=== PATIENT | male | born 1970 | race Caucasian/White ===

== ENCOUNTER 2024-09-23 12:54 | Outpatient (OUT) | payer MEDICARE, SELFPAY ==
--- NOTE | 2024-09-23 14:14 | P.CN_ITS ---
Consult Note: HPI Data of Consult Patient: new to practice Consult date: 09/23/24 Requesting Physician: Winston Owens MD Primary Care Provider: Non-Staff Physician, Consult Narrative Reason for consult: low back pain Narrative: 54yom who presents for evaluation. longstanding history of low back pain. imagi ng reviewed, shows moderate to severe facet arthropathy in lower lumbar spine. has completed >6 weeks of provider directed home exercises, without benefit. uses percocet, gabapentin, thc gummies. denies adverse med side effects. cc:: CC: Winston Owens MD Review of Systems ROS Status of ROS 10 or more systems reviewed and unremark able except as noted in history and below Exam Narrative Exam Narrative: Psych-alert and oriented x 3. Attentive and appropriate, constitutionally normal, displays normal mood and affect per situation.? There are no obvious deficits in memory, reasoning, or intellect.? Skin-no obvious rashes, bruising, erythema noted to the patient's area of pain. Extremities- extremities are warm with minimal edema and palpable pulses. Lumbar-no significant tenderness to palpation noted in the lumbar spine and paraspinal musculature.? Pain is elicited with extension, and lateral rotation of the lumbar spine. Range of motion is slightly diminished with these motions due to pain. Facet loading maneuvers are positive bilaterally and do appear to be concordant with the patient's normal complaints of pain.? Coordination remains intact.? Gait remains non-antalgic. Assessment and Plan Assessment and Plan (1) Lumbar spondylosis: (2) Lumbar stenosis with neurogenic claudication: Plan 54yom who presents for evaluation. failed conservative measures, as noted. imaging reviewed, as noted. given symptoms and imaging, prudent to attempt diagnostic bilateral l4-5, l5-s1 medial branch block under fluoroscopic guidance with intention of proceeding to radiofrequency ablation. he is in agreement. meds reviewed. uds obtained. agreed to prescribe percocet 5mg tid prn, as well as gabapentin 300mg tid. discussed that he needed to stop thc gummies. he expressed understanding. will recheck uds in 6 weeks. follow up after procedure.
== END 2024-09-23 12:55 | disposition home or self-care (01) ==
PROVIDERS: Visit Provider Anesthesiology
DX: M47.816 Spondylosis without myelopathy or radiculopathy, lumbar region (principal); M48.062 Spinal stenosis, lumbar region with neurogenic claudication
CPT/HCPCS: G0463

== ENCOUNTER 2024-11-04 09:17 | Day surgery (SDC) | payer MEDICARE, SELFPAY ==
[2024-11-04 09:50] LABS: Glucometer 165 mg/dL (74-106)
[2024-11-04 09:56] VITALS: BP 145/93; PULSE 108; TEMP 36.5; O2SAT 98
[2024-11-04 10:21] VITALS: BP 151/91; PULSE 90; O2SAT 95
[2024-11-04 10:22] VITALS: BP 148/89; PULSE 92; O2SAT 93
--- NOTE | 2024-11-04 10:24 | W.PM.PROCNOT ---
Date of procedure: 11/04/24 Pre-op diagnosis: Pain due to lumbar spondylosis without myelopathy Post-op diagnosis: same as pre-op Procedure: Procedure: Bilateral L4-5, L5-S1 medial branch block Medications: Bupivacaine 0.25% 6cc The patient was seen and examined in the preoperative holding area.? An informed consent was obtained and placed on the chart.? The patient was brought to the medical procedure unit and placed in the prone position.? A timeout was completed verifying correct patient, procedure site, positioning, plan, and special equipment.? Using aseptic technique, the needle was placed at left L4. Under direct fluoroscopic visualization a Quincke-tipped spinal needle was advanced to the junction of the superior articulating process with the transverse process at the designated medial branch segment.? Preceded by negative aspiration, the above-mentioned injectate was placed in 1 mL aliquots.? The procedure was repeated at left L5, S1.? The needle was removed and insertion site was covered. The same procedure, at the same levels, was completed on the right side. The patient was taken to the postprocedural recovery area and monitored for an appropriate length of time before found suitable for discharge in the company of a responsible adult. Anesthesia: Local Surgeon: Winsotn Owens Pathology: none sent Condition: stable Disposition: no change
[2024-11-04] MEDS: BUPIVACAINE HCL 0.25% PF 25 MG/10 ML VIAL 8 ML INJ (10:25)
[2024-11-04] MEDS: LIDOCAINE HCL 2% 400 MG/20 ML MDV 4 ML INJ (10:25)
== END 2024-11-04 10:30 | disposition home or self-care (01) ==
LOC: SURGOUT 09:18
PROVIDERS: Visit Provider Anesthesiology
DX: M47.816 Spondylosis without myelopathy or radiculopathy, lumbar region (principal); M54.50 Low back pain, unspecified; E11.8 Type 2 diabetes mellitus with unspecified complications; Z79.85 Long-term (current) use of injectable non-insulin antidiabetic drugs; Z79.84 Long term (current) use of oral hypoglycemic drugs; Z79.4 Long term (current) use of insulin
CPT/HCPCS: 36415; 64493; 64494; 82948; J0665

== ENCOUNTER 2024-11-06 13:57 | Outpatient (OUT) | payer MEDICARE, SELFPAY ==
--- NOTE | 2024-11-06 14:27 | P.CN_ITS ---
Consult Note: HPI Data of Consult Patient: known to practice within the last 3 years Requesting Physician: June Silveira NP Primary Care Provider: Non-Staff Physician, MD Consult Narrative Reason for consult: f/u Narrative: Marcelino Tracey a 54 year old male presents for evaluation of chronic low back pain secondary to lumbar facet arthropathy, lumbar DDD, spinal stenosis secondary to disc bulge. pt has failed to benefit from >6 weeks of PT and provider guided HEP, heat, ice, tylenol and NSAIDs. unfortunately pt failed his UDS as he was taking a family members methadone and we do not recommend controlled substances as part of his treatment plan. he recently underwent bilateral L4-5 L5-S1 mbb #1 with mild relief. cc:: CC: June Silveira NP Review of Systems ROS Status of ROS 10 or more systems reviewed and unremark able except as noted in history and below Musculoskeletal Reports: back pain, extremity pain and joint pain PFSH PFSH Medical History (Updated 11/06/24 @ 14:30 by June Silveira NP) Diabetes ?E11.9 - Type 2 diabetes mellitus without complications (ICD-10) Meds Home Medications and Allergies Home Medications ?Medication ?Instructions ?Recorded ?Confirmed ?Type gabapentin 300 mg capsule 300 mg PO TID #90 caps 09/23/24 11/04/24 Rx oxycodone-acetaminophen 5 mg-325 1 tab PO TID PRN pain #90 tabs 09/23/24 Rx mg tablet (Percocet) albuterol sulfate 90 mcg/actuation 2 inh inhalation Q6H PRN shortness 10/08/24 11/04/24 History aerosol inhaler (Ventolin HFA) of breath or wheezing carvedilol 3.125 mg tablet 3.125 mg PO Q12H 10/08/24 11/04/24 History citalopram 20 mg tablet 20 mg PO DAILY 10/08/24 11/04/24 History colestipol 1 gram tablet 1 g PO DAILY 10/08/24 11/04/24 History cyclobenzaprine 10 mg tablet 10 mg PO Q12H PRN spasms 10/08/24 11/04/24 History eluxadoline 100 mg tablet (Viberzi) 100 mg PO BID 10/08/24 11/04/24 History fenofibrate 160 mg tablet 160 mg PO DAILY 10/08/24 11/04/24 History hydrochlorothiazide 25 mg tablet 25 mg PO DAILY 10/08/24 11/04/24 History hyoscyamine sulfate 0.125 mg tablet 0.125 mg PO Q6H 10/08/24 11/04/24 History insulin aspart 1 sliding scale dose subcut 10/08/24 11/04/24 History (niacinamide)(U-100) 100 unit/mL(3 USEASDIRECTD mL) subcutaneous pen (Fiasp FlexTouch U-100 Insulin) insulin degludec 100 unit/mL (3 20 unit subcut DAILY 10/08/24 11/04/24 History mL) subcutaneous pen (Tresiba FlexTouch U-100 insulin) linagliptin 2.5 mg-metformin 1,000 1 tab PO BID 10/08/24 11/04/24 History mg tablet (Jentadueto) losartan 50 mg tablet 50 mg PO DAILY 10/08/24 11/04/24 History magnesium oxide 400 mg (241.3 mg 400 mg PO DAILY 10/08/24 11/04/24 History magnesium) tablet omeprazole 40 mg capsule,delayed 40 mg PO DAILY 10/08/24 11/04/24 History release ondansetron 4 mg disintegrating 4 mg translingual Q8H PRN nausea 10/08/24 11/04/24 History tablet and vomiting rifaximin 550 mg tablet (Xifaxan) 550 mg PO BID 10/08/24 11/04/24 History semaglutide 0.25 mg or 0.5 mg (2 0.5 mg subcut QWEEK 10/08/24 11/04/24 History mg/3 mL) subcutaneous pen injector (Ozempic) sucralfate 1 gram tablet 1 g PO Q6H 10/08/24 11/04/24 History tamsulosin 0.4 mg capsule 0.4 mg PO Q24H 10/08/24 11/04/24 History trazodone 50 mg tablet 50 mg PO DAILY 10/08/24 11/04/24 History Allergies Allergy/AdvReac Type Severity Reaction Status Date / Time insulin glargine (From Allergy Nausea Verified 11/04/24 09:55 Basaglar KwikPen U-100 Insulin) Exam Constitutional Documenting provider has reviewed patient's vital signs: yes Common normals: no apparent distress, oriented x3, healthy appearing, alert and well nourished General appearance: cooperative HENMT Common normals: normocephalic, hearing grossly normal bilaterally and moist oral mucous membranes Head and scalp: normocephalic Eye Common normals: PERRL Pupil: PERRL Neck & C-Spine Common normals: full ROM General: normal visual inspection Chest Common normals: inspection of chest normal Respiratory Common normals: normal respiratory effort, no retractions and no use of accessory muscles Back & Pelvis Lumbar spine/lower back: ROM limited, pain with ROM, lumbar spinal tenderness, paraspinal muscle tenderness and straight leg raise positive right Sacroiliac joints: SI joint(s) abnormal Other: decreased sensation right L4,5,S1 strength 4/5 in RLE 5/5 in LLE right SIJ positive nidia(patricks), gaenslens, thigh thrust, compression test Neuro Common normals: oriented x3, CN's II-XII intact bilaterally, moves all extremities, no focal motor deficits, no sensory deficits noted and deep tendon reflexes 2+ bilaterally Sensorium/orientation: alert Motor exam: strength 5/5 throughout and no movement abnormalities noted Psych Common normals: mental status grossly normal, thought process normal, cooperative, affect normal, speech normal and activity/motor behavior normal Speech: normal speech Thought process: normal thought process Results Additional Findings Additional findings: If on a controlled substance or opioids, I have checked an [place] report on this patient and there are no aberrancies noted in the prescribing history.??If on a controlled substance or opioid a drug screen was completed and reviewed within the last year, and if there has not been a drug screen completed we ordered one today to monitor higher risk, state monitored pain medication use. As part of providing excellent, safe, comprehensive care, the following was completed at our patient's visit: 1. A medication reconciliation and review to ensure accurate knowledge of current/active medications, including asking our patients to inform us about any [id number] medications or herbal remedies/nutritional supplements/alternative remedies. 2. A review to specifically ensure our patients have had annual screening for screening for depression, screening for tobacco use, and screening for unhealthy alcohol use. For concerning screenings had a discussion with the patient, provided patient education, and recommended follow-up with primary care provider when appropriate. If patient noted with a risk of falling, they received education on strength, gait, and balance training to prevent future risk of falling. Portions of this note may have been carried over from the previous visit and updated as appropriate. Please note this office utilizes paper charting in addition to the electronic medical record. A list of current medications, vitals, and PMH is available there as the clinical staff outside of myself do not have access to [employer] charting during the clinic day operations. As part of providing quality comprehensive care the current medications, vitals, and PMH were reviewed in the paper chart. Assessment and Plan Assessment and Plan (1) Lumbar stenosis with neurogenic claudication: Assessment and Plan: The patient has had over 3 months of moderate to severe low back and leg pain with functional impairment and inadequate response to conservative care including NSAIDS (unless there are contraindication such as concurrent blood thinners), multiple oral or topical pain medications, and home exercise pr ogram/physical therapy.? Patient has completed >6 weeks of guided home exercise program and/or formal physical therapy program without relief of their symptoms.? I have reviewed the imaging of the lumbar spine and no red flags were identified.? The imaging reveals radiographic findings consistent with lumbar stenosis with NC The Oswestry Disability Index was completed, and the patient scored a 70%.? The patient noted the following:?? moderate to severe pain with ADLs, standing, sitting, walking, sleeping, social life and travel We discussed the risks and benefits of the procedure with the patient, and we are NOT planning on using sedation as outlined in the guidelines from Medicare unless there is a documented reason that sedation would be strongly recommended.?? ?The procedure will be completed with fluoroscopic guidance.? (2) Sacroiliitis: Assessment and Plan: as noted above right positive nidia(patricks), gaenslens, thigh thrust, compression test (3) Lumbar spondylosis: Plan right L4-5 L5-S1 TFESI under fluoroscopy defer medication management continue HEP as tolerated consider right SIJ injection f/u after TFESI
== END 2024-11-06 13:58 | disposition home or self-care (01) ==
LOC: PM 13:57
PROVIDERS: Visit Provider Nurse Practitioner
DX: M48.062 Spinal stenosis, lumbar region with neurogenic claudication (principal); M46.1 Sacroiliitis, not elsewhere classified; M47.816 Spondylosis without myelopathy or radiculopathy, lumbar region
CPT/HCPCS: G0463

== ENCOUNTER 2024-12-27 20:51 | Emergency (ER) | payer MEDICARE, SELFPAY ==
[2024-12-27 21:04] VITALS: BP 150/99; PULSE 82; TEMP 36.7; O2SAT 95; BMI 30.3
--- OUTSIDE RECORDS SUMMARY | 2024-12-27 21:07 | XMS_ITS | CCD ---
Author Organization [facility] InformFormerly [facility] Care Team Providers Care Medical Accounting Clerk Name Role Phone DES FLORES Unavailable Unavailab le DES FLORES Unavailable Unavailab [facility] Admitting Unavailable [facility] Attending Unavailable ANSELMO GARCÍA Consulting Unavailable [facility] Consulting Unavailable Jd Du Primary Care Provider Jeff Mandel Attending Provider Jeff Mandel Unavailable Bird Slade Unavailable Asa Moeller Unavailable LUIS Du Primary Care Provider MD Asa Moeller Attending Provider [phone] Yung Figueroa Unavailable [phone] Sugar Knight Unavailable Guillermo Thornton Unavailable LUIS Du Primary Care Provider MD Asa Moeller Attending Provider [phone] [place] Unavailable LUIS Du Primary Care Provider MD Guillermo Thornton Attending Provider MD Jayleen Guaman Attending Provider [phone] LUIS Du Primary Care Provider MD Guillermo Thornton Attending Provider [phone] LUIS Du Primary Care Provider MD Guillermo Thornton Attending Provider [phone] JOHN Morel Jun Emergency Provider LUIS Du Attending Provider LUIS Du Primary Care Provider JD DU Primary Care Unavailable GEOFFREY MCKEE Attending Unavailable JEFF MARTIN Admitting Unavailable KATHERYN, ANNE F Consulting Unavailable MÓNICA PORTILLO Referring Unavailable DU, JD A Primary Care Unavailable LURINGERICK Admitting Unavailabl e LUERICK MARTÍNEZ Attending Unavailabl e AYANNA, JD A Primary Care Unavailable POTTSERINGY, CORTES P Consulting Unavailable EDIE ARREOLA Referring Unavailable DU, JD A Primary Care Unavailable DU, JD A Referring Unavailable DU, JD A Primary Care Unavailable CHEY LANZA Referring Unavailable AYANNA, JD A Primary Care Unavailable AYANNA, JD A Referring Unavailable AYANNA, JD A Primary Care Unavailable JALEN GAN Attending Unavailable AYANNA, JD A Primary Care Unavailable MARC KYES Attending Unavailable HEMATOLOGY, [facility] Consulting Laura vailable SHAYLA, LEATHA P Admitting Unavailable KATHERYN, ANNE F Consulting Unavailable CAYGITONG ESPINOZA Referring Unavailable DU, JD A Primary Care Unavailable POTHIREVERONICAY, CORTES P Attending Unavailable POTTSERINGY, CORTES P Referring Unavailable AYANNA, JD A Primary Care Unavailable ERICK SHARP Referring Unavailabl e AYANNA, JD A Primary Care Unavailable ERICK SHARP Attending Unavailabl e AYANNA JD A Primary Care Unavailable DEL VALLE, RUQIYYA T Admitting Unavailable DEL VALLE, RUQIYYA T Consulting Unavailable SHAYLA, LEATHA P Referring Unavailable DU, JD A Primary Care Unavailable MARQUEZTOM N Referring Unavailable DU, JD A Primary Care Unavailable CHEY LANZA Referring Unavailable AYANNA, JD A Primary Care Unavailable ANG FIGUEROA Attending Unavailable AYANNA, JD A Referring Unavailable DU, JD A Primary Care Unavailable MARQUEZ, TOM N Referring Unavailable DU, JD A Primary Care Unavailable ANG FIGUEROA Referring Unavailable ALCIDES, CLEMSON Primary Care Unavailable ANG FIGUEROA Attending Unavailable AYANNA, JD A Referring Unavailable ALCIDES, CLEMSON Primary Care Unavailable REHANA RETANA Referring Unavailable ALCIDES, CLEMSON Primary Care Unavailable ANG FIGUEROA Attending Unavailable ALCIDES, DIANE Referring Unavailable ALCIDES, DIANE Primary Care Unavailable TOM MARQUEZ Referring Unavailable ALCIDES, CLEMSON Primary Care Unavailable TANK, ANG Referring Unavailable LACIDES, DIANE Primary Care Unavailable TANK, ANG Attending Unavailable ALCIDES, DIANE Referring Unavailable ALCIDES, DIANE Primary Care Unavailable TANK, ANG Referring Unavailable MAURO, FRANCISCA Primary Care Unavailable TANK, ANG Attending Unavailable ALCIDES, DIANE Referring Unavailable MAURO, FRANCISCA Primary Care Unavailable Alcides DEPUTY JAILER, [place] Unavailable Novalocatpedro WILSON, [place] Provider [facility] WILSON, Marcell Unavailable DIONTE FREEMAN Attending Unavailable DIONTE FREEMAN Referring Unavailable CHEY ROMANO Attending Unavailable DIONTE FREEMAN Referring Unavailable DIONTE FREEMAN Attending Unavailable ERICK NAYLOR Attending Unavailable MARCELL BADILLO Referring Unavailable Mauro WILSON, [facility] Primary Care Provider [phone] Aby CADENA-CMarcell Attending Provider [facility] [phone] Jd Du PA-C Primary Care Provider [phone] Alcides HOSPITAL CHIEF FINANCIAL OFFICER-BLENDER HELPER, [place] Primary Care Provider Alcides HOSPITAL CHIEF FINANCIAL OFFICER-BLENDER HELPER, [place] Primary Care Provider Jun Arriola DO Unavailable [phone] Sulma AGUERO, Lorie Unavailable Gianna Hodge APRN.CNP Unavailable [phone] Jd Du PA-C Primary Care Provider Roman WILSON, Winston Glass Attending Unavailable Roman WILSON, Winston Glass Attending Unavailable JD UD Primary Care Unavailable MÓNICA PORTILLO Attending Unavailable MÓNICA PORTILLO Attending Unavailable MÓNICA PORTILLO Referring Unavailable JD DU Primary Care Unavailable MÓNICA PORTILLO Attending Unavailable MÓNICA PORTILLO Referring Unavailable JD DU Primary Care Unavailable ALCIDES, DIANE Referring Unavailable JD DU Primary Care Unavailable EDDIE TORRE Attending Unavailable ALCIDES, DIANE Referring Unavailable ALCIDES, DIANE Primary Care Unavailable ALCIDES, DIANE Primary Care Unavailable BRENNEN MICHELLE Attending Unavailable BRENNEN MICHELLE Referring Unavailable ALCIDES, DIANE Primary Care Unavailable BRENNEN MICHELLE Attending Unavailable BRENNEN MICHELLE Referring Unavailable ALCIDES, DIANE Primary Care Unavailable MAURO, FRANCISCA Referring Unavailable ALCIDES, DIANE Primary Care Unavailable ALCIDES, DIANE Primary Care Unavailable RACHEL CASTRO Attending Unavailable MARCELL BADILLO Referring Unavailable ALCIDES, DIANE Primary Care Unavailable MAURO, FRANCISCA Primary Care Unavailable SUNIL HART Attending Unavailabl e MAURO, FRANCISCA Primary Care Unavailable LAKSHMI DOSS Attending Unavailable Mauro MD [facility] Primary Care Provider VIVEK GILLIS I Attending Unavailable MAURO, FRANCISCA Referring Unavailable MAURO, FRANCISCA Primary Care Unavailable MAURO, FRANCISCA Referring Unavailable MAURO, FRANCISCA Primary Care Unavailable MARCELL BADILLO Attending Unavailable ALCIDES, DIANE Referring Unavailable MAURO, FRANCISCA Primary Care Unavailable JD DU Referring Unavailable JD DU Primary Care Unavailable Mauro MD, [facility] Primary Care Provider Guillermo Thornton MD Attending Provider [phone] Marcell Badillo Admitting Unavailable Marcell Badillo Attending Unavailable Mauro, Francisca Primary Care Unavailable Guillermo Thornton Admitting Unavailable Guillermo Thornton Attending Unavailable Mauro, Francisca Primary Care Unavailable Mauro MD, [facility] Primary Care Provider ABRAHAN RINALDI Admitting Unavailable MAURO, FRANCISCA Primary Care Unavailable IESHA ABRAHAN G Referring Unavailable ABRAHAN RINALDI Attending Unavailable JD DU Primary Care Unavailable ABRAHAN RINALDI Referring Unavailable VENNZAC CAMEJO Attending Unavailable JD DU Primary Care Unavailable ABRAHAN RINALDI Referring Unavailable MARTHA FAULKNER Referring Unavailable JD DU Primary Care Unavailable ABRAHAN RINALDI Attending Unavailable JD DU Primary Care Unavailable Unavailable Unavailable Unavailable Allergies Allergy Classification Reported Allergen(s) Allergy Type Date of Onset Reaction(s) Facility (20 sources) Insulin Glargine; Translations: [INSULIN GLARGINE] Drug Allergy 03-21-2023 GI intolerance, Nausea And Vomiting, GI Disturbance, GI Upset [facility] (5 sources) Clindamycin; Translations: [CLINDAMYCIN] Drug Allergy 11-28-2024 Other: See Comments [facility] Medications Current Medications Medication Drug Class(es) Dates Sig (Normalized) Sig (Original) acetaminophen 500 mg oral tablet (16 sources) Start: 02-12-2024 End: 02-22-2024 take 1 tablet by mouth every four hours as needed for pain acetaminophen (TYLENOL EXTRA STRENGTH) 500 mg tablet Indications: Closed fracture of right hip, initial encounter ([facility]) Take 1 tablet (500 mg total) by mouth every 4 (four) hours as needed for pain for up to 10 days. 60 tablet 02/12/2024 02/22/2024 Active Start: 02-03-2024 End: 02-13-2024 take 2 tablets by mouth three times daily acetaminophen (TYLENOL EXTRA STRENGTH) 500 mg tablet Take 2 tablets (1,000 mg total) by mouth 3 (three) times a day for 10 days. 02/03/2024 02/12/2024 Discontinued (Reorder) Start: 01-29-2024 take 1 tablet by afua th every eight hours 1,000 mg, oral, Every 8 hours, First dose on Mon01/29/24 at 1200, Recommend minimized narcotics, while still providing adequate analgesia, to minimize risk of sedation and delirium. The oral route is preferred for patients tolerating oral intake without nausea and vomiting. Use IV pain medications if the oral route is ineffective for symptom control, or if patient unable to take medications orally. Start: 01-17-2024 End: 01-22-2024 take 1000 mg by mouth every six hours 1,000 mg, oral, Every 6 hours scheduled, First dose on Mon01/17/24 at 1800 Start: 11-03-2021 End: 02-03-2024 take 2 tablets by mouth every six hours acetaminophen (TYLENOL EXTRA STRENGTH) 500 mg tablet Take 2 tablets (1,000 mg total) by mouth every 6 (six) hours. 30 tablet 11/03/2021 02/03/2024 Discontinued acetaminophen 325 mg / oxyCODONE hydrochloride 5 mg oral tablet (20 sources) Opioid Agonist Start: 08-08-2024 End: 09-04-2024 oxyCODONE-acetaminophen (PERCOCET) 5-325 mg per tablet Indications: Lumbar radiculopathy, chronic Take 1 tablet by mouth every 8 (eight) hours as needed for pain. Max Daily Amount: 3 tablets 21 tablet 09/04/2024 Active Start: 07-31-2024 End: 08-05-2024 oxyCODONE-acetaminophen (PER COCET) 5-325 mg per tablet Indications: Lumbar radiculopathy, chronic Take 1 tablet by mouth every 8 (eight) hours as needed for pain. Max Daily Amount: 3 tablets 21 tablet 07/31/2024 08/05/2024 Discontinued (Reorder) Start: 07-18-2024 End: 07-25-2024 oxyCODONE-acetaminophen (PER COCET) 5-325 mg per tablet Indications: Lumbar radiculopathy, chronic Take 1 tablet by mouth every 8 (eight) hours as needed for pain. Max Daily Amount: 3 tablets 21 tablet 07/24/2024 Active Start: 08-27-2022 take 1 tablet by afua th twice daily as needed oxyCODONE-Acetaminophen 5-325 MG 1 table t as needed Oral twice daily (*do not refill until 08/27/22) for 30 days G89.29 Chronic pain Aug, Active Start: 06-28-2022 take 1 tablet by afua th twice daily as needed oxyCODONE-Acetaminophen 5-325 MG 1 table t as needed Oral twice daily for 30 days G89.29 Chronic pain Jun, Active Start: 05-24-2022 oxyCODONE-Acet aminophen 5-325 MG 1 tablet as needed Oral twice daily(do not fill until 05/29/22) for 30 days G89.29 Chronic pain May, Active Start: 04-27-2022 take 1 tablet by afua th twice daily as needed oxyCODONE-Acetaminophen 5-325 MG 1 table t as needed Oral twice daily for 30 days G89.29 Chronic pain Apr, Active Start: 05-13-2019 End: 02-28-2024 take 1-2 tablets by mouth every six hours as needed for pain Oxycodone-Acetaminophen (Percocet) 5-325 mg tablet Discontinued 2 TAB PO Q6H as needed for pain 45 7 June 14, 2019 August 03, 2022 11:50am 1-2 tabs po q 6 hours prn pain oxyCODONE-Acetam inophen 5-325 MG Oral for 7 Active albuterol 0.833 mg/ml / ipratropium bromide 0.167 mg/ml inhalation solution (1 source) Anticholinergic, beta2-Adrenergic Agonist Start: 01-29-2024 take 3 mL by inhalation every six hours as needed for wheezing Albuterol Sulfate 90 mcg/actuation HFA aerosol inhaler (3 sources) Start: 11-20-2018 Albuterol Sulfate 90 mcg/actuation HFA aerosol inhaler Active 1 PUFF INHALATION As Directed as needed for Shortness Of Breath November 20, 2018 12:00am Start: 11-20-2018 Albuterol Sulf ate 90 mcg/actuation HFA aerosol inhaler Active 1 PUFF INHALATION As Directed as needed for Shortness Of Breath November 19, 2018 11:00pm atorvastatin 40 mg oral tablet (6 sources) HMG-CoA Reductase Inhibitor take 1 tablet by mouth once daily atorvastatin (LIPITOR) 40 mg tablet Take 40 mg by mouth once daily. Active calcium citrate 950 mg oral tablet (16 sources) Start: End: take 2 tablets by mouth three times daily calcium citrate (CALCITRATE) 200 mg (950 mg) tablet Take 2 tablets (400 mg total) by mouth 3 (three) times a day for 30 days. 180 tablet 03/14/2024 04/13/2024 Active Start: 01-29-2024 take 400 mg by mouth three times daily at mealtime 400 mg, oral, 3 times daily with meals, First dose on Mon01/29/24 at 1200 Start: 01-22-2024 End: 02-21-2024 calcium citrate (CALCITRATE) 200 mg (950 mg) tablet Take 2 tablets (400 mg total) by mouth in the morning and 2 tablets (400 mg total) at noon and 2 tablets (400 mg total) in the evening. Take with meals. Do all this for 30 days. 180 tablet 01/22/2024 02/21/2024 Active Start: 01-18-2024 End: 01-22-2024 take 400 mg by mouth three times daily at mealtime 400 mg, oral, 3 times daily with meals, First dose on Whitney 01/18/24 at 1345 carvedilol 3.125 mg oral tablet (20 sources) alpha-Adrenergic Trung, beta-Adrenergic Trung Start: 02-28-2024 End: 12-05-2024 take 1 tablet by mouth twice daily at mealtime Carvedilol 3.125 mg tablet Active 3.125 MG PO Twice daily 180 90 December 05, 2024 1:48pm must administer with a meal/food Start: 03-21-2023 End: 06-05-2024 take 1 tablet by mouth twice daily at mealtime Carvedilol 6.25 mg tablet Discontinued 6.25 MG PO Twice daily 60 March 21, 2023 12:00am June 05, 2024 1:35pm must administer with a meal/food End: 07-18-2024 take 0.5 tablet by mouth in the morning, then take 0.5 tablet by mouth at mealtime carvediloL (COREG) 6.25 mg tablet Take 0.5 tablets (3.125 mg total) by mouth in the morning and 0.5 tablets (3.125 mg total) in the evening. Take with meals. 07/18/2024 Discontinued citalopram 20 mg oral tablet (20 sources) Serotonin Reuptake Inhibitor Start: 02-22-2018 End: 01-22-2024 take 1 tablet by mouth once daily Citalopram 20 mg Tablet Active 20 MG PO Daily February 22, 2018 12:00am take 1 tablet by mouth once miah y citalopram (CELEXA) 40 mg tablet Indications: Malignant neoplasm of descending colon (HCC) Take 40 mg by mouth once daily. Active take 2 tablets by mouth once alejandra ly citalopram (CELEXA) 20 mg tablet Indications: Malignant neoplasm of descending colon (HCC) Take 40 mg by mouth once daily. Active cyclobenzaprine hydrochloride 10 mg oral tablet (20 sources) Muscle Relaxant Start: 01-29-2024 take 10 mg by mouth twice daily as needed for muscle spasms 10 mg, oral, 2 times daily PRN, muscle spasms, Starting on 01/29/24 at 1151 Start: 03-21-2023 take 1 tablet by afua once daily as needed for muscle spasms Cyclobenzaprine 10 mg tablet Active 10 MG PO Daily as needed for Muscle Spasm March 21, 2023 12:00am Start: 06-09-2020 End: 01-22-2024 take 10 mg by mouth twice daily as needed for muscle spasms 10 mg, oral, 2 times daily PRN, muscle spasms, Starting on Mon01/17/24 at 1714 take 1 tablet by afua three times daily cyclobenzaprine (FLEXERIL) 10 mg tablet Take 10 mg by mouth three times a day. Active DEXCOM G7 SENSOR device (20 sources) Start: 02-11-2024 DEXCOM G7 SENS OR device 02/11/2024 Active Start: 02-11-2024 DEXCOM G7 SENS OR device USE DIRECTED AND CHANGE EVERY 10 DAYS 02/11/2024 Active docusate sodium 50 mg / sennosides, halfway 8.6 mg oral tablet (10 sources) Start: 01-29-2024 take 2 tablets by mouth once daily 2 tablet, oral, Nightly, First dose on Mon01/29/24 at 2200 Start: 01-22-2024 take 2 tablets by mo [facility] in the morning sennosides-docusate sodium (SENOKOT-S) 8.6-50 mg Take 2 tablets by mouth in the morning and 2 tablets before bedtime. 60 tablet 1 01/22/2024 Suspended Start: 01-17-2024 End: 01-22-2024 take 2 tablets by mouth twice daily 2 tablet, oral, 2 times daily, First dose on Mon01/17/24 at 2100 Start: 11-03-2021 End: 01-17-2024 take 2 tablets by mouth in the morning sennosides-docusate sodium (SENOKOT-S) 8.6-50 mg Take 2 tablets by mouth in the morning and 2 tablets before bedtime. 60 tablet 1 11/03/2021 01/17/2024 Discontinued (Therapy completed) enteric contrast (will be provided with radiology test) (3 sources) Start: 05-28-2018 End: 11-25-2024 enteric contrast (will be provided with radiology test) For CT ABD/PEL W IVCON Routine order Administer, As Directed One Time Only, via Oral, Rectal, both Oral and Rectal, Enteric Tube, Stoma or Indwelling Catheter, Enteric Contrast as designated per enteric contrast guidelines 1 Each 05/28/2018 11/25/2024 Discontinued Start: 05-28-[address] (will be provided with radiology test) For CT ABD/PEL W IVCON Routine order Administer, As Directed One Time Only, via Oral, Rectal, both Oral and Rectal, Enteric Tube, Stoma or Indwelling Catheter, Enteric Contrast as designated per enteric contrast guidelines 1 Each 05/28/2018 Active ergocalciferol 1.25 mg oral capsule (7 sources) Provitamin D2 Compound Start: 01-25-2024 End: 02-09-2024 take 64771 [IU] by mouth every week 50,000 Units, oral, Weekly, First dose on Mon01/29/24 at 1200 Start: 01-18-2024 End: 01-22-2024 take 31257 [IU] by mouth every week 50,000 Units, oral, Weekly, First dose on Mon01/18/24 at 1345, For 8 doses folic acid 1 mg oral tablet (20 sources) Start: 02-04-2024 End: 02-03-2024 take 1 tablet by mouth in the morning folic acid (FOLVITE) 1 mg tablet Take 1 tablet (1 mg total) by mouth in the morning. 02/04/2024 02/03/2024 Discontinued (Stop Taking at Discharge) Start: 01-29-2024 End: 07-18-2024 take 1 mg by mouth once daily 1 mg, oral, Daily, First dose on Mon01/29/24 at 1345, Look-alike/sound-alike medication - verify indication for use. gabapentin 300 mg oral capsule (20 sources) Anti-epileptic Agent Start: 06-21-2024 take 1 capsule by mouth in the morning, then take 1 capsule by mouth at bedtime gabapentin (NEURONTIN) 300 mg capsule Take 1 capsule (300 mg total) by mouth in the morning and 1 capsule (300 mg total) before bedtime. 06/21/2024 Active Start: 01-17-2024 End: 01-22-2024 take 800 mg by mouth four times daily for pain 800 mg, oral, 4 times daily, First dose (after last modification) on Mon01/17/24 at 2200, Look-alike/sound-alike medication - verify indication for use., Indications: neuropathic pain Start: 12-10-2023 End: 07-18-2024 take 800 mg by mouth three times daily for pain 800 mg, oral, 3 times daily, First dose on 01/29/24 at 1400, Look-alike/sound-alike medication - verify indication for use., Indications: neuropathic pain Start: 08-03-2022 End: 06-05-2024 take 1 capsule by mouth three times daily Gabapentin 400 mg capsule Discontinued 400 MG PO Three times daily August 03, 2022 1:00am June 05, 2024 1:36pm Start: 02-22-2018 End: 08-03-2022 take 1 capsule by mouth three times daily Gabapentin 300 mg Capsule Discontinued 300 MG PO Three times daily February 22, 2018 12:00am August 03, 2022 11:49am End: 11-28-2024 gabapentin (NEURONTIN) 300 m g capsule Indications: Malignant neoplasm of descending colon (HCC) Take 400 mg by mouth three times a day. 11/28/2024 Discontinued glucagon (rdna) 1 mg injection (2 sources) Antihypoglycemic Agent Start: 02-03-2024 1 mg, i ntramuscular, As needed, low blood sugar, blood glucose less than 70 mg/dL and unconscious or NPO without IV access., Starting on 02/03/24 at 1101, If conscious and not NPO, immediately follow with meal tray or high protein (7Grams) snack if tray not available. If NPO, initiate IV 5% Dextrose/Water at 100 mL/hr and contact prescriber for additional orders. If blood glucose is not greater than 70 mg/dL after initial treatment, repeat treatment. Start: 01-17-2024 End: 01-22-2024 150 ml glucose 50 mg/ml injection (6 sources) Start: 02-03-2024 25 mL, intrave nous, As needed, low blood sugar, blood glucose less than 70 mg/dL and unconscious or NPO with IV access, Starting on 02/03/24 at 1101, Push over 1-3 minutes STAT. If conscious and not NPO, immediately follow with meal tray or high protein (7 grams) snack if tray not available. If NPO, initiate 5% dextrose in water at 100 mL/hr and contact prescriber for additional orders. If blood glucose is not greater than 70 mg/dL after initial treatment, repeat treatment. VESICANT (RED) Warning: HYPERTONIC solution. Start: 02-03-2024 take 70 mg intraveno usly every hour 100 mL/hr, intravenous, Continuous PRN, blood glucose less than 70 mg/dL, Starting on 02/03/24 at 1101, Use immediately following dextrose 50% or glucagon treatment for patients who are unconscious or NPO. Contact prescriber for additional orders. If blood glucose is not greater than 70 mg/dL after initial treatment, repeat treatment. Start: 01-29-2024 Start: 01-17-2024 End: 01-22-2024 Start: 01-17-2024 End: 01-22-2024 Start: 01-17-2024 End: 01-22-2024 1 ml hydrALAZINE hydrochloride 20 mg/ml injection (1 source) Arteriolar Vasodilator Start: 01-29-2024 take 10 mg intravenously every six hours as needed hydroCHLOROthiazide 25 mg oral tablet (20 sources) Thiazide Diuretic Start: 03-21-2023 End: 05-02-2024 take 1 tablet by mouth once daily Hydrochlorothiazide 25 mg tablet Active 25 MG PO Daily May 02, 2024 8:46am Start: 08-03-2022 End: 03-21-2023 take 1 tablet by mouth once daily Hydrochlorothiazide 12.5 mg tablet Discontinued 12.5 MG PO Daily August 03, 2022 1:00am March 21, 2023 12:15pm Start: 11-20-2018 End: 05-02-2019 take 1 tablet by mouth once daily Hydrochlorothiazide 25 mg tablet Discontinued 25 MG PO Daily November 20, 2018 12:00am May 02, 2019 3:16pm Ibuprofen (20 sources) Nonsteroidal Anti-inflammatory Drug Start: 06-05-2024 ibuprofen Active PO June 04, 2024 11:00pm Start: 06-05-2024 ibuprofen Acti ve PO June 05, 2024 12:00am Start: 02-12-2024 End: 07-18-2024 take 1 tablet by mouth three times daily ibuprofen (MOTRIN) 800 mg tablet Indications: Closed fracture of right hip, initial encounter ([facility]) Take 1 tablet (800 mg total) by mouth 3 (three) times a day. 90 tablet 3 02/12/2024 07/18/2024 Discontinued Start: 11-03-2021 End: 11-25-2024 take 1 tablet by mouth every six hours as needed for pain 800 mg, oral, Every 6 hours PRN, mild pain - pain scale 1-3, Starting on Mon01/17/24 at 1714, Look-alike/sound-alike medication - verify indication for use. Take/Give with food or milk. 3 ml insulin aspart, human 100 unt/ml pen injector (20 sources) Insulin Analog Start: 01-23-2024 FIASP FLEXTOUC H U-100 INSULIN 100 unit/mL (3 mL) insulin pen 01/23/2024 Active Start: 01-23-2024 inject 18 [IU] by [place] bcutaneous injection at mealtime FIASP FLEXTOUCH U-100 INSULIN 100 unit/mL (3 mL) insulin pen INJECT 18 UNITS UNDER THE SKIN WITH MEALS 01/23/2024 Active Start: 12-11-2023 Fiasp FlexTouc h 100 UNIT/ML injection 12/11/2023 Active NovoLOG FlexPen 100 UNIT/ML as directed Subcutaneous Active 3 ml insulin degludec 100 unt/ml pen injector (20 sources) Insulin Analog Start: 11-14-2023 inject 40 [IU] by subcutaneous injection once daily Tresiba FlexTouch 100 UNIT/ML injection ADMINISTER 40 UNITS UNDER THE SKIN EVERY DAY 11/14/2023 Active inject 20 [IU] by [place] bcutaneous injection in the morning TRESIBA FLEXTOUCH U-100 100 unit/mL (3 mL) insulin pen Inject 20 Units under the skin in the morning. Active Tresiba FlexTouc h 100 UNIT/ML as directed Subcutaneous Active 3 ml insulin glargine 100 unt/ml pen injector (20 sources) Insulin Analog Start: 01-29-2024 20 Units, subc utaneous, Daily, First dose on Mon01/29/24 at 1200, Look-alike/sound-alike medication - verify indication for use. Prime with 2 units of insulin prior to administration. Basal (long acting) insulin for subcutaneous administration only. Do not mix with any other insulin. Pre-filled pens stable 28 days at room temperature. Start: 02-22-2018 inject 45 [IU] by [place] bcutaneous injection once daily at bedtime Insulin Glargine (Lantus U-100 Insulin) 100 unit/mL Solution Active 45 UNIT SUBCUT Daily at bedtime February 22, 2018 8:55am End: 01-17-2024 inject 45 [IU] by subcutaneous injection once daily insulin glargine (LANTUS) 100 unit/mL (3 mL) insulin pen Inject 45 Units under the skin nightly. 01/17/2024 Discontinued (Discontinued by another clinician) Lantus SoloStar 100 UNIT/ML Subcutaneous for 26 Active insulin glargine,hum.rec.anl og (LANTUS SUBCUTANEOUS) (3 sources) End: 11-25-2024 insulin glargine,hum.rec.anl og (LANTUS SUBCUTANEOUS) Indications: Malignant neoplasm of descending colon (HCC) Inject 40 Units subcutaneously. 11/25/2024 Discontinued insulin glargine ,hum.rec.anlog (LANTUS SUBCUTANEOUS) Indications: Malignant neoplasm of descending colon (HCC) Inject 40 Units subcutaneously. Active iv contrast (will be provide d with radiology test) (3 sources) Start: 05-28-2018 End: 11-25-2024 iv contrast (will be provide d with radiology test) CT ABD/PEL -Inject, intravenously, once for 1 dose.No IV access, insert saline lock prior to the beginning of sedation, infusion, injection of imaging exam. Discontinue saline lock post exam. If Pt. has a central line or IVAD, may access for administration according to line specific nursing protocol. Once exam is complete flush line and de-access according to line specific nursing protocol in the CT contrast administration guidelines link. 1 Each 05/28/2018 11/25/2024 Discontinued Start: 05-28-2018 iv contrast (w ill be provided with radiology test) CT ABD/PEL -Inject, intravenously, once for 1 dose.No IV access, insert saline lock prior to the beginning of sedation, infusion, injection of imaging exam. Discontinue saline lock post exam. If Pt. has a central line or IVAD, may access for administration according to line specific nursing protocol. Once exam is complete flush line and de-access according to line specific nursing protocol in the CT contrast administration guidelines link. 1 Each 05/28/2018 Active linagliptin 2.5 mg / metFORMIN hydrochloride 1000 mg oral tablet (20 sources) Biguanide, Dipeptidyl Peptidase 4 Inhibitor Start: 12-01-2023 linaGLIPtin-metFORMI N (Gildueto) 2.5-1000 MG tablet 1 tablet 12/01/2023 Active Start: 02-22-2018 End: 02-28-2024 take 1 tablet by mouth twice daily Linagliptin-Metformin 2.5-1,000 mg table t Active 1 TAB PO Twice daily December 01, 2023 12:00am FreeTextSig: TAKE 1 TABLET BY MOUTH TWICE DAILY Oral; Note: Source Status: Taking; Refills: 0; Provider: Yany Pang LORazepam 0.5 mg oral tablet (11 sources) Benzodiazepine Start: 07-18-2024 LORazepam (ATIVAN) 0.5 mg tablet Indications: Lumbar radiculopathy, chronic , Anxiety Take 1 tablet by mouth 90 min prior to MRI and may take 1 tablet 30 min prior if needed for anxiety 2 tablet 07/18/2024 Active losartan potassium 50 mg oral tablet (20 sources) Angiotensin 2 Receptor Trung Start: 01-30-2024 take 1 tablet by mouth once daily losartan (COZAAR) 50 mg tablet Take 1 tablet (50 mg total) by mouth nightly. 30 tablet 02/09/2024 Active Start: 01-19-2024 End: 01-22-2024 take 100 mg by mouth once daily 100 mg, oral, Daily, First dose on Mon01/19/24 at 0900, Look-alike/sound-alike medication - verify indication for use. Start: 08-03-2022 take 1 tablet by afua th once daily Losartan 100 mg tablet Active 100 MG PO Daily August 03, 2022 1:00am magnesium oxide 400 mg oral tablet (20 sources) Start: 03-21-2023 take 1 tablet by mouth once daily Magnesium Oxide 400 mg (241.3 mg magnesium) tablet Active 400 MG PO Daily March 21, 2023 12:00am take 1 capsule by mouth once alejandra ly magnesium oxide 400 mg magnesium cap Take 400 mg by mouth once daily. Active methylPREDNISolone (1 source) Corticosteroid Start: 11-12-2024 methylPREDNISolone (MEDROL, NAJMA,) 4 mg tablet follow package directions 21 tablet 11/12/2024 Active multivitamin tablet (3 sources) End: 11-25-2024 take 1 tablet by mouth once daily multivitamin tablet Indications: Malignant neoplasm of descending colon (HCC) Take 1 tablet by mouth once daily. 11/25/2024 Discontinued take 1 tablet by mouth once miah y multivitamin tablet Indications: Malignant neoplasm of descending colon (HCC) Take 1 tablet by mouth once daily. Active omeprazole 40 mg delayed release oral capsule (20 sources) Proton Pump Inhibitor Start: 08-10-2023 End: 12-05-2024 omeprazole (PRILOSEC) 40 mg capsule Take 40 mg by mouth. 12/01/2023 Active 12 hr orphenadrine citrate 100 mg extended release oral tablet (1 source) Muscle Relaxant Start: 11-12-2024 take 1 tablet by mouth twice daily as needed for pain orphenadrine (NORFLEX) 100 mg 12 hr tablet Take 1 tablet (100 mg total) by mouth 2 (two) times a day as needed for muscle spasms or pain. 14 tablet 11/12/2024 Active OZEMPIC 0.25 mg or 0.5 mg (2 mg/3 mL) pen injector (20 sources) Start: 03-21-2023 inject 0.5 mg by subcutaneous injection every week OZEMPIC 0.25 mg or 0.5 mg (2 mg/3 mL) pen injector Inject 0.5 mg under the skin once a week. Monday03/21/2023 Active Start: 03-21-2023 inject 0.5 mg by sub cutaneous injection every week OZEMPIC 0.25 mg or 0.5 mg (2 mg/3 mL) pen injector Inject 0.5 mg under the skin once a week. Monday03/21/2023 Suspended Start: 03-21-2023 inject 0.5 mg by sub cutaneous injection every week OZEMPIC 0.25 mg or 0.5 mg (2 mg/3 mL) pen injector Inject 0.5 mg under the skin once a week. Monday03/21/2023 Ozempic, 0.25 or 0.5 MG/DOSE, 2 MG/3ML solution pen-injector (2 sources) inject 0.5 mg by subcutaneous injection every week Ozempic, 0.25 or 0.5 MG/DOSE, 2 MG/3ML solution pen-injector Inject 0.5 mg under the skin 1 (one) time per week Active predniSONE 20 mg oral tablet (20 sources) Start: 07-18-2024 End: 09-04-2024 take 1 tablet by mouth in the morning predniSONE (DELTASONE) 20 mg tablet Indications: Lumbar radiculopathy, chronic Take 1 tablet (20 mg total) by mouth in the morning. 7 tablet 07/24/2024 Active Start: 06-03-2024 End: 07-18-2024 take 1 tablet by mouth once daily predniSONE (DELTASONE) 50 mg tablet 1 tablet Orally Once a day for 5 days 06/03/2024 07/18/2024 Discontinued Start: 11-01-2023 End: 02-28-2024 Prednisone 10 mg tablet Disc ontinued 10 MG PO Daily November 01, 2023 12:00am February 28, 2024 1:08pm 60mg daily for three days, 40mg daily for three days, 20mg daily for three days, 10mg daily for three days. predniSONE 10 MG Oral for 12 Not-Taking Semaglutide (20 sources) Start: 12-05-2024 Semaglutide (O zempic) 0.25 mg or 0.5 mg (2 mg/3 mL) pen injector Active 0.25 MG SUBCUT every week December 05, 2024 12:00am for 4 weeks Start: 12-01-2023 End: 02-28-2024 Semaglutide (Ozempic) 0.25 m g or 0.5 mg (2 mg/3 mL) pen injector Discontinued 0.25 MG SUBCUT every week November 30, 2023 11:00pm February 28, 2024 12:09pm for 4 weeks Start: 12-01-2023 End: 02-28-2024 Semaglutide (Ozempic) 0.25 m g or 0.5 mg (2 mg/3 mL) pen injector Discontinued 0.25 MG SUBCUT every week December 01, 2023 12:00am February 28, 2024 1:09pm for 4 weeks Start: 12-01-2023 Semaglutide (O zempic) 0.25 mg or 0.5 mg (2 mg/3 mL) pen injector Active 0.25 MG SUBCUT every week December 01, 2023 12:00am for 4 weeks Start: 03-21-2023 End: 02-28-2024 Semaglutide (Ozempic) 0.25 m g or 0.5 mg (2 mg/3 mL) pen injector Discontinued 0.5 MG SUBCUT every week March 20, 2023 11:00pm February 28, 2024 12:09pm Start: 03-21-2023 End: 02-28-2024 Semaglutide (Ozempic) 0.25 m g or 0.5 mg (2 mg/3 mL) pen injector Discontinued 0.5 MG SUBCUT every week March 21, 2023 12:00am February 28, 2024 1:09pm Start: 03-21-2023 Semaglutide (O zempic) 0.25 mg or 0.5 mg (2 mg/3 mL) pen injector Active 0.5 MG SUBCUT every week March 20, 2023 11:00pm Start: 03-21-2023 Semaglutide (O zempic) 0.25 mg or 0.5 mg (2 mg/3 mL) pen injector Active 0.5 MG SUBCUT every week March 21, 2023 12:00am semaglutide 0.25 mg/0.5 mL (0.5 mg/mL) subcutaneous compounded injection (6 sources) semaglutide 0.25 mg/0.5 mL (0.5 mg/mL) subcutaneous compounded injection Inject subcutaneously one time a week. Active sucralfate 1000 mg oral tablet (20 sources) Aluminum Complex Start: 01-29-2024 1 g, oral, 4 times daily, First dose on Mon01/29/24 at 1300, Administer with water on an empty stomach. To reduce the potential of adversely affecting the absorption of other drugs, administer other drugs 2 hours prior to sucralfate DO NOT give with enteral feedings- consider alternative agents: PPI or H2 receptor antagonist Start: 08-25-2021 End: 06-05-2024 take 1 tablet by mouth three times daily Sucralfate 1 gram tablet Discontinued 1 GM PO Three times daily August 03, 2022 1:00am June 05, 2024 1:38pm Start: 08-25-2021 take 1 tablet by afua th every eight hours Sucralfate 1 GM 1 tablet on an empty stomach Orally tid for 30 days Aug, Active Start: 08-25-2021 take 1 tablet by afua th three times daily Sucralfate 1 GM 1 tablet on an empty stomach Orally tid for 30 days Aug, Active SZSTANDARD1-Topical Cream Baclofen 2%, Cyclobenzaprine HCL 2%, Diclofenac Na 3%, Gabapentin 6%, Lidocaine HCL 2% Cream (14 sources) Start: 06-28-2022 SZSTANDARD1-Topical Cream Baclofen 2%, Cyclobenzaprine HCL 2%, Diclofenac Na 3%, Gabapentin 6%, Lidocaine HCL 2% Cream NEEDED TOPICALLY APPLY 1-2 GRAMS FOR 2-3 MINUTES EVERY 6-8 HOURS for 30 days g89.29 chronic pain Jun, Active tamsulosin hydrochloride 0.4 mg oral capsule (20 sources) alpha-Adrener gic Trung Start: 04-28-2018 End: 01-22-2024 take 1 capsule by mouth once daily tamsulosin ER (FLOMAX) 0.4 mg cap Take 1 capsule by mouth once daily. 30 capsule 04/28/2018 Active traZODone hydrochloride 50 mg oral tablet (20 sources) Serotonin Reuptake Inhibitor Start: 02-22-2018 take 1 tablet by mouth once daily at bedtime Trazodone 50 mg Tablet Active 50 MG PO Daily at bedtime February 22, 2018 12:00am vitamin b12 1 mg oral tablet (20 sources) Vitamin B12 Start: 02-04-2024 End: 02-03-2024 take 1 tablet by mouth in the morning cyanocobalamin 1000 MCG tablet Take 1 tablet (1,000 mcg total) by mouth in the morning. 02/04/2024 02/03/2024 Discontinued (Stop Taking at Discharge) Start: 01-29-2024 End: 07-18-2024 take 1000 ug by mouth once daily 1,000 mcg, oral, Miah y, First dose on Mon01/29/24 at 1345 Completed/Discontinued Medications Medication Drug Class(es) Dates Sig (Normalized) Sig (Original) albuterol 0.83 mg/ml inhalation solution (20 sources) beta2-Adrenergic Agonist Start: 01-17-2024 End: 01-22-2024 take 2.5 mg by inhalation every six hours as needed for wheezing and dyspnea Start: 11-20-2018 Albuterol Sulf ate Active 1 PUFF INHALATION As Directed November 20, 2018 1:20pm Start: 11-20-2018 Albuterol Sulf ate Active 1 PUFF INHALATION As Directed November 19, 2018 11:00pm Start: 11-20-2018 Albuterol Sulf ate Active 1 PUFF INHALATION As Directed November 20, 2018 12:00am albuterol HFA (P ROVENTIL HFA, VENTOLIN HFA) 90 mcg/actuation inhaler Inhale 2 puffs as instructed. Active take 2 puff(s) by in halation every six hours as needed for wheezing albuterol (PROVENTIL HFA;VENTOLIN HFA) 90 mcg/actuation inhaler Inhale 2 puffs every 6 (six) hours as needed for wheezing. Active take 2 puff(s) by in halation every four hours albuterol HFA 90 mcg/act inhaler Inhale 2 puffs every 4 (four) hours if needed Active take 1 puff(s) by in halation every four hours as needed Ventolin HFA 108 (90 Base) MCG/ACT 1 puff as needed Inhalation every 4 hrs Active apixaban 5 mg oral tablet (5 sources) Factor Xa Inhibitor Start: 06-07-2024 End: 07-18-2024 take 2 tablets by mouth in the morning, then take 2 tablets by mouth at bedtime apixaban (ELIQUIS) 5 mg tablet Take 2 tablets (10 mg total) by mouth in the morning and 2 tablets (10 mg total) before bedtime. 14 tablet 06/07/2024 07/18/2024 Discontinued Bupivacaine (2 sources) Amide Local Anesthetic Start: 07-25-2024 End: 07-25-2024 5 mL, intra-articular, One-Time Injection, Starting on [facility] 07/25/24 at 1412, For 1 dose Start: 06-20-2024 End: 06-20-2024 5 mL, intra-articular, One-T ariela Injection, Starting on [facility] 06/20/24 at 1443, For 1 dose calcium chloride 0.0014 meq/ml / potassium chloride 0.004 meq/ml / sodium chloride 0.103 meq/ml / sodium lactate 0.028 meq/ml injectable solution (1 source) Start: 01-18-2024 End: 01-18-2024 take 2 mL intravenously every hour 50 mL/hr, intravenous, Continuous, Starting on [facility] 01/18/24 at 1015, Pre-op, If fluid restriction is not indicated, infuse at a rate up to 5 mL/kg/hr not to exceed the total replacement volume (2 ml/kg/hr) from the time NPO status was initiated. ceFAZolin (ANCEF) 2,000 mg in sodium chloride 0.9 % 50 mL IVPB-MBP (1 source) Start: 01-18-2024 End: 01-19-2024 take 2000 mg intravenously every eight hours 2,000 mg, intravenous, at 100 mL/hr, Administer over 30 Minutes, Every 8 hours, First dose (after last modification) on [facility] 01/18/24 at 2000, For 2 doses, Pharmacy to adjust per renal function; Start 8 hours after pre-op dose for total of 3 doses including pre-op dose. Infuse all doses within 24 hours of initial dose. For patient 120 kg or greater.. ADD-VANTAGE/MBP- Discard 24 hours after activating; dissolve drug prior to administration, Indication: Surgical prophylaxis cetirizine hydrochloride 10 mg oral tablet (8 sources) Histamine-1 Receptor Antagonist Start: 12-01-2023 End: 06-05-2024 Cetirizine 10 mg tablet Discontinued 10 MG PO December 01, 2023 12:00am June 05, 2024 1:35pm cholecalciferol 0.05 mg oral tablet (20 sources) Vitamin D Start: 03-12-2024 End: 07-18-2024 VITAMIN D3 50 mcg (2,000 unit) tablet Take 1 tablet (2,000 Units total) by mouth. 03/12/2024 07/18/2024 Discontinued Start: 01-29-2024 take 2000 [IU] by [facility] once daily 2,000 Units, oral, Daily, First dose on Mon01/29/24 at 1200 Start: 01-23-2024 End: 02-22-2024 take 1 tablet by mouth in the morning cholecalciferol, vitamin D3, 2,000 units tablet Take 1 tablet (2,000 Units total) by mouth in the morning for 30 days. 30 tablet 01/23/2024 02/22/2024 Active Start: 01-18-2024 End: 01-22-2024 take 2000 [IU] by mouth once daily 2,000 Units, oral, Daily, First dose on [facility] 01/18/24 at 1600 Start: 02-22-2018 End: 11-25-2024 take 1 capsule by mouth once daily Cholecalciferol (Vitamin D3) 1,000 unit Capsule Discontinued 1000 UNIT PO Daily February 22, 2018 12:00am May 02, 2019 3:15pm Cholecalciferol 1000 UNIT (20 sources) take 1 capsule by mo [facility] once daily Cholecalciferol 1000 UNIT 1 capsule Orally Once a day *please review for potential _update for e-prescription and drug interaction check* Not-Taking take 1 capsule by mouth once alejandra ly Cholecalciferol 1000 UNIT 1 capsule Orally Once a day *please review for potential _update for e-prescription and drug interaction check* Active colestipol hydrochloride 1000 mg oral tablet (20 sources) Bile Acid Sequestrant Start: 02-28-2024 End: 06-05-2024 take 2 tablets by mouth twice daily Colestipol 1 gram tablet Discontinued 2 GM PO Daily 180 90 February 28, 2024 12:00am June 05, 2024 1:35pm Take 2 tablets orally twice a day Start: 02-28-2024 End: 06-05-2024 take 2 tablets by mouth twice daily Colestipol Discontinued 2 GM PO Daily 180 90 February 28, 2024 12:00am June 05, 2024 1:35pm Take 2 tablets orally twice a day Start: 11-02-2023 End: 12-05-2024 take 2 tablets by mouth once daily Colestipol 1 gram tablet Active 2 GM PO Daily 180 90 December 05, 2024 1:46pm take 2 tablets orally once a day Start: 11-02-2023 take 2 tablets by [facility] once daily Colestipol Active 2 GM PO Daily 60 November 02, 2023 2:12pm take 2 tablets orally once a day Start: 11-02-2023 [facility] colestipoL (COLESTID) 1 g tablet Take 1 tablet (1 g total) by mouth in the morning. 11/02/2023 Active Start: 10-05-2023 End: 11-02-2023 take 2 tablets by mouth once daily Colestipol 1 gram tablet Discontinued 0 .ROUTE .COMPLEX 60 October 05, 2023 12:41pm November 02, 2023 2:14pm TAKE 2 TABLETS BY MOUTH EVERY DAY Start: 10-05-2023 End: 11-02-2023 take 2 tablets by mouth once daily Colestipol 1 gram tablet Discontinued 0 .ROUTE .COMPLEX 60 October 05, 2023 11:41am November 02, 2023 1:14pm TAKE 2 TABLETS BY MOUTH EVERY DAY Start: 10-05-2023 End: 11-02-2023 take 2 tablets by mouth once daily Colestipol Discontinued 0 .ROUTE .COMPLEX 60 October 05, 2023 12:41pm November 02, 2023 2:14pm TAKE 2 TABLETS BY MOUTH EVERY DAY Start: 10-05-2023 take 2 tablets by mo uth once daily Colestipol Active 0 .ROUTE .COMPLEX 60 October 05, 2023 12:41pm TAKE 2 TABLETS BY MOUTH EVERY DAY Start: 05-02-2019 End: 10-05-2023 Colestipol 1 gram tablet Discontinued 2 TAB PO Every morning May 02, 2019 12:00am October 05, 2023 12:41pm Start: 05-02-2019 End: 10-05-2023 take 2 tablets by mouth once daily in the morning Colestipol Discontinued 2 TAB PO Every morning May 02, 2019 12:00am October 05, 2023 12:41pm Start: 05-02-2019 take 2 tablets by mo uth every twenty-four hours Colestipol HCl 1 GM 2 tablets Orally Once a day for 30 days Sep, Active take 1 tablet by afua twice daily colestipol (COLESTID) 1 gram tablet Take 1 g by mouth two times a day. Active diazePAM 5 mg/ml injectable solution (1 source) Benzodiazepine Start: 01-17-2024 End: 01-17-2024 5 mg, intravenous, Once, On Mon01/17/24 at 1135, For 1 dose, Look-alike/sound-alike medication - verify indication for use., Indication: Other, Indication: muscle spasm from hip fracture dicyclomine hydrochloride 10 mg oral capsule (20 sources) Anticholinergic Start: 02-09-2024 End: 07-18-2024 take 1 capsule by mouth four times daily as needed for muscle spasms dicyclomine (BENTYL) 10 mg capsule Take 1 capsule (10 mg total) by mouth 4 (four) times a day as needed (Muscle spasm). 30 capsule 02/09/2024 07/18/2024 Discontinued Start: 03-21-2023 End: 02-28-2024 take 1 tablet by mouth three times daily Dicyclomine 20 mg tablet Discontinued 20 MG PO Three times daily March 21, 2023 12:00am February 28, 2024 1:25pm Start: 02-22-2018 End: 11-20-2018 take 1 capsule by mouth twice daily Dicyclomine 10 mg Capsule Discontinued 10 MG PO Twice daily February 22, 2018 12:00am November 20, 2018 1:25pm eluxadoline 100 mg oral tablet (20 sources) mu-Opioid Receptor Agonist Start: 11-20-2018 End: 12-05-2024 take 1 tablet by mouth twice daily at mealtime Eluxadoline (Viberzi) 100 mg tablet Discontinued MG PO December 01, 2023 12:00am February 28, 2024 1:06pm FreeTextSi tablet with food Oral Twice a day; Note: Source Status: Refill; Refills: 6; Qty: 60 Tablet; Provider: Norberto Mcgill Enoxaparin (20 sources) Low Molecular Weight Heparin Start: 02-28-2024 End: 06-05-2024 lovenox Discontinued SUBCUT February 27, 2024 11:00pm June 05, 2024 12:37pm Start: 02-28-2024 End: 06-05-2024 lovenox Discontinued SUBCUT February 28, 2024 12:00am June 05, 2024 1:37pm Start: 02-28-2024 lovenox Active SUBCUT February 28, 2024 12:00am Start: 01-30-2024 40 mg, subcuta neous, Daily, First dose on Mon01/30/24 at 0600, When Creatinine Clearance 30 mL/min or greater Look-alike/sound-alike medication - verify indication for use. Start: 01-23-2024 End: 03-07-2024 inject 0.4 mL by subcutaneous injection in the morning enoxaparin (LOVENOX) 40 mg/0.4 mL syringe Inject 0.4 mL (40 mg total) under the skin in the morning for 26 days. 10.4 mL 02/10/2024 03/07/2024 Active Start: 01-19-2024 End: 01-22-2024 40 mg, subcutaneous, Daily, First dose on Mon01/19/24 at 0600, When Creatinine Clearance 30 mL/min or greater Look-alike/sound-alike medication - verify indication for use. fenofibrate 134 mg oral capsule (20 sources) Peroxisome Proliferator Receptor alpha Agonist Start: 01-18-2024 End: 01-22-2024 take 134 mg by mouth once daily at breakfast 134 mg, oral, Daily with breakfast, First dose on Mon01/18/24 at 0800 Start: 02-22-2018 take 1 tablet by afua th once daily Fenofibrate 160 mg Tablet Active 160 MG PO Daily February 22, 2018 12:00am 1 ml fentaNYL 0.05 mg/ml injection (4 sources) Opioid Agonist Start: 01-30-2024 End: 01-30-2024 50 mcg, intravenous, Every 5 min PRN, Pain Scale 6-10, Starting on Mon01/30/24 at 1035, PACU (only), Up to a maximum dose of 150 mcg. Look-alike/sound-alike medication - verify indication for use. Start: 01-18-2024 End: 01-18-2024 50 mcg, intravenous, Every 5 min PRN, Pain Scale 6-10, Starting on Mon01/18/24 at 1330, PACU (only), Up to a maximum dose of 150 mcg. Look-alike/sound-alike medication - verify indication for use. Start: 01-18-2024 End: 01-18-2024 100 mcg, intravenous, Once, On Mon01/18/24 at 1145, For 1 dose, Pre-op, Look-alike/sound-alike medication - verify indication for use. Start: 01-18-2024 End: 01-18-2024 50 mcg, intravenous, Every 1 5 min PRN, pain scale 1-7, Starting on Mon01/18/24 at 1013, For 2 doses, Pre-op, Look-alike/sound-alike medication - verify indication for use. ferrous sulfate 325 mg oral tablet (20 sources) Start: 02-03-2024 End: 07-18-2024 take 1 tablet by mouth once daily at breakfast ferrous sulfate 325 (65 FE) mg tablet Take 1 tablet (325 mg total) by mouth daily with breakfast. 02/03/2024 07/18/2024 Discontinued ferumoxytoL (FERAHEME) 510 mg in sodium chloride 0.9 % 100 mL IVPB (1 source) Start: 01-29-2024 End: 01-29-2024 510 mg, intravenous, at 234 mL/hr, Administer over 30 Minutes, Once, On Mon01/29/24 at 1345, For 1 dose, Patient in reclined or semi-reclined position. Monitor for at least 30 min after infusion. AVOID the use of H1 antihistamines, such as diphenhydramine, as this may worsen hypersensitivity reactions., Indications: iron deficiency anemia 4 ml furosemide 10 mg/ml injection (1 source) Loop Diuretic Start: 02-01-2024 End: 02-01-2024 40 mg, intravenous, Once, On Mon02/01/24 at 1030, For 1 dose, Look-alike/sound-rajwinder e medication - verify indication for use. IVP rate = 20 mg/min 1 ml HYDROmorphone hydrochloride 1 mg/ml injection (12 sources) Opioid Agonist Start: 02-02-2024 End: 02-02-2024 1 mg, intravenous, Once, On Mon02/02/24 at 0945, For 1 dose, If IV push, administer over over 2 to 3 minutes. Look-alike/sound-rajwinder e medication - verify indication for use. Start: 01-30-2024 End: 01-30-2024 1 mg, intravenous, Once, On Mon01/30/24 at 2230, For 1 dose, If IV push, administer over over 2 to 3 minutes. Look-alike/sound-alike medication - verify indication for use. Start: 01-30-2024 take 1 mg intravenou sly every three hours as needed 1 mg, intravenous, Every 3 hours PRN, pain unresponsive to oral analgesic medication, breakthrough pain, or patients who are unable to take PO, Starting on Mon01/30/24 at 1237, If IV push, administer over over 2 to 3 minutes. Look-alike/sound-alike medication - verify indication for use. Start: 01-30-2024 End: 01-30-2024 1 mg, intravenous, Once, On Mon01/30/24 at 1200, For 1 dose, PACU (only), If IV push, administer over over 2 to 3 minutes. Look-alike/sound-alike medication - verify indication for use. Start: 01-30-2024 End: 01-30-2024 1 mg, intravenous, Once, On Mon01/30/24 at 1145, For 1 dose, PACU (only), If IV push, administer over over 2 to 3 minutes. Look-alike/sound-alike medication - verify indication for use. Start: 01-30-2024 End: 01-30-2024 0.4 mg, intravenous, Every 5 min PRN, for Pain Scale 6-10 if pain not controlled by fentanyl, Starting on Mon01/30/24 at 1035, PACU (only), Up to a maximum of 1.2 mg Look-alike/sound-alike medication - verify indication for use. Start: 01-30-2024 End: 01-30-2024 1 mg, intravenous, Once, On Mon01/30/24 at 0900, For 1 dose, Pre-op, If IV push, administer over over 2 to 3 minutes. Look-alike/sound-alike medication - verify indication for use. Start: 01-29-2024 End: 01-30-2024 take 1 mg intravenously every four hours as needed 1 mg, intravenous, Every 4 hours PRN, pain unresponsive to oral analgesic medication, breakthrough pain, or patients who are unable to take PO, Starting on Mon01/29/24 at 1151, If IV push, administer over over 2 to 3 minutes. Look-alike/sound-alike medication - verify indication for use. Start: 01-29-2024 End: 01-29-2024 Starting on Mon01/29/24 at 1 025, For 1 dose, Iván Reid: johnnie override Look-alike/sound-alike medication - verify indication for use. Start: 01-29-2024 End: 01-29-2024 1 mg, intravenous, Once, On Mon01/29/24 at 1015, For 1 dose, If IV push, administer over over 2 to 3 minutes. Look-alike/sound-alike medication - verify indication for use. Start: 01-18-2024 End: 01-18-2024 0.4 mg, intravenous, Every 5 min PRN, for Pain Scale 6-10 if pain not controlled by fentanyl, Starting on [place] 01/18/24 at 1330, PACU (only), Up to a maximum of 1.2 mg Look-alike/sound-alike medication - verify indication for use. Start: 01-17-2024 End: 01-22-2024 take 1 mg intravenously every two hours as needed for pain and pain 1 mg, intravenous, Every 2 hour PRN, severe pain - pain scale 7-10, moderate pain - pain scale 4-6, Starting on Mon01/17/24 at 1008, If IV push, administer over over 2 to 3 minutes. Look-alike/sound-alike medication - verify indication for use. hyoscyamine sulfate 0.125 mg oral tablet (20 sources) Start: 01-29-2024 take 125 ug by mouth four times daily 125 mcg, oral, 4 times daily, First dose on Mon01/29/24 at 1300 Start: 08-24-2023 End: 06-05-2024 hyoscyamine (LEVSIN) 0.125 m g tablet Take 0.125 mg by mouth. 12/01/2023 Active Start: 11-20-2018 End: 05-02-2019 take 1 tablet by mouth every twelve hours Hyoscyamine Sulfate 0.375 mg Tablet Extended Release 12 Hr Discontinued 0.375 MG PO Q12H November 20, 2018 12:00am May 02, 2019 3:18pm Insulin Degludec (Tresiba Flextouch U-100) 100 unit/mL (3 mL) insulin pen (12 sources) Start: 03-21-2023 End: 12-05-2024 Insulin Degludec (Tresiba Flextouch U-100) 100 unit/mL (3 mL) insulin pen Discontinued 28 UNIT SUBCUT Daily March 21, 2023 12:00am December 05, 2024 1:39pm Start: 03-21-2023 Insulin Deglud ec (Tresiba Flextouch U-100) 100 unit/mL (3 mL) insulin pen Active 28 UNIT SUBCUT Daily March 20, 2023 11:00pm Start: 03-21-2023 Insulin Deglud ec (Tresiba Flextouch U-100) 100 unit/mL (3 mL) insulin pen Active 28 UNIT SUBCUT Daily March 21, 2023 12:00am Insulin Glargine (Lantus U-100 Insulin) 100 unit/mL Solution (14 sources) Start: 02-22-2018 End: 03-21-2023 inject 45 [IU] by subcutaneous injection once daily at bedtime Insulin Glargine (Lantus U-100 Insulin) 100 unit/mL Solution Discontinued 45 UNIT SUBCUT Daily at bedtime February 21, 2018 11:00pm March 21, 2023 11:16am Start: 02-22-2018 End: 03-21-2023 inject 45 [IU] by subcutaneous injection once daily at bedtime Insulin Glargine (Lantus U-100 Insulin) 100 unit/mL Solution Discontinued 45 UNIT SUBCUT Daily at bedtime February 22, 2018 12:00am March 21, 2023 12:16pm Start: 02-22-2018 inject 45 [IU] by [place] bcutaneous injection once daily at bedtime Insulin Glargine (Lantus U-100 Insulin) 100 unit/mL Solution Active 45 UNIT SUBCUT Daily at bedtime February 21, 2018 11:00pm Start: 02-22-2018 inject 45 [IU] by [place] bcutaneous injection once daily at bedtime Insulin Glargine (Lantus U-100 Insulin) 100 unit/mL Solution Active 45 UNIT SUBCUT Daily at bedtime February 22, 2018 12:00am 3 ml insulin lispro 100 unt/ml pen injector (20 sources) Insulin Analog Start: 01-29-2024 End: 07-18-2024 insulin lispro (HumaLOG) 100 unit/mL insulin pen Inject 1-5 Units under the skin in the morning and 1-5 Units at noon and 1-5 Units in the evening. Inject with meals. 02/03/2024 07/18/2024 Discontinued Start: 01-29-2024 End: 02-03-2024 insulin lispro (HumaLOG) 100 unit/mL insulin pen Inject 1-5 Units under the skin in the morning and 1-5 Units at noon and 1-5 Units in the evening. Inject with meals. 02/03/2024 Active Start: 01-17-2024 End: 01-22-2024 inject 400 mg by subcutaneous injection once daily, then inject 2 [IU] by subcutaneous injection 15 minutes after mealtime 1-4 Units, subcutaneous, Nightly, First dose on Mon01/17/24 at 2200, Bedtime hyperglycemia dosing. For blood glucose 201-250 mg/dL, give 1 unit. For blood glucose 251-300 mg/dL, give 2 units. For blood glucose 301-350 mg/dL, give 3 units. For blood glucose 351-400 mg/dL, give 4 units. Give even if NPO or meals skipped. Do NOT give more often than every 4 hours when NPO. Notify prescriber if blood glucose greater than 400 mg/dL. Look-alike/sound-alike medication - verify indication for use. Prime with 2 units of insulin prior to administration. Prandial/supplemental Insulin. Pre-filled pens stable 28 days at room temperature. Insulin lispro should be administered within 15 minutes before or immediately after a meal. Start: 01-17-2024 End: 01-22-2024 inject 400 mg by subcutaneous injection three times daily at mealtime, then inject 2 [IU] by subcutaneous injection 15 minutes after mealtime 1-5 Units, subcutaneous, 3 times daily with meals, First dose on Mon01/17/24 at 1400, Daytime hyperglycemia dosing. For blood glucose 151-200 mg/dL, give 1 unit. For blood glucose 201-250 mg/dL, give 2 units. For blood glucose 251-300 mg/dL, give 3 units. For blood glucose 301-350 mg/dL, give 4 units. For blood glucose 351-400 mg/dL, give 5 units. Give even if NPO or meals skipped. Do NOT give more often than every 4 hours when NPO. Notify prescriber if blood glucose greater than 400 mg/dL. Look-alike/sound-alike medication - verify indication for use. Prime with 2 units of insulin prior to administration. Prandial/supplemental Insulin. Pre-filled pens stable 28 days at room temperature. Insulin lispro should be administered within 15 minutes before or immediately after a meal. Start: 10-08-2018 HUMALOG KWIKPE N INSULIN 100 unit/mL insulin pen Inject 18 Units under the skin 3 (three) times a day with meals. 0 10/08/2018 Active Start: 02-22-2018 HUMALOG KWIKPE N INSULIN 100 unit/mL insulin pen Inject 18 Units under the skin in the morning and 18 Units at noon and 18 Units in the evening. Inject with meals. 0 10/08/2018 Insulin Lispro (Humalog Kwikpen Insulin) 100 unit/mL Insulin Pen (12 sources) Start: 02-22-2018 End: 02-28-2024 Insulin Lispro (Humalog Kwik pen Insulin) 100 unit/mL Insulin Pen Discontinued 18 UNIT SUBCUT As Directed February 21, 2018 11:00pm February 28, 2024 12:07pm Start: 02-22-2018 End: 02-28-2024 Insulin Lispro (Humalog Kwik pen Insulin) 100 unit/mL Insulin Pen Discontinued 18 UNIT SUBCUT As Directed February 22, 2018 12:00am February 28, 2024 1:07pm Start: 02-22-2018 Insulin Lispro (Humalog Kwikpen Insulin) 100 unit/mL Insulin Pen Active 18 UNIT SUBCUT As Directed February 21, 2018 11:00pm Start: 02-22-2018 Insulin Lispro (Humalog Kwikpen Insulin) 100 unit/mL Insulin Pen Active 18 UNIT SUBCUT As Directed February 22, 2018 12:00am levoFLOXacin 500 mg oral tablet (16 sources) Quinolone Antimicrobial Start: 11-12-2018 End: 05-02-2019 take 1 tablet by mouth once daily Levofloxacin (Levaquin) 500 mg Tablet Discontinued 500 MG PO Daily November 12, 2018 12:00am May 02, 2019 3:18pm lidocaine 0.05 mg/mg medicated patch (20 sources) Antiarrhythmic, Amide Local Anesthetic Start: 02-09-2024 End: 07-18-2024 apply 1 dose transdermal route every twelve hours in the morning lidocaine (LIDODERM) 5 % Indications: Closed fracture of right hip, initial encounter ([facility]) Place 1 patch on the skin in the morning. Remove & Discard patch within 12 hours or as directed by 30 patch 02/09/2024 07/18/2024 Discontinued Start: 01-17-2024 End: 01-22-2024 apply 1 dose transdermal route once daily, then apply 1 dose transdermal route every twelve hours 1 patch, transdermal, Administer over 12 Hours, Daily, First dose on Mon01/17/24 at 2000, Apply to intact skin at site of low back pain. Patch(es) may remain in place for up to 12 hours in any 24-hour period. Remove previous patch, if present, before applying new. Lidocaine 5 % AP PLY 1 PATCH TOPICALLY TO THE SKIN EVERY DAY. LEAVE ON FOR 12 HOURS THEN OFF FOR 12 HOURS for 90 Active lisinopril 20 mg oral tablet (18 sources) Angiotensin Converting Enzyme Inhibitor Start: 05-02-2019 End: 08-03-2022 take 1 tablet by mouth once daily at bedtime Lisinopril 20 mg tablet Discontinued 20 MG PO Daily at bedtime May 02, 2019 12:00am August 03, 2022 11:50am End: 01-17-2024 take 1 tablet by mouth in the morning lisinopriL (PRINIVIL,ZESTRIL) 40 mg tablet Indications: hypertension Take 1 tablet (40 mg total) by mouth in the morning. Indications: high blood pressure. 01/17/2024 Discontinued (Discontinued by another clinician) loperamide hydrochloride 2 mg oral tablet (20 sources) Opioid Agonist Start: 09-26-2023 End: 02-28-2024 take 1 tablet by mouth three times daily as needed for diarrhea Loperamide (Imodium A-D) 2 mg tablet Discontinued 2 MG PO Three times daily as needed for as needed for diarrhea 90 September 26, 2023 1:00am February 28, 2024 1:08pm Start: 11-20-2018 End: 11-25-2024 Loperamide 2 mg capsule Disc ontinued 2 MG PO As Directed as needed for Diarrhea November 20, 2018 12:00am May 02, 2019 3:19pm 50 ml magnesium sulfate 40 mg/ml injection (2 sources) Start: 01-17-2024 End: 01-22-2024 2,000 mg, intravenous, at 25 mL/hr, Administer over 120 Minutes, As needed, Magnesium level 1.7 to 1.9 mg/dL, or Ionized Magnesium level 0.45 to 0.5 mmol/L., Starting on Mon01/17/24 at 1111, Recheck magnesium level 4 hours after infusion complete. With each magnesium result continue the replacement orders as needed. Start: 01-17-2024 End: 01-22-2024 4,000 mg, intravenous, at 25 mL/hr, Administer over 240 Minutes, As needed, Magnesium level 1.6 mg/dL or less, or Ionized Magnesium level 0.44 mmol/L or less, Starting on Mon01/17/24 at 1111, Recheck magnesium level 4 hours after infusion complete. With each magnesium result continue the replacement orders as needed. melatonin 3 mg oral tablet (1 source) Start: 01-17-2024 End: 01-22-2024 meloxicam 15 mg oral tablet (20 sources) Nonsteroidal Anti-inflammatory Drug Start: 05-02-2019 End: 11-25-2024 take 1 tablet by mouth once daily as needed for pain Meloxicam 15 mg tablet Discontinued 15 MG PO Daily as needed for Pain March 21, 2023 12:00am February 28, 2024 1:08pm methocarbamol 500 mg oral tablet (20 sources) Muscle Relaxant Start: 02-09-2024 End: 07-18-2024 take 1 tablet by mouth once daily methocarbamoL (ROBAXIN) 500 mg tablet Take 1 tablet (500 mg total) by mouth nightly. 30 tablet 02/09/2024 07/18/2024 Discontinued metoprolol tartrate 50 mg oral tablet (20 sources) beta-Adrenergic Trung Start: 11-20-2018 End: 03-21-2023 take 1 tablet by mouth twice daily Metoprolol Tartrate 50 mg tablet Discontinued 50 MG PO Twice daily November 20, 2018 12:00am March 21, 2023 1:02pm Start: 02-22-2018 End: 11-20-2018 take 1 tablet by mouth twice daily Metoprolol Tartrate 25 mg Tablet Discontinued 25 MG PO Twice daily February 22, 2018 12:00am November 20, 2018 1:16pm End: 11-25-2024 take 1 tablet by mouth twice daily metoprolol succinate ER (TOPROL XL) 50 mg 24 hr tablet Indications: Malignant neoplasm of descending colon (HCC) Take 50 mg by mouth twice daily. 11/25/2024 Discontinued End: 01-17-2024 take 1 tablet by mouth every twenty-four hours in the morning, then take 1 tablet by mouth at bedtime metoprolol succinate XL (TOPROL-XL) 50 mg 24 hr tablet Take 1 tablet (50 mg total) by mouth in the morning and 1 tablet (50 mg total) before bedtime. 01/17/2024 Discontinued (Discontinued by another clinician) 2 ml midazolam 1 mg/ml cartridge (1 source) Benzodiazepine Start: 01-18-2024 End: 06-06-2024 2 mg, intravenous, As needed, anxiety, Starting on Mon01/18/24 at 1002, Pre-op, Indication: Other, Indication: anxiety Multivitamin preparation (13 sources) Start: 02-22-2018 End: 11-20-2018 take 1 tablet by mouth once daily Multivitamin Discontinued 1 TAB PO Daily February 22, 2018 8:55am November 20, 2018 1:25pm Start: 02-22-2018 End: 11-20-2018 take 1 tablet by mouth once daily Multivitamin Discontinued 1 TAB PO Daily February 21, 2018 11:00pm November 20, 2018 12:25pm Start: 02-22-2018 End: 11-20-2018 take 1 tablet by mouth once daily Multivitamin Discontinued 1 TAB PO Daily February 22, 2018 12:00am November 20, 2018 1:25pm Multivitamin Tablet (3 sources) Start: 02-22-2018 End: 11-20-2018 take 1 tablet by mouth once daily Multivitamin Tablet Discontinued 1 TAB PO Daily February 22, 2018 12:00am November 20, 2018 1:25pm Start: 02-22-2018 End: 11-20-2018 take 1 tablet by mouth once daily Multivitamin Tablet Discontinued 1 TAB PO Daily February 21, 2018 11:00pm November 20, 2018 12:25pm 1 ml naloxone hydrochloride 0.4 mg/ml injection (20 sources) Opioid Antagonist Start: 02-03-2024 End: 07-18-2024 naloxone (NARCAN) 0.4 mg/mL injection Infuse 0.5 mL (0.2 mg total) into a venous catheter as needed for respiratory depression or opioid reversal. 02/03/2024 07/18/2024 Discontinued Start: 01-30-2024 0.2 mg, intrav enous, As needed, respiratory depression, opioid reversal, Starting on Mon01/30/24 at 2216, Look-alike/sound-alike medication - verify indication for use. 24 hr nicotine 0.292 mg/hr transdermal system (20 sources) Cholinergic Nicotinic Agonist Start: 02-10-2024 End: 07-18-2024 nicotine (NICODERM CQ) 7 mg/[address] 1 patch on the skin in the morning. 30 patch 02/10/2024 07/18/2024 Discontinued Start: 02-10-2024 nicotine (BROOKLYNN DERM CQ) 7 mg/[address] 1 patch on the skin in the morning. 30 patch 02/10/2024 Active Start: 01-17-2024 End: 01-22-2024 apply 1 dose transdermal route once daily 1 patch, transdermal, Administer over 24 Hours, Daily, First dose on Mon01/17/24 at 1225, Remove patch prior to MRI procedure as serious coleman may occur- patch may be reapplied. Remove previous patch, if present, before applying new. ondansetron 4 mg disintegrating oral tablet (20 sources) Serotonin-3 Receptor Antagonist Start: 01-29-2024 take 4 mg intravenously every four hours as needed for nausea Start: 01-17-2024 End: 01-22-2024 take 4 mg intravenously every four hours as needed for nausea Start: 06-13-2023 Ondansetron HC l 4 MG 1 Orally twice a day as needed for 30 days May, Active Start: 12-24-2021 take 1 tablet by afua th every eight hours as needed Ondansetron HCl 8 MG 1 TABLET Orally EVERY 8 HRS NEEDED for 30 days December, Active Start: 05-02-2019 End: 11-26-2024 take 1 tablet by mouth twice daily as needed for nausea Ondansetron 4 mg tablet,disintegrating Discontinued 4 MG PO Twice daily as needed for Nausea 60 June 05, 2024 1:51pm November 26, 2024 8:57am take 1 tablet orally twice a day as needed. Start: 11-12-2018 End: 05-02-2019 Ondansetron 4 mg Tablet,Disintegrating Discontinued 4 MG PO every 6 to 8 hours as needed for Nausea November 12, 2018 12:00am May 02, 2019 3:22pm oxyCODONE hydrochloride 5 mg oral tablet (20 sources) Opioid Agonist Start: 03-18-2024 End: 07-18-2024 take 1 tablet by mouth once oxyCODONE (ROXICODONE) 5 mg immediate release tablet Indications: Closed fracture of right hip, initial encounter ([facility]) Take 1 tablet (5 mg total) by mouth every 12 (twelve) hours as needed for pain. Take 1 tablet (5mg) oxycodone every 5-6 hours PRN pain Max Daily Amount: 10 mg 14 tablet 03/18/2024 07/18/2024 Discontinued Start: 03-11-2024 End: 03-18-2024 take 1 tablet by mouth every eight hours as needed for pain oxyCODONE (ROXICODONE) 5 mg immediate release tablet Indications: Closed fracture of right hip, initial encounter ([facility]) Take 1 tablet (5 mg total) by mouth every 8 (eight) hours as needed for pain. Take 1 tablet (5mg) oxycodone every 5-6 hours PRN pain Max Daily Amount: 15 mg 21 tablet 03/11/2024 03/18/2024 Discontinued (Reorder) Start: 02-25-2024 End: 02-26-2024 oxyCODONE (ROXICODONE) 5 mg immediate release tablet Indications: Closed fracture of right hip, initial encounter ([facility]) Take 1 tablet (5mg) oxycodone every 5-6 hours PRN pain 7 tablet 02/26/2024 Active Start: 02-25-2024 oxyCODONE (ROSALINDA ICODONE) 5 mg immediate release tablet Indications: Closed fracture of right hip, initial encounter ([facility]) Take 1 tablet (5mg) oxycodone every 5-6 hours PRN pain 32 tablet 02/25/2024 Active Start: 02-09-2024 End: 02-26-2024 take 1 tablet by mouth every six hours as needed for pain oxyCODONE (ROXICODONE) 5 mg immediate release tablet Indications: Closed fracture of right hip, initial encounter ([facility]) Take 1 tablet (5 mg total) by mouth every 6 (six) hours as needed for pain for up to 7 days. Max Daily Amount: 20 mg 28 tablet 02/19/2024 02/23/2024 Discontinued (Reorder) Start: 02-03-2024 End: 02-08-2024 take 1 tablet by mouth every three hours as needed for pain oxyCODONE (ROXICODONE) 10 MG tablet immediate release tablet Indications: Periprosthetic fracture of hip, subsequent encounter Take 1 tablet (10 mg total) by mouth every 3 (three) hours as needed for pain (Severe pain Pain scale 7-10. For sedation or respiratory rate less than 12 per minute) for up to 5 days. Max Daily Amount: 80 mg 02/03/2024 02/08/2024 Active Start: 02-02-2024 take 1 tablet by afua th every three hours as needed for pain 10 mg, oral, Every 3 hours PRN, severe pain - pain scale 7-10, Starting on Mon02/02/24 at 1151, For patients less than 75 years of age Recommend minimized narcotics, while still providing adequate analgesia, to minimize risk of sedation and delirium. The oral route is preferred for patients tolerating oral intake without nausea and vomiting. Use IV pain medications if the oral route is ineffective for symptom control, or if patient unable to take medications orally. Look-alike/sound-alike medication - verify indication for use. Immediate release. Start: 02-02-2024 End: 02-08-2024 take 1 tablet by mouth every three hours as needed for pain oxyCODONE (ROXICODONE) 5 mg immediate release tablet Indications: Periprosthetic fracture of hip, subsequent encounter Take 1 tablet (5 mg total) by mouth every 3 (three) hours as needed (mild to moderate pain - pain scale 1-6) for up to 5 days. Max Daily Amount: 40 mg 02/03/2024 02/08/2024 Active Start: 01-29-2024 End: 02-02-2024 take 1 tablet by mouth every four hours as needed for pain 10 mg, oral, Every 4 hours PRN, severe pain - pain scale 7-10, Starting on Mon01/29/24 at 1151, For patients less than 75 years of age Recommend minimized narcotics, while still providing adequate analgesia, to minimize risk of sedation and delirium. The oral route is preferred for patients tolerating oral intake without nausea and vomiting. Use IV pain medications if the oral route is ineffective for symptom control, or if patient unable to take medications orally. Look-alike/sound-alike medication - verify indication for use. Immediate release. Start: 01-19-2024 End: 01-22-2024 take 1 tablet by mouth every three hours as needed for pain 5 mg, oral, Every 3 hours PRN, moderate pain - pain scale 4-6, Starting on Mon01/19/24 at 1010, For patients less than 75 years of age Recommend minimized narcotics, while still providing adequate analgesia, to minimize risk of sedation and delirium. The oral route is preferred for patients tolerating oral intake without nausea and vomiting. Use IV pain medications if the oral route is ineffective for symptom control, or if patient unable to take medications orally. Look-alike/sound-alike medication - verify indication for use. Immediate release. Start: 01-19-2024 End: 01-22-2024 take 1 tablet by mouth every three hours as needed for pain 10 mg, oral, Every 3 hours PRN, severe pain - pain scale 7-10, Starting on Mon01/19/24 at 1010, For patients less than 75 years of age Recommend minimized narcotics, while still providing adequate analgesia, to minimize risk of sedation and delirium. The oral route is preferred for patients tolerating oral intake without nausea and vomiting. Use IV pain medications if the oral route is ineffective for symptom control, or if patient unable to take medications orally. Look-alike/sound-alike medication - verify indication for use. Immediate release. Start: 01-17-2024 End: 01-19-2024 take 1 tablet by mouth every four hours as needed for pain 10 mg, oral, Every 4 hours PRN, severe pain - pain scale 7-10, Starting on Mon01/17/24 at 1714, For patients less than 75 years of age Recommend minimized narcotics, while still providing adequate analgesia, to minimize risk of sedation and delirium. The oral route is preferred for patients tolerating oral intake without nausea and vomiting. Use IV pain medications if the oral route is ineffective for symptom control, or if patient unable to take medications orally. Look-alike/sound-alike medication - verify indication for use. Immediate release. Start: 02-22-2018 End: 11-25-2024 take 1 tablet by mouth three times daily Oxycodone 10 mg Tablet Discontinued 10 MG PO Three times daily February 22, 2018 12:00am June 14, 2019 3:12pm pantoprazole 40 mg delayed release oral tablet (20 sources) Proton Pump Inhibitor Start: 11-20-2018 End: 02-28-2024 take 1 tablet by mouth twice daily Pantoprazole 40 mg tablet,delayed release (DR/EC) Discontinued 40 MG PO Twice daily November 20, 2018 12:00am February 28, 2024 1:21pm Start: 11-20-2018 End: 11-25-2024 40 mg, oral, Daily, First do se on Mon01/30/24 at 0600, Look-alike/sound-alike medication - verify indication for use. If patient is receiving enteral feeding, consider alternative PPI or continue IV pantoprazole until the delayed-release tablet can be taken orally, Indication: Peptic Ulcer Disease (PUD) polyethylene glycol 3350 44206 mg powder for oral solution (3 sources) Osmotic Laxative Start: 11-03-2021 End: 01-22-2024 17 g, oral, 2 times daily, First dose on Mon01/17/24 at 2100, Look-alike/sound-alike medication - verify indication for use. Dissolve 1 packet (17 gm) in 8 ounces of water, juice, soda, coffee or tea. Potassium Chloride (20 sources) Start: 01-17-2024 End: 01-22-2024 potassium chloride (K-TAB,KLOR-CON) CR tablet 30-50 mEq Start: 02-22-2018 End: 11-20-2018 take 1 tablet by mouth twice daily Potassium Chloride 20 mEq Tablet Extended Release Discontinued 20 MEQ PO Twice daily February 22, 2018 12:00am November 20, 2018 1:25pm prasterone 50 mg oral tablet (19 sources) Start: 02-22-2018 End: 11-25-2024 take 1 tablet by mouth once daily Prasterone (Dhea) 50 mg Tablet Discontinued 50 MG PO Daily February 22, 2018 12:00am August 03, 2022 11:50am rifAXIMin 550 mg oral tablet (20 sources) Rifamycin Antibacterial Start: 12-01-2023 End: 06-05-2024 take 550 mg by mouth every twelve hours 550 mg, oral, Every 12 hours scheduled, First dose on Mon01/29/24 at 1200, Look-alike/sound-a like medication - verify indication for use. Start: 08-10-2023 End: 12-05-2024 take 1 tablet by mouth twice daily Rifaximin (Xifaxan) 550 mg tablet Discontinued 550 MG PO Twice daily June 05, 2024 1:37pm December 05, 2024 1:49pm 72 hr scopolamine 0.0139 mg/hr transdermal system (1 source) Anticholinergic Start: 01-18-2024 End: 01-18-2024 1 patch, transdermal, Administer over 48 Hours, Once, On [place] 01/18/24 at 1015, For 1 dose, Pre-op, Patches are applied behind ear. Remove previous patch, before applying new. Remove patch prior to MRI procedure as serious coleman may occur. A new patch must be reapplied to an alternate site. 1000 ml sodium chloride 9 mg/ml injection (3 sources) Start: 01-29-2024 End: 01-30-2024 take 50 mL intravenously every hour 50 mL/hr, intravenous, Continuous, Starting on Mon01/29/24 at 2045, For 15 hours Start: 01-29-2024 3 mL, intraven ous, As needed, line care, before and after each intermittent use, Starting on Mon01/29/24 at 1013 Start: 01-17-2024 End: 01-17-2024 take 250 mL intravenously every hour 250 mL/hr, intravenous, Continuous, Starting on Mon01/17/24 at 1010, For 4 hours sofosbuvir 400 mg / velpatasvir 100 mg oral tablet (16 sources) Hepatitis C Virus NS5A Inhibitor, Hepatitis C Virus Nucleotide Analog NS5B Polymerase Inhibitor Start: 11-20-2018 End: 05-02-2019 take 1 tablet by mouth once daily Sofosbuvir-Velpatasvir 400-100 mg tablet Discontinued 1 TAB PO Daily November 20, 2018 12:00am May 02, 2019 3:23pm thiamine 100 mg oral tablet (20 sources) Start: 02-10-2024 End: 07-18-2024 take 1 tablet by mouth in the morning thiamine mononitrate, vit B1, (VITAMIN B-1) 100 mg tablet Take 1 tablet (100 mg total) by mouth in the morning. 30 tablet 02/10/2024 07/18/2024 Discontinued Start: 02-10-2024 take 1 tablet by afua th in the morning thiamine mononitrate, vit B1, (VITAMIN B-1) 100 mg tablet Take 1 tablet (100 mg total) by mouth in the morning. 30 tablet 02/10/2024 Active Start: 02-09-2024 End: 07-18-2024 take 1 tablet by mouth in the morning thiamine HCl (VITAMIN B-1) 100 mg tablet Take 1 tablet (100 mg total) by mouth in the morning. 02/09/2024 07/18/2024 Discontinued 1 ml triamcinolone acetonide 40 mg/ml injection (2 sources) Corticosteroid Start: 07-25-2024 End: 07-25-2024 40 mg, intra-articular, One-Time Injection, Starting on Mon07/25/24 at 1412, For 1 dose Start: 06-20-2024 End: 06-20-2024 40 mg, intra-articular, One- Time Injection, Starting on Mon06/20/24 at 1443, For 1 dose vancomycin (VANCOCIN) 1,500 mg in sodium chloride 0.9 % 500 mL IVPB-MBP (1 source) Start: 01-30-2024 End: 01-30-2024 1,500 mg, intravenous, at 33 3 mL/hr, Administer over 90 Minutes, Once, On Mon01/30/24 at 0900, For 1 dose, Pre-op, Initiate within 90 minutes prior to incision; for weight 100 kg or greater. VESICANT (YELLOW) ADD-VANTAGE/MBP- Discard 24 hours after activating; dissolve drug prior to administration, Indication: Surgical prophylaxis vancomycin (VANCOCIN) IVPB 1750 mg in 500 mL sodium chloride 0.9% (CMPD premix) (1 source) Start: 01-30-2024 End: 01-31-2024 1,750 mg (rounded from 1,714 .5 mg = 15 mg/kg 114.3 kg), intravenous, at 268 mL/hr, Administer over 120 Minutes, Every 12 hours, First dose on Mon01/30/24 at 2245, For 1 dose, Pharmacy to adjust per renal function; Administer 12 hours after pre-op dose for total of 2 doses including pre-op dose. VESICANT (YELLOW), Indication: Surgical prophylaxis Problems Active Problems Problem Classification Problem Date Documented Da te Episodic/Chronic Abdominal hernia (20 sources) Right inguinal hernia ; Translations: [Unilateral inguinal hernia, without obstruction or gangrene, not specified as recurrent] Onset: 2 Resolved: 2 Episodic Abdominal pain (20 sources) Abdominal pain; Translations: [Unspecified abdominal pain] Onset: 2 Resolved: 2 Episodic Comment on above: Problem List clean-u p per request of Phys. EHR Cmte Anxiety disorders (2 sources) Anxiety; Translations: [Anxiety disorder, unspecified] Onset: 4 07-18-2024 Chronic Cancer of colon (20 sources) Malignant neoplasm of colon, unspecified; Translations: [Malignant tumor of descending colon] Onset: 8 04-26-2018 Chronic Cancer of colon (20 sources) History of malignant neoplasm of colon; Translations: [Personal history of other malignant neoplasm of large intestine] Onset: 2 Resolved: 2 Episodic Comment on above: Problem List clean-u p per request of Phys. EHR Cmte Chronic obstructive pulmonary disease and bronchiectasis (4 sources) Bronchitis, not specified as acute or chronic; Translations: [BRONCHITIS NOT SPEC ACUTE/CHRON] Onset: 0 Episodic Coagulation and hemorrhagic disorders (10 sources) Thrombocytopenic disorder; Translations: [Thrombocytopenia, unspecified] Onset: 5 11-25-2024 Chronic Diabetes mellitus with complications (20 sources) Polyneuropathy due to diabetes mellitus; Translations: [Type 2 diabetes mellitus with diabetic polyneuropathy] Onset: 4 02-03-2024 Chronic Diabetes mellitus without complication (8 sources) Diabetes mellitus; Translations: [Type 2 diabetes mellitus without complications] 04-06-2018 Chronic Disorders of lipid metabolism (20 sources) Mixed hyperlipidemia; Translations: [Mixed hyperlipidemia] Onset: 4 02-03-2024 Chronic E Codes: Fall (2 sources) Fall Onset: 4 Esophageal disorders (20 sources) Gastroesophageal reflux disease; Translations: [Gastro-esophageal reflux disease without esophagitis] Onset: 4 Chronic Essential hypertension (20 sources) Essential (primary) hypertension; Translations: [Essential hypertension] Onset: 4 02-03-2024 Chronic Genitourinary symptoms and ill-defined conditions (4 sources) Difficulty passing urine; Translations: [Other difficulties with micturition] Onset: 5 12-04-2024 Episodic Hepatitis (20 sources) Chronic hepatitis C; Translations: [Chronic viral hepatitis C] Chronic Hepatitis (20 sources) Viral hepatitis C; Translations: [Unspecified viral hepatitis C without hepatic coma] Episodic Hyperplasia of prostate (20 sources) Benign prostatic hyperplasia with lower urinary tract symptoms; Translations: [Benign prostatic hyperplasia] Onset: 4 02-03-2024 Chronic Immunizations and screening for infectious disease (1 source) Contact with and (suspected) exposure to other viral communicable diseases; Translations: [CONTCT EXPS OTH VIRL COMMUNICABL DZ] Onset: 0 Episodic Mood disorders (20 sources) Depressive disorder; Translations: [Depression] Onset: 4 02-03-2024 Chronic Nausea and vomiting (20 sources) Nausea and vomiting; Translations: [Nausea with vomiting, unspecified] Episodic Noninfectious gastroenteritis (20 sources) Colitis; Translations: [Noninfective gastroenteritis and colitis, unspecified] Episodic Osteoarthritis (6 sources) Bilateral arthropathy of joint of shoulder regions; Translations: [Primary osteoarthritis, right shoulder] 12-01-2023 Chronic Other connective tissue disease (1 source) Presence of unspecified artificial hip joint; Translations: [Presence of unspecified artificial hip joint] Onset: 4 Chronic Other connective tissue disease (7 sources) History of total replacement of right hip joint; Translations: [Presence of right artificial hip joint] Onset: 5 11-25-2024 Chronic Other connective tissue disease (4 sources) Pain of bilateral hands; Translations: [Pain in right hand] 09-04-2024 Episodic Other disorders of stomach and duodenum (1 source) Disorder of function of stomach; Translations: [Dyspepsia and disorder of function of stomach] Chronic Other disorders of stomach and duodenum (15 sources) Disorder of function of stomach; Translations: [Disease of stomach and duodenum, unspecified] 02-22-2018 Episodic Comment on above: Problem List clean-u p per request of Phys. EHR Cmte Other fractures (20 sources) Collapse of lumbar vertebra; Translations: [Collapsed vertebra, not elsewhere classified, lumbar region, subsequent encounter for fracture with routine healing] Episodic Other gastrointestinal disorders (20 sources) Irritable bowel syndrome with diarrhea; Translations: [Irritable bowel syndrome with diarrhea] Onset: 4 06-05-2024 Chronic Other gastrointestinal disorders (9 sources) Irritable bowel syndrome with diarrhea; Translations: [Irritable bowel syndrome] Onset: 2 Resolved: 2 Chronic Other gastrointestinal disorders (5 sources) Irritable bowel syndrome; Translations: [Irritable bowel syndrome without diarrhea] 02-28-2024 Chronic Other gastrointestinal disorders (1 source) Irritable bowel syndrome without diarrhea; Translations: [Irritable bowel syndrome] 02-28-2024 Chronic Other gastrointestinal disorders (3 sources) Loose stool; Translations: [Other fecal abnormalities] Episodic Other gastrointestinal disorders (3 sources) Flatulence; Translations: [Gas] Episodic Other gastrointestinal disorders (8 sources) Diarrhea; Translations: [Diarrhea, unspecified] 09-26-2023 Episodic Other gastrointestinal disorders (1 source) Diarrhea, unspecified; Translations: [Diarrhea] 02-28-2024 Episodic Other liver diseases (20 sources) Cirrhosis of liver; Translations: [Unspecified cirrhosis of liver] 02-28-2024 Chronic Other liver diseases (1 source) Other cirrhosis of liver Onset: 2 Resolved: 2 Chronic Other liver diseases (8 sources) Unspecified cirrhosis of liver; Translations: [Cirrhosis of liver without mention of alcohol] Onset: 4 Chronic Other liver diseases (4 sources) Hepatic encephalopathy; Translations: [Hepatic encephalopathy] 12-05-2024 Episodic Other nervous system disorders (20 sources) Chronic pain; Translations: [Other chronic pain] Chronic Other nervous system disorders (20 sources) Idiopathic peripheral neuropathy; Translations: [Hereditary and idiopathic neuropathy, unspecified] Chronic Other nervous system disorders (2 sources) Hereditary and idiopathic neuropathy, unspecified Onset: 2 Resolved: 2 Chronic Other nervous system disorders (5 sources) Peripheral nerve disease ; Translations: [Polyneuropathy, unspecified] Chronic Other nervous system disorders (3 sources) Polyneuropathy, unspecified Onset: 2 Resolved: 2 Chronic Other nervous system disorders (9 sources) Other chronic pain; Translations: [Other chronic pain] Onset: 2 Resolved: 2 Chronic Other nervous system disorders (20 sources) Neuropathy; Translations: [Polyneuropathy, unspecified] Chronic Other nervous system disorders (1 source) Difficulty in walking, not elsewhere classified; Translations: [Difficulty in walking, not elsewhere classified] Onset: 4 Chronic Other nervous system disorders (20 sources) Walking disability; Translations: [Difficulty in walking, not elsewhere classified] Onset: 4 02-03-2024 Chronic Other nervous system disorders (1 source) Left cervical root neuropathy 07-18-2024 Chronic Other nervous system disorders (20 sources) Numbness of lower limb ; Translations: [Anesthesia of skin] Episodic Other nervous system disorders (1 source) Paresthesia; Translations: [Paresthesia of skin] 08-05-2024 Episodic Other nervous system disorders (2 sources) Numbness of hand; Translations: [Anesthesia of skin] 07-18-2024 Episodic Other nutritional; endocrine; and metabolic disorders (20 sources) Body mass index 30+ - obesity; Translations: [Body mass index (BMI) 34.0-34.9, adult] Chronic Other nutritional; endocrine; and metabolic disorders (20 sources) Obese class I; Translations: [Body mass index (BMI) 33.0-33.9, adult] Chronic Other nutritional; endocrine; and metabolic disorders (20 sources) Obesity caused by energy imbalance; Translations: [Class 1 obesity due to excess calories with serious comorbidity and body mass index (BMI) of 31.0 to 31.9 in adult] Onset: 4 02-03-2024 Chronic Other nutritional; endocrine; and metabolic disorders (20 sources) Hypomagnesemia; Translations: [Hypomagnesemia] Onset: 4 02-03-2024 Chronic Other nutritional; endocrine; and metabolic disorders (1 source) Hypomagnesemia; Translations: [Hypomagnesemia] Onset: 4 Chronic Residual codes; unclassified (16 sources) Family history of polyp of colon; Translations: [Family history of colonic polyps] 02-22-2018 Episodic Comment on above: Problem List clean-u p per request of Phys. EHR Cmte Residual codes; unclassified (4 sources) History of operative procedure on lumbar spinal structure; Translations: [Other specified postprocedural states] 09-04-2024 Episodic Residual codes; unclassified (2 sources) Other specified postprocedural states; Translations: [Other specified postprocedural states] Onset: 4 Episodic Spondylosis; intervertebral disc disorders; other back problems (20 sources) Degeneration of lumbosacral intervertebral disc; Translations: [Other intervertebral disc degeneration, lumbosacral region] Onset: 2 Resolved: 2 Chronic Spondylosis; intervertebral disc disorders; other back problems (20 sources) Low back pain; Translations: [Low back pain] Onset: 2 Resolved: 2 Episodic Substance-related disorders (20 sources) Tobacco dependence caused by cigarettes; Translations: [Nicotine dependence, cigarettes, uncomplicated] Onset: 4 02-03-2024 Chronic Unclassified (1 source) Establish Care Onset: 4 Unclassified (1 source) Evaluation of Abnormal Diagnostic Test Onset: 4 Unclassified (1 source) Post-op Onset: 4 Unclassified (1 source) Hip Injury Onset: 4 Unclassified (1 source) 53 yrs M (1970) Onset: 4 Unclassified (1 source) Ill Onset: 4 Unclassified (1 source) Difficulty Urinating Onset: 5 Unclassified (1 source) Low back pain, unspecified; Translations: [Low back pain, unspecified] Onset: 4 Unclassified (1 source) Consult Onset: 4 Past or Other Problems Problem Classification Problem Date Documented Date Episodic/Chronic Complications of surgical procedures or medical care (20 sources) Periprosthetic fracture around other internal prosthetic joint, initial encounter; Translations: [Periprosthetic fracture around other internal prosthetic joint, sequela] Onset: 01-29-2024 01-30-2024 Episodic Deficiency and other anemia (20 sources) Iron deficiency anemia; Translations: [Iron deficiency anemia, unspecified] Onset: 02-03-2024 02-03-2024 Episodic Fracture of neck of femur (hip) (20 sources) Fracture of unspecified part of neck of right femur, initial encounter for closed fracture; Translations: [Displaced intertrochanteric fracture of right femur, sequela] Onset: 01-17-2024 01-23-2024 Episodic Mood disorders (20 sources) Mood disorders; Translations: [Depression, unspecified] Onset: 01-22-2024 Resolved: 02-03-2024 02-03-2024 Other aftercare (1 source) 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; Translations: [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 (current) use of insulin] Onset: 02-03-2024 Episodic Other connective tissue disease (20 sources) Trochanteric bursitis of right hip; Translations: [Trochanteric bursitis, right hip] Onset: 03-14-2024 03-14-2024 Episodic Other connective tissue disease (1 source) Pain in lower limb Onset: 05-07-2024 Episodic Other connective tissue disease (1 source) Pain in right hand; Translations: [Pain in right hand] Onset: 07-18-2024 Episodic Other connective tissue disease (1 source) Pain in left hand; Translations: [Pain in left hand] Onset: 07-18-2024 Episodic Other injuries and conditions due to external causes (1 source) Personal history of (healed) traumatic fracture; Translations: [Personal history of (healed) traumatic fracture] Onset: 02-03-2024 Episodic Other injuries and conditions due to external causes (20 sources) H/O: hip fracture; Translations: [Personal history of (healed) traumatic fracture] Onset: 02-03-2024 02-03-2024 Episodic Other injuries and conditions due to external causes (1 source) Unspecified injury of right lower leg, initial encounter; Translations: [Unspecified injury of right lower leg, initial encounter] Onset: 01-17-2024 Episodic Other nervous system disorders (1 source) Anesthesia of skin; Translations: [Anesthesia of skin] Onset: 07-18-2024 Episodic Other non-traumatic joint disorders (4 sources) Pain in right knee; Translations: [Pain in joint, lower leg] Onset: 06-03-2024 06-17-2024 Episodic Other non-traumatic joint disorders (2 sources) Pain in left shoulder; Translations: [Pain in joint, shoulder region] Onset: 01-03-2024 01-03-2024 Episodic Other non-traumatic joint disorders (1 source) Knee pain Onset: 06-07-2024 Episodic Other non-traumatic joint disorders (1 source) Pain in right hip; Translations: [Pain in right hip] Onset: 05-07-2024 Episodic Other skin disorders (1 source) Localized swelling, mass and lump, right lower limb; Translations: [Localized swelling, mass and lump, right lower limb] Onset: 02-22-2024 Episodic Other skin disorders (1 source) Localized swelling of right lower limb; Translations: [Localized swelling, mass and lump, right lower limb] 02-22-2024 Episodic Residual codes; unclassified (2 sources) Postoperative state; Translations: [Other specified postprocedural states] Onset: 04-23-2018 04-26-2018 Episodic Residual codes; unclassified (1 source) Localized edema; Translations: [Localized edema] Onset: 06-07-2024 Episodic Residual codes; unclassified (8 sources) History of lumbar laminectomy; Translations: [Other specified postprocedural states] Onset: 04-23-2018 11-25-2024 Episodic Residual codes; unclassified (1 source) Pain, unspecified; Translations: [Pain, unspecified] Onset: 09-04-2024 Episodic Skin and subcutaneous tissue infections (20 sources) Infected face; Translations: [Local infection of the skin and subcutaneous tissue, unspecified] Onset: 04-04-2021 04-04-2021 Episodic Unclassified (11 sources) Onset: 07-18-2024 07-18-2024 Results Test Name Value Interpretation Reference Range Facility [facility]18-2024 [facility] Telephone ([facility]IN[facility]) -------- RUTH SMITH ([id number]) 1970 M Date Time Provider Department 12/18/24 ABRAHAN RINALDI During your visit today, we recorded the following information about you: Citlalli Layton LPN 12/18/2024 2:22 PM Signed Message left for patient to call in with an update. Please document the % (40%, 50%,etc) of improvement and any functional improvement since his procedure with Dr. Rinaldi on 12/16/24. Right L5-S1 Transforaminal Epidural Steroid injection # 1 Pre pain: 8 Post pain: 7 Plan: Return to clinic in 4-6 weeks for follow up. No Echols, RN 12/19/2024 1:56 PM Signed Patient calling back reporting 50% pain relief- mostly in the lower back. Unable to give a percentage of functional improvement. States he has been sick for the last coupe days and has not been out of bed much. He has VV with Komal Hernadez on 01/03. Will schedule 4-6 week follow up at that visit per patient. Ellen Palm RN 12/23/2024 11:30 AM Signed Pt is identified by name and birthdate: Yes Patient calls C/O right hip AND leg pain. Has a lot pressure whenever he applies pressure when walking Still has numbness going down both legs whenever he is sitting on toilet Also C/O neck pain Requesting something for the pain until his 01/03 appt Please advise Komal Hernadez, JOHN.ELIANE 12/24/2024 9:25 AM Signed Can we call patient and screen him for red flag symptoms and get description of pain pain Did his injection help? What is he taking for pain KEENA with Dr. Rinaldi: Discussed the above findings and potential options with the patient. Chief complaint is axial LBP and Rt LE pain - worse with sitting. Has had facet injections - no benefit. Suggest: - hematology eval regarding thrombocytopenia - option for Right L 5-S1 TFESI - after verifying - other options include Neuro CPRP / Neuromodulation. - potential trial of duloxetine after hematology evaluation - trial of increase of gabapentin to 400/400/800 hs Komal Hernadez APRN.Karen Mcneill LPN 12/24/2024 2:00 PM Signed Spoke with pt, reviewed below message from [facility]. Patient denies the following red flag symptoms: fever or chills, weight loss, changes in bowel or bladder control (difficulty holding your urine or stool), saddle anesthesia (numbness or tingling in your groin), progressive numbness or weakness, or redness or drainage at the injection site. If any of these symptoms should arise you should seek emergency treatment. Pt stated his lbp is intermittent and improved since his TFESI. Right inner thigh pain is also better. Pt said he has right sciatica pain radiating around to his right lateral leg down to almost his ankle. Pt reports it is painful to walk on rt leg. Pt stated he has a hx of a fx pelvis and femur 1 yr ago and not sure if this is causing his leg pain. Pt also c/o neck pain radiating to bilateral shoulders, L>R(this is not new) Pt is taking OTC Acetaminophen, Using heat AND ice. Pt is taking Gabapentin 400/400/800. Pt did follow up with Hematology. Has an US ordered. Pt having an UGI and lower GI scopes on Monday. FryArvindAzul 12/26/2024 11:17 AM Signed Pt calling to ask if something could be called in for pain? He states this is neck and leg pain. He is not sleeping well or eating much because of this. Please advise Pharm: Komal Dalton APRN.ELIANE 12/26/2024 1:56 PM Signed Office visit reviewed with Dr. Rinaldi who recommended consult to [facility] Continue Gabapentin 400/400/800 Komal Hernadez APRN.Karen Mcneill LPN 12/27/2024 2:06 PM Signed Spoke with pt, reviewed below message, pt verbalized understanding. CPRP pamphlet mailed to pt verified home address. Allergies As of Date: 12/18/2024 Noted Allergy Reaction CLINDAMYCIN 11/28/2024 14 - Other: See Comments INSULIN GLARGINE 12/01/2023 8 - GI Upset Comments: basaglar Date Reviewed: 12/16/2024 Reviewed by: Gianna Terry, ELIAS - Fully Assessed Reason for Visit: Pain Procedure Response AND follow up [Other] Cmt: Right L5-S1 Transforaminal Epidural Steroid injection # 1 Prescriptions as of 12/27/2024 - hyoscyamine (LEVSIN) 0.125 mg tablet Take 0.125 mg by mouth. - omeprazole (PRILOSEC) 40 mg capsule Take 40 mg by mouth. - XIFAXAN 550 mg tablet Take 550 mg by mouth. - gabapentin (NEURONTIN) 400 mg capsule Take 400 mg by mouth three times a day. - carvedilol (COREG) 3.125 mg tablet Take 3.125 mg by mouth two times a day with meals. - colestipol (COLESTID) 1 gram tablet Take 1 g by mouth two times a day. - sucralfate (CARAFATE) 1 gram tablet Take 1 g by mouth three times a day. - eluxadoline (VIBERZI) 100 mg tab Take 100 mg by mouth two times a day. - albuterol HFA (PROVENTIL HFA, VENTOLIN HFA) 90 mcg/actuation inhaler Inhale 2 puffs as instructed. - semaglutide 0.25 mg/0.5 mL (more content not included)... Normal [facility] HISTORY PHYSICALon HISTORY PHYSICAL HNO ID: [id number] Author: ABRAHAN RINALDI MD Service: Pain Management Author Type: Physician Type: H&P Filed: 12/16/2024 08:13 Note Text: UPDATED HISTORY AND PHYSICAL EXAMINATION SERVICE DATE: 12/16/2024 SERVICE TIME: 8 am PHYSICAL EXAM MUST BE COMPLETED ON ADMISSION The History and Physical (completed in the past 30 days) has been reviewed and the patient has been examined. The contents accurately reflect the patient's condition with the following additions or revisions since the HANDP was completed. Examination indicates no changes. This HANDP can be found in the attached. SIGNATURE: Abrahan Rinaldi MD PATIENT NAME: Ruth Smith DATE: December 16, 2024 TIME: 8:12 AM Normal [facility] HISTORY PHYSICAL HNO ID: [id number] Author: MARC NULL APRN.LICENSING REPRESENTATIVE Service: ? Author Type: Nurse Practitioner Type: H&P Filed: 12/16/2024 07:50 Note Text: PROCEDURAL SEDATION HISTORY AND PHYSICAL EXAM SERVICE DATE: 12/16/2024 SERVICE TIME: 7:50 AM Subjective HPI: This is a 54 year old male who presents with Radicular syndrome of right leg [M54.10] History of lumbar laminectomy [Z98.890] Diabetic peripheral neuropathy (HCC) [E11.42] schedule for INJECTION(S) STEROID TRANSFORAMINAL EPIDURAL LUMBAR W/IMAGE GUIDANCE FLUORO OR CT today. Patient denies recent illnesses, fevers, chills, cough, SOB, CP, palpitations, or fluttering. PAST ANESTHESIA HISTORY: No history of adverse event Procedure: INJECTION(S) STEROID TRANSFORAMINAL EPIDURAL LUMBAR W/IMAGE GUIDANCE FLUORO OR CT - Right Procedure Procedure: INJECTION(S) STEROID TRANSFORAMINAL EPIDURAL LUMBAR W/IMAGE GUIDANCE FLUORO OR CT - Right Procedure Indication: chronic pain PAST MEDICAL HISTORY Diagnosis Date Bipolar 1 disorder (HCC) Cirrhosis (HCC) Colon cancer (HCC) Diabetes (HCC) Hypertension Splenomegaly PAST SURGICAL HISTORY Procedure Laterality Date BACK SURGERY HX Lumbar L5 COLONOSCOPY 02/22/2018 EGD 02/22/2018 PAST SURGICAL HISTORY OF left foot surgery PAST SURGICAL HISTORY OF back injections Prior to Admission medications as of 11/28/24 1551 Medication Sig Last Dose Taking hyoscyamine (LEVSIN) 0.125 mg tablet Take 0.125 mg by mouth. omeprazole (PRILOSEC) 40 mg capsule Take 40 mg by mouth. XIFAXAN 550 mg tablet Take 550 mg by mouth. gabapentin (NEURONTIN) 400 mg capsule Take 400 mg by mouth three times a day. carvedilol (COREG) 3.125 mg tablet Take 3.125 mg by mouth two times a day with meals. colestipol (COLESTID) 1 gram tablet Take 1 g by mouth two times a day. sucralfate (CARAFATE) 1 gram tablet Take 1 g by mouth three times a day. eluxadoline (VIBERZI) 100 mg tab Take 100 mg by mouth two times a day. albuterol HFA (PROVENTIL HFA, VENTOLIN HFA) 90 mcg/actuation inhaler Inhale 2 puffs as instructed. semaglutide 0.25 mg/0.5 mL (0.5 mg/mL) subcutaneous compounded injection Inject subcutaneously one time a week. atorvastatin (LIPITOR) 40 mg tablet Take 40 mg by mouth once daily. magnesium oxide 400 mg magnesium cap Take 400 mg by mouth once daily. cyclobenzaprine (FLEXERIL) 10 mg tablet Take 10 mg by mouth three times a day. losartan (COZAAR) 50 mg tablet Take 50 mg by mouth once daily. insulin degludec (TRESIBA FLEXTOUCH U-100) 100 unit/mL (3 mL) injection pen Inject subcutaneously daily at bedtime. Patient not taking: Reported on 11/28/2024 tamsulosin ER (FLOMAX) 0.4 mg cap Take 1 capsule by mouth once daily. traZODone (DESYREL) 50 mg tablet Take 50 mg by mouth daily at bedtime. linagliptin-metFORMIN (JENTADUETO) 2.5-1,000 mg tab Take by mouth. hydroCHLOROthiazide (HYDRODIURIL, ESIDRIX) 25 mg tablet Take 25 mg by mouth once daily. Fenofibrate (LOFIBRA) 160 mg tablet Take 160 mg by mouth once daily. citalopram (CELEXA) 40 mg tablet Take 40 mg by mouth once daily. ALLERGIES Allergen Reactions Clindamycin Other: See Comments Insulin Glargine GI Upset basaglar Objective PHYSICAL EXAM: The remainder of the physical exam is noncontributory. AIRWAY: Mouth opening greater than 3 fingerbreadths: Yes Neck Full Range of Motion: Yes LUNGS: Lungs clear to auscultation CARDIAC: Regular rhythm,Regular rate Pending vitals, surgeon will determine whether or not to proceed Assessment/Plan Radicular syndrome of right leg [M54.10] History of lumbar laminectomy [Z98.890] Diabetic peripheral neuropathy (HCC) [E11.42] Provisional Diagnosis/Treatment Plan: INJECTION(S) STEROID TRANSFORAMINAL EPIDURAL LUMBAR W/IMAGE GUIDANCE FLUORO OR CT SIGNATURE: Marc Null APRN.CNP PATIENT NAME: Ruth Smith DATE: December 16, 2024 TIME: 7:50 AM Normal [facility] OPERATIVE NOon 12-16-2024 OPERATIVE NO HNO ID: [id number] Author: ABRAHAN RINALDI MD Service: Pain Management Author Type: Physician Type: Operative Report Filed: 12/16/2024 08:27 Note Text: Patient Name Medical Record # Ruth Smith [id number] Date of : 1970 Admit Date: December 16, 2024 Sex / Age: male/54 year old Discharge Date: December 16, 2024 Attending Physician: Abrahan Rinaldi MD Date: December 16, 2024 Service: OPERATIVE REPORT LOG ID: [id number] Surgery/Procedure Date: 12/16/2024 Incision/Procedure Start Time: 8:16 AM Incision Close/Procedure End Time: 8:20 AM Surgeon(s)/Proceduralist (s) and Pearl Cutter(s): Surgeons and Role: * Abrahan Rinaldi MD - Primary No Additional Staff PREOPERATIVE DIAGNOSIS: Right Lumbosacral Radiculopathy and Lumbar Postlaminectomy Syndrome POSTOPERATIVE DIAGNOSIS: Same NAME OF OPERATION: Right L5-S1 Transforaminal Epidural Steroid injection # 1 under fluoroscopic guidance. SURGEON: Abrahan Rinaldi MD WHITE SOURER: None ANESTHESIA: Moderate sedation and local anesthesia using: Versed 2 mg IV normal airway, chest excursion and heart rate. Airway reassessed immediately prior to medication administration, and IV sedation was administered incrementally to allow the patient to remain comfortable and conversant throughout the procedure. SEDATION START TIME: 8:15 AM SEDATION END TIME: 8:22 AM INFORMED CONSENT: Risks, benefits and alternatives were discussed with the patient in detail. He verbalized understanding and agreed to proceed. PROCEDURE: The patient was brought to fluoroscopy OR suite. Intravenous access was obtained prior to the procedure. The patient positioned prone on the fluoroscopy table. Continuous hemodynamic monitoring was initiated including blood pressure, EKG and pulse oximetry. Intravenous sedation was administered incrementally to allow the patient to remain comfortable and conversant throughout the procedure. The area of the lumbar spine was prepped well with povidone-iodine x 3 and draped into a sterile field. Skin anesthesia was achieved using total of 3 cc of lidocaine 1 % over receptive injection site. An oblique fluoroscopic view was obtained, with the superior articular process of the inferior vertebral body aligned with the pedicle on the right side. The tip of a 22 gauge 5 inches Quinke needle was or needles were advanced toward the 6 o?clock position of theright L5-S1 pedicle under intermittent fluoroscopic guidance. Confirmation of proper needle position was made with AP and Oblique fluoroscopic views. Negative aspiration for blood or CSF was confirmed on the right side. 1mL of Omnipaque contrast was injected to confirm spread on the right side. Fluoroscopic imaging revealed a clear outline of the spinal nerve with proximal spread of agent through the neural foramen into the anterior epidural space and there was absence of vascular uptake on the right side. A total of 3 cc of lidocaine 1% mixed with 40 mg of Triamcinolone was injected at this level, for a total of 40 mg of Triamcinolone. needle was then removed and bleeding was nil. Sterile dressing was applied and the patient was brought to the Recovery Room in stable condition. Complications: None. Estimated Blood Loss: None. Drains: None. Implantable Device: None. Specimen: None. IAbrahan MD performed the entire procedure. ASSESSMENT AND PLAN: Ruth Smith is status post right L5-S1 Transforaminal epidural steroid injection. He did very well without any apparent complications. He is to return to clinic in 4-6 weeks for follow up. Postoperative instructions were given. He voiced understanding. He was taken to the recovery room in stable condition. Abrahan Rinaldi MD Pain Management December 16, 2024 Normal [facility] US abdomen limitedon 025 US abdomen limited [facility] [place] [address] [place] [address] Ultrasound Report Signed Patient: Ruth Smith MR#: [id number] : 1970 Acct:[id number] Age/Sex: 54 / M ADM Date: 12/12/24 Loc: Room: Type: [facility] Attending Dr: Guillermo Thornton MD Ordering Provider: Guillermo Thornton MD Date of Service: 12/12/24 US/US abdomen limited: K74.60 - Unspecified cirrhosis of liver Copies to: Guillermo Thornton MD LIMITED ABDOMINAL ULTRASOUND: CLINICAL HISTORY: Cirrhosis/fatty liver COMPARISON: CT 08/21/2023 TECHNIQUE: Grayscale and color Doppler images of the right upper quadrant organs were obtained. FINDINGS: Pancreas: Not visualized Liver: Course and heterogeneous echotexture. Multiple hypoechoic structures identified within notably the left lower lobe noted. Liver enlarged 20.1 cm. Hepatopedal flow at level of main portal vein. Gallbladder: Echogenic debris, mildly distended measuring greater than 5 cm. [#Is negative. Borderline wall thickening 2.9 mm. CBD: 4.9 mm US/US abdomen limited IMPRESSION: DISTENDED GALLBLADDER WITH BORDERLINE WALL THICKENING AND QUESTIONABLE LAYERING SLUDGE OR GALLSTONES.. HETEROGENEOUS LIVER NONVISUALIZATION OF PANCREAS Impression dictated by: Thierry Kuo M.D. 12/12/2024 7:59 PM Dictation Location: [facility] Tech: Keren Hope Transcribed By: YAZ 12/12/241958 Dictated By: Thierry Kuo MD 12/12/241954 Signed By: 12/12/241958 Normal [facility] Measure post void residualon 12-04-2024 Volume 83 mL RT [facility] 12-02-2024 CNPN Telephone (ORLOR[place]) -------- LUISRUTH BRAVO ([id number]) 1970 M Date Time Provider Department 12/02/24 ABRAHAN RINALDI During your visit today, we recorded the following information about you: Brennen Agrawal 12/02/2024 9:22 AM Signed Right L5-S1 TFESI RUTH SMITH [id number] IESHA 12/16 -THINNERS +DM Patient was made aware that the [facility] will call the day prior to scheduled procedure between the hours of 12 and 4 pm to advise patient of arrival time the day of procedure. Patient was advised that they will require a transport truck driver on the day of their procedure, and procedure will be cancelled if they arrive without a responsible adult to transport them home from the procedure. Patient advised that all medication management instructions prior to procedure will need addressed by clinical staff. Patient expresses understanding with no further questions or concerns at this time. Allergies As of Date: 12/02/2024 Noted Allergy Reaction CLINDAMYCIN 11/28/2024 14 - Other: See Comments INSULIN GLARGINE 12/01/2023 8 - GI Upset Comments: basaglar Date Reviewed: 11/28/2024 Reviewed by: Janeth Roper MA - Fully Assessed Reason for Visit: Schedule Injection [3498] Primary Visit Diagnosis:Radicular syndrome of right leg [M54.10] Other Visit Diagnoses:History of lumbar laminectomy [Z98.890] Diabetic peripheral neuropathy (HCC) [E11.42] Order(s):SURGICAL REQUEST - ELECTIVE (03/2020) [8524031] Order #: [id number]: 1 Prescriptions as of 12/02/2024 - hyoscyamine (LEVSIN) 0.125 mg tablet Take 0.125 mg by mouth. - omeprazole (PRILOSEC) 40 mg capsule Take 40 mg by mouth. - XIFAXAN 550 mg tablet Take 550 mg by mouth. - gabapentin (NEURONTIN) 400 mg capsule Take 400 mg by mouth three times a day. - carvedilol (COREG) 3.125 mg tablet Take 3.125 mg by mouth two times a day with meals. - colestipol (COLESTID) 1 gram tablet Take 1 g by mouth two times a day. - sucralfate (CARAFATE) 1 gram tablet Take 1 g by mouth three times a day. - eluxadoline (VIBERZI) 100 mg tab Take 100 mg by mouth two times a day. - albuterol HFA (PROVENTIL HFA, VENTOLIN HFA) 90 mcg/actuation inhaler Inhale 2 puffs as instructed. - semaglutide 0.25 mg/0.5 mL (0.5 mg/mL) subcutaneous compounded injection Inject subcutaneously one time a week. - atorvastatin (LIPITOR) 40 mg tablet Take 40 mg by mouth once daily. - magnesium oxide 400 mg magnesium cap Take 400 mg by mouth once daily. - cyclobenzaprine (FLEXERIL) 10 mg tablet Take 10 mg by mouth three times a day. - losartan (COZAAR) 50 mg tablet Take 50 mg by mouth once daily. - insulin degludec (TRESIBA FLEXTOUCH U-100) 100 unit/mL (3 mL) injection pen Inject subcutaneously daily at bedtime. - tamsulosin ER (FLOMAX) 0.4 mg cap Take 1 capsule by mouth once daily. - traZODone (DESYREL) 50 mg tablet Take 50 mg by mouth daily at bedtime. - linagliptin-metFORMIN (JENTADUETO) 2.5-1,000 mg tab Take by mouth. - hydroCHLOROthiazide (HYDRODIURIL, ESIDRIX) 25 mg tablet Take 25 mg by mouth once daily. - Fenofibrate (LOFIBRA) 160 mg tablet Take 160 mg by mouth once daily. - citalopram (CELEXA) 40 mg tablet Take 40 mg by mouth once daily. Problem List As Of Date 12/02/2024 Noted Resolved Colon cancer (HCC) [C18.9] 03/21/2018 Diabetes (HCC) [E11.9] Hypertension [I10] History of lumbar laminectomy [Z98.890] 04/23/2018 Acute right-sided low back pain with right-side*11/25/2024 Thrombocytopenia [D69.6] 11/25/2024 History of total right hip replacement [Z96.641]11/25/2024 Diabetic peripheral neuropathy (HCC) [E11.42] 11/25/2024 Radicular syndrome of right leg [M54.10] 11/25/2024 Encounter Status:Closed by BRENNEN AGRAWAL on 12/02/24 Normal [facility] CARCINOEMBRYONIC ANTIGENon 0 11-29-2024 Carcinoembryonic Ag [Mass/Vol] 4.1 ng/mL High NINF - 2.9 ng/mL [facility] Comment on above: Carcinoembryonic ant igen test is used as an aid in monitoring response to treatment or recurrence in patients with established colorectal, breast, lung, prostatic, pancreatic, and ovarian carcinomas. Clinical correlation is required. The Carcinoembryonic antigen test was performed using the Luxoftel DXI paramagnetic particle chemiluminescent immunoassay method. Results obtained with different assay methods or kits cannot be used interchangeably. CBC W Auto Differential pane l (Bld)on 11-29-2024 Basophils (Bld) [#/Vol] 0.05 10*3/uL [facility] Basophils/100 WBC (Bld) 0.6 % [facility] Differential cell count method Nom (Bld) Auto [facility] Eosinophils (Bld) [#/Vol] 0.03 10*3/uL [facility] Eosinophils/100 WBC (Bld) 0.3 % [facility] Erythrocyte distribution width (RBC) [Ratio] 15.2 % High 11.5 - 15.0 % [facility] Hematocrit (Bld) [Volume fraction] 46.3 % 39.0 - 51.0 % [facility] Hemoglobin (Bld) [Mass/Vol] 15.3 g/dL 13.0 - 17.0 g/dL [facility] Immature granulocytes (Bld) [#/Vol] 0.04 10*3/uL [facility] Immature granulocytes/100 WBC (Bld) 0.5 % [facility] Interpretation and review of laboratory results Abnormal [facility] Lymphocytes (Bld) [#/Vol] 2.06 10*3/uL [facility] Lymphocytes/100 WBC (Bld) 23.7 % [facility] MCH (RBC) [Entitic mass] 27.5 pg 26.0 - 34.0 pg [facility] MCHC (RBC) [Mass/Vol] 33 g/dL 30.5 - 36.0 g/dL [facility] MCV (RBC) [Entitic vol] 83.1 fL 80.0 - 100.0 fL [facility] Monocytes (Bld) [#/Vol] 0.52 10*3/uL NINF [facility] Monocytes/100 WBC (Bld) 6 % [facility] Neutrophils (Bld) [#/Vol] 5.99 10*3/uL [facility] Neutrophils/100 WBC (Bld) 68.9 % [facility] Nucleated RBC (Bld) [#/Vol] NINF [facility] Nucleated RBC/100 WBC (Bld) [Ratio] 0 % /100 WBC [facility] Platelet mean volume (Bld) [Entitic vol] 12.9 fL High 9.0 - 12.7 fL [facility] Platelets (Bld) [#/Vol] 135 10*3/uL Low [facility] RBC (Bld) [#/Vol] 5.57 10*6/uL 4.20 - 6.00 m/uL [facility] WBC (Bld) [#/Vol] 8.69 10*3/uL [facility] Carcinoembryonic Ag [Mass/Vo l]on 11-29-2024 Interpretation and review of laboratory results Abnormal [facility] Comprehensive metabolic 2000 panelOrdered By: Malou Mckee on 11-29-2024 Albumin [Mass/Vol] 4.8 g/dL 3.9 - 4.9 g/dL [facility] ALP [Catalytic activity/Vol] 80 U/L 38 - 113 U/L [facility] ALT [Catalytic activity/Vol] 7 U/L Low 10 - 54 U/L [facility] Anion gap [Moles/Vol] 14 mmol/L 8 - 15 mmol/L [facility] AST [Catalytic activity/Vol] 14 U/L 14 - 40 U/L [facility] Bilirubin [Mass/Vol] 0.6 mg/dL 0.2 - 1 .3 mg/dL [facility] Calcium [Mass/Vol] 10.3 mg/dL High 8.5 - 10. 2 mg/dL [facility] Chloride [Moles/Vol] 101 mmol/L 98 - 10 7 mmol/L [facility] CO2 [Moles/Vol] 23 mmol/L 22 - 30 mmol/L [facility] Creatinine [Mass/Vol] 0.77 mg/dL 0.73 - 1.22 mg/dL [facility] GFR/1.73 sq M.predicted among non-blacks MDRD (S/P/Bld) [Vol rate/Area] 105 mL/min/{1.73_m2} - PINF [facility] Comment on above: Estimated Glomerular Filtration Rate (eGFR) is calculated using the 2020 CKD-EPI creatinine equation. This equation utilizes serum creatinine, sex, and age as parameters. The creatinine assay has traceable calibration to isotope dilution-mass spectrometry. Refer to KDIGO guidelines for clinical interpretation. In patients with unstable renal function, e.g. those with acute kidney injury, the eGFR may not accurately reflect actual GFR. Glucose [Mass/Vol] 150 mg/dL High 74 - 99 mg/dL [facility] Comment on above: The [place] Diab[employer] Association (ADA) provides guidance for cutoff values for fasting glucose and random glucose. The ADA defines fasting as no caloric intake for at least 8 hours. Fasting plasma glucose results between 100 to 125 mg/dL indicate increased risk for diabetes (prediabetes). Fasting plasma glucose results greater than or equal to 126 mg/dL meet the criteria for diagnosis of diabetes. In the absence of unequivocal hyperglycemia, results should be confirmed by repeat testing. In a patient with classic symptoms of hyperglycemia or hyperglycemic crisis, random plasma glucose results greater than or equal to 200 mg/dL meet the criteria for diagnosis of diabetes. Reference: Standards of Medical Care in Diabetes 2016, [place] [employer]. Diabetes Care. 2016.39(Suppl 1). Potassium [Moles/Vol] 4.2 mmol/L 3.7 - 5.1 mmol/L [facility] Protein [Mass/Vol] 7.6 g/dL 6.3 - 8.0 g/dL [facility] Sodium [Moles/Vol] 138 mmol/L 136 - 144 mmol/L [facility] Urea nitrogen [Mass/Vol] 10 mg/dL 9 - 24 mg/dL [facility] FOLATE, SERUMon 11-29-2024 Folate [Mass/Vol] 11.6 ng/mL 4.7 - PINF ng/mL [facility] LACTATE DEHYDROGENASEon 11-12 LDH [Catalytic activity/Vol] 130 U/L Low 135 - 225 U/L [facility] Comment on above: Hemolysis present. T he origin of the hemolysis, in vitro versus an in vivo hemolytic process, cannot be distinguished via this assay alone. In vitro hemolysis may lead to non-physiological (spurious) elevation in lactate dehydrogenase (LDH) results. The result should be interpreted in context of the clinical setting and other test results. Suggest reorder as clinically indicated. No Panel InformationOrdered By: Malou Mckee on 11-29-2024 Interpretation and review of laboratory results Abnormal [facility] No Panel Informationon 11-29 Interpretation and review of laboratory results Normal [facility] Nuclear Ab IA Ql (S)on 11-29 LEATHA Scr Qual Negative Negative [facility] Comment on above: The qualitative anti nuclear antibody screen test performed using the following antigens: dsDNA, Chromatin, Ribosomal P, SS-A 60, SS-A 52, SS-B, Sm, SmRNP, HERPETOLOGY TEACHER A, HERPETOLOGY TEACHER 68, Scl-70, Deidra-1, and Centromere B. Methodology: Multiplex flow immunoassay. Interpretation and review of laboratory results Normal [facility] VITAMIN B12on 11-29-2024 Cobalamin (Vitamin B12) [Mass/Vol] 306 pg/mL 232 - 1245 pg/mL [facility] CBC W Auto Differential pane l (Bld)on 11-28-2024 Basophils (Bld) [#/Vol] 0.05 10*3/uL Normal <0.11 [facility] Comment on above: Order Comment: Speci men Type: BLOOD SPECIMEN Ordering Facility: [facility] Address: [address] [place] [address] Performed By: #### 5 7021-8 #### [facility] CLIA [id number] [address] [place] [address] Basophils/100 WBC (Bld) 0.6 % Normal [facility] Comment on above: Order Comment: Speci men Type: BLOOD SPECIMEN Ordering Facility: [facility] Address: [address] [place] [address] Performed By: #### 5 7021-8 #### [facility] CLIA [id number] [address] [place] [address] Differential cell count method Nom (Bld) Auto Normal [facility] Comment on above: Order Comment: Speci men Type: BLOOD SPECIMEN Ordering Facility: [facility] Address: [address] [place] [address] Performed By: #### 5 7021-8 #### [facility] CLIA [id number] [address] [place] [address] Eosinophils (Bld) [#/Vol] 0.03 10*3/uL Normal <0.46 [facility] Comment on above: Order Comment: Speci men Type: BLOOD SPECIMEN Ordering Facility: [facility] Address: [address] [place] [address] Performed By: #### 5 7021-8 #### [facility] CLIA [id number] [address] [place] [address] 90993 Eosinophils/100 WBC (Bld) 0.3 % Normal [facility] Comment on above: Order Comment: Speci men Type: BLOOD SPECIMEN Ordering Facility: [facility] Address: [address] [place] [address] Performed By: #### 5 7021-8 #### [facility] CLIA [id number] [address] [place] [address] Erythrocyte distribution width (RBC) [Ratio] 15.2 % High 11.5-15.0 [facility] Comment on above: Order Comment: Speci men Type: BLOOD SPECIMEN Ordering Facility: [facility] Address: [address] [place] [address] Performed By: #### 5 7021-8 #### [facility] CLIA [id number] [address] [place] [address] Hematocrit (Bld) [Volume fraction] 46.3 % Normal 39.0-51.0 [facility] Comment on above: Order Comment: Speci men Type: BLOOD SPECIMEN Ordering Facility: [facility] Address: [address] [place] [address] Performed By: #### 5 7021-8 #### [facility] CLIA [id number] [address] [place] [address]994 Hemoglobin (Bld) [Mass/Vol] 15.3 g/dL Normal 13.0-17.0 [facility] Comment on above: Order Comment: Speci men Type: BLOOD SPECIMEN Ordering Facility: [facility] Address: [address] [place] [address] Performed By: #### 5 7021-8 #### [facility] CLIA [id number] [address] [place] [address] 92766 Immature granulocytes (Bld) [#/Vol] 0.04 10*3/uL Normal <0.10 [facility] Comment on above: Order Comment: Speci men Type: BLOOD SPECIMEN Ordering Facility: [facility] Address: [address] [place] [address] Performed By: #### 5 7021-8 #### [facility] CLIA [id number] [address] [place] [address] 69350 Immature granulocytes/100 WBC (Bld) 0.5 % Normal [facility] Comment on above: Order Comment: Speci men Type: BLOOD SPECIMEN Ordering Facility: [facility] Address: [address] [place] [address] Performed By: #### 5 7021-8 #### [facility] CLIA [id number] [address] [place] [address] 76052 Lymphocytes (Bld) [#/Vol] 2.06 10*3/uL Normal 1.00-4.00 [facility] Comment on above: Order Comment: Speci men Type: BLOOD SPECIMEN Ordering Facility: [facility] Address: [address] [place] [address] Performed By: #### 5 7021-8 #### [facility] CLIA [id number] [address] [place] [address] 19112 Lymphocytes/100 WBC (Bld) 23.7 % Normal [facility] Comment on above: Order Comment: Speci men Type: BLOOD SPECIMEN Ordering Facility: [facility] Address: [address] [place] [address] Performed By: #### 5 7021-8 #### [facility] CLIA [id number] [address] [place] [address] 74533 MCH (RBC) [Entitic mass] 27.5 pg Normal 26.0-34.0 [facility] Comment on above: Order Comment: Speci men Type: BLOOD SPECIMEN Ordering Facility: [facility] Address: [address] [place] [address] Performed By: #### 5 7021-8 #### [facility] CLIA [id number] [address] [place] [address] 58385 MCHC (RBC) [Mass/Vol] 33.0 g/dL Normal 30.5-36.0 [facility] Comment on above: Order Comment: Speci men Type: BLOOD SPECIMEN Ordering Facility: [facility] Address: [address] [place] [address] Performed By: #### 5 7021-8 #### [facility] CLIA [id number] [address] [place] [address] 78605 MCV (RBC) [Entitic vol] 83.1 fL Normal 80.0-100.0 [facility] Comment on above: Order Comment: Speci men Type: BLOOD SPECIMEN Ordering Facility: [facility] Address: [address] [place] [address] Performed By: #### 5 7021-8 #### [facility] CLIA [id number] [address] [place] [address]237 Monocytes (Bld) [#/Vol] 0.52 10*3/uL Normal <0.87 [facility] Comment on above: Order Comment: Speci men Type: BLOOD SPECIMEN Ordering Facility: [facility] Address: [address] [place] [address] Performed By: #### 5 7021-8 #### [facility] CLIA [id number] [address] [place] [address] 73046 Monocytes/100 WBC (Bld) 6.0 % Normal [facility] Comment on above: Order Comment: Speci men Type: BLOOD SPECIMEN Ordering Facility: [facility] Address: [address] [place] [address] Performed By: #### 5 7021-8 #### [facility] CLIA [id number] [address] [place] [address] Neutrophils (Bld) [#/Vol] 5.99 10*3/uL Normal 1.45-7.50 [facility] Comment on above: Order Comment: Speci men Type: BLOOD SPECIMEN Ordering Facility: [facility] Address: [address] [place] [address] Performed By: #### 5 7021-8 #### [facility] CLIA [id number] [address] [place] [address] 88700 Neutrophils/100 WBC (Bld) 68.9 % Normal [facility] Comment on above: Order Comment: Speci men Type: BLOOD SPECIMEN Ordering Facility: [facility] Address: [address] [place] [address] Performed By: #### 5 7021-8 #### [facility] CLIA [id number] [address] [place] [address] 38993 Nucleated RBC (Bld) [#/Vol] 10*3/uL Normal <0.01 [facility] Comment on above: Order Comment: Speci men Type: BLOOD SPECIMEN Ordering Facility: [facility] Address: [address] [place] [address] Performed By: #### 5 7021-8 #### [facility] CLIA [id number] [address] [place] [address] 30059 Nucleated RBC/100 WBC (Bld) [Ratio] 0.0 /100 WBC Normal [facility] Center Comment on above: Order Comment: Speci men Type: BLOOD SPECIMEN Ordering Facility: [facility] Address: [address] [place] [address] Performed By: #### 5 7021-8 #### [facility] CLIA [id number] [address] [place] [address] 60378 Platelet mean volume (Bld) [Entitic vol] 12.9 fL High 9.0-12.7 [facility] Comment on above: Order Comment: Speci men Type: BLOOD SPECIMEN Ordering Facility: [facility] Address: [address] [place] [address] Performed By: #### 5 7021-8 #### [facility] CLIA [id number] [address] [place] [address] 24901 Platelets (Bld) [#/Vol] 135 10*3/uL Low 150-400 [facility] Comment on above: Order Comment: Speci men Type: BLOOD SPECIMEN Ordering Facility: [facility] Address: [address] [place] [address] Performed By: #### 5 7021-8 #### [facility] CLIA [id number] [address] [place] [address] 41552 RBC (Bld) [#/Vol] 5.57 10*6/uL Normal 4.20-6.00 [facility] Comment on above: Order Comment: Speci men Type: BLOOD SPECIMEN Ordering Facility: [facility] Address: [address] [place] [address] Performed By: #### 5 7021-8 #### [facility] CLIA [id number] [address] [place] [address] 38980 WBC (Bld) [#/Vol] 8.69 10*3/uL Normal 3.70-11.00 [facility] Comment on above: Order Comment: Speci men Type: BLOOD SPECIMEN Ordering Facility: [facility] Address: [address] [place] [address] Performed By: #### 5 7021-8 #### [facility] CLIA [id number] [address] [place] [address]646 [facility] Carcinoembryonic Ag [Mass/Vol] 4.1 ng/mL High <=2.9 [facility] Comment on above: Order Comment: Speci men Type: BLOOD SPECIMENOrdering Facility: [facility] Address: [address] [place] [address] Result Comment: Carc inoembryonic antigen test is used as an aid in monitoring response to treatment or recurrence in patients with established colorectal, breast, lung, prostatic, pancreatic, and ovarian carcinomas. Clinical correlation is required. The Carcinoembryonic antigen test was performed using the [employer] [place] Unicel DXI paramagnetic particle chemiluminescent immunoassay method. Results obtained with different assay methods or kits cannot be used interchangeably. Performed By: #### 2 039-6 ####[facility] LABIA [id number] [address] CNOVSPon 11-28-2024 CNOVSP Visit (SP) Office ([place]) -------- RUTH SMITH ([id number]) 1970 M Date Time Provider Department 11/28/24 4:00 PM ZAC CROUCH During your visit today, we recorded the following information about you: Temperature Pulse Respiration Blood pressure 97.9 degrees 91/minute 18/minute 143/83 Weight 105 kg Zac Crouch MD 11/29/2024 8:20 AM Signed PATIENT NAME: Ruth Smith CLINIC NO.: [id number] ATTENDING PHYSICIAN: Zac Crouch MD DATE OF SERVICE: November 28, [address] Abrahan Rinaldi [address] [facility] [address] thank you for referring Ruth Smith for an opinion regarding Thrombocytoopenia. CHIEF COMPLAINT: Thrombocytopenia HPI: Ruth Smith is a 54 year old year old male with PMH of liver cirrhosis from Hep C (treated), colon cancer s/p surgery in 2018, chronic back pain, HTN, IBS, DM referred to us for thrombocytopenia. Smokes half pack daily Quit alcohol many yrs ago. On disability. C/o back pain. No other complaints. Current Outpatient Medications Medication Sig hyoscyamine (LEVSIN) 0.125 mg tablet Take 0.125 mg by mouth. omeprazole (PRILOSEC) 40 mg capsule Take 40 mg by mouth. XIFAXAN 550 mg tablet Take 550 mg by mouth. gabapentin (NEURONTIN) 400 mg capsule Take 400 mg by mouth three times a day. carvedilol (COREG) 3.125 mg tablet Take 3.125 mg by mouth two times a day with meals. colestipol (COLESTID) 1 gram tablet Take 1 g by mouth two times a day. sucralfate (CARAFATE) 1 gram tablet Take 1 g by mouth three times a day. eluxadoline (VIBERZI) 100 mg tab Take 100 mg by mouth two times a day. albuterol HFA (PROVENTIL HFA, VENTOLIN HFA) 90 mcg/actuation inhaler Inhale 2 puffs as instructed. semaglutide 0.25 mg/0.5 mL (0.5 mg/mL) subcutaneous compounded injection Inject subcutaneously one time a week. atorvastatin (LIPITOR) 40 mg tablet Take 40 mg by mouth once daily. magnesium oxide 400 mg magnesium cap Take 400 mg by mouth once daily. cyclobenzaprine (FLEXERIL) 10 mg tablet Take 10 mg by mouth three times a day. losartan (COZAAR) 50 mg tablet Take 50 mg by mouth once daily. tamsulosin ER (FLOMAX) 0.4 mg cap Take 1 capsule by mouth once daily. traZODone (DESYREL) 50 mg tablet Take 50 mg by mouth daily at bedtime. linagliptin-metFORMIN (JENTADUETO) 2.5-1,000 mg tab Take by mouth. hydroCHLOROthiazide (HYDRODIURIL, ESIDRIX) 25 mg tablet Take 25 mg by mouth once daily. Fenofibrate (LOFIBRA) 160 mg tablet Take 160 mg by mouth once daily. citalopram (CELEXA) 40 mg tablet Take 40 mg by mouth once daily. insulin degludec (TRESIBA FLEXTOUCH U-100) 100 unit/mL (3 mL) injection pen Inject subcutaneously daily at bedtime. (Patient not taking: Reported on 11/28/2024) No current facility-administered medications for this visit. ALLERGIES Allergen Reactions Clindamycin Other: See Comments Insulin Glargine GI Upset basaglar PAST MEDICAL HISTORY Diagnosis Date Bipolar 1 disorder (HCC) Cirrhosis (HCC) Colon cancer (HCC) Diabetes (HCC) Hypertension Splenomegaly PAST SURGICAL HISTORY Procedure Laterality Date BACK SURGERY HX Lumbar L5 COLONOSCOPY 02/22/2018 EGD 02/22/2018 PAST SURGICAL HISTORY OF left foot surgery PAST SURGICAL HISTORY OF back injections FAMILY HISTORY Problem Relation Age of Onset Heart Attack Father at 59. Multiple CABG, defib Social History Tobacco Use Smoking status: Former Current packs/day: 0.00 Types: Cigarettes Quit date: 2010 Years since quittin.3 Smokeless tobacco: Never Substance Use Topics Alcohol use: No Drug use: No REVIEW OF SYSTEMS GENERAL: No weight loss, malaise or fevers. No night sweats. HEENT: Negative for headaches, No changes in hearing or vision, no nose bleeds or other nasal problems. RESPIRATORY: Negative for cough, wheezing and shortness of breath CARDIOVASCULAR: Negative for chest pain, leg swelling and palpitations GI: Negative for abdominal discomfort, blood in stools or black stools and change in bowel habits : Negative for dysuria, frequency and incontinence MUSCULOSKELETAL: Negative for joint pain or swelling, back pain, and muscle pain. SKIN: Negative for lesions, rash, and itching. HEMATOLOGY/LYMPHOLOGY Negative for prolonged bleeding, bruising easily, and swollen nodes. NEURO: Negative for numbness or tingling of hands/feet. No weakness. PHYSICAL EXAMINATION: BP 143/83 Pulse 91 Temp 36.6 ?C (97.9 ?F) (Temporal) Resp 18 Wt 105 kg (231 lb 7.7 oz) SpO2 99% BMI 30.54 kg/m? There were no vitals taken for this visit. Last 3 Encounter Wt Readings: Date: Wt: 11/22/2024 102.1 kg (225 lb) 06/10/2019 114.3 kg (252 lb) 05/28/2018 120.7 kg (266 lb) General appearance:ECOG PERFORMANCE STATUS: 1- Restricted in physically strenuous activity. Carries out light duty. Patient in NA (more content not included)... Normal [facility] COPPER BLOODon 11-28-2024 Copper [Mass/Vol] 83 ug/dL Normal 70-140 [facility] Comment on above: Order Comment: Speci men Type: BLOOD SPECIMENOrdering Facility: [facility] Address: [address] [place] [address] Result Comment: This test was developed, and its performance characteristics determined by the [facility] Department of Pathology and Laboratory Medicine. It has not been cleared or approved by the FDA. The [facility] Department of Pathology and Laboratory Medicine is regulated under CLIA as qualified to perform high-complexity testing. This test is used for clinical purposes. It should not be regarded as investigational or for research. Performed By: #### C ABUNDIO, 5763-8 ####[facility] LABCLIA [id number] [place] [address] [facility] Comprehensive metabolic 2000 panelon 11-28-2024 Albumin [Mass/Vol] 4.8 g/dL Normal 3.9-4.9 [facility] Comment on above: Order Comment: Speci men Type: BLOOD SPECIMENOrdering Facility: [facility] Address: [address] [place] [address] Performed By: #### 2 4323-8, 2531-0 ####[facility]CLIA [id number] [place] [address] ALP [Catalytic activity/Vol] 80 U/L Normal 38-113 [facility] Comment on above: Order Comment: Speci men Type: BLOOD SPECIMENOrdering Facility: [facility] Address: [address] [place] [address] Performed By: #### 2 4323-8, 253-0 ####[facility]CLIA [id number] [place] [address] ALT [Catalytic activity/Vol] 7 U/L Low 10-54 [facility] Comment on above: Order Comment: Speci men Type: BLOOD SPECIMENOrdering Facility: [facility] Address: [address] [place] [address] Performed By: #### 2 4323-8, 253-0 ####[facility]CLIA [id number] [place] [address] Anion gap [Moles/Vol] 14 mmol/L Normal 8-15 [facility] Comment on above: Order Comment: Speci men Type: BLOOD SPECIMENOrdering Facility: [facility] Address: [address] [place] [address] [place] [address] Performed By: #### 2 4323-8, 2531-0 ####[facility]CLIA [id number] [place] [address] AST [Catalytic activity/Vol] 14 U/L Normal 14-40 [facility] Comment on above: Order Comment: Speci men Type: BLOOD SPECIMENOrdering Facility: [facility] Address: [address] [place] [address] Performed By: #### 2 432-8, 2531-0 ####[facility]CLIA [id number] [place] [address] Bilirubin [Mass/Vol] 0.6 mg/dL Normal 0.2-1.3 [facility] Comment on above: Order Comment: Speci men Type: BLOOD SPECIMENOrdering Facility: [facility] Address: [address] [place] [address] Performed By: #### 2 4328, 2531-0 ####[facility]CLIA [id number] [place] [address] Calcium [Mass/Vol] 10.3 mg/dL High 8.5-10.2 [facility] Comment on above: Order Comment: Speci men Type: BLOOD SPECIMENOrdering Facility: [facility] Address: [address] [place] [address] Performed By: #### 2 43238, 0 ####[facility]CLIA [id number] [place] [address] Chloride [Moles/Vol] 101 mmol/L Normal 98-107 [facility] Comment on above: Order Comment: Speci men Type: BLOOD SPECIMENOrdering Facility: [facility] Address: [address] [place] [address] Performed By: #### 2 4323-8, 2531-0 ####[facility]CLIA [id number] [place] [address] CO2 [Moles/Vol] 23 mmol/L Normal 22-30 [facility] Comment on above: Order Comment: Speci men Type: BLOOD SPECIMENOrdering Facility: [facility] Address: [address] [place] [address] Performed By: #### 2 4323-8, 2532-0 ####[facility]CLIA [id number] [place] [address] Creatinine [Mass/Vol] 0.77 mg/dL Normal 0.73-1.22 [facility] Comment on above: Order Comment: Speci men Type: BLOOD SPECIMENOrdering Facility: [facility] Address: [address] [place] [address] Performed By: #### 2 4323-8, 253-0 ####[facility]CLIA [id number] [place] [address] Creatinine and Glomerular filtration rate.predicted panel (S/P/Bld) 105 mL/min/1.73m??? Normal >=60 [facility] Comment on above: Order Comment: Speci men Type: BLOOD SPECIMENOrdering Facility: [facility] Address: [address] [place] [address] Result Comment: Lou mated Glomerular Filtration Rate (eGFR) is calculated using the 2020 CKD-EPI creatinine equation. This equation utilizes serum creatinine, sex, and age as parameters. The creatinine assay has traceable calibration to isotope dilution-mass spectrometry. Refer to KDIGO guidelines for clinical interpretation. In patients with unstable renal function, e.g. those with acute kidney injury, the eGFR may not accurately reflect actual GFR. Performed By: #### 2 4323-8, 2532-0 ####[facility]CLIA [id number] [place] [address] Glucose [Mass/Vol] 150 mg/dL High 74-99 [facility] Comment on above: Order Comment: Speci men Type: BLOOD SPECIMENOrdering Facility: [facility] Address: [address], [place] [address] Result Comment: The [place] Diabetes Association (ADA) provides guidance for cutoff values for fasting glucose and random glucose. The ADA defines fasting as no caloric intake for at least 8 hours. Fasting plasma glucose results between 100 to 125 mg/dL indicate increased risk for diabetes (prediabetes). Fasting plasma glucose results greater than or equal to 126 mg/dL meet the criteria for diagnosis of diabetes. In the absence of unequivocal hyperglycemia, results should be confirmed by repeat testing. In a patient with classic symptoms of hyperglycemia or hyperglycemic crisis, random plasma glucose results greater than or equal to 200 mg/dL meet the criteria for diagnosis of diabetes. Reference: Standards of Medical Care in Diabetes 2016, [place] Diabetes Association. Diabetes Care. 2016.39(Suppl 1). Performed By: #### 2 4323-8, 0 ####[facility]CLIA [id number] [place] [address] Potassium [Moles/Vol] 4.2 mmol/L Normal 3.7-5.1 [facility] Comment on above: Order Comment: Speci men Type: BLOOD SPECIMENOrdering Facility: [facility] Address: [address] [place] [address] Performed By: #### 2 43238, 0 ####[facility]IA [id number] [place] [address] Protein [Mass/Vol] 7.6 g/dL Normal 6.3-8.0 [facility] Comment on above: Order Comment: Speci men Type: BLOOD SPECIMENOrdering Facility: [facility] Address: [address] [place] [address] Performed By: #### 2 43238, 0 ####[facility]IA [id number] [place] [address] Sodium [Moles/Vol] 138 mmol/L Normal 136-144 [facility] Comment on above: Order Comment: Speci men Type: BLOOD SPECIMENOrdering Facility: [facility] Address: [address] [place] [address] Performed By: #### 2 4323-8, 2531-0 ####[facility] LABCLIA [id number] [place] [address] Urea nitrogen [Mass/Vol] 10 mg/dL Normal 9-24 [facility] Comment on above: Order Comment: Speci men Type: BLOOD SPECIMENOrdering Facility: [facility] Address: [address] [place] [address] Performed By: #### 2 4323-8, 2531-0 ####[facility] LABCLIA [id number] [place] [address] Folate SerPl-mCncon 11-29-19 25 Folate [Mass/Vol] 11.6 ng/mL Normal >4.7 [facility] Comment on above: Order Comment: Speci men Type: BLOOD SPECIMENOrdering Facility: [facility] Address: [address] [place] [address] Performed By: #### 2 132-9, 2284-8 ####[facility] LABCLIA [id number] [place] [address] [place] LDH SerPl-cCncon 11-28-2024 LDH [Catalytic activity/Vol] 130 U/L Low 135-225 [facility] Comment on above: Order Comment: Speci men Type: BLOOD SPECIMENOrdering Facility: [facility] Address: [address] [place] [address] Result Comment: Hemo lysis present. The origin of the hemolysis, in vitro versus an in vivo hemolytic process, cannot be distinguished via this assay alone. In vitro hemolysis may lead to non-physiological (spurious) elevation in lactate dehydrogenase (LDH) results. The result should be interpreted in context of the clinical setting and other test results. Suggest reorder as clinically indicated. Performed By: #### 2 4323-8, 2531-0 ####[facility] LABCLIA [id number] [place] [address] Nuclear Ab IA Ql (S)on 11-28 LEATHA SCR QUAL Negative Normal Negative [facility] Comment on above: Order Comment: Speci men Type: BLOOD SPECIMENOrdering Facility: [facility] Address: [address] [place] [address] Result Comment: The qualitative antinuclear antibody screen test performed using the following antigens: dsDNA, Chromatin, Ribosomal P, SS-A 60, SS-A 52, SS-B, Sm, SmRNP, HERPETOLOGY TEACHER A, HERPETOLOGY TEACHER 68, Scl-70, Deidra-1, and Centromere B. Methodology: Multiplex flow immunoassay. Performed By: #### 4 7383-5 ####[facility] [id number] [place] [address] [place] Vit B12 SerPl-ncon 025 Cobalamin (Vitamin B12) [Mass/Vol] 306 pg/mL Normal 232-1245 [facility] Comment on above: Order Comment: Speci men Type: BLOOD SPECIMENOrdering Facility: [facility] Address: [address] [place] [address] Performed By: #### 2 132-9, 2284-8 ####[facility] [id number] [place] [address] [place] [facility]2024 Zinc [Mass/Vol] 76 ug/dL Normal 60-120 [facility] Comment on above: Order Comment: Speci men Type: BLOOD SPECIMENOrdering Facility: [facility] Address: [address] [place] [address] Result Comment: This test was developed, and its performance characteristics determined by the [facility] Department of Pathology and Laboratory Medicine. It has not been cleared or approved by the FDA. The [facility] Department of Pathology and Laboratory Medicine is regulated under CLIA as qualified to perform high-complexity testing. This test is used for clinical purposes. It should not be regarded as investigational or for research. Performed By: #### C OPPIYUSH, 5763-8 ####[facility] [id number] [place] [address] [place] CNPNon 11-25-2024 CNPN Telephone ([facility]) -------- RUTH SMITH ([id number]) 1970 M Date Time Provider Department 11/25/24 ZAC CROUCH During your visit today, we recorded the following information about you: Zac Crouch MD 11/25/2024 10:27 AM Signed Can you please reschedule him to some other time on Monday, or Monday? Thank you. Donavon De La Garza 11/25/2024 1:05 PM Signed Spoke to patient AND rescheduled him on 11/28/2024 at 1 pm. BEN Holly Adarsh, MD 11/25/2024 1:30 PM Signed Thank you. Allergies As of Date: 11/25/2024 (No Known Allergies) Date Reviewed: 11/22/2024 Reviewed by: Abrahan Rinaldi MD - Fully Assessed Prescriptions as of 11/25/2024 - colestipol (COLESTID) 1 gram tablet Take 1 g by mouth two times a day. - sucralfate (CARAFATE) 1 gram tablet Take 1 g by mouth three times a day. - eluxadoline (VIBERZI) 100 mg tab Take 100 mg by mouth two times a day. - albuterol HFA (PROVENTIL HFA, VENTOLIN HFA) 90 mcg/actuation inhaler Inhale 2 puffs as instructed. - carvedilol (COREG) 3.125 mg tablet Take 3.125 mg by mouth two times a day with meals. - semaglutide 0.25 mg/0.5 mL (0.5 mg/mL) subcutaneous compounded injection Inject subcutaneously one time a week. - atorvastatin (LIPITOR) 40 mg tablet Take 40 mg by mouth once daily. - magnesium oxide 400 mg magnesium cap Take 400 mg by mouth once daily. - cyclobenzaprine (FLEXERIL) 10 mg tablet Take 10 mg by mouth three times a day. - losartan (COZAAR) 50 mg tablet Take 50 mg by mouth once daily. - insulin degludec (TRESIBA FLEXTOUCH U-100) 100 unit/mL (3 mL) injection pen Inject subcutaneously daily at bedtime. - tamsulosin ER (FLOMAX) 0.4 mg cap Take 1 capsule by mouth once daily. - traZODone (DESYREL) 50 mg tablet Take 50 mg by mouth daily at bedtime. - linagliptin-metFORMIN (JENTADUETO) 2.5-1,000 mg tab Take by mouth. - hydroCHLOROthiazide (HYDRODIURIL, ESIDRIX) 25 mg tablet Take 25 mg by mouth once daily. - Fenofibrate (LOFIBRA) 160 mg tablet Take 160 mg by mouth once daily. - citalopram (CELEXA) 20 mg tablet Take 40 mg by mouth once daily. - gabapentin (NEURONTIN) 300 mg capsule Take 400 mg by mouth three times a day. 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 CNOVon 11-22-2024 CNOV Office Visit (PAINLN ) -------- RUTH SMITH ([id number]) 1970 M Date Time Provider Department 11/22/24 2:00 PM ABRAHAN RINALDI PAINLN During your visit today, we recorded the following information about you: Pulse Weight Height 110/minute 102.1 kg 1.854 m Abrahan Rinaldi MD 11/25/2024 8:23 AM Signed SUBJECTIVE: Mr. Smith a 54 year old male referred by Martha Faulkner APRN.LICENSING REPRESENTATIVE presents with the complaint of low back pain that radiates into his right buttock down the leg into his ankle Patient reports the date of onset of symptoms as several years and describes the location of the pain as lower lumbar. The pain is chronic, dull, aching, cramping, sharp, shooting, throbbing, and tender, and rated as 8 on a scale of 1-10, with radiation. PAIN RATIO: (back:leg): Back > Leg Patient reports that LBP is increased by sitting and relieved by unknown . Ambulation distance (before needing to sit): not far Standing time (before needing to sit): as long as he has to OTHER BACK PAIN SYMPTOMS: NIGHT PAIN: Yes PARESTHESIA: Yes POOR SLEEP: Yes BOWEL/BLADDER INCONTINENCE OR RETENTION: Yes Urine retention ACTIVITY LIMITATIONS: ADLs PREVIOUS TREATMENTS LASTING SIX WEEKS IN THE LAST SIX MONTHS Active conservative therapy lasting 6 weeks in the last six months (see below) 1. Physical therapy: 2023 Neck 2. Home exercise program after PT: Yes 3. Occupational therapy: No 4. A physician supervised home exercise program (HEP): No 5. News Producer: No Passive conservative therapy lasting 6 weeks in the last six months (see below) 1. Medical devises: No 2. Acupuncture: No 3. Tens unit: No 4. Prescription pain medication: Yes 5. NSAIDS: Yes OCCUPATIONAL HISTORY: [employer] HISTORY OF TRAUMA/OVERUSE OF AREA: No REVIEW OF SYSTEMS: GENERAL: Negative for malaise, significant weight loss and fever HEENT: Negative for frequent or significant headaches NECK: Negative for lumps, goiter, pain and significant neck swelling RESPIRATORY: Negative for cough, hemoptysis, wheezing, COPD, dyspnea or shortness of breath CARDIOVASCULAR: Negative for chest pain, leg swelling, hypertension, CHF or palpitations GI: No nausea, vomiting, or diarrhea : No history of dysuria, frequency or incontinence MUSCULOSKELETAL: See HPI SKIN: Negative for lesions, rash, and itching PSYCH: Negative for sleep disturbance, mood disorder and recent psychosocial stressors. HEMATOLOGY/LYMPHOLOGY Negative for prolonged bleeding, bruising easily or swollen nodes ENDOCRINE: Negative for cold or heat intolerance, polyuria, polydipsia and goiter PAST MEDICAL HISTORY Diagnosis Date Bipolar 1 disorder (HCC) Cirrhosis (HCC) Colon cancer (HCC) Diabetes (HCC) Hypertension Splenomegaly PAST MEDICAL HISTORY Diagnosis Date Bipolar 1 disorder (HCC) Cirrhosis (HCC) Colon cancer (HCC) Diabetes (HCC) Hypertension Splenomegaly PAST SURGICAL HISTORY Procedure Laterality Date BACK SURGERY HX Lumbar L5 COLONOSCOPY 02/22/2018 EGD 02/22/2018 PAST SURGICAL HISTORY OF left foot surgery PAST SURGICAL HISTORY OF back injections EXAMINATION: [id number] OR: Scoliosis: No Pelvic Tilt: No Leg Length discrepancy: NA LATERAL: Cervical Lordosis: No Thoracic Kyphosis: No Lumbar Lordosis: No RANGE OF MOTION CERVICAL: Flexion: Not Limited Extension: Not Limited Rotation L: Not Limited Rotation R: Not Limited LUMBAR: Flexion: Not Limited Extension: Not Limited Rotation L: Not Limited Rotation R: Not Limited FINGER TO FLOOR DISTANCE: Knee Gait: Normal REFLEXES R L Biceps (C6): 1-2+ 1-2+ Triceps (C7): 1-2+ 1-2+ Brachioradiolis (C6): 1-2+ 1-2+ Ankle (S1): 2+ 2+ Knee (L4): 2+ 2+ STRENGTH (0-5): R L Deltoid (AB:C5,6): 5 5 Biceps (Flex:C5,6): 5 5 Wrist Ext.(C6,7): 5 5 Interrosei (C8,T1): 5 5 PSOAS (L2,3): 5 5 Gluteus (L5,S1,2): 5 5 Quadriceps (L3,4): 5 5 EHL (L5): 5 5 Soleus (S1): 5 5 SLR: Seated - Right Negative, Left Negative Piriformis Stretch: Negative Babinski Negative Negative Vibration sensation: WNL Proprioception: WNL PRONE Fem Stretch: Negative HIP: ROM is WNL without pain in flexion, extension and internal rotation. FABERES: Negative ROSCOE TEST 1) Tenderness: Appropriate 2) Simulation/Axial Loading/ROT: Appropriate 3) Distraction: Seated SLR: Appropriate 4) Reqional Disturbances: Appropriate 5) Overreaction: Appropriate PHYSICAL EXAMINATION: GENERAL APPEARANCE: Well appearing, in no acute distress SKIN: Skin color, texture, turgor normal. No rashes or lesions. HEAD: Normocephalic. No masses, lesions, tenderness or abnormalities EYES: Conjunctivae/corneas clear. Pupils are equally round and reactive to light. Extraocular movements are intact. NECK: Neck supple, no adenopathy; thyroid symmetric, nor (more content not included)... Normal [facility] CBC AND AUTO DIFFon 11-13-19 25 ABSOLUTE BASOPHIL 0.0 X10E9/L Normal 0.0-0.2 [facility] Comment on above: Performed By: #### C LAUREN, CMP ####[facility] ([id number])[address] [place] [address] 80906 ABSOLUTE NEUTROPHIL 5.8 X10E9/L Normal 1.5-6.6 [facility] Comment on above: Performed By: #### Venu AGUILAR, CMP ####[facility] ([id number])[address] [place] [address] 80817 Basophils/100 WBC (Bld) 0.5 % Normal [facility] Comment on above: Performed By: #### Venu AGUILAR, CMP ####[facility] ([id number])[address] [place] [address] 96607 Eosinophils (Bld) [#/Vol] 0.0 10*3/uL Normal 0.0-0.[address] [facility] Comment on above: Performed By: #### Venu AGUILAR, CMP ####[facility] ([id number])[address] [place] [address] 47494 Eosinophils/100 WBC (Bld) 0.3 % Normal [facility] Comment on above: Performed By: #### Venu AGUILAR, CMP ####[facility] ([id number])[address] [place] [address] 59362 Erythrocyte distribution width (RBC) [Ratio] 15.9 % High 11.5-15.[address] [facility] Comment on above: Performed By: #### C BCA, CMP ####[facility] ([id number])[address] [place] [address] 55483 Hematocrit (Bld) [Volume fraction] 45.0 % Normal 39-[address] [facility] Comment on above: Performed By: #### C BCA, CMP ####[facility] ([id number])[address] [place] [address] 17893 Hemoglobin (Bld) [Mass/Vol] 15.2 g/dL Normal 13.0-17.[address] [facility] Comment on above: Performed By: #### C ALUREN, CMP ####[facility] ([id number])[address] [place] [address] 78738 Lymphocytes (Bld) [#/Vol] 1.7 10*3/uL Normal 1.0-3.[address] [facility] Comment on above: Performed By: #### C LAUREN, CMP ####[facility] ([id number])[address] [place] [address] 11598 Lymphocytes/100 WBC (Bld) 20.7 % Normal [facility] Comment on above: Performed By: #### C LAUREN, CMP ####[facility] ([id number])[address] [place] [address] 28966 MCH (RBC) [Entitic mass] 27.7 pg Normal 27-[address] [facility] Comment on above: Performed By: #### C BCA, CMP ####[facility] ([id number])[address] [place] [address] 64441 MCHC (RBC) [Mass/Vol] 33.8 g/dL Normal 32-36 [facility] Comment on above: Performed By: #### C BCA, CMP ####[facility] ([id number])[address] [place] [address] 32992 MCV (RBC) [Entitic vol] 82 fL Normal 80-[address] [facility] Comment on above: Performed By: #### C BCA, CMP ####[facility] ([id number])[address] [place] [address] 74202 Monocytes (Bld) [#/Vol] 0.6 10*3/uL Normal 0-0.[address] [facility] Comment on above: Performed By: #### C LAUREN, CMP ####[facility] ([id number])[address] [place] [address] 68495 Monocytes/100 WBC (Bld) 7.6 % Normal [facility] Comment on above: Performed By: #### C LAUREN, CMP ####[facility] ([id number])[address] [place] [address] 88343 Neutrophils/100 WBC (Bld) 70.9 % Normal [facility] Comment on above: Performed By: #### C LAUREN, CMP ####[facility] ([id number])[address] [place] [address] [place] [address] Platelet mean volume (Bld) [Entitic vol] 11.0 fL Normal 7-[address] [facility] Comment on above: Performed By: #### C LAUREN, CMP ####[facility] ([id number])[address] [place] [address] 90017 Platelets (Bld) [#/Vol] 101 10*3/uL Low 150-[address] [facility] Comment on above: Performed By: #### C BCA, CMP ####[facility] ([id number])[address] [place] [address] 27264 RBC COUNT 5.48 X10E12/L Normal 4.10-5.[address] [facility] Comment on above: Performed By: #### C BCA, CMP ####[facility] ([id number])[address] [place] [address] 78390 WBC (Bld) [#/Vol] 8.2 10*3/uL Normal 4.0-11.0 [facility] Comment on above: Performed By: #### C BCA, CMP ####[facility] ([id number])[address] [place] [address] 75232 COMPREHENSIVE METABOLIC PANE Benito 11-12-2024 Albumin [Mass/Vol] 4.2 g/dL Normal 3.2-5.3 [facility] Comment on above: Performed By: #### C BCA, CMP ####[facility] ([id number])[address] [place] [address] 17054 ALP [Catalytic activity/Vol] 63 U/L Normal 39-[address] [facility] Comment on above: Performed By: #### C BCA, CMP ####[facility] ([id number])[address] [place] [address] 47755 ALT [Catalytic activity/Vol] 11 U/L Normal 0-[address] [facility] Comment on above: Performed By: #### C BCA, CMP ####[facility] ([id number])[address] [place] [address] 21586 Anion gap [Moles/Vol] 11 mmol/L Normal 5-15 [facility] Comment on above: Performed By: #### C BCA, CMP ####[facility] ([id number])[address] [place] [address] 24824 AST [Catalytic activity/Vol] 19 U/L Normal 0-[address] [facility] Comment on above: Performed By: #### C BCA, CMP ####[facility] ([id number])[address] [place] [address] 15557 Bilirubin [Mass/Vol] 0.8 mg/dL Normal 0.3-1.2 [facility] Comment on above: Performed By: #### C BCA, CMP ####[facility] ([id number])[address] [place] [address] [place] [address] Calcium [Mass/Vol] 9.3 mg/dL Normal 8.5-10.5 [facility] Comment on above: Performed By: #### C BCA, CMP ####[facility] ([id number])[address] [place] [address] [place] [address] Chloride [Moles/Vol] 101 mmol/L Normal 98-109 [facility] Comment on above: Performed By: #### C BCA, CMP ####[facility] ([id number])[address] [place] [address] 09277 CO2 [Moles/Vol] 26 mmol/L Normal 22-[address] [facility] Comment on above: Performed By: #### C BCA, CMP ####[facility] ([id number])[address] [place] [address] 44957 Creatinine [Mass/Vol] 0.86 mg/dL Normal 0.70-1.20 [facility] Comment on above: Result Comment: METH OD TRACEABLE TO IDMS STANDARD Performed By: #### C LAUREN, CMP ####[facility] ([id number])[address] [place] [address] [place] [address] eGFR (CKD-EPI) NON-RACE DEPENDENT >90 Normal >[address] [facility] Comment on above: Result Comment: Reported eGFR is based on the CKD-EPI 2021 equation that does not use a race coefficient. Performed By: #### C BCA, CMP ####[facility] ([id number])[address] [place] [address] [place] [address] Glucose [Mass/Vol] 147 mg/dL High 65-99 [facility] Comment on above: Performed By: #### C BCA, CMP ####[facility] ([id number])[address] [place] [address] [place] [address] Potassium [Moles/Vol] 4.0 mmol/L Normal 3.5-5.0 [facility] Comment on above: Performed By: #### C BCA, CMP ####[facility] ([id number])[address] [place] [address] 57808 Protein [Mass/Vol] 7.5 g/dL Normal 6.0-8.0 [facility] Comment on above: Performed By: #### C BCA, CMP ####[facility] ([id number])[address] [place] [address] 67845 Sodium [Moles/Vol] 138 mmol/L Normal 134-146 [facility] Comment on above: Performed By: #### C BCA, CMP ####[facility] ([id number])[address] [place] [address] 24114 Urea nitrogen [Mass/Vol] 15 mg/dL Normal 5-[address] [facility] Comment on above: Performed By: #### C BCA, CMP ####[facility] ([id number])[address] [place] [address] ABDOMEN AND PELVIS WO CON Ton 11-12-2024 CT ABDOMEN AND PELVIS WO CONT CT ABDOMEN AND PELVIS WO CONT EXAM: ABDOMEN AND PELVIS CT WITHOUT CONTRAST CLINICAL INFORMATION: pain, urinary retention. TECHNIQUE: Routine unenhanced CT of the abdomen and pelvis was performed utilizing 5 mm axial reconstructions. Coronal and sagittal reformatted images as were obtained and reviewed. Automated exposure control was utilized. COMPARISON: 10/31/2021 FINDINGS: The limited visualized lung bases are unremarkable. There are no renal or ureteral stones. There is no collecting system dilatation in either kidney. The gallbladder is present with tiny stones. There are morphologic changes of the liver compatible with underlying cirrhosis. A couple of punctate chronic hepatic calcifications are again noted. There is splenomegaly measuring 17.3 cm transverse, compatible with a component of underlying portal hypertension. The pancreas and adrenals are unremarkable within the limitations of an unenhanced CT. Again seen are postsurgical changes status post left partial colectomy with primary anastomosis. Fecal loading is noted within the colon; clinical correlation for symptoms attributable to constipation is recommended. There is no evidence of bowel obstruction. There are no dilated loops of bowel or evidence for pneumatosis or free air. A normal appendix is identified. There is no free fluid. The abdominal aorta and common iliac arteries are normal in diameter. There is partial visualization of proximal right femoral ORIF. IMPRESSION: 1. No acute abnormalities in the abdomen and pelvis, within the limitations of an unenhanced CT. 2. No evidence for renal or ureteral stones. There is no collecting system dilatation in either kidney. 3. Morphologic changes of the liver compatible with underlying cirrhosis. There is splenomegaly measuring 17.3 cm transverse, compatible with underlying portal hypertension. There is no ascites. 4. Suspected cholelithiasis. 5. Postsurgical changes status post partial left colectomy with primary anastomosis. There is no evidence of bowel obstruction. 6. Fecal loading is noted within the colon; clinical correlation for symptoms attributable to constipation is recommended. 7. Normal appendix. All CT scans at this facility use dose modulation, iterative reconstruction, and/or weight based dosing when appropriate to reduce radiation dose to as low as reasonably achievable. Finalized by Alex Tellez MD on 11/12/2024 4:[address] PM [address] [facility] CT LUMBAR RECONSTRUCTIONon 0 11-12-[address] LUMBAR RECONSTRUCTION STUDY: CT LUMBAR RECONSTRUCTION INDICATION: pain. Right radiculopathy. TECHNIQUE: * CT of the lumbar spine, was performed without intravenous contrast. Coronal & sagittal MPR images were generated and reviewed. * All CT scans at this facility use dose modulation, iterative reconstruction, and/or weight based dosing when appropriate to reduce radiation dose to as low as reasonably achievable. FINDINGS: Comparison is made to MR lumbar spine dated 08/27/2024. Chronic wedging/superior left L3, unchanged. Schmorl's node at the endplates. Multilevel degenerative changes with intervertebral disc space narrowing most significant at L4-L5 and L5-S1. Moderate bony neural foraminal narrowing at L3-L4, and to a lesser extent L4-L5 and L5-S1 demonstrate bony spinal canal stenosis. Cirrhotic liver morphology. Intra-abdominal, pelvic findings are dictated separately. IMPRESSION: * No evidence of acute fracture or traumatic malalignment. * Degenerative changes with prominent height loss at L3 and degenerative endplate changes most significant at L2-L3, L4-L5 and L5-S1. * Moderate bony neuroforaminal stenosis at L3-L4 and to a lesser extent L4-L5, L5-S1, better assessed on the prior MR dated 08/26/2024. Finalized by Octavio Bagley on 11/12/2024 4:48 PM Normal [facility] URN MACROSCOPIC NURon 2024 BILIRUBIN MANNIE Negative Normal NEG [facility] Comment on above: Performed By: #### N UM ####[facility] ([id number])[address] [place] [address] [place] [address] BLOOD/HGB MANNIE Negative Normal NEG [facility] Comment on above: Performed By: #### N UM ####[facility] ([id number])[address] [place] [address], [place] [address] GLUCOSE MANNIE Negative Normal NEG [facility] Comment on above: Performed By: #### N UM ####[facility] ([id number])[address] [place] [address], [place] [address] KETONES MANNIE Negative Normal NEG [facility] Comment on above: Performed By: #### N UM ####[facility] ([id number])[address] [place] [address], [place] [address] LEUKOCYTE ESTERASE MANNIE Negative Normal NEG [facility] Comment on above: Performed By: #### N UM ####[facility] ([id number])[address] [place] [address], [place] [address] NITRITE MANNIE Negative Normal NEG [facility] Comment on above: Performed By: #### N UM ####[facility] ([id number])[address] [place] [address] [place] [address] PH MANNIE 7.5 Normal 5.0-8.[address] [facility] Comment on above: Performed By: #### N UM ####[facility] ([id number])[address] [place] [address], [place] [address] PROTEIN MANNIE Negative Normal NEG [facility] Comment on above: Performed By: #### N UM ####[facility] ([id number])[address] [place] [address] 28925 SPECIFIC GRAVITY MANNIE 1.015 Normal 1.003-1 .[address] [facility] Comment on above: Performed By: #### N UM ####[facility] ([id number])[address] [place] [address] UROBILINOGEN MANNIE 1.0 eu/dL Normal <1.1 [facility] Comment on above: Performed By: #### N UM ####[facility] ([id number])[address] [place] [address] 95046 XR SPINE LUMBAR 2 OR 3 VWSon 11-03-2024 XR SPINE LUMBAR 2 OR 3 VWS XR SPINE LUMBAR 2 OR 3 VWS CLINICAL INFORMATION: lumbar back pain, radiation down right leg, fall TECHNIQUE: XR SPINE LUMBAR 2 OR 3 VWS 2 views of the lumbar spine were obtained. There is no lumbar malalignment. Mild superior endplate L3 compression is most likely nonacute. Mild to moderate degenerative changes. There is 4 millimeters retrolisthesis L3 on L4, likely degenerative. Sacral alar appear intact. Colonic stool burden is moderate. IMPRESSION: Lgqi-ud-xiwelwzo degenerative changes and slight retrolisthesis L3 on L4. Finalized by Aaron Wright MD on 11/03/2024 1:06 PM Normal [facility] Magnetic resonance imaging r eportOrdered By: Thierry Kuo on 08-27-2024 Study report [facility] [place] [address] MRI Report Signed Patient: Ruth Smith MR #: [id number] : 1970 Acct:[id number] Age/Sex: 54 / M ADM Date: 5 Loc: MR Room: Type: [facility] Attending Dr: Marcell DORMAN Copies to: DANDY Coon~ Ordering Provider: DANDY Coon Date of Service: 08/27/24 MR/MR lumbar spine wo/w con: M54.16,M47.816,M54.50,G8 9.29,Z98.898 ([id number]) XR/XR pre/post mri xray: M54.16,M47.816,M54.50,G8 9.29,Z98.890 MR lumbar spine wo/w con, XR pre/post mri xray 08/27/2024 1:49 PM SIGNS AND SYMPTOMS: ^M54.16,M47.816,M54.50,G 89.29,Z98.898 low back pain COMPARISON: MRI 04/15/2022 Contrast: 20 cc of ProHance was administered for the postcontrast imaging. FINDINGS: X-rays lumbar spine, 2 views: Multilevel degenerative changes throughout the lumbar spine with moderate severe disc space narrowing L4-S1 and L2-3. Yxre-lh-xynnzzie disc space narrowing elsewhere. Facet of the lower lumbar spine. Mild dextrocurvature lower lumbar spine. MRI lumbar spine: There is mild loss of height at L3, unchanged. Otherwise the remaining lumbar vertebral heights and alignment are maintained.. There is mild to moderate disc height loss at L2-L3. There is moderate severe disc height loss at L4-L5 and L5-S1. There is Schmorl's node formation at the inferior endplate of L2 and superior endplate of L3, unchanged. The conus terminates at the superior endplate of the L1 vertebral body level. No epidural or paraspinous fluid collection is appreciated. At T12-L1: There is no significant disc disease, focal protrusion, central central canal, or neural foraminal narrowing. At L1-L2: Minimal broad-based bulge. No significant canal or neural from narrowing. At L2-L3: There is a broad-based disc bulge with facet hypertrophy. There is mild to moderate right and mild left neural foraminal narrowing with mild spinalcanal stenosis, unchanged. At L3-L4: Mild broad-based disc bulge. Bilateral facet arthropathy. There is mild to moderate right and moderate left neural foraminal narrowing. Mild central canal narrowing. At L4-L5: Mild broad-based disc bulge and facet arthropathy. Mild spurring seenboth foramina regions causing mild rights moderate left neuroforaminal measuring. There is mild spinal canal narrowing. There is moderate bilateral neural foraminal narrowing. At L5-S1: There is a circumferential disc bulge with endplate osteophyte formation asymmetric towards the right. Bilateral moderate to severe facet hypertrophy. There is mild to moderate bilateral neural foraminal narrowing withmild spinal canal narrowing. No evidence of abnormal post contrast-enhancement. MR/MR lumbar spine wo/w con IMPRESSION: Overall mild progression of multilevel degenerative changes. No high-grade central canal or neural foraminal narrowing Impression dictated by: Thierry Kuo M.D.08/27/2024 3:33 PM Dictation Location: [place] [address] Transcribed By: [facility] 08/27/24 1533 Dictated By: Thierry Kuo MD 08/27/24 1519 Signed By: 08/27/24 [facility] Work Phone: XR pre/post mri xrayon 08-27 XR pre/post mri xray [facility] [place] [address] MRI Report Signed Patient: Ruth Smith MR#: [id number] : 1970 Acct:[id number] Age/Sex: 54 / M ADM Date: 08/27/24 Loc: Room: Type: [facility] Attending Dr: Marcell DORMAN Copies to: DANDY Coon Ordering Provider: DANDY Coon Date of Service: 08/27/24 MR/MR lumbar spine wo/w con: M54.16,M47.816,M54.50,G8 9.29,Z98.898 ([id number]) XR/XR pre/post mri xray: M54.16,M47.816,M54.50,G8 9.29,Z98.890 MR lumbar spine wo/w con, XR pre/post mri xray 08/27/2024 1:49 PM SIGNS AND SYMPTOMS: M54.16,M47.816,M54.50,G8 9.29,Z98.898 low back pain COMPARISON: MRI 04/15/2022 Contrast: 20 cc of ProHance was administered for the postcontrast imaging. FINDINGS: X-rays lumbar spine, 2 views: Multilevel degenerative changes throughout the lumbar spine with moderate severe disc space narrowing L4-S1 and L2-3. Qfjc-dr-cbxijzrx disc space narrowing elsewhere. Facet of the lower lumbar spine. Mild dextrocurvature lower lumbar spine. MRI lumbar spine: There is mild loss of height at L3, unchanged. Otherwise the remaining lumbar vertebral heights and alignment are maintained.. There is mild to moderate disc height loss at L2-L3. There is moderate severe disc height loss at L4-L5 and L5-S1. There is Schmorl's node formation at the inferior endplate of L2 and superior endplate of L3, unchanged. The conus terminates at the superior endplate of the L1 vertebral body level. No epidural or paraspinous fluid collection is appreciated. At T12-L1: There is no significant disc disease, focal protrusion, central central canal, or neural foraminal narrowing. At L1-L2: Minimal broad-based bulge. No significant canal or neural from narrowing. At L2-L3: There is a broad-based disc bulge with facet hypertrophy. There is mild to moderate right and mild left neural foraminal narrowing with mild spinal canal stenosis, unchanged. At L3-L4: Mild broad-based disc bulge. Bilateral facet arthropathy. There is mild to moderate right and moderate left neural foraminal narrowing. Mild central canal narrowing. At L4-L5: Mild broad-based disc bulge and facet arthropathy. Mild spurring seen both foramina regions causing mild rights moderate left neuroforaminal measuring. There is mild spinal canal narrowing. There is moderate bilateral neural foraminal narrowing. At L5-S1: There is a circumferential disc bulge with endplate osteophyte formation asymmetric towards the right. Bilateral moderate to severe facet hypertrophy. There is mild to moderate bilateral neural foraminal narrowing with mild spinal canal narrowing. No evidence of abnormal post contrast-enhancement. MR/MR lumbar spine wo/w con IMPRESSION: Overall mild progression of multilevel degenerative changes. No high-grade central canal or neural foraminal narrowing Impression dictated by: Thierry Kuo M.D.08/27/2024 3:33 PM Dictation Location: [facility] Transcribed By: [facility] 08/27/24 1533 Dictated By: Thierry Kuo MD 08/27/24 1519 Signed By: 08/27/24 1533 Normal [facility] EMG 2 Extremitieson 08-05-20 24 Normal [facility] of the bilateral upper [facility] N[facility] 11-12 Nerveson Normal EMG of the bilateral upper extremities [facility] $ Large Joint Injection: R g reater trochanteric bursaon 07-25-2024 Ang Figueroa MD 07/25/2024 2:13 PM $ Large Joint Injection: R greater trochanteric bursa on 07/25/2024 2:12 PM Indications: pain Details: 21 G needle, lateral approach Medications: 40 mg triamcinolone acetonide 40 mg/mL; 5 mL BUPivacaine HCl 0.25 % (2.5 mg/mL) MANUALLY TRANSCRIBED RESULTS [facility] XR HIP RT 2-3 VIEWS W OR WO PELVISon 07-25-2024 XR HIP RT 2-3 VIEWS W OR WO PELVIS XR HIP RT 2-3 VIEWS W OR WO PELVIS EXAM: XR HIP RT 2-3 VIEWS W OR WO PELVIS CLINICAL INFORMATION: Closed displaced intertrochanteric fracture of right femur with routine healing, subsequent encounter. COMPARISON: 05/07/2024 FINDINGS: There is redemonstration of postsurgical changes status post right femoral ORIF with a proximal cerclage wire and distal screws. There is no convincing radiographic evidence for hardware complications or failure. There is no evidence for an acute displaced fracture or dislocation of the pelvis and hips. IMPRESSION: 1. Negative for fracture or dislocation. 2. Status post right femoral ORIF, as before. There is no convincing radiographic evidence for hardware complications or failure. Finalized by Alex Tellez MD on 07/25/2024 2:52 PM Normal [facility] XR SPINE LUMB BENDING ONLY 2 -3 VWSon 07-16-2024 XR SPINE LUMB BENDING ONLY 2-3 VWS XR SPINE LUMB BENDING ONLY 2-3 VWS EXAM: XR SPINE LUMB BENDING ONLY 2-3 VWS CLINICAL INFORMATION: Back pain, unspecified back location, unspecified back pain laterality, unspecified chronicity. COMPARISON: 01/18/2024 FINDINGS: There is localized chronic minimal degenerative retrolisthesis of L3 on L4, stable in flexion and extension. There is no malalignment within the remainder of the lumbar spine. Stable chronic L2-3, L4-5, and L5-S1 degenerative disc disease. IMPRESSION: 1. Localized chronic minimal degenerative retrolisthesis of L3 on L4, stable in flexion and extension. Finalized by Alex Tellez MD on 07/16/2024 4:38 PM Normal [facility] XR KNEE RT 1 OR 2 [facility] 11- XR KNEE RT 1 OR 2 VWS XR KNEE RT 1 OR 2 VWS History: Fracture Exam/Technique: Frontal and lateral views of the right knee were obtained. Comparison: 06/03/2024 Findings: An intramedullary kateryna in the femur is again demonstrated. No hardware abnormalities are seen. Chondrocalcinosis of the menisci is again demonstrated. There is no evidence for an acute osseous abnormalities. A radiopaque foreign body overlying the distal femur on the frontal view showing to be external to the patient on the lateral view. IMPRESSION: Stable right knee. Finalized by Jeff Womack MD on 06/21/2024 10:10 AM Normal [facility] $ Large Joint Injection: Jacob chirinos 06-20-2024 Ang Figueroa MD 2023 2:44 PM $ Large Joint Injection: R knee on 06/20/2024 2:43 PM Indications: pain Details: 21 G needle, anterolateral approach Medications: 40 mg triamcinolone acetonide 40 mg/mL; 5 mL BUPivacaine HCl 0.25 % (2.5 mg/mL) MANUALLY TRANSCRIBED RESULTS [facility] Fibrin D-dimer DDU (PPP) [Ma ss/Vol]on 06-07-2024 D DIMER 309 ng/mL DDU High <[address] [facility] Comment on above: Result Comment: Results >=255ng/mL DDU: Results may be indicative of the presence of VTE. The use of the Wells score and further diagnostic tests should be considered. Elevated D-Dimer levels can also be associated with DIC, neoplasm, , trauma and liver disease. Elevated levels of rheumatoid factor may lead to an overestimation of the D-Dimer level. Performed By: #### 4 8066-5 ####[facility] ([id number])[address] [place] [address] XR KNEE RT 1 OR 2 VWSon 05-15 XR KNEE RT 1 OR 2 VWS XR KNEE RT 1 OR 2 VWS History: Pain Exam/Technique: Frontal and lateral views of the right knee were obtained. Comparison: 01/17/2024 Findings: There has been interval placement of an intramedullary kateryna in the femur since the prior study. There is chondrocalcinosis of the menisci. There is no evidence for an acute osseous abnormalities. No joint effusions are seen. IMPRESSION: Intramedullary kateryna in the femur, new since previous examination dated 01/17/2024. Otherwise normal right knee Finalized by Jeff Womack MD on 06/03/2024 3:54 PM Normal [facility] Fibrin D-dimer DDU (PPP) [Ma ss/Vol]on 05-07-2024 D DIMER 260 ng/mL DDU High <[address] [facility] Comment on above: Result Comment: Results >=255ng/mL DDU: Results may be indicative of the presence of VTE. The use of the Wells score and further diagnostic tests should be considered. Elevated D-Dimer levels can also be associated with DIC, neoplasm, , trauma and liver disease. Elevated levels of rheumatoid factor may lead to an overestimation of the D-Dimer level. Performed By: #### 4 8066-5 ####[facility] ([id number])[address] [place] [address] XR HIP RT 2-3 VIEWS W OR WO PELVISon 05-07-2024 XR HIP RT 2-3 VIEWS W OR WO PELVIS XR HIP RT 2-3 VIEWS W OR WO PELVIS History: Right hip pain. . Exam/Technique: AP view the pelvis, AP and lateral views of the right hip Comparison: 04/18/2024 Findings: Long intramedullary kateryna with proximal and distal fixation including cerclage wire. No evidence of change in alignment, hardware failure or acute abnormality. IMPRESSION: * Uncomplicated appearance of right femur hardware. Finalized by Janak Trivedi DO on 05/07/2024 12:38 PM Normal [facility] XR FEMUR RT 2+ VIEWSon 04-18 XR FEMUR RT 2+ VIEWS XR FEMUR RT 2+ VIEW S Comparison March 14 XR FEMUR RT 2+ VIEWS Periprosthetic fracture of hip, subsequent encounter Impression: 1. Stable appearance of fracture morphology and transfixing hardware. Stable positioning and alignment. Finalized by Leonel Ferguson MD on 04/18/2024 5:45 PM Normal [facility] XR PELVIS 1 OR 2 VWSon 04-18 XR PELVIS 1 OR 2 VWS XR PELVIS 1 OR 2 VW S Comparison January 26 XR PELVIS 1 OR 2 VWS Closed displaced intertrochanteric fracture of right femur with routine healing, subsequent encounter Impression: 1. Stable appearance of fracture morphology and transfixing hardware. Stable positioning and alignment. Finalized by Leonel Ferguson MD on 04/18/2024 5:53 PM Normal [facility] XR FEMUR RT 2+ VIEWSon 03-15 XR FEMUR RT 2+ VIEWS XR FEMUR RT 2+ VIEW S Clinical history: Prosthetic fracture. Right femur: 03/14/2024 COMPARISON: 02/22/2024 FINDINGS: 2 views of the femur were obtained. 4 images are submitted. A long stem intramedullary nail extends to the distal femur. Interlocking screws are present with no gross hardware complication. The proximal femoral fracture is not well visualized but lucency remains visible with no gross malalignment. IMPRESSION: Status post internal fixation of the proximal femoral fracture with incomplete healing. No gross complication. Finalized by Jun Ortega MD on 03/15/2024 6:12 PM Normal [facility] CBC AND AUTO DIFFon 03-06-20 ABSOLUTE BASOPHIL 0.1 X10E9/L Normal 0.0-0.2 [facility] Comment on above: Performed By: #### C BCA, PINR, CMP #### [facility] ([id number]) [address] [place] [address], [place] [address] ABSOLUTE NEUTROPHIL 4.8 X10E9/L Normal 1.5-6.6 [facility] Comment on above: Performed By: #### C OSMEL AGUILAR, CMP #### [facility] ([id number]) [address] [place] [address] 68179 Basophils/100 WBC (Bld) 1.0 % Normal [facility] Comment on above: Performed By: #### C LAUREN PINR, CMP #### [facility] ([id number]) [address] [place] [address] 75748 Eosinophils (Bld) [#/Vol] 0.0 10*3/uL Normal 0.0-0.[address] [facility] Comment on above: Performed By: #### C LAUREN PINR, CMP #### [facility] ([id number]) [address] [place] [address] 93140 Eosinophils/100 WBC (Bld) 0.4 % Normal [facility] Comment on above: Performed By: #### C LAUREN PINR, CMP #### [facility] ([id number]) [address] [place] [address] 87885 Erythrocyte distribution width (RBC) [Ratio] 16.4 % High 11.5-15.[address] [facility] Comment on above: Performed By: #### C LAUREN PINR, CMP #### [facility] ([id number]) [address] [place] [address] 89228 Hematocrit (Bld) [Volume fraction] 40.7 % Normal 39-[address] [facility] Comment on above: Performed By: #### C LAUREN PINR, CMP #### [facility] ([id number]) [address] [place] [address] 98538 Hemoglobin (Bld) [Mass/Vol] 13.3 g/dL Normal 13.0-17.[address] [facility] Comment on above: Performed By: #### C LAUREN PINR, CMP #### [facility] ([id number]) [address] [place] [address] 89455 Lymphocytes (Bld) [#/Vol] 1.4 10*3/uL Normal 1.0-3.[address] [facility] Comment on above: Performed By: #### C LAUREN PINR, CMP #### [facility] ([id number]) [address] [place] [address] 48056 Lymphocytes/100 WBC (Bld) 20.6 % Normal [facility] Comment on above: Performed By: #### C LAUREN PINR, CMP #### [facility] ([id number]) [address] [place] [address] 41535 MCH (RBC) [Entitic mass] 28.2 pg Normal 27-[address] [facility] Comment on above: Performed By: #### C LAUREN PINR, CMP #### [facility] ([id number]) [address] [place] [address] 05112 MCHC (RBC) [Mass/Vol] 32.6 g/dL Normal 32-36 [facility] Comment on above: Performed By: #### C LAUREN PINR, CMP #### [facility] ([id number]) [address] [place] [address] 15501 MCV (RBC) [Entitic vol] 87 fL Normal 80-[address] [facility] Comment on above: Performed By: #### C LAUREN PINR, CMP #### [facility] ([id number]) [address] [place] [address] 83696 Monocytes (Bld) [#/Vol] 0.5 10*3/uL Normal 0-0.[address] [facility] Comment on above: Performed By: #### C LAUREN PINR, CMP #### [facility] ([id number]) [address] [place] [address] 63070 Monocytes/100 WBC (Bld) 7.2 % Normal [facility] Comment on above: Performed By: #### C LAUREN PINR, CMP #### [facility] ([id number]) [address] [place] [address] 74551 Neutrophils/100 WBC (Bld) 70.8 % Normal [facility] Comment on above: Performed By: #### C LAUREN PINR, CMP #### [facility] ([id number]) [address] [place] [address] 36426 Platelet mean volume (Bld) [Entitic vol] 11.4 fL Normal 7-[address] [facility] Comment on above: Performed By: #### C LAUREN PINR, CMP #### [facility] ([id number]) [address] [place] [address] 60895 Platelets (Bld) [#/Vol] 122 10*3/uL Low 150-[address] [facility] Comment on above: Performed By: #### C LAUREN PINR, CMP #### [facility] ([id number]) [address] [place] [address] 25486 RBC COUNT 4.71 X10E12/L Normal 4.10-5.[address] [facility] Comment on above: Performed By: #### C BCA, PINR, CMP #### [facility] ([id number]) [address] [place] [address] 89932 WBC (Bld) [#/Vol] 6.8 10*3/uL Normal 4.0-11.0 [facility] Comment on above: Performed By: #### C LAUREN, PINR, CMP #### [facility] ([id number]) [address] [place] [address] 36877 COMPREHENSIVE METABOLIC PANE Benito 03-06-2024 Albumin [Mass/Vol] 4.1 g/dL Normal 3.2-5.3 [facility] Comment on above: Performed By: #### C LAUREN PINR, CMP ####[facility] ([id number])[address] [place] [address], [place] [address] ALP [Catalytic activity/Vol] 75 U/L Normal 39-[address] [facility] Comment on above: Performed By: #### C BCA, PINR, CMP ####[facility] ([id number])[address] [place] [address], [place] [address] ALT [Catalytic activity/Vol] 6 U/L Normal 0-[address] [facility] Comment on above: Performed By: #### C BCA, PINR, CMP ####[facility] ([id number])[address] [place] [address] [place] [address] Anion gap [Moles/Vol] 9 mmol/L Normal 5-15 [facility] Comment on above: Performed By: #### C BCA, PINR, CMP ####[facility] ([id number])[address] [place] [address] [place] [address] AST [Catalytic activity/Vol] 17 U/L Normal 0-[address] [facility] Comment on above: Performed By: #### C BCA, PINR, CMP ####[facility] ([id number])[address] [place] [address], [place] [address] Bilirubin [Mass/Vol] 0.4 mg/dL Normal 0.3-1.2 [facility] Comment on above: Performed By: #### C BCA, PINR, CMP ####[facility] ([id number])[address] [place] [address] [place] [address] Calcium [Mass/Vol] 9.1 mg/dL Normal 8.5-10.5 [facility] Comment on above: Performed By: #### C BCA, PINR, CMP ####[facility] ([id number])[address] [place] [address], [place] [address] Chloride [Moles/Vol] 103 mmol/L Normal 98-109 [facility] Comment on above: Performed By: #### C OSMEL AGUILAR CMP ####[facility] ([id number])[address] [place] [address] 76088 CO2 [Moles/Vol] 25 mmol/L Normal 22-[address] [facility] Comment on above: Performed By: #### C OSMEL AGUILAR, CMP ####[facility] ([id number])[address] [place] [address]267 Creatinine [Mass/Vol] 0.71 mg/dL Normal 0.70-1.20 [facility] Comment on above: Result Comment: METH OD TRACEABLE TO IDMS STANDARD Performed By: #### C OSMEL AGUILAR CMP ####[facility] ([id number])[address] [place] [address] 32492 eGFR (CKD-EPI) NON-RACE DEPENDENT >90 Normal >[address] [facility] Comment on above: Result Comment: Reported eGFR is based on the CKD-EPI 2020 equation that does not use a race coefficient. Performed By: #### C OSMEL AGUILAR CMP ####[facility] ([id number])[address] [place] [address] 58615 Glucose [Mass/Vol] 170 mg/dL High 65-99 [facility] Comment on above: Performed By: #### C OSMEL AGUILAR CMP ####[facility] ([id number])[address] [place] [address] 20487 Potassium [Moles/Vol] 3.8 mmol/L Normal 3.5-5.0 [facility] Comment on above: Performed By: #### C OSMEL AGUILAR, CMP ####[facility] ([id number])[address] [place] [address] [place] [address] Protein [Mass/Vol] 7.3 g/dL Normal 6.0-8.0 [facility] Comment on above: Performed By: #### C LAUREN PINR, CMP ####[facility] ([id number])[address] [place] [address] 03925 Sodium [Moles/Vol] 137 mmol/L Normal 134-146 [facility] Comment on above: Performed By: #### C LAUREN PINR, CMP ####[facility] ([id number])[address] [place] [address] 28748 Urea nitrogen [Mass/Vol] 13 mg/dL Normal 5-[address] [facility] Comment on above: Performed By: #### C LAUREN PINR, CMP ####[facility] ([id number])[address] [place] [address] 64432 PROTIME AND INRon 03-06-2024 INR Coag (PPP) [Relative time] 1.0 {INR} Normal 0.8-1.[address] [facility] Comment on above: Performed By: #### C LAUREN PINR, CMP #### [facility] ([id number]) [address] [place] [address] 60995 PT Coag (PPP) [Time] 12.2 s Normal 9.8-13.2 [facility] Comment on above: Result Comment: NEW REFERENCE RANGE Performed By: #### C LAUREN PINR, CMP #### [facility] ([id number]) [address] [place] [address] 04005 XR FEMUR RT 2+ VIEWSon 02-22 XR FEMUR RT 2+ VIEWS XR FEMUR RT 2+ VIEW S Comparison February 08 XR FEMUR RT 2+ VIEWS Closed displaced intertrochanteric fracture of right femur with routine healing, subsequent encounter Impression: 1. Stable appearance of fracture morphology and transfixing hardware. Stable positioning and alignment. Finalized by Leonel Ferguson MD on 02/23/2024 12:36 PM Normal [facility] Glucose Glucometer (BldC) [M ass/Vol]on 02-09-2024 Glucose [Mass/Vol] 139 mg/dL High 65-99 [facility] Glucose [Mass/Vol] 112 mg/dL High 65-99 [facility] XR FEMUR RT 2+ VIEWSon 02-08 XR FEMUR RT 2+ VIEWS XR FEMUR RT 2+ VIEW S XR FEMUR RT 2+ VIEWS CLINICAL INFORMATION: Recent surgery for fracture. Pain. COMPARISON: 01/30/24. IMPRESSION: * Intramedullary nail stabilizing proximal femur fracture, anatomic alignment. Postoperative changes in the soft tissues. Finalized by Dionte Ocampo MD on 02/09/2024 10:30 AM Normal [facility] BASIC METABOLIC PANLon 02-07 Anion gap [Moles/Vol] 10 mmol/L Normal 5-15 [facility] Comment on above: Performed By: #### P INR, 69019-5, 4679-7, FEPR, 6793-4, 2132- 9, 2276-4, 2284-8, 2731-8, 76521-5 #### [facility] ([id number]) [address], [address] [place] [address] Calcium [Mass/Vol] 8.7 mg/dL Normal 8.5-10.5 [facility] Comment on above: Performed By: #### P INR, 63624-9, 4679-7, FEPR, 6793-4, 2132- 9, 2276-4, 2284-8, 2731-8, 29396-9 #### [facility] ([id number]) [address], [address] [place] [address] Chloride [Moles/Vol] 103 mmol/L Normal 98-109 [facility] Comment on above: Performed By: #### P INR, 03396-4, 4679-7, FEPR, 6793-4, 2132- 9, 2276-4, 2284-8, 2731-8, 78222-5 #### [facility] ([id number]) [address], [address] [place] [address] CO2 [Moles/Vol] 25 mmol/L Normal 22-32 [facility] Comment on above: Performed By: #### P INR, 29540-6, 4679-7, FEPR, 6793-4, 2132- 9, 2276-4, 2284-8, 2731-8, 78088-5 #### [facility] ([id number]) [address], [address] [place] [address] Creatinine [Mass/Vol] 0.63 mg/dL Normal 0.60-1.30 [facility] Comment on above: Result Comment: METH OD TRACEABLE TO IDMS STANDARD Performed By: #### P INR, 31271-0, 4679-7, FEPR, 6793-4, 2132-9, 2276-4, 2284-8, 2731-8, 61527-6 #### [facility] ([id number]) [address], [address] [place] [address] eGFR (CKD-EPI) NON-RACE DEPENDENT >90 Normal >59 [facility] Comment on above: Result Comment: Reported eGFR is based on the CKD-EPI 2020 equation that does not use a race coefficient. Performed By: #### P INR, 16152-8, 4679-7, FEPR, 6793-4, 2132-9, 2276-4, 2284-8, 2731-8, 72277-9 #### [facility] ([id number]) [address], [address] [place] [address] Glucose [Mass/Vol] 122 mg/dL High 65-99 [facility] Comment on above: Performed By: #### P INR, 91224-8, 4679-7, FEPR, 6793-4, 2132- 9, 2276-4, 2284-8, 2731-8, 08223-0 #### [facility] ([id number]) [address], [address] [place] [address] Potassium [Moles/Vol] 3.8 mmol/L Normal 3.5-5.0 [facility] Comment on above: Performed By: #### P INR, 14261-5, 4679-7, FEPR, 6793-4, 2132- 9, 2276-4, 2284-8, 2731-8, 05547-1 #### [facility] ([id number]) [address], [address] [place] [address] Sodium [Moles/Vol] 138 mmol/L Normal 134-146 [facility] Comment on above: Performed By: #### P INR, 68126-5, 4679-7, FEPR, 6793-4, 2132- 9, 2276-4, 2284-8, 2731-8, 23968-5 #### [facility] ([id number]) [address], [address] [place] [address] Urea nitrogen [Mass/Vol] 5 mg/dL Normal 5-23 [facility] Comment on above: Performed By: #### P INR, 86373-8, 4679-7, FEPR, 6793-4, 2132- 9, 2276-4, 2284-8, 2731-8, 77024-2 #### [facility] ([id number]) [address], [address] [place] [address] COMPLETE BLOOD COUNTon 02-07 Erythrocyte distribution width (RBC) [Ratio] 16.1 % High 11.5-15.0 [facility] Comment on above: Performed By: #### P INR, 06141-9, 4679-7, FEPR, 6793-4, 2132- 9, 2276-4, 2284-8, 2731-8, 25793-0 #### [facility] ([id number]) [address], [address] [place] [address] Hematocrit (Bld) [Volume fraction] 26.6 % Low 39-49 [facility] Comment on above: Performed By: #### P INR, 65394-6, 4679-7, FEPR, 6793-4, 2132- 9, 2276-4, 2284-8, 2731-8, 24764-7 #### [facility] ([id number]) [address], [address] [place] [address] Hemoglobin (Bld) [Mass/Vol] 8.9 g/dL Low 13.0-17.0 [facility] Comment on above: Performed By: #### P INR, 35909-8, 4679-7, FEPR, 6793-4, 2132- 9, 2276-4, 2284-8, 2731-8, 68704-5 #### [facility] ([id number]) [address] [facility], [address] [place] [address] MCH (RBC) [Entitic mass] 28.6 pg Normal 27-34 [facility] Comment on above: Performed By: #### P INR, 28356-7, 4679-7, FEPR, 6793-4, 2132- 9, 2276-4, 2284-8, 2731-8, 23223-5 #### [facility] ([id number]) [address] [facility], [address] [place] [address] MCHC (RBC) [Mass/Vol] 33.3 g/dL Normal 32-36 [facility] Comment on above: Performed By: #### P INR, 94484-2, 4679-7, FEPR, 6793-4, 2132- 9, 2276-4, 2284-8, 2731-8, 40830-3 #### [facility] ([id number]) [address], [address] [place] [address] MCV (RBC) [Entitic vol] 86 fL Normal 80-100 [facility] Comment on above: Performed By: #### P INR, 66592-2, 4679-7, FEPR, 6793-4, 2132- 9, 2276-4, 2284-8, 2731-8, 28968-1 #### [facility] ([id number]) [address], [address] [place] [address] Platelet mean volume (Bld) [Entitic vol] 9.4 fL Normal 7-12 [facility] Comment on above: Performed By: #### P INR, 55560-6, 4679-7, FEPR, 6793-4, 2132- 9, 2276-4, 2284-8, 2731-8, 76549-6 #### [facility] ([id number]) [address], [address] [place] [address] Platelets (Bld) [#/Vol] 202 10*3/uL Normal 150-450 [facility] Comment on above: Performed By: #### P INR, 47001-6, 4679-7, FEPR, 6793-4, 2132- 9, 2276-4, 2284-8, 2731-8, 66397-9 #### [facility] ([id number]) [address], [address] [place] [address] RBC COUNT 3.10 X10E12/L Low 4.10-5.70 [facility] Comment on above: Performed By: #### P INR, 15174-1, 4679-7, FEPR, 6793-4, 2132- 9, 2276-4, 2284-8, 2731-8, 02212-9 #### [facility] ([id number]) [address], [address] [place] [address] WBC (Bld) [#/Vol] 3.8 10*3/uL Low 4.0-11.0 [facility] Comment on above: Performed By: #### P INR, 11554-4, 4679-7, FEPR, 6793-4, 2132- 9, 2276-4, 2284-8, 2731-8, 88459-7 #### [facility] ([id number]) [address], [address] [place] [address] Glucose Glucometer (BldC) [M ass/Vol]on 02-08-2024 Glucose [Mass/Vol] 117 mg/dL High 65-99 [facility] Glucose [Mass/Vol] 121 mg/dL High 65-99 [facility] Glucose [Mass/Vol] 137 mg/dL High 65-99 [facility] Glucose [Mass/Vol] 134 mg/dL High 65-99 [facility] Glucose Glucometer (BldC) [M ass/Vol]on 02-07-2024 Glucose [Mass/Vol] 144 mg/dL High 65-99 [facility] Glucose [Mass/Vol] 154 mg/dL High 65-99 [facility] Glucose [Mass/Vol] 121 mg/dL High 65-99 [facility] Glucose [Mass/Vol] 176 mg/dL High 65-99 [facility] Glucose Glucometer (BldC) [M ass/Vol]on 02-06-2024 Glucose [Mass/Vol] 116 mg/dL High 65-99 [facility] Glucose [Mass/Vol] 100 mg/dL High 65-99 [facility] Glucose [Mass/Vol] 112 mg/dL High 65-99 [facility] Glucose [Mass/Vol] 118 mg/dL High 65-99 [facility] BASIC METABOLIC PANLon 02-04 Anion gap [Moles/Vol] 8 mmol/L Normal 5-15 [facility] Comment on above: Performed By: #### P INR, 00097-5, 4679-7, FEPR, 6793-4, 2132- 9, 2276-4, 2284-8, 2731-8, 10875-7 #### [facility] ([id number]) [address], [address] [place] [address] Calcium [Mass/Vol] 8.5 mg/dL Normal 8.5-10.5 [facility] Comment on above: Performed By: #### P INR, 26010-9, 4679-7, FEPR, 6793-4, 2132- 9, 2276-4, 2284-8, 2731-8, 77672-9 #### [facility] ([id number]) [address], [address] [place] [address] Chloride [Moles/Vol] 101 mmol/L Normal 98-109 [facility] Comment on above: Performed By: #### P INR, 42614-0, 4679-7, FEPR, 6793-4, 2132- 9, 2276-4, 2284-8, 2731-8, 79076-5 #### [facility] ([id number]) [address], [address] [place] [address] CO2 [Moles/Vol] 28 mmol/L Normal 22-32 [facility] Comment on above: Performed By: #### P INR, 24383-5, 4679-7, FEPR, 6793-4, 2132- 9, 2276-4, 2284-8, 2731-8, 79632-2 #### [facility] ([id number]) [address], [address] [place] [address] Creatinine [Mass/Vol] 0.60 mg/dL Normal 0.60-1.30 [facility] Comment on above: Result Comment: METH OD TRACEABLE TO IDMS STANDARD Performed By: #### P INR, 55879-8, 4679-7, FEPR, 6793-4, 2132-9, 2276-4, 2284-8, 2731-8, 76381-8 #### [facility] ([id number]) [address], [address] [place] [address] eGFR (CKD-EPI) NON-RACE DEPENDENT >90 Normal >59 [facility] Comment on above: Result Comment: Reported eGFR is based on the CKD-EPI 2020 equation that does not use a race coefficient. Performed By: #### P INR, 39252-9, 4679-7, FEPR, 6793-4, 2132-9, 2276-4, 2284-8, 2731-8, 43988-7 #### [facility] ([id number]) [address], [address] [place] [address] Glucose [Mass/Vol] 130 mg/dL High 65-99 [facility] Comment on above: Performed By: #### P INR, 20958-2, 4679-7, FEPR, 6793-4, 2132- 9, 2276-4, 2284-8, 2731-8, 32742-8 #### [facility] ([id number]) [address], [address] [place] [address] Potassium [Moles/Vol] 3.5 mmol/L Normal 3.5-5.0 [facility] Comment on above: Performed By: #### P INR, 49814-3, 4679-7, FEPR, 6793-4, 2132- 9, 2276-4, 2284-8, 2731-8, 92615-3 #### [facility] ([id number]) [address], [address] [place] [address] Sodium [Moles/Vol] 137 mmol/L Normal 134-146 [facility] Comment on above: Performed By: #### P INR, 91699-9, 4679-7, FEPR, 6793-4, 2132- 9, 2276-4, 2284-8, 2731-8, 50777-3 #### [facility] ([id number]) [address], [address] [place] [address] Urea nitrogen [Mass/Vol] 6 mg/dL Normal 5-23 [facility] Comment on above: Performed By: #### P INR, 33397-4, 4679-7, FEPR, 6793-4, 2132- 9, 2276-4, 2284-8, 2731-8, 58173-2 #### [facility] ([id number]) [address], [address] [place] [address] COMPLETE BLOOD COUNTon 02-04 Erythrocyte distribution width (RBC) [Ratio] 15.9 % High 11.5-15.0 [facility] Comment on above: Performed By: #### P INR, 46970-5, 4679-7, FEPR, 6793-4, 2132- 9, 2276-4, 2284-8, 2731-8, 50485-2 #### [facility] ([id number]) [address], [address] [place] [address] Hematocrit (Bld) [Volume fraction] 27.6 % Low 39-49 [facility] Comment on above: Performed By: #### P INR, 52315-2, 4679-7, FEPR, 6793-4, 2132- 9, 2276-4, 2284-8, 2731-8, 00768-6 #### [facility] ([id number]) [address], [address] [place] [address] Hemoglobin (Bld) [Mass/Vol] 9.2 g/dL Low 13.0-17.0 [facility] Comment on above: Performed By: #### P INR, 24083-5, 4679-7, FEPR, 6793-4, 2132- 9, 2276-4, 2284-8, 2731-8, 34998-6 #### [facility] ([id number]) [address], [address] [place] [address] MCH (RBC) [Entitic mass] 28.5 pg Normal 27-34 [facility] Comment on above: Performed By: #### P INR, 38854-6, 4679-7, FEPR, 6793-4, 2132- 9, 2276-4, 2284-8, 2731-8, 37968-8 #### [facility] ([id number]) [address], [address] [place] [address] MCHC (RBC) [Mass/Vol] 33.5 g/dL Normal 32-36 [facility] Comment on above: Performed By: #### P INR, 80553-7, 4679-7, FEPR, 6793-4, 2132- 9, 2276-4, 2284-8, 2731-8, 75181-6 #### [facility] ([id number]) [address], [address] [place] [address] MCV (RBC) [Entitic vol] 85 fL Normal 80-100 [facility] Comment on above: Performed By: #### P INR, 81166-4, 4679-7, FEPR, 6793-4, 2132- 9, 2276-4, 2284-8, 2731-8, 21887-2 #### [facility] ([id number]) [address], [address] [place] [address] Platelet mean volume (Bld) [Entitic vol] 9.5 fL Normal 7-12 [facility] Comment on above: Performed By: #### P INR, 61112-1, 4679-7, FEPR, 6793-4, 2132- 9, 2276-4, 2284-8, 2731-8, 03473-5 #### [facility] ([id number]) [address], [address] [place] [address] Platelets (Bld) [#/Vol] 215 10*3/uL Normal 150-450 [facility] Comment on above: Performed By: #### P INR, 50708-0, 4679-7, FEPR, 6793-4, 2132- 9, 2276-4, 2284-8, 2731-8, 90975-0 #### [facility] ([id number]) [address], [address] [place] [address] RBC COUNT 3.25 X10E12/L Low 4.10-5.70 [facility] Comment on above: Performed By: #### P INR, 56762-4, 4679-7, FEPR, 6793-4, 2132- 9, 2276-4, 2284-8, 2731-8, 97103-1 #### [facility] ([id number]) [address], [address] [place] [address] WBC (Bld) [#/Vol] 4.9 10*3/uL Normal 4.0-11.0 [facility] Comment on above: Performed By: #### P INR, 59150-6, 4679-7, FEPR, 6793-4, 2- 9, 2276-4, 2284-8, 2731-8, 60784-4 #### [facility] ([id number]) [address], [address] [place] [address] Glucose Glucometer (BldC) [M ass/Vol]on 02-05-2024 Glucose [Mass/Vol] 95 mg/dL Normal 65-99 [facility] Glucose [Mass/Vol] 102 mg/dL High 65-99 [facility] Glucose [Mass/Vol] 143 mg/dL High 65-99 [facility] Glucose [Mass/Vol] 156 mg/dL High 65-99 [facility] COMPLETE BLOOD COUNTon 02-03 Erythrocyte distribution width (RBC) [Ratio] 15.8 % High 11.5-15.0 [facility] Comment on above: Performed By: #### P INR, 11483-7, 4679-7, FEPR, 6793-4, 2131- 9, 2276-4, 2284-8, 2731-8, 35528-1 #### [facility] ([id number]) [address], [address] [place] [address] Hematocrit (Bld) [Volume fraction] 31.7 % Low 39-49 [facility] Comment on above: Performed By: #### P INR, 64573-7, 4679-7, FEPR, 6793-4, 2132- 9, 2276-4, 2284-8, 2731-8, 23067-9 #### [facility] ([id number]) [address], [address] [place] [address] Hemoglobin (Bld) [Mass/Vol] 10.6 g/dL Low 13.0-17.0 [facility] Comment on above: Performed By: #### P INR, 83944-6, 4679-7, FEPR, 6793-4, 2132- 9, 2276-4, 2284-8, 2731-8, 25445-5 #### [facility] ([id number]) [address], [address] [place] [address] MCH (RBC) [Entitic mass] 28.2 pg Normal 27-34 [facility] Comment on above: Performed By: #### P INR, 74583-2, 4679-7, FEPR, 6793-4, 2132- 9, 2276-4, 2284-8, 2731-8, 18038-2 #### [facility] ([id number]) [address], [address] [place] [address] MCHC (RBC) [Mass/Vol] 33.4 g/dL Normal 32-36 [facility] Comment on above: Performed By: #### P INR, 00177-2, 4679-7, FEPR, 6793-4, 2132- 9, 2276-4, 2284-8, 2731-8, 92808-0 #### [facility] ([id number]) [address], [address] [place] [address] MCV (RBC) [Entitic vol] 85 fL Normal 80-100 [facility] Comment on above: Performed By: #### P INR, 52194-6, 4679-7, FEPR, 6793-4, 2132- 9, 2276-4, 2284-8, 2731-8, 46083-4 #### [facility] ([id number]) [address], [address] [place] [address] Platelet mean volume (Bld) [Entitic vol] 9.6 fL Normal 7-12 [facility] Comment on above: Performed By: #### P INR, 25298-2, 4679-7, FEPR, 6793-4, 2132- 9, 2276-4, 2284-8, 2731-8, 48015-7 #### [facility] ([id number]) [address], [address] [place] [address] Platelets (Bld) [#/Vol] 314 10*3/uL Normal 150-450 [facility] Comment on above: Performed By: #### P INR, 61457-6, 4679-7, FEPR, 6793-4, 2132- 9, 2276-4, 2284-8, 2731-8, 77665-5 #### [facility] ([id number]) [address], [address] [place] [address] RBC COUNT 3.74 X10E12/L Low 4.10-5.70 [facility] Comment on above: Performed By: #### P INR, 46446-5, 4679-7, FEPR, 6793-4, 2132- 9, 2276-4, 2284-8, 2731-8, 43050-1 #### [facility] ([id number]) [address], [address] [place] [address] WBC (Bld) [#/Vol] 6.6 10*3/uL Normal 4.0-11.0 [facility] Comment on above: Performed By: #### P INR, 22339-6, 4679-7, FEPR, 6793-4, 2132- 9, 2276-4, 2284-8, 2731-8, 44996-8 #### [facility] ([id number]) [address], [address] [place] [address] COMPREHENSIVE METABOLIC PANE Benito 02-04-2024 Albumin [Mass/Vol] 3.4 g/dL Normal 3.2-5.3 [facility] Comment on above: Performed By: #### P INR, 69519-2, 4679-7, FEPR, 6793-4, 2132- 9, 2276-4, 2284-8, 2731-8, 80868-8 #### [facility] ([id number]) [address], [address] [place] [address] ALP [Catalytic activity/Vol] 88 U/L Normal 39-130 [facility] Comment on above: Performed By: #### P INR, 44795-4, 4679-7, FEPR, 6793-4, 2132- 9, 2276-4, 2284-8, 2731-8, 46203-5 #### [facility] ([id number]) [address], [address] [place] [address] ALT [Catalytic activity/Vol] 11 U/L Normal 0-40 [facility] Comment on above: Performed By: #### P INR, 96767-6, 4679-7, FEPR, 6793-4, 2132- 9, 2276-4, 2284-8, 2731-8, 70196-0 #### [facility] ([id number]) [address], [address] [place] [address] Anion gap [Moles/Vol] 12 mmol/L Normal 5-15 [facility] Comment on above: Performed By: #### P INR, 58806-3, 4679-7, FEPR, 6793-4, 2132- 9, 2276-4, 2284-8, 2731-8, 26197-2 #### [facility] ([id number]) [address], [address] [place] [address] AST [Catalytic activity/Vol] 17 U/L Normal 0-41 [facility] Comment on above: Performed By: #### P INR, 87716-0, 4679-7, FEPR, 6793-4, 2132- 9, 2276-4, 2284-8, 2731-8, 02114-8 #### [facility] ([id number]) [address], [address] [place] [address] Bilirubin [Mass/Vol] 1.5 mg/dL High 0.3-1.2 [facility] Comment on above: Performed By: #### P INR, 96551-4, 4679-7, FEPR, 6793-4, 2132- 9, 2276-4, 2284-8, 2731-8, 94688-5 #### [facility] ([id number]) [address], [address] [place] [address] Calcium [Mass/Vol] 9.1 mg/dL Normal 8.5-10.5 [facility] Comment on above: Performed By: #### P INR, 88946-6, 4679-7, FEPR, 6793-4, 2132- 9, 2276-4, 2284-8, 2731-8, 27480-1 #### [facility] ([id number]) [address], [address] [place] [address] Chloride [Moles/Vol] 98 mmol/L Normal 98-109 [facility] Comment on above: Performed By: #### P INR, 61547-0, 4679-7, FEPR, 6793-4, 2132- 9, 2276-4, 2284-8, 2731-8, 91041-6 #### [facility] ([id number]) [address] [place] [address] CO2 [Moles/Vol] 27 mmol/L Normal 22-32 [facility] Comment on above: Performed By: #### P INR, 54228-3, 4679-7, FEPR, 6793-4, 2132- 9, 2276-4, 2284-8, 2731-8, 75221-2 #### [facility] ([id number]) [address], [address] [place] [address] Creatinine [Mass/Vol] 0.65 mg/dL Normal 0.60-1.30 [facility] Comment on above: Result Comment: METH OD TRACEABLE TO IDMS STANDARD Performed By: #### P INR, 43836-4, 4679-7, FEPR, 6793-4, 2132-9, 2276-4, 2284-8, 2731-8, 91618-3 #### [facility] ([id number]) [address], [address] [place] [address] eGFR (CKD-EPI) NON-RACE DEPENDENT >90 Normal >59 [facility] Comment on above: Result Comment: Reported eGFR is based on the CKD-EPI 2020 equation that does not use a race coefficient. Performed By: #### P INR, 92575-9, 4679-7, FEPR, 6793-4, 2132-9, 2276-4, 2284-8, 2731-8, 68265-2 #### [facility] ([id number]) [address], [address] [place] [address] Glucose [Mass/Vol] 151 mg/dL High 65-99 [facility] Comment on above: Performed By: #### P INR, 61128-2, 4679-7, FEPR, 6793-4, 2132- 9, 2276-4, 2284-8, 2731-8, 82736-5 #### [facility] ([id number]) [address], [address] [place] [address] Potassium [Moles/Vol] 3.6 mmol/L Normal 3.5-5.0 [facility] Comment on above: Performed By: #### P INR, 34915-5, 4679-7, FEPR, 6793-4, 2132- 9, 2276-4, 2284-8, 2731-8, 43971-0 #### [facility] ([id number]) [address], [address] [place] [address] Protein [Mass/Vol] 6.5 g/dL Normal 6.0-8.0 [facility] Comment on above: Performed By: #### P INR, 92349-1, 4679-7, FEPR, 6793-4, 2132- 9, 2276-4, 2284-8, 2731-8, 18710-3 #### [facility] ([id number]) [address], [address] [place] [address] Sodium [Moles/Vol] 137 mmol/L Normal 134-146 [facility] Comment on above: Performed By: #### P INR, 46695-8, 4679-7, FEPR, 6793-4, 2132- 9, 2276-4, 2284-8, 2731-8, 29090-6 #### [facility] ([id number]) [address], [address] [place] [address] Urea nitrogen [Mass/Vol] 10 mg/dL Normal - [facility] Comment on above: Performed By: #### P INR, 73848-0, 4679-7, FEPR, 6793-4, 2132- 9, 2276-4, 2284-8, 2731-8, 75706-0 #### [facility] ([id number]) [address], [address] [place] [address] Glucose Glucometer (BldC) [M ass/Vol]on 02-04-2024 Glucose [Mass/Vol] 104 mg/dL High 65-99 [facility] Glucose [Mass/Vol] 240 mg/dL High 65-99 [facility] Glucose [Mass/Vol] 157 mg/dL High 65-99 [facility] Glucose [Mass/Vol] 163 mg/dL High 65-99 [facility] Lipid 1996 panelon Cholesterol [Mass/Vol] 148 mg/dL Low 150-200 [facility] Comment on above: Performed By: #### P INR, 10700-4, 4679-7, FEPR, 6793-4, 2132- 9, 2276-4, 2284-8, 2731-8, 80227-7 #### [facility] ([id number]) [address], [address] [place] [address] Cholesterol in HDL [Mass/Vol] 19 mg/dL Low >39 [facility] Comment on above: Result Comment: HDL <40 mg/dL - High Risk HDL > or = 40mg/dL- Desirable HDL >60 mg/dL - Negative Risk Performed By: #### P INR, 73030-5, 4679-7, FEPR, 6793-4, 213-9, 2276-4, 2284-8, 2731-8, 62888-4 #### [facility] ([id number]) [address], [address] [place] [address] Cholesterol in LDL [Mass/Vol] 80 mg/dL Normal <130 [facility] Comment on above: Result Comment: LDL <100 mg/dL - Desirable LDL >160 mg/dL - High Risk Performed By: #### P INR, 24899-7, 4679-7, FEPR, 6793-4, 2-9, 2276-4, 2284-8, 2731-8, 12994-3 #### [facility] ([id number]) [address], [address] [place] [address] Cholesterol in VLDL [Mass/Vol] 49 mg/dL High 0-30 [facility] Comment on above: Performed By: #### P INR, 18738-6, 4679-7, FEPR, 6793-4, 2132- 9, 2276-4, 2284-8, 2731-8, 32465-1 #### [facility] ([id number]) [address], [address] [place] [address] CHOLESTEROL:HDL 7.8 High 1.0-5.0 [facility] Comment on above: Performed By: #### P INR, 52168-5, 4679-7, FEPR, 6793-4, 2132- 9, 2276-4, 2284-8, 2731-8, 40759-4 #### [facility] ([id number]) [address], [address] [place] [address] Triglyceride [Mass/Vol] 244 mg/dL High 27-150 [facility] Comment on above: Performed By: #### P INR, 08277-9, 4679-7, FEPR, 6793-4, 2132- 9, 2276-4, 2284-8, 2731-8, 28574-7 #### [facility] ([id number]) [address], [address] [place] [address] MAGNESIUMon 02-04-2024 Magnesium [Mass/Vol] 1.5 mg/dL Low 1.8-2.6 [facility] Comment on above: Performed By: #### P INR, 82858-2, 4679-7, FEPR, 6793-4, 2132- 9, 2276-4, 2284-8, 2731-8, 32273-5 #### [facility] ([id number]) [address], [address] [place] [address] BASIC METABOLIC PANLon 02-02 Anion gap [Moles/Vol] 10 mmol/L Normal 5-15 [facility] Comment on above: Performed By: #### P INR, 28189-2, 4679-7, FEPR, 6793-4, 2132- 9, 2276-4, 2284-8, 2731-8, 70584-1 #### [facility] ([id number]) [address], [address] [place] [address] Calcium [Mass/Vol] 8.8 mg/dL Normal 8.5-10.5 [facility] Comment on above: Performed By: #### P INR, 52545-6, 4679-7, FEPR, 6793-4, 2132- 9, 2276-4, 2284-8, 2731-8, 25313-6 #### [facility] ([id number]) [address], [address] [place] [address] Chloride [Moles/Vol] 98 mmol/L Normal 98-109 [facility] Comment on above: Performed By: #### P INR, 68416-8, 4679-7, FEPR, 6793-4, 2132- 9, 2276-4, 2284-8, 2731-8, 23791-0 #### [facility] ([id number]) [address], [address] [place] [address] CO2 [Moles/Vol] 26 mmol/L Normal 22-32 [facility] Comment on above: Performed By: #### P INR, 91175-4, 4679-7, FEPR, 6793-4, 2132- 9, 2276-4, 2284-8, 2731-8, 64652-1 #### [facility] ([id number]) [address], [address] [place] [address] Creatinine [Mass/Vol] 0.59 mg/dL Low 0.60-1.30 [facility] Comment on above: Result Comment: METH OD TRACEABLE TO IDMS STANDARD Performed By: #### P INR, 94787-5, 4679-7, FEPR, 6793-4, 2132-9, 2276-4, 2284-8, 2731-8, 28588-1 #### [facility] ([id number]) [address], [address] [place] [address] eGFR (CKD-EPI) NON-RACE DEPENDENT >90 Normal >59 [facility] Comment on above: Result Comment: Reported eGFR is based on the CKD-EPI 2020 equation that does not use a race coefficient. Performed By: #### P INR, 65168-2, 4679-7, FEPR, 6793-4, 2132-9, 2276-4, 2284-8, 2731-8, 39165-7 #### [facility] ([id number]) [address], [address] [place] [address] Glucose [Mass/Vol] 156 mg/dL High 65-99 [facility] Comment on above: Performed By: #### P INR, 27353-9, 4679-7, FEPR, 6793-4, 2132- 9, 2276-4, 2284-8, 2731-8, 35678-4 #### [facility] ([id number]) [address], [address] [place] [address] Potassium [Moles/Vol] 3.7 mmol/L Normal 3.5-5.0 [facility] Comment on above: Performed By: #### P INR, 40926-1, 4679-7, FEPR, 6793-4, 2132- 9, 2276-4, 2284-8, 2731-8, 47860-7 #### [facility] ([id number]) [address], [address] [place] [address] Sodium [Moles/Vol] 134 mmol/L Normal 134-146 [facility] Comment on above: Performed By: #### P INR, 38700-9, 4679-7, FEPR, 6793-4, 2132- 9, 2276-4, 2284-8, 2731-8, 27469-4 #### [facility] ([id number]) [address], [address] [place] [address] Urea nitrogen [Mass/Vol] 11 mg/dL Normal 5-23 [facility] Comment on above: Performed By: #### P INR, 44477-2, 4679-7, FEPR, 6793-4, 2- 9, 2276-4, 2284-8, 2731-8, 42493-1 #### [facility] ([id number]) [address], [address] [place] [address] Basic Metabolic Panelon 01-13 Anion gap [Moles/Vol] 10 mmol/L 5 - 15 mmol/L [facility] Calcium [Mass/Vol] 8.8 mg/dL 8.5 - 10. 5 mg/dL [facility] Chloride [Moles/Vol] 98 mmol/L 98 - 10 9 mmol/L [facility] CO2 [Moles/Vol] 26 mmol/L 22 - 32 mmol/L [facility] Creatinine [Mass/Vol] 0.59 mg/dL Low 0.60 - 1.30 mg/dL [facility] Comment on above: METHOD TRACEABLE TO [facility] STANDARD eGFR (CKD-EPI)non-race dependent - PINF [facility] Comment on above: Reported eGFR is based on the CKD-EPI 2020 equation that does not use a race coefficient. Glucose [Mass/Vol] 156 mg/dL High 65 - 99 mg/dL [facility] Interpretation and review of laboratory results Abnormal [facility] Potassium [Moles/Vol] 3.7 mmol/L 3.5 - 5.0 mmol/L [facility] Sodium [Moles/Vol] 134 mmol/L 134 - 146 mmol/L [facility] Urea nitrogen [Mass/Vol] 11 mg/dL 5 - 23 mg/dL [facility] CBC AND AUTO DIFFon 02-03-20 ABSOLUTE BASOPHIL 0.1 X10E9/L Normal 0.0-0.2 [facility] Comment on above: Performed By: #### P INR, 06632-1, 4679-7, FEPR, 6793-4, 2132- 9, 2276-4, 2284-8, 2731-8, 48278-0 #### [facility] ([id number]) [address], [address] [place] [address] ABSOLUTE NEUTROPHIL 4.5 X10E9/L Normal 1.5-6.6 [facility] Comment on above: Performed By: #### P INR, 63750-1, 4679-7, FEPR, 6793-4, 2132- 9, 2276-4, 2284-8, 2731-8, 91436-8 #### [facility] ([id number]) [address], [address] [place] [address] Basophils/100 WBC (Bld) 0.9 % Normal [facility] Comment on above: Performed By: #### P INR, 87026-0, 4679-7, FEPR, 6793-4, 2132- 9, 2276-4, 2284-8, 2731-8, 98984-1 #### [facility] ([id number]) [address], [address] [place] [address] Eosinophils (Bld) [#/Vol] 0.1 10*3/uL Normal 0.0-0.4 [facility] Comment on above: Performed By: #### P INR, 65300-2, 4679-7, FEPR, 6793-4, 2132- 9, 2276-4, 2284-8, 2731-8, 14675-6 #### [facility] ([id number]) [address], [address] [place] [address] Eosinophils/100 WBC (Bld) 0.8 % Normal [facility] Comment on above: Performed By: #### P INR, 22070-6, 4679-7, FEPR, 6793-4, 2132- 9, 2276-4, 2284-8, 2731-8, 64225-9 #### [facility] ([id number]) [address], [address] [place] [address] Erythrocyte distribution width (RBC) [Ratio] 15.8 % High 11.5-15.0 [facility] Comment on above: Performed By: #### P INR, 91428-3, 4679-7, FEPR, 6793-4, 2132- 9, 2276-4, 2284-8, 2731-8, 38160-4 #### [facility] ([id number]) [address], [address] [place] [address] Hematocrit (Bld) [Volume fraction] 29.1 % Low 39-49 [facility] Comment on above: Performed By: #### P INR, 48540-5, 4679-7, FEPR, 6793-4, 2132- 9, 2276-4, 2284-8, 2731-8, 50211-4 #### [facility] ([id number]) [address], [address] [place] [address] Hemoglobin (Bld) [Mass/Vol] 9.9 g/dL Low 13.0-17.0 [facility] Comment on above: Performed By: #### P INR, 40718-5, 4679-7, FEPR, 6793-4, 2132- 9, 2276-4, 2284-8, 2731-8, 11117-8 #### [facility] ([id number]) [address], [address] [place] [address] Lymphocytes (Bld) [#/Vol] 1.2 10*3/uL Normal 1.0-3.5 [facility] Comment on above: Performed By: #### P INR, 25089-2, 4679-7, FEPR, 6793-4, 2132- 9, 2276-4, 2284-8, 2731-8, 96972-1 #### [facility] ([id number]) [address], [address] [place] [address] Lymphocytes/100 WBC (Bld) 18.3 % Normal [facility] Comment on above: Performed By: #### P INR, 80964-4, 4679-7, FEPR, 6793-4, 2132- 9, 2276-4, 2284-8, 2731-8, 30935-7 #### [facility] ([id number]) [address], [address] [place] [address] MCH (RBC) [Entitic mass] 28.5 pg Normal 27-34 [facility] Comment on above: Performed By: #### P INR, 14144-5, 4679-7, FEPR, 6793-4, 2132- 9, 2276-4, 2284-8, 2731-8, 15398-8 #### [facility] ([id number]) [address], [address] [place] [address] MCHC (RBC) [Mass/Vol] 33.9 g/dL Normal 32-36 [facility] Comment on above: Performed By: #### P INR, 49539-9, 4679-7, FEPR, 6793-4, 2132- 9, 2276-4, 2284-8, 2731-8, 62383-0 #### [facility] ([id number]) [address], [address] [place] [address] MCV (RBC) [Entitic vol] 84 fL Normal 80-100 [facility] Comment on above: Performed By: #### P INR, 93935-7, 4679-7, FEPR, 6793-4, 2132- 9, 2276-4, 2284-8, 2731-8, 96743-1 #### [facility] [facility] ([id number]) [address], [address] [place] [address] Monocytes (Bld) [#/Vol] 0.7 10*3/uL Normal 0-0.9 [facility] Comment on above: Performed By: #### P INR, 12379-4, 4679-7, FEPR, 6793-4, 2132- 9, 2276-4, 2284-8, 2731-8, 66644-9 #### [facility] ([id number]) [address], [address] [place] [address] Monocytes/100 WBC (Bld) 10.2 % Normal [facility] Comment on above: Performed By: #### P INR, 71746-9, 4679-7, FEPR, 6793-4, 2132- 9, 2276-4, 2284-8, 2731-8, 56811-9 #### [facility] ([id number]) [address], [address] [place] [address] Neutrophils/100 WBC (Bld) 69.8 % Normal [facility] Comment on above: Performed By: #### P INR, 09045-9, 4679-7, FEPR, 6793-4, 2132- 9, 2276-4, 2284-8, 2731-8, 61037-0 #### [facility] ([id number]) [address], [address] [place] [address] Platelet mean volume (Bld) [Entitic vol] 9.8 fL Normal 7-12 [facility] Comment on above: Performed By: #### P INR, 79746-2, 4679-7, FEPR, 6793-4, 2132- 9, 2276-4, 2284-8, 2731-8, 84336-4 #### [facility] ([id number]) [address], [address] [place] [address] Platelets (Bld) [#/Vol] 238 10*3/uL Normal 150-450 [facility] Comment on above: Performed By: #### P INR, 95159-4, 4679-7, FEPR, 6793-4, 2132- 9, 2276-4, 2284-8, 2731-8, 19709-2 #### [facility] ([id number]) [address], [address] [place] [address] RBC COUNT 3.46 X10E12/L Low 4.10-5.70 [facility] Comment on above: Performed By: #### P INR, 90107-2, 4679-7, FEPR, 6793-4, 2132- 9, 2276-4, 2284-8, 2731-8, 12915-6 #### [facility] ([id number]) [address], [address] [place] [address] WBC (Bld) [#/Vol] 6.4 10*3/uL Normal 4.0-11.0 [facility] Comment on above: Performed By: #### P INR, 63904-7, 4679-7, FEPR, 6793-4, 2132- 9, 2276-4, 2284-8, 2731-8, 65974-0 #### [facility] ([id number]) [address] [address], [address] [place] [address] CBC auto differentialon 01-13 Basophils (Bld) [#/Vol] 0.1 10*3/uL [facility] Basophils/100 WBC (Bld) 0.9 % [facility] Eosinophils (Bld) [#/Vol] 0.1 10*3/uL [facility] Eosinophils/100 WBC (Bld) 0.8 % [facility] Erythrocyte distribution width (RBC) [Ratio] 15.8 % High 11.5 - 15.0 % [facility] Hematocrit (Bld) [Volume fraction] 29.1 % Low 39 - 49 % [facility] Hemoglobin (Bld) [Mass/Vol] 9.9 g/dL Low 13.0 - 17.0 g/dL [facility] Interpretation and review of laboratory results Abnormal [facility] Lymphocytes (Bld) [#/Vol] 1.2 10*3/uL [facility] Lymphocytes/100 WBC (Bld) 18.3 % [facility] MCH (RBC) [Entitic mass] 28.5 pg 27 - 34 pg [facility] MCHC (RBC) [Mass/Vol] 33.9 g/dL 32 - 3 6 g/dL [facility] MCV (RBC) [Entitic vol] 84 fL 80 - 100 fL [facility] Monocytes (Bld) [#/Vol] 0.7 10*3/uL [facility] Monocytes/100 WBC (Bld) 10.2 % [facility] Neutrophils (Bld) [#/Vol] 4.5 10*3/uL [facility] Neutrophils/100 WBC (Bld) 69.8 % [facility] Platelet mean volume (Bld) [Entitic vol] 9.8 fL 7 - 12 fL [facility] Platelets (Bld) [#/Vol] 238 10*3/uL [facility] RBC (Bld) [#/Vol] 3.46 10*6/uL Low [facility] WBC corrected for nucl RBC Auto (Bld) [#/Vol] 6.4 [facility] Glucose Glucometer (BldC) [M ass/Vol]on 02-03-2024 Glucose [Mass/Vol] 137 mg/dL High 65-99 [facility] Glucose [Mass/Vol] 133 mg/dL High 65-99 [facility] Glucose [Mass/Vol] 168 mg/dL High 65 - 99 mg/dL [facility] Interpretation and review of laboratory results Abnormal [facility] Glucose [Mass/Vol] 168 mg/dL High 65-99 [facility] BASIC METABOLIC PANLon 02-01 Anion gap [Moles/Vol] 11 mmol/L Normal 5-15 [facility] Comment on above: Performed By: #### P INR, 69301-1, 4679-7, FEPR, 6793-4, 2132- 9, 2276-4, 2284-8, 2731-8, 55628-8 #### [facility] ([id number]) [address], [address] [place] [address] Calcium [Mass/Vol] 9.3 mg/dL Normal 8.5-10.5 [facility] Comment on above: Performed By: #### P INR, 80583-3, 4679-7, FEPR, 6793-4, 2132- 9, 2276-4, 2284-8, 2731-8, 40402-9 #### [facility] ([id number]) [address], [address] [place] [address] Chloride [Moles/Vol] 98 mmol/L Normal 98-109 [facility] Comment on above: Performed By: #### P INR, 44593-2, 4679-7, FEPR, 6793-4, 2132- 9, 2276-4, 2284-8, 2731-8, 19689-5 #### [facility] ([id number]) [address], [address] [place] [address] CO2 [Moles/Vol] 27 mmol/L Normal 22-32 [facility] Comment on above: Performed By: #### P INR, 72881-6, 4679-7, FEPR, 6793-4, 2132- 9, 2276-4, 2284-8, 2731-8, 27774-7 #### [facility] ([id number]) [address], [address] [place] [address] Creatinine [Mass/Vol] 0.63 mg/dL Normal 0.60-1.30 [facility] Comment on above: Result Comment: METH OD TRACEABLE TO IDMS STANDARD Performed By: #### P INR, 54225-2, 4679-7, FEPR, 6793-4, 2132-9, 2276-4, 2284-8, 2731-8, 11406-4 #### [facility] ([id number]) [address], [address] [place] [address] METHOD TRACEABLE TO IDMS STANDARD Glucose [Mass/Vol] 143 mg/dL High 65-99 [facility] Comment on above: Performed By: #### P INR, 27422-0, 4679-7, FEPR, 6793-4, 2132- 9, 2276-4, 2284-8, 2731-8, 48164-6 #### [facility] ([id number]) [address], [address] [place] [address] Potassium [Moles/Vol] 3.9 mmol/L Normal 3.5-5.0 [facility] Comment on above: Performed By: #### P INR, 38360-1, 4679-7, FEPR, 6793-4, 2132- 9, 2276-4, 2284-8, 2731-8, 95779-4 #### [facility] ([id number]) [address], [address] [place] [address] Sodium [Moles/Vol] 136 mmol/L Normal 134-146 [facility] Comment on above: Performed By: #### P INR, 85509-5, 4679-7, FEPR, 6793-4, 2132- 9, 2276-4, 2284-8, 2731-8, 63429-6 #### [facility] ([id number]) [address], [address] [place] [address] Urea nitrogen [Mass/Vol] 14 mg/dL Normal 5-23 [facility] Comment on above: Performed By: #### P INR, 67391-8, 4679-7, FEPR, 6793-4, 2132- 9, 2276-4, 2284-8, 2731-8, 57708-6 #### [facility] ([id number]) [address], [address] [place] [address] eGFR (CKD-EPI) NON-RACE DEPENDENT >90 Normal >59 [facility] Comment on above: Result Comment: Reported eGFR is based on the CKD-EPI 2020 equation that does not use a race coefficient. Performed By: #### P INR, 48767-3, 4679-7, FEPR, 6793-4, 2132-9, 2276-4, 2284-8, 2731-8, 01906-2 #### [facility] ([id number]) [address], [address] [place] [address] Basic Metabolic Panelon 06-2 eGFR (CKD-EPI)non-race dependent - PINF [facility] Comment on above: Reported eGFR is based on the CKD-EPI 2020 equation that does not use a race coefficient. Interpretation and review of laboratory results Abnormal [facility] CBC AND AUTO DIFFon 02-01- 24 Basophils/100 WBC (Bld) 1.0 % Normal [facility] Comment on above: Performed By: #### P INR, 30260-7, 4679-7, FEPR, 6793-4, 2132- 9, 2276-4, 2284-8, 2731-8, 92963-0 #### [facility] ([id number]) [address], [address] [place] [address] Eosinophils (Bld) [#/Vol] 0.1 10*3/uL Normal 0.0-0.4 [facility] Comment on above: Performed By: #### P INR, 12244-4, 4679-7, FEPR, 6793-4, 2132- 9, 2276-4, 2284-8, 2731-8, 74774-6 #### [facility] ([id number]) [address], [address] [place] [address] Eosinophils/100 WBC (Bld) 1.2 % Normal [facility] Comment on above: Performed By: #### P INR, 04599-3, 4679-7, FEPR, 6793-4, 2132- 9, 2276-4, 2284-8, 2731-8, 17852-7 #### [facility] ([id number]) [address], [address] [place] [address] Erythrocyte distribution width (RBC) [Ratio] 15.9 % High 11.5-15.0 [facility] Comment on above: Performed By: #### P INR, 12535-9, 4679-7, FEPR, 6793-4, 2132- 9, 2276-4, 2284-8, 2731-8, 87648-4 #### [facility] ([id number]) [address], [address] [place] [address] Hematocrit (Bld) [Volume fraction] 30.3 % Low 39-49 [facility] Comment on above: Performed By: #### P INR, 18295-1, 4679-7, FEPR, 6793-4, 2132- 9, 2276-4, 2284-8, 2731-8, 62767-5 #### [facility] ([id number]) [address], [address] [place] [address] Hemoglobin (Bld) [Mass/Vol] 10.3 g/dL Low 13.0-17.0 [facility] Comment on above: Performed By: #### P INR, 87377-7, 4679-7, FEPR, 6793-4, 2132- 9, 2276-4, 2284-8, 2731-8, 98869-4 #### [facility] ([id number]) [address], [address] [place] [address] Lymphocytes (Bld) [#/Vol] 1.4 10*3/uL Normal 1.0-3.5 [facility] Comment on above: Performed By: #### P INR, 72903-8, 4679-7, FEPR, 6793-4, 2132- 9, 2276-4, 2284-8, 2731-8, 38429-6 #### [facility] ([id number]) [address], [address] [place] [address] Lymphocytes/100 WBC (Bld) 21.4 % Normal [facility] Comment on above: Performed By: #### P INR, 70947-9, 4679-7, FEPR, 6793-4, 2132- 9, 2276-4, 2284-8, 2731-8, 12969-7 #### [facility] ([id number]) [address], [address] [place] [address] MCH (RBC) [Entitic mass] 28.9 pg Normal 27-34 [facility] Comment on above: Performed By: #### P INR, 58743-1, 4679-7, FEPR, 6793-4, 2132- 9, 2276-4, 2284-8, 2731-8, 93106-1 #### [facility] ([id number]) [address], [address] [place] [address] MCHC (RBC) [Mass/Vol] 34.1 g/dL Normal 32-36 [facility] Comment on above: Performed By: #### P INR, 58731-2, 4679-7, FEPR, 6793-4, 2132- 9, 2276-4, 2284-8, 2731-8, 35071-1 #### [facility] ([id number]) [address], [address] [place] [address] MCV (RBC) [Entitic vol] 85 fL Normal 80-100 [facility] Comment on above: Performed By: #### P INR, 45665-2, 4679-7, FEPR, 6793-4, 2132- 9, 2276-4, 2284-8, 2731-8, 57701-5 #### [facility] ([id number]) [address], [address] [place] [address] Monocytes (Bld) [#/Vol] 0.6 10*3/uL Normal 0-0.9 [facility] Comment on above: Performed By: #### P INR, 00231-2, 4679-7, FEPR, 6793-4, 2132- 9, 2276-4, 2284-8, 2731-8, 64207-1 #### [facility] ([id number]) [address], [address] [place] [address] Monocytes/100 WBC (Bld) 9.4 % Normal [facility] Comment on above: Performed By: #### P INR, 53099-0, 4679-7, FEPR, 6793-4, 2132- 9, 2276-4, 2284-8, 2731-8, 42839-1 #### [facility] ([id number]) [address], [address] [place] [address] Neutrophils/100 WBC (Bld) 67.0 % Normal [facility] Comment on above: Performed By: #### P INR, 46098-9, 4679-7, FEPR, 6793-4, 2132- 9, 2276-4, 2284-8, 2731-8, 17508-9 #### [facility] ([id number]) [address], [address] [place] [address] Platelet mean volume (Bld) [Entitic vol] 10.0 fL Normal 7-12 [facility] Comment on above: Performed By: #### P INR, 99715-3, 4679-7, FEPR, 6793-4, 2132- 9, 2276-4, 2284-8, 2731-8, 39420-6 #### [facility] ([id number]) [address], [address] [place] [address] Platelets (Bld) [#/Vol] 235 10*3/uL Normal 150-450 [facility] Comment on above: Performed By: #### P INR, 67835-2, 4679-7, FEPR, 6793-4, 2132- 9, 2276-4, 2284-8, 2731-8, 03026-4 #### [facility] ([id number]) [address], [address] [place] [address] ABSOLUTE BASOPHIL 0.1 X10E9/L Normal 0.0-0.2 [facility] Comment on above: Performed By: #### P INR, 71906-9, 4679-7, FEPR, 6793-4, 2132- 9, 2276-4, 2284-8, 2731-8, 76247-1 #### [facility] ([id number]) [address], [address] [place] [address] ABSOLUTE NEUTROPHIL 4.3 X10E9/L Normal 1.5-6.6 [facility] Comment on above: Performed By: #### P INR, 44809-8, 4679-7, FEPR, 6793-4, 2132- 9, 2276-4, 2284-8, 2731-8, 28759-1 #### [facility] ([id number]) [address], [address] [place] [address] RBC COUNT 3.58 X10E12/L Low 4.10-5.70 [facility] Comment on above: Performed By: #### P INR, 60610-1, 4679-7, FEPR, 6793-4, 2132- 9, 2276-4, 2284-8, 2731-8, 90172-2 #### [facility] ([id number]) [address], [address] [place] [address] WBC (Bld) [#/Vol] 6.4 10*3/uL Normal 4.0-11.0 [facility] Comment on above: Performed By: #### P INR, 80059-7, 4679-7, FEPR, 6793-4, 2132- 9, 2276-4, 2284-8, 2731-8, 84692-3 #### [facility] ([id number]) [address], [address] [place] [address] CBC auto differentialon 01-13 Basophils (Bld) [#/Vol] 0.1 10*3/uL [facility] Interpretation and review of laboratory results Abnormal [facility] Neutrophils (Bld) [#/Vol] 4.3 10*3/uL [facility] RBC (Bld) [#/Vol] 3.58 10*6/uL Low [facility] WBC corrected for nucl RBC Auto (Bld) [#/Vol] 6.4 [facility] Glucose Glucometer (BldC) [M ass/Vol]on 02-02-2024 Glucose [Mass/Vol] 182 mg/dL High 65 - 99 mg/dL [facility] Interpretation and review of laboratory results Abnormal [facility] Glucose [Mass/Vol] 182 mg/dL High 65-99 [facility] Glucose [Mass/Vol] 131 mg/dL High 65 - 99 mg/dL [facility] Interpretation and review of laboratory results Abnormal [facility] Glucose [Mass/Vol] 131 mg/dL High 65-99 [facility] Glucose [Mass/Vol] 167 mg/dL High 65 - 99 mg/dL [facility] Interpretation and review of laboratory results Abnormal [facility] Glucose [Mass/Vol] 167 mg/dL High 65-99 [facility] Glucose [Mass/Vol] 146 mg/dL High 65 - 99 mg/dL [facility] Interpretation and review of laboratory results Abnormal [facility] Glucose [Mass/Vol] 146 mg/dL High 65-99 [facility] US.doppler Lower extremity v ein - righton 02-02-2024 Right: Lower extremi ty deep veins are compressible with spontaneous phasic spectral Doppler waveforms; superficial veins are compressible without intraluminal content. Left: Common femoral vein is compressible with spontaneous phasic spectral Doppler waveforms. Conclusions: NO EVIDENCE of deep or superficial vein thrombosis of the right lower extremity. No evidence of deep vein thrombosis (DVT) of the left common femoral vein. Recommendations: Any questions prior to finalization, please call the reading physician during normal business hours at the phone number beside their name. [facility] Rox Miller, DO - 02/02/2024 Right: Lower extremity deep veins are compressible with spontaneous phasic spectral Doppler waveforms; superficial veins are compressible without intraluminal content. Left: Common femoral vein is compressible with spontaneous phasic spectral Doppler waveforms. Conclusions: NO EVIDENCE of deep or superficial vein thrombosis of the right lower extremity. No evidence of deep vein thrombosis (DVT) of the left common femoral vein. Recommendations: Any questions prior to finalization, please call the reading physician during normal business hours at the phone number beside their name. [facility] Radiology Study observation (narrative) [facility] US.doppler Lower extremity v ein - rightOrdered By: Rox Miller on 02-02-2024 [facility] Work Phone: BASIC METABOLIC PANLon 01-31 Anion gap [Moles/Vol] 13 mmol/L Normal 5-15 [facility] Comment on above: Performed By: #### P INR, 32240-4, 4679-7, FEPR, 6793-4, 2132- 9, 2276-4, 2284-8, 2731-8, 14613-6 #### [facility] ([id number]) [address] [place] [address] Calcium [Mass/Vol] 9.0 mg/dL Normal 8.5-10.5 [facility] Comment on above: Performed By: #### P INR, 39551-2, 4679-7, FEPR, 6793-4, 2132- 9, 2276-4, 2284-8, 2731-8, 62691-6 #### [facility] ([id number]) [address] [place] [address] Chloride [Moles/Vol] 98 mmol/L Normal 98-109 [facility] Comment on above: Performed By: #### P INR, 64698-5, 4679-7, FEPR, 6793-4, 2132- 9, 2276-4, 2284-8, 2731-8, 14991-2 #### [facility] ([id number]) [address] [place] [address] CO2 [Moles/Vol] 23 mmol/L Normal 22-32 [facility] Comment on above: Performed By: #### P INR, 88563-0, 4679-7, FEPR, 6793-4, 2132- 9, 2276-4, 2284-8, 2731-8, 77094-1 #### [facility] ([id number]) [address] [place] [address] Creatinine [Mass/Vol] 0.66 mg/dL Normal 0.60-1.30 [facility] Comment on above: Result Comment: METH OD TRACEABLE TO IDMS STANDARD Performed By: #### P INR, 64419-1, 4679-7, FEPR, 6793-4, 2132-9, 2276-4, 2284-8, 2731-8, 16395-6 #### [facility] ([id number]) [address], [address] [place] [address] eGFR (CKD-EPI) NON-RACE DEPENDENT >90 Normal >59 [facility] Comment on above: Result Comment: Reported eGFR is based on the CKD-EPI 2020 equation that does not use a race coefficient. Performed By: #### P INR, 17458-9, 4679-7, FEPR, 6793-4, 2132-9, 2276-4, 2284-8, 2731-8, 75074-8 #### [facility] ([id number]) [address], [address] [place] [address] Glucose [Mass/Vol] 130 mg/dL High 65-99 [facility] Comment on above: Performed By: #### P INR, 67721-9, 4679-7, FEPR, 6793-4, 2132- 9, 2276-4, 2284-8, 2731-8, 31888-3 #### [facility] ([id number]) [address], [address] [place] [address] Potassium [Moles/Vol] 3.8 mmol/L Normal 3.5-5.0 [facility] Comment on above: Performed By: #### P INR, 48204-7, 4679-7, FEPR, 6793-4, 2132- 9, 2276-4, 2284-8, 2731-8, 32641-5 #### [facility] ([id number]) [address], [address] [place] [address] Sodium [Moles/Vol] 134 mmol/L Normal 134-146 [facility] Comment on above: Performed By: #### P INR, 65833-5, 4679-7, FEPR, 6793-4, 2132- 9, 2276-4, 2284-8, 2731-8, 74447-9 #### [facility] ([id number]) [address], [address] [place] [address] Urea nitrogen [Mass/Vol] 15 mg/dL Normal 5-23 [facility] Comment on above: Performed By: #### P INR, 69003-3, 4679-7, FEPR, 6793-4, 2132- 9, 2276-4, 2284-8, 2731-8, 19573-8 #### [facility] ([id number]) [address], [address] [place] [address] Basic Metabolic Panelon - Anion gap [Moles/Vol] 13 mmol/L 5 - 15 mmol/L [facility] Calcium [Mass/Vol] 9.0 mg/dL 8.5 - 10. 5 mg/dL [facility] Chloride [Moles/Vol] 98 mmol/L 98 - 10 9 mmol/L [facility] CO2 [Moles/Vol] 23 mmol/L 22 - 32 mmol/L [facility] Creatinine [Mass/Vol] 0.66 mg/dL 0.60 - 1.30 mg/dL [facility] Comment on above: METHOD TRACEABLE TO IDKS STANDARD eGFR (CKD-EPI)non-race dependent - PINF [facility] Comment on above: Reported eGFR is based on the CKD-EPI 2020 equation that does not use a race coefficient. Glucose [Mass/Vol] 130 mg/dL High 65 - 99 mg/dL [facility] Interpretation and review of laboratory results Abnormal [facility] Potassium [Moles/Vol] 3.8 mmol/L 3.5 - 5.0 mmol/L [facility] Sodium [Moles/Vol] 134 mmol/L 134 - 146 mmol/L [facility] Urea nitrogen [Mass/Vol] 15 mg/dL 5 - 23 mg/dL [facility] CBC AND AUTO DIFFon 02-01-20 ABSOLUTE BASOPHIL 0.1 X10E9/L Normal 0.0-0.2 [facility] Comment on above: Performed By: #### P INR, 94875-5, 4679-7, FEPR, 6793-4, 2132- 9, 2276-4, 2284-8, 2731-8, 64707-1 #### [facility] ([id number]) [address], [address] [place] [address] ABSOLUTE NEUTROPHIL 4.5 X10E9/L Normal 1.5-6.6 [facility] Comment on above: Performed By: #### P INR, 53211-4, 4679-7, FEPR, 6793-4, 2132- 9, 2276-4, 2284-8, 2731-8, 13489-6 #### [facility] ([id number]) [address], [address] [place] [address] Basophils/100 WBC (Bld) 0.9 % Normal [facility] Comment on above: Performed By: #### P INR, 46447-9, 4679-7, FEPR, 6793-4, 2132- 9, 2276-4, 2284-8, 2731-8, 26072-2 #### [facility] ([id number]) [address], [address] [place] [address] Eosinophils (Bld) [#/Vol] 0.1 10*3/uL Normal 0.0-0.4 [facility] Comment on above: Performed By: #### P INR, 77494-3, 4679-7, FEPR, 6793-4, 2132- 9, 2276-4, 2284-8, 2731-8, 99485-9 #### [facility] ([id number]) [address], [address] [place] [address] Eosinophils/100 WBC (Bld) 1.0 % Normal [facility] Comment on above: Performed By: #### P INR, 24989-3, 4679-7, FEPR, 6793-4, 2132- 9, 2276-4, 2284-8, 2731-8, 02296-1 #### [facility] ([id number]) [address], [address] [place] [address] Erythrocyte distribution width (RBC) [Ratio] 15.5 % High 11.5-15.0 [facility] Comment on above: Performed By: #### P INR, 32143-6, 4679-7, FEPR, 6793-4, 2132- 9, 2276-4, 2284-8, 2731-8, 07224-8 #### [facility] ([id number]) [address], [address] [place] [address] Hematocrit (Bld) [Volume fraction] 31.0 % Low 39-49 [facility] Comment on above: Performed By: #### P INR, 29051-0, 4679-7, FEPR, 6793-4, 2- 9, 2276-4, 2284-8, 2731-8, 77359-0 #### [facility] ([id number]) [address], [address] [place] [address] Hemoglobin (Bld) [Mass/Vol] 10.8 g/dL Low 13.0-17.0 [facility] Comment on above: Performed By: #### P INR, 03846-8, 4679-7, FEPR, 6793-4, 2- 9, 2276-4, 2284-8, 2731-8, 85034-5 #### [facility] ([id number]) [address], [address] [place] [address] Lymphocytes (Bld) [#/Vol] 1.3 10*3/uL Normal 1.0-3.5 [facility] Comment on above: Performed By: #### P INR, 89300-1, 4679-7, FEPR, 6793-4, 2132- 9, 2276-4, 2284-8, 2731-8, 76202-3 #### [facility] ([id number]) [address], [address] [place] [address] Lymphocytes/100 WBC (Bld) 20.0 % Normal [facility] Comment on above: Performed By: #### P INR, 41103-1, 4679-7, FEPR, 6793-4, 2132- 9, 2276-4, 2284-8, 2731-8, 72277-0 #### [facility] ([id number]) [address], [address] [place] [address] MCH (RBC) [Entitic mass] 29.2 pg Normal 27-34 [facility] Comment on above: Performed By: #### P INR, 87359-6, 4679-7, FEPR, 6793-4, 2132- 9, 2276-4, 2284-8, 2731-8, 09395-5 #### [facility] ([id number]) [address], [address] [place] [address] MCHC (RBC) [Mass/Vol] 34.7 g/dL Normal 32-36 [facility] Comment on above: Performed By: #### P INR, 33901-1, 4679-7, FEPR, 6793-4, 2132- 9, 2276-4, 2284-8, 2731-8, 29868-5 #### [facility] ([id number]) [address], [address] [place] [address] MCV (RBC) [Entitic vol] 84 fL Normal 80-100 [facility] Comment on above: Performed By: #### P INR, 27869-9, 4679-7, FEPR, 6793-4, 2132- 9, 2276-4, 2284-8, 2731-8, 04728-7 #### [facility] ([id number]) [address], [address] [place] [address] Monocytes (Bld) [#/Vol] 0.6 10*3/uL Normal 0-0.9 [facility] Comment on above: Performed By: #### P INR, 56198-7, 4679-7, FEPR, 6793-4, 2132- 9, 2276-4, 2284-8, 2731-8, 87141-9 #### [facility] ([id number]) [address], [address] [place] [address] Monocytes/100 WBC (Bld) 8.5 % Normal [facility] Comment on above: Performed By: #### P INR, 54803-1, 4679-7, FEPR, 6793-4, 2132- 9, 2276-4, 2284-8, 2731-8, 24333-3 #### [facility] ([id number]) [address], [address] [place] [address] Neutrophils/100 WBC (Bld) 69.6 % Normal [facility] Comment on above: Performed By: #### P INR, 60326-3, 4679-7, FEPR, 6793-4, 2132- 9, 2276-4, 2284-8, 2731-8, 66135-5 #### [facility] ([id number]) [address], [address] [place] [address] Platelet mean volume (Bld) [Entitic vol] 10.4 fL Normal 7-12 [facility] Comment on above: Performed By: #### P INR, 76185-9, 4679-7, FEPR, 6793-4, 2132- 9, 2276-4, 2284-8, 2731-8, 41231-6 #### [facility] ([id number]) [address], [address] [place] [address] Platelets (Bld) [#/Vol] 273 10*3/uL Normal 150-450 [facility] Comment on above: Performed By: #### P INR, 21602-1, 4679-7, FEPR, 6793-4, 2132- 9, 2276-4, 2284-8, 2731-8, 63564-3 #### [facility] ([id number]) [address], [address] [place] [address] RBC COUNT 3.69 X10E12/L Low 4.10-5.70 [facility] Comment on above: Performed By: #### P INR, 65739-6, 4679-7, FEPR, 6793-4, 2132- 9, 2276-4, 2284-8, 2731-8, 33122-1 #### [facility] ([id number]) [address] [place] [address], [address] [place] [address] WBC (Bld) [#/Vol] 6.5 10*3/uL Normal 4.0-11.0 [facility] Comment on above: Performed By: #### P INR, 89759-2, 4679-7, FEPR, 6793-4, 2132- 9, 2276-4, 2284-8, 2731-8, 73760-3 #### [facility] ([id number]) [address] [place] [address], [address] [place] [address] CBC auto differentialon 01-13 0-2023 Basophils (Bld) [#/Vol] 0.1 10*3/uL [facility] Basophils/100 WBC (Bld) 0.9 % [facility] Eosinophils (Bld) [#/Vol] 0.1 10*3/uL [facility] Eosinophils/100 WBC (Bld) 1.0 % [facility] Erythrocyte distribution width (RBC) [Ratio] 15.5 % High 11.5 - 15.0 % [facility] Hematocrit (Bld) [Volume fraction] 31.0 % Low 39 - 49 % [facility] Hemoglobin (Bld) [Mass/Vol] 10.8 g/dL Low 13.0 - 17.0 g/dL [facility] Interpretation and review of laboratory results Abnormal [facility] Lymphocytes (Bld) [#/Vol] 1.3 10*3/uL [facility] Lymphocytes/100 WBC (Bld) 20.0 % [facility] MCH (RBC) [Entitic mass] 29.2 pg 27 - 34 pg [facility] MCHC (RBC) [Mass/Vol] 34.7 g/dL 32 - 3 6 g/dL [facility] MCV (RBC) [Entitic vol] 84 fL 80 - 100 fL [facility] Monocytes (Bld) [#/Vol] 0.6 10*3/uL [facility] Monocytes/100 WBC (Bld) 8.5 % [facility] Neutrophils (Bld) [#/Vol] 4.5 10*3/uL [facility] Neutrophils/100 WBC (Bld) 69.6 % [facility] Platelet mean volume (Bld) [Entitic vol] 10.4 fL 7 - 12 fL [facility] Platelets (Bld) [#/Vol] 273 10*3/uL [facility] RBC (Bld) [#/Vol] 3.69 10*6/uL Low [facility] WBC corrected for nucl RBC Auto (Bld) [#/Vol] 6.5 [facility] Glucose Glucometer (dC) [M ass/Vol]on 02-01-2024 Glucose [Mass/Vol] 135 mg/dL High 65 - 99 mg/dL [facility] Interpretation and review of laboratory results Abnormal [facility] Glucose [Mass/Vol] 135 mg/dL High 65-99 [facility] Glucose [Mass/Vol] 232 mg/dL High 65 - 99 mg/dL [facility] Interpretation and review of laboratory results Abnormal [facility] Glucose [Mass/Vol] 232 mg/dL High 65-99 [facility] Glucose [Mass/Vol] 132 mg/dL High 65 - 99 mg/dL [facility] Interpretation and review of laboratory results Abnormal [facility] Glucose [Mass/Vol] 132 mg/dL High 65-99 [facility] Glucose [Mass/Vol] 125 mg/dL High 65 - 99 mg/dL [facility] Interpretation and review of laboratory results Abnormal [facility] Glucose [Mass/Vol] 125 mg/dL High 65-99 [facility] BASIC METABOLIC PANLon 01-30 Anion gap [Moles/Vol] 12 mmol/L Normal 5-15 [facility] Comment on above: Performed By: #### P INR, 42322-0, 4679-7, FEPR, 6793-4, 2132- 9, 2276-4, 2284-8, 2731-8, 89834-3 #### [facility] ([id number]) [address], [address] [place] [address] Calcium [Mass/Vol] 9.0 mg/dL Normal 8.5-10.5 [facility] Comment on above: Performed By: #### P INR, 33645-3, 4679-7, FEPR, 6793-4, 2132- 9, 2276-4, 2284-8, 2731-8, 89542-0 #### [facility] ([id number]) [address], [address] [place] [address] Chloride [Moles/Vol] 95 mmol/L Low 98-109 [facility] Comment on above: Performed By: #### P INR, 69679-1, 4679-7, FEPR, 6793-4, 2132- 9, 2276-4, 2284-8, 2731-8, 14498-3 #### [facility] ([id number]) [address], [address] [place] [address] CO2 [Moles/Vol] 24 mmol/L Normal 22-32 [facility] Comment on above: Performed By: #### P INR, 33474-2, 4679-7, FEPR, 6793-4, 2132- 9, 2276-4, 2284-8, 2731-8, 28167-0 #### [facility] ([id number]) [address], [address] [place] [address] Creatinine [Mass/Vol] 0.64 mg/dL Normal 0.60-1.30 [facility] Comment on above: Result Comment: METH OD TRACEABLE TO IDMS STANDARD Performed By: #### P INR, 34193-7, 4679-7, FEPR, 6793-4, 2132-9, 2276-4, 2284-8, 2731-8, 22726-8 #### [facility] ([id number]) [address], [facility] [address] [place] [address] eGFR (CKD-EPI) NON-RACE DEPENDENT >90 Normal >59 [facility] Comment on above: Result Comment: Reported eGFR is based on the CKD-EPI 2020 equation that does not use a race coefficient. Performed By: #### P INR, 99430-7, 4679-7, FEPR, 6793-4, 2132-9, 2276-4, 2284-8, 2731-8, 09978-6 #### [facility] ([id number]) [address], [facility] [address] [place] [address] Glucose [Mass/Vol] 205 mg/dL High 65-99 [facility] Comment on above: Performed By: #### P INR, 97445-9, 4679-7, FEPR, 6793-4, 2132- 9, 2276-4, 2284-8, 2731-8, 15331-2 #### [facility] ([id number]) [address], [address] [place] [address] Potassium [Moles/Vol] 4.1 mmol/L Normal 3.5-5.0 [facility] Comment on above: Performed By: #### P INR, 50147-2, 4679-7, FEPR, 6793-4, 2132- 9, 2276-4, 2284-8, 2731-8, 51411-7 #### [facility] ([id number]) [address], [address] [place] [address] Sodium [Moles/Vol] 131 mmol/L Low 134-146 [facility] Comment on above: Performed By: #### P INR, 75140-5, 4679-7, FEPR, 6793-4, 2132- 9, 2276-4, 2284-8, 2731-8, 09965-8 #### [facility] ([id number]) [address], [address] [place] [address] Urea nitrogen [Mass/Vol] 13 mg/dL Normal 5-23 [facility] Comment on above: Performed By: #### P INR, 74516-6, 4679-7, FEPR, 6793-4, 2132- 9, 2276-4, 2284-8, 2731-8, 21831-2 #### [facility] ([id number]) [address] [facility], [address] [place] [address] Basic Metabolic Panelon 01-12 Anion gap [Moles/Vol] 12 mmol/L 5 - 15 mmol/L [facility] Calcium [Mass/Vol] 9.0 mg/dL 8.5 - 10. 5 mg/dL [facility] Chloride [Moles/Vol] 95 mmol/L Low 98 - 10 9 mmol/L [facility] CO2 [Moles/Vol] 24 mmol/L 22 - 32 mmol/L [facility] Creatinine [Mass/Vol] 0.64 mg/dL 0.60 - 1.30 mg/dL [facility] Comment on above: METHOD TRACEABLE TO IDMS STANDARD eGFR (CKD-EPI)non-race dependent - PINF [facility] Comment on above: Reported eGFR is based on the CKD-EPI 2020 equation that does not use a race coefficient. Glucose [Mass/Vol] 205 mg/dL High 65 - 99 mg/dL [facility] Interpretation and review of laboratory results Abnormal [facility] Potassium [Moles/Vol] 4.1 mmol/L 3.5 - 5.0 mmol/L [facility] Sodium [Moles/Vol] 131 mmol/L Low 134 - 146 mmol/L [facility] Urea nitrogen [Mass/Vol] 13 mg/dL 5 - 23 mg/dL [facility] CBC without diffon Erythrocyte distribution width (RBC) [Ratio] 15.7 % High 11.5 - 15.0 % [facility] Hematocrit (Bld) [Volume fraction] 27.1 % Low 39 - 49 % [facility] Hemoglobin (Bld) [Mass/Vol] 9.4 g/dL Low 13.0 - 17.0 g/dL [facility] Interpretation and review of laboratory results Abnormal [facility] MCH (RBC) [Entitic mass] 28.8 pg 27 - 34 pg [facility] MCHC (RBC) [Mass/Vol] 34.7 g/dL 32 - 3 6 g/dL [facility] MCV (RBC) [Entitic vol] 83 fL 80 - 100 fL [facility] Platelet mean volume (Bld) [Entitic vol] 10.4 fL 7 - 12 fL [facility] Platelets (Bld) [#/Vol] 230 10*3/uL [facility] RBC (Bld) [#/Vol] 3.26 10*6/uL Low [facility] WBC corrected for nucl RBC Auto (Bld) [#/Vol] 11.2 High [facility] COMPLETE BLOOD COUNTon 01-30 Erythrocyte distribution width (RBC) [Ratio] 15.7 % High 11.5-15.0 [facility] Comment on above: Performed By: #### P INR, 50761-5, 4679-7, FEPR, 6793-4, 2- 9, 2276-4, 2284-8, 2731-8, 35187-0 #### [facility] ([id number]) [address] [facility] [address], [address] [place] [address] Hematocrit (Bld) [Volume fraction] 27.1 % Low 39-49 [facility] Comment on above: Performed By: #### P INR, 24974-8, 4679-7, FEPR, 6793-4, 2132- 9, 2276-4, 2284-8, 2731-8, 58468-9 #### [facility] ([id number]) [address], [address] [place] [address] Hemoglobin (Bld) [Mass/Vol] 9.4 g/dL Low 13.0-17.0 [facility] Comment on above: Performed By: #### P INR, 18180-2, 4679-7, FEPR, 6793-4, 2132- 9, 2276-4, 2284-8, 2731-8, 18467-2 #### [facility] ([id number]) [address], [address] [place] [address] MCH (RBC) [Entitic mass] 28.8 pg Normal 27-34 [facility] Comment on above: Performed By: #### P INR, 25704-3, 4679-7, FEPR, 6793-4, 2132- 9, 2276-4, 2284-8, 2731-8, 46028-0 #### [facility] ([id number]) [address], [address] [place] [address] MCHC (RBC) [Mass/Vol] 34.7 g/dL Normal 32-36 [facility] Comment on above: Performed By: #### P INR, 64665-2, 4679-7, FEPR, 6793-4, 2132- 9, 2276-4, 2284-8, 2731-8, 49993-1 #### [facility] ([id number]) [address], [address] [place] [address] MCV (RBC) [Entitic vol] 83 fL Normal 80-100 [facility] Comment on above: Performed By: #### P INR, 25641-8, 4679-7, FEPR, 6793-4, 2132- 9, 2276-4, 2284-8, 2731-8, 84960-3 #### [facility] ([id number]) [address], [address] [place] [address] Platelet mean volume (Bld) [Entitic vol] 10.4 fL Normal 7-12 [facility] Comment on above: Performed By: #### P INR, 54565-9, 4679-7, FEPR, 6793-4, 2132- 9, 2276-4, 2284-8, 2731-8, 54603-7 #### [facility] ([id number]) [address], [address] [place] [address] Platelets (Bld) [#/Vol] 230 10*3/uL Normal 150-450 [facility] Comment on above: Performed By: #### P INR, 15187-1, 4679-7, FEPR, 6793-4, 2132- 9, 2276-4, 2284-8, 2731-8, 42541-1 #### [facility] ([id number]) [address], [address] [place] [address] RBC COUNT 3.26 X10E12/L Low 4.10-5.70 [facility] Comment on above: Performed By: #### P INR, 08056-7, 4679-7, FEPR, 6793-4, 2132- 9, 2276-4, 2284-8, 2731-8, 82944-0 #### [facility] ([id number]) [address], [address] [place] [address] WBC (Bld) [#/Vol] 11.2 10*3/uL High 4.0-11.0 [facility] Comment on above: Performed By: #### P INR, 91259-7, 4679-7, FEPR, 6793-4, 2132- 9, 2276-4, 2284-8, 2731-8, 02803-3 #### [facility] ([id number]) [address], [address] [place] [address] Glucose Glucometer (BldC) [M ass/Vol]on 01-31-2024 Glucose [Mass/Vol] 260 mg/dL High 65 - 99 mg/dL [facility] Interpretation and review of laboratory results Abnormal [facility] Glucose [Mass/Vol] 260 mg/dL High 65-99 [facility] Glucose [Mass/Vol] 145 mg/dL High 65 - 99 mg/dL [facility] Interpretation and review of laboratory results Abnormal [facility] Glucose [Mass/Vol] 145 mg/dL High 65-99 [facility] Glucose [Mass/Vol] 185 mg/dL High 65 - 99 mg/dL [facility] Interpretation and review of laboratory results Abnormal [facility] Glucose [Mass/Vol] 185 mg/dL High 65-99 [facility] Glucose [Mass/Vol] 198 mg/dL High 65 - 99 mg/dL [facility] Interpretation and review of laboratory results Abnormal [facility] Glucose [Mass/Vol] 198 mg/dL High 65-99 [facility] Osmolalityon 01-31-2024 Osmolality [Osmolality] 279 mosm/kg Low [facility] Osmolality (U) [Osmolality]o n 01-31-2024 [facility] URINE OSMOLALITY 521 mOsm/kg H2 Normal 300-1300 [facility] Comment on above: Performed By: #### P INR, 20262-3, 4679-7, FEPR, 6793-4, 2132- 9, 2276-4, 2284-8, 2731-8, 60960-6 #### [facility] ([id number]) [address] [facility], [address] [place] [address] Osmolality [Osmolality]on Interpretation and review of laboratory results Abnormal [facility] OSMOLALITY 279 mOsm/kg H2 Low 280-300 [facility] Comment on above: Performed By: #### P INR, 06968-6, 4679-7, FEPR, 6793-4, 2132- 9, 2276-4, 2284-8, 2731-8, 14741-6 #### [facility] ([id number]) [address], [address] [place] [address] Osmolality, urineon 01-31-20 Osmolality (U) [Osmolality] 521 mosm/kg [facility] Sodium (U) [Moles/Vol]on [facility] Sodium, urine, randomon 01-12 Sodium (U) [Moles/Vol] 10 mmol/L [facility] URINE SODIUM,RANDOMon 2023 Sodium (U) [Moles/Vol] 10 mmol/L Normal [facility] Comment on above: Performed By: #### P INR, 29981-5, 4679-7, FEPR, 6793-4, 2132- 9, 2276-4, 2284-8, 2731-8, 16906-1 #### [facility] ([id number]) [address], [address] [place] [address] BASIC METABOLIC PANLon 01-29 Anion gap [Moles/Vol] 9 mmol/L Normal 5-15 [facility] Comment on above: Performed By: #### P INR, 68628-1, 4679-7, FEPR, 6793-4, 2132- 9, 2276-4, 2284-8, 2731-8, 97502-8 #### [facility] ([id number]) [address], [address] [place] [address] Calcium [Mass/Vol] 9.6 mg/dL Normal 8.5-10.5 [facility] Comment on above: Performed By: #### P INR, 61160-3, 4679-7, FEPR, 6793-4, 2132- 9, 2276-4, 2284-8, 2731-8, 01718-0 #### [facility] ([id number]) [address], [address] [place] [address] Chloride [Moles/Vol] 97 mmol/L Low 98-109 [facility] Comment on above: Performed By: #### P INR, 17473-0, 4679-7, FEPR, 6793-4, 2132- 9, 2276-4, 2284-8, 2731-8, 00005-2 #### [facility] ([id number]) [address] [facility], [address] [place] [address] CO2 [Moles/Vol] 29 mmol/L Normal 22-32 [facility] Comment on above: Performed By: #### P INR, 57418-8, 4679-7, FEPR, 6793-4, 2132- 9, 2276-4, 2284-8, 2731-8, 97616-3 #### [facility] ([id number]) [address] [facility], [address] [place] [address] Creatinine [Mass/Vol] 0.65 mg/dL Normal 0.60-1.30 [facility] Comment on above: Result Comment: METH OD TRACEABLE TO IDMS STANDARD Performed By: #### P INR, 65024-4, 4679-7, FEPR, 6793-4, 2132-9, 2276-4, 2284-8, 2731-8, 78838-0 #### [facility] ([id number]) [address] [facility], [address] [place] [address] eGFR (CKD-EPI) NON-RACE DEPENDENT >90 Normal >59 [facility] Comment on above: Result Comment: Reported eGFR is based on the CKD-EPI 2020 equation that does not use a race coefficient. Performed By: #### P INR, 91258-2, 4679-7, FEPR, 6793-4, 2132-9, 2276-4, 2284-8, 2731-8, 47939-6 #### [facility] ([id number]) [address] [facility], [address] [place] [address] Glucose [Mass/Vol] 159 mg/dL High 65-99 [facility] Comment on above: Performed By: #### P INR, 50939-8, 4679-7, FEPR, 6793-4, 2132- 9, 2276-4, 2284-8, 2731-8, 83593-5 #### [facility] ([id number]) [address], [address] [place] [address] Potassium [Moles/Vol] 4.6 mmol/L Normal 3.5-5.0 [facility] Comment on above: Performed By: #### P INR, 39982-3, 4679-7, FEPR, 6793-4, 2132- 9, 2276-4, 2284-8, 2731-8, 59954-1 #### [facility] ([id number]) [address], [address] [place] [address] Sodium [Moles/Vol] 135 mmol/L Normal 134-146 [facility] Comment on above: Performed By: #### P INR, 14357-9, 4679-7, FEPR, 6793-4, 2132- 9, 2276-4, 2284-8, 2731-8, 00238-8 #### [facility] ([id number]) [address], [address] [place] [address] Urea nitrogen [Mass/Vol] 13 mg/dL Normal 5-23 [facility] Comment on above: Performed By: #### P INR, 61608-3, 4679-7, FEPR, 6793-4, 2132- 9, 2276-4, 2284-8, 2731-8, 90158-3 #### [facility] ([id number]) [address], [address] [place] [address] Basic Metabolic Panelon - Anion gap [Moles/Vol] 9 mmol/L 5 - 15 mmol/L [facility] Calcium [Mass/Vol] 9.6 mg/dL 8.5 - 10. 5 mg/dL [facility] Chloride [Moles/Vol] 97 mmol/L Low 98 - 10 9 mmol/L [facility] CO2 [Moles/Vol] 29 mmol/L 22 - 32 mmol/L [facility] Creatinine [Mass/Vol] 0.65 mg/dL 0.60 - 1.30 mg/dL [facility] Comment on above: METHOD TRACEABLE TO [facility] STANDARD eGFR (CKD-EPI)non-race dependent - PINF [facility] Comment on above: Reported eGFR is based on the CKD-EPI 2020 equation that does not use a race coefficient. Glucose [Mass/Vol] 159 mg/dL High 65 - 99 mg/dL [facility] Interpretation and review of laboratory results Abnormal [facility] Potassium [Moles/Vol] 4.6 mmol/L 3.5 - 5.0 mmol/L [facility] Sodium [Moles/Vol] 135 mmol/L 134 - 146 mmol/L [facility] Urea nitrogen [Mass/Vol] 13 mg/dL 5 - 23 mg/dL [facility] CBC without diffon Erythrocyte distribution width (RBC) [Ratio] 15.9 % High 11.5 - 15.0 % [facility] Hematocrit (Bld) [Volume fraction] 34.6 % Low 39 - 49 % [facility] Hemoglobin (Bld) [Mass/Vol] 11.4 g/dL Low 13.0 - 17.0 g/dL [facility] Interpretation and review of laboratory results Abnormal [facility] MCH (RBC) [Entitic mass] 27.6 pg 27 - 34 pg [facility] MCHC (RBC) [Mass/Vol] 33.0 g/dL 32 - 3 6 g/dL [facility] MCV (RBC) [Entitic vol] 84 fL 80 - 100 fL [facility] Platelet mean volume (Bld) [Entitic vol] 10.2 fL 7 - 12 fL [facility] Platelets (Bld) [#/Vol] 180 10*3/uL [facility] RBC (Bld) [#/Vol] 4.13 10*6/uL [facility] WBC corrected for nucl RBC Auto (Bld) [#/Vol] 7.8 [facility] COMPLETE BLOOD COUNTon 01-29 Erythrocyte distribution width (RBC) [Ratio] 15.9 % High 11.5-15.0 [facility] Comment on above: Performed By: #### P INR, 07695-7, 4679-7, FEPR, 6793-4, 2132- 9, 2276-4, 2284-8, 2731-8, 84673-5 #### [facility] ([id number]) [address], [address] [place] [address] Hematocrit (Bld) [Volume fraction] 34.6 % Low 39-49 [facility] Comment on above: Performed By: #### P INR, 12372-2, 4679-7, FEPR, 6793-4, 2132- 9, 2276-4, 2284-8, 2731-8, 30656-1 #### [facility] ([id number]) [address], [address] [place] [address] Hemoglobin (Bld) [Mass/Vol] 11.4 g/dL Low 13.0-17.0 [facility] Comment on above: Performed By: #### P INR, 11580-7, 4679-7, FEPR, 6793-4, 2132- 9, 2276-4, 2284-8, 2731-8, 98401-8 #### [facility] ([id number]) [address], [address] [place] [address] MCH (RBC) [Entitic mass] 27.6 pg Normal 27-34 [facility] Comment on above: Performed By: #### P INR, 42639-5, 4679-7, FEPR, 6793-4, 2132- 9, 2276-4, 2284-8, 2731-8, 07523-0 #### [facility] ([id number]) [address], [address] [place] [address] MCHC (RBC) [Mass/Vol] 33.0 g/dL Normal 32-36 [facility] Comment on above: Performed By: #### P INR, 16061-1, 4679-7, FEPR, 6793-4, 2132- 9, 2276-4, 2284-8, 2731-8, 34167-7 #### [facility] ([id number]) [address], [address] [place] [address] MCV (RBC) [Entitic vol] 84 fL Normal 80-100 [facility] Comment on above: Performed By: #### P INR, 39692-4, 4679-7, FEPR, 6793-4, 2132- 9, 2276-4, 2284-8, 2731-8, 62556-7 #### [facility] ([id number]) [address], [address] [place] [address] Platelet mean volume (Bld) [Entitic vol] 10.2 fL Normal 7-12 [facility] Comment on above: Performed By: #### P INR, 44175-5, 4679-7, FEPR, 6793-4, 2132- 9, 2276-4, 2284-8, 2731-8, 85926-1 #### [facility] ([id number]) [address], [address] [place] [address] Platelets (Bld) [#/Vol] 180 10*3/uL Normal 150-450 [facility] Comment on above: Performed By: #### P INR, 96390-6, 4679-7, FEPR, 6793-4, 2132- 9, 2276-4, 2284-8, 2731-8, 63490-4 #### [facility] ([id number]) [address], [address] [place] [address] RBC COUNT 4.13 X10E12/L Normal 4.10-5.70 [facility] Comment on above: Performed By: #### P INR, 38436-0, 4679-7, FEPR, 6793-4, 2132- 9, 2276-4, 2284-8, 2731-8, 11159-3 #### [facility] ([id number]) [address], [address] [place] [address] WBC (Bld) [#/Vol] 7.8 10*3/uL Normal 4.0-11.0 [facility] Comment on above: Performed By: #### P INR, 60292-3, 4679-7, FEPR, 6793-4, 2132- 9, 2276-4, 2284-8, 2731-8, 72934-7 #### [facility] [facility] ([id number]) [address], [address] [place] [address] Glucose Glucometer (BldC) [M ass/Vol]on 01-30-2024 Glucose [Mass/Vol] 279 mg/dL High 65 - 99 mg/dL [facility] Interpretation and review of laboratory results Abnormal [facility] Glucose [Mass/Vol] 279 mg/dL High 65-99 [facility] Glucose [Mass/Vol] 276 mg/dL High 65 - 99 mg/dL [facility] Interpretation and review of laboratory results Abnormal [facility] Glucose [Mass/Vol] 276 mg/dL High 65-99 [facility] Glucose [Mass/Vol] 161 mg/dL High 65 - 99 mg/dL [facility] Interpretation and review of laboratory results Abnormal [facility] Glucose [Mass/Vol] 161 mg/dL High 65-99 [facility] XR FEMUR RT 2+ VIEWSon 01-29 XR FEMUR RT 2+ VIEWS XR FEMUR RT 2+ VIEW S XR FEMUR RT 2+ VIEWS Clinical history:REMOVAL HARDWARE INTRAMEDULLARY NAIL/KATERYNA FEMUR right hip pain Comparison: 01/29/2024 Impression: Postoperative changes with new intramedullary kateryna placement. Near anatomic alignment. No evidence of immediate hardware complication. Finalized by Marc Paredes MD on 01/30/2024 1:43 PM Normal [facility] XR FEMUR RT 2+ VIEWS XR FEMUR RT 2+ VIEW S Clinical history: Fracture. Right femur: 01/29/2024 COMPARISON: 01/17/2024 FINDINGS: Patient status post internal fixation of a proximal femoral fracture. No hardware complication is evident. Fracture alignment appears near-anatomic, characterization is difficult. There is no focal osseous abnormality in the distal femur. IMPRESSION: Status post internal fixation of the proximal femoral fracture. Finalized by Jun Ortega MD on 01/30/2024 6:37 AM Normal [facility] XR Femur - right 2 Viewson 0 01-30-2024 XR FEMUR RT 2+ VIEWS Clinical history:REMOVAL HARDWARE INTRAMEDULLARY NAIL/KATERYNA FEMUR right hip pain Comparison: 01/29/2024 Impression: Postoperative changes with new intramedullary kateryna placement. Near anatomic alignment. No evidence of immediate hardware complication. Finalized by Marc Paredes MD on 01/30/2024 1:43 PM [facility] Marc Paredes MD - 01/30/2024 XR FEMUR RT 2+ VIEWS Clinical history:REMOVAL HARDWARE INTRAMEDULLARY NAIL/KATERYNA FEMUR right hip pain Comparison: 01/29/2024 Impression: Postoperative changes with new intramedullary kateryna placement. Near anatomic alignment. No evidence of immediate hardware complication. Finalized by Marc Paredes MD on 01/30/2024 1:43 PM [facility] Jun Ortega MD - 01/30/2024 Clinical history: Postop hardware evaluation Right femur: 01/30/2024 COMPARISON: 01/29/2024 FINDINGS: 2 views of the femur were obtained. 4 images are submitted. An intramedullary nail traverses the proximal femoral fracture. Cerclage wires present in the proximal shaft region. No hardware complication is evident. Fracture alignment is near anatomic. Hip and knee alignment are anatomic with degenerative changes. IMPRESSION: Status post internal fixation of the proximal femoral fracture. Finalized by Jun Ortega MD on 01/30/2024 1:28 PM [facility] Radiology Study observation (narrative) [facility] Radiology Study observation (narrative) [facility] XR Femur - right 2 ViewsOrde red By: Marc Paredes on 01-30-2024 [facility] Work Phone: XR Femur - right 2 ViewsOrde red By: Jun Ortega on 01-30-2024 [facility] Work Phone: APTTon 01-29-2024 aPTT Coag (PPP) [Time] 29 s [facility] BASIC METABOLIC PANLon 01-28 Anion gap [Moles/Vol] 14 mmol/L Normal 5-15 [facility] Comment on above: Performed By: #### P INR, 38146-4, 4679-7, FEPR, 6793-4, 2132- 9, 2276-4, 2284-8, 2731-8, 69051-4 #### [facility] ([id number]) [address], [address] [place] [address] Calcium [Mass/Vol] 9.5 mg/dL Normal 8.5-10.5 [facility] Comment on above: Performed By: #### P INR, 82933-0, 4679-7, FEPR, 6793-4, 2132- 9, 2276-4, 2284-8, 2731-8, 73961-6 #### [facility] ([id number]) [address], [address] [place] [address] Chloride [Moles/Vol] 95 mmol/L Low 98-109 [facility] Comment on above: Performed By: #### P INR, 20681-5, 4679-7, FEPR, 6793-4, 2132- 9, 2276-4, 2284-8, 2731-8, 34522-5 #### [facility] ([id number]) [address], [address] [place] [address] CO2 [Moles/Vol] 22 mmol/L Normal 22-32 [facility] Comment on above: Performed By: #### P INR, 16154-5, 4679-7, FEPR, 6793-4, 2132- 9, 2276-4, 2284-8, 2731-8, 27678-0 #### [facility] ([id number]) [address], [address] [place] [address] Creatinine [Mass/Vol] 0.54 mg/dL Low 0.60-1.30 [facility] Comment on above: Result Comment: METH OD TRACEABLE TO IDMS STANDARD Performed By: #### P INR, 55871-7, 4679-7, FEPR, 6793-4, 2132-9, 2276-4, 2284-8, 2731-8, 42126-5 #### [facility] ([id number]) [address], [address] [place] [address] eGFR (CKD-EPI) NON-RACE DEPENDENT >90 Normal >59 [facility] Comment on above: Result Comment: Reported eGFR is based on the CKD-EPI 2020 equation that does not use a race coefficient. Performed By: #### P INR, 32886-9, 4679-7, FEPR, 6793-4, 2132-9, 2276-4, 2284-8, 2731-8, 66542-7 #### [facility] ([id number]) [address], [address] [place] [address] Glucose [Mass/Vol] 193 mg/dL High 65-99 [facility] Comment on above: Performed By: #### P INR, 60663-3, 4679-7, FEPR, 6793-4, 2132- 9, 2276-4, 2284-8, 2731-8, 63402-3 #### [facility] ([id number]) [address], [address] [place] [address] Potassium [Moles/Vol] 3.7 mmol/L Normal 3.5-5.0 [facility] Comment on above: Performed By: #### P INR, 76594-6, 4679-7, FEPR, 6793-4, 2132- 9, 2276-4, 2284-8, 2731-8, 29693-4 #### [facility] ([id number]) [address], [address] [place] [address] Sodium [Moles/Vol] 131 mmol/L Low 134-146 [facility] Comment on above: Performed By: #### P INR, 36917-6, 4679-7, FEPR, 6793-4, 2132- 9, 2276-4, 2284-8, 2731-8, 31684-4 #### [facility] ([id number]) [address], [address] [place] [address] Urea nitrogen [Mass/Vol] 9 mg/dL Normal 5-23 [facility] Comment on above: Performed By: #### P INR, 13988-2, 4679-7, FEPR, 6793-4, 2132- 9, 2276-4, 2284-8, 2731-8, 06926-4 #### [facility] ([id number]) [address], [address] [place] [address] Anion gap [Moles/Vol] 12 mmol/L Normal 5-15 [facility] Comment on above: Performed By: #### P INR, 64837-3, 4679-7, FEPR, 6793-4, 2132- 9, 2276-4, 2284-8, 2731-8, 00263-7 #### [facility] ([id number]) [address], [address] [place] [address] Calcium [Mass/Vol] 9.4 mg/dL Normal 8.5-10.5 [facility] Comment on above: Performed By: #### P INR, 35175-0, 4679-7, FEPR, 6793-4, 2132- 9, 2276-4, 2284-8, 2731-8, 17447-4 #### [facility] ([id number]) [address], [address] [place] [address] Chloride [Moles/Vol] 95 mmol/L Low 98-109 [facility] Comment on above: Performed By: #### P INR, 95384-1, 4679-7, FEPR, 6793-4, 2132- 9, 2276-4, 2284-8, 2731-8, 89031-2 #### [facility] ([id number]) [address], [address] [place] [address] CO2 [Moles/Vol] 24 mmol/L Normal 22-32 [facility] Comment on above: Performed By: #### P INR, 88592-5, 4679-7, FEPR, 6793-4, 2132- 9, 2276-4, 2284-8, 2731-8, 53804-6 #### [facility] ([id number]) [address], [address] [place] [address] Creatinine [Mass/Vol] 0.51 mg/dL Low 0.60-1.30 [facility] Comment on above: Result Comment: METH OD TRACEABLE TO IDMS STANDARD Performed By: #### P INR, 36870-7, 4679-7, FEPR, 6793-4, 2132-9, 2276-4, 2284-8, 2731-8, 77735-2 #### [facility] ([id number]) [address], [address] [place] [address] eGFR (CKD-EPI) NON-RACE DEPENDENT >90 Normal >59 [facility] Comment on above: Result Comment: Reported eGFR is based on the CKD-EPI 2020 equation that does not use a race coefficient. Performed By: #### P INR, 90730-0, 4679-7, FEPR, 6793-4, 2132-9, 2276-4, 2284-8, 2731-8, 64962-9 #### [facility] ([id number]) [address], [address] [place] [address] Glucose [Mass/Vol] 212 mg/dL High 65-99 [facility] Comment on above: Performed By: #### P INR, 87510-0, 4679-7, FEPR, 6793-4, 2132- 9, 2276-4, 2284-8, 2731-8, 66875-8 #### [facility] ([id number]) [address], [address] [place] [address] Potassium [Moles/Vol] 3.7 mmol/L Normal 3.5-5.0 [facility] Comment on above: Performed By: #### P INR, 48900-7, 4679-7, FEPR, 6793-4, 2132- 9, 2276-4, 2284-8, 2731-8, 00218-9 #### [facility] ([id number]) [address], [address] [place] [address] Sodium [Moles/Vol] 131 mmol/L Low 134-146 [facility] Comment on above: Performed By: #### P INR, 54906-8, 4679-7, FEPR, 6793-4, 2132- 9, 2276-4, 2284-8, 2731-8, 74099-7 #### [facility] ([id number]) [address], [address] [place] [address] Urea nitrogen [Mass/Vol] 9 mg/dL Normal 5-23 [facility] Comment on above: Performed By: #### P INR, 36357-5, 4679-7, FEPR, 6793-4, 2132- 9, 2276-4, 2284-8, 2731-8, 27996-3 #### [facility] ([id number]) [address], [address] [place] [address] Basic Metabolic Panelon 01-12 Anion gap [Moles/Vol] 14 mmol/L 5 - 15 mmol/L [facility] Calcium [Mass/Vol] 9.5 mg/dL 8.5 - 10. 5 mg/dL [facility] Chloride [Moles/Vol] 95 mmol/L Low 98 - 10 9 mmol/L [facility] CO2 [Moles/Vol] 22 mmol/L 22 - 32 mmol/L [facility] Creatinine [Mass/Vol] 0.54 mg/dL Low 0.60 - 1.30 mg/dL [facility] Comment on above: METHOD TRACEABLE TO IDKS STANDARD eGFR (CKD-EPI)non-race dependent - PINF [facility] Comment on above: Reported eGFR is based on the CKD-EPI 2020 equation that does not use a race coefficient. Glucose [Mass/Vol] 193 mg/dL High 65 - 99 mg/dL [facility] Interpretation and review of laboratory results Abnormal [facility] Potassium [Moles/Vol] 3.7 mmol/L 3.5 - 5.0 mmol/L [facility] Sodium [Moles/Vol] 131 mmol/L Low 134 - 146 mmol/L [facility] Urea nitrogen [Mass/Vol] 9 mg/dL 5 - 23 mg/dL [facility] CBC AND AUTO DIFFon 01-29-20 24 ABSOLUTE BASOPHIL 0.1 X10E9/L Normal 0.0-0.2 [facility] Comment on above: Performed By: #### P INR, 12267-5, 4679-7, FEPR, 6793-4, 2132- 9, 2276-4, 2284-8, 2731-8, 18968-9 #### [facility] ([id number]) [address], [address] [place] [address] ABSOLUTE NEUTROPHIL 7.4 X10E9/L High 1.5-6.6 [facility] Comment on above: Performed By: #### P INR, 97984-2, 4679-7, FEPR, 6793-4, 2132- 9, 2276-4, 2284-8, 2731-8, 07537-3 #### [facility] ([id number]) [address], [address] [place] [address] Basophils/100 WBC (Bld) 0.6 % Normal [facility] Comment on above: Performed By: #### P INR, 13518-8, 4679-7, FEPR, 6793-4, 2132- 9, 2276-4, 2284-8, 2731-8, 84851-2 #### [facility] ([id number]) [address], [address] [place] [address] Eosinophils (Bld) [#/Vol] 0.0 10*3/uL Normal 0.0-0.4 [facility] Comment on above: Performed By: #### P INR, 28708-8, 4679-7, FEPR, 6793-4, 2132- 9, 2276-4, 2284-8, 2731-8, 87838-4 #### [facility] ([id number]) [address], [address] [place] [address] Eosinophils/100 WBC (Bld) 0.2 % Normal [facility] Comment on above: Performed By: #### P INR, 11512-9, 4679-7, FEPR, 6793-4, 2132- 9, 2276-4, 2284-8, 2731-8, 78427-0 #### [facility] ([id number]) [address], [address] [place] [address] Erythrocyte distribution width (RBC) [Ratio] 15.6 % High 11.5-15.0 [facility] Comment on above: Performed By: #### P INR, 33706-4, 4679-7, FEPR, 6793-4, 2132- 9, 2276-4, 2284-8, 2731-8, 15298-4 #### [facility] ([id number]) [address], [address] [place] [address] Hematocrit (Bld) [Volume fraction] 33.6 % Low 39-49 [facility] Comment on above: Performed By: #### P INR, 98412-5, 4679-7, FEPR, 6793-4, 2132- 9, 2276-4, 2284-8, 2731-8, 00145-1 #### [facility] ([id number]) [address], [address] [place] [address] Hemoglobin (Bld) [Mass/Vol] 11.9 g/dL Low 13.0-17.0 [facility] Comment on above: Performed By: #### P INR, 70086-3, 4679-7, FEPR, 6793-4, 2132- 9, 2276-4, 2284-8, 2731-8, 13575-4 #### [facility] ([id number]) [address], [address] [place] [address] Lymphocytes (Bld) [#/Vol] 1.4 10*3/uL Normal 1.0-3.5 [facility] Comment on above: Performed By: #### P INR, 92532-7, 4679-7, FEPR, 6793-4, 2132- 9, 2276-4, 2284-8, 2731-8, 05474-9 #### [facility] ([id number]) [address], [address] [place] [address] Lymphocytes/100 WBC (Bld) 14.6 % Normal [facility] Comment on above: Performed By: #### P INR, 20179-0, 4679-7, FEPR, 6793-4, 2132- 9, 2276-4, 2284-8, 2731-8, 49071-9 #### [facility] ([id number]) [address], [address] [place] [address] MCH (RBC) [Entitic mass] 29.0 pg Normal 27-34 [facility] Comment on above: Performed By: #### P INR, 29798-4, 4679-7, FEPR, 6793-4, 2132- 9, 2276-4, 2284-8, 2731-8, 86544-7 #### [facility] ([id number]) [address], [address] [place] [address] MCHC (RBC) [Mass/Vol] 35.5 g/dL Normal 32-36 [facility] Comment on above: Performed By: #### P INR, 92430-5, 4679-7, FEPR, 6793-4, 2132- 9, 2276-4, 2284-8, 2731-8, 37502-2 #### [facility] ([id number]) [address], [address] [place] [address] MCV (RBC) [Entitic vol] 82 fL Normal 80-100 [facility] Comment on above: Performed By: #### P INR, 90416-7, 4679-7, FEPR, 6793-4, 2132- 9, 2276-4, 2284-8, 2731-8, 66226-4 #### [facility] ([id number]) [address], [address] [place] [address] Monocytes (Bld) [#/Vol] 0.6 10*3/uL Normal 0-0.9 [facility] Comment on above: Performed By: #### P INR, 68048-3, 4679-7, FEPR, 6793-4, 2132- 9, 2276-4, 2284-8, 2731-8, 92930-4 #### [facility] ([id number]) [address], [address] [place] [address] Monocytes/100 WBC (Bld) 6.6 % Normal [facility] Comment on above: Performed By: #### P INR, 87794-6, 4679-7, FEPR, 6793-4, 2132- 9, 2276-4, 2284-8, 2731-8, 76288-2 #### [facility] ([id number]) [address], [address] [place] [address] Neutrophils/100 WBC (Bld) 78.0 % Normal [facility] Comment on above: Performed By: #### P INR, 32736-8, 4679-7, FEPR, 6793-4, 2132- 9, 2276-4, 2284-8, 2731-8, 32121-9 #### [facility] ([id number]) [address], [address] [place] [address] Platelet mean volume (Bld) [Entitic vol] 10.1 fL Normal 7-12 [facility] Comment on above: Performed By: #### P INR, 61569-6, 4679-7, FEPR, 6793-4, 2132- 9, 2276-4, 2284-8, 2731-8, 96154-8 #### [facility] ([id number]) [address], [address] [place] [address] Platelets (Bld) [#/Vol] 192 10*3/uL Normal 150-450 [facility] Comment on above: Performed By: #### P INR, 46566-6, 4679-7, FEPR, 6793-4, 2132- 9, 2276-4, 2284-8, 2731-8, 12318-2 #### [facility] ([id number]) [address], [address] [place] [address] RBC COUNT 4.11 X10E12/L Normal 4.10-5.70 [facility] Comment on above: Performed By: #### P INR, 25473-1, 4679-7, FEPR, 6793-4, 2132- 9, 2276-4, 2284-8, 2731-8, 54936-2 #### [facility] ([id number]) [address], [address] [place] [address] WBC (Bld) [#/Vol] 9.5 10*3/uL Normal 4.0-11.0 [facility] Comment on above: Performed By: #### P INR, 67445-7, 4679-7, FEPR, 6793-4, 2132- 9, 2276-4, 2284-8, 2731-8, 97668-0 #### [facility] ([id number]) [address], [address] [place] [address] CBC auto differentialon 01-12 Basophils (Bld) [#/Vol] 0.1 10*3/uL [facility] Basophils/100 WBC (Bld) 0.6 % [facility] Eosinophils (Bld) [#/Vol] 0.0 10*3/uL [facility] Eosinophils/100 WBC (Bld) 0.2 % [facility] Erythrocyte distribution width (RBC) [Ratio] 15.6 % High 11.5 - 15.0 % [facility] Hematocrit (Bld) [Volume fraction] 33.6 % Low 39 - 49 % [facility] Hemoglobin (Bld) [Mass/Vol] 11.9 g/dL Low 13.0 - 17.0 g/dL [facility] Interpretation and review of laboratory results Abnormal [facility] Lymphocytes (Bld) [#/Vol] 1.4 10*3/uL [facility] Lymphocytes/100 WBC (Bld) 14.6 % [facility] MCH (RBC) [Entitic mass] 29.0 pg 27 - 34 pg [facility] MCHC (RBC) [Mass/Vol] 35.5 g/dL 32 - 3 6 g/dL [facility] MCV (RBC) [Entitic vol] 82 fL 80 - 100 fL [facility] Monocytes (Bld) [#/Vol] 0.6 10*3/uL [facility] Monocytes/100 WBC (Bld) 6.6 % [facility] Neutrophils (Bld) [#/Vol] 7.4 10*3/uL High [facility] Neutrophils/100 WBC (Bld) 78.0 % [facility] Platelet mean volume (Bld) [Entitic vol] 10.1 fL 7 - 12 fL [facility] Platelets (Bld) [#/Vol] 192 10*3/uL [facility] RBC (Bld) [#/Vol] 4.11 10*6/uL [facility] WBC corrected for nucl RBC Auto (Bld) [#/Vol] 9.5 [facility] COMPLETE BLOOD COUNTon 01-28 Erythrocyte distribution width (RBC) [Ratio] 15.9 % High 11.5-15.0 [facility] Comment on above: Performed By: #### P INR, 54528-6, 4679-7, FEPR, 6793-4, 2132- 9, 2276-4, 2284-8, 2731-8, 88689-8 #### [facility] ([id number]) [address], [address] [place] [address] Hematocrit (Bld) [Volume fraction] 33.1 % Low 39-49 [facility] Comment on above: Performed By: #### P INR, 60206-4, 4679-7, FEPR, 6793-4, 2132- 9, 2276-4, 2284-8, 2731-8, 00301-6 #### [facility] ([id number]) [address], [address] [place] [address] Hemoglobin (Bld) [Mass/Vol] 11.4 g/dL Low 13.0-17.0 [facility] Comment on above: Performed By: #### P INR, 48478-2, 4679-7, FEPR, 6793-4, 2132- 9, 2276-4, 2284-8, 2731-8, 69385-0 #### [facility] ([id number]) [address], [address] [place] [address] MCH (RBC) [Entitic mass] 28.7 pg Normal 27-34 [facility] Comment on above: Performed By: #### P INR, 15529-1, 4679-7, FEPR, 6793-4, 2132- 9, 2276-4, 2284-8, 2731-8, 46524-7 #### [facility] ([id number]) [address], [address] [place] [address] MCHC (RBC) [Mass/Vol] 34.4 g/dL Normal 32-36 [facility] Comment on above: Performed By: #### P INR, 66717-8, 4679-7, FEPR, 6793-4, 2132- 9, 2276-4, 2284-8, 2731-8, 94665-9 #### [facility] ([id number]) [address], [address] [place] [address] MCV (RBC) [Entitic vol] 83 fL Normal 80-100 [facility] Comment on above: Performed By: #### P INR, 29935-3, 4679-7, FEPR, 6793-4, 2132- 9, 2276-4, 2284-8, 2731-8, 25421-4 #### [facility] ([id number]) [address], [address] [place] [address] Platelet mean volume (Bld) [Entitic vol] 10.8 fL Normal 7-12 [facility] Comment on above: Performed By: #### P INR, 52379-6, 4679-7, FEPR, 6793-4, 2132- 9, 2276-4, 2284-8, 2731-8, 23985-6 #### [facility] ([id number]) [address], [address] [place] [address] Platelets (Bld) [#/Vol] 185 10*3/uL Normal 150-450 [facility] Comment on above: Performed By: #### P INR, 44010-4, 4679-7, FEPR, 6793-4, 2132- 9, 2276-4, 2284-8, 2731-8, 84887-1 #### [facility] ([id number]) [address], [address] [place] [address] RBC COUNT 3.97 X10E12/L Low 4.10-5.70 [facility] Comment on above: Performed By: #### P INR, 94824-3, 4679-7, FEPR, 6793-4, 2132- 9, 2276-4, 2284-8, 2731-8, 20246-2 #### [facility] ([id number]) [address], [address] [place] [address] WBC (Bld) [#/Vol] 10.2 10*3/uL Normal 4.0-11.0 [facility] Comment on above: Performed By: #### P INR, 93300-7, 4679-7, FEPR, 6793-4, 2132- 9, 2276-4, 2284-8, 2731-8, 85857-5 #### [facility] ([id number]) [address], [address] [place] [address] Cobalamin (Vitamin B12) [Mas s/Vol]on 01-29-2024 [facility] FERRITINon 01-29-2024 Ferritin [Mass/Vol] 220 ng/mL Normal 24-336 [facility] Comment on above: Performed By: #### P INR, 59213-7, 4679-7, FEPR, 6793-4, 2132- 9, 2276-4, 2284-8, 2731-8, 65390-7 #### [facility] ([id number]) [address], [address] [place] [address] Ferritinon 01-29-2024 Ferritin [Mass/Vol] 220 ng/mL 24 - 336 ng/mL [facility] Ferritin [Mass/Vol]on 2023 [facility] Folateon 01-29-2024 Folate [Mass/Vol] 8.4 ng/mL 5.8 - PINF ng/mL [facility] Comment on above: NEW REFERENCE RANGE Folate [Mass/Vol]on 01-29-20 24 [facility] FOLIC ACID 8.4 ng/mL Normal >5.8 [facility] Comment on above: Result Comment: NEW REFERENCE RANGE Performed By: #### P INR, 79338-1, 4679-7, FEPR, 6793-4, 2132-9, 2276-4, 2284-8, 2731-8, 05002-9 #### [facility] ([id number]) [address], [address] [place] [address] Glucose Glucometer (BldC) [M ass/Vol]on 01-29-2024 Glucose [Mass/Vol] 170 mg/dL High 65 - 99 mg/dL [facility] Interpretation and review of laboratory results Abnormal [facility] Glucose [Mass/Vol] 170 mg/dL High 65-99 [facility] Glucose [Mass/Vol] 185 mg/dL High 65 - 99 mg/dL [facility] Interpretation and review of laboratory results Abnormal [facility] Glucose [Mass/Vol] 185 mg/dL High 65-99 [facility] Glucose [Mass/Vol] 204 mg/dL High 65 - 99 mg/dL [facility] Interpretation and review of laboratory results Abnormal [facility] Glucose [Mass/Vol] 204 mg/dL High 65-99 [facility] Glucose [Mass/Vol] 199 mg/dL High 65-99 [facility] IRON PROFILEon 01-29-2024 Iron [Mass/Vol] 17 ug/dL Low 50-212 [facility] Comment on above: Performed By: #### P INR, 69445-2, 4679-7, FEPR, 6793-4, 2- 9, 2276-4, 2284-8, 2731-8, 84387-6 #### [facility] ([id number]) [address], [address] [place] [address] IRON BINDING 357 ug/dL Normal 250-425 [facility] Comment on above: Performed By: #### P INR, 10020-1, 4679-7, FEPR, 6793-4, 2132- 9, 2276-4, 2284-8, 2731-8, 13122-9 #### [facility] ([id number]) [address], [address] [place] [address] IRON SATURATION 5 % SATURATION Low 20-50 [facility] Comment on above: Performed By: #### P INR, 98279-5, 4679-7, FEPR, 6793-4, 2132- 9, 2276-4, 2284-8, 2731-8, 92505-3 #### [facility] ([id number]) [address] [address] [place] [address] Iron and TIBCon 01-29-2024 Iron [Mass/Vol] 17 ug/dL Low 50 - 212 ug/dL [facility] Iron binding capacity [Mass/Vol] 357 ug/dL 250 - 425 ug/dL [facility] Iron saturation [Mass fraction] 5 Low [facility] No Panel Informationon 01-28 Interpretation and review of laboratory results Abnormal [facility] PROTIME AND INRon 01-29-2024 INR Coag (PPP) [Relative time] 1.4 {INR} High 0.8-1.1 [facility] Comment on above: Performed By: #### P INR, 76145-2, 4679-7, FEPR, 6793-4, 2132- 9, 2276-4, 2284-8, 2731-8, 02343-5 #### [facility] ([id number]) [address], [address] [place] [address] PT Coag (PPP) [Time] 15.6 s High 9.8-13.2 [facility] Comment on above: Performed By: #### P INR, 56626-7, 4679-7, FEPR, 6793-4, 2132- 9, 2276-4, 2284-8, 2731-8, 64593-3 #### [facility] ([id number]) [address], [address] [place] [address] Prealbuminon 01-29-2024 Prealbumin IA [Mass/Vol] 9 mg/dL Low 18 - 45 mg/dL [facility] Prealbumin IA [Mass/Vol]on 0 01-29-2024 Prealbumin [Mass/Vol] 9 mg/dL Low 18-45 [facility] Comment on above: Performed By: #### P INR, 29846-8, 4679-7, FEPR, 6793-4, 2132- 9, 2276-4, 2284-8, 2731-8, 03737-4 #### [facility] ([id number]) [address], [address] [place] [address] Protime & INRon 01-29-2024 INR Coag (PPP) [Relative time] 1.4 {INR} High [facility] Interpretation and review of laboratory results Abnormal [facility] PT Coag (PPP) [Time] 15.6 s High [facility] Reticulocyteson 01-29-2024 Reticulocytes/100 RBC (Bld) 3.9 % High 0.4 - 2.2 % [facility] Reticulocytes/100 RBC (Bld)o n 01-29-2024 Interpretation and review of laboratory results Abnormal [facility] RETICULOCYTE COUNT 3.9 % High 0.4-2.2 [facility] Comment on above: Performed By: #### P INR, 79864-8, 4679-7, FEPR, 6793-4, 2132- 9, 2276-4, 4-8, 2731-8, 15466-9 #### [facility] ([id number]) [address], [address] [place] [address] Type and screen(includes ind irect yolanda)on 01-29-2024 ABO O [facility] Rh Nom (Bld) Positive [facility] URINALYSISon 01-29-2024 Bilirubin Ql (U) Negative Normal NEG [facility] Comment on above: Performed By: #### P INR, 25455-7, 4679-7, FEPR, 6793-4, 2132- 9, 2276-4, 2284-8, 2731-8, 38582-4 #### [facility] ([id number]) [address], [address] [place] [address] BLOOD/HGB Negative Normal NEG [facility] Comment on above: Performed By: #### P INR, 30430-7, 4679-7, FEPR, 6793-4, 2132- 9, 2276-4, 2284-8, 2731-8, 81779-2 #### [facility] ([id number]) [address], [address] [place] [address] Color (U) YELLOW Normal YELLOW [facility] Comment on above: Performed By: #### P INR, 67806-6, 4679-7, FEPR, 6793-4, 2132- 9, 2276-4, 2284-8, 2731-8, 74836-6 #### [facility] ([id number]) [address], [address] [place] [address] Glucose Ql (U) Negative Normal NEG [facility] Comment on above: Performed By: #### P INR, 71838-1, 4679-7, FEPR, 6793-4, 2132- 9, 2276-4, 2284-8, 2731-8, 62901-3 #### [facility] ([id number]) [address], [address] [place] [address] Ketones Ql (U) Negative Normal NEG [facility] Comment on above: Performed By: #### P INR, 63209-9, 4679-7, FEPR, 6793-4, 2132- 9, 2276-4, 2284-8, 2731-8, 42991-7 #### [facility] ([id number]) [address], [address] [place] [address] Leukocyte esterase Test strip Ql (U) Negative Normal NEG [facility] Comment on above: Performed By: #### P INR, 84640-0, 4679-7, FEPR, 6793-4, 2132- 9, 2276-4, 2284-8, 2731-8, 01241-2 #### [facility] ([id number]) [address], [address] [place] [address] Nitrite Ql (U) Negative Normal NEG [facility] Comment on above: Performed By: #### P INR, 03503-7, 4679-7, FEPR, 6793-4, 2132- 9, 2276-4, 2284-8, 2731-8, 94793-6 #### [facility] ([id number]) [address], [address] [place] [address] pH (U) 6.5 [pH] Normal 5.0-8.5 [facility] Comment on above: Performed By: #### P INR, 31085-3, 4679-7, FEPR, 6793-4, 2132- 9, 2276-4, 2284-8, 2731-8, 46954-5 #### [facility] ([id number]) [address], [address] [place] [address] Protein Ql (U) Negative Normal NEG [facility] Comment on above: Performed By: #### P INR, 24366-6, 4679-7, FEPR, 6793-4, 2132- 9, 2276-4, 2284-8, 2731-8, 83271-8 #### [facility] ([id number]) [address], [address] [place] [address] Specific gravity (U) [Rel density] 1.018 Normal 1.003-1.03 5 [facility] Comment on above: Performed By: #### P INR, 59011-2, 4679-7, FEPR, 6793-4, 2132- 9, 2276-4, 2284-8, 2731-8, 01414-7 #### [facility] ([id number]) [address], [address] [place] [address] TURBIDITY CLEAR Normal CLEAR [facility] Comment on above: Performed By: #### P INR, 81194-2, 4679-7, FEPR, 6793-4, 2132- 9, 2276-4, 2284-8, 2731-8, 66408-0 #### [facility] ([id number]) [address], [address] [place] [address] Urobilinogen Qn (U) 4 {Caroline'U}/dL High <1.1 [facility] Comment on above: Performed By: #### P INR, 48103-5, 4679-7, FEPR, 6793-4, 2132- 9, 2276-4, 2284-8, 2731-8, 39594-8 #### [facility] ([id number]) [address], [address] [place] [address] Urinalysison 01-29-2024 Bilirubin Ql (U) Negative Negative^N egative [facility] Color (U) YELLOW YELLOW^YEL LOW [facility] Glucose (U) [Mass/Vol] Negative Negative^N egative mg/dL [facility] Hemoglobin Auto test strip Ql (U) Negative Negative^N egative [facility] Interpretation and review of laboratory results Abnormal [facility] Ketones (U) [Mass/Vol] Negative Negative^N egative mg/dL [facility] Leukocyte esterase Auto test strip Ql (U) Negative Negative^N egative [facility] Nitrite Auto test strip Ql (U) Negative Negative^N egative [facility] pH (U) 6.5 [pH] 5.0 - 8.5 [facility] Protein (U) [Mass/Vol] Negative Negative^N egative mg/dL [facility] Specific gravity Refractometry automated (U) [Rel density] 1.018 1.003 - 1.035 [facility] Turbidity Ql (U) CLEAR CLEAR^LEANDRA R [facility] Urobilinogen Qn (U) 4 High NINF [facility] VITAMIN B12on 01-29-2024 Cobalamin (Vitamin B12) [Mass/Vol] 307 pg/mL Normal 180-914 [facility] Comment on above: Performed By: #### P INR, 09926-3, 4679-7, FEPR, 6793-4, 2132- 9, 2276-4, 2284-8, 2731-8, 08547-6 #### [facility] ([id number]) [address] [place] [address], [address] [place] [address] Vitamin B12on 01-29-2024 Cobalamin (Vitamin B12) [Mass/Vol] 307 pg/mL 180 - 914 pg/mL [facility] Vitamin D 25 hydroxyon 01-28 Vitamin D+Metabolites [Mass/Vol] 31.7 ng/mL 30 - 100 ng/mL [facility] Comment on above: Vitamin D status 25 [place] Vitamin D Deficiency <20 ng/mL Insufficiency 20-29 ng/mL Sufficiency 30-100 ng/mL Toxicity >100 ng/mL NOTE: A pediatric reference range has not been established by the electron beam operator of this kit. The [place] [employer] recommends a Vitamin D level of = or >20ng/mL in infants and children. Vitamin D+Metabolites [Mass/ Vol]on 01-29-2024 [facility] VITAMIN D 25 HYD TOT 31.7 ng/mL Normal 30-100 [facility] Comment on above: Result Comment: Vitamin D status 25 [place] Vitamin D Deficiency <20 ng/mL Insufficiency 20-29 ng/mL Sufficiency 30-100 ng/mL Toxicity >100 ng/mL NOTE: A pediatric reference range has not been established by the electron beam operator of this kit. The [place] [employer] recommends a Vitamin D level of = or >20ng/mL in infants and children. Performed By: #### P INR, 40265-3, 4679-7, FEPR, 6793-4, 2132-9, 2276-4, 2284-8, 2731-8, 91018-5 #### [facility] ([id number]) [address], [address] [place] [address] aPTT Coag (PPP) [Time]on aPTT Coag (Bld) [Time] 29 s Normal 26-37 [facility] Comment on above: Performed By: #### P INR, 44750-4, 4679-7, FEPR, 6793-4, 2132- 9, 2276-4, 2284-8, 2731-8, 52856-5 #### [facility] ([id number]) [address], [address] [place] [address] Glucose Glucometer (dC) [M ass/Vol]on 01-28-2024 Glucose [Mass/Vol] 194 mg/dL High 65-99 [facility] Glucose [Mass/Vol] 244 mg/dL High 65-99 [facility] Glucose [Mass/Vol] 203 mg/dL High 65-99 [facility] CBC AND AUTO DIFFon 01-27-20 24 ABSOLUTE BASOPHIL 0.0 X10E9/L Normal 0.0-0.2 [facility] Comment on above: Performed By: #### P INR, 25843-1, 4679-7, FEPR, 6793-4, 2132- 9, 2276-4, 2284-8, 2731-8, 12406-6 #### [facility] ([id number]) [address], [address] [place] [address] ABSOLUTE NEUTROPHIL 6.2 X10E9/L Normal 1.5-6.6 [facility] Comment on above: Performed By: #### P INR, 43550-6, 4679-7, FEPR, 6793-4, 2132- 9, 2276-4, 2284-8, 2731-8, 94914-0 #### [facility] ([id number]) [address], [address] [place] [address] Basophils/100 WBC (Bld) 0.5 % Normal [facility] Comment on above: Performed By: #### P INR, 66361-2, 4679-7, FEPR, 6793-4, 2132- 9, 2276-4, 2284-8, 2731-8, 07555-3 #### [facility] ([id number]) [address], [address] [place] [address] Eosinophils (Bld) [#/Vol] 0.0 10*3/uL Normal 0.0-0.4 [facility] Comment on above: Performed By: #### P INR, 78750-1, 4679-7, FEPR, 6793-4, 2132- 9, 2276-4, 2284-8, 2731-8, 91165-7 #### [facility] ([id number]) [address], [address] [place] [address] Eosinophils/100 WBC (Bld) 0.2 % Normal [facility] Comment on above: Performed By: #### P INR, 67617-9, 4679-7, FEPR, 6793-4, 2132- 9, 2276-4, 2284-8, 2731-8, 19336-8 #### [facility] ([id number]) [address], [address] [place] [address] Erythrocyte distribution width (RBC) [Ratio] 16.0 % High 11.5-15.0 [facility] Comment on above: Performed By: #### P INR, 60443-0, 4679-7, FEPR, 6793-4, 2132- 9, 2276-4, 2284-8, 2731-8, 93845-7 #### [facility] ([id number]) [address], [address] [place] [address] Hematocrit (Bld) [Volume fraction] 30.5 % Low 39-49 [facility] Comment on above: Performed By: #### P INR, 46626-7, 4679-7, FEPR, 6793-4, 2132- 9, 2276-4, 2284-8, 2731-8, 86689-9 #### [facility] ([id number]) [address], [facility] [address] [place] [address] Hemoglobin (Bld) [Mass/Vol] 10.5 g/dL Low 13.0-17.0 [facility] Comment on above: Performed By: #### P INR, 80542-5, 4679-7, FEPR, 6793-4, 2132- 9, 2276-4, 2284-8, 2731-8, 26779-9 #### [facility] ([id number]) [address] [address] Lymphocytes (Bld) [#/Vol] 1.7 10*3/uL Normal 1.0-3.5 [facility] Comment on above: Performed By: #### P INR, 25593-2, 4679-7, FEPR, 6793-4, 2132- 9, 2276-4, 2284-8, 2731-8, 35331-4 #### [facility] ([id number]) [address] [address] Lymphocytes/100 WBC (Bld) 19.8 % Normal [facility] Comment on above: Performed By: #### P INR, 52014-7, 4679-7, FEPR, 6793-4, 2132- 9, 2276-4, 2284-8, 2731-8, 11832-9 #### [facility] ([id number]) [address] [place] [address] MCH (RBC) [Entitic mass] 28.6 pg Normal 27-34 [facility] Comment on above: Performed By: #### P INR, 86058-6, 4679-7, FEPR, 6793-4, 2132- 9, 2276-4, 2284-8, 2731-8, 24827-4 #### [facility] ([id number]) [address], [address] [place] [address] MCHC (RBC) [Mass/Vol] 34.3 g/dL Normal 32-36 [facility] Comment on above: Performed By: #### P INR, 09671-9, 4679-7, FEPR, 6793-4, 2132- 9, 2276-4, 2284-8, 2731-8, 70443-9 #### [facility] ([id number]) [address], [address] [place] [address] MCV (RBC) [Entitic vol] 83 fL Normal 80-100 [facility] Comment on above: Performed By: #### P INR, 37607-2, 4679-7, FEPR, 6793-4, 2132- 9, 2276-4, 2284-8, 2731-8, 15789-8 #### [facility] ([id number]) [address], [address] [place] [address] Monocytes (Bld) [#/Vol] 0.6 10*3/uL Normal 0-0.9 [facility] Comment on above: Performed By: #### P INR, 21693-4, 4679-7, FEPR, 6793-4, 2132- 9, 2276-4, 2284-8, 2731-8, 97666-0 #### [facility] ([id number]) [address], [address] [place] [address] Monocytes/100 WBC (Bld) 7.2 % Normal [facility] Comment on above: Performed By: #### P INR, 90949-0, 4679-7, FEPR, 6793-4, 2132- 9, 2276-4, 2284-8, 2731-8, 05330-5 #### [facility] ([id number]) [address], [address] [place] [address] Neutrophils/100 WBC (Bld) 72.3 % Normal [facility] Comment on above: Performed By: #### P INR, 18241-4, 4679-7, FEPR, 6793-4, 2132- 9, 2276-4, 2284-8, 2731-8, 43155-4 #### [facility] ([id number]) [address], [address] [place] [address] Platelet mean volume (Bld) [Entitic vol] 10.8 fL Normal 7-12 [facility] Comment on above: Performed By: #### P INR, 69668-0, 4679-7, FEPR, 6793-4, 2132- 9, 2276-4, 2284-8, 2731-8, 62319-3 #### [facility] ([id number]) [address], [address] [place] [address] Platelets (Bld) [#/Vol] 172 10*3/uL Normal 150-450 [facility] Comment on above: Performed By: #### P INR, 02182-9, 4679-7, FEPR, 6793-4, 2132- 9, 2276-4, 2284-8, 2731-8, 16953-5 #### [facility] ([id number]) [address], [address] [place] [address] RBC COUNT 3.66 X10E12/L Low 4.10-5.70 [facility] Comment on above: Performed By: #### P INR, 54455-6, 4679-7, FEPR, 6793-4, 2132- 9, 2276-4, 2284-8, 2731-8, 14872-6 #### [facility] ([id number]) [address], [address] [place] [address] WBC (Bld) [#/Vol] 8.6 10*3/uL Normal 4.0-11.0 [facility] Comment on above: Performed By: #### P INR, 87552-4, 4679-7, FEPR, 6793-4, 2132- 9, 2276-4, 2284-8, 2731-8, 98904-0 #### [facility] ([id number]) [address], [address] [place] [address] CT HIP RT WO CONTon 01-27-20 CT HIP RT WO CONT CT HIP RT WO CONT CT HIP RT WO CONT Clinical history:Hip replacement, periprosthetic fracture suspected; Fall with increased pain. Recent femur fracture s/p IM nail. Comparison: 01/04. TECHNIQUE: CT right hip performed without contrast with axial coronal and sagittal imaging. 3-D volume rendered surface shaded images were generated and reviewed under concurrent physician supervision for better delineation of the femoral fracture anatomy. Findings: There is a new right proximal femoral intramedullary kateryna transfixing a proximal right femoral intertrochanteric fracture. There is a comminuted fracture of the right greater trochanter as well. There is a linear lucency of the medial distal femoral cortex on axial image #482 likely related to nutrient foramen. There is fracture of the posterior femoral cortex just proximal to the nutrient foramen which appears to be new. Impression: Intramedullary kateryna fixation of the proximal right femur transfixing the proximal right femoral intertrochanteric fracture with fracture of the right greater tuberosity. There is extension of the fracture to involve the posterior femoral cortex along the intramedullary kateryna as above which appears to be new from prior. All CT scans at this facility use dose modulation, iterative reconstruction, and/or weight based dosing when appropriate to reduce radiation dose to as low as reasonably achievable. Finalized by Marc Paredes MD on 01/27/2024 10:58 AM Normal [facility] Glucose Glucometer (BldC) [M ass/Vol]on 01-27-2024 Glucose [Mass/Vol] 170 mg/dL High 65-99 [facility] Glucose [Mass/Vol] 195 mg/dL High 65-99 [facility] Glucose [Mass/Vol] 225 mg/dL High 65-99 [facility] Glucose [Mass/Vol] 217 mg/dL High 65-99 [facility] XR HIP RT 2-3 VIEWS W OR WO PELVISon 01-27-2024 XR HIP RT 2-3 VIEWS W OR WO PELVIS XR HIP RT 2-3 VIEWS W OR WO PELVIS History: Fall with right hip pain. Fall just over one week ago with internal fixation of right intertrochanteric hip fracture 9 days ago. Exam/Technique: AP pelvis with coned-down AP and lateral right hip. Comparison: 01/21/2024 Findings: Internally fixing right hip hardware with no evidence of acute complications. Fracture fragment at the greater tuberosity remains essentially undisplaced. There is no evidence of new recent fractures or other focal bony abnormalities in the pelvic bones or proximal femurs. IMPRESSION: No new acute abnormalities demonstrated Finalized by Caio Porras MD on 01/27/2024 6:44 AM Normal [facility] Glucose Glucometer (BldC) [M ass/Vol]on 01-26-2024 Glucose [Mass/Vol] 310 mg/dL High 65-99 [facility] Glucose [Mass/Vol] 267 mg/dL High 65-99 [facility] Glucose [Mass/Vol] 190 mg/dL High 65-99 [facility] Glucose [Mass/Vol] 221 mg/dL High 65-99 [facility] Glucose [Mass/Vol] 206 mg/dL High 65-99 [facility] BASIC METABOLIC PANLon 01-24 Anion gap [Moles/Vol] 9 mmol/L Normal 5-15 [facility] Comment on above: Performed By: #### P INR, 08895-1, 4679-7, FEPR, 6793-4, 2132- 9, 2276-4, 2284-8, 2731-8, 14013-5 #### [facility] ([id number]) [address], [address] [place] [address] Calcium [Mass/Vol] 9.7 mg/dL Normal 8.5-10.5 [facility] Comment on above: Performed By: #### P INR, 58328-6, 4679-7, FEPR, 6793-4, 2132- 9, 2276-4, 2284-8, 2731-8, 61036-0 #### [facility] ([id number]) [address], [address] [place] [address] Chloride [Moles/Vol] 96 mmol/L Low 98-109 [facility] Comment on above: Performed By: #### P INR, 28570-6, 4679-7, FEPR, 6793-4, 2132- 9, 2276-4, 2284-8, 2731-8, 58552-2 #### [facility] ([id number]) [address], [address] [place] [address] CO2 [Moles/Vol] 29 mmol/L Normal 22-32 [facility] Comment on above: Performed By: #### P INR, 59961-7, 4679-7, FEPR, 6793-4, 2132- 9, 2276-4, 2284-8, 2731-8, 81459-1 #### [facility] ([id number]) [address], [address] [place] [address] Creatinine [Mass/Vol] 0.95 mg/dL Normal 0.60-1.30 [facility] Comment on above: Result Comment: METH OD TRACEABLE TO IDMS STANDARD Performed By: #### P INR, 68823-8, 4679-7, FEPR, 6793-4, 2132-9, 2276-4, 2284-8, 2731-8, 14926-0 #### [facility] ([id number]) [address], [address] [place] [address] eGFR (CKD-EPI) NON-RACE DEPENDENT >90 Normal >59 [facility] Comment on above: Result Comment: Reported eGFR is based on the CKD-EPI 2020 equation that does not use a race coefficient. Performed By: #### P INR, 63879-5, 4679-7, FEPR, 6793-4, 2132-9, 2276-4, 2284-8, 2731-8, 96888-6 #### [facility] ([id number]) [address], [address] [place] [address] Glucose [Mass/Vol] 149 mg/dL High 65-99 [facility] Comment on above: Performed By: #### P INR, 58590-9, 4679-7, FEPR, 6793-4, 2132- 9, 2276-4, 2284-8, 2731-8, 35716-3 #### [facility] ([id number]) [address], [address] [place] [address] Potassium [Moles/Vol] 3.8 mmol/L Normal 3.5-5.0 [facility] Comment on above: Performed By: #### P INR, 79090-4, 4679-7, FEPR, 6793-4, 2132- 9, 2276-4, 2284-8, 2731-8, 48871-0 #### [facility] ([id number]) [address], [address] [place] [address] Sodium [Moles/Vol] 134 mmol/L Normal 134-146 [facility] Comment on above: Performed By: #### P INR, 49554-6, 4679-7, FEPR, 6793-4, 2132- 9, 2276-4, 2284-8, 2731-8, 28017-0 #### [facility] ([id number]) [address], [address] [place] [address] Urea nitrogen [Mass/Vol] 20 mg/dL Normal 5-23 [facility] Comment on above: Performed By: #### P INR, 99329-9, 4679-7, FEPR, 6793-4, 2132- 9, 2276-4, 2284-8, 2731-8, 93060-6 #### [facility] ([id number]) [address], [address] [place] [address] COMPLETE BLOOD COUNTon 01-24 Erythrocyte distribution width (RBC) [Ratio] 16.5 % High 11.5-15.0 [facility] Comment on above: Performed By: #### P INR, 47250-7, 4679-7, FEPR, 6793-4, 2132- 9, 2276-4, 2284-8, 2731-8, 90031-7 #### [facility] ([id number]) [address], [address] [place] [address] Hematocrit (Bld) [Volume fraction] 37.9 % Low 39-49 [facility] Comment on above: Performed By: #### P INR, 51215-7, 4679-7, FEPR, 6793-4, 2132- 9, 2276-4, 2284-8, 2731-8, 54775-7 #### [facility] ([id number]) [address], [address] [place] [address] Hemoglobin (Bld) [Mass/Vol] 13.0 g/dL Normal 13.0-17.0 [facility] Comment on above: Performed By: #### P INR, 92831-9, 4679-7, FEPR, 6793-4, 2132- 9, 2276-4, 2284-8, 2731-8, 43171-4 #### [facility] ([id number]) [address], [address] [place] [address] MCH (RBC) [Entitic mass] 29.0 pg Normal 27-34 [facility] Comment on above: Performed By: #### P INR, 86912-0, 4679-7, FEPR, 6793-4, 2132- 9, 2276-4, 2284-8, 2731-8, 24940-2 #### [facility] ([id number]) [address], [address] [place] [address] MCHC (RBC) [Mass/Vol] 34.2 g/dL Normal 32-36 [facility] Comment on above: Performed By: #### P INR, 49324-2, 4679-7, FEPR, 6793-4, 2132- 9, 2276-4, 2284-8, 2731-8, 31204-6 #### [facility] ([id number]) [address], [address] [place] [address] MCV (RBC) [Entitic vol] 85 fL Normal 80-100 [facility] Comment on above: Performed By: #### P INR, 26241-4, 4679-7, FEPR, 6793-4, 2132- 9, 2276-4, 2284-8, 2731-8, 39357-2 #### [facility] ([id number]) [address], [address] [place] [address] Platelet mean volume (Bld) [Entitic vol] 10.4 fL Normal 7-12 [facility] Comment on above: Performed By: #### P INR, 29529-2, 4679-7, FEPR, 6793-4, 2132- 9, 2276-4, 2284-8, 2731-8, 47061-3 #### [facility] ([id number]) [address], [address] [place] [address] Platelets (Bld) [#/Vol] 135 10*3/uL Low 150-450 [facility] Comment on above: Performed By: #### P INR, 34143-4, 4679-7, FEPR, 6793-4, 2132- 9, 2276-4, 2284-8, 2731-8, 35343-9 #### [facility] ([id number]) [address], [address] [place] [address] RBC COUNT 4.47 X10E12/L Normal 4.10-5.70 [facility] Comment on above: Performed By: #### P INR, 73035-4, 4679-7, FEPR, 6793-4, 2132- 9, 2276-4, 2284-8, 2731-8, 28242-8 #### [facility] ([id number]) [address], [address] [place] [address] WBC (Bld) [#/Vol] 9.4 10*3/uL Normal 4.0-11.0 [facility] Comment on above: Performed By: #### P INR, 51121-8, 4679-7, FEPR, 6793-4, 2131- 9, 2276-4, 2284-8, 2731-8, 25421-7 #### [facility] ([id number]) [address], [address] [place] [address] Glucose Glucometer (BldC) [M ass/Vol]on 01-25-2024 Glucose [Mass/Vol] 155 mg/dL High 65-99 [facility] Glucose [Mass/Vol] 246 mg/dL High 65-99 [facility] Glucose [Mass/Vol] 162 mg/dL High 65-99 [facility] Glucose [Mass/Vol] 163 mg/dL High 65-99 [facility] Glucose Glucometer (BldC) [M ass/Vol]on 01-24-2024 Glucose [Mass/Vol] 113 mg/dL High 65-99 [facility] Glucose [Mass/Vol] 187 mg/dL High 65-99 [facility] Glucose [Mass/Vol] 161 mg/dL High 65-99 [facility] Glucose [Mass/Vol] 152 mg/dL High 65-99 [facility] COMPLETE BLOOD COUNTon 01-22 Erythrocyte distribution width (RBC) [Ratio] 15.9 % High 11.5-15.0 [facility] Comment on above: Performed By: #### P INR, 43772-5, 4679-7, FEPR, 6793-4, 2131- 9, 2276-4, 2284-8, 2731-8, 93223-2 #### [facility] ([id number]) [address], [address] [place] [address] Hematocrit (Bld) [Volume fraction] 36.3 % Low 39-49 [facility] Comment on above: Performed By: #### P INR, 97178-2, 4679-7, FEPR, 6793-4, 2132- 9, 2276-4, 2284-8, 2731-8, 85324-0 #### [facility] ([id number]) [address], [address] [place] [address] Hemoglobin (Bld) [Mass/Vol] 12.5 g/dL Low 13.0-17.0 [facility] Comment on above: Performed By: #### P INR, 65776-9, 4679-7, FEPR, 6793-4, 2132- 9, 2276-4, 2284-8, 2731-8, 80037-6 #### [facility] ([id number]) [address], [address] [place] [address] MCH (RBC) [Entitic mass] 28.9 pg Normal 27-34 [facility] Comment on above: Performed By: #### P INR, 00790-3, 4679-7, FEPR, 6793-4, 2132- 9, 2276-4, 2284-8, 2731-8, 26642-1 #### [facility] ([id number]) [address], [address] [place] [address] MCHC (RBC) [Mass/Vol] 34.4 g/dL Normal 32-36 [facility] Comment on above: Performed By: #### P INR, 71088-7, 4679-7, FEPR, 6793-4, 2132- 9, 2276-4, 2284-8, 2731-8, 85436-2 #### [facility] ([id number]) [address], [address] [place] [address] MCV (RBC) [Entitic vol] 84 fL Normal 80-100 [facility] Comment on above: Performed By: #### P INR, 46062-0, 4679-7, FEPR, 6793-4, 2132- 9, 2276-4, 2284-8, 2731-8, 20094-0 #### [facility] ([id number]) [address], [address] [place] [address] Platelet mean volume (Bld) [Entitic vol] 11.5 fL Normal 7-12 [facility] Comment on above: Performed By: #### P INR, 38504-2, 4679-7, FEPR, 6793-4, 2132- 9, 2276-4, 2284-8, 2731-8, 20737-6 #### [facility] ([id number]) [address], [address] [place] [address] Platelets (Bld) [#/Vol] 135 10*3/uL Low 150-450 [facility] Comment on above: Performed By: #### P INR, 95718-9, 4679-7, FEPR, 6793-4, 2132- 9, 2276-4, 2284-8, 2731-8, 16409-4 #### [facility] ([id number]) [address], [address] [place] [address] RBC COUNT 4.34 X10E12/L Normal 4.10-5.70 [facility] Comment on above: Performed By: #### P INR, 10969-0, 4679-7, FEPR, 6793-4, 2132- 9, 2276-4, 2284-8, 2731-8, 31856-5 #### [facility] ([id number]) [address], [address] [place] [address] WBC (Bld) [#/Vol] 7.8 10*3/uL Normal 4.0-11.0 [facility] Comment on above: Performed By: #### P INR, 21343-2, 4679-7, FEPR, 6793-4, 2132- 9, 2276-4, 2284-8, 2731-8, 13961-2 #### [facility] ([id number]) [address], [address] [place] [address] COMPREHENSIVE METABOLIC PANE Benito 01-23-2024 Albumin [Mass/Vol] 4.0 g/dL Normal 3.2-5.3 [facility] Comment on above: Performed By: #### P INR, 53429-4, 4679-7, FEPR, 6793-4, 2132- 9, 2276-4, 2284-8, 2731-8, 42679-8 #### [facility] ([id number]) [address], [address] [place] [address] ALP [Catalytic activity/Vol] 47 U/L Normal 39-130 [facility] Comment on above: Performed By: #### P INR, 26898-1, 4679-7, FEPR, 6793-4, 2132- 9, 2276-4, 2284-8, 2731-8, 26915-1 #### [facility] ([id number]) [address], [address] [place] [address] ALT [Catalytic activity/Vol] 9 U/L Normal 0-40 [facility] Comment on above: Performed By: #### P INR, 75408-3, 4679-7, FEPR, 6793-4, 2132- 9, 2276-4, 2284-8, 2731-8, 77217-9 #### [facility] ([id number]) [address], [address] [place] [address] Anion gap [Moles/Vol] 12 mmol/L Normal 5-15 [facility] Comment on above: Performed By: #### P INR, 72731-8, 4679-7, FEPR, 6793-4, 2132- 9, 2276-4, 2284-8, 2731-8, 26764-3 #### [facility] ([id number]) [address], [address] [place] [address] AST [Catalytic activity/Vol] 21 U/L Normal 0-41 [facility] Comment on above: Performed By: #### P INR, 94701-8, 4679-7, FEPR, 6793-4, 2132- 9, 2276-4, 2284-8, 2731-8, 61942-4 #### [facility] ([id number]) [address], [address] [place] [address] Bilirubin [Mass/Vol] 0.9 mg/dL Normal 0.3-1.2 [facility] Comment on above: Performed By: #### P INR, 07683-8, 4679-7, FEPR, 6793-4, 2132- 9, 2276-4, 2284-8, 2731-8, 05094-9 #### [facility] ([id number]) [address], [address] [place] [address] Calcium [Mass/Vol] 9.3 mg/dL Normal 8.5-10.5 [facility] Comment on above: Performed By: #### P INR, 31589-3, 4679-7, FEPR, 6793-4, 2132- 9, 2276-4, 2284-8, 2731-8, 87366-7 #### [facility] ([id number]) [address], [address] [place] [address] Chloride [Moles/Vol] 99 mmol/L Normal 98-109 [facility] Comment on above: Performed By: #### P INR, 65655-3, 4679-7, FEPR, 6793-4, 2132- 9, 2276-4, 2284-8, 2731-8, 08304-5 #### [facility] ([id number]) [address], [address] [place] [address] CO2 [Moles/Vol] 22 mmol/L Normal 22-32 [facility] Comment on above: Performed By: #### P INR, 04642-9, 4679-7, FEPR, 6793-4, 2132- 9, 2276-4, 2284-8, 2731-8, 69814-3 #### [facility] ([id number]) [address], [address] [place] [address] Creatinine [Mass/Vol] 0.66 mg/dL Normal 0.60-1.30 [facility] Comment on above: Result Comment: METH OD TRACEABLE TO IDMS STANDARD Performed By: #### P INR, 69040-7, 4679-7, FEPR, 6793-4, 2132-9, 2276-4, 2284-8, 2731-8, 28806-9 #### [facility] ([id number]) [address], [address] [place] [address] eGFR (CKD-EPI) NON-RACE DEPENDENT >90 Normal >59 [facility] Comment on above: Result Comment: Reported eGFR is based on the CKD-EPI 2020 equation that does not use a race coefficient. Performed By: #### P INR, 90140-4, 4679-7, FEPR, 6793-4, 2132-9, 2276-4, 2284-8, 2731-8, 57705-4 #### [facility] ([id number]) [address], [address] [place] [address] Glucose [Mass/Vol] 164 mg/dL High 65-99 [facility] Comment on above: Performed By: #### P INR, 07485-8, 4679-7, FEPR, 6793-4, 2132- 9, 2276-4, 2284-8, 2731-8, 97586-7 #### [facility] ([id number]) [address], [address] [place] [address] Potassium [Moles/Vol] 4.0 mmol/L Normal 3.5-5.0 [facility] Comment on above: Performed By: #### P INR, 77611-5, 4679-7, FEPR, 6793-4, 2132- 9, 2276-4, 2284-8, 2731-8, 12487-0 #### [facility] ([id number]) [address], [address] [place] [address] Protein [Mass/Vol] 7.1 g/dL Normal 6.0-8.0 [facility] Comment on above: Performed By: #### P INR, 52384-8, 4679-7, FEPR, 6793-4, 2132- 9, 2276-4, 2284-8, 2731-8, 67583-9 #### [facility] ([id number]) [address], [address] [place] [address] Sodium [Moles/Vol] 133 mmol/L Low 134-146 [facility] Comment on above: Performed By: #### P INR, 35051-6, 4679-7, FEPR, 6793-4, 2132- 9, 2276-4, 2284-8, 2731-8, 39634-0 #### [facility] ([id number]) [address], [address] [place] [address] Urea nitrogen [Mass/Vol] 11 mg/dL Normal 5-23 [facility] Comment on above: Performed By: #### P INR, 15084-6, 4679-7, FEPR, 6793-4, 2132- 9, 2276-4, 2284-8, 2731-8, 87002-7 #### [facility] ([id number]) [address], [address] [place] [address] Glucose Glucometer (BldC) [M ass/Vol]on 06-11-2024 Glucose [Mass/Vol] 171 mg/dL High 65-99 [facility] Glucose [Mass/Vol] 143 mg/dL High 65-99 [facility] Glucose [Mass/Vol] 175 mg/dL High 65-99 [facility] Glucose [Mass/Vol] 169 mg/dL High 65-99 [facility] Glucose [Mass/Vol] 157 mg/dL High 65-99 [facility] BASIC METABOLIC PANLon 01-21 Anion gap [Moles/Vol] 11 mmol/L Normal 5-15 [facility] Comment on above: Performed By: #### P INR, 26263-2, 4679-7, FEPR, 6793-4, 2132- 9, 2276-4, 2284-8, 2731-8, 66073-6 #### [facility] ([id number]) [address], [address] [place] [address] Calcium [Mass/Vol] 9.3 mg/dL Normal 8.5-10.5 [facility] Comment on above: Performed By: #### P INR, 71203-5, 4679-7, FEPR, 6793-4, 2132- 9, 2276-4, 2284-8, 2731-8, 76580-1 #### [facility] ([id number]) [address], [address] [place] [address] Chloride [Moles/Vol] 101 mmol/L Normal 98-109 [facility] Comment on above: Performed By: #### P INR, 67072-9, 4679-7, FEPR, 6793-4, 2132- 9, 2276-4, 2284-8, 2731-8, 95160-0 #### [facility] ([id number]) [address], [address] [place] [address] CO2 [Moles/Vol] 26 mmol/L Normal 22-32 [facility] Comment on above: Performed By: #### P INR, 04800-7, 4679-7, FEPR, 6793-4, 2132- 9, 2276-4, 2284-8, 2731-8, 12649-8 #### [facility] ([id number]) [address], [address] [place] [address] Creatinine [Mass/Vol] 0.62 mg/dL Normal 0.60-1.30 [facility] Comment on above: Result Comment: METH OD TRACEABLE TO IDMS STANDARD Performed By: #### P INR, 73741-2, 4679-7, FEPR, 6793-4, 2132-9, 2276-4, 2284-8, 2731-8, 55282-2 #### [facility] ([id number]) [address], [address] [place] [address] eGFR (CKD-EPI) NON-RACE DEPENDENT >90 Normal >59 [facility] Comment on above: Result Comment: Reported eGFR is based on the CKD-EPI 2020 equation that does not use a race coefficient. Performed By: #### P INR, 20557-7, 4679-7, FEPR, 6793-4, 2132-9, 2276-4, 2284-8, 2731-8, 67489-7 #### [facility] ([id number]) [address], [address] [place] [address] Glucose [Mass/Vol] 150 mg/dL High 65-99 [facility] Comment on above: Performed By: #### P INR, 38165-3, 4679-7, FEPR, 6793-4, 2132- 9, 2276-4, 2284-8, 2731-8, 46746-7 #### [facility] ([id number]) [address], [address] [place] [address] Potassium [Moles/Vol] 4.0 mmol/L Normal 3.5-5.0 [facility] Comment on above: Performed By: #### P INR, 87191-4, 4679-7, FEPR, 6793-4, 2132- 9, 2276-4, 2284-8, 2731-8, 85763-4 #### [facility] ([id number]) [address], [address] [place] [address] Sodium [Moles/Vol] 138 mmol/L Normal 134-146 [facility] Comment on above: Performed By: #### P INR, 29865-8, 4679-7, FEPR, 6793-4, 2132- 9, 2276-4, 2284-8, 2731-8, 10008-9 #### [facility] ([id number]) [address], [address] [place] [address] Urea nitrogen [Mass/Vol] 12 mg/dL Normal 5-23 [facility] Comment on above: Performed By: #### P INR, 02704-4, 4679-7, FEPR, 6793-4, 2132- 9, 2276-4, 2284-8, 2731-8, 51814-7 #### [facility] ([id number]) [address], [address] [place] [address] Basic Metabolic Panelon 06--2023 Anion gap [Moles/Vol] 11 mmol/L 5 - 15 mmol/L [facility] Calcium [Mass/Vol] 9.3 mg/dL 8.5 - 10. 5 mg/dL [facility] Chloride [Moles/Vol] 101 mmol/L 98 - 10 9 mmol/L [facility] CO2 [Moles/Vol] 26 mmol/L 22 - 32 mmol/L [facility] Creatinine [Mass/Vol] 0.62 mg/dL 0.60 - 1.30 mg/dL [facility] Comment on above: METHOD TRACEABLE TO IDMS STANDARD eGFR (CKD-EPI)non-race dependent - PINF [facility] Comment on above: Reported eGFR is based on the CKD-EPI 2020 equation that does not use a race coefficient. Glucose [Mass/Vol] 150 mg/dL High 65 - 99 mg/dL [facility] Interpretation and review of laboratory results Abnormal [facility] Potassium [Moles/Vol] 4.0 mmol/L 3.5 - 5.0 mmol/L [facility] Sodium [Moles/Vol] 138 mmol/L 134 - 146 mmol/L [facility] Urea nitrogen [Mass/Vol] 12 mg/dL 5 - 23 mg/dL [facility] CBC AND AUTO DIFFon 01-22-20 24 ABSOLUTE BASOPHIL 0.0 X10E9/L Normal 0.0-0.2 [facility] Comment on above: Performed By: #### P INR, 28689-5, 4679-7, FEPR, 6793-4, 2132- 9, 2276-4, 2284-8, 2731-8, 86337-8 #### [facility] ([id number]) [address], [address] [place] [address] ABSOLUTE NEUTROPHIL 4.1 X10E9/L Normal 1.5-6.6 [facility] Comment on above: Performed By: #### P INR, 06355-2, 4679-7, FEPR, 6793-4, 2132- 9, 2276-4, 2284-8, 2731-8, 79437-7 #### [facility] ([id number]) [address], [address] [place] [address] Basophils/100 WBC (Bld) 0.7 % Normal [facility] Comment on above: Performed By: #### P INR, 58574-4, 4679-7, FEPR, 6793-4, 2132- 9, 2276-4, 2284-8, 2731-8, 68126-8 #### [facility] ([id number]) [address], [address] [place] [address] Eosinophils (Bld) [#/Vol] 0.0 10*3/uL Normal 0.0-0.4 [facility] Comment on above: Performed By: #### P INR, 73686-5, 4679-7, FEPR, 6793-4, 2132- 9, 2276-4, 2284-8, 2731-8, 38029-6 #### [facility] ([id number]) [address], [address] [place] [address] Eosinophils/100 WBC (Bld) 0.7 % Normal [facility] Comment on above: Performed By: #### P INR, 13613-1, 4679-7, FEPR, 6793-4, 2132- 9, 2276-4, 2284-8, 2731-8, 64805-8 #### [facility] ([id number]) [address], [address] [place] [address] Erythrocyte distribution width (RBC) [Ratio] 16.3 % High 11.5-15.0 [facility] Comment on above: Performed By: #### P INR, 40748-2, 4679-7, FEPR, 6793-4, 2132- 9, 2276-4, 2284-8, 2731-8, 35992-9 #### [facility] ([id number]) [address], [address] [place] [address] Hematocrit (Bld) [Volume fraction] 33.7 % Low 39-49 [facility] Comment on above: Performed By: #### P INR, 12420-4, 4679-7, FEPR, 6793-4, 2132- 9, 2276-4, 2284-8, 2731-8, 92241-8 #### [facility] ([id number]) [address], [address] [place] [address] Hemoglobin (Bld) [Mass/Vol] 11.8 g/dL Low 13.0-17.0 [facility] Comment on above: Performed By: #### P INR, 68318-6, 4679-7, FEPR, 6793-4, 2132- 9, 2276-4, 2284-8, 2731-8, 34723-9 #### [facility] ([id number]) [address], [address] [place] [address] Lymphocytes (Bld) [#/Vol] 1.4 10*3/uL Normal 1.0-3.5 [facility] Comment on above: Performed By: #### P INR, 91398-6, 4679-7, FEPR, 6793-4, 2132- 9, 2276-4, 2284-8, 2731-8, 18971-9 #### [facility] ([id number]) [address], [address] [place] [address] Lymphocytes/100 WBC (Bld) 23.1 % Normal [facility] Comment on above: Performed By: #### P INR, 06998-7, 4679-7, FEPR, 6793-4, 2132- 9, 2276-4, 2284-8, 2731-8, 35351-2 #### [facility] ([id number]) [address], [address] [place] [address] MCH (RBC) [Entitic mass] 29.5 pg Normal 27-34 [facility] Comment on above: Performed By: #### P INR, 84285-3, 4679-7, FEPR, 6793-4, 2132- 9, 2276-4, 2284-8, 2731-8, 66122-3 #### [facility] ([id number]) [address], [address] [place] [address] MCHC (RBC) [Mass/Vol] 34.9 g/dL Normal 32-36 [facility] Comment on above: Performed By: #### P INR, 21467-0, 4679-7, FEPR, 6793-4, 2132- 9, 2276-4, 2284-8, 2731-8, 63860-6 #### [facility] ([id number]) [address], [address] [place] [address] MCV (RBC) [Entitic vol] 85 fL Normal 80-100 [facility] Comment on above: Performed By: #### P INR, 13146-1, 4679-7, FEPR, 6793-4, 2132- 9, 2276-4, 2284-8, 2731-8, 06024-7 #### [facility] ([id number]) [address], [address] [place] [address] Monocytes (Bld) [#/Vol] 0.6 10*3/uL Normal 0-0.9 [facility] Comment on above: Performed By: #### P INR, 48933-0, 4679-7, FEPR, 6793-4, 2132- 9, 2276-4, 2284-8, 2731-8, 65760-3 #### [facility] ([id number]) [address], [address] [place] [address] Monocytes/100 WBC (Bld) 10.1 % Normal [facility] Comment on above: Performed By: #### P INR, 01238-2, 4679-7, FEPR, 6793-4, 2132- 9, 2276-4, 2284-8, 2731-8, 92572-9 #### [facility] ([id number]) [address], [address] [place] [address] Neutrophils/100 WBC (Bld) 65.4 % Normal [facility] Comment on above: Performed By: #### P INR, 02741-1, 4679-7, FEPR, 6793-4, 2132- 9, 2276-4, 2284-8, 2731-8, 53899-3 #### [facility] ([id number]) [address], [address] [place] [address] Platelet mean volume (Bld) [Entitic vol] 10.7 fL Normal 7-12 [facility] Comment on above: Performed By: #### P INR, 95958-5, 4679-7, FEPR, 6793-4, 2132- 9, 2276-4, 2284-8, 2731-8, 36194-3 #### [facility] ([id number]) [address], [address] [place] [address] Platelets (Bld) [#/Vol] 113 10*3/uL Low 150-450 [facility] Comment on above: Performed By: #### P INR, 21855-2, 4679-7, FEPR, 6793-4, 2132- 9, 2276-4, 2284-8, 2731-8, 52196-4 #### [facility] ([id number]) [address], [address] [place] [address] RBC COUNT 3.99 X10E12/L Low 4.10-5.70 [facility] Comment on above: Performed By: #### P INR, 66476-1, 4679-7, FEPR, 6793-4, 2- 9, 2276-4, 2284-8, 2731-8, 12654-8 #### [facility] ([id number]) [address], [address] [place] [address] WBC (Bld) [#/Vol] 6.2 10*3/uL Normal 4.0-11.0 [facility] Comment on above: Performed By: #### P INR, 27224-7, 4679-7, FEPR, 6793-4, 2- 9, 2276-4, 2284-8, 2731-8, 68979-7 #### [facility] ([id number]) [address], [address] [place] [address] CBC auto differentialon 01-12-2023 Basophils (Bld) [#/Vol] 0.0 10*3/uL [facility] Basophils/100 WBC (Bld) 0.7 % [facility] Eosinophils (Bld) [#/Vol] 0.0 10*3/uL [facility] Eosinophils/100 WBC (Bld) 0.7 % [facility] Erythrocyte distribution width (RBC) [Ratio] 16.3 % High 11.5 - 15.0 % [facility] Hematocrit (Bld) [Volume fraction] 33.7 % Low 39 - 49 % [facility] Hemoglobin (Bld) [Mass/Vol] 11.8 g/dL Low 13.0 - 17.0 g/dL [facility] Interpretation and review of laboratory results Abnormal [facility] Lymphocytes (Bld) [#/Vol] 1.4 10*3/uL [facility] Lymphocytes/100 WBC (Bld) 23.1 % [facility] MCH (RBC) [Entitic mass] 29.5 pg 27 - 34 pg [facility] MCHC (RBC) [Mass/Vol] 34.9 g/dL 32 - 3 6 g/dL [facility] MCV (RBC) [Entitic vol] 85 fL 80 - 100 fL [facility] Monocytes (Bld) [#/Vol] 0.6 10*3/uL [facility] Monocytes/100 WBC (Bld) 10.1 % [facility] Neutrophils (Bld) [#/Vol] 4.1 10*3/uL [facility] Neutrophils/100 WBC (Bld) 65.4 % [facility] Platelet mean volume (Bld) [Entitic vol] 10.7 fL 7 - 12 fL [facility] Platelets (Bld) [#/Vol] 113 10*3/uL Low [facility] RBC (Bld) [#/Vol] 3.99 10*6/uL Low [facility] WBC corrected for nucl RBC Auto (Bld) [#/Vol] 6.2 [facility] Glucose Glucometer (BldC) [M ass/Vol]on 01-22-2024 Glucose [Mass/Vol] 139 mg/dL High 65-99 [facility] Glucose [Mass/Vol] 139 mg/dL High 65 - 99 mg/dL [facility] Interpretation and review of laboratory results Abnormal [facility] Glucose [Mass/Vol] 139 mg/dL High 65-99 [facility] Glucose [Mass/Vol] 138 mg/dL High 65 - 99 mg/dL [facility] Interpretation and review of laboratory results Abnormal [facility] Glucose [Mass/Vol] 138 mg/dL High 65-99 [facility] Glucose [Mass/Vol] 135 mg/dL High 65 - 99 mg/dL [facility] Interpretation and review of laboratory results Abnormal [facility] Glucose [Mass/Vol] 135 mg/dL High 65-99 [facility] MAGNESIUMon 01-22-2024 Magnesium [Mass/Vol] 1.4 mg/dL Low 1.8-2.6 [facility] Comment on above: Performed By: #### P INR, 30518-2, 4679-7, FEPR, 6793-4, 2132- 9, 2276-4, 2284-8, 2731-8, 98855-4 #### [facility] ([id number]) [address], [address] [place] [address] Magnesiumon 01-22-2024 Magnesium [Mass/Vol] 1.4 mg/dL Low 1.8 - 2 .6 mg/dL [facility] Magnesium [Mass/Vol]on 01-21 Interpretation and review of laboratory results Abnormal [facility] BASIC METABOLIC PANLon 01-20 Anion gap [Moles/Vol] 12 mmol/L Normal 5-15 [facility] Comment on above: Performed By: #### P INR, 89062-4, 4679-7, FEPR, 6793-4, 2132- 9, 2276-4, 2284-8, 2731-8, 50260-7 #### [facility] ([id number]) [address], [address] [place] [address] Calcium [Mass/Vol] 9.4 mg/dL Normal 8.5-10.5 [facility] Comment on above: Performed By: #### P INR, 27339-0, 4679-7, FEPR, 6793-4, 2132- 9, 2276-4, 2284-8, 2731-8, 65652-7 #### [facility] ([id number]) [address], [address] [place] [address] Chloride [Moles/Vol] 99 mmol/L Normal 98-109 [facility] Comment on above: Performed By: #### P INR, 94659-0, 4679-7, FEPR, 6793-4, 2132- 9, 2276-4, 2284-8, 2731-8, 54445-3 #### [facility] ([id number]) [address], [address] [place] [address] CO2 [Moles/Vol] 26 mmol/L Normal 22-32 [facility] Comment on above: Performed By: #### P INR, 14647-9, 4679-7, FEPR, 6793-4, 2132- 9, 2276-4, 2284-8, 2731-8, 62142-4 #### [facility] ([id number]) [address], [address] [place] [address] Creatinine [Mass/Vol] 0.71 mg/dL Normal 0.60-1.30 [facility] Comment on above: Result Comment: METH OD TRACEABLE TO IDMS STANDARD Performed By: #### P INR, 65470-2, 4679-7, FEPR, 6793-4, 2132-9, 2276-4, 2284-8, 2731-8, 82789-5 #### [facility] ([id number]) [address], [address] [place] [address] eGFR (CKD-EPI) NON-RACE DEPENDENT >90 Normal >59 [facility] Comment on above: Result Comment: Reported eGFR is based on the CKD-EPI 2020 equation that does not use a race coefficient. Performed By: #### P INR, 57551-4, 4679-7, FEPR, 6793-4, 2132-9, 2276-4, 2284-8, 2731-8, 11688-7 #### [facility] ([id number]) [address] [place] [address] Glucose [Mass/Vol] 153 mg/dL High 65-99 [facility] Comment on above: Performed By: #### P INR, 94308-1, 4679-7, FEPR, 6793-4, 2132- 9, 2276-4, 2284-8, 2731-8, 97714-6 #### [facility] ([id number]) [address] [place] [address] Potassium [Moles/Vol] 4.7 mmol/L Normal 3.5-5.0 [facility] Comment on above: Result Comment: SPEC IMEN HEMOLYZED, RESULTS INCREASED MARKEDLY HEMOLYZED Performed By: #### P INR, 15570-7, 4679-7, FEPR, 6793-4, 2132-9, 2276-4, 2284-8, 2731-8, 31400-6 #### [facility] ([id number]) [address], [address] [place] [address] Sodium [Moles/Vol] 137 mmol/L Normal 134-146 [facility] Comment on above: Result Comment: RESU LTS QUESTIONABLE DUE TO HEMOLYSIS MARKEDLY HEMOLYZED Performed By: #### P INR, 81749-6, 4679-7, FEPR, 6793-4, 2132-9, 2276-4, 2284-8, 2731-8, 35958-1 #### [facility] ([id number]) [address], [address] [place] [address] Urea nitrogen [Mass/Vol] 13 mg/dL Normal 5-23 [facility] Comment on above: Performed By: #### P INR, 16013-3, 4679-7, FEPR, 6793-4, 2132- 9, 2276-4, 2284-8, 2731-8, 17926-7 #### [facility] ([id number]) [address] [place] [address] Basic Metabolic Panelon 06-0 Anion gap [Moles/Vol] 12 mmol/L 5 - 15 mmol/L [facility] Calcium [Mass/Vol] 9.4 mg/dL 8.5 - 10. 5 mg/dL [facility] Chloride [Moles/Vol] 99 mmol/L 98 - 10 9 mmol/L [facility] CO2 [Moles/Vol] 26 mmol/L 22 - 32 mmol/L [facility] Creatinine [Mass/Vol] 0.71 mg/dL 0.60 - 1.30 mg/dL [facility] Comment on above: METHOD TRACEABLE TO IDKS STANDARD eGFR (CKD-EPI)non-race dependent - PINF [facility] Comment on above: Reported eGFR is based on the CKD-EPI 2020 equation that does not use a race coefficient. Glucose [Mass/Vol] 153 mg/dL High 65 - 99 mg/dL [facility] Interpretation and review of laboratory results Abnormal [facility] Potassium [Moles/Vol] 4.7 mmol/L 3.5 - 5.0 mmol/L [facility] Comment on above: SPECIMEN HEMOLYZED, RESULTS INCREASED MARKEDLY HEMOLYZED Sodium [Moles/Vol] 137 mmol/L 134 - 146 mmol/L [facility] Comment on above: RESULTS QUESTIONABLE DUE TO HEMOLYSIS MARKEDLY HEMOLYZED Urea nitrogen [Mass/Vol] 13 mg/dL 5 - 23 mg/dL [facility] CBC AND AUTO DIFFon 01-21-20 24 ABSOLUTE BASOPHIL 0.0 X10E9/L Normal 0.0-0.2 [facility] Comment on above: Performed By: #### P INR, 95979-7, 4679-7, FEPR, 6793-4, 2132- 9, 2276-4, 2284-8, 2731-8, 69755-9 #### [facility] ([id number]) [address], [address] [place] [address] ABSOLUTE NEUTROPHIL 4.9 X10E9/L Normal 1.5-6.6 [facility] Comment on above: Performed By: #### P INR, 34774-2, 4679-7, FEPR, 6793-4, 2132- 9, 2276-4, 2284-8, 2731-8, 41957-9 #### [facility] ([id number]) [address], [address] [place] [address] Basophils/100 WBC (Bld) 0.7 % Normal [facility] Comment on above: Performed By: #### P INR, 36373-0, 4679-7, FEPR, 6793-4, 2132- 9, 2276-4, 2284-8, 2731-8, 03543-5 #### [facility] ([id number]) [address], [address] [place] [address] Eosinophils (Bld) [#/Vol] 0.1 10*3/uL Normal 0.0-0.4 [facility] Comment on above: Performed By: #### P INR, 33333-3, 4679-7, FEPR, 6793-4, 2132- 9, 2276-4, 2284-8, 2731-8, 17695-1 #### [facility] ([id number]) [address] [address], [address] [place] [address] Eosinophils/100 WBC (Bld) 1.1 % Normal [facility] Comment on above: Performed By: #### P INR, 96382-2, 4679-7, FEPR, 6793-4, 2132- 9, 2276-4, 2284-8, 2731-8, 94009-1 #### [facility] ([id number]) [address], [address] [place] [address] Erythrocyte distribution width (RBC) [Ratio] 16.6 % High 11.5-15.0 [facility] Comment on above: Performed By: #### P INR, 47403-7, 4679-7, FEPR, 6793-4, 2132- 9, 2276-4, 2284-8, 2731-8, 73054-5 #### [facility] ([id number]) [address], [address] [place] [address] Hematocrit (Bld) [Volume fraction] 34.9 % Low 39-49 [facility] Comment on above: Performed By: #### P INR, 32370-1, 4679-7, FEPR, 6793-4, 2132- 9, 2276-4, 2284-8, 2731-8, 25711-1 #### [facility] ([id number]) [address], [address] [place] [address] Hemoglobin (Bld) [Mass/Vol] 11.8 g/dL Low 13.0-17.0 [facility] Comment on above: Performed By: #### P INR, 04406-5, 4679-7, FEPR, 6793-4, 2132- 9, 2276-4, 2284-8, 2731-8, 84227-2 #### [facility] ([id number]) [address], [address] [place] [address] Lymphocytes (Bld) [#/Vol] 1.3 10*3/uL Normal 1.0-3.5 [facility] Comment on above: Performed By: #### P INR, 15325-7, 4679-7, FEPR, 6793-4, 2132- 9, 2276-4, 2284-8, 2731-8, 84590-8 #### [facility] ([id number]) [address], [address] [place] [address] Lymphocytes/100 WBC (Bld) 18.8 % Normal [facility] Comment on above: Performed By: #### P INR, 26532-0, 4679-7, FEPR, 6793-4, 2132- 9, 2276-4, 2284-8, 2731-8, 97443-2 #### [facility] ([id number]) [address] [place] [address] MCH (RBC) [Entitic mass] 29.0 pg Normal 27-34 [facility] Comment on above: Performed By: #### P INR, 01655-0, 4679-7, FEPR, 6793-4, 2132- 9, 2276-4, 2284-8, 2731-8, 93065-7 #### [facility] ([id number]) [address], [address] [place] [address] MCHC (RBC) [Mass/Vol] 33.8 g/dL Normal 32-36 [facility] Comment on above: Performed By: #### P INR, 62375-0, 4679-7, FEPR, 6793-4, 2132- 9, 2276-4, 2284-8, 2731-8, 53415-2 #### [facility] ([id number]) [address], [address] [place] [address] MCV (RBC) [Entitic vol] 86 fL Normal 80-100 [facility] Comment on above: Performed By: #### P INR, 37460-7, 4679-7, FEPR, 6793-4, 2132- 9, 2276-4, 2284-8, 2731-8, 34924-2 #### [facility] ([id number]) [address], [facility] [address] [place] [address] Monocytes (Bld) [#/Vol] 0.6 10*3/uL Normal 0-0.9 [facility] Comment on above: Performed By: #### P INR, 87070-7, 4679-7, FEPR, 6793-4, 2132- 9, 2276-4, 2284-8, 2731-8, 54395-2 #### [facility] ([id number]) [address], [address] [place] [address] Monocytes/100 WBC (Bld) 8.4 % Normal [facility] Comment on above: Performed By: #### P INR, 32312-9, 4679-7, FEPR, 6793-4, 2132- 9, 2276-4, 2284-8, 2731-8, 96214-5 #### [facility] ([id number]) [address], [address] [place] [address] Neutrophils/100 WBC (Bld) 71.0 % Normal [facility] Comment on above: Performed By: #### P INR, 23283-7, 4679-7, FEPR, 6793-4, 2132- 9, 2276-4, 2284-8, 2731-8, 38712-2 #### [facility] ([id number]) [address], [address] [place] [address] Platelet mean volume (Bld) [Entitic vol] 11.4 fL Normal 7-12 [facility] Comment on above: Performed By: #### P INR, 19221-3, 4679-7, FEPR, 6793-4, 2132- 9, 2276-4, 2284-8, 2731-8, 33201-0 #### [facility] ([id number]) [address], [address] [place] [address] Platelets (Bld) [#/Vol] 129 10*3/uL Low 150-450 [facility] Comment on above: Performed By: #### P INR, 52733-2, 4679-7, FEPR, 6793-4, 2132- 9, 2276-4, 2284-8, 2731-8, 18442-1 #### [facility] ([id number]) [address], [address] [place] [address] RBC COUNT 4.07 X10E12/L Low 4.10-5.70 [facility] Comment on above: Performed By: #### P INR, 13637-9, 4679-7, FEPR, 6793-4, 2132- 9, 2276-4, 2284-8, 2731-8, 58273-9 #### [facility] ([id number]) [address], [address] [place] [address] WBC (Bld) [#/Vol] 6.9 10*3/uL Normal 4.0-11.0 [facility] Comment on above: Performed By: #### P INR, 50871-7, 4679-7, FEPR, 6793-4, 2132- 9, 2276-4, 2284-8, 2731-8, 06654-9 #### [facility] ([id number]) [address] [address], [address] [place] [address] CBC auto differentialon 0 Basophils (Bld) [#/Vol] 0.0 10*3/uL [facility] Basophils/100 WBC (Bld) 0.7 % [facility] Eosinophils (Bld) [#/Vol] 0.1 10*3/uL [facility] Eosinophils/100 WBC (Bld) 1.1 % [facility] Erythrocyte distribution width (RBC) [Ratio] 16.6 % High 11.5 - 15.0 % [facility] Hematocrit (Bld) [Volume fraction] 34.9 % Low 39 - 49 % [facility] Hemoglobin (Bld) [Mass/Vol] 11.8 g/dL Low 13.0 - 17.0 g/dL [facility] Interpretation and review of laboratory results Abnormal [facility] Lymphocytes (Bld) [#/Vol] 1.3 10*3/uL [facility] Lymphocytes/100 WBC (Bld) 18.8 % [facility] MCH (RBC) [Entitic mass] 29.0 pg 27 - 34 pg [facility] MCHC (RBC) [Mass/Vol] 33.8 g/dL 32 - 3 6 g/dL [facility] MCV (RBC) [Entitic vol] 86 fL 80 - 100 fL [facility] Monocytes (Bld) [#/Vol] 0.6 10*3/uL [facility] Monocytes/100 WBC (Bld) 8.4 % [facility] Neutrophils (Bld) [#/Vol] 4.9 10*3/uL [facility] Neutrophils/100 WBC (Bld) 71.0 % [facility] Platelet mean volume (Bld) [Entitic vol] 11.4 fL 7 - 12 fL [facility] Platelets (Bld) [#/Vol] 129 10*3/uL Low [facility] RBC (Bld) [#/Vol] 4.07 10*6/uL Low [facility] WBC corrected for nucl RBC Auto (Bld) [#/Vol] 6.9 [facility] Glucose Glucometer (dC) [M ass/Vol]on 01-21-2024 Glucose [Mass/Vol] 223 mg/dL High 65 - 99 mg/dL [facility] Interpretation and review of laboratory results Abnormal [facility] Glucose [Mass/Vol] 223 mg/dL High 65-99 [facility] Glucose [Mass/Vol] 169 mg/dL High 65 - 99 mg/dL [facility] Interpretation and review of laboratory results Abnormal [facility] Glucose [Mass/Vol] 169 mg/dL High 65-99 [facility] Glucose [Mass/Vol] 151 mg/dL High 65 - 99 mg/dL [facility] Interpretation and review of laboratory results Abnormal [facility] Glucose [Mass/Vol] 151 mg/dL High 65-99 [facility] Glucose [Mass/Vol] 147 mg/dL High 65 - 99 mg/dL [facility] Interpretation and review of laboratory results Abnormal [facility] Glucose [Mass/Vol] 147 mg/dL High 65-99 [facility] MAGNESIUMon 01-21-2024 Magnesium [Mass/Vol] 1.7 mg/dL Low 1.8-2.6 [facility] Comment on above: Result Comment: SPEC IMEN HEMOLYZED, RESULTS INCREASED MARKEDLY HEMOLYZED Performed By: #### P INR, 14515-0, 4679-7, FEPR, 6793-4, 2132-9, 2276-4, 2284-8, 2731-8, 78156-6 #### [facility] ([id number]) [address], [address] [place] [address] Magnesiumon 01-21-2024 Magnesium [Mass/Vol] 1.7 mg/dL Low 1.8 - 2 .6 mg/dL [facility] Comment on above: SPECIMEN HEMOLYZED, RESULTS INCREASED MARKEDLY HEMOLYZED Magnesium [Mass/Vol]on 01-20 Interpretation and review of laboratory results Abnormal [facility] XR HIP RT 2-3 VIEWS W OR WO PELVISon 01-21-2024 XR HIP RT 2-3 VIEWS W OR WO PELVIS XR HIP RT 2-3 VIEWS W OR WO PELVIS XR HIP RT 2-3 VIEWS W OR WO PELVIS Clinical history:increasing pain - recent IMN right hip right hip pain Comparison: 01/18/2024 Impression: Stable postoperative changes and alignment with right proximal femoral intramedullary kateryna. No new or acute process. Finalized by Marc Paredes MD on 01/21/2024 3:06 PM Normal [facility] XR Pelvis and Hip - right 2 Viewson 01-21-2024 XR HIP RT 2-3 VIEWS W OR WO PELVIS Clinical history:increasing pain - recent IMN right hip right hip pain Comparison: 01/18/2024 Impression: Stable postoperative changes and alignment with right proximal femoral intramedullary kateryna. No new or acute process. Finalized by Marc Paredes MD on 01/21/2024 3:06 PM [facility] Wh[facility] MD - 01/21/2024 XR HIP RT 2-3 VIEWS W OR WO PELVIS Clinical history:increasing pain - recent IMN right hip right hip pain Comparison: 01/18/2024 Impression: Stable postoperative changes and alignment with right proximal femoral intramedullary kateryna. No new or acute process. Finalized by Marc Paredes MD on 01/21/2024 3:06 PM [facility] Radiology Study observation (narrative) [facility] Pelvis and Hip - right 2 ViewsOrdered By: Marc Paredes on 01-21-2024 [facility] Work Phone: BASIC METABOLIC PANLon 01-19 Anion gap [Moles/Vol] 10 mmol/L Normal 5-15 [facility] Comment on above: Performed By: #### P INR, 84785-1, 4679-7, FEPR, 6793-4, 2132- 9, 2276-4, 2284-8, 2731-8, 68283-3 #### [facility] ([id number]) [address] [place] [address] Calcium [Mass/Vol] 8.8 mg/dL Normal 8.5-10.5 [facility] Comment on above: Performed By: #### P INR, 15958-4, 4679-7, FEPR, 6793-4, 2132- 9, 2276-4, 2284-8, 2731-8, 89433-7 #### [facility] ([id number]) [address] [place] [address] Chloride [Moles/Vol] 102 mmol/L Normal 98-109 [facility] Comment on above: Performed By: #### P INR, 46309-1, 4679-7, FEPR, 6793-4, 2132- 9, 2276-4, 2284-8, 2731-8, 00726-4 #### [facility] ([id number]) [address] [place] [address] CO2 [Moles/Vol] 24 mmol/L Normal 22-32 [facility] Comment on above: Performed By: #### P INR, 69860-1, 4679-7, FEPR, 6793-4, 2132- 9, 2276-4, 2284-8, 2731-8, 00490-3 #### [facility] ([id number]) [address] [place] [address] Creatinine [Mass/Vol] 0.64 mg/dL Normal 0.60-1.30 [facility] Comment on above: Result Comment: METH OD TRACEABLE TO IDMS STANDARD Performed By: #### P INR, 36167-7, 4679-7, FEPR, 6793-4, 2132-9, 2276-4, 2284-8, 2731-8, 98991-3 #### [facility] ([id number]) [address], [address] [place] [address] eGFR (CKD-EPI) NON-RACE DEPENDENT >90 Normal >59 [facility] Comment on above: Result Comment: Reported eGFR is based on the CKD-EPI 2020 equation that does not use a race coefficient. Performed By: #### P INR, 17495-6, 4679-7, FEPR, 6793-4, 2132-9, 2276-4, 2284-8, 2731-8, 17869-6 #### [facility] ([id number]) [address], [address] [place] [address] Glucose [Mass/Vol] 119 mg/dL High 65-99 [facility] Comment on above: Performed By: #### P INR, 22106-7, 4679-7, FEPR, 6793-4, 2132- 9, 2276-4, 2284-8, 2731-8, 47219-7 #### [facility] ([id number]) [address], [address] [place] [address] Potassium [Moles/Vol] 4.3 mmol/L Normal 3.5-5.0 [facility] Comment on above: Performed By: #### P INR, 51403-4, 4679-7, FEPR, 6793-4, 2132- 9, 2276-4, 2284-8, 2731-8, 95450-5 #### [facility] ([id number]) [address], [address] [place] [address] Sodium [Moles/Vol] 136 mmol/L Normal 134-146 [facility] Comment on above: Performed By: #### P INR, 01803-3, 4679-7, FEPR, 6793-4, 2132- 9, 2276-4, 2284-8, 2731-8, 21082-4 #### [facility] ([id number]) [address], [address] [place] [address] Urea nitrogen [Mass/Vol] 14 mg/dL Normal 5-23 [facility] Comment on above: Performed By: #### P INR, 43145-5, 4679-7, FEPR, 6793-4, 2132- 9, 2276-4, 2284-8, 2731-8, 93997-5 #### [facility] ([id number]) [address], [address] [place] [address] Basic Metabolic Panelon - Anion gap [Moles/Vol] 10 mmol/L 5 - 15 mmol/L [facility] Calcium [Mass/Vol] 8.8 mg/dL 8.5 - 10. 5 mg/dL [facility] Chloride [Moles/Vol] 102 mmol/L 98 - 10 9 mmol/L [facility] CO2 [Moles/Vol] 24 mmol/L 22 - 32 mmol/L [facility] Creatinine [Mass/Vol] 0.64 mg/dL 0.60 - 1.30 mg/dL [facility] Comment on above: METHOD TRACEABLE TO IDKS STANDARD eGFR (CKD-EPI)non-race dependent - PINF [facility] Comment on above: Reported eGFR is based on the CKD-EPI 2020 equation that does not use a race coefficient. Glucose [Mass/Vol] 119 mg/dL High 65 - 99 mg/dL [facility] Potassium [Moles/Vol] 4.3 mmol/L 3.5 - 5.0 mmol/L [facility] Sodium [Moles/Vol] 136 mmol/L 134 - 146 mmol/L [facility] Urea nitrogen [Mass/Vol] 14 mg/dL 5 - 23 mg/dL [facility] CBC without diffon Erythrocyte distribution width (RBC) [Ratio] 16.4 % High 11.5 - 15.0 % [facility] Hematocrit (Bld) [Volume fraction] 34.9 % Low 39 - 49 % [facility] Hemoglobin (Bld) [Mass/Vol] 11.8 g/dL Low 13.0 - 17.0 g/dL [facility] Interpretation and review of laboratory results Abnormal [facility] MCH (RBC) [Entitic mass] 28.7 pg 27 - 34 pg [facility] MCHC (RBC) [Mass/Vol] 33.7 g/dL 32 - 3 6 g/dL [facility] MCV (RBC) [Entitic vol] 85 fL 80 - 100 fL [facility] Platelet mean volume (Bld) [Entitic vol] 11.0 fL 7 - 12 fL [facility] Platelets (Bld) [#/Vol] 71 10*3/uL Low [facility] RBC (Bld) [#/Vol] 4.09 10*6/uL Low [facility] WBC corrected for nucl RBC Auto (Bld) [#/Vol] 6.7 [facility] COMPLETE BLOOD COUNTon 01-19 Erythrocyte distribution width (RBC) [Ratio] 16.4 % High 11.5-15.0 [facility] Comment on above: Performed By: #### P INR, 37400-0, 4679-7, FEPR, 6793-4, 2132- 9, 2276-4, 2284-8, 2731-8, 92081-4 #### [facility] ([id number]) [address], [address] [place] [address] Hematocrit (Bld) [Volume fraction] 34.9 % Low 39-49 [facility] Comment on above: Performed By: #### P INR, 40894-8, 4679-7, FEPR, 6793-4, 2132- 9, 2276-4, 2284-8, 2731-8, 55633-1 #### [facility] ([id number]) [address], [address] [place] [address] Hemoglobin (Bld) [Mass/Vol] 11.8 g/dL Low 13.0-17.0 [facility] Comment on above: Performed By: #### P INR, 56142-1, 4679-7, FEPR, 6793-4, 2132- 9, 2276-4, 2284-8, 2731-8, 72319-3 #### [facility] ([id number]) [address], [address] [place] [address] MCH (RBC) [Entitic mass] 28.7 pg Normal 27-34 [facility] Comment on above: Performed By: #### P INR, 80433-9, 4679-7, FEPR, 6793-4, 2132- 9, 2276-4, 2284-8, 2731-8, 95639-1 #### [facility] ([id number]) [address], [address] [place] [address] MCHC (RBC) [Mass/Vol] 33.7 g/dL Normal 32-36 [facility] Comment on above: Performed By: #### P INR, 34182-3, 4679-7, FEPR, 6793-4, 2132- 9, 2276-4, 2284-8, 2731-8, 40767-2 #### [facility] ([id number]) [address], [address] [place] [address] MCV (RBC) [Entitic vol] 85 fL Normal 80-100 [facility] Comment on above: Performed By: #### P INR, 54293-3, 4679-7, FEPR, 6793-4, 2132- 9, 2276-4, 2284-8, 2731-8, 99705-9 #### [facility] ([id number]) [address], [address] [place] [address] Platelet mean volume (Bld) [Entitic vol] 11.0 fL Normal 7-12 [facility] Comment on above: Performed By: #### P INR, 51407-2, 4679-7, FEPR, 6793-4, 2132- 9, 2276-4, 2284-8, 2731-8, 17503-4 #### [facility] ([id number]) [address], [address] [place] [address] Platelets (Bld) [#/Vol] 71 10*3/uL Low 150-450 [facility] Comment on above: Performed By: #### P INR, 00602-9, 4679-7, FEPR, 6793-4, 2132- 9, 2276-4, 2284-8, 2731-8, 69623-7 #### [facility] ([id number]) [address] [address], [address] [place] [address] RBC COUNT 4.09 X10E12/L Low 4.10-5.70 [facility] Comment on above: Performed By: #### P INR, 56145-4, 4679-7, FEPR, 6793-4, 2132- 9, 2276-4, 2284-8, 2731-8, 48457-6 #### [facility] ([id number]) [address], [address] [place] [address] WBC (Bld) [#/Vol] 6.7 10*3/uL Normal 4.0-11.0 [facility] Comment on above: Performed By: #### P INR, 88498-5, 4679-7, FEPR, 6793-4, 2132- 9, 2276-4, 2284-8, 2731-8, 39036-1 #### [facility] ([id number]) [address], [address] [place] [address] Glucose Glucometer (BldC) [M ass/Vol]on 01-20-2024 Glucose [Mass/Vol] 205 mg/dL High 65 - 99 mg/dL [facility] Interpretation and review of laboratory results Abnormal [facility] Glucose [Mass/Vol] 205 mg/dL High 65-99 [facility] Glucose [Mass/Vol] 131 mg/dL High 65 - 99 mg/dL [facility] Interpretation and review of laboratory results Abnormal [facility] Glucose [Mass/Vol] 131 mg/dL High 65-99 [facility] Glucose [Mass/Vol] 173 mg/dL High 65 - 99 mg/dL [facility] Interpretation and review of laboratory results Abnormal [facility] Glucose [Mass/Vol] 173 mg/dL High 65-99 [facility] Glucose [Mass/Vol] 120 mg/dL High 65 - 99 mg/dL [facility] Interpretation and review of laboratory results Abnormal [facility] Glucose [Mass/Vol] 120 mg/dL High 65-99 [facility] MAGNESIUMon 01-20-2024 Magnesium [Mass/Vol] 1.6 mg/dL Low 1.8-2.6 [facility] Comment on above: Performed By: #### P INR, 23165-8, 4679-7, FEPR, 6793-4, 2132- 9, 2276-4, 2284-8, 2731-8, 64547-3 #### [facility] ([id number]) [address], [address] [place] [address] Magnesiumon 01-20-2024 Magnesium [Mass/Vol] 1.6 mg/dL Low 1.8 - 2 .6 mg/dL [facility] No Panel Informationon 01-19 Interpretation and review of laboratory results Abnormal [facility] BASIC METABOLIC PANLon 01-18 Anion gap [Moles/Vol] 11 mmol/L Normal 5-15 [facility] Comment on above: Performed By: #### P INR, 01041-0, 4679-7, FEPR, 6793-4, 2132- 9, 2276-4, 2284-8, 2731-8, 21486-0 #### [facility] ([id number]) [address], [address] [place] [address] Calcium [Mass/Vol] 9.0 mg/dL Normal 8.5-10.5 [facility] Comment on above: Performed By: #### P INR, 68596-2, 4679-7, FEPR, 6793-4, 2132- 9, 2276-4, 2284-8, 2731-8, 69738-6 #### [facility] [facility] ([id number]) [address] [place] [address] Chloride [Moles/Vol] 102 mmol/L Normal 98-109 [facility] Comment on above: Performed By: #### P INR, 72699-4, 4679-7, FEPR, 6793-4, 2132- 9, 2276-4, 2284-8, 2731-8, 47304-9 #### [facility] ([id number]) [address], [address] [place] [address] CO2 [Moles/Vol] 23 mmol/L Normal 22-32 [facility] Comment on above: Performed By: #### P INR, 59096-9, 4679-7, FEPR, 6793-4, 2132- 9, 2276-4, 2284-8, 2731-8, 36403-9 #### [facility] ([id number]) [address], [address] [place] [address] Creatinine [Mass/Vol] 0.57 mg/dL Low 0.60-1.30 [facility] Comment on above: Result Comment: METH OD TRACEABLE TO IDMS STANDARD Performed By: #### P INR, 43562-5, 4679-7, FEPR, 6793-4, 2132-9, 2276-4, 2284-8, 2731-8, 63096-3 #### [facility] ([id number]) [address], [address] [place] [address] eGFR (CKD-EPI) NON-RACE DEPENDENT >90 Normal >59 [facility] Comment on above: Result Comment: Reported eGFR is based on the CKD-EPI 2021 equation that does not use a race coefficient. Performed By: #### P INR, 94315-1, 4679-7, FEPR, 6793-4, 2132-9, 2276-4, 2284-8, 2731-8, 78409-2 #### [facility] ([id number]) [address] [place] [address] Glucose [Mass/Vol] 150 mg/dL High 65-99 [facility] Comment on above: Performed By: #### P INR, 16189-2, 4679-7, FEPR, 6793-4, 2132- 9, 2276-4, 2284-8, 2731-8, 90405-3 #### [facility] ([id number]) [address], [address] [place] [address] Potassium [Moles/Vol] 4.5 mmol/L Normal 3.5-5.0 [facility] Comment on above: Performed By: #### P INR, 49957-4, 4679-7, FEPR, 6793-4, 2132- 9, 2276-4, 2284-8, 2731-8, 04525-7 #### [facility] ([id number]) [address] [place] [address] Sodium [Moles/Vol] 136 mmol/L Normal 134-146 [facility] Comment on above: Performed By: #### P INR, 71032-3, 4679-7, FEPR, 6793-4, 2132- 9, 2276-4, 2284-8, 2731-8, 21468-3 #### [facility] ([id number]) [address], [address] [place] [address] Urea nitrogen [Mass/Vol] 13 mg/dL Normal 5-23 [facility] Comment on above: Performed By: #### P INR, 45497-5, 4679-7, FEPR, 6793-4, 2132- 9, 2276-4, 2284-8, 2731-8, 49516-9 #### [facility] ([id number]) [address], [address] [place] [address] Basic Metabolic Panelon 06- Anion gap [Moles/Vol] 11 mmol/L 5 - 15 mmol/L [facility] Calcium [Mass/Vol] 9.0 mg/dL 8.5 - 10. 5 mg/dL [facility] Chloride [Moles/Vol] 102 mmol/L 98 - 10 9 mmol/L [facility] CO2 [Moles/Vol] 23 mmol/L 22 - 32 mmol/L [facility] Creatinine [Mass/Vol] 0.57 mg/dL Low 0.60 - 1.30 mg/dL [facility] Comment on above: METHOD TRACEABLE TO IDKS STANDARD eGFR (CKD-EPI)non-race dependent - PINF [facility] Comment on above: Reported eGFR is based on the CKD-EPI 2020 equation that does not use a race coefficient. Glucose [Mass/Vol] 150 mg/dL High 65 - 99 mg/dL [facility] Interpretation and review of laboratory results Abnormal [facility] Potassium [Moles/Vol] 4.5 mmol/L 3.5 - 5.0 mmol/L [facility] Sodium [Moles/Vol] 136 mmol/L 134 - 146 mmol/L [facility] Urea nitrogen [Mass/Vol] 13 mg/dL 5 - 23 mg/dL [facility] CBC without diffon Erythrocyte distribution width (RBC) [Ratio] 16.5 % High 11.5 - 15.0 % [facility] Hematocrit (Bld) [Volume fraction] 38.9 % Low 39 - 49 % [facility] Hemoglobin (Bld) [Mass/Vol] 13.4 g/dL 13.0 - 17.0 g/dL [facility] Interpretation and review of laboratory results Abnormal [facility] MCH (RBC) [Entitic mass] 29.1 pg 27 - 34 pg [facility] MCHC (RBC) [Mass/Vol] 34.4 g/dL 32 - 3 6 g/dL [facility] MCV (RBC) [Entitic vol] 85 fL 80 - 100 fL [facility] Platelet mean volume (Bld) [Entitic vol] 11.0 fL 7 - 12 fL [facility] Platelets (Bld) [#/Vol] 96 10*3/uL Low [facility] RBC (Bld) [#/Vol] 4.60 10*6/uL [facility] WBC corrected for nucl RBC Auto (Bld) [#/Vol] 9.8 [facility] COMPLETE BLOOD COUNTon 01-18 Erythrocyte distribution width (RBC) [Ratio] 16.5 % High 11.5-15.0 [facility] Comment on above: Performed By: #### P INR, 01356-2, 4679-7, FEPR, 6793-4, 2132- 9, 2276-4, 2284-8, 2731-8, 11001-5 #### [facility] ([id number]) [address], [address] [place] [address] Hematocrit (Bld) [Volume fraction] 38.9 % Low 39-49 [facility] Comment on above: Performed By: #### P INR, 96040-5, 4679-7, FEPR, 6793-4, 2132- 9, 2276-4, 2284-8, 2731-8, 45719-3 #### [facility] ([id number]) [address], [address] [place] [address] Hemoglobin (Bld) [Mass/Vol] 13.4 g/dL Normal 13.0-17.0 [facility] Comment on above: Performed By: #### P INR, 90218-3, 4679-7, FEPR, 6793-4, 2132- 9, 2276-4, 2284-8, 2731-8, 38335-1 #### [facility] ([id number]) [address], [address] [place] [address] MCH (RBC) [Entitic mass] 29.1 pg Normal 27-34 [facility] Comment on above: Performed By: #### P INR, 87574-9, 4679-7, FEPR, 6793-4, 2132- 9, 2276-4, 2284-8, 2731-8, 20396-2 #### [facility] ([id number]) [address], [address] [place] [address] MCHC (RBC) [Mass/Vol] 34.4 g/dL Normal 32-36 [facility] Comment on above: Performed By: #### P INR, 98535-4, 4679-7, FEPR, 6793-4, 2132- 9, 2276-4, 2284-8, 2731-8, 31307-8 #### [facility] ([id number]) [address], [address] [place] [address] MCV (RBC) [Entitic vol] 85 fL Normal 80-100 [facility] Comment on above: Performed By: #### P INR, 29908-6, 4679-7, FEPR, 6793-4, 2132- 9, 2276-4, 2284-8, 2731-8, 60955-6 #### [facility] ([id number]) [address], [address] [place] [address] Platelet mean volume (Bld) [Entitic vol] 11.0 fL Normal 7-12 [facility] Comment on above: Performed By: #### P INR, 02988-8, 4679-7, FEPR, 6793-4, 2132- 9, 2276-4, 2284-8, 2731-8, 02016-0 #### [facility] ([id number]) [address], [address] [place] [address] Platelets (Bld) [#/Vol] 96 10*3/uL Low 150-450 [facility] Comment on above: Performed By: #### P INR, 52251-4, 4679-7, FEPR, 6793-4, 2132- 9, 2276-4, 2284-8, 2731-8, 69445-1 #### [facility] ([id number]) [address], [address] [place] [address] RBC COUNT 4.60 X10E12/L Normal 4.10-5.70 [facility] Comment on above: Performed By: #### P INR, 70863-6, 4679-7, FEPR, 6793-4, 2132- 9, 2276-4, 2284-8, 2731-8, 13461-6 #### [facility] ([id number]) [address], [address] [place] [address] WBC (Bld) [#/Vol] 9.8 10*3/uL Normal 4.0-11.0 [facility] Comment on above: Performed By: #### P INR, 61276-7, 4679-7, FEPR, 6793-4, 2132- 9, 2276-4, 2284-8, 2731-8, 20446-2 #### [facility] ([id number]) [address], [address] [place] [address] Glucose Glucometer (BldC) [M ass/Vol]on 01-19-2024 Glucose [Mass/Vol] 201 mg/dL High 65 - 99 mg/dL [facility] Interpretation and review of laboratory results Abnormal [facility] Glucose [Mass/Vol] 201 mg/dL High 65-99 [facility] Glucose [Mass/Vol] 223 mg/dL High 65 - 99 mg/dL [facility] Interpretation and review of laboratory results Abnormal [facility] Glucose [Mass/Vol] 223 mg/dL High 65-99 [facility] Glucose [Mass/Vol] 139 mg/dL High 65 - 99 mg/dL [facility] Interpretation and review of laboratory results Abnormal [facility] Glucose [Mass/Vol] 139 mg/dL High 65-99 [facility] Glucose [Mass/Vol] 243 mg/dL High 65 - 99 mg/dL [facility] Interpretation and review of laboratory results Abnormal [facility] Glucose [Mass/Vol] 243 mg/dL High 65-99 [facility] Glucose [Mass/Vol] 141 mg/dL High 65 - 99 mg/dL [facility] Interpretation and review of laboratory results Abnormal [facility] Glucose [Mass/Vol] 141 mg/dL High 65-99 [facility] MAGNESIUMon 01-19-2024 Magnesium [Mass/Vol] 1.4 mg/dL Low 1.8-2.6 [facility] Comment on above: Performed By: #### P INR, 94338-5, 4679-7, FEPR, 6793-4, 2132- 9, 2276-4, 2284-8, 2731-8, 67220-7 #### [facility] ([id number]) [address], [address] [place] [address] Magnesiumon 01-19-2024 Magnesium [Mass/Vol] 1.4 mg/dL Low 1.8 - 2 .6 mg/dL [facility] Magnesium [Mass/Vol]on 01-18 Interpretation and review of laboratory results Abnormal [facility] BASIC METABOLIC PANLon 01-17 Anion gap [Moles/Vol] 9 mmol/L Normal 5-15 [facility] Comment on above: Performed By: #### P INR, 24736-0, 4679-7, FEPR, 6793-4, 2132- 9, 2276-4, 2284-8, 2731-8, 58127-8 #### [facility] ([id number]) [address], [address] [place] [address] Calcium [Mass/Vol] 9.4 mg/dL Normal 8.5-10.5 [facility] Comment on above: Performed By: #### P INR, 36035-9, 4679-7, FEPR, 6793-4, 2132- 9, 2276-4, 2284-8, 2731-8, 07617-2 #### [facility] ([id number]) [address], [address] [place] [address] Chloride [Moles/Vol] 101 mmol/L Normal 98-109 [facility] Comment on above: Performed By: #### P INR, 89905-1, 4679-7, FEPR, 6793-4, 2131- 9, 2276-4, 2284-8, 2731-8, 58133-9 #### [facility] ([id number]) [address], [address] [place] [address] CO2 [Moles/Vol] 28 mmol/L Normal 22-32 [facility] Comment on above: Performed By: #### P INR, 13513-5, 4679-7, FEPR, 6793-4, 2131- 9, 2276-4, 2284-8, 2731-8, 61167-8 #### [facility] ([id number]) [address], [address] [place] [address] Creatinine [Mass/Vol] 0.70 mg/dL Normal 0.60-1.30 [facility] Comment on above: Result Comment: METH OD TRACEABLE TO IDMS STANDARD Performed By: #### P INR, 93681-1, 4679-7, FEPR, 6793-4, 2131-9, 2276-4, 2284-8, 2731-8, 69946-6 #### [facility] ([id number]) [address], [address] [place] [address] eGFR (CKD-EPI) NON-RACE DEPENDENT >90 Normal >59 [facility] Comment on above: Result Comment: Reported eGFR is based on the CKD-EPI 2020 equation that does not use a race coefficient. Performed By: #### P INR, 59262-4, 4679-7, FEPR, 6793-4, 2132-9, 2276-4, 2284-8, 2731-8, 14367-4 #### [facility] ([id number]) [address], [address] [place] [address] Glucose [Mass/Vol] 123 mg/dL High 65-99 [facility] Comment on above: Performed By: #### P INR, 99772-7, 4679-7, FEPR, 6793-4, 2132- 9, 2276-4, 2284-8, 2731-8, 13931-4 #### [facility] ([id number]) [address], [address] [place] [address] Potassium [Moles/Vol] 3.9 mmol/L Normal 3.5-5.0 [facility] Comment on above: Performed By: #### P INR, 46884-2, 4679-7, FEPR, 6793-4, 2132- 9, 2276-4, 2284-8, 2731-8, 29339-4 #### [facility] ([id number]) [address], [address] [place] [address] Sodium [Moles/Vol] 138 mmol/L Normal 134-146 [facility] Comment on above: Performed By: #### P INR, 46241-8, 4679-7, FEPR, 6793-4, 2132- 9, 2276-4, 2284-8, 2731-8, 50409-9 #### [facility] ([id number]) [address], [address] [place] [address] Urea nitrogen [Mass/Vol] 8 mg/dL Normal 5-23 [facility] Comment on above: Performed By: #### P INR, 43930-3, 4679-7, FEPR, 6793-4, 2132- 9, 2276-4, 2284-8, 2731-8, 27707-2 #### [facility] ([id number]) [address], [address] [place] [address] Basic Metabolic Panelon 06-0 6-2024 Anion gap [Moles/Vol] 9 mmol/L 5 - 15 mmol/L [facility] Calcium [Mass/Vol] 9.4 mg/dL 8.5 - 10. 5 mg/dL [facility] Chloride [Moles/Vol] 101 mmol/L 98 - 10 9 mmol/L [facility] CO2 [Moles/Vol] 28 mmol/L 22 - 32 mmol/L [facility] Creatinine [Mass/Vol] 0.70 mg/dL 0.60 - 1.30 mg/dL [facility] Comment on above: METHOD TRACEABLE TO [facility] STANDARD eGFR (CKD-EPI)non-race dependent - PINF [facility] Comment on above: Reported eGFR is based on the CKD-EPI 2020 equation that does not use a race coefficient. Glucose [Mass/Vol] 123 mg/dL High 65 - 99 mg/dL [facility] Interpretation and review of laboratory results Abnormal [facility] Potassium [Moles/Vol] 3.9 mmol/L 3.5 - 5.0 mmol/L [facility] Sodium [Moles/Vol] 138 mmol/L 134 - 146 mmol/L [facility] Urea nitrogen [Mass/Vol] 8 mg/dL 5 - 23 mg/dL [facility] CBC without diffon Erythrocyte distribution width (RBC) [Ratio] 17.0 % High 11.5 - 15.0 % [facility] Hematocrit (Bld) [Volume fraction] 44.5 % 39 - 49 % [facility] Hemoglobin (Bld) [Mass/Vol] 15.2 g/dL 13.0 - 17.0 g/dL [facility] Interpretation and review of laboratory results Abnormal [facility] MCH (RBC) [Entitic mass] 29.2 pg 27 - 34 pg [facility] MCHC (RBC) [Mass/Vol] 34.2 g/dL 32 - 3 6 g/dL [facility] MCV (RBC) [Entitic vol] 86 fL 80 - 100 fL [facility] Platelet mean volume (Bld) [Entitic vol] 10.8 fL 7 - 12 fL [facility] Platelets (Bld) [#/Vol] 80 10*3/uL Low [facility] RBC (Bld) [#/Vol] 5.21 10*6/uL [facility] WBC corrected for nucl RBC Auto (Bld) [#/Vol] 6.2 [facility] COMPLETE BLOOD COUNTon 01-17 Erythrocyte distribution width (RBC) [Ratio] 17.0 % High 11.5-15.0 [facility] Comment on above: Performed By: #### P INR, 60397-9, 4679-7, FEPR, 6793-4, 2132- 9, 2276-4, 2284-8, 2731-8, 29855-8 #### [facility] ([id number]) [address], [address] [place] [address] Hematocrit (Bld) [Volume fraction] 44.5 % Normal 39-49 [facility] Comment on above: Performed By: #### P INR, 35985-7, 4679-7, FEPR, 6793-4, 2132- 9, 2276-4, 2284-8, 2731-8, 92983-1 #### [facility] ([id number]) [address], [address] [place] [address] Hemoglobin (Bld) [Mass/Vol] 15.2 g/dL Normal 13.0-17.0 [facility] Comment on above: Performed By: #### P INR, 33767-3, 4679-7, FEPR, 6793-4, 2132- 9, 2276-4, 2284-8, 2731-8, 94251-1 #### [facility] ([id number]) [address], [address] [place] [address] MCH (RBC) [Entitic mass] 29.2 pg Normal 27-34 [facility] Comment on above: Performed By: #### P INR, 24843-3, 4679-7, FEPR, 6793-4, 2132- 9, 2276-4, 2284-8, 2731-8, 54649-2 #### [facility] ([id number]) [address], [address] [place] [address] MCHC (RBC) [Mass/Vol] 34.2 g/dL Normal 32-36 [facility] Comment on above: Performed By: #### P INR, 02002-3, 4679-7, FEPR, 6793-4, 2132- 9, 2276-4, 2284-8, 2731-8, 99628-8 #### [facility] ([id number]) [address], [address] [place] [address] MCV (RBC) [Entitic vol] 86 fL Normal 80-100 [facility] Comment on above: Performed By: #### P INR, 36403-7, 4679-7, FEPR, 6793-4, 2132- 9, 2276-4, 2284-8, 2731-8, 45880-7 #### [facility] ([id number]) [address], [address] [place] [address] Platelet mean volume (Bld) [Entitic vol] 10.8 fL Normal 7-12 [facility] Comment on above: Performed By: #### P INR, 58437-1, 4679-7, FEPR, 6793-4, 2132- 9, 2276-4, 2284-8, 2731-8, 94431-2 #### [facility] ([id number]) [address], [address] [place] [address] Platelets (Bld) [#/Vol] 80 10*3/uL Low 150-450 [facility] Comment on above: Performed By: #### P INR, 90217-6, 4679-7, FEPR, 6793-4, 2132- 9, 2276-4, 2284-8, 2731-8, 75249-3 #### [facility] ([id number]) [address], [address] [place] [address] RBC COUNT 5.21 X10E12/L Normal 4.10-5.70 [facility] Comment on above: Performed By: #### P INR, 65172-2, 4679-7, FEPR, 6793-4, 2132- 9, 2276-4, 2284-8, 2731-8, 64181-3 #### [facility] ([id number]) [address], [address] [place] [address] WBC (Bld) [#/Vol] 6.2 10*3/uL Normal 4.0-11.0 [facility] Comment on above: Performed By: #### P INR, 91365-8, 4679-7, FEPR, 6793-4, 2132- 9, 2276-4, 2284-8, 2731-8, 03637-3 #### [facility] ([id number]) [address], [address] [place] [address] Glucose Glucometer (BldC) [M ass/Vol]on 01-18-2024 Glucose [Mass/Vol] 238 mg/dL High 65 - 99 mg/dL [facility] Interpretation and review of laboratory results Abnormal [facility] Glucose [Mass/Vol] 238 mg/dL High 65-99 [facility] Glucose [Mass/Vol] 197 mg/dL High 65 - 99 mg/dL [facility] Interpretation and review of laboratory results Abnormal [facility] Glucose [Mass/Vol] 197 mg/dL High 65-99 [facility] Glucose [Mass/Vol] 188 mg/dL High 65 - 99 mg/dL [facility] Interpretation and review of laboratory results Abnormal [facility] Glucose [Mass/Vol] 188 mg/dL High 65-99 [facility] Glucose [Mass/Vol] 143 mg/dL High 65 - 99 mg/dL [facility] Interpretation and review of laboratory results Abnormal [facility] Glucose [Mass/Vol] 143 mg/dL High 65-99 [facility] Glucose [Mass/Vol] 119 mg/dL High 65 - 99 mg/dL [facility] Interpretation and review of laboratory results Abnormal [facility] Glucose [Mass/Vol] 119 mg/dL High 65-99 [facility] HGB A1C (GLYCO-HGB)on 2023 Glucose [Mass/Vol] 143 mg/dL Normal [facility] Comment on above: Performed By: #### P INR, 50128-5, 4679-7, FEPR, 6793-4, 2132- 9, 2276-4, 2284-8, 2731-8, 88522-4 #### [facility] ([id number]) [address] [place] [address], [address] [place] [address] HbA1c (Bld) [Mass fraction] 6.6 % High 4.4-5.6 [facility] Comment on above: Result Comment: NOTE ADA Guidelines Result HgbA1c Normal : less than 5.7 % Prediabetes : 5.7 % to 6.4 % Diabetes : > 6.4 % Use with caution in patients with abnormal hemoglobin variants as the half-life of red blood cells and in vivo glycation rates are affected. Performed By: #### P INR, 11640-7, 4679-7, FEPR, 6793-4, 2132-9, 2276-4, 2284-8, 2731-8, 11424-9 #### [facility] ([id number]) [address] [place] [address], [address] [place] [address] Hemoglobin A1con 01-18-2024 Average glucose Estimated from glycated hemoglobin (Bld) [Mass/Vol] 143 mg/dL [facility] HbA1c (Bld) [Mass fraction] 6.6 % High 4.4 - 5.6 % [facility] Comment on above: NOTE ADA Guidelines Result HgbA1c Normal : less than 5.7 % Prediabetes : 5.7 % to 6.4 % Diabetes : > 6.4 % Use with caution in patients with abnormal hemoglobin variants as the half-life of red blood cells and in vivo glycation rates are affected. Interpretation and review of laboratory results Abnormal [facility] MAGNESIUMon 01-18-2024 Magnesium [Mass/Vol] 1.7 mg/dL Low 1.8-2.6 [facility] Comment on above: Performed By: #### P INR, 59826-0, 4679-7, FEPR, 6793-4, 2132- 9, 2276-4, 2284-8, 2731-8, 09842-9 #### [facility] ([id number]) [address], [address] [place] [address] Magnesium [Mass/Vol]on 01-17 Interpretation and review of laboratory results Abnormal [facility] XR HIP RT 2-3 VIEWS W OR WO PELVISon 01-18-2024 XR HIP RT 2-3 VIEWS W OR WO PELVIS XR HIP RT 2-3 VIEWS W OR WO PELVIS XR HIP RT 2-3 VIEWS W OR WO PELVIS INDICATION: Pain FINDINGS: Intraoperative fluoroscopy. No radiologist present during the examination. Reference Air Kerma = 8.63 mGy Fluoroscopy time: 40 seconds Saved images: 13 IMPRESSION: Intraoperative fluoroscopy provided as above. See operative report for additional details. Finalized by Nathan Skinner on 01/18/2024 3:43 PM Normal [facility] XR HIP RT 2-3 VIEWS W OR WO PELVIS XR HIP RT 2-3 VIEWS W OR WO PELVIS XR HIP RT 2-3 VIEWS W PELVIS HISTORY: post op right hip short IMN. COMPARISON: none IMPRESSION: PELVIS: No displaced or pelvic fracture. Degenerative changes sacroiliac joints, symphysis pubis. RIGHT HIP: Right femoral intramedullary nail transfixes nondisplaced intertrochanteric fracture. No hardware complication. Cutaneous esmer. Finalized by Valdo Gonzalez MD on 01/18/2024 3:40 PM Normal [facility] XR Lumbar spine 2 or 3 Views on 01-18-2024 HISTORY: A 53-year-o ld male with the history of the right hip fracture. Complaining of the low back pain. TECHNIQUE: Lumbar spine: AP and lateral views, 2 views COMPARISON: No relevant prior studies are available for comparison. FINDINGS: Vertebral heights are normal. There is no evidence of compression fracture, spondylolysis or spondylolisthesis. There are degenerative changes in the lumbar spine. L2-L3, L4-L5 and L5-S1 disc spaces are reduced. Facet arthropathy seen at L4-L5 and L5-S1. Pedicles are intact. Both sacroiliac joints are unremarkable. There are degenerative changes in the hip joints. Bowel gas pattern is nonobstructive with significant amount of feces. IMPRESSION: * No evidence of compression fracture, spondylolisthesis or acute bony pathology. * Diffuse disc degenerative disease in the lumbar spine with reduction of disc spaces at multiple levels. Facet arthropathy seen at L4-L5 and L5-S1. Finalized by Clifford Jauregui MD on 01/18/2024 8:31 AM [facility] Clifford Jauregui MD - 01/18/2024 HISTORY: A 53-year-old male with the history of the right hip fracture. Complaining of the low back pain. TECHNIQUE: Lumbar spine: AP and lateral views, 2 views COMPARISON: No relevant prior studies are available for comparison. FINDINGS: Vertebral heights are normal. There is no evidence of compression fracture, spondylolysis or spondylolisthesis. There are degenerative changes in the lumbar spine. L2-L3, L4-L5 and L5-S1 disc spaces are reduced. Facet arthropathy seen at L4-L5 and L5-S1. Pedicles are intact. Both sacroiliac joints are unremarkable. There are degenerative changes in the hip joints. Bowel gas pattern is nonobstructive with significant amount of feces. IMPRESSION: * No evidence of compression fracture, spondylolisthesis or acute bony pathology. * Diffuse disc degenerative disease in the lumbar spine with reduction of disc spaces at multiple levels. Facet arthropathy seen at L4-L5 and L5-S1. Finalized by Clifford Jauregui MD on 01/18/2024 8:31 AM [facility] Radiology Study observation (narrative) [facility] XR Lumbar spine 2 or 3 Views Ordered By: Clifford Jauregui on 01-18-2024 [facility] [employer] [facility] [employer] Work Phone: XR Pelvis and Hip - right 2 Viewson 01-18-2024 XR HIP RT 2-3 VIEWS W OR WO PELVIS INDICATION: Pain FINDINGS: Intraoperative fluoroscopy. No radiologist present during the examination. Reference Air Kerma = 8.63 mGy Fluoroscopy time: 40 seconds Saved images: 13 IMPRESSION: Intraoperative fluoroscopy provided as above. See operative report for additional details. Finalized by Nathan Skinner on 01/18/2024 3:[address] [facility] Nathan Skinner MD - 01/18/2024 XR HIP RT 2-3 VIEWS W OR WO PELVIS INDICATION: Pain FINDINGS: Intraoperative fluoroscopy. No radiologist present during the examination. Reference Air Kerma = 8.63 mGy Fluoroscopy time: 40 seconds Saved images: 13 IMPRESSION: Intraoperative fluoroscopy provided as above. See operative report for additional details. Finalized by Nathan Skinner on 01/18/2024 3:43 PM [facility] Radiology Study observation (narrative) [facility] XR HIP RT 2-3 VIEWS W PELVIS HISTORY: post op right hip short IMN. COMPARISON: none IMPRESSION: PELVIS: No displaced or pelvic fracture. Degenerative changes sacroiliac joints, symphysis pubis. RIGHT HIP: Right femoral intramedullary nail transfixes nondisplaced intertrochanteric fracture. No hardware complication. Cutaneous esmer. Finalized by Valdo Gonzalez MD on 01/18/2024 3:40 PM Valdo Parham MD - 01/18/2024 XR HIP RT 2-3 VIEWS W PELVIS HISTORY: post op right hip short IMN. COMPARISON: none IMPRESSION: PELVIS: No displaced or pelvic fracture. Degenerative changes sacroiliac joints, symphysis pubis. RIGHT HIP: Right femoral intramedullary nail transfixes nondisplaced intertrochanteric fracture. No hardware complication. Cutaneous esmer. Finalized by Valdo Gonzalez MD on 01/18/2024 3:40 PM [facility] Radiology Study observation (narrative) [facility] XR Pelvis and Hip - right 2 ViewsOrdered By: Nathan Skinner on 01-18-2024 [facility] Work Phone: XR Pelvis and Hip - right 2 ViewsOrdered By: Valdo Gonzalez on 01-18-2024 [facility] Work Phone: XR SPINE LUMBAR 2 OR 3 VWSon 01-18-2024 XR SPINE LUMBAR 2 OR 3 VWS XR SPINE LUMBAR 2 OR 3 VWS HISTORY: A 53-year-old male with the history of the right hip fracture. Complaining of the low back pain. TECHNIQUE: Lumbar spine: AP and lateral views, 2 views COMPARISON: No relevant prior studies are available for comparison. FINDINGS: Vertebral heights are normal. There is no evidence of compression fracture, spondylolysis or spondylolisthesis. There are degenerative changes in the lumbar spine. L2-L3, L4-L5 and L5-S1 disc spaces are reduced. Facet arthropathy seen at L4-L5 and L5-S1. Pedicles are intact. Both sacroiliac joints are unremarkable. There are degenerative changes in the hip joints. Bowel gas pattern is nonobstructive with significant amount of feces. IMPRESSION: * No evidence of compression fracture, spondylolisthesis or acute bony pathology. * Diffuse disc degenerative disease in the lumbar spine with reduction of disc spaces at multiple levels. Facet arthropathy seen at L4-L5 and L5-S1. Finalized by Clifford Jauregui MD on 01/18/2024 8:31 AM Normal [facility] APTTon 01-17-2024 aPTT Coag (PPP) [Time] 30 s [facility] CBC AND AUTO DIFFon 01-17-20 24 ABSOLUTE BASOPHIL 0.0 X10E9/L Normal 0.0-0.2 [facility] Comment on above: Performed By: #### C MP, 09074-5, PINR, 51440-6, CBCA #### [facility] ([id number]) [address] [place] [address], [place] [address] ABSOLUTE NEUTROPHIL 6.0 X10E9/L Normal 1.5-6.6 [facility] Comment on above: Performed By: #### C MP, 96703-6, PINR, 28845-8, CBCA #### [facility] ([id number]) [address] [place] [address] 76648 Basophils/100 WBC (Bld) 0.4 % Normal [facility] Comment on above: Performed By: #### C MP, 27999-7, PINR, 14956-7, CBCA #### [facility] ([id number]) [address] [place] [address] 94339 Eosinophils (Bld) [#/Vol] 0.0 10*3/uL Normal 0.0-0.[address] [facility] Comment on above: Performed By: #### C MP, 95697-5, PINR, 97026-1, CBCA #### [facility] ([id number]) [address] [place] [address] 45745 Eosinophils/100 WBC (Bld) 0.2 % Normal [facility] Comment on above: Performed By: #### C MP, 05211-7, PINR, 00296-8, CBCA #### [facility] ([id number]) [address] [place] [address] 14855 Erythrocyte distribution width (RBC) [Ratio] 16.8 % High 11.5-15.[address] [facility] Comment on above: Performed By: #### C MP, 94046-7, PINR, 09443-2, CBCA #### [facility] ([id number]) [address] [place] [address] 14330 Hematocrit (Bld) [Volume fraction] 40.6 % Normal 39-[address] [facility] Comment on above: Performed By: #### C MP, 43301-8, PINR, 70602-6, CBCA #### [facility] ([id number]) [address] [place] [address] [place] [address] Hemoglobin (Bld) [Mass/Vol] 13.7 g/dL Normal 13.0-17.[address] [facility] Comment on above: Performed By: #### C MP, 00616-2, PINR, 19352-0, CBCA #### [facility] ([id number]) [address] [place] [address] 25101 Lymphocytes (Bld) [#/Vol] 1.4 10*3/uL Normal 1.0-3.[address] [facility] Comment on above: Performed By: #### C ANA MARIA, 26557-4, PINR, 26271-1, CBCA #### [facility] ([id number]) [address] [place] [address] 61547 Lymphocytes/100 WBC (Bld) 17.4 % Normal [facility] Comment on above: Performed By: #### C ANA MARIA, 73933-2, PINR, 31178-6, CBCA #### [facility] ([id number]) [address] [place] [address] 60306 MCH (RBC) [Entitic mass] 28.6 pg Normal 27-[address] [facility] Comment on above: Performed By: #### C ANA MARIA, 07484-2, PINR, 23408-8, CBCA #### [facility] ([id number]) [address] [place] [address] 33000 MCHC (RBC) [Mass/Vol] 33.8 g/dL Normal 32-36 [facility] Comment on above: Performed By: #### C ANA MARIA, 77216-5, PINR, 16060-5, CBCA #### [facility] ([id number]) [address] [place] [address] 59039 MCV (RBC) [Entitic vol] 85 fL Normal 80-[address] [facility] Comment on above: Performed By: #### C ANA MARIA, 48304-5, PINR, 04045-3, CBCA #### [facility] ([id number]) [address] [place] [address] 69435 Monocytes (Bld) [#/Vol] 0.6 10*3/uL Normal 0-0.[address] [facility] Comment on above: Performed By: #### C MP, 88450-8, PINR, 65086-6, CBCA #### [facility] ([id number]) [address] [place] [address] 26895 Monocytes/100 WBC (Bld) 7.8 % Normal [facility] Comment on above: Performed By: #### C MP, 62707-9, PINR, 16190-2, CBCA #### [facility] ([id number]) [address] [place] [address] 82776 Neutrophils/100 WBC (Bld) 74.2 % Normal [facility] Comment on above: Performed By: #### C MP, 43390-0, PINR, 21945-6, CBCA #### [facility] ([id number]) [address] [place] [address] 21247 Platelet mean volume (Bld) [Entitic vol] 11.1 fL Normal 7-[address] [facility] Comment on above: Performed By: #### C MP, 14157-6, PINR, 96633-7, CBCA #### [facility] ([id number]) [address] [place] [address] 89644 Platelets (Bld) [#/Vol] 99 10*3/uL Low 150-[address] [facility] Comment on above: Performed By: #### C MP, 06452-7, PINR, 65726-2, CBCA #### [facility] ([id number]) [address] [place] [address] 85058 RBC COUNT 4.80 X10E12/L Normal 4.10-5.[address] [facility] Comment on above: Performed By: #### C MP, 35809-1, PINR, 67399-9, CBCA #### [facility] ([id number]) [address] [place] [address] 77058 WBC (Bld) [#/Vol] 8.1 10*3/uL Normal 4.0-11.0 [facility] Comment on above: Performed By: #### C MP, 55866-0, PINR, 23898-6, CBCA #### [facility] ([id number]) [address] [place] [address] 97358 COMPREHENSIVE METABOLIC PANE Benito 01-17-2024 Albumin [Mass/Vol] 3.9 g/dL Normal 3.2-5.3 [facility] Comment on above: Performed By: #### C MP, 04243-7, PINR, 53512-8, CBCA #### [facility] ([id number]) [address] [place] [address] 65799 ALP [Catalytic activity/Vol] 42 U/L Normal 39-[address] [facility] Comment on above: Performed By: #### C MP, 81385-1, PINR, 52737-8, CBCA #### [facility] ([id number]) [address] [place] [address] 40420 ALT [Catalytic activity/Vol] 13 U/L Normal 0-[address] [facility] Comment on above: Performed By: #### C MP, 70448-8, PINR, 88379-8, CBCA #### [facility] ([id number]) [address] [place] [address] 19209 Anion gap [Moles/Vol] 10 mmol/L Normal 5-15 [facility] Comment on above: Performed By: #### C MP, 47772-5, PINR, 63708-7, CBCA #### [facility] ([id number]) [address] [place] [address] [place] [address] AST [Catalytic activity/Vol] 24 U/L Normal 0-[address] [facility] Comment on above: Performed By: #### C MP, 35456-9, PINR, 25968-7, CBCA #### [facility] ([id number]) [address] [place] [address] 54565 Bilirubin [Mass/Vol] 0.6 mg/dL Normal 0.3-1.2 [facility] Comment on above: Performed By: #### C MP, 42366-4, PINR, 67028-7, CBCA #### [facility] ([id number]) [address] [place] [address] 65687 Calcium [Mass/Vol] 8.8 mg/dL Normal 8.5-10.5 [facility] Comment on above: Performed By: #### C MP, 60121-9, PINR, 70762-9, CBCA #### [facility] ([id number]) [address] [place] [address] 09530 Chloride [Moles/Vol] 101 mmol/L Normal 98-109 [facility] Comment on above: Performed By: #### C MP, 91231-7, PINR, 00377-5, CBCA #### [facility] ([id number]) [address] [place] [address] 06891 CO2 [Moles/Vol] 25 mmol/L Normal 22-[address] [facility] Comment on above: Performed By: #### C MP, 50798-6, PINR, 16426-6, CBCA #### [facility] ([id number]) [address] [place] [address] 89833 Creatinine [Mass/Vol] 0.95 mg/dL Normal 0.70-1.20 [facility] Comment on above: Result Comment: METH OD TRACEABLE TO IDMS STANDARD Performed By: #### C MP, 86027-8, PINR, 45030-5, CBCA #### [facility] ([id number]) [address] [place] [address] 97755 eGFR (CKD-EPI) NON-RACE DEPENDENT >90 Normal >[address] [facility] Comment on above: Result Comment: Reported eGFR is based on the CKD-EPI 1 equation that does not use a race coefficient. Performed By: #### C ANA MARIA, 04879-9, PINR, 86046-5, CBCA #### [facility] ([id number]) [address] [place] [address] 64599 Glucose [Mass/Vol] 102 mg/dL High 65-99 [facility] Comment on above: Performed By: #### C ANA MARIA, 57360-3, PINR, 48030-7, CBCA #### [facility] ([id number]) [address] [place] [address] 46244 Potassium [Moles/Vol] 3.3 mmol/L Low 3.5-5.0 [facility] Comment on above: Performed By: #### C ANA MARIA, 91065-5, PINR, 34447-6, CBCA #### [facility] ([id number]) [address] [place] [address] 16769 Protein [Mass/Vol] 6.6 g/dL Normal 6.0-8.0 [facility] Comment on above: Performed By: #### C ANA MARIA, 29416-5, PINR, 37005-9, CBCA #### [facility] ([id number]) [address] [place] [address] 95922 Sodium [Moles/Vol] 136 mmol/L Normal 134-146 [facility] Comment on above: Performed By: #### C ANA MARIA, 01864-6, PINR, 74544-0, CBCA #### [facility] ([id number]) [address] [place] [address] 49142 Urea nitrogen [Mass/Vol] 17 mg/dL Normal 5-[address] [facility] Comment on above: Performed By: #### C MP, 51106-4, PINR, 30470-2, CBCA #### [facility] ([id number]) [address] [place] [address], [place] [address] CT HIP RT WO CONTon 01-17-[address] HIP RT WO CONT CT HIP RT WO CONT CT right hip without contrast HISTORY: Fracture COMPARISON: Radiograph earlier same day TECHNIQUE: CT right hip without contrast performed according to standard protocol. FINDINGS: Acute fracture extending from the right greater trochanter through the intertrochanteric region. No displacement. Hip joint intact. No additional fractures. Soft tissue structures are unremarkable. IMPRESSION: * Acute nondisplaced intertrochanteric right hip fracture. All CT scans at this facility use dose modulation, iterative reconstruction, and/or weight based dosing when appropriate to reduce radiation dose to as low as reasonably achievable. Finalized by Sylvester Collins MD on 01/17/2024 4:37 AM Normal [facility] ECG 12 leadon 01-17-2024 TRACEMASTERVUE [facility] FERRITINon 01-17-2024 Ferritin [Mass/Vol] 42 ng/mL Normal 24-336 [facility] Comment on above: Performed By: #### P INR, 51966-2, 4679-7, FEPR, 6793-4, 2132- 9, 2276-4, 2284-8, 2731-8, 01263-3 #### [facility] ([id number]) [address] [place] [address], [address] [place] [address] Ferritinon 01-17-2024 Ferritin [Mass/Vol] 42 ng/mL 24 - 336 ng/mL [facility] Folateon 01-17-2024 Folate [Mass/Vol] 9.3 ng/mL 5.8 - PINF ng/mL [facility] Comment on above: NEW REFERENCE RANGE Folate [Mass/Vol]on 01-17-20 24 FOLIC ACID 9.3 ng/mL Normal >5.8 [facility] Comment on above: Result Comment: NEW REFERENCE RANGE Performed By: #### P INR, 39574-5, 4679-7, FEPR, 6793-4, 2132-9, 2276-4, 2284-8, 2731-8, 23447-9 #### [facility] ([id number]) [address], [address] [place] [address] Glucose Glucometer (BldC) [M ass/Vol]on 01-17-2024 Glucose [Mass/Vol] 94 mg/dL 65 - 99 mg/dL [facility] Glucose [Mass/Vol] 94 mg/dL Normal 65-99 [facility] IRON PROFILEon 01-17-2024 Iron [Mass/Vol] 74 ug/dL Normal 50-212 [facility] Comment on above: Result Comment: SPEC IMEN HEMOLYZED, RESULTS INCREASED SLIGHTLY HEMOLYZED Performed By: #### P INR, 78155-9, 4679-7, FEPR, 6793-4, 2132-9, 2276-4, 2284-8, 2731-8, 87579-4 #### [facility] ([id number]) [address], [address] [place] [address] IRON BINDING 449 ug/dL High 250-425 [facility] Comment on above: Performed By: #### P INR, 58343-3, 4679-7, FEPR, 6793-4, 2132- 9, 2276-4, 2284-8, 2731-8, 84150-3 #### [facility] ([id number]) [address], [address] [place] [address] IRON SATURATION 16 % SATURATION Low 20-50 [facility] Comment on above: Performed By: #### P INR, 81651-8, 4679-7, FEPR, 6793-4, 2132- 9, 2276-4, 2284-8, 2731-8, 51778-3 #### [facility] ([id number]) [address], [address] [place] [address] Iron and TIBCon 01-17-2024 Interpretation and review of laboratory results Abnormal [facility] Iron [Mass/Vol] 74 ug/dL 50 - 212 ug/dL [facility] Comment on above: SPECIMEN HEMOLYZED, RESULTS INCREASED SLIGHTLY HEMOLYZED Iron binding capacity [Mass/Vol] 449 ug/dL High 250 - 425 ug/dL [facility] Iron saturation [Mass fraction] 16 Low [facility] MAGNESIUMon 01-17-2024 Magnesium [Mass/Vol] 1.3 mg/dL Low 1.8-2.6 [facility] Comment on above: Performed By: #### C MP, 45009-9, PINR, 98197-1, CBCA #### [facility] ([id number]) [address] [place] [address], [place] [address] No Panel Informationon 01-16 [facility] PROTIME AND INRon 01-17-2024 INR Coag (PPP) [Relative time] 1.0 {INR} Normal 0.8-1.1 [facility] Comment on above: Performed By: #### P INR, 01537-6, 4679-7, FEPR, 6793-4, 2132- 9, 2276-4, 2284-8, 2731-8, 04175-9 #### [facility] ([id number]) [address], [address] [place] [address] PT Coag (PPP) [Time] 12.2 s Normal 9.8-13.2 [facility] Comment on above: Performed By: #### P INR, 19432-4, 4679-7, FEPR, 6793-4, 2132- 9, 2276-4, 2284-8, 2731-8, 23834-8 #### [facility] ([id number]) [address], [address] [place] [address] INR Coag (PPP) [Relative time] 1.1 {INR} Normal 0.8-1.[address] [facility] Comment on above: Performed By: #### C MP, 51469-1, PINR, 48106-8, CBCA #### [facility] ([id number]) [address] [place] [address] 33217 PT Coag (PPP) [Time] 12.5 s Normal 9.8-13.2 [facility] Comment on above: Result Comment: NEW REFERENCE RANGE Performed By: #### C MP, 43743-9, PINR, 86428-2, CBCA #### [facility] ([id number]) [address] [place] [address] Parathyrin.intact [Mass/Vol] on 01-17-2024 PTH INTACT 27 pg/mL Normal 12-88 [facility] Comment on above: Performed By: #### P INR, 47404-1, 4679-7, FEPR, 6793-4, 2132- 9, 2276-4, 2284-8, 2731-8, 13923-7 #### [facility] ([id number]) [address], [address] [place] [address] Parathyroid Hormone, intacto n 01-17-2024 Parathyrin.intact [Mass/Vol] 27 pg/mL 12 - 88 pg/mL [facility] Prealbuminon 01-17-2024 Prealbumin IA [Mass/Vol] 21 mg/dL 18 - 45 mg/dL [facility] Prealbumin IA [Mass/Vol]on 0 01-17-2024 Prealbumin [Mass/Vol] 21 mg/dL Normal 18-45 [facility] Comment on above: Performed By: #### P INR, 65224-2, 4679-7, FEPR, 6793-4, 2132- 9, 2276-4, 2284-8, 2731-8, 07316-1 #### [facility] ([id number]) [address], [address] [place] [address] Protime & INRon 01-17-2024 INR Coag (PPP) [Relative time] 1.0 {INR} [facility] PT Coag (PPP) [Time] 12.2 s [facility] Reticulocyteson 01-17-2024 Reticulocytes/100 RBC (Bld) 1.1 % 0.4 - 2.2 % [facility] Reticulocytes/100 RBC (Bld)o n 01-17-2024 [facility] RETICULOCYTE COUNT 1.1 % Normal 0.4-2.2 [facility] Comment on above: Performed By: #### P INR, 17546-6, 4679-7, FEPR, 6793-4, 2132- 9, 2276-4, 2284-8, 2731-8, 51742-2 #### [facility] ([id number]) [address], [address] [place] [address] Troponin I, High Sensitivity on 01-17-2024 Troponin I.cardiac High sensitivity method [Mass/Vol] 5 ng/L NINF - 21 ng/L [facility] Troponin I, High Sensitivity 1 Houron 01-17-2024 Troponin I.cardiac High sensitivity method [Mass/Vol] 5 ng/L NINF - 21 ng/L [facility] Troponin I.cardiac High sens itivity method [Mass/Vol]on 01-17-2024 [facility] 1 HOUR TROP I, HIGH SENSITIVITY 5 ng/L Normal <21 [facility] Comment on above: Performed By: #### P INR, 16635-7, 4679-7, FEPR, 6793-4, 2132- 9, 2276-4, 2284-8, 2731-8, 43973-1 #### [facility] ([id number]) [address], [address] [place] [address] [facility] TROPONIN I, HIGH SENSITIVITY 5 ng/L Normal <21 [facility] Comment on above: Performed By: #### P INR, 95195-4, 4679-7, FEPR, 6793-4, 2132- 9, 2276-4, 2284-8, 2731-8, 24051-2 #### [facility] ([id number]) [address], [address] [place] [address] Type and screen(includes ind irect yolanda)on 01-17-2024 ABO O [facility] Rh Nom (Bld) Positive [facility] URINALYSISon 01-17-2024 Bilirubin Ql (U) Negative Normal NEG [facility] Comment on above: Performed By: #### P INR, 72768-8, 4679-7, FEPR, 6793-4, 2132- 9, 2276-4, 2284-8, 2731-8, 02234-3 #### [facility] ([id number]) [address], [address] [place] [address] BLOOD/HGB Trace Abnormal NEG [facility] Comment on above: Performed By: #### P INR, 87273-5, 4679-7, FEPR, 6793-4, 2132- 9, 2276-4, 2284-8, 2731-8, 76926-0 #### [facility] ([id number]) [address], [address] [place] [address] Color (U) YELLOW Normal YELLOW [facility] Comment on above: Performed By: #### P INR, 20971-4, 4679-7, FEPR, 6793-4, 2132- 9, 2276-4, 2284-8, 2731-8, 65885-6 #### [facility] ([id number]) [address], [address] [place] [address] Glucose Ql (U) Negative Normal NEG [facility] Comment on above: Performed By: #### P INR, 39173-0, 4679-7, FEPR, 6793-4, 2132- 9, 2276-4, 2284-8, 2731-8, 84163-1 #### [facility] ([id number]) [address], [address] [place] [address] Ketones Ql (U) Negative Normal NEG [facility] Comment on above: Performed By: #### P INR, 58658-2, 4679-7, FEPR, 6793-4, 2132- 9, 2276-4, 2284-8, 2731-8, 21855-0 #### [facility] ([id number]) [address], [address] [place] [address] Leukocyte esterase Test strip Ql (U) Negative Normal NEG [facility] Comment on above: Performed By: #### P INR, 40940-2, 4679-7, FEPR, 6793-4, 2132- 9, 2276-4, 2284-8, 2731-8, 53951-3 #### [facility] ([id number]) [address], [address] [place] [address] MUCOUS PRESENT Abnormal NONE [facility] Comment on above: Performed By: #### P INR, 95684-9, 4679-7, FEPR, 6793-4, 2132- 9, 2276-4, 2284-8, 2731-8, 95648-5 #### [facility] ([id number]) [address], [address] [place] [address] Nitrite Ql (U) Negative Normal NEG [facility] Comment on above: Performed By: #### P INR, 56779-5, 4679-7, FEPR, 6793-4, 2132- 9, 2276-4, 2284-8, 2731-8, 88957-2 #### [facility] ([id number]) [address], [address] [place] [address] pH (U) 8.5 [pH] Normal 5.0-8.5 [facility] Comment on above: Performed By: #### P INR, 73269-9, 4679-7, FEPR, 6793-4, 2132- 9, 2276-4, 2284-8, 2731-8, 94379-7 #### [facility] ([id number]) [address], [address] [place] [address] Protein Ql (U) Trace Abnormal NEG [facility] Comment on above: Result Comment: Not confirmed. Interpret positive result with caution due to alkaline pH. Suggest quantitative Urine Protein be tested. Performed By: #### P INR, 62014-0, 4679-7, FEPR, 6793-4, 2132-9, 2276-4, 2284-8, 2731-8, 72148-1 #### [facility] ([id number]) [address], [address] [place] [address] R.B.CELLS 7 /hpf High 0-5 [facility] Comment on above: Performed By: #### P INR, 24653-0, 4679-7, FEPR, 6793-4, 2132- 9, 2276-4, 2284-8, 2731-8, 97410-4 #### [facility] ([id number]) [address], [address] [place] [address] Specific gravity (U) [Rel density] 1.018 Normal 1.003-1.03 5 [facility] Comment on above: Performed By: #### P INR, 11730-3, 4679-7, FEPR, 6793-4, 2132- 9, 2276-4, 2284-8, 2731-8, 18128-4 #### [facility] ([id number]) [address], [address] [place] [address] TURBIDITY CLEAR Normal CLEAR [facility] Comment on above: Performed By: #### P INR, 00617-3, 4679-7, FEPR, 6793-4, 2132- 9, 2276-4, 2284-8, 2731-8, 48491-6 #### [facility] ([id number]) [address], [address] [place] [address] Urobilinogen (U) [Mass/Vol] mg/dL Normal <1.1 [facility] Comment on above: Performed By: #### P INR, 02552-9, 4679-7, FEPR, 6793-4, 2132- 9, 2276-4, 2284-8, 2731-8, 70198-7 #### [facility] ([id number]) [address], [address] [place] [address] W.B.CELLS 2 /hpf Normal 0-5 [facility] Comment on above: Performed By: #### P INR, 41991-7, 4679-7, FEPR, 6793-4, 2132- 9, 2276-4, 2284-8, 2731-8, 57347-5 #### [facility] ([id number]) [address], [address] [place] [address] Urinalysison 01-17-2024 Bilirubin Ql (U) Negative Negative^N egative [facility] Color (U) YELLOW YELLOW^YEL LOW [facility] Glucose (U) [Mass/Vol] Negative Negative^N egative mg/dL [facility] Hemoglobin Auto test strip Ql (U) Trace Abnormal Negative^N egative [facility] Interpretation and review of laboratory results Abnormal [facility] Ketones (U) [Mass/Vol] Negative Negative^N egative mg/dL [facility] Leukocyte esterase Auto test strip Ql (U) Negative Negative^N egative [facility] Mucus Ql (Urine sed) PRESENT Abnormal NONE^NONE [facility] Nitrite Auto test strip Ql (U) Negative Negative^N egative [facility] pH (U) 8.5 [pH] 5.0 - 8.5 [facility] Protein (U) [Mass/Vol] Trace Abnormal Negative^N egative mg/dL [facility] Comment on above: Not confirmed. Inter pret positive result with caution due to alkaline pH. Suggest quantitative Urine Protein be tested. RBC Auto (Urine sed) [#/Area] 7 High [facility] Specific gravity Refractometry automated (U) [Rel density] 1.018 1.003 - 1.035 [facility] Turbidity Ql (U) CLEAR CLEAR^LEANDRA R [facility] Urobilinogen Qn (U) NINF [facility] WBC Auto (Urine sed) [#/Area] 2 [facility] VITAMIN B12on 01-17-2024 Cobalamin (Vitamin B12) [Mass/Vol] 242 pg/mL Normal 180-914 [facility] Comment on above: Performed By: #### P INR, 75774-1, 4679-7, FEPR, 6793-4, 2132- 9, 2276-4, 2284-8, 2731-8, 40510-6 #### [facility] ([id number]) [address] [place] [address] Vitamin B12on 01-17-2024 Cobalamin (Vitamin B12) [Mass/Vol] 242 pg/mL 180 - 914 pg/mL [facility] Vitamin D 25 hydroxyon 01-16 Vitamin D+Metabolites [Mass/Vol] 20.4 ng/mL Low 30 - 100 ng/mL [facility] Comment on above: Vitamin D status 25 [place] Vitamin D Deficiency <20 ng/mL Insufficiency 20-29 ng/mL Sufficiency 30-100 ng/mL Toxicity >100 ng/mL NOTE: A pediatric reference range has not been established by the electron beam operator of this kit. The [place] [employer] recommends a Vitamin D level of = or >20ng/mL in infants and children. Vitamin D+Metabolites [Mass/ Vol]on 01-17-2024 Interpretation and review of laboratory results Abnormal [facility] VITAMIN D 25 HYD TOT 20.4 ng/mL Low 30-100 [facility] Comment on above: Result Comment: Vitamin D status 25 [place] Vitamin D Deficiency <20 ng/mL Insufficiency 20-29 ng/mL Sufficiency 30-100 ng/mL Toxicity >100 ng/mL NOTE: A pediatric reference range has not been established by the electron beam operator of this kit. The [place] [employer] recommends a Vitamin D level of = or >20ng/mL in infants and children. Performed By: #### P INR, 39297-1, 4679-7, FEPR, 6793-4, 2132-9, 2276-4, 2284-8, 2731-8, 51129-0 #### [facility] ([id number]) [address], [address] [place] [address] XR CHEST 1 VWon 01-17-2024 XR CHEST 1 VW XR CHEST 1 VW CHEST 1 VIEW HISTORY: Preop COMPARISON: 10/31/2021 FINDINGS: No focal airspace disease, pulmonary edema, pleural effusions, or pneumothorax. Normal cardiomediastinal silhouette. IMPRESSION: No acute cardiopulmonary disease. Finalized by Sylvester Collins MD on 01/17/2024 10:48 PM Normal [facility] XR Chest Single viewon 01-16 CHEST 1 VIEW HISTORY: Preop COMPARISON: 10/31/2021 FINDINGS: No focal airspace disease, pulmonary edema, pleural effusions, or pneumothorax. Normal cardiomediastinal silhouette. IMPRESSION: No acute cardiopulmonary disease. Finalized by Sylvester Collins MD on 01/17/2024 10:48 PM SECTRAPASylvester Cline MD - 01/17/2024 CHEST 1 VIEW HISTORY: Preop COMPARISON: 10/31/2021 FINDINGS: No focal airspace disease, pulmonary edema, pleural effusions, or pneumothorax. Normal cardiomediastinal silhouette. IMPRESSION: No acute cardiopulmonary disease. Finalized by Sylvester Collins MD on 01/17/2024 10:48 PM [facility] Study observation (narrative) [employer] XR Chest Single viewOrdered By: Sylvester Collins on 01-17-2024 [employer] Work Phone: XR FEMUR RT 2+ VIEWSon 01-16 XR FEMUR RT 2+ VIEWS XR FEMUR RT 2+ VIEW S History: Pain. Fracture. Surgical planning study Study: Right Femur Two view study. Comparison: None Impression: Nondisplaced fracture involving the greater trochanter is appreciated. No distal femoral fracture is seen. Study is hampered by patient positioning. Mineralization appears less than expected and at least osteopenic. Continued follow-up with orthopedics is suggested. Finalized by Donavon Chen MD on 01/17/2024 11:42 AM [facility] XR Femur - right 2 Viewson 0 01-17-2024 History: Pain. Fract ure. Surgical planning study Study: Right Femur Two view study. Comparison: None Impression: Nondisplaced fracture involving the greater trochanter is appreciated. No distal femoral fracture is seen. Study is hampered by patient positioning. Mineralization appears less than expected and at least osteopenic. Continued follow-up with orthopedics is suggested. Finalized by Donavon Chen MD on 01/17/2024 11:42 AM [facility] Donavon Chen MD - 01/17/2024 History: Pain. Fracture. Surgical planning study Study: Right Femur Two view study. Comparison: None Impression: Nondisplaced fracture involving the greater trochanter is appreciated. No distal femoral fracture is seen. Study is hampered by patient positioning. Mineralization appears less than expected and at least osteopenic. Continued follow-up with orthopedics is suggested. Finalized by Donavon Chen MD on 01/17/2024 11:42 AM [facility] Radiology Study observation (narrative) [facility] XR Femur - right 2 ViewsOrde red By: Donavon Chen on 01-17-2024 [facility] Work Phone: XR HIP RT 2-3 VIEWS W OR WO PELVISon 01-17-2024 XR HIP RT 2-3 VIEWS W OR WO PELVIS XR HIP RT 2-3 VIEWS W OR WO PELVIS XR HIP RT 2-3 VIEWS W OR WO PELVIS HISTORY: Hip pain, fall, injury COMPARISON: None FINDINGS: AP and lateral views of the right hip with an AP pelvis view obtained. Acute, nondisplaced fracture involving the right greater trochanter. There is no destructive osseous lesion. The joint space is well maintained without degenerative changes. The osseous structures are well mineralized. IMPRESSION: * Acute, nondisplaced fracture involving the right greater trochanter. Extension through the intertrochanteric region not fully excluded on these images. Approved by Resident: Singh Melgar DO on 01/17/2024 3:49 AM I, Sylvester Collins MD have personally reviewed the image(s) and agree with and/or edited the report Finalized by Sylvester Collins MD on 01/17/2024 3:54 AM Normal [facility] XR KNEE RT 1 OR 2 VWSon XR KNEE RT 1 OR 2 VWS XR KNEE RT 1 OR 2 VWS 2 VIEWS RIGHT KNEE HISTORY: Fall, pain COMPARISON: None FINDINGS: Chondrocalcinosis. No acute fracture. No dislocation. IMPRESSION: No acute osseous abnormalities in the right knee. Finalized by Sylvester Collins MD on 01/17/2024 3:49 AM Normal [facility] aPTT Coag (PPP) [Time]on aPTT Coag (Bld) [Time] 30 s Normal [address] [place] [address] Comment on above: Performed By: #### P INR, 87610-2, 4679-7, FEPR, 6793-4, 2132- 9, 2276-4, 2284-8, 2731-8, 55670-7 #### [facility] ([id number]) [address] [place] [address], [address] [place] [address] aPTT Coag (Bld) [Time] 32 s Normal [address] [place] [address] Comment on above: Result Comment: NEW REFERENCE RANGE Performed By: #### [place], [address]-0, PINR, 91632-4, CBCA #### [facility] ([id number]) [address] [facility], [place] [address] Creatinine (Bld) [Mass/Vol]O rdered By: Guillermo Thornton on 08-21-2023 Creatinine [Mass/Vol] 0.8 mg/dL 0.6-1.3 [facility] Comment on above: ER/ESD physician is notified/shown all ISTAT results.Critical values may be confirmed by laboratory testing ifdeemed necessary by ER attending doctor. No Panel InformationOrdered By: Guillermo Thornton on 08-21-2023 Bedside Estimated GFR (eGFR) > 60.0 [facility] Alanine aminotransferase [En zymatic activity/volume] in Serum or PlasmaOrdered By: Guillermo Thornton on 04-24-2023 ALT [Catalytic activity/Vol] 9 U/L 7-52 [facility] Albumin [Mass/volume] in Ser um or Plasma by Bromocresol green (BCG) dye binding methoOrdered By: Guillermo Thornton on 04-24-2023 Albumin BCG dye [Mass/Vol] 4.5 g/dL 3.5-5.7 [facility] Alkaline phosphatase [Enzyma tic activity/volume] in Serum or PlasmaOrdered By: Guillermo Thornton on 04-24-2023 ALP [Catalytic activity/Vol] 46 U/L 34-104 [facility] Aspartate aminotransferase [ Enzymatic activity/volume] in Serum or PlasmaOrdered By: Guillermo Thornton on 04-24-2023 AST [Catalytic activity/Vol] 18 U/L 13-39 [facility] Bilirubin.direct [Mass/volum e] in Serum or PlasmaOrdered By: Guillermo Thornton on 04-24-2023 Bilirubin.direct [Mass/Vol] 0.10 mg/dL 0.03-0.18 [facility] Bilirubin.total [Mass/volume ] in Serum or PlasmaOrdered By: Guillermo Thornton on 04-24-2023 Bilirubin [Mass/Vol] 0.5 mg/dL 0.3-1.0 [facility] Diagnostic impression [Inter pretation] in Specimen NarrativeOrdered By: Guillermo Thornton on 04-24-2023 Diagnostic impression Molgen Jf (Unsp spec) [Interp] See comment . [facility] Comment on above: Positive HCV antibod y screen without the presence of HCVRNA is consistent with a resolved past infection or a falsepositive HCV antibody. Consider repeat testing after onemonth.Performed at: [facility] [place], [place] [id number] Director: Aaron Amin PhD, Phone: [phone] at: [facility] Lab[address] [id number] Director: Hazel Rivera MD, Phone: [phone] Globulin Calc (S) [Mass/Vol] Ordered By: Guillermo Thornton on 04-24-2023 Globulin (S) [Mass/Vol] 2.5 g/dL [facility] Hepatitis C virus IgG Ab [Pr esence] in Serum or Plasma by ImmunoassayOrdered By: Guillermo Thornton on 04-24-2023 HCV IgG IA Ql Reactive Non Reactive [facility] No Panel InformationOrdered By: Guillermo Thornton on 04-24-2023 Hepatitis C RNA Qnt (PCR) Test Info See comment . [facility] Comment on above: The quantitative ran ge of this assay is 15 IU/mL to 100million IU/mL. Hepatitis C RNA Quantitative See comment [facility] Comment on above: HCV Not Detected Protein [Mass/volume] in Ser um or PlasmaOrdered By: Guillermo Thornton on 04-24-2023 Protein [Mass/Vol] 7.0 g/dL 6.4-8.9 [facility] Serum or plasma albumin/glob ulin mass ratioOrdered By: Guillermo Thornton on 04-24-2023 Albumin/Globulin [Mass ratio] 1.8 {ratio} [facility] Serum or plasma non-glucuron idated bilirubin measurement (mass/volume)Ordered By: Guillermo Thornton on 04-24-2023 Bilirubin.indirect [Mass/Vol] 0.4 mg/dL [facility] Alanine aminotransferase [En zymatic activity/volume] in Serum or PlasmaOrdered By: Guillermo Thornton on 03-21-2023 ALT [Catalytic activity/Vol] 10 U/L 7-52 [facility] Albumin [Mass/volume] in Ser um or Plasma by Bromocresol green (BCG) dye binding methoOrdered By: Guillermo Thornton on 03-21-2023 Albumin BCG dye [Mass/Vol] See comment 3.5-5.7 [facility] Comment on above: Specimen hemolyzed, redraw requested Alkaline phosphatase [Enzyma tic activity/volume] in Serum or PlasmaOrdered By: Guillermo Thornton on 03-21-2023 ALP [Catalytic activity/Vol] 44 U/L 34-104 [facility] Anisocytosis LM Ql (Bld)Orde red By: Guillermo Thornton on 03-21-2023 Anisocytosis Ql (Bld) Moderate [facility] Aspartate aminotransferase [ Enzymatic activity/volume] in Serum or PlasmaOrdered By: Guillermo Thornton on 03-21-2023 AST [Catalytic activity/Vol] See comment 13-39 [facility] Comment on above: Specimen hemolyzed, redraw requested Basophils Auto (Bld) [#/Vol] Ordered By: Guillermo Thornton on 03-21-2023 Basophils (Bld) [#/Vol] 0.0 10*3/uL 0.0-0.2 [facility] Basophils/100 WBC Auto (Bld) Ordered By: Guillermo Thornton on 03-21-2023 Basophils/100 WBC (Bld) 0.8 % . [facility] Bilirubin.total [Mass/volume ] in Serum or PlasmaOrdered By: Guillermo Thornton on 03-21-2023 Bilirubin [Mass/Vol] 0.5 mg/dL 0.3-1.0 [facility] Calcium [Mass/volume] in Ser um or PlasmaOrdered By: Guillermo Thornton on 03-21-2023 Calcium [Mass/Vol] 9.5 mg/dL 8.6-10.3 [facility] [place] [facility] Carbon dioxide, total [Moles /volume] in Serum or PlasmaOrdered By: Guillermo Thornton on 03-21-2023 CO2 [Moles/Vol] 25.0 mmol/L 21.0-31.[address] [facility] Chloride [Moles/volume] in S lillian or PlasmaOrdered By: Guillermo Thornton on 03-21-2023 Chloride [Moles/Vol] 103 mmol/L 98-107 [facility] Creatinine [Mass/volume] in Serum or PlasmaOrdered By: Guillermo Thornton on 03-21-2023 Creatinine [Mass/Vol] 0.84 mg/dL 0.70-1.30 [facility] Eosinophils Auto (Bld) [#/Vo l]Ordered By: Guillermo Thornton on 03-21-2023 Eosinophils (Bld) [#/Vol] 0.0 10*3/uL 0.0-0.45 [facility] Eosinophils/100 WBC Auto (Bl d)Ordered By: Guillermo Thornton on 03-21-2023 Eosinophils/100 WBC (Bld) 0.1 % . [facility] Erythrocyte distribution wid th Auto (RBC) [Ratio]Ordered By: Guillermo Thornton on 03-21-2023 Erythrocyte distribution width (RBC) [Ratio] 16.2 % 12.0-14.8 [facility] Globulin Calc (S) [Mass/Vol] Ordered By: Guillermo Thornton on 03-21-2023 Globulin (S) [Mass/Vol] TNP [facility] Comment on above: Test not performed Glucose Glucometer (BldC) [M ass/Vol]Ordered By: Guillermo Thornton on 03-21-2023 Glucose [Mass/Vol] 142 mg/dL [facility] Comment on above: Random Glucose Refer ence Range is dependent on time and content of last meal. Glucose of more than 200 mg/dL in a nonstressed, ambulatory subject supports the diagnosis of Diabetes Mellitus. Glucose [Mass/volume] in Ser um or PlasmaOrdered By: Guillermo Thornton on 03-21-2023 Glucose [Mass/Vol] 127 mg/dL 70-100 [facility] Comment on above: ADA recommended refe rence rangeRandom Glucose Reference Range is dependent on time and content of last meal. Glucose of more than 200 mg/dL in a nonstressed, ambulatory subject supports the diagnosis of Diabetes Mellitus. Hematocrit Auto (Bld) [Volum e fraction]Ordered By: Guillermo Thornton on 03-21-2023 Hematocrit (Bld) [Volume fraction] 43.2 % 38.8-50.0 [facility] Hemoglobin [Mass/volume] in BloodOrdered By: Guillermo Thornton on 03-21-2023 Hemoglobin (Bld) [Mass/Vol] 14.4 g/dL 13.0-17.0 [facility] Hepatitis C virus RNA [log u nits/volume] (viral load) in Serum or Plasma by HAI withOrdered By: Guillermo Thornton on 03-21-2023 HCV RNA HAI+probe [Log units/Vol] Not detected . [facility] INR in Platelet poor plasma by Coagulation assayOrdered By: Guillermo Thornton on 03-21-2023 INR Coag (PPP) [Relative time] 1.0 {INR} [facility] Comment on above: INR Therapeutic Rang e A) Pre- and Peroperative OAT started two weeks before surgery. NOT HIP SURGERY: 1.5 - 2.5 HIP SURGERY: 2 - 3B) Primary and secondary prevention of venous THROMBOSIS: 2 - 3C) Active venous thrombosis, pulmonary embolismand prevention of recurrent venous thrombosis: 2 - 3D) Prevention of arterial thromboembolismincluding patients with mechanical heart valves: 3 - 4.5 Laboratory - CoagulationOrde red By: Guillermo Thornton on 03-21-2023 PT Coag (PPP) [Time] 11.8 s 9.0-12.9 [facility] Leukocytes [#/volume] correc joseluis for nucleated erythrocytes in Blood by Automated counOrdered By: Guillermo Thornton on 03-21-2023 WBC corrected for nucl RBC Auto (Bld) [#/Vol] 5.9 10*3/uL 4.1-10.5 [facility] Lymphocytes Auto (Bld) [#/Vo l]Ordered By: Guillermo Thornton on 03-21-2023 Lymphocytes (Bld) [#/Vol] 1.6 10*3/uL 1.00-4.8 [facility] Lymphocytes/100 WBC Auto (Bl d)Ordered By: Guillermo Thornton on 03-21-2023 Lymphocytes/100 WBC (Bld) 27.3 % . [facility] MCH Auto (RBC) [Entitic mass ]Ordered By: Guillermo Thornton on 03-21-2023 MCH (RBC) [Entitic mass] 27.8 pg 27.5-35.2 [facility] MCHC Auto (RBC) [Mass/Vol]Or dered By: Guillermo Thornton on 03-21-2023 MCHC (RBC) [Mass/Vol] 33.2 g/dL 32.5-35.6 [facility] MCV Auto (RBC) [Entitic vol] Ordered By: Guillermo Thornton on 03-21-2023 MCV (RBC) [Entitic vol] 83.8 fL 83.5-101 [facility] Microcytes LM Ql (Bld)Ordere d By: Guillermo Thornton on 03-21-2023 Microcytes Ql (Bld) Moderate [facility] Monocytes Auto (Bld) [#/Vol] Ordered By: Guillermo Thornton on 03-21-2023 Monocytes (Bld) [#/Vol] 0.5 10*3/uL 0.0-0.8 [facility] Monocytes/100 WBC Auto (Bld) Ordered By: Guillermo Thornton on 03-21-2023 Monocytes/100 WBC (Bld) 7.9 % . [facility] Neutrophils Auto (Bld) [#/Vo l]Ordered By: Guillermo Thornton on 03-21-2023 Neutrophils (Bld) [#/Vol] 3.8 10*3/uL 1.8-7.7 [facility] Neutrophils/100 WBC Auto (Bl d)Ordered By: Guillermo Thornton on 03-21-2023 Neutrophils/100 WBC (Bld) 63.9 % . [facility] No Panel InformationOrdered By: Guillermo Thornton on 03-21-2023 Estimated GFR (CKD-EPI) > 60.0 mL/Min [facility] Hepatitis C RNA (PCR) Interpret See comment . [facility] Comment on above: The quantitative ran ge of this assay is 15 IU/mL to 100million IU/mL.Performed at: [facility] [id number] Director: Hazel Rivera MD, Phone: [phone] Pharmacy Creatinine Clearance (Chem 133.96 [facility] Bedside Glucose Comment Glu2: cleaned meter [facility] Nucleated erythrocytes [Pres ence] in Blood by Automated countOrdered By: Guillermo Thornton on 03-21-2023 Nucleated RBC Auto Ql (Bld) 0.2 /100{WBC} 0-0.5 [facility] Platelet adequacy [Presence] in Blood by Light microscopyOrdered By: Guillermo Thornton on 03-21-2023 Platelets LM Ql (Bld) Decreased Normal [facility] Platelet mean volume Auto (B ld) [Entitic vol]Ordered By: Guillermo Thornton on 03-21-2023 Platelet mean volume (Bld) [Entitic vol] 11.0 fL 6.6-10.1 [facility] Platelet morphology finding [Identifier] in BloodOrdered By: Guillermo Thornton on 03-21-2023 Platelet morphology finding Nom (Bld) N/A [facility] Platelets Auto (Bld) [#/Vol] Ordered By: Guillermo Thornton on 03-21-2023 Platelets (Bld) [#/Vol] 94 10*3/uL 150-450 [facility] Platelets Large [Presence] i n Blood by Light microscopyOrdered By: Guillermo Thornton on 03-21-2023 Platelets Large LM Ql (Bld) Slight [facility] Potassium [Moles/volume] in Serum or PlasmaOrdered By: Guillermo Thornton on 03-21-2023 Potassium [Moles/Vol] See comment 3.5-5.1 [facility] Comment on above: Specimen hemolyzed, redraw requested Protein [Mass/volume] in Ser um or PlasmaOrdered By: Guillermo Thornton on 03-21-2023 Protein [Mass/Vol] See comment 6.4-8.9 [facility] Comment on above: Specimen hemolyzed, redraw requested RBC Auto (Bld) [#/Vol]Ordere d By: Guillermo Thornton on 03-21-2023 RBC (Bld) [#/Vol] 5.16 10*6/uL 3.90-5.60 [facility] RBC morphologyOrdered By: Diana Thornton on 03-21-2023 RBC morphology finding Nom (Bld) N/A [facility] Serum or plasma albumin/glob ulin mass ratioOrdered By: Guillermo Thornton on 03-21-2023 Albumin/Globulin [Mass ratio] TNP [facility] Comment on above: Test not performed Serum or plasma [id number] protein tumor marker measurement (mass/volume)Ordered By: Guillermo Thornton on 03-21-2023 AFP.tumor marker [Mass/Vol] 5.2 ng/mL 0.0-8.4 [facility] Comment on above: [facility] [employer] El ectrochemiluminescence Immunoassay(ECLIA)Values obtained with different assay methods or kits cannotbe used interchangeably. Results cannot be interpreted asabsolute evidence of the presence or absence of malignantdisease.This test is not interpretable in females.Performed at: [facility] [employer] [facility] [id number] [place], [place] [id number] Director: Aaron Amin PhD, Phone: [phone] Serum or plasma anion gap de terminationOrdered By: Guillermo Thornton on 03-21-2023 Anion gap [Moles/Vol] TNP [facility] Comment on above: Test not performed Sodium [Moles/volume] in Ser um or PlasmaOrdered By: Guillermo Thornton on 03-21-2023 Sodium [Moles/Vol] See comment 136-145 [facility] Comment on above: Specimen hemolyzed, redraw requested Urea nitrogen [Mass/volume] in Serum or PlasmaOrdered By: Guillermo Thornton on 03-21-2023 Urea nitrogen [Mass/Vol] 14 mg/dL 03-07 [facility] WBC Auto (Bld) [#/Vol]Ordere d By: Guillermo Thornton on 03-21-2023 WBC (Bld) [#/Vol] 5.9 10*3/uL 4.1-10.5 [facility] Lab - Reference Lab Resultso n 02-05-2021 Lab - Reference Lab Results [id number] TIFF Normal [facility] Patient Handouton 02-04-2021 Patient Handout Custom [facility] [address], [address], [place], [place] CERTIFIED February 04, 2021 Ruth Smith [facility] [place]. [address] Dear Ruth, A physician-patient relationship is established when the physician provides service to a person to address medical needs. Once a physician-patient relationship is established, a person remains a patient until the relationship is terminated. Individuals receiving Pain Management Service may be involuntarily terminated for an inability or unwillingness to comply with their plan of treatment or other policies of the [facility] Pain Management Department. This Letter is to inform you that I am terminating our medical provider-patient relationship due to: Urinalysis Results and Pain Management Agreement void. However, you must find alternative healthcare. Once you have found another provider, please complete an authorization to release medical records that provides us with your new providers information and we will send all medical records to them. Sincerely, Stefan Nash MD [facility] Progress Note - Nurseon 01-13 Progress Note - Nurse patient is dischar ged from Pain Mgmt per Dr. Nash on 02/04/2021 d/t UDS results. Please see chart [Electronically Signed on: 02/04/2021 09:38 EDT] Mabel Treviño [Verified on: 02/04/2021 09:38 EDT] Mabel Treviño [facility] Coding Summaryon 01-29-2021 Coding Summary HTMLBase 64 [id number] BF6FZWPFHRYZIA7WLF8xdHS0 XJbnP3GgjeXy DwwswZHoGY07HIs2SQQ4eHev CCezaV3laXLnR7a7SuObLL77 eC00DZlkKDSiHaX2JxWpktig bWFy O1chThUrlEOoPwt+PHRhYmxl IHdpZHRoPScxMDAlJyBzdHls KN7nPe6lESJxPTGffOkubEYv OiBj v0orNLGoKVxzMT1bjRpbG9Vn nMH3DCKoi1l7Ir40uQW+PHRk VFS2rXnrSBfbf469LqLht9bu IDM3 tQYqYLlqVLO2T87ux0P2IKZp RDGpAER5dLY3aL5gnKfvudbl D2NvfDAcFwT2FAU7gDChbQ1m bGln egcfrJ4sYwm+J17HSZ9YMKQY RD5LEop1W2XtXbbeqTP+PC90 YQLrDR11iWBquNLrn0yccGl5 JzEw UXSrGIG8tPsvMEefz5IfALSq R66thQMvx0S9OGTiqChnmHHf AgEoePO4kG5qIEglikkaw7wq dzsn Cveej2vgxm89cH10J72gTGkw TOQeHNL6WTInRJRhkCstmy1c jW8cDb5+GKcam5whc7znoBa7 IjIw MEEonuWfdKkiWUI3i4VkHy81 V7PceTrgl0QaObv9ry05rASf j0O5cRA4ZVkzKCGxtN6eLAbz ZnQ6 WPDzYfDjsQ98pMJyDZdaXf3k xEnkyZfjNE5fQZZagqrvAWVy yF4uQYOfyBPqqGfgMA4bXCGp bjtm w404XwYyZGQ6XOIriOSoC8Cd aU4pBmXvFQXwXFFkV1WdmVZc GAzdT068QUakEoX4LXLnisXi Y2Fs JPCgeYmnQvG4l6Y5Fu6Nc2Nd wcykNOV3KMusMLS2EqG4CwKf HyR1Q5WlLby8ERAsmSkePH2k J3Bh BQEfsumrvbspeMD1JZIzMGCk nI42iQPuOMyiSp1ur9E6h737 UDViUPRorO06Bf4rbQxmCHOw dCBU eQ1khspmc4blujxsWuRcQPVj CMe0ZXd4AIDkyYzdJvAaJGK1 SqQ5KWF6hIJgqN6anHrivijl dG9w Oyc+U05zxJ0qFSI0MBF7hlvj JVFpsfJqDD95MX41S6UzIdrq dGFibGU+WIWpzkZlbCppKY5w YmFj r1zwu1XyRUnrP9EpAKRfMObr Aue8WNOfYCJ6vMR6fJ2sIYHu NBdgt7A9kUG6E9FqahBiug9m b2xs DAKiDOkmR52nmNInj0D2GJAh aWF8LNVosXpsHcKpqS75Buu+ GNUjzHtwr3NzYdimp5jji1yb dGg9 CpKzQNEazyTxcTorRRO9y9Lr Wz04M94eWSycPZGdWGBuCSBi VDUvxSlqpt1laG3jWu1+PGNv bCB3 pRB1xB7sMNDsRyH3NCvdX208 QmZyrYNvQrvfk9rck9wwwVk5 FzKxZXEmsoTlfAryGTL0l4Mj Lz48 J08nPDbfLAYwZZJnYLKqIWId rWodqw5cbT0xEv5+VG5as1lx yw89lB16eXP+FIYoOCT0dVtv PSdw JVFeeW5eUYseHnW2NKMzLjBb mI71bDIbHMqrBx7qnXsgwJph PR0lEQZzzdabj816QkJcm5bl IDEw cHYwZYjuEGW3C21er8N2TXSf LSDwLQU3zAH9fP8ssNpxbbfj bGVmdDsgdmVydGljYWwtYWxp Z246 IHRvcDsnPlBhdGllbnQgTmFt TIx6H0QqZth2CYUptYkmDV0f cTUpLCdtPo5fnIfziZotMW5k NTBp pclfy169FtUbh2cdFPLrjNCz QNuuUOU6D20ma7J8ZMNpEFIh AEG6lHZ7bS5vkHyeocnvnBFg dDsg reQqeKnvZMoiWUgmF522XYDy tSrvFnBcbcBqDXYyjCW1YO15 IM99yUScz1K2eOP7U2JqLYZz bmct ibbjcWS4KNJkDLElmK84Vv7z bBaqJx7mHTRnZSH6XOUxoEZk H3TmvU5oZrPgTSWwCPLpT2Gl eHQt LRfwV878GWflAgY7TMAvudOu W5JrDROoyXbwTeI4o6M0Tu3K X8K9ML65DD01nJLsr8K2bMJ7 J3Bh UXRgehvupwnhpST0NEYqAUJq qC07Am2njLquEh2aBKMqGAO2 RCSusMTaH5AlwE3lUoIoNLIw MDAw H0CemOQeQDxbZ610MKswKnB2 ALSoddKmG9ZjCSGiiYgaTyG9 b4R8Ky0GPSf4WW74EB57eYTl c3R5 pOJ4Y0OtEBCxgpgneerhuVW6 AVOxZFHfgL59Hg2exBcrRk7n EYLzVOE1BNFxyKApO6NriV9g OiAj BGIbCMPtQ9RloDClBJcqS666 OLljGiD1APPkieVfW0UdLBBw aFshVoP0y3S6Wr8FTBWnKM32 IFR5 tXY3ZO18QU52K5XlBlpipPJp bGU+PHRhYmxlIHdpZHRoPScx SGCjHvLekIypIF6uQc1kURPc LWNv hKtxwRCzMjFik7jaHUNzSQwm KO2hzWanJ3QflLJ1UBArr3l7 Zu41L79aN6VouPP+PGNvbCB3 aWR0 oP8aLlStQgC3OHotB952ToRn mOXvByiop5eva5iutTe9WaD9 TPBaynUheJsuVYT0u5SoMm95 Y29s IHdpZHRoPSIxNSUiIHZhbGln ao7cxM2pOh4+SJZlrYW7qXN4 tS0xDsOrWgQ8NXlnS924HeLi cCIv Bfxqn5vmz2okpJt8XzLdPQLw hrQdaPxkDVH8c1QjBu59Q6Tr oOyik4AwBii8tz34pHEns0B8 bGU9 P0SwYSTjesdkbASymXlzII8j ZSZtssfaBNXslS3rIBUhQ5p5 UhLmMuV5GJpsW9TyodE5TVSa cHQg YMfsCIP7K19qp7R9IMUmOPCg TWG9pIW6jX9spUyczsjlsDNo eBqlssLbeYfuQQhhEDnqF374 IHRv kJjwALDdsZ2fMMFdaARbbIqg KP6rZRRfpxemXkeUNyBIMDBS A07BWGVICVBSWPCEXNj2Y4Vy Pjx0 BUWdmZavML9ghZZpZFlmQf2r sThluWdgZV3jKVKooecuYRSt pT5zGVRjoHPvcQkgKI9uDSPp bjtm x772UzLsJKF9CZBhiVYkD8Vf oP0bFaLoXIBcTFRoU8IsjYFa BHtyJ415SAjmZkI0ROMzszDq Y2Fs QCAypDngGkP0s1J0Yq8eUI7t Vw1yUBD1RM10YW24hNAox3V7 rAG7U9SlVLQcgfetmayirQA7 IDAu ANAyuY06gQLkKZzsKh5ay8K0 f199KDHwIAOnpF02Mm3slBlz DODavCSFwQ5qcrort2fhmdjk IzAw BZLjBYw4UXv6GPDebUayKdYg BKM2SbT1XMQ9iQOfyF5tqDuf mzdbxC8pRil+NTIgWWVhcnM8 L3Rk Bzb0BKBrbPtbRF7usYMtEOpz Rr2ckKjlaAxmZG0xRQDibgdz NBFtjX1wWEBplLZfdPgjPO1q NTBp elial455CeNjSZA1HFVpbRJa P0CpyD9lJkFfOTFvQYXwX2An kFOhVJecB479YTovGxJ4KGBj cnRp X2FqYFIzuFjtBoZ5m3K5Bl3R JUcFHI71NA76cEUtp5T9kNU6 O9KoENOedincdapldPO5LODm MDUw wL91aLNaXNopQj6ma3N6w318 WUPfSMAvdY85Je5xiMvsTYGl pUFJkF2bjacgr1hbbokpKoIz MDAw TOf1BLb6RSSjgFuhYdZkDBH7 LiP8YRV7tYTumO6atMyoxmyq qT6rXni+F5I3F9YgFcwbrRH+ PC90 YAYtWX34cSJbqOBcs0oetNc5 LzThCSPvWCN0bJqhNShzw0Cr FYTrJ53rrXEwb5P8RCJpbKfq cHNl EoUdjRU9hT8pQFawbvwhk3dl twjsFwbur2gvxl67fO10M23z IHdpZHRoPSIzMCUiIHZhbGln bj0i wI7nTk7+UIQsrRL9xIO3oE3e CaXxRnT8ERocU662BeEctCLq Guuuu0lkc9znfKr2DqFpDVCe dmFs wYcoHFU1p4QhVe90T87qGFpw INVeNCErKNShOJTwrXxcsr1u fO5cAd6+XV7vm5wjlu13nU74 dHI+ XLAuTHV1fLswWVhfSORldM0d TKdcHhE1DRLsGmWitK64fACv RNicOh9llWzmxBvuNU2aFWLn bjtm e601UqMbw8ltSUYrwKVmISll YWU8C52vv4Q6XGEmDQXlRUI8 eLX5vU4aqPylmmredDTpkAiy dmVy wTnoYRlkWBfaT226FEKyjByi FvNwqRZtR1hwdkEDHU5sRcxe dGQ+IHAtMBJ4hQepLDeiYZAy aW5n WNTwX8x3LrGhWkP1TYwnP8Xs zuQ7LSAxzCSvIVGjjQTTsZ8a pjzpm9xwwwfhBlSlUUUnUCg7 ZXh0 XNPauDhoIhViOXE7TdM7CGU8 tSVbvX1wkMlrfbhobK3vGun+ RklOOjwvdGQ+POBnWOV5sMeo PSdw GIHfbA8nIFBxM7i8NkMaDtL3 GDxmC5WjuuQ7PYTiaTWeJLJb iXKTcU8abnpqr3xakcxgKlOu MDAw UKt9XYz5COEgaXsoEzYcBNZ8 GrN9OJY8jNGnmB0rgTuznyeg mP2hUnk+TVJOOjwvdGQ+PHRk IHN0 mVfkODnkHCIxgX5rSBTcQ7m0 EwKyFrZ0YXclI3LcakR2NMJq jEOtYYEmkWGZxC6wbhbus6aj cjog JqFpDEHqWDz8LXm8WBAfdOrw UoZxTGJ3KqR6WWQ0pKHwgC2h oHzobftzmR1cBly+FMA2OCK8 PC90 EK88Z4DfIgtyyDEfoAJ+PHRh YmxlIHdpZHRoPScxMDAlJyBz kNufCV8lEt3cHHSxHLDygLao cHNl OiB (more content not included)... [facility] Progress Note - Provideron 0 01-29-2021 Progress Note - Provider [id number]#[email or web address] TIFF [facility] Progress Note - Nurseon 05-1 Progress Note - Nurse Patient called in today for refill of oxycodone. Refill sent to Nancy Johnson. Oarrs reviewed [Electronically Signed on: 12/22/2020 10:17 EDT] Azul Espitia [Verified on: 12/22/2020 10:17 EDT] Azul Espitia [facility] Progress Note - Nurseon 11-12 Progress Note - Nurse PATIENT CALLED IN REFILL REQUEST. OARRS WAS REVIEWED. PATIENT IS COMPLIANT. REFILL REQUEST WAS SENT TO NANCY JOHNSON FOR HER APPROVAL. FOLLOW UP IS IN PROGRESS. [Electronically Signed on: 11/24/2020 08:47 EDT] Karolina Walker [Verified on: 11/24/2020 08:47 EDT] Karolina Walker [facility] Lab - Reference Lab Resultso n 11-19-2020 Lab - Reference Lab Results [id number] TIFF [facility] COVID-19 SOFIAon 10-28-2020 COVID-19 ROMA Negative Negative [facility] Comment on above: This is a duplicate [place] SARS Antigen (SHANELL) result to be used for statistical tracking purpose only. Otheron 10-28-2020 SARS Antigen (LFIA) [facility] Progress Note - Nurseon 10-12 Progress Note - Nurse PATIENT CALLED IN REFILL REQUEST. OARRS WAS REVIEWED. PATIENT IS COMPLIANT. REFILL REQUEST WAS SENT TO NANCY JOHNSON FOR HER APPROVAL. FOLLOW UP IS IN PROGRESS. [Electronically Signed on: 10/27/2020 11:51 EDT] Karolina Walker [Verified on: 10/27/2020 11:51 EDT] Aaron Karolnia [facility] Coding Summaryon 10-22-2020 Coding Summary HTMLBase 64 EarmahglYYc6yMo+PGhlYWQ+ BG8IAVGsW12ieRHwdM4OS2gW PG1BICYFMEXBXH7CVT0efIG2 JJhdW1AdxlEo VvoqxQFaXL67IRn3XVT9nMal PJhlxK4cfQAdG1d5GcMaFJ45 uV95DZngSJDcOjQ2BxBspoce bWFy R2thWyLsmMZuLjq+PHRhYmxl IHdpZHRoPScxMDAlJyBzdHls TF6gXf2tQUWkHJLxxLfkaFQs OiBj w0xrSQFhZMrxQP3tvJboJ5Yf vBY1VTHre3t0Mj73eGV+PHRk ZOV9qQxbZWtae870BzZue6jj IDM3 cIMyFNucYHN4H77fr6W6QWZq CZNePHW0nXS6mF8eyJwikrpa G1GkmVRcOsM4ESS4vANqwV9t bGln rubtqS0uTqg+T53GQA6ZFNQK SF0MZnt7T3SgWroolAH+PC90 CFGkNX55hAFfrLAfs1iduIc6 JzEw VMYpGDK2oRiuHJycj1UbQOPb B63keZNcg6X9TXLikZqfgYYd YzWyhPQ7bW1pMRjrwbncm6ui dzsn Rikui7xeoy19oC63R58bKKks UIQpIGD4CHHiKXKyiFwrcw4y iV9nOn5+TLytj6mkt6aceYo5 IjIw XWHpywPlgShqNNA4k1ZiWp92 M7UklHimm1BuAkl1is18oJNv x9M1dJK9ANpqYYDutO9xENvv ZnQ6 SYGcPqWnnA57yQBuMHsgXb0m cKzteIrsKY6zOKQvwzzoOFYp qM5jGQEpnOPgqRdhYP5oAGEw bjtm l217DnPmFDA5BXAdkAYgS1Cv jX9hBpGnUOSwDPWvB2JxkCTq YKqcF728HNvqYoQ6HCQvrhJh Y2Fs LHPaqDcqMyH9h0H4Fx9Kj0Xj yataPFM1XFbsPRJgRiFpYxJc XvK5A4YsCsx2LZXoaMotQG6i J3Bh IFVhfcailxkwnYI8TSDlDDTx eA63wMXwGToqWw2fo2Z0j761 VDYtJUEufB81Xc6ocSzlPUNa dCBU gN9ybregd5lnuqpvKjQzXCZb DFw7ERt6VZHhmWggKoKsKGI2 FhZ5OAH4aQFsiC6kpMsaglua dG9w Oyc+L67qlW2qDUT7OUS3feyj NFMhvrRcWZ78IF68P0XfDywa dGFibGU+KYYcumXhvSsbAQ7w YmFj e6gop4InBDadL1LiNFMtQLxn Ram0LBNkTGX5tJM4rU8tCIFm ESkkr2R3sFK6X5JbjsFoek2w b2xs WKQuUJmvA64mpKEza1P3XTJl gXB8SWSsiXknAmAczS79Dcf+ KRLomWgjb1YoRbgzz3mun8bc dGg9 FcHoCEEdmjCbaGajOCU0w7Le Fw72Q01tTXslTEJiPTCvAMRa YBYmpEhvup7kpT5vIt9+PGNv bCB3 xED6vX6zQOGqQgG9JJyzW287 XnGdwTCrCmcmt4hxo7hamVo2 EtBnBFYaszYcqMbfMCY8l5Ol Lz48 X24tBTzrBZPlQLKeKNUiNYNq vFwgjz2evG4tCe4+TB6fj4nh io06iE78yIG+YWJvRWI3kXsx PSdw GXTbvE5dZIuoZyS0JDXfAfGa nA03eIWoTCtwYt9bwLdneEgf XX2oJOAnzqhxi989DkSrj4no IDEw nZEeGRxuZGB2D51ov2F6ZKCg GGRfTPL3iKT1pB7huWcnibki bGVmdDsgdmVydGljYWwtYWxp Z246 IHRvcDsnPlBhdGllbnQgTmFt KKm7B9GeZli7PYUgoMfzYT2a eTWyLQtyHm9vfXzqmCqaHO4v NTBp dcsvl256QjRfy7ckYDYhaAFb GUzePMA1M86tg1M4YKRlAORv VKH7sYM2iA9gaSujsriesKGu dDsg ecCnkNoaZNdoCJebL149NQUh fHzzPdMuimRpVDAesGR1LJ88 YW85fZZgd0G1xGD4A8AaHAQl bmct lixprUS3XXKrLLZhzA79Ua8v xWziFs2qHSNmKTO5NYWpmRBx R5RdvD0yLrCwJLMhWGOfI0Cd eHQt VVqpJ032IGpvVsC6PBIufpGp R2EsTFFooUgeTkY5f7U6Iy7N V4K6WE76LM10bOCok4M3qUD9 J3Bh DTQoncxolsiqsNE0WRRgVPLl jK15Ia9ejCdqHf5uBQKuJRL8 AOIidKNiQ8SkpE5dCqFoYJJb MDAw L8KuqVUtMGeqY777TJygPsY9 CSXwwcEyU2GzLBGtiAjqCmQ1 d7S3Eg8XWCh4BX55NH11sIQq c3R5 iXS9O6YwEIBgxhalnvoqnRI7 YEMlNHWehW36Qf9xcKsaKi3z LPDxLZE4ZIZhbVEiK2LfkU0o OiAj IVOeNIPyL2StsSPtBXbhA885 IYjyUbX5DZFqmiFvJ9BcUTUj cZriOyB0z4R5Pe5UVWSnKS10 IFR5 eXU9YZ87JB06N7EsUemkvUHu bGU+PHRhYmxlIHdpZHRoPScx VXEmLtZxaYbaGB6dQn5rEWGm LWNv hVqlfNKlEvFql8dcUHFvJTyl RR6reYsbU1UwqXG8QQPat8j2 Zu23N10pD3PnnAK+PGNvbCB3 aWR0 gO2dVkAfLhR6CJtiU086AuQm fJIhIijgn3hpn8ycbWr5JfI9 BAKxxhRebVhyWEV2m4DaGx52 Y29s IHdpZHRoPSIxNSUiIHZhbGln wt0rdV0qXs4+ERAgdTO0lAY0 vK0xOeJfChR2NKifN071JcEq cCIv Pbgkc6aax8rjoRd9XdZlNTNx eyFsgQulPLE6x3FnIr98A8Tw uNqsg0RpNlu3wd49fYFsd3Q4 bGU9 P8XcXRZrffeqaOHjoHcdIQ3n JQKbcaaxOKAjnN4fARGbD7k7 PvMmGyV3WCkkD3FqboX3TXZf cHQg DKomSKU1E81zj1X9JPPwBKCr FCM4oYW7sC6tqMphwrrehHUs rExcslHcpMzlXEzcXPndE621 IHRv sQdrDYYqbN7gGVRorHElzFfo SN1wKQGagdntMejMIhNQJKQY A45OWPRXJWJKZRUDRKl5M5Kb Pjx0 OSIvhIkbEK9ysWCrPHbdCw8t mOwqtIfgWY1xPAYtnhhdBHTl jJ3eJBLuyKEaiSofAC8vUCPt bjtm u145BmXvPHS1HMRtxLGyU5Dv vT8rFwZrMXQaBCTqG9YwjWPj GIpkW549WHeiLaH3JANqueZt Y2Fs IQTylWtnPrB2g9A7Bn6jTF5r Qt0hQAO9HA84XI91gLMwg9D8 yNC2Q0UqXVTpzlbfgioljNH4 IDAu BAHyxB26rWJvKDauOd0hl2D3 c316RUYgZIAgsT51Ct8ijTtt WJGzrJNChB8deytuv6lxdwyq IzAw VTIbTKl5GKr6DUHadRnaLoWm KVZ2HgX5SVU1vRFisP9fqEph uekwqU9hWjy+NTIgWWVhcnM8 L3Rk Vaz4CDImfYwtCN6ygTAzXMfj Is7kqTrimUflPC4nUSRhfufu XGQoeK8jPDOhkVRiwYxlNV7v NTBp qrtzq447ElTkIAX8UKKssJMu C5LvpR1nTuAhNHTlYBAjT2Vk sTCcTRqeS997KJypHuI4STVp cnRp W3YzIMZsiNgcSyZ2d2A0Gw8K HHqLUT62SM89aUDyo0B5oQN4 P9UkHQBagbhneizmgCJ0OLDr MDUw tL00zYYiNBepZb7kz3N1i563 CCAtLLWiaM96Pv4xuIrhUKWw wNNSyU4kvbgnb3lmsudgWhQi MDAw UNf4MIx6WYVoaPbkNoRlXTW7 WzD2VMD3hDHwmY8peTjvygsv fU9dJho+C7T0R7LpQexgeUC+ PC90 VIAwFS30dRWqbZJrw6ardCx0 InAfVUFxFDQ4aPocCHrvk4Lj XXSnA13kaHZbf6I9FCFlcQux cHNl UwCzzYI9kM5sYXsuaarmw4ha jhbpBuxyd5iltl35cU84B14f IHdpZHRoPSIzMCUiIHZhbGln bj0i iX4jLi7+FLXdkMY6zYL9qB6c KtWwFeZ4XWmaC118LxPstANq Byepe6fom5sfnUz9PxOvBFTz dmFs aHaoBUE1b9WiGb59B87nPNhj SXFxUCIqLAScROPprNeebd8h rU3zXl6+KT1dq9mgdl98sK42 dHI+ ALBoSKF5cDtjCGxiGFXivD0o YPtmGrD6QRPuDnBnvM22hKLd CUdcDz5ioVuvoAjdFO1cTQPq bjtm q842AgSxm7rqSZZxjYZvHFoj GHR8E09tp2T5XEMlKIIvREB1 lQG5vZ3jhHjhseeflZPggJne dmVy pPdbWDyiHOyxI877DJTyrZrr BoCeuIYeA2jwgjGSBJ5sRweg dGQ+VXXaEKS8yZeqXKtaDTHq aW5n IJAbN4r6RyLdQcE0XJtlT2Kh oeF4HUSjgJBuHEVrcHEEzL5r epvxf4mznjwfFdFuSTGyEGw5 ZXh0 PGZvwNveFpUlYMD9IwF7RME1 lZLslS0foQjnnnfswA2bRdx+ RklOOjwvdGQ+DKDxMYL7gDpq PSdw YWTsvJ8eHHPsR9e2BkXfDhU1 WRcxK2HrugN7UCJztSXwGQQv gNNXgY5mhtwug9hbgblfAmTm MDAw EVr7VHb5PDRwvNhrNvSaIVP9 IxQ3RTM1mCMbzO3lrNvmxwsn bJ8mSxw+TVJOOjwvdGQ+PHRk IHN0 xHveOAdqQZNonV3eMCTlT3g6 XvNlJbM3ATatA8YzbvJ0PMBu jHFxUWAckITBzM6toybia5im cjog LhLoCLLrSWk8HGf3ZFWyyJdm KePsRVY5BqK9CKS8gITbaH1e oOzemxhtdA4mXwd+DME5WYD3 PC90 PN48U0XgJiedmZAghIM+PHRh YmxlIHdpZHRoPScxMDAlJyBz cVctIH5eFi7hULKvXHTuoXbr cHNl OiB (more content not included)... [facility] Controlled Substances Agreem entson 10-22-2020 Controlled Substances Agreements [id number]#[email or web address] [facility] [id number]#1.00OTG [facility] Progress Note - Provideron 0 10-22-2020 Progress Note - Provider [id number]#[email or web address] [facility] Progress Note - Nurseon 09-14 Progress Note - Nurse Patient called requesting a refill on Percocet. OARRS is reviewed. Patient is compliant. Next appointment is scheduled. Order is sent to Nancy Johnson NP for approval and signature. [Electronically Signed on: 09/29/2020 14:18 EST] Mabel Treviño [Verified on: 09/29/2020 14:18 EST] Treviño Mabel [facility] Progress Note - Nurseon 12-0 Progress Note - Nurse patient called in refill request for oxycodone and trazodone. OARRS was reviewed. Patient is compliant. Refill request has been sent to Nancy Johnson for her approval. Follow up is in progress. [Electronically Signed on: 07/21/2020 13:41 EST] Karolina Walker [Verified on: 07/21/2020 13:41 EST] Karolina Walker [facility] Coding Summaryon 06-30-2020 Coding Summary CODING DATE: 020 [facility] STATUS: Home PAYOR: Medicare ADMIT DX: REASON FOR VISIT DX: M54.5 Low back pain M79.606 Pain in leg, unspecified FINAL DX: PRINCIPAL: M54.5 Low back pain SECONDARY: M47.816 Spondylosis without myelopathy or radiculopathy, lumbar region G89.4 Chronic pain syndrome M62.830 Muscle spasm of back PYMT PROC APC STAT DESCRIPTION DOCTOR NAME DATE NOTE: The code number assigned matches the documented diagnosis and / or procedure in the patient's chart. However, the narrative phrase printed from the coding software may appear abbreviated, or result in slightly different terminology. Coded By: Chanelle Gillis Date Saved: 06/30/2020 12:44 pm [facility] Progress Note - Provideron 1 08-26-2019 Progress Note - Provider [id number] TIFF [facility] Progress Note - Nurseon - Progress Note - Nurse pt calls for a ref ill on oxycodone. oarrs is reviewed and patient is complaint. order is sent to nancy johnson NP for approval. [Electronically Signed on: 06/02/2020 10:26 EDT] Mabel Treviño [Verified on: 06/02/2020 10:26 EDT] Mabel Treviño Normal [facility] COVID-19 PCRon 05-15-2020 SARS-CoV-2, HAI Not Detected Normal Not Detected [facility] Comment on above: Result Comment: This nucleic acid amplification test was developed and its performance characteristics determined by [employer]. Nucleic acid amplification tests include PCR and TMA. This test has not been FDA cleared or approved. This test has been authorized by FDA under an Emergency Use Authorization (EUA). This test is only authorized for the duration of time the declaration that circumstances exist justifying the authorization of the emergency use of in vitro diagnostic tests for detection of SARS-CoV-2 virus and/or diagnosis of COVID-19 infection under section 564(b)(1) of the Act, 21 U.S.C. 360bbb-3(b) (1), unless the authorization is terminated or revoked sooner. When diagnostic testing is negative, the possibility of a false negative result should be considered in the context of a patient's recent exposures and the presence of clinical signs and symptoms consistent with COVID-19. An individual without symptoms of COVID-19 and who is not shedding SARS-CoV-2 virus would expect to have a negative (not detected) result in this assay. Performed By: #### C VDPCR #### [facility] [address] [place], [place] [id number] Paige Rider XR CHEST 2 Von 05-14-2020 XR CHEST 2 V XR CHEST 2 V 05/13/2020 4:59 PM EDT Indication: Bronchitis Technique: Routine radiographs of the chest were obtained. Comparison: None. Findings: The lungs are adequately inflated. No acute rib fractures, pneumothorax or mediastinal shift. No consolidation, edema, or effusion. Heart is normal in size and contour. Impression: No acute findings. Electronically authenticated by: ANSELMO GARCÍA Date: 2020-05-14 03:55 Normal [facility] Progress Note - Nurseon 04-14 Progress Note - Nurse Called for refill of oxycodone. Oarrs reviewed and patient is compliant. Follow up in place. Order proposed to Millie Johnson CNP for review. [Electronically Signed on: 04/28/2020 09:41 EDT] Uzma Arriola RN [Verified on: 04/28/2020 09:41 EDT] Uzma Arriola RN [facility] Progress Note - Nurseon 03-16 Progress Note - Nurse Called for refill of gabapentin. Oarrs reviewed and patient is compliant. Follow up in place. Order proposed to Millie Johnson CNP for review. [Electronically Signed on: 04/13/2020 10:11 EDT] Uzma Arriola RN [Verified on: 04/13/2020 10:11 EDT] Uzma Arriola RN [facility] Progress Note - Nurseon - Progress Note - Nurse Called for refill of oxycodone. Oarrs reviewed and patient is compliant. Follow up in place. Order proposed to Millie Johnson CNP for review. [Electronically Signed on: 03/31/2020 11:24 EDT] Uzma Arriola RN [Verified on: 03/31/2020 11:24 EDT] Uzma Arriola RN [facility] Progress Note - Provideron 0 03-16-2020 Progress Note - Provider [id number] TIFF [facility] Coding Summaryon 03-12-2020 Coding Summary CODING DATE: 020 [facility] STATUS: Home PAYOR: Medicare ADMIT DX: REASON FOR VISIT DX: M54.5 Low back pain FINAL DX: PRINCIPAL: M54.5 Low back pain SECONDARY: M47.816 Spondylosis without myelopathy or radiculopathy, lumbar region G89.4 Chronic pain syndrome Z79.891 detention (current) use of opiate analgesic PYMT PROC APC STAT DESCRIPTION DOCTOR NAME DATE NOTE: The code number assigned matches the documented diagnosis and / or procedure in the patient's chart. However, the narrative phrase printed from the coding software may appear abbreviated, or result in slightly different terminology. Coded By: Chanelle Gillis Date Saved: 03/12/2020 01:20 pm [facility] Progress Note - Nurseon 02-12 Progress Note - Nurse pt calls states he needs a refill on oxycodone. oarrs is reviewed and pt is complaint. order is sent to nancy johnson Np for approval and signature, [Electronically Signed on: 03/03/2020 13:17 EDT] Mabel Treviño [Verified on: 03/03/2020 13:17 EDT] Mabel Treviño [facility] Basic Metabolic Panlon 04-27 Anion gap 3 molar conc 10 mmol/L Normal 9-18 [facility] Comment on above: Performed By: #### C BCDIF, BMP, MG1, PHOS ####[place] [phone] Calcium mass conc 8.1 mg/dL Low 8.5-10.5 [facility] Comment on above: Performed By: #### C BCDIF, BMP, MG1, PHOS ####[place] [phone] Chloride molar conc 102 mmol/L Normal 98-110 [facility] Comment on above: Performed By: #### C BCDIF, BMP, MG1, PHOS ####[place] [phone] CO2 molar conc 25 mmol/L Normal 23-32 [facility] Comment on above: Performed By: #### C BCDIF, BMP, MG1, PHOS ####[place] [phone] Creatinine mass conc 0.69 mg/dL Low 0.70-1.40 [facility] Comment on above: Performed By: #### C BCDIF, BMP, MG1, PHOS ####[place] [phone] eGFR- Amer. >60 Normal >60 [facility] Comment on above: Performed By: #### C BCDIF, BMP, MG1, PHOS ####[place] [phone] GFR/1.73 sq M predicted among non-blacks MDRD vol rate/area (S/P/Bld) mL/min/{1.73_m2} Normal >60 [facility] Comment on above: Performed By: #### C BCDIF, BMP, MG1, PHOS ####[place] [phone] Glucose mass conc 161 mg/dL High 65-100 [facility] Comment on above: Performed By: #### C BCDIF, BMP, MG1, PHOS ####[place] [id number] [place] [phone] Potassium molar conc 3.9 mmol/L Normal 3.5-5.0 [facility] Comment on above: Performed By: #### C BCDIF, BMP, MG1, PHOS ####[place] [phone] Sodium molar conc 137 mmol/L Normal 135-146 [facility] Comment on above: Performed By: #### C BCDIF, BMP, MG1, PHOS ####[place] [id number] [place] [phone] Urea nitrogen mass conc 6 mg/dL Low 10-25 [facility] Comment on above: Performed By: #### C BCDIF, BMP, MG1, PHOS ####[place] [phone] CASE MANAGEMon 04-27-2018 CASE MANAGEM HNO ID: [id number]: Tamra (Elias) Fei, RNService: Care ManagementAuthor Type: Registered NurseType: Care Mgt Progress NoteFiled: 04/27/2018 2:58 PMNote Text:CARE MANAGEMENT PROGRESS NOTESERVICE DATE: 04/27/2018SERVICE TIME: 2:53 PM LOS: 4 daysPt is post op Colectomy.Pt resides with his grandparents.Pt noted ambulating in the bonner with no difficulty.No skilled dc needs are identified.SIGNATURE: Tamra Enamorado RN,BSN PATIENT NAME: Ruth SmithDATE: April 27, 2018 : 2:53 PM PAGER/CONTACT #: [phone] Normal [facility] CBC and Differentialon 04-27 Abs Baso <0.03 Normal <0.11 [facility] Comment on above: Performed By: #### C BCDIF, BMP, MG1, PHOS ####[place] [phone] Abs [place] 0.52 k/uL Normal <0.87 [facility] Comment on above: Performed By: #### C BCDIF, BMP, MG1, PHOS ####[place] [address] Abs Neut 3.90 k/uL Normal 1.45-7.50 [facility] Comment on above: Performed By: #### C BCDIF, BMP, MG1, PHOS ####[place] [address] Basophils/100 WBC Auto (Bld) 0.2 % Normal [facility] Comment on above: Performed By: #### C BCDIF, BMP, MG1, PHOS ####[place] [address] DTYPE Auto Diff Normal [facility] Comment on above: Performed By: #### C BCDIF, BMP, MG1, PHOS ####[place] [address] Eosinophils Auto #/vol (Bld) 10*3/uL Normal <0.46 [facility] Comment on above: Performed By: #### C BCDIF, BMP, MG1, PHOS ####[place] [address] Eosinophils/100 WBC Auto (Bld) 0.0 % Normal [facility] Comment on above: Performed By: #### C BCDIF, BMP, MG1, PHOS ####[place] [address] Erythrocyte distribution width Auto Ratio (RBC) 14.7 % Normal 11.5-15.0 [facility] Comment on above: Performed By: #### C BCDIF, BMP, MG1, PHOS ####[place] [address] Hematocrit Auto Volume Fraction (Bld) 34.6 % Low 39.0-51.0 [facility] Comment on above: Performed By: #### C BCDIF, BMP, MG1, PHOS ####[place] [address] Hemoglobin mass conc (Bld) 11.4 g/dL Low 13.0-17.0 [facility] Comment on above: Performed By: #### C BCDIF, BMP, MG1, PHOS ####[place] [address] Lymphocytes Auto #/vol (Bld) 1.57 10*3/uL Normal 1.00-4.00 [facility] Comment on above: Performed By: #### C BCDIF, BMP, MG1, PHOS ####[place] [address] Lymphocytes/100 WBC Auto (Bld) 26.2 % Normal [facility] Comment on above: Performed By: #### C BCDIF, BMP, MG1, PHOS ####[place] [address] MCH Auto Entitic mass (RBC) 28.9 pG Normal 26.0-34.0 [facility] Comment on above: Performed By: #### C BCDIF, BMP, MG1, PHOS ####[place] [address] MCHC Auto mass conc (RBC) 32.9 g/dL Normal 30.5-36.0 [facility] Comment on above: Performed By: #### C BCDIF, BMP, MG1, PHOS ####[place] [id number] MCV Auto Entitic volume (RBC) 87.8 fL Normal 80.0-100.0 [facility] Comment on above: Performed By: #### C BCDIF, BMP, MG1, PHOS ####[place] [phone] Monocytes/100 WBC Auto (Bld) 8.7 % Normal [facility] Comment on above: Performed By: #### C BCDIF, BMP, MG1, PHOS ####[place] [phone] Neutrophils/100 WBC Auto (Bld) 64.9 % Normal [facility] Comment on above: Performed By: #### C BCDIF, BMP, MG1, PHOS ####[place] [phone] Platelet mean volume Auto Entitic volume (Bld) 12.5 fL Normal 9.0-12.7 [facility] Comment on above: Performed By: #### C BCDIF, BMP, MG1, PHOS ####[place] [phone] Platelets Auto #/vol (Bld) 77 10*3/uL Low 150-400 [facility] Comment on above: Result Comment: No c lot detected.Sample checked for a clot. Performed By: #### C BCDIF, BMP, MG1, PHOS ####[place] [phone] RBC Auto #/vol (Bld) 3.94 10*6/uL Low 4.20-6.00 [facility] Comment on above: Performed By: #### C BCDIF, BMP, MG1, PHOS ####[place] [phone] WBC Auto #/vol (Bld) 6.00 10*3/uL Normal 3.70-11.00 [facility] Comment on above: Performed By: #### C BCDIF, BMP, MG1, PHOS ####[place] [phone] CNDSon 04-27-2018 CNDS HNO ID: [id number]: Stoney (Alexis) Shruthiervice: ColorectalAuthor Type: ResidentType: Discharge SummariesFiled: 04/27/2018 5:08 PMNote Text:DISCHARGE SUMMARYPATIENT NAME: Ruth Smith ADMISSION DATE: 04/23/2018MRN: [id number] DISCHARGE DATE: 04/27/2018Attending: Des AragonagneReason for Hospitalization: elective sigmoid colectomyPrincipal Problem: Colon cancer (HCC)Active Problems: Postoperative stateResolved Problems: * No resolved hospital problems. *Operations During Hospitalization: laparoscopic hand assisted sigmoidcolectomy, with side to side stapled colorectal anastomosisBrief history:Miguel Angel is a 47-year-old gentleman who had a colonoscopy showing adescending colon flat and sessile polyp that was removed. Pathologyshowed cancer within the polyp.The final pathology did say the cauterizedmargin was negative but there was no stalk and no clear distance of somenormal margin. The standard of care for cancer and a flat polyp and [id number] is segmental resection. Patient has a history of diabetes andsignificant history of myocardial infarction in his family. Cardiologyclearance was obtained.Hospital Course:The patient was admitted to the hospital with the above history. Thepatient was transferred to the OR and a laparoscopic hand assisted sigmoidcolectomy, with side to side stapled colorectal anastomosis was performed.Patient tolerated the procedure well and was transferred to [facility] floor. During the post op course patient developed nocomplications. Daily labs were ordered and reviewed to follow up progressof patients medical condition, these were unremarkable. Heparin wasordered for prophylaxis of deep vein thrombosis. Diet was graduallyadvanced, with limited sips on POD 1, clear liquids on POD 2, GIS on POD3. After toleration of a full diet and adequate pain control, patient wasdischarged in a stable condition on POD 4.Surgical pathology:1. Omentum, omentectomy (A) - Benign fibroadipose tissue.2. Left colon, resection (B) - Tattoo ink and focal foreign body giantcell reaction consistent with previous biopsy site, negative for residualinvasive adenocarcinoma (see synoptic report).- One tubular adenoma (see comment).- Thirteen lymph nodes, negative for malignancy (0/13).3. The margins are negative for dysplasia.Labs and Procedures Pending at Discharge: No pending results.Patient Condition at Discharge: GoodDischarge Disposition: Home/Self CareInformation Provided to Patient:Patient given copy of Discharge InstructionsDischarge Medications:Current Discharge Medication ListSTART taking these medicationstamsulosin ER (FLOMAX) 0.4 mgTake 0.4 mg by mouth once daily.Qty: 30 capsule Refills: 0CONTINUE these medications which have NOT CHANGEDVITAMIN D 1,000 unit capRefills: 0oxyCODONE IR (ROXICODONE) 1 tabletTake 1 tablet by mouth three times daily as needed.Earliest Fill Date: 03/21/18Refills: 0DHEA 50 mg tabRefills: 0multivitamin 1 tabletTake 1 tablet by mouth once daily.Associated Diagnoses:Malignant neoplasm of descending colon (HCC)metoprolol succinate ER (TOPROL XL) 50 mgTake 50 mg by mouth twice daily.Associated Diagnoses:Malignant neoplasm of descending colon (HCC)meloxicam (MOBIC) 15 mgTake 15 mg by mouth as needed.Associated Diagnoses:Malignant neoplasm of descending colon (HCC)insulin glargine,hum.rec.anlog (LANTUS SUBCUTANEOUS) 40 UnitsInject 40 Units subcutaneously.Associate d Diagnoses:Malignant neoplasm of descending colon (HCC)linagliptin-metFORM IN (JENTADUETO) 2.5-1,000 mg tabTake by mouth.Associated Diagnoses:Malignant neoplasm of descending colon (HCC)hydroCHLOROthiazide (HYDRODIURIL, ESIDRIX) 25 mgTake 25 mg by mouth once daily.Associated Diagnoses:Malignant neoplasm of descending colon (HCC)Fenofibrate (LOFIBRA) 160 mgTake 160 mg by mouth once daily.Associated Diagnoses:Malignant neoplasm of descending colon (HCC)citalopram (CeleXA) 20 mgTake 20 mg by mouth once daily.Associated Diagnoses:Malignant neoplasm of descending colon (HCC)pantoprazole DR (PROTONIX) 40 mgTake 40 mg by mouth once daily.Associated Diagnoses:Malignant neoplasm of descending colon (HCC)gabapentin (NEURONTIN) 300 mgTake 300 mg by mouth three times daily.Associated Diagnoses:Malignant neoplasm of descending colon (HCC)traZODone (DESYREL) 50 mgTake 50 mg by mouth daily at bedtime.Associated Diagnoses:Malignant neoplasm of descending colon (HCC)loperamide (IMODIUM) 2 mgTake 2 mg by mouth four times daily as needed.Associated Diagnoses:Malignant neoplasm of descending colon (HCC)insulin lispro (HUMALOG KWIKPEN INSULIN SUBCUTANEOUS) 18 UnitsInject 18 Units subcutaneously.Associate d Diagnoses:Malignant neoplasm of descending colon (HCC)dicyclomine (BENTYL) 20 mgTake 20 mg by mouth four times daily.Associated Diagnoses:Malignant neoplasm of descending colon (HCC)STOP taking these medicationsazithromycin (ZITHROMAX) 250 mg tabletComments:Reason for Stopping:potassium chloride ER (K-DUR, KLOR-CON) 20 mEqComments:Reason for Stopping:TIME OF CARE: Discharge Management: I personally spent less than 30minutes involved in the discharge management of this patient.SIGNATURE: Stoney Crawford MD PATIENT NAME: Ruth SmithDATE: April 27, 2018 : 5:01 PM PAGER/CONTACT #: [phone] Normal [facility] Magnesiumon 04-27-2018 Magnesium mass conc 1.6 mg/dL Low 1.7-2.6 [facility] Comment on above: Performed By: #### C SHIRAZ, JADE, MG1, PHOS ####[facility] [place], [place] [phone] PROGRESSon 04-27-2018 Protein mass conc HNO ID: [id number]: Stoney (Cesar Hawkinservice: ColorectalAuthor Type: ResidentType: Progress NotesFiled: 04/27/2018 9:12 AMNote Text:Colorectal Surgery Progress NoteName: Ruth SmithMRN: [id number] al update:Overall, patient is doing well. Overnight, reports being uncomfortable,and sore. Reports feeling bloated-Pain controlled with EMERGENCY MEDICINE MEDICAL DIRECTOR-Denies fevers, chills, chest pain, shortness of breath-No nausea/vomiting-Has passed flatus, has had loose bowel movementsObjectivePhysic al exam: BP 118/72 Pulse 62 Temp 36.5 ?C (97.7 ?F) (Oral) Resp 18 Ht 185.4 cm (6' 1 ) Wt 120 kg (264 lb 8.8 oz) SpO2 93% BMI 34.90 kg/m?- General: Patient is resting comfortably on exam, and is pleasant andcooperative. Is alert and oriented x3.- Abdomen: soft, appropriately tender, moderately distended. DressingClean, dry, intact. No erythema noted.- Chest: Non-labored, symmetrical respirations.Date 04/26/18 0700 - 04/27/18 0659 04/27/18 0700 - 04/28/18 0659Shift 4595-7330 2861-5337 6008-3007 24 Hour Total 0489-9522 [id number] 24 Hour TotalINTAKE PO 0925 600 9968 PO 8654 315 7509 IV 204 030 762 5891 NS 0.9% 204 901 194 7891 Shift Total 1404 814 518 2736OUTPUT Urine 2800 547 905 4148 750 750 Tube Output ([REMOVED] Indwelling Urinary Catheter 04/25/18 1019Assessment Coude 04/27/18 0735) 2800 743 775 0701 750 750 Shift Total 2800 790 785 2200 750 750Weight (kg) 120 120 120 120 120 120 120 120Medications:Current hospital medications:insulin lispro injection (rapid acting) (HumaLOG) SUBCUTANEOUS w MEALSAND HSlactobacillus rhamnosus 10 billion cell (CULTURELLE) capsule 1 capsuleORAL BIDNaCl 0.9% iv infusion 50 mL/hr INTRAVENOUS CONTINUOUStamsulosin ER 0.4 mg cap(s) (FLOMAX) 0.4 mg ORAL DAILYinfluenza vaccine 60 mcg (Patients 3 to 64 years) (PF) (FLUZONE )0.5 mL INTRAMUSCULAR ONCE (IMMUNIZATION)0.9% NaCl 2-10 mL 2-10 mL INTRAVENOUS q 12 Hmetoprolol succinate ER 50 mg tab(s) (TOPROL XL) 50 mg ORAL BIDtraZODone 50 mg tab(s) (DESYREL) 50 mg ORAL AT BEDTIMEcitalopram 20 mg tab(s) (CeleXA) 20 mg ORAL DAILYondansetron (PF) 4 mg injection (ZOFRAN) 4 mg INTRAVENOUS q 6 H PRNacetaminophen 1,000 mg tab(s) (TYLENOL) 1,000 mg ORAL q 6 Hgabapentin 300 mg cap(s) (NEURONTIN) 300 mg ORAL q 8 HoxyCODONE IR 5-10 mg tab(s) (ROXICODONE) 5-10 mg ORAL q 4 H PRNalvimopan 12 mg cap(s) (ENTEREG) 12 mg ORAL BIDheparin 5,000 Units injection 5,000 Units SUBCUTANEOUS q 12 Hdextrose 40 % 15 g 15 g ORAL PRNglucagon 1 mg injection (GLUCAGEN) 1 mg INTRAMUSCULAR PRNdextrose 50% in water 25 mL syringe 12.5 g INTRAVENOUS PRNLabsCBCCBCRecent Labs 04/26/1804WBC 6.00 6.93 6.36 5.82HB 11.4* 12.0* 11.2* 11.9*HCT 34.6* 37.1* 34.7* 36.4*PLT 77* 83* 67* 68*BMPRecent Labs 04/26/1804NA 137 136 136 135K 3.9 4.3 3.3* 3.8CHLOR 102 102 99 96*CO2 25 24 27 25BUN 6* 5* 12 15CREAT 0.69* 0.62* 0.70 0.69*GLUC 161* 113* 98 161*CA 8.1* 8.4* 7.8* 8.2*LFT'sRecent Labs TPROT 7.9ALB 4.5ALT 29AST 58*ALKPHOS 60TBILI 1.2Assessment/Plan49 M, POD 4 s/p laparoscopic hand assisted sigmoid colectomy, with side toside stapled colorectal anastomosis. Clinically doing well.PLAN:-diet: continue GIS-palacios to be discontinued-takedown EMERGENCY MEDICINE MEDICAL DIRECTOR today-PT/OT- Encourage incentive spirometry and ambulation- SCD's and SQH for DVT prophylaxis- Dispo: continue care on RNFSIGNATURE: Stoney Crawford MD PATIENT NAME: Ruth SmithDATE: April 27, 2018 : 9:08 AM PAGER/CONTACT #: [phone] Normal [facility] Phosphoruson 04-27-2018 Phosphate mass conc 2.9 mg/dL Normal 2.5-4.5 [facility] Comment on above: Performed By: #### C SHIRAZ, BMP, MG1, PHOS ####[facility] [place], [place] [phone] THERAPY NTon 04-27-2018 THERAPY NT HNO ID: [id number]: Yady (Pt) KilbaneService: Physical TherapyAuthor Type: Physical TherapistType: Therapy (PT/OT/Speech/Resp)Filed : 04/27/2018 11:02 AMNote Text:PHYSICAL THERAPY MISSED VISITSERVICE DATE: 04/27/2018SERVICE TIME: 1030 to 1030ROOM: [id number] Treatment. Patient not seen due to Other: See Comment. Patientobserved walking independently in the halls.SIGNATURE: Yady Cloud PT PATIENT NAME: Ruth SmithDATE: April 27, 2018 : 11:00 AM Normal [facility] Basic Metabolic Panlon 04-26 Anion gap 3 molar conc 10 mmol/L Normal 9-18 [facility] Comment on above: Performed By: #### B MP, MG1, PHOS, CBCDIF ####[place] [phone] Calcium mass conc 8.4 mg/dL Low 8.5-10.5 [facility] Comment on above: Performed By: #### B MP, MG1, PHOS, CBCDIF ####[phone] Chloride molar conc 102 mmol/L Normal 98-110 [facility] Comment on above: Performed By: #### B MP, MG1, PHOS, CBCDIF ####[place] [phone] CO2 molar conc 24 mmol/L Normal 23-32 [facility] Comment on above: Performed By: #### B MP, MG1, PHOS, CBCDIF ####[place] [phone] Creatinine mass conc 0.62 mg/dL Low 0.70-1.40 [facility] Comment on above: Performed By: #### B MP, MG1, PHOS, CBCDIF ####[place] [phone] eGFR- Amer. >60 Normal >60 [facility] Comment on above: Performed By: #### B MP, MG1, PHOS, CBCDIF ####[place] [phone] GFR/1.73 sq M predicted among non-blacks MDRD vol rate/area (S/P/Bld) mL/min/{1.73_m2} Normal >60 [facility] Comment on above: Performed By: #### B MP, MG1, PHOS, CBCDIF ####[place] [phone] Glucose mass conc 113 mg/dL High 65-100 [facility] Comment on above: Performed By: #### B MP, MG1, PHOS, CBCDIF ####[place] [phone] Potassium molar conc 4.3 mmol/L Normal 3.5-5.0 [facility] Comment on above: Result Comment: Revi ewed Performed By: #### B MP, MG1, PHOS, CBCDIF ####[place] [phone] Sodium molar conc 136 mmol/L Normal 135-146 [facility] Comment on above: Performed By: #### B MP, MG1, PHOS, CBCDIF ####[place] [phone] Urea nitrogen mass conc 5 mg/dL Low 10-25 [facility] Comment on above: Performed By: #### B MP, MG1, PHOS, CBCDIF ####[place] [phone] CBC and Differentialon 04-26 Abs Baso <0.03 Normal <0.11 [facility] Comment on above: Performed By: #### B MP, MG1, PHOS, CBCDIF ####[place] [phone] Abs [place] 0.66 k/uL Normal <0.87 [facility] Comment on above: Performed By: #### B MP, MG1, PHOS, CBCDIF ####[place] [phone] Abs Neut 4.86 k/uL Normal 1.45-7.50 [facility] Comment on above: Performed By: #### B MP, MG1, PHOS, CBCDIF ####[address] Basophils/100 WBC Auto (Bld) 0.1 % Normal [facility] Comment on above: Performed By: #### B MP, MG1, PHOS, CBCDIF ####[place] [phone] DTYPE Auto Diff Normal [facility] Comment on above: Performed By: #### B MP, MG1, PHOS, CBCDIF ####[place] [phone] Eosinophils Auto #/vol (Bld) 10*3/uL Normal <0.46 [facility] Comment on above: Performed By: #### B MP, MG1, PHOS, CBCDIF ####[address] Eosinophils/100 WBC Auto (Bld) 0.0 % Normal [facility] Comment on above: Performed By: #### B MP, MG1, PHOS, CBCDIF ####[place] [phone] Erythrocyte distribution width Auto Ratio (RBC) 14.9 % Normal 11.5-15.0 [facility] Comment on above: Performed By: #### B MP, MG1, PHOS, CBCDIF ####[place] [phone] Hematocrit Auto Volume Fraction (Bld) 37.1 % Low 39.0-51.0 [facility] Comment on above: Performed By: #### B MP, MG1, PHOS, CBCDIF ####[place] [phone] Hemoglobin mass conc (Bld) 12.0 g/dL Low 13.0-17.0 [facility] Comment on above: Performed By: #### B MP, MG1, PHOS, CBCDIF ####[place] [phone] Lymphocytes Auto #/vol (Bld) 1.40 10*3/uL Normal 1.00-4.00 [facility] Comment on above: Performed By: #### B MP, MG1, PHOS, CBCDIF ####[place] [phone] Lymphocytes/100 WBC Auto (Bld) 20.2 % Normal [facility] Comment on above: Performed By: #### B MP, MG1, PHOS, CBCDIF ####[place] [phone] MCH Auto Entitic mass (RBC) 28.9 pG Normal 26.0-34.0 [facility] Comment on above: Performed By: #### B MP, MG1, PHOS, CBCDIF ####[place] [phone] MCHC Auto mass conc (RBC) 32.3 g/dL Normal 30.5-36.0 [facility] Comment on above: Performed By: #### B MP, MG1, PHOS, CBCDIF ####[place] [phone] MCV Auto Entitic volume (RBC) 89.4 fL Normal 80.0-100.0 [facility] Comment on above: Performed By: #### B MP, MG1, PHOS, CBCDIF ####[place] [phone] Monocytes/100 WBC Auto (Bld) 9.5 % Normal [facility] Comment on above: Performed By: #### B MP, MG1, PHOS, CBCDIF ####[place] [phone] Neutrophils/100 WBC Auto (Bld) 70.2 % Normal [facility] Comment on above: Performed By: #### B MP, MG1, PHOS, CBCDIF ####[place] [phone] Platelet mean volume Auto Entitic volume (Bld) 13.7 fL High 9.0-12.7 [facility] Comment on above: Performed By: #### B MP, MG1, PHOS, CBCDIF ####[place] [phone] Platelets Auto #/vol (Bld) 83 10*3/uL Low 150-400 [facility] Comment on above: Result Comment: Revi ewedSample checked for a clot. Performed By: #### B MP, MG1, PHOS, CBCDIF ####[place] [phone] RBC Auto #/vol (Bld) 4.15 10*6/uL Low 4.20-6.00 [facility] Comment on above: Performed By: #### B MP, MG1, PHOS, CBCDIF ####[place] [phone] WBC Auto #/vol (Bld) 6.93 10*3/uL Normal 3.70-11.00 [facility] Comment on above: Performed By: #### B MP, MG1, PHOS, CBCDIF ####[place] [phone] Magnesiumon 04-26-2018 Magnesium mass conc 1.7 mg/dL Normal 1.7-2.6 [facility] Comment on above: Performed By: #### B MP, MG1, PHOS, CBCDIF ####[place] [phone] NURSING PROGon 04-26-2018 Protein mass conc HNO ID: [id number]: Pilar HallRn) DANIA Daveyervice: (none)Author Type: Registered NurseType: Nursing Progress NoteFiled: 04/27/2018 1:14 AMNote Text: Nursing Progress NotePatient Name: Ruth SmithMRN: [id number] Location: [id number]/XI-QC9N-91____ Daily Note:tolerating gi soft diet without n/v. ambulated pod with 1assist and walker. several times. abdomemn is distended and tender,sites look [id number] up in room, pas on when not ambulatingThis note was completed by: Pilar Davey RN [facility] Protein mass conc HNO ID: [id number]: Liz (Elias) Kimberley, RNService: (none)Author Type: Registered NurseType: Nursing Progress NoteFiled: 04/26/2018 2:44 AMNote Text: Nursing Progress NotePatient Name: Ruth SmithMRN: [id number] Location: [id number]/QU-GA9I-21____ Daily note: Pt ambulated the POD several times tonight, has had multipleBM's, still taking oxy for pain as well as using the EMERGENCY MEDICINE MEDICAL DIRECTOR pump but says heis trying to hit the pump less. Will continue to monitor and check withpatient.This note was completed by: Liz Chu RN [facility] PROGRESSon 04-26-2018 Protein mass conc HNO ID: [id number]: Stoney (Alexis) HarlanirService: ColorectalAuthor Type: ResidentType: Progress NotesFiled: 04/26/2018 7:43 AMNote Text:Colorectal Surgery Progress NoteName: Ruth SmithMRN: [id number] al update:Overall, patient is doing well. Overnight, reports being uncomfortable,and sore. Reports feeling bloated-Pain controlled with EMERGENCY MEDICINE MEDICAL DIRECTOR-Denies fevers, chills, chest pain, shortness of breath-No nausea/vomiting-Has passed flatus, has had a bowel movementObjectivePhysica l exam: BP 137/69 Pulse 69 Temp 36.6 ?C (97.8 ?F) (Oral) Resp 16 Ht 185.4 cm (6' 1 ) Wt 120 kg (264 lb 8.8 oz) SpO2 92% BMI 34.90 kg/m?- General: Patient is resting comfortably on exam, and is pleasant andcooperative. Is alert and oriented x3.- Abdomen: soft, appropriately tender, moderately distended. DressingClean, dry, intact. No erythema noted.- Chest: Non-labored, symmetrical respirations.Date 04/25/18 07 - 04/26/18 0659 04/26/18 0700 - 04/27/18 0659Shift 6917-6921 5613-1775 4263-3591 24 Hour Total 7079-7618 [id number] 24 Hour TotalINTAKE PO 463 476 8421 2405 PO 242 132 6692 2405 IV 890 5949 044 5530 NS 0.9% 640 0953 333 8917 Potassium Phosphate 250 250 Shift Total 1130 2025 1675 4830OUTPUT Urine 845 1625 3875 6345 Void (ml) 0 0 Tube Output ( Indwelling Urinary Catheter 04/25/18 1019 AssessmentCoude) 845 1625 3875 6345 # of BMs Number of BMs 1 x 1 x Shift Total 845 1625 3875 6345Weight (kg) 120 120 120 120 120 120 120 120Medications:Current hospital medications:insulin lispro injection (rapid acting) (HumaLOG) SUBCUTANEOUS q 6 Hlactobacillus rhamnosus 10 billion cell (CULTURELLE) capsule 1 capsuleORAL BIDNaCl 0.9% iv infusion 50 mL/hr INTRAVENOUS CONTINUOUStamsulosin ER 0.4 mg cap(s) (FLOMAX) 0.4 mg ORAL DAILYinfluenza vaccine 60 mcg (Patients 3 to 64 years) (PF) (FLUZONE 2017-)0.5 mL INTRAMUSCULAR ONCE (IMMUNIZATION)0.9% NaCl 2-10 mL 2-10 mL INTRAVENOUS q 12 Hmetoprolol succinate ER 50 mg tab(s) (TOPROL XL) 50 mg ORAL BIDtraZODone 50 mg tab(s) (DESYREL) 50 mg ORAL AT BEDTIMEcitalopram 20 mg tab(s) (CeleXA) 20 mg ORAL DAILYondansetron (PF) 4 mg injection (ZOFRAN) 4 mg INTRAVENOUS q 6 H PRNacetaminophen 1,000 mg tab(s) (TYLENOL) 1,000 mg ORAL q 6 Hgabapentin 300 mg cap(s) (NEURONTIN) 300 mg ORAL q 8 Hibuprofen 800 mg tab(s) (MOTRIN) 800 mg ORAL q 8 HoxyCODONE IR 5-10 mg tab(s) (ROXICODONE) 5-10 mg ORAL q 4 H PRNHYDROmorphone EMERGENCY MEDICINE MEDICAL DIRECTOR 0.5 mg/mL in NaCl 0.9% 100 mL INTRAVENOUS CONTINUOUSalvimopan 12 mg cap(s) (ENTEREG) 12 mg ORAL BIDheparin 5,000 Units injection 5,000 Units SUBCUTANEOUS q 12 Hdextrose 40 % 15 g 15 g ORAL PRNglucagon 1 mg injection (GLUCAGEN) 1 mg INTRAMUSCULAR PRNdextrose 50% in water 25 mL syringe 12.5 g INTRAVENOUS PRNLabsCBCCBCRecent Labs 04/25/1805WBC 6.93 6.36 5.82 9.55HB 12.0* 11.2* 11.9* 12.7*HCT 37.1* 34.7* 36.4* 38.1*PLT 83* 67* 68* 77*BMPRecent Labs 04/25/1805NA 136 136 135 136K 4.3 3.3* 3.8 3.1*CHLOR 102 99 96* 96*CO2 24 27 25 28BUN 5* 12 15 14CREAT 0.62* 0.70 0.69* 0.77GLUC 113* 98 161* 140*CA 8.4* 7.8* 8.2* 8.1*LFT'sRecent Labs TPROT 7.9ALB 4.5ALT 29AST 58*ALKPHOS 60TBILI 1.2Assessment/Plan49 M, POD 3 s/p laparoscopic hand assisted sigmoid colectomy, with side toside stapled colorectal anastomosis. Clinically doing well.PLAN:-diet: continue clear liquids-PT/OT-keep palacios in-decrease EMERGENCY MEDICINE MEDICAL DIRECTOR settings- Encourage incentive spirometry and ambulation- SCD's and SQH for DVT prophylaxis- Dispo: continue care on RNF?SIGNATURE: Stoney Crawford MD PATIENT NAME: Ruth SmithDATE: April 26, 2018 : 7:42 AM PAGER/CONTACT #: [phone] Normal [facility] Phosphoruson 04-26-2018 Phosphate mass conc 2.1 mg/dL Low 2.5-4.5 [facility] Comment on above: Performed By: #### B MP, MG1, PHOS, CBCDIF ####[place] [phone] Basic Metabolic Panlon 04-25 Anion gap 3 molar conc 10 mmol/L Normal 9-18 [facility] Comment on above: Performed By: #### C BCDIF, BMP, MG1, PHOS ####[place] [phone] Calcium mass conc 7.8 mg/dL Low 8.5-10.5 [facility] Comment on above: Performed By: #### C BCDIF, BMP, MG1, PHOS ####[place] [phone] Chloride molar conc 99 mmol/L Normal 98-110 [facility] Comment on above: Performed By: #### C BCDIF, BMP, MG1, PHOS ####[place] [phone] CO2 molar conc 27 mmol/L Normal 23-32 [facility] Comment on above: Performed By: #### C BCDIF, BMP, MG1, PHOS ####[place] [phone] Creatinine mass conc 0.70 mg/dL Normal 0.70-1.40 [facility] Comment on above: Performed By: #### C BCDIF, BMP, MG1, PHOS ####[place] [phone] eGFR- Amer. >60 Normal >60 [facility] Comment on above: Performed By: #### C BCDIF, BMP, MG1, PHOS ####[place] [phone] GFR/1.73 sq M predicted among non-blacks MDRD vol rate/area (S/P/Bld) mL/min/{1.73_m2} Normal >60 [facility] Comment on above: Performed By: #### C BCDIF, BMP, MG1, PHOS ####[place] [phone] Glucose mass conc 98 mg/dL Normal 65-100 [facility] Comment on above: Performed By: #### C BCDIF, BMP, MG1, PHOS ####[place] [phone] Potassium molar conc 3.3 mmol/L Low 3.5-5.0 [facility] Comment on above: Performed By: #### C BCDIF, BMP, MG1, PHOS ####[place] [phone] Sodium molar conc 136 mmol/L Normal 135-146 [facility] Comment on above: Performed By: #### C BCDIF, BMP, MG1, PHOS ####[place] [phone] Urea nitrogen mass conc 12 mg/dL Normal 10-25 [facility] Comment on above: Performed By: #### C BCDIF, BMP, MG1, PHOS ####[place] [phone] CBC and Differentialon 04-25 Abs Baso <0.03 Normal <0.11 [facility] Comment on above: Performed By: #### C BCDIF, BMP, MG1, PHOS ####[place] [address] Abs [place] 0.59 k/uL Normal <0.87 [facility] Comment on above: Performed By: #### C BCDIF, BMP, MG1, PHOS ####[place] [address] Abs Neut 4.45 k/uL Normal 1.45-7.50 [facility] Comment on above: Performed By: #### C BCDIF, BMP, MG1, PHOS ####[place] [address] Basophils/100 WBC Auto (Bld) 0.2 % Normal [facility] Comment on above: Performed By: #### C BCDIF, BMP, MG1, PHOS ####[place] [address] DTYPE Auto Diff Normal [facility] Comment on above: Performed By: #### C BCDIF, BMP, MG1, PHOS ####[place] [address] Eosinophils Auto #/vol (Bld) 10*3/uL Normal <0.46 [facility] Comment on above: Performed By: #### C BCDIF, BMP, MG1, PHOS ####[place] [address] Eosinophils/100 WBC Auto (Bld) 0.0 % Normal [facility] Comment on above: Performed By: #### C BCDIF, BMP, MG1, PHOS ####[place] [address] Erythrocyte distribution width Auto Ratio (RBC) 15.2 % High 11.5-15.0 [facility] Comment on above: Performed By: #### C BCDIF, BMP, MG1, PHOS ####[place] [address] Hematocrit Auto Volume Fraction (Bld) 34.7 % Low 39.0-51.0 [facility] Comment on above: Performed By: #### C BCDIF, BMP, MG1, PHOS ####[place] [phone] Hemoglobin mass conc (Bld) 11.2 g/dL Low 13.0-17.0 [facility] Comment on above: Performed By: #### C BCDIF, BMP, MG1, PHOS ####[place] [phone] Lymphocytes Auto #/vol (Bld) 1.31 10*3/uL Normal 1.00-4.00 [facility] Comment on above: Performed By: #### C BCDIF, BMP, MG1, PHOS ####[place] [phone] Lymphocytes/100 WBC Auto (Bld) 20.6 % Normal [facility] Comment on above: Performed By: #### C BCDIF, BMP, MG1, PHOS ####[place] [phone] MCH Auto Entitic mass (RBC) 28.6 pG Normal 26.0-34.0 [facility] Comment on above: Performed By: #### C BCDIF, BMP, MG1, PHOS ####[place] [phone] MCHC Auto mass conc (RBC) 32.3 g/dL Normal 30.5-36.0 [facility] Comment on above: Performed By: #### C BCDIF, BMP, MG1, PHOS ####[place] [phone] MCV Auto Entitic volume (RBC) 88.5 fL Normal 80.0-100.0 [facility] Comment on above: Performed By: #### C BCDIF, BMP, MG1, PHOS ####[place] [phone] Monocytes/100 WBC Auto (Bld) 9.3 % Normal [facility] Comment on above: Performed By: #### C BCDIF, BMP, MG1, PHOS ####[place] [phone] Neutrophils/100 WBC Auto (Bld) 69.9 % Normal [facility] Comment on above: Performed By: #### C BCDIF, BMP, MG1, PHOS ####[place] [phone] Platelet mean volume Auto Entitic volume (Bld) 12.7 fL Normal 9.0-12.7 [facility] Comment on above: Performed By: #### C BCDIF, BMP, MG1, PHOS ####[place] [phone] Platelets Auto #/vol (Bld) 67 10*3/uL Low 150-400 [facility] Comment on above: Result Comment: Resu lt checked and verifiedSample checked for a clot. Performed By: #### C BCDIF, BMP, MG1, PHOS ####[place] [phone] RBC Auto #/vol (Bld) 3.92 10*6/uL Low 4.20-6.00 [facility] Comment on above: Performed By: #### C BCDIF, BMP, MG1, PHOS ####[place] [phone] WBC Auto #/vol (Bld) 6.36 10*3/uL Normal 3.70-11.00 [facility] Comment on above: Performed By: #### C BCDIF, BMP, MG1, PHOS ####[place] [phone] Magnesiumon 04-25-2018 Magnesium mass conc 1.8 mg/dL Normal 1.7-2.6 [facility] Comment on above: Performed By: #### C BCDIF, BMP, MG1, PHOS ####[address] [place] [phone] NURSING PROGon 04-25-2018 Protein mass conc HNO ID: [id number]: Samaria Lea (Rn) Eusebio Hernandez: (none)Author Type: Registered NurseType: Nursing Progress NoteFiled: 04/25/2018 11:37 AMNote Text: Nursing Progress NotePatient Name: Ruth SmithMRN: [id number] Location: ____ Daily Note: Patient was unable to void and kept trying but Dr ordered toreplace palacios catheter and initially 500ml out; he has been walking theentire pod already a few times today tolerates well, had a liquid bm, +flatus, started a clear liquid diet, tolerating, still has some abdominaldistention, uses school nurse for pain control and prn oxy pain score 7 to 8,receiving KPhos bolus and po K+, stable, continue to monitor.This note was completed by: Samaria Hernandez RN [facility] Protein mass conc HNO ID: [id number]: Azul (Rn) Eusebio Tobar: (none)Author Type: Registered NurseType: Nursing Progress NoteFiled: 04/25/2018 6:48 AMNote Text: Nursing Progress NotePatient Name: Ruth SmithMRN: [id number] Location: /[id number]____ Daily Note: 1944 (late entry): Pt unable to void since palacios removal thisafternoon. Pt bladder scanned for 168 mL. Safety maintained and call [facility] reach. Will continue to monitor.0019 (late entry): Pt attempted to void several times without success. Ptbladder scanned for 423 mL. SROC made aware of bladder scan.0050 (late entry): Order received for straight cath x1. Pt states he wouldlike to try to void one last time.0144 (late entry): Pt straight cathed for 650 mL of dark lita urine,tolerated well.0159: Pt ambulated pod with assist and walker.0645: Pt bladder scanned for 305 mL. Text page sent to surgical residentDr. Crawford to make aware. Will await further orders.This note was completed by: Azul Tobar RN [facility] PROGRESSon 04-25-2018 Protein mass conc HNO ID: [id number]: Stoney (Alexis) Shruthiervice: ColorectalAuthor Type: ResidentType: Progress NotesFiled: 04/25/2018 1:35 PMNote Text:Colorectal Surgery Progress NoteName: Ruth SmithMRN: [id number] al update:Overall, patient is doing well. Overnight, pt unable to void since foleyremoval yesterday afternoon. Pt bladder scanned for 168 mL. Pt straightcathed for 650 mL of dark lita urine, tolerated well. Unable to voidagain several hours later, palacios replaced.-Pain controlled with EMERGENCY MEDICINE MEDICAL DIRECTOR, feels uncomfortable-Denies fevers, chills, chest pain, shortness of breath-No nausea/vomiting-Has passed flatus, has not had a bowel movementObjectivePhysica l exam: BP 121/72 Pulse 71 Temp 36.7 ?C (98.1 ?F) (Oral) Resp 18 Ht 185.4 cm (6' 1 ) Wt 120 kg (264 lb 8.8 oz) SpO2 94% BMI 34.90 kg/m?- General: Patient is resting comfortably on exam, and is pleasant andcooperative. Is alert and oriented x3.- Abdomen: soft, appropriately tender, non distended. Dressing Clean, dry,intact. No erythema noted.- Chest: Non-labored, symmetrical respirations.Date 04/24/18 07 - 04/25/18 0659 04/25/18 07 - 04/26/18 0659Shift 1448-4143 2577-0157 8583-2896 24 Hour Total 9156-1608 8295-38120738-9600 24 Hour TotalINTAKE PO 200 280 120 600 120 120 PO 200 280 120 600 120 120 IV 591 061 064 5341 NS 0.9% 046 500 3796 LR 591 591 Shift Total 791 7393 466 6800 120 120OUTPUT Urine 225 650 875 845 845 Void (ml) 0 0 0 0 Straight cath (ml) 650 650 Tube Output ( Indwelling Urinary Catheter 04/25/18 1019 AssessmentCoude) 845 845 Tube Output ([REMOVED] Indwelling Urinary Catheter 04/23/18 1118Foley 16 Fr 04/24/18 1303) 225 225 # of BMs Number of BMs 0 x 0 x 1 x 1 x Shift Total 225 650 875 845 845Weight (kg) 120 120 120 120 120 120 120 120Medications:Current hospital medications:potassium phosphate 30 mmol in NaCl 0.9% 250 mL 30 mmol INTRAVENOUS ONCEinsulin lispro injection (rapid acting) (HumaLOG) SUBCUTANEOUS q 6 Hlactobacillus rhamnosus 10 billion cell (CULTURELLE) capsule 1 capsuleORAL BIDNaCl 0.9% iv infusion 80 mL/hr INTRAVENOUS CONTINUOUStamsulosin ER 0.4 mg cap(s) (FLOMAX) 0.4 mg ORAL DAILYinfluenza vaccine 60 mcg (Patients 3 to 64 years) (PF) (FLUZONE )0.5 mL INTRAMUSCULAR ONCE (IMMUNIZATION)0.9% NaCl 2-10 mL 2-10 mL INTRAVENOUS q 12 Hmetoprolol succinate ER 50 mg tab(s) (TOPROL XL) 50 mg ORAL BIDtraZODone 50 mg tab(s) (DESYREL) 50 mg ORAL AT BEDTIMEcitalopram 20 mg tab(s) (CeleXA) 20 mg ORAL DAILYondansetron (PF) 4 mg injection (ZOFRAN) 4 mg INTRAVENOUS q 6 H PRNacetaminophen 1,000 mg tab(s) (TYLENOL) 1,000 mg ORAL q 6 Hgabapentin 300 mg cap(s) (NEURONTIN) 300 mg ORAL q 8 Hibuprofen 800 mg tab(s) (MOTRIN) 800 mg ORAL q 8 HoxyCODONE IR 5-10 mg tab(s) (ROXICODONE) 5-10 mg ORAL q 4 H PRNHYDROmorphone EMERGENCY MEDICINE MEDICAL DIRECTOR 0.5 mg/mL in NaCl 0.9% 100 mL INTRAVENOUS CONTINUOUSalvimopan 12 mg cap(s) (ENTEREG) 12 mg ORAL BIDheparin 5,000 Units injection 5,000 Units SUBCUTANEOUS q 12 Hdextrose 40 % 15 g 15 g ORAL PRNglucagon 1 mg injection (GLUCAGEN) 1 mg INTRAMUSCULAR PRNdextrose 50% in water 25 mL syringe 12.5 g INTRAVENOUS PRNLabsCBCCBCRecent Labs 04/24/1804WBC 6.36 5.82 9.55 10.90HB 11.2* 11.9* 12.7* 16.7HCT 34.7* 36.4* 38.1* 51.6*PLT 67* 68* 77* 123*BMPRecent Labs 04/24/1812NA 136 135 136 135K 3.3* 3.8 3.1* 3.5CHLOR 99 96* 96* 93*CO2 27 25 28 23BUN 12 15 14 12CREAT 0.70 0.69* 0.77 0.75GLUC 98 161* 140* 242*CA 7.8* 8.2* 8.1* 8.6LFT'sRecent Labs TPROT 7.9ALB 4.5ALT 29AST 58*ALKPHOS 60TBILI 1.2Assessment/Plan49 M, POD 2 s/p laparoscopic hand assisted sigmoid colectomy, with side toside stapled colorectal anastomosis. Clinically doing well.PLAN:-diet: clear liquids-PT/OT- Encourage incentive spirometry and ambulation- SCD's and SQH for DVT prophylaxis- Dispo: continue care on RNF?SIGNATURE: Stoney Crawford MD PATIENT NAME: Ruth SmithDATE: April 25, 2018 : 1:35 PM PAGER/CONTACT #: [id number] [facility] PT EDon 04-25-2018 PT ED HNO ID: [id number]: [place] (Diet-T) AdrianService: Nutrition TherapyAuthor Type: Dietetic TechnicianType: Patient EducationFiled: 04/25/2018 1:58 PMNote Text:NUTRITION PATIENT EDUCATIONTOPIC: Survival Skills: DietPATIENT NAME: Ruth SmithMRN: [id number] DATE: April 25, 2018Diagnosis: ADULT: Colon CancerREADINESS TO LEARNMotivation to Learn: InterestedFamily Support: Unable to assess - Family not presentInstruction Provided to: PatientFactors Affecting Learning: NonePhysical Limitations Affecting Learning: NoneLEARNING RESPONSEPatient / Family Response: Verbalizes understanding of CORS/GI Soft Diet:Rationale behind diet restriction, foods allowed/to avoid, small frequentmeals, chewing thoroughly, fluid recommendations, how long to continue ondiet as well as how to transition off diet and(if applicable) dealing withpotential problems (ostomy patients only).Method of Instruction: Written instruction - handoutsVerbal instructionInstructional Aids Used: NASupplemental Material Provided to Patient: G/L for GI Soft DietCurrently tolerating clear liquid diet, continue to monitor.Referral (Recommendation): Nutrition - OutpatientMNT Billing Type: Routine Care/15 min 3 Mg GUAJARDO, diet-tPager: [id number] 20171:57 PM Normal [facility] Phosphoruson 04-25-2018 Phosphate mass conc 2.4 mg/dL Low 2.5-4.5 [facility] Comment on above: Performed By: #### C BCDIF, BMP, MG1, PHOS ####[place] [id number] [place], [place] [phone] Basic Metabolic Panlon 04-24 Anion gap 3 molar conc 14 mmol/L Normal 9-18 [facility] Comment on above: Performed By: #### B MP ####[facility] [place], [place] [phone] Calcium mass conc 8.2 mg/dL Low 8.5-10.5 [facility] Comment on above: Performed By: #### B MP ####[address] [phone] Chloride molar conc 96 mmol/L Low 98-110 [facility] Comment on above: Performed By: #### B MP ####[place] [phone] CO2 molar conc 25 mmol/L Normal 23-32 [facility] Comment on above: Performed By: #### B MP ####[place] [phone] Creatinine mass conc 0.69 mg/dL Low 0.70-1.40 [facility] Comment on above: Performed By: #### B MP ####[place] [phone] eGFR- Amer. >60 Normal >60 [facility] Comment on above: Performed By: #### B MP ####[place] [phone] GFR/1.73 sq M predicted among non-blacks MDRD vol rate/area (S/P/Bld) mL/min/{1.73_m2} Normal >60 [facility] Comment on above: Performed By: #### B MP ####[place] [phone] Glucose mass conc 161 mg/dL High 65-100 [facility] Comment on above: Performed By: #### B MP ####[place] [phone] Potassium molar conc 3.8 mmol/L Normal 3.5-5.0 [facility] Comment on above: Result Comment: Revi ewed Performed By: #### B MP ####[place] [phone] Sodium molar conc 135 mmol/L Normal 135-146 [facility] Comment on above: Performed By: #### B MP ####[place] [phone] Urea nitrogen mass conc 15 mg/dL Normal 10-25 [facility] Comment on above: Performed By: #### B MP ####[place] [phone] Anion gap 3 molar conc 12 mmol/L Normal 9-18 [facility] Comment on above: Performed By: #### T SCR30 ####[place] [phone] Calcium mass conc 8.1 mg/dL Low 8.5-10.5 [facility] Comment on above: Performed By: #### T SCR30 ####[place] [phone] Chloride molar conc 96 mmol/L Low 98-110 [facility] Comment on above: Performed By: #### T SCR30 ####[place] [phone] CO2 molar conc 28 mmol/L Normal 23-32 [facility] Comment on above: Performed By: #### T SCR30 ####[place] [phone] Creatinine mass conc 0.77 mg/dL Normal 0.70-1.40 [facility] Comment on above: Performed By: #### T SCR30 ####[place] [phone] eGFR- Amer. >60 Normal >60 [facility] Comment on above: Performed By: #### T SCR30 ####[place] [phone] GFR/1.73 sq M predicted among non-blacks MDRD vol rate/area (S/P/Bld) mL/min/{1.73_m2} Normal >60 [facility] Comment on above: Performed By: #### T SCR30 ####[place] [phone] Glucose mass conc 140 mg/dL High 65-100 [facility] Comment on above: Performed By: #### T SCR30 ####[place] [phone] Potassium molar conc 3.1 mmol/L Low 3.5-5.0 [facility] Comment on above: Performed By: #### T SCR30 ####[facility] [place], [place] [phone] Sodium molar conc 136 mmol/L Normal 135-146 [facility] Comment on above: Performed By: #### T SCR30 ####[facility] [place], [place] [phone] Urea nitrogen mass conc 14 mg/dL Normal 10-25 [facility] Comment on above: Performed By: #### T SCR30 ####[facility] [place], [place] [phone] CASE MGT INIT ASSESon 2017 CASE MGT INIT ASSDECLAN HNO ID: [id number]: Myah (Rn) Omkar, RNService: Care ManagementAuthor Type: Registered NurseType: Care Mgt Initial AssessmentFiled: 04/24/2018 3:07 PMNote Text:CARE MANAGEMENT: ASSESSMENT AND DISCHARGE PLANSERVICE DATE: 04/24/2018SERVICE TIME: 3:01 PMPRIMARY CARE PHYSICIAN:León Tubbs: [phone] STATUS: InpatientMEDICAL:Patient /Skimmer Stated Goals:To have reduction in symptomsTo return home to life as it wasHealth Insurance: MEDICARE A AND ealth Issues Impacting Discharge Plan: Newly diagnosed Cancer and ChronicDiabetesLast Admission Date: noneIs this Within the Past 30 days? NoAdvance Directive:Current Advance Directive: Health Care Power of AttorneyIn Chart: [employer] Senior Sql Database Developer Attempted to Assist with AD Completion: YesAction: Education Provided (Patient and gma state that the patient doeshave a POA. I informed family it is not on file and they should bring itin to be scanned to chart.)Health Literacy:1. How often do you need to have someone help you when you readinstructions, pamphlets, or other written material from your doctor orpharmacy? Never - 12. How confident are you filling out medical forms by yourself? Extremely- 1If Patient scores > 3 on either question, the following interventions wereput into place:Patient did not score > 3FUNCTIONAL AND COGNITIVE/BEHAVIORALPRIO R TO ADMISSION:Baseline Mental Status: Alert AND Oriented, Person, Place , Time andSituationFunctional Status: Needs AssistanceDoes Patient Currently Receive Any Community Services or Home Care? NoneEquipment Prior to Admission: Cane - StraightHas the Patient Been in a Long-Term Facility in the Past 30 days? NoSOCIAL:Living Arrangement: HomeLives With: grandma and grandpaFinancial Resources: DisabledPrimary Contact: Extended Emergency Contact InformationPrimary Emergency Contact: Matt Mahan Zesirk Nqlvyrwq: GrandparentSupportive: YesOther Important Patient Contacts: NoneCaregiver Assessment:Caregiver is ready, willing and able to meet the patient's needs asrecommended by the inter-professional team? YesPatient's transition needs and plan for meeting these needs: grandparentswill transport patient home at discharge.Does the patient have an acute stroke diagnosis, or has the patient had astroke during this admission? NoMedication Adherence:I am convinced of the importance of my prescription medication: Agreecompletely - 0I worry that my prescription medication will do more harm than good to meDisagree mostly - 0I feel financially burdened by my xyd-oo-cosdna expenses for myprescription medication: Disagree mostly -0Patient is categorized as low risk < 2Are you interested in bedside delivery of your medications? YesFood Concerns:In the Last Month, Have You had Trouble Getting Food? No trouble gettingfoodDuring the Last Month, Have You Worried Whether Your Food Would Run OutBefore You Had Enough Money to Buy More? NoIs the Patient Psychosocially Complex? NoASSESSMENT AND PLAN:Medical Needs: 2 or more chronic diseasesPsychosocial Needs: NoneFREEDOM OF CHOICE EXPLAINED:N/APOTENTIAL TRANSITION PLANSHomeThis test case developer met with the patient at bedside. Patient lives with hisgrandmother and grandfather. They were both in the room at this time.Patient gave me permission to talk in front of grandparents. Patient vannessa disability and does not drive. He plans to return home withgrandparents at discharge. No home going needs assessed at this time.Case management will continue to assist with transition of care as needed.SIGNATURE: Myah Espitia RN,DNP PATIENT NAME: Ruth SmithDATE: April 24, 2018 : 3:01 PM PAGER/CONTACT #: Normal [facility] CBC and Differentialon 04-24 Abs Baso <0.03 Normal <0.11 [facility] Comment on above: Performed By: #### B MP, PHOS, CBCDIF, MG1 ####[place] [address] Abs [place] 0.65 k/uL Normal <0.87 [facility] Comment on above: Performed By: #### B MP, PHOS, CBCDIF, MG1 ####[place] [address] Abs Neut 3.98 k/uL Normal 1.45-7.50 [facility] Comment on above: Performed By: #### B MP, PHOS, CBCDIF, MG1 ####[place] [address] Basophils/100 WBC Auto (Bld) 0.2 % [facility] Comment on above: Performed By: #### B MP, PHOS, CBCDIF, MG1 ####[place] [address] DTYPE Auto Diff Normal [facility] Comment on above: Performed By: #### B MP, PHOS, CBCDIF, MG1 ####[place] [address] Eosinophils Auto #/vol (Bld) 10*3/uL Normal <0.46 [facility] Comment on above: Performed By: #### B MP, PHOS, CBCDIF, MG1 ####[address] Eosinophils/100 WBC Auto (Bld) 0.3 % [facility] Comment on above: Performed By: #### B MP, PHOS, CBCDIF, MG1 ####[place] [address] Erythrocyte distribution width Auto Ratio (RBC) 15.2 % High 11.5-15.0 [facility] Comment on above: Performed By: #### B MP, PHOS, CBCDIF, MG1 ####[place] [address] Hematocrit Auto Volume Fraction (Bld) 36.4 % Low 39.0-51.0 [facility] Comment on above: Performed By: #### B MP, PHOS, CBCDIF, MG1 ####[place] [address] Hemoglobin mass conc (Bld) 11.9 g/dL Low 13.0-17.0 [facility] Comment on above: Performed By: #### B MP, PHOS, CBCDIF, MG1 ####[place] [address] Lymphocytes Auto #/vol (Bld) 1.16 10*3/uL Normal 1.00-4.00 [facility] Comment on above: Performed By: #### B MP, PHOS, CBCDIF, MG1 ####[place] [address] Lymphocytes/100 WBC Auto (Bld) 19.9 % Normal [facility] Comment on above: Performed By: #### B MP, PHOS, CBCDIF, MG1 ####[place] [address] MCH Auto Entitic mass (RBC) 28.3 pG Normal 26.0-34.0 [facility] Comment on above: Performed By: #### B MP, PHOS, CBCDIF, MG1 ####[place] [phone] MCHC Auto mass conc (RBC) 32.7 g/dL Normal 30.5-36.0 [facility] Comment on above: Performed By: #### B MP, PHOS, CBCDIF, MG1 ####[place] [phone] MCV Auto Entitic volume (RBC) 86.7 fL Normal 80.0-100.0 [facility] Comment on above: Performed By: #### B MP, PHOS, CBCDIF, MG1 ####[place] [phone] Monocytes/100 WBC Auto (Bld) 11.2 % Normal [facility] Comment on above: Performed By: #### B MP, PHOS, CBCDIF, MG1 ####[place] [phone] Neutrophils/100 WBC Auto (Bld) 68.4 % Normal [facility] Comment on above: Performed By: #### B MP, PHOS, CBCDIF, MG1 ####[place] [phone] Platelet mean volume Auto Entitic volume (Bld) 13.3 fL High 9.0-12.7 [facility] Comment on above: Performed By: #### B MP, PHOS, CBCDIF, MG1 ####[place] [phone] Platelets Auto #/vol (Bld) 68 10*3/uL Low 150-400 [facility] Comment on above: Result Comment: Revi ewedSample checked for a clot. Performed By: #### B MP, PHOS, CBCDIF, MG1 ####[place] [phone] RBC Auto #/vol (Bld) 4.20 10*6/uL Normal 4.20-6.00 [facility] Comment on above: Performed By: #### B MP, PHOS, CBCDIF, MG1 ####[place] [phone] WBC Auto #/vol (Bld) 5.82 10*3/uL Normal 3.70-11.00 [facility] Comment on above: Performed By: #### B MP, PHOS, CBCDIF, MG1 ####[address] [phone] Magnesiumon 04-24-2018 Magnesium mass conc 1.9 mg/dL Normal 1.7-2.6 [facility] Comment on above: Performed By: #### B MP, PHOS, CBCDIF, MG1 ####[place] [phone] [place], [place] [phone] NURSING PROGon 04-24-2018 Protein mass conc HNO ID: [id number]: Bentley (Rn) DANIA Thompsonervice: (none)Author Type: Registered NurseType: Nursing Progress NoteFiled: 04/24/2018 5:47 PMNote Text: Nursing Progress NotePatient Name: Ruth SmithMRN: [id number] Location: [place] [address]/[id number]____ Daily Note:04/24/18 0744- Sent page to Dr. Webb to clarify K+ order.0845- Spoke with Dr. Webb, she clarified the patient should [id number] of IV K+.0930- Patient was assisted to the chair with two person assist and awalker. Patient tolerated the movement well. Patient is alert andoriented times three, calm and cooperative. Vitals are stable, oxygensaturation is adequate on room air. Changed fluids to normal saline perorders; EMERGENCY MEDICINE MEDICAL DIRECTOR settings verified against orders. Pain controlled with EMERGENCY MEDICINE MEDICAL DIRECTOR,scheduled tylenol and toradol. Hand grasps and push/pulls are equalbilaterally, pulses are palpable with good movement, patient complains ofchronic numbness to feet, bilaterally. Lungs are clear with diminishedbases; encouraged use of incentive spirometer. Abdomen is softlydistended, bowel sounds are hypoactive in all quadrants. Dressing tomidline incision and bandaids remain intact with old shadowing noted.Patient is now able to have small sips of clear liquids, He is aware andagreeable. Glucose being monitored every six hours. PAS being wornbilaterally. Potassium replacement has been started. No needs at thistime. Call light and belongings are within reach.1500- Patient walked with PT/OT and assisted back to the chair. Once backin the chair he became diaphoretic and stated he was having a difficulttime breathing due to increased pain. Vitals were stable, oxygensaturation adequate on 2L, glucose was checked. Patient was medicatedwith one tablet of PRN oxy. As patient sat he felt more comfortable andwanted to ambulate again. Patient was assisted with ambulating the podand then back to bed. Positioned for skin and comfort. Pain is betterunder control. Call light and belongings are within reach. Family is atbedside.1745- Patient is sitting up in the chair, he was able to ambulate the podagain with one person assist and a walker. Tolerating sips of clearliquids. Pain is managed and patient is feeling better since earlier.Call light and belongings are within reach.This note was completed by: Bentley Thompson RN [facility] PROGRESSon 04-24-2018 Protein mass conc HNO ID: [id number]: Stoney (Res) MubashirService: ColorectalAuthor Type: ResidentType: Progress NotesFiled: 04/24/2018 8:46 AMNote Text:Colorectal Surgery Progress NoteName: Ruth SmithMRN: [id number] al update:Overall, patient is doing well. No significant overnight issues noted.-Pain present, controlled with EMERGENCY MEDICINE MEDICAL DIRECTOR-Denies fevers, chills, chest pain, shortness of breath-No nausea/vomitingObjective Physical exam: BP 105/65 Pulse 76 Temp 36.6 ?C (97.8 ?F) (Oral) Resp 18 Ht 185.4 cm (6' 1 ) Wt 120 kg (264 lb 8.8 oz) SpO2 94% BMI 34.90 kg/m?- General: Patient is resting comfortably on exam, and is pleasant andcooperative. Is alert and oriented x3.- Abdomen: soft, appropriately tender, non distended. Dressing Clean, dry,intact. No erythema noted.- Chest: Non-labored, symmetrical respirations.Date 04/23/18699 - 04/24/1859 04/24/18699 - 04/25/18 0659Shift 8098-6835 5252-0372 4948-1807 24 Hour Total 1106-5035 3196-93165695-6215 24 Hour TotalINTAKE PO 40 60 100 PO 40 60 100 IV 1800 50 1031 2881 Magnesium IVPB 50 50 LR 1031 1031 OR Crystalloid intake (mL) 1800 1800 Other 400 400 PACU ([facility] Only) 400 400 Shift Total 6821 329 5799 3381OUTPUT Urine 350 151 366 3101 75 75 OR Urine Output 350 350 Tube Output ( Indwelling Urinary Catheter 04/23/18 1118 [place] 16Fr) 700 100 800 75 75 # of BMs Number of BMs 0 x 0 x Blood 50 50 Estimated Blood loss 50 50 Shift Total 400 559 491 4639 75 75Weight (kg) 120 120 120 120 120 120 120Medications:Current hospital medications:potassium chloride iv piggyback 20 mEq/100 mL 20 mEq INTRAVENOUS q 1 Hinsulin lispro injection (rapid acting) (HumaLOG) SUBCUTANEOUS q 6 H0.9% NaCl 2-10 mL 2-10 mL INTRAVENOUS q 12 Hmetoprolol succinate ER 50 mg tab(s) (TOPROL XL) 50 mg ORAL BIDtraZODone 50 mg tab(s) (DESYREL) 50 mg ORAL AT BEDTIMEcitalopram 20 mg tab(s) (CeleXA) 20 mg ORAL DAILYlactated ringers infusion 125 mL/hr INTRAVENOUS CONTINUOUSpotassium chloride ER 20-40 mEq tab(s) (K-DUR, KLOR-CON) 20-40 mEq ORALPRNpotassium chloride iv piggyback 20 mEq/100 mL 20 mEq INTRAVENOUS PRNmagnesium sulfate in water 2 g in sterile water 50 ml 2 g INTRAVENOUSPRN(NO DISPENSE)sodium phosphate 45 mmol in NaCl 0.9% 250 mL 45 mmol INTRAVENOUS PRN(NODISPENSE)ondansetr on (PF) 4 mg injection (ZOFRAN) 4 mg INTRAVENOUS q 6 H PRNacetaminophen 1,000 mg tab(s) (TYLENOL) 1,000 mg ORAL q 6 Hgabapentin 300 mg cap(s) (NEURONTIN) 300 mg ORAL q 8 Hketorolac 15 mg injection (TORADOL) 15 mg INTRAVENOUS q 6 H[START ON 04/25/2018] ibuprofen 800 mg tab(s) (MOTRIN) 800 mg ORAL q 8 HoxyCODONE IR 5-10 mg tab(s) (ROXICODONE) 5-10 mg ORAL q 4 H PRNHYDROmorphone EMERGENCY MEDICINE MEDICAL DIRECTOR 0.5 mg/mL in NaCl 0.9% 100 mL INTRAVENOUS CONTINUOUSalvimopan 12 mg cap(s) (ENTEREG) 12 mg ORAL BIDheparin 5,000 Units injection 5,000 Units SUBCUTANEOUS q 12 Hdextrose 40 % 15 g 15 g ORAL PRNglucagon 1 mg injection (GLUCAGEN) 1 mg INTRAMUSCULAR PRNdextrose 50% in water 25 mL syringe 12.5 g INTRAVENOUS PRNinsulin glargine 20 Units injection (long acting) (LANTUS) 20 UnitsSUBCUTANEOUS AT BEDTIMELabsCBCCBCRecent Labs 04/23/1818WBC 5.82 9.55 10.90HB 11.9* 12.7* 16.7HCT 36.4* 38.1* 51.6*PLT 68* 77* 123*BMPRecent Labs 04/23/1818NA 136 135 141K 3.1* 3.5 4.5CHLOR 96* 93* 102CO2 28 23 24BUN 14 12 16CREAT 0.77 0.75 0.90GLUC 140* 242* 81CA 8.1* 8.6 10.2LFT'sRecent Labs TPROT 7.9ALB 4.5ALT 29AST 58*ALKPHOS 60TBILI 1.2Assessment/Plan49 M, POD 1 s/p laparoscopic hand assisted sigmoid colectomy, with side toside stapled colorectal anastomosis. Clinically doing well.PLAN:-diet: NPO with limited sips-restart home psych meds-adjust insulin sliding scale-PT/OT today- Encourage incentive spirometry and ambulation- SCD's and H for DVT prophylaxis- Dispo: continue care on RNF?SIGNATURE: Stoney Crawford MD PATIENT NAME: Ruth SmithDATE: April 24, 2018 : 8:42 AM PAGER/CONTACT #: [phone] [facility] Phosphorus 04-24-2018 Phosphate mass conc 3.3 mg/dL Normal 2.5-4.5 [facility] Comment on above: Performed By: #### T SCR30 ####[facility] [place], [place] [id number] THERAPY NTon 04-24-2018 THERAPY NT HNO ID: [id number]: Ruby (Ot) GarnekService: Occupational TherapyAuthor Type: Occupational TherapistType: Therapy (PT/OT/Speech/Resp)Filed : 04/24/2018 2:20 PMNote Text:Occupational Therapy EvaluationSERVICE DATE: 04/24/2018SERVICE TIME: 1300 to 1325ROOM: [id number] CA, S/P Laparoscopic Left Duncan-Colectomy 04/23/18Recommended Discharge Disposition: HomeAnticipated Discharge Needs: Physical Assist at HomePhysical Assist at Home for: Laundry;Cleaning;Shoppin g;TransportationRecommen ded Discharge Equipment: Elastic Shoe Laces;Grab Bars-Shower;HandHeld Shower;Long Handled Shoe Horn;Long Handled Sponge;WheeledWalker;Marcellus fly;Sock Aide;Shower ChairOT Recommendations to Nursing: Transfer to Chair;To Bathroom for ADL?s/and or Toileting;OOB for meals;With assist of 1 personEquipment: Wheeled WalkerOT 6 Clicks Score: 19Precautions/Activity Restrictions: Abdominal;FallRisk;Lines /Tubes/Drains;Bed/Chair AlarmASSESSMENT: Pt is a 47 year old male admit with Colon CA, S/PLaparoscopic Left Duncan-Colectomy 04/23/18. Past Medical History Relevant toTherapy Includes: Bipolar Disorder, Colon CA, DM, HTN. For Complete PastMedical History Please Refer to Epic. Pt presents with decreased abilityto complete ADL's, and IADL's requiring assist at this time. Pt alsopresents with decreased activity tolerance, functional mobility, strength,and safety. Pt requires skilled OT services to address progression ofADL's, IADL's, functional mobility, strength, increase activitytolerance, and safety. Pt has adequate support and social structure forreasonably safe discharge home at current level. Pt is on disability, andenjoys watching sports. Pt has grandparents for support. Pt resides [place], [place], and plans to return home.Patient Disposition at Start of Session: OOB in Chair;Call Lopez inReach;Chair AlarmPatient Disposition at End of Session: OOB in Chair;Call Lopez inReach;Chair AlarmTolerated Full SessionOccupational Therapy Problem List: Pain;Safety Deficits;Impaired SelfCare;Decreased Activity Tolerance;Decreased Strength;Functional MobilityImpairmentPatien t /Caregiver Goals: Go HomeGoals for Plan of Care:Able to perform HEP with: IndependentUpper Body Dressing with: Modified IndependentLower Body Bathing with: Modified IndependentLower Body Dressing with: Stand By AssistanceToilet Hygiene with: Modified IndependentChair Transfer with: Stand By AssistanceToilet Transfer with: Stand By AssistanceTolerate (minutes of functional activity): 30Functional Activity with: Modified IndependentDemonstrate Competence With Education with: IndependentProgress Toward Goals: Progressing as expectedRehab Potential: GoodPLAN:Treatment Frequency (times per week): 2Treatment Duration (number): 1 WeeksTreatment Interventions: Education;Self Care / Home Management;EnergyConserv ation Training;Strengthening;F unctional Mobility TrainingPlan of Care developed with: PatientTREATMENT INTERVENTIONS:Therapy Diagnosis: Reduced mobility-other;Decreased activities of dailyliving (ADL);Muscle Weakness (generalized)Interventio ns Provided: Evaluation;Therapeutic Activity (54057)$ Evaluation-Low (21263) Billed Units: 1 unitTherapeutic Activity (63892) Treatment Minutes: 101 unitSkilled Intervention(s): Instruction in sit to stand technique with properhand placement and body positioning at edge of bed/chairInstruction in stand to sit technique with lower extremities touchingchair/bed and reaching back for surfaceEducation with Pt educated with role/benefit of OT services, dischargeoptions, fall precautions, walker safety, recommended DME/AE, and providedprinted material. Pt completed safe functional ambulation with DAVI mai. Pt required several rest breaks during ambulation. Pt noted tohold his breath during ambulation, and at rest, and was monitored withpulse-ox at above 90% for most of the ambulation, decreasing to 88%several times. Pt provided verbal cues for breathing, and was educatedwith deep breathing techniques. Pt educated with abdominal precautions,and provided multiple printed material.Total Timed Code Treatment Minutes: 10Total Treatment Time (minutes): 25FUNCTIONAL G CODE:OT 6 Clicks Score: 19 (04/24/18 1300)Self Care Current Status (G8987): CK (04/24/18 1300)Self Care Goal Status (G8988): CJ (04/24/18 1300)Based on clinical assessment and the score on the 6 Clicks FunctionalAssessment Tool, the G code and corresponding severity modifiers aredocumented above.SUBJECTIVE:Current Hospital Course: Chart reviewed; Colon CA, S/P Laparoscopic LeftHemi-Colectomy 04/23/18Reason for Occupational Therapy Consult: S/P Lap Duncan-ColectomyRelevant Past Medical History: Refer to the notePatient Report: I am OK Home EnvironmentPatient Lives With: Family (grandparents)Assistance Available: PRNEntry To Home: No StairsNumber Of Stairs To Bed/Bath: 0- one level aptTub/Shower Type: tub showerLaundry: grandmother completesEquipment Owned: Cane;Wheeled WalkerPrior Functional Level: Within Functional Limits;RequiredAssistanc e;History of FallsAssistance Required With: Laundry;Shopping;Transpo rtationPrior Functional Level Comments: amb without device, has a cane prn; IndepADL, indep cleaning,cooking, does not drive, his grandparents dolaundry/driving/shoppi ngOBJECTIVE:Responsivene ss: Alert;AwakeFollows Commands: 3-step CommandsVision Deficits: Wears glasses;Other: See Comment (for reading)CURRENT FUNCTIONAL STATUS:Current Activities of Daily Living Assist LevelFeeding Modified IndependentGrooming Modified IndependentBathing Upper Body Modified IndependentBathing Lower Body Moderate AssistanceDressing Upper Body Stand By AssistanceDressing Lower Body Moderate AssistanceToileting Minimal AssistanceInstrumental Activities of Daily Living Assist LevelMeal/Beverage PrepLight CleaningLaundryMedicatio n Management with StrategiesFunctional Mobility Assist LevelRollingSupine to SitSit to SupineScootingSit to Stand Minimal AssistanceStand to Sit Minimal AssistanceBed to Chair Minimal Assistance (Pt ambulated unit with min assist formultiple lines/safety)Wheeled WalkerToilet/CommodeFunc tional Mobility Minimal Assistance Wheeled WalkerBalance: Static Sitting;Dynamic Sitting;Static Standing;Dynamic StandingStatic Sitting Balance: SupervisionDynamic Sitting Balance: SupervisionStatic Standing Balance: Minimal AssistanceDynamic Standing Balance: Minimal AssistanceActivity Tolerance: (Pt required rest breaks during ambulation)Please see discipline specific clinical documentation flowsheet forcomplete details for this therapy evaluation/treatment.SIG NATURE: Ruby Perez OTR/L PATIENT NAME: Ruth SmithDATE: April 24, 2018 : 2:15 PM Normal [facility] THERAPY NT HNO ID: [id number]: Yady (Pt) KilbaneService: Physical TherapyAuthor Type: Physical TherapistType: Therapy (PT/OT/Speech/Resp)Filed : 04/24/2018 2:15 PMNote Text:Physical Therapy EvaluationSERVICE DATE: 04/24/2018SERVICE TIME: 1320 to 1345ROOM: [id number] Discharge Disposition: HomeAnticipated Discharge Needs: Physical Assist at HomePhysical Assist at Home for: Laundry;Cleaning;Shoppin g;TransportationPT Recommendations to Nursing: Ambulate with device;To bathroom;Inhalls;With assist of 1 personDevice: Wheeled WalkerPT 6 Clicks Score: 21Precautions/Activity Restrictions: Abdominal;FallRisk;Lines /Tubes/Drains;Bed/Chair AlarmASSESSMENT : Patient's impairments as related to Physical Therapy include decreasedstrength/endura nce, impaired balance, functional mobility and self careperformance. Patient may benefit from Physical Therapy in the hospital inorder to continue to progress functional mobility and ADL skills. Patienthas adequate support and social structure for reasonably safe dischargehome at current level.Patient Disposition at Start of Session: OOB in Chair;Chair AlarmPatient Disposition at End of Session: OOB in Chair;Chair AlarmTolerated Full SessionPhysical Therapy Problem List: Functional Mobility Impairment;DecreasedStre ngth;Education Deficit;Safety Deficits;Decreased ActivityTolerance;Impair ed Self CarePatient /Caregiver Goals: Go HomeGoals for Plan of Care:Able to perform HEP with: IndependentRolling with: SupervisionTransfer supine to/from sit with: SupervisionTransfer sit to/from stand with: SupervisionAmbulate with: SupervisionDistance: 300Device: Wheeled WalkerRehab Potential: GoodPLAN:Treatment Frequency (times per week): 2 Current admissionTreatment Interventions: Education;Self Care / HomeManagement;Strengthe yanelis;Functional Mobility TrainingPlan of Care developed with: PatientTREATMENT INTERVENTIONS:Therapy Diagnosis: Reduced mobility-other;Muscle Weakness(generalized);Ge neral symptoms and signs-otherInterventions Provided: Evaluation;Gait Training (31076)$ Evaluation-Low (09202) Billed Units: 1 unitGait Training (95029) Treatment Minutes: 101 unitSkilled Intervention(s): Instruction in sit to stand technique with properhand placement and body positioning at edge of bed/chair, Instruction instand to sit technique with LE's touching chair/bed and reaching back forsurface, Instruction in sequencing, gait pattern and Instruction incorrection of gait deviations, sequencing and posture, cues for breathingtechnique with activity and importance of upright posture during gait;pulse ox monitored during session; educated in abdominal precautions asrelated to functional mobility; abd pillow made for patientTotal Timed Code Treatment Minutes: 10Total Treatment Time (minutes): 25FUNCTIONAL G CODE:PT 6 Clicks Score: 21 (04/24/18 1320)Mobility: Walking and Moving Around Current Status (G8978): CJ ()Mobility: Walking and Moving Around Goal Status (G8979): CJ ()Based on clinical assessment and the score on the 6 Clicks FunctionalAssessment Tool, the G code and corresponding severity modifiers aredocumented above.SUBJECTIVE:Current Hospital Course: Chart reviewed; s/p laparoscopic hand assistedsigmoid colectomy, with side to side stapled colorectal anastomosisReason for Physical Therapy Consult : eval and treat s/p lap hemicolectomyRelevant Past Medical History: colon cnacer,bipolar,HTN,DM,ci rrhosis,lumbar painPatient Report: pt pleasant and cooperative- My back hurts. Home EnvironmentPatient Lives With: Family (grandparents)Assistance Available: PRNEntry To Home: No StairsNumber Of Stairs To Bed/Bath: 0- one level aptTub/Shower Type: tub showerLaundry: grandmother completesEquipment Owned: Cane;Wheeled WalkerPrior Functional Level: Within Functional Limits;RequiredAssistanc e;History of FallsAssistance Required With: Laundry;Shopping;Transpo rtationPrior Functional Level Comments: amb without device, has a cane prn; IndepADL, indep cleaning,cooking, does not drive, his grandparents dolaundry/driving/shoppi ngOBJECTIVE:CURRENT FUNCTIONAL STATUS:Current Functional Mobility Assist Level Additional InformationRollingSupine to SitSit to SupineScooting Stand By AssistanceSit to Stand Stand By AssistanceStand to Sit Stand By AssistanceBed to ChairToilet/CommodeGait Contact Guard Assistance Gait Device: Wheeled Walker Gait Distance (feet): 200StairsCurb StepCar TransferGeneral Gait Deviations: Jesusita decreased;Flexed trunk posture;Steplength decreased (3 standing rest breaks)Balance: Static Standing;Dynamic StandingStatic Standing Balance: Stand By AssistanceDynamic Standing Balance: Contact Guard AssistancePlease see discipline specific clinical documentation flowsheet forcomplete details for this therapy evaluation/treatment.SIG NATURE: Yady Cloud PT PATIENT NAME: Ruth SmithDATE: April 24, 2018 : 2:13 PM [facility] ANES Callum 04-23-2018 ANES POST HNO ID: [id number]: Jason Finkervice: AnesthesiologyAuthor Type: AnesthesiologistType: Anesthesia PostOpFiled: 04/23/2018 4:47 PMNote Text:POST ANESTHESIA EVALUATION NOTESERVICE DATE: 04/23/2018SERVICE TIME:: 1968Vitals: 04/23/1814Temp: 37.1 ?C (98.8 ?F) 36 ?C (96.8 ?F) 04/23/1815BP: 146/85 161/87 160/94 161/82 04/23/1815Pulse: 93 95 99 97 04/23/1815Resp: 15 23 18 17 04/23/1815SpO2: 97% 97% 95% 94%Validated Vital Signs: YesPOST ANES STATUS: No apparent anesthetic complications. The patient isappropriately hydrated with stable respiratory and cardiovascular status.Patient has safe and adequate airway control. The patient has appropriatepain relief and no significant post operative nausea or vomiting. Thepatient has achieved baseline mental status.Intra-Operative Events: No Significant Anesthesia EventsFurther assessment by Anesthesia Service: NoneOther Remarks:SIGNATURE: Jason Kimble MD PATIENT NAME: Ruth SmithDATE: April 23, 2018 : 4:47 PM PAGER/CONTACT #: [facility] ANES PREOPon 04-23-2018 ANES PREOP HNO ID: [id number]: Jason Finkervice: AnesthesiologyAuthor Type: AnesthesiologistType: Anesthesia PreOpFiled: 04/23/2018 11:36 AMNote Text:REGIONAL ANESTHESIOLOGY DAY OF SURGERY NOTEPATIENT NAME: Ruth SmithMRN: [id number]: 1970Procedure(s) (LRB):LAPAROSCOPIC HAND ASSISTED COLECTOMY SIGMOID (Left)Surgeon(s):Des Jain body mass index is 35.13 kg/m? as calculated from the following: Height as of 04/06/18: 182.9 cm (6'). Weight as of 04/06/18: 117.5 kg (259 lb).ASA Class: 4Adequate NPO status: YesAllergies:ALLERGIESNo Known AllergiesAirway Assessment: MP 3; Neck ROM: Limited Flexion and Extension; AirwayEvaluation: Short Neck, Thick neck, Short Thyromental Distance and SmallMouth OpeningDentition: Poor dentitionMissing tooth upper left and upper rightBroken tooth upper left and upper rightSymptoms of Sleep Apnea: Probable but not formally diagnosedMost recent lab results:Hemoglobin 16.7 04/06/2018Hematocrit 51.6 04/06/2018Potassium 4.5 04/06/2018Platelet Count 123 04/06/2018Creatinine 0.90 04/06/2018EKG:unchanged from previous tracingsVitals: BP: 118/74Pulse: 87Resp: 16Temp: 37.1 ?C (98.8 ?F)TempSrc: Temporal ArterySpO2: 95%Previous Anesthesia: No history of adverse event Family history ofanesthetic problems: NoneAdditional Physical Exam:Lungs: Lungs clear to auscultation. Good diaphragmatic excursion.Cardiac: Normal S1 and S2; no rubs, no murmurs and no gallopsAdditional pertinent findings: N/AOther Medical Problems/ Important Considerations:Denies chest pain and SOB with exertion.Chronic Beta Trung medication administered within 24 hours: N/AAnesthetic risks, benefits, alternatives, personnel and consent discussed:YesPatient agrees to proceed: YesBlood Products: Not anticipated for this procedureAnesthetic Plan: General ETT; Standard ASA MonitorsPain Management Plan: ROOT ProtocolEPIC Chart ReviewACTIVE PROBLEM LISTColon Cancer (Hcc)Diabetes (Hcc)HypertensionPAST MEDICAL HISTORYDiagnosis Date- Bipolar 1 disorder (HCC)- Cirrhosis (HCC)- Colon cancer (HCC)- Diabetes (HCC)- Hypertension- SplenomegalyPAST SURGICAL HISTORYProcedure Laterality Date- BACK SURGERY HX Lumbar L5- COLONOSCOPY 02/22/2018- EGD 02/22/2018- PAST SURGICAL HISTORY OF left foot surgery- PAST SURGICAL HISTORY OF back injectionsFAMILY HISTORYProblem Relation Age of Onset- Heart Attack Father at 59. Multiple CABG, defibSocial History:Social HistorySubstance Use Topics- Smoking status: Former Smoker Types: Cigarettes Quit date: 2010- Smokeless tobacco: Never Used- Alcohol use NoNo current facility-administered medications on file prior to encounter.Current Outpatient Prescriptions on File Prior to Encounter:potassium chloride ER (K-DUR, KLOR-CON) 20 mEq tablet Take 20 mEq by mouthtwice daily.multivitamin tablet Take 1 tablet by mouth once daily.metoprolol succinate ER (TOPROL XL) 50 mg 24 hr tablet Take 50 mg by mouthtwice daily.meloxicam (MOBIC) 15 mg tablet Take 15 mg by mouth as needed.insulin glargine,hum.rec.anlog (LANTUS SUBCUTANEOUS) Inject 40 Unitssubcutaneously.isabella gliptin-metFORMIN (JENTADUETO) 2.5-1,000 mg tab Take by mouth.hydroCHLOROthiazid e (HYDRODIURIL, ESIDRIX) 25 mg tablet Take 25 mg bymouth once daily.Fenofibrate (LOFIBRA) 160 mg tablet Take 160 mg by mouth once daily.citalopram (CELEXA) 20 mg tablet Take 20 mg by mouth once daily.pantoprazole DR (PROTONIX) 40 mg tablet Take 40 mg by mouth once daily.gabapentin (NEURONTIN) 300 mg capsule Take 300 mg by mouth three timesdaily.traZODone (DESYREL) 50 mg tablet Take 50 mg by mouth daily at bedtime.loperamide (IMODIUM) 2 mg cap(s) Take 2 mg by mouth four times daily asneeded.insulin lispro (HUMALOG KWIKPEN INSULIN SUBCUTANEOUS) Inject 18 Unitssubcutaneously.dicy clomine (BENTYL) 10 mg capsule Take 20 mg by mouth four times daily.Inpatient medications reviewed in [facility].I have interviewed and examined the patient. I have reviewed the medicalrecord and/or the pre-anesthesia evaluation, pertinent labs, and testresults.Significant changes in the patient's condition since the History andPhysical, not otherwise documented in primary service progress notes: NoThis contains updated information obtained within 48 hours ofSurgery/Procedure.SIGN ATURE: Jason Kimble MD PATIENT NAME: Ruth SmithDATE: April 23, 2018 : 11:35 AM PAGER/CONTACT #: [facility] BRIEF OP NOTon 04-23-2018 BRIEF OP NOT HNO ID: [id number]: Jason GarciaService: ColorectalAuthor Type: ResidentType: Brief Op NoteFiled: 04/23/2018 2:23 PMNote Text:BRIEF OPERATIVE NOTE - COLORECTAL SURGERYLog ID: [id number]/Procedure Date: 04/23/2018Incision/Proced ure Start Time: 11:21 AMIncision Close/Procedure End Time: 2:15 PMSurgeon(s) and Pearl Cutter(s):Surgeon(s) and Role: * Des Flores - Primary * Jason Garcia - FellowNo Additional StaffProcedures and Anesthesia:Procedure(s) and Anesthesia Type: * LAPAROSCOPIC HAND ASSISTED COLECTOMY SIGMOID - General * SIGMOIDOSCOPY FLEXIBLE - GeneralStoma Type: N/AFindings: laparoscopic hand assisted splenic flexure Resection leftbranch of the middle colic with the left branch of the MARGO, side to sidecolonic stapled anastomosisEstimated Blood Loss: 50 mlSpecimens: colonDiagnosis Code(s): Pre-Op Diagnosis Codes: * Colon cancer (HCC) [C18.9]Postop Diagnosis: colon polypDrains: NoneWound Classification: Class 2, operative wound clean-contaminated,gastr ointestinal tract entered without significant spillageComplications: NoneSIGNATURE: Jason Garcia MD PATIENT NAME: Ruth SmithDATE: April 23, 2018 : 2:22 PM PAGER/CONTACT #: [phone] Normal [facility] Basic Metabolic Panlon 04-23 Anion gap 3 molar conc 19 mmol/L High 9-18 [facility] Comment on above: Performed By: #### T SCR30 ####[place] [phone] Calcium mass conc 8.6 mg/dL Normal 8.5-10.5 [facility] Comment on above: Performed By: #### T SCR30 ####[place] [phone] Chloride molar conc 93 mmol/L Low 98-110 [facility] Comment on above: Performed By: #### T SCR30 ####[phone] CO2 molar conc 23 mmol/L Normal 23-32 [facility] Comment on above: Performed By: #### T SCR30 ####[phone] Creatinine mass conc 0.75 mg/dL Normal 0.70-1.40 [facility] Comment on above: Performed By: #### T SCR30 ####[place] [phone] eGFR- Amer. >60 Normal >60 [facility] Comment on above: Performed By: #### T SCR30 ####[phone] GFR/1.73 sq M predicted among non-blacks MDRD vol rate/area (S/P/Bld) mL/min/{1.73_m2} Normal >60 [facility] Comment on above: Performed By: #### T SCR30 ####[place] [phone] Glucose mass conc 242 mg/dL High 65-100 [facility] Comment on above: Performed By: #### T SCR30 ####[place] [phone] Potassium molar conc 3.5 mmol/L Normal 3.5-5.0 [facility] Comment on above: Performed By: #### T SCR30 ####[place] [phone] Sodium molar conc 135 mmol/L Normal 135-146 [facility] Comment on above: Performed By: #### T SCR30 ####[place] [phone] Urea nitrogen mass conc 12 mg/dL Normal 10-25 [facility] Comment on above: Performed By: #### T SCR30 ####[place] [phone] CBC and Differentialon 04-23 Abs Baso <0.03 Normal <0.11 [facility] Comment on above: Performed By: #### T SCR30 ####[place] [phone] Abs [place] 0.69 k/uL Normal <0.87 [facility] Comment on above: Performed By: #### T SCR30 ####[place] [phone] Abs Neut 8.24 k/uL High 1.45-7.50 [facility] Comment on above: Performed By: #### T SCR30 ####[place] [phone] Basophils/100 WBC Auto (Bld) 0.1 % Normal [facility] Comment on above: Performed By: #### T SCR30 ####[place] [phone] DTYPE Auto Diff Normal [facility] Comment on above: Performed By: #### T SCR30 ####[phone] Eosinophils Auto #/vol (Bld) 10*3/uL Normal <0.46 [facility] Comment on above: Performed By: #### T SCR30 ####[phone] Eosinophils/100 WBC Auto (Bld) 0.0 % [facility] Comment on above: Performed By: #### T SCR30 ####[place] [phone] Erythrocyte distribution width Auto Ratio (RBC) 15.0 % Normal 11.5-15.0 [facility] Comment on above: Performed By: #### T SCR30 ####[place] [phone] Hematocrit Auto Volume Fraction (Bld) 38.1 % Low 39.0-51.0 [facility] Comment on above: Performed By: #### T SCR30 ####[place] [phone] Hemoglobin mass conc (Bld) 12.7 g/dL Low 13.0-17.0 [facility] Comment on above: Performed By: #### T SCR30 ####[phone] Lymphocytes Auto #/vol (Bld) 0.61 10*3/uL Low 1.00-4.00 [facility] Comment on above: Performed By: #### T SCR30 ####[phone] Lymphocytes/100 WBC Auto (Bld) 6.4 % [facility] Comment on above: Performed By: #### T SCR30 ####[place] [phone] MCH Auto Entitic mass (RBC) 28.8 pG Normal 26.0-34.0 [facility] Comment on above: Performed By: #### T SCR30 ####[place] [phone] MCHC Auto mass conc (RBC) 33.3 g/dL Normal 30.5-36.0 [facility] Comment on above: Performed By: #### T SCR30 ####[place] [phone] MCV Auto Entitic volume (RBC) 86.4 fL Normal 80.0-100.0 [facility] Comment on above: Performed By: #### T SCR30 ####[place] [phone] Monocytes/100 WBC Auto (Bld) 7.2 % Normal [facility] Comment on above: Performed By: #### T SCR30 ####[place] [phone] Neutrophils/100 WBC Auto (Bld) 86.3 % Normal [facility] Comment on above: Performed By: #### T SCR30 ####[place] [phone] Platelet mean volume Auto Entitic volume (Bld) <> Normal 9.0-12.7 [facility] Comment on above: Performed By: #### T SCR30 ####[place] [phone] Platelets Auto #/vol (Bld) 77 10*3/uL Low 150-400 [facility] Comment on above: Result Comment: Revi ewedSample checked for a clot. Performed By: #### T SCR30 ####[place] [phone] RBC Auto #/vol (Bld) 4.41 10*6/uL Normal 4.20-6.00 [facility] Comment on above: Performed By: #### T SCR30 ####[facility] [place] [address] [phone] WBC Auto #/vol (Bld) 9.55 10*3/uL Normal 3.70-11.00 [facility] Comment on above: Performed By: #### T SCR30 ####[facility] [place], [place] [phone] HISTORY PHYSICALon 8 HISTORY PHYSICAL HNO ID: [id number]: Jason Galvez (Res) JoseService: ColorectalAuthor Type: ResidentType: HANDPFiled: 04/23/2018 10:10 AMNote Text:UPDATED HISTORY AND PHYSICAL EXAMINATIONSERVICE DATE: 04/23/2018SERVICE TIME: 10:09 AMPHYSICAL EXAM MUST BE COMPLETED ON ADMISSIONThe History and Physical (completed in the past 30 days) has been reviewedand the patient has been examined. The contents accurately reflect thepatient's condition with the following additions or revisions since theHANDP was completed.Examination indicates no changes.This HANDP can be [facility].SIGNATURE: Jason Garcia MD PATIENT NAME: Ruth SmithDATE: April 23, 2018 : 10:09 AM PAGER: Normal [facility] Magnesiumon 04-23-2018 Magnesium mass conc 1.4 mg/dL Low 1.7-2.6 [facility] Comment on above: Performed By: #### T SCR30 ####[facility] [place], [place] [phone] NURSING PROGon 04-23-2018 Protein mass conc HNO ID: [id number]: Azul (Rn) DANIA Tobarervice: (none)Author Type: Registered NurseType: Nursing Progress NoteFiled: 04/23/2018 9:43 PMNote Text: Nursing Progress NotePatient Name: Ruth SmithMRN: [id number] Location: [facility]3A03/[id number]____ Daily Note: Text page sent to [facility] regarding pt Mg level of 1.4 thisevening. Will await further orders. Safety maintained and call lightwithin reach. Will continue to monitor.This note was completed by: Azul Tobar RN [facility] Protein mass conc HNO ID: [id number]: Bentley Salgado) Brisa Thompsonice: (none)Author Type: Registered NurseType: Nursing Progress NoteFiled: 04/23/2018 7:17 PMNote Text: Nursing Progress NotePatient Name: Ruth SmithMRN: [id number] Location: [place] [address]/[id number]____ Daily Note:04/23/181814- Patient arrived to room 303 from PACU ataroximately 1814, his grandparents are at bedside. Patient is alert andoriented times three, complaining of 10/10 pain and grunting. EMERGENCY MEDICINE MEDICAL DIRECTOR hasbeen ordered but not started. Called for a EMERGENCY MEDICINE MEDICAL DIRECTOR pump. Started fluids perorders. Hand grasps and push/pulls are equal bilaterally, pulses arepalpable with good movement. Patient complains of chronic numbness andtingling to bilateral lower extremities. Generalized, non pitting edemanoted to bilateral lower extremities. Lungs are diminished throughout;patient is 92-94% on 3L. Abdomen is softly distended, bowel sounds arefaint. Midline incision has small amount of shadowing, five lap sites arenoted covered with band aids. Palacios in place draining clear, lita urine. Oriented to room, call light and belongings are within reach.This note was completed by: Bentley Thompson RN [facility] Protein mass conc HNO ID: [id number]: Brennen Salgado) DANIA Beyervice: NursingAuthor Type: Registered NurseType: Nursing Progress NoteFiled: 04/23/2018 12:13 PMNote Text: Nursing Progress NotePatient Name: Rtuh SmithMRN: [id number] Location: [facility] OR POOL/[facility] OR POOL Daily Note:Patient's family updated at 11:42 am about status of procedureper Dr. Higgins note was completed by: Brennen Bey RN [facility] OPERATIVE NOon 04-23-2018 OPERATIVE NO HNO ID: [id number]: Des Canalesrvice: ColorectalAuthor Type: PhysicianType: Operative ReportFiled: 04/24/2018 9:26 PMNote Text:[facility] - Operative ReportHENRUTH HERNANDEZDOB: 1970 AGE: 47 SEX: MMRN: [id number] CSN: [id number] SVC: GENS LOCATION: [id number] PHYSICIAN: Des Flores M.D.DATE OF PROCEDURE: 04/23/2018PREOPERATIVE DIAGNOSIS: T1 colon cancer.POSTOPERATIVE DIAGNOSIS: Same.NAME OF OPERATION: Laparoscopic left hemicolectomy.SURGEON: Des Flores M.D.WHITE SOURER: Vonda Fleming.ANESTHESIA:EBL: 10.IV FLUIDS: Per Anesthesia.INDICATIONS: The patient is a morbidly obese gentleman with aquestionable close margin on T1 cancer and a polyp, and we offeredendoscopic surveillance versus surgical resection, and he wasinterested in surgical resection because of the risk of lymph nodeinvolvement and his young age. The procedure was somewhat complicatedbecause of morbid obesity but overall went very well.PROCEDURE: The patient was brought to the operating room and placed inlithotomy position. Pneumoperitoneum was established with aninfraumbilical 10 mm balloon port. Three 5 mm ports were placed in theleft mid, right upper, and right lower quadrants. Dissection firstcommenced after identifying the tattoo at the splenic flexure. Wemobilized the entire left colon with monopolar cautery, entered thelesser sac, and mobilized the entire distal transverse colon, and thenat this point, we transected the left branch of the middle colic arteryand then the left colic artery and took the mesentery between the 5 mmLigaSure. Because of his size, we stented the extraction site up toabout 7 centimeters and brought the specimen out. We passed it offthe field. We then brought the two colonic ends in close proximityand did a tisk-jg-tmau anastomosis with the aid of a blue stapler andclosed the common enterotomy with a TA 90 stapler. 0 Vicryl was used atthe crotch of the anastomosis to oversew the TA line.He was then transferred to Recovery in good condition.Des Flores M.D.SurgeryBC:[id number]: 04/23/2018 18:49:02T: 04/24/2018 04:56:25Job #: [id number] [facility] PROGRESSon 04-23-2018 Protein mass conc HNO ID: [id number]: Stoney (Res) MubashirService: ColorectalAuthor Type: ResidentType: Progress NotesFiled: 04/23/2018 8:12 PMNote Text: Surgery Post-Op CheckName: Ruth SmithMRN: [id number] 0 s/p laparoscopic hand assisted sigmoid colectomy, with side to sidestapled colorectal anastomosisSUBJECTIVE:-P atient doing well-Pain present, advised on EMERGENCY MEDICINE MEDICAL DIRECTOR use-Denies fevers, chills, chest pain, shortness of breath-No nausea/vomitingOBJECTIVE :BP 133/71 Pulse 102 Temp 36.9 ?C (98.4 ?F) (Oral) Resp 20 Ht185.4 cm (6' 1 ) Wt 120 kg (264 lb 8.8 oz) SpO2 93% BMI 34.90kg/m?Intake/Output Summary (Last 24 hours) at 04/23/18 1936Last data filed at 04/23/18 1800 Gross per 24 hourIntake 2200 mlOutput 700 mlNet 1500 ml- General: Patient not in acute distress, is resting comfortably on exam,and is pleasant and cooperative. Is alert and oriented x3.- Abdomen: soft, appropriately tender, non distended. Dressing clean,dry, intact.- Chest: Non-labored, symmetrical respirations.- CVS: Pulse RRRASSESSMENT/PLAN:Pain appropriately managed on current regimen.-Continue routine post-op care Stoney Crawford, MDPGY-1 General SurgeryPager [phone], Fdwegtvzx 2017, 7:36 PM 6pm to 6 am, and on weekends, please page general surgery on-call [phone] [facility] PT EDon 04-23-2018 PT ED HNO ID: [id number]: Padmini (Rn) Fortino RNService: NursingAuthor Type: Registered NurseType: Patient EducationFiled: 04/23/2018 8:42 AMNote Text:PATIENT EDUCATION TOPIC: PROCEDURE / SURGERY: Pre-op Teaching:ProtocolsPATIEN T NAME: Ruth SmithMRN: [id number] LOCATION: OR POOL/FV OR POOLREADINESS TO LEARNCOGNITIVE ABILITY: Alert and orientedMOTIVATION TO LEARN: InterestedFAMILY SUPPORT: Unable to assess - Family not presentINSTRUCTION PROVIDED TO: PatientPATIENT LEARNS BEST BY: Individual InstructionFACTORS AFFECTING LEARNING: NonePHYSICAL LIMITATIONS AFFECTING LEARNING: NoneLEARNING RESPONSEDIAGNOSIS: ADULT: surgeryPATIENT/FAMILY RESPONSE: Verbalizes understanding of: PRE-OPERATIVEINSTRUCTION S-Correct action to take to follow pre-operative instructionsMETHOD OF INSTRUCTION: Individual instructionFOLLOW-UP PLAN: Complete - No need for follow-upINSTRUCTIONAL AIDS USED: NASUPPLEMENTAL MATERIAL PROVIDED TO PATIENT: NoneREFERRAL (RECOMMENDATION): NoneElectronically Signed By: Padmini Freitas, [id number]} [facility] Phosphoruson 04-23-2018 Phosphate mass conc 2.5 mg/dL Normal 2.5-4.5 [facility] Comment on above: Performed By: #### T SCR30 ####[facility] [place], [place] [phone] SURGICAL PATHOLOGYon 018 SURGICAL PATHOLOGY [facility]: [id number] Physician: DES FLORES MD ____FINAL DIAGNOSIS1. Omentum, omentectomy (A) - Benign fibroadipose tissue.2. Left colon, resection (B) - Tattoo ink and focal foreign body giant cellreaction consistent with previous biopsy site, negative for residualinvasive adenocarcinoma (see synoptic report).- One tubular adenoma (see comment).- Thirteen lymph nodes, negative for malignancy (0/).TRINIDAD/lelo 04/26/20184248ANNYQBK2. The margins are negative for dysplasia.SYNOPTIC REPORT OF SHARMA PATHOLOGIC FINDINGSLEFT COLON: COLON AND RECTUM:RESECTION, INCLUDINGTRANSANAL DISK EXCISION OF RECTAL NEOPLASMSWORKSHEET: Procedure: Left hemicolectomyTumor Site: Cannot be determined: No evidence of residual invasive adenocarcinomaTumor Size: Cannot be determined: No evidence of residual invasive adenocarcinomaMacroscopi c Tumor Perforation: Not identifiedHistologic Type: AdenocarcinomaHistologic Grade: GX: Cannot be assessedTumor Extension: No evidence of primary tumorMargins: All margins are uninvolved by invasive carcinoma, high-gradedysplasia, intramucosal adenocarcinoma, and adenoma Margins examined: proximal, distal, mesenteric, and circumferential(radial) marginsProximal Margin: Uninvolved by invasive carcinomaDistal Margin: Uninvolved by invasive carcinomaCircumferential Radial Margin: Uninvolved by invasive carcinomaMesenteric Margin: Uninvolved by invasive carcinomaTreatment Effect: No known presurgical therapyLymphovascular Invasion: Not identifiedPerineural Invasion: Not identifiedTumor Deposits: Not identifiedRegional Lymph Nodes: Number of nodes involved: 0 Number of nodes examined: 13 Pathologic Stage Classification (pTNM,AJCC 8th ed)TNM Descriptors: Not applicablePathologic Staging (pTNM): pTX: Primary tumor cannot be assessedRegional Lymph Nodes (pN): pN0: No regional lymph node metastasisDistant Metastasis (pM): Not applicable/Not confirmed pathologically in this caseAncillary Studies: Not Performed Iván Doyle M.D.(Electronic Signature) SPECIMEN SUBMITTEDA: OMENTUM B: LEFT COLON CLINICAL DATACOLON CANCER GROSS DESCRIPTIONA. Received in formalin designated omentum is an irregularly-shapedsegmen t of fibrofatty tissue measuring 29 x 15 x 1.6 cm. The specimen isserially sectioned and palpated. No masses or nodules are grosslyidentified. Skimmer sections are submitted in two cassettes.B. Received in formalin designated left colon are two unoriented segmentsof bowel. The first segment of bowel measures 18.7 cm in length andaverages 6.2 cm in circumference. Staple margins are present at both endswhich are removed and one margin is inked blue and the opposing margin isinked orange. Examination of the mucosal surface reveals a puckered areameasuring 0.5 x 0.5 cm located 10 cm from the orange margin and 9.3 cm fromthe blue margin. The puckered area is located on the posterior aspect ofthe lumen. Sectioning of the puckered area does not reveal a mass grossly.There is tattoo ink within the wall of the bowel within the puckered area.The closest circumferential soft tissue margin is located 3.3 cm from thepuckered area, and the closest mesenteric soft tissue margin is located 6.8cm from the puckered area. Additional examination of the mucosal surfacereveals a pedunculated polyp measuring 0.5 x 0.3 cm located 3.6 cm from theorange margin, 5.9 cm from the puckered area. The polyp grossly onlyinvolves the mucosal surface. The remainder of the mucosal surface is tanwith normal mucosal ridges. The wall of the bowel averages 0.6 cm inthickness. The serosal aspect is alcantara and smooth. The second segment ofbowel measures 8.1 cm in length by 7.8 cm in circumference. Both marginshave staple lines present, which are removed. One margin is inked green.The opposing margin is inked red. There is a white suture present on theexternal surface located 1 cm from the red margin. There are no grossabnormalities identified at the area of suture. The mucosal surface istan-pink with normal to irregular mucosal ridges. No polyps or masses areidentified. The wall of the bowel averages 0.4 cm in thickness. The serosalaspect is alcantara with rare adhesions. Sectioning of the attached soft tissuereveals multiple alcantara-pink lymph nodes measuring up to 0.6 cm in greatestdimension. Skimmer sections are submitted as follows: [id number] blue margin first segment of bowel, B2 perpendicular orangemargin first segment of bowel, B3 perpendicular circumferential soft tissuemargin first segment of bowel, B4 perpendicular mesenteric soft tissuemargin first segment of bowel, B5-B6 puckered area first segment of boweltotally submitted, B7 area between puckered area and polyp first segment ofbowel, B8 polyp first segment of bowel totally submitted, B9 3 cm from theorange margin first segment of bowel, B10 5 cm from the blue margin firstsegment of bowel, B11-B16 one lymph node bisected from first segment ofbowel totally submitted per cassette, B17 three lymph nodes from firstsegment of bowel totally submitted, B18 four possible lymph nodes firstsegment of bowel totally submitted, B19 second segment of bowel area ofsuture totally submitted in relation to perpendicular red margin, [id number] green margin second segment of bowel, B21 4 cm from bothmargins second segment of bowel, B22 rare adhesions serosal aspect secondsegment of bowel.Sabra 04/24/2018 Gross examination performed at [facility], [address] [place] [address] of Report: 04/26/2018Date of Procedure: 04/23/2018Date of Receipt: 04/24/2018Submitted by: DES FLORES MDLocation: [id number] interpretation performed at [facility], [address] [place] [address]. Normal [facility] Comment on above: Performed By: #### P ATHS ####[place] [address] Troponin Ton 04-23-2018 Troponin T.cardiac mass conc ug/L Normal 0.000-0.02 9 [facility] Comment on above: Performed By: #### T SCR30 ####[place] [phone] NURSING PROGon 04-12-2018 Protein mass conc HNO ID: [id number]: Adry (Rn) DANIA Orrervice: NeurosurgeryAuthor Type: Registered NurseType: Nursing Progress NoteFiled: 04/12/2018 2:07 PMNote Text:PACC Nurse Progress NoteHistory AND Physical:PACC Visit Date: 3-05-23Bhkjyfho HANDP Date: N/AED visit Date: N/AOutside HANDP Scanned Date: N/ALabs Within Last 6 Months:BMP/CMP: Date 04-05 scannedImaging Within Last 12 Months:N/ACardiac Testing:EKG in last 12 Months: Yes: Date: 04-06-18, Comment: epicBMI Percentile (PEDS):N/ARisk Assessment:N/AAnesthesia Review:N/ANarrative:N/AP re-op Considerations:diabeticC knight Check:JOHN PAUL [facility] 2017 2:06 PM [facility] Confirm Blood Typeon 018 ABO/RH(D) Positive [facility] Comment on above: Performed By: #### C ONABO ####[place] [phone] Performed By: #### T SCR30 ####[place] [phone] Type and SCR (30D)on 018 Antibody Screen Negative [facility] Comment on above: Performed By: #### T SCR30 ####[place] [phone] HOSPon 03-21-2018 HOSP Patient:Carlo Smith: Height:6' 0 (1.829 m)Weight:259 lb (117.482 kg)Outpatient Medications as of 04/23/18:azithromycin (ZITHROMAX) 250 mg tabletVITAMIN D 1,000 unit capoxyCODONE IR (ROXICODONE) 10 mg tabDHEA 50 mg tabtraZODone (DESYREL) 50 mg tabletpotassium chloride ER (K-DUR, KLOR-CON) 20 mEq tabletmultivitamin tabletmetoprolol succinate ER (TOPROL XL) 50 mg 24 hr tabletmeloxicam (MOBIC) 15 mg tabletloperamide (IMODIUM) 2 mg cap(s)insulin glargine,hum.rec.anlog (LANTUS SUBCUTANEOUS)linagliptin -metFORMIN (JENTADUETO) 2.5-1,000 mg tabhydroCHLOROthiazide (HYDRODIURIL, ESIDRIX) 25 mg tabletinsulin lispro (HUMALOG KWIKPEN INSULIN SUBCUTANEOUS)Fenofibrate (LOFIBRA) 160 mg tabletdicyclomine (BENTYL) 10 mg capsulecitalopram (CELEXA) [address] (PROTONIX) 40 mg tabletgabapentin (NEURONTIN) 300 mg capsuleAdmission/Clinic Administered Medications as of 04/23/18:0.9% NaCl 2-10 mLheparin 5,000 Units injectioncefTRIAXone iv piggyback 2 g in dextrose (iso-osmotic) 50 mL (ROCEPHIN)metroNIDAZOLE 500 mg PREMIX piggyback (FLAGYL)Problem List:Colon cancer (HCC) [C18.9]Diabetes (HCC) [E11.9]Hypertension [I10]Allergies:No Known AllergiesDate Verified:04/23/18Lab ValuesLab Value Units Date High LowPOTA* 4.5 mmol/L 04/06/2018 5.1 3.7HEMA* 51.6 % 04/06/2018 51.0 39.0Progress Notes ([facility]):Hannah Zaragoza Psr 04/19/2018 9:08 AM SignedPatient called with pre-operative questions [phone] Garcia, RN, RN 04/19/2018 2:23 PM SignedCall returned. Reviewed prep questions and recovery question with patient.Patient verbalized understanding and will call office with any additionalquestions or concerns.Progress Notes ([facility] ):Jun Arriola DO 03/31/2018 5:29 PM SignedPATIENT NAME: Ruth SmithMRN: [id number] PHYSICIAN: Jeff Mandel , DO[address] [address]JRPEOLI CARE PHYSICIAN: No primary care provider on file.OTHER PHYSICIANS:CHIEF COMPLAINT: Malignant neoplasm of colon, unspecified part of colon (hcc)(primary encounter diagnosis)ASSESSMENT/BASILIO N:(C18.9) Malignant neoplasm of colon, unspecified part of colon (HCC) (primaryencounter diagnosis)Colon cancerSurgical staging will be completed 04/23/[address] Flores.Following surgical staging if he is determined to be high risk disease he willbe offered adjuvant chemotherapy. He will follow-up with me after surgery todiscuss further.We'll check a CBC to make sure he is not iron deficient and this is fairlycommon in newly diagnosed colon cancer.Visit (SP) Office on 03/26/18-BASIC METABOLIC PNL-ABS GRAN CT + CBC ([facility])-HEPATIC FUNCTION PNL-CEA BLD Return in about 2 months (around 05/26/2018), or f/u 2 months. has colectomyscheduled in apr already.. -------HISTORY OF PRESENT ILLNESS:47-year-old male referred for colon cancer.Past medical history includes type 2 diabetes, obesity, renal stones, chroniclumbar back pain, chronic arthritis, hypertension, bipolar, depression.Outpatient medications include Humalog insulins, Jentadueto, Lantus insulins,Imodium, meloxicam, metoprolol, potassium, multivitamin, trazodone, dicyclomine,citalopram, fenofibrate.He is a nonsmoker and does not drink alcohol regularly. He was a heavy drinkeruntil 1999. Initially presented to his primary care provider with loosestools, abdominal upset, irregular bowel movement, he was referred to Dr. Mandel.He performed a colonoscopy and an EGD.Colonoscopy showed a large sessile cecal polyp and large sessile descendingcolon polyp. He had grade 2 internal hemorrhoids. He also had mildesophagitis.Biopsy from 02/22/18 shows invasive well to moderately differentiatedadenocarci noma invading into the submucosa with high-grade focal dysplasia andan underlying tubular adenoma.CT of the chest abdomen and pelvis were performed on 01/20/18 without IV contrastwhich showed cirrhosis with splenomegaly, no acute abnormalities in the abdomenand pelvis.CT of the chest abdomen and pelvis with IV contrast was performed on 03/08/18which again showed a cirrhotic liver, splenomegaly, and a thickening of theshort segment of descending colon. No adenopathy was noted.March 26, 2018Colectomy with Dr. Flores scheduled for 04/23.He still has a lot of complaints of intermittent abdominal discomfort anddiarrhea alternating with constipation, gas and cramping. This is at leastmarginally improved though from a few months ago.Vitals: BP 146/84 Pulse 84 Temp (Src) 97.7 (Oral) Resp 18 Ht 6'.047 [verified by 2 care givers[ (1.83m) Wt 271 lb 3.2 oz (123.0kg) SpO2 94% BMI 36.73 kg/(m2). Body surface area is 2.5 meters squared. REVIEW OF SYSTEMS PHYSICAL EXAM ECOG PS: 0 NEGATIVES POSITIVES NEGATIVES POSITIVESGEN: fevers, sweats, chills. Overall feels well. GEN: Well appearing, alert,in no acute distress, appears stated age Elevated BMI. Otherwise very healthyappearing male.SKIN: lesions, rash, itching. SKIN: Normal color, texture, turgor, no rashesor lesionsHEENT: significant headaches, changes in hearing, changes in vision, nosebleeds. ENT: No scleral icterus. NECK: Supple, no thyromegaly, no JVD.: dysuria, frequency or incontinence. LYMPH: No cervical, supraclavicular,axillary , inguinal adenopathy.RESP: dyspnea, cough, wheezing. LUNG: Clear to auscultation, no wheezing ralesor rhonchiCARD: chest pain, leg swelling, palpitations. HEART: Regular. No murmurs,gallop, or rubs. No ectopy.GI: See history of present illness. ABDM: Soft. Non-tender.Non-distended . Bowel sounds normal. No masses. No hepatosplenomegaly.HEME: prolonged bleeding, bruising, adenopathy. EXT: No clubbing, cyanosis oredema.MUSC: joint pain or swelling. MUSC: No joint swelling, deformity, ortenderness.NEURO: syncope, seizures, peripheral numbness or tingling. BACK: No tendernessto palpation. No flank tenderness.MEDICATIONS:t raZODone (DESYREL) 50 mg tablet Take 50 mg by mouth daily at bedtime.potassium chloride ER (K-DUR, KLOR-CON) 20 mEq tablet Take 20 mEq by mouth twicedaily.multivitamin tablet Take 1 tablet by mouth once daily.metoprolol succinate ER (TOPROL XL) 50 mg 24 hr tablet Take 50 mg by mouth twicedaily.meloxicam (MOBIC) 15 mg tablet Take 15 mg by mouth as needed.loperamide (IMODIUM) 2 mg cap(s) Take 2 mg by mouth four times daily as needed.insulin glargine,hum.rec.anlog (LANTUS SUBCUTANEOUS) Inject 40 Unitssubcutaneously.isabella gliptin-metFORMIN (JENTADUETO) 2.5-1,000 mg tab Take by mouth.hydroCHLOROthiazid e (HYDRODIURIL, ESIDRIX) 25 mg tablet Take 25 mg by mouth oncedaily.insulin lispro (HUMALOG KWIKPEN INSULIN SUBCUTANEOUS) Inject 18 Unitssubcutaneously.Feno fibrate (LOFIBRA) 160 mg tablet Take 160 mg by mouth once daily.dicyclomine (BENTYL) 10 mg capsule Take 20 mg by mouth four times daily.citalopram (CELEXA) 20 mg tablet Take 20 mg by mouth once daily.pantoprazole DR (PROTONIX) 40 mg tablet Take 40 mg by mouth once daily.gabapentin (NEURONTIN) 300 mg capsule Take 300 mg by mouth three times daily.ALLERGIES: ALLERGIESNo Known AllergiesPAST MEDICAL HISTORYDiagnosis Date- Bipolar 1 disorder (HCC)- Colon cancer (HCC)- Diabetes (HCC)- HypertensionPAST SURGICAL HISTORYProcedure Laterality Date- BACK SURGERY HX- COLONOSCOPY 02/22/2018- EGD 02/22/2018No family history on file.SOCIAL HISTORY:Social HistorySubstance Use Topics- Smoking status: Former Smoker- Smokeless tobacco: Never Used- Alcohol use NoCOUNSELING:I discussed with Ruth the natural history, treated course, and prognosis ofMalignant neoplasm of colon, unspecified part of colon (hcc) (primary encounterdiagnosis); my impression as well as the rationale, logistics, risks, benefits,and alternatives to the management options noted above; and my recommendationslisted below. The patient Ruth Smith verbalized understanding andagreed with these recommendations and plan. I answered all questionssatisfactorily. .Ander Arriola D.O.Medical OncologistAultman Or[facility] SURGICAL PATHOLOGYon 018 SURGICAL PATHOLOGY Specimen #: [id number] Physician: MOIRA ELIZONDO M.D. [place]; [id number] (02/22/2018)1. Cecum, polyp, polypectomy (A) - Tubular adenoma.2. Descending colon, polyp, polypectomy (B) - Well differentiated adenocarcinoma arising in a background oftubulovillous adenoma with high-grade dysplasia. - pT1: invasion into the submucosa. - Positive for focal tumor budding. - Negative for lymphovascular invasion. - Negative for perineural invasion. - Resection margins negative for carcinoma.COMMENTThank you for allowing us the opportunity to review this case inconsultation representing the colon polyp biopsies from Renetta, a 47-year-old man with a history of abdominal pain anddyspepsia. At endoscopy, the patient was noted to have two large sessilepolyps that were removed with hot snare. The descending colon polypectomy specimen (B) shows superficial fragmentsof tubulovillous adenoma lined by cells with nuclear enlargement,hyperchromas ia, and stratification involving the surface epithelium. Thereare focal areas of increased architectural complexity and loss of nuclearpolarity, consistent with high-grade dysplasia. In one area of the polyp,there are haphazardly arranged, angulated glands which are seen invadinginto the submucosa. One large gland has complex cribriformingarchitectur e. These invasive glands are surrounded by a stromaldesmoplastic response. Foci of tumor budding are identified. Invasiveglands are not seen at the resection margin. Overall, the features in the descending colon polypectomy specimen areconsistent with a well-differentiated adenocarcinoma arising in atubulovillous adenoma. Please note that aside from focal tumor budding, noadditional adverse features such as poor tumor differentiation,lymphova scular invasion or positive resection margins are identified. Thank you for sending this case in consultation. Please do not hesitate tocontact the GI Consultation Service at [phone] with questions or ifadditional follow up information becomes available. This case was reviewedin conjunction with the GI pathology fellow, Yvonne Santiago M.D. MSc.G/EKTA/lh/03-14-2018Jo anyi Sterling M.D.(Electronic Signature) SPECIMEN SUBMITTEDA: 6 SLIDES [id number] (A, B) CLINICAL DATAAbdominal pain.Patient ID #: Date of Report: 03/14/2018Date of Procedure: 03/13/2018Date of Receipt: 03/13/2018Submitted by: MOIRA ELIZONDO M.D.Location: Diagnostic interpretation performed at [facility], [address] [place] [address]. Normal [facility] Comment on above: Performed By: #### S ####See report for performing lab information. Vital Signs Date Time Vital Sign Value Performing Clinician Shruthi james 12-05-2024 13:33-0400 Body height 185.42 cm [facility] 12-05-2024 13:33-0400 Body mass index (BMI) [Ratio] 32.3 kg/m2 [facility] 12-05-2024 13:33-0400 Body weight 111 kg [facility] 12-05-2024 13:33-0400 Diastolic blood pressure 113 mm[Hg] [facility] 12-05-2024 13:33-0400 Heart rate 95 /min [facility] 12-05-2024 13:33-0400 Systolic blood pressure 183 mm[Hg] [facility] 12-04-2024 15:30-0400 Body height 185.4 cm Vivek GASPAR Work Phone: [facility] 12-04-2024 15:30-0400 Body mass index (BMI) [Ratio] 29.42 kg/m2 Vivek GASPAR Work Phone: [facility] 12-04-2024 15:30-0400 Body weight 101.15 kg Vivek GASPAR Work Phone: [facility] 12-04-2024 15:30-0400 Diastolic blood pressure 81 mm[Hg] Vivek GASPAR Work Phone: [facility] 12-04-2024 15:30-0400 Heart rate 108 /min Vivek GASPAR Work Phone: [facility] 12-04-2024 15:30-0400 Systolic blood pressure 131 mm[Hg] Vivek GASPAR Work Phone: [facility] 11-28-2024 15:42-0400 Body mass index (BMI) [Ratio] 30.54 kg/m2 Zac Crouch MD Work Phone: [facility] 11-28-2024 15:42-0400 Body temperature 97.9 [degF] Zac Crouch MD Work Phone: [facility] 11-28-2024 15:42-0400 Body weight 105 kg Zac Crouch MD Work Phone: [facility] 11-28-2024 15:42-0400 Diastolic blood pressure 83 mm[Hg] Zac Crouch MD Work Phone: [facility] 11-28-2024 15:42-0400 Heart rate 91 /min Zac Crouch MD Work Phone: [facility] 11-28-2024 15:42-0400 Respiratory rate 18 /min Zac Crouch MD Work Phone: [facility] 11-28-2024 15:42-0400 SaO2% (BldA) [Mass fraction] 99 % Zac Crouch MD Work Phone: [facility] 11-28-2024 15:42-0400 Systolic blood pressure 143 mm[Hg] Zac Crouch MD Work Phone: [facility] 11-22-2024 13:45-0400 Body height 185.4 cm Abrahan Rinaldi MD Work Phone: [facility] 11-22-2024 13:45-0400 Body mass index (BMI) [Ratio] 29.69 kg/m2 Abrahan Rinaldi MD Work Phone: [facility] 11-22-2024 13:45-0400 Body weight 102.06 kg Abrahan Rinaldi MD Work Phone: [facility] 11-22-2024 13:45-0400 Heart rate 110 /min Abrahan Rinaldi MD Work Phone: [facility] 11-22-2024 13:45-0400 SaO2% (BldA) [Mass fraction] 98 % Abrahan Rinaldi MD Work Phone: [facility] 08-27-2024 06:41-0500 Body height 185.42 cm Francisca Wade MD Work Phone: [facility] 08-27-2024 06:41-0500 Body weight 111.13 kg Francisca Wade MD Work Phone: [facility] 07-25-2024 13:42-0500 Body height 185.4 cm Marcell Kraft MD Work Phone: [facility] 07-25-2024 13:42-0500 Body mass index (BMI) [Ratio] 33.65 kg/m2 Marcell Kraft MD Work Phone: [facility] 07-25-2024 13:42-0500 Body temperature 98.01 [degF] Marcell Kraft MD Work Phone: [facility] 07-25-2024 13:42-0500 Body weight 115.7 kg Marcell Kraft MD Work Phone: [facility] 07-18-2024 10:53-0500 Body height 185.4 cm Marcell Yergler HOSPITAL CHIEF FINANCIAL OFFICER-LICENSING REPRESENTATIVE Work Phone: [facility] 07-18-2024 10:53-0500 Body mass index (BMI) [Ratio] 33.64 kg/m2 Marcell Yergler HOSPITAL CHIEF FINANCIAL OFFICER-LICENSING REPRESENTATIVE Work Phone: [facility] 07-18-2024 10:53-0500 Body weight 115.67 kg Marcell Yergler HOSPITAL CHIEF FINANCIAL OFFICER-LICENSING REPRESENTATIVE Work Phone: [facility] 07-18-2024 10:53-0500 Diastolic blood pressure 98 mm[Hg] Marcell Yergler HOSPITAL CHIEF FINANCIAL OFFICER-LICENSING REPRESENTATIVE Work Phone: [facility] 07-18-2024 10:53-0500 Heart rate 99 /min Marcell Yergler HOSPITAL CHIEF FINANCIAL OFFICER-LICENSING REPRESENTATIVE Work Phone: [facility] 07-18-2024 10:53-0500 Systolic blood pressure 172 mm[Hg] Marcell Yergler HOSPITAL CHIEF FINANCIAL OFFICER-LICENSING REPRESENTATIVE Work Phone: [facility] 06-20-2024 14:22-0500 Body height 185.4 cm Ang Figueroa MD Work Phone: [facility] 06-20-2024 14:22-0500 Body mass index (BMI) [Ratio] 32.98 kg/m2 Ang Figueroa MD Work Phone: [facility] 06-20-2024 14:22-0500 Body temperature 96.8 [degF] Ang Figueroa MD Work Phone: [facility] 06-20-2024 14:22-0500 Body weight 113.4 kg Ang Figueroa MD Work Phone: [facility] 06-05-2024 13:28-0400 Body height 185.42 cm [facility] 06-05-2024 13:28-0400 Body mass index (BMI) [Ratio] 33 kg/m2 [facility] 06-05-2024 13:28-0400 Body weight 113.39 kg [facility] 06-05-2024 13:28-0400 Diastolic blood pressure 94 mm[Hg] [facility] 06-05-2024 13:28-0400 Heart rate 90 /min [facility] 06-05-2024 13:28-0400 Systolic blood pressure 140 mm[Hg] [facility] 04-18-2024 13:24-0400 Body height 185.4 cm Ang Figueroa MD Work Phone: [facility] 04-18-2024 13:24-0400 Body mass index (BMI) [Ratio] 33.39 kg/m2 Ang Figueroa MD Work Phone: [facility] 04-18-2024 13:24-0400 Body temperature 96.91 [degF] Ang Figueroa MD Work Phone: [facility] 04-18-2024 13:24-0400 Body weight 114.8 kg Ang Figueroa MD Work Phone: [facility] 04-02-2024 12:58-0400 Body height 185.4 cm Eddie LOZA Work Phone: [facility] 04-02-2024 12:58-0400 Body mass index (BMI) [Ratio] 33.38 kg/m2 Eddie Torre HOSPITAL CHIEF FINANCIAL OFFICER-LICENSING REPRESENTATIVE Work Phone: [facility] 04-02-2024 12:58-0400 Body weight 114.76 kg Eddie Torre HOSPITAL CHIEF FINANCIAL OFFICER-LICENSING REPRESENTATIVE Work Phone: [facility] 04-02-2024 12:58-0400 Diastolic blood pressure 83 mm[Hg] Eddie Torre HOSPITAL CHIEF FINANCIAL OFFICER-LICENSING REPRESENTATIVE Work Phone: [facility] 04-02-2024 12:58-0400 Heart rate 100 /min Eddie Torre HOSPITAL CHIEF FINANCIAL OFFICER-LICENSING REPRESENTATIVE Work Phone: [facility] 04-02-2024 12:58-0400 Respiratory rate 18 /min Eddie Torre HOSPITAL CHIEF FINANCIAL OFFICER-LICENSING REPRESENTATIVE Work Phone: [facility] 04-02-2024 12:58-0400 SaO2% (BldA) [Mass fraction] 98 % Eddie Torre HOSPITAL CHIEF FINANCIAL OFFICER-LICENSING REPRESENTATIVE Work Phone: [facility] 04-02-2024 12:58-0400 Systolic blood pressure 157 mm[Hg] Eddie Torre HOSPITAL CHIEF FINANCIAL OFFICER-LICENSING REPRESENTATIVE Work Phone: [facility] 03-14-2024 13:08-0400 Body height 185.4 cm Rehana Dennisoniko PA-C Work Phone: [facility] 03-14-2024 13:08-0400 Body mass index (BMI) [Ratio] 33.25 kg/m2 Rehana Poslaiko PA-C [facility] 03-14-2024 13:08-0400 Body temperature 97.7 [degF] Rehana Poslaiko PA-C [facility] 03-14-2024 13:08-0400 Body weight 114.31 kg Rehana Poslaiko PA-C Work Phone: [facility] 02-28-2024 13:01-0400 Body height 185.42 cm [facility] 02-28-2024 13:01-0400 Body mass index (BMI) [Ratio] 32.5 kg/m2 [facility] 02-28-2024 13:01-0400 Body weight 112.03 kg [facility] 02-22-2024 13:03-0400 Body height 185.4 cm Ang Figueroa MD Work Phone: [facility] 02-22-2024 13:03-0400 Body mass index (BMI) [Ratio] 33.31 kg/m2 Ang Figueroa MD Work Phone: [facility] 02-22-2024 13:03-0400 Body temperature 98.4 [degF] Ang Figueroa MD Work Phone: [facility] 02-22-2024 13:03-0400 Body weight 114.5 kg Ang Figueroa MD Work Phone: [facility] 02-03-2024 08:17-0400 Body temperature 98.29 [degF] Leatha Mcguire MD Work Phone: [facility] 02-03-2024 08:17-0400 Diastolic blood pressure 69 mm[Hg] Leatha Mcguire MD Work Phone: [facility] 02-03-2024 08:17-0400 Heart rate 79 /min Leatha Mcguire MD Work Phone: [facility] 02-03-2024 08:17-0400 Respiratory rate 14 /min Leatha Mcguire MD Work Phone: [facility] 02-03-2024 08:17-0400 SaO2% (BldA) [Mass fraction] 98 % Leatha Mcguire MD Work Phone: [facility] 02-03-2024 08:17-0400 Systolic blood pressure 127 mm[Hg] Leatha Mcguire MD Work Phone: [facility] 02-01-2024 00:31-0400 Body mass index (BMI) [Ratio] 32.61 kg/m2 Leatha Mcguire MD Work Phone: [facility] 02-01-2024 00:31-0400 Body weight 112.1 kg Leatha Mcguire MD Work Phone: [facility] 01-29-2024 11:12-0400 Body height 185.4 cm Leatha Mcguire MD Work Phone: [facility] 01-22-2024 15:16-0400 Body temperature 97.7 [degF] Mahammad Imani DO Work Phone: [facility] 01-22-2024 15:16-0400 Diastolic blood pressure 88 mm[Hg] Mahammad Imani DO Work Phone: [facility] 01-22-2024 15:16-0400 Heart rate 87 /min Mahammad Imani DO Work Phone: [facility] 01-22-2024 15:16-0400 Respiratory rate 18 /min Mahammad Imani DO Work Phone: [facility] 01-22-2024 15:16-0400 SaO2% (BldA) [Mass fraction] 94 % Mahammad Imani DO Work Phone: [facility] 01-22-2024 15:16-0400 Systolic blood pressure 126 mm[Hg] Mahammad Imani DO Work Phone: [facility] 01-21-2024 23:28-0400 Body mass index (BMI) [Ratio] 34.47 kg/m2 Mahammad Imani DO Work Phone: [facility] 01-21-2024 23:28-0400 Body weight 118.5 kg Mahammad Imani DO Work Phone: [facility] 01-18-2024 10:49-0400 Body height 185.4 cm Mahammad Imani DO Work Phone: [facility] 12-01-2023 10:41-0400 Body height 185.42 cm PAKatherin Du Work Phone: [facility] 12-01-2023 10:41-0400 Body mass index (BMI) [Ratio] 33.7 kg/m2 PAKatherin Du Work Phone: [facility] 12-01-2023 10:41-0400 Body weight 116.11 kg PA-Venu Du Work Phone: [facility] 11-13-2023 09:22-0400 Diastolic blood pressure 101 mm[Hg] HUBERT-Venu Du Work Phone: [facility] 11-13-2023 09:22-0400 Heart rate 88 /min LUIS Du Work Phone: [facility] 11-13-2023 09:22-0400 Respiratory rate 16 /min LUIS Du Work Phone: [facility] 11-13-2023 09:22-0400 SaO2% (BldA) [Mass fraction] 97 % LUIS Du Work Phone: [facility] 11-13-2023 09:22-0400 Systolic blood pressure 178 mm[Hg] LUIS Du Work Phone: [facility] 11-13-2023 09:16-0400 Body height 185.42 cm LUIS Du Work Phone: [facility] 11-13-2023 09:16-0400 Body weight 117.93 kg LUIS Du Work Phone: [facility] 11-01-2023 14:35-0400 Body temperature 97.8 [degF] LUIS Du Work Phone: [facility] 11-01-2023 14:35-0400 Diastolic blood pressure 88 mm[Hg] LUIS Du Work Phone: [facility] 11-01-2023 14:35-0400 Heart rate 100 /min PA-C Jd Du Work Phone: [facility] 11-01-2023 14:35-0400 Respiratory rate 16 /min PA-C Jd Du Work Phone: [facility] 11-01-2023 14:35-0400 SaO2% (BldA) [Mass fraction] 96 % PA-C Jd Du Work Phone: [facility] 11-01-2023 14:35-0400 Systolic blood pressure 170 mm[Hg] PA-C Jd Du Work Phone: [facility] 11-01-2023 11:29-0400 Body height 185.42 cm PA-C Jd Du Work Phone: [facility] 11-01-2023 11:29-0400 Body weight 118 kg PA-C Jd Du Work Phone: [facility] 08-10-2023 14:45-0500 Body height 185.42 cm PA-C Jd Du Work Phone: [facility] 08-10-2023 14:45-0500 Body weight 117.93 kg PA-C Jd Du Work Phone: [facility] 08-10-2023 14:45-0500 Diastolic blood pressure 96 mm[Hg] PA-C Jd Du Work Phone: [facility] 08-10-2023 14:45-0500 Systolic blood pressure 149 mm[Hg] PA-C Jd Du Work Phone: [facility] 04-24-2023 11:02-0400 Diastolic blood pressure 98 mm[Hg] PA-C Jd Du Work Phone: [facility] 04-24-2023 11:02-0400 Heart rate 78 /min PA-Venu Du Work Phone: [facility] 04-24-2023 11:02-0400 Respiratory rate 18 /min PA-Venu Du Work Phone: [facility] 04-24-2023 11:02-0400 SaO2% (BldA) [Mass fraction] 98 % PA-Venu Du Work Phone: [facility] 04-24-2023 11:02-0400 Systolic blood pressure 141 mm[Hg] PA-Venu Du Work Phone: [facility] 04-24-2023 10:55-0400 Body height 185.42 cm PA-Venu Du Work Phone: [facility] 04-24-2023 10:55-0400 Body weight 114.3 kg HUBERT-Venu Du Work Phone: [facility] 03-21-2023 13:56-0400 Diastolic blood pressure 89 mm[Hg] HUBERT-Venu Du Work Phone: [facility] 03-21-2023 13:56-0400 Heart rate 82 /min LUIS Du Work Phone: [facility] 03-21-2023 13:56-0400 Respiratory rate 14 /min LUIS Du Work Phone: [facility] 03-21-2023 13:56-0400 SaO2% (BldA) [Mass fraction] 95 % LUIS Du Work Phone: [facility] 03-21-2023 13:56-0400 Systolic blood pressure 129 mm[Hg] PA-Venu Du Work Phone: [facility] 03-21-2023 12:23-0400 Body height 185.42 cm LUIS Du Work Phone: [facility] 03-21-2023 12:23-0400 Body temperature 98.2 [degF] LUIS Du Work Phone: [facility] 03-21-2023 12:23-0400 Body weight 115.66 kg LUIS Du Work Phone: [facility] 03-01-2023 15:15-0400 Body height Guillermo Thornton Other [employer] Other 03-01-2023 15:15-0400 Body mass index (BMI) [Ratio] 32.98 kg/m2 Guillermo Thornton Other [employer] Other 03-01-2023 15:15-0400 Body weight 113.4 kg Guillermo Thornton Other [employer] Other 03-01-2023 15:15-0400 Diastolic blood pressure 107 mm[Hg] Guillermo Thornton Other [employer] Other 03-01-2023 15:15-0400 Systolic blood pressure 145 mm[Hg] Guillermo Thornton Other [employer] Other 08-24-2022 12:00-0500 Body height Sugar Knight Other [employer] Other 08-24-2022 12:00-0500 Body mass index (BMI) [Ratio] 33.69 kg/m2 Sugar Knight Other [employer] Other 08-24-2022 12:00-0500 Body weight 115.85 kg Sugar Knight Other [employer] Other 08-24-2022 12:00-0500 Diastolic blood pressure 108 mm[Hg] Sugar Knight Other [employer] Other 08-24-2022 12:00-0500 Respiratory rate 20 /min Sugar Knight Other [employer] Other 08-24-2022 12:00-0500 SaO2% (BldA) [Mass fraction] 98 % Sugar Knight Other [employer] Other 08-24-2022 12:00-0500 Systolic blood pressure 176 mm[Hg] Sugar Knight Other [employer] Other 08-03-2022 12:34-0500 Diastolic blood pressure 86 mm[Hg] LUIS Du Work Phone: [facility] 08-03-2022 12:34-0500 Heart rate 81 /min LUIS Du Work Phone: [facility] 08-03-2022 12:34-0500 Respiratory rate 20 /min LUIS Du Work Phone: [facility] 08-03-2022 12:34-0500 SaO2% (BldA) [Mass fraction] 95 % LUIS Du Work Phone: [facility] 08-03-2022 12:34-0500 Systolic blood pressure 134 mm[Hg] LUIS Du Work Phone: [facility] 08-03-2022 11:51-0500 Inhaled oxygen flow rate 3 L/min LUIS Du Work Phone: [facility] 08-03-2022 10:54-0500 Body height 185.42 cm LUIS Du Work Phone: [facility] 08-03-2022 10:54-0500 Body weight 117.93 kg LUIS Du Work Phone: [facility] 07-28-2022 10:30-0500 Body height Sugar Knight Other [employer] Other 07-28-2022 10:30-0500 Body mass index (BMI) [Ratio] 34.96 kg/m2 Sugar Knight Other [employer] Other 07-28-2022 10:30-0500 Body weight 120.2 kg Sugar Knight Other [employer] Other 07-28-2022 10:30-0500 Diastolic blood pressure 100 mm[Hg] Sugar Knight Other [employer] Other 07-28-2022 10:30-0500 Systolic blood pressure 150 mm[Hg] Sugar Knight Other [employer] Other 06-01-2022 12:42-0400 Diastolic blood pressure 93 mm[Hg] LUIS Du Work Phone: [facility] 06-01-2022 12:42-0400 Heart rate 93 /min LUIS Du Work Phone: [facility] 06-01-2022 12:42-0400 Respiratory rate 20 /min LUIS Du Work Phone: [facility] 06-01-2022 12:42-0400 SaO2% (BldA) [Mass fraction] 94 % LUIS Du Work Phone: [facility] 06-01-2022 12:42-0400 Systolic blood pressure 156 mm[Hg] LUIS Du Work Phone: [facility] 06-01-2022 12:07-0400 Inhaled oxygen flow rate 3 L/min LUIS Du Work Phone: [facility] 06-01-2022 11:17-0400 Body height 185.42 cm LUIS Du Work Phone: [facility] 06-01-2022 11:17-0400 Body weight 117.93 kg LUIS Du Work Phone: [facility] 04-27-2022 17:45-0400 Body height Asa Moeller Other [employer] Other 04-27-2022 17:45-0400 Body mass index (BMI) [Ratio] 34.72 kg/m2 Asa Moeller Other [employer] [facility] [employer] Other 04-27-2022 17:45-0400 Body weight 119.39 kg Asa Moeller Other [employer] Other 04-27-2022 17:45-0400 SaO2% (BldA) [Mass fraction] 96 % Asa Moeller Other [facility] [employer] Other 04-15-2022 14:08-0400 Diastolic blood pressure 99 mm[Hg] PA-C Jd Du Work Phone: [facility] 04-15-2022 14:08-0400 Heart rate 82 /min PA-C Jd Du Work Phone: [facility] 04-15-2022 14:08-0400 Respiratory rate 20 /min PA-C Jd Du Work Phone: [facility] 04-15-2022 14:08-0400 SaO2% (BldA) [Mass fraction] 96 % PA-C Jd Du Work Phone: [facility] 04-15-2022 14:08-0400 Systolic blood pressure 170 mm[Hg] PA-C Jd Du Work Phone: [facility] 04-15-2022 14:06-0400 Body height 185.42 cm PA-C Jd Du Work Phone: [facility] 04-15-2022 14:06-0400 Body weight 117.02 kg PA-C Jd Du Work Phone: [facility] 03-31-2022 16:00-0400 Body height Asa Moeller Other [employer] Other 03-31-2022 16:00-0400 Body mass index (BMI) [Ratio] 34.43 kg/m2 Asa Moeller Other [employer] Other 03-31-2022 16:00-0400 Body weight 118.39 kg Asa Moeller Other [employer] Other 03-31-2022 16:00-0400 SaO2% (BldA) [Mass fraction] 98 % Asa Moeller Other [employer] Other 12-20-2021 16:15-0400 Body height Bird Slade Other [employer] Other 12-20-2021 16:15-0400 Body mass index (BMI) [Ratio] 34.56 kg/m2 Bird Sldae Other [employer] Other 12-20-2021 16:15-0400 Body weight 118.84 kg Bird Slade Other [employer] Other 08-25-2021 16:15-0500 Body height Jeff Mandel Other [employer] Other 08-25-2021 16:15-0500 Body mass index (BMI) [Ratio] 34.56 kg/m2 Jeff Mandel Other [employer] Other 08-25-2021 16:15-0500 Body weight 118.84 kg Jeff Mandel Other [employer] Other 01-10-2022 16:30-0500 Body height Bird Slade Other [employer] Other 08-23-2021 16:30-0500 Body mass index (BMI) [Ratio] 34.56 kg/m2 Bird Slade Other [employer] Other 08-23-2021 16:30-0500 Body weight 118.84 kg Bird Slade Other [employer] Other Encounters Encounter Date Encounter Type Care Provider Facility Start: 12-26-2024 End: 12-26-2024 ambulatory Komal Hernadez APRN.CNP Work Phone: Pain Management Comment on above: Questionnaire Submis deejay Start: 12-26-2024 End: 12-26-2024 E-mail encounter from caregiver Komalmisael [place] Hernadez APRN.LICENSING REPRESENTATIVE Work Phone: Pain Management Start: 12-18-2024 End: 12-20-2024 Telephone encounter Abrahan Rinaldi MD Work Phone: Pain Management Comment on above: Pain Procedure Respo nse & follow up (Right L5-S1 Transforaminal Epidural Steroid injection # 1) Start: 12-16-2024 End: 12-16-2024 ambulatory ABRAHAN RINALDI Facility:[facility] Start: 12-12-2024 End: 12-12-2024 Patient encounter procedure Francisca Wade MD Work Phone: [facility] [place] Work Phone: Start: 12-12-2024 End: 12-12-2024 ambulatory Francisca Wade MD Work Phone: [facility] Work Phone: Start: 12-05-2024 End: 12-05-2024 ambulatory [facility] Work Phone: Start: 12-05-2024 End: 12-05-2024 [facility] Work [facility]: Start: 12-04-2024 End: 12-04-2024 Office outpatient new 45 minutes Vivek GASPAR Work Phone: [facility] Comment on above: Benign prostatic hyp erplasia, unspecified whether lower urinary tract symptoms present (Primary Dx); Difficulty urinating Start: 12-04-2024 End: 12-04-2024 ambulatory VIVEK GILLIS [facility] [facility] Start: 12-02-2024 End: 12-02-2024 Telephone encounter Abrahan Rinaldi MD Work Phone: Ambulatory Surgery Comment on above: Schedule Injection Start: 11-28-2024 End: 11-28-2024 Office outpatient new 45 minutes Zac Crouch MD Work Phone: Hematology/Oncology Comment on above: Malignant neoplasm o f colon, unspecified part of colon (HCC) (Primary Dx); Thrombocytopenia Start: 11-28-2024 End: 11-28-2024 ambulatory JD DU Facility:[facility] Start: 11-25-2024 End: 11-25-2024 Telephone encounter Zac Crouch MD Work Phone: Hematology/Oncology Start: 11-22-2024 End: 11-22-2024 ambulatory MARTHA FAULKNER Facility:[facility] Start: 11-22-2024 End: 11-22-2024 Patient encounter procedure Abrahan Rinaldi MD Work Phone: Pain Management Comment on above: Radicular syndrome o f right leg (Primary Dx); History of lumbar laminectomy; Diabetic peripheral neuropathy (HCC); History of total right hip replacement; Thrombocytopenia Start: 11-13-2024 End: 11-13-2024 ambulatory Abrahan Rinaldi MD Work Phone: Pain Management Comment on above: Questionnaire Submis deejay Start: 11-13-2024 End: 11-13-2024 E-mail encounter from caregiver Abrahan Rinaldi MD Work Phone: Pain Management Start: 11-12-2024 End: 11-12-2024 Emergency department patient visit [facility] Start: 11-08-2024 End: 11-08-2024 ambulatory JD DU Facility:[facility] Start: 11-08-2024 End: 11-08-2024 Telemedicine consultation with patient Martha Montoyadarrenshayan LUCY Work Phone: Telemedicine Comment on above: Acute right-sided lo w back pain with right-sided sciatica (Primary Dx) Start: 11-04-2024 End: 11-04-2024 ambulatory Winston Owens MD Facility:[facility] Start: 11-03-2024 End: 11-03-2024 Emergency department patient visit [facility] Start: 09-23-2024 End: 09-23-2024 ambulatory Winston Owens MD Facility:[facility] Start: 09-17-2024 End: 09-17-2024 Telephone encounter Hannah Gantai [facility] Start: 09-04-2024 End: 09-04-2024 Refill Marcell Badillo APRN-LICENSING REPRESENTATIVE Work Phone: [facility] Comment on above: Lumbar radiculopathy , chronic Lumbar radiculopathy , chronic (Primary Dx); History of lumbar surgery; Lumbar spondylosis; Bilateral hand pain Start: 08-28-2024 End: 08-28-2024 Refill Marcell Badillo APRN-LICENSING REPRESENTATIVE Work Phone: [facility] Comment on above: Lumbar radiculopathy , chronic Start: 08-27-2024 End: 08-27-2024 Patient encounter procedure Francisca Wade MD Work Phone: [facility] [place] Work Phone: Start: 08-27-2024 End: 08-27-2024 ambulatory Francisca Wade MD Work Phone: [facility] Work Phone: Start: 08-21-2024 End: 08-21-2024 Refill Marcell Badillo HOSPITAL CHIEF FINANCIAL OFFICER-LICENSING REPRESENTATIVE Work Phone: [facility] Comment on above: Lumbar radiculopathy , chronic Start: 08-13-2024 End: 08-15-2024 Refill Marcell Badillo HOSPITAL CHIEF FINANCIAL OFFICER-LICENSING REPRESENTATIVE Work Phone: [facility] Comment on above: Lumbar radiculopathy , chronic Start: 08-05-2024 End: 08-05-2024 Bamboo flowsheet Erick Naylor DO Work Phone: [facility] Start: 08-05-2024 End: 08-05-2024 Bamboo flowsheet Erick Naylor DO Work Phone: [facility] Start: 08-05-2024 End: 08-08-2024 Patient encounter procedure Erick Naylor DO Work Phone: [facility] Comment on above: Paresthesia (Primary Dx) Lumbar radiculopathy , chronic Start: 08-05-2024 End: 08-05-2024 ambulatory ERICK NAYLOR Not Available Start: 07-25-2024 End: 07-25-2024 Office outpatient visit 25 minutes Marcell Kraft MD Work Phone: [facility] Comment on above: Trochanteric bursiti s of right hip (Primary Dx) Start: 07-25-2024 End: 07-25-2024 ambulatory [facility] Start: 07-24-2024 End: 07-24-2024 Refill Laura HAWK [facility] Comment on above: Lumbar radiculopathy , chronic Start: 07-18-2024 End: 07-18-2024 Office outpatient new 60 minutes Marcell Badillo HOSPITAL CHIEF FINANCIAL OFFICER-LICENSING REPRESENTATIVE Work Phone: [facility] Comment on above: Lumbar radiculopathy , chronic (Primary Dx); Left cervical radiculopathy; Bilateral hand pain; Bilateral hand numbness; Lumbar spondylosis; Cervical spondylosis; Chronic midline low back pain without sciatica; History of lumbar surgery; Anxiety Start: 07-18-2024 End: 07-18-2024 ambulatory [facility] Start: 07-16-2024 End: 07-16-2024 ambulatory [facility] Start: 07-09-2024 End: 07-09-2024 Orders Only [facility] Comment on above: Closed displaced int ertrochanteric fracture of right femur with routine healing, subsequent encounter (Primary Dx) Start: 07-02-2024 End: 07-02-2024 Orders Only [facility] Comment on above: Back pain, unspecifi ed back location, unspecified back pain laterality, unspecified chronicity (Primary Dx) Start: 06-20-2024 End: 06-20-2024 Office outpatient visit 25 minutes Ang Figueroa MD Work Phone: [facility] Comment on above: Right knee pain, uns pecified chronicity (Primary Dx) Start: 06-20-2024 End: 06-20-2024 ambulatory ANG [facility] Start: 06-17-2024 End: 06-17-2024 Orders Only Connie Cardoza [facility] Comment on above: Right knee pain, uns pecified chronicity (Primary Dx) Start: 06-07-2024 End: 06-07-2024 Emergency department patient visit [facility] Start: 06-05-2024 End: 06-05-2024 ambulatory [facility] Work Phone: Start: 06-05-2024 End: 06-05-2024 Patient encounter procedure [facility] Work Phone: Start: 06-03-2024 End: 06-03-2024 ambulatory [facility] Start: 05-07-2024 End: 05-08-2024 Emergency department patient visit BRENNEN MICHELLE [facility] Start: 05-07-2024 End: 05-07-2024 Emergency department patient visit DIANE MCGRATH [facility] Start: 04-18-2024 End: 04-18-2024 Postop follow up visit related to original px nAg Figueroa MD Work Phone: [facility] Comment on above: Closed displaced int ertrochanteric fracture of right femur with routine healing, subsequent encounter (Primary Dx) Start: 04-18-2024 End: 04-18-2024 ambulatory TOM Raymond [facility] Start: 04-04-2024 End: 04-09-2024 Telephone encounter Lorena Red RN [facility] Start: 04-02-2024 End: 04-02-2024 Office outpatient visit 25 minutes Eddie Komal HOSPITAL CHIEF FINANCIAL OFFICER-LICENSING REPRESENTATIVE Work Phone: [facility] Comment on above: Disorder of sacrum ( Primary Dx) Start: 04-02-2024 End: 04-02-2024 ambulatory [facility] Raymond [facility] Start: 03-18-2024 End: 03-18-2024 Orders Only Tom Marquez PA-C Work Phone: [facility] Comment on above: Closed fracture of r ight hip, initial encounter ([facility]) Start: 03-14-2024 End: 03-14-2024 Postop follow up visit related to original px Rehana GASPAR-C Work Phone: [facility] Comment on above: Closed displaced int ertrochanteric fracture of right femur with routine healing, subsequent encounter (Primary Dx); Trochanteric bursitis of right hip Start: 03-14-2024 End: 03-14-2024 ambulatory ANG FIGUEROA [facility] Start: 03-07-2024 End: 03-07-2024 Megha Davis MD Work Phone: [facility] Start: 03-06-2024 End: 03-06-2024 ambulatory [facility] Start: 02-28-2024 End: 02-28-2024 ambulatory [facility] Work Phone: Start: 02-28-2024 End: 02-28-2024 Patient encounter procedure [facility] Work Phone: Start: 02-26-2024 End: 02-26-2024 Orders Only Tom Marquez PA-C Work Phone: [facility] Comment on above: Closed fracture of r ight hip, initial encounter ([facility]) Start: 02-23-2024 End: 02-23-2024 Orders Only Tom Marquez PA-C Work Phone: [facility] Comment on above: Closed fracture of r ight hip, initial encounter ([facility]) Start: 02-22-2024 End: 02-22-2024 ambulatory [facility] Start: 02-22-2024 End: 02-22-2024 ambulatory CHEY Vanessa [facility] Comment on above: Periprosthetic fract ure of hip, subsequent encounter (Primary Dx) Start: 02-22-2024 End: 02-22-2024 Postop follow up visit related to original px Ang Figueroa MD Work Phone: [facility] Comment on above: Localized swelling o f right lower extremity (Primary Dx); Periprosthetic fracture of hip, subsequent encounter Start: 02-19-2024 End: 02-19-2024 Orders Only Tom Marquez PA-C Work Phone: [facility] Comment on above: Closed fracture of r ight hip, initial encounter ([facility]) Start: 02-12-2024 End: 02-12-2024 Orders Only Any GASPAR Work Phone: [facility] Start: 02-09-2024 End: 02-09-2024 Megha Davis MD Work Phone: [facility] Start: 02-09-2024 End: 02-10-2024 Evaluation and management of inpatient TOM MARQUEZ [facility] Start: 02-06-2024 End: 02-06-2024 ambulatory LEATHA MCGUIRE [facility] Start: 02-03-2024 End: 02-09-2024 Evaluation and management of inpatient [facility] Start: 01-30-2024 End: 01-30-2024 ambulatory [facility] Start: 01-29-2024 End: 02-03-2024 Evaluation and management of inpatient [facility] Comment on above: Closed fracture of r ight hip, initial encounter ([facility]) (Primary Dx); Periprosthetic fracture of hip, sequela; Periprosthetic fracture of hip, subsequent encounter Start: 01-29-2024 End: 01-29-2024 Office outpatient visit 40 minutes Jalen Gan MD Work Phone: [facility] Comment on above: Closed displaced int ertrochanteric fracture of right femur, sequela (Primary Dx); Closed displaced subtrochanteric fracture of right femur, initial encounter ([facility]) Start: 01-29-2024 End: 02-09-2024 ambulatory [facility] Start: 01-27-2024 End: 01-30-2024 Evaluation and management of inpatient CORTES SANDOVAL [facility] Start: 01-27-2024 End: 01-30-2024 Evaluation and management of inpatient TONG MORGANALEXIS [facility] Start: 01-23-2024 End: 01-23-2024 ambulatory [facility] Start: 01-22-2024 End: 01-29-2024 Evaluation and management of inpatient [facility] Start: 01-18-2024 End: 01-18-2024 ambulatory MÓNICA PORTILLO [facility] Start: 01-17-2024 End: 01-17-2024 Orders Only Connie Corbin RN [facility] Comment on above: Closed displaced int ertrochanteric fracture of right femur with routine healing, subsequent encounter (Primary Dx) Start: 01-17-2024 End: 01-23-2024 Emergency department patient visit EDIE ARREOLA [facility] Start: 01-17-2024 Encounter for other preprocedural examination GEOFFREY MCKEE [facility] Start: 01-17-2024 End: 01-22-2024 Evaluation and management of inpatient JD Vanessa [facility] Comment on above: Closed fracture of r ight hip, initial encounter ([facility]) (Primary Dx) Start: 01-17-2024 End: 01-18-2024 Emergency department patient visit MÓNICA PORTILLO [facility] Start: 01-17-2024 End: 01-18-2024 Emergency department patient visit MÓNICA PORTILLO [facility] Start: 01-17-2024 Encounter for other preprocedural examination MÓNICA PORTILLO [facility] Start: 01-09-2024 End: 01-09-2024 ambulatory DIONTE FREEMAN Not Available Start: 01-02-2024 End: 01-02-2024 ambulatory CHEY ROMANO Not Available Start: 12-12-2023 End: 12-12-2023 ambulatory DIONTE FREEMAN Not Available Start: 12-01-2023 End: 12-01-2023 ambulatory LUIS Du Work Phone: [facility] Work Phone: Start: 12-01-2023 End: 12-01-2023 Patient encounter procedure LUIS Du Work Phone: [facility] Neuro[facility] Work Phone: Start: 11-13-2023 End: 11-13-2023 ambulatory LUIS Du Work Phone: [facility] Work Phone: Start: 11-13-2023 End: 11-13-2023 Patient encounter procedure LUIS Du Work Phone: [facility] [place] Work Phone: Start: 11-01-2023 End: 11-01-2023 Emergency department patient visit LUIS Du Work Phone: [facility]Emergency Room Work Phone: Start: 09-13-2023 End: 09-13-2023 ambulatory Guillermo Thornton Other [employer] Other Start: 09-13-2023 Telephone encounter Guillermo Sampson Gastroenter[facility] Start: 08-29-2023 End: 08-29-2023 ambulatory Guillermo Thornton Other [employer] Other Start: 08-29-2023 Telephone encounter Guillermo Sampson Gastroenter[facility] Start: 08-21-2023 End: 08-21-2023 ambulatory LUIS Du Work Phone: [facility] Work Phone: Start: 08-21-2023 End: 08-21-2023 Patient encounter procedure LUIS Du Work Phone: [facility]CT Scan [facility] [place] Work Phone: Start: 08-10-2023 End: 08-10-2023 ambulatory Guillermo Thornton Other [employer] Other Start: 08-10-2023 Telephone encounter Guillermo Sampson Gastroenterology Start: 08-10-2023 End: 08-10-2023 Patient encounter procedure LUIS Du Work Phone: [facility] Work Phone: Start: 06-23-2023 End: 06-23-2023 Patient encounter procedure LUIS Du Work Phone: [facility]Ul[facility]ound [facility] [place] Work Phone: Start: 06-12-2023 End: 06-12-2023 ambulatory Guillermo Thornton Other [employer] Other Start: 06-12-2023 Telephone encounter Guillermo Sampson Gastroenter[facility] Start: 05-16-2023 End: 05-16-2023 ambulatory LUIS Du Work Phone: [facility] Work Phone: Start: 05-16-2023 End: 05-16-2023 Patient encounter procedure LUIS Du Work Phone: [facility] Work Phone: Start: 05-02-2023 End: 05-02-2023 ambulatory Guillermo Thornton Other [employer] Other Start: 05-02-2023 Telephone encounter Guillermo Sampson Palliative Care Start: 04-24-2023 End: 04-24-2023 ambulatory LUIS Du Work Phone: [facility] Work Phone: Start: 04-24-2023 End: 04-24-2023 Patient encounter procedure LUIS Du Work Phone: [facility] [place] Work Phone: Start: 03-28-2023 End: 03-28-2023 ambulatory Guillermo Thornton Other [employer] Other Start: 03-28-2023 Telephone encounter Guillermo ASENCIO [facility] G[facility]enter[facility] Start: 03-21-2023 End: 03-21-2023 Admission to same day surgery center LUIS Du Work Phone: [facility] Work Phone: Start: 03-21-2023 End: 03-21-2023 ambulatory LUIS Du Work Phone: [facility] Work Phone: Start: 03-01-2023 End: 03-01-2023 ambulatory Guillermo Thornton Other [employer] Other Start: 03-01-2023 Patient encounter procedure Guillermo Thornton [facility] Start: 02-08-2023 End: 02-08-2023 ambulatory Guillermo Thornton Other [employer] Other Start: 02-08-2023 Telephone encounter Guillermo Thornton [facility] Start: 11-30-2022 End: 11-30-2022 ambulatory Angelo Grande Other [employer] Other Start: 11-30-2022 Telephone encounter Angelo Dubon [facility] Start: 10-20-2022 End: 10-20-2022 ambulatory Guillermo Thornton Other [employer] Other Start: 10-20-2022 Telephone encounter Guillermo Thornton [facility] Start: 09-01-2022 End: 09-01-2022 ambulatory Guillermo Thornton Other [employer] Other Start: 09-01-2022 Telephone encounter Guillermo Thornton [facility] Start: 08-31-2022 End: 08-31-2022 ambulatory Asa Moeller Other [employer] Other Start: 08-31-2022 Telephone encounter Asa Moeller [facility] Start: 08-24-2022 End: 08-24-2022 ambulatory Sugar Knight Other [employer] Other Start: 08-24-2022 Office outpatient vi sit 25 minutes Sugar Knight [facility] Start: 08-19-2022 End: 08-19-2022 ambulatory Asa Moeller Other [employer] Other Start: 08-19-2022 Office outpatient vi sit 15 minutes Asa Moeller [facility] Start: 08-16-2022 End: 08-16-2022 ambulatory Asa Moeller Other [employer] Other Start: 08-16-2022 Telephone encounter Asa Moeller [facility] Start: 08-11-2022 End: 08-11-2022 ambulatory Guillermo Thornton Other [employer] Other Start: 08-11-2022 Telephone encounter Guillermo Sampson Gastroenter[facility] Start: 08-03-2022 (Procedure) Short Asa Moeller [facility] Start: 08-03-2022 End: 08-03-2022 Admission to same day surgery center LUIS Du Work Phone: [facility] Start: 08-03-2022 End: 08-03-2022 ambulatory LUIS Du Work Phone: [facility] Work Phone: Start: 07-28-2022 End: 07-28-2022 ambulatory Sugar Knight Other [employer] Other Start: 07-28-2022 Office outpatient vi sit 25 minutes Sugar Knight [facility] Start: 07-19-2022 End: 07-19-2022 ambulatory Guillermo Thornton Other [employer] Other Start: 07-19-2022 Telephone encounter Guillermo Sampson Gastroenter[facility] Start: 06-28-2022 End: 06-28-2022 ambulatory Sugar Knight Other [employer] Other Start: 06-28-2022 Office outpatient vi sit 25 minutes Sugar Knight [facility] Start: 06-01-2022 (Procedure) Short Asa Moeller [facility] Start: 06-01-2022 End: 06-01-2022 Admission to same day surgery center LUIS Du Work Phone: [facility] Start: 06-01-2022 End: 06-01-2022 ambulatory LUIS Du Work Phone: [facility] Work Phone: Start: 05-24-2022 End: 05-24-2022 ambulatory Asasachin Moeller Other [employer] Other Start: 05-24-2022 Office outpatient vi sit 15 minutes Asasachin Moeller [facility] Start: 05-17-2022 End: 05-17-2022 ambulatory Yung Figueroa Other [employer] Other Start: 05-17-2022 Telephone encounter Yung Butts ck [facility] Start: 04-27-2022 End: 04-27-2022 ambulatory Asa Juarezky Other [employer] Other Start: 04-27-2022 Office outpatient vi sit 25 minutes Asa Sajan [facility] Start: 04-15-2022 End: 04-15-2022 Patient encounter procedure LUIS Du Work Phone: [facility] [place] Start: 03-31-2022 End: 03-31-2022 ambulatory Asasachin Moeller Other [employer] Other Start: 03-31-2022 Office outpatient ne w 45 minutes Asasachin Moeller [facility] Start: 03-01-2022 End: 03-01-2022 ambulatory Jeff Mandel Other [facility] Other Start: 03-01-2022 Telephone encounter Jeff Mandel [facility] Start: 02-17-2022 End: 02-17-2022 ambulatory Jeff Mandel Other [facility] Other Start: 02-17-2022 Telephone encounter Jeff Mandel [facility] Start: 12-23-2021 End: 12-23-2021 ambulatory Jeff Mandel Other [facility] Other Start: 12-23-2021 Telephone encounter Jeff Mandel [facility] Start: 12-20-2021 End: 12-20-2021 ambulatory Bird Slade Other [facility] Other Start: 12-20-2021 Office outpatient vi sit 15 minutes Bird Slade [facility] Start: 12-15-2021 End: 12-15-2021 ambulatory Jeff Mandel Other [facility] Other Start: 12-15-2021 Telephone encounter Jeff Mandel [facility] Start: 09-30-2021 End: 09-30-2021 ambulatory Jeff Mandel Other [facility] Other Start: 09-30-2021 Telephone encounter Jeff Mandel [facility] Start: 09-20-2021 End: 09-20-2021 ambulatory Jeff Mandel Other [facility] Other Start: 09-20-2021 Telephone encounter Jeff Mandel [facility] Start: 09-17-2021 End: 09-17-2021 ambulatory Jeff Mandel Other [facility] Other Start: 09-17-2021 Telephone encounter Jeff Mandel [facility] Start: 09-01-2021 End: 09-01-2021 ambulatory Bird Slade Other [facility] Other Start: 09-01-2021 Telephone encounter Bird Dubon [facility] [place] Start: 08-25-2021 End: 08-25-2021 ambulatory Jeff Mandel Other [facility] [employer] Other Start: 08-25-2021 Office outpatient vi sit 25 minutes Jeff Mandel [facility] Gastroenterology Start: 08-23-2021 End: 08-23-2021 ambulatory Jeff Mandel Other [facility] Other Start: 08-23-2021 Office outpatient ne w 30 minutes Bird Slade [facility] Neurosurgery Start: 08-23-2021 Telephone encounter Jeff Mandel [facility] Gastroenterology Start: 10-28-2020 End: 10-28-2020 Patient encounter procedure Jd Du -Pre-Surgical Testing Start: 05-13-2020 End: 05-14-2020 Patient encounter procedure [facility] Facility: Start: 04-23-2018 End: 04-27-2018 Evaluation and management of inpatient [facility] Procedures Date Procedure Procedure Detail Performing Clinician Start: 12-12-2024 Ultrasonography of abdomen Francisca Wade MD Work Phone: Start: 12-04-2024 MEASURE POST VOID RESIDUAL Vivek eller PA Work Phone: Start: 08-27-2024 MRI of lumbar spine with contrast Francisca Wade MD Work Phone: Start: 08-27-2024 XR pre/post mri xray Francisca Wade MD Work Phone: Start: 08-05-2024 End: 08-05-2024 Needle emg ea extremty w/paraspinl area complete Erick Naylor DO Work Phone: Start: 07-25-2024 Arthrocentesis aspir&/inj major jt/bursa w/o us Ang Figueroa MD Work Phone: Start: 06-20-2024 Arthrocentesis aspir&/inj major jt/bursa w/o us Ang Figueroa MD Work Phone: Start: 03-14-2024 Follow-up visit Follow-up ANG FIGUEROA Start: 02-03-2024 Gluc bld gluc mntr dev cleared fda spec home use Leatha Mcguire MD Work Phone: Start: 02-03-2024 Basic metabolic panel calcium total Kandy Mcguire MD Work Phone: Start: 02-03-2024 Adult depression screening assessment Genevieve Davis MD Work Phone: Start: 02-02-2024 Dup-scan xtr veins unilateral/limited study Leatha Mcguire MD Work Phone: Start: 02-02-2024 End: 02-02-2024 Basic metabolic panel calcium total Kandy Mcguire MD Work Phone: Start: 02-01-2024 Gluc bld gluc mntr dev cleared fda spec home use Leatha Mcguire MD Work Phone: Start: 02-01-2024 Gluc bld gluc mntr dev cleared fda spec home use Leatha Mcguire MD Work Phone: Start: 02-01-2024 Blood count complete auto&auto difrntl wbc Marc Keys MD Work Phone: Start: 02-01-2024 End: 02-01-2024 Basic metabolic panel calcium total Kandy Mcguire MD Work Phone: Start: 02-01-2024 Gluc bld gluc mntr dev cleared fda spec home use Leatha Mcguire MD Work Phone: Start: 01-31-2024 Gluc bld gluc mntr dev cleared fda spec home use Leatha Mcguire MD Work Phone: Start: 01-31-2024 End: 01-31-2024 Gluc bld gluc mntr dev cleared fda spec home use Leatha Mcguire MD Work Phone: Start: 01-31-2024 Gluc bld gluc mntr dev cleared fda spec home use Leatha Mcguire MD Work Phone: Start: 01-31-2024 Gluc bld gluc mntr dev cleared fda spec home use Leatha Mcguire MD Work Phone: Start: 01-31-2024 Basic metabolic panel calcium total Albe rt Fritz Frazier MD Work Phone: Start: 01-30-2024 Gluc bld gluc mntr dev cleared fda spec home use Leatha Mcguire MD Work Phone: Start: 01-30-2024 Gluc bld gluc mntr dev cleared fda spec home use Leatha Mcguire MD Work Phone: Start: 01-30-2024 Radiologic examination femur minimum 2 views Jalen Gan MD Work Phone: Start: 01-30-2024 Fluoroscopy up to 1 hour physician/qhp time Ang Figueroa MD Work Phone: Start: 01-30-2024 End: 01-30-2024 Removal implant deep Ang Figueroa MD Work Phone: Start: 01-30-2024 End: 01-30-2024 Basic metabolic panel calcium total Albe rt Fritz Frazier MD Work Phone: Start: 01-29-2024 Gluc bld gluc mntr dev cleared fda spec home use Demond Frazier MD Work Phone: Start: 01-29-2024 Urnls dip stick/tablet rgnt auto w/o microscopy Demond Frazier MD Work Phone: Start: 01-29-2024 Gluc bld gluc mntr dev cleared fda spec home use Demond Frazier MD Work Phone: Start: 01-29-2024 Gluc bld gluc mntr dev cleared fda spec home use Demodn Frazier MD Work Phone: Start: 01-29-2024 PULSE OXIMETRY, SPOT Demond Frazier MD Work Phone: Start: 01-29-2024 Antibody screen Leatha Mcguire MD Work Phone: Start: 01-29-2024 Basic metabolic panel calcium total Jasen vasu Keys MD Work Phone: Start: 01-29-2024 Blood typing serologic abo Marc alonso MD Work Phone: Start: 01-22-2024 Gluc bld gluc mntr dev cleared fda spec home use Jeff Martin MD Work Phone: Start: 01-22-2024 Gluc bld gluc mntr dev cleared fda spec home use Jeff Martin MD Work Phone: Start: 01-22-2024 Gluc bld gluc mntr dev cleared fda spec home use Jeff Martin MD Work Phone: Start: 01-22-2024 Basic metabolic panel calcium total Maha mmad Imani DO Work Phone: Start: 01-22-2024 Adult depression screening assessment Jalen Gan MD Work Phone: Start: 01-21-2024 Gluc bld gluc mntr dev cleared fda spec home use Jeff Martin MD Work Phone: Start: 01-21-2024 Gluc bld gluc mntr dev cleared fda spec home use Jeff Martin MD Work Phone: Start: 01-21-2024 Radex hip unilateral with pelvis 2-3 views Vilma Beckwith PA-C Work Phone: Start: 01-21-2024 Gluc bld gluc mntr dev cleared fda spec home use Jeff Martin MD Work Phone: Start: 01-21-2024 Gluc bld gluc mntr dev cleared fda spec home use Jeff Martin MD Work Phone: Start: 01-21-2024 Basic metabolic panel calcium total Maha mmad Imani DO Work Phone: Start: 01-20-2024 Gluc bld gluc mntr dev cleared fda spec home use Jeff Martin MD Work Phone: Start: 01-20-2024 Gluc bld gluc mntr dev cleared fda spec home use Jeff Martin MD Work Phone: Start: 01-20-2024 Gluc bld gluc mntr dev cleared fda spec home use Jeff Martin MD Work Phone: Start: 01-20-2024 Gluc bld gluc mntr dev cleared fda spec home use Jeff Martin MD Work Phone: Start: 01-20-2024 Basic metabolic panel calcium total Sand eep S Brielle WILSON Work Phone: Start: 01-19-2024 Gluc bld gluc mntr dev cleared fda spec home use Jeff Martin MD Work Phone: Start: 01-19-2024 Gluc bld gluc mntr dev cleared fda spec home use Jeff Martin MD Work Phone: Start: 01-19-2024 Gluc bld gluc mntr dev cleared fda spec home use Jeff Martin MD Work Phone: Start: 01-19-2024 Gluc bld gluc mntr dev cleared fda spec home use Jeff Martin MD Work Phone: Start: 01-19-2024 Gluc bld gluc mntr dev cleared fda spec home use Jeff Martin MD Work Phone: Start: 01-19-2024 Basic metabolic panel calcium total Sand eep Ozzy Brielle WILSON Work Phone: Start: 01-18-2024 Gluc bld gluc mntr dev cleared fda spec home use Jeff Martin MD Work Phone: Start: 01-18-2024 Gluc bld gluc mntr dev cleared fda spec home use Jeff Martin MD Work Phone: Start: 01-18-2024 Gluc bld gluc mntr dev cleared fda spec home use Jeff Martin MD Work Phone: Start: 01-18-2024 End: 01-18-2024 Radex hip unilateral with pelvis 2-3 views Vilma Beckwith PA-C Work Phone: Start: 01-18-2024 Gluc bld gluc mntr dev cleared fda spec home use Jeff Martin MD Work Phone: Start: 01-18-2024 End: 01-18-2024 INSERTION INTRAMEDULLARY NAIL FEMUR Breezy Figueroa MD Work Phone: Start: 01-18-2024 Radex spine lumbosacral 2/3 views Mary Hannah MD Work Phone: Start: 01-18-2024 Gluc bld gluc mntr dev cleared fda spec home use Jeff Martin MD Work Phone: Start: 01-18-2024 End: 01-18-2024 Basic metabolic panel calcium total Diane Hannah MD Work Phone: Start: 01-17-2024 Urnls dip stick/tablet rgnt auto w/o microscopy Stephen Hannah MD Work Phone: Start: 01-17-2024 Radiologic exam chest single view Edie Arreola PA-C Work Phone: Start: 01-17-2024 Gluc bld gluc mntr dev cleared fda spec home use Jeff Martin MD Work Phone: Start: 01-17-2024 PULSE OXIMETRY, SPOT Stephen Castellanos Work Phone: Start: 01-17-2024 Antibody screen Abad Diallo DO Work Phone: Start: 01-17-2024 Assay of troponin quantitative Geoffrey Mckee DO Work Phone: Start: 01-17-2024 Blood typing serologic abo Edie GASPAR-C Work Phone: Start: 01-17-2024 Radiologic examination femur minimum 2 views Edie GASPAR-C Work Phone: Start: 01-17-2024 Ecg routine ecg w/least 12 lds trcg only w/o i&r Geoffrey Mckee DO Work Phone: Start: 01-17-2024 Cyanocobalamin vitamin b-12 Geoffrey ga DO Work Phone: Start: 11-13-2023 MRI of cervical spine without contrast LUIS Du Work Phone: Start: 11-01-2023 Computed tomography of thoracic spine without contrast LUIS Du Work Phone: Start: 11-01-2023 CT cervical spine without contrast LUIS Du Work Phone: Start: 08-21-2023 Computed tomography of abdomen and pelvis with contrast LUIS Du Work Phone: Start: 06-23-2023 Ultrasonography of liver LUIS Wilkins in Work Phone: Start: 05-16-2023 Ultrasound elastography of liver LUIS Du Work Phone: Start: 04-24-2023 XR pre/post mri xray LUIS Du Work Phone: Start: 04-24-2023 MR thoracic spine wo con LUIS Wilkins in Work Phone: Start: 03-21-2023 Esophagogastroduodenoscopy LUIS cowart Work Phone: Start: 08-03-2022 Injection of local anesthetic into sacroiliac joint LUIS Du Work Phone: Start: 06-01-2022 Local anesthetic sacral epidural block LUIS Du Work Phone: Start: 04-15-2022 MR lumbar spine wo con LUIS Du Work Phone: Start: 04-15-2022 X-ray of lumbar spine, four views LUIS Du Work Phone: Start: 10-28-2020 SARS Antigen (LFIA) Jd Du Plan of Treatment Date Care Activity Detail Author Start: 12-04-2025 Adult BMI Screening Adult BMI Screening [facility] Start: 12-04-2025 Tobacco Screening Tobacco Screening [facility] Start: 08-02-2025 Tobacco Counseling Tobacco Counseling [facility] Start: 07-25-2025 Adult BMI Screening Adult BMI Screening [facility] Start: 07-25-2025 Tobacco Screening Tobacco Screening [facility] Start: 07-18-2025 Adult BMI Follow Up Plan Adult BMI Follow Up Plan [facility] Start: 07-18-2025 Adult BMI Screening Adult BMI Screening [facility] Start: 07-18-2025 Tobacco Screening Tobacco Screening [facility] Start: 06-20-2025 Adult BMI Screening Adult BMI Screening [facility] Start: 06-20-2025 Tobacco Screening Tobacco Screening [facility] Start: 06-07-2025 Adult BMI Screening Adult BMI Screening [facility] Start: 06-07-2025 Tobacco Screening Tobacco Screening [facility] Start: 04-18-2025 Adult BMI Screening Adult BMI Screening [facility] Start: 04-18-2025 Tobacco Screening Tobacco Screening [facility] Start: 04-14-2025 Influenza vaccination [facility] Start: 04-02-2025 Adult BMI Screening Adult BMI Screening [facility] Start: 04-02-2025 Tobacco Screening Tobacco Screening [facility] Start: 03-14-2025 Adult BMI Screening Adult BMI Screening [facility] Start: 03-14-2025 Tobacco Screening Tobacco Screening [facility] Start: 02-21-2025 Adult BMI Screening Adult BMI Screening [facility] Start: 02-20-2025 End: 02-20-2025 Follow-up encounter 02/20/2025 2:30 PM EDT Visit (SP) Office Hematology/Oncology [address] [facility] [address] Zac Crouch MD [address] [facility] [place] [address] 3 month follow up Hematology/Oncology Comment on above: 3 month follow up Start: 02-20-2025 End: 02-20-2025 Patient encounter procedure 02/20/2025 2:15 PM EDT Office Visit [facility] [address] [place] [address] 3 month follow up [facility] Comment on above: 3 month follow up Start: 02-08-2025 Adult BMI Screening Adult BMI Screening [facility] Start: 02-02-2025 Depression Screening Depression Screening [facility] Start: 02-02-2025 Tobacco Screening Tobacco Screening [facility] Start: 01-28-2025 Adult BMI Screening Adult BMI Screening [facility] Start: 01-21-2025 Depression Screening Depression Screening [facility] Start: 01-21-2025 Tobacco Screening Tobacco Screening [facility] Start: 01-16-2025 Adult BMI Screening Adult BMI Screening [facility] Start: 01-16-2025 Tobacco Screening Tobacco Screening [facility] Start: 01-03-2025 End: 01-03-2025 ambulatory 01/03/2025 2:[address] [facility] [address] [place] [address] Komal Hernadez, JOHN.LICENSING REPRESENTATIVE [address] [facility] [place] [address] RTC aftre CELINA/ONC appt Pain Management Comment on above: RTC aftre CELINA/ONC appt Start: 01-03-2025 End: 01-03-2025 Patient encounter procedure 01/03/2025 2:00 PM EDT Office Visit Pain Management [address] [place] [address] Komal Hernadez, HOSPITAL CHIEF FINANCIAL OFFICER.LICENSING REPRESENTATIVE [address] [facility] [address] RTC aftre CELINA/ONC appt Pain Management Comment on above: RTC aftre CELINA/ONC appt Start: 12-16-2024 End: 12-16-2024 Admission to same day surgery center 12/16/2024 9:43 AM EDT - 12/16/2024 10:11 AM EDT Surgery Ambulatory Surgery [address] [place] [address] Abrahan Rinaldi MD [address] [facility] [place] [address] INJECTION(S) STEROID TRANSFORAMINAL EPIDURAL LUMBAR W/IMAGE GUIDANCE FLUORO OR CT Ambulatory Surgery Comment on above: INJECTION(S) STEROID TRANSFORAMINAL EPID URAL LUMBAR W/IMAGE GUIDANCE FLUORO OR CT Start: 12-16-2024 End: 12-16-2024 Njx anes&/strd w/img tfrml edrl lmbr/sac 1 lvl INJECTION(S) STEROID TRANSFORAMINAL EPIDURAL LUMBAR W/IMAGE GUIDANCE FLUORO OR CT Radicular syndrome of right leg History of lumbar laminectomy Diabetic peripheral neuropathy (HCC) 12/16/2024 9:43 AM EDT [facility] [place] Start: 12-16-2024 Subsequent hospital visit by physician 12/16/2024 9:43 AM EDT Hospital Encounter Ambulatory Surgery [address] [place] [address] Abrahan Rinaldi MD [address] [facility] [place], [place] [address] Radicular syndrome of right leg [M54.10], History of lumbar laminectomy [Z98.890], Diabetic peripheral neuropathy (HCC) [E11.42] Ambulatory Surgery Comment on above: Radicular syndrome of right leg [M54.10] , History of lumbar laminectomy [Z98.890], Diabetic peripheral neuropathy (HCC) [E11.42] Start: 11-28-2024 End: 11-28-2024 ambulatory 11/28/2024 4:00 PM EDT Visit (SP) Office Hematology/Oncology [address] [place] [address] [place] [address] Zac Crouch MD [address] [place] [address] [place] [address] Abrahan Rinaldi DX: Thrombocytopenia [D69.6] Hematology/Oncology Comment on above: Ref by Dr Abrahan Rinaldi DX: Thromboc ytopenia [D69.6] Start: 11-28-2024 End: 02-27-2025 COPPER BLOOD [facility] Work Phone: Comment on above: Expected: 11/28/2024, Expires: Start: 11-28-2024 End: 02-27-2025 Zinc [Mass/volume] in Serum or Plasma [facility] Comment on above: Expected: 11/28/2024, Expires: Start: 11-26-2024 End: 11-26-2024 ambulatory 11/26/2024 4:00 PM EDT Visit (SP) Office Hematology/Oncology [address] [facility] [place] [address] Zac Crouch MD [address] [facility] [place] [address] Abrahan Rinadli DX: Thrombocytopenia [D69.6] Hematology/Oncology Comment on above: Ref by Dr Abrahan Rinaldi DX: Thromboc ytopenia [D69.6] Start: 11-22-2024 End: 11-22-2024 Patient encounter procedure 11/22/2024 2:00 PM EDT Office Visit Pain Management [address] [facility] [place] [address] Abrahan Rinaldi MD [address] [facility] [place] [address] Acute right-sided low back pain with right-sided sciatica [M54.41] Pain Management Comment on above: Acute right-sided low back pain with rig ht-sided sciatica [M54.41] Start: 09-19-2024 End: 09-19-2024 Patient encounter procedure 09/19/2024 12:00 PM EST Office Visit [facility] [address] [place] [phone] Dionte Torre PA [address] [place] [address] [facility] Start: 08-05-2024 End: 08-05-2024 Patient encounter procedure 08/05/2024 2:00 PM EST Procedure Visit [facility] [address] [place] [phone] Erick Naylor, DO [address] [place] [id number] Arrived [facility] Comment on above: Arrived Start: 07-25-2024 End: 07-25-2024 Patient encounter procedure [facility] Start: 07-19-2024 Hemoglobin A1c measurement HbA1C [facility] Start: 07-18-2024 End: 07-18-2025 MR Lumbar spine WO and W contrast IV MR lumbar spine with and without contrast Imaging Routine Lumbar radiculopathy, chronic Lumbar spondylosis Chronic midline low back pain without sciatica History of lumbar surgery Expected: 07/18/2024, Expires: 07/18/2025 [facility] Work Phone: Comment on above: Expected: 07/18/2024, Expires: Start: 07-18-2024 End: 07-18-2024 Patient encounter procedure [facility] Start: 07-09-2024 End: 07-09-2025 XR Pelvis and Hip - right 2 Views X-ray hip right 2-3 views with or without pelvis Imaging Routine Closed displaced intertrochanteric fracture of right femur with routine healing, subsequent encounter Expected: 07/09/2024, Expires: 07/09/2025 [facility] Work Phone: Comment on above: Expected: 07/09/2024, Expires: Start: 07-02-2024 End: 07-02-2025 XR Lumbar spine Views AP W right bending and W left bending X-ray spine lumbar flexion and extension only 2 to 3 views Imaging Routine Back pain, unspecified back location, unspecified back pain laterality, unspecified chronicity Expected: 07/02/2024, Expires: 07/02/2025 [facility] Work Phone: Comment on above: Expected: 07/02/2024, Expires: Start: 06-20-2024 End: 06-20-2024 Patient encounter procedure 06/20/2024 2:15 PM EST Office Visit [facility] [address] [place] [address] Ang Figueroa MD [address] [place] [address], [address] [place] [address] [facility] Start: 06-17-2024 End: 06-17-2025 XR Knee - right 1 or 2 Views X-ray knee right 1 or 2 views Imaging Routine Right knee pain, unspecified chronicity Expected: 06/17/2024, Expires: 06/17/2025 [facility] Work Phone: Comment on above: Expected: 06/17/2024, Expires: Start: 04-25-2024 End: 04-25-2024 Patient encounter procedure 04/25/2024 1:15 PM EDT Office Visit [facility] [address] [place] [address] [address] [place] [address] Ang Figueroa MD [facility], [address] [place] [address] [facility] Start: 04-14-2024 COVID-19 Vaccine ( season) COVID-19 Vaccine ( season) [facility] Start: 04-14-2024 COVID-19 Vaccine ( season) COVID-19 Vaccine ( season) [facility] Start: 04-14-2024 Influenza vaccination [facility] Start: 03-14-2024 End: 03-14-2025 XR Pelvis and Hip - right 2 Views X-ray hip right 2-3 views with or without pelvis Imaging Routine Closed displaced intertrochanteric fracture of right femur with routine healing, subsequent encounter Expected: 03/14/2024, Expires: 03/14/2025 [facility] Work Phone: Comment on above: Expected: 03/14/2024, Expires: Start: 03-14-2024 End: 03-14-2024 Patient encounter procedure 03/14/2024 1:00 PM EDT Office Visit [facility] [address] [place] [address] Ang Figueroa MD [facility] [address], [address] [place] [address] [facility] Start: 02-22-2024 End: 02-21-2025 XR Femur - right 2 Views [facility] Work Phone: Comment on above: Ordered: 02/22/2024 Expected: 02/22/2024 , Expires: 02/21/2025 Start: 02-22-2024 End: 02-22-2024 Patient encounter procedure [facility] Start: 02-12-2024 End: 02-12-2024 Patient encounter procedure 02/12/2024 8:15 AM EDT Office Visit [facility] [address] [place] [phone] Ang Figueroa MD [address], [address] [place] [address] [facility] Start: 02-01-2024 End: 02-01-2024 Patient encounter procedure 02/01/2024 9:30 AM EDT Office Visit [facility] [address] [place] [phone] Ang Figueroa MD [address], [address] [place] [address] [facility] Start: 01-31-2024 End: 01-31-2024 Patient encounter procedure 01/31/2024 9:45 AM EDT Office Visit [facility] [address] [place] [address] Chey Lanza MD [address] [place] [address] [facility] Start: 01-29-2024 End: 01-29-2024 Evaluation and management of inpatient [facility] Occupational Therapy Comment on above: Arrived Start: 01-29-2024 End: 01-29-2024 Evaluation and management of inpatient [facility] Inpatient [facility] Physical Therapy Comment on above: Arrived Start: 01-18-2024 End: 01-18-2024 Admission to same day surgery center 01/18/2024 12:45 PM EDT - 01/18/2024 2:45 PM EDT Surgery [address] [phone] Chey Lanza MD [address] [place] [address] INSERTION INTRAMEDULLARY NAIL FEMUR-TFNA HIP FX [facility] Comment on above: INSERTION INTRAMEDULLARY NAIL FEMUR-TFNA HIP FX Start: 01-18-2024 End: 01-18-2024 INSERTION INTRAMEDULLARY NAIL FEMUR INSERTION INTRAMEDULLARY NAIL FEMUR Closed displaced intertrochanteric fracture of right femur, initial encounter ([facility]) 01/18/2024 12:45 PM EDT [facility] Start: 01-18-2024 Subsequent hospital visit by physician 01/18/2024 12:45 PM EDT Hospital Encounter [address] [phone] Chey Lanza MD [address] [place] [address] [facility] Start: 01-17-2024 End: 01-16-2025 XR Pelvis and Hip - right 2 Views X-ray hip right 2-3 views with or without pelvis Imaging Routine Closed displaced intertrochanteric fracture of right femur with routine healing, subsequent encounter Expected: 01/17/2024, Expires: 01/16/2025 [facility] Work Phone: Comment on above: Expected: 01/17/2024, Expires: Start: 12-01-2023 Patient referral [facility] Work Phone: Start: 2023 Prostate specific antigen measurement Prostate Cancer Screening Discussion [facility] Start: 05-16-2023 [facility] Start: 04-14-2023 COVID-19 Vaccine ( season) COVID-19 Vaccine () [facility] Start: 03-21-2023 End: 03-21-2023 [facility] Start: 08-03-2022 [facility] Start: 06-01-2022 [facility] Start: 2018 Administration of varicella zoster vaccine Zoster (Shingles) Vaccine (1 of 2) [facility] Start: 2018 Shingrix Vaccine (1 of 2) Shingrix Vaccine (1 of 2) [facility] Start: 2013 Prostate specific antigen measurement Prostate Cancer Screening Discussion [facility] Start: 2013 Screening for malignant neoplasm of colon [facility] Start: 1987 DTaP,Tdap and Td Vaccines (1 - Tdap) DTaP,Tdap and Td Vaccines (1 - Tdap) [facility] Start: 1987 Hepatitis B Vaccine (1 of 3 - 19+ 3-dose series) Hepatitis B Vaccine (1 of 3 - 19+ 3-dose series) [facility] Start: 1987 Pneumococcal Vaccine: 50+ (1 of 2 - PCV) Pneumococcal Vaccine: 50+ (1 of 2 - PCV) [facility] Start: 1987 Urine microalbumin profile DTaP,Tdap,Td Vaccine (1 - Tdap) [facility] Start: 1986 Adult BMI Follow Up Plan Adult BMI Follow Up Plan [facility] Start: 1986 Annual PCP Team Chronic Disease Visit Annual PCP Team Chronic Disease Visit [facility] Start: 1986 Anxiety Screening Anxiety Screening [facility] Start: 1986 BP Controlled (<130/80) BP Controlled (<130/80) [facility] Start: 1986 Depression Screening Depression Screening [facility] Start: 1986 Diabetic foot examination Diabetic Foot Exam [facility] Start: 1986 Hepatitis B surface antibody level LDL Cholesterol [facility] Start: 1986 HIV screening HIV Screening [facility] Start: 1980 Depression Screening Depression Screening [facility] Start: 1978 Diabetic foot examination Diabetic Foot Exam [facility] Start: 1978 Glaucoma screening Dilated Retinal Exam [facility] Start: 1978 Hepatitis B screening Urine Albumin:Creatinine Ratio [facility] Start: 1968 Glaucoma screening Diabetic Ophthalmology Exam [facility] Start: 1968 Medicare Annual Wellness (AWV) Medicare Annual Wellness (AWV) [facility] Start: 1968 Screening for malignant neoplasm of colon [facility] Start: 1968 Tobacco Counseling Tobacco Counseling [facility] Start: 1968 Urine screening for protein Urine Microalbumin [facility] End: 02-04-2024 Basic metabolic 2000 panel - Serum or Plasma Basic Metabolic Panel Lab Routine Lab max of 3 days, Daily, for lab use only for 3 Days starting 02/02/2024 until 02/04/2024, 2 completed [facility] Comment on above: Lab max of 3 days, Daily, for lab use on ly for 3 Days starting 02/02/2024 until 02/04/2024, 2 completed Bedside Glucose *Place/Obtain serum glucose if >500(>600 [facility]) per glucometer. Bedside Glucose *Place/Obtain serum glucose if >500(>600 MRH) per glucometer. Point of Care Testing Routine 4X Daily (AC and at bedtime) until discontinued starting 01/29/2024, 15 completed [facility] Comment on above: 4X Daily (AC and at bedtime) until disco ntinued starting 01/29/2024, 15 completed Bedside Glucose *Place/Obtain serum glucose if >500(>600 MRH) per glucometer. Bedside Glucose *Place/Obtain serum glucose if >500(>600 [facility]H) per glucometer. Point of Care Testing Routine 4X Daily (AC and at bedtime) until discontinued starting 02/03/2024 [employer] Comment on above: 4X Daily (AC and at bedtime) until disco ntinued starting 02/03/2024 End: 02-04-2024 CBC W Auto Differential panel - Blood CBC auto differential Lab Routine Lab max of 3 days, Daily, for lab use only for 3 Days starting 02/02/2024 until 02/04/2024, 2 completed [employer] Work Phone: Comment on above: Lab max of 3 days, Daily, for lab use on ly for 3 Days starting 02/02/2024 until 02/04/2024, 2 completed Comprehensive metabo lic 2000 panel - Serum or Plasma [facility] End: 07-18-2025 EMG With NCV EMG With NCV Neurology Routine Left cervical radiculopathy Bilateral hand pain Bilateral hand numbness Cervical spondylosis 1 Occurrences starting 07/18/2024 until 07/18/2025 [employer] Comment on above: 1 Occurrences starting 07/18/2024 until 07/18/2025 Hepatitis C virus Ig G Ab [Presence] in Serum or Plasma by Immunoassay [facility] Inject si joint arthrgrphy&/anes/steroid w/margo INJECTION BLOCK SACROILIAC JOINT Disorder of sacrum [place] [facility] Oxygen Therapy - Maintain SpO2: 90%; *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 for O2: Yes; Document: \[employer]Yoyo\epi c\EPIC_Reference\Orders\ Respiratory Care Guidelines\CPG Oxygen 2022.pdf Oxygen Therapy - Maintain SpO2: 90%; *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 for O2: Yes; Document: \[employer]oyo\epic \EPIC_Reference\Orders\Re spiratory Care Guidelines\CPG Oxygen 2022.pdf Respiratory Care Routine As Needed until discontinued starting 01/29/2024 [employer] Work Phone: Comment on above: As Needed until discontinued starting Oxygen Therapy - Maintain SpO2: 90%; *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 for O2: Yes; Document: \[employer]oyo\epi c\EPIC_Reference\Orders\ Respiratory Care Guidelines\CPG Oxygen 2022.pdf Oxygen Therapy - Maintain SpO2: 90%; *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 for O2: Yes; Document: \[employer].org\epic \EPIC_Reference\Orders\Re spiratory Care Guidelines\CPG Oxygen 2022.pdf Respiratory Care Routine As Needed until discontinued starting 01/30/2024 [employer] Work Phone: Comment on above: As Needed until discontinued starting Patient Education [facility] Work Phone: Patient referral [facility] Work Phone: End: 12-04-2025 Prostatic specific antigen, diagnostic Prostatic specific antigen, diagnostic Lab Routine Benign prostatic hyperplasia, unspecified whether lower urinary tract symptoms present 1 Occurrences starting 12/04/2024 until 12/04/2025 [employer] Work Phone: Comment on above: 1 Occurrences starting 12/04/2024 until 12/04/2025 End: 01-29-2024 Type and screen(includes indirect yolanda) Type and screen(includes indirect yolanda) Blood Bank Routine Once for 1 Occurrences starting 01/29/2024 until 01/29/20[facility] Comment on above: Once for 1 Occurrences starting 01/29/20 until 01/29/2024 US Abdomen limited [facility] US.doppler Lower extremity vein - right Vas venous duplex lwr single right Vascular Ultrasound STAT Localized swelling of right lower extremity 02/22/2024 2:44 PM EDT [facility] Immunizations Immunization Date Immunization Notes Care Provider Fa cility NEGATED: Highlighted row has not occurred!04-25-2018 influenza, injectable, quadrivalent, preservative free Mratha Faulkner APRN.LICENSING REPRESENTATIVE Work Phone: [facility] Comment on above: Deferred: Patient Re fused - wants to wait Payers Date Payer Category Payer Self-pay [id number] 2017 Medicaid [id number] 2017 Unknown [id number] 2012 Medicare [id number] 2012 Medicare [id number] 1968 Unknown [id number] 2.16.84 0.1.368297.3.579.2.593 1968 Unknown [id number] 2.16.8 40.1.814079.3.579.2.1285 1968 Unknown [id number] 2.16.8 40.1.101232.3.579.2.1285 1968 Unknown [id number] 2.16.8 40.1.287203.3.579.2.1285 1968 Unknown [id number] 2.16.8 40.1.504199.3.579.2.1285 1968 Unknown [id number] 2.16.8 40.1.867593.3.579.2.1285 1968 Unknown [id number] 2.16.8 40.1.653649.3.579.2.1285 1968 Unknown [id number] 2.16.8 40.1.754670.3.579.2.1285 1968 Unknown [id number] 2.16.8 40.1.801384.3.579.2.1285 1968 Unknown [id number] 2.16.8 40.1.921069.3.579.2.1285 1968 Unknown [id number] 2.16.8 40.1.029038.3.579.2.1285 1968 Unknown [id number] 2.16.8 40.1.462309.3.579.2.1285 1968 Unknown [id number] 2.16.8 40.1.674279.3.579.2.1285 1968 Unknown [id number] 2.16.8 40.1.035772.3.579.2.1285 1968 Unknown [id number] 2.16.8 40.1.832742.3.579.2.1285 1968 Unknown [id number] 2.16.8 40.1.840415.3.579.2.1285 1968 Unknown [id number] 2.16.8 40.1.125677.3.579.2.1285 1968 Unknown [id number] 2.16.8 40.1.850161.3.579.2.1285 1968 Unknown [id number] 2.16.8 40.1.863843.3.579.2.1285 1968 Unknown [id number] 2.16.8 40.1.897201.3.579.2.1285 1968 Unknown [id number] 2.16.8 40.1.829345.3.579.2.1285 1968 Unknown [id number] 2.16.8 40.1.860410.3.579.2.1285 1968 Unknown [id number] 2.16.8 40.1.504096.3.579.2.1285 1968 Unknown [id number] 2.16.8 40.1.713122.3.579.2.1285 1968 Unknown [id number] 2.16.8 40.1.022904.3.579.2.1285 1968 Unknown [id number] 2.16.8 40.1.740041.3.579.2.1285 1968 Unknown [id number] 2.16.8 40.1.049954.3.579.2.1285 1968 Unknown [id number] 2.16.84 0.1.262323.3.579.2.1258 1968 Unknown [id number] 2.16.84 0.1.885059.3.579.2.1258 1968 Unknown [id number] 2.16.84 0.1.454184.3.579.2.1258 1968 Unknown [id number] 2.16.84 0.1.257204.3.579.2.1259 1968 Unknown [id number] 2.16.84 0.1.084996.3.579.2.9 1968 Unknown [id number] 2.16. 840.1.635365.3.579.2.196 1968 Unknown [id number] 2.16. 840.1.927312.3.579.2.196 1968 Unknown [id number] 2.16. 840.1.180177.3.579.2.1285 1968 Unknown [id number] 2.16. 840.1.617053.3.579.2.1285 1968 Unknown [id number] 2.16.8 40.1.257209.3.579.2.1285 1968 Unknown [id number] 2.16.8 40.1.625577.3.579.2.1285 1968 Unknown [id number] 2.16.8 40.1.716675.3.579.2.1285 1968 Unknown [id number] 2.16.8 40.1.437983.3.579.2.1285 1968 Unknown [id number] 2.16.8 40.1.702487.3.579.2.1285 1968 Unknown [id number] 2.16.8 40.1.865159.3.579.2.1285 1968 Unknown [id number] 2.16.8 40.1.619467.3.579.2.1285 1968 Unknown [id number] 2.16.8 40.1.230345.3.579.2.1285 1968 Unknown [id number] 2.16.8 40.1.745640.3.579.2.1285 1968 Unknown [id number] 2.16.8 40.1.856865.3.579.2.1286 1968 Unknown [id number] 2.16.8 40.1.270231.3.579.2.1286 1968 Unknown [id number] 2.16.8 40.1.313706.3.579.2.1286 1968 Unknown [id number] 2.16. 840.1.367539.3.579.2.128 1968 Unknown [id number] 2.16. 840.1.052474.3.579.2.1286 1968 Unknown [id number] 2.16.8 40.1.184305.3.579.2.1286 1968 Unknown [id number] 2.16.8 40.1.079661.3.579.2.1286 1961 Medicare [id number] Unknown [id number] Unknown [id number] 2.16.8 40.1.591668.3.579.2.531 Unknown [id number] 2.16.8 40.1.500704.3.579.2.531 Social History Date Type Detail Facility Start: 04-06-2018 End: 10-14-2020 Tobacco smoking status ORIS Ex-smoker (finding) [facility] Start: 1970 Sex Assigned At Male [facility] Start: 01-09-2024 End: 11-22-2024 Sex Assigned At [facility] Start: 10-30-2020 End: 03-21-2023 Tobacco smoking status ORIS Current some day smoker [facility] Start: 11-01-2023 End: 02-28-2024 Tobacco smoking status NHIS Smoker (finding) [facility] Start: 12-06-1989 End: 12-04-2024 Tobacco smoking status ORIS Smokes tobacco daily [facility] Start: 12-06-1989 End: 08-21-2014 History of tobacco use Cigarette Smoker [facility] Start: 04-06-2018 End: 12-12-2023 Tobacco use and exposure Smokeless tobacco non-user [facility] Start: 01-09-2024 End: 12-04-2024 Alcoholic beverage intake Ex-drinker (finding) [facility] Start: 01-09-2024 End: 11-22-2024 History of Social function [facility] Start: 08-11-2021 Gender identity Identifies as male gender (finding) [facility] Start: 08-11-2021 Sexual orientation Heterosexual (cecille lewis) [facility] Has the [employer] threatened to shut off services in your home in past 12Mo No [facility] Are you now , , , , never or living with a partner? Never [facility] How often to you hav e a drink containing alcohol? Never [facility] How many standard drinks containing alcohol do you have on a typical day? Patient does not drink [facility] Do you feel stress - tense, restless, nervous, or anxious, or unable to sleep at night because your mind is troubled all the time - these days [OSQ] To some extent [facility] Start: 08-09-2016 End: 12-13-2024 Sex Male (finding) [facility] Start: 01-17-2024 End: 11-28-2024 Alcoholic beverage intake Current non-drinker of alcohol (finding) [facility] Are you now , , , , never or living with a partner? [facility] Do you feel stress - tense, restless, nervous, or anxious, or unable to sleep at night because your mind is troubled all the time - these days [OSQ] Not at all [facility] Medical Equipment Procedure Code Equipment Code Equipment Origin al Text Equipment Identifier Dates Repair, hernia, inguinal, with mesh FDA Start: 06-14-2019 Repair, hernia, inguinal, with mesh [id number] FDA Start: 06-14-2019 Repair, hernia, inguinal, with mesh [id number] FDA Start: 06-14-2019 Repair, hernia, inguinal, with mesh [id number] FDA Start: 06-14-2019 Repair, hernia, inguinal, with mesh [id number] FDA Start: 06-14-2019 Repair, hernia, inguinal, with mesh [id number] FDA Start: 06-14-2019 Repair, hernia, inguinal, with mesh [id number] FDA Start: 06-14-2019 Repair, hernia, inguinal, with mesh [id number] FDA Start: 06-14-2019 Repair, hernia, inguinal, with mesh [id number] FDA Start: 06-14-2019 Repair, hernia, inguinal, with mesh [id number] FDA Start: 06-14-2019 Repair, hernia, inguinal, with mesh [id number] FDA Start: 06-14-2019 Repair, hernia, inguinal, with mesh [id number] FDA Start: 06-14-2019 Repair, hernia, inguinal, with mesh [id number] FDA Start: 06-14-2019 Repair, hernia, inguinal, with mesh [id number] FDA Start: 06-14-2019 Repair, hernia, inguinal, with mesh [id number] FDA Start: 06-14-2019 Repair, hernia, inguinal, with mesh [id number] FDA Start: 06-14-2019 Abdominal hernia surgical mesh, composite-polymer [id number] FDA Start: 05-13-2019 [id number] Start: 09-14-2018 Cable Orth Lcp 7 50mm Ss 1.7mm Crmp Ns - [id number] Start: 01-30-2024 Mesh [id number] Pp Pcl Macroporous Parietene Ds 2.4mm Comp Abs Rpl [id number] - [id number] - [id number] Start: 10-27-2021 Nail Im 170mm 12 mm 125d Cnn Tfn-Adv Lat Rlf Cut Ti Niobium - [id number] Start: 01-18-2024 Nail Im 440mm 12 mm 125d Cnn Tfn-Adv Lat Rlf Cut Ti Niobium - [id number] Start: 01-30-2024 Screw Bn 95mm 10 .35mm Cnn Ti Al Niobium Tfn-Adv 3.5mm Strl - [id number] Start: 01-18-2024 Screw Bn 38mm 5m m Lck X25 Im Nl - [id number] Start: 01-18-2024 Screw Bn 95mm 10 .35mm Cnn Ti Al Niobium Tfn-Adv 3.5mm Strl - [id number] Start: 01-30-2024 Screw Bn 58mm 5m m Lck X25 Im Nl - [id number] Start: 01-30-2024 Screw Bn 44mm 5m m Lck X25 Im Nl - [id number] Start: 01-30-2024 Goals Date Patient Goal Desired Activity /State Personal health goal Comment on above: Formatting of this n ote might be different from the original. Evaluation of progress towards goal: Participating in therapy Personal health goal Comment on above: Formatting of this n ote might be different from the original. Evaluation of progress towards goal: pt plans to return [facility] [place] [place] Personal health goal Comment on above: Formatting of this n ote might be different from the original. Evaluation of progress towards goal: participating in therapy Personal health goal Comment on above: Formatting of this n ote might be different from the original. Evaluation of progress towards goal: Safe dc transition from hospital to home with family support. Personal health goal Comment on above: Formatting of this n ote might be different from the original. Evaluation of progress towards goal: Discharge home with family support/ self care Personal health goal Comment on above: Formatting of this n ote might be different from the original. Evaluation of progress towards goal: possible rehab placement vs home pending progress, recommendations and pt decision Functional Status Date Assessment Result Facility 04-27-2018 Are you deaf, or do you have serious difficulty hearing No 04/27/2018 4:56 PM Brennen Tucker RN No [facility] 04-27-2018 Are you blind, or do you have serious difficulty seeing, even when wearing glasses No 04/27/2018 4:56 PM Brennen Tucker RN No [facility] 04-27-2018 Do you have serious difficulty walking or climbing stairs No 04/27/2018 4:56 PM Brennen Tucker RN No [facility] 04-27-2018 Do you have difficul ty dressing or bathing No 04/27/2018 4:56 PM Brennen Tucker RN No [facility] 04-27-2018 Because of a physica l, mental, or emotional condition, do you have difficulty doing errands alone such as visiting a physician's office or shopping No 04/27/2018 4:56 PM EDT Brennen Ramsey RN No [facility] Mental Status Date Assessment Result Facility 04-27-2018 Because of a physica l, mental, or emotional condition, do you have serious difficulty concentrating, remembering, or making decisions No 04/27/2018 4:56 PM EDT Brennen Ramsey RN No [facility] Clinical Notes 08-23-2021 to 12-19-2024 Telephone Encounter - No Echols RN - 12/19/2024 1:50 PM EDTTelephone Encounter - No Echols RN - 12/19/2024 1:50 PM EDTTelephone Encounter - Citlalli Layton LPN - 12/18/2024 2:18 PM EDT Note Date & Type Note Facility 12-19-2024 Telephone encount er Note Patient calling back reporting 50% pain relief- mostly in the lower back. Unable to give a percentage of functional improvement. States he has been sick for the last coupe days and has not been out of bed much. He has VV with Komal Hernadez on 01/03. Will schedule 4-6 week follow up at that visit per patient. [facility] 12-19-2024 Miscellaneous Notes Formattin g of this note might be different from the original. Patient calling back reporting 50% pain relief- mostly in the lower back. Unable to give a percentage of functional improvement. States he has been sick for the last coupe days and has not been out of bed much. He has VV with Komal Hernadez on 01/03. Will schedule 4-6 week follow up at that visit per patient. Message left for patient to call in with an update. Please document the % (40%, 50%,etc) of improvement and any functional improvement since his procedure with Dr. Rinaldi on 12/16/24. Right L5-S1 Transforaminal Epidural Steroid injection # 1 Pre pain: 8 Post pain: 7 Plan: Return to clinic in 4-6 weeks for follow up. documented in this encounter [facility] 12-18-2024 Telephone encount er Note Message left for patient to call in with an update. Please document the % (40%, 50%,etc) of improvement and any functional improvement since his procedure with Dr. Rinaldi on 12/16/24. Right L5-S1 Transforaminal Epidural Steroid injection # 1 Pre pain: 8 Post pain: 7 Plan: Return to clinic in 4-6 weeks for follow up. [facility] 12-12-2024 Radiology Diagnostic study note [facility] Main [place] [address] [place] [address] Ultrasound Report Signed Patient: Ruth Smith MR #: [id number] : 1970 Acct:[id number] Age/Sex: 54 / M ADM Date: 5 Loc: Room: Type: [facility] Attending Dr: Guillermo Thornton MD Ordering Provider: Guillermo Thornton MD Date of Service: 12/12/24 US/US abdomen limited: K74.60 - Unspecified cirrhosisof liver Copies to: Guillermo Thornton MD~ LIMITED ABDOMINAL ULTRASOUND: CLINICAL HISTORY: Cirrhosis/fatty liver COMPARISON: CT 08/21/2023 TECHNIQUE: Grayscale and color Doppler images of the right upper quadrant organswere obtained. FINDINGS: Pancreas: Not visualized Liver: Course and heterogeneous echotexture. Multiple hypoechoic structures identified within notably the left lower lobe noted. Liver enlarged 20.1 cm. Hepatopedal flow at level of main portal vein. Gallbladder: Echogenic debris, mildly distended measuring greater than 5 cm. [#Is negative. Borderline wall thickening 2.9 mm. CBD: 4.9 mm US/US abdomen limited IMPRESSION: DISTENDED GALLBLADDER WITH BORDERLINE WALL THICKENING AND QUESTIONABLE LAYERING SLUDGE OR GALLSTONES.. HETEROGENEOUS LIVER NONVISUALIZATION OF PANCREAS Impression dictated by: Thierry Kuo M.D. 12/12/2024 7:59 PM Dictation Location: [place] [address] Tech: Keren Hope Transcribed By: YAZ 12/12/241958 Dictated By: Thierry Kuo MD 12/12/241954 Signed By: 12/12/241958 [facility] Work Phone: 12-05-2024 Evaluation note Diagnosis Onset Date Resolution Cirrhosis acute December 05 1:16pm Esophageal varices acute December 05, 2024 1:16pm GERD (gastroesophageal reflux disease) acute December 05, 2024 1:16pm Hepatic encephalopathy acute Ap 2024 1:16pm Irritable bowel syndrome with diarrhea acute December 05, 2024 1:16pm Personal history of colon cancer acute December 05, 2024 1:16pm [facility] Work Phone: 1(397) 832-568004-23-2025 Evaluation + Plan note* Assessment & Plan Note - HUBERT Wright - 12/04/2024 4:15 PM EDTAssociated Problem(s): Difficulty urinating We discussed that he may need urodynamics as well. [facility] Onyu [id number] Miscellaneous Notes* Assessment & Plan Note - HUBERT Wright - 12/04/2024 4:15 PM EDTAssociated Problem(s): Difficulty urinating We discussed that he may need urodynamics as well. [facility] [id number] History of Present illness Narrative* HUBERT Wright - 12/04/2024 3:30 PM EDT Images from the original note were not included. [address] [facility] [address] [facility] [id number] Patient: Ruth Smith Date of : 1970 Encounter Date: 12/04/2024 History of Present Illness: The patient is a 54 y.o. male, a new patient, and is here for difficulty urinating. He saw his PCP 10/10/2024. At that appointment he mentioned that he was having difficulty urinatingand straining to void. He was also having some right-sided back pain. He was already taking Flomax since 2017 and was referred to Urology for further management. Since then he went to the ER 11/12/2024 with back pain /left leg pain and difficulty voiding. Report from CT without contrast states that there were no stones, no collecting system dilatation. UA wasnegative. He reports that they straight cathed him to get a urine specimen He started to have back pain in May and that is when he really started to notice difficulty voiding. He doesn't have any frequency. It takes a while for his stream to start and when it does it is slow. He has postvoid dribbling and intermittent stream. No prior urologic history. He is seeing [facility] for the back pain and is scheduled for a procedure 12/16/24. No dysuria or hematuria. He has a history of cirrhosis and colon cancer. He just found out today that his CEA is up. He meets with GI tomorrow. Postvoid residual as measured by bladder scan is 83 cc Urinalysis today: No results for input(s): EXTPOCURCO , EXTPOCURCH , EXTPOCAPP , EXTPOCURBS , EXTPOCURBIL , EXTPOCUKET , EXTPOCUSPG , EXTPOCUHGB , EXTPOCUPRO , EXTPOCUURO , EXTPOCULEU , EXTPOCUNIT , EXTPOCUWBC , EXTPOCUBLD , EXTPOCURBC , EXTPOCUCRY , EXTPOCUBAC , EXTPOCUTREP , EXTPOCUPH , EXTPOCUL EE in the last 72 hours. Last BUN and creatinine: Lab Results Component Value Date BUN 15 11/12/2024 Lab Results Component Value Date CREATININE 0.86 11/12/2024 Past Medical, Family, and Social History Update: The following portions of the patient's history were reviewed and updated as appropriate: allergies, current medications, past family history, past medical history, past social history, past surgicalhistory and problem list. Past Medical History: Diagnosis Date Allergic 2010 Anxiety 2016 Asthma Back pain Chronic cough from lisinopril Chronic pain disorder Colon cancer ([facility]) 2018 COPD (chronic obstructive pulmonary disease) ([facility]) Depression Diabetes mellitus type 2, controlled ([facility]) Fibromyalgia, primary Fracture of right hip, closed, initial encounter ([facility]) 01/17/2024 GERD (gastroesophageal reflux disease) Hyperlipidemia Hypertension Infectious viral hepatitis 2018 Inflammatory bowel disease 2018 Insulin-treated type 2 diabetes mellitus ([facility]) Joint pain Kidney stones Liver disease Low back pain Neck pain Obesity Osteoarthritis Peptic ulceration 1994 Peripheral neuropathy 2017 Visual impairment Past Surgical History: Procedure Laterality Date BACK SURGERY 1999 Dr. eVto Priest-[facility] L5 ruptured disc per patient COLON SURGERY resection, 2017, [facility] COLONOSCOPY 2021 DAVINCI REPAIR HERNIA VENTRAL N/A 10/27/2021 Performed by Ridge Cedillo MD at [facility] DENTAL SURGERY pt had all teeth removed FRACTURE SURGERY 2023 Hip,and femur HERNIA REPAIR x's 2 INGUINAL HERNIA REPAIR 2019 INSERTION INTRAMEDULLARY NAIL FEMUR Right 01/30/2024 Performed by Ang Figueroa MD at [facility] INSERTION INTRAMEDULLARY NAIL FEMUR-TFNA HIP FX Right 01/18/2024 Performed by Ang Figueroa MD at [facility] ORTHOPEDIC SURGERY 2008 foot, infected foot REMOVAL HARDWARE INTRAMEDULLARY NAIL/KATERYNA FEMUR Right 01/30/2024 Performed by Ang Figueroa MD at [facility] SMALL INTESTINE SURGERY 2018 SPINE SURGERY 2000 UMBILICAL HERNIA REPAIR Family History Problem Relation Age of Onset Heart disease Father Early Father Hypertension Father Colon cancer Paternal Aunt Depression Paternal Aunt Audra Heart disease Maternal Grandmother Arthritis Maternal Grandmother Hypertension Maternal Grandmother Stroke Maternal Grandmother Heart disease Paternal Grandmother Arthritis Paternal Grandmother Stroke Paternal Grandmother Heart disease Paternal Grandfather Arthritis Paternal Grandfather COPD Paternal Grandfather Lung cancer Paternal Grandfather Stroke Paternal Grandfather Depression Mother Arthritis Maternal Grandfather Arthritis Paternal Aunt Colon cancer Paternal Aunt COPD Paternal Uncle Diabetes Maternal Aunt Current Outpatient Medications Medication Sig Dispense Refill albuterol (PROVENTIL HFA;VENTOLIN HFA) 90 mcg/actuation inhaler Inhale 2 puffs every 6 (six) hours as needed for wheezing. carvediloL (COREG) 3.125 mg tablet Take 1 tablet (3.125 mg total) by mouth in the morning and 1 tablet (3.125 mg total) in the evening. Take with meals. citalopram (CeleXA) 20 mg tablet Take 1 tablet (20 mg total) by mouth in the morning. Indications: major depressive disorder. colestipoL (COLESTID) 1 g tablet Take 1 tablet (1 g total) by mouth in the morning. cyclobenzaprine (FLEXERIL) 10 mg tablet Take 1 tablet (10 mg total) by mouth once daily at bedtime. [employer] G7 SENSOR device fenofibrate (LOFIBRA) 160 mg tablet Take 1 tablet (160 mg total) by mouth in the morning. [employer]ASP FLEXTOUCH U-100 INSULIN 100 unit/mL (3 mL) insulin pen gabapentin (NEURONTIN) 300 mg capsule Take 1 capsule (300 mg total) by mouth in the morning and 1 capsule (300 mg total) before bedtime. hydroCHLOROthiazide (HYDRODIURIL) 25 mg tablet hyoscyamine (ANASPAZ,LEVSIN) 0.125 mg tablet Take 1 tablet (0.125 mg total) by mouth in the morningand 1 tablet (0.125 mg total) at noon and 1 tablet (0.125 mg total) in the evening and 1 tablet (0.125 mg total) before bedtime. linagliptin-metFORMIN 2.5-1,000 mg tablet Take 1 tablet by mouth 2 (two) times daily at 0800 and 1500. losartan (COZAAR) 50 mg tablet Take 1 tablet (50 mg total) by mouth nightly. 30 tablet 0 magnesium oxide (MAGOX) 400 mg tablet Take 1 tablet (400 mg total) by mouth in the morning. omeprazole (PriLOSEC) 40 mg capsule Take 1 capsule (40 mg total) by mouth in the morning and at bedtime. ondansetron ODT (ZOFRAN ODT) 4 mg disintegrating tablet Dissolve 1 tablet (4 mg total) on tongue asneeded. OZEMPIC 0.25 mg or 0.5 mg (2 mg/3 mL) pen injector Inject 0.5 mg under the skin once a week. Monday sucralfate (CARAFATE) 1 gram tablet Take 1 tablet (1 g total) by mouth in the morning and 1 tablet (1 g total) at noon and 1 tablet (1 g total) in the evening and 1 tablet (1 g total) before bedtime. tamsulosin (FLOMAX) 0.4 mg capsule Take 1 capsule (0.4 mg total) by mouth nightly. 0 traZODone (DESYREL) 50 mg tablet Take 1 tablet (50 mg total) by mouth nightly. UNIFINE PENTIPS PLUS 31 gauge x 1/4 needle 0 VIBERZI 100 mg tablet Take 1 tablet (100 mg total) by mouth in the morning and 1 tablet (100 mg total) in the evening. Take with meals. XIFAXAN 550 mg tablet Take 1 tablet (550 mg total) by mouth in the morning and at bedtime. LORazepam (ATIVAN) 0.5 mg tablet Take 1 tablet by mouth 90 min prior to MRI and may take 1 tablet 30 min prior if needed for anxiety 2 tablet 0 methylPREDNISolone (MEDROL, NAJMA,) 4 mg tablet follow package directions 21 tablet 0 orphenadrine (NORFLEX) 100 mg 12 hr tablet Take 1 tablet (100 mg total) by mouth 2 (two) times a day as needed for muscle spasms or pain. 14 tablet 0 TRESIBA FLEXTOUCH U-100 100 unit/mL (3 mL) insulin pen Inject 20 Units under the skin in the morning. No current facility-administered medications for this visit. (All medications reviewed and updated by provider since last office visit or hospitalization) Allergies: Insulin glargine Tobacco History: Social History Tobacco Use Smoking Status Every Day Current packs/day: 0.00 Average packs/day: 0.5 packs/day for 44.7 years (22.4 ttl pk-yrs) Types: Cigarettes Start date: 12/06/1989 Last attempt to quit: 08/21/2014 Years since quittin.2 Smokeless Tobacco Never (If patient a smoker, smoking cessation counseling offered) Social History: Social History Substance and Sexual Activity Alcohol Use Not Currently Review of Systems: Constitutional: Change in appetite, Weight loss or gain, Malaise (depression), and Diaphoresis (sweating) Eyes: Patient denies vision changes or diplopia (double vision). Ears, Nose, Nose and Throat: Dysphagia (hard to swallow) Respiratory: Dyspnea (shortness of breath), Cough, and Wheezing Cardiovascular: Patient denies chest pain, palpitations, and shortness of breath. Gastrointestinal: Abdominal pain, Nausea, and Bloating Musculoskeletal: Joint pain/stiffness, Weakness, Swelling, and Backache Neurologic: Weakness and Dizziness Integument: Patient denies rashes and non-healing lesions. Psychiatric: Depression Endocrine: Diabetes and Excessive thirst Blood Disorders: Easy Bruising and Easy bleeding Physical Exam: BP 131/81 Pulse 108 Ht 185.4 cm (6' 1 ) Wt 101.2 kg (223 lb) BMI 29.42 kg/m Constitutional: He appears well-developed. No distress. HENT: Head: Atraumatic. Nose: Nose normal. Eyes: Conjunctivae are normal. Pulmonary/Chest: Effort normal. No respiratory distress. Neurological: He is alert and oriented for age. Gait normal. Skin: Skin is warm and dry. Psychiatric: He has a normal mood and affect. His speech is normal. Rectal: smooth, soft, symmetric Nursing note and vitals reviewed. Assessment and Plan: Carlo was seen today for difficulty urinating. Diagnoses and all orders for this visit: Benign prostatic hyperplasia, unspecified whether lower urinary tract symptoms present - Measure post void residual - Prostatic specific antigen, diagnostic; Future Difficulty urinating - [facility] [place] Measure post void residual Problem List Genitourinary BPH (benign prostatic hyperplasia) - Primary Relevant Orders Measure post void residual (Completed) Prostatic specific antigen, diagnostic Other Difficulty urinating Overview ====12/04/24==== hesitancy and weak stream. Symptoms began when he had worsening back pain. PVR 83. Recent UA negative. Recent CT negative. He agrees to cystoscopy under MAC anesthesia. If symptoms improve after what sounds to be an ablation with [facility], he will call and cancel. At his convenience, he will stop at the lab for a PSA. Current Assessment & Plan We discussed that he may need urodynamics as well. Relevant Orders Measure post void residual (Completed) Follow-up: Juliana will call. PSA at some point HUBERT WRIGHT This note was created with the assistance of a speech recognition program. While intending to generate a timely document that accurately reflects the content of the visit, no guarantee can be provided that every grammatical or spelling mistake has been or will be identified or corrected. Thank you for your understanding. HUBERT Wright 12/04/24 [id number] [facility] [place] Telephone encounter Note* Telephone Encounter - Brennen Agrawal - 12/02/2024 9:15 AM EDT Right L5-S1 PARKER RUTH SMITH [id number] BERENGER 5/5 -THINNERS +DM Patient was made aware that the ASC will call the day prior to scheduled procedure between the hours of 12 and 4 pm to advise patient of arrival time the day of procedure. Patient was advised that they will require a transport truck driver on the day of their procedure, and procedure will be cancelled if they arrive without a responsible adult to transport them home from the procedure. Patient advised that all medication management instructions prior to procedure will need addressed by clinical staff. Patient expresses understanding with no further questions or concerns at this time. [facility]04-21-2025 Miscellaneous Notes* Telephone Encounter - Brennen Agrawal - 12/02/2024 9:15 AM EDT Right L5-S1 PARKER RUTH SMITH [id number] BERENGER 5/5 -THINNERS +DM Patient was made aware that the ASC will call the day prior to scheduled procedure between the hours of 12 and 4 pm to advise patient of arrival time the day of procedure. Patient was advised that they will require a transport truck driver on the day of their procedure, and procedure will be cancelled if they arrive without a responsible adult to transport them home from the procedure. Patient advised that all medication management instructions prior to procedure will need addressed by clinical staff. Patient expresses understanding with no further questions or concerns at this time. [facility]04-17-[facility]25 Instructions* Patient Instructions* Zac Crouch MD - 11/28/2024 4:02 PM EDT Labs today Start OTC MVT supplements 1 tab daily F/u in 3 months documented in this encounterK[facility]04-17-2025 History of Present illness Narrative* Zac Crouch MD - 11/28/2024 4:00 PM EDT PATIENT NAME: Ruth Smith [facility] NO.: [id number] ATTENDING PHYSICIAN: Zac Crouch MD DATE OF SERVICE: November 28, [address] Abrahan Rinaldi [phone] [facility] [phone] thank you for referring Ruth Smith for an opinion regarding Thrombocytoopenia. CHIEF COMPLAINT: Thrombocytopenia HPI: Ruth Smith is a 54 year old year old male with PMH of liver cirrhosis from Hep C (treated), colon cancer s/p surgery in 2018, chronic back pain, HTN, IBS, DM referred to us for thrombocytopenia. Smokes half pack daily Quit alcohol many yrs ago. On disability. C/o back pain. No other complaints. Current Outpatient Medications Medication Sig hyoscyamine (LEVSIN) 0.125 mg tablet Take 0.125 mg by mouth. omeprazole (PRILOSEC) 40 mg capsule Take 40 mg by mouth. XIFAXAN 550 mg tablet Take 550 mg by mouth. gabapentin (NEURONTIN) 400 mg capsule Take 400 mg by mouth three times a day. carvedilol (COREG) 3.125 mg tablet Take 3.125 mg by mouth two times a day with meals. colestipol (COLESTID) 1 gram tablet Take 1 g by mouth two times a day. sucralfate (CARAFATE) 1 gram tablet Take 1 g by mouth three times a day. eluxadoline (VIBERZI) 100 mg tab Take 100 mg by mouth two times a day. albuterol HFA (PROVENTIL HFA, VENTOLIN HFA) 90 mcg/actuation inhaler Inhale 2 puffs as instructed. semaglutide 0.25 mg/0.5 mL (0.5 mg/mL) subcutaneous compounded injection Inject subcutaneously one time a week. atorvastatin (LIPITOR) 40 mg tablet Take 40 mg by mouth once daily. magnesium oxide 400 mg magnesium cap Take 400 mg by mouth once daily. cyclobenzaprine (FLEXERIL) 10 mg tablet Take 10 mg by mouth three times a day. losartan (COZAAR) 50 mg tablet Take 50 mg by mouth once daily. tamsulosin ER (FLOMAX) 0.4 mg cap Take 1 capsule by mouth once daily. traZODone (DESYREL) 50 mg tablet Take 50 mg by mouth daily at bedtime. linagliptin-metFORMIN (JENTADUETO) 2.5-1,000 mg tab Take by mouth. hydroCHLOROthiazide (HYDRODIURIL, ESIDRIX) 25 mg tablet Take 25 mg by mouth once daily. Fenofibrate (LOFIBRA) 160 mg tablet Take 160 mg by mouth once daily. citalopram (CELEXA) 40 mg tablet Take 40 mg by mouth once daily. insulin degludec (TRESIBA FLEXTOUCH U-100) 100 unit/mL (3 mL) injection pen Inject subcutaneously daily at bedtime. (Patient not taking: Reported on 11/28/2024) No current facility-administered medications for this visit. ALLERGIES Allergen Reactions Clindamycin Other: See Comments Insulin Glargine GI Upset basaglar PAST MEDICAL HISTORY Diagnosis Date Bipolar 1 disorder (HCC) Cirrhosis (HCC) Colon cancer (HCC) Diabetes (HCC) Hypertension Splenomegaly PAST SURGICAL HISTORY Procedure Laterality Date BACK SURGERY HX Lumbar L5 COLONOSCOPY 02/22/2018 EGD 02/22/2018 PAST SURGICAL HISTORY OF left foot surgery PAST SURGICAL HISTORY OF back injections FAMILY HISTORY Problem Relation Age of Onset Heart Attack Father at 59. Multiple CABG, defib Social History Tobacco Use Smoking status: Former Current packs/day: 0.00 Types: Cigarettes Quit date: 2010 Years since quittin.3 Smokeless tobacco: Never Substance Use Topics Alcohol use: No Drug use: No REVIEW OF SYSTEMS GENERAL: No weight loss, malaise or fevers. No night sweats. HEENT: Negative for headaches, No changes in hearing or vision, no nose bleeds or other nasal problems. RESPIRATORY: Negative for cough, wheezing and shortness of breath CARDIOVASCULAR: Negative for chest pain, leg swelling and palpitations GI: Negative for abdominal discomfort, blood in stools or black stools and change in bowel habits : Negative for dysuria, frequency and incontinence MUSCULOSKELETAL: Negative for joint pain or swelling, back pain, and muscle pain. SKIN: Negative for lesions, rash, and itching. HEMATOLOGY/LYMPHOLOGY Negative for prolonged bleeding, bruising easily, and swollen nodes. NEURO: Negative for numbness or tingling of hands/feet. No weakness. PHYSICAL EXAMINATION: BP 143/83 Pulse 91 Temp 36.6 C (97.9 F) (Temporal) Resp 18 Wt 105 kg (231 lb 7.7 oz) [id number]% BMI 30.54 kg/m There were no vitals taken for this visit. Last 3 Encounter Wt Readings: Date: Wt: 11/22/2024 102.1 kg (225 lb) 06/10/2019 114.3 kg (252 lb) 05/28/2018 120.7 kg (266 lb) General appearance:ECOG PERFORMANCE STATUS: 1- Restricted in physically strenuous activity. Carries out light duty. Patient in NAD. Skin: Skin color, texture, turgor normal. No rashes or lesions. Eyes: Anicteric sclera. Pupils are equally round and reactive to light. Extraocular movements are intact. Breast: No palpable breast masses. No nipple change or discharge. Lymph Nodes: No cervical, supraclavicular, axillary or inguinal adenopathy. Oropharynx: Lips, mucosa, and tongue normal. Back: No pain to percussion. Negative SLR test Lungs clear to auscultation, No wheezing or rhonchi Heart: RRR without murmur, gallop, or rubs. Abdomen soft, non-tender. No masses, organomegaly Extremities: No deformities. No edema Neuro: Gait and speech normal. Reflexes normal and symmetric. Muscular strength intact. Sensation grossly intact. Rectal: Deferred : Deferred LABS: Glucose (mg/dL) Date Value 08/27/2018 249 Potassium (mmol/L) Date Value 08/27/2018 3.4 Sodium (mmol/L) Date Value 08/27/2018 134 Chloride (mmol/L) Date Value 08/27/2018 95 CO2 (mmol/L) Date Value 08/27/2018 30 Creatinine (mg/dL) Date Value 08/27/2018 0.74 BUN (mg/dL) Date Value 08/27/2018 11 Anion Gap (mmol/L) Date Value 08/27/2018 9 Calcium (mg/dL) Date Value 08/27/2018 9.5 Protein, Total (g/dL) Date Value 06/05/2019 7.5 Albumin (g/dL) Date Value 06/05/2019 4.4 Bilirubin, Total (mg/dL) Date Value 06/05/2019 0.5 Alkaline Phosphatase (U/L) Date Value 06/05/2019 62 AST (U/L) Date Value 06/05/2019 17 ALT (U/L) Date Value 06/05/2019 6 WBC Date Value Ref Range Status 11/28/2024 8.69 3.70 - 11.00 k/uL Final RBC Date Value Ref Range Status 11/28/2024 5.57 4.20 - 6.00 m/uL Final Hemoglobin Date Value Ref Range Status 11/28/2024 15.3 13.0 - 17.0 g/dL Final Hematocrit Date Value Ref Range Status 11/28/2024 46.3 39.0 - 51.0 % Final MCV Date Value Ref Range Status 11/28/2024 83.1 80.0 - 100.0 fL Final MCH Date Value Ref Range Status 11/28/2024 27.5 26.0 - 34.0 pg Final MCHC Date Value Ref Range Status 11/28/2024 33.0 30.5 - 36.0 g/dL Final RDW-CV Date Value Ref Range Status 11/28/2024 15.2 (H) 11.5 - 15.0 % Final Platelet Count Date Value Ref Range Status 11/28/2024 135 (L) 150 - 400 k/uL Final MPV Date Value Ref Range Status 11/28/2024 12.9 (H) 9.0 - 12.7 fL Final Abs Neut Date Value Ref Range Status 11/28/2024 5.99 1.45 - 7.50 k/uL Final Lymphocytes % Date Value Ref Range Status 11/28/2024 23.7 % Final Abs Lymph Date Value Ref Range Status 11/28/2024 2.06 1.00 - 4.00 k/uL Final Monocytes % Date Value Ref Range Status 11/28/2024 6.0 % Final Abs [place] Date Value Ref Range Status 11/28/2024 0.52 <0.87 k/uL Final Abs Eosin Date Value Ref Range Status 11/28/2024 0.03 <0.46 k/uL Final Basophils % Date Value Ref Range Status 11/28/2024 0.6 % Final Abs Baso Date Value Ref Range Status 11/28/2024 0.05 <0.11 k/uL Final PATH: IMAGING: ASSESSMENT AND PLAN: Ruth Smith is a 54 year old year old male referred to us for thrombocytopenia. H/o liver cirrhosis from Hep C (treated), colon cancer s/p surgery in 2018, chronic back pain, HTN,IBS, DM PLAN: - Explained to him in detail the various etiologies for thrombocytopenia including vitamin deficiencies, autoimmune disorders bone marrow disorders and liver cirrhosis. - He has chronic mild thrombocytopenia since 2018. - Thrombocytopenia likely secondary to liver cirrhosis. - Monitor the thrombocytopenia for now. CBC today showed platelets of 135k. - CT abdomen pelvis on 11/12/2024 showed morphological changes of the liver compatible with liver cirrhosis and splenomegaly with underlying portal hypertension. - Check CBC CMP B12 folate copper zinc LEATHA CEA levels - Advised him to take a multivitamin supplement daily - Cleared for surgical interventions as long as platelets are above 75k. - F/u with PCP, GI and other consultants. - All his questions answered in detail - Follow-up in [address] Abrahan Rinaldi [phone] [facility] [phone] thank you for allowing me to participate in Ruth Smith care, if there are any questions or concerns please do not hesitate to contact me at the number below. I spent a total of 45 minutes on the date of the service which included preparing to see the patient, [id number] patient care, completing clinical documentation, obtaining and/or reviewing separately obtained history, performing a medically appropriate examination, counseling and educating the pat ient/family/caregiver, ordering medications, tests, or procedures, communicating with other HCPs (not separately reported), independently interpreting results (not separately reported), communicatingresults to the patient/family/caregiver, and care coordination (not separately reported). Zac Crouch MD. Hematology/Medical Oncology [facility] [phone] CC: documented in this encounterK[facility]04-17-2025 NoteHNO ID: [id number] Author: ZAC CROUCH MD Service: ? Author Type: Physician Type: Progress Notes Filed: 11/29/2024 08:20 Note Text: PATIENT NAME: Ruth Smith CLINIC NO.: [id number] ATTENDING PHYSICIAN: Zac Crouch MD DATE OF SERVICE: November 28, [address] Abrahan Rinaldi [phone] [facility] [phone] thank you for referring Ruth Smith for an opinion regarding Thrombocytoopenia. CHIEF COMPLAINT: Thrombocytopenia HPI: Ruth Smith is a 54 year old year old male with PMH of liver cirrhosis from Hep C (treated), colon cancer s/p surgery in 2018, chronic back pain, HTN, IBS, DM referred to us for thrombocytopenia. Smokes half pack daily Quit alcohol many yrs ago. On disability. C/o back pain. No other complaints. Current Outpatient Medications Medication Sig hyoscyamine (LEVSIN) 0.125 mg tablet Take 0.125 mg by mouth. omeprazole (PRILOSEC) 40 mg capsule Take 40 mg by mouth. XIFAXAN 550 mg tablet Take 550 mg by mouth. gabapentin (NEURONTIN) 400 mg capsule Take 400 mg by mouth three times a day. carvedilol (COREG) 3.125 mg tablet Take 3.125 mg by mouth two times a day with meals. colestipol (COLESTID) 1 gram tablet Take 1 g by mouth two times a day. sucralfate (CARAFATE) 1 gram tablet Take 1 g by mouth three times a day. eluxadoline (VIBERZI) 100 mg tab Take 100 mg by mouth two times a day. albuterol HFA (PROVENTIL HFA, VENTOLIN HFA) 90 mcg/actuation inhaler Inhale 2 puffs as instructed. semaglutide 0.25 mg/0.5 mL (0.5 mg/mL) subcutaneous compounded injection Inject subcutaneously one time a week. atorvastatin (LIPITOR) 40 mg tablet Take 40 mg by mouth once daily. magnesium oxide 400 mg magnesium cap Take 400 mg by mouth once daily. cyclobenzaprine (FLEXERIL) 10 mg tablet Take 10 mg by mouth three times a day. losartan (COZAAR) 50 mg tablet Take 50 mg by mouth once daily. tamsulosin ER (FLOMAX) 0.4 mg cap Take 1 capsule by mouth once daily. traZODone (DESYREL) 50 mg tablet Take 50 mg by mouth daily at bedtime. linagliptin-metFORMIN (JENTADUETO) 2.5-1,000 mg tab Take by mouth. hydroCHLOROthiazide (HYDRODIURIL, ESIDRIX) 25 mg tablet Take 25 mg by mouth once daily. Fenofibrate (LOFIBRA) 160 mg tablet Take 160 mg by mouth once daily. citalopram (CELEXA) 40 mg tablet Take 40 mg by mouth once daily. insulin degludec (TRESIBA FLEXTOUCH U-100) 100 unit/mL (3 mL) injection pen Inject subcutaneously daily at bedtime. (Patient not taking: Reported on 11/28/2024) No current facility-administered medications for this visit. ALLERGIES Allergen Reactions Clindamycin Other: See Comments Insulin Glargine GI Upset basaglar PAST MEDICAL HISTORY Diagnosis Date Bipolar 1 disorder (HCC) Cirrhosis (HCC) Colon cancer (HCC) Diabetes (HCC) Hypertension Splenomegaly PAST SURGICAL HISTORY Procedure Laterality Date BACK SURGERY HX Lumbar L5 COLONOSCOPY 02/22/2018 EGD 02/22/2018 PAST SURGICAL HISTORY OF left foot surgery PAST SURGICAL HISTORY OF back injections FAMILY HISTORY Problem Relation Age of Onset Heart Attack Father at 59. Multiple CABG, defib Social History Tobacco Use Smoking status: Former Current packs/day: 0.00 Types: Cigarettes Quit date: 2010 Years since quittin.3 Smokeless tobacco: Never Substance Use Topics Alcohol use: No Drug use: No REVIEW OF SYSTEMS GENERAL: No weight loss, malaise or fevers. No night sweats. HEENT: Negative for headaches, No changes in hearing or vision, no nose bleeds or other nasal problems. RESPIRATORY: Negative for cough, wheezing and shortness of breath CARDIOVASCULAR: Negative for chest pain, leg swelling and palpitations GI: Negative for abdominal discomfort, blood in stools or black stools and change in bowel habits : Negative for dysuria, frequency and incontinence MUSCULOSKELETAL: Negative for joint pain or swelling, back pain, and muscle pain. SKIN: Negative for lesions, rash, and itching. HEMATOLOGY/LYMPHOLOGY Negative for prolonged bleeding, bruising easily, and swollen nodes. NEURO: Negative for numbness or tingling of hands/feet. No weakness. PHYSICAL EXAMINATION: BP 143/83 Pulse 91 Temp 36.6 ?C (97.9 ?F) (Temporal) Resp 18 Wt 105 kg (231 lb 7.7 oz) SpO2 99% BMI 30.54 kg/m? There were no vitals taken for this visit. Last 3 Encounter Wt Readings: Date: Wt: 11/22/2024 102.1 kg (225 lb) 06/10/2019 114.3 kg (252 lb) 05/28/2018 120.7 kg (266 lb) General appearance:ECOG PERFORMANCE STATUS: 1- Restricted in physically strenuous activity. Carries out light duty. Patient in NAD. Skin: Skin color, texture, turgor normal. No rashes or lesions. Eyes: Anicteric sclera. Pupils are equally round and reactive to light. Extraocular movements are intact. Breast: No palpable breast masses. No nipple change or discharge. Lymph Nodes: No cervical, supraclavicular, axillary or inguinal a (more content not included)...[facility]04-14-2025 Telephone encounter Note* Telephone Encounter - Zac Crouch MD - 11/25/2024 1:30 PM EDT Thank you. [facility] Work Phone: [phone] Miscellaneous Notes* Telephone Encounter - Zac Crouch MD - 11/25/2024 1:30 PM EDT Thank you. * Telephone Encounter - Donavon De La Garza - 11/25/2024 1:04 PM EDT Spoke to patient & rescheduled him on 11/28/2024 at 1 pm. BEN Holly * Telephone Encounter - Zac Crouch MD - 11/25/2024 10:26 AM EDT Can you please reschedule him to some other time on Monday, or Monday? Thank you. documented in this encounterK[facility]04-14-2025 Telephone encounter Note * Telephone Encounter - Donavon De La Garza - 11/25/2024 1:04 PM EDT Spoke to patient & rescheduled him on 11/28/2024 at 1 pm. BEN Holly [facility]04-14-2025 Telephone encounter Note* Telephone Encounter - Zac Crouch MD - 11/25/2024 10:26 AM EDT Can you please reschedule him to some other time on Monday, or Monday? Thank you. [facility]04-11-2025 History of Present illness Narrative* Abrahan Rinaldi MD - 11/22/2024 2:00 PM EDT SUBJECTIVE: Mr. Smith a 54 year old male referred by Martha Faulkner APRN.LICENSING REPRESENTATIVE presents with the complaint of low back pain that radiates into his right buttock down the leg into his ankle Patient reports the date of onset of symptoms as several years and describes the location of the pain as lower lumbar. The pain is chronic, dull, aching, cramping, sharp, shooting, throbbing, and tender, and rated as 8on a scale of 1-10, with radiation. PAIN RATIO: (back:leg): Back > Leg Patient reports that LBP is increased by sitting and relieved by unknown . Ambulation distance (before needing to sit): not far Standing time (before needing to sit): as long as he has to OTHER BACK PAIN SYMPTOMS: NIGHT PAIN: Yes PARESTHESIA: Yes POOR SLEEP: Yes BOWEL/BLADDER INCONTINENCE OR RETENTION: Yes Urine retention ACTIVITY LIMITATIONS: ADLs PREVIOUS TREATMENTS LASTING SIX WEEKS IN THE LAST SIX MONTHS Active conservative therapy lasting 6 weeks in the last six months (see below) 1. Physical therapy: 2023 Neck 2. Home exercise program after PT: Yes 3. Occupational therapy: No 4. A physician supervised home exercise program (HEP): No 5. News Producer: No Passive conservative therapy lasting 6 weeks in the last six months (see below) 1. Medical devises: No 2. Acupuncture: No 3. Tens unit: No 4. Prescription pain medication: Yes 5. NSAIDS: Yes OCCUPATIONAL HISTORY: [employer] HISTORY OF TRAUMA/OVERUSE OF AREA: No REVIEW OF SYSTEMS: GENERAL: Negative for malaise, significant weight loss and fever HEENT: Negative for frequent or significant headaches NECK: Negative for lumps, goiter, pain and significant neck swelling RESPIRATORY: Negative for cough, hemoptysis, wheezing, COPD, dyspnea or shortness of breath CARDIOVASCULAR: Negative for chest pain, leg swelling, hypertension, CHF or palpitations GI: No nausea, vomiting, or diarrhea : No history of dysuria, frequency or incontinence MUSCULOSKELETAL: See HPI SKIN: Negative for lesions, rash, and itching PSYCH: Negative for sleep disturbance, mood disorder and recent psychosocial stressors. HEMATOLOGY/LYMPHOLOGY Negative for prolonged bleeding, bruising easily or swollen nodes ENDOCRINE: Negative for cold or heat intolerance, polyuria, polydipsia and goiter PAST MEDICAL HISTORY Diagnosis Date Bipolar 1 disorder (HCC) Cirrhosis (HCC) Colon cancer (HCC) Diabetes (HCC) Hypertension Splenomegaly PAST MEDICAL HISTORY Diagnosis Date Bipolar 1 disorder (HCC) Cirrhosis (HCC) Colon cancer (HCC) Diabetes (HCC) Hypertension Splenomegaly PAST SURGICAL HISTORY Procedure Laterality Date BACK SURGERY HX Lumbar L5 COLONOSCOPY 02/22/2018 EGD 02/22/2018 PAST SURGICAL HISTORY OF left foot surgery PAST SURGICAL HISTORY OF back injections EXAMINATION: [id number]: Scoliosis: No Pelvic Tilt: No Leg Length discrepancy: NA LATERAL: Cervical Lordosis: No Thoracic Kyphosis: No Lumbar Lordosis: No RANGE OF MOTION CERVICAL: Flexion: Not Limited Extension: Not Limited Rotation L: Not Limited Rotation R: Not Limited LUMBAR: Flexion: Not Limited Extension: Not Limited Rotation L: Not Limited Rotation R: Not Limited FINGER TO FLOOR DISTANCE: Knee Gait: Normal REFLEXES R L Biceps (C6): 1-2+ 1-2+ Triceps (C7): 1-2+ 1-2+ Brachioradiolis (C6): 1-2+ 1-2+ Ankle (S1): 2+ 2+ Knee (L4): 2+ 2+ STRENGTH (0-5): R L Deltoid (AB:C5,6): 5 5 Biceps (Flex:C5,6): 5 5 Wrist Ext.(C6,7): 5 5 Interrosei (C8,T1): 5 5 PSOAS (L2,3): 5 5 Gluteus (L5,S1,2): 5 5 Quadriceps (L3,4): 5 5 EHL (L5): 5 5 Soleus (S1): 5 5 SLR: Seated - Right Negative, Left Negative Piriformis Stretch: Negative Babinski Negative Negative Vibration sensation: WNL Proprioception: WNL PRONE Fem Stretch: Negative HIP: ROM is WNL without pain in flexion, extension and internal rotation. FABERES: Negative ROSCOE TEST 1) Tenderness: Appropriate 2) Simulation/Axial Loading/ROT: Appropriate 3) Distraction: Seated SLR: Appropriate 4) Reqional Disturbances: Appropriate 5) Overreaction: Appropriate PHYSICAL EXAMINATION: GENERAL APPEARANCE: Well appearing, in no acute distress SKIN: Skin color, texture, turgor normal. No rashes or lesions. HEAD: Normocephalic. No masses, lesions, tenderness or abnormalities EYES: Conjunctivae/corneas clear. Pupils are equally round and reactive to light. Extraocular movements are intact. NECK: Neck supple, no adenopathy; thyroid symmetric, normal size, no bruits. LUNGS: Lungs clear to auscultation, No wheezing or rhonchi HEART: negative. RRR without murmur, gallop, or rubs. No ectopy. ABDOMEN: Abdomen soft, non-tender. Bowel sounds normal. No masses, organomegaly EXTREMITIES: Extremities normal. No deformities, edema, or skin discoloration. Good capillary refill. PULSES: Normal lower extremity pulses. NEURO: Gait normal. Reflexes normal and symmetric. Sensation grossly intact. XRAY LUMBAR on XR SPINE LUMBAR 2 OR 3 VWS 2 views of the lumbar spine were obtained. There is no lumbar malalignment. Mild superior endplate L3 compression is most likely nonacute. Mild to moderate degenerative changes. There is 4 millimeters retrolisthesis L3 on L4, likely degenerative. Sacral alar appear intact. Colonic stool burden is moderate. IMPRESSION: [id number]-[id number] degenerative changes and slight retrolisthesis L3 on L4. EMG of UE 08/05/24: was reported as WNL 11/12/24: CT LUMBAR (ER visit) Comparison is made to MR lumbar spine dated 08/27/2024. Chronic wedging/superior left L3, unchanged.Schmorl's node at the endplates. Multilevel degenerative changes with intervertebral disc space narrowing most significant at L4-L5 and L5-S1. Moderate bony neural foraminal narrowing at L3-L4, and to a lesser extent L4-L5 and L5-S1 demonstrate bony spinal canal stenosis. Cirrhotic liver morphology. Intra-abdominal, pelvic findings are dictated separately. IMPRESSION: * No evidence of acute fracture or traumatic malalignment. * Degenerative changes with prominent height loss at L3 and degenerative endplate changes most significant at L2-L3, L4-L5 and L5-S1. * Moderate bony neuroforaminal stenosis at L3-L4 and to a lesser extent L4-L5, L5-S1, better assessed on the prior MR dated 08/26/2024. 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 Has liver cirrhosis (hep C). Had L 5-S1 discectomy for RIGHT sciatica (1999). Moderate NFS at L 5-S1 (08/27/24 MRI) He feels LBP is worse than LE sx's Hx of LE PN - related to DM. - sx's from knees down. LE PN started 8 years ago - sx's are numbness tingling , pains. Has been IDDM x 12 years. What is new x 4 months is pain radiating to ankle. He had RIGHT hip / femoral fracture 1 year ago (01/2024) - fell from his height = had ORIF . He then fell at the snf and fracture below his arthroplasty ([facility]). Current Right buttock to knee to ankle pain started in 05/2024. Pain is worse if he sits. Pain can wake him up at night. Waking does not aggravate. He had facet joint blocks - no effect more leg pain . LESI in past - not effective Note that he has more recent complaints of neck pain. + SMOKER - 1/2 ppd Hx of colon Ca - 2017 (resection only) no known CAD Plts - 101.000 Hgba1c = 6.5 (10/28/24) Creat = 0.86 He is on gabapentin 400 mg po tid , celexa , was on oxycdone x 1 week. He was on lyrica after back surgery 1999. He has never been on cymbalta, PLAN: Discussed the above findings and potential options with the patient. Chief complaint is axial LBP and Rt LE pain - worse with sitting. Has had facet injections - no benefit. Suggest: - hematology eval regarding thrombocytopenia - option for Right L 5-S1 TFESI - after verifying - other options include Neuro CPRP / Neuromodulation. - potential trial of duloxetine after hematology evaluation - trial of increase of gabapentin to 400/400/800 hs The above exam has been completed by me and the pertinent and negative systems have been updated. I spent a total of 45 minutes on the date of the service which included preparing to see the patient, [id number] patient care, completing clinical documentation, obtaining and/or reviewing separately obtained history, performing a medically appropriate examination, counseling and educating the pat ient/family/caregiver, ordering medications, tests, or procedures, communicating with other HCPs (not separately reported), independently interpreting results (not separately reported), and communicating results to the patient/family/caregiver. Abrahan Rinaldi MD documented in [facility] NoteHNO ID: [id number] Author: ABRAHAN RINALDI MD Service: ? Author Type: Physician Type: Progress Notes Filed: 11/25/2024 08:23 Note Text: SUBJECTIVE: Mr. Smith a 54 year old male referred by Martha Faulkner APRN.LICENSING REPRESENTATIVE presents with the complaint of low back pain that radiates into his right buttock down the leg into his ankle Patient reports the date of onset of symptoms as several years and describes the location of the pain as lower lumbar. The pain is chronic, dull, aching, cramping, sharp, shooting, throbbing, and tender, and rated as 8 on a scale of 1-10, with radiation. PAIN RATIO: (back:leg): Back > Leg Patient reports that LBP is increased by sitting and relieved by unknown . Ambulation distance (before needing to sit): not far Standing time (before needing to sit): as long as he has to OTHER BACK PAIN SYMPTOMS: NIGHT PAIN: Yes PARESTHESIA: Yes POOR SLEEP: Yes BOWEL/BLADDER INCONTINENCE OR RETENTION: Yes Urine retention ACTIVITY LIMITATIONS: ADLs PREVIOUS TREATMENTS LASTING SIX WEEKS IN THE LAST SIX MONTHS Active conservative therapy lasting 6 weeks in the last six months (see below) 1. Physical therapy: 2023 Neck 2. Home exercise program after PT: Yes 3. Occupational therapy: No 4. A physician supervised home exercise program (HEP): No 5. News Producer: No Passive conservative therapy lasting 6 weeks in the last six months (see below) 1. Medical devises: No 2. Acupuncture: No 3. Tens unit: No 4. Prescription pain medication: Yes 5. NSAIDS: Yes OCCUPATIONAL HISTORY: [employer] HISTORY OF TRAUMA/OVERUSE OF AREA: No REVIEW OF SYSTEMS: GENERAL: Negative for malaise, significant weight loss and fever HEENT: Negative for frequent or significant headaches NECK: Negative for lumps, goiter, pain and significant neck swelling RESPIRATORY: Negative for cough, hemoptysis, wheezing, COPD, dyspnea or shortness of breath CARDIOVASCULAR: Negative for chest pain, leg swelling, hypertension, CHF or palpitations GI: No nausea, vomiting, or diarrhea : No history of dysuria, frequency or incontinence MUSCULOSKELETAL: See HPI SKIN: Negative for lesions, rash, and itching PSYCH: Negative for sleep disturbance, mood disorder and recent psychosocial stressors. HEMATOLOGY/LYMPHOLOGY Negative for prolonged bleeding, bruising easily or swollen nodes ENDOCRINE: Negative for cold or heat intolerance, polyuria, polydipsia and goiter PAST MEDICAL HISTORY Diagnosis Date Bipolar 1 disorder (HCC) Cirrhosis (HCC) Colon cancer (HCC) Diabetes (HCC) Hypertension Splenomegaly PAST MEDICAL HISTORY Diagnosis Date Bipolar 1 disorder (HCC) Cirrhosis (HCC) Colon cancer (HCC) Diabetes (HCC) Hypertension Splenomegaly PAST SURGICAL HISTORY Procedure Laterality Date BACK SURGERY HX Lumbar L5 COLONOSCOPY 02/22/2018 EGD 02/22/2018 PAST SURGICAL HISTORY OF left foot surgery PAST SURGICAL HISTORY OF back injections EXAMINATION: [id number]: Scoliosis: No Pelvic Tilt: No Leg Length discrepancy: NA LATERAL: Cervical Lordosis: No Thoracic Kyphosis: No Lumbar Lordosis: No RANGE OF MOTION CERVICAL: Flexion: Not Limited Extension: Not Limited Rotation L: Not Limited Rotation R: Not Limited LUMBAR: Flexion: Not Limited Extension: Not Limited Rotation L: Not Limited Rotation R: Not Limited FINGER TO FLOOR DISTANCE: Knee Gait: Normal REFLEXES R L Biceps (C6): 1-2+ 1-2+ Triceps (C7): 1-2+ 1-2+ Brachioradiolis (C6): 1-2+ 1-2+ Ankle (S1): 2+ 2+ Knee (L4): 2+ 2+ STRENGTH (0-5): R L Deltoid (AB:C5,6): 5 5 Biceps (Flex:C5,6): 5 5 Wrist Ext.(C6,7): 5 5 Interrosei (C8,T1): 5 5 PSOAS (L2,3): 5 5 Gluteus (L5,S1,2): 5 5 Quadriceps (L3,4): 5 5 EHL (L5): 5 5 Soleus (S1): 5 5 SLR: Seated - Right Negative, Left Negative Piriformis Stretch: Negative Babinski Negative Negative Vibration sensation: WNL Proprioception: WNL PRONE Fem Stretch: Negative HIP: ROM is WNL without pain in flexion, extension and internal rotation. FABERES: Negative ROSCOE TEST 1) Tenderness: Appropriate 2) Simulation/Axial Loading/ROT: Appropriate 3) Distraction: Seated SLR: Appropriate 4) Reqional Disturbances: Appropriate 5) Overreaction: Appropriate PHYSICAL EXAMINATION: GENERAL APPEARANCE: Well appearing, in no acute distress SKIN: Skin color, texture, turgor normal. No rashes or lesions. HEAD: Normocephalic. No masses, lesions, tenderness or abnormalities EYES: Conjunctivae/corneas clear. Pupils are equally round and reactive to light. Extraocular movements are intact. NECK: Neck supple, no adenopathy; thyroid symmetric, normal size, no bruits. LUNGS: Lungs clear to auscultation, No wheezing or rhonchi HEART: negative. RRR without murmur, gallop, or rubs. No ectopy. ABDOMEN: Abdomen soft, non-tender. Bowel sounds normal. No masses, organomegaly EXTREMITIES: Extremitie (more content not included)...[facility] 11-08-2024 Instructions* Patient Instructions* Martha Faulknre APRN.ELIANE - 11/08/2024 4:32 PM EDT Images from the original note were not included. - Contact the [facility] at [phone] to schedule an appointment. [place] for the location [place]to [place]. - Obtain copies of your recent ER x-ray images and the MRI from August on a disc to bring to your Spine Center appointment. - [facility] to get a copy of your MRI images on a disc. - Follow up with your urology appointment on the for urinary issues. - A referral to pain management has been placed; consider scheduling an appointment with them as well. Acute Low Back Pain Patient Education Description Acute low back pain is when symptoms have been present for less than 4 weeks, typically 2 to 4 weeks. Eighty percent of adults will have low back pain at some point in their lives. Usually associated with muscle spasms of the support muscles along the spine. There are multiple causes for acute low back pain. Serious causes are uncommon and a medical provider can help rule these out. Prevention is sharma in limiting repeat episodes, including early activity as tolerated. Most times x-rays or other images are not needed Common Causes Muscle strain-may occur if the muscles have been over worked or are weak. Ligament sprain- provide support and may have problems with prolonged, forceful or sudden movement Age- Normal aging and wear and tear can create problems. It is best to prevent problems as best youcan with regular exercise, proper posture, proper lifting, normal weight and healthy nutrition. Disc problems-Range in severity. Your provider can assist you with these problems. Often strengthening exercises can help. Other- low back pain may result from other conditions Treatment Rest from any activity that makes pain worse. Avoid, heavy lifting, sitting/standing/ driving too long or twisting Ice to low back for 15-20 minutes every few hours. Avoid heat for the first 24 hours Ibuprofen, naproxen or acetaminophen for relief unless discussed that they should be avoided acetaminophen per medical provider Ibuprofen or naproxen per medical provider; avoid unless directed if over 65 years of age, congestive heart failure, gastric ulcers, kidney disease, anticoagulation medications, 3rd trimester , kidney disease Early exercise- Remain active as tolerated. Suggested exercises below Physical Therapy if unable to perform suggested exercises Positioning- Proper posture during the day and when sleeping are important. Try to sleep on a mattress that is supportive on your back with a small or medium sized pillow and a pillow under your knees. If you are a side sleeper, sleep with pillow between your thighs and hug a pillow in the front Follow-up in 4 weeks if symptoms continue or before if symptoms worsen Return to Work as discussed with your medical provider Prevention General health measures- Proper POSTURE! Do not slump over. Keep a neutral back Aerobic exercise daily No smoking or begin smoking cessation Weight management, including healthy diet and work toward to maintain normal weight. Back Exercises Pelvic Tilt Lie on your back with knees bent. In this relaxed position, the small of your back will not be touching the floor. Tighten your abdominal muscles so your back touches the floor. Hold for 5 seconds and then repeat 3 times. Gradually build up to 10 repetitions. Knee to Chest Lie on your back with both legs straight. Bring one knee up to your chest, pressing the small of your back into the floor (pelvic tilt).Hold for 5 seconds and repeat 5 times. Repeat exercise with other leg. Back Stretch Lie on your stomach. Use your upper arms to push your upper body off the floor. Hold for 5 seconds.Let you back relax and sag. Repeat 10 times. Discontinue any exercise that produces or increases pain in the leg. References [employer]. NHS Choices: Lower back pain exercises. Accessed 12/26/2012. Rasheed N, Tanvi A, Joe S, Marvin P, Lidia P. Effect of flexibility exercise on lumbar angle: a study among non-specific low back pain patients. J Bodyw Mov Ther. 2012;16(2):236-43. Accessed 12/26/2012 . [employer]. Low Back Pain Exercise Guide. Accessed 12/26/2012. ?Copyright 9971-1827 [facility]. All rights reserved documented in this encounter[facility]03-28-2025 NoteHNO ID: [id number] Author: MARTHA FAULKNER APRN.ELIANE Service: ? Author Type: Nurse Practitioner Type: Progress Notes Filed: 11/08/2024 16:33 Note Text: Telemedicine Visit - Distance Health Virtual Visit Note Patient seen on dax [employer] Video Visit platform. Location of patient: [place] I have communicated my name and active licensure. The patient's identity and physical location were verified at the time of this visit. Either the patient or their legal charter representative has been informed of the risks and benefits of -- and alternatives to -- treatment through a remote evaluation and consents to proceed with the evaluation remotely. Subjective The patient is a 54-year-old male presenting for evaluation of chronic low back pain with radiculopathy. Chronic Low Back Pain with Radiculopathy: - Chronic low back pain with radiation into the right leg. - Recent exacerbation of pain; no prior issues until recently. - Recent fall on Monday, resulting in a visit to the ER on the ; leg gave out, causing a fall and minor head injury. - ER visit included an X-ray and a 4-day course of Prednisone and 2 days of pain medication. - Pain radiates down the right leg; left leg previously treated with ablation, resulting in minimal issues. - Recent MRI in August showed bulging discs at L4-L5 and L5-S1, with moderate to major bulging at L5-S1. - History of compression fracture at L2-L3 a few years ago, which healed on its own. - Recent X-ray showed no lumbar malalignments, mild to moderate degenerative changes, and no dislocations, herniations, or bulging discs. - Reports numbness and tingling in both feet, attributed to neuropathy. - No loss of bowel or bladder control, but experiencing difficulty urinating; scheduled to see a urologist on the . - Fractured pelvis and femur in three places last January; no recent issues until now. Musculoskeletal: (+) low back pain radiating to right leg, (+) buttock pain (right side) Genitourinary: (+) difficulty urinating, (-) incontinence Neurological: (+) bilateral foot numbness/tingling, (-) loss of bowel/bladder control Objective There were no vitals taken for this visit. General: No acute distress. Back: Tenderness over L4-L5 and L5-S1 regions. 1. Acute right-sided low back pain with right-sided sciatica (M54.41) - Recent fall on Monday resulted in acute exacerbation of chronic low back pain with radiation to the right leg; no precipitating trauma or injury reported. - Recent ER visit included lumbar X-ray showing no malalignments, mild to moderate degenerative changes, and non-acute compression; no dislocations, herniations, or bulging discs noted. - MRI from August revealed bulging discs at L4-L5 and L5-S1, with moderate to severe changes; previous compression fracture at L2-L3 noted to have healed. - Completed a short course of prednisone and pain medication post-ER visit. - Referred to [facility] Center for further evaluation and management; provided contact number [phone] for scheduling. - Advised patient to obtain copies of recent MRI and X-ray images to bring to the [facility]ine [facility] appointment. - Also referred to Pain Management for comprehensive pain control. - Discussed potential treatment options including surgical and non-surgical interventions. Orders Placed This Encounter CONSULT TO [facility] Standing Status: Future Expiration Date: 11/08/2025 Scheduling Instructions: please call [phone] for scheduling Does consulting provider have [facility] access?: Yes CONSULT PAIN MGMT Order Comments: PLEASE CALL:[phone] FOR AN APPOINTMENT Standing Status: Future Scheduling Instructions: Please select the clinical reason(s) for this consult to Pain Management: Evaluate and treat. Transfer pain medication prescribing to referring provider when patient on stable medication plan. Location: [facility]: [address] [place] [address] Rd., [place], Does consulting provider have [facility] access?: Yes Attestation The patient consented to the use of ambient true[x] Media software for draft documentation of the visit consistent with [facility]?s Notice of Privacy Practices. - Red flags discussed for need for in person care - All questions answered Martha Faulkner, MSN, HOSPITAL CHIEF FINANCIAL OFFICER-LICENSING REPRESENTATIVE, [facility] [facility] Online [facility] [place] [facility] [place] MDM CODING:[facility]03-28-2025 History of Present illness Narrative * Martha Faulkner APRN.LICENSING REPRESENTATIVE - 11/08/2024 4:21 PM EDT Telemedicine Visit - Distance Health Virtual Visit Note Patient seen on dax [employer] Video Visit platform. Location of patient: [place]-C I have communicated my name and active licensure. The patient's identity and physical location wereverified at the time of this visit. Either the patient or their legal charter representative has been informed of the risks and benefits of -- and alternatives to -- treatment through a remote evaluation andconsents to proceed with the evaluation remotely. Subjective The patient is a 54-year-old male presenting for evaluation of chronic low back pain with radiculopathy. Chronic Low Back Pain with Radiculopathy: - Chronic low back pain with radiation into the right leg. - Recent exacerbation of pain; no prior issues until recently. - Recent fall on Monday, resulting in a visit to the ER on the ; leg gave out, causing a falland minor head injury. - ER visit included an X-ray and a 4-day course of Prednisone and 2 days of pain medication. - Pain radiates down the right leg; left leg previously treated with ablation, resulting in minimalissues. - Recent MRI in August showed bulging discs at L4-L5 and L5-S1, with moderate to major bulging at L5-S1. - History of compression fracture at L2-L3 a few years ago, which healed on its own. - Recent X-ray showed no lumbar malalignments, mild to moderate degenerative changes, and no dislocations, herniations, or bulging discs. - Reports numbness and tingling in both feet, attributed to neuropathy. - No loss of bowel or bladder control, but experiencing difficulty urinating; scheduled to see a urologist on the . - Fractured pelvis and femur in three places last January; no recent issues until now. Musculoskeletal: (+) low back pain radiating to right leg, (+) buttock pain (right side) Genitourinary: (+) difficulty urinating, (-) incontinence Neurological: (+) bilateral foot numbness/tingling, (-) loss of bowel/bladder control Objective There were no vitals taken for this visit. General: No acute distress. Back: Tenderness over L4-L5 and L5-S1 regions. 1. Acute right-sided low back pain with right-sided sciatica (M54.41) - Recent fall on Monday resulted in acute exacerbation of chronic low back pain with radiation to the right leg; no precipitating trauma or injury reported. - Recent ER visit included lumbar X-ray showing no malalignments, mild to moderate degenerative changes, and non-acute compression; no dislocations, herniations, or bulging discs noted. - MRI from August revealed bulging discs at L4-L5 and L5-S1, with moderate to severe changes; previous compression fracture at L2-L3 noted to have healed. - Completed a short course of prednisone and pain medication post-ER visit. - Referred to Spine Center for further evaluation and management; provided contact number [phone] for scheduling. - Advised patient to obtain copies of recent MRI and X-ray images to bring to the [facility] appointment. - Also referred to Pain Management for comprehensive pain control. - Discussed potential treatment options including surgical and non-surgical interventions. Orders Placed This Encounter CONSULT TO [facility] Standing Status: Future Expiration Date: 11/08/2025 Scheduling Instructions: please call [phone] for scheduling Does consulting provider have [facility] access?: Yes CONSULT PAIN MGMT Order Comments: PLEASE CALL:[phone] FOR AN APPOINTMENT Standing Status: Future Scheduling Instructions: Please select the clinical reason(s) for this consult to Pain Management: Evaluate and treat. Transfer pain medication prescribing to referring provider when patient on stable medication plan. Location: [facility]: [address] [place] [address]., [place], Does consulting provider have [facility] access?: Yes Attestation The patient consented to the use of [employer] software for draft documentation of the visit consistent with [facility] s Notice of Privacy Practices. - Red flags discussed for need for in person care - All questions answered Martha Faulkner, MSN, HOSPITAL CHIEF FINANCIAL OFFICER-LICENSING REPRESENTATIVE, [facility] [place] MDM CODING: documented in this [facility] Miscellaneous Notes* Telephone Encounter - Hannah Moreno - 09/17/2024 3:58 PM EST Patient called asking if he could have the Pain management referral placed to [facility] instead of [facility]. Advised patient that I would message Marcell to let her know and once the referral is placed we will send the information over to them. Patient verbalized understanding. [facility] in [facility] [place] Telephone encounter Note* Telephone Encounter - Hannah Moreno - 09/17/2024 3:58 PM EST Patient called asking if he could have the Pain management referral placed to [facility] instead of [facility]. Advised patient that I would message Marcell to let her know and once the referral is placed we will send the information over to them. Patient verbalized understanding. [facility] [place]01-15-2025 Miscellaneous Notes* Telephone Encounter - DAGO High - 08/28/2024 7:36 AM EST Refill sent. Patient's MRI was scheduled 08/27/2024 through [facility], awaiting result. documented in this encounterKing[facility] [place]-15-2025 Telephone encounter Note* Telephone Encounter - DAGO High - 08/28/2024 7:36 AM EST Refill sent. Patient's MRI was scheduled 08/27/2024 through [facility], awaiting result. [facility] [place]12-23-2024 History of Present illness Narrative* Komal Slade MA - 08/05/2024 2:00 PM EST Images from the original note were not included. Reason for Appointment: EMG Patient: Ruth Smith : 1970 EMG Computer: [employer] Referring Physician: Marcell Badillo CNP EMG: PRETTY button grader: Komal Slade CMA Office Location: [place] Reason for EMG: c/o neck pain that radiates down the left arm. Weakness in the hands L>R. Paresthesia. Hx of DM, not taking blood thinners. Comments: Procedure explained to the patient who expressed understanding. documented in this encounterLake Regional Health [id number] Miscellaneous Notes* Telephone Encounter - DAGO Clay - 08/05/2024 10:34 AM EST For you * Telephone Encounter - DAGO High - 08/05/2024 10:34 AM EST See telephone note. documented in this encounterKing[facility] [place]12-[facility]-2024 Telephone encounter Note* Telephone Encounter - DAGO Clay - 08/05/2024 10:34 AM EST For you [employer] Work Phone: [phone] 132-823712-23-2024 Telephone encounter Note* Telephone Encounter - DAGO High - 08/05/2024 10:34 AM EST See telephone note. [employer]12-12-2024 History of Present illness Narrative* Marcell Kraft MD - 07/25/2024 1:30 PM EST Chief complaint: right knee pain History of IMN right periprosthetic hip fracture 01/2024 ([place]) HPI: Ruth Smith is a 54 y.o. male with the aforementioned history of hip fracture and surgical intervention. The patient was last seen in clinic 06/20/2024 where he was having right knee pain. He was given a corticosteroid injection in clinic with improvement in resolution in his pain since then. The patient reports he has been having pain about his posterior lateral hip and thigh which has made it uncomfortable to lie onto his right side. He reports he has a history of ruptured lumbar disc as well as right-sided sciatica which extends to his anterior thigh for which he is seeing the spine clinic. He reports he has been taking Percocet as needed for his pain. He denies any issues with ambulating. Past Medical History: Diagnosis Date Asthma Back pain Chronic cough from lisinopril Chronic pain disorder Colon cancer ([facility]) 2018 COPD (chronic obstructive pulmonary disease) ([facility]) Depression Diabetes mellitus type 2, controlled ([facility]) Fibromyalgia, primary Fracture of right hip, closed, initial encounter ([facility]) 01/17/2024 GERD (gastroesophageal reflux disease) Hyperlipidemia Hypertension Insulin-treated type 2 diabetes mellitus ([facility]) Joint pain Kidney stones Liver disease Low back pain Neck pain Obesity Osteoarthritis Visual impairment Past Surgical History: Procedure Laterality Date BACK SURGERY 1999 Dr. Veto Priest-[facility] L5 ruptured disc per patient COLON SURGERY resection, 2018, [facility] DAVINCI REPAIR HERNIA VENTRAL N/A 10/27/2021 Performed by Ridge Cedillo MD at [facility] pt had all teeth removed HERNIA REPAIR x's 2 INSERTION INTRAMEDULLARY NAIL FEMUR Right 01/30/2024 Performed by Ang Figueroa MD at [facility] INSERTION INTRAMEDULLARY NAIL FEMUR-TFNA HIP FX Right 01/18/2024 Performed by Ang Figueroa MD at [facility] ORTHOPEDIC SURGERY 2008 foot, infected foot REMOVAL HARDWARE INTRAMEDULLARY NAIL/KATERYNA FEMUR Right 01/30/2024 Performed by Ang Figueroa MD at [facility] Social History Tobacco Use Smoking status: Every Day Current packs/day: 0.50 Average packs/day: 0.5 packs/day for 20.0 years (10.0 ttl pk-yrs) Types: Cigarettes Smokeless tobacco: Never Substance Use Topics Alcohol use: Not Currently Physical exam General: Well-developed well-nourished right hip: Inspection: Well-healed scar over the posterior hip Palpation: Tender to palpation about the inferior aspect of the incision about the greater trochanter. SILT s/s/sp/dp/pt, + motor fxn EHL, FHL, DF, PF. Comparments & calves soft and compressible Palpable pulses with BCR x 5 Radiographic imaging personally viewed and identify:: x-rays of the patient's right hip notable forhealed fracture with hardware in unchanged alignment. ASSESSMENT: Ruth Smith is a 54 y.o. male with right hip greater trochanteric bursitis/incisionalpain. PLAN: Discussed with the patient pain about his incision could be treated with observation or we can try a corticosteroid injection about his greater trochanter. Injection performed in clinic today with the patient consent tolerated without complication. We discussed with the patient it takes some time for steroid to take effect and he is to watch for fever, chills, or erythema. Return to clinic on an as-needed basis All questions were encouraged and addressed at today's visit. Marcell Kraft MD Orthopaedic Surgery, PGY-3 07/25/24 1:46 PM * Ang Figueroa MD - 07/25/2024 1:30 PM ESTAssociated Order(s): $ Large Joint Injection: R greater trochanteric bursa Post-Procedure Diagnose(s): Trochanteric bursitis of right hip Attending Attestation: I saw the patient. I performed the critical/sharma portions of the service. I was directly involved inthe management and treatment plan of the patient. I reviewed the resident's note. Additional Notes/Findings: Presents back after open reduction IM nail was femur fracture. His knee is feeling great. He has trochanteric/buttock type pain which is consistent with trochanteric bursitis. We did go through with the jig injection on that today. Please see procedure note for that. Otherwise plan as above. LEVEL OF SERVICE: Ortho MDM Diagnosis Complexity -: [4] MODERATE: 1 acute, complicated injury Ortho Data Level: [3] Ortho Data Limited Category 1 (need 2): Review of results and Order unique tests Ortho Tx/Test Risk Level (highest): [4] Ortho Moderate Risk Options: Prescription Drugs LEVEL OF MDM -: [4] MODERATE level based on above criteria. $ Large Joint Injection: R greater trochanteric bursa on 07/25/2024 2:12 PM Indications: pain Details: 21 G needle, lateral approach Medications: 40 mg triamcinolone acetonide 40 mg/mL; 5 mL BUPivacaine HCl 0.25 % (2.5 mg/mL) ANG FIGUEROA MD documented in this encounterCommunity Memorial HospitalComplix Up Health [id number] Miscellaneous Notes* Telephone Encounter - CARINE Apodaca - 07/24/2024 11:47 AM EST [facility] Patient called today stating that his EMG is scheduled on 08/05/24 and he hasn't heard from anyone about scheduling the MRI. I advised patient he should call central scheduling to schedule the MRI. Patient stated he will do that when we hang up. Patient also stated that his steroid and pain medicine will run out tomorrow and has to come to [place] tomorrow to see ortho. Patient stated his doctor is worried about him traveling all the way up here and recommended that he call for a refill of the percocet and prednisone. Patient stated that his PCP will not refill these medications since he was referred to our office. * Telephone Encounter - DAGO High - 07/24/2024 11:47 AM EST Refills sent. He denies constipation. The highest his glucose has been is 220. Will decrease prednisone to once daily. He reports he has some swelling at his hip surgical site that he is seeing orthofor tomorrow. [facility] documented in this encounterCommunity Memorial HospitalComplix Up Health [id number] Telephone encounter Note* Telephone Encounter - CARINE Apodaca - 07/24/2024 11:47 AM EST [facility] Patient called today stating that his EMG is scheduled on 08/05/24 and he hasn't heard from anyone about scheduling the MRI. I advised patient he should call central scheduling to schedule the MRI. Patient stated he will do that when we hang up. Patient also stated that his steroid and pain medicine will run out tomorrow and has to come to [place] tomorrow to see ortho. Patient stated his doctor is worried about him traveling all the way up here and recommended that he call for a refill of the percocet and prednisone. Patient stated that his PCP will not refill these medications since he was referred to our office. [facility] Onyu [id number] Telephone encounter Note* Telephone Encounter - DAGO High - 07/24/2024 11:47 AM EST Refills sent. He denies constipation. The highest his glucose has been is 220. Will decrease prednisone to once daily. He reports he has some swelling at his hip surgical site that he is seeing orthofor tomorrow. [facility]12-05-[facility]24 History of Present illness Narrative* DAGO High - 07/18/2024 11:00 AM EST Images from the original note were not included. [facility] Spine [facility] [address] [facility] [id number] Subjective Patient ID: Ruth Smith is a 54 y.o. male. Encounter Date: 07/18/2024 CHIEF COMPLAINT Chief Complaint Patient presents with Consult New patient, lumbar/cervical, xrays in chart HISTORY OF PRESENT ILLNESS HPI Ruth Smith is a new patient [facility]. He reports prior surgery in 1999 for an L5 disc herniation. He fractured his right hip in January which required surgery. He then fell and fractured his right hip again which required another surgery a couple weeks later. He also reports he fell onto his left side last week. He reports chronic low back pain for several years that was more manageable but became more severe in the last 2-3 months. He also has pain to his right buttock, posterior proximal thigh and around to his groin and down his medial thigh. He has occasional left buttock and posterior thigh pain. His legs go numb if he is sitting for 10 minutes. 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 He feels weak in his right more than left leg. He feels better standing or laying down. He was previously given Prednisone and Percocet which is the only thing that has seemed to help. He reports his neck pain that comes and goes for a few days at a time every couple weeks since July,. He was having pain down his left arm that resolved with a shoulder injection in November. He does continue to have chronic mostly constant left and newer right medial hand and 1-2nd finger pain and left finger numbness. He was supposed to have an EMG on his arms but then fractured his hip and did not get it re-scheduled. Location: -Cervical: C4-6 -Lumbar: midline, greatest lumbosacral Radiation: -Cervical: left upper trapezius, left>right radial hand into 1-2nd fingers, left fingers with numbness, (left arm pain resolved after shoulder injection 12/12/2023 [facility]) -Lumbar: constant right buttock and proximal posterior thigh around to groin and medial thigh to knee, occasional left buttock/posterior thigh. Diffuse numbness bilaterally through legs if sitting ontoilet more than chairs for 10 min. Chronic neuropathy below knee's bilaterally and cannot really feel anything Description: -Cervical: sharp, comes and goes every couple weeks -hand pain-grasping/un screwing things -Lumbar: sharp, shooting, stabbing, burning, dull Exacerbating factors: -Cervical: unsure -Lumbar: bending, sitting, waking him at night, walking short distance, lifting Alleviating Factors: -Cervical: laying flat without pillows, left shoulder injection helped arm but not hand pain -Lumbar: standing hurts but not as bad as sitting, laying down, prednisone/percocet Functional impairment: severe Severity: -Cervical: rates the pain 0/10 at its best and 7-8/10 at its worst. -Lumbar: rates the pain 4-5/10 at its best and 9/10 at its worst. Duration/Initial inciting event: -Cervical: neck fall, 2022, left arm July,-no known injury at onset -Lumbar: recurrent manageable low back pain for a couple years, more severe x 2- 3 months -he did fall on his left side last week and fell in January, and refractured his right hip Weakness: bilateral hand grasp/dropping and R>LLE, denies upper arms Patient is right hand dominant. Cauda equina/Myelopathy symptoms: patient denies new bowel/bladder dysfunction, saddle anesthesia or loss of coordination. He does have some fine motor difficulty. He does have balance impairment. The patient symptoms are not associated with a new illness or viral syndrome. The symptoms are not associated with any concerning constitutional symptoms such as fever, rash, unexplained change in weight or appetite. There are no new night sweats. Patient denies history of illicit drug abuse/IV drug use. Current and prior evaluation and treatments: -Medication trials for this problem: flexeril, gabapentin 300 mg BID was on 800 mg 4 x day prior (prior ibuprofen, lidoderm, roxicodone, prednisone 06/03/24, robaxin) Supposed to limit NSAIDs due to GI issues) - Alternative methods to treatment: heat -Physical therapy/Home exercise program: PT right hip inpatient rehab x 1 week 01/2024 then home PT cadence Mar -tree care foreman: none -Pain management: [facility] 04/02/2024 consult-SIJ injection discussed but patient did not return due to being there for 3.5 hours Prior lumbar injections at [facility] a couple years ago-remembers one helping his left side Had injections after surgery in 1999 -Pertinent spine surgeries/previous consults: 1999 L5 rupt[address] surgery Dr. Veto Priest-Psychiatric 01/18/2024 right intramedullary nail femur placed by Dr Figueroa 01/30/2024 right hip hardware removal and ORIF by Dr Figueroa -Pertinent comorbid conditions: fibromyalgia, T2DM, obesity, iron deficiency anemia, tobacco use, history of colon CA 2017, moderate to severe BLE neuropathy emg 2021-radiculopathy cannot be excluded -Summary of spine imaging findings: -Cervical: C5-6 moderate spondylosis with mild to moderate bilateral foraminal stenosis, mild C4-5 spondylosis -Lumbar: spondylosis, foraminal stenosis, L2/L3 Schmorl's nodes PERTINENT IMAGING/DIAGNOSTIC TESTING X-ray spine lumbar flexion and extension only 2 to 3 views Result Date: 07/16/2024 FINDINGS: There is localized chronic minimal degenerative retrolisthesis of L3 on L4, stable in flexion and extension. There is no malalignment within the remainder of the lumbar spine. Stable chronic L2-3, L4-5, and L5-S1 degenerative disc disease. IMPRESSION: 1. Localized chronic minimal degenerative retrolisthesis of L3 on L4, stable in flexion and extension. X-ray spine lumbar ap, lat 01/18/2024 FINDINGS: Vertebral heights are normal. There is no evidence of compression fracture, spondylolysisor spondylolisthesis. There are degenerative changes in the lumbar spine. L2-L3, L4-L5 and L5-S1 disc spaces are reduced.Facet arthropathy seen at L4-L5 and L5-S1. Pedicles are intact. Both sacroiliac joints are unremarkable. There are degenerative changes in the hip joints. Bowel gas pattern is nonobstructive with significant amount of feces. IMPRESSION: * No evidence of compression fracture, spondylolisthesis or acute bony pathology. * Diffuse disc degenerative disease in the lumbar spine with reduction of disc spaces at multiple levels. Facet arthropathy seen at L4-L5 and L5-S1. X-ray spine cervical odontoid, ap, lat, flex, ext 10/24/2023 FINDINGS: Full evaluation below C6 is compromised by overlying soft tissue. The visualized vertebral body heights and disc spaces are well-maintained. Stable endplate osteophyte formation is seen. The odontoid is intact. No instability seen on either flexion or extension views. IMPRESSION: Stable endplate osteophyte formation. Otherwise normal cervical spine. Full evaluation below C6 however is compromised by overlying soft tissue.. MRI cervical 11/13/2023 [facility] Comparison: CT cervical spine 11/01/2023 Motion artifact degrades imaging. Bony alignment: Straightening Bony lesion: None Cervical cord: No significant demyelination Skull base: Unremarkable Prevertebral soft tissues: Unremarkable Vertebral arteries: Unremarkable Cervical soft tissues: Unremarkable C1-C4: Unremarkable C4-5: Mild spondylosis with patent central canal and neural foramen. C5-6: Moderate spondylosis. Moderate diffuse disc bulge. Patent central canal. Jikp-vs-mnrufbxi bilateral neural foraminal narrowing. C6-T1: Unremarkable Impression: Moderate C5-6 spondylosis with diffuse disc bulge and zfjh-qc-rymfpzyy bilateral neuralforaminal narrowing. MRI lumbar 04/15/2022 [facility] Findings: The bones of the lumbar spine are in anatomic alignment. There is preservation of vertebral body. There is Schmorl's node formation at the inferior endplate of L2 and superior endplate of L3. Disc height loss is noted above. The conus terminates at the superior endplate of the L1 vertebral body level. No epidural or paraspinous fluid collection is appreciated. T12-L1: There is normal disc, central canal, neural foramen. L1-2: There is normal disc, central canal, and neural foramen. L2-3: There is a broad-based disc bulge with facet hypertrophy. There is gety-yp-ethcouak right andmild left neural foraminal narrowing with mild spinal canal. L3-4: There is facet hypertrophy bilaterally. There is broad-based disc bulge. There is kbnt-go-zzqxgvjc bilateral neural foraminal narrowing with mild spinal canal narrowing. L4-5: There is a central disc bulge with facet. There is mild spinal canal narrowing. There is mildbilateral neural foraminal narrowing. L5-S1: There is a circumferential disc bulge with endplate osteophyte formation and facet hypertrophy. There is habr-ky-tzbjnwtp bilateral neural foraminal narrowing with mild spinal canal narrowing. Impression: At L2-3 there is a broad-based disc bulge with facet hypertrophy. There is ndwf-lp-usizkkqe right and mild left neural foraminal narrowing with mild spinal canal. This is unchanged. At L3-4 There is broad-based disc bulge. There is uqvd-sp-eoemjjli bilateral neural foraminal narrowing with mild spinal canal narrowing. This is unchanged. At L4-5 there is a central disc bulge with facet. There is mild spinal canal narrowing. There is mild bilateral neural foraminal narrowing. This is unchanged. At L5-S1 there is a circumferential disc bulge with endplate osteophyte formation and facet hypertrophy. There is dbst-xc-pxlksyzz bilateral neural foraminal narrowing with mild spinal canal narrowing. This is unchanged. MRI lumbar 03/24/2021 Schmorl's nodes are noted at L2-3. There is no abnormality conus or cauda equina. Cord signal characteristic are unremarkable. At the L5-S1 level there is no significant central canal or neural foraminal compromise. However, the disc space is narrowed and desiccated. At the L4-5 level disc desiccation is again seen with degenerative changes and slight leftward disc protrusion. However, the central canal and neural foramina remain patent. At the L3-4 level there are minor degenerative changes without significant canal or neural foraminal compromise. At the L2-3 level disc protrusion is slightly asymmetric to the right with mild right neural foraminal narrowing. The central canal is patent. At the 1-2 level there is no significant central canal or neural foraminal narrowing. No paravertebral soft tissue signal characteristic abnormality is seen. IMPRESSION: Multilevel degenerative changes without significant central canal stenosis. X-ray pelvis 04/18/2024 Closed displaced intertrochanteric fracture of right femur with routine healing, subsequent encounter Impression: 1. Stable appearance of fracture morphology and transfixing hardware. Stable positioning and alignment. X-ray knee right 1 or 2 views Result Date: 06/21/2024 Findings: An intramedullary kateryna in the femur is again demonstrated. No hardware abnormalities are seen. Chondrocalcinosis of the menisci is again demonstrated. There is no evidence for an acute osseous abnormalities. A radiopaque foreign body overlying the distal femur on the frontal view showing to be external to the patient on the lateral view. IMPRESSION: Stable right knee. EMG 2021 [facility] Conclusion: Extensively EMG of the lower extremities reveals absent sensory nerve conduction studies measuring the sural nerve and superficial peroneal nerve responses bilaterally. Motor nerve conduction studies measuring the common peroneal nerve responses of the extensor digitorum brevis and the motor nerve conduction studies measuring the tibial nerve response of the abductor hallucis muscle are normal bilaterally. The tibial F wave is prolonged on the left and normal on the right. The needle electrode exam reveals moderate chronic neural genic motor unit potential changes and a distal to proximal gradient. There is no evidence of active motor axonal loss These findings are consistent with the following: A. A generalized process such as polyneuropathy, which is axonal loss in type and moderate to severe in degree electrically. B. Due to the aforementioned generalized process, a superimposed radiculopathy cannot be excluded based on this EDX evaluation. Careful clinical and imaging correlation advised. The following portions of the patient's history were reviewed and updated as appropriate: allergies, current medications, past family history, past medical history, past social history, past surgicalhistory and problem list. ALLERGIES Allergies Allergen Reactions Insulin Glargine Nausea And Vomiting and GI Disturbance basaglar MEDICATIONS Current Outpatient Medications: albuterol (PROVENTIL HFA;VENTOLIN HFA) 90 mcg/actuation inhaler, Inhale 2 puffs every 6 (six) hoursas needed for wheezing., Disp: , Rfl: carvediloL (COREG) 3.125 mg tablet, Take 1 tablet (3.125 mg total) by mouth in the morning and 1 tablet (3.125 mg total) in the evening. Take with meals., Disp: , Rfl: citalopram (CeleXA) 20 mg tablet, Take 1 tablet (20 mg total) by mouth in the morning. Indications:major depressive disorder., Disp: , Rfl: colestipoL (COLESTID) 1 g tablet, Take 1 tablet (1 g total) by mouth in the morning., Disp: , Rfl: cyclobenzaprine (FLEXERIL) 10 mg tablet, Take 1 tablet (10 mg total) by mouth once daily at bedtime., Disp: , Rfl: [employer] G7 SENSOR device, USE DIRECTED AND CHANGE EVERY 10 DAYS, Disp: , Rfl: fenofibrate (LOFIBRA) 160 mg tablet, Take 1 tablet (160 mg total) by mouth in the morning., Disp: ,Rfl: FIASP FLEXTOUCH U-100 INSULIN 100 unit/mL (3 mL) insulin pen, , Disp: , Rfl: gabapentin (NEURONTIN) 300 mg capsule, Take 1 capsule (300 mg total) by mouth in the morning and 1 capsule (300 mg total) before bedtime., Disp: , Rfl: hydroCHLOROthiazide (HYDRODIURIL) 25 mg tablet, TAKE 1 TABLET BY MOUTH DAILY IN THE MORNING, Disp: , Rfl: hyoscyamine (ANASPAZ,LEVSIN) 0.125 mg tablet, Take 1 tablet (0.125 mg total) by mouth in the morning and 1 tablet (0.125 mg total) at noon and 1 tablet (0.125 mg total) in the evening and 1 tablet (0.125 mg total) before bedtime., Disp: , Rfl: linagliptin-metFORMIN 2.5-1,000 mg tablet, Take 1 tablet by mouth 2 (two) times daily at 0800 and 1500., Disp: , Rfl: losartan (COZAAR) 50 mg tablet, Take 1 tablet (50 mg total) by mouth nightly., Disp: 30 tablet, Rfl: 0 magnesium oxide (MAGOX) 400 mg tablet, Take 1 tablet (400 mg total) by mouth in the morning., Disp:, Rfl: omeprazole (PriLOSEC) 40 mg capsule, Take 1 capsule (40 mg total) by mouth in the morning and at bedtime., Disp: , Rfl: ondansetron ODT (ZOFRAN ODT) 4 mg disintegrating tablet, Dissolve 1 tablet (4 mg total) on tongue as needed., Disp: , Rfl: OZEMPIC 0.25 mg or 0.5 mg (2 mg/3 mL) pen injector, Inject 0.5 mg under the skin once a week. Monday, Disp: , Rfl: sucralfate (CARAFATE) 1 gram tablet, Take 1 tablet (1 g total) by mouth in the morning and 1 tablet(1 g total) at noon and 1 tablet (1 g total) in the evening and 1 tablet (1 g total) before bedtime., Disp: , Rfl: tamsulosin (FLOMAX) 0.4 mg capsule, Take 1 capsule (0.4 mg total) by mouth nightly., Disp: , Rfl: 0 traZODone (DESYREL) 50 mg tablet, Take 1 tablet (50 mg total) by mouth nightly., Disp: , Rfl: TRESIBA FLEXTOUCH U-100 100 unit/mL (3 mL) insulin pen, Inject 20 Units under the skin in the morning., Disp: , Rfl: UNIFINE PENTIPS PLUS 31 gauge x 1/4 needle, use four times a day as directed, Disp: , Rfl: 0 VIBERZI 100 mg tablet, Take 1 tablet (100 mg total) by mouth in the morning and 1 tablet (100 mg total) in the evening. Take with meals., Disp: , Rfl: XIFAXAN 550 mg tablet, Take 1 tablet (550 mg total) by mouth in the morning and at bedtime., Disp: , Rfl: LORazepam (ATIVAN) 0.5 mg tablet, Take 1 tablet by mouth 90 min prior to MRI and may take 1 tablet 30 min prior if needed for anxiety, Disp: 2 tablet, Rfl: 0 oxyCODONE-acetaminophen (PERCOCET) 5-325 mg per tablet, Take 1 tablet by mouth every 8 (eight) hours as needed for pain for up to 7 days. Max Daily Amount: 3 tablets, Disp: 21 tablet, Rfl: 0 predniSONE (DELTASONE) 20 mg tablet, Take 1 tablet (20 mg total) by mouth in the morning and 1 tablet (20 mg total) before bedtime., Disp: 14 tablet, Rfl: 0(All medications reviewed and updated) PAST MEDICAL HISTORY Past Medical History: Diagnosis Date Asthma Back pain Chronic cough from lisinopril Chronic pain disorder Colon cancer ([facility]) 2018 COPD (chronic obstructive pulmonary disease) ([facility]) Depression Diabetes mellitus type 2, controlled ([facility]) Fibromyalgia, primary Fracture of right hip, closed, initial encounter ([facility]) 01/17/2024 GERD (gastroesophageal reflux disease) Hyperlipidemia Hypertension Insulin-treated type 2 diabetes mellitus ([facility]) Joint pain Kidney stones Liver disease Low back pain Neck pain Obesity Osteoarthritis Visual impairment SOCIAL HISTORY Social History Occupational History Not on file Tobacco Use Smoking status: Every Day Current packs/day: 0.50 Average packs/day: 0.5 packs/day for 20.0 years (10.0 ttl pk-yrs) Types: Cigarettes Smokeless tobacco: Never Vaping Use Vaping status: Never Used Substance and Sexual Activity Alcohol use: Not Currently Drug use: Never Sexual activity: Defer REVIEW OF SYSTEMS Review of Systems Constitutional: Negative for chills, diaphoresis, fever and unexpected weight change. Gastrointestinal: Fecal incontinence denied Genitourinary: Negative for difficulty urinating. Denies saddle anesthesia or bladder control issues Musculoskeletal: Positive for arthralgias, back pain and gait problem. Negative for neck pain (denies today). Neurological: Positive for weakness, numbness and headaches. Psychiatric/Behavioral: Positive for sleep disturbance. Negative for dysphoric mood and suicidal ideas. PHYSICAL EXAMINATION Objective Vitals: BP (!) 172/98 Pulse 99 Ht 185.4 cm (6' 1 ) Wt 115.7 kg (255 lb) BMI 33.64 kg/m Physical Exam Constitutional: General: He is not in acute distress. Appearance: He is not ill-appearing, toxic-appearing or diaphoretic. Pulmonary: Effort: Pulmonary effort is normal. Musculoskeletal: Lumbar back: No tenderness or bony tenderness. Normal range of motion. Comments: Patient appears in pain throughout visit. He had difficulty tolerating lower extremity testing and more severe pain with lumbar exam tests. Mild C2-T12, + L1-S1 spinous process tenderness. Mild bilateral paraspinal cervical and left upper trapezius tenderness. Bilateral SIJ, right glute and right lateral hip tenderness. left thumb MCP tenderness. Lhermitte's test: painful in neck Spurling's test: painful in neck and rotation restricted bilaterally with wincing Constantino + left base of thumb, negative right Frankel left negative Tinel's at wrists + left hand and right thumb tingling Phalen's + left fingertips Stork test+ right SIJ and glute Sacral thigh thrust caused significant low back pain to flex at hip with minimal compression SLR is negative but on right with severe low back pain BELEN testing on right caused pain to shoot down anteromedial thigh to knee Log Roll + right lateral hip pain Muscle Strength 5/5 bilaterally unless noted otherwise: -Resisted scapular elevation(elevator nerves:CN XI, C3-C5) -Deltoids(C5): -Shoulder abduction(C5, C6)): left 4+ -Shoulder adduction(C5-8, T1): left 4+ -Biceps/elbow flexion(C5-C6): left 4+ -Triceps/elbow extension(C7): -Wrist extension(C6): left 4+ -Wrist flexion(C7): left 4+ -First Dorsal Interosseous(C8,T1): 4 -Abductor Digiti Minimi (C8,T1): unable to resist left reports prior fracture -Hand grasps: 4 left 4 left -Iliopsoas(T12, L1, L2, L3): 4+ right -Quadriceps(L2, L3, L4): 4+ right -Hip adductors(L2, L3, L4): 4 + -Hip abductors(L5): 4 right -Tibialis anterior (L4, L5): 4 -Tibialis posterior(S1): 4 right Standing on heels (L4) normal Standing on tip toes (S1) normal but difficult Neurological: Mental Status: He is alert. Motor: No pronator drift. Coordination: Romberg sign negative. Deep Tendon Reflexes: Reflex Scores: Tricep reflexes are 1+ on the right side and 1+ on the left side. Bicep reflexes are 1+ on the right side and 1+ on the left side. Brachioradialis reflexes are 2+ on the right side and 2+ on the left side. Patellar reflexes are 0 on the right side and 0 on the left side. Achilles reflexes are 0 on the right side and 0 on the left side. Comments: Sims's negative Ankle Clonus negative Sensation equal and intact BUE, decreased below knee's and right lateral thigh Tandem gait difficult due to back pain so he stopped BEHAVIORAL SCREENING, RED/YELLOW FLAGS Elective Fusion Surgery: (prior lumbar disc surgery) Medical Marijuana/CBD use: No Daily MME: 6 [place] Disability Score- Cervical: 29 severe [place] Disability Score- Back: 66% crippled Multiple Surgeries?: No CCSM Screening: I, V, VIII, XIII RED FLAGS Red Flags Fever: No Night Sweats: No Unintended Weight Loss: No History of Cancer: Yes Type of Cancer: colon 2018 Immunocompromised?: Diabetes Substance Abuse- Active: No Substance Abuse- Prior History: No Cauda Equina Symptoms: None YELLOW FLAGS Yellow Flag Symptomatic Depression: No Active major thought disorder: No Excessive Narcotic Use/ MEW >30 per day: No Current average daily MEQ: 6.4 OARRS/MAPS Report Red Flags: Nothing Listed Work Dissatisfaction: Yes ASSESSMENT/ PLAN Assessment 1. Lumbar radiculopathy, chronic 2. Left cervical radiculopathy 3. Bilateral hand pain 4. Bilateral hand numbness 5. Lumbar spondylosis 6. Cervical spondylosis 7. Chronic midline low back pain without sciatica 8. History of lumbar surgery 9. Anxiety Plan 1. Lumbar radiculopathy, chronic - MR lumbar spine with and without contrast; Future - LORazepam (ATIVAN) 0.5 mg tablet; Take 1 tablet by mouth 90 min prior to MRI and may take 1 tablet 30 min prior if needed for anxiety Dispense: 2 tablet; Refill: 0 - oxyCODONE-acetaminophen (PERCOCET) 5-325 mg per tablet; Take 1 tablet by mouth every 8 (eight) hours as needed for pain for up to 7 days. Max Daily Amount: 3 tablets Dispense: 21 tablet; Refill: 0 - predniSONE (DELTASONE) 20 mg tablet; Take 1 tablet (20 mg total) by mouth in the morning and 1 tablet (20 mg total) before bedtime. Dispense: 14 tablet; Refill: 0 2. Left cervical radiculopathy - EMG With NCV; Future 3. Bilateral hand pain - EMG With NCV; Future 4. Bilateral hand numbness - EMG With NCV; Future 5. Lumbar spondylosis - MR lumbar spine with and without contrast; Future 6. Cervical spondylosis - EMG With NCV; Future 7. Chronic midline low back pain without sciatica - MR lumbar spine with and without contrast; Future 8. History of lumbar surgery - MR lumbar spine with and without contrast; Future 9. Anxiety - LORazepam (ATIVAN) 0.5 mg tablet; Take 1 tablet by mouth 90 min prior to MRI and may take 1 tablet 30 min prior if needed for anxiety Dispense: 2 tablet; Refill: 0 Spine imaging reviewed with patient. There is multilevel disc space narrowing in the lumbar spine, greastest L4-S1 where facet degeneration is also noted. There is endplate spurring at L2-3 and L5-S1. There is no apparent instability in the lumbar spine. His last MRI was in 2021 showing disc bulging and facet degeneration and mild to moderate foraminal narrowing and no significant spinal canal narrowing. Patients C1-2 has normal alignment and there is no instability in the cervical spine. There is discspace narrowing at C5-6 with moderate spondylosis and disc bulging and mild to moderate bilateral foraminal stenosis. there are mild degenerative changes at C4-5. There is no sinificant spinal stenosis noted. MRI images are compromised by motion. Patient has chronic low back pain that is now severe and radiating into his right buttock/groin andmedial thigh and occasionally to his left buttock and posterior thigh. He gets diffuse numbness down his legs if he is sitting for 10 minutes. His pain is causing severe functional impairment. He could barely tolerate his lumbar exam today. BELEN did cause pain to shoot down his anteromedial thigh to his knee. He has mild lower extremity weakness on exam. He reports decreased sensation to his right lateral thigh and below his knee's. His lower extremity reflexes are absent. I have ordered a lumbar MRI to further evaluate for compressive pathology. I sent refill of Prednisone and Percocet which he previously tolerated and understands potential side effects. He does not drive so we will hold off on formal PT at this time and he can let pain be his guide with home stretches. He does not wantto return to [facility]. Can see if he would like to return to [facility] once we confirm no surgical findings. His neck is less bothersome to him and occurs on and off. He does have mostly constant medial hand and 1-2nd finger pain and intermittent left finger numbness. He has not had pain down his left arm since his shoulder was injected in November. He has neck pain with cervical compression tests but no radicular symptoms. He has + left Constantino, bilateral Tinel's at his wrists and left Phalen's tests.He has mild weakness on exam but no sensory deficit in his arms and his reflexes are symmetric. We discussed possible carpal tunnel and or hand pathology vs C6 radiculopathy contributing to his hand symptoms. I have ordered and EMG/NCV to further evaluate and provided him home stretches for his neck. 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 I discussed potential benefits and side effects of medication and the serious risk of overdose or even . Patient understands to not drive or operate/engage in heavy or endangering machinery/activities while taking the medication. 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 Concomitant use of Marijuana discouragedwhile taking prescribed controlled substances. Patient is aware of the abuse/addiction potential associated with controlled substance use especially if there is co-existing mental or substance abuse d isorder. Patient is aware of legal ramifications of diversion of controlled substances. Discussed patients' responsibility to store and dispose of controlled substance medications. I have reviewed the patient's medical record and OARRS and found no red flags that there may be abuse or diversion of c ontrolled substances. Home exercise program (HEP) provided and reviewed with the patient: Recommend: Stretches: 1-2 timesdaily, Strengthening Exercises: 3 times per week Lumbar: Double knee to chest, prayer stretch, IT band stretch, prone hip extension with bent knee, piriformis, quadriped arm/leg raises, hamstring, hip flexor, single knee to chest, prop up on elbows, cat camel stretch, pelvic tilt, tail wag, lumbar rotation, trunk stability/core: hook lying combination and bent leg lift, SLR, bridge, partial curl Cervical: trapezius, levator scapulae, posterior neck stretch, neck rotation, chin tuck/deep neck muscle strengthening, sternocleidomastoid, corner stretch, pectoralis stretch against wall, shoulder shrug, isometric strengthening, reverse wall pushups, external shoulder rotation with band, prone shoulder extension, upper body extension, scapular retraction, flexion and stabilization Follow up: pending results The patient was instructed to call if worsening or not improving. I educated the patient on s/s and provided information in the AVS regarding cauda equina and myelopathy if pertinent. I advised the patient to go to the ER if these symptoms occur. The OARRS/MAPPS database was reviewed today and found to be appropriate. No indication of medication diversion, or noncompliance. Smoking cessation provided in patient's AVS if pertinent. Patient noted to have elevated BMI which can contribute to disc degeneration. A healthy weight is recommended for spine health. The following intervention(s) were applied: encouragement to exercise.The BMI is above average; BMI management plan is completed. Thank you for the referral. Marcell Davis (Cryan)er, HOSPITAL CHIEF FINANCIAL OFFICER-BLENDER HELPER-[facility] All questions were answered during the encounter and the patient was in agreement with plan of care. Total time spent was 70 minutes: Preparing to see the patient (e.g., review of tests) Obtaining and/or reviewing separately obtained history Performing a medically appropriate examination and/or evaluation Counseling and educating the patient/family/caregiver Ordering medications, tests, or procedures Documenting clinical information in the electronic or other health record Independently interpreting results (not separately reported) and communicating results to the patient/family/caregiver DAGO High 07/18/24 1342 documented in this encounterNorth Country HospitalMelanie Clark Communications12-05-2024 Instructions* Patient Instructions* DAGO High - 07/18/2024 11:00 AM EST When your neck or back is hurting, it can affect everything you do. Whether you've had a recent minor injury or your pain has slowly developed over time, there are some things you can do at home to help ease the pain. In addition to home remedies, there are many conservative treatments to try before surgery is considered. In fact, some people aren't good candidates for surgery. Non- surgical treatments may help to improve your pain and include: physical therapy, home exercise program, prescription medications and or pain management. Here are some tips for managing spine pain at home: Keep moving. When you're in pain, the last thing you want to do is move, but this will make the pain worse over time. Make time each day for some physical activity to keep joints lubricated, muscles engaged and blood flowing. Improve your posture. Whether you're seated or standing, be mindful of having good posture throughout the day. Focus on keeping your spine in a neutral position and keeping it supported. Utilize heat and ice. Alternate heat and ice on the affected area. Heat will help loosen tight muscles and increase blood flow, while ice will help reduce inflammation. Apply each for 15 to 20 minutes before switching to the other temperature. Take gbbp-ygc-obululx medicines. The use of xzil-eao-etmaihr anti-inflammatory medications, creams,ointments and patches can help relieve pain. TENS unit. Transcutaneous electrical nerve stimulation (TENS) uses electrodes to distribute a mild electrical current. This helps block pain signals. Complementary therapies. Therapies such as massage and acupuncture can help stimulate blood flow, which is essential for a healthy spine. They can also release endorphins and relax tense muscles. If you smoke, quit smoking. Nicotine has many negative effects on the body, including inflammation and constricting blood vessels. This reduces the amount of blood and nutrients that are distributed throughout the body, including the spine. Maintaining a healthy weight. Excess weight can impact the natural curve of the spine, press on theshock-absorbing discs between the vertebrae and cause them to become herniated, pinched, or cause pressure on the nerves that travel through the central canal, and or strain the muscles and ligamentsthat support your back. It can also lead to the development of arthritis in your low back. Common conditions that can contribute to neck, back or spine pain include: Degenerative disc disease: As we age, our discs begin to lose fluid content, wear away and shrink. Facet joint arthritis: Arthritis that affects the joints that are located on the back of the spine and assist with bending, twisting and alignment. As the disc shrinks and our joints lose the fluid that lubricates them, the bones can start to rub together causing pain and bulging discs. Spinal stenosis: Herniated or bulging discs and degeneration can cause a narrowing of the spinal canal, which can puts pressure on the spinal cord and other nerves. Compression fractures: Typically, this is a result of age-related degeneration or osteoporosis. Thespinal vertebrae get small cracks, causing them to collapse. Radiculopathy: Commonly known as a pinched nerve, this condition may cause numbness, tingling, painor weakness in your arms of legs. Sciatica is one example of this where the sciatic nerve in the low back causes symptoms down the back of the legs. Pinched nerves can be caused by any of the conditions listed above. When to notify your senior publications specialist: If your neck pain or back pain does not improve or worsens. If you develop new or worsening arm or leg pain or numbness. If you develop new or worsening weakness. (If it is severe where you cannot lift your extremity youmay also need to go to the emergency room) If you have develop Cauda equina symptoms: difficulty controlling your bowel or bladder (leaking without having urge or difficulty emptying). It may also cause numbness or tingling in your genital orrectal region. This may also require a trip to the emergency room. If you develop balance issues, feel unsteady on your feet or clumsiness of the arms, hands or legs. * Attachments The following attachments cannot be sent through Care Everywhere. * Quitting Smoking ED ([place]) documented in this encounterCommunity Memorial HospitalComplix Up Health [id number] History of Present illness Narrative* Ang Figueroa MD - 06/20/2024 2:15 PM ESTAssociated Order(s): $ Large Joint Injection: R knee Post-Procedure Diagnose(s): Right knee pain, unspecified chronicity Chief complaint: right knee pain History of IMN right periprosthetic hip fracture 01/2024 ([place]) HPI: Ruth Smith is a 53 y.o. male with the aforementioned history of hip fracture and surgical intervention. The patient comes in today with complaint of right knee pain. The patient states he had an episode in April where he felt that his knee gave out on him. The patient statesthat this recurred a couple weeks ago he went to the emergency department was put on a course of steroids and provided with pain medication. The patient states he is continuing to have pain in his right knee. The patient denies any clicking or catching with ambulation. The patient denies any specific injury to his knee. He denies fevers, chills nausea or vomiting Past Medical History: Diagnosis Date Asthma Back pain Chronic cough from lisinopril Chronic pain disorder Colon cancer ([facility]) COPD (chronic obstructive pulmonary disease) ([facility]) Depression Diabetes mellitus type 2, controlled ([facility]) Fibromyalgia, primary Fracture of right hip, closed, initial encounter ([facility]) 01/17/2024 GERD (gastroesophageal reflux disease) Hyperlipidemia Hypertension Insulin-treated type 2 diabetes mellitus ([facility]) Joint pain Kidney stones Liver disease Low back pain Neck pain Obesity Osteoarthritis Visual impairment Past Surgical History: Procedure Laterality Date BACK SURGERY COLON SURGERY resection, 2018, [facility] DAVINCI REPAIR HERNIA VENTRAL N/A 10/27/2021 Performed by Ridge Cedillo MD at [facility] DENTAL SURGERY pt had all teeth removed HERNIA REPAIR x's 2 INSERTION INTRAMEDULLARY NAIL FEMUR Right 01/30/2024 Performed by Ang Figueroa MD at [facility] INSERTION INTRAMEDULLARY NAIL FEMUR-TFNA HIP FX Right 01/18/2024 Performed by Ang Figueroa MD at [facility] ORTHOPEDIC SURGERY 2008 foot, infected foot REMOVAL HARDWARE INTRAMEDULLARY NAIL/KATERYNA FEMUR Right 01/30/2024 Performed by Ang Figueroa MD at [facility] Social History Tobacco Use Smoking status: Every Day Current packs/day: 0.50 Average packs/day: 0.5 packs/day for 20.0 years (10.0 ttl pk-yrs) Types: Cigarettes Smokeless tobacco: Never Substance Use Topics Alcohol use: Not Currently Physical exam General: Well-developed well-nourished right Knee: Inspection: No obvious deformity; skin clean, dry and intact No palpable effusion AROM: Knee extension 0 degrees Knee flexion 90 degrees Palpation: Non-tender to 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 Comparments & calves soft and compressible Palpable pulses with BCR x 5 Radiographic imaging personally viewed and identify:: x-rays of the patient's right knee are personally viewed and reveal arthritic changes tricompartmentally with chondrocalcinosis in both the medial and lateral joint lines ASSESSMENT: uRth Smith is a 53 y.o. male osteoarthritis right knee PLAN: Discussed with patient that his pain may be relieved today for the next 6-8hrs and may return untilthe steroid effects in 3-5 days. Watch for fever, or increased swelling or persistent pain in the joint. Call or return to clinic prn if such symptoms occur or there is failure to improve as anticipated. The patient has follow-up scheduled in July for his hip fracture he should keep that appointment. Discussed with the patient that if he does get good relief from the cortisone injection he can repeat in 3 months if he is continuing to have knee discomfort. All questions were encouraged and addressed at today's visit. ANY GONZALES PA-C I, ANG FIGUEROA MD, personally performed the face to face evaluation on this patient. I discussed with the patient and confirmed the accuracy and completeness of the aforementioned history prepared bythe cutler practice provider, and I personally performed the clinical examination of the patient. I discussed the treatment plan with the patient. Returns in follow up today with knee pain. He has had flares up of knee pain over the past month orso. Really has no effusion and no signs of infection his range of motion is limited but much more than if he had a septic knee. X-rays show some arthritis. We did do an injection today. Please see the procedure note for that. From my standpoint we will see how that does for him and go from there. LEVEL OF SERVICE: Ortho MDM Diagnosis Complexity -: [4] MODERATE: 1 acute, complicated injury Ortho Data Level: [3] Ortho Data Limited Category 1 (need 2): Review of results and Order unique tests Ortho Tx/Test Risk Level (highest): [4] Ortho Moderate Risk Options: Prescription Drugs LEVEL OF MDM -: [4] MODERATE level based on above criteria. $ Large Joint Injection: R knee on 06/20/2024 2:43 PM Indications: pain Details: 21 G needle, anterolateral approach Medications: 40 mg triamcinolone acetonide 40 mg/mL; 5 mL BUPivacaine HCl 0.25 % (2.5 mg/mL) Ang Figueroa MD documented in this encounterKing[facility] [place] Evaluation note* Diagnosis Onset Date Resolution Status Admit Date Cirrhosis acute June 05, 2024 1:27pm GERD (gastroesophageal reflu x disease) acute June 05 1:27pm Irritable bowel syndrome wit h diarrhea acute June 05 1:27pm [facility] Work Phone: [phone]) 494-497209-05-2024 History of Present illness Narrative* Ang Figueroa MD - 04/18/2024 1:00 PM EDT CC: S/P Revision IM Nail, right hip. Subjective: HPI DOS: 01/30/2024 Ruth Smith is a 53 y.o. male who is here today for a follow-up visit. patient is now3 months out from his most recent revision IM nail. Patient has been weight-bearing with the use ofa cane. Patient states that he finished outpatient physical therapy last week. Patient states that he does continue to have some pain. Patient states that approximately 2 weeks ago he did have a slight fall while in the bathroom. Patient reports some pain with sitting for a period of time. Past Medical, Surgical, and Family Histories: Were reviewed during this visit. Social History Occupational History Not on file Tobacco Use Smoking status: Every Day Current packs/day: 0.50 Average packs/day: 0.5 packs/day for 20.0 years (10.0 ttl pk-yrs) Types: Cigarettes Smokeless tobacco: Never Vaping Use Vaping status: Never Used Substance and Sexual Activity Alcohol use: Not Currently Drug use: No Sexual activity: Defer Medications & allergies: Were reviewed at during this visit. Objective: Physical Exam General: Well-developed well-nourished Mentation: Alert and oriented. Extremity Exam: Right Hip Incisions well healed Mild pain with logroll right hip Neurovascular Motor: intact EHL, FHL, DF, PF Sensation: intact to light touch sural, saphenous, deep peroneal, superficial peroneal 2+ DP IMAGING: I personally viewed X-ray images of right femur personally reviewed and identify interval callus formation femur fracture with stable orthopedic implants Will review and confirm findings with the radiologist report when available. Diagnosis: Closed displaced intertrochanteric fracture of right femur with routine healing, subsequent encounter. Plan: Weight-bearing as tolerated right lower extremity Discussed that if he would like to continue to wean off of his cane and increase strength would recommend continue with outpatient therapy Calcium and vitamin-D supplementation Pain control - would defer pain management at this point to his pain management provider Follow-up 3 months with x-rays right femur Tom Marquez PA-C I, JASON TANK, MD, personally performed the face to face evaluation on this patient. I discussed with the patient and confirmed the accuracy and completeness of the aforementioned history prepared bythe cutler practice provider, and I personally performed the clinical examination of the patient. I discussed the treatment plan with the patient. Returned to follow up after IM nail of his femur. He is walking with a walker. He is in chronic pain management. He says his a lag is aching but he is improving clinically. He is seeing pain management chronically for long-term pain issues. From my standpoint he is doing pretty well from the femur. His fracture does appear to be willing radiographically. I see no major issues from the orthopedic standpoint. Will recommend continued physical therapy to work on mobilizing and getting stronger. We will see him back in 3 months Ang Figueroa MD documented in this encounterKing[facility] [place] Miscellaneous Notes* Telephone Encounter - Lorena Red RN - 04/04/2024 7:34 AM EDT Received orthopedic clearance for pt to proceed with Right SI joint inj with MAC sedation. Needs scheduled Needs insurance auth * Telephone Encounter - Nikia Gannon CNA - 04/04/2024 7:34 AM EDT Attempted to schedule. Carlo will call when he is able to schedule documented in this encounterKing[facility] [place]08-22-2024 Telephone encounter Note* Telephone Encounter - Lorena Red RN - 04/04/2024 7:34 AM EDT Received orthopedic clearance for pt to proceed with Right SI joint inj with MAC sedation. Needs scheduled Needs insurance auth [facility] [place]08-22-[facility]24 Telephone encounter Note* Telephone Encounter - Nikia Gannon CNA - 04/04/2024 7:34 AM EDT Attempted to schedule. Carlo will call when he is able to schedule [facility] [place]08-20-[facility] History of Present illness Narrative* Eddie Torre APRN-LICENSING REPRESENTATIVE - 04/02/2024 12:15 PM EDT [facility] [address] [place] [address] Patient: Ruth Smith Sex: male : 1970 Age: 53 y.o. PCP: DIANE MCGRATH APRN-BLENDER HELPER 04/02/2024 Ruth Smith is here for a follow up visit. Last evaluated 2020. Since that timeframe fractured his pelvis and his right femur 01/2024 with surgical intervention required per Dr Ang Figueroa. Patient was in rehab for a wk after surgery on right leg/hip and has continued with home PT to current. Patient has pain in low back that goes down right hip and wraps around to groin and into the knee. Chief Complaint Patient presents with Back Pain Neck Pain HPI: 01/2024 Patient was in rehab for a wk after surgery on right leg/hip and has continued with home PT to current. Back Pain This is a chronic problem. The current episode started more than 1 year ago (1999, 01/2024 fell andbroke pelvis and right leg). The problem occurs constantly. The problem has been gradually worsening since onset. The pain is present in the lumbar spine (right hip down to knee). The quality of the pain is described as aching, shooting and stabbing. Radiates to: low back pain to right hip down to the interior leg into groin down to knee. Pain scale: currently 8/10 can increase to 10/10 with increased activity. The pain is moderate. The pain is Worse during the day. The symptoms are aggravated by twisting, sitting, standing, position and bending (standing, walking, pushing, pulling, transition ing). Stiffness is present In the morning. Associated symptoms include headaches, leg pain (right),numbness (Below bilateral knees down to toes, Left hand numbness and tingling), tingling (Below bilateral knees down to toes, Left hand numbness and tingling) and weakness (BLE). Pertinent negatives include no chest pain or fever. Risk factors include sedentary lifestyle, lack of exercise and obesity. Treatments tried: ibuprofen, aleve, naproxen, tylenol, flexiril no relief, biofreeze, lidocaine patches, ice, heat with mild relief, Gabapentin, oxycodone with moderate relief, PT helps with movement but not so much pain chandler. Neck Pain This is a chronic problem. The current episode started more than 1 year ago (2022). The problem occurs intermittently. The problem has been unchanged. The pain is associated with nothing. The pain ispresent in the midline, left side, right side and occipital region. The quality of the pain is described as aching (dull). The pain is at a severity of 4/10. The pain is moderate. Exacerbated by: does not have all the time, no specific aggravating. Worse during: comes and goes. Associated symptoms include headaches, leg pain (right), numbness (Below bilateral knees down to toes, Left hand numbness and tingling), tingling (Below bilateral knees down to toes, Left hand numbness and tingling) and weakness (BLE). Pertinent negatives include no chest pain or fever. Treatments tried: ibuprofen, aleve, naproxen, tylenol, flexiril no relief, biofreeze, lidocaine patches, ice, heat with mild relief,Gabapentin, oxycodone with moderate relief, PT for back helps with movement but not so much pain chandler. The effect of pain on patient's ADLS: Moderate Impairment. Past Medical History: Diagnosis Date Asthma Back pain Chronic cough from lisinopril Chronic pain disorder Colon cancer ([facility]) COPD (chronic obstructive pulmonary disease) ([facility]) Depression Diabetes mellitus type 2, controlled ([facility]) Fibromyalgia, primary Fracture of right hip, closed, initial encounter ([facility]) 01/17/2024 GERD (gastroesophageal reflux disease) Hyperlipidemia Hypertension Insulin-treated type 2 diabetes mellitus ([facility]) Joint pain Kidney stones Liver disease Low back pain Neck pain Obesity Osteoarthritis Visual impairment Past Surgical History: Procedure Laterality Date BACK SURGERY COLON SURGERY resection, 2018, [facility] DAVINCI REPAIR HERNIA VENTRAL N/A 10/27/2021 Performed by Ridge Cedillo MD at [facility] DENTAL SURGERY pt had all teeth removed HERNIA REPAIR x's 2 INSERTION INTRAMEDULLARY NAIL FEMUR Right 01/30/2024 Performed by Ang Figueroa MD at [facility] INSERTION INTRAMEDULLARY NAIL FEMUR-TFNA HIP FX Right 01/18/2024 Performed by Ang Figueroa MD at [facility] ORTHOPEDIC SURGERY 2008 foot, infected foot REMOVAL HARDWARE INTRAMEDULLARY NAIL/KATERYNA FEMUR Right 01/30/2024 Performed by Ang Figueroa MD at [facility] Allergies Allergen Reactions Insulin Glargine Nausea And Vomiting and GI Disturbance basaglar Family History Problem Relation Age of Onset Heart disease Father Colon cancer Paternal Aunt Heart disease Maternal Grandmother Heart disease Paternal Grandmother Heart disease Paternal Grandfather Social History Socioeconomic History Marital status: Single Spouse name: Not on file Number of children: Not on file Years of education: Not on file Highest education level: Not on file Occupational History Not on file Tobacco Use Smoking status: Every Day Current packs/day: 0.50 Average packs/day: 0.5 packs/day for 20.0 years (10.0 ttl pk-yrs) Types: Cigarettes Smokeless tobacco: Never Vaping Use Vaping status: Never Used Substance and Sexual Activity Alcohol use: Not Currently Drug use: No Sexual activity: Defer Other Topics Concern Not on file Social History Narrative Not on file Social Determinants of Health Financial Resource Strain: Low Risk (02/03/2024) Overall Financial Resource Strain (CARDIA) Difficulty of Paying Living Expenses: Not hard at all Food Insecurity: Food Insecurity Present (04/02/2024) Hunger Screening Food Insecurity - Worry: Sometimes True Food Insecurity - Inability: Sometimes True Transportation Needs: No Transportation Needs (02/07/2024) PRAPARE - Transportation Lack of Transportation (Medical): No Lack of Transportation (Non-Medical): No Physical Activity: Insufficiently Active (02/03/2024) Exercise Vital Sign Days of Exercise per Week: 2 days Minutes of Exercise per Session: 20 min Stress: Stress Concern Present (02/03/2024) [place] [employer] - Occupational Stress Questionnaire Feeling of Stress : To some extent Social Connections: Socially Isolated (02/03/2024) Social Connection and Isolation Panel [NHANES] Frequency of Communication with Friends and Family: Twice a week Frequency of Social Gatherings with Friends and Family: Twice a week Attends [employer] Services: Never Active Member of Clubs or Organizations: No Attends Club or Organization Meetings: Never Marital Status: Never Interpersonal Safety: Not At Risk (02/03/2024) Humiliation, Afraid, Rape, and Kick questionnaire Fear of Current or Ex-Partner: No Emotionally Abused: No Physically Abused: No Sexually Abused: No Housing Instability: Low Risk (02/03/2024) Housing Instability Housing Instability: No Review of Systems Constitutional: Positive for chills. Negative for fever. HENT: Negative for congestion and sore throat. Eyes: Negative. Respiratory: Negative for cough, choking, chest tightness and shortness of breath. Cardiovascular: Negative for chest pain. Gastrointestinal: Negative. Endocrine: Negative. Genitourinary: Negative. Musculoskeletal: Positive for back pain and neck pain. Skin: Negative. Allergic/Immunologic: Negative. Neurological: Positive for tingling (Below bilateral knees down to toes, Left hand numbness and tingling), weakness (BLE), numbness (Below bilateral knees down to toes, Left hand numbness and tingling) and headaches. Psychiatric/Behavioral: Negative. Vital Signs: BP 157/83 (BP Site: Right Arm, BP Postition: Standing) Pulse 100 Resp 18 Ht 185.4 cm (6' 1 ) Wt 114.8 kg (253 lb) SpO2 98% BMI 33.38 kg/m Physical Exam: GENERAL - Healthy patient that appears stated age. HEENT - Normocephalic / Atraumatic, Extraoccular movements intact, trachea midline, thyroid within normal limits. CV - pulse regular, Warm extremities with appropriate color of nailbeds. RESP - No obvious wheezing, No Shortness of Breath, No overexertion response to exam maneuvers. COORDINATION - remains intact. PSYCH - Alert and Oriented x4, Attentive and appropriate, constitutionally normal, displays normal mood and affect per situation, answered questions appropriately during examination, demonstrated appropriate attention during discussion, demonstrated appropriate cognitive reasoning and understandingof the medical condition by asking appropriate questions regarding the diagnosis and risks/benefits/alternatives of treatment modalities. No obvious deficits in memory, reasoning, or intellect. Tenderness to palpation is noted over the Right SacroIliac Joint: Fabere sign (Keny's Test) is significantly positive, as is compression and distraction of the sacroiliac joints, which is consistent with some of the patient's normal pain. Assessment/Treatment Plan: Carlo was seen today for back pain and neck pain. Diagnoses and all orders for this visit: Disorder of sacrum - Case request operating room: INJECTION BLOCK SACROILIAC JOINT RIGHT We will obtain clearance from orthopedic surgery prior to Right Sacroiliac Joint Injection - under fluoroscopy with the use of contrast dye (unless contraindicated) It is hopeful that the described procedure will provide symptomatic pain relief. It is felt to be medically necessary noting that the patient has tried and failed more conservative modalities of therapy and this is the next most appropriate step. The procedure was described in detail to the patientas well as the potential benefits of pain reduction alongside risks of the procedure and alternatives. Risks were described as including, but not limited to bleeding, infection, nerve damage, spinal cord injury, paralysis, stroke, dural puncture headache, and medication reaction. The patient expressed understanding regarding the risks and benefits and wishes to proceed. Diagnostic SI injections should provide information to confirm that the noted SI Joint arthropathy is the patient s most significant pain generator. If this provides significant but only temporary pain relief, the patient may in the future be a candidate for radiofrequency denervation of the SI joint to provide pain relief for approximately 1 year. Follow up 2 weeks after procedure. DISCUSSION: Treatment options discussed with patient and all questions answered to patient's satisfaction. Discussed the rules and regulations surrounding prescription of opioids and compliance at length. Failure to follow the rules and regulation will result in tapering and discontinuation of medications if applicable. Prescribed medication that requires intensive monitoring for toxicity: We do not currently prescribe any controlled substance from this practice. The spine model was demonstrated and lumbar spine MRI was reviewed and used to explain the condition. OARRS: Reviewed. Follow up 2 weeks after procedure. Scribe Statement: Scribed for and in the presence of DAGO CÁRDENAS by Lorena Red RN. Provider Statement: I, DAGO CÁRDENAS, personally performed the services described in the documentation,as scribed by Lorena Red RN in my presence, and it is both accurate and complete. Lorena Red RN 04/02/24 1604 DAGO Cárdenas 04/02/24 1627 documented in this encounterKing[facility] [place]-20-[facility] Instructions* Patient Instructions* Lorena Red RN - 04/02/2024 12:15 PM EDT Facet Injection / Medial Branch Block (MBB) / Sacroiliac (SI) Joint Injection A facet injection and sacroiliac joint injection are injections of local anesthetic and steroid into a joint in the spine. A medial branch block is similar, but the medication is placed outside the joint space near the nerve that supplies the joint called the medial branch (steroid may or may not be used). You may require multiple injections depending upon how many joints are involved. How Long Will This Procedure Last? The extent and duration of pain relief may depend on the amount of inflammation and how many areas are involved. Other coexisting factors may be responsible for your pain. If your pain goes away for a short time, but then returns, you may be a candidate for radiofrequency ablation (RFA). Activity Be active. Attempt activities and movements that typically cause pain to see if it feels better while doing them. We will give you a pain diary. Please fill this out as directed by your nurse in pre-op. This will help your doctor determine the effectiveness of the injection, and how to proceed. Bring the pain diary with you to your follow-up appointment. Medications You should not take your pain medications for 4-6 hours before or after the injection in order to properly diagnose if the injection provides adequate relief. Resume your routine medications after your procedure. You may resume blood thinners per your regular schedule after the procedure. If you received sedation: If you received sedation for your procedure, you may feel sleepy or not yourself for several hours today. For the next 24 hours avoid activities that requires alertness or coordination. This includes: Driving or operating heavy machinery Using power tools Consuming alcohol Do not make important or complex decisions or sign legal documents in the next 24 hours. Other Instructions: If you feel severe pain at the injection site with swelling and redness, increased leg weakness, a fever of 101 or higher, headache (or worsening headache), changes in vision or urinary retention: Please call the office at , or have someone take you to the nearest emergency room. Tellthe emergency room staff that you recently had a spine injection. A doctor must evaluate you for bleeding and injection complications. If you lose control over bowel, bladder, or legs: Go to the nearest emergency room. documented in this encounterKing[facility] [place] History of Present illness Narrative* Tom Marquez PA-C - 03/18/2024 2:29 PM EDT He was provided a narcotic prescription and provided an education sheet regarding narcotic risks, benefits and addictive potential. An OARRS report was reviewed and was acceptable. Wean down oxycodone 5 mg q.12 hours at this time. Prescription sent to pharmacy In my clinical judgement, his requires >7 days of narcotic duration based on the injury and paintreatment needs. Tom Marquez PA-C 03/18/24 1432 documented in this encounterKing[facility] [place]08-01-20[facility] History of Present illness Narrative* Rehana Retana PA-C - 03/14/2024 1:00 PM EDT CC: S/P Revision IM Nail, right hip. Subjective: HPI DOS: 01/30/2024, 6 weeks out. Ruth Smith is a 53 y.o. male who is here today for a follow-up visit. Patient is weight-bearing as tolerated on the RLE. Pt has completed a post- operative course of Lovenox for DVT prophylaxis. Patient is ambulating with a walker with moderate difficulty- pt reports that he tried and failed to transition to a cane. Pt reports that he is working with his in-home physical therapist three times per week, and endorses that he was told he likely needs more in-home attention before transitioning to outpatient therapy. Pt reports that he is having significant pain in the right hip/groin and the knee. Pt describes thepain as throbbing in nature, and reports that he is unable to sleep more than 3-4 hours each night.Pt reports that he is taking oxycodone for pain relief TID in combination with Tylenol, further reporting little to no relief. Denies fever/chills/numbness/tingling. Past Medical, Surgical, and Family Histories: Were reviewed during this visit. Social History Occupational History Not on file Tobacco Use Smoking status: Every Day Current packs/day: 0.50 Average packs/day: 0.5 packs/day for 20.0 years (10.0 ttl pk-yrs) Types: Cigarettes Smokeless tobacco: Never Vaping Use Vaping status: Never Used Substance and Sexual Activity Alcohol use: Not Currently Drug use: No Sexual activity: Defer Medications & allergies: Were reviewed at during this visit. Objective: Physical Exam General: Well-developed well-nourished Mentation: Alert and oriented. Extremity Exam: Right Hip Inspection: Well-healed incision without evidence of erythema, edema, ecchymosis. Palpation: Pt is non-tender to palpation over the anterior and lateral hip; exquisite tenderness topalpation over the greater trochanter and right lateral thigh. ROM: Internal rotation 20 degrees External rotation 20 degrees- extremely painful for the patient. Neurovascular Motor: intact EHL, FHL, DF, PF Sensation: intact to light touch sural, saphenous, deep peroneal, superficial peroneal 2+ DP IMAGING: I personally viewed X-ray images of right hip, which demonstrate no change in position of IM nail from previous films. Will review and confirm findings with the radiologist report when available. Diagnosis: Closed displaced intertrochanteric fracture of right femur with routine healing, subsequent encounter Trochanteric bursitis of right hip. Plan: New onset trochanteric bursitis of the right hip- noted that pt is currently receiving the maximum amount of oral pain medication that can be offered, and needs to progressively continue weaning withhis next script (due 03/18/2024). Pt was informed that he is not far enough out from his surgical intervention for a steroid injection to be considered appropriate. Pt was provided an ambulatory referral to physical therapy with instructions for ultrasound with iontophoresis in an effort to provide better pain control without further pharmacologic intervention. Pt was informed that if this is not associated with improvement, he will need to be referred to pain management for further intervention.Pt verbalized understanding. Continue working with physical therapy, in-home or outpatient as documented above. WBAT on the RLE. Continue calcium and vitamin D supplementation- refill of calcium provided at patient request. Pt was informed that his next narcotic pain medication script, due 03/18/2024 as documented above, will be dosed Q12 to continue the weaning process. Pt verbalized understanding. Follow-up 6 weeks with repeat imaging of the right hip. Rehana Retana PA-C Post-Op [employer] Rehana Retana PA-C 03/14/24 1410 documented in this encounterCommunity [facility] HospitalCreactives [id number] Instructions* Patient Instructions* Rehana Retana PA-C - 03/14/2024 1:00 PM EDT Patient Education Calcium and Vitamin D (JAGDISH see shyla & CHIVO wadsworth) Brand Names: US Evert-Citrate Plus Vitamin D [OTC]; Calcet Petites [OTC]; Calcitrate [OTC] [DSC]; Calcium 500/D [OTC] [DSC]; Calcium 600+D [OTC]; Calcium 600-D [OTC] [DSC]; Calcium Citrate + D3 Maximum[OTC]; Calcium High Potency/Vitamin D [OTC]; Calcium Plus Vitamin D [OTC]; Calcium+D3 [OTC]; Caltrat e 600+D3 Soft [OTC]; Caltrate 600+D3 [OTC]; Caltrate Gummy Bites [OTC]; Laporte Calcium +D [OTC] [DSC]; Liquid Calcium with D3 [OTC]; Liquid Calcium/Vitamin D [OTC]; Os-Evert Calcium + D3 [OTC]; Os-Evert Extra D3 [OTC]; Os-Evert [OTC]; Oysco 500+D [OTC]; Oyster Calcium + D [OTC] [DSC]; Oyster Shell Calcium + D [OTC]; Oyster Shell Calcium + D3 [OTC]; Oyster Shell Calcium 250+D [OTC]; Oyster Shell [id number] + D [OTC]; Oyster Shell Calcium 500+D [OTC]; Oyster Shell Calcium Plus D [OTC]; Oyster Shell Calcium/Vit D [OTC]; Pronutrients Calcium+D3 [OTC]; Leelee-Calcium [OTC] [DSC] What is this drug used for? It is used to help growth and good health. It is used to prevent or treat soft, brittle bones (osteoporosis). It is used to treat or prevent low calcium levels. It may be given to you for other reasons. Talk with the doctor. What do I need to tell my doctor BEFORE I take this drug? If you are allergic to this drug; any part of this drug; or any other drugs, foods, or substances. Tell your doctor about the allergy and what signs you had. If you have any of these health problems: High calcium levels, high vitamin D levels, kidney stones, or low phosphate levels. This is not a list of all drugs or health problems that interact with this drug. Tell your doctor and pharmacist about all of your drugs (prescription or OTC, natural products, vitamins) and health problems. You must check to make sure that it is safe for you to take this drug with all of your drugs and health problems. Do not start, stop, or change the dose of any drug withoutchecking with your doctor. What are some things I need to know or do while I take this drug? Tell all of your health care providers that you take this drug. This includes your doctors, nurses,pharmacists, and dentists. If you are allergic to tartrazine (FD&C Yellow No. 5), talk with your doctor. Some products have tartrazine. This drug may prevent other drugs taken by mouth from getting into the body. If you take other drugs by mouth, you may need to take them at some other time than this drug. Talk with your doctor. Follow the diet plan that your doctor told you about. If you have phenylketonuria (PKU), talk with your doctor. Some products have phenylalanine. Tell your doctor if you are , plan on getting , or are breast- feeding. You will need to talk about the benefits and risks to you and the baby. What are some side effects that I need to call my doctor about right away? WARNING/CAUTION: Even though it may be rare, some people may have very bad and sometimes deadly side effects when taking a drug. Tell your doctor or get medical help right away if you have any of thefollowing signs or symptoms that may be related to a very bad side effect: Signs of an allergic reaction, like rash; hives; itching; red, swollen, blistered, or peeling skin with or without fever; wheezing; tightness in the chest or throat; trouble breathing, swallowing, ortalking; unusual hoarseness; or swelling of the mouth, face, lips, tongue, or throat. Signs of high calcium levels like weakness, confusion, feeling tired, headache, upset stomach and throwing up, constipation, or bone pain. What are some other side effects of this drug? All drugs may cause side effects. However, many people have no side effects or only have minor sideeffects. Call your doctor or get medical help if any of these side effects or any other side effects bother you or do not go away: Upset stomach or throwing up. Constipation. These are not all of the side effects that may occur. If you have questions about side effects, call your doctor. Call your doctor for medical advice about side effects. You may report side effects to your national health agency. You may report side effects to the FDA at . You may also report side effects at https://www.fda.gov/medwatch. How is this drug best taken? Use this drug as ordered by your doctor. Read all information given to you. Follow all instructionsclosely. All products: Take this drug with food. Chewable tablets: Chew well before swallowing. Some brands may be swallowed whole or dissolved in your mouth. Talk toyour pharmacist if you have questions. Powder: Mix with food or liquids before taking. Liquid: Measure liquid doses carefully. Use the measuring device that comes with this drug. If there is none, ask the pharmacist for a device to measure this drug. Some of these drugs need to be shaken before use. Be sure you know if this product needs to be shaken before using it. What do I do if I miss a dose? Take a missed dose as soon as you think about it. If it is close to the time for your next dose, skip the missed dose and go back to your normal time. Do not take 2 doses at the same time or extra doses. How do I store and/or throw out this drug? All products: Store at room temperature in a dry place. Do not store in a bathroom. Keep all drugs in a safe place. Keep all drugs out of the reach of children and pets. Throw away unused or drugs. Do not flush down a toilet or pour down a drain unless you are told to do so. Check with your pharmacist if you have questions about the best way to throw out drugs. There may be drug take-back programs in your area. Liquid: After opening, be sure you know how long the product is good for and how to store it. Ask the doctor or pharmacist if you are not sure. General drug facts If your symptoms or health problems do not get better or if they become worse, call your doctor. Do not share your drugs with others and do not take anyone else's drugs. Some drugs may have another patient information leaflet. If you have any questions about this drug,please talk with your doctor, nurse, pharmacist, or other health care provider. Some drugs may have another patient information leaflet. Check with your pharmacist. If you have any questions about this drug, please talk with your doctor, nurse, pharmacist, or other health care provider. If you think there has been an overdose, call your poison control center or get medical care right away. Be ready to tell or show what was taken, how much, and when it happened. Consumer Information Use and Disclaimer This generalized information is a limited summary of diagnosis, treatment, and/or medication information. It is not meant to be comprehensive and should be used as a tool to help the user understand and/or assess potential diagnostic and treatment options. It does NOT include all information about conditions, treatments, medications, side effects, or risks that may apply to a specific patient. Itis not intended to be medical advice or a substitute for the medical advice, diagnosis, or treatment of a health care provider based on the health care provider's examination and assessment of a patient's specific and unique circumstances. Patients must speak with a health care provider for complete information about their health, medical questions, and treatment options, including any risks or benefits regarding use of medications. This information does not endorse any treatments or medications as safe, effective, or approved for treating a specific patient. [employer] and its affiliatesdisclaim any warranty or liability relating to this information or the use thereof. The use of thisinformation is governed by the Terms of Use, available at https://www.woltersZummZummuwer.com/en/know/evtzbawl-ywxkzsgwdgtlq-zxvmy. Last Reviewed Date 2021-01-06 Copyright 2021 [employer] and its affiliates and/or licensors. All rights reserved. documented in [facility] [place] History of Present illness Narrative* Tom Marquez PA-C - 02/26/2024 11:25 AM EDT Pharmacy called stating they only had 25 tablets available. Patient had a partial fill performed. OARRS report reviewed and acceptable. Prescription for remaining 7 tablets sent to pharmacy. Tom Marquez PA-C 02/26/24 1128 documented in this encounterKing[facility] [place] History of Present illness Narrative* Tom Marquez PA-C - 02/23/2024 12:55 PM EDT He was provided a narcotic prescription and provided an education sheet regarding narcotic risks, benefits and addictive potential. An OARRS report was reviewed and was acceptable. Will continue with oxycodone Q5-6 hours at this time PRN pain. Patient will due for refill on Saturday 02/24. Refill sent to pharmacy to be picked up then. Continue with Tylenol 1000 mg every 8 hours. Patient is chronically on gabapentin. Patient is unable to take NSAIDs. In my clinical judgement, his requires >7 days of narcotic duration based on the injury and paintreatment needs. Tom Marquez PA-C 02/23/24 1259 documented in this encounterKing's [facility] [place] History of Present illness Narrative* Ang Figueroa MD - 02/22/2024 12:00 PM EDT Chief complaint: right hip fracture DOS: 01/30/24 - revision IM nail right hip HPI: Ruth Smith is a 53 y.o. male status post operative management of the aforementioned hip fracture. Patient is 3 weeks from surgery. Patient has been weight-bearing as tolerated to right lower extremity. Patient states that he continues to have pain to the right lower extremity. Patient is using a walker for ambulation. Patient states that he does have right calf pain. Patient is currently at home. Patient states he continues to have pain. Patient is currently oxycodone, Tylenol, ibuprofen, and gabapentin. Denies fever chills nausea and vomiting. Denies chest pain shortness of breath. Denies numbness tingling paresthesias. The patient is currently on DVT prophylaxis with Lovenox Past Medical History: Diagnosis Date Asthma Back pain Chronic cough from lisinopril Chronic pain disorder Colon cancer ([facility]) COPD (chronic obstructive pulmonary disease) ([facility]) Depression Diabetes mellitus type 2, controlled ([facility]) Fibromyalgia, primary Fracture of right hip, closed, initial encounter ([facility]) 01/17/2024 GERD (gastroesophageal reflux disease) Hyperlipidemia Hypertension Insulin-treated type 2 diabetes mellitus ([facility]) Joint pain Kidney stones Liver disease Low back pain Neck pain Obesity Osteoarthritis Visual impairment Past Surgical History: Procedure Laterality Date BACK SURGERY COLON SURGERY resection, 2018, [facility] DAVINCI REPAIR HERNIA VENTRAL N/A 10/27/2021 Performed by Ridge Cedillo MD at [facility] DENTAL SURGERY pt had all teeth removed HERNIA REPAIR x's 2 INSERTION INTRAMEDULLARY NAIL FEMUR Right 01/30/2024 Performed by Ang Figueroa MD at [facility] INSERTION INTRAMEDULLARY NAIL FEMUR-TFNA HIP FX Right 01/18/2024 Performed by Ang Figueroa MD at [facility] ORTHOPEDIC SURGERY 2008 foot, infected foot REMOVAL HARDWARE INTRAMEDULLARY NAIL/KATERYNA FEMUR Right 01/30/2024 Performed by Ang Figueroa MD at [facility] Social History Tobacco Use Smoking status: Every Day Current packs/day: 0.50 Average packs/day: 0.5 packs/day for 20.0 years (10.0 ttl pk-yrs) Types: Cigarettes Smokeless tobacco: Never Substance Use Topics Alcohol use: Not Currently Family History Problem Relation Age of Onset Heart disease Father Colon cancer Paternal Aunt Heart disease Maternal Grandmother Heart disease Paternal Grandmother Heart disease Paternal Grandfather Review of systems negative on a 10 point scale except for what is documented in the HPI section. Physical exam Vitals: 02/22/24 1303 Temp: 36.9 C (98.4 F) Body mass index is 33.31 kg/m . General: Well-developed well-nourished Mentation: Alert and oriented. right LE: Incision approximated with esmer, staple erythema present, esmer removed and Steri-Strips applied Pain with calf compression SILT s/s/sp/dp/pt, + motor fxn EHL, FHL, DF, PF. Comparments & calves soft and compressible Palpable pulses with BCR x 5 Radiographic imagin views right femur identify stable IM nail right hip fracture ASSESSMENT: Ruth Smith is a 53 y.o. male status post revision IM nail right hip fracture PLAN: Weight-bearing as tolerated right lower extremity Stat Doppler ultrasound of the right lower extremity to rule out DVT Continue with Lovenox injections daily x1 week then discontinue Pain control- discussed with patient that we continue to wean narcotic pain medication at this point. We typically recommend oxycodone 5 mg q.6 hours at this time. Patient is also taking Tylenol, Ibuprofen, and gabapentin for pain control. Patient is not due for a refill of pain medication at this time Calcium and vitamin-D. Follow-up 3 weeks with x-ray right femur Tom Marquez PA-C IANG MD, personally performed the face to face evaluation on this patient. I discussed with the patient and confirmed the accuracy and completeness of the aforementioned history prepared bythe cutler practice provider, and I personally performed the clinical examination of the patient. I discussed the treatment plan with the patient. Returned to follow up today after after revision hip fracture surgical intervention. He has but 3 weeks out from this. [place] removed Steri-Strips were placed. He is on Lovenox but he is having significant calf swelling thus we will get a stat Doppler. His x-rays are stable for the hip. From my standpoint recommend continued weightbearing as tolerated with physical therapy and mobilizing we will see him back in 3 weeks with x-rays of his femur. Ang Figueroa MD. Ang Figueroa MD documented in this encounterKing[facility] [place]-08-[facility] History of Present illness Narrative* Tom Marquez PA-C - 02/19/2024 1:54 PM EDT He was provided a narcotic prescription and provided an education sheet regarding narcotic risks, benefits and addictive potential. An OARRS report was reviewed and was acceptable. In my clinical judgement, his requires >7 days of narcotic duration based on the injury and paintreatment needs. Tom Marquez PA-C 02/19/24 1355 documented in this encounterKing[facility] [place]-01-2024 Miscellaneous Notes* Telephone Encounter - HUBERT Sylvester - 02/12/2024 1:40 PM EDT Patient's home health nurse called with concerns of the patient's pain level. He was provided a narcotic prescription and provided an education sheet regarding narcotic risks, benefits and addictive potential. An OARRS report was reviewed and was acceptable. In my clinical judgement, his requires >7 days of narcotic duration based on the injury and paintreatment needs. NSAIDs are being used to assist with managment of @his@ acute pain. The patient just had oxycodone filled on 02/09/2024. This medication can be refilled on 02/16/2024. documented in this encounterKing[facility] [place]-01-2024 Telephone encounter Note* Telephone Encounter - HUBERT Sylvester - 02/12/2024 1:40 PM EDT Patient's home health nurse called with concerns of the patient's pain level. He was provided a narcotic prescription and provided an education sheet regarding narcotic risks, benefits and addictive potential. An OARRS report was reviewed and was acceptable. In my clinical judgement, his requires >7 days of narcotic duration based on the injury and paintreatment needs. NSAIDs are being used to assist with managment of @his@ acute pain. The patient just had oxycodone filled on 02/09/2024. This medication can be refilled on 02/16/2024. [facility]yu [id number] History of Present illness Narrative* Edie Arreola PA-C - 02/03/2024 1:57 PM EDT Orthopedic Progress Note Subjective Ruth Smith is a 53 yrs male s/p IMN. Patient seen at bedside, states he is still in pain but his pain is tolerable. Plan to go to inpatient rehab today. Objective BP 127/69 Pulse 79 Temp 36.8 C (98.3 F) Resp 14 Ht 185.4 cm (6' 1 ) Wt 112.1 kg (247 lb 2.2 oz) SpO2 98% BMI 32.61 kg/m O2 Device: None (Room air) Lab Results Component Value Date WBC 6.4 02/03/2024 HGB 9.9 (L) 02/03/2024 HCT 29.1 (L) 02/03/2024 MCV 84 02/03/2024 PLT 238 02/03/2024 Lab Results Component Value Date GLU 168 (H) 02/03/2024 CALCIUM 8.8 02/03/2024 K 3.7 02/03/2024 CO2 26 02/03/2024 BUN 11 02/03/2024 CREATININE 0.59 (L) 02/03/2024 Microbiology Results No results found for the last 168 hours. Lab Results Component Value Date INR 1.4 (H) 01/29/2024 INR 1.0 01/17/2024 INR 1.1 01/17/2024 PROTIME 15.6 (H) 01/29/2024 PROTIME 12.2 01/17/2024 PROTIME 12.5 01/17/2024 PE: right Lower Extremity: Observation/Dressings: CDI SILT s/s/sp/dp/pt, + motor fxn EHL, FHL, DF, PF. Comparments & calves soft and compressible Palpable pulses with BCR x 5 Assessment/Plan : 1) Ruth Smith is a 53 yrs male approximately 4 Days Post-Op Post-Operative Day: 4 Days Post-Op Status post- Procedure(s): REMOVAL HARDWARE INTRAMEDULLARY NAIL/KATERYNA FEMUR (Right) - Wound Class: Clean Contaminated - IncisionClosure: Deep and Superficial Layers INSERTION INTRAMEDULLARY NAIL FEMUR (Right) - Wound Class: Clean Contaminated - Incision Closure: Deep and Superficial Layers Progress: as expected PLAN 1) Continue current plan of care: yes 2) WBAT right lower extremity 3) PT/OT- WBAT 4) Ice/elevation right LE above level of heart as tolerated. 5) DVT Proph: Lovenox x 30 days. 6) Patient stable orthopedically for discharge. Discussed this with patient at bedside. Discharge Plan:inpatient rehab today LUIS MCCARTHY PA-C 02/03/24 1400 * Lian Lambert RN - 02/02/2024 2:46 PM EDT Initial Rehab Facility Preadmission Screening Sending facility: [facility] Room number: [id number] Date of admission to hospital: 01/29/2024 PCP: Jd Du PA-C Primary insurance: Payor: MEDICARE / Plan: MEDICARE PART A & B / Product Type: *No Product type* / Policy #: [id number] - (Medicare) Secondary insurance: N/A Address: [address] [place] [phone] (home) : 1970 Age: 53 y.o. 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 male whose primary indication for inpatient rehabilitation is: Orthopedic Disorders: 08 Status Post Unilateral Hip Fracture Etiologic Diagnosis: Right periprosthetic subtrochanteric fx Patient presented to [facility] on 01/17/2024 with Right hip pain, reports he tripped over a dog & landed on his R knee. Imaging revealed a right IT nondisplaced fx. 01/18/2024 s/p IM nailing with dr Figueroa 01/22/2024 transferred to [facility] 01/29/2024 Patient was doing well postoperatively but over the weekend he was going to the bathroom when he had a fall onto his right hip. Since that time he had significantly increased pain swelling and inability to ambulate. Imaging at the time demonstrated a new fracture of his right proximal humerus around his short intramedullary nail implant. He was made nonweightbearing & f/u with ortho recommending transfer to [facility] 01/30/2024 s/p IM nailing & removal of right femur hardware with Dr Figueroa 02/01/2024 concern of right thigh swelling- ortho evaluated & noted Right leg edematous, but allcompartments soft and compressible 02/02/2024 continues to have increased pain to the RLE- dopplers pending Comorbidities/Medical issues requiring further interdisciplinary management at [facility]: Right IT nondisplaced fx WBAT Right periprosthetic subtrochanteric fx WBAT Pain management Wound care DVT ppx w/ lovenox x30 days Bowel regimen Blood loss anemia- monitory H&H Risk for compartment syndrome- monitor & f/u with ortho Mild hyponatremia resolved hydrochlorothiazide on hold . Will place on some fluid restriction Right lower extremity - right thigh swelling and ecchymosis - SILT in superficial peroneal, deep peroneal, sural, saph nerve dist - Motor function intact in tibial, deep peroneal, superficial peroneal dist - 5/5 strength, full AROM/PROM - 2+ DP/PT pulses Dressings: Intact with mild serosanguineous drainage. History of Present Illness: Patient Active Problem List Diagnosis Facial infection Abdominal pain Closed displaced intertrochanteric fracture of right femur ([facility]) Closed fracture of right hip, initial encounter ([facility]) Hip fx ([facility]) Difficulty in walking Type 2 diabetes mellitus with circulatory disorder, with long-term current use of insulin ([facility]) Primary hypertension Class 1 obesity due to excess calories with serious comorbidity and body mass index (BMI) of 31.0 to 31.9 in adult BPH (benign prostatic hyperplasia) Myah-prosthetic fracture around prosthetic hip Past Medical History: Diagnosis Date Asthma Back pain Chronic cough from lisinopril Chronic pain disorder Colon cancer ([facility]) COPD (chronic obstructive pulmonary disease) ([facility]) Depression Diabetes mellitus type 2, controlled ([facility]) Fibromyalgia, primary Fracture of right hip, closed, initial encounter ([facility]) 01/17/2024 GERD (gastroesophageal reflux disease) Hyperlipidemia Hypertension Insulin-treated type 2 diabetes mellitus ([facility]) Joint pain Kidney stones Liver disease Low back pain Neck pain Obesity Osteoarthritis Visual impairment Past Surgical History: Procedure Laterality Date BACK SURGERY COLON SURGERY resection, 2018, [facility] DAVINCI REPAIR HERNIA VENTRAL N/A 10/27/2021 Performed by Ridge Cedillo MD at [facility] DENTAL SURGERY pt had all teeth removed HERNIA REPAIR x's 2 INSERTION INTRAMEDULLARY NAIL FEMUR Right 01/30/2024 Performed by Ang Figueroa MD at [facility] INSERTION INTRAMEDULLARY NAIL FEMUR-TFNA HIP FX Right 01/18/2024 Performed by Ang Figueroa MD at [facility] ORTHOPEDIC SURGERY 2008 foot, infected foot REMOVAL HARDWARE INTRAMEDULLARY NAIL/KATERYNA FEMUR Right 01/30/2024 Performed by Ang Figueroa MD at [facility] Ongoing Medical Management Needs: Patient risk factors for clinical complication: Pain Management, Wound Care, Fall Risk, Lab Monitor, BP, and Monitor Lung Sounds Additional Clinical and Specialty needs: Safety Alarms No active infections No active isolations Medication adjust/review: Current Facility-Administered Medications Medication Dose Route Frequency Provider Last Rate Last Admin acetaminophen (TYLENOL EXTRA STRENGTH) tablet 1,000 mg 1,000 mg oral Q8H Demond Frazier MD 1,000 mgat 02/02/24 1219 calcium citrate (CALCITRATE) tablet 400 mg 400 mg oral TID with meals Demond Frazier MD 400 mg at 02/02/24 1222 carvediloL (COREG) tablet 6.25 mg 6.25 mg oral BID with meals Demond Frazier MD 6.25 mg at 142 cholecalciferol (vitamin D3) tablet 2,000 Units 2,000 Units oral Daily Demond Frazier MD 2,000 Units at 02/02/24 0839 citalopram (CeleXA) tablet 20 mg 20 mg oral Daily Deomnd Frazier MD 20 mg at 02/02/24 0839 cyanocobalamin tablet 1,000 mcg 1,000 mcg oral Daily Marsha Flores APRN-LICENSING REPRESENTATIVE 1,000 mcg at 02/02/24 0839 cyclobenzaprine (FLEXERIL) tablet 10 mg 10 mg oral BID PRN Demond Frazier MD 10 mg at 02/02/24 0836 dextrose (GLUTOSE) 40 % gel 15 g 15 g oral PRN Demond Frazier MD dextrose 5 % (D5W) infusion 100 mL/hr intravenous Continuous PRN Demond Frazier MD dextrose 50 % in water (D50W) 50% solution 25 mL 25 mL intravenous PRN Demond Frazier MD enoxaparin (LOVENOX) syringe 40 mg 40 mg subcutaneous Daily Demond Frazier MD 40 mg at 02/02/24 0521 ergocalciferol (DRISDOL) capsule 50,000 Units 50,000 Units oral Weekly Demond Frazier MD 50,000 Units at 01/29/24 1315 folic acid (FOLVITE) tablet 1 mg 1 mg oral Daily Marsha Flores APRN-LICENSING REPRESENTATIVE 1 mg at 02/02/24 0841 gabapentin (NEURONTIN) tablet 800 mg 800 mg oral TID Demond Frazier MD 800 mg at 02/02/24 1444 glucagon HCL injection 1 mg 1 mg intramuscular PRN Demond Frazier MD hydrALAZINE (APRESOLINE) injection 10 mg 10 mg intravenous Q6H PRN Demond Frazier MD HYDROmorphone (PF) (DILAUDID) injection 1 mg 1 mg intravenous Q3H PRN Jalen Gan MD 1 mg at 02/01/24 2117 hyoscyamine sulfate (LEVSIN) tablet 125 mcg 125 mcg oral 4x Daily Demond Frazier MD 125 mcg at 02/02/24 1224 insulin glargine (LANTUS, SEMGLEE) injection pen 20 Units 20 Units subcutaneous Daily Demond Frazier MD 20 Units at 02/02/24 0847 insulin lispro (HumaLOG) injection 1-5 Units 1-5 Units subcutaneous TID with meals Demond Frazier MD 1 Units at 02/02/24 1228 insulin lispro (HumaLOG) injection 2-10 Units 2-10 Units subcutaneous TID with meals Demond Frazier MD 2 Units at 02/02/24 1226 insulin lispro (HumaLOG) injection 2-8 Units 2-8 Units subcutaneous Nightly Demond Frazier MD 4 Units at 01/31/24 2138 ipratropium-albuteroL (DUONEB) 0.5 mg-3 mg(2.5 mg base)/3 mL nebulizer solution 3 mL 3 mL nebulization Q6H PRN Demond Frazier MD losartan (COZAAR) tablet 50 mg 50 mg oral Daily Malou Bergeron MD 50 mg at 02/01/242015 magnesium oxide (MAGOX) tablet 400 mg 400 mg oral Daily Demond Frazier MD 400 mg at 02/02/24 0841 naloxone (NARCAN) injection 0.2 mg 0.2 mg intravenous PRN Ross Costello PA-C ondansetron (PF) (ZOFRAN) injection 4 mg 4 mg intravenous Q4H PRN Demond Frazier MD oxyCODONE (ROXICODONE) immediate release tablet 10 mg 10 mg oral Q3H PRN Vilma Beckwith PA-C 10 mgat 02/02/24 1444 oxyCODONE (ROXICODONE) immediate release tablet 5 mg 5 mg oral Q3H PRN Vilma Beckwith PA-C pantoprazole (PROTONIX) EC tablet 40 mg 40 mg oral Daily Demond Frazier MD 40 mg at 02/02/24 0520 rifAXIMin (XIFAXAN) tablet 550 mg 550 mg oral Q12H SADA Demond Frazier MD 550 mg at 02/02/24 1219 sennosides-docusate sodium (SENOKOT-S) 8.6-50 mg 2 tablet 2 tablet oral Nightly Demond Frazier MD 2tablet at 02/01/242014 sodium chloride 0.9 % flush 3 mL 3 mL intravenous PRN Jalen Gan MD 3 mL at 02/01/24 1209 sucralfate (CARAFATE) tablet 1 g 1 g oral 4x Daily Demond Frazier MD 1 g at 02/02/24 1223 tamsulosin (FLOMAX) 24 hr capsule 0.4 mg 0.4 mg oral Nightly Demond Frazier MD 0.4 mg at 02/01/242015 traZODone (DESYREL) tablet 50 mg 50 mg oral Nightly Demond Frazier MD 50 mg at 02/01/242015 O2 Level SpO2: 96 % (02/02/24 1152) O2 Device: None (Room air) (02/02/24 1152) O2 Flow Rate (L/min): 0 L/min (02/02/24 1152) Pain Assessment: 0-10 (02/02/24 0837) Pain Score: 7 (02/02/24 1300) Pain Type: Acute pain, Surgical pain (02/02/24 0837) Pain Location: Hip, Leg (02/02/24 0837) Pain Orientation: Right (02/02/24 0837) Pain Radiating Towards: to knee (02/02/24 0437) Pain Descriptors: Sharp, Shooting (02/02/24 0437) Pain Frequency: Constant/continuous (02/02/24436) Pain Onset: Ongoing (02/02/24436) Clinical Progression: Not changed (02/02/24436) Effect of Pain on Daily Activities: comfort, mobility (02/02/24836) Patient's Stated Pain Goal: No pain (02/02/24836) Pain Intervention(s): Repositioned, Ambulation/increased activity, Elevated, Cold applied () Response to Interventions: Quiet, No grimacing (02/02/24836) Multiple Pain Sites: No (02/02/24436) Wound Assessment: Skin: Skin Color: Pale, Red (02/02/24799) Skin Temp: Warm, Dry (02/02/24799) Skin Integrity: Bruising, Swelling (02/02/24799) risk: turn and position every 2 hours and pressure relief every 20 minutes while up in chair, active wound: yes Dialysis? No Language/Cognition: Andorran [22] Hearing / Speech / Vision Hearing: Within Functional Limits Speech: Within Functional Limits Current Vision: Wears glasses only for reading Cognition Orientation Level: Oriented X4 Other: pt. very anxious - requires increased time/effort to complete all tasks. 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 [2] BP 123/73 Pulse 88 Temp 36.8 C (98.3 F) (Oral) Resp 15 Ht 185.4 cm (6' 1 ) Wt 112.1 kg (247 lb 2.2 oz) SpO2 96% BMI 32.61 kg/m Lab Results Component Value Date SODIUM 136 02/02/2024 Lab Results Component Value Date K 3.9 02/02/2024 Lab Results Component Value Date CL 98 02/02/2024 Lab Results Component Value Date CO2 27 02/02/2024 Lab Results Component Value Date BUN 14 02/02/2024 Lab Results Component Value Date CREATININE 0.63 02/02/2024 Lab Results Component Value Date GLU 167 (H) 02/02/2024 Lab Results Component Value Date CALCIUM 9.3 02/02/2024 Lab Results Component Value Date ALBUMIN 4.0 01/23/2024 Lab Results Component Value Date ALKPHOS 47 01/23/2024 Lab Results Component Value Date ALT 9 01/23/2024 Lab Results Component Value Date AST 21 01/23/2024 Lab Results Component Value Date WBC 6.4 02/02/2024 Lab Results Component Value Date RBCCOUNT 3.58 (L) 02/02/2024 Lab Results Component Value Date HGB 10.3 (L) 02/02/2024 Lab Results Component Value Date HCT 30.3 (L) 02/02/2024 Lab Results Component Value Date PLT 235 02/02/2024 Lab Results Component Value Date MCV 85 02/02/2024 No results found for: PT Lab Results Component Value Date INR 1.4 (H) 01/29/2024 Nutritional Status: Height: Height: 185.4 cm (6' 1 ) (01/29/24 1112) Weight: Weight: 112.1 kg (247 lb 2.2 oz) () Diet: Dietary Orders (From admission, onward) Start Ordered 01/31/24 0741 Adult diet Regular Texture; Consistent Carb 210 grams (1800 kcal); Fluid Restriction 1500 mL Diet effective now Question Answer Comment Diet Type: Regular Texture Carbohydrate Modifiers: Consistent Carb 210 grams (1800 kcal) Fluid Restrictions: Fluid Restriction 1500 mL 01/31/24 0740 (Show up to 1 orders; newest on the left.) None Allergies: Insulin glargine Tube Feed: Elimination: Urine Amount: Large (02/01/24 0031) Bowel Incontinence: No (02/02/24 040) Unmeasured Stool Occurrence: 0 (01/31/24 1600) Last BM Date: 01/31/24 (02/02/24 08) Level of function prior to event/condition leading to need for intensive rehabilitation therapy: Prior Function Lives With: Alone (01/31/24904) Receives Help From: Neighbor (01/31/24904) Level of Mobility: Independent with ADLs and functional transfers or gait (01/31/24904) Homemaking Assistance: Independent (Except for driving) (01/31/24904) Driving: Total assist (01/31/24903) Other: Prior to injury pt completely independent without devices. He had been at [facility] just prior to this adm and amb short distances on his own with rw per his report. (01/31/24904) Speech Therapy: No Speech/Language Impressions: Swallowing Impressions: Current Level of Function - Physical Therapy: Mobility/transfers: Supine to Sit: Mod assist (of 2) (02/01/24 1003) Sit to Supine: Unable to assess (02/01/24 100) Transfers Sit to Stand: Min assist, Verbal cues, Tactile cues (x2) (02/02/24836) Stand to Sit: Min assist, Verbal cues, Tactile cues (x2) (02/02/24836) Bed to Chair: Min assist (of 2) (02/01/24 1003) Other: Patient cued for hand placement/technique for safe sit<>stand transfers- Min Ax2 neededto complete full stand from level bed height. Cues to reach back prior to sitting-Min Ax2 offered to prevent uncontrolled descend when sitting. (02/02/24836) Ambulation: Gait Base of Support: Within Functional Limits (02/01/24 1438) Pattern: Decreased jesusita, Antalgic gait, R Decreased heel strike, L Decreased heel strike, R Decreased foot clearance, L Decreased foot clearance, L Decreased stance time, R Decreased stance time, R Flexed knee (02/02/24836) Gait Assistance: Mod assist, Standby assist (Mod A +SBA for close recliner follow\) (02/02/24836) Assistive Device: Rolling walker (02/02/24836) Gait Distance: 10ftx1 (02/02/24836) Limiting Factors to Gait: Fatigue, Weakness, Pain (02/02/24836) 2 Turns: Not attempted d/t safety concerns (02/02/24836) Other: Patient demenoch major difficulties lifting and advancing BLEs this session- Observable B knee flexion/buckling throughout-Worse as patient fatigued. Cues for AD proximity to increase safety and stability within walker frame-Mod Ax1 offered for safety and standing support throughout +SBA for close recliner follow. no major LOB noted. (02/02/24836) Activity limitations: Activity Tolerance Endurance: Tolerates 30 minutes activity with rest breaks (02/02/24836) Other: Extra time/effort needed to complete all functional mobility due to weakness/lethargy/pain. Limited/poor ambulation tolerance-Increased need compared to previous session-Deferred additional ambulation due to safety concerns. AAROM needed to complete RLE exercises through end range-Limited by pain (02/02/24836) Weight-bearing: Current Level of Function - Occupational Therapy: Hand Dominance: Hand Dominance: Right (01/31/24903) Where Assessed: Where Assessed: Edge of bed, Chair (01/31/24903) Equipment Used: Feeding: Eating Assistance: Setup (01/31/24903) Grooming: Grooming Assistance: Setup (01/31/24903) Oral Hygiene: Bathing:Bathing/Showering Assistance: Max assist (01/31/24903) Shower: Toilet/Commode Toilet/Commode Assistance: Max assist (01/31/24903) Dressing: UE Dressing Assistance: Min assist (01/31/24903) LE Dressing Assistance: Max assist (01/31/24903) Other:Other: ADLs were not the focus of this session. (02/02/24812) Home Environment: Home: Home Living Type of Home: Apartment (1st floor) (01/31/24904) Home Layout: One level (01/31/24904) Stairs to Enter: 1 (01/31/24904) Hand Rails: None (01/31/24904) Stairs in Home: 0 (01/31/24904) Bathroom Shower/Tub: Tub/shower unit (01/31/24904) Bathroom Toilet: Standard (01/31/24904) Bathroom Equipment: Hand-held shower, Non skid shower floor, Shower chair (01/31/24904) Home Equipment: Rolling walker, Cane, Agriculture Professor (01/31/24904) Other : No AE/DME needs prior to initial injury (01/31/24903) Lives with: Lives With: Alone (01/31/24904) Additional support system: Receives Help From: Neighbor (01/31/24904) Therapy Plan: The patient requires the active and ongoing therapeutic interventions of multiple therapy disciplines. The patient has a need for intensive rehabilitation with the following disciplines: Physical Therapy and Occupational Therapy Expected PT frequency and duration: 5 days per week for 10 days Expected OT frequency and duration: 5 days per week for [address] frequency and duration: N/A Is the patient sufficiently stable, willing, and able to participate to tolerate an Intensive Rehabilitation Program that consists of at least 3 hours of therapy per day, 5 days per week? Yes Does the patient require supervision by a rehabilitation physician to assess and modify the course of treatment for medical and functional needs? yes Is the patient's condition and functional status expected to make measurable improvements and will the patient significantly benefit from the intensive rehabilitation program? yes Does the patient require an intensive and coordinated interdisciplinary approach to providing rehabilitation? yes Prognosis/expected level of improvement: Independent Expected discharge disposition: Home Expected length of stay: 2 weeks Anticipated post-discharge treatments: Outpatient Therapy Services, Follow-up with PCP, and Orthopedic Surgeon Associated attestation - Erick Sharp DO - 02/02/2024 3:48 PM EDT By signing this document, I have reviewed and concur with the findings and results of the preadmission screening. Erick Sharp DO * Leatha Mcguire MD - 02/02/2024 10:18 AM EDT 02/02/2024 Patient Name: Ruth Smith : 1970 Code status: Problem List: Principal Problem: Closed fracture of right hip, initial encounter ([facility]) Active Problems: Myah-prosthetic fracture around prosthetic hip SUBJECTIVE: Chief complaints: Left hip pain after fall follow-up HPI:53-year-old male with history of hypertension diabetes mellitus type 2 COPD and hep C cirrhosispresenting after fall and landing on right hip causing worsening pain. Initial x-rays did not show any fracture. CT of the hip showed periprosthetic right hip fracture and patient is status post surgery. Postop day 3 No chest pain no shortness a breath. Still complains of pain in the operated site not controlled. No fever no chills. Review of Systems - General ROS: negative for - chills or fever Respiratory ROS: no cough, shortness of breath, or wheezing Cardiovascular ROS: no chest pain or dyspnea on exertion OBJECTIVE: Exam: BP 126/80 Pulse 92 Temp 36.5 C (97.7 F) (Oral) Resp 15 Ht 185.4 cm (6' 1 ) Wt 112.1 kg (247 lb 2.2 oz) SpO2 95% BMI 32.61 kg/m Intake/Output Summary (Last 24 hours) at 02/02/2024 1018 Last data filed at 02/02/2024 0441 Gross per 24 hour Intake 950 ml Output 2850 ml Net -1900 ml PHYSICAL EXAM: GENERAL: Patient awake oriented x3 does not appear in any distress. CVS: S1-S2 heard no murmurs, rubs or gallops. RESPIRATORY: Bilateral air entry with no crackles or wheezing. ABDOMEN: Soft nontender nondistended bowel sounds present no CVA tenderness no guarding rigidity orrebound tenderness. Medications: Scheduled Medications: acetaminophen, 1,000 mg, oral, Q8H calcium citrate, 400 mg, oral, TID with meals carvediloL, 6.25 mg, oral, BID with meals cholecalciferol (vitamin D3), 2,000 Units, oral, Daily citalopram, 20 mg, oral, Daily cyanocobalamin, 1,000 mcg, oral, Daily enoxaparin (LOVENOX) injection, 40 mg, subcutaneous, Daily ergocalciferol, 50,000 Units, oral, Weekly folic acid, 1 mg, oral, Daily gabapentin, 800 mg, oral, TID hyoscyamine sulfate, 125 mcg, oral, 4x Daily insulin glargine, 20 Units, subcutaneous, Daily insulin lispro, 1-5 Units, subcutaneous, TID with meals insulin lispro, 2-10 Units, subcutaneous, TID with meals insulin lispro, 2-8 Units, subcutaneous, Nightly losartan, 50 mg, oral, Daily magnesium oxide, 400 mg, oral, Daily pantoprazole, 40 mg, oral, Daily rifAXIMin, 550 mg, oral, Q12H SADA sennosides-docusate sodium, 2 tablet, oral, Nightly sucralfate, 1 g, oral, 4x Daily tamsulosin, 0.4 mg, oral, Nightly traZODone, 50 mg, oral, Nightly Infusions: dextrose 5 % in water, 100 mL/hr PRN medications cyclobenzaprine, 10 mg, BID PRN dextrose, 15 g, PRN dextrose 5 % in water, 100 mL/hr, Continuous PRN dextrose 50 % in water (D50W), 25 mL, PRN glucagon (human recombinant), 1 mg, PRN hydrALAZINE, 10 mg, Q6H PRN HYDROmorphone, 1 mg, Q3H PRN ipratropium-albuteroL, 3 mL, Q6H PRN naloxone, 0.2 mg, PRN ondansetron, 4 mg, Q4H PRN oxyCODONE, 10 mg, Q4H PRN oxyCODONE, 5 mg, Q4H PRN sodium chloride, 3 mL, PRN Labs: Recent Results (from the past 48 hour(s)) Bedside Glucose *Place/Obtain serum glucose if >500(>600 MRH) per glucometer. Collection Time: 01/31/24 11:35 AM Result Value Ref Range Bedside glucose 185 (H) 65 - 99 mg/dL Sodium, urine, random Collection Time: 01/31/24 3:58 PM Result Value Ref Range Sodium Urine Random 10 mmol/L Osmolality, urine Collection Time: 01/31/24 3:58 PM Result Value Ref Range Osmolality, Ur 521 300 - 1,300 mOsm/kg H2 Bedside Glucose *Place/Obtain serum glucose if >500(>600 MRH) per glucometer. Collection Time: 01/31/24 3:59 PM Result Value Ref Range Bedside glucose 145 (H) 65 - 99 mg/dL Bedside Glucose *Place/Obtain serum glucose if >500(>600 MRH) per glucometer. Collection Time: 01/31/24 9:32 PM Result Value Ref Range Bedside glucose 260 (H) 65 - 99 mg/dL Bedside Glucose *Place/Obtain serum glucose if >500(>600 MRH) per glucometer. Collection Time: 02/01/24 8:15 AM Result Value Ref Range Bedside glucose 125 (H) 65 - 99 mg/dL Basic Metabolic Panel Collection Time: 02/01/24 10:35 AM Result Value Ref Range Sodium 134 134 - 146 mmol/L Potassium, Bld 3.8 3.5 - 5.0 mmol/L Chloride 98 98 - 109 mmol/L CO2 23 22 - 32 mmol/L Anion gap 13 5 - 15 mmol/L BUN 15 5 - 23 mg/dL Creatinine 0.66 0.60 - 1.30 mg/dL Glucose 130 (H) 65 - 99 mg/dL Calcium 9.0 8.5 - 10.5 mg/dL eGFR (CKD-EPI)non-race dependent >90 >59 ml/min/1.73sq.m Bedside Glucose *Place/Obtain serum glucose if >500(>600 MRH) per glucometer. Collection Time: 02/01/24 11:03 AM Result Value Ref Range Bedside glucose 132 (H) 65 - 99 mg/dL CBC auto differential Collection Time: 02/01/24 12:20 PM Result Value Ref Range White Blood Cells 6.5 4.0 - 11.0 X10E9/L RBC count 3.69 (L) 4.10 - 5.70 X10E12/L Hemoglobin 10.8 (L) 13.0 - 17.0 g/dL Hematocrit 31.0 (L) 39 - 49 % MCV 84 80 - 100 fL MCH 29.2 27 - 34 pg MCHC 34.7 32 - 36 g/dL RDW 15.5 (H) 11.5 - 15.0 % Platelets 273 150 - 450 X10E9/L MPV 10.4 7 - 12 fL % neutrophils 69.6 % % lymphocytes 20.0 % % monocytes 8.5 % % eosinophils 1.0 % % Basophils 0.9 % Neutrophils Absolute (A) 4.5 1.5 - 6.6 X10E9/L Lymphocytes Absolute 1.3 1.0 - 3.5 X10E9/L Monocytes Absolute 0.6 0 - 0.9 X10E9/L Eosinophils Absolute 0.1 0.0 - 0.4 X10E9/L Basophils Absolute 0.1 0.0 - 0.2 X10E9/L Bedside Glucose *Place/Obtain serum glucose if >500(>600 MRH) per glucometer. Collection Time: 02/01/24 3:39 PM Result Value Ref Range Bedside glucose 232 (H) 65 - 99 mg/dL Bedside Glucose *Place/Obtain serum glucose if >500(>600 MRH) per glucometer. Collection Time: 02/01/24 9:17 PM Result Value Ref Range Bedside glucose 135 (H) 65 - 99 mg/dL CBC auto differential Collection Time: 02/02/24 7:00 AM Result Value Ref Range White Blood Cells 6.4 4.0 - 11.0 X10E9/L RBC count 3.58 (L) 4.10 - 5.70 X10E12/L Hemoglobin 10.3 (L) 13.0 - 17.0 g/dL Hematocrit 30.3 (L) 39 - 49 % MCV 85 80 - 100 fL MCH 28.9 27 - 34 pg MCHC 34.1 32 - 36 g/dL RDW 15.9 (H) 11.5 - 15.0 % Platelets 235 150 - 450 X10E9/L MPV 10.0 7 - 12 fL % neutrophils 67.0 % % lymphocytes 21.4 % % monocytes 9.4 % % eosinophils 1.2 % % Basophils 1.0 % Neutrophils Absolute (A) 4.3 1.5 - 6.6 X10E9/L Lymphocytes Absolute 1.4 1.0 - 3.5 X10E9/L Monocytes Absolute 0.6 0 - 0.9 X10E9/L Eosinophils Absolute 0.1 0.0 - 0.4 X10E9/L Basophils Absolute 0.1 0.0 - 0.2 X10E9/L Basic Metabolic Panel Collection Time: 02/02/24 7:00 AM Result Value Ref Range Sodium 136 134 - 146 mmol/L Potassium, Bld 3.9 3.5 - 5.0 mmol/L Chloride 98 98 - 109 mmol/L CO2 27 22 - 32 mmol/L Anion gap 11 5 - 15 mmol/L BUN 14 5 - 23 mg/dL Creatinine 0.63 0.60 - 1.30 mg/dL Glucose 143 (H) 65 - 99 mg/dL Calcium 9.3 8.5 - 10.5 mg/dL eGFR (CKD-EPI)non-race dependent >90 >59 ml/min/1.73sq.m Bedside Glucose *Place/Obtain serum glucose if >500(>600 MRH) per glucometer. Collection Time: 02/02/24 8:04 AM Result Value Ref Range Bedside glucose 146 (H) 65 - 99 mg/dL Assessment and Plan: 53-year-old male 1. Right intertrochanteric hip fracture with new periprosthetic subtrochanteric fracture after a 2nd fall patient status post intramedullary nail right intertrochanteric/subtrochanteric hip fracture and removal of hardware right femur postop day 3. Pain better controlled continue to monitor Management will be as per Orthopedics as thigh was still soft and feel right thigh swelling extensive bruising from previous fracture and surgery and current surgery Orthopedics did not feel consistent with compartment syndrome Patient lost his IV access overnight and nurses trying to place a line and give him 1 time dose of IV Dilaudid. 2. Mild hyponatremia resolved hydrochlorothiazide on hold . Will place on some fluid restriction and check urine electrolytes. Monitor closely. 3. Acute blood loss anemia from periprosthetic fracture and expected from blood loss from surgery. Monitor hemoglobin closely. 4. History of COPD without exacerbation 5. Diabetes mellitus type 2 on Lantus and insulin sliding scale monitor glucose 6. Severe obesity BMI of 33 counseled patient 7. History hypertension Continue Coreg and losartan monitor blood pressure closely 8. History of chronic pain 9. History of BPH 10. Enoxaparin for DVT prophylaxis Monitor patient closely. Patient does not Feel ready for discharge today and want the pain better controlled before discharge. Discharge planning to rehab facility I have discussed with orthopedic team regarding patient's uncontrolled pain they will adjust the pain medications will monitor closely. Addendum Venous thromboembolism appears less likely more likely secondary to bleeding and hematoma from postop. Discussed with orthopedics. Will check a venous duplex of right lower extremity * Leatha Mcguire MD - 02/01/2024 10:18 AM EDT 02/01/2024 Patient Name: Ruth Smith : 1970 Code status: Problem List: Principal Problem: Closed fracture of right hip, initial encounter ([facility]) Active Problems: Myah-prosthetic fracture around prosthetic hip SUBJECTIVE: Chief complaints: Left hip pain after fall follow-up HPI:53-year-old male with history of hypertension diabetes mellitus type 2 COPD and hep C cirrhosispresenting after fall and landing on right hip causing worsening pain. Initial x-rays did not show any fracture. CT of the hip showed periprosthetic right hip fracture and patient is status post surgery. Postop day 2 Still continued to have some pain in the operated site. No fever no chills Review of Systems - General ROS: negative for - chills or fever Respiratory ROS: no cough, shortness of breath, or wheezing Cardiovascular ROS: no chest pain or dyspnea on exertion OBJECTIVE: Exam: BP 121/73 Pulse 75 Temp 36.5 C (97.7 F) (Oral) Resp 12 Ht 185.4 cm (6' 1 ) Wt 112.1 kg (247 lb 2.2 oz) SpO2 90% BMI 32.61 kg/m Intake/Output Summary (Last 24 hours) at 02/01/2024 1020 Last data filed at 02/01/2024 0823 Gross per 24 hour Intake 1660 ml Output 2550 ml Net -890 ml PHYSICAL EXAM: GENERAL: Patient awake oriented x3 does not appear in any distress. CVS: S1-S2 heard no murmurs, rubs or gallops. RESPIRATORY: Bilateral air entry with no crackles or wheezing. ABDOMEN: Soft nontender nondistended bowel sounds present no CVA tenderness no guarding rigidity orrebound tenderness. EXTREMITIES: Pedal edema right lower extremity and no pedal edema left lower extremity also hematoma and swelling of the right thigh Medications: Scheduled Medications: acetaminophen, 1,000 mg, oral, Q8H calcium citrate, 400 mg, oral, TID with meals carvediloL, 6.25 mg, oral, BID with meals cholecalciferol (vitamin D3), 2,000 Units, oral, Daily citalopram, 20 mg, oral, Daily cyanocobalamin, 1,000 mcg, oral, Daily enoxaparin (LOVENOX) injection, 40 mg, subcutaneous, Daily ergocalciferol, 50,000 Units, oral, Weekly folic acid, 1 mg, oral, Daily gabapentin, 800 mg, oral, TID hyoscyamine sulfate, 125 mcg, oral, 4x Daily insulin glargine, 20 Units, subcutaneous, Daily insulin lispro, 1-5 Units, subcutaneous, TID with meals insulin lispro, 2-10 Units, subcutaneous, TID with meals insulin lispro, 2-8 Units, subcutaneous, Nightly losartan, 50 mg, oral, Daily magnesium oxide, 400 mg, oral, Daily pantoprazole, 40 mg, oral, Daily rifAXIMin, 550 mg, oral, Q12H SADA sennosides-docusate sodium, 2 tablet, oral, Nightly sucralfate, 1 g, oral, 4x Daily tamsulosin, 0.4 mg, oral, Nightly traZODone, 50 mg, oral, Nightly Infusions: dextrose 5 % in water, 100 mL/hr PRN medications cyclobenzaprine, 10 mg, BID PRN dextrose, 15 g, PRN dextrose 5 % in water, 100 mL/hr, Continuous PRN dextrose 50 % in water (D50W), 25 mL, PRN glucagon (human recombinant), 1 mg, PRN hydrALAZINE, 10 mg, Q6H PRN HYDROmorphone, 1 mg, Q3H PRN ipratropium-albuteroL, 3 mL, Q6H PRN naloxone, 0.2 mg, PRN ondansetron, 4 mg, Q4H PRN oxyCODONE, 10 mg, Q4H PRN oxyCODONE, 5 mg, Q4H PRN sodium chloride, 3 mL, PRN Labs: Recent Results (from the past 48 hour(s)) Bedside Glucose *Place/Obtain serum glucose if >500(>600 MRH) per glucometer. Collection Time: 01/30/24 6:16 PM Result Value Ref Range Bedside glucose 276 (H) 65 - 99 mg/dL Bedside Glucose *Place/Obtain serum glucose if >500(>600 MRH) per glucometer. Collection Time: 01/30/24 9:15 PM Result Value Ref Range Bedside glucose 279 (H) 65 - 99 mg/dL Basic Metabolic Panel Collection Time: 01/31/24 5:18 AM Result Value Ref Range Sodium 131 (L) 134 - 146 mmol/L Potassium, Bld 4.1 3.5 - 5.0 mmol/L Chloride 95 (L) 98 - 109 mmol/L CO2 24 22 - 32 mmol/L Anion gap 12 5 - 15 mmol/L BUN 13 5 - 23 mg/dL Creatinine 0.64 0.60 - 1.30 mg/dL Glucose 205 (H) 65 - 99 mg/dL Calcium 9.0 8.5 - 10.5 mg/dL eGFR (CKD-EPI)non-race dependent >90 >59 ml/min/1.73sq.m CBC without diff Collection Time: 01/31/24 5:18 AM Result Value Ref Range White Blood Cells 11.2 (H) 4.0 - 11.0 X10E9/L RBC count 3.26 (L) 4.10 - 5.70 X10E12/L Hemoglobin 9.4 (L) 13.0 - 17.0 g/dL Hematocrit 27.1 (L) 39 - 49 % MCV 83 80 - 100 fL MCH 28.8 27 - 34 pg MCHC 34.7 32 - 36 g/dL RDW 15.7 (H) 11.5 - 15.0 % Platelets 230 150 - 450 X10E9/L MPV 10.4 7 - 12 fL Osmolality Collection Time: 01/31/24 5:18 AM Result Value Ref Range Osmolality 279 (L) 280 - 300 mOsm/kg H2 Bedside Glucose *Place/Obtain serum glucose if >500(>600 MRH) per glucometer. Collection Time: 01/31/24 7:45 AM Result Value Ref Range Bedside glucose 198 (H) 65 - 99 mg/dL Bedside Glucose *Place/Obtain serum glucose if >500(>600 MRH) per glucometer. Collection Time: 01/31/24 11:35 AM Result Value Ref Range Bedside glucose 185 (H) 65 - 99 mg/dL Sodium, urine, random Collection Time: 01/31/24 3:58 PM Result Value Ref Range Sodium Urine Random 10 mmol/L Osmolality, urine Collection Time: 01/31/24 3:58 PM Result Value Ref Range Osmolality, Ur 521 300 - 1,300 mOsm/kg H2 Bedside Glucose *Place/Obtain serum glucose if >500(>600 MRH) per glucometer. Collection Time: 01/31/24 3:59 PM Result Value Ref Range Bedside glucose 145 (H) 65 - 99 mg/dL Bedside Glucose *Place/Obtain serum glucose if >500(>600 MRH) per glucometer. Collection Time: 01/31/24 9:32 PM Result Value Ref Range Bedside glucose 260 (H) 65 - 99 mg/dL Bedside Glucose *Place/Obtain serum glucose if >500(>600 MRH) per glucometer. Collection Time: 02/01/24 8:15 AM Result Value Ref Range Bedside glucose 125 (H) 65 - 99 mg/dL Assessment and Plan: 53-year-old male 1. Right intertrochanteric hip fracture with new periprosthetic subtrochanteric fracture after a 2nd fall patient status post intramedullary nail right intertrochanteric/subtrochanteric hip fracture and removal of hardware right femur postop day 2. Pain better controlled continue to monitor Management will be as per Orthopedics Discussed with Dr. Figueroa regarding reviewing patient's thigh hematoma. Orthopedic say that patient had some extensive superficial hematoma and thigh swelling even after for surgery and Orthopedics will review. Patient appears mildly volume overloaded will do 1 dose of Lasix Monitor closely Discharge planning 2. Mild hyponatremia hydrochlorothiazide on hold . Will place on some fluid restriction and check urine electrolytes. Monitor closely. 3. Acute blood loss anemia from periprosthetic fracture and expected from blood loss from surgery. Monitor hemoglobin closely. 4. History of COPD without exacerbation 5. Diabetes mellitus type 2 on Lantus and insulin sliding scale monitor glucose 6. Severe obesity BMI of 33 counseled patient 7. History hypertension Continue Coreg and losartan monitor blood pressure closely 8. History of chronic pain 9. History of BPH 10. Enoxaparin for DVT prophylaxis * Lian Lambert RN - 02/01/2024 9:57 AM EDT Initial Rehab Facility Preadmission Screening Sending facility: [facility] Room number: [id number] Date of admission to hospital: 01/29/2024 PCP: Jd Du PA-C Primary insurance: Payor: MEDICARE / Plan: MEDICARE PART A & B / Product Type: *No Product type* / Policy #: [id number] - (Medicare) Secondary insurance: N/A Address: [address] [place] [id number] (home) : 1970 Age: 53 y.o. 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 male whose primary indication for inpatient rehabilitation is: Orthopedic Disorders: 03.24 Status Post Unilateral Hip Fracture Etiologic Diagnosis: Right periprosthetic subtrochanteric fx Patient presented to [facility] on 01/17/2024 with Right hip pain, reports he tripped over a dog & landed on his R knee. Imaging revealed a right IT nondisplaced fx. 01/18/2024 s/p IM nailing with dr Figueroa 01/22/2024 transferred to [facility] 01/29/2024 Patient was doing well postoperatively but over the weekend he was going to the bathroom when he had a fall onto his right hip. Since that time he had significantly increased pain swelling and inability to ambulate. Imaging at the time demonstrated a new fracture of his right proximal humerus around his short intramedullary nail implant. He was made nonweightbearing & f/u with ortho recommending transfer to [facility] 01/30/2024 s/p IM nailing & removal of right femur hardware with Dr Figueroa Comorbidities/Medical issues requiring further interdisciplinary management at [facility]: Right IT nondisplaced fx WBAT Right periprosthetic subtrochanteric fx WBAT Pain management Wound care DVT ppx w/ lovenox x30 days Bowel regimen Right lower extremity - right thigh swelling and ecchymosis - SILT in superficial peroneal, deep peroneal, sural, saph nerve dist - Motor function intact in tibial, deep peroneal, superficial peroneal dist - 5/5 strength, full AROM/PROM - 2+ DP/PT pulses Dressings: Intact with mild serosanguineous drainage. History of Present Illness: Patient Active Problem List Diagnosis Facial infection Abdominal pain Closed displaced intertrochanteric fracture of right femur ([facility]) Closed fracture of right hip, initial encounter ([facility]) Hip fx ([facility]) Difficulty in walking Type 2 diabetes mellitus with circulatory disorder, with long-term current use of insulin ([facility]) Primary hypertension Class 1 obesity due to excess calories with serious comorbidity and body mass index (BMI) of 31.0 to 31.9 in adult BPH (benign prostatic hyperplasia) Myah-prosthetic fracture around prosthetic hip Past Medical History: Diagnosis Date Asthma Back pain Chronic cough from lisinopril Chronic pain disorder Colon cancer ([facility]) COPD (chronic obstructive pulmonary disease) ([facility]) Depression Diabetes mellitus type 2, controlled ([facility]) Fibromyalgia, primary Fracture of right hip, closed, initial encounter ([facility]) 01/17/2024 GERD (gastroesophageal reflux disease) Hyperlipidemia Hypertension Insulin-treated type 2 diabetes mellitus ([facility]) Joint pain Kidney stones Liver disease Low back pain Neck pain Obesity Osteoarthritis Visual impairment Past Surgical History: Procedure Laterality Date BACK SURGERY COLON SURGERY resection, 2018, [facility] DAVINCI REPAIR HERNIA VENTRAL N/A 10/27/2021 Performed by Ridge Cedillo MD at [facility] DENTAL SURGERY pt had all teeth removed HERNIA REPAIR x's 2 INSERTION INTRAMEDULLARY NAIL FEMUR Right 01/30/2024 Performed by Ang Figueroa MD at [facility] INSERTION INTRAMEDULLARY NAIL FEMUR-TFNA HIP FX Right 01/18/2024 Performed by Ang Figueroa MD at [facility] ORTHOPEDIC SURGERY 2008 foot, infected foot REMOVAL HARDWARE INTRAMEDULLARY NAIL/KATERYNA FEMUR Right 01/30/2024 Performed by Ang Figueroa MD at [facility] Ongoing Medical Management Needs: Patient risk factors for clinical complication: Pain Management, Wound Care, Fall Risk, Lab Monitor, BP, and Monitor Lung Sounds Additional Clinical and Specialty needs: Safety Alarms No active infections No active isolations Medication adjust/review: Current Facility-Administered Medications Medication Dose Route Frequency Provider Last Rate Last Admin acetaminophen (TYLENOL EXTRA STRENGTH) tablet 1,000 mg 1,000 mg oral Q8H Demond Frazier MD 1,000 mgat 02/01/24 0417 calcium citrate (CALCITRATE) tablet 400 mg 400 mg oral TID with meals Demond Frazier MD 400 mg at 02/01/24 0803 carvediloL (COREG) tablet 6.25 mg 6.25 mg oral BID with meals Demond Frazier MD 6.25 mg at 547 cholecalciferol (vitamin D3) tablet 2,000 Units 2,000 Units oral Daily Demond Frazier MD 2,000 Units at 02/01/24 0804 citalopram (CeleXA) tablet 20 mg 20 mg oral Daily Demond Frazier MD 20 mg at 02/01/24 0804 cyanocobalamin tablet 1,000 mcg 1,000 mcg oral Daily DAGO Medrano 1,000 mcg at 02/01/24 0804 cyclobenzaprine (FLEXERIL) tablet 10 mg 10 mg oral BID PRN Demond Frazier MD 10 mg at 02/01/24 0037 dextrose (GLUTOSE) 40 % gel 15 g 15 g oral PRN Demond Frazier MD dextrose 5 % (D5W) infusion 100 mL/hr intravenous Continuous PRN Demond Frazier MD dextrose 50 % in water (D50W) 50% solution 25 mL 25 mL intravenous PRN Demond Frazier MD enoxaparin (LOVENOX) syringe 40 mg 40 mg subcutaneous Daily Demond Frazier MD 40 mg at 02/01/24 0617 ergocalciferol (DRISDOL) capsule 50,000 Units 50,000 Units oral Weekly Demond Frazier MD 50,000 Units at 01/29/24 1315 folic acid (FOLVITE) tablet 1 mg 1 mg oral Daily DAGO Medrano 1 mg at 02/01/24 0804 gabapentin (NEURONTIN) tablet 800 mg 800 mg oral TID Demond Frazier MD 800 mg at 02/01/24 0617 glucagon HCL injection 1 mg 1 mg intramuscular PRN Demond Frazier MD hydrALAZINE (APRESOLINE) injection 10 mg 10 mg intravenous Q6H PRN Demond Frazier MD HYDROmorphone (PF) (DILAUDID) injection 1 mg 1 mg intravenous Q3H PRN Jalen Gan MD 1 mg at 02/01/24 0949 hyoscyamine sulfate (LEVSIN) tablet 125 mcg 125 mcg oral 4x Daily Demond Frazier MD 125 mcg at 02/01/24 0805 insulin glargine (LANTUS, SEMGLEE) injection pen 20 Units 20 Units subcutaneous Daily Demond Frazier MD 20 Units at 02/01/24 0815 insulin lispro (HumaLOG) injection 1-5 Units 1-5 Units subcutaneous TID with meals Demond Frazier MD 5 Units at 01/31/24 1823 insulin lispro (HumaLOG) injection 2-10 Units 2-10 Units subcutaneous TID with meals Demond Frazier MD 2 Units at 01/31/24 1139 insulin lispro (HumaLOG) injection 2-8 Units 2-8 Units subcutaneous Nightly Demond Frazier MD 4 Units at 01/31/24 2138 ipratropium-albuteroL (DUONEB) 0.5 mg-3 mg(2.5 mg base)/3 mL nebulizer solution 3 mL 3 mL nebulization Q6H PRN Demond Frazier MD losartan (COZAAR) tablet 50 mg 50 mg oral Daily Malou Bergeron MD 50 mg at 02/01/24 0037 magnesium oxide (MAGOX) tablet 400 mg 400 mg oral Daily Demond Frazier MD 400 mg at 02/01/24 0805 naloxone (NARCAN) injection 0.2 mg 0.2 mg intravenous PRN Ross Costello PA-C ondansetron (PF) (ZOFRAN) injection 4 mg 4 mg intravenous Q4H PRN Demond Frazier MD oxyCODONE (ROXICODONE) immediate release tablet 10 mg 10 mg oral Q4H PRN Demond Frazier MD 10 mg at02/01/24 0811 oxyCODONE (ROXICODONE) immediate release tablet 5 mg 5 mg oral Q4H PRN Demond Frazier MD pantoprazole (PROTONIX) EC tablet 40 mg 40 mg oral Daily Demond Frazier MD 40 mg at 02/01/24 0617 rifAXIMin (XIFAXAN) tablet 550 mg 550 mg oral Q12H SADA Demond Frazier MD 550 mg at 02/01/24 0805 sennosides-docusate sodium (SENOKOT-S) 8.6-50 mg 2 tablet 2 tablet oral Nightly Demond Frazier MD 2tablet at 01/30/24 2120 sodium chloride 0.9 % flush 3 mL 3 mL intravenous PRN Jalen Gan MD 3 mL at 01/31/24 1503 sucralfate (CARAFATE) tablet 1 g 1 g oral 4x Daily Demond Frazier MD 1 g at 02/01/24 0802 tamsulosin (FLOMAX) 24 hr capsule 0.4 mg 0.4 mg oral Nightly Demond Frazier MD 0.4 mg at 01/31/242125 traZODone (DESYREL) tablet 50 mg 50 mg oral Nightly Demond Frazier MD 50 mg at 02/01/24 0037 O2 Level SpO2: 90 % (02/01/24809) O2 Device: None (Room air) (02/01/24 08) O2 Flow Rate (L/min): 0 L/min (02/01/24 0810) Pain Assessment: 0-10 (02/01/24910) Pain Score: 10 (02/01/24 0949) Pain Type: Acute pain, Surgical pain (02/01/24810) Pain Location: Hip, Leg (02/01/24810) Pain Orientation: Right (02/01/24810) Pain Radiating Towards: to knee (02/01/24810) Pain Descriptors: Sharp, Shooting (02/01/24810) Pain Frequency: Constant/continuous (02/01/24810) Pain Onset: Ongoing (02/01/24810) Clinical Progression: Not changed (02/01/24810) Effect of Pain on Daily Activities: comfort (02/01/24810) Patient's Stated Pain Goal: No pain (02/01/24810) Pain Intervention(s): Medication (See MAR) (02/01/24810) Response to Interventions: Pain improved (02/01/24910) Wound Assessment: Skin: Skin Color: Josep, Pale (01/31/241936) Skin Temp: Warm, Dry (01/31/241936) Skin Integrity: Bruising, Swelling (Brusing at surgical site down to knee) (01/31/241936) risk: turn and position every 2 hours and pressure relief every 20 minutes while up in chair, active wound: yes Dialysis? 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 [2] BP 121/73 Pulse 75 Temp 36.5 C (97.7 F) (Oral) Resp 12 Ht 185.4 cm (6' 1 ) Wt 112.1 kg (247 lb 2.2 oz) SpO2 90% BMI 32.61 kg/m Lab Results Component Value Date SODIUM 131 (L) 01/31/2024 Lab Results Component Value Date K 4.1 01/31/2024 Lab Results Component Value Date CL 95 (L) 01/31/2024 Lab Results Component Value Date CO2 24 01/31/2024 Lab Results Component Value Date BUN 13 01/31/2024 Lab Results Component Value Date CREATININE 0.64 01/31/2024 Lab Results Component Value Date GLU 125 (H) 02/01/2024 Lab Results Component Value Date CALCIUM 9.0 01/31/2024 Lab Results Component Value Date ALBUMIN 4.0 01/23/2024 Lab Results Component Value Date ALKPHOS 47 01/23/2024 Lab Results Component Value Date ALT 9 01/23/2024 Lab Results Component Value Date AST 21 01/23/2024 Lab Results Component Value Date WBC 11.2 (H) 01/31/2024 Lab Results Component Value Date RBCCOUNT 3.26 (L) 01/31/2024 Lab Results Component Value Date HGB 9.4 (L) 01/31/2024 Lab Results Component Value Date HCT 27.1 (L) 01/31/2024 Lab Results Component Value Date PLT 230 01/31/2024 Lab Results Component Value Date MCV 83 01/31/2024 No results found for: PT Lab Results Component Value Date INR 1.4 (H) 01/29/2024 Nutritional Status: Height: Height: 185.4 cm (6' 1 ) (01/29/24 1112) Weight: Weight: 112.1 kg (247 lb 2.2 oz) () Diet: Dietary Orders (From admission, onward) Start Ordered 01/31/24 0741 Adult diet Regular Texture; Consistent Carb 210 grams (1800 kcal); Fluid Restriction 1500 mL Diet effective now Question Answer Comment Diet Type: Regular Texture Carbohydrate Modifiers: Consistent Carb 210 grams (1800 kcal) Fluid Restrictions: Fluid Restriction 1500 mL 01/31/24 0740 (Show up to 1 orders; newest on the left.) None Allergies: Insulin glargine Tube Feed: Elimination: Urine Amount: Large (02/01/24 0031) Bowel Incontinence: No (01/29/241999) Unmeasured Stool Occurrence: 0 (01/31/24 1600) Last BM Date: 01/26/24 (per pt) (01/31/241936) Level of function prior to event/condition leading to need for intensive rehabilitation therapy: Prior Function Lives With: Alone (01/31/24904) Receives Help From: Neighbor (01/31/24904) Level of Mobility: Independent with ADLs and functional transfers or gait (01/31/24904) Homemaking Assistance: Independent (Except for driving) (01/31/24904) Driving: Total assist (01/31/24903) Other: Prior to injury pt completely independent without devices. He had been at [facility] just prior to this adm and amb short distances on his own with rw per his report. (01/31/24904) Speech Therapy: No Speech/Language Impressions: Swallowing Impressions: Current Level of Function - Physical Therapy: Mobility/transfers: Supine to Sit: Max assist (x 2 with assist at the trunk and with LE's. Used rail and HOB up slightly.) (01/31/24904) Sit to Supine: (NT this session as pt up in chair with call light at end of session- RN aware) (01/31/24904) Transfers Sit to Stand: Min assist (of 2) (01/31/241405) Stand to Sit: Min assist (of 2) (01/31/241405) Bed to Chair: Min assist (x 2) (01/31/24904) Other: pt. required cues for technique and proper hand placement prior to sit/stand - fair carryover noted. Slow and guarded d/t pain level - no c/o dizziness noted. Pt. demo good eccentric control when completing stand -> sit. (01/31/241405) Ambulation: Gait Base of Support: Within Functional Limits (01/31/241404) Pattern: Decreased jesusita, Antalgic gait, R Decreased heel strike, L Decreased heel strike, R Decreased foot clearance, L Decreased foot clearance, Forward trunk, R Decreased stance time, R Flexed knee (01/31/241404) Gait Assistance: Min assist (of 2) (01/31/241405) Assistive Device: Rolling walker (01/31/241405) Gait Distance: Short distance of 4 feet. (01/31/241405) Limiting Factors to Gait: Fatigue, Weakness, Pain (01/31/241404) Other: Pt. slow and slightly unsteady - close chair follow for safety. Required cues for sequencingand safety with manuevering RW. Difficulty noted advancing BLE foward d/t increased pain level. (01/31/241405) Activity limitations: Activity Tolerance Endurance: Tolerates >30 minutes activity with rest breaks (01/31/241405) Other: rest breaks as needed (01/31/241405) Weight-bearing: Current Level of Function - Occupational Therapy: Hand Dominance: Hand Dominance: Right (01/31/24903) Where Assessed: Where Assessed: Edge of bed, Chair (01/31/24903) Equipment Used: Feeding: Eating Assistance: Setup (01/31/24903) Grooming: Grooming Assistance: Setup (01/31/24903) Oral Hygiene: Bathing:Bathing/Showering Assistance: Max assist (01/31/24903) Shower: Toilet/Commode Toilet/Commode Assistance: Max assist (01/31/24903) Dressing: UE Dressing Assistance: Min assist (01/31/24903) LE Dressing Assistance: Max assist (01/31/24903) Other:Other: Pt limited by weakness, fatigue, decreased balance and pain. Pt pushing posteriorly while sitting EOB and does not tolerate much activity due to pain. (01/31/24903) Home Environment: Home: Home Living Type of Home: Apartment (1st floor) (01/31/24904) Home Layout: One level (01/31/24904) Stairs to Enter: 1 (01/31/24904) Hand Rails: None (01/31/24904) Stairs in Home: 0 (01/31/24904) Bathroom Shower/Tub: Tub/shower unit (01/31/24904) Bathroom Toilet: Standard (01/31/24904) Bathroom Equipment: Hand-held shower, Non skid shower floor, Shower chair (01/31/24904) Home Equipment: Rolling walker, Cane, Agriculture Professor (01/31/24904) Other : No AE/DME needs prior to initial injury (01/31/24903) Lives with: Lives With: Alone (01/31/24904) Additional support system: Receives Help From: Andrew (01/31/24904) Therapy Plan: The patient requires the active and ongoing therapeutic interventions of multiple therapy disciplines. The patient has a need for intensive rehabilitation with the following disciplines: Physical Therapy and Occupational Therapy Expected PT frequency and duration: 5 days per week for 10 days Expected OT frequency and duration: 5 days per week for [address] frequency and duration: N/A Is the patient sufficiently stable, willing, and able to participate to tolerate an Intensive Rehabilitation Program that consists of at least 3 hours of therapy per day, 5 days per week? Yes Does the patient require supervision by a rehabilitation physician to assess and modify the course of treatment for medical and functional needs? yes Is the patient's condition and functional status expected to make measurable improvements and will the patient significantly benefit from the intensive rehabilitation program? yes Does the patient require an intensive and coordinated interdisciplinary approach to providing rehabilitation? yes Prognosis/expected level of improvement: Independent Expected discharge disposition: Home Expected length of stay: 2 weeks Anticipated post-discharge treatments: Outpatient Therapy Services, Follow-up with PCP, and Orthopedic Surgeon Associated attestation - Erick Sharp DO - 02/01/2024 10:20 AM EDT By signing this document, I have reviewed and concur with the findings and results of the preadmission screening. Erick Sharp DO * Jalen Gan MD - 02/01/2024 6:16 AM EDT Orthopedic Progress Note Attending: Dr. Figueroa Status post- Procedure(s): REMOVAL HARDWARE INTRAMEDULLARY NAIL/KATERYNA FEMUR (Right) - Wound Class: Clean Contaminated - IncisionClosure: Deep and Superficial Layers INSERTION INTRAMEDULLARY NAIL FEMUR (Right) - Wound Class: Clean Contaminated - Incision Closure: Deep and Superficial Layers SUBJECTIVE: Pain controlled resting comfortably in bed. Denies new numbness or tingling. Denies chest pain or shortness of breath. He was up with physical therapy yesterday to the chair. OBJECTIVE BP 110/78 Pulse 75 Temp 36.6 C (97.9 F) (Oral) Resp 17 Ht 185.4 cm (6' 1 ) Wt 112.1 kg (247 lb 2.2 oz) SpO2 98% BMI 32.61 kg/m O2 Device: None (Room air) General: A/O x3, resting comfortably in bed, cooperative MSK: Right lower extremity - right thigh swelling and ecchymosis - SILT in superficial peroneal, deep peroneal, sural, saph nerve dist - Motor function intact in tibial, deep peroneal, superficial peroneal dist - 5/5 strength, full AROM/PROM - 2+ DP/PT pulses Dressings: Intact with mild serosanguineous drainage. Data Review: Labs: Recent Results (from the past 48 hour(s)) Basic Metabolic Panel Collection Time: 01/30/24 7:02 AM Result Value Ref Range Sodium 135 134 - 146 mmol/L Potassium, Bld 4.6 3.5 - 5.0 mmol/L Chloride 97 (L) 98 - 109 mmol/L CO2 29 22 - 32 mmol/L Anion gap 9 5 - 15 mmol/L BUN 13 5 - 23 mg/dL Creatinine 0.65 0.60 - 1.30 mg/dL Glucose 159 (H) 65 - 99 mg/dL Calcium 9.6 8.5 - 10.5 mg/dL eGFR (CKD-EPI)non-race dependent >90 >59 ml/min/1.73sq.m CBC without diff Collection Time: 01/30/24 7:02 AM Result Value Ref Range White Blood Cells 7.8 4.0 - 11.0 X10E9/L RBC count 4.13 4.10 - 5.70 X10E12/L Hemoglobin 11.4 (L) 13.0 - 17.0 g/dL Hematocrit 34.6 (L) 39 - 49 % MCV 84 80 - 100 fL MCH 27.6 27 - 34 pg MCHC 33.0 32 - 36 g/dL RDW 15.9 (H) 11.5 - 15.0 % Platelets 180 150 - 450 X10E9/L MPV 10.2 7 - 12 fL Bedside Glucose *Place/Obtain serum glucose if >500(>600 MRH) per glucometer. Collection Time: 01/30/24 7:45 AM Result Value Ref Range Bedside glucose 161 (H) 65 - 99 mg/dL Bedside Glucose *Place/Obtain serum glucose if >500(>600 MRH) per glucometer. Collection Time: 01/30/24 6:16 PM Result Value Ref Range Bedside glucose 276 (H) 65 - 99 mg/dL Bedside Glucose *Place/Obtain serum glucose if >500(>600 MRH) per glucometer. Collection Time: 01/30/24 9:15 PM Result Value Ref Range Bedside glucose 279 (H) 65 - 99 mg/dL Basic Metabolic Panel Collection Time: 01/31/24 5:18 AM Result Value Ref Range Sodium 131 (L) 134 - 146 mmol/L Potassium, Bld 4.1 3.5 - 5.0 mmol/L Chloride 95 (L) 98 - 109 mmol/L CO2 24 22 - 32 mmol/L Anion gap 12 5 - 15 mmol/L BUN 13 5 - 23 mg/dL Creatinine 0.64 0.60 - 1.30 mg/dL Glucose 205 (H) 65 - 99 mg/dL Calcium 9.0 8.5 - 10.5 mg/dL eGFR (CKD-EPI)non-race dependent >90 >59 ml/min/1.73sq.m CBC without diff Collection Time: 01/31/24 5:18 AM Result Value Ref Range White Blood Cells 11.2 (H) 4.0 - 11.0 X10E9/L RBC count 3.26 (L) 4.10 - 5.70 X10E12/L Hemoglobin 9.4 (L) 13.0 - 17.0 g/dL Hematocrit 27.1 (L) 39 - 49 % MCV 83 80 - 100 fL MCH 28.8 27 - 34 pg MCHC 34.7 32 - 36 g/dL RDW 15.7 (H) 11.5 - 15.0 % Platelets 230 150 - 450 X10E9/L MPV 10.4 7 - 12 fL Osmolality Collection Time: 01/31/24 5:18 AM Result Value Ref Range Osmolality 279 (L) 280 - 300 mOsm/kg H2 Bedside Glucose *Place/Obtain serum glucose if >500(>600 MRH) per glucometer. Collection Time: 01/31/24 7:45 AM Result Value Ref Range Bedside glucose 198 (H) 65 - 99 mg/dL Bedside Glucose *Place/Obtain serum glucose if >500(>600 MRH) per glucometer. Collection Time: 01/31/24 11:35 AM Result Value Ref Range Bedside glucose 185 (H) 65 - 99 mg/dL Sodium, urine, random Collection Time: 01/31/24 3:58 PM Result Value Ref Range Sodium Urine Random 10 mmol/L Osmolality, urine Collection Time: 01/31/24 3:58 PM Result Value Ref Range Osmolality, Ur 521 300 - 1,300 mOsm/kg H2 Bedside Glucose *Place/Obtain serum glucose if >500(>600 MRH) per glucometer. Collection Time: 01/31/24 3:59 PM Result Value Ref Range Bedside glucose 145 (H) 65 - 99 mg/dL Bedside Glucose *Place/Obtain serum glucose if >500(>600 MRH) per glucometer. Collection Time: 01/31/24 9:32 PM Result Value Ref Range Bedside glucose 260 (H) 65 - 99 mg/dL Imaging: Postoperative right femur x-rays: My interpretation is intertrochanteric and sub trochanteric femurfractures in improved alignment with long cephalomedullary nail in place without evidence of acute complication. ASSESSMENT: This is a 53 y.o. male status post open reduction internal fixation of right intertrochanteric and subtrochanteric femur fractures with long cephalomedullary nail 01/30/2024 PLAN - pain control, ice, elevate - Lovenox for DVT prophylaxis we will require at least 30 days - antibiotics 24 hours of postoperative Ancef- complete - PT/OT - discharge planning likely inpatient rehab. Follow up with Dr. Figueroa in the office in 2 weeks Weight bearing: As tolerated right lower extremity Jalen Gan MD Orthopaedic Surgery Resident, PGY-4 Associated attestation - Ang Figueroa MD - 02/01/2024 8:09 AM EDT I, ANG FIGUEROA MD, agree with above and have reviewed/discussed the aforementioned clinical evaluation. I have discussed with the above care provider the above findings and agree with the plan and the above documentation is appropriate. Okay to discharge when appropriate arrangements made ANG FIGUEROA MD * Leahta Mcguire MD - 01/31/2024 7:40 AM EDT 01/31/2024 Patient Name: Ruth Smith : 1970 Code status: Problem List: Principal Problem: Closed fracture of right hip, initial encounter ([facility] [place]) Active Problems: Myah-prosthetic fracture around prosthetic hip SUBJECTIVE: Chief complaints: Left hip pain after fall follow-up HPI:53-year-old male with history of hypertension diabetes mellitus type 2 COPD and hep C cirrhosispresenting after fall and landing on right hip causing worsening pain. Initial x-rays did not show any fracture. CT of the hip showed periprosthetic right hip fracture and patient is status post surgery. Postop day 1 No chest pain or shortness a breath. No fever no chills. Pain controlled improved today Review of Systems - General ROS: negative for - chills or fever Respiratory ROS: no cough, shortness of breath, or wheezing Cardiovascular ROS: no chest pain or dyspnea on exertion OBJECTIVE: Exam: BP 123/80 Pulse 89 Temp 36.8 C (98.2 F) (Oral) Resp 25 Ht 185.4 cm (6' 1 ) Wt 114.3 kg (251 lb 15.8 oz) SpO2 98% BMI 33.25 kg/m Intake/Output Summary (Last 24 hours) at 01/31/2024 1229 Last data filed at 01/31/2024 1138 Gross per 24 hour Intake 685 ml Output 1850 ml Net -1165 ml PHYSICAL EXAM: GENERAL: Patient awake oriented x3 does not appear in any distress. CVS: S1-S2 heard no murmurs, rubs or gallops. RESPIRATORY: Bilateral air entry with no crackles or wheezing. ABDOMEN: Soft nontender nondistended bowel sounds present no CVA tenderness no guarding rigidity orrebound tenderness. EXTREMITIES: No pedal edema peripheral pulses palpable. Medications: Scheduled Medications: acetaminophen, 1,000 mg, oral, Q8H calcium citrate, 400 mg, oral, TID with meals carvediloL, 6.25 mg, oral, BID with meals cholecalciferol (vitamin D3), 2,000 Units, oral, Daily citalopram, 20 mg, oral, Daily cyanocobalamin, 1,000 mcg, oral, Daily enoxaparin (LOVENOX) injection, 40 mg, subcutaneous, Daily ergocalciferol, 50,000 Units, oral, Weekly folic acid, 1 mg, oral, Daily gabapentin, 800 mg, oral, TID hyoscyamine sulfate, 125 mcg, oral, 4x Daily insulin glargine, 20 Units, subcutaneous, Daily insulin lispro, 1-5 Units, subcutaneous, TID with meals insulin lispro, 2-10 Units, subcutaneous, TID with meals insulin lispro, 2-8 Units, subcutaneous, Nightly losartan, 50 mg, oral, Daily magnesium oxide, 400 mg, oral, Daily pantoprazole, 40 mg, oral, Daily rifAXIMin, 550 mg, oral, Q12H SADA sennosides-docusate sodium, 2 tablet, oral, Nightly sucralfate, 1 g, oral, 4x Daily tamsulosin, 0.4 mg, oral, Nightly traZODone, 50 mg, oral, Nightly Infusions: dextrose 5 % in water, 100 mL/hr PRN medications cyclobenzaprine, 10 mg, BID PRN dextrose, 15 g, PRN dextrose 5 % in water, 100 mL/hr, Continuous PRN dextrose 50 % in water (D50W), 25 mL, PRN glucagon (human recombinant), 1 mg, PRN hydrALAZINE, 10 mg, Q6H PRN HYDROmorphone, 1 mg, Q3H PRN ipratropium-albuteroL, 3 mL, Q6H PRN naloxone, 0.2 mg, PRN ondansetron, 4 mg, Q4H PRN oxyCODONE, 10 mg, Q4H PRN oxyCODONE, 5 mg, Q4H PRN sodium chloride, 3 mL, PRN Labs: Recent Results (from the past 48 hour(s)) Bedside Glucose *Place/Obtain serum glucose if >500(>600 MRH) per glucometer. Collection Time: 01/29/24 4:31 PM Result Value Ref Range Bedside glucose 185 (H) 65 - 99 mg/dL Urinalysis Collection Time: 01/29/24 9:24 PM Result Value Ref Range Color YELLOW YELLOW^YELLOW Turbidity CLEAR CLEAR^CLEAR Specific gravity 1.018 1.003 - 1.035 Nitrite Negative Negative^Negative Ph urine 6.5 5.0 - 8.5 Leukocyte esterase Negative Negative^Negative Protein Negative Negative^Negative mg/dL Glucose, Ur Negative Negative^Negative mg/dL Ketones urine Negative Negative^Negative mg/dL Urobilinogen 4 (H) <1.1 eu/dL Bilirubin, urine Negative Negative^Negative Hemoglobin Negative Negative^Negative Bedside Glucose *Place/Obtain serum glucose if >500(>600 MRH) per glucometer. Collection Time: 01/29/24 9:24 PM Result Value Ref Range Bedside glucose 170 (H) 65 - 99 mg/dL Basic Metabolic Panel Collection Time: 01/30/24 7:02 AM Result Value Ref Range Sodium 135 134 - 146 mmol/L Potassium, Bld 4.6 3.5 - 5.0 mmol/L Chloride 97 (L) 98 - 109 mmol/L CO2 29 22 - 32 mmol/L Anion gap 9 5 - 15 mmol/L BUN 13 5 - 23 mg/dL Creatinine 0.65 0.60 - 1.30 mg/dL Glucose 159 (H) 65 - 99 mg/dL Calcium 9.6 8.5 - 10.5 mg/dL eGFR (CKD-EPI)non-race dependent >90 >59 ml/min/1.73sq.m CBC without diff Collection Time: 01/30/24 7:02 AM Result Value Ref Range White Blood Cells 7.8 4.0 - 11.0 X10E9/L RBC count 4.13 4.10 - 5.70 X10E12/L Hemoglobin 11.4 (L) 13.0 - 17.0 g/dL Hematocrit 34.6 (L) 39 - 49 % MCV 84 80 - 100 fL MCH 27.6 27 - 34 pg MCHC 33.0 32 - 36 g/dL RDW 15.9 (H) 11.5 - 15.0 % Platelets 180 150 - 450 X10E9/L MPV 10.2 7 - 12 fL Bedside Glucose *Place/Obtain serum glucose if >500(>600 MRH) per glucometer. Collection Time: 01/30/24 7:45 AM Result Value Ref Range Bedside glucose 161 (H) 65 - 99 mg/dL Bedside Glucose *Place/Obtain serum glucose if >500(>600 MRH) per glucometer. Collection Time: 01/30/24 6:16 PM Result Value Ref Range Bedside glucose 276 (H) 65 - 99 mg/dL Bedside Glucose *Place/Obtain serum glucose if >500(>600 MRH) per glucometer. Collection Time: 01/30/24 9:15 PM Result Value Ref Range Bedside glucose 279 (H) 65 - 99 mg/dL Basic Metabolic Panel Collection Time: 01/31/24 5:18 AM Result Value Ref Range Sodium 131 (L) 134 - 146 mmol/L Potassium, Bld 4.1 3.5 - 5.0 mmol/L Chloride 95 (L) 98 - 109 mmol/L CO2 24 22 - 32 mmol/L Anion gap 12 5 - 15 mmol/L BUN 13 5 - 23 mg/dL Creatinine 0.64 0.60 - 1.30 mg/dL Glucose 205 (H) 65 - 99 mg/dL Calcium 9.0 8.5 - 10.5 mg/dL eGFR (CKD-EPI)non-race dependent >90 >59 ml/min/1.73sq.m CBC without diff Collection Time: 01/31/24 5:18 AM Result Value Ref Range White Blood Cells 11.2 (H) 4.0 - 11.0 X10E9/L RBC count 3.26 (L) 4.10 - 5.70 X10E12/L Hemoglobin 9.4 (L) 13.0 - 17.0 g/dL Hematocrit 27.1 (L) 39 - 49 % MCV 83 80 - 100 fL MCH 28.8 27 - 34 pg MCHC 34.7 32 - 36 g/dL RDW 15.7 (H) 11.5 - 15.0 % Platelets 230 150 - 450 X10E9/L MPV 10.4 7 - 12 fL Osmolality Collection Time: 01/31/24 5:18 AM Result Value Ref Range Osmolality 279 (L) 280 - 300 mOsm/kg H2 Bedside Glucose *Place/Obtain serum glucose if >500(>600 MRH) per glucometer. Collection Time: 01/31/24 7:45 AM Result Value Ref Range Bedside glucose 198 (H) 65 - 99 mg/dL Bedside Glucose *Place/Obtain serum glucose if >500(>600 MRH) per glucometer. Collection Time: 01/31/24 11:35 AM Result Value Ref Range Bedside glucose 185 (H) 65 - 99 mg/dL Assessment and Plan: 53-year-old male 1. Right intertrochanteric hip fracture with new periprosthetic subtrochanteric fracture after a 2nd fall patient status post intramedullary nail right intertrochanteric/subtrochanteric hip fracture and removal of hardware right femur postop day 1. Pain better controlled continue to monitor Management will be as per Orthopedics 2. Mild hyponatremia hydrochlorothiazide on hold . Will place on some fluid restriction and check urine electrolytes. Monitor closely. 3. Acute blood loss anemia from periprosthetic fracture and expected from blood loss from surgery. Monitor hemoglobin closely. 4. History of COPD without exacerbation 5. Diabetes mellitus type 2 on Lantus and insulin sliding scale monitor glucose 6. Severe obesity BMI of 33 counseled patient 7. History hypertension Continue Coreg and losartan monitor blood pressure closely 8. History of chronic pain 9. History of BPH 10. Enoxaparin for DVT prophylaxis * Jalen Gan MD - 01/31/2024 6:21 AM EDT Orthopedic Progress Note Attending: Dr. Figueroa Status post- Procedure(s): REMOVAL HARDWARE INTRAMEDULLARY NAIL/KATERYNA FEMUR (Right) - Wound Class: Clean Contaminated - IncisionClosure: Deep and Superficial Layers INSERTION INTRAMEDULLARY NAIL FEMUR (Right) - Wound Class: Clean Contaminated - Incision Closure: Deep and Superficial Layers SUBJECTIVE: Pain controlled resting comfortably in bed. Denies new numbness or tingling. Denies chest pain or shortness of breath. He has not been out of bed with physical therapy. OBJECTIVE BP 123/74 Pulse 80 Temp 36.8 C (98.2 F) (Oral) Resp 17 Ht 185.4 cm (6' 1 ) SpO2 97% BMI33.25 kg/m O2 Device: None (Room air) General: A/O x3, resting comfortably in bed, cooperative MSK: Right lower extremity - right thigh swelling and ecchymosis - SILT in superficial peroneal, deep peroneal, sural, saph nerve dist - Motor function intact in tibial, deep peroneal, superficial peroneal dist - 5/5 strength, full AROM/PROM - 2+ DP/PT pulses Dressings: Intact with mild serosanguineous drainage. Data Review: Labs: Recent Results (from the past 48 hour(s)) Type and screen(includes indirect yolanda) Collection Time: 01/29/24 10:30 AM Result Value Ref Range ABO O RH Positive Antibody Screen Negative CBC auto differential Collection Time: 01/29/24 10:45 AM Result Value Ref Range White Blood Cells 9.5 4.0 - 11.0 X10E9/L RBC count 4.11 4.10 - 5.70 X10E12/L Hemoglobin 11.9 (L) 13.0 - 17.0 g/dL Hematocrit 33.6 (L) 39 - 49 % MCV 82 80 - 100 fL MCH 29.0 27 - 34 pg MCHC 35.5 32 - 36 g/dL RDW 15.6 (H) 11.5 - 15.0 % Platelets 192 150 - 450 X10E9/L MPV 10.1 7 - 12 fL % neutrophils 78.0 % % lymphocytes 14.6 % % monocytes 6.6 % % eosinophils 0.2 % % Basophils 0.6 % Neutrophils Absolute (A) 7.4 (H) 1.5 - 6.6 X10E9/L Lymphocytes Absolute 1.4 1.0 - 3.5 X10E9/L Monocytes Absolute 0.6 0 - 0.9 X10E9/L Eosinophils Absolute 0.0 0.0 - 0.4 X10E9/L Basophils Absolute 0.1 0.0 - 0.2 X10E9/L Basic Metabolic Panel Collection Time: 01/29/24 10:45 AM Result Value Ref Range Sodium 131 (L) 134 - 146 mmol/L Potassium, Bld 3.7 3.5 - 5.0 mmol/L Chloride 95 (L) 98 - 109 mmol/L CO2 22 22 - 32 mmol/L Anion gap 14 5 - 15 mmol/L BUN 9 5 - 23 mg/dL Creatinine 0.54 (L) 0.60 - 1.30 mg/dL Glucose 193 (H) 65 - 99 mg/dL Calcium 9.5 8.5 - 10.5 mg/dL eGFR (CKD-EPI)non-race dependent >90 >59 ml/min/1.73sq.m Protime & INR Collection Time: 01/29/24 10:45 AM Result Value Ref Range Protime 15.6 (H) 9.8 - 13.2 sec Inr 1.4 (H) 0.8 - 1.1 APTT Collection Time: 01/29/24 10:45 AM Result Value Ref Range aPTT 29 26 - 37 sec Vitamin B12 Collection Time: 01/29/24 10:45 AM Result Value Ref Range Vitamin B-12 307 180 - 914 pg/mL Iron and TIBC Collection Time: 01/29/24 10:45 AM Result Value Ref Range Iron 17 (L) 50 - 212 ug/dL Tibc-calc only do not order 357 250 - 425 ug/dL Iron Saturation 5 (L) 20 - 50 % SATURATION Ferritin Collection Time: 01/29/24 10:45 AM Result Value Ref Range Ferritin 220 24 - 336 ng/mL Folate Collection Time: 01/29/24 10:45 AM Result Value Ref Range Folate 8.4 >5.8 ng/mL Prealbumin Collection Time: 01/29/24 10:45 AM Result Value Ref Range Prealbumin 9 (L) 18 - 45 mg/dL Reticulocytes Collection Time: 01/29/24 10:45 AM Result Value Ref Range Reticulocyte 3.9 (H) 0.4 - 2.2 % Vitamin D 25 hydroxy Collection Time: 01/29/24 10:45 AM Result Value Ref Range Vit D, 25-Hydroxy 31.7 30 - 100 ng/mL Bedside Glucose *Place/Obtain serum glucose if >500(>600 MRH) per glucometer. Collection Time: 01/29/24 12:13 PM Result Value Ref Range Bedside glucose 204 (H) 65 - 99 mg/dL Bedside Glucose *Place/Obtain serum glucose if >500(>600 MRH) per glucometer. Collection Time: 01/29/24 4:31 PM Result Value Ref Range Bedside glucose 185 (H) 65 - 99 mg/dL Urinalysis Collection Time: 01/29/24 9:24 PM Result Value Ref Range Color YELLOW YELLOW^YELLOW Turbidity CLEAR CLEAR^CLEAR Specific gravity 1.018 1.003 - 1.035 Nitrite Negative Negative^Negative Ph urine 6.5 5.0 - 8.5 Leukocyte esterase Negative Negative^Negative Protein Negative Negative^Negative mg/dL Glucose, Ur Negative Negative^Negative mg/dL Ketones urine Negative Negative^Negative mg/dL Urobilinogen 4 (H) <1.1 eu/dL Bilirubin, urine Negative Negative^Negative Hemoglobin Negative Negative^Negative Bedside Glucose *Place/Obtain serum glucose if >500(>600 MRH) per glucometer. Collection Time: 01/29/24 9:24 PM Result Value Ref Range Bedside glucose 170 (H) 65 - 99 mg/dL Basic Metabolic Panel Collection Time: 01/30/24 7:02 AM Result Value Ref Range Sodium 135 134 - 146 mmol/L Potassium, Bld 4.6 3.5 - 5.0 mmol/L Chloride 97 (L) 98 - 109 mmol/L CO2 29 22 - 32 mmol/L Anion gap 9 5 - 15 mmol/L BUN 13 5 - 23 mg/dL Creatinine 0.65 0.60 - 1.30 mg/dL Glucose 159 (H) 65 - 99 mg/dL Calcium 9.6 8.5 - 10.5 mg/dL eGFR (CKD-EPI)non-race dependent >90 >59 ml/min/1.73sq.m CBC without diff Collection Time: 01/30/24 7:02 AM Result Value Ref Range White Blood Cells 7.8 4.0 - 11.0 X10E9/L RBC count 4.13 4.10 - 5.70 X10E12/L Hemoglobin 11.4 (L) 13.0 - 17.0 g/dL Hematocrit 34.6 (L) 39 - 49 % MCV 84 80 - 100 fL MCH 27.6 27 - 34 pg MCHC 33.0 32 - 36 g/dL RDW 15.9 (H) 11.5 - 15.0 % Platelets 180 150 - 450 X10E9/L MPV 10.2 7 - 12 fL Bedside Glucose *Place/Obtain serum glucose if >500(>600 MRH) per glucometer. Collection Time: 01/30/24 7:45 AM Result Value Ref Range Bedside glucose 161 (H) 65 - 99 mg/dL Bedside Glucose *Place/Obtain serum glucose if >500(>600 MRH) per glucometer. Collection Time: 01/30/24 6:16 PM Result Value Ref Range Bedside glucose 276 (H) 65 - 99 mg/dL Bedside Glucose *Place/Obtain serum glucose if >500(>600 MRH) per glucometer. Collection Time: 01/30/24 9:15 PM Result Value Ref Range Bedside glucose 279 (H) 65 - 99 mg/dL Imaging: Postoperative right femur x-rays: My interpretation is intertrochanteric sub trochanteric femur fractures in improved alignment with long cephalomedullary nail in place without evidence of acute complication. ASSESSMENT: This is a 53 y.o. male status post open reduction internal fixation of right intertrochanteric and subtrochanteric femur fractures with long cephalomedullary nail 01/30/2024 PLAN - oral pain control, ice, elevate - Lovenox for DVT prophylaxis we will require at least 30 days - antibiotics 24 hours of postoperative Ancef - PT/OT - discharge planning patient will likely require placement Weight bearing: As tolerated right lower extremity Jalen Gan MD Orthopaedic Surgery Resident, PGY-4 Associated attestation - Ang Figueroa MD - 01/31/2024 12:36 PM EDT ATTESTATION: I, ANG FIGUEROA MD, had a [id number] encounter with this patient and completed sharma portions of theexam and history performed by above provider. We discussed the assessment and plan of care. We havediscussed the above findings and I agree with the plan and the above documentation is appropriate. Case reviewed with the patient. Doing well clinically. We will continue to monitor and see how he does with therapy. Rehab when arranged. ANG FIGUEROA MD * Leatha Mcguire MD - 01/30/2024 10:23 AM EDT 01/30/2024 Patient Name: Ruth Smith : 1970 Code status: Problem List: Principal Problem: Closed fracture of right hip, initial encounter ([facility]) Active Problems: Myah-prosthetic fracture around prosthetic hip SUBJECTIVE: Chief complaints: Left hip pain after fall follow-up HPI: 53-year-old male with history of hypertension diabetes mellitus type 2 COPD and hep C cirrhosis presenting after fall and landing on right hip causing worsening pain. Initial x-rays did not showany fracture. CT of the hip showed periprosthetic right hip fracture and patient is status post surgery. Postop day 0 seen in PACU. Patient was complaining of some ongoing pain in the right hip and nurses state anesthesia and ortho aware and patient got some Dilaudid. Patient denies any other complaints Review of Systems - General ROS: negative for - chills or fever Respiratory ROS: no cough, shortness of breath, or wheezing Cardiovascular ROS: no chest pain or dyspnea on exertion OBJECTIVE: Exam: BP 143/74 Pulse 87 Temp 36 C (96.8 F) (Temporal) Resp 24 Ht 185.4 cm (6' 1 ) SpO2 98% BMI 33.25 kg/m No intake or output data in the 24 hours ending 01/30/24 1023 PHYSICAL EXAM: GENERAL: Patient awake oriented x3 does not appear in any distress. CVS: S1-S2 heard no murmurs, rubs or gallops. RESPIRATORY: Bilateral air entry with no crackles or wheezing. ABDOMEN: Soft nontender nondistended bowel sounds present no CVA tenderness no guarding rigidity orrebound tenderness. EXTREMITIES: No pedal edema peripheral pulses palpable. Medications: Scheduled Medications: [Transfer Hold] acetaminophen, 1,000 mg, oral, Q8H [Transfer Hold] calcium citrate, 400 mg, oral, TID with meals [Transfer Hold] carvediloL, 6.25 mg, oral, BID with meals ceFAZolin (ANCEF) IV, 2,000 mg, intravenous, Once [Transfer Hold] cholecalciferol (vitamin D3), 2,000 Units, oral, Daily [Transfer Hold] citalopram, 20 mg, oral, Daily [Transfer Hold] cyanocobalamin, 1,000 mcg, oral, Daily [Transfer Hold] enoxaparin (LOVENOX) injection, 40 mg, subcutaneous, Daily [Transfer Hold] ergocalciferol, 50,000 Units, oral, Weekly [Transfer Hold] folic acid, 1 mg, oral, Daily [Transfer Hold] gabapentin, 800 mg, oral, TID [Transfer Hold] hyoscyamine sulfate, 125 mcg, oral, 4x Daily [Transfer Hold] insulin glargine, 20 Units, subcutaneous, Daily [Transfer Hold] insulin lispro, 1-5 Units, subcutaneous, TID with meals [Transfer Hold] insulin lispro, 2-10 Units, subcutaneous, TID with meals [Transfer Hold] insulin lispro, 2-8 Units, subcutaneous, Nightly [Transfer Hold] losartan, 50 mg, oral, Daily [Transfer Hold] magnesium oxide, 400 mg, oral, Daily [Transfer Hold] pantoprazole, 40 mg, oral, Daily [Transfer Hold] rifAXIMin, 550 mg, oral, Q12H SADA [Transfer Hold] sennosides-docusate sodium, 2 tablet, oral, Nightly sodium chloride, 3 mL, intravenous, Q12H SADA [Transfer Hold] sucralfate, 1 g, oral, 4x Daily [Transfer Hold] tamsulosin, 0.4 mg, oral, Nightly [Transfer Hold] traZODone, 50 mg, oral, Nightly vancomycin, 1,500 mg, intravenous, Once Infusions: [Transfer Hold] dextrose 5 % in water, 100 mL/hr lactated ringer's, 125 mL/hr [Transfer Hold] sodium chloride 0.9 %, 50 mL/hr, Last Rate: 50 mL/hr (01/29/242141) PRN medications [Transfer Hold] cyclobenzaprine, 10 mg, BID PRN [Transfer Hold] dextrose, 15 g, PRN [Transfer Hold] dextrose 5 % in water, 100 mL/hr, Continuous PRN [Transfer Hold] dextrose 50 % in water (D50W), 25 mL, PRN [Transfer Hold] glucagon (human recombinant), 1 mg, PRN [Transfer Hold] hydrALAZINE, 10 mg, Q6H PRN [Transfer Hold] HYDROmorphone, 1 mg, Q4H PRN [Transfer Hold] ipratropium-albuteroL, 3 mL, Q6H PRN lidocaine PF, 0.1 mL, PRN [Transfer Hold] ondansetron, 4 mg, Q4H PRN [Transfer Hold] oxyCODONE, 10 mg, Q4H PRN [Transfer Hold] oxyCODONE, 5 mg, Q4H PRN [Transfer Hold] sodium chloride, 3 mL, PRN sodium chloride, 3 mL, PRN sodium chloride (bottle), , PRN Labs: Recent Results (from the past 48 hour(s)) Bedside Glucose *Place/Obtain serum glucose if >500(>600 MRH) per glucometer. Collection Time: 01/28/24 11:50 AM Result Value Ref Range Bedside glucose 244 (H) 65 - 99 mg/dL Bedside Glucose *Place/Obtain serum glucose if >500(>600 MRH) per glucometer. Collection Time: 01/28/24 8:25 PM Result Value Ref Range Bedside glucose 194 (H) 65 - 99 mg/dL Bedside Glucose *Place/Obtain serum glucose if >500(>600 MRH) per glucometer. Collection Time: 01/29/24 5:39 AM Result Value Ref Range Bedside glucose 199 (H) 65 - 99 mg/dL Basic Metabolic Panel Collection Time: 01/29/24 5:40 AM Result Value Ref Range Sodium 131 (L) 134 - 146 mmol/L Potassium, Bld 3.7 3.5 - 5.0 mmol/L Chloride 95 (L) 98 - 109 mmol/L CO2 24 22 - 32 mmol/L Anion gap 12 5 - 15 mmol/L BUN 9 5 - 23 mg/dL Creatinine 0.51 (L) 0.60 - 1.30 mg/dL Glucose 212 (H) 65 - 99 mg/dL Calcium 9.4 8.5 - 10.5 mg/dL eGFR (CKD-EPI)non-race dependent >90 >59 ml/min/1.73sq.m CBC without diff Collection Time: 01/29/24 5:40 AM Result Value Ref Range White Blood Cells 10.2 4.0 - 11.0 X10E9/L RBC count 3.97 (L) 4.10 - 5.70 X10E12/L Hemoglobin 11.4 (L) 13.0 - 17.0 g/dL Hematocrit 33.1 (L) 39 - 49 % MCV 83 80 - 100 fL MCH 28.7 27 - 34 pg MCHC 34.4 32 - 36 g/dL RDW 15.9 (H) 11.5 - 15.0 % Platelets 185 150 - 450 X10E9/L MPV 10.8 7 - 12 fL Type and screen(includes indirect yolanda) Collection Time: 01/29/24 10:30 AM Result Value Ref Range ABO O RH Positive Antibody Screen Negative CBC auto differential Collection Time: 01/29/24 10:45 AM Result Value Ref Range White Blood Cells 9.5 4.0 - 11.0 X10E9/L RBC count 4.11 4.10 - 5.70 X10E12/L Hemoglobin 11.9 (L) 13.0 - 17.0 g/dL Hematocrit 33.6 (L) 39 - 49 % MCV 82 80 - 100 fL MCH 29.0 27 - 34 pg MCHC 35.5 32 - 36 g/dL RDW 15.6 (H) 11.5 - 15.0 % Platelets 192 150 - 450 X10E9/L MPV 10.1 7 - 12 fL % neutrophils 78.0 % % lymphocytes 14.6 % % monocytes 6.6 % % eosinophils 0.2 % % Basophils 0.6 % Neutrophils Absolute (A) 7.4 (H) 1.5 - 6.6 X10E9/L Lymphocytes Absolute 1.4 1.0 - 3.5 X10E9/L Monocytes Absolute 0.6 0 - 0.9 X10E9/L Eosinophils Absolute 0.0 0.0 - 0.4 X10E9/L Basophils Absolute 0.1 0.0 - 0.2 X10E9/L Basic Metabolic Panel Collection Time: 01/29/24 10:45 AM Result Value Ref Range Sodium 131 (L) 134 - 146 mmol/L Potassium, Bld 3.7 3.5 - 5.0 mmol/L Chloride 95 (L) 98 - 109 mmol/L CO2 22 22 - 32 mmol/L Anion gap 14 5 - 15 mmol/L BUN 9 5 - 23 mg/dL Creatinine 0.54 (L) 0.60 - 1.30 mg/dL Glucose 193 (H) 65 - 99 mg/dL Calcium 9.5 8.5 - 10.5 mg/dL eGFR (CKD-EPI)non-race dependent >90 >59 ml/min/1.73sq.m Protime & INR Collection Time: 01/29/24 10:45 AM Result Value Ref Range Protime 15.6 (H) 9.8 - 13.2 sec Inr 1.4 (H) 0.8 - 1.1 APTT Collection Time: 01/29/24 10:45 AM Result Value Ref Range aPTT 29 26 - 37 sec Vitamin B12 Collection Time: 01/29/24 10:45 AM Result Value Ref Range Vitamin B-12 307 180 - 914 pg/mL Iron and TIBC Collection Time: 01/29/24 10:45 AM Result Value Ref Range Iron 17 (L) 50 - 212 ug/dL Tibc-calc only do not order 357 250 - 425 ug/dL Iron Saturation 5 (L) 20 - 50 % SATURATION Ferritin Collection Time: 01/29/24 10:45 AM Result Value Ref Range Ferritin 220 24 - 336 ng/mL Folate Collection Time: 01/29/24 10:45 AM Result Value Ref Range Folate 8.4 >5.8 ng/mL Prealbumin Collection Time: 01/29/24 10:45 AM Result Value Ref Range Prealbumin 9 (L) 18 - 45 mg/dL Reticulocytes Collection Time: 01/29/24 10:45 AM Result Value Ref Range Reticulocyte 3.9 (H) 0.4 - 2.2 % Vitamin D 25 hydroxy Collection Time: 01/29/24 10:45 AM Result Value Ref Range Vit D, 25-Hydroxy 31.7 30 - 100 ng/mL Bedside Glucose *Place/Obtain serum glucose if >500(>600 MRH) per glucometer. Collection Time: 01/29/24 12:13 PM Result Value Ref Range Bedside glucose 204 (H) 65 - 99 mg/dL Bedside Glucose *Place/Obtain serum glucose if >500(>600 MRH) per glucometer. Collection Time: 01/29/24 4:31 PM Result Value Ref Range Bedside glucose 185 (H) 65 - 99 mg/dL Urinalysis Collection Time: 01/29/24 9:24 PM Result Value Ref Range Color YELLOW YELLOW^YELLOW Turbidity CLEAR CLEAR^CLEAR Specific gravity 1.018 1.003 - 1.035 Nitrite Negative Negative^Negative Ph urine 6.5 5.0 - 8.5 Leukocyte esterase Negative Negative^Negative Protein Negative Negative^Negative mg/dL Glucose, Ur Negative Negative^Negative mg/dL Ketones urine Negative Negative^Negative mg/dL Urobilinogen 4 (H) <1.1 eu/dL Bilirubin, urine Negative Negative^Negative Hemoglobin Negative Negative^Negative Bedside Glucose *Place/Obtain serum glucose if >500(>600 MRH) per glucometer. Collection Time: 01/29/24 9:24 PM Result Value Ref Range Bedside glucose 170 (H) 65 - 99 mg/dL Basic Metabolic Panel Collection Time: 01/30/24 7:02 AM Result Value Ref Range Sodium 135 134 - 146 mmol/L Potassium, Bld 4.6 3.5 - 5.0 mmol/L Chloride 97 (L) 98 - 109 mmol/L CO2 29 22 - 32 mmol/L Anion gap 9 5 - 15 mmol/L BUN 13 5 - 23 mg/dL Creatinine 0.65 0.60 - 1.30 mg/dL Glucose 159 (H) 65 - 99 mg/dL Calcium 9.6 8.5 - 10.5 mg/dL eGFR (CKD-EPI)non-race dependent >90 >59 ml/min/1.73sq.m CBC without diff Collection Time: 01/30/24 7:02 AM Result Value Ref Range White Blood Cells 7.8 4.0 - 11.0 X10E9/L RBC count 4.13 4.10 - 5.70 X10E12/L Hemoglobin 11.4 (L) 13.0 - 17.0 g/dL Hematocrit 34.6 (L) 39 - 49 % MCV 84 80 - 100 fL MCH 27.6 27 - 34 pg MCHC 33.0 32 - 36 g/dL RDW 15.9 (H) 11.5 - 15.0 % Platelets 180 150 - 450 X10E9/L MPV 10.2 7 - 12 fL Bedside Glucose *Place/Obtain serum glucose if >500(>600 MRH) per glucometer. Collection Time: 01/30/24 7:45 AM Result Value Ref Range Bedside glucose 161 (H) 65 - 99 mg/dL Assessment and Plan: 53-year-old male 1. Right intertrochanteric hip fracture with new periprosthetic subtrochanteric fracture after a 2nd fall patient status post intramedullary nail right intertrochanteric/subtrochanteric hip fracture and removal of hardware right femur postop day 0 Management will be as per Orthopedics 2. Mild hyponatremia hydrochlorothiazide and hydrochlorothiazide on hold currently resolved 3. History of COPD without exacerbation 4. Diabetes mellitus type 2 on Lantus and insulin sliding scale monitor glucose 5. Severe obesity BMI of 33 counseled patient 6. Continue Coreg and losartan monitor blood pressure closely 7. History of chronic pain 8. History of BPH 9. Enoxaparin for DVT prophylaxis Monitor patient closely. [facility] [place]* Discharge Planning Note - Sisi Morse RN - 02/03/2024 11:03 AM EDT DISCHARGE PLANNING NOTE Case discussed in daily transition rounds and chart reviewed by CN. Barriers to discharge include none. Discharge Plan remains: Patient to transport to [facility] at 2pm today. CRF sent. CN will continue to follow and is available should any further needs arise. - Sisi Morse RN 02/03/24 11:03 AM [facility] [place]06[facility] Miscellaneous Notes* Discharge Planning Note - Sisi Morse RN - 02/03/2024 11:03 AM EDT DISCHARGE PLANNING NOTE Case discussed in daily transition rounds and chart reviewed by CN. Barriers to discharge include none. Discharge Plan remains: Patient to transport to [facility] at 2pm today. CRF sent. CN will continue to follow and is available should any further needs arise. - Sisi Morse RN 02/03/24 11:03 AM * PT/OT/THERMAL SURFACING MACHINE OPERATOR - NALLELY Meneses - 02/03/2024 9:51 AM EDT Occupational Therapy Treatment Discharge Recommendations OT Recommendations : Inpatient Rehab Inpatient Rehab Criteria: All inpatient rehab criteria expected to be met 6 Clicks: Daily Activity Putting on and taking off regular lower body clothing?: A lot Bathing (including washing, rinsing, drying)?: A lot Toileting, which includes using toilet, bedpan or urinal?: A little Putting on and taking off regular upper body clothing?: A little Taking care of personal grooming such as brushing teeth?: None Eating meals?: None Scoring Daily Activity Raw Score: 18 CMS G Code Modifier: CK OT Treatment/Interventions: ADL retraining, Functional transfer training, LE strengthening/ROM, UE strengthening/ROM, Endurance training, Patient/family training, Equipment eval/education, Balance, Bed mobility, Compensatory technique education, Functional activities OT Frequency: Twice a Day OT Duration: Until discharge Assessment Patient Assessment Therapy Problem List: Decreased balance, Decreased endurance, Decreased mobility, Decreased safe judgement during ADL, Decreased LE ROM, Decreased LE strength Patient Response to Treatment: Slow progress, decreased activity tolerance Mood/Affect: Appropriate for circumstances Rehab Prognosis: Good, With continued OT status post acute discharge Visit RN Communication: Yes Medical Record Reviewed: Yes OT Type of Visit: Treatment Precautions Activity: Early mobility pass; okay to see per RN Equipment: Gait belt, RW Weight Bearing Status: WBAT RLE Telemetry/Paper Machine Back Tender: Yes Other: fall risk Pain Assessment Pain Assessment: 0-10 Pain Score: 8 Pain Type: Surgical pain Pain Location: Hip, Leg Pain Orientation: Right Pain Intervention(s): Repositioned, Ambulation/increased activity Response to Interventions: Quiet, No grimacing ADL / IADL Other: Pt declined ADLs this date. Home Management - IADL Other: Pt declined ADLs this date. Hearing / Speech / Vision Hearing: Within Functional Limits Speech: Within Functional Limits Current Vision: Wears glasses only for reading Cognition Orientation Level: Oriented X4 Bed Mobility Other: Pt in chair upon arrival and at end of session with call light within reach, RN aware. Transfers Sit to Stand: Contact guard assist Stand to Sit: Contact guard assist Other: Cues for hand placement. CGA for safety. Cues for slow-controlled descent. Gait Gait Assistance: Min assist Assistive Device: Rolling walker Gait Distance: 65' Limiting Factors to Gait: Fatigue, Weakness Other: Pt completed functional mobility with min A. Increased time/effort required. No LOB noted. Balance Sitting Balance: Static: Good Sitting Balance: Dynamic: Fair (+) Standing Balance: Static: Fair Standing Balance: Dynamic: Fair (-) Other: BUE support on RW with transfers/functional mobility. Slow/steady steps. No LOB noted. Activity Tolerance Endurance: Tolerates 30 minutes activity WITHOUT rest breaks Other: Pt with good tolerance to tx interventions with steady improvement noted as compared to previous tx sessions. 02/03/24 0859 UE ROM Scapular retraction x Shoulder flexion/extension x Shoulder horizontal abduction/adduction x Other BUE AROM Repetitions x15 Plan Occupational Therapy Care Plan Occupational Therapy Care Plan (Active) Template: OT - Occupational Therapy Problem: Activity Tolerance Dates: Start: 01/31/24 Disciplines: OT Goal: Tolerate > 30 minutes of activity WITHOUT rest breaks Dates: Start: 01/31/24 Expected End: 02/28/24 Description: Goal Description: Disciplines: OT Outcomes Date/Time User Outcome 02/03/24 0944 Katlin Goins, SERVIN/L Progressing 02/02/24 0953 Ludy Ireland OTR/L Not Progressing 02/01/24 1548 Azul Mitchell, SERVIN/L Progressing 02/01/24 1328 Azul Mitchell, SERVIN/L Not Progressing 01/31/24 1609 Zaul Mitchell, SERVIN/L Progressing Goal Note filed on 02/02/24 0953 by Ludy Ireland OTR/L Evaluation of progress towards goal: Problem: Bed Mobility Dates: Start: 01/31/24 Disciplines: OT Goal: Patient will perform bed mobility with Modified [place] Dates: Start: 01/31/24 Expected End: 02/28/24 Description: Goal Description: Disciplines: OT Outcomes Date/Time User Outcome 02/01/24 1328 Azul Mitchell, SERVIN/L Progressing Goal Note filed on 02/01/24 1328 by Azul Medrano SERVIN/L Evaluation of progress towards goal: Problem: Functional Mobility Dates: Start: 01/31/24 Disciplines: OT Goal: Patient will perform functional mobility with Modified [place] Dates: Start: 01/31/24 Expected End: 02/28/24 Description: Goal Description: Disciplines: OT Outcomes Date/Time User Outcome 02/03/24 0944 Katlin Goins, SERVIN/L Progressing 02/01/24 1548 Azul Mitchell, SERVIN/L Progressing 02/01/24 1328 Azul Mitchell, SERVIN/L Not Progressing 01/31/24 1609 Azul Mitchell, SERVIN/L Progressing Goal Note filed on 02/02/24 0953 by Ludy Ireland OTR/Lanie Evaluation of progress towards goal: Problem: Other (Customize) Dates: Start: 01/31/24 Disciplines: OT Goal: Improve Dates: Start: 01/31/24 Expected End: 02/28/24 Description: Goal Description: Complete ADLs [place] with AE/DME Disciplines: OT Problem: Sitting Balance Dates: Start: 01/31/24 Disciplines: OT Goal: Improve balance to good Dates: Start: 01/31/24 Expected End: 02/28/24 Description: Static Dynamic Disciplines: OT Outcomes Date/Time User Outcome 02/03/24 0944 Katlin Goins, SERVIN/L Progressing 02/02/24 0953 Ludy Ireland OTR/L Progressing 02/01/24 1548 Azul Mitchell, SERVIN/L Progressing 02/01/24 1328 Azul Mitchell, SERVIN/L Not Progressing 01/31/24 1609 Azul Mitchell, SERVIN/L Progressing Goal Note filed on 02/02/24 0953 by Ludy Ireland OTR/Lanie Evaluation of progress towards goal: Problem: Standing Balance Dates: Start: 01/31/24 Disciplines: OT Goal: Improve balance to good Dates: Start: 01/31/24 Expected End: 02/28/24 Description: Static Dynamic Disciplines: OT Outcomes Date/Time User Outcome 02/03/24 0944 Katlin Goins, SERVIN/L Progressing 02/02/24 0953 Ludy Ireland OTR/L Not Progressing 02/01/24 1548 Azul Mitchell, SERVIN/L Progressing 02/01/24 1328 Azul Mitchell, SERVIN/L Not Progressing 01/31/24 1609 Azul Mitchell, SERVIN/L Progressing Goal Note filed on 02/02/24 0953 by Ludy Ireland OTR/Lanie Evaluation of progress towards goal: Problem: Strength Dates: Start: 01/31/24 Disciplines: OT Goal: Improve strength Dates: Start: 01/31/24 Expected End: 02/28/24 Description: Of extremity/ location: Tolerate bilat UE exercises to increase strength and endurancefor self care tasks To facilitate: Disciplines: OT Outcomes Date/Time User Outcome 02/03/24 0944 CHARU MenesesA/L Progressing 02/01/24 1548 Azul Medrano, SERVIN/L Progressing 01/31/24 1609 Azul Mitchell, SERVIN/L Not Progressing Goal Note filed on 02/01/24 1548 by CHARU NielsenA/Lanie Evaluation of progress towards goal: Problem: Transfers Dates: Start: 01/31/24 Disciplines: OT Goal: Patient will perform transfers with Modified [place] Dates: Start: 01/31/24 Expected End: 02/28/24 Description: Goal Description: Disciplines: OT Outcomes Date/Time User Outcome 02/03/24 0944 Katlin Goins SERVIN/Lanie Progressing 02/02/24 0953 WILLARD Banda/Lanie Progressing 02/01/24 1548 Azul Medrano, SERVIN/L Progressing 02/01/24 1328 Azul Medrano, SERVIN/L Not Progressing 01/31/24 1609 Azul Medrano, SERVIN/L Progressing Goal Note filed on 02/02/24 0953 by Ludy Ireland OTR/Lanie Evaluation of progress towards goal: Occupational Therapy Care Plan (Resolved) There are no resolved problems. Principal Problem: Closed fracture of right hip, initial encounter ([facility] Active Problems: [place]-prosthetic fracture around prosthetic hip Associated attestation - Ludy Dey OTR/L - 02/03/2024 11:43 AM EDT I have reviewed and agree with this note and education documentation for this visit. * Plan of Care - Lian Silva RN - 02/03/2024 8:45 AM EDT Problem: Pain Goal: Patient goal is pain score less than 4, able to rest, and participant in treatment plan as appropriate Description: INTERVENTIONS: 1. Encourage patient or legal charter representative to report early pain and ask for pain medicine when needed 2. Assess pain using appropriate pain scale and include the scale used when documenting 3. Administer analgesics based on type and severity of pain and evaluate response within appropriate time frame 4. Implement non-pharmacological measures as appropriate and evaluate response 5. Consider cultural and social influences on pain and pain management 6. Notify LIP if interventions ineffective or patient reports new pain 7. Monitor vital signs including pulse ox 8. Reassess pain per policy 9. Teach patient or legal charter representative interventions for comforting Outcome: Progressing Note: Evaluation of progress towards goal: Verbalizes adequate comfort level. Please see MAR for pain management orders. Problem: Glucose Imbalance Goal: Clinical indication of glucose balance is achieved Description: Patient's goal is: INTERVENTIONS 1. Monitor blood glucose levels as ordered 2. Administer medications as ordered 3. Notify physician of ineffective treatment plan Outcome: Progressing Note: Evaluation of progress towards goal: Lab values monitored per shift; replacements provided asneeded or required. Will continue to monitor electrolyte values. Problem: Moderate - High Risk Fall Score Description: [place] Fall Score of =/> 25 or indicated by [facility] Assessment Goal: Patient should be free from fall Description: Interventions: 1. [place] to environment 2. Hourly rounds addressing the 4 P's (Pain, Positioning, Possessions, Potty) 3. Clear area of hazards (spills, clutter, electrical cords, unnecessary equipment) 4. Place equipment (bed & TV controls, call light, phone, urinal) within reach 5. Encourage patient to wear glasses and hearing aides as appropriate 6. Maintain bed in lowest position 7. Lock wheels on bed/wheelchair 8. Provide adequate lighting, including night light 9. Assess need for additional bedding, food/fluids, pain med's prior to sleep/routinely 10. Provide gripper slippers or personal non-skid footwear 11. Teach patient and patient charter representative to maintain environment for safety and engage in all aspects of fall prevention program 12. Remind patient to call for help before getting out of bed 13. Initiate bed/chair/exit alarms supportive devices as appropriate, (chair wedge, no-skid floor mat, raised edge mattress, hip protectors) 14. Locate patient bed assignment for optimal visualization 15. Evaluate and identify Safe Patient Handling Equipment needs 16. Provide supervision when out of bed or chair 17. Utilize gait belt as needed to assist with ambulation 18. Place adaptive equipment (cane, walker) within reach 19. Request patient charter representative bring adaptive equipment/mobility aids from home or obtain and provide as needed 20. Consult pharmacy regarding effects of med's affecting mobility, cognition, and alternatives 21. Obtain physician order for PT if risk factors associated with mobility are present 22. Obtain physician order for OT as appropriate 23. Utilize diversional activities 24. Educate patient and patient charter representative how to maintain a safe environment during visitationtimes (notify nurse prior to leaving bedside) 25. Consider appropriateness of medical or non-medical librarian 26. Set up voiding schedule as appropriate (every 2 hours) Outcome: Progressing Note: Evaluation of progress towards goal: Call light within reach. Remains free of fall or injury.Environment free of clutter. * Plan of Care - Carin Contreras RN - 02/03/2024 6:10 AM EDT Problem: Infection Goal: Absence of infection during hospitalization Description: Interventions: 1. Assess and monitor for signs and symptoms of infection 2. Monitor lab/diagnostic results 3. Monitor all insertion sites i.e., indwelling lines, tubes and drains 4. Monitor endotracheal (as able) and nasal secretions for changes in amount and color 5. Administer medications as ordered 6. Instruct and encourage patient and family to use good hand hygiene technique 7. Identify and instruct patient/patient charter representative in use of appropriate isolation precautionsfor identified infection/symptoms 8. Provide and discuss with patient/patient charter representative on educational MDRO sheet 9. Encourage and monitor nutritional status daily and consult maxillofacial pathology if indicated 10. Implement neutropenic guidelines as needed 11. Review exposure to history of communicable disease and recent travel history on admission 12. Encourage annual influenza vaccine 13. Encourage pneumonia vaccine Outcome: Progressing Note: Evaluation of progress towards goal: Patient verbalized understanding proper handwashing is first line of infection prevention. Patient shows no S/S of infection at this time. Problem: Knowledge Deficit Goal: Patient/patient charter representative demonstrates understanding of disease process, treatment plan,medications, and discharge instructions Description: INTERVENTIONS 1. Complete learning assessment and assess knowledge base 2. Provide teaching at level of understanding 3. Provide teaching via preferred learning method(s) Outcome: Progressing Note: Evaluation of progress towards goal: Patient agrees with treatment plan at this time. * Discharge Planning Note - Araceli Motta - 02/02/2024 3:32 PM EDT DISCHARGE PLANNING NOTE [facility] transport via PTN confirmed in [facility] to [facility] 6.22.24 at 2:00pm. * PT/OT/THERMAL SURFACING MACHINE OPERATOR - Ludy Ireland OTR/Lanie - 02/02/2024 2:02 PM EDT Occupational Therapy CANCEL - Deferred Pt currently off floor for RLE dopplers. Will continue POC as able. * PT/OT/THERMAL SURFACING MACHINE OPERATOR - Nas Lima PTA - 02/02/2024 2:00 PM EDT Physical Therapy (P) CANCEL - Deferred (pt. off floor for dopplers-Cont per POC when available) Associated attestation - Carlos Brar, PT - 02/02/2024 3:00 PM EDT I have reviewed and agree with this note and education documentation for this visit. * Plan of Care - Lian Silva RN - 02/02/2024 1:10 PM EDT Problem: Pain Goal: Patient goal is pain score less than 4, able to rest, and participant in treatment plan as appropriate Description: INTERVENTIONS: 1. Encourage patient or legal charter representative to report early pain and ask for pain medicine when needed 2. Assess pain using appropriate pain scale and include the scale used when documenting 3. Administer analgesics based on type and severity of pain and evaluate response within appropriate time frame 4. Implement non-pharmacological measures as appropriate and evaluate response 5. Consider cultural and social influences on pain and pain management 6. Notify LIP if interventions ineffective or patient reports new pain 7. Monitor vital signs including pulse ox 8. Reassess pain per policy 9. Teach patient or legal charter representative interventions for comforting Outcome: Progressing Note: Evaluation of progress towards goal: Verbalizes adequate comfort level. Currently denies pain. Please see MAR for pain management orders. Problem: Safety Goal: Patient will be injury free during hospitalization Description: INTERVENTIONS: 1. Assess patient's risk for falls and implement fall prevention plan of care per policy 2. Provide and maintain a safe environment 3. Proper use of double Identifiers 4. Medication administration using the 5 rights 5. Hand hygiene 6. Specimens are labeled at the bedside 7. Instruct patient/ patient charter representative about use of safety devices 8. Include patient/ patient charter representative in decisions related to safety Outcome: Progressing Note: Evaluation of progress towards goal: Proper identifiers used with patient care and medicationadministration. Remains free of injury during shift. Problem: Infection Goal: Absence of infection during hospitalization Description: Interventions: 1. Assess and monitor for signs and symptoms of infection 2. Monitor lab/diagnostic results 3. Monitor all insertion sites i.e., indwelling lines, tubes and drains 4. Monitor endotracheal (as able) and nasal secretions for changes in amount and color 5. Administer medications as ordered 6. Instruct and encourage patient and family to use good hand hygiene technique 7. Identify and instruct patient/patient charter representative in use of appropriate isolation precautionsfor identified infection/symptoms 8. Provide and discuss with patient/patient charter representative on educational MDRO sheet 9. Encourage and monitor nutritional status daily and consult maxillofacial pathology if indicated 10. Implement neutropenic guidelines as needed 11. Review exposure to history of communicable disease and recent travel history on admission 12. Encourage annual influenza vaccine 13. Encourage pneumonia vaccine Outcome: Progressing Note: Evaluation of progress towards goal: Skin integrity remains in stable condition; remains w/o ss of infection, fever, pain, or increased discomfort. Problem: Knowledge Deficit Goal: Patient/patient charter representative demonstrates understanding of disease process, treatment plan,medications, and discharge instructions Description: INTERVENTIONS 1. Complete learning assessment and assess knowledge base 2. Provide teaching at level of understanding 3. Provide teaching via preferred learning method(s) Outcome: Progressing Note: Evaluation of progress towards goal: Verbalizes understanding of current treatment plan as educated. Will continue to educate for understanding. Problem: Discharge Planning Goal: Discharge to post-acute care, other facility, or home with appropriate resources Description: Patient's goal is: INTERVENTIONS 1. Conduct assessment to determine patient/family and health care team treatment goals, and need for post-acute services based on payer coverage, community resources, and patient preferences, and barriers to discharge 2. Coordinate with Social work, Care Navigation, and Utilization Review to arrange appropriate level of services according to patient's needs based on patient preference and payer coverage in collaboration with the physician and health care team 3. Address psychosocial, clinical, and financial barriers to discharge as identified in assessment in conjunction with the patient/family and health care team 4. Consult appropriate ancillary services (i.e.. PT/OT/ST, etc) as needed 5. Communicate with and update the patient/family, physician, and health care team regarding progress on the discharge plan 6. Identify discharge learning needs (meds, wound care, etc). 7. Arrange for needed discharge transportation as appropriate Outcome: Progressing Note: Evaluation of progress towards goal: Discharge planning in process; will continue to monitor for discharge needs. Problem: Potential for Compromised Skin Integrity Goal: Skin integrity is maintained or improved Description: Patient's goal is: INTERVENTIONS 1. Perform initial skin assessment on admission and as needed 2. Turn patient every 2 hours and PRN 3. Relieve pressure to bony prominences 4. Avoid shearing 5. Keep skin clean and dry 6. Alternate a full bath with partial baths for elderly 7. Apply lotion/moisturizer on skin 8. Monitor patient's hygiene practices 9. Float heels 10. Collaborate with interdisciplinary team and initiate plans and interventions as needed Outcome: Progressing Note: Evaluation of progress towards goal: No new skin breakdown at this time continue to monitor for signs of new breakdown Goal: Patient's nutritional intake is adequate Description: Patient's goal is: INTERVENTIONS 1. Assess and monitor food intake and supplements, patient food preferences, nausea, vomiting, labs, oral cavity (gums, teeth, tongue, mucosa), proper denture fit, and cultural beliefs 2. Monitor for signs of hypoglycemia and hyperglycemia 3. Collaborate with interdisciplinary team and initiate plan and interventions as ordered 4. Monitor patient's weight 5. Assist patient with meals/food selection 6. Assist patient with eating 7. Allow adequate time for meals 8. Provide pleasant environment during mealtime 9. Increase social contact during mealtimes 10. Plan activities to conserve energy 11. Encourage/perform oral hygiene as appropriate 12. Encourage patient to take dietary supplement as ordered 13. Collaborate with clinical maxillofacial pathology 14. Include patient/ patient's charter representative in decisions related to nutrition Outcome: Progressing Note: Evaluation of progress towards goal: Adequate nutritional intake per shift. Problem: Urinary Incontinence Goal: Perineal skin integrity is maintained or improved Description: INTERVENTIONS 1. Assess genitourinary system, perineal skin, labs (urinalysis), and history of incontinence to include past management, aggravating, and alleviating factors 2. Keep skin clean and dry 3. Apply skin protectant 4. Develop skin care regimen 5. Provide privacy when changing patients incontinence device to maintain their dignity 6. Consider placing an indwelling catheter 7. Collaborate with interdisciplinary team and initiate plans and interventions as needed Outcome: Progressing Note: Evaluation of progress towards goal: No new skin breakdown at this time continue to monitor for signs of new breakdown Problem: Glucose Imbalance Goal: Clinical indication of glucose balance is achieved Description: Patient's goal is: INTERVENTIONS 1. Monitor blood glucose levels as ordered 2. Administer medications as ordered 3. Notify physician of ineffective treatment plan Outcome: Progressing Note: Evaluation of progress towards goal: Lab values monitored per shift; replacements provided asneeded or required. Will continue to monitor electrolyte values. Goal: Patient's discharge needs are met Description: Patient's goal is: INTERVENTIONS 1. Assess patient for self-management skills 2. Encourage participation in diabetes management 3. Identify potential discharge barriers on admission and throughout hospital stay 4. Involve patient/S.O. in discharge planning process 5. Communicate referral to special educator as appropriate 6. Communicate referral to maxillofacial pathology as appropriate 7. Collaborate with case management/social worker health services for discharge needs Outcome: Progressing Note: Evaluation of progress towards goal: Discharge planning in process; will continue to monitor for discharge needs. Problem: Moderate - High Risk Fall Score Description: Arredondo Fall Score of =/> 25 or indicated by [facility] Assessment Goal: Patient should be free from fall Description: Interventions: 1. [place] to environment 2. Hourly rounds addressing the 4 P's (Pain, Positioning, Possessions, Potty) 3. Clear area of hazards (spills, clutter, electrical cords, unnecessary equipment) 4. Place equipment (bed & TV controls, call light, phone, urinal) within reach 5. Encourage patient to wear glasses and hearing aides as appropriate 6. Maintain bed in lowest position 7. Lock wheels on bed/wheelchair 8. Provide adequate lighting, including night light 9. Assess need for additional bedding, food/fluids, pain med's prior to sleep/routinely 10. Provide gripper slippers or personal non-skid footwear 11. Teach patient and patient charter representative to maintain environment for safety and engage in all aspects of fall prevention program 12. Remind patient to call for help before getting out of bed 13. Initiate bed/chair/exit alarms supportive devices as appropriate, (chair wedge, no-skid floor mat, raised edge mattress, hip protectors) 14. Locate patient bed assignment for optimal visualization 15. Evaluate and identify Safe Patient Handling Equipment needs 16. Provide supervision when out of bed or chair 17. Utilize gait belt as needed to assist with ambulation 18. Place adaptive equipment (cane, walker) within reach 19. Request patient charter representative bring adaptive equipment/mobility aids from home or obtain and provide as needed 20. Consult pharmacy regarding effects of med's affecting mobility, cognition, and alternatives 21. Obtain physician order for PT if risk factors associated with mobility are present 22. Obtain physician order for OT as appropriate 23. Utilize diversional activities 24. Educate patient and patient charter representative how to maintain a safe environment during visitationtimes (notify nurse prior to leaving bedside) 25. Consider appropriateness of medical or non-medical librarian 26. Set up voiding schedule as appropriate (every 2 hours) Outcome: Progressing Note: Evaluation of progress towards goal: Call light within reach. Remains free of fall or injury.Environment free of clutter. * Discharge Planning Note - JEWEL Harrington - 02/02/2024 12:06 PM EDT DISCHARGE PLANNING NOTE Patient discussed today in daily transition rounds. Current Discharge Plan; [facility]. Current Barriers: pain control. SW requested transport for 2pm tomorrow for DC. - JEWEL HARRINGTON 02/02/24 12:06 PM * PT/OT/THERMAL SURFACING MACHINE OPERATOR - Nas Lima PTA - 02/02/2024 8:13 AM EDT Physical Therapy Treatment Discharge Recommendations PT Recommendations: Inpatient Rehab 6 Clicks: Basic Mobility Turning from your back to your side while in a flat bed without using bed rails?: A lot Moving from lying on your back to sitting on side of flat bed without using bed rails?: A lot Moving to and from bed to a chair (including w/c)?: A lot Standing up from a chair using your arms (e.g. w/c or bedside chair)?: A lot To walk in hospital room?: A lot Climbing 3-5 steps with a railing?: Total Scoring 6 Clicks: Basic Mobility Raw Score: 11 CMS G Code Modifier: CL PT Treatment/Interventions: Functional transfer training, LE strengthening/ROM, Endurance training,Patient/family training, Equipment eval/education, Balance, Stair training, Bed mobility, Gait training, Functional activities PT Frequency: Twice a Day PT Duration: LOS Patient Response to Treatment: Slow progress, decreased activity tolerance Assessment Patient Assessment Therapy Problem List: Decreased balance, Decreased endurance, Decreased mobility, Decreased safe judgement during ADL, Decreased LE ROM, Decreased LE strength Patient Response to Treatment: Slow progress, decreased activity tolerance Mood/Affect: Appropriate for circumstances Rehab Prognosis: Good, With continued PT status post acute discharge Visit RN Communication: Yes Medical Record Reviewed: Yes PT Type of Visit: Treatment Precautions Activity: Early mobility pass; okay to see per RN Equipment: Gait belt, RW Weight Bearing Status: WBAT RLE Telemetry/Paper Machine Back Tender: Yes Other: fall risk Pain Assessment Pain Assessment: 0-10 Pain Score: 9 Pain Type: Acute pain, Surgical pain Pain Location: Hip, Leg Pain Orientation: Right Effect of Pain on Daily Activities: comfort, mobility Patient's Stated Pain Goal: No pain Pain Intervention(s): Repositioned, Ambulation/increased activity, Elevated, Cold applied Response to Interventions: Quiet, No grimacing Cognition Orientation Level: Oriented X4 Bed Mobility Other: Patient in recliner at beginning and end of session, call light left near. BLEs elevated with ice to R hip. RN notified of patient location and response to treatment. Transfers Sit to Stand: Min assist, Verbal cues, Tactile cues (x2) Stand to Sit: Min assist, Verbal cues, Tactile cues (x2) Other: Patient cued for hand placement/technique for safe sit<>stand transfers- Min Ax2 neededto complete full stand from level bed height. Cues to reach back prior to sitting-Min Ax2 offered to prevent uncontrolled descend when sitting. Gait Pattern: Decreased jesusita, Antalgic gait, R Decreased heel strike, L Decreased heel strike, R Decreased foot clearance, L Decreased foot clearance, L Decreased stance time, R Decreased stance time, R Flexed knee Gait Assistance: Mod assist, Standby assist (Mod A +SBA for close recliner follow\) Assistive Device: Rolling walker Gait Distance: 10ftx1 Limiting Factors to Gait: Fatigue, Weakness, Pain 2 Turns: Not attempted d/t safety concerns Other: Patient demos major difficulties lifting and advancing BLEs this session- Observable B knee flexion/buckling throughout-Worse as patient fatigued. Cues for AD proximity to increase safety and stability within walker frame-Mod Ax1 offered for safety and standing support throughout +SBA for close recliner follow. no major LOB noted. Balance Sitting Balance: Static: Fair Sitting Balance: Dynamic: Fair (-) Standing Balance: Static: Poor Standing Balance: Dynamic: Poor Other: BUE support on RW with Mod Ax1 for safety and standing support during ambulation-Pt. demos major difficulties completing short range distance due to pain/weakness. B knee buckling noted without major LOB. Deferred additional ambulation due to safety concerns. 02/02/24 0837 LE Supine LE supine exercises performed? Yes Ankle pumps X Quad sets X Supine heel slides AAROM RLE Hip abduction AAROM RLE Other ROM limited by pain Repetitions 10 LE Seated LE seated exercises performed? Yes Ankle pumps X Long arc quads AAROM LLE Seated marching unable to tolerate RLE Other AAROM to complete through limited ROM Repetitions 10 Activity Tolerance Endurance: Tolerates 30 minutes activity with rest breaks Other: Extra time/effort needed to complete all functional mobility due to weakness/lethargy/pain. Limited/poor ambulation tolerance-Increased need compared to previous session-Deferred additional ambulation due to safety concerns. AAROM needed to complete RLE exercises through end range-Limited by pain Plan Physical Therapy Care Plan Physical Therapy Care Plan (Active) Template: PT - Physical Therapy Problem: Activity Tolerance Dates: Start: 01/31/24 Disciplines: PT Goal: Tolerate > 30 minutes of activity WITH rest breaks Dates: Start: 01/31/24 Expected End: 02/14/24 Description: Goal Description: Disciplines: PT Outcomes Date/Time User Outcome 02/02/24 0937 Nas Lima, LIVE IN HOUSEKEEPER Progressing 02/01/24 1525 Nick Fernandez, LIVE IN HOUSEKEEPER Progressing 02/01/24 1140 Nick Fernandez PTA Progressing 01/31/24 1545 Nick Fernandez PTA Progressing Goal Note filed on 02/01/24 1525 by Nick Fernandez PTA Evaluation of progress towards goal: Problem: Bed Mobility Dates: Start: 01/31/24 Disciplines: PT Goal: Patient will perform bed mobility with Minimum Assist Dates: Start: 01/31/24 Expected End: 02/14/24 Description: Goal Description: Disciplines: PT Outcomes Date/Time User Outcome 02/01/24 1525 Nick Fernandez, LIVE IN HOUSEKEEPER Progressing 02/01/24 1140 Nick Fernandez PTA Progressing Goal Note filed on 02/01/24 1525 by Nick Fernandez PTA Evaluation of progress towards goal: Problem: Gait Dates: Start: 01/31/24 Disciplines: PT Goal: Patient will perform gait with Contact Guard Dates: Start: 01/31/24 Expected End: 02/14/24 Description: With__rw__,__150__feet Goal Description: Disciplines: PT Outcomes Date/Time User Outcome 02/02/24 0937 Nas Lima, LIVE IN HOUSEKEEPER Not Progressing 02/01/24 1525 iNck Fernandez PTA Progressing 02/01/24 1140 Nick Fernandez PTA Not Progressing 01/31/24 1545 Nick Fernandez PTA Progressing Goal Note filed on 02/01/24 1525 by Nick Fernandez PTA Evaluation of progress towards goal: Problem: Stairs/Curb Dates: Start: 01/31/24 Disciplines: PT Goal: Patient will perform stairs/curb with Minimum Assist Dates: Start: 01/31/24 Expected End: 02/14/24 Description: ___1__steps,_rw no____hand rails Goal Description: Disciplines: PT Problem: Standing Balance Dates: Start: 01/31/24 Disciplines: PT Goal: Improve balance to good Dates: Start: 01/31/24 Expected End: 02/14/24 Description: Static Dynamic- with support of rw Disciplines: PT Outcomes Date/Time User Outcome 02/02/24 0937 Nas Lima, LIVE IN HOUSEKEEPER Not Progressing 02/01/24 1525 Nick Fernandez, LIVE IN HOUSEKEEPER Progressing 02/01/24 1140 Nick Fernandez PTA Not Progressing 01/31/24 1545 Nick Fernandez, LIVE IN HOUSEKEEPER Progressing Goal Note filed on 02/01/24 1525 by Nick Fernandez PTA Evaluation of progress towards goal: Problem: Strength Dates: Start: 01/31/24 Disciplines: PT Goal: Improve strength Dates: Start: 01/31/24 Expected End: 02/14/24 Description: Of extremity/ location:Complete 20 reps bilat LE ex's To facilitate: Disciplines: PT Outcomes Date/Time User Outcome 02/02/24 0937 Nas Lima PTA Progressing 02/01/24 1525 Nick Fernandez PTA Progressing 02/01/24 1140 Nick Fernandez PTA Not Progressing 01/31/24 1545 Nick Fernandez PTA Progressing Goal Note filed on 02/01/24 1525 by Nick Fernandez PTA Evaluation of progress towards goal: Problem: Transfers Dates: Start: 01/31/24 Disciplines: PT Goal: Patient will perform transfers with Contact Guard Dates: Start: 01/31/24 Expected End: 02/14/24 Description: Goal Description: Disciplines: PT Outcomes Date/Time User Outcome 02/02/24 0937 Nas Lima, SHERYL Progressing 02/01/24 1525 Nick Fernandez PTA Progressing 02/01/24 1140 Nick Fernandez PTA Not Progressing 01/31/24 1545 Nick Fernandez PTA Progressing Goal Note filed on 02/01/24 1525 by Nick Fernandez PTA Evaluation of progress towards goal: Physical Therapy Care Plan (Resolved) There are no resolved problems. Principal Problem: Closed fracture of right hip, initial encounter ([facility]) Active Problems: Myah-prosthetic fracture around prosthetic hip Associated attestation - Carlos Brar PT - 02/02/2024 3:00 PM EDT I have reviewed and agree with this note and education documentation for this visit. * PT/OT/THERMAL SURFACING MACHINE OPERATOR - WILLARD Banda/Lanie - 02/02/2024 8:13 AM EDT Occupational Therapy Treatment Discharge Recommendations OT Recommendations : Inpatient Rehab 6 Clicks: Daily Activity Putting on and taking off regular lower body clothing?: A lot Bathing (including washing, rinsing, drying)?: A lot Toileting, which includes using toilet, bedpan or urinal?: A little Putting on and taking off regular upper body clothing?: A little Taking care of personal grooming such as brushing teeth?: None Eating meals?: None Scoring Daily Activity Raw Score: 18 CMS G Code Modifier: CK OT Treatment/Interventions: ADL retraining, Functional transfer training, LE strengthening/ROM, UE strengthening/ROM, Endurance training, Patient/family training, Equipment eval/education, Balance, Bed mobility, Compensatory technique education, Functional activities OT Frequency: Twice a Day OT Duration: Until discharge Assessment Patient Assessment Therapy Problem List: Decreased ADL status, Decreased balance, Decreased gross motor, Decreased mobility, Decreased self-care trans, Decreased UE strength, Decreased LE strength, Decreased endurance Patient Response to Treatment: Slow progress, decreased activity tolerance Mood/Affect: Appropriate for circumstances Rehab Prognosis: Good, With continued OT status post acute discharge Visit RN Communication: Yes Medical Record Reviewed: Yes OT Type of Visit: Treatment Precautions Activity: early mobility: pass; ok to see per RN Equipment: RW, gait belt Weight Bearing Status: WBAT Rt LE Telemetry/Paper Machine Back Tender: Yes Oxygen Used: room air Other: fall risk Pain Assessment Pain Assessment: 0-10 Pain Score: 9 Pain Type: Acute pain, Surgical pain Pain Location: Hip, Leg Pain Orientation: Right Pain Intervention(s): Cold applied, Repositioned, Ambulation/increased activity, Emotional support Response to Interventions: Pain unchanged, Quiet ADL / IADL Other: ADLs were not the focus of this session. Home Management - IADL Other: ADLs were not the focus of this session. Hearing / Speech / Vision Hearing: Within Functional Limits Speech: Within Functional Limits Current Vision: Wears glasses only for reading Cognition Orientation Level: Oriented X4 Bed Mobility Other: NT; pt up in chair at begining and end of session with call light in reach , all needs met. RN aware/present at end to pass meds. Transfers Sit to Stand: Min assist (x2) Stand to Sit: Min assist (x2) Other: Pt completed STS from recliner with min x2 assist for safety and due to pain/weakness. Cues for hand placement. Pt demod poor ability to bring hands from chair up to RW. Gait Gait Assistance: Mod assist (with close chair follow) Assistive Device: Rolling walker Gait Distance: 10 ft Limiting Factors to Gait: Fatigue, Weakness, Pain Other: pt completed very unsafe functional mobility this date. pt demod buckling in BLEs with poor ability to advance BLEs during gait. close chair follow was required and pt required sitting in chair due to safety concerns. Balance Sitting Balance: Static: Fair Sitting Balance: Dynamic: Fair (-) Standing Balance: Static: Poor Standing Balance: Dynamic: Poor Other: BUE support on RW during standing balance. Activity Tolerance Endurance: Tolerates <30 minutes activity WITHOUT vital sign changes Other: Poor overall tolerance. Upon entering room, pt complaining of pain and stating he has been left alone for the last 10 hours. pt is very agitated throughout. encouragement and emotional supportattempted with little relief to pt. increased time and effort for all tasks this date. poor safety awareness. Plan Occupational Therapy Care Plan Occupational Therapy Care Plan (Active) Template: OT - Occupational Therapy Problem: Activity Tolerance Dates: Start: 01/31/24 Disciplines: OT Goal: Tolerate > 30 minutes of activity WITHOUT rest breaks Dates: Start: 01/31/24 Expected End: 02/28/24 Description: Goal Description: Disciplines: OT Outcomes Date/Time User Outcome 02/02/24 0953 Lduy Ireland OTR/L Not Progressing 02/01/24 1548 Azul Mitchell, SERVIN/L Progressing 02/01/24 1328 Azulvanessa Medrano, SERVIN/L Not Progressing 01/31/24 1609 Azul Mitchell, SERVIN/L Progressing Goal Note filed on 02/02/24 0953 by Ludy Ireland OTR/Lanie Evaluation of progress towards goal: Problem: Bed Mobility Dates: Start: 01/31/24 Disciplines: OT Goal: Patient will perform bed mobility with Modified [place] Dates: Start: 01/31/24 Expected End: 02/28/24 Description: Goal Description: Disciplines: OT Outcomes Date/Time User Outcome 02/01/24 1328 Azul Mitchell, SERVIN/L Progressing Goal Note filed on 02/01/24 1328 by CHARU NielsenA/L Evaluation of progress towards goal: Problem: Functional Mobility Dates: Start: 01/31/24 Disciplines: OT Goal: Patient will perform functional mobility with Modified [place] Dates: Start: 01/31/24 Expected End: 02/28/24 Description: Goal Description: Disciplines: OT Outcomes Date/Time User Outcome 02/01/24 1548 Azul Mitchell, SERVIN/L Progressing 02/01/24 1328 Azul Mitchell, SERVIN/L Not Progressing 01/31/24 1609 Azul Mitchell, SERVIN/L Progressing Goal Note filed on 02/02/24 0953 by Ludy Ireland OTR/Lanie Evaluation of progress towards goal: Problem: Other (Customize) Dates: Start: 01/31/24 Disciplines: OT Goal: Improve Dates: Start: 01/31/24 Expected End: 02/28/24 Description: Goal Description: Complete ADLs [place] with AE/DME Disciplines: OT Problem: Sitting Balance Dates: Start: 01/31/24 Disciplines: OT Goal: Improve balance to good Dates: Start: 01/31/24 Expected End: 02/28/24 Description: Static Dynamic Disciplines: OT Outcomes Date/Time User Outcome 02/02/24 0953 Ludy Ireland OTR/Lanie Progressing 02/01/24 1548 Azul Mitchell, SERVIN/L Progressing 02/01/24 1328 Azul Mitchell, SERVIN/L Not Progressing 01/31/24 1609 Azul Mitchell, SERVIN/L Progressing Goal Note filed on 02/02/24 0953 by WILLARD Banda/Lanie Evaluation of progress towards goal: Problem: Standing Balance Dates: Start: 01/31/24 Disciplines: OT Goal: Improve balance to good Dates: Start: 01/31/24 Expected End: 02/28/24 Description: Static Dynamic Disciplines: OT Outcomes Date/Time User Outcome 02/02/24 0953 Ludy Ireland OTR/Lanie Not Progressing 02/01/24 1548 Azul Mitchell, SERVIN/L Progressing 02/01/24 1328 Azul Mitchell, SERVIN/L Not Progressing 01/31/24 1609 Azul Mitchell, SERVIN/L Progressing Goal Note filed on 02/02/24 0953 by Ludy Ireland OTR/Lanie Evaluation of progress towards goal: Problem: Strength Dates: Start: 01/31/24 Disciplines: OT Goal: Improve strength Dates: Start: 01/31/24 Expected End: 02/28/24 Description: Of extremity/ location: Tolerate bilat UE exercises to increase strength and endurancefor self care tasks To facilitate: Disciplines: OT Outcomes Date/Time User Outcome 02/01/24 1548 CHARU NielsenA/L Progressing 01/31/24 1609 Azul Mitchell, SERVIN/L Not Progressing Goal Note filed on 02/01/24 1548 by MALATHI Nielsen/Lanie Evaluation of progress towards goal: Problem: Transfers Dates: Start: 01/31/24 Disciplines: OT Goal: Patient will perform transfers with Modified [place] Dates: Start: 01/31/24 Expected End: 02/28/24 Description: Goal Description: Disciplines: OT Outcomes Date/Time User Outcome 02/02/24 0953 WILLARD Banda/Lanie Progressing 02/01/24 1548 MALATHI Nielsen/Lanie Progressing 02/01/24 1328 Azulvanessa Medrano, SERVIN/L Not Progressing 01/31/24 1609 Azul Medrano, SERVIN/L Progressing Goal Note filed on 02/02/24 0953 by WILLARD Banda/Lanie Evaluation of progress towards goal: Occupational Therapy Care Plan (Resolved) There are no resolved problems. Principal Problem: Closed fracture of right hip, initial encounter ([facility]) Active Problems: Myah-prosthetic fracture around prosthetic hip * Plan of Care - Lacey Singer RN - 02/01/2024 10:15 PM EDT Problem: Pain Goal: Patient goal is pain score less than 4, able to rest, and participant in treatment plan as appropriate Description: INTERVENTIONS: 1. Encourage patient or legal charter representative to report early pain and ask for pain medicine when needed 2. Assess pain using appropriate pain scale and include the scale used when documenting 3. Administer analgesics based on type and severity of pain and evaluate response within appropriate time frame 4. Implement non-pharmacological measures as appropriate and evaluate response 5. Consider cultural and social influences on pain and pain management 6. Notify LIP if interventions ineffective or patient reports new pain 7. Monitor vital signs including pulse ox, end-tidal CO2 based on pain intervention 8. Reassess pain per policy 9. Teach patient or legal charter representative interventions for comforting Outcome: Progressing Note: Evaluation of progress towards goal: Patient's pain is adequately managed by pharmacological/non-pharmacological interventions. Patient reports that these interventions are helpful and pain is being managed appropriately. Problem: Safety Goal: Patient will be injury free during hospitalization Description: INTERVENTIONS: 1. Assess patient's risk for falls and implement fall prevention plan of care per policy 2. Provide and maintain a safe environment 3. Proper use of double Identifiers 4. Medication administration using the 5 rights 5. Hand hygiene 6. Specimens are labeled at the bedside 7. Instruct patient/ patient charter representative about use of safety devices 8. Include patient/ patient charter representative in decisions related to safety Outcome: Progressing Note: Evaluation of progress towards goal: Assessed patient's risk for falls and implemented fall prevention plan of care per policy. Provided and maintained a safe environment. Pt remains free from falls and injury during this stay. * PT/OT/THERMAL SURFACING MACHINE OPERATOR - NALLELY Nielsen 02/01/2024 3:49 PM EDT Occupational Therapy Treatment Discharge Recommendations OT Recommendations : Inpatient Rehab Inpatient Rehab Criteria: All inpatient rehab criteria expected to be met (pt. would benefit from further IPR improve strength, endurance and balance for ADL/mobility tasks.) 6 Clicks: Daily Activity Putting on and taking off regular lower body clothing?: A lot Bathing (including washing, rinsing, drying)?: A lot Toileting, which includes using toilet, bedpan or urinal?: A little Putting on and taking off regular upper body clothing?: A little Taking care of personal grooming such as brushing teeth?: None Eating meals?: None Scoring Daily Activity Raw Score: 18 CMS G Code Modifier: CK 02/01/24 1440 UE ROM UE ROM exercises performed? Yes Scapular retraction x Shoulder shrugs x Shoulder horizontal abduction/adduction x Elbow flexion/extension x Forearm supination/pronation x Other BUE AROM as nabil - pain with movement. Repetitions 10-15 OT Treatment/Interventions: ADL retraining, Functional transfer training, LE strengthening/ROM, UE strengthening/ROM, Endurance training, Patient/family training, Equipment eval/education, Balance, Bed mobility, Compensatory technique education, Functional activities OT Frequency: Twice a Day Assessment Patient Assessment Patient Response to Treatment: Slow progress, decreased activity tolerance Visit RN Communication: Yes Medical Record Reviewed: Yes OT Type of Visit: Treatment Precautions Activity: Up to chair TID and ambulate BID Equipment: gait belt, RW Weight Bearing Status: WBAT Rt LE Telemetry/Paper Machine Back Tender: Yes Oxygen Used: room air Other: fall risk Pain Assessment Pain Assessment: 0-10 Pain Score: 8 Pain Type: Acute pain, Surgical pain Pain Location: Hip, Leg Pain Orientation: Right Pain Descriptors: Sharp, Shooting Pain Frequency: Constant/continuous Pain Intervention(s): Repositioned, Ambulation/increased activity Response to Interventions: Quiet, No grimacing ADL / IADL Footwear Assistance: Total assist Footwear Deficit: R sock, L sock, Don/doff compression hose Other: pt. required total A to don/doff hospital socks and joseluis hose. Home Management - IADL Other: pt. required total A to don/doff hospital socks and joseluis hose. Hearing / Speech / Vision Hearing: Within Functional Limits Speech: Within Functional Limits Current Vision: Wears glasses only for reading Cognition Orientation Level: Oriented X4 Other: pt. very anxious - requires increased time/effort to complete all tasks. Bed Mobility Supine to Sit: Mod assist (of 2) Sit to Supine: Unable to assess Other: did not test - pt. sitting in chair upon arrival and left in chair at end of tx. session. Call light in reach, tray table near and RN aware. Transfers Sit to Stand: Min assist (of 2) Stand to Sit: Min assist (of 2) Bed to Chair: Min assist (of 2) Other: pt. demo proper hand placement and good eccentric control when sitting. No c/o dizziness noted. Gait Gait Assistance: Contact guard assist Assistive Device: Rolling walker Gait Distance: Short distance of 12 feet. Other: pt. required close chair follow for safety - increased effort to complete short distance. Cues for posture awareness and safety with manuevering RW. Balance Sitting Balance: Static: Good Sitting Balance: Dynamic: Fair Standing Balance: Static: Fair Standing Balance: Dynamic: Fair (-) Other: with UE support on RW in standing Activity Tolerance Endurance: Tolerates 30 minutes activity with rest breaks Other: rest breaks required between all activity this date - tx. session limited d/t fatigue, pain and decreased endurance. Plan Occupational Therapy Care Plan Occupational Therapy Care Plan (Active) Template: OT - Occupational Therapy Problem: Activity Tolerance Dates: Start: 01/31/24 Disciplines: OT Goal: Tolerate > 30 minutes of activity WITHOUT rest breaks Dates: Start: 01/31/24 Expected End: 02/28/24 Description: Goal Description: Disciplines: OT Outcomes Date/Time User Outcome 02/01/24 1548 Azul Mitchell, SERVIN/L Progressing 02/01/24 1328 Azul Mitchell, SERVIN/L Not Progressing 01/31/24 1609 Azul Mitchell, SERVIN/L Progressing Goal Note filed on 02/01/24 1548 by Azul Medrano SERVIN/Lanie Evaluation of progress towards goal: Problem: Bed Mobility Dates: Start: 01/31/24 Disciplines: OT Goal: Patient will perform bed mobility with Modified [place] Dates: Start: 01/31/24 Expected End: 02/28/24 Description: Goal Description: Disciplines: OT Outcomes Date/Time User Outcome 02/01/24 1328 Azulvanessa Medrano, SERVIN/L Progressing Goal Note filed on 02/01/24 1328 by Azul Medrano SERVIN/Lanie Evaluation of progress towards goal: Problem: Functional Mobility Dates: Start: 01/31/24 Disciplines: OT Goal: Patient will perform functional mobility with Modified [place] Dates: Start: 01/31/24 Expected End: 02/28/24 Description: Goal Description: Disciplines: OT Outcomes Date/Time User Outcome 02/01/24 1548 Azulgin Medrano, SERVIN/L Progressing 02/01/24 1328 Azul Mitchell, SERVIN/L Not Progressing 01/31/24 1609 Azul Mitchell, SERVIN/L Progressing Goal Note filed on 02/01/24 1548 by Azul Medrano SERVIN/Lanie Evaluation of progress towards goal: Problem: Other (Customize) Dates: Start: 01/31/24 Disciplines: OT Goal: Improve Dates: Start: 01/31/24 Expected End: 02/28/24 Description: Goal Description: Complete ADLs [place] with AE/DME Disciplines: OT Problem: Sitting Balance Dates: Start: 01/31/24 Disciplines: OT Goal: Improve balance to good Dates: Start: 01/31/24 Expected End: 02/28/24 Description: Static Dynamic Disciplines: OT Outcomes Date/Time User Outcome 02/01/24 1548 Azul Mitchell, SERVIN/L Progressing 02/01/24 1328 Azul Mitchell, SERVIN/L Not Progressing 01/31/24 1609 Azul Mitchell, SERVIN/L Progressing Goal Note filed on 02/01/24 1548 by MALATHI Nielsen/Lanie Evaluation of progress towards goal: Problem: Standing Balance Dates: Start: 01/31/24 Disciplines: OT Goal: Improve balance to good Dates: Start: 01/31/24 Expected End: 02/28/24 Description: Static Dynamic Disciplines: OT Outcomes Date/Time User Outcome 02/01/24 1548 Azul Mitchell, SERVIN/L Progressing 02/01/24 1328 Azul Mitchell, SERVIN/L Not Progressing 01/31/24 1609 Azul Medrano, SERVIN/L Progressing Goal Note filed on 02/01/24 1548 by CHARU NielsenA/Lanie Evaluation of progress towards goal: Problem: Strength Dates: Start: 01/31/24 Disciplines: OT Goal: Improve strength Dates: Start: 01/31/24 Expected End: 02/28/24 Description: Of extremity/ location: Tolerate bilat UE exercises to increase strength and endurancefor self care tasks To facilitate: Disciplines: OT Outcomes Date/Time User Outcome 02/01/24 1548 Azul Medrano, SERVIN/L Progressing 01/31/24 1609 Azul Mitchell, SERVIN/L Not Progressing Goal Note filed on 02/01/24 1548 by MALATHI Nielsen/Lanie Evaluation of progress towards goal: Problem: Transfers Dates: Start: 01/31/24 Disciplines: OT Goal: Patient will perform transfers with Modified [place] Dates: Start: 01/31/24 Expected End: 02/28/24 Description: Goal Description: Disciplines: OT Outcomes Date/Time User Outcome 02/01/24 1548 Azul Mitchell, SERVIN/L Progressing 02/01/24 1328 Azul Mitchell, SERVIN/L Not Progressing 01/31/24 1609 Azul Mitchell, SERVIN/L Progressing Goal Note filed on 02/01/24 1548 by NALLELY Nielsen Evaluation of progress towards goal: Occupational Therapy Care Plan (Resolved) There are no resolved problems. Principal Problem: Closed fracture of right hip, initial encounter ([facility]) Active Problems: Myah-prosthetic fracture around prosthetic hip Associated attestation - Ludy Ireland OTR/L - 02/02/2024 7:41 AM EDT I have reviewed and agree with this note and education documentation for this visit. * PT/OT/THERMAL SURFACING MACHINE OPERATOR - Nick Fernandez PTA - 02/01/2024 3:39 PM EDT Physical Therapy Treatment (BID) Discharge Recommendations PT Recommendations: Inpatient Rehab Inpatient Rehab Criteria: All inpatient rehab criteria expected to be met 6 Clicks: Basic Mobility Turning from your back to your side while in a flat bed without using bed rails?: A lot Moving from lying on your back to sitting on side of flat bed without using bed rails?: A lot Moving to and from bed to a chair (including w/c)?: A lot Standing up from a chair using your arms (e.g. w/c or bedside chair)?: A lot To walk in hospital room?: A lot Climbing 3-5 steps with a railing?: Total Scoring 6 Clicks: Basic Mobility Raw Score: 11 [facility] G Code Modifier: CL Patient Response to Treatment: Slow progress, decreased activity tolerance 02/01/24 1438 LE Seated LE seated exercises performed? Yes Ankle pumps x Long arc quads x Seated marching LLE only Other verbal and visual cues for proper technique Repetitions 10x Assessment Patient Assessment Patient Response to Treatment: Slow progress, decreased activity tolerance Visit RN Communication: Yes Medical Record Reviewed: Yes PT Type of Visit: Treatment (BID) Precautions Activity: Up to chair TID and ambulate BID Equipment: gait belt, RW Weight Bearing Status: WBAT Rt LE Telemetry/Paper Machine Back Tender: Yes Oxygen Used: room air Other: fall risk Pain Assessment Pain Assessment: 0-10 Pain Score: 8 Pain Type: Acute pain, Surgical pain Pain Location: Hip, Leg Pain Orientation: Right Pain Radiating Towards: to knee Pain Intervention(s): Repositioned, Ambulation/increased activity Response to Interventions: Pain unchanged, Quiet Bed Mobility Supine to Sit: Mod assist (x2) Sit to Supine: Unable to assess (pt left sititng up in bedside chair with light and tray near.) Other: NT, pt found and left sitting up in bedside chair with light and tray near. Transfers Sit to Stand: Min assist (x2) Stand to Sit: Min assist (x2) Bed to Chair: Min assist (x2, assist for RLE advancement) Other: cues for proper RLE foot placement Gait Base of Support: Within Functional Limits Pattern: Decreased jesusita, Antalgic gait, R Decreased heel strike, L Decreased heel strike, R Decreased foot clearance, L Decreased foot clearance, Forward trunk, R Decreased stance time, R Flexed knee Gait Assistance: Contact guard assist Assistive Device: Rolling walker Gait Distance: 12' Limiting Factors to Gait: Fatigue, Weakness, Pain Other: close chair follow, cues for RW use Balance Sitting Balance: Static: Fair (+) Sitting Balance: Dynamic: Fair Standing Balance: Static: Fair Standing Balance: Dynamic: Fair (-) Other: BUE support using RW Activity Tolerance Endurance: Tolerates >30 minutes activity with rest breaks Other: rest breaks as needed Plan Physical Therapy Care Plan Physical Therapy Care Plan (Active) Template: PT - Physical Therapy Problem: Activity Tolerance Dates: Start: 01/31/24 Disciplines: PT Goal: Tolerate > 30 minutes of activity WITH rest breaks Dates: Start: 01/31/24 Expected End: 02/14/24 Description: Goal Description: Disciplines: PT Outcomes Date/Time User Outcome 02/01/24 1525 Nick Fernandez PTA Progressing 02/01/24 1140 Nick Fernandez PTA Progressing 01/31/24 1545 Nick Fernandez PTA Progressing Goal Note filed on 02/01/24 1525 by Nick Fernandez PTA Evaluation of progress towards goal: Problem: Bed Mobility Dates: Start: 01/31/24 Disciplines: PT Goal: Patient will perform bed mobility with Minimum Assist Dates: Start: 01/31/24 Expected End: 02/14/24 Description: Goal Description: Disciplines: PT Outcomes Date/Time User Outcome 02/01/24 1525 Nick Fernandez PTA Progressing 02/01/24 1140 Nick Fernandez PTA Progressing Goal Note filed on 02/01/24 1525 by Nick Fernandez PTA Evaluation of progress towards goal: Problem: Gait Dates: Start: 01/31/24 Disciplines: PT Goal: Patient will perform gait with Contact Guard Dates: Start: 01/31/24 Expected End: 02/14/24 Description: With__rw__,__150__feet Goal Description: Disciplines: PT Outcomes Date/Time User Outcome 02/01/24 1525 Nick Fernandez PTA Progressing 02/01/24 1140 Nick Fernandez PTA Not Progressing 01/31/24 1545 Nick Fernandez PTA Progressing Goal Note filed on 02/01/24 1525 by Nick Fernandez PTA Evaluation of progress towards goal: Problem: Stairs/Curb Dates: Start: 01/31/24 Disciplines: PT Goal: Patient will perform stairs/curb with Minimum Assist Dates: Start: 01/31/24 Expected End: 02/14/24 Description: ___1__steps,_rw no____hand rails Goal Description: Disciplines: PT Problem: Standing Balance Dates: Start: 01/31/24 Disciplines: PT Goal: Improve balance to good Dates: Start: 01/31/24 Expected End: 02/14/24 Description: Static Dynamic- with support of rw Disciplines: PT Outcomes Date/Time User Outcome 02/01/24 1525 Nick Fernandez PTA Progressing 02/01/24 1140 Nick Fernandez PTA Not Progressing 01/31/24 1545 Nick Fernandez PTA Progressing Goal Note filed on 02/01/24 1525 by Nick Fernandez PTA Evaluation of progress towards goal: Problem: Strength Dates: Start: 01/31/24 Disciplines: PT Goal: Improve strength Dates: Start: 01/31/24 Expected End: 02/14/24 Description: Of extremity/ location:Complete 20 reps bilat LE ex's To facilitate: Disciplines: PT Outcomes Date/Time User Outcome 02/01/24 1525 Nick Fernandez PTA Progressing 02/01/24 1140 Nick Fernandez PTA Not Progressing 01/31/24 1545 Nick Fernandez PTA Progressing Goal Note filed on 02/01/24 1525 by Nick Fernandez PTA Evaluation of progress towards goal: Problem: Transfers Dates: Start: 01/31/24 Disciplines: PT Goal: Patient will perform transfers with Contact Guard Dates: Start: 01/31/24 Expected End: 02/14/24 Description: Goal Description: Disciplines: PT Outcomes Date/Time User Outcome 02/01/24 1525 Nick Fernandez PTA Progressing 02/01/24 1140 Nick Fernandez PTA Not Progressing 01/31/24 1545 Nick Fernandez PTA Progressing Goal Note filed on 02/01/24 1525 by Nick Fernandez PTA Evaluation of progress towards goal: Physical Therapy Care Plan (Resolved) There are no resolved problems. Principal Problem: Closed fracture of right hip, initial encounter ([facility]) Active Problems: Myah-prosthetic fracture around prosthetic hip Associated attestation - Lindsay Infante PT - 02/01/2024 3:54 PM EDT I have reviewed and agree with this note and education documentation for this visit. * PT/OT/THERMAL SURFACING MACHINE OPERATOR - MALATHI Nielsen/Lanie - 02/01/2024 1:29 PM EDT Occupational Therapy Treatment Discharge Recommendations OT Recommendations : Inpatient Rehab Inpatient Rehab Criteria: All inpatient rehab criteria expected to be met (pt. would benefit from further IPR to improve strenght, endurance and balance for ADL/mobilty tasks.) 6 Clicks: Daily Activity Putting on and taking off regular lower body clothing?: A lot Bathing (including washing, rinsing, drying)?: A lot Toileting, which includes using toilet, bedpan or urinal?: A lot Putting on and taking off regular upper body clothing?: A little Taking care of personal grooming such as brushing teeth?: None Eating meals?: None Scoring Daily Activity Raw Score: 17 [facility] G Code Modifier: CK OT Treatment/Interventions: ADL retraining, Functional transfer training, LE strengthening/ROM, UE strengthening/ROM, Endurance training, Patient/family training, Equipment eval/education, Balance, Bed mobility, Compensatory technique education, Functional activities OT Frequency: Twice a Day Assessment Patient Assessment Patient Response to Treatment: Slow progress, decreased activity tolerance Visit RN Communication: Yes Medical Record Reviewed: Yes OT Type of Visit: Treatment Precautions Activity: Up to chair TID and ambulate BID Equipment: gait belt, RW Weight Bearing Status: WBAT Rt LE Telemetry/Paper Machine Back Tender: Yes Oxygen Used: room air Other: fall risk Pain Assessment Pain Assessment: 0-10 Pain Score: 8 Pain Type: Acute pain, Surgical pain Pain Location: Hip, Leg Pain Orientation: Right Pain Descriptors: Sharp, Shooting Pain Frequency: Constant/continuous Pain Intervention(s): Repositioned, Ambulation/increased activity Response to Interventions: Quiet, No grimacing ADL / IADL Footwear Assistance: Total assist Footwear Deficit: R sock, L sock, Don/doff compression hose Other: pt. required total A to don/doff hospital socks and joseluis hose. Home Management - IADL Other: pt. required total A to don/doff hospital socks and joseluis hose. Hearing / Speech / Vision Hearing: Within Functional Limits Speech: Within Functional Limits Current Vision: Wears glasses only for reading Cognition Orientation Level: Oriented X4 Other: pt. very anxious - requires increased time/effort to complete all tasks. Bed Mobility Supine to Sit: Mod assist (of 2) Sit to Supine: Unable to assess Other: with HOB elevated - required mod A for trunk support/RLE to get OOB with increased time/effort to complete Pt. very slow and guarded d/t high pain level. Pt. left sitting in chair at end of tx. session with call light in reach, tray table near and RN aware. Transfers Sit to Stand: Min assist (of 2) Stand to Sit: Min assist (of 2) Bed to Chair: Min assist (of 2) Other: cues for proper hand and RLE placement. - no c/o dizziness noted. Gait Gait Assistance: Min assist (of 2) Assistive Device: Rolling walker Gait Distance: Short distance of 4 feet. Other: pt. very slow/guarded to increased pain. D/t increased difficulty - chair brought directly behind pt. for safety. Balance Sitting Balance: Static: Fair (+) Sitting Balance: Dynamic: Fair Standing Balance: Static: Fair (-) Standing Balance: Dynamic: Poor Other: pt sat unsupported for approx. 10 minutes prior to intiial stand working on sitting balance/endurance and trunk control. Activity Tolerance Endurance: Tolerates >30 minutes activity with rest breaks Other: rest breaks as needed Plan Occupational Therapy Care Plan Occupational Therapy Care Plan (Active) Template: OT - Occupational Therapy Problem: Activity Tolerance Dates: Start: 01/31/24 Disciplines: OT Goal: Tolerate > 30 minutes of activity WITHOUT rest breaks Dates: Start: 01/31/24 Expected End: 02/28/24 Description: Goal Description: Disciplines: OT Outcomes Date/Time User Outcome 02/01/24 1328 Azul Medrano SERVIN/L Not Progressing 01/31/24 1609 Azul Medrano SERVIN/L Progressing Goal Note filed on 02/01/24 1328 by MALATHI Nielsen/Lanie Evaluation of progress towards goal: Problem: Bed Mobility Dates: Start: 01/31/24 Disciplines: OT Goal: Patient will perform bed mobility with Modified [place] Dates: Start: 01/31/24 Expected End: 02/28/24 Description: Goal Description: Disciplines: OT Outcomes Date/Time User Outcome 02/01/24 1328 CHARU NielsenA/Lanie Progressing Goal Note filed on 02/01/24 1328 by NALLELY Nielsen Evaluation of progress towards goal: Problem: Functional Mobility Dates: Start: 01/31/24 Disciplines: OT Goal: Patient will perform functional mobility with Modified [place] Dates: Start: 01/31/24 Expected End: 02/28/24 Description: Goal Description: Disciplines: OT Outcomes Date/Time User Outcome 02/01/24 1328 CHARU NielsenA/Lanie Not Progressing 01/31/24 1609 CHARU NielsenA/Lanie Progressing Goal Note filed on 02/01/24 1328 by NALLELY Nielsen Evaluation of progress towards goal: Problem: Other (Customize) Dates: Start: 01/31/24 Disciplines: OT Goal: Improve Dates: Start: 01/31/24 Expected End: 02/28/24 Description: Goal Description: Complete ADLs [place] with AE/DME Disciplines: OT Problem: Sitting Balance Dates: Start: 01/31/24 Disciplines: OT Goal: Improve balance to good Dates: Start: 01/31/24 Expected End: 02/28/24 Description: Static Dynamic Disciplines: OT Outcomes Date/Time User Outcome 02/01/24 1328 Azul Medrano SERVIN/L Not Progressing 01/31/24 1609 CHARU NielsenA/Lanie Progressing Goal Note filed on 02/01/24 1328 by NALLELY Nielsen Evaluation of progress towards goal: Problem: Standing Balance Dates: Start: 01/31/24 Disciplines: OT Goal: Improve balance to good Dates: Start: 01/31/24 Expected End: 02/28/24 Description: Static Dynamic Disciplines: OT Outcomes Date/Time User Outcome 02/01/24 1328 MALATHI Nielsen/Lanie Not Progressing 01/31/24 1609 NALLELY Nielsen Progressing Goal Note filed on 02/01/24 1328 by NALLELY Nielsen Evaluation of progress towards goal: Problem: Strength Dates: Start: 01/31/24 Disciplines: OT Goal: Improve strength Dates: Start: 01/31/24 Expected End: 02/28/24 Description: Of extremity/ location: Tolerate bilat UE exercises to increase strength and endurancefor self care tasks To facilitate: Disciplines: OT Outcomes Date/Time User Outcome 01/31/24 1609 NALLELY Nielsen Not Progressing Goal Note filed on 01/31/24 1609 by NALLELY Nielsen Evaluation of progress towards goal: Problem: Transfers Dates: Start: 01/31/24 Disciplines: OT Goal: Patient will perform transfers with Modified [place] Dates: Start: 01/31/24 Expected End: 02/28/24 Description: Goal Description: Disciplines: OT Outcomes Date/Time User Outcome 02/01/24 1328 MALATHI Nielsen/Lanie Not Progressing 01/31/24 1609 NALLELY Nielsen Progressing Goal Note filed on 02/01/24 1328 by NALLELY Nielsen Evaluation of progress towards goal: Occupational Therapy Care Plan (Resolved) There are no resolved problems. Principal Problem: Closed fracture of right hip, initial encounter ([facility]) Active Problems: Myah-prosthetic fracture around prosthetic hip Associated attestation - Ludy Ireland OTR/L - 02/01/2024 2:58 PM EDT I have reviewed and agree with this note and education documentation for this visit. * PT/OT/THERMAL SURFACING MACHINE OPERATOR - Nick Fernandez PTA - 02/01/2024 11:57 AM EDT Physical Therapy (P) Treatment Discharge Recommendations PT Recommendations: (P) Inpatient Rehab Inpatient Rehab Criteria: (P) All inpatient rehab criteria expected to be met 6 Clicks: Basic Mobility Turning from your back to your side while in a flat bed without using bed rails?: A lot Moving from lying on your back to sitting on side of flat bed without using bed rails?: A lot Moving to and from bed to a chair (including w/c)?: A lot Standing up from a chair using your arms (e.g. w/c or bedside chair)?: A lot To walk in hospital room?: A lot Climbing 3-5 steps with a railing?: Total Scoring 6 Clicks: Basic Mobility Raw Score: 11 [facility] G Code Modifier: CL Patient Response to Treatment: (P) Slow progress, decreased activity tolerance Assessment Patient Assessment Patient Response to Treatment: (P) Slow progress, decreased activity tolerance Visit RN Communication: (P) Yes Medical Record Reviewed: (P) Yes PT Type of Visit: (P) Treatment Precautions Activity: (P) Up to chair TID and ambulate BID Equipment: (P) gait belt, RW Weight Bearing Status: (P) WBAT Rt LE Telemetry/Paper Machine Back Tender: (P) Yes Oxygen Used: (P) room air Other: (P) fall risk Pain Assessment Pain Assessment: (P) 0-10 Pain Score: (P) 8 Pain Type: (P) Acute pain, Surgical pain Pain Location: (P) Hip, Leg Pain Orientation: (P) Right Pain Radiating Towards: (P) to knee Pain Intervention(s): (P) Cold applied, Repositioned, Ambulation/increased activity Bed Mobility Supine to Sit: (P) Mod assist (x2) Sit to Supine: (P) Unable to assess (pt left sititng up in bedside chair with light and tray near.) Other: (P) HOB elevated approx. 35 , assist for trunk and RLE movement, increased pain with movement. Transfers Sit to Stand: (P) Min assist (x2) Stand to Sit: (P) Min assist (x2) Bed to Chair: (P) Min assist (x2, assist for RLE advancement) Other: (P) cues for proper hand and RLE placement. Gait Base of Support: (P) Within Functional Limits Pattern: (P) Decreased jesusita, Antalgic gait, R Decreased heel strike, L Decreased heel strike, R Decreased foot clearance, L Decreased foot clearance, Forward trunk, R Decreased stance time, R Flexed knee Gait Assistance: (P) Min assist (x2) Assistive Device: (P) Rolling walker Gait Distance: (P) 4', chair brought to pt d/t immense pain Limiting Factors to Gait: (P) Pain Other: (P) assist for RLE advancement Balance Sitting Balance: Static: (P) Fair (+) Sitting Balance: Dynamic: (P) Fair Standing Balance: Static: (P) Fair (-) Standing Balance: Dynamic: (P) Poor Other: (P) pt sat unsupported for approx. 10 minutes prior to intiial stand. Activity Tolerance Endurance: (P) Tolerates >30 minutes activity with rest breaks Other: (P) rest breaks as needed Plan Physical Therapy Care Plan Physical Therapy Care Plan (Active) Template: PT - Physical Therapy Problem: Activity Tolerance Dates: Start: 01/31/24 Disciplines: PT Goal: Tolerate > 30 minutes of activity WITH rest breaks Dates: Start: 01/31/24 Expected End: 02/14/24 Description: Goal Description: Disciplines: PT Outcomes Date/Time User Outcome 02/01/24 1140 Nick Fernandez PTA Progressing 01/31/24 1545 Nick Fernandez PTA Progressing Goal Note filed on 02/01/24 1140 by Nick Fernandez PTA Evaluation of progress towards goal: Problem: Bed Mobility Dates: Start: 01/31/24 Disciplines: PT Goal: Patient will perform bed mobility with Minimum Assist Dates: Start: 01/31/24 Expected End: 02/14/24 Description: Goal Description: Disciplines: PT Outcomes Date/Time User Outcome 02/01/24 1140 Nick Fernandez PTA Progressing Goal Note filed on 02/01/24 1140 by Nick Fernandez PTA Evaluation of progress towards goal Problem: Gait Dates: Start: 01/31/24 Disciplines: PT Goal: Patient will perform gait with Contact Guard Dates: Start: 01/31/24 Expected End: 02/14/24 Description: With__rw__,__150__feet Goal Description: Disciplines: PT Outcomes Date/Time User Outcome 02/01/24 1140 Nick Fernandez PTA Not Progressing 01/31/24 1545 Nick Fernandez PTA Progressing Goal Note filed on 02/01/24 1140 by Nick Fernandez PTA Evaluation of progress towards goal: Problem: Stairs/Curb Dates: Start: 01/31/24 Disciplines: PT Goal: Patient will perform stairs/curb with Minimum Assist Dates: Start: 01/31/24 Expected End: 02/14/24 Description: ___1__steps,_rw no____hand rails Goal Description: Disciplines: PT Problem: Standing Balance Dates: Start: 01/31/24 Disciplines: PT Goal: Improve balance to good Dates: Start: 01/31/24 Expected End: 02/14/24 Description: Static Dynamic- with support of rw Disciplines: PT Outcomes Date/Time User Outcome 02/01/24 1140 Nick Fernandez PTA Not Progressing 01/31/24 1545 Nick Fernandez PTA Progressing Goal Note filed on 02/01/24 1140 by Nick Fernandez PTA Evaluation of progress towards goal: Problem: Strength Dates: Start: 01/31/24 Disciplines: PT Goal: Improve strength Dates: Start: 01/31/24 Expected End: 02/14/24 Description: Of extremity/ location:Complete 20 reps bilat LE ex's To facilitate: Disciplines: PT Outcomes Date/Time User Outcome 02/01/24 1140 Nick Fernandez PTA Not Progressing 01/31/24 1545 Nick Fernandez PTA Progressing Goal Note filed on 02/01/24 1140 by Nick Fernandez PTA Evaluation of progress towards goal: Problem: Transfers Dates: Start: 01/31/24 Disciplines: PT Goal: Patient will perform transfers with Contact Guard Dates: Start: 01/31/24 Expected End: 02/14/24 Description: Goal Description: Disciplines: PT Outcomes Date/Time User Outcome 02/01/24 1140 Nick Fernandez PTA Not Progressing 01/31/24 1545 Nick Fernandez PTA Progressing Goal Note filed on 02/01/24 1140 by Nick Fernandez PTA Evaluation of progress towards goal: Physical Therapy Care Plan (Resolved) There are no resolved problems. Principal Problem: Closed fracture of right hip, initial encounter ([facility]) Active Problems: Myah-prosthetic fracture around prosthetic hip Associated attestation - Lindsay Infante, PT - 02/01/2024 3:54 PM EDT I have reviewed and agree with this note and education documentation for this visit. * Discharge Planning Note - EJWEL Crenshaw - 02/01/2024 11:36 AM EDT DISCHARGE PLANNING NOTE DC plan IPR: [facility] can accept pt back. No auth needed. W/C tx cert in dc packet. Barriers: pain control on IV pain meds, Rt leg swollen - JEWEL Crenshaw 02/01/24 11:37 AM * Significant Event - HUBERT Paul - 02/01/2024 10:44 AM EDT I was asked by the medicine service to evaluate the patient. Patient has increased swelling on his right thigh, and they were concerns of possible compartment syndrome. Patient is sitting in chair at bedside with the hip flexed at 90 . 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 He also states that he was up with physical therapy today. On exam patient was able to flex extend the digits of his right foot. He was able to plantar flex and dorsiflex. His calf is soft. Patient resists range of motion of his knee secondary to pain. His right thigh as significantly swollen as compared to his left. His compartments are soft. He has bruising on the posterior lateral aspect of his distal thigh. His dressing is clean dry and intact. Assessment: Patient is postop day 2 status post IM nail for intertrochanteric/subtrochanteric hip fracture. No signs of compartment syndrome at this time. Plan: Discussed with Dr. Figueroa. No orthopedic intervention planned at this time. HUBERT Patel PA-C 02/01/24 1055 * Plan of Care - Antionette Smith RN - 02/01/2024 10:19 AM EDT Problem: Pain Goal: Patient goal is pain score less than 4, able to rest, and participant in treatment plan as appropriate Description: INTERVENTIONS: 1. Encourage patient or legal charter representative to report early pain and ask for pain medicine when needed 2. Assess pain using appropriate pain scale and include the scale used when documenting 3. Administer analgesics based on type and severity of pain and evaluate response within appropriate time frame 4. Implement non-pharmacological measures as appropriate and evaluate response 5. Consider cultural and social influences on pain and pain management 6. Notify LIP if interventions ineffective or patient reports new pain 7. Monitor vital signs including pulse ox, end-tidal CO2 based on pain intervention 8. Reassess pain per policy 9. Teach patient or legal charter representative interventions for comforting Outcome: Progressing Note: Evaluation of progress towards goal: improved pain control with PRN medications Problem: Safety Goal: Patient will be injury free during hospitalization Description: INTERVENTIONS: 1. Assess patient's risk for falls and implement fall prevention plan of care per policy 2. Provide and maintain a safe environment 3. Proper use of double Identifiers 4. Medication administration using the 5 rights 5. Hand hygiene 6. Specimens are labeled at the bedside 7. Instruct patient/ patient charter representative about use of safety devices 8. Include patient/ patient charter representative in decisions related to safety Outcome: Progressing Note: Evaluation of progress towards goal: free from falls Problem: Glucose Imbalance Goal: Clinical indication of glucose balance is achieved Description: Patient's goal is: INTERVENTIONS 1. Monitor blood glucose levels as ordered 2. Administer medications as ordered 3. Notify physician of ineffective treatment plan Outcome: Progressing Note: Evaluation of progress towards goal: blood glucose stable * Plan of Care - Santi Parks RN - 01/31/2024 7:30 PM EDT Problem: Pain Goal: Patient goal is pain score less than 4, able to rest, and participant in treatment plan as appropriate Description: INTERVENTIONS: 1. Encourage patient or legal charter representative to report early pain and ask for pain medicine when needed 2. Assess pain using appropriate pain scale and include the scale used when documenting 3. Administer analgesics based on type and severity of pain and evaluate response within appropriate time frame 4. Implement non-pharmacological measures as appropriate and evaluate response 5. Consider cultural and social influences on pain and pain management 6. Notify LIP if interventions ineffective or patient reports new pain 7. Monitor vital signs including pulse ox, end-tidal CO2 based on pain intervention 8. Reassess pain per policy 9. Teach patient or legal charter representative interventions for comforting Outcome: Progressing Note: Evaluation of progress towards goal: pain assessed and analgesics administered as needed, nonpharmacological measures implemented as needed. Problem: Safety Goal: Patient will be injury free during hospitalization Description: INTERVENTIONS: 1. Assess patient's risk for falls and implement fall prevention plan of care per policy 2. Provide and maintain a safe environment 3. Proper use of double Identifiers 4. Medication administration using the 5 rights 5. Hand hygiene 6. Specimens are labeled at the bedside 7. Instruct patient/ patient charter representative about use of safety devices 8. Include patient/ patient charter representative in decisions related to safety Outcome: Progressing Note: Evaluation of progress towards goal: Safety measures initiated/maintained. Pt remains safe from harm/injury/falls Problem: Infection Goal: Absence of infection during hospitalization Description: Interventions: 1. Assess and monitor for signs and symptoms of infection 2. Monitor lab/diagnostic results 3. Monitor all insertion sites i.e., indwelling lines, tubes and drains 4. Monitor endotracheal (as able) and nasal secretions for changes in amount and color 5. Administer medications as ordered 6. Instruct and encourage patient and family to use good hand hygiene technique 7. Identify and instruct patient/patient charter representative in use of appropriate isolation precautionsfor identified infection/symptoms 8. Provide and discuss with patient/patient charter representative on educational MDRO sheet 9. Encourage and monitor nutritional status daily and consult maxillofacial pathology if indicated 10. Implement neutropenic guidelines as needed 11. Review exposure to history of communicable disease and recent travel history on admission 12. Encourage annual influenza vaccine 13. Encourage pneumonia vaccine Outcome: Progressing Note: Evaluation of progress towards goal: Pt afebrile at this time, continue to monitor for signs infection Problem: Knowledge Deficit Goal: Patient/patient charter representative demonstrates understanding of disease process, treatment plan,medications, and discharge instructions Description: INTERVENTIONS 1. Complete learning assessment and assess knowledge base 2. Provide teaching at level of understanding 3. Provide teaching via preferred learning method(s) Outcome: Progressing Note: Evaluation of progress towards goal: POC discussed with patient. Questions answered PRN. * PT/OT/THERMAL SURFACING MACHINE OPERATOR - NALLELY Nielsen - 01/31/2024 4:10 PM EDT Occupational Therapy Treatment Discharge Recommendations OT Recommendations : Inpatient Rehab Inpatient Rehab Criteria: All inpatient rehab criteria expected to be met (pt. would benefit from further IPR to improve strength, endurance and balance for ADL/mobility tasks and return to PLOF.) 6 Clicks: Daily Activity Putting on and taking off regular lower body clothing?: A lot Bathing (including washing, rinsing, drying)?: A lot Toileting, which includes using toilet, bedpan or urinal?: A lot Putting on and taking off regular upper body clothing?: A little Taking care of personal grooming such as brushing teeth?: A little Eating meals?: None Scoring Daily Activity Raw Score: 16 CMS G Code Modifier: CK 01/31/24 1406 UE ROM UE ROM exercises performed? Yes Shoulder shrugs x Shoulder flexion/extension x (limited ROM) Shoulder horizontal abduction/adduction x (limited ROM) Elbow flexion/extension x Forearm supination/pronation x Other BUE AROM as nabil. Repetitions 10-15 OT Treatment/Interventions: ADL retraining, Functional transfer training, LE strengthening/ROM, UE strengthening/ROM, Endurance training, Patient/family training, Equipment eval/education, Balance, Bed mobility, Compensatory technique education, Functional activities OT Frequency: Twice a Day Assessment Patient Assessment Patient Response to Treatment: Progressing toward goals Visit RN Communication: Yes Medical Record Reviewed: Yes OT Type of Visit: Treatment Precautions Activity: Up to chair TID and ambulate BID Equipment: gait belt, RW Weight Bearing Status: WBAT Rt LE Telemetry/Paper Machine Back Tender: Yes Oxygen Used: room air Other: fall risk Pain Assessment Pain Assessment: 0-10 Pain Score: 9 Pain Type: Acute pain, Surgical pain Pain Location: Hip, Knee Pain Orientation: Right Pain Descriptors: Sharp, Shooting, Discomfort Pain Frequency: Constant/continuous Pain Intervention(s): Repositioned, Ambulation/increased activity, Cold applied Response to Interventions: Quiet Hearing / Speech / Vision Hearing: Within Functional Limits Speech: Within Functional Limits Current Vision: Wears glasses only for reading Cognition Orientation Level: Oriented X4 Bed Mobility Other: did not test - pt. sitting in chair upon arrival and left in chair at end of tx. session. Call light in reach, tray table near and RN aware. Transfers Sit to Stand: Min assist (of 2) Stand to Sit: Min assist (of 2) Other: pt. required cues for technique and proper hand placement prior to sit/stand - fair carryover noted. Slow and guarded d/t pain level - no c/o dizziness noted. Pt. demo good eccentric control when completing stand -> sit. Gait Gait Assistance: Min assist (of 2) Assistive Device: Rolling walker Gait Distance: Short distance of 4 feet. Other: Pt. slow and slightly unsteady - close chair follow for safety. Required cues for sequencingand safety with manuevering RW. Difficulty noted advancing BLE foward d/t increased pain level. Balance Sitting Balance: Static: Fair (+) Sitting Balance: Dynamic: Fair Standing Balance: Static: Fair (-) Standing Balance: Dynamic: Poor Other: with UE support on RW in standing - mild unsteadiness, no LOB noted. Sat unsupported for ther ex approx. 20 minutes working on sitting balance/endurance and core strength. Activity Tolerance Endurance: Tolerates >30 minutes activity with rest breaks Other: rest breaks as needed Plan Occupational Therapy Care Plan Occupational Therapy Care Plan (Active) Template: OT - Occupational Therapy Problem: Activity Tolerance Dates: Start: 01/31/24 Disciplines: OT Goal: Tolerate > 30 minutes of activity WITHOUT rest breaks Dates: Start: 01/31/24 Expected End: 02/28/24 Description: Goal Description: Disciplines: OT Outcomes Date/Time User Outcome 01/31/24 1609 NALLELY Nielsen Progressing Goal Note filed on 01/31/24 1609 by NALLELY Nielsen Evaluation of progress towards goal: Problem: Bed Mobility Dates: Start: 01/31/24 Disciplines: OT Goal: Patient will perform bed mobility with Modified [place] Dates: Start: 01/31/24 Expected End: 02/28/24 Description: Goal Description: Disciplines: OT Problem: Functional Mobility Dates: Start: 01/31/24 Disciplines: OT Goal: Patient will perform functional mobility with Modified [place] Dates: Start: 01/31/24 Expected End: 02/28/24 Description: Goal Description: Disciplines: OT Outcomes Date/Time User Outcome 01/31/24 1609 NALLELY Nielsen Progressing Goal Note filed on 01/31/24 1609 by NALLLEY Nielsen Evaluation of progress towards goal: Problem: Other (Customize) Dates: Start: 01/31/24 Disciplines: OT Goal: Improve Dates: Start: 01/31/24 Expected End: 02/28/24 Description: Goal Description: Complete ADLs [place] with AE/DME Disciplines: OT Problem: Sitting Balance Dates: Start: 01/31/24 Disciplines: OT Goal: Improve balance to good Dates: Start: 01/31/24 Expected End: 02/28/24 Description: Static Dynamic Disciplines: OT Outcomes Date/Time User Outcome 01/31/24 1609 NALLELY Nielsen Progressing Goal Note filed on 01/31/24 1609 by NALLELY Nielsen Evaluation of progress towards goal: Problem: Standing Balance Dates: Start: 01/31/24 Disciplines: OT Goal: Improve balance to good Dates: Start: 01/31/24 Expected End: 02/28/24 Description: Static Dynamic Disciplines: OT Outcomes Date/Time User Outcome 01/31/24 1609 NALLELY Nielsen Progressing Goal Note filed on 01/31/24 160 by NALLELY Nielsen Evaluation of progress towards goal: Problem: Strength Dates: Start: 01/31/24 Disciplines: OT Goal: Improve strength Dates: Start: 01/31/24 Expected End: 02/28/24 Description: Of extremity/ location: Tolerate bilat UE exercises to increase strength and endurancefor self care tasks To facilitate: Disciplines: OT Outcomes Date/Time User Outcome 01/31/24 1609 NALLELY Nielsen Not Progressing Goal Note filed on 01/31/24 1609 by NALLELY Nielsen Evaluation of progress towards goal: Problem: Transfers Dates: Start: 01/31/24 Disciplines: OT Goal: Patient will perform transfers with Modified [place] Dates: Start: 01/31/24 Expected End: 02/28/24 Description: Goal Description: Disciplines: OT Outcomes Date/Time User Outcome 01/31/24 1609 NALLELY Nielsen Progressing Goal Note filed on 01/31/24 1609 by NALLELY Nielsen Evaluation of progress towards goal: Occupational Therapy Care Plan (Resolved) There are no resolved problems. Principal Problem: Closed fracture of right hip, initial encounter ([facility]) Active Problems: Myah-prosthetic fracture around prosthetic hip Associated attestation - Ludy Ireland OTR/L - 02/01/2024 7:28 AM EDT I have reviewed and agree with this note and education documentation for this visit. * PT/OT/THERMAL SURFACING MACHINE OPERATOR - Nick Fernandez PTA - 01/31/2024 3:56 PM EDT Physical Therapy Treatment Discharge Recommendations PT Recommendations: Inpatient Rehab Inpatient Rehab Criteria: All inpatient rehab criteria expected to be met 6 Clicks: Basic Mobility Turning from your back to your side while in a flat bed without using bed rails?: A lot Moving from lying on your back to sitting on side of flat bed without using bed rails?: A lot Moving to and from bed to a chair (including w/c)?: A little Standing up from a chair using your arms (e.g. w/c or bedside chair)?: A little To walk in hospital room?: A lot Climbing 3-5 steps with a railing?: Total Scoring 6 Clicks: Basic Mobility Raw Score: 13 [facility] G Code Modifier: CK Patient Response to Treatment: Slow progress, decreased activity tolerance Assessment Patient Assessment Patient Response to Treatment: Slow progress, decreased activity tolerance Visit RN Communication: Yes Medical Record Reviewed: Yes PT Type of Visit: Treatment Precautions Activity: Up to chair TID and ambulate BID Equipment: gait belt, RW Weight Bearing Status: WBAT Rt LE Telemetry/Paper Machine Back Tender: Yes Oxygen Used: room air Other: fall risk 01/31/24 1405 LE Seated LE seated exercises performed? Yes Ankle pumps x Long arc quads x Hip abduction/adduction x Other verbal and visual cues for proper technique Repetitions 7-10x BLE within tolerance/available ROM Pain Assessment Pain Assessment: 0-10 Pain Score: 9 Pain Type: Acute pain, Surgical pain Pain Location: Hip, Knee Pain Orientation: Right Pain Intervention(s): Repositioned, Ambulation/increased activity, Cold applied Response to Interventions: Pain unchanged, Quiet, No grimacing Bed Mobility Other: NT, pt found and left sitting up in bedside chair with light and tray near. Transfers Sit to Stand: (x2) Stand to Sit: Min assist (x2) Other: verbal cues for proper hand placement and RLE placement. Gait Base of Support: Within Functional Limits Pattern: Decreased jesusita, Antalgic gait, R Decreased heel strike, L Decreased heel strike, R Decreased foot clearance, L Decreased foot clearance, Forward trunk, R Decreased stance time, R Flexed knee Gait Assistance: Min assist (x2) Assistive Device: Rolling walker Gait Distance: 4' Limiting Factors to Gait: Fatigue, Weakness, Pain Other: cues for posture and safety. Balance Sitting Balance: Static: Fair Sitting Balance: Dynamic: Fair Standing Balance: Static: Fair (-) Standing Balance: Dynamic: Poor (+) Other: BUE support using RW. Activity Tolerance Endurance: Tolerates >30 minutes activity with rest breaks Other: rest breaks as needed Plan Physical Therapy Care Plan Physical Therapy Care Plan (Active) Template: PT - Physical Therapy Problem: Activity Tolerance Dates: Start: 01/31/24 Disciplines: PT Goal: Tolerate > 30 minutes of activity WITH rest breaks Dates: Start: 01/31/24 Expected End: 02/14/24 Description: Goal Description: Disciplines: PT Outcomes Date/Time User Outcome 01/31/241544 Nick Fernandez PTA Progressing Goal Note filed on 01/31/24 154 by Nick Fernandez PTA Evaluation of progress towards goal: Problem: Bed Mobility Dates: Start: 01/31/24 Disciplines: PT Goal: Patient will perform bed mobility with Minimum Assist Dates: Start: 01/31/24 Expected End: 02/14/24 Description: Goal Description: Disciplines: PT Problem: Gait Dates: Start: 01/31/24 Disciplines: PT Goal: Patient will perform gait with Contact Guard Dates: Start: 01/31/24 Expected End: 02/14/24 Description: With__rw__,__150__feet Goal Description: Disciplines: PT Outcomes Date/Time User Outcome 01/31/24 154 Nick Fernandez PTA Progressing Goal Note filed on 01/31/24 154 by Nick Fernandez PTA Evaluation of progress towards goal: Problem: Stairs/Curb Dates: Start: 01/31/24 Disciplines: PT Goal: Patient will perform stairs/curb with Minimum Assist Dates: Start: 01/31/24 Expected End: 02/14/24 Description: ___1__steps,_rw no____hand rails Goal Description: Disciplines: PT Problem: Standing Balance Dates: Start: 01/31/24 Disciplines: PT Goal: Improve balance to good Dates: Start: 01/31/24 Expected End: 02/14/24 Description: Static Dynamic- with support of rw Disciplines: PT Outcomes Date/Time User Outcome 01/31/24 1545 Nick Fernandez PTA Progressing Goal Note filed on 01/31/24 1545 by Nick Fernandez PTA Evaluation of progress towards goal: Problem: Strength Dates: Start: 01/31/24 Disciplines: PT Goal: Improve strength Dates: Start: 01/31/24 Expected End: 02/14/24 Description: Of extremity/ location:Complete 20 reps bilat LE ex's To facilitate: Disciplines: PT Outcomes Date/Time User Outcome 01/31/24 1545 Nick Fernandez PTA Progressing Goal Note filed on 01/31/24 1545 by Nick Fernandez PTA Evaluation of progress towards goal: Problem: Transfers Dates: Start: 01/31/24 Disciplines: PT Goal: Patient will perform transfers with Contact Guard Dates: Start: 01/31/24 Expected End: 02/14/24 Description: Goal Description: Disciplines: PT Outcomes Date/Time User Outcome 01/31/24 1545 Nick Fernandez PTA Progressing Goal Note filed on 01/31/24 1545 by Nick Fernandez PTA Evaluation of progress towards goal: Physical Therapy Care Plan (Resolved) There are no resolved problems. Principal Problem: Closed fracture of right hip, initial encounter ([facility]) Active Problems: Myah-prosthetic fracture around prosthetic hip Associated attestation - Lindsay Infante, PT - 01/31/2024 4:14 PM EDT I have reviewed and agree with this note and education documentation for this visit. * Discharge Planning Note - Alexandra Eric - 01/31/2024 3:48 PM EDT DISCHARGE PLANNING NOTE Referral sent to [facility] P# [phone] [calling report];/[facility] (P# [calling report]; F# ) * Discharge Planning Note - JEWEL Crenshaw - 01/31/2024 3:13 PM EDT Images from the original note were not included. DISCHARGE PLANNING NOTE SW met with patient introduce self & role. [facility]. Pt underwent IM nail on 01/18/24 and pt discharged to IP rehab on 01/22/24. Pt was transferred back to [facility] on 01/28 after fall at rehab facility. Pt was found to have periprosthetic hip fracture. Pt underwent another IM nail & hardware removal on 01/30/24. Patient was living alone in one story home with 1 step prior to initial admit with fall. Pt reportshe was up with walker at rehab facility and was doing well prior to the fall. Pt denied concern getting medications. No alcohol, tobacco or illicit drug use. DC plan will be IP rehab. PT/OT and PM&R all rec IP rehab. SW discussed with pt and pt would like to return to [facility] rehab. Referral was sent, await confirmation they can accept pt back. Services Requested: Services Requested Acute Rehab Name: [facility]. Acute Rehab . Patient choice offered: Other (comment) (pt current with provider) List Provided: Other (comment) Initial DC Assessment Completed: Yes Patient Goals: Goals: Goals <enter goal here> (pt-stated) Evaluation of progress towards goal: pt plans to return to [facility] rehab at mt to improve mobility and get home (pt-stated) Evaluation of progress towards goal: Participating in therapy - JEWEL Crenshaw 01/31/24 3:18 PM * PT/OT/THERMAL SURFACING MACHINE OPERATOR - Lindsay Naresh, PT - 01/31/2024 1:02 PM EDT Physical Therapy Evaluation Discharge Recommendations PT Recommendations: Inpatient Rehab Inpatient Rehab Criteria: All inpatient rehab criteria expected to be met Therapy Plan Need for skilled Physical Therapy to address deficits in functional mobility due to a status decline resulting from re-hospitalization. On 01/17 pt underwent an IM nailing or a Rt IT fractures s/p fall. Pt was discharged to inpatient rehab on 01/21. Pt sustained a fall at rehab on 01/26 and was found to have a periprosthetic subtrochanteric fracture. Pt was seen in ortho office on 01/28 and was sent to the ED. On 01/29 pt underwent removal hardware Rt femur/ IM nailing Rt IT subtrochanteric hip fx. Pt is WBAT Rt LE. Pt needs increased time to complete tasks and is very vocal about his pain while completing functional mobility. Chief Complaint Patient presents with Fall Evaluation of Abnormal Diagnostic Test Past Medical History: Diagnosis Date Asthma Back pain Chronic cough from lisinopril Chronic pain disorder Colon cancer ([facility]) COPD (chronic obstructive pulmonary disease) ([facility]) Depression Diabetes mellitus type 2, controlled ([facility]) Fibromyalgia, primary Fracture of right hip, closed, initial encounter ([facility]) 01/17/2024 GERD (gastroesophageal reflux disease) Hyperlipidemia Hypertension Insulin-treated type 2 diabetes mellitus ([facility]) Joint pain Kidney stones Liver disease Low back pain Neck pain Obesity Osteoarthritis Visual impairment Past Surgical History: Procedure Laterality Date BACK SURGERY COLON SURGERY resection, 2018, [facility] DAVINCI REPAIR HERNIA VENTRAL N/A 10/27/2021 Performed by Ridge Cedillo MD at [facility] DENTAL SURGERY pt had all teeth removed HERNIA REPAIR x's 2 INSERTION INTRAMEDULLARY NAIL FEMUR Right 01/30/2024 Performed by Ang Figueroa MD at [facility] INSERTION INTRAMEDULLARY NAIL FEMUR-TFNA HIP FX Right 01/18/2024 Performed by Ang Figueroa MD at [facility] ORTHOPEDIC SURGERY 2008 foot, infected foot REMOVAL HARDWARE INTRAMEDULLARY NAIL/KATERYNA FEMUR Right 01/30/2024 Performed by Ang Figueroa MD at [facility] 6 Clicks: Basic Mobility Turning from your back to your side while in a flat bed without using bed rails?: A lot Moving from lying on your back to sitting on side of flat bed without using bed rails?: A lot Moving to and from bed to a chair (including w/c)?: A little Standing up from a chair using your arms (e.g. w/c or bedside chair)?: A little To walk in hospital room?: A lot Climbing 3-5 steps with a railing?: Total Scoring 6 Clicks: Basic Mobility Raw Score: 13 CMS G Code Modifier: CK Recommended Consults: PM&R consult PT Treatment/Interventions: Functional transfer training, LE strengthening/ROM, Endurance training,Patient/family training, Equipment eval/education, Balance, Stair training, Bed mobility, Gait training, Functional activities PT Frequency: Twice a Day PT Duration: LOS Patient Response to Treatment: Tolerated evaluation without adverse reaction Assessment Patient Assessment Therapy Problem List: Decreased balance, Decreased endurance, Decreased mobility, Decreased safe judgement during ADL, Decreased LE ROM, Decreased LE strength Patient Response to Treatment: Tolerated evaluation without adverse reaction Mood/Affect: Appropriate for circumstances Rehab Prognosis: With continued PT status post acute discharge, Good Visit RN Communication: Yes Medical Record Reviewed: Yes PT Type of Visit: Evaluation Precautions Activity: Up to chair TID and ambulate BID Equipment: gait belt, RW Weight Bearing Status: WBAT Rt LE Telemetry/Paper Machine Back Tender: Yes Other: fall risk Pain Assessment Pain Assessment: 0-10 Pain Score: 8 Pain Type: Acute pain, Surgical pain Pain Location: Hip, Knee Pain Orientation: Right Pain Radiating Towards: knee Pain Intervention(s): Cold applied, Repositioned, Ambulation/increased activity Home Living Type of Home: Apartment (1st floor) Home Layout: One level Stairs to Enter: 1 Hand Rails: None Stairs in Home: 0 Bathroom Shower/Tub: Tub/shower unit Bathroom Toilet: Standard Bathroom Equipment: Hand-held shower, Non skid shower floor, Shower chair Home Equipment: Rolling walker, 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 He had been at [facility] just prior to this adm and amb short distances on his own with rw per his report. Hearing / Speech / Vision Hearing: Within Functional Limits Speech: Within Functional Limits Current Vision: Wears glasses only for reading Cognition Orientation Level: Oriented X4 Sensation Overall Sensation Status: Consistent with premorbid status (Pt reports neuropathy in both feet and recently started in his hands as well. Per pt he was in process of getting EMG done.) Bed Mobility Supine to Sit: Max assist (x 2 with assist at the trunk and with LE's. Used rail and HOB up slightly.) Sit to Supine: (NT this session as pt up in chair with call light at end of session- RN aware) Other: Increased time and effort Transfers Sit to Stand: Min assist (x 2) Stand to Sit: Min assist (x 2, physical assist to advance LLE out as he sat down.) Bed to Chair: Min assist (x 2) Other: Cues for hand placement and safe technique. Pt currently having difficulty flexing Rt knee Gait Gait Assistance: Min assist (x 2. Assist for safety and safe walker use) Assistive Device: Rolling walker Gait Distance: 3' bed to chair -pt had difficulty accepting weight on RLE. Pt stated that his neck was hurting and neuropathy in his hands made it difficult to grasp rw. Limiting Factors to Gait: Fatigue, Pain Balance Sitting Balance: Static: Fair (Pt had difficulty initially flexing at his hips to sit and was very guarded with strong posterior lean. Pt needed both tactile and verbal cues to place his feet on the floor.) Sitting Balance: Dynamic: Poor Standing Balance: Static: Fair (-) Standing Balance: Dynamic: Poor Other: Standing balance with RW for support RLE Strength RLE Overall Strength: (Pt not able to move against gravity at the hip or knee, DF/PF at least 3/5.) LLE Strength LLE Overall Strength: Within Functional Limits - able to perform ADL tasks with strength Activity Tolerance Endurance: Tolerates >30 minutes activity with rest breaks Plan Physical Therapy Care Plan Physical Therapy Care Plan (Active) Template: PT - Physical Therapy Problem: Activity Tolerance Dates: Start: 01/31/24 Disciplines: PT Goal: Tolerate > 30 minutes of activity WITH rest breaks Dates: Start: 01/31/24 Expected End: 02/14/24 Description: Goal Description: Disciplines: PT Problem: Bed Mobility Dates: Start: 01/31/24 Disciplines: PT Goal: Patient will perform bed mobility with Minimum Assist Dates: Start: 01/31/24 Expected End: 02/14/24 Description: Goal Description: Disciplines: PT Problem: Gait Dates: Start: 01/31/24 Disciplines: PT Goal: Patient will perform gait with Contact Guard Dates: Start: 01/31/24 Expected End: 02/14/24 Description: With__rw__,__150__feet Goal Description: Disciplines: PT Problem: Stairs/Curb Dates: Start: 01/31/24 Disciplines: PT Goal: Patient will perform stairs/curb with Minimum Assist Dates: Start: 01/31/24 Expected End: 02/14/24 Description: ___1__steps,_rw no____hand rails Goal Description: Disciplines: PT Problem: Standing Balance Dates: Start: 01/31/24 Disciplines: PT Goal: Improve balance to good Dates: Start: 01/31/24 Expected End: 02/14/24 Description: Static Dynamic- with support of rw Disciplines: PT Problem: Strength Dates: Start: 01/31/24 Disciplines: PT Goal: Improve strength Dates: Start: 01/31/24 Expected End: 02/14/24 Description: Of extremity/ location:Complete 20 reps bilat LE ex's To facilitate: Disciplines: PT Problem: Transfers Dates: Start: 01/31/24 Disciplines: PT Goal: Patient will perform transfers with Contact Guard Dates: Start: 01/31/24 Expected End: 02/14/24 Description: Goal Description: Disciplines: PT Physical Therapy Care Plan (Resolved) There are no resolved problems. 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 - Thalia Han OTR/Lanie - 01/31/2024 11:28 AM EDT Occupational Therapy Evaluation Discharge Recommendations OT Recommendations : Inpatient Rehab Inpatient Rehab Criteria: All inpatient rehab criteria expected to be met 6 Clicks: Daily Activity Putting on and taking off regular lower body clothing?: A lot Bathing (including washing, rinsing, drying)?: A lot Toileting, which includes using toilet, bedpan or urinal?: A lot Putting on and taking off regular upper body clothing?: A little Taking care of personal grooming such as brushing teeth?: A little Eating meals?: A little Scoring Daily Activity Raw Score: 15 CMS G Code Modifier: CK Therapy Plan Need for skilled Occupational Therapy to address deficits in ADL independence and functional mobility due to a status decline resulting from hospitalization. 01/17 pt underwent an IM nailing or a Rt IT fractures s/p fall. Pt was discharged to inpatient rehab on 01/21. Pt sustained a fall at rehab on 01/26 and was found to have a periprosthetic subtrochantericfracture. Pt was seen in ortho office on 01/28 and was sent to the ED. 01/29 pt underwent removal hardware Rt femur/ IM nailing Rt IT subtrochanteric hip fx. Pt is WBAT Rt LE Scoring Daily Activity Raw Score: 15 CMS G Code Modifier: CK Past Medical History: Diagnosis Date Asthma Back pain Chronic cough from lisinopril Chronic pain disorder Colon cancer ([facility]) COPD (chronic obstructive pulmonary disease) ([facility]) Depression Diabetes mellitus type 2, controlled ([facility]) Fibromyalgia, primary Fracture of right hip, closed, initial encounter ([facility]) 01/17/2024 GERD (gastroesophageal reflux disease) Hyperlipidemia Hypertension Insulin-treated type 2 diabetes mellitus ([facility]) Joint pain Kidney stones Liver disease Low back pain Neck pain Obesity Osteoarthritis Visual impairment Past Surgical History: Procedure Laterality Date BACK SURGERY COLON SURGERY resection, 2018, [facility] DAVINCI REPAIR HERNIA VENTRAL N/A 10/27/2021 Performed by Ridge Cedillo MD at [facility] DENTAL SURGERY pt had all teeth removed HERNIA REPAIR x's 2 INSERTION INTRAMEDULLARY NAIL FEMUR Right 01/30/2024 Performed by Ang Figueroa MD at [facility] INSERTION INTRAMEDULLARY NAIL FEMUR-TFNA HIP FX Right 01/18/2024 Performed by Ang Figueroa MD at [facility] ORTHOPEDIC SURGERY 2008 foot, infected foot REMOVAL HARDWARE INTRAMEDULLARY NAIL/KATERYNA FEMUR Right 01/30/2024 Performed by Ang Figueroa MD at [facility] Chief Complaint Patient presents with Fall Evaluation of Abnormal Diagnostic Test OT Treatment/Interventions: ADL retraining, Functional transfer training, LE strengthening/ROM, UE strengthening/ROM, Endurance training, Patient/family training, Equipment eval/education, Balance, Bed mobility, Compensatory technique education, Functional activities OT Frequency: Twice a Day OT Duration: Until discharge Assessment Patient Assessment Therapy Problem List: Decreased ADL status, Decreased balance, Decreased endurance, Decreased high-level ADLs, Decreased mobility, Decreased safe judgement during ADL, Decreased self-care trans, Decreased LE strength, Decreased UE strength Patient Response to Treatment: Tolerated evaluation without adverse reaction Mood/Affect: Anxious Rehab Prognosis: Good, With continued OT status post acute discharge Visit RN Communication: Yes Medical Record Reviewed: Yes OT Type of Visit: Evaluation Precautions Activity: Up to chair TID and ambulate BID Equipment: gait belt, RW Weight Bearing Status: WBAT Rt LE Telemetry/Paper Machine Back Tender: Yes Oxygen Used: room air Other: fall risk Pain Assessment Pain Assessment: 0-10 Pain Score: 8 Pain Type: Acute pain, Surgical pain Pain Location: Hip, Knee Pain Orientation: Right Pain Radiating Towards: knee Pain Intervention(s): Cold applied, Repositioned, Ambulation/increased activity Response to Interventions: Pain unchanged, Quiet Home Living Type of Home: Apartment (1st floor) Home Layout: One level Stairs to Enter: 1 Hand Rails: None Stairs in Home: 0 Bathroom Shower/Tub: Tub/shower unit Bathroom Toilet: Standard Bathroom Equipment: Hand-held shower, Non skid shower floor, Shower chair Home Equipment: Rolling walker, Cane, Agriculture Professor Other : No AE/DME needs prior to initial injury Prior Function Lives With: Alone Receives Help From: Neighbor Level of Mobility: Independent with ADLs and functional transfers or gait Homemaking Assistance: Needs assistance Driving: Total assist Other: Pt independent at baseline except for driving. Pt has required assist for all since. ADL / IADL Hand Dominance: Right Where Assessed: Edge of bed, Chair Eating Assistance: Setup Grooming Assistance: Setup Bathing/Showering Assistance: Max assist Toilet/Commode Assistance: Max assist UE Dressing Assistance: Min assist LE Dressing Assistance: Max assist Footwear Assistance: Total assist Other: Pt limited by weakness, fatigue, decreased balance and pain. Pt pushing posteriorly while sitting EOB and does not tolerate much activity due to pain. Home Management - IADL Other: Pt limited by weakness, fatigue, decreased balance and pain. Pt pushing posteriorly while sitting EOB and does not tolerate much activity due to pain. Hearing / Speech / Vision Hearing: Within Functional Limits Speech: Within Functional Limits Current Vision: Wears glasses only for reading Cognition Orientation Level: Oriented X4 Sensation Overall Sensation Status: Consistent with premorbid status Other: Neuropathy bilat feet. Pt also has Cspine issues which results in intermittent numbness in UEs Bed Mobility Supine to Sit: Max assist (x 2) Sit to Supine: (Pt in chair with call light, RN aware) Other: Max cuing for hand placement and technique. Pt very painful. Limited flexion at hips and pushing posteriorly. Bilat UEs flailing. Cues for proper breathing techniques Transfers Sit to Stand: Min assist (x 2) Stand to Sit: Min assist (x 2) Bed to Chair: Min assist (x 2) Other: Cues for hand placement and technique and bed slightly elevated. Pt required an extended amount of time to determine where he prefered placing his hand. Pt anxious and slightly agitated. Gait Gait Assistance: Min assist (x 2. Assist for safety and safe walker use) Assistive Device: Rolling walker Gait Distance: 3' bed to chair Limiting Factors to Gait: Fatigue, Pain Balance Sitting Balance: Static: Fair (-. Pt initially poor, pushing posteriorly. Max cuing for LE and UE placement to assist with sitting. Pt required an extended amount of time sitting EOB in preparation to stand. Cuing for proper breathing techniques.) Sitting Balance: Dynamic: Poor Standing Balance: Static: Fair (-) Standing Balance: Dynamic: Poor Other: Standing balance with RW for support RUE Strength RUE Overall Strength: (grossly 4/5) LUE Assessment: (NT formally due to shoulder pain from Cspine issues) Activity Tolerance Endurance: Tolerates >30 minutes activity with rest breaks Other: increased time and rest breaks required Plan Occupational Therapy Care Plan Occupational Therapy Care Plan (Active) Template: OT - Occupational Therapy Problem: Activity Tolerance Dates: Start: 01/31/24 Disciplines: OT Goal: Tolerate > 30 minutes of activity WITHOUT rest breaks Dates: Start: 01/31/24 Expected End: 02/28/24 Description: Goal Description: Disciplines: OT Problem: Bed Mobility Dates: Start: 01/31/24 Disciplines: OT Goal: Patient will perform bed mobility with Modified [place] Dates: Start: 01/31/24 Expected End: 02/28/24 Description: Goal Description: Disciplines: OT Problem: Functional Mobility Dates: Start: 01/31/24 Disciplines: OT Goal: Patient will perform functional mobility with Modified [place] Dates: Start: 01/31/24 Expected End: 02/28/24 Description: Goal Description: Disciplines: OT Problem: Other (Customize) Dates: Start: 01/31/24 Disciplines: OT Goal: Improve Dates: Start: 01/31/24 Expected End: 02/28/24 Description: Goal Description: Complete ADLs [place] with AE/DME Disciplines: OT Problem: Sitting Balance Dates: Start: 01/31/24 Disciplines: OT Goal: Improve balance to good Dates: Start: 01/31/24 Expected End: 02/28/24 Description: Static Dynamic Disciplines: OT Problem: Standing Balance Dates: Start: 01/31/24 Disciplines: OT Goal: Improve balance to good Dates: Start: 01/31/24 Expected End: 02/28/24 Description: Static Dynamic Disciplines: OT Problem: Strength Dates: Start: 01/31/24 Disciplines: OT Goal: Improve strength Dates: Start: 01/31/24 Expected End: 02/28/24 Description: Of extremity/ location: Tolerate bilat UE exercises to increase strength and endurancefor self care tasks To facilitate: Disciplines: OT Problem: Transfers Dates: Start: 01/31/24 Disciplines: OT Goal: Patient will perform transfers with Modified [place] Dates: Start: 01/31/24 Expected End: 02/28/24 Description: Goal Description: Disciplines: OT Occupational Therapy Care Plan (Resolved) There are no resolved problems. Principal Problem: Closed fracture of right hip, initial encounter ([facility]) Active Problems: Myah-prosthetic fracture around prosthetic hip * Plan of Care - Mia Goddard RN - 01/31/2024 9:06 AM EDT Problem: Pain Goal: Patient goal is pain score less than 4, able to rest, and participant in treatment plan as appropriate Description: INTERVENTIONS: 1. Encourage patient or legal charter representative to report early pain and ask for pain medicine when needed 2. Assess pain using appropriate pain scale and include the scale used when documenting 3. Administer analgesics based on type and severity of pain and evaluate response within appropriate time frame 4. Implement non-pharmacological measures as appropriate and evaluate response 5. Consider cultural and social influences on pain and pain management 6. Notify LIP if interventions ineffective or patient reports new pain 7. Monitor vital signs including pulse ox, end-tidal CO2 based on pain intervention 8. Reassess pain per policy 9. Teach patient or legal charter representative interventions for comforting Outcome: Progressing Note: Evaluation of progress towards goal: Patinet rates pain level between 6 to 10 is medicated asordered, states has acceptable pain relief. Will continue to moniter * Plan of Care - Santi Parks RN - 01/30/2024 7:35 PM EDT Problem: Pain Goal: Patient goal is pain score less than 4, able to rest, and participant in treatment plan as appropriate Description: INTERVENTIONS: 1. Encourage patient or legal charter representative to report early pain and ask for pain medicine when needed 2. Assess pain using appropriate pain scale and include the scale used when documenting 3. Administer analgesics based on type and severity of pain and evaluate response within appropriate time frame 4. Implement non-pharmacological measures as appropriate and evaluate response 5. Consider cultural and social influences on pain and pain management 6. Notify LIP if interventions ineffective or patient reports new pain 7. Monitor vital signs including pulse ox, end-tidal CO2 based on pain intervention 8. Reassess pain per policy 9. Teach patient or legal charter representative interventions for comforting Outcome: Progressing Note: Evaluation of progress towards goal: pain assessed and analgesics administered as needed, nonpharmacological measures implemented as needed. Problem: Safety Goal: Patient will be injury free during hospitalization Description: INTERVENTIONS: 1. Assess patient's risk for falls and implement fall prevention plan of care per policy 2. Provide and maintain a safe environment 3. Proper use of double Identifiers 4. Medication administration using the 5 rights 5. Hand hygiene 6. Specimens are labeled at the bedside 7. Instruct patient/ patient charter representative about use of safety devices 8. Include patient/ patient charter representative in decisions related to safety Outcome: Progressing Note: Evaluation of progress towards goal: Safety measures initiated/maintained. Pt remains safe from harm/injury/falls Problem: Infection Goal: Absence of infection during hospitalization Description: Interventions: 1. Assess and monitor for signs and symptoms of infection 2. Monitor lab/diagnostic results 3. Monitor all insertion sites i.e., indwelling lines, tubes and drains 4. Monitor endotracheal (as able) and nasal secretions for changes in amount and color 5. Administer medications as ordered 6. Instruct and encourage patient and family to use good hand hygiene technique 7. Identify and instruct patient/patient charter representative in use of appropriate isolation precautionsfor identified infection/symptoms 8. Provide and discuss with patient/patient charter representative on educational MDRO sheet 9. Encourage and monitor nutritional status daily and consult maxillofacial pathology if indicated 10. Implement neutropenic guidelines as needed 11. Review exposure to history of communicable disease and recent travel history on admission 12. Encourage annual influenza vaccine 13. Encourage pneumonia vaccine Outcome: Progressing Note: Evaluation of progress towards goal: Pt afebrile at this time, continue to monitor for signs infection Problem: Knowledge Deficit Goal: Patient/patient charter representative demonstrates understanding of disease process, treatment plan,medications, and discharge instructions Description: INTERVENTIONS 1. Complete learning assessment and assess knowledge base 2. Provide teaching at level of understanding 3. Provide teaching via preferred learning method(s) Outcome: Progressing Note: Evaluation of progress towards goal: POC discussed with patient. Questions answered PRN. * Plan of Care - Rachel Almanzar RN - 01/30/2024 6:16 PM EDT Problem: Pain Goal: Patient goal is pain score less than 4, able to rest, and participant in treatment plan as appropriate Description: INTERVENTIONS: 1. Encourage patient or legal charter representative to report early pain and ask for pain medicine when needed 2. Assess pain using appropriate pain scale and include the scale used when documenting 3. Administer analgesics based on type and severity of pain and evaluate response within appropriate time frame 4. Implement non-pharmacological measures as appropriate and evaluate response 5. Consider cultural and social influences on pain and pain management 6. Notify LIP if interventions ineffective or patient reports new pain 7. Monitor vital signs including pulse ox, end-tidal CO2 based on pain intervention 8. Reassess pain per policy 9. Teach patient or legal charter representative interventions for comforting Outcome: Progressing Note: Evaluation of progress towards goal: Encourage patient or legal charter representative to report early pain and ask for pain medicine when needed. Assessing pain using appropriate pain scale and include the scale used when documenting. Monitor vital signs including pulse ox. Reassessing pain per polic y. Teach patient interventions for non-pharmacological pain management. Problem: Safety Goal: Patient will be injury free during hospitalization Description: INTERVENTIONS: 1. Assess patient's risk for falls and implement fall prevention plan of care per policy 2. Provide and maintain a safe environment 3. Proper use of double Identifiers 4. Medication administration using the 5 rights 5. Hand hygiene 6. Specimens are labeled at the bedside 7. Instruct patient/ patient charter representative about use of safety devices 8. Include patient/ patient charter representative in decisions related to safety Outcome: Progressing Note: Evaluation of progress towards goal: Pt's bed is low and locked. Environment is clutter free. 2/4 side rails up. Call light and personal items within reach. Non-skid socks worn during ambulation. Problem: Infection Goal: Absence of infection during hospitalization Description: Interventions: 1. Assess and monitor for signs and symptoms of infection 2. Monitor lab/diagnostic results 3. Monitor all insertion sites i.e., indwelling lines, tubes and drains 4. Monitor endotracheal (as able) and nasal secretions for changes in amount and color 5. Administer medications as ordered 6. Instruct and encourage patient and family to use good hand hygiene technique 7. Identify and instruct patient/patient charter representative in use of appropriate isolation precautionsfor identified infection/symptoms 8. Provide and discuss with patient/patient charter representative on educational MDRO sheet 9. Encourage and monitor nutritional status daily and consult maxillofacial pathology if indicated 10. Implement neutropenic guidelines as needed 11. Review exposure to history of communicable disease and recent travel history on admission 12. Encourage annual influenza vaccine 13. Encourage pneumonia vaccine Outcome: Progressing Note: Evaluation of progress towards goal: Nurse will assess and monitor for signs and symptoms of infection with lab/diagnostic results, monitor all insertion sites. Administer medications as ordered. Instruct and encourage patient and family to use good hand hygiene technique. Encourage and monitor nutritional status daily and consult maxillofacial pathology if indicated. Encourage annual influenza vaccine and pneumonia vaccine. * Op Note - Ang Figueroa MD - 01/30/2024 9:23 AM EDT DATE OF OPERATION: January 30, 2024 PREOPERATIVE DIAGNOSIS: 1. right intertrochanteric hip fracture with new periprosthetic subtrochanteric fracture after a second fall at rehab POSTOPERATIVE DIAGNOSIS: 1. Same OPERATION: 1. IM nail right intertrochanteric/subtrochanteric hip fracture.- 23332 2. Removal hardware Right femur - [id number] SURGEON: Ang Figueroa MD WHITE SOURER: Jalen Gan MD ANESTHESIA: General. MEDICATIONS: vanc IV preop. Vancomycin placed in the surgical field as well ESTIMATED BLOOD LOSS: 300 mL. FLUIDS: 700 mL of crystalloid. URINE OUTPUT: 0 mL. DRAINS: None. COMPLICATIONS: None. SPECIMEN: None. DISPOSITION: PACU. FINDINGS: Soft compartments and probable pulse at the completion of the case. Brisk capillary refill. Stable in alignment rotation of the fracture. Safe extra-articular placement of all implants. Short nail removed. Periprosthetic subtrochanteric femur fracture reduced with clamps and a cable and held with a long nail. Hematoma extracted from the prior surgical field with no signs of infection PLAN: Weight bearing as tolerated on limb right lower extremity, 24 hours of antibiotics, DVT prophylaxis with Lovenox, PT/OT, monitor x-rays and labs, will need rehab placement most likely. Stable for disposition rehab when stable from a medical standpoint. Geriatric fracture program. IMPLANTS USED: Synthes 44 cm, 12 mm, 125 degrees, 95 mm lag screw with 58 & 44 mm distal locking bolt. HPI/INDICATION FOR SURGERY: Ruth Smith is a 53 y.o. male status post 2nd fall at a rehab center after IM nail ofhis hip about 10 days ago with complaints of right hip pain and inability to ambulate. Radiographicimaging identified a right intertrochanteric hip fracture that was prior fixed with a short nail that has a new fracture in the subtrochanteric region extending down to the distal interlocking screw indicating the patient for the aforementioned surgical stabilization procedure. Saw and evaluated the patient in the office in discussed continuing to try to manage this with a short nail verses revising it to a long nail. The patient was quite uncomfortable thus he wanted to change into a long nailfor more stability which I think is a very reasonable treatment options for this myah implant fracture. The patient was seen and evaluated and optimized by medical service for surgical intervention. I discussed the patient and family preoperatively risks, benefits, alternatives, surgical and nonsurg ical management including bleeding, infection, , damage to normal structure, PE, DVT, VT, stroke, nonunion, malunion, chronic pain, arthrosis, arthritis, limited function, avascular necrosis of femoral head and need for further surgery. They understand the high mortality rate associated with hip fractures, limited function, walking, mortality and morbidity associated with hip fractures as well as the risks of recumbency (PE/DVT, UTI, decubitus ulcer, pneumonia). DESCRIPTION OF PROCEDURE: The patient was identified in the preoperative holding area. My initials were placed on operative extremity. Consent was deemed appropriate. he was taken to the operating room by the anesthesia staffwith controlled airway in the C-spine all times during the case. he was placed supine on the bed and underwent general anesthesia. He was placed in the lateral decubitus position on the [place] table with a peralta bag extra in the standard fashion after care was taken to identify and paddle bony prominences. The arm was secured in the standard fashion. he was provisonally draped in plastic draping and then scrubbed with chlorhexidine scrub. he was prepped and draped in standard sterile orthopedicfashion. A time-out was performed. Everybody in the room stopped. Consent was read aloud and surgical procedure commenced. After antibiotics were confirmed and given, my extremity jeffrey was identified. Longitude incision was made over the lateral side of the hip. Sharp and blunt dissection taken downto level the fascia. Electrocautery was used to obtain hemostasis. The fascia was opened in a subfascial hematoma was extracted. Dissection down to the top of the nail, the proximal locking screw in the distal interlocking screw was completed. The periprosthetic fracture was identified. Two wires were placed up in the cephalomedullary reason to hold the intertrochanteric area appropriately reduced. The distal interlocking screw, proximal screw and nail were all removed in the standard fashion removing it. Two clamps were then placed on the myah implant fracture that extended down the shaft and it was reduced anatomically. One cable was placed directly on bone to secure this and clamped appropriately. A guidewire was then placed down to the level of the knee and confirmed fluoroscopic imaging and reamed to 14 mm. The nail was then placed to the appropriate depth. AP and lateral fluoroscopic imaging confirmed appropriate placement of the nail at the level of the hip. It was confirmed daniel in appropriate position on on AP and lateral distally. Through a second incision, the jig was placed for the proximal insertion of the wire. This was placed in center-center deep position in the proximal head/neck fragment. Length assessment was performed. Proximal preparation for the lag screw was performed and the aforementioned lag screw was placed in the deep center-center position, and verified to be in an extra-articular safe position. Compression across the fracture was obtained in the standard fashion and identified under fluoroscopic localization. The distal interlocking screw was then placed by using a perfect afognak technique with fluoroscopy. The drill bit was inserted, length assessment was performed and the screw was placed of appropriate length. A 2nd screw was placed inthe standard fashion. Final AP and lateral fluoroscopic imaging in the hip fracture identified appropriate length, alignment, and rotation of her femur with fixation of her fracture. There was safe, extra-articular placement of the implants. All provisional wires reduction tools and jigs were removed. All wounds were copiously irrigated with normal saline. Deep layers were closed with #1 Vicryl, 2-0 Vicryl and esmer for the skin. Sterile dressings were applied. Prior to closure vancomycin was placed in the depth of the surgical field. The patient was removed from the fracture table in the standard fashion. Awaken from anesthesia in stable condition, transferred to PACU. All counts were correct at the end of the case. his has soft compartments and palpable pulses. Evidence of infection was not visualized at time of surgery. ANG FIGUEROA MD * PT/OT/THERMAL SURFACING MACHINE OPERATOR - Thalia Han OTR/L - 01/30/2024 8:43 AM EDT Occupational Therapy CANCEL - Deferred OT attempted. Pt off floor at surgery. Will check back as able. * PT/OT/THERMAL SURFACING MACHINE OPERATOR - Lindsay Infante PT - 01/30/2024 8:41 AM EDT Physical Therapy CANCEL - Deferred (Pt currently off the unit in surgery. Will complete PT eval post-op as able.) * Plan of Care - Santi Parks RN - 01/29/2024 8:51 PM EDT Problem: Pain Goal: Patient goal is pain score less than 4, able to rest, and participant in treatment plan as appropriate Description: INTERVENTIONS: 1. Encourage patient or legal charter representative to report early pain and ask for pain medicine when needed 2. Assess pain using appropriate pain scale and include the scale used when documenting 3. Administer analgesics based on type and severity of pain and evaluate response within appropriate time frame 4. Implement non-pharmacological measures as appropriate and evaluate response 5. Consider cultural and social influences on pain and pain management 6. Notify LIP if interventions ineffective or patient reports new pain 7. Monitor vital signs including pulse ox, end-tidal CO2 based on pain intervention 8. Reassess pain per policy 9. Teach patient or legal charter representative interventions for comforting Outcome: Progressing Note: Evaluation of progress towards goal: pain assessed and analgesics administered as needed, nonpharmacological measures implemented as needed. Problem: Safety Goal: Patient will be injury free during hospitalization Description: INTERVENTIONS: 1. Assess patient's risk for falls and implement fall prevention plan of care per policy 2. Provide and maintain a safe environment 3. Proper use of double Identifiers 4. Medication administration using the 5 rights 5. Hand hygiene 6. Specimens are labeled at the bedside 7. Instruct patient/ patient charter representative about use of safety devices 8. Include patient/ patient charter representative in decisions related to safety Outcome: Progressing Note: Evaluation of progress towards goal: Safety measures initiated/maintained. Pt remains safe from harm/injury/falls Problem: Infection Goal: Absence of infection during hospitalization Description: Interventions: 1. Assess and monitor for signs and symptoms of infection 2. Monitor lab/diagnostic results 3. Monitor all insertion sites i.e., indwelling lines, tubes and drains 4. Monitor endotracheal (as able) and nasal secretions for changes in amount and color 5. Administer medications as ordered 6. Instruct and encourage patient and family to use good hand hygiene technique 7. Identify and instruct patient/patient charter representative in use of appropriate isolation precautionsfor identified infection/symptoms 8. Provide and discuss with patient/patient charter representative on educational MDRO sheet 9. Encourage and monitor nutritional status daily and consult maxillofacial pathology if indicated 10. Implement neutropenic guidelines as needed 11. Review exposure to history of communicable disease and recent travel history on admission 12. Encourage annual influenza vaccine 13. Encourage pneumonia vaccine Outcome: Progressing Note: Evaluation of progress towards goal: Pt afebrile at this time, continue to monitor for signs infection Problem: Knowledge Deficit Goal: Patient/patient charter representative demonstrates understanding of disease process, treatment plan,medications, and discharge instructions Description: INTERVENTIONS 1. Complete learning assessment and assess knowledge base 2. Provide teaching at level of understanding 3. Provide teaching via preferred learning method(s) Outcome: Progressing Note: Evaluation of progress towards goal: POC discussed with patient. Questions answered PRN. [facility] [place]* PT/OT/THERMAL SURFACING MACHINE OPERATOR - MALATHI Meneses/Lanie - 02/03/2024 9:51 AM EDT Occupational Therapy Treatment Discharge Recommendations OT Recommendations : Inpatient Rehab Inpatient Rehab Criteria: All inpatient rehab criteria expected to be met 6 Clicks: Daily Activity Putting on and taking off regular lower body clothing?: A lot Bathing (including washing, rinsing, drying)?: A lot Toileting, which includes using toilet, bedpan or urinal?: A little Putting on and taking off regular upper body clothing?: A little Taking care of personal grooming such as brushing teeth?: None Eating meals?: None Scoring Daily Activity Raw Score: 18 CMS G Code Modifier: CK OT Treatment/Interventions: ADL retraining, Functional transfer training, LE strengthening/ROM, UE strengthening/ROM, Endurance training, Patient/family training, Equipment eval/education, Balance, Bed mobility, Compensatory technique education, Functional activities OT Frequency: Twice a Day OT Duration: Until discharge Assessment Patient Assessment Therapy Problem List: Decreased balance, Decreased endurance, Decreased mobility, Decreased safe judgement during ADL, Decreased LE ROM, Decreased LE strength Patient Response to Treatment: Slow progress, decreased activity tolerance Mood/Affect: Appropriate for circumstances Rehab Prognosis: Good, With continued OT status post acute discharge Visit RN Communication: Yes Medical Record Reviewed: Yes OT Type of Visit: Treatment Precautions Activity: Early mobility pass; okay to see per RN Equipment: Gait belt, RW Weight Bearing Status: WBAT RLE Telemetry/Paper Machine Back Tender: Yes Other: fall risk Pain Assessment Pain Assessment: 0-10 Pain Score: 8 Pain Type: Surgical pain Pain Location: Hip, Leg Pain Orientation: Right Pain Intervention(s): Repositioned, Ambulation/increased activity Response to Interventions: Quiet, No grimacing ADL / IADL Other: Pt declined ADLs this date. Home Management - IADL Other: Pt declined ADLs this date. Hearing / Speech / Vision Hearing: Within Functional Limits Speech: Within Functional Limits Current Vision: Wears glasses only for reading Cognition Orientation Level: Oriented X4 Bed Mobility Other: Pt in chair upon arrival and at end of session with call light within reach, RN aware. Transfers Sit to Stand: Contact guard assist Stand to Sit: Contact guard assist Other: Cues for hand placement. CGA for safety. Cues for slow-controlled descent. Gait Gait Assistance: Min assist Assistive Device: Rolling walker Gait Distance: 65' Limiting Factors to Gait: Fatigue, Weakness Other: Pt completed functional mobility with min A. Increased time/effort required. No LOB noted. Balance Sitting Balance: Static: Good Sitting Balance: Dynamic: Fair (+) Standing Balance: Static: Fair Standing Balance: Dynamic: Fair (-) Other: BUE support on RW with transfers/functional mobility. Slow/steady steps. No LOB noted. Activity Tolerance Endurance: Tolerates 30 minutes activity WITHOUT rest breaks Other: Pt with good tolerance to tx interventions with steady improvement noted as compared to previous tx sessions. 02/03/24 0859 UE ROM Scapular retraction x Shoulder flexion/extension x Shoulder horizontal abduction/adduction x Other BUE AROM Repetitions x15 Plan Occupational Therapy Care Plan Occupational Therapy Care Plan (Active) Template: OT - Occupational Therapy Problem: Activity Tolerance Dates: Start: 01/31/24 Disciplines: OT Goal: Tolerate > 30 minutes of activity WITHOUT rest breaks Dates: Start: 01/31/24 Expected End: 02/28/24 Description: Goal Description: Disciplines: OT Outcomes Date/Time User Outcome 02/03/24 0944 Katlin Goins SERVIN/L Progressing 02/02/24 0953 WILLARD Banda/Lanie Not Progressing 02/01/24 1548 Azul Medrano, SERVIN/L Progressing 02/01/24 1328 Azul Medrano, SERVIN/L Not Progressing 01/31/24 1609 Azulvanessa Medrano, SERVIN/L Progressing Goal Note filed on 02/02/24952 by Ludy Seward, OTR/L Evaluation of progress towards goal: Problem: Bed Mobility Dates: Start: 01/31/24 Disciplines: OT Goal: Patient will perform bed mobility with Modified [place] Dates: Start: 01/31/24 Expected End: 02/28/24 Description: Goal Description: Disciplines: OT Outcomes Date/Time User Outcome 02/01/24 1328 Azul Mitchell, SERVIN/L Progressing Goal Note filed on 02/01/24 1328 by Azul Medrano SERVIN/L Evaluation of progress towards goal: Problem: Functional Mobility Dates: Start: 01/31/24 Disciplines: OT Goal: Patient will perform functional mobility with Modified [place] Dates: Start: 01/31/24 Expected End: 02/28/24 Description: Goal Description: Disciplines: OT Outcomes Date/Time User Outcome 02/03/24 0944 Katlin Gions, SERVIN/L Progressing 02/01/24 1548 Azul Mitchell, SERVIN/L Progressing 02/01/24 1328 Azul Mitchell, SERVIN/L Not Progressing 01/31/24 1609 Azul Mitchell, SERVIN/L Progressing Goal Note filed on 02/02/24 0953 by Ludy Ireland OTR/Lanie Evaluation of progress towards goal: Problem: Other (Customize) Dates: Start: 01/31/24 Disciplines: OT Goal: Improve Dates: Start: 01/31/24 Expected End: 02/28/24 Description: Goal Description: Complete ADLs [place] with AE/DME Disciplines: OT Problem: Sitting Balance Dates: Start: 01/31/24 Disciplines: OT Goal: Improve balance to good Dates: Start: 01/31/24 Expected End: 02/28/24 Description: Static Dynamic Disciplines: OT Outcomes Date/Time User Outcome 02/03/24 0944 Katlin Goins, SERVIN/L Progressing 02/02/24 0953 WILLARD Banda/Lanie Progressing 02/01/24 1548 Azul Mitchell, SERVIN/L Progressing 02/01/24 1328 Azul Mitchell, SERVIN/L Not Progressing 01/31/24 1609 Azul Mitchell, SERVIN/L Progressing Goal Note filed on 02/02/24 0953 by Ludy Ireland OTR/Lanie Evaluation of progress towards goal: Problem: Standing Balance Dates: Start: 01/31/24 Disciplines: OT Goal: Improve balance to good Dates: Start: 01/31/24 Expected End: 02/28/24 Description: Static Dynamic Disciplines: OT Outcomes Date/Time User Outcome 02/03/24 0944 Katlin Goins, SERVIN/L Progressing 02/02/24 0953 Ludy Ireland OTR/L Not Progressing 02/01/24 1548 Azul Mitchell, SERVIN/L Progressing 02/01/24 1328 Azul Mitchell, SERVIN/L Not Progressing 01/31/24 1609 Azul Mitchell, SERVIN/L Progressing Goal Note filed on 02/02/24 0953 by WILLARD Banda/Lanie Evaluation of progress towards goal: Problem: Strength Dates: Start: 01/31/24 Disciplines: OT Goal: Improve strength Dates: Start: 01/31/24 Expected End: 02/28/24 Description: Of extremity/ location: Tolerate bilat UE exercises to increase strength and endurancefor self care tasks To facilitate: Disciplines: OT Outcomes Date/Time User Outcome 02/03/24 0944 Katlin Goins, SERVIN/L Progressing 02/01/24 1548 Azul Mitchell, SERVIN/L Progressing 01/31/24 1609 Azul Mitchell, SERVIN/L Not Progressing Goal Note filed on 02/01/24 1548 by Azul Medrano SERVIN/L Evaluation of progress towards goal: Problem: Transfers Dates: Start: 01/31/24 Disciplines: OT Goal: Patient will perform transfers with Modified [place] Dates: Start: 01/31/24 Expected End: 02/28/24 Description: Goal Description: Disciplines: OT Outcomes Date/Time User Outcome 02/03/24 0944 Katlin Goins, SERVIN/L Progressing 02/02/24 0953 Ludy Ireland OTR/L Progressing 02/01/24 1548 Azul Mitchell, SERVIN/L Progressing 02/01/24 1328 Azul Mitchell, SERVIN/L Not Progressing 01/31/24 1609 Azul Mitchell, SERVIN/L Progressing Goal Note filed on 02/02/24 0953 by Ludy Ireland OTR/Lanie Evaluation of progress towards goal: Occupational Therapy Care Plan (Resolved) There are no resolved problems. Principal Problem: Closed fracture of right hip, initial encounter ([facility]) Active Problems: Myah-prosthetic fracture around prosthetic hip Associated attestation - Ludy Dey OTR/L - 02/03/2024 11:43 AM EDT I have reviewed and agree with this note and education documentation for this visit. [facility] [place]06[facility] Plan of care note* Plan of Care - Lian Silva RN - 02/03/2024 8:45 AM EDT Problem: Pain Goal: Patient goal is pain score less than 4, able to rest, and participant in treatment plan as appropriate Description: INTERVENTIONS: 1. Encourage patient or legal charter representative to report early pain and ask for pain medicine when needed 2. Assess pain using appropriate pain scale and include the scale used when documenting 3. Administer analgesics based on type and severity of pain and evaluate response within appropriate time frame 4. Implement non-pharmacological measures as appropriate and evaluate response 5. Consider cultural and social influences on pain and pain management 6. Notify LIP if interventions ineffective or patient reports new pain 7. Monitor vital signs including pulse ox 8. Reassess pain per policy 9. Teach patient or legal charter representative interventions for comforting Outcome: Progressing Note: Evaluation of progress towards goal: Verbalizes adequate comfort level. Please see MAR for pain management orders. Problem: Glucose Imbalance Goal: Clinical indication of glucose balance is achieved Description: Patient's goal is: INTERVENTIONS 1. Monitor blood glucose levels as ordered 2. Administer medications as ordered 3. Notify physician of ineffective treatment plan Outcome: Progressing Note: Evaluation of progress towards goal: Lab values monitored per shift; replacements provided asneeded or required. Will continue to monitor electrolyte values. Problem: Moderate - High Risk Fall Score Description: Arredondo Fall Score of =/> 25 or indicated by [facility] Assessment Goal: Patient should be free from fall Description: Interventions: 1. [place] to environment 2. Hourly rounds addressing the 4 P's (Pain, Positioning, Possessions, Potty) 3. Clear area of hazards (spills, clutter, electrical cords, unnecessary equipment) 4. Place equipment (bed & TV controls, call light, phone, urinal) within reach 5. Encourage patient to wear glasses and hearing aides as appropriate 6. Maintain bed in lowest position 7. Lock wheels on bed/wheelchair 8. Provide adequate lighting, including night light 9. Assess need for additional bedding, food/fluids, pain med's prior to sleep/routinely 10. Provide gripper slippers or personal non-skid footwear 11. Teach patient and patient charter representative to maintain environment for safety and engage in all aspects of fall prevention program 12. Remind patient to call for help before getting out of bed 13. Initiate bed/chair/exit alarms supportive devices as appropriate, (chair wedge, no-skid floor mat, raised edge mattress, hip protectors) 14. Locate patient bed assignment for optimal visualization 15. Evaluate and identify Safe Patient Handling Equipment needs 16. Provide supervision when out of bed or chair 17. Utilize gait belt as needed to assist with ambulation 18. Place adaptive equipment (cane, walker) within reach 19. Request patient charter representative bring adaptive equipment/mobility aids from home or obtain and provide as needed 20. Consult pharmacy regarding effects of med's affecting mobility, cognition, and alternatives 21. Obtain physician order for PT if risk factors associated with mobility are present 22. Obtain physician order for OT as appropriate 23. Utilize diversional activities 24. Educate patient and patient charter representative how to maintain a safe environment during visitationtimes (notify nurse prior to leaving bedside) 25. Consider appropriateness of medical or non-medical librarian 26. Set up voiding schedule as appropriate (every 2 hours) Outcome: Progressing Note: Evaluation of progress towards goal: Call light within reach. Remains free of fall or injury.Environment free of clutter. [facility] [place]06-[facility] Hospital course Narrative* Leatha Mcguire MD - 02/03/2024 8:30 AM EDT Images from the original note were not included. DISCHARGE NOTE Demographics: Patient Name: Ruth Smith : 1970 DATE OF ADMISSION: 01/29/2024 DATE OF DISCHARGE: 02/03/2024 DISCHARGE DIAGNOSES: 1. Right intertrochanteric hip fracture with new periprosthetic subtrochanteric fracture after a 2nd fall patient status post intramedullary nail right intertrochanteric/subtrochanteric hip fracture and removal of hardware right femur postop day 4. Pain better controlled continue to monitor Management will be as per Orthopedics as thigh was still soft and feel right thigh swelling extensive bruising from previous fracture and surgery and current surgery Orthopedics did not feel consistent with compartment syndrome and cleared for discharge. Discussed with orthopedic PA this morning Venous duplex of the right lower extremity showed no evidence of DVT or superficial vein thrombosisof right lower extremities. 2. Mild hyponatremia resolved hydrochlorothiazide on hold . Will place on some fluid restriction and check urine electrolytes. Monitor closely. 3. Acute blood loss anemia with iron-deficiency from periprosthetic fracture and expected from blood loss from surgery. Monitor hemoglobin closely. Outpatient follow-up with primary care discussed with patient to follow-up with primary care regarding a full GI workup including upper GI endoscopy and colonoscopy if not done recently for concerns for iron-deficiency anemia. Patient verbalized understanding no active bleeding currently. 4. History of COPD without exacerbation 5. Diabetes mellitus type 2 at home he has been on Tresiba,Ozempic and linagliptin metformin and Humalog with meals Here he has been switched to Lantus 20 units daily and insulin sliding scale. Please have facility physician and internal medicine physician review regarding availability and adjust diabetic medications accordingly. 6. Severe obesity BMI of 33 counseled patient 7. History hypertension Continue Coreg and losartan monitor blood pressure closely Hydrochlorothiazide was stopped due to low sodium levels facility physician to monitor closely and adjust blood pressure med accordingly 8. History of chronic pain 9. History of BPH Principal Problem: Closed fracture of right hip, initial encounter ([facility]) Active Problems: Myah-prosthetic fracture around prosthetic hip CONSULTANTS: Consulting Providers Provider Service Specialty [facility] -- Hematology MD Rubén Puri Physical Medicine and Rehabilitation Physical Medicine and Rehabilitation PCP: Patient Care Team: Jd Du PA-C as PCP - General (Physician Pearl Cutter) PROCEDURES PERFORMED: right intertrochanteric/subtrochanteric hip fracture and removal of hardware right femur postop day 4. HOSPITAL COURSE SUMMARY: Per HPI: 53-year-old male with history of hypertension diabetes mellitus type 2 COPD and hep C cirrhosis presenting after fall and landing on right hip causing worsening pain. CT of the hip showed periprosthetic right hip fracture . Patient had recent hip fracture surgery and was in inpatient rehab when he fell. Patient status post right intertrochanteric/subtrochanteric hip fracture and removal of hardware right femur postop day 4. Patient pain better controlled and keen on discharge on inpatient rehab. Bruising and hematoma alsoimproved. Cleared by Orthopedics for discharge. Counseled patient no driving and no operating heavymachinery . Counseled to follow-up with primary care regarding all issues after discharge from inpatient rehab patient verbalized understanding also counseled to closely follow-up with orthopedics as scheduled. Patient states pain still uncontrolled . Orthopedic adjusted his oxycodone. Patient counseled to useminimum amount of narcotics counseled on side effects including risk of respiratory depression stopping breathing risk of risk of falls patient verbalized understanding. Facility physician to closely monitor and adjust doses accordingly. Exam: BP 127/69 Pulse 79 Temp 36.8 C (98.3 F) Resp 14 Ht 185.4 cm (6' 1 ) Wt 112.1 kg (247 lb 2.2 oz) SpO2 98% BMI 32.61 kg/m Intake/Output Summary (Last 24 hours) at 02/03/2024 1027 Last data filed at 02/03/2024 0600 Gross per 24 hour Intake 1940 ml Output 2500 ml Net -560 ml General appearance: alert, appears stated age, and cooperative Lungs: clear to auscultation bilaterally Heart: regular rate and rhythm, S1, S2 normal, no murmur, click, rub or gallop Abdomen: soft, non-tender; bowel sounds normal; no masses, no organomegaly Extremities: extremities normal, atraumatic, no cyanosis or edema Labs: Recent Results (from the past 48 hour(s)) Basic Metabolic Panel Collection Time: 02/01/24 10:35 AM Result Value Ref Range Sodium 134 134 - 146 mmol/L Potassium, Bld 3.8 3.5 - 5.0 mmol/L Chloride 98 98 - 109 mmol/L CO2 23 22 - 32 mmol/L Anion gap 13 5 - 15 mmol/L BUN 15 5 - 23 mg/dL Creatinine 0.66 0.60 - 1.30 mg/dL Glucose 130 (H) 65 - 99 mg/dL Calcium 9.0 8.5 - 10.5 mg/dL eGFR (CKD-EPI)non-race dependent >90 >59 ml/min/1.73sq.m Bedside Glucose *Place/Obtain serum glucose if >500(>600 MRH) per glucometer. Collection Time: 02/01/24 11:03 AM Result Value Ref Range Bedside glucose 132 (H) 65 - 99 mg/dL CBC auto differential Collection Time: 02/01/24 12:20 PM Result Value Ref Range White Blood Cells 6.5 4.0 - 11.0 X10E9/L RBC count 3.69 (L) 4.10 - 5.70 X10E12/L Hemoglobin 10.8 (L) 13.0 - 17.0 g/dL Hematocrit 31.0 (L) 39 - 49 % MCV 84 80 - 100 fL MCH 29.2 27 - 34 pg MCHC 34.7 32 - 36 g/dL RDW 15.5 (H) 11.5 - 15.0 % Platelets 273 150 - 450 X10E9/L MPV 10.4 7 - 12 fL % neutrophils 69.6 % % lymphocytes 20.0 % % monocytes 8.5 % % eosinophils 1.0 % % Basophils 0.9 % Neutrophils Absolute (A) 4.5 1.5 - 6.6 X10E9/L Lymphocytes Absolute 1.3 1.0 - 3.5 X10E9/L Monocytes Absolute 0.6 0 - 0.9 X10E9/L Eosinophils Absolute 0.1 0.0 - 0.4 X10E9/L Basophils Absolute 0.1 0.0 - 0.2 X10E9/L Bedside Glucose *Place/Obtain serum glucose if >500(>600 MRH) per glucometer. Collection Time: 02/01/24 3:39 PM Result Value Ref Range Bedside glucose 232 (H) 65 - 99 mg/dL Bedside Glucose *Place/Obtain serum glucose if >500(>600 MRH) per glucometer. Collection Time: 02/01/24 9:17 PM Result Value Ref Range Bedside glucose 135 (H) 65 - 99 mg/dL CBC auto differential Collection Time: 02/02/24 7:00 AM Result Value Ref Range White Blood Cells 6.4 4.0 - 11.0 X10E9/L RBC count 3.58 (L) 4.10 - 5.70 X10E12/L Hemoglobin 10.3 (L) 13.0 - 17.0 g/dL Hematocrit 30.3 (L) 39 - 49 % MCV 85 80 - 100 fL MCH 28.9 27 - 34 pg MCHC 34.1 32 - 36 g/dL RDW 15.9 (H) 11.5 - 15.0 % Platelets 235 150 - 450 X10E9/L MPV 10.0 7 - 12 fL % neutrophils 67.0 % % lymphocytes 21.4 % % monocytes 9.4 % % eosinophils 1.2 % % Basophils 1.0 % Neutrophils Absolute (A) 4.3 1.5 - 6.6 X10E9/L Lymphocytes Absolute 1.4 1.0 - 3.5 X10E9/L Monocytes Absolute 0.6 0 - 0.9 X10E9/L Eosinophils Absolute 0.1 0.0 - 0.4 X10E9/L Basophils Absolute 0.1 0.0 - 0.2 X10E9/L Basic Metabolic Panel Collection Time: 02/02/24 7:00 AM Result Value Ref Range Sodium 136 134 - 146 mmol/L Potassium, Bld 3.9 3.5 - 5.0 mmol/L Chloride 98 98 - 109 mmol/L CO2 27 22 - 32 mmol/L Anion gap 11 5 - 15 mmol/L BUN 14 5 - 23 mg/dL Creatinine 0.63 0.60 - 1.30 mg/dL Glucose 143 (H) 65 - 99 mg/dL Calcium 9.3 8.5 - 10.5 mg/dL eGFR (CKD-EPI)non-race dependent >90 >59 ml/min/1.73sq.m Bedside Glucose *Place/Obtain serum glucose if >500(>600 MRH) per glucometer. Collection Time: 02/02/24 8:04 AM Result Value Ref Range Bedside glucose 146 (H) 65 - 99 mg/dL Bedside Glucose *Place/Obtain serum glucose if >500(>600 MRH) per glucometer. Collection Time: 02/02/24 12:04 PM Result Value Ref Range Bedside glucose 167 (H) 65 - 99 mg/dL Bedside Glucose *Place/Obtain serum glucose if >500(>600 MRH) per glucometer. Collection Time: 02/02/24 4:48 PM Result Value Ref Range Bedside glucose 131 (H) 65 - 99 mg/dL Bedside Glucose *Place/Obtain serum glucose if >500(>600 MRH) per glucometer. Collection Time: 02/02/24 9:02 PM Result Value Ref Range Bedside glucose 182 (H) 65 - 99 mg/dL CBC auto differential Collection Time: 02/03/24 6:07 AM Result Value Ref Range White Blood Cells 6.4 4.0 - 11.0 X10E9/L RBC count 3.46 (L) 4.10 - 5.70 X10E12/L Hemoglobin 9.9 (L) 13.0 - 17.0 g/dL Hematocrit 29.1 (L) 39 - 49 % MCV 84 80 - 100 fL MCH 28.5 27 - 34 pg MCHC 33.9 32 - 36 g/dL RDW 15.8 (H) 11.5 - 15.0 % Platelets 238 150 - 450 X10E9/L MPV 9.8 7 - 12 fL % neutrophils 69.8 % % lymphocytes 18.3 % % monocytes 10.2 % % eosinophils 0.8 % % Basophils 0.9 % Neutrophils Absolute (A) 4.5 1.5 - 6.6 X10E9/L Lymphocytes Absolute 1.2 1.0 - 3.5 X10E9/L Monocytes Absolute 0.7 0 - 0.9 X10E9/L Eosinophils Absolute 0.1 0.0 - 0.4 X10E9/L Basophils Absolute 0.1 0.0 - 0.2 X10E9/L Basic Metabolic Panel Collection Time: 02/03/24 6:07 AM Result Value Ref Range Sodium 134 134 - 146 mmol/L Potassium, Bld 3.7 3.5 - 5.0 mmol/L Chloride 98 98 - 109 mmol/L CO2 26 22 - 32 mmol/L Anion gap 10 5 - 15 mmol/L BUN 11 5 - 23 mg/dL Creatinine 0.59 (L) 0.60 - 1.30 mg/dL Glucose 156 (H) 65 - 99 mg/dL Calcium 8.8 8.5 - 10.5 mg/dL eGFR (CKD-EPI)non-race dependent >90 >59 ml/min/1.73sq.m Bedside Glucose *Place/Obtain serum glucose if >500(>600 MRH) per glucometer. Collection Time: 02/03/24 8:25 AM Result Value Ref Range Bedside glucose 168 (H) 65 - 99 mg/dL Imaging:. Vas venous duplex lwr single right Result Date: 02/02/2024 Narrative: Right: Lower extremity deep veins are compressible with spontaneous phasic spectral Doppler waveforms; superficial veins are compressible without intraluminal content. Left: Common femoralvein is compressible with spontaneous phasic spectral Doppler waveforms. Conclusions: NO EVIDENCE of deep or superficial vein thrombosis of the right lower extremity. No evidence of deep vein thrombosis (DVT) of the left common femoral vein. Recommendations: Any questions prior to finalization, please call the reading physician during normal business hours at the phone number beside their name. X-ray femur right 2+ views Result Date: 01/30/2024 Narrative: XR FEMUR RT 2+ VIEWS Clinical history:REMOVAL HARDWARE INTRAMEDULLARY NAIL/KATERYNA FEMUR right hip pain Comparison: 01/29/2024 Impression: Postoperative changes with new intramedullary kateryna placement. Near anatomic alignment. No evidence of immediate hardware complication. Workstation:[id number] by Marc Paredes MD on 01/30/2024 1:43 PM X-ray femur right 2+ views Result Date: 01/30/2024 Narrative: Clinical history: Postop hardware evaluation Right femur: 01/30/2024 COMPARISON: 01/29/2024 FINDINGS: 2 views of the femur were obtained. 4 images are submitted. An intramedullary nail traverses the proximal femoral fracture. Cerclage wires present in the proximal shaft region. No hardwarecomplication is evident. Fracture alignment is near anatomic. Hip and knee alignment are anatomic with degenerative changes. IMPRESSION: Status post internal fixation of the proximal femoral fracture. Finalized by Jun Ortega MD on 01/30/2024 1:28 PM X-ray femur right 2+ views Result Date: 01/30/2024 Narrative: Clinical history: Fracture. Right femur: 01/29/2024 COMPARISON: 01/17/2024 FINDINGS: Patient status post internal fixation of a proximal femoral fracture. No hardware complication is evident.Fracture alignment appears near- anatomic, characterization is difficult. There is no focal osseous abnormality in the distal femur. IMPRESSION: Status post internal fixation of the proximal femoral fracture. Finalized by Jun Ortega MD on 01/30/2024 6:37 AM DISCHARGE INSTRUCTION: Disposition: Discharge to inpatient rehab Condition:Fair Diet: Adult diet Regular Texture; Consistent Carb 210 grams (1800 kcal); Fluid Restriction 1500 mL Follow up: Jd Du PA-C [facility] [id number] Please arrange follow-up with primary care 1 week of discharge for post hospital visit and follow-up regarding iron-deficiency anemia for discussion regarding full workup and outpatient referral to GI for discussion regarding colonoscopy and upper GI endoscopy if not recently done 2. Please have facility physician arrange for internal medicine consultation while in inpatient rehab 3. Please have facility physician arrange for monitoring of CBC and BMP regularly to monitor hemoglobin and electrolytes while in the rehab facility. 4. Please have facility physician arrange for monitoring of blood pressure twice daily and as needed and call for dose adjustment of blood pressure medications if systolic blood pressure greater [id number] or less than 110 or heart rate less than 60 per minute or diastolic blood pressure greater than95 mmHg Currently hydrochlorothiazide has been stopped secondary to low sodium levels please have the facility physician and internal medicine physician monitor blood pressure and adjust blood pressure medications accordingly 5. Please have facility physician place on fall precautions and aspiration precautions 6. Please have facility physician arrange for physical therapy and occupational therapy evaluation 7. Please have facility physician arrange for monitoring of blood glucose before meals and at nightand call facility physician for dose adjustments of insulin if blood glucose greater than 300 or less than 110 or not eating 8. Please follow-up with orthopedics Dr. Figueroa as scheduled on 02/12/2024 at 8:15 a.m. regarding recent surgery. Telephone number:[phone] 9. No driving and no operating heavy machinery For most accurate medication list, please review the discharge medication summary. 34 minutes were spent on discharging this patient. documented in this encounterCommunity [facility] HospitalComplix [facility] [id number] Plan of care note * Plan of Care - Carin Contreras RN - 02/03/2024 6:10 AM EDT Problem: Infection Goal: Absence of infection during hospitalization Description: Interventions: 1. Assess and monitor for signs and symptoms of infection 2. Monitor lab/diagnostic results 3. Monitor all insertion sites i.e., indwelling lines, tubes and drains 4. Monitor endotracheal (as able) and nasal secretions for changes in amount and color 5. Administer medications as ordered 6. Instruct and encourage patient and family to use good hand hygiene technique 7. Identify and instruct patient/patient charter representative in use of appropriate isolation precautionsfor identified infection/symptoms 8. Provide and discuss with patient/patient charter representative on educational MDRO sheet 9. Encourage and monitor nutritional status daily and consult maxillofacial pathology if indicated 10. Implement neutropenic guidelines as needed 11. Review exposure to history of communicable disease and recent travel history on admission 12. Encourage annual influenza vaccine 13. Encourage pneumonia vaccine Outcome: Progressing Note: Evaluation of progress towards goal: Patient verbalized understanding proper handwashing is first line of infection prevention. Patient shows no S/S of infection at this time. Problem: Knowledge Deficit Goal: Patient/patient charter representative demonstrates understanding of disease process, treatment plan,medications, and discharge instructions Description: INTERVENTIONS 1. Complete learning assessment and assess knowledge base 2. Provide teaching at level of understanding 3. Provide teaching via preferred learning method(s) Outcome: Progressing Note: Evaluation of progress towards goal: Patient agrees with treatment plan at this time. [facility] [place]06-21-2024 Progress note* Discharge Planning Note - Araceli Motta - 02/02/2024 3:32 PM EDT DISCHARGE PLANNING NOTE [facility] transport via PTN confirmed in [facility] to [facility] IPR 6.22.24 at 2:00pm. [facility]06-21-2024 Progress note* PT/OT/THERMAL SURFACING MACHINE OPERATOR - Ludy Ireland OTR/L - 02/02/2024 2:02 PM EDT Occupational Therapy CANCEL - Deferred Pt currently off floor for RLE dopplers. Will continue POC as able. [facility]06-21-2024 Progress note* PT/OT/THERMAL SURFACING MACHINE OPERATOR - Nas Lima PTA - 02/02/2024 2:00 PM EDT Physical Therapy (P) CANCEL - Deferred (pt. off floor for dopplers-Cont per POC when available) Associated attestation - Carlos Brar, PT - 02/02/2024 3:00 PM EDT I have reviewed and agree with this note and education documentation for this visit. [facility]06-21-2024 Nurse Note* Gurjit Drummond RN - 02/02/2024 1:50 PM EDT Pt here for Vascular. No needs voiced at present time. [facility]06-21-2024 Nurse Note* Gurjit Drummond RN - 02/02/2024 1:50 PM EDT Pt here for Vascular. No needs voiced at present time. * Alistair Richards RN - 02/01/2024 8:08 PM EDT Images from the original note were not included. Event Note Patient: Ruth Smith : 1970 Age: 53 y.o. Length of Stay: 3 days Peripheral IV placed via US guidance in anterior right forearm. Successful in one attempt; flushes without resistance; + blood return; patient tolerated well; dressing CDI. 18 gauge, 1.75 inch catheter. Thank you, Alistair Richards RN Rapid Response: [facility] [place] Plan of care note * Plan of Care - Lian Silva RN - 02/02/2024 1:10 PM EDT Problem: Pain Goal: Patient goal is pain score less than 4, able to rest, and participant in treatment plan as appropriate Description: INTERVENTIONS: 1. Encourage patient or legal charter representative to report early pain and ask for pain medicine when needed 2. Assess pain using appropriate pain scale and include the scale used when documenting 3. Administer analgesics based on type and severity of pain and evaluate response within appropriate time frame 4. Implement non-pharmacological measures as appropriate and evaluate response 5. Consider cultural and social influences on pain and pain management 6. Notify LIP if interventions ineffective or patient reports new pain 7. Monitor vital signs including pulse ox 8. Reassess pain per policy 9. Teach patient or legal charter representative interventions for comforting Outcome: Progressing Note: Evaluation of progress towards goal: Verbalizes adequate comfort level. Currently denies pain. Please see MAR for pain management orders. Problem: Safety Goal: Patient will be injury free during hospitalization Description: INTERVENTIONS: 1. Assess patient's risk for falls and implement fall prevention plan of care per policy 2. Provide and maintain a safe environment 3. Proper use of double Identifiers 4. Medication administration using the 5 rights 5. Hand hygiene 6. Specimens are labeled at the bedside 7. Instruct patient/ patient charter representative about use of safety devices 8. Include patient/ patient charter representative in decisions related to safety Outcome: Progressing Note: Evaluation of progress towards goal: Proper identifiers used with patient care and medicationadministration. Remains free of injury during shift. Problem: Infection Goal: Absence of infection during hospitalization Description: Interventions: 1. Assess and monitor for signs and symptoms of infection 2. Monitor lab/diagnostic results 3. Monitor all insertion sites i.e., indwelling lines, tubes and drains 4. Monitor endotracheal (as able) and nasal secretions for changes in amount and color 5. Administer medications as ordered 6. Instruct and encourage patient and family to use good hand hygiene technique 7. Identify and instruct patient/patient charter representative in use of appropriate isolation precautionsfor identified infection/symptoms 8. Provide and discuss with patient/patient charter representative on educational MDRO sheet 9. Encourage and monitor nutritional status daily and consult maxillofacial pathology if indicated 10. Implement neutropenic guidelines as needed 11. Review exposure to history of communicable disease and recent travel history on admission 12. Encourage annual influenza vaccine 13. Encourage pneumonia vaccine Outcome: Progressing Note: Evaluation of progress towards goal: Skin integrity remains in stable condition; remains w/o ss of infection, fever, pain, or increased discomfort. Problem: Knowledge Deficit Goal: Patient/patient charter representative demonstrates understanding of disease process, treatment plan,medications, and discharge instructions Description: INTERVENTIONS 1. Complete learning assessment and assess knowledge base 2. Provide teaching at level of understanding 3. Provide teaching via preferred learning method(s) Outcome: Progressing Note: Evaluation of progress towards goal: Verbalizes understanding of current treatment plan as educated. Will continue to educate for understanding. Problem: Discharge Planning Goal: Discharge to post-acute care, other facility, or home with appropriate resources Description: Patient's goal is: INTERVENTIONS 1. Conduct assessment to determine patient/family and health care team treatment goals, and need for post-acute services based on payer coverage, community resources, and patient preferences, and barriers to discharge 2. Coordinate with Social work, Care Navigation, and Utilization Review to arrange appropriate level of services according to patient's needs based on patient preference and payer coverage in collaboration with the physician and health care team 3. Address psychosocial, clinical, and financial barriers to discharge as identified in assessment in conjunction with the patient/family and health care team 4. Consult appropriate ancillary services (i.e.. PT/OT/ST, etc) as needed 5. Communicate with and update the patient/family, physician, and health care team regarding progress on the discharge plan 6. Identify discharge learning needs (meds, wound care, etc). 7. Arrange for needed discharge transportation as appropriate Outcome: Progressing Note: Evaluation of progress towards goal: Discharge planning in process; will continue to monitor for discharge needs. Problem: Potential for Compromised Skin Integrity Goal: Skin integrity is maintained or improved Description: Patient's goal is: INTERVENTIONS 1. Perform initial skin assessment on admission and as needed 2. Turn patient every 2 hours and PRN 3. Relieve pressure to bony prominences 4. Avoid shearing 5. Keep skin clean and dry 6. Alternate a full bath with partial baths for elderly 7. Apply lotion/moisturizer on skin 8. Monitor patient's hygiene practices 9. Float heels 10. Collaborate with interdisciplinary team and initiate plans and interventions as needed Outcome: Progressing Note: Evaluation of progress towards goal: No new skin breakdown at this time continue to monitor for signs of new breakdown Goal: Patient's nutritional intake is adequate Description: Patient's goal is: INTERVENTIONS 1. Assess and monitor food intake and supplements, patient food preferences, nausea, vomiting, labs, oral cavity (gums, teeth, tongue, mucosa), proper denture fit, and cultural beliefs 2. Monitor for signs of hypoglycemia and hyperglycemia 3. Collaborate with interdisciplinary team and initiate plan and interventions as ordered 4. Monitor patient's weight 5. Assist patient with meals/food selection 6. Assist patient with eating 7. Allow adequate time for meals 8. Provide pleasant environment during mealtime 9. Increase social contact during mealtimes 10. Plan activities to conserve energy 11. Encourage/perform oral hygiene as appropriate 12. Encourage patient to take dietary supplement as ordered 13. Collaborate with clinical maxillofacial pathology 14. Include patient/ patient's charter representative in decisions related to nutrition Outcome: Progressing Note: Evaluation of progress towards goal: Adequate nutritional intake per shift. Problem: Urinary Incontinence Goal: Perineal skin integrity is maintained or improved Description: INTERVENTIONS 1. Assess genitourinary system, perineal skin, labs (urinalysis), and history of incontinence to include past management, aggravating, and alleviating factors 2. Keep skin clean and dry 3. Apply skin protectant 4. Develop skin care regimen 5. Provide privacy when changing patients incontinence device to maintain their dignity 6. Consider placing an indwelling catheter 7. Collaborate with interdisciplinary team and initiate plans and interventions as needed Outcome: Progressing Note: Evaluation of progress towards goal: No new skin breakdown at this time continue to monitor for signs of new breakdown Problem: Glucose Imbalance Goal: Clinical indication of glucose balance is achieved Description: Patient's goal is: INTERVENTIONS 1. Monitor blood glucose levels as ordered 2. Administer medications as ordered 3. Notify physician of ineffective treatment plan Outcome: Progressing Note: Evaluation of progress towards goal: Lab values monitored per shift; replacements provided asneeded or required. Will continue to monitor electrolyte values. Goal: Patient's discharge needs are met Description: Patient's goal is: INTERVENTIONS 1. Assess patient for self-management skills 2. Encourage participation in diabetes management 3. Identify potential discharge barriers on admission and throughout hospital stay 4. Involve patient/S.O. in discharge planning process 5. Communicate referral to special educator as appropriate 6. Communicate referral to maxillofacial pathology as appropriate 7. Collaborate with case management/social worker health services for discharge needs Outcome: Progressing Note: Evaluation of progress towards goal: Discharge planning in process; will continue to monitor for discharge needs. Problem: Moderate - High Risk Fall Score Description: Arredondo Fall Score of =/> 25 or indicated by [facility] Assessment Goal: Patient should be free from fall Description: Interventions: 1. [place] to environment 2. Hourly rounds addressing the 4 P's (Pain, Positioning, Possessions, Potty) 3. Clear area of hazards (spills, clutter, electrical cords, unnecessary equipment) 4. Place equipment (bed & TV controls, call light, phone, urinal) within reach 5. Encourage patient to wear glasses and hearing aides as appropriate 6. Maintain bed in lowest position 7. Lock wheels on bed/wheelchair 8. Provide adequate lighting, including night light 9. Assess need for additional bedding, food/fluids, pain med's prior to sleep/routinely 10. Provide gripper slippers or personal non-skid footwear 11. Teach patient and patient charter representative to maintain environment for safety and engage in all aspects of fall prevention program 12. Remind patient to call for help before getting out of bed 13. Initiate bed/chair/exit alarms supportive devices as appropriate, (chair wedge, no-skid floor mat, raised edge mattress, hip protectors) 14. Locate patient bed assignment for optimal visualization 15. Evaluate and identify Safe Patient Handling Equipment needs 16. Provide supervision when out of bed or chair 17. Utilize gait belt as needed to assist with ambulation 18. Place adaptive equipment (cane, walker) within reach 19. Request patient charter representative bring adaptive equipment/mobility aids from home or obtain and provide as needed 20. Consult pharmacy regarding effects of med's affecting mobility, cognition, and alternatives 21. Obtain physician order for PT if risk factors associated with mobility are present 22. Obtain physician order for OT as appropriate 23. Utilize diversional activities 24. Educate patient and patient charter representative how to maintain a safe environment during visitationtimes (notify nurse prior to leaving bedside) 25. Consider appropriateness of medical or non-medical librarian 26. Set up voiding schedule as appropriate (every 2 hours) Outcome: Progressing Note: Evaluation of progress towards goal: Call light within reach. Remains free of fall or injury.Environment free of clutter. [facility] [id number] Progress note* Discharge Planning Note - JEWEL Harrington - 02/02/2024 12:06 PM EDT DISCHARGE PLANNING NOTE Patient discussed today in daily transition rounds. Current Discharge Plan; [facility]. Current Barriers: pain control. SW requested transport for 2pm tomorrow for DC. - JEWEL HARRINGTON 02/02/24 12:06 PM [facility] [id number] Progress note* PT/OT/THERMAL SURFACING MACHINE OPERATOR - Nas Lima PTA - 02/02/2024 8:13 AM EDT Physical Therapy Treatment Discharge Recommendations PT Recommendations: Inpatient Rehab 6 Clicks: Basic Mobility Turning from your back to your side while in a flat bed without using bed rails?: A lot Moving from lying on your back to sitting on side of flat bed without using bed rails?: A lot Moving to and from bed to a chair (including w/c)?: A lot Standing up from a chair using your arms (e.g. w/c or bedside chair)?: A lot To walk in hospital room?: A lot Climbing 3-5 steps with a railing?: Total Scoring 6 Clicks: Basic Mobility Raw Score: 11 CMS G Code Modifier: CL PT Treatment/Interventions: Functional transfer training, LE strengthening/ROM, Endurance training,Patient/family training, Equipment eval/education, Balance, Stair training, Bed mobility, Gait training, Functional activities PT Frequency: Twice a Day PT Duration: LOS Patient Response to Treatment: Slow progress, decreased activity tolerance Assessment Patient Assessment Therapy Problem List: Decreased balance, Decreased endurance, Decreased mobility, Decreased safe judgement during ADL, Decreased LE ROM, Decreased LE strength Patient Response to Treatment: Slow progress, decreased activity tolerance Mood/Affect: Appropriate for circumstances Rehab Prognosis: Good, With continued PT status post acute discharge Visit RN Communication: Yes Medical Record Reviewed: Yes PT Type of Visit: Treatment Precautions Activity: Early mobility pass; okay to see per RN Equipment: Gait belt, RW Weight Bearing Status: WBAT RLE Telemetry/Paper Machine Back Tender: Yes Other: fall risk Pain Assessment Pain Assessment: 0-10 Pain Score: 9 Pain Type: Acute pain, Surgical pain Pain Location: Hip, Leg Pain Orientation: Right Effect of Pain on Daily Activities: comfort, mobility Patient's Stated Pain Goal: No pain Pain Intervention(s): Repositioned, Ambulation/increased activity, Elevated, Cold applied Response to Interventions: Quiet, No grimacing Cognition Orientation Level: Oriented X4 Bed Mobility Other: Patient in recliner at beginning and end of session, call light left near. BLEs elevated with ice to R hip. RN notified of patient location and response to treatment. Transfers Sit to Stand: Min assist, Verbal cues, Tactile cues (x2) Stand to Sit: Min assist, Verbal cues, Tactile cues (x2) Other: Patient cued for hand placement/technique for safe sit<>stand transfers- Min Ax2 neededto complete full stand from level bed height. Cues to reach back prior to sitting-Min Ax2 offered to prevent uncontrolled descend when sitting. Gait Pattern: Decreased jesusita, Antalgic gait, R Decreased heel strike, L Decreased heel strike, R Decreased foot clearance, L Decreased foot clearance, L Decreased stance time, R Decreased stance time, R Flexed knee Gait Assistance: Mod assist, Standby assist (Mod A +SBA for close recliner follow\) Assistive Device: Rolling walker Gait Distance: 10ftx1 Limiting Factors to Gait: Fatigue, Weakness, Pain 2 Turns: Not attempted d/t safety concerns Other: Patient demos major difficulties lifting and advancing BLEs this session- Observable B knee flexion/buckling throughout-Worse as patient fatigued. Cues for AD proximity to increase safety and stability within walker frame-Mod Ax1 offered for safety and standing support throughout +SBA for close recliner follow. no major LOB noted. Balance Sitting Balance: Static: Fair Sitting Balance: Dynamic: Fair (-) Standing Balance: Static: Poor Standing Balance: Dynamic: Poor Other: BUE support on RW with Mod Ax1 for safety and standing support during ambulation-Pt. demos major difficulties completing short range distance due to pain/weakness. B knee buckling noted without major LOB. Deferred additional ambulation due to safety concerns. 02/02/24 0837 LE Supine LE supine exercises performed? Yes Ankle pumps X Quad sets X Supine heel slides AAROM RLE Hip abduction AAROM RLE Other ROM limited by pain Repetitions 10 LE Seated LE seated exercises performed? Yes Ankle pumps X Long arc quads AAROM LLE Seated marching unable to tolerate RLE Other AAROM to complete through limited ROM Repetitions 10 Activity Tolerance Endurance: Tolerates 30 minutes activity with rest breaks Other: Extra time/effort needed to complete all functional mobility due to weakness/lethargy/pain. Limited/poor ambulation tolerance-Increased need compared to previous session-Deferred additional ambulation due to safety concerns. AAROM needed to complete RLE exercises through end range-Limited by pain Plan Physical Therapy Care Plan Physical Therapy Care Plan (Active) Template: PT - Physical Therapy Problem: Activity Tolerance Dates: Start: 01/31/24 Disciplines: PT Goal: Tolerate > 30 minutes of activity WITH rest breaks Dates: Start: 01/31/24 Expected End: 02/14/24 Description: Goal Description: Disciplines: PT Outcomes Date/Time User Outcome 02/02/24 0937 Nas Lima, SHERYL Progressing 02/01/24 1525 Nick Fernandez PTA Progressing 02/01/24 1140 Nick Fernandez PTA Progressing 01/31/24 1545 Nick Fernandze PTA Progressing Goal Note filed on 02/01/24 1525 by Nick Fernandez PTA Evaluation of progress towards goal: Problem: Bed Mobility Dates: Start: 01/31/24 Disciplines: PT Goal: Patient will perform bed mobility with Minimum Assist Dates: Start: 01/31/24 Expected End: 02/14/24 Description: Goal Description: Disciplines: PT Outcomes Date/Time User Outcome 02/01/24 1525 Nick Fernandez PTA Progressing 02/01/24 1140 Nick Fernandez PTA Progressing Goal Note filed on 02/01/24 1525 by Nick Fernandez PTA Evaluation of progress towards goal: Problem: Gait Dates: Start: 01/31/24 Disciplines: PT Goal: Patient will perform gait with Contact Guard Dates: Start: 01/31/24 Expected End: 02/14/24 Description: With__rw__,__150__feet Goal Description: Disciplines: PT Outcomes Date/Time User Outcome 02/02/24 0937 Nas Lima PTA Not Progressing 02/01/24 1525 Nick Fernandez PTA Progressing 02/01/24 1140 Nick Fernandez PTA Not Progressing 01/31/24 1545 Nick Fernandez PTA Progressing Goal Note filed on 02/01/24 1525 by Nick Fernandez PTA Evaluation of progress towards goal: Problem: Stairs/Curb Dates: Start: 01/31/24 Disciplines: PT Goal: Patient will perform stairs/curb with Minimum Assist Dates: Start: 01/31/24 Expected End: 02/14/24 Description: ___1__steps,_rw no____hand rails Goal Description: Disciplines: PT Problem: Standing Balance Dates: Start: 01/31/24 Disciplines: PT Goal: Improve balance to good Dates: Start: 01/31/24 Expected End: 02/14/24 Description: Static Dynamic- with support of rw Disciplines: PT Outcomes Date/Time User Outcome 02/02/24 0937 Nas Lima, LIVE IN HOUSEKEEPER Not Progressing 02/01/24 1525 Nick Fernandez PTA Progressing 02/01/24 1140 Nick Fernandez PTA Not Progressing 01/31/24 1545 Nick Fernandez PTA Progressing Goal Note filed on 02/01/24 1525 by Nick Fernandez PTA Evaluation of progress towards goal: Problem: Strength Dates: Start: 01/31/24 Disciplines: PT Goal: Improve strength Dates: Start: 01/31/24 Expected End: 02/14/24 Description: Of extremity/ location:Complete 20 reps bilat LE ex's To facilitate: Disciplines: PT Outcomes Date/Time User Outcome 02/02/24 0937 Nas Lima, LIVE IN HOUSEKEEPER Progressing 02/01/24 1525 Nick Fernandez PTA Progressing 02/01/24 1140 Nick Fernandez PTA Not Progressing 01/31/24 1545 Nick Fernandez PTA Progressing Goal Note filed on 02/01/24 1525 by Nick Fernandez PTA Evaluation of progress towards goal: Problem: Transfers Dates: Start: 01/31/24 Disciplines: PT Goal: Patient will perform transfers with Contact Guard Dates: Start: 01/31/24 Expected End: 02/14/24 Description: Goal Description: Disciplines: PT Outcomes Date/Time User Outcome 02/02/24 0937 Nas Lima, LIVE IN HOUSEKEEPER Progressing 02/01/24 1525 Nick Fernandez PTA Progressing 02/01/24 1140 Nick Fernandez PTA Not Progressing 01/31/24 1545 Nick Fernandez PTA Progressing Goal Note filed on 02/01/24 1525 by Nick Fernandez PTA Evaluation of progress towards goal: Physical Therapy Care Plan (Resolved) There are no resolved problems. Principal Problem: Closed fracture of right hip, initial encounter ([facility]) Active Problems: Myah-prosthetic fracture around prosthetic hip Associated attestation - Carlos Brar PT - 02/02/2024 3:00 PM EDT I have reviewed and agree with this note and education documentation for this visit. [facility] [id number] Progress note* PT/OT/THERMAL SURFACING MACHINE OPERATOR - Ludy Ireland OTR/Lanie - 02/02/2024 8:13 AM EDT Occupational Therapy Treatment Discharge Recommendations OT Recommendations : Inpatient Rehab 6 Clicks: Daily Activity Putting on and taking off regular lower body clothing?: A lot Bathing (including washing, rinsing, drying)?: A lot Toileting, which includes using toilet, bedpan or urinal?: A little Putting on and taking off regular upper body clothing?: A little Taking care of personal grooming such as brushing teeth?: None Eating meals?: None Scoring Daily Activity Raw Score: 18 CMS G Code Modifier: CK OT Treatment/Interventions: ADL retraining, Functional transfer training, LE strengthening/ROM, UE strengthening/ROM, Endurance training, Patient/family training, Equipment eval/education, Balance, Bed mobility, Compensatory technique education, Functional activities OT Frequency: Twice a Day OT Duration: Until discharge Assessment Patient Assessment Therapy Problem List: Decreased ADL status, Decreased balance, Decreased gross motor, Decreased mobility, Decreased self-care trans, Decreased UE strength, Decreased LE strength, Decreased endurance Patient Response to Treatment: Slow progress, decreased activity tolerance Mood/Affect: Appropriate for circumstances Rehab Prognosis: Good, With continued OT status post acute discharge Visit RN Communication: Yes Medical Record Reviewed: Yes OT Type of Visit: Treatment Precautions Activity: early mobility: pass; ok to see per RN Equipment: RW, gait belt Weight Bearing Status: WBAT Rt LE Telemetry/Paper Machine Back Tender: Yes Oxygen Used: room air Other: fall risk Pain Assessment Pain Assessment: 0-10 Pain Score: 9 Pain Type: Acute pain, Surgical pain Pain Location: Hip, Leg Pain Orientation: Right Pain Intervention(s): Cold applied, Repositioned, Ambulation/increased activity, Emotional support Response to Interventions: Pain unchanged, Quiet ADL / IADL Other: ADLs were not the focus of this session. Home Management - IADL Other: ADLs were not the focus of this session. Hearing / Speech / Vision Hearing: Within Functional Limits Speech: Within Functional Limits Current Vision: Wears glasses only for reading Cognition Orientation Level: Oriented X4 Bed Mobility Other: NT; pt up in chair at begining and end of session with call light in reach , all needs met. RN aware/present at end to pass meds. Transfers Sit to Stand: Min assist (x2) Stand to Sit: Min assist (x2) Other: Pt completed STS from recliner with min x2 assist for safety and due to pain/weakness. Cues for hand placement. Pt demod poor ability to bring hands from chair up to RW. Gait Gait Assistance: Mod assist (with close chair follow) Assistive Device: Rolling walker Gait Distance: 10 ft Limiting Factors to Gait: Fatigue, Weakness, Pain Other: pt completed very unsafe functional mobility this date. pt demod buckling in BLEs with poor ability to advance BLEs during gait. close chair follow was required and pt required sitting in chair due to safety concerns. Balance Sitting Balance: Static: Fair Sitting Balance: Dynamic: Fair (-) Standing Balance: Static: Poor Standing Balance: Dynamic: Poor Other: BUE support on RW during standing balance. Activity Tolerance Endurance: Tolerates <30 minutes activity WITHOUT vital sign changes Other: Poor overall tolerance. Upon entering room, pt complaining of pain and stating he has been left alone for the last 10 hours. pt is very agitated throughout. encouragement and emotional supportattempted with little relief to pt. increased time and effort for all tasks this date. poor safety awareness. Plan Occupational Therapy Care Plan Occupational Therapy Care Plan (Active) Template: OT - Occupational Therapy Problem: Activity Tolerance Dates: Start: 01/31/24 Disciplines: OT Goal: Tolerate > 30 minutes of activity WITHOUT rest breaks Dates: Start: 01/31/24 Expected End: 02/28/24 Description: Goal Description: Disciplines: OT Outcomes Date/Time User Outcome 02/02/24 0953 Ludy Ireland, OTR/L Not Progressing 02/01/24 1548 Azul Medrano, SERVIN/L Progressing 02/01/24 1328 Azulvanessa Medrano, SERVIN/L Not Progressing 01/31/24 1609 Azul Mitchell, SERVIN/L Progressing Goal Note filed on 02/02/24 0953 by Ludy Ireland OTR/L Evaluation of progress towards goal: Problem: Bed Mobility Dates: Start: 01/31/24 Disciplines: OT Goal: Patient will perform bed mobility with Modified [place] Dates: Start: 01/31/24 Expected End: 02/28/24 Description: Goal Description: Disciplines: OT Outcomes Date/Time User Outcome 02/01/24 1328 Azul Mitchell, SERVIN/L Progressing Goal Note filed on 02/01/24 1328 by Azul Medrano SERVIN/Lanie Evaluation of progress towards goal: Problem: Functional Mobility Dates: Start: 01/31/24 Disciplines: OT Goal: Patient will perform functional mobility with Modified [place] Dates: Start: 01/31/24 Expected End: 02/28/24 Description: Goal Description: Disciplines: OT Outcomes Date/Time User Outcome 02/01/24 1548 Azul Mitchell, SERVIN/L Progressing 02/01/24 1328 Azul Mitchell, SERVIN/L Not Progressing 01/31/24 1609 Azul Mitchell, SERVIN/L Progressing Goal Note filed on 02/02/24 0953 by Ludy Ireland OTR/L Evaluation of progress towards goal: Problem: Other (Customize) Dates: Start: 01/31/24 Disciplines: OT Goal: Improve Dates: Start: 01/31/24 Expected End: 02/28/24 Description: Goal Description: Complete ADLs [place] with AE/DME Disciplines: OT Problem: Sitting Balance Dates: Start: 01/31/24 Disciplines: OT Goal: Improve balance to good Dates: Start: 01/31/24 Expected End: 02/28/24 Description: Static Dynamic Disciplines: OT Outcomes Date/Time User Outcome 02/02/24 0953 Ludy Ireland OTR/Lanie Progressing 02/01/24 1548 Azul Mitchell, SERVIN/L Progressing 02/01/24 1328 Azul Mitchell, SERVIN/L Not Progressing 01/31/24 1609 Azul Mitchell, SERVIN/L Progressing Goal Note filed on 02/02/24 0953 by Ludy Ireland OTR/L Evaluation of progress towards goal: Problem: Standing Balance Dates: Start: 01/31/24 Disciplines: OT Goal: Improve balance to good Dates: Start: 01/31/24 Expected End: 02/28/24 Description: Static Dynamic Disciplines: OT Outcomes Date/Time User Outcome 02/02/24 0953 WILLARD Banda/Lanie Not Progressing 02/01/24 1548 Azul Mitchell, SERVIN/L Progressing 02/01/24 1328 Azul Mitchell, SERVIN/L Not Progressing 01/31/24 1609 Azul Mitchell, SERVIN/L Progressing Goal Note filed on 02/02/24 0953 by WILLARD Banda/Lanie Evaluation of progress towards goal: Problem: Strength Dates: Start: 01/31/24 Disciplines: OT Goal: Improve strength Dates: Start: 01/31/24 Expected End: 02/28/24 Description: Of extremity/ location: Tolerate bilat UE exercises to increase strength and endurancefor self care tasks To facilitate: Disciplines: OT Outcomes Date/Time User Outcome 02/01/24 1548 Azul Mitchell, SERVIN/L Progressing 01/31/24 1609 Azul Mitchell, SERVIN/L Not Progressing Goal Note filed on 02/01/24 1548 by Azul Medrano SERVIN/L Evaluation of progress towards goal: Problem: Transfers Dates: Start: 01/31/24 Disciplines: OT Goal: Patient will perform transfers with Modified [place] Dates: Start: 01/31/24 Expected End: 02/28/24 Description: Goal Description: Disciplines: OT Outcomes Date/Time User Outcome 02/02/24 0953 WILLARD Banda/Lanie Progressing 02/01/24 1548 Azul Mitchell, SERVIN/L Progressing 02/01/24 1328 Azul Mitchell, SERVIN/L Not Progressing 01/31/24 1609 Azul Mitchell, SERVIN/L Progressing Goal Note filed on 02/02/24 0953 by WILLARD Banad/Lanie Evaluation of progress towards goal: Occupational Therapy Care Plan (Resolved) There are no resolved problems. Principal Problem: Closed fracture of right hip, initial encounter ([facility]) Active Problems: Myah-prosthetic fracture around prosthetic hip [facility]06-20-2024 Plan of care note* Plan of Care - Lacey Singer RN - 02/01/2024 10:15 PM EDT Problem: Pain Goal: Patient goal is pain score less than 4, able to rest, and participant in treatment plan as appropriate Description: INTERVENTIONS: 1. Encourage patient or legal charter representative to report early pain and ask for pain medicine when needed 2. Assess pain using appropriate pain scale and include the scale used when documenting 3. Administer analgesics based on type and severity of pain and evaluate response within appropriate time frame 4. Implement non-pharmacological measures as appropriate and evaluate response 5. Consider cultural and social influences on pain and pain management 6. Notify LIP if interventions ineffective or patient reports new pain 7. Monitor vital signs including pulse ox, end-tidal CO2 based on pain intervention 8. Reassess pain per policy 9. Teach patient or legal charter representative interventions for comforting Outcome: Progressing Note: Evaluation of progress towards goal: Patient's pain is adequately managed by pharmacological/non-pharmacological interventions. Patient reports that these interventions are helpful and pain is being managed appropriately. Problem: Safety Goal: Patient will be injury free during hospitalization Description: INTERVENTIONS: 1. Assess patient's risk for falls and implement fall prevention plan of care per policy 2. Provide and maintain a safe environment 3. Proper use of double Identifiers 4. Medication administration using the 5 rights 5. Hand hygiene 6. Specimens are labeled at the bedside 7. Instruct patient/ patient charter representative about use of safety devices 8. Include patient/ patient charter representative in decisions related to safety Outcome: Progressing Note: Evaluation of progress towards goal: Assessed patient's risk for falls and implemented fall prevention plan of care per policy. Provided and maintained a safe environment. Pt remains free from falls and injury during this stay. [facility]* Alistair Richards RN - 02/01/2024 8:08 PM EDT Images from the original note were not included. Event Note Patient: Ruth Smith : 1970 Age: 53 y.o. Length of Stay: 3 days Peripheral IV placed via US guidance in anterior right forearm. Successful in one attempt; flushes without resistance; + blood return; patient tolerated well; dressing CDI. 18 gauge, 1.75 inch catheter. Thank you, Alistair Richards RN Rapid Response: [facility]06-20-2024 Progress note* PT/OT/THERMAL SURFACING MACHINE OPERATOR - NALLELY Nielsen - 02/01/2024 3:49 PM EDT Occupational Therapy Treatment Discharge Recommendations OT Recommendations : Inpatient Rehab Inpatient Rehab Criteria: All inpatient rehab criteria expected to be met (pt. would benefit from further IPR improve strength, endurance and balance for ADL/mobility tasks.) 6 Clicks: Daily Activity Putting on and taking off regular lower body clothing?: A lot Bathing (including washing, rinsing, drying)?: A lot Toileting, which includes using toilet, bedpan or urinal?: A little Putting on and taking off regular upper body clothing?: A little Taking care of personal grooming such as brushing teeth?: None Eating meals?: None Scoring Daily Activity Raw Score: 18 CMS G Code Modifier: CK 02/01/24 1440 UE ROM UE ROM exercises performed? Yes Scapular retraction x Shoulder shrugs x Shoulder horizontal abduction/adduction x Elbow flexion/extension x Forearm supination/pronation x Other BUE AROM as nabil - pain with movement. Repetitions 10-15 OT Treatment/Interventions: ADL retraining, Functional transfer training, LE strengthening/ROM, UE strengthening/ROM, Endurance training, Patient/family training, Equipment eval/education, Balance, Bed mobility, Compensatory technique education, Functional activities OT Frequency: Twice a Day Assessment Patient Assessment Patient Response to Treatment: Slow progress, decreased activity tolerance Visit RN Communication: Yes Medical Record Reviewed: Yes OT Type of Visit: Treatment Precautions Activity: Up to chair TID and ambulate BID Equipment: gait belt, RW Weight Bearing Status: WBAT Rt LE Telemetry/Paper Machine Back Tender: Yes Oxygen Used: room air Other: fall risk Pain Assessment Pain Assessment: 0-10 Pain Score: 8 Pain Type: Acute pain, Surgical pain Pain Location: Hip, Leg Pain Orientation: Right Pain Descriptors: Sharp, Shooting Pain Frequency: Constant/continuous Pain Intervention(s): Repositioned, Ambulation/increased activity Response to Interventions: Quiet, No grimacing ADL / IADL Footwear Assistance: Total assist Footwear Deficit: R sock, L sock, Don/doff compression hose Other: pt. required total A to don/doff hospital socks and joseluis hose. Home Management - IADL Other: pt. required total A to don/doff hospital socks and joseluis hose. Hearing / Speech / Vision Hearing: Within Functional Limits Speech: Within Functional Limits Current Vision: Wears glasses only for reading Cognition Orientation Level: Oriented X4 Other: pt. very anxious - requires increased time/effort to complete all tasks. Bed Mobility Supine to Sit: Mod assist (of 2) Sit to Supine: Unable to assess Other: did not test - pt. sitting in chair upon arrival and left in chair at end of tx. session. Call light in reach, tray table near and RN aware. Transfers Sit to Stand: Min assist (of 2) Stand to Sit: Min assist (of 2) Bed to Chair: Min assist (of 2) Other: pt. demo proper hand placement and good eccentric control when sitting. No c/o dizziness noted. Gait Gait Assistance: Contact guard assist Assistive Device: Rolling walker Gait Distance: Short distance of 12 feet. Other: pt. required close chair follow for safety - increased effort to complete short distance. Cues for posture awareness and safety with manuevering RW. Balance Sitting Balance: Static: Good Sitting Balance: Dynamic: Fair Standing Balance: Static: Fair Standing Balance: Dynamic: Fair (-) Other: with UE support on RW in standing Activity Tolerance Endurance: Tolerates 30 minutes activity with rest breaks Other: rest breaks required between all activity this date - tx. session limited d/t fatigue, pain and decreased endurance. Plan Occupational Therapy Care Plan Occupational Therapy Care Plan (Active) Template: OT - Occupational Therapy Problem: Activity Tolerance Dates: Start: 01/31/24 Disciplines: OT Goal: Tolerate > 30 minutes of activity WITHOUT rest breaks Dates: Start: 01/31/24 Expected End: 02/28/24 Description: Goal Description: Disciplines: OT Outcomes Date/Time User Outcome 02/01/24 1548 Azul Medrano, SERVIN/L Progressing 02/01/24 1328 Azul Medrano, SERVIN/L Not Progressing 01/31/24 1609 Azul Medrano SERVIN/L Progressing Goal Note filed on 02/01/24 1548 by MALATHI Nielsen/Lanie Evaluation of progress towards goal: Problem: Bed Mobility Dates: Start: 01/31/24 Disciplines: OT Goal: Patient will perform bed mobility with Modified [place] Dates: Start: 01/31/24 Expected End: 02/28/24 Description: Goal Description: Disciplines: OT Outcomes Date/Time User Outcome 02/01/24 1328 Azul Medrano SERVIN/L Progressing Goal Note filed on 02/01/24 1328 by MALATHI Nielsen/Lanie Evaluation of progress towards goal: Problem: Functional Mobility Dates: Start: 01/31/24 Disciplines: OT Goal: Patient will perform functional mobility with Modified [place] Dates: Start: 01/31/24 Expected End: 02/28/24 Description: Goal Description: Disciplines: OT Outcomes Date/Time User Outcome 02/01/24 1548 Azul Medrano, SERVIN/L Progressing 02/01/24 1328 Azul Medrnao SERVIN/L Not Progressing 01/31/24 1609 Azul Medrano SREVIN/L Progressing Goal Note filed on 02/01/24 1548 by MALATHI Nielsen/Lanie Evaluation of progress towards goal: Problem: Other (Customize) Dates: Start: 01/31/24 Disciplines: OT Goal: Improve Dates: Start: 01/31/24 Expected End: 02/28/24 Description: Goal Description: Complete ADLs [place] with AE/DME Disciplines: OT Problem: Sitting Balance Dates: Start: 01/31/24 Disciplines: OT Goal: Improve balance to good Dates: Start: 01/31/24 Expected End: 02/28/24 Description: Static Dynamic Disciplines: OT Outcomes Date/Time User Outcome 02/01/24 1548 Azul Medrano, SERVIN/L Progressing 02/01/24 1328 Azul Medrano SERVIN/L Not Progressing 01/31/24 1609 Azul Medrano SERVIN/L Progressing Goal Note filed on 02/01/24 1548 by NALLELY Nielsen Evaluation of progress towards goal: Problem: Standing Balance Dates: Start: 01/31/24 Disciplines: OT Goal: Improve balance to good Dates: Start: 01/31/24 Expected End: 02/28/24 Description: Static Dynamic Disciplines: OT Outcomes Date/Time User Outcome 02/01/24 1548 Azul Mitchell, SERVIN/L Progressing 02/01/24 1328 Azul Mitchell, SERVIN/L Not Progressing 01/31/24 1609 Azul Mitchell, SERVIN/L Progressing Goal Note filed on 02/01/24 1548 by MALATHI Nielsen/Lanie Evaluation of progress towards goal: Problem: Strength Dates: Start: 01/31/24 Disciplines: OT Goal: Improve strength Dates: Start: 01/31/24 Expected End: 02/28/24 Description: Of extremity/ location: Tolerate bilat UE exercises to increase strength and endurancefor self care tasks To facilitate: Disciplines: OT Outcomes Date/Time User Outcome 02/01/24 1548 Azul Mitchell, SERVIN/L Progressing 01/31/24 1609 Azul Mitchell, SERVIN/L Not Progressing Goal Note filed on 02/01/24 1548 by MALATHI Nielsen/Lanie Evaluation of progress towards goal: Problem: Transfers Dates: Start: 01/31/24 Disciplines: OT Goal: Patient will perform transfers with Modified [place] Dates: Start: 01/31/24 Expected End: 02/28/24 Description: Goal Description: Disciplines: OT Outcomes Date/Time User Outcome 02/01/24 1548 Azul Medrano, SERVIN/L Progressing 02/01/24 1328 Azul Mitchell, SERVIN/L Not Progressing 01/31/24 1609 Azul Mitchell, SERVIN/L Progressing Goal Note filed on 02/01/24 1548 by MALATHI Nielsen/Lanie Evaluation of progress towards goal: Occupational Therapy Care Plan (Resolved) There are no resolved problems. Principal Problem: Closed fracture of right hip, initial encounter ([facility]) Active Problems: Myah-prosthetic fracture around prosthetic hip Associated attestation - Ludy Ireland OTR/L - 02/02/2024 7:41 AM EDT I have reviewed and agree with this note and education documentation for this visit. [employer] [id number] Progress note* PT/OT/THERMAL SURFACING MACHINE OPERATOR - Nick Fernandez, LIVE IN HOUSEKEEPER - 02/01/2024 3:39 PM EDT Physical Therapy Treatment (BID) Discharge Recommendations PT Recommendations: Inpatient Rehab Inpatient Rehab Criteria: All inpatient rehab criteria expected to be met 6 Clicks: Basic Mobility Turning from your back to your side while in a flat bed without using bed rails?: A lot Moving from lying on your back to sitting on side of flat bed without using bed rails?: A lot Moving to and from bed to a chair (including w/c)?: A lot Standing up from a chair using your arms (e.g. w/c or bedside chair)?: A lot To walk in hospital room?: A lot Climbing 3-5 steps with a railing?: Total Scoring 6 Clicks: Basic Mobility Raw Score: 11 CMS G Code Modifier: CL Patient Response to Treatment: Slow progress, decreased activity tolerance 02/01/24 1438 LE Seated LE seated exercises performed? Yes Ankle pumps x Long arc quads x Seated marching LLE only Other verbal and visual cues for proper technique Repetitions 10x Assessment Patient Assessment Patient Response to Treatment: Slow progress, decreased activity tolerance Visit RN Communication: Yes Medical Record Reviewed: Yes PT Type of Visit: Treatment (BID) Precautions Activity: Up to chair TID and ambulate BID Equipment: gait belt, RW Weight Bearing Status: WBAT Rt LE Telemetry/Paper Machine Back Tender: Yes Oxygen Used: room air Other: fall risk Pain Assessment Pain Assessment: 0-10 Pain Score: 8 Pain Type: Acute pain, Surgical pain Pain Location: Hip, Leg Pain Orientation: Right Pain Radiating Towards: to knee Pain Intervention(s): Repositioned, Ambulation/increased activity Response to Interventions: Pain unchanged, Quiet Bed Mobility Supine to Sit: Mod assist (x2) Sit to Supine: Unable to assess (pt left sititng up in bedside chair with light and tray near.) Other: NT, pt found and left sitting up in bedside chair with light and tray near. Transfers Sit to Stand: Min assist (x2) Stand to Sit: Min assist (x2) Bed to Chair: Min assist (x2, assist for RLE advancement) Other: cues for proper RLE foot placement Gait Base of Support: Within Functional Limits Pattern: Decreased jesusita, Antalgic gait, R Decreased heel strike, L Decreased heel strike, R Decreased foot clearance, L Decreased foot clearance, Forward trunk, R Decreased stance time, R Flexed knee Gait Assistance: Contact guard assist Assistive Device: Rolling walker Gait Distance: 12' Limiting Factors to Gait: Fatigue, Weakness, Pain Other: close chair follow, cues for RW use Balance Sitting Balance: Static: Fair (+) Sitting Balance: Dynamic: Fair Standing Balance: Static: Fair Standing Balance: Dynamic: Fair (-) Other: BUE support using RW Activity Tolerance Endurance: Tolerates >30 minutes activity with rest breaks Other: rest breaks as needed Plan Physical Therapy Care Plan Physical Therapy Care Plan (Active) Template: PT - Physical Therapy Problem: Activity Tolerance Dates: Start: 01/31/24 Disciplines: PT Goal: Tolerate > 30 minutes of activity WITH rest breaks Dates: Start: 01/31/24 Expected End: 02/14/24 Description: Goal Description: Disciplines: PT Outcomes Date/Time User Outcome 02/01/24 1525 Nick Fernandez PTA Progressing 02/01/24 1140 Nick Fernandez PTA Progressing 01/31/24 1545 Nick Fernandez PTA Progressing Goal Note filed on 02/01/24 1525 by Nick Fernandez PTA Evaluation of progress towards goal: Problem: Bed Mobility Dates: Start: 01/31/24 Disciplines: PT Goal: Patient will perform bed mobility with Minimum Assist Dates: Start: 01/31/24 Expected End: 02/14/24 Description: Goal Description: Disciplines: PT Outcomes Date/Time User Outcome 02/01/24 1525 Nick Fernandez PTA Progressing 02/01/24 1140 Nick Fernandez PTA Progressing Goal Note filed on 02/01/24 1525 by Nick Fernandez PTA Evaluation of progress towards goal: Problem: Gait Dates: Start: 01/31/24 Disciplines: PT Goal: Patient will perform gait with Contact Guard Dates: Start: 01/31/24 Expected End: 02/14/24 Description: With__rw__,__150__feet Goal Description: Disciplines: PT Outcomes Date/Time User Outcome 02/01/24 1525 Nick Fernandez PTA Progressing 02/01/24 1140 Nick Fernandez PTA Not Progressing 01/31/24 1545 Nick Fernandez PTA Progressing Goal Note filed on 02/01/24 1525 by Nick Fernandez PTA Evaluation of progress towards goal: Problem: Stairs/Curb Dates: Start: 01/31/24 Disciplines: PT Goal: Patient will perform stairs/curb with Minimum Assist Dates: Start: 01/31/24 Expected End: 02/14/24 Description: ___1__steps,_rw no____hand rails Goal Description: Disciplines: PT Problem: Standing Balance Dates: Start: 01/31/24 Disciplines: PT Goal: Improve balance to good Dates: Start: 01/31/24 Expected End: 02/14/24 Description: Static Dynamic- with support of rw Disciplines: PT Outcomes Date/Time User Outcome 02/01/24 1525 Nick Fernandez PTA Progressing 02/01/24 1140 Nick Fernandez PTA Not Progressing 01/31/24 1545 Nick Fernandez PTA Progressing Goal Note filed on 02/01/24 1525 by Nick Fernandez PTA Evaluation of progress towards goal: Problem: Strength Dates: Start: 01/31/24 Disciplines: PT Goal: Improve strength Dates: Start: 01/31/24 Expected End: 02/14/24 Description: Of extremity/ location:Complete 20 reps bilat LE ex's To facilitate: Disciplines: PT Outcomes Date/Time User Outcome 02/01/24 1525 Nick Fernandez PTA Progressing 02/01/24 1140 Nick Fernandez PTA Not Progressing 01/31/24 1545 Nick Fernandez PTA Progressing Goal Note filed on 02/01/24 1525 by Nick Fernandez PTA Evaluation of progress towards goal: Problem: Transfers Dates: Start: 01/31/24 Disciplines: PT Goal: Patient will perform transfers with Contact Guard Dates: Start: 01/31/24 Expected End: 02/14/24 Description: Goal Description: Disciplines: PT Outcomes Date/Time User Outcome 02/01/24 1525 Nick Fernandez PTA Progressing 02/01/24 1140 Nick Fernandez PTA Not Progressing 01/31/24 1545 Nick Fernandez PTA Progressing Goal Note filed on 02/01/24 1525 by Nick Fernandez PTA Evaluation of progress towards goal: Physical Therapy Care Plan (Resolved) There are no resolved problems. Principal Problem: Closed fracture of right hip, initial encounter ([facility]) Active Problems: Myah-prosthetic fracture around prosthetic hip Associated attestation - Lindsay Infante, PT - 02/01/2024 3:54 PM EDT I have reviewed and agree with this note and education documentation for this visit. [facility] [id number] Progress note* PT/OT/THERMAL SURFACING MACHINE OPERATOR - MALATHI Nielsen/Lanie - 02/01/2024 1:29 PM EDT Occupational Therapy Treatment Discharge Recommendations OT Recommendations : Inpatient Rehab Inpatient Rehab Criteria: All inpatient rehab criteria expected to be met (pt. would benefit from further IPR to improve strenght, endurance and balance for ADL/mobilty tasks.) 6 Clicks: Daily Activity Putting on and taking off regular lower body clothing?: A lot Bathing (including washing, rinsing, drying)?: A lot Toileting, which includes using toilet, bedpan or urinal?: A lot Putting on and taking off regular upper body clothing?: A little Taking care of personal grooming such as brushing teeth?: None Eating meals?: None Scoring Daily Activity Raw Score: 17 [facility] G Code Modifier: CK OT Treatment/Interventions: ADL retraining, Functional transfer training, LE strengthening/ROM, UE strengthening/ROM, Endurance training, Patient/family training, Equipment eval/education, Balance, Bed mobility, Compensatory technique education, Functional activities OT Frequency: Twice a Day Assessment Patient Assessment Patient Response to Treatment: Slow progress, decreased activity tolerance Visit RN Communication: Yes Medical Record Reviewed: Yes OT Type of Visit: Treatment Precautions Activity: Up to chair TID and ambulate BID Equipment: gait belt, RW Weight Bearing Status: WBAT Rt LE Telemetry/Paper Machine Back Tender: Yes Oxygen Used: room air Other: fall risk Pain Assessment Pain Assessment: 0-10 Pain Score: 8 Pain Type: Acute pain, Surgical pain Pain Location: Hip, Leg Pain Orientation: Right Pain Descriptors: Sharp, Shooting Pain Frequency: Constant/continuous Pain Intervention(s): Repositioned, Ambulation/increased activity Response to Interventions: Quiet, No grimacing ADL / IADL Footwear Assistance: Total assist Footwear Deficit: R sock, L sock, Don/doff compression hose Other: pt. required total A to don/doff hospital socks and joseluis hose. Home Management - IADL Other: pt. required total A to don/doff hospital socks and joseluis hose. Hearing / Speech / Vision Hearing: Within Functional Limits Speech: Within Functional Limits Current Vision: Wears glasses only for reading Cognition Orientation Level: Oriented X4 Other: pt. very anxious - requires increased time/effort to complete all tasks. Bed Mobility Supine to Sit: Mod assist (of 2) Sit to Supine: Unable to assess Other: with HOB elevated - required mod A for trunk support/RLE to get OOB with increased time/effort to complete Pt. very slow and guarded d/t high pain level. Pt. left sitting in chair at end of tx. session with call light in reach, tray table near and RN aware. Transfers Sit to Stand: Min assist (of 2) Stand to Sit: Min assist (of 2) Bed to Chair: Min assist (of 2) Other: cues for proper hand and RLE placement. - no c/o dizziness noted. Gait Gait Assistance: Min assist (of 2) Assistive Device: Rolling walker Gait Distance: Short distance of 4 feet. Other: pt. very slow/guarded to increased pain. D/t increased difficulty - chair brought directly behind pt. for safety. Balance Sitting Balance: Static: Fair (+) Sitting Balance: Dynamic: Fair Standing Balance: Static: Fair (-) Standing Balance: Dynamic: Poor Other: pt sat unsupported for approx. 10 minutes prior to intiial stand working on sitting balance/endurance and trunk control. Activity Tolerance Endurance: Tolerates >30 minutes activity with rest breaks Other: rest breaks as needed Plan Occupational Therapy Care Plan Occupational Therapy Care Plan (Active) Template: OT - Occupational Therapy Problem: Activity Tolerance Dates: Start: 01/31/24 Disciplines: OT Goal: Tolerate > 30 minutes of activity WITHOUT rest breaks Dates: Start: 01/31/24 Expected End: 02/28/24 Description: Goal Description: Disciplines: OT Outcomes Date/Time User Outcome 02/01/24 1328 NALLELY Nielsen Not Progressing 01/31/24 1609 NALLELY Nielsen Progressing Goal Note filed on 02/01/24 1328 by MALATHI Nielsen/Lanie Evaluation of progress towards goal: Problem: Bed Mobility Dates: Start: 01/31/24 Disciplines: OT Goal: Patient will perform bed mobility with Modified [place] Dates: Start: 01/31/24 Expected End: 02/28/24 Description: Goal Description: Disciplines: OT Outcomes Date/Time User Outcome 02/01/24 1328 CHARU NielsenA/Lanie Progressing Goal Note filed on 02/01/24 1328 by MALATHI Nielsen/Lanie Evaluation of progress towards goal: Problem: Functional Mobility Dates: Start: 01/31/24 Disciplines: OT Goal: Patient will perform functional mobility with Modified [place] Dates: Start: 01/31/24 Expected End: 02/28/24 Description: Goal Description: Disciplines: OT Outcomes Date/Time User Outcome 02/01/24 1328 Azul Medrano SERVIN/L Not Progressing 01/31/24 1609 CHARU NielsenA/Lanie Progressing Goal Note filed on 02/01/24 1328 by MALATHI Nielsen/Lanie Evaluation of progress towards goal: Problem: Other (Customize) Dates: Start: 01/31/24 Disciplines: OT Goal: Improve Dates: Start: 01/31/24 Expected End: 02/28/24 Description: Goal Description: Complete ADLs [place] with AE/DME Disciplines: OT Problem: Sitting Balance Dates: Start: 01/31/24 Disciplines: OT Goal: Improve balance to good Dates: Start: 01/31/24 Expected End: 02/28/24 Description: Static Dynamic Disciplines: OT Outcomes Date/Time User Outcome 02/01/24 1328 Azul Medrano SERVIN/L Not Progressing 01/31/24 1609 Azul Medrano SERVIN/Lanie Progressing Goal Note filed on 02/01/24 1328 by MALATHI Nielsen/Lanie Evaluation of progress towards goal: Problem: Standing Balance Dates: Start: 01/31/24 Disciplines: OT Goal: Improve balance to good Dates: Start: 01/31/24 Expected End: 02/28/24 Description: Static Dynamic Disciplines: OT Outcomes Date/Time User Outcome 02/01/24 1328 Azul Medrano SERVIN/L Not Progressing 01/31/24 1609 NALLELY Nielsen Progressing Goal Note filed on 02/01/24 1328 by NALLELY Nielsen Evaluation of progress towards goal: Problem: Strength Dates: Start: 01/31/24 Disciplines: OT Goal: Improve strength Dates: Start: 01/31/24 Expected End: 02/28/24 Description: Of extremity/ location: Tolerate bilat UE exercises to increase strength and endurancefor self care tasks To facilitate: Disciplines: OT Outcomes Date/Time User Outcome 01/31/24 1609 NALLELY Nielsen Not Progressing Goal Note filed on 01/31/24 1609 by NALLELY Nielsen Evaluation of progress towards goal: Problem: Transfers Dates: Start: 01/31/24 Disciplines: OT Goal: Patient will perform transfers with Modified [place] Dates: Start: 01/31/24 Expected End: 02/28/24 Description: Goal Description: Disciplines: OT Outcomes Date/Time User Outcome 02/01/24 1328 NALLELY Nielsen Not Progressing 01/31/24 1609 NALLELY Nielsen Progressing Goal Note filed on 02/01/24 1328 by NALLELY Nielsen Evaluation of progress towards goal: Occupational Therapy Care Plan (Resolved) There are no resolved problems. Principal Problem: Closed fracture of right hip, initial encounter ([facility]) Active Problems: Myah-prosthetic fracture around prosthetic hip Associated attestation - Ludy Ireland OTR/L - 02/01/2024 2:58 PM EDT I have reviewed and agree with this note and education documentation for this visit. [employer] [id number] Progress note* PT/OT/THERMAL SURFACING MACHINE OPERATOR - Nick Fernandez PTA - 02/01/2024 11:57 AM EDT Physical Therapy (P) Treatment Discharge Recommendations PT Recommendations: (P) Inpatient Rehab Inpatient Rehab Criteria: (P) All inpatient rehab criteria expected to be met 6 Clicks: Basic Mobility Turning from your back to your side while in a flat bed without using bed rails?: A lot Moving from lying on your back to sitting on side of flat bed without using bed rails?: A lot Moving to and from bed to a chair (including w/c)?: A lot Standing up from a chair using your arms (e.g. w/c or bedside chair)?: A lot To walk in hospital room?: A lot Climbing 3-5 steps with a railing?: Total Scoring 6 Clicks: Basic Mobility Raw Score: 11 CMS G Code Modifier: CL Patient Response to Treatment: (P) Slow progress, decreased activity tolerance Assessment Patient Assessment Patient Response to Treatment: (P) Slow progress, decreased activity tolerance Visit RN Communication: (P) Yes Medical Record Reviewed: (P) Yes PT Type of Visit: (P) Treatment Precautions Activity: (P) Up to chair TID and ambulate BID Equipment: (P) gait belt, RW Weight Bearing Status: (P) WBAT Rt LE Telemetry/Paper Machine Back Tender: (P) Yes Oxygen Used: (P) room air Other: (P) fall risk Pain Assessment Pain Assessment: (P) 0-10 Pain Score: (P) 8 Pain Type: (P) Acute pain, Surgical pain Pain Location: (P) Hip, Leg Pain Orientation: (P) Right Pain Radiating Towards: (P) to knee Pain Intervention(s): (P) Cold applied, Repositioned, Ambulation/increased activity Bed Mobility Supine to Sit: (P) Mod assist (x2) Sit to Supine: (P) Unable to assess (pt left sititng up in bedside chair with light and tray near.) Other: (P) HOB elevated approx. 35 , assist for trunk and RLE movement, increased pain with movement. Transfers Sit to Stand: (P) Min assist (x2) Stand to Sit: (P) Min assist (x2) Bed to Chair: (P) Min assist (x2, assist for RLE advancement) Other: (P) cues for proper hand and RLE placement. Gait Base of Support: (P) Within Functional Limits Pattern: (P) Decreased jesusita, Antalgic gait, R Decreased heel strike, L Decreased heel strike, R Decreased foot clearance, L Decreased foot clearance, Forward trunk, R Decreased stance time, R Flexed knee Gait Assistance: (P) Min assist (x2) Assistive Device: (P) Rolling walker Gait Distance: (P) 4', chair brought to pt d/t immense pain Limiting Factors to Gait: (P) Pain Other: (P) assist for RLE advancement Balance Sitting Balance: Static: (P) Fair (+) Sitting Balance: Dynamic: (P) Fair Standing Balance: Static: (P) Fair (-) Standing Balance: Dynamic: (P) Poor Other: (P) pt sat unsupported for approx. 10 minutes prior to intiial stand. Activity Tolerance Endurance: (P) Tolerates >30 minutes activity with rest breaks Other: (P) rest breaks as needed Plan Physical Therapy Care Plan Physical Therapy Care Plan (Active) Template: PT - Physical Therapy Problem: Activity Tolerance Dates: Start: 01/31/24 Disciplines: PT Goal: Tolerate > 30 minutes of activity WITH rest breaks Dates: Start: 01/31/24 Expected End: 02/14/24 Description: Goal Description: Disciplines: PT Outcomes Date/Time User Outcome 02/01/24 1140 Nick Fernandez PTA Progressing 01/31/24 1545 Nick Fernandez PTA Progressing Goal Note filed on 02/01/24 1140 by Nick Fernandez PTA Evaluation of progress towards goal: Problem: Bed Mobility Dates: Start: 01/31/24 Disciplines: PT Goal: Patient will perform bed mobility with Minimum Assist Dates: Start: 01/31/24 Expected End: 02/14/24 Description: Goal Description: Disciplines: PT Outcomes Date/Time User Outcome 02/01/24 1140 Nick Fernandez PTA Progressing Goal Note filed on 02/01/24 1140 by Nick Fernandez PTA Evaluation of progress towards goal Problem: Gait Dates: Start: 01/31/24 Disciplines: PT Goal: Patient will perform gait with Contact Guard Dates: Start: 01/31/24 Expected End: 02/14/24 Description: With__rw__,__150__feet Goal Description: Disciplines: PT Outcomes Date/Time User Outcome 02/01/24 1140 Nick Fernandez PTA Not Progressing 01/31/24 1545 Nick Fernandez PTA Progressing Goal Note filed on 02/01/24 1140 by Nick Fernandez PTA Evaluation of progress towards goal: Problem: Stairs/Curb Dates: Start: 01/31/24 Disciplines: PT Goal: Patient will perform stairs/curb with Minimum Assist Dates: Start: 01/31/24 Expected End: 02/14/24 Description: ___1__steps,_rw no____hand rails Goal Description: Disciplines: PT Problem: Standing Balance Dates: Start: 01/31/24 Disciplines: PT Goal: Improve balance to good Dates: Start: 01/31/24 Expected End: 02/14/24 Description: Static Dynamic- with support of rw Disciplines: PT Outcomes Date/Time User Outcome 02/01/24 1140 Nick Fernandez PTA Not Progressing 01/31/24 1545 Nick Fernandez PTA Progressing Goal Note filed on 02/01/24 1140 by Nick Fernandez PTA Evaluation of progress towards goal: Problem: Strength Dates: Start: 01/31/24 Disciplines: PT Goal: Improve strength Dates: Start: 01/31/24 Expected End: 02/14/24 Description: Of extremity/ location:Complete 20 reps bilat LE ex's To facilitate: Disciplines: PT Outcomes Date/Time User Outcome 02/01/24 1140 Nick Fernandez PTA Not Progressing 01/31/24 1545 Nick Fernandez PTA Progressing Goal Note filed on 02/01/24 1140 by Nick Fernandez PTA Evaluation of progress towards goal: Problem: Transfers Dates: Start: 01/31/24 Disciplines: PT Goal: Patient will perform transfers with Contact Guard Dates: Start: 01/31/24 Expected End: 02/14/24 Description: Goal Description: Disciplines: PT Outcomes Date/Time User Outcome 02/01/24 1140 Nick Fernandez PTA Not Progressing 01/31/24 1545 Nick Fernandez PTA Progressing Goal Note filed on 02/01/24 1140 by Nick Fernandez PTA Evaluation of progress towards goal: Physical Therapy Care Plan (Resolved) There are no resolved problems. Principal Problem: Closed fracture of right hip, initial encounter ([facility]) Active Problems: Myah-prosthetic fracture around prosthetic hip Associated attestation - Lindsay Infante, PT - 02/01/2024 3:54 PM EDT I have reviewed and agree with this note and education documentation for this visit. [employer] [id number] Progress note* Discharge Planning Note - JEWEL Crenshaw - 02/01/2024 11:36 AM EDT DISCHARGE PLANNING NOTE DC plan IPR: [facility] can accept pt back. No auth needed. W/C tx cert in dc packet. Barriers: pain control on IV pain meds, Rt leg swollen - JEWEL Crenshaw 02/01/24 11:37 AM [employer] [id number] Progress note* Significant Event - HUBERT Paul - 02/01/2024 10:44 AM EDT I was asked by the medicine service to evaluate the patient. Patient has increased swelling on his right thigh, and they were concerns of possible compartment syndrome. Patient is sitting in chair at bedside with the hip flexed at 90 . 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 He also states that he was up with physical therapy today. On exam patient was able to flex extend the digits of his right foot. He was able to plantar flex and dorsiflex. His calf is soft. Patient resists range of motion of his knee secondary to pain. His right thigh as significantly swollen as compared to his left. His compartments are soft. He has bruising on the posterior lateral aspect of his distal thigh. His dressing is clean dry and intact. Assessment: Patient is postop day 2 status post IM nail for intertrochanteric/subtrochanteric hip fracture. No signs of compartment syndrome at this time. Plan: Discussed with Dr. Figueroa. No orthopedic intervention planned at this time. HUBERT Patel PA-C 02/01/24 3914 [employer] [facility] Work Phone: [phone]) 143-254006-20-2024 Plan of care note* Plan of Care - Antionette Smith RN - 02/01/2024 10:19 AM EDT Problem: Pain Goal: Patient goal is pain score less than 4, able to rest, and participant in treatment plan as appropriate Description: INTERVENTIONS: 1. Encourage patient or legal charter representative to report early pain and ask for pain medicine when needed 2. Assess pain using appropriate pain scale and include the scale used when documenting 3. Administer analgesics based on type and severity of pain and evaluate response within appropriate time frame 4. Implement non-pharmacological measures as appropriate and evaluate response 5. Consider cultural and social influences on pain and pain management 6. Notify LIP if interventions ineffective or patient reports new pain 7. Monitor vital signs including pulse ox, end-tidal CO2 based on pain intervention 8. Reassess pain per policy 9. Teach patient or legal charter representative interventions for comforting Outcome: Progressing Note: Evaluation of progress towards goal: improved pain control with PRN medications Problem: Safety Goal: Patient will be injury free during hospitalization Description: INTERVENTIONS: 1. Assess patient's risk for falls and implement fall prevention plan of care per policy 2. Provide and maintain a safe environment 3. Proper use of double Identifiers 4. Medication administration using the 5 rights 5. Hand hygiene 6. Specimens are labeled at the bedside 7. Instruct patient/ patient charter representative about use of safety devices 8. Include patient/ patient charter representative in decisions related to safety Outcome: Progressing Note: Evaluation of progress towards goal: free from falls Problem: Glucose Imbalance Goal: Clinical indication of glucose balance is achieved Description: Patient's goal is: INTERVENTIONS 1. Monitor blood glucose levels as ordered 2. Administer medications as ordered 3. Notify physician of ineffective treatment plan Outcome: Progressing Note: Evaluation of progress towards goal: blood glucose stable [employer] [id number] Hospital Discharge instructions* Discharge Instructions* Leatha Mcguire MD - 02/01/2024 7:26 AM EDT 1. Please arrange follow-up with primary care 1 week of discharge for post hospital visit and follow-up regarding iron-deficiency anemia for discussion regarding full workup and outpatient referral to GI for discussion regarding colonoscopy and upper GI endoscopy if not recently done 2. Please have facility physician arrange for internal medicine consultation while in inpatient rehab 3. Please have facility physician arrange for monitoring of CBC and BMP regularly to monitor hemoglobin and electrolytes while in the rehab facility. Please call results to facility physician Please have facility physician monitor CBC and BMP at least twice weekly while on Lovenox Currently been discharged on Lovenox for DVT prophylaxis for 28 more days 4. Please have facility physician arrange for monitoring of blood pressure twice daily and as needed and call for dose adjustment of blood pressure medications if systolic blood pressure greater [id number] or less than 110 or heart rate less than 60 per minute or diastolic blood pressure greater than95 mmHg Currently hydrochlorothiazide has been stopped secondary to low sodium levels please have the facility physician and internal medicine physician monitor blood pressure and adjust blood pressure medications accordingly 5. Please have facility physician place on fall precautions and aspiration precautions 6. Please have facility physician arrange for physical therapy and occupational therapy evaluation 7. Please have facility physician arrange for monitoring of blood glucose before meals and at nightand call facility physician for dose adjustments of insulin if blood glucose greater than 300 or less than 110 or not eating 8. Please follow-up with orthopedics Dr. Figueroa as scheduled on 02/12/2024 at 8:15 a.m. regarding recent surgery. Telephone number:[phone] 9. No driving and no operating heavy machinery 9. Please follow-up with your GI doctor regarding iron-deficiency anemia for outpatient full evaluation 10. Facility physician to please monitor patient medications and adjust 11. Facility physician to place patient on fall precautions and aspiration precautions ORTHOPAEDIC DISCHARGE INSTRUCTIONS Diagnosis: Right hip fracture Procedure: Revision IMN right hip fracture Follow-Up Appointment: Dr. Figueroa on Future Appointments Date Time Provider Department Center 02/12/2024 8:15 AM Ang Figueroa MD [facility] Office Location: [facility] [address] [place] [address] Call 911 immediately if you experience: Chest pain, difficulty breathing, or shortness of breath. Call the office for concerns related to: calf pain, leg swelling, fever/chills, redness or drainagearound the incision sites, prolong numbness/tingling, or increased pain-that is not relieved with medications, ice and elevation. Weight-bearing instructions: Right lower extremity:Weight bearing as tolerated on limb Incision care: Keep clean and dry. Replace with clean and dry dressing if applicable. Do not soak submerge or get wounds wet. Do not apply creams or ointments to incision unless instructed to do so. Perform dressing changes after washing her hands and practicing good personal hygiene. Staple care: Do not remove. They will be removed at your postop appointment. Exercises and range of motion: Wiggle (flex and extend) fingers/toes of affected extremity frequently with gentle range of motion. Placed ice bag on affected extremity: 20 minutes on every 2-4 hours. Elevate the affected extremity above the heart to reduce swelling. Medications: Refer to discharge medication reconciliation form for complete discharge medication list. Vitamins/supplements It is recommended to take Calcium and Vitamin D for bone health. Please refer to the medication reconciliation form for exact doses Pain medications Pain medicine has been prescribed for management of your pain symptoms. Please refer to the medication reconciliation form for exact doses. Prevention of blood clots Many orthopedic conditions can predispose you to blood clots. Medications for prophylaxis against blood clots are appropriate they have been prescribed to you and are present on her medication reconciliation form. Please refer to that form for exact doses. * Attachments The following attachments cannot be sent through Care Everywhere. * Femur Fracture Discharge Instructions ([place] of care note * Plan of Care - Santi Parks RN - 01/31/2024 7:30 PM EDT Problem: Pain Goal: Patient goal is pain score less than 4, able to rest, and participant in treatment plan as appropriate Description: INTERVENTIONS: 1. Encourage patient or legal charter representative to report early pain and ask for pain medicine when needed 2. Assess pain using appropriate pain scale and include the scale used when documenting 3. Administer analgesics based on type and severity of pain and evaluate response within appropriate time frame 4. Implement non-pharmacological measures as appropriate and evaluate response 5. Consider cultural and social influences on pain and pain management 6. Notify LIP if interventions ineffective or patient reports new pain 7. Monitor vital signs including pulse ox, end-tidal CO2 based on pain intervention 8. Reassess pain per policy 9. Teach patient or legal charter representative interventions for comforting Outcome: Progressing Note: Evaluation of progress towards goal: pain assessed and analgesics administered as needed, nonpharmacological measures implemented as needed. Problem: Safety Goal: Patient will be injury free during hospitalization Description: INTERVENTIONS: 1. Assess patient's risk for falls and implement fall prevention plan of care per policy 2. Provide and maintain a safe environment 3. Proper use of double Identifiers 4. Medication administration using the 5 rights 5. Hand hygiene 6. Specimens are labeled at the bedside 7. Instruct patient/ patient charter representative about use of safety devices 8. Include patient/ patient charter representative in decisions related to safety Outcome: Progressing Note: Evaluation of progress towards goal: Safety measures initiated/maintained. Pt remains safe from harm/injury/falls Problem: Infection Goal: Absence of infection during hospitalization Description: Interventions: 1. Assess and monitor for signs and symptoms of infection 2. Monitor lab/diagnostic results 3. Monitor all insertion sites i.e., indwelling lines, tubes and drains 4. Monitor endotracheal (as able) and nasal secretions for changes in amount and color 5. Administer medications as ordered 6. Instruct and encourage patient and family to use good hand hygiene technique 7. Identify and instruct patient/patient charter representative in use of appropriate isolation precautionsfor identified infection/symptoms 8. Provide and discuss with patient/patient charter representative on educational MDRO sheet 9. Encourage and monitor nutritional status daily and consult maxillofacial pathology if indicated 10. Implement neutropenic guidelines as needed 11. Review exposure to history of communicable disease and recent travel history on admission 12. Encourage annual influenza vaccine 13. Encourage pneumonia vaccine Outcome: Progressing Note: Evaluation of progress towards goal: Pt afebrile at this time, continue to monitor for signs infection Problem: Knowledge Deficit Goal: Patient/patient charter representative demonstrates understanding of disease process, treatment plan,medications, and discharge instructions Description: INTERVENTIONS 1. Complete learning assessment and assess knowledge base 2. Provide teaching at level of understanding 3. Provide teaching via preferred learning method(s) Outcome: Progressing Note: Evaluation of progress towards goal: POC discussed with patient. Questions answered PRN. [facility] [id number] Progress note* PT/OT/THERMAL SURFACING MACHINE OPERATOR - NALLELY Nielsen - 01/31/2024 4:10 PM EDT Occupational Therapy Treatment Discharge Recommendations OT Recommendations : Inpatient Rehab Inpatient Rehab Criteria: All inpatient rehab criteria expected to be met (pt. would benefit from further IPR to improve strength, endurance and balance for ADL/mobility tasks and return to PLOF.) 6 Clicks: Daily Activity Putting on and taking off regular lower body clothing?: A lot Bathing (including washing, rinsing, drying)?: A lot Toileting, which includes using toilet, bedpan or urinal?: A lot Putting on and taking off regular upper body clothing?: A little Taking care of personal grooming such as brushing teeth?: A little Eating meals?: None Scoring Daily Activity Raw Score: 16 CMS G Code Modifier: CK 01/31/24 1406 UE ROM UE ROM exercises performed? Yes Shoulder shrugs x Shoulder flexion/extension x (limited ROM) Shoulder horizontal abduction/adduction x (limited ROM) Elbow flexion/extension x Forearm supination/pronation x Other BUE AROM as nabil. Repetitions 10-15 OT Treatment/Interventions: ADL retraining, Functional transfer training, LE strengthening/ROM, UE strengthening/ROM, Endurance training, Patient/family training, Equipment eval/education, Balance, Bed mobility, Compensatory technique education, Functional activities OT Frequency: Twice a Day Assessment Patient Assessment Patient Response to Treatment: Progressing toward goals Visit RN Communication: Yes Medical Record Reviewed: Yes OT Type of Visit: Treatment Precautions Activity: Up to chair TID and ambulate BID Equipment: gait belt, RW Weight Bearing Status: WBAT Rt LE Telemetry/Paper Machine Back Tender: Yes Oxygen Used: room air Other: fall risk Pain Assessment Pain Assessment: 0-10 Pain Score: 9 Pain Type: Acute pain, Surgical pain Pain Location: Hip, Knee Pain Orientation: Right Pain Descriptors: Sharp, Shooting, Discomfort Pain Frequency: Constant/continuous Pain Intervention(s): Repositioned, Ambulation/increased activity, Cold applied Response to Interventions: Quiet Hearing / Speech / Vision Hearing: Within Functional Limits Speech: Within Functional Limits Current Vision: Wears glasses only for reading Cognition Orientation Level: Oriented X4 Bed Mobility Other: did not test - pt. sitting in chair upon arrival and left in chair at end of tx. session. Call light in reach, tray table near and RN aware. Transfers Sit to Stand: Min assist (of 2) Stand to Sit: Min assist (of 2) Other: pt. required cues for technique and proper hand placement prior to sit/stand - fair carryover noted. Slow and guarded d/t pain level - no c/o dizziness noted. Pt. demo good eccentric control when completing stand -> sit. Gait Gait Assistance: Min assist (of 2) Assistive Device: Rolling walker Gait Distance: Short distance of 4 feet. Other: Pt. slow and slightly unsteady - close chair follow for safety. Required cues for sequencingand safety with manuevering RW. Difficulty noted advancing BLE foward d/t increased pain level. Balance Sitting Balance: Static: Fair (+) Sitting Balance: Dynamic: Fair Standing Balance: Static: Fair (-) Standing Balance: Dynamic: Poor Other: with UE support on RW in standing - mild unsteadiness, no LOB noted. Sat unsupported for ther ex approx. 20 minutes working on sitting balance/endurance and core strength. Activity Tolerance Endurance: Tolerates >30 minutes activity with rest breaks Other: rest breaks as needed Plan Occupational Therapy Care Plan Occupational Therapy Care Plan (Active) Template: OT - Occupational Therapy Problem: Activity Tolerance Dates: Start: 01/31/24 Disciplines: OT Goal: Tolerate > 30 minutes of activity WITHOUT rest breaks Dates: Start: 01/31/24 Expected End: 02/28/24 Description: Goal Description: Disciplines: OT Outcomes Date/Time User Outcome 01/31/241608 NALLELY Nielsen Progressing Goal Note filed on 01/31/24 160 by NALLELY Nielsen Evaluation of progress towards goal: Problem: Bed Mobility Dates: Start: 01/31/24 Disciplines: OT Goal: Patient will perform bed mobility with Modified [place] Dates: Start: 01/31/24 Expected End: 02/28/24 Description: Goal Description: Disciplines: OT Problem: Functional Mobility Dates: Start: 01/31/24 Disciplines: OT Goal: Patient will perform functional mobility with Modified [place] Dates: Start: 01/31/24 Expected End: 02/28/24 Description: Goal Description: Disciplines: OT Outcomes Date/Time User Outcome 01/31/24 160 NALLELY Nielsen Progressing Goal Note filed on 01/31/24 160 by NALLELY Nielsen Evaluation of progress towards goal: Problem: Other (Customize) Dates: Start: 01/31/24 Disciplines: OT Goal: Improve Dates: Start: 01/31/24 Expected End: 02/28/24 Description: Goal Description: Complete ADLs [place] with AE/DME Disciplines: OT Problem: Sitting Balance Dates: Start: 01/31/24 Disciplines: OT Goal: Improve balance to good Dates: Start: 01/31/24 Expected End: 02/28/24 Description: Static Dynamic Disciplines: OT Outcomes Date/Time User Outcome 01/31/24 1609 NALLELY Nielsen Progressing Goal Note filed on 01/31/24 160 by NALLELY Nielsen Evaluation of progress towards goal: Problem: Standing Balance Dates: Start: 01/31/24 Disciplines: OT Goal: Improve balance to good Dates: Start: 01/31/24 Expected End: 02/28/24 Description: Static Dynamic Disciplines: OT Outcomes Date/Time User Outcome 01/31/24 1609 NALLELY Nielsen Progressing Goal Note filed on 01/31/24 160 by NALLELY Nielsen Evaluation of progress towards goal: Problem: Strength Dates: Start: 01/31/24 Disciplines: OT Goal: Improve strength Dates: Start: 01/31/24 Expected End: 02/28/24 Description: Of extremity/ location: Tolerate bilat UE exercises to increase strength and endurancefor self care tasks To facilitate: Disciplines: OT Outcomes Date/Time User Outcome 01/31/24 1609 NALLELY Nielsen Not Progressing Goal Note filed on 01/31/24 1609 by NALLELY Nielsen Evaluation of progress towards goal: Problem: Transfers Dates: Start: 01/31/24 Disciplines: OT Goal: Patient will perform transfers with Modified [place] Dates: Start: 01/31/24 Expected End: 02/28/24 Description: Goal Description: Disciplines: OT Outcomes Date/Time User Outcome 01/31/24 1609 NALLELY Nielsen Progressing Goal Note filed on 01/31/24 1609 by NALLELY Nielsen Evaluation of progress towards goal: Occupational Therapy Care Plan (Resolved) There are no resolved problems. Principal Problem: Closed fracture of right hip, initial encounter ([facility]) Active Problems: Myah-prosthetic fracture around prosthetic hip Associated attestation - Ludy Ireland OTR/L - 02/01/2024 7:28 AM EDT I have reviewed and agree with this note and education documentation for this visit. [employer] [id number] Progress note* PT/OT/THERMAL SURFACING MACHINE OPERATOR - Nick Fernandez PTA - 01/31/2024 3:56 PM EDT Physical Therapy Treatment Discharge Recommendations PT Recommendations: Inpatient Rehab Inpatient Rehab Criteria: All inpatient rehab criteria expected to be met 6 Clicks: Basic Mobility Turning from your back to your side while in a flat bed without using bed rails?: A lot Moving from lying on your back to sitting on side of flat bed without using bed rails?: A lot Moving to and from bed to a chair (including w/c)?: A little Standing up from a chair using your arms (e.g. w/c or bedside chair)?: A little To walk in hospital room?: A lot Climbing 3-5 steps with a railing?: Total Scoring 6 Clicks: Basic Mobility Raw Score: 13 CMS G Code Modifier: CK Patient Response to Treatment: Slow progress, decreased activity tolerance Assessment Patient Assessment Patient Response to Treatment: Slow progress, decreased activity tolerance Visit RN Communication: Yes Medical Record Reviewed: Yes PT Type of Visit: Treatment Precautions Activity: Up to chair TID and ambulate BID Equipment: gait belt, RW Weight Bearing Status: WBAT Rt LE Telemetry/Paper Machine Back Tender: Yes Oxygen Used: room air Other: fall risk 01/31/24 1405 LE Seated LE seated exercises performed? Yes Ankle pumps x Long arc quads x Hip abduction/adduction x Other verbal and visual cues for proper technique Repetitions 7-10x BLE within tolerance/available ROM Pain Assessment Pain Assessment: 0-10 Pain Score: 9 Pain Type: Acute pain, Surgical pain Pain Location: Hip, Knee Pain Orientation: Right Pain Intervention(s): Repositioned, Ambulation/increased activity, Cold applied Response to Interventions: Pain unchanged, Quiet, No grimacing Bed Mobility Other: NT, pt found and left sitting up in bedside chair with light and tray near. Transfers Sit to Stand: (x2) Stand to Sit: Min assist (x2) Other: verbal cues for proper hand placement and RLE placement. Gait Base of Support: Within Functional Limits Pattern: Decreased jesusita, Antalgic gait, R Decreased heel strike, L Decreased heel strike, R Decreased foot clearance, L Decreased foot clearance, Forward trunk, R Decreased stance time, R Flexed knee Gait Assistance: Min assist (x2) Assistive Device: Rolling walker Gait Distance: 4' Limiting Factors to Gait: Fatigue, Weakness, Pain Other: cues for posture and safety. Balance Sitting Balance: Static: Fair Sitting Balance: Dynamic: Fair Standing Balance: Static: Fair (-) Standing Balance: Dynamic: Poor (+) Other: BUE support using RW. Activity Tolerance Endurance: Tolerates >30 minutes activity with rest breaks Other: rest breaks as needed Plan Physical Therapy Care Plan Physical Therapy Care Plan (Active) Template: PT - Physical Therapy Problem: Activity Tolerance Dates: Start: 01/31/24 Disciplines: PT Goal: Tolerate > 30 minutes of activity WITH rest breaks Dates: Start: 01/31/24 Expected End: 02/14/24 Description: Goal Description: Disciplines: PT Outcomes Date/Time User Outcome 01/31/24 1545 Nick Fernandez PTA Progressing Goal Note filed on 01/31/24 1545 by Nick Fernandez PTA Evaluation of progress towards goal: Problem: Bed Mobility Dates: Start: 01/31/24 Disciplines: PT Goal: Patient will perform bed mobility with Minimum Assist Dates: Start: 01/31/24 Expected End: 02/14/24 Description: Goal Description: Disciplines: PT Problem: Gait Dates: Start: 01/31/24 Disciplines: PT Goal: Patient will perform gait with Contact Guard Dates: Start: 01/31/24 Expected End: 02/14/24 Description: With__rw__,__150__feet Goal Description: Disciplines: PT Outcomes Date/Time User Outcome 01/31/24 1545 Nick Fernandez PTA Progressing Goal Note filed on 01/31/24 1545 by Nick Fernandez PTA Evaluation of progress towards goal: Problem: Stairs/Curb Dates: Start: 01/31/24 Disciplines: PT Goal: Patient will perform stairs/curb with Minimum Assist Dates: Start: 01/31/24 Expected End: 02/14/24 Description: ___1__steps,_rw no____hand rails Goal Description: Disciplines: PT Problem: Standing Balance Dates: Start: 01/31/24 Disciplines: PT Goal: Improve balance to good Dates: Start: 01/31/24 Expected End: 02/14/24 Description: Static Dynamic- with support of rw Disciplines: PT Outcomes Date/Time User Outcome 01/31/24 1545 Nick Fernandez PTA Progressing Goal Note filed on 01/31/24 154 by Nick Fernandez PTA Evaluation of progress towards goal: Problem: Strength Dates: Start: 01/31/24 Disciplines: PT Goal: Improve strength Dates: Start: 01/31/24 Expected End: 02/14/24 Description: Of extremity/ location:Complete 20 reps bilat LE ex's To facilitate: Disciplines: PT Outcomes Date/Time User Outcome 01/31/24 1545 Nick Fernandez PTA Progressing Goal Note filed on 01/31/24 154 by Nick Fernandez PTA Evaluation of progress towards goal: Problem: Transfers Dates: Start: 01/31/24 Disciplines: PT Goal: Patient will perform transfers with Contact Guard Dates: Start: 01/31/24 Expected End: 02/14/24 Description: Goal Description: Disciplines: PT Outcomes Date/Time User Outcome 01/31/24 1545 Nick Fernandez PTA Progressing Goal Note filed on 01/31/24 154 by Nick Fernandez PTA Evaluation of progress towards goal: Physical Therapy Care Plan (Resolved) There are no resolved problems. Principal Problem: Closed fracture of right hip, initial encounter ([facility]) Active Problems: Myah-prosthetic fracture around prosthetic hip Associated attestation - Lindsay Infante, PT - 01/31/2024 4:14 PM EDT I have reviewed and agree with this note and education documentation for this visit. [facility] [place]06-19-2024 Progress note* Discharge Planning Note - Alexandra Eric - 01/31/2024 3:48 PM EDT DISCHARGE PLANNING NOTE Referral sent to [facility], a division of [facility] P# [phone] [calling report];/[facility] (P# [calling report]; F# ) [facility] [place]06-19-2024 Progress note* Discharge Planning Note - JEWEL Crenshaw - 01/31/2024 3:13 PM EDT Images from the original note were not included. DISCHARGE PLANNING NOTE SW met with patient introduce self & role. [facility]. Pt underwent IM nail on 01/18/24 and pt discharged to IP rehab on 01/22/24. Pt was transferred back to [facility] on 01/28 after fall at rehab facility. Pt was found to have periprosthetic hip fracture. Pt underwent another IM nail & hardware removal on 01/30/24. Patient was living alone in one story home with 1 step prior to initial admit with fall. Pt reportshe was up with walker at rehab facility and was doing well prior to the fall. Pt denied concern getting medications. No alcohol, tobacco or illicit drug use. DC plan will be IP rehab. PT/OT and PM&R all rec IP rehab. GABRIEL discussed with pt and pt would like to return to [facility] rehab. Referral was sent, await confirmation they can accept pt back. Services Requested: Services Requested Acute Rehab Name: [facility] . Patient choice offered: Other (comment) (pt current with provider) List Provided: Other (comment) Initial DC Assessment Completed: Yes Patient Goals: Goals: Goals (pt-stated) Evaluation of progress towards goal: pt plans to return to [facility] rehab at mt to improve mobility and get home (pt-stated) Evaluation of progress towards goal: Participating in therapy - JEWEL Crenshaw 01/31/24 3:18 PM [facility] [place]06-19-2024 Progress note* PT/OT/THERMAL SURFACING MACHINE OPERATOR - Lindsay Infante, PT - 01/31/2024 1:02 PM EDT Physical Therapy Evaluation Discharge Recommendations PT Recommendations: Inpatient Rehab Inpatient Rehab Criteria: All inpatient rehab criteria expected to be met Therapy Plan Need for skilled Physical Therapy to address deficits in functional mobility due to a status decline resulting from re-hospitalization. On 01/17 pt underwent an IM nailing or a Rt IT fractures s/p fall. Pt was discharged to inpatient rehab on 01/21. Pt sustained a fall at rehab on 01/26 and was found to have a periprosthetic subtrochanteric fracture. Pt was seen in ortho office on 01/28 and was sent to the ED. On 01/29 pt underwent removal hardware Rt femur/ IM nailing Rt IT subtrochanteric hip fx. Pt is WBAT Rt LE. Pt needs increased time to complete tasks and is very vocal about his pain while completing functional mobility. Chief Complaint Patient presents with Fall Evaluation of Abnormal Diagnostic Test Past Medical History: Diagnosis Date Asthma Back pain Chronic cough from lisinopril Chronic pain disorder Colon cancer ([facility]) COPD (chronic obstructive pulmonary disease) ([facility]) Depression Diabetes mellitus type 2, controlled ([facility]) Fibromyalgia, primary Fracture of right hip, closed, initial encounter ([facility]) 01/17/2024 GERD (gastroesophageal reflux disease) Hyperlipidemia Hypertension Insulin-treated type 2 diabetes mellitus ([facility]) Joint pain Kidney stones Liver disease Low back pain Neck pain Obesity Osteoarthritis Visual impairment Past Surgical History: Procedure Laterality Date BACK SURGERY COLON SURGERY resection, 2018, [facility] DAVINCI REPAIR HERNIA VENTRAL N/A 10/27/2021 Performed by Ridge Cedillo MD at [facility] DENTAL SURGERY pt had all teeth removed HERNIA REPAIR x's 2 INSERTION INTRAMEDULLARY NAIL FEMUR Right 01/30/2024 Performed by Ang Figueroa MD at [facility] INSERTION INTRAMEDULLARY NAIL FEMUR-TFNA HIP FX Right 01/18/2024 Performed by Ang Figueroa MD at [facility] ORTHOPEDIC SURGERY 2008 foot, infected foot REMOVAL HARDWARE INTRAMEDULLARY NAIL/KATERYNA FEMUR Right 01/30/2024 Performed by Ang Figueroa MD at [facility] 6 Clicks: Basic Mobility Turning from your back to your side while in a flat bed without using bed rails?: A lot Moving from lying on your back to sitting on side of flat bed without using bed rails?: A lot Moving to and from bed to a chair (including w/c)?: A little Standing up from a chair using your arms (e.g. w/c or bedside chair)?: A little To walk in hospital room?: A lot Climbing 3-5 steps with a railing?: Total Scoring 6 Clicks: Basic Mobility Raw Score: 13 CMS G Code Modifier: CK Recommended Consults: PM&R consult PT Treatment/Interventions: Functional transfer training, LE strengthening/ROM, Endurance training,Patient/family training, Equipment eval/education, Balance, Stair training, Bed mobility, Gait training, Functional activities PT Frequency: Twice a Day PT Duration: LOS Patient Response to Treatment: Tolerated evaluation without adverse reaction Assessment Patient Assessment Therapy Problem List: Decreased balance, Decreased endurance, Decreased mobility, Decreased safe judgement during ADL, Decreased LE ROM, Decreased LE strength Patient Response to Treatment: Tolerated evaluation without adverse reaction Mood/Affect: Appropriate for circumstances Rehab Prognosis: With continued PT status post acute discharge, Good Visit RN Communication: Yes Medical Record Reviewed: Yes PT Type of Visit: Evaluation Precautions Activity: Up to chair TID and ambulate BID Equipment: gait belt, RW Weight Bearing Status: WBAT Rt LE Telemetry/Paper Machine Back Tender: Yes Other: fall risk Pain Assessment Pain Assessment: 0-10 Pain Score: 8 Pain Type: Acute pain, Surgical pain Pain Location: Hip, Knee Pain Orientation: Right Pain Radiating Towards: knee Pain Intervention(s): Cold applied, Repositioned, Ambulation/increased activity Home Living Type of Home: Apartment (1st floor) Home Layout: One level Stairs to Enter: 1 Hand Rails: None Stairs in Home: 0 Bathroom Shower/Tub: Tub/shower unit Bathroom Toilet: Standard Bathroom Equipment: Hand-held shower, Non skid shower floor, Shower chair Home Equipment: Rolling walker, 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 He had been at [facility] just prior to this adm and amb short distances on his own with rw per his report. Hearing / Speech / Vision Hearing: Within Functional Limits Speech: Within Functional Limits Current Vision: Wears glasses only for reading Cognition Orientation Level: Oriented X4 Sensation Overall Sensation Status: Consistent with premorbid status (Pt reports neuropathy in both feet and recently started in his hands as well. Per pt he was in process of getting EMG done.) Bed Mobility Supine to Sit: Max assist (x 2 with assist at the trunk and with LE's. Used rail and HOB up slightly.) Sit to Supine: (NT this session as pt up in chair with call light at end of session- RN aware) Other: Increased time and effort Transfers Sit to Stand: Min assist (x 2) Stand to Sit: Min assist (x 2, physical assist to advance LLE out as he sat down.) Bed to Chair: Min assist (x 2) Other: Cues for hand placement and safe technique. Pt currently having difficulty flexing Rt knee Gait Gait Assistance: Min assist (x 2. Assist for safety and safe walker use) Assistive Device: Rolling walker Gait Distance: 3' bed to chair -pt had difficulty accepting weight on RLE. Pt stated that his neck was hurting and neuropathy in his hands made it difficult to grasp rw. Limiting Factors to Gait: Fatigue, Pain Balance Sitting Balance: Static: Fair (Pt had difficulty initially flexing at his hips to sit and was very guarded with strong posterior lean. Pt needed both tactile and verbal cues to place his feet on the floor.) Sitting Balance: Dynamic: Poor Standing Balance: Static: Fair (-) Standing Balance: Dynamic: Poor Other: Standing balance with RW for support RLE Strength RLE Overall Strength: (Pt not able to move against gravity at the hip or knee, DF/PF at least 3/5.) LLE Strength LLE Overall Strength: Within Functional Limits - able to perform ADL tasks with strength Activity Tolerance Endurance: Tolerates >30 minutes activity with rest breaks Plan Physical Therapy Care Plan Physical Therapy Care Plan (Active) Template: PT - Physical Therapy Problem: Activity Tolerance Dates: Start: 01/31/24 Disciplines: PT Goal: Tolerate > 30 minutes of activity WITH rest breaks Dates: Start: 01/31/24 Expected End: 02/14/24 Description: Goal Description: Disciplines: PT Problem: Bed Mobility Dates: Start: 01/31/24 Disciplines: PT Goal: Patient will perform bed mobility with Minimum Assist Dates: Start: 01/31/24 Expected End: 02/14/24 Description: Goal Description: Disciplines: PT Problem: Gait Dates: Start: 01/31/24 Disciplines: PT Goal: Patient will perform gait with Contact Guard Dates: Start: 01/31/24 Expected End: 02/14/24 Description: With__rw__,__150__feet Goal Description: Disciplines: PT Problem: Stairs/Curb Dates: Start: 01/31/24 Disciplines: PT Goal: Patient will perform stairs/curb with Minimum Assist Dates: Start: 01/31/24 Expected End: 02/14/24 Description: ___1__steps,_rw no____hand rails Goal Description: Disciplines: PT Problem: Standing Balance Dates: Start: 01/31/24 Disciplines: PT Goal: Improve balance to good Dates: Start: 01/31/24 Expected End: 02/14/24 Description: Static Dynamic- with support of rw Disciplines: PT Problem: Strength Dates: Start: 01/31/24 Disciplines: PT Goal: Improve strength Dates: Start: 01/31/24 Expected End: 02/14/24 Description: Of extremity/ location:Complete 20 reps bilat LE ex's To facilitate: Disciplines: PT Problem: Transfers Dates: Start: 01/31/24 Disciplines: PT Goal: Patient will perform transfers with Contact Guard Dates: Start: 01/31/24 Expected End: 02/14/24 Description: Goal Description: Disciplines: PT Physical Therapy Care Plan (Resolved) There are no resolved problems. 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 - WILLARD Chavira/Lanie - 01/31/2024 11:28 AM EDT Occupational Therapy Evaluation Discharge Recommendations OT Recommendations : Inpatient Rehab Inpatient Rehab Criteria: All inpatient rehab criteria expected to be met 6 Clicks: Daily Activity Putting on and taking off regular lower body clothing?: A lot Bathing (including washing, rinsing, drying)?: A lot Toileting, which includes using toilet, bedpan or urinal?: A lot Putting on and taking off regular upper body clothing?: A little Taking care of personal grooming such as brushing teeth?: A little Eating meals?: A little Scoring Daily Activity Raw Score: 15 CMS G Code Modifier: CK Therapy Plan Need for skilled Occupational Therapy to address deficits in ADL independence and functional mobility due to a status decline resulting from hospitalization. 01/17 pt underwent an IM nailing or a Rt IT fractures s/p fall. Pt was discharged to inpatient rehab on 01/21. Pt sustained a fall at rehab on 01/26 and was found to have a periprosthetic subtrochantericfracture. Pt was seen in ortho office on 01/28 and was sent to the ED. 01/29 pt underwent removal hardware Rt femur/ IM nailing Rt IT subtrochanteric hip fx. Pt is WBAT Rt LE Scoring Daily Activity Raw Score: 15 CMS G Code Modifier: CK Past Medical History: Diagnosis Date Asthma Back pain Chronic cough from lisinopril Chronic pain disorder Colon cancer ([facility]) COPD (chronic obstructive pulmonary disease) ([facility]) Depression Diabetes mellitus type 2, controlled ([facility]) Fibromyalgia, primary Fracture of right hip, closed, initial encounter ([facility]) 01/17/2024 GERD (gastroesophageal reflux disease) Hyperlipidemia Hypertension Insulin-treated type 2 diabetes mellitus ([facility]) Joint pain Kidney stones Liver disease Low back pain Neck pain Obesity Osteoarthritis Visual impairment Past Surgical History: Procedure Laterality Date BACK SURGERY COLON SURGERY resection, 2018, [facility] DAVINCI REPAIR HERNIA VENTRAL N/A 10/27/2021 Performed by Ridge Cedillo MD at [facility] DENTAL SURGERY pt had all teeth removed HERNIA REPAIR x's 2 INSERTION INTRAMEDULLARY NAIL FEMUR Right 01/30/2024 Performed by Ang Figueroa MD at [facility] INSERTION INTRAMEDULLARY NAIL FEMUR-TFNA HIP FX Right 01/18/2024 Performed by Ang Figueroa MD at [facility] ORTHOPEDIC SURGERY 2008 foot, infected foot REMOVAL HARDWARE INTRAMEDULLARY NAIL/KATERYNA FEMUR Right 01/30/2024 Performed by Ang Figueroa MD at [facility] Chief Complaint Patient presents with Fall Evaluation of Abnormal Diagnostic Test OT Treatment/Interventions: ADL retraining, Functional transfer training, LE strengthening/ROM, UE strengthening/ROM, Endurance training, Patient/family training, Equipment eval/education, Balance, Bed mobility, Compensatory technique education, Functional activities OT Frequency: Twice a Day OT Duration: Until discharge Assessment Patient Assessment Therapy Problem List: Decreased ADL status, Decreased balance, Decreased endurance, Decreased high-level ADLs, Decreased mobility, Decreased safe judgement during ADL, Decreased self-care trans, Decreased LE strength, Decreased UE strength Patient Response to Treatment: Tolerated evaluation without adverse reaction Mood/Affect: Anxious Rehab Prognosis: Good, With continued OT status post acute discharge Visit RN Communication: Yes Medical Record Reviewed: Yes OT Type of Visit: Evaluation Precautions Activity: Up to chair TID and ambulate BID Equipment: gait belt, RW Weight Bearing Status: WBAT Rt LE Telemetry/Paper Machine Back Tender: Yes Oxygen Used: room air Other: fall risk Pain Assessment Pain Assessment: 0-10 Pain Score: 8 Pain Type: Acute pain, Surgical pain Pain Location: Hip, Knee Pain Orientation: Right Pain Radiating Towards: knee Pain Intervention(s): Cold applied, Repositioned, Ambulation/increased activity Response to Interventions: Pain unchanged, Quiet Home Living Type of Home: Apartment (1st floor) Home Layout: One level Stairs to Enter: 1 Hand Rails: None Stairs in Home: 0 Bathroom Shower/Tub: Tub/shower unit Bathroom Toilet: Standard Bathroom Equipment: Hand-held shower, Non skid shower floor, Shower chair Home Equipment: Rolling walker, Cane, Agriculture Professor Other : No AE/DME needs prior to initial injury Prior Function Lives With: Alone Receives Help From: Neighbor Level of Mobility: Independent with ADLs and functional transfers or gait Homemaking Assistance: Needs assistance Driving: Total assist Other: Pt independent at baseline except for driving. Pt has required assist for all since. ADL / IADL Hand Dominance: Right Where Assessed: Edge of bed, Chair Eating Assistance: Setup Grooming Assistance: Setup Bathing/Showering Assistance: Max assist Toilet/Commode Assistance: Max assist UE Dressing Assistance: Min assist LE Dressing Assistance: Max assist Footwear Assistance: Total assist Other: Pt limited by weakness, fatigue, decreased balance and pain. Pt pushing posteriorly while sitting EOB and does not tolerate much activity due to pain. Home Management - IADL Other: Pt limited by weakness, fatigue, decreased balance and pain. Pt pushing posteriorly while sitting EOB and does not tolerate much activity due to pain. Hearing / Speech / Vision Hearing: Within Functional Limits Speech: Within Functional Limits Current Vision: Wears glasses only for reading Cognition Orientation Level: Oriented X4 Sensation Overall Sensation Status: Consistent with premorbid status Other: Neuropathy bilat feet. Pt also has Cspine issues which results in intermittent numbness in UEs Bed Mobility Supine to Sit: Max assist (x 2) Sit to Supine: (Pt in chair with call light, RN aware) Other: Max cuing for hand placement and technique. Pt very painful. Limited flexion at hips and pushing posteriorly. Bilat UEs flailing. Cues for proper breathing techniques Transfers Sit to Stand: Min assist (x 2) Stand to Sit: Min assist (x 2) Bed to Chair: Min assist (x 2) Other: Cues for hand placement and technique and bed slightly elevated. Pt required an extended amount of time to determine where he prefered placing his hand. Pt anxious and slightly agitated. Gait Gait Assistance: Min assist (x 2. Assist for safety and safe walker use) Assistive Device: Rolling walker Gait Distance: 3' bed to chair Limiting Factors to Gait: Fatigue, Pain Balance Sitting Balance: Static: Fair (-. Pt initially poor, pushing posteriorly. Max cuing for LE and UE placement to assist with sitting. Pt required an extended amount of time sitting EOB in preparation to stand. Cuing for proper breathing techniques.) Sitting Balance: Dynamic: Poor Standing Balance: Static: Fair (-) Standing Balance: Dynamic: Poor Other: Standing balance with RW for support RUE Strength RUE Overall Strength: (grossly 4/5) LUE Assessment: (NT formally due to shoulder pain from Cspine issues) Activity Tolerance Endurance: Tolerates >30 minutes activity with rest breaks Other: increased time and rest breaks required Plan Occupational Therapy Care Plan Occupational Therapy Care Plan (Active) Template: OT - Occupational Therapy Problem: Activity Tolerance Dates: Start: 01/31/24 Disciplines: OT Goal: Tolerate > 30 minutes of activity WITHOUT rest breaks Dates: Start: 01/31/24 Expected End: 02/28/24 Description: Goal Description: Disciplines: OT Problem: Bed Mobility Dates: Start: 01/31/24 Disciplines: OT Goal: Patient will perform bed mobility with Modified [place] Dates: Start: 01/31/24 Expected End: 02/28/24 Description: Goal Description: Disciplines: OT Problem: Functional Mobility Dates: Start: 01/31/24 Disciplines: OT Goal: Patient will perform functional mobility with Modified [place] Dates: Start: 01/31/24 Expected End: 02/28/24 Description: Goal Description: Disciplines: OT Problem: Other (Customize) Dates: Start: 01/31/24 Disciplines: OT Goal: Improve Dates: Start: 01/31/24 Expected End: 02/28/24 Description: Goal Description: Complete ADLs [place] with AE/DME Disciplines: OT Problem: Sitting Balance Dates: Start: 01/31/24 Disciplines: OT Goal: Improve balance to good Dates: Start: 01/31/24 Expected End: 02/28/24 Description: Static Dynamic Disciplines: OT Problem: Standing Balance Dates: Start: 01/31/24 Disciplines: OT Goal: Improve balance to good Dates: Start: 01/31/24 Expected End: 02/28/24 Description: Static Dynamic Disciplines: OT Problem: Strength Dates: Start: 01/31/24 Disciplines: OT Goal: Improve strength Dates: Start: 01/31/24 Expected End: 02/28/24 Description: Of extremity/ location: Tolerate bilat UE exercises to increase strength and endurancefor self care tasks To facilitate: Disciplines: OT Problem: Transfers Dates: Start: 01/31/24 Disciplines: OT Goal: Patient will perform transfers with Modified [place] Dates: Start: 01/31/24 Expected End: 02/28/24 Description: Goal Description: Disciplines: OT Occupational Therapy Care Plan (Resolved) There are no resolved problems. Principal Problem: Closed fracture of right hip, initial encounter ([facility]) Active Problems: Myah-prosthetic fracture [facility] [employer] [id number] Consult note* Anne Ventura MD - 01/31/2024 9:48 AM EDT PM&R Consult Note HPI: 53-year-old male with history of hypertension admitted to the hospital secondary to a fall. Hestarted complaining of right hip pain. He denies any loss of consciousness, syncope or lightheadedness. He describes the pain as sharp character. He denies any numbness or tingling. He has been having difficulty with ambulation. Imaging showed right intertrochanteric fracture. He status post IM nailing. Postoperative weight-bearing as tolerated. He was admitted to rehab facility when he developedsignificant amount of pain secondary to a fall. CT showed extension of fracture. He was readmitted to the hospital underwent removal hardware right femur and IM nail right intertrochanteric hip fracture. PMH: Past Medical History: Diagnosis Date Asthma Back pain Chronic cough from lisinopril Chronic pain disorder Colon cancer ([facility]) COPD (chronic obstructive pulmonary disease) ([facility]) Depression Diabetes mellitus type 2, controlled ([facility]) Fibromyalgia, primary Fracture of right hip, closed, initial encounter ([facility]) 01/17/2024 GERD (gastroesophageal reflux disease) Hyperlipidemia Hypertension Insulin-treated type 2 diabetes mellitus ([facility]) Joint pain Kidney stones Liver disease Low back pain Neck pain Obesity Osteoarthritis Visual impairment PSH: Past Surgical History: Procedure Laterality Date BACK SURGERY COLON SURGERY resection, 2018, [facility] DAVINCI REPAIR HERNIA VENTRAL N/A 10/27/2021 Performed by Ridge Cedillo MD at [facility] DENTAL SURGERY pt had all teeth removed HERNIA REPAIR x's 2 INSERTION INTRAMEDULLARY NAIL FEMUR Right 01/30/2024 Performed by Ang Figueroa MD at [facility] INSERTION INTRAMEDULLARY NAIL FEMUR-TFNA HIP FX Right 01/18/2024 Performed by Ang Figueroa MD at [facility] ORTHOPEDIC SURGERY 2008 foot, infected foot REMOVAL HARDWARE INTRAMEDULLARY NAIL/KATERYNA FEMUR Right 01/30/2024 Performed by Ang Figueroa MD at [facility] Allergies Allergen Reactions Insulin Glargine Nausea And Vomiting and GI Disturbance basaglar Current Facility-Administered Medications: acetaminophen (TYLENOL EXTRA STRENGTH) tablet 1,000 mg, 1,000 mg, oral, Q8H, Demond Frazier MD, 1,000 mg at 01/31/24 0416 calcium citrate (CALCITRATE) tablet 400 mg, 400 mg, oral, TID with meals, Demond Frazier MD, 400 mgat 01/31/24 0749 carvediloL (COREG) tablet 6.25 mg, 6.25 mg, oral, BID with meals, Demond Frazier MD, 6.25 mg at 01/31/24 0750 cholecalciferol (vitamin D3) tablet 2,000 Units, 2,000 Units, oral, Daily, Demond Frazier MD, 2,000Units at 01/31/24 0748 citalopram (CeleXA) tablet 20 mg, 20 mg, oral, Daily, Demnod Frazier MD, 20 mg at 01/31/24 0748 cyanocobalamin tablet 1,000 mcg, 1,000 mcg, oral, Daily, Marsha Flores APRN-LICENSING REPRESENTATIVE, 1,000 mcg at 01/31/24 0748 cyclobenzaprine (FLEXERIL) tablet 10 mg, 10 mg, oral, BID PRN, Demond Frazier MD, 10 mg at 943 dextrose (GLUTOSE) 40 % gel 15 g, 15 g, oral, PRN, Demond Frazier MD dextrose 5 % (D5W) infusion, 100 mL/hr, intravenous, Continuous PRN, Demond Frazier MD dextrose 50 % in water (D50W) 50% solution 25 mL, 25 mL, intravenous, PRN, Demond Frazier MD enoxaparin (LOVENOX) syringe 40 mg, 40 mg, subcutaneous, Daily, Demond Frazier MD, 40 mg at 01/31/24 0523 ergocalciferol (DRISDOL) capsule 50,000 Units, 50,000 Units, oral, Weekly, Demond Frazier MD, 50,000 Units at 01/29/24 1315 folic acid (FOLVITE) tablet 1 mg, 1 mg, oral, Daily, DOV MedranoLICENSING REPRESENTATIVE, 1 mg at 01/31/24 0748 gabapentin (NEURONTIN) tablet 800 mg, 800 mg, oral, TID, Demond Frazier MD, 800 mg at 01/31/24 0522 glucagon HCL injection 1 mg, 1 mg, intramuscular, PRN, Demond Frazier MD hydrALAZINE (APRESOLINE) injection 10 mg, 10 mg, intravenous, Q6H PRN, Demond Frazier MD HYDROmorphone (PF) (DILAUDID) injection 1 mg, 1 mg, intravenous, Q3H PRN, Jalen Gan MD, 1 mg at01/31/24 0755 hyoscyamine sulfate (LEVSIN) tablet 125 mcg, 125 mcg, oral, 4x Daily, Demond Frazier MD, 125 mcg at01/31/24 0748 insulin glargine (LANTUS, SEMGLEE) injection pen 20 Units, 20 Units, subcutaneous, Daily, Demond Frazier MD, 20 Units at 01/31/24 0756 insulin lispro (HumaLOG) injection 1-5 Units, 1-5 Units, subcutaneous, TID with meals, Demond Frazier MD insulin lispro (HumaLOG) injection 2-10 Units, 2-10 Units, subcutaneous, TID with meals, Demond Frazier MD, 2 Units at 01/31/24 0756 insulin lispro (HumaLOG) injection 2-8 Units, 2-8 Units, subcutaneous, Nightly, Demond Frazier MD, 4 Units at 01/30/24 2116 ipratropium-albuteroL (DUONEB) 0.5 mg-3 mg(2.5 mg base)/3 mL nebulizer solution 3 mL, 3 mL, nebulization, Q6H PRN, Demond Frazier MD losartan (COZAAR) tablet 50 mg, 50 mg, oral, Daily, Malou Bergeron MD magnesium oxide (MAGOX) tablet 400 mg, 400 mg, oral, Daily, Demond Frazier MD, 400 mg at 01/31/24 0749 naloxone (NARCAN) injection 0.2 mg, 0.2 mg, intravenous, PRN, Ross Costello PA-C ondansetron (PF) (ZOFRAN) injection 4 mg, 4 mg, intravenous, Q4H PRN, Demond Frazier MD oxyCODONE (ROXICODONE) immediate release tablet 10 mg, 10 mg, oral, Q4H PRN, Demond Frazier MD, 10 mg at 01/31/24 0942 oxyCODONE (ROXICODONE) immediate release tablet 5 mg, 5 mg, oral, Q4H PRN, Demond Frazier MD pantoprazole (PROTONIX) EC tablet 40 mg, 40 mg, oral, Daily, Demond Frazier MD, 40 mg at 01/31/24 0522 rifAXIMin (XIFAXAN) tablet 550 mg, 550 mg, oral, Q12H SADA, Demond Frazier MD, 550 mg at 01/31/24 0747 sennosides-docusate sodium (SENOKOT-S) 8.6-50 mg 2 tablet, 2 tablet, oral, Nightly, Demond Frazier MD, 2 tablet at 01/30/240 sodium chloride 0.9 % flush 3 mL, 3 mL, intravenous, PRN, Jalen Gan MD, 3 mL at 01/31/24 0746 sucralfate (CARAFATE) tablet 1 g, 1 g, oral, 4x Daily, Demond Frazier MD, 1 g at 01/31/24 0750 tamsulosin (FLOMAX) 24 hr capsule 0.4 mg, 0.4 mg, oral, Nightly, Demond Frazier MD, 0.4 mg at 01/30/24 2121 traZODone (DESYREL) tablet 50 mg, 50 mg, oral, Nightly, Demond Frazier MD, 50 mg at 01/30/24 2241 Social History Socioeconomic History Marital status: Single Spouse name: Not on file Number of children: Not on file Years of education: Not on file Highest education level: Not on file Occupational History Not on file Tobacco Use Smoking status: Every Day Current packs/day: 0.50 Average packs/day: 0.5 packs/day for 20.0 years (10.0 ttl pk-yrs) Types: Cigarettes Smokeless tobacco: Never Vaping Use Vaping status: Never Used Substance and Sexual Activity Alcohol use: Not Currently Drug use: No Sexual activity: Defer Other Topics Concern Not on file Social History Narrative Not on file Social Determinants of Health Financial Resource Strain: Low Risk (01/22/2024) Overall Financial Resource Strain (CARDIA) Difficulty of Paying Living Expenses: Not hard at all Food Insecurity: No Food Insecurity (01/29/2024) Hunger Screening Food Insecurity - Worry: Never True Food Insecurity - Inability: Never True Transportation Needs: No Transportation Needs (01/29/2024) PRAPARE - Transportation Lack of Transportation (Medical): No Lack of Transportation (Non-Medical): No Physical Activity: Inactive (01/22/2024) Exercise Vital Sign Days of Exercise per Week: 0 days Minutes of Exercise per Session: 0 min Stress: No Stress Concern Present (01/22/2024) [place] [employer] - Occupational Stress Questionnaire Feeling of Stress : Not at all Social Connections: Socially Isolated (01/22/2024) Social Connection and Isolation Panel [NHANES] Frequency of Communication with Friends and Family: More than three times a week Frequency of Social Gatherings with Friends and Family: More than three times a week Attends [employer] Services: Never Active Member of Clubs or Organizations: No Attends Club or Organization Meetings: Never Marital Status: Interpersonal Safety: Not At Risk (01/29/2024) Humiliation, Afraid, Rape, and Kick questionnaire Fear of Current or Ex-Partner: No Emotionally Abused: No Physically Abused: No Sexually Abused: No Housing Instability: Low Risk (01/29/2024) Housing Instability Housing Instability: No Family History Problem Relation Age of Onset Heart disease Father Colon cancer Paternal Aunt Heart disease Maternal Grandmother Heart disease Paternal Grandmother Heart disease Paternal Grandfather ROS: A comprehensive 10+ review of systems was negative except for: What mentioned HPI Physical Exam: General Appearance: Healthy, alert, active, cooperative, and in no distress Head: Normocephalic, without obvious abnormality, atraumatic Eyes: conjunctivae/corneas clear. PERRL, EOM's intact. Fundi benign. ENT: ENT exam normal, no neck nodes or sinus tenderness and neck without nodes Neck: no adenopathy, no carotid bruit, no JVD, supple, symmetrical, trachea midline, and thyroid not enlarged, symmetric, no tenderness/mass/nodules Lungs: clear to auscultation bilaterally and normal percussion bilaterally Heart: regular rate and rhythm, S1, S2 normal, no murmur, click, rub or gallop, normal apical impulse, prominent apical impulse, and regular rate and rhythm Abdomen: soft, non-tender; bowel sounds normal; no masses, no organomegaly Extremities: extremities normal, atraumatic, no cyanosis or edema, Homans sign is negative, no signof DVT, and no edema, redness or tenderness in the calves or thighs Skin: Skin color, texture, turgor normal. No rashes or lesions Neurologic: Gait difficulty Impression: Status post fall Right hip intertrochanteric fracture Status post IM nailing Gait difficulty Hypertension Plan: Continue PT, OT DVT prophylaxis Pain Management Family education Cozaar for hypertension Will benefit from inpatient rehab Will follow up with you for rehab needs Thank you for the consultation Anne Ventura MD [facility] [employer] [facility] Work Phone: [phone] Consult note* Anne Ventura MD - 01/31/2024 9:48 AM EDT PM&R Consult Note HPI: 53-year-old male with history of hypertension admitted to the hospital secondary to a fall. Hestarted complaining of right hip pain. He denies any loss of consciousness, syncope or lightheadedness. He describes the pain as sharp character. He denies any numbness or tingling. He has been having difficulty with ambulation. Imaging showed right intertrochanteric fracture. He status post IM nailing. Postoperative weight-bearing as tolerated. He was admitted to rehab facility when he developedsignificant amount of pain secondary to a fall. CT showed extension of fracture. He was readmitted to the hospital underwent removal hardware right femur and IM nail right intertrochanteric hip fracture. PMH: Past Medical History: Diagnosis Date Asthma Back pain Chronic cough from lisinopril Chronic pain disorder Colon cancer ([facility]) COPD (chronic obstructive pulmonary disease) ([facility]) Depression Diabetes mellitus type 2, controlled ([facility]) Fibromyalgia, primary Fracture of right hip, closed, initial encounter ([facility]) 01/17/2024 GERD (gastroesophageal reflux disease) Hyperlipidemia Hypertension Insulin-treated type 2 diabetes mellitus ([facility]) Joint pain Kidney stones Liver disease Low back pain Neck pain Obesity Osteoarthritis Visual impairment PSH: Past Surgical History: Procedure Laterality Date BACK SURGERY COLON SURGERY resection, 2018, [facility] DAVINCI REPAIR HERNIA VENTRAL N/A 10/27/2021 Performed by Ridge Cedillo MD at [facility] DENTAL SURGERY pt had all teeth removed HERNIA REPAIR x's 2 INSERTION INTRAMEDULLARY NAIL FEMUR Right 01/30/2024 Performed by Ang Figueroa MD at [facility] INSERTION INTRAMEDULLARY NAIL FEMUR-TFNA HIP FX Right 01/18/2024 Performed by Ang Figueroa MD at [facility] ORTHOPEDIC SURGERY 2008 foot, infected foot REMOVAL HARDWARE INTRAMEDULLARY NAIL/KATERYNA FEMUR Right 01/30/2024 Performed by Ang Figueroa MD at [facility] Allergies Allergen Reactions Insulin Glargine Nausea And Vomiting and GI Disturbance madeline Current Facility-Administered Medications: acetaminophen (TYLENOL EXTRA STRENGTH) tablet 1,000 mg, 1,000 mg, oral, Q8H, Demond Frazier MD, 1,000 mg at 01/31/24 0416 calcium citrate (CALCITRATE) tablet 400 mg, 400 mg, oral, TID with meals, Demond Frazier MD, 400 mgat 01/31/24 0749 carvediloL (COREG) tablet 6.25 mg, 6.25 mg, oral, BID with meals, Demond Frazier MD, 6.25 mg at 01/31/24 0750 cholecalciferol (vitamin D3) tablet 2,000 Units, 2,000 Units, oral, Daily, Demond Frazier MD, 2,000Units at 01/31/24 0748 citalopram (CeleXA) tablet 20 mg, 20 mg, oral, Daily, Demond Frazier MD, 20 mg at 01/31/24 0748 cyanocobalamin tablet 1,000 mcg, 1,000 mcg, oral, Daily, Marsha Flores APRN-LICENSING REPRESENTATIVE, 1,000 mcg at 01/31/24 0748 cyclobenzaprine (FLEXERIL) tablet 10 mg, 10 mg, oral, BID PRN, Demond Frazier MD, 10 mg at 943 dextrose (GLUTOSE) 40 % gel 15 g, 15 g, oral, PRN, Demond Frazier MD dextrose 5 % (D5W) infusion, 100 mL/hr, intravenous, Continuous PRN, Demond Frazier MD dextrose 50 % in water (D50W) 50% solution 25 mL, 25 mL, intravenous, PRN, Demond Frazier MD enoxaparin (LOVENOX) syringe 40 mg, 40 mg, subcutaneous, Daily, Demond Frazier MD, 40 mg at 01/31/24 0523 ergocalciferol (DRISDOL) capsule 50,000 Units, 50,000 Units, oral, Weekly, Demond Frazier MD, 50,000 Units at 01/29/24 1315 folic acid (FOLVITE) tablet 1 mg, 1 mg, oral, Daily, Marsha Flores, HOSPITAL CHIEF FINANCIAL OFFICER-LICENSING REPRESENTATIVE, 1 mg at 01/31/24 0748 gabapentin (NEURONTIN) tablet 800 mg, 800 mg, oral, TID, Demond Frazier MD, 800 mg at 01/31/24 0522 glucagon HCL injection 1 mg, 1 mg, intramuscular, PRN, Demond Frazier MD hydrALAZINE (APRESOLINE) injection 10 mg, 10 mg, intravenous, Q6H PRN, Demond Frazier MD HYDROmorphone (PF) (DILAUDID) injection 1 mg, 1 mg, intravenous, Q3H PRN, Jalen Gan MD, 1 mg at01/31/24 0755 hyoscyamine sulfate (LEVSIN) tablet 125 mcg, 125 mcg, oral, 4x Daily, Demond Frazier MD, 125 mcg at01/31/24 0748 insulin glargine (LANTUS, SEMGLEE) injection pen 20 Units, 20 Units, subcutaneous, Daily, Demond Frazier MD, 20 Units at 01/31/24 0756 insulin lispro (HumaLOG) injection 1-5 Units, 1-5 Units, subcutaneous, TID with meals, Demond Frazier MD insulin lispro (HumaLOG) injection 2-10 Units, 2-10 Units, subcutaneous, TID with meals, Demond Frazier MD, 2 Units at 01/31/24 0756 insulin lispro (HumaLOG) injection 2-8 Units, 2-8 Units, subcutaneous, Nightly, Demond Frazier MD, 4 Units at 01/30/24 2116 ipratropium-albuteroL (DUONEB) 0.5 mg-3 mg(2.5 mg base)/3 mL nebulizer solution 3 mL, 3 mL, nebulization, Q6H PRN, Demond Frazier MD losartan (COZAAR) tablet 50 mg, 50 mg, oral, Daily, Malou Bergeron MD magnesium oxide (MAGOX) tablet 400 mg, 400 mg, oral, Daily, Demond Frazier MD, 400 mg at 01/31/24 0749 naloxone (NARCAN) injection 0.2 mg, 0.2 mg, intravenous, PRN, Ross Costello PA-C ondansetron (PF) (ZOFRAN) injection 4 mg, 4 mg, intravenous, Q4H PRN, Demond Frazier MD oxyCODONE (ROXICODONE) immediate release tablet 10 mg, 10 mg, oral, Q4H PRN, Demond Frazier MD, 10 mg at 01/31/24 0942 oxyCODONE (ROXICODONE) immediate release tablet 5 mg, 5 mg, oral, Q4H PRN, Demond Frazier MD pantoprazole (PROTONIX) EC tablet 40 mg, 40 mg, oral, Daily, Demond Frazier MD, 40 mg at 01/31/24 0522 rifAXIMin (XIFAXAN) tablet 550 mg, 550 mg, oral, Q12H SADA, Demond Frazier MD, 550 mg at 01/31/24 0747 sennosides-docusate sodium (SENOKOT-S) 8.6-50 mg 2 tablet, 2 tablet, oral, Nightly, Demond Frazier MD, 2 tablet at 01/30/24 2120 sodium chloride 0.9 % flush 3 mL, 3 mL, intravenous, PRN, Jalen Gan MD, 3 mL at 01/31/24 0746 sucralfate (CARAFATE) tablet 1 g, 1 g, oral, 4x Daily, Demond Frazier MD, 1 g at 01/31/24 0750 tamsulosin (FLOMAX) 24 hr capsule 0.4 mg, 0.4 mg, oral, Nightly, Demond Frazier MD, 0.4 mg at 01/30/24 2121 traZODone (DESYREL) tablet 50 mg, 50 mg, oral, Nightly, Demond Frazier MD, 50 mg at 01/30/24 2241 Social History Socioeconomic History Marital status: Single Spouse name: Not on file Number of children: Not on file Years of education: Not on file Highest education level: Not on file Occupational History Not on file Tobacco Use Smoking status: Every Day Current packs/day: 0.50 Average packs/day: 0.5 packs/day for 20.0 years (10.0 ttl pk-yrs) Types: Cigarettes Smokeless tobacco: Never Vaping Use Vaping status: Never Used Substance and Sexual Activity Alcohol use: Not Currently Drug use: No Sexual activity: Defer Other Topics Concern Not on file Social History Narrative Not on file Social Determinants of Health Financial Resource Strain: Low Risk (01/22/2024) Overall Financial Resource Strain (CARDIA) Difficulty of Paying Living Expenses: Not hard at all Food Insecurity: No Food Insecurity (01/29/2024) Hunger Screening Food Insecurity - Worry: Never True Food Insecurity - Inability: Never True Transportation Needs: No Transportation Needs (01/29/2024) PRAPARE - Transportation Lack of Transportation (Medical): No Lack of Transportation (Non-Medical): No Physical Activity: Inactive (01/22/2024) Exercise Vital Sign Days of Exercise per Week: 0 days Minutes of Exercise per Session: 0 min Stress: No Stress Concern Present (01/22/2024) [place] [employer] - Occupational Stress Questionnaire Feeling of Stress : Not at all Social Connections: Socially Isolated (01/22/2024) Social Connection and Isolation Panel [NHANES] Frequency of Communication with Friends and Family: More than three times a week Frequency of Social Gatherings with Friends and Family: More than three times a week Attends [employer] Services: Never Active Member of Clubs or Organizations: No Attends Club or Organization Meetings: Never Marital Status: Interpersonal Safety: Not At Risk (01/29/2024) Humiliation, Afraid, Rape, and Kick questionnaire Fear of Current or Ex-Partner: No Emotionally Abused: No Physically Abused: No Sexually Abused: No Housing Instability: Low Risk (01/29/2024) Housing Instability Housing Instability: No Family History Problem Relation Age of Onset Heart disease Father Colon cancer Paternal Aunt Heart disease Maternal Grandmother Heart disease Paternal Grandmother Heart disease Paternal Grandfather ROS: A comprehensive 10+ review of systems was negative except for: What mentioned HPI Physical Exam: General Appearance: Healthy, alert, active, cooperative, and in no distress Head: Normocephalic, without obvious abnormality, atraumatic Eyes: conjunctivae/corneas clear. PERRL, EOM's intact. Fundi benign. ENT: ENT exam normal, no neck nodes or sinus tenderness and neck without nodes Neck: no adenopathy, no carotid bruit, no JVD, supple, symmetrical, trachea midline, and thyroid not enlarged, symmetric, no tenderness/mass/nodules Lungs: clear to auscultation bilaterally and normal percussion bilaterally Heart: regular rate and rhythm, S1, S2 normal, no murmur, click, rub or gallop, normal apical impulse, prominent apical impulse, and regular rate and rhythm Abdomen: soft, non-tender; bowel sounds normal; no masses, no organomegaly Extremities: extremities normal, atraumatic, no cyanosis or edema, Homans sign is negative, no signof DVT, and no edema, redness or tenderness in the calves or thighs Skin: Skin color, texture, turgor normal. No rashes or lesions Neurologic: Gait difficulty Impression: Status post fall Right hip intertrochanteric fracture Status post IM nailing Gait difficulty Hypertension Plan: Continue PT, OT DVT prophylaxis Pain Management Family education Cozaar for hypertension Will benefit from inpatient rehab Will follow up with you for rehab needs Thank you for the consultation Anne Ventura MD * Marsha Flores APRN-LICENSING REPRESENTATIVE - 01/29/2024 12:43 PM EDTAssociated Order(s): CONSULT BENIGN HEMATOLOGY AND BLOOD MANAGEMENT Benign Hematology/ Patient Blood Management Consultation: Dr. Paul Flores DEPUTY JAILER Laura GASPAR Patient ID: Ruth Smith, 53 y.o. male Requested by: No ref. provider found PCP: Jd Du PA-C : 1970 REASON FOR CONSULTATION: Anemia/ hip fracture CHIEF COMPLAINT: Chief Complaint Patient presents with Fall Evaluation of Abnormal Diagnostic Test HISTORY OF PRESENT ILLNESS: Ruth Smith is a 53 y.o. male with history of hypertension, hyperlipidemia, diabetes type 2, COPD, hep C cirrhosis, colon cancer status post sigmoid colectomy, fibromyalgia, chronic pain syndrome recent right hip fracture who presented to the hospital with left hip pain. Blood Management is now consulted due to anemia. Patient is very upset. Very hard to understand what he is talking about, he is rambling somewhat. He answers questions appropriately. He is alert and oriented. States he is in severe pain. Patient denies any chest pain. Denies any lightheadedness or dizziness. PAST HEMATOLOGY / VASCULAR HISTORY: REVIEW OF SYSTEMS: Complete 10-point ROS is negative except as mentioned in HPI. PAST MEDICAL HISTORY: Past Medical History: Diagnosis Date Asthma Back pain Chronic cough from lisinopril Chronic pain disorder Colon cancer ([facility]) COPD (chronic obstructive pulmonary disease) ([facility]) Depression Diabetes mellitus type 2, controlled ([facility]) Fibromyalgia, primary Fracture of right hip, closed, initial encounter ([facility]) 01/17/2024 GERD (gastroesophageal reflux disease) Hyperlipidemia Hypertension Insulin-treated type 2 diabetes mellitus ([facility]) Joint pain Kidney stones Liver disease Low back pain Neck pain Obesity Osteoarthritis Visual impairment PAST SURGICAL HISTORY: Past Surgical History: Procedure Laterality Date BACK SURGERY COLON SURGERY resection, 2018, [facility] DAVINCI REPAIR HERNIA VENTRAL N/A 10/27/2021 Performed by Ridge Cedillo MD at [facility] DENTAL SURGERY pt had all teeth removed HERNIA REPAIR x's 2 INSERTION INTRAMEDULLARY NAIL FEMUR-TFNA HIP FX Right 01/18/2024 Performed by Ang Figueroa MD at [facility] ORTHOPEDIC SURGERY 2008 foot, infected foot PAST FAMILY HISTORY: Family History Problem Relation Age of Onset Heart disease Father Colon cancer Paternal Aunt Heart disease Maternal Grandmother Heart disease Paternal Grandmother Heart disease Paternal Grandfather SOCIAL HISTORY: Lives in home. Social History Socioeconomic History Marital status: Single Spouse name: Not on file Number of children: Not on file Years of education: Not on file Highest education level: Not on file Occupational History Not on file Tobacco Use Smoking status: Every Day Current packs/day: 0.50 Average packs/day: 0.5 packs/day for 20.0 years (10.0 ttl pk-yrs) Types: Cigarettes Smokeless tobacco: Never Vaping Use Vaping status: Never Used Substance and Sexual Activity Alcohol use: Not Currently Drug use: No Sexual activity: Defer Other Topics Concern Not on file Social History Narrative Not on file Social Determinants of Health Financial Resource Strain: Low Risk (01/22/2024) Overall Financial Resource Strain (CARDIA) Difficulty of Paying Living Expenses: Not hard at all Food Insecurity: No Food Insecurity (01/29/2024) Hunger Screening Food Insecurity - Worry: Never True Food Insecurity - Inability: Never True Transportation Needs: No Transportation Needs (01/29/2024) PRAPARE - Transportation Lack of Transportation (Medical): No Lack of Transportation (Non-Medical): No Physical Activity: Inactive (01/22/2024) Exercise Vital Sign Days of Exercise per Week: 0 days Minutes of Exercise per Session: 0 min Stress: No Stress Concern Present (01/22/2024) [place] [employer] - Occupational Stress Questionnaire Feeling of Stress : Not at all Social Connections: Socially Isolated (01/22/2024) Social Connection and Isolation Panel [NHANES] Frequency of Communication with Friends and Family: More than three times a week Frequency of Social Gatherings with Friends and Family: More than three times a week Attends [employer] Services: Never Active Member of Clubs or Organizations: No Attends Club or Organization Meetings: Never Marital Status: Interpersonal Safety: Not At Risk (01/29/2024) Humiliation, Afraid, Rape, and Kick questionnaire Fear of Current or Ex-Partner: No Emotionally Abused: No Physically Abused: No Sexually Abused: No Housing Instability: Low Risk (01/29/2024) Housing Instability Housing Instability: No MEDICATIONS: Current Facility-Administered Medications on File Prior to Encounter Medication Dose Route Frequency Provider Last Rate Last Admin [COMPLETED] acetaminophen (OFIRMEV) IVPB Premix 1,000 mg 1,000 mg intravenous Q6H DAGO Quezada Stopped at 01/28/24 8938 Current Outpatient Medications on File Prior to Encounter Medication Sig Dispense Refill acetaminophen (TYLENOL EXTRA STRENGTH) 500 mg tablet Take 2 tablets (1,000 mg total) by mouth every6 (six) hours. 30 tablet 0 albuterol (PROVENTIL HFA;VENTOLIN HFA) 90 mcg/actuation inhaler Inhale 2 puffs every 6 (six) hours as needed for wheezing. calcium citrate (CALCITRATE) 200 mg (950 mg) tablet Take 2 tablets (400 mg total) by mouth in the morning and 2 tablets (400 mg total) at noon and 2 tablets (400 mg total) in the evening. Take with meals. Do all this for 30 days. 180 tablet 0 carvediloL (COREG) 6.25 mg tablet Take 1 tablet (6.25 mg total) by mouth in the morning and 1 tablet (6.25 mg total) in the evening. Take with meals. cholecalciferol, vitamin D3, 2,000 units tablet Take 1 tablet (2,000 Units total) by mouth in the morning for 30 days. 30 tablet 0 citalopram (CeleXA) 20 mg tablet Take 1 tablet (20 mg total) by mouth in the morning. Indications: major depressive disorder. colestipoL (COLESTID) 1 g tablet Take 1 tablet (1 g total) by mouth in the morning. cyclobenzaprine (FLEXERIL) 10 mg tablet Take 1 tablet (10 mg total) by mouth 2 (two) times a day asneeded for muscle spasms. 10 tablet 0 enoxaparin (LOVENOX) 40 mg/0.4 mL syringe Inject 0.4 mL (40 mg total) under the skin in the morningfor 30 days. ergocalciferol (DRISDOL) 1,250 mcg (50,000 unit) capsule Take 1 capsule (50,000 Units total) by mouth once a week for 3 doses. 3 capsule 0 fenofibrate (LOFIBRA) 160 mg tablet Take 1 tablet (160 mg total) by mouth in the morning. gabapentin (NEURONTIN) 800 mg tablet Take 1 tablet (800 mg total) by mouth in the morning and 1 tablet (800 mg total) at noon and 1 tablet (800 mg total) in the evening and 1 tablet (800 mg total) before bedtime. Indications: neuropathic pain. 9am, 2pm, 8pm, midnight. HUMALOG KWIKPEN INSULIN 100 unit/mL insulin pen Inject 18 Units under the skin in the morning and 18 Units at noon and 18 Units in the evening. Inject with meals. 0 hydroCHLOROthiazide (HYDRODIURIL) 25 mg tablet Take 1 tablet (25 mg total) by mouth daily. hyoscyamine (ANASPAZ,LEVSIN) 0.125 mg tablet Take 1 tablet (0.125 mg total) by mouth in the morningand 1 tablet (0.125 mg total) at noon and 1 tablet (0.125 mg total) in the evening and 1 tablet (0.125 mg total) before bedtime. linagliptin-metFORMIN 2.5-1,000 mg tablet Take 1 tablet by mouth 2 (two) times daily at 0800 and 1500. losartan (COZAAR) 100 mg tablet Take 1 tablet (100 mg total) by mouth in the morning. magnesium oxide (MAGOX) 400 mg tablet Take 1 tablet (400 mg total) by mouth in the morning. meloxicam (MOBIC) 15 mg tablet Take 1 tablet (15 mg total) by mouth daily as needed for pain. omeprazole (PriLOSEC) 40 mg capsule Take 1 capsule (40 mg total) by mouth in the morning and at bedtime. ondansetron (ZOFRAN) 8 mg tablet Take 1 tablet (8 mg total) by mouth every 8 (eight) hours as needed for nausea or vomiting. OZEMPIC 0.25 mg or 0.5 mg (2 mg/3 mL) pen injector Inject 0.5 mg under the skin once a week. Monday sennosides-docusate sodium (SENOKOT-S) 8.6-50 mg Take 2 tablets by mouth in the morning and 2 tablets before bedtime. 60 tablet 1 sucralfate (CARAFATE) 1 gram tablet Take 1 tablet (1 g total) by mouth in the morning and 1 tablet (1 g total) at noon and 1 tablet (1 g total) in the evening and 1 tablet (1 g total) before bedtime. tamsulosin (FLOMAX) 0.4 mg capsule Take 1 capsule (0.4 mg total) by mouth nightly. 0 traZODone (DESYREL) 50 mg tablet Take 1 tablet (50 mg total) by mouth nightly. TRESIBA FLEXTOUCH U-100 100 unit/mL (3 mL) insulin pen Inject 20 Units under the skin in the morning. VIBERZI 100 mg tablet Take 1 tablet (100 mg total) by mouth in the morning and 1 tablet (100 mg total) in the evening. Take with meals. XIFAXAN 550 mg tablet Take 1 tablet (550 mg total) by mouth in the morning and at bedtime. UNIFINE PENTIPS PLUS 31 gauge x 1/4 needle use four times a day as directed 0 ALLERGIES: Allergies Allergen Reactions Insulin Glargine Nausea And Vomiting and GI Disturbance basaglar PHYSICAL EXAMINATION: Vital signs: BP 128/83 Pulse 103 Temp 36.6 C (97.9 F) (Oral) Resp 20 Ht 185.4 cm (6' 1 ) SpO2 98% BMI 33.25 kg/m General appearance: awake, alert, oriented, no acute distress HEENT: supple CV: RRR, no murmurs PULM: CTAB, no wheezing ABD: soft, NT/ND NEURO: Negative for focal deficit, weakness or loss of sensation. EXT: No deformities. No clubbing, cyanosis left hip drsg- discoloration to lateral hip- bruising LABORATORY DATA: Lab Results Component Value Date WBC 9.5 01/29/2024 WBC 10.2 01/29/2024 WBC 8.6 01/27/2024 HGB 11.9 (L) 01/29/2024 HGB 11.4 (L) 01/29/2024 HGB 10.5 (L) 01/27/2024 HCT 33.6 (L) 01/29/2024 HCT 33.1 (L) 01/29/2024 HCT 30.5 (L) 01/27/2024 MCV 82 01/29/2024 MCV 83 01/29/2024 MCV 83 01/27/2024 PLT 192 01/29/2024 PLT 185 01/29/2024 PLT 172 01/27/2024 Lab Results Component Value Date GLU 204 (H) 01/29/2024 CALCIUM 9.5 01/29/2024 SODIUM 131 (L) 01/29/2024 K 3.7 01/29/2024 CO2 22 01/29/2024 BUN 9 01/29/2024 CREATININE 0.54 (L) 01/29/2024 GFR >60 11/03/2021 GFR >60 11/03/2021 Lab Results Component Value Date ALT 9 01/23/2024 AST 21 01/23/2024 ALKPHOS 47 01/23/2024 Lab Results Component Value Date INR 1.4 (H) 01/29/2024 INR 1.0 01/17/2024 INR 1.1 01/17/2024 PROTIME 15.6 (H) 01/29/2024 PROTIME 12.2 01/17/2024 PROTIME 12.5 01/17/2024 Lab Results Component Value Date FERRITIN 220 01/29/2024 FERRITIN 42 01/17/2024 IRON 17 (L) 01/29/2024 IRON 74 01/17/2024 TIBC 357 01/29/2024 TIBC 449 (H) 01/17/2024 IRONSAT 5 (L) 01/29/2024 IRONSAT 16 (L) 01/17/2024 [id number] 307 01/29/2024 [id number] 242 01/17/2024 FOLATE 8.4 01/29/2024 FOLATE 9.3 01/17/2024 RETICULOCYTE 1.1 01/17/2024 ASSESSMENT/RECOMMENDATIONS: Right hip fracture/Anemia/Blood management- patient consult to blood management due to anemia and need for hemoglobin optimization if possible for surgery. Looking at previous hemoglobin levels he tends to run around 15.5 hemoglobin level. Of note, he has chronic thrombocytopenia since at least 2017 around 100 2018 Hep c antibody positive 05/29/2020- ct ABD-Cirrhosis with portal hypertensive splenomegaly 10/31/2021- CT ABD- Liver gallbladder spleen pancreas adrenal glands and kidneys show no acute findings -Cirrhotic morphology of the liver. Parenchymal calcifications in the right hepatic lobe. 08/19/2022-hemoglobin 15.3 01/17/2024-hemoglobin 13.7 01/18/2024 -Status post IM nail right intertrochanteric hip fracture 01/25/2024-hemoglobin 13.0 01/27/2024-hemoglobin 10.5 Patient has been on Lovenox and mobic Plans are for surgery tomorrow Patient had ferritin level of 42 on 01/16 when he had his 1st surgery. Now currently elevated at 220- likely inaccurate in his case given his acute fracture- iron sat is even lower than what it was acouple weeks ago, indicating he has underlying iron deficiency. His folate is low normal at this time. Discussed ways to optimize hemoglobin level. He does have a history of colon cancer. We discussed IV iron and NIK to help avoid any need for blood products if possible. Chronic Thrombocytopenia/hep C cirrhosis- Platelets seems stable at this time. Will add B12 supplementation and folate supplementation- Plan- Feraheme 510 mg x1 B12 supplementation and folate supplementation started Will monitor need for nik - reticulocyte pending Can follow-up with benign Hematology regarding chronic thrombocytopenia-if needed Encourage anemia tolerance when patient is hemodynamically stable and moderate symptoms of anemia -transfusion decision should be based on patient's assessment and not be based on laboratory parameters alone Blood products increase risk of infection, sepsis, hospital length of stay, impaired wound healing,TRIM, TRLI, Ischemic events, bleeding, thrombosis- and more Treatment aimed at control of underlying chronic condition Energy conservation with frequent rest periods Blood conservation is an essential part of blood management so we recommend limiting phlebotomy (especially the use of daily labs) to a as needed for medical decision making only. Can use Secure chat messaging anytime during business hours Monday-Monday 8 am to 5 pm. Marsha Flores DEPUTY JAILER Patient Blood Management/Bloodless Medicine Office [phone] DAGO Medrano 01/29/24 1342 [facility] [place] Plan of care note * Plan of Care - Mia Goddard RN - 01/31/2024 9:06 AM EDT Problem: Pain Goal: Patient goal is pain score less than 4, able to rest, and participant in treatment plan as appropriate Description: INTERVENTIONS: 1. Encourage patient or legal charter representative to report early pain and ask for pain medicine when needed 2. Assess pain using appropriate pain scale and include the scale used when documenting 3. Administer analgesics based on type and severity of pain and evaluate response within appropriate time frame 4. Implement non-pharmacological measures as appropriate and evaluate response 5. Consider cultural and social influences on pain and pain management 6. Notify LIP if interventions ineffective or patient reports new pain 7. Monitor vital signs including pulse ox, end-tidal CO2 based on pain intervention 8. Reassess pain per policy 9. Teach patient or legal charter representative interventions for comforting Outcome: Progressing Note: Evaluation of progress towards goal: Patinet rates pain level between 6 to 10 is medicated asordered, states has acceptable pain relief. Will continue to moniter [facility] [place]06-18[facility] Plan of care note* Plan of Care - Santi Parks RN - 01/30/2024 7:35 PM EDT Problem: Pain Goal: Patient goal is pain score less than 4, able to rest, and participant in treatment plan as appropriate Description: INTERVENTIONS: 1. Encourage patient or legal charter representative to report early pain and ask for pain medicine when needed 2. Assess pain using appropriate pain scale and include the scale used when documenting 3. Administer analgesics based on type and severity of pain and evaluate response within appropriate time frame 4. Implement non-pharmacological measures as appropriate and evaluate response 5. Consider cultural and social influences on pain and pain management 6. Notify LIP if interventions ineffective or patient reports new pain 7. Monitor vital signs including pulse ox, end-tidal CO2 based on pain intervention 8. Reassess pain per policy 9. Teach patient or legal charter representative interventions for comforting Outcome: Progressing Note: Evaluation of progress towards goal: pain assessed and analgesics administered as needed, nonpharmacological measures implemented as needed. Problem: Safety Goal: Patient will be injury free during hospitalization Description: INTERVENTIONS: 1. Assess patient's risk for falls and implement fall prevention plan of care per policy 2. Provide and maintain a safe environment 3. Proper use of double Identifiers 4. Medication administration using the 5 rights 5. Hand hygiene 6. Specimens are labeled at the bedside 7. Instruct patient/ patient charter representative about use of safety devices 8. Include patient/ patient charter representative in decisions related to safety Outcome: Progressing Note: Evaluation of progress towards goal: Safety measures initiated/maintained. Pt remains safe from harm/injury/falls Problem: Infection Goal: Absence of infection during hospitalization Description: Interventions: 1. Assess and monitor for signs and symptoms of infection 2. Monitor lab/diagnostic results 3. Monitor all insertion sites i.e., indwelling lines, tubes and drains 4. Monitor endotracheal (as able) and nasal secretions for changes in amount and color 5. Administer medications as ordered 6. Instruct and encourage patient and family to use good hand hygiene technique 7. Identify and instruct patient/patient charter representative in use of appropriate isolation precautionsfor identified infection/symptoms 8. Provide and discuss with patient/patient charter representative on educational MDRO sheet 9. Encourage and monitor nutritional status daily and consult maxillofacial pathology if indicated 10. Implement neutropenic guidelines as needed 11. Review exposure to history of communicable disease and recent travel history on admission 12. Encourage annual influenza vaccine 13. Encourage pneumonia vaccine Outcome: Progressing Note: Evaluation of progress towards goal: Pt afebrile at this time, continue to monitor for signs infection Problem: Knowledge Deficit Goal: Patient/patient charter representative demonstrates understanding of disease process, treatment plan,medications, and discharge instructions Description: INTERVENTIONS 1. Complete learning assessment and assess knowledge base 2. Provide teaching at level of understanding 3. Provide teaching via preferred learning method(s) Outcome: Progressing Note: Evaluation of progress towards goal: POC discussed with patient. Questions answered PRN. [facility] [place]06-18-2024 Plan of care note* Plan of Care - Rachel Almanzar RN - 01/30/2024 6:16 PM EDT Problem: Pain Goal: Patient goal is pain score less than 4, able to rest, and participant in treatment plan as appropriate Description: INTERVENTIONS: 1. Encourage patient or legal charter representative to report early pain and ask for pain medicine when needed 2. Assess pain using appropriate pain scale and include the scale used when documenting 3. Administer analgesics based on type and severity of pain and evaluate response within appropriate time frame 4. Implement non-pharmacological measures as appropriate and evaluate response 5. Consider cultural and social influences on pain and pain management 6. Notify LIP if interventions ineffective or patient reports new pain 7. Monitor vital signs including pulse ox, end-tidal CO2 based on pain intervention 8. Reassess pain per policy 9. Teach patient or legal charter representative interventions for comforting Outcome: Progressing Note: Evaluation of progress towards goal: Encourage patient or legal charter representative to report early pain and ask for pain medicine when needed. Assessing pain using appropriate pain scale and include the scale used when documenting. Monitor vital signs including pulse ox. Reassessing pain per polic y. Teach patient interventions for non-pharmacological pain management. Problem: Safety Goal: Patient will be injury free during hospitalization Description: INTERVENTIONS: 1. Assess patient's risk for falls and implement fall prevention plan of care per policy 2. Provide and maintain a safe environment 3. Proper use of double Identifiers 4. Medication administration using the 5 rights 5. Hand hygiene 6. Specimens are labeled at the bedside 7. Instruct patient/ patient charter representative about use of safety devices 8. Include patient/ patient charter representative in decisions related to safety Outcome: Progressing Note: Evaluation of progress towards goal: Pt's bed is low and locked. Environment is clutter free. 2/4 side rails up. Call light and personal items within reach. Non-skid socks worn during ambulation. Problem: Infection Goal: Absence of infection during hospitalization Description: Interventions: 1. Assess and monitor for signs and symptoms of infection 2. Monitor lab/diagnostic results 3. Monitor all insertion sites i.e., indwelling lines, tubes and drains 4. Monitor endotracheal (as able) and nasal secretions for changes in amount and color 5. Administer medications as ordered 6. Instruct and encourage patient and family to use good hand hygiene technique 7. Identify and instruct patient/patient charter representative in use of appropriate isolation precautionsfor identified infection/symptoms 8. Provide and discuss with patient/patient charter representative on educational MDRO sheet 9. Encourage and monitor nutritional status daily and consult maxillofacial pathology if indicated 10. Implement neutropenic guidelines as needed 11. Review exposure to history of communicable disease and recent travel history on admission 12. Encourage annual influenza vaccine 13. Encourage pneumonia vaccine Outcome: Progressing Note: Evaluation of progress towards goal: Nurse will assess and monitor for signs and symptoms of infection with lab/diagnostic results, monitor all insertion sites. Administer medications as ordered. Instruct and encourage patient and family to use good hand hygiene technique. Encourage and monitor nutritional status daily and consult maxillofacial pathology if indicated. Encourage annual influenza vaccine and pneumonia vaccine. T [facility] [place]06-18-2024 NoteXR FEMUR RT 2+ VIEWS Clinical history: Postop hardware evaluation Right femur: 01/30/2024 COMPARISON: 01/29/2024 FINDINGS: 2 views of the femur were obtained. 4 images are submitted. An intramedullary nail traverses the proximal femoral fracture. Cerclage wires present in the proximal shaft region. No hardware complication is evident. Fracture alignment is near anatomic. Hip and knee alignment are anatomic with degenerative changes. IMPRESSION: Status post internal fixation of the proximal femoral fracture. Finalized by Jun Ortega MD on 01/30/2024 1:28 [facility] 01-30-2024 NoteClinical history: Postop hardware evaluation Right femur: 01/30/2024 COMPARISON: 01/29/2024 FINDINGS: 2 views of the femur were obtained. 4 images are submitted. An intramedullary nail traverses the proximal femoral fracture. Cerclage wires present in the proximal shaft region. No hardware complication is evident. Fracture alignment is near anatomic. Hip and knee alignment are anatomic with degenerative changes. IMPRESSION: Status post internal fixation of the proximal femoral fracture. Finalized by Jun Ortega MD on 01/30/2024 1:28 [id number] Procedure note* Op Note - Ang Figueroa MD - 01/30/2024 9:23 AM EDT DATE OF OPERATION: January 30, 2024 PREOPERATIVE DIAGNOSIS: 1. right intertrochanteric hip fracture with new periprosthetic subtrochanteric fracture after a second fall at rehab POSTOPERATIVE DIAGNOSIS: 1. Same OPERATION: 1. IM nail right intertrochanteric/subtrochanteric hip fracture.- 35594 2. Removal hardware Right femur - SURGEON: Ang Figueroa MD WHITE SOURER: Jalen Gan MD ANESTHESIA: General. MEDICATIONS: vanc IV preop. Vancomycin placed in the surgical field as well ESTIMATED BLOOD LOSS: 300 mL. FLUIDS: 700 mL of crystalloid. URINE OUTPUT: 0 mL. DRAINS: None. COMPLICATIONS: None. SPECIMEN: None. DISPOSITION: PACU. FINDINGS: Soft compartments and probable pulse at the completion of the case. Brisk capillary refill. Stable in alignment rotation of the fracture. Safe extra-articular placement of all implants. Short nail removed. Periprosthetic subtrochanteric femur fracture reduced with clamps and a cable and held with a long nail. Hematoma extracted from the prior surgical field with no signs of infection PLAN: Weight bearing as tolerated on limb right lower extremity, 24 hours of antibiotics, DVT prophylaxis with Lovenox, PT/OT, monitor x-rays and labs, will need rehab placement most likely. Stable for disposition rehab when stable from a medical standpoint. Geriatric fracture program. IMPLANTS USED: Synthes 44 cm, 12 mm, 125 degrees, 95 mm lag screw with 58 & 44 mm distal locking bolt. HPI/INDICATION FOR SURGERY: Ruth Smith is a 53 y.o. male status post 2nd fall at a rehab center after IM nail ofhis hip about 10 days ago with complaints of right hip pain and inability to ambulate. Radiographicimaging identified a right intertrochanteric hip fracture that was prior fixed with a short nail that has a new fracture in the subtrochanteric region extending down to the distal interlocking screw indicating the patient for the aforementioned surgical stabilization procedure. Saw and evaluated the patient in the office in discussed continuing to try to manage this with a short nail verses revising it to a long nail. The patient was quite uncomfortable thus he wanted to change into a long nailfor more stability which I think is a very reasonable treatment options for this myah implant fracture. The patient was seen and evaluated and optimized by medical service for surgical intervention. I discussed the patient and family preoperatively risks, benefits, alternatives, surgical and nonsurg ical management including bleeding, infection, , damage to normal structure, PE, DVT, VT, stroke, nonunion, malunion, chronic pain, arthrosis, arthritis, limited function, avascular necrosis of femoral head and need for further surgery. They understand the high mortality rate associated with hip fractures, limited function, walking, mortality and morbidity associated with hip fractures as well as the risks of recumbency (PE/DVT, UTI, decubitus ulcer, pneumonia). DESCRIPTION OF PROCEDURE: The patient was identified in the preoperative holding area. My initials were placed on operative extremity. Consent was deemed appropriate. he was taken to the operating room by the anesthesia staffwith controlled airway in the C-spine all times during the case. he was placed supine on the bed and underwent general anesthesia. He was placed in the lateral decubitus position on the [place] tablewith a peralta bag extra in the standard fashion after care was taken to identify and paddle bony prominences. The arm was secured in the standard fashion. he was provisonally draped in plastic draping and then scrubbed with chlorhexidine scrub. he was prepped and draped in standard sterile orthopedic fashion. A time-out was performed. Everybody in the room stopped. Consent was read aloud and surgical procedure commenced. After antibiotics were confirmed and given, my extremity jeffrey was identified. Longitude incision was made over the lateral side of the hip. Sharp and blunt dissection taken downto level the fascia. Electrocautery was used to obtain hemostasis. The fascia was opened in a subfascial hematoma was extracted. Dissection down to the top of the nail, the proximal locking screw in the distal interlocking screw was completed. The periprosthetic fracture was identified. Two wires were placed up in the cephalomedullary reason to hold the intertrochanteric area appropriately reduced. The distal interlocking screw, proximal screw and nail were all removed in the standard fashion removing it. Two clamps were then placed on the myah implant fracture that extended down the shaft and it was reduced anatomically. One cable was placed directly on bone to secure this and clamped appropriately. A guidewire was then placed down to the level of the knee and confirmed fluoroscopic imaging and reamed to 14 mm. The nail was then placed to the appropriate depth. AP and lateral fluoroscopic imaging confirmed appropriate placement of the nail at the level of the hip. It was confirmed daniel in appropriate position on on AP and lateral distally. Through a second incision, the jig was placed for the proximal insertion of the wire. This was placed in center-center deep position in the proximal head/neck fragment. Length assessment was performed. Proximal preparation for the lag screw was performed and the aforementioned lag screw was placed in the deep center-center position, and verified to be in an extra-articular safe position. Compression across the fracture was obtained in the standard fashion and identified under fluoroscopic localization. The distal interlocking screw was then placed by using a perfect afognak technique with fluoroscopy. The drill bit was inserted, length assessment was performed and the screw was placed of appropriate length. A 2nd screw was placed inthe standard fashion. Final AP and lateral fluoroscopic imaging in the hip fracture identified appropriate length, alignment, and rotation of her femur with fixation of her fracture. There was safe, extra-articular placement of the implants. All provisional wires reduction tools and jigs were removed. All wounds were copiously irrigated with normal saline. Deep layers were closed with #1 Vicryl, 2-0 Vicryl and esmer for the skin. Sterile dressings were applied. Prior to closure vancomycin was placed in the depth of the surgical field. The patient was removed from the fracture table in the standard fashion. Awaken from anesthesia in stable condition, transferred to PACU. All counts were correct at the end of the case. his has soft compartments and palpable pulses. Evidence of infection was not visualized at time of surgery. ANG FIGUEROA MD [facility] [phone] Attending History and physical note* Ang Figueroa MD - 01/30/2024 9:19 AM EDT Images from the original note were not included. I have seen and evaluated the patient. The above documentation in accurate and he is optimized for the planned intervention. ANG FIGUEROA MD Source Note - Ang Figueroa MD - 01/29/2024 9:00 AM EDT Attending Attestation: I saw the patient. I performed the critical/sharma portions of the service. I was directly involved inthe management and treatment plan of the patient. I reviewed the resident's note. Additional Notes/Findings: Returns in follow up today. He had a short nail done about 2 weeks ago and returns in follow-up after a fall at the facility. X-rays and CT scan of his right hip identify a periprosthetic proximal femur fracture involving the greater trochanter and posterior femoral cortex down to the distal interlocking screw in the subtrochanteric area. The patient attempted to maintain at the facility over the weekend but it has just been in a significant amount of pain. We discussed operative and nonoperative management of this injury. He has beenessentially trialing nonsurgical management of this periprosthetic fracture over the weekend and that is failing. He is having trouble maintaining his weight-bearing status, he has not mobilizing very well. He was doing much better prior to this new fall. His x-rays are stable today from the clinicbut the CT scan shows extension down to the distal interlocking screw thus I am concerned that there has not the amount of stability needed for this fracture to heal well and increases his risk of fra nk failure of the fixation. I discussed today with the patient and his . The mutual decision was made to proceed with revision ORIF to remove this short nail, plus or minus cable the fracture and then insert a longer nail. His hemoglobin is 11. At this point I think he is uncomfortable enough which is send him down to the emergency departmentto get him admitted, optimized from the medical team and plan nonsurgical revision tomorrow. Discussed this all with the family and him. All questions were addressed. We reviewed the standard risks benefits alternatives surgical nonsurgical management. All questions were addressed. LEVEL OF SERVICE: Ortho MDM Diagnosis Complexity -: [4] MODERATE: 1 acute, complicated injury Ortho Data Level: [5] Ortho Data Moderate/Extensive Level category 1 (need 3): review of external notes, review of results, and order unique tests Ortho Data Extensive Level Category 2: Independent Test Interpretation Ortho Tx/Test Risk Level (highest): [5] Ortho High Risk Options: Major Surgery (elective) (90d Global): WITH RISKS LEVEL OF MDM -: [5] HIGH level based on above criteria. Ang Figueroa MD. [employer] Work Phone: [phone] History and physical note* Ang Figueroa MD - 01/30/2024 9:19 AM EDT Images from the original note were not included. I have seen and evaluated the patient. The above documentation in accurate and he is optimized for the planned intervention. ANG FIGUEROA MD Source Note - Ang Figueroa MD - 01/29/2024 9:00 AM EDT Attending Attestation: I saw the patient. I performed the critical/sharma portions of the service. I was directly involved inthe management and treatment plan of the patient. I reviewed the resident's note. Additional Notes/Findings: Returns in follow up today. He had a short nail done about 2 weeks ago and returns in follow-up after a fall at the facility. X-rays and CT scan of his right hip identify a periprosthetic proximal femur fracture involving the greater trochanter and posterior femoral cortex down to the distal interlocking screw in the subtrochanteric area. The patient attempted to maintain at the facility over the weekend but it has just been in a significant amount of pain. We discussed operative and nonoperative management of this injury. He has beenessentially trialing nonsurgical management of this periprosthetic fracture over the weekend and that is failing. He is having trouble maintaining his weight-bearing status, he has not mobilizing very well. He was doing much better prior to this new fall. His x-rays are stable today from the clinicbut the CT scan shows extension down to the distal interlocking screw thus I am concerned that there has not the amount of stability needed for this fracture to heal well and increases his risk of fra nk failure of the fixation. I discussed today with the patient and his . The mutual decision was made to proceed with revision ORIF to remove this short nail, plus or minus cable the fracture and then insert a longer nail. His hemoglobin is 11. At this point I think he is uncomfortable enough which is send him down to the emergency departmentto get him admitted, optimized from the medical team and plan nonsurgical revision tomorrow. Discussed this all with the family and him. All questions were addressed. We reviewed the standard risks benefits alternatives surgical nonsurgical management. All questions were addressed. LEVEL OF SERVICE: Ortho MDM Diagnosis Complexity -: [4] MODERATE: 1 acute, complicated injury Ortho Data Level: [5] Ortho Data Moderate/Extensive Level category 1 (need 3): review of external notes, review of results, and order unique tests Ortho Data Extensive Level Category 2: Independent Test Interpretation Ortho Tx/Test Risk Level (highest): [5] Ortho High Risk Options: Major Surgery (elective) (90d Global): WITH RISKS LEVEL OF MDM -: [5] HIGH level based on above criteria. Ang Figueroa MD. * Demond Frazier MD - 01/29/2024 10:52 AM EDT [facility] HOSPITALIST HISTORY AND PHYSICAL EXAM Patient's Name: Ruth Smith Age: 53 y.o. Sex: male D.O.B: 1970 Admission Date: 01/29/2024 Admitting Physician: No admitting provider for patient encounter. Primary Care Physician: Jd Du PA-C CHIEF COMPLAINT: Left hip pain. HISTORY OF PRESENT ILLNESS: 53 year old male with history of hypertension, hyperlipidemia, diabetes 2, COPD, hepatitis C cirrhosis, colon cancer status post sigmoid colectomy, fibromyalgia, chronic pain syndrome, recent right intertrochanteric hip fracture, was transfer from [facility] for evaluation of severe pain. Patient was recently discharged to [facility] after right intertrochanteric hip fracture surgery. Two days ago, on Monday, patient failed and landed on his right hip causing worsening pain.Initial hip x-ray at that time was unremarkable without evidence of fracture. However, pain did notimprove and progressively worsen. CT brain hip demonstrated periprosthetic right hip fracture. Therefore, he was transferred to [facility] for surgical intervention. Patient was seen and evaluated by Dr. Potts and plan for surgical repair tomorrow. On physical exam, patient was alert and oriented x3. He was in severe pain. He denies chest pain orshortness a breath. There was no evidence of lower extremity edema. ASSESSMENTS: Acute periprosthetic right hip fracture secondary to mechanical fall. Plan for surgical intervention tomorrow. Recent right intertrochanteric hip fracture. Status post IM nail right intertrochanteric hip fracture on 01/18/[address] Figueroa. Mild hyponatremia. Likely from HCTZ. Primary hypertension. Hyperlipidemia. Diabetes 2. COPD without exacerbation. Hepatitis C cirrhosis. History of colon cancer. Status post sigmoid colectomy. Fibromyalgia. Chronic pain syndrome. Irritable bowel syndrome. Benign prostatic hypertrophy Code status: FULL CODE. PLANS: Patient will be admitted to Internal service. Will start patient on pain management. Orthopedic surgery plan for surgical intervention tomorrow. Patient did not have any angina or heart failure. RCRI score 1 carries 6% risk of cardiac butnon-prohibition. Patient can proceed to surgery without further cardiac workup. Continue Coreg and losartan. Hold HCTZ due to hyponatremia. Add hydralazine p.r.n. for systolic blood pressure greater than 170 mmHg. Resume Lantus and add intermediate intensity sliding scale. Will add Lovenox for DVT prophylaxis. Fall risk precaution. PAST MEDICAL HISTORY: Past Medical History: Diagnosis Date Asthma Back pain Chronic cough from lisinopril Chronic pain disorder Colon cancer ([facility]) COPD (chronic obstructive pulmonary disease) ([facility]) Depression Diabetes mellitus type 2, controlled ([facility]) Fibromyalgia, primary Fracture of right hip, closed, initial encounter ([facility]) 01/17/2024 GERD (gastroesophageal reflux disease) Hyperlipidemia Hypertension Insulin-treated type 2 diabetes mellitus ([facility]) Joint pain Kidney stones Liver disease Low back pain Neck pain Obesity Osteoarthritis Visual impairment PAST SURGICAL HISTORY: Past Surgical History: Procedure Laterality Date BACK SURGERY COLON SURGERY resection, 2018, [facility] DAVINCI REPAIR HERNIA VENTRAL N/A 10/27/2021 Performed by Ridge Cedillo MD at [facility] DENTAL SURGERY pt had all teeth removed HERNIA REPAIR x's 2 INSERTION INTRAMEDULLARY NAIL FEMUR-TFNA HIP FX Right 01/18/2024 Performed by Ang Figueroa MD at [facility] ORTHOPEDIC SURGERY 2007 foot, infected foot PAST TRAVEL HISTORY: Travel Screening Question Response Have you been in contact with someone who was sick? No / Unsure Do you have any of the following new or worsening symptoms? None of these Have you traveled internationally or domestically in the last month? No Travel History Travel since 12/29/23 No documented travel since 12/29/23 HOME MEDICATIONS: (Not in a hospital admission) ALLERGY: Allergies Allergen Reactions Insulin Glargine Nausea And Vomiting and GI Disturbance SOCIAL HISTORY: Social History Socioeconomic History Marital status: Single Tobacco Use Smoking status: Every Day Current packs/day: 0.50 Average packs/day: 0.5 packs/day for 20.0 years (10.0 ttl pk-yrs) Types: Cigarettes Smokeless tobacco: Never Vaping Use Vaping status: Never Used Substance and Sexual Activity Alcohol use: Not Currently Drug use: No Sexual activity: Defer Social Determinants of Health Financial Resource Strain: Low Risk (01/22/2024) Overall Financial Resource Strain (CARDIA) Difficulty of Paying Living Expenses: Not hard at all Food Insecurity: No Food Insecurity (01/29/2024) Hunger Screening Food Insecurity - Worry: Never True Food Insecurity - Inability: Never True Transportation Needs: No Transportation Needs (01/23/2024) PRAPARE - Transportation Lack of Transportation (Medical): No Lack of Transportation (Non-Medical): No Physical Activity: Inactive (01/22/2024) Exercise Vital Sign Days of Exercise per Week: 0 days Minutes of Exercise per Session: 0 min Stress: No Stress Concern Present (01/22/2024) [place] [employer] - Occupational Stress Questionnaire Feeling of Stress : Not at all Social Connections: Socially Isolated (01/22/2024) Social Connection and Isolation Panel [NHANES] Frequency of Communication with Friends and Family: More than three times a week Frequency of Social Gatherings with Friends and Family: More than three times a week Attends [employer] Services: Never Active Member of Clubs or Organizations: No Attends Club or Organization Meetings: Never Marital Status: Interpersonal Safety: Not At Risk (01/22/2024) Humiliation, Afraid, Rape, and Kick questionnaire Fear of Current or Ex-Partner: No Emotionally Abused: No Physically Abused: No Sexually Abused: No Housing Instability: Low Risk (01/22/2024) Housing Instability Housing Instability: No FAMILY HISTORY: Family History Problem Relation Age of Onset Heart disease Father Colon cancer Paternal Aunt Heart disease Maternal Grandmother Heart disease Paternal Grandmother Heart disease Paternal Grandfather REVIEW OF SYSTEMS: 10 system review is negative except for HPI. PHYSICAL EXAM: BP (!) 139/91 Pulse 99 Resp 24 SpO2 97% Physical Exam Cardiovascular: Rate and Rhythm: Normal rate and regular rhythm. Heart sounds: No murmur heard. No friction rub. No gallop. Pulmonary: Effort: Pulmonary effort is normal. Breath sounds: Normal breath sounds. No wheezing. Abdominal: General: Bowel sounds are normal. Palpations: Abdomen is soft. Musculoskeletal: General: No swelling. Comments: Right hip with ecchymosis. No bleeding or erythema noted. Decreased range of motion due to pain. Neurological: Mental Status: He is oriented to person, place, and time. Psychiatric: Mood and Affect: Mood normal. LABS: Recent Results (from the past 72 hour(s)) Bedside Glucose *Place/Obtain serum glucose if >500(>600 MRH) per glucometer. Collection Time: 01/26/24 11:51 AM Result Value Ref Range Bedside glucose 221 (H) 65 - 99 mg/dL Bedside Glucose *Place/Obtain serum glucose if >500(>600 MRH) per glucometer. Collection Time: 01/26/24 2:59 PM Result Value Ref Range Bedside glucose 190 (H) 65 - 99 mg/dL Bedside Glucose *Place/Obtain serum glucose if >500(>600 MRH) per glucometer. Collection Time: 01/26/24 7:39 PM Result Value Ref Range Bedside glucose 267 (H) 65 - 99 mg/dL Bedside Glucose *Place/Obtain serum glucose if >500(>600 MRH) per glucometer. Collection Time: 01/26/24 8:55 PM Result Value Ref Range Bedside glucose 310 (H) 65 - 99 mg/dL Bedside Glucose *Place/Obtain serum glucose if >500(>600 MRH) per glucometer. Collection Time: 01/27/24 6:31 AM Result Value Ref Range Bedside glucose 217 (H) 65 - 99 mg/dL Bedside Glucose *Place/Obtain serum glucose if >500(>600 MRH) per glucometer. Collection Time: 01/27/24 11:42 AM Result Value Ref Range Bedside glucose 225 (H) 65 - 99 mg/dL Bedside Glucose *Place/Obtain serum glucose if >500(>600 MRH) per glucometer. Collection Time: 01/27/24 5:15 PM Result Value Ref Range Bedside glucose 195 (H) 65 - 99 mg/dL CBC auto differential Collection Time: 01/27/24 5:20 PM Result Value Ref Range White Blood Cells 8.6 4.0 - 11.0 X10E9/L RBC count 3.66 (L) 4.10 - 5.70 X10E12/L Hemoglobin 10.5 (L) 13.0 - 17.0 g/dL Hematocrit 30.5 (L) 39 - 49 % MCV 83 80 - 100 fL MCH 28.6 27 - 34 pg MCHC 34.3 32 - 36 g/dL RDW 16.0 (H) 11.5 - 15.0 % Platelets 172 150 - 450 X10E9/L MPV 10.8 7 - 12 fL % neutrophils 72.3 % % lymphocytes 19.8 % % monocytes 7.2 % % eosinophils 0.2 % % Basophils 0.5 % Neutrophils Absolute (A) 6.2 1.5 - 6.6 X10E9/L Lymphocytes Absolute 1.7 1.0 - 3.5 X10E9/L Monocytes Absolute 0.6 0 - 0.9 X10E9/L Eosinophils Absolute 0.0 0.0 - 0.4 X10E9/L Basophils Absolute 0.0 0.0 - 0.2 X10E9/L Bedside Glucose *Place/Obtain serum glucose if >500(>600 MRH) per glucometer. Collection Time: 01/27/24 8:14 PM Result Value Ref Range Bedside glucose 170 (H) 65 - 99 mg/dL Bedside Glucose *Place/Obtain serum glucose if >500(>600 MRH) per glucometer. Collection Time: 01/28/24 6:09 AM Result Value Ref Range Bedside glucose 203 (H) 65 - 99 mg/dL Bedside Glucose *Place/Obtain serum glucose if >500(>600 MRH) per glucometer. Collection Time: 01/28/24 11:50 AM Result Value Ref Range Bedside glucose 244 (H) 65 - 99 mg/dL Bedside Glucose *Place/Obtain serum glucose if >500(>600 MRH) per glucometer. Collection Time: 01/28/24 8:25 PM Result Value Ref Range Bedside glucose 194 (H) 65 - 99 mg/dL Bedside Glucose *Place/Obtain serum glucose if >500(>600 MRH) per glucometer. Collection Time: 01/29/24 5:39 AM Result Value Ref Range Bedside glucose 199 (H) 65 - 99 mg/dL Basic Metabolic Panel Collection Time: 01/29/24 5:40 AM Result Value Ref Range Sodium 131 (L) 134 - 146 mmol/L Potassium, Bld 3.7 3.5 - 5.0 mmol/L Chloride 95 (L) 98 - 109 mmol/L CO2 24 22 - 32 mmol/L Anion gap 12 5 - 15 mmol/L BUN 9 5 - 23 mg/dL Creatinine 0.51 (L) 0.60 - 1.30 mg/dL Glucose 212 (H) 65 - 99 mg/dL Calcium 9.4 8.5 - 10.5 mg/dL eGFR (CKD-EPI)non-race dependent >90 >59 ml/min/1.73sq.m CBC without diff Collection Time: 01/29/24 5:40 AM Result Value Ref Range White Blood Cells 10.2 4.0 - 11.0 X10E9/L RBC count 3.97 (L) 4.10 - 5.70 X10E12/L Hemoglobin 11.4 (L) 13.0 - 17.0 g/dL Hematocrit 33.1 (L) 39 - 49 % MCV 83 80 - 100 fL MCH 28.7 27 - 34 pg MCHC 34.4 32 - 36 g/dL RDW 15.9 (H) 11.5 - 15.0 % Platelets 185 150 - 450 X10E9/L MPV 10.8 7 - 12 fL DIAGNOSTIC STUDIES: CT hip right without contrast Result Date: 01/27/2024 Narrative: CT HIP RT WO CONT Clinical history:Hip replacement, periprosthetic fracture suspected; Fall with increased pain. Recent femur fracture s/p IM nail. Comparison: 01/04. TECHNIQUE: CT right hip performed without contrast with axial coronal and sagittal imaging. 3-D volume rendered surface shaded images were generated and reviewed under concurrent physician supervision for better delineation of the femoral fracture anatomy. Findings: There is a new right proximal femoral intramedullary kateryna transfixing a proximal right femoral intertrochanteric fracture. There is a comminuted fracture of the right greater trochanter as well. There is a linear lucency of the medial distal femoral lyndsey x on axial image #482 likely related to nutrient foramen. There is fracture of the posterior femoral cortex just proximal to the nutrient foramen which appears to be new. Impression: Intramedullary kateryna fixation of the proximal right femur transfixing the proximal right femoral intertrochanteric fracture with fracture of the right greater tuberosity. There is extension of the fracture to involve the posterior femoral cortex along the intramedullary kateryna as above which appears to be new from prior. All CT scans at this facility use dose modulation, iterative reconstruction, and/or weight based dosing when appropriate to reduce radiation dose to as low as reasonably achievable. Finalized by Marc Paredes MD on 01/27/2024 10:58 AM X-ray hip right 2-3 views with or without pelvis Result Date: 01/27/2024 Narrative: History: Fall with right hip pain. Fall just over one week ago with internal fixation ofright intertrochanteric hip fracture 9 days ago. Exam/Technique: AP pelvis with coned-down AP and lateral right hip. Comparison: 01/21/2024 Findings: Internally fixing right hip hardware with no evidence of acute complications. Fracture fragment at the greater tuberosity remains essentially undisplaced. There is no evidence of new recent fractures or other focal bony abnormalities in the pelvic bones or proximal femurs. IMPRESSION: No new acute abnormalities demonstrated Finalized by Caio Porras MD on 01/27/2024 6:44 AM X-ray hip right 2-3 views with or without pelvis Result Date: 01/21/2024 Narrative: XR HIP RT 2-3 VIEWS W OR WO PELVIS Clinical history:increasing pain - recent IMN right hip right hip pain Comparison: 01/18/2024 Impression: Stable postoperative changes and alignment with right proximal femoral intramedullary kateryna. No new or acute process. Finalized byMarc Paredes MD on 01/21/2024 3:06 PM X-ray hip right 2-3 views with or without pelvis Result Date: 01/18/2024 Narrative: XR HIP RT 2-3 VIEWS W OR WO PELVIS INDICATION: Pain FINDINGS: Intraoperative fluoroscopy. No radiologist present during the examination. Reference Air Kerma = 8.63 mGy Fluoroscopy time: 40seconds Saved images: 13 IMPRESSION: Intraoperative fluoroscopy provided as above. See operative report for additional details. Finalized by Nathan Skinner on 01/18/2024 3:43 PM X-ray hip right 2-3 views with or without pelvis Result Date: 01/18/2024 Narrative: XR HIP RT 2-3 VIEWS W PELVIS HISTORY: post op right hip short IMN. COMPARISON: none IMPRESSION: PELVIS: No displaced or pelvic fracture. Degenerative changes sacroiliac joints, symphysis pubis. RIGHT HIP: Right femoral intramedullary nail transfixes nondisplaced intertrochanteric fracture. No hardware complication. Cutaneous esmer. Finalized by Valdo Gonzalez MD on 01/18/2024 3:40 PM X-ray spine lumbar 2 or 3 views Result Date: 01/18/2024 Narrative: HISTORY: A 53-year-old male with the history of the right hip fracture. Complaining of the low back pain. TECHNIQUE: Lumbar spine: AP and lateral views, 2 views COMPARISON: No relevant prior studies are available for comparison. FINDINGS: Vertebral heights are normal. There is no evidence of compression fracture, spondylolysis or spondylolisthesis. There are degenerative changes in thelumbar spine. L2-L3, L4-L5 and L5-S1 disc spaces are reduced. Facet arthropathy seen at L4-L5 and L5-S1. Pedicles are intact. Both sacroiliac joints are unremarkable. There are degenerative changes in the hip joints. Bowel gas pattern is nonobstructive with significant amount of feces. IMPRESSION: * No evidence of compression fracture, spondylolisthesis or acute bony pathology. * Diffuse disc degenerative disease in the lumbar spine with reduction of disc spaces at multiple levels. Facet arthropathy seen at L4-L5 and L5-S1. Finalized by Clifford Jauregui MD on 01/18/2024 8:31 AM X-ray chest 1 view Result Date: 01/17/2024 Narrative: CHEST 1 VIEW HISTORY: Preop COMPARISON: 10/31/2021 FINDINGS: No focal airspace disease, pulmonary edema, pleural effusions, or pneumothorax. Normal cardiomediastinal silhouette. IMPRESSION:No acute cardiopulmonary disease. Finalized by Sylvester Collins MD on 01/17/2024 10:48 PM X-ray femur right 2+ views Result Date: 01/17/2024 Narrative: History: Pain. Fracture. Surgical planning study Study: Right Femur Two view study. Comparison: None Impression: Nondisplaced fracture involving the greater trochanter is appreciated. No distal femoral fracture is seen. Study is hampered by patient positioning. Mineralization appears less than expected and at least osteopenic. Continued follow-up with orthopedics is suggested. Finalized by Donavon Chen MD on 01/17/2024 11:[address] hip right without contrast Result Date: 01/17/2024 Narrative: CT right hip without contrast HISTORY: Fracture COMPARISON: Radiograph earlier same day TECHNIQUE: CT right hip without contrast performed according to standard protocol. FINDINGS: Acute fracture extending from the right greater trochanter through the intertrochanteric region. No displacement. Hip joint intact. No additional fractures. Soft tissue structures are unremarkable. IMPRESSION: * Acute nondisplaced intertrochanteric right hip fracture. All CT scans at this facility use dosemodulation, iterative reconstruction, and/or weight based dosing when appropriate to reduce radiation dose to as low as reasonably achievable. Finalized by Sylvester Collins MD on 01/17/2024 4:37 AM X-ray hip right 2-3 views with or without pelvis Result Date: 01/17/2024 Narrative: XR HIP RT 2-3 VIEWS W OR WO PELVIS HISTORY: Hip pain, fall, injury COMPARISON: None FINDINGS: AP and lateral views of the right hip with an AP pelvis view obtained. Acute, nondisplaced fracture involving the right greater trochanter. There is no destructive osseous lesion. The joint space is well maintained without degenerative changes. The osseous structures are well mineralized. IMPRESSION: * Acute, nondisplaced fracture involving the right greater trochanter. Extension through theintertrochanteric region not fully excluded on these images. Approved by Resident: Singh Cervantes DO on 01/17/2024 3:49 AM Sylvester Alvarado MD have personally reviewed the image(s) and agree with and/or edited the report Finalized by Sylvester Collins MD on 01/17/2024 3:54 AM X-ray knee right 1 or 2 views Result Date: 01/17/2024 Narrative: 2 VIEWS RIGHT KNEE HISTORY: Fall, pain COMPARISON: None FINDINGS: Chondrocalcinosis. No acute fracture. No dislocation. IMPRESSION: No acute osseous abnormalities in the right knee. Finalized by Sylvester Collins MD on 01/17/2024 3:49 AM Electronically signed by: Demond Frazier MD This note was created with the assistance of a speech-recognition program. Although the intention is to generate a document that actually reflects the content of the visit, no guarantees can be provided that every mistake has been identified and corrected by editing. [facility] [place]* PT/OT/THERMAL SURFACING MACHINE OPERATOR - WILLARD Chavira/L - 01/30/2024 8:43 AM EDT Occupational Therapy CANCEL - Deferred OT attempted. Pt off floor at surgery. Will check back as able. [facility] [place] Progress note* PT/OT/THERMAL SURFACING MACHINE OPERATOR - Lindsay Infatne PT - 01/30/2024 8:41 AM EDT Physical Therapy CANCEL - Deferred (Pt currently off the unit in surgery. Will complete PT eval post-op as able.) [facility] [place]24 Plan of care note* Plan of Care - Santi Parks RN - 01/29/2024 8:51 PM EDT Problem: Pain Goal: Patient goal is pain score less than 4, able to rest, and participant in treatment plan as appropriate Description: INTERVENTIONS: 1. Encourage patient or legal charter representative to report early pain and ask for pain medicine when needed 2. Assess pain using appropriate pain scale and include the scale used when documenting 3. Administer analgesics based on type and severity of pain and evaluate response within appropriate time frame 4. Implement non-pharmacological measures as appropriate and evaluate response 5. Consider cultural and social influences on pain and pain management 6. Notify LIP if interventions ineffective or patient reports new pain 7. Monitor vital signs including pulse ox, end-tidal CO2 based on pain intervention 8. Reassess pain per policy 9. Teach patient or legal charter representative interventions for comforting Outcome: Progressing Note: Evaluation of progress towards goal: pain assessed and analgesics administered as needed, nonpharmacological measures implemented as needed. Problem: Safety Goal: Patient will be injury free during hospitalization Description: INTERVENTIONS: 1. Assess patient's risk for falls and implement fall prevention plan of care per policy 2. Provide and maintain a safe environment 3. Proper use of double Identifiers 4. Medication administration using the 5 rights 5. Hand hygiene 6. Specimens are labeled at the bedside 7. Instruct patient/ patient charter representative about use of safety devices 8. Include patient/ patient charter representative in decisions related to safety Outcome: Progressing Note: Evaluation of progress towards goal: Safety measures initiated/maintained. Pt remains safe from harm/injury/falls Problem: Infection Goal: Absence of infection during hospitalization Description: Interventions: 1. Assess and monitor for signs and symptoms of infection 2. Monitor lab/diagnostic results 3. Monitor all insertion sites i.e., indwelling lines, tubes and drains 4. Monitor endotracheal (as able) and nasal secretions for changes in amount and color 5. Administer medications as ordered 6. Instruct and encourage patient and family to use good hand hygiene technique 7. Identify and instruct patient/patient charter representative in use of appropriate isolation precautionsfor identified infection/symptoms 8. Provide and discuss with patient/patient charter representative on educational MDRO sheet 9. Encourage and monitor nutritional status daily and consult maxillofacial pathology if indicated 10. Implement neutropenic guidelines as needed 11. Review exposure to history of communicable disease and recent travel history on admission 12. Encourage annual influenza vaccine 13. Encourage pneumonia vaccine Outcome: Progressing Note: Evaluation of progress towards goal: Pt afebrile at this time, continue to monitor for signs infection Problem: Knowledge Deficit Goal: Patient/patient charter representative demonstrates understanding of disease process, treatment plan,medications, and discharge instructions Description: INTERVENTIONS 1. Complete learning assessment and assess knowledge base 2. Provide teaching at level of understanding 3. Provide teaching via preferred learning method(s) Outcome: Progressing Note: Evaluation of progress towards goal: POC discussed with patient. Questions answered PRN. [facility] [place]06-17-2024 Consult note* Marsha Flores APRN-LICENSING REPRESENTATIVE - 01/29/2024 12:43 PM EDTAssociated Order(s): CONSULT BENIGN HEMATOLOGY AND BLOOD MANAGEMENT Benign Hematology/ Patient Blood Management Consultation: Dr. Paul Flores DEPUTY JAILER Laura GASPAR Patient ID: Ruth Smith, 53 y.o. male Requested by: No ref. provider found PCP: Jd Du PA-C : 1970 REASON FOR CONSULTATION: Anemia/ hip fracture CHIEF COMPLAINT: Chief Complaint Patient presents with Fall Evaluation of Abnormal Diagnostic Test HISTORY OF PRESENT ILLNESS: Ruth Smith is a 53 y.o. male with history of hypertension, hyperlipidemia, diabetes type 2, COPD, hep C cirrhosis, colon cancer status post sigmoid colectomy, fibromyalgia, chronic pain syndrome recent right hip fracture who presented to the hospital with left hip pain. Blood Management is now consulted due to anemia. Patient is very upset. Very hard to understand what he is talking about, he is rambling somewhat. He answers questions appropriately. He is alert and oriented. States he is in severe pain. Patient denies any chest pain. Denies any lightheadedness or dizziness. PAST HEMATOLOGY / VASCULAR HISTORY: REVIEW OF SYSTEMS: Complete 10-point ROS is negative except as mentioned in HPI. PAST MEDICAL HISTORY: Past Medical History: Diagnosis Date Asthma Back pain Chronic cough from lisinopril Chronic pain disorder Colon cancer ([facility]) COPD (chronic obstructive pulmonary disease) ([facility]) Depression Diabetes mellitus type 2, controlled ([facility]) Fibromyalgia, primary Fracture of right hip, closed, initial encounter ([facility]) 01/17/2024 GERD (gastroesophageal reflux disease) Hyperlipidemia Hypertension Insulin-treated type 2 diabetes mellitus ([facility]) Joint pain Kidney stones Liver disease Low back pain Neck pain Obesity Osteoarthritis Visual impairment PAST SURGICAL HISTORY: Past Surgical History: Procedure Laterality Date BACK SURGERY COLON SURGERY resection, 2018, [facility] DAVINCI REPAIR HERNIA VENTRAL N/A 10/27/2021 Performed by Ridge Cedillo MD at [facility] DENTAL SURGERY pt had all teeth removed HERNIA REPAIR x's 2 INSERTION INTRAMEDULLARY NAIL FEMUR-TFNA HIP FX Right 01/18/2024 Performed by Ang Figueroa MD at [facility] 2008 foot, infected foot PAST FAMILY HISTORY: Family History Problem Relation Age of Onset Heart disease Father Colon cancer Paternal Aunt Heart disease Maternal Grandmother Heart disease Paternal Grandmother Heart disease Paternal Grandfather SOCIAL HISTORY: Lives in home. Social History Socioeconomic History Marital status: Single Spouse name: Not on file Number of children: Not on file Years of education: Not on file Highest education level: Not on file Occupational History Not on file Tobacco Use Smoking status: Every Day Current packs/day: 0.50 Average packs/day: 0.5 packs/day for 20.0 years (10.0 ttl pk-yrs) Types: Cigarettes Smokeless tobacco: Never Vaping Use Vaping status: Never Used Substance and Sexual Activity Alcohol use: Not Currently Drug use: No Sexual activity: Defer Other Topics Concern Not on file Social History Narrative Not on file Social Determinants of Health Financial Resource Strain: Low Risk (01/22/2024) Overall Financial Resource Strain (CARDIA) Difficulty of Paying Living Expenses: Not hard at all Food Insecurity: No Food Insecurity (01/29/2024) Hunger Screening Food Insecurity - Worry: Never True Food Insecurity - Inability: Never True Transportation Needs: No Transportation Needs (01/29/2024) PRAPARE - Transportation Lack of Transportation (Medical): No Lack of Transportation (Non-Medical): No Physical Activity: Inactive (01/22/2024) Exercise Vital Sign Days of Exercise per Week: 0 days Minutes of Exercise per Session: 0 min Stress: No Stress Concern Present (01/22/2024) [place] [employer] - Occupational Stress Questionnaire Feeling of Stress : Not at all Social Connections: Socially Isolated (01/22/2024) Social Connection and Isolation Panel [NHANES] Frequency of Communication with Friends and Family: More than three times a week Frequency of Social Gatherings with Friends and Family: More than three times a week Attends [employer] Services: Never Active Member of Clubs or Organizations: No Attends Club or Organization Meetings: Never Marital Status: Interpersonal Safety: Not At Risk (01/29/2024) Humiliation, Afraid, Rape, and Kick questionnaire Fear of Current or Ex-Partner: No Emotionally Abused: No Physically Abused: No Sexually Abused: No Housing Instability: Low Risk (01/29/2024) Housing Instability Housing Instability: No MEDICATIONS: Current Facility-Administered Medications on File Prior to Encounter Medication Dose Route Frequency Provider Last Rate Last Admin [COMPLETED] acetaminophen (OFIRMEV) IVPB Premix 1,000 mg 1,000 mg intravenous Q6H Zabrina WangDAGO ríos Stopped at 01/28/24 4784 Current Outpatient Medications on File Prior to Encounter Medication Sig Dispense Refill acetaminophen (TYLENOL EXTRA STRENGTH) 500 mg tablet Take 2 tablets (1,000 mg total) by mouth every6 (six) hours. 30 tablet 0 albuterol (PROVENTIL HFA;VENTOLIN HFA) 90 mcg/actuation inhaler Inhale 2 puffs every 6 (six) hours as needed for wheezing. calcium citrate (CALCITRATE) 200 mg (950 mg) tablet Take 2 tablets (400 mg total) by mouth in the morning and 2 tablets (400 mg total) at noon and 2 tablets (400 mg total) in the evening. Take with meals. Do all this for 30 days. 180 tablet 0 carvediloL (COREG) 6.25 mg tablet Take 1 tablet (6.25 mg total) by mouth in the morning and 1 tablet (6.25 mg total) in the evening. Take with meals. cholecalciferol, vitamin D3, 2,000 units tablet Take 1 tablet (2,000 Units total) by mouth in the morning for 30 days. 30 tablet 0 citalopram (CeleXA) 20 mg tablet Take 1 tablet (20 mg total) by mouth in the morning. Indications: major depressive disorder. colestipoL (COLESTID) 1 g tablet Take 1 tablet (1 g total) by mouth in the morning. cyclobenzaprine (FLEXERIL) 10 mg tablet Take 1 tablet (10 mg total) by mouth 2 (two) times a day asneeded for muscle spasms. 10 tablet 0 enoxaparin (LOVENOX) 40 mg/0.4 mL syringe Inject 0.4 mL (40 mg total) under the skin in the morningfor 30 days. ergocalciferol (DRISDOL) 1,250 mcg (50,000 unit) capsule Take 1 capsule (50,000 Units total) by mouth once a week for 3 doses. 3 capsule 0 fenofibrate (LOFIBRA) 160 mg tablet Take 1 tablet (160 mg total) by mouth in the morning. gabapentin (NEURONTIN) 800 mg tablet Take 1 tablet (800 mg total) by mouth in the morning and 1 tablet (800 mg total) at noon and 1 tablet (800 mg total) in the evening and 1 tablet (800 mg total) before bedtime. Indications: neuropathic pain. 9am, 2pm, 8pm, midnight. HUMALOG KWIKPEN INSULIN 100 unit/mL insulin pen Inject 18 Units under the skin in the morning and 18 Units at noon and 18 Units in the evening. Inject with meals. 0 hydroCHLOROthiazide (HYDRODIURIL) 25 mg tablet Take 1 tablet (25 mg total) by mouth daily. hyoscyamine (ANASPAZ,LEVSIN) 0.125 mg tablet Take 1 tablet (0.125 mg total) by mouth in the morningand 1 tablet (0.125 mg total) at noon and 1 tablet (0.125 mg total) in the evening and 1 tablet (0.125 mg total) before bedtime. linagliptin-metFORMIN 2.5-1,000 mg tablet Take 1 tablet by mouth 2 (two) times daily at 0800 and 1500. losartan (COZAAR) 100 mg tablet Take 1 tablet (100 mg total) by mouth in the morning. magnesium oxide (MAGOX) 400 mg tablet Take 1 tablet (400 mg total) by mouth in the morning. meloxicam (MOBIC) 15 mg tablet Take 1 tablet (15 mg total) by mouth daily as needed for pain. omeprazole (PriLOSEC) 40 mg capsule Take 1 capsule (40 mg total) by mouth in the morning and at bedtime. ondansetron (ZOFRAN) 8 mg tablet Take 1 tablet (8 mg total) by mouth every 8 (eight) hours as needed for nausea or vomiting. OZEMPIC 0.25 mg or 0.5 mg (2 mg/3 mL) pen injector Inject 0.5 mg under the skin once a week. Monday sennosides-docusate sodium (SENOKOT-S) 8.6-50 mg Take 2 tablets by mouth in the morning and 2 tablets before bedtime. 60 tablet 1 sucralfate (CARAFATE) 1 gram tablet Take 1 tablet (1 g total) by mouth in the morning and 1 tablet (1 g total) at noon and 1 tablet (1 g total) in the evening and 1 tablet (1 g total) before bedtime. tamsulosin (FLOMAX) 0.4 mg capsule Take 1 capsule (0.4 mg total) by mouth nightly. 0 traZODone (DESYREL) 50 mg tablet Take 1 tablet (50 mg total) by mouth nightly. TRESIBA FLEXTOUCH U-100 100 unit/mL (3 mL) insulin pen Inject 20 Units under the skin in the morning. VIBERZI 100 mg tablet Take 1 tablet (100 mg total) by mouth in the morning and 1 tablet (100 mg total) in the evening. Take with meals. XIFAXAN 550 mg tablet Take 1 tablet (550 mg total) by mouth in the morning and at bedtime. UNIFINE PENTIPS PLUS 31 gauge x 1/4 needle use four times a day as directed 0 ALLERGIES: Allergies Allergen Reactions Insulin Glargine Nausea And Vomiting and GI Disturbance basaglar PHYSICAL EXAMINATION: Vital signs: BP 128/83 Pulse 103 Temp 36.6 C (97.9 F) (Oral) Resp 20 Ht 185.4 cm (6' 1 ) SpO2 98% BMI 33.25 kg/m General appearance: awake, alert, oriented, no acute distress HEENT: supple CV: RRR, no murmurs PULM: CTAB, no wheezing ABD: soft, NT/ND NEURO: Negative for focal deficit, weakness or loss of sensation. EXT: No deformities. No clubbing, cyanosis left hip drsg- discoloration to lateral hip- bruising LABORATORY DATA: Lab Results Component Value Date WBC 9.5 01/29/2024 WBC 10.2 01/29/2024 WBC 8.6 01/27/2024 HGB 11.9 (L) 01/29/2024 HGB 11.4 (L) 01/29/2024 HGB 10.5 (L) 01/27/2024 HCT 33.6 (L) 01/29/2024 HCT 33.1 (L) 01/29/2024 HCT 30.5 (L) 01/27/2024 MCV 82 01/29/2024 MCV 83 01/29/2024 MCV 83 01/27/2024 PLT 192 01/29/2024 PLT 185 01/29/2024 PLT 172 01/27/2024 Lab Results Component Value Date GLU 204 (H) 01/29/2024 CALCIUM 9.5 01/29/2024 SODIUM 131 (L) 01/29/2024 K 3.7 01/29/2024 CO2 22 01/29/2024 BUN 9 01/29/2024 CREATININE 0.54 (L) 01/29/2024 GFR >60 11/03/2021 GFR >60 11/03/2021 Lab Results Component Value Date ALT 9 01/23/2024 AST 21 01/23/2024 ALKPHOS 47 01/23/2024 Lab Results Component Value Date INR 1.4 (H) 01/29/2024 INR 1.0 01/17/2024 INR 1.1 01/17/2024 PROTIME 15.6 (H) 01/29/2024 PROTIME 12.2 01/17/2024 PROTIME 12.5 01/17/2024 Lab Results Component Value Date FERRITIN 220 01/29/2024 FERRITIN 42 01/17/2024 IRON 17 (L) 01/29/2024 IRON 74 01/17/2024 TIBC 357 01/29/2024 TIBC 449 (H) 01/17/2024 IRONSAT 5 (L) 01/29/2024 IRONSAT 16 (L) 01/17/2024 [id number] 307 01/29/2024 [id number] 242 01/17/2024 FOLATE 8.4 01/29/2024 FOLATE 9.3 01/17/2024 RETICULOCYTE 1.1 01/17/2024 ASSESSMENT/RECOMMENDATIONS: Right hip fracture/Anemia/Blood management- patient consult to blood management due to anemia and need for hemoglobin optimization if possible for surgery. Looking at previous hemoglobin levels he tends to run around 15.5 hemoglobin level. Of note, he has chronic thrombocytopenia since at least 2017 around 100 2018 Hep c antibody positive 05/29/2020- ct ABD-Cirrhosis with portal hypertensive splenomegaly 10/31/2021- CT ABD- Liver gallbladder spleen pancreas adrenal glands and kidneys show no acute findings -Cirrhotic morphology of the liver. Parenchymal calcifications in the right hepatic lobe. 08/19/2022-hemoglobin 15.3 01/17/2024-hemoglobin 13.7 01/18/2024 -Status post IM nail right intertrochanteric hip fracture 01/25/2024-hemoglobin 13.0 01/27/2024-hemoglobin 10.5 Patient has been on Lovenox and mobic Plans are for surgery tomorrow Patient had ferritin level of 42 on 01/16 when he had his 1st surgery. Now currently elevated at 220- likely inaccurate in his case given his acute fracture- iron sat is even lower than what it was acouple weeks ago, indicating he has underlying iron deficiency. His folate is low normal at this time. Discussed ways to optimize hemoglobin level. He does have a history of colon cancer. We discussed IV iron and NIK to help avoid any need for blood products if possible. Chronic Thrombocytopenia/hep C cirrhosis- Platelets seems stable at this time. Will add B12 supplementation and folate supplementation- Plan- Feraheme 510 mg x1 B12 supplementation and folate supplementation started Will monitor need for nik - reticulocyte pending Can follow-up with benign Hematology regarding chronic thrombocytopenia-if needed Encourage anemia tolerance when patient is hemodynamically stable and moderate symptoms of anemia -transfusion decision should be based on patient's assessment and not be based on laboratory parameters alone Blood products increase risk of infection, sepsis, hospital length of stay, impaired wound healing,TRIM, TRLI, Ischemic events, bleeding, thrombosis- and more Treatment aimed at control of underlying chronic condition Energy conservation with frequent rest periods Blood conservation is an essential part of blood management so we recommend limiting phlebotomy (especially the use of daily labs) to a as needed for medical decision making only. Can use [employer] messaging anytime during business hours Monday-Monday 8 am to 5 pm. Marsha Flores NP Patient Blood Management/Bloodless Medicine Office [phone] DAGO Medrano 01/29/24 [address] [facility] Work Phone: 1(908) 148-850406-17-2024 History and physical note* Demond Frazier MD - 01/29/2024 10:52 AM EDT [facility] HOSPITALIST HISTORY AND PHYSICAL EXAM Patient's Name: Ruth Smith Age: 53 y.o. Sex: male D.O.B: 1970 Admission Date: 01/29/2024 Admitting Physician: No admitting provider for patient encounter. Primary Care Physician: Jd Du PA-C CHIEF COMPLAINT: Left hip pain. HISTORY OF PRESENT ILLNESS: 53 year old male with history of hypertension, hyperlipidemia, diabetes 2, COPD, hepatitis C cirrhosis, colon cancer status post sigmoid colectomy, fibromyalgia, chronic pain syndrome, recent right intertrochanteric hip fracture, was transfer from [facility] for evaluation of severe pain. Patient was recently discharged to [facility] after right intertrochanteric hip fracture surgery. Two days ago, on Monday, patient failed and landed on his right hip causing worsening pain.Initial hip x-ray at that time was unremarkable without evidence of fracture. However, pain did notimprove and progressively worsen. CT brain hip demonstrated periprosthetic right hip fracture. Therefore, he was transferred to [facility] for surgical intervention. Patient was seen and evaluated by Dr. Potts and plan for surgical repair tomorrow. On physical exam, patient was alert and oriented x3. He was in severe pain. He denies chest pain orshortness a breath. There was no evidence of lower extremity edema. ASSESSMENTS: Acute periprosthetic right hip fracture secondary to mechanical fall. Plan for surgical intervention tomorrow. Recent right intertrochanteric hip fracture. Status post IM nail right intertrochanteric hip fracture on 01/18/[address] Figueroa. Mild hyponatremia. Likely from HCTZ. Primary hypertension. Hyperlipidemia. Diabetes 2. COPD without exacerbation. Hepatitis C cirrhosis. History of colon cancer. Status post sigmoid colectomy. Fibromyalgia. Chronic pain syndrome. Irritable bowel syndrome. Benign prostatic hypertrophy Code status: FULL CODE. PLANS: Patient will be admitted to Internal service. Will start patient on pain management. Orthopedic surgery plan for surgical intervention tomorrow. Patient did not have any angina or heart failure. RCRI score 1 carries 6% risk of cardiac butnon-prohibition. Patient can proceed to surgery without further cardiac workup. Continue Coreg and losartan. Hold HCTZ due to hyponatremia. Add hydralazine p.r.n. for systolic blood pressure greater than 170 mmHg. Resume Lantus and add intermediate intensity sliding scale. Will add Lovenox for DVT prophylaxis. Fall risk precaution. PAST MEDICAL HISTORY: Past Medical History: Diagnosis Date Asthma Back pain Chronic cough from lisinopril Chronic pain disorder Colon cancer ([facility]) COPD (chronic obstructive pulmonary disease) ([facility]) Depression Diabetes mellitus type 2, controlled ([facility]) Fibromyalgia, primary Fracture of right hip, closed, initial encounter ([facility]) 01/17/2024 GERD (gastroesophageal reflux disease) Hyperlipidemia Hypertension Insulin-treated type 2 diabetes mellitus ([facility]) Joint pain Kidney stones Liver disease Low back pain Neck pain Obesity Osteoarthritis Visual impairment PAST SURGICAL HISTORY: Past Surgical History: Procedure Laterality Date BACK SURGERY COLON SURGERY resection, 2018, [facility] DAVINCI REPAIR HERNIA VENTRAL N/A 10/27/2021 Performed by Ridge Cedillo MD at [facility] DENTAL SURGERY pt had all teeth removed HERNIA REPAIR x's 2 INSERTION INTRAMEDULLARY NAIL FEMUR-TFNA HIP FX Right 01/18/2024 Performed by Ang Figueroa MD at [facility] 2007 foot, infected foot PAST TRAVEL HISTORY: Travel Screening Question Response Have you been in contact with someone who was sick? No / Unsure Do you have any of the following new or worsening symptoms? None of these Have you traveled internationally or domestically in the last month? No Travel History Travel since 12/29/23 No documented travel since 12/29/23 HOME MEDICATIONS: (Not in a hospital admission) ALLERGY: Allergies Allergen Reactions Insulin Glargine Nausea And Vomiting and GI Disturbance SOCIAL HISTORY: Social History Socioeconomic History Marital status: Single Tobacco Use Smoking status: Every Day Current packs/day: 0.50 Average packs/day: 0.5 packs/day for 20.0 years (10.0 ttl pk-yrs) Types: Cigarettes Smokeless tobacco: Never Vaping Use Vaping status: Never Used Substance and Sexual Activity Alcohol use: Not Currently Drug use: No Sexual activity: Defer Social Determinants of Health Financial Resource Strain: Low Risk (01/22/2024) Overall Financial Resource Strain (CARDIA) Difficulty of Paying Living Expenses: Not hard at all Food Insecurity: No Food Insecurity (01/29/2024) Hunger Screening Food Insecurity - Worry: Never True Food Insecurity - Inability: Never True Transportation Needs: No Transportation Needs (01/23/2024) PRAPARE - Transportation Lack of Transportation (Medical): No Lack of Transportation (Non-Medical): No Physical Activity: Inactive (01/22/2024) Exercise Vital Sign Days of Exercise per Week: 0 days Minutes of Exercise per Session: 0 min Stress: No Stress Concern Present (01/22/2024) [place] [employer] - Occupational Stress Questionnaire Feeling of Stress : Not at all Social Connections: Socially Isolated (01/22/2024) Social Connection and Isolation Panel [NHANES] Frequency of Communication with Friends and Family: More than three times a week Frequency of Social Gatherings with Friends and Family: More than three times a week Attends [employer] Services: Never Active Member of Clubs or Organizations: No Attends Club or Organization Meetings: Never Marital Status: Interpersonal Safety: Not At Risk (01/22/2024) Humiliation, Afraid, Rape, and Kick questionnaire Fear of Current or Ex-Partner: No Emotionally Abused: No Physically Abused: No Sexually Abused: No Housing Instability: Low Risk (01/22/2024) Housing Instability Housing Instability: No FAMILY HISTORY: Family History Problem Relation Age of Onset Heart disease Father Colon cancer Paternal Aunt Heart disease Maternal Grandmother Heart disease Paternal Grandmother Heart disease Paternal Grandfather REVIEW OF SYSTEMS: 10 system review is negative except for HPI. PHYSICAL EXAM: BP (!) 139/91 Pulse 99 Resp 24 SpO2 97% Physical Exam Cardiovascular: Rate and Rhythm: Normal rate and regular rhythm. Heart sounds: No murmur heard. No friction rub. No gallop. Pulmonary: Effort: Pulmonary effort is normal. Breath sounds: Normal breath sounds. No wheezing. Abdominal: General: Bowel sounds are normal. Palpations: Abdomen is soft. Musculoskeletal: General: No swelling. Comments: Right hip with ecchymosis. No bleeding or erythema noted. Decreased range of motion due to pain. Neurological: Mental Status: He is oriented to person, place, and time. Psychiatric: Mood and Affect: Mood normal. LABS: Recent Results (from the past 72 hour(s)) Bedside Glucose *Place/Obtain serum glucose if >500(>600 MRH) per glucometer. Collection Time: 01/26/24 11:51 AM Result Value Ref Range Bedside glucose 221 (H) 65 - 99 mg/dL Bedside Glucose *Place/Obtain serum glucose if >500(>600 MRH) per glucometer. Collection Time: 01/26/24 2:59 PM Result Value Ref Range Bedside glucose 190 (H) 65 - 99 mg/dL Bedside Glucose *Place/Obtain serum glucose if >500(>600 MRH) per glucometer. Collection Time: 01/26/24 7:39 PM Result Value Ref Range Bedside glucose 267 (H) 65 - 99 mg/dL Bedside Glucose *Place/Obtain serum glucose if >500(>600 MRH) per glucometer. Collection Time: 01/26/24 8:55 PM Result Value Ref Range Bedside glucose 310 (H) 65 - 99 mg/dL Bedside Glucose *Place/Obtain serum glucose if >500(>600 MRH) per glucometer. Collection Time: 01/27/24 6:31 AM Result Value Ref Range Bedside glucose 217 (H) 65 - 99 mg/dL Bedside Glucose *Place/Obtain serum glucose if >500(>600 MRH) per glucometer. Collection Time: 01/27/24 11:42 AM Result Value Ref Range Bedside glucose 225 (H) 65 - 99 mg/dL Bedside Glucose *Place/Obtain serum glucose if >500(>600 MRH) per glucometer. Collection Time: 01/27/24 5:15 PM Result Value Ref Range Bedside glucose 195 (H) 65 - 99 mg/dL CBC auto differential Collection Time: 01/27/24 5:20 PM Result Value Ref Range White Blood Cells 8.6 4.0 - 11.0 X10E9/L RBC count 3.66 (L) 4.10 - 5.70 X10E12/L Hemoglobin 10.5 (L) 13.0 - 17.0 g/dL Hematocrit 30.5 (L) 39 - 49 % MCV 83 80 - 100 fL MCH 28.6 27 - 34 pg MCHC 34.3 32 - 36 g/dL RDW 16.0 (H) 11.5 - 15.0 % Platelets 172 150 - 450 X10E9/L MPV 10.8 7 - 12 fL % neutrophils 72.3 % % lymphocytes 19.8 % % monocytes 7.2 % % eosinophils 0.2 % % Basophils 0.5 % Neutrophils Absolute (A) 6.2 1.5 - 6.6 X10E9/L Lymphocytes Absolute 1.7 1.0 - 3.5 X10E9/L Monocytes Absolute 0.6 0 - 0.9 X10E9/L Eosinophils Absolute 0.0 0.0 - 0.4 X10E9/L Basophils Absolute 0.0 0.0 - 0.2 X10E9/L Bedside Glucose *Place/Obtain serum glucose if >500(>600 MRH) per glucometer. Collection Time: 01/27/24 8:14 PM Result Value Ref Range Bedside glucose 170 (H) 65 - 99 mg/dL Bedside Glucose *Place/Obtain serum glucose if >500(>600 MRH) per glucometer. Collection Time: 01/28/24 6:09 AM Result Value Ref Range Bedside glucose 203 (H) 65 - 99 mg/dL Bedside Glucose *Place/Obtain serum glucose if >500(>600 MRH) per glucometer. Collection Time: 01/28/24 11:50 AM Result Value Ref Range Bedside glucose 244 (H) 65 - 99 mg/dL Bedside Glucose *Place/Obtain serum glucose if >500(>600 MR[facility]) per glucometer. Collection Time: 01/28/24 8:25 PM Result Value Ref Range Bedside glucose 194 (H) 65 - 99 mg/dL Bedside Glucose *Place/Obtain serum glucose if >500(>600 MR[facility]) per glucometer. Collection Time: 01/29/24 5:39 AM Result Value Ref Range Bedside glucose 199 (H) 65 - 99 mg/dL Basic Metabolic Panel Collection Time: 01/29/24 5:40 AM Result Value Ref Range Sodium 131 (L) 134 - 146 mmol/L Potassium, Bld 3.7 3.5 - 5.0 mmol/L Chloride 95 (L) 98 - 109 mmol/L CO2 24 22 - 32 mmol/L Anion gap 12 5 - 15 mmol/L BUN 9 5 - 23 mg/dL Creatinine 0.51 (L) 0.60 - 1.30 mg/dL Glucose 212 (H) 65 - 99 mg/dL Calcium 9.4 8.5 - 10.5 mg/dL eGFR (CKD-EPI)non-race dependent >90 >59 ml/min/1.73sq.m CBC without diff Collection Time: 01/29/24 5:40 AM Result Value Ref Range White Blood Cells 10.2 4.0 - 11.0 X10E9/L RBC count 3.97 (L) 4.10 - 5.70 X10E12/L Hemoglobin 11.4 (L) 13.0 - 17.0 g/dL Hematocrit 33.1 (L) 39 - 49 % MCV 83 80 - 100 fL MCH 28.7 27 - 34 pg MCHC 34.4 32 - 36 g/dL RDW 15.9 (H) 11.5 - 15.0 % Platelets 185 150 - 450 X10E9/L MPV 10.8 7 - 12 fL DIAGNOSTIC STUDIES: CT hip right without contrast Result Date: 01/27/2024 Narrative: CT HIP RT WO CONT Clinical history:Hip replacement, periprosthetic fracture suspected; Fall with increased pain. Recent femur fracture s/p IM nail. Comparison: 01/04. TECHNIQUE: CT right hip performed without contrast with axial coronal and sagittal imaging. 3-D volume rendered surface shaded images were generated and reviewed under concurrent physician supervision for better delineation of the femoral fracture anatomy. Findings: There is a new right proximal femoral intramedullary kateryna transfixing a proximal right femoral intertrochanteric fracture. There is a comminuted fracture of the right greater trochanter as well. There is a linear lucency of the medial distal femoral lyndsey x on axial image #482 likely related to nutrient foramen. There is fracture of the posterior femoral cortex just proximal to the nutrient foramen which appears to be new. Impression: Intramedullary kateryna fixation of the proximal right femur transfixing the proximal right femoral intertrochanteric fracture with fracture of the right greater tuberosity. There is extension of the fracture to involve the posterior femoral cortex along the intramedullary kateryna as above which appears to be new from prior. All CT scans at this facility use dose modulation, iterative reconstruction, and/or weight based dosing when appropriate to reduce radiation dose to as low as reasonably achievable. Finalized by Marc Paredes MD on 01/27/2024 10:58 AM X-ray hip right 2-3 views with or without pelvis Result Date: 01/27/2024 Narrative: History: Fall with right hip pain. Fall just over one week ago with internal fixation ofright intertrochanteric hip fracture 9 days ago. Exam/Technique: AP pelvis with coned-down AP and lateral right hip. Comparison: 01/21/2024 Findings: Internally fixing right hip hardware with no evidence of acute complications. Fracture fragment at the greater tuberosity remains essentially undisplaced. There is no evidence of new recent fractures or other focal bony abnormalities in the pelvic bones or proximal femurs. IMPRESSION: No new acute abnormalities demonstrated Finalized by Caio Porras MD on 01/27/2024 6:44 AM X-ray hip right 2-3 views with or without pelvis Result Date: 01/21/2024 Narrative: XR HIP RT 2-3 VIEWS W OR WO PELVIS Clinical history:increasing pain - recent IMN right hip right hip pain Comparison: 01/18/2024 Impression: Stable postoperative changes and alignment with right proximal femoral intramedullary kateryna. No new or acute process. Finalized byMarc Paredes MD on 01/21/2024 3:06 PM X-ray hip right 2-3 views with or without pelvis Result Date: 01/18/2024 Narrative: XR HIP RT 2-3 VIEWS W OR WO PELVIS INDICATION: Pain FINDINGS: Intraoperative fluoroscopy. No radiologist present during the examination. Reference Air Kerma = 8.63 mGy Fluoroscopy time: 40seconds Saved images: 13 IMPRESSION: Intraoperative fluoroscopy provided as above. See operative report for additional details. Finalized by Nathan Skinner on 01/18/2024 3:43 PM X-ray hip right 2-3 views with or without pelvis Result Date: 01/18/2024 Narrative: XR HIP RT 2-3 VIEWS W PELVIS HISTORY: post op right hip short IMN. COMPARISON: none IMPRESSION: PELVIS: No displaced or pelvic fracture. Degenerative changes sacroiliac joints, symphysis pubis. RIGHT HIP: Right femoral intramedullary nail transfixes nondisplaced intertrochanteric fracture. No hardware complication. Cutaneous esmer. Finalized by Valdo Gonzalez MD on 01/18/2024 3:40 PM X-ray spine lumbar 2 or 3 views Result Date: 01/18/2024 Narrative: HISTORY: A 53-year-old male with the history of the right hip fracture. Complaining of the low back pain. TECHNIQUE: Lumbar spine: AP and lateral views, 2 views COMPARISON: No relevant prior studies are available for comparison. FINDINGS: Vertebral heights are normal. There is no evidence of compression fracture, spondylolysis or spondylolisthesis. There are degenerative changes in thelumbar spine. L2-L3, L4-L5 and L5-S1 disc spaces are reduced. Facet arthropathy seen at L4-L5 and L5-S1. Pedicles are intact. Both sacroiliac joints are unremarkable. There are degenerative changes in the hip joints. Bowel gas pattern is nonobstructive with significant amount of feces. IMPRESSION: * No evidence of compression fracture, spondylolisthesis or acute bony pathology. * Diffuse disc degenerative disease in the lumbar spine with reduction of disc spaces at multiple levels. Facet arthropathy seen at L4-L5 and L5-S1. Finalized by Clifford Jauregui MD on 01/18/2024 8:31 AM X-ray chest 1 view Result Date: 01/17/2024 Narrative: CHEST 1 VIEW HISTORY: Preop COMPARISON: 10/31/2021 FINDINGS: No focal airspace disease, pulmonary edema, pleural effusions, or pneumothorax. Normal cardiomediastinal silhouette. IMPRESSION:No acute cardiopulmonary disease. Finalized by Sylvester Collins MD on 01/17/2024 10:48 PM X-ray femur right 2+ views Result Date: 01/17/2024 Narrative: History: Pain. Fracture. Surgical planning study Study: Right Femur Two view study. Comparison: None Impression: Nondisplaced fracture involving the greater trochanter is appreciated. No distal femoral fracture is seen. Study is hampered by patient positioning. Mineralization appears less than expected and at least osteopenic. Continued follow-up with orthopedics is suggested. Finalized by Donavon Chen MD on 01/17/2024 11:[address] hip right without contrast Result Date: 01/17/2024 Narrative: CT right hip without contrast HISTORY: Fracture COMPARISON: Radiograph earlier same day TECHNIQUE: CT right hip without contrast performed according to standard protocol. FINDINGS: Acute fracture extending from the right greater trochanter through the intertrochanteric region. No displacement. Hip joint intact. No additional fractures. Soft tissue structures are unremarkable. IMPRESSION: * Acute nondisplaced intertrochanteric right hip fracture. All CT scans at this facility use dosemodulation, iterative reconstruction, and/or weight based dosing when appropriate to reduce radiation dose to as low as reasonably achievable. Finalized by Sylvester Collins MD on 01/17/2024 4:37 AM X-ray hip right 2-3 views with or without pelvis Result Date: 01/17/2024 Narrative: XR HIP RT 2-3 VIEWS W OR WO PELVIS HISTORY: Hip pain, fall, injury COMPARISON: None FINDINGS: AP and lateral views of the right hip with an AP pelvis view obtained. Acute, nondisplaced fracture involving the right greater trochanter. There is no destructive osseous lesion. The joint space is well maintained without degenerative changes. The osseous structures are well mineralized. IMPRESSION: * Acute, nondisplaced fracture involving the right greater trochanter. Extension through theintertrochanteric region not fully excluded on these images. Approved by Resident: Singh Cervantes DO on 01/17/2024 3:49 AM ISylvester MD have personally reviewed the image(s) and agree with and/or edited the report Finalized by Sylvester Collins MD on 01/17/2024 3:54 AM X-ray knee right 1 or 2 views Result Date: 01/17/2024 Narrative: 2 VIEWS RIGHT KNEE HISTORY: Fall, pain COMPARISON: None FINDINGS: Chondrocalcinosis. No acute fracture. No dislocation. IMPRESSION: No acute osseous abnormalities in the right knee. Finalized by Sylvester Collins MD on 01/17/2024 3:49 AM Electronically signed by: Demond Frazier MD This note was created with the assistance of a speech-recognition program. Although the intention is to generate a document that actually reflects the content of the visit, no guarantees can be provided that every mistake has been identified and corrected by editing. [facility] Work Phone: [phone]) 291-244506-17-2024 Emergency department Triage note* Scarlett Yang RN - 01/29/2024 10:35 AM EDT Pt arrives to ED from Dr. Figueroa's office. Pt had a right hip replacement per Dr. Figueroa on 01/17 and hasbeen recovering at inpatient rehab at [facility] since then. Pt had a fall on 01/26 and imaging confirmed that he had a new right femur fx around the recently placed kateryna. Pt was seen for the first time this morning by Dr. Figueroa who wanted pt sent to [facility] ER for admission to go to OR and have surgery. Ptis alert and oriented during triage appearing to be in severe pain after movement to stretcher. [facility] [place]06-17-2024 Emergency department Note* Scarlett Yang RN - 01/29/2024 10:35 AM EDT Pt arrives to ED from Dr. Figueroa's office. Pt had a right hip replacement per Dr. Figueroa on 01/17 and hasbeen recovering at inpatient rehab at [facility] since then. Pt had a fall on 01/26 and imaging confirmed that he had a new right femur fx around the recently placed kateryna. Pt was seen for the first time this morning by Dr. Figueroa who wanted pt sent to [facility] ER for admission to go to OR and have surgery. Ptis alert and oriented during triage appearing to be in severe pain after movement to stretcher. * Zuly Liu RN - 01/29/2024 10:26 AM EDT Bed: 16 Expected date: Expected time: Means of arrival: Comments: Dr. Figueroa office call ahead Ruth Gray Fell post of hip fracture - broke around nail from recent hip fracture -needs admitted to hospitalist - OR tomorrow [facility] [place] Emergency [facility] Note* Zuly Liu RN - 01/29/2024 10:26 AM EDT Bed: 16 Expected date: Expected time: Means of arrival: Comments: Dr. Figueroa office call ahead Ruth Gray Fell post of hip fracture - broke around nail from recent hip fracture -needs admitted to hospitalist - OR tomorrow [facility] [place]06-17-2024 History of Present illness Narrative* Jalen Gan MD - 01/29/2024 9:00 AM EDT INTERVAL Hx: Ruth Smith is a 53 y.o. male presents 01/29/2024 for follow-up of his right hip intertrochanteric femur fracture treated with short cephalomedullary nail 01/18/2024 Patient was doing well postoperatively but over the weekend he was going to the bathroom when he had a fall onto his right hip. Since that time he had significantly increased pain swelling and inability to ambulate. Imaging at the time demonstrated a new fracture of his right proximal humerus around his short intramedullary nail implant. He was made nonweightbearing in his now following up in clinic. He is on Lovenox for DVT prophylaxis. PMHx, PSHx, FamHx: were reviewed during this visit. Social History Occupational History Not on file Tobacco Use Smoking status: Every Day Current packs/day: 0.50 Average packs/day: 0.5 packs/day for 20.0 years (10.0 ttl pk-yrs) Types: Cigarettes Smokeless tobacco: Never Vaping Use Vaping status: Never Used Substance and Sexual Activity Alcohol use: Not Currently Drug use: No Sexual activity: Defer MEDS & ALLERGIES: were reviewed at during this visit. ROS: Negative for Fever/Chills, Numbness/Tingling, Skin changes. PHYSICAL EXAM: Vitals: There were no vitals taken for this visit. General: Well-nourished, Well-developed and Age appropriate LOC: awake and alert Orientation: oriented to person, place, time, and recent events Psych: Pleasant and Cooperative Station: Lying supine on stretcher Musculoskeletal: Right lower extremity: Incisions are clean dry intact He has significant swelling in ecchymosis about his right hip Range of motion deferred EHL, FHL, plantar flexion, dorsiflexion ankle is intact He is decreased sensation circumferentially to the level of the knee He is pain with logroll. IMAGING: I personally viewed X-ray images of right hip, which demonstrate: right intertrochanteric femur fracture with short cephalomedullary nail with new fracture above the greater and lesser trochdown to the level of the transverse interlocking screw. Will review and confirm findings with the radiologist report when available. DIAGNOSIS: Closed displaced intertrochanteric fracture of right femur, sequela Closed displaced subtrochanteric fracture of right femur, initial encounter ([facility] PLAN: Nonweightbearing to the right lower extremity We will send the patient to the emergency department to be admitted by the medicine team. He will need medical clearance. Pain control, ice Plan for removal of right hip shortness inflammation nail and revision open reduction internal fixation of right proximal femur with long cephalomedullary nail Hold Lovenox for surgery NPO midnight Jalen Gan MD Resident Attestation: The patient was seen and discussed with preceptor Dr. Figueroa * Ang Figueroa MD - 01/29/2024 9:00 AM EDT Attending Attestation: I saw the patient. I performed the critical/sharma portions of the service. I was directly involved inthe management and treatment plan of the patient. I reviewed the resident's note. Additional Notes/Findings: Returns in follow up today. He had a short nail done about 2 weeks ago and returns in follow-up after a fall at the facility. X-rays and CT scan of his right hip identify a periprosthetic proximal femur fracture involving the greater trochanter and posterior femoral cortex down to the distal interlocking screw in the subtrochanteric area. The patient attempted to maintain at the facility over the weekend but it has just been in a significant amount of pain. We discussed operative and nonoperative management of this injury. He has beenessentially trialing nonsurgical management of this periprosthetic fracture over the weekend and that is failing. He is having trouble maintaining his weight-bearing status, he has not mobilizing very well. He was doing much better prior to this new fall. His x-rays are stable today from the clinicbut the CT scan shows extension down to the distal interlocking screw thus I am concerned that there has not the amount of stability needed for this fracture to heal well and increases his risk of fra nk failure of the fixation. I discussed today with the patient and his . The mutual decision was made to proceed with revision ORIF to remove this short nail, plus or minus cable the fracture and then insert a longer nail. His hemoglobin is 11. At this point I think he is uncomfortable enough which is send him down to the emergency departmentto get him admitted, optimized from the medical team and plan nonsurgical revision tomorrow. Discussed this all with the family and him. All questions were addressed. We reviewed the standard risks benefits alternatives surgical nonsurgical management. All questions were addressed. LEVEL OF SERVICE: Ortho MDM Diagnosis Complexity -: [4] MODERATE: 1 acute, complicated injury Ortho Data Level: [5] Ortho Data Moderate/Extensive Level category 1 (need 3): review of external notes, review of results, and order unique tests Ortho Data Extensive Level Category 2: Independent Test Interpretation Ortho Tx/Test Risk Level (highest): [5] Ortho High Risk Options: Major Surgery (elective) (90d Global): WITH RISKS LEVEL OF MDM -: [5] HIGH level based on above criteria. Ang Figueroa MD. documented [facility] [place] Miscellaneous Notes* Discharge Planning Note - Mendoza Pritchett - 01/22/2024 4:03 PM EDT DISCHARGE PLANNING NOTE CRF sent to [facility] * Discharge Planning Note - JEWEL Crenshaw - 01/22/2024 3:40 PM EDT Images from the original note were not included. DISCHARGE PLANNING NOTE DC plan will be IPR: [facility] rehab has accepted pt. Pt is agreeable to [facility]. No auth needed. Pt will discharge today. Transport arranged for 5pm. Patient, RN, facility all aware. CRF sent. W/C tx cert in dc packet Services Requested: Services Requested Discharge Disposition: Acute rehab [facility] Does the patient need discharge transportation arranged?: Yes Patient choice offered: Yes List Provided: Yes [facility] List Provided: Long-Term Facility Initial DC Assessment Completed: Yes Patient Goals: Goals: Goals <enter goal here> (pt-stated) Evaluation of progress towards goal: possible rehab placement vs home pending progress, recommendations and pt decision - JEWEL Crenshaw 01/22/24 3:44 PM * Discharge Planning Note - Cata Maravilla - 01/22/2024 3:00 PM EDT DISCHARGE PLANNING NOTE Confirmed WC from PTN via [employer] for 5:00pm 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 rehab does not currently have a bed available. GABRIEL discussed with pt and reviewed other IPR options. Pt is agreeable to [facility] rehab. Referral sent, await acceptance. - JEWEL Crenshaw 01/22/24 2:01 PM * Plan of Care - Miranda Dudley RN - 01/22/2024 12:56 PM EDT Problem: Pain Goal: Patient goal is pain score less than 4, able to rest, and participant in treatment plan as appropriate Description: INTERVENTIONS: 1. Encourage patient or legal charter representative to report early pain and ask for pain medicine when needed 2. Assess pain using appropriate pain scale and include the scale used when documenting 3. Administer analgesics based on type and severity of pain and evaluate response within appropriate time frame 4. Implement non-pharmacological measures as appropriate and evaluate response 5. Consider cultural and social influences on pain and pain management 6. Notify LIP if interventions ineffective or patient reports new pain 7. Monitor vital signs including pulse ox 8. Reassess pain per policy 9. Teach patient or legal charter representative interventions for comforting Outcome: Adequate for Discharge Note: Evaluation of progress towards goal: patient FLACC rate is 0/10, 1 hour after oral pain medication given during shift, patient vital signs and pain are assessed and charted frequently, will continue to monitor during shift Problem: Safety Goal: Patient will be injury free during hospitalization Description: INTERVENTIONS: 1. Assess patient's risk for falls and implement fall prevention plan of care per policy 2. Provide and maintain a safe environment 3. Proper use of double Identifiers 4. Medication administration using the 5 rights 5. Hand hygiene 6. Specimens are labeled at the bedside 7. Instruct patient/ patient charter representative about use of safety devices 8. Include patient/ patient charter representative in decisions related to safety Outcome: Adequate for Discharge Note: Evaluation of progress towards goal: Patient safety maintained during shift with use of 5 rights, patient and staff using hygiene, patient environment free of harm and debrie. Will continue to monitor during shift. Problem: Infection Goal: Absence of infection during hospitalization Description: Interventions: 1. Assess and monitor for signs and symptoms of infection 2. Monitor lab/diagnostic results 3. Monitor all insertion sites i.e., indwelling lines, tubes and drains 4. Monitor endotracheal (as able) and nasal secretions for changes in amount and color 5. Administer medications as ordered 6. Instruct and encourage patient and family to use good hand hygiene technique 7. Identify and instruct patient/patient charter representative in use of appropriate isolation precautionsfor identified infection/symptoms 8. Provide and discuss with patient/patient charter representative on educational MDRO sheet 9. Encourage and monitor nutritional status daily and consult maxillofacial pathology if indicated 10. Implement neutropenic guidelines as needed 11. Review exposure to history of communicable disease and recent travel history on admission 12. Encourage annual influenza vaccine 13. Encourage pneumonia vaccine Outcome: Adequate for Discharge Note: Evaluation of progress towards goal: patient assessed for signs and symptoms of infection, Patients labs monitored during shift, Patient encouraged and demonstrates hand hygiene, all lines are assessed and charted, Will continue to monitor during shift for any changes. Problem: Knowledge Deficit Goal: Patient/patient charter representative demonstrates understanding of disease process, treatment plan,medications, and discharge instructions Description: INTERVENTIONS 1. Complete learning assessment and assess knowledge base 2. Provide teaching at level of understanding 3. Provide teaching via preferred learning method(s) Outcome: Progressing Note: Evaluation of progress towards goal: Patient updated on POC he verbalizes understanding and voices no concerns at this time. Will continue to update and assess patient throughout shift for needs. Problem: Moderate - High Risk Fall Score Description: Arredondo Fall Score of =/> 25 or indicated by [facility] Assessment Goal: Patient should be free from fall Description: Interventions: 1. [place] to environment 2. Hourly rounds addressing the 4 P's (Pain, Positioning, Possessions, Potty) 3. Clear area of hazards (spills, clutter, electrical cords, unnecessary equipment) 4. Place equipment (bed & TV controls, call light, phone, urinal) within reach 5. Encourage patient to wear glasses and hearing aides as appropriate 6. Maintain bed in lowest position 7. Lock wheels on bed/wheelchair 8. Provide adequate lighting, including night light 9. Assess need for additional bedding, food/fluids, pain med's prior to sleep/routinely 10. Provide gripper slippers or personal non-skid footwear 11. Teach patient and patient charter representative to maintain environment for safety and engage in all aspects of fall prevention program 12. Remind patient to call for help before getting out of bed 13. Initiate bed/chair/exit alarms supportive devices as appropriate, (chair wedge, no-skid floor mat, raised edge mattress, hip protectors) 14. Locate patient bed assignment for optimal visualization 15. Evaluate and identify Safe Patient Handling Equipment needs 16. Provide supervision when out of bed or chair 17. Utilize gait belt as needed to assist with ambulation 18. Place adaptive equipment (cane, walker) within reach 19. Request patient charter representative bring adaptive equipment/mobility aids from home or obtain and provide as needed 20. Consult pharmacy regarding effects of med's affecting mobility, cognition, and alternatives 21. Obtain physician order for PT if risk factors associated with mobility are present 22. Obtain physician order for OT as appropriate 23. Utilize diversional activities 24. Educate patient and patient charter representative how to maintain a safe environment during visitationtimes (notify nurse prior to leaving bedside) 25. Consider appropriateness of medical or non-medical librarian 26. Set up voiding schedule as appropriate (every 2 hours) Outcome: Progressing Note: Evaluation of progress towards goal: Patient remains free from falls during shift, patient transfers with walker steady gait, 20 feet, patient continues to collaborate with PT/OT for therapy needs. patients room is free of clutter and debrie, patients bed remains locked and in lowest position, hourly rounding continues, patient uses call light to notify staff of needs, appropriate safe patient handling used during shift. Will continue to monitor during shift. ;; * Discharge Planning Note - JEWEL Crenshaw - 01/22/2024 11:17 AM EDT DISCHARGE PLANNING NOTE DC plan now will be IP rehab, SW notified that pt is now requesting to go to IP rehab, pt does not feel like he is ready to go home yet. SW discussed IP rehab with pt and pt is now agreeable. SW reviewed IPR options with pt and pt would like to try [facility] IP rehab. Referral sent. Awaiting acceptance. W/C tx cert in dc packet. - JEWEL Crenshaw 01/22/24 11:19 AM * Discharge Planning Note - Jackie Caal - 01/22/2024 11:13 AM EDT DISCHARGE PLANNING NOTE Referral to [facility] in [place] (P# ; F# ) * PT/OT/THERMAL SURFACING MACHINE OPERATOR - ALICIA Banda - 01/22/2024 8:31 AM EDT Occupational Therapy Treatment Discharge Recommendations OT Recommendations : Inpatient Rehab 6 Clicks: Daily Activity Putting on and taking off regular lower body clothing?: A lot Bathing (including washing, rinsing, drying)?: A lot Toileting, which includes using toilet, bedpan or urinal?: A lot Putting on and taking off regular upper body clothing?: A little Taking care of personal grooming such as brushing teeth?: A little Eating meals?: None Scoring Daily Activity Raw Score: 16 CMS G Code Modifier: CK OT Treatment/Interventions: Functional transfer training, UE strengthening/ROM, Endurance training,Patient/family training, Equipment eval/education, Balance, Compensatory technique education, Functional activities, Bed mobility OT Frequency: 6-7days/week OT Duration: Until discharge Assessment Patient Assessment Therapy Problem List: Decreased ADL status, Decreased balance, Decreased endurance, Decreased high-level ADLs, Decreased mobility, Decreased safe judgement during ADL, Decreased self-care trans, Decreased LE strength, Decreased UE strength Patient Response to Treatment: Slow progress, decreased activity tolerance Mood/Affect: Appropriate for circumstances Rehab Prognosis: Good, With continued OT status post acute discharge Visit RN Communication: Yes Medical Record Reviewed: Yes OT Type of Visit: Treatment Precautions Activity: early mobility: pass; ok to see per RN Equipment: gait belt, RW Weight Bearing Status: WBAT RLE Telemetry/Paper Machine Back Tender: No Oxygen Used: room air Other: fall risk Pain Assessment Pain Assessment: 0-10 Pain Score: 7 Pain Type: Surgical pain Pain Location: Hip, Knee Pain Orientation: Right Pain Intervention(s): Repositioned, Ambulation/increased activity Response to Interventions: Pain unchanged, Quiet ADL / IADL Hand Dominance: Right Where Assessed: Edge of bed, At toilet, Standing at sink Grooming Assistance: Standby assist Toilet/Commode Assistance: Mod assist LE Dressing Assistance: Mod assist Footwear Assistance: Mod assist Other: Pt sat at EOB and was able to exchange L sock. Single Stayer Operator assisted with R foot. Pt then donned shorts with assist to thread the RLE and pt able to thread LLE. When standing, pt able to pull them up with some assist. Pt then amb to toilet and completed toileting with mod assist for toilet transfer and pericare and managing shorts. Pt then stood at sink to wash hands with SBA for safety. Increased time and effort for all ADLs this date. Home Management - IADL Other: Pt sat at EOB and was able to exchange L sock. Single Stayer Operator assisted with R foot. Pt then donned shorts with assist to thread the RLE and pt able to thread LLE. When standing, pt able to pull them up with some assist. Pt then amb to toilet and completed toileting with mod assist for toilet transfer and pericare and managing shorts. Pt then stood at sink to wash hands with SBA for safety. Increased time and effort for all ADLs this date. Hearing / Speech / Vision Hearing: Within Functional Limits Speech: Within Functional Limits Current Vision: No visual deficits Cognition Overall Cognitive Status: Exceptions to Within Functional Limits Attention Span: Attends with cues to redirect Orientation Level: Oriented X4 Following Commands: Follows one step commands with increased time, Follows one step commands with repetition Safety Judgment: Decreased awareness of need for safety Awareness of Errors: Assistance required to identify errors made Bed Mobility Supine to Sit: Mod assist (x2) Sit to Supine: Unable to assess (pt up in chair at end of session with call light in reach and all needs met. RN aware. Chair alarm on.) Other: pt completed sup to sit from flat bed with mod x2 assist for RLE and trunk elevation. Pt demod increased difficulty with bed mobility and required increased time and effort to achieve upright sitting position at EOB. Cues for breathing as pt has strong tendency to hold his breath throughout any exertion/ movement. Transfers Sit to Stand: Min assist (x2) Stand to Sit: Min assist (x2) Toilet Transfers: Mod assist (x2) Other: Pt completed STS from EOB with bed height slightly elevated and min x2 assist for safety. Use of momemtum to achieve standing. Cues for hand placement and RLE placement during transfers. Pt required increased assist of mod x2 from toilet due to low height. All completed with RW. INcreased time/ effort. Gait Gait Assistance: Min assist Assistive Device: Rolling walker Gait Distance: 15 ft x 2 functional distance Limiting Factors to Gait: Fatigue, Weakness, Pain Other: pt completedf functional mobility to and from bathroom with min assist for safety. pt moves very slowly and cautiously. Pt c/o increasing R knee pain throughout mobility. slightly unsteady without overt LOB. Balance Sitting Balance: Static: Good Sitting Balance: Dynamic: Fair (+) Standing Balance: Static: Fair Standing Balance: Dynamic: Fair Other: BUE support on RW during standing balance. Activity Tolerance Endurance: Tolerates >30 minutes activity with rest breaks Other: rest breaks throughout. pt c/o increasing R knee pain during all activity today. Limited by fatigue, weakness, and pain. Plan Occupational Therapy Care Plan Occupational Therapy Care Plan (Active) Template: OT - Occupational Therapy Problem: Activity Tolerance Dates: Start: 01/19/24 Disciplines: OT Goal: Tolerate > 30 minutes of activity WITHOUT rest breaks Dates: Start: 01/19/24 Expected End: 02/09/24 Description: Goal Description: Disciplines: OT Outcomes Date/Time User Outcome 01/22/24 1054 Ludy Ireland, OTR/L Progressing 01/21/24 1650 Ludy Vogt, SERVIN/L Progressing 01/21/24 1053 Ludy Vogt, SERVIN/L Progressing 01/20/24 1610 Katlin Goins, SERVIN/L Progressing 01/20/24 0945 Katlin Goins, SERVIN/L Progressing 01/19/24 1531 Nano Maher SERVIN/L Progressing Goal Note filed on 01/22/24 1054 by Ludy Ireland OTR/Lanie Evaluation of progress towards goal: Problem: Bed Mobility Dates: Start: 01/19/24 Disciplines: OT Goal: Patient will perform bed mobility with Modified [place] Dates: Start: 01/19/24 Expected End: 02/09/24 Description: Goal Description: Disciplines: OT Outcomes Date/Time User Outcome 01/22/24 1054 Ludy Ireland OTR/L Progressing 01/21/24 1053 Ludy Vogt, SERVIN/L Progressing 01/20/24 1610 Katlin Goins, SERVIN/L Progressing 01/20/24 0945 Katlin Goins, SERVIN/L Progressing 01/19/24 1531 Nano Maher SERVIN/L Progressing Goal Note filed on 01/22/24 1054 by Ludy Ireland OTR/Lanie Evaluation of progress towards goal: Problem: Functional Mobility Dates: Start: 01/19/24 Disciplines: OT Goal: Patient will perform functional mobility with Modified [place] Dates: Start: 01/19/24 Expected End: 02/09/24 Description: Goal Description: Disciplines: OT Outcomes Date/Time User Outcome 01/22/24 1054 Ludy Ireland OTR/L Progressing 01/21/24 1650 Ludy Vogt, SERVIN/L Progressing 01/21/24 1053 Ludy Vogt, SERVIN/L Progressing 01/20/24 1610 Katlin Goins, SERVIN/L Progressing 01/20/24 0945 Katlin Goins, SERVIN/L Progressing 01/19/24 1531 CHARU HernandezA/L Progressing Goal Note filed on 01/22/24 1054 by WILLARD Banda/Lanie Evaluation of progress towards goal: Problem: Other (Customize) Dates: Start: 01/19/24 Disciplines: OT Goal: Improve Dates: Start: 01/19/24 Expected End: 02/09/24 Description: Goal Description: Complete ADLs [place] with AE/DME Disciplines: OT Outcomes Date/Time User Outcome 01/22/24 1054 Ludy Ireland OTR/L Progressing 01/21/24 1053 Ludy Vogt SERVIN/L Not Progressing 01/20/24 0945 Katlin Goins SERVIN/L Progressing Goal Note filed on 01/22/24 1054 by WILLARD Banda/Lanie Evaluation of progress towards goal: Problem: Sitting Balance Dates: Start: 01/19/24 Disciplines: OT Goal: Improve balance to good Dates: Start: 01/19/24 Expected End: 02/09/24 Description: Static Dynamic Disciplines: OT Outcomes Date/Time User Outcome 01/22/24 1054 Ludy Ireland OTR/L Progressing 01/21/24 1650 Ludy Vogt, SERVIN/L Progressing 01/21/24 1053 Ludy Vogt, SERVIN/L Progressing 01/20/24 1610 Katlin Goins, SERVIN/L Progressing 01/20/24 0945 Katlin Goins, SERVIN/L Progressing 01/19/24 1531 Nano Maher SERVIN/L Progressing Goal Note filed on 01/22/24 1054 by WILLARD Banda/Lanie Evaluation of progress towards goal: Problem: Standing Balance Dates: Start: 01/19/24 Disciplines: OT Goal: Improve balance to good Dates: Start: 01/19/24 Expected End: 02/09/24 Description: Static Dynamic Disciplines: OT Outcomes Date/Time User Outcome 01/22/24 1054 Ludy Ireland OTR/L Progressing 01/21/24 1650 Ludy Vogt, SERVIN/L Progressing 01/21/24 1053 Ludy Vogt, SERVIN/L Progressing 01/20/24 1610 Katlin Goins, SERVIN/L Progressing 01/20/24 0945 Katlin Goins, SERVIN/L Progressing 01/19/24 1531 Nano Maher, SERVIN/L Progressing Goal Note filed on 01/22/24 1054 by WILLARD Banda/Lanie Evaluation of progress towards goal: Problem: Strength Dates: Start: 01/19/24 Disciplines: OT Goal: Improve strength Dates: Start: 01/19/24 Expected End: 02/09/24 Description: Of extremity/ location: Tolerate bilat UE exercises to increase strength and endurancefor self care tasks. To facilitate: Disciplines: OT Outcomes Date/Time User Outcome 01/22/24 1054 Ludy Ireland OTR/Lanie Progressing 01/21/24 1650 Ludy Vogt SERVIN/L Progressing 01/21/24 1053 Ludy Vogt, SERVIN/L Progressing 01/19/24 1531 Nano Maher, SERVIN/L Progressing Goal Note filed on 01/22/24 1054 by WILLARD Banda/Lanie Evaluation of progress towards goal: Problem: Transfers Dates: Start: 01/19/24 Disciplines: OT Goal: Patient will perform transfers with Modified [place] Dates: Start: 01/19/24 Expected End: 02/09/24 Description: Goal Description: Disciplines: OT Outcomes Date/Time User Outcome 01/22/24 1054 Ludy Ireland OTR/Lanie Progressing 01/21/24 1650 Ludy Vogt, SERVIN/L Progressing 01/21/24 1053 Ludy Vogt, SERVIN/L Not Progressing 01/20/24 1610 Katlin Goins, SERVIN/L Progressing 01/20/24 0945 Katlin Goins, SERVIN/L Progressing 01/19/24 1531 Nano Maher, SERVIN/L Progressing Goal Note filed on 01/22/24 1054 by WILLARD Banda/Lanie Evaluation of progress towards goal: Occupational Therapy Care Plan (Resolved) There are no resolved problems. 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 w/c or bedside chair)?: A lot To walk in hospital room?: A little Climbing 3-5 steps with a railing?: Total Scoring 6 Clicks: Basic Mobility Raw Score: 14 CMS G Code Modifier: CK Therapy Plan PT Treatment/Interventions: Functional transfer training, LE strengthening/ROM, Endurance training,Patient/family training, Equipment eval/education, Balance, Bed mobility, Gait training, Functionalactivities PT Frequency: Other (comment) (daily) PT Duration: LOS Patient Response to Treatment: Progressing toward goals Assessment Patient Assessment Therapy Problem List: Decreased ADL status, Decreased balance, Decreased endurance, Decreased mobility, Decreased safe judgement during ADL, Decreased self-care trans, Decreased UE ROM, Decreased UE strength Patient Response to Treatment: Progressing toward goals Mood/Affect: Appropriate for circumstances Rehab Prognosis: Good, With continued PT status post acute discharge Visit RN Communication: Yes Medical Record Reviewed: Yes PT Type of Visit: Treatment Precautions Activity: ok to tx per RN Equipment: gait belt, RW Weight Bearing Status: WBAT R LE Telemetry/Paper Machine Back Tender: No Oxygen Used: room air Other: fall risk Pain Assessment Pain Assessment: 0-10 Pain Score: 7 Pain Type: Surgical pain Pain Location: Hip, Knee Pain Orientation: Right Pain Intervention(s): Repositioned, Ambulation/increased activity Response to Interventions: Pain unchanged, Quiet, No grimacing Hearing / Speech / Vision Hearing: Within Functional Limits Speech: Within Functional Limits Current Vision: No visual deficits Cognition Attention Span: Attends with cues to redirect Orientation Level: Oriented X4 Following Commands: Follows one step commands with increased time, Follows one step commands with repetition Bed Mobility Supine to Sit: Mod assist (x2) Other: Pt completed bed mobility with MOD a x2 for trunk and BLE support. Pt attempted from flat HOB and no use of railing Increased time and effort to complete. Pt used gait belt as leg repairer controller tester to assist RLE OOB. Pt tends to hold his breath with transitions and displays difficulty foloring direction for breathing technique from com writer. Pt reporting dizziness intially upon sitting EOB. Verbal and tactile cueing provided to improve technique and sequencing with fair return. Pt sitting in reclinerat end of tx session with call light in reach, all needs met, BLEs elevated, ice applied to R hip and knee, chair alarm on, RN aware. Transfers Sit to Stand: Min assist (x2) Stand to Sit: Min assist (x2) Toilet Transfers: Mod assist (x2) Other: Pt completed several transfers this AM with MIN A for safety and slgihtly elevated bed height. Education provided on breathing technique to reduce valsalva, kicking RLE out to reduce pain/pressure through R hip and knee, and use of momentum to aid in transfer. Pt required increased assit fortoielt transfer this AM d/t reports of R knee pain. Heavy L lateral trunk lean noted during sit>stand transition from toilet. Gait Base of Support: Within Functional Limits Pattern: Decreased jesusita, Antalgic gait, R Decreased heel strike, L Decreased heel strike, R Decreased foot clearance, L Decreased foot clearance, Forward trunk, R Decreased stance time, R Flexed knee (dec step length/height) Gait Assistance: Min assist Assistive Device: Rolling walker Gait Distance: 15', 3', 12' Limiting Factors to Gait: Fatigue, Weakness, Pain (pt c/o R knee pain) Other: Pt completed ambulation within room and bathroom this AM with MIN A for safety and use of RWfor BUE support. Increased time to complete d/t slow, cautious, and guarded pattern. Pt reports incR knee pain following toilet transfer limiting ability to ambulate further distance. Antalgic gait pattern noted. Education provided on R TKE during SLS to reduce buckling andheel>toe gait pattern. Balance Sitting Balance: Static: Good Sitting Balance: Dynamic: Fair (+) Standing Balance: Static: Fair Standing Balance: Dynamic: Fair Other: Pt required BUE support in standing for stability, however was able to assist with LB dressing with single UE support. Unsteadiness present with ambulation, however no overt LOB this AM. Pt sat unsupported at EOB for several ADL tasks without LOB, difficulty noted with stooping to reach RLE. Activity Tolerance Endurance: Tolerates >30 minutes activity with rest breaks Other: Intermittent rest breaks required. Pt is primarily limtied by pain this AM Plan Physical Therapy Care Plan Physical Therapy Care Plan (Active) Template: PT - Physical Therapy Problem: Activity Tolerance Dates: Start: 01/19/24 Disciplines: PT Goal: Tolerate > 30 minutes of activity WITH rest breaks Dates: Start: 01/19/24 Expected End: 02/02/24 Description: Goal Description: Disciplines: PT Outcomes Date/Time User Outcome 01/22/24 1051 Shahrzad Garcias, LIVE IN HOUSEKEEPER Progressing 01/21/24 1741 Shahrzad Garcias, LIVE IN HOUSEKEEPER Progressing 01/21/24 1309 Shahrzad Garcias, LIVE IN HOUSEKEEPER Progressing 01/20/24 1607 Shahrzad Garcias, LIVE IN HOUSEKEEPER Progressing 01/20/24 1036 Shahrzad Garcias, LIVE IN HOUSEKEEPER Progressing 01/19/24 1721 Shahrzad Garcias PTA Progressing Goal Note filed on 01/22/24 1051 by Shahrzad Garcias PTA Evaluation of progress towards goal: Problem: Bed Mobility Dates: Start: 01/19/24 Disciplines: PT Goal: Patient will perform bed mobility with Minimum Assist Dates: Start: 01/19/24 Expected End: 02/02/24 Description: Goal Description: Disciplines: PT Outcomes Date/Time User Outcome 01/22/24 1051 Shahrzad Garcias, LIVE IN HOUSEKEEPER Progressing 01/21/24 1741 Shahrzad Garcias, LIVE IN HOUSEKEEPER Progressing 01/21/24 1309 Shahrzad Garcias, LIVE IN HOUSEKEEPER Progressing 01/20/24 1607 Shahrzad Garcias, LIVE IN HOUSEKEEPER Progressing 01/20/24 1036 Shahrzad Garcias, LIVE IN HOUSEKEEPER Progressing 01/19/24 1721 Shahrzad Garcias PTA Progressing Goal Note filed on 01/22/24 1051 by Shahrzad Garcias PTA Evaluation of progress towards goal: Problem: Gait Dates: Start: 01/19/24 Disciplines: PT Goal: Patient will perform gait with Contact Guard Dates: Start: 01/19/24 Expected End: 02/02/24 Description: With_rw___,__150__feet Goal Description: Disciplines: PT Outcomes Date/Time User Outcome 01/22/24 1051 Shahrzad Garcias, LIVE IN HOUSEKEEPER Progressing 01/21/24 1741 Shahrzad Garcias, LIVE IN HOUSEKEEPER Progressing 01/21/24 1309 Shahrzad Garcias, LIVE IN HOUSEKEEPER Progressing 01/20/24 1607 Shahrzad Garcias, LIVE IN HOUSEKEEPER Progressing 01/20/24 1036 Shahrzad Garcias, LIVE IN HOUSEKEEPER Progressing 01/19/24 1721 Shahrzad Garcias, LIVE IN HOUSEKEEPER Progressing Goal Note filed on 01/22/24 1051 by Shahrzad Garcias PTA Evaluation of progress towards goal: Problem: Standing Balance Dates: Start: 01/19/24 Disciplines: PT Goal: Improve balance to good Dates: Start: 01/19/24 Expected End: 02/02/24 Description: Static Dynamic- good (-) with support of rw Disciplines: PT Outcomes Date/Time User Outcome 01/22/24 1051 Shahrzad Garcias, LIVE IN HOUSEKEEPER Progressing 01/21/24 1741 Shahrzad Garcias, SHERYL Progressing 01/21/24 1309 Shahrzad Garcias, LIVE IN HOUSEKEEPER Not Progressing 01/20/24 1036 Shahrzad Garcias, LIVE IN HOUSEKEEPER Progressing 01/19/24 1721 Shahrzad Garcias PTA Progressing Goal Note filed on 01/22/24 1051 by Shahrzad Garcias PTA Evaluation of progress towards goal: Problem: Strength Dates: Start: 01/19/24 Disciplines: PT Goal: Improve strength Dates: Start: 01/19/24 Expected End: 02/02/24 Description: Of extremity/ location:Complete 20 reps bilat UE/LE ex's To facilitate: Disciplines: PT Outcomes Date/Time User Outcome 01/22/24 1051 Shahrzad Garcias, LIVE IN HOUSEKEEPER Progressing 01/21/24 1741 Shahrzad Garcias, LIVE IN HOUSEKEEPER Progressing 01/21/24 1309 Shahrzad Garcias, LIVE IN HOUSEKEEPER Progressing 01/20/24 1607 Shahrzad Garcias, LIVE IN HOUSEKEEPER Progressing 01/20/24 1036 Shahrzad Garcias, LIVE IN HOUSEKEEPER Progressing 01/19/24 1721 Shahrzad Garcias LIVE IN HOUSEKEEPER Progressing Goal Note filed on 01/22/24 1051 by Shahrzad Garcias PTA Evaluation of progress towards goal: Problem: Transfers Dates: Start: 01/19/24 Disciplines: PT Goal: Patient will perform transfers with Contact Guard Dates: Start: 01/19/24 Expected End: 02/02/24 Description: Goal Description: Disciplines: PT Outcomes Date/Time User Outcome 01/22/24 1051 Shahrzad Garcias PTA Progressing 01/21/24 1741 Shahrzad Garcias PTA Progressing 01/21/24 1309 Shahrzad Garcias PTA Not Progressing 01/20/24 1607 Shahrzad Garcias PTA Progressing 01/20/24 1036 Shahrzad Garcias PTA Progressing 01/19/24 1721 Shahrzad Garcias PTA Progressing Goal Note filed on 01/22/24 1051 by Shahrzad Garcias PTA Evaluation of progress towards goal: Physical Therapy Care Plan (Resolved) There are no resolved problems. Principal Problem: Closed fracture of right hip, initial encounter ([facility]) Active Problems: Closed displaced intertrochanteric fracture of right femur ([facility]) Associated attestation - Brady Jauregui PT - 01/22/2024 4:19 PM EDT I have reviewed and agree with this note and education documentation for this visit. * Plan of Care - Santi Parks RN - 01/21/2024 9:31 PM EDT Problem: Pain Goal: Patient goal is pain score less than 4, able to rest, and participant in treatment plan as appropriate Description: INTERVENTIONS: 1. Encourage patient or legal charter representative to report early pain and ask for pain medicine when needed 2. Assess pain using appropriate pain scale and include the scale used when documenting 3. Administer analgesics based on type and severity of pain and evaluate response within appropriate time frame 4. Implement non-pharmacological measures as appropriate and evaluate response 5. Consider cultural and social influences on pain and pain management 6. Notify LIP if interventions ineffective or patient reports new pain 7. Monitor vital signs including pulse ox 8. Reassess pain per policy 9. Teach patient or legal charter representative interventions for comforting Outcome: Progressing Note: Evaluation of progress towards goal: pain assessed and analgesics administered as needed, nonpharmacological measures implemented as needed. Problem: Safety Goal: Patient will be injury free during hospitalization Description: INTERVENTIONS: 1. Assess patient's risk for falls and implement fall prevention plan of care per policy 2. Provide and maintain a safe environment 3. Proper use of double Identifiers 4. Medication administration using the 5 rights 5. Hand hygiene 6. Specimens are labeled at the bedside 7. Instruct patient/ patient charter representative about use of safety devices 8. Include patient/ patient charter representative in decisions related to safety Outcome: Progressing Note: Evaluation of progress towards goal: Safety measures initiated/maintained. Pt remains safe from harm/injury/falls Problem: Infection Goal: Absence of infection during hospitalization Description: Interventions: 1. Assess and monitor for signs and symptoms of infection 2. Monitor lab/diagnostic results 3. Monitor all insertion sites i.e., indwelling lines, tubes and drains 4. Monitor endotracheal (as able) and nasal secretions for changes in amount and color 5. Administer medications as ordered 6. Instruct and encourage patient and family to use good hand hygiene technique 7. Identify and instruct patient/patient charter representative in use of appropriate isolation precautionsfor identified infection/symptoms 8. Provide and discuss with patient/patient charter representative on educational MDRO sheet 9. Encourage and monitor nutritional status daily and consult maxillofacial pathology if indicated 10. Implement neutropenic guidelines as needed 11. Review exposure to history of communicable disease and recent travel history on admission 12. Encourage annual influenza vaccine 13. Encourage pneumonia vaccine Outcome: Progressing Note: Evaluation of progress towards goal: Pt afebrile at this time, continue to monitor for signs infection Problem: Knowledge Deficit Goal: Patient/patient charter representative demonstrates understanding of disease process, treatment plan,medications, and discharge instructions Description: INTERVENTIONS 1. Complete learning assessment and assess knowledge base 2. Provide teaching at level of understanding 3. Provide teaching via preferred learning method(s) Outcome: Progressing Note: Evaluation of progress towards goal: POC discussed with patient. Questions answered PRN. * PT/OT/THERMAL SURFACING MACHINE OPERATOR - NALLELY Grey - 01/21/2024 5:01 PM EDT Occupational Therapy Treatment (BID) Discharge Recommendations OT Recommendations : Inpatient Rehab Inpatient Rehab Criteria: All inpatient rehab criteria expected to be met 6 Clicks: Daily Activity Putting on and taking off regular lower body clothing?: A lot Bathing (including washing, rinsing, drying)?: A lot Toileting, which includes using toilet, bedpan or urinal?: A lot Putting on and taking off regular upper body clothing?: A little Taking care of personal grooming such as brushing teeth?: A little Eating meals?: None Scoring Daily Activity Raw Score: 16 CMS G Code Modifier: CK 01/21/24 0363 UE ROM UE ROM exercises performed? Yes Scapular retraction x Shoulder flexion/extension x Elbow flexion/extension x Other BUE AROM - seated with cues for tech Repetitions 15-20 OT Treatment/Interventions: Functional transfer training, UE strengthening/ROM, Endurance training,Patient/family training, Equipment eval/education, Balance, Compensatory technique education, Functional activities OT Frequency: Twice a Day OT Duration: Until discharge Assessment Patient Assessment Therapy Problem List: Decreased ADL status, Decreased balance, Decreased endurance, Decreased mobility, Decreased safe judgement during ADL, Decreased self-care trans, Decreased UE ROM, Decreased UE strength Patient Response to Treatment: Slow progress, decreased activity tolerance Mood/Affect: Appropriate for circumstances Rehab Prognosis: Good, With continued OT status post acute discharge Visit RN Communication: Yes Medical Record Reviewed: Yes OT Type of Visit: Treatment (BID) Precautions Activity: ok to tx per RN Equipment: gait belt, RW Weight Bearing Status: WBAT Rt LE Telemetry/Paper Machine Back Tender: No Oxygen Used: room air Other: fall risk Pain Assessment Pain Assessment: 0-10 Pain Score: 5 Pain Type: Surgical pain Pain Location: Hip, Back, Leg Pain Orientation: Right, Lower Pain Intervention(s): Repositioned, Cold applied, Ambulation/increased activity Response to Interventions: Pain improved ADL / IADL Hand Dominance: Right Where Assessed: At toilet, Supine, bed Toilet/Commode Assistance: Max assist Toilet/Commode Deficit: Supervison/safety, Increased time to complete, Grab bar use, Perineal hygiene Footwear Assistance: Max assist Footwear Deficit: R sock, L sock Other: Pt declined ADLs at this time. Home Management - IADL Other: Pt declined ADLs at this time. Hearing / Speech / Vision Hearing: Within Functional Limits Speech: Within Functional Limits Cognition Overall Cognitive Status: Exceptions to Within Functional Limits Arousal/Alertness: Appropriate responses to stimuli Attention Span: Attends with cues to redirect Orientation Level: Oriented X4 Following Commands: Follows one step commands with increased time, Follows one step commands with repetition Safety Judgment: Decreased awareness of need for safety Awareness of Errors: Assistance required to identify errors made Other: Pt pain improved this PM. pt pleasant and cooperative Bed Mobility Supine to Sit: Unable to assess Sit to Supine: Unable to assess Other: Pt up in recliner upon arrival and at end of session with call light in reach and nurse notified Transfers Sit to Stand: Min assist (x2) Stand to Sit: Min assist (x2) Toilet Transfers: Max assist (x2) Other: Pt completed sit<>stand with use of RW for BUE support and min A x2 to initiate and reach full stand. Pt with improved pain levels this PM. Cues given for proper hand placement and to kick out RLE for reduced pain. Increased time and effort to complete Gait Gait Assistance: Min assist Assistive Device: Rolling walker Gait Distance: 40ft x2 Other: Pt ambulated within bonner this date with use of RW for BUE support and min A for safety and stability. Cues given for RW safety/navigation and technique throughout. Increased time and effort tocompelte distances. Pt with slight unsteadiness noted with no LOB Balance Sitting Balance: Static: Good Sitting Balance: Dynamic: Fair (+) Standing Balance: Static: Fair Standing Balance: Dynamic: Fair (-) Other: Pt sat unsupported intermittently in recliner for ther ex and transfer prep with occasional back supported rest breaks needed. Use of RW for BUE support during amb and transfers with slight unsteadiness noted with no LOB Activity Tolerance Endurance: Tolerates >30 minutes activity with rest breaks Other: Pt limited d/t weakness, fatigue and pain. Increased time and effort to complete activity with rest breaks as needed Plan Occupational Therapy Care Plan Occupational Therapy Care Plan (Active) Template: OT - Occupational Therapy Problem: Activity Tolerance Dates: Start: 01/19/24 Disciplines: OT Goal: Tolerate > 30 minutes of activity WITHOUT rest breaks Dates: Start: 01/19/24 Expected End: 02/09/24 Description: Goal Description: Disciplines: OT Outcomes Date/Time User Outcome 01/21/24 1650 MALATHI Grey/Lanie Progressing 01/21/24 1053 NALLELY Grey Progressing 01/20/24 1610 NALLELY Meneses Progressing 01/20/24 0945 Katlin Goins, SERVIN/L Progressing 01/19/24 1531 Nano Maher SERVIN/L Progressing Problem: Bed Mobility Dates: Start: 01/19/24 Disciplines: OT Goal: Patient will perform bed mobility with Modified [place] Dates: Start: 01/19/24 Expected End: 02/09/24 Description: Goal Description: Disciplines: OT Outcomes Date/Time User Outcome 01/21/24 1053 Ludy Vogt, SERVIN/L Progressing 01/20/24 1610 Katlin Goins, SERVIN/L Progressing 01/20/24 0945 Katlin Goins, SERVIN/L Progressing 01/19/24 1531 Nano Maher SERVIN/L Progressing Problem: Functional Mobility Dates: Start: 01/19/24 Disciplines: OT Goal: Patient will perform functional mobility with Modified [place] Dates: Start: 01/19/24 Expected End: 02/09/24 Description: Goal Description: Disciplines: OT Outcomes Date/Time User Outcome 01/21/24 1650 Ludy Vogt, SERVIN/L Progressing 01/21/24 1053 Ludy Vogt, SERVIN/L Progressing 01/20/24 1610 Katlin Goins, SERVIN/L Progressing 01/20/24 0945 Katlin Buster, SERVIN/L Progressing 01/19/24 1531 Nano Maher SERVIN/L Progressing Problem: Other (Customize) Dates: Start: 01/19/24 Disciplines: OT Goal: Improve Dates: Start: 01/19/24 Expected End: 02/09/24 Description: Goal Description: Complete ADLs [place] with AE/DME Disciplines: OT Outcomes Date/Time User Outcome 01/21/24 1053 Ludy Vogt, SERVIN/L Not Progressing 01/20/24 0945 Katlin Goins, SERVIN/L Progressing Problem: Sitting Balance Dates: Start: 01/19/24 Disciplines: OT Goal: Improve balance to good Dates: Start: 01/19/24 Expected End: 02/09/24 Description: Static Dynamic Disciplines: OT Outcomes Date/Time User Outcome 01/21/24 1650 Ludy Vogt, SERVIN/L Progressing 01/21/24 1053 Ludy Vogt, SERVIN/L Progressing 01/20/24 1610 Katlin Goins, SERVIN/L Progressing 01/20/24 0945 Katlin Goins, SERVIN/L Progressing 01/19/24 1531 Nano Maher SERVIN/L Progressing Problem: Standing Balance Dates: Start: 01/19/24 Disciplines: OT Goal: Improve balance to good Dates: Start: 01/19/24 Expected End: 02/09/24 Description: Static Dynamic Disciplines: OT Outcomes Date/Time User Outcome 01/21/24 1650 Ludy Vogt, SERVIN/L Progressing 01/21/24 1053 Ludy Vogt, SERVIN/L Progressing 01/20/24 1610 Katlin Goins, SERVIN/L Progressing 01/20/24 0945 Katlin Goins, SERVIN/L Progressing 01/19/24 1531 Nano Maher SERVIN/L Progressing Problem: Strength Dates: Start: 01/19/24 Disciplines: OT Goal: Improve strength Dates: Start: 01/19/24 Expected End: 02/09/24 Description: Of extremity/ location: Tolerate bilat UE exercises to increase strength and endurancefor self care tasks. To facilitate: Disciplines: OT Outcomes Date/Time User Outcome 01/21/24 1650 Ludy Vogt, SERVIN/L Progressing 01/21/24 1053 Ludy Vogt, SERVIN/L Progressing 01/19/24 1531 Nano Maher SERVIN/L Progressing Problem: Transfers Dates: Start: 01/19/24 Disciplines: OT Goal: Patient will perform transfers with Modified [place] Dates: Start: 01/19/24 Expected End: 02/09/24 Description: Goal Description: Disciplines: OT Outcomes Date/Time User Outcome 01/21/24 1650 Ludy Vogt, SERVIN/L Progressing 01/21/24 1053 Ludy Vogt SERVIN/L Not Progressing 01/20/24 1610 Katlin Goins, SEVRIN/L Progressing 01/20/24 0945 Katlin Goins, SERVIN/L Progressing 01/19/24 1531 Nano Maher SERVIN/L Progressing Occupational Therapy Care Plan (Resolved) There are no resolved problems. Principal Problem: Closed fracture of right hip, initial encounter ([facility]) Active Problems: Closed displaced intertrochanteric fracture of right femur ([facility]) Associated attestation - Ludy Ireland OTR/L - 01/22/2024 7:38 AM EDT I have reviewed and agree with this note and education documentation for this visit. * Plan of Care - Chloe Vela RN - 01/21/2024 4:13 PM EDT Problem: Pain Goal: Patient goal is pain score less than 4, able to rest, and participant in treatment plan as appropriate Description: INTERVENTIONS: 1. Encourage patient or legal charter representative to report early pain and ask for pain medicine when needed 2. Assess pain using appropriate pain scale and include the scale used when documenting 3. Administer analgesics based on type and severity of pain and evaluate response within appropriate time frame 4. Implement non-pharmacological measures as appropriate and evaluate response 5. Consider cultural and social influences on pain and pain management 6. Notify LIP if interventions ineffective or patient reports new pain 7. Monitor vital signs including pulse ox 8. Reassess pain per policy 9. Teach patient or legal charter representative interventions for comforting Outcome: Progressing Note: Evaluation of progress towards goal: Pain assessed. Pain goal discussed. Patient educated on nonpharmacologcial and pharmocological interventions. Problem: Safety Goal: Patient will be injury free during hospitalization Description: INTERVENTIONS: 1. Assess patient's risk for falls and implement fall prevention plan of care per policy 2. Provide and maintain a safe environment 3. Proper use of double Identifiers 4. Medication administration using the 5 rights 5. Hand hygiene 6. Specimens are labeled at the bedside 7. Instruct patient/ patient charter representative about use of safety devices 8. Include patient/ patient charter representative in decisions related to safety Outcome: Progressing Note: Evaluation of progress towards goal: Pt remains free from injury this hospitalization. Problem: Infection Goal: Absence of infection during hospitalization Description: Interventions: 1. Assess and monitor for signs and symptoms of infection 2. Monitor lab/diagnostic results 3. Monitor all insertion sites i.e., indwelling lines, tubes and drains 4. Monitor endotracheal (as able) and nasal secretions for changes in amount and color 5. Administer medications as ordered 6. Instruct and encourage patient and family to use good hand hygiene technique 7. Identify and instruct patient/patient charter representative in use of appropriate isolation precautionsfor identified infection/symptoms 8. Provide and discuss with patient/patient charter representative on educational MDRO sheet 9. Encourage and monitor nutritional status daily and consult maxillofacial pathology if indicated 10. Implement neutropenic guidelines as needed 11. Review exposure to history of communicable disease and recent travel history on admission 12. Encourage annual influenza vaccine 13. Encourage pneumonia vaccine Outcome: Progressing Problem: Knowledge Deficit Goal: Patient/patient charter representative demonstrates understanding of disease process, treatment plan,medications, and discharge instructions Description: INTERVENTIONS 1. Complete learning assessment and assess knowledge base 2. Provide teaching at level of understanding 3. Provide teaching via preferred learning method(s) Outcome: Progressing Problem: Discharge Planning Goal: Discharge to post-acute care, other facility, or home with appropriate resources Description: Patient's goal is: INTERVENTIONS 1. Conduct assessment to determine patient/family and health care team treatment goals, and need for post-acute services based on payer coverage, community resources, and patient preferences, and barriers to discharge 2. Coordinate with Social work, Care Navigation, and Utilization Review to arrange appropriate level of services according to patient's needs based on patient preference and payer coverage in collaboration with the physician and health care team 3. Address psychosocial, clinical, and financial barriers to discharge as identified in assessment in conjunction with the patient/family and health care team 4. Consult appropriate ancillary services (i.e.. PT/OT/ST, etc) as needed 5. Communicate with and update the patient/family, physician, and health care team regarding progress on the discharge plan 6. Identify discharge learning needs (meds, wound care, etc). 7. Arrange for needed discharge transportation as appropriate Outcome: Progressing Problem: Glucose Imbalance Goal: Clinical indication of glucose balance is achieved Description: Patient's goal is: INTERVENTIONS 1. Monitor blood glucose levels as ordered 2. Administer medications as ordered 3. Notify physician of ineffective treatment plan Outcome: Progressing Goal: Patient's discharge needs are met Description: Patient's goal is: INTERVENTIONS 1. Assess patient for self-management skills 2. Encourage participation in diabetes management 3. Identify potential discharge barriers on admission and throughout hospital stay 4. Involve patient/S.O. in discharge planning process 5. Communicate referral to special educator as appropriate 6. Communicate referral to maxillofacial pathology as appropriate 7. Collaborate with case management/social worker health services for discharge needs Outcome: Progressing Problem: Moderate - High Risk Fall Score Description: Arredondo Fall Score of =/> 25 or indicated by [facility] Assessment Goal: Patient should be free from fall Description: Interventions: 1. [place] to environment 2. Hourly rounds addressing the 4 P's (Pain, Positioning, Possessions, Potty) 3. Clear area of hazards (spills, clutter, electrical cords, unnecessary equipment) 4. Place equipment (bed & TV controls, call light, phone, urinal) within reach 5. Encourage patient to wear glasses and hearing aides as appropriate 6. Maintain bed in lowest position 7. Lock wheels on bed/wheelchair 8. Provide adequate lighting, including night light 9. Assess need for additional bedding, food/fluids, pain med's prior to sleep/routinely 10. Provide gripper slippers or personal non-skid footwear 11. Teach patient and patient charter representative to maintain environment for safety and engage in all aspects of fall prevention program 12. Remind patient to call for help before getting out of bed 13. Initiate bed/chair/exit alarms supportive devices as appropriate, (chair wedge, no-skid floor mat, raised edge mattress, hip protectors) 14. Locate patient bed assignment for optimal visualization 15. Evaluate and identify Safe Patient Handling Equipment needs 16. Provide supervision when out of bed or chair 17. Utilize gait belt as needed to assist with ambulation 18. Place adaptive equipment (cane, walker) within reach 19. Request patient charter representative bring adaptive equipment/mobility aids from home or obtain and provide as needed 20. Consult pharmacy regarding effects of med's affecting mobility, cognition, and alternatives 21. Obtain physician order for PT if risk factors associated with mobility are present 22. Obtain physician order for OT as appropriate 23. Utilize diversional activities 24. Educate patient and patient charter representative how to maintain a safe environment during visitationtimes (notify nurse prior to leaving bedside) 25. Consider appropriateness of medical or non-medical librarian 26. Set up voiding schedule as appropriate (every 2 hours) Outcome: Progressing Note: Evaluation of progress towards goal: Fall precautions in place including bed locked and in lowest position, call light within reach and non skid socks on. Patient calls out appropriately for help. Hourly rounding in place. * PT/OT/THERMAL SURFACING MACHINE OPERATOR - Shahrzad Garcias, LIVE IN HOUSEKEEPER - 01/21/2024 3:32 PM EDT Physical Therapy Treatment (BID) Discharge Recommendations PT Recommendations: Inpatient Rehab Inpatient Rehab Criteria: All inpatient rehab criteria expected to be met 6 Clicks: Basic Mobility Turning from your back to your side while in a flat bed without using bed rails?: A little Moving from lying on your back to sitting on side of flat bed without using bed rails?: A lot Moving to and from bed to a chair (including w/c)?: A little Standing up from a chair using your arms (e.g. w/c or bedside chair)?: A lot To walk in hospital room?: A little Climbing 3-5 steps with a railing?: Total Scoring 6 Clicks: Basic Mobility Raw Score: 14 CMS G Code Modifier: CK Therapy Plan PT Treatment/Interventions: Functional transfer training, LE strengthening/ROM, Endurance training,Patient/family training, Equipment eval/education, Balance, Bed mobility, Gait training, Functionalactivities PT Frequency: Twice a Day PT Duration: LOS Patient Response to Treatment: Progressing toward goals Assessment Patient Assessment Therapy Problem List: Decreased ADL status, Decreased balance, Decreased endurance, Decreased mobility, Decreased safe judgement during ADL, Decreased self-care trans, Decreased UE ROM, Decreased UE strength Patient Response to Treatment: Progressing toward goals Mood/Affect: Appropriate for circumstances Rehab Prognosis: Good, With continued PT status post acute discharge Visit RN Communication: Yes Medical Record Reviewed: Yes PT Type of Visit: Treatment (BID) Precautions Activity: ok to tx per RN Equipment: gait belt, RW Weight Bearing Status: WBAT Rt LE Telemetry/Paper Machine Back Tender: No Oxygen Used: room air Other: fall risk Pain Assessment Pain Assessment: 0-10 Pain Score: 5 Pain Type: Surgical pain Pain Location: Hip, Back, Leg Pain Orientation: Right, Lower Pain Intervention(s): Repositioned, Ambulation/increased activity Response to Interventions: Pain unchanged, No grimacing Hearing / Speech / Vision Hearing: Within Functional Limits Speech: Within Functional Limits Current Vision: No visual deficits Cognition Overall Cognitive Status: Exceptions to Within Functional Limits Arousal/Alertness: Appropriate responses to stimuli Attention Span: Attends with cues to redirect Orientation Level: Oriented X4 Following Commands: Follows one step commands with increased time, Follows one step commands with repetition Safety Judgment: Decreased awareness of need for safety Awareness of Errors: Assistance required to identify errors made Other: Pt's pain improved in PM session. Redirection provided intermittently Bed Mobility Supine to Sit: Mod assist Other: Pt in recliner upon arrival to session. Ended tx with pt in recliner. All needs met, calll light in reach, RN aware. Discussed with pt about importance of use of call light to ask for assistance if needing to get up during the day. Transfers Sit to Stand: Min assist (x2) Stand to Sit: Min assist (x2) Toilet Transfers: Max assist (x2) Other: Transfers completed with use of RW for BUE support and education on safe hand placement and sequencing to reduce fall risk. Education also provided for eccentric control with sitting for safety. Improved tolerance this PM. Gait Base of Support: Wide Pattern: Decreased jesusita, Antalgic gait, R Decreased heel strike, L Decreased heel strike, R Decreased foot clearance, L Decreased foot clearance, Forward trunk, R Decreased stance time, R Flexed knee (dec step height/length) Gait Assistance: Min assist Assistive Device: Rolling walker Gait Distance: 40'x2 Limiting Factors to Gait: Fatigue, Weakness, Pain 2 Turns: Yes Other: Pt completed ambulation within room and hallway with MIN A for safety. Education provided onsequencing of gait pattern and intermittent assist provided for advancing RW to improve technique. Slow, guarded pattern noted. Pt educated on energy conservation and taking rest breaks as needed. Unsteadiness present with mobility, however no overt LOB. Improved tolerance this PM 01/21/24 1532 LE Seated LE seated exercises performed? Yes Ankle pumps x Long arc quads x Seated marching x Hip abduction/adduction x Other Glute sets, VVT cues for technique and sequencing. AAROM as needed for RLE Repetitions 15x Balance Sitting Balance: Static: Good Sitting Balance: Dynamic: Fair (+) Standing Balance: Static: Fair Standing Balance: Dynamic: Fair Other: Pt sat unsupported in recliner while participating in seated exercises. BUE support requiredfor ambulation within room and hallway for stability with MIN A for safety. mild posterior trunk lean upoon standing with cueing to shift weight forward onto toes to correct. No overt LOB this PM. Activity Tolerance Endurance: Tolerates >30 minutes activity with rest breaks Other: Intermittent rest breaks required. Pt is primarily limtied by pain when completing therapy tasks. Inc fatigue with ambulation, and standing rest break required between ambulation bouts. Plan Physical Therapy Care Plan Physical Therapy Care Plan (Active) Template: PT - Physical Therapy Problem: Activity Tolerance Dates: Start: 01/19/24 Disciplines: PT Goal: Tolerate > 30 minutes of activity WITH rest breaks Dates: Start: 01/19/24 Expected End: 02/02/24 Description: Goal Description: Disciplines: PT Outcomes Date/Time User Outcome 01/21/24 1741 Shahrzad Garcias, LIVE IN HOUSEKEEPER Progressing 01/21/24 1309 Shahrzad Garcias, LIVE IN HOUSEKEEPER Progressing 01/20/24 1607 Shahrzad Garcias, LIVE IN HOUSEKEEPER Progressing 01/20/24 1036 Shahrzad Garcias, LIVE IN HOUSEKEEPER Progressing 01/19/24 1721 Shahrzad Garcias PTA Progressing Goal Note filed on 01/21/24 174 by Shahrzad Garcias PTA Evaluation of progress towards goal: Problem: Bed Mobility Dates: Start: 01/19/24 Disciplines: PT Goal: Patient will perform bed mobility with Minimum Assist Dates: Start: 01/19/24 Expected End: 02/02/24 Description: Goal Description: Disciplines: PT Outcomes Date/Time User Outcome 01/21/24 1741 Shahrzad Garcias, LIVE IN HOUSEKEEPER Progressing 01/21/24 1309 Shahrzad Garcias, LIVE IN HOUSEKEEPER Progressing 01/20/24 1607 Shahrzad Garcias, SHERYL Progressing 01/20/24 1036 Shahrzad Garcias, LIVE IN HOUSEKEEPER Progressing 01/19/24 1721 Shahrzad Garcias PTA Progressing Goal Note filed on 01/21/24 1741 by Shahrzad Garcias PTA Evaluation of progress towards goal: Problem: Gait Dates: Start: 01/19/24 Disciplines: PT Goal: Patient will perform gait with Contact Guard Dates: Start: 01/19/24 Expected End: 02/02/24 Description: With_rw___,__150__feet Goal Description: Disciplines: PT Outcomes Date/Time User Outcome 01/21/24 1741 Shahrzad Garcias LIVE IN HOUSEKEEPER Progressing 01/21/24 1309 Shahrzad Garcias, SHERYL Progressing 01/20/24 1607 Shahrzad Garcias, LIVE IN HOUSEKEEPER Progressing 01/20/24 1036 Shahrzad Garcias PTA Progressing 01/19/24 1721 Shahrzad Garcias PTA Progressing Goal Note filed on 01/21/24 174 by Shahrzad Garcias PTA Evaluation of progress towards goal: Problem: Standing Balance Dates: Start: 01/19/24 Disciplines: PT Goal: Improve balance to good Dates: Start: 01/19/24 Expected End: 02/02/24 Description: Static Dynamic- good (-) with support of rw Disciplines: PT Outcomes Date/Time User Outcome 01/21/24 1741 Shahrzad Garcias, LIVE IN HOUSEKEEPER Progressing 01/21/24 1309 Shahrzad Garcias, LIVE IN HOUSEKEEPER Not Progressing 01/20/24 1036 Shahrzad Garcias, SHERYL Progressing 01/19/24 1721 Shahrzad Garcias PTA Progressing Goal Note filed on 01/21/24 174 by Shahrzad Garcias PTA Evaluation of progress towards goal: Problem: Strength Dates: Start: 01/19/24 Disciplines: PT Goal: Improve strength Dates: Start: 01/19/24 Expected End: 02/02/24 Description: Of extremity/ location:Complete 20 reps bilat UE/LE ex's To facilitate: Disciplines: PT Outcomes Date/Time User Outcome 01/21/24 174 Shahrzad Garcias PTA Progressing 01/21/24 1309 Shahrzad Garcias, LIVE IN HOUSEKEEPER Progressing 01/20/24 1607 Shahrzad Garcias PTA Progressing 01/20/24 1036 Shahrzad Garcias PTA Progressing 01/19/24 1721 Shahrzad Garcias PTA Progressing Goal Note filed on 01/21/24 174 by Shahrzad Garcias PTA Evaluation of progress towards goal: Problem: Transfers Dates: Start: 01/19/24 Disciplines: PT Goal: Patient will perform transfers with Contact Guard Dates: Start: 01/19/24 Expected End: 02/02/24 Description: Goal Description: Disciplines: PT Outcomes Date/Time User Outcome 01/21/24 174 Shahrzad Garcias LIVE IN HOUSEKEEPER Progressing 01/21/24 1309 Shahrzad Garcias PTA Not Progressing 01/20/24 1607 Shahrzad Garcias, SHERYL Progressing 01/20/24 1036 Shahrzad Garcias PTA Progressing 01/19/24 1721 Shahrzad Garcias PTA Progressing Goal Note filed on 01/21/24 1741 by Shahrzad Garcias PTA Evaluation of progress towards goal: Physical Therapy Care Plan (Resolved) There are no resolved problems. Principal Problem: Closed fracture of right hip, initial encounter ([facility]) Active Problems: Closed displaced intertrochanteric fracture of right femur ([facility] [place]) Associated attestation - Brady Jauregui PT - 01/22/2024 4:19 PM EDT I have reviewed and agree with this note and education documentation for this visit. * PT/OT/THERMAL SURFACING MACHINE OPERATOR - NALLELY Grye - 01/21/2024 11:13 AM EDT Occupational Therapy Treatment Discharge Recommendations OT Recommendations : Inpatient Rehab Inpatient Rehab Criteria: All inpatient rehab criteria expected to be met 6 Clicks: Daily Activity Putting on and taking off regular lower body clothing?: A lot Bathing (including washing, rinsing, drying)?: A lot Toileting, which includes using toilet, bedpan or urinal?: A lot Putting on and taking off regular upper body clothing?: A little Taking care of personal grooming such as brushing teeth?: A little Eating meals?: None Scoring Daily Activity Raw Score: 16 [facility] G Code Modifier: CK 01/21/24 1043 UE ROM UE ROM exercises performed? No (focused on functional mobility) OT Treatment/Interventions: ADL retraining, Functional transfer training, UE strengthening/ROM, Endurance training, Patient/family training, Equipment eval/education, Balance, Bed mobility, Compensatory technique education, Functional activities OT Frequency: Twice a Day OT Duration: Until discharge Assessment Patient Assessment Therapy Problem List: Decreased ADL status, Decreased balance, Decreased endurance, Decreased mobility, Decreased safe judgement during ADL, Decreased self-care trans, Decreased UE ROM, Decreased UE strength Patient Response to Treatment: Slow progress, decreased activity tolerance Mood/Affect: Appropriate for circumstances Rehab Prognosis: Good, With continued OT status post acute discharge Visit RN Communication: Yes Medical Record Reviewed: Yes OT Type of Visit: Treatment Precautions Activity: ok to tx per RN Equipment: gait belt, RW, IV pole Weight Bearing Status: WBAT Rt LE Telemetry/Paper Machine Back Tender: No Oxygen Used: room air Other: fall risk Pain Assessment Pain Assessment: 0-10 Pain Score: 10 Pain Type: Surgical pain Pain Location: Hip, Back, Leg Pain Orientation: Right, Lower Pain Intervention(s): Repositioned, Cold applied, Ambulation/increased activity (RN provided pain meds during session) Response to Interventions: Pain unchanged, Quiet ADL / IADL Hand Dominance: Right Where Assessed: At toilet, Supine, bed Toilet/Commode Assistance: Max assist Toilet/Commode Deficit: Supervison/safety, Increased time to complete, Grab bar use, Perineal hygiene Footwear Assistance: Max assist Footwear Deficit: R sock, L sock Other: Pt with increased pain upon arrival laying supine in bed. Max A to oleksandr B socks. Pt ambulated to toilet to complete BM needing increased time and effort. Pt needing max a to complete myah carewhile standing with BUE support. Use of grab bar for stability throughout. Home Management - IADL Other: Pt with increased pain upon arrival laying supine in bed. Max A to oleksandr B socks. Pt ambulated to toilet to complete BM needing increased time and effort. Pt needing max a to complete myah carewhile standing with BUE support. Use of grab bar for stability throughout. Hearing / Speech / Vision Hearing: Within Functional Limits Speech: Within Functional Limits Cognition Overall Cognitive Status: Exceptions to Within Functional Limits Arousal/Alertness: Appropriate responses to stimuli Attention Span: Attends with cues to redirect Following Commands: Follows one step commands with increased time, Follows one step commands with repetition Safety Judgment: Decreased awareness of need for safety Awareness of Errors: Assistance required to identify errors made Other: Pt very anxious throughout session and with increased pain needing extended time to process commands and cues Bed Mobility Supine to Sit: Mod assist Sit to Supine: Unable to assess Other: Pt completed supine to sit EOB with slightly elevated HOB and use of bed rail to assist in trunk elevation. Mod A providd for trunk and BLe support off of bed with pt utilizing looped gait belt as leg repairer controller tester for RLE to advance toward EOB. Pt with increased pain with movement needing increased time and effort to complete task. rest breaks as needed throughout. Cues given for sequencing, proper use of leg liffter and to scoot hips toward EOB. Pt denies dizziness. Pt up in recliner at end of session with call light in reach and nurse notified Transfers Sit to Stand: Max assist (x2) Stand to Sit: Max assist (x2) Toilet Transfers: Max assist (x2) Other: Pt completed sit<>stand x2 this date with use of RW for BUE support and max A x2 to initiate and reach full stand. Verbal cues provided for proper hand placement, technique and to kick out RLE for reduced pain with poor carryover d/t increased pain and pt very anxious throughout. cueing also provided for proper brething techniques throughout. Increased time and effort to complete all transfers with pt with unsteadiness but no LOB noted. Gait Gait Assistance: Min assist (x2) Assistive Device: Rolling walker Gait Distance: 10ft + 15ft Other: Pt ambulated within room this date with use of RW for BUE support and min A x2 for safety and stability. Pt with unsteadiness noted with no major LOB. Verbal cues provided for proper techniqueto push through BUE for increased support when stepping with RLE and sequencing with jesusita and RWnavigation with fair carryover throughout. pt reporting 10/10 pain throughout needign increased time to complete distances. Balance Sitting Balance: Static: Good Sitting Balance: Dynamic: Fair (+) Standing Balance: Static: Fair Standing Balance: Dynamic: Fair (-) Other: Pt sat unsupported at EOB with slight forward flexed posture and BUE support needed d/t pt trying to offload from RLE d/t pain. Use of RW for BUE support during amb and transfers with unsteadiness noted with no major LOB and min A x2 needed for gait for safety and stability. Activity Tolerance Endurance: Tolerates >30 minutes activity with rest breaks Other: Pt limited d/t weakness, fatigue and pain. Increased time and effort to complete activity with rest breaks as needed Plan Occupational Therapy Care Plan Occupational Therapy Care Plan (Active) Template: OT - Occupational Therapy Problem: Activity Tolerance Dates: Start: 01/19/24 Disciplines: OT Goal: Tolerate > 30 minutes of activity WITHOUT rest breaks Dates: Start: 01/19/24 Expected End: 02/09/24 Description: Goal Description: Disciplines: OT Outcomes Date/Time User Outcome 01/21/24 1053 Ludy Vogt, SERVIN/L Progressing 01/20/24 1610 Katlin Goins, SERVIN/L Progressing 01/20/24 0945 Katlin Goins, SERVIN/L Progressing 01/19/24 1531 Nano Maher, SERVIN/L Progressing Problem: Bed Mobility Dates: Start: 01/19/24 Disciplines: OT Goal: Patient will perform bed mobility with Modified [place] Dates: Start: 01/19/24 Expected End: 02/09/24 Description: Goal Description: Disciplines: OT Outcomes Date/Time User Outcome 01/21/24 1053 Ludy Vogt, SERVIN/L Progressing 01/20/24 1610 Katlin Goins SERVIN/L Progressing 01/20/24 0945 Katlin Goins, SERVIN/L Progressing 01/19/24 1531 Nano Maher, SERVIN/L Progressing Problem: Functional Mobility Dates: Start: 01/19/24 Disciplines: OT Goal: Patient will perform functional mobility with Modified [place] Dates: Start: 01/19/24 Expected End: 02/09/24 Description: Goal Description: Disciplines: OT Outcomes Date/Time User Outcome 01/21/24 1053 Ludy Vogt, SERVIN/L Progressing 01/20/24 1610 Katlin Goins SERVIN/L Progressing 01/20/24 0945 Katlin Goins, SERVIN/L Progressing 01/19/24 1531 Nano Maher, SERVIN/L Progressing Problem: Other (Customize) Dates: Start: 01/19/24 Disciplines: OT Goal: Improve Dates: Start: 01/19/24 Expected End: 02/09/24 Description: Goal Description: Complete ADLs [place] with AE/DME Disciplines: OT Outcomes Date/Time User Outcome 01/21/24 1053 Ludy Vogt SERVIN/L Not Progressing 01/20/24 0945 Katlin Goins, SERVIN/L Progressing Problem: Sitting Balance Dates: Start: 01/19/24 Disciplines: OT Goal: Improve balance to good Dates: Start: 01/19/24 Expected End: 02/09/24 Description: Static Dynamic Disciplines: OT Outcomes Date/Time User Outcome 01/21/24 1053 Ludy Vogt, SERVIN/L Progressing 01/20/24 1610 Katlin Goins, SERVIN/L Progressing 01/20/24 0945 Katlin Goins, SERVIN/L Progressing 01/19/24 1531 Nano Maher, SERVIN/L Progressing Problem: Standing Balance Dates: Start: 01/19/24 Disciplines: OT Goal: Improve balance to good Dates: Start: 01/19/24 Expected End: 02/09/24 Description: Static Dynamic Disciplines: OT Outcomes Date/Time User Outcome 01/21/24 1053 Ludy Vogt SERVIN/L Progressing 01/20/24 1610 Katlin Goins, SERVIN/L Progressing 01/20/24 0945 Katlin Goins, SERVIN/L Progressing 01/19/24 1531 Nano Maher SERVIN/L Progressing Problem: Strength Dates: Start: 01/19/24 Disciplines: OT Goal: Improve strength Dates: Start: 01/19/24 Expected End: 02/09/24 Description: Of extremity/ location: Tolerate bilat UE exercises to increase strength and endurancefor self care tasks. To facilitate: Disciplines: OT Outcomes Date/Time User Outcome 01/21/24 1053 Ludy Vogt SERVIN/L Progressing 01/19/24 1531 Nano Maher SERVIN/L Progressing Problem: Transfers Dates: Start: 01/19/24 Disciplines: OT Goal: Patient will perform transfers with Modified [place] Dates: Start: 01/19/24 Expected End: 02/09/24 Description: Goal Description: Disciplines: OT Outcomes Date/Time User Outcome 01/21/24 1053 Ludy Vogt SERVIN/L Not Progressing 01/20/24 1610 Katlin Goins, SERVIN/L Progressing 01/20/24 0945 Katlin Buster, SERVIN/L Progressing 01/19/24 1531 Nano Maher, SERVIN/L Progressing Occupational Therapy Care Plan (Resolved) There are no resolved problems. Principal Problem: Closed fracture of right hip, initial encounter ([facility]) Active Problems: Closed displaced intertrochanteric fracture of right femur ([facility]) Associated attestation - Virgil Nunes OTR/L - 01/21/2024 12:48 PM EDT I have reviewed and agree with this note and education documentation for this visit. * PT/OT/THERMAL SURFACING MACHINE OPERATOR - Shahrzad Garcias PTA - 01/21/2024 9:49 AM EDT Physical Therapy Treatment Discharge Recommendations PT Recommendations: Inpatient Rehab Inpatient Rehab Criteria: All inpatient rehab criteria expected to be met (Pt would benefit from IPR stay to increased strength, safety, balance, and endurance, and overall functional mobility prior to safe D/C home. Pt currently requires 2 person assistance for bed mobility and transfers.) 6 Clicks: Basic Mobility Turning from your back to your side while in a flat bed without using bed rails?: A lot Moving from lying on your back to sitting on side of flat bed without using bed rails?: A lot Moving to and from bed to a chair (including w/c)?: A lot Standing up from a chair using your arms (e.g. w/c or bedside chair)?: A lot To walk in hospital room?: A lot Climbing 3-5 steps with a railing?: Total Scoring 6 Clicks: Basic Mobility Raw Score: 11 CMS G Code Modifier: CL Therapy Plan PT Treatment/Interventions: Functional transfer training, LE strengthening/ROM, Endurance training,Patient/family training, Equipment eval/education, Balance, Bed mobility, Gait training, Functionalactivities PT Frequency: Twice a Day PT Duration: LOS Patient Response to Treatment: Slow progress, decreased activity tolerance Assessment Patient Assessment Therapy Problem List: Decreased ADL status, Decreased balance, Decreased endurance, Decreased mobility, Decreased safe judgement during ADL, Decreased self-care trans, Decreased UE ROM, Decreased UE strength Patient Response to Treatment: Slow progress, decreased activity tolerance Mood/Affect: Appropriate for circumstances Rehab Prognosis: Good, With continued PT status post acute discharge Visit RN Communication: Yes Medical Record Reviewed: Yes PT Type of Visit: Treatment Precautions Activity: ok to tx per RN Equipment: gait belt, RW, IV pole Weight Bearing Status: WBAT Rt LE Telemetry/Paper Machine Back Tender: No Oxygen Used: room air Other: fall risk Pain Assessment Pain Assessment: 0-10 Pain Score: 10 Pain Type: Surgical pain Pain Location: Hip, Back, Leg Pain Orientation: Right, Lower Pain Intervention(s): Repositioned, Cold applied, Ambulation/increased activity (RN provided pain meds during session) Response to Interventions: Pain unchanged, Quiet Hearing / Speech / Vision Hearing: Within Functional Limits Speech: Within Functional Limits Cognition Overall Cognitive Status: Exceptions to Within Functional Limits Arousal/Alertness: Appropriate responses to stimuli Attention Span: Attends with cues to redirect Following Commands: Follows one step commands with increased time, Follows one step commands with repetition Safety Judgment: Decreased awareness of need for safety Awareness of Errors: Assistance required to identify errors made Other: Pt is greatly limited by pain this session. Pt very anxious with participation in all mobility tasks and required increased timefor all activities. Education provided on safety, fall risk and prevention, and energy conservation Bed Mobility Supine to Sit: Mod assist Other: MOD A provided for trunk and BLE support. HOB elevated slightly and use of bed railing required to complete. Use of limb repairer controller tester for RLE support OOB. Increased time and effort to complete. Pt sitting in the recliner at the end of tx session with BLEs elevated, ice applied to R hip, all needs met, RN aware. Transfers Sit to Stand: Max assist (x2) Stand to Sit: Max assist (x2) Toilet Transfers: Max assist (x2) Other: Pt completed multiple transfers this date with MAX Ax2 for trunk support. Education providedon sequencing of transfer and use of RW for BUE support. Increased time/effort and bed height elevated to complete. Pt reporting elevated pain in RLE during transitions- cued pt on kicking out RLE and inc WB through LLE during transitions to reduce pain/pressure through RLE. Pt reported mild dizziness with positional change that resolved with inc time. Gait Base of Support: Wide Pattern: Decreased jesusita, Antalgic gait, R Decreased heel strike, L Decreased heel strike, R Decreased foot clearance, L Decreased foot clearance, Forward trunk, R Decreased stance time, R Flexed knee (dec step height/length) Gait Assistance: Min assist (x2) Assistive Device: Rolling walker Gait Distance: 10', 15' Limiting Factors to Gait: Fatigue, Weakness, Pain 2 Turns: Yes Other: Pt ambulated within room with MIN A x2 for safety and use of RW for BUE support. Education provided on gait sequencing and TKE during R SLS, inc WB through UEs to offload weight on RLE. Fair carryover noted. Limited tolerance to amb d/t inc pain. RN aware 01/21/24 0949 Neuro Re-ed LE exercises performed? Yes Seated supported x Weightbearing x Seated unsupported x Standing alignment x Balance Sitting Balance: Static: Good Sitting Balance: Dynamic: Fair (+) Standing Balance: Static: Fair Standing Balance: Dynamic: Fair (-) Other: Pt completed standing mobility tasks with BUE support on RW handles. Pt attempted standing myah care, however was unable to stand with single UE support to complete. Assistance required to complete myah care. No overt LOB noted when sitting unsupported Activity Tolerance Endurance: Tolerates >30 minutes activity with rest breaks Other: Pt very limited by pain this PM. Increased time and effort to complete therapy tasks. Much encouragement, education, and reassurance provided surendra madrigal. Frequent rest breaks required. Pt tends to hold his breath when completing tasks- education on PLB technique. Plan Physical Therapy Care Plan Physical Therapy Care Plan (Active) Template: PT - Physical Therapy Problem: Activity Tolerance Dates: Start: 01/19/24 Disciplines: PT Goal: Tolerate > 30 minutes of activity WITH rest breaks Dates: Start: 01/19/24 Expected End: 02/02/24 Description: Goal Description: Disciplines: PT Outcomes Date/Time User Outcome 01/21/24 1309 Shahrzad Garcias PTA Progressing 01/20/24 1607 Shahrzad Garcias PTA Progressing 01/20/24 1036 Shahrzad Garcias PTA Progressing 01/19/24 1721 Shahrzad Garcias PTA Progressing Goal Note filed on 01/21/24 1309 by Shahrzad Garcias PTA Evaluation of progress towards goal: Problem: Bed Mobility Dates: Start: 01/19/24 Disciplines: PT Goal: Patient will perform bed mobility with Minimum Assist Dates: Start: 01/19/24 Expected End: 02/02/24 Description: Goal Description: Disciplines: PT Outcomes Date/Time User Outcome 01/21/24 1309 Shahrzad Garcias PTA Progressing 01/20/24 1607 Shahrzad Garcias PTA Progressing 01/20/24 1036 Shahrzad Garcias PTA Progressing 01/19/24 1721 Shahrzad Garcias PTA Progressing Goal Note filed on 01/21/24 1309 by Shahrzad Garcias PTA Evaluation of progress towards goal: Problem: Gait Dates: Start: 01/19/24 Disciplines: PT Goal: Patient will perform gait with Contact Guard Dates: Start: 01/19/24 Expected End: 02/02/24 Description: With_rw___,__150__feet Goal Description: Disciplines: PT Outcomes Date/Time User Outcome 01/21/24 1309 Shahrzad Garcias PTA Progressing 01/20/24 1607 Shahrzad Garcias PTA Progressing 01/20/24 1036 Shahrzad Garcias PTA Progressing 01/19/24 1721 Shahrzad Garcias PTA Progressing Goal Note filed on 01/21/24 1309 by Sharhzad Garcias PTA Evaluation of progress towards goal: Problem: Standing Balance Dates: Start: 01/19/24 Disciplines: PT Goal: Improve balance to good Dates: Start: 01/19/24 Expected End: 02/02/24 Description: Static Dynamic- good (-) with support of rw Disciplines: PT Outcomes Date/Time User Outcome 01/21/24 1309 Shahrzad Garcias PTA Not Progressing 01/20/24 1036 Shahrzad Garcias PTA Progressing 01/19/24 1721 Shahrzad Garcias PTA Progressing Goal Note filed on 01/21/24 1309 by Shahrzad Garcias PTA Evaluation of progress towards goal: Problem: Strength Dates: Start: 01/19/24 Disciplines: PT Goal: Improve strength Dates: Start: 01/19/24 Expected End: 02/02/24 Description: Of extremity/ location:Complete 20 reps bilat UE/LE ex's To facilitate: Disciplines: PT Outcomes Date/Time User Outcome 01/21/24 1309 Shahrzad Garcias PTA Progressing 01/20/24 1607 Shahrzad Garcias PTA Progressing 01/20/24 1036 Shahrzad Garcias PTA Progressing 01/19/24 1721 Shahrzad Garcias PTA Progressing Goal Note filed on 01/21/24 1309 by Shahrzad Garcias PTA Evaluation of progress towards goal: Problem: Transfers Dates: Start: 01/19/24 Disciplines: PT Goal: Patient will perform transfers with Contact Guard Dates: Start: 01/19/24 Expected End: 02/02/24 Description: Goal Description: Disciplines: PT Outcomes Date/Time User Outcome 01/21/24 1309 Shahrzad Garcias PTA Not Progressing 01/20/24 1607 Shahrzad Garcias PTA Progressing 01/20/24 1036 Shahrzad Garcias PTA Progressing 01/19/24 1721 Shahrzad Garcias PTA Progressing Goal Note filed on 01/21/24 1309 by Shahrzad Garcias PTA Evaluation of progress towards goal: Physical Therapy Care Plan (Resolved) There are no resolved problems. Principal Problem: Closed fracture of right hip, initial encounter ([facility]) Active Problems: Closed displaced intertrochanteric fracture of right femur ([facility]) Associated attestation - Carlos Brar PT - 01/21/2024 3:57 PM EDT I have reviewed and agree with this note and education documentation for this visit. * Plan of Care - Virgil Gonzalez RN - 01/21/2024 2:05 AM EDT Problem: Pain Goal: Patient goal is pain score less than 4, able to rest, and participant in treatment plan as appropriate Description: INTERVENTIONS: 1. Encourage patient or legal charter representative to report early pain and ask for pain medicine when needed 2. Assess pain using appropriate pain scale and include the scale used when documenting 3. Administer analgesics based on type and severity of pain and evaluate response within appropriate time frame 4. Implement non-pharmacological measures as appropriate and evaluate response 5. Consider cultural and social influences on pain and pain management 6. Notify LIP if interventions ineffective or patient reports new pain 7. Monitor vital signs including pulse ox 8. Reassess pain per policy 9. Teach patient or legal charter representative interventions for comforting Outcome: Not Progressing Note: Evaluation of progress towards goal: Patient has consistently reported severe pain, 9-10, andhas requested meds at every interval allowed based on his orders. His vitals have been stable and he is not showing any signs of physical distress. Pt was educated on the toll that continuously taking narcotics will contribute to his constipation as well as the physical impact it will have on his body. * PT/OT/THERMAL SURFACING MACHINE OPERATOR - NALLELY Meneses - 01/20/2024 4:21 PM EDT Occupational Therapy Treatment (BID) Discharge Recommendations OT Recommendations : Inpatient Rehab Inpatient Rehab Criteria: All inpatient rehab criteria expected to be met 6 Clicks: Daily Activity Putting on and taking off regular lower body clothing?: A lot Bathing (including washing, rinsing, drying)?: A lot Toileting, which includes using toilet, bedpan or urinal?: Total (palacios) Putting on and taking off regular upper body clothing?: A little Taking care of personal grooming such as brushing teeth?: A little Eating meals?: None Scoring Daily Activity Raw Score: 15 CMS G Code Modifier: CK OT Treatment/Interventions: ADL retraining, Functional transfer training, UE strengthening/ROM, LE strengthening/ROM, Endurance training, Patient/family training, Equipment eval/education, Balance, Bed mobility, Compensatory technique education, Functional activities OT Frequency: Twice a Day OT Duration: Until discharge Assessment Patient Assessment Therapy Problem List: Decreased ADL status, Decreased balance, Decreased endurance, Decreased high-level ADLs, Decreased mobility, Decreased safe judgement during ADL, Decreased self-care trans, Decreased UE strength, Decreased LE strength Patient Response to Treatment: Slow progress, decreased activity tolerance Mood/Affect: Appropriate for circumstances Rehab Prognosis: Good, With continued OT status post acute discharge Visit RN Communication: Yes Medical Record Reviewed: Yes OT Type of Visit: Treatment (BID) Precautions Activity: mobilize with assistance, okay for RT LE ROM as tolerated; ok to see per RN Equipment: gait belt, RW, palacios Weight Bearing Status: WBAT Rt LE Oxygen Used: room air Other: fall risk Pain Assessment Pain Assessment: 0-10 Pain Score: 7 Pain Type: Surgical pain Pain Location: Hip, Back, Leg Pain Orientation: Right, Lower Pain Intervention(s): Cold applied, Repositioned, Ambulation/increased activity Response to Interventions: Quiet, No grimacing ADL / IADL Hand Dominance: Right Where Assessed: Standing at sink Grooming Assistance: Contact guard assist Grooming Deficit: Steadying, Supervision/safety, Wash/dry hands, Wash/dry face, Oral hygiene Footwear Assistance: Mod assist Footwear Deficit: R sock Other: Pt utilized figure 4 tech to don L sock seated on EOB; pt attempted to don R sock however required A d/t pain/weakness in RLE. Home Management - IADL Other: Pt utilized figure 4 tech to don L sock seated on EOB; pt attempted to don R sock however required A d/t pain/weakness in RLE. Hearing / Speech / Vision Hearing: Within Functional Limits Speech: Within Functional Limits Cognition Attention Span: Attends with cues to redirect Orientation Level: Oriented X4 Following Commands: Follows one step commands with repetition Safety Judgment: Decreased awareness of need for safety Awareness of Errors: Assistance required to identify errors made Bed Mobility Supine to Sit: Mod assist (x2) Other: HOB flat with bed rails down to simulate home environment. Pt utilized gait belt as leg repairer controller tester with cues for tech to A RLE OOB. Pt required mod A x2 to progress trunk. Pt in chair at end of session with call light within reach, RN aware. Transfers Sit to Stand: Max assist (x2) Stand to Sit: Max assist (x2) Other: Pt completed STS with max A x2 with cues for rocking for momentum and breathing tech as pt tends to hold breath during mobility tasks. Increased time/effort to complete, no LOB noted. Gait Gait Assistance: Min assist (x2) Assistive Device: Rolling walker Gait Distance: 20' Limiting Factors to Gait: Fatigue, Weakness, Pain Other: Pt performed functional mobility within room with BUE support on RW. Pt required increased time/effort to complete with cues for breathing tech/pacing. Balance Sitting Balance: Static: Good Sitting Balance: Dynamic: Fair (+) Standing Balance: Static: Fair Standing Balance: Dynamic: Fair (-) Other: Pt completed standing marches with LIVE IN HOUSEKEEPER with heavy BUE support on RW. Pt shakey with exercisehowever no LOB noted. Activity Tolerance Endurance: Tolerates 30 minutes activity with rest breaks Other: Rest breaks as needed. Increased time/effort for all tasks. Additional education on discharge recommendation provided with pt verbalizing understanding. Plan Occupational Therapy Care Plan Occupational Therapy Care Plan (Active) Template: OT - Occupational Therapy Problem: Activity Tolerance Dates: Start: 01/19/24 Disciplines: OT Goal: Tolerate > 30 minutes of activity WITHOUT rest breaks Dates: Start: 01/19/24 Expected End: 02/09/24 Description: Goal Description: Disciplines: OT Outcomes Date/Time User Outcome 01/20/24 1610 Katlin Goins, SERVIN/L Progressing 01/20/24 0945 Katlin Goins, SERVIN/L Progressing 01/19/24 1531 Nano Maher SERVIN/L Progressing Problem: Bed Mobility Dates: Start: 01/19/24 Disciplines: OT Goal: Patient will perform bed mobility with Modified [place] Dates: Start: 01/19/24 Expected End: 02/09/24 Description: Goal Description: Disciplines: OT Outcomes Date/Time User Outcome 01/20/24 1610 Katlin Goins, SERVIN/L Progressing 01/20/24 0945 Katlin Goins, SERVIN/L Progressing 01/19/24 1531 Nano Maher SERVIN/L Progressing Problem: Functional Mobility Dates: Start: 01/19/24 Disciplines: OT Goal: Patient will perform functional mobility with Modified [place] Dates: Start: 01/19/24 Expected End: 02/09/24 Description: Goal Description: Disciplines: OT Outcomes Date/Time User Outcome 01/20/24 1610 Katlin Goins, SERVIN/L Progressing 01/20/24 0945 Katlin Goins, SERVIN/L Progressing 01/19/24 1531 Nano Maher SERVIN/L Progressing Problem: Other (Customize) Dates: Start: 01/19/24 Disciplines: OT Goal: Improve Dates: Start: 01/19/24 Expected End: 02/09/24 Description: Goal Description: Complete ADLs [place] with AE/DME Disciplines: OT Outcomes Date/Time User Outcome 01/20/24 0945 Katlin Goins SERVIN/L Progressing Problem: Sitting Balance Dates: Start: 01/19/24 Disciplines: OT Goal: Improve balance to good Dates: Start: 01/19/24 Expected End: 02/09/24 Description: Static Dynamic Disciplines: OT Outcomes Date/Time User Outcome 01/20/24 1610 Katlin Goins, SERVIN/L Progressing 01/20/24 0945 Katlin Buster, SERVIN/L Progressing 01/19/24 1531 Nano Maher SREVIN/L Progressing Problem: Standing Balance Dates: Start: 01/19/24 Disciplines: OT Goal: Improve balance to good Dates: Start: 01/19/24 Expected End: 02/09/24 Description: Static Dynamic Disciplines: OT Outcomes Date/Time User Outcome 01/20/24 1610 CHARU MenesesA/Lanie Progressing 01/20/24 0945 Katlin Goins SERVIN/L Progressing 01/19/24 1531 CHARU HernandezA/L Progressing Problem: Strength Dates: Start: 01/19/24 Disciplines: OT Goal: Improve strength Dates: Start: 01/19/24 Expected End: 02/09/24 Description: Of extremity/ location: Tolerate bilat UE exercises to increase strength and endurancefor self care tasks. To facilitate: Disciplines: OT Outcomes Date/Time User Outcome 01/19/24 1531 MALATHI Hernandez/Lanie Progressing Problem: Transfers Dates: Start: 01/19/24 Disciplines: OT Goal: Patient will perform transfers with Modified [place] Dates: Start: 01/19/24 Expected End: 02/09/24 Description: Goal Description: Disciplines: OT Outcomes Date/Time User Outcome 01/20/24 1610 CHARU MenesesA/L Progressing 01/20/24 0945 Katlin Goins SERVIN/L Progressing 01/19/24 1531 CHARU HernandezA/Lanie Progressing Occupational Therapy Care Plan (Resolved) There are no resolved problems. Principal Problem: Closed fracture of right hip, initial encounter ([facility]) Active Problems: Closed displaced intertrochanteric fracture of right femur ([facility]) Associated attestation - Virgil Nunes OTR/L - 01/21/2024 12:48 PM EDT I have reviewed and agree with this note and education documentation for this visit. * PT/OT/THERMAL SURFACING MACHINE OPERATOR - Shahrzad Garcias PTA - 01/20/2024 3:15 PM EDT Physical Therapy Treatment (BID) Discharge Recommendations PT Recommendations: Inpatient Rehab Inpatient Rehab Criteria: All inpatient rehab criteria expected to be met (Pt would benefit from IPR stay to increased strength, safety, balance, and endurance, and overall functional mobility prior to safe D/C home. Pt currently requires 2 person assistance for bed mobility and transfers.) 6 Clicks: Basic Mobility Turning from your back to your side while in a flat bed without using bed rails?: A lot Moving from lying on your back to sitting on side of flat bed without using bed rails?: A lot Moving to and from bed to a chair (including w/c)?: A lot Standing up from a chair using your arms (e.g. w/c or bedside chair)?: A lot To walk in hospital room?: A lot Climbing 3-5 steps with a railing?: Total Scoring 6 Clicks: Basic Mobility Raw Score: 11 CMS G Code Modifier: CL Therapy Plan PT Treatment/Interventions: Functional transfer training, LE strengthening/ROM, Endurance training,Patient/family training, Equipment eval/education, Balance, Bed mobility, Gait training, Functionalactivities PT Frequency: Twice a Day PT Duration: LOS. Patient Response to Treatment: Slow progress, decreased activity tolerance Assessment Patient Assessment Therapy Problem List: Decreased ADL status, Decreased balance, Decreased endurance, Decreased high-level ADLs, Decreased mobility, Decreased safe judgement during ADL, Decreased self-care trans, Decreased UE strength, Decreased LE strength Patient Response to Treatment: Slow progress, decreased activity tolerance Mood/Affect: Appropriate for circumstances Rehab Prognosis: Good, With continued PT status post acute discharge Visit RN Communication: Yes Medical Record Reviewed: Yes PT Type of Visit: Treatment (BID) Precautions Activity: mobilize with assistance, okay for RT LE ROM as tolerated; ok to see per RN Equipment: gait belt, RW, palacios Weight Bearing Status: WBAT Rt LE Oxygen Used: room air Other: fall risk Pain Assessment Pain Assessment: 0-10 Pain Score: 7 Pain Type: Surgical pain Pain Location: Hip, Back, Leg Pain Orientation: Right, Lower Pain Intervention(s): Cold applied, Repositioned, Ambulation/increased activity Response to Interventions: Quiet, No grimacing Hearing / Speech / Vision Hearing: Within Functional Limits Speech: Within Functional Limits Cognition Attention Span: Attends with cues to redirect Orientation Level: Oriented X4 Following Commands: Follows one step commands with repetition Safety Judgment: Decreased awareness of need for safety Awareness of Errors: Assistance required to identify errors made Other: Pt required increased time to complete functional mobility tasks for education on safety, fall risk and prevention, safety following D/C, recommendations, and current mobility level Bed Mobility Supine to Sit: Mod assist (x2) Other: Pt completed bed mobility with flat HOB and no use of bed railing. Education provided on useof limb repairer controller tester to assist RLE OOB. Pt able to advance LEs OOB with CGA for safety. Difficulty noted with trunk progression, therefore MOD A x2 required to complete. Pt denied dizziness with positionalchange. Pt sitting in recliner at end of tx session with call light in reach, all needs met, ice applied to RLE, RN aware. Transfers Sit to Stand: Max assist (x2) Stand to Sit: Max assist (x2) Other: MAX A x2 required for transfers this date with cueing for use of momentum, placement of BLEs, and breathing technique to reduce valsalva. Heavy posterior trunk lean upon standing. Cueing to shift weight forward to correct- fair return noted. Pt reporting dizziness upon standing with inc timeto recover. Educated on ensuring dizizness resolved prior to ambulating to redce fall risk. Gait Base of Support: Wide Pattern: Decreased jesusita, Antalgic gait, R Decreased heel strike, L Decreased heel strike, R Decreased foot clearance, L Decreased foot clearance, Forward trunk, R Decreased stance time, R Flexed knee (dec step height/length) Gait Assistance: Min assist (x2) Assistive Device: Rolling walker Gait Distance: 20' Limiting Factors to Gait: Fatigue, Weakness, Pain Other: Pt ambulated within room this date with MIN A x2 for safety and use of RW for BUE support. Increased time to complete d/t inc pain and fatigue, Educated pt on heel>toe gait pattern, TKE during SLS on RLE, and maintaining erect posture to inc stability. 01/20/24 1515 Neuro Re-ed LE exercises performed? Yes Seated unsupported x Standing alignment x Marching x (x3) Balance Sitting Balance: Static: Good Sitting Balance: Dynamic: Fair (+) Standing Balance: Static: Fair Standing Balance: Dynamic: Fair (-) Other: Pt completed standing marches within RW with heavy BUE supoport on RW handles. Unsteadiness present and MIN A x2 required for safety. Unsupported sitting at EOB with intermittent UE support onbed for stabilization noted- pt unable to perform trunk flexion to reach RLE to oleksandr sock at this time Activity Tolerance Endurance: Tolerates 30 minutes activity with rest breaks Other: Pt required frequent rest breaks secondary to pain and decreased endurance. Increased time required to complete tasks. Education provided on therapy D/C recommendation s and safety/fall prevention Plan Physical Therapy Care Plan Physical Therapy Care Plan (Active) Template: PT - Physical Therapy Problem: Activity Tolerance Dates: Start: 01/19/24 Disciplines: PT Goal: Tolerate > 30 minutes of activity WITH rest breaks Dates: Start: 01/19/24 Expected End: 02/02/24 Description: Goal Description: Disciplines: PT Outcomes Date/Time User Outcome 01/20/24 1607 Shahrzad Garcias PTA Progressing 01/20/24 1036 Shahrzad Garcias PTA Progressing 01/19/24 1721 Shahrzad Garcias PTA Progressing Goal Note filed on 01/20/24 1607 by Shahrzad Garcias PTA Evaluation of progress towards goal: Problem: Bed Mobility Dates: Start: 01/19/24 Disciplines: PT Goal: Patient will perform bed mobility with Minimum Assist Dates: Start: 01/19/24 Expected End: 02/02/24 Description: Goal Description: Disciplines: PT Outcomes Date/Time User Outcome 01/20/24 1607 Shahrzad Garcias PTA Progressing 01/20/24 1036 Shahrzad Garcias PTA Progressing 01/19/24 1721 Shahrzad Garcias PTA Progressing Goal Note filed on 01/20/24 1607 by Shahrzad Garcias PTA Evaluation of progress towards goal: Problem: Gait Dates: Start: 01/19/24 Disciplines: PT Goal: Patient will perform gait with Contact Guard Dates: Start: 01/19/24 Expected End: 02/02/24 Description: With_rw___,__150__feet Goal Description: Disciplines: PT Outcomes Date/Time User Outcome 01/20/24 1607 Shahrzad Garcias PTA Progressing 01/20/24 1036 Shahrzad Garcias PTA Progressing 01/19/24 1721 Shahrzad Garcias PTA Progressing Goal Note filed on 01/20/24 1607 by Shahrzad Garcias PTA Evaluation of progress towards goal: Problem: Standing Balance Dates: Start: 01/19/24 Disciplines: PT Goal: Improve balance to good Dates: Start: 01/19/24 Expected End: 02/02/24 Description: Static Dynamic- good (-) with support of rw Disciplines: PT Outcomes Date/Time User Outcome 01/20/24 1036 Shahrzad Garcias, SHERYL Progressing 01/19/24 1721 Shahrzad Garcias PTA Progressing Goal Note filed on 01/20/24 1607 by Shahrzad Garcias PTA Evaluation of progress towards goal: Problem: Strength Dates: Start: 01/19/24 Disciplines: PT Goal: Improve strength Dates: Start: 01/19/24 Expected End: 02/02/24 Description: Of extremity/ location:Complete 20 reps bilat UE/LE ex's To facilitate: Disciplines: PT Outcomes Date/Time User Outcome 01/20/24 1607 Shahrzad Garcias PTA Progressing 01/20/24 1036 Shahrzad Garcias PTA Progressing 01/19/24 1721 Shahrzad Garcias PTA Progressing Goal Note filed on 01/20/24 1607 by Shahrzad Garcais PTA Evaluation of progress towards goal: Problem: Transfers Dates: Start: 01/19/24 Disciplines: PT Goal: Patient will perform transfers with Contact Guard Dates: Start: 01/19/24 Expected End: 02/02/24 Description: Goal Description: Disciplines: PT Outcomes Date/Time User Outcome 01/20/24 1607 Shahrzad Garcias PTA Progressing 01/20/24 1036 Shahrzad Garcias PTA Progressing 01/19/24 1721 Shahrzad Garcias PTA Progressing Goal Note filed on 01/20/24 1607 by Shahrzad Garcias PTA Evaluation of progress towards goal: Physical Therapy Care Plan (Resolved) There are no resolved problems. Principal Problem: Closed fracture of right hip, initial encounter ([facility]) Active Problems: Closed displaced intertrochanteric fracture of right femur ([facility]) Associated attestation - Carlos Brar PT - 01/21/2024 3:57 PM EDT I have reviewed and agree with this note and education documentation for this visit. * PT/OT/THERMAL SURFACING MACHINE OPERATOR - NALLELY Meneses - 01/20/2024 10:11 AM EDT Occupational Therapy Treatment (BID) Discharge Recommendations OT Recommendations : Inpatient Rehab Inpatient Rehab Criteria: All inpatient rehab criteria expected to be met (Pt would benefit from IPR stay to increase strength, endurance, and independence with self-care. Pt currently requires 2 person assistance to get out of bed and for all mobility.) 6 Clicks: Daily Activity Putting on and taking off regular lower body clothing?: A lot Bathing (including washing, rinsing, drying)?: A lot Toileting, which includes using toilet, bedpan or urinal?: Total (palacios) Putting on and taking off regular upper body clothing?: A little Taking care of personal grooming such as brushing teeth?: A little Eating meals?: None Scoring Daily Activity Raw Score: 15 CMS G Code Modifier: CK OT Treatment/Interventions: ADL retraining, Functional transfer training, UE strengthening/ROM, LE strengthening/ROM, Endurance training, Patient/family training, Equipment eval/education, Balance, Bed mobility, Compensatory technique education, Functional activities OT Frequency: Twice a Day OT Duration: Until discharge Assessment Patient Assessment Therapy Problem List: Decreased ADL status, Decreased balance, Decreased endurance, Decreased high-level ADLs, Decreased mobility, Decreased safe judgement during ADL, Decreased self-care trans, Decreased UE strength, Decreased LE strength Patient Response to Treatment: Slow progress, decreased activity tolerance Mood/Affect: Appropriate for circumstances Rehab Prognosis: Good, With continued OT status post acute discharge Visit RN Communication: Yes Medical Record Reviewed: Yes OT Type of Visit: Treatment (BID) Precautions Activity: mobilize with assistance, okay for RT LE ROM as tolerated; ok to see per RN Equipment: gait belt, RW, palacios Weight Bearing Status: WBAT Rt LE Oxygen Used: room air Other: fall risk Pain Assessment Pain Assessment: 0-10 Pain Score: 8 Pain Type: Surgical pain Pain Location: Hip, Back, Leg Pain Orientation: Right, Lower Pain Intervention(s): Cold applied, Repositioned, Ambulation/increased activity Response to Interventions: Quiet, No grimacing ADL / IADL Hand Dominance: Right Where Assessed: Standing at sink Grooming Assistance: Contact guard assist Grooming Deficit: Steadying, Supervision/safety, Wash/dry hands, Wash/dry face, Oral hygiene Footwear Assistance: Standby assist Footwear Deficit: L sock Other: Pt utilized figure 4 tech to don L sock seated on EOB. Pt stood at sink to complete groomingtasks with CGA. Home Management - IADL Other: Pt utilized figure 4 tech to don L sock seated on EOB. Pt stood at sink to complete groomingtasks with CGA. Hearing / Speech / Vision Hearing: Within Functional Limits Speech: Within Functional Limits Cognition Attention Span: Attends with cues to redirect Orientation Level: Oriented X4 Following Commands: Follows one step commands with repetition Safety Judgment: Decreased awareness of need for safety Awareness of Errors: Assistance required to identify errors made Bed Mobility Supine to Sit: Mod assist (x2) Other: HOB elevated, cues for sequencing and tech. Utilized gait belt to act as leg repairer controller tester; instructed pt to lift R leg to EOB with cues for tech. Pt required A to progress trunk/hips. Pt instructed with cues for sequencing and emonstration to scoot hips out to EOB with R leg kicked out with pt unable to progress. Pt in chair at end of session with call light within reach, ice aplied to R hip, RN aware. Transfers Sit to Stand: Max assist (x2) Stand to Sit: Max assist (x2) Other: Pt attempted STS x2. Pt required increased cues for proper hand placement and body mechanics. Pt instructed in rocking forward technique for momentum with poor carryover. Pt unsucessful on first attempt, able to come to full stand on 2nd attempt with increased time/effort and increased time to bring B hands to walker. Gait Gait Assistance: Min assist (x2) Assistive Device: Rolling walker Gait Distance: 15' x2 Limiting Factors to Gait: Fatigue, Weakness, Pain Other: Pt performed functional mobility with min A x2 for safety. Increased cues for proper body mechanics. BUE support on RW. Balance Sitting Balance: Static: Good Sitting Balance: Dynamic: Fair (+) Standing Balance: Static: Fair Standing Balance: Dynamic: Fair (-) Other: Pt sat unsupported on EOB for improved sitting balance/trunk control ~ 7 mins. BUE support on RW for transfers/functional mobility. Pt unsteady, however no LOB noted. Activity Tolerance Endurance: Tolerates 30 minutes activity with rest breaks Other: Pt required increased time/effort for all tasks. Pt plans to go home vs. IPR; education on role of therapy, benefits of IPR, discussion of home setup with education on strong recommendation for pt to go to [facility] as he currently is unsafe to go home. Plan Occupational Therapy Care Plan Occupational Therapy Care Plan (Active) Template: OT - Occupational Therapy Problem: Activity Tolerance Dates: Start: 01/19/24 Disciplines: OT Goal: Tolerate > 30 minutes of activity WITHOUT rest breaks Dates: Start: 01/19/24 Expected End: 02/09/24 Description: Goal Description: Disciplines: OT Outcomes Date/Time User Outcome 01/20/24 09Elpidio Goins SERVIN/L Progressing 01/19/24 1531 Nano Maher SERVIN/L Progressing Problem: Bed Mobility Dates: Start: 01/19/24 Disciplines: OT Goal: Patient will perform bed mobility with Modified [place] Dates: Start: 01/19/24 Expected End: 02/09/24 Description: Goal Description: Disciplines: OT Outcomes Date/Time User Outcome 01/20/24 09Elpidio Goins SERVIN/L Progressing 01/19/24 1531 CHARU HernandezA/Lanie Progressing Problem: Functional Mobility Dates: Start: 01/19/24 Disciplines: OT Goal: Patient will perform functional mobility with Modified [place] Dates: Start: 01/19/24 Expected End: 02/09/24 Description: Goal Description: Disciplines: OT Outcomes Date/Time User Outcome 01/20/24 09Elpidio Goins SERVIN/L Progressing 01/19/24 1531 CHARU HernandezA/Lanie Progressing Problem: Other (Customize) Dates: Start: 01/19/24 Disciplines: OT Goal: Improve Dates: Start: 01/19/24 Expected End: 02/09/24 Description: Goal Description: Complete ADLs [place] with AE/DME Disciplines: OT Outcomes Date/Time User Outcome 01/20/24 09Elpidio Goins SERVIN/L Progressing Problem: Sitting Balance Dates: Start: 01/19/24 Disciplines: OT Goal: Improve balance to good Dates: Start: 01/19/24 Expected End: 02/09/24 Description: Static Dynamic Disciplines: OT Outcomes Date/Time User Outcome 01/20/24 09Elpidio Goins SERVIN/L Progressing 01/19/24 1531 Nano Maher SERVIN/Lanie Progressing Problem: Standing Balance Dates: Start: 01/19/24 Disciplines: OT Goal: Improve balance to good Dates: Start: 01/19/24 Expected End: 02/09/24 Description: Static Dynamic Disciplines: OT Outcomes Date/Time User Outcome 01/20/24 0945 NALLELY Meneses Progressing 01/19/24 153 NALLELY Hernandez Progressing Problem: Strength Dates: Start: 01/19/24 Disciplines: OT Goal: Improve strength Dates: Start: 01/19/24 Expected End: 02/09/24 Description: Of extremity/ location: Tolerate bilat UE exercises to increase strength and endurancefor self care tasks. To facilitate: Disciplines: OT Outcomes Date/Time User Outcome 01/19/24 1531 NALLELY Hernandez Progressing Problem: Transfers Dates: Start: 01/19/24 Disciplines: OT Goal: Patient will perform transfers with Modified [place] Dates: Start: 01/19/24 Expected End: 02/09/24 Description: Goal Description: Disciplines: OT Outcomes Date/Time User Outcome 01/20/24 0945 NALLELY Meneses Progressing 01/19/24 153 NALLELY Hernandez Progressing Occupational Therapy Care Plan (Resolved) There are no resolved problems. Principal Problem: Closed fracture of right hip, initial encounter ([facility] [facility]) Active Problems: Closed displaced intertrochanteric fracture of right femur ([facility]) Associated attestation - Virgil Nunes OTR/L - 01/20/2024 1:17 PM EDT I have reviewed and agree with this note and education documentation for this visit. * PT/OT/THERMAL SURFACING MACHINE OPERATOR - Shahzrad Garcias PTA - 01/20/2024 8:17 AM EDT Physical Therapy Treatment Discharge Recommendations PT Recommendations: Inpatient Rehab Inpatient Rehab Criteria: All inpatient rehab criteria expected to be met (Pt would benefit from IPR stay to increased strength, safety, balance, and endurance, and overall functional mobility prior to safe D/C home. Pt currently requires 2 person assistance for bed mobility and transfers.) 6 Clicks: Basic Mobility Turning from your back to your side while in a flat bed without using bed rails?: A lot Moving from lying on your back to sitting on side of flat bed without using bed rails?: A lot Moving to and from bed to a chair (including w/c)?: A lot Standing up from a chair using your arms (e.g. w/c or bedside chair)?: A lot To walk in hospital room?: A lot Climbing 3-5 steps with a railing?: Total Scoring 6 Clicks: Basic Mobility Raw Score: 11 CMS G Code Modifier: CL Therapy Plan PT Treatment/Interventions: Functional transfer training, LE strengthening/ROM, Endurance training,Patient/family training, Equipment eval/education, Balance, Bed mobility, Gait training, Functionalactivities PT Frequency: Twice a Day PT Duration: LOS. Patient Response to Treatment: Slow progress, decreased activity tolerance Assessment Patient Assessment Therapy Problem List: Decreased ADL status, Decreased balance, Decreased endurance, Decreased high-level ADLs, Decreased mobility, Decreased safe judgement during ADL, Decreased self-care trans, Decreased UE strength, Decreased LE strength Patient Response to Treatment: Slow progress, decreased activity tolerance Mood/Affect: Appropriate for circumstances Rehab Prognosis: Good, With continued PT status post acute discharge Visit RN Communication: Yes Medical Record Reviewed: Yes PT Type of Visit: Treatment Precautions Activity: mobilize with assistance, okay for RT LE ROM as tolerated; ok to see per RN Equipment: gait belt, RW, palacios Weight Bearing Status: WBAT Rt LE Oxygen Used: room air Other: fall risk Pain Assessment Pain Assessment: 0-10 Pain Score: 8 Pain Type: Surgical pain Pain Location: Hip, Back, Leg Pain Orientation: Right, Lower Pain Intervention(s): Cold applied, Repositioned, Ambulation/increased activity Response to Interventions: Quiet, No grimacing Hearing / Speech / Vision Hearing: Within Functional Limits Speech: Within Functional Limits Cognition Attention Span: Attends with cues to redirect Orientation Level: Oriented X4 Following Commands: Follows one step commands with repetition Safety Judgment: Decreased awareness of need for safety Awareness of Errors: Assistance required to identify errors made Other: Pt required increased time to complete functional mobility tasks for education on safety, fall risk and prevention, safety following D/C, recommendations, and current mobility level Bed Mobility Supine to Sit: Mod assist (x2) Other: Pt completed bed mobility with MOD A x2 for trunk and BLE support. Education provided on sequeincing of bed mobility and use of bed railing for UE support. Pt required HOB to be elevated slightly to complete. Much increased time and effort to sit EOB. Use of gait belt as limb repairer controller tester for RLE with fair- poor carryover. Pt displayed decreased ability to scoot hips to EOB d/t pain in R hip and required assistance from com writer to complete. Pt denied dizziness with positonal change. Pt sitting in recliner at end of tx session with call light in reach, ice applie to R hip, and RN present withinthe room. Transfers Sit to Stand: Max assist (x2) Stand to Sit: Max assist (x2) Other: Pt attempted initial stand with use of RW for BUE support and attempted tp pull from RW handles to complete. First attempt was unsuccessful. Single Stayer Operator educated pt on use of momentum and safe handplacement/transition to RW, as well as BLE placement to imrpove technique. Pt then was able to achieve with MAX A x2. Increased time and effort noted to complete. Assist required to control descent when sitting. Gait Base of Support: Wide Pattern: Decreased jesusita, Antalgic gait, R Decreased heel strike, L Decreased heel strike, R Decreased foot clearance, L Decreased foot clearance, Forward trunk, R Decreased stance time, R Flexed knee (dec step height/length) Gait Assistance: Min assist (x2) Assistive Device: Rolling walker Gait Distance: 15' x2 Limiting Factors to Gait: Fatigue, Weakness, Pain Other: Pt completed ambulation within the room with MIN A x2 for safety and use of RW for BUE support. Education provided on sequencing of gait pattern with RW to improve technique. Unsteadiness present, however no overt LOB. Education provided on R TKE to reduce buckling during SLS. Balance Sitting Balance: Static: Good Sitting Balance: Dynamic: Fair (+) Standing Balance: Static: Fair Standing Balance: Dynamic: Fair (-) Other: Pt required BUE support in standing for stability. No overt LOB noted this session, however mild unsteadiness present d/t R knee buckling. Pt stood at the sink with intermittent single UE support without LOB. Pt sat unsupported in the recliner at at EOB with intermittent UE supprt for stability. Slight L lateral trunk lean present. Activity Tolerance Endurance: Tolerates 30 minutes activity with rest breaks Other: Pt required intermittent rest breaks secondary to fatigue, weakness, and decreased endurance. Inc time for education on fall risk and prevention following D/C. Pt is greatly limited by pain and decreased endurance at this time. Plan Physical Therapy Care Plan Physical Therapy Care Plan (Active) Template: PT - Physical Therapy Problem: Activity Tolerance Dates: Start: 01/19/24 Disciplines: PT Goal: Tolerate > 30 minutes of activity WITH rest breaks Dates: Start: 01/19/24 Expected End: 02/02/24 Description: Goal Description: Disciplines: PT Outcomes Date/Time User Outcome 01/20/24 1036 Shahrzad Garcias PTA Progressing 01/19/24 1721 Shahrzad Garcias PTA Progressing Goal Note filed on 01/20/24 1036 by Shahrzad Garcias PTA Evaluation of progress towards goal: Problem: Bed Mobility Dates: Start: 01/19/24 Disciplines: PT Goal: Patient will perform bed mobility with Minimum Assist Dates: Start: 01/19/24 Expected End: 02/02/24 Description: Goal Description: Disciplines: PT Outcomes Date/Time User Outcome 01/20/24 1036 Shahrzad Garcias PTA Progressing 01/19/24 172 Shahrzad Garcias PTA Progressing Goal Note filed on 01/20/24 1036 by Shahrzad Garcias PTA Evaluation of progress towards goal: Problem: Gait Dates: Start: 01/19/24 Disciplines: PT Goal: Patient will perform gait with Contact Guard Dates: Start: 01/19/24 Expected End: 02/02/24 Description: With_rw___,__150__feet Goal Description: Disciplines: PT Outcomes Date/Time User Outcome 01/20/24 1036 Shahrzad Garcias PTA Progressing 01/19/24 1721 Shahrzad Garcias PTA Progressing Goal Note filed on 01/20/24 1036 by Shahrzad Garcias PTA Evaluation of progress towards goal: Problem: Standing Balance Dates: Start: 01/19/24 Disciplines: PT Goal: Improve balance to good Dates: Start: 01/19/24 Expected End: 02/02/24 Description: Static Dynamic- good (-) with support of rw Disciplines: PT Outcomes Date/Time User Outcome 01/20/24 1036 Shahrzad Garcias PTA Progressing 01/19/24 1721 Shahrzad Garcias PTA Progressing Goal Note filed on 01/20/24 1036 by Shahrzad Garcias PTA Evaluation of progress towards goal: Problem: Strength Dates: Start: 01/19/24 Disciplines: PT Goal: Improve strength Dates: Start: 01/19/24 Expected End: 02/02/24 Description: Of extremity/ location:Complete 20 reps bilat UE/LE ex's To facilitate: Disciplines: PT Outcomes Date/Time User Outcome 01/20/24 1036 Shahrzad Garcias PTA Progressing 01/19/24 1721 Shahrzad Garcias PTA Progressing Goal Note filed on 01/20/24 1036 by Shahrzad Garcias PTA Evaluation of progress towards goal: Problem: Transfers Dates: Start: 01/19/24 Disciplines: PT Goal: Patient will perform transfers with Contact Guard Dates: Start: 01/19/24 Expected End: 02/02/24 Description: Goal Description: Disciplines: PT Outcomes Date/Time User Outcome 01/20/24 1036 Shahrzad Garcias PTA Progressing 01/19/24 1721 Shahrzad Garcias PTA Progressing Goal Note filed on 01/20/24 1036 by Shahrzad Garcias PTA Evaluation of progress towards goal: Physical Therapy Care Plan (Resolved) There are no resolved problems. Principal Problem: Closed fracture of right hip, initial encounter ([facility] Active Problems: Closed displaced intertrochanteric fracture of right femur ([facility]) Associated attestation - Brady Jauregui PT - 01/20/2024 3:30 PM EDT I have reviewed and agree with this note and education documentation for this visit. * Discharge Planning Note - Jackie Caal - 01/19/2024 3:48 PM EDT DISCHARGE PLANNING NOTE Referral to [address] [place] (P# ; F# ); [place] (P#[phone] ; F# [phone]) and [facility] ([place] P# ; F# ) ([place], [place] P# ; F#) * PT/OT/THERMAL SURFACING MACHINE OPERATOR - MALATHI Hernandez/Lanie - 01/19/2024 3:32 PM EDT Occupational Therapy Treatment (BID) Discharge Recommendations OT Recommendations : Inpatient Rehab 6 Clicks: Daily Activity Putting on and taking off regular lower body clothing?: A lot Bathing (including washing, rinsing, drying)?: A lot Toileting, which includes using toilet, bedpan or urinal?: Total (palacios) Putting on and taking off regular upper body clothing?: A little Taking care of personal grooming such as brushing teeth?: A little Eating meals?: None Scoring Daily Activity Raw Score: 15 CMS G Code Modifier: CK OT Treatment/Interventions: ADL retraining, Functional transfer training, UE strengthening/ROM, LE strengthening/ROM, Endurance training, Patient/family training, Equipment eval/education, Balance, Bed mobility, Compensatory technique education, Functional activities OT Frequency: Twice a Day OT Duration: Until discharge Assessment Patient Assessment Therapy Problem List: Decreased ADL status, Decreased balance, Decreased endurance, Decreased high-level ADLs, Decreased mobility, Decreased safe judgement during ADL, Decreased self-care trans, Decreased UE strength, Decreased LE strength Patient Response to Treatment: Slow progress, decreased activity tolerance Mood/Affect: Appropriate for circumstances Rehab Prognosis: Good, With continued OT status post acute discharge Visit RN Communication: Yes Medical Record Reviewed: Yes OT Type of Visit: Treatment (BID) Precautions Activity: mobilize with assistance, okay for RT LE ROM as tolerated Equipment: gait belt, RW, palacios Weight Bearing Status: WBAT Rt LE Other: fall risk Pain Assessment Pain Assessment: 0-10 Pain Score: 9 Pain Type: Surgical pain Pain Location: Hip Pain Orientation: Right Pain Intervention(s): Cold applied, Repositioned, Ambulation/increased activity Response to Interventions: Pain unchanged ADL / IADL Other: NT with PM session. pt stated he completed tasks earlier in the day with nursing staff. Home Management - IADL Other: NT with PM session. pt stated he completed tasks earlier in the day with nursing staff. Cognition Orientation Level: Oriented X4 Bed Mobility Supine to Sit: Mod assist (x2) Other: HOB slightly elevated and use of rail required. pt educated on task sequencing and proper body mechanics to help ease I. instructed pt to utilize L LE to assist with R LE advancement during task. poor return noted. pt left in the chair at end of session with call light within reach and with RN aware. Transfers Sit to Stand: Min assist (x2) Stand to Sit: Min assist (x2) Other: min A x2 required for all transfers. cues provided for proper tech and safe hand placement. increased time and effort required to complete transition. no LOB noted upon standing. Gait Gait Assistance: Min assist (x2) Assistive Device: Rolling walker Gait Distance: 3ft + 5ft Limiting Factors to Gait: Fatigue, Weakness, Pain Other: min A x2 required for safety and stability. cues provided for sequencing and proper body mechanics to assist with decreasing R knee buckling. increased time and effort required to complete. ptunsteady, however no major LOB noted. Balance Sitting Balance: Static: Good Sitting Balance: Dynamic: Fair (+) Standing Balance: Static: Fair Standing Balance: Dynamic: Fair (-) Other: pt requires B UE support from RW with functional mobility and with min A x2 required. no major LOB demo during session. Activity Tolerance Endurance: Tolerates 30 minutes activity with rest breaks Other: fair overall tolerance. pt is limited by weakness, fatigue, pain, and decreased activity tolerance. 01/19/24 1437 UE ROM UE ROM exercises performed? Yes Scapular retraction x Shoulder flexion/extension x Shoulder horizontal abduction/adduction x Other B UE AROM Repetitions x10 Plan Occupational Therapy Care Plan Occupational Therapy Care Plan (Active) Template: OT - Occupational Therapy Problem: Activity Tolerance Dates: Start: 01/19/24 Disciplines: OT Goal: Tolerate > 30 minutes of activity WITHOUT rest breaks Dates: Start: 01/19/24 Expected End: 02/09/24 Description: Goal Description: Disciplines: OT Outcomes Date/Time User Outcome 01/19/24 1531 MALATHI Hernandez/Lanie Progressing Problem: Bed Mobility Dates: Start: 01/19/24 Disciplines: OT Goal: Patient will perform bed mobility with Modified [place] Dates: Start: 01/19/24 Expected End: 02/09/24 Description: Goal Description: Disciplines: OT Outcomes Date/Time User Outcome 01/19/24 153Yohana MaherCHARUA/Lanie Progressing Problem: Functional Mobility Dates: Start: 01/19/24 Disciplines: OT Goal: Patient will perform functional mobility with Modified [place] Dates: Start: 01/19/24 Expected End: 02/09/24 Description: Goal Description: Disciplines: OT Outcomes Date/Time User Outcome 01/19/24 153Yohana AntonioCHARU fieldA/Lanie Progressing Problem: Other (Customize) Dates: Start: 01/19/24 Disciplines: OT Goal: Improve Dates: Start: 01/19/24 Expected End: 02/09/24 Description: Goal Description: Complete ADLs [place] with AE/DME Disciplines: OT Problem: Sitting Balance Dates: Start: 01/19/24 Disciplines: OT Goal: Improve balance to good Dates: Start: 01/19/24 Expected End: 02/09/24 Description: Static Dynamic Disciplines: OT Outcomes Date/Time User Outcome 01/19/24 Shahnaz Mcgill CHARU MaherA/Lanie Progressing Problem: Standing Balance Dates: Start: 01/19/24 Disciplines: OT Goal: Improve balance to good Dates: Start: 01/19/24 Expected End: 02/09/24 Description: Static Dynamic Disciplines: OT Outcomes Date/Time User Outcome 01/19/24 153Yohana Mcgill CHARU MaherA/Lanie Progressing Problem: Strength Dates: Start: 01/19/24 Disciplines: OT Goal: Improve strength Dates: Start: 01/19/24 Expected End: 02/09/24 Description: Of extremity/ location: Tolerate bilat UE exercises to increase strength and endurancefor self care tasks. To facilitate: Disciplines: OT Outcomes Date/Time User Outcome 01/19/24 Shahnaz Mcgill MALATHI Maher/Lanie Progressing Problem: Transfers Dates: Start: 01/19/24 Disciplines: OT Goal: Patient will perform transfers with Modified [place] Dates: Start: 01/19/24 Expected End: 02/09/24 Description: Goal Description: Disciplines: OT Outcomes Date/Time User Outcome 01/19/24 Shahnaz Mcgill MALATHI Maher/Lanie Progressing Occupational Therapy Care Plan (Resolved) There are no resolved problems. Principal Problem: Closed fracture of right hip, initial encounter ([facility]) Active Problems: Closed displaced intertrochanteric fracture of right femur (CMS-HCC) Associated attestation - Virgil Nunes OTR/Lanie - 01/20/2024 1:17 PM EDT I have reviewed and agree with this note and education documentation for this visit. * Discharge Planning Note - JEWEL Crenshaw - 01/19/2024 3:04 PM EDT DISCHARGE PLANNING NOTE DC plan will be home with home care, PT/OT rec IPR. SW discussed with pt and reviewed options for IP rehab. Pt refusing rehab, pt wants to go home, pt feels he does not need to be in a facility, he has family and friends that can assist him as needed. Pt would like home care arranged. Referral's were placed to [address] (1st choice) & [facility], await acceptance. - JEWEL Crenshaw 01/19/24 3:08 PM * PT/OT/THERMAL SURFACING MACHINE OPERATOR - Shahrzad Garcias PTA - 01/19/2024 1:55 PM EDT Physical Therapy Treatment (BID) Discharge Recommendations PT Recommendations: Inpatient Rehab 6 Clicks: Basic Mobility Turning from your back to your side while in a flat bed without using bed rails?: A lot Moving from lying on your back to sitting on side of flat bed without using bed rails?: A lot Moving to and from bed to a chair (including w/c)?: A lot Standing up from a chair using your arms (e.g. w/c or bedside chair)?: A lot To walk in hospital room?: A lot Climbing 3-5 steps with a railing?: Total Scoring 6 Clicks: Basic Mobility Raw Score: 11 [facility] G Code Modifier: CL Therapy Plan PT Treatment/Interventions: Functional transfer training, LE strengthening/ROM, Endurance training,Patient/family training, Equipment eval/education, Balance, Bed mobility, Gait training, Functionalactivities PT Frequency: Twice a Day PT Duration: LOS. Patient Response to Treatment: Slow progress, decreased activity tolerance Assessment Patient Assessment Therapy Problem List: Decreased ADL status, Decreased balance, Decreased endurance, Decreased high-level ADLs, Decreased mobility, Decreased safe judgement during ADL, Decreased self-care trans, Decreased UE strength, Decreased LE strength Patient Response to Treatment: Slow progress, decreased activity tolerance Mood/Affect: Appropriate for circumstances Rehab Prognosis: Good, With continued PT status post acute discharge Visit RN Communication: Yes Medical Record Reviewed: Yes PT Type of Visit: Treatment (BID) Precautions Activity: ok to tx per RN- mobilize with assistance, okay for RT LE ROM as tolerated Equipment: gait belt, RW, palacios Weight Bearing Status: WBAT Rt LE Oxygen Used: room air Other: fall risk Pain Assessment Pain Assessment: 0-10 Pain Score: 9 Pain Type: Surgical pain Pain Location: Hip Pain Orientation: Right Pain Intervention(s): Cold applied, Repositioned, Ambulation/increased activity Response to Interventions: Quiet, No grimacing Cognition Overall Cognitive Status: Exceptions to Within Functional Limits Attention Span: Attends with cues to redirect Orientation Level: Oriented X4 Following Commands: Follows one step commands with repetition Safety Judgment: Decreased awareness of need for safety Awareness of Errors: Assistance required to identify errors made Bed Mobility Supine to Sit: Mod assist (x2) Other: Pt completed bed mobility with HOB elevated and use of bed railing for UE support. MAX cueing provided for sequenicng and technique to transition. Pt had difficutly following direction/cueing from com writer. Visual demo and tactile cueing provided to improve carryover. Cued pt in use of LLE to support RLE for advacing limb OOB- difficulty noted> MOD A x2 required for trunk and BLE support OOB. Pt denied dizziness with positional change. Pt sitting in recliner at end of tx session with call light in reach, all needs met, RN aware. Educated pt on use of call light for assistance instead of attempting to get up on his own at this time. Transfers Sit to Stand: Min assist (x2) Stand to Sit: Min assist (x2) Other: Pt required MIN A x2 for trunk support and safety during transfers. Pt displayed mild posterior trunk lean with cueing to shift weight forward to correct. Increased time and effort to complete. Pt attempted to pull from RW handles initially- required cueing for safe hand placement and transition to reduce fall risk. Gait Base of Support: Wide Pattern: Decreased jesusita, Antalgic gait, R Decreased heel strike, L Decreased heel strike, R Decreased foot clearance, L Decreased foot clearance, Forward trunk, R Decreased stance time, R Flexed knee Gait Assistance: Min assist (x2) Assistive Device: Rolling walker Gait Distance: 3', 5' (chair follow for safety) Limiting Factors to Gait: Fatigue, Weakness, Pain Other: Pt completed 2x short bouts of ambulation within room with MIN A x2 for safety and use of RWfor BUE support. Education provided on gait sequenicng with visual demo for improving carryover. Ptdisplayed R knee buckling during stance phase- educated pt on R TKE during SLS to reduce buckling with fair return. Pt displayed unsteadiness during ambulation attempts requiring chair follow for safety, however no overt LOB this PM. 01/19/24 1355 LE Seated LE seated exercises performed? Yes Ankle pumps x Long arc quads x Seated marching x Other Glute sets, VVT cues for technique and sequencing. AAROM as needed for RLE Repetitions 15x Balance Sitting Balance: Static: Good Sitting Balance: Dynamic: Fair (+) Standing Balance: Static: Fair Standing Balance: Dynamic: Fair (-) Other: Pt required BUE support on RW handles in standing. Minor Posterior LOB upon sitting EOB withMIN A to correct. Education provided on scooting forward to allow BLEs to rest on the floor for incstability. Activity Tolerance Endurance: Tolerates 30 minutes activity with rest breaks Other: Rest breaks provided intermittently during tx session secondary to fatigue, weakness, and decreased endurance. Pt required inc time to complete all therapy tasks. Plan Physical Therapy Care Plan Physical Therapy Care Plan (Active) Template: PT - Physical Therapy Problem: Activity Tolerance Dates: Start: 01/19/24 Disciplines: PT Goal: Tolerate > 30 minutes of activity WITH rest breaks Dates: Start: 01/19/24 Expected End: 02/02/24 Description: Goal Description: Disciplines: PT Outcomes Date/Time User Outcome 01/19/241720 Shahrzad Garcias PTA Progressing Goal Note filed on 01/19/241720 by Shahrzad Garcias PTA Evaluation of progress towards goal: Problem: Bed Mobility Dates: Start: 01/19/24 Disciplines: PT Goal: Patient will perform bed mobility with Minimum Assist Dates: Start: 01/19/24 Expected End: 02/02/24 Description: Goal Description: Disciplines: PT Outcomes Date/Time User Outcome 01/19/241720 Shahrzad Garcias PTA Progressing Goal Note filed on 01/19/241720 by Shahrzad Garcias PTA Evaluation of progress towards goal: Problem: Gait Dates: Start: 01/19/24 Disciplines: PT Goal: Patient will perform gait with Contact Guard Dates: Start: 01/19/24 Expected End: 02/02/24 Description: With_rw___,__150__feet Goal Description: Disciplines: PT Outcomes Date/Time User Outcome 01/19/241720 Shahrzad Garcias PTA Progressing Goal Note filed on 01/19/241720 by Shahrzad Garcias PTA Evaluation of progress towards goal: Problem: Standing Balance Dates: Start: 01/19/24 Disciplines: PT Goal: Improve balance to good Dates: Start: 01/19/24 Expected End: 02/02/24 Description: Static Dynamic- good (-) with support of rw Disciplines: PT Outcomes Date/Time User Outcome 01/19/241720 Shahrzad Garcias PTA Progressing Goal Note filed on 01/19/241720 by Shahrzad Garcias PTA Evaluation of progress towards goal: Problem: Strength Dates: Start: 01/19/24 Disciplines: PT Goal: Improve strength Dates: Start: 01/19/24 Expected End: 02/02/24 Description: Of extremity/ location:Complete 20 reps bilat UE/LE ex's To facilitate: Disciplines: PT Outcomes Date/Time User Outcome 01/19/241720 Shahrzad Garcias PTA Progressing Goal Note filed on 01/19/241720 by Shahrzad Garcias PTA Evaluation of progress towards goal: Problem: Transfers Dates: Start: 01/19/24 Disciplines: PT Goal: Patient will perform transfers with Contact Guard Dates: Start: 01/19/24 Expected End: 02/02/24 Description: Goal Description: Disciplines: PT Outcomes Date/Time User Outcome 01/19/241720 Shahrzad Garcias PTA Progressing Goal Note filed on 01/19/241720 by Shahrzad Garcias PTA Evaluation of progress towards goal: Physical Therapy Care Plan (Resolved) There are no resolved problems. Principal Problem: Closed fracture of right hip, initial encounter ([facility]) Active Problems: Closed displaced intertrochanteric fracture of right femur ([facility]) Associated attestation - Brady Jauregui, PT - 01/20/2024 3:30 PM EDT I have reviewed and agree with this note and education documentation for this visit. * PT/OT/THERMAL SURFACING MACHINE OPERATOR - Lindsay Infante, PT - 01/19/2024 1:52 PM EDT Physical Therapy Evaluation Discharge Recommendations PT Recommendations: Inpatient Rehab Inpatient Rehab Criteria: All inpatient rehab criteria expected to be met Therapy Plan Need for skilled Physical Therapy to address deficits in functional mobility due to a status decline resulting from hospitalization. Pt to [facility] via EMS with Rt LE pain. Pt reported that he had tripped over a dog and landed on Rt knee. Pt found to have a Rt IT nondisplaced fx 01/17 pt underwent IM nailing Rt IT hip fx Pt is WBAT Rt LE. ROM as nabil. Chief Complaint Patient presents with Hip Injury Past Medical History: Diagnosis Date Asthma Back pain Chronic cough from lisinopril Chronic pain disorder Colon cancer ([facility]) COPD (chronic obstructive pulmonary disease) ([facility]) Depression Diabetes mellitus type 2, controlled ([facility]) Fibromyalgia, primary Fracture of right hip, closed, initial encounter ([facility]) 01/17/2024 GERD (gastroesophageal reflux disease) Hyperlipidemia Hypertension Insulin-treated type 2 diabetes mellitus ([facility]) Joint pain Kidney stones Liver disease Low back pain Neck pain Obesity Osteoarthritis Visual impairment Past Surgical History: Procedure Laterality Date BACK SURGERY COLON SURGERY resection, 2018, [facility] DAVINCI REPAIR HERNIA VENTRAL N/A 10/27/2021 Performed by Ridge Cedillo MD at [facility] DENTAL SURGERY pt had all teeth removed HERNIA REPAIR x's 2 INSERTION INTRAMEDULLARY NAIL FEMUR-TFNA HIP FX Right 01/18/2024 Performed by Ang Figueroa MD at [facility] SURGERY 2007 foot, infected foot 6 Clicks: Basic Mobility Turning from your back to your side while in a flat bed without using bed rails?: A lot Moving from lying on your back to sitting on side of flat bed without using bed rails?: A lot Moving to and from bed to a chair (including w/c)?: A lot Standing up from a chair using your arms (e.g. w/c or bedside chair)?: A lot To walk in hospital room?: A lot Climbing 3-5 steps with a railing?: Total Scoring 6 Clicks: Basic Mobility Raw Score: 11 CMS G Code Modifier: CL Recommended Consults: PM&R consult PT Treatment/Interventions: Functional transfer training, LE strengthening/ROM, Endurance training,Patient/family training, Equipment eval/education, Balance, Bed mobility, Gait training, Functionalactivities PT Frequency: Twice a Day PT Duration: LOS. Patient Response to Treatment: Tolerated evaluation without adverse reaction Assessment Patient Assessment Therapy Problem List: Decreased ADL status, Decreased balance, Decreased endurance, Decreased high-level ADLs, Decreased mobility, Decreased safe judgement during ADL, Decreased self-care trans, Decreased UE strength, Decreased LE strength Patient Response to Treatment: Tolerated evaluation without adverse reaction Mood/Affect: Appropriate for circumstances Rehab Prognosis: With continued PT status post acute discharge, Good Visit RN Communication: Yes Medical Record Reviewed: Yes PT Type of Visit: Evaluation Precautions Activity: mobilize with assistance, okay for RT LE ROM as tolerated Equipment: gait belt, RW Weight Bearing Status: WBAT Rt LE Other: fall risk Pain Assessment Pain Assessment: 0-10 Pain Score: 9 Pain Type: Surgical pain Pain Location: Hip Pain Orientation: Right Pain Intervention(s): Cold applied, Repositioned, Ambulation/increased activity Response to Interventions: Pain unchanged Home Living Type of Home: Apartment (1st floor) Stairs to Enter: 1 Hand Rails: None Bathroom Shower/Tub: Tub/shower unit Bathroom Toilet: Standard (with support) Bathroom Equipment: Hand-held shower (may have a shower chair) Prior Function Lives With: Alone Receives Help From: (pt states his neighbor could assist some) Level of Mobility: Independent with ADLs and functional transfers or gait Homemaking Assistance: Independent Other: Pt independent without devices prior. Pt trejo snot drive so friends assist with transportation Hearing / Speech / Vision Hearing: Within Functional Limits Speech: Within Functional Limits Cognition Overall Cognitive Status: Within Functional Limits Sensation Overall Sensation Status: Consistent with premorbid status (Pt has neuropathy in bilat feet. He also has C-spine issues that sometimes results in tingling in his hands.) Bed Mobility Supine to Sit: Max assist (x2, HOB up and asist with LE's and at the trunk) Sit to Supine: (NT this session as pt remaine dup in recliner with call light at hand) Transfers Sit to Stand: Mod assist (x 2 with bed extremely elevated, attempted wihtou bed raised and was unsuccessful.) Stand to Sit: Mod assist Other: Provided pt with cues for safe technique and grant dplacement Gait Gait Assistance: Min assist (x2) Assistive Device: Rolling walker Gait Distance: Pt went 3' bed to chair with increased effort. Pt needed cues for gait pattern and sequence. Physical assist provided to manage rw and sometimes to assist advancing RLE initially. Limiting Factors to Gait: Fatigue, Pain Balance Sitting Balance: Static: Good (-) Sitting Balance: Dynamic: Fair (+) Standing Balance: Static: Fair Standing Balance: Dynamic: Fair (-) Other: Standing balance with RW for support RLE Assessment: (Pt not able to overcome gravity at the hip or knee, DF 4-/5) LLE Assessment: (Grossly 4/5) Activity Tolerance Endurance: Tolerates >30 minutes activity with rest breaks Other: Increased time and effort by pt to complete tasks. Plan Physical Therapy Care Plan Physical Therapy Care Plan (Active) Template: PT - Physical Therapy Problem: Activity Tolerance Dates: Start: 01/19/24 Disciplines: PT Goal: Tolerate > 30 minutes of activity WITH rest breaks Dates: Start: 01/19/24 Expected End: 02/02/24 Description: Goal Description: Disciplines: PT Problem: Bed Mobility Dates: Start: 01/19/24 Disciplines: PT Goal: Patient will perform bed mobility with Minimum Assist Dates: Start: 01/19/24 Expected End: 02/02/24 Description: Goal Description: Disciplines: PT Problem: Gait Dates: Start: 01/19/24 Disciplines: PT Goal: Patient will perform gait with Contact Guard Dates: Start: 01/19/24 Expected End: 02/02/24 Description: With_rw___,__150__feet Goal Description: Disciplines: PT Problem: Standing Balance Dates: Start: 01/19/24 Disciplines: PT Goal: Improve balance to good Dates: Start: 01/19/24 Expected End: 02/02/24 Description: Static Dynamic- good (-) with support of rw Disciplines: PT Problem: Strength Dates: Start: 01/19/24 Disciplines: PT Goal: Improve strength Dates: Start: 01/19/24 Expected End: 02/02/24 Description: Of extremity/ location:Complete 20 reps bilat UE/LE ex's To facilitate: Disciplines: PT Problem: Transfers Dates: Start: 01/19/24 Disciplines: PT Goal: Patient will perform transfers with Contact Guard Dates: Start: 01/19/24 Expected End: 02/02/24 Description: Goal Description: Disciplines: PT Physical Therapy Care Plan (Resolved) There are no resolved problems. Principal Problem: Closed fracture of right hip, initial encounter ([facility]) Active Problems: Closed displaced intertrochanteric fracture of right femur ([facility]) * PT/OT/THERMAL SURFACING MACHINE OPERATOR - Thalia Han OTR/Lanie - 01/19/2024 1:03 PM EDT Occupational Therapy Evaluation Discharge Recommendations OT Recommendations : Inpatient Rehab Inpatient Rehab Criteria: All inpatient rehab criteria expected to be met 6 Clicks: Daily Activity Putting on and taking off regular lower body clothing?: A lot Bathing (including washing, rinsing, drying)?: A lot Toileting, which includes using toilet, bedpan or urinal?: A lot Putting on and taking off regular upper body clothing?: A little Taking care of personal grooming such as brushing teeth?: A little Eating meals?: None Scoring Daily Activity Raw Score: 16 CMS G Code Modifier: CK Therapy Plan Need for skilled Occupational Therapy to address deficits in ADL independence and functional mobility due to a status decline resulting from hospitalization. Pt to [facility] via EMS with Rt LE pain. Pt reported that he had tripped over a dog and landed on Rt knee. Pt found to have a Rt IT nondisplaced fx 01/17 pt underwent IM nailing Rt IT hip fx Pt is WBAT Rt LE Scoring Daily Activity Raw Score: 16 CMS G Code Modifier: CK Past Medical History: Diagnosis Date Asthma Back pain Chronic cough from lisinopril Chronic pain disorder Colon cancer ([facility]) COPD (chronic obstructive pulmonary disease) ([facility]) Depression Diabetes mellitus type 2, controlled ([facility]) Fibromyalgia, primary Fracture of right hip, closed, initial encounter ([facility]) 01/17/2024 GERD (gastroesophageal reflux disease) Hyperlipidemia Hypertension Insulin-treated type 2 diabetes mellitus ([facility]) Joint pain Kidney stones Liver disease Low back pain Neck pain Obesity Osteoarthritis Visual impairment Past Surgical History: Procedure Laterality Date BACK SURGERY COLON SURGERY resection, 2018, [facility] DAVINCI REPAIR HERNIA VENTRAL N/A 10/27/2021 Performed by Ridge Cedillo MD at [facility] DENTAL SURGERY pt had all teeth removed HERNIA REPAIR x's 2 INSERTION INTRAMEDULLARY NAIL FEMUR-TFNA HIP FX Right 01/18/2024 Performed by Ang Figueroa MD at [facility] 2007 foot, infected foot Chief Complaint Patient presents with Hip Injury OT Treatment/Interventions: ADL retraining, Functional transfer training, UE strengthening/ROM, LE strengthening/ROM, Endurance training, Patient/family training, Equipment eval/education, Balance, Bed mobility, Compensatory technique education, Functional activities OT Frequency: Twice a Day OT Duration: Until discharge Assessment Patient Assessment Therapy Problem List: Decreased ADL status, Decreased balance, Decreased endurance, Decreased high-level ADLs, Decreased mobility, Decreased safe judgement during ADL, Decreased self-care trans, Decreased UE strength, Decreased LE strength Patient Response to Treatment: Tolerated evaluation without adverse reaction Mood/Affect: Appropriate for circumstances Rehab Prognosis: Good, With continued OT status post acute discharge Visit RN Communication: Yes Medical Record Reviewed: Yes OT Type of Visit: Evaluation Precautions Activity: mobilize with assistance, okay for RT LE ROM as tolerated Equipment: gait belt, RW Weight Bearing Status: WBAT Rt LE Oxygen Used: room air Other: fall risk Pain Assessment Pain Assessment: 0-10 Pain Score: 9 Pain Type: Surgical pain Pain Location: Hip Pain Orientation: Right Pain Intervention(s): Cold applied, Repositioned, Ambulation/increased activity Response to Interventions: Pain unchanged Home Living Type of Home: Apartment (1st floor) Stairs to Enter: 1 Hand Rails: None Stairs in Home: 0 Bathroom Shower/Tub: Tub/shower unit Bathroom Toilet: Standard (with support) Bathroom Equipment: Hand-held shower (may have a shower chair) Other : No AE/DME needs 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 Friends assist as needed ADL / IADL Hand Dominance: Right Where Assessed: Edge of bed, Chair Eating Assistance: Independent Grooming Assistance: Independent Bathing/Showering Assistance: Mod assist Toilet/Commode Assistance: Max assist UE Dressing Assistance: Min assist LE Dressing Assistance: Max assist Footwear Assistance: Total assist Other: Pt limited by weakness, fatigue, pain and decreased balance. Pt requires increased time and effort. Educated on self care/dressing techniques, AE/DME and safety during ADLs. Home Management - IADL Other: Pt limited by weakness, fatigue, pain and decreased balance. Pt requires increased time and effort. Educated on self care/dressing techniques, AE/DME and safety during ADLs. Hearing / Speech / Vision Hearing: Within Functional Limits Speech: Within Functional Limits Cognition Overall Cognitive Status: Within Functional Limits Sensation Overall Sensation Status: Consistent with premorbid status (pt has neuropathy in bilat feet. Pt also has a buldging disc in cspine that leads to numbness and tingling in Lt hand/UE) Bed Mobility Supine to Sit: Max assist (x 2. Assist with trunk and lower body. Increased time, effort and cuing required. HOB elevated and use of bedrail) Sit to Supine: (Pt in chair witgh call light in reach.) Transfers Sit to Stand: Mod assist (x 2 with bed extremely elevated) Stand to Sit: Mod assist Other: Cues for hand placement and technique. Increased time, effort and encouragement required. Gait Gait Assistance: Min assist (x 2) Assistive Device: Rolling walker Gait Distance: 3' bed to chair. Assist for balance and to manuver walker. Cues for sequencing. Limiting Factors to Gait: Fatigue, Pain Balance Sitting Balance: Static: Good (-) Sitting Balance: Dynamic: Fair (+) Standing Balance: Static: Fair Standing Balance: Dynamic: Fair (-) Other: Standing balance with RW for support RUE Assessment: Within Functional Limits LUE Assessment: (shoulder chronic pain. shoulder and elbow 4-/5. Cycle Consultant 3+/5) Activity Tolerance Endurance: Tolerates >30 minutes activity with rest breaks Other: Pt required increased time and effort due to pain Plan Occupational Therapy Care Plan Occupational Therapy Care Plan (Active) Template: OT - Occupational Therapy Problem: Activity Tolerance Dates: Start: 01/19/24 Disciplines: OT Goal: Tolerate > 30 minutes of activity WITHOUT rest breaks Dates: Start: 01/19/24 Expected End: 02/09/24 Description: Goal Description: Disciplines: OT Problem: Bed Mobility Dates: Start: 01/19/24 Disciplines: OT Goal: Patient will perform bed mobility with Modified [place] Dates: Start: 01/19/24 Expected End: 02/09/24 Description: Goal Description: Disciplines: OT Problem: Functional Mobility Dates: Start: 01/19/24 Disciplines: OT Goal: Patient will perform functional mobility with Modified [place] Dates: Start: 01/19/24 Expected End: 02/09/24 Description: Goal Description: Disciplines: OT Problem: Other (Customize) Dates: Start: 01/19/24 Disciplines: OT Goal: Improve Dates: Start: 01/19/24 Expected End: 02/09/24 Description: Goal Description: Complete ADLs [place] with AE/DME Disciplines: OT Problem: Sitting Balance Dates: Start: 01/19/24 Disciplines: OT Goal: Improve balance to good Dates: Start: 01/19/24 Expected End: 02/09/24 Description: Static Dynamic Disciplines: OT Problem: Standing Balance Dates: Start: 01/19/24 Disciplines: OT Goal: Improve balance to good Dates: Start: 01/19/24 Expected End: 02/09/24 Description: Static Dynamic Disciplines: OT Problem: Strength Dates: Start: 01/19/24 Disciplines: OT Goal: Improve strength Dates: Start: 01/19/24 Expected End: 02/09/24 Description: Of extremity/ location: Tolerate bilat UE exercises to increase strength and endurancefor self care tasks. To facilitate: Disciplines: OT Problem: Transfers Dates: Start: 01/19/24 Disciplines: OT Goal: Patient will perform transfers with Modified [place] Dates: Start: 01/19/24 Expected End: 02/09/24 Description: Goal Description: Disciplines: OT Occupational Therapy Care Plan (Resolved) There are no resolved problems. Principal Problem: Closed fracture of right hip, initial encounter ([facility]) Active Problems: Closed displaced intertrochanteric fracture of right femur ([facility]) * Plan of Care - Lian Silva, ELIAS - 01/19/2024 12:34 PM EDT Problem: Pain Goal: Patient goal is pain score less than 4, able to rest, and participant in treatment plan as appropriate Description: INTERVENTIONS: 1. Encourage patient or legal charter representative to report early pain and ask for pain medicine when needed 2. Assess pain using appropriate pain scale and include the scale used when documenting 3. Administer analgesics based on type and severity of pain and evaluate response within appropriate time frame 4. Implement non-pharmacological measures as appropriate and evaluate response 5. Consider cultural and social influences on pain and pain management 6. Notify LIP if interventions ineffective or patient reports new pain 7. Monitor vital signs including pulse ox 8. Reassess pain per policy 9. Teach patient or legal charter representative interventions for comforting Outcome: Progressing Note: Evaluation of progress towards goal: Verbalizes adequate comfort level. Please see MAR for pain management orders. Problem: Safety Goal: Patient will be injury free during hospitalization Description: INTERVENTIONS: 1. Assess patient's risk for falls and implement fall prevention plan of care per policy 2. Provide and maintain a safe environment 3. Proper use of double Identifiers 4. Medication administration using the 5 rights 5. Hand hygiene 6. Specimens are labeled at the bedside 7. Instruct patient/ patient charter representative about use of safety devices 8. Include patient/ patient charter representative in decisions related to safety Outcome: Progressing Note: Evaluation of progress towards goal: Proper identifiers used with patient care and medicationadministration. Remains free of injury during shift. Problem: Glucose Imbalance Goal: Clinical indication of glucose balance is achieved Description: Patient's goal is: INTERVENTIONS 1. Monitor blood glucose levels as ordered 2. Administer medications as ordered 3. Notify physician of ineffective treatment plan Outcome: Progressing Note: Evaluation of progress towards goal: Lab values monitored per shift; replacements provided asneeded or required. Will continue to monitor electrolyte values. Problem: Moderate - High Risk Fall Score Description: [place] Fall Score of =/> 25 or indicated by [facility] Assessment Goal: Patient should be free from fall Description: Interventions: 1. [place] to environment 2. Hourly rounds addressing the 4 P's (Pain, Positioning, Possessions, Potty) 3. Clear area of hazards (spills, clutter, electrical cords, unnecessary equipment) 4. Place equipment (bed & TV controls, call light, phone, urinal) within reach 5. Encourage patient to wear glasses and hearing aides as appropriate 6. Maintain bed in lowest position 7. Lock wheels on bed/wheelchair 8. Provide adequate lighting, including night light 9. Assess need for additional bedding, food/fluids, pain med's prior to sleep/routinely 10. Provide gripper slippers or personal non-skid footwear 11. Teach patient and patient charter representative to maintain environment for safety and engage in all aspects of fall prevention program 12. Remind patient to call for help before getting out of bed 13. Initiate bed/chair/exit alarms supportive devices as appropriate, (chair wedge, no-skid floor mat, raised edge mattress, hip protectors) 14. Locate patient bed assignment for optimal visualization 15. Evaluate and identify Safe Patient Handling Equipment needs 16. Provide supervision when out of bed or chair 17. Utilize gait belt as needed to assist with ambulation 18. Place adaptive equipment (cane, walker) within reach 19. Request patient charter representative bring adaptive equipment/mobility aids from home or obtain and provide as needed 20. Consult pharmacy regarding effects of med's affecting mobility, cognition, and alternatives 21. Obtain physician order for PT if risk factors associated with mobility are present 22. Obtain physician order for OT as appropriate 23. Utilize diversional activities 24. Educate patient and patient charter representative how to maintain a safe environment during visitationtimes (notify nurse prior to leaving bedside) 25. Consider appropriateness of medical or non-medical librarian 26. Set up voiding schedule as appropriate (every 2 hours) Outcome: Progressing Note: Evaluation of progress towards goal: Call light within reach. Remains free of fall or injury.Environment free of clutter. * Plan of Care - Carin Contreras RN - 01/18/2024 8:12 PM EDT Problem: Infection Goal: Absence of infection during hospitalization Description: Interventions: 1. Assess and monitor for signs and symptoms of infection 2. Monitor lab/diagnostic results 3. Monitor all insertion sites i.e., indwelling lines, tubes and drains 4. Monitor endotracheal (as able) and nasal secretions for changes in amount and color 5. Administer medications as ordered 6. Instruct and encourage patient and family to use good hand hygiene technique 7. Identify and instruct patient/patient charter representative in use of appropriate isolation precautionsfor identified infection/symptoms 8. Provide and discuss with patient/patient charter representative on educational MDRO sheet 9. Encourage and monitor nutritional status daily and consult maxillofacial pathology if indicated 10. Implement neutropenic guidelines as needed 11. Review exposure to history of communicable disease and recent travel history on admission 12. Encourage annual influenza vaccine 13. Encourage pneumonia vaccine Outcome: Progressing Note: Evaluation of progress towards goal: Patient verbalized understanding that proper handwashingis first line in infection prevention. No S/S of infection at this time. Problem: Moderate - High Risk Fall Score Description: [place] Fall Score of =/> 25 or indicated by [facility] Assessment Goal: Patient should be free from fall Description: Interventions: 1. [place] to environment 2. Hourly rounds addressing the 4 P's (Pain, Positioning, Possessions, Potty) 3. Clear area of hazards (spills, clutter, electrical cords, unnecessary equipment) 4. Place equipment (bed & TV controls, call light, phone, urinal) within reach 5. Encourage patient to wear glasses and hearing aides as appropriate 6. Maintain bed in lowest position 7. Lock wheels on bed/wheelchair 8. Provide adequate lighting, including night light 9. Assess need for additional bedding, food/fluids, pain med's prior to sleep/routinely 10. Provide gripper slippers or personal non-skid footwear 11. Teach patient and patient charter representative to maintain environment for safety and engage in all aspects of fall prevention program 12. Remind patient to call for help before getting out of bed 13. Initiate bed/chair/exit alarms supportive devices as appropriate, (chair wedge, no-skid floor mat, raised edge mattress, hip protectors) 14. Locate patient bed assignment for optimal visualization 15. Evaluate and identify Safe Patient Handling Equipment needs 16. Provide supervision when out of bed or chair 17. Utilize gait belt as needed to assist with ambulation 18. Place adaptive equipment (cane, walker) within reach 19. Request patient charter representative bring adaptive equipment/mobility aids from home or obtain and provide as needed 20. Consult pharmacy regarding effects of med's affecting mobility, cognition, and alternatives 21. Obtain physician order for PT if risk factors associated with mobility are present 22. Obtain physician order for OT as appropriate 23. Utilize diversional activities 24. Educate patient and patient charter representative how to maintain a safe environment during visitationtimes (notify nurse prior to leaving bedside) 25. Consider appropriateness of medical or non-medical librarian 26. Set up voiding schedule as appropriate (every 2 hours) Outcome: Progressing Note: Evaluation of progress towards goal: Patient remains fall free at this time, fall precautionsin place. * Op Note - Ang Figueroa MD - 01/18/2024 12:24 PM EDT DATE OF OPERATION: January 18, 2024 PREOPERATIVE DIAGNOSIS: 1. right intertrochanteric hip fracture. POSTOPERATIVE DIAGNOSIS: 1. Same OPERATION: 1. IM nail right intertrochanteric hip fracture.- 32510 SURGEON: Ang Figueroa MD WHITE SOURER: none ANESTHESIA: General. MEDICATIONS: ancef IV preop. ESTIMATED BLOOD LOSS: 150 mL. FLUIDS: 800 mL of crystalloid. URINE OUTPUT: NR DRAINS: None. COMPLICATIONS: None. SPECIMEN: None. DISPOSITION: PACU. FINDINGS: Soft compartments and probable pulse at the completion of the case. Brisk capillary refill. Stable in alignment rotation of the fracture. Safe extra-articular placement of all implants. PLAN: Weight bearing as tolerated on limb right lower extremity, 24 hours of antibiotics, DVT prophylaxis with Lovenox, PT/OT, monitor x-rays and labs, will need rehab placement most likely. Stable for disposition rehab when stable from a medical standpoint. Geriatric fracture program. IMPLANTS USED: Synthes 17 cm, 12 mm, 125 degrees, 95 mm lag screw with 36 mm distal locking bolt. HPI/INDICATION FOR SURGERY: Ruth Smith is a 53 y.o. male status post fall with complaints of right hip pain and inability to ambulate. Radiographic imaging identified a right intertrochanteric hip fracture indicating the patient for the aforementioned surgical stabilization procedure. The patient was seen and ev aluated and optimized by medical service for surgical intervention. I discussed the patient and family preoperatively risks, benefits, alternatives, surgical and nonsurgical management including bleeding, infection, , damage to normal structure, PE, DVT, VT, stroke, nonunion, malunion, chronicpain, arthrosis, arthritis, limited function, avascular necrosis of femoral head and need for further surgery. They understand the high mortality rate associated with hip fractures, limited function,walking, mortality and morbidity associated with hip fractures as well as the risks of recumbency (PE/DVT, UTI, decubitus ulcer, pneumonia). DESCRIPTION OF PROCEDURE: The patient was identified in the preoperative holding area. My initials were placed on operative extremity. Consent was deemed appropriate. he was taken to the operating room by the anesthesia staffwith controlled airway in the C-spine all times during the case. he was placed supine on the bed and underwent general anesthesia. Well-padded boots were placed on his limbs and he was placed on the fracture table in the standard fashion. he was secured to the table in standard fashion after care was taken to identify and paddle bony prominences. The arm was secured in the standard fashion. he was provisonally draped in plastic draping and then scrubbed with chlorhexidine scrub. he was prepped and draped in standard sterile orthopedic fashion. A time-out was performed. Everybody in the room stopped. Consent was read aloud and surgical procedure commenced. After antibiotics were confirmed and given, my extremity jeffrey was identified. Traction and internal rotation of his limb was performed. AP and lateral fluoroscopic imaging confirmed appropriate length, alignment, and rotation of the hip fracture. Through a percutaneous incision on the hip, a guidewire wire was placed in the appropriate position on the proximal femur for the t rochanteric nail insertion and inserted into bone. This was confirmed to he in an appropriate position on AP and lateral fluoroscopic imaging. Prior to entry reaming a stab incision was made over thelateral side of the femur and a drill bit was placed through the intertrochanteric area to vent thefemur as this was a nondisplaced fracture to try to lower the risk of Fat embolism syndrome. A 2 cm incision was made over top of this wire. The entry reamer was placed down to the greater trochanterand reaming to the level of lesser trochanter was performed. The ball-tipped guide kateryna was placed down to the femur and confirmed fluoroscopic imaging and reamed to 14mm. The short nail was then placed to the appropriate depth. AP and lateral fluoroscopic imaging confirmed appropriate placement of the nail at the level of the hip and through a second incision, the jig was placed for the proximal insertion of the wire. This was placed in center-center deep position in the proximal head/neck fragment. Length assessment was performed. Proximal preparation for the lag screw was performed and the aforementioned lag screw was placed in the deep center-center position, and verified to be in an extra-articular safe position. Compression across the fracture was obtained in the standard fashion andidentified under fluoroscopic localization. The distal interlocking screw was then placed through the jig in the standard fashion. Final AP and lateral fluoroscopic imaging in the hip fracture identified appropriate length, alignment, and rotation of her femur with fixation of her fracture. There was safe, extra-articular placement of the implants. All provisional wires reduction tools and jigs were removed. All wounds were copiously irrigated with normal saline. Deep layers were closed with #1Vicryl, 2-0 Vicryl and esmer for the skin. Sterile dressings were applied. The patient was removed from the fracture table in the standard fashion. Awaken from anesthesia in stable condition, transferred to PACU. All counts were correct at the end of the case. his has soft compartments and palpable pulses. Evidence of infection was not visualized at time of surgery. ANG FIGUEROA MD * Discharge Planning Note - JEWEL Crenshaw - 01/18/2024 10:29 AM EDT Images from the original note were not included. DISCHARGE PLANNING NOTE SW met with patient introduced self & role. Pt was alert, oriented during assessment. Pt was transferred to [facility] from [facility] where pt presented with leg and hip pain s/p fall. Pt states he fell over dog hitting his knee and hip on floor. Pt was found to have closed R hip fracture. Pt will be going to OR today for repair. Pt reports he lives alone in one story apartment with 1 step to enter home. Pt reports he was independent with ADl's and was not using any assistive devices for ambulation prior to admit. No current home care. Pt denied any concern getting or affording medications or food. Pt PCP and pharmacy verified. Pt denied any tobacco, illicit drug use and pt states he rarely drinks alcohol. DC plan TBD: pt would like to go home if possible. Will need therapy to evaluate post op. Pt does live alone, may need SNF vs IPR. SW did discuss possible SNF placement with pt and provided SNF list to pt. Will need transport at dc even if goes home. SW will continue to follow for dc needs. Services Requested: Services Requested Discharge Disposition: (TBD) Does the patient need discharge transportation arranged?: Yes Patient choice offered: Yes List Provided: Yes [facility]Port List Provided: Long-Term Facility Initial DC Assessment Completed: Yes Patient Goals: Goals: Goals <enter goal here> (pt-stated) Evaluation of progress towards goal: possible rehab placement vs home pending progress, recommendations and pt decision - JEWEL Crenshaw 01/18/24 10:33 AM * Plan of Care - Lian Silva RN - 01/18/2024 9:02 AM EDT Problem: Pain Goal: Patient goal is pain score less than 4, able to rest, and participant in treatment plan as appropriate Description: INTERVENTIONS: 1. Encourage patient or legal charter representative to report early pain and ask for pain medicine when needed 2. Assess pain using appropriate pain scale and include the scale used when documenting 3. Administer analgesics based on type and severity of pain and evaluate response within appropriate time frame 4. Implement non-pharmacological measures as appropriate and evaluate response 5. Consider cultural and social influences on pain and pain management 6. Notify LIP if interventions ineffective or patient reports new pain 7. Monitor vital signs including pulse ox 8. Reassess pain per policy 9. Teach patient or legal charter representative interventions for comforting Outcome: Progressing Note: Evaluation of progress towards goal: Verbalizes adequate comfort level. Please see MAR for pain management orders. Problem: Safety Goal: Patient will be injury free during hospitalization Description: INTERVENTIONS: 1. Assess patient's risk for falls and implement fall prevention plan of care per policy 2. Provide and maintain a safe environment 3. Proper use of double Identifiers 4. Medication administration using the 5 rights 5. Hand hygiene 6. Specimens are labeled at the bedside 7. Instruct patient/ patient charter representative about use of safety devices 8. Include patient/ patient charter representative in decisions related to safety Outcome: Progressing Note: Evaluation of progress towards goal: Proper identifiers used with patient care and medicationadministration. Remains free of injury during shift. Problem: Infection Goal: Absence of infection during hospitalization Description: Interventions: 1. Assess and monitor for signs and symptoms of infection 2. Monitor lab/diagnostic results 3. Monitor all insertion sites i.e., indwelling lines, tubes and drains 4. Monitor endotracheal (as able) and nasal secretions for changes in amount and color 5. Administer medications as ordered 6. Instruct and encourage patient and family to use good hand hygiene technique 7. Identify and instruct patient/patient charter representative in use of appropriate isolation precautionsfor identified infection/symptoms 8. Provide and discuss with patient/patient charter representative on educational MDRO sheet 9. Encourage and monitor nutritional status daily and consult maxillofacial pathology if indicated 10. Implement neutropenic guidelines as needed 11. Review exposure to history of communicable disease and recent travel history on admission 12. Encourage annual influenza vaccine 13. Encourage pneumonia vaccine Outcome: Progressing Note: Evaluation of progress towards goal: Skin integrity remains in stable condition; remains w/o ss of infection, fever, pain, or increased discomfort. Problem: Knowledge Deficit Goal: Patient/patient charter representative demonstrates understanding of disease process, treatment plan,medications, and discharge instructions Description: INTERVENTIONS 1. Complete learning assessment and assess knowledge base 2. Provide teaching at level of understanding 3. Provide teaching via preferred learning method(s) Outcome: Progressing Note: Evaluation of progress towards goal: Verbalizes understanding of current treatment plan as educated. Will continue to educate for understanding. Problem: Discharge Planning Goal: Discharge to post-acute care, other facility, or home with appropriate resources Description: Patient's goal is: INTERVENTIONS 1. Conduct assessment to determine patient/family and health care team treatment goals, and need for post-acute services based on payer coverage, community resources, and patient preferences, and barriers to discharge 2. Coordinate with Social work, Care Navigation, and Utilization Review to arrange appropriate level of services according to patient's needs based on patient preference and payer coverage in collaboration with the physician and health care team 3. Address psychosocial, clinical, and financial barriers to discharge as identified in assessment in conjunction with the patient/family and health care team 4. Consult appropriate ancillary services (i.e.. PT/OT/ST, etc) as needed 5. Communicate with and update the patient/family, physician, and health care team regarding progress on the discharge plan 6. Identify discharge learning needs (meds, wound care, etc). 7. Arrange for needed discharge transportation as appropriate Outcome: Progressing Note: Evaluation of progress towards goal: Discharge planning in process; will continue to monitor for discharge needs. Problem: Glucose Imbalance Goal: Clinical indication of glucose balance is achieved Description: Patient's goal is: INTERVENTIONS 1. Monitor blood glucose levels as ordered 2. Administer medications as ordered 3. Notify physician of ineffective treatment plan Outcome: Progressing Note: Evaluation of progress towards goal: Lab values monitored per shift; replacements provided asneeded or required. Will continue to monitor electrolyte values. Goal: Patient's discharge needs are met Description: Patient's goal is: INTERVENTIONS 1. Assess patient for self-management skills 2. Encourage participation in diabetes management 3. Identify potential discharge barriers on admission and throughout hospital stay 4. Involve patient/S.O. in discharge planning process 5. Communicate referral to special educator as appropriate 6. Communicate referral to maxillofacial pathology as appropriate 7. Collaborate with case management/social worker health services for discharge needs Outcome: Progressing Note: Evaluation of progress towards goal: Discharge planning in process; will continue to monitor for discharge needs. Problem: Moderate - High Risk Fall Score Description: Arredondo Fall Score of =/> 25 or indicated by [facility] Assessment Goal: Patient should be free from fall Description: Interventions: 1. [place] to environment 2. Hourly rounds addressing the 4 P's (Pain, Positioning, Possessions, Potty) 3. Clear area of hazards (spills, clutter, electrical cords, unnecessary equipment) 4. Place equipment (bed & TV controls, call light, phone, urinal) within reach 5. Encourage patient to wear glasses and hearing aides as appropriate 6. Maintain bed in lowest position 7. Lock wheels on bed/wheelchair 8. Provide adequate lighting, including night light 9. Assess need for additional bedding, food/fluids, pain med's prior to sleep/routinely 10. Provide gripper slippers or personal non-skid footwear 11. Teach patient and patient charter representative to maintain environment for safety and engage in all aspects of fall prevention program 12. Remind patient to call for help before getting out of bed 13. Initiate bed/chair/exit alarms supportive devices as appropriate, (chair wedge, no-skid floor mat, raised edge mattress, hip protectors) 14. Locate patient bed assignment for optimal visualization 15. Evaluate and identify Safe Patient Handling Equipment needs 16. Provide supervision when out of bed or chair 17. Utilize gait belt as needed to assist with ambulation 18. Place adaptive equipment (cane, walker) within reach 19. Request patient charter representative bring adaptive equipment/mobility aids from home or obtain and provide as needed 20. Consult pharmacy regarding effects of med's affecting mobility, cognition, and alternatives 21. Obtain physician order for PT if risk factors associated with mobility are present 22. Obtain physician order for OT as appropriate 23. Utilize diversional activities 24. Educate patient and patient charter representative how to maintain a safe environment during visitationtimes (notify nurse prior to leaving bedside) 25. Consider appropriateness of medical or non-medical librarian 26. Set up voiding schedule as appropriate (every 2 hours) Outcome: Progressing Note: Evaluation of progress towards goal: Call light within reach. Remains free of fall or injury.Environment free of clutter. * PT/OT/THERMAL SURFACING MACHINE OPERATOR - WILLARD Chavira/L - 01/18/2024 7:39 AM EDT Occupational Therapy CANCEL - Deferred Orders received for OT evaluation. Pt scheduled for hip fracture repair this date. Will check back post op * Plan of Care - Carin Contreras RN - 01/18/2024 5:30 AM EDT Problem: Moderate - High Risk Fall Score Description: Arredondo Fall Score of =/> 25 or indicated by [facility] Assessment Goal: Patient should be free from fall Description: Interventions: 1. [place] to environment 2. Hourly rounds addressing the 4 P's (Pain, Positioning, Possessions, Potty) 3. Clear area of hazards (spills, clutter, electrical cords, unnecessary equipment) 4. Place equipment (bed & TV controls, call light, phone, urinal) within reach 5. Encourage patient to wear glasses and hearing aides as appropriate 6. Maintain bed in lowest position 7. Lock wheels on bed/wheelchair 8. Provide adequate lighting, including night light 9. Assess need for additional bedding, food/fluids, pain med's prior to sleep/routinely 10. Provide gripper slippers or personal non-skid footwear 11. Teach patient and patient charter representative to maintain environment for safety and engage in all aspects of fall prevention program 12. Remind patient to call for help before getting out of bed 13. Initiate bed/chair/exit alarms supportive devices as appropriate, (chair wedge, no-skid floor mat, raised edge mattress, hip protectors) 14. Locate patient bed assignment for optimal visualization 15. Evaluate and identify Safe Patient Handling Equipment needs 16. Provide supervision when out of bed or chair 17. Utilize gait belt as needed to assist with ambulation 18. Place adaptive equipment (cane, walker) within reach 19. Request patient charter representative bring adaptive equipment/mobility aids from home or obtain and provide as needed 20. Consult pharmacy regarding effects of med's affecting mobility, cognition, and alternatives 21. Obtain physician order for PT if risk factors associated with mobility are present 22. Obtain physician order for OT as appropriate 23. Utilize diversional activities 24. Educate patient and patient charter representative how to maintain a safe environment during visitationtimes (notify nurse prior to leaving bedside) 25. Consider appropriateness of medical or non-medical librarian 26. Set up voiding schedule as appropriate (every 2 hours) Outcome: Progressing Note: Evaluation of progress towards goal: Patient remains fall free at this time. Fall precautionsin place. * Situational Awareness - Jeff Martin MD - 01/17/2024 10:57 AM EDT ED called Report to [facility] for Admission Pt transferred to for Ortho, morbid obesity, fall with hip fracture requiring OR, plan for tomorrow. Background HLD, IDDM2. No h/o CAD. Reported no other hemodynamic or acute medical concerns at this time. JEFF MARTIN MD documented in this encounterCommunity [facility] HospitalCreactives [id number] Progress note* Discharge Planning Note - Mendoza Pritchett - 01/22/2024 4:03 PM EDT DISCHARGE PLANNING NOTE CRF sent to [facility]06-10-2024 Progress note* Discharge Planning Note - JEWEL Crenshaw - 01/22/2024 3:40 PM EDT Images from the original note were not included. DISCHARGE PLANNING NOTE DC plan will be IPR: [facility] rehab has accepted pt. Pt is agreeable to [place]. No auth needed. Pt will discharge today. Transport arranged for 5pm. Patient, RN, facility all aware. CRF sent. W/C tx cert in dc packet Services Requested: Services Requested Discharge Disposition: Acute rehab Acute Rehab Name: [facility] rehab Acute Rehab Does the patient need discharge transportation arranged?: Yes Patient choice offered: Yes List Provided: Yes [facility]Port List Provided: Long-Term Facility Initial DC Assessment Completed: Yes Patient Goals: Goals: Goals (pt-stated) Evaluation of progress towards goal: possible rehab placement vs home pending progress, recommendations and pt decision - JEWEL Crenshaw 01/22/24 3:44 PM [facility]06-10-2024 Hospital course Narrative* Abad Diallo DO - 01/22/2024 3:21 PM EDT Images from the original note were not included. DISCHARGE NOTE Demographics: Patient Name: Ruth Smith : 1970 DATE OF ADMISSION: 01/17/2024 DATE OF DISCHARGE: 01/22/2024 DISCHARGE DIAGNOSES: Principal Problem: Closed fracture of right hip, initial encounter ([facility]) Active Problems: Closed displaced intertrochanteric fracture of right femur ([facility]) CONSULTANTS: Consulting Providers Provider Service Specialty Anne Ventura MD Z Physical Medicine and Rehabilitation Physical Medicine and Rehabilitation PCP: Jd Du PA-C PROCEDURES PERFORMED: No admission procedures for hospital encounter. HOSPITAL COURSE SUMMARY: HPI from admission: Patient is a 53-year-old male with known Hx/o DM2, HTN, HLD, COPD, Chronic pain disorder, Fibromyalgia, GERD/Esophagitis, Colon cancer s/p sigmoid colectomy, Liver cirrhosis secondary to hepatitis C,Chronic thrombocytopenia, cervical radiculopathy related to C5-C7 herniated disc presents with mechanical fall and right hip pain initially to [facility] and transferred to [facility]. Patient awake oriented x3 does not be in distress, tripped over a dog and landed on his right knee on a hard tile floor thereafter started having right knee and right hip pain presently controlled with medications. Patient mentions initially it knocked him off and he was short of breath when he could not catch his breath for few minutes. Presently denies any shortness of breath. Patient complains of chronic numbness and tingling in arms and legs and recently being evaluated for cervical radiculopathy symptoms because of herniated disc was supposed to see neurosurgeon next week. Patient has chronic rhinorrhea related to seasonal allergies. Patient denies chest pain, palpitations, syncope, near-syncope, URTI symptoms, headache, visual complaints, earache or ear discharge, dysarthria, dysphagia, focal weakness, fever or chills, abdominalpain, diarrhea, nausea, vomiting, weight loss, hemoptysis, hematemesis, hematochezia, melena, dysuria, urgency, frequency, hematuria, Problem list Course: Acute nondisplaced intertrochanteric right hip fracture secondary to mechanical fall-status post IMnailing on 01/18/2024 Multiple electrolyte disturbances including hypokalemia and hypomagnesemia- improved with replacement Vitamin-D deficiency-initiated on supplementation Chronic thrombocytopenia, in the setting of liver disease-appears near baseline Hypomagnesemia-with ongoing replacement Diabetes mellitus type 2 Hx/o Liver cirrhosis to Hepatitis C appears compensated. Hx/o COPD not in exacerbation Benign essential hypertension. Controlled. Dyslipidemia Hx/o Depression. On Celexa. Hx/o Cervical radiculopathy related to C5-C7 herniated disc. Outpatient follow- up with Neurosurgeryas scheduled next week Degenerative joint disease of the lumbar spine BPH on Flomax Chronic constipation GERD/Esophagitis. Continue Protonix. Patient was admitted with Orthopedic surgery on consultation. He underwent IM nailing right intertrochanteric hip fracture on 01/18/2024. He tolerated procedure well without complication. Was seen postoperatively by PT/ OT, recommended inpatient rehab. He was discharged to inpatient rehab on 01/22/2024. Advised to follow up with PCP & Orthopedic surgery after hospitalization Exam: Temp: [36.5 C (97.7 F)-36.8 C (98.2 F)] 36.5 C (97.7 F) Pulse: [76-98] 87 Resp: [15-18] 18 BP: (101-141)/(69-92) 126/88 SpO2: [93 %-98 %] 94 % O2 Device: None (Room air) O2 Flow Rate (L/min): [0 L/min] 0 L/min Intake/Output Summary (Last 24 hours) at 01/22/2024 1521 Last data filed at 01/22/2024 0545 Gross per 24 hour Intake 295.93 ml Output 2575 ml Net -2279.07 ml Physical Exam Constitutional: General: He is not in acute distress. Appearance: He is obese. He is not ill-appearing. HENT: Head: Normocephalic and atraumatic. Eyes: General: No scleral icterus. Extraocular Movements: Extraocular movements intact. Cardiovascular: Rate and Rhythm: Normal rate and regular rhythm. Pulses: Normal pulses. Heart sounds: Normal heart sounds. No murmur heard. No gallop. Pulmonary: Effort: Pulmonary effort is normal. Breath sounds: No wheezing, rhonchi or rales. Abdominal: General: There is no distension. Palpations: Abdomen is soft. Tenderness: There is no abdominal tenderness. Musculoskeletal: Right lower leg: No edema. Left lower leg: No edema. Skin: General: Skin is warm and dry. Comments: Right hip surgical incision site with dressing in place, appears clean/dry Neurological: General: No focal deficit present. Mental Status: He is alert and oriented to person, place, and time. Mental status is at baseline. Motor: No weakness. Comments: Limited range of motion of right hip secondary to pain. Moves extremities spontaneously Psychiatric: Mood and Affect: Mood normal. Behavior: Behavior normal. Labs: Recent Results (from the past 48 hour(s)) Bedside Glucose *Place/Obtain serum glucose if >500(>600 [facility]) per glucometer. Collection Time: 01/20/24 3:51 PM Result Value Ref Range Bedside glucose 131 (H) 65 - 99 mg/dL Bedside Glucose *Place/Obtain serum glucose if >500(>600 [facility]) per glucometer. Collection Time: 06/08/24 8:52 PM Result Value Ref Range Bedside glucose 205 (H) 65 - 99 mg/dL Magnesium Collection Time: 01/21/24 6:19 AM Result Value Ref Range Magnesium 1.7 (L) 1.8 - 2.6 mg/dL Basic Metabolic Panel Collection Time: 01/21/24 6:19 AM Result Value Ref Range Sodium 137 134 - 146 mmol/L Potassium, Bld 4.7 3.5 - 5.0 mmol/L Chloride 99 98 - 109 mmol/L CO2 26 22 - 32 mmol/L Anion gap 12 5 - 15 mmol/L BUN 13 5 - 23 mg/dL Creatinine 0.71 0.60 - 1.30 mg/dL Glucose 153 (H) 65 - 99 mg/dL Calcium 9.4 8.5 - 10.5 mg/dL eGFR (CKD-EPI)non-race dependent >90 >59 ml/min/1.73sq.m CBC auto differential Collection Time: 01/21/24 6:19 AM Result Value Ref Range White Blood Cells 6.9 4.0 - 11.0 X10E9/L RBC count 4.07 (L) 4.10 - 5.70 X10E12/L Hemoglobin 11.8 (L) 13.0 - 17.0 g/dL Hematocrit 34.9 (L) 39 - 49 % MCV 86 80 - 100 fL MCH 29.0 27 - 34 pg MCHC 33.8 32 - 36 g/dL RDW 16.6 (H) 11.5 - 15.0 % Platelets 129 (L) 150 - 450 X10E9/L MPV 11.4 7 - 12 fL % neutrophils 71.0 % % lymphocytes 18.8 % % monocytes 8.4 % % eosinophils 1.1 % % Basophils 0.7 % Neutrophils Absolute (A) 4.9 1.5 - 6.6 X10E9/L Lymphocytes Absolute 1.3 1.0 - 3.5 X10E9/L Monocytes Absolute 0.6 0 - 0.9 X10E9/L Eosinophils Absolute 0.1 0.0 - 0.4 X10E9/L Basophils Absolute 0.0 0.0 - 0.2 X10E9/L Bedside Glucose *Place/Obtain serum glucose if >500(>600 [facility]) per glucometer. Collection Time: 01/21/24 9:06 AM Result Value Ref Range Bedside glucose 147 (H) 65 - 99 mg/dL Bedside Glucose *Place/Obtain serum glucose if >500(>600 [facility]) per glucometer. Collection Time: 01/21/24 12:01 PM Result Value Ref Range Bedside glucose 151 (H) 65 - 99 mg/dL Bedside Glucose *Place/Obtain serum glucose if >500(>600 [facility]) per glucometer. Collection Time: 01/21/24 4:54 PM Result Value Ref Range Bedside glucose 169 (H) 65 - 99 mg/dL Bedside Glucose *Place/Obtain serum glucose if >500(>600 [facility]) per glucometer. Collection Time: 01/21/24 8:29 PM Result Value Ref Range Bedside glucose 223 (H) 65 - 99 mg/dL Basic Metabolic Panel Collection Time: 01/22/24 6:33 AM Result Value Ref Range Sodium 138 134 - 146 mmol/L Potassium, Bld 4.0 3.5 - 5.0 mmol/L Chloride 101 98 - 109 mmol/L CO2 26 22 - 32 mmol/L Anion gap 11 5 - 15 mmol/L BUN 12 5 - 23 mg/dL Creatinine 0.62 0.60 - 1.30 mg/dL Glucose 150 (H) 65 - 99 mg/dL Calcium 9.3 8.5 - 10.5 mg/dL eGFR (CKD-EPI)non-race dependent >90 >59 ml/min/1.73sq.m CBC auto differential Collection Time: 01/22/24 6:33 AM Result Value Ref Range White Blood Cells 6.2 4.0 - 11.0 X10E9/L RBC count 3.99 (L) 4.10 - 5.70 X10E12/L Hemoglobin 11.8 (L) 13.0 - 17.0 g/dL Hematocrit 33.7 (L) 39 - 49 % MCV 85 80 - 100 fL MCH 29.5 27 - 34 pg MCHC 34.9 32 - 36 g/dL RDW 16.3 (H) 11.5 - 15.0 % Platelets 113 (L) 150 - 450 X10E9/L MPV 10.7 7 - 12 fL % neutrophils 65.4 % % lymphocytes 23.1 % % monocytes 10.1 % % eosinophils 0.7 % % Basophils 0.7 % Neutrophils Absolute (A) 4.1 1.5 - 6.6 X10E9/L Lymphocytes Absolute 1.4 1.0 - 3.5 X10E9/L Monocytes Absolute 0.6 0 - 0.9 X10E9/L Eosinophils Absolute 0.0 0.0 - 0.4 X10E9/L Basophils Absolute 0.0 0.0 - 0.2 X10E9/L Magnesium Collection Time: 01/22/24 6:33 AM Result Value Ref Range Magnesium 1.4 (L) 1.8 - 2.6 mg/dL Bedside Glucose *Place/Obtain serum glucose if >500(>600 [facility]) per glucometer. Collection Time: 01/22/24 7:34 AM Result Value Ref Range Bedside glucose 135 (H) 65 - 99 mg/dL Bedside Glucose *Place/Obtain serum glucose if >500(>600 [facility]) per glucometer. Collection Time: 01/22/24 1:12 PM Result Value Ref Range Bedside glucose 138 (H) 65 - 99 mg/dL Pending Labs: DISCHARGE INSTRUCTIONS: Disposition: Discharge to [facility] Condition:Stable Activity: activity as tolerated Diet: Adult nutrition supplements Adult diet Regular Texture; Consistent Carb 210 grams (1800 kcal) Follow up: Jd Du PA-C [address] [place] [address] For most accurate medication list, please review the discharge medication summary. Medication List START taking these medications Instructions Last Dose Given Next Dose Due calcium citrate 200 mg (950 mg) tablet Commonly known as: CALCITRATE Take 2 tablets (400 mg total) by mouth in the morning and 2 tablets (400 mg total) at noon and 2 tablets (400 mg total) in the evening. Take with meals. Do all this for 30 days. cholecalciferol (vitamin D3) 2,000 units tablet Start taking on: January 23, 2024 Take 1 tablet (2,000 Units total) by mouth in the morning for 30 days. enoxaparin 40 mg/0.4 mL syringe Commonly known as: LOVENOX Start taking on: January 23, 2024 Inject 0.4 mL (40 mg total) under the skin in the morning for 30 days. ergocalciferol 1,250 mcg (50,000 unit) capsule Commonly known as: DRISDOL Start taking on: January 25, 2024 Take 1 capsule (50,000 Units total) by mouth once a week for 3 doses. CONTINUE taking these medications Instructions Last Dose Given Next Dose Due acetaminophen 500 mg tablet Commonly known as: TYLENOL EXTRA STRENGTH Take 2 tablets (1,000 mg total) by mouth every 6 (six) hours. albuterol 90 mcg/actuation inhaler Commonly known as: PROVENTIL HFA;VENTOLIN HFA Inhale 2 puffs every 6 (six) hours as needed for wheezing. carvediloL 6.25 mg tablet Commonly known as: COREG Take 1 tablet (6.25 mg total) by mouth in the morning and 1 tablet (6.25 mg total) in the evening. Take with meals. citalopram 20 mg tablet Commonly known as: CeleXA Take 1 tablet (20 mg total) by mouth in the morning. Indications: major depressive disorder. colestipoL 1 g tablet Commonly known as: COLESTID Take 1 tablet (1 g total) by mouth in the morning. cyclobenzaprine 10 mg tablet Commonly known as: FLEXERIL Take 1 tablet (10 mg total) by mouth 2 (two) times a day as needed for muscle spasms. fenofibrate 160 mg tablet Commonly known as: LOFIBRA Take 1 tablet (160 mg total) by mouth in the morning. gabapentin 800 mg tablet Commonly known as: NEURONTIN Take 1 tablet (800 mg total) by mouth in the morning and 1 tablet (800 mg total) at noon and 1 tablet (800 mg total) in the evening and 1 tablet (800 mg total) before bedtime. Indications: neuropathic pain. 9am, 2pm, 8pm, midnight. HumaLOG KwikPen Insulin 100 unit/mL insulin pen Generic drug: insulin lispro Inject 18 Units under the skin in the morning and 18 Units at noon and 18 Units in the evening. Inject with meals. hydroCHLOROthiazide 25 mg tablet Commonly known as: HYDRODIURIL Take 1 tablet (25 mg total) by mouth daily. hyoscyamine 0.125 mg tablet Commonly known as: ANASPAZ,LEVSIN Take 1 tablet (0.125 mg total) by mouth in the morning and 1 tablet (0.125 mg total) at noon and 1 tablet (0.125 mg total) in the evening and 1 tablet (0.125 mg total) before bedtime. linagliptin-metFORMIN 2.5-1,000 mg tablet Take 1 tablet by mouth 2 (two) times daily at 0800 and 1500. losartan 100 mg tablet Commonly known as: COZAAR Take 1 tablet (100 mg total) by mouth in the morning. magnesium oxide 400 mg tablet Commonly known as: MAGOX Take 1 tablet (400 mg total) by mouth in the morning. meloxicam 15 mg tablet Commonly known as: MOBIC Take 1 tablet (15 mg total) by mouth daily as needed for pain. omeprazole 40 mg capsule Commonly known as: PriLOSEC Take 1 capsule (40 mg total) by mouth in the morning and at bedtime. ondansetron 8 mg tablet Commonly known as: ZOFRAN Take 1 tablet (8 mg total) by mouth every 8 (eight) hours as needed for nausea or vomiting. OZEMPIC 0.25 mg or 0.5 mg (2 mg/3 mL) pen injector Generic drug: semaglutide Inject 0.5 mg under the skin once a week. Monday sennosides-docusate sodium 8.6-50 mg Commonly known as: SENOKOT-S Take 2 tablets by mouth in the morning and 2 tablets before bedtime. sucralfate 1 gram tablet Commonly known as: CARAFATE Take 1 tablet (1 g total) by mouth in the morning and 1 tablet (1 g total) at noon and 1 tablet (1 g total) in the evening and 1 tablet (1 g total) before bedtime. tamsulosin 0.4 mg capsule Commonly known as: FLOMAX Take 1 capsule (0.4 mg total) by mouth nightly. traZODone 50 mg tablet Commonly known as: DESYREL Take 1 tablet (50 mg total) by mouth nightly. TRESIBA FLEXTOUCH U-100 100 unit/mL (3 mL) insulin pen Generic drug: insulin degludec Inject 20 Units under the skin in the morning. UNIFINE PENTIPS PLUS 31 gauge x 1/4 needle Generic drug: pen needle, diabetic use four times a day as directed VIBERZI 100 mg tablet Generic drug: eluxadoline Take 1 tablet (100 mg total) by mouth in the morning and 1 tablet (100 mg total) in the evening. Take with meals. XIFAXAN 550 mg tablet Generic drug: rifAXIMin Take 1 tablet (550 mg total) by mouth in the morning and at bedtime. Where to Get Your Medications These medications were sent to [facility] [id number] - [place], [place] - [address] [place] [address] AT NEC OF [facility] [address] [facility] [id number] calcium citrate 200 mg (950 mg) tablet cholecalciferol (vitamin D3) 2,000 units tablet ergocalciferol 1,250 mcg (50,000 unit) capsule sennosides-docusate sodium 8.6-50 mg Information about where to get these medications is not yet available Ask your nurse or doctor about these medications enoxaparin 40 mg/0.4 mL syringe 45 minutes were spent on discharging this patient. 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 male whose primary indication for inpatient rehabilitation is: Orthopedic Disorders: 03.24 Status Post Unilateral Hip Fracture Etiologic Diagnosis: Right Hip Fracture Patient presents to ED after a fall w/ right hip pain. Imaging showed right intertrochanteric fracture. He status post IM nailing on 01/17. Comorbidities/Medical issues requiring further interdisciplinary management at [facility]: Right Hip Fracture s/p IMN 01/17 -WBAT RLE, Pain control, ice/elevation, bowel regimen -Fall risk Vitamin-D deficiency-initiated on supplementation Chronic thrombocytopenia, in the setting of liver disease-appears near baseline Multiple electrolyte disturbances including hypokalemia and hypomagnesemia- improved with replacement DM2 Hx Liver cirrhosis to Hepatitis C appears compensated. Hx COPD not in exacerbation Benign essential hypertension. Coreg, Losartan Dyslipidemia Hx Depression. On Celexa. Hx Cervical radiculopathy related to C5-C7 herniated disc. Outpatient follow-up with Neurosurgery as scheduled next week Degenerative joint disease of the lumbar spine BPH on Flomax Chronic constipation GERD/Esophagitis. Continue Protonix. DVT Ppx, Lovenox History of Present Illness: Patient Active Problem List Diagnosis Facial infection Abdominal pain Closed displaced intertrochanteric fracture of right femur ([facility]) Closed fracture of right hip, initial encounter ([facility]) Past Medical History: Diagnosis Date Asthma Back pain Chronic cough from lisinopril Chronic pain disorder Colon cancer ([facility]) COPD (chronic obstructive pulmonary disease) ([facility]) Depression Diabetes mellitus type 2, controlled ([facility]) Fibromyalgia, primary Fracture of right hip, closed, initial encounter ([facility]) 01/17/2024 GERD (gastroesophageal reflux disease) Hyperlipidemia Hypertension Insulin-treated type 2 diabetes mellitus ([facility]) Joint pain Kidney stones Liver disease Low back pain Neck pain Obesity Osteoarthritis Visual impairment Past Surgical History: Procedure Laterality Date BACK SURGERY COLON SURGERY resection, 2018, [facility] DAVINCI REPAIR HERNIA VENTRAL N/A 10/27/2021 Performed by Ridge Cedillo MD at [facility] DENTAL SURGERY pt had all teeth removed HERNIA REPAIR x's 2 INSERTION INTRAMEDULLARY NAIL FEMUR-TFNA HIP FX Right 01/18/2024 Performed by Ang Figueroa MD at [facility] ORTHOPEDIC SURGERY 2008 foot, infected foot Ongoing Medical Management Needs: Patient risk factors for clinical complication: Pain Management, Aspiration Risk, Fall Risk, Lab Monitor, BP, and Monitor Lung Sounds Additional Clinical and Specialty needs: Safety Alarms No active infections No active isolations Medication adjust/review: Current Facility-Administered Medications Medication Dose Route Frequency Provider Last Rate Last Admin acetaminophen (TYLENOL EXTRA STRENGTH) tablet 1,000 mg 1,000 mg oral Q6H COUNTS INCLUDE 234 BEDS AT THE [facility] Stephen Hannah MD 1,000 mg at 01/22/24 1135 albuterol (PROVENTIL,VENTOLIN) nebulizer solution 2.5 mg 2.5 mg nebulization Q6H PRN Stephen Hannah MD calcium citrate (CALCITRATE) tablet 400 mg 400 mg oral TID with meals Vilma Beckwith PA-C 400 mg at 01/22/24 1134 carvediloL (COREG) tablet 6.25 mg 6.25 mg oral BID with meals Yvroseveronica Imani DO 6.25 mg at 01/22/24 0835 cholecalciferol (vitamin D3) tablet 2,000 Units 2,000 Units oral Daily Vilma Beckwith PA-C 2,000 Units at 01/22/24 0836 citalopram (CeleXA) tablet 20 mg 20 mg oral Daily Stephen Hannah MD 20 mg at 01/22/24 0836 cyclobenzaprine (FLEXERIL) tablet 10 mg 10 mg oral BID PRN Stephen Hannah MD 10 mg at 01/22/24 0717 dextrose (GLUTOSE) 40 % gel 15 g 15 g oral PRN Stephen Hannah MD dextrose 5 % (D5W) infusion 100 mL/hr intravenous Continuous PRN Stephen Hannah MD dextrose 50 % in water (D50W) 50% solution 25 mL 25 mL intravenous PRN Stephen Hannah MD enoxaparin (LOVENOX) syringe 40 mg 40 mg subcutaneous Daily Vilma Beckwith PA-C 40 mg at 01/22/24 0539 ergocalciferol (DRISDOL) capsule 50,000 Units 50,000 Units oral Weekly Vilma Beckwith PA-C 50,000 Units at 01/18/24 1630 fenofibrate micronized (LOFIBRA) capsule 134 mg 134 mg oral Daily with breakfast Stephen Hannah MD 134 mg at 01/22/24 0836 gabapentin (NEURONTIN) capsule 800 mg 800 mg oral 4x Daily Stephen Hannah MD 800 mg at 355 glucagon HCL injection 1 mg 1 mg intramuscular PRN Stephen Hannah MD HYDROmorphone (PF) (DILAUDID) injection 1 mg 1 mg intravenous Q2H PRN Vilma Beckwith PA-C 1 mg at 01/22/24 0539 ibuprofen (MOTRIN) tablet 800 mg 800 mg oral Q6H PRN Stephen Hannah MD 800 mg at 01/21/24 1030 insulin lispro (HumaLOG) injection 1-4 Units 1-4 Units subcutaneous Nightly Vilma Beckwith PA-C 1 Units at 01/20/24 2155 insulin lispro (HumaLOG) injection 1-5 Units 1-5 Units subcutaneous TID with meals Vilma Beckwith PA-C 1 Units at 01/21/24 1757 lidocaine (LIDODERM) 5 % 1 patch 1 patch transdermal Daily Stephen Hannah MD 1 patch at 01/21/24 2105 losartan (COZAAR) tablet 100 mg 100 mg oral Daily Abad Diallo, DO 100 mg at 01/22/24 0836 magnesium sulfate IVPB 2000 mg/50 mL in iso-osmotic water (40 mg/mL premix) 2,000 mg intravenous PRN Vilma Beckwith PA-C Stopped at 01/21/24 1133 magnesium sulfate IVPB 4000 mg/100 mL in iso-osmotic water (40 mg/mL premix) 4,000 mg intravenous PRN Vilma Beckwith PA-C 25 mL/hr at 01/22/24 1020 4,000 mg at 01/22/24 1020 melatonin (CIRCADIN) tablet 3 mg 3 mg oral Nightly PRN Stephen Hannah MD nicotine (NICODERM CQ) 14 mg/24 hr 1 patch 1 patch transdermal Daily Vilma Beckwith PA-C 1 patch at 01/22/24 0837 ondansetron (PF) (ZOFRAN) injection 4 mg 4 mg intravenous Q4H PRN Stephen Hannah MD oxyCODONE (ROXICODONE) immediate release tablet 10 mg 10 mg oral Q3H PRN Angelica Odom PA-C 10 mg at 01/22/24 1135 oxyCODONE (ROXICODONE) immediate release tablet 5 mg 5 mg oral Q3H PRN Angelica Odom PA-C pantoprazole (PROTONIX) EC tablet 40 mg 40 mg oral Daily Abad Reedvi, DO 40 mg at 01/22/24 0539 polyethylene glycol (GLYCOLAX) packet 17 g 17 g oral BID Stephen Hannah MD 17 g at 01/20/24 0905 potassium chloride (K-TAB,KLOR-CON) CR tablet 30-50 mEq 30-50 mEq oral PRN Vilma Beckwith PA-C 40 mEq at 01/17/242013 Or potassium chloride (KAYCIEL) 20 mEq/15 mL solution 30-50 mEq 30-50 mEq oral PRN Vilma Beckwith PA-C rifAXIMin (XIFAXAN) tablet 550 mg 550 mg oral Q12H COUNTS INCLUDE 234 BEDS AT THE [facility] Yvroseveronica Imani, DO 550 mg at 01/22/24 0836 sennosides-docusate sodium (SENOKOT-S) 8.6-50 mg 2 tablet 2 tablet oral BID Stephen Hannah MD 2tablet at 01/20/24 0905 tamsulosin (FLOMAX) 24 hr capsule 0.4 mg 0.4 mg oral Nightly Stephen Hannah MD 0.4 mg at 01/21/24 2108 O2 Level SpO2: 94 % (01/22/24 0714) O2 Device: None (Room air) (01/22/24 1313) O2 Flow Rate (L/min): 0 L/min (01/22/24 1313) Pain Assessment: 0-10 (01/22/24 1134) Pain Score: 10 (01/22/24 1134) Pain Type: Surgical pain (01/22/24 1134) Pain Location: Hip, Back, Leg (01/22/24 1134) Pain Orientation: Right, Lower (01/22/24 1134) Pain Radiating Towards: Leg and lower back (01/22/24 1134) Pain Descriptors: Sharp (01/22/24 1134) Pain Frequency: Constant/continuous (01/22/24 1134) Pain Onset: Ongoing (01/22/24 1134) Clinical Progression: Gradually worsening (01/22/24 1134) Effect of Pain on Daily Activities: comfort (01/21/24 0514) Patient's Stated Pain Goal: No pain (01/21/24 2220) Pain Intervention(s): Medication (See MAR) (01/22/24 1134) Response to Interventions: Pain unchanged, Quiet (01/22/24 0922) Wound Assessment: Skin: Skin Color: [place], Pale (01/22/24 1132) Skin Temp: Cool, Dry (01/22/24 0400) Skin Integrity: Bruising (01/22/24 1132) risk: turn and position every 2 hours, lotion to bk prominences, moisture barrier, and pressure relief every 20 minutes while up in chair Dialysis? No Language/Cognition: Andorran [22] Hearing / Speech / Vision Hearing: Within Functional Limits Speech: Within Functional Limits Current Vision: No visual deficits Cognition Overall Cognitive Status: Exceptions to Within Functional Limits Arousal/Alertness: Appropriate responses to stimuli Attention Span: Attends with cues to redirect Orientation Level: Oriented X4 Following Commands: Follows one step commands with increased time, Follows one step commands with repetition Safety Judgment: Decreased awareness of need for safety Awareness of Errors: Assistance required to identify errors made Other: Pt pain improved this PM. pt pleasant and cooperative Fall risk: Arredondo Fall Risk History of Falling: Yes Secondary Diagnosis: Yes Ambulatory Aids: Crutches/walker/cane Intravenous Therapy/Heparin/Saline Lock: Yes Gait/Transferring: Weak Mental Status: Oriented to own ability Score: 85 Additional precautions: Precautions: Fall (01/22/24 1023) Cultural considerations: N/A Reinforced Ironworker needed? No [2] BP 134/90 Pulse 90 Temp 36.6 C (97.9 F) (Oral) Resp 18 Ht 185.4 cm (6' 0.99 ) Wt 118.5 kg(261 lb 3.9 oz) SpO2 94% BMI 34.47 kg/m Lab Results Component Value Date SODIUM 138 01/22/2024 Lab Results Component Value Date K 4.0 01/22/2024 Lab Results Component Value Date CL 101 01/22/2024 Lab Results Component Value Date CO2 26 01/22/2024 Lab Results Component Value Date BUN 12 01/22/2024 Lab Results Component Value Date CREATININE 0.62 01/22/2024 Lab Results Component Value Date GLU 138 (H) 01/22/2024 Lab Results Component Value Date CALCIUM 9.3 01/22/2024 Lab Results Component Value Date ALBUMIN 3.9 01/17/2024 Lab Results Component Value Date ALKPHOS 42 01/17/2024 Lab Results Component Value Date ALT 13 01/17/2024 Lab Results Component Value Date AST 24 01/17/2024 Lab Results Component Value Date WBC 6.2 01/22/2024 Lab Results Component Value Date RBCCOUNT 3.99 (L) 01/22/2024 Lab Results Component Value Date HGB 11.8 (L) 01/22/2024 Lab Results Component Value Date HCT 33.7 (L) 01/22/2024 Lab Results Component Value Date PLT 113 (L) 01/22/2024 Lab Results Component Value Date MCV 85 01/22/2024 No results found for: PT Lab Results Component Value Date INR 1.0 01/17/2024 Nutritional Status: Height: Height: 185.4 cm (6' 0.99 ) (01/18/24 1049) Weight: Weight: 118.5 kg (261 lb 3.9 oz) (01/21/24 5728) Diet: Dietary Orders (From admission, onward) Start Ordered 01/18/24 1554 Adult diet Regular Texture; Consistent Carb 210 grams (1800 kcal) Diet effective now Question Answer Comment Diet Type: Regular Texture Carbohydrate Modifiers: Consistent Carb 210 grams (1800 kcal) 01/18/24 1553 01/18/24 1519 Adult nutrition supplements Continuous Question Answer Comment Diet Type or Consistency: Regular Texture Select Supplement: Diabetic Supplement Frequency: BID 01/18/24 1519 (Show up to 1 orders; newest on the left.) None Allergies: Insulin glargine Tube Feed: Elimination: Bowel Incontinence: No (01/21/241599) Unmeasured Stool Occurrence: 2 (01/21/241599) Stool Amount: Large (01/21/24 1615) Last BM Date: 01/22/24 (01/22/241131) Level of function prior to event/condition leading to need for intensive rehabilitation therapy: Prior Function Lives With: Alone (01/19/24923) Receives Help From: (pt states his neighbor could assist some) (01/19/24923) Level of Mobility: Independent with ADLs and functional transfers or gait (01/19/24923) Homemaking Assistance: Independent (01/19/24923) Other: Pt independent without devices prior. Pt trejo snot drive so friends assist with transportation (01/19/24923) Speech Therapy: No Speech/Language Impressions: Swallowing Impressions: Current Level of Function - Physical Therapy: Mobility/transfers: Supine to Sit: Mod assist (x2) (01/22/24830) Sit to Supine: Unable to assess (pt up in chair at end of session with call light in reach and all needs met. RN aware. Chair alarm on.) (01/22/24830) Transfers Sit to Stand: Min assist (x2) (01/22/24830) Stand to Sit: Min assist (x2) (01/22/24830) Toilet Transfers: Mod assist (x2) (01/22/24830) Other: Pt completed STS from EOB with bed height slightly elevated and min x2 assist for safety. Use of momemtum to achieve standing. Cues for hand placement and RLE placement during transfers. Pt required increased assist of mod x2 from toilet due to low height. All completed with RW. INcreased time/ effort. (01/22/24830) Ambulation: Gait Base of Support: Within Functional Limits (01/22/24829) Pattern: Decreased jesusita, Antalgic gait, R Decreased heel strike, L Decreased heel strike, R Decreased foot clearance, L Decreased foot clearance, Forward trunk, R Decreased stance time, R Flexed knee (dec step length/height) (01/22/24829) Gait Assistance: Min assist (01/22/24830) Assistive Device: Rolling walker (01/22/24830) Gait Distance: 15 ft x 2 functional distance (01/22/24830) Limiting Factors to Gait: Fatigue, Weakness, Pain (01/22/24830) 2 Turns: Yes (01/21/24 1532) Other: pt completedf functional mobility to and from bathroom with min assist for safety. pt moves very slowly and cautiously. Pt c/o increasing R knee pain throughout mobility. slightly unsteady without overt LOB. (01/22/24830) Activity limitations: Activity Tolerance Endurance: Tolerates >30 minutes activity with rest breaks (01/22/24830) Other: rest breaks throughout. pt c/o increasing R knee pain during all activity today. Limited by fatigue, weakness, and pain. (01/22/24830) Weight-bearing: Current Level of Function - Occupational Therapy: Hand Dominance: Hand Dominance: Right (01/22/24830) Where Assessed: Where Assessed: Edge of bed, At toilet, Standing at sink (01/22/24830) Equipment Used: Feeding: Eating Assistance: Independent (01/19/24922) Grooming: Grooming Assistance: Standby assist (01/22/24830) Grooming Deficit: Steadying, Supervision/safety, Wash/dry hands, Wash/dry face, Oral hygiene (01/20/24817) Oral Hygiene: Bathing:Bathing/Showering Assistance: Mod assist (01/19/24922) Shower: Toilet/Commode Toilet/Commode Assistance: Mod assist (01/22/24830) Toilet/Commode Deficit: Supervison/safety, Increased time to complete, Grab bar use, Perineal hygiene (01/21/24 1043) Dressing: UE Dressing Assistance: Min assist (01/19/24922) LE Dressing Assistance: Mod assist (01/22/24830) Other:Other: Pt sat at EOB and was able to exchange L sock. Single Stayer Operator assisted with R foot. Pt then donned shorts with assist to thread the RLE and pt able to thread LLE. When standing, pt able to pull them up with some assist. Pt then amb to toilet and completed toileting with mod assist for toilet transfer and pericare and managing shorts. Pt then stood at sink to wash hands with SBA for safety. Increased time and effort for all ADLs this date. 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 The patient has a need for intensive rehabilitation with the following disciplines: Physical Therapy and Occupational Therapy Expected PT frequency and duration: 5 days per week for 10 days Expected OT frequency and duration: 5 days per week for [address] frequency and duration: N/A Is the patient sufficiently stable, willing, and able to participate to tolerate an Intensive Rehabilitation Program that consists of at least 3 hours of therapy per day, 5 days per week? Yes Does the patient require supervision by a rehabilitation physician to assess and modify the course of treatment for medical and functional needs? yes Is the patient's condition and functional status expected to make measurable improvements and will the patient significantly benefit from the intensive rehabilitation program? yes Does the patient require an intensive and coordinated interdisciplinary approach to providing rehabilitation? yes Prognosis/expected level of improvement: Independent Expected discharge disposition: Home Expected length of stay: 2 weeks Anticipated post-discharge treatments: Outpatient Therapy Services, Follow-up with PCP, and Orthopedic Surgeon Associated attestation - Anne Ventura MD - 01/22/2024 3:27 PM EDT By signing this document, I have reviewed and concur with the findings and results of the preadmission screening. Anne Ventura MD * Tom Marquez PA-C - 01/22/2024 1:22 PM EDT Orthopedic Progress Note Subjective Patient sitting up in bedside chair. Patient states that most of pain is in his knee. Patient has ambulated with physical therapy. No chest pain shortness of breath. No constitutional signs or symptoms. Objective BP 134/90 Pulse 84 Temp 36.7 C (98.1 F) (Oral) Resp 18 Ht 185.4 cm (6' 0.99 ) Wt 118.5 kg(261 lb 3.9 oz) SpO2 94% BMI 34.47 kg/m O2 Device: None (Room air) Lab Results Component Value Date WBC 6.2 01/22/2024 HGB 11.8 (L) 01/22/2024 HCT 33.7 (L) 01/22/2024 MCV 85 01/22/2024 PLT 113 (L) 01/22/2024 Lab Results Component Value Date GLU 138 (H) 01/22/2024 CALCIUM 9.3 01/22/2024 K 4.0 01/22/2024 CO2 26 01/22/2024 BUN 12 01/22/2024 CREATININE 0.62 01/22/2024 Lab Results Component Value Date INR 1.0 01/17/2024 INR 1.1 01/17/2024 INR 1.0 10/13/2021 PROTIME 12.2 01/17/2024 PROTIME 12.5 01/17/2024 PROTIME 12.0 10/13/2021 right LE: Incision clean dry and intact, SILT s/s/sp/dp/pt, + motor fxn EHL, FHL, DF, PF. Comparments & calves soft and compressible Palpable pulses with BCR x 5 X-ray right hip performed yesterday 01/21/2024 reveals stable intramedullary nail right hip fracture X-rays right knee performed 01/17/2024 with no acute fracture Assessment/Plan : Ruth Smith is a 53 yrs male s/p IM nail right hip fracture PLAN WBAT right lower extremity X-rays of right hip stable PT/OT- gait training, mobilize Calcium and vitamin-D supplementation Ice/elevation Pain control DVT Proph: Lovenox Tom Marquez PA-C Tom N Marquez, PA-C 01/22/24 1323 * Abad Diallo DO - 01/21/2024 10:01 AM EDT Images from the original note were not included. [facility] Hospitalists Progress Note 01/21/2024 Patient Name: Ruth Smith : 1970 Hospital Day: 5 SUBJECTIVE Patient states he had a good day yesterday, but states he had a rough night with pain. He has feeling a bit better this morning, Palacios catheter was removed and portable urinal was placed at bedside. He was to work with therapy this morning. He was agreeable for rehab at SNF or inpatient rehab OBJECTIVE Vital Signs: Temp: [36.4 C (97.6 F)-36.8 C (98.3 F)] 36.8 C (98.3 F) Pulse: [79-90] 90 Resp: [16-18] 16 BP: (105-128)/(57-93) 128/93 SpO2: [90 %-96 %] 95 % O2 Device: None (Room air) Weight: Body mass index is 33.65 kg/m . Admission weight: 113.4 kg (250 lb) Wt Readings from Last 3 Encounters: 01/18/24 115.7 kg (255 lb) 08/19/22 113.4 kg (250 lb) 03/16/22 115.2 kg (254 lb) Input/Output: Intake/Output Summary (Last 24 hours) at 01/21/2024 1001 Last data filed at 01/21/2024 0757 Gross per 24 hour Intake -- Output 4300 ml Net -4300 ml Physical Exam: Physical Exam Constitutional: General: He is not in acute distress. Appearance: He is obese. He is not ill-appearing. HENT: Head: Normocephalic and atraumatic. Eyes: General: No scleral icterus. Extraocular Movements: Extraocular movements intact. Cardiovascular: Rate and Rhythm: Normal rate and regular rhythm. Pulses: Normal pulses. Heart sounds: Normal heart sounds. No murmur heard. No gallop. Pulmonary: Effort: Pulmonary effort is normal. Breath sounds: No wheezing, rhonchi or rales. Abdominal: General: There is no distension. Palpations: Abdomen is soft. Tenderness: There is no abdominal tenderness. Musculoskeletal: Right lower leg: No edema. Left lower leg: No edema. Skin: General: Skin is warm and dry. Comments: Right hip surgical incision site with dressing in place, appears clean/dry Neurological: General: No focal deficit present. Mental Status: He is alert and oriented to person, place, and time. Mental status is at baseline. Motor: No weakness. Comments: Limited range of motion of right hip secondary to pain. Moves extremities spontaneously Psychiatric: Mood and Affect: Mood normal. Behavior: Behavior normal. Labs/Imaging: Recent Results (from the past 24 hour(s)) Bedside Glucose *Place/Obtain serum glucose if >500(>600 MRH) per glucometer. Collection Time: 01/20/24 11:42 AM Result Value Ref Range Bedside glucose 173 (H) 65 - 99 mg/dL Bedside Glucose *Place/Obtain serum glucose if >500(>600 MRH) per glucometer. Collection Time: 01/20/24 3:51 PM Result Value Ref Range Bedside glucose 131 (H) 65 - 99 mg/dL Bedside Glucose *Place/Obtain serum glucose if >500(>600 MRH) per glucometer. Collection Time: 01/20/24 8:52 PM Result Value Ref Range Bedside glucose 205 (H) 65 - 99 mg/dL Magnesium Collection Time: 01/21/24 6:19 AM Result Value Ref Range Magnesium 1.7 (L) 1.8 - 2.6 mg/dL Basic Metabolic Panel Collection Time: 01/21/24 6:19 AM Result Value Ref Range Sodium 137 134 - 146 mmol/L Potassium, Bld 4.7 3.5 - 5.0 mmol/L Chloride 99 98 - 109 mmol/L CO2 26 22 - 32 mmol/L Anion gap 12 5 - 15 mmol/L BUN 13 5 - 23 mg/dL Creatinine 0.71 0.60 - 1.30 mg/dL Glucose 153 (H) 65 - 99 mg/dL Calcium 9.4 8.5 - 10.5 mg/dL eGFR (CKD-EPI)non-race dependent >90 >59 ml/min/1.73sq.m CBC auto differential Collection Time: 01/21/24 6:19 AM Result Value Ref Range White Blood Cells 6.9 4.0 - 11.0 X10E9/L RBC count 4.07 (L) 4.10 - 5.70 X10E12/L Hemoglobin 11.8 (L) 13.0 - 17.0 g/dL Hematocrit 34.9 (L) 39 - 49 % MCV 86 80 - 100 fL MCH 29.0 27 - 34 pg MCHC 33.8 32 - 36 g/dL RDW 16.6 (H) 11.5 - 15.0 % Platelets 129 (L) 150 - 450 X10E9/L MPV 11.4 7 - 12 fL % neutrophils 71.0 % % lymphocytes 18.8 % % monocytes 8.4 % % eosinophils 1.1 % % Basophils 0.7 % Neutrophils Absolute (A) 4.9 1.5 - 6.6 X10E9/L Lymphocytes Absolute 1.3 1.0 - 3.5 X10E9/L Monocytes Absolute 0.6 0 - 0.9 X10E9/L Eosinophils Absolute 0.1 0.0 - 0.4 X10E9/L Basophils Absolute 0.0 0.0 - 0.2 X10E9/L Bedside Glucose *Place/Obtain serum glucose if >500(>600 MRH) per glucometer. Collection Time: 01/21/24 9:06 AM Result Value Ref Range Bedside glucose 147 (H) 65 - 99 mg/dL All available laboratory, imaging, and microbiology data has been personally reviewed in detail, and accessible in full per EMR. Medications: acetaminophen, 1,000 mg, oral, Q6H SADA calcium citrate, 400 mg, oral, TID with meals carvediloL, 6.25 mg, oral, BID with meals cholecalciferol (vitamin D3), 2,000 Units, oral, Daily citalopram, 20 mg, oral, Daily enoxaparin (LOVENOX) injection, 40 mg, subcutaneous, Daily ergocalciferol, 50,000 Units, oral, Weekly fenofibrate micronized, 134 mg, oral, Daily with breakfast gabapentin, 800 mg, oral, 4x Daily insulin lispro, 1-4 Units, subcutaneous, Nightly insulin lispro, 1-5 Units, subcutaneous, TID with meals lidocaine, 1 patch, transdermal, Daily losartan, 100 mg, oral, Daily nicotine, 1 patch, transdermal, Daily pantoprazole, 40 mg, oral, Daily polyethylene glycol, 17 g, oral, BID rifAXIMin, 550 mg, oral, Q12H SADA sennosides-docusate sodium, 2 tablet, oral, BID tamsulosin, 0.4 mg, oral, Nightly ASSESSMENT Acute nondisplaced intertrochanteric right hip fracture secondary to mechanical fall-status post IMnailing on 01/18/2024 Multiple electrolyte disturbances including hypokalemia and hypomagnesemia- improved with replacement Vitamin-D deficiency-initiated on supplementation Chronic thrombocytopenia, in the setting of liver disease-appears near baseline Hypomagnesemia-with ongoing replacement Diabetes mellitus type 2 Hx/o Liver cirrhosis to Hepatitis C appears compensated. Hx/o COPD not in exacerbation Benign essential hypertension. Controlled. Dyslipidemia Hx/o Depression. On Celexa. Hx/o Cervical radiculopathy related to C5-C7 herniated disc. Outpatient follow- up with Neurosurgeryas scheduled next week Degenerative joint disease of the lumbar spine BPH on Flomax Chronic constipation GERD/Esophagitis. Continue Protonix. 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 PT/OT recommend inpatient rehab. Patient initially requesting discharge home with home health, but now more interested in more aggressive rehab Electronically signed by: ABAD DIALLO DO 01/21/24 10:01 AM [facility] Please note that portions of this note were generated using voice recognition M*Modal dictation software. Although every effort was made to ensure the accuracy of this automated bioinformatics team member, some errors in bioinformatics team member may have occurred. This should not affect the overall integrity of the document. * Anne Ventura MD - 01/21/2024 9:34 AM EDT Physical Medicine and Rehabilitation Daily Progress Note Today's Date and Time: 01/21/2024, 9:34 AM Subjective/Chief complaint: Closed fracture of right hip, initial encounter ([facility]) Principal Problem: Closed fracture of right hip, initial encounter ([facility] [place]) Active Problems: Closed displaced intertrochanteric fracture of right femur ([facility]) SUBJECTIVE Resting in bed, denies chest pains chest pains or shortness of breath HPI: 53-year-old male with history of hypertension admitted to the hospital secondary to a fall. Hestarted complaining of right hip pain. He denies any loss of consciousness, syncope or lightheadedness. He describes the pain as sharp character. He denies any numbness or tingling. He has been having difficulty with ambulation. Imaging showed right intertrochanteric fracture. He status post IM nailing. Postoperative weight-bearing as tolerated. He denies any fever or chills. He denies any chest pains or shortness of breath Review of Systems : Respiratory: denies wheezes or SOB Cardiovascular: denies Chest pain, pressure, palpitations Gastrointestinal: denies abdominal pain, diarrhea, constipation of changes in BM Genitourinary, denies burning during urination, urgency, or increased frequency Neurological: denies dizziness and light-headedness. Physical Examination: Vital signs in last 24 hours: Temp: [36.4 C (97.6 F)-36.8 C (98.3 F)] 36.8 C (98.3 F) Pulse: [79-90] 90 Resp: [16-18] 16 BP: (105-128)/(57-93) 128/93 SpO2: [90 %-96 %] 95 % O2 Device: None (Room air) Intake/Output last 3 shifts: I/O last 3 completed shifts: In: - Out: 4500 [Urine:4500] Intake/Output this shift: I/O this shift: In: - Out: 650 [Urine:650] General Appearance: Healthy, alert, active, cooperative, and in no distress Head: Normocephalic, without obvious abnormality, atraumatic Eyes: conjunctivae/corneas clear. PERRL, EOM's intact. Fundi benign. ENT: ENT exam normal, no neck nodes or sinus tenderness Neck: no adenopathy, no carotid bruit, no JVD, supple, symmetrical, trachea midline, and thyroid not enlarged, symmetric, no tenderness/mass/nodules Lungs: clear to auscultation bilaterally Heart: regular rate and rhythm, S1, S2 normal, no murmur, click, rub or gallop Abdomen: soft, non-tender; bowel sounds normal; no masses, no organomegaly Extremities: extremities normal, atraumatic, no cyanosis or edema Skin: Skin color, texture, turgor normal. No rashes or lesions Neurologic: Gait difficulty Laboratory data: I have reviewed the following labs: CBC with Differential:@CBC with Differential: Lab Results Component Value Date WBC 6.9 01/21/2024 HGB 11.8 (L) 01/21/2024 HCT 34.9 (L) 01/21/2024 PLT 129 (L) 01/21/2024 MCV 86 01/21/2024 MCH 29.0 01/21/2024 MCHC 33.8 01/21/2024 RDW 16.6 (H) 01/21/2024 [ BMP: Lab Results Component Value Date GLU 147 (H) 01/21/2024 CALCIUM 9.4 01/21/2024 K 4.7 01/21/2024 CO2 26 01/21/2024 CL 99 01/21/2024 BUN 13 01/21/2024 CREATININE 0.71 01/21/2024 Hepatic Function Panel: No results found for: ALB , PROT @LABRCNT(VANCOTROUGH:3)@ Lab Results Component Value Date CRP 1.1 (H) 04/04/2021 No results found for: SEDRATE All Labs reviewed Imaging Studies: All radiological studies reviewed Medications: acetaminophen, 1,000 mg, oral, Q6H SADA calcium citrate, 400 mg, oral, TID with meals carvediloL, 6.25 mg, oral, BID with meals cholecalciferol (vitamin D3), 2,000 Units, oral, Daily citalopram, 20 mg, oral, Daily enoxaparin (LOVENOX) injection, 40 mg, subcutaneous, Daily ergocalciferol, 50,000 Units, oral, Weekly fenofibrate micronized, 134 mg, oral, Daily with breakfast gabapentin, 800 mg, oral, 4x Daily insulin lispro, 1-4 Units, subcutaneous, Nightly insulin lispro, 1-5 Units, subcutaneous, TID with meals lidocaine, 1 patch, transdermal, Daily losartan, 100 mg, oral, Daily nicotine, 1 patch, transdermal, Daily pantoprazole, 40 mg, oral, Daily polyethylene glycol, 17 g, oral, BID rifAXIMin, 550 mg, oral, Q12H SADA sennosides-docusate sodium, 2 tablet, oral, BID tamsulosin, 0.4 mg, oral, Nightly All Medications reviewed Impression : Patient Active Problem List Diagnosis Facial infection Abdominal pain Closed displaced intertrochanteric fracture of right femur ([facility]) Closed fracture of right hip, initial encounter ([facility]) Recommendations/Plan: Continue PT, OT Min assist x2 with gait Max assist x2 with transfers Lovenox subQ for DVT prophylaxis Continue Neurontin for neuropathic pains Cozaar for hypertension Pain Management Family education Will benefit from inpatient rehab Will follow up with you for rehab needs Anne Ventura MD * Abad Diallo, DO - 01/20/2024 11:05 AM EDT Images from the original note were not included. [facility] Hospitalists Progress Note 01/20/2024 Patient Name: Ruth Smith : 1970 Hospital Day: 4 SUBJECTIVE Patient seated up in chair beside bed this morning, reports pain is controlled with current regimen. Palacios catheter is in place. He initially wanted to go home, but after working with therapy this morning, he is interested in more aggressive therapy including rehab versus inpatient rehab OBJECTIVE Vital Signs: Temp: [36.6 C (97.8 F)-36.8 C (98.2 F)] 36.8 C (98.2 F) Pulse: [80-101] 80 Resp: [16-18] 17 BP: (105-123)/(66-77) 123/77 SpO2: [91 %-96 %] 93 % O2 Device: None (Room air) Weight: Body mass index is 33.65 kg/m . Admission weight: 113.4 kg (250 lb) Wt Readings from Last 3 Encounters: 01/18/24 115.7 kg (255 lb) 08/19/22 113.4 kg (250 lb) 03/16/22 115.2 kg (254 lb) Input/Output: Intake/Output Summary (Last 24 hours) at 01/20/2024 1105 Last data filed at 01/19/2024 2103 Gross per 24 hour Intake -- Output 1200 ml Net -1200 ml Physical Exam: Physical Exam Constitutional: General: He is not in acute distress. Appearance: He is obese. He is not ill-appearing. HENT: Head: Normocephalic and atraumatic. Eyes: General: No scleral icterus. Extraocular Movements: Extraocular movements intact. Cardiovascular: Rate and Rhythm: Normal rate and regular rhythm. Pulses: Normal pulses. Heart sounds: Normal heart sounds. No murmur heard. No gallop. Pulmonary: Effort: Pulmonary effort is normal. Breath sounds: No wheezing, rhonchi or rales. Abdominal: General: There is no distension. Palpations: Abdomen is soft. Tenderness: There is no abdominal tenderness. Musculoskeletal: Right lower leg: No edema. Left lower leg: No edema. Skin: General: Skin is warm and dry. Comments: Right hip surgical incision site with dressing in place, appears clean/dry Neurological: General: No focal deficit present. Mental Status: He is alert and oriented to person, place, and time. Mental status is at baseline. Motor: No weakness. Comments: Limited range of motion of right hip secondary to pain. Moves extremities spontaneously Psychiatric: Mood and Affect: Mood normal. Behavior: Behavior normal. Labs/Imaging: Recent Results (from the past 24 hour(s)) Bedside Glucose *Place/Obtain serum glucose if >500(>600 MRH) per glucometer. Collection Time: 01/19/24 11:53 AM Result Value Ref Range Bedside glucose 243 (H) 65 - 99 mg/dL Bedside Glucose *Place/Obtain serum glucose if >500(>600 MRH) per glucometer. Collection Time: 01/19/24 2:39 PM Result Value Ref Range Bedside glucose 139 (H) 65 - 99 mg/dL Bedside Glucose *Place/Obtain serum glucose if >500(>600 MRH) per glucometer. Collection Time: 01/19/24 5:52 PM Result Value Ref Range Bedside glucose 223 (H) 65 - 99 mg/dL Bedside Glucose *Place/Obtain serum glucose if >500(>600 MRH) per glucometer. Collection Time: 01/19/24 9:09 PM Result Value Ref Range Bedside glucose 201 (H) 65 - 99 mg/dL Basic Metabolic Panel Collection Time: 01/20/24 7:07 AM Result Value Ref Range Sodium 136 134 - 146 mmol/L Potassium, Bld 4.3 3.5 - 5.0 mmol/L Chloride 102 98 - 109 mmol/L CO2 24 22 - 32 mmol/L Anion gap 10 5 - 15 mmol/L BUN 14 5 - 23 mg/dL Creatinine 0.64 0.60 - 1.30 mg/dL Glucose 119 (H) 65 - 99 mg/dL Calcium 8.8 8.5 - 10.5 mg/dL eGFR (CKD-EPI)non-race dependent >90 >59 ml/min/1.73sq.m CBC without diff Collection Time: 01/20/24 7:07 AM Result Value Ref Range White Blood Cells 6.7 4.0 - 11.0 X10E9/L RBC count 4.09 (L) 4.10 - 5.70 X10E12/L Hemoglobin 11.8 (L) 13.0 - 17.0 g/dL Hematocrit 34.9 (L) 39 - 49 % MCV 85 80 - 100 fL MCH 28.7 27 - 34 pg MCHC 33.7 32 - 36 g/dL RDW 16.4 (H) 11.5 - 15.0 % Platelets 71 (L) 150 - 450 X10E9/L MPV 11.0 7 - 12 fL Magnesium Collection Time: 01/20/24 7:07 AM Result Value Ref Range Magnesium 1.6 (L) 1.8 - 2.6 mg/dL All available laboratory, imaging, and microbiology data has been personally reviewed in detail, and accessible in full per EMR. Medications: acetaminophen, 1,000 mg, oral, Q6H SADA calcium citrate, 400 mg, oral, TID with meals carvediloL, 6.25 mg, oral, BID with meals cholecalciferol (vitamin D3), 2,000 Units, oral, Daily citalopram, 20 mg, oral, Daily enoxaparin (LOVENOX) injection, 40 mg, subcutaneous, Daily ergocalciferol, 50,000 Units, oral, Weekly fenofibrate micronized, 134 mg, oral, Daily with breakfast gabapentin, 800 mg, oral, 4x Daily insulin lispro, 1-4 Units, subcutaneous, Nightly insulin lispro, 1-5 Units, subcutaneous, TID with meals lidocaine, 1 patch, transdermal, Daily losartan, 100 mg, oral, Daily nicotine, 1 patch, transdermal, Daily pantoprazole, 40 mg, oral, Daily polyethylene glycol, 17 g, oral, BID rifAXIMin, 550 mg, oral, Q12H SADA sennosides-docusate sodium, 2 tablet, oral, BID tamsulosin, 0.4 mg, oral, Nightly ASSESSMENT Acute nondisplaced intertrochanteric right hip fracture secondary to mechanical fall-status post IMnailing on 01/18/2024 Multiple electrolyte disturbances including hypokalemia and hypomagnesemia- improved with replacement Vitamin-D deficiency-initiated on supplementation Chronic thrombocytopenia, in the setting of liver disease-appears near baseline Hypomagnesemia Diabetes mellitus type 2 Hx/o Liver cirrhosis to Hepatitis C appears compensated. Hx/o COPD not in exacerbation Benign essential hypertension. Controlled. Dyslipidemia Hx/o Depression. On Celexa. Hx/o Cervical radiculopathy related to C5-C7 herniated disc. Outpatient follow- up with Neurosurgeryas scheduled next week Degenerative joint disease of the lumbar spine BPH on Flomax Chronic constipation GERD/Esophagitis. Continue Protonix. PLAN Monitor on ortho floor Status post IM nailing on 01/18/2024 Continue supportive measures including pain control as needed Physical therapy and occupational therapy evaluation noted Physical medicine rehab consultation for possible inpatient rehab Perioperative antibiotics per ortho On chemical DVT prophylaxis with SQ Lovenox-discussed with ortho Continue with vitamin-D supplementation, 32812 units weekly x4 weeks Continue sliding scale insulin/Accuchecks Continue other home medications the diet following reconciliation Social work for discharge planning Monitor and replace electrolytes as needed DVT prophylaxis: SQ Lovenox Code status: Full code Discharge planning: Status post surgery on 01/18/2024. PT/OT recommend inpatient rehab. Patient initially requesting discharge home with home health, but now more interested in more aggressive rehab Electronically signed by: ABAD DIALLO DO 01/20/24 11:05 AM [facility], [facility] Please note that portions of this note were generated using voice recognition [employer] dictation software. Although every effort was made to ensure the accuracy of this automated bioinformatics team member, some errors in bioinformatics team member may have occurred. This should not affect the overall integrity of the document. * Vilma Beckwith PA-C - 01/20/2024 9:34 AM EDT Orthopedic Progress Note Subjective Patient resting in bed. He notes soreness to right hip. No new numbness or tingling to lower extremities in comparison with his baseline. Objective BP 123/77 Pulse 80 Temp 36.8 C (98.2 F) (Oral) Resp 17 Ht 185.4 cm (6' 0.99 ) Wt 115.7 kg(255 lb) SpO2 93% BMI 33.65 kg/m O2 Device: None (Room air) General: alert, appears stated age, and cooperative Neurovascular: neurovascularly intact RLE: dressings intact, SILT s/s/sp/dp/slight decrease to LT in tibial nerve, + motor fxn EHL, FHL, DF, PF. Comparments & calves soft and compressible Palpable pulses with BCR x 5 Wound: Dressings removed, there is appreciable myah-incisional ecchymosis however no significant active drainage or erythema, new dressings placed LABS Lab Results Component Value Date WBC 6.7 01/20/2024 HGB 11.8 (L) 01/20/2024 HCT 34.9 (L) 01/20/2024 MCV 85 01/20/2024 PLT 71 (L) 01/20/2024 Lab Results Component Value Date GLU 119 (H) 01/20/2024 CALCIUM 8.8 01/20/2024 K 4.3 01/20/2024 CO2 24 01/20/2024 BUN 14 01/20/2024 CREATININE 0.64 01/20/2024 Assessment/Plan Right intertrochanteric hip fracture status post short IMN PLAN Weight-bearing as tolerated right lower extremity. Okay for range of motion to right lower extremity as tolerated. Mobilize with assistive devices as able. Dry simple dressings to right hip incisions daily as needed. Ice to right hip and thigh as needed. SCDs/Lovenox for DVT prophylaxis. Will continue to monitor platelets so that they do not drop below50,000. Vitamin-D calcium supplementation. Continue medical/specialty management. Disposition planning: Therapy recommending inpatient rehab however patient wants to go home with home care, awaiting acceptance from home care providers Vilma Beckwith PA-C 01/20/24 0936 * Abad Diallo DO - 01/19/2024 10:33 AM EDT Images from the original note were not included. [facility] Progress Note 01/19/2024 Patient Name: Ruth Smith : 1970 Hospital Day: 3 SUBJECTIVE Patient is status post I MN on 01/18/2024. Reports pain is somewhat better controlled than yesterday. Noted increase in pain regimen from Orthopedic surgery this morning. He denies any fevers, chills, nausea, vomiting. He is to work with therapy later today OBJECTIVE Vital Signs: Temp: [36 C (96.8 F)-36.8 C (98.3 F)] 36.7 C (98.1 F) Pulse: [84-100] 97 Resp: [11-18] 16 BP: (122-148)/(81-109) 138/88 SpO2: [90 %-100 %] 95 % O2 Device: None (Room air) O2 Flow Rate (L/min): [3 L/min-10 L/min] 3 L/min Weight: Body mass index is 33.65 kg/m . Admission weight: 113.4 kg (250 lb) Wt Readings from Last 3 Encounters: 01/18/24 115.7 kg (255 lb) 08/19/22 113.4 kg (250 lb) 03/16/22 115.2 kg (254 lb) Input/Output: Intake/Output Summary (Last 24 hours) at 01/19/2024 1033 Last data filed at 01/19/2024 0404 Gross per 24 hour Intake 1100 ml Output 775 ml Net 325 ml Physical Exam: Physical Exam Constitutional: General: He is not in acute distress. Appearance: He is obese. He is not ill-appearing. HENT: Head: Normocephalic and atraumatic. Eyes: General: No scleral icterus. Extraocular Movements: Extraocular movements intact. Cardiovascular: Rate and Rhythm: Normal rate and regular rhythm. Pulses: Normal pulses. Heart sounds: Normal heart sounds. No murmur heard. No gallop. Pulmonary: Effort: Pulmonary effort is normal. Breath sounds: No wheezing, rhonchi or rales. Abdominal: General: There is no distension. Palpations: Abdomen is soft. Tenderness: There is no abdominal tenderness. Musculoskeletal: Right lower leg: No edema. Left lower leg: No edema. Skin: General: Skin is warm and dry. Comments: Right hip surgical incision site with dressing in place, appears clean/dry Neurological: General: No focal deficit present. Mental Status: He is alert and oriented to person, place, and time. Mental status is at baseline. Motor: No weakness. Comments: Limited range of motion of right hip secondary to pain. Moves extremities spontaneously Psychiatric: Mood and Affect: Mood normal. Behavior: Behavior normal. Labs/Imaging: Recent Results (from the past 24 hour(s)) Bedside Glucose *Place/Obtain serum glucose if >500(>600 MRH) per glucometer. Collection Time: 01/18/24 1:41 PM Result Value Ref Range Bedside glucose 143 (H) 65 - 99 mg/dL Bedside Glucose *Place/Obtain serum glucose if >500(>600 MRH) per glucometer. Collection Time: 01/18/24 4:48 PM Result Value Ref Range Bedside glucose 188 (H) 65 - 99 mg/dL Bedside Glucose *Place/Obtain serum glucose if >500(>600 MRH) per glucometer. Collection Time: 01/18/24 6:02 PM Result Value Ref Range Bedside glucose 197 (H) 65 - 99 mg/dL Bedside Glucose *Place/Obtain serum glucose if >500(>600 MRH) per glucometer. Collection Time: 01/18/24 9:47 PM Result Value Ref Range Bedside glucose 238 (H) 65 - 99 mg/dL Basic Metabolic Panel Collection Time: 01/19/24 6:06 AM Result Value Ref Range Sodium 136 134 - 146 mmol/L Potassium, Bld 4.5 3.5 - 5.0 mmol/L Chloride 102 98 - 109 mmol/L CO2 23 22 - 32 mmol/L Anion gap 11 5 - 15 mmol/L BUN 13 5 - 23 mg/dL Creatinine 0.57 (L) 0.60 - 1.30 mg/dL Glucose 150 (H) 65 - 99 mg/dL Calcium 9.0 8.5 - 10.5 mg/dL eGFR (CKD-EPI)non-race dependent >90 >59 ml/min/1.73sq.m CBC without diff Collection Time: 01/19/24 6:06 AM Result Value Ref Range White Blood Cells 9.8 4.0 - 11.0 X10E9/L RBC count 4.60 4.10 - 5.70 X10E12/L Hemoglobin 13.4 13.0 - 17.0 g/dL Hematocrit 38.9 (L) 39 - 49 % MCV 85 80 - 100 fL MCH 29.1 27 - 34 pg MCHC 34.4 32 - 36 g/dL RDW 16.5 (H) 11.5 - 15.0 % Platelets 96 (L) 150 - 450 X10E9/L MPV 11.0 7 - 12 fL Bedside Glucose *Place/Obtain serum glucose if >500(>600 MRH) per glucometer. Collection Time: 01/19/24 8:36 AM Result Value Ref Range Bedside glucose 141 (H) 65 - 99 mg/dL All available laboratory, imaging, and microbiology data has been personally reviewed in detail, and accessible in full per EMR. Medications: acetaminophen, 1,000 mg, oral, Q6H SADA calcium citrate, 400 mg, oral, TID with meals carvediloL, 6.25 mg, oral, BID with meals cholecalciferol (vitamin D3), 2,000 Units, oral, Daily citalopram, 20 mg, oral, Daily enoxaparin (LOVENOX) injection, 40 mg, subcutaneous, Daily ergocalciferol, 50,000 Units, oral, Weekly fenofibrate micronized, 134 mg, oral, Daily with breakfast gabapentin, 800 mg, oral, 4x Daily insulin lispro, 1-4 Units, subcutaneous, Nightly insulin lispro, 1-5 Units, subcutaneous, TID with meals lidocaine, 1 patch, transdermal, Daily losartan, 100 mg, oral, Daily nicotine, 1 patch, transdermal, Daily pantoprazole, 40 mg, oral, Daily polyethylene glycol, 17 g, oral, BID rifAXIMin, 550 mg, oral, Q12H SADA sennosides-docusate sodium, 2 tablet, oral, BID tamsulosin, 0.4 mg, oral, Nightly ASSESSMENT Acute nondisplaced intertrochanteric right hip fracture secondary to mechanical fall-status post IMnailing on 01/18/2024 Multiple electrolyte disturbances including hypokalemia and hypomagnesemia- improved with replacement Vitamin-D deficiency-initiated on supplementation Chronic thrombocytopenia, in the setting of liver disease-appears near baseline Diabetes mellitus type 2 Hx/o Liver cirrhosis to Hepatitis C appears compensated. Hx/o COPD not in exacerbation Benign essential hypertension. Controlled. Dyslipidemia Hx/o Depression. On Celexa. Hx/o Cervical radiculopathy related to C5-C7 herniated disc. Outpatient follow- up with Neurosurgeryas scheduled next week Degenerative joint disease of the lumbar spine BPH on Flomax Chronic constipation GERD/Esophagitis. Continue Protonix. PLAN Monitor on ortho floor Status post IM nailing on 01/18/2024 Continue supportive measures including pain control as needed Physical therapy and occupational therapy evaluation is pending Perioperative antibiotics per ortho Initiated on chemical DVT prophylaxis with SQ Lovenox-discussed with ortho Continue with vitamin-D supplementation, 23781 units weekly x4 weeks Continue sliding scale insulin/Accuchecks Continue other home medications the diet following reconciliation Social work for discharge planning DVT prophylaxis: SQ Lovenox Code status: Full code Discharge planning: Status post surgery on 01/18/2024. Await PT/OT Electronically signed by: ABAD DIALLO DO 01/19/24 10:33 AM [facility], [facility] Please note that portions of this note were generated using voice recognition M*[employer] dictation software. Although every effort was made to ensure the accuracy of this automated bioinformatics team member, some errors in bioinformatics team member may have occurred. This should not affect the overall integrity of the document. * Angelica Odom PA-C - 01/19/2024 10:10 AM EDT Images from the original note were not included. DAILY PROGRESS NOTE: Subjective Patient c/o pain to right hip. Pain medications providing some relief. Patient has not yet worked with PT or been out of bed. Objective Physical Exam: Vitals: BP 138/88 Pulse 97 Temp 36.7 C (98.1 F) (Oral) Resp 16 Ht 185.4 cm (6' 0.99 ) Wt 115.7 kg (255 lb) SpO2 95% BMI 33.65 kg/m General: Well-nourished, Well-developed and Age appropriate LOC: awake and alert Orientation: oriented to person, place, time, and recent events Psych: Pleasant and Cooperative Station: Lying supine on hospital bed Musculoskeletal: Right lower extremity: Surgical sites clean dry and intact with dressings in place. Thigh and calf compartments soft and compressible. Neuropathy present at baseline. Intact ankle plantar flexion anddorsiflexion present. Palpable 2+ DP pulse Labs: Lab Results Component Value Date WBC 9.8 01/19/2024 HGB 13.4 01/19/2024 HCT 38.9 (L) 01/19/2024 MCV 85 01/19/2024 PLT 96 (L) 01/19/2024 Lab Results Component Value Date GLU 141 (H) 01/19/2024 CALCIUM 9.0 01/19/2024 K 4.5 01/19/2024 CO2 23 01/19/2024 BUN 13 01/19/2024 CREATININE 0.57 (L) 01/19/2024 Lab Results Component Value Date VITD25 20.4 (L) 01/17/2024 Assessment/Plan Ruth Smith is a 53 y.o. male with status post IM nail right intertrochanteric hip fracture Plan: Continue current plan of care: yes. Weightbear as tolerated right lower extremity 24 hours IV antibiotics DVT prophylaxis: Lovenox, EPC cuffs, early immobilization PT/OT Will increase pain medications to roxicodone 5-10 mg every 3 hours p.r.n. pain Calcium and vitamin-D for bone health and healing Discharge planning: Pending physical therapy evaluation LOS: 2 days LUIS BANUELOS PA-C 01/19/24 1028 * Mara Padilla, [facility] - 01/18/2024 4:43 PM EDT [facility] [place] Department of Pharmacy Pharmacist to Physician Communication The dose of cefazolin for surgical prophylaxis has been changed to 2 grams every 8 hours for 2 doses per the [facility] approved renal dosing guidelines, based on an estimated creatinine clearance is 134.8 mL/min (by C-G formula based on SCr of 0.7 mg/dL). Actual body weight <120kg. Thank you, Mara Padilla [facility], PharmD Ext [phone] * Abad Diallo DO - 01/18/2024 10:50 AM EDT Images from the original note were not included. [facility] Hospitalists Progress Note 01/18/2024 Patient Name: Ruth Smith : 1970 Hospital Day: 2 SUBJECTIVE Patient resting in bed, awakens easily to verbal stimuli. Continues to have pain, predominantly including his hip and low back this morning he states. He underwent x-ray of his low back this morning which revealed degenerative joint disease of the lumbar spine. OBJECTIVE Vital Signs: Temp: [36.4 C (97.6 F)-36.9 C (98.4 F)] 36.7 C (98 F) Pulse: [78-87] 87 Resp: [16-22] 20 BP: (127-152)/(86-122) 133/89 SpO2: [85 %-98 %] 95 % O2 Device: Nasal cannula O2 Flow Rate (L/min): [0 L/min-3 L/min] 2 L/min Weight: Body mass index is 33.64 kg/m . Admission weight: 113.4 kg (250 lb) Wt Readings from Last 3 Encounters: 01/17/24 115.7 kg (255 lb) 08/19/22 113.4 kg (250 lb) 03/16/22 115.2 kg (254 lb) Input/Output: Intake/Output Summary (Last 24 hours) at 01/18/2024 1050 Last data filed at 01/18/2024 0551 Gross per 24 hour Intake -- Output 2200 ml Net -2200 ml Physical Exam: Physical Exam Constitutional: General: He is not in acute distress. Appearance: He is obese. He is not ill-appearing. HENT: Head: Normocephalic and atraumatic. Eyes: General: No scleral icterus. Extraocular Movements: Extraocular movements intact. Cardiovascular: Rate and Rhythm: Normal rate and regular rhythm. Pulses: Normal pulses. Heart sounds: Normal heart sounds. No murmur heard. No gallop. Pulmonary: Effort: Pulmonary effort is normal. Breath sounds: No wheezing, rhonchi or rales. Abdominal: General: There is no distension. Palpations: Abdomen is soft. Tenderness: There is no abdominal tenderness. Musculoskeletal: Right lower leg: No edema. Left lower leg: No edema. Skin: General: Skin is warm and dry. Neurological: General: No focal deficit present. Mental Status: He is alert and oriented to person, place, and time. Mental status is at baseline. Motor: No weakness. Comments: Limited range of motion of right hip secondary to pain. Moves extremities spontaneously Psychiatric: Mood and Affect: Mood normal. Behavior: Behavior normal. Labs/Imaging: Recent Results (from the past 24 hour(s)) Type and screen(includes indirect yolanda) Collection Time: 01/17/24 11:30 AM Result Value Ref Range ABO O RH Positive Antibody Screen Negative Troponin I, High Sensitivity 1 Hour Collection Time: 01/17/24 11:45 AM Result Value Ref Range 1 Hour Trop I, High Sensitivity 5 <21 ng/L Bedside Glucose *Place/Obtain serum glucose if >500(>600 MRH) per glucometer. Collection Time: 01/17/24 5:54 PM Result Value Ref Range Bedside glucose 94 65 - 99 mg/dL Urinalysis Collection Time: 01/17/24 8:45 PM Result Value Ref Range Color YELLOW YELLOW^YELLOW Turbidity CLEAR CLEAR^CLEAR Specific gravity 1.018 1.003 - 1.035 Nitrite Negative Negative^Negative Ph urine 8.5 5.0 - 8.5 Leukocyte esterase Negative Negative^Negative Protein Trace (A) Negative^Negative mg/dL Glucose, Ur Negative Negative^Negative mg/dL Ketones urine Negative Negative^Negative mg/dL Urobilinogen <1.1 <1.1 eu/dL Bilirubin, urine Negative Negative^Negative Hemoglobin Trace (A) Negative^Negative Mucus, UA PRESENT (A) NONE^NONE RBC 7 (H) 0 - 5 /hpf WBC 2 0 - 5 /hpf Hemoglobin A1c Collection Time: 01/18/24 2:57 AM Result Value Ref Range Hemoglobin A1C 6.6 (H) 4.4 - 5.6 % Average glucose 143 mg/dL Basic Metabolic Panel Collection Time: 01/18/24 2:57 AM Result Value Ref Range Sodium 138 134 - 146 mmol/L Potassium, Bld 3.9 3.5 - 5.0 mmol/L Chloride 101 98 - 109 mmol/L CO2 28 22 - 32 mmol/L Anion gap 9 5 - 15 mmol/L BUN 8 5 - 23 mg/dL Creatinine 0.70 0.60 - 1.30 mg/dL Glucose 123 (H) 65 - 99 mg/dL Calcium 9.4 8.5 - 10.5 mg/dL eGFR (CKD-EPI)non-race dependent >90 >59 ml/min/1.73sq.m CBC without diff Collection Time: 01/18/24 2:57 AM Result Value Ref Range White Blood Cells 6.2 4.0 - 11.0 X10E9/L RBC count 5.21 4.10 - 5.70 X10E12/L Hemoglobin 15.2 13.0 - 17.0 g/dL Hematocrit 44.5 39 - 49 % MCV 86 80 - 100 fL MCH 29.2 27 - 34 pg MCHC 34.2 32 - 36 g/dL RDW 17.0 (H) 11.5 - 15.0 % Platelets 80 (L) 150 - 450 X10E9/L MPV 10.8 7 - 12 fL Magnesium Collection Time: 01/18/24 3:00 AM Result Value Ref Range Magnesium 1.7 (L) 1.8 - 2.6 mg/dL Bedside Glucose *Place/Obtain serum glucose if >500(>600 MRH) per glucometer. Collection Time: 01/18/24 7:24 AM Result Value Ref Range Bedside glucose 119 (H) 65 - 99 mg/dL All available laboratory, imaging, and microbiology data has been personally reviewed in detail, and accessible in full per EMR. Medications: [Transfer Hold] acetaminophen, 1,000 mg, oral, Q6H SADA ceFAZolin (ANCEF) IV, 3,000 mg, intravenous, Once [Transfer Hold] cholecalciferol, 50,000 Units, oral, Weekly [Transfer Hold] citalopram, 20 mg, oral, Daily [Transfer Hold] fenofibrate micronized, 134 mg, oral, Daily with breakfast fentaNYL, , , [Transfer Hold] gabapentin, 800 mg, oral, 4x Daily [Transfer Hold] insulin lispro, 1-4 Units, subcutaneous, Nightly [Transfer Hold] insulin lispro, 1-5 Units, subcutaneous, TID with meals [Transfer Hold] lidocaine, 1 patch, transdermal, Daily [Transfer Hold] nicotine, 1 patch, transdermal, Daily [Transfer Hold] pantoprazole, 40 mg, oral, Daily [Transfer Hold] polyethylene glycol, 17 g, oral, BID scopolamine, 1 patch, transdermal, Once [Transfer Hold] sennosides-docusate sodium, 2 tablet, oral, BID sodium chloride, 3 mL, intravenous, Q12H SADA sodium chloride, 3 mL, intravenous, Q12H SADA [Transfer Hold] tamsulosin, 0.4 mg, oral, Nightly ASSESSMENT Acute nondisplaced intertrochanteric right hip fracture secondary to mechanical fall-with Orthopedic surgery intervention planned for 01/18/2024 Multiple electrolyte disturbances including hypokalemia and hypomagnesemia-with ongoing replacement Vitamin-D deficiency Chronic thrombocytopenia, in the setting of liver disease Diabetes mellitus type 2 Hx/o Liver cirrhosis to Hepatitis C appears compensated. Hx/o COPD not in exacerbation Benign essential hypertension. Controlled. Dyslipidemia Hx/o Depression. On Celexa. Hx/o Cervical radiculopathy related to C5-C7 herniated disc. Outpatient follow- up with Neurosurgeryas scheduled next week Degenerative joint disease of the lumbar spine BPH on Flomax Chronic constipation GERD/Esophagitis. Continue Protonix. PLAN Monitor on ortho floor NPO in preparation for surgery later today 01/18/2024 PT/OT consultation postoperatively Supportive care including pain control Perioperative antibiotics per ortho Start chemical DVT PPX once okay with ortho Start vitamin-D supplementation, 23907 units weekly x4 weeks Continue sliding scale insulin/Accuchecks Continue other home medications the diet following reconciliation DVT prophylaxis: SCDs. Start chemical DVT PPX once okay with ortho Code status: Full code Discharge planning: Pending clinical course. Surgery planned for today. Will need PT/OT evaluation thereafter Electronically signed by: ABAD DIALLO DO 01/18/24 10:50 AM [facility], [facility] Please note that portions of this note were generated using voice recognition [employer] dictation software. Although every effort was made to ensure the accuracy of this automated bioinformatics team member, some errors in bioinformatics team member may have occurred. This should not affect the overall integrity of the document. [facility] [place]* Discharge Planning Note - Mendoza Pritchett - 01/22/2024 2:06 PM EDT DISCHARGE PLANNING NOTE Referral sent to [facility], a division of [facility] P# [phone] [calling report];/[facility] (P# [calling report]; F# ) [facility]06-10-2024 Progress note* Discharge Planning Note - JEWEL Crenshaw - 01/22/2024 2:01 PM EDT DISCHARGE PLANNING NOTE SW informed that [facility] rehab does not currently have a bed available. GABRIEL discussed with pt and reviewed other IPR options. Pt is agreeable to [facility] rehab. Referral sent, await acceptance. - JEWEL Crenshaw 01/22/24 2:01 PM [facility] [place]06-10-2024 Plan of care note* Plan of Care - Miranda Dudley RN - 01/22/2024 12:56 PM EDT Problem: Pain Goal: Patient goal is pain score less than 4, able to rest, and participant in treatment plan as appropriate Description: INTERVENTIONS: 1. Encourage patient or legal charter representative to report early pain and ask for pain medicine when needed 2. Assess pain using appropriate pain scale and include the scale used when documenting 3. Administer analgesics based on type and severity of pain and evaluate response within appropriate time frame 4. Implement non-pharmacological measures as appropriate and evaluate response 5. Consider cultural and social influences on pain and pain management 6. Notify LIP if interventions ineffective or patient reports new pain 7. Monitor vital signs including pulse ox 8. Reassess pain per policy 9. Teach patient or legal charter representative interventions for comforting Outcome: Adequate for Discharge Note: Evaluation of progress towards goal: patient FLACC rate is 0/10, 1 hour after oral pain medication given during shift, patient vital signs and pain are assessed and charted frequently, will continue to monitor during shift Problem: Safety Goal: Patient will be injury free during hospitalization Description: INTERVENTIONS: 1. Assess patient's risk for falls and implement fall prevention plan of care per policy 2. Provide and maintain a safe environment 3. Proper use of double Identifiers 4. Medication administration using the 5 rights 5. Hand hygiene 6. Specimens are labeled at the bedside 7. Instruct patient/ patient charter representative about use of safety devices 8. Include patient/ patient charter representative in decisions related to safety Outcome: Adequate for Discharge Note: Evaluation of progress towards goal: Patient safety maintained during shift with use of 5 rights, patient and staff using hygiene, patient environment free of harm and debrie. Will continue to monitor during shift. Problem: Infection Goal: Absence of infection during hospitalization Description: Interventions: 1. Assess and monitor for signs and symptoms of infection 2. Monitor lab/diagnostic results 3. Monitor all insertion sites i.e., indwelling lines, tubes and drains 4. Monitor endotracheal (as able) and nasal secretions for changes in amount and color 5. Administer medications as ordered 6. Instruct and encourage patient and family to use good hand hygiene technique 7. Identify and instruct patient/patient charter representative in use of appropriate isolation precautionsfor identified infection/symptoms 8. Provide and discuss with patient/patient charter representative on educational MDRO sheet 9. Encourage and monitor nutritional status daily and consult maxillofacial pathology if indicated 10. Implement neutropenic guidelines as needed 11. Review exposure to history of communicable disease and recent travel history on admission 12. Encourage annual influenza vaccine 13. Encourage pneumonia vaccine Outcome: Adequate for Discharge Note: Evaluation of progress towards goal: patient assessed for signs and symptoms of infection, Patients labs monitored during shift, Patient encouraged and demonstrates hand hygiene, all lines are assessed and charted, Will continue to monitor during shift for any changes. Problem: Knowledge Deficit Goal: Patient/patient charter representative demonstrates understanding of disease process, treatment plan,medications, and discharge instructions Description: INTERVENTIONS 1. Complete learning assessment and assess knowledge base 2. Provide teaching at level of understanding 3. Provide teaching via preferred learning method(s) Outcome: Progressing Note: Evaluation of progress towards goal: Patient updated on POC he verbalizes understanding and voices no concerns at this time. Will continue to update and assess patient throughout shift for needs. Problem: Moderate - High Risk Fall Score Description: Arredondo Fall Score of =/> 25 or indicated by [facility] Assessment Goal: Patient should be free from fall Description: Interventions: 1. [place] to environment 2. Hourly rounds addressing the 4 P's (Pain, Positioning, Possessions, Potty) 3. Clear area of hazards (spills, clutter, electrical cords, unnecessary equipment) 4. Place equipment (bed & TV controls, call light, phone, urinal) within reach 5. Encourage patient to wear glasses and hearing aides as appropriate 6. Maintain bed in lowest position 7. Lock wheels on bed/wheelchair 8. Provide adequate lighting, including night light 9. Assess need for additional bedding, food/fluids, pain med's prior to sleep/routinely 10. Provide gripper slippers or personal non-skid footwear 11. Teach patient and patient charter representative to maintain environment for safety and engage in all aspects of fall prevention program 12. Remind patient to call for help before getting out of bed 13. Initiate bed/chair/exit alarms supportive devices as appropriate, (chair wedge, no-skid floor mat, raised edge mattress, hip protectors) 14. Locate patient bed assignment for optimal visualization 15. Evaluate and identify Safe Patient Handling Equipment needs 16. Provide supervision when out of bed or chair 17. Utilize gait belt as needed to assist with ambulation 18. Place adaptive equipment (cane, walker) within reach 19. Request patient charter representative bring adaptive equipment/mobility aids from home or obtain and provide as needed 20. Consult pharmacy regarding effects of med's affecting mobility, cognition, and alternatives 21. Obtain physician order for PT if risk factors associated with mobility are present 22. Obtain physician order for OT as appropriate 23. Utilize diversional activities 24. Educate patient and patient charter representative how to maintain a safe environment during visitationtimes (notify nurse prior to leaving bedside) 25. Consider appropriateness of medical or non-medical librarian 26. Set up voiding schedule as appropriate (every 2 hours) Outcome: Progressing Note: Evaluation of progress towards goal: Patient remains free from falls during shift, patient transfers with walker steady gait, 20 feet, patient continues to collaborate with PT/OT for therapy needs. patients room is free of clutter and debrie, patients bed remains locked and in lowest position, hourly rounding continues, patient uses call light to notify staff of needs, appropriate safe patient handling used during shift. Will continue to monitor during shift. ;; [facility]06-10-2024 Progress note* Discharge Planning Note - JEWEL Crenshaw - 01/22/2024 11:17 AM EDT DISCHARGE PLANNING NOTE DC plan now will be IP rehab, SW notified that pt is now requesting to go to IP rehab, pt does not feel like he is ready to go home yet. SW discussed IP rehab with pt and pt is now agreeable. GABRIEL reviewed IPR options with pt and pt would like to try [facility] IP rehab. Referral sent. Awaiting acceptance. W/C tx cert in dc packet. - JEWEL Crenshaw 01/22/24 11:19 AM [facility]06-10-2024 Progress note* Discharge Planning Note - Jackie Caal - 01/22/2024 11:13 AM EDT DISCHARGE PLANNING NOTE Referral to 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 - ALICIA Banda - 01/22/2024 8:31 AM EDT Occupational Therapy Treatment Discharge Recommendations OT Recommendations : Inpatient Rehab 6 Clicks: Daily Activity Putting on and taking off regular lower body clothing?: A lot Bathing (including washing, rinsing, drying)?: A lot Toileting, which includes using toilet, bedpan or urinal?: A lot Putting on and taking off regular upper body clothing?: A little Taking care of personal grooming such as brushing teeth?: A little Eating meals?: None Scoring Daily Activity Raw Score: 16 CMS G Code Modifier: CK OT Treatment/Interventions: Functional transfer training, UE strengthening/ROM, Endurance training,Patient/family training, Equipment eval/education, Balance, Compensatory technique education, Functional activities, Bed mobility OT Frequency: 6-7days/week OT Duration: Until discharge Assessment Patient Assessment Therapy Problem List: Decreased ADL status, Decreased balance, Decreased endurance, Decreased high-level ADLs, Decreased mobility, Decreased safe judgement during ADL, Decreased self-care trans, Decreased LE strength, Decreased UE strength Patient Response to Treatment: Slow progress, decreased activity tolerance Mood/Affect: Appropriate for circumstances Rehab Prognosis: Good, With continued OT status post acute discharge Visit RN Communication: Yes Medical Record Reviewed: Yes OT Type of Visit: Treatment Precautions Activity: early mobility: pass; ok to see per RN Equipment: gait belt, RW Weight Bearing Status: WBAT RLE Telemetry/Paper Machine Back Tender: No Oxygen Used: room air Other: fall risk Pain Assessment Pain Assessment: 0-10 Pain Score: 7 Pain Type: Surgical pain Pain Location: Hip, Knee Pain Orientation: Right Pain Intervention(s): Repositioned, Ambulation/increased activity Response to Interventions: Pain unchanged, Quiet ADL / IADL Hand Dominance: Right Where Assessed: Edge of bed, At toilet, Standing at sink Grooming Assistance: Standby assist Toilet/Commode Assistance: Mod assist LE Dressing Assistance: Mod assist Footwear Assistance: Mod assist Other: Pt sat at EOB and was able to exchange L sock. Single Stayer Operator assisted with R foot. Pt then donned shorts with assist to thread the RLE and pt able to thread LLE. When standing, pt able to pull them up with some assist. Pt then amb to toilet and completed toileting with mod assist for toilet transfer and pericare and managing shorts. Pt then stood at sink to wash hands with SBA for safety. Increased time and effort for all ADLs this date. Home Management - IADL Other: Pt sat at EOB and was able to exchange L sock. Single Stayer Operator assisted with R foot. Pt then donned shorts with assist to thread the RLE and pt able to thread LLE. When standing, pt able to pull them up with some assist. Pt then amb to toilet and completed toileting with mod assist for toilet transfer and pericare and managing shorts. Pt then stood at sink to wash hands with SBA for safety. Increased time and effort for all ADLs this date. Hearing / Speech / Vision Hearing: Within Functional Limits Speech: Within Functional Limits Current Vision: No visual deficits Cognition Overall Cognitive Status: Exceptions to Within Functional Limits Attention Span: Attends with cues to redirect Orientation Level: Oriented X4 Following Commands: Follows one step commands with increased time, Follows one step commands with repetition Safety Judgment: Decreased awareness of need for safety Awareness of Errors: Assistance required to identify errors made Bed Mobility Supine to Sit: Mod assist (x2) Sit to Supine: Unable to assess (pt up in chair at end of session with call light in reach and all needs met. RN aware. Chair alarm on.) Other: pt completed sup to sit from flat bed with mod x2 assist for RLE and trunk elevation. Pt demod increased difficulty with bed mobility and required increased time and effort to achieve upright sitting position at EOB. Cues for breathing as pt has strong tendency to hold his breath throughout any exertion/ movement. Transfers Sit to Stand: Min assist (x2) Stand to Sit: Min assist (x2) Toilet Transfers: Mod assist (x2) Other: Pt completed STS from EOB with bed height slightly elevated and min x2 assist for safety. Use of momemtum to achieve standing. Cues for hand placement and RLE placement during transfers. Pt required increased assist of mod x2 from toilet due to low height. All completed with RW. INcreased time/ effort. Gait Gait Assistance: Min assist Assistive Device: Rolling walker Gait Distance: 15 ft x 2 functional distance Limiting Factors to Gait: Fatigue, Weakness, Pain Other: pt completedf functional mobility to and from bathroom with min assist for safety. pt moves very slowly and cautiously. Pt c/o increasing R knee pain throughout mobility. slightly unsteady without overt LOB. Balance Sitting Balance: Static: Good Sitting Balance: Dynamic: Fair (+) Standing Balance: Static: Fair Standing Balance: Dynamic: Fair Other: BUE support on RW during standing balance. Activity Tolerance Endurance: Tolerates >30 minutes activity with rest breaks Other: rest breaks throughout. pt c/o increasing R knee pain during all activity today. Limited by fatigue, weakness, and pain. Plan Occupational Therapy Care Plan Occupational Therapy Care Plan (Active) Template: OT - Occupational Therapy Problem: Activity Tolerance Dates: Start: 01/19/24 Disciplines: OT Goal: Tolerate > 30 minutes of activity WITHOUT rest breaks Dates: Start: 01/19/24 Expected End: 02/09/24 Description: Goal Description: Disciplines: OT Outcomes Date/Time User Outcome 01/22/24 1054 Ludy Ireland OTR/L Progressing 01/21/24 1650 Ludy Vogt, SERVIN/L Progressing 01/21/24 1053 Ludy Vogt, SERVIN/L Progressing 01/20/24 1610 Katlin Goins, SERVIN/L Progressing 01/20/24 0945 Katlin Goins, SERVIN/L Progressing 01/19/24 1531 Nano Maher, SERVIN/L Progressing Goal Note filed on 01/22/24 1054 by Ludy Ireland OTR/Lanie Evaluation of progress towards goal: Problem: Bed Mobility Dates: Start: 01/19/24 Disciplines: OT Goal: Patient will perform bed mobility with Modified [place] Dates: Start: 01/19/24 Expected End: 02/09/24 Description: Goal Description: Disciplines: OT Outcomes Date/Time User Outcome 01/22/24 1054 Ludy Ireland OTR/L Progressing 01/21/24 1053 Ludy Vogt SERVIN/L Progressing 01/20/24 1610 Katlin oGins SERVIN/L Progressing 01/20/24 0945 Katlin Goins, SERVIN/L Progressing 01/19/24 1531 Nano Gunnar, SREVIN/L Progressing Goal Note filed on 01/22/24 1054 by Ludy Ireland OTR/L Evaluation of progress towards goal: Problem: Functional Mobility Dates: Start: 01/19/24 Disciplines: OT Goal: Patient will perform functional mobility with Modified [place] Dates: Start: 01/19/24 Expected End: 02/09/24 Description: Goal Description: Disciplines: OT Outcomes Date/Time User Outcome 01/22/24 1054 Ludy Ireland OTR/L Progressing 01/21/24 1650 Ludy Hullinger, SERVIN/L Progressing 01/21/24 1053 Ludy Vogt, SERVIN/L Progressing 01/20/24 1610 Katlin Goins, SERVIN/L Progressing 01/20/24 0945 Katlin Goins, SERVIN/L Progressing 01/19/24 1531 Nano Maher, SERVIN/L Progressing Goal Note filed on 01/22/24 1054 by Ludy Ireland OTR/Lanie Evaluation of progress towards goal: Problem: Other (Customize) Dates: Start: 01/19/24 Disciplines: OT Goal: Improve Dates: Start: 01/19/24 Expected End: 02/09/24 Description: Goal Description: Complete ADLs [place] with AE/DME Disciplines: OT Outcomes Date/Time User Outcome 01/22/24 1054 Ludy Ireland OTR/L Progressing 01/21/24 1053 Ludy Vogt SERVIN/L Not Progressing 01/20/24 0945 Katlin Goins, SERVIN/L Progressing Goal Note filed on 01/22/24 1054 by Ludy Ireland OTR/Lanie Evaluation of progress towards goal: Problem: Sitting Balance Dates: Start: 01/19/24 Disciplines: OT Goal: Improve balance to good Dates: Start: 01/19/24 Expected End: 02/09/24 Description: Static Dynamic Disciplines: OT Outcomes Date/Time User Outcome 01/22/24 1054 Ludy Ireland OTR/L Progressing 01/21/24 1650 Ludy Vogt, SERVIN/L Progressing 01/21/24 1053 Ludy Vogt, SERVIN/L Progressing 01/20/24 1610 Katlin Goins, SERVIN/L Progressing 01/20/24 0945 Katlin Goins, SERVIN/L Progressing 01/19/24 1531 Nano Maher, SERVIN/L Progressing Goal Note filed on 01/22/24 1054 by Ludy Ireland OTR/Lanie Evaluation of progress towards goal: Problem: Standing Balance Dates: Start: 01/19/24 Disciplines: OT Goal: Improve balance to good Dates: Start: 01/19/24 Expected End: 02/09/24 Description: Static Dynamic Disciplines: OT Outcomes Date/Time User Outcome 01/22/24 1054 Ludy Seward, OTR/L Progressing 01/21/24 1650 Ludy Vogt, SERVIN/L Progressing 01/21/24 1053 Ludy Vogt, SERVIN/L Progressing 01/20/24 1610 Katlin Goins, SERVIN/L Progressing 01/20/24 0945 Katlin Goins, SERVIN/L Progressing 01/19/24 1531 Nano Maher, SERVIN/L Progressing Goal Note filed on 01/22/24 1054 by Ludy Ireland OTR/L Evaluation of progress towards goal: Problem: Strength Dates: Start: 01/19/24 Disciplines: OT Goal: Improve strength Dates: Start: 01/19/24 Expected End: 02/09/24 Description: Of extremity/ location: Tolerate bilat UE exercises to increase strength and endurancefor self care tasks. To facilitate: Disciplines: OT Outcomes Date/Time User Outcome 01/22/24 1054 Ludy Ireland OTR/L Progressing 01/21/24 1650 Ludy Vogt, SERVIN/L Progressing 01/21/24 1053 Ludy Vogt, SERVIN/L Progressing 01/19/24 1531 Nano Maher, SERVIN/L Progressing Goal Note filed on 01/22/24 1054 by Ludy Ireland OTR/L Evaluation of progress towards goal: Problem: Transfers Dates: Start: 01/19/24 Disciplines: OT Goal: Patient will perform transfers with Modified [place] Dates: Start: 01/19/24 Expected End: 02/09/24 Description: Goal Description: Disciplines: OT Outcomes Date/Time User Outcome 01/22/24 1054 Ludy Ireland OTR/L Progressing 01/21/24 1650 Ludy Vogt, SERVIN/L Progressing 01/21/24 1053 Ludy Vogt, SERVIN/L Not Progressing 01/20/24 1610 Katlin Goins, SERVIN/L Progressing 01/20/24 0945 Katlin Goins, SERVIN/L Progressing 01/19/24 1531 Nano Maher, SERVIN/L Progressing Goal Note filed on 01/22/24 1054 by Ludy Ireland OTR/L Evaluation of progress towards goal: Occupational Therapy Care Plan (Resolved) There are no resolved problems. Principal Problem: Closed fracture of right hip, initial encounter ([facility]) Active Problems: Closed displaced intertrochanteric fracture of right femur ([facility]) [facility] [employer] [id number] Progress note* PT/OT/THERMAL SURFACING MACHINE OPERATOR - Shahrzad Garcias, LIVE IN HOUSEKEEPER - 01/22/2024 8:30 AM EDT Physical Therapy Treatment Discharge Recommendations PT Recommendations: Inpatient Rehab Inpatient Rehab Criteria: All inpatient rehab criteria expected to be met 6 Clicks: Basic Mobility Turning from your back to your side while in a flat bed without using bed rails?: A little Moving from lying on your back to sitting on side of flat bed without using bed rails?: A lot Moving to and from bed to a chair (including w/c)?: A little Standing up from a chair using your arms (e.g. w/c or bedside chair)?: A lot To walk in hospital room?: A little Climbing 3-5 steps with a railing?: Total Scoring 6 Clicks: Basic Mobility Raw Score: 14 [facility] G Code Modifier: CK Therapy Plan PT Treatment/Interventions: Functional transfer training, LE strengthening/ROM, Endurance training,Patient/family training, Equipment eval/education, Balance, Bed mobility, Gait training, Functionalactivities PT Frequency: Other (comment) (daily) PT Duration: LOS Patient Response to Treatment: Progressing toward goals Assessment Patient Assessment Therapy Problem List: Decreased ADL status, Decreased balance, Decreased endurance, Decreased mobility, Decreased safe judgement during ADL, Decreased self-care trans, Decreased UE ROM, Decreased UE strength Patient Response to Treatment: Progressing toward goals Mood/Affect: Appropriate for circumstances Rehab Prognosis: Good, With continued PT status post acute discharge Visit RN Communication: Yes Medical Record Reviewed: Yes PT Type of Visit: Treatment Precautions Activity: ok to tx per RN Equipment: gait belt, RW Weight Bearing Status: WBAT R LE Telemetry/Paper Machine Back Tender: No Oxygen Used: room air Other: fall risk Pain Assessment Pain Assessment: 0-10 Pain Score: 7 Pain Type: Surgical pain Pain Location: Hip, Knee Pain Orientation: Right Pain Intervention(s): Repositioned, Ambulation/increased activity Response to Interventions: Pain unchanged, Quiet, No grimacing Hearing / Speech / Vision Hearing: Within Functional Limits Speech: Within Functional Limits Current Vision: No visual deficits Cognition Attention Span: Attends with cues to redirect Orientation Level: Oriented X4 Following Commands: Follows one step commands with increased time, Follows one step commands with repetition Bed Mobility Supine to Sit: Mod assist (x2) Other: Pt completed bed mobility with MOD a x2 for trunk and BLE support. Pt attempted from flat HOB and no use of railing Increased time and effort to complete. Pt used gait belt as leg repairer controller tester to assist RLE OOB. Pt tends to hold his breath with transitions and displays difficulty foloring direction for breathing technique from com writer. Pt reporting dizziness intially upon sitting EOB. Verbal and tactile cueing provided to improve technique and sequencing with fair return. Pt sitting in reclinerat end of tx session with call light in reach, all needs met, BLEs elevated, ice applied to R hip and knee, chair alarm on, RN aware. Transfers Sit to Stand: Min assist (x2) Stand to Sit: Min assist (x2) Toilet Transfers: Mod assist (x2) Other: Pt completed several transfers this AM with MIN A for safety and slgihtly elevated bed height. Education provided on breathing technique to reduce valsalva, kicking RLE out to reduce pain/pressure through R hip and knee, and use of momentum to aid in transfer. Pt required increased assit fortoielt transfer this AM d/t reports of R knee pain. Heavy L lateral trunk lean noted during sit>stand transition from toilet. Gait Base of Support: Within Functional Limits Pattern: Decreased jesusita, Antalgic gait, R Decreased heel strike, L Decreased heel strike, R Decreased foot clearance, L Decreased foot clearance, Forward trunk, R Decreased stance time, R Flexed knee (dec step length/height) Gait Assistance: Min assist Assistive Device: Rolling walker Gait Distance: 15', 3', 12' Limiting Factors to Gait: Fatigue, Weakness, Pain (pt c/o R knee pain) Other: Pt completed ambulation within room and bathroom this AM with MIN A for safety and use of RWfor BUE support. Increased time to complete d/t slow, cautious, and guarded pattern. Pt reports incR knee pain following toilet transfer limiting ability to ambulate further distance. Antalgic gait pattern noted. Education provided on R TKE during SLS to reduce buckling andheel>toe gait pattern. Balance Sitting Balance: Static: Good Sitting Balance: Dynamic: Fair (+) Standing Balance: Static: Fair Standing Balance: Dynamic: Fair Other: Pt required BUE support in standing for stability, however was able to assist with LB dressing with single UE support. Unsteadiness present with ambulation, however no overt LOB this AM. Pt sat unsupported at EOB for several ADL tasks without LOB, difficulty noted with stooping to reach RLE. Activity Tolerance Endurance: Tolerates >30 minutes activity with rest breaks Other: Intermittent rest breaks required. Pt is primarily limtied by pain this AM Plan Physical Therapy Care Plan Physical Therapy Care Plan (Active) Template: PT - Physical Therapy Problem: Activity Tolerance Dates: Start: 01/19/24 Disciplines: PT Goal: Tolerate > 30 minutes of activity WITH rest breaks Dates: Start: 01/19/24 Expected End: 02/02/24 Description: Goal Description: Disciplines: PT Outcomes Date/Time User Outcome 01/22/24 1051 Shahrzad Garcias PTA Progressing 01/21/24 1741 Shahrzad Garcias, SHERYL Progressing 01/21/24 1309 Shahrzad Garcias, SHERYL Progressing 01/20/24 1607 Shahrzad Garcias, SHERYL Progressing 01/20/24 1036 Shahrzad Garcias, SHERYL Progressing 01/19/24 1721 Shahrzad Garcias PTA Progressing Goal Note filed on 01/22/24 1051 by Shahrzad Garcias PTA Evaluation of progress towards goal: Problem: Bed Mobility Dates: Start: 01/19/24 Disciplines: PT Goal: Patient will perform bed mobility with Minimum Assist Dates: Start: 01/19/24 Expected End: 02/02/24 Description: Goal Description: Disciplines: PT Outcomes Date/Time User Outcome 01/22/24 1051 Shahrzad Garcias PTA Progressing 01/21/24 1741 Shahrzad Garcias, SHERYL Progressing 01/21/24 1309 Shahrzad Garcias, LIVE IN HOUSEKEEPER Progressing 01/20/24 1607 Shahrzad Garcias, SHERYL Progressing 01/20/24 1036 Shahrzad Garcias, LIVE IN HOUSEKEEPER Progressing 01/19/24 1721 Shahrzad Garcias PTA Progressing Goal Note filed on 01/22/24 1051 by Shahrzad Garcias PTA Evaluation of progress towards goal: Problem: Gait Dates: Start: 01/19/24 Disciplines: PT Goal: Patient will perform gait with Contact Guard Dates: Start: 01/19/24 Expected End: 02/02/24 Description: With_rw___,__150__feet Goal Description: Disciplines: PT Outcomes Date/Time User Outcome 01/22/24 1051 Shahrzad Garcias LIVE IN HOUSEKEEPER Progressing 01/21/24 1741 Shahrzad Garcias, LIVE IN HOUSEKEEPER Progressing 01/21/24 1309 Shahrzad Garcias, LIVE IN HOUSEKEEPER Progressing 01/20/24 1607 Shahrzad Garcias, LIVE IN HOUSEKEEPER Progressing 01/20/24 1036 Shahrzad Garcias, LIVE IN HOUSEKEEPER Progressing 01/19/24 1721 Shahrzad Garcias PTA Progressing Goal Note filed on 01/22/24 1051 by Shahrzad Garcias PTA Evaluation of progress towards goal: Problem: Standing Balance Dates: Start: 01/19/24 Disciplines: PT Goal: Improve balance to good Dates: Start: 01/19/24 Expected End: 02/02/24 Description: Static Dynamic- good (-) with support of rw Disciplines: PT Outcomes Date/Time User Outcome 01/22/24 1051 Shahrzad Garcias PTA Progressing 01/21/24 1741 Shahrzad Garcias, SHERYL Progressing 01/21/24 1309 Shahrzad Garcias, LIVE IN HOUSEKEEPER Not Progressing 01/20/24 1036 Shahrzad Garcias, LIVE IN HOUSEKEEPER Progressing 01/19/24 1721 Shahrzad Garcias PTA Progressing Goal Note filed on 01/22/24 1051 by Shahrzad Garcias PTA Evaluation of progress towards goal: Problem: Strength Dates: Start: 01/19/24 Disciplines: PT Goal: Improve strength Dates: Start: 01/19/24 Expected End: 02/02/24 Description: Of extremity/ location:Complete 20 reps bilat UE/LE ex's To facilitate: Disciplines: PT Outcomes Date/Time User Outcome 01/22/24 1051 Shahrzad Garcias LIVE IN HOUSEKEEPER Progressing 01/21/24 1741 Shahrzad Garcias, LIVE IN HOUSEKEEPER Progressing 01/21/24 1309 Shahrzad Garcias, LIVE IN HOUSEKEEPER Progressing 01/20/24 1607 Shahrzad Garcias, SHERYL Progressing 01/20/24 1036 Shahrzad Garcias, LIVE IN HOUSEKEEPER Progressing 01/19/24 1721 Shahrzad Garcias PTA Progressing Goal Note filed on 01/22/24 1051 by Shahrzad Garcias PTA Evaluation of progress towards goal: Problem: Transfers Dates: Start: 01/19/24 Disciplines: PT Goal: Patient will perform transfers with Contact Guard Dates: Start: 01/19/24 Expected End: 02/02/24 Description: Goal Description: Disciplines: PT Outcomes Date/Time User Outcome 01/22/24 1051 Shahrzad Garcias, LIVE IN HOUSEKEEPER Progressing 01/21/24 1741 Shahrzad Garcias, SHERYL Progressing 01/21/24 1309 Shahrzad Garcias, SHERYL Not Progressing 01/20/24 1607 Shahrzad Garcias, LIVE IN HOUSEKEEPER Progressing 01/20/24 1036 Shahrzad Garcias, SHERYL Progressing 01/19/24 1721 Shahrzad Garcias PTA Progressing Goal Note filed on 01/22/24 1051 by Shahrzad Garcias PTA Evaluation of progress towards goal: Physical Therapy Care Plan (Resolved) There are no resolved problems. Principal Problem: Closed fracture of right hip, initial encounter ([facility]) Active Problems: Closed displaced intertrochanteric fracture of right femur ([facility]) Associated attestation - Brady Jauregui PT - 01/22/2024 4:19 PM EDT I have reviewed and agree with this note and education documentation for this visit. [facility]06-09-2024 Plan of care note* Plan of Care - Santi Parks RN - 01/21/2024 9:31 PM EDT Problem: Pain Goal: Patient goal is pain score less than 4, able to rest, and participant in treatment plan as appropriate Description: INTERVENTIONS: 1. Encourage patient or legal charter representative to report early pain and ask for pain medicine when needed 2. Assess pain using appropriate pain scale and include the scale used when documenting 3. Administer analgesics based on type and severity of pain and evaluate response within appropriate time frame 4. Implement non-pharmacological measures as appropriate and evaluate response 5. Consider cultural and social influences on pain and pain management 6. Notify LIP if interventions ineffective or patient reports new pain 7. Monitor vital signs including pulse ox 8. Reassess pain per policy 9. Teach patient or legal charter representative interventions for comforting Outcome: Progressing Note: Evaluation of progress towards goal: pain assessed and analgesics administered as needed, nonpharmacological measures implemented as needed. Problem: Safety Goal: Patient will be injury free during hospitalization Description: INTERVENTIONS: 1. Assess patient's risk for falls and implement fall prevention plan of care per policy 2. Provide and maintain a safe environment 3. Proper use of double Identifiers 4. Medication administration using the 5 rights 5. Hand hygiene 6. Specimens are labeled at the bedside 7. Instruct patient/ patient charter representative about use of safety devices 8. Include patient/ patient charter representative in decisions related to safety Outcome: Progressing Note: Evaluation of progress towards goal: Safety measures initiated/maintained. Pt remains safe from harm/injury/falls Problem: Infection Goal: Absence of infection during hospitalization Description: Interventions: 1. Assess and monitor for signs and symptoms of infection 2. Monitor lab/diagnostic results 3. Monitor all insertion sites i.e., indwelling lines, tubes and drains 4. Monitor endotracheal (as able) and nasal secretions for changes in amount and color 5. Administer medications as ordered 6. Instruct and encourage patient and family to use good hand hygiene technique 7. Identify and instruct patient/patient charter representative in use of appropriate isolation precautionsfor identified infection/symptoms 8. Provide and discuss with patient/patient charter representative on educational MDRO sheet 9. Encourage and monitor nutritional status daily and consult maxillofacial pathology if indicated 10. Implement neutropenic guidelines as needed 11. Review exposure to history of communicable disease and recent travel history on admission 12. Encourage annual influenza vaccine 13. Encourage pneumonia vaccine Outcome: Progressing Note: Evaluation of progress towards goal: Pt afebrile at this time, continue to monitor for signs infection Problem: Knowledge Deficit Goal: Patient/patient charter representative demonstrates understanding of disease process, treatment plan,medications, and discharge instructions Description: INTERVENTIONS 1. Complete learning assessment and assess knowledge base 2. Provide teaching at level of understanding 3. Provide teaching via preferred learning method(s) Outcome: Progressing Note: Evaluation of progress towards goal: POC discussed with patient. Questions answered PRN. 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 - MALATHI Grey/Lanie - 01/21/2024 5:01 PM EDT Occupational Therapy Treatment (BID) Discharge Recommendations OT Recommendations : Inpatient Rehab Inpatient Rehab Criteria: All inpatient rehab criteria expected to be met 6 Clicks: Daily Activity Putting on and taking off regular lower body clothing?: A lot Bathing (including washing, rinsing, drying)?: A lot Toileting, which includes using toilet, bedpan or urinal?: A lot Putting on and taking off regular upper body clothing?: A little Taking care of personal grooming such as brushing teeth?: A little Eating meals?: None Scoring Daily Activity Raw Score: 16 CMS G Code Modifier: CK 01/21/24 1613 UE ROM UE ROM exercises performed? Yes Scapular retraction x Shoulder flexion/extension x Elbow flexion/extension x Other BUE AROM - seated with cues for tech Repetitions 15-20 OT Treatment/Interventions: Functional transfer training, UE strengthening/ROM, Endurance training,Patient/family training, Equipment eval/education, Balance, Compensatory technique education, Functional activities OT Frequency: Twice a Day OT Duration: Until discharge Assessment Patient Assessment Therapy Problem List: Decreased ADL status, Decreased balance, Decreased endurance, Decreased mobility, Decreased safe judgement during ADL, Decreased self-care trans, Decreased UE ROM, Decreased UE strength Patient Response to Treatment: Slow progress, decreased activity tolerance Mood/Affect: Appropriate for circumstances Rehab Prognosis: Good, With continued OT status post acute discharge Visit RN Communication: Yes Medical Record Reviewed: Yes OT Type of Visit: Treatment (BID) Precautions Activity: ok to tx per RN Equipment: gait belt, RW Weight Bearing Status: WBAT Rt LE Telemetry/Paper Machine Back Tender: No Oxygen Used: room air Other: fall risk Pain Assessment Pain Assessment: 0-10 Pain Score: 5 Pain Type: Surgical pain Pain Location: Hip, Back, Leg Pain Orientation: Right, Lower Pain Intervention(s): Repositioned, Cold applied, Ambulation/increased activity Response to Interventions: Pain improved ADL / IADL Hand Dominance: Right Where Assessed: At toilet, Supine, bed Toilet/Commode Assistance: Max assist Toilet/Commode Deficit: Supervison/safety, Increased time to complete, Grab bar use, Perineal hygiene Footwear Assistance: Max assist Footwear Deficit: R sock, L sock Other: Pt declined ADLs at this time. Home Management - IADL Other: Pt declined ADLs at this time. Hearing / Speech / Vision Hearing: Within Functional Limits Speech: Within Functional Limits Cognition Overall Cognitive Status: Exceptions to Within Functional Limits Arousal/Alertness: Appropriate responses to stimuli Attention Span: Attends with cues to redirect Orientation Level: Oriented X4 Following Commands: Follows one step commands with increased time, Follows one step commands with repetition Safety Judgment: Decreased awareness of need for safety Awareness of Errors: Assistance required to identify errors made Other: Pt pain improved this PM. pt pleasant and cooperative Bed Mobility Supine to Sit: Unable to assess Sit to Supine: Unable to assess Other: Pt up in recliner upon arrival and at end of session with call light in reach and nurse notified Transfers Sit to Stand: Min assist (x2) Stand to Sit: Min assist (x2) Toilet Transfers: Max assist (x2) Other: Pt completed sit<>stand with use of RW for BUE support and min A x2 to initiate and reach full stand. Pt with improved pain levels this PM. Cues given for proper hand placement and to kick out RLE for reduced pain. Increased time and effort to complete Gait Gait Assistance: Min assist Assistive Device: Rolling walker Gait Distance: 40ft x2 Other: Pt ambulated within bonner this date with use of RW for BUE support and min A for safety and stability. Cues given for RW safety/navigation and technique throughout. Increased time and effort tocompelte distances. Pt with slight unsteadiness noted with no LOB Balance Sitting Balance: Static: Good Sitting Balance: Dynamic: Fair (+) Standing Balance: Static: Fair Standing Balance: Dynamic: Fair (-) Other: Pt sat unsupported intermittently in recliner for ther ex and transfer prep with occasional back supported rest breaks needed. Use of RW for BUE support during amb and transfers with slight unsteadiness noted with no LOB Activity Tolerance Endurance: Tolerates >30 minutes activity with rest breaks Other: Pt limited d/t weakness, fatigue and pain. Increased time and effort to complete activity with rest breaks as needed Plan Occupational Therapy Care Plan Occupational Therapy Care Plan (Active) Template: OT - Occupational Therapy Problem: Activity Tolerance Dates: Start: 01/19/24 Disciplines: OT Goal: Tolerate > 30 minutes of activity WITHOUT rest breaks Dates: Start: 01/19/24 Expected End: 02/09/24 Description: Goal Description: Disciplines: OT Outcomes Date/Time User Outcome 01/21/24 1650 Ludy Vogt, SERVIN/L Progressing 01/21/24 1053 Ludy Vogt, SERVIN/L Progressing 01/20/24 1610 Katlin Goins, SERVIN/L Progressing 01/20/24 0945 Katlin Buster, SERVIN/L Progressing 01/19/24 1531 Nano Maher, SERVIN/L Progressing Problem: Bed Mobility Dates: Start: 01/19/24 Disciplines: OT Goal: Patient will perform bed mobility with Modified [place] Dates: Start: 01/19/24 Expected End: 02/09/24 Description: Goal Description: Disciplines: OT Outcomes Date/Time User Outcome 01/21/24 1053 Ludy Vogt, SERVIN/L Progressing 01/20/24 1610 Katlin Goins, SERVIN/L Progressing 01/20/24 0945 Katlin Buster, SERVIN/L Progressing 01/19/24 1531 Nano Maher, SERVIN/L Progressing Problem: Functional Mobility Dates: Start: 01/19/24 Disciplines: OT Goal: Patient will perform functional mobility with Modified [place] Dates: Start: 01/19/24 Expected End: 02/09/24 Description: Goal Description: Disciplines: OT Outcomes Date/Time User Outcome 01/21/24 1650 Ludy Vogt, SERVIN/L Progressing 01/21/24 1053 Ludy Vogt, SERVIN/L Progressing 01/20/24 1610 Katlin Goins, SERVIN/L Progressing 01/20/24 0945 Katlin Buster, SERVIN/L Progressing 01/19/24 1531 Nano Maher, SERVIN/L Progressing Problem: Other (Customize) Dates: Start: 01/19/24 Disciplines: OT Goal: Improve Dates: Start: 01/19/24 Expected End: 02/09/24 Description: Goal Description: Complete ADLs [place] with AE/DME Disciplines: OT Outcomes Date/Time User Outcome 01/21/24 1053 Ludy Vogt, SERVIN/L Not Progressing 01/20/24 0945 Katlin Goins, SERVIN/L Progressing Problem: Sitting Balance Dates: Start: 01/19/24 Disciplines: OT Goal: Improve balance to good Dates: Start: 01/19/24 Expected End: 02/09/24 Description: Static Dynamic Disciplines: OT Outcomes Date/Time User Outcome 01/21/24 1650 Ludy Vogt, SERVIN/L Progressing 01/21/24 1053 Ludy Vogt, SERVIN/L Progressing 01/20/24 1610 Katlni Goins, SERVIN/L Progressing 01/20/24 0945 Katlin Buster, SERVIN/L Progressing 01/19/24 1531 Nano Maher SERVIN/L Progressing Problem: Standing Balance Dates: Start: 01/19/24 Disciplines: OT Goal: Improve balance to good Dates: Start: 01/19/24 Expected End: 02/09/24 Description: Static Dynamic Disciplines: OT Outcomes Date/Time User Outcome 01/21/24 1650 Ludy Vogt, SERVIN/L Progressing 01/21/24 1053 Ludy Vogt, SERVIN/L Progressing 01/20/24 1610 Katlin Goins, SERVIN/L Progressing 01/20/24 0945 Katlin Goins, SERVIN/L Progressing 01/19/24 1531 Nano Maher SERVIN/L Progressing Problem: Strength Dates: Start: 01/19/24 Disciplines: OT Goal: Improve strength Dates: Start: 01/19/24 Expected End: 02/09/24 Description: Of extremity/ location: Tolerate bilat UE exercises to increase strength and endurancefor self care tasks. To facilitate: Disciplines: OT Outcomes Date/Time User Outcome 01/21/24 1650 Ludy Vogt, SERVIN/L Progressing 01/21/24 1053 Ludy Vogt, SERVIN/L Progressing 01/19/24 1531 Nano Maher SERVIN/L Progressing Problem: Transfers Dates: Start: 01/19/24 Disciplines: OT Goal: Patient will perform transfers with Modified [place] Dates: Start: 01/19/24 Expected End: 02/09/24 Description: Goal Description: Disciplines: OT Outcomes Date/Time User Outcome 01/21/24 1650 Ludy Vogt SERVIN/L Progressing 01/21/24 1053 Ludy Vogt, SERVIN/L Not Progressing 01/20/24 1610 Katlin Goins, SERVIN/L Progressing 01/20/24 0945 Katlin Goins, SERVIN/L Progressing 01/19/24 1531 Nano Gunnar, SERVIN/L Progressing Occupational Therapy Care Plan (Resolved) There are no resolved problems. Principal Problem: Closed fracture of right hip, initial encounter ([facility]) Active Problems: Closed displaced intertrochanteric fracture of right femur ([facility]) Associated attestation - Ludy Ireland OTR/L - 01/22/2024 7:38 AM EDT I have reviewed and agree with this note and education documentation for this visit. [facility] [place]06-09-2024 Plan of care note* Plan of Care - Chloe Vela RN - 01/21/2024 4:13 PM EDT Problem: Pain Goal: Patient goal is pain score less than 4, able to rest, and participant in treatment plan as appropriate Description: INTERVENTIONS: 1. Encourage patient or legal charter representative to report early pain and ask for pain medicine when needed 2. Assess pain using appropriate pain scale and include the scale used when documenting 3. Administer analgesics based on type and severity of pain and evaluate response within appropriate time frame 4. Implement non-pharmacological measures as appropriate and evaluate response 5. Consider cultural and social influences on pain and pain management 6. Notify LIP if interventions ineffective or patient reports new pain 7. Monitor vital signs including pulse ox 8. Reassess pain per policy 9. Teach patient or legal charter representative interventions for comforting Outcome: Progressing Note: Evaluation of progress towards goal: Pain assessed. Pain goal discussed. Patient educated on nonpharmacologcial and pharmocological interventions. Problem: Safety Goal: Patient will be injury free during hospitalization Description: INTERVENTIONS: 1. Assess patient's risk for falls and implement fall prevention plan of care per policy 2. Provide and maintain a safe environment 3. Proper use of double Identifiers 4. Medication administration using the 5 rights 5. Hand hygiene 6. Specimens are labeled at the bedside 7. Instruct patient/ patient charter representative about use of safety devices 8. Include patient/ patient charter representative in decisions related to safety Outcome: Progressing Note: Evaluation of progress towards goal: Pt remains free from injury this hospitalization. Problem: Infection Goal: Absence of infection during hospitalization Description: Interventions: 1. Assess and monitor for signs and symptoms of infection 2. Monitor lab/diagnostic results 3. Monitor all insertion sites i.e., indwelling lines, tubes and drains 4. Monitor endotracheal (as able) and nasal secretions for changes in amount and color 5. Administer medications as ordered 6. Instruct and encourage patient and family to use good hand hygiene technique 7. Identify and instruct patient/patient charter representative in use of appropriate isolation precautionsfor identified infection/symptoms 8. Provide and discuss with patient/patient charter representative on educational MDRO sheet 9. Encourage and monitor nutritional status daily and consult maxillofacial pathology if indicated 10. Implement neutropenic guidelines as needed 11. Review exposure to history of communicable disease and recent travel history on admission 12. Encourage annual influenza vaccine 13. Encourage pneumonia vaccine Outcome: Progressing Problem: Knowledge Deficit Goal: Patient/patient charter representative demonstrates understanding of disease process, treatment plan,medications, and discharge instructions Description: INTERVENTIONS 1. Complete learning assessment and assess knowledge base 2. Provide teaching at level of understanding 3. Provide teaching via preferred learning method(s) Outcome: Progressing Problem: Discharge Planning Goal: Discharge to post-acute care, other facility, or home with appropriate resources Description: Patient's goal is: INTERVENTIONS 1. Conduct assessment to determine patient/family and health care team treatment goals, and need for post-acute services based on payer coverage, community resources, and patient preferences, and barriers to discharge 2. Coordinate with Social work, Care Navigation, and Utilization Review to arrange appropriate level of services according to patient's needs based on patient preference and payer coverage in collaboration with the physician and health care team 3. Address psychosocial, clinical, and financial barriers to discharge as identified in assessment in conjunction with the patient/family and health care team 4. Consult appropriate ancillary services (i.e.. PT/OT/ST, etc) as needed 5. Communicate with and update the patient/family, physician, and health care team regarding progress on the discharge plan 6. Identify discharge learning needs (meds, wound care, etc). 7. Arrange for needed discharge transportation as appropriate Outcome: Progressing Problem: Glucose Imbalance Goal: Clinical indication of glucose balance is achieved Description: Patient's goal is: INTERVENTIONS 1. Monitor blood glucose levels as ordered 2. Administer medications as ordered 3. Notify physician of ineffective treatment plan Outcome: Progressing Goal: Patient's discharge needs are met Description: Patient's goal is: INTERVENTIONS 1. Assess patient for self-management skills 2. Encourage participation in diabetes management 3. Identify potential discharge barriers on admission and throughout hospital stay 4. Involve patient/S.O. in discharge planning process 5. Communicate referral to special educator as appropriate 6. Communicate referral to maxillofacial pathology as appropriate 7. Collaborate with case management/social worker health services for discharge needs Outcome: Progressing Problem: Moderate - High Risk Fall Score Description: Arredondo Fall Score of =/> 25 or indicated by [facility] Assessment Goal: Patient should be free from fall Description: Interventions: 1. [place] to environment 2. Hourly rounds addressing the 4 P's (Pain, Positioning, Possessions, Potty) 3. Clear area of hazards (spills, clutter, electrical cords, unnecessary equipment) 4. Place equipment (bed & TV controls, call light, phone, urinal) within reach 5. Encourage patient to wear glasses and hearing aides as appropriate 6. Maintain bed in lowest position 7. Lock wheels on bed/wheelchair 8. Provide adequate lighting, including night light 9. Assess need for additional bedding, food/fluids, pain med's prior to sleep/routinely 10. Provide gripper slippers or personal non-skid footwear 11. Teach patient and patient charter representative to maintain environment for safety and engage in all aspects of fall prevention program 12. Remind patient to call for help before getting out of bed 13. Initiate bed/chair/exit alarms supportive devices as appropriate, (chair wedge, no-skid floor mat, raised edge mattress, hip protectors) 14. Locate patient bed assignment for optimal visualization 15. Evaluate and identify Safe Patient Handling Equipment needs 16. Provide supervision when out of bed or chair 17. Utilize gait belt as needed to assist with ambulation 18. Place adaptive equipment (cane, walker) within reach 19. Request patient charter representative bring adaptive equipment/mobility aids from home or obtain and provide as needed 20. Consult pharmacy regarding effects of med's affecting mobility, cognition, and alternatives 21. Obtain physician order for PT if risk factors associated with mobility are present 22. Obtain physician order for OT as appropriate 23. Utilize diversional activities 24. Educate patient and patient charter representative how to maintain a safe environment during visitationtimes (notify nurse prior to leaving bedside) 25. Consider appropriateness of medical or non-medical librarian 26. Set up voiding schedule as appropriate (every 2 hours) Outcome: Progressing Note: Evaluation of progress towards goal: Fall precautions in place including bed locked and in lowest position, call light within reach and non skid socks on. Patient calls out appropriately for help. Hourly rounding in place. [employer] [id number] Progress note* PT/OT/THERMAL SURFACING MACHINE OPERATOR - Shahrzad Garcias, LIVE IN HOUSEKEEPER - 01/21/2024 3:32 PM EDT Physical Therapy Treatment (BID) Discharge Recommendations PT Recommendations: Inpatient Rehab Inpatient Rehab Criteria: All inpatient rehab criteria expected to be met 6 Clicks: Basic Mobility Turning from your back to your side while in a flat bed without using bed rails?: A little Moving from lying on your back to sitting on side of flat bed without using bed rails?: A lot Moving to and from bed to a chair (including w/c)?: A little Standing up from a chair using your arms (e.g. w/c or bedside chair)?: A lot To walk in hospital room?: A little Climbing 3-5 steps with a railing?: Total Scoring 6 Clicks: Basic Mobility Raw Score: 14 CMS G Code Modifier: CK Therapy Plan PT Treatment/Interventions: Functional transfer training, LE strengthening/ROM, Endurance training,Patient/family training, Equipment eval/education, Balance, Bed mobility, Gait training, Functionalactivities PT Frequency: Twice a Day PT Duration: LOS Patient Response to Treatment: Progressing toward goals Assessment Patient Assessment Therapy Problem List: Decreased ADL status, Decreased balance, Decreased endurance, Decreased mobility, Decreased safe judgement during ADL, Decreased self-care trans, Decreased UE ROM, Decreased UE strength Patient Response to Treatment: Progressing toward goals Mood/Affect: Appropriate for circumstances Rehab Prognosis: Good, With continued PT status post acute discharge Visit RN Communication: Yes Medical Record Reviewed: Yes PT Type of Visit: Treatment (BID) Precautions Activity: ok to tx per RN Equipment: gait belt, RW Weight Bearing Status: WBAT Rt LE Telemetry/Paper Machine Back Tender: No Oxygen Used: room air Other: fall risk Pain Assessment Pain Assessment: 0-10 Pain Score: 5 Pain Type: Surgical pain Pain Location: Hip, Back, Leg Pain Orientation: Right, Lower Pain Intervention(s): Repositioned, Ambulation/increased activity Response to Interventions: Pain unchanged, No grimacing Hearing / Speech / Vision Hearing: Within Functional Limits Speech: Within Functional Limits Current Vision: No visual deficits Cognition Overall Cognitive Status: Exceptions to Within Functional Limits Arousal/Alertness: Appropriate responses to stimuli Attention Span: Attends with cues to redirect Orientation Level: Oriented X4 Following Commands: Follows one step commands with increased time, Follows one step commands with repetition Safety Judgment: Decreased awareness of need for safety Awareness of Errors: Assistance required to identify errors made Other: Pt's pain improved in PM session. Redirection provided intermittently Bed Mobility Supine to Sit: Mod assist Other: Pt in recliner upon arrival to session. Ended tx with pt in recliner. All needs met, calll light in reach, RN aware. Discussed with pt about importance of use of call light to ask for assistance if needing to get up during the day. Transfers Sit to Stand: Min assist (x2) Stand to Sit: Min assist (x2) Toilet Transfers: Max assist (x2) Other: Transfers completed with use of RW for BUE support and education on safe hand placement and sequencing to reduce fall risk. Education also provided for eccentric control with sitting for safety. Improved tolerance this PM. Gait Base of Support: Wide Pattern: Decreased jesusita, Antalgic gait, R Decreased heel strike, L Decreased heel strike, R Decreased foot clearance, L Decreased foot clearance, Forward trunk, R Decreased stance time, R Flexed knee (dec step height/length) Gait Assistance: Min assist Assistive Device: Rolling walker Gait Distance: 40'x2 Limiting Factors to Gait: Fatigue, Weakness, Pain 2 Turns: Yes Other: Pt completed ambulation within room and hallway with MIN A for safety. Education provided onsequencing of gait pattern and intermittent assist provided for advancing RW to improve technique. Slow, guarded pattern noted. Pt educated on energy conservation and taking rest breaks as needed. Unsteadiness present with mobility, however no overt LOB. Improved tolerance this PM 01/21/24 1532 LE Seated LE seated exercises performed? Yes Ankle pumps x Long arc quads x Seated marching x Hip abduction/adduction x Other Glute sets, VVT cues for technique and sequencing. AAROM as needed for RLE Repetitions 15x Balance Sitting Balance: Static: Good Sitting Balance: Dynamic: Fair (+) Standing Balance: Static: Fair Standing Balance: Dynamic: Fair Other: Pt sat unsupported in recliner while participating in seated exercises. BUE support requiredfor ambulation within room and hallway for stability with MIN A for safety. mild posterior trunk lean upoon standing with cueing to shift weight forward onto toes to correct. No overt LOB this PM. Activity Tolerance Endurance: Tolerates >30 minutes activity with rest breaks Other: Intermittent rest breaks required. Pt is primarily limtied by pain when completing therapy tasks. Inc fatigue with ambulation, and standing rest break required between ambulation bouts. Plan Physical Therapy Care Plan Physical Therapy Care Plan (Active) Template: PT - Physical Therapy Problem: Activity Tolerance Dates: Start: 01/19/24 Disciplines: PT Goal: Tolerate > 30 minutes of activity WITH rest breaks Dates: Start: 01/19/24 Expected End: 02/02/24 Description: Goal Description: Disciplines: PT Outcomes Date/Time User Outcome 01/21/24 1741 Shahrzad Garcias PTA Progressing 01/21/24 1309 Shahrzad Garcias PTA Progressing 01/20/24 1607 Shahrzad Garcias PTA Progressing 01/20/24 1036 Shahrzad Garcias PTA Progressing 01/19/24 1721 Shahrzad Garcias PTA Progressing Goal Note filed on 01/21/24 1741 by Shahrzad Garcias PTA Evaluation of progress towards goal: Problem: Bed Mobility Dates: Start: 01/19/24 Disciplines: PT Goal: Patient will perform bed mobility with Minimum Assist Dates: Start: 01/19/24 Expected End: 02/02/24 Description: Goal Description: Disciplines: PT Outcomes Date/Time User Outcome 01/21/24 1741 Shahrzad Garcias PTA Progressing 01/21/24 1309 Shahrzad Garcias PTA Progressing 01/20/24 1607 Shahrzad Garcias PTA Progressing 01/20/24 1036 Shahrzad Garcias PTA Progressing 01/19/24 1721 Shahrzad Garcias PTA Progressing Goal Note filed on 01/21/241740 by Shahrzad Garcias PTA Evaluation of progress towards goal: Problem: Gait Dates: Start: 01/19/24 Disciplines: PT Goal: Patient will perform gait with Contact Guard Dates: Start: 01/19/24 Expected End: 02/02/24 Description: With_rw___,__150__feet Goal Description: Disciplines: PT Outcomes Date/Time User Outcome 01/21/24 174 Shahrzad Garcias LIVE IN HOUSEKEEPER Progressing 01/21/24 1309 Shahrzad Garcias, SHERYL Progressing 01/20/24 1607 Shahrzad Garcias, LIVE IN HOUSEKEEPER Progressing 01/20/24 1036 Shahrzad Garcias, LIVE IN HOUSEKEEPER Progressing 01/19/24 1721 Shahrzad Garcias PTA Progressing Goal Note filed on 01/21/24 174 by Shahrzad Garcias PTA Evaluation of progress towards goal: Problem: Standing Balance Dates: Start: 01/19/24 Disciplines: PT Goal: Improve balance to good Dates: Start: 01/19/24 Expected End: 02/02/24 Description: Static Dynamic- good (-) with support of rw Disciplines: PT Outcomes Date/Time User Outcome 01/21/24 174 Shahrzad Garcias PTA Progressing 01/21/24 1309 Shahrzad Garcias PTA Not Progressing 01/20/24 1036 Shahrzad Garcias, SHERYL Progressing 01/19/24 1721 Shahrzad Garcias PTA Progressing Goal Note filed on 01/21/24 174 by Shahrzad Garcias PTA Evaluation of progress towards goal: Problem: Strength Dates: Start: 01/19/24 Disciplines: PT Goal: Improve strength Dates: Start: 01/19/24 Expected End: 02/02/24 Description: Of extremity/ location:Complete 20 reps bilat UE/LE ex's To facilitate: Disciplines: PT Outcomes Date/Time User Outcome 01/21/24 174 Shahrzad Gracias PTA Progressing 01/21/24 1309 Shahrzad Garcias, LIVE IN HOUSEKEEPER Progressing 01/20/24 1607 Shahrzad Garcias, LIVE IN HOUSEKEEPER Progressing 01/20/24 1036 Shahrzad Garcias, LIVE IN HOUSEKEEPER Progressing 01/19/24 1721 Shahrzad Garcias PTA Progressing Goal Note filed on 01/21/241740 by Shahrzad Garcias PTA Evaluation of progress towards goal: Problem: Transfers Dates: Start: 01/19/24 Disciplines: PT Goal: Patient will perform transfers with Contact Guard Dates: Start: 01/19/24 Expected End: 02/02/24 Description: Goal Description: Disciplines: PT Outcomes Date/Time User Outcome 01/21/24 1741 Shahrzad Garcias PTA Progressing 01/21/24 1309 Shahrzad Garcias PTA Not Progressing 01/20/24 1607 Shahrzad Garcias PTA Progressing 01/20/24 1036 Shahrzad Garcias PTA Progressing 01/19/24 1721 Shahrzad Garcias PTA Progressing Goal Note filed on 01/21/241740 by Shahrzad Garcias PTA Evaluation of progress towards goal: Physical Therapy Care Plan (Resolved) There are no resolved problems. Principal Problem: Closed fracture of right hip, initial encounter ([facility]) Active Problems: Closed displaced intertrochanteric fracture of right femur ([facility]) Associated attestation - Brady Jauregui PT - 01/22/2024 4:19 PM EDT I have reviewed and agree with this note and education documentation for this visit. [facility] [place]06-09-2024 Progress note* PT/OT/THERMAL SURFACING MACHINE OPERATOR - NALLELY Grey - 01/21/2024 11:13 AM EDT Occupational Therapy Treatment Discharge Recommendations OT Recommendations : Inpatient Rehab Inpatient Rehab Criteria: All inpatient rehab criteria expected to be met 6 Clicks: Daily Activity Putting on and taking off regular lower body clothing?: A lot Bathing (including washing, rinsing, drying)?: A lot Toileting, which includes using toilet, bedpan or urinal?: A lot Putting on and taking off regular upper body clothing?: A little Taking care of personal grooming such as brushing teeth?: A little Eating meals?: None Scoring Daily Activity Raw Score: 16 [facility] G Code Modifier: CK 01/21/24 1043 UE ROM UE ROM exercises performed? No (focused on functional mobility) OT Treatment/Interventions: ADL retraining, Functional transfer training, UE strengthening/ROM, Endurance training, Patient/family training, Equipment eval/education, Balance, Bed mobility, Compensatory technique education, Functional activities OT Frequency: Twice a Day OT Duration: Until discharge Assessment Patient Assessment Therapy Problem List: Decreased ADL status, Decreased balance, Decreased endurance, Decreased mobility, Decreased safe judgement during ADL, Decreased self-care trans, Decreased UE ROM, Decreased UE strength Patient Response to Treatment: Slow progress, decreased activity tolerance Mood/Affect: Appropriate for circumstances Rehab Prognosis: Good, With continued OT status post acute discharge Visit RN Communication: Yes Medical Record Reviewed: Yes OT Type of Visit: Treatment Precautions Activity: ok to tx per RN Equipment: gait belt, RW, IV pole Weight Bearing Status: WBAT Rt LE Telemetry/Paper Machine Back Tender: No Oxygen Used: room air Other: fall risk Pain Assessment Pain Assessment: 0-10 Pain Score: 10 Pain Type: Surgical pain Pain Location: Hip, Back, Leg Pain Orientation: Right, Lower Pain Intervention(s): Repositioned, Cold applied, Ambulation/increased activity (RN provided pain meds during session) Response to Interventions: Pain unchanged, Quiet ADL / IADL Hand Dominance: Right Where Assessed: At toilet, Supine, bed Toilet/Commode Assistance: Max assist Toilet/Commode Deficit: Supervison/safety, Increased time to complete, Grab bar use, Perineal hygiene Footwear Assistance: Max assist Footwear Deficit: R sock, L sock Other: Pt with increased pain upon arrival laying supine in bed. Max A to oleksandr B socks. Pt ambulated to toilet to complete BM needing increased time and effort. Pt needing max a to complete myah carewhile standing with BUE support. Use of grab bar for stability throughout. Home Management - IADL Other: Pt with increased pain upon arrival laying supine in bed. Max A to oleksandr B socks. Pt ambulated to toilet to complete BM needing increased time and effort. Pt needing max a to complete myah carewhile standing with BUE support. Use of grab bar for stability throughout. Hearing / Speech / Vision Hearing: Within Functional Limits Speech: Within Functional Limits Cognition Overall Cognitive Status: Exceptions to Within Functional Limits Arousal/Alertness: Appropriate responses to stimuli Attention Span: Attends with cues to redirect Following Commands: Follows one step commands with increased time, Follows one step commands with repetition Safety Judgment: Decreased awareness of need for safety Awareness of Errors: Assistance required to identify errors made Other: Pt very anxious throughout session and with increased pain needing extended time to process commands and cues Bed Mobility Supine to Sit: Mod assist Sit to Supine: Unable to assess Other: Pt completed supine to sit EOB with slightly elevated HOB and use of bed rail to assist in trunk elevation. Mod A providd for trunk and BLe support off of bed with pt utilizing looped gait belt as leg repairer controller tester for RLE to advance toward EOB. Pt with increased pain with movement needing increased time and effort to complete task. rest breaks as needed throughout. Cues given for sequencing, proper use of leg liffter and to scoot hips toward EOB. Pt denies dizziness. Pt up in recliner at end of session with call light in reach and nurse notified Transfers Sit to Stand: Max assist (x2) Stand to Sit: Max assist (x2) Toilet Transfers: Max assist (x2) Other: Pt completed sit<>stand x2 this date with use of RW for BUE support and max A x2 to initiate and reach full stand. Verbal cues provided for proper hand placement, technique and to kick out RLE for reduced pain with poor carryover d/t increased pain and pt very anxious throughout. cueing also provided for proper brething techniques throughout. Increased time and effort to complete all transfers with pt with unsteadiness but no LOB noted. Gait Gait Assistance: Min assist (x2) Assistive Device: Rolling walker Gait Distance: 10ft + 15ft Other: Pt ambulated within room this date with use of RW for BUE support and min A x2 for safety and stability. Pt with unsteadiness noted with no major LOB. Verbal cues provided for proper techniqueto push through BUE for increased support when stepping with RLE and sequencing with jesusita and RWnavigation with fair carryover throughout. pt reporting 10/10 pain throughout needign increased time to complete distances. Balance Sitting Balance: Static: Good Sitting Balance: Dynamic: Fair (+) Standing Balance: Static: Fair Standing Balance: Dynamic: Fair (-) Other: Pt sat unsupported at EOB with slight forward flexed posture and BUE support needed d/t pt trying to offload from RLE d/t pain. Use of RW for BUE support during amb and transfers with unsteadiness noted with no major LOB and min A x2 needed for gait for safety and stability. Activity Tolerance Endurance: Tolerates >30 minutes activity with rest breaks Other: Pt limited d/t weakness, fatigue and pain. Increased time and effort to complete activity with rest breaks as needed Plan Occupational Therapy Care Plan Occupational Therapy Care Plan (Active) Template: OT - Occupational Therapy Problem: Activity Tolerance Dates: Start: 01/19/24 Disciplines: OT Goal: Tolerate > 30 minutes of activity WITHOUT rest breaks Dates: Start: 01/19/24 Expected End: 02/09/24 Description: Goal Description: Disciplines: OT Outcomes Date/Time User Outcome 01/21/24 1053 Ludy Vogt, SERVIN/L Progressing 01/20/24 1610 Katlin Goins, SERVIN/L Progressing 01/20/24 0945 Katlin Goins, SERVIN/L Progressing 01/19/24 1531 Nano Maher SERVIN/L Progressing Problem: Bed Mobility Dates: Start: 01/19/24 Disciplines: OT Goal: Patient will perform bed mobility with Modified [place] Dates: Start: 01/19/24 Expected End: 02/09/24 Description: Goal Description: Disciplines: OT Outcomes Date/Time User Outcome 01/21/24 1053 Ludy Vogt, SERVIN/L Progressing 01/20/24 1610 Katlin Goins SERVIN/L Progressing 01/20/24 0945 Katlin Goins, SERVIN/L Progressing 01/19/24 1531 Nano Maher SERVIN/L Progressing Problem: Functional Mobility Dates: Start: 01/19/24 Disciplines: OT Goal: Patient will perform functional mobility with Modified [place] Dates: Start: 01/19/24 Expected End: 02/09/24 Description: Goal Description: Disciplines: OT Outcomes Date/Time User Outcome 01/21/24 1053 Ludy Vogt SERVIN/L Progressing 01/20/24 1610 Katlin Goins, SERVIN/L Progressing 01/20/24 0945 Katlin Goins, SERVIN/L Progressing 01/19/24 1531 Nano Maher, SERVIN/L Progressing Problem: Other (Customize) Dates: Start: 01/19/24 Disciplines: OT Goal: Improve Dates: Start: 01/19/24 Expected End: 02/09/24 Description: Goal Description: Complete ADLs [place] with AE/DME Disciplines: OT Outcomes Date/Time User Outcome 01/21/24 1053 Ludy Vogt SERVIN/L Not Progressing 01/20/24 0945 Katlin Goins SERVIN/L Progressing Problem: Sitting Balance Dates: Start: 01/19/24 Disciplines: OT Goal: Improve balance to good Dates: Start: 01/19/24 Expected End: 02/09/24 Description: Static Dynamic Disciplines: OT Outcomes Date/Time User Outcome 01/21/24 1053 Ludy Vogt SERVIN/L Progressing 01/20/24 1610 Katlin Goins SERVIN/L Progressing 01/20/24 0945 Katlin Goins SERVIN/L Progressing 01/19/24 1531 CHARU HernandezA/L Progressing Problem: Standing Balance Dates: Start: 01/19/24 Disciplines: OT Goal: Improve balance to good Dates: Start: 01/19/24 Expected End: 02/09/24 Description: Static Dynamic Disciplines: OT Outcomes Date/Time User Outcome 01/21/24 1053 Ludy Vogt SERVIN/L Progressing 01/20/24 1610 Katlin Goins SERVIN/L Progressing 01/20/24 0945 Katlin Goins SERVIN/L Progressing 01/19/24 1531 CHARU HernandezA/Lanie Progressing Problem: Strength Dates: Start: 01/19/24 Disciplines: OT Goal: Improve strength Dates: Start: 01/19/24 Expected End: 02/09/24 Description: Of extremity/ location: Tolerate bilat UE exercises to increase strength and endurancefor self care tasks. To facilitate: Disciplines: OT Outcomes Date/Time User Outcome 01/21/24 1053 Ludy Vogt SERVIN/L Progressing 01/19/24 1531 CHARU HernandezA/Lanie Progressing Problem: Transfers Dates: Start: 01/19/24 Disciplines: OT Goal: Patient will perform transfers with Modified [place] Dates: Start: 01/19/24 Expected End: 02/09/24 Description: Goal Description: Disciplines: OT Outcomes Date/Time User Outcome 01/21/24 1053 Ludy Vogt SERVIN/L Not Progressing 01/20/24 1610 CHARU MenesesA/L Progressing 01/20/24 0945 Katlin Goins SERVIN/L Progressing 01/19/24 1531 CHARU HernandezA/L Progressing Occupational Therapy Care Plan (Resolved) There are no resolved problems. Principal Problem: Closed fracture of right hip, initial encounter ([facility]) Active Problems: Closed displaced intertrochanteric fracture of right femur ([facility]) Associated attestation - Virgil Nunes OTR/L - 01/21/2024 12:48 PM EDT I have reviewed and agree with this note and education documentation for this visit. [employer] [id number] Progress note* PT/OT/THERMAL SURFACING MACHINE OPERATOR - Shahrzad Garcias PTA - 01/21/2024 9:49 AM EDT Physical Therapy Treatment Discharge Recommendations PT Recommendations: Inpatient Rehab Inpatient Rehab Criteria: All inpatient rehab criteria expected to be met (Pt would benefit from IPR stay to increased strength, safety, balance, and endurance, and overall functional mobility prior to safe D/C home. Pt currently requires 2 person assistance for bed mobility and transfers.) 6 Clicks: Basic Mobility Turning from your back to your side while in a flat bed without using bed rails?: A lot Moving from lying on your back to sitting on side of flat bed without using bed rails?: A lot Moving to and from bed to a chair (including w/c)?: A lot Standing up from a chair using your arms (e.g. w/c or bedside chair)?: A lot To walk in hospital room?: A lot Climbing 3-5 steps with a railing?: Total Scoring 6 Clicks: Basic Mobility Raw Score: 11 [facility] G Code Modifier: CL Therapy Plan PT Treatment/Interventions: Functional transfer training, LE strengthening/ROM, Endurance training,Patient/family training, Equipment eval/education, Balance, Bed mobility, Gait training, Functionalactivities PT Frequency: Twice a Day PT Duration: LOS Patient Response to Treatment: Slow progress, decreased activity tolerance Assessment Patient Assessment Therapy Problem List: Decreased ADL status, Decreased balance, Decreased endurance, Decreased mobility, Decreased safe judgement during ADL, Decreased self-care trans, Decreased UE ROM, Decreased UE strength Patient Response to Treatment: Slow progress, decreased activity tolerance Mood/Affect: Appropriate for circumstances Rehab Prognosis: Good, With continued PT status post acute discharge Visit RN Communication: Yes Medical Record Reviewed: Yes PT Type of Visit: Treatment Precautions Activity: ok to tx per RN Equipment: gait belt, RW, IV pole Weight Bearing Status: WBAT Rt LE Telemetry/Paper Machine Back Tender: No Oxygen Used: room air Other: fall risk Pain Assessment Pain Assessment: 0-10 Pain Score: 10 Pain Type: Surgical pain Pain Location: Hip, Back, Leg Pain Orientation: Right, Lower Pain Intervention(s): Repositioned, Cold applied, Ambulation/increased activity (RN provided pain meds during session) Response to Interventions: Pain unchanged, Quiet Hearing / Speech / Vision Hearing: Within Functional Limits Speech: Within Functional Limits Cognition Overall Cognitive Status: Exceptions to Within Functional Limits Arousal/Alertness: Appropriate responses to stimuli Attention Span: Attends with cues to redirect Following Commands: Follows one step commands with increased time, Follows one step commands with repetition Safety Judgment: Decreased awareness of need for safety Awareness of Errors: Assistance required to identify errors made Other: Pt is greatly limited by pain this session. Pt very anxious with participation in all mobility tasks and required increased timefor all activities. Education provided on safety, fall risk and prevention, and energy conservation Bed Mobility Supine to Sit: Mod assist Other: MOD A provided for trunk and BLE support. HOB elevated slightly and use of bed railing required to complete. Use of limb repairer controller tester for RLE support OOB. Increased time and effort to complete. Pt sitting in the recliner at the end of tx session with BLEs elevated, ice applied to R hip, all needs met, RN aware. Transfers Sit to Stand: Max assist (x2) Stand to Sit: Max assist (x2) Toilet Transfers: Max assist (x2) Other: Pt completed multiple transfers this date with MAX Ax2 for trunk support. Education providedon sequencing of transfer and use of RW for BUE support. Increased time/effort and bed height elevated to complete. Pt reporting elevated pain in RLE during transitions- cued pt on kicking out RLE and inc WB through LLE during transitions to reduce pain/pressure through RLE. Pt reported mild dizziness with positional change that resolved with inc time. Gait Base of Support: Wide Pattern: Decreased jesusita, Antalgic gait, R Decreased heel strike, L Decreased heel strike, R Decreased foot clearance, L Decreased foot clearance, Forward trunk, R Decreased stance time, R Flexed knee (dec step height/length) Gait Assistance: Min assist (x2) Assistive Device: Rolling walker Gait Distance: 10', 15' Limiting Factors to Gait: Fatigue, Weakness, Pain 2 Turns: Yes Other: Pt ambulated within room with MIN A x2 for safety and use of RW for BUE support. Education provided on gait sequencing and TKE during R SLS, inc WB through UEs to offload weight on RLE. Fair carryover noted. Limited tolerance to amb d/t inc pain. RN aware 01/21/24 0949 Neuro Re-ed LE exercises performed? Yes Seated supported x Weightbearing x Seated unsupported x Standing alignment x Balance Sitting Balance: Static: Good Sitting Balance: Dynamic: Fair (+) Standing Balance: Static: Fair Standing Balance: Dynamic: Fair (-) Other: Pt completed standing mobility tasks with BUE support on RW handles. Pt attempted standing myah care, however was unable to stand with single UE support to complete. Assistance required to complete myah care. No overt LOB noted when sitting unsupported Activity Tolerance Endurance: Tolerates >30 minutes activity with rest breaks Other: Pt very limited by pain this PM. Increased time and effort to complete therapy tasks. Much encouragement, education, and reassurance provided surendra madrigal. Frequent rest breaks required. Pt tends to hold his breath when completing tasks- education on PLB technique. Plan Physical Therapy Care Plan Physical Therapy Care Plan (Active) Template: PT - Physical Therapy Problem: Activity Tolerance Dates: Start: 01/19/24 Disciplines: PT Goal: Tolerate > 30 minutes of activity WITH rest breaks Dates: Start: 01/19/24 Expected End: 02/02/24 Description: Goal Description: Disciplines: PT Outcomes Date/Time User Outcome 01/21/24 1309 Shahrzad Garcias PTA Progressing 01/20/24 1607 Shahrzad Garcias PTA Progressing 01/20/24 1036 Shahrzad Garcias PTA Progressing 01/19/24 1721 Shahrzad Garcias PTA Progressing Goal Note filed on 01/21/24 1309 by Shahrzad Garcias PTA Evaluation of progress towards goal: Problem: Bed Mobility Dates: Start: 01/19/24 Disciplines: PT Goal: Patient will perform bed mobility with Minimum Assist Dates: Start: 01/19/24 Expected End: 02/02/24 Description: Goal Description: Disciplines: PT Outcomes Date/Time User Outcome 01/21/24 1309 Shahrzad Garcias PTA Progressing 01/20/24 1607 Shahrzad Garcias PTA Progressing 01/20/24 1036 Shahrzad Garcias, SHERYL Progressing 01/19/24 1721 Shahrzad Garcias PTA Progressing Goal Note filed on 01/21/24 1309 by Shahrzad Garcias PTA Evaluation of progress towards goal: Problem: Gait Dates: Start: 01/19/24 Disciplines: PT Goal: Patient will perform gait with Contact Guard Dates: Start: 01/19/24 Expected End: 02/02/24 Description: With_rw___,__150__feet Goal Description: Disciplines: PT Outcomes Date/Time User Outcome 01/21/24 1309 Shahrzad Garcias PTA Progressing 01/20/24 1607 Shahrzad Garcias PTA Progressing 01/20/24 1036 Shahrzad Garcias PTA Progressing 01/19/24 1721 Shahrzad Garcias PTA Progressing Goal Note filed on 01/21/24 1309 by Shahrzad Garcias PTA Evaluation of progress towards goal: Problem: Standing Balance Dates: Start: 01/19/24 Disciplines: PT Goal: Improve balance to good Dates: Start: 01/19/24 Expected End: 02/02/24 Description: Static Dynamic- good (-) with support of rw Disciplines: PT Outcomes Date/Time User Outcome 01/21/24 1309 Shahrzad Garcias PTA Not Progressing 01/20/24 1036 Shahrzad Garcias PTA Progressing 01/19/24 1721 Shahrzad Garcias PTA Progressing Goal Note filed on 01/21/24 1309 by Shahrzad Garcias PTA Evaluation of progress towards goal: Problem: Strength Dates: Start: 01/19/24 Disciplines: PT Goal: Improve strength Dates: Start: 01/19/24 Expected End: 02/02/24 Description: Of extremity/ location:Complete 20 reps bilat UE/LE ex's To facilitate: Disciplines: PT Outcomes Date/Time User Outcome 01/21/24 1309 Shahrzad Garcias, LIVE IN HOUSEKEEPER Progressing 01/20/24 1607 Shahrzad Garcias, LIVE IN HOUSEKEEPER Progressing 01/20/24 1036 Shahrzad Garcias, LIVE IN HOUSEKEEPER Progressing 01/19/24 1721 Shahrzad Garcias PTA Progressing Goal Note filed on 01/21/24 1309 by Shahrzad Garcias PTA Evaluation of progress towards goal: Problem: Transfers Dates: Start: 01/19/24 Disciplines: PT Goal: Patient will perform transfers with Contact Guard Dates: Start: 01/19/24 Expected End: 02/02/24 Description: Goal Description: Disciplines: PT Outcomes Date/Time User Outcome 01/21/24 1309 Shahrzad Garcias, LIVE IN HOUSEKEEPER Not Progressing 01/20/24 1607 Shahrzad Garcias, LIVE IN HOUSEKEEPER Progressing 01/20/24 1036 Shahrzad Garcias, LIVE IN HOUSEKEEPER Progressing 01/19/24 1721 Shahrzad Garcias PTA Progressing Goal Note filed on 01/21/24 1309 by Shahrzad Garcias PTA Evaluation of progress towards goal: Physical Therapy Care Plan (Resolved) There are no resolved problems. Principal Problem: Closed fracture of right hip, initial encounter ([facility]) Active Problems: Closed displaced intertrochanteric fracture of right femur ([facility]) Associated attestation - Carlos Brar PT - 01/21/2024 3:57 PM EDT I have reviewed and agree with this note and education documentation for this visit. [facility] [place]06-09-2024 Plan of care note* Plan of Care - Virgil Gonzalez RN - 01/21/2024 2:05 AM EDT Problem: Pain Goal: Patient goal is pain score less than 4, able to rest, and participant in treatment plan as appropriate Description: INTERVENTIONS: 1. Encourage patient or legal charter representative to report early pain and ask for pain medicine when needed 2. Assess pain using appropriate pain scale and include the scale used when documenting 3. Administer analgesics based on type and severity of pain and evaluate response within appropriate time frame 4. Implement non-pharmacological measures as appropriate and evaluate response 5. Consider cultural and social influences on pain and pain management 6. Notify LIP if interventions ineffective or patient reports new pain 7. Monitor vital signs including pulse ox 8. Reassess pain per policy 9. Teach patient or legal charter representative interventions for comforting Outcome: Not Progressing Note: Evaluation of progress towards goal: Patient has consistently reported severe pain, 9-10, andhas requested meds at every interval allowed based on his orders. His vitals have been stable and he is not showing any signs of physical distress. Pt was educated on the toll that continuously taking narcotics will contribute to his constipation as well as the physical impact it will have on his body. [employer] [id number] Progress note* PT/OT/THERMAL SURFACING MACHINE OPERATOR - NALLELY Meneses - 01/20/2024 4:21 PM EDT Occupational Therapy Treatment (BID) Discharge Recommendations OT Recommendations : Inpatient Rehab Inpatient Rehab Criteria: All inpatient rehab criteria expected to be met 6 Clicks: Daily Activity Putting on and taking off regular lower body clothing?: A lot Bathing (including washing, rinsing, drying)?: A lot Toileting, which includes using toilet, bedpan or urinal?: Total (palacios) Putting on and taking off regular upper body clothing?: A little Taking care of personal grooming such as brushing teeth?: A little Eating meals?: None Scoring Daily Activity Raw Score: 15 CMS G Code Modifier: CK OT Treatment/Interventions: ADL retraining, Functional transfer training, UE strengthening/ROM, LE strengthening/ROM, Endurance training, Patient/family training, Equipment eval/education, Balance, Bed mobility, Compensatory technique education, Functional activities OT Frequency: Twice a Day OT Duration: Until discharge Assessment Patient Assessment Therapy Problem List: Decreased ADL status, Decreased balance, Decreased endurance, Decreased high-level ADLs, Decreased mobility, Decreased safe judgement during ADL, Decreased self-care trans, Decreased UE strength, Decreased LE strength Patient Response to Treatment: Slow progress, decreased activity tolerance Mood/Affect: Appropriate for circumstances Rehab Prognosis: Good, With continued OT status post acute discharge Visit RN Communication: Yes Medical Record Reviewed: Yes OT Type of Visit: Treatment (BID) Precautions Activity: mobilize with assistance, okay for RT LE ROM as tolerated; ok to see per RN Equipment: gait belt, RW, palacios Weight Bearing Status: WBAT Rt LE Oxygen Used: room air Other: fall risk Pain Assessment Pain Assessment: 0-10 Pain Score: 7 Pain Type: Surgical pain Pain Location: Hip, Back, Leg Pain Orientation: Right, Lower Pain Intervention(s): Cold applied, Repositioned, Ambulation/increased activity Response to Interventions: Quiet, No grimacing ADL / IADL Hand Dominance: Right Where Assessed: Standing at sink Grooming Assistance: Contact guard assist Grooming Deficit: Steadying, Supervision/safety, Wash/dry hands, Wash/dry face, Oral hygiene Footwear Assistance: Mod assist Footwear Deficit: R sock Other: Pt utilized figure 4 tech to don L sock seated on EOB; pt attempted to don R sock however required A d/t pain/weakness in RLE. Home Management - IADL Other: Pt utilized figure 4 tech to don L sock seated on EOB; pt attempted to don R sock however required A d/t pain/weakness in RLE. Hearing / Speech / Vision Hearing: Within Functional Limits Speech: Within Functional Limits Cognition Attention Span: Attends with cues to redirect Orientation Level: Oriented X4 Following Commands: Follows one step commands with repetition Safety Judgment: Decreased awareness of need for safety Awareness of Errors: Assistance required to identify errors made Bed Mobility Supine to Sit: Mod assist (x2) Other: HOB flat with bed rails down to simulate home environment. Pt utilized gait belt as leg repairer controller tester with cues for tech to A RLE OOB. Pt required mod A x2 to progress trunk. Pt in chair at end of session with call light within reach, RN aware. Transfers Sit to Stand: Max assist (x2) Stand to Sit: Max assist (x2) Other: Pt completed STS with max A x2 with cues for rocking for momentum and breathing tech as pt tends to hold breath during mobility tasks. Increased time/effort to complete, no LOB noted. Gait Gait Assistance: Min assist (x2) Assistive Device: Rolling walker Gait Distance: 20' Limiting Factors to Gait: Fatigue, Weakness, Pain Other: Pt performed functional mobility within room with BUE support on RW. Pt required increased time/effort to complete with cues for breathing tech/pacing. Balance Sitting Balance: Static: Good Sitting Balance: Dynamic: Fair (+) Standing Balance: Static: Fair Standing Balance: Dynamic: Fair (-) Other: Pt completed standing marches with LIVE IN HOUSEKEEPER with heavy BUE support on RW. Pt shakey with exercisehowever no LOB noted. Activity Tolerance Endurance: Tolerates 30 minutes activity with rest breaks Other: Rest breaks as needed. Increased time/effort for all tasks. Additional education on discharge recommendation provided with pt verbalizing understanding. Plan Occupational Therapy Care Plan Occupational Therapy Care Plan (Active) Template: OT - Occupational Therapy Problem: Activity Tolerance Dates: Start: 01/19/24 Disciplines: OT Goal: Tolerate > 30 minutes of activity WITHOUT rest breaks Dates: Start: 01/19/24 Expected End: 02/09/24 Description: Goal Description: Disciplines: OT Outcomes Date/Time User Outcome 01/20/24 1610 Katlin Goins, SERVIN/L Progressing 01/20/24 0945 Katlin Goins, SERVIN/L Progressing 01/19/24 1531 Nano Maher SERVIN/L Progressing Problem: Bed Mobility Dates: Start: 01/19/24 Disciplines: OT Goal: Patient will perform bed mobility with Modified [place] Dates: Start: 01/19/24 Expected End: 02/09/24 Description: Goal Description: Disciplines: OT Outcomes Date/Time User Outcome 01/20/24 1610 Katlin Goins, SERVIN/L Progressing 01/20/24 0945 Katlin Buster, SERVIN/L Progressing 01/19/24 1531 Nano Maher SERVIN/L Progressing Problem: Functional Mobility Dates: Start: 01/19/24 Disciplines: OT Goal: Patient will perform functional mobility with Modified [place] Dates: Start: 01/19/24 Expected End: 02/09/24 Description: Goal Description: Disciplines: OT Outcomes Date/Time User Outcome 01/20/24 1610 Katlin Buster, SERVIN/L Progressing 01/20/24 0945 Katlin Buster, SERVIN/L Progressing 01/19/24 1531 Nano Maher SERVIN/L Progressing Problem: Other (Customize) Dates: Start: 01/19/24 Disciplines: OT Goal: Improve Dates: Start: 01/19/24 Expected End: 02/09/24 Description: Goal Description: Complete ADLs [place] with AE/DME Disciplines: OT Outcomes Date/Time User Outcome 01/20/24 0945 CHARU MenesesA/Lanie Progressing Problem: Sitting Balance Dates: Start: 01/19/24 Disciplines: OT Goal: Improve balance to good Dates: Start: 01/19/24 Expected End: 02/09/24 Description: Static Dynamic Disciplines: OT Outcomes Date/Time User Outcome 01/20/24 1610 Katlin Goins, SERVIN/L Progressing 01/20/24 0945 Katlin Goins SERVIN/L Progressing 01/19/24 1531 CHARU HernandezA/Lanie Progressing Problem: Standing Balance Dates: Start: 01/19/24 Disciplines: OT Goal: Improve balance to good Dates: Start: 01/19/24 Expected End: 02/09/24 Description: Static Dynamic Disciplines: OT Outcomes Date/Time User Outcome 01/20/24 1610 Katlin Goins SERVIN/L Progressing 01/20/24 0945 Katlin Goins SERVIN/L Progressing 01/19/24 1531 CHARU HernandezA/Lanie Progressing Problem: Strength Dates: Start: 01/19/24 Disciplines: OT Goal: Improve strength Dates: Start: 01/19/24 Expected End: 02/09/24 Description: Of extremity/ location: Tolerate bilat UE exercises to increase strength and endurancefor self care tasks. To facilitate: Disciplines: OT Outcomes Date/Time User Outcome 01/19/24 1531 MALATHI Hernandez/Lanie Progressing Problem: Transfers Dates: Start: 01/19/24 Disciplines: OT Goal: Patient will perform transfers with Modified [place] Dates: Start: 01/19/24 Expected End: 02/09/24 Description: Goal Description: Disciplines: OT Outcomes Date/Time User Outcome 01/20/24 1610 Katlin Goins, SERVIN/L Progressing 01/20/24 0945 Katlin Goins SERVIN/L Progressing 01/19/24 1531 CHARU HernandezA/Lanie Progressing Occupational Therapy Care Plan (Resolved) There are no resolved problems. Principal Problem: Closed fracture of right hip, initial encounter ([facility]) Active Problems: Closed displaced intertrochanteric fracture of right femur ([facility]) Associated attestation - Virgil Nunes OTR/L - 01/21/2024 12:48 PM EDT I have reviewed and agree with this note and education documentation for this visit. [employer] [id number] Progress note* PT/OT/THERMAL SURFACING MACHINE OPERATOR - Shahrzad Garcias PTA - 01/20/2024 3:15 PM EDT Physical Therapy Treatment (BID) Discharge Recommendations PT Recommendations: Inpatient Rehab Inpatient Rehab Criteria: All inpatient rehab criteria expected to be met (Pt would benefit from IPR stay to increased strength, safety, balance, and endurance, and overall functional mobility prior to safe D/C home. Pt currently requires 2 person assistance for bed mobility and transfers.) 6 Clicks: Basic Mobility Turning from your back to your side while in a flat bed without using bed rails?: A lot Moving from lying on your back to sitting on side of flat bed without using bed rails?: A lot Moving to and from bed to a chair (including w/c)?: A lot Standing up from a chair using your arms (e.g. w/c or bedside chair)?: A lot To walk in hospital room?: A lot Climbing 3-5 steps with a railing?: Total Scoring 6 Clicks: Basic Mobility Raw Score: 11 CMS G Code Modifier: CL Therapy Plan PT Treatment/Interventions: Functional transfer training, LE strengthening/ROM, Endurance training,Patient/family training, Equipment eval/education, Balance, Bed mobility, Gait training, Functionalactivities PT Frequency: Twice a Day PT Duration: LOS. Patient Response to Treatment: Slow progress, decreased activity tolerance Assessment Patient Assessment Therapy Problem List: Decreased ADL status, Decreased balance, Decreased endurance, Decreased high-level ADLs, Decreased mobility, Decreased safe judgement during ADL, Decreased self-care trans, Decreased UE strength, Decreased LE strength Patient Response to Treatment: Slow progress, decreased activity tolerance Mood/Affect: Appropriate for circumstances Rehab Prognosis: Good, With continued PT status post acute discharge Visit RN Communication: Yes Medical Record Reviewed: Yes PT Type of Visit: Treatment (BID) Precautions Activity: mobilize with assistance, okay for RT LE ROM as tolerated; ok to see per RN Equipment: gait belt, RW, palacios Weight Bearing Status: WBAT Rt LE Oxygen Used: room air Other: fall risk Pain Assessment Pain Assessment: 0-10 Pain Score: 7 Pain Type: Surgical pain Pain Location: Hip, Back, Leg Pain Orientation: Right, Lower Pain Intervention(s): Cold applied, Repositioned, Ambulation/increased activity Response to Interventions: Quiet, No grimacing Hearing / Speech / Vision Hearing: Within Functional Limits Speech: Within Functional Limits Cognition Attention Span: Attends with cues to redirect Orientation Level: Oriented X4 Following Commands: Follows one step commands with repetition Safety Judgment: Decreased awareness of need for safety Awareness of Errors: Assistance required to identify errors made Other: Pt required increased time to complete functional mobility tasks for education on safety, fall risk and prevention, safety following D/C, recommendations, and current mobility level Bed Mobility Supine to Sit: Mod assist (x2) Other: Pt completed bed mobility with flat HOB and no use of bed railing. Education provided on useof limb repairer controller tester to assist RLE OOB. Pt able to advance LEs OOB with CGA for safety. Difficulty noted with trunk progression, therefore MOD A x2 required to complete. Pt denied dizziness with positionalchange. Pt sitting in recliner at end of tx session with call light in reach, all needs met, ice applied to RLE, RN aware. Transfers Sit to Stand: Max assist (x2) Stand to Sit: Max assist (x2) Other: MAX A x2 required for transfers this date with cueing for use of momentum, placement of BLEs, and breathing technique to reduce valsalva. Heavy posterior trunk lean upon standing. Cueing to shift weight forward to correct- fair return noted. Pt reporting dizziness upon standing with inc timeto recover. Educated on ensuring dizizness resolved prior to ambulating to redce fall risk. Gait Base of Support: Wide Pattern: Decreased jesusita, Antalgic gait, R Decreased heel strike, L Decreased heel strike, R Decreased foot clearance, L Decreased foot clearance, Forward trunk, R Decreased stance time, R Flexed knee (dec step height/length) Gait Assistance: Min assist (x2) Assistive Device: Rolling walker Gait Distance: 20' Limiting Factors to Gait: Fatigue, Weakness, Pain Other: Pt ambulated within room this date with MIN A x2 for safety and use of RW for BUE support. Increased time to complete d/t inc pain and fatigue, Educated pt on heel>toe gait pattern, TKE during SLS on RLE, and maintaining erect posture to inc stability. 01/20/24 1515 Neuro Re-ed LE exercises performed? Yes Seated unsupported x Standing alignment x Marching x (x3) Balance Sitting Balance: Static: Good Sitting Balance: Dynamic: Fair (+) Standing Balance: Static: Fair Standing Balance: Dynamic: Fair (-) Other: Pt completed standing marches within RW with heavy BUE supoport on RW handles. Unsteadiness present and MIN A x2 required for safety. Unsupported sitting at EOB with intermittent UE support onbed for stabilization noted- pt unable to perform trunk flexion to reach RLE to oleksandr sock at this time Activity Tolerance Endurance: Tolerates 30 minutes activity with rest breaks Other: Pt required frequent rest breaks secondary to pain and decreased endurance. Increased time required to complete tasks. Education provided on therapy D/C recommendation s and safety/fall prevention Plan Physical Therapy Care Plan Physical Therapy Care Plan (Active) Template: PT - Physical Therapy Problem: Activity Tolerance Dates: Start: 01/19/24 Disciplines: PT Goal: Tolerate > 30 minutes of activity WITH rest breaks Dates: Start: 01/19/24 Expected End: 02/02/24 Description: Goal Description: Disciplines: PT Outcomes Date/Time User Outcome 01/20/24 1607 Shahrzad Garcias PTA Progressing 01/20/24 1036 Shahrzad Garcias PTA Progressing 01/19/24 1721 Shahrzad Garcias PTA Progressing Goal Note filed on 01/20/24 1607 by Shahrzad Garcias PTA Evaluation of progress towards goal: Problem: Bed Mobility Dates: Start: 01/19/24 Disciplines: PT Goal: Patient will perform bed mobility with Minimum Assist Dates: Start: 01/19/24 Expected End: 02/02/24 Description: Goal Description: Disciplines: PT Outcomes Date/Time User Outcome 01/20/24 1607 Shahrzad Garcias PTA Progressing 01/20/24 1036 Shahrzad Garcias PTA Progressing 01/19/24 1721 Shahrzad Garcias PTA Progressing Goal Note filed on 01/20/24 1607 by Shahrzad Garcias PTA Evaluation of progress towards goal: Problem: Gait Dates: Start: 01/19/24 Disciplines: PT Goal: Patient will perform gait with Contact Guard Dates: Start: 01/19/24 Expected End: 02/02/24 Description: With_rw___,__150__feet Goal Description: Disciplines: PT Outcomes Date/Time User Outcome 01/20/24 1607 Shahrzad Garcias PTA Progressing 01/20/24 1036 Shahrzad Garcias PTA Progressing 01/19/24 1721 Shahrzad Garcias PTA Progressing Goal Note filed on 01/20/24 1607 by Shahrzad Gacrias PTA Evaluation of progress towards goal: Problem: Standing Balance Dates: Start: 01/19/24 Disciplines: PT Goal: Improve balance to good Dates: Start: 01/19/24 Expected End: 02/02/24 Description: Static Dynamic- good (-) with support of rw Disciplines: PT Outcomes Date/Time User Outcome 01/20/24 1036 Shahrzad Garcias PTA Progressing 01/19/24 1721 Shahrzad Garcias PTA Progressing Goal Note filed on 01/20/24 1607 by Shahrzad Garcias PTA Evaluation of progress towards goal: Problem: Strength Dates: Start: 01/19/24 Disciplines: PT Goal: Improve strength Dates: Start: 01/19/24 Expected End: 02/02/24 Description: Of extremity/ location:Complete 20 reps bilat UE/LE ex's To facilitate: Disciplines: PT Outcomes Date/Time User Outcome 01/20/24 1607 Shahrzad Garcias PTA Progressing 01/20/24 1036 Shahrzad Garcias PTA Progressing 01/19/24 1721 Shahrzad Garcias PTA Progressing Goal Note filed on 01/20/24 1607 by Shahrzad Garcias PTA Evaluation of progress towards goal: Problem: Transfers Dates: Start: 01/19/24 Disciplines: PT Goal: Patient will perform transfers with Contact Guard Dates: Start: 01/19/24 Expected End: 02/02/24 Description: Goal Description: Disciplines: PT Outcomes Date/Time User Outcome 01/20/24 1607 Shahrzad Garcias PTA Progressing 01/20/24 1036 Shahrzad Garcias PTA Progressing 01/19/24 1721 Shahrzad Garcias PTA Progressing Goal Note filed on 01/20/24 1607 by Shahrzad Garcias PTA Evaluation of progress towards goal: Physical Therapy Care Plan (Resolved) There are no resolved problems. Principal Problem: Closed fracture of right hip, initial encounter ([facility]) Active Problems: Closed displaced intertrochanteric fracture of right femur ([facility]) Associated attestation - Carlos Brar PT - 01/21/2024 3:57 PM EDT I have reviewed and agree with this note and education documentation for this visit. [facility] [id number] Consult note* Anne Ventura MD - 01/20/2024 11:14 AM EDT PM&R Consult Note HPI: 53-year-old male with history of hypertension admitted to the hospital secondary to a fall. Hestarted complaining of right hip pain. He denies any loss of consciousness, syncope or lightheadedness. He describes the pain as sharp character. He denies any numbness or tingling. He has been having difficulty with ambulation. Imaging showed right intertrochanteric fracture. He status post IM nailing. Postoperative weight-bearing as tolerated. He denies any fever or chills. He denies any chest pains or shortness of breath PMH: Past Medical History: Diagnosis Date Asthma Back pain Chronic cough from lisinopril Chronic pain disorder Colon cancer ([facility]) COPD (chronic obstructive pulmonary disease) ([facility]) Depression Diabetes mellitus type 2, controlled ([facility]) Fibromyalgia, primary Fracture of right hip, closed, initial encounter ([facility]) 01/17/2024 GERD (gastroesophageal reflux disease) Hyperlipidemia Hypertension Insulin-treated type 2 diabetes mellitus ([facility]) Joint pain Kidney stones Liver disease Low back pain Neck pain Obesity Osteoarthritis Visual impairment PSH: Past Surgical History: Procedure Laterality Date BACK SURGERY COLON SURGERY resection, 2018, [facility] DAVINCI REPAIR HERNIA VENTRAL N/A 10/27/2021 Performed by Ridge Cedillo MD at [facility] DENTAL SURGERY pt had all teeth removed HERNIA REPAIR x's 2 INSERTION INTRAMEDULLARY NAIL FEMUR-TFNA HIP FX Right 01/18/2024 Performed by Ang Figueroa MD at [facility] ORTHOPEDIC SURGERY 2007 foot, infected foot Allergies Allergen Reactions Insulin Glargine Nausea And Vomiting and GI Disturbance Current Facility-Administered Medications: acetaminophen (TYLENOL EXTRA STRENGTH) tablet 1,000 mg, 1,000 mg, oral, Q6H SADA, Stephen Hannah MD, 1,000 mg at 01/20/24 06 albuterol (PROVENTIL,VENTOLIN) nebulizer solution 2.5 mg, 2.5 mg, nebulization, Q6H PRN, Stephen Hannah MD calcium citrate (CALCITRATE) tablet 400 mg, 400 mg, oral, TID with meals, Vilma Beckwith PA-C, 400mg at 01/20/24 09 carvediloL (COREG) tablet 6.25 mg, 6.25 mg, oral, BID with meals, Abad Diallo DO, 6.25 mg at 01/20/2404 cholecalciferol (vitamin D3) tablet 2,000 Units, 2,000 Units, oral, Daily, Vilma Beckwith PA-C, 2,000 Units at 01/20/24 0904 citalopram (CeleXA) tablet 20 mg, 20 mg, oral, Daily, Stephen Hannah MD, 20 mg at 01/20/24 09 cyclobenzaprine (FLEXERIL) tablet 10 mg, 10 mg, oral, BID PRN, Stephen Hannah MD, 10 mg at 01/18/24 3585 dextrose (GLUTOSE) 40 % gel 15 g, 15 g, oral, PRN, Stephen Hannah MD dextrose 5 % (D5W) infusion, 100 mL/hr, intravenous, Continuous PRN, Stephen Hannah MD dextrose 50 % in water (D50W) 50% solution 25 mL, 25 mL, intravenous, PRN, Stephen Hannah MD enoxaparin (LOVENOX) syringe 40 mg, 40 mg, subcutaneous, Daily, Vilma Beckwith PA-C, 40 mg at 01/20/24 0615 ergocalciferol (DRISDOL) capsule 50,000 Units, 50,000 Units, oral, Weekly, Vilma Beckwith PA-C, 50,000 Units at 01/18/24 1630 fenofibrate micronized (LOFIBRA) capsule 134 mg, 134 mg, oral, Daily with breakfast, Stephen Hannah MD, 134 mg at 01/20/24 0904 gabapentin (NEURONTIN) capsule 800 mg, 800 mg, oral, 4x Daily, Stephen Hannah MD, 800 mg at 01/20/24 0905 glucagon HCL injection 1 mg, 1 mg, intramuscular, PRN, Stephen Hannah MD HYDROmorphone (PF) (DILAUDID) injection 1 mg, 1 mg, intravenous, Q2H PRN, Vilma Beckwith PA-C, 1 mg at 01/20/24 08 ibuprofen (MOTRIN) tablet 800 mg, 800 mg, oral, Q6H PRN, Stephen Hannah MD, 800 mg at 01/17/242013 insulin lispro (HumaLOG) injection 1-4 Units, 1-4 Units, subcutaneous, Nightly, Vilma Beckwith PA-C, 1 Units at 01/19/242135 insulin lispro (HumaLOG) injection 1-5 Units, 1-5 Units, subcutaneous, TID with meals, Vilma Beckwith PA-C, 2 Units at 01/19/241811 lidocaine (LIDODERM) 5 % 1 patch, 1 patch, transdermal, Daily, Stephen Hannah MD, 1 patch at 01/19/242131 losartan (COZAAR) tablet 100 mg, 100 mg, oral, Daily, Abad Diallo DO, 100 mg at 01/20/24 0905 magnesium sulfate IVPB 2000 mg/50 mL in iso-osmotic water (40 mg/mL premix), 2,000 mg, intravenous,PRN, Vilma Beckwith PA-C, Stopped at 01/18/24 0751 magnesium sulfate IVPB 4000 mg/100 mL in iso-osmotic water (40 mg/mL premix), 4,000 mg, intravenous, PRN, Vilma Beckwith PA-C, Stopped at 01/19/242217 melatonin (CIRCADIN) tablet 3 mg, 3 mg, oral, Nightly PRN, Stephen Hannah MD nicotine (NICODERM CQ) 14 mg/24 hr 1 patch, 1 patch, transdermal, Daily, Vilma Beckwith PA-C, 1 patch at 01/20/24 09 ondansetron (PF) (ZOFRAN) injection 4 mg, 4 mg, intravenous, Q4H PRN, Stephen Hannah MD oxyCODONE (ROXICODONE) immediate release tablet 10 mg, 10 mg, oral, Q3H PRN, Angelica Odom PA-C, 10 mg at 01/20/24 0649 oxyCODONE (ROXICODONE) immediate release tablet 5 mg, 5 mg, oral, Q3H PRN, Angelica Odom PA-C pantoprazole (PROTONIX) EC tablet 40 mg, 40 mg, oral, Daily, Abad Diallo, DO, 40 mg at 01/20/24 06 polyethylene glycol (GLYCOLAX) packet 17 g, 17 g, oral, BID, Stephen Hannah MD, 17 g at 01/20/24 09 potassium chloride (K-TAB,KLOR-CON) CR tablet 30-50 mEq, 30-50 mEq, oral, PRN, 40 mEq at 01/17/242013 OR potassium chloride (KAYCIEL) 20 mEq/15 mL solution 30-50 mEq, 30-50 mEq, oral, PRN, Vilma Beckwith PA-C rifAXIMin (XIFAXAN) tablet 550 mg, 550 mg, oral, Q12H SADA, Abad Diallo, DO, 550 mg at 01/20/24 0907 sennosides-docusate sodium (SENOKOT-S) 8.6-50 mg 2 tablet, 2 tablet, oral, BID, Stephen Hannah MD, 2 tablet at 01/20/24 0905 tamsulosin (FLOMAX) 24 hr capsule 0.4 mg, 0.4 mg, oral, Nightly, Stephen Hannah MD, 0.4 mg at 01/19/246 Social History Socioeconomic History Marital status: Single Spouse name: Not on file Number of children: Not on file Years of education: Not on file Highest education level: Not on file Occupational History Not on file Tobacco Use Smoking status: Every Day Current packs/day: 0.50 Average packs/day: 0.5 packs/day for 20.0 years (10.0 ttl pk-yrs) Types: Cigarettes Smokeless tobacco: Never Vaping Use Vaping status: Never Used Substance and Sexual Activity Alcohol use: Not Currently Drug use: No Sexual activity: Defer Other Topics Concern Not on file Social History Narrative Not on file Social Determinants of Health Financial Resource Strain: Not on file Food Insecurity: No Food Insecurity (01/17/2024) Hunger Screening Food Insecurity - Worry: Never True Food Insecurity - Inability: Never True Transportation Needs: No Transportation Needs (01/17/2024) PRAPARE - Transportation Lack of Transportation (Medical): No Lack of Transportation (Non-Medical): No Physical Activity: Not on file Stress: Not on file Social Connections: Not on file Interpersonal Safety: Not At Risk (01/17/2024) Humiliation, Afraid, Rape, and Kick questionnaire Fear of Current or Ex-Partner: No Emotionally Abused: No Physically Abused: No Sexually Abused: No Housing Instability: Low Risk (01/17/2024) Housing Instability Housing Instability: No Family History Problem Relation Age of Onset Heart disease Father Colon cancer Paternal Aunt Heart disease Maternal Grandmother Heart disease Paternal Grandmother Heart disease Paternal Grandfather ROS: A comprehensive 10+ review of systems was negative except for: What mentioned in HPI Physical Exam: General Appearance: Healthy, alert, active, cooperative, and in no distress Head: Normocephalic, without obvious abnormality, atraumatic Eyes: conjunctivae/corneas clear. PERRL, EOM's intact. Fundi benign. ENT: ENT exam normal, no neck nodes or sinus tenderness and neck without nodes Neck: no adenopathy, no carotid bruit, no JVD, supple, symmetrical, trachea midline, and thyroid not enlarged, symmetric, no tenderness/mass/nodules Lungs: clear to auscultation bilaterally and normal percussion bilaterally Heart: regular rate and rhythm, S1, S2 normal, no murmur, click, rub or gallop, normal apical impulse, prominent apical impulse, and regular rate and rhythm Abdomen: soft, non-tender; bowel sounds normal; no masses, no organomegaly Extremities: extremities normal, atraumatic, no cyanosis or edema, Homans sign is negative, no signof DVT, no edema, redness or tenderness in the calves or thighs, and no ulcers, gangrene or trophicchanges Skin: Skin color, texture, turgor normal. No rashes or lesions Neurologic: Gait difficulty Impression: Status post fall Right intertrochanteric fracture Status post IM nailing Gait difficulty Hypertension Plan: Continue PT, OT Min assist x2 with gait Max assist x2 with transfers Lovenox subQ for DVT prophylaxis Continue Neurontin for neuropathic pains Cozaar for hypertension Pain Management Family education Will benefit from inpatient rehab Will follow up with you for rehab needs Thank you for the consultation Anne Ventura MD [facility] [place]06-08-2024 Consult note* Anne Ventura MD - 01/20/2024 11:14 AM EDT PM&R Consult Note HPI: 53-year-old male with history of hypertension admitted to the hospital secondary to a fall. Hestarted complaining of right hip pain. He denies any loss of consciousness, syncope or lightheadedness. He describes the pain as sharp character. He denies any numbness or tingling. He has been having difficulty with ambulation. Imaging showed right intertrochanteric fracture. He status post IM nailing. Postoperative weight-bearing as tolerated. He denies any fever or chills. He denies any chest pains or shortness of breath PMH: Past Medical History: Diagnosis Date Asthma Back pain Chronic cough from lisinopril Chronic pain disorder Colon cancer ([facility]) COPD (chronic obstructive pulmonary disease) ([facility]) Depression Diabetes mellitus type 2, controlled ([facility]) Fibromyalgia, primary Fracture of right hip, closed, initial encounter ([facility]) 01/17/2024 GERD (gastroesophageal reflux disease) Hyperlipidemia Hypertension Insulin-treated type 2 diabetes mellitus ([facility]) Joint pain Kidney stones Liver disease Low back pain Neck pain Obesity Osteoarthritis Visual impairment PSH: Past Surgical History: Procedure Laterality Date BACK SURGERY COLON SURGERY resection, 2018, [facility] DAVINCI REPAIR HERNIA VENTRAL N/A 10/27/2021 Performed by Ridge Cedillo MD at [facility] D[facility]AL SURGERY pt had all teeth removed HERNIA REPAIR x's 2 INSERTION INTRAMEDULLARY NAIL FEMUR-TFNA HIP FX Right 01/18/2024 Performed by Ang Figueroa MD at [facility] ORTHOPEDIC SURGERY 2007 foot, infected foot Allergies Allergen Reactions Insulin Glargine Nausea And Vomiting and GI Disturbance Current Facility-Administered Medications: acetaminophen (TYLENOL EXTRA STRENGTH) tablet 1,000 mg, 1,000 mg, oral, Q6H SADA, Stephen Hannah MD, 1,000 mg at 01/20/24614 albuterol (PROVENTIL,VENTOLIN) nebulizer solution 2.5 mg, 2.5 mg, nebulization, Q6H PRN, Stephen Hannah MD calcium citrate (CALCITRATE) tablet 400 mg, 400 mg, oral, TID with meals, Vilma Beckwith PA-C, 400mg at 01/20/24 0904 carvediloL (COREG) tablet 6.25 mg, 6.25 mg, oral, BID with meals, Abad Diallo DO, 6.25 mg at 01/20/24903 cholecalciferol (vitamin D3) tablet 2,000 Units, 2,000 Units, oral, Daily, Vilma Beckwith PA-C, 2,000 Units at 01/20/24 09 citalopram (CeleXA) tablet 20 mg, 20 mg, oral, Daily, Stephen Hannah MD, 20 mg at 01/20/24903 cyclobenzaprine (FLEXERIL) tablet 10 mg, 10 mg, oral, BID PRN, Stephen Hannah MD, 10 mg at 01/18/242355 dextrose (GLUTOSE) 40 % gel 15 g, 15 g, oral, PRN, Stephen Hannah MD dextrose 5 % (D5W) infusion, 100 mL/hr, intravenous, Continuous PRN, Stephen Hannah MD dextrose 50 % in water (D50W) 50% solution 25 mL, 25 mL, intravenous, PRN, Stephen Hannah MD enoxaparin (LOVENOX) syringe 40 mg, 40 mg, subcutaneous, Daily, Vilma Beckwith PA-C, 40 mg at 01/20/24 0615 ergocalciferol (DRISDOL) capsule 50,000 Units, 50,000 Units, oral, Weekly, Vilma Beckwith PA-C, 50,000 Units at 01/18/24 1630 fenofibrate micronized (LOFIBRA) capsule 134 mg, 134 mg, oral, Daily with breakfast, Stephen Hannah MD, 134 mg at 01/20/24 0904 gabapentin (NEURONTIN) capsule 800 mg, 800 mg, oral, 4x Daily, Stephen Hannah MD, 800 mg at 01/20/24 0905 glucagon HCL injection 1 mg, 1 mg, intramuscular, PRN, Stephen Hannah MD HYDROmorphone (PF) (DILAUDID) injection 1 mg, 1 mg, intravenous, Q2H PRN, Vilma Beckwith PA-C, 1 mg at 01/20/24 08 ibuprofen (MOTRIN) tablet 800 mg, 800 mg, oral, Q6H PRN, Stephen Hannah MD, 800 mg at 01/17/242013 insulin lispro (HumaLOG) injection 1-4 Units, 1-4 Units, subcutaneous, Nightly, Vilma Beckwith PA-C, 1 Units at 01/19/242135 insulin lispro (HumaLOG) injection 1-5 Units, 1-5 Units, subcutaneous, TID with meals, Vilma Beckwith PA-C, 2 Units at 01/19/241811 lidocaine (LIDODERM) 5 % 1 patch, 1 patch, transdermal, Daily, Stephen Hannah MD, 1 patch at 01/19/242131 losartan (COZAAR) tablet 100 mg, 100 mg, oral, Daily, Abad Diallo DO, 100 mg at 01/20/24 09 magnesium sulfate IVPB 2000 mg/50 mL in iso-osmotic water (40 mg/mL premix), 2,000 mg, intravenous,PRN, Vilma Beckwith PA-C, Stopped at 01/18/24 0751 magnesium sulfate IVPB 4000 mg/100 mL in iso-osmotic water (40 mg/mL premix), 4,000 mg, intravenous, PRN, Vilma Beckwith PA-C, Stopped at 01/19/24 2218 melatonin (CIRCADIN) tablet 3 mg, 3 mg, oral, Nightly PRN, Stephen Hannah MD nicotine (NICODERM CQ) 14 mg/24 hr 1 patch, 1 patch, transdermal, Daily, Vilma Beckwith PA-C, 1 patch at 01/20/24 0906 ondansetron (PF) (ZOFRAN) injection 4 mg, 4 mg, intravenous, Q4H PRN, Stephen Hannah MD oxyCODONE (ROXICODONE) immediate release tablet 10 mg, 10 mg, oral, Q3H PRN, Angelica Odom PA-C, 10 mg at 01/20/24 0649 oxyCODONE (ROXICODONE) immediate release tablet 5 mg, 5 mg, oral, Q3H PRN, Angelica Odom PA-C pantoprazole (PROTONIX) EC tablet 40 mg, 40 mg, oral, Daily, Abad Diallo DO, 40 mg at 01/20/24 0617 polyethylene glycol (GLYCOLAX) packet 17 g, 17 g, oral, BID, Stephen Hannah MD, 17 g at 01/20/24 0905 potassium chloride (K-TAB,KLOR-CON) CR tablet 30-50 mEq, 30-50 mEq, oral, PRN, 40 mEq at 01/17/242013 OR potassium chloride (KAYCIEL) 20 mEq/15 mL solution 30-50 mEq, 30-50 mEq, oral, PRN, Vilma Beckwith PA-C rifAXIMin (XIFAXAN) tablet 550 mg, 550 mg, oral, Q12H SADA, Abad Diallo DO, 550 mg at 01/20/24 0907 sennosides-docusate sodium (SENOKOT-S) 8.6-50 mg 2 tablet, 2 tablet, oral, BID, Stephen Hannah MD, 2 tablet at 01/20/24 0905 tamsulosin (FLOMAX) 24 hr capsule 0.4 mg, 0.4 mg, oral, Nightly, Stephen Hannah MD, 0.4 mg at 01/19/242128 Social History Socioeconomic History Marital status: Single Spouse name: Not on file Number of children: Not on file Years of education: Not on file Highest education level: Not on file Occupational History Not on file Tobacco Use Smoking status: Every Day Current packs/day: 0.50 Average packs/day: 0.5 packs/day for 20.0 years (10.0 ttl pk-yrs) Types: Cigarettes Smokeless tobacco: Never Vaping Use Vaping status: Never Used Substance and Sexual Activity Alcohol use: Not Currently Drug use: No Sexual activity: Defer Other Topics Concern Not on file Social History Narrative Not on file Social Determinants of Health Financial Resource Strain: Not on file Food Insecurity: No Food Insecurity (01/17/2024) Hunger Screening Food Insecurity - Worry: Never True Food Insecurity - Inability: Never True Transportation Needs: No Transportation Needs (01/17/2024) PRAPARE - Transportation Lack of Transportation (Medical): No Lack of Transportation (Non-Medical): No Physical Activity: Not on file Stress: Not on file Social Connections: Not on file Interpersonal Safety: Not At Risk (01/17/2024) Humiliation, Afraid, Rape, and Kick questionnaire Fear of Current or Ex-Partner: No Emotionally Abused: No Physically Abused: No Sexually Abused: No Housing Instability: Low Risk (01/17/2024) Housing Instability Housing Instability: No Family History Problem Relation Age of Onset Heart disease Father Colon cancer Paternal Aunt Heart disease Maternal Grandmother Heart disease Paternal Grandmother Heart disease Paternal Grandfather ROS: A comprehensive 10+ review of systems was negative except for: What mentioned in HPI Physical Exam: General Appearance: Healthy, alert, active, cooperative, and in no distress Head: Normocephalic, without obvious abnormality, atraumatic Eyes: conjunctivae/corneas clear. PERRL, EOM's intact. Fundi benign. ENT: ENT exam normal, no neck nodes or sinus tenderness and neck without nodes Neck: no adenopathy, no carotid bruit, no JVD, supple, symmetrical, trachea midline, and thyroid not enlarged, symmetric, no tenderness/mass/nodules Lungs: clear to auscultation bilaterally and normal percussion bilaterally Heart: regular rate and rhythm, S1, S2 normal, no murmur, click, rub or gallop, normal apical impulse, prominent apical impulse, and regular rate and rhythm Abdomen: soft, non-tender; bowel sounds normal; no masses, no organomegaly Extremities: extremities normal, atraumatic, no cyanosis or edema, Homans sign is negative, no signof DVT, no edema, redness or tenderness in the calves or thighs, and no ulcers, gangrene or trophicchanges Skin: Skin color, texture, turgor normal. No rashes or lesions Neurologic: Gait difficulty Impression: Status post fall Right intertrochanteric fracture Status post IM nailing Gait difficulty Hypertension Plan: Continue PT, OT Min assist x2 with gait Max assist x2 with transfers Lovenox subQ for DVT prophylaxis Continue Neurontin for neuropathic pains Cozaar for hypertension Pain Management Family education Will benefit from inpatient rehab Will follow up with you for rehab needs Thank you for the consultation Anne Ventura MD * Hannah Nails, AARTI - 01/18/2024 2:17 PM EDTAssociated Order(s): IP CONSULT TO NUTRITION SERVICES NUTRITION ADULT INITIAL EVALUATION NUTRITION ASSESSMENT: Reason to be seen: Consult for assessment Patient History: Admit Diagnosis: Patient Active Problem List Diagnosis Facial infection Abdominal pain Closed displaced intertrochanteric fracture of right femur ([facility]) Closed fracture of right hip, initial encounter ([facility]) Past Medical History: Past Medical History: Diagnosis Date Asthma Back pain Chronic cough from lisinopril Chronic pain disorder Colon cancer ([facility]) COPD (chronic obstructive pulmonary disease) ([facility]) Depression Diabetes mellitus type 2, controlled ([facility]) Fibromyalgia, primary Fracture of right hip, closed, initial encounter ([facility]) 01/17/2024 GERD (gastroesophageal reflux disease) Hyperlipidemia Hypertension Insulin-treated type 2 diabetes mellitus ([facility]) Joint pain Kidney stones Liver disease Low back pain Neck pain Obesity Osteoarthritis Visual impairment Past Surgical History: Past Surgical History: Procedure Laterality Date BACK SURGERY COLON SURGERY resection, 2018, [facility] DAVINCI REPAIR HERNIA VENTRAL N/A 10/27/2021 Performed by Ridge Cedillo MD at [facility] DENTAL SURGERY pt had all teeth removed HERNIA REPAIR x's 2 ORTHOPEDIC SURGERY 2007 foot, infected foot Brief Clinical Summary: Patient initially presented to OSH d/t right hip pain s/p fall. [facility]. PMHx includes IDDM2, HLD, fibromyalgia, GERD, colon cancer s/p sigmoid colectomy, liver cirrhosis, COPD. Biochemical Data, Medical Tests, and Procedures: 01/17 OR; IM nail right intertrochanteric hip fx Labs: Results from last 3 days Lab Units 01/18/24 0257 01/17/24 0535 SODIUM mmol/L 138 136 POTASSIUM mmol/L 3.9 3.3* CHLORIDE mmol/L 101 101 CO2 mmol/L 28 25 BUN mg/dL 8 17 CREATININE mg/dL 0.70 0.95 CALCIUM mg/dL 9.4 8.8 ALBUMIN g/dL -- 3.9 ALK PHOS U/L -- 42 ALT U/L -- 13 AST U/L -- 24 Results from last 7 days Lab Units 01/18/24 0724 01/18/24 0257 01/17/24 1754 01/17/24 0535 BEDSIDE GLUCOSE mg/dL 119* -- 94 -- GLUCOSE mg/dL -- 123* -- 102* Results from last 3 days Lab Units 01/18/24 0257 01/17/24 0535 WBC X10E9/L 6.2 8.1 HEMOGLOBIN g/dL 15.2 13.7 HEMATOCRIT % 44.5 40.6 PLATELETS X10E9/L 80* 99* MCV fL 86 85 Results from last 3 days Lab Units 01/18/24 0300 01/17/24 0535 MAGNESIUM mg/dL 1.7* 1.3* No data from last 3 days. Results from last 3 days Lab Units 01/17/24204401/17/24 0535 TOTAL BILIRUBIN mg/dL -- 0.6 BILIRUBIN, URINE Negative -- Lab Results Component Value Date HGBA1C 6.6 (H) 01/18/2024 Lab Results Component Value Date IRON 74 01/17/2024 TIBC 449 (H) 01/17/2024 FERRITIN 42 01/17/2024 Lab Results Component Value Date IRONSAT 16 (L) 01/17/2024 Lab Results Component Value Date [id number] 242 01/17/2024 Lab Results Component Value Date FOLATE 9.3 01/17/2024 Lab Results Component Value Date VITD25 20.4 (L) 01/17/2024 Comments (labs): Hypomagnesemia (1.7) Medications/ Parenteral: Reviewed Medications Prior to Admission Medication Sig Dispense Refill Last Dose albuterol (PROVENTIL HFA;VENTOLIN HFA) 90 mcg/actuation inhaler Inhale 2 puffs every 6 (six) hours as needed for wheezing. Other - as prescribed carvediloL (COREG) 6.25 mg tablet Take 1 tablet (6.25 mg total) by mouth in the morning and 1 tablet (6.25 mg total) in the evening. Take with meals. citalopram (CeleXA) 20 mg tablet Take 1 tablet (20 mg total) by mouth in the morning. Indications: major depressive disorder. colestipoL (COLESTID) 1 g tablet Take 1 tablet (1 g total) by mouth in the morning. cyclobenzaprine (FLEXERIL) 10 mg tablet Take 1 tablet (10 mg total) by mouth 2 (two) times a day asneeded for muscle spasms. 10 tablet 0 Other - as prescribed fenofibrate (LOFIBRA) 160 mg tablet Take 1 tablet (160 mg total) by mouth in the morning. gabapentin (NEURONTIN) 800 mg tablet Take 1 tablet (800 mg total) by mouth in the morning and 1 tablet (800 mg total) at noon and 1 tablet (800 mg total) in the evening and 1 tablet (800 mg total) before bedtime. Indications: neuropathic pain. 9am, 2pm, 8pm, midnight. HUMALOG KWIKPEN INSULIN 100 unit/mL insulin pen Inject 18 Units under the skin in the morning and 18 Units at noon and 18 Units in the evening. Inject with meals. 0 hydroCHLOROthiazide (HYDRODIURIL) 25 mg tablet Take 1 tablet (25 mg total) by mouth daily. hyoscyamine (ANASPAZ,LEVSIN) 0.125 mg tablet Take 1 tablet (0.125 mg total) by mouth in the morningand 1 tablet (0.125 mg total) at noon and 1 tablet (0.125 mg total) in the evening and 1 tablet (0.125 mg total) before bedtime. linagliptin-metFORMIN 2.5-1,000 mg tablet Take 1 tablet by mouth 2 (two) times daily at 0800 and 1500. losartan (COZAAR) 100 mg tablet Take 1 tablet (100 mg total) by mouth in the morning. magnesium oxide (MAGOX) 400 mg tablet Take 1 tablet (400 mg total) by mouth in the morning. meloxicam (MOBIC) 15 mg tablet Take 1 tablet (15 mg total) by mouth daily as needed for pain. omeprazole (PriLOSEC) 40 mg capsule Take 1 capsule (40 mg total) by mouth in the morning and at bedtime. ondansetron (ZOFRAN) 8 mg tablet Take 1 tablet (8 mg total) by mouth every 8 (eight) hours as needed for nausea or vomiting. Other - as prescribed OZEMPIC 0.25 mg or 0.5 mg (2 mg/3 mL) pen injector Inject 0.5 mg under the skin once a week. Monday sucralfate (CARAFATE) 1 gram tablet Take 1 tablet (1 g total) by mouth in the morning and 1 tablet (1 g total) at noon and 1 tablet (1 g total) in the evening and 1 tablet (1 g total) before bedtime. tamsulosin (FLOMAX) 0.4 mg capsule Take 1 capsule (0.4 mg total) by mouth nightly. 0 traZODone (DESYREL) 50 mg tablet Take 1 tablet (50 mg total) by mouth nightly. TRESIBA FLEXTOUCH U-100 100 unit/mL (3 mL) insulin pen Inject 20 Units under the skin in the morning. VIBERZI 100 mg tablet Take 1 tablet (100 mg total) by mouth in the morning and 1 tablet (100 mg total) in the evening. Take with meals. XIFAXAN 550 mg tablet Take 1 tablet (550 mg total) by mouth in the morning and at bedtime. acetaminophen (TYLENOL EXTRA STRENGTH) 500 mg tablet Take 2 tablets (1,000 mg total) by mouth every6 (six) hours. 30 tablet 0 UNIFINE PENTIPS PLUS 31 gauge x 1/4 needle use four times a day as directed 0 Current Facility-Administered Medications Medication Dose Route Frequency Provider Last Rate Last Admin [Transfer Hold] acetaminophen (TYLENOL EXTRA STRENGTH) tablet 1,000 mg 1,000 mg oral Q6H COUNTS INCLUDE 234 BEDS AT THE [facility] Stephen Hannah MD 1,000 mg at 01/18/24 0524 [Transfer Hold] albuterol (PROVENTIL,VENTOLIN) nebulizer solution 2.5 mg 2.5 mg nebulization Q6H PRN Stephen Hannah MD calcium citrate (CALCITRATE) tablet 400 mg 400 mg oral TID with meals Vilma Beckwith PA-C ceFAZolin (ANCEF) 3,000 mg in sodium chloride 0.9 % 100 mL IVPB-MBP 3,000 mg intravenous Q8H Darrell Beckwith PA-C [Transfer Hold] cholecalciferol (VITAMIN D3) capsule 50,000 Units 50,000 Units oral Weekly DO Stella cholecalciferol (vitamin D3) tablet 2,000 Units 2,000 Units oral Daily Vilma Beckwith PA-C [Transfer Hold] citalopram (CeleXA) tablet 20 mg 20 mg oral Daily Stephen Hannah MD 20 mg at 01/18/24 0845 [Transfer Hold] cyclobenzaprine (FLEXERIL) tablet 10 mg 10 mg oral BID PRN Stephen Hannah MD 10mg at 01/17/242023 [Transfer Hold] dextrose (GLUTOSE) 40 % gel 15 g 15 g oral PRN Stephen Hannah MD [Transfer Hold] dextrose 5 % (D5W) infusion 100 mL/hr intravenous Continuous PRN Stephen Hannah MD [Transfer Hold] dextrose 50 % in water (D50W) 50% solution 25 mL 25 mL intravenous PRN Stephen Hannah MD [START ON 01/19/2024] enoxaparin (LOVENOX) syringe 40 mg 40 mg subcutaneous Daily Vilma Beckwith PA-C ergocalciferol (DRISDOL) capsule 50,000 Units 50,000 Units oral Weekly Vilma Beckwith PA-C [Transfer Hold] fenofibrate micronized (LOFIBRA) capsule 134 mg 134 mg oral Daily with breakfast Stephen Hannah MD fentaNYL (SUBLIMAZE) 50 mcg/mL injection - Pyxis Override Pull fentaNYL (SUBLIMAZE) injection 25 mcg 25 mcg intravenous Q5 Min PRN Jonathan Reyes MD fentaNYL (SUBLIMAZE) injection 50 mcg 50 mcg intravenous Q5 Min PRN Jonathan Reyes MD 50 mcg at 01/18/24 1414 [Transfer Hold] gabapentin (NEURONTIN) capsule 800 mg 800 mg oral 4x Daily Stephen Hannah MD 800 mg at 01/17/24 2148 [Transfer Hold] glucagon HCL injection 1 mg 1 mg intramuscular PRN Stephen Hannah MD HYDROmorphone (DILAUDID) injection 0.2 mg 0.2 mg intravenous Q5 Min PRN Jonathan Reyes MD HYDROmorphone (DILAUDID) injection 0.4 mg 0.4 mg intravenous Q5 Min PRN Jonathan Reyes MD [Transfer Hold] HYDROmorphone (PF) (DILAUDID) injection 1 mg 1 mg intravenous Q2H PRN Geoffrey Mckee DO 1 mg at 01/18/24 0827 [Transfer Hold] ibuprofen (MOTRIN) tablet 800 mg 800 mg oral Q6H PRN Stephen Hannah MD 800 mg at 01/17/242013 [Transfer Hold] insulin lispro (HumaLOG) injection 1-4 Units 1-4 Units subcutaneous Nightly Dianelys Hannah MD [Transfer Hold] insulin lispro (HumaLOG) injection 1-5 Units 1-5 Units subcutaneous TID with meals Stephen Hannah MD lactated ringers infusion 50 mL/hr intravenous Continuous Jonathan Reyes MD [Transfer Hold] lidocaine (LIDODERM) 5 % 1 patch 1 patch transdermal Daily Stephen Hannah MD 1 patch at 01/17/242013 [Transfer Hold] magnesium sulfate IVPB 2000 mg/50 mL in iso-osmotic water (40 mg/mL premix) 2,000 mg intravenous PRN Stephen Hannah MD Stopped at 01/18/24 0751 [Transfer Hold] magnesium sulfate IVPB 4000 mg/100 mL in iso-osmotic water (40 mg/mL premix) 4,000 mg intravenous PRN Stephen Hannah MD [Transfer Hold] melatonin (CIRCADIN) tablet 3 mg 3 mg oral Nightly PRN Stephen Hannah MD naloxone (NARCAN) injection 0.1 mg 0.1 mg intravenous PRN Jonathan Reyes MD [Transfer Hold] nicotine (NICODERM CQ) 14 mg/24 hr 1 patch 1 patch transdermal Daily Stephen Hannah MD 1 patch at 01/17/24 2314 [Transfer Hold] ondansetron (PF) (ZOFRAN) injection 4 mg 4 mg intravenous Q4H PRN Stephen Hannah MD ondansetron (PF) (ZOFRAN) injection 4 mg 4 mg intravenous Once PRN Jonathan Reyes MD [Transfer Hold] oxyCODONE (ROXICODONE) immediate release tablet 10 mg 10 mg oral Q4H PRN Stephen Hannah MD 10 mg at 01/18/24 0304 [Transfer Hold] oxyCODONE (ROXICODONE) immediate release tablet 5 mg 5 mg oral Q4H PRN Stephen Hannah MD [Transfer Hold] pantoprazole (PROTONIX) EC tablet 40 mg 40 mg oral Daily Stephen Hannah MD [Transfer Hold] polyethylene glycol (GLYCOLAX) packet 17 g 17 g oral BID Stephen Hannah MD 17 gat 01/17/242014 [Transfer Hold] potassium chloride (K-TAB,KLOR-CON) CR tablet 30-50 mEq 30-50 mEq oral PRN Stephen Hannah MD 40 mEq at 01/17/242013 Or [Transfer Hold] potassium chloride (KAYCIEL) 20 mEq/15 mL solution 30-50 mEq 30- 50 mEq oral PRN Stephen Hannah MD scopolamine (TRANSDERM-SCOP) 1 mg/3 days 1 patch 1 patch transdermal Once Manuel Strauss MD 1 patch at 01/18/24 1105 [Transfer Hold] sennosides-docusate sodium (SENOKOT-S) 8.6-50 mg 2 tablet 2 tablet oral BID Dianelys Hannah MD 2 tablet at 01/17/242014 [Transfer Hold] tamsulosin (FLOMAX) 24 hr capsule 0.4 mg 0.4 mg oral Nightly Stephen Hannah MD 0.4 mg at 01/17/24 4386 Nutrition Focused Physical Findings Last BM 01/14 Extremities, Muscles, and Bones A. Muscle Loss-EMILY not on floor B. Loss of Subcutaneous Fat-EMILY not on floor Skin (per nursing flow sheets): Skin Color: [place] (01/18/24 1335) Skin Temp: Dry; Warm (01/18/241334) Wound (per nursing flow sheets): Wound 01/18/24 Incision Leg Right-Site Assessment: Unable to assess (01/18/24 133) Gastrointestinal (per nursing flow sheets): Abdomen Assessment: Rounded; Obese (01/18/24 1335) Last BM Date: 01/15/24 (01/18/24 0800) Passing Flatus: No (01/18/241334) RUQ Bowel Sounds: Hypoactive (01/18/24 133) LUQ Bowel Sounds: Hypoactive (01/18/241334) RLQ Bowel Sounds: Hypoactive (01/18/241334) LLQ Bowel Sounds: Hypoactive (01/18/241334) GI Symptoms: None (01/18/241334) Edema (per nursing flow sheets): --- Intake/ Output Last 24 hrs: Intake/Output Summary (Last 24 hours) at 01/18/2024 1417 Last data filed at 01/18/2024 1315 Gross per 24 hour Intake 800 ml Output 2200 ml Net -1400 ml Food/Nutrition Related History: Diet History: Unable to obtain diet/weight history at this time as patient currently off the floor.Patient did not trigger for 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 Allergies: Allergies Allergen Reactions Insulin Glargine Nausea And Vomiting and GI Disturbance Diet/ Nutrition Order Review: Diet Intakes: NPO (01/17) Anthropometrics: Ht Readings from Last 1 Encounters: 01/18/24 185.4 cm (6' 0.99 ) Wt Readings from Last 20 Encounters: 01/18/24 115.7 kg (255 lb) 08/19/22 113.4 kg (250 lb) 03/16/22 115.2 kg (254 lb) 11/16/21 115.5 kg (254 lb 9.6 oz) 11/02/21 114.4 kg (252 lb 3.3 oz) 10/31/21 116.6 kg (257 lb) 10/27/21 115.7 kg (255 lb) 10/05/21 118 kg (260 lb 3.2 oz) 09/09/21 118.4 kg (261 lb) 07/02/21 102.1 kg (225 lb) 06/11/21 117 kg (258 lb) 04/15/21 117.5 kg (259 lb) 04/05/21 116.8 kg (257 lb 8 oz) 03/24/21 115.2 kg (254 lb) 05/29/20 114.2 kg (251 lb 12.8 oz) 09/25/19 108.9 kg (240 lb) 11/04/18 118.8 kg (262 lb) 04/12/18 118.8 kg (262 lb) 01/20/18 112.5 kg (248 lb) 07/21/17 111.1 kg (245 lb) Last 3 Weight Readings 01/17/24 1009 01/17/24 1609 01/18/24 1049 Weight: 113.4 kg (250 lb) 115.7 kg (255 lb) 115.7 kg (255 lb) Current Body Weight: 115.7kg (01/17; unknown method/stated) Admit Weight: 113.4kg (01/16; unknown method)-question if this was UBW from 08/19/22) Usual Body Weight: 113.4kg (08/19/22) [place] Body Weight: 83.6kg Percent [place] Body Weight: 139 Weight Changes: Need new weight, bed scale vs standing scale. Body Mass Index: Body mass index is 33.65 kg/m . BMI Category: Obese class 1 (30.00- 34.99) Comparative Standards: Estimated Energy Needs: 1225-3640 kcals daily. Method and weight used: 25-32 kcal/kg IBW (83.6kg) Estimated Protein Needs: 100-165 grams daily. Method and weight used: 1.2-2g protein/kg IBW Estimated Fluid Needs: 3313-7792 ml daily. Method weight used: 1ml/kcal Comments: General Needs; higher end d/t hip surgery Malnutrition Status: Malnutrition Present: Need more info. NUTRITION DIAGNOSIS: Intake Diagnosis: Predicted suboptimal energy intake (NI 1.4) related to increased nutrient needs as evidenced by hip fracture surgery and oral intakes not meeting needs. NUTRITION INTERVENTIONS: Continue NPO status for procedure. Advance following/as medically appropriate. Will add on oral nutritional supplements for when diet advanced. Will add Glucerna BID to provide 220 kcal and 10 g protein per serving. GOAL(S): Meet estimated calorie and protein needs. NUTRITION MONITORING AND EVALUATION: PO intakes, weight trend, labs, POC and overall status. Hannah Nails RD, LD Clinical Dietitian Direct Line: * Ang Figueroa MD - 01/17/2024 10:58 AM EDT Images from the original note were not included. Chief complaint: right hip pain HPI: Ruth Smith is a 53 y.o. [facility]o right hip pain after a fall. Patient states that he was helping his neighbor take his blood pressure and tripped and fell over his dog. Patient admits to pain to right hip. Patient denies pain to right knee, ankle, foot. Patient denies pain to upper extremities. 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 Patient was seen at outside hospital and was [facility]. Patient has no other complaints at this time. Date of injury was 01/16/24. Pain is described as Sharp, localized to his right hip. He does not have associated injuries. He is having any numbness or tingling. Pain is improved with rest; and worsened by movement, activity, and dependent positioning Past Medical History: Diagnosis Date Asthma Back pain Chronic cough Chronic pain disorder Colon cancer (CMS-HCC) Colon cancer ([facility]) Depression Diabetes mellitus type 2, controlled ([facility]) Fibromyalgia, primary GERD (gastroesophageal reflux disease) Hyperlipidemia Hypertension Insulin-treated type 2 diabetes mellitus (CMS-HCC) Joint pain Kidney stones Liver disease Low back pain Neck pain Obesity Osteoarthritis Visual impairment Past Surgical History: Procedure Laterality Date BACK SURGERY COLON SURGERY resection, 2018, [facility] DAVINCI REPAIR HERNIA VENTRAL N/A 10/27/2021 Performed by Ridge Cedillo MD at [facility] DENTAL SURGERY pt had all teeth removed HERNIA REPAIR x's 2 ORTHOPEDIC SURGERY 2007 foot, infected foot Social History Tobacco Use Smoking status: Every Day Current packs/day: 0.50 Average packs/day: 0.5 packs/day for 20.0 years (10.0 ttl pk-yrs) Types: Cigarettes Smokeless tobacco: Never Substance Use Topics Alcohol use: No Drug use: No Family History Problem Relation Age of Onset Heart disease Father Colon cancer Paternal Aunt Heart disease Maternal Grandmother Heart disease Paternal Grandmother Heart disease Paternal Grandfather Allergies as of 01/17/2024 (No Known Allergies) Current Facility-Administered Medications: HYDROmorphone (PF) (DILAUDID) injection 1 mg, 1 mg, intravenous, Q2H PRN, Geoffrey Mckee DO, 1 mg at 01/17/24 1023 sodium chloride 0.9 % infusion, 250 mL/hr, intravenous, Continuous, Geoffrey Mckee DO, Last Rate: 250 mL/hr at 01/17/24 1034, 250 mL/hr at 01/17/24 1034 Current Outpatient Medications: acetaminophen (TYLENOL EXTRA STRENGTH) 500 mg tablet, Take 2 tablets (1,000 mg total) by mouth every 6 (six) hours., Disp: 30 tablet, Rfl: 0 albuterol (PROVENTIL HFA;VENTOLIN HFA) 90 mcg/actuation inhaler, Inhale 2 puffs every 6 (six) hoursas needed for wheezing., Disp: , Rfl: citalopram (CeleXA) 20 mg tablet, Take 20 mg by mouth daily Indications: major depressive disorder., Disp: , Rfl: cyclobenzaprine (FLEXERIL) 10 mg tablet, Take 1 tablet (10 mg total) by mouth 2 (two) times a day as needed for muscle spasms., Disp: 10 tablet, Rfl: 0 fenofibrate (LOFIBRA) 160 mg tablet, Take 160 mg by mouth daily., Disp: , Rfl: gabapentin (NEURONTIN) 300 mg capsule, Take 300 mg by mouth 3 (three) times a day Indications: neuropathic pain. , Disp: , Rfl: HUMALOG KWIKPEN INSULIN 100 unit/mL insulin pen, Inject 18 Units under the skin 3 (three) times a day with meals. , Disp: , Rfl: 0 ibuprofen (ADVIL,MOTRIN) 800 mg tablet, Take 1 tablet (800 mg total) by mouth every 6 (six) hours as needed for pain., Disp: 30 tablet, Rfl: 0 insulin glargine (LANTUS) 100 unit/mL (3 mL) insulin pen, Inject 45 Units under the skin nightly. ,Disp: , Rfl: linagliptin-metFORMIN 2.5-1,000 mg tablet, Take by mouth 2 (two) times daily at 0800 and 1500. , Disp: , Rfl: lisinopriL (PRINIVIL,ZESTRIL) 40 mg tablet, Take 40 mg by mouth daily Indications: high blood pressure., Disp: , Rfl: metoprolol succinate XL (TOPROL-XL) 50 mg 24 hr tablet, Take 50 mg by mouth 2 (two) times a day., Disp: , Rfl: ondansetron (ZOFRAN) 8 mg tablet, Take 8 mg by mouth every 8 (eight) hours as needed for nausea or vomiting. , Disp: , Rfl: pantoprazole (PROTONIX) 40 mg EC tablet, Take 40 mg by mouth daily., Disp: , Rfl: polyethylene glycol (GLYCOLAX) 17 gram packet, Take 17 g by mouth in the morning and 17 g before bedtime., Disp: 30 packet, Rfl: 1 sennosides-docusate sodium (SENOKOT-S) 8.6-50 mg, Take 2 tablets by mouth in the morning and 2 tablets before bedtime., Disp: 60 tablet, Rfl: 1 sucralfate (CARAFATE) 1 gram tablet, Take 1 g by mouth 4 (four) times a day., Disp: , Rfl: tamsulosin (FLOMAX) 0.4 mg capsule, Take 0.4 mg by mouth nightly. , Disp: , Rfl: 0 traZODone (DESYREL) 50 mg tablet, Take 50 mg by mouth nightly., Disp: , Rfl: UNIFINE PENTIPS PLUS 31 gauge x 1/4 needle, use four times a day as directed, Disp: , Rfl: 0 VIBERZI 100 mg tablet, Take 100 mg by mouth 2 (two) times a day with meals., Disp: , Rfl: REVIEW OF SYSTEMS: MSK: Positive for right hip pain, Neuro: Negative for numbness or tingling, All other ROS negative (10 systems reviewed) PHYSICAL EXAM: Vitals: BP 102/86 Pulse 77 Temp 36.7 C (98.1 F) (Oral) Resp 18 Ht 180.3 cm (5' 11 ) Wt 113.4 kg (250 lb) SpO2 96% BMI 34.87 kg/m General: Well-nourished, Well-developed and Age appropriate LOC: awake and alert Orientation: oriented to person, place, time, and recent events Psych: [place] and [place]: Lying supine on hospital bed HEENT: normocephalic, atraumatic head, neck, & facies, no ecchymosis or abrasions, midline trachea Resp: no respiratory distress, acyanotic, normal RR, breathing easily, nonlabored, no use of accessory muscles Musculoskeletal: right Lower Extremity: Observation: No obvious gross deformity noted to right LE. Skin: intact without warmth, erythema, lesions, cuts, or abrasions. Palpation: +TTP to right hip. Non-tender to knee, ankle, foot. No palpable gross step offs or crepitus. Positive log roll. ROM: Hip/knee: Unable to assess due to known hip fracture Ankle: AROM neutral to full DF, AROM neutral to full PF Foot: Full AROM flexion 1-5 digits, full AROM extension 1-5 digits Neurovascular: 2+ palpable DP and PT pulses. Toes pink and warm with cap refill <2 seconds. Fullsensation to light touch pressure and pain DP/SP/Tibial/Sural/Saphenous nerve innervations right foot. Compartments: Thigh/anterior tibial/calf compartments soft and compressible. IMAGING: I personally viewed X-ray of right hip - Cursory exam reveals right nondisplaced intertrochanteric fracture. No other acute osseous abnormalities noted. I personally viewed CT of right hip - Cursory exam reveals right nondisplaced intertrochanteric fracture. No other acute osseous abnormalities noted. Imaging: CT hip right without contrast Result Date: 01/17/2024 CT right hip without contrast HISTORY: Fracture COMPARISON: Radiograph earlier same day TECHNIQUE: CT right hip without contrast performed according to standard protocol. FINDINGS: Acute fracture extending from the right greater trochanter through the intertrochanteric region. No displacement. Hip joint intact. No additional fractures. Soft tissue structures are unremarkable. IMPRESSION: * Acute nondisplaced intertrochanteric right hip fracture. All CT scans at this facility use dose modulation, iterative reconstruction, and/or weight based dosing when appropriate to reduce radiation dose to as low as reasonably achievable. Finalized by Sylvester Collins MD on 01/17/2024 4:37 AM X-ray hip right 2-3 views with or without pelvis Result Date: 01/17/2024 XR HIP RT 2-3 VIEWS W OR WO PELVIS HISTORY: Hip pain, fall, injury COMPARISON: None FINDINGS: AP and lateral views of the right hip with an AP pelvis view obtained. Acute, nondisplaced fracture involving the right greater trochanter. There is no destructive osseous lesion. The joint space is well maintained without degenerative changes. The osseous structures are well mineralized. IMPRESSION: * Acute, nondisplaced fracture involving the right greater trochanter. Extension through the intertrochanteric region not fully excluded on these images. Approved by Resident: Singh Melgar DO on 01/17/2024 3:49 AM ISylvester MD have personally reviewed the image(s) and agree with and/or edited the report Finalized by Sylvester Collins MD on 01/17/2024 3:54 AM X-ray knee right 1 or 2 views Result Date: 01/17/2024 2 VIEWS RIGHT KNEE HISTORY: Fall, pain COMPARISON: None FINDINGS: Chondrocalcinosis. No acute fracture. No dislocation. IMPRESSION: No acute osseous abnormalities in the right knee. Finalized by Sylvester Collins MD on 01/17/2024 3:49 AM LABS: Lab Results Component Value Date WBC 8.1 01/17/2024 HGB 13.7 01/17/2024 HCT 40.6 01/17/2024 MCV 85 01/17/2024 PLT 99 (L) 01/17/2024 Lab Results Component Value Date GLU 102 (H) 01/17/2024 CALCIUM 8.8 01/17/2024 K 3.3 (L) 01/17/2024 CO2 25 01/17/2024 BUN 17 01/17/2024 CREATININE 0.95 01/17/2024 No results found for: VITD25 Lab Results Component Value Date INR 1.0 01/17/2024 INR 1.1 01/17/2024 INR 1.0 10/13/2021 PROTIME 12.2 01/17/2024 PROTIME 12.5 01/17/2024 PROTIME 12.0 10/13/2021 DIAGNOSIS: 1) Ruth Smith is a 53 y.o. male with right intertrochanteric hip fracture ASSESSMENT/PLAN: - Patient d/w Dr. Figueroa. - Patient to remain NWB right lower extremity at all times. - Ice and elevation of affected extremity at all times. - N/V checks - per protocol - Pain control - per primary - DVT Prophylaxis - per primary - NPO midnight. Plan for operative stabilization 01/18/2024 pending medical clearance - Attending to see Please contact ortho hot pager for any questions/concerns [phone] LUIS MCCARTHY PA-C 01/17/24 7222 I, ANG FIGUEROA MD, personally performed the face to face diagnostic evaluation on this patient. My findings are as follows: Patient seen evaluated in the emergency department. He was transferred from [place] for orthopedic care to [place]. He had a mechanical fall resulting in a right hip injury. He has multitude of comorbidities including diabetes hypertension history of cancer. I discussed with him his injury and the plan for surgical intervention. We are tentatively planning for this tomorrow with Dr. Lanza for operative stabilization of his hip. Discussed with the standard risks benefits alternatives. We will plan for surgery tomorrow. Complete medical workup and optimization for the medical standpoint. Ang Figueroa MD. [facility] [place] Progress note* PT/OT/THERMAL SURFACING MACHINE OPERATOR - MALATHI Meneses/Lanie - 01/20/2024 10:11 AM EDT Occupational Therapy Treatment (BID) Discharge Recommendations OT Recommendations : Inpatient Rehab Inpatient Rehab Criteria: All inpatient rehab criteria expected to be met (Pt would benefit from IPR stay to increase strength, endurance, and independence with self-care. Pt currently requires 2 person assistance to get out of bed and for all mobility.) 6 Clicks: Daily Activity Putting on and taking off regular lower body clothing?: A lot Bathing (including washing, rinsing, drying)?: A lot Toileting, which includes using toilet, bedpan or urinal?: Total (palacios) Putting on and taking off regular upper body clothing?: A little Taking care of personal grooming such as brushing teeth?: A little Eating meals?: None Scoring Daily Activity Raw Score: 15 CMS G Code Modifier: CK OT Treatment/Interventions: ADL retraining, Functional transfer training, UE strengthening/ROM, LE strengthening/ROM, Endurance training, Patient/family training, Equipment eval/education, Balance, Bed mobility, Compensatory technique education, Functional activities OT Frequency: Twice a Day OT Duration: Until discharge Assessment Patient Assessment Therapy Problem List: Decreased ADL status, Decreased balance, Decreased endurance, Decreased high-level ADLs, Decreased mobility, Decreased safe judgement during ADL, Decreased self-care trans, Decreased UE strength, Decreased LE strength Patient Response to Treatment: Slow progress, decreased activity tolerance Mood/Affect: Appropriate for circumstances Rehab Prognosis: Good, With continued OT status post acute discharge Visit RN Communication: Yes Medical Record Reviewed: Yes OT Type of Visit: Treatment (BID) Precautions Activity: mobilize with assistance, okay for RT LE ROM as tolerated; ok to see per RN Equipment: gait belt, RW, palacios Weight Bearing Status: WBAT Rt LE Oxygen Used: room air Other: fall risk Pain Assessment Pain Assessment: 0-10 Pain Score: 8 Pain Type: Surgical pain Pain Location: Hip, Back, Leg Pain Orientation: Right, Lower Pain Intervention(s): Cold applied, Repositioned, Ambulation/increased activity Response to Interventions: Quiet, No grimacing ADL / IADL Hand Dominance: Right Where Assessed: Standing at sink Grooming Assistance: Contact guard assist Grooming Deficit: Steadying, Supervision/safety, Wash/dry hands, Wash/dry face, Oral hygiene Footwear Assistance: Standby assist Footwear Deficit: L sock Other: Pt utilized figure 4 tech to don L sock seated on EOB. Pt stood at sink to complete groomingtasks with CGA. Home Management - IADL Other: Pt utilized figure 4 tech to don L sock seated on EOB. Pt stood at sink to complete groomingtasks with CGA. Hearing / Speech / Vision Hearing: Within Functional Limits Speech: Within Functional Limits Cognition Attention Span: Attends with cues to redirect Orientation Level: Oriented X4 Following Commands: Follows one step commands with repetition Safety Judgment: Decreased awareness of need for safety Awareness of Errors: Assistance required to identify errors made Bed Mobility Supine to Sit: Mod assist (x2) Other: HOB elevated, cues for sequencing and tech. Utilized gait belt to act as leg repairer controller tester; instructed pt to lift R leg to EOB with cues for tech. Pt required A to progress trunk/hips. Pt instructed with cues for sequencing and emonstration to scoot hips out to EOB with R leg kicked out with pt unable to progress. Pt in chair at end of session with call light within reach, ice aplied to R hip, RN aware. Transfers Sit to Stand: Max assist (x2) Stand to Sit: Max assist (x2) Other: Pt attempted STS x2. Pt required increased cues for proper hand placement and body mechanics. Pt instructed in rocking forward technique for momentum with poor carryover. Pt unsucessful on first attempt, able to come to full stand on 2nd attempt with increased time/effort and increased time to bring B hands to walker. Gait Gait Assistance: Min assist (x2) Assistive Device: Rolling walker Gait Distance: 15' x2 Limiting Factors to Gait: Fatigue, Weakness, Pain Other: Pt performed functional mobility with min A x2 for safety. Increased cues for proper body mechanics. BUE support on RW. Balance Sitting Balance: Static: Good Sitting Balance: Dynamic: Fair (+) Standing Balance: Static: Fair Standing Balance: Dynamic: Fair (-) Other: Pt sat unsupported on EOB for improved sitting balance/trunk control ~ 7 mins. BUE support on RW for transfers/functional mobility. Pt unsteady, however no LOB noted. Activity Tolerance Endurance: Tolerates 30 minutes activity with rest breaks Other: Pt required increased time/effort for all tasks. Pt plans to go home vs. IPR; education on role of therapy, benefits of IPR, discussion of home setup with education on strong recommendation for pt to go to IPR as he currently is unsafe to go home. Plan Occupational Therapy Care Plan Occupational Therapy Care Plan (Active) Template: OT - Occupational Therapy Problem: Activity Tolerance Dates: Start: 01/19/24 Disciplines: OT Goal: Tolerate > 30 minutes of activity WITHOUT rest breaks Dates: Start: 01/19/24 Expected End: 02/09/24 Description: Goal Description: Disciplines: OT Outcomes Date/Time User Outcome 01/20/24 0945 NALLELY Meneses Progressing 01/19/24 1531 NALLELY Hernandez Progressing Problem: Bed Mobility Dates: Start: 01/19/24 Disciplines: OT Goal: Patient will perform bed mobility with Modified [place] Dates: Start: 01/19/24 Expected End: 02/09/24 Description: Goal Description: Disciplines: OT Outcomes Date/Time User Outcome 01/20/24 0945 Katlin Goins SERVIN/L Progressing 01/19/24 1531 CHARU HernandezA/Lanie Progressing Problem: Functional Mobility Dates: Start: 01/19/24 Disciplines: OT Goal: Patient will perform functional mobility with Modified [place] Dates: Start: 01/19/24 Expected End: 02/09/24 Description: Goal Description: Disciplines: OT Outcomes Date/Time User Outcome 01/20/24 0945 Katlin Goins SERVIN/L Progressing 01/19/24 1531 CHARU HernandezA/Lanie Progressing Problem: Other (Customize) Dates: Start: 01/19/24 Disciplines: OT Goal: Improve Dates: Start: 01/19/24 Expected End: 02/09/24 Description: Goal Description: Complete ADLs [place] with AE/DME Disciplines: OT Outcomes Date/Time User Outcome 01/20/24 09Elpidio Goins SERVIN/L Progressing Problem: Sitting Balance Dates: Start: 01/19/24 Disciplines: OT Goal: Improve balance to good Dates: Start: 01/19/24 Expected End: 02/09/24 Description: Static Dynamic Disciplines: OT Outcomes Date/Time User Outcome 01/20/24 09Elpidio Goins SERVIN/L Progressing 01/19/24 1531 CHARU HernandezA/Lanie Progressing Problem: Standing Balance Dates: Start: 01/19/24 Disciplines: OT Goal: Improve balance to good Dates: Start: 01/19/24 Expected End: 02/09/24 Description: Static Dynamic Disciplines: OT Outcomes Date/Time User Outcome 01/20/24 0945 Katlin Goins SERVIN/L Progressing 01/19/24 1531 CHARU HernandezA/Lanie Progressing Problem: Strength Dates: Start: 01/19/24 Disciplines: OT Goal: Improve strength Dates: Start: 01/19/24 Expected End: 02/09/24 Description: Of extremity/ location: Tolerate bilat UE exercises to increase strength and endurancefor self care tasks. To facilitate: Disciplines: OT Outcomes Date/Time User Outcome 01/19/24 1531 NALLELY Hernandez Progressing Problem: Transfers Dates: Start: 01/19/24 Disciplines: OT Goal: Patient will perform transfers with Modified [place] Dates: Start: 01/19/24 Expected End: 02/09/24 Description: Goal Description: Disciplines: OT Outcomes Date/Time User Outcome 01/20/24 0945 MALATHI Meneses/Lanie Progressing 01/19/24 1531 NALLELY Hernandez Progressing Occupational Therapy Care Plan (Resolved) There are no resolved problems. Principal Problem: Closed fracture of right hip, initial encounter ([facility]) Active Problems: Closed displaced intertrochanteric fracture of right femur ([facility]) Associated attestation - Virgil Nunes OTR/L - 01/20/2024 1:17 PM EDT I have reviewed and agree with this note and education documentation for this visit. [facility] [place]06[facility] Progress note* PT/OT/THERMAL SURFACING MACHINE OPERATOR - Shahrzad Garcias PTA - 01/20/2024 8:17 AM EDT Physical Therapy Treatment Discharge Recommendations PT Recommendations: Inpatient Rehab Inpatient Rehab Criteria: All inpatient rehab criteria expected to be met (Pt would benefit from IPR stay to increased strength, safety, balance, and endurance, and overall functional mobility prior to safe D/C home. Pt currently requires 2 person assistance for bed mobility and transfers.) 6 Clicks: Basic Mobility Turning from your back to your side while in a flat bed without using bed rails?: A lot Moving from lying on your back to sitting on side of flat bed without using bed rails?: A lot Moving to and from bed to a chair (including w/c)?: A lot Standing up from a chair using your arms (e.g. w/c or bedside chair)?: A lot To walk in hospital room?: A lot Climbing 3-5 steps with a railing?: Total Scoring 6 Clicks: Basic Mobility Raw Score: 11 [facility] G Code Modifier: CL Therapy Plan PT Treatment/Interventions: Functional transfer training, LE strengthening/ROM, Endurance training,Patient/family training, Equipment eval/education, Balance, Bed mobility, Gait training, Functionalactivities PT Frequency: Twice a Day PT Duration: LOS. Patient Response to Treatment: Slow progress, decreased activity tolerance Assessment Patient Assessment Therapy Problem List: Decreased ADL status, Decreased balance, Decreased endurance, Decreased high-level ADLs, Decreased mobility, Decreased safe judgement during ADL, Decreased self-care trans, Decreased UE strength, Decreased LE strength Patient Response to Treatment: Slow progress, decreased activity tolerance Mood/Affect: Appropriate for circumstances Rehab Prognosis: Good, With continued PT status post acute discharge Visit RN Communication: Yes Medical Record Reviewed: Yes PT Type of Visit: Treatment Precautions Activity: mobilize with assistance, okay for RT LE ROM as tolerated; ok to see per RN Equipment: gait belt, RW, palacios Weight Bearing Status: WBAT Rt LE Oxygen Used: room air Other: fall risk Pain Assessment Pain Assessment: 0-10 Pain Score: 8 Pain Type: Surgical pain Pain Location: Hip, Back, Leg Pain Orientation: Right, Lower Pain Intervention(s): Cold applied, Repositioned, Ambulation/increased activity Response to Interventions: Quiet, No grimacing Hearing / Speech / Vision Hearing: Within Functional Limits Speech: Within Functional Limits Cognition Attention Span: Attends with cues to redirect Orientation Level: Oriented X4 Following Commands: Follows one step commands with repetition Safety Judgment: Decreased awareness of need for safety Awareness of Errors: Assistance required to identify errors made Other: Pt required increased time to complete functional mobility tasks for education on safety, fall risk and prevention, safety following D/C, recommendations, and current mobility level Bed Mobility Supine to Sit: Mod assist (x2) Other: Pt completed bed mobility with MOD A x2 for trunk and BLE support. Education provided on sequeincing of bed mobility and use of bed railing for UE support. Pt required HOB to be elevated slightly to complete. Much increased time and effort to sit EOB. Use of gait belt as limb repairer controller tester for RLE with fair- poor carryover. Pt displayed decreased ability to scoot hips to EOB d/t pain in R hip and required assistance from com writer to complete. Pt denied dizziness with positonal change. Pt sitting in recliner at end of tx session with call light in reach, ice applie to R hip, and RN present withinthe room. Transfers Sit to Stand: Max assist (x2) Stand to Sit: Max assist (x2) Other: Pt attempted initial stand with use of RW for BUE support and attempted tp pull from RW handles to complete. First attempt was unsuccessful. Single Stayer Operator educated pt on use of momentum and safe handplacement/transition to RW, as well as BLE placement to imrpove technique. Pt then was able to achieve with MAX A x2. Increased time and effort noted to complete. Assist required to control descent when sitting. Gait Base of Support: Wide Pattern: Decreased jesusita, Antalgic gait, R Decreased heel strike, L Decreased heel strike, R Decreased foot clearance, L Decreased foot clearance, Forward trunk, R Decreased stance time, R Flexed knee (dec step height/length) Gait Assistance: Min assist (x2) Assistive Device: Rolling walker Gait Distance: 15' x2 Limiting Factors to Gait: Fatigue, Weakness, Pain Other: Pt completed ambulation within the room with MIN A x2 for safety and use of RW for BUE support. Education provided on sequencing of gait pattern with RW to improve technique. Unsteadiness present, however no overt LOB. Education provided on R TKE to reduce buckling during SLS. Balance Sitting Balance: Static: Good Sitting Balance: Dynamic: Fair (+) Standing Balance: Static: Fair Standing Balance: Dynamic: Fair (-) Other: Pt required BUE support in standing for stability. No overt LOB noted this session, however mild unsteadiness present d/t R knee buckling. Pt stood at the sink with intermittent single UE support without LOB. Pt sat unsupported in the recliner at at EOB with intermittent UE supprt for stability. Slight L lateral trunk lean present. Activity Tolerance Endurance: Tolerates 30 minutes activity with rest breaks Other: Pt required intermittent rest breaks secondary to fatigue, weakness, and decreased endurance. Inc time for education on fall risk and prevention following D/C. Pt is greatly limited by pain and decreased endurance at this time. Plan Physical Therapy Care Plan Physical Therapy Care Plan (Active) Template: PT - Physical Therapy Problem: Activity Tolerance Dates: Start: 01/19/24 Disciplines: PT Goal: Tolerate > 30 minutes of activity WITH rest breaks Dates: Start: 01/19/24 Expected End: 02/02/24 Description: Goal Description: Disciplines: PT Outcomes Date/Time User Outcome 01/20/24 1036 Shahrzad Garcias PTA Progressing 01/19/24 1721 Shahrzad Garcias PTA Progressing Goal Note filed on 01/20/24 1036 by Shahrzad Garcias PTA Evaluation of progress towards goal: Problem: Bed Mobility Dates: Start: 01/19/24 Disciplines: PT Goal: Patient will perform bed mobility with Minimum Assist Dates: Start: 01/19/24 Expected End: 02/02/24 Description: Goal Description: Disciplines: PT Outcomes Date/Time User Outcome 01/20/24 1036 Shahrzad Garcias PTA Progressing 01/19/24 1721 Shahrzad Garcias PTA Progressing Goal Note filed on 01/20/24 1036 by Shahrzad Garcias PTA Evaluation of progress towards goal: Problem: Gait Dates: Start: 01/19/24 Disciplines: PT Goal: Patient will perform gait with Contact Guard Dates: Start: 01/19/24 Expected End: 02/02/24 Description: With_rw___,__150__feet Goal Description: Disciplines: PT Outcomes Date/Time User Outcome 01/20/24 1036 Shahrzad Garcias PTA Progressing 01/19/24 1721 Shahrzad Garcias PTA Progressing Goal Note filed on 01/20/24 1036 by Shahrzad Garcias PTA Evaluation of progress towards goal: Problem: Standing Balance Dates: Start: 01/19/24 Disciplines: PT Goal: Improve balance to good Dates: Start: 01/19/24 Expected End: 02/02/24 Description: Static Dynamic- good (-) with support of rw Disciplines: PT Outcomes Date/Time User Outcome 01/20/24 1036 Shahrzad Garcias PTA Progressing 01/19/24 1721 Shahrzad Garcias PTA Progressing Goal Note filed on 01/20/24 1036 by Shahrzad Garcias PTA Evaluation of progress towards goal: Problem: Strength Dates: Start: 01/19/24 Disciplines: PT Goal: Improve strength Dates: Start: 01/19/24 Expected End: 02/02/24 Description: Of extremity/ location:Complete 20 reps bilat UE/LE ex's To facilitate: Disciplines: PT Outcomes Date/Time User Outcome 01/20/24 103 Shahrzad Garcias PTA Progressing 01/19/24 1721 Shahrzad Garcias PTA Progressing Goal Note filed on 01/20/24 1036 by Shahzrad Garcias PTA Evaluation of progress towards goal: Problem: Transfers Dates: Start: 01/19/24 Disciplines: PT Goal: Patient will perform transfers with Contact Guard Dates: Start: 01/19/24 Expected End: 02/02/24 Description: Goal Description: Disciplines: PT Outcomes Date/Time User Outcome 01/20/24 1036 Shahrzad Garcias PTA Progressing 01/19/24 1721 Shahrzad Garcias PTA Progressing Goal Note filed on 01/20/24 1036 by Shahrzad Garcias PTA Evaluation of progress towards goal: Physical Therapy Care Plan (Resolved) There are no resolved problems. Principal Problem: Closed fracture of right hip, initial encounter ([facility]) Active Problems: Closed displaced intertrochanteric fracture of right femur ([facility]) Associated attestation - Brady Jauregui PT - 01/20/2024 3:30 PM EDT I have reviewed and agree with this note and education documentation for this visit. [facility]06-07-2024 Progress note* Discharge Planning Note - Jackie Caal - 01/19/2024 3:48 PM EDT DISCHARGE PLANNING NOTE Referral to [address] (P# ; F# ); [place] (P#[phone] ; F# [phone]) and [facility] ([place]- P# ; F# ) ([place], [place] P# ; F#) [facility]06-07-2024 Progress note* PT/OT/THERMAL SURFACING MACHINE OPERATOR - NALLELY Hernandez - 01/19/2024 3:32 PM EDT Occupational Therapy Treatment (BID) Discharge Recommendations OT Recommendations : Inpatient Rehab 6 Clicks: Daily Activity Putting on and taking off regular lower body clothing?: A lot Bathing (including washing, rinsing, drying)?: A lot Toileting, which includes using toilet, bedpan or urinal?: Total (palacios) Putting on and taking off regular upper body clothing?: A little Taking care of personal grooming such as brushing teeth?: A little Eating meals?: None Scoring Daily Activity Raw Score: 15 CMS G Code Modifier: CK OT Treatment/Interventions: ADL retraining, Functional transfer training, UE strengthening/ROM, LE strengthening/ROM, Endurance training, Patient/family training, Equipment eval/education, Balance, Bed mobility, Compensatory technique education, Functional activities OT Frequency: Twice a Day OT Duration: Until discharge Assessment Patient Assessment Therapy Problem List: Decreased ADL status, Decreased balance, Decreased endurance, Decreased high-level ADLs, Decreased mobility, Decreased safe judgement during ADL, Decreased self-care trans, Decreased UE strength, Decreased LE strength Patient Response to Treatment: Slow progress, decreased activity tolerance Mood/Affect: Appropriate for circumstances Rehab Prognosis: Good, With continued OT status post acute discharge Visit RN Communication: Yes Medical Record Reviewed: Yes OT Type of Visit: Treatment (BID) Precautions Activity: mobilize with assistance, okay for RT LE ROM as tolerated Equipment: gait belt, RW, palacios Weight Bearing Status: WBAT Rt LE Other: fall risk Pain Assessment Pain Assessment: 0-10 Pain Score: 9 Pain Type: Surgical pain Pain Location: Hip Pain Orientation: Right Pain Intervention(s): Cold applied, Repositioned, Ambulation/increased activity Response to Interventions: Pain unchanged ADL / IADL Other: NT with PM session. pt stated he completed tasks earlier in the day with nursing staff. Home Management - IADL Other: NT with PM session. pt stated he completed tasks earlier in the day with nursing staff. Cognition Orientation Level: Oriented X4 Bed Mobility Supine to Sit: Mod assist (x2) Other: HOB slightly elevated and use of rail required. pt educated on task sequencing and proper body mechanics to help ease I. instructed pt to utilize L LE to assist with R LE advancement during task. poor return noted. pt left in the chair at end of session with call light within reach and with RN aware. Transfers Sit to Stand: Min assist (x2) Stand to Sit: Min assist (x2) Other: min A x2 required for all transfers. cues provided for proper tech and safe hand placement. increased time and effort required to complete transition. no LOB noted upon standing. Gait Gait Assistance: Min assist (x2) Assistive Device: Rolling walker Gait Distance: 3ft + 5ft Limiting Factors to Gait: Fatigue, Weakness, Pain Other: min A x2 required for safety and stability. cues provided for sequencing and proper body mechanics to assist with decreasing R knee buckling. increased time and effort required to complete. ptunsteady, however no major LOB noted. Balance Sitting Balance: Static: Good Sitting Balance: Dynamic: Fair (+) Standing Balance: Static: Fair Standing Balance: Dynamic: Fair (-) Other: pt requires B UE support from RW with functional mobility and with min A x2 required. no major LOB demo during session. Activity Tolerance Endurance: Tolerates 30 minutes activity with rest breaks Other: fair overall tolerance. pt is limited by weakness, fatigue, pain, and decreased activity tolerance. 01/19/24 1437 UE ROM UE ROM exercises performed? Yes Scapular retraction x Shoulder flexion/extension x Shoulder horizontal abduction/adduction x Other B UE AROM Repetitions x10 Plan Occupational Therapy Care Plan Occupational Therapy Care Plan (Active) Template: OT - Occupational Therapy Problem: Activity Tolerance Dates: Start: 01/19/24 Disciplines: OT Goal: Tolerate > 30 minutes of activity WITHOUT rest breaks Dates: Start: 01/19/24 Expected End: 02/09/24 Description: Goal Description: Disciplines: OT Outcomes Date/Time User Outcome 01/19/24 1531 NALLELY Hernandez Progressing Problem: Bed Mobility Dates: Start: 01/19/24 Disciplines: OT Goal: Patient will perform bed mobility with Modified [place] Dates: Start: 01/19/24 Expected End: 02/09/24 Description: Goal Description: Disciplines: OT Outcomes Date/Time User Outcome 01/19/24 1531 NALLELY Hernandez Progressing Problem: Functional Mobility Dates: Start: 01/19/24 Disciplines: OT Goal: Patient will perform functional mobility with Modified [place] Dates: Start: 01/19/24 Expected End: 02/09/24 Description: Goal Description: Disciplines: OT Outcomes Date/Time User Outcome 01/19/24 1531 NanoMALATHI Banks/Lanie Progressing Problem: Other (Customize) Dates: Start: 01/19/24 Disciplines: OT Goal: Improve Dates: Start: 01/19/24 Expected End: 02/09/24 Description: Goal Description: Complete ADLs [place] with AE/DME Disciplines: OT Problem: Sitting Balance Dates: Start: 01/19/24 Disciplines: OT Goal: Improve balance to good Dates: Start: 01/19/24 Expected End: 02/09/24 Description: Static Dynamic Disciplines: OT Outcomes Date/Time User Outcome 01/19/24 153Yohana Mcgill MALATHI Maher/Lanie Progressing Problem: Standing Balance Dates: Start: 01/19/24 Disciplines: OT Goal: Improve balance to good Dates: Start: 01/19/24 Expected End: 02/09/24 Description: Static Dynamic Disciplines: OT Outcomes Date/Time User Outcome 01/19/24 153Yohana VillanuevaMALATHI Banks/Lanie Progressing Problem: Strength Dates: Start: 01/19/24 Disciplines: OT Goal: Improve strength Dates: Start: 01/19/24 Expected End: 02/09/24 Description: Of extremity/ location: Tolerate bilat UE exercises to increase strength and endurancefor self care tasks. To facilitate: Disciplines: OT Outcomes Date/Time User Outcome 01/19/24 153Yohana NALLELY Hernandez Progressing Problem: Transfers Dates: Start: 01/19/24 Disciplines: OT Goal: Patient will perform transfers with Modified [place] Dates: Start: 01/19/24 Expected End: 02/09/24 Description: Goal Description: Disciplines: OT Outcomes Date/Time User Outcome 01/19/24 Shahnaz NALLELY Hernandez Progressing Occupational Therapy Care Plan (Resolved) There are no resolved problems. Principal Problem: Closed fracture of right hip, initial encounter ([facility]) Active Problems: Closed displaced intertrochanteric fracture of right femur ([facility]) Associated attestation - Virgil Nunes OTR/L - 01/20/2024 1:17 PM EDT I have reviewed and agree with this note and education documentation for this visit. [facility]06-07-2024 Progress note* Discharge Planning Note - JEWEL Crenshaw - 01/19/2024 3:04 PM EDT DISCHARGE PLANNING NOTE DC plan will be home with home care, PT/OT rec IPR. SW discussed with pt and reviewed options for IP rehab. Pt refusing rehab, pt wants to go home, pt feels he does not need to be in a facility, he has family and friends that can assist him as needed. Pt would like home care arranged. Referral's were placed to [address] (1st choice) & [facility], await acceptance. - JEWEL Crenshaw 01/19/24 3:08 PM [facility]06-07-2024 Progress note* PT/OT/THERMAL SURFACING MACHINE OPERATOR - Shahrzad Garcias PTA - 01/19/2024 1:55 PM EDT Physical Therapy Treatment (BID) Discharge Recommendations PT Recommendations: Inpatient Rehab 6 Clicks: Basic Mobility Turning from your back to your side while in a flat bed without using bed rails?: A lot Moving from lying on your back to sitting on side of flat bed without using bed rails?: A lot Moving to and from bed to a chair (including w/c)?: A lot Standing up from a chair using your arms (e.g. w/c or bedside chair)?: A lot To walk in hospital room?: A lot Climbing 3-5 steps with a railing?: Total Scoring 6 Clicks: Basic Mobility Raw Score: 11 [facility] G Code Modifier: CL Therapy Plan PT Treatment/Interventions: Functional transfer training, LE strengthening/ROM, Endurance training,Patient/family training, Equipment eval/education, Balance, Bed mobility, Gait training, Functionalactivities PT Frequency: Twice a Day PT Duration: LOS. Patient Response to Treatment: Slow progress, decreased activity tolerance Assessment Patient Assessment Therapy Problem List: Decreased ADL status, Decreased balance, Decreased endurance, Decreased high-level ADLs, Decreased mobility, Decreased safe judgement during ADL, Decreased self-care trans, Decreased UE strength, Decreased LE strength Patient Response to Treatment: Slow progress, decreased activity tolerance Mood/Affect: Appropriate for circumstances Rehab Prognosis: Good, With continued PT status post acute discharge Visit RN Communication: Yes Medical Record Reviewed: Yes PT Type of Visit: Treatment (BID) Precautions Activity: ok to tx per RN- mobilize with assistance, okay for RT LE ROM as tolerated Equipment: gait belt, RW, palacios Weight Bearing Status: WBAT Rt LE Oxygen Used: room air Other: fall risk Pain Assessment Pain Assessment: 0-10 Pain Score: 9 Pain Type: Surgical pain Pain Location: Hip Pain Orientation: Right Pain Intervention(s): Cold applied, Repositioned, Ambulation/increased activity Response to Interventions: Quiet, No grimacing Cognition Overall Cognitive Status: Exceptions to Within Functional Limits Attention Span: Attends with cues to redirect Orientation Level: Oriented X4 Following Commands: Follows one step commands with repetition Safety Judgment: Decreased awareness of need for safety Awareness of Errors: Assistance required to identify errors made Bed Mobility Supine to Sit: Mod assist (x2) Other: Pt completed bed mobility with HOB elevated and use of bed railing for UE support. MAX cueing provided for sequenicng and technique to transition. Pt had difficutly following direction/cueing from com writer. Visual demo and tactile cueing provided to improve carryover. Cued pt in use of LLE to support RLE for advacing limb OOB- difficulty noted> MOD A x2 required for trunk and BLE support OOB. Pt denied dizziness with positional change. Pt sitting in recliner at end of tx session with call light in reach, all needs met, RN aware. Educated pt on use of call light for assistance instead of attempting to get up on his own at this time. Transfers Sit to Stand: Min assist (x2) Stand to Sit: Min assist (x2) Other: Pt required MIN A x2 for trunk support and safety during transfers. Pt displayed mild posterior trunk lean with cueing to shift weight forward to correct. Increased time and effort to complete. Pt attempted to pull from RW handles initially- required cueing for safe hand placement and transition to reduce fall risk. Gait Base of Support: Wide Pattern: Decreased jesusita, Antalgic gait, R Decreased heel strike, L Decreased heel strike, R Decreased foot clearance, L Decreased foot clearance, Forward trunk, R Decreased stance time, R Flexed knee Gait Assistance: Min assist (x2) Assistive Device: Rolling walker Gait Distance: 3', 5' (chair follow for safety) Limiting Factors to Gait: Fatigue, Weakness, Pain Other: Pt completed 2x short bouts of ambulation within room with MIN A x2 for safety and use of RWfor BUE support. Education provided on gait sequenicng with visual demo for improving carryover. Ptdisplayed R knee buckling during stance phase- educated pt on R TKE during SLS to reduce buckling with fair return. Pt displayed unsteadiness during ambulation attempts requiring chair follow for safety, however no overt LOB this PM. 01/19/24 1355 LE Seated LE seated exercises performed? Yes Ankle pumps x Long arc quads x Seated marching x Other Glute sets, VVT cues for technique and sequencing. AAROM as needed for RLE Repetitions 15x Balance Sitting Balance: Static: Good Sitting Balance: Dynamic: Fair (+) Standing Balance: Static: Fair Standing Balance: Dynamic: Fair (-) Other: Pt required BUE support on RW handles in standing. Minor Posterior LOB upon sitting EOB withMIN A to correct. Education provided on scooting forward to allow BLEs to rest on the floor for incstability. Activity Tolerance Endurance: Tolerates 30 minutes activity with rest breaks Other: Rest breaks provided intermittently during tx session secondary to fatigue, weakness, and decreased endurance. Pt required inc time to complete all therapy tasks. Plan Physical Therapy Care Plan Physical Therapy Care Plan (Active) Template: PT - Physical Therapy Problem: Activity Tolerance Dates: Start: 01/19/24 Disciplines: PT Goal: Tolerate > 30 minutes of activity WITH rest breaks Dates: Start: 01/19/24 Expected End: 02/02/24 Description: Goal Description: Disciplines: PT Outcomes Date/Time User Outcome 01/19/241720 Shahrzad Garcias PTA Progressing Goal Note filed on 01/19/241720 by Shahrzad Garcias PTA Evaluation of progress towards goal: Problem: Bed Mobility Dates: Start: 01/19/24 Disciplines: PT Goal: Patient will perform bed mobility with Minimum Assist Dates: Start: 01/19/24 Expected End: 02/02/24 Description: Goal Description: Disciplines: PT Outcomes Date/Time User Outcome 01/19/241720 Shahrzad Garcias PTA Progressing Goal Note filed on 01/19/241720 by Shahrzad Garcias PTA Evaluation of progress towards goal: Problem: Gait Dates: Start: 01/19/24 Disciplines: PT Goal: Patient will perform gait with Contact Guard Dates: Start: 01/19/24 Expected End: 02/02/24 Description: With_rw___,__150__feet Goal Description: Disciplines: PT Outcomes Date/Time User Outcome 01/19/241720 Shahrzad Garcias PTA Progressing Goal Note filed on 01/19/241720 by Shahrzad Garcias PTA Evaluation of progress towards goal: Problem: Standing Balance Dates: Start: 01/19/24 Disciplines: PT Goal: Improve balance to good Dates: Start: 01/19/24 Expected End: 02/02/24 Description: Static Dynamic- good (-) with support of rw Disciplines: PT Outcomes Date/Time User Outcome 01/19/241720 Shahrzad Garcias PTA Progressing Goal Note filed on 01/19/241720 by Shahrzad Garcias PTA Evaluation of progress towards goal: Problem: Strength Dates: Start: 01/19/24 Disciplines: PT Goal: Improve strength Dates: Start: 01/19/24 Expected End: 02/02/24 Description: Of extremity/ location:Complete 20 reps bilat UE/LE ex's To facilitate: Disciplines: PT Outcomes Date/Time User Outcome 01/19/241720 Shahrzad Garcias PTA Progressing Goal Note filed on 01/19/241720 by Shahrzad Garcias PTA Evaluation of progress towards goal: Problem: Transfers Dates: Start: 01/19/24 Disciplines: PT Goal: Patient will perform transfers with Contact Guard Dates: Start: 01/19/24 Expected End: 02/02/24 Description: Goal Description: Disciplines: PT Outcomes Date/Time User Outcome 01/19/241720 Shahrzad Garcias PTA Progressing Goal Note filed on 01/19/241720 by Shahrzad Garcias PTA Evaluation of progress towards goal: Physical Therapy Care Plan (Resolved) There are no resolved problems. Principal Problem: Closed fracture of right hip, initial encounter ([facility]) Active Problems: Closed displaced intertrochanteric fracture of right femur ([facility]) Associated attestation - Brady Jauregui, PT - 01/20/2024 3:30 PM EDT I have reviewed and agree with this note and education documentation for this visit. [employer] [phone] Progress note* PT/OT/THERMAL SURFACING MACHINE OPERATOR - Lindsay Infante, PT - 01/19/2024 1:52 PM EDT Physical Therapy Evaluation Discharge Recommendations PT Recommendations: Inpatient Rehab Inpatient Rehab Criteria: All inpatient rehab criteria expected to be met Therapy Plan Need for skilled Physical Therapy to address deficits in functional mobility due to a status decline resulting from hospitalization. Pt to [facility] via EMS with Rt LE pain. Pt reported that he had tripped over a dog and landed on Rt knee. Pt found to have a Rt IT nondisplaced fx 01/17 pt underwent IM nailing Rt IT hip fx Pt is WBAT Rt LE. ROM as nabil. Chief Complaint Patient presents with Hip Injury Past Medical History: Diagnosis Date Asthma Back pain Chronic cough from lisinopril Chronic pain disorder Colon cancer ([facility]) COPD (chronic obstructive pulmonary disease) ([facility]) Depression Diabetes mellitus type 2, controlled ([facility]) Fibromyalgia, primary Fracture of right hip, closed, initial encounter ([facility]) 01/17/2024 GERD (gastroesophageal reflux disease) Hyperlipidemia Hypertension Insulin-treated type 2 diabetes mellitus ([facility]) Joint pain Kidney stones Liver disease Low back pain Neck pain Obesity Osteoarthritis Visual impairment Past Surgical History: Procedure Laterality Date BACK SURGERY COLON SURGERY resection, 2018, [facility] DAVINCI REPAIR HERNIA VENTRAL N/A 10/27/2021 Performed by Ridge Cedillo MD at [facility] DENTAL SURGERY pt had all teeth removed HERNIA REPAIR x's 2 INSERTION INTRAMEDULLARY NAIL FEMUR-TFNA HIP FX Right 01/18/2024 Performed by Ang Figueroa MD at [facility] ORTHOPEDIC SURGERY 2007 foot, infected foot 6 Clicks: Basic Mobility Turning from your back to your side while in a flat bed without using bed rails?: A lot Moving from lying on your back to sitting on side of flat bed without using bed rails?: A lot Moving to and from bed to a chair (including w/c)?: A lot Standing up from a chair using your arms (e.g. w/c or bedside chair)?: A lot To walk in hospital room?: A lot Climbing 3-5 steps with a railing?: Total Scoring 6 Clicks: Basic Mobility Raw Score: 11 CMS G Code Modifier: CL Recommended Consults: PM&R consult PT Treatment/Interventions: Functional transfer training, LE strengthening/ROM, Endurance training,Patient/family training, Equipment eval/education, Balance, Bed mobility, Gait training, Functionalactivities PT Frequency: Twice a Day PT Duration: LOS. Patient Response to Treatment: Tolerated evaluation without adverse reaction Assessment Patient Assessment Therapy Problem List: Decreased ADL status, Decreased balance, Decreased endurance, Decreased high-level ADLs, Decreased mobility, Decreased safe judgement during ADL, Decreased self-care trans, Decreased UE strength, Decreased LE strength Patient Response to Treatment: Tolerated evaluation without adverse reaction Mood/Affect: Appropriate for circumstances Rehab Prognosis: With continued PT status post acute discharge, Good Visit RN Communication: Yes Medical Record Reviewed: Yes PT Type of Visit: Evaluation Precautions Activity: mobilize with assistance, okay for RT LE ROM as tolerated Equipment: gait belt, RW Weight Bearing Status: WBAT Rt LE Other: fall risk Pain Assessment Pain Assessment: 0-10 Pain Score: 9 Pain Type: Surgical pain Pain Location: Hip Pain Orientation: Right Pain Intervention(s): Cold applied, Repositioned, Ambulation/increased activity Response to Interventions: Pain unchanged Home Living Type of Home: Apartment (1st floor) Stairs to Enter: 1 Hand Rails: None Bathroom Shower/Tub: Tub/shower unit Bathroom Toilet: Standard (with support) Bathroom Equipment: Hand-held shower (may have a shower chair) Prior Function Lives With: Alone Receives Help From: (pt states his neighbor could assist some) Level of Mobility: Independent with ADLs and functional transfers or gait Homemaking Assistance: Independent Other: Pt independent without devices prior. Pt trejo snot drive so friends assist with transportation Hearing / Speech / Vision Hearing: Within Functional Limits Speech: Within Functional Limits Cognition Overall Cognitive Status: Within Functional Limits Sensation Overall Sensation Status: Consistent with premorbid status (Pt has neuropathy in bilat feet. He also has C-spine issues that sometimes results in tingling in his hands.) Bed Mobility Supine to Sit: Max assist (x2, HOB up and asist with LE's and at the trunk) Sit to Supine: (NT this session as pt remaine dup in recliner with call light at hand) Transfers Sit to Stand: Mod assist (x 2 with bed extremely elevated, attempted wihtou bed raised and was unsuccessful.) Stand to Sit: Mod assist Other: Provided pt with cues for safe technique and grant dplacement Gait Gait Assistance: Min assist (x2) Assistive Device: Rolling walker Gait Distance: Pt went 3' bed to chair with increased effort. Pt needed cues for gait pattern and sequence. Physical assist provided to manage rw and sometimes to assist advancing RLE initially. Limiting Factors to Gait: Fatigue, Pain Balance Sitting Balance: Static: Good (-) Sitting Balance: Dynamic: Fair (+) Standing Balance: Static: Fair Standing Balance: Dynamic: Fair (-) Other: Standing balance with RW for support RLE Assessment: (Pt not able to overcome gravity at the hip or knee, DF 4-/5) LLE Assessment: (Grossly 4/5) Activity Tolerance Endurance: Tolerates >30 minutes activity with rest breaks Other: Increased time and effort by pt to complete tasks. Plan Physical Therapy Care Plan Physical Therapy Care Plan (Active) Template: PT - Physical Therapy Problem: Activity Tolerance Dates: Start: 01/19/24 Disciplines: PT Goal: Tolerate > 30 minutes of activity WITH rest breaks Dates: Start: 01/19/24 Expected End: 02/02/24 Description: Goal Description: Disciplines: PT Problem: Bed Mobility Dates: Start: 01/19/24 Disciplines: PT Goal: Patient will perform bed mobility with Minimum Assist Dates: Start: 01/19/24 Expected End: 02/02/24 Description: Goal Description: Disciplines: PT Problem: Gait Dates: Start: 01/19/24 Disciplines: PT Goal: Patient will perform gait with Contact Guard Dates: Start: 01/19/24 Expected End: 02/02/24 Description: With_rw___,__150__feet Goal Description: Disciplines: PT Problem: Standing Balance Dates: Start: 01/19/24 Disciplines: PT Goal: Improve balance to good Dates: Start: 01/19/24 Expected End: 02/02/24 Description: Static Dynamic- good (-) with support of rw Disciplines: PT Problem: Strength Dates: Start: 01/19/24 Disciplines: PT Goal: Improve strength Dates: Start: 01/19/24 Expected End: 02/02/24 Description: Of extremity/ location:Complete 20 reps bilat UE/LE ex's To facilitate: Disciplines: PT Problem: Transfers Dates: Start: 01/19/24 Disciplines: PT Goal: Patient will perform transfers with Contact Guard Dates: Start: 01/19/24 Expected End: 02/02/24 Description: Goal Description: Disciplines: PT Physical Therapy Care Plan (Resolved) There are no resolved problems. Principal Problem: Closed fracture of right hip, initial encounter ([facility]) Active Problems: Closed displaced intertrochanteric fracture of right femur ([facility]) [employer] [id number] Progress note* PT/OT/THERMAL SURFACING MACHINE OPERATOR - Thalia Han OTR/Lanie - 01/19/2024 1:03 PM EDT Occupational Therapy Evaluation Discharge Recommendations OT Recommendations : Inpatient Rehab Inpatient Rehab Criteria: All inpatient rehab criteria expected to be met 6 Clicks: Daily Activity Putting on and taking off regular lower body clothing?: A lot Bathing (including washing, rinsing, drying)?: A lot Toileting, which includes using toilet, bedpan or urinal?: A lot Putting on and taking off regular upper body clothing?: A little Taking care of personal grooming such as brushing teeth?: A little Eating meals?: None Scoring Daily Activity Raw Score: 16 CMS G Code Modifier: CK Therapy Plan Need for skilled Occupational Therapy to address deficits in ADL independence and functional mobility due to a status decline resulting from hospitalization. Pt to [facility] via EMS with Rt LE pain. Pt reported that he had tripped over a dog and landed on Rt knee. Pt found to have a Rt IT nondisplaced fx 01/17 pt underwent IM nailing Rt IT hip fx Pt is WBAT Rt LE Scoring Daily Activity Raw Score: 16 CMS G Code Modifier: CK Past Medical History: Diagnosis Date Asthma Back pain Chronic cough from lisinopril Chronic pain disorder Colon cancer ([facility]) COPD (chronic obstructive pulmonary disease) ([facility]) Depression Diabetes mellitus type 2, controlled ([facility]) Fibromyalgia, primary Fracture of right hip, closed, initial encounter ([facility]) 01/17/2024 GERD (gastroesophageal reflux disease) Hyperlipidemia Hypertension Insulin-treated type 2 diabetes mellitus ([facility]) Joint pain Kidney stones Liver disease Low back pain Neck pain Obesity Osteoarthritis Visual impairment Past Surgical History: Procedure Laterality Date BACK SURGERY COLON SURGERY resection, 2018, [facility] REPAIR HERNIA VENTRAL N/A 10/27/2021 Performed by Ridge Cedillo MD at [facility] DENTAL SURGERY pt had all teeth removed HERNIA REPAIR x's 2 INSERTION INTRAMEDULLARY NAIL FEMUR-TFNA HIP FX Right 01/18/2024 Performed by Ang Figueroa MD at [facility] ORTHOPEDIC SURGERY 2007 foot, infected foot Chief Complaint Patient presents with Hip Injury OT Treatment/Interventions: ADL retraining, Functional transfer training, UE strengthening/ROM, LE strengthening/ROM, Endurance training, Patient/family training, Equipment eval/education, Balance, Bed mobility, Compensatory technique education, Functional activities OT Frequency: Twice a Day OT Duration: Until discharge Assessment Patient Assessment Therapy Problem List: Decreased ADL status, Decreased balance, Decreased endurance, Decreased high-level ADLs, Decreased mobility, Decreased safe judgement during ADL, Decreased self-care trans, Decreased UE strength, Decreased LE strength Patient Response to Treatment: Tolerated evaluation without adverse reaction Mood/Affect: Appropriate for circumstances Rehab Prognosis: Good, With continued OT status post acute discharge Visit RN Communication: Yes Medical Record Reviewed: Yes OT Type of Visit: Evaluation Precautions Activity: mobilize with assistance, okay for RT LE ROM as tolerated Equipment: gait belt, RW Weight Bearing Status: WBAT Rt LE Oxygen Used: room air Other: fall risk Pain Assessment Pain Assessment: 0-10 Pain Score: 9 Pain Type: Surgical pain Pain Location: Hip Pain Orientation: Right Pain Intervention(s): Cold applied, Repositioned, Ambulation/increased activity Response to Interventions: Pain unchanged Home Living Type of Home: Apartment (1st floor) Stairs to Enter: 1 Hand Rails: None Stairs in Home: 0 Bathroom Shower/Tub: Tub/shower unit Bathroom Toilet: Standard (with support) Bathroom Equipment: Hand-held shower (may have a shower chair) Other : No AE/DME needs 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 Friends assist as needed ADL / IADL Hand Dominance: Right Where Assessed: Edge of bed, Chair Eating Assistance: Independent Grooming Assistance: Independent Bathing/Showering Assistance: Mod assist Toilet/Commode Assistance: Max assist UE Dressing Assistance: Min assist LE Dressing Assistance: Max assist Footwear Assistance: Total assist Other: Pt limited by weakness, fatigue, pain and decreased balance. Pt requires increased time and effort. Educated on self care/dressing techniques, AE/DME and safety during ADLs. Home Management - IADL Other: Pt limited by weakness, fatigue, pain and decreased balance. Pt requires increased time and effort. Educated on self care/dressing techniques, AE/DME and safety during ADLs. Hearing / Speech / Vision Hearing: Within Functional Limits Speech: Within Functional Limits Cognition Overall Cognitive Status: Within Functional Limits Sensation Overall Sensation Status: Consistent with premorbid status (pt has neuropathy in bilat feet. Pt also has a buldging disc in cspine that leads to numbness and tingling in Lt hand/UE) Bed Mobility Supine to Sit: Max assist (x 2. Assist with trunk and lower body. Increased time, effort and cuing required. HOB elevated and use of bedrail) Sit to Supine: (Pt in chair witgh call light in reach.) Transfers Sit to Stand: Mod assist (x 2 with bed extremely elevated) Stand to Sit: Mod assist Other: Cues for hand placement and technique. Increased time, effort and encouragement required. Gait Gait Assistance: Min assist (x 2) Assistive Device: Rolling walker Gait Distance: 3' bed to chair. Assist for balance and to manuver walker. Cues for sequencing. Limiting Factors to Gait: Fatigue, Pain Balance Sitting Balance: Static: Good (-) Sitting Balance: Dynamic: Fair (+) Standing Balance: Static: Fair Standing Balance: Dynamic: Fair (-) Other: Standing balance with RW for support RUE Assessment: Within Functional Limits LUE Assessment: (shoulder chronic pain. shoulder and elbow 4-/5. Cycle Consultant 3+/5) Activity Tolerance Endurance: Tolerates >30 minutes activity with rest breaks Other: Pt required increased time and effort due to pain Plan Occupational Therapy Care Plan Occupational Therapy Care Plan (Active) Template: OT - Occupational Therapy Problem: Activity Tolerance Dates: Start: 01/19/24 Disciplines: OT Goal: Tolerate > 30 minutes of activity WITHOUT rest breaks Dates: Start: 01/19/24 Expected End: 02/09/24 Description: Goal Description: Disciplines: OT Problem: Bed Mobility Dates: Start: 01/19/24 Disciplines: OT Goal: Patient will perform bed mobility with Modified [place] Dates: Start: 01/19/24 Expected End: 02/09/24 Description: Goal Description: Disciplines: OT Problem: Functional Mobility Dates: Start: 01/19/24 Disciplines: OT Goal: Patient will perform functional mobility with Modified [place] Dates: Start: 01/19/24 Expected End: 02/09/24 Description: Goal Description: Disciplines: OT Problem: Other (Customize) Dates: Start: 01/19/24 Disciplines: OT Goal: Improve Dates: Start: 01/19/24 Expected End: 02/09/24 Description: Goal Description: Complete ADLs [place] with AE/DME Disciplines: OT Problem: Sitting Balance Dates: Start: 01/19/24 Disciplines: OT Goal: Improve balance to good Dates: Start: 01/19/24 Expected End: 02/09/24 Description: Static Dynamic Disciplines: OT Problem: Standing Balance Dates: Start: 01/19/24 Disciplines: OT Goal: Improve balance to good Dates: Start: 01/19/24 Expected End: 02/09/24 Description: Static Dynamic Disciplines: OT Problem: Strength Dates: Start: 01/19/24 Disciplines: OT Goal: Improve strength Dates: Start: 01/19/24 Expected End: 02/09/24 Description: Of extremity/ location: Tolerate bilat UE exercises to increase strength and endurancefor self care tasks. To facilitate: Disciplines: OT Problem: Transfers Dates: Start: 01/19/24 Disciplines: OT Goal: Patient will perform transfers with Modified [place] Dates: Start: 01/19/24 Expected End: 02/09/24 Description: Goal Description: Disciplines: OT Occupational Therapy Care Plan (Resolved) There are no resolved problems. Principal Problem: Closed fracture of right hip, initial encounter ([facility]) Active Problems: Closed displaced intertrochanteric fracture of right femur ([facility]) [facility] [place]06-07-2024 Plan of care note* Plan of Care - Lian Silva RN - 01/19/2024 12:34 PM EDT Problem: Pain Goal: Patient goal is pain score less than 4, able to rest, and participant in treatment plan as appropriate Description: INTERVENTIONS: 1. Encourage patient or legal charter representative to report early pain and ask for pain medicine when needed 2. Assess pain using appropriate pain scale and include the scale used when documenting 3. Administer analgesics based on type and severity of pain and evaluate response within appropriate time frame 4. Implement non-pharmacological measures as appropriate and evaluate response 5. Consider cultural and social influences on pain and pain management 6. Notify LIP if interventions ineffective or patient reports new pain 7. Monitor vital signs including pulse ox 8. Reassess pain per policy 9. Teach patient or legal charter representative interventions for comforting Outcome: Progressing Note: Evaluation of progress towards goal: Verbalizes adequate comfort level. Please see MAR for pain management orders. Problem: Safety Goal: Patient will be injury free during hospitalization Description: INTERVENTIONS: 1. Assess patient's risk for falls and implement fall prevention plan of care per policy 2. Provide and maintain a safe environment 3. Proper use of double Identifiers 4. Medication administration using the 5 rights 5. Hand hygiene 6. Specimens are labeled at the bedside 7. Instruct patient/ patient charter representative about use of safety devices 8. Include patient/ patient charter representative in decisions related to safety Outcome: Progressing Note: Evaluation of progress towards goal: Proper identifiers used with patient care and medicationadministration. Remains free of injury during shift. Problem: Glucose Imbalance Goal: Clinical indication of glucose balance is achieved Description: Patient's goal is: INTERVENTIONS 1. Monitor blood glucose levels as ordered 2. Administer medications as ordered 3. Notify physician of ineffective treatment plan Outcome: Progressing Note: Evaluation of progress towards goal: Lab values monitored per shift; replacements provided asneeded or required. Will continue to monitor electrolyte values. Problem: Moderate - High Risk Fall Score Description: Arredondo Fall Score of =/> 25 or indicated by [facility] Assessment Goal: Patient should be free from fall Description: Interventions: 1. [place] to environment 2. Hourly rounds addressing the 4 P's (Pain, Positioning, Possessions, Potty) 3. Clear area of hazards (spills, clutter, electrical cords, unnecessary equipment) 4. Place equipment (bed & TV controls, call light, phone, urinal) within reach 5. Encourage patient to wear glasses and hearing aides as appropriate 6. Maintain bed in lowest position 7. Lock wheels on bed/wheelchair 8. Provide adequate lighting, including night light 9. Assess need for additional bedding, food/fluids, pain med's prior to sleep/routinely 10. Provide gripper slippers or personal non-skid footwear 11. Teach patient and patient charter representative to maintain environment for safety and engage in all aspects of fall prevention program 12. Remind patient to call for help before getting out of bed 13. Initiate bed/chair/exit alarms supportive devices as appropriate, (chair wedge, no-skid floor mat, raised edge mattress, hip protectors) 14. Locate patient bed assignment for optimal visualization 15. Evaluate and identify Safe Patient Handling Equipment needs 16. Provide supervision when out of bed or chair 17. Utilize gait belt as needed to assist with ambulation 18. Place adaptive equipment (cane, walker) within reach 19. Request patient charter representative bring adaptive equipment/mobility aids from home or obtain and provide as needed 20. Consult pharmacy regarding effects of med's affecting mobility, cognition, and alternatives 21. Obtain physician order for PT if risk factors associated with mobility are present 22. Obtain physician order for OT as appropriate 23. Utilize diversional activities 24. Educate patient and patient charter representative how to maintain a safe environment during visitationtimes (notify nurse prior to leaving bedside) 25. Consider appropriateness of medical or non-medical librarian 26. Set up voiding schedule as appropriate (every 2 hours) Outcome: Progressing Note: Evaluation of progress towards goal: Call light within reach. Remains free of fall or injury.Environment free of clutter. [facility] [id number] Plan of care note* Plan of Care - Carin Contreras RN - 01/18/2024 8:12 PM EDT Problem: Infection Goal: Absence of infection during hospitalization Description: Interventions: 1. Assess and monitor for signs and symptoms of infection 2. Monitor lab/diagnostic results 3. Monitor all insertion sites i.e., indwelling lines, tubes and drains 4. Monitor endotracheal (as able) and nasal secretions for changes in amount and color 5. Administer medications as ordered 6. Instruct and encourage patient and family to use good hand hygiene technique 7. Identify and instruct patient/patient charter representative in use of appropriate isolation precautionsfor identified infection/symptoms 8. Provide and discuss with patient/patient charter representative on educational MDRO sheet 9. Encourage and monitor nutritional status daily and consult maxillofacial pathology if indicated 10. Implement neutropenic guidelines as needed 11. Review exposure to history of communicable disease and recent travel history on admission 12. Encourage annual influenza vaccine 13. Encourage pneumonia vaccine Outcome: Progressing Note: Evaluation of progress towards goal: Patient verbalized understanding that proper handwashingis first line in infection prevention. No S/S of infection at this time. Problem: Moderate - High Risk Fall Score Description: Arredondo Fall Score of =/> 25 or indicated by [facility] Assessment Goal: Patient should be free from fall Description: Interventions: 1. [place] to environment 2. Hourly rounds addressing the 4 P's (Pain, Positioning, Possessions, Potty) 3. Clear area of hazards (spills, clutter, electrical cords, unnecessary equipment) 4. Place equipment (bed & TV controls, call light, phone, urinal) within reach 5. Encourage patient to wear glasses and hearing aides as appropriate 6. Maintain bed in lowest position 7. Lock wheels on bed/wheelchair 8. Provide adequate lighting, including night light 9. Assess need for additional bedding, food/fluids, pain med's prior to sleep/routinely 10. Provide gripper slippers or personal non-skid footwear 11. Teach patient and patient charter representative to maintain environment for safety and engage in all aspects of fall prevention program 12. Remind patient to call for help before getting out of bed 13. Initiate bed/chair/exit alarms supportive devices as appropriate, (chair wedge, no-skid floor mat, raised edge mattress, hip protectors) 14. Locate patient bed assignment for optimal visualization 15. Evaluate and identify Safe Patient Handling Equipment needs 16. Provide supervision when out of bed or chair 17. Utilize gait belt as needed to assist with ambulation 18. Place adaptive equipment (cane, walker) within reach 19. Request patient charter representative bring adaptive equipment/mobility aids from home or obtain and provide as needed 20. Consult pharmacy regarding effects of med's affecting mobility, cognition, and alternatives 21. Obtain physician order for PT if risk factors associated with mobility are present 22. Obtain physician order for OT as appropriate 23. Utilize diversional activities 24. Educate patient and patient charter representative how to maintain a safe environment during visitationtimes (notify nurse prior to leaving bedside) 25. Consider appropriateness of medical or non-medical librarian 26. Set up voiding schedule as appropriate (every 2 hours) Outcome: Progressing Note: Evaluation of progress towards goal: Patient remains fall free at this time, fall precautionsin place. [facility]06-06-2024 Nurse Note* Gurjit Drummond RN - 01/18/2024 3:27 PM EDT Pt here in Rad Holding from Xray. Pt. C/o right hip surgery site pain. 04/23. MALCOLM RN put 2 bags of ice to the surgery site . [facility]06-06-2024 Nurse Note* Gurjit Drummond RN - 01/18/2024 3:27 PM EDT Pt here in Rad Holding from Xray. Pt. C/o right hip surgery site pain. 04/23. MALCOLM RN put 2 bags of ice to the surgery site . * Gin Palm RN - 01/18/2024 7:49 AM EDT Patient arrived in rad holding from XRAY, awaiting transport. Patient denies any needs at this time. [facility] [place] Consult note* AARTI Raoch - 01/18/2024 2:17 PM EDTAssociated Order(s): IP CONSULT TO NUTRITION SERVICES NUTRITION ADULT INITIAL EVALUATION NUTRITION ASSESSMENT: Reason to be seen: Consult for assessment Patient History: Admit Diagnosis: Patient Active Problem List Diagnosis Facial infection Abdominal pain Closed displaced intertrochanteric fracture of right femur ([facility]) Closed fracture of right hip, initial encounter ([facility]) Past Medical History: Past Medical History: Diagnosis Date Asthma Back pain Chronic cough from lisinopril Chronic pain disorder Colon cancer ([facility]) COPD (chronic obstructive pulmonary disease) ([facility]) Depression Diabetes mellitus type 2, controlled ([facility]) Fibromyalgia, primary Fracture of right hip, closed, initial encounter ([facility]) 01/17/2024 GERD (gastroesophageal reflux disease) Hyperlipidemia Hypertension Insulin-treated type 2 diabetes mellitus ([facility]) Joint pain Kidney stones Liver disease Low back pain Neck pain Obesity Osteoarthritis Visual impairment Past Surgical History: Past Surgical History: Procedure Laterality Date BACK SURGERY [facility]2021 Performed by Ridge Cedillo MD at [facility] DENT[facility] SURGERY pt had all teeth removed HERNIA REPAIR x's 2 ORTHOPEDIC SURGERY 2007 foot, infected foot Brief Clinical Summary: Patient initially presented to [facility] d/t right hip pain s/p fall. Transferredto [facility] with right hip fracture. PMHx includes IDDM2, HLD, fibromyalgia, GERD, colon cancer s/p sigmoid colectomy, liver cirrhosis, COPD. Biochemical Data, Medical Tests, and Procedures: 01/17 OR; IM nail right intertrochanteric hip fx Labs: Results from last 3 days Lab Units 01/18/24 0257 01/17/24 0535 SODIUM mmol/L 138 136 POTASSIUM mmol/L 3.9 3.3* CHLORIDE mmol/L 101 101 CO2 mmol/L 28 25 BUN mg/dL 8 17 CREATININE mg/dL 0.70 0.95 CALCIUM mg/dL 9.4 8.8 ALBUMIN g/dL -- 3.9 ALK PHOS U/L -- 42 ALT U/L -- 13 AST U/L -- 24 Results from last 7 days Lab Units 01/18/24 0724 01/18/24 0257 01/17/24 1754 01/17/24 0535 BEDSIDE GLUCOSE mg/dL 119* -- 94 -- GLUCOSE mg/dL -- 123* -- 102* Results from last 3 days Lab Units 01/18/24 0257 01/17/24 0535 WBC X10E9/L 6.2 8.1 HEMOGLOBIN g/dL 15.2 13.7 HEMATOCRIT % 44.5 40.6 PLATELETS X10E9/L 80* 99* MCV fL 86 85 Results from last 3 days Lab Units 01/18/24 0300 01/17/24 0535 MAGNESIUM mg/dL 1.7* 1.3* No data from last 3 days. Results from last 3 days Lab Units 01/17/24204401/17/24 0535 TOTAL BILIRUBIN mg/dL -- 0.6 BILIRUBIN, URINE Negative -- Lab Results Component Value Date HGBA1C 6.6 (H) 01/18/2024 Lab Results Component Value Date IRON 74 01/17/2024 TIBC 449 (H) 01/17/2024 FERRITIN 42 01/17/2024 Lab Results Component Value Date IRONSAT 16 (L) 01/17/2024 Lab Results Component Value Date [id number] 242 01/17/2024 Lab Results Component Value Date FOLATE 9.3 01/17/2024 Lab Results Component Value Date VITD25 20.4 (L) 01/17/2024 Comments (labs): Hypomagnesemia (1.7) Medications/ Parenteral: Reviewed Medications Prior to Admission Medication Sig Dispense Refill Last Dose albuterol (PROVENTIL HFA;VENTOLIN HFA) 90 mcg/actuation inhaler Inhale 2 puffs every 6 (six) hours as needed for wheezing. Other - as prescribed carvediloL (COREG) 6.25 mg tablet Take 1 tablet (6.25 mg total) by mouth in the morning and 1 tablet (6.25 mg total) in the evening. Take with meals. citalopram (CeleXA) 20 mg tablet Take 1 tablet (20 mg total) by mouth in the morning. Indications: major depressive disorder. colestipoL (COLESTID) 1 g tablet Take 1 tablet (1 g total) by mouth in the morning. cyclobenzaprine (FLEXERIL) 10 mg tablet Take 1 tablet (10 mg total) by mouth 2 (two) times a day asneeded for muscle spasms. 10 tablet 0 Other - as prescribed fenofibrate (LOFIBRA) 160 mg tablet Take 1 tablet (160 mg total) by mouth in the morning. gabapentin (NEURONTIN) 800 mg tablet Take 1 tablet (800 mg total) by mouth in the morning and 1 tablet (800 mg total) at noon and 1 tablet (800 mg total) in the evening and 1 tablet (800 mg total) before bedtime. Indications: neuropathic pain. 9am, 2pm, 8pm, midnight. HUMALOG KWIKPEN INSULIN 100 unit/mL insulin pen Inject 18 Units under the skin in the morning and 18 Units at noon and 18 Units in the evening. Inject with meals. 0 hydroCHLOROthiazide (HYDRODIURIL) 25 mg tablet Take 1 tablet (25 mg total) by mouth daily. hyoscyamine (ANASPAZ,LEVSIN) 0.125 mg tablet Take 1 tablet (0.125 mg total) by mouth in the morningand 1 tablet (0.125 mg total) at noon and 1 tablet (0.125 mg total) in the evening and 1 tablet (0.125 mg total) before bedtime. linagliptin-metFORMIN 2.5-1,000 mg tablet Take 1 tablet by mouth 2 (two) times daily at 0800 and 1500. losartan (COZAAR) 100 mg tablet Take 1 tablet (100 mg total) by mouth in the morning. magnesium oxide (MAGOX) 400 mg tablet Take 1 tablet (400 mg total) by mouth in the morning. meloxicam (MOBIC) 15 mg tablet Take 1 tablet (15 mg total) by mouth daily as needed for pain. omeprazole (PriLOSEC) 40 mg capsule Take 1 capsule (40 mg total) by mouth in the morning and at bedtime. ondansetron (ZOFRAN) 8 mg tablet Take 1 tablet (8 mg total) by mouth every 8 (eight) hours as needed for nausea or vomiting. Other - as prescribed OZEMPIC 0.25 mg or 0.5 mg (2 mg/3 mL) pen injector Inject 0.5 mg under the skin once a week. Monday sucralfate (CARAFATE) 1 gram tablet Take 1 tablet (1 g total) by mouth in the morning and 1 tablet (1 g total) at noon and 1 tablet (1 g total) in the evening and 1 tablet (1 g total) before bedtime. tamsulosin (FLOMAX) 0.4 mg capsule Take 1 capsule (0.4 mg total) by mouth nightly. 0 traZODone (DESYREL) 50 mg tablet Take 1 tablet (50 mg total) by mouth nightly. TRESIBA FLEXTOUCH U-100 100 unit/mL (3 mL) insulin pen Inject 20 Units under the skin in the morning. VIBERZI 100 mg tablet Take 1 tablet (100 mg total) by mouth in the morning and 1 tablet (100 mg total) in the evening. Take with meals. XIFAXAN 550 mg tablet Take 1 tablet (550 mg total) by mouth in the morning and at bedtime. acetaminophen (TYLENOL EXTRA STRENGTH) 500 mg tablet Take 2 tablets (1,000 mg total) by mouth every6 (six) hours. 30 tablet 0 UNIFINE PENTIPS PLUS 31 gauge x 1/4 needle use four times a day as directed 0 Current Facility-Administered Medications Medication Dose Route Frequency Provider Last Rate Last Admin [Transfer Hold] acetaminophen (TYLENOL EXTRA STRENGTH) tablet 1,000 mg 1,000 mg oral Q6H SADA Stephen Hannah MD 1,000 mg at 01/18/24 0524 [Transfer Hold] albuterol (PROVENTIL,VENTOLIN) nebulizer solution 2.5 mg 2.5 mg nebulization Q6H PRN Stephen Hannah MD calcium citrate (CALCITRATE) tablet 400 mg 400 mg oral TID with meals Vilma Beckwith PA-C ceFAZolin (ANCEF) 3,000 mg in sodium chloride 0.9 % 100 mL IVPB-MBP 3,000 mg intravenous Q8H Darrell Beckwith PA-C [Transfer Hold] cholecalciferol (VITAMIN D3) capsule 50,000 Units 50,000 Units oral Weekly DO Stella cholecalciferol (vitamin D3) tablet 2,000 Units 2,000 Units oral Daily Vilma Beckwith PA-C [Transfer Hold] citalopram (CeleXA) tablet 20 mg 20 mg oral Daily Stephen Hannah MD 20 mg at 01/18/24 0845 [Transfer Hold] cyclobenzaprine (FLEXERIL) tablet 10 mg 10 mg oral BID PRN Stephen Hannah MD 10mg at 01/17/242023 [Transfer Hold] dextrose (GLUTOSE) 40 % gel 15 g 15 g oral PRN Stephen Hannah MD [Transfer Hold] dextrose 5 % (D5W) infusion 100 mL/hr intravenous Continuous PRN Stephen Hannah MD [Transfer Hold] dextrose 50 % in water (D50W) 50% solution 25 mL 25 mL intravenous PRN Stephen Hannah MD [START ON 01/19/2024] enoxaparin (LOVENOX) syringe 40 mg 40 mg subcutaneous Daily Vilma Beckwith PA-C ergocalciferol (DRISDOL) capsule 50,000 Units 50,000 Units oral Weekly Vilma Beckwith PA-C [Transfer Hold] fenofibrate micronized (LOFIBRA) capsule 134 mg 134 mg oral Daily with breakfast Stephen Hannah MD fentaNYL (SUBLIMAZE) 50 mcg/mL injection - Pyxis Override Pull fentaNYL (SUBLIMAZE) injection 25 mcg 25 mcg intravenous Q5 Min PRN Jonathan Reyes MD fentaNYL (SUBLIMAZE) injection 50 mcg 50 mcg intravenous Q5 Min PRN Jonathan Reyes MD 50 mcg at 01/18/24 1414 [Transfer Hold] gabapentin (NEURONTIN) capsule 800 mg 800 mg oral 4x Daily Stephen Hannah MD 800 mg at 01/17/24 214 [Transfer Hold] glucagon HCL injection 1 mg 1 mg intramuscular PRN Stephen Hannah MD HYDROmorphone (DILAUDID) injection 0.2 mg 0.2 mg intravenous Q5 Min PRN Jonathan Reyes MD HYDROmorphone (DILAUDID) injection 0.4 mg 0.4 mg intravenous Q5 Min PRN Jonathan Reyes MD [Transfer Hold] HYDROmorphone (PF) (DILAUDID) injection 1 mg 1 mg intravenous Q2H PRN Geoffrey Mckee DO 1 mg at 01/18/24 0827 [Transfer Hold] ibuprofen (MOTRIN) tablet 800 mg 800 mg oral Q6H PRN Stephen Hannah MD 800 mg at 01/17/24 2014 [Transfer Hold] insulin lispro (HumaLOG) injection 1-4 Units 1-4 Units subcutaneous Nightly Dianelys Hannah MD [Transfer Hold] insulin lispro (HumaLOG) injection 1-5 Units 1-5 Units subcutaneous TID with meals Stephen Hannah MD lactated ringers infusion 50 mL/hr intravenous Continuous Jonathan Reyes MD [Transfer Hold] lidocaine (LIDODERM) 5 % 1 patch 1 patch transdermal Daily Stephen Hannah MD 1 patch at 01/17/24 2014 [Transfer Hold] magnesium sulfate IVPB 2000 mg/50 mL in iso-osmotic water (40 mg/mL premix) 2,000 mg intravenous PRN Stephen Hannah MD Stopped at 01/18/24 0751 [Transfer Hold] magnesium sulfate IVPB 4000 mg/100 mL in iso-osmotic water (40 mg/mL premix) 4,000 mg intravenous PRN Stephen Hannah MD [Transfer Hold] melatonin (CIRCADIN) tablet 3 mg 3 mg oral Nightly PRN Stephen Hannah MD naloxone (NARCAN) injection 0.1 mg 0.1 mg intravenous PRN Jonathan Reyes MD [Transfer Hold] nicotine (NICODERM CQ) 14 mg/24 hr 1 patch 1 patch transdermal Daily Stephen Hannah MD 1 patch at 01/17/24 2314 [Transfer Hold] ondansetron (PF) (ZOFRAN) injection 4 mg 4 mg intravenous Q4H PRN Stephen Hannah MD ondansetron (PF) (ZOFRAN) injection 4 mg 4 mg intravenous Once PRN Jonathan Reyes MD [Transfer Hold] oxyCODONE (ROXICODONE) immediate release tablet 10 mg 10 mg oral Q4H PRN Stephen Hannah MD 10 mg at 01/18/24 0304 [Transfer Hold] oxyCODONE (ROXICODONE) immediate release tablet 5 mg 5 mg oral Q4H PRN Stephen Hannah MD [Transfer Hold] pantoprazole (PROTONIX) EC tablet 40 mg 40 mg oral Daily Stephen Hannah MD [Transfer Hold] polyethylene glycol (GLYCOLAX) packet 17 g 17 g oral BID Stephen Hannah MD 17 gat 01/17/242014 [Transfer Hold] potassium chloride (K-TAB,KLOR-CON) CR tablet 30-50 mEq 30-50 mEq oral PRN Stephen Hannah MD 40 mEq at 01/17/242013 Or [Transfer Hold] potassium chloride (KAYCIEL) 20 mEq/15 mL solution 30-50 mEq 30- 50 mEq oral PRN Stephen Hannah MD scopolamine (TRANSDERM-SCOP) 1 mg/3 days 1 patch 1 patch transdermal Once Manuel Strauss MD 1 patch at 01/18/24 1105 [Transfer Hold] sennosides-docusate sodium (SENOKOT-S) 8.6-50 mg 2 tablet 2 tablet oral BID Dianelys Hannah MD 2 tablet at 01/17/242014 [Transfer Hold] tamsulosin (FLOMAX) 24 hr capsule 0.4 mg 0.4 mg oral Nightly Stephen Hnanah MD 0.4 mg at 01/17/24 2148 Nutrition Focused Physical Findings Last BM 01/14 Extremities, Muscles, and Bones A. Muscle Loss-EMILY not on floor B. Loss of Subcutaneous Fat-EMILY not on floor Skin (per nursing flow sheets): Skin Color: [place] (01/18/24 133) Skin Temp: Dry; Warm (01/18/241334) Wound (per nursing flow sheets): Wound 01/18/24 Incision Leg Right-Site Assessment: Unable to assess (01/18/24 133) Gastrointestinal (per nursing flow sheets): Abdomen Assessment: Rounded; Obese (01/18/24 1335) Last BM Date: 01/15/24 (01/18/24 0800) Passing Flatus: No (01/18/241334) RUQ Bowel Sounds: Hypoactive (01/18/24 1335) LUQ Bowel Sounds: Hypoactive (01/18/24 1335) RLQ Bowel Sounds: Hypoactive (01/18/241334) LLQ Bowel Sounds: Hypoactive (01/18/24 1335) GI Symptoms: None (01/18/24 133) Edema (per nursing flow sheets): --- Intake/ Output Last 24 hrs: Intake/Output Summary (Last 24 hours) at 01/18/2024 1417 Last data filed at 01/18/2024 1315 Gross per 24 hour Intake 800 ml Output 2200 ml Net -1400 ml Food/Nutrition Related History: Diet History: Unable to obtain diet/weight history at this time as patient currently off the floor.Patient did not trigger for 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 Allergies: Allergies Allergen Reactions Insulin Glargine Nausea And Vomiting and GI Disturbance Diet/ Nutrition Order Review: Diet Intakes: NPO (01/17) Anthropometrics: Ht Readings from Last 1 Encounters: 01/18/24 185.4 cm (6' 0.99 ) Wt Readings from Last 20 Encounters: 01/18/24 115.7 kg (255 lb) 08/19/22 113.4 kg (250 lb) 03/16/22 115.2 kg (254 lb) 11/16/21 115.5 kg (254 lb 9.6 oz) 11/02/21 114.4 kg (252 lb 3.3 oz) 10/31/21 116.6 kg (257 lb) 10/27/21 115.7 kg (255 lb) 10/05/21 118 kg (260 lb 3.2 oz) 09/09/21 118.4 kg (261 lb) 07/02/21 102.1 kg (225 lb) 06/11/21 117 kg (258 lb) 04/15/21 117.5 kg (259 lb) 04/05/21 116.8 kg (257 lb 8 oz) 03/24/21 115.2 kg (254 lb) 05/29/20 114.2 kg (251 lb 12.8 oz) 09/25/19 108.9 kg (240 lb) 11/04/18 118.8 kg (262 lb) 04/12/18 118.8 kg (262 lb) 01/20/18 112.5 kg (248 lb) 07/21/17 111.1 kg (245 lb) Last 3 Weight Readings 01/17/24 1009 01/17/24 1609 01/18/24 1049 Weight: 113.4 kg (250 lb) 115.7 kg (255 lb) 115.7 kg (255 lb) Current Body Weight: 115.7kg (01/17; unknown method/stated) Admit Weight: 113.4kg (01/16; unknown method)-question if this was UBW from 08/19/22) Usual Body Weight: 113.4kg (08/19/22) [place] Body Weight: 83.6kg Percent [place] Body Weight: 139 Weight Changes: Need new weight, bed scale vs standing scale. Body Mass Index: Body mass index is 33.65 kg/m . BMI Category: Obese class 1 (30.00- 34.99) Comparative Standards: Estimated Energy Needs: 6442-7336 kcals daily. Method and weight used: 25-32 kcal/kg IBW (83.6kg) Estimated Protein Needs: 100-165 grams daily. Method and weight used: 1.2-2g protein/kg IBW Estimated Fluid Needs: 2347-6910 ml daily. Method weight used: 1ml/kcal Comments: General Needs; higher end d/t hip surgery Malnutrition Status: Malnutrition Present: Need more info. NUTRITION DIAGNOSIS: Intake Diagnosis: Predicted suboptimal energy intake (NI 1.4) related to increased nutrient needs as evidenced by hip fracture surgery and oral intakes not meeting needs. NUTRITION INTERVENTIONS: Continue NPO status for procedure. Advance following/as medically appropriate. Will add on oral nutritional supplements for when diet advanced. Will add Glucerna BID to provide 220 kcal and 10 g protein per serving. GOAL(S): Meet estimated calorie and protein needs. NUTRITION MONITORING AND EVALUATION: PO intakes, weight trend, labs, POC and overall status. Hannah Nails RD, AARTI Clinical Dietitian Direct Line: [facility] [employer] [id number] Procedure note* Op Note - Ang Figueroa MD - 01/18/2024 12:24 PM EDT DATE OF OPERATION: January 18, 2024 PREOPERATIVE DIAGNOSIS: 1. right intertrochanteric hip fracture. POSTOPERATIVE DIAGNOSIS: 1. Same OPERATION: 1. IM nail right intertrochanteric hip fracture.- [id number] SURGEON: Ang Figueroa MD WHITE SOURER: none ANESTHESIA: General. MEDICATIONS: ancef IV preop. ESTIMATED BLOOD LOSS: 150 mL. FLUIDS: 800 mL of crystalloid. URINE OUTPUT: NR DRAINS: None. COMPLICATIONS: None. SPECIMEN: None. DISPOSITION: PACU. FINDINGS: Soft compartments and probable pulse at the completion of the case. Brisk capillary refill. Stable in alignment rotation of the fracture. Safe extra-articular placement of all implants. PLAN: Weight bearing as tolerated on limb right lower extremity, 24 hours of antibiotics, DVT prophylaxis with Lovenox, PT/OT, monitor x-rays and labs, will need rehab placement most likely. Stable for disposition rehab when stable from a medical standpoint. Geriatric fracture program. IMPLANTS USED: Synthes 17 cm, 12 mm, 125 degrees, 95 mm lag screw with 36 mm distal locking bolt. HPI/INDICATION FOR SURGERY: Ruth Smith is a 53 y.o. male status post fall with complaints of right hip pain and inability to ambulate. Radiographic imaging identified a right intertrochanteric hip fracture indicating the patient for the aforementioned surgical stabilization procedure. The patient was seen and ev aluated and optimized by medical service for surgical intervention. I discussed the patient and family preoperatively risks, benefits, alternatives, surgical and nonsurgical management including bleeding, infection, , damage to normal structure, PE, DVT, VT, stroke, nonunion, malunion, chronicpain, arthrosis, arthritis, limited function, avascular necrosis of femoral head and need for further surgery. They understand the high mortality rate associated with hip fractures, limited function,walking, mortality and morbidity associated with hip fractures as well as the risks of recumbency (PE/DVT, UTI, decubitus ulcer, pneumonia). DESCRIPTION OF PROCEDURE: The patient was identified in the preoperative holding area. My initials were placed on operative extremity. Consent was deemed appropriate. he was taken to the operating room by the anesthesia staffwith controlled airway in the C-spine all times during the case. he was placed supine on the bed and underwent general anesthesia. Well-padded boots were placed on his limbs and he was placed on the fracture table in the standard fashion. he was secured to the table in standard fashion after care was taken to identify and paddle bony prominences. The arm was secured in the standard fashion. he was provisonally draped in plastic draping and then scrubbed with chlorhexidine scrub. he was prepped and draped in standard sterile orthopedic fashion. A time-out was performed. Everybody in the room stopped. Consent was read aloud and surgical procedure commenced. After antibiotics were confirmed and given, my extremity jeffrey was identified. Traction and internal rotation of his limb was performed. AP and lateral fluoroscopic imaging confirmed appropriate length, alignment, and rotation of the hip fracture. Through a percutaneous incision on the hip, a guidewire wire was placed in the appropriate position on the proximal femur for the t rochanteric nail insertion and inserted into bone. This was confirmed to he in an appropriate position on AP and lateral fluoroscopic imaging. Prior to entry reaming a stab incision was made over thelateral side of the femur and a drill bit was placed through the intertrochanteric area to vent thefemur as this was a nondisplaced fracture to try to lower the risk of Fat embolism syndrome. A 2 cm incision was made over top of this wire. The entry reamer was placed down to the greater trochanterand reaming to the level of lesser trochanter was performed. The ball-tipped guide kateryna was placed down to the femur and confirmed fluoroscopic imaging and reamed to 14mm. The short nail was then placed to the appropriate depth. AP and lateral fluoroscopic imaging confirmed appropriate placement of the nail at the level of the hip and through a second incision, the jig was placed for the proximal insertion of the wire. This was placed in center-center deep position in the proximal head/neck fragment. Length assessment was performed. Proximal preparation for the lag screw was performed and the aforementioned lag screw was placed in the deep center-center position, and verified to be in an extra-articular safe position. Compression across the fracture was obtained in the standard fashion andidentified under fluoroscopic localization. The distal interlocking screw was then placed through the jig in the standard fashion. Final AP and lateral fluoroscopic imaging in the hip fracture identified appropriate length, alignment, and rotation of her femur with fixation of her fracture. There was safe, extra-articular placement of the implants. All provisional wires reduction tools and jigs were removed. All wounds were copiously irrigated with normal saline. Deep layers were closed with #1Vicryl, 2-0 Vicryl and esmer for the skin. Sterile dressings were applied. The patient was removed from the fracture table in the standard fashion. Awaken from anesthesia in stable condition, transferred to PACU. All counts were correct at the end of the case. his has soft compartments and palpable pulses. Evidence of infection was not visualized at time of surgery. ANG FIGUEROA MD [facility] [employer] [facility] [id number] Attending History and physical note* Ang Figueroa MD - 01/18/2024 10:32 AM EDT Images from the original note were not included. Cleared by the medical team for IMN, plt 88 with I am ok with for IMN Femur I have seen and evaluated the patient. The above documentation in accurate and he is optimized for the planned intervention. ANG FIGUEROA MD Source Note - Ang Figueroa MD - 01/17/2024 10:58 AM EDT Images from the original note were not included. Chief complaint: right hip pain HPI: Ruth Smith is a 53 y.o. male [facility] c/o right hip pain after a fall. Patient states that he was helping his neighbor take his blood pressure and tripped and fell over his dog. Patient admits to pain to right hip. Patient denies pain to right knee, ankle, foot. Patient denies pain to upper extremities. 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 Patient was seen at outside hospital and was [facility]. Patient has no other complaints at this time. Date of injury was 01/16/24. Pain is described as Sharp, localized to his right hip. He does not have associated injuries. He is having any numbness or tingling. Pain is improved with rest; and worsened by movement, activity, and dependent positioning Past Medical History: Diagnosis Date Asthma Back pain Chronic cough Chronic pain disorder Colon cancer (CMS-HCC) Colon cancer ([facility]) Depression Diabetes mellitus type 2, controlled ([facility]) Fibromyalgia, primary GERD (gastroesophageal reflux disease) Hyperlipidemia Hypertension Insulin-treated type 2 diabetes mellitus ([facility]) Joint pain Kidney stones Liver disease Low back pain Neck pain Obesity Osteoarthritis Visual impairment Past Surgical History: Procedure Laterality Date BACK SURGERY COLON SURGERY resection, 2018, [facility] DAVINCI REPAIR HERNIA VENTRAL N/A 10/27/2021 Performed by Ridge Cedillo MD at [facility] pt had all teeth removed HERNIA REPAIR x's 2 ORTHOPEDIC SURGERY 2007 foot, infected foot Social History Tobacco Use Smoking status: Every Day Current packs/day: 0.50 Average packs/day: 0.5 packs/day for 20.0 years (10.0 ttl pk-yrs) Types: Cigarettes Smokeless tobacco: Never Substance Use Topics Alcohol use: No Drug use: No Family History Problem Relation Age of Onset Heart disease Father Colon cancer Paternal Aunt Heart disease Maternal Grandmother Heart disease Paternal Grandmother Heart disease Paternal Grandfather Allergies as of 01/17/2024 (No Known Allergies) Current Facility-Administered Medications: HYDROmorphone (PF) (DILAUDID) injection 1 mg, 1 mg, intravenous, Q2H PRN, Geoffrey Mckee DO, 1 mg at 01/17/24 1023 sodium chloride 0.9 % infusion, 250 mL/hr, intravenous, Continuous, Geoffrey Mckee DO, Last Rate: 250 mL/hr at 01/17/24 1034, 250 mL/hr at 01/17/24 1034 Current Outpatient Medications: acetaminophen (TYLENOL EXTRA STRENGTH) 500 mg tablet, Take 2 tablets (1,000 mg total) by mouth every 6 (six) hours., Disp: 30 tablet, Rfl: 0 albuterol (PROVENTIL HFA;VENTOLIN HFA) 90 mcg/actuation inhaler, Inhale 2 puffs every 6 (six) hoursas needed for wheezing., Disp: , Rfl: citalopram (CeleXA) 20 mg tablet, Take 20 mg by mouth daily Indications: major depressive disorder., Disp: , Rfl: cyclobenzaprine (FLEXERIL) 10 mg tablet, Take 1 tablet (10 mg total) by mouth 2 (two) times a day as needed for muscle spasms., Disp: 10 tablet, Rfl: 0 fenofibrate (LOFIBRA) 160 mg tablet, Take 160 mg by mouth daily., Disp: , Rfl: gabapentin (NEURONTIN) 300 mg capsule, Take 300 mg by mouth 3 (three) times a day Indications: neuropathic pain. , Disp: , Rfl: HUMALOG KWIKPEN INSULIN 100 unit/mL insulin pen, Inject 18 Units under the skin 3 (three) times a day with meals. , Disp: , Rfl: 0 ibuprofen (ADVIL,MOTRIN) 800 mg tablet, Take 1 tablet (800 mg total) by mouth every 6 (six) hours as needed for pain., Disp: 30 tablet, Rfl: 0 insulin glargine (LANTUS) 100 unit/mL (3 mL) insulin pen, Inject 45 Units under the skin nightly. ,Disp: , Rfl: linagliptin-metFORMIN 2.5-1,000 mg tablet, Take by mouth 2 (two) times daily at 0800 and 1500. , Disp: , Rfl: lisinopriL (PRINIVIL,ZESTRIL) 40 mg tablet, Take 40 mg by mouth daily Indications: high blood pressure., Disp: , Rfl: metoprolol succinate XL (TOPROL-XL) 50 mg 24 hr tablet, Take 50 mg by mouth 2 (two) times a day., Disp: , Rfl: ondansetron (ZOFRAN) 8 mg tablet, Take 8 mg by mouth every 8 (eight) hours as needed for nausea or vomiting. , Disp: , Rfl: pantoprazole (PROTONIX) 40 mg EC tablet, Take 40 mg by mouth daily., Disp: , Rfl: polyethylene glycol (GLYCOLAX) 17 gram packet, Take 17 g by mouth in the morning and 17 g before bedtime., Disp: 30 packet, Rfl: 1 sennosides-docusate sodium (SENOKOT-S) 8.6-50 mg, Take 2 tablets by mouth in the morning and 2 tablets before bedtime., Disp: 60 tablet, Rfl: 1 sucralfate (CARAFATE) 1 gram tablet, Take 1 g by mouth 4 (four) times a day., Disp: , Rfl: tamsulosin (FLOMAX) 0.4 mg capsule, Take 0.4 mg by mouth nightly. , Disp: , Rfl: 0 traZODone (DESYREL) 50 mg tablet, Take 50 mg by mouth nightly., Disp: , Rfl: UNIFINE PENTIPS PLUS 31 gauge x 1/4 needle, use four times a day as directed, Disp: , Rfl: 0 VIBERZI 100 mg tablet, Take 100 mg by mouth 2 (two) times a day with meals., Disp: , Rfl: REVIEW OF SYSTEMS: MSK: Positive for right hip pain, Neuro: Negative for numbness or tingling, All other ROS negative (10 systems reviewed) PHYSICAL EXAM: Vitals: BP 102/86 Pulse 77 Temp 36.7 C (98.1 F) (Oral) Resp 18 Ht 180.3 cm (5' 11 ) Wt 113.4 kg (250 lb) SpO2 96% BMI 34.87 kg/m General: Well-nourished, Well-developed and Age appropriate LOC: awake and alert Orientation: oriented to person, place, time, and recent events Psych: Ple[place] and [place]: Lying supine on hospital bed HEENT: normocephalic, atraumatic head, neck, & facies, no ecchymosis or abrasions, midline trachea Resp: no respiratory distress, acyanotic, normal RR, breathing easily, nonlabored, no use of accessory muscles Musculoskeletal: right Lower Extremity: Observation: No obvious gross deformity noted to right LE. Skin: intact without warmth, erythema, lesions, cuts, or abrasions. Palpation: +TTP to right hip. Non-tender to knee, ankle, foot. No palpable gross step offs or crepitus. Positive log roll. ROM: Hip/knee: Unable to assess due to known hip fracture Ankle: AROM neutral to full DF, AROM neutral to full PF Foot: Full AROM flexion 1-5 digits, full AROM extension 1-5 digits Neurovascular: 2+ palpable DP and PT pulses. Toes pink and warm with cap refill <2 seconds. Fullsensation to light touch pressure and pain DP/SP/Tibial/Sural/Saphenous nerve innervations right foot. Compartments: Thigh/anterior tibial/calf compartments soft and compressible. IMAGING: I personally viewed X-ray of right hip - Cursory exam reveals right nondisplaced intertrochanteric fracture. No other acute osseous abnormalities noted. I personally viewed CT of right hip - Cursory exam reveals right nondisplaced intertrochanteric fracture. No other acute osseous abnormalities noted. Imaging: CT hip right without contrast Result Date: 01/17/2024 CT right hip without contrast HISTORY: Fracture COMPARISON: Radiograph earlier same day TECHNIQUE: CT right hip without contrast performed according to standard protocol. FINDINGS: Acute fracture extending from the right greater trochanter through the intertrochanteric region. No displacement. Hip joint intact. No additional fractures. Soft tissue structures are unremarkable. IMPRESSION: * Acute nondisplaced intertrochanteric right hip fracture. All CT scans at this facility use dose modulation, iterative reconstruction, and/or weight based dosing when appropriate to reduce radiation dose to as low as reasonably achievable. Finalized by Sylvester Collins MD on 01/17/2024 4:37 AM X-ray hip right 2-3 views with or without pelvis Result Date: 01/17/2024 XR HIP RT 2-3 VIEWS W OR WO PELVIS HISTORY: Hip pain, fall, injury COMPARISON: None FINDINGS: AP and lateral views of the right hip with an AP pelvis view obtained. Acute, nondisplaced fracture involving the right greater trochanter. There is no destructive osseous lesion. The joint space is well maintained without degenerative changes. The osseous structures are well mineralized. IMPRESSION: * Acute, nondisplaced fracture involving the right greater trochanter. Extension through the intertrochanteric region not fully excluded on these images. Approved by Resident: Singh Melgar DO on 01/17/2024 3:49 AM ISylvester MD have personally reviewed the image(s) and agree with and/or edited the report Finalized by Sylvester Collins MD on 01/17/2024 3:54 AM X-ray knee right 1 or 2 views Result Date: 01/17/2024 2 VIEWS RIGHT KNEE HISTORY: Fall, pain COMPARISON: None FINDINGS: Chondrocalcinosis. No acute fracture. No dislocation. IMPRESSION: No acute osseous abnormalities in the right knee. Finalized by Sylvester Clolins MD on 01/17/2024 3:49 AM LABS: Lab Results Component Value Date WBC 8.1 01/17/2024 HGB 13.7 01/17/2024 HCT 40.6 01/17/2024 MCV 85 01/17/2024 PLT 99 (L) 01/17/2024 Lab Results Component Value Date GLU 102 (H) 01/17/2024 CALCIUM 8.8 01/17/2024 K 3.3 (L) 01/17/2024 CO2 25 01/17/2024 BUN 17 01/17/2024 CREATININE 0.95 01/17/2024 No results found for: VITD25 Lab Results Component Value Date INR 1.0 01/17/2024 INR 1.1 01/17/2024 INR 1.0 10/13/2021 PROTIME 12.2 01/17/2024 PROTIME 12.5 01/17/2024 PROTIME 12.0 10/13/2021 DIAGNOSIS: 1) Ruth Smith is a 53 y.o. male with right intertrochanteric hip fracture ASSESSMENT/PLAN: - Patient d/w Dr. Figueroa. - Patient to remain NWB right lower extremity at all times. - Ice and elevation of affected extremity at all times. - N/V checks - per protocol - Pain control - per primary - DVT Prophylaxis - per primary - NPO midnight. Plan for operative stabilization 01/18/2024 pending medical clearance - Attending to see Please contact ortho hot pager for any questions/concerns [phone] LUIS MCCARTHY PA-C 01/17/24 1112 I, ANG FIGUEROA MD, personally performed the face to face diagnostic evaluation on this patient. My findings are as follows: Patient seen evaluated in the emergency department. He was transferred from [place] for orthopedic care to [place]. He had a mechanical fall resulting in a right hip injury. He has multitude of comorbidities including diabetes hypertension history of cancer. I discussed with him his injury and the plan for surgical intervention. We are tentatively planning for this tomorrow with Dr. Lanza for operative stabilization of his hip. Discussed with the standard risks benefits alternatives. We will plan for surgery tomorrow. Complete medical workup and optimization for the medical standpoint. Ang Figueroa MD. [employer] Work Phone: [phone] 410-741606-06-2024 History and physical note* Ang Figueroa MD - 01/18/2024 10:32 AM EDT Images from the original note were not included. Cleared by the medical team for IMN, plt 88 with I am ok with for IMN Femur I have seen and evaluated the patient. The above documentation in accurate and he is optimized for the planned intervention. ANG FIGUEROA MD Source Note - Ang Figueroa MD - 01/17/2024 10:58 AM EDT Images from the original note were not included. Chief complaint: right hip pain HPI: Ruth Smith is a 53 y.o. male presents to [facility] c/o right hip pain after a fall. Patient states that he was helping his neighbor take his blood pressure and tripped and fell over his dog. Patient admits to pain to right hip. Patient denies pain to right knee, ankle, foot. Patient denies pain to upper extremities. 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 Patient was seen at outside hospital and was [facility]. Patient has no other complaints at this time. Date of injury was 01/16/24. Pain is described as Sharp, localized to his right hip. He does not have associated injuries. He is having any numbness or tingling. Pain is improved with rest; and worsened by movement, activity, and dependent positioning Past Medical History: Diagnosis Date Asthma Back pain Chronic cough Chronic pain disorder Colon cancer ([facility]) Colon cancer ([facility]) Depression Diabetes mellitus type 2, controlled ([facility]) Fibromyalgia, primary GERD (gastroesophageal reflux disease) Hyperlipidemia Hypertension Insulin-treated type 2 diabetes mellitus ([facility]) Joint pain Kidney stones Liver disease Low back pain Neck pain Obesity Osteoarthritis Visual impairment Past Surgical History: Procedure Laterality Date BACK SURGERY COLON SURGERY resection, 2018, [facility] DAVINCI REPAIR HERNIA VENTRAL N/A 10/27/2021 Performed by Ridge Cedillo MD at [facility] DENTAL SURGERY pt had all teeth removed HERNIA REPAIR x's 2 ORTHOPEDIC SURGERY 2008 foot, infected foot Social History Tobacco Use Smoking status: Every Day Current packs/day: 0.50 Average packs/day: 0.5 packs/day for 20.0 years (10.0 ttl pk-yrs) Types: Cigarettes Smokeless tobacco: Never Substance Use Topics Alcohol use: No Drug use: No Family History Problem Relation Age of Onset Heart disease Father Colon cancer Paternal Aunt Heart disease Maternal Grandmother Heart disease Paternal Grandmother Heart disease Paternal Grandfather Allergies as of 01/17/2024 (No Known Allergies) Current Facility-Administered Medications: HYDROmorphone (PF) (DILAUDID) injection 1 mg, 1 mg, intravenous, Q2H PRN, Geoffrey Mckee DO, 1 mg at 01/17/24 1023 sodium chloride 0.9 % infusion, 250 mL/hr, intravenous, Continuous, Geoffrey Mckee DO, Last Rate: 250 mL/hr at 01/17/24 1034, 250 mL/hr at 01/17/24 1034 Current Outpatient Medications: acetaminophen (TYLENOL EXTRA STRENGTH) 500 mg tablet, Take 2 tablets (1,000 mg total) by mouth every 6 (six) hours., Disp: 30 tablet, Rfl: 0 albuterol (PROVENTIL HFA;VENTOLIN HFA) 90 mcg/actuation inhaler, Inhale 2 puffs every 6 (six) hoursas needed for wheezing., Disp: , Rfl: citalopram (CeleXA) 20 mg tablet, Take 20 mg by mouth daily Indications: major depressive disorder., Disp: , Rfl: cyclobenzaprine (FLEXERIL) 10 mg tablet, Take 1 tablet (10 mg total) by mouth 2 (two) times a day as needed for muscle spasms., Disp: 10 tablet, Rfl: 0 fenofibrate (LOFIBRA) 160 mg tablet, Take 160 mg by mouth daily., Disp: , Rfl: gabapentin (NEURONTIN) 300 mg capsule, Take 300 mg by mouth 3 (three) times a day Indications: neuropathic pain. , Disp: , Rfl: HUMALOG KWIKPEN INSULIN 100 unit/mL insulin pen, Inject 18 Units under the skin 3 (three) times a day with meals. , Disp: , Rfl: 0 ibuprofen (ADVIL,MOTRIN) 800 mg tablet, Take 1 tablet (800 mg total) by mouth every 6 (six) hours as needed for pain., Disp: 30 tablet, Rfl: 0 insulin glargine (LANTUS) 100 unit/mL (3 mL) insulin pen, Inject 45 Units under the skin nightly. ,Disp: , Rfl: linagliptin-metFORMIN 2.5-1,000 mg tablet, Take by mouth 2 (two) times daily at 0800 and 1500. , Disp: , Rfl: lisinopriL (PRINIVIL,ZESTRIL) 40 mg tablet, Take 40 mg by mouth daily Indications: high blood pressure., Disp: , Rfl: metoprolol succinate XL (TOPROL-XL) 50 mg 24 hr tablet, Take 50 mg by mouth 2 (two) times a day., Disp: , Rfl: ondansetron (ZOFRAN) 8 mg tablet, Take 8 mg by mouth every 8 (eight) hours as needed for nausea or vomiting. , Disp: , Rfl: pantoprazole (PROTONIX) 40 mg EC tablet, Take 40 mg by mouth daily., Disp: , Rfl: polyethylene glycol (GLYCOLAX) 17 gram packet, Take 17 g by mouth in the morning and 17 g before bedtime., Disp: 30 packet, Rfl: 1 sennosides-docusate sodium (SENOKOT-S) 8.6-50 mg, Take 2 tablets by mouth in the morning and 2 tablets before bedtime., Disp: 60 tablet, Rfl: 1 sucralfate (CARAFATE) 1 gram tablet, Take 1 g by mouth 4 (four) times a day., Disp: , Rfl: tamsulosin (FLOMAX) 0.4 mg capsule, Take 0.4 mg by mouth nightly. , Disp: , Rfl: 0 traZODone (DESYREL) 50 mg tablet, Take 50 mg by mouth nightly., Disp: , Rfl: UNIFINE PENTIPS PLUS 31 gauge x 1/4 needle, use four times a day as directed, Disp: , Rfl: 0 VIBERZI 100 mg tablet, Take 100 mg by mouth 2 (two) times a day with meals., Disp: , Rfl: REVIEW OF SYSTEMS: MSK: Positive for right hip pain, Neuro: Negative for numbness or tingling, All other ROS negative (10 systems reviewed) PHYSICAL EXAM: Vitals: BP 102/86 Pulse 77 Temp 36.7 C (98.1 F) (Oral) Resp 18 Ht 180.3 cm (5' 11 ) Wt 113.4 kg (250 lb) SpO2 96% BMI 34.87 kg/m General: Well-nourished, Well-developed and Age appropriate LOC: awake and alert Orientation: oriented to person, place, time, and recent events Psych: [place] and [place]: Lying supine on hospital bed HEENT: normocephalic, atraumatic head, neck, & facies, no ecchymosis or abrasions, midline trachea Resp: no respiratory distress, acyanotic, normal RR, breathing easily, nonlabored, no use of accessory muscles Musculoskeletal: right Lower Extremity: Observation: No obvious gross deformity noted to right LE. Skin: intact without warmth, erythema, lesions, cuts, or abrasions. Palpation: +TTP to right hip. Non-tender to knee, ankle, foot. No palpable gross step offs or crepitus. Positive log roll. ROM: Hip/knee: Unable to assess due to known hip fracture Ankle: AROM neutral to full DF, AROM neutral to full PF Foot: Full AROM flexion 1-5 digits, full AROM extension 1-5 digits Neurovascular: 2+ palpable DP and PT pulses. Toes pink and warm with cap refill <2 seconds. Fullsensation to light touch pressure and pain DP/SP/Tibial/Sural/Saphenous nerve innervations right foot. Compartments: Thigh/anterior tibial/calf compartments soft and compressible. IMAGING: I personally viewed X-ray of right hip - Cursory exam reveals right nondisplaced intertrochanteric fracture. No other acute osseous abnormalities noted. I personally viewed CT of right hip - Cursory exam reveals right nondisplaced intertrochanteric fracture. No other acute osseous abnormalities noted. Imaging: CT hip right without contrast Result Date: 01/17/2024 CT right hip without contrast HISTORY: Fracture COMPARISON: Radiograph earlier same day TECHNIQUE: CT right hip without contrast performed according to standard protocol. FINDINGS: Acute fracture extending from the right greater trochanter through the intertrochanteric region. No displacement. Hip joint intact. No additional fractures. Soft tissue structures are unremarkable. IMPRESSION: * Acute nondisplaced intertrochanteric right hip fracture. All CT scans at this facility use dose modulation, iterative reconstruction, and/or weight based dosing when appropriate to reduce radiation dose to as low as reasonably achievable. Finalized by Sylvester Collins MD on 01/17/2024 4:37 AM X-ray hip right 2-3 views with or without pelvis Result Date: 01/17/2024 XR HIP RT 2-3 VIEWS W OR WO PELVIS HISTORY: Hip pain, fall, injury COMPARISON: None FINDINGS: AP and lateral views of the right hip with an AP pelvis view obtained. Acute, nondisplaced fracture involving the right greater trochanter. There is no destructive osseous lesion. The joint space is well maintained without degenerative changes. The osseous structures are well mineralized. IMPRESSION: * Acute, nondisplaced fracture involving the right greater trochanter. Extension through the intertrochanteric region not fully excluded on these images. Approved by Resident: Singh Melgar DO on 01/17/2024 3:49 AM ISylvester MD have personally reviewed the image(s) and agree with and/or edited the report Finalized by Sylvester Collins MD on 01/17/2024 3:54 AM X-ray knee right 1 or 2 views Result Date: 01/17/2024 2 VIEWS RIGHT KNEE HISTORY: Fall, pain COMPARISON: None FINDINGS: Chondrocalcinosis. No acute fracture. No dislocation. IMPRESSION: No acute osseous abnormalities in the right knee. Finalized by Sylvester Collins MD on 01/17/2024 3:49 AM LABS: Lab Results Component Value Date WBC 8.1 01/17/2024 HGB 13.7 01/17/2024 HCT 40.6 01/17/2024 MCV 85 01/17/2024 PLT 99 (L) 01/17/2024 Lab Results Component Value Date GLU 102 (H) 01/17/2024 CALCIUM 8.8 01/17/2024 K 3.3 (L) 01/17/2024 CO2 25 01/17/2024 BUN 17 01/17/2024 CREATININE 0.95 01/17/2024 No results found for: VITD25 Lab Results Component Value Date INR 1.0 01/17/2024 INR 1.1 01/17/2024 INR 1.0 10/13/2021 PROTIME 12.2 01/17/2024 PROTIME 12.5 01/17/2024 PROTIME 12.0 10/13/2021 DIAGNOSIS: 1) Ruth Smith is a 53 y.o. male with right intertrochanteric hip fracture ASSESSMENT/PLAN: - Patient d/w Dr. Figueroa. - Patient to remain NWB right lower extremity at all times. - Ice and elevation of affected extremity at all times. - N/V checks - per protocol - Pain control - per primary - DVT Prophylaxis - per primary - NPO midnight. Plan for operative stabilization 01/18/2024 pending medical clearance - Attending to see Please contact ortho hot pager for any questions/concerns [phone] LUIS MCCARTHY PA-C 01/17/24 8218 I, ANG FIGUEROA MD, personally performed the face to face diagnostic evaluation on this patient. My findings are as follows: Patient seen evaluated in the emergency department. He was transferred from [place] for orthopedic care to [place]. He had a mechanical fall resulting in a right hip injury. He has multitude of comorbidities including diabetes hypertension history of cancer. I discussed with him his injury and the plan for surgical intervention. We are tentatively planning for this tomorrow with Dr. Lanza for operative stabilization of his hip. Discussed with the standard risks benefits alternatives. We will plan for surgery tomorrow. Complete medical workup and optimization for the medical standpoint. Ang Figueroa MD. * Stephen Hannah MD - 01/17/2024 11:03 AM EDT Principal Problem: Closed fracture of right hip, initial encounter ([facility]) CHIEF COMPLAINT: Right hip pain SUBJECTIVE: Patient is a 53-year-old male with known Hx/o DM2, HTN, HLD, COPD, Chronic pain disorder, Fibromyalgia, GERD/Esophagitis, Colon cancer s/p sigmoid colectomy, Liver cirrhosis secondary to hepatitis C,Chronic thrombocytopenia, cervical radiculopathy related to C5-C7 herniated disc presents with mechanical fall and right hip pain initially to [facility] and transferred to [facility]. Patient awake oriented x3 does not be in distress, tripped over a dog and landed on his right knee on a hard tile floor thereafter started having right knee and right hip pain presently controlled with medications. Patient mentions initially it knocked him off and he was short of breath when he could not catch his breath for few minutes. Presently denies any shortness of breath. Patient complains of chronic numbness and tingling in arms and legs and recently being evaluated for cervical radiculopathy symptoms because of herniated disc was supposed to see neurosurgeon next week. Patient has chronic rhinorrhea related to seasonal allergies. Patient denies chest pain, palpitations, syncope, near-syncope, URTI symptoms, headache, visual complaints, earache or ear discharge, dysarthria, dysphagia, focal weakness, fever or chills, abdominalpain, diarrhea, nausea, vomiting, weight loss, hemoptysis, hematemesis, hematochezia, melena, dysuria, urgency, frequency, hematuria, PAST MEDICAL HISTORY: Past Medical History: Diagnosis Date Asthma Back pain Chronic cough Chronic pain disorder Colon cancer ([facility]) Colon cancer ([facility]) Depression Diabetes mellitus type 2, controlled ([facility]) Fibromyalgia, primary GERD (gastroesophageal reflux disease) Hyperlipidemia Hypertension Insulin-treated type 2 diabetes mellitus ([facility]) Joint pain Kidney stones Liver disease Low back pain Neck pain Obesity Osteoarthritis Visual impairment Hx/o Hepatitis-C previously treated in 2017. Cervical radiculopathy related to herniated disc C5-7. PAST SURGICAL HISTORY: Past Surgical History: Procedure Laterality Date BACK SURGERY COLON SURGERY resection, 2018, [facility] DAVINCI REPAIR HERNIA VENTRAL N/A 10/27/2021 Performed by Ridge Cedillo MD at [facility] DENTAL SURGERY pt had all teeth removed HERNIA REPAIR x's 2 ORTHOPEDIC SURGERY 2007 foot, infected foot HOME MEDICATIONS: Home medications were reviewed. ALLERGIES: No Known Allergies SOCIAL HISTORY: Social History Socioeconomic History Marital status: Single Tobacco Use Smoking status: Every Day Current packs/day: 0.50 Average packs/day: 0.5 packs/day for 20.0 years (10.0 ttl pk-yrs) Types: Cigarettes Smokeless tobacco: Never Substance and Sexual Activity Alcohol use: No Drug use: No Sexual activity: Defer Social Determinants of Health Food Insecurity: No Food Insecurity (01/17/2024) Hunger Screening Food Insecurity - Worry: Never True Food Insecurity - Inability: Never True Patient smokes quarter pack per day has close to 40 year history of smoking, only occasional once in a blue kuo alcohol in take, denies illicit drug abuse. Recently tried marijuana gummies few days ago for neck discomfort. FAMILY HISTORY: Family History Problem Relation Age of Onset Heart disease Father Colon cancer Paternal Aunt Heart disease Maternal Grandmother Heart disease Paternal Grandmother Heart disease Paternal Grandfather REVIEW OF SYSTEMS: Fourteen system review of system was negative other than as mentioned in history of presenting illness. OBJECTIVE: Temp: [36.7 C (98.1 F)] 36.7 C (98.1 F) Heart Rate: [75-100] 77 Resp: [11-28] 18 BP: (102-157)/(75-125) 102/86 SpO2: [90 %-100 %] 96 % O2 Device: None (Room air) No intake/output data recorded. No intake/output data recorded. PHYSICAL EXAM: GENERAL: patient awake oriented x 3, does not appear in distress. HEENT: No pallor, no icterus, NECK: supple, CVS: s1,s2 heard no murmurs, rubs or gallops RESPIRATORY: B/l airway entry decreased at the bases with no crackles or wheezing ABDOMINAL: soft non tender, non distended with bowel sounds heard, EXTREMITIES: no pedal edema with peripheral pulses palpable NEURO: Left lower extremity and upper extremity strength 5/5, limited examination of right lower extremity because of pain, able to wiggle his toes, SKIN: no rashes appreciated. LABS: Recent Results (from the past 24 hour(s)) Type and screen(includes indirect yolanda) Collection Time: 01/17/24 5:30 AM Result Value Ref Range ABO O RH Positive Antibody Screen Negative CBC auto differential Collection Time: 01/17/24 5:35 AM Result Value Ref Range White Blood Cells 8.1 4.0 - 11.0 X10E9/L RBC count 4.80 4.10 - 5.70 X10E12/L Hemoglobin 13.7 13.0 - 17.0 g/dL Hematocrit 40.6 39 - 49 % MCV 85 80 - 100 fL MCH 28.6 27 - 34 pg MCHC 33.8 32 - 36 g/dL RDW 16.8 (H) 11.5 - 15.0 % Platelets 99 (L) 150 - 450 X10E9/L MPV 11.1 7 - 12 fL % neutrophils 74.2 % % lymphocytes 17.4 % % monocytes 7.8 % % eosinophils 0.2 % % Basophils 0.4 % Neutrophils Absolute (A) 6.0 1.5 - 6.6 X10E9/L Lymphocytes Absolute 1.4 1.0 - 3.5 X10E9/L Monocytes Absolute 0.6 0 - 0.9 X10E9/L Eosinophils Absolute 0.0 0.0 - 0.4 X10E9/L Basophils Absolute 0.0 0.0 - 0.2 X10E9/L Protime & INR Collection Time: 01/17/24 5:35 AM Result Value Ref Range Protime 12.5 9.8 - 13.2 sec Inr 1.1 0.8 - 1.1 APTT Collection Time: 01/17/24 5:35 AM Result Value Ref Range aPTT 32 26 - 37 sec Comprehensive metabolic panel Collection Time: 01/17/24 5:35 AM Result Value Ref Range Sodium 136 134 - 146 mmol/L Potassium, Bld 3.3 (L) 3.5 - 5.0 mmol/L Chloride 101 98 - 109 mmol/L CO2 25 22 - 32 mmol/L Anion gap 10 5 - 15 mmol/L BUN 17 5 - 23 mg/dL Creatinine 0.95 0.70 - 1.20 mg/dL Glucose 102 (H) 65 - 99 mg/dL Calcium 8.8 8.5 - 10.5 mg/dL Total Protein 6.6 6.0 - 8.0 g/dL Albumin 3.9 3.2 - 5.3 g/dL Alkaline Phosphatase 42 39 - 130 U/L AST 24 0 - 41 U/L ALT 13 0 - 40 U/L Total bilirubin 0.6 0.3 - 1.2 mg/dL eGFR (CKD-EPI)non-race dependent >90 >59 ml/min/1.73sq.m Magnesium Collection Time: 01/17/24 5:35 AM Result Value Ref Range Magnesium 1.3 (L) 1.8 - 2.6 mg/dL Protime & INR Collection Time: 01/17/24 10:18 AM Result Value Ref Range Protime 12.2 9.8 - 13.2 sec Inr 1.0 0.8 - 1.1 APTT Collection Time: 01/17/24 10:18 AM Result Value Ref Range aPTT 30 26 - 37 sec X-RAY RIGHT HIP: Acute, nondisplaced fracture involving the right greater trochanter. Extension through the intertrochanteric region not fully excluded on these images. X-RAY RIGHT KNEE: No acute osseous abnormalities in the right knee. CT RIGHT HIP WITHOUT CONTRAST Acute nondisplaced intertrochanteric right hip fracture. EKG: Sinus rhythm 82 beats per minute with no significant ST elevations or depressions. CXR: Pending. ASSESSMENT AND PLAN: Patient is a 53-year-old male with known Hx/o DM2, HTN, HLD, COPD, Chronic pain disorder, Fibromyalgia, GERD/Esophagitis, Colon cancer s/p sigmoid colectomy, Liver cirrhosis secondary to hepatitis C,Chronic thrombocytopenia, cervical radiculopathy related to C5-C7 herniated disc, chronic constipation, BPH presents with mechanical fall and right hip pain initially to [facility] and transferred to [facility]. 1. Acute nondisplaced intertrochanteric right hip fracture due to mechanical fall. Orthopedic surgery consulted with likely plans for surgery tomorrow. Per RCRI cardiac risk index scores 1 point for insulin dependent diabetes, is class 2 risk with 6% 30 day risk of , VT or cardiac arrest, non prohibitive can proceed with surgery. In settings of liver cirrhosis is CTP class A, MELD score 7, per Vocal-Comstock score has only 0.6%30 day mortality risk, can proceed with surgery. Orders placed per Geriatric hip admissions protocol, with pain management, check ferritin, vitamin B12, folate, pre-albumin, vitamin-D, PTH. PT/OT consult to be followed postop, discharge planning consult. Perioperative antibiotics per ortho team. 2. Hypokalemia, Hypomagnesemia, replace and recheck. 3. Chronic thrombocytopenia in settings of hx/o liver disease. Monitor, Check vitamin B12, Folate levels. 4. Diabetes mellitus type 2 controlled with complications. Check hemoglobin A1c. Lantus 10 units today with convention NovoLog sliding scale coverage, noted patient will be NPO after midnight. Holding Linagliptin/Metformin. 5. Hx/o Liver cirrhosis to Hepatitis C appears compensated. 6. Hx/o COPD not in exacerbation. Albuterol p.r.n.. 7. Hx/o HTN. Controlled. Continue home dose of Coreg/losartan with holding parameters. 8. Hx/o HLD. Continue Lofibra. 9. Hx/o Depression. Stable. Continue Celexa. 10. Hx/o Cervical radiculopathy related to C5-C7 herniated disc. Outpatient follow-up with Neurosurgery as scheduled next week. Continue Gabapentin/Flexeril. 11. Hx/o BPH. Continue Flomax. 12. Chronic constipation. Senna/MiraLax. 13. GERD/Esophagitis. Continue Protonix. 14. DVT prophylaxis. EPC's. Chemical prophylaxis once cleared by Orthopedic surgery team. Rest of medical issues are stable CODE STATUS: FULL CODE. ADDENDUM: Nursing notified me that when patient reached the floor was complaining of low back pain more than usual. X-ray lumbar spine ordered. This note was completed using a voice bioinformatics team member system. Every effort was made to ensure accuracy. However, inadvertent computerized bioinformatics team member errors may be present. [facility] Progress note* Discharge Planning Note - JEWEL Crenshaw - 01/18/2024 10:29 AM EDT Images from the original note were not included. DISCHARGE PLANNING NOTE SW met with patient introduced self & role. Pt was alert, oriented during assessment. Pt was transferred to [facility] from [facility] where pt presented with leg and hip pain s/p fall. Pt states he fell over dog hitting his knee and hip on floor. Pt was found to have closed R hip fracture. Pt will be going to OR today for repair. Pt reports he lives alone in one story apartment with 1 step to enter home. Pt reports he was independent with ADl's and was not using any assistive devices for ambulation prior to admit. No current home care. Pt denied any concern getting or affording medications or food. Pt PCP and pharmacy verified. Pt denied any tobacco, illicit drug use and pt states he rarely drinks alcohol. DC plan TBD: pt would like to go home if possible. Will need therapy to evaluate post op. Pt does live alone, may need SNF vs IPR. SW did discuss possible SNF placement with pt and provided SNF list to pt. Will need transport at dc even if goes home. SW will continue to follow for dc needs. Services Requested: Services Requested Discharge Disposition: (TBD) Does the patient need discharge transportation arranged?: Yes Patient choice offered: Yes List Provided: Yes [facility] List Provided: Long-Term Facility Initial DC Assessment Completed: Yes Patient Goals: Goals: Goals (pt-stated) Evaluation of progress towards goal: possible rehab placement vs home pending progress, recommendations and pt decision - JEWEL Crenshaw 01/18/24 10:33 AM [facility]06-06-2024 Hospital Discharge instructions* Discharge Instructions* Tom Marquez PA-C - 01/18/2024 10:29 AM EDT ORTHOPAEDIC DISCHARGE INSTRUCTIONS Diagnosis: right IT hip fracture Procedure: short IMN right hip Follow-Up Appointment: Dr. Figueroa on 02/01/24 @ 9:30AM Office Location: [facility] [address] [place] [id number] Call 911 immediately if you experience: Chest pain, difficulty breathing, or shortness of breath. Call the office for concerns related to: calf pain, leg swelling, fever/chills, redness or drainagearound the incision sites, prolong numbness/tingling, or increased pain-that is not relieved with medications, ice and elevation. Weight-bearing instructions: Right lower extremity: WBAT, RLE ROM as tolerated Incision care: Keep clean and dry. Replace with clean and dry dressing if applicable. Do not soak submerge or get wounds wet. Do not apply creams or ointments to incision unless instructed to do so. Perform dressing changes after washing her hands and practicing good personal hygiene. Suture and staple care: Do not remove. They will be removed at your postop appointment. Exercises and range of motion: Wiggle (flex and extend) fingers/toes of affected extremity frequently with gentle range of motion. Placed ice bag on affected extremity: 20 minutes on every 2-4 hours. Elevate the affected extremity above the heart to reduce swelling. Medications: Refer to discharge medication reconciliation form for complete discharge medication list. If you have a fracture/broken bone: Avoid NSAIDs/anti-inflammatory medications (example ibuprofen, Advil, Aleve, Motrin) - they may delay bone healing. Vitamins/supplements It is recommended to take Calcium and Vitamin D for bone health. Please refer to the medication reconciliation form for exact doses Pain medications Pain medicine has been prescribed for management of your pain symptoms. Please refer to the medication reconciliation form for exact doses. Prevention of blood clots Many orthopedic conditions can predispose you to blood clots. S medications for prophylaxis against blood clots are appropriate they have been prescribed to you and are present on her medication reconciliation form. Please refer to that form for exact doses. Scopolamine Transderm Patch Patient Education Uses: This skin patch is used to prevent postoperative nausea and vomiting, vomiting and dizziness from motion sickness. How to use: Place one patch behind ear at least 4 hours before the effect is required. While wearing the patch, it slowly releases the medication into your system over a period of time. The patch is effective up to three days. Your patch has been applied to reduce post-operative nausea and vomiting. This side effect relating to anesthesia usually subsides within one day following your surgery. Ifsymptom free (nausea/vomiting) we recommend removal of the patch within 24 to 72 hours. Remove patch within 24 to 72 hours after your surgery or if any side effects as listed below are noted. Fold used patch in half with sticky side together and dispose of in trash out of reach of children or pets. Wash hands immediately after touching patch to prevent drug contact with eyes. Side Effects: This drug may cause drowsiness, headache or dry mouth. These effects should subside as your body adjusts to the medication. If they persist or worsen, inform you doctor. Temporary blurring of vision and dilation (widening) of the pupils may occur, especially if the drug on your hands comes in contact with the eyes. On infrequent occasions disorientation, memory disturbances, dizziness, restlessness, hallucinations, confusion, dry itchy or reddened whites of the eyes and eye pain have been reported. If these effects occur remove the patch and call your doctor. Precautions: Elderly, wide-angle glaucoma, history of seizures or psychosis, impaired hepatic/renalfunction, intestinal obstruction, pyloric or bladder neck obstruction, overactive thyroid, hypertension, allergies to adhesives. Consult doctor if or breast feeding. It isn't known if it appears in breast milk. Since drowsiness, disorientation and confusion may occur, be careful driving, operating donavon dangerous machinery especially when you first start using the drug. Limit alcohol intake. It may intensify drug side effects. Children are very sensitive to this medication and is not recommended. [facility] [place] Plan of care note * Plan of Care - Lian Silva RN - 01/18/2024 9:02 AM EDT Problem: Pain Goal: Patient goal is pain score less than 4, able to rest, and participant in treatment plan as appropriate Description: INTERVENTIONS: 1. Encourage patient or legal charter representative to report early pain and ask for pain medicine when needed 2. Assess pain using appropriate pain scale and include the scale used when documenting 3. Administer analgesics based on type and severity of pain and evaluate response within appropriate time frame 4. Implement non-pharmacological measures as appropriate and evaluate response 5. Consider cultural and social influences on pain and pain management 6. Notify LIP if interventions ineffective or patient reports new pain 7. Monitor vital signs including pulse ox 8. Reassess pain per policy 9. Teach patient or legal charter representative interventions for comforting Outcome: Progressing Note: Evaluation of progress towards goal: Verbalizes adequate comfort level. Please see MAR for pain management orders. Problem: Safety Goal: Patient will be injury free during hospitalization Description: INTERVENTIONS: 1. Assess patient's risk for falls and implement fall prevention plan of care per policy 2. Provide and maintain a safe environment 3. Proper use of double Identifiers 4. Medication administration using the 5 rights 5. Hand hygiene 6. Specimens are labeled at the bedside 7. Instruct patient/ patient charter representative about use of safety devices 8. Include patient/ patient charter representative in decisions related to safety Outcome: Progressing Note: Evaluation of progress towards goal: Proper identifiers used with patient care and medicationadministration. Remains free of injury during shift. Problem: Infection Goal: Absence of infection during hospitalization Description: Interventions: 1. Assess and monitor for signs and symptoms of infection 2. Monitor lab/diagnostic results 3. Monitor all insertion sites i.e., indwelling lines, tubes and drains 4. Monitor endotracheal (as able) and nasal secretions for changes in amount and color 5. Administer medications as ordered 6. Instruct and encourage patient and family to use good hand hygiene technique 7. Identify and instruct patient/patient charter representative in use of appropriate isolation precautionsfor identified infection/symptoms 8. Provide and discuss with patient/patient charter representative on educational MDRO sheet 9. Encourage and monitor nutritional status daily and consult maxillofacial pathology if indicated 10. Implement neutropenic guidelines as needed 11. Review exposure to history of communicable disease and recent travel history on admission 12. Encourage annual influenza vaccine 13. Encourage pneumonia vaccine Outcome: Progressing Note: Evaluation of progress towards goal: Skin integrity remains in stable condition; remains w/o ss of infection, fever, pain, or increased discomfort. Problem: Knowledge Deficit Goal: Patient/patient charter representative demonstrates understanding of disease process, treatment plan,medications, and discharge instructions Description: INTERVENTIONS 1. Complete learning assessment and assess knowledge base 2. Provide teaching at level of understanding 3. Provide teaching via preferred learning method(s) Outcome: Progressing Note: Evaluation of progress towards goal: Verbalizes understanding of current treatment plan as educated. Will continue to educate for understanding. Problem: Discharge Planning Goal: Discharge to post-acute care, other facility, or home with appropriate resources Description: Patient's goal is: INTERVENTIONS 1. Conduct assessment to determine patient/family and health care team treatment goals, and need for post-acute services based on payer coverage, community resources, and patient preferences, and barriers to discharge 2. Coordinate with Social work, Care Navigation, and Utilization Review to arrange appropriate level of services according to patient's needs based on patient preference and payer coverage in collaboration with the physician and health care team 3. Address psychosocial, clinical, and financial barriers to discharge as identified in assessment in conjunction with the patient/family and health care team 4. Consult appropriate ancillary services (i.e.. PT/OT/ST, etc) as needed 5. Communicate with and update the patient/family, physician, and health care team regarding progress on the discharge plan 6. Identify discharge learning needs (meds, wound care, etc). 7. Arrange for needed discharge transportation as appropriate Outcome: Progressing Note: Evaluation of progress towards goal: Discharge planning in process; will continue to monitor for discharge needs. Problem: Glucose Imbalance Goal: Clinical indication of glucose balance is achieved Description: Patient's goal is: INTERVENTIONS 1. Monitor blood glucose levels as ordered 2. Administer medications as ordered 3. Notify physician of ineffective treatment plan Outcome: Progressing Note: Evaluation of progress towards goal: Lab values monitored per shift; replacements provided asneeded or required. Will continue to monitor electrolyte values. Goal: Patient's discharge needs are met Description: Patient's goal is: INTERVENTIONS 1. Assess patient for self-management skills 2. Encourage participation in diabetes management 3. Identify potential discharge barriers on admission and throughout hospital stay 4. Involve patient/S.O. in discharge planning process 5. Communicate referral to special educator as appropriate 6. Communicate referral to maxillofacial pathology as appropriate 7. Collaborate with case management/social worker health services for discharge needs Outcome: Progressing Note: Evaluation of progress towards goal: Discharge planning in process; will continue to monitor for discharge needs. Problem: Moderate - High Risk Fall Score Description: Arredondo Fall Score of =/> 25 or indicated by [facility] Assessment Goal: Patient should be free from fall Description: Interventions: 1. [place] to environment 2. Hourly rounds addressing the 4 P's (Pain, Positioning, Possessions, Potty) 3. Clear area of hazards (spills, clutter, electrical cords, unnecessary equipment) 4. Place equipment (bed & TV controls, call light, phone, urinal) within reach 5. Encourage patient to wear glasses and hearing aides as appropriate 6. Maintain bed in lowest position 7. Lock wheels on bed/wheelchair 8. Provide adequate lighting, including night light 9. Assess need for additional bedding, food/fluids, pain med's prior to sleep/routinely 10. Provide gripper slippers or personal non-skid footwear 11. Teach patient and patient charter representative to maintain environment for safety and engage in all aspects of fall prevention program 12. Remind patient to call for help before getting out of bed 13. Initiate bed/chair/exit alarms supportive devices as appropriate, (chair wedge, no-skid floor mat, raised edge mattress, hip protectors) 14. Locate patient bed assignment for optimal visualization 15. Evaluate and identify Safe Patient Handling Equipment needs 16. Provide supervision when out of bed or chair 17. Utilize gait belt as needed to assist with ambulation 18. Place adaptive equipment (cane, walker) within reach 19. Request patient charter representative bring adaptive equipment/mobility aids from home or obtain and provide as needed 20. Consult pharmacy regarding effects of med's affecting mobility, cognition, and alternatives 21. Obtain physician order for PT if risk factors associated with mobility are present 22. Obtain physician order for OT as appropriate 23. Utilize diversional activities 24. Educate patient and patient charter representative how to maintain a safe environment during visitationtimes (notify nurse prior to leaving bedside) 25. Consider appropriateness of medical or non-medical librarian 26. Set up voiding schedule as appropriate (every 2 hours) Outcome: Progressing Note: Evaluation of progress towards goal: Call light within reach. Remains free of fall or injury.Environment free of clutter. [facility]06-06-2024 Nurse Note* Gin Palm RN - 01/18/2024 7:49 AM EDT [facility], awaiting transport. Patient denies any needs at this time. [facility]06-06-2024 Progress note* PT/OT/THERMAL SURFACING MACHINE OPERATOR - ALICIA Chavira - 01/18/2024 7:39 AM EDT Occupational Therapy CANCEL - Deferred Orders received for OT evaluation. Pt scheduled for hip fracture repair this date. Will check back post op [facility]06-06-2024 Plan of care note* Plan of Care - Carin Contreras RN - 01/18/2024 5:30 AM EDT Problem: Moderate - High Risk Fall Score Description: Arredondo Fall Score of =/> 25 or indicated by [facility] Assessment Goal: Patient should be free from fall Description: Interventions: 1. [place] to environment 2. Hourly rounds addressing the 4 P's (Pain, Positioning, Possessions, Potty) 3. Clear area of hazards (spills, clutter, electrical cords, unnecessary equipment) 4. Place equipment (bed & TV controls, call light, phone, urinal) within reach 5. Encourage patient to wear glasses and hearing aides as appropriate 6. Maintain bed in lowest position 7. Lock wheels on bed/wheelchair 8. Provide adequate lighting, including night light 9. Assess need for additional bedding, food/fluids, pain med's prior to sleep/routinely 10. Provide gripper slippers or personal non-skid footwear 11. Teach patient and patient charter representative to maintain environment for safety and engage in all aspects of fall prevention program 12. Remind patient to call for help before getting out of bed 13. Initiate bed/chair/exit alarms supportive devices as appropriate, (chair wedge, no-skid floor mat, raised edge mattress, hip protectors) 14. Locate patient bed assignment for optimal visualization 15. Evaluate and identify Safe Patient Handling Equipment needs 16. Provide supervision when out of bed or chair 17. Utilize gait belt as needed to assist with ambulation 18. Place adaptive equipment (cane, walker) within reach 19. Request patient charter representative bring adaptive equipment/mobility aids from home or obtain and provide as needed 20. Consult pharmacy regarding effects of med's affecting mobility, cognition, and alternatives 21. Obtain physician order for PT if risk factors associated with mobility are present 22. Obtain physician order for OT as appropriate 23. Utilize diversional activities 24. Educate patient and patient charter representative how to maintain a safe environment during visitationtimes (notify nurse prior to leaving bedside) 25. Consider appropriateness of medical or non-medical librarian 26. Set up voiding schedule as appropriate (every 2 hours) Outcome: Progressing Note: Evaluation of progress towards goal: Patient remains fall free at this time. Fall precautionsin place. [facility]06-05-2024 Emergency department Note* Michelle De La O RN - 01/17/2024 3:02 PM EDT Bed: 34 Expected date: Expected time: Means of arrival: Comments: B1 [place]-- pt still in room, should be headed up shortly [facility]06-05-[facility]24 Emergency department Note* Vivek Harrison RN - 01/17/2024 3:02 PM EDT Bed: 33 Expected date: Expected time: Means of arrival: Comments: T4 [facility]06-05-[facility]24 Emergency department Note* Michelle De La O RN - 01/17/2024 3:02 PM EDT Bed: 34 Expected date: Expected time: Means of arrival: Comments: B1 [facility]-- pt still in room, should be headed up shortly * Vivek Harrison RN - 01/17/2024 3:02 PM EDT Bed: 33 Expected date: Expected time: Means of arrival: Comments: T4 * Coral Sanford RN - 01/17/2024 10:38 AM EDT Per manav Redding PA, pt will go to surgery 01/17. * Vivek Harrison RN - 01/17/2024 10:01 AM EDT Bed: B1 Expected date: Expected time: Means of arrival: [facility] Comments: 53 YO M [place] [facility] Ruth Smith 53 yrs M (1970) [facility] tripped over dog has non displaced hip fracture Dr Jenkins wants to plan surgery today, Dr Wahl ED med control updated on patient also Palacios placed with 2L output Dilaudid given 121/91 80 HR 99%RA RR 16 EMS 82 HR 96%RA 127/87 ETA 15 min documented in this encounterCommunity [facility] HospitalComplix [facility] [id number] History and physical note* Stephen Hannah MD - 01/17/2024 11:03 AM EDT Principal Problem: Closed fracture of right hip, initial encounter ([facility] CHIEF COMPLAINT: Right hip pain SUBJECTIVE: Patient is a 53-year-old male with known Hx/o DM2, HTN, HLD, COPD, Chronic pain disorder, Fibromyalgia, GERD/Esophagitis, Colon cancer s/p sigmoid colectomy, Liver cirrhosis secondary to hepatitis C,Chronic thrombocytopenia, cervical radiculopathy related to C5-C7 herniated disc presents with mechanical fall and right hip pain initially to [facility] and transferred to [facility]. Patient awake oriented x3 does not be in distress, tripped over a dog and landed on his right knee on a hard tile floor thereafter started having right knee and right hip pain presently controlled with medications. Patient mentions initially it knocked him off and he was short of breath when he could not catch his breath for few minutes. Presently denies any shortness of breath. Patient complains of chronic numbness and tingling in arms and legs and recently being evaluated for cervical radiculopathy symptoms because of herniated disc was supposed to see neurosurgeon next week. Patient has chronic rhinorrhea related to seasonal allergies. Patient denies chest pain, palpitations, syncope, near-syncope, URTI symptoms, headache, visual complaints, earache or ear discharge, dysarthria, dysphagia, focal weakness, fever or chills, abdominalpain, diarrhea, nausea, vomiting, weight loss, hemoptysis, hematemesis, hematochezia, melena, dysuria, urgency, frequency, hematuria, PAST MEDICAL HISTORY: Past Medical History: Diagnosis Date Asthma Back pain Chronic cough Chronic pain disorder Colon cancer (CMS-HCC) Colon cancer (CMS-HCC) Depression Diabetes mellitus type 2, controlled (CMS-HCC) Fibromyalgia, primary GERD (gastroesophageal reflux disease) Hyperlipidemia Hypertension Insulin-treated type 2 diabetes mellitus (CMS-HCC) Joint pain Kidney stones Liver disease Low back pain Neck pain Obesity Osteoarthritis Visual impairment Hx/o Hepatitis-C previously treated in 2017. Cervical radiculopathy related to herniated disc C5-7. PAST SURGICAL HISTORY: Past Surgical History: Procedure Laterality Date BACK SURGERY COLON SURGERY resection, 2018, [facility] DAVINCI REPAIR HERNIA VENTRAL N/A 10/27/2021 Performed by Ridge Cedillo MD at [facility] pt had all teeth removed HERNIA REPAIR x's 2 ORTHOPEDIC SURGERY 2007 foot, infected foot HOME MEDICATIONS: Home medications were reviewed. ALLERGIES: No Known Allergies SOCIAL HISTORY: Social History Socioeconomic History Marital status: Single Tobacco Use Smoking status: Every Day Current packs/day: 0.50 Average packs/day: 0.5 packs/day for 20.0 years (10.0 ttl pk-yrs) Types: Cigarettes Smokeless tobacco: Never Substance and Sexual Activity Alcohol use: No Drug use: No Sexual activity: Defer Social Determinants of Health Food Insecurity: No Food Insecurity (01/17/2024) Hunger Screening Food Insecurity - Worry: Never True Food Insecurity - Inability: Never True Patient smokes quarter pack per day has close to 40 year history of smoking, only occasional once in a blue kuo alcohol in take, denies illicit drug abuse. Recently tried marijuana gummies few days ago for neck discomfort. FAMILY HISTORY: Family History Problem Relation Age of Onset Heart disease Father Colon cancer Paternal Aunt Heart disease Maternal Grandmother Heart disease Paternal Grandmother Heart disease Paternal Grandfather REVIEW OF SYSTEMS: Fourteen system review of system was negative other than as mentioned in history of presenting illness. OBJECTIVE: Temp: [36.7 C (98.1 F)] 36.7 C (98.1 F) Heart Rate: [75-100] 77 Resp: [11-28] 18 BP: (102-157)/(75-125) 102/86 SpO2: [90 %-100 %] 96 % O2 Device: None (Room air) No intake/output data recorded. No intake/output data recorded. PHYSICAL EXAM: GENERAL: patient awake oriented x 3, does not appear in distress. HEENT: No pallor, no icterus, NECK: supple, CVS: s1,s2 heard no murmurs, rubs or gallops RESPIRATORY: B/l airway entry decreased at the bases with no crackles or wheezing ABDOMINAL: soft non tender, non distended with bowel sounds heard, EXTREMITIES: no pedal edema with peripheral pulses palpable NEURO: Left lower extremity and upper extremity strength 5/5, limited examination of right lower extremity because of pain, able to wiggle his toes, SKIN: no rashes appreciated. LABS: Recent Results (from the past 24 hour(s)) Type and screen(includes indirect yolanda) Collection Time: 01/17/24 5:30 AM Result Value Ref Range ABO O RH Positive Antibody Screen Negative CBC auto differential Collection Time: 01/17/24 5:35 AM Result Value Ref Range White Blood Cells 8.1 4.0 - 11.0 X10E9/L RBC count 4.80 4.10 - 5.70 X10E12/L Hemoglobin 13.7 13.0 - 17.0 g/dL Hematocrit 40.6 39 - 49 % MCV 85 80 - 100 fL MCH 28.6 27 - 34 pg MCHC 33.8 32 - 36 g/dL RDW 16.8 (H) 11.5 - 15.0 % Platelets 99 (L) 150 - 450 X10E9/L MPV 11.1 7 - 12 fL % neutrophils 74.2 % % lymphocytes 17.4 % % monocytes 7.8 % % eosinophils 0.2 % % Basophils 0.4 % Neutrophils Absolute (A) 6.0 1.5 - 6.6 X10E9/L Lymphocytes Absolute 1.4 1.0 - 3.5 X10E9/L Monocytes Absolute 0.6 0 - 0.9 X10E9/L Eosinophils Absolute 0.0 0.0 - 0.4 X10E9/L Basophils Absolute 0.0 0.0 - 0.2 X10E9/L Protime & INR Collection Time: 01/17/24 5:35 AM Result Value Ref Range Protime 12.5 9.8 - 13.2 sec Inr 1.1 0.8 - 1.1 APTT Collection Time: 01/17/24 5:35 AM Result Value Ref Range aPTT 32 26 - 37 sec Comprehensive metabolic panel Collection Time: 01/17/24 5:35 AM Result Value Ref Range Sodium 136 134 - 146 mmol/L Potassium, Bld 3.3 (L) 3.5 - 5.0 mmol/L Chloride 101 98 - 109 mmol/L CO2 25 22 - 32 mmol/L Anion gap 10 5 - 15 mmol/L BUN 17 5 - 23 mg/dL Creatinine 0.95 0.70 - 1.20 mg/dL Glucose 102 (H) 65 - 99 mg/dL Calcium 8.8 8.5 - 10.5 mg/dL Total Protein 6.6 6.0 - 8.0 g/dL Albumin 3.9 3.2 - 5.3 g/dL Alkaline Phosphatase 42 39 - 130 U/L AST 24 0 - 41 U/L ALT 13 0 - 40 U/L Total bilirubin 0.6 0.3 - 1.2 mg/dL eGFR (CKD-EPI)non-race dependent >90 >59 ml/min/1.73sq.m Magnesium Collection Time: 01/17/24 5:35 AM Result Value Ref Range Magnesium 1.3 (L) 1.8 - 2.6 mg/dL Protime & INR Collection Time: 01/17/24 10:18 AM Result Value Ref Range Protime 12.2 9.8 - 13.2 sec Inr 1.0 0.8 - 1.1 APTT Collection Time: 01/17/24 10:18 AM Result Value Ref Range aPTT 30 26 - 37 sec X-RAY RIGHT HIP: Acute, nondisplaced fracture involving the right greater trochanter. Extension through the intertrochanteric region not fully excluded on these images. X-RAY RIGHT KNEE: No acute osseous abnormalities in the right knee. CT RIGHT HIP WITHOUT CONTRAST Acute nondisplaced intertrochanteric right hip fracture. EKG: Sinus rhythm 82 beats per minute with no significant ST elevations or depressions. CXR: Pending. ASSESSMENT AND PLAN: Patient is a 53-year-old male with known Hx/o DM2, HTN, HLD, COPD, Chronic pain disorder, Fibromyalgia, GERD/Esophagitis, Colon cancer s/p sigmoid colectomy, Liver cirrhosis secondary to hepatitis C,Chronic thrombocytopenia, cervical radiculopathy related to C5-C7 herniated disc, chronic constipation, BPH presents with mechanical fall and right hip pain initially to [facility] and transferred to [facility]. 1. Acute nondisplaced intertrochanteric right hip fracture due to mechanical fall. Orthopedic surgery consulted with likely plans for surgery tomorrow. Per RCRI cardiac risk index scores 1 point for insulin dependent diabetes, is class 2 risk with 6% 30 day risk of , VT or cardiac arrest, non prohibitive can proceed with surgery. In settings of liver cirrhosis is CTP class A, MELD score 7, per Vocal-Comstock score has only 0.6%30 day mortality risk, can proceed with surgery. Orders placed per Geriatric hip admissions protocol, with pain management, check ferritin, vitamin B12, folate, pre-albumin, vitamin-D, PTH. PT/OT consult to be followed postop, discharge planning consult. Perioperative antibiotics per ortho team. 2. Hypokalemia, Hypomagnesemia, replace and recheck. 3. Chronic thrombocytopenia in settings of hx/o liver disease. Monitor, Check vitamin B12, Folate levels. 4. Diabetes mellitus type 2 controlled with complications. Check hemoglobin A1c. Lantus 10 units today with convention NovoLog sliding scale coverage, noted patient will be NPO after midnight. Holding Linagliptin/Metformin. 5. Hx/o Liver cirrhosis to Hepatitis C appears compensated. 6. Hx/o COPD not in exacerbation. Albuterol p.r.n.. 7. Hx/o HTN. Controlled. Continue home dose of Coreg/losartan with holding parameters. 8. Hx/o HLD. Continue Lofibra. 9. Hx/o Depression. Stable. Continue Celexa. 10. Hx/o Cervical radiculopathy related to C5-C7 herniated disc. Outpatient follow-up with Neurosurgery as scheduled next week. Continue Gabapentin/Flexeril. 11. Hx/o BPH. Continue Flomax. 12. Chronic constipation. Senna/MiraLax. 13. GERD/Esophagitis. Continue Protonix. 14. DVT prophylaxis. EPC's. Chemical prophylaxis once cleared by Orthopedic surgery team. Rest of medical issues are stable CODE STATUS: FULL CODE. ADDENDUM: Nursing notified me that when patient reached the floor was complaining of low back pain more than usual. X-ray lumbar spine ordered. This note was completed using a voice bioinformatics team member system. Every effort was made to ensure accuracy. However, inadvertent computerized bioinformatics team member errors may be present. [employer] Work Phone: [phone] Consult note* Ang Figueroa MD - 01/17/2024 10:58 AM EDT Images from the original note were not included. Chief complaint: right hip pain HPI: Ruth Smith is a 53 y.o. male [facility] c/o right hip pain after a fall. Patient states that he was helping his neighbor take his blood pressure and tripped and fell over his dog. Patient admits to pain to right hip. Patient denies pain to right knee, ankle, foot. Patient denies pain to upper extremities. 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 Patient was seen at outside hospital and was transferred to [facility]. Patient has no other complaints at this time. Date of injury was 01/16/24. Pain is described as Sharp, localized to his right hip. He does not have associated injuries. He is having any numbness or tingling. Pain is improved with rest; and worsened by movement, activity, and dependent positioning Past Medical History: Diagnosis Date Asthma Back pain Chronic cough Chronic pain disorder Colon cancer (CMS-HCC) Colon cancer (CMS-HCC) Depression Diabetes mellitus type 2, controlled (CMS-HCC) Fibromyalgia, primary GERD (gastroesophageal reflux disease) Hyperlipidemia Hypertension Insulin-treated type 2 diabetes mellitus (CMS-HCC) Joint pain Kidney stones Liver disease Low back pain Neck pain Obesity Osteoarthritis Visual impairment Past Surgical History: Procedure Laterality Date BACK SURGERY COLON SURGERY resection, 2018, [facility] DAVINCI REPAIR HERNIA VENTRAL N/A 10/27/2021 Performed by Ridge Cedillo MD at [facility] DENTAL SURGERY pt had all teeth removed HERNIA REPAIR x's 2 ORTHOPEDIC SURGERY 2008 foot, infected foot Social History Tobacco Use Smoking status: Every Day Current packs/day: 0.50 Average packs/day: 0.5 packs/day for 20.0 years (10.0 ttl pk-yrs) Types: Cigarettes Smokeless tobacco: Never Substance Use Topics Alcohol use: No Drug use: No Family History Problem Relation Age of Onset Heart disease Father Colon cancer Paternal Aunt Heart disease Maternal Grandmother Heart disease Paternal Grandmother Heart disease Paternal Grandfather Allergies as of 01/17/2024 (No Known Allergies) Current Facility-Administered Medications: HYDROmorphone (PF) (DILAUDID) injection 1 mg, 1 mg, intravenous, Q2H PRN, Geoffrey Mckee DO, 1 mg at 01/17/24 1023 sodium chloride 0.9 % infusion, 250 mL/hr, intravenous, Continuous, Geoffrey Mckee DO, Last Rate: 250 mL/hr at 01/17/24 1034, 250 mL/hr at 01/17/24 1034 Current Outpatient Medications: acetaminophen (TYLENOL EXTRA STRENGTH) 500 mg tablet, Take 2 tablets (1,000 mg total) by mouth every 6 (six) hours., Disp: 30 tablet, Rfl: 0 albuterol (PROVENTIL HFA;VENTOLIN HFA) 90 mcg/actuation inhaler, Inhale 2 puffs every 6 (six) hoursas needed for wheezing., Disp: , Rfl: citalopram (CeleXA) 20 mg tablet, Take 20 mg by mouth daily Indications: major depressive disorder., Disp: , Rfl: cyclobenzaprine (FLEXERIL) 10 mg tablet, Take 1 tablet (10 mg total) by mouth 2 (two) times a day as needed for muscle spasms., Disp: 10 tablet, Rfl: 0 fenofibrate (LOFIBRA) 160 mg tablet, Take 160 mg by mouth daily., Disp: , Rfl: gabapentin (NEURONTIN) 300 mg capsule, Take 300 mg by mouth 3 (three) times a day Indications: neuropathic pain. , Disp: , Rfl: HUMALOG KWIKPEN INSULIN 100 unit/mL insulin pen, Inject 18 Units under the skin 3 (three) times a day with meals. , Disp: , Rfl: 0 ibuprofen (ADVIL,MOTRIN) 800 mg tablet, Take 1 tablet (800 mg total) by mouth every 6 (six) hours as needed for pain., Disp: 30 tablet, Rfl: 0 insulin glargine (LANTUS) 100 unit/mL (3 mL) insulin pen, Inject 45 Units under the skin nightly. ,Disp: , Rfl: linagliptin-metFORMIN 2.5-1,000 mg tablet, Take by mouth 2 (two) times daily at 0800 and 1500. , Disp: , Rfl: lisinopriL (PRINIVIL,ZESTRIL) 40 mg tablet, Take 40 mg by mouth daily Indications: high blood pressure., Disp: , Rfl: metoprolol succinate XL (TOPROL-XL) 50 mg 24 hr tablet, Take 50 mg by mouth 2 (two) times a day., Disp: , Rfl: ondansetron (ZOFRAN) 8 mg tablet, Take 8 mg by mouth every 8 (eight) hours as needed for nausea or vomiting. , Disp: , Rfl: pantoprazole (PROTONIX) 40 mg EC tablet, Take 40 mg by mouth daily., Disp: , Rfl: polyethylene glycol (GLYCOLAX) 17 gram packet, Take 17 g by mouth in the morning and 17 g before bedtime., Disp: 30 packet, Rfl: 1 sennosides-docusate sodium (SENOKOT-S) 8.6-50 mg, Take 2 tablets by mouth in the morning and 2 tablets before bedtime., Disp: 60 tablet, Rfl: 1 sucralfate (CARAFATE) 1 gram tablet, Take 1 g by mouth 4 (four) times a day., Disp: , Rfl: tamsulosin (FLOMAX) 0.4 mg capsule, Take 0.4 mg by mouth nightly. , Disp: , Rfl: 0 traZODone (DESYREL) 50 mg tablet, Take 50 mg by mouth nightly., Disp: , Rfl: UNIFINE PENTIPS PLUS 31 gauge x 1/4 needle, use four times a day as directed, Disp: , Rfl: 0 VIBERZI 100 mg tablet, Take 100 mg by mouth 2 (two) times a day with meals., Disp: , Rfl: REVIEW OF SYSTEMS: MSK: Positive for right hip pain, Neuro: Negative for numbness or tingling, All other ROS negative (10 systems reviewed) PHYSICAL EXAM: Vitals: BP 102/86 Pulse 77 Temp 36.7 C (98.1 F) (Oral) Resp 18 Ht 180.3 cm (5' 11 ) Wt 113.4 kg (250 lb) SpO2 96% BMI 34.87 kg/m General: Well-nourished, Well-developed and Age appropriate LOC: awake and alert Orientation: oriented to person, place, time, and recent events Psych: Pleasant and [place] Station: Lying supine on hospital bed HEENT: normocephalic, atraumatic head, neck, & facies, no ecchymosis or abrasions, midline trachea Resp: no respiratory distress, acyanotic, normal RR, breathing easily, nonlabored, no use of accessory muscles Musculoskeletal: right Lower Extremity: Observation: No obvious gross deformity noted to right LE. Skin: intact without warmth, erythema, lesions, cuts, or abrasions. Palpation: +TTP to right hip. Non-tender to knee, ankle, foot. No palpable gross step offs or crepitus. Positive log roll. ROM: Hip/knee: Unable to assess due to known hip fracture Ankle: AROM neutral to full DF, AROM neutral to full PF Foot: Full AROM flexion 1-5 digits, full AROM extension 1-5 digits Neurovascular: 2+ palpable DP and PT pulses. Toes pink and warm with cap refill <2 seconds. Fullsensation to light touch pressure and pain DP/SP/Tibial/Sural/Saphenous nerve innervations right foot. Compartments: Thigh/anterior tibial/calf compartments soft and compressible. IMAGING: I personally viewed X-ray of right hip - Cursory exam reveals right nondisplaced intertrochanteric fracture. No other acute osseous abnormalities noted. I personally viewed CT of right hip - Cursory exam reveals right nondisplaced intertrochanteric fracture. No other acute osseous abnormalities noted. Imaging: CT hip right without contrast Result Date: 01/17/2024 CT right hip without contrast HISTORY: Fracture COMPARISON: Radiograph earlier same day TECHNIQUE: CT right hip without contrast performed according to standard protocol. FINDINGS: Acute fracture extending from the right greater trochanter through the intertrochanteric region. No displacement. Hip joint intact. No additional fractures. Soft tissue structures are unremarkable. IMPRESSION: * Acute nondisplaced intertrochanteric right hip fracture. All CT scans at this facility use dose modulation, iterative reconstruction, and/or weight based dosing when appropriate to reduce radiation dose to as low as reasonably achievable. Finalized by Sylvester Collins MD on 01/17/2024 4:37 AM X-ray hip right 2-3 views with or without pelvis Result Date: 01/17/2024 XR HIP RT 2-3 VIEWS W OR WO PELVIS HISTORY: Hip pain, fall, injury COMPARISON: None FINDINGS: AP and lateral views of the right hip with an AP pelvis view obtained. Acute, nondisplaced fracture involving the right greater trochanter. There is no destructive osseous lesion. The joint space is well maintained without degenerative changes. The osseous structures are well mineralized. IMPRESSION: * Acute, nondisplaced fracture involving the right greater trochanter. Extension through the intertrochanteric region not fully excluded on these images. Approved by Resident: Singh Melgar DO on 01/17/2024 3:49 AM I, Sylvester Collins MD have personally reviewed the image(s) and agree with and/or edited the report Finalized by Sylvester Collins MD on 01/17/2024 3:54 AM X-ray knee right 1 or 2 views Result Date: 01/17/2024 2 VIEWS RIGHT KNEE HISTORY: Fall, pain COMPARISON: None FINDINGS: Chondrocalcinosis. No acute fracture. No dislocation. IMPRESSION: No acute osseous abnormalities in the right knee. Finalized by Sylvester Collins MD on 01/17/2024 3:49 AM LABS: Lab Results Component Value Date WBC 8.1 01/17/2024 HGB 13.7 01/17/2024 HCT 40.6 01/17/2024 MCV 85 01/17/2024 PLT 99 (L) 01/17/2024 Lab Results Component Value Date GLU 102 (H) 01/17/2024 CALCIUM 8.8 01/17/2024 K 3.3 (L) 01/17/2024 CO2 25 01/17/2024 BUN 17 01/17/2024 CREATININE 0.95 01/17/2024 No results found for: VITD25 Lab Results Component Value Date INR 1.0 01/17/2024 INR 1.1 01/17/2024 INR 1.0 10/13/2021 PROTIME 12.2 01/17/2024 PROTIME 12.5 01/17/2024 PROTIME 12.0 10/13/2021 DIAGNOSIS: 1) Ruth Smith is a 53 y.o. male with right intertrochanteric hip fracture ASSESSMENT/PLAN: - Patient d/w Dr. Figueroa. - Patient to remain NWB right lower extremity at all times. - Ice and elevation of affected extremity at all times. - N/V checks - per protocol - Pain control - per primary - DVT Prophylaxis - per primary - NPO midnight. Plan for operative stabilization 01/18/2024 pending medical clearance - Attending to see Please contact ortho hot pager for any questions/concerns [phone] LUIS MCCARTHY PA-C 01/17/24 1112 I, ANG FIGUEROA MD, personally performed the face to face diagnostic evaluation on this patient. My findings are as follows: Patient seen evaluated in the emergency department. He was transferred from [place] for orthopedic care to [place]. He had a mechanical fall resulting in a right hip injury. He has multitude of comorbidities including diabetes hypertension history of cancer. I discussed with him his injury and the plan for surgical intervention. We are tentatively planning for this tomorrow with Dr. Lanza for operative stabilization of his hip. Discussed with the standard risks benefits alternatives. We will plan for surgery tomorrow. Complete medical workup and optimization for the medical standpoint. Ang Figueroa MD. [employer] [id number] Progress note* Situational Awareness - Jeff Martin MD - 01/17/2024 10:57 AM EDT ED called Report to [facility] for Admission Pt transferred to for Ortho, morbid obesity, fall with hip fracture requiring OR, plan for tomorrow. Background HLD, IDDM2. No h/o CAD. Reported no other hemodynamic or acute medical concerns at this time. JEFF MARTIN MD [employer] Work Phone: [phone] Emergency department Note* Coral Sanford RN - 01/17/2024 10:38 AM EDT Per manav Redding PA, pt will go to surgery 01/17. [facility]06-05-2024 Emergency department Note* Vivek Harrison RN - 01/17/2024 10:01 AM EDT Bed: B1 Expected date: Expected time: [facility]: 53 Y[facility] [place] transfer Ruth Smith 53 yrs M (1970) [place] ER tripped over dog has non displaced hip fracture Dr Jenkins wants to plan surgery today, Dr Wahl ED med control updated on patient also Palacios placed with 2L output Dilaudid given 121/91 80 HR 99%RA RR 16 EMS 82 HR 96%RA 127/87 ETA 15 min [facility]01-16-2024 Evaluation note* Encounter Date Diagnosis Assessment Notes Treatment Notes Treatment Clinical Notes Aug, Irritable bowel syndrome with diarrhea (ICD-10 - K58.0) [facility] Other 12-28-2023 Evaluation note* Encounter Date Diagnosis Assessment Notes Treatment Notes Treatment Clinical Notes Jul, GERD (gastroesophageal reflux disease) (ICD-10 - K21.9) [facility] Other 10-30-2023 Evaluation note* Encounter Date Diagnosis Assessment Notes Treatment Notes Treatment Clinical Notes May, Irritable bowel syndrome with diarrhea (ICD-10 - K58.0) [facility] Other 09-19-2023 Evaluation note* Encounter Date Diagnosis Assessment Notes Treatment Notes Treatment Clinical Notes Apr, GERD (gastroesophageal reflux disease) (ICD-10 - K21.9) [facility] Other 08-08-2023 Procedure [facility]07-19-2023 Evaluation note* Encounter Date Diagnosis Assessment Notes Treatment Notes Treatment Clinical Notes Feb, Cirrhosis of liver without ascites, unspecified hepatic cirrhosis type (ICD-10 - K74.60) will proceed with liver Ultrasound for screening. Feb, Irritable bowel syndrome with diarrhea (ICD-10 - K58.0) Patient doing well on the Viberzi. States he only a couple a days a months where he has any issues. Feb, History of colon cancer (ICD-10 - Z85.038) Feb, GERD (gastroesophageal reflux disease) (ICD-10 - K21.9) Patient has been having recent breakthrough 2-3 times a week. Will increase pantoprazole to twice daily. Feb, Hep C w/o coma, chronic (ICD-10 - B18.2) Feb, Other Records release for blood work from PCP. [facility] Other 01-11-2023 Evaluation note* Encounter Date Diagnosis Assessment Notes Treatment Notes Treatment Clinical Notes Aug, Sacroiliitis (ICD-10 - M46.1) 52 year old male here for follow up and medication refill for chronic pain. He voices continued complaints of low back pain with radiation to the buttocks. He also notes intermittent radiation to the inner and posterior aspect of the right mid thigh. He notes his legs go numb when he sits. He also voices complaints of neck pain with radiation to the back of the head. He states he has had a headache daily for the last month. He also notes an intermittent tingling sensation to the bilateral hands. He states he went to the ED on 08/19 due to feeling light headed and dizzy. He had an elevated blood pressure. All tests were negative. He is requesting a refill of Percocet today. Different treatment options were discussed in detail with patient in regards to patients condition. He is encouraged to follow up with Dr Moeller to discuss interventional options in the future as he feels he is unable to tell if he had any relief following the sacroiliac joint injections. In the meantime, I encouraged the patinet to continue taking medications as prescribed and I will refill his Percocet today as he feels this provides an element of relief. Aug, Cervical spondylosis (ICD-10 - M47.812) Continue taking medications as prescribed. Aug, Chronic pain (ICD-10 - G89.29) Patient has continued need for Percocet. OARRS report processed and reviewed and shows no violations. 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 Percocet was refilled today, opioid risk assessment was done as well as pill count. Patient is compliant with opioid medication. The patient denies any opioid related side effects. Patient states his Gabapentin was filled by the pharmacy without his knowledge by his PCP and he picked this up by mistake. He was encouraged to have this filled only by 1 provider in the future. Aug, Other UDS performe d through [facility] today, will await confirmatory results. [facility] Other 01-06-2023 Evaluation note* Encounter Date Diagnosis Assessment Notes Treatment Notes Treatment Clinical Notes Aug, Sacroiliitis (ICD-10 - M46.1) 52 year old male evaluated via virtual visit for follow up status post bilateral sacroiliac joint injection under fluoroscopic guidance. Patient is unable to verbalize percentage of pain relief or improved functions following procedure. He continues to complain of low back pain with intermittent radiation to the buttocks. He denies any procedure related complications. He also voices complaints of neck pain. Anatomy of spine discussed in detail with patient in regards to patients condition. I recommend patient follow up as scheduled so a complete physical examination can be done to determine where pain is coming from. Aug, Cervical spondylosis (ICD-10 - M47.812) I independenetly reviewed recent imaging of the cervical spine which shows degenerative changes as well as facet arthropathy. I recommend he follow up as scheduled so a complete physical exam can be done Aug, Chronic pain (ICD-10 - G89.29) Continue medications as prescribed [facility] Encounter Date Diagnosis Assessment Notes Treatment Notes Treatment Clinical Notes Jul, Sacroiliitis (ICD-10 - M46.1) 52 year old male here for follow up and medication refill for chronic pain. He voices continued complaints of low back pain with radiation into the buttocks. He notes numbness and decreased temperature in bilateral feet secondary to neuropathy. He also voices continued complaints of neck pain. He feels pain can negatively impact his daily activities and sleeping pattern. He continues taking Percocet with relief and is requesting a refill of these today. He feels pain is negatively impacting his daily activities and sleeping pattern. Anatomy of spine discussed in detail with patient in regards to patients condition. Patient is encouraged to proceed with the bilateral sacoiliac joint injection under fluoroscopic guidance as scheduled. In the meantime, I will refill his Percocet as he feels this provides an element of relief. I will also prescribe Lidocaine patches. Jul, Neck pain (ICD-10 - M54.2) Regarding his complaints of his neck pain, I will order imaging of the cervical spine to further evaluate his pain. In the meantime, patient is encouraged to start physical therapy for exercises and stretches to achieve the maximum ability to perform daily activities and movements while managing his pain. Jul, Lumbar radiculopathy (ICD-10 - M54.16) Continue taking medications as prescribed. Jul, Lumbosacral spondylosis (ICD-10 - M47.817) In the future if the pain persists, we can consider proceeding with a lumbar facet MBB followed by a RFA if applicable under fluoroscopic guidance. Jul, Neuropathy (ICD-10 - G62.9) Continue taking Gabapentin as prescribed. Jul, Chronic pain (ICD-10 - G89.29) Patient has continued need for Percocet. OARRS report processed and reviewed and shows no violations. Patient was educated on the risks and benefits of custodial opioid use. Percocet was refilled today, opioid risk assessment was done as well as pill count. Patient is compliant with opioid medication. The patient denies any opioid related side effects. [employer] Other 11-15-2022 Evaluation note* Encounter Date Diagnosis Assessment Notes Treatment Notes Treatment Clinical Notes Jun, Sacroiliitis (ICD-10 - M46.1) 51 year old male evaluated via virtual visit for follow up and medication refill for chronic pain. He voices complaints of mid to low back pain as well as neck pain and daily headaches. He also voices continued complaints of pain in bilateral lower extremities secondary to neuropathy. He continues taking Percocet with relief and is requesting a refill of these today. He feels pain is negatively impacting his daily activities and sleeping pattern. Anatomy of spine discussed in detail with patient in regards to patients condition. Patient is encouraged to proceed with the bilateral sacoiliac joint injection under fluoroscopic guidance as scheduled. Jun, Neck pain (ICD-10 - M54.2) Regarding his complaints of his neck pain, I will order imaging of the cervical spine to further evaluate his pain. In the meantime, patient is encouraged to start physical therapy for exercises and stretches to achieve the maximum ability to perform daily activities and movements while managing his pain. Jun, Lumbar radiculopathy (ICD-10 - M54.16) Patient continues to report 50% pain relief to lower extremities following caudal epidural. Jun, Lumbosacral spondylosis (ICD-10 - M47.817) In the future if the pain persists, we can consider proceeding with a lumbar facet MBB followed by a RFA if applicable under fluoroscopic guidance. Jun, Neuropathy (ICD-10 - G62.9) Continue taking Gabapentin as prescribed. Jun, Chronic pain (ICD-10 - G89.29) Continue medications as prescribed [facility]* Encounter Date Diagnosis Assessment Notes Treatment Notes Treatment Clinical Notes May, Sacroiliitis (ICD-10 - M46.1) In the future if the pain persists, we can consider proceeding with a sacroiliac joint injection under fluoroscopic guidance. May, Lumbar radiculopathy (ICD-10 - M54.16) 51 year old male evaluated via virtual visit for his chronic pain. He voices continued complaints of low back pain with radiation to the right lower extremity to the knee. He also voices complaints of bilateral knee pain. He notes a recent fall which he feels aggravated his pain. He also notes he is recovering from COVID. Anatomy of spine discussed in detail with patient in regards to patients condition. I recommend we proceed with the caudal epidural steroid injection under fluoroscopic guidance as previously scheduled. In the meantime, I will refill his Percocet and Gabapentin as he feels this provides an element of relief. May, Lumbosacral spondylosis (ICD-10 - M47.817) In the future if the pain persists, we can consider proceeding with a lumbar facet MBB followed by a RFA if applicable under fluoroscopic guidance. May, Chronic pain (ICD-10 - G89.29) Patient has continued need for Percocet. OARRS report processed and reviewed and shows no violations. Patient was educated on the risks and benefits of custodial opioid use. Percocet was refilled today, opioid risk assessment was done as well as pill count. Patient is compliant with opioid medication. The patient denies any opioid related side effects. [employer] Other 09-14-2022 Evaluation note* Encounter Date Diagnosis Assessment Notes Treatment Notes Treatment Clinical Notes Apr, Sacroiliitis (ICD-10 - M46.1) In the future if the pain persists, we can consider proceeding with a sacroiliac joint injection under fluoroscopic guidance. Apr, Lumbar radiculopathy (ICD-10 - M54.16) 51 year old male here for follow up to discuss chronic pain. He voices continued complaints of low back pain with radiation down the posterior aspect of the bilateral thighs to the knees. He also voices complaints of bilateral knee pain as well as bilateral foot pain secondary to neuropathy. He feels pain can negatively impact his ADLs and sleeping pattern. He states prolonged sitting increases his pain. Anatomy of spine discussed in detail with patient in regards to patients condition. Patient is a candidate for a caudal epidural steroid injection under fluoroscopic guidance. Risks and benefits of procedure explained to patient; patient verbalizes understanding. In the meantime, I will refill his Percocet as this provides an element of relief. We can consider increasing his Gabapentin to 600mg TID next month Apr, Lumbosacral spondylosis (ICD-10 - M47.817) In the future if the pain persists, we can consider proceeding with a lumbar facet MBB followed by a RFA if applicable under fluoroscopic guidance. 14 Apr, 2022 Chronic pain (ICD-10 - G89.29) I recommend patient increase Gabapentin to [employer] Other 08-18-2022 Evaluation note* Encounter Date Diagnosis Assessment Notes Treatment Notes Treatment Clinical Notes Mar, Lumbar radiculopathy (ICD-10 - M54.16) 51 y/o male here with complaints of low back pain with radiation down the anterior aspect of the right lower extremity to the knee. He also complains of burning and tingling in the feet bilaterally. He states his pain started many years ago becoming increasingly worse. He denies any benefit from past physical therapy. He states he had a prior back surgery 20 years ago and steroid injections in the more recent past. He reports a prior compression fracture in his back which was treated by Dr. Bee. He states his pain is aggravated with sitting. He feels his pain is negatively impacting his activities of daily living. Prior to examining the patient, I reviewed progress notes from his referring physician Dr Naylor. I also independently reviewed previous imaging of the lumbar spine which shows degenerative changes as well as facet arthropathy. Anatomy of spine discussed in detail with patient in regards to patients condition. I will order updated imaging of the lumbar spine at this time to further evaluate his pain Mar, Sacroiliitis (ICD-10 - M46.1) In the future if the pain persists, we can consider proceeding with a bilateral sacroiliac joint injection under fluoroscopic guidance Mar, Peripheral neuropathy (ICD-10 - G62.9) Continue Gabapentin as prescribed. Patient was recently increased to 400mg Mar, Lumbar degenerative disc disease (ICD-10 - M51.36) Proceed with updated imaging Mar, Chronic pain (ICD-10 - G89.29) Continue medications as prescribed Mar, Other Medical deci deejay making shows a new problem to me with further workup planned or suggested with the potential for extensive treatment options that were considered with the most applicable given this patient's situation as noted above. Treatment options considered include a combination of physical therapy approaches, pharmacologic management, and interventional procedures. Those most applicable to the patient were discussed at this time. Risk of complications and/or morbidity and mortality is high given that acute and chronic pain poses a threat to life and bodily function if undertreated, poorly treated or with failure to maintain adequate treatment and timely followup. Given the serious and fluctuating nature of pain with extensive consideration for whenever pain changes, there always remains the possibility of prolonged functional impairment requiring constant patient reassessment and high-level medical decision making. The amount and complexity of data reviewed is high given that patient labs, radiology reports, and other test were obtained, reviewed and summarized as applicable from the physician portal and/or outside medical records. Pertinent positive and negative findings were considered in medical decision-making. [employer] Other 05-09-2022 Evaluation note* Encounter Date Diagnosis Assessment Notes Treatment Notes Treatment Clinical Notes December, Idiopathic peripheral neuropathy (ICD-10 - G60.9) Although the patient may have some symptoms from his degenerative disc disease I really feel that most of this is his peripheral neuropathy and therefore I do not feel that a surgical intervention is warranted at this time. I would like him to follow-up formally with neurology to see if they can calm some of his symptoms down. 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 As such I would like him to get bilateral lower extremity EMG and nerve conduction studies and we will see him back in the office at that time. At this point in time I find it hard to believe that we would consider him for surgical intervention. Aug, Degenerative lumbar disc (ICD-10 - M51.36) Aug, DDD (degenerative disc disease), lumbosacral (ICD-10 - M51.37) [employer] Other evaluation noteNo InformationNort [employer] Other Evaluation [email or web address] Other Evaluation noteNo assessment information available [facility] Work Phone: Evaluation note* Diagnosis Onset Date Resolution Status Disorder of intervertebral disc at C5-C6 level acute [facility] Work Phone: Evaluation note* Diagnosis Onset Date Resolution Status Arthropathy of both shoulders acute Disorder of intervertebral disc at C5-C6 level acute Cirrhosis acute Diarrhea acute GERD (gastroesophageal reflux disease) acute IBS (irritable bowel syndrome) acute [facility] Work Phone: Evaluation note* Diagnosis Onset Date Resolution Status Cirrhosis acute GERD (gastroesophageal reflux disease) acute Irritable bowel syndrome with diarrhea acute [facility] Work Phone: Evaluation note* Diagnosis Paresthesia- Primary Disturbance of skin sensation [facility] Lumbar radiculopathy, chronic [facility] Diagnosis Lumbar radiculopathy, chronic [facility] Diagnosis Lumbar radiculopathy, chronic [facility]* Diagnosis Lumbar radiculopathy, chronic- Primary History of lumbar surgery Lumbar spondylosis Lumbosacral spondylosis without myelopathy Bilateral hand pain [facility]* Diagnosis Closed displaced intertrochanteric fracture of right femur ([facility])- Primary Closed displaced intertrochanteric fracture of right femur with routine healing, subsequent encounter- Primary Closed displaced intertrochanteric fracture of right femur, initial encounter ([facility]) [facility]* Diagnosis Closed fracture of right hip, initial encounter ([facility])- Primary Closed fracture of right hip, initial encounter ([facility]) Closed displaced intertrochanteric fracture of right femur ([facility]) [facility]* Diagnosis Closed displaced intertrochanteric fracture of right femur, sequela- Primary Closed displaced subtrochanteric fracture of right femur, initial encounter ([facility]) [facility]* Diagnosis Closed fracture of right hip, initial encounter ([facility])- Primary Closed fracture of right hip, initial encounter ([facility]) Periprosthetic fracture of hip, sequela Periprosthetic fracture of hip, subsequent encounter Myah-prosthetic fracture around prosthetic hip Myah-prosthetic fracture around prosthetic joint [facility]* Diagnosis Closed fracture of right hip, initial encounter ([facility]) [facility] Diagnosis Closed fracture of right hip, initial encounter ([facility]) [facility]* Diagnosis Localized swelling of right lower extremity- Primary Periprosthetic fracture of hip, subsequent encounter [facility]* Diagnosis Periprosthetic fracture of hip, subsequent encounter- Primary [facility]* Diagnosis Closed displaced intertrochanteric fracture of right femur with routine healing, subsequent encounter- Primary Trochanteric bursitis of right hip [facility]* Diagnosis Closed fracture of right hip, initial encounter ([facility]) [facility] Diagnosis Closed fracture of right hip, initial encounter ([facility]) [facility]* Diagnosis Disorder of sacrum- Primary Disorders of sacrum documented [facility]* Diagnosis Closed displaced intertrochanteric fracture of right femur with routine healing, subsequent encounter- Primary [facility]* Diagnosis Right knee pain, unspecified chronicity- Primary [facility]* Diagnosis Right knee pain, unspecified chronicity- Primary [facility]* Diagnosis Back pain, unspecified back location, unspecified back pain laterality, unspecified chronicity- Primary [facility]* Diagnosis Closed displaced intertrochanteric fracture of right femur with routine healing, subsequent encounter- Primary [facility]* Diagnosis Lumbar radiculopathy, chronic- Primary Left cervical radiculopathy Bilateral hand pain Bilateral hand numbness Disturbance of skin sensation Lumbar spondylosis Lumbosacral spondylosis without myelopathy Cervical spondylosis Cervical spondylosis without myelopathy Chronic midline low back pain without sciatica History of lumbar surgery Anxiety Anxiety state, unspecified [facility] Diagnosis Lumbar radiculopathy, chronic [facility]* Diagnosis Trochanteric bursitis of right hip- Primary documented in this encounter [facility] note* Diagnosis Acute right-sided low back pain with right-sided sciatica- Primary documented in this encounter [facility] note* Diagnosis Radicular syndrome of right leg- Primary Thoracic or lumbosacral neuritis or radiculitis, unspecified History of lumbar laminectomy Diabetic peripheral neuropathy (HCC) Type II or unspecified type diabetes mellitus with neurological manifestations, not stated as uncontrolled History of total right hip replacement Thrombocytopenia Thrombocytopenia, unspecified documented in this encounter [facility] note* Diagnosis Malignant neoplasm of colon, unspecified part of colon (HCC)- Primary Thrombocytopenia Thrombocytopenia, unspecified documented in this encounter [facility] note* Diagnosis Radicular syndrome of right leg- Primary Thoracic or lumbosacral neuritis or radiculitis, unspecified History of lumbar laminectomy Diabetic peripheral neuropathy (HCC) Type II or unspecified type diabetes mellitus with neurological manifestations, not stated as uncontrolled Radicular syndrome of right leg Thoracic or lumbosacral neuritis or radiculitis, unspecified History of lumbar laminectomy Diabetic peripheral neuropathy (HCC) Type II or unspecified type diabetes mellitus with neurological manifestations, not stated as uncontrolled documented in this encounter [facility] note* Diagnosis Benign prostatic hyperplasia, unspecified whether lower urinary tract symptoms present- Primary Difficulty urinating Other symptoms involving urinary system documented in this encounter [facility] note* Diagnosis Onset Date Resolution Status Admit Date Cirrhosis acute December 05 1:16pm Esophageal varices acute December 05, 2024 1:16pm GERD (gastroesophageal reflu x disease) acute December 05, 2024 1:16pm Hepatic encephalopathy acute Ap 2024 1:16pm Irritable bowel syndrome wit h diarrhea acute December 05, 2024 1:16pm Personal history of colon cancer acu te December 05, 2024 1:16pm [facility] Work Phone: History general Narrative - Reported* Type Description Date Medical History DM II Medical History bipolar Medical History chronic back pain Medical History cirrhosis Medical History hepatitis C Medical History colon cancer Surgical History colon - Dr Flores 04/2018 Surgical History microdiscectomy 1998 Surgical History microdiscectomy 1998 Surgical History Back surg 1999 Surgical History Lt foot Sx due to Staph Surgical History colonoscopy Surgical History laparoscopic left colectomy Surgical History Incisionall hernia repair w/ PC Tamiko 05/13/2019 Surgical History Rt. inguinal hernia repair w/Dr Kelvin Morrison 06/14/19 Hospitalization History See Sx Hx [employer] Other [facility] general Narrative - [email or web address] Other [facility] general Narrative - Reported* Type Description Date Medical History DM II Medical History bipolar Medical History chronic back pain Medical History cirrhosis Medical History hepatitis C Medical History colon cancer Surgical History colon - Dr Flores 04/2018 Surgical History microdiscectomy 1998 Surgical History microdiscectomy 1998 Surgical History Back surg 1999 Surgical History Lt foot Sx due to Staph Surgical History colonoscopy Surgical History laparoscopic left colectomy Surgical History Incisionall hernia repair w/ Ang[facility]i 05/13/2019 Surgical History Rt. inguinal hernia repair w/Dr Kelvin Morrison 06/14/19 Surgical History hernia repair Hospitalization History See Sx Hx [facility] Other Hospital Discharge instructions Additional Instructions DISCHARGE INSTRUCTIONS FOR UPPER ENDOSCOPY WHAT TO EXPECT: - You may feel full, gassy or cramping after your procedure. In some cases, this may be from a few hours to a day. Walking may help relieve the discomfort. - Your throat may feel sore today from the scope that the doctor passed through your throat to visualize your stomach. Take a throat lozenge or suck on ice to ease the discomfort. - You may notice some streaks of blood in your sputum if the doctor has taken a biopsy. - You should begin to recover from anesthesia within 1 hour of the procedure, however may feel groggy for the next 24 hours. DO's AND DON'Ts: - Call your doctor right away if you have a hard abdomen, severe pain, vomiting or if you cough up large amounts of blood. - Call your doctor if you develop any rashes, hives or difficulty breathing. - If you take 81 mg aspirin for your heart it is safe to resume this medication. - If you take other blood thinner medications your doctor will instruct you when these can safely be resumed. - Do NOT drive for 24 hours. - Do NOT operate machinery such as power tools, lawn mowers, snow blowers, sewing machines, etc. for 24 hours. - Avoid alcoholic beverages and drugs for allergies, nerves, or sleep. - Do NOT stay alone. Do NOT leave your child unattended. - Do NOT make important personal or business decisions or sign any legal documents. - Eat solid foods and drink liquids in smaller amounts than usual until normal appetite returns. If you should experience an upset stomach, liquids high in sugar content (soda, Curtis-Aid, non-acid juices) are recommended. - Do NOT smoke. - Do take it easy today. You need not stay in bed, but avoid strenuous activities such as jogging or working out. FOLLOW UP & RECOMMENDATIONS: -Stop metoprolol, start carvedilol twice daily instead -The GI office will make a follow-up appointment on your new medication for you in about 3 months -Notify the doctor if you have any problems. -Follow up with PCP. -Office number [phone].[facility] Work Phone: Hospital Discharge instructionsAmbulatory Orders* Referral to Orthopedic Surgery Location: None Selected [facility] Work Phone: InstructionsNot on filedocumented in this encounter [facility] filed[facility] filedocumented in this encounter [facility] filedocumented in this encounter [facility] on filedocumented in this encounter [facility] on filedocumented in this encounter [facility] on filedocumented in this encounter [facility] on filedocumented in this encounter [facility]ructionsNot on filedocumented in this encounter [facility] on filedocumented in this encounter [facility] on filedocumented in this encounter [facility] on filedocumented in this encounter [facility] on filedocumented in this encounter [facility]Not on filedocumented in this encounter [facility]Not on filedocumented in this encounter [facility]ructionsNot on filedocumented in this encounter [facility]* Attachments The following attachments cannot be sent through Care Everywhere. * [facility]yst[facility] ([place]) [facility] for visit NarrativeONE WEEK FOLLOW UP AFTER PROCEDURE, Patient consents to be evaluated and treated via telemedicine, risks benefits and alternatives explained., Patient at home virtually seen from office.[employer] Other Reason for visit Narrative* Other Medical (Routine) - Closed Specialty Diagnoses / Procedures Referred By Pamela t Referred To Contact Neurology Diagnoses Radiculopathy, cervical region Pain in right hand Pain in left hand Anesthesia of skin Spondylosis without myelopathy or radiculopathy, cervical region Procedures KS NEEDLE EMG EA EXTREMTY W/PARASPINL AREA COMPLETE [place] NERVE CONDUCTION STUDIES 9-10 STUDIES Marcell Badillo MD [address] [place] [address] Phone: tel: fax: Virgil Ashford MD [address] [place] [address] Phone: tel: fax: Referral ID Status Reason Start Date Expiration Date V isits Requested Visits Authorized [id number] Closed Perform Procedure 07/19/2024 01/15/2025 1 1 [facility] Summary Purpose Family History No Family History Records Found Relationship Condition Age at Onset Recorded Date/T ariela father History of coronary artery bypass surgery Unknown Not Specified Migraine headache Unknown Relationship Condition Age at Onset Recorded Date/T ariela father History of coronary artery bypass surgery Unknown Not Specified Migraine headache Unknown father Hypertension Unknown Heart disease Unknown Unknown Not Specified Family history of mental disorder Unknow n Relationship Condition Age at Onset Recorded Date/T ariela father History of coronary artery bypass surgery Unknown mother Migraine headache Unknown mother Family history of mental disorder Unknown Advance Directives No Advanced Directives Records Found Date Activated Date Inactivated Comments 02/03/2024 3:30 PM Date Activated Date Inactivated Comments 01/29/2024 11:23 AM 02/03/2024 3:24 PM Date Activated Date Inactivated Comments 01/22/2024 6:39 PM 01/29/2024 10:03 AM Date Activated Date Inactivated Comments 01/17/2024 11:19 AM 01/22/2024 6:23 PM Date Activated Date Inactivated Comments 10/31/2021 8:57 PM 11/03/2021 8:13 PM Advance Directive Response Recorded Date/ Time Advance Directives No October 14 4:07pm Advance Directive Response Recorded Date/ Time Advance Directives No October 14 3:07pm Advance Directive Response Recorded Date/ Time Advance Directives Yes November 30, 2 024 10:37am Date Activated Date Inactivated Comments 02/03/2024 3:30 PM 02/09/2024 3:10 PM Advance Directive Response Recorded Date/ Time Advance Directives Yes November 30, 024 9:37am Date Activated Date Inactivated Comments 02/03/2024 3:30 PM 02/09/2024 3:10 PM Date Activated Date Inactivated Comments 01/29/2024 11:23 AM 02/03/2024 3:24 PM Date Activated Date Inactivated Comments 01/22/2024 6:39 PM 01/29/2024 10:03 AM Date Activated Date Inactivated Comments 01/17/2024 11:19 AM 01/22/2024 6:23 PM Date Activated Date Inactivated Comments 10/31/2021 8:57 PM 11/03/2021 8:13 PM Date Activated Date Inactivated Comments 10/31/2021 8:57 PM 11/03/2021 8:13 PM Date Activated Date Inactivated Comments 04/05/2021 7:29 AM 04/07/2021 5:55 PM Date Activated Date Inactivated Comments 01/22/2024 6:39 PM Date Activated Date Inactivated Comments 01/17/2024 11:19 AM 01/22/2024 6:23 PM Date Activated Date Inactivated Comments 10/31/2021 8:57 PM 11/03/2021 8:13 PM Date Activated Date Inactivated Comments 04/05/2021 7:29 AM 04/07/2021 5:55 PM Date Activated Date Inactivated Comments 01/22/2024 6:39 PM Date Activated Date Inactivated Comments 01/17/2024 11:19 AM 01/22/2024 6:23 PM Date Activated Date Inactivated Comments 10/31/2021 8:57 PM 11/03/2021 8:13 PM Date Activated Date Inactivated Comments 04/05/2021 7:29 AM 04/07/2021 5:55 PM Date Activated Date Inactivated Comments 01/29/2024 11:23 AM Date Activated Date Inactivated Comments 01/22/2024 6:39 PM 01/29/2024 10:03 AM Date Activated Date Inactivated Comments 01/17/2024 11:19 AM 01/22/2024 6:23 PM Date Activated Date Inactivated Comments 10/31/2021 8:57 PM 11/03/2021 8:13 PM Date Activated Date Inactivated Comments 04/05/2021 7:29 AM 04/07/2021 5:55 PM Documents on File Type Date Recorded Patient Skimmer Expl anation Advance Directive(s) 04/06/2018 2:06 PM Documents on File Type Date Recorded Patient Skimmer Expl anation Advance Directive(s) 04/06/2018 2:06 PM Chief Complaint and Reason for Visit Chief Complaint Admit Date 6 month f/u-cirrhosis/ibs December 05 1:16pm k74.60 December 12, 2024 5:30pm Reason for Visit Admit Date Cirrhosis December 05, 2024 1:1 6pm Esophageal varices December 05, 2024 1:1 6pm GERD (gastroesophageal reflux disease) A pril 2024 1:16pm Hepatic encephalopathy December 05, 2024 1:16pm Irritable bowel syndrome with diarrhea A [facility] 2024 1:16pm Personal history of colon cancer November 132024 1:16pm Chief Complaint Abdominal Pain,Hx co benito cancer Chief Complaint radiculopathy Chief Complaint radiculopathy Back Pain Chief Complaint Back Pain Back Pain Chief Complaint Gerd Chief Complaint Gerd m51.14 Chief Complaint Gerd m51.14 Cirrhosis Chief Complaint K74.60 R10.32 r19.5 Chief Complaint Pain In Colon R10.32 r19.5 neck and arm pain Chief Complaint R10.32 r19.5 neck and arm pain M54.2 Chief Complaint neck and arm pain M54.2 Ref diane mcgrath, C5-C6 dics disorder w myelopathy Reason for Visit Disorder of interver tebral disc at C5-C6 level Chief Complaint Ref diane alcides, C5 -C6 dics disorder w myelopathy 6 month follow up Reason for Visit 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 Cirrhosis Diarrhea GERD (gastroesophageal reflux disease) IBS (irritable bowel syndrome) Chief Complaint 3 month follow up Reason for Visit Cirrhosis GERD (gastroesophageal reflux disease) Irritable bowel syndrome with diarrhea Chief Complaint Admit Date 3 month follow up June 05, 2024 1 :27pm M54.16 M47.816 M54.50 G89.29 Z98.890 Dario uary 2024 1:46pm Reason for Visit Admit Date Cirrhosis June 05, 2024 1 :27pm GERD (gastroesophageal reflux disease) O ctober 2023 1:27pm Irritable bowel syndrome with diarrhea O ctober 2023 1:27pm Chief Complaint Admit Date 6 month f/u-cirrhosis/ibs December 05 1:16pm Assessments No Assessments Information Available Reason for Referral Specialty Diagnoses / Procedures Referred By Contac t Referred To Contact Diagnoses Disorder of sacrum Procedures Case request operating room: INJECTION BLOCK SACROILIAC JOINT RIGHT Eddie Torre, HOSPITAL CHIEF FINANCIAL OFFICER-LICENSING REPRESENTATIVE [address] [place] [address] Referral ID Status Reason Start Date Expiration Date V isits Requested Visits Authorized [id number] Pending Review 04/02/2024 04/02/2025 1 1 Specialty Diagnoses / Procedures Referred By Contac t Referred To Contact Rehabilitation Diagnoses Closed displaced intertrochanteric fracture of right femur with routine healing, subsequent encounter Rehana Retana PA-C [address] [place] [address] Referral ID Status Reason Start Date Expiration Date Visits Requested Visits Authorized [id number] Pending Review Specialty Services Required 03/14/2024 09/14/2024 1 1 Specialty Diagnoses / Procedures Referred By Contac t Referred To Contact Diagnoses Localized swelling of right lower extremity Procedures Vas venous duplex lwr single right Tom Marquez PA-C [address] [place] [address] Referral ID Status Reason Start Date Expiration Date V isits Requested Visits Authorized [id number] Pending Review 02/22/2024 02/21/2025 1 1 Specialty Diagnoses / Procedures Referred By Contac t Referred To Contact Procedures Discharge Follow-Up Leatha Mcguire MD [address] [place] [address] Referral ID Status Reason Start Date Expiration Date V isits Requested Visits Authorized [id number] Pending Review 02/03/2024 02/02/2025 1 1 Specialty Diagnoses / Procedures Referred By Contac t Referred To Contact Procedures Adult diet Leatha Mcguire MD [address] [place] [address] Referral ID Status Reason Start Date Expiration Date V isits Requested Visits Authorized [id number] Pending Review 02/03/2024 02/02/2025 1 1 Specialty Diagnoses / Procedures Referred By Contac t Referred To Contact Diagnoses Periprosthetic fracture of hip, subsequent encounter Procedures Follow-up with primary care provider Leatha Mcguire MD [address] [place] [address] Referral ID Status Reason Start Date Expiration Date V isits Requested Visits Authorized [id number] Pending Review 02/03/2024 02/02/2025 1 1 Specialty Diagnoses / Procedures Referred By Contac t Referred To Contact Behavioral Health Diagnoses Periprosthetic fracture of hip, subsequent encounter Leatha Mcguire MD [address] [place] [address] Referral ID Status Reason Start Date Expiration Date Visits Requested Visits Authorized [id number] Pending Review Specialty Services Required 02/03/2024 02/02/2025 1 1 Specialty Diagnoses / Procedures Referred By Contac t Referred To Contact Occupational Therapy Diagnoses Periprosthetic fracture of hip, subsequent encounter Leatha Mcguire MD [address] [place] [address] Referral ID Status Reason Start Date Expiration Date Visits Requested Visits Authorized [id number] Pending Review Specialty Services Required 02/03/2024 08/04/2024 12 12 Specialty Diagnoses / Procedures Referred By Contac t Referred To Contact Rehabilitation Diagnoses Periprosthetic fracture of hip, subsequent encounter Leatha Mcguire MD [address] [place] [address] Referral ID Status Reason Start Date Expiration Date Visits Requested Visits Authorized [id number] Pending Review Specialty Services Required 02/03/2024 08/04/2024 12 12 Specialty Diagnoses / Procedures Referred By Contac t Referred To Contact Diagnoses Closed fracture of right hip, initial encounter ([facility]) Periprosthetic fracture of hip, sequela Procedures Follow-up with primary care provider Leatha Mcguire MD [address] [place] [address] Referral ID Status Reason Start Date Expiration Date V isits Requested Visits Authorized [id number] Pending Review 02/02/2024 02/01/2025 1 1 Specialty Diagnoses / Procedures Referred By Contac t Referred To Contact Procedures Discharge Follow-Up Abad Diallo DO [address] [place] [address] Referral ID Status Reason Start Date Expiration Date V isits Requested Visits Authorized [id number] Pending Review 01/22/2024 01/21/2025 1 1 Specialty Diagnoses / Procedures Referred By Contac t Referred To Contact Diagnoses Closed fracture of right hip, initial encounter ([facility]) Procedures Follow-up with primary care provider Abad Diallo DO [address] [place] [address] Referral ID Status Reason Start Date Expiration Date V isits Requested Visits Authorized [id number] Pending Review 01/22/2024 01/21/2025 1 1 Reason Evaluate and Treat Diagnosis 1 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 Referring Provider First Name Bird Referring Provider Last Name Yany Referring Provider Specialty Neurosurger y Referred Organization [facility] Referred Provider Erick Naylor Referred Address [address] 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 Referring Provider First Name Bird Referring Provider Last Name Yany Referring Provider Specialty Neurosurger y Referred Organization [facility] Referred Provider Virgil Ashford Referred Address [address] [facility] [place] [place], [place],[address] Referred Provider Specialty Neurology Referral Priority Routine General Notes Monica Burgess 01:13:32 PM >received today, made attachments, waiting for notes to be locked to fax Additional Source Comments (unrecognized sect ion and content) No Status Records FoundNo Status Records FoundNo Status Records FoundNo Status Records FoundNo Status Records FoundNo Status Records FoundNo Status Records FoundNo Status Records FoundNo Status Records FoundNo Status Records FoundNo Status Records Found INFORMATION SOURCE (unrecogn ized section and content) DATE CREATED AUTHOR 03/14/2018 [facility] DATE CREATED AUTHOR AUTHOR'S ORGANIZ ATION 05/29/2018 [facility] DATE CREATED AUTHOR AUTHOR'S ORGANIZ ATION 05/20/2020 [facility] DATE CREATED AUTHOR AUTHOR'S ORGANIZ ATION 02/05/2021 [facility] DATE CREATED AUTHOR AUTHOR'S ORGANIZ ATION 07/28/2024 [facility] DATE CREATED AUTHOR AUTHOR'S ORGANIZ ATION 08/07/2024 [facility] DATE CREATED AUTHOR AUTHOR'S ORGANIZ ATION 11/09/2024 [facility] DATE CREATED AUTHOR AUTHOR'S ORGANIZ ATION 11/15/2024 [facility] DATE CREATED AUTHOR AUTHOR'S ORGANIZ ATION 12/05/2024 [facility] DATE CREATED AUTHOR AUTHOR'S ORGANIZ ATION 12/17/2024 [facility] DATE CREATED AUTHOR AUTHOR'S ORGANIZ ATION 12/27/2024 [facility] REASON FOR VISIT (unrecogniz ed section and content) Reason Onset Date Comments Med Refill 08/05/2024 Reason Onset Date Comments Med Refill 08/13/2024 Reason Onset Date Comments Med Refill 08/21/2024 Reason Onset Date Comments Med Refill 08/28/2024 Reason Onset Date Comments Med Refill 09/04/2024 Reason Comments Hip Injury Specialty Diagnoses / Procedures Referred By Contac t Referred To Contact Diagnoses Preop examination Closed fracture of right hip, initial encounter ([facility]) Jeff Martin MD [address] [place] [address] Referral ID Status Reason Start Date Expiration Date Visits Re quested Visits Authorized [id number] 1 1 Reason Comments Post-op S/p TFNA Right IT Hi p Fx,S/p fall has new fx around nail, r femur fall Post-op Reason Comments Fall Evaluation of Abnormal Diagnostic Test Specialty Diagnoses / Procedures Referred By Contac t Referred To Contact Diagnoses Closed fracture of right hip, initial encounter ([facility]) Leatha Mcguire MD [address] [place] [address] Referral ID Status Reason Start Date Expiration Date Visits Re quested Visits Authorized [id number] 1 1 Reason Comments Med Refill Reason Comments Post-op S/p SANTO, Revision OR IF/IMN Right Femur Fx, XRD Post-op Reason Comments Establish Care Revision ORIF/IMN Ri ght Femur Fx Follow-up Reason Onset Date Comments Med Refill 03/18/2024 Reason Comments Back Pain Neck Pain Reason Comments Establish Care F/u 6 wks,Closed dis placed IT right femur fx,Trochanteric bursitis of right hip, Follow-up Reason Comments Establish Care R knee pain-new, XRD -WEIGHTBEARING AP & LATERAL VIEWS Follow-up Reason Comments Consult New patient, lumbar/ cervical, xrays in chart Reason Onset Date Comments Med Refill 07/24/2024 Reason Comments Establish Care Follow-up Reason Comments Back Pain Reason Comments Consult Right sided low back pain Specialty Diagnoses / Procedures Referred By Contac t Referred To Contact Pain Management Diagnoses Acute right-sided low back pain with right-sided sciatica Procedures CONSULT TO PAIN MGT OFFICE/OUTPATIENT NEW HIGH MDM 60 MINUTES Martha Faulkner, HOSPITAL CHIEF FINANCIAL OFFICER.LICENSING REPRESENTATIVE [address] [place] [address] Phone: tel: fax: Referral ID Status Reason Start Date Expiration Date V isits Requested Visits Authorized [id number] Closed PCP Requested Referral 11/08/2024 02/06/2025 1 1 Reason Comments Colon Cancer Specialty Diagnoses / Procedures Referred By Contac t Referred To Contact Hematology Diagnoses Thrombocytopenia Procedures CONSULT TO HEMATOLOGY OFFICE/OUTPATIENT [facility] 60 MINUTES Abrahan Rinaldi MD [address] [place] [address] Phone: tel: fax: Referral ID Status Reason Start Date Expiration Date V isits Requested Visits Authorized [id number] Closed PCP Requested Referral 11/22/2024 11/22/2025 1 1 Reason Comments Schedule Injection Reason Comments Difficulty Urinating Specialty Diagnoses / Procedures Referred By Contac t Referred To Contact Urology Diagnoses Difficulty urinating Francisca Wade MD [address] [place] [address] Phone: tel: fax: [facility] [address] [place] [address] Phone: tel: fax: Referral ID Status Reason Start Date Expiration Date Visits Requested Visits Authorized [id number] Pending Review Specialty Services Required 10/11/2024 10/11/2025 1 1 Reason Comments Pain Procedure Response & follow up Righ t L5-S1 Transforaminal Epidural Steroid injection # 1 Care Teams (unrecognized sec tion and content) Team Status: Inactive Member Role Status Dates Jd Du PA-C Primary Care Provider Activ e Asa Moeller MD Attending Provider Active Team Status: Active Member Role Status Dates Jd Du PA-C Primary Care Provider Activ e Team Status: Inactive Member Role Status Dates Jd Du PA-C Primary Care Provider Activ e Guillermo Thornton MD Attending Provider Active Team Status: Inactive Member Role Status Dates Jd Du PA-C Primary Care Provider Activ e Jayleen Guaman MD Attending Provider Active Team Status: Inactive Member Role Status Dates Guillermo Thornton MD Attending Provider Active S tart: August 10, 2023 End: August 10, 2023 Team Status: Inactive Member Role Status Dates Jd Du PA-C Primary Care Provider Activ e Start: August 21, 2023 End: August 21, 2023 Guillermo Thornton MD Attending Provider Active S tart: August 21, 2023 End: August 21, 2023 Team Status: Inactive Member Role Status Dates Jd Du PA-C Primary Care Provider Activ e Start: November 01, 2023 End: November 01, 2023 Jun Morel APRN Emergency Provider Active Start: November 01, 2023 End: November 01, 2023 Team Status: Inactive Member Role Status Dates Jd Du PA-C Primary Care Provider, Attending Provider Active Start: November 13, 2023 End: November 13, 2023 Team Status: Inactive Member Role Status Dates Jd Du PA-C Primary Care Provider Activ e Start: December 01, 2023 End: December 01, 2023 Dave Bee MD Attending Provider Active Star t: December 01, 2023 End: December 01, 2023 Team Status: Inactive Member Role Status Dates Jd Du PA-C Primary Care Provider Activ e Start: February 28, 2024 End: February 28, 2024 Guillermo Thornton MD Attending Provider Active S tart: February 28, 2024 End: February 28, 2024 Team Status: Inactive Member Role Status Dates Jd Du PA-C Primary Care Provider Activ e Start: June 05, 2024 End: June 05, 2024 Guillermo Thornton MD Attending Provider Active S tart: June 05, 2024 End: June 05, 2024 Medical Accounting Clerk Relationship Specialty Start Date End Date Unallocated, Jorge As MD [address] [place] [address] PCP - General Family Medicine 12/12/23 Diane Mcgrath NP [address] [place] [address] Referring Physician Family Medicine 12/12/23 Marcell Badillo MD [address] [place] [address] Referring Physician Family Medicine 07/19/24 Medical Accounting Clerk Relationship Specialty Start Date End Date Unallocated, Chirag Matos MD [address] [place] [address] PCP - General Family Medicine 12/12/23 Diane Mcgrath NP [address] [place] [address] Referring Physician Family Medicine 12/12/23 Marcell Badillo MD [address] [place] [address] Referring Physician Family Medicine 07/19/24 Medical Accounting Clerk Relationship Specialty Start Date End Date Francisca Wade MD [address] [place], [place] [id number] PCP - General Internal Medicine 07/18/24 Medical Accounting Clerk Relationship Specialty Start Date End Date Francisca Wade MD [address] [place], [place] [id number] PCP - General Internal Medicine 07/18/24 Team Status: Active Member Role Status Dates Francisca Wade MD Primary Care Provider Active Team Status: Inactive Member Role Status Dates Marcell Badillo NP-C Attending Provider Active S tart: August 27, 2024 End: August 27, 2024 Francisca Wade MD Primary Care Provider Active S tart: August 27, 2024 End: August 27, 2024 Medical Accounting Clerk Relationship Specialty Start Date End Date Francisca Wade MD [address] [place] [place] [id number] PCP - General Internal Medicine 07/18/24 Medical Accounting Clerk Relationship Specialty Start Date End Date Francisca Wade MD [address] [place] [address] PCP - General Internal Medicine 07/18/24 Medical Accounting Clerk Relationship Specialty Start Date End Date Francisca Wade MD [address] [place] [address] PCP - General Internal Medicine 07/18/24 Medical Accounting Clerk Relationship Specialty Start Date End Date Jd Du PA-C [address] [place] [address] PCP - General Physician Pearl Cutter 07/31/17 Medical Accounting Clerk Relationship Specialty Start Date End Date Jd Du PA-C [address] [place] [address] PCP - General Physician Pearl Cutter 07/31/17 Medical Accounting Clerk Relationship Specialty Start Date End Date Jd Du PA-C [address] [place] [address] PCP - General Physician Pearl Cutter 07/31/17 Medical Accounting Clerk Relationship Specialty Start Date End Date Jd Du PA-C [address] [place] [address] PCP - General Physician Pearl Cutter 07/31/17 Medical Accounting Clerk Relationship Specialty Start Date End Date Jd Du PA-C [address] [place] [address] PCP - General Physician Pearl Cutter 07/31/17 Medical Accounting Clerk Relationship Specialty Start Date End Date Jd Du PA-C [address] [place] [address] PCP - General Physician Pearl Cutter 07/31/17 Medical Accounting Clerk Relationship Specialty Start Date End Date Jd Du PA-C [address] [place] [address] PCP - General Physician Pearl Cutter 07/31/17 Medical Accounting Clerk Relationship Specialty Start Date End Date Jd Du PA-C [address] [place] [address] PCP - General Physician Pearl Cutter 07/31/17 Medical Accounting Clerk Relationship Specialty Start Date End Date Jd Du PA-C [address] [place] [address] PCP - General Physician Pearl Cutter 07/31/17 Medical Accounting Clerk Relationship Specialty Start Date End Date Diane Mcgrath HOSPITAL CHIEF FINANCIAL OFFICER-BLENDER HELPER [address] [place] [address] PCP - General 03/14/24 Medical Accounting Clerk Relationship Specialty Start Date End Date Diane Mcgrath HOSPITAL CHIEF FINANCIAL OFFICER-BLENDER HELPER [address] [place] [address] PCP - General 03/14/24 Medical Accounting Clerk Relationship Specialty Start Date End Date Diane Mcgrath HOSPITAL CHIEF FINANCIAL OFFICER-BLENDER HELPER [address] [place] [address] PCP - General 03/14/24 Medical Accounting Clerk Relationship Specialty Start Date End Date Diane Mcgrath HOSPITAL CHIEF FINANCIAL OFFICER-BLENDER HELPER [address] [place] [address] PCP - General 03/14/24 Medical Accounting Clerk Relationship Specialty Start Date End Date Diane Mcgrath HOSPITAL CHIEF FINANCIAL OFFICER-BLENDER HELPER [address] [place] [address] PCP - General 03/14/24 Medical Accounting Clerk Relationship Specialty Start Date End Date Diane Mcgrath [facility]IEF [facility] [address] [place] [address] PCP - General Family Medicine 06/07/24 Medical Accounting Clerk Relationship Specialty Start Date End Date Diane Mcgrath, HOSPITAL CHIEF FINANCIAL OFFICER-[facility] [address] [place] [address] PCP - General Family Medicine 06/07/24 Medical Accounting Clerk Relationship Specialty Start Date End Date Francisca Wade MD [address] [place] [address] PCP - General Internal Medicine 07/18/24 Medical Accounting Clerk Relationship Specialty Start Date End Date Francisca Wade MD [address] [place] [address] PCP - General Internal Medicine 07/18/24 Medical Accounting Clerk Relationship Specialty Start Date End Date Francisca Wade MD [address] [place] [address] PCP - General Internal Medicine 07/18/24 Medical Accounting Clerk Relationship Specialty Start Date End Date Jd Du PA-C [address] [place] [address] [place] [address] PCP - General Internal Medicine 04/09/18 Jun Arriola DO Physician Hematology 03/26/18 Lorie Ozuna RN [address] [place] [address] Supervisor [employer] 03/26/18 Gianna Hodge, JOHN.LICENSING REPRESENTATIVE [address] [place] [address] Nurse Practitioner Hematology/Oncology 03/26/18 Medical Accounting Clerk Relationship Specialty Start Date End Date Jd Du PA-C [address] [place] [address] PCP - General Internal Medicine 04/09/18 Jun Arriola DO Physician Hematology 03/26/18 Lorie Ozuna RN [address] [place] [address] Supervisor [employer] 03/26/18 Gianna Hodge, HOSPITAL CHIEF FINANCIAL OFFICER.LICENSING REPRESENTATIVE [address] [place] [address] [place] [address] Nurse Practitioner Hematology/Oncology 03/26/18 Medical Accounting Clerk Relationship Specialty Start Date End Date Jd Du PA-C [address] [place] [address] PCP - General Internal Medicine 04/09/18 Jun Arriola DO Physician Hematology 03/26/18 Lorie Ozuna RN [address] [place] [address] [employer] 03/26/18 Gianna Hodge, HOSPITAL CHIEF FINANCIAL OFFICER.LICENSING REPRESENTATIVE [address] [place] [address] Nurse Practitioner Hematology/Oncology 03/26/18 Medical Accounting Clerk Relationship Specialty Start Date End Date Jd Du PA-C [address] [place] [address] PCP - General Internal Medicine 04/09/18 Jun Arriola DO Physician Hematology 03/26/18 Lorie Ozuna RN [address] [place] [address] Supervisor [employer] 03/26/18 Gianna Hodge, JOHN.LICENSING REPRESENTATIVE [address] [facility] [place] [address] Nurse Practitioner Hematology/Oncology 03/26/18 Medical Accounting Clerk Relationship Specialty Start Date End Date Jd Du PA-C [address] [facility] [place] [address] PCP - General Internal Medicine 04/09/18 Jun Arriola DO Physician Hematology 03/26/18 Lorie Ozuna, ELIAS [address] [facility] [place] [address] Supervisor [employer] 03/26/18 Gianna Hodge, JOHN.LICENSING REPRESENTATIVE [address] [facility] [place] [address] Nurse Practitioner Hematology/Oncology 03/26/18 Medical Accounting Clerk Relationship Specialty Start Date End Date Jd Du PA-C [address] [place] [address] PCP - General Internal Medicine 04/09/18 Jun Arriola DO Physician Hematology 03/26/18 Lorie Ozuna, ELIAS [address] [place] [address] Supervisor [employer] 03/26/18 Gianna Hodge APRN.LICENSING REPRESENTATIVE [address] [place] [address] Nurse Practitioner Hematology/Oncology 03/26/18 Medical Accounting Clerk Relationship Specialty Start Date End Date Francisca Wade MD [address] [place] [address] PCP - General Internal Medicine 07/18/24 Team Status: Inactive Member Role Status Dates Guillermo Thornton MD Attending Provider Active S tart: December 05, 2024 End: December 05, 2024 Francisca Wade MD Primary Care Provider Active S tart: December 05, 2024 End: December 05, 2024 Team Status: Inactive Member Role Status Dates Francisca Wade MD Primary Care Provider Active S tart: December 12, 2024 End: December 12, 2024 Guillermo Thornton MD Attending Provider Active S tart: December 12, 2024 End: December 12, 2024 Medical Accounting Clerk Relationship Specialty Start Date End Date Francisca Wade MD [address], [place] [id number] PCP - General Internal Medicine 12/16/24 Jun Arriola DO Physician Hematology 03/26/18 Lorie Ozuna RN [address] [place] [address] Supervisor [employer] 03/26/18 Gianna Hodge APRN.LICENSING REPRESENTATIVE [address] [facility] [place] [address] Nurse Practitioner Hematology/Oncology 03/26/18 Medical Accounting Clerk Relationship Specialty Start Date End Date Francisca Wade MD [address] [place] [address] PCP - General Internal Medicine 12/16/24 Jun Arriola DO Physician Hematology 03/26/18 Lorei Ozuna RN [address] [place] [address] Supervisor [employer] 03/26/18 Gianna Hodge, HOSPITAL CHIEF FINANCIAL OFFICER.LICENSING REPRESENTATIVE [address] [facility] [facility] [place] [place] [address] Nurse Practitioner Hematology/Oncology 03/26/18 Goals (unrecognized section and content) Goals may be documented in a n alternate section Scheduled Active and Recently Administ ered Medications (unrecognized section and content) Medication Order 01/20/2024 01/21/2024 01/22/2024 acetaminophen (TYLENOL EXTRA STRENGTH) tablet 1,000 mg 1,000 mg, oral, Every 6 hours scheduled, First dose on Mon01/17/24 at 1800 0000 (Due)0615 (Given - Provider: Lacey Singer RN)1133 (Given - Provider: George Ha, ELIAS)1731 (Given - Provider: George Ha, ELIAS)2309 (Given - Provider: Virgil Gonzalez RN) 0600 (Not Given - Provider: Virgil Gonzalez RN - Reason: Contraindicated - Comment: Max dose in 24hrs reached)1205 (Given - Provider: Chloe Vela RN)1805 (Given - Provider: Chloe Vela RN)2355 (Given - Provider: Santi Parks, ELIAS) 0539 (Given - Provider: Santi Parks RN)1135 (Given - Provider: Miranda Dudley, ELIAS)1740 (Given - Provider: Miranda Dudley, ELIAS) calcium citrate (CALCITRATE) tablet 400 mg 400 mg, oral, 3 times daily with meals, First dose on Mon01/18/24 at 1345 0904 (Given - Provider: George Ha RN)1135 (Given - Provider: George Ha RN)1604 (Given - Provider: George Ha RN) 0924 (Given - Provider: Chloe Vela RN)1205 (Given - Provider: Chloe Vela RN)1757 (Given - Provider: Chloe Vela RN) 0835 (Given - Provider: Miranda Dudley RN)1134 (Given - Provider: Miranda Dudley RN)1717 (Given - Provider: Miranda Dudley RN) carvediloL (COREG) tablet 6.25 mg 6.25 mg, oral, 2 times daily with meals, First dose on Mon01/19/24 at 0800, Give with meal or snack. Look-alike/sound-alike medication - verify indication for use. 0904 (Given - Provider: George Ha RN)1604 (Given - Provider: George Ha RN) 0925 (Given - Provider: Chloe Vela RN)1757 (Given - Provider: Chloe Vela RN) 0835 (Given - Provider: Miranda Dudley RN)1717 (Given - Provider: Miranda Dudley, ELIAS) cholecalciferol (vitamin D3) tablet 2,000 Units 2,000 Units, oral, Daily, First dose on Mon01/18/24 at 1600 0904 (Given - Provider: George Ha RN) 0925 (Given - Provider: Chloe Vela RN) 0836 (Given - Provider: Miranda Dudley RN) citalopram (CeleXA) tablet 20 mg 20 mg, oral, Daily, First dose on Mon01/17/24 at 1715, Look-alike/sound-alike medication - verify indication for use., Indications: major depressive disorder 0904 (Given - Provider: George Ha RN) 0925 (Given - Provider: Chloe Vela RN) 0836 (Given - Provider: Miranda Dudley, ELIAS) enoxaparin (LOVENOX) syringe 40 mg 40 mg, subcutaneous, Daily, First dose on Mon01/19/24 at 0600, When Creatinine Clearance 30 mL/min or greater Look-alike/sound-alike medication - verify indication for use. 0615 (Given - Provider: Lacey Singer RN) 0516 (Given - Provider: Virgil Gonzalez, ELIAS) 0539 (Given - Provider: Santi Parks, ELIAS) ergocalciferol (DRISDOL) capsule 50,000 Units 50,000 Units, oral, Weekly, First dose on Mon01/18/24 at 1345, For 8 doses fenofibrate micronized (LOFIBRA) capsule 134 mg 134 mg, oral, Daily with breakfast, First dose on Mon01/18/24 at 0800 0904 (Given - Provider: George Ha RN) 0925 (Given - Provider: Chloe Vela RN) 0836 (Given - Provider: Miranda Dudley RN) gabapentin (NEURONTIN) capsule 800 mg 800 mg, oral, 4 times daily, First dose (after last modification) on Mon01/17/24 at 2200, Look-alike/sound-alike medication - verify indication for use., Indications: neuropathic pain 0905 (Given - Provider: George Ha RN)1405 (Given - Provider: George Ha RN)1731 (Given - Provider: George Ha RN)2155 (Given - Provider: Virgil Gonzalez, ELIAS) 0925 (Given - Provider: Chloe Vela RN)1205 (Given - Provider: Chloe Vela RN)1757 (Given - Provider: Chloe Vela RN)2215 (Given - Provider: Santi Parks RN) 0836 (Given - Provider: Miranda Dudley RN)1355 (Given - Provider: Miranda Dudley RN)1717 (Given - Provider: Miranda Dudley RN) insulin lispro (HumaLOG) injection 1-4 Units 1-4 Units, subcutaneous, Nightly, First dose on Mon01/17/24 at 2200, Bedtime hyperglycemia dosing. For blood glucose 201-250 mg/dL, give 1 unit. For blood glucose 251-300 mg/dL, give 2 units. For blood glucose 301-350 mg/dL, give 3 units. For blood glucose 351-400 mg/dL, give 4 units. Give even if NPO or meals skipped. Do NOT give more often than every 4 hours when NPO. Notify prescriber if blood glucose greater than 400 mg/dL. Look-alike/sound-alike medication - verify indication for use. Prime with 2 units of insulin prior to administration. Prandial/supplemental Insulin. Pre-filled pens stable 28 days at room temperature. Insulin lispro should be administered within 15 minutes before or immediately after a meal. 2154 (Given - Provider: Virgil Gonzalez RN) 2107 (Not Given - Provider: Santi Parks RN - Reason: Patient/family refused - Comment: Patient does not want another one unit dose of Lispro) insulin lispro (HumaLOG) injection 1-5 Units 1-5 Units, subcutaneous, 3 times daily with meals, First dose on Mon01/17/24 at 1400, Daytime hyperglycemia dosing. For blood glucose 151-200 mg/dL, give 1 unit. For blood glucose 201-250 mg/dL, give 2 units. For blood glucose 251-300 mg/dL, give 3 units. For blood glucose 301-350 mg/dL, give 4 units. For blood glucose 351-400 mg/dL, give 5 units. Give even if NPO or meals skipped. Do NOT give more often than every 4 hours when NPO. Notify prescriber if blood glucose greater than 400 mg/dL. Look-alike/sound-alike medication - verify indication for use. Prime with 2 units of insulin prior to administration. Prandial/supplemental Insulin. Pre-filled pens stable 28 days at room temperature. Insulin lispro should be administered within 15 minutes before or immediately after a meal. 0800 (Not Given - Provider: George Ha RN - Reason: Order parameters not met)1250 (Given - Provider: George aH RN)1700 (Not Given - Provider: George Ha RN - Reason: Order parameters not met) 0800 (Not Given - Provider: Chloe Vela RN - Reason: Order parameters not met)1207 (Given - Provider: Chloe Vela RN)1757 (Given - Provider: Chloe Vela RN) 0800 (Not Given - Provider: Miranda Dudley RN - Reason: Order parameters not met - Comment: [id number] (Not Given - Provider: Miranda Dudley RN - Reason: Order parameters not met - Comment: [id number] (Not Given - Provider: Miranda Dudley RN - Reason: Order parameters not met - Comment: [id number]) lidocaine (LIDODERM) 5 % 1 patch 1 patch, transdermal, Administer over 12 Hours, Daily, First dose on Mon01/17/24 at 2000, Apply to intact skin at site of low back pain. Patch(es) may remain in place for up to 12 hours in any 24-hour period. Remove previous patch, if present, before applying new. 0932 (Medication Removed - Provider: George Ha RN)1999 (Hold - Provider: Virgil Gonzalez RN - Reason: Patient/family refused - Comment: Patient wants it later) 2105 (Medication Applied - Provider: Santi Parks RN - Comment: upper back) 0905 (Medication Removed - Provider: Miranda Dudley, ELIAS) losartan (COZAAR) tablet 100 mg 100 mg, oral, Daily, First dose on Mon01/19/24 at 0900, Look-alike/sound-alike medication - verify indication for use. 0905 (Given - Provider: George Ha RN) 0925 (Given - Provider: Chloe Vela RN) 0836 (Given - Provider: Miranda Dudley, ELIAS) nicotine (NICODERM CQ) 14 mg/24 hr 1 patch 1 patch, transdermal, Administer over 24 Hours, Daily, First dose on Mon01/17/24 at 1225, Remove patch prior to MRI procedure as serious coleman may occur- patch may be reapplied. Remove previous patch, if present, before applying new. 0829 (Medication Removed - Provider: Geroge Ha RN)0906 (Medication Applied - Provider: George Ha RN) 0859 (Medication Removed - Provider: Chloe Vela RN)0924 (Medication Applied - Provider: Chloe Vela RN) 0837 (Medication Applied - Provider: Miranda Dudley RN)0859 (Medication Removed - Provider: Miranda Dudley RN)1805 (Due: Medication Removed - Provider: Automatic Discharge Provider - Comment: Time automatically adjusted from order being discontinued) pantoprazole (PROTONIX) EC tablet 40 mg 40 mg, oral, Daily, First dose on Mon01/19/24 at 0745, Look-alike/sound-alike medication - verify indication for use. If patient is receiving enteral feeding, consider alternative PPI or continue IV pantoprazole until the delayed-release tablet can be taken orally, Indication: Dispense As Written (JAYESH) 0617 (Given - Provider: Lacey Singer RN) 0515 (Given - Provider: Virgil Gonzalez RN) 0539 (Given - Provider: Santi Parks, ELIAS) polyethylene glycol (GLYCOLAX) packet 17 g 17 g, oral, 2 times daily, First dose on Mon01/17/24 at 2100, Look-alike/sound-alike medication - verify indication for use. Dissolve 1 packet (17 gm) in 8 ounces of water, juice, soda, coffee or tea. 0905 (Given - Provider: George Ha RN)2100 (Not Given - Provider: Virgil Gonzalez RN - Reason: Patient/family refused) 0900 (Not Given - Provider: Chloe Vela RN - Reason: Patient/family refused)2100 (Not Given - Provider: Santi Parks RN - Reason: Patient/family refused) 0900 (Not Given - Provider: Miranda Dudley RN - Reason: Patient/family refused) rifAXIMin (XIFAXAN) tablet 550 mg 550 mg, oral, Every 12 hours scheduled, First dose on Mon01/19/24 at 0900, Look-alike/sound-alike medication - verify indication for use. 0907 (Given - Provider: George Ha RN)2155 (Given - Provider: Virgil Gonzalez RN) 0926 (Given - Provider: Chloe Vela RN)2108 (Given - Provider: Karanveer Parks, RN) 0836 (Given - Provider: Miranda Dudley RN) sennosides-docusate sodium (SENOKOT-S) 8.6-50 mg 2 tablet 2 tablet, oral, 2 times daily, First dose on Mon01/17/24 at 2100 0905 (Given - Provider: George Ha RN)2099 (Not Given - Provider: Virgil Gonzalez RN - Reason: Patient/family refused) 0900 (Not Given - Provider: Chloe Vela RN - Reason: Patient/family refused)2099 (Not Given - Provider: Santi Parks RN - Reason: Patient/family refused) 0900 (Return to [facility] - Provider: Miranda Dudley RN) tamsulosin (FLOMAX) 24 hr capsule 0.4 mg 0.4 mg, oral, Nightly, First dose on Mon01/17/24 at 2200, Do not crush or chew. 2154 (Given - Provider: Virgil Gonzalez RN) 2107 (Given - Provider: Santi Parks RN) Continuous Medication Order 01/20/2024 01/21/2024 01/22/2024 sodium chloride 0.9 % infusion 250 mL/hr, intravenous, Continuous, Starting on Mon01/17/24 at 1010, For 4 hours PRN Medication Order 01/20/2024 01/21/2024 01/22/2024 albuterol (PROVENTIL,VENTOLIN) nebulizer solution 2.5 mg 2.5 mg, nebulization, Every 6 hours PRN, wheezing, shortness of breath, Starting on Mon01/17/24 at 1714, Implement INPATIENT/ED Bronchodilator Clinical Practice Guidelines? Yes, Document: \phsi.[facility].org\epic \EPIC_Reference\Orders\Re spiratory Care Guidelines\CPG Bronchodilator 2019.pdf cyclobenzaprine (FLEXERIL) tablet 10 mg 10 mg, oral, 2 times daily PRN, muscle spasms, Starting on Mon01/17/24 at 1714 1030 (Given - Provider: Chloe Vela RN) 0717 (Given - Provider: Miranda Dudley, ELIAS) dextrose (GLUTOSE) 40 % gel 15 g 15 g, oral, As needed, low blood sugar, blood glucose less than 70 mg/dL, Starting on Mon01/17/24 at 1714, If patient conscious and taking PO. If blood glucose is not greater than 70 mg/dL after initial treatment, repeat treatment. dextrose 5 % (D5W) infusion 100 mL/hr, intravenous, Continuous PRN, blood glucose less than 70 mg/dL, Starting on Mon01/17/24 at 1714, Use immediately following dextrose 50% or glucagon treatment for patients who are unconscious or NPO. Contact prescriber for additional orders. If blood glucose is not greater than 70 mg/dL after initial treatment, repeat treatment. dextrose 50 % in water (D50W) 50% solution 25 mL 25 mL, intravenous, As needed, low blood sugar, blood glucose less than 70 mg/dL and unconscious or NPO with IV access, Starting on Mon01/17/24 at 1714, Push over 1-3 minutes STAT. If conscious and not NPO, immediately follow with meal tray or high protein (7 grams) snack if tray not available. If NPO, initiate 5% dextrose in water at 100 mL/hr and contact prescriber for additional orders. If blood glucose is not greater than 70 mg/dL after initial treatment, repeat treatment. VESICANT (RED) Warning: HYPERTONIC solution. glucagon HCL injection 1 mg 1 mg, intramuscular, As needed, low blood sugar, blood glucose less than 70 mg/dL and unconscious or NPO without IV access., Starting on Mon01/17/24 at 1714, If conscious and not NPO, immediately follow with meal tray or high protein (7Grams) snack if tray not available. If NPO, initiate IV 5% Dextrose/Water at 100 mL/hr and contact prescriber for additional orders. If blood glucose is not greater than 70 mg/dL after initial treatment, repeat treatment. HYDROmorphone (PF) (DILAUDID) injection 1 mg (CANCELED) 1 mg, intravenous, Every 2 hour PRN, severe pain - pain scale 7-10, moderate pain - pain scale 4-6, Starting on Mon01/17/24 at 1008, If IV push, administer over over 2 to 3 minutes. Look-alike/sound-alike medication - verify indication for use. 9030 (Given - Provider: Virgil Gonzalez RN)1924 (Given - Provider: George Ha RN)1133 (Given - Provider: George Ha RN)1408 (Given - Provider: George Ha RN)1731 (Given - Provider: George Ha RN)2124 (Given - Provider: Virgil Gonzalez RN) 0028 (Given - Provider: Virgil Gonzalez RN)0354 (Given - Provider: Virgil Gonzalez, RN)0750 (Given - Provider: Chloe Vela RN)1008 (Given - Provider: Chloe Vela RN)1418 (Given - Provider: Chloe Vela RN)1805 (Given - Provider: Chloe Vela RN)2101 (Given - Provider: Santi Parks, ELIAS) 0050 (Given - Provider: Santi Parks RN)0539 (Given - Provider: Santi Parks RN) ibuprofen (MOTRIN) tablet 800 mg 800 mg, oral, Every 6 hours PRN, mild pain - pain scale 1-3, Starting on Mon01/17/24 at 1714, Look-alike/sound-alike medication - verify indication for use. Take/Give with food or milk. 1030 (Given - Provider: Chloe Vela RN) magnesium sulfate IVPB 2000 mg/50 mL in iso-osmotic water (40 mg/mL premix) 2,000 mg, intravenous, at 25 mL/hr, Administer over 120 Minutes, As needed, Magnesium level 1.7 to 1.9 mg/dL, or Ionized Magnesium level 0.45 to 0.5 mmol/L., Starting on Mon01/17/24 at 1111, Recheck magnesium level 4 hours after infusion complete. With each magnesium result continue the replacement orders as needed. 0933 (New Bag - Provider: Chloe Vela RN)1133 (Stop Bag - Provider: Chloe Vela RN) magnesium sulfate IVPB 4000 mg/100 mL in iso-osmotic water (40 mg/mL premix) 4,000 mg, intravenous, at 25 mL/hr, Administer over 240 Minutes, As needed, Magnesium level 1.6 mg/dL or less, or Ionized Magnesium level 0.44 mmol/L or less, Starting on Mon01/17/24 at 1111, Recheck magnesium level 4 hours after infusion complete. With each magnesium result continue the replacement orders as needed. 2206 (New Bag - Provider: Virgil Gonzalez RN)2221 (Paused - Provider: Chloe Vela, RN)2225 (Restarted - Provider: Chloe Vela RN) 0028 (Paused - Provider: Chloe Vela RN)0030 (Restarted - Provider: Chloe Vela RN)0206 (Stop Bag - Provider: Virgil Gonzalez RN) 1020 (New Bag - Provider: Miranda Dudley, ELIAS)1420 (Stop Bag - Provider: Miranda Dudley RN) melatonin (CIRCADIN) tablet 3 mg 3 mg, oral, Nightly PRN, sleep, Starting on Mon01/17/24 at 1714, Give before trazodone ondansetron (PF) (ZOFRAN) injection 4 mg 4 mg, intravenous, Every 4 hours PRN, nausea, Starting on Mon01/17/24 at 1714, Administer over 2-5 minutes., Intravenous Specific Administration: IV Push oxyCODONE (ROXICODONE) immediate release tablet 10 mg 10 mg, oral, Every 3 hours PRN, severe pain - pain scale 7-10, Starting on Mon01/19/24 at 1010, For patients less than 75 years of age Recommend minimized narcotics, while still providing adequate analgesia, to minimize risk of sedation and delirium. The oral route is preferred for patients tolerating oral intake without nausea and vomiting. Use IV pain medications if the oral route is ineffective for symptom control, or if patient unable to take medications orally. Look-alike/sound-alike medication - verify indication for use. Immediate release. 0217 (Given - Provider: Selvin Tian RN)0649 (Given - Provider: Virgil Gonzalez RN)1248 (Given - Provider: George Ha, RN)1604 (Given - Provider: George Ha, RN)2308 (Given - Provider: Virgil Gonzalez RN) 0514 (Given - Provider: Virgil Gonzalez RN)0923 (Given - Provider: Chloe Vela, ELIAS)1204 (Given - Provider: Chloe Vela, RN)1534 (Given - Provider: Chloe Vela, ELIAS)2220 (Given - Provider: Santi Parks RN) 0232 (Given - Provider: Santi Parks RN)0717 (Given - Provider: Miranda Dudley, RN)1135 (Given - Provider: Miranda Dudley, RN)1447 (Given - Provider: Miranda Dudley, ELIAS)1740 (Given - Provider: Miranda Dudley, RN) oxyCODONE (ROXICODONE) immediate release tablet 5 mg 5 mg, oral, Every 3 hours PRN, moderate pain - pain scale 4-6, Starting on Mon01/19/24 at 1010, For patients less than 75 years of age Recommend minimized narcotics, while still providing adequate analgesia, to minimize risk of sedation and delirium. The oral route is preferred for patients tolerating oral intake without nausea and vomiting. Use IV pain medications if the oral route is ineffective for symptom control, or if patient unable to take medications orally. Look-alike/sound-alike medication - verify indication for use. Immediate release. potassium chloride (K-TAB,KLOR-CON) CR tablet 30-50 mEq(Linked Group 1) 30-50 mEq, oral, As needed, potassium supplementation, Starting on Mon01/17/24 at 1110, Progress to oral potassium replacement when patient tolerating oral intake. If dose administered, recheck potassium level 4 hours after last dose. For potassium level 3.4 to 3.8 mmol/L and GFR 30 mL/min or greater=30 mEq. For potassium level 3.1 to 3.3 mmol/L and GFR 30 mL/min or greater=40 mEq. For potassium level 3 mmol/L or less and GFR 30 mL/min or greater=50 mEq. Do not crush or chew. potassium chloride (KAYCIEL) 20 mEq/15 mL solution 30-50 mEq(Linked Group 1) 30-50 mEq, oral, As needed, potassium supplementation, Starting on Mon01/17/24 at 1110, Progress to oral potassium replacement when patient tolerating oral intake. If dose administered, recheck potassium level 4 hours after last dose. For potassium level 3.4 to 3.8 mmol/L and GFR 30 mL/min or greater=30 mEq. For potassium level 3.1 to 3.3 mmol/L and GFR 30 mL/min or greater=40 mEq. For potassium level 3 mmol/L or less and GFR 30 mL/min or greater=50 mEq. Must dilute before use - Mix in 3-8 ounces of water or juice before administration When administering in feeding tube, flush before and after per policy and monitor potassium levels Linked Groups Order Group 1: potassium chloride (K-TAB,KLOR-CON) CR tablet 30-50 mEqJump to med 30-50 mEq, oral, As needed, potassium supplementation, Starting on Mon01/17/24 at 1110, Progress to oral potassium replacement when patient tolerating oral intake. If dose administered, recheck potassium level 4 hours after last dose. For potassium level 3.4 to 3.8 mmol/L and GFR 30 mL/min or greater=30 mEq. For potassium level 3.1 to 3.3 mmol/L and GFR 30 mL/min or greater=40 mEq. For potassium level 3 mmol/L or less and GFR 30 mL/min or greater=50 mEq. Do not crush or chew. Or potassium chloride (KAYCIEL) 20 mEq/15 mL solution 30-50 mEqJump to med 30-50 mEq, oral, As needed, potassium supplementation, Starting on Mon01/17/24 at 1110, Progress to oral potassium replacement when patient tolerating oral intake. If dose administered, recheck potassium level 4 hours after last dose. For potassium level 3.4 to 3.8 mmol/L and GFR 30 mL/min or greater=30 mEq. For potassium level 3.1 to 3.3 mmol/L and GFR 30 mL/min or greater=40 mEq. For potassium level 3 mmol/L or less and GFR 30 mL/min or greater=50 mEq. Must dilute before use - Mix in 3-8 ounces of water or juice before administration When administering in feeding tube, flush before and after per policy and monitor potassium levels Scheduled Medication Order 02/01/2024 02/02/2024 02/03/2024 acetaminophen (TYLENOL EXTRA STRENGTH) tablet 1,000 mg 1,000 mg, oral, Every 8 hours, First dose on Mon01/29/24 at 1200, Recommend minimized narcotics, while still providing adequate analgesia, to minimize risk of sedation and delirium. The oral route is preferred for patients tolerating oral intake without nausea and vomiting. Use IV pain medications if the oral route is ineffective for symptom control, or if patient unable to take medications orally. 0417 (Given - Provider: Santi Parks RN)1140 (Given - Provider: Antionette Smith RN)2014 (Given - Provider: Lcaey Singer, ELIAS) 0222 (Given - Provider: Laecy Singer RN)0400 (Not Given - Provider: Lacey Singer RN - Reason: Other - Comment: check other admin)1219 (Given - Provider: Lian Silva RN)1943 (Given - Provider: Carin Contreras RN) 0516 (Given - Provider: Carin Contreras RN)1232 (Given - Provider: Lian Silva RN)2000 (Due) calcium citrate (CALCITRATE) tablet 400 mg 400 mg, oral, 3 times daily with meals, First dose on Mon01/29/24 at 1200 0803 (Given - Provider: Antionette Smith RN)1142 (Given - Provider: Antionette Smith RN)1612 (Given - Provider: Antionette Smith RN) 0839 (Given - Provider: Lian Silva RN)1222 (Given - Provider: Lian Silva RN)1615 (Given - Provider: Lian Silva RN) 0820 (Given - Provider: Lian Silva RN)1232 (Given - Provider: Lian Silva RN)1700 (Due) carvediloL (COREG) tablet 6.25 mg 6.25 mg, oral, 2 times daily with meals, First dose on Mon01/29/24 at 1200, Give with meal or snack. Look-alike/sound-alike medication - verify indication for use. 1142 (Given - Provider: Antionette Smith RN)1700 (Not Given - Provider: Antionette Smith RN - Reason: Patient/family refused) 1330 (Not Given - Provider: Lian Silva RN - Reason: Patient/family refused - Comment: retimmed per pt request stating I normally take that med. at 1:30 when I'm at home )2200 (Not Given - Provider: Carin Contreras RN - Reason: Patient/family refused) 0800 (Hold - Provider: Lian Silva RN - Reason: Patient/family refused)1700 (Due) cholecalciferol (vitamin D3) tablet 2,000 Units 2,000 Units, oral, Daily, First dose on Mon01/29/24 at 1200 0804 (Given - Provider: Antionette Smith RN) 0839 (Given - Provider: Lian Silva RN) 0821 (Given - Provider: Lian Silva RN) citalopram (CeleXA) tablet 20 mg 20 mg, oral, Daily, First dose on Mon01/29/24 at 1200, Look-alike/sound-alike medication - verify indication for use., Indications: major depressive disorder 0804 (Given - Provider: Antionette Smith RN) 0839 (Given - Provider: Lian Silva RN) 0821 (Given - Provider: Lian Silva RN) cyanocobalamin tablet 1,000 mcg 1,000 mcg, oral, Daily, First dose on Mon01/29/24 at 1345 0804 (Given - Provider: Antionette Smith RN) 0839 (Given - Provider: Lian Silva RN) 0821 (Given - Provider: Lian Silva RN) enoxaparin (LOVENOX) syringe 40 mg 40 mg, subcutaneous, Daily, First dose on Mon01/30/24 at 0600, When Creatinine Clearance 30 mL/min or greater Look-alike/sound-alike medication - verify indication for use. 0617 (Given - Provider: Santi Parks RN) 0521 (Given - Provider: Lacey Singer RN) 0516 (Given - Provider: Carin Contreras RN) ergocalciferol (DRISDOL) capsule 50,000 Units 50,000 Units, oral, Weekly, First dose on Mon01/29/24 at 1200 ferrous sulfate tablet 325 mg 325 mg, oral, Daily with breakfast, First dose on Mon02/03/24 at 1045, Give ferrous sulfate 2 hours before or 4 hours after antacids. 1045 (Hold - Provider: Lian Silva RN - Reason: Medication not available)1240 (Given - Provider: Lian Silva RN) folic acid (FOLVITE) tablet 1 mg 1 mg, oral, Daily, First dose on Mon01/29/24 at 1345, Look-alike/sound-alike medication - verify indication for use. 0804 (Given - Provider: Antionette Smith RN) 0841 (Given - Provider: Lian Silva RN) 0821 (Given - Provider: Lian Silva RN) furosemide (LASIX) injection 40 mg (COMPLETED) 40 mg, intravenous, Once, On Mon02/01/24 at 1030, For 1 dose, Look-alike/sound-alike medication - verify indication for use. IVP rate = 20 mg/min 1140 (Given - Provider: Antionette Smith RN) gabapentin (NEURONTIN) tablet 800 mg 800 mg, oral, 3 times daily, First dose on Mon01/29/24 at 1400, Look-alike/sound-alike medication - verify indication for use., Indications: neuropathic pain 0617 (Given - Provider: Santi Parks RN)1309 (Given - Provider: Antionette Smith RN)2016 (Given - Provider: Lacey Singer RN) 0520 (Given - Provider: Lacey Singer RN)1444 (Given - Provider: Lian Silva RN)2122 (Given - Provider: Carin Contreras, ELIAS) 0516 (Given - Provider: Carin Contreras RN)1357 (Given - Provider: Lian Silva RN)2200 (Due) HYDROmorphone (PF) (DILAUDID) injection 1 mg (COMPLETED) 1 mg, intravenous, Once, On Mon02/02/24 at 0945, For 1 dose, If IV push, administer over over 2 to 3 minutes. Look-alike/sound-alike medication - verify indication for use. 0955 (Given - Provider: Lian Silva RN) hyoscyamine sulfate (LEVSIN) tablet 125 mcg 125 mcg, oral, 4 times daily, First dose on Mon01/29/24 at 1300 0805 (Given - Provider: Antionette Smith RN)1309 (Given - Provider: Antionette Smith, RN)1612 (Given - Provider: Antionette Smith RN)2016 (Given - Provider: Lacey Singer RN) 0841 (Given - Provider: Lian Silva RN)1224 (Given - Provider: Lian Silva RN)1615 (Given - Provider: Lian Silva RN)2122 (Given - Provider: Carin Contreras RN) 0820 (Given - Provider: Lina Silva RN)1231 (Given - Provider: Lian Silva RN)1700 (Due)2200 (Due) insulin glargine (LANTUS, SEMGLEE) injection pen 20 Units 20 Units, subcutaneous, Daily, First dose on Mon01/29/24 at 1200, Look-alike/sound-alike medication - verify indication for use. Prime with 2 units of insulin prior to administration. Basal (long acting) insulin for subcutaneous administration only. Do not mix with any other insulin. Pre-filled pens stable 28 days at room temperature. 0815 (Given - Provider: Antionette Smith RN) 0847 (Given - Provider: Lian Silva RN) 0835 (Given - Provider: Lian Silva RN) insulin lispro (HumaLOG) injection 1-5 Units 1-5 Units, subcutaneous, 3 times daily with meals, First dose on Mon01/29/24 at 1200, Please give 1 units per 15 grams of carbohydrates up to 5 units per 75 grams of carbohydrates within 15 minutes of finishing meals together with correction insulin when needed. Notify prescriber if blood glucose greater than 400 mg/dL. Look-alike/sound-alike medication - verify indication for use. Prime with 2 units of insulin prior to administration. Prandial/supplemental Insulin. Pre-filled pens stable 28 days at room temperature. Insulin lispro should be administered within 15 minutes before or immediately after a meal. 0800 (Not Given - Provider: Antionette Smith RN - Reason: Patient/family refused - Comment: patient did not eat breakfast)1200 (Not Given - Provider: Antionette Smith RN - Reason: Patient/family refused)1741 (Given - Provider: Antionette Smith RN - Comment: 30g carbs) 0800 (Not Given - Provider: Lian Silva RN - Reason: Patient/family refused - Comment: not having breakfast )1228 (Given - Provider: Lian Silva RN)1700 (Not Given - Provider: Lian Silva RN - Reason: Patient/family refused - Comment: Not eating meal) 0800 (Not Given - Provider: Lian Silva RN - Reason: Patient/family refused)1200 (Not Given - Provider: Lian Silva RN - Reason: Patient/family refused)1700 (Due) insulin lispro (HumaLOG) injection 1-5 Units 1-5 Units, subcutaneous, 3 times daily with meals, First dose on Mon02/03/24 at 1200, Daytime hyperglycemia dosing. For blood glucose 151-200 mg/dL, give 1 unit. For blood glucose 201-250 mg/dL, give 2 units. For blood glucose 251-300 mg/dL, give 3 units. For blood glucose 301-350 mg/dL, give 4 units. For blood glucose 351-400 mg/dL, give 5 units. Give even if NPO or meals skipped. Do NOT give more often than every 4 hours when NPO. Notify prescriber if blood glucose greater than 400 mg/dL. Look-alike/sound-alike medication - verify indication for use. Prime with 2 units of insulin prior to administration. Prandial/supplemental Insulin. Pre-filled pens stable 28 days at room temperature. Insulin lispro should be administered within 15 minutes before or immediately after a meal. 1200 (Not Given - Provider: Lian Silva RN - Reason: Patient/family refused)1700 (Due) insulin lispro (HumaLOG) injection 2-10 Units (CANCELED) 2-10 Units, subcutaneous, 3 times daily with meals, First dose on 01/29/24 at 1200, Daytime hyperglycemia dosing. For blood glucose 151-200 mg/dL, give 2 units. For blood glucose 201-250 mg/dL, give 4 units. For blood glucose 251-300 mg/dL, give 6 units. For blood glucose 301-350 mg/dL, give 8 units. For blood glucose 351-400 mg/dL, give 10 units. Give even if NPO or meals skipped. Do NOT give more often then every 4 hours when NPO. Notify prescriber if blood glucose greater than 400 mg/dL. Look-alike/sound-alike medication - verify indication for use. Prime with 2 units of insulin prior to administration. Prandial/supplemental Insulin. Pre-filled pens stable 28 days at room temperature. Insulin lispro should be administered within 15 minutes before or immediately after a meal. 0800 (Not Given - Provider: Antionette Smith RN - Reason: Order parameters not met)1200 (Not Given - Provider: Antionette Smith RN - Reason: Order parameters not met)1742 (Given - Provider: Antionette Smith RN) 0800 (Not Given - Provider: iLan Silva RN - Reason: Order parameters not met)1226 (Given - Provider: Lian Silva RN)1700 (Not Given - Provider: Lian Silva RN - Reason: Order parameters not met) 0835 (Given - Provider: Lian Silva RN) insulin lispro (HumaLOG) injection 2-8 Units 2-8 Units, subcutaneous, Nightly, First dose on Mon01/29/24 at 2200, Bedtime hyperglycemia dosing. For blood glucose 201-250 mg/dL, give 2 units. For blood glucose 251-300 mg/dL, give 4 units. For blood glucose 301-350 mg/dL, give 6 units. For blood glucose 351-400 mg/dL, give 8 units. Give even if NPO or meals skipped. Do NOT give more often then every 4 hours when NPO. Notify prescriber if blood glucose greater than 400 mg/dL. Look-alike/sound-alike medication - verify indication for use. Prime with 2 units of insulin prior to administration. Prandial/supplemental Insulin. Pre-filled pens stable 28 days at room temperature. Insulin lispro should be administered within 15 minutes before or immediately after a meal. 2200 (Not Given - Provider: Lacey Singer RN - Reason: Order parameters not met) 2200 (Not Given - Provider: Carin Contreras RN - Reason: Order parameters not met) 2200 (Due) losartan (COZAAR) tablet 50 mg 50 mg, oral, Daily, First dose (after last modification) on Mon01/30/24 at 0900, Hold for sbp less 120 Look-alike/sound-alike medication - verify indication for use. 0037 (Given - Provider: Santi Parks RN)2015 (Given - Provider: Lacey Singer RN) 2300 (Not Given - Provider: Carin Contreras, ELIAS - Reason: Patient/family refused) 2300 (Due - Provider: Bertha Avalos [facility]) magnesium oxide (MAGOX) tablet 400 mg 400 mg, oral, Daily, First dose on Mon01/29/24 at 1200 0805 (Given - Provider: Antionette Smith RN) 0841 (Given - Provider: Lian Silva RN) 08 (Given - Provider: Lian Silva RN) pantoprazole (PROTONIX) EC tablet 40 mg 40 mg, oral, Daily, First dose on Mon01/30/24 at 0600, Look-alike/sound-alike medication - verify indication for use. If patient is receiving enteral feeding, consider alternative PPI or continue IV pantoprazole until the delayed-release tablet can be taken orally, Indication: Peptic Ulcer Disease (PUD) 0617 (Given - Provider: Santi Parks RN) 0520 (Given - Provider: Lacey Singer RN) 0516 (Given - Provider: Carin Contreras, ELIAS) rifAXIMin (XIFAXAN) tablet 550 mg 550 mg, oral, Every 12 hours scheduled, First dose on Mon01/29/24 at 1200, Look-alike/sound-alike medication - verify indication for use. 0805 (Given - Provider: Antionette Smith RN)2015 (Given - Provider: Lacey Singer RN) 0900 (Hold - Provider: Lian Silva RN - Reason: Medication not available)1219 (Given - Provider: Lian Silva RN)212 (Given - Provider: Carin Contreras, ELIAS) 08 (Given - Provider: Lian Silva RN)2100 (Due) sennosides-docusate sodium (SENOKOT-S) 8.6-50 mg 2 tablet 2 tablet, oral, Nightly, First dose on Mon01/29/24 at 2200 2014 (Given - Provider: Lacey Singer RN) 220 (Not Given - Provider: Carin Contreras RN - Reason: Patient/family refused) 2199 (Due) sucralfate (CARAFATE) tablet 1 g 1 g, oral, 4 times daily, First dose on Mon01/29/24 at 1300, Administer with water on an empty stomach. To reduce the potential of adversely affecting the absorption of other drugs, administer other drugs 2 hours prior to sucralfate DO NOT give with enteral feedings- consider alternative agents: PPI or H2 receptor antagonist 0802 (Given - Provider: Antionette Smith RN)1309 (Given - Provider: Antionette mSith RN)161 (Given - Provider: Antionette Smith RN)2014 (Given - Provider: Lacey Singer RN) 0840 (Given - Provider: Lian Silva RN)1223 (Given - Provider: Lian Silva RN)1615 (Given - Provider: Lian Silva RN)212 (Given - Provider: Carin Contreras RN) 0821 (Given - Provider: Lian Silva RN)1232 (Given - Provider: Lian Silva RN)1700 (Due)2199 (Due) tamsulosin (FLOMAX) 24 hr capsule 0.4 mg 0.4 mg, oral, Nightly, First dose on Mon01/29/24 at 2200, Do not crush or chew. 2015 (Given - Provider: Lacey Singer RN) 2121 (Given - Provider: Carin Contreras RN) 2199 (Due) traZODone (DESYREL) tablet 50 mg 50 mg, oral, Nightly, First dose on Mon01/29/24 at 2200, Look-alike/sound-alike medication - verify indication for use. 36 (Given - Provider: Santi Parks RN - Comment: Per pt request)2015 (Given - Provider: Lacey Singer RN) 103 (Given - Provider: Carin Contreras RN - Comment: per patient)2199 (Due) PRN Medication Order 02/01/2024 02/02/2024 02/03/2024 cyclobenzaprine (FLEXERIL) tablet 10 mg 10 mg, oral, 2 times daily PRN, muscle spasms, Starting on 01/29/24 at 1151 0037 (Given - Provider: Santi Parks RN) 0836 (Given - Provider: Lian Silva, ELIAS)2122 (Given - Provider: Carin Contreras RN) [facility]: Lian Silva RN - Comment: pt refused) dextrose (GLUTOSE) 40 % gel 15 g 15 g, oral, As needed, low blood sugar, blood glucose less than 70 mg/dL, Starting on Mon01/29/24 at 1151, If patient conscious and taking PO. If blood glucose is not greater than 70 mg/dL after initial treatment, repeat treatment. dextrose 5 % (D5W) infusion 100 mL/hr, intravenous, Continuous PRN, blood glucose less than 70 mg/dL, Starting on 02/03/24 at 1101, Use immediately following dextrose 50% or glucagon treatment for patients who are unconscious or NPO. Contact prescriber for additional orders. If blood glucose is not greater than 70 mg/dL after initial treatment, repeat treatment. dextrose 50 % in water (D50W) 50% solution 25 mL 25 mL, intravenous, As needed, low blood sugar, blood glucose less than 70 mg/dL and unconscious or NPO with IV access, Starting on 02/03/24 at 1101, Push over 1-3 minutes STAT. If conscious and not NPO, immediately follow with meal tray or high protein (7 grams) snack if tray not available. If NPO, initiate 5% dextrose in water at 100 mL/hr and contact prescriber for additional orders. If blood glucose is not greater than 70 mg/dL after initial treatment, repeat treatment. VESICANT (RED) Warning: HYPERTONIC solution. glucagon HCL injection 1 mg 1 mg, intramuscular, As needed, low blood sugar, blood glucose less than 70 mg/dL and unconscious or NPO without IV access., Starting on 02/03/24 at 1101, If conscious and not NPO, immediately follow with meal tray or high protein (7Grams) snack if tray not available. If NPO, initiate IV 5% Dextrose/Water at 100 mL/hr and contact prescriber for additional orders. If blood glucose is not greater than 70 mg/dL after initial treatment, repeat treatment. hydrALAZINE (APRESOLINE) injection 10 mg 10 mg, intravenous, Every 6 hours PRN, high blood pressure, Starting on Mon01/29/24 at 1151, For systolic blood pressure greater than 170 mmHg Look-alike/sound-alike medication - verify indication for use. Administer IV doses as a slow IV push; maximum rate: 5 mg/minute. HYDROmorphone (PF) (DILAUDID) injection 1 mg 1 mg, intravenous, Every 3 hours PRN, pain unresponsive to oral analgesic medication, breakthrough pain, or patients who are unable to take PO, Starting on Mon01/30/24 at 1237, If IV push, administer over over 2 to 3 minutes. Look-alike/sound-alike medication - verify indication for use. 0417 (Given - Provider: Santi Parks RN)0949 (Given - Provider: Antionette Smith, ELIAS)1310 (Given - Provider: Antionette Smith, ELIAS)1751 (Given - Provider: Antionette Smith, ELIAS)2117 (Given - Provider: Lacey Singer, ELIAS) 0221 (Not Given - Provider: Lacey Singer RN - Reason: Loss of IV access - Comment: returned to [employer] due to loss of IV access)1611 (Given - Provider: Lian Silva RN) ipratropium-albuteroL (DUONEB) 0.5 mg-3 mg(2.5 mg base)/3 mL nebulizer solution 3 mL 3 mL, nebulization, Every 6 hours PRN, wheezing, Starting on Mon01/29/24 at 1151, Implement INPATIENT/ED Bronchodilator Clinical Practice Guidelines? Yes, Document: [email or web address] \EPIC_Reference\Orders\Re spiratory Care Guidelines\CPG Bronchodilator 2020.pdf naloxone (NARCAN) injection 0.2 mg 0.2 mg, intravenous, As needed, respiratory depression, opioid reversal, Starting on Mon01/30/24 at 2216, Look-alike/sound-alike medication - verify indication for use. ondansetron (PF) (ZOFRAN) injection 4 mg 4 mg, intravenous, Every 4 hours PRN, nausea, Starting on Mon01/29/24 at 1151, Administer over 2-5 minutes., Intravenous Specific Administration: IV Push oxyCODONE (ROXICODONE) immediate release tablet 10 mg (CANCELED) 10 mg, oral, Every 4 hours PRN, severe pain - pain scale 7-10, Starting on Mon01/29/24 at 1151, For patients less than 75 years of age Recommend minimized narcotics, while still providing adequate analgesia, to minimize risk of sedation and delirium. The oral route is preferred for patients tolerating oral intake without nausea and vomiting. Use IV pain medications if the oral route is ineffective for symptom control, or if patient unable to take medications orally. Look-alike/sound-alike medication - verify indication for use. Immediate release. 0313 (Given - Provider: Dionisio Ware RN)0811 (Given - Provider: Antionette Smith RN)1207 (Given - Provider: Antionette Smith RN)1611 (Given - Provider: Antionette Smith RN)2019 (Given - Provider: Lacey Singer RN)2351 (Given - Provider: Lacey Singer RN) 0521 (Given - Provider: Lacey Singer RN)0918 (Given - Provider: Lian Silva RN) oxyCODONE (ROXICODONE) immediate release tablet 10 mg 10 mg, oral, Every 3 hours PRN, severe pain - pain scale 7-10, Starting on Mon02/02/24 at 1151, For patients less than 75 years of age Recommend minimized narcotics, while still providing adequate analgesia, to minimize risk of sedation and delirium. The oral route is preferred for patients tolerating oral intake without nausea and vomiting. Use IV pain medications if the oral route is ineffective for symptom control, or if patient unable to take medications orally. Look-alike/sound-alike medication - verify indication for use. Immediate release. 1218 (Given - Provider: Lian Silva RN)1444 (Given - Provider: Lian Silva RN)1831 (Given - Provider: Lian Silva RN)2122 (Given - Provider: Carin Contreras RN) 0105 (Given - Provider: Carin Contreras RN)0516 (Given - Provider: Carin Contreras RN)0814 (Given - Provider: Lian Silva RN)1044 (Given - Provider: Lian Silva RN)1357 (Given - Provider: Lian Silva RN) oxyCODONE (ROXICODONE) immediate release tablet 5 mg 5 mg, oral, Every 3 hours PRN, mild to moderate pain - pain scale 1-6, Starting on Mon02/02/24 at 1151, For patients less than 75 years of age Recommend minimized narcotics, while still providing adequate analgesia, to minimize risk of sedation and delirium. The oral route is preferred for patients tolerating oral intake without nausea and vomiting. Use IV pain medications if the oral route is ineffective for symptom control, or if patient unable to take medications orally. Look-alike/sound-alike medication - verify indication for use. Immediate release. sodium chloride 0.9 % flush 3 mL 3 mL, intravenous, As needed, line care, before and after each intermittent use, Starting on Mon01/29/24 at 1013 1209 (Given - Provider: Antionette Smith RN) 1612 (Given - Provider: Lian Silva RN)2127 (Given - Provider: Carin Contreras RN) Source Comments (unrecognize d section and content) In the event this informatio n is protected by the Federal Confidentiality of Alcohol and Drug Abuse Patient Records regulations: The Federal rules restrict any use of the information to criminally investigate or prosecute any alcohol or drug abuse patient.[facility] the event this information is protected by the Federal Confidentiality of Alcohol and Drug Abuse Patient Records regulations: The Federal rules restrict any use of the information to criminally investigate or prosecute any alcohol or drug abuse patient.[facility] the event this information is protected by the Federal Confidentiality of Alcohol and Drug Abuse Patient Records regulations: The Federal rules restrict any use of the information to criminally investigate or prosecute any alcohol or drug abuse patient.[facility] the event this information is protected by the Federal Confidentiality of Alcohol and Drug Abuse Patient Records regulations: The Federal rules restrict any use of the information to criminally investigate or prosecute any alcohol or drug abuse patient.[facility] the event this information is protected by the Federal Confidentiality of Alcohol and Drug Abuse Patient Records regulations: The Federal rules restrict any use of the information to criminally investigate or prosecute any alcohol or drug abuse patient.[facility] the event this information is protected by the Federal Confidentiality of Alcohol and Drug Abuse Patient Records regulations: The Federal rules restrict any use of the information to criminally investigate or prosecute any alcohol or drug abuse patient.[facility] the event this information is protected by the Federal Confidentiality of Alcohol and Drug Abuse Patient Records regulations: The Federal rules restrict any use of the information to criminally investigate or prosecute any alcohol or drug abuse patient.[facility] the event this information is protected by the Federal Confidentiality of Alcohol and Drug Abuse Patient Records regulations: The Federal rules restrict any use of the information to criminally investigate or prosecute any alcohol or drug abuse patient.[facility] FOR RECORDS PERTAINING TO PATIENTS WHO ARE OR HAVE BEEN ENROLLED IN A CHEMICAL DEPENDENCY/SUBSTANCEABUSE PROGRAM, SOME INFORMATION MAY BE OMITTED. This clinical summary was aggregated from multiple sources. Caution should be exercised in using it in the provision of clinical care. This summary normalizes information from multiple sources, and as a consequence, information in this document may materially change the coding, format and clinical context of patient data. In addition, data may be omitted in some cases. CLINICAL DECISIONS SHOULD BE BASED ON THE PRIMARY CLINICAL RECORDS. [facility] [employer] [facility]. provides no warranty or guarantee of the accuracy or completeness of information in this document.
--- NOTE | 2024-12-27 21:25 | ED.GENADUL1 ---
HPI HPI - General Adult General Chief complaint: Extremity Problem, Nontraumatic Stated complaint: LOWER PAIN FROM BACK ON DOWN/ NECK PAIN WELL Time Seen by Provider: 12/27/24 21:06 Source: patient Mode of arrival: walk-in Limitations: no limitations History of Present Illness HPI narrative: patient has chronic back pain. Describes trauma a year ago with fracture of his pelvis. Has received injections at [facility] for his back pain. States received injection 2 weeks ago and now has increased pain radiating down his leg. Received injection lower L spine. Able to ambulate but is painful. Also has diabetic neuropathy. No fever Related Data Home Medications ?Medication ?Instructions ?Recorded ?Confirmed albuterol sulfate 90 mcg/actuation 2 inh inhalation Q6H PRN shortness 10/08/24 12/27/24 aerosol inhaler (Ventolin HFA) of breath or wheezing carvedilol 3.125 mg tablet 6.25 mg PO Q12H 10/08/24 12/27/24 citalopram 20 mg tablet 40 mg PO DAILY 10/08/24 12/27/24 colestipol 1 gram tablet 1 g PO DAILY 10/08/24 12/27/24 cyclobenzaprine 10 mg tablet 10 mg PO Q12H PRN spasms 10/08/24 12/27/24 eluxadoline 100 mg tablet (Viberzi) 100 mg PO BID 10/08/24 12/27/24 fenofibrate 160 mg tablet 160 mg PO DAILY 10/08/24 12/27/24 hydrochlorothiazide 25 mg tablet 25 mg PO DAILY 10/08/24 12/27/24 hyoscyamine sulfate 0.125 mg tablet 0.125 mg PO Q6H 10/08/24 12/27/24 insulin aspart 1 sliding scale dose subcut 10/08/24 12/27/24 (niacinamide)(U-100) 100 unit/mL(3 USEASDIRECTD mL) subcutaneous pen (Fiasp FlexTouch U-100 Insulin) insulin degludec 100 unit/mL (3 20 unit subcut DAILY 10/08/24 12/27/24 mL) subcutaneous pen (Tresiba FlexTouch U-100 insulin) linagliptin 2.5 mg-metformin 1,000 1 tab PO BID 10/08/24 12/27/24 mg tablet (Jentadueto) losartan 50 mg tablet 50 mg PO DAILY 10/08/24 12/27/24 magnesium oxide 400 mg (241.3 mg 400 mg PO DAILY 10/08/24 12/27/24 magnesium) tablet omeprazole 40 mg capsule,delayed 40 mg PO DAILY 10/08/24 12/27/24 release ondansetron 4 mg disintegrating 4 mg translingual Q8H PRN nausea 10/08/24 12/27/24 tablet and vomiting rifaximin 550 mg tablet (Xifaxan) 550 mg PO BID 10/08/24 12/27/24 semaglutide 0.25 mg or 0.5 mg (2 0.5 mg subcut QWEEK 10/08/24 12/27/24 mg/3 mL) subcutaneous pen injector (Ozempic) sucralfate 1 gram tablet 1 g PO Q6H 10/08/24 12/27/24 tamsulosin 0.4 mg capsule 0.4 mg PO Q24H 10/08/24 12/27/24 trazodone 50 mg tablet 50 mg PO DAILY 10/08/24 12/27/24 gabapentin 300 mg capsule 400 mg PO TID 12/27/24 12/27/24 Allergies Allergy/AdvReac Type Severity Reaction Status Date / Time clindamycin Allergy Nausea Verified 12/27/24 21:04 insulin glargine (From Allergy Nausea Verified 12/27/24 21:04 Basamanda Cobos U-100 Insulin) Opioid HPI Opioid Management Most Recent Opioid Data: Last Pain Scale 9 12/27/24, 21:10 Review of Systems ROS Status of ROS 10 or more systems reviewed and unremarkable except as noted in history and below [facility] Medical History (Updated 12/27/24 @ 23:39 by Alek Panchal MD) Diabetes ?E11.9 - Type 2 diabetes mellitus without complications (ICD-10) Exam Constitutional Vital Signs, click to edit/add: Last Vital Signs Temp 98.0 F 12/27/24 21:04 Pulse 85 12/28/24 00:04 Resp 18 12/28/24 00:04 BP 151/87 H 12/28/24 00:04 Pulse Ox 95 12/28/24 00:04 O2 Del Method Room Air 12/28/24 00:04 Common normals: no apparent distress, average body habitus, oriented x3, no limitations, healthy appearing, alert and well nourished [facility] Common normals: normocephalic and head/scalp atraumatic Eye Common normals: PERRL, EOMs intact bilaterally and conjunctivae normal Respiratory Common normals: normal respiratory effort, no retractions, no use of accessory muscles and clear to auscultation bilaterally Cardio Common normals: regular rate, regular rhythm, S1 normal heart sound and S2 normal heart sound GI Common normals: Normal to inspection, nondistended, normoactive bowel sounds present, soft to palpation and non-tender Back & Pelvis Other: mild L-spine tenderness. Mod right SI tenderness Neuro Common normals: oriented x3, CN's II-XII intact bilaterally, moves all extremities and no focal motor deficits Psych Appearance: grossly normal Course Vital Signs Vital signs: Vital Signs Temperature 98.0 F 12/27/24 21:04 Pulse Rate 82 12/27/24 21:04 Respiratory Rate 16 12/27/24 21:04 Blood Pressure 150/99 H 12/27/24 21:04 Pulse Oximetry 95 12/27/24 21:04 Oxygen Delivery Method Room Air 12/27/24 21:04 Temperature 98.0 F 12/27/24 21:04 Pulse Rate 85 12/28/24 00:04 Respiratory Rate 18 12/28/24 00:04 Blood Pressure 151/87 H 12/28/24 00:04 Pulse Oximetry 95 12/28/24 00:04 Oxygen Delivery Method Room Air 12/28/24 00:04 Medical Decision Making [facility] Narrative Medical decision making narrative: patient presents with right sciatica pain. received pain injection at [facility] 2 weeks ago and states pain started afterwards. Past history of sciatica but he feels this time is worse. No fever. No loss of control or bowel or bladder. Able to walk in the department but states it hurts to put pressure on the right leg. Exam with focal tenderness right SI joint. CT without acute findings. 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 labs with normal inflammatory markers. Patient medicated in the department and discharged home with a prescription for percocet Lab Data Labs: Lab Results 12/27/24 Range/Units 21:40 WBC 10.6 (4.0-11.0) 10^3/uL RBC 5.35 (4.70-6.10) 10^6/uL Hgb 15.1 (14.0-18.0) g/dL Hct 45.9 (42.0-54.0) % MCV 85.8 (80.0-94.0) fL MCH 28.2 (25.9-34.0) pg MCHC 32.9 (29.9-35.2) g/dL RDW 16.1 H (11.0-15.0) % Plt Count 137 L (150-450) 10^3/uL MPV 12.9 (9.5-13.5) fL Neut % (Auto) 72.3 (43.0-75.0) % Lymph % (Auto) 19.7 L (20.5-60.0) % Cecil % (Auto) 6.8 (1.7-12.0) % Eos % (Auto) 0.2 L (0.9-7.0) % Baso % (Auto) 0.5 (0.2-2.0) % Neut # (Auto) 7.7 H (1.4-6.5) 10^3/uL Lymph # (Auto) 2.1 (1.2-3.8) 10^3/uL Cecil # (Auto) 0.7 (0.3-0.8) 10^3/uL Eos # (Auto) 0.0 (0.0-0.7) 10^3/uL Baso # (Auto) 0.1 (0.0-0.1) 10^3/uL Abs Immat Gran (auto) 0.05 H (0.00-0.03) 10^3/uL Imm/Tot Granulo (auto) 0.5 (0.0-0.5) % ESR 10 (<=20) mm/hr Sodium 139 (136-145) mmol/L Potassium 4.2 (3.5-5.1) mmol/L Chloride 103 (98-107) mmol/L Carbon Dioxide 28.4 (21.0-32.0) mmol/L Anion Gap 11.8 BUN 16.0 (7.0-18.0) mg/dL Creatinine 1.09 (0.70-1.30) mg/dL Est GFR ( Amer) >60 (>=60 mL/min/1.73m^2) Est GFR (Non-Af Amer) >60 (>=60 mL/min/1.73m^2) BUN/Creatinine Ratio 14.7 Glucose 107 H (74-106) mg/dL Calcium 9.6 (8.5-10.1) mg/dL C-Reactive Protein <0.50 (<=0.50) mg/dL Discharge Plan Discharge Chief Complaint: Extremity Problem, Nontraumatic Clinical Impression: Acute right-sided back pain with sciatica Patient Disposition: Home, Self-Care Mode of Transportation: Private Vehicle Prescriptions / Home Meds: No Action gabapentin 300 mg capsule 400 mg PO TID albuterol sulfate [Ventolin HFA] 90 mcg/actuation HFA aerosol inhaler 2 inh inhalation Q6H PRN (Reason: shortness of breath or wheezing) carvedilol 3.125 mg tablet 6.25 mg PO Q12H citalopram 20 mg tablet 40 mg PO DAILY colestipol 1 gram tablet 1 g PO DAILY cyclobenzaprine 10 mg tablet 10 mg PO Q12H PRN (Reason: spasms) fenofibrate 160 mg tablet 160 mg PO DAILY Fiasp FlexTouch U-100 Insulin 100 unit/mL (3 mL) insulin pen 1 sliding scale dose subcut USEASDIRECTD hydrochlorothiazide 25 mg tablet 25 mg PO DAILY hyoscyamine sulfate 0.125 mg tablet 0.125 mg PO Q6H Jentadueto 2.5-1,000 mg tablet 1 tab PO BID losartan 50 mg tablet 50 mg PO DAILY magnesium oxide 400 mg (241.3 mg magnesium) tablet 400 mg PO DAILY omeprazole 40 mg capsule,delayed release(DR/EC) 40 mg PO DAILY ondansetron 4 mg tablet,disintegrating 4 mg translingual Q8H PRN (Reason: nausea and vomiting) Ozempic 0.25 mg or 0.5 mg (2 mg/3 mL) pen injector 0.5 mg SUBCUT QWEEK sucralfate 1 gram tablet 1 g PO Q6H tamsulosin 0.4 mg capsule 0.4 mg PO Q24H trazodone 50 mg tablet 50 mg PO DAILY insulin degludec [Tresiba FlexTouch U-100] 100 unit/mL (3 mL) insulin pen 20 unit subcut DAILY Viberzi 100 mg tablet 100 mg PO BID Rx Instructions: must administer with a meal/food Xifaxan 550 mg tablet 550 mg PO BID Print Language: Amharic Instructions: Sciatica (ED) Additional Instructions: follow up with your doctor next week for recheck Referrals: Physician,Non-Staff, [Physician] - 1 week Discharge Date/Time: 12/28/24 00:10
[2024-12-27] MEDS: METHYLPREDNISOLONE SOD SUCC PF 125 MG/2 ML VIAL IVP (21:49)
[2024-12-27] MEDS: MAGNESIUM SULFATE IN WATER 2 GM/50 ML PREMIX IV (21:49)
[2024-12-27 21:55] LABS: Basophils Absolute Auto 0.1 10^3/uL (0.0-0.1); Basophils Percent Auto 0.5 % (0.2-2.0); Eosinophils Percent Auto 0.2 % (0.9-7.0); Hematocrit 45.9 % (42.0-54.0); Hemoglobin 15.1 g/dL (14.0-18.0); Immature Granulocytes Abs Auto 0.05 10^3/uL (0.00-0.03); Immature Granulocytes Pct Auto 0.5 % (0.0-0.5); Lymphocytes Absolute Auto 2.1 10^3/uL (1.2-3.8); Lymphocytes Percent Auto 19.7 % (20.5-60.0); Mean Corpuscular HGB Conc 32.9 g/dL (29.9-35.2); Mean Corpuscular Hemoglobin 28.2 pg (25.9-34.0); Mean Corpuscular Volume 85.8 fL (80.0-94.0); Mean Platelet Volume 12.9 fL (9.5-13.5); Monocytes Absolute Auto 0.7 10^3/uL (0.3-0.8); Monocytes Percent Auto 6.8 % (1.7-12.0); Neutrophils Absolute Auto 7.7 10^3/uL (1.4-6.5); Neutrophils Percent Auto 72.3 % (43.0-75.0); Platelet Count 137 10^3/uL (150-450); Red Blood Count 5.35 10^6/uL (4.70-6.10); Red Cell Distribution Width 16.1 % (11.0-15.0); White Blood Count 10.6 10^3/uL (4.0-11.0)
[2024-12-27 22:03] LABS: Anion Gap 11.8; BUN Creatinine Ratio 14.7; C Reactive Protein <0.50 mg/dL (<=0.50); Calcium 9.6 mg/dL (8.5-10.1); Carbon Dioxide 28.4 mmol/L (21.0-32.0); Chloride 103 mmol/L (98-107); Estimated GFR (African America >60 (>=60 mL/min/1.73m^2); Estimated GFR (Non-African Ame >60 (>=60 mL/min/1.73m^2); Glucose 107 mg/dL (74-106); Potassium 4.2 mmol/L (3.5-5.1); Sodium 139 mmol/L (136-145)
[2024-12-27 22:09] LABS: Erythrocyte Sedimentation Rate 10 mm/hr (<=20)
[2024-12-27] MEDS: FENTANYL CITRATE/PF 100 MCG/2 ML VIAL IV (23:53)
[2024-12-28 00:04] VITALS: BP 151/87; PULSE 85; O2SAT 95
== END 2024-12-28 00:10 | disposition home or self-care (01) ==
PROVIDERS: Emergency Provider Internal Medicine; PCP Internal Medicine
DX: M54.41 Lumbago with sciatica, right side (principal); E11.40 Type 2 diabetes mellitus with diabetic neuropathy, unspecified; Z79.4 Long term (current) use of insulin; Z79.84 Long term (current) use of oral hypoglycemic drugs; Z79.85 Long-term (current) use of injectable non-insulin antidiabetic drugs
CPT/HCPCS: 36415; 72131; 80048; 85025; 85652; 86140; 96365; 96375; 99284; J2919; J3010; J3475

== ENCOUNTER 2025-03-08 13:13 | Emergency (ER) | payer MEDICARE, MEDICAID, SELFPAY ==
[2025-03-08 13:17] VITALS: BP 161/100; PULSE 96; O2SAT 99; BMI 30.5
[2025-03-08 13:22] VITALS: TEMP 36.6
--- OUTSIDE RECORDS SUMMARY | 2025-03-08 13:23 | XMS_ITS | CCD ---
Author Organization [facility] Care Team Providers Care Maintenance Worker House Trailer Name Role Phone DES FLORES Unavailable Unavailab le DES FLORES Unavailable Unavailab [facility], HEALTH SERVICES Admitting Unavailable [facility] Attending Unavailable ANSELMO GARCÍA Consulting Unavailable [facility] Consulting Unavailable Jd Du Primary Care Provider [phone] Jeff Mandel Attending Provider [phone] Jeff Mandel Unavailable Bird Slade Unavailable Asa Moeller Unavailable LUIS Du Primary Care Provider MD Asa Moeller Attending Provider [phone] Yung Figueroa Unavailable Sugar Knight Unavailable Guillermo Thornton Unavailable LUIS Du Primary Care Provider MD Asa Moeller Attending Provider Angelo Grande Unavailable LUIS Du Primary Care Provider MD Guillermo Thornton Attending Provider [phone] MD Jayleen Guaman Attending Provider LUIS Du Primary Care Provider MD Guillermo Thornton Attending Provider LUIS Du Primary Care Provider MD Guillermo Thornton Attending Provider JOHN Morel Jun Emergency Provider [phone] LUIS Du Attending Provider LUIS Du Primary [...] AYANNA, JD A Primary Care Unavailable MARC KEYS Attending Unavailable [facility] Consulting Laura [...] Primary Care Unavailable ANG FIGUEROA Referring Unavailable EUGENIO, [place] Primary Care Unavailable ANG FIGUEROA Attending Unavailable AYANNA, JD A Referring Unavailable EUGENIO, [place] Primary Care Unavailable REHANA RETANA Referring Unavailable EUGENIO, [place] Primary Care Unavailable ANG FIGUEROA Attending Unavailable EUGENIO, DIANE Referring Unavailable EUGENIO, DIANE Primary Care Unavailable TOM MARQUEZ Referring Unavailable EUGENIO, DIANE Primary Care Unavailable TANK, ANG Referring Unavailable EUGENIO, DIANE Primary Care Unavailable TANK, AGN Attending Unavailable EUGENIO, DIANE Referring Unavailable EUGENIO, DIANE Primary Care Unavailable TANK, ANG Referring Unavailable MAURO, FRANCISCA Primary Care Unavailable TANK, ANG Attending Unavailable EUGENIO, DIANE Referring Unavailable MAURO, FRANCISCA Primary Care Unavailable Eugenio HORTICULTURAL FARM MANAGER, [place] Unavailable Novalocatpedro WILSON, [place] Provider [facility] Marcell Badillo MD Unavailable DIONTE FREEMAN Attending Unavailable DIONTE FREEMAN Referring Unavailable CHEY ROMANO Attending Unavailable DIONTE FREEMAN Referring Unavailable DIONTE FREEMAN Attending Unavailable ERICK NAYLOR Attending Unavailable MARCELL BADILLO Referring Unavailable Mauro [facility] Primary Care Provider Marcell Carl Attending [facility] Provider Jd Du PA-C Primary Care Provider Eugenio SENIOR MANAGING DIRECTOR-CLINICAL DOCUMENTATION IMPROVEMENT SPECIALIST, [place] Primary Care Provider Eugenio SENIOR MANAGING DIRECTOR-CLINICAL DOCUMENTATION IMPROVEMENT SPECIALIST, [place] Primary Care Provider [phone] Jun Arriola DO Unavailable Sulma AGUERO, Lorie Unavailable [phone] Gianna Hodge APRN.CNP Unavailable dJ Du PA-C Primary Care Provider Roman WILSON, Winston Glass Attending Unavailable Roman WILSON, Winston Glass Attending Unavailable Mauro [facility], [facility] Primary Care Provider [phone] VIVEK GILLIS I Attending Unavailable MAURO, FRANCISCA Referring Unavailable MAURO, FRANCISCA Primary Care Unavailable MAURO, FRANCISCA Referring Unavailable MAURO, FRANCISCA Primary Care Unavailable MARCELL BADILLO Attending Unavailable EUGENIO, DIANE Referring Unavailable MAURO, FRANCISCA Primary Care Unavailable JD DU Referring Unavailable JD DU Primary Care Unavailable Mauro W[facility], [facility] Primary Care Provider Guillermo Thornton MD Attending Provider Mauro WIL[facility], [facility] Primary Care Provider [phone] Mauro, Francisca Primary Care Unavailable Guillermo Thornton Admitting Unavailable Guillermo Thornton Attending Unavailable Marcell Badillo Attending Unavailable Mauro, Francisca Primary Care Unavailable Marcell Badillo Admitting Unavailable Mauro, Francisca Primary Care Unavailable Guillermo Thornton Admitting Unavailable Guillermo Thornton Attending Unavailable EUGENIO, DIANE Referring Unavailable JD DU Primary Care Unavailable EDDIE TORRE Attending Unavailable EUGENIO, DIANE Referring Unavailable EUGENIO, DIANE Primary Care Unavailable EUGENIO, DIANE Primary Care Unavailable BRENNEN MICHELLE Attending Unavailable BRENNEN MICHELLE Referring Unavailable EUGENIO, DIANE Primary Care Unavailable BRENNEN MICHELLE Attending Unavailable BRENNEN MICHELLE Referring Unavailable EUGENIO, [place] Primary Care Unavailable MAURO, FRANCISCA Referring Unavailable EUGENIO, DIANE Primary Care Unavailable EUGENIO, DIANE Primary Care Unavailable RACHEL CASTRO Attending Unavailable MARCELL BADILLO Referring Unavailable EUGENIO, DIANE Primary Care Unavailable MAURO, FRANCISCA Primary Care Unavailable SUNIL HART Attending Unavailabl e MAURO, FRANCISCA Primary Care Unavailable LAKSHMI DOSS Attending Unavailable MAURO, FRANCISCA Referring Unavailable MAURO, FRANCISCA Primary Care Unavailable JEFF BARRETT Attending Unavailable JEFF BARRETT Referring Unavailable MAURO, FRANCISCA Primary Care Unavailable MARC ALVES Referring Unavailable MAURO, FRANCISCA Primary Care Unavailable MARC ALVES Admitting Unavailable MARC ALVES Attending Unavailable MARC ALVES Referring Unavailable MAURO, FRANCISCA Primary Care Unavailable Jun Arriola DO Unavailable [phone] ABRAHAN RINALDI Referring Unavailable JD DU Primary Care Unavailable ZAC CROUCH Attending Unavailable ABRAHAN RINALDI Referring Unavailable JD DU Primary Care Unavailable ABRAHAN RINALDI Attending Unavailable LUCIE MARTHA Referring Unavailable JD DU Primary Care Unavailable JD DU Primary Care Unavailable ZAC CROUCH Attending Unavailable [facility]O, [facility] Primary Care Unavailable MAURO, FRANCISCA Primary Care Unavailable ALISTAIR MCNALLY Attending Unavailable MAURO, FRANCISCA Primary Care Unavailable ABRAHAN RINALDI Admitting Unavailable ABRAHAN RINALDI Attending Unavailable ABRAHAN RINALDI Referring Unavailable [facility], FRANCISCA Primary Care Unavailable ALISTAIR MCNALLY Attending Unavailable MAURO, FRANCISCA Primary Care Unavailable Unavailable Unavailable Unavailable Allergies Allergy Classification Reported Allergen(s) Allergy Type Date of Onset Reaction(s) Facility (20 sources) Insulin Glargine; Translations: [INSULIN GLARGINE] Drug Allergy 03-21-2023 GI intolerance, Nausea And Vomiting, GI Disturbance, GI Upset [facility] (13 sources) Clindamycin; Translations: [CLINDAMYCIN] Drug Allergy 11-28-2024 Other: See Comments, Other (See Comments) [facility] Medications Current Medications Medication Drug Class(es) Dates Sig (Normalized) Sig (Original) acetaminophen 500 mg oral tablet (16 sources) Start: 02-12-2024 End: 02-22-2024 take 1 tablet by mouth every four hours as needed for pain acetaminophen (TYLENOL EXTRA STRENGTH) 500 mg tablet Indications: Closed fracture of right hip, initial encounter ([facility]) Take 1 tablet (500 mg total) by [...] 2018 11:00pm atorvastatin 40 mg oral tablet (10 sources) HMG-CoA Reductase Inhibitor take 1 tablet by mouth once daily atorvastatin (LIPITOR) 40 mg tablet Take 40 mg by mouth once daily. Active calcium citrate 950 mg oral tablet (16 sources) Start: 4 End: 4 take 2 tablets by mouth three times daily calcium citrate (CALCITRATE) 200 mg (950 mg) tablet Take 2 tablets (400 mg total) by mouth 3 (three) times a day for 30 days. 180 tablet 03/14/2024 04/13/2024 Active Start: 01-29-2024 take 400 mg by mouth three times daily at mealtime 400 mg, oral, 3 times daily with meals, First dose on 01/29/24 at 1200 Start: 01-22-2024 End: 02-21-2024 calcium [...] times daily PRN, muscle spasms, Starting on Mon01/29/24 at 1151 Start: 03-21-2023 take 1 tablet [...] Mon01/17/24 at 1714 [facility] cyclobenzaprine (FLEXERIL) 10 mg tablet Take 10 mg by mouth three times a day. Active docusate sodium 50 mg / sennosides, retirement 8.6 mg oral tablet (10 sources) Start: 01-29-2024 take 2 tablets by mouth once daily 2 tablet, oral, Nightly, First dose on Mon01/29/24 at 2200 Start: 01-22-2024 take 2 tablets by mo [facility] in the morning sennosides-docusate sodium (SENOKOT-S) 8.6-50 [...] tablet 1 11/03/2021 01/17/2024 Discontinued (Therapy completed) DULoxetine 30 mg delayed release oral capsule (6 sources) Serotonin and Norepinephrine Reuptake Inhibitor Start: 02-21-2025 End: 05-22-2025 take 2 capsules by mouth once daily DULoxetine (CYMBALTA) 30 mg capsule Indications: Radiculopathy, lumbar region , Diabetic peripheral neuropathy (HCC) , Thrombocytopenia , History of total right hip replacement , H/O lumbar discectomy Take 2 capsules by mouth once daily. 60 capsule 2 02/21/2025 05/22/2025 Active Start: 01-13-2025 End: 04-13-2025 take 1 capsule by mouth once daily DULoxetine (CYMBALTA) 30 mg capsule Indications: Radiculopathy, lumbar region , Diabetic peripheral neuropathy (HCC) , Thrombocytopenia , History of total right hip replacement , H/O lumbar discectomy Take 1 capsule by mouth once daily. 30 capsule 2 01/13/2025 02/21/2025 Discontinued enteric contrast (will be provided with radiology [...] D2 Compound Start: 01-25-2024 End: 02-09-2024 take 59456 [IU] by mouth every week 50,000 Units, oral, Weekly, First dose on 01/29/24 at 1200 Start: 01-18-2024 End: 01-22-2024 take 88771 [IU] by mouth every week 50,000 Units, oral, Weekly, First dose on Whitney 01/18/24 at 1345, For 8 doses folic acid [...] 1 mg, oral, Daily, First dose on 01/29/24 at 1345, Look-alike/sound-alike medication - verify indication for use. glucagon (rdna) 1 mg injection (2 sources) [...] mg intravenously every six hours as needed Ibuprofen (20 sources) Nonsteroidal Anti-inflammatory Drug Start: 06-05-2024 ibuprofen Active PO June 04, 2024 11:00pm Start: 06-05-2024 ibuprofen Acti ve PO June 05, 2024 12:00am Start: 02-12-2024 End: 07-18-2024 take 1 tablet by mouth three times daily ibuprofen (MOTRIN) 800 mg tablet Indications: Closed fracture of right hip, initial encounter ([facility]) Take 1 tablet (800 mg total) by [...] with food or milk. 3 ml insulin degludec 100 unt/ml pen injector (20 sources) Insulin Analog Start: 11-14-2023 End: 01-13-2025 inject 40 [IU] by subcutaneous injection once daily Tresiba FlexTouch 100 UNIT/ML injection ADMINISTER 40 UNITS UNDER THE SKIN EVERY DAY 11/14/2023 Active End: 01-15-2025 inject 20 [IU] by subcutaneous injection in the morning TRESIBA FLEXTOUCH U-100 100 unit/mL (3 mL) insulin pen Inject 20 Units under the skin in the morning. 01/15/2025 Discontinued Tresiba FlexTouc h 100 UNIT/ML as directed [...] Peptidase 4 Inhibitor Start: 12-01-2023 linaGLIPtin-metFORMI N (Jentadueto) 2.5-1000 MG tablet 1 tablet 12/01/2023 Active Start: 02-22-2018 End: 02-28-2024 take 1 tablet by mouth twice daily Linagliptin-Metformin 2.5-1,000 mg table t Active 1 TAB PO Twice daily December 01, 2023 12:00am FreeTextSig: TAKE 1 TABLET BY MOUTH TWICE DAILY Oral; Note: Source Status: Taking; Refills: 0; Provider: Yany Pang multivitamin tablet (3 sources) End: 11-25-2024 take [...] Take 40 mg by mouth. 12/01/2023 Active Ozempic, 0.25 or 0.5 MG/DOSE, 2 MG/3ML [...] mg/0.5 mL (0.5 mg/mL) subcutaneous compounded injection (10 sources) semaglutide 0.25 mg/0.5 mL (0.5 mg/mL) [...] 6 (six) hours as needed for wheezing. Suspended take 2 puff(s) by in halation every [...] hours, First dose (after last modification) on Whitney 01/18/24 at 2000, For 2 doses, Pharmacy [...] Discontinued Start: 01-29-2024 take 2000 [IU] by mo ut once daily 2,000 Units, oral, Daily, First [...] (20 sources) take 1 capsule by mo ut once daily Cholecalciferol 1000 UNIT 1 capsule [...] day Start: 11-02-2023 take 2 tablets by mo [facility] once daily Colestipol Active 2 GM PO Daily 60 November 02, 2023 2:12pm take 2 tablets orally once a day Start: 11-02-2023 take 1 tablet by afua th in the morning colestipoL (COLESTID) 1 g tablet Take 1 tablet (1 g total) by mouth in the morning. 11/02/2023 Suspended Start: 10-05-2023 End: 11-02-2023 take 2 tablets [...] days Sep, Active [facility] colestipol (COLESTID) 1 gram tablet Take 1 g by mouth two times a day. Active DEXCOM G7 SENSOR device (20 sources) Start: 02-11-2024 DEXCOM G7 SENS OR device 02/11/2024 Suspended Start: 02-11-2024 DEXCOM G7 SENS OR device 02/11/2024 Active Start: 02-11-2024 DEXCOM G7 SENS OR device USE DIRECTED AND CHANGE EVERY 10 DAYS 02/11/2024 Active diazePAM 5 mg/ml injectable solution (1 [...] End: 02-01-2024 40 mg, intravenous, Once, On Whitney 02/01/24 at 1030, For 1 dose, Look-alike/sound-alike medication - verify indication for use. IVP rate = 20 mg/min gabapentin 300 mg oral capsule (20 sources) Anti-epileptic Agent Start: 06-21-2024 take 1 capsule by mouth in the morning, then take 1 capsule by mouth at bedtime gabapentin (NEURONTIN) 300 mg capsule Take 1 capsule (300 mg total) by mouth in the morning and 1 capsule (300 mg total) before bedtime. 06/21/2024 Suspended Start: 01-17-2024 End: 01-22-2024 take 800 mg [...] mouth three times a day. 11/28/2024 Discontinued hydroCHLOROthiazide 25 mg oral tablet (20 sources) Thiazide Diuretic Start: 03-21-2023 End: 05-02-2024 hydroCHLOROthiazide (HYDRODIURIL) 25 mg tablet 03/10/2024 Suspended Start: 08-03-2022 End: 03-21-2023 take 1 tablet by mouth once daily Hydrochlorothiazide 12.5 mg tablet Discontinued 12.5 MG PO Daily August 03, 2022 1:00am March 21, 2023 12:15pm Start: 11-20-2018 End: 05-02-2019 take 1 tablet by mouth once daily Hydrochlorothiazide 25 mg tablet Discontinued 25 MG PO Daily November 20, 2018 12:00am May 02, 2019 3:16pm 1 ml HYDROmorphone hydrochloride 1 mg/ml injection [...] 1 025, For 1 dose, Iván Reid: cabinet override Look-alike/sound-alike medication - verify indication for [...] 20, 2018 12:00am May 02, 2019 3:18pm 3 ml insulin aspart, human 100 unt/ml pen injector (20 sources) Insulin Analog Start: 01-23-2024 inject 15 [IU] by subcutaneous injection once daily at dinner FIASP FLEXTOUCH U-100 INSULIN 100 unit/mL (3 mL) insulin pen Inject 15 Units under the skin Daily before evening meal. 01/23/2024 Suspended Start: 01-23-2024 inject 18 [IU] by [place] bcutaneous injection at mealtime FIASP FLEXTOUCH U-100 INSULIN 100 unit/mL (3 mL) insulin pen INJECT 18 UNITS UNDER THE SKIN WITH MEALS 01/23/2024 Active Start: 12-11-2023 Fiasp FlexTouc h 100 UNIT/ML injection 12/11/2023 Active NovoLOG FlexPen 100 UNIT/ML as directed Subcutaneous Active Insulin Degludec (Tresiba Flextouch U-100) 100 unit/mL [...] Closed fracture of right hip, initial encounter ([facility]) Place 1 patch on the skin in the morning. Remove & Discard patch within 12 hours or as directed by . 30 patch 02/09/2024 07/18/2024 Discontinued Start: 01-17-2024 [...] needed for as needed for diarrhea 90 30 September 26, 2023 1:00am February 28, 2024 1:08pm Start: 11-20-2018 End: 11-25-2024 Loperamide 2 mg capsule Disc ontinued 2 MG PO As Directed as needed for Diarrhea November 20, 2018 12:00am May 02, 2019 3:19pm LORazepam 0.5 mg oral tablet (12 sources) Benzodiazepine Start: 07-18-2024 End: 01-15-2025 LORazepam (ATIVAN) 0.5 mg tablet Indications: Lumbar radiculopathy, chronic , Anxiety Take 1 tablet by mouth 90 min prior to MRI and may take 1 tablet 30 min prior if needed for anxiety 2 tablet 07/18/2024 01/15/2025 Discontinued losartan potassium 50 mg oral tablet (20 sources) Angiotensin 2 Receptor Trung Start: 01-30-2024 take 1 tablet by mouth once daily losartan (COZAAR) 50 mg tablet Take 1 tablet (50 mg total) by mouth nightly. 30 tablet 02/09/2024 Suspended Start: 01-19-2024 End: 01-22-2024 take 100 mg [...] Start: 03-21-2023 take 1 tablet by mouth in the morning magnesium oxide (MAGOX) 400 mg tablet Take 1 tablet (400 mg total) by mouth in the morning. 10/24/2023 Suspended take 1 capsule by mouth once alejandra ly magnesium oxide 400 mg magnesium cap Take 400 mg by mouth once daily. Active 50 ml magnesium sulfate 40 mg/ml injection [...] mouth nightly. 30 tablet 02/09/2024 07/18/2024 Discontinued methylPREDNISolone (2 sources) Corticosteroid Start: 11-12-2024 End: 01-15-2025 methylPREDNISolone (MEDROL, NAJMA,) 4 mg tablet follow package directions 21 tablet 11/12/2024 01/15/2025 Discontinued Start: 11-12-2024 methylPREDNISo lone (MEDROL, NAJMA,) 4 mg tablet follow package directions 21 tablet 11/12/2024 Active metoprolol tartrate 50 mg oral tablet (20 [...] cartridge (1 source) Benzodiazepine Start: 01-18-2024 End: 01-18-2024 2 mg, intravenous, As needed, anxiety, Starting on Whitney 01/18/24 at 1002, Pre-op, Indication: Other, Indication: anxiety [...] days December, Active Start: 05-02-2019 End: 11-26-2024 ondansetron ODT (ZOFRAN ODT) 4 mg disintegrating tablet Dissolve 1 tablet (4 mg total) on tongue as needed. 02/14/2024 Suspended Start: 11-12-2018 End: 05-02-2019 Ondansetron 4 mg Tablet,Disintegrating Discontinued 4 MG PO every 6 to 8 hours as needed for Nausea November 12, 2018 12:00am May 02, 2019 3:22pm 12 hr orphenadrine citrate 100 mg extended release oral tablet (2 sources) Muscle Relaxant Start: 11-12-2024 End: 01-15-2025 take 1 tablet by mouth twice daily as needed for pain orphenadrine (NORFLEX) 100 mg 12 hr tablet Take 1 tablet (100 mg total) by mouth 2 (two) times a day as needed for muscle spasms or pain. 14 tablet 11/12/2024 01/15/2025 Discontinued oxyCODONE hydrochloride 5 mg oral tablet (20 sources) Opioid Agonist Start: 03-18-2024 End: 07-18-2024 take 1 tablet by mouth once oxyCODONE (ROXICODONE) 5 mg immediate release tablet Indications: Closed fracture of right hip, [place] Take 1 tablet (5 mg total) by [...] Closed fracture of right hip, initial encounter ([facility] Take 1 tablet (5 mg total) by mouth every 8 (eight) hours as needed for pain. Take 1 tablet (5mg) oxycodone every 5-6 hours PRN pain Max Daily Amount: 15 mg 21 tablet 03/11/2024 03/18/2024 Discontinued (Reorder) Start: 02-25-2024 End: 02-26-2024 oxyCODONE (ROXICODONE) 5 mg immediate release tablet Indications: Closed fracture of right hip, initial encounter ([facility] Take 1 tablet (5mg) oxycodone every 5-6 hours PRN pain 7 tablet 02/26/2024 Active Start: 02-25-2024 oxyCODONE (ROSALINDA ICODONE) 5 mg immediate release tablet Indications: Closed fracture of right hip, initial encounter ([facility] Take 1 tablet (5mg) oxycodone every 5-6 hours PRN pain 32 tablet 02/25/2024 Active Start: 02-09-2024 End: 02-26-2024 take 1 tablet by mouth every six hours as needed for pain oxyCODONE (ROXICODONE) 5 mg immediate release tablet Indications: Closed fracture of right hip, initial encounter ([facility]) Take 1 tablet (5 mg total) by [...] 22, 2018 12:00am June 14, 2019 3:12pm OZEMPIC 0.25 mg or 0.5 mg (2 [...] under the skin once a week. Monday03/21/2023 pantoprazole 40 mg delayed release oral tablet [...] Peptic Ulcer Disease (PUD) polyethylene glycol 3350 62093 mg powder for oral solution (3 sources) [...] 40 mg, intra-articular, One-Time Injection, Starting on Whitney 07/25/24 [...] as recurrent] Onset: 2 Resolved: 2 Episodic Anxiety disorders (2 sources) Anxiety; Translations: [Anxiety [...] Onset: 0 Episodic Coagulation and hemorrhagic disorders (18 sources) Thrombocytopenic disorder; Translations: [Thrombocytopenia, unspecified] Onset: 5 11-25-2024 Chronic Diabetes mellitus with complications (20 sources) Polyneuropathy due to diabetes mellitus; Translations: [Type 2 diabetes mellitus with diabetic polyneuropathy] Onset: 4 02-03-2024 Chronic Diabetes mellitus without complication (13 sources) Diabetes mellitus; Translations: [Type 2 diabetes mellitus without complications] 04-06-2018 Chronic Disorders of lipid metabolism (20 sources) Mixed hyperlipidemia; Translations: [Mixed hyperlipidemia] Onset: 4 02-03-2024 Chronic E Codes: Fall (1 source) Fall Onset: 4 Esophageal disorders (20 sources) Gastroesophageal reflux disease; Translations: [Gastro-esophageal reflux disease without esophagitis] Onset: 4 Chronic Essential hypertension (20 sources) Essential (primary) hypertension; Translations: [Essential hypertension] Onset: 4 02-03-2024 Chronic Genitourinary symptoms and ill-defined conditions (7 sources) Difficulty passing urine; Translations: [Other difficulties [...] Onset: 4 Chronic Other connective tissue disease (13 sources) History of total replacement of right hip joint; Translations: [Presence of right artificial hip joint] Onset: 5 11-25-2024 Chronic Other connective tissue disease (1 source) Presence of right artificial hip joint; Translations: [History of total right hip replacement] Onset: 5 Chronic Other connective tissue disease (4 sources) [...] neuropathy 07-18-2024 Chronic Other nervous system disorders (1 source) Chronic pain syndrome; Translations: [Chronic pain syndrome] 01-13-2025 Chronic Other nervous system disorders (1 source) Polyneuropathy; Translations: [Polyneuropathy, unspecified] 02-21-2025 Chronic Other nervous system disorders (20 sources) [...] Translations: [Hypomagnesemia] Onset: 4 02-03-2024 Chronic Other screening for suspected conditions (not mental disorders or infectious disease) (3 sources) Encounter for screening for malignant neoplasm of colon; Translations: [High carcinoembryonic antigen level] Onset: 5 02-20-2025 Episodic Residual codes; unclassified (16 sources) Family history of polyp of colon; Translations: [Family history of colonic polyps] 02-22-2018 Episodic Comment on above: Problem List clean-u p per request of Phys. EHR Cmte Residual codes; unclassified (4 sources) History of operative procedure on lumbar spinal structure; Translations: [Other specified postprocedural states] 09-04-2024 Episodic Residual codes; unclassified (3 sources) Other specified postprocedural states; Translations: [Other specified postprocedural states] Onset: 4 Episodic Residual codes; unclassified (2 sources) History of lumbar discectomy; Translations: [Other specified postprocedural states] 01-13-2025 Episodic Spondylosis; intervertebral disc disorders; other back [...] M (1970) Onset: 4 Unclassified (1 source) Difficulty Urinating Onset: 5 Unclassified (1 source) Low back pain, unspecified; Translations: [Low back pain, unspecified] Onset: 4 Unclassified (1 source) Consult Onset: 4 Unclassified (1 source) Hip Pain, Leg Pain Onset: 4 Past or Other Problems Problem Classification Problem Date Documented Date Episodic/Chronic Abdominal pain (20 sources) Abdominal pain; Translations: [Unspecified abdominal pain] Onset: 08-25-2021 Resolved: 08-25-2021 Episodic Comment on above: Problem List clean-u p per request of Phys. EHR Cmte Complications of surgical procedures or medical care [...] Onset: 01-22-2024 Resolved: 02-03-2024 02-03-2024 Other aftercare (2 sources) care home (current) use of insulin; Translations: [care home (current) use of insulin] Onset: 02-03-2024 Episodic [...] in left hand] Onset: 07-18-2024 Episodic Other connective tissue disease (1 source) Pain in lower limb Onset: 05-07-2024 Episodic Other injuries and conditions due to external causes (1 source) Personal history of (healed) traumatic fracture; Translations: [Personal history of (healed) traumatic fracture] Onset: 02-03-2024 Episodic Other injuries and conditions due to external causes (20 sources) H/O: hip fracture; Translations: [Personal history of (healed) traumatic fracture] Onset: 02-03-2024 02-03-2024 Episodic Other nervous system disorders (1 source) [...] Onset: 04-23-2018 04-26-2018 Episodic Residual codes; unclassified (12 sources) History of lumbar laminectomy; Translations: [Other specified postprocedural states] Onset: 04-23-2018 11-25-2024 Episodic Residual codes; unclassified (1 source) Pain, unspecified; Translations: [Pain, unspecified] Onset: 09-04-2024 Episodic Residual codes; unclassified (1 source) Localized edema; Translations: [Localized edema] Onset: 06-07-2024 Episodic Skin and subcutaneous tissue infections (20 sources) Infected face; Translations: [Local infection of the skin and subcutaneous tissue, unspecified] Onset: 04-04-2021 04-04-2021 Episodic Unclassified (13 sources) Onset: 07-18-2024 07-18-2024 Unclassified (1 source) History of total replacement of right hip joint 01-13-2025 Unclassified (1 source) History of lumbar discectomy 01-13-2025 Unclassified (1 source) Preprocedural examination done 01-16-2025 Results Test Name Value Interpretation Reference Range Facility [facility] 02-21-2025 CNOV Office Visit ([facility]) -------- RUTH SMITH ([id number]) 1970 M Date Time Provider Department 02/21/25 2:15 PM ALISTAIR MCNALLY [facility] During your visit today, we recorded the following information about you: Pulse Respiration Blood pressure 98/minute 16/minute 146/91 Alistair Mcnally MD 02/21/2025 3:14 PM Addendum We discussed your ongoing lower back pain and associated symptoms: - Your pain starts in the lower back and radiates to the buttock, hip, knee, calf, and occasionally the outside of your ankle. You also experience numbness in your legs and feet due to neuropathy. - I recommend you complete the EMG (electromyography) test to evaluate whether nerve damage is contributing to your symptoms. I will send the order to [facility], as requested. - I increased your duloxetine dosage to 60 mg daily to help manage your pain. Please take this as prescribed. If it does not help, we will discontinue it. - We discussed avoiding opioids for pain management due to their long-term risks, including tolerance and worsening pain. Duloxetine is the preferred option at this time. - You have already scheduled the Back on Track and Empowered Relief courses. Please attend these as planned, as they may provide additional support for managing your pain. We discussed next steps for your care: - Once the EMG results are available, we may consider additional treatment options, such as a spinal cord stimulator, to help with your neuropathy and pain. - I recommend a follow-up appointment in 4 weeks to assess your progress. This can be done virtually if you prefer. We discussed your emotional well-being: - I understand the frustration and stress you are experiencing. I encourage you to meet with Beatrice Ramirez, who can help you manage the emotional challenges that come with chronic pain. Reducing stress may also help improve your pain levels. Please continue to monitor your symptoms and let me know if there are any changes or concerns. Alistair Mcnally MD 02/21/2025 4:10 PM Signed [facility] Pain Management Department Follow-Up Evaluation Chief Complaint: Patient presents with: Pain: Low back SUBJECTIVE Ruth Smith, is a 54 year old with PAST MEDICAL HISTORY Diagnosis Date Bipolar 1 disorder (HCC) Cirrhosis (HCC) Colon cancer (HCC) Diabetes (HCC) Hypertension Splenomegaly Chief Complaint: Patient presents with: Pain: Low back . Intensity of pain: 8 on a scale of 0-10 NRS. Duration of pain: 1 Years ago. The pain is located Back-Lower. Pain Description and Timing: Continuous Aching, Burning, Cutting, Dull, Numbness, Pulsating, Radiating, Sharp, Shooting, Sore, Stabbing, Stiffness, Tenderness, Tingling Alleviating Factors: Relaxation, Aromatherapy to promote a healing environment, Cold, Distractions, Heat, Imagery, Music, Pillow support, Positioning Patient entered comments: Ruth Smith reports that his pain is worse. His function is worse. Pain score today: 8/10 ========= Carlo Smith is a 54-year-old male with a history of chronic lower back pain and neuropathy, presenting for worsening pain and neuropathy. Carlo reports persistent lower back pain radiating to the buttocks, right leg, calf, and occasionally the ankle. The pain has intensified, now described as an electric sensation shooting up the core with each step. He also experiences pain in the hip, knee, and calf, with severe episodes extending to the ankle. Carlo has a history of neuropathy in the lower extremities for over 7-8 years, initially starting in the outer toes and progressively affecting all toes and feet. He reports numbness in the legs when sitting, particularly on the commode, requiring 10-15 minutes to regain sensation. Carlo underwent two surgeries last year, including a discectomy, and is uncertain if the current pain is related to these procedures. He received an epidural during the last visit, which provided temporary relief for one day. He was scheduled for an EMG but postponed it due to recent colonoscopy and cystoscopy procedures. He expresses a preference for having the EMG performed at a facility closer to his residence in [place]. Carlo is currently on duloxetine 30 mg daily and has been compliant with the medication. He has also scheduled therapy sessions as previously recommended. He reports significant sleep disturbances, averaging less than 3 hours of sleep per night, and expresses frustration and emotional distress, stating he has been crying for 6 months. He denies current constipation, noting he takes medication to manage this due to a previous colonic resection. ========= Past Pain Management Procedures, % relief, and duration: L5 TFESI by Braydon Past and current medications: Duloxetine Cyclobenzaprine Gabapentin Tra (more content not included)... Normal [facility] CBC W Auto Differential pane l (Kentrel[place])on 02-20-2025 Basophils (Bld) [#/Vol] 0.06 10*3/uL [facility] Basophils/100 WBC (Bld) 0.6 % [facility] Differential cell count method Nom (Bld) Auto [facility] Eosinophils (Bld) [#/Vol] 0.03 10*3/uL [facility] Eosinophils/100 WBC (Bld) 0.3 % [facility] Erythrocyte distribution width (RBC) [Ratio] 14.7 % 11.5 - 15.0 % [facility] Hematocrit (Bld) [Volume fraction] 48 % 39.0 - 51.0 % [facility] Hemoglobin (Bld) [Mass/Vol] 15.7 g/dL 13.0 - 17.0 g/dL [facility] Immature granulocytes (Bld) [#/Vol] 0.03 10*3/uL [facility] Immature granulocytes/100 WBC (Bld) 0.3 % [facility] Lymphocytes (Bld) [#/Vol] 2.45 10*3/uL [facility] Lymphocytes/100 WBC (Bld) 25.6 % [facility] MCH (RBC) [Entitic mass] 28 pg 26.0 - 34.0 pg [facility] MCHC (RBC) [Mass/Vol] 32.7 g/dL 30.5 - 36.0 g/dL [facility] MCV (RBC) [Entitic vol] 85.7 fL 80.0 - 100.0 fL [facility] Monocytes (Bld) [#/Vol] 0.72 10*3/uL [facility] Monocytes/100 WBC (Bld) 7.5 % [facility] Neutrophils (Bld) [#/Vol] 6.29 10*3/uL [facility] Neutrophils/100 WBC (Bld) 65.7 % [facility] Nucleated RBC (Bld) [#/Vol] [facility] Nucleated RBC/100 WBC (Bld) [Ratio] 0 % /100 WBC [facility] Platelet mean volume (Bld) [Entitic vol] 12.3 fL 9.0 - 12.7 fL [facility] Platelets (Bld) [#/Vol] 164 10*3/uL [facility] RBC (Bld) [#/Vol] 5.6 10*6/uL 4.20 - 6.00 m/uL [facility] WBC (Bld) [#/Vol] 9.58 10*3/uL [facility] Basophils (Bld) [#/Vol] 0.06 10*3/uL Normal <0.11 [facility] Comment on above: Order Comment: Speci men Type: BLOOD SPECIMENOrdering Facility: [facility] Address: [address] [place] [address] Performed By: #### 5 7021-8 ####[facility] LABCLIA [id number] [place] [address] Basophils/100 WBC (Bld) 0.6 % Normal [facility] Comment on above: Order Comment: Speci men Type: BLOOD SPECIMENOrdering Facility: [facility] Address: [address] [place] [address] Performed By: #### 5 7021-8 ####[facility] LABCLIA [id number] [place] [address] Differential cell count method Nom (Bld) Auto Normal [facility] Comment on above: Order Comment: Speci men Type: BLOOD SPECIMENOrdering Facility: [facility] Address: [address] [place] [address] Performed By: #### 5 7021-8 ####[facility] LABCLIA [id number] [place] [address] Eosinophils (Bld) [#/Vol] 0.03 10*3/uL Normal <0.46 [facility] Comment on above: Order Comment: Speci men Type: BLOOD SPECIMENOrdering Facility: [facility] Address: [address] [place] [address] Performed By: #### 5 7021-8 ####[facility] LABCLIA [id number] [place] [address] Eosinophils/100 WBC (Bld) 0.3 % Normal [facility] Comment on above: Order Comment: Speci men Type: BLOOD SPECIMENOrdering Facility: [facility] Address: [address] [place] [address] Performed By: #### 5 7021-8 ####[facility] LABCLIA [id number] [place] [address] Erythrocyte distribution width (RBC) [Ratio] 14.7 % Normal 11.5-15.0 [facility] Comment on above: Order Comment: Speci men Type: BLOOD SPECIMENOrdering Facility: [facility] Address: [address] [place] [address] Performed By: #### 5 7021-8 ####[facility] LABCLIA [id number] [place] [address] Hematocrit (Bld) [Volume fraction] 48.0 % Normal 39.0-51.0 [facility] Comment on above: Order Comment: Speci men Type: BLOOD SPECIMENOrdering Facility: [facility] Address: [address] [place] [address] Performed By: #### 5 7021-8 ####[facility] LABIA [id number] [place] [address] Hemoglobin (Bld) [Mass/Vol] 15.7 g/dL Normal 13.0-17.0 [facility] Comment on above: Order Comment: Speci men Type: BLOOD SPECIMENOrdering Facility: [facility] Address: [address] [place] [address] Performed By: #### 5 7021-8 ####[facility] LABCLIA [id number] [place] [address] Immature granulocytes (Bld) [#/Vol] 0.03 10*3/uL Normal <0.10 [facility] Comment on above: Order Comment: Speci men Type: BLOOD SPECIMENOrdering Facility: [facility] Address: [address] [place] [address] Performed By: #### 5 7021-8 ####[facility] LABIA [id number] [place] [address] Immature granulocytes/100 WBC (Bld) 0.3 % Normal [facility] Comment on above: Order Comment: Speci men Type: BLOOD SPECIMENOrdering Facility: [facility] Address: [address] [place] [address] Performed By: #### 5 7021-8 ####[facility] LABCLIA [id number] [place] [address] Lymphocytes (Bld) [#/Vol] 2.45 10*3/uL Normal 1.00-4.00 [facility] Comment on above: Order Comment: Speci men Type: BLOOD SPECIMENOrdering Facility: [facility] Address: [address] [place] [address] Performed By: #### 5 7021-8 ####[facility] LABCLIA [id number] [place] [address] Lymphocytes/100 WBC (Bld) 25.6 % Normal [facility] Comment on above: Order Comment: Speci men Type: BLOOD SPECIMENOrdering Facility: [facility] Address: [address] [place] [address] Performed By: #### 5 7021-8 ####[facility] LABCLIA [id number] [place] [address] MCH (RBC) [Entitic mass] 28.0 pg Normal 26.0-34.0 [facility] Comment on above: Order Comment: Speci men Type: BLOOD SPECIMENOrdering Facility: [facility] Address: [address] [place] [address] Performed By: #### 5 7021-8 ####[facility] LABCLIA [id number] [place] [address] MCHC (RBC) [Mass/Vol] 32.7 g/dL Normal 30.5-36.0 [facility] Comment on above: Order Comment: Speci men Type: BLOOD SPECIMENOrdering Facility: [facility] Address: [address] [place] [address] Performed By: #### 5 7021-8 ####[facility] LABCLIA [id number] [place] [address] MCV (RBC) [Entitic vol] 85.7 fL Normal 80.0-100.0 [facility] Comment on above: Order Comment: Speci men Type: BLOOD SPECIMENOrdering Facility: [facility] Address: [address] [place] [address] Performed By: #### 5 7021-8 ####[facility] LABCLIA [id number] [place] [address] Monocytes (Bld) [#/Vol] 0.72 10*3/uL Normal <0.87 [facility] Comment on above: Order Comment: Speci men Type: BLOOD SPECIMENOrdering Facility: [facility] Address: [address] [place] [address] Performed By: #### 5 7021-8 ####[facility] LABCLIA [id number] [place] [address] Monocytes/100 WBC (Bld) 7.5 % Normal [facility] Comment on above: Order Comment: Speci men Type: BLOOD SPECIMENOrdering Facility: [facility] Address: [address] [place] [address] Performed By: #### 5 7021-8 ####[facility] LABCLIA [id number] [place] [address] Neutrophils (Bld) [#/Vol] 6.29 10*3/uL Normal 1.45-7.50 [facility] Comment on above: Order Comment: Speci men Type: BLOOD SPECIMENOrdering Facility: [facility] Address: [address] [place] [address] Performed By: #### 5 7021-8 ####[facility] LABCLIA [id number] [place] [address] Neutrophils/100 WBC (Bld) 65.7 % Normal [facility] Comment on above: Order Comment: Speci men Type: BLOOD SPECIMENOrdering Facility: [facility] Address: [address] [place] [address] Performed By: #### 5 7021-8 ####[facility] LABCLIA [id number] [place] [address] Nucleated RBC (Bld) [#/Vol] 10*3/uL Normal <0.01 [facility] Comment on above: Order Comment: Speci men Type: BLOOD SPECIMENOrdering Facility: [facility] Address: [address] [place] [address] Performed By: #### 5 7021-8 ####[facility] LABCLIA [id number] [place] [address] Nucleated RBC/100 WBC (Bld) [Ratio] 0.0 /100 WBC Normal [facility] Comment on above: Order Comment: Speci men Type: BLOOD SPECIMENOrdering Facility: [facility] Address: [address] [place] [address] Performed By: #### 5 7021-8 ####[facility] LABIA [id number] [place] [address] Platelet mean volume (Bld) [Entitic vol] 12.3 fL Normal 9.0-12.7 [facility] Comment on above: Order Comment: Speci men Type: BLOOD SPECIMENOrdering Facility: [facility] Address: [address] [place] [address] Performed By: #### 5 7021-8 ####[facility] LABCLIA [id number] [place] [address] Platelets (Bld) [#/Vol] 164 10*3/uL Normal 150-400 [facility] Comment on above: Order Comment: Speci men Type: BLOOD SPECIMENOrdering Facility: [facility] Address: [address] [place] [address] Performed By: #### 5 7021-8 ####[facility] LABCLIA [id number] [place] [id number] RBC (Bld) [#/Vol] 5.60 10*6/uL Normal 4.20-6.00 [facility] Comment on above: Order Comment: Speci men Type: BLOOD SPECIMENOrdering Facility: [facility] Address: [address] [place] [address] Performed By: #### 5 7021-8 ####[facility] LABIA [id number] [place] [address] WBC (Bld) [#/Vol] 9.58 10*3/uL Normal 3.70-11.00 [facility] Comment on above: Order Comment: Speci men Type: BLOOD SPECIMENOrdering Facility: [facility] Address: [address] [place] [address] Performed By: #### 5 7021-8 ####[facility] LABCLIA [id number] [place] [address] [facility] Carcinoembryonic Ag [Mass/Vol] 3.4 ng/mL High <=2.9 [facility] Comment on above: Order Comment: Speci men Type: BLOOD SPECIMENOrdering Facility: [facility] Address: [address] [place] [address] Result Comment: Carc inoembryonic antigen test is used as an aid in monitoring response to treatment or recurrence in patients with established colorectal, breast, lung, prostatic, pancreatic, and ovarian carcinomas. Clinical correlation is required. The Carcinoembryonic antigen test was performed using the [employer] Cig Unicel DXI paramagnetic particle chemiluminescent immunoassay method. Results obtained with different assay methods or kits cannot be used interchangeably. Performed By: #### 2 039-6 ####[facility] LABCLIA [id number] [address] OF [facility] CNOVSPon 02-20-2025 CNOVSP Visit (SP) Office ([facility]) -------- RUTH SMITH ([id number]) 1970 M Date Time Provider Department 02/20/25 2:20 PM ZAC CROUCH During your visit today, we recorded the following information about you: Temperature Pulse Respiration Blood pressure 97.6 degrees 91/minute 16/minute 120/82 Weight Height 108.2 kg 1.854 m Zac Crouch MD 02/20/2025 4:15 PM Signed PATIENT NAME: Ruth Smith CLINIC NO.: [id number] ATTENDING PHYSICIAN: Zac Crouch MD DATE OF SERVICE: November 28, [address] Abrahan Rinaldi [address] [facility] [address] thank you for referring Ruth Smith for an opinion regarding Thrombocytoopenia. Some of the elements of this note have been copied from my previous progress note dated 11/28/24 . All the information has been reviewed carefully. CHIEF COMPLAINT: Thrombocytopenia HPI: Ruth Smith is a 54 year old year old male with PMH of liver cirrhosis from Hep C (treated), colon cancer s/p surgery in 2018, chronic back pain, HTN, IBS, DM referred to us for thrombocytopenia. Smokes half pack daily Quit alcohol many yrs ago. On disability. C/o back pain. No other complaints. 02/20/25: - Doing well - No major complaints. - Had colonoscopy 1 month ago. Normal. - Had epidural steroid injection in December 2024 Current Outpatient Medications Medication Sig DULoxetine (CYMBALTA) 30 mg capsule Take 1 capsule by mouth once daily. hyoscyamine (LEVSIN) 0.125 mg tablet Take 0.125 [...] Take 50 mg by mouth once daily. traZODone (DESYREL) 50 mg tablet Take 50 mg by mouth daily at bedtime. linagliptin-metFORMIN (JENTADUETO) 2.5-1,000 mg tab Take by mouth. hydroCHLOROthiazide (HYDRODIURIL, ESIDRIX) 25 mg tablet Take 25 mg by mouth once daily. Fenofibrate (LOFIBRA) 160 mg tablet Take 160 mg by mouth once daily. citalopram (CELEXA) 40 mg tablet Take 40 mg by mouth once daily. tamsulosin ER (FLOMAX) 0.4 mg cap Take 1 capsule by mouth once daily. No current facility-administered medications for this visit. ALLERGIES Allergen Reactions Clindamycin Other: See Comments Insulin Glargine GI Upset isabellaar PAST MEDICAL HISTORY Diagnosis Date Bipolar 1 [...] Types: Cigarettes Quit date: 2010 Years since quittin.5 Smokeless tobacco: Never Substance Use Topics Alcohol [...] of hands/feet. No weakness. PHYSICAL EXAMINATION: BP 120/82 Pulse 91 Temp 36.4 ?C (97.6 ?F) (Temporal) Resp 16 Ht 185.4 cm (6' 0.99 ) Wt 108.2 kg (238 lb 8.6 oz) SpO2 100% BMI 31.48 kg/m? There were no vitals taken for this visit. Last 3 Encounter Wt Reading (more content not included)... Normal [facility] Comprehensive metabolic 2000 panelOrdered By: Prashant Mishra on 02-20-2025 Albumin [Mass/Vol] 4.9 g/dL 3.9 - 4.9 g/dL [facility] ALP [Catalytic activity/Vol] 69 U/L 38 - 113 U/L [facility] ALT [Catalytic activity/Vol] 8 U/L Low 10 - 54 U/L [facility] Anion gap [Moles/Vol] 12 mmol/L 8 - 15 mmol/L [facility] AST [Catalytic activity/Vol] 16 U/L 14 - 40 U/L [facility] Bilirubin [Mass/Vol] 0.4 mg/dL 0.2 - 1 .3 mg/dL [facility] Calcium [Mass/Vol] 10.4 mg/dL High 8.5 - 10. 2 mg/dL [facility] Chloride [Moles/Vol] 100 mmol/L 98 - 10 7 mmol/L [facility] CO2 [Moles/Vol] 26 mmol/L 22 - 30 mmol/L [facility] Creatinine [Mass/Vol] 0.97 mg/dL 0.73 - 1.22 mg/dL [facility] GFR/1.73 sq M.predicted among non-blacks MDRD (S/P/Bld) [Vol rate/Area] 92 mL/min/{1.73_m2} - PINF [facility] Comment on above: Estimated Glomerular Filtration Rate (eGFR) is calculated using the 202 CKD-EPI creatinine equation. This equation utilizes serum creatinine, sex, and age as parameters. The creatinine assay has traceable calibration to isotope dilution-mass spectrometry. Refer to KDIGO guidelines for clinical interpretation. In patients with unstable renal function, e.g. those with acute kidney injury, the eGFR may not accurately reflect actual GFR. Glucose [Mass/Vol] 145 mg/dL High 74 - 99 mg/dL [facility] Comment on above: The [place] Diab[employer] Association (ADA) provides guidance for [...] Standards of Medical Care in Diabetes 2016, [place] [employer]. Diabetes Care. 2016.39(Suppl 1). Interpretation and review of laboratory results Abnormal [facility] Potassium [Moles/Vol] 4.1 mmol/L 3.7 - 5.1 mmol/L [facility] Protein [Mass/Vol] 8 g/dL 6.3 - 8.0 g/dL [facility] Sodium [Moles/Vol] 138 mmol/L 136 - 144 mmol/L [facility] Urea nitrogen [Mass/Vol] 14 mg/dL 9 - 24 mg/dL [facility] Comprehensive metabolic 2000 panelon 02-20-2025 Albumin [Mass/Vol] 4.9 g/dL Normal 3.9-4.9 [facility] Comment on above: Order Comment: Speci men Type: BLOOD SPECIMENOrdering Facility: [facility] Address: [address] [place] [address] Performed By: #### 2 4323-8 ####[facility] LABCLIA [id number] [place] [address] ALP [Catalytic activity/Vol] 69 U/L Normal 38-113 [facility] Comment on above: Order Comment: Speci men Type: BLOOD SPECIMENOrdering Facility: [facility] Address: [address] [place] [address] Performed By: #### 2 4323-8 ####[facility] LABCLIA [id number] [place] [address] ALT [Catalytic activity/Vol] 8 U/L Low 10-54 [facility] Comment on above: Order Comment: Speci men Type: BLOOD SPECIMENOrdering Facility: [facility] Address: [address] [place] [address] Performed By: #### 2 4323-8 ####[facility] LABCLIA [id number] [place] [address] Anion gap [Moles/Vol] 12 mmol/L Normal 8-15 [facility] Comment on above: Order Comment: Speci men Type: BLOOD SPECIMENOrdering Facility: [facility] Address: [address] [place] [address] Performed By: #### 2 4323-8 ####[facility] LABCLIA [id number] [place] [address] AST [Catalytic activity/Vol] 16 U/L Normal 14-40 [facility] Comment on above: Order Comment: Speci men Type: BLOOD SPECIMENOrdering Facility: [facility] Address: [address] [place] [address] Performed By: #### 2 4323-8 ####[facility] LABCLIA [id number] [place] [address] Bilirubin [Mass/Vol] 0.4 mg/dL Normal 0.2-1.3 [facility] Comment on above: Order Comment: Speci men Type: BLOOD SPECIMENOrdering Facility: [facility] Address: [address] [place] [address] Performed By: #### 2 4323-8 ####[facility] LABCLIA [id number] [place] [address] Calcium [Mass/Vol] 10.4 mg/dL High 8.5-10.2 [facility] Comment on above: Order Comment: Speci men Type: BLOOD SPECIMENOrdering Facility: [facility] Address: [address] [place] [address] Performed By: #### 2 4323-8 ####[facility] LABCLIA [id number] [place] [address] Chloride [Moles/Vol] 100 mmol/L Normal 98-107 [facility] Comment on above: Order Comment: Speci men Type: BLOOD SPECIMENOrdering Facility: [facility] Address: [address] [place] [address] Performed By: #### 2 4323-8 ####[facility] LABCLIA [id number] [place] [address] CO2 [Moles/Vol] 26 mmol/L Normal 22-30 [facility] Comment on above: Order Comment: Speci men Type: BLOOD SPECIMENOrdering Facility: [facility] Address: [address] [place] [address] Performed By: #### 2 4323-8 ####[facility] LABCLIA [id number] [place] [address] Creatinine [Mass/Vol] 0.97 mg/dL Normal 0.73-1.22 [facility] Comment on above: Order Comment: Speci men Type: BLOOD SPECIMENOrdering Facility: [facility] Address: [address] [place] [address] Performed By: #### 2 4323-8 ####[facility] LABCLIA [id number] [place] [address] Creatinine and Glomerular filtration rate.predicted panel (S/P/Bld) 92 mL/min/1.73m??? Normal >=60 [facility] Comment on above: Order Comment: Speci men Type: BLOOD SPECIMENOrdering Facility: [facility] Address: [address] [id number] Result Comment: Lou mated Glomerular Filtration Rate [...] reflect actual GFR. Performed By: #### 2 4323-8 ####[facility] LABCLIA [id number] [place] [address] Glucose [Mass/Vol] 145 mg/dL High 74-99 [facility] Comment on above: Order Comment: Ricky rosenthal Type: BLOOD SPECIMENOrdering Facility: [facility] Address: [address] [place] [address] Result Comment: The [place] Diabetes Association (ADA) provides guidance for cutoff [...] Standards of Medical Care in Diabetes 2016, [place] [employer] Association. Diabetes Care. 2016.39(Suppl 1). Performed By: #### 2 4323-8 ####[facility] LABCLIA [id number] [place] [address] Potassium [Moles/Vol] 4.1 mmol/L Normal 3.7-5.1 [facility] Comment on above: Order Comment: Ricky rosenthal Type: BLOOD SPECIMENOrdering Facility: [facility] Address: [address] [id number] Performed By: #### 2 4323-8 ####[facility] LABCLIA [id number] [place] [address] Protein [Mass/Vol] 8.0 g/dL Normal 6.3-8.0 [facility] Comment on above: Order Comment: Speci men Type: BLOOD SPECIMENOrdering Facility: [facility] Address: [address] [place] [address] Performed By: #### 2 4323-8 ####[facility] LABCLIA [id number] [place] [address] Sodium [Moles/Vol] 138 mmol/L Normal 136-144 [facility] Comment on above: Order Comment: Speci men Type: BLOOD SPECIMENOrdering Facility: [facility] Address: [address] [place] [address] Performed By: #### 2 4323-8 ####[facility] LABCLIA [id number] [place] [address] Urea nitrogen [Mass/Vol] 14 mg/dL Normal 9-24 [facility] Comment on above: Order Comment: Speci men Type: BLOOD SPECIMENOrdering Facility: [facility] Address: [address] [place] [address] Performed By: #### 2 4323-8 ####[facility] LABCLIA [id number] [place] [address] ECG 12 leadon 01-16-2025 TRACEMASTERVUE [facility] URINALYSISon 01-15-2025 Bilirubin Ql (U) Negative Normal Negative [facility] Comment on above: Order Comment: Clean catch, midstreamif symptomatic. Urine culture if positive for bacteria, blood, protein, white blood count over 5, nitrates or leukocyte esterase positive Performed By: #### C BCA, PINR, CMP #### [facility] ([id number]) [address] [place] [address], [place] [address] BLOOD/HGB Negative Normal Negative [facility] Comment on above: Order Comment: Clean catch, midstreamif symptomatic. Urine culture if positive for bacteria, blood, protein, white blood count over 5, nitrates or leukocyte esterase positive Performed By: #### C BCA, PINR, CMP #### [facility] ([id number]) [address] [place] [address] Color (U) Yellow Normal Yellow, Colorless [facility] Comment on above: Order Comment: Clean catch, midstreamif symptomatic. Urine culture if positive for bacteria, blood, protein, white blood count over 5, nitrates or leukocyte esterase positive Performed By: #### C BCA, PINR, CMP #### [facility] ([id number]) [address] [place] [address] Glucose Ql (U) Negative Normal Negative [facility] Comment on above: Order Comment: Clean catch, midstreamif symptomatic. Urine culture if positive for bacteria, blood, protein, white blood count over 5, nitrates or leukocyte esterase positive Performed By: #### C BCA, PINR, CMP #### [facility] ([id number]) [address] [place] [address] Ketones Ql (U) Negative Normal Negative [facility] Comment on above: Order Comment: Clean catch, midstreamif symptomatic. Urine culture if positive for bacteria, blood, protein, white blood count over 5, nitrates or leukocyte esterase positive Performed By: #### C BCA, PINR, CMP #### [facility] ([id number]) [address] [place] [address] Leukocyte esterase Test strip Ql (U) Negative Normal Negative [facility] Comment on above: Order Comment: Clean catch, midstreamif symptomatic. Urine culture if positive for bacteria, blood, protein, white blood count over 5, nitrates or leukocyte esterase positive Performed By: #### C BCA, PINR, CMP #### [facility] ([id number]) [address] [place] [address] Nitrite Ql (U) Negative Normal Negative [facility] Comment on above: Order Comment: Clean catch, midstreamif symptomatic. Urine culture if positive for bacteria, blood, protein, white blood count over 5, nitrates or leukocyte esterase positive Performed By: #### C BCA, PINR, CMP #### [facility] ([id number]) [address] [place] [address] PH,URINE 7.0 Normal 5.0-8.5 [facility] Comment on above: Order Comment: Clean catch, midstreamif symptomatic. Urine culture if positive for bacteria, blood, protein, white blood count over 5, nitrates or leukocyte esterase positive Performed By: #### C BCA, PINR, CMP #### [facility] ([id number]) [address] [place] [address] Protein Ql (U) Negative Normal Negative [facility] Comment on above: Order Comment: Clean catch, midstreamif symptomatic. Urine culture if positive for bacteria, blood, protein, white blood count over 5, nitrates or leukocyte esterase positive Performed By: #### C BCA, PINR, CMP #### [facility] ([id number]) [address] [place] [address] Specific gravity (U) [Rel density] 1.020 Normal 1.003-1.[address] [place] [address] Comment on above: Order Comment: Clean catch, midstreamif symptomatic. Urine culture if positive for bacteria, blood, protein, white blood count over 5, nitrates or leukocyte esterase positive Performed By: #### C BCA, PINR, CMP #### [facility] ([id number]) [address] [place] [address] TURBIDITY Clear Normal Clear [facility] Comment on above: Order Comment: Clean catch, midstreamif symptomatic. Urine culture if positive for bacteria, blood, protein, white blood count over 5, nitrates or leukocyte esterase positive Performed By: #### C BCA, PINR, CMP #### [facility] ([id number]) [address] [place] [address] UROBILINOGEN 2 eu/dL Abnormal <1.1 eu/dL [facility] Comment on above: Order Comment: Clean catch, midstreamif symptomatic. Urine culture if positive for bacteria, blood, protein, white blood count over 5, nitrates or leukocyte esterase positive Performed By: #### C OSMEL AGUILAR, CMP #### [facility] ([id number]) [address] [place] [address] URINE CULTUREon 01-15-2025 Bacteria identified Cx Nom (U) CULTURE RESULTS <10,000 ORGANISMS/mL NORMAL URO GENITAL KIMBERLEY Normal [facility] Comment on above: Performed By: #### C LAUREN, OSMEL, CMP #### [facility] ([id number]) [address] [place] [address] Glucose Poct Glucometerson 0 12-30-2024 Commemt1 Glu2: Cleaned Meter Normal [facility] Comment on above: Result Comment: PERF ORMED BY: [facility] [address] [place] [address] PATHOLOGIST REED OR WIND INSTRUMENT REPAIRER YVONNE RODRIGUEZ M.D. Performed By: #### G AGUS #### Point of Care testing , Glucose [Mass/Vol] 106 mg/dL Normal [facility] Comment on above: Result Comment: Gleason Glucose Reference Range is dependent on time and content of last meal. Glucose of more than 200 mg/dL in a nonstressed, ambulatory subject supports the diagnosis of Diabetes Mellitus. Performed By: #### G LULS #### Point of Care testing , CNPCynthia 12-18-2024 ELIANEN Telephone (RUDDY) -------- RUTH SMITH ([id number]) 1970 M Date Time Provider Department 12/18/24 BERENGER, ABRAHAN G PAINLN During your visit today, we recorded [...] until his 01/03 appt Please advise Komal Hernadez APRN.ELIANE 12/24/2024 9:25 AM Signed Can we call [...] Spoke with pt, reviewed below message from [facility]. Patient denies the following red flag symptoms: [...] UGI and lower GI scopes on Monday. Azul Fry 12/26/2024 11:17 AM Signed Pt calling to ask if something could be called in for pain? He states this is neck and leg pain. He is not sleeping well or eating much because of this. Please advise Pharm: Stephani Hernadez, Komal Valdes APRN.DYNAMICS AX SOLUTION ARCHITECT 12/26/2024 1:56 PM Signed Office visit reviewed with Dr. Rinaldi who recommended consult to [facility] Pain [facility] Continue Gabapentin 400/400/800 Komal Hernadez APRN.Karen Mcneill LPN 12/27/2024 2:06 PM Signed Spoke with pt, reviewed below message, pt verbalized understanding. [facility] pamphlet mailed to pt verified home address. Deepa Fragoso 01/03/2025 2:07 PM Signed Pt called for clarification on appt. Pt scheduled for today 01/03/25 for follow up visit and asked if the visit should be done with today with Komal Hernadez, or should the patient see Chronic pain. Attempted to reach in office for clarification, reached out to provider in [facility]. Per Komal Hernadez DYNAMICS AX SOLUTION ARCHITECT, Patient should see Chronic pain clinic first and then a visit with Komal Hernadez after the patient sees Dr. Mcnally. Please assist with scheduling a new visit with Pain RAJESH after the visit. Please advise how soon after Chronic pain visit should the patient be seen? Allergies As of Date: 12/18/2024 Noted Allergy Reaction CLINDAMYCIN 11/28/2024 14 - Other: See Comments INSULIN GLARGINE 12/01/2023 8 - GI Upset Comments: basaglar Date Reviewed: 12/16/2024 Reviewed by: Gianna Terry RN - Fully Assessed Reason for Visit: Pain Procedure Response AND follow up [Other] Cmt: Right L5-S1 Transforaminal Epidural Steroid injection # 1 Prescriptions as of 01/03/2025 - hyoscyamine (LEVSIN) 0.125 mg tablet Take 0.125 mg by mouth. - omeprazole (PRILOSEC) 40 (more content not included)... [facility] HISTORY PHYSICALon HISTORY PHYSICAL HNO ID: [id number] Author: ABRAHAN RINALDI MD Service: Pain Management [...] December 16, 2024 TIME: 8:12 AM Normal [facility] HISTORY PHYSICAL HNO ID: [id number] Author: MARC NULL APRN.DYNAMICS AX SOLUTION ARCHITECT Service: ? Author Type: Nurse Practitioner Type: [...] GUIDANCE FLUORO OR CT SIGNATURE: Marc Null APRN.DYNAMICS AX SOLUTION ARCHITECT PATIENT NAME: Ruth Smith DATE: December 16, 2024 TIME: 7:50 AM Normal [facility] OPERATIVE NOon 12-16-2024 OPERATIVE NO HNO ID: [id number] Author: ABRAHAN RINALDI MD Service: Pain Management Author Type: Physician Type: Operative Report Filed: 12/16/2024 08:27 Note Text: Patient Name Medical Record # Ruth Smith [id number] Date of : 1970 Admit Date: December 16, 2024 Sex / Age: male/54 year old Discharge Date: December 16, 2024 Attending Physician: Abrahan Rinaldi MD Date: December 16, 2024 Service: OPERATIVE REPORT LOG ID: [id number] Surgery/Procedure Date: 12/16/2024 Incision/Procedure Start Time: 8:16 AM Incision Close/Procedure End Time: 8:20 AM Surgeon(s)/Proceduralist (s) and Supervisor Mold Construction(s): Surgeons and Role: * Abrahan Rinaldi MD - Primary No Additional Staff PREOPERATIVE DIAGNOSIS: Right Lumbosacral Radiculopathy and Lumbar Postlaminectomy Syndrome POSTOPERATIVE DIAGNOSIS: Same NAME OF OPERATION: Right L5-S1 Transforaminal Epidural Steroid injection # 1 under fluoroscopic guidance. 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 Implantable Device: None. Specimen: None. I, Abrahan Rinaldi MD performed the entire procedure. ASSESSMENT AND [...] MD Pain Management December 16, 2024 [facility] US abdomen limitedon 025 US abdomen limited [facility] [address] [place] [address] Ultrasound Report Signed Patient: Ruth Smith MR#: [id number] : 1970 Acct:[id number] Age/Sex: 54 / M ADM Date: 12/12/24 Loc: Room: Type: [facility] Attending Dr: Guillermo Thornton MD Ordering [...] Kuo M.D. 12/12/2024 7:59 PM Dictation Location: [address] [address] Tech: Keren Hope Transcribed By: YAZ 12/12/241958 Dictated By: Thierry Kuo MD 12/12/241954 Signed By: 12/12/241958 Normal [facility] Measure post void residualon 12-04-2024 Volume 83 mL [facility] CNPNon 12-02-2024 CNPN Telephone (ORLORA) -------- RUTH SMITH ([id number]) 1970 M Date Time Provider Department 12/02/24 ABRAHAN RINALDI During your visit today, we recorded the following information about you: Brennen Agrawal 12/02/2024 9:22 AM Signed Right L5-S1 TFESI RUTH SMITH [id number] IESHA 12/16 -THINNERS +DM Patient was made aware that the [facility] will call the day prior to scheduled procedure between the hours of 12 and 4 pm to advise patient of arrival time the day of procedure. 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 on the day of their [...] (HCC) [E11.42] Order(s):SURGICAL REQUEST - ELECTIVE (03/2020) [[id number]] Order #: [id number]: 1 Prescriptions as of 12/02/2024 - hyoscyamine [...] Status:Closed by BRENNEN AGRAWAL on 12/02/24 Normal [facility] CARCINOEMBRYONIC ANTIGENon 0 11-29-2024 Carcinoembryonic Ag [Mass/Vol] 4.1 ng/mL High NINF - 2.9 ng/mL [facility] Comment on above: Carcinoembryonic ant igen test is used as an aid in monitoring response to treatment or recurrence in patients with established colorectal, breast, lung, prostatic, pancreatic, and ovarian carcinomas. Clinical correlation is required. The Carcinoembryonic antigen test was performed using the K[employer] One Cig Unicel DXI paramagnetic particle chemiluminescent immunoassay method. Results obtained with different assay methods or kits cannot be used interchangeably. CBC W Auto Differential pane l (Bld)on 11-29-2024 Basophils (Bld) [#/Vol] 0.05 10*3/uL [facility] Basophils/100 WBC (Bld) 0.6 % [facility] Differential cell count method Nom (Bld) Auto [facility] Eosinophils (Bld) [#/Vol] 0.03 10*3/uL [facility] Eosinophils/100 WBC (Bld) 0.3 % [facility] Erythrocyte distribution width (RBC) [Ratio] 15.2 % High 11.5 - 15.0 % [facility] Hematocrit (Bld) [Volume fraction] 46.3 % 39.0 - 51.0 % [facility] Hemoglobin (Bld) [Mass/Vol] 15.3 g/dL 13.0 - 17.0 g/dL [facility] Immature granulocytes (Bld) [#/Vol] 0.04 10*3/uL [facility] Immature granulocytes/100 WBC (Bld) 0.5 % [facility] Interpretation and review of laboratory results Abnormal [facility] Lymphocytes (Bld) [#/Vol] 2.06 10*3/uL [facility] Lymphocytes/100 WBC (Bld) 23.7 % [facility] MCH (RBC) [Entitic mass] 27.5 pg 26.0 - 34.0 pg [facility] MCHC (RBC) [Mass/Vol] 33 g/dL 30.5 - 36.0 g/dL [facility] MCV (RBC) [Entitic vol] 83.1 fL 80.0 - 100.0 fL [facility] Monocytes (Bld) [#/Vol] 0.52 10*3/uL NINF [facility] Monocytes/100 WBC (Bld) 6 % [facility] Neutrophils (Bld) [#/Vol] 5.99 10*3/uL [facility] Neutrophils/100 WBC (Bld) 68.9 % [facility] Nucleated RBC (Bld) [#/Vol] NINF [facility] Nucleated RBC/100 WBC (Bld) [Ratio] 0 % /100 WBC [facility] Platelet mean volume (Bld) [Entitic vol] 12.9 fL High 9.0 - 12.7 fL [facility] Platelets (Bld) [#/Vol] 135 10*3/uL Low [facility] RBC (Bld) [#/Vol] 5.57 10*6/uL 4.20 - 6.00 m/uL [facility] WBC (Bld) [#/Vol] 8.69 10*3/uL [facility] Carcinoembryonic Ag [Mass/Vo l]on 11-29-2024 Interpretation and review of laboratory results Abnormal [facility] Comprehensive metabolic 2000 panelOrdered By: Malou Mckee on 11-29-2024 Albumin [Mass/Vol] 4.8 g/dL 3.9 - 4.9 g/dL [facility] ALP [Catalytic activity/Vol] 80 U/L 38 - 113 U/L [facility] ALT [Catalytic activity/Vol] 7 U/L Low 10 - 54 U/L [facility] Anion gap [Moles/Vol] 14 mmol/L 8 - 15 mmol/L [facility] AST [Catalytic activity/Vol] 14 U/L 14 - 40 U/L [facility] Bilirubin [Mass/Vol] 0.6 mg/dL 0.2 - 1 .3 mg/dL [facility] Calcium [Mass/Vol] 10.3 mg/dL High 8.5 - 10. 2 mg/dL [facility] Chloride [Moles/Vol] 101 mmol/L 98 - 10 7 mmol/L [facility] CO2 [Moles/Vol] 23 mmol/L 22 - 30 mmol/L [facility] Creatinine [Mass/Vol] 0.77 mg/dL 0.73 - 1.22 mg/dL [facility] GFR/1.73 sq M.predicted among non-blacks MDRD (S/P/Bld) [Vol rate/Area] 105 mL/min/{1.73_m2} - PINF [facility] Comment on above: Estimated Glomerular Filtration [...] 150 mg/dL High 74 - 99 mg/dL [facility] Comment on above: The [place] Diab[place] Association (ADA) provides guidance for [...] Standards of Medical Care in Diabetes 2016, [place] [employer] Association. Diabetes Care. 2016.39(Suppl 1). Potassium [Moles/Vol] 4.2 mmol/L 3.7 - 5.1 mmol/L [facility] Protein [Mass/Vol] 7.6 g/dL 6.3 - 8.0 g/dL [facility] Sodium [Moles/Vol] 138 mmol/L 136 - 144 mmol/L [facility] Urea nitrogen [Mass/Vol] 10 mg/dL 9 - 24 mg/dL [facility] FOLATE, SERUMon 11-29-2024 Folate [Mass/Vol] 11.6 ng/mL 4.7 - PINF ng/mL [facility] LACTATE DEHYDROGENASEon 11-12 LDH [Catalytic activity/Vol] 130 U/L Low 135 - 225 U/L [facility] Comment on above: Hemolysis present. T [...] Interpretation and review of laboratory results Abnormal [facility] No Panel Informationon 11-29 Interpretation and review of laboratory results Normal [facility] Nuclear Ab IA Ql (S)on 11-29 LEATHA Scr Qual Negative Negative [facility] Comment on above: The qualitative anti nuclear antibody screen test performed using the following antigens: dsDNA, Chromatin, Ribosomal P, SS-A 60, SS-A 52, SS-B, Sm, SmRNP, FINANCIAL UNDERWRITER A, FINANCIAL UNDERWRITER 68, Scl-70, Deidra-1, and Centromere B. Methodology: Multiplex flow immunoassay. Interpretation and review of laboratory results Normal [facility] VITAMIN B12on 11-29-2024 Cobalamin (Vitamin B12) [Mass/Vol] 306 pg/mL 232 - 1245 pg/mL [facility] CBC W Auto Differential pane l (Bld)on 11-28-2024 Basophils (Bld) [#/Vol] 0.05 10*3/uL Normal <0.11 [facility] Comment on above: Order Comment: Speci men Type: BLOOD SPECIMENOrdering Facility: [facility] Address: [address] [place] [address] Performed By: #### 5 7021-8 ####[facility] LABCLIA [id number] [place] [address] Basophils/100 WBC (Bld) 0.6 % Normal [facility] Comment on above: Order Comment: Speci men Type: BLOOD SPECIMENOrdering Facility: [facility] Address: [address] [place] [address] Performed By: #### 5 7021-8 ####[facility] LABCLIA [id number] [place] [address] Differential cell count method Nom (Bld) Auto Normal [facility] Comment on above: Order Comment: Speci men Type: BLOOD SPECIMENOrdering Facility: [facility] Address: [address] [place] [address] Performed By: #### 5 7021-8 ####[facility] LABCLIA [id number] [place] [address] Eosinophils (Bld) [#/Vol] 0.03 10*3/uL Normal <0.46 [facility] Comment on above: Order Comment: Speci men Type: BLOOD SPECIMENOrdering Facility: [facility] Address: [address] [place] [address] Performed By: #### 5 7021-8 ####[facility] LABCLIA [id number] [place] [address] Eosinophils/100 WBC (Bld) 0.3 % Normal [facility] Comment on above: Order Comment: Speci men Type: BLOOD SPECIMENOrdering Facility: [facility] Address: [address] [place] [address] Performed By: #### 5 7021-8 ####[facility] LABCLIA [id number] [place] [address] Erythrocyte distribution width (RBC) [Ratio] 15.2 % High 11.5-15.0 [facility] Comment on above: Order Comment: Speci men Type: BLOOD SPECIMENOrdering Facility: [facility] Address: [address] [place] [address] Performed By: #### 5 7021-8 ####[facility] LABCLIA [id number] [place] [address] Hematocrit (Bld) [Volume fraction] 46.3 % Normal 39.0-51.0 [facility] Comment on above: Order Comment: Speci men Type: BLOOD SPECIMENOrdering Facility: [facility] Address: [address] [place] [address] Performed By: #### 5 7021-8 ####[facility] LABCLIA [id number] [place] [address] Hemoglobin (Bld) [Mass/Vol] 15.3 g/dL Normal 13.0-17.0 [facility] Comment on above: Order Comment: Speci men Type: BLOOD SPECIMENOrdering Facility: [facility] Address: [address] [place] [address] Performed By: #### 5 7021-8 ####[facility] LABCLIA [id number] [place] [address] Immature granulocytes (Bld) [#/Vol] 0.04 10*3/uL Normal <0.10 [facility] Comment on above: Order Comment: Speci men Type: BLOOD SPECIMENOrdering Facility: [facility] Address: [address] [place] [address] Performed By: #### 5 7021-8 ####[facility] LABCLIA [id number] [place] [address] Immature granulocytes/100 WBC (Bld) 0.5 % Normal [facility] Comment on above: Order Comment: Speci men Type: BLOOD SPECIMENOrdering Facility: [facility] Address: [address] [place] [address] Performed By: #### 5 7021-8 ####[facility] LABCLIA [id number] [place] [address] Lymphocytes (Bld) [#/Vol] 2.06 10*3/uL Normal 1.00-4.00 [facility] Comment on above: Order Comment: Speci men Type: BLOOD SPECIMENOrdering Facility: [facility] Address: [address] [place] [address] Performed By: #### 5 7021-8 ####[facility] LABCLIA [id number] [place] [address] Lymphocytes/100 WBC (Bld) 23.7 % Normal [facility] Comment on above: Order Comment: Speci men Type: BLOOD SPECIMENOrdering Facility: [facility] Address: [address] [place] [address] Performed By: #### 5 7021-8 ####[facility] LABCLIA [id number] [place] [address] MCH (RBC) [Entitic mass] 27.5 pg Normal 26.0-34.0 [facility] Comment on above: Order Comment: Speci men Type: BLOOD SPECIMENOrdering Facility: [facility] Address: [address] [place] [address] Performed By: #### 5 7021-8 ####[facility] LABCLIA [id number] [place] [address] MCHC (RBC) [Mass/Vol] 33.0 g/dL Normal 30.5-36.0 [facility] Comment on above: Order Comment: Speci men Type: BLOOD SPECIMENOrdering Facility: [facility] Address: [address] [place] [address] Performed By: #### 5 7021-8 ####[facility] LABCLIA [id number] [place] [address] MCV (RBC) [Entitic vol] 83.1 fL Normal 80.0-100.0 [facility] Comment on above: Order Comment: Speci men Type: BLOOD SPECIMENOrdering Facility: [facility] Address: [address] [place] [address] Performed By: #### 5 7021-8 ####[facility] LABCLIA [id number] [place] [address] Monocytes (Bld) [#/Vol] 0.52 10*3/uL Normal <0.87 [facility] Comment on above: Order Comment: Speci men Type: BLOOD SPECIMENOrdering Facility: [facility] Address: [address] [place] [address] Performed By: #### 5 7021-8 ####[facility] LABCLIA [id number] [place] [address] Monocytes/100 WBC (Bld) 6.0 % Normal [facility] Comment on above: Order Comment: Speci men Type: BLOOD SPECIMENOrdering Facility: [facility] Address: [address] [place] [address] Performed By: #### 5 7021-8 ####[facility] LABCLIA [id number] [place] [address] Neutrophils (Bld) [#/Vol] 5.99 10*3/uL Normal 1.45-7.50 [facility] Comment on above: Order Comment: Speci men Type: BLOOD SPECIMENOrdering Facility: [facility] Address: [address] [place] [address] Performed By: #### 5 7021-8 ####[facility] LABCLIA [id number] [place] [address] Neutrophils/100 WBC (Bld) 68.9 % Normal [facility] Comment on above: Order Comment: Speci men Type: BLOOD SPECIMENOrdering Facility: [facility] Address: [address] [place] [address] Performed By: #### 5 7021-8 ####[facility] LABCLIA [id number] [place] [address] Nucleated RBC (Bld) [#/Vol] 10*3/uL Normal <0.01 [facility] Comment on above: Order Comment: Speci men Type: BLOOD SPECIMENOrdering Facility: [facility] Address: [address] [place] [address] Performed By: #### 5 7021-8 ####[facility] LABCLIA [id number] [place] [address] Nucleated RBC/100 WBC (Bld) [Ratio] 0.0 /100 WBC Normal [facility] Comment on above: Order Comment: Speci men Type: BLOOD SPECIMENOrdering Facility: [facility] Address: [address] [place] [address] Performed By: #### 5 7021-8 ####[facility] LABCLIA [id number] [place] [address] Platelet mean volume (Bld) [Entitic vol] 12.9 fL High 9.0-12.7 [facility] Comment on above: Order Comment: Speci men Type: BLOOD SPECIMENOrdering Facility: [facility] Address: [address] [place] [address] Performed By: #### 5 7021-8 ####[facility] LABCLIA [id number] [place] [address] Platelets (Bld) [#/Vol] 135 10*3/uL Low 150-400 [facility] Comment on above: Order Comment: Speci men Type: BLOOD SPECIMENOrdering Facility: [facility] Address: [address] [place] [address] Performed By: #### 5 7021-8 ####[facility] LABCLIA [id number] [place] [address] RBC (Bld) [#/Vol] 5.57 10*6/uL Normal 4.20-6.00 [facility] Comment on above: Order Comment: Speci men Type: BLOOD SPECIMENOrdering Facility: [facility] Address: [address] [place] [address] Performed By: #### 5 7021-8 ####[facility] LABIA [id number] [place] [address] WBC (Bld) [#/Vol] 8.69 10*3/uL Normal 3.70-11.00 [facility] Comment on above: Order Comment: Speci men Type: BLOOD SPECIMENOrdering Facility: [facility] Address: [address] [place], [place] [address] [address] Performed By: #### 5 7021-8 ####[facility] LABCLIA [id number] [place] [id number] CEA SerPl-mCncon 11-28-2024 Carcinoembryonic Ag [Mass/Vol] 4.1 ng/mL High <=2.9 [facility] Comment on above: Order Comment: Speci men Type: BLOOD SPECIMENOrdering Facility: [facility] Address: [address] [facility] [place] [address] Result Comment: Carc inoembryonic antigen test is used as an aid in monitoring response to treatment or recurrence in patients with established colorectal, breast, lung, prostatic, pancreatic, and ovarian carcinomas. Clinical correlation is required. The Carcinoembryonic antigen test was performed using the Kati Gen One Cig Unicel DXI paramagnetic particle chemiluminescent immunoassay method. Results obtained with different assay methods or kits cannot be used interchangeably. Performed By: #### 2 039-6 ####[facility] LABCLIA [id number] [facility] [place] [address] [place] CNOVSPon 11-28-2024 CNOVSP Visit (SP) Office (HEMASA) -------- RUTH SMITH ([id number]) 1970 M Date Time Provider Department 11/28/24 4:00 PM ZAC CROUCH During your visit today, we recorded the following information about you: Temperature Pulse Respiration Blood pressure 97.9 degrees 91/minute 18/minute 143/83 Weight 105 kg Zac Crouch MD 11/29/2024 8:20 AM Signed PATIENT NAME: Ruth Greerson [facility] NO.: [id number] ATTENDING PHYSICIAN: Zac Crouch MD DATE OF SERVICE: November 28, [address] Abrahan Rinaldi [address] [facility] [address] thank you for referring Ruth Smith for [...] in NA (more content not included)... Normal [facility] COPPER BLOODon 11-28-2024 Copper [Mass/Vol] 83 ug/dL Normal 70-140 [facility] Comment on above: Order Comment: Speci men Type: BLOOD SPECIMENOrdering Facility: [facility] Address: [address] [place] [address] Result Comment: This test was developed, and its performance characteristics determined by the [facility] Department of Pathology and Laboratory Medicine. It has not been cleared or approved by the FDA. The [facility] Department of Pathology and Laboratory Medicine is regulated under CLIA as qualified to perform high-complexity testing. This test is used for clinical purposes. It should not be regarded as investigational or for research. Performed By: #### Venu DEL CASTILLO, 5763-8 ####[facility] LABCLIA [id number] [place] [address] [place] Comprehensive metabolic 2000 panelon 11-28-2024 Albumin [Mass/Vol] 4.8 g/dL Normal 3.9-4.9 [facility] Comment on above: Order Comment: Speci men Type: BLOOD SPECIMENOrdering Facility: [facility] Address: [address] [place] [address] Performed By: #### 2 4323-8, 0 ####[facility] LABCLIA [id number] [place] [address] ALP [Catalytic activity/Vol] 80 U/L Normal 38-113 [facility] Comment on above: Order Comment: Speci men Type: BLOOD SPECIMENOrdering Facility: [facility] Address: [address] [place] [address] Performed By: #### 2 4323-8, 2531-0 ####[facility] LABCLIA [id number] [place] [address] ALT [Catalytic activity/Vol] 7 U/L Low 10-54 [facility] Comment on above: Order Comment: Speci men Type: BLOOD SPECIMENOrdering Facility: [facility] Address: [address] [place], [place] [address] Performed By: #### 2 4323-8, 2531-0 ####[facility] LABCLIA [id number] [place] [address] Anion gap [Moles/Vol] 14 mmol/L Normal 8-15 [facility] Comment on above: Order Comment: Speci men Type: BLOOD SPECIMENOrdering Facility: [facility] Address: [address] [place] [address] Performed By: #### 2 4323-8, 2531-0 ####[facility] LABCLIA [id number] [place] [address] AST [Catalytic activity/Vol] 14 U/L Normal 14-40 [facility] Comment on above: Order Comment: Speci men Type: BLOOD SPECIMENOrdering Facility: [facility] Address: [address] [place] [address] Performed By: #### 2 4323-8, 2531-0 ####[facility] LABCLIA [id number] [place] [address] Bilirubin [Mass/Vol] 0.6 mg/dL Normal 0.2-1.3 [facility] Comment on above: Order Comment: Speci men Type: BLOOD SPECIMENOrdering Facility: [facility] Address: [address] [place] [address] Performed By: #### 2 4323-8, 2532-0 ####[facility] LABCLIA [id number] [place] [address] Calcium [Mass/Vol] 10.3 mg/dL High 8.5-10.2 [facility] Comment on above: Order Comment: Speci men Type: BLOOD SPECIMENOrdering Facility: [facility] Address: [address] [place] [address] [place] [address] Performed By: #### 2 4323-8, 2532-0 ####[facility] LABCLIA [id number] [place] [address] Chloride [Moles/Vol] 101 mmol/L Normal 98-107 [facility] Comment on above: Order Comment: Speci men Type: BLOOD SPECIMENOrdering Facility: [facility] Address: [address] [place] [address] Performed By: #### 2 4323-8, 2532-0 ####[facility] LABCLIA [id number] [place] [address] CO2 [Moles/Vol] 23 mmol/L Normal 22-30 [facility] Comment on above: Order Comment: Speci men Type: BLOOD SPECIMENOrdering Facility: [facility] Address: [address] [place] [address] Performed By: #### 2 4323-8, 2531-0 ####[facility] LABCLIA [id number] [place] [address] Creatinine [Mass/Vol] 0.77 mg/dL Normal 0.73-1.22 [facility] Comment on above: Order Comment: Speci men Type: BLOOD SPECIMENOrdering Facility: [facility] Address: [address] [place] [address] Performed By: #### 2 4323-8, 2531-0 ####[facility] LABCLIA [id number] [place] [address] Creatinine and Glomerular filtration rate.predicted panel (S/P/Bld) 105 mL/min/1.73m??? Normal >=60 [facility] Comment on above: Order Comment: Speci men Type: BLOOD SPECIMENOrdering Facility: [facility] Address: [address] [place] [address] Result Comment: Lou mated Glomerular Filtration Rate [...] actual GFR. Performed By: #### 2 4323-8, 0 ####[facility] LABCLIA [id number] [place] [address] Glucose [Mass/Vol] 150 mg/dL High 74-99 [facility] Comment on above: Order Comment: Speci men Type: BLOOD SPECIMENOrdering Facility: [facility] Address: [address] [place] [address] Result Comment: The [place] [employer] Association (ADA) provides guidance for cutoff [...] Standards of Medical Care in Diabetes 2016, [place] [employer]. Diabetes Care. 2016.39(Suppl 1). Performed By: #### 2 43238, ####[facility] LABCLIA [id number] [place] [address] Potassium [Moles/Vol] 4.2 mmol/L Normal 3.7-5.1 [facility] Comment on above: Order Comment: Speci men Type: BLOOD SPECIMENOrdering Facility: [facility] Address: [address] [place] [address] Performed By: #### 2 4328, 0 ####[facility] LABCLIA [id number] [place] [address] Protein [Mass/Vol] 7.6 g/dL Normal 6.3-8.0 [facility] Comment on above: Order Comment: Speci men Type: BLOOD SPECIMENOrdering Facility: [facility] Address: [address] [place] [address] Performed By: #### 2 4323-8, 2531-0 ####[facility] LABCLIA [id number] [place] [address] Sodium [Moles/Vol] 138 mmol/L Normal 136-144 [facility] Comment on above: Order Comment: Speci men Type: BLOOD SPECIMENOrdering Facility: [facility] Address: [address] [place] [address] Performed By: #### 2 4323-8, 2531-0 ####[facility] LABCLIA [id number] [place] [address] Urea nitrogen [Mass/Vol] 10 mg/dL Normal 9-24 [facility] Comment on above: Order Comment: Speci men Type: BLOOD SPECIMENOrdering Facility: [facility] Address: [address] [place] [address] Performed By: #### 2 4323-8, 2531-0 ####[facility] LABCLIA [id number] [place] [address] Folate SerPl-mCncon 11-29-19 25 Folate [Mass/Vol] 11.6 ng/mL Normal >4.7 [facility] Comment on above: Order Comment: Speci men Type: BLOOD SPECIMENOrdering Facility: [facility] Address: [address] [place] [address] Performed By: #### 2 132-9, 2284-8 ####[facility] LABCLIA [id number] [place] [address] [place] LDH SerPl-cCncon 11-28-2024 LDH [Catalytic activity/Vol] 130 U/L Low 135-225 [facility] Comment on above: Order Comment: Speci men Type: BLOOD SPECIMENOrdering Facility: [facility] Address: [address] [place], [place] [address] Result Comment: Hemo lysis present. The origin [...] clinically indicated. Performed By: #### 2 4323-8, 2532-0 ####[facility] LABCLIA [id number] [place] [address] Nuclear Ab IA Ql (S)on 11-28 LEATHA SCR QUAL Negative Normal Negative [facility] Comment on above: Order Comment: Ricky rosenthal Type: BLOOD SPECIMENOrdering Facility: [facility] Address: [address] [place] [address] Result Comment: The qualitative antinuclear antibody screen test performed using the following antigens: dsDNA, Chromatin, Ribosomal P, SS-A 60, SS-A 52, SS-B, Sm, SmRNP, FINANCIAL UNDERWRITER A, FINANCIAL UNDERWRITER 68, Scl-70, Deidra-1, and Centromere B. Methodology: Multiplex flow immunoassay. Performed By: #### 4 7383-5 ####[facility] LABIA [id number] [place] [address] [place] Vit B12 SerPl-mCncon 025 Cobalamin (Vitamin B12) [Mass/Vol] 306 pg/mL Normal 232-1245 [facility] Comment on above: Order Comment: Ricky rosenthal Type: BLOOD SPECIMENOrdering Facility: [facility] Address: [address] [place] [address] Performed By: #### 2 132-9, 2284-8 ####[facility] [id number] [place] [address] [place] Zinc SerPl-mCncon 11-28-2024 Zinc [Mass/Vol] 76 ug/dL Normal 60-120 [facility] Comment on above: Order Comment: Ricky rosenthal Type: BLOOD SPECIMENOrdering Facility: [facility] Address: [address] [place] [id number] Result Comment: This test was developed, and its performance characteristics determined by the [facility] Department of Pathology and Laboratory Medicine. It has not been cleared or approved by the FDA. The [facility] Department of Pathology and Laboratory Medicine is regulated under CLIA as qualified to perform high-complexity testing. This test is used for clinical purposes. It should not be regarded as investigational or for research. Performed By: #### C ABUNDIO, 5763-8 ####[facility] LABCLIA [id number] [address] [facility] CNPN Telephone (HEMASA) -------- RUTH SMITH ([id number]) 1970 M Date Time Provider Department 11/25/24 ZAC CROUCH HEMASA During your visit today, we recorded the [...] by DONAVON DE LA GARZA on 11/25/24 [facility] CNOVon 11-22-2024 CNOV Office Visit (PAINLN ) -------- RUTH SMITH ([id number]) 1970 M Date Time Provider Department 11/22/24 2:00 PM ABRAHAN RINALDI PAINLN During your visit today, we recorded the following information about you: Pulse Weight Height 110/minute 102.1 kg 1.854 m Abrahan Rinaldi MD 11/25/2024 8:23 AM Signed SUBJECTIVE: Mr. 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 Bench Tool Maker: No Passive conservative therapy lasting 6 weeks in the last six months (see below) 1. Medical devises: No 2. Acupuncture: No 3. Tens unit: No 4. Prescription pain medication: Yes 5. NSAIDS: Yes OCCUPATIONAL HISTORY: Aruna Distributaion HISTORY OF TRAUMA/OVERUSE OF AREA: No [...] PAST SURGICAL HISTORY OF back injections EXAMINATION: [id number] OR: Scoliosis: No Pelvic Tilt: No Leg [...] symmetric, nor (more content not included)... Normal [facility] CBC AND AUTO DIFFon 11-13-19 25 ABSOLUTE BASOPHIL 0.0 X10E9/L Normal 0.0-0.2 [facility] Comment on above: Performed By: #### C BCA PINR, CMP #### [facility] ([id number]) [address] [place] [address] ABSOLUTE NEUTROPHIL 5.8 X10E9/L Normal 1.5-6.6 [facility] Comment on above: Performed By: #### C BCA, PINR, CMP #### [facility] ([id number]) [address] [place] [address] Basophils/100 WBC (Bld) 0.5 % Normal [facility] Comment on above: Performed By: #### C BCA, PINR, CMP #### [facility] ([id number]) [address] [place] [address] Eosinophils (Bld) [#/Vol] 0.0 10*3/uL Normal 0.0-0.4 [facility] Comment on above: Performed By: #### C OSMEL AGUILAR, CMP #### [facility] ([id number]) [address] [place] [address] Eosinophils/100 WBC (Bld) 0.3 % Normal [facility] Comment on above: Performed By: #### C KRISTI AGUILARR, CMP #### [facility] ([id number]) [address] [place] [address] Erythrocyte distribution width (RBC) [Ratio] 15.9 % High 11.5-15.0 [facility] Comment on above: Performed By: #### C KRISTI AGUILARR, CMP #### [facility] ([id number]) [address] [place] [address] Hematocrit (Bld) [Volume fraction] 45.0 % Normal 39-49 [facility] Comment on above: Performed By: #### C KRISTI AGUILARR, CMP #### [facility] ([id number]) [address] [place] [address] Hemoglobin (Bld) [Mass/Vol] 15.2 g/dL Normal 13.0-17.0 [facility] Comment on above: Performed By: #### C KRISTI AGUILARR, CMP #### [facility] ([id number]) [address] [place] [address] Lymphocytes (Bld) [#/Vol] 1.7 10*3/uL Normal 1.0-3.5 [facility] Comment on above: Performed By: #### C KRISTI AGUILARR, CMP #### [facility] ([id number]) [address] [place] [address] Lymphocytes/100 WBC (Bld) 20.7 % Normal [facility] Comment on above: Performed By: #### C LAUREN PINR, CMP #### [facility] ([id number]) [address] [place] [address] MCH (RBC) [Entitic mass] 27.7 pg Normal 27-34 [facility] Comment on above: Performed By: #### C LAUREN, PINR, CMP #### [facility] ([id number]) [address] [place] [address] MCHC (RBC) [Mass/Vol] 33.8 g/dL Normal 32-36 [facility] Comment on above: Performed By: #### C LAUREN PINR, CMP #### [facility] ([id number]) [address] [place] [address] MCV (RBC) [Entitic vol] 82 fL Normal 80-100 [facility] Comment on above: Performed By: #### C LAUREN PINR, CMP #### [facility] ([id number]) [address] [place] [address] Monocytes (Bld) [#/Vol] 0.6 10*3/uL Normal 0-0.9 [facility] Comment on above: Performed By: #### C LAUREN, PINR, CMP #### [facility] ([id number]) [address] [place] [address] Monocytes/100 WBC (Bld) 7.6 % Normal [facility] Comment on above: Performed By: #### C LAUREN, PINR, CMP #### [facility] ([id number]) [address] [place] [address] Neutrophils/100 WBC (Bld) 70.9 % Normal [facility] Comment on above: Performed By: #### C BCA, PINR, CMP #### [facility] ([id number]) [address] [place] [address] Platelet mean volume (Bld) [Entitic vol] 11.0 fL Normal 7-12 [facility] Comment on above: Performed By: #### C BCA, PINR, CMP #### [facility] ([id number]) [address] [place] [address] Platelets (Bld) [#/Vol] 101 10*3/uL Low 150-450 [facility] Comment on above: Performed By: #### C BCA, PINR, CMP #### [facility] ([id number]) [address] [place] [address] 16660 RBC COUNT 5.48 X10E12/L Normal 4.10-5.70 [facility] Comment on above: Performed By: #### C BCA, PINR, CMP #### [facility] ([id number]) [address] [place] [address] 21268 WBC (Bld) [#/Vol] 8.2 10*3/uL Normal 4.0-11.0 [facility] Comment on above: Performed By: #### C BCA, PINR, CMP #### [facility] ([id number]) [address] [place] [address] COMPREHENSIVE METABOLIC PANE [facility] 11-12-2024 Albumin [Mass/Vol] 4.2 g/dL Normal 3.2-5.3 [facility] Comment on above: Performed By: #### C BCA, PINR, CMP #### [facility] ([id number]) [address] [place] [address] ALP [Catalytic activity/Vol] 63 U/L Normal 39-130 [facility] Comment on above: Performed By: #### C BCA, PINR, CMP #### [facility] ([id number]) [address] [place] [address] 489[address] ALT [Catalytic activity/Vol] 11 U/L Normal 0-40 [facility] Comment on above: Performed By: #### C BCA, PINR, CMP #### [facility] ([id number]) [address] [place] [address] Anion gap [Moles/Vol] 11 mmol/L Normal 5-15 [facility] Comment on above: Performed By: #### C BCA, PINR, CMP #### [facility] ([id number]) [address] [place] [address] AST [Catalytic activity/Vol] 19 U/L Normal 0-41 [facility] Comment on above: Performed By: #### C BCA, PINR, CMP #### [facility] ([id number]) [address] [place] [address] 31493 Bilirubin [Mass/Vol] 0.8 mg/dL Normal 0.3-1.2 [facility] Comment on above: Performed By: #### C BCA, PINR, CMP #### [facility] ([id number]) [address] [place] [address] [place] [address] Calcium [Mass/Vol] 9.3 mg/dL Normal 8.5-10.5 [facility] Comment on above: Performed By: #### C BCA, PINR, CMP #### [facility] ([id number]) [address] [place] [address] Chloride [Moles/Vol] 101 mmol/L Normal 98-109 [facility] Comment on above: Performed By: #### C BCA, PINR, CMP #### [facility] ([id number]) [address] [place] [address] 34421 CO2 [Moles/Vol] 26 mmol/L Normal 22-32 [facility] Comment on above: Performed By: #### C BCA, PINR, CMP #### [facility] ([id number]) [address] [place] [address] Creatinine [Mass/Vol] 0.86 mg/dL Normal 0.70-1.20 [facility] Comment on above: Result Comment: METH OD TRACEABLE TO IDMS STANDARD Performed By: #### C OSMEL AGUILAR, CMP #### [facility] ([id number]) [address] [place] [address]002 eGFR (CKD-EPI) NON-RACE DEPENDENT >90 Normal >59 [facility] Comment on above: Result Comment: Reported eGFR is based on the CKD-EPI 2020 equation that does not use a race coefficient. Performed By: #### C OSMEL AGUILAR, CMP #### [facility] ([id number]) [address] [place] [address]46[address] Glucose [Mass/Vol] 147 mg/dL High 65-99 [facility] Comment on above: Performed By: #### C OSMEL AGUILAR, CMP #### [facility] ([id number]) [address] [place] [id number] Potassium [Moles/Vol] 4.0 mmol/L Normal 3.5-5.0 [facility] Comment on above: Performed By: #### C OSMEL AGUILAR, CMP #### [facility] ([id number]) [address] [place] [id number] Protein [Mass/Vol] 7.5 g/dL Normal 6.0-8.0 [facility] Comment on above: Performed By: #### C KRISTI AGUILARR, CMP #### [facility] ([id number]) [address] [place] [id number] Sodium [Moles/Vol] 138 mmol/L Normal 134-146 [facility] Comment on above: Performed By: #### C LAUREN PINR, CMP #### [facility] ([id number]) [address] [place] [address] 85535 Urea nitrogen [Mass/Vol] 15 mg/dL Normal 5-23 [facility] Comment on above: Performed By: #### C LAUREN, KRISTIR, CMP #### [facility] ([id number]) [address] [facility] [place] [address] CT ABDOMEN AND PELVIS WO CON Ton [...] Tellez MD on 11/12/2024 4:42 PM Normal [facility] CT LUMBAR RECONSTRUCTIONon 0 11-12-2024 [...] Octavio Bagley on 11/12/2024 4:48 PM Normal [facility] URN MACROSCOPIC NURon 2024 BILIRUBIN MANNIE Negative Normal NEG [facility] Comment on above: Performed By: #### C BCA, PINR, CMP #### [facility] ([id number]) [address] [place] [address] 07123 BLOOD/HGB MANNIE Negative Normal NEG [facility] Comment on above: Performed By: #### C LAUREN, PINR, CMP #### [facility] ([id number]) [address] [place] [address] 59251 GLUCOSE MANNIE Negative Normal NEG [facility] Comment on above: Performed By: #### C BCA, PINR, CMP #### [facility] ([id number]) [address] [place] [address] 89344 KETONES MANNIE Negative Normal NEG [facility] Comment on above: Performed By: #### C BCA, PINR, CMP #### [facility] ([id number]) [address] [place] [address] [place] [address] LEUKOCYTE ESTERASE MANNIE Negative Normal NEG [facility] Comment on above: Performed By: #### C BCA, PINR, CMP #### [facility] ([id number]) [address] [place] [address] 75839 NITRITE MANNIE Negative Normal NEG [facility] Comment on above: Performed By: #### C BCA, PINR, CMP #### [facility] ([id number]) [address] [place] [address] 66050 PH MANNIE 7.5 Normal 5.0-8.5 [facility] Comment on above: Performed By: #### C BCA, PINR, CMP #### [facility] ([id number]) [address] [place] [address] [place] [address] PROTEIN MANNIE Negative Normal NEG [facility] Comment on above: Performed By: #### C BCA, PINR, CMP #### [facility] ([id number]) [address] [place] [address] [place] [address] SPECIFIC GRAVITY MANNIE 1.015 Normal 1.003-[address] [place] [address] Comment on above: Performed By: #### C BCA, PINR, CMP #### [facility] ([id number]) [address] [place] [address] 60259 UROBILINOGEN MANNIE 1.0 eu/dL Normal <1.1 [facility] Comment on above: Performed By: #### C BCA, PINR, CMP #### [facility] ([id number]) [address] [place] [address] [place] [address] XR SPINE LUMBAR 2 OR 3 VWSon [...] intact. Colonic stool burden is moderate. IMPRESSION: Nwjb-ye-mmmxpmnv degenerative changes and slight retrolisthesis L3 on L4. Finalized by Aaron Wright MD on 11/03/2024 1:06 PM Normal [facility] Magnetic resonance imaging r eportOrdered By: Thierry Kuo on 08-27-2024 Study report [facility] [address] [place] [address]93 MRI Report Signed Patient: Ruth Smith MR #: [id number] : 1970 Acct:[id number] Age/Sex: 54 / M ADM Date: 5 Loc: MR Room: Type: [facility] Attending Dr: Marcell DORMAN Copies to: DANDY Coon~ Ordering Provider: DANDY Coon Date of Service: 08/27/24 MR/MR lumbar spine wo/w con: M54.16,M47.816,M54.50,G8 9.29,Z98.898 ([id number]) XR/XR pre/post mri xray: M54.16,M47.816,M54.50,G8 9.29,Z98.890 MR lumbar spine wo/w con, XR pre/post mri xray 08/27/2024 1:49 PM SIGNS AND SYMPTOMS: ^M54.16,M47.816,M54.50,G 89.29,Z98.898 low back pain COMPARISON: MRI 04/15/2022 Contrast: 20 cc of ProHance was administered for the postcontrast imaging. FINDINGS: X-rays lumbar spine, 2 views: Multilevel degenerative changes throughout the lumbar spine with moderate severe disc space narrowing L4-S1 and L2-3. Tsqj-kq-pvdzsjma disc space narrowing elsewhere. Facet of the [...] Thierry Kuo M.D.08/27/2024 3:33 PM Dictation Location: [place] [address] Transcribed By: [facility] 08/27/24 153 Dictated By: Thierry Kuo MD 08/27/24 1519 Signed By: 08/27/24 1533 [facility] Work Phone: XR pre/post mri xrayon 08-27 XR pre/post mri xray [facility] [address] [place] [address] MRI Report Signed Patient: Ruth Smith MR#: [id number] : 1970 Acct:[id number] Age/Sex: 54 / M ADM Date: 08/27/24 Loc: MR Room: Type: [facility] Attending Dr: Marcell DORMAN Copies to: DANDY Coon Ordering Provider: DANDY Coon Date of Service: 08/27/24 MR/MR lumbar spine wo/w con: M54.16,M47.816,M54.50,G8 9.29,Z98.898 ([id number]) XR/XR pre/post mri xray: M54.16,M47.816,M54.50,G8 9.29,Z98.890 MR lumbar spine wo/w con, XR pre/post mri xray 08/27/2024 1:49 PM SIGNS AND SYMPTOMS: M54.16,M47.816,M54.50,G8 9.29,Z98.898 low back pain COMPARISON: MRI 04/15/2022 Contrast: 20 cc of ProHance was administered for the postcontrast imaging. FINDINGS: X-rays lumbar spine, 2 views: Multilevel degenerative changes throughout the lumbar spine with moderate severe disc space narrowing L4-S1 and L2-3. Wnlg-ht-mcpzcaax disc space narrowing elsewhere. Facet of the [...] Thierry Kuo M.D.08/27/2024 3:33 PM Dictation Location: [place] [address] Transcribed By: [facility] 08/27/24 1533 Dictated By: Thierry Kuo MD 08/27/24 1519 Signed By: 08/27/24 1533 Normal [facility] EMG 2 Extremitieson 08-05-20 24 Normal EMG of the bilateral upper extremities [facility] [place] -12 Nerveson 4 Normal EMG of the bilateral upper extremities [facility] [employer] [facility] $ Large Joint Injection: R g reater trochanteric bursaon 07-25-2024 Ang Figueroa MD 07/25/2024 2:13 PM $ Large Joint Injection: R greater trochanteric bursa on 07/25/2024 2:12 PM Indications: pain Details: 21 G needle, lateral approach Medications: 40 mg triamcinolone acetonide 40 mg/mL; 5 mL BUPivacaine HCl 0.25 % (2.5 mg/mL) MANUALLY TRANSCRIBED RESULTS [facility] XR HIP RT 2-3 VIEWS W OR [...] Tellez MD on 07/25/2024 2:52 PM Normal [facility] XR SPINE LUMB BENDING ONLY 2 [...] Tellez MD on 07/16/2024 4:38 PM Normal [facility] XR KNEE RT 1 OR 2 VWSon 11-0 XR KNEE RT 1 OR 2 VWS [...] Womack MD on 06/21/2024 10:10 AM Normal [facility] $ Large Joint Injection: R k daleeon 06-20-2024 Ang Figueroa MD 2023 2:44 PM $ Large Joint Injection: R knee on 06/20/2024 2:43 PM Indications: pain Details: 21 G needle, anterolateral approach Medications: 40 mg triamcinolone acetonide 40 mg/mL; 5 mL BUPivacaine HCl 0.25 % (2.5 mg/mL) MANUALLY TRANSCRIBED RESULTS [facility] Fibrin D-dimer DDU (PPP) [Ma ss/Vol]on 06-07-2024 D DIMER 309 ng/mL DDU High <255 [facility] Comment on above: Result [...] D-Dimer level. Performed By: #### 4 8066-5 #### [facility] ([id number]) [address] [place] [address] XR KNEE RT 1 OR 2 VWSon [...] Womack MD on 06/03/2024 3:54 PM Normal [facility] Fibrin D-dimer DDU (PPP) [Ma ss/Vol]on 05-07-2024 D DIMER 260 ng/mL DDU High <255 [facility] Comment on above: Result [...] D-Dimer level. Performed By: #### 4 8066-5 #### [facility] ([id number]) [address] [place] [address] [place] [address] XR HIP RT 2-3 VIEWS W OR [...] Trivedi DO on 05/07/2024 12:38 PM Normal [facility] XR FEMUR RT 2+ VIEWSon 04-18 XR FEMUR RT 2+ VIEWS XR FEMUR RT 2+ VIEW S Comparison March 14 XR FEMUR RT 2+ VIEWS Periprosthetic fracture of hip, subsequent encounter Impression: 1. Stable appearance of fracture morphology and transfixing hardware. Stable positioning and alignment. Finalized by Leonel Ferguson MD on 04/18/2024 5:45 PM Normal [facility] XR PELVIS 1 OR 2 VWSon [...] Ferguson MD on 04/18/2024 5:53 PM Normal [facility] XR FEMUR RT 2+ VIEWSon 03-15 [...] Ortega MD on 03/15/2024 6:12 PM Normal [facility] CBC AND AUTO DIFFon 03-06-20 ABSOLUTE BASOPHIL 0.1 X10E9/L Normal 0.0-0.2 [facility] Comment on above: Performed By: #### C BCA PINR, CMP #### [facility] ([id number]) [address] [place] [address] 52761 ABSOLUTE NEUTROPHIL 4.8 X10E9/L Normal 1.5-6.6 [facility] Comment on above: Performed By: #### C BCA, PINR, CMP #### [facility] ([id number]) [address] [place] [address] 13657 Basophils/100 WBC (Bld) 1.0 % Normal [facility] Comment on above: Performed By: #### C BCA, PINR, CMP #### [facility] ([id number]) [address] [place] [address] 69614 Eosinophils (Bld) [#/Vol] 0.0 10*3/uL Normal 0.0-0.4 [facility] Comment on above: Performed By: #### C BCA, PINR, CMP #### [facility] ([id number]) [address] [place] [address] 26794 Eosinophils/100 WBC (Bld) 0.4 % Normal [facility] Comment on above: Performed By: #### C BCA, PINR, CMP #### [facility] ([id number]) [address] [place] [address] 16225 Erythrocyte distribution width (RBC) [Ratio] 16.4 % High 11.5-15.0 [facility] Comment on above: Performed By: #### C LAUREN PINR, CMP #### [facility] ([id number]) [address] [place] [address] 77497 Hematocrit (Bld) [Volume fraction] 40.7 % Normal 39-49 [facility] Comment on above: Performed By: #### C BCA, PINR, CMP #### [facility] ([id number]) [address] [place] [address] 38108 Hemoglobin (Bld) [Mass/Vol] 13.3 g/dL Normal 13.0-17.0 [facility] Comment on above: Performed By: #### C BCA, PINR, CMP #### [facility] ([id number]) [address] [place] [address] 96061 Lymphocytes (Bld) [#/Vol] 1.4 10*3/uL Normal 1.0-3.5 [facility] Comment on above: Performed By: #### C BCA, PINR, CMP #### [facility] ([id number]) [address] [place] [address] 17474 Lymphocytes/100 WBC (Bld) 20.6 % Normal [facility] Comment on above: Performed By: #### C BCA, PINR, CMP #### [facility] ([id number]) [address] [place] [address] 26961 MCH (RBC) [Entitic mass] 28.2 pg Normal 27-34 [facility] Comment on above: Performed By: #### C KRISTI AGUILARR, CMP #### [facility] ([id number]) [address] [place] [address] 48581 MCHC (RBC) [Mass/Vol] 32.6 g/dL Normal 32-36 [facility] Comment on above: Performed By: #### C LAUREN PINR, CMP #### [facility] ([id number]) [address] [place] [address] 50314 MCV (RBC) [Entitic vol] 87 fL Normal 80-100 [facility] Comment on above: Performed By: #### C KRISTI AGUILARR, CMP #### [facility] ([id number]) [address] [place] [address] 25274 Monocytes (Bld) [#/Vol] 0.5 10*3/uL Normal 0-0.9 [facility] Comment on above: Performed By: #### C KRISTI AGUILARR, CMP #### [facility] ([id number]) [address] [place] [address] 60846 Monocytes/100 WBC (Bld) 7.2 % Normal [facility] Comment on above: Performed By: #### C LAUREN PINR, CMP #### [facility] ([id number]) [address] [place] [address] 81614 Neutrophils/100 WBC (Bld) 70.8 % Normal [facility] Comment on above: Performed By: #### Venu AGUILAR PINR, CMP #### [facility] ([id number]) [address] [place] [address] 95658 Platelet mean volume (Bld) [Entitic vol] 11.4 fL Normal 7-12 [facility] Comment on above: Performed By: #### C BCA, PINR, CMP #### [facility] ([id number]) [address] [place] [address] 96318 Platelets (Bld) [#/Vol] 122 10*3/uL Low 150-450 [facility] Comment on above: Performed By: #### C BCA, PINR, CMP #### [facility] ([id number]) [address] [place] [address] 05147 RBC COUNT 4.71 X10E12/L Normal 4.10-5.70 [facility] Comment on above: Performed By: #### C BCA, PINR, CMP #### [facility] ([id number]) [address] [place] [address] 11848 WBC (Bld) [#/Vol] 6.8 10*3/uL Normal 4.0-11.0 [facility] Comment on above: Performed By: #### C BCA, PINR, CMP #### [facility] ([id number]) [address] [place] [address] 91132 COMPREHENSIVE METABOLIC PANE Benito 03-06-2024 Albumin [Mass/Vol] 4.1 g/dL Normal 3.2-5.3 [facility] Comment on above: Performed By: #### C BCA, PINR, CMP #### [facility] ([id number]) [address] [place] [address] 41236 ALP [Catalytic activity/Vol] 75 U/L Normal 39-130 [facility] Comment on above: Performed By: #### C BCA, PINR, CMP #### [facility] ([id number]) [address] [place] [address] 23370 ALT [Catalytic activity/Vol] 6 U/L Normal 0-40 [facility] Comment on above: Performed By: #### C BCA, PINR, CMP #### [facility] ([id number]) [address] [place] [address] [place] [address] Anion gap [Moles/Vol] 9 mmol/L Normal 5-15 [facility] Comment on above: Performed By: #### C LAUREN PINR, CMP #### [facility] ([id number]) [address] [place] [address] 72549 AST [Catalytic activity/Vol] 17 U/L Normal 0-41 [facility] Comment on above: Performed By: #### C BCA PINR, CMP #### [facility] ([id number]) [address] [place] [address] 19845 Bilirubin [Mass/Vol] 0.4 mg/dL Normal 0.3-1.2 [facility] Comment on above: Performed By: #### C LAUREN PINR, CMP #### [facility] ([id number]) [address] [place] [address] 64561 Calcium [Mass/Vol] 9.1 mg/dL Normal 8.5-10.5 [facility] Comment on above: Performed By: #### C LAUREN PINR, CMP #### [facility] ([id number]) [address] [place] [address] 99953 Chloride [Moles/Vol] 103 mmol/L Normal 98-109 [facility] Comment on above: Performed By: #### C BCA, PINR, CMP #### [facility] ([id number]) [address] [place] [address] 57727 CO2 [Moles/Vol] 25 mmol/L Normal 22-32 [facility] Comment on above: Performed By: #### C BCA, PINR, CMP #### [facility] ([id number]) [address] [place] [address] 14361 Creatinine [Mass/Vol] 0.71 mg/dL Normal 0.70-1.20 [facility] Comment on above: Result Comment: METH OD TRACEABLE TO IDMS STANDARD Performed By: #### C LAUREN PINR, CMP #### [facility] ([id number]) [address] [place] [address] 79207 eGFR (CKD-EPI) NON-RACE DEPENDENT >90 Normal >59 [facility] Comment on above: Result Comment: Reported eGFR is based on the CKD-EPI 2020 equation that does not use a race coefficient. Performed By: #### C BCA PINR, CMP #### [facility] ([id number]) [address] [place] [address] 69245 Glucose [Mass/Vol] 170 mg/dL High 65-99 [facility] Comment on above: Performed By: #### C LAUREN PINR, CMP #### [facility] ([id number]) [address] [place] [address] 61493 Potassium [Moles/Vol] 3.8 mmol/L Normal 3.5-5.0 [facility] Comment on above: Performed By: #### C BCA PINR, CMP #### [facility] ([id number]) [address] [place] [address] 12003 Protein [Mass/Vol] 7.3 g/dL Normal 6.0-8.0 [facility] Comment on above: Performed By: #### C BCA PINR, CMP #### [facility] ([id number]) [address] [place] [address] 18756 Sodium [Moles/Vol] 137 mmol/L Normal 134-146 [facility] Comment on above: Performed By: #### C BCA, PINR, CMP #### [facility] ([id number]) [address] [place] [address] 75629 Urea nitrogen [Mass/Vol] 13 mg/dL Normal 5-23 [facility] Comment on above: Performed By: #### C BCA, PINR, CMP #### [facility] ([id number]) [address] [place] [address] 21135 PROTIME AND INRon 03-06-2024 INR Coag (PPP) [Relative time] 1.0 {INR} Normal 0.8-1.1 [facility] Comment on above: Performed By: #### C OSMEL AGUILAR, CMP #### [facility] ([id number]) [address] [place] [address] 60467 PT Coag (PPP) [Time] 12.2 s Normal 9.8-13.2 [facility] Comment on above: Result Comment: NEW REFERENCE RANGE Performed By: #### C OSMEL AGUILAR, CMP #### [facility] ([id number]) [address] [place] [address] 11194 XR FEMUR RT 2+ VIEWSon 02-22 XR FEMUR RT 2+ VIEWS XR FEMUR RT 2+ VIEW S Comparison February 08 XR FEMUR RT 2+ VIEWS Closed displaced intertrochanteric fracture of right femur with routine healing, subsequent encounter Impression: 1. Stable appearance of fracture morphology and transfixing hardware. Stable positioning and alignment. Finalized by Leonel Ferguson MD on 02/23/2024 12:36 PM Normal [facility] Glucose Glucometer (BldC) [M ass/Vol]on 02-09-2024 Glucose [Mass/Vol] 139 mg/dL High 65-99 [facility] Glucose [Mass/Vol] 112 mg/dL High 65-99 [facility] XR FEMUR RT 2+ VIEWSon 02-08 XR FEMUR RT 2+ VIEWS XR FEMUR RT 2+ VIEW S XR FEMUR RT 2+ VIEWS CLINICAL INFORMATION: Recent surgery for fracture. Pain. COMPARISON: 01/30/24. IMPRESSION: * Intramedullary nail stabilizing proximal femur fracture, anatomic alignment. Postoperative changes in the soft tissues. Finalized by Dionte Ocampo MD on 02/09/2024 10:30 AM Normal [facility] BASIC METABOLIC PANLon 02-07 Anion gap [Moles/Vol] 10 mmol/L Normal 5-15 [facility] Comment on above: Performed By: #### P INR, 24639-6, 4679-7, FEPR, 6793-4, 2132- 9, 2276-4, 2284-8, 2731-8, 19666-3 #### [facility] ([id number]) [address], [address] [place] [address] Calcium [Mass/Vol] 8.7 mg/dL Normal 8.5-10.5 [facility] Comment on above: Performed By: #### P INR, 63504-3, 4679-7, FEPR, 6793-4, 2132- 9, 2276-4, 2284-8, 2731-8, 68753-7 #### [facility] ([id number]) [address], [address] [place] [address] Chloride [Moles/Vol] 103 mmol/L Normal 98-109 [facility] Comment on above: Performed By: #### P INR, 28929-2, 4679-7, FEPR, 6793-4, 2132- 9, 2276-4, 2284-8, 2731-8, 88085-8 #### [facility] ([id number]) [address], [address] [place] [address] CO2 [Moles/Vol] 25 mmol/L Normal 22-32 [facility] Comment on above: Performed By: #### P INR, 92972-4, 4679-7, FEPR, 6793-4, 2132- 9, 2276-4, 2284-8, 2731-8, 22021-0 #### [facility] ([id number]) [address] [place] [address] Creatinine [Mass/Vol] 0.63 mg/dL Normal 0.60-1.30 [facility] Comment on above: Result Comment: METH OD TRACEABLE TO IDMS STANDARD Performed By: #### P INR, 97012-8, 4679-7, FEPR, 6793-4, 2132-9, 2276-4, 2284-8, 2731-8, 13337-2 #### [facility] ([id number]) [address], [address] [place] [address] eGFR (CKD-EPI) NON-RACE DEPENDENT >90 Normal >59 [facility] Comment on above: Result Comment: Reported eGFR is based on the CKD-EPI 2020 equation that does not use a race coefficient. Performed By: #### P INR, 32524-2, 4679-7, FEPR, 6793-4, 2132-9, 2276-4, 2284-8, 2731-8, 95293-6 #### [facility] ([id number]) [address] [place] [address] Glucose [Mass/Vol] 122 mg/dL High 65-99 [facility] Comment on above: Performed By: #### P INR, 69170-4, 4679-7, FEPR, 6793-4, 2132- 9, 2276-4, 2284-8, 2731-8, 86796-0 #### [facility] ([id number]) [address] [place] [address] Potassium [Moles/Vol] 3.8 mmol/L Normal 3.5-5.0 [facility] Comment on above: Performed By: #### P INR, 99966-2, 4679-7, FEPR, 6793-4, 2132- 9, 2276-4, 2284-8, 2731-8, 07489-1 #### [facility] ([id number]) [address], [address] [place] [address] Sodium [Moles/Vol] 138 mmol/L Normal 134-146 [facility] Comment on above: Performed By: #### P INR, 71793-7, 4679-7, FEPR, 6793-4, 2132- 9, 2276-4, 2284-8, 2731-8, 72704-2 #### [facility] ([id number]) [address], [address] [place] [address] Urea nitrogen [Mass/Vol] 5 mg/dL Normal 5-23 [facility] Comment on above: Performed By: #### P INR, 67580-4, 4679-7, FEPR, 6793-4, 2132- 9, 2276-4, 2284-8, 2731-8, 32598-8 #### [facility] ([id number]) [address], [address] [place] [address] COMPLETE BLOOD COUNTon 02-07 Erythrocyte distribution width (RBC) [Ratio] 16.1 % High 11.5-15.0 [facility] Comment on above: Performed By: #### P INR, 55484-2, 4679-7, FEPR, 6793-4, 2132- 9, 2276-4, 2284-8, 2731-8, 80875-8 #### [facility] ([id number]) [address], [address] [place] [address] Hematocrit (Bld) [Volume fraction] 26.6 % Low 39-49 [facility] Comment on above: Performed By: #### P INR, 21570-9, 4679-7, FEPR, 6793-4, 2132- 9, 2276-4, 2284-8, 2731-8, 09214-6 #### [facility] ([id number]) [address], [address] [place] [address] Hemoglobin (Bld) [Mass/Vol] 8.9 g/dL Low 13.0-17.0 [facility] Comment on above: Performed By: #### P INR, 47686-7, 4679-7, FEPR, 6793-4, 2132- 9, 2276-4, 2284-8, 2731-8, 75515-6 #### [facility] ([id number]) [address], [address] [place] [address] MCH (RBC) [Entitic mass] 28.6 pg Normal 27-34 [facility] Comment on above: Performed By: #### P INR, 23989-5, 4679-7, FEPR, 6793-4, 2132- 9, 2276-4, 2284-8, 2731-8, 69272-0 #### [facility] ([id number]) [address], [address] [place] [address] MCHC (RBC) [Mass/Vol] 33.3 g/dL Normal 32-36 [facility] Comment on above: Performed By: #### P INR, 94296-2, 4679-7, FEPR, 6793-4, 2132- 9, 2276-4, 2284-8, 2731-8, 50794-5 #### [facility] ([id number]) [address], [address] [place] [address] MCV (RBC) [Entitic vol] 86 fL Normal 80-100 [facility] Comment on above: Performed By: #### P INR, 64990-1, 4679-7, FEPR, 6793-4, 2132- 9, 2276-4, 2284-8, 2731-8, 61088-7 #### [facility] ([id number]) [address], [address] [place] [address] Platelet mean volume (Bld) [Entitic vol] 9.4 fL Normal 7-12 [facility] Comment on above: Performed By: #### P INR, 85034-4, 4679-7, FEPR, 6793-4, 2132- 9, 2276-4, 2284-8, 2731-8, 48494-8 #### [facility] ([id number]) [address], [address] [place] [address] Platelets (Bld) [#/Vol] 202 10*3/uL Normal 150-450 [facility] Comment on above: Performed By: #### P INR, 45857-1, 4679-7, FEPR, 6793-4, 2132- 9, 2276-4, 2284-8, 2731-8, 00844-0 #### [facility] ([id number]) [address], [address] [place] [address] RBC COUNT 3.10 X10E12/L Low 4.10-5.70 [facility] Comment on above: Performed By: #### P INR, 46461-8, 4679-7, FEPR, 6793-4, 2132- 9, 2276-4, 2284-8, 2731-8, 32515-7 #### [facility] ([id number]) [address], [address] [place] [address] WBC (Bld) [#/Vol] 3.8 10*3/uL Low 4.0-11.0 [facility] Comment on above: Performed By: #### P INR, 18381-8, 4679-7, FEPR, 6793-4, 2132- 9, 2276-4, 2284-8, 2731-8, 63021-0 #### [facility] ([id number]) [address], [address] [place] [address] Glucose Glucometer (BldC) [M ass/Vol]on 02-08-2024 Glucose [Mass/Vol] 117 mg/dL High 65-99 [facility] Glucose [Mass/Vol] 121 mg/dL High 65- [facility] Glucose [Mass/Vol] 137 mg/dL High 65-99 [facility] Glucose [Mass/Vol] 134 mg/dL High 65-99 [facility] Glucose Glucometer (BldC) [M ass/Vol]on 02-07-2024 Glucose [Mass/Vol] 144 mg/dL High 65-99 [facility] Glucose [Mass/Vol] 154 mg/dL High 65-99 [facility] Glucose [Mass/Vol] 121 mg/dL High 65-99 [facility] Glucose [Mass/Vol] 176 mg/dL High 65-99 [facility] Glucose Glucometer (BldC) [M ass/Vol]on 02-06-2024 Glucose [Mass/Vol] 116 mg/dL High 65-99 [facility] Glucose [Mass/Vol] 100 mg/dL High 65-99 [facility] Glucose [Mass/Vol] 112 mg/dL High 65-99 [facility] Glucose [Mass/Vol] 118 mg/dL High 65-99 [facility] BASIC METABOLIC PANLon 02-04 Anion gap [Moles/Vol] 8 mmol/L Normal 5-15 [facility] Comment on above: Performed By: #### P INR, 38836-2, 4679-7, FEPR, 6793-4, 2132- 9, 2276-4, 2284-8, 2731-8, 64003-7 #### [facility] ([id number]) [address], [address] [place] [address] Calcium [Mass/Vol] 8.5 mg/dL Normal 8.5-10.5 [facility] Comment on above: Performed By: #### P INR, 43515-0, 4679-7, FEPR, 6793-4, 2132- 9, 2276-4, 2284-8, 2731-8, 29772-4 #### [facility] ([id number]) [address], [address] [place] [address] Chloride [Moles/Vol] 101 mmol/L Normal 98-109 [facility] Comment on above: Performed By: #### P INR, 28170-9, 4679-7, FEPR, 6793-4, 2132- 9, 2276-4, 2284-8, 2731-8, 87313-0 #### [facility] ([id number]) [address], [address] [place] [address] CO2 [Moles/Vol] 28 mmol/L Normal 22-32 [facility] Comment on above: Performed By: #### P INR, 21781-4, 4679-7, FEPR, 6793-4, 2132- 9, 2276-4, 2284-8, 2731-8, 44271-5 #### [facility] ([id number]) [address], [address] [place] [address] Creatinine [Mass/Vol] 0.60 mg/dL Normal 0.60-1.30 [facility] Comment on above: Result Comment: METH OD TRACEABLE TO IDMS STANDARD Performed By: #### P INR, 76224-7, 4679-7, FEPR, 6793-4, 2132-9, 2276-4, 2284-8, 2731-8, 49372-0 #### [facility] ([id number]) [address], [address] [place] [address] eGFR (CKD-EPI) NON-RACE DEPENDENT >90 Normal >59 [facility] Comment on above: Result Comment: Reported eGFR is based on the CKD-EPI 2020 equation that does not use a race coefficient. Performed By: #### P INR, 57897-5, 4679-7, FEPR, 6793-4, 2132-9, 2276-4, 2284-8, 2731-8, 62285-6 #### [facility] ([id number]) [address], [address] [place] [address] Glucose [Mass/Vol] 130 mg/dL High 65-99 [facility] Comment on above: Performed By: #### P INR, 26691-7, 4679-7, FEPR, 6793-4, 2132- 9, 2276-4, 2284-8, 2731-8, 50138-4 #### [facility] ([id number]) [address], [address] [place] [address] Potassium [Moles/Vol] 3.5 mmol/L Normal 3.5-5.0 [facility] Comment on above: Performed By: #### P INR, 76819-4, 4679-7, FEPR, 6793-4, 2132- 9, 2276-4, 2284-8, 2731-8, 20095-9 #### [facility] ([id number]) [address], [address] [place] [address] Sodium [Moles/Vol] 137 mmol/L Normal 134-146 [facility] Comment on above: Performed By: #### P INR, 35576-0, 4679-7, FEPR, 6793-4, 2132- 9, 2276-4, 2284-8, 2731-8, 67343-7 #### [facility] ([id number]) [address], [address] [place] [address] Urea nitrogen [Mass/Vol] 6 mg/dL Normal 5-23 [facility] Comment on above: Performed By: #### P INR, 06082-2, 4679-7, FEPR, 6793-4, 2132- 9, 2276-4, 2284-8, 2731-8, 09489-1 #### [facility] ([id number]) [address], [address] [place] [address] COMPLETE BLOOD COUNTon 02-04 Erythrocyte distribution width (RBC) [Ratio] 15.9 % High 11.5-15.0 [facility] Comment on above: Performed By: #### P INR, 01771-5, 4679-7, FEPR, 6793-4, 2132- 9, 2276-4, 2284-8, 2731-8, 96885-7 #### [facility] ([id number]) [address], [address] [place] [address] Hematocrit (Bld) [Volume fraction] 27.6 % Low 39-49 [facility] Comment on above: Performed By: #### P INR, 81247-9, 4679-7, FEPR, 6793-4, 2132- 9, 2276-4, 2284-8, 2731-8, 23742-8 #### [facility] ([id number]) [address], [address] [place] [address] Hemoglobin (Bld) [Mass/Vol] 9.2 g/dL Low 13.0-17.0 [facility] Comment on above: Performed By: #### P INR, 50389-9, 4679-7, FEPR, 6793-4, 2132- 9, 2276-4, 2284-8, 2731-8, 76363-7 #### [facility] ([id number]) [address], [address] [place] [address] MCH (RBC) [Entitic mass] 28.5 pg Normal 27-34 [facility] Comment on above: Performed By: #### P INR, 65622-9, 4679-7, FEPR, 6793-4, 2132- 9, 2276-4, 2284-8, 2731-8, 92715-7 #### [facility] ([id number]) [address], [address] [place] [address] MCHC (RBC) [Mass/Vol] 33.5 g/dL Normal 32-36 [facility] Comment on above: Performed By: #### P INR, 42853-5, 4679-7, FEPR, 6793-4, 2132- 9, 2276-4, 2284-8, 2731-8, 80638-0 #### [facility] ([id number]) [address], [address] [place] [address] MCV (RBC) [Entitic vol] 85 fL Normal 80-100 [facility] Comment on above: Performed By: #### P INR, 81419-2, 4679-7, FEPR, 6793-4, 2132- 9, 2276-4, 2284-8, 2731-8, 83606-8 #### [facility] ([id number]) [address], [address] [place] [address] Platelet mean volume (Bld) [Entitic vol] 9.5 fL Normal 7-12 [facility] Comment on above: Performed By: #### P INR, 16027-3, 4679-7, FEPR, 6793-4, 2132- 9, 2276-4, 2284-8, 2731-8, 42568-5 #### [facility] ([id number]) [address], [address] [place] [address] Platelets (Bld) [#/Vol] 215 10*3/uL Normal 150-450 [facility] Comment on above: Performed By: #### P INR, 93210-9, 4679-7, FEPR, 6793-4, 2132- 9, 2276-4, 2284-8, 2731-8, 25718-5 #### [facility] ([id number]) [address], [address] [place] [address] RBC COUNT 3.25 X10E12/L Low 4.10-5.70 [facility] Comment on above: Performed By: #### P INR, 95655-7, 4679-7, FEPR, 6793-4, 2132- 9, 2276-4, 2284-8, 2731-8, 46882-4 #### [facility] ([id number]) [address], [address] [place] [address] WBC (Bld) [#/Vol] 4.9 10*3/uL Normal 4.0-11.0 [facility] Comment on above: Performed By: #### P INR, 02813-4, 4679-7, FEPR, 6793-4, 2132- 9, 2276-4, 2284-8, 2731-8, 65313-1 #### [facility] ([id number]) [address], [address] [place] [address] Glucose Glucometer (BldC) [M ass/Vol]on 02-05-2024 Glucose [Mass/Vol] 95 mg/dL Normal 65-99 [facility] Glucose [Mass/Vol] 102 mg/dL High 65-99 [facility] Glucose [Mass/Vol] 143 mg/dL High 65-99 [facility] Glucose [Mass/Vol] 156 mg/dL High 65-99 [facility] COMPLETE BLOOD COUNTon 02-03 Erythrocyte distribution width (RBC) [Ratio] 15.8 % High 11.5-15.0 [facility] Comment on above: Performed By: #### P INR, 15210-0, 4679-7, FEPR, 6793-4, 2132- 9, 2276-4, 2284-8, 2731-8, 59553-0 #### [facility] ([id number]) [address], [address] [place] [address] Hematocrit (Bld) [Volume fraction] 31.7 % Low 39-49 [facility] Comment on above: Performed By: #### P INR, 31249-4, 4679-7, FEPR, 6793-4, 2132- 9, 2276-4, 2284-8, 2731-8, 66438-3 #### [facility] ([id number]) [address], [address] [place] [address] Hemoglobin (Bld) [Mass/Vol] 10.6 g/dL Low 13.0-17.0 [facility] Comment on above: Performed By: #### P INR, 36162-5, 4679-7, FEPR, 6793-4, 2132- 9, 2276-4, 2284-8, 2731-8, 46407-5 #### [facility] ([id number]) [address], [address] [place] [address] MCH (RBC) [Entitic mass] 28.2 pg Normal 27-34 [facility] Comment on above: Performed By: #### P INR, 30159-0, 4679-7, FEPR, 6793-4, 2132- 9, 2276-4, 2284-8, 2731-8, 22536-1 #### [facility] ([id number]) [address], [address] [place] [address] MCHC (RBC) [Mass/Vol] 33.4 g/dL Normal 32-36 [facility] Comment on above: Performed By: #### P INR, 57200-6, 4679-7, FEPR, 6793-4, 2132- 9, 2276-4, 2284-8, 2731-8, 61446-0 #### [facility] ([id number]) [address], [address] [place] [address] MCV (RBC) [Entitic vol] 85 fL Normal 80-100 [facility] Comment on above: Performed By: #### P INR, 88170-3, 4679-7, FEPR, 6793-4, 2132- 9, 2276-4, 2284-8, 2731-8, 20915-4 #### [facility] ([id number]) [address], [address] [place] [address] Platelet mean volume (Bld) [Entitic vol] 9.6 fL Normal 7-12 [facility] Comment on above: Performed By: #### P INR, 25201-8, 4679-7, FEPR, 6793-4, 2132- 9, 2276-4, 2284-8, 2731-8, 07532-2 #### [facility] ([id number]) [address], [address] [place] [address] Platelets (Bld) [#/Vol] 314 10*3/uL Normal 150-450 [facility] Comment on above: Performed By: #### P INR, 54809-9, 4679-7, FEPR, 6793-4, 2132- 9, 2276-4, 2284-8, 2731-8, 86442-8 #### [facility] ([id number]) [address], [address] [place] [address] RBC COUNT 3.74 X10E12/L Low 4.10-5.70 [facility] Comment on above: Performed By: #### P INR, 70111-7, 4679-7, FEPR, 6793-4, 2132- 9, 2276-4, 2284-8, 2731-8, 47995-3 #### [facility] ([id number]) [address], [address] [place] [address] WBC (Bld) [#/Vol] 6.6 10*3/uL Normal 4.0-11.0 [facility] Comment on above: Performed By: #### P INR, 13156-2, 4679-7, FEPR, 6793-4, 2132- 9, 2276-4, 2284-8, 2731-8, 53098-6 #### [facility] ([id number]) [address], [address] [place] [address] COMPREHENSIVE METABOLIC PANE [facility] 02-04-2024 Albumin [Mass/Vol] 3.4 g/dL Normal 3.2-5.3 [facility] Comment on above: Performed By: #### P INR, 70754-7, 4679-7, FEPR, 6793-4, 2132- 9, 2276-4, 2284-8, 2731-8, 60179-9 #### [facility] ([id number]) [address], [address] [place] [address] ALP [Catalytic activity/Vol] 88 U/L Normal 39-130 [facility] Comment on above: Performed By: #### P INR, 40850-0, 4679-7, FEPR, 6793-4, 2132- 9, 2276-4, 2284-8, 2731-8, 74209-2 #### [facility] ([id number]) [address], [address] [place] [address] ALT [Catalytic activity/Vol] 11 U/L Normal 0-40 [facility] Comment on above: Performed By: #### P INR, 84452-6, 4679-7, FEPR, 6793-4, 2132- 9, 2276-4, 2284-8, 2731-8, 56028-7 #### [facility] ([id number]) [address], [address] [place] [address] Anion gap [Moles/Vol] 12 mmol/L Normal 5-15 [facility] Comment on above: Performed By: #### P INR, 93943-3, 4679-7, FEPR, 6793-4, 2132- 9, 2276-4, 2284-8, 2731-8, 17402-2 #### [facility] ([id number]) [address], [address] [place] [address] AST [Catalytic activity/Vol] 17 U/L Normal 0-41 [facility] Comment on above: Performed By: #### P INR, 10745-6, 4679-7, FEPR, 6793-4, 2132- 9, 2276-4, 2284-8, 2731-8, 83255-6 #### [facility] ([id number]) [address], [address] [place] [address] Bilirubin [Mass/Vol] 1.5 mg/dL High 0.3-1.2 [facility] Comment on above: Performed By: #### P INR, 81871-4, 4679-7, FEPR, 6793-4, 2132- 9, 2276-4, 2284-8, 2731-8, 82489-9 #### [facility] ([id number]) [address], [address] [place] [address] Calcium [Mass/Vol] 9.1 mg/dL Normal 8.5-10.5 [facility] Comment on above: Performed By: #### P INR, 54957-3, 4679-7, FEPR, 6793-4, 2132- 9, 2276-4, 2284-8, 2731-8, 92043-6 #### [facility] ([id number]) [address], [address] [place] [address] Chloride [Moles/Vol] 98 mmol/L Normal 98-109 [facility] Comment on above: Performed By: #### P INR, 04430-6, 4679-7, FEPR, 6793-4, 2132- 9, 2276-4, 2284-8, 2731-8, 36122-8 #### [facility] ([id number]) [address], [address] [place] [address] CO2 [Moles/Vol] 27 mmol/L Normal 22-32 [facility] Comment on above: Performed By: #### P INR, 27505-9, 4679-7, FEPR, 6793-4, 2132- 9, 2276-4, 2284-8, 2731-8, 97742-8 #### [facility] ([id number]) [address], [address] [place] [address] Creatinine [Mass/Vol] 0.65 mg/dL Normal 0.60-1.30 [facility] Comment on above: Result Comment: METH OD TRACEABLE TO IDMS STANDARD Performed By: #### P INR, 27722-2, 4679-7, FEPR, 6793-4, 2132-9, 2276-4, 2284-8, 2731-8, 16420-3 #### [facility] ([id number]) [address], [address] [place] [address] eGFR (CKD-EPI) NON-RACE DEPENDENT >90 Normal >59 [facility] Comment on above: Result Comment: Reported eGFR is based on the CKD-EPI 2020 equation that does not use a race coefficient. Performed By: #### P INR, 78315-6, 4679-7, FEPR, 6793-4, 2132-9, 2276-4, 2284-8, 2731-8, 47034-2 #### [facility] ([id number]) [address], [address] [place] [address] Glucose [Mass/Vol] 151 mg/dL High 65-99 [facility] Comment on above: Performed By: #### P INR, 01452-8, 4679-7, FEPR, 6793-4, 2132- 9, 2276-4, 2284-8, 2731-8, 71027-2 #### [facility] ([id number]) [address], [address] [place] [address] Potassium [Moles/Vol] 3.6 mmol/L Normal 3.5-5.0 [facility] Comment on above: Performed By: #### P INR, 64645-8, 4679-7, FEPR, 6793-4, 2132- 9, 2276-4, 2284-8, 2731-8, 07701-6 #### [facility] ([id number]) [address], [address] [place] [address] Protein [Mass/Vol] 6.5 g/dL Normal 6.0-8.0 [facility] Comment on above: Performed By: #### P INR, 45541-2, 4679-7, FEPR, 6793-4, 2132- 9, 2276-4, 2284-8, 2731-8, 20253-5 #### [facility] ([id number]) [address], [address] [place] [address] Sodium [Moles/Vol] 137 mmol/L Normal 134-146 [facility] Comment on above: Performed By: #### P INR, 81199-2, 4679-7, FEPR, 6793-4, 2132- 9, 2276-4, 2284-8, 2731-8, 66119-0 #### [facility] ([id number]) [address], [address] [place] [address] Urea nitrogen [Mass/Vol] 10 mg/dL Normal - [facility] Comment on above: Performed By: #### P INR, 93097-1, 4679-7, FEPR, 6793-4, 2132- 9, 2276-4, 2284-8, 2731-8, 32908-1 #### [facility] ([id number]) [address], [address] [place] [address] Glucose Glucometer (BldC) [M ass/Vol]on 02-04-2024 Glucose [Mass/Vol] 104 mg/dL High 65-99 [facility] Glucose [Mass/Vol] 240 mg/dL High 65-99 [facility] Glucose [Mass/Vol] 157 mg/dL High 65-99 [facility] Glucose [Mass/Vol] 163 mg/dL High 65-99 [facility] Lipid 1996 panelon Cholesterol [Mass/Vol] 148 mg/dL Low 150-200 [facility] Comment on above: Performed By: #### P INR, 16497-9, 4679-7, FEPR, 6793-4, 2132- 9, 2276-4, 2284-8, 2731-8, 96437-5 #### [facility] ([id number]) [address], [address] [place] [address] Cholesterol in HDL [Mass/Vol] 19 mg/dL Low >39 [facility] Comment on above: Result Comment: HDL <40 mg/dL - High Risk HDL > or = 40mg/dL- Desirable HDL >60 mg/dL - Negative Risk Performed By: #### P INR, 81919-0, 4679-7, FEPR, 6793-4, 2132-9, 2276-4, 2284-8, 2731-8, 37257-9 #### [facility] ([id number]) [address], [address] [place] [address] Cholesterol in LDL [Mass/Vol] 80 mg/dL Normal <130 [facility] Comment on above: Result Comment: LDL <100 mg/dL - Desirable LDL >160 mg/dL - High Risk Performed By: #### P INR, 79442-3, 4679-7, FEPR, 6793-4, 2132-9, 2276-4, 2284-8, 2731-8, 71958-5 #### [facility] ([id number]) [address], [address] [place] [address] Cholesterol in VLDL [Mass/Vol] 49 mg/dL High 0-30 [facility] Comment on above: Performed By: #### P INR, 10216-4, 4679-7, FEPR, 6793-4, 2132- 9, 2276-4, 2284-8, 2731-8, 36127-7 #### [facility] ([id number]) [address], [address] [place] [address] CHOLESTEROL:HDL 7.8 High 1.0-5.0 [facility] Comment on above: Performed By: #### P INR, 77696-8, 4679-7, FEPR, 6793-4, 2132- 9, 2276-4, 2284-8, 2731-8, 60960-0 #### [facility] ([id number]) [address], [address] [place] [address] Triglyceride [Mass/Vol] 244 mg/dL High 27-150 [facility] Comment on above: Performed By: #### P INR, 70528-0, 4679-7, FEPR, 6793-4, 2132- 9, 2276-4, 2284-8, 2731-8, 33780-7 #### [facility] ([id number]) [address] [place] [address] MAGNESIUMon 02-04-2024 Magnesium [Mass/Vol] 1.5 mg/dL Low 1.8-2.6 [facility] Comment on above: Performed By: #### P INR, 64404-5, 4679-7, FEPR, 6793-4, 2132- 9, 2276-4, 2284-8, 2731-8, 29447-3 #### [facility] ([id number]) [address], [address] [place] [address] BASIC METABOLIC PANLon 02-02 Anion gap [Moles/Vol] 10 mmol/L Normal 5-15 [facility] Comment on above: Performed By: #### P INR, 44170-5, 4679-7, FEPR, 6793-4, 2132- 9, 2276-4, 2284-8, 2731-8, 06357-0 #### [facility] ([id number]) [address], [address] [place] [address] Calcium [Mass/Vol] 8.8 mg/dL Normal 8.5-10.5 [facility] Comment on above: Performed By: #### P INR, 72570-7, 4679-7, FEPR, 6793-4, 2132- 9, 2276-4, 2284-8, 2731-8, 20142-0 #### [facility] ([id number]) [address] [place] [address] Chloride [Moles/Vol] 98 mmol/L Normal 98-109 [facility] Comment on above: Performed By: #### P INR, 87816-0, 4679-7, FEPR, 6793-4, 2132- 9, 2276-4, 2284-8, 2731-8, 82895-5 #### [facility] ([id number]) [address] [place] [address] CO2 [Moles/Vol] 26 mmol/L Normal 22-32 [facility] Comment on above: Performed By: #### P INR, 03331-9, 4679-7, FEPR, 6793-4, 2132- 9, 2276-4, 2284-8, 2731-8, 66193-9 #### [facility] ([id number]) [address] [place] [address] Creatinine [Mass/Vol] 0.59 mg/dL Low 0.60-1.30 [facility] Comment on above: Result Comment: METH OD TRACEABLE TO IDMS STANDARD Performed By: #### P INR, 12772-4, 4679-7, FEPR, 6793-4, 2-9, 2276-4, 2284-8, 2731-8, 38897-9 #### [facility] ([id number]) [facility] [place] [address] eGFR (CKD-EPI) NON-RACE DEPENDENT >90 Normal >59 [facility] Comment on above: Result Comment: Reported eGFR is based on the CKD-EPI 2020 equation that does not use a race coefficient. Performed By: #### P INR, 79561-2, 4679-7, FEPR, 6793-4, 2132-9, 2276-4, 2284-8, 2731-8, 25422-1 #### [facility] ([id number]) [address], [address] [place] [address] Glucose [Mass/Vol] 156 mg/dL High 65-99 [facility] Comment on above: Performed By: #### P INR, 93614-2, 4679-7, FEPR, 6793-4, 2132- 9, 2276-4, 2284-8, 2731-8, 37735-9 #### [facility] ([id number]) [address], [address] [place] [address] Potassium [Moles/Vol] 3.7 mmol/L Normal 3.5-5.0 [facility] Comment on above: Performed By: #### P INR, 48340-9, 4679-7, FEPR, 6793-4, 2132- 9, 2276-4, 2284-8, 2731-8, 25124-1 #### [facility] ([id number]) [address], [address] [place] [address] Sodium [Moles/Vol] 134 mmol/L Normal 134-146 [facility] Comment on above: Performed By: #### P INR, 01655-1, 4679-7, FEPR, 6793-4, 2132- 9, 2276-4, 2284-8, 2731-8, 75882-3 #### [facility] ([id number]) [address], [address] [place] [address] Urea nitrogen [Mass/Vol] 11 mg/dL Normal 5-23 [facility] Comment on above: Performed By: #### P INR, 83035-0, 4679-7, FEPR, 6793-4, 2132- 9, 2276-4, 2284-8, 2731-8, 43025-5 #### [facility] ([id number]) [address], [address] [place] [address] Basic Metabolic Panelon 06-2 -2023 Anion gap [Moles/Vol] 10 mmol/L 5 - 15 mmol/L [facility] Calcium [Mass/Vol] 8.8 mg/dL 8.5 - 10. 5 mg/dL [facility] Chloride [Moles/Vol] 98 mmol/L 98 - 10 9 mmol/L [facility] CO2 [Moles/Vol] 26 mmol/L 22 - 32 mmol/L [facility] Creatinine [Mass/Vol] 0.59 mg/dL Low 0.60 - 1.30 mg/dL [facility] Comment on above: METHOD TRACEABLE TO IDIN STANDARD eGFR (CKD-EPI)non-race dependent - PINF [facility] Comment on above: Reported eGFR is based on the CKD-EPI 2020 equation that does not use a race coefficient. Glucose [Mass/Vol] 156 mg/dL High 65 - 99 mg/dL [facility] Interpretation and review of laboratory results Abnormal [facility] Potassium [Moles/Vol] 3.7 mmol/L 3.5 - 5.0 mmol/L [facility] Sodium [Moles/Vol] 134 mmol/L 134 - 146 mmol/L [facility] Urea nitrogen [Mass/Vol] 11 mg/dL 5 - 23 mg/dL [facility] CBC AND AUTO DIFFon 02-03-20 24 ABSOLUTE BASOPHIL 0.1 X10E9/L Normal 0.0-0.2 [facility] Comment on above: Performed By: #### P INR, 63377-0, 4679-7, FEPR, 6793-4, 2132- 9, 2276-4, 2284-8, 2731-8, 41823-6 #### [facility] ([id number]) [address], [address] [place] [address] ABSOLUTE NEUTROPHIL 4.5 X10E9/L Normal 1.5-6.6 [facility] Comment on above: Performed By: #### P INR, 64814-6, 4679-7, FEPR, 6793-4, 2132- 9, 2276-4, 2284-8, 2731-8, 22418-1 #### [facility] ([id number]) [address], [address] [place] [address] Basophils/100 WBC (Bld) 0.9 % Normal [facility] Comment on above: Performed By: #### P INR, 15777-6, 4679-7, FEPR, 6793-4, 2132- 9, 2276-4, 2284-8, 2731-8, 70981-2 #### [facility] ([id number]) [address], [address] [place] [address] Eosinophils (Bld) [#/Vol] 0.1 10*3/uL Normal 0.0-0.4 [facility] Comment on above: Performed By: #### P INR, 56961-3, 4679-7, FEPR, 6793-4, 2132- 9, 2276-4, 2284-8, 2731-8, 17592-0 #### [facility] [facility] ([id number]) [address], [address] [place] [address] Eosinophils/100 WBC (Bld) 0.8 % Normal [facility] Comment on above: Performed By: #### P INR, 93168-4, 4679-7, FEPR, 6793-4, 2132- 9, 2276-4, 2284-8, 2731-8, 63156-0 #### [facility] ([id number]) [address], [address] [place] [address] Erythrocyte distribution width (RBC) [Ratio] 15.8 % High 11.5-15.0 [facility] Comment on above: Performed By: #### P INR, 53339-7, 4679-7, FEPR, 6793-4, 2132- 9, 2276-4, 2284-8, 2731-8, 64598-5 #### [facility] ([id number]) [address], [address] [place] [address] Hematocrit (Bld) [Volume fraction] 29.1 % Low 39-49 [facility] Comment on above: Performed By: #### P INR, 19788-3, 4679-7, FEPR, 6793-4, 2132- 9, 2276-4, 2284-8, 2731-8, 47625-9 #### [facility] ([id number]) [address], [address] [place] [address] Hemoglobin (Bld) [Mass/Vol] 9.9 g/dL Low 13.0-17.0 [facility] Comment on above: Performed By: #### P INR, 41585-7, 4679-7, FEPR, 6793-4, 2132- 9, 2276-4, 2284-8, 2731-8, 17367-5 #### [facility] ([id number]) [address], [address] [place] [address] Lymphocytes (Bld) [#/Vol] 1.2 10*3/uL Normal 1.0-3.5 [facility] Comment on above: Performed By: #### P INR, 51451-9, 4679-7, FEPR, 6793-4, 2132- 9, 2276-4, 2284-8, 2731-8, 97141-2 #### [facility] ([id number]) [address], [address] [place] [address] Lymphocytes/100 WBC (Bld) 18.3 % Normal [facility] Comment on above: Performed By: #### P INR, 48925-6, 4679-7, FEPR, 6793-4, 2132- 9, 2276-4, 2284-8, 2731-8, 46118-7 #### [facility] ([id number]) [address], [address] [place] [address] MCH (RBC) [Entitic mass] 28.5 pg Normal 27-34 [facility] Comment on above: Performed By: #### P INR, 99763-1, 4679-7, FEPR, 6793-4, 2132- 9, 2276-4, 2284-8, 2731-8, 46867-0 #### [facility] ([id number]) [address], [address] [place] [address] MCHC (RBC) [Mass/Vol] 33.9 g/dL Normal 32-36 [facility] Comment on above: Performed By: #### P INR, 26382-9, 4679-7, FEPR, 6793-4, 2132- 9, 2276-4, 2284-8, 2731-8, 89841-1 #### [facility] ([id number]) [address], [address] [place] [address] MCV (RBC) [Entitic vol] 84 fL Normal 80-100 [facility] Comment on above: Performed By: #### P INR, 89896-0, 4679-7, FEPR, 6793-4, 2132- 9, 2276-4, 2284-8, 2731-8, 43812-5 #### [facility] ([id number]) [address], [address] [place] [address] Monocytes (Bld) [#/Vol] 0.7 10*3/uL Normal 0-0.9 [facility] Comment on above: Performed By: #### P INR, 21169-6, 4679-7, FEPR, 6793-4, 2132- 9, 2276-4, 2284-8, 2731-8, 76724-1 #### [facility] ([id number]) [address], [address] [place] [address] Monocytes/100 WBC (Bld) 10.2 % Normal [facility] Comment on above: Performed By: #### P INR, 13566-4, 4679-7, FEPR, 6793-4, 2132- 9, 2276-4, 2284-8, 2731-8, 19375-6 #### [facility] ([id number]) [address], [address] [place] [address] Neutrophils/100 WBC (Bld) 69.8 % Normal [facility] Comment on above: Performed By: #### P INR, 90071-3, 4679-7, FEPR, 6793-4, 2132- 9, 2276-4, 2284-8, 2731-8, 98531-4 #### [facility] ([id number]) [address], [address] [place] [address] Platelet mean volume (Bld) [Entitic vol] 9.8 fL Normal 7-12 [facility] Comment on above: Performed By: #### P INR, 50334-6, 4679-7, FEPR, 6793-4, 2132- 9, 2276-4, 2284-8, 2731-8, 99783-2 #### [facility] ([id number]) [address], [address] [place] [address] Platelets (Bld) [#/Vol] 238 10*3/uL Normal 150-450 [facility] Comment on above: Performed By: #### P INR, 69661-1, 4679-7, FEPR, 6793-4, 2132- 9, 2276-4, 2284-8, 2731-8, 00789-2 #### [facility] ([id number]) [address], [address] [place] [address] RBC COUNT 3.46 X10E12/L Low 4.10-5.70 [facility] Comment on above: Performed By: #### P INR, 50102-5, 4679-7, FEPR, 6793-4, 2132- 9, 2276-4, 2284-8, 2731-8, 30212-1 #### [facility] ([id number]) [address], [address] [place] [address] WBC (Bld) [#/Vol] 6.4 10*3/uL Normal 4.0-11.0 [facility] Comment on above: Performed By: #### P INR, 73928-1, 4679-7, FEPR, 6793-4, 2132- 9, 2276-4, 2284-8, 2731-8, 92279-9 #### [facility] ([id number]) [address], [address] [place] [address] CBC auto differentialon 01-13 Basophils (Bld) [#/Vol] 0.1 10*3/uL [facility] Basophils/100 WBC (Bld) 0.9 % [facility] Eosinophils (Bld) [#/Vol] 0.1 10*3/uL [facility] Eosinophils/100 WBC (Bld) 0.8 % [facility] Erythrocyte distribution width (RBC) [Ratio] 15.8 % High 11.5 - 15.0 % [facility] Hematocrit (Bld) [Volume fraction] 29.1 % Low 39 - 49 % [facility] Hemoglobin (Bld) [Mass/Vol] 9.9 g/dL Low 13.0 - 17.0 g/dL [facility] Interpretation and review of laboratory results Abnormal [facility] Lymphocytes (Bld) [#/Vol] 1.2 10*3/uL [facility] Lymphocytes/100 WBC (Bld) 18.3 % [facility] MCH (RBC) [Entitic mass] 28.5 pg 27 - 34 pg [facility] MCHC (RBC) [Mass/Vol] 33.9 g/dL 32 - 3 6 g/dL [facility] MCV (RBC) [Entitic vol] 84 fL 80 - 100 fL [facility] Monocytes (Bld) [#/Vol] 0.7 10*3/uL [facility] Monocytes/100 WBC (Bld) 10.2 % [facility] Neutrophils (Bld) [#/Vol] 4.5 10*3/uL [facility] Neutrophils/100 WBC (Bld) 69.8 % [facility] Platelet mean volume (Bld) [Entitic vol] 9.8 fL 7 - 12 fL [facility] Platelets (Bld) [#/Vol] 238 10*3/uL [facility] RBC (Bld) [#/Vol] 3.46 10*6/uL Low [facility] dica [facility] WBC corrected for nucl RBC Auto (Bld) [#/Vol] 6.4 [facility] Glucose Glucometer (BldC) [M ass/Vol]on 02-03-2024 Glucose [Mass/Vol] 137 mg/dL High 65-99 [facility] Glucose [Mass/Vol] 133 mg/dL High 65-99 [facility] Glucose [Mass/Vol] 168 mg/dL High 65 - 99 mg/dL [facility] Interpretation and review of laboratory results Abnormal [facility] Glucose [Mass/Vol] 168 mg/dL High 65-99 [facility] BASIC METABOLIC PANLon 02-01 Anion gap [Moles/Vol] 11 mmol/L Normal 5-15 [facility] Comment on above: Performed By: #### P INR, 24384-9, 4679-7, FEPR, 6793-4, 2132- 9, 2276-4, 2284-8, 2731-8, 45990-3 #### [facility] ([id number]) [address], [address] [place] [address] Calcium [Mass/Vol] 9.3 mg/dL Normal 8.5-10.[address] [facility] Comment on above: Performed By: #### P INR, 75034-6, 4679-7, FEPR, 6793-4, 2132- 9, 2276-4, 2284-8, 2731-8, 71612-6 #### [facility] ([id number]) [address], [address] [place] [address] Chloride [Moles/Vol] 98 mmol/L Normal 98-109 [facility] Comment on above: Performed By: #### P INR, 47004-4, 4679-7, FEPR, 6793-4, 2132- 9, 2276-4, 2284-8, 2731-8, 94566-5 #### [facility] ([id number]) [address], [address] [place] [address] CO2 [Moles/Vol] 27 mmol/L Normal 22-32 [facility] Comment on above: Performed By: #### P INR, 69249-7, 4679-7, FEPR, 6793-4, 2132- 9, 2276-4, 2284-8, 2731-8, 18738-8 #### [facility] ([id number]) [address], [address] [place] [address] Creatinine [Mass/Vol] 0.63 mg/dL Normal 0.60-1.30 [facility] Comment on above: Result Comment: METH OD TRACEABLE TO IDMS STANDARD Performed By: #### P INR, 24002-5, 4679-7, FEPR, 6793-4, 2132-9, 2276-4, 2284-8, 2731-8, 13584-3 #### [facility] ([id number]) [address] [place] [address] METHOD TRACEABLE TO IDMS STANDARD Glucose [Mass/Vol] 143 mg/dL High 65-[address] [facility] Comment on above: Performed By: #### P INR, 39732-7, 4679-7, FEPR, 6793-4, 2132- 9, 2276-4, 2284-8, 2731-8, 06478-5 #### [facility] ([id number]) [address], [address] [place] [address] Potassium [Moles/Vol] 3.9 mmol/L Normal 3.5-5.0 [facility] Comment on above: Performed By: #### P INR, 11909-8, 4679-7, FEPR, 6793-4, 2132- 9, 2276-4, 2284-8, 2731-8, 26047-9 #### [facility] ([id number]) [address], [address] [place] [address] Sodium [Moles/Vol] 136 mmol/L Normal 134-[address] [facility] Comment on above: Performed By: #### P INR, 86553-8, 4679-7, FEPR, 6793-4, 2132- 9, 2276-4, 2284-8, 2731-8, 03568-7 #### [facility] ([id number]) [address], [address] [place] [address] Urea nitrogen [Mass/Vol] 14 mg/dL Normal 5-23 [facility] Comment on above: Performed By: #### P INR, 10633-2, 4679-7, FEPR, 6793-4, 2132- 9, 2276-4, 2284-8, 2731-8, 36515-3 #### [facility] ([id number]) [address], [address] [place] [address] eGFR (CKD-EPI) NON-RACE DEPENDENT >90 Normal >59 [facility] Comment on above: Result Comment: Reported eGFR is based on the CKD-EPI 2020 equation that does not use a race coefficient. Performed By: #### P INR, 62944-4, 4679-7, FEPR, 6793-4, 2132-9, 2276-4, 2284-8, 2731-8, 53994-5 #### [facility] ([id number]) [address], [address] [place] [address] Basic Metabolic Panelon 01-13 eGFR (CKD-EPI)non-race dependent - PINF [facility] Comment on above: Reported eGFR is based on the CKD-EPI 2020 equation that does not use a race coefficient. Interpretation and review of laboratory results Abnormal [facility] CBC AND AUTO DIFFon 02-02-20 24 Basophils/100 WBC (Bld) 1.0 % Normal [facility] Comment on above: Performed By: #### P INR, 18497-8, 4679-7, FEPR, 6793-4, 2132- 9, 2276-4, 2284-8, 2731-8, 72242-1 #### [facility] ([id number]) [address], [address] [place] [address] Eosinophils (Bld) [#/Vol] 0.1 10*3/uL Normal 0.0-0.4 [facility] Comment on above: Performed By: #### P INR, 78873-5, 4679-7, FEPR, 6793-4, 2132- 9, 2276-4, 2284-8, 2731-8, 78614-3 #### [facility] ([id number]) [address], [address] [place] [address] Eosinophils/100 WBC (Bld) 1.2 % Normal [facility] Comment on above: Performed By: #### P INR, 11705-5, 4679-7, FEPR, 6793-4, 2132- 9, 2276-4, 2284-8, 2731-8, 98647-8 #### [facility] ([id number]) [address], [address] [place] [address] Erythrocyte distribution width (RBC) [Ratio] 15.9 % High 11.5-15.0 [facility] Comment on above: Performed By: #### P INR, 07235-3, 4679-7, FEPR, 6793-4, 2132- 9, 2276-4, 2284-8, 2731-8, 37978-6 #### [facility] ([id number]) [address], [address] [place] [address] Hematocrit (Bld) [Volume fraction] 30.3 % Low 39-49 [facility] Comment on above: Performed By: #### P INR, 13229-6, 4679-7, FEPR, 6793-4, 2132- 9, 2276-4, 2284-8, 2731-8, 10071-7 #### [facility] ([id number]) [address], [address] [place] [address] Hemoglobin (Bld) [Mass/Vol] 10.3 g/dL Low 13.0-17.0 [facility] Comment on above: Performed By: #### P INR, 48790-3, 4679-7, FEPR, 6793-4, 2132- 9, 2276-4, 2284-8, 2731-8, 85877-5 #### [facility] ([id number]) [address], [address] [place] [address] Lymphocytes (Bld) [#/Vol] 1.4 10*3/uL Normal 1.0-3.5 [facility] Comment on above: Performed By: #### P INR, 48610-7, 4679-7, FEPR, 6793-4, 2132- 9, 2276-4, 2284-8, 2731-8, 66121-2 #### [facility] ([id number]) [address], [address] [place] [address] Lymphocytes/100 WBC (Bld) 21.4 % Normal [facility] Comment on above: Performed By: #### P INR, 86643-1, 4679-7, FEPR, 6793-4, 2132- 9, 2276-4, 2284-8, 2731-8, 22258-5 #### [facility] ([id number]) [address], [address] [place] [address] MCH (RBC) [Entitic mass] 28.9 pg Normal 27-34 [facility] Comment on above: Performed By: #### P INR, 15579-2, 4679-7, FEPR, 6793-4, 2132- 9, 2276-4, 2284-8, 2731-8, 57604-5 #### [facility] ([id number]) [address], [address] [place] [address] MCHC (RBC) [Mass/Vol] 34.1 g/dL Normal 32-36 [facility] Comment on above: Performed By: #### P INR, 34491-6, 4679-7, FEPR, 6793-4, 2132- 9, 2276-4, 2284-8, 2731-8, 76398-1 #### [facility] ([id number]) [address], [address] [place] [address] MCV (RBC) [Entitic vol] 85 fL Normal 80-100 [facility] Comment on above: Performed By: #### P INR, 02597-8, 4679-7, FEPR, 6793-4, 2132- 9, 2276-4, 2284-8, 2731-8, 02312-7 #### [facility] ([id number]) [address], [address] [place] [address] Monocytes (Bld) [#/Vol] 0.6 10*3/uL Normal 0-0.9 [facility] Comment on above: Performed By: #### P INR, 96194-1, 4679-7, FEPR, 6793-4, 2132- 9, 2276-4, 2284-8, 2731-8, 04283-1 #### [facility] ([id number]) [address], [address] [place] [address] Monocytes/100 WBC (Bld) 9.4 % Normal [facility] Comment on above: Performed By: #### P INR, 08937-7, 4679-7, FEPR, 6793-4, 2132- 9, 2276-4, 2284-8, 2731-8, 72815-7 #### [facility] ([id number]) [address], [address] [place] [address] Neutrophils/100 WBC (Bld) 67.0 % Normal [facility] Comment on above: Performed By: #### P INR, 84959-6, 4679-7, FEPR, 6793-4, 2132- 9, 2276-4, 2284-8, 2731-8, 03126-6 #### [facility] ([id number]) [address], [address] [place] [address] Platelet mean volume (Bld) [Entitic vol] 10.0 fL Normal 7-12 [facility] Comment on above: Performed By: #### P INR, 26942-4, 4679-7, FEPR, 6793-4, 2132- 9, 2276-4, 2284-8, 2731-8, 81749-6 #### [facility] ([id number]) [address], [address] [place] [address] Platelets (Bld) [#/Vol] 235 10*3/uL Normal 150-450 [facility] Comment on above: Performed By: #### P INR, 75436-9, 4679-7, FEPR, 6793-4, 2132- 9, 2276-4, 2284-8, 2731-8, 79184-6 #### [facility] ([id number]) [address] [place] [address] ABSOLUTE BASOPHIL 0.1 X10E9/L Normal 0.0-0.2 [facility] Comment on above: Performed By: #### P INR, 45152-9, 4679-7, FEPR, 6793-4, 2- 9, 2276-4, 2284-8, 2731-8, 25799-9 #### [facility] ([id number]) [address] [place] [address] ABSOLUTE NEUTROPHIL 4.3 X10E9/L Normal 1.5-6.6 [facility] Comment on above: Performed By: #### P INR, 05770-0, 4679-7, FEPR, 6793-4, 2132- 9, 2276-4, 2284-8, 2731-8, 77073-9 #### [facility] ([id number]) [address], [address] [place] [address] RBC COUNT 3.58 X10E12/L Low 4.10-5.70 [facility] Comment on above: Performed By: #### P INR, 76468-2, 4679-7, FEPR, 6793-4, 2132- 9, 2276-4, 2284-8, 2731-8, 27008-4 #### [facility] ([id number]) [address] [place] [address] WBC (Bld) [#/Vol] 6.4 10*3/uL Normal 4.0-11.0 [facility] Comment on above: Performed By: #### P INR, 71440-6, 4679-7, FEPR, 6793-4, 2132- 9, 2276-4, 2284-8, 2731-8, 09182-1 #### [facility] ([id number]) [address] [place] [address] CBC auto differentialon 01-13 Basophils (Bld) [#/Vol] 0.1 10*3/uL [facility] Interpretation and review of laboratory results Abnormal [facility] Neutrophils (Bld) [#/Vol] 4.3 10*3/uL [facility] RBC (Bld) [#/Vol] 3.58 10*6/uL Low [facility] WBC corrected for nucl RBC Auto (Bld) [#/Vol] 6.4 [facility] Glucose Glucometer (BldC) [M ass/Vol]on 02-02-2024 Glucose [Mass/Vol] 182 mg/dL High 65 - 99 mg/dL [facility] Interpretation and review of laboratory results Abnormal [facility] [place] Glucose [Mass/Vol] 182 mg/dL High 65-99 [facility] Glucose [Mass/Vol] 131 mg/dL High 65 - 99 mg/dL [facility] Interpretation and review of laboratory results Abnormal [facility] Glucose [Mass/Vol] 131 mg/dL High 65-99 [facility] Glucose [Mass/Vol] 167 mg/dL High 65 - 99 mg/dL [facility] Interpretation and review of laboratory results Abnormal [facility] Glucose [Mass/Vol] 167 mg/dL High 65-99 [facility] Glucose [Mass/Vol] 146 mg/dL High 65 - 99 mg/dL [facility] Interpretation and review of laboratory results Abnormal [facility] Glucose [Mass/Vol] 146 mg/dL High 65-99 [facility].doppler Lower extremity v ein - righton 02-02-2024 [...] at the phone number beside their name. [facility]ARDIOVASCULAR Rox Miller, DO - 02/02/2024 Right: Lower [...] at the phone number beside their name. [facility] Radiology Study observation (narrative) [facility] US.doppler Lower extremity v ein - rightOrdered By: Rox Miller on 02-02-2024 [facility] Work Phone: BASIC METABOLIC PANLon 01-31 Anion gap [Moles/Vol] 13 mmol/L Normal 5-15 [facility] Comment on above: Performed By: #### P INR, 90434-7, 4679-7, FEPR, 6793-4, 2132- 9, 2276-4, 2284-8, 2731-8, 06475-1 #### [facility] ([id number]) [address] [place] [address] Calcium [Mass/Vol] 9.0 mg/dL Normal 8.5-10.5 [facility] Comment on above: Performed By: #### P INR, 80865-4, 4679-7, FEPR, 6793-4, 2132- 9, 2276-4, 2284-8, 2731-8, 26925-7 #### [facility] ([id number]) [address], [address] [place] [address] Chloride [Moles/Vol] 98 mmol/L Normal 98-109 [facility] Comment on above: Performed By: #### P INR, 04486-7, 4679-7, FEPR, 6793-4, 2132- 9, 2276-4, 2284-8, 2731-8, 23688-4 #### [facility] ([id number]) [address] [place] [address] CO2 [Moles/Vol] 23 mmol/L Normal 22-32 [facility] Comment on above: Performed By: #### P INR, 65767-8, 4679-7, FEPR, 6793-4, 2132- 9, 2276-4, 2284-8, 2731-8, 28144-8 #### [facility] ([id number]) [address] [place] [address] Creatinine [Mass/Vol] 0.66 mg/dL Normal 0.60-1.30 [facility] Comment on above: Result Comment: METH OD TRACEABLE TO IDMS STANDARD Performed By: #### P INR, 62451-6, 4679-7, FEPR, 6793-4, 2132-9, 2276-4, 2284-8, 2731-8, 37066-0 #### [facility] ([id number]) [address] [place] [address] eGFR (CKD-EPI) NON-RACE DEPENDENT >90 Normal >59 [facility] Comment on above: Result Comment: Reported eGFR is based on the CKD-EPI 2020 equation that does not use a race coefficient. Performed By: #### P INR, 10044-0, 4679-7, FEPR, 6793-4, 2132-9, 2276-4, 2284-8, 2731-8, 27007-1 #### [facility] ([id number]) [address] [place] [address] Glucose [Mass/Vol] 130 mg/dL High 65-99 [facility] Comment on above: Performed By: #### P INR, 30682-6, 4679-7, FEPR, 6793-4, 2132- 9, 2276-4, 2284-8, 2731-8, 27398-8 #### [facility] ([id number]) [address], [address] [place] [address] Potassium [Moles/Vol] 3.8 mmol/L Normal 3.5-5.0 [facility] Comment on above: Performed By: #### P INR, 89896-9, 4679-7, FEPR, 6793-4, 2132- 9, 2276-4, 2284-8, 2731-8, 61555-5 #### [facility] ([id number]) [address], [address] [place] [address] Sodium [Moles/Vol] 134 mmol/L Normal 134-146 [facility] Comment on above: Performed By: #### P INR, 28685-8, 4679-7, FEPR, 6793-4, 2132- 9, 2276-4, 2284-8, 2731-8, 36025-7 #### [facility] ([id number]) [address], [address] [place] [address] Urea nitrogen [Mass/Vol] 15 mg/dL Normal 5-23 [facility] Comment on above: Performed By: #### P INR, 98989-2, 4679-7, FEPR, 6793-4, 2132- 9, 2276-4, 2284-8, 2731-8, 85839-2 #### [facility] ([id number]) [address], [address] [place] [address] Basic Metabolic Panelon 06-2 Anion gap [Moles/Vol] 13 mmol/L 5 - 15 mmol/L [facility] Calcium [Mass/Vol] 9.0 mg/dL 8.5 - 10. 5 mg/dL [facility] Chloride [Moles/Vol] 98 mmol/L 98 - 10 9 mmol/L [facility] CO2 [Moles/Vol] 23 mmol/L 22 - 32 mmol/L [facility] Creatinine [Mass/Vol] 0.66 mg/dL 0.60 - 1.30 mg/dL [facility] Comment on above: METHOD TRACEABLE TO IDIN STANDARD eGFR (CKD-EPI)non-race dependent - PINF [facility] Comment on above: Reported eGFR is based on the CKD-EPI 2020 equation that does not use a race coefficient. Glucose [Mass/Vol] 130 mg/dL High 65 - 99 mg/dL [facility] Interpretation and review of laboratory results Abnormal [facility] Potassium [Moles/Vol] 3.8 mmol/L 3.5 - 5.0 mmol/L [facility] Sodium [Moles/Vol] 134 mmol/L 134 - 146 mmol/L [facility] Urea nitrogen [Mass/Vol] 15 mg/dL 5 - 23 mg/dL [facility] CBC AND AUTO DIFFon 01-31- ABSOLUTE BASOPHIL 0.1 X10E9/L Normal 0.0-0.2 [facility] Comment on above: Performed By: #### P INR, 74784-4, 4679-7, FEPR, 6793-4, 2132- 9, 2276-4, 2284-8, 2731-8, 71126-5 #### [facility] ([id number]) [address], [address] [place] [address] ABSOLUTE NEUTROPHIL 4.5 X10E9/L Normal 1.5-6.6 [facility] Comment on above: Performed By: #### P INR, 50111-3, 4679-7, FEPR, 6793-4, 2132- 9, 2276-4, 2284-8, 2731-8, 06954-5 #### [facility] ([id number]) [address], [address] [place] [address] Basophils/100 WBC (Bld) 0.9 % Normal [facility] Comment on above: Performed By: #### P INR, 51732-0, 4679-7, FEPR, 6793-4, 2132- 9, 2276-4, 2284-8, 2731-8, 42776-7 #### [facility] ([id number]) [address], [address] [place] [address] Eosinophils (Bld) [#/Vol] 0.1 10*3/uL Normal 0.0-0.4 [facility] Comment on above: Performed By: #### P INR, 64587-3, 4679-7, FEPR, 6793-4, 2132- 9, 2276-4, 2284-8, 2731-8, 36348-0 #### [facility] ([id number]) [address], [address] [place] [address] Eosinophils/100 WBC (Bld) 1.0 % Normal [facility] Comment on above: Performed By: #### P INR, 01352-3, 4679-7, FEPR, 6793-4, 2132- 9, 2276-4, 2284-8, 2731-8, 78395-0 #### [facility] ([id number]) [address], [address] [place] [address] Erythrocyte distribution width (RBC) [Ratio] 15.5 % High 11.5-15.0 [facility] Comment on above: Performed By: #### P INR, 59258-0, 4679-7, FEPR, 6793-4, 2132- 9, 2276-4, 2284-8, 2731-8, 93849-2 #### [facility] ([id number]) [address], [address] [place] [address] Hematocrit (Bld) [Volume fraction] 31.0 % Low 39-49 [facility] Comment on above: Performed By: #### P INR, 04882-1, 4679-7, FEPR, 6793-4, 2132- 9, 2276-4, 2284-8, 2731-8, 09964-1 #### [facility] ([id number]) [address], [address] [place] [address] Hemoglobin (Bld) [Mass/Vol] 10.8 g/dL Low 13.0-17.0 [facility] Comment on above: Performed By: #### P INR, 51425-0, 4679-7, FEPR, 6793-4, 2132- 9, 2276-4, 2284-8, 2731-8, 49154-6 #### [facility] ([id number]) [address], [address] [place] [address] Lymphocytes (Bld) [#/Vol] 1.3 10*3/uL Normal 1.0-3.5 [facility] Comment on above: Performed By: #### P INR, 03747-1, 4679-7, FEPR, 6793-4, 2132- 9, 2276-4, 2284-8, 2731-8, 60923-2 #### [facility] ([id number]) [address], [address] [place] [address] Lymphocytes/100 WBC (Bld) 20.0 % Normal [facility] Comment on above: Performed By: #### P INR, 65824-9, 4679-7, FEPR, 6793-4, 2132- 9, 2276-4, 2284-8, 2731-8, 40448-0 #### [facility] ([id number]) [address], [address] [place] [address] MCH (RBC) [Entitic mass] 29.2 pg Normal 27-34 [facility] Comment on above: Performed By: #### P INR, 17526-8, 4679-7, FEPR, 6793-4, 2132- 9, 2276-4, 2284-8, 2731-8, 04571-0 #### [facility] ([id number]) [address], [address] [place] [address] MCHC (RBC) [Mass/Vol] 34.7 g/dL Normal 32-36 [facility] Comment on above: Performed By: #### P INR, 97281-5, 4679-7, FEPR, 6793-4, 2132- 9, 2276-4, 2284-8, 2731-8, 53815-9 #### [facility] ([id number]) [address], [address] [place] [address] MCV (RBC) [Entitic vol] 84 fL Normal 80-100 [facility] Comment on above: Performed By: #### P INR, 06597-2, 4679-7, FEPR, 6793-4, 2132- 9, 2276-4, 2284-8, 2731-8, 60414-4 #### [facility] ([id number]) [address], [address] [place] [address] Monocytes (Bld) [#/Vol] 0.6 10*3/uL Normal 0-0.9 [facility] Comment on above: Performed By: #### P INR, 06498-8, 4679-7, FEPR, 6793-4, 2132- 9, 2276-4, 2284-8, 2731-8, 20615-5 #### [facility] ([id number]) [address], [address] [place] [address] Monocytes/100 WBC (Bld) 8.5 % Normal [facility] Comment on above: Performed By: #### P INR, 40543-9, 4679-7, FEPR, 6793-4, 2132- 9, 2276-4, 2284-8, 2731-8, 59516-6 #### [facility] ([id number]) [address], [address] [place] [address] Neutrophils/100 WBC (Bld) 69.6 % Normal [facility] Comment on above: Performed By: #### P INR, 81167-8, 4679-7, FEPR, 6793-4, 2132- 9, 2276-4, 2284-8, 2731-8, 92574-0 #### [facility] ([id number]) [address], [address] [place] [address] Platelet mean volume (Bld) [Entitic vol] 10.4 fL Normal 7-12 [facility] Comment on above: Performed By: #### P INR, 52884-3, 4679-7, FEPR, 6793-4, 2132- 9, 2276-4, 2284-8, 2731-8, 57226-5 #### [facility] ([id number]) [address], [address] [place] [address] Platelets (Bld) [#/Vol] 273 10*3/uL Normal 150-450 [facility] Comment on above: Performed By: #### P INR, 29945-1, 4679-7, FEPR, 6793-4, 2132- 9, 2276-4, 2284-8, 2731-8, 81656-8 #### [facility] ([id number]) [address], [address] [place] [address] RBC COUNT 3.69 X10E12/L Low 4.10-5.70 [facility] Comment on above: Performed By: #### P INR, 57161-1, 4679-7, FEPR, 6793-4, 2132- 9, 2276-4, 2284-8, 2731-8, 05409-7 #### [facility] ([id number]) [address], [address] [place] [address] WBC (Bld) [#/Vol] 6.5 10*3/uL Normal 4.0-11.0 [facility] Comment on above: Performed By: #### P INR, 79817-4, 4679-7, FEPR, 6793-4, 2132- 9, 2276-4, 2284-8, 2731-8, 63652-8 #### [facility] ([id number]) [address], [address] [place] [address] CBC auto differentialon 01-13 0-2023 Basophils (Bld) [#/Vol] 0.1 10*3/uL [facility] Basophils/100 WBC (Bld) 0.9 % [facility] Eosinophils (Bld) [#/Vol] 0.1 10*3/uL [facility] Eosinophils/100 WBC (Bld) 1.0 % [facility] Erythrocyte distribution width (RBC) [Ratio] 15.5 % High 11.5 - 15.0 % [facility] Hematocrit (Bld) [Volume fraction] 31.0 % Low 39 - 49 % [facility] Hemoglobin (Bld) [Mass/Vol] 10.8 g/dL Low 13.0 - 17.0 g/dL [facility] Interpretation and review of laboratory results Abnormal [facility] Lymphocytes (Bld) [#/Vol] 1.3 10*3/uL [facility] Lymphocytes/100 WBC (Bld) 20.0 % [facility] MCH (RBC) [Entitic mass] 29.2 pg 27 - 34 pg [facility] MCHC (RBC) [Mass/Vol] 34.7 g/dL 32 - 3 6 g/dL [facility] MCV (RBC) [Entitic vol] 84 fL 80 - 100 fL [facility] Monocytes (Bld) [#/Vol] 0.6 10*3/uL [facility] Monocytes/100 WBC (Bld) 8.5 % [facility] Neutrophils (Bld) [#/Vol] 4.5 10*3/uL [facility] Neutrophils/100 WBC (Bld) 69.6 % [facility] Platelet mean volume (Bld) [Entitic vol] 10.4 fL 7 - 12 fL [facility] Platelets (Bld) [#/Vol] 273 10*3/uL [facility] RBC (Bld) [#/Vol] 3.69 10*6/uL Low [facility] WBC corrected for nucl RBC Auto (Bld) [#/Vol] 6.5 [facility] Glucose Glucometer (BldC) [M ass/Vol]on 02-01-2024 Glucose [Mass/Vol] 135 mg/dL High 65 - 99 mg/dL [facility] Interpretation and review of laboratory results Abnormal [facility] Glucose [Mass/Vol] 135 mg/dL High 65-99 [facility] Glucose [Mass/Vol] 232 mg/dL High 65 - 99 mg/dL [facility] Interpretation and review of laboratory results Abnormal [facility] Glucose [Mass/Vol] 232 mg/dL High 65-99 [facility] Glucose [Mass/Vol] 132 mg/dL High 65 - 99 mg/dL [facility] Interpretation and review of laboratory results Abnormal [facility] Glucose [Mass/Vol] 132 mg/dL High 65-99 [facility] Glucose [Mass/Vol] 125 mg/dL High 65 - 99 mg/dL [facility] Interpretation and review of laboratory results Abnormal [facility] Glucose [Mass/Vol] 125 mg/dL High 65-99 [facility] BASIC METABOLIC PANLon 01-30 Anion gap [Moles/Vol] 12 mmol/L Normal 5-15 [facility] Comment on above: Performed By: #### P INR, 75922-9, 4679-7, FEPR, 6793-4, 2132- 9, 2276-4, 2284-8, 2731-8, 01705-1 #### [facility] ([id number]) [address], [address] [place] [address] Calcium [Mass/Vol] 9.0 mg/dL Normal 8.5-10.5 [facility] Comment on above: Performed By: #### P INR, 89528-4, 4679-7, FEPR, 6793-4, 2132- 9, 2276-4, 2284-8, 2731-8, 79252-5 #### [facility] ([id number]) [address], [address] [place] [address] Chloride [Moles/Vol] 95 mmol/L Low 98-109 [facility] Comment on above: Performed By: #### P INR, 86198-9, 4679-7, FEPR, 6793-4, 2132- 9, 2276-4, 2284-8, 2731-8, 21362-7 #### [facility] ([id number]) [address], [address] [place] [address] CO2 [Moles/Vol] 24 mmol/L Normal 22-32 [facility] Comment on above: Performed By: #### P INR, 66535-7, 4679-7, FEPR, 6793-4, 2132- 9, 2276-4, 2284-8, 2731-8, 06335-5 #### [facility] ([id number]) [address], [address] [place] [address] Creatinine [Mass/Vol] 0.64 mg/dL Normal 0.60-1.30 [facility] Comment on above: Result Comment: METH OD TRACEABLE TO IDMS STANDARD Performed By: #### P INR, 26349-5, 4679-7, FEPR, 6793-4, 2132-9, 2276-4, 2284-8, 2731-8, 27257-8 #### [facility] ([id number]) [address], [address] [place] [address] eGFR (CKD-EPI) NON-RACE DEPENDENT >90 Normal >59 [facility] Comment on above: Result Comment: Reported eGFR is based on the CKD-EPI 2020 equation that does not use a race coefficient. Performed By: #### P INR, 14914-7, 4679-7, FEPR, 6793-4, 2132-9, 2276-4, 2284-8, 2731-8, 21959-6 #### [facility] ([id number]) [address], [address] [place] [address] Glucose [Mass/Vol] 205 mg/dL High 65-99 [facility] Comment on above: Performed By: #### P INR, 11269-5, 4679-7, FEPR, 6793-4, 2132- 9, 2276-4, 2284-8, 2731-8, 13296-1 #### [facility] ([id number]) [address], [address] [place] [address] Potassium [Moles/Vol] 4.1 mmol/L Normal 3.5-5.0 [facility] Comment on above: Performed By: #### P INR, 03405-9, 4679-7, FEPR, 6793-4, 2132- 9, 2276-4, 2284-8, 2731-8, 52675-9 #### [facility] ([id number]) [address], [address] [place] [address] Sodium [Moles/Vol] 131 mmol/L Low 134-146 [facility] Comment on above: Performed By: #### P INR, 37736-0, 4679-7, FEPR, 6793-4, 2132- 9, 2276-4, 2284-8, 2731-8, 92579-9 #### [facility] ([id number]) [address], [address] [place] [address] Urea nitrogen [Mass/Vol] 13 mg/dL Normal 5-23 [facility] Comment on above: Performed By: #### P INR, 32057-6, 4679-7, FEPR, 6793-4, 2132- 9, 2276-4, 2284-8, 2731-8, 56059-5 #### [facility] ([id number]) [address], [address] [place] [address] Basic Metabolic Panelon 01-12 Anion gap [Moles/Vol] 12 mmol/L 5 - 15 mmol/L [facility] Calcium [Mass/Vol] 9.0 mg/dL 8.5 - 10. 5 mg/dL [facility] Chloride [Moles/Vol] 95 mmol/L Low 98 - 10 9 mmol/L [facility] CO2 [Moles/Vol] 24 mmol/L 22 - 32 mmol/L [facility] Creatinine [Mass/Vol] 0.64 mg/dL 0.60 - 1.30 mg/dL [facility] Comment on above: METHOD TRACEABLE TO IDIN STANDARD eGFR (CKD-EPI)non-race dependent - PINF [facility] Comment on above: Reported eGFR is based on the CKD-EPI 2020 equation that does not use a race coefficient. Glucose [Mass/Vol] 205 mg/dL High 65 - 99 mg/dL [facility] Interpretation and review of laboratory results Abnormal [facility] Potassium [Moles/Vol] 4.1 mmol/L 3.5 - 5.0 mmol/L [facility] Sodium [Moles/Vol] 131 mmol/L Low 134 - 146 mmol/L [facility] Urea nitrogen [Mass/Vol] 13 mg/dL 5 - 23 mg/dL [facility] CBC without diffon Erythrocyte distribution width (RBC) [Ratio] 15.7 % High 11.5 - 15.0 % [facility] Hematocrit (Bld) [Volume fraction] 27.1 % Low 39 - 49 % [facility] Hemoglobin (Bld) [Mass/Vol] 9.4 g/dL Low 13.0 - 17.0 g/dL [facility] Interpretation and review of laboratory results Abnormal [facility] MCH (RBC) [Entitic mass] 28.8 pg 27 - 34 pg [facility] MCHC (RBC) [Mass/Vol] 34.7 g/dL 32 - 3 6 g/dL [facility] MCV (RBC) [Entitic vol] 83 fL 80 - 100 fL [facility] Platelet mean volume (Bld) [Entitic vol] 10.4 fL 7 - 12 fL [facility] Platelets (Bld) [#/Vol] 230 10*3/uL [facility] RBC (Bld) [#/Vol] 3.26 10*6/uL Low [facility] WBC corrected for nucl RBC Auto (Bld) [#/Vol] 11.2 High [facility] COMPLETE BLOOD COUNTon 01-30 Erythrocyte distribution width (RBC) [Ratio] 15.7 % High 11.5-15.0 [facility] Comment on above: Performed By: #### P INR, 19428-3, 4679-7, FEPR, 6793-4, 2132- 9, 2276-4, 2284-8, 2731-8, 11945-1 #### [facility] ([id number]) [address], [address] [place] [address] Hematocrit (Bld) [Volume fraction] 27.1 % Low 39-49 [facility] Comment on above: Performed By: #### P INR, 83466-3, 4679-7, FEPR, 6793-4, 2132- 9, 2276-4, 2284-8, 2731-8, 41305-7 #### [facility] ([id number]) [address], [address] [place] [address] Hemoglobin (Bld) [Mass/Vol] 9.4 g/dL Low 13.0-17.0 [facility] Comment on above: Performed By: #### P INR, 92160-9, 4679-7, FEPR, 6793-4, 2132- 9, 2276-4, 2284-8, 2731-8, 24656-7 #### [facility] ([id number]) [address], [address] [place] [address] MCH (RBC) [Entitic mass] 28.8 pg Normal 27-34 [facility] Comment on above: Performed By: #### P INR, 54377-3, 4679-7, FEPR, 6793-4, 2132- 9, 2276-4, 2284-8, 2731-8, 81216-7 #### [facility] ([id number]) [address], [address] [place] [address] MCHC (RBC) [Mass/Vol] 34.7 g/dL Normal 32-36 [facility] Comment on above: Performed By: #### P INR, 76584-3, 4679-7, FEPR, 6793-4, 2132- 9, 2276-4, 2284-8, 2731-8, 70379-2 #### [facility] ([id number]) [address], [address] [place] [address] MCV (RBC) [Entitic vol] 83 fL Normal 80-100 [facility] Comment on above: Performed By: #### P INR, 98983-6, 4679-7, FEPR, 6793-4, 2132- 9, 2276-4, 2284-8, 2731-8, 98442-1 #### [facility] ([id number]) [address], [address] [place] [address] Platelet mean volume (Bld) [Entitic vol] 10.4 fL Normal 7-12 [facility] Comment on above: Performed By: #### P INR, 70877-5, 4679-7, FEPR, 6793-4, 2132- 9, 2276-4, 2284-8, 2731-8, 68887-3 #### [facility] ([id number]) [address], [address] [place] [address] Platelets (Bld) [#/Vol] 230 10*3/uL Normal 150-450 [facility] Comment on above: Performed By: #### P INR, 09845-0, 4679-7, FEPR, 6793-4, 2132- 9, 2276-4, 2284-8, 2731-8, 40428-1 #### [facility] ([id number]) [address] [place] [address] RBC COUNT 3.26 X10E12/L Low 4.10-5.70 [facility] Comment on above: Performed By: #### P INR, 53361-2, 4679-7, FEPR, 6793-4, 2132- 9, 2276-4, 2284-8, 2731-8, 28594-8 #### [facility] ([id number]) [address], [address] [place] [address] WBC (Bld) [#/Vol] 11.2 10*3/uL High 4.0-11.0 [facility] Comment on above: Performed By: #### P INR, 91830-0, 4679-7, FEPR, 6793-4, 2132- 9, 2276-4, 2284-8, 2731-8, 97324-0 #### [facility] ([id number]) [address] [place] [address] Glucose Glucometer (BldC) [M ass/Vol]on 01-31-2024 Glucose [Mass/Vol] 260 mg/dL High 65 - 99 mg/dL [facility] Interpretation and review of laboratory results Abnormal [facility] Glucose [Mass/Vol] 260 mg/dL High 65-99 [facility] Glucose [Mass/Vol] 145 mg/dL High 65 - 99 mg/dL [facility] Interpretation and review of laboratory results Abnormal [facility] Glucose [Mass/Vol] 145 mg/dL High 65-99 [facility] Glucose [Mass/Vol] 185 mg/dL High 65 - 99 mg/dL [facility] Interpretation and review of laboratory results Abnormal [facility] Glucose [Mass/Vol] 185 mg/dL High 65-99 [facility] Glucose [Mass/Vol] 198 mg/dL High 65 - 99 mg/dL [facility] Interpretation and review of laboratory results Abnormal [facility] Glucose [Mass/Vol] 198 mg/dL High 65-99 [facility] Osmolalityon 01-31-2024 Osmolality [Osmolality] 279 mosm/kg Low [facility] Osmolality (U) [Osmolality]o n 01-31-2024 [facility] URINE OSMOLALITY 521 mOsm/kg H2 Normal 300-1300 [facility] Comment on above: Performed By: #### P INR, 41196-8, 4679-7, FEPR, 6793-4, 2132- 9, 2276-4, 2284-8, 2731-8, 32232-5 #### [facility] ([id number]) [address], [address] [place] [address] Osmolality [Osmolality]on Interpretation and review of laboratory results Abnormal [facility] OSMOLALITY 279 mOsm/kg H2 Low 280-300 [facility] Comment on above: Performed By: #### P INR, 52285-8, 4679-7, FEPR, 6793-4, 2131- 9, 6-4, 2284-8, 2731-8, 37249-6 #### [facility] ([id number]) [address], [address] [place] [address] Osmolality, urineon 01-31-20 Osmolality (U) [Osmolality] 521 mosm/kg [facility] Sodium (U) [Moles/Vol]on [facility] Sodium, urine, randomon 01-12 Sodium (U) [Moles/Vol] 10 mmol/L [facility] URINE SODIUM,RANDOMon 2023 Sodium (U) [Moles/Vol] 10 mmol/L Normal [facility] Comment on above: Performed By: #### P INR, 73175-8, 4679-7, FEPR, 6793-4, 213- 9, 2276-4, 2284-8, 2731-8, 41118-2 #### [facility] ([id number]) [address], [address] [place] [address] BASIC METABOLIC PANLon 01-29 Anion gap [Moles/Vol] 9 mmol/L Normal 5-15 [facility] Comment on above: Performed By: #### P INR, 81405-7, 4679-7, FEPR, 6793-4, 2132- 9, 2276-4, 2284-8, 2731-8, 84713-7 #### [facility] ([id number]) [address], [address] [place] [address] Calcium [Mass/Vol] 9.6 mg/dL Normal 8.5-10.5 [facility] Comment on above: Performed By: #### P INR, 49289-5, 4679-7, FEPR, 6793-4, 2132- 9, 2276-4, 2284-8, 2731-8, 12424-0 #### [facility] ([id number]) [address] [place] [address] Chloride [Moles/Vol] 97 mmol/L Low 98-109 [facility] Comment on above: Performed By: #### P INR, 65071-6, 4679-7, FEPR, 6793-4, 2132- 9, 2276-4, 2284-8, 2731-8, 00755-3 #### [facility] ([id number]) [address], [address] [place] [address] CO2 [Moles/Vol] 29 mmol/L Normal 22-32 [facility] Comment on above: Performed By: #### P INR, 30104-5, 4679-7, FEPR, 6793-4, 2132- 9, 2276-4, 2284-8, 2731-8, 09530-1 #### [facility] ([id number]) [address], [address] [place] [address] Creatinine [Mass/Vol] 0.65 mg/dL Normal 0.60-1.30 [facility] Comment on above: Result Comment: METH OD TRACEABLE TO IDMS STANDARD Performed By: #### P INR, 52760-8, 4679-7, FEPR, 6793-4, 2132-9, 2276-4, 2284-8, 2731-8, 17627-0 #### [facility] ([id number]) [address], [address] [place] [address] eGFR (CKD-EPI) NON-RACE DEPENDENT >90 Normal >59 [facility] Comment on above: Result Comment: Reported eGFR is based on the CKD-EPI 2020 equation that does not use a race coefficient. Performed By: #### P INR, 86569-6, 4679-7, FEPR, 6793-4, 2132-9, 2276-4, 2284-8, 2731-8, 23372-3 #### [facility] ([id number]) [address], [address] [place] [address] Glucose [Mass/Vol] 159 mg/dL High 65-99 [facility] Comment on above: Performed By: #### P INR, 95138-4, 4679-7, FEPR, 6793-4, 2132- 9, 2276-4, 2284-8, 2731-8, 52637-5 #### [facility] ([id number]) [address], [address] [place] [address] Potassium [Moles/Vol] 4.6 mmol/L Normal 3.5-5.0 [facility] Comment on above: Performed By: #### P INR, 96886-2, 4679-7, FEPR, 6793-4, 2132- 9, 2276-4, 2284-8, 2731-8, 42090-0 #### [facility] ([id number]) [address], [address] [place] [address] Sodium [Moles/Vol] 135 mmol/L Normal 134-146 [facility] Comment on above: Performed By: #### P INR, 24292-4, 4679-7, FEPR, 6793-4, 2132- 9, 2276-4, 2284-8, 2731-8, 81811-6 #### [facility] ([id number]) [address], [address] [place] [address] Urea nitrogen [Mass/Vol] 13 mg/dL Normal 5-23 [facility] Comment on above: Performed By: #### P INR, 29163-9, 4679-7, FEPR, 6793-4, 2132- 9, 2276-4, 2284-8, 2731-8, 95694-8 #### [facility] ([id number]) [address], [address] [place] [address] Basic Metabolic Panelon 06- Anion gap [Moles/Vol] 9 mmol/L 5 - 15 mmol/L [facility] Calcium [Mass/Vol] 9.6 mg/dL 8.5 - 10. 5 mg/dL [facility] Chloride [Moles/Vol] 97 mmol/L Low 98 - 10 9 mmol/L [facility] CO2 [Moles/Vol] 29 mmol/L 22 - 32 mmol/L [facility] Creatinine [Mass/Vol] 0.65 mg/dL 0.60 - 1.30 mg/dL [facility] Comment on above: METHOD TRACEABLE TO IDIN STANDARD eGFR (CKD-EPI)non-race dependent - PINF [facility] Comment on above: Reported eGFR is based on the CKD-EPI 2020 equation that does not use a race coefficient. Glucose [Mass/Vol] 159 mg/dL High 65 - 99 mg/dL [facility] Interpretation and review of laboratory results Abnormal [facility] Potassium [Moles/Vol] 4.6 mmol/L 3.5 - 5.0 mmol/L [facility] Sodium [Moles/Vol] 135 mmol/L 134 - 146 mmol/L [facility] Urea nitrogen [Mass/Vol] 13 mg/dL 5 - 23 mg/dL [facility] CBC without diffon Erythrocyte distribution width (RBC) [Ratio] 15.9 % High 11.5 - 15.0 % [facility] Hematocrit (Bld) [Volume fraction] 34.6 % Low 39 - 49 % [facility] Hemoglobin (Bld) [Mass/Vol] 11.4 g/dL Low 13.0 - 17.0 g/dL [facility] Interpretation and review of laboratory results Abnormal [facility] MCH (RBC) [Entitic mass] 27.6 pg 27 - 34 pg [facility] MCHC (RBC) [Mass/Vol] 33.0 g/dL 32 - 3 6 g/dL [facility] MCV (RBC) [Entitic vol] 84 fL 80 - 100 fL [facility] Platelet mean volume (Bld) [Entitic vol] 10.2 fL 7 - 12 fL [facility] Platelets (Bld) [#/Vol] 180 10*3/uL [facility] RBC (Bld) [#/Vol] 4.13 10*6/uL [facility] [facility] WBC corrected for nucl RBC Auto (Bld) [#/Vol] 7.8 [facility] COMPLETE BLOOD COUNTon 01-29 Erythrocyte distribution width (RBC) [Ratio] 15.9 % High 11.5-15.0 [facility] Comment on above: Performed By: #### P INR, 29615-4, 4679-7, FEPR, 6793-4, 2- 9, 2276-4, 2284-8, 2731-8, 93348-0 #### [facility] ([id number]) [address], [address] [place] [address] Hematocrit (Bld) [Volume fraction] 34.6 % Low 39-49 [facility] Comment on above: Performed By: #### P INR, 62993-7, 4679-7, FEPR, 6793-4, 2132- 9, 2276-4, 2284-8, 2731-8, 24646-7 #### [facility] ([id number]) [address], [address] [place] [address] Hemoglobin (Bld) [Mass/Vol] 11.4 g/dL Low 13.0-17.0 [facility] Comment on above: Performed By: #### P INR, 58722-4, 4679-7, FEPR, 6793-4, 2132- 9, 2276-4, 2284-8, 2731-8, 01391-9 #### [facility] ([id number]) [address], [address] [place] [address] MCH (RBC) [Entitic mass] 27.6 pg Normal 27-34 [facility] Comment on above: Performed By: #### P INR, 69775-4, 4679-7, FEPR, 6793-4, 2132- 9, 2276-4, 2284-8, 2731-8, 27583-6 #### [facility] ([id number]) [address], [address] [place] [address] MCHC (RBC) [Mass/Vol] 33.0 g/dL Normal 32-36 [facility] Comment on above: Performed By: #### P INR, 91226-8, 4679-7, FEPR, 6793-4, 2132- 9, 2276-4, 2284-8, 2731-8, 23634-1 #### [facility] ([id number]) [address], [address] [place] [address] MCV (RBC) [Entitic vol] 84 fL Normal 80-100 [facility] Comment on above: Performed By: #### P INR, 82838-4, 4679-7, FEPR, 6793-4, 2132- 9, 2276-4, 2284-8, 2731-8, 92816-9 #### [facility] ([id number]) [address], [address] [place] [address] Platelet mean volume (Bld) [Entitic vol] 10.2 fL Normal 7-12 [facility] Comment on above: Performed By: #### P INR, 93893-7, 4679-7, FEPR, 6793-4, 2132- 9, 2276-4, 2284-8, 2731-8, 84620-6 #### [facility] ([id number]) [address], [address] [place] [address] Platelets (Bld) [#/Vol] 180 10*3/uL Normal 150-450 [facility] Comment on above: Performed By: #### P INR, 96580-8, 4679-7, FEPR, 6793-4, 2132- 9, 2276-4, 2284-8, 2731-8, 90292-8 #### [facility] ([id number]) [address], [address] [place] [address] RBC COUNT 4.13 X10E12/L Normal 4.10-5.70 [facility] Comment on above: Performed By: #### P INR, 40029-6, 4679-7, FEPR, 6793-4, 2132- 9, 2276-4, 2284-8, 2731-8, 37262-5 #### [facility] ([id number]) [address], [address] [place] [address] WBC (Bld) [#/Vol] 7.8 10*3/uL Normal 4.0-11.0 [facility] Comment on above: Performed By: #### P INR, 91007-0, 4679-7, FEPR, 6793-4, 2132- 9, 2276-4, 2284-8, 2731-8, 93621-0 #### [facility] ([id number]) [address], [address] [place] [address] Glucose Glucometer (BldC) [M ass/Vol]on 01-30-2024 Glucose [Mass/Vol] 279 mg/dL High 65 - 99 mg/dL [facility] Interpretation and review of laboratory results Abnormal [facility] Glucose [Mass/Vol] 279 mg/dL High 65-99 [facility] Glucose [Mass/Vol] 276 mg/dL High 65 - 99 mg/dL [facility] Interpretation and review of laboratory results Abnormal [facility] Glucose [Mass/Vol] 276 mg/dL High 65-99 [facility] Glucose [Mass/Vol] 161 mg/dL High 65 - 99 mg/dL [facility] Interpretation and review of laboratory results Abnormal [facility] Glucose [Mass/Vol] 161 mg/dL High 65-99 [facility] XR FEMUR RT 2+ VIEWSon 01-29 XR FEMUR RT 2+ VIEWS XR FEMUR RT 2+ VIEW S XR FEMUR RT 2+ VIEWS Clinical history:REMOVAL HARDWARE INTRAMEDULLARY NAIL/KATERYNA FEMUR right hip pain Comparison: 01/29/2024 Impression: Postoperative changes with new intramedullary kateryna placement. Near anatomic alignment. No evidence of immediate hardware complication. Finalized by Marc Paredes MD on 01/30/2024 1:43 PM Normal [facility] XR FEMUR RT 2+ VIEWS XR [...] Ortega MD on 01/30/2024 6:37 AM Normal [facility] XR Femur - right 2 Viewson 0 01-30-2024 XR FEMUR RT 2+ VIEWS Clinical history:REMOVAL HARDWARE INTRAMEDULLARY NAIL/KATERYNA FEMUR right hip pain Comparison: 01/29/2024 Impression: Postoperative changes with new intramedullary kateryna placement. Near anatomic alignment. No evidence of immediate hardware complication. Finalized by Marc Paredes MD on 01/30/2024 1:43 PM [facility] Marc Paredes MD - 01/30/2024 XR FEMUR RT 2+ VIEWS Clinical history:REMOVAL HARDWARE INTRAMEDULLARY NAIL/KATERYNA FEMUR right hip pain Comparison: 01/29/2024 Impression: Postoperative changes with new intramedullary kateryna placement. Near anatomic alignment. No evidence of immediate hardware complication. Finalized by Marc Paredes MD on 01/30/2024 1:43 PM [facility] Jun Ortega MD - 01/30/2024 Clinical history: [...] Jun Ortega MD on 01/30/2024 1:28 PM [facility] Radiology Study observation (narrative) [facility] Radiology Study observation (narrative) [facility] XR Femur - right 2 ViewsOrde red By: Marc Paredes on 01-30-2024 [facility] Work Phone: XR Femur - right 2 ViewsOrde red By: Jun Ortega on 01-30-2024 [facility] Work Phone: APTTon 01-29-2024 aPTT Coag (PPP) [Time] 29 s [facility] BASIC METABOLIC PANLon 01-28 Anion gap [Moles/Vol] 14 mmol/L Normal 5-15 [facility] Comment on above: Performed By: #### P INR, 62060-6, 4679-7, FEPR, 6793-4, 2132- 9, 2276-4, 2284-8, 2731-8, 75891-9 #### [facility] ([id number]) [address], [address] [place] [address] Calcium [Mass/Vol] 9.5 mg/dL Normal 8.5-10.5 [facility] Comment on above: Performed By: #### P INR, 18194-9, 4679-7, FEPR, 6793-4, 2132- 9, 2276-4, 2284-8, 2731-8, 20461-6 #### [facility] ([id number]) [address], [address] [place] [address] Chloride [Moles/Vol] 95 mmol/L Low 98-109 [facility] Comment on above: Performed By: #### P INR, 88082-7, 4679-7, FEPR, 6793-4, 2132- 9, 2276-4, 2284-8, 2731-8, 26943-9 #### [facility] ([id number]) [address], [address] [place] [address] CO2 [Moles/Vol] 22 mmol/L Normal 22-32 [facility] Comment on above: Performed By: #### P INR, 49477-3, 4679-7, FEPR, 6793-4, 2132- 9, 2276-4, 2284-8, 2731-8, 39499-9 #### [facility] ([id number]) [address], [address] [place] [address] Creatinine [Mass/Vol] 0.54 mg/dL Low 0.60-1.30 [facility] Comment on above: Result Comment: METH OD TRACEABLE TO IDMS STANDARD Performed By: #### P INR, 40704-6, 4679-7, FEPR, 6793-4, 2132-9, 2276-4, 2284-8, 2731-8, 54084-7 #### [facility] ([id number]) [address], [address] [place] [address] eGFR (CKD-EPI) NON-RACE DEPENDENT >90 Normal >59 [facility] Comment on above: Result Comment: Reported eGFR is based on the CKD-EPI 2020 equation that does not use a race coefficient. Performed By: #### P INR, 33970-0, 4679-7, FEPR, 6793-4, 2132-9, 2276-4, 2284-8, 2731-8, 89731-7 #### [facility] ([id number]) [address], [address] [place] [address] Glucose [Mass/Vol] 193 mg/dL High 65-99 [facility] Comment on above: Performed By: #### P INR, 37690-0, 4679-7, FEPR, 6793-4, 2132- 9, 2276-4, 2284-8, 2731-8, 80851-5 #### [facility] ([id number]) [address], [address] [place] [address] Potassium [Moles/Vol] 3.7 mmol/L Normal 3.5-5.0 [facility] Comment on above: Performed By: #### P INR, 49487-7, 4679-7, FEPR, 6793-4, 2132- 9, 2276-4, 2284-8, 2731-8, 94963-2 #### [facility] ([id number]) [address], [address] [place] [address] Sodium [Moles/Vol] 131 mmol/L Low 134-146 [facility] Comment on above: Performed By: #### P INR, 84352-7, 4679-7, FEPR, 6793-4, 2132- 9, 2276-4, 2284-8, 2731-8, 94885-0 #### [facility] ([id number]) [address], [address] [place] [address] Urea nitrogen [Mass/Vol] 9 mg/dL Normal 5-23 [facility] Comment on above: Performed By: #### P INR, 01367-2, 4679-7, FEPR, 6793-4, 2132- 9, 2276-4, 2284-8, 2731-8, 60225-2 #### [facility] ([id number]) [address], [address] [place] [address] Anion gap [Moles/Vol] 12 mmol/L Normal 5-15 [facility] Comment on above: Performed By: #### P INR, 47102-0, 4679-7, FEPR, 6793-4, 2132- 9, 2276-4, 2284-8, 2731-8, 90970-7 #### [facility] ([id number]) [address], [address] [place] [address] Calcium [Mass/Vol] 9.4 mg/dL Normal 8.5-10.5 [facility] Comment on above: Performed By: #### P INR, 68783-7, 4679-7, FEPR, 6793-4, 2132- 9, 2276-4, 2284-8, 2731-8, 70015-0 #### [facility] ([id number]) [address], [address] [place] [address] Chloride [Moles/Vol] 95 mmol/L Low 98-109 [facility] Comment on above: Performed By: #### P INR, 22049-7, 4679-7, FEPR, 6793-4, 2132- 9, 2276-4, 2284-8, 2731-8, 43542-6 #### [facility] ([id number]) [address], [address] [place] [address] CO2 [Moles/Vol] 24 mmol/L Normal 22-32 [facility] Comment on above: Performed By: #### P INR, 81735-9, 4679-7, FEPR, 6793-4, 2132- 9, 2276-4, 2284-8, 2731-8, 96506-8 #### [facility] ([id number]) [address], [address] [place] [address] Creatinine [Mass/Vol] 0.51 mg/dL Low 0.60-1.30 [facility] Comment on above: Result Comment: METH OD TRACEABLE TO IDMS STANDARD Performed By: #### P INR, 85824-8, 4679-7, FEPR, 6793-4, 2132-9, 2276-4, 2284-8, 2731-8, 01871-5 #### [facility] ([id number]) [address], [address] [place] [address] eGFR (CKD-EPI) NON-RACE DEPENDENT >90 Normal >59 [facility] Comment on above: Result Comment: Reported eGFR is based on the CKD-EPI 2020 equation that does not use a race coefficient. Performed By: #### P INR, 61628-2, 4679-7, FEPR, 6793-4, 2132-9, 2276-4, 2284-8, 2731-8, 87693-8 #### [facility] ([id number]) [address], [address] [place] [address] Glucose [Mass/Vol] 212 mg/dL High 65-99 [facility] Comment on above: Performed By: #### P INR, 55485-6, 4679-7, FEPR, 6793-4, 2132- 9, 2276-4, 2284-8, 2731-8, 65388-8 #### [facility] ([id number]) [address], [address] [place] [address] Potassium [Moles/Vol] 3.7 mmol/L Normal 3.5-5.0 [facility] Comment on above: Performed By: #### P INR, 75264-9, 4679-7, FEPR, 6793-4, 2132- 9, 2276-4, 2284-8, 2731-8, 80230-4 #### [facility] ([id number]) [address], [address] [place] [address] Sodium [Moles/Vol] 131 mmol/L Low 134-146 [facility] Comment on above: Performed By: #### P INR, 74052-6, 4679-7, FEPR, 6793-4, 2132- 9, 2276-4, 2284-8, 2731-8, 13329-0 #### [facility] ([id number]) [address], [address] [place] [address] Urea nitrogen [Mass/Vol] 9 mg/dL Normal 5-23 [facility] Comment on above: Performed By: #### P INR, 32735-3, 4679-7, FEPR, 6793-4, 2132- 9, 2276-4, 2284-8, 2731-8, 02307-9 #### [facility] ([id number]) [address], [address] [place] [address] Basic Metabolic Panelon 06- Anion gap [Moles/Vol] 14 mmol/L 5 - 15 mmol/L [facility] Calcium [Mass/Vol] 9.5 mg/dL 8.5 - 10. 5 mg/dL [facility] Chloride [Moles/Vol] 95 mmol/L Low 98 - 10 9 mmol/L [facility] CO2 [Moles/Vol] 22 mmol/L 22 - 32 mmol/L [facility] Creatinine [Mass/Vol] 0.54 mg/dL Low 0.60 - 1.30 mg/dL [facility] Comment on above: METHOD TRACEABLE TO IDIN STANDARD eGFR (CKD-EPI)non-race dependent - PINF [facility] Comment on above: Reported eGFR is based on the CKD-EPI 2020 equation that does not use a race coefficient. Glucose [Mass/Vol] 193 mg/dL High 65 - 99 mg/dL [facility] Interpretation and review of laboratory results Abnormal [facility] Potassium [Moles/Vol] 3.7 mmol/L 3.5 - 5.0 mmol/L [facility] Sodium [Moles/Vol] 131 mmol/L Low 134 - 146 mmol/L [facility] Urea nitrogen [Mass/Vol] 9 mg/dL 5 - 23 mg/dL [facility] CBC AND AUTO DIFFon 01-29-20 24 ABSOLUTE BASOPHIL 0.1 X10E9/L Normal 0.0-0.2 [facility] Comment on above: Performed By: #### P INR, 85305-3, 4679-7, FEPR, 6793-4, 2132- 9, 2276-4, 2284-8, 2731-8, 97609-5 #### [facility] ([id number]) [address] [place] [address], [address] [place] [address] ABSOLUTE NEUTROPHIL 7.4 X10E9/L High 1.5-6.6 [facility] Comment on above: Performed By: #### P INR, 02513-3, 4679-7, FEPR, 6793-4, 2132- 9, 2276-4, 2284-8, 2731-8, 88843-0 #### [facility] ([id number]) [address], [address] [place] [address] Basophils/100 WBC (Bld) 0.6 % Normal [facility] Comment on above: Performed By: #### P INR, 31951-3, 4679-7, FEPR, 6793-4, 2132- 9, 2276-4, 2284-8, 2731-8, 75504-9 #### [facility] ([id number]) [address], [address] [place] [address] Eosinophils (Bld) [#/Vol] 0.0 10*3/uL Normal 0.0-0.4 [facility] Comment on above: Performed By: #### P INR, 09986-6, 4679-7, FEPR, 6793-4, 2132- 9, 2276-4, 2284-8, 2731-8, 37893-2 #### [facility] ([id number]) [address], [address] [place] [address] Eosinophils/100 WBC (Bld) 0.2 % Normal [facility] Comment on above: Performed By: #### P INR, 14363-7, 4679-7, FEPR, 6793-4, 2132- 9, 2276-4, 2284-8, 2731-8, 82644-7 #### [facility] ([id number]) [address], [address] [place] [address] Erythrocyte distribution width (RBC) [Ratio] 15.6 % High 11.5-15.0 [facility] Comment on above: Performed By: #### P INR, 95079-4, 4679-7, FEPR, 6793-4, 2132- 9, 2276-4, 2284-8, 2731-8, 57068-4 #### [facility] ([id number]) [address], [address] [place] [address] Hematocrit (Bld) [Volume fraction] 33.6 % Low 39-49 [facility] Comment on above: Performed By: #### P INR, 34068-3, 4679-7, FEPR, 6793-4, 2132- 9, 2276-4, 2284-8, 2731-8, 06348-7 #### [facility] ([id number]) [address], [address] [place] [address] Hemoglobin (Bld) [Mass/Vol] 11.9 g/dL Low 13.0-17.0 [facility] Comment on above: Performed By: #### P INR, 55232-7, 4679-7, FEPR, 6793-4, 2132- 9, 2276-4, 2284-8, 2731-8, 37260-8 #### [facility] ([id number]) [address], [address] [place] [address] Lymphocytes (Bld) [#/Vol] 1.4 10*3/uL Normal 1.0-3.5 [facility] Comment on above: Performed By: #### P INR, 70332-7, 4679-7, FEPR, 6793-4, 2132- 9, 2276-4, 2284-8, 2731-8, 40730-8 #### [facility] ([id number]) [address], [address] [place] [address] Lymphocytes/100 WBC (Bld) 14.6 % Normal [facility] Comment on above: Performed By: #### P INR, 85684-7, 4679-7, FEPR, 6793-4, 2132- 9, 2276-4, 2284-8, 2731-8, 48569-1 #### [facility] ([id number]) [address], [address] [place] [address] MCH (RBC) [Entitic mass] 29.0 pg Normal 27-34 [facility] Comment on above: Performed By: #### P INR, 16877-2, 4679-7, FEPR, 6793-4, 2132- 9, 2276-4, 2284-8, 2731-8, 05374-1 #### [facility] ([id number]) [address], [address] [place] [address] MCHC (RBC) [Mass/Vol] 35.5 g/dL Normal 32-36 [facility] Comment on above: Performed By: #### P INR, 27557-6, 4679-7, FEPR, 6793-4, 2132- 9, 2276-4, 2284-8, 2731-8, 12223-8 #### [facility] ([id number]) [address], [address] [place] [address] MCV (RBC) [Entitic vol] 82 fL Normal 80-100 [facility] Comment on above: Performed By: #### P INR, 48804-6, 4679-7, FEPR, 6793-4, 2132- 9, 2276-4, 2284-8, 2731-8, 50695-6 #### [facility] ([id number]) [address], [address] [place] [address] Monocytes (Bld) [#/Vol] 0.6 10*3/uL Normal 0-0.9 [facility] Comment on above: Performed By: #### P INR, 82980-3, 4679-7, FEPR, 6793-4, 2132- 9, 2276-4, 2284-8, 2731-8, 76524-2 #### [facility] ([id number]) [address], [address] [place] [address] Monocytes/100 WBC (Bld) 6.6 % Normal [facility] Comment on above: Performed By: #### P INR, 45947-6, 4679-7, FEPR, 6793-4, 2132- 9, 2276-4, 2284-8, 2731-8, 00509-1 #### [facility] ([id number]) [address], [address] [place] [address] Neutrophils/100 WBC (Bld) 78.0 % Normal [facility] Comment on above: Performed By: #### P INR, 57754-6, 4679-7, FEPR, 6793-4, 2132- 9, 2276-4, 2284-8, 2731-8, 45870-5 #### [facility] ([id number]) [address], [address] [place] [address] Platelet mean volume (Bld) [Entitic vol] 10.1 fL Normal 7-12 [facility] Comment on above: Performed By: #### P INR, 05972-4, 4679-7, FEPR, 6793-4, 2132- 9, 2276-4, 2284-8, 2731-8, 96588-7 #### [facility] ([id number]) [address], [address] [place] [address] Platelets (Bld) [#/Vol] 192 10*3/uL Normal 150-450 [facility] Comment on above: Performed By: #### P INR, 07786-5, 4679-7, FEPR, 6793-4, 2132- 9, 2276-4, 2284-8, 2731-8, 42634-0 #### [facility] ([id number]) [address], [address] [place] [address] RBC COUNT 4.11 X10E12/L Normal 4.10-5.70 [facility] Comment on above: Performed By: #### P INR, 39497-8, 4679-7, FEPR, 6793-4, 2132- 9, 2276-4, 2284-8, 2731-8, 78356-6 #### [facility] ([id number]) [address], [address] [place] [address] WBC (Bld) [#/Vol] 9.5 10*3/uL Normal 4.0-11.0 [facility] Comment on above: Performed By: #### P INR, 86108-5, 4679-7, FEPR, 6793-4, 2132- 9, 2276-4, 2284-8, 2731-8, 15891-5 #### [facility] ([id number]) [address], [address] [place] [address] CBC auto differentialon 01-12-2023 Basophils (Bld) [#/Vol] 0.1 10*3/uL [facility] Basophils/100 WBC (Bld) 0.6 % [facility] Eosinophils (Bld) [#/Vol] 0.0 10*3/uL [facility] Eosinophils/100 WBC (Bld) 0.2 % [facility] Erythrocyte distribution width (RBC) [Ratio] 15.6 % High 11.5 - 15.0 % [facility] Hematocrit (Bld) [Volume fraction] 33.6 % Low 39 - 49 % [facility] Hemoglobin (Bld) [Mass/Vol] 11.9 g/dL Low 13.0 - 17.0 g/dL [facility] Interpretation and review of laboratory results Abnormal [facility] Lymphocytes (Bld) [#/Vol] 1.4 10*3/uL [facility] Lymphocytes/100 WBC (Bld) 14.6 % [facility] MCH (RBC) [Entitic mass] 29.0 pg 27 - 34 pg [facility] MCHC (RBC) [Mass/Vol] 35.5 g/dL 32 - 3 6 g/dL [facility] MCV (RBC) [Entitic vol] 82 fL 80 - 100 fL [facility] Monocytes (Bld) [#/Vol] 0.6 10*3/uL [facility] Monocytes/100 WBC (Bld) 6.6 % [facility] Neutrophils (Bld) [#/Vol] 7.4 10*3/uL High [facility] Neutrophils/100 WBC (Bld) 78.0 % [facility] Platelet mean volume (Bld) [Entitic vol] 10.1 fL 7 - 12 fL [facility] Platelets (Bld) [#/Vol] 192 10*3/uL [facility] RBC (Bld) [#/Vol] 4.11 10*6/uL [facility] WBC corrected for nucl RBC Auto (Bld) [#/Vol] 9.5 [facility] COMPLETE BLOOD COUNTon 01-28 Erythrocyte distribution width (RBC) [Ratio] 15.9 % High 11.5-15.0 [facility] Comment on above: Performed By: #### P INR, 29170-5, 4679-7, FEPR, 6793-4, 2132- 9, 2276-4, 2284-8, 2731-8, 04016-4 #### [facility] ([id number]) [address], [address] [place] [address] Hematocrit (Bld) [Volume fraction] 33.1 % Low 39-49 [facility] Comment on above: Performed By: #### P INR, 56059-6, 4679-7, FEPR, 6793-4, 2132- 9, 2276-4, 2284-8, 2731-8, 01202-7 #### [facility] ([id number]) [address], [address] [place] [address] Hemoglobin (Bld) [Mass/Vol] 11.4 g/dL Low 13.0-17.0 [facility] Comment on above: Performed By: #### P INR, 68327-5, 4679-7, FEPR, 6793-4, 2132- 9, 2276-4, 2284-8, 2731-8, 32708-1 #### [facility] ([id number]) [address], [address] [place] [address] MCH (RBC) [Entitic mass] 28.7 pg Normal 27-34 [facility] Comment on above: Performed By: #### P INR, 31669-8, 4679-7, FEPR, 6793-4, 2132- 9, 2276-4, 2284-8, 2731-8, 74828-8 #### [facility] ([id number]) [address], [address] [place] [address] MCHC (RBC) [Mass/Vol] 34.4 g/dL Normal 32-36 [facility] Comment on above: Performed By: #### P INR, 29443-2, 4679-7, FEPR, 6793-4, 2132- 9, 2276-4, 2284-8, 2731-8, 29409-9 #### [facility] ([id number]) [address], [address] [place] [address] MCV (RBC) [Entitic vol] 83 fL Normal 80-100 [facility] Comment on above: Performed By: #### P INR, 55449-6, 4679-7, FEPR, 6793-4, 2132- 9, 2276-4, 2284-8, 2731-8, 17219-6 #### [facility] ([id number]) [address], [address] [place] [address] Platelet mean volume (Bld) [Entitic vol] 10.8 fL Normal 7-12 [facility] Comment on above: Performed By: #### P INR, 09089-6, 4679-7, FEPR, 6793-4, 2132- 9, 2276-4, 2284-8, 2731-8, 94113-7 #### [facility] ([id number]) [address], [address] [place] [address] Platelets (Bld) [#/Vol] 185 10*3/uL Normal 150-450 [facility] Comment on above: Performed By: #### P INR, 07185-1, 4679-7, FEPR, 6793-4, 2132- 9, 2276-4, 2284-8, 2731-8, 25330-7 #### [facility] ([id number]) [address], [address] [place] [address] RBC COUNT 3.97 X10E12/L Low 4.10-5.70 [facility] Comment on above: Performed By: #### P INR, 88562-3, 4679-7, FEPR, 6793-4, 2132- 9, 2276-4, 2284-8, 2731-8, 01948-6 #### [facility] [facility] ([id number]) [address], [address] [place] [address] WBC (Bld) [#/Vol] 10.2 10*3/uL Normal 4.0-11.0 [facility] Comment on above: Performed By: #### P INR, 38974-6, 4679-7, FEPR, 6793-4, 2132- 9, 2276-4, 2284-8, 2731-8, 49013-3 #### [facility] ([id number]) [address], [address] [place] [address] Cobalamin (Vitamin B12) [Mas s/Vol]on 01-29-2024 [facility] FERRITINon 01-29-2024 Ferritin [Mass/Vol] 220 ng/mL Normal 24-336 [facility] Comment on above: Performed By: #### P INR, 00419-2, 4679-7, FEPR, 6793-4, 2132- 9, 2276-4, 2284-8, 2731-8, 95714-3 #### [facility] ([id number]) [address], [address] [place] [address] Ferritinon 01-29-2024 Ferritin [Mass/Vol] 220 ng/mL 24 - 336 ng/mL [facility] Ferritin [Mass/Vol]on 2023 [facility] Folateon 01-29-2024 Folate [Mass/Vol] 8.4 ng/mL 5.8 - PINF ng/mL [facility] Comment on above: NEW REFERENCE RANGE Folate [Mass/Vol]on 01-29-20 24 [facility] FOLIC ACID 8.4 ng/mL Normal >5.8 [facility] Comment on above: Result Comment: NEW REFERENCE RANGE Performed By: #### P INR, 08587-3, 4679-7, FEPR, 6793-4, 2132-9, 2276-4, 2284-8, 2731-8, 63227-6 #### [facility] ([id number]) [address], [address] [place] [address] Glucose Glucometer (BldC) [M ass/Vol]on 01-29-2024 Glucose [Mass/Vol] 170 mg/dL High 65 - 99 mg/dL [facility] Interpretation and review of laboratory results Abnormal [facility] Glucose [Mass/Vol] 170 mg/dL High 65-99 [facility] Glucose [Mass/Vol] 185 mg/dL High 65 - 99 mg/dL [facility] Interpretation and review of laboratory results Abnormal [facility] Glucose [Mass/Vol] 185 mg/dL High 65-99 [facility] Glucose [Mass/Vol] 204 mg/dL High 65 - 99 mg/dL [facility] Interpretation and review of laboratory results Abnormal [facility] Glucose [Mass/Vol] 204 mg/dL High 65-99 [facility] Glucose [Mass/Vol] 199 mg/dL High 65-99 [facility] IRON PROFILEon 01-29-2024 Iron [Mass/Vol] 17 ug/dL Low 50-212 [facility] Comment on above: Performed By: #### P INR, 02328-1, 4679-7, FEPR, 6793-4, 2132- 9, 2276-4, 2284-8, 2731-8, 12417-6 #### [facility] ([id number]) [address], [address] [place] [address] IRON BINDING 357 ug/dL Normal 250-425 [facility] Comment on above: Performed By: #### P INR, 50588-6, 4679-7, FEPR, 6793-4, 2132- 9, 2276-4, 2284-8, 2731-8, 93284-3 #### [facility] ([id number]) [address], [address] [place] [address] IRON SATURATION 5 % SATURATION Low 20-50 [facility] Comment on above: Performed By: #### P INR, 10079-0, 4679-7, FEPR, 6793-4, 2132- 9, 2276-4, 2284-8, 2731-8, 69152-5 #### [facility] ([id number]) [address], [address] [place] [address] Iron and TIBCon 01-29-2024 Iron [Mass/Vol] 17 ug/dL Low 50 - 212 ug/dL [facility] Iron binding capacity [Mass/Vol] 357 ug/dL 250 - 425 ug/dL [facility] Iron saturation [Mass fraction] 5 Low [facility] No Panel Informationon 01-28 Interpretation and review of laboratory results Abnormal [facility] PROTIME AND INRon 01-29-2024 INR Coag (PPP) [Relative time] 1.4 {INR} High 0.8-1.1 [facility] Comment on above: Performed By: #### P INR, 99093-7, 4679-7, FEPR, 6793-4, 2132- 9, 2276-4, 2284-8, 2731-8, 70575-1 #### [facility] ([id number]) [address], [address] [place] [address] PT Coag (PPP) [Time] 15.6 s High 9.8-13.2 [facility] Comment on above: Performed By: #### P INR, 26563-0, 4679-7, FEPR, 6793-4, 2132- 9, 2276-4, 2284-8, 2731-8, 49627-0 #### [facility] ([id number]) [address], [address] [place] [address] Prealbuminon 01-29-2024 Prealbumin IA [Mass/Vol] 9 mg/dL Low 18 - 45 mg/dL [facility] Prealbumin IA [Mass/Vol]on 0 01-29-2024 Prealbumin [Mass/Vol] 9 mg/dL Low 18-45 [facility] Comment on above: Performed By: #### P INR, 10804-8, 4679-7, FEPR, 6793-4, 2132- 9, 2276-4, 2284-8, 2731-8, 20082-4 #### [facility] ([id number]) [address], [address] [place] [address] Protime & INRon 01-29-2024 INR Coag (PPP) [Relative time] 1.4 {INR} High [facility] Interpretation and review of laboratory results Abnormal [facility] PT Coag (PPP) [Time] 15.6 s High [facility] Reticulocyteson 01-29-2024 Reticulocytes/100 RBC (Bld) 3.9 % High 0.4 - 2.2 % [facility] Reticulocytes/100 RBC (Bld)o n 01-29-2024 Interpretation and review of laboratory results Abnormal [facility] RETICULOCYTE COUNT 3.9 % High 0.4-2.2 [facility] Comment on above: Performed By: #### P INR, 96937-3, 4679-7, FEPR, 6793-4, 2132- 9, 2276-4, 2284-8, 2731-8, 63720-1 #### [facility] ([id number]) [address], [address] [place] [address] Type and screen(includes ind irect yolanda)on 01-29-2024 ABO O [facility] Rh Nom (Bld) Positive [facility] URINALYSISon 01-29-2024 Bilirubin Ql (U) Negative Normal NEG [facility] Comment on above: Performed By: #### P INR, 97759-6, 4679-7, FEPR, 6793-4, 2132- 9, 2276-4, 2284-8, 2731-8, 08796-7 #### [facility] ([id number]) [address], [address] [place] [address] BLOOD/HGB Negative Normal NEG [facility] Comment on above: Performed By: #### P INR, 50124-1, 4679-7, FEPR, 6793-4, 2132- 9, 2276-4, 2284-8, 2731-8, 27504-2 #### [facility] ([id number]) [address], [address] [place] [address] Color (U) YELLOW Normal YELLOW [facility] Comment on above: Performed By: #### P INR, 95201-2, 4679-7, FEPR, 6793-4, 2132- 9, 2276-4, 2284-8, 2731-8, 89427-3 #### [facility] ([id number]) [address], [address] [place] [address] Glucose Ql (U) Negative Normal NEG [facility] Comment on above: Performed By: #### P INR, 86352-7, 4679-7, FEPR, 6793-4, 2132- 9, 2276-4, 2284-8, 2731-8, 85505-8 #### [facility] ([id number]) [address], [address] [place] [address] Ketones Ql (U) Negative Normal NEG [facility] Comment on above: Performed By: #### P INR, 98513-1, 4679-7, FEPR, 6793-4, 2132- 9, 2276-4, 2284-8, 2731-8, 69386-7 #### [facility] ([id number]) [address], [address] [place] [address] Leukocyte esterase Test strip Ql (U) Negative Normal [facility] Comment on above: Performed By: #### P INR, 73508-0, 4679-7, FEPR, 6793-4, 2132- 9, 2276-4, 2284-8, 2731-8, 10021-6 #### [facility] ([id number]) [address], [address] [place] [address] Nitrite Ql (U) Negative Normal NEG [facility] Comment on above: Performed By: #### P INR, 71106-2, 4679-7, FEPR, 6793-4, 2132- 9, 2276-4, 2284-8, 2731-8, 06017-2 #### [facility] ([id number]) [address], [address] [place] [address] pH (U) 6.5 [pH] Normal 5.0-8.5 [facility] Comment on above: Performed By: #### P INR, 61308-2, 4679-7, FEPR, 6793-4, 2132- 9, 2276-4, 2284-8, 2731-8, 16889-4 #### [facility] ([id number]) [address], [address] [place] [address] Protein Ql (U) Negative Normal NEG [facility] Comment on above: Performed By: #### P INR, 09130-0, 4679-7, FEPR, 6793-4, 2132- 9, 2276-4, 2284-8, 2731-8, 80293-2 #### [facility] ([id number]) [address], [address] [place] [address] Specific gravity (U) [Rel density] 1.018 Normal 1.003-1.03 5 [facility] Comment on above: Performed By: #### P INR, 11670-1, 4679-7, FEPR, 6793-4, 2132- 9, 2276-4, 2284-8, 2731-8, 16992-0 #### [facility] ([id number]) [address], [address] [place] [address] TURBIDITY CLEAR Normal CLEAR [facility] Comment on above: Performed By: #### P INR, 85632-7, 4679-7, FEPR, 6793-4, 2132- 9, 2276-4, 2284-8, 2731-8, 07063-0 #### [facility] ([id number]) [address], [address] [place] [address] Urobilinogen Qn (U) 4 {Caroline'U}/dL High <1.1 [facility] Comment on above: Performed By: #### P INR, 66633-7, 4679-7, FEPR, 6793-4, 2132- 9, 2276-4, 2284-8, 2731-8, 12962-8 #### [facility] ([id number]) [address], [address] [place] [address] Urinalysison 01-29-2024 Bilirubin Ql (U) Negative Negative^N egative [facility] Color (U) YELLOW YELLOW^YEL LOW [facility] Glucose (U) [Mass/Vol] Negative Negative^N egative mg/dL [facility] Hemoglobin Auto test strip Ql (U) Negative Negative^N egative [facility] Interpretation and review of laboratory results Abnormal [facility] Ketones (U) [Mass/Vol] Negative Negative^N egative mg/dL [facility] Leukocyte esterase Auto test strip Ql (U) Negative Negative^N egative [facility] Nitrite Auto test strip Ql (U) Negative Negative^N egative [facility] pH (U) 6.5 [pH] 5.0 - 8.5 [facility] Protein (U) [Mass/Vol] Negative Negative^N egative mg/dL [facility] Specific gravity Refractometry automated (U) [Rel density] 1.018 1.003 - 1.035 [facility] Turbidity Ql (U) CLEAR CLEAR^LEANDRA R [facility] Urobilinogen Qn (U) 4 High NINF [facility] VITAMIN B12on 01-29-2024 Cobalamin (Vitamin B12) [Mass/Vol] 307 pg/mL Normal 180-914 [facility] Comment on above: Performed By: #### P INR, 64648-1, 4679-7, FEPR, 6793-4, 2132- 9, 2276-4, 2284-8, 2731-8, 83737-4 #### [facility] ([id number]) [address], [address] [place] [address] Vitamin B12on 01-29-2024 Cobalamin (Vitamin B12) [Mass/Vol] 307 pg/mL 180 - 914 pg/mL [facility] Vitamin D 25 hydroxyon 01-28 Vitamin D+Metabolites [Mass/Vol] 31.7 ng/mL 30 - 100 ng/mL [facility] Comment on above: Vitamin D status 25 [place] Vitamin D Deficiency <20 ng/mL Insufficiency 20-29 ng/mL Sufficiency 30-100 ng/mL Toxicity >100 ng/mL NOTE: A pediatric reference range has not been established by the hair or beauty salon manager of this kit. The [place] [employer] recommends a Vitamin D level of = or >20ng/mL in infants and children. Vitamin D+Metabolites [Mass/ Vol]on 01-29-2024 [facility] VITAMIN D 25 HYD TOT 31.7 ng/mL Normal 30-100 [facility] Comment on above: Result Comment: Vitamin D status 25 [place] Vitamin D Deficiency <20 ng/mL Insufficiency 20-29 ng/mL Sufficiency 30-100 ng/mL Toxicity >100 ng/mL NOTE: A pediatric reference range has not been established by the hair or beauty salon manager of this kit. The [place] [employer] recommends a Vitamin D level of = or >20ng/mL in infants and children. Performed By: #### P INR, 74041-3, 4679-7, FEPR, 6793-4, 2131-9, 2276-4, 2284-8, 2731-8, 50192-2 #### [facility] ([id number]) [address] [place] [address], [address] [place] [address] aPTT Coag (PPP) [Time]on aPTT Coag (Bld) [Time] 29 s Normal 26-37 [facility] Comment on above: Performed By: #### P INR, 60738-0, 4679-7, FEPR, 6793-4, 2132- 9, 2276-4, 2284-8, 2731-8, 25229-6 #### [facility] ([id number]) [address], [address] [place] [address] Glucose Glucometer (BldC) [M ass/Vol]on 01-28-2024 Glucose [Mass/Vol] 194 mg/dL High 65-99 [facility] Glucose [Mass/Vol] 244 mg/dL High 65-99 [facility] Glucose [Mass/Vol] 203 mg/dL High 65-99 [facility] CBC AND AUTO DIFFon 01-27-20 24 ABSOLUTE BASOPHIL 0.0 X10E9/L Normal 0.0-0.2 [facility] Comment on above: Performed By: #### P INR, 03395-9, 4679-7, FEPR, 6793-4, 2132- 9, 2276-4, 2284-8, 2731-8, 41705-3 #### [facility] ([id number]) [address], [address] [place] [address] ABSOLUTE NEUTROPHIL 6.2 X10E9/L Normal 1.5-6.6 [facility] Comment on above: Performed By: #### P INR, 82355-3, 4679-7, FEPR, 6793-4, 2132- 9, 2276-4, 2284-8, 2731-8, 61978-9 #### [facility] ([id number]) [address], [address] [place] [address] Basophils/100 WBC (Bld) 0.5 % Normal [facility] Comment on above: Performed By: #### P INR, 39741-4, 4679-7, FEPR, 6793-4, 2132- 9, 2276-4, 2284-8, 2731-8, 80950-1 #### [facility] ([id number]) [address], [address] [place] [address] Eosinophils (Bld) [#/Vol] 0.0 10*3/uL Normal 0.0-0.4 [facility] Comment on above: Performed By: #### P INR, 13473-4, 4679-7, FEPR, 6793-4, 2132- 9, 2276-4, 2284-8, 2731-8, 95265-7 #### [facility] ([id number]) [address], [address] [place] [address] Eosinophils/100 WBC (Bld) 0.2 % Normal [facility] Comment on above: Performed By: #### P INR, 67791-9, 4679-7, FEPR, 6793-4, 2132- 9, 2276-4, 2284-8, 2731-8, 01784-0 #### [facility] ([id number]) [address], [address] [place] [address] Erythrocyte distribution width (RBC) [Ratio] 16.0 % High 11.5-15.0 [facility] Comment on above: Performed By: #### P INR, 66113-1, 4679-7, FEPR, 6793-4, 2132- 9, 2276-4, 2284-8, 2731-8, 65340-6 #### [facility] ([id number]) [address], [address] [place] [address] Hematocrit (Bld) [Volume fraction] 30.5 % Low 39-49 [facility] Comment on above: Performed By: #### P INR, 05307-1, 4679-7, FEPR, 6793-4, 2132- 9, 2276-4, 2284-8, 2731-8, 84123-7 #### [facility] ([id number]) [address], [address] [place] [address] Hemoglobin (Bld) [Mass/Vol] 10.5 g/dL Low 13.0-17.0 [facility] Comment on above: Performed By: #### P INR, 52430-3, 4679-7, FEPR, 6793-4, 2132- 9, 2276-4, 2284-8, 2731-8, 02389-7 #### [facility] ([id number]) [address], [address] [place] [address] Lymphocytes (Bld) [#/Vol] 1.7 10*3/uL Normal 1.0-3.5 [facility] Comment on above: Performed By: #### P INR, 12211-2, 4679-7, FEPR, 6793-4, 2132- 9, 2276-4, 2284-8, 2731-8, 21798-9 #### [facility] ([id number]) [address], [address] [place] [address] Lymphocytes/100 WBC (Bld) 19.8 % Normal [facility] Comment on above: Performed By: #### P INR, 88786-6, 4679-7, FEPR, 6793-4, 2132- 9, 2276-4, 2284-8, 2731-8, 51043-2 #### [facility] ([id number]) [address], [address] [place] [address] MCH (RBC) [Entitic mass] 28.6 pg Normal 27-34 [facility] Comment on above: Performed By: #### P INR, 17034-2, 4679-7, FEPR, 6793-4, 2132- 9, 2276-4, 2284-8, 2731-8, 81939-7 #### [facility] ([id number]) [address], [address] [place] [address] MCHC (RBC) [Mass/Vol] 34.3 g/dL Normal 32-36 [facility] Comment on above: Performed By: #### P INR, 59757-4, 4679-7, FEPR, 6793-4, 2132- 9, 2276-4, 2284-8, 2731-8, 66306-8 #### [facility] ([id number]) [address], [address] [place] [address] MCV (RBC) [Entitic vol] 83 fL Normal 80-100 [facility] Comment on above: Performed By: #### P INR, 41889-7, 4679-7, FEPR, 6793-4, 2132- 9, 2276-4, 2284-8, 2731-8, 40588-5 #### [facility] ([id number]) [address], [address] [place] [address] Monocytes (Bld) [#/Vol] 0.6 10*3/uL Normal 0-0.9 [facility] Comment on above: Performed By: #### P INR, 71614-4, 4679-7, FEPR, 6793-4, 2132- 9, 2276-4, 2284-8, 2731-8, 11716-4 #### [facility] ([id number]) [address], [address] [place] [address] Monocytes/100 WBC (Bld) 7.2 % Normal [facility] Comment on above: Performed By: #### P INR, 20424-4, 4679-7, FEPR, 6793-4, 2132- 9, 2276-4, 2284-8, 2731-8, 14160-5 #### [facility] ([id number]) [address], [address] [place] [address] Neutrophils/100 WBC (Bld) 72.3 % Normal [facility] Comment on above: Performed By: #### P INR, 54775-4, 4679-7, FEPR, 6793-4, 2132- 9, 2276-4, 2284-8, 2731-8, 54496-0 #### [facility] ([id number]) [address], [address] [place] [address] Platelet mean volume (Bld) [Entitic vol] 10.8 fL Normal 7-12 [facility] Comment on above: Performed By: #### P INR, 40574-9, 4679-7, FEPR, 6793-4, 2132- 9, 2276-4, 2284-8, 2731-8, 20079-6 #### [facility] ([id number]) [address], [address] [place] [address] Platelets (Bld) [#/Vol] 172 10*3/uL Normal 150-450 [facility] Comment on above: Performed By: #### P INR, 37932-8, 4679-7, FEPR, 6793-4, 2132- 9, 2276-4, 2284-8, 2731-8, 96496-0 #### [facility] ([id number]) [address], [address] [place] [address] RBC COUNT 3.66 X10E12/L Low 4.10-5.70 [facility] Comment on above: Performed By: #### P INR, 03957-2, 4679-7, FEPR, 6793-4, 2132- 9, 2276-4, 2284-8, 2731-8, 84481-1 #### [facility] ([id number]) [address], [address] [place] [address] WBC (Bld) [#/Vol] 8.6 10*3/uL Normal 4.0-11.0 [facility] Comment on above: Performed By: #### P INR, 56026-9, 4679-7, FEPR, 6793-4, 2132- 9, 2276-4, 2284-8, 2731-8, 75109-6 #### [facility] ([id number]) [address], [address] [place] [address] CT HIP RT WO CONTon 01-27-[address] HIP RT WO CONT CT [...] Paredes MD on 01/27/2024 10:58 AM Normal [facility] Glucose Glucometer (dC) [M ass/Vol]on 01-27-2024 Glucose [Mass/Vol] 170 mg/dL High 65-99 [facility] Glucose [Mass/Vol] 195 mg/dL High 65-99 [facility] Glucose [Mass/Vol] 225 mg/dL High 65-99 [facility] Glucose [Mass/Vol] 217 mg/dL High 65-99 [facility] XR HIP RT 2-3 VIEWS W OR [...] Porras MD on 01/27/2024 6:44 AM Normal [facility] Glucose Glucometer (BldC) [M ass/Vol]on 01-26-2024 Glucose [Mass/Vol] 310 mg/dL High 65-99 [facility] Glucose [Mass/Vol] 267 mg/dL High 65-99 [facility] Glucose [Mass/Vol] 190 mg/dL High 65-99 [facility] Glucose [Mass/Vol] 221 mg/dL High 65-99 [facility] Glucose [Mass/Vol] 206 mg/dL High 65-99 [facility] BASIC METABOLIC PANLon 01-24 Anion gap [Moles/Vol] 9 mmol/L Normal 5-15 [facility] Comment on above: Performed By: #### P INR, 39205-6, 4679-7, FEPR, 6793-4, 2132- 9, 2276-4, 2284-8, 2731-8, 44105-1 #### [facility] ([id number]) [address], [address] [place] [address] Calcium [Mass/Vol] 9.7 mg/dL Normal 8.5-10.5 [facility] Comment on above: Performed By: #### P INR, 98185-2, 4679-7, FEPR, 6793-4, 2132- 9, 2276-4, 2284-8, 2731-8, 16101-8 #### [facility] ([id number]) [address], [address] [place] [address] Chloride [Moles/Vol] 96 mmol/L Low 98-109 [facility] Comment on above: Performed By: #### P INR, 03771-9, 4679-7, FEPR, 6793-4, 2132- 9, 2276-4, 2284-8, 2731-8, 56774-2 #### [facility] ([id number]) [address], [address] [place] [address] CO2 [Moles/Vol] 29 mmol/L Normal 22-32 [facility] Comment on above: Performed By: #### P INR, 40675-5, 4679-7, FEPR, 6793-4, 2132- 9, 2276-4, 2284-8, 2731-8, 02083-6 #### [facility] ([id number]) [address], [address] [place] [address] Creatinine [Mass/Vol] 0.95 mg/dL Normal 0.60-1.30 [facility] Comment on above: Result Comment: METH OD TRACEABLE TO IDMS STANDARD Performed By: #### P INR, 83102-5, 4679-7, FEPR, 6793-4, 2132-9, 2276-4, 2284-8, 2731-8, 94700-4 #### [facility] ([id number]) [address], [address] [place] [address] eGFR (CKD-EPI) NON-RACE DEPENDENT >90 Normal >59 [facility] Comment on above: Result Comment: Reported eGFR is based on the CKD-EPI 2020 equation that does not use a race coefficient. Performed By: #### P INR, 10933-5, 4679-7, FEPR, 6793-4, 2132-9, 2276-4, 2284-8, 2731-8, 36242-0 #### [facility] ([id number]) [address], [address] [place] [address] Glucose [Mass/Vol] 149 mg/dL High 65-99 [facility] Comment on above: Performed By: #### P INR, 25409-8, 4679-7, FEPR, 6793-4, 2132- 9, 2276-4, 2284-8, 2731-8, 58440-5 #### [facility] ([id number]) [address], [address] [place] [address] Potassium [Moles/Vol] 3.8 mmol/L Normal 3.5-5.0 [facility] Comment on above: Performed By: #### P INR, 87955-8, 4679-7, FEPR, 6793-4, 2132- 9, 2276-4, 2284-8, 2731-8, 93947-3 #### [facility] ([id number]) [address], [address] [place] [address] Sodium [Moles/Vol] 134 mmol/L Normal 134-146 [facility] Comment on above: Performed By: #### P INR, 41298-6, 4679-7, FEPR, 6793-4, 2132- 9, 2276-4, 2284-8, 2731-8, 22686-7 #### [facility] ([id number]) [address], [address] [place] [address] Urea nitrogen [Mass/Vol] 20 mg/dL Normal 5-23 [facility] Comment on above: Performed By: #### P INR, 73696-6, 4679-7, FEPR, 6793-4, 2132- 9, 2276-4, 2284-8, 2731-8, 81980-7 #### [facility] ([id number]) [address], [address] [place] [address] COMPLETE BLOOD COUNTon 01-24 Erythrocyte distribution width (RBC) [Ratio] 16.5 % High 11.5-15.0 [facility] Comment on above: Performed By: #### P INR, 99273-2, 4679-7, FEPR, 6793-4, 2132- 9, 2276-4, 2284-8, 2731-8, 56882-5 #### [facility] ([id number]) [address], [address] [place] [address] Hematocrit (Bld) [Volume fraction] 37.9 % Low 39-49 [facility] Comment on above: Performed By: #### P INR, 22659-1, 4679-7, FEPR, 6793-4, 2132- 9, 2276-4, 2284-8, 2731-8, 84631-3 #### [facility] ([id number]) [address], [address] [place] [address] Hemoglobin (Bld) [Mass/Vol] 13.0 g/dL Normal 13.0-17.0 [facility] Comment on above: Performed By: #### P INR, 51920-6, 4679-7, FEPR, 6793-4, 2132- 9, 2276-4, 2284-8, 2731-8, 93138-4 #### [facility] ([id number]) [address], [address] [place] [address] MCH (RBC) [Entitic mass] 29.0 pg Normal 27-34 [facility] Comment on above: Performed By: #### P INR, 49466-7, 4679-7, FEPR, 6793-4, 2132- 9, 2276-4, 2284-8, 2731-8, 12927-2 #### [facility] ([id number]) [address], [address] [place] [address] MCHC (RBC) [Mass/Vol] 34.2 g/dL Normal 32-36 [facility] Comment on above: Performed By: #### P INR, 75420-7, 4679-7, FEPR, 6793-4, 2132- 9, 2276-4, 2284-8, 2731-8, 16213-2 #### [facility] ([id number]) [address], [address] [place] [address] MCV (RBC) [Entitic vol] 85 fL Normal 80-100 [facility] Comment on above: Performed By: #### P INR, 05305-0, 4679-7, FEPR, 6793-4, 2132- 9, 2276-4, 2284-8, 2731-8, 18975-2 #### [facility] ([id number]) [address], [address] [place] [address] Platelet mean volume (Bld) [Entitic vol] 10.4 fL Normal 7-12 [facility] Comment on above: Performed By: #### P INR, 37506-8, 4679-7, FEPR, 6793-4, 2132- 9, 2276-4, 2284-8, 2731-8, 02950-2 #### [facility] ([id number]) [address], [address] [place] [address] Platelets (Bld) [#/Vol] 135 10*3/uL Low 150-450 [facility] Comment on above: Performed By: #### P INR, 54649-3, 4679-7, FEPR, 6793-4, 2132- 9, 2276-4, 2284-8, 2731-8, 73335-8 #### [facility] ([id number]) [address], [address] [place] [address] RBC COUNT 4.47 X10E12/L Normal 4.10-5.70 [facility] Comment on above: Performed By: #### P INR, 22787-4, 4679-7, FEPR, 6793-4, 2132- 9, 2276-4, 2284-8, 2731-8, 06401-6 #### [facility] ([id number]) [address], [address] [place] [address] WBC (Bld) [#/Vol] 9.4 10*3/uL Normal 4.0-11.0 [facility] Comment on above: Performed By: #### P INR, 59201-5, 4679-7, FEPR, 6793-4, 2132- 9, 2276-4, 2284-8, 2731-8, 97316-9 #### [facility] ([id number]) [address], [address] [place] [address] Glucose Glucometer (BldC) [M ass/Vol]on 01-25-2024 Glucose [Mass/Vol] 155 mg/dL High 65-99 [facility] Glucose [Mass/Vol] 246 mg/dL High 65-99 [facility] Glucose [Mass/Vol] 162 mg/dL High 65-99 [facility] Glucose [Mass/Vol] 163 mg/dL High 65-99 [facility] Glucose Glucometer (BldC) [M ass/Vol]on 01-24-2024 Glucose [Mass/Vol] 113 mg/dL High 65-99 [facility] Glucose [Mass/Vol] 187 mg/dL High 65-99 [facility] Glucose [Mass/Vol] 161 mg/dL High 65-99 [facility] Glucose [Mass/Vol] 152 mg/dL High 65-99 [facility] COMPLETE BLOOD COUNTon 01-22 Erythrocyte distribution width (RBC) [Ratio] 15.9 % High 11.5-15.0 [facility] Comment on above: Performed By: #### P INR, 74052-2, 4679-7, FEPR, 6793-4, 2- 9, 2276-4, 2284-8, 2731-8, 63265-6 #### [facility] ([id number]) [address], [address] [place] [address] Hematocrit (Bld) [Volume fraction] 36.3 % Low 39-49 [facility] Comment on above: Performed By: #### P INR, 79482-2, 4679-7, FEPR, 6793-4, 2132- 9, 2276-4, 2284-8, 2731-8, 37679-0 #### [facility] ([id number]) [address], [address] [place] [address] Hemoglobin (Bld) [Mass/Vol] 12.5 g/dL Low 13.0-17.0 [facility] Comment on above: Performed By: #### P INR, 47849-5, 4679-7, FEPR, 6793-4, 2132- 9, 2276-4, 2284-8, 2731-8, 33225-9 #### [facility] ([id number]) [address], [address] [place] [address] MCH (RBC) [Entitic mass] 28.9 pg Normal 27-34 [facility] Comment on above: Performed By: #### P INR, 90668-7, 4679-7, FEPR, 6793-4, 2132- 9, 2276-4, 2284-8, 2731-8, 66870-5 #### [facility] ([id number]) [address], [address] [place] [address] MCHC (RBC) [Mass/Vol] 34.4 g/dL Normal 32-36 [facility] Comment on above: Performed By: #### P INR, 78747-8, 4679-7, FEPR, 6793-4, 2132- 9, 2276-4, 2284-8, 2731-8, 89107-4 #### [facility] ([id number]) [address], [address] [place] [address] MCV (RBC) [Entitic vol] 84 fL Normal 80-100 [facility] Comment on above: Performed By: #### P INR, 78824-7, 4679-7, FEPR, 6793-4, 2132- 9, 2276-4, 2284-8, 2731-8, 63172-1 #### [facility] ([id number]) [address], [address] [place] [address] Platelet mean volume (Bld) [Entitic vol] 11.5 fL Normal 7-12 [facility] Comment on above: Performed By: #### P INR, 04313-6, 4679-7, FEPR, 6793-4, 2132- 9, 2276-4, 2284-8, 2731-8, 99116-2 #### [facility] ([id number]) [address], [address] [place] [address] Platelets (Bld) [#/Vol] 135 10*3/uL Low 150-450 [facility] Comment on above: Performed By: #### P INR, 50494-2, 4679-7, FEPR, 6793-4, 2132- 9, 2276-4, 2284-8, 2731-8, 04065-1 #### [facility] ([id number]) [address], [address] [place] [address] RBC COUNT 4.34 X10E12/L Normal 4.10-5.70 [facility] Comment on above: Performed By: #### P INR, 49512-5, 4679-7, FEPR, 6793-4, 2132- 9, 2276-4, 2284-8, 2731-8, 76142-5 #### [facility] ([id number]) [address], [address] [place] [address] WBC (Bld) [#/Vol] 7.8 10*3/uL Normal 4.0-11.0 [facility] Comment on above: Performed By: #### P INR, 91012-0, 4679-7, FEPR, 6793-4, 2132- 9, 2276-4, 2284-8, 2731-8, 27838-8 #### [facility] ([id number]) [address], [address] [place] [address] COMPREHENSIVE METABOLIC PANE Benito 01-23-2024 Albumin [Mass/Vol] 4.0 g/dL Normal 3.2-5.3 [facility] Comment on above: Performed By: #### P INR, 66006-7, 4679-7, FEPR, 6793-4, 2132- 9, 2276-4, 2284-8, 2731-8, 03355-5 #### [facility] ([id number]) [address], [address] [place] [address] ALP [Catalytic activity/Vol] 47 U/L Normal 39-130 [facility] Comment on above: Performed By: #### P INR, 38780-9, 4679-7, FEPR, 6793-4, 2132- 9, 2276-4, 2284-8, 2731-8, 26589-6 #### [facility] ([id number]) [address], [address] [place] [address] ALT [Catalytic activity/Vol] 9 U/L Normal 0-40 [facility] Comment on above: Performed By: #### P INR, 64113-1, 4679-7, FEPR, 6793-4, 2132- 9, 2276-4, 2284-8, 2731-8, 29657-7 #### [facility] ([id number]) [address], [address] [place] [address] Anion gap [Moles/Vol] 12 mmol/L Normal 5-15 [facility] Comment on above: Performed By: #### P INR, 46110-1, 4679-7, FEPR, 6793-4, 2132- 9, 2276-4, 2284-8, 2731-8, 57849-5 #### [facility] ([id number]) [address], [address] [place] [address] AST [Catalytic activity/Vol] 21 U/L Normal 0-41 [facility] Comment on above: Performed By: #### P INR, 56708-3, 4679-7, FEPR, 6793-4, 2132- 9, 2276-4, 2284-8, 2731-8, 72376-0 #### [facility] ([id number]) [address], [address] [place] [address] Bilirubin [Mass/Vol] 0.9 mg/dL Normal 0.3-1.2 [facility] Comment on above: Performed By: #### P INR, 19027-7, 4679-7, FEPR, 6793-4, 2132- 9, 2276-4, 2284-8, 2731-8, 81482-8 #### [facility] ([id number]) [address], [address] [place] [address] Calcium [Mass/Vol] 9.3 mg/dL Normal 8.5-10.5 [facility] Comment on above: Performed By: #### P INR, 44951-3, 4679-7, FEPR, 6793-4, 2132- 9, 2276-4, 2284-8, 2731-8, 04120-4 #### [facility] ([id number]) [address], [address] [place] [address] Chloride [Moles/Vol] 99 mmol/L Normal 98-109 [facility] Comment on above: Performed By: #### P INR, 04158-8, 4679-7, FEPR, 6793-4, 2132- 9, 2276-4, 2284-8, 2731-8, 55356-2 #### [facility] ([id number]) [address], [address] [place] [address] CO2 [Moles/Vol] 22 mmol/L Normal 22-32 [facility] Comment on above: Performed By: #### P INR, 50452-5, 4679-7, FEPR, 6793-4, 2132- 9, 2276-4, 2284-8, 2731-8, 26327-5 #### [facility] ([id number]) [address], [address] [place] [address] Creatinine [Mass/Vol] 0.66 mg/dL Normal 0.60-1.30 [facility] Comment on above: Result Comment: METH OD TRACEABLE TO IDMS STANDARD Performed By: #### P INR, 40912-4, 4679-7, FEPR, 6793-4, 2132-9, 2276-4, 2284-8, 2731-8, 82409-2 #### [facility] ([id number]) [address], [address] [place] [address] eGFR (CKD-EPI) NON-RACE DEPENDENT >90 Normal >59 [facility] Comment on above: Result Comment: Reported eGFR is based on the CKD-EPI 2020 equation that does not use a race coefficient. Performed By: #### P INR, 58496-0, 4679-7, FEPR, 6793-4, 2132-9, 2276-4, 2284-8, 2731-8, 89471-9 #### [facility] ([id number]) [address], [address] [place] [address] Glucose [Mass/Vol] 164 mg/dL High 65-99 [facility] Comment on above: Performed By: #### P INR, 87787-8, 4679-7, FEPR, 6793-4, 2132- 9, 2276-4, 2284-8, 2731-8, 78803-6 #### [facility] ([id number]) [address], [address] [place] [address] Potassium [Moles/Vol] 4.0 mmol/L Normal 3.5-5.0 [facility] Comment on above: Performed By: #### P INR, 57070-0, 4679-7, FEPR, 6793-4, 2132- 9, 2276-4, 2284-8, 2731-8, 19025-3 #### [facility] ([id number]) [address], [address] [place] [address] Protein [Mass/Vol] 7.1 g/dL Normal 6.0-8.0 [facility] Comment on above: Performed By: #### P INR, 30068-4, 4679-7, FEPR, 6793-4, 2132- 9, 2276-4, 2284-8, 2731-8, 11402-9 #### [facility] ([id number]) [address], [address] [place] [address] Sodium [Moles/Vol] 133 mmol/L Low 134-146 [facility] Comment on above: Performed By: #### P INR, 77783-0, 4679-7, FEPR, 6793-4, 2132- 9, 2276-4, 2284-8, 2731-8, 63152-8 #### [facility] ([id number]) [address], [address] [place] [address] Urea nitrogen [Mass/Vol] 11 mg/dL Normal 5-23 [facility] Comment on above: Performed By: #### P INR, 07548-1, 4679-7, FEPR, 6793-4, 2132- 9, 2276-4, 2284-8, 2731-8, 09429-7 #### [facility] ([id number]) [address], [address] [place] [address] Glucose Glucometer (BldC) [M ass/Vol]on 01-23-2024 Glucose [Mass/Vol] 171 mg/dL High 65-99 [facility] Glucose [Mass/Vol] 143 mg/dL High 65-99 [facility] Glucose [Mass/Vol] 175 mg/dL High 65-99 [facility] Glucose [Mass/Vol] 169 mg/dL High 65-99 [facility] Glucose [Mass/Vol] 157 mg/dL High 65-99 [facility] BASIC METABOLIC PANLon 01-21 Anion gap [Moles/Vol] 11 mmol/L Normal 5-15 [facility] Comment on above: Performed By: #### P INR, 17031-0, 4679-7, FEPR, 6793-4, 2132- 9, 2276-4, 2284-8, 2731-8, 94748-4 #### [facility] ([id number]) [address], [address] [place] [address] Calcium [Mass/Vol] 9.3 mg/dL Normal 8.5-10.5 [facility] Comment on above: Performed By: #### P INR, 56222-8, 4679-7, FEPR, 6793-4, 2132- 9, 2276-4, 2284-8, 2731-8, 38204-6 #### [facility] ([id number]) [address], [address] [place] [address] Chloride [Moles/Vol] 101 mmol/L Normal 98-109 [facility] Comment on above: Performed By: #### P INR, 92269-8, 4679-7, FEPR, 6793-4, 2132- 9, 2276-4, 2284-8, 2731-8, 75988-2 #### [facility] ([id number]) [address], [address] [place] [address] CO2 [Moles/Vol] 26 mmol/L Normal 22-32 [facility] Comment on above: Performed By: #### P INR, 32179-3, 4679-7, FEPR, 6793-4, 2132- 9, 2276-4, 2284-8, 2731-8, 35924-8 #### [facility] ([id number]) [address], [address] [place] [address] Creatinine [Mass/Vol] 0.62 mg/dL Normal 0.60-1.30 [facility] Comment on above: Result Comment: METH OD TRACEABLE TO IDMS STANDARD Performed By: #### P INR, 20637-2, 4679-7, FEPR, 6793-4, 2132-9, 2276-4, 2284-8, 2731-8, 06661-3 #### [facility] ([id number]) [address], [address] [place] [address] eGFR (CKD-EPI) NON-RACE DEPENDENT >90 Normal >59 [facility] Comment on above: Result Comment: Reported eGFR is based on the CKD-EPI 2020 equation that does not use a race coefficient. Performed By: #### P INR, 87154-1, 4679-7, FEPR, 6793-4, 2132-9, 2276-4, 2284-8, 2731-8, 26358-0 #### [facility] ([id number]) [address], [address] [place] [address] Glucose [Mass/Vol] 150 mg/dL High 65-99 [facility] Comment on above: Performed By: #### P INR, 42003-5, 4679-7, FEPR, 6793-4, 2132- 9, 2276-4, 2284-8, 2731-8, 44695-1 #### [facility] ([id number]) [address], [address] [place] [address] Potassium [Moles/Vol] 4.0 mmol/L Normal 3.5-5.0 [facility] Comment on above: Performed By: #### P INR, 82543-3, 4679-7, FEPR, 6793-4, 2132- 9, 2276-4, 2284-8, 2731-8, 23073-0 #### [facility] ([id number]) [address], [address] [place] [address] Sodium [Moles/Vol] 138 mmol/L Normal 134-146 [facility] Comment on above: Performed By: #### P INR, 91797-3, 4679-7, FEPR, 6793-4, 2132- 9, 2276-4, 2284-8, 2731-8, 66768-4 #### [facility] ([id number]) [address], [address] [place] [address] Urea nitrogen [Mass/Vol] 12 mg/dL Normal 5-23 [facility] Comment on above: Performed By: #### P INR, 09352-6, 4679-7, FEPR, 6793-4, 2132- 9, 2276-4, 2284-8, 2731-8, 31806-4 #### [facility] ([id number]) [address] [place] [address] Basic Metabolic Panelon 01-12 Anion gap [Moles/Vol] 11 mmol/L 5 - 15 mmol/L [facility] Calcium [Mass/Vol] 9.3 mg/dL 8.5 - 10. 5 mg/dL [facility] Chloride [Moles/Vol] 101 mmol/L 98 - 10 9 mmol/L [facility] CO2 [Moles/Vol] 26 mmol/L 22 - 32 mmol/L [facility] Creatinine [Mass/Vol] 0.62 mg/dL 0.60 - 1.30 mg/dL [facility] Comment on above: METHOD TRACEABLE TO IDIN STANDARD eGFR (CKD-EPI)non-race dependent - PINF [facility] Comment on above: Reported eGFR is based on the CKD-EPI 2020 equation that does not use a race coefficient. Glucose [Mass/Vol] 150 mg/dL High 65 - 99 mg/dL [facility] Interpretation and review of laboratory results Abnormal [facility] Potassium [Moles/Vol] 4.0 mmol/L 3.5 - 5.0 mmol/L [facility] Sodium [Moles/Vol] 138 mmol/L 134 - 146 mmol/L [facility] Urea nitrogen [Mass/Vol] 12 mg/dL 5 - 23 mg/dL [facility] CBC AND AUTO DIFFon 01-22-20 ABSOLUTE BASOPHIL 0.0 X10E9/L Normal 0.0-0.2 [facility] Comment on above: Performed By: #### P INR, 14430-5, 4679-7, FEPR, 6793-4, 2132- 9, 2276-4, 2284-8, 2731-8, 68247-3 #### [facility] ([id number]) [address], [address] [place] [address] ABSOLUTE NEUTROPHIL 4.1 X10E9/L Normal 1.5-6.6 [facility] Comment on above: Performed By: #### P INR, 06336-5, 4679-7, FEPR, 6793-4, 2132- 9, 2276-4, 2284-8, 2731-8, 17733-9 #### [facility] ([id number]) [address], [address] [place] [address] Basophils/100 WBC (Bld) 0.7 % Normal [facility] Comment on above: Performed By: #### P INR, 34273-2, 4679-7, FEPR, 6793-4, 2132- 9, 2276-4, 2284-8, 2731-8, 86479-7 #### [facility] ([id number]) [address], [address] [place] [address] Eosinophils (Bld) [#/Vol] 0.0 10*3/uL Normal 0.0-0.4 [facility] Comment on above: Performed By: #### P INR, 77045-2, 4679-7, FEPR, 6793-4, 2132- 9, 2276-4, 2284-8, 2731-8, 72917-0 #### [facility] ([id number]) [address], [address] [place] [address] Eosinophils/100 WBC (Bld) 0.7 % Normal [facility] Comment on above: Performed By: #### P INR, 45413-8, 4679-7, FEPR, 6793-4, 2132- 9, 2276-4, 2284-8, 2731-8, 39650-0 #### [facility] ([id number]) [address], [address] [place] [address] Erythrocyte distribution width (RBC) [Ratio] 16.3 % High 11.5-15.0 [facility] Comment on above: Performed By: #### P INR, 45597-7, 4679-7, FEPR, 6793-4, 2132- 9, 2276-4, 2284-8, 2731-8, 86644-0 #### [facility] ([id number]) [address], [address] [place] [address] Hematocrit (Bld) [Volume fraction] 33.7 % Low 39-49 [facility] Comment on above: Performed By: #### P INR, 66572-3, 4679-7, FEPR, 6793-4, 2132- 9, 2276-4, 2284-8, 2731-8, 81213-9 #### [facility] ([id number]) [address], [address] [place] [address] Hemoglobin (Bld) [Mass/Vol] 11.8 g/dL Low 13.0-17.0 [facility] Comment on above: Performed By: #### P INR, 97578-8, 4679-7, FEPR, 6793-4, 2132- 9, 2276-4, 2284-8, 2731-8, 03886-8 #### [facility] ([id number]) [address], [address] [place] [address] Lymphocytes (Bld) [#/Vol] 1.4 10*3/uL Normal 1.0-3.5 [facility] Comment on above: Performed By: #### P INR, 09811-2, 4679-7, FEPR, 6793-4, 2132- 9, 2276-4, 2284-8, 2731-8, 56329-5 #### [facility] ([id number]) [address], [address] [place] [address] Lymphocytes/100 WBC (Bld) 23.1 % Normal [facility] Comment on above: Performed By: #### P INR, 03665-3, 4679-7, FEPR, 6793-4, 2132- 9, 2276-4, 2284-8, 2731-8, 55532-4 #### [facility] ([id number]) [address], [address] [place] [address] MCH (RBC) [Entitic mass] 29.5 pg Normal 27-34 [facility] Comment on above: Performed By: #### P INR, 93813-4, 4679-7, FEPR, 6793-4, 2132- 9, 2276-4, 2284-8, 2731-8, 27518-4 #### [facility] ([id number]) [address] [place] [address] MCHC (RBC) [Mass/Vol] 34.9 g/dL Normal 32-36 [facility] Comment on above: Performed By: #### P INR, 97955-1, 4679-7, FEPR, 6793-4, 2132- 9, 2276-4, 2284-8, 2731-8, 88293-7 #### [facility] ([id number]) [address], [address] [place] [address] MCV (RBC) [Entitic vol] 85 fL Normal 80-100 [facility] Comment on above: Performed By: #### P INR, 93864-1, 4679-7, FEPR, 6793-4, 2132- 9, 2276-4, 2284-8, 2731-8, 52631-0 #### [facility] ([id number]) [address] [place] [address] Monocytes (Bld) [#/Vol] 0.6 10*3/uL Normal 0-0.9 [facility] Comment on above: Performed By: #### P INR, 94853-7, 4679-7, FEPR, 6793-4, 2132- 9, 2276-4, 2284-8, 2731-8, 68444-0 #### [facility] ([id number]) [address], [address] [place] [address] Monocytes/100 WBC (Bld) 10.1 % Normal [facility] Comment on above: Performed By: #### P INR, 14450-9, 4679-7, FEPR, 6793-4, 2132- 9, 2276-4, 2284-8, 2731-8, 02176-5 #### [facility] ([id number]) [address], [address] [place] [address] Neutrophils/100 WBC (Bld) 65.4 % Normal [facility] Comment on above: Performed By: #### P INR, 02781-6, 4679-7, FEPR, 6793-4, 2132- 9, 2276-4, 2284-8, 2731-8, 44962-9 #### [facility] ([id number]) [address], [address] [place] [address] Platelet mean volume (Bld) [Entitic vol] 10.7 fL Normal 7-12 [facility] Comment on above: Performed By: #### P INR, 93185-5, 4679-7, FEPR, 6793-4, 2132- 9, 2276-4, 2284-8, 2731-8, 37364-6 #### [facility] ([id number]) [address], [address] [place] [address] Platelets (Bld) [#/Vol] 113 10*3/uL Low 150-450 [facility] Comment on above: Performed By: #### P INR, 72621-0, 4679-7, FEPR, 6793-4, 2132- 9, 2276-4, 2284-8, 2731-8, 59107-3 #### [facility] ([id number]) [address], [address] [place] [address] RBC COUNT 3.99 X10E12/L Low 4.10-5.70 [facility] Comment on above: Performed By: #### P INR, 32299-1, 4679-7, FEPR, 6793-4, 2132- 9, 2276-4, 2284-8, 2731-8, 06372-5 #### [facility] ([id number]) [address], [address] [place] [address] WBC (Bld) [#/Vol] 6.2 10*3/uL Normal 4.0-11.0 [facility] Comment on above: Performed By: #### P INR, 84965-0, 4679-7, FEPR, 6793-4, 2132- 9, 2276-4, 2284-8, 2731-8, 02675-7 #### [facility] ([id number]) [address] [place] [address] CBC auto differentialon 01-12 Basophils (Bld) [#/Vol] 0.0 10*3/uL [facility] Basophils/100 WBC (Bld) 0.7 % [facility] Eosinophils (Bld) [#/Vol] 0.0 10*3/uL [facility] Eosinophils/100 WBC (Bld) 0.7 % [facility] Erythrocyte distribution width (RBC) [Ratio] 16.3 % High 11.5 - 15.0 % [facility] Hematocrit (Bld) [Volume fraction] 33.7 % Low 39 - 49 % [facility] Hemoglobin (Bld) [Mass/Vol] 11.8 g/dL Low 13.0 - 17.0 g/dL [facility] Interpretation and review of laboratory results Abnormal [facility] Lymphocytes (Bld) [#/Vol] 1.4 10*3/uL [facility] Lymphocytes/100 WBC (Bld) 23.1 % [facility] MCH (RBC) [Entitic mass] 29.5 pg 27 - 34 pg [facility] MCHC (RBC) [Mass/Vol] 34.9 g/dL 32 - 3 6 g/dL [facility] MCV (RBC) [Entitic vol] 85 fL 80 - 100 fL [facility] Monocytes (Bld) [#/Vol] 0.6 10*3/uL [facility] Monocytes/100 WBC (Bld) 10.1 % [facility] Neutrophils (Bld) [#/Vol] 4.1 10*3/uL [facility] Neutrophils/100 WBC (Bld) 65.4 % [facility] Platelet mean volume (Bld) [Entitic vol] 10.7 fL 7 - 12 fL [facility] Platelets (Bld) [#/Vol] 113 10*3/uL Low [facility] RBC (Bld) [#/Vol] 3.99 10*6/uL Low [facility] WBC corrected for nucl RBC Auto (Bld) [#/Vol] 6.2 [facility] Glucose Glucometer (BldC) [M ass/Vol]on 01-22-2024 Glucose [Mass/Vol] 139 mg/dL High 65-99 [facility] Glucose [Mass/Vol] 139 mg/dL High 65 - 99 mg/dL [facility] Interpretation and review of laboratory results Abnormal [facility] Glucose [Mass/Vol] 139 mg/dL High 65-99 [facility] Glucose [Mass/Vol] 138 mg/dL High 65 - 99 mg/dL [facility] Interpretation and review of laboratory results Abnormal [facility] Glucose [Mass/Vol] 138 mg/dL High 65-99 [facility] Glucose [Mass/Vol] 135 mg/dL High 65 - 99 mg/dL [facility] Interpretation and review of laboratory results Abnormal [facility] Glucose [Mass/Vol] 135 mg/dL High 65-99 [facility] MAGNESIUMon 01-22-2024 Magnesium [Mass/Vol] 1.4 mg/dL Low 1.8-2.6 [facility] Comment on above: Performed By: #### P INR, 71061-6, 4679-7, FEPR, 6793-4, 2132- 9, 2276-4, 2284-8, 2731-8, 61656-1 #### [facility] ([id number]) [address], [address] [place] [address] Magnesiumon 01-22-2024 Magnesium [Mass/Vol] 1.4 mg/dL Low 1.8 - 2 .6 mg/dL [facility] Magnesium [Mass/Vol]on 01-21 Interpretation and review of laboratory results Abnormal [facility] BASIC METABOLIC PANLon 01-20 Anion gap [Moles/Vol] 12 mmol/L Normal 5-15 [facility] Comment on above: Performed By: #### P INR, 18258-4, 4679-7, FEPR, 6793-4, 2132- 9, 2276-4, 2284-8, 2731-8, 42343-7 #### [facility] ([id number]) [address], [address] [place] [address] Calcium [Mass/Vol] 9.4 mg/dL Normal 8.5-10.5 [facility] Comment on above: Performed By: #### P INR, 60053-1, 4679-7, FEPR, 6793-4, 2132- 9, 2276-4, 2284-8, 2731-8, 41620-2 #### [facility] ([id number]) [address], [address] [place] [address] Chloride [Moles/Vol] 99 mmol/L Normal 98-109 [facility] Comment on above: Performed By: #### P INR, 26339-7, 4679-7, FEPR, 6793-4, 2132- 9, 2276-4, 2284-8, 2731-8, 20137-4 #### [facility] ([id number]) [address], [address] [place] [address] CO2 [Moles/Vol] 26 mmol/L Normal 22-32 [facility] Comment on above: Performed By: #### P INR, 24973-2, 4679-7, FEPR, 6793-4, 2132- 9, 2276-4, 2284-8, 2731-8, 97265-8 #### [facility] ([id number]) [address], [address] [place] [address] Creatinine [Mass/Vol] 0.71 mg/dL Normal 0.60-1.30 [facility] Comment on above: Result Comment: METH OD TRACEABLE TO IDMS STANDARD Performed By: #### P INR, 62990-8, 4679-7, FEPR, 6793-4, 2132-9, 2276-4, 2284-8, 2731-8, 34750-1 #### [facility] ([id number]) [address], [address] [place] [address] eGFR (CKD-EPI) NON-RACE DEPENDENT >90 Normal >59 [facility] Comment on above: Result Comment: Reported eGFR is based on the CKD-EPI 2020 equation that does not use a race coefficient. Performed By: #### P INR, 41356-8, 4679-7, FEPR, 6793-4, 2132-9, 2276-4, 2284-8, 2731-8, 60873-6 #### [facility] ([id number]) [address], [address] [place] [address] Glucose [Mass/Vol] 153 mg/dL High 65-99 [facility] Comment on above: Performed By: #### P INR, 47278-5, 4679-7, FEPR, 6793-4, 2132- 9, 2276-4, 2284-8, 2731-8, 51584-4 #### [facility] ([id number]) [address], [address] [place] [address] Potassium [Moles/Vol] 4.7 mmol/L Normal 3.5-5.0 [facility] Comment on above: Result Comment: SPEC IMEN HEMOLYZED, RESULTS INCREASED MARKEDLY HEMOLYZED Performed By: #### P INR, 83847-6, 4679-7, FEPR, 6793-4, 2132-9, 2276-4, 2284-8, 2731-8, 85724-5 #### [facility] ([id number]) [address], [address] [place] [address] Sodium [Moles/Vol] 137 mmol/L Normal 134-146 [facility] Comment on above: Result Comment: RESU LTS QUESTIONABLE DUE TO HEMOLYSIS MARKEDLY HEMOLYZED Performed By: #### P INR, 63957-0, 4679-7, FEPR, 6793-4, 2132-9, 2276-4, 2284-8, 2731-8, 47550-2 #### [facility] ([id number]) [address], [address] [place] [address] Urea nitrogen [Mass/Vol] 13 mg/dL Normal 5-23 [facility] Comment on above: Performed By: #### P INR, 96071-0, 4679-7, FEPR, 6793-4, 2132- 9, 2276-4, 2284-8, 2731-8, 75692-7 #### [facility] ([id number]) [address], [address] [place] [address] Basic Metabolic Panelon 06-0 Anion gap [Moles/Vol] 12 mmol/L 5 - 15 mmol/L [facility] Calcium [Mass/Vol] 9.4 mg/dL 8.5 - 10. 5 mg/dL [facility] Chloride [Moles/Vol] 99 mmol/L 98 - 10 9 mmol/L [facility] CO2 [Moles/Vol] 26 mmol/L 22 - 32 mmol/L [facility] Creatinine [Mass/Vol] 0.71 mg/dL 0.60 - 1.30 mg/dL [facility] Comment on above: METHOD TRACEABLE TO IDMS STANDARD eGFR (CKD-EPI)non-race dependent - PINF [facility] Comment on above: Reported eGFR is based on the CKD-EPI 2020 equation that does not use a race coefficient. Glucose [Mass/Vol] 153 mg/dL High 65 - 99 mg/dL [facility] Interpretation and review of laboratory results Abnormal [facility] Potassium [Moles/Vol] 4.7 mmol/L 3.5 - 5.0 mmol/L [facility] Comment on above: SPECIMEN HEMOLYZED, RESULTS INCREASED MARKEDLY HEMOLYZED Sodium [Moles/Vol] 137 mmol/L 134 - 146 mmol/L [facility] Comment on above: RESULTS QUESTIONABLE DUE TO HEMOLYSIS MARKEDLY HEMOLYZED Urea nitrogen [Mass/Vol] 13 mg/dL 5 - 23 mg/dL [facility] CBC AND AUTO DIFFon 01-21-20 24 ABSOLUTE BASOPHIL 0.0 X10E9/L Normal 0.0-0.2 [facility] Comment on above: Performed By: #### P INR, 37148-1, 4679-7, FEPR, 6793-4, 2132- 9, 2276-4, 2284-8, 2731-8, 57373-0 #### [facility] ([id number]) [address], [address] [place] [address] ABSOLUTE NEUTROPHIL 4.9 X10E9/L Normal 1.5-6.6 [facility] Comment on above: Performed By: #### P INR, 02188-1, 4679-7, FEPR, 6793-4, 2132- 9, 2276-4, 2284-8, 2731-8, 63150-1 #### [facility] ([id number]) [address], [address] [place] [address] Basophils/100 WBC (Bld) 0.7 % Normal [facility] Comment on above: Performed By: #### P INR, 89248-7, 4679-7, FEPR, 6793-4, 2132- 9, 2276-4, 2284-8, 2731-8, 27607-3 #### [facility] ([id number]) [address], [address] [place] [address] Eosinophils (Bld) [#/Vol] 0.1 10*3/uL Normal 0.0-0.4 [facility] Comment on above: Performed By: #### P INR, 48706-6, 4679-7, FEPR, 6793-4, 2132- 9, 2276-4, 2284-8, 2731-8, 24387-2 #### [facility] ([id number]) [address], [facility] [address] [place] [address] Eosinophils/100 WBC (Bld) 1.1 % Normal [facility] Comment on above: Performed By: #### P INR, 88650-8, 4679-7, FEPR, 6793-4, 2132- 9, 2276-4, 2284-8, 2731-8, 79959-6 #### [facility] ([id number]) [address] [address] Erythrocyte distribution width (RBC) [Ratio] 16.6 % High 11.5-15.0 [facility] Comment on above: Performed By: #### P INR, 39673-5, 4679-7, FEPR, 6793-4, 2132- 9, 2276-4, 2284-8, 2731-8, 12346-3 #### [facility] ([id number]) [address], [address] [address] Hematocrit (Bld) [Volume fraction] 34.9 % Low 39-49 [facility] Comment on above: Performed By: #### P INR, 18117-0, 4679-7, FEPR, 6793-4, 2132- 9, 2276-4, 2284-8, 2731-8, 98781-7 #### [facility] ([id number]) [address], [address] [place] [address] Hemoglobin (Bld) [Mass/Vol] 11.8 g/dL Low 13.0-17.0 [facility] Comment on above: Performed By: #### P INR, 49799-6, 4679-7, FEPR, 6793-4, 2132- 9, 2276-4, 2284-8, 2731-8, 39318-5 #### [facility] ([id number]) [address], [address] [place] [address] Lymphocytes (Bld) [#/Vol] 1.3 10*3/uL Normal 1.0-3.5 [facility] Comment on above: Performed By: #### P INR, 15419-2, 4679-7, FEPR, 6793-4, 2132- 9, 2276-4, 2284-8, 2731-8, 09018-6 #### [facility] ([id number]) [address], [address] [place] [address] Lymphocytes/100 WBC (Bld) 18.8 % Normal [facility] Comment on above: Performed By: #### P INR, 54372-1, 4679-7, FEPR, 6793-4, 2132- 9, 2276-4, 2284-8, 2731-8, 85559-8 #### [facility] ([id number]) [address], [address] [place] [address] MCH (RBC) [Entitic mass] 29.0 pg Normal 27-34 [facility] Comment on above: Performed By: #### P INR, 12366-6, 4679-7, FEPR, 6793-4, 2132- 9, 2276-4, 2284-8, 2731-8, 18845-5 #### [facility] ([id number]) [address], [address] [place] [address] MCHC (RBC) [Mass/Vol] 33.8 g/dL Normal 32-36 [facility] Comment on above: Performed By: #### P INR, 34197-0, 4679-7, FEPR, 6793-4, 2132- 9, 2276-4, 2284-8, 2731-8, 73021-5 #### [facility] ([id number]) [address], [address] [place] [address] MCV (RBC) [Entitic vol] 86 fL Normal 80-100 [facility] Comment on above: Performed By: #### P INR, 24551-9, 4679-7, FEPR, 6793-4, 2132- 9, 2276-4, 2284-8, 2731-8, 08305-2 #### [facility] ([id number]) [address], [address] [place] [address] Monocytes (Bld) [#/Vol] 0.6 10*3/uL Normal 0-0.9 [facility] Comment on above: Performed By: #### P INR, 55971-7, 4679-7, FEPR, 6793-4, 2132- 9, 2276-4, 2284-8, 2731-8, 61658-1 #### [facility] ([id number]) [address], [address] [place] [address] Monocytes/100 WBC (Bld) 8.4 % Normal [facility] Comment on above: Performed By: #### P INR, 44298-5, 4679-7, FEPR, 6793-4, 2132- 9, 2276-4, 2284-8, 2731-8, 08397-3 #### [facility] ([id number]) [address], [address] [place] [address] Neutrophils/100 WBC (Bld) 71.0 % Normal [facility] Comment on above: Performed By: #### P INR, 27898-5, 4679-7, FEPR, 6793-4, 2132- 9, 2276-4, 2284-8, 2731-8, 54384-4 #### [facility] ([id number]) [address], [address] [place] [address] Platelet mean volume (Bld) [Entitic vol] 11.4 fL Normal 7-12 [facility] Comment on above: Performed By: #### P INR, 14262-7, 4679-7, FEPR, 6793-4, 2132- 9, 2276-4, 2284-8, 2731-8, 93633-2 #### [facility] ([id number]) [address], [address] [place] [address] Platelets (Bld) [#/Vol] 129 10*3/uL Low 150-450 [facility] Comment on above: Performed By: #### P INR, 85546-6, 4679-7, FEPR, 6793-4, 2132- 9, 2276-4, 2284-8, 2731-8, 67024-9 #### [facility] ([id number]) [address], [address] [place] [address] RBC COUNT 4.07 X10E12/L Low 4.10-5.70 [facility] Comment on above: Performed By: #### P INR, 51550-2, 4679-7, FEPR, 6793-4, 2132- 9, 2276-4, 2284-8, 2731-8, 87901-1 #### [facility] ([id number]) [address], [address] [place] [address] WBC (Bld) [#/Vol] 6.9 10*3/uL Normal 4.0-11.0 [facility] Comment on above: Performed By: #### P INR, 04350-9, 4679-7, FEPR, 6793-4, 2132- 9, 2276-4, 2284-8, 2731-8, 61883-9 #### [facility] ([id number]) [address], [address] [place] [address] CBC auto differentialon 06-0 -2023 Basophils (Bld) [#/Vol] 0.0 10*3/uL [facility] Basophils/100 WBC (Bld) 0.7 % [facility] Eosinophils (Bld) [#/Vol] 0.1 10*3/uL [facility] Eosinophils/100 WBC (Bld) 1.1 % [facility] Erythrocyte distribution width (RBC) [Ratio] 16.6 % High 11.5 - 15.0 % [facility] Hematocrit (Bld) [Volume fraction] 34.9 % Low 39 - 49 % [facility] Hemoglobin (Bld) [Mass/Vol] 11.8 g/dL Low 13.0 - 17.0 g/dL [facility] Interpretation and review of laboratory results Abnormal [facility] Lymphocytes (Bld) [#/Vol] 1.3 10*3/uL [facility] Lymphocytes/100 WBC (Bld) 18.8 % [facility] MCH (RBC) [Entitic mass] 29.0 pg 27 - 34 pg [facility] MCHC (RBC) [Mass/Vol] 33.8 g/dL 32 - 3 6 g/dL [facility] MCV (RBC) [Entitic vol] 86 fL 80 - 100 fL [facility] Monocytes (Bld) [#/Vol] 0.6 10*3/uL [facility] Monocytes/100 WBC (Bld) 8.4 % [facility] Neutrophils (Bld) [#/Vol] 4.9 10*3/uL [facility] Neutrophils/100 WBC (Bld) 71.0 % [facility] Platelet mean volume (Bld) [Entitic vol] 11.4 fL 7 - 12 fL [facility] Platelets (Bld) [#/Vol] 129 10*3/uL Low [facility] RBC (Bld) [#/Vol] 4.07 10*6/uL Low [facility] WBC corrected for nucl RBC Auto (Bld) [#/Vol] 6.9 [facility] Glucose Glucometer (BldC) [M ass/Vol]on 01-21-2024 Glucose [Mass/Vol] 223 mg/dL High 65 - 99 mg/dL [facility] Interpretation and review of laboratory results Abnormal [facility] Glucose [Mass/Vol] 223 mg/dL High 65-99 [facility] Glucose [Mass/Vol] 169 mg/dL High 65 - 99 mg/dL [facility] Interpretation and review of laboratory results Abnormal [facility] Glucose [Mass/Vol] 169 mg/dL High 65-99 [facility] Glucose [Mass/Vol] 151 mg/dL High 65 - 99 mg/dL [facility] Interpretation and review of laboratory results Abnormal [facility] Glucose [Mass/Vol] 151 mg/dL High 65-99 [facility] Glucose [Mass/Vol] 147 mg/dL High 65 - 99 mg/dL [facility] Interpretation and review of laboratory results Abnormal [facility] Glucose [Mass/Vol] 147 mg/dL High 65-99 [facility] MAGNESIUMon 01-21-2024 Magnesium [Mass/Vol] 1.7 mg/dL Low 1.8-2.6 [facility] Comment on above: Result Comment: SPEC IMEN HEMOLYZED, RESULTS INCREASED MARKEDLY HEMOLYZED Performed By: #### P INR, 77284-1, 4679-7, FEPR, 6793-4, 2132-9, 2276-4, 2284-8, 2731-8, 51920-0 #### [facility] ([id number]) [address] [facility], [address] [place] [address] Magnesiumon 01-21-2024 Magnesium [Mass/Vol] 1.7 mg/dL Low 1.8 - 2 .6 mg/dL [facility] Comment on above: SPECIMEN HEMOLYZED, RESULTS INCREASED MARKEDLY HEMOLYZED Magnesium [Mass/Vol]on 01-20 Interpretation and review of laboratory results Abnormal [facility] XR HIP RT 2-3 VIEWS W OR [...] Paredes MD on 01/21/2024 3:06 PM Normal [facility] XR Pelvis and Hip - right 2 Viewson 01-21-2024 XR HIP RT 2-3 VIEWS W OR WO PELVIS Clinical history:increasing pain - recent IMN right hip right hip pain Comparison: 01/18/2024 Impression: Stable postoperative changes and alignment with right proximal femoral intramedullary kateryna. No new or acute process. Finalized by Marc Paredes MD on 01/21/2024 3:06 PM Marc Sanchez MD - 01/21/2024 XR HIP RT 2-3 VIEWS W OR WO PELVIS Clinical history:increasing pain - recent IMN right hip right hip pain Comparison: 01/18/2024 Impression: Stable postoperative changes and alignment with right proximal femoral intramedullary kateryna. No new or acute process. Finalized by Marc Paredes MD on 01/21/2024 3:06 PM [facility] Radiology Study observation (narrative) [facility] XR Pelvis and Hip - right 2 ViewsOrdered By: Marc Paredes on 01-21-2024 [facility] Work Phone: BASIC METABOLIC PANLon 01-19 Anion gap [Moles/Vol] 10 mmol/L Normal 5-15 [facility] Comment on above: Performed By: #### P INR, 81472-4, 4679-7, FEPR, 6793-4, 2132- 9, 2276-4, 2284-8, 2731-8, 80492-0 #### [facility] ([id number]) [address], [address] [place] [address] Calcium [Mass/Vol] 8.8 mg/dL Normal 8.5-10.5 [facility] Comment on above: Performed By: #### P INR, 70759-1, 4679-7, FEPR, 6793-4, 2132- 9, 2276-4, 2284-8, 2731-8, 24760-7 #### [facility] ([id number]) [address] [facility], [address] [place] [address] Chloride [Moles/Vol] 102 mmol/L Normal 98-109 [facility] Comment on above: Performed By: #### P INR, 31763-2, 4679-7, FEPR, 6793-4, 2132- 9, 2276-4, 2284-8, 2731-8, 30837-1 #### [facility] ([id number]) [address] [facility] [facility], [address] [place] [address] CO2 [Moles/Vol] 24 mmol/L Normal 22-32 [facility] Comment on above: Performed By: #### P INR, 41708-5, 4679-7, FEPR, 6793-4, 2132- 9, 2276-4, 2284-8, 2731-8, 29076-4 #### [facility] ([id number]) [facility] [facility], [address] [place] [address] Creatinine [Mass/Vol] 0.64 mg/dL Normal 0.60-1.30 [facility] Comment on above: Result Comment: METH OD TRACEABLE TO IDMS STANDARD Performed By: #### P INR, 29149-2, 4679-7, FEPR, 6793-4, 2132-9, 2276-4, 2284-8, 2731-8, 43894-8 #### [facility] ([id number]) [address] [facility], [address] [place] [address] eGFR (CKD-EPI) NON-RACE DEPENDENT >90 Normal >59 [facility] Comment on above: Result Comment: Reported eGFR is based on the CKD-EPI 2020 equation that does not use a race coefficient. Performed By: #### P INR, 48050-1, 4679-7, FEPR, 6793-4, 2132-9, 2276-4, 2284-8, 2731-8, 90304-2 #### [facility] ([id number]) [address], [address] [place] [address] Glucose [Mass/Vol] 119 mg/dL High 65-99 [facility] Comment on above: Performed By: #### P INR, 07584-0, 4679-7, FEPR, 6793-4, 2132- 9, 2276-4, 2284-8, 2731-8, 54467-7 #### [facility] ([id number]) [address], [address] [place] [address] Potassium [Moles/Vol] 4.3 mmol/L Normal 3.5-5.0 [facility] Comment on above: Performed By: #### P INR, 11275-4, 4679-7, FEPR, 6793-4, 2132- 9, 2276-4, 2284-8, 2731-8, 46181-5 #### [facility] ([id number]) [address], [address] [place] [address] Sodium [Moles/Vol] 136 mmol/L Normal 134-146 [facility] Comment on above: Performed By: #### P INR, 39860-1, 4679-7, FEPR, 6793-4, 2132- 9, 2276-4, 2284-8, 2731-8, 98741-6 #### [facility] ([id number]) [address], [address] [place] [address] Urea nitrogen [Mass/Vol] 14 mg/dL Normal 5-23 [facility] Comment on above: Performed By: #### P INR, 17185-0, 4679-7, FEPR, 6793-4, 2132- 9, 2276-4, 2284-8, 2731-8, 83484-9 #### [facility] ([id number]) [address] [place] [address] Basic Metabolic Panelon 06- Anion gap [Moles/Vol] 10 mmol/L 5 - 15 mmol/L [facility] Calcium [Mass/Vol] 8.8 mg/dL 8.5 - 10. 5 mg/dL [facility] Chloride [Moles/Vol] 102 mmol/L 98 - 10 9 mmol/L [facility] CO2 [Moles/Vol] 24 mmol/L 22 - 32 mmol/L [facility] Creatinine [Mass/Vol] 0.64 mg/dL 0.60 - 1.30 mg/dL [facility] Comment on above: METHOD TRACEABLE TO [facility] STANDARD eGFR (CKD-EPI)non-race dependent - PINF [facility] Comment on above: Reported eGFR is based on the CKD-EPI 2020 equation that does not use a race coefficient. Glucose [Mass/Vol] 119 mg/dL High 65 - 99 mg/dL [facility] Potassium [Moles/Vol] 4.3 mmol/L 3.5 - 5.0 mmol/L [facility] Sodium [Moles/Vol] 136 mmol/L 134 - 146 mmol/L [facility] Urea nitrogen [Mass/Vol] 14 mg/dL 5 - 23 mg/dL [facility] CBC without diffon Erythrocyte distribution width (RBC) [Ratio] 16.4 % High 11.5 - 15.0 % [facility] Hematocrit (Bld) [Volume fraction] 34.9 % Low 39 - 49 % [facility] Hemoglobin (Bld) [Mass/Vol] 11.8 g/dL Low 13.0 - 17.0 g/dL [facility] Interpretation and review of laboratory results Abnormal [facility] MCH (RBC) [Entitic mass] 28.7 pg 27 - 34 pg [facility] MCHC (RBC) [Mass/Vol] 33.7 g/dL 32 - 3 6 g/dL [facility] MCV (RBC) [Entitic vol] 85 fL 80 - 100 fL [facility] Platelet mean volume (Bld) [Entitic vol] 11.0 fL 7 - 12 fL [facility] Platelets (Bld) [#/Vol] 71 10*3/uL Low [facility] RBC (Bld) [#/Vol] 4.09 10*6/uL Low [facility] WBC corrected for nucl RBC Auto (Bld) [#/Vol] 6.7 [facility] COMPLETE BLOOD COUNTon 01-19 Erythrocyte distribution width (RBC) [Ratio] 16.4 % High 11.5-15.0 [facility] Comment on above: Performed By: #### P INR, 20004-7, 4679-7, FEPR, 6793-4, 2132- 9, 2276-4, 2284-8, 2731-8, 72785-5 #### [facility] ([id number]) [address] [place] [address] Hematocrit (Bld) [Volume fraction] 34.9 % Low 39-49 [facility] Comment on above: Performed By: #### P INR, 69842-8, 4679-7, FEPR, 6793-4, 2132- 9, 2276-4, 2284-8, 2731-8, 30908-6 #### [facility] ([id number]) [address], [address] [place] [address] Hemoglobin (Bld) [Mass/Vol] 11.8 g/dL Low 13.0-17.0 [facility] Comment on above: Performed By: #### P INR, 30361-9, 4679-7, FEPR, 6793-4, 2132- 9, 2276-4, 2284-8, 2731-8, 56851-3 #### [facility] ([id number]) [address], [address] [place] [address] MCH (RBC) [Entitic mass] 28.7 pg Normal 27-34 [facility] Comment on above: Performed By: #### P INR, 43966-5, 4679-7, FEPR, 6793-4, 2132- 9, 2276-4, 2284-8, 2731-8, 01442-8 #### [facility] ([id number]) [address], [address] [place] [address] MCHC (RBC) [Mass/Vol] 33.7 g/dL Normal 32-36 [facility] Comment on above: Performed By: #### P INR, 25791-0, 4679-7, FEPR, 6793-4, 2132- 9, 2276-4, 2284-8, 2731-8, 70821-8 #### [facility] ([id number]) [address], [address] [place] [address] MCV (RBC) [Entitic vol] 85 fL Normal 80-100 [facility] Comment on above: Performed By: #### P INR, 08879-4, 4679-7, FEPR, 6793-4, 2132- 9, 2276-4, 2284-8, 2731-8, 53404-7 #### [facility] ([id number]) [address], [address] [place] [address] Platelet mean volume (Bld) [Entitic vol] 11.0 fL Normal 7-12 [facility] Comment on above: Performed By: #### P INR, 60462-1, 4679-7, FEPR, 6793-4, 2132- 9, 2276-4, 2284-8, 2731-8, 12497-9 #### [facility] ([id number]) [address], [address] [place] [address] Platelets (Bld) [#/Vol] 71 10*3/uL Low 150-450 [facility] Comment on above: Performed By: #### P INR, 14171-7, 4679-7, FEPR, 6793-4, 2132- 9, 2276-4, 2284-8, 2731-8, 88972-9 #### [facility] ([id number]) [address], [address] [place] [address] RBC COUNT 4.09 X10E12/L Low 4.10-5.70 [facility] Comment on above: Performed By: #### P INR, 06280-0, 4679-7, FEPR, 6793-4, 2132- 9, 2276-4, 2284-8, 2731-8, 64206-3 #### [facility] ([id number]) [address], [address] [place] [address] WBC (Bld) [#/Vol] 6.7 10*3/uL Normal 4.0-11.0 [facility] Comment on above: Performed By: #### P INR, 41152-2, 4679-7, FEPR, 6793-4, 2132- 9, 2276-4, 2284-8, 2731-8, 25784-9 #### [facility] ([id number]) [address], [address] [place] [address] Glucose Glucometer (BldC) [M ass/Vol]on 01-20-2024 Glucose [Mass/Vol] 205 mg/dL High 65 - 99 mg/dL [facility] Interpretation and review of laboratory results Abnormal [facility] Glucose [Mass/Vol] 205 mg/dL High 65-99 [facility] Glucose [Mass/Vol] 131 mg/dL High 65 - 99 mg/dL [facility] Interpretation and review of laboratory results Abnormal [facility] Glucose [Mass/Vol] 131 mg/dL High 65-99 [facility] Glucose [Mass/Vol] 173 mg/dL High 65 - 99 mg/dL [facility] Interpretation and review of laboratory results Abnormal [facility] Glucose [Mass/Vol] 173 mg/dL High 65-99 [facility] Glucose [Mass/Vol] 120 mg/dL High 65 - 99 mg/dL [facility] Interpretation and review of laboratory results Abnormal [facility] Glucose [Mass/Vol] 120 mg/dL High 65-99 [facility] MAGNESIUMon 01-20-2024 Magnesium [Mass/Vol] 1.6 mg/dL Low 1.8-2.6 [facility] Comment on above: Performed By: #### P INR, 99211-8, 4679-7, FEPR, 6793-4, 2132- 9, 2276-4, 2284-8, 2731-8, 66543-5 #### [facility] ([id number]) [address], [address] [place] [address] Magnesiumon 01-20-2024 Magnesium [Mass/Vol] 1.6 mg/dL Low 1.8 - 2 .6 mg/dL [facility] No Panel Informationon 01-19 Interpretation and review of laboratory results Abnormal [facility] BASIC METABOLIC PANLon 01-18 Anion gap [Moles/Vol] 11 mmol/L Normal 5-15 [facility] Comment on above: Performed By: #### P INR, 91822-8, 4679-7, FEPR, 6793-4, 2132- 9, 2276-4, 2284-8, 2731-8, 63431-4 #### [facility] ([id number]) [address], [address] [place] [address] Calcium [Mass/Vol] 9.0 mg/dL Normal 8.5-10.5 [facility] Comment on above: Performed By: #### P INR, 69833-1, 4679-7, FEPR, 6793-4, 2132- 9, 2276-4, 2284-8, 2731-8, 95831-2 #### [facility] ([id number]) [address], [address] [place] [address] Chloride [Moles/Vol] 102 mmol/L Normal 98-109 [facility] Comment on above: Performed By: #### P INR, 67137-1, 4679-7, FEPR, 6793-4, 2132- 9, 2276-4, 2284-8, 2731-8, 52315-0 #### [facility] ([id number]) [address], [address] [place] [address] CO2 [Moles/Vol] 23 mmol/L Normal 22-32 [facility] Comment on above: Performed By: #### P INR, 56607-8, 4679-7, FEPR, 6793-4, 2132- 9, 2276-4, 2284-8, 2731-8, 09569-4 #### [facility] ([id number]) [address], [address] [place] [address] Creatinine [Mass/Vol] 0.57 mg/dL Low 0.60-1.30 [facility] Comment on above: Result Comment: METH OD TRACEABLE TO IDMS STANDARD Performed By: #### P INR, 38857-7, 4679-7, FEPR, 6793-4, 2132-9, 2276-4, 2284-8, 2731-8, 32330-8 #### [facility] ([id number]) [address], [address] [place] [address] eGFR (CKD-EPI) NON-RACE DEPENDENT >90 Normal >59 [facility] Comment on above: Result Comment: Reported eGFR is based on the CKD-EPI 2020 equation that does not use a race coefficient. Performed By: #### P INR, 62429-3, 4679-7, FEPR, 6793-4, 2132-9, 2276-4, 2284-8, 2731-8, 97817-8 #### [facility] ([id number]) [address], [address] [place] [address] Glucose [Mass/Vol] 150 mg/dL High 65-99 [facility] Comment on above: Performed By: #### P INR, 16571-1, 4679-7, FEPR, 6793-4, 2132- 9, 2276-4, 2284-8, 2731-8, 53753-8 #### [facility] ([id number]) [address], [address] [place] [address] Potassium [Moles/Vol] 4.5 mmol/L Normal 3.5-5.0 [facility] Comment on above: Performed By: #### P INR, 17803-7, 4679-7, FEPR, 6793-4, 2132- 9, 2276-4, 2284-8, 2731-8, 29573-7 #### [facility] ([id number]) [address], [address] [place] [address] Sodium [Moles/Vol] 136 mmol/L Normal 134-146 [facility] Comment on above: Performed By: #### P INR, 91987-7, 4679-7, FEPR, 6793-4, 2132- 9, 2276-4, 2284-8, 2731-8, 59522-9 #### [facility] ([id number]) [address], [address] [place] [address] Urea nitrogen [Mass/Vol] 13 mg/dL Normal 5-23 [facility] Comment on above: Performed By: #### P INR, 60543-9, 4679-7, FEPR, 6793-4, 2132- 9, 2276-4, 2284-8, 2731-8, 29370-0 #### [facility] ([id number]) [address], [address] [place] [address] Basic Metabolic Panelon 06-0 -2023 Anion gap [Moles/Vol] 11 mmol/L 5 - 15 mmol/L [facility] Calcium [Mass/Vol] 9.0 mg/dL 8.5 - 10. 5 mg/dL [facility] Chloride [Moles/Vol] 102 mmol/L 98 - 10 9 mmol/L [facility] CO2 [Moles/Vol] 23 mmol/L 22 - 32 mmol/L [facility] Creatinine [Mass/Vol] 0.57 mg/dL Low 0.60 - 1.30 mg/dL [facility] Comment on above: METHOD TRACEABLE TO IDIN STANDARD eGFR (CKD-EPI)non-race dependent - PINF [facility] Comment on above: Reported eGFR is based on the CKD-EPI 2020 equation that does not use a race coefficient. Glucose [Mass/Vol] 150 mg/dL High 65 - 99 mg/dL [facility] Interpretation and review of laboratory results Abnormal [facility] Potassium [Moles/Vol] 4.5 mmol/L 3.5 - 5.0 mmol/L [facility] Sodium [Moles/Vol] 136 mmol/L 134 - 146 mmol/L [facility] Urea nitrogen [Mass/Vol] 13 mg/dL 5 - 23 mg/dL [facility] CBC without diffon Erythrocyte distribution width (RBC) [Ratio] 16.5 % High 11.5 - 15.0 % [facility] Hematocrit (Bld) [Volume fraction] 38.9 % Low 39 - 49 % [facility] Hemoglobin (Bld) [Mass/Vol] 13.4 g/dL 13.0 - 17.0 g/dL [facility] Interpretation and review of laboratory results Abnormal [facility] MCH (RBC) [Entitic mass] 29.1 pg 27 - 34 pg [facility] MCHC (RBC) [Mass/Vol] 34.4 g/dL 32 - 3 6 g/dL [facility] MCV (RBC) [Entitic vol] 85 fL 80 - 100 fL [facility] Platelet mean volume (Bld) [Entitic vol] 11.0 fL 7 - 12 fL [facility] Platelets (Bld) [#/Vol] 96 10*3/uL Low [facility] RBC (Bld) [#/Vol] 4.60 10*6/uL [facility] WBC corrected for nucl RBC Auto (Bld) [#/Vol] 9.8 [facility] COMPLETE BLOOD COUNTon 01-18 Erythrocyte distribution width (RBC) [Ratio] 16.5 % High 11.5-15.0 [facility] Comment on above: Performed By: #### P INR, 48875-0, 4679-7, FEPR, 6793-4, 2132- 9, 2276-4, 2284-8, 2731-8, 96657-6 #### [facility] ([id number]) [address], [address] [place] [address] Hematocrit (Bld) [Volume fraction] 38.9 % Low 39-49 [facility] Comment on above: Performed By: #### P INR, 00517-0, 4679-7, FEPR, 6793-4, 2132- 9, 2276-4, 2284-8, 2731-8, 18662-0 #### [facility] ([id number]) [address], [address] [place] [address] Hemoglobin (Bld) [Mass/Vol] 13.4 g/dL Normal 13.0-17.0 [facility] Comment on above: Performed By: #### P INR, 46423-2, 4679-7, FEPR, 6793-4, 2132- 9, 2276-4, 2284-8, 2731-8, 95931-9 #### [facility] ([id number]) [address], [address] [place] [address] MCH (RBC) [Entitic mass] 29.1 pg Normal 27-34 [facility] Comment on above: Performed By: #### P INR, 89955-9, 4679-7, FEPR, 6793-4, 2132- 9, 2276-4, 2284-8, 2731-8, 83721-3 #### [facility] ([id number]) [address], [address] [place] [address] MCHC (RBC) [Mass/Vol] 34.4 g/dL Normal 32-36 [facility] Comment on above: Performed By: #### P INR, 43019-6, 4679-7, FEPR, 6793-4, 2132- 9, 2276-4, 2284-8, 2731-8, 15147-6 #### [facility] ([id number]) [address], [address] [place] [address] MCV (RBC) [Entitic vol] 85 fL Normal 80-100 [facility] Comment on above: Performed By: #### P INR, 61061-9, 4679-7, FEPR, 6793-4, 2132- 9, 2276-4, 2284-8, 2731-8, 86473-5 #### [facility] ([id number]) [address], [address] [place] [address] Platelet mean volume (Bld) [Entitic vol] 11.0 fL Normal 7-12 [facility] Comment on above: Performed By: #### P INR, 47718-1, 4679-7, FEPR, 6793-4, 2132- 9, 2276-4, 2284-8, 2731-8, 34686-4 #### [facility] ([id number]) [address], [address] [place] [address] Platelets (Bld) [#/Vol] 96 10*3/uL Low 150-450 [facility] Comment on above: Performed By: #### P INR, 39480-8, 4679-7, FEPR, 6793-4, 2132- 9, 2276-4, 2284-8, 2731-8, 76780-2 #### [facility] ([id number]) [address], [address] [place] [address] RBC COUNT 4.60 X10E12/L Normal 4.10-5.70 [facility] Comment on above: Performed By: #### P INR, 37958-2, 4679-7, FEPR, 6793-4, 2132- 9, 2276-4, 2284-8, 2731-8, 50870-6 #### [facility] ([id number]) [address], [address] [place] [address] WBC (Bld) [#/Vol] 9.8 10*3/uL Normal 4.0-11.0 [facility] Comment on above: Performed By: #### P INR, 67862-1, 4679-7, FEPR, 6793-4, 2132- 9, 2276-4, 2284-8, 2731-8, 35079-5 #### [facility] ([id number]) [address], [address] [place] [address] Glucose Glucometer (BldC) [M ass/Vol]on 01-19-2024 Glucose [Mass/Vol] 201 mg/dL High 65 - 99 mg/dL [facility] Interpretation and review of laboratory results Abnormal [facility] Glucose [Mass/Vol] 201 mg/dL High 65-99 [facility] Glucose [Mass/Vol] 223 mg/dL High 65 - 99 mg/dL [facility] Interpretation and review of laboratory results Abnormal [facility] Glucose [Mass/Vol] 223 mg/dL High 65-99 [facility] Glucose [Mass/Vol] 139 mg/dL High 65 - 99 mg/dL [facility] Interpretation and review of laboratory results Abnormal [facility] Glucose [Mass/Vol] 139 mg/dL High 65-99 [facility] Glucose [Mass/Vol] 243 mg/dL High 65 - 99 mg/dL [facility] Interpretation and review of laboratory results Abnormal [facility] Glucose [Mass/Vol] 243 mg/dL High 65-99 [facility] Glucose [Mass/Vol] 141 mg/dL High 65 - 99 mg/dL [facility] Interpretation and review of laboratory results Abnormal [facility] Glucose [Mass/Vol] 141 mg/dL High 65-99 [facility] MAGNESIUMon 01-19-2024 Magnesium [Mass/Vol] 1.4 mg/dL Low 1.8-2.6 [facility] Comment on above: Performed By: #### P INR, 30938-7, 4679-7, FEPR, 6793-4, 2132- 9, 2276-4, 2284-8, 2731-8, 87994-5 #### [facility] ([id number]) [address], [address] [place] [address] Magnesiumon 01-19-2024 Magnesium [Mass/Vol] 1.4 mg/dL Low 1.8 - 2 .6 mg/dL [facility] Magnesium [Mass/Vol]on 01-18 Interpretation and review of laboratory results Abnormal [facility] BASIC METABOLIC PANLon 01-17 Anion gap [Moles/Vol] 9 mmol/L Normal 5-15 [facility] Comment on above: Performed By: #### P INR, 51628-9, 4679-7, FEPR, 6793-4, 2132- 9, 2276-4, 2284-8, 2731-8, 88682-2 #### [facility] ([id number]) [address], [address] [place] [address] Calcium [Mass/Vol] 9.4 mg/dL Normal 8.5-10.5 [facility] Comment on above: Performed By: #### P INR, 71009-5, 4679-7, FEPR, 6793-4, 2132- 9, 2276-4, 2284-8, 2731-8, 82090-7 #### [facility] ([id number]) [address], [address] [place] [address] Chloride [Moles/Vol] 101 mmol/L Normal 98-109 [facility] Comment on above: Performed By: #### P INR, 54326-0, 4679-7, FEPR, 6793-4, 2132- 9, 2276-4, 2284-8, 2731-8, 46766-0 #### [facility] ([id number]) [address], [address] [place] [address] CO2 [Moles/Vol] 28 mmol/L Normal 22-32 [facility] Comment on above: Performed By: #### P INR, 46477-5, 4679-7, FEPR, 6793-4, 2132- 9, 2276-4, 2284-8, 2731-8, 85287-7 #### [facility] ([id number]) [address], [address] [place] [address] Creatinine [Mass/Vol] 0.70 mg/dL Normal 0.60-1.30 [facility] Comment on above: Result Comment: METH OD TRACEABLE TO IDMS STANDARD Performed By: #### P INR, 23837-2, 4679-7, FEPR, 6793-4, 2132-9, 2276-4, 2284-8, 2731-8, 27387-5 #### [facility] ([id number]) [address], [address] [place] [address] eGFR (CKD-EPI) NON-RACE DEPENDENT >90 Normal >59 [facility] Comment on above: Result Comment: Reported eGFR is based on the CKD-EPI 2020 equation that does not use a race coefficient. Performed By: #### P INR, 97917-5, 4679-7, FEPR, 6793-4, 2132-9, 2276-4, 2284-8, 2731-8, 42904-7 #### [facility] ([id number]) [address], [address] [place] [address] Glucose [Mass/Vol] 123 mg/dL High 65-99 [facility] Comment on above: Performed By: #### P INR, 03008-0, 4679-7, FEPR, 6793-4, 2132- 9, 2276-4, 2284-8, 2731-8, 95939-2 #### [facility] ([id number]) [address], [address] [place] [address] Potassium [Moles/Vol] 3.9 mmol/L Normal 3.5-5.0 [facility] Comment on above: Performed By: #### P INR, 08463-1, 4679-7, FEPR, 6793-4, 2132- 9, 2276-4, 2284-8, 2731-8, 06226-1 #### [facility] ([id number]) [address], [address] [place] [address] Sodium [Moles/Vol] 138 mmol/L Normal 134-146 [facility] Comment on above: Performed By: #### P INR, 96838-8, 4679-7, FEPR, 6793-4, 2132- 9, 2276-4, 2284-8, 2731-8, 80557-9 #### [facility] ([id number]) [address] [place] [address] Urea nitrogen [Mass/Vol] 8 mg/dL Normal 5-23 [facility] Comment on above: Performed By: #### P INR, 51584-6, 4679-7, FEPR, 6793-4, 2132- 9, 2276-4, 2284-8, 2731-8, 10790-7 #### [facility] ([id number]) [address], [address] [place] [address] Basic Metabolic Panelon 06-0 Anion gap [Moles/Vol] 9 mmol/L 5 - 15 mmol/L [facility] Calcium [Mass/Vol] 9.4 mg/dL 8.5 - 10. 5 mg/dL [facility] Chloride [Moles/Vol] 101 mmol/L 98 - 10 9 mmol/L [facility] CO2 [Moles/Vol] 28 mmol/L 22 - 32 mmol/L [facility] Creatinine [Mass/Vol] 0.70 mg/dL 0.60 - 1.30 mg/dL [facility] Comment on above: METHOD TRACEABLE TO IDMS STANDARD eGFR (CKD-EPI)non-race dependent - PINF [facility] Comment on above: Reported eGFR is based on the CKD-EPI 2020 equation that does not use a race coefficient. Glucose [Mass/Vol] 123 mg/dL High 65 - 99 mg/dL [facility] Interpretation and review of laboratory results Abnormal [facility] Potassium [Moles/Vol] 3.9 mmol/L 3.5 - 5.0 mmol/L [facility] Sodium [Moles/Vol] 138 mmol/L 134 - 146 mmol/L [facility] Urea nitrogen [Mass/Vol] 8 mg/dL 5 - 23 mg/dL [facility] CBC without diffon Erythrocyte distribution width (RBC) [Ratio] 17.0 % High 11.5 - 15.0 % [facility] Hematocrit (Bld) [Volume fraction] 44.5 % 39 - 49 % [facility] Hemoglobin (Bld) [Mass/Vol] 15.2 g/dL 13.0 - 17.0 g/dL [facility] Interpretation and review of laboratory results Abnormal [facility] MCH (RBC) [Entitic mass] 29.2 pg 27 - 34 pg [facility] MCHC (RBC) [Mass/Vol] 34.2 g/dL 32 - 3 6 g/dL [facility] MCV (RBC) [Entitic vol] 86 fL 80 - 100 fL [facility] Platelet mean volume (Bld) [Entitic vol] 10.8 fL 7 - 12 fL [facility] Platelets (Bld) [#/Vol] 80 10*3/uL Low [facility] RBC (Bld) [#/Vol] 5.21 10*6/uL [facility] WBC corrected for nucl RBC Auto (Bld) [#/Vol] 6.2 [facility] COMPLETE BLOOD COUNTon 01-17 Erythrocyte distribution width (RBC) [Ratio] 17.0 % High 11.5-15.0 [facility] Comment on above: Performed By: #### P INR, 06249-0, 4679-7, FEPR, 6793-4, 2132- 9, 2276-4, 2284-8, 2731-8, 12873-0 #### [facility] ([id number]) [address], [address] [place] [address] Hematocrit (Bld) [Volume fraction] 44.5 % Normal 39-49 [facility] Comment on above: Performed By: #### P INR, 27032-8, 4679-7, FEPR, 6793-4, 2132- 9, 2276-4, 2284-8, 2731-8, 10042-2 #### [facility] ([id number]) [address], [address] [place] [address] Hemoglobin (Bld) [Mass/Vol] 15.2 g/dL Normal 13.0-17.0 [facility] Comment on above: Performed By: #### P INR, 96233-9, 4679-7, FEPR, 6793-4, 2132- 9, 2276-4, 2284-8, 2731-8, 55692-8 #### [facility] ([id number]) [address], [address] [place] [address] MCH (RBC) [Entitic mass] 29.2 pg Normal 27-34 [facility] Comment on above: Performed By: #### P INR, 06733-7, 4679-7, FEPR, 6793-4, 2132- 9, 2276-4, 2284-8, 2731-8, 84162-5 #### [facility] ([id number]) [address], [address] [place] [address] MCHC (RBC) [Mass/Vol] 34.2 g/dL Normal 32-36 [facility] Comment on above: Performed By: #### P INR, 57931-3, 4679-7, FEPR, 6793-4, 2132- 9, 2276-4, 2284-8, 2731-8, 60262-6 #### [facility] ([id number]) [address], [address] [place] [address] MCV (RBC) [Entitic vol] 86 fL Normal 80-100 [facility] Comment on above: Performed By: #### P INR, 98754-8, 4679-7, FEPR, 6793-4, 2132- 9, 2276-4, 2284-8, 2731-8, 29834-0 #### [facility] ([id number]) [address], [address] [place] [address] Platelet mean volume (Bld) [Entitic vol] 10.8 fL Normal 7-12 [facility] Comment on above: Performed By: #### P INR, 91581-5, 4679-7, FEPR, 6793-4, 2132- 9, 2276-4, 2284-8, 2731-8, 50508-7 #### [facility] ([id number]) [address], [address] [place] [address] Platelets (Bld) [#/Vol] 80 10*3/uL Low 150-450 [facility] Comment on above: Performed By: #### P INR, 33212-7, 4679-7, FEPR, 6793-4, 2132- 9, 2276-4, 2284-8, 2731-8, 66440-3 #### [facility] ([id number]) [address], [address] [place] [address] RBC COUNT 5.21 X10E12/L Normal 4.10-5.70 [facility] Comment on above: Performed By: #### P INR, 13637-5, 4679-7, FEPR, 6793-4, 2132- 9, 2276-4, 2284-8, 2731-8, 22124-5 #### [facility] ([id number]) [address], [address] [place] [address] WBC (Bld) [#/Vol] 6.2 10*3/uL Normal 4.0-11.0 [facility] Comment on above: Performed By: #### P INR, 94633-1, 4679-7, FEPR, 6793-4, 2131- 9, 2276-4, 2284-8, 2731-8, 86287-8 #### [facility] ([id number]) [address] [place] [address] Glucose Glucometer (BldC) [M ass/Vol]on 01-18-2024 Glucose [Mass/Vol] 238 mg/dL High 65 - 99 mg/dL [facility] Interpretation and review of laboratory results Abnormal [facility] Glucose [Mass/Vol] 238 mg/dL High 65-99 [facility] Glucose [Mass/Vol] 197 mg/dL High 65 - 99 mg/dL [facility] Interpretation and review of laboratory results Abnormal [facility] Glucose [Mass/Vol] 197 mg/dL High 65-99 [facility] Glucose [Mass/Vol] 188 mg/dL High 65 - 99 mg/dL [facility] Interpretation and review of laboratory results Abnormal [facility] Glucose [Mass/Vol] 188 mg/dL High 65-99 [facility] Glucose [Mass/Vol] 143 mg/dL High 65 - 99 mg/dL [facility] Interpretation and review of laboratory results Abnormal [facility] Glucose [Mass/Vol] 143 mg/dL High 65-99 [facility] Glucose [Mass/Vol] 119 mg/dL High 65 - 99 mg/dL [facility] Interpretation and review of laboratory results Abnormal [facility] Glucose [Mass/Vol] 119 mg/dL High 65-99 [facility] HGB A1C (GLYCO-HGB)on 2023 Glucose [Mass/Vol] 143 mg/dL Normal [facility] Comment on above: Performed By: #### P INR, 34530-1, 4679-7, FEPR, 6793-4, 2131- 9, 6-4, 2284-8, 2731-8, 70193-9 #### [facility] ([id number]) [address] [place] [address], [address] [place] [address] HbA1c (Bld) [Mass fraction] 6.6 % High 4.4-5.6 [facility] Comment on above: Result Comment: NOTE ADA Guidelines Result HgbA1c Normal : less than 5.7 % Prediabetes : 5.7 % to 6.4 % Diabetes : > 6.4 % Use with caution in patients with abnormal hemoglobin variants as the half-life of red blood cells and in vivo glycation rates are affected. Performed By: #### P INR, 54801-0, 4679-7, FEPR, 6793-4, 2132-9, 2276-4, 2284-8, 2731-8, 54130-2 #### [facility] ([id number]) [address] [place] [address], [address] [address] Hemoglobin A1con 01-18-2024 Average glucose Estimated from glycated hemoglobin (Bld) [Mass/Vol] 143 mg/dL [facility] HbA1c (Bld) [Mass fraction] 6.6 % High 4.4 - 5.6 % [facility] Comment on above: NOTE ADA Guidelines Result HgbA1c Normal : less than 5.7 % Prediabetes : 5.7 % to 6.4 % Diabetes : > 6.4 % Use with caution in patients with abnormal hemoglobin variants as the half-life of red blood cells and in vivo glycation rates are affected. Interpretation and review of laboratory results Abnormal [facility] MAGNESIUMon 01-18-2024 Magnesium [Mass/Vol] 1.7 mg/dL Low 1.8-2.6 [facility] Comment on above: Performed By: #### P INR, 25184-5, 4679-7, FEPR, 6793-4, 2132- 9, 2276-4, 2284-8, 2731-8, 74329-3 #### [facility] ([id number]) [address] [place] [address], [address] [place] [address] Magnesium [Mass/Vol]on 01-17 Interpretation and review of laboratory results Abnormal [facility] XR HIP RT 2-3 VIEWS W OR [...] Nathan Skinner on 01/18/2024 3:43 PM Normal [facility] XR HIP RT 2-3 VIEWS W [...] Gonzalez MD on 01/18/2024 3:40 PM Normal [facility] XR Lumbar spine 2 or 3 [...] Clifford Jauregui MD on 01/18/2024 8:31 AM Clifford Oneill MD - 01/18/2024 HISTORY: A 53-year-old male [...] Clifford Jauregui MD on 01/18/2024 8:31 AM [facility]narrative[facility] XR Lumbar spine 2 or 3 Views Ordered By: Clifford Jauregui on 01-18-2024 [employer] Work Phone: XR Pelvis and Hip - [...] by Nathan Skinner on 01/18/2024 3:43 PM Nathan Brown MD - 01/18/2024 XR HIP RT 2-3 VIEWS W OR WO PELVIS INDICATION: Pain FINDINGS: Intraoperative fluoroscopy. No radiologist present during the examination. Reference Air Kerma = 8.63 mGy Fluoroscopy time: 40 seconds Saved images: 13 IMPRESSION: Intraoperative fluoroscopy provided as above. See operative report for additional details. Finalized by Nathan Skinner on 01/18/2024 3:43 PM [facility] Radiology Study observation (narrative) [facility] XR HIP RT 2-3 VIEWS W PELVIS [...] Valdo Gonzalez MD on 01/18/2024 3:40 PM [facility] Radiology Study observation (narrative) [facility] XR Pelvis and Hip - right 2 ViewsOrdered By: Nathan Skinner on 01-18-2024 [facility] Work Phone: XR Pelvis and Hip - right 2 ViewsOrdered By: Valdo Gonzalez on 01-18-2024 [facility] Work Phone: XR SPINE LUMBAR 2 OR [...] Jauregui MD on 01/18/2024 8:31 AM Normal [facility] APTTon 01-17-2024 aPTT Coag (PPP) [Time] 30 s [facility] ECG 12 leadon 01-17-2024 TRACEMASTERVUE [facility] FERRITINon 01-17-2024 Ferritin [Mass/Vol] 42 ng/mL Normal 24-336 [facility] Comment on above: Performed By: #### P INR, 19232-4, 4679-7, FEPR, 6793-4, 2132- 9, 2276-4, 2284-8, 2731-8, 87359-2 #### [facility] ([id number]) [address] [place] [address], [address] [place] [address] Ferritinon 01-17-2024 Ferritin [Mass/Vol] 42 ng/mL 24 - 336 ng/mL [facility] Folateon 01-17-2024 Folate [Mass/Vol] 9.3 ng/mL 5.8 - PINF ng/mL [facility] Comment on above: NEW REFERENCE RANGE Folate [Mass/Vol]on 01-17-20 24 FOLIC ACID 9.3 ng/mL Normal >5.8 [facility] Comment on above: Result Comment: NEW REFERENCE RANGE Performed By: #### P INR, 94605-1, 4679-7, FEPR, 6793-4, 2132-9, 2276-4, 2284-8, 2731-8, 29970-5 #### [facility] ([id number]) [address], [address] [place] [address] Glucose Glucometer (BldC) [M ass/Vol]on 01-17-2024 Glucose [Mass/Vol] 94 mg/dL 65 - 99 mg/dL [facility] Glucose [Mass/Vol] 94 mg/dL Normal 65-99 [facility] IRON PROFILEon 01-17-2024 Iron [Mass/Vol] 74 ug/dL Normal 50-212 [facility] Comment on above: Result Comment: SPEC IMEN HEMOLYZED, RESULTS INCREASED SLIGHTLY HEMOLYZED Performed By: #### P INR, 45539-9, 4679-7, FEPR, 6793-4, 2132-9, 2276-4, 2284-8, 2731-8, 91042-5 #### [facility] ([id number]) [address], [address] [place] [address] IRON BINDING 449 ug/dL High 250-425 [facility] Comment on above: Performed By: #### P INR, 17829-8, 4679-7, FEPR, 6793-4, 2132- 9, 2276-4, 2284-8, 2731-8, 94899-8 #### [facility] ([id number]) [address], [address] [place] [address] IRON SATURATION 16 % SATURATION Low 20-50 [facility] Comment on above: Performed By: #### P INR, 50675-8, 4679-7, FEPR, 6793-4, 2132- 9, 2276-4, 2284-8, 2731-8, 47625-6 #### [facility] ([id number]) [address], [address] [place] [address] Iron and TIBCon 01-17-2024 Interpretation and review of laboratory results Abnormal [facility] Iron [Mass/Vol] 74 ug/dL 50 - 212 ug/dL [facility] Comment on above: SPECIMEN HEMOLYZED, RESULTS INCREASED SLIGHTLY HEMOLYZED Iron binding capacity [Mass/Vol] 449 ug/dL High 250 - 425 ug/dL [facility] Iron saturation [Mass fraction] 16 Low [facility] No Panel Informationon 01-16 [facility] PROTIME AND INRon 01-17-2024 INR Coag (PPP) [Relative time] 1.0 {INR} Normal 0.8-1.1 [facility] Comment on above: Performed By: #### P INR, 62910-2, 4679-7, FEPR, 6793-4, 2132- 9, 2276-4, 2284-8, 2731-8, 18502-5 #### [facility] ([id number]) [address], [address] [place] [address] PT Coag (PPP) [Time] 12.2 s Normal 9.8-13.2 [facility] Comment on above: Performed By: #### P INR, 17612-8, 4679-7, FEPR, 6793-4, 2132- 9, 2276-4, 2284-8, 2731-8, 01835-2 #### [facility] ([id number]) [address], [address] [place] [address] Parathyrin.intact [Mass/Vol] on 01-17-2024 PTH INTACT 27 pg/mL Normal 12-88 [facility] Comment on above: Performed By: #### P INR, 76182-0, 4679-7, FEPR, 6793-4, 2132- 9, 2276-4, 2284-8, 2731-8, 72700-1 #### [facility] ([id number]) [address], [address] [place] [address] Parathyroid Hormone, intacto n 01-17-2024 Parathyrin.intact [Mass/Vol] 27 pg/mL 12 - 88 pg/mL [facility] Prealbuminon 01-17-2024 Prealbumin IA [Mass/Vol] 21 mg/dL 18 - 45 mg/dL [facility] Prealbumin IA [Mass/Vol]on 0 01-17-2024 Prealbumin [Mass/Vol] 21 mg/dL Normal 18-45 [facility] Comment on above: Performed By: #### P INR, 22993-5, 4679-7, FEPR, 6793-4, 2132- 9, 2276-4, 2284-8, 2731-8, 54101-1 #### [facility] ([id number]) [address], [address] [place] [address] Protime & INRon 01-17-2024 INR Coag (PPP) [Relative time] 1.0 {INR} [facility] PT Coag (PPP) [Time] 12.2 s [facility] Reticulocyteson 01-17-2024 Reticulocytes/100 RBC (Bld) 1.1 % 0.4 - 2.2 % [facility] Reticulocytes/100 RBC (Bld)o n 01-17-2024 [facility] RETICULOCYTE COUNT 1.1 % Normal 0.4-2.2 [facility] Comment on above: Performed By: #### P INR, 67820-0, 4679-7, FEPR, 6793-4, 2132- 9, 2276-4, 2284-8, 2731-8, 57118-1 #### [facility] ([id number]) [address], [address] [place] [address] Troponin I, High Sensitivity on 01-17-2024 Troponin I.cardiac High sensitivity method [Mass/Vol] 5 ng/L [facility] - 21 ng/L [facility] Troponin I, High Sensitivity 1 Houron 01-17-2024 Troponin I.cardiac High sensitivity method [Mass/Vol] 5 ng/L NINF - 21 ng/L [facility] Troponin I.cardiac High sens itivity method [Mass/Vol]on 01-17-2024 [facility] 1 HOUR TROP I, HIGH SENSITIVITY 5 ng/L Normal <21 [facility] Comment on above: Performed By: #### P INR, 31477-8, 4679-7, FEPR, 6793-4, 2132- 9, 2276-4, 2284-8, 2731-8, 15392-3 #### [facility] ([id number]) [address], [address] [place] [address] [facility] TROPONIN I, HIGH SENSITIVITY 5 ng/L Normal <21 [facility] Comment on above: Performed By: #### P INR, 27997-3, 4679-7, FEPR, 6793-4, 2132- 9, 2276-4, 2284-8, 2731-8, 15901-2 #### [facility] ([id number]) [address], [address] [place] [address] Type and screen(includes ind irect yolanda)on 01-17-2024 ABO O [facility] Rh Nom (Bld) Positive [facility] URINALYSISon 01-17-2024 Bilirubin Ql (U) Negative Normal NEG [facility] Comment on above: Performed By: #### P INR, 98114-5, 4679-7, FEPR, 6793-4, 2132- 9, 2276-4, 2284-8, 2731-8, 81100-7 #### [facility] ([id number]) [address], [address] [place] [address] BLOOD/HGB Trace Abnormal NEG [facility] Comment on above: Performed By: #### P INR, 31091-0, 4679-7, FEPR, 6793-4, 2132- 9, 2276-4, 2284-8, 2731-8, 34496-7 #### [facility] ([id number]) [address], [address] [place] [address] Color (U) YELLOW Normal YELLOW [facility] Comment on above: Performed By: #### P INR, 03471-9, 4679-7, FEPR, 6793-4, 2132- 9, 2276-4, 2284-8, 2731-8, 14942-2 #### [facility] ([id number]) [address], [address] [place] [address] Glucose Ql (U) Negative Normal NEG [facility] Comment on above: Performed By: #### P INR, 94396-8, 4679-7, FEPR, 6793-4, 2132- 9, 2276-4, 2284-8, 2731-8, 91478-7 #### [facility] ([id number]) [address], [address] [place] [address] Ketones Ql (U) Negative Normal NEG [facility] Comment on above: Performed By: #### P INR, 24618-6, 4679-7, FEPR, 6793-4, 2132- 9, 2276-4, 2284-8, 2731-8, 91621-8 #### [facility] ([id number]) [address], [address] [place] [address] Leukocyte esterase Test strip Ql (U) Negative Normal NEG [facility] Comment on above: Performed By: #### P INR, 45328-0, 4679-7, FEPR, 6793-4, 2132- 9, 2276-4, 2284-8, 2731-8, 84156-6 #### [facility] ([id number]) [address], [address] [place] [address] MUCOUS PRESENT Abnormal NONE [facility] Comment on above: Performed By: #### P INR, 51077-7, 4679-7, FEPR, 6793-4, 2132- 9, 2276-4, 2284-8, 2731-8, 14734-6 #### [facility] ([id number]) [address], [address] [place] [address] Nitrite Ql (U) Negative Normal NEG [facility] Comment on above: Performed By: #### P INR, 46896-8, 4679-7, FEPR, 6793-4, 2132- 9, 2276-4, 2284-8, 2731-8, 15471-9 #### [facility] ([id number]) [address], [address] [place] [address] pH (U) 8.5 [pH] Normal 5.0-8.5 [facility] Comment on above: Performed By: #### P INR, 79404-7, 4679-7, FEPR, 6793-4, 2132- 9, 2276-4, 2284-8, 2731-8, 34157-9 #### [facility] ([id number]) [address], [address] [place] [address] Protein Ql (U) Trace Abnormal NEG [facility] Comment on above: Result Comment: Not confirmed. Interpret positive result with caution due to alkaline pH. Suggest quantitative Urine Protein be tested. Performed By: #### P INR, 34815-3, 4679-7, FEPR, 6793-4, 2132-9, 2276-4, 2284-8, 2731-8, 59758-8 #### [facility] ([id number]) [address], [address] [place] [address] R.B.CELLS 7 /hpf High 0-5 [facility] Comment on above: Performed By: #### P INR, 84079-4, 4679-7, FEPR, 6793-4, 2132- 9, 2276-4, 2284-8, 2731-8, 68574-4 #### [facility] ([id number]) [address], [address] [place] [address] Specific gravity (U) [Rel density] 1.018 Normal 1.003-1.03 5 [facility] Comment on above: Performed By: #### P INR, 19519-3, 4679-7, FEPR, 6793-4, 2132- 9, 2276-4, 2284-8, 2731-8, 35086-8 #### [facility] ([id number]) [address], [address] [place] [address] TURBIDITY CLEAR Normal CLEAR [facility] Comment on above: Performed By: #### P INR, 46846-4, 4679-7, FEPR, 6793-4, 2132- 9, 2276-4, 2284-8, 2731-8, 69152-5 #### [facility] ([id number]) [address], [address] [place] [address] Urobilinogen (U) [Mass/Vol] mg/dL Normal <1.1 [facility] Comment on above: Performed By: #### P INR, 21925-8, 4679-7, FEPR, 6793-4, 2132- 9, 2276-4, 2284-8, 2731-8, 59475-9 #### [facility] ([id number]) [address], [address] [place] [address] W.B.CELLS 2 /hpf Normal 0-5 [facility] Comment on above: Performed By: #### P INR, 40786-1, 4679-7, FEPR, 6793-4, 2132- 9, 2276-4, 2284-8, 2731-8, 11136-4 #### [facility] ([id number]) [address], [address] [place] [address] Urinalysison 01-17-2024 Bilirubin Ql (U) Negative Negative^N egative [facility] Color (U) YELLOW YELLOW^YEL LOW [facility] Glucose (U) [Mass/Vol] Negative Negative^N egative mg/dL [facility] Hemoglobin Auto test strip Ql (U) Trace Abnormal Negative^N egative [facility] Interpretation and review of laboratory results Abnormal [facility] Ketones (U) [Mass/Vol] Negative Negative^N egative mg/dL [facility] Leukocyte esterase Auto test strip Ql (U) Negative Negative^N egative [facility] Mucus Ql (Urine sed) PRESENT Abnormal NONE^NONE [facility] Nitrite Auto test strip Ql (U) Negative Negative^N egative [facility] pH (U) 8.5 [pH] 5.0 - 8.5 [facility] Protein (U) [Mass/Vol] Trace Abnormal Negative^N egative mg/dL [facility] Comment on above: Not confirmed. Inter pret positive result with caution due to alkaline pH. Suggest quantitative Urine Protein be tested. RBC Auto (Urine sed) [#/Area] 7 High [facility] Specific gravity Refractometry automated (U) [Rel density] 1.018 1.003 - 1.035 [facility] Turbidity Ql (U) CLEAR CLEAR^LEANDRA R [facility] Urobilinogen Qn (U) NINF [facility] WBC Auto (Urine sed) [#/Area] 2 [facility] VITAMIN B12on 01-17-2024 Cobalamin (Vitamin B12) [Mass/Vol] 242 pg/mL Normal 180-914 [facility] Comment on above: Performed By: #### P INR, 82002-9, 4679-7, FEPR, 6793-4, 2132- 9, 2276-4, 2284-8, 2731-8, 73919-5 #### [facility] ([id number]) [address], [address] [place] [address] Vitamin B12on 01-17-2024 Cobalamin (Vitamin B12) [Mass/Vol] 242 pg/mL 180 - 914 pg/mL [facility] Vitamin D 25 hydroxyon 01-16 Vitamin D+Metabolites [Mass/Vol] 20.4 ng/mL Low 30 - 100 ng/mL [facility] Comment on above: Vitamin D status 25 [place] Vitamin D Deficiency <20 ng/mL Insufficiency 20-29 ng/mL Sufficiency 30-100 ng/mL Toxicity >100 ng/mL NOTE: A pediatric reference range has not been established by the hair or beauty salon manager of this kit. The [place] [employer] recommends a Vitamin D level of = or >20ng/mL in infants and children. Vitamin D+Metabolites [Mass/ Vol]on 01-17-2024 Interpretation and review of laboratory results Abnormal [facility] VITAMIN D 25 HYD TOT 20.4 ng/mL Low 30-100 [facility] Comment on above: Result Comment: Vitamin D status 25 [place] Vitamin D Deficiency <20 ng/mL Insufficiency 20-29 ng/mL Sufficiency 30-100 ng/mL Toxicity >100 ng/mL NOTE: A pediatric reference range has not been established by the hair or beauty salon manager of this kit. The [place] [employer] recommends a Vitamin D level of = or >20ng/mL in infants and children. Performed By: #### P INR, 82393-4, 4679-7, FEPR, 6793-4, 2132-9, 2276-4, 2284-8, 2731-8, 05603-8 #### [facility] ([id number]) [address], [address] [place] [address] XR CHEST 1 VWon 01-17-2024 XR CHEST 1 VW XR CHEST 1 VW CHEST 1 VIEW HISTORY: Preop COMPARISON: 10/31/2021 FINDINGS: No focal airspace disease, pulmonary edema, pleural effusions, or pneumothorax. Normal cardiomediastinal silhouette. IMPRESSION: No acute cardiopulmonary disease. Finalized by Sylvester Collins MD on 01/17/2024 10:48 PM Normal [facility] XR Chest Single viewon 01-16 CHEST 1 VIEW HISTORY: Preop COMPARISON: 10/31/2021 FINDINGS: No focal airspace disease, pulmonary edema, pleural effusions, or pneumothorax. Normal cardiomediastinal silhouette. IMPRESSION: No acute cardiopulmonary disease. Finalized by Sylvester Collins MD on 01/17/2024 10:48 PM Sylvester Hicks MD - 01/17/2024 CHEST 1 VIEW HISTORY: Preop COMPARISON: 10/31/2021 FINDINGS: No focal airspace disease, pulmonary edema, pleural effusions, or pneumothorax. Normal cardiomediastinal silhouette. IMPRESSION: No acute cardiopulmonary disease. Finalized by Sylvester Collins MD on 01/17/2024 10:48 PM [facility] Radiology Study observation (narrative) [facility] XR Chest Single viewOrdered By: Sylvester Collins on 01-17-2024 [facility] Work Phone: XR FEMUR RT 2+ VIEWSon [...] Donavon Chen MD on 01/17/2024 11:[address] [facility] XR Femur - right 2 Viewson [...] Donavon Chen MD on 01/17/2024 11:42 AM Donavon Guzman MD - 01/17/2024 History: Pain. Fracture. Surgical planning study Study: Right Femur Two view study. Comparison: None Impression: Nondisplaced fracture involving the greater trochanter is appreciated. No distal femoral fracture is seen. Study is hampered by patient positioning. Mineralization appears less than expected and at least osteopenic. Continued follow-up with orthopedics is suggested. Finalized by Donavon Chen MD on 01/17/2024 11:42 AM [employer] Rad[facility] Study observation (narrative) [employer] [employer] XR Femur - right 2 ViewsOrde red By: Donavon Chen on 01-17-2024 [employer] Work Phone: aPTT Coag (PPP) [Time]on aPTT Coag (Bld) [Time] 30 s Normal 26-37 [facility] Comment on above: Performed By: #### P INR, 61551-1, 4679-7, FEPR, 6793-4, 2132- 9, 2276-4, 2284-8, 2731-8, 37011-4 #### [facility] ([id number]) [address], [address] [place] [address] Creatinine (Bld) [Mass/Vol]O rdered By: Guillermo Thornton on 08-21-2023 Creatinine [Mass/Vol] 0.8 mg/dL 0.6-1.3 [facility] Comment on above: ER/ESD physician is notified/shown all ISTAT results.Critical values may be confirmed by laboratory testing ifdeemed necessary by ER attending doctor. No Panel InformationOrdered By: Guillermo Thornton on 08-21-2023 Bedside Estimated GFR (eGFR) > 60.0 [facility] Alanine aminotransferase [En zymatic activity/volume] in Serum or PlasmaOrdered By: Guillermo Thornton on 04-24-2023 ALT [Catalytic activity/Vol] 9 U/L 7-52 [facility] Albumin [Mass/volume] in Ser um or Plasma by Bromocresol green (BCG) dye binding methoOrdered By: Guillermo Thornton on 04-24-2023 Albumin BCG dye [Mass/Vol] 4.5 g/dL 3.5-5.7 [facility] Alkaline phosphatase [Enzyma tic activity/volume] in Serum or PlasmaOrdered By: Guillermo Thornton on 04-24-2023 ALP [Catalytic activity/Vol] 46 U/L 34-104 [facility] Aspartate aminotransferase [ Enzymatic activity/volume] in Serum or PlasmaOrdered By: Guillermo Thornton on 04-24-2023 AST [Catalytic activity/Vol] 18 U/L 13-39 [facility] Bilirubin.direct [Mass/volum e] in Serum or PlasmaOrdered By: Guillermo Thornton on 04-24-2023 Bilirubin.direct [Mass/Vol] 0.10 mg/dL 0.03-0.18 [facility] Bilirubin.total [Mass/volume ] in Serum or PlasmaOrdered By: Guillermo Thornton on 04-24-2023 Bilirubin [Mass/Vol] 0.5 mg/dL 0.3-1.0 [facility] Diagnostic impression [Inter pretation] in Specimen NarrativeOrdered By: Guillermo Thornton on 04-24-2023 Diagnostic impression [employer] Jf (Unsp spec) [Interp] See comment . [facility] Comment on above: Positive HCV antibod y screen without the presence of HCVRNA is consistent with a resolved past infection or a falsepositive HCV antibody. Consider repeat testing after onemonth.Performed at: [facility] [id number] Director: Aaron Amin PhD, Phone: [phone] at: - [facility] [id number] Director: Hazel Rivera MD, Phone: [phone] Globulin Calc (S) [Mass/Vol] Ordered By: Guillermo Thornton on 04-24-2023 Globulin (S) [Mass/Vol] 2.5 g/dL [facility] Hepatitis C virus IgG Ab [Pr esence] in Serum or Plasma by ImmunoassayOrdered By: Guillermo Thornton on 04-24-2023 HCV IgG IA Ql Reactive Non Reactive [facility] No Panel InformationOrdered By: Guillermo Thornton on 04-24-2023 Hepatitis C RNA Qnt (PCR) Test Info See comment . [facility] Comment on above: The quantitative ran ge of this assay is 15 IU/mL to 100million IU/mL. Hepatitis C RNA Quantitative See comment [facility] Comment on above: HCV Not Detected Protein [Mass/volume] in Ser um or PlasmaOrdered By: Guillermo Thornton on 04-24-2023 Protein [Mass/Vol] 7.0 g/dL 6.4-8.9 [facility] Serum or plasma albumin/glob ulin mass ratioOrdered By: Guillermo Thornton on 04-24-2023 Albumin/Globulin [Mass ratio] 1.8 {ratio} [facility] Serum or plasma non-glucuron idated bilirubin measurement (mass/volume)Ordered By: Guillermo Thornton on 04-24-2023 Bilirubin.indirect [Mass/Vol] 0.4 mg/dL [facility] Alanine aminotransferase [En zymatic activity/volume] in Serum or PlasmaOrdered By: Guillermo Thornton on 03-21-2023 ALT [Catalytic activity/Vol] 10 U/L 7-52 [facility] Albumin [Mass/volume] in Ser um or Plasma by Bromocresol green (BCG) dye binding methoOrdered By: Guillermo Thornton on 03-21-2023 Albumin BCG dye [Mass/Vol] See comment 3.5-5.7 [facility] Comment on above: Specimen hemolyzed, redraw requested Alkaline phosphatase [Enzyma tic activity/volume] in Serum or PlasmaOrdered By: Guillermo Thornton on 03-21-2023 ALP [Catalytic activity/Vol] 44 U/L 34-104 [facility] Anisocytosis LM Ql (Bld)Orde red By: Guillermo Thornton on 03-21-2023 Anisocytosis Ql (Bld) Moderate [facility] Aspartate aminotransferase [ Enzymatic activity/volume] in Serum or PlasmaOrdered By: Guillermo Thornton on 03-21-2023 AST [Catalytic activity/Vol] See comment 13-39 [facility] Comment on above: Specimen hemolyzed, redraw requested Basophils Auto (Bld) [#/Vol] Ordered By: Guillermo Thornton on 03-21-2023 Basophils (Bld) [#/Vol] 0.0 10*3/uL 0.0-0.2 [facility] Basophils/100 WBC Auto (Bld) Ordered By: Guillermo Thornton on 03-21-2023 Basophils/100 WBC (Bld) 0.8 % . [facility] Bilirubin.total [Mass/volume ] in Serum or PlasmaOrdered By: Guillermo Thornton on 03-21-2023 Bilirubin [Mass/Vol] 0.5 mg/dL 0.3-1.0 [facility] Calcium [Mass/volume] in Ser um or PlasmaOrdered By: Guillermo Thornton on 03-21-2023 Calcium [Mass/Vol] 9.5 mg/dL 8.6-10.3 [facility] Carbon dioxide, total [Moles /volume] in Serum or PlasmaOrdered By: Guillermo Thornton on 03-21-2023 CO2 [Moles/Vol] 25.0 mmol/L 21.0-31.0 [facility] Chloride [Moles/volume] in S lillian or PlasmaOrdered By: Guillermo Thornton on 03-21-2023 Chloride [Moles/Vol] 103 mmol/L 98-107 [facility] Creatinine [Mass/volume] in Serum or PlasmaOrdered By: Guillermo Thornton on 03-21-2023 Creatinine [Mass/Vol] 0.84 mg/dL 0.70-1.30 [facility] Eosinophils Auto (Bld) [#/Vo l]Ordered By: Guillermo Thornton on 03-21-2023 Eosinophils (Bld) [#/Vol] 0.0 10*3/uL 0.0-0.45 [facility] Eosinophils/100 WBC Auto (Bl d)Ordered By: Guillermo Thornton on 03-21-2023 Eosinophils/100 WBC (Bld) 0.1 % . [facility] Erythrocyte distribution wid th Auto (RBC) [Ratio]Ordered By: Guillermo Thornton on 03-21-2023 Erythrocyte distribution width (RBC) [Ratio] 16.2 % 12.0-14.8 [facility] Globulin Calc (S) [Mass/Vol] Ordered By: Guillermo Thornton on 03-21-2023 Globulin (S) [Mass/Vol] TNP [facility] Comment on above: Test not performed Glucose Glucometer (BldC) [M ass/Vol]Ordered By: Guillermo Thornton on 03-21-2023 Glucose [Mass/Vol] 142 mg/dL [facility] Comment on above: Random Glucose Refer ence Range is dependent on time and content of last meal. Glucose of more than 200 mg/dL in a nonstressed, ambulatory subject supports the diagnosis of Diabetes Mellitus. Glucose [Mass/volume] in Ser um or PlasmaOrdered By: Guillermo Thornton on 03-21-2023 Glucose [Mass/Vol] 127 mg/dL 70-100 [facility] Comment on above: ADA recommended refe rence rangeRandom Glucose Reference Range is dependent on time and content of last meal. Glucose of more than 200 mg/dL in a nonstressed, ambulatory subject supports the diagnosis of Diabetes Mellitus. Hematocrit Auto (Bld) [Volum e fraction]Ordered By: Guillermo Thornton on 03-21-2023 Hematocrit (Bld) [Volume fraction] 43.2 % 38.8-50.0 [facility] Hemoglobin [Mass/volume] in BloodOrdered By: Guillermo Thornton on 03-21-2023 Hemoglobin (Bld) [Mass/Vol] 14.4 g/dL 13.0-17.0 [facility] Hepatitis C virus RNA [log u nits/volume] (viral load) in Serum or Plasma by HAI withOrdered By: Guillermo Thornton on 03-21-2023 HCV RNA HAI+probe [Log units/Vol] Not detected . [facility] INR in Platelet poor plasma by Coagulation assayOrdered By: Guillermo Thornton on 03-21-2023 INR Coag (PPP) [Relative time] 1.0 {INR} [facility] Comment on above: INR Therapeutic Rang [...] PT Coag (PPP) [Time] 11.8 s 9.0-12.9 [facility] Leukocytes [#/volume] correc joseluis for nucleated erythrocytes in Blood by Automated counOrdered By: Guillermo Thornton on 03-21-2023 WBC corrected for nucl RBC Auto (Bld) [#/Vol] 5.9 10*3/uL 4.1-10.5 [facility] Lymphocytes Auto (Bld) [#/Vo l]Ordered By: Guillermo Thornton on 03-21-2023 Lymphocytes (Bld) [#/Vol] 1.6 10*3/uL 1.00-4.8 [facility] Lymphocytes/100 WBC Auto (Bl d)Ordered By: Guillermo Thornton on 03-21-2023 Lymphocytes/100 WBC (Bld) 27.3 % . [facility] MCH Auto (RBC) [Entitic mass ]Ordered By: Guillermo Thornton on 03-21-2023 MCH (RBC) [Entitic mass] 27.8 pg 27.5-35.2 [facility] MCHC Auto (RBC) [Mass/Vol]Or dered By: Guillermo Thornton on 03-21-2023 MCHC (RBC) [Mass/Vol] 33.2 g/dL 32.5-35.6 [facility] MCV Auto (RBC) [Entitic vol] Ordered By: Guillermo Thornton on 03-21-2023 MCV (RBC) [Entitic vol] 83.8 fL 83.5-101 [facility] Microcytes LM Ql (Bld)Ordere d By: Guillermo Thornton on 03-21-2023 Microcytes Ql (Bld) Moderate [facility] Monocytes Auto (Bld) [#/Vol] Ordered By: Guillermo Thornton on 03-21-2023 Monocytes (Bld) [#/Vol] 0.5 10*3/uL 0.0-0.8 [facility] Monocytes/100 WBC Auto (Bld) Ordered By: Guillermo Thornton on 03-21-2023 Monocytes/100 WBC (Bld) 7.9 % . [facility] Neutrophils Auto (Bld) [#/Vo l]Ordered By: Guillermo Thornton on 03-21-2023 Neutrophils (Bld) [#/Vol] 3.8 10*3/uL 1.8-7.7 [facility] Neutrophils/100 WBC Auto (Bl d)Ordered By: Guillermo Thornton on 03-21-2023 Neutrophils/100 WBC (Bld) 63.9 % . [facility] No Panel InformationOrdered By: Guillermo Thornton on 03-21-2023 Estimated GFR (CKD-EPI) > 60.0 mL/Min [facility] Hepatitis C RNA (PCR) Interpret See comment . [facility] Comment on above: The quantitative ran ge of this assay is 15 IU/mL to 100million IU/mL.Performed at: [facility] [id number] Director: Hazel Rivera MD, Phone: [phone] Pharmacy Creatinine Clearance (Chem 133.96 [facility] Bedside Glucose Comment Glu2: cleaned meter [facility] Nucleated erythrocytes [Pres ence] in Blood by Automated countOrdered By: Guillermo Thornton on 03-21-2023 Nucleated RBC Auto Ql (Bld) 0.2 /100{WBC} 0-0.5 [facility] Platelet adequacy [Presence] in Blood by Light microscopyOrdered By: Guillermo Thornton on 03-21-2023 Platelets LM Ql (Bld) Decreased Normal [facility] Platelet mean volume Auto (B ld) [Entitic vol]Ordered By: Guillermo Thornton on 03-21-2023 Platelet mean volume (Bld) [Entitic vol] 11.0 fL 6.6-10.1 [facility] Platelet morphology finding [Identifier] in BloodOrdered By: Guillermo Thornton on 03-21-2023 Platelet morphology finding Nom (Bld) N/A [facility] Platelets Auto (Bld) [#/Vol] Ordered By: Guillermo Thornton on 03-21-2023 Platelets (Bld) [#/Vol] 94 10*3/uL 150-450 [facility] Platelets Large [Presence] i n Blood by Light microscopyOrdered By: Guillermo Thornton on 03-21-2023 Platelets Large LM Ql (Bld) Slight [facility] Potassium [Moles/volume] in Serum or PlasmaOrdered By: Guillermo Thornton on 03-21-2023 Potassium [Moles/Vol] See comment 3.5-5.1 [facility] Comment on above: Specimen hemolyzed, redraw requested Protein [Mass/volume] in Ser um or PlasmaOrdered By: Guillermo Thornton on 03-21-2023 Protein [Mass/Vol] See comment 6.4-8.9 [facility] Comment on above: Specimen hemolyzed, redraw requested RBC Auto (Bld) [#/Vol]Ordere d By: Guillermo Thornton on 03-21-2023 RBC (Bld) [#/Vol] 5.16 10*6/uL 3.90-5.60 [facility] RBC morphologyOrdered By: Diana Thornton on 03-21-2023 RBC morphology finding Nom (Bld) N/A [facility] Serum or plasma albumin/glob ulin mass ratioOrdered By: Guillermo Thornton on 03-21-2023 Albumin/Globulin [Mass ratio] [facility] Comment on above: Test not performed Serum or plasma nmkgm-6-fsui protein tumor marker measurement (mass/volume)Ordered By: Guillermo Thornton on 03-21-2023 AFP.tumor marker [Mass/Vol] 5.2 ng/mL 0.0-8.4 [facility] Comment on above: [facility] El ectrochemiluminescence Immunoassay(ECLIA)Values obtained with different assay methods or kits cannotbe used interchangeably. Results cannot be interpreted asabsolute evidence of the presence or absence of malignantdisease.This test is not interpretable in females.Performed at: [place] [facility] [id number] Director: Aaron Amin PhD, Phone: [phone] Serum or plasma anion gap de terminationOrdered By: Guillermo Thornton on 03-21-2023 Anion gap [Moles/Vol] [facility] Comment on above: Test not performed Sodium [Moles/volume] in Ser um or PlasmaOrdered By: Guillermo Thornton on 03-21-2023 Sodium [Moles/Vol] See comment 136-145 [facility] Comment on above: Specimen hemolyzed, redraw requested Urea nitrogen [Mass/volume] in Serum or PlasmaOrdered By: Guillermo Thornton on 03-21-2023 Urea nitrogen [Mass/Vol] 14 mg/dL 03-07 [facility] WBC Auto (Bld) [#/Vol]Ordere d By: Guillermo Ditty on 03-21-2023 WBC (Bld) [#/Vol] 5.9 10*3/uL 4.1-10.5 [facility] Lab - Reference Lab Resultso n 02-05-2021 Lab - Reference Lab Results [id number]#1.00OTG TIFF [facility] Patient Handouton 02-04-2021 Patient Handout Custom [facility] [address] [place] [address] [place] CERTIFIED February 04, [address] Smith [address] [place] [address]. [id number] Dear Ruth, A physician-patient relationship is established when the physician provides service to a person to address medical needs. Once a physician-patient relationship is established, a person remains a patient until the relationship is terminated. Individuals receiving Pain Management Service may be involuntarily terminated for an inability or unwillingness to comply with their plan of treatment or other policies of the [facility]. This Letter is [...] records to them. Sincerely, Stefan Nash MD [facility] Progress Note - Nurseon 01-13 Progress Note - Nurse patient is dischar ged from Pain Mgmt per Dr. Nash on 02/04/2021 d/t UDS results. Please see chart [Electronically Signed on: 02/04/2021 09:38 EDT] Mabel Treviño [Verified on: 02/04/2021 09:38 EDT] Mabel Treviño [facility] Coding Summaryon 01-29-2021 Coding Summary HTMLBase 64 XdwumefzXMo3pKt+PGhlYWQ+ XX8IRFVsG66iwBKvgG3TL2fJ FM6CFBFPQZJEHA7GWY2hvSC0 DCiqQ7DaxqGm UzkrdGBxKS64XQm0YOG0fSpn HQpypE6jcEXeR8s2WpSwPN29 hC27NIfnJRPdUhT7DwSqoplk bWFy F0lrXlImoXAyEvy+PHRhYmxl IHdpZHRoPScxMDAlJyBzdHls AD8dCn2nVTZmSLBhzAskyIPw OiBj j4tgXUVcNNvsAX6jvEzaT6Lt bQS7ZWXdt8t0Qa68hNW+PHRk VFD9wBefDMegs435ZfGxq5tu IDM3 jROeNSjwTZE7R93fe7K8BIVi PXUxGFK2pLG4rF5ydBshtvgk K6NvgEVhSsK4EYD4zRHjvD7g bGln nsbgpS1bNpy+Y58CRD7ZVKWI BQ7IRyp8Z7KmQalqqBB+PC90 FSOvKV03tWWxeQUjw3nksNn6 JzEw FZShLKT6yBmaETjap8KrCRZb U82ihCLjf6C8TYHhuRcxpVJg RkFwhBG3qK9rFWlugimnj1jq dzsn Uzqvx4kixp79mF90W03nKZes ADIvSLA3WCPvXKIwmLdhom6a hF8yDk2+JJzbh4sza0wjeXl1 IjIw WVCzdyUwrTqnEBP3t3XxEt98 Y4SzcIhlu1UuBth2dd00rIRh y4K4rDE9TZmpKDJncJ8tISni ZnQ6 QRQyFgVjkP32cBGeSCmpRw2d tPmhzDslYO7gODIxrweaMJXb mI7uXKGgwUSgaLtcEK0gKMDf bjtm j041RsAdLTE7LCPtkRRaY9Ti aE9vTcLlTQZeLYBhK0AmqBQw SHolN229RLmwGtR3CCDebxKk Y2Fs VFDjyKixGyQ4g7J5Kz2Rg8Ga wltfIHS5RAkpOBY7NgP5JcFc CgO2F6OuAui4IVRxgUxpRY0o J3Bh ULHevenspbqqbZS6ICQdOGXz tA44mSFkGRszXy6sn2Y3o604 FKJoHPAzbH68Dv3pePuwZNMm dCBU qD5nlfyrn8jjnkgjNoGgWBCa ROy1ALd1STYnuJxzMrUfQIS9 LbP3QLS1eECuuO9xpLzfmjej dG9w Oyc+C05kxG7eKMC4JXT9ompx JYInapKyOP08HX46D2ZdGmjq dGFibGU+CEWxcaIceRxpGP4s YmFj w1ihl6EkYKmlN4TrXPFcGUoe Hnt1SFXvSOF0kGG1bC3gJFNv DDrir5Q4iOM3K0OpnsNfmh5u b2xs TFAjHTynF60fbRBpe5J9GCSv nAJ3CTJexUvzPuWwwK25Zac+ ONRmzRixu0PaTekjs3dhd0zr dGg9 TyGnVCFfyjUxnLfuIFT9b8Pl Zf17Y60xPOtsHORyWPJsCWGp SRMltEkxxw1qvO3pTi7+PGNv bCB3 vSB4nZ3eZHXoWhG4MRzjE828 BqYpyDIsAboha9bju3fgvYw9 HzSjMCUguxPhcPplAEC4y6Ol Lz48 I17fLGtyVOKkSWIfLRMoLXVo iCqlho2orO2uJg4+TB7tu5xy zm52fY38wFX+JSTdIFI1eHvf PSdw QTReiA6dPIknDhK2VAGjWcNt eX17qDUxCTqfIo7fkDvkaCfy CA4sVIUtxygit361WhIcu6di IDEw wDXgUSiuBQE3M09oa5J4EHNm ZQIxGDF0tAA6lN7cfZnbywhv bGVmdDsgdmVydGljYWwtYWxp Z246 IHRvcDsnPlBhdGllbnQgTmFt SXy4K0UgApo5IWIzqLgoCR7y wETgTRmoJs2whGxoxHbcME3s NTBp rnxux541GkPai5hmBSMwvSXs AIscTUQ0F85im9B8ZTAjIOXm UEJ7qDB7kN8bgEzkiyiqmGKd dDsg kjAhwQnnAXshERobD438NKUp sHsgOgVujjAqGBOrjRU5CB11 FY11xXUon8H1yEI4O7NaLIHv bmct kinxpEU6BVNdAUXreW51Sx6g vBlhXy3gJUYvENS0QBZaaIMu X9DmhK0eSuHeWCNcAXVwT8Xn eHQt COvoY754XPmtDhY3ACMwjcJo Y3LwXDVaaYibMqM1a6Z4Hb5H R7W4IW27OU18mXOdq8F6cKE4 J3Bh YXAxmzmfveddbVI6MQQySZEq wV52Rx1kzEzcQy6nCKYdGVK0 BFIbsDVkA9MkdM9cTbYkVXZp MDAw I9ZujPRyVMukA233UHkzBpA2 LNVfgdEaD0VxMEHlkXbjEsW4 d5U0Pv8JLFo9LO38BA95nBMa c3R5 oEO3K0XqFURfeachkekgsJW3 FUKpKCGtnK14Pr1oyZglZo3w IFEvQUJ3NZLefOJsV3IrmS3t OiAj TWMmDHSaP9KguZFgSYdgF151 STxcQuK4VBBbufPwJ4NhQPRu nSlfTcM4p5Q6Xq5DICOkWJ26 IFR5 sMD7HB66EC12R0RmWhbwcCYk bGU+PHRhYmxlIHdpZHRoPScx XWAzFrUphEitTW5lYe9fRRSo LWNv bUlljORsZtWvp0bcNGOpGMmh QK5blUmaJ5HwhQJ3SNWih0b9 Re08K87jF2BimKB+PGNvbCB3 aWR0 iC4dKzMdYjW3FEeaX228WiEg wZUzEybtb3rty3nquOx3QuO9 ZGPagzMrfPvaHZM2k6HdGk60 Y29s IHdpZHRoPSIxNSUiIHZhbGln pp5ibX7wEz7+MQEstVS0fFQ7 gV1jWvQaOkT6IDgzN140ZyQx cCIv Qiltc5rjs0aveJw2AwLpNNJz woQtfZvcSRX0a3BfEo81R3Xb pGauz5FaAnl6bo17bJMux9X0 bGU9 N7AqYVXgvrcdiZEcmQzxPV9x FQVxglgnWMKpnY2fBYWfV0k0 JeLjFyF4DBotG0NjcwQ4MBWe cHQg UJfvUAK9W08rx8I9XIRxUULf WBC8xVP8oJ3kzGrpmxiczWKk pKbhxwJjsKneIIowKGbjB524 IHRv uJqgYGZyuY1hTCOkeEUsxKho DT0fHKEnwwbyIxoNMnINROOS B25JTWJKGRSLZZTSSLk8U5Qw Pjx0 TVVtaDvuSQ4iyPVvUXwnVf5d zOdqcMvkDQ6yTHXxjvwnYXRm dQ7tDSEqdKNbwImlJH9lBUSy bjtm p465IpHdYVY3DLPwwRHvN9Gz cR7tMmIpPWAuWRAtE5VemRCm XUndA919EIuwZgB6BEVkwpVw Y2Fs MYZnxCuuRlR0u6E1Al3vBB3f Hb3hDHA1NP29HF94fIIff0V4 hOH7J3EfFFUahhvxhprliRB0 IDAu WAFndA78jIMgZSzkCe1zj0P2 k993SQVpJGHtiK24Cz9acJkr RKSkkYBApD5gdfhhm7msljqj IzAw REPrGOd3VRv0JLYvbTroDzOg HRS6QyC9TRS7oWTlrG9zpUyi yzucoH4oSae+NTIgWWVhcnM8 L3Rk Zza6YSCwwJajTG1aeDMgNKnj Af2flCvvbDlhAP1zUGTuxxgx AXPkdW7fUKXewWPmcRgkFK7r NTBp dllid992OxJjBEH7QCHgyLUs H3QsoZ0lRvGvOIWxSLCtY0En rQFgQSfdK535UAcnOoJ6ZNTf cnRp Q3EjOIGqmBlpIaB7y2K6Uv0S RVfQMN71MR11jWXkq2U3dOV5 W3UbHJZomkxliplsfGD8PQQn MDUw hX32oBGzCDvgKe5dx4S8m775 PSCdNKOukG75Fn6lvMglNGLb eSLEhQ2uwcgqx3pczvbdKaOe MDAw JWy7DNr6TVAedZvkHkCmKUR9 NwH8OBI6nZEjpE5dcJzmuujv tM7dZuj+W1K3W5LiUkdzfAJ+ PC90 HJNzUP83gQCgpUWuy8xwlSr8 QkLgZSJjHER3wLzeAAzrm2Ot FZObT74feINds5B0RNMseFkc cHNl LsRafQT9wG8cVTnzwxcdx0qd fkhwKyneh9qjso97xB69Y53v IHdpZHRoPSIzMCUiIHZhbGln bj0i vM4zBd4+UKHksUQ8qGW5gQ8s ShEaZgQ9HAdbM328XkQwwNKm Gsees7xqi5mhzBm4HkMtXOFs dmFs fFfsLZO6p2LgDh96B25rVCal MLXiWFMsUBWmOHQnsSwsmi8z vC5cTn4+QP7wr0mimk91lX89 dHI+ BJGwWMN4yTuvCYksGCKxiE3v XHpxNwG7CHBiJzQncL95rNJb GXiySd2fhCxdrAktTF7tUOJs bjtm y153AiXdf8mqHZQfvYYoEWfq PLG6H53uh8B7DWPhXBQqHRF7 sBX0xZ5ulBhmzfmwcKTosLvh dmVy sBtyPTyyQSmqQ290EQBmfGdu NrZjrKItB5gvocHIHH0hNlse dGQ+HDPtCWJ5lYpaVFniQRWs aW5n HLFlC5h8LoLgYkY5BDorF4Fm tfT6RUGyjEZyOWEunXTYnK9e srpuf4osmrxqAfTrPEBnERk9 ZXh0 PSKdoKrsMhGiFXQ4HkY1MIL2 kRMigP1itCleekmujX1jOek+ RklOOjwvdGQ+RFNoYAM1kAfy PSdw LXByjL6pEMWlR8c4KpZmYdZ8 TXbnZ6SwlmL5UHLiqQOpZZYs vQEXzT1nqtamg5lswdplAyTu MDAw ZTk1MUy1GHLuoGpdZmJlVQO6 FnO7ZBR8gIVgfR2ajKafzebt kP4zThw+TVJOOjwvdGQ+PHRk IHN0 wVueVRqjPLWyfB3zJJIpA9t3 ZlKmZqZ5HTnuN3PmnmH5SSYq yCNcMYKfeNJQpQ7rtlaga2hs cjog NyLyYJKnBAo4DOa5CSFfbJvs YiQyIJD9AjO0WTO7tNTkyK9o hKaafpwiqK8jAja+RMN1ULX8 PC90 QJ19S3XfHkmloZUhsYZ+PHRh YmxlIHdpZHRoPScxMDAlJyBz lBfqGF2pQg5qZKDiZZPabFsf cHNl OiB (more content not included)... [facility] Progress Note - Provideron 0 01-29-2021 Progress Note - Provider [id number]#1.00OTG TIFF [facility] Progress Note - Nurseon 12-12 Progress Note - Nurse Patient called in today for refill of oxycodone. Refill sent to Nancy Johnson. Oarrs reviewed [Electronically Signed on: 12/22/2020 10:17 EDT] Azul Espitia [Verified on: 12/22/2020 10:17 EDT] Azul Espitia [facility] Progress Note - Nurseon 11-12 Progress Note - Nurse PATIENT CALLED IN REFILL REQUEST. OARRS WAS REVIEWED. PATIENT IS COMPLIANT. REFILL REQUEST WAS SENT TO NANCY JOHNSON FOR HER APPROVAL. FOLLOW UP IS IN PROGRESS. [Electronically Signed on: 11/24/2020 08:47 EDT] Karolina Walker [Verified on: 11/24/2020 08:47 EDT] Aaron Karolina [facility] Lab - Reference Lab Resultso n 11-19-2020 Lab - Reference Lab Results [id number]#1.00OTG TIFF [facility] COVID-19 SOFIAon 10-28-2020 COVID-19 ROMA Negative Negative [facility] Comment on above: This is a duplicate Roma SARS Antigen (SHANELL) result to be used for statistical tracking purpose only. Otheron 10-28-2020 SARS Antigen (LFIA) [facility] Progress Note - Nurseon 10-12 Progress Note - Nurse PATIENT CALLED IN REFILL REQUEST. OARRS WAS REVIEWED. PATIENT IS COMPLIANT. REFILL REQUEST WAS SENT TO NANCY JOHNSON FOR HER APPROVAL. FOLLOW UP IS IN PROGRESS. [Electronically Signed on: 10/27/2020 11:51 EDT] Karolina Walker [Verified on: 10/27/2020 11:51 EDT] Karolina Walker [facility] Coding Summaryon 10-22-2020 Coding Summary HTMLBase 64 YhmfluoaCQq4zCf+PGhlYWQ+ EG3UTAIkV65mjUAycH8FA0vI SX9XLCMIVRXEWA4NFF5uoPE3 LRuyJ5QemqEp CjcvjMLdTS08URc2SRI7nJmz YOgmrQ9ppXKbT0s5SaZjBV16 dA26XFldITQqFmK3OnUgmprk bWFy Q7ydCkHziATaLff+PHRhYmxl IHdpZHRoPScxMDAlJyBzdHls IA4vKc6fJQOyTKQeiDhbeDOi OiBj j8cuKXNeGEntVS0gnJciU7Ej fCT5OJCew9b8Ew12pCP+PHRk PAQ5lWwtPPqwn176ToCuz1mc IDM3 fVFnWXsnMGK6F22rs9J4VFIh YYNdOAB2jKM6vW3qtFqqgqyd Q7ZjeRZmPpG4VBR2uNMbqM5y bGln lpjnnO2jIcy+F57FRE5BYXAX YV1FCyt7X6NcPawifCQ+PC90 CYNzDP72pXDthSPkr0znuEt5 JzEw CEDvVJH2dGlyKWvaz9RdGYCx J99srWQxh2P3UKBlxKtkfBAt QaUybZB0cI8lVEtsmevvt6rn dzsn Ujsiy1uxra07zH98I06nAAtt YCIaKWQ3JSTaKIMibHrsho3u zT4wYf6+GFlyq5cpb4ofqMn0 IjIw QXSgzuFyuEgaVQN4y8BxUm16 O1GyeNctf9OnUob3py78cJQl z4U3iLI2BNazFASttI5wKXvr ZnQ6 ZKFgMqOfaI14aUUnCFblLd3z aDadsUkcLW4vLVExqoetXTUa eH7sFUPpaXJzmWzvCW4aQFOm bjtm z102StYbMRQ7HNUpkKAsV6Gk mY3jHaGmYANsJMHdD2AtwCRe ETpeX569GKwnDdX6MSQdzjNd Y2Fs JBKrsMwkVqW9u2A7Im4Bg7Um rijqXYI8WQghSOVyAdViPlCt NvY7T7QvTmh7WCXekFcaIC5m J3Bh JLNfkishjkvpcXF9NEJcTFEz oX81hQLhOPfuPr3dz6C2p464 ADKrFQPxpC38Ss1bvBnrCLDg dCBU zY0opproi8tambzsVkElXOMd CGg0KHk8ERTfcNrnAlXsUNI2 ZoV0NQY1pUBgbQ2tpAafxehb dG9w Oyc+G64pgF1lQEC7RNE8vuvx FKQrhrFsCD38FK08P6JhRrbl dGFibGU+DDMplkFbcGanQY8o YmFj u5kef6StKWhfC1WhMTDyGTks Ogj1MRYgTDF7bPM0tG0rGAKu KPhqt3Y4wBZ2W1TromDhqc6o b2xs KRNsHGkbV95mhXKbg7U1RSAb tGB5QNIfbFdxZdXhtG26Jmu+ TAMsnKuoi5LdVkpwo9xsq1ku dGg9 JeWxECDljhZnxQpnAHM0n7Ln Te98J65uILtfJBRuUHPsLESs VZWrhYkxbu4hmJ9qEz9+PGNv bCB3 wXT8vV4jFRZzLaR1ZAjbV870 YaLarUGlFojdn4efx1gqrQz8 AnEbJQRqvrNcfPudIEU3d1Yv Lz48 J32aHIxsCKEpMRUpVDZgBKBw vGmumg0coH0kPe4+OX6po4xr ke65oB68bOP+EIOiJZM5gVck PSdw MLVyfL9hZRgjZhN7IHQjPoAw yZ11aSLpXUwfUa6rwSeebZel MA9uCCQoneyhq897KtNjm4un IDEw iIPbLYoiMBS7V48kr8H6YMHx SJCrSKS5uQO7yD3wtPfxkbxn bGVmdDsgdmVydGljYWwtYWxp Z246 IHRvcDsnPlBhdGllbnQgTmFt ANn5E2LcSiv9AIFvaTspDP9r mRZpGHooKa8yeFrouOxlJH6m NTBp yfgqq899ZiQrg3zvVZLjcQDj ALedDSA4H36bj9T8DCOpLACu RDR3yKK6tL2asLcdrgkjjYMt dDsg nrYbkUmvYBdlPGolG490GDXq bYehTzTccoUmGQJrfYZ7BH15 QB43xJEuo5V7vBH0B1ZzAZLm bmct rpisrUT7WVUeZITteI57Mg4w aScrHd5bMRAjMLZ6EZZxdOFn T3GrbK3sYkYzVHTaWILmF8Gj eHQt TPspK737RDzxMuN1LEIgtaEh A2IwQJYvsOnjCsG9u6K6Bp9I H6Q1ZS35XU61aPPai3E0eEX9 J3Bh PYVfwnkbsjdvaZM5DTIoFUMr uB21Nn1lmCwyGj7wKCXbHGG8 RQMqmDGlW9WguF6jKyOfLUIy MDAw S6MadXQlGUopZ828KOgrHiT9 YSIzekRvH9TaKBGccCveQiS3 d4B5Zo1SCRj1VQ19NQ55xHZf c3R5 eNG8Z7TmHNTeqvwphaojxZW7 NDRzQDWjaA26Ha2hsKftGn7w HWLfHZW3IUSnxFStH1BtlI5y OiAj EEQdWLTqT3TywQQaZKhyK007 BBljIhE5AUDyzaQyL8YyYZFl zVsnWyM7w3W6Kn2AJWUxWZ54 IFR5 aAN7UO18DD81Z2VuKoutmEVa bGU+PHRhYmxlIHdpZHRoPScx XPDzJmBakCrpIA0wRk0nLFSp LWNv nRzejBDrEpVqz7zqVLAxEIro YJ9zsAhxT0LldGO7LNRwd2y1 Fm63T20fT5BdtYF+PGNvbCB3 aWR0 oK8vYiYqBxU9TLroC876PyUn nXMtOuzeq3hep4oviIk1EoE3 NPYknnUlpKjtZJW8i1FrGz58 Y29s IHdpZHRoPSIxNSUiIHZhbGln vg4pmH6yGy4+BWVwxZB5uMP1 pE0tAzJtZjY8BQieS079LoMa cCIv Pekzh5lsj7wtdQx5PwGqIRRv giWtqCecEYQ0h7IfIx22B0Yf tKxky0PhUvv4rl86fAHkj0T4 bGU9 N4OjBHLxztatrQLlkJzqZM6l RHIqcdugAAWzwY1pXBVjG2m1 RiBuRkJ0FGjaH4GbxbS4UFZy cHQg AIrzQGC5Q13ut5N0ITNgNDSa ZGC0tOV7mZ8isSjoxideyBSf zQrplkTvoZnyIPalRUanX344 IHRv tCbyRQPbmP0aUEMvdOExoJpe LZ1xIKNjxpwtUrhRAcWDLQHH Z75BDMMCOMVXUBBJEAs0N8Hj Pjx0 VAQjmVqfES3jfMUrTDbdCv1e tZuujIdlTX8hFABupopuUBVb zM3uZTPncUIhyGraLA7aLTWp bjtm m374NjQpPBF8KSRgsBZyO0Ns sL2yAqGjZMPdDEUcF8TurJHc TRdrO756VGnxTfA3AQOtcyJv Y2Fs LQRnnJmeYpP3t1H8Ev2nKE5g Wi4qSDW8JB32TX62hGPiy2M6 sUJ1B1GvRTTdrfslakkhoUZ0 IDAu ZSWjbV13vADsJWufHd9cb3H4 p529KLRxCOPtpC23Hk5spJly WOTqdPRIhJ3sqykrg9zpetyl IzAw JIIeXDn8ZVg7TRRzaJkrXwEs UUH4WhJ8YXT2eCRnaO6vcLoy tifztP4dJtl+NTIgWWVhcnM8 L3Rk Ftb4XSRujKyyNG7ueSGjPKcb Zg4peBadkNibXJ3lQGNlhwvy CDNjzU7pQTIyePQylVbgNT9t NTBp tvhnf005UrChHMQ9MLCuxWJv E9ArsM6uOlNeGCBuBNWvQ8Sm pBWxZUekP690YExfEtT9ANAp cnRp N9GfFOTvqQdiTxL0j2N6Lb9H UUuUUD70PR70mMAlu9E7gXH6 Y8JoTDRwypaddlnlxIR8RKCj MDUw qX13zVLaOFfwKp7bo4T2y177 RQSxUUQmhX12Mr1vcQlbZYIe eTCDkV7ulkfoq6jujxwgEcRc MDAw PWb5GXz6VWXqlGwoPzUnHNR1 IaN0PDE2yKTddL8auHikoxqc jA2hMis+T0C9K6YlXaianIU+ PC90 XZPbAQ66wNKevELdy6oedRs2 YiFxLJCbDPG7jEnpUTany3Ay HKTtQ17hfLXdz6E2ZPYyjXvm cHNl RlHlpIZ4nY3mLUdgdcfzx4hj ziwuPzber6krss79bL61M10p IHdpZHRoPSIzMCUiIHZhbGln bj0i xM4qEv5+DTLnlVU7bTV5fX5o RoGgKjV5ECmyV355NiXlsFUz Vxesn4mrw5uclOj2YvBdYXIm dmFs yIkvSBS9n5AjMz28X22hEYjl DERiTQChHWVgWNIynAwlxx9f dR0sGj9+ML6qk8cvcb40aT71 dHI+ RSNiMZF8yKpiHFonPQRmtL9i ZReeLcM4SRIzKeShgP18pTEw NVzfVv8uqCisfBtvPX1sLIBu bjtm t129JtEsl4ysWUMudBSdVAky WBH9G82gb5D7TYBtMHWtSSM2 cGH2eF2nqCelpundlTDkiMlk dmVy zVkjSSmfTGqzG683XODykZco PuVxvAHsY0ovrhMWDZ6qOoqq dGQ+KIHfTBG5zGhlRRegHDDa aW5n OGFlH3c8KeHaViT1QItvM9Zu ivA2GMIwwYCjUKFxpYQWoN5z bzive8urmuwlKcHuKBTlYXj0 ZXh0 ICJvbSzlNgNfQSC0CsZ5LDV5 kYVvtW2jeQutlcfybY0tHrg+ RklOOjwvdGQ+IWUvHEQ3yIil PSdw PPMpkY7nUKOsV8r1DuMaOrA5 SEnrT7BmjjX5FQDvhELpFJGq hDWQzK7rdynor9bvbqvyYaRs MDAw BFa8TSh1WEYlgKuhAaLzEFP3 HaO6UYV9cIZlwW1mdJiufufh nU5hKqv+TVJOOjwvdGQ+PHRk IHN0 jTaqJXuyEZTsaZ8iMLGwI8c2 ChPmEyJ9LRenM2AfzsX2EMJs kHKkPEErgIESkA0sxxowa0op cjog SbSfRYAxVQc7HOb3YAOeyIqm SuKsJMQ4RnB5GWG4wYIdtW1u eIrkechvoZ9iJbf+NWB5TNL1 PC90 HK73K2SgUqldgRXejTR+PHRh YmxlIHdpZHRoPScxMDAlJyBz wHvdQQ8zKl5iXCWjHAQqxQze cHNl OiB (more content not included)... [facility] Controlled Substances Lanny bañuelos 10-22-2020 Controlled Substances Agreements [id number]#1.00OTG [facility] Controlled Substances Agreements [id number]#1.00OTG [facility] Progress Note - Provideron 0 10-22-2020 Progress Note - Provider [id number]#1.00OTG [facility] Progress Note - Nurseon 02- Progress Note - Nurse Patient called requesting a refill on Percocet. OARRS is reviewed. Patient is compliant. Next appointment is scheduled. Order is sent to Nancy Johnson NP for approval and signature. [Electronically Signed on: 09/29/2020 14:18 EST] Mabel Treviño [Verified on: 09/29/2020 14:18 EST] Treviño, Mabel [facility] Progress Note - Nurseon Progress Note - Nurse patient called in refill request for oxycodone and trazodone. OARRS was reviewed. Patient is compliant. Refill request has been sent to Nancy Johnson for her approval. Follow up is in progress. [Electronically Signed on: 07/21/2020 13:41 EST] Karolina Walker [Verified on: 07/21/2020 13:41 EST] Karolina Walker [facility] Coding Summaryon 06-30-2020 Coding Summary CODING DATE: 020 [facility] STATUS: Home PAYOR: Medicare ADMIT DX: REASON [...] Chanelle Gillis Date Saved: 06/30/2020 12:44 pm [facility] Progress Note - Provideron 1 08-26-2019 Progress Note - Provider [id number]#1.00OTG TIFF [facility] Progress Note - Nurseon 05-15 Progress Note - Nurse pt calls for a ref ill on oxycodone. oarrs is reviewed and patient is complaint. order is sent to nancy johnson NP for approval. [Electronically Signed on: 06/02/2020 10:26 EDT] Mabel Treviño [Verified on: 06/02/2020 10:26 EDT] Mabel Treviño [facility] COVID-19 PCRon 05-15-2020 SARS-CoV-2, HAI Not Detected Normal Not Detected [facility] Comment on above: Result Comment: This nucleic acid amplification test was developed and its performance characteristics determined by [employer] Nucleic acid amplification tests include PCR and [...] assay. Performed By: #### C VDPCR #### [facility] [address] [place] [address] Paige Rider XR CHEST 2 Von 05-14-2020 [...] by: ANSELMO GARCÍA Date: 2020-05-14 03:55 Normal [facility] Progress Note - Nurseon 04-14 Progress Note - Nurse Called for refill of oxycodone. Oarrs reviewed and patient is compliant. Follow up in place. Order proposed to Millie Johnson CNP for review. [Electronically Signed on: 04/28/2020 09:41 EDT] Uzma Arriola RN [Verified on: 04/28/2020 09:41 EDT] Uzma Arriola RN [facility] Progress Note - Nurseon 03-16 Progress Note - Nurse Called for refill of gabapentin. Oarrs reviewed and patient is compliant. Follow up in place. Order proposed to Millie Johnson CNP for review. [Electronically Signed on: 04/13/2020 10:11 EDT] Uzma Arriola RN [Verified on: 04/13/2020 10:11 EDT] Uzma Arriola RN [facility] Progress Note - Nurseon 03-14 Progress Note - Nurse Called for refill of oxycodone. Oarrs reviewed and patient is compliant. Follow up in place. Order proposed to Millie Johnson CNP for review. [Electronically Signed on: 03/31/2020 11:24 EDT] Uzma Arriola RN [Verified on: 03/31/2020 11:24 EDT] Uzma Arriola RN [facility] Progress Note - Provideron 0 03-16-2020 Progress Note - Provider [id number]#1.00OTG TIFF [facility] Coding Summaryon 03-12-2020 Coding Summary CODING DATE: 020 [facility] STATUS: Home PAYOR: Medicare ADMIT DX: REASON FOR VISIT DX: M54.5 Low back pain FINAL DX: PRINCIPAL: M54.5 Low back pain SECONDARY: M47.816 Spondylosis without myelopathy or radiculopathy, lumbar region G89.4 Chronic pain syndrome 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 However, the narrative phrase printed from the coding software may appear abbreviated, or result in slightly different terminology. Coded By: Chanelle Gillis Date Saved: 03/12/2020 01:20 pm [facility] Progress Note - Nurseon 07- Progress Note - Nurse pt calls states he needs a refill on oxycodone. oarrs is reviewed and pt is complaint. order is sent to nancy johnson Np for approval and signature, [Electronically Signed on: 03/03/2020 13:17 EDT] Mabel Treviño [Verified on: 03/03/2020 13:17 EDT] Mabel Treviño [facility] Basic Metabolic Panlon 04-27 Anion gap 3 molar conc 10 mmol/L Normal 9-18 [facility] Comment on above: Performed By: #### C BCDIF, BMP, MG1, PHOS ####[address] [phone] Calcium mass conc 8.1 mg/dL Low 8.5-10.5 [facility] Comment on above: Performed By: #### C BCDIF, BMP, MG1, PHOS ####[address] [phone] Chloride molar conc 102 mmol/L Normal 98-110 [facility] Comment on above: Performed By: #### C BCDIF, BMP, MG1, PHOS ####[address] [phone] CO2 molar conc 25 mmol/L Normal 23-32 [facility] Comment on above: Performed By: #### C BCDIF, BMP, MG1, PHOS ####[place] [phone] Creatinine mass conc 0.69 mg/dL Low 0.70-1.40 [facility] Comment on above: Performed By: #### C BCDIF, BMP, MG1, PHOS ####[place] [phone] eGFR- Amer. >60 Normal >60 [facility] Comment on above: Performed By: #### C BCDIF, BMP, MG1, PHOS ####[place] [phone] GFR/1.73 sq M predicted among non-blacks MDRD vol rate/area (S/P/Bld) mL/min/{1.73_m2} Normal >60 [facility] Comment on above: Performed By: #### C BCDIF, BMP, MG1, PHOS ####[place] [phone] Glucose mass conc 161 mg/dL High 65-100 [facility] Comment on above: Performed By: #### C BCDIF, BMP, MG1, PHOS ####[place] [phone] Potassium molar conc 3.9 mmol/L Normal 3.5-5.0 [facility] Comment on above: Performed By: #### C BCDIF, BMP, MG1, PHOS ####[place] [phone] Sodium molar conc 137 mmol/L Normal 135-146 [facility] Comment on above: Performed By: #### C BCDIF, BMP, MG1, PHOS ####[place] [phone] Urea nitrogen mass conc 6 mg/dL Low 10-25 [facility] Comment on above: Performed By: #### C BCDIF, BMP, MG1, PHOS ####[place] [phone] CASE MANAGEMon 04-27-2018 CASE MANAGEM HNO ID: [id number]: Tamra (Rn) Fei, RNService: Care ManagementAuthor Type: Registered NurseType: Care Mgt Progress NoteFiled: 04/27/2018 2:58 PMNote Text:CARE MANAGEMENT PROGRESS NOTESERVICE DATE: 04/27/2018SERVICE TIME: 2:53 PM LOS: 4 daysPt is post op Colectomy.Pt resides with his grandparents.Pt noted ambulating in the bonner with no difficulty.No skilled dc needs are identified.SIGNATURE: Tamra Enamorado, RN,BSN PATIENT NAME: Ruth SmithDATE: April 27, 2018 : 2:53 PM PAGER/CONTACT #: [phone] Normal [facility] CBC and Differentialon 04-27 Abs Baso <0.03 Normal <0.11 [facility] Comment on above: Performed By: #### C BCDIF, BMP, MG1, PHOS ####[place] [phone] Abs [place] 0.52 k/uL Normal <0.87 [facility] Comment on above: Performed By: #### C BCDIF, BMP, MG1, PHOS ####[place] [phone] Abs Neut 3.90 k/uL Normal 1.45-7.50 [facility] Comment on above: Performed By: #### C BCDIF, BMP, MG1, PHOS ####[place] [phone] Basophils/100 WBC Auto (Bld) 0.2 % Normal [facility] Comment on above: Performed By: #### C BCDIF, BMP, MG1, PHOS ####[place] [phone] DTYPE Auto Diff Normal [facility] Comment on above: Performed By: #### C BCDIF, BMP, MG1, PHOS ####[place] [phone] Eosinophils Auto #/vol (Bld) 10*3/uL Normal <0.46 [facility] Comment on above: Performed By: #### C BCDIF, BMP, MG1, PHOS ####[place] [phone] Eosinophils/100 WBC Auto (Bld) 0.0 % Normal [facility] Comment on above: Performed By: #### C BCDIF, BMP, MG1, PHOS ####[place] [phone] Erythrocyte distribution width Auto Ratio (RBC) 14.7 % Normal 11.5-15.0 [facility] Comment on above: Performed By: #### C BCDIF, BMP, MG1, PHOS ####[place] [phone] Hematocrit Auto Volume Fraction (Bld) 34.6 % Low 39.0-51.0 [facility] Comment on above: Performed By: #### C BCDIF, BMP, MG1, PHOS ####[place] [phone] Hemoglobin mass conc (Bld) 11.4 g/dL Low 13.0-17.0 [facility] Comment on above: Performed By: #### C BCDIF, BMP, MG1, PHOS ####[place] [phone] Lymphocytes Auto #/vol (Bld) 1.57 10*3/uL Normal 1.00-4.00 [facility] Comment on above: Performed By: #### C BCDIF, BMP, MG1, PHOS ####[place] [phone] Lymphocytes/100 WBC Auto (Bld) 26.2 % Normal [facility] Comment on above: Performed By: #### C BCDIF, BMP, MG1, PHOS ####[place] [phone] MCH Auto Entitic mass (RBC) 28.9 pG Normal 26.0-34.0 [facility] Comment on above: Performed By: #### C BCDIF, BMP, MG1, PHOS ####[place] [phone] MCHC Auto mass conc (RBC) 32.9 g/dL Normal 30.5-36.0 [facility] Comment on above: Performed By: #### C BCDIF, BMP, MG1, PHOS ####[place] [phone] MCV Auto Entitic volume (RBC) 87.8 fL Normal 80.0-100.0 [facility] Comment on above: Performed By: #### C BCDIF, BMP, MG1, PHOS ####[place] [phone] Monocytes/100 WBC Auto (Bld) 8.7 % Normal [facility] Comment on above: Performed By: #### C BCDIF, BMP, MG1, PHOS ####[place] [address] Neutrophils/100 WBC Auto (Bld) 64.9 % Normal [facility] Comment on above: Performed By: #### C BCDIF, BMP, MG1, PHOS ####[place] [phone] Platelet mean volume Auto Entitic volume (Bld) 12.5 fL Normal 9.0-12.7 [facility] Comment on above: Performed By: #### C BCDIF, BMP, MG1, PHOS ####[place] [phone] Platelets Auto #/vol (Bld) 77 10*3/uL Low 150-400 [facility] Comment on above: Result Comment: No c lot detected.Sample checked for a clot. Performed By: #### C BCDIF, BMP, MG1, PHOS ####[place] [phone] RBC Auto #/vol (Bld) 3.94 10*6/uL Low 4.20-6.00 [facility] Comment on above: Performed By: #### C BCDIF, BMP, MG1, PHOS ####[facility] [place], [place] [phone] WBC Auto #/vol (Bld) 6.00 10*3/uL Normal 3.70-11.00 [facility] Comment on above: Performed By: #### C BCDIF, BMP, MG1, PHOS ####[facility] [place], [place] [phone] CNDSon 04-27-2018 CNDS HNO ID: [id number]: Stoney (Alexis) Shruthiervice: ColorectalAuthor Type: ResidentType: Discharge SummariesFiled: 04/27/2018 5:08 PMNote Text:DISCHARGE SUMMARYPATIENT NAME: Ruth Smith ADMISSION DATE: 04/23/2018MRN: [id number] DISCHARGE DATE: 04/27/2018Attending: Des Whittingtoneason for Hospitalization: elective sigmoid colectomyPrincipal Problem: Colon [...] for cancer and a flat polyp and [id number] is segmental resection. Patient has a history of diabetes andsignificant history of myocardial infarction in his family. Cardiologyclearance was obtained.Hospital Course:The patient was admitted to the hospital with the above history. Thepatient was transferred to the OR and a laparoscopic hand assisted sigmoidcolectomy, with side to side stapled colorectal anastomosis was performed.Patient tolerated the procedure well and was transferred to the [facility] floor. During the post op course patient [...] 27, 2018 : 5:01 PM PAGER/CONTACT #: [phone] Normal [facility] Magnesiumon 04-27-2018 Magnesium mass conc 1.6 mg/dL Low 1.7-2.6 [facility] Comment on above: Performed By: #### C MODESTAF, BMP, MG1, PHOS ####[facility] [place], [place] [phone] PROGRESSon 04-27-2018 Protein mass conc HNO ID: [id number]: Stoney Hawkinservice: ColorectalAuthor Type: ResidentType: Progress NotesFiled: 04/27/2018 9:12 AMNote Text:Colorectal Surgery Progress NoteName: Ruth SmithMRN: [id number] al update:Overall, patient is doing well. Overnight, reports being uncomfortable,and sore. Reports feeling bloated-Pain controlled with SCLEROSCOPE TESTER-Denies fevers, chills, chest pain, shortness of breath-No [...] erythema noted.- Chest: Non-labored, symmetrical respirations.Date 04/26/18 07 - 04/27/18 0659 04/27/18 07 - 04/28/18 0659Shift 6521-9569 5033-6429 1000-5134 24 Hour Total 7339-7924 9790-48812021-4335 24 Hour TotalINTAKE PO 2490 342 7100 PO 9351 409 2300 IV 204 672 695 6116 NS 0.9% 204 830 500 6256 Shift Total 1404 814 518 2736OUTPUT Urine 2800 709 862 1756 750 750 Tube Output ([REMOVED] Indwelling Urinary Catheter 04/25/18 1019Assessment Coude 04/27/18 0735) 2800 616 731 8752 750 750 Shift Total 2800 224 852 0476 750 750Weight (kg) 120 120 120 120 [...] doing well.PLAN:-diet: continue GIS-palacios to be discontinued-takedown SCLEROSCOPE TESTER today-PT/OT- Encourage incentive spirometry and ambulation- SCD's and SQH for DVT prophylaxis- Dispo: continue care on RNFSIGNATURE: Stoney Crawford MD PATIENT NAME: Ruth FernandezTE: April 27, 2018 : 9:08 AM PAGER/CONTACT #: [phone] Normal [facility] Phosphoruson 04-27-2018 Phosphate mass conc 2.9 mg/dL Normal 2.5-4.5 [facility] Comment on above: Performed By: #### C BCDIF, BMP, MG1, PHOS ####[place] [id number] [place], [place] [phone] THERAPY NTon 04-27-2018 THERAPY NT HNO ID: [id number]: Yady (Pt) BurtoneService: Physical TherapyAuthor Type: Physical TherapistType: Therapy (PT/OT/Speech/Resp)Filed : 04/27/2018 11:02 AMNote Text:PHYSICAL THERAPY MISSED VISITSERVICE DATE: 04/27/2018SERVICE TIME: 1030 to 1030ROOM: [id number] Treatment. Patient not seen due to Other: See Comment. Patientobserved walking independently in the halls.SIGNATURE: Yady Cloud PT PATIENT NAME: Ruth FernandezTE: April 27, 2018 : 11:00 AM Normal [facility] Basic Metabolic Panlon 04-26 Anion gap 3 molar conc 10 mmol/L Normal 05-01 [facility] Comment on above: Performed By: #### B MP, MG1, PHOS, CBCDIF ####[place] [id number] [place], [place] [phone] Calcium mass conc 8.4 mg/dL Low 8.5-10.5 [facility] Comment on above: Performed By: #### B MP, MG1, PHOS, CBCDIF ####[place] [phone] Chloride molar conc 102 mmol/L Normal 98-110 [facility] Comment on above: Performed By: #### B MP, MG1, PHOS, CBCDIF ####[place] [phone] CO2 molar conc 24 mmol/L Normal 23-32 [facility] Comment on above: Performed By: #### B MP, MG1, PHOS, CBCDIF ####[place] [phone] Creatinine mass conc 0.62 mg/dL Low 0.70-1.40 [facility] Comment on above: Performed By: #### B MP, MG1, PHOS, CBCDIF ####[place] [phone] eGFR- Amer. >60 Normal >60 [facility] Comment on above: Performed By: #### B MP, MG1, PHOS, CBCDIF ####[place] [phone] GFR/1.73 sq M predicted among non-blacks MDRD vol rate/area (S/P/Bld) mL/min/{1.73_m2} Normal >60 [facility] Comment on above: Performed By: #### B MP, MG1, PHOS, CBCDIF ####[place] [phone] Glucose mass conc 113 mg/dL High 65-100 [facility] Comment on above: Performed By: #### B MP, MG1, PHOS, CBCDIF ####[place] [phone] Potassium molar conc 4.3 mmol/L Normal 3.5-5.0 [facility] Comment on above: Result Comment: Revi ewed Performed By: #### B MP, MG1, PHOS, CBCDIF ####[place] [phone] Sodium molar conc 136 mmol/L Normal 135-146 [facility] Comment on above: Performed By: #### B MP, MG1, PHOS, CBCDIF ####[place] [phone] Urea nitrogen mass conc 5 mg/dL Low 10-25 [facility] Comment on above: Performed By: #### B MP, MG1, PHOS, CBCDIF ####[place] [phone] CBC and Differentialon 04-26 Abs Baso <0.03 Normal <0.11 [facility] Comment on above: Performed By: #### B MP, MG1, PHOS, CBCDIF ####[place] [phone] Abs [place] 0.66 k/uL Normal <0.87 [facility] Comment on above: Performed By: #### B MP, MG1, PHOS, CBCDIF ####[place] [phone] Abs Neut 4.86 k/uL Normal 1.45-7.50 [facility] Comment on above: Performed By: #### B MP, MG1, PHOS, CBCDIF ####[place] [phone] Basophils/100 WBC Auto (Bld) 0.1 % Normal [facility] Comment on above: Performed By: #### B MP, MG1, PHOS, CBCDIF ####[place] [phone] DTYPE Auto Diff Normal [facility] Comment on above: Performed By: #### B MP, MG1, PHOS, CBCDIF ####[place] [phone] Eosinophils Auto #/vol (Bld) 10*3/uL Normal <0.46 [facility] Comment on above: Performed By: #### B MP, MG1, PHOS, CBCDIF ####[place] [address] Eosinophils/100 WBC Auto (Bld) 0.0 % Normal [facility] Comment on above: Performed By: #### B MP, MG1, PHOS, CBCDIF ####[place] [address] Erythrocyte distribution width Auto Ratio (RBC) 14.9 % Normal 11.5-15.0 [facility] Comment on above: Performed By: #### B MP, MG1, PHOS, CBCDIF ####[place] [address] Hematocrit Auto Volume Fraction (Bld) 37.1 % Low 39.0-51.0 [facility] Comment on above: Performed By: #### B MP, MG1, PHOS, CBCDIF ####[place] [address] Hemoglobin mass conc (Bld) 12.0 g/dL Low 13.0-17.0 [facility] Comment on above: Performed By: #### B MP, MG1, PHOS, CBCDIF ####[place] [address] Lymphocytes Auto #/vol (Bld) 1.40 10*3/uL Normal 1.00-4.00 [facility] Comment on above: Performed By: #### B MP, MG1, PHOS, CBCDIF ####[place] [phone] Lymphocytes/100 WBC Auto (Bld) 20.2 % Normal [facility] Comment on above: Performed By: #### B MP, MG1, PHOS, CBCDIF ####[place] [phone] MCH Auto Entitic mass (RBC) 28.9 pG Normal 26.0-34.0 [facility] Comment on above: Performed By: #### B MP, MG1, PHOS, CBCDIF ####[place] [phone] MCHC Auto mass conc (RBC) 32.3 g/dL Normal 30.5-36.0 [facility] Comment on above: Performed By: #### B MP, MG1, PHOS, CBCDIF ####[place] [phone] MCV Auto Entitic volume (RBC) 89.4 fL Normal 80.0-100.0 [facility] Comment on above: Performed By: #### B MP, MG1, PHOS, CBCDIF ####[address] Monocytes/100 WBC Auto (Bld) 9.5 % Normal [facility] Comment on above: Performed By: #### B MP, MG1, PHOS, CBCDIF ####[address] Neutrophils/100 WBC Auto (Bld) 70.2 % Normal [facility] Comment on above: Performed By: #### B MP, MG1, PHOS, CBCDIF ####[place] [phone] Platelet mean volume Auto Entitic volume (Bld) 13.7 fL High 9.0-12.7 [facility] Comment on above: Performed By: #### B MP, MG1, PHOS, CBCDIF ####[place] [phone] Platelets Auto #/vol (Bld) 83 10*3/uL Low 150-400 [facility] Comment on above: Result Comment: Revi ewedSample checked for a clot. Performed By: #### B MP, MG1, PHOS, CBCDIF ####[place] [phone] RBC Auto #/vol (Bld) 4.15 10*6/uL Low 4.20-6.00 [facility] Comment on above: Performed By: #### B MP, MG1, PHOS, CBCDIF ####[facility] [place], [place] [phone] WBC Auto #/vol (Bld) 6.93 10*3/uL Normal 3.70-11.00 [facility] Comment on above: Performed By: #### B MP, MG1, PHOS, CBCDIF ####[address] [phone] Magnesiumon 04-26-2018 Magnesium mass conc 1.7 mg/dL Normal 1.7-2.6 [facility] Comment on above: Performed By: #### B MP, MG1, PHOS, CBCDIF ####[address] [phone] NURSING PROGon 04-26-2018 Protein mass conc HNO ID: [id number]: Pilar (Elias) Brisa Daveyice: (none)Author Type: Registered NurseType: Nursing Progress NoteFiled: 04/27/2018 1:14 AMNote Text: Nursing Progress NotePatient Name: Ruth SmithMRN: [id number] Location: [place] [id number]____ Daily Note:tolerating gi soft diet without n/v. ambulated pod with 1assist and walker. several times. abdomemn is distended and tender,sites look ures4013 up in room, pas on when not ambulatingThis note was completed by: Pilar Davey RN [facility] Protein mass conc HNO ID: [id number]: Liz Salgado) Brisa Chuice: (none)Author Type: Registered NurseType: Nursing Progress NoteFiled: 04/26/2018 2:44 AMNote Text: Nursing Progress NotePatient Name: Ruth SmithMRN: [id number] Location: [id number] Daily note: Pt ambulated the POD several times tonight, has had multipleBM's, still taking oxy for pain as well as using the SCLEROSCOPE TESTER pump but says heis trying to hit the pump less. Will continue to monitor and check withpatient.This note was completed by: Liz Chu RN [facility] PROGRESSon 04-26-2018 Protein mass conc HNO ID: [id number]: Stoney (Res) BaljindershirService: ColorectalAuthor Type: ResidentType: Progress NotesFiled: 04/26/2018 7:43 AMNote Text:Colorectal Surgery Progress NoteName: Ruth SmithMRN: [id number] al update:Overall, patient is doing well. Overnight, reports being uncomfortable,and sore. Reports feeling bloated-Pain controlled with SCLEROSCOPE TESTER-Denies fevers, chills, chest pain, shortness of breath-No [...] No erythema noted.- Chest: Non-labored, symmetrical respirations.Date 04/25/18699 - 04/26/1859 04/26/18699 - 04/27/18 0659Shift 7876-2204 3024-3304 6948-7607 24 Hour Total 5139-2612 9642-89732074-2017 24 Hour TotalINTAKE PO 982 059 6045 2405 PO 998 998 2721 2405 IV 890 2323 637 2290 NS 0.9% 640 4664 943 6098 Potassium Phosphate 250 250 Shift Total 1130 2025 1675 4830OUTPUT Urine 845 1625 3875 6317 Void (ml) 0 0 Tube Output ( Indwelling Urinary Catheter 04/25/18 1019 AssessmentCoude) 845 1625 3875 6382 # of BMs Number of BMs 1 x 1 x Shift Total 845 1625 3875 6387Weight (kg) 120 120 120 120 120 120 [...] 5-10 mg ORAL q 4 H PRNHYDROmorphone SCLEROSCOPE TESTER 0.5 mg/mL in NaCl 0.9% 100 mL [...] doing well.PLAN:-diet: continue clear liquids-PT/OT-keep palacios in-decrease SCLEROSCOPE TESTER settings- Encourage incentive spirometry and ambulation- SCD's and SQH for DVT prophylaxis- Dispo: continue care on RNF?SIGNATURE: Stoney Crawford MD PATIENT NAME: Ruth SmithDATE: April 26, 2018 : 7:42 AM PAGER/CONTACT #: [phone] Normal [facility] Phosphoruson 04-26-2018 Phosphate mass conc 2.1 mg/dL Low 2.5-4.5 [facility] Comment on above: Performed By: #### B MP, MG1, PHOS, CBCDIF ####[facility] [place], [place] [phone] Basic Metabolic Panlon 04-25 Anion gap 3 molar conc 10 mmol/L Normal 05-01 [facility] Comment on above: Performed By: #### C BCDIF, BMP, MG1, PHOS ####[place] [address] Calcium mass conc 7.8 mg/dL Low 8.5-10.5 [facility] Comment on above: Performed By: #### C BCDIF, BMP, MG1, PHOS ####[place] [address] Chloride molar conc 99 mmol/L Normal 98-110 [facility] Comment on above: Performed By: #### C BCDIF, BMP, MG1, PHOS ####[place] [address] CO2 molar conc 27 mmol/L Normal 23-32 [facility] Comment on above: Performed By: #### C BCDIF, BMP, MG1, PHOS ####[place] [address] Creatinine mass conc 0.70 mg/dL Normal 0.70-1.40 [facility] Comment on above: Performed By: #### C BCDIF, BMP, MG1, PHOS ####[place] [address] eGFR- Amer. >60 Normal >60 [facility] Comment on above: Performed By: #### C BCDIF, BMP, MG1, PHOS ####[address] GFR/1.73 sq M predicted among non-blacks MDRD vol rate/area (S/P/Bld) mL/min/{1.73_m2} Normal >60 [facility] Comment on above: Performed By: #### C BCDIF, BMP, MG1, PHOS ####[place] [phone] Glucose mass conc 98 mg/dL Normal 65-100 [facility] Comment on above: Performed By: #### C BCDIF, BMP, MG1, PHOS ####[place] [phone] Potassium molar conc 3.3 mmol/L Low 3.5-5.0 [facility] Comment on above: Performed By: #### C BCDIF, BMP, MG1, PHOS ####[place] [phone] Sodium molar conc 136 mmol/L Normal 135-146 [facility] Comment on above: Performed By: #### C BCDIF, BMP, MG1, PHOS ####[place] [phone] Urea nitrogen mass conc 12 mg/dL Normal 10-25 [facility] Comment on above: Performed By: #### C BCDIF, BMP, MG1, PHOS ####[place] [phone] CBC and Differentialon 04-25 Abs Baso <0.03 Normal <0.11 [facility] Comment on above: Performed By: #### C BCDIF, BMP, MG1, PHOS ####[place] [phone] Abs [place] 0.59 k/uL Normal <0.87 [facility] Comment on above: Performed By: #### C BCDIF, BMP, MG1, PHOS ####[place] [phone] Abs Neut 4.45 k/uL Normal 1.45-7.50 [facility] Comment on above: Performed By: #### C BCDIF, BMP, MG1, PHOS ####[place] [phone] Basophils/100 WBC Auto (Bld) 0.2 % Normal [facility] Comment on above: Performed By: #### C BCDIF, BMP, MG1, PHOS ####[place] [phone] DTYPE Auto Diff Normal [facility] Comment on above: Performed By: #### C BCDIF, BMP, MG1, PHOS ####[place] [address] Eosinophils Auto #/vol (Bld) 10*3/uL Normal <0.46 [facility] Comment on above: Performed By: #### C BCDIF, BMP, MG1, PHOS ####[place] [address] Eosinophils/100 WBC Auto (Bld) 0.0 % Normal [facility] Comment on above: Performed By: #### C BCDIF, BMP, MG1, PHOS ####[place] [address] Erythrocyte distribution width Auto Ratio (RBC) 15.2 % High 11.5-15.0 [facility] Comment on above: Performed By: #### C BCDIF, BMP, MG1, PHOS ####[place] [address] Hematocrit Auto Volume Fraction (Bld) 34.7 % Low 39.0-51.0 [facility] Comment on above: Performed By: #### C BCDIF, BMP, MG1, PHOS ####[place] [address] Hemoglobin mass conc (Bld) 11.2 g/dL Low 13.0-17.0 [facility] Comment on above: Performed By: #### C BCDIF, BMP, MG1, PHOS ####[place] [address] Lymphocytes Auto #/vol (Bld) 1.31 10*3/uL Normal 1.00-4.00 [facility] Comment on above: Performed By: #### C BCDIF, BMP, MG1, PHOS ####[place] [address] Lymphocytes/100 WBC Auto (Bld) 20.6 % Normal [facility] Comment on above: Performed By: #### C BCDIF, BMP, MG1, PHOS ####[place] [phone] MCH Auto Entitic mass (RBC) 28.6 pG Normal 26.0-34.0 [facility] Comment on above: Performed By: #### C BCDIF, BMP, MG1, PHOS ####[place] [phone] MCHC Auto mass conc (RBC) 32.3 g/dL Normal 30.5-36.0 [facility] Comment on above: Performed By: #### C BCDIF, BMP, MG1, PHOS ####[place] [phone] MCV Auto Entitic volume (RBC) 88.5 fL Normal 80.0-100.0 [facility] Comment on above: Performed By: #### C BCDIF, BMP, MG1, PHOS ####[place] [address] Monocytes/100 WBC Auto (Bld) 9.3 % Normal [facility] Comment on above: Performed By: #### C BCDIF, BMP, MG1, PHOS ####[place] [address] Neutrophils/100 WBC Auto (Bld) 69.9 % Normal [facility] Comment on above: Performed By: #### C BCDIF, BMP, MG1, PHOS ####[place] [address] Platelet mean volume Auto Entitic volume (Bld) 12.7 fL Normal 9.0-12.7 [facility] Comment on above: Performed By: #### C BCDIF, BMP, MG1, PHOS ####[place] [phone] Platelets Auto #/vol (Bld) 67 10*3/uL Low 150-400 [facility] Comment on above: Result Comment: Resu lt checked and verifiedSample checked for a clot. Performed By: #### C BCDIF, BMP, MG1, PHOS ####[facility] [place], [place] [phone] RBC Auto #/vol (Bld) 3.92 10*6/uL Low 4.20-6.00 [facility] Comment on above: Performed By: #### C BCDIF, BMP, MG1, PHOS ####[facility] [place], [place] [phone] WBC Auto #/vol (Bld) 6.36 10*3/uL Normal 3.70-11.00 [facility] Comment on above: Performed By: #### C BCDIF, BMP, MG1, PHOS ####[place] [id number] [place], [place] [phone] Magnesiumon 04-25-2018 Magnesium mass conc 1.8 mg/dL Normal 1.7-2.6 [facility] Comment on above: Performed By: #### C BCDIF, BMP, MG1, PHOS ####[address] [phone] NURSING PROGon 04-25-2018 Protein mass conc HNO ID: [id number]: Samaria Lea (Rn) Mary, DANIAervice: (none)Author Type: Registered NurseType: Nursing Progress NoteFiled: 04/25/2018 11:37 AMNote Text: Nursing Progress NotePatient Name: Ruth SmithMRN: [id number] Location: [address]/GD-FN4F-21____ Daily Note: Patient was unable to void and kept trying but Dr ordered toreplace palacios catheter and initially 500ml out; he has been walking theentire pod already a few times today tolerates well, had a liquid bm, +flatus, started a clear liquid diet, tolerating, still has some abdominaldistention, uses machine heel seat laster for pain control and prn oxy pain score 7 to 8,receiving KPhos bolus and po K+, stable, continue to monitor.This note was completed by: Samaria Hernandez RN [facility] Protein mass conc HNO ID: [id number]: Azul (Elias) DANIA Tobarervice: (none)Author Type: Registered NurseType: Nursing Progress NoteFiled: 04/25/2018 6:48 AMNote Text: Nursing Progress NotePatient Name: Ruth SmithMRN: [id number] Location: [place] [address]/OW-XY4P-79____ Daily Note: 1944 (late entry): Pt unable to void since palacios removal thisafternoon. Pt bladder scanned for 168 mL. Safety maintained and call [facility] reach. Will continue to monitor.0019 (late [...] note was completed by: Azul Tobar RN [facility] PROGRESSon 04-25-2018 Protein mass conc HNO ID: [id number]: Stoney (Alexis) Shruthiervice: ColorectalAuthor Type: ResidentType: Progress NotesFiled: 04/25/2018 1:35 PMNote Text:Colorectal Surgery Progress NoteName: Ruth SmithMRN: [id number] al update:Overall, patient is doing well. Overnight, pt unable to void since foleyremoval yesterday afternoon. Pt bladder scanned for 168 mL. Pt straightcathed for 650 mL of dark lita urine, tolerated well. Unable to voidagain several hours later, palacios replaced.-Pain controlled with SCLEROSCOPE TESTER, feels uncomfortable-Denies fevers, chills, chest pain, shortness [...] 04/25/18 0659 04/25/18 07 - 04/26/18 0659Shift 1568-7730 2621-9530 9074-9741 24 Hour Total 3690-9709 5623-25271960-8040 24 Hour TotalINTAKE PO 200 280 120 600 120 120 PO 200 280 120 600 120 120 IV 591 132 337 4149 NS 0.9% 609 872 8469 LR 591 591 Shift Total 791 3528 932 6097 120 120OUTPUT Urine 225 650 875 845 [...] 5-10 mg ORAL q 4 H PRNHYDROmorphone SCLEROSCOPE TESTER 0.5 mg/mL in NaCl 0.9% 100 mL [...] 140* 242*CA 7.8* 8.2* 8.1* 8.6LFT'sRecent Labs 04/06/212308PSCYC 7.9ALB 4.5ALT 29AST 58*ALKPHOS 60TBILI 1.2Assessment/Plan49 M, POD 2 s/p laparoscopic hand assisted sigmoid colectomy, with side toside stapled colorectal anastomosis. Clinically doing well.PLAN:-diet: clear liquids-PT/OT- Encourage incentive spirometry and ambulation- SCD's and SQH for DVT prophylaxis- Dispo: continue care on RNF?SIGNATURE: Stoney Crawford MD PATIENT NAME: Ruth SmithDATE: April 25, 2018 : 1:35 PM PAGER/CONTACT #: [phone] [facility] PT EDon 04-25-2018 PT ED HNO ID: [id number]: [place] (Diet-T) OlindaanService: Nutrition TherapyAuthor Type: Dietetic TechnicianType: Patient EducationFiled: 04/25/2018 1:58 PMNote Text:NUTRITION PATIENT EDUCATIONTOPIC: Survival Skills: DietPATIENT NAME: Ruth SmithMRN: [id number] DATE: April 25, 2018Diagnosis: ADULT: Colon CancerREADINESS [...] Routine Care/15 min 3 Mg GUAJARDO, diet-tPager: [id number] 20171:57 PM Normal [facility] Phosphoruson 04-25-2018 Phosphate mass conc 2.4 mg/dL Low 2.5-4.5 [facility] Comment on above: Performed By: #### C BCDIF, BMP, MG1, PHOS ####[place] [phone] Basic Metabolic Panlon 04-24 Anion gap 3 molar conc 14 mmol/L Normal 9-18 [facility] Comment on above: Performed By: #### B MP ####[place] [phone] Calcium mass conc 8.2 mg/dL Low 8.5-10.5 [facility] Comment on above: Performed By: #### B MP ####[place] [phone] Chloride molar conc 96 mmol/L Low 98-110 [facility] Comment on above: Performed By: #### B MP ####[place] [phone] CO2 molar conc 25 mmol/L Normal 23-32 [facility] Comment on above: Performed By: #### B MP ####[place] [phone] Creatinine mass conc 0.69 mg/dL Low 0.70-1.40 [facility] Comment on above: Performed By: #### B MP ####[place] [phone] eGFR- Amer. >60 Normal >60 [facility] Comment on above: Performed By: #### B MP ####[place] [phone] GFR/1.73 sq M predicted among non-blacks MDRD vol rate/area (S/P/Bld) mL/min/{1.73_m2} Normal >60 [facility] Comment on above: Performed By: #### B MP ####[place] [phone] Glucose mass conc 161 mg/dL High 65-100 [facility] Comment on above: Performed By: #### B MP ####[place] [phone] Potassium molar conc 3.8 mmol/L Normal 3.5-5.0 [facility] Comment on above: Result Comment: Revi ewed Performed By: #### B MP ####[place] [phone] Sodium molar conc 135 mmol/L Normal 135-146 [facility] Comment on above: Performed By: #### B MP ####[place] [phone] Urea nitrogen mass conc 15 mg/dL Normal 10-25 [facility] Comment on above: Performed By: #### B MP ####[place] [phone] Anion gap 3 molar conc 12 mmol/L Normal 9-18 [facility] Comment on above: Performed By: #### T SCR30 ####[place] [phone] Calcium mass conc 8.1 mg/dL Low 8.5-10.5 [facility] Comment on above: Performed By: #### T SCR30 ####[place] [phone] Chloride molar conc 96 mmol/L Low 98-110 [facility] Comment on above: Performed By: #### T SCR30 ####[place] [phone] CO2 molar conc 28 mmol/L Normal 23-32 [facility] Comment on above: Performed By: #### T SCR30 ####[place] [phone] Creatinine mass conc 0.77 mg/dL Normal 0.70-1.40 [facility] Comment on above: Performed By: #### T SCR30 ####[place] [phone] eGFR- Amer. >60 Normal >60 [facility] Comment on above: Performed By: #### T SCR30 ####[place] [phone] GFR/1.73 sq M predicted among non-blacks MDRD vol rate/area (S/P/Bld) mL/min/{1.73_m2} Normal >60 [facility] Comment on above: Performed By: #### T SCR30 ####[place] [phone] Glucose mass conc 140 mg/dL High 65-100 [facility] Comment on above: Performed By: #### T SCR30 ####[place] [phone] Potassium molar conc 3.1 mmol/L Low 3.5-5.0 [facility] Comment on above: Performed By: #### T SCR30 ####[place] [phone] Sodium molar conc 136 mmol/L Normal 135-146 [facility] Comment on above: Performed By: #### T SCR30 ####[place] [phone] Urea nitrogen mass conc 14 mg/dL Normal 10-25 [facility] Comment on above: Performed By: #### T SCR30 ####[place] [phone] CASE MGT INIT ASSESon 2017 CASE MGT INIT ASSDECLAN HNO ID: [id number]: Myah (Rn) DANIA Espitiaervice: Care ManagementAuthor Type: Registered NurseType: Mikal Mgt Initial AssessmentFiled: 04/24/2018 3:07 PMNote Text:CARE MANAGEMENT: ASSESSMENT AND DISCHARGE PLANSERVICE DATE: 04/24/2018SERVICE TIME: 3:01 PMPRIMARY CARE PHYSICIAN:León Tubbs: [phone] STATUS: InpatientMEDICAL:Patient /Program Manager Slp Stated Goals:To have reduction in symptomsTo return home to life as it wasHealth Insurance: MEDICARE A AND ealth Issues Impacting Discharge Plan: Newly diagnosed Cancer and ChronicDiabetesLast Admission Date: noneIs this Within the Past 30 days? NoAdvance Directive:Current Advance Directive: Health Care Power of AttorneyIn Chart: NoCare Receptionist Telephone Operator Attempted to Assist with AD Completion: YesAction: [...] - StraightHas the Patient Been in a Usp Facility in the Past 30 days? NoSOCIAL:Living Arrangement: HomeLives With: grandma and grandpaFinancial Resources: DisabledPrimary Contact: Extended Emergency Contact InformationPrimary Emergency Contact: Matt Mahan Wlwayc Mixmniaf: GrandparentSupportive: YesOther Important Patient Contacts: NoneCaregiver Assessment:Caregiver [...] - 0I feel financially burdened by my dxx-xh-hymdnk expenses for myprescription medication: Disagree mostly -0Patient [...] Needs: NoneFREEDOM OF CHOICE EXPLAINED:N/APOTENTIAL TRANSITION PLANSHomeThis employment case manager met with the patient at bedside. Patient [...] 2018 : 3:01 PM PAGER/CONTACT #: Normal [facility] CBC and Differentialon 04-24 Abs Baso <0.03 Normal <0.11 [facility] Comment on above: Performed By: #### B MP, PHOS, CBCDIF, MG1 ####[facility] [place] [phone] Abs [place] 0.65 k/uL Normal <0.87 [facility] Comment on above: Performed By: #### B MP, PHOS, CBCDIF, MG1 ####[place] [id number] [place] [phone] Abs Neut 3.98 k/uL Normal 1.45-7.50 [facility] Comment on above: Performed By: #### B MP, PHOS, CBCDIF, MG1 ####[place] [phone] Basophils/100 WBC Auto (Bld) 0.2 % Normal [facility] Comment on above: Performed By: #### B MP, PHOS, CBCDIF, MG1 ####[place] [address] DTYPE Auto Diff Normal [facility] Comment on above: Performed By: #### B MP, PHOS, CBCDIF, MG1 ####[place] [address] Eosinophils Auto #/vol (Bld) 10*3/uL Normal <0.46 [facility] Comment on above: Performed By: #### B MP, PHOS, CBCDIF, MG1 ####[place] [address] Eosinophils/100 WBC Auto (Bld) 0.3 % Normal [facility] Comment on above: Performed By: #### B MP, PHOS, CBCDIF, MG1 ####[place] [address] Erythrocyte distribution width Auto Ratio (RBC) 15.2 % High 11.5-15.0 [facility] Comment on above: Performed By: #### B MP, PHOS, CBCDIF, MG1 ####[place] [address] Hematocrit Auto Volume Fraction (Bld) 36.4 % Low 39.0-51.0 [facility] Comment on above: Performed By: #### B MP, PHOS, CBCDIF, MG1 ####[place] [address] Hemoglobin mass conc (Bld) 11.9 g/dL Low 13.0-17.0 [facility] Comment on above: Performed By: #### B MP, PHOS, CBCDIF, MG1 ####[place] [address] Lymphocytes Auto #/vol (Bld) 1.16 10*3/uL Normal 1.00-4.00 [facility] Comment on above: Performed By: #### B MP, PHOS, CBCDIF, MG1 ####[place] [phone] Lymphocytes/100 WBC Auto (Bld) 19.9 % Normal [facility] Comment on above: Performed By: #### B MP, PHOS, CBCDIF, MG1 ####[place] [phone] MCH Auto Entitic mass (RBC) 28.3 pG Normal 26.0-34.0 [facility] Comment on above: Performed By: #### B MP, PHOS, CBCDIF, MG1 ####[place] [phone] MCHC Auto mass conc (RBC) 32.7 g/dL Normal 30.5-36.0 [facility] Comment on above: Performed By: #### B MP, PHOS, CBCDIF, MG1 ####[place] [phone] MCV Auto Entitic volume (RBC) 86.7 fL Normal 80.0-100.0 [facility] Comment on above: Performed By: #### B MP, PHOS, CBCDIF, MG1 ####[place] [phone] Monocytes/100 WBC Auto (Bld) 11.2 % Normal [facility] Comment on above: Performed By: #### B MP, PHOS, CBCDIF, MG1 ####[place] [phone] Neutrophils/100 WBC Auto (Bld) 68.4 % Normal [facility] Comment on above: Performed By: #### B MP, PHOS, CBCDIF, MG1 ####[place] [phone] Platelet mean volume Auto Entitic volume (Bld) 13.3 fL High 9.0-12.7 [facility] Comment on above: Performed By: #### B MP, PHOS, CBCDIF, MG1 ####[address] [phone] Platelets Auto #/vol (Bld) 68 10*3/uL Low 150-400 [facility] Comment on above: Result Comment: Siddhartha kilgoreedSample checked for a clot. Performed By: #### B MP, PHOS, CBCDIF, MG1 ####[place] [phone] RBC Auto #/vol (Bld) 4.20 10*6/uL Normal 4.20-6.00 [facility] Comment on above: Performed By: #### B MP, PHOS, CBCDIF, MG1 ####[place] [phone] WBC Auto #/vol (Bld) 5.82 10*3/uL Normal 3.70-11.00 [facility] Comment on above: Performed By: #### B MP, PHOS, CBCDIF, MG1 ####[address] [phone] Magnesiumon 04-24-2018 Magnesium mass conc 1.9 mg/dL Normal 1.7-2.6 [facility] Comment on above: Performed By: #### B MP, PHOS, CBCDIF, MG1 ####[place] [phone] NURSING PROGon 04-24-2018 Protein mass conc HNO ID: [id number]: Bentley (Rn) DANIA Thompsonervice: (none)Author Type: Registered NurseType: Nursing Progress NoteFiled: 04/24/2018 5:47 PMNote Text: Nursing Progress NotePatient Name: Ruth SmithMRN: [id number] Location: [facility]3A03/QC-JX4S-63____ Daily Note:04/24/18 0744- Sent page to Dr. Webb to clarify K+ order.0845- Spoke with Dr. Webb, she clarified the patient should [id number] of IV K+.30- Patient was assisted to the chair with two person assist and awalker. Patient tolerated the movement well. Patient is alert andoriented times three, calm and cooperative. Vitals are stable, oxygensaturation is adequate on room air. Changed fluids to normal saline perorders; SCLEROSCOPE TESTER settings verified against orders. Pain controlled with SCLEROSCOPE TESTER,scheduled tylenol and toradol. Hand grasps and push/pulls [...] note was completed by: Bentley Thompson RN [facility] PROGRESSon 04-24-2018 Protein mass conc HNO ID: [id number]: Stoney (Res) MubashirService: ColorectalAuthor Type: ResidentType: Progress NotesFiled: 04/24/2018 8:46 AMNote Text:Colorectal Surgery Progress NoteName: Ruth SmithMRN: [id number] al update:Overall, patient is doing well. No significant overnight issues noted.-Pain present, controlled with SCLEROSCOPE TESTER-Denies fevers, chills, chest pain, shortness of breath-No [...] No erythema noted.- Chest: Non-labored, symmetrical respirations.Date 04/23/18 07 - 04/24/18 0659 04/24/18 07 - 04/25/18 0659Shift 6567-2154 1720-0834 1426-5609 24 Hour Total 6817-0669 2629-60661240-9034 24 Hour TotalINTAKE PO 40 60 100 PO 40 60 100 IV 1800 50 1031 2881 Magnesium IVPB 50 50 LR 1031 1031 OR Crystalloid intake (mL) 1800 1800 Other 400 400 PACU ([facility] Only) 400 400 Shift Total 2691 111 7975 3381OUTPUT Urine 350 599 545 2737 75 75 OR Urine Output 350 350 Tube Output ( Indwelling Urinary Catheter 04/23/18 1118 Palacios 16Fr) 700 100 800 75 75 # of BMs Number of BMs 0 x 0 x Blood 50 50 Estimated Blood loss 50 50 Shift Total 400 116 732 8258 75 75Weight (kg) 120 120 120 120 [...] 5-10 mg ORAL q 4 H PRNHYDROmorphone SCLEROSCOPE TESTER 0.5 mg/mL in NaCl 0.9% 100 mL [...] 36.4* 38.1* 51.6*PLT 68* 77* 123*BMPRecent Labs 04/23/1818/684875AG 136 135 141K 3.1* 3.5 4.5CHLOR 96* [...] Encourage incentive spirometry and ambulation- SCD's and [facility] for DVT prophylaxis- Dispo: continue care on RNF?SIGNATURE: Stoney Crawford MD PATIENT NAME: Ruth SmithDATE: April 24, 2018 : 8:42 AM PAGER/CONTACT #: [phone] Normal [facility] Phosphoruson 04-24-2018 Phosphate mass conc 3.3 mg/dL Normal 2.5-4.5 [facility] Comment on above: Performed By: #### T SCR30 ####[facility] [place], [place] [phone] THERAPY NTon 04-24-2018 THERAPY NT HNO ID: [id number]: Ruby (Ot) GarnekService: Occupational TherapyAuthor Type: Occupational TherapistType: Therapy (PT/OT/Speech/Resp)Filed : 04/24/2018 2:20 PMNote Text:Occupational Therapy EvaluationSERVICE DATE: 04/24/2018SERVICE TIME: 1300 to 1325ROOM: [id number] CA, S/P Laparoscopic Left Duncan-Colectomy 04/23/18Recommended Discharge Disposition: HomeAnticipated Discharge Needs: Physical Assist at HomePhysical Assist at Home for: Laundry;Cleaning;Shoppin g;TransportationRecommen ded Discharge Equipment: Elastic Shoe Laces;Grab Bars-Shower;HandHeld Shower;Long Handled Shoe Horn;Long Handled Sponge;WheeledWalker;[place] fly;Sock Aide;Shower ChairOT Recommendations to Nursing: Transfer [...] For Complete PastMedical History Please [facility] to [facility]. Pt presents with decreased abilityto complete ADL's, [...] Pt has grandparents for support. Pt resides [place], [place], and plans to return home.Patient Disposition [...] (ADL);Muscle Weakness (generalized)Interventio ns Provided: Evaluation;Therapeutic Activity (81084)$ Evaluation-Low (20486) Billed Units: 1 unitTherapeutic Activity (90449) Treatment Minutes: 101 unitSkilled Intervention(s): Instruction in [...] forcomplete details for this therapy evaluation/treatment.SIG NATURE: WILLARD Yañez/Lanie PATIENT NAME: Ruth SmithDATE: April 24, 2018 : 2:15 PM [facility] THERAPY NT HNO ID: [id number]: Yady (Pt) KilbaneService: Physical TherapyAuthor Type: Physical TherapistType: Therapy (PT/OT/Speech/Resp)Filed : 04/24/2018 2:15 PMNote Text:Physical Therapy EvaluationSERVICE DATE: 04/24/2018SERVICE TIME: 1320 to 1345ROOM: [id number] Discharge Disposition: HomeAnticipated Discharge Needs: Physical Assist [...] neral symptoms and signs-otherInterventions Provided: Evaluation;Gait Training (80103)$ Evaluation-Low (04602) Billed Units: 1 unitGait Training (76154) Treatment Minutes: 101 unitSkilled Intervention(s): Instruction in [...] Walking and Moving Around Goal Status (G8979): ()Based on clinical assessment and the score [...] SmithDATE: April 24, 2018 : 2:13 PM [facility] ANES Callum 04-23-2018 ANES POST HNO ID: [id number]: Jason Zuñigaice: AnesthesiologyAuthor Type: AnesthesiologistType: Anesthesia PostOpFiled: 04/23/2018 4:47 [...] 23, 2018 : 4:47 PM PAGER/CONTACT #: [facility] ANES PREOPon 04-23-2018 ANES PREOP HNO ID: [id number]: Jason Zuñigaice: AnesthesiologyAuthor Type: AnesthesiologistType: Anesthesia PreOpFiled: 04/23/2018 11:36 AMNote Text:REGIONAL ANESTHESIOLOGY DAY OF SURGERY NOTEPATIENT NAME: Ruth SmithMRN: [id number]: 1970Procedure(s) (LRB):LAPAROSCOPIC HAND ASSISTED COLECTOMY SIGMOID (Left)Surgeon(s):Des [...] mouth four times daily.Inpatient medications reviewed in [facility].I have interviewed and examined the patient. I have reviewed the medicalrecord and/or the pre-anesthesia evaluation, pertinent labs, and testresults.Significant changes in the patient's condition since the History andPhysical, not otherwise documented in primary service progress notes: NoThis contains updated information obtained within 48 hours ofSurgery/Procedure.SIGN ATURE: Jason Kimble MD PATIENT NAME: Ruth FernandezTE: April 23, 2018 : 11:35 AM PAGER/CONTACT #: [facility] BRIEF OP NOTon 04-23-2018 BRIEF OP NOT HNO ID: [id number]: Jason GarciaService: ColorectalAuthor Type: ResidentType: Brief Op NoteFiled: 04/23/2018 2:23 PMNote Text:BRIEF OPERATIVE NOTE - COLORECTAL SURGERYLog ID: [id number]/Procedure Date: 04/23/2018Incision/Proced ure Start Time: 11:21 AMIncision Close/Procedure End Time: 2:15 PMSurgeon(s) and Supervisor Mold Construction(s):Surgeon(s) and Role: * Des Flores - Primary [...] NoneSIGNATURE: Jason Garcia MD PATIENT NAME: Ruth FernandezTE: April 23, 2018 : 2:22 PM PAGER/CONTACT #: [phone] [facility] Basic Metabolic Panlon 04-23 Anion gap 3 molar conc 19 mmol/L High 05-01 [facility] Comment on above: Performed By: #### T SCR30 ####[facility] [place], [place] [phone] Calcium mass conc 8.6 mg/dL Normal 8.5-10.5 [facility] Comment on above: Performed By: #### T SCR30 ####[place] [phone] Chloride molar conc 93 mmol/L Low 98-110 [facility] Comment on above: Performed By: #### T SCR30 ####[place] [phone] CO2 molar conc 23 mmol/L Normal 23-32 [facility] Comment on above: Performed By: #### T SCR30 ####[place] [phone] Creatinine mass conc 0.75 mg/dL Normal 0.70-1.40 [facility] Comment on above: Performed By: #### T SCR30 ####[place] [phone] eGFR- Amer. >60 Normal >60 [facility] Comment on above: Performed By: #### T SCR30 ####[place] [phone] GFR/1.73 sq M predicted among non-blacks MDRD vol rate/area (S/P/Bld) mL/min/{1.73_m2} Normal >60 [facility] Comment on above: Performed By: #### T SCR30 ####[place] [phone] Glucose mass conc 242 mg/dL High 65-100 [facility] Comment on above: Performed By: #### T SCR30 ####[place] [phone] Potassium molar conc 3.5 mmol/L Normal 3.5-5.0 [facility] Comment on above: Performed By: #### T SCR30 ####[place] [phone] Sodium molar conc 135 mmol/L Normal 135-146 [facility] Comment on above: Performed By: #### T SCR30 ####[place] [phone] Urea nitrogen mass conc 12 mg/dL Normal 10-25 [facility] Comment on above: Performed By: #### T SCR30 ####[place] [phone] CBC and Differentialon 04-23 Abs Baso <0.03 Normal <0.11 [facility] Comment on above: Performed By: #### T SCR30 ####[address] Abs [place] 0.69 k/uL Normal <0.87 [facility] Comment on above: Performed By: #### T SCR30 ####[address] Abs Neut 8.24 k/uL High 1.45-7.50 [facility] Comment on above: Performed By: #### T SCR30 ####[place] [phone] Basophils/100 WBC Auto (Bld) 0.1 % Normal [facility] Comment on above: Performed By: #### T SCR30 ####[place] [phone] DTYPE Auto Diff Normal [facility] Comment on above: Performed By: #### T SCR30 ####[place] [phone] Eosinophils Auto #/vol (Bld) 10*3/uL Normal <0.46 [facility] Comment on above: Performed By: #### T SCR30 ####[place] [phone] Eosinophils/100 WBC Auto (Bld) 0.0 % Normal [facility] Comment on above: Performed By: #### T SCR30 ####[place] [phone] Erythrocyte distribution width Auto Ratio (RBC) 15.0 % Normal 11.5-15.0 [facility] Comment on above: Performed By: #### T SCR30 ####[place] [phone] Hematocrit Auto Volume Fraction (Bld) 38.1 % Low 39.0-51.0 [facility] Comment on above: Performed By: #### T SCR30 ####[place] [phone] Hemoglobin mass conc (Bld) 12.7 g/dL Low 13.0-17.0 [facility] Comment on above: Performed By: #### T SCR30 ####[place] [phone] Lymphocytes Auto #/vol (Bld) 0.61 10*3/uL Low 1.00-4.00 [facility] Comment on above: Performed By: #### T SCR30 ####[place] [phone] Lymphocytes/100 WBC Auto (Bld) 6.4 % Normal [facility] Comment on above: Performed By: #### T SCR30 ####[phone] MCH Auto Entitic mass (RBC) 28.8 pG Normal 26.0-34.0 [facility] Comment on above: Performed By: #### T SCR30 ####[place] [phone] MCHC Auto mass conc (RBC) 33.3 g/dL Normal 30.5-36.0 [facility] Comment on above: Performed By: #### T SCR30 ####[place] [phone] MCV Auto Entitic volume (RBC) 86.4 fL Normal 80.0-100.0 [facility] Comment on above: Performed By: #### T SCR30 ####[place] [phone] Monocytes/100 WBC Auto (Bld) 7.2 % Normal [facility] Comment on above: Performed By: #### T SCR30 ####[place] [phone] Neutrophils/100 WBC Auto (Bld) 86.3 % Normal [facility] Comment on above: Performed By: #### T SCR30 ####[address] [phone] Platelet mean volume Auto Entitic volume (Bld) <> Normal 9.0-12.7 [facility] Comment on above: Performed By: #### T SCR30 ####[place] [phone] Platelets Auto #/vol (Bld) 77 10*3/uL Low 150-400 [facility] Comment on above: Result Comment: Revi ewedSample checked for a clot. Performed By: #### T SCR30 ####[address] [phone] RBC Auto #/vol (Bld) 4.41 10*6/uL Normal 4.20-6.00 [facility] Comment on above: Performed By: #### T SCR30 ####[place] [phone] WBC Auto #/vol (Bld) 9.55 10*3/uL Normal 3.70-11.00 [facility] Comment on above: Performed By: #### T SCR30 ####[address] [phone] HISTORY PHYSICALon 8 HISTORY PHYSICAL HNO ID: [id number]: Jason Galvez (Res) AbbassService: ColorectalAuthor Type: ResidentType: HANDPFiled: 04/23/2018 10:10 AMNote [...] changes.This HANDP can be found in the [facility] L5 discectomy.SIGNATURE: Jason Garcia MD PATIENT NAME: Ruth SmithDATE: April 23, 2018 : 10:09 AM PAGER: [facility] Magnesiumon 04-23-2018 Magnesium mass conc 1.4 mg/dL Low 1.7-2.6 [facility] Comment on above: Performed By: #### T SCR30 ####[facility] [place], [place] [phone] NURSING PROGon 04-23-2018 Protein mass conc HNO ID: [id number]: Azul HallRn) Eusebio Tobar: (none)Author Type: Registered NurseType: Nursing Progress NoteFiled: 04/23/2018 9:43 PMNote Text: Nursing Progress NotePatient Name: Ruth SmithMRN: [id number] Location: [address] Daily Note: Text page sent to [facility] regarding pt Mg level of 1.4 thisevening. Will await further orders. Safety maintained and call [facility]. Will continue to monitor.This note was completed by: Azul Tobar RN [facility] Protein mass conc HNO ID: [id number]: Bentley Salgado) Brisa Thompsonice: (none)Author Type: Registered NurseType: Nursing Progress NoteFiled: 04/23/2018 7:17 PMNote Text: Nursing Progress NotePatient Name: Ruth SmithMRN: [id number] [facility] [address] Daily Note:04/23/181814- [facility], his grandparents are at bedside. Patient is alert andoriented times three, complaining of 10/10 pain and grunting. SCLEROSCOPE TESTER hasbeen ordered but not started. Called for a SCLEROSCOPE TESTER pump. Started fluids perorders. Hand grasps and [...] note was completed by: Bentley Thompson RN [facility] Protein mass conc HNO ID: [id number]: Brennen (Rn) DANIA Beyervice: NursingAuthor Type: Registered NurseType: Nursing Progress NoteFiled: 04/23/2018 12:13 PMNote Text: Nursing Progress NotePatient Name: Ruth SmithMRN: [id number] Location: [facility] OR POOL/[facility] OR POOL Daily Note:Patient's family updated at 11:42 am about status of procedureper Dr. Higgins note was completed by: Brennen Bey RN [facility] OPERATIVE NOon 04-23-2018 OPERATIVE NO HNO ID: [id number]: Des Canalesrvice: ColorectalAuthor Type: PhysicianType: Operative ReportFiled: 04/24/2018 9:26 PMNote Text:[facility] - Operative ReportRUTH SMITHDOB: 1970 AGE: 47 SEX: MMRN: [id number] CSN: [id number] SVC: GENS LOCATION: [id number] PHYSICIAN: Des Flores M.D.DATE OF PROCEDURE: 04/23/2018PREOPERATIVE DIAGNOSIS: T1 colon cancer.POSTOPERATIVE DIAGNOSIS: Same.NAME OF OPERATION: Laparoscopic left hemicolectomy.SURGEON: Des Flores M.D.PRINTING WORKER SUPERVISOR: Vonda Fleming.ANESTHESIA:EBL: 10.IV FLUIDS: Per Anesthesia.INDICATIONS: The [...] colonic ends in close proximityand did a ggxw-ku-glro anastomosis with the aid of a blue stapler andclosed the common enterotomy with a TA 90 stapler. 0 Vicryl was used atthe crotch of the anastomosis to oversew the TA line.He was then transferred to Recovery in good condition.Des Flores M.D.SurgeryBC:[id number]: 04/23/2018 18:49:02T: 04/24/2018 04:56:25Job #: [id number] [facility] PROGRESSon 04-23-2018 Protein mass conc HNO ID: [id number]: Stoney (Res) MubashirService: ColorectalAuthor Type: ResidentType: Progress NotesFiled: 04/23/2018 8:12 PMNote Text: Surgery Post-Op CheckName: Ruth SmithMRN: [id number] 0 s/p laparoscopic hand assisted sigmoid colectomy, with side to sidestapled colorectal anastomosisSUBJECTIVE:-P atient doing well-Pain present, advised on SCLEROSCOPE TESTER use-Denies fevers, chills, chest pain, shortness of [...] managed on current regimen.-Continue routine post-op care EDGAR StormGY-1 General SurgeryPager [phone], Ylcprbopk 2017, 7:36 PM 6pm to 6 am, and on weekends, please page general surgery on-call [phone] [facility] PT EDon 04-23-2018 PT ED HNO ID: [id number]: Padmini (Rn) DANIA Freitaservice: NursingAuthor Type: Registered NurseType: Patient EducationFiled: 04/23/2018 8:42 AMNote Text:PATIENT EDUCATION TOPIC: PROCEDURE / SURGERY: Pre-op Teaching:ProtocolsPATIEN T NAME: Ruth SmithMRN: [id number] LOCATION: [facility] OR POOL/[facility] OR POOLREADINESS TO LEARNCOGNITIVE ABILITY: [...] NoneREFERRAL (RECOMMENDATION): NoneElectronically Signed By: Padmini Freitas, [id number]} Normal [facility] Phosphoruson 04-23-2018 Phosphate mass conc 2.5 mg/dL Normal 2.5-4.5 [facility] Comment on above: Performed By: #### T SCR30 ####[facility] [place], [place] [phone] SURGICAL PATHOLOGYon 018 SURGICAL PATHOLOGY [facility]: [id number] Physician: DES FLORES MD ____FINAL DIAGNOSIS1. Omentum, omentectomy (A) - Benign fibroadipose tissue.2. Left colon, resection (B) - Tattoo ink and focal foreign body giant cellreaction consistent with previous biopsy site, negative for residualinvasive adenocarcinoma (see synoptic report).- One tubular adenoma (see comment).- Thirteen lymph nodes, negative for malignancy (0/13).JEL/lelo 04/26/20180975TTLLDYA8. The margins are negative for dysplasia.SYNOPTIC REPORT [...] palpated. No masses or nodules are grosslyidentified. Program Manager Slp sections are submitted in two cassettes.B. Received [...] measuring up to 0.6 cm in greatestdimension. Program Manager Slp sections are submitted as follows: N0adeneuwmrfwmk blue margin first segment of bowel, B2 [...] submitted in relation to perpendicular red margin, Z46eysveycdziaks green margin second segment of bowel, B21 4 cm from bothmargins second segment of bowel, B22 rare adhesions serosal aspect secondsegment of bowel.BF/shabana 04/24/2018 Gross examination performed at [place] [address] of Report: 04/26/2018Date of Procedure: 04/23/2018Date of Receipt: 04/24/2018Submitted by: DES FLORES MDLocation: [id number] interpretation performed at [facility], [address] [place] [address]. Normal [facility] Comment on above: Performed By: #### P [place]THS ####[place] [address] Troponin Ton 04-23-2018 Troponin T.cardiac mass conc ug/L Normal 0.000-0.02 9 [facility] Comment on above: Performed By: #### T SCR30 ####[address] [phone] NURSING PROGon 04-12-2018 Protein mass conc HNO ID: [id number]: Adry (Rn) DANIA Orrervice: NeurosurgeryAuthor Type: Registered NurseType: Nursing Progress NoteFiled: 04/12/2018 2:07 PMNote Text:PACC Nurse Progress NoteHistory AND Physical:PACC Visit Date: 9-66-10Fjppoyme HANDP Date: N/AED visit Date: N/AOutside HANDP Scanned Date: N/ALabs Within Last 6 Months:BMP/CMP: Date 04-05 scannedImaging Within Last 12 Months:N/ACardiac Testing:EKG in last 12 Months: Yes: Date: 04-06-18, Comment: epicBMI Percentile (PEDS):N/Marianna Assessment:N/AAnesthesia Review:N/ANarrative:N/AP re-op Considerations:diabeticC knight Check:JOHN PAUL Melvinugu 2017 2:06 PM Normal [facility] Confirm Blood Typeon 018 ABO/RH(D) Positive [facility] Comment on above: Performed By: #### C ONABO ####[facility] [place], [place] [phone] Performed By: #### T SCR30 ####[facility] [place], [place] [phone] Type and SCR (30D)on 018 Antibody Screen Negative [facility] Comment on above: Performed By: #### T SCR30 ####[address] [phone] HOSPon 03-21-2018 HOSP Patient:Carlo Smith: Height:6' 0 [...] 3.7HEMA* 51.6 % 04/06/2018 51.0 39.0Progress Notes ([facility]):Hannah Zaragoza Psr 04/19/2018 9:08 AM SignedPatient called with pre-operative questions [phone] Garcia, RN, RN 04/19/2018 2:23 PM SignedCall returned. Reviewed prep questions and recovery question with patient.Patient verbalized understanding and will call office with any additionalquestions or concerns.Progress Notes ([facility]):Jun Arriola DO 03/31/2018 5:29 PM SignedPATIENT NAME: Ruth SmithMRN: [id number] PHYSICIAN: Jeff Mandel Jr, DO[address] [id number] CARE PHYSICIAN: No primary care provider on [...] PNL-ABS GRAN CT + CBC (FOR REMOTE [facility] USE)-HEPATIC FUNCTION PNL-CEA BLD Return in about 2 months (around 05/26/2018), or f/u 2 months. has colectomyscheduled in apr.. -------HISTORY OF PRESENT ILLNESS:47-year-old male referred for colon cancer.Past medical history includes type 2 diabetes, obesity, renal stones, chroniclumbar back pain, chronic arthritis, hypertension, bipolar, depression.Outpatient medications include Humalog insulins, Jentadueto, Lantus insulins,Imodium, meloxicam, metoprolol, potassium, multivitamin, trazodone, dicyclomine,citalopram, fenofibrate.He is a nonsmoker and does not drink alcohol regularly. He was a heavy drinkerunt1999. Initially presented to his primary care provider [...] I answered all questionssatisfactorily. .Ander Arriola D.O.Medical OncologistUniversity Hospitals Portage [facility] SURGICAL PATHOLOGYon 018 SURGICAL PATHOLOGY Specimen #: [id number] Physician: MOIRA ELIZONDO M.D. FINAL DIAGNOSIS[place], [place]; [phone] (02/22/2018)1. Cecum, polyp, polypectomy (A) - Tubular [...] hesitate tocontact the GI Consultation Service at [phone] with questions or ifadditional follow up information becomes available. This case was reviewedin conjunction with the GI pathology fellow, Yvonne Santiago M.D. MSc.JRG/CF/lh/03-14-2018Jo anyi Sterling M.D.(Electronic Signature) SPECIMEN SUBMITTEDA: 6 SLIDES [id number] (A, B) CLINICAL DATAAbdominal pain.Patient ID #: Date of Report: 03/14/2018Date of Procedure: 03/13/2018Date of Receipt: 03/13/2018Submitted by: MOIRA ELIZONDO M.D.Location: Diagnostic interpretation performed at [facility], [address] [place] [address]. Normal [facility] Reference [facility] Comment on above: Performed By: #### S ####See report for performing lab information. Vital Signs Date Time Vital Sign Value Performing Clinician Silvanoi jacob 02-21-2025 14:35-0400 Diastolic blood pressure 91 mm[Hg] Alistair Mcnally MD Work Phone: [facility] 02-21-2025 14:35-0400 Heart rate 98 /min Alistair Mcnally MD Work Phone: [facility] 02-21-2025 14:35-0400 Respiratory rate 16 /min Alistair Mcnally MD Work Phone: [facility] 02-21-2025 14:35-0400 Systolic blood pressure 146 mm[Hg] Alistair Mcnally MD Work Phone: [facility] 02-20-2025 14:40-0400 Body height 185.4 cm Zac Crouch MD Work Phone: [facility] 02-20-2025 14:40-0400 Body mass index (BMI) [Ratio] 31.48 kg/m2 Zac Crouch MD Work Phone: [facility] 02-20-2025 14:40-0400 Body temperature 97.59 [degF] Zac Crouch MD Work Phone: [facility] 02-20-2025 14:40-0400 Body weight 108.2 kg Zac Crouch MD Work Phone: [facility] 02-20-2025 14:40-0400 Diastolic blood pressure 82 mm[Hg] Zac Crouch MD Work Phone: [facility] 02-20-2025 14:40-0400 Heart rate 91 /min Zac Crouch MD Work Phone: [facility] 02-20-2025 14:40-0400 Respiratory rate 16 /min Zac Crouch MD Work Phone: [facility] 02-20-2025 14:40-0400 SaO2% (BldA) [Mass fraction] 100 % Zac Crouch MD Work Phone: [facility] 02-20-2025 14:40-0400 Systolic blood pressure 120 mm[Hg] Zac Crouch MD Work Phone: [facility] 01-15-2025 13:30-0400 Body height 185.4 cm Pm 2 [facility] 01-15-2025 13:30-0400 Body mass index (BMI) [Ratio] 30.34 kg/m2 Pm 2 [facility] 01-15-2025 13:30-0400 Body weight 104.33 kg Pmh 2 [facility] 12-05-2024 13:33-0400 Body height 185.42 cm [facility] 12-05-2024 13:33-0400 Body mass index (BMI) [Ratio] 32.3 kg/m2 [facility] 12-05-2024 13:33-0400 Body weight 111 kg [facility] 12-05-2024 13:33-0400 Diastolic blood pressure 113 mm[Hg] [facility] 12-05-2024 13:33-0400 Heart rate 95 /min [facility] 12-05-2024 13:33-0400 Systolic blood pressure 183 mm[Hg] [facility] 12-04-2024 15:30-0400 Body height 185.4 cm Vivek GASPAR Work Phone: [facility] 12-04-2024 15:30-0400 Body mass index (BMI) [Ratio] 29.42 kg/m2 Vivek GASPAR Work Phone: [facility] 12-04-2024 15:30-0400 Body weight 101.15 kg Vivek GASPAR Work Phone: [facility] 12-04-2024 15:30-0400 Diastolic blood pressure 81 mm[Hg] Vivek GASPAR Work Phone: [facility] 12-04-2024 15:30-0400 Heart rate 108 /min Vivek GASPAR Work Phone: [facility] 12-04-2024 15:30-0400 Systolic blood pressure 131 mm[Hg] Vivek GASPAR [facility] 11-28-2024 15:42-0400 Body mass index (BMI) [Ratio] 30.54 kg/m2 Zac Crouch MD Work Phone: [facility] 11-28-2024 15:42-0400 Body temperature 97.9 [degF] Zac Crouch MD Work Phone: [facility] 11-28-2024 15:42-0400 Body weight 105 kg Zac Crouch MD Work Phone: [facility] 11-28-2024 15:42-0400 Diastolic blood pressure 83 mm[Hg] Zac Crouch MD Work Phone: [facility] 11-28-2024 15:42-0400 Heart rate 91 /min Zac Crouch MD Work Phone: [facility] 11-28-2024 15:42-0400 Respiratory rate 18 /min Zac Crouch MD Work Phone: [facility] 11-28-2024 15:42-0400 SaO2% (BldA) [Mass fraction] 99 % Zac Crouch MD Work Phone: [facility] 11-28-2024 15:42-0400 Systolic blood pressure 143 mm[Hg] Zac Crouch MD Work Phone: [facility] 11-22-2024 13:45-0400 Body height 185.4 cm Abrahan Rinaldi MD Work Phone: [facility] 11-22-2024 13:45-0400 Body mass index (BMI) [Ratio] 29.69 kg/m2 Abrahan Rinaldi MD Work Phone: [facility] 11-22-2024 13:45-0400 Body weight 102.06 kg Abrahan Rinaldi MD Work Phone: [facility] 11-22-2024 13:45-0400 Heart rate 110 /min Abrahan Rinaldi MD Work Phone: [facility] 11-22-2024 13:45-0400 SaO2% (BldA) [Mass fraction] 98 % Abrahan Rinaldi MD Work Phone: [facility] 08-27-2024 06:41-0500 Body height 185.42 cm Francisca Wade MD Work Phone: [facility] 08-27-2024 06:41-0500 Body weight 111.13 kg Francisca aWde MD Work Phone: [facility] 07-25-2024 13:42-0500 Body height 185.4 cm Marcell Kraft MD Work Phone: [facility] [employer] 07-25-2024 13:42-0500 Body mass index (BMI) [Ratio] 33.65 kg/m2 Marcell Kraft MD Work Phone: [facility] 07-25-2024 13:42-0500 Body temperature 98.01 [degF] Marcell Kraft MD Work Phone: [facility] 07-25-2024 13:42-0500 Body weight 115.7 kg Marcell Kraft MD Work Phone: [facility] 07-18-2024 10:53-0500 Body height 185.4 cm Marcell Yergler SENIOR MANAGING DIRECTOR-DYNAMICS AX SOLUTION ARCHITECT Work Phone: [facility] 07-18-2024 10:53-0500 Body mass index (BMI) [Ratio] 33.64 kg/m2 Marcell Yergler SENIOR MANAGING DIRECTOR-DYNAMICS AX SOLUTION ARCHITECT Work Phone: [facility] 07-18-2024 10:53-0500 Body weight 115.67 kg Marcell Yergler SENIOR MANAGING DIRECTOR-DYNAMICS AX SOLUTION ARCHITECT Work Phone: [facility] 07-18-2024 10:53-0500 Diastolic blood pressure 98 mm[Hg] Marcell Yergler SENIOR MANAGING DIRECTOR-DYNAMICS AX SOLUTION ARCHITECT Work Phone: [facility] 07-18-2024 10:53-0500 Heart rate 99 /min Marcell Yergler SENIOR MANAGING DIRECTOR-DYNAMICS AX SOLUTION ARCHITECT Work Phone: [facility] 07-18-2024 10:53-0500 Systolic blood pressure 172 mm[Hg] Marcell Yergler SENIOR MANAGING DIRECTOR-DYNAMICS AX SOLUTION ARCHITECT Work Phone: [facility] 06-20-2024 14:22-0500 Body height 185.4 cm Ang Figueroa MD Work Phone: [facility] 06-20-2024 14:22-0500 Body mass index (BMI) [Ratio] 32.98 kg/m2 Ang Figueroa MD Work Phone: [facility] 06-20-2024 14:22-0500 Body temperature 96.8 [degF] Ang Figueroa MD Work Phone: [facility] 06-20-2024 14:22-0500 Body weight 113.4 kg Ang Figueroa MD Work Phone: [facility] 06-05-2024 13:28-0400 Body height 185.42 cm [facility] 06-05-2024 13:28-0400 Body mass index (BMI) [Ratio] 33 kg/m2 [facility] 06-05-2024 13:28-0400 Body weight 113.39 kg [facility] 06-05-2024 13:28-0400 Diastolic blood pressure 94 mm[Hg] [facility] 06-05-2024 13:28-0400 Heart rate 90 /min [facility] 06-05-2024 13:28-0400 Systolic blood pressure 140 mm[Hg] [facility] 04-18-2024 13:24-0400 Body height 185.4 cm nAg Figueroa MD Work Phone: [facility] 04-18-2024 13:24-0400 Body mass index (BMI) [Ratio] 33.39 kg/m2 Ang Figueroa MD Work Phone: [facility] 04-18-2024 13:24-0400 Body temperature 96.91 [degF] Ang Figueroa MD Work Phone: [facility] 04-18-2024 13:24-0400 Body weight 114.8 kg Ang Figueroa MD Work Phone: [facility] 04-02-2024 12:58-0400 Body height 185.4 cm Eddie LOZA Work Phone: [facility] 04-02-2024 12:58-0400 Body mass index (BMI) [Ratio] 33.38 kg/m2 Eddie LOZA Work Phone: [facility] 04-02-2024 12:58-0400 Body weight 114.76 kg Eddie LOZA Work Phone: [facility] 04-02-2024 12:58-0400 Diastolic blood pressure 83 mm[Hg] Eddie Torre SENIOR MANAGING DIRECTOR-DYNAMICS AX SOLUTION ARCHITECT Work Phone: [facility] 04-02-2024 12:58-0400 Heart rate 100 /min Eddie Torre SENIOR MANAGING DIRECTOR-DYNAMICS AX SOLUTION ARCHITECT Work Phone: [facility] 04-02-2024 12:58-0400 Respiratory rate 18 /min Eddie Torre SENIOR MANAGING DIRECTOR-DYNAMICS AX SOLUTION ARCHITECT Work Phone: [facility] 04-02-2024 12:58-0400 SaO2% (BldA) [Mass fraction] 98 % Eddie Torre SENIOR MANAGING DIRECTOR-DYNAMICS AX SOLUTION ARCHITECT Work Phone: [facility] 04-02-2024 12:58-0400 Systolic blood pressure 157 mm[Hg] Eddie Torre SENIOR MANAGING DIRECTOR-DYNAMICS AX SOLUTION ARCHITECT Work Phone: [facility] 03-14-2024 13:08-0400 Body height 185.4 cm Rehana Poslaiko PA-C Work Phone: [facility] 03-14-2024 13:08-0400 Body mass index (BMI) [Ratio] 33.25 kg/m2 Rehana Poslaiko PA-C Work Phone: [facility] 03-14-2024 13:08-0400 Body temperature 97.7 [degF] Rehana Poslaiko PA-C Work Phone: [facility] 03-14-2024 13:08-0400 Body weight 114.31 kg Rehana Poslaiko PA-C Work Phone: [facility] 02-28-2024 13:01-0400 Body height 185.42 cm [facility] 02-28-2024 13:01-0400 Body mass index (BMI) [Ratio] 32.5 kg/m2 [facility] 02-28-2024 13:01-0400 Body weight 112.03 kg [facility] 02-22-2024 13:03-0400 Body height 185.4 cm Ang Figueroa MD Work Phone: [facility] 02-22-2024 13:03-0400 Body mass index (BMI) [Ratio] 33.31 kg/m2 Ang Figueroa MD Work Phone: [facility] 02-22-2024 13:03-0400 Body temperature 98.4 [degF] Ang Figueroa MD Work Phone: [facility] 02-22-2024 13:03-0400 Body weight 114.5 kg Ang Figueroa MD Work Phone: [facility] 02-03-2024 08:17-0400 Body temperature 98.29 [degF] Leatha Saldivar MD Work Phone: [facility] 02-03-2024 08:17-0400 Diastolic blood pressure 69 mm[Hg] Leatha Saldivar MD Work Phone: [facility] 02-03-2024 08:17-0400 Heart rate 79 /min Leatha Saldivar MD Work Phone: [facility] 02-03-2024 08:17-0400 Respiratory rate 14 /min Leatha Saldivar MD Work Phone: [facility] 02-03-2024 08:17-0400 SaO2% (BldA) [Mass fraction] 98 % Leatha Saldivar MD Work Phone: [facility] 02-03-2024 08:17-0400 Systolic blood pressure 127 mm[Hg] Leatha Saldivar MD Work Phone: [facility] 02-01-2024 00:31-0400 Body mass index (BMI) [Ratio] 32.61 kg/m2 Leatha Saldiavr MD Work Phone: [facility] 02-01-2024 00:31-0400 Body weight 112.1 kg Leatha Saldivar MD Work Phone: [facility] 01-29-2024 11:12-0400 Body height 185.4 cm Leatha Saldivar MD Work Phone: [facility] 01-22-2024 15:16-0400 Body temperature 97.7 [degF] Mahammad Imani DO Work Phone: [facility] 01-22-2024 15:16-0400 Diastolic blood pressure 88 mm[Hg] Mahammad Imani DO Work Phone: [facility] 01-22-2024 15:16-0400 Heart rate 87 /min Mahammad Imani DO Work Phone: [facility] 01-22-2024 15:16-0400 Respiratory rate 18 /min Mahammad Imani DO Work Phone: [facility] 01-22-2024 15:16-0400 SaO2% (BldA) [Mass fraction] 94 % Mahammad Imani DO Work Phone: [facility] 01-22-2024 15:16-0400 Systolic blood pressure 126 mm[Hg] Mahammad Imani DO Work Phone: [facility] 01-21-2024 23:28-0400 Body mass index (BMI) [Ratio] 34.47 kg/m2 Mahammad Imani DO Work Phone: [facility] 01-21-2024 23:28-0400 Body weight 118.5 kg Mahammad Imani DO Work Phone: [facility] 01-18-2024 10:49-0400 Body height 185.4 cm Mahammad Imani DO Work Phone: [facility] 12-01-2023 10:41-0400 Body height 185.42 cm LUIS Du Work Phone: [facility] 12-01-2023 10:41-0400 Body mass index (BMI) [Ratio] 33.7 kg/m2 LUIS Du Work Phone: [facility] 12-01-2023 10:41-0400 Body weight 116.11 kg PAKatherin Du Work Phone: [facility] 11-13-2023 09:22-0400 Diastolic blood pressure 101 mm[Hg] PA-Venu Du Work Phone: [facility] 11-13-2023 09:22-0400 Heart rate 88 /min PA-Venu Du Work Phone: [facility] 11-13-2023 09:22-0400 Respiratory rate 16 /min PA-Venu Du Work Phone: [facility] 11-13-2023 09:22-0400 SaO2% (BldA) [Mass fraction] 97 % LUIS Du Work Phone: [facility] 11-13-2023 09:22-0400 Systolic blood pressure 178 mm[Hg] HUBERT-Venu Du Work Phone: [facility] 11-13-2023 09:16-0400 Body height 185.42 cm PA-Venu Du Work Phone: [facility] 11-13-2023 09:16-0400 Body weight 117.93 kg LUIS Du Work Phone: [facility] 11-01-2023 14:35-0400 Body temperature 97.8 [degF] LUIS Du Work Phone: [facility] 11-01-2023 14:35-0400 Diastolic blood pressure 88 mm[Hg] LUIS Du Work Phone: [facility] 11-01-2023 14:35-0400 Heart rate 100 /min LUIS Du Work Phone: [facility] 11-01-2023 14:35-0400 Respiratory rate 16 /min LUIS Du Work Phone: [facility] 11-01-2023 14:35-0400 SaO2% (BldA) [Mass fraction] 96 % LUIS Du Work Phone: [facility] 11-01-2023 14:35-0400 Systolic blood pressure 170 mm[Hg] PA-Venu Du Work Phone: [facility] 11-01-2023 11:29-0400 Body height 185.42 cm PA-Venu Du Work Phone: [facility] 11-01-2023 11:29-0400 Body weight 118 kg PA-C Jd Du Work Phone: [facility] 08-10-2023 14:45-0500 Body height 185.42 cm PA-C Jd Du Work Phone: [facility] 08-10-2023 14:45-0500 Body weight 117.93 kg PA-C Jd Du Work Phone: [facility] 08-10-2023 14:45-0500 Diastolic blood pressure 96 mm[Hg] PA-Venu Du Work Phone: [facility] 08-10-2023 14:45-0500 Systolic blood pressure 149 mm[Hg] PA-Venu Du Work Phone: [facility] 04-24-2023 11:02-0400 Diastolic blood pressure 98 mm[Hg] PA-Venu Du Work Phone: [facility] 04-24-2023 11:02-0400 Heart rate 78 /min LUIS Du Work Phone: [facility] 04-24-2023 11:02-0400 Respiratory rate 18 /min PA-Venu Du Work Phone: [facility] 04-24-2023 11:02-0400 SaO2% (BldA) [Mass fraction] 98 % HUBERT-Venu Du Work Phone: [facility] 04-24-2023 11:02-0400 Systolic blood pressure 141 mm[Hg] HUBERT-Venu Du Work Phone: [facility] 04-24-2023 10:55-0400 Body height 185.42 cm PA-C Jd Du Work Phone: [facility] 04-24-2023 10:55-0400 Body weight 114.3 kg PA-C Jd Du Work Phone: [facility] 03-21-2023 13:56-0400 Diastolic blood pressure 89 mm[Hg] PA-Venu Du Work Phone: [facility] 03-21-2023 13:56-0400 Heart rate 82 /min PA-C Jd Du Work Phone: [facility] 03-21-2023 13:56-0400 Respiratory rate 14 /min PA-C Jd Du Work Phone: [facility] 03-21-2023 13:56-0400 SaO2% (BldA) [Mass fraction] 95 % PA-Venu Du Work Phone: [facility] 03-21-2023 13:56-0400 Systolic blood pressure 129 mm[Hg] PA-Venu Du Work Phone: [facility] 03-21-2023 12:23-0400 Body height 185.42 cm PA-C Jd Du Work Phone: [facility] 03-21-2023 12:23-0400 Body temperature 98.2 [degF] HUBERT-Venu Du Work Phone: [facility] 03-21-2023 12:23-0400 Body weight 115.66 kg PA-Venu Du Work Phone: [facility] 03-01-2023 15:15-0400 Body height Guillermo Thornton Other [employer] Other 03-01-2023 15:15-0400 Body mass index (BMI) [Ratio] 32.98 kg/m2 Guillermo Thornton Other [employer] Other 03-01-2023 15:15-0400 Body weight 113.4 kg Guillermo Thornton Other [employer] Other 03-01-2023 15:15-0400 Diastolic blood pressure 107 mm[Hg] Guillermo Thornton Other [employer] Other 03-01-2023 15:15-0400 Systolic blood pressure 145 mm[Hg] Guillermo Thornton Other [employer] Other 08-24-2022 12:00-0500 Body height Sugar Knight Other [employer] Other 08-24-2022 12:00-0500 Body mass index (BMI) [Ratio] 33.69 kg/m2 Sugar Knight Other [employer] Other 08-24-2022 12:00-0500 Body weight 115.85 kg Sugar Knight Other [employer] Other 08-24-2022 12:00-0500 Diastolic blood pressure 108 mm[Hg] Sugar Knight Other [employer] Other 08-24-2022 12:00-0500 Respiratory rate 20 /min Sugar Knight Other [employer] Other 08-24-2022 12:00-0500 SaO2% (BldA) [Mass fraction] 98 % Sugar Knight Other [employer] Other 08-24-2022 12:00-0500 Systolic blood pressure 176 mm[Hg] Sugar Knight Other [employer] Other 08-03-2022 12:34-0500 Diastolic blood pressure 86 mm[Hg] LUIS Du Work Phone: [facility] 08-03-2022 12:34-0500 Heart rate 81 /min LUIS Du Work Phone: [facility] 08-03-2022 12:34-0500 Respiratory rate 20 /min LUIS Du Work Phone: [facility] 08-03-2022 12:34-0500 SaO2% (BldA) [Mass fraction] 95 % LIUS Du Work Phone: [facility] 08-03-2022 12:34-0500 Systolic blood pressure 134 mm[Hg] LUIS Du Work Phone: [facility] 08-03-2022 11:51-0500 Inhaled oxygen flow rate 3 L/min LUIS Du Work Phone: [facility] 08-03-2022 10:54-0500 Body height 185.42 cm LUIS Du Work Phone: [facility] 08-03-2022 10:54-0500 Body weight 117.93 kg LUIS Du Work Phone: [facility] 07-28-2022 10:30-0500 Body height Sugar Knight Other [employer] Other 07-28-2022 10:30-0500 Body mass index (BMI) [Ratio] 34.96 kg/m2 Sugar Knight Other [employer] Other 07-28-2022 10:30-0500 Body weight 120.2 kg Sugar Knight Other [employer] Other 07-28-2022 10:30-0500 Diastolic blood pressure 100 mm[Hg] Sugar Knight Other [employer] Other 07-28-2022 10:30-0500 Systolic blood pressure 150 mm[Hg] Sugar Knight Other [employer] Other 06-01-2022 12:42-0400 Diastolic blood pressure 93 mm[Hg] LUIS Du Work Phone: [facility] 06-01-2022 12:42-0400 Heart rate 93 /min LUIS Du Work Phone: [facility] 06-01-2022 12:42-0400 Respiratory rate 20 /min LUIS Du Work Phone: [facility] 06-01-2022 12:42-0400 SaO2% (BldA) [Mass fraction] 94 % LUIS Du Work Phone: [facility] 06-01-2022 12:42-0400 Systolic blood pressure 156 mm[Hg] LUIS Du Work Phone: [facility] 06-01-2022 12:07-0400 Inhaled oxygen flow rate 3 L/min LUIS Du Work Phone: [facility] 06-01-2022 11:17-0400 Body height 185.42 cm LUIS Du Work Phone: [facility] 06-01-2022 11:17-0400 Body weight 117.93 kg LUIS Du Work Phone: [facility] 04-27-2022 17:45-0400 Body height Asa Moeller Other [employer] Other 04-27-2022 17:45-0400 Body mass index (BMI) [Ratio] 34.72 kg/m2 Asa Moeller Other [employer] Other 04-27-2022 17:45-0400 Body weight 119.39 kg Asa Sajan Other [employer] Other 04-27-2022 17:45-0400 SaO2% (BldA) [Mass fraction] 96 % Asa Juarezky Other [employer] Other 04-15-2022 14:08-0400 Diastolic blood pressure 99 mm[Hg] PA-C Jd Du Work Phone: [facility] 04-15-2022 14:08-0400 Heart rate 82 /min PA-C Jd Du Work Phone: [facility] 04-15-2022 14:08-0400 Respiratory rate 20 /min PA-C Jd Du Work Phone: [facility] 04-15-2022 14:08-0400 SaO2% (BldA) [Mass fraction] 96 % PA-C Jd Du Work Phone: [facility] 04-15-2022 14:08-0400 Systolic blood pressure 170 mm[Hg] PA-C Jd Du Work Phone: [facility] 04-15-2022 14:06-0400 Body height 185.42 cm PA-Venu Du Work Phone: [facility] 04-15-2022 14:06-0400 Body weight 117.02 kg PA-C Jd Du Work Phone: [facility] 03-31-2022 16:00-0400 Body height Asa Juarezky Other [employer] Other 03-31-2022 16:00-0400 Body mass index (BMI) [Ratio] 34.43 kg/m2 Asa Sajan Other [employer] Other 03-31-2022 16:00-0400 Body weight 118.39 kg Asa Moeller Other [employer] Other 03-31-2022 16:00-0400 SaO2% (BldA) [Mass fraction] 98 % Asa Moeller Other [employer] Other 12-20-2021 16:15-0400 Body height Bird Slade Other [employer] Other 12-20-2021 16:15-0400 Body mass index (BMI) [Ratio] 34.56 kg/m2 Bird Slade Other [employer] Other 12-20-2021 16:15-0400 Body weight 118.84 kg Bird Slade Other [employer] Other 08-25-2021 16:15-0500 Body height Jeff Mandel Other [employer] Other 08-25-2021 16:15-0500 Body mass index (BMI) [Ratio] 34.56 kg/m2 Jeff Mandel Other [employer] Other 08-25-2021 16:15-0500 Body weight 118.84 kg Jeff Mandel Other [employer] Other 08-23-2021 16:30-0500 Body height Bird Slade Other [employer] Other 08-23-2021 16:30-0500 Body mass index (BMI) [Ratio] 34.56 kg/m2 Bird Slade Other [employer] Other 08-23-2021 16:30-0500 Body weight 118.84 kg Bird Slade Other [employer] Other Encounters Encounter Date Encounter Type Care Provider Facility Start: 02-21-2025 End: 02-21-2025 Office outpatient visit 25 minutes Alistair Mcnally MD Work Phone: Pain Management Comment on above: Radiculopathy, lumba r region; Diabetic peripheral neuropathy (HCC); Thrombocytopenia; History of total right hip replacement; H/O lumbar discectomy; Polyneuropathy Start: 02-21-2025 End: 02-21-2025 Social Work Ashley Lema [facility] Hematology/Oncology Start: 02-20-2025 End: 02-20-2025 [facility] Start: 02-20-2025 End: 02-20-2025 Office outpatient visit 15 minutes Zac Crouch MD Work Phone: Hematology/Oncology Comment on above: Thrombocytopenia (Pr imary Dx); Malignant neoplasm of colon, unspecified part of colon (HCC); Elevated carcinoembryonic antigen (CEA) Start: 01-29-2025 End: 01-29-2025 Telephone encounter Marc Alves MD Work Phone: [facility] Start: 01-29-2025 End: 01-29-2025 Evaluation and management of inpatient MARC ALVES [facility] Start: 01-15-2025 End: 01-15-2025 Patient encounter procedure [facility] Pre-Admission Testing 2 [facility] - [facility] Comment on above: Preop examination (P rimary Dx); Hypertension, unspecified type; Type 2 diabetes mellitus with other circulatory complication, with long-term current use of insulin ([facility]-HCC) Start: 01-15-2025 End: 01-15-2025 Preprocedural examination done Pm 2 [facility] Start: 01-15-2025 End: 01-15-2025 ambulatory JEFF BARRETT [facility] Start: 01-15-2025 Encounter for other preprocedural examination [facility] Start: 01-13-2025 End: 01-13-2025 Telemedicine consultation with patient Alistair Mcnally MD Work Phone: Pain Management Start: 01-13-2025 End: 01-13-2025 ambulatory Alistair Mcnally MD Work Phone: Pain Management Comment on above: Radiculopathy, lumba r region (Primary Dx); Diabetic peripheral neuropathy (HCC); Thrombocytopenia; History of total right hip replacement; H/O lumbar discectomy; Chronic pain syndrome Start: 12-30-2024 End: 12-30-2024 ambulatory Francisca Wade Facility:[facility] Start: 12-26-2024 End: 12-26-2024 ambulatory Komalmisael [place]ale Hernaedz APRN.DYNAMICS [employer] SOLUTION ARCHITECT Work Phone: Pain Management Comment on above: Questionnaire Submis deejay Start: 12-26-2024 End: 12-26-2024 E-mail encounter from caregiver Komal Valdes Satya LOPEZ.[employer]UTION ARCHITECT Work Phone: Pain Management Start: 12-18-2024 End: 12-20-2024 Telephone encounter Abrahan Rinaldi MD Work Phone: Pain Management Comment on above: Pain Procedure Respo nse & follow up (Right L5-S1 Transforaminal Epidural Steroid injection # 1) Start: 12-16-2024 End: 12-16-2024 ambulatory ABRAHAN RINALDI Facility:[facility] Start: 12-12-2024 End: 12-12-2024 Patient encounter procedure Francisca Wade MD Work Phone: [facility] [place] Work Phone: Start: 12-12-2024 End: 12-12-2024 ambulatory Francisca Wade MD Work Phone: [facility] Work Phone: Start: 12-05-2024 End: 12-05-2024 ambulatory [facility] Work Phone: Start: 12-05-2024 End: 12-05-2024 Patient encounter procedure [facility] Work Phone: Start: 12-04-2024 End: 12-04-2024 Office outpatient new 45 minutes Vivek GASPAR Work Phone: [facility] Comment on above: Benign prostatic hyp erplasia, unspecified whether lower urinary tract symptoms present (Primary Dx); Difficulty urinating Start: 12-04-2024 End: 12-04-2024 ambulatory VIVEK GILLIS [facility] Start: 12-02-2024 End: 12-02-2024 Telephone encounter Abrahan Rinaldi MD Work Phone: Ambulatory Surgery Comment on above: Schedule Injection Start: 11-28-2024 End: 11-28-2024 Office outpatient new 45 minutes Zac Crouch MD Work Phone: Hematology/Oncology Comment on above: Malignant neoplasm o f colon, unspecified part of colon (HCC) (Primary Dx); Thrombocytopenia Start: 11-28-2024 End: 11-28-2024 ambulatory ABRAHAN RINALDI Facility:[facility] Start: 11-25-2024 End: 11-25-2024 Telephone encounter Zac Crouch MD Work Phone: Hematology/Oncology Start: 11-22-2024 End: 11-22-2024 ambulatory ABRAHAN RINALDI Facility:[facility] Start: 11-22-2024 End: 11-22-2024 Patient encounter procedure [...] 11-12-2024 End: 11-12-2024 Emergency department patient visit FRANCISCA WADE [facility] Start: 11-08-2024 End: 11-08-2024 ambulatory JD ITALencho DU Facility:[facility] Start: 11-08-2024 End: 11-08-2024 Telemedicine consultation with patient Martha Faulkner [employer] ARCHITECT Work Phone: Telemedicine Comment on above: Acute right-sided lo w back pain with right-sided sciatica (Primary Dx) Start: 11-04-2024 End: 11-04-2024 ambulatory Winston Owens MD Facility:[facility] Start: 11-03-2024 End: 11-03-2024 Emergency department patient visit FRANCISCA WADE [facility] Start: 09-23-2024 End: 09-23-2024 ambulatory Winston Owens MD Facility:[facility] Start: 09-17-2024 End: 09-17-2024 Telephone encounter Hannah Gantai [facility] Start: 09-04-2024 End: 09-04-2024 Refill Marcell Badillo SENIOR MANAGING DIRECTOR-DYNAMICS AX SOLUTION ARCHITECT Work Phone: [facility] Comment on above: Lumbar radiculopathy , chronic Lumbar radiculopathy , chronic (Primary Dx); History of lumbar surgery; Lumbar spondylosis; Bilateral hand pain Start: 08-28-2024 End: 08-28-2024 Refill Marcell Badillo SENIOR MANAGING DIRECTOR-DYNAMICS AX SOLUTION ARCHITECT Work Phone: [facility] Comment on above: Lumbar radiculopathy , chronic Start: 08-27-2024 End: 08-27-2024 Patient encounter procedure Francisca Wade MD Work Phone: [facility] [place] Work Phone: Start: 08-27-2024 End: 08-27-2024 ambulatory Francisca Wade MD Work Phone: [facility] Work Phone: Start: 08-21-2024 End: 08-21-2024 Refill Marcell Badillo SENIOR MANAGING DIRECTOR-DYNAMICS AX SOLUTION ARCHITECT Work Phone: [facility] Comment on above: Lumbar radiculopathy , chronic Start: 08-13-2024 End: 08-15-2024 Refill Marcell Badillo APRN-DYNAMICS [employer] SOLUTION ARCHITECT Work Phone: [facility] Comment on above: Lumbar radiculopathy , chronic Start: 08-05-2024 End: 08-05-2024 Bamboo flowsheet Erick Naylor DO Work Phone: [facility] Start: 08-05-2024 End: 08-05-2024 Bamboo flowsheet Erick Naylor DO Work Phone: [facility] Start: 08-05-2024 End: 08-08-2024 Patient encounter procedure Erick Naylor DO Work Phone: [facility] Comment on above: Paresthesia (Primary Dx) Lumbar radiculopathy , chronic Start: 08-05-2024 End: 08-05-2024 ambulatory ERICK NAYLOR Not Available Start: 07-25-2024 End: 07-25-2024 Office outpatient visit 25 minutes Marcell Kraft MD Work Phone: [facility]/Trauma and Adult Reconstruction Comment on above: Trochanteric bursiti s of right hip (Primary Dx) Start: 07-25-2024 End: 07-25-2024 ambulatory [facility] Start: 07-24-2024 End: 07-24-2024 Refill Laura HAWK [facility] Comment on above: Lumbar radiculopathy , chronic Start: 07-18-2024 End: 07-18-2024 Office outpatient new 60 minutes Marcell Badillo APRN-DYNAMICS AX SOLUTION ARCHITECT Work Phone: [facility] Comment on above: Lumbar radiculopathy , chronic (Primary Dx); Left cervical radiculopathy; Bilateral hand pain; Bilateral hand numbness; Lumbar spondylosis; Cervical spondylosis; Chronic midline low back pain without sciatica; History of lumbar surgery; Anxiety Start: 07-18-2024 End: 07-18-2024 ambulatory [facility] Start: 07-16-2024 End: 07-16-2024 ambulatory MARCELL M [facility] Start: 07-09-2024 End: 07-09-2024 Orders Only [facility] Comment on above: Closed displaced int ertrochanteric fracture of right femur with routine healing, subsequent encounter (Primary Dx) Start: 07-02-2024 End: 07-02-2024 Orders Only [facility] Comment on above: Back pain, unspecifi ed back location, unspecified back pain laterality, unspecified chronicity (Primary Dx) Start: 06-20-2024 End: 06-20-2024 Office outpatient visit 25 minutes Ang Figueroa MD Work Phone: [facility] Comment on above: Right knee pain, uns pecified chronicity (Primary Dx) Start: 06-20-2024 End: 06-20-2024 ambulatory ANG [facility] Start: 06-17-2024 End: 06-17-2024 Orders Only Connie [facility]bin RN [facility] Comment on above: Right knee pain, uns pecified chronicity (Primary Dx) Start: 06-07-2024 End: 06-07-2024 Emergency department patient visit DIANE MCGRATH [facility] Start: 06-05-2024 End: 06-05-2024 ambulatory [facility] Work Phone: Start: 06-05-2024 End: 06-05-2024 Patient encounter procedure [facility] Gastroenterology Work Phone: Start: 06-03-2024 End: 06-03-2024 ambulatory [facility] Start: 05-07-2024 End: 05-08-2024 Emergency department patient visit BRENNEN MICHELLE [facility] Start: 05-07-2024 End: 05-07-2024 Emergency department patient visit [facility] Start: 04-18-2024 End: 04-18-2024 Postop follow up visit related to original px Ang Figueroa MD Work Phone: [facility]/Trauma and Adult Reconstruction Comment on above: Closed displaced int ertrochanteric fracture of right femur with routine healing, subsequent encounter (Primary Dx) Start: 04-18-2024 End: 04-18-2024 ambulatory TOM [facility] Start: 04-04-2024 End: 04-09-2024 Telephone encounter Lorena Red RN [facility] Start: 04-02-2024 End: 04-02-2024 [facility] SENIOR MANAGING DIRECTOR-DYNAMICS AX SOLUTION ARCHITECT Work Phone: [facility] Comment on above: Disorder of sacrum ( Primary Dx) Start: 04-02-2024 End: 04-02-20[facility] Start: 03-18-2024 End: 03-18-2024 Orders Only Tom GONZALEZC Work Phone: [facility]/Trauma and Adult Reconstruction Comment on above: Closed fracture of r ight hip, initial encounter ([facility]) Start: 03-14-2024 End: 03-14-2024 Postop follow up visit related to original px Rehana Retana PA-C Work Phone: [facility] Comment on above: Closed displaced int ertrochanteric fracture of right femur with routine healing, subsequent encounter (Primary Dx); Trochanteric bursitis of right hip Start: 03-14-2024 End: 03-14-2024 ambulatory ANG FIGUEROA [facility] Start: 03-07-2024 End: 03-07-2024 Megha Davis MD Work Phone: [facility] Start: 03-06-2024 End: 03-06-2024 ambulatory [facility] Start: 02-28-2024 End: 02-28-2024 ambulatory [facility] Work Phone: Start: 02-28-2024 End: 02-28-2024 Patient encounter procedure [facility] Work Phone: Start: 02-26-2024 End: 02-26-2024 Orders Only Tom Marquez PA-C Work Phone: [facility]Tra[facility] Adult Re[facility] Comment on above: Closed fracture of r ight hip, initial encounter ([facility] Start: 02-23-2024 End: 02-23-2024 Orders Only Tom Marquez PA-C Work Phone: [facility]Tra[facility] Adult [facility] Comment on above: Closed fracture of r ight hip, initial encounter ([facility] Start: 02-22-2024 End: 02-22-2024 ambulatory [facility] Start: 02-22-2024 End: 02-22-2024 ambulatory [facility] Comment on above: Periprosthetic fract ure of hip, subsequent encounter (Primary Dx) Start: 02-22-2024 End: 02-22-2024 Postop follow up visit related to original px Ang Figueroa MD Work Phone: [facility] Comment on above: Localized swelling o f right lower extremity (Primary Dx); Periprosthetic fracture of hip, subsequent encounter Start: 02-19-2024 End: 02-19-2024 Orders Only Tom Raymond Marquez PA-C Work Phone: [facility]Tra[facility] Adult Re[facility] Comment on above: Closed fracture of r ight hip, initial encounter ([facility]) Start: 02-12-2024 End: 02-12-2024 Orders Only Any GASPAR Work Phone: [facility]Tra[facility] Adult [facility] Start: 02-09-2024 End: 02-09-2024 Megha Davis MD Work Phone: [facility] Start: 02-09-2024 End: 02-10-2024 Evaluation and management of inpatient TOM MARQUEZ [facility] Start: 02-06-2024 End: 02-06-2024 [facility] Start: 02-03-2024 End: 02-09-2024 Evaluation and management of inpatient [facility] Start: 01-30-2024 End: 01-30-2024 ambulatory [facility] Start: 01-29-2024 End: 02-03-2024 Evaluation and management of inpatient JAMISON Vanessa [facility] Comment on above: Closed fracture of r ight hip, initial encounter ([facility]) (Primary Dx); Periprosthetic fracture of hip, sequela; Periprosthetic fracture of hip, subsequent encounter Start: 01-29-2024 End: 01-29-2024 Office outpatient visit 40 minutes Jalen Gan MD Work Phone: [facility]/Trauma and Adult Reconstruction Comment on above: Closed displaced int ertrochanteric fracture of right femur, sequela (Primary Dx); Closed displaced subtrochanteric fracture of right femur, initial encounter ([facility]) Start: 01-29-2024 End: 02-09-2024 ambulatory JD Mendez [facility] Start: 01-27-2024 End: 01-30-2024 Evaluation and management of inpatient CORTES SANDOVAL [facility] Start: 01-27-2024 End: 01-30-2024 Evaluation and management of inpatient TONG HARDING [facility] Start: 01-23-2024 End: 01-23-2024 ambulatory JD Vanessa [facility] Start: 01-22-2024 End: 01-29-2024 Evaluation and management of inpatient [facility] Start: 01-18-2024 End: 01-18-2024 ambulatory MÓNICA PORTILLO [facility] Start: 01-17-2024 End: 01-17-2024 Orders Only Connie Corbin RN [facility]/Trauma and Adult Reconstruction Comment on above: Closed displaced int ertrochanteric fracture of right femur with routine healing, subsequent encounter (Primary Dx) Start: 01-17-2024 End: 01-23-2024 Emergency department patient visit EDIE ARREOLA [facility] Start: 01-17-2024 Encounter for other preprocedural examination GEOFFREY MCKEE [facility] Start: 01-17-2024 End: 01-22-2024 Evaluation and management of inpatient JD DU [facility] Comment on above: Closed fracture of r ight hip, initial encounter ([facility]) (Primary Dx) Start: 01-09-2024 End: 01-09-2024 ambulatory DIONTE FREEMAN Not Available Start: 01-02-2024 End: 01-02-2024 ambulatory CHEY ROMANO Not Available Start: 12-12-2023 End: 12-12-2023 ambulatory DIONTE FREEMAN Not Available Start: 12-01-2023 End: 12-01-2023 ambulatory LUIS Du Work Phone: [facility] Work Phone: Start: 12-01-2023 End: 12-01-2023 Patient encounter procedure LUIS Du Work Phone: [facility] Work Phone: Start: 11-13-2023 End: 11-13-2023 ambulatory LUIS Du Work Phone: [facility] Work Phone: Start: 11-13-2023 End: 11-13-2023 Patient encounter procedure LUIS Du Work Phone: [facility] [place] Work Phone: Start: 11-01-2023 End: 11-01-2023 Emergency department patient visit LUIS Du Work Phone: [facility]-Emergency Room Work Phone: Start: 09-13-2023 End: 09-13-2023 ambulatory Guillermo Thornton Other [employer] Other Start: 09-13-2023 Telephone encounter Guillermo [facility] Start: 08-29-2023 End: 08-29-2023 ambulatory Guillerom Thornton Other [employer] Other Start: 08-29-2023 Telephone encounter Guillermo [facility] Start: 08-21-2023 End: 08-21-2023 ambulatory LUIS Du Work Phone: [facility] Work Phone: Start: 08-21-2023 End: 08-21-2023 Patient encounter procedure LUIS Du Work Phone: [facility]-CT Scan [facility] [place] Work Phone: Start: 08-10-2023 End: 08-10-2023 ambulatory Guillermo Thornton Other [place] [employer] Other Start: 08-10-2023 Telephone encounter Guillermo Sam[facility] Start: 08-10-2023 End: 08-10-2023 Patient encounter procedure LUIS Du Work Phone: [facility] Work Phone: Start: 06-23-2023 End: 06-23-2023 Patient encounter procedure LUIS Du Work Phone: [facility] [place] Work Phone: Start: 06-12-2023 End: 06-12-2023 ambulatory Guillermo Thornton Other [employer] Other Start: 06-12-2023 Telephone encounter Guillermo Sampson [facility] Start: 05-16-2023 End: 05-16-2023 ambulatory LUIS Du Work Phone: [facility] Work Phone: Start: 05-16-2023 End: 05-16-2023 Patient encounter procedure LUIS Du Work Phone: [facility] Work Phone: Start: 05-02-2023 End: 05-02-2023 ambulatory Guillermo Thornton Other [employer] Other Start: 05-02-2023 Telephone encounter Guillermo Sampson [facility] Start: 04-24-2023 End: 04-24-2023 ambulatory LUIS Du Work Phone: [facility] Work Phone: Start: 04-24-2023 End: 04-24-2023 Patient encounter procedure LUIS Du Work Phone: [facility] [place] Work Phone: Start: 03-28-2023 End: 03-28-2023 ambulatory Guillermo Thornton Other [employer] Other Start: 03-28-2023 Telephone encounter Guillermo [facility]pson [facility] Start: 03-21-2023 End: 03-21-2023 Admission to same day surgery center LUIS Du Work Phone: [facility] Work Phone: Start: 03-21-2023 End: 03-21-2023 ambulatory LUIS Du Work Phone: [facility] Work Phone: Start: 03-01-2023 End: 03-01-2023 ambulatory Guillermo Thornton Other [employer] Other Start: 03-01-2023 Patient encounter procedure Guillermo Thornton [facility] Start: 02-08-2023 End: 02-08-2023 ambulatory Guillermo Thornton Other [employer] Other Start: 02-08-2023 Telephone encounter Guillermo ASENCIO [facility] Start: 11-30-2022 End: 11-30-2022 ambulatory Angelo Grande Other [employer] Other Start: 11-30-2022 Telephone encounter Angelo Dubon [facility] Start: 10-20-2022 End: 10-20-2022 ambulatory Guillermo Strangey Other [employer] Other Start: 10-20-2022 Telephone encounter Guillermo ASENCIO [facility] Start: 09-01-2022 End: 09-01-2022 ambulatory Guillermo Thornton Other [employer] Other Start: 09-01-2022 Telephone encounter Guillermo ASENCIO [facility] Start: 08-31-2022 End: 08-31-2022 ambulatory Asa Moeller Other [employer] Other Start: 08-31-2022 Telephone encounter Asa Moeller [facility] Start: 08-24-2022 End: 08-24-2022 ambulatory Sugar Knight Other [employer] Other Start: 08-24-2022 Office outpatient vi sit 25 minutes Sugar Knight [facility] Start: 08-19-2022 End: 08-19-2022 ambulatory Asasachin Moeller Other [employer] Other Start: 08-19-2022 Office outpatient vi sit 15 minutes Asa Sajan [facility] Start: 08-16-2022 End: 08-16-2022 ambulatory Asa Moeller Other [employer] Other Start: 08-16-2022 Telephone encounter Asa Moeller [facility] Start: 08-11-2022 End: 08-11-2022 ambulatory Guillermo Thornton Other [employer] Other Start: 08-11-2022 Telephone encounter Guillermo ASENCIO [facility] Start: 08-03-2022 (Procedure) Short Asa Moeller [facility] Start: 08-03-2022 End: 08-03-2022 Admission to same day surgery center LUIS Du Work Phone: [facility] Start: 08-03-2022 End: 08-03-2022 ambulatory LUIS Du Work Phone: [facility] Work Phone: Start: 07-28-2022 End: 07-28-2022 ambulatory Sugar Knight Other [employer] Other Start: 07-28-2022 Office outpatient vi sit 25 minutes Sugar Knight [facility] Start: 07-19-2022 End: 07-19-2022 ambulatory Guillermo Thornton Other [employer] Other Start: 07-19-2022 Telephone encounter Guillermo ASENCIO [facility] Start: 06-28-2022 End: 06-28-2022 ambulatory Sugar Knight Other [employer] Other Start: 06-28-2022 Office outpatient vi sit 25 minutes Sugar Knight [facility] Start: 06-01-2022 (Procedure) [facility] Start: 06-01-2022 End: 06-01-2022 Admission to same day surgery center LUIS Du Work Phone: [facility] Start: 06-01-2022 End: 06-01-2022 ambulatory LUIS Du Work Phone: [facility] Work Phone: Start: 05-24-2022 End: 05-24-2022 ambulatory Asa Sajan Other [employer] Other Start: 05-24-2022 Office outpatient vi sit 15 minutes Asa Sajan [facility] Start: 05-17-2022 End: 05-17-2022 ambulatory Yung Figureoa Other [employer] Other Start: 05-17-2022 Telephone encounter Yung chacon [facility] Start: 04-27-2022 End: 04-27-2022 ambulatory Asa Sajan Other [employer] Other Start: 04-27-2022 Office outpatient vi sit 25 minutes Asa Sajan [facility] Start: 04-15-2022 End: 04-15-2022 Patient encounter procedure LUIS Du Work Phone: [facility] [place] Start: 03-31-2022 End: 03-31-2022 ambulatory Asa Sajan Other [employer] Other Start: 03-31-2022 Office outpatient ne w 45 minutes Asa Sajan [facility] Start: 03-01-2022 End: 03-01-2022 ambulatory Jeff Mandel Other [employer] Other Start: 03-01-2022 Telephone encounter Jeff Mandel [facility] Start: 02-17-2022 End: 02-17-2022 ambulatory Jeff Mandel Other [employer] Other Start: 02-17-2022 Telephone encounter Jeff Mandel [facility] Start: 12-23-2021 End: 12-23-2021 ambulatory Jeff Mandel Other [facility] [employer] Other Start: 12-23-2021 Telephone encounter Jeff Mandel [facility] Start: 12-20-2021 End: 12-20-2021 ambulatory Bird Slade Other [facility] [employer] Other Start: 12-20-2021 Office outpatient vi sit 15 minutes Bird Slade [facility] Start: 12-15-2021 End: 12-15-2021 ambulatory Jeff Mandel Other [facility] [employer] Other Start: 12-15-2021 Telephone encounter Jeff Mandel [facility] Start: 09-30-2021 End: 09-30-2021 ambulatory Jeff Mandel Other [facility] [employer] Other Start: 09-30-2021 Telephone encounter Jeff Mandel [facility] Start: 09-20-2021 End: 09-20-2021 ambulatory Jeff Mandel Other [facility] [employer] Other Start: 09-20-2021 Telephone encounter Jeff Mandel [facility] Start: 09-17-2021 End: 09-17-2021 ambulatory Jeff Mandel Other [facility] [employer] Other Start: 09-17-2021 Telephone encounter Jeff Mandel [facility] Start: 09-01-2021 End: 09-01-2021 ambulatory Bird Slade Other [facility] [employer] Other Start: 09-01-2021 Telephone encounter Bird Slade [facility] Start: 08-25-2021 End: 08-25-2021 ambulatory Jeff Mandel Other [facility] [employer] Other Start: 08-25-2021 Office outpatient vi sit 25 minutes Jeff Mandel [facility] G[facility] Start: 08-23-2021 End: 08-23-2021 ambulatory Jeff Mandel Other [facility] [employer] Other Start: 08-23-2021 Office outpatient ne w 30 minutes Bird Yany [facility] Start: 08-23-2021 Telephone encounter Jeff Mandel [facility] Gastroenter[facility] Start: 10-28-2020 End: 10-28-2020 Patient encounter procedure Jd Du -Pre-Surgical Testing Start: 05-13-2020 End: 05-14-2020 Patient encounter procedure [facility] Facility: Start: 04-23-2018 End: 04-27-2018 Evaluation and management of inpatient [facility] Procedures Date Procedure Procedure Detail [...] dev cleared fda spec home use Leatha Saldivar MD Work Phone: Start: 02-03-2024 Basic metabolic panel calcium total Kandy Saldivar MD Work Phone: Start: 02-03-2024 Adult depression screening assessment Genevieve Davis MD Work Phone: Start: 02-02-2024 Dup-scan xtr veins unilateral/limited study Leatha Saldivar MD Work Phone: Start: 02-02-2024 End: 02-02-2024 Basic metabolic panel calcium total Kandy Saldivar MD Work Phone: Start: 02-01-2024 Gluc bld gluc mntr dev cleared fda spec home use Leatha Saldivar MD Work Phone: Start: 02-01-2024 Gluc bld gluc mntr dev cleared fda spec home use Leatha Saldivar MD Work Phone: Start: 02-01-2024 Blood count complete auto&auto difrntl wbc Marc Keys MD Work Phone: Start: 02-01-2024 End: 02-01-2024 Basic metabolic panel calcium total Kandy Saldivar MD Work Phone: Start: 02-01-2024 Gluc bld gluc mntr dev cleared fda spec home use Leatha Saldivar MD Work Phone: Start: 01-31-2024 Gluc bld gluc mntr dev cleared fda spec home use Leatha Saldivar MD Work Phone: Start: 01-31-2024 End: 01-31-2024 Gluc bld gluc mntr dev cleared fda spec home use Leatha Saldivar MD Work Phone: Start: 01-31-2024 Gluc bld gluc mntr dev cleared fda spec home use Leatha Saldivar MD Work Phone: Start: 01-31-2024 Gluc bld gluc mntr dev cleared fda spec home use Leatha Saldivar MD Work Phone: Start: 01-31-2024 Basic metabolic panel calcium total Albe rt Q Karin WILSON Work Phone: Start: 01-30-2024 Gluc bld gluc mntr dev cleared fda spec home use Leatha Saldivar MD Work Phone: Start: 01-30-2024 Gluc bld gluc mntr dev cleared fda spec home use Leatha Saldivar MD Work Phone: Start: 01-30-2024 Radiologic examination [...] Demond Frazier MD Work Phone: Start: 01-29-2024 PULSE OXIMETRY, SPOT Demond Frazier MD Work Phone: Start: 01-29-2024 Antibody screen Leatha Saldivar MD Work Phone: Start: 01-29-2024 Basic metabolic [...] panel calcium total Sand eep S Brielle MD Work Phone: Start: 01-19-2024 Gluc bld [...] Start: 01-19-2024 Basic metabolic panel calcium total Diane Preciado Brielle WILSON Work Phone: Start: 01-18-2024 Gluc [...] 01-17-2024 Radiologic exam chest single view Edie GASPAR-C Work Phone: Start: 01-17-2024 Gluc bld gluc mntr dev cleared fda spec home use Jeff Martin MD Work Phone: Start: 01-17-2024 PULSE OXIMETRY, SPOT Stephen Castellanos Work Phone: Start: 01-17-2024 Antibody screen Mahammad Imani DO Work Phone: Start: 01-17-2024 Assay of troponin quantitative Geoffrey Mckee DO Work Phone: Start: 01-17-2024 Blood typing serologic abo Edie Arreola PA-C Work Phone: Start: 01-17-2024 Radiologic examination femur minimum 2 views Edie Arreola PA-C Work Phone: Start: 01-17-2024 Ecg routine ecg [...] in Work Phone: Start: 03-21-2023 Esophagogastroduodenoscopy LUIS Preciado tein Work Phone: Start: 08-03-2022 Injection of local [...] Treatment Date Care Activity Detail Author Start: 01-29-2026 Adult BMI Screening Adult BMI Screening [facility] Start: 01-29-2026 Tobacco Screening Tobacco Screening [facility] Start: 01-15-2026 Adult BMI Screening Adult BMI Screening [facility] Start: 01-15-2026 Tobacco Screening Tobacco Screening [facility] Start: 12-04-2025 Adult BMI Screening Adult BMI Screening [facility] Start: 12-04-2025 Tobacco Screening Tobacco Screening [facility] Start: 08-02-2025 Tobacco Counseling Tobacco Counseling [facility] Start: 07-25-2025 Adult BMI Screening Adult BMI Screening [facility] Start: 07-25-2025 Tobacco Screening Tobacco Screening [facility] Start: 07-18-2025 Adult BMI Follow Up Plan Adult BMI Follow Up Plan [facility] Start: 07-18-2025 Adult BMI Screening Adult BMI Screening [facility] Start: 07-18-2025 Tobacco Screening Tobacco Screening [facility] Start: 06-20-2025 Adult BMI Screening Adult BMI Screening [facility] Start: 06-20-2025 Tobacco Screening Tobacco Screening [facility] Start: 06-07-2025 Adult BMI Screening Adult BMI Screening [facility] Start: 06-07-2025 Tobacco Screening Tobacco Screening [facility] Start: 04-18-2025 Adult BMI Screening Adult BMI Screening [facility] Start: 04-18-2025 Tobacco Screening Tobacco Screening [facility] Start: 04-14-2025 Influenza vaccination [facility] Start: 04-02-2025 Adult BMI Screening Adult BMI Screening [facility] Start: 04-02-2025 Tobacco Screening Tobacco Screening [facility] Start: 04-01-2025 End: 04-01-2025 ambulatory 04/01/2025 4:00 PM EDT [facility] [address] [facility] [address] [place] [id number] Alistair Mcnally MD [address] [place] [address] [facility] Comment on above: [facility] Start: 03-19-2025 End: 03-19-2025 ambulatory 03/19/2025 10:00 AM EDT [facility] [address] [place] [address] Thalia Ramirez PSYD [address] [place] [id number] Back,leg,and neck pain [facility] Comment on above: Back,leg,and neck pain Start: 03-14-2025 Adult BMI Screening Adult BMI Screening [facility] Start: 03-14-2025 Tobacco Screening Tobacco Screening [facility] Start: 03-13-2025 End: 03-13-2025 Patient encounter procedure 03/13/2025 1:00 PM EDT Office Visit [facility] [address] [place] [address] Thalia Ramirez PSYD [address] [place] [address] Pain in back,legs, and neck. [facility] Recovery Comment on above: Pain in back,legs, and neck. Start: 02-21-2025 End: 02-21-2025 Patient encounter procedure 02/21/2025 2:15 PM EDT Office Visit Pain Management [address] [place] [address] Alistair Mcnally MD [address] [place] [address] Office Pain Management Comment on above: Office Start: 02-21-2025 Adult BMI Screening Adult BMI Screening [facility] Start: 02-20-2025 End: 02-20-2025 Follow-up encounter 02/20/2025 2:30 PM EDT Visit (SP) Office Hematology/Oncology [address] [place] [address] Zac Crouch MD [address] [place] [address] 3 month follow up Hematology/Oncology Comment on above: 3 month follow up Start: 02-20-2025 End: 02-20-2025 Patient encounter procedure 02/20/2025 2:15 PM EDT Office Visit [facility] [address] [place] [address] 3 month follow up [facility] Comment on above: 3 month follow up Start: 02-20-2025 End: 05-22-2025 Carcinoembryonic Ag [Mass/volume] in Serum or Plasma [facility] Work Phone: Comment on above: Expected: 02/20/2025, Expires: Start: 02-08-2025 Adult BMI Screening Adult BMI Screening [facility] Start: 02-02-2025 Depression Screening Depression Screening [facility] Start: 02-02-2025 Tobacco Screening Tobacco Screening [facility] Start: 01-29-2025 End: 01-29-2025 Admission to same day surgery center 01/29/2025 8:30 AM EDT - 01/29/2025 9:15 AM EDT Surgery [facility] Surgery [address] [place] [id number] Marc Alves MD [address] [place] [id number] CYSTOSCOPY [52890 (CPT )] [facility] Comment on above: CYSTOSCOPY [78140 (CPT )] Start: 01-29-2025 End: 01-29-2025 Anesthesia consultation 01/29/2025 8:30 AM EDT Anesthesia Event [facility] Surgery [address] [place] [address] Jamal Chambers, DO [address] [place] [address] [facility] Start: 01-29-2025 End: 01-29-2025 Cystourethroscopy [facility] Start: 01-29-2025 Subsequent hospital visit by physician 01/29/2025 8:30 AM EDT Hospital Encounter [facility] Surgery [address] [place] [id number] Marc Alves MD [address] [place] [address] [facility] Start: 01-28-2025 Adult BMI Screening Adult BMI Screening [facility] Start: 01-21-2025 Depression Screening Depression Screening [facility] Start: 01-21-2025 Tobacco Screening Tobacco Screening [facility] Start: 01-16-2025 Adult BMI Screening Adult BMI Screening [facility] Start: 01-16-2025 Tobacco Screening Tobacco Screening [facility] Start: 01-03-2025 End: 01-03-2025 ambulatory 01/03/2025 2:00 PM EDT [facility] [address] [place] [address] Komal Hernadez, JOHN.DYNAMICS AX SOLUTION ARCHITECT [address] [place] [address] RTC aftre CELINA/ONC appt Pain Management Comment on above: RTC aftre CELINA/ONC appt Start: 01-03-2025 End: 01-03-2025 Patient encounter procedure 01/03/2025 2:00 PM EDT Office Visit Pain Management [address] [place] [address] Komal Hernadez, JOHN.DYNAMICS AX SOLUTION ARCHITECT [address] [facility] [place] [address] RTC aftre CELINA/ONC appt Pain Management Comment on above: RTC aftre CELINA/ONC appt Start: 12-16-2024 End: 12-16-2024 Admission to same day surgery center 12/16/2024 9:43 AM EDT - 12/16/2024 10:11 AM EDT Surgery Ambulatory Surgery [address] [place] [address] Abrahan Rinaldi MD [address] [place] [address] INJECTION(S) STEROID TRANSFORAMINAL EPIDURAL LUMBAR W/IMAGE GUIDANCE [...] AM EDT Hospital Encounter Ambulatory Surgery [address] [place] [address] Abrahan Rinaldi MD [address] 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], History of lumbar laminectomy [Z98.890], Diabetic peripheral neuropathy (HCC) [E11.42] Ambulatory Surgery Comment on above: Radicular syndrome of right leg [M54.10] , History of lumbar laminectomy [Z98.890], Diabetic peripheral neuropathy (HCC) [E11.42] Start: 11-28-2024 End: 11-28-2024 ambulatory 11/28/2024 4:00 PM EDT Visit (SP) Office Hematology/Oncology [address] [place] [address] [place] [address] Zac Crouch MD [address] [place] [address] [place] [address] Abrahan Rinaldi DX: Thrombocytopenia [D69.6] Hematology/Oncology Comment on above: Ref by Dr Abrahan Rinaldi DX: Thromboc ytopenia [D69.6] Start: 11-28-2024 End: 02-27-2025 COPPER BLOOD [facility] Work Phone: Comment on above: Expected: 11/28/2024, Expires: 5 Start: 11-28-2024 End: 02-27-2025 Zinc [Mass/volume] in Serum or Plasma [facility] Comment on above: Expected: 11/28/2024, Expires: 5 Start: 11-26-2024 End: 11-26-2024 ambulatory 11/26/2024 4:00 PM EDT Visit (SP) Office Hematology/Oncology [address] [place] [address] [place] [address] Zac Crouch MD [address] [place] [address] [place] [address] Abrahan Rinaldi DX: Thrombocytopenia [D69.6] Hematology/Oncology Comment on above: Ref by Dr Abrahan Rinaldi DX: Thromboc ytopenia [D69.6] Start: 11-22-2024 End: 11-22-2024 Patient encounter procedure 11/22/2024 2:00 PM EDT Office Visit Pain Management [address] [facility] [place] [address] Abrahan Rinaldi MD [address] [facility] [place] [place] [address] Acute right-sided low back pain with right-sided sciatica [M54.41] Pain Management Comment on above: Acute right-sided low back pain with rig ht-sided sciatica [M54.41] Start: 09-19-2024 End: 09-19-2024 Patient encounter procedure 09/19/2024 12:00 PM EST Office Visit [facility] [address] [place] [phone] Dionte Torre PA [address] [place] [address] [facility] Start: 08-05-2024 End: 08-05-2024 Patient encounter procedure 08/05/2024 2:00 PM EST Procedure Visit [facility] [address] [phone] Erick Naylor, [address] [place] [address] Arrived [facility] Comment on above: Arrived Start: 07-25-2024 End: 07-25-2024 Patient encounter procedure [facility]/Trauma and Adult Reconstruction Start: 07-19-2024 Hemoglobin A1c measurement HbA1C [facility] Start: 07-18-2024 End: 07-18-2025 MR Lumbar [...] Adult Reconstruction [address] [place] [address] Ang Figueroa MD [address] [place] [address], [address] [place], [place] [phone] [facility] Start: 06-17-2024 End: 06-17-2025 XR Knee - right 1 or 2 Views X-ray knee right 1 or 2 views Imaging Routine Right knee pain, unspecified chronicity Expected: 06/17/2024, Expires: 06/17/2025 [facility] Work Phone: Comment on above: Expected: 06/17/2024, Expires: 5 Start: 04-25-2024 End: 04-25-2024 Patient encounter procedure 04/25/2024 1:15 PM EDT Office Visit [facility] Adult Reconstruction [address] [place] [phone] Ang Figueroa MD [address], [address] [place] [address] [facility] Start: 04-14-2024 COVID-19 Vaccine ( season) COVID-19 Vaccine ( season) [facility] Start: 04-14-2024 COVID-19 Vaccine () COVID-19 Vaccine () [facility] Start: 04-14-[address] [facility] Start: 03-14-2024 End: 03-14-2025 XR Pelvis and [...] Adult Reconstruction [address] [place] [phone] Ang Figueroa MD [address], [address] [place] [address] [facility] Start: [...] Adult Reconstruction [address] [place] [address] Ang Figueroa MD [address], [address] [place] [address] [facility] Reconstruction Start: 02-01-2024 End: 02-01-2024 Patient encounter procedure 02/01/2024 9:30 AM EDT Office Visit [facility] Adult Reconstruction [address] [place] [address] Ang Figueroa MD [address], [address] [place] [address] [facility] Start: 01-31-2024 End: 01-31-2024 Patient encounter procedure 01/31/2024 9:45 AM EDT Office Visit [facility] Adult Reconstruction [address] [place] [address] Chey Lanza MD [address] [place] [address] [facility] Adult Reconstruction Start: 01-29-2024 End: 01-29-2024 Evaluation and management of inpatient [facility] - IP Rehab Occupational Therapy Comment on above: Arrived Start: 01-29-2024 End: 01-29-2024 Evaluation and management of inpatient [facility] - Inpatient Rehab Physical Therapy Comment on above: Arrived Start: 01-18-2024 End: 01-18-2024 Admission to same day surgery center 01/18/2024 12:45 PM EDT - 01/18/2024 2:45 PM EDT Surgery [address] [phone] Chey Lanza MD [address] [place] [address] INSERTION INTRAMEDULLARY NAIL FEMUR-TFNA HIP FX [facility] Comment on above: INSERTION INTRAMEDULLARY NAIL FEMUR-TFNA HIP FX Start: 01-18-2024 End: 01-18-2024 INSERTION INTRAMEDULLARY NAIL FEMUR INSERTION INTRAMEDULLARY NAIL FEMUR Closed displaced intertrochanteric fracture of right femur, initial encounter ([facility]) 01/18/2024 12:45 PM EDT [facility] Start: 01-18-2024 Subsequent hospital visit by physician 01/18/2024 12:45 PM EDT Hospital Encounter [address] [phone] Chey Lanza MD [address] [place] [address] [facility] Start: 01-17-2024 End: 01-16-2025 XR Pelvis and Hip - right 2 Views X-ray hip right 2-3 views with or without pelvis Imaging Routine Closed displaced intertrochanteric fracture of right femur with routine healing, subsequent encounter Expected: 01/17/2024, Expires: 01/16/2025 [facility] Work Phone: Comment on above: Expected: 01/17/2024, Expires: Start: 12-01-2023 Patient referral [facility] Work Phone: Start: 2023 Prostate specific antigen measurement Prostate Cancer Screening Discussion [facility] Start: 05-16-2023 [facility] Start: 04-14-2023 COVID-19 Vaccine () COVID-19 Vaccine () [facility] Start: 03-21-2023 End: 03-21-2023 [facility] Start: 08-03-2022 [facility] Start: 06-01-2022 [facility] Start: 2018 Administration of varicella zoster vaccine Zoster (Shingles) Vaccine (1 of 2) [facility] Start: 2018 Shingrix Vaccine (1 of 2) Shingrix Vaccine (1 of 2) [facility] Start: 2013 Prostate specific antigen measurement Prostate Cancer Screening Discussion [facility] Start: 2013 Screening for malignant neoplasm of colon [facility] Start: 11-12-2012 Medicare Annual Wellness Visit Medicare Annual Wellness Visit [facility] Start: 1987 DTaP,Tdap and Td Vaccines (1 - Tdap) DTaP,Tdap and Td Vaccines (1 - Tdap) [facility] Start: 1987 Hepatitis B Vaccine (1 of 3 - 19+ 3-dose series) Hepatitis B Vaccine (1 of 3 - 19+ 3-dose series) [facility] Start: 1987 Pneumococcal Vaccine: 50+ (1 of 2 - PCV) Pneumococcal Vaccine: 50+ (1 of 2 - PCV) [facility] Start: 1987 Urine microalbumin profile DTaP,Tdap,Td Vaccine (1 - Tdap) [facility] Start: 1986 Adult BMI Follow Up Plan Adult BMI Follow Up Plan [facility] Start: 1986 Annual PCP Team Chronic Disease Visit Annual PCP Team Chronic Disease Visit [facility] Start: 1986 Anxiety Screening Anxiety Screening [facility] Start: 1986 BP Controlled (<130/80) BP Controlled (<130/80) [facility] Start: 1986 Depression Screening Depression Screening [facility] Start: 1986 Diabetic foot examination Diabetic Foot Exam [facility] Start: 1986 Hepatitis B surface antibody level LDL Cholesterol [facility] Start: 1986 HIV screening HIV Screening [facility] Start: 1980 Depression Screening Depression Screening [facility] Start: 1978 Diabetic foot examination Diabetic Foot Exam [facility] Start: 1978 Glaucoma screening Dilated Retinal Exam [facility] Start: 1978 Hepatitis B screening Urine Albumin:Creatinine Ratio [facility] Start: 1968 Glaucoma screening Diabetic Ophthalmology Exam [facility] [email or web address] Start: 1968 Medicare Annual Wellness (AWV) Medicare Annual Wellness (AWV) [facility] Start: 1968 Screening for malignant neoplasm of colon [facility] Start: 1968 Tobacco Counseling Tobacco Counseling [facility] [employer] [facility] Start: 1968 Urine screening for protein Urine Microalbumin [employer] End: 02-04-2024 Basic metabolic 2000 panel - Serum or Plasma Basic Metabolic Panel Lab Routine Lab max of 3 days, Daily, for lab use only for 3 Days starting 02/02/2024 until 02/04/2024, 2 completed [employer] Comment on above: Lab max of 3 days, Daily, for lab use on ly for 3 Days starting 02/02/2024 until 02/04/2024, 2 completed Bedside Glucose *Place/Obtain serum glucose if >500(>600 MRH) per glucometer. Bedside Glucose *Place/Obtain serum glucose if >500(>600 MRH) per glucometer. Point of Care Testing Routine 4X Daily (AC and at bedtime) until discontinued starting 01/29/2024, 15 completed [employer] Comment on above: 4X Daily (AC and at bedtime) until disco ntinued starting 01/29/2024, 15 completed Bedside Glucose *Place/Obtain serum glucose if >500(>600 MRH) per glucometer. Bedside Glucose *Place/Obtain serum glucose if >500(>600 MRH) per glucometer. Point of Care Testing Routine 4X Daily (AC and at bedtime) until discontinued starting 02/03/2024 [employer] Comment on above: 4X Daily (AC and at bedtime) until disco ntinued starting 02/03/2024 End: 02-04-2024 CBC W Auto Differential panel - Blood CBC auto differential Lab Routine Lab max of 3 days, Daily, for lab use only for 3 Days starting 02/02/2024 until 02/04/2024, 2 completed [facility] Work Phone: Comment on above: Lab max of 3 days, Daily, for lab use on ly for 3 Days starting 02/02/2024 until 02/04/2024, 2 completed Comprehensive metabo lic 2000 panel - Serum or Plasma [facility] End: 07-18-2025 EMG With NCV EMG With NCV Neurology Routine Left cervical radiculopathy Bilateral hand pain Bilateral hand numbness Cervical spondylosis 1 Occurrences starting 07/18/2024 until 07/18/2025 [employer] Comment on above: 1 Occurrences starting 07/18/2024 until 07/18/2025 End: 01-13-2026 EMG(NEURO/NI) EMG(NEURO/NI) EMG Routine Radiculopathy, lumbar region History of total right hip replacement H/O lumbar discectomy 1 Occurrences starting 01/13/2025 until 01/13/2026 [facility] Work Phone: Comment on above: 1 Occurrences starting 01/13/2025 until 01/13/2026 Hepatitis C virus Ig G Ab [Presence] in Serum or Plasma by Immunoassay [facility] Inject si joint arthrgrphy&/anes/steroid w/margo INJECTION BLOCK SACROILIAC JOINT Disorder of sacrum [place] [facility] Njx anes&/strd w/img tfrml edrl lmbr/sac 1 lvl INJECTION(S) STEROID TRANSFORAMINAL EPIDURAL LUMBAR W/IMAGE GUIDANCE FLUORO OR CT Radiculopathy, lumbar region [facility] Oxygen Therapy - Kendra ntain SpO2: 90%; *VALUE ADVISOR Guidelines for O2: Yes; Document: \[email or web address]\epic \EPIC_Reference\Orders\Re spiratory Care Guidelines\CPG Oxygen 2022.pdf Oxygen Therapy - Maintain SpO2: 90%; *VALUE ADVISOR Guidelines for O2: Yes; Document: \[email or web address]\epi c\EPIC_Reference\Orders\ Respiratory Care Guidelines\CPG Oxygen 2022.pdf Respiratory Care Routine As Needed until discontinued starting 01/29/2024 [facility] Work Phone: Comment on above: As Needed until discontinued starting Oxygen Therapy - Kendra ntain SpO2: 90%; *VALUE ADVISOR Guidelines for O2: Yes; Document: \[email or web address]\epic \EPIC_Reference\Orders\Re spiratory Care Guidelines\CPG Oxygen 2022.pdf Oxygen Therapy - Maintain SpO2: 90%; *VALUE ADVISOR Guidelines for O2: Yes; Document: \[email or web address]\epi c\EPIC_Reference\Orders\ Respiratory Care Guidelines\CPG Oxygen 2022.pdf Respiratory Care Routine As Needed until discontinued starting 01/30/2024 [employer] Work Phone: Comment on above: As Needed until discontinued starting Patient Education [facility] Work Phone: Patient referral [facility] Work Phone: End: 12-04-2025 Prostatic specific antigen, diagnostic Prostatic specific antigen, diagnostic Lab Routine Benign prostatic hyperplasia, unspecified whether lower urinary tract symptoms present 1 Occurrences starting 12/04/2024 until 12/04/2025 [facility] Work Phone: Comment on above: 1 Occurrences starting 12/04/2024 until 12/04/2025 End: 01-29-2024 Type and screen(includes indirect yolanda) Type and screen(includes indirect yolanda) Blood Bank Routine Once for 1 Occurrences starting 01/29/2024 until 01/29/2024 [facility] Comment on above: Once for 1 Occurrences starting 01/29/20 until 01/29/2024 US Abdomen limited [facility] US.doppler Lower extremity vein - right Vas venous duplex lwr single right Vascular Ultrasound STAT Localized swelling of right lower extremity 02/22/2024 2:44 PM EDT [facility] Immunizations Immunization Date Immunization Notes Care Provider Eros jama NEGATED: Highlighted row has not occurred!04-25-2018 influenza, injectable, quadrivalent, preservative free Martha Faulkner APRN.[employer] Work Phone: [facility] Comment on above: Deferred: Patient Re fused - wants to wait Payers Date Payer Category Payer Self-pay [id number] 2017 Medicaid [id number] 2017 Unknown [id number] 2012 Medicare [id number] 2012 Medicare [id number] 1968 Unknown [id number] 2.16.84 0.1.364051.3.579.2.593 1968 Unknown [id number] 2.16.8 40.1.302475.3.579.2.128 1968 Unknown [id number] 2.16.8 40.1.413132.3.579.2.1285 1968 Unknown [id number] 2.16.8 40.1.405469.3.579.2.1285 1968 Unknown [id number] 2.16.8 40.1.343091.3.579.2.1285 1968 Unknown [id number] 2.16.8 40.1.804457.3.579.2.1285 1968 Unknown [id number] 2.16.8 40.1.220767.3.579.2.6 1968 Unknown [id number] 2.16.8 40.1.799617.3.579.2.1285 1968 Unknown [id number] 2.16.8 40.1.544676.3.579.2.1285 1968 Unknown [id number] 2.16.8 40.1.806847.3.579.2.1285 1968 Unknown [id number] 2.16.8 40.1.728290.3.579.2.1285 1968 Unknown [id number] 2.16.8 40.1.674919.3.579.2.1285 1968 Unknown [id number] 2.16.8 40.1.457147.3.579.2.1285 1968 Unknown [id number] 2.16.8 40.1.991078.3.579.2.1285 1968 Unknown [id number] 2.16.8 40.1.083725.3.579.2.1285 1968 Unknown [id number] 2.16.8 40.1.280164.3.579.2.1285 1968 Unknown [id number] 2.16.8 40.1.040366.3.579.2.1285 1968 Unknown [id number] 2.16.8 40.1.593642.3.579.2.1285 1968 Unknown [id number] 2.16.8 40.1.392201.3.579.2.1285 1968 Unknown [id number] 2.16.8 40.1.485052.3.579.2.1285 1968 Unknown [id number] 2.16.8 40.1.348837.3.579.2.1285 1968 Unknown [id number] 2.16.8 40.1.637151.3.579.2.1285 1968 Unknown [id number] 2.16.8 40.1.862645.3.579.2.1285 1968 Unknown [id number] 2.16.8 40.1.489077.3.579.2.1285 1968 Unknown [id number] 2.16.8 40.1.364876.3.579.2.1285 1968 Unknown [id number] 2.16.8 40.1.136911.3.579.2.1285 1968 Unknown [id number] 2.16.8 40.1.322328.3.579.2.1285 1968 Unknown [id number] 2.16.84 0.1.086631.3.579.2.1258 1968 Unknown [id number] 2.16.84 0.1.877577.3.579.2.1259 1968 Unknown [id number] 2.16.84 0.1.459516.3.579.2.1259 1968 Unknown [id number] 2.16.84 0.1.278300.3.579.2.1259 1968 Unknown [id number] 2.16.84 0.1.821590.3.579.2.1259 1968 Unknown [id number] 2.16. 840.1.572837.3.579.2.196 1968 Unknown [id number] 2.16. 840.1.238828.3.579.2.196 1968 Unknown [id number] 2.16. 840.1.095448.3.579.2.1285 1968 Unknown [id number] 2.16. 840.1.920575.3.579.2.1285 1968 Unknown [id number] 2.16.8 40.1.553709.3.579.2.1285 1968 Unknown [id number] 2.16.8 40.1.392706.3.579.2.1285 1968 Unknown [id number] 2.16. 840.1.303610.3.579.2.1285 1968 Unknown [id number] 2.16. 840.1.348443.3.579.2.1285 1968 Unknown [id number] 2.16. 840.1.533640.3.579.2.128 1968 Unknown [id number] 2.16. 840.1.858797.3.579.2.1285 1968 Unknown [id number] 2.16. 840.1.203537.3.579.2.1285 1968 Unknown [id number] 2.16. 840.1.944968.3.579.2.1285 1968 Unknown [id number] 2.16.8 40.1.105833.3.579.2.1286 1968 Unknown [id number] 2.16.8 40.1.015930.3.579.2.1285 1968 Unknown [id number] 2.16.8 40.1.686930.3.579.2.1285 1968 Unknown [id number] 2.16.8 40.1.498774.3.579.2.1285 1968 Unknown [id number] 2.16.8 40.1.341967.3.579.2.1285 1968 Unknown [id number] 2.16.8 40.1.366580.3.579.2.1285 1968 Unknown [id number] 2.16.8 40.1.826142.3.579.2.1285 1968 Unknown [id number] 2.16.8 40.1.203442.3.579.2.1286 1959 Medicare [id number] Unknown [id number] Unknown [id number] 2.16.8 40.1.302329.3.579.2.531 Unknown [id number] 2.16.8 40.1.322781.3.579.2.531 Unknown [id number] 2.16.8 40.1.381939.3.579.2.531 Social History Date Type Detail Facility Start: 10-14-2020 End: 02-21-2025 Tobacco smoking status SDIS Ex-smoker (finding) [facility] Start: 1970 Sex Assigned At Male [facility] Start: 01-09-2024 End: 11-22-2024 Sex Assigned At [facility] Start: 10-30-2020 End: 03-21-2023 Tobacco smoking status SDIS Current some day smoker [facility] Start: 11-01-2023 End: 02-28-2024 Tobacco smoking status SDIS Smoker (finding) [facility] Start: 12-06-1989 End: 01-15-2025 Tobacco smoking status NHIS Smokes tobacco daily [facility] Start: 12-06-1989 End: 08-21-2014 History of tobacco use Cigarette Smoker [facility] Start: 12-12-2023 End: 02-21-2025 Tobacco use and exposure Smokeless tobacco non-user [facility] Start: 01-09-2024 End: 01-29-2025 Alcoholic beverage intake Ex-drinker (finding) [facility] Start: 01-09-2024 End: 11-22-2024 History of Social function [facility] Start: 08-11-2021 Gender identity Identifies as male gender (finding) [facility] Start: 08-11-2021 Sexual orientation Heterosexual (fin debbie) [facility] Has the [employer], or water [employer] threatened to shut off services in your home in past 12Mo No [facility] Are you now , , , , never or living with a partner? Never [facility] How often to you hav e a drink containing alcohol? Never [facility] How many standard drinks containing alcohol do you have on a typical day? Patient does not drink [facility] Do you feel stress - tense, restless, nervous, or anxious, or unable to sleep at night because your mind is troubled all the time - these days [OSQ] To some extent [facility] Start: 08-09-2016 End: 12-13-2024 Sex Male (finding) [facility] Start: 01-17-2024 End: 02-21-2025 Alcoholic beverage intake Current non-drinker of alcohol (finding) [facility] Are you now , , , , never or living with a partner? [facility] Do you feel stress - tense, restless, nervous, or anxious, or unable to sleep at night because your mind is troubled all the time - these days [OSQ] Not at all [facility] Medical Equipment Procedure Code Equipment Code Equipment Origin al Text Equipment Identifier Dates Repair, hernia, inguinal, with mesh [facility] Start: 06-14-2019 Repair, hernia, inguinal, with mesh [id number] FDA Start: 06-14-2019 Repair, hernia, inguinal, with mesh [id number] FDA Start: 06-14-2019 Repair, hernia, inguinal, with mesh [id number] FDA Start: 06-14-2019 Repair, hernia, inguinal, with mesh [id number] FDA Start: 06-14-2019 Repair, hernia, inguinal, with mesh [id number] FDA Start: 06-14-2019 Repair, hernia, inguinal, with mesh [id number] FDA Start: 06-14-2019 Repair, hernia, inguinal, with mesh [id number] FDA Start: 06-14-2019 Repair, hernia, inguinal, with mesh [id number] FDA Start: 06-14-2019 Repair, hernia, inguinal, with mesh [id number] FDA Start: 06-14-2019 Repair, hernia, inguinal, with mesh [id number] FDA Start: 06-14-2019 Repair, hernia, inguinal, with mesh [id number] FDA Start: 06-14-2019 Repair, hernia, inguinal, with mesh [id number] FDA Start: 06-14-2019 Repair, hernia, inguinal, with mesh [id number] FDA Start: 06-14-2019 Repair, hernia, inguinal, with mesh [id number] FDA Start: 06-14-2019 Repair, hernia, inguinal, with mesh [id number] FDA Start: 06-14-2019 Abdominal hernia surgical mesh, composite-polymer [id number] FDA Start: 05-13-2019 [id number] Start: 09-14-2018 Cable Orth Lcp 7 50mm Ss 1.7mm Crmp Ns - [id number] Start: 01-30-2024 Mesh [id number] Pp Pcl Macroporous Parietene Ds 2.4mm Comp Abs Rpl [id number] - [id number] - [id number] Start: 10-27-2021 Nail Im 170mm 12 mm 125d Cnn Tfn-Adv Lat Rlf Cut Ti Niobium - [id number] Start: 01-18-2024 Nail Im 440mm 12 mm 125d Cnn Tfn-Adv Lat Rlf Cut Ti Niobium - [id number] Start: 01-30-2024 Screw Bn 95mm 10 .35mm Cnn Ti Al Niobium Tfn-Adv 3.5mm Strl - [id number] Start: 01-18-2024 Screw Bn 38mm 5m m Lck X25 Im Nl - [id number] Start: 01-18-2024 Screw Bn 95mm 10 .35mm Cnn Ti Al Niobium Tfn-Adv 3.5mm Strl - [id number] Start: 01-30-2024 Screw Bn 58mm 5m m Lck X25 Im Nl - [id number] Start: 01-30-2024 Screw Bn 44mm 5m m Lck X25 Im Nl - [id number] Start: 01-30-2024 Goals Date Patient Goal Desired Activity /State Personal health goal Comment on above: Formatting of this n ote might be different from the original. Evaluation of progress towards goal: Participating in therapy Personal health goal Comment on above: Formatting of this n ote might be different from the original. Evaluation of progress towards goal: pt plans to return [facility] [place] Personal health goal Comment on above: Formatting [...] 04/27/2018 4:56 PM Brennen Tucker RN No [facility] 04-27-2018 Are you blind, or do you have serious difficulty seeing, even when wearing glasses No 04/27/2018 4:56 PM Brennen Tucker RN No [facility] 04-27-2018 Do you have serious difficulty walking or climbing stairs No 04/27/2018 4:56 PM EDT Brennen Ramsey, ELIAS No [facility] 04-27-2018 Do you have difficul ty dressing or bathing No 04/27/2018 4:56 PM EDT Brennen Ramsey, RN No [facility] 04-27-2018 Because of a physica l, mental, or emotional condition, do you have difficulty doing errands alone such as visiting a physician's office or shopping No 04/27/2018 4:56 PM EDT Brennen Ramsey, RN No [facility] Mental Status Date Assessment Result Facility 04-27-2018 Because of a physica l, mental, or emotional condition, do you have serious difficulty concentrating, remembering, or making decisions No 04/27/2018 4:56 PM EDT Brennen Ramsey RN No [facility] Clinical Notes 08-23-2021 to 02-21-2025 Ashley Lema LSW - 02/21/2025 3:12 PM Alistair Maurer MD - 02/21/2025 3:02 PM EDTPatient InstructionsPatient InstructionsVenneZac hurd MD - 02/20/2025 2:20 PM EDTPatient Instructions Note Date & Type Note Facility 02-21-2025 Note HNO ID: [id number] Author: ASHLEY LEMA LSW Service: ? Author Type: Auto Body Repairman Type: Progress Notes Filed: 02/21/2025 15:13 Note Text: Unable To Reach Patient Patient's name appears on the PRO T[facility]ig report for PHQ-9 score of 19. SW was unable to reach Patient for follow up. NEAL [facility] 02-21-2025 History of Presen t illness Narrative Unable To Reach Patient Patient's name appears on the PRO [facility]ig report for PHQ-9 score of 19. SW was unable to reach Patient for follow up. NEAL Chow documented in this encounter [facility] 02-21-2025 Note HNO ID: [id number] Author: ALISTAIR MCNALLY MD Service: ? Author Type: Physician Type: Progress Notes Filed: 02/21/2025 16:10 Note Text: [facility] Pain Management Department Follow-Up Evaluation Chief Complaint: Patient presents with: Pain: Low back SUBJECTIVE Ruth Smith, is a 54 year old with PAST MEDICAL HISTORY Diagnosis Date Bipolar 1 disorder (HCC) Cirrhosis (HCC) Colon cancer (HCC) Diabetes (HCC) Hypertension Splenomegaly Chief Complaint: Patient presents with: Pain: Low back . Intensity of pain: 8 on a scale of 0-10 NRS. Duration of pain: 1 Years ago. The pain is located Back-Lower. Pain Description and Timing: Continuous Aching, Burning, Cutting, Dull, Numbness, Pulsating, Radiating, Sharp, Shooting, Sore, Stabbing, Stiffness, Tenderness, Tingling Alleviating Factors: Relaxation, Aromatherapy to promote a healing environment, Cold, Distractions, Heat, Imagery, Music, Pillow support, Positioning Patient entered comments: Ruth Smith reports that his pain is worse. His function is worse. Pain score today: 8/10 = Carlo Smith is a 54-year-old male with a history of chronic lower back pain and neuropathy, presenting for worsening pain and neuropathy. Carlo reports persistent lower back pain radiating to the buttocks, right leg, calf, and occasionally the ankle. The pain has intensified, now described as an electric sensation shooting up the core with each step. He also experiences pain in the hip, knee, and calf, with severe episodes extending to the ankle. Carlo has a history of neuropathy in the lower extremities for over 7-8 years, initially starting in the outer toes and progressively affecting all toes and feet. He reports numbness in the legs when sitting, particularly on the commode, requiring 10-15 minutes to regain sensation. Carlo underwent two surgeries last year, including a discectomy, and is uncertain if the current pain is related to these procedures. He received an epidural during the last visit, which provided temporary relief for one day. He was scheduled for an EMG but postponed it due to recent colonoscopy and cystoscopy procedures. He expresses a preference for having the EMG performed at a facility closer to his residence in [place]. Carlo is currently on duloxetine 30 mg daily and has been compliant with the medication. He has also scheduled therapy sessions as previously recommended. He reports significant sleep disturbances, averaging less than 3 hours of sleep per night, and expresses frustration and emotional distress, stating he has been crying for 6 months. He denies current constipation, noting he takes medication to manage this due to a previous colonic resection. = Past Pain Management Procedures, % relief, and duration: L5 TFESI by [facility] Past and current medications: Duloxetine Cyclobenzaprine Gabapentin Trazodone = Text in 8pt font and Italicized was copied and pasted from the EHR to be considered in my evaluation of this patient today.Those areas highlighted in red are significant and specific to today's encounter. Information copied and pasted from last visit to Pain Management ASSESSMENT: The primary encounter diagnosis was Radiculopathy, lumbar region. Diagnoses of Diabetic peripheral neuropathy (HCC), Thrombocytopenia, History of total right hip replacement, H/O lumbar discectomy, and Chronic pain syndrome were also pertinent to this visit. Chronic Pain Syndrome # Radiculopathy, lumbar region (M54.16) Chronic lower back pain radiating to the right buttock, leg, calf, and ankle. Previous microdiscectomy at L5. Recent MRI shows some narrowing, but not severe. Previous epidural provided temporary relief. - Scheduled repeat epidural at [facility], and [place]. - Initiated duloxetine 30 mg PO daily. # Diabetic peripheral neuropathy (HCC) (E11.42) Neuropathic pain in the right leg. Previous EMG confirmed neuropathy. - Continue gabapentin 400 mg PO TID. - Added to waitlist for ketamine infusions. # Thrombocytopenia (D69.6) Platelet count at 135 x 109/L. Under hematology/oncology care; likely secondary to liver cirrhosis. # History of total right hip replacement (Z96.641) Previous right hip fracture and femur fracture with surgical intervention. No current issues reported. # H/O lumbar discectomy (Z98.890) Previous microdiscectomy at L5. Chronic back pain persists. # Chronic pain syndrome (G89.4) Severe chronic pain with significant impact on daily activities and quality of life. Associated with depression, anxiety, and sleep disturbances. Multiple interventions tried with limited success. - Referred to [facility] program focusing on biopsychosocial model of pain management. - Scheduled for Empowered Relief course. - Referred to pain psych (more content not included)... [facility] 02-21-2025 History of Presen t illness Narrative Images from the original note were not included. [facility] Pain Management Department Follow-Up Evaluation Chief Complaint: Patient presents with: Pain: Low back SUBJECTIVE Ruth Smith, is a 54 year old with PAST MEDICAL HISTORY Diagnosis Date Bipolar 1 disorder (HCC) Cirrhosis (HCC) Colon cancer (HCC) Diabetes (HCC) Hypertension Splenomegaly Chief Complaint: Patient presents with: Pain: Low back . Intensity of pain: 8 on a scale of 0-10 NRS. Duration of pain: 1 Years ago. The pain is located Back-Lower. Pain Description and Timing: Continuous Aching, Burning, Cutting, Dull, Numbness, Pulsating, Radiating, Sharp, Shooting, Sore, Stabbing, Stiffness, Tenderness, Tingling Alleviating Factors: Relaxation, Aromatherapy to promote a healing environment, Cold, Distractions, Heat, Imagery, Music, Pillow support, Positioning Patient entered comments: Ruth Smith reports that his pain is worse. His function is worse. Pain score today: 8/10 = Carlo Smith is a 54-year-old male with a history of chronic lower back pain and neuropathy, presenting for worsening pain and neuropathy. Carlo reports persistent lower back pain radiating to the buttocks, right leg, calf, and occasionally the ankle. The pain has intensified, now described as an electric sensation shooting up the core with each step. He also experiences pain in the hip, knee, and calf, with severe episodes extending to the ankle. Carlo has a history of neuropathy in the lower extremities for over 7-8 years, initially starting in the outer toes and progressively affecting all toes and feet. He reports numbness in the legs when sitting, particularly on the commode, requiring 10-15 minutes to regain sensation. Carlo underwent two surgeries last year, including a discectomy, and is uncertain if the current pain is related to these procedures. He received an epidural during the last visit, which provided temporary relief for one day. He was scheduled for an EMG but postponed it due to recent colonoscopy and cystoscopy procedures. He expresses a preference for having the EMG performed at a facility closer to his residence in [place]. Carlo is currently on duloxetine 30 mg daily and has been compliant with the medication. He has also scheduled therapy sessions as previously recommended. He reports significant sleep disturbances, averaging less than 3 hours of sleep per night, and expresses frustration and emotional distress, stating he has been crying for 6 months. He denies current constipation, noting he takes medication to manage this due to a previous colonic resection. = Past Pain Management Procedures, % relief, and duration: L5 TFESI by Braydon Past and current medications: Duloxetine Cyclobenzaprine Gabapentin Trazodone = Text in 8pt font and Italicized was copied and pasted from the EHR to be considered in my evaluation of this patient today.Those areas highlighted in red are significant and specific to today's encounter. Information copied and pasted from last visit to Pain Management ASSESSMENT: The primary encounter diagnosis was Radiculopathy, lumbar region. Diagnoses of Diabetic peripheral neuropathy (HCC), Thrombocytopenia, History of total right hip replacement, H/O lumbar discectomy, and Chronic pain syndrome were also pertinent to this visit. Chronic Pain Syndrome # Radiculopathy, lumbar region (M54.16) Chronic lower back pain radiating to the right buttock, leg, calf, and ankle. Previous microdiscectomy at L5. Recent MRI shows some narrowing, but not severe. Previous epidural provided temporary relief. - Scheduled repeat epidural at [facility], [address]. - Initiated duloxetine 30 mg PO daily. # Diabetic peripheral neuropathy (HCC) (E11.42) Neuropathic pain in the right leg. Previous EMG confirmed neuropathy. - Continue gabapentin 400 mg PO TID. - Added to waitlist for ketamine infusions. # Thrombocytopenia (D69.6) Platelet count at 135 x 10^9/L. Under hematology/oncology care; likely secondary to liver cirrhosis. # History of total right hip replacement (Z96.641) Previous right hip fracture and femur fracture with surgical intervention. No current issues reported. # H/O lumbar discectomy (Z98.890) Previous microdiscectomy at L5. Chronic back pain persists. # Chronic pain syndrome (G89.4) Severe chronic pain with significant impact on daily activities and quality of life. Associated with depression, anxiety, and sleep disturbances. Multiple interventions tried with limited success. - Referred to [facility] on [facility] program focusing on biopsychosocial model of pain management. - Scheduled for Empowered Relief course. - Referred to pain psychologist for virtual sessions. - Discussed potential benefits of chiropractic and massage therapy. PLAN: Further evaluation: None Nutrition: in future Therapies: Back on TREK/empowered relief Sleep: in future Worklessness: Yes Medications: Duloxetine 30mg daily Interventions: R L5 TFESI ordered today Infusions: ketamine 9. Pain Psychology: Yes New or Pertinent Imaging Objective February 21, 2025 Past imaging reviewed includes: Reports listed here were copied and pasted directly into the note by myself after review of the complete report and/or the images. Those areas highlighted in red are significant to today's encounter. Physical Examination Vitals: BP 146/91 Pulse 98 Resp 16 General: Well appearing, alert, in no acute distress, well-hydrated, well nourished. Mental Status: Alert and Oriented x3. Speech is normal. Affect: happy Skin: Skin color, texture, turgor normal, no suspicious rashes or lesions HEENT: Pupils equal, round, reactive to light. Not pinpoint. Pulmonary: Breathing easily without tachypnea or bradypnea. Cardiac: No LE edema. Abdomen: soft, not distended Ambulation: Gait is normal. . Neuro/Musculoskeletal: Cervical Spine: Shoulder: Upper Extremity: Thoracic Spine: Lumbar Spine: Sacroiliac Joint: Lower Extremity: Patient denies any red flag symptoms such as bowel/bladder dysfunction or sudden weakness. Assessment & Plan Assessment & Plan 02/21/2025 Diagnoses of Radiculopathy, lumbar region, Diabetic peripheral neuropathy (HCC), Thrombocytopenia, History of total right hip replacement, H/O lumbar discectomy, and Polyneuropathy were pertinent to this visit. # Radiculopathy, lumbar region (M54.16) Persistent lower back pain radiating to the buttock, right leg, calf, and ankle. Pain described as electric shock-like, exacerbated by movement. Previous epidural provided temporary relief. EMG not yet performed. - Increase duloxetine to 60 mg daily. - Obtain EMG at [facility]. - Follow-up in 4 weeks, virtual appointment scheduled. # Diabetic peripheral neuropathy (HCC) (E11.42) Chronic neuropathy in feet, progressing over 7-8 years. Numbness in legs when sitting, requiring time to regain sensation. - Discuss potential spinal cord stimulator after EMG results. # Thrombocytopenia (D69.6) Chronic low platelet counts over the past two years, recent labs show improvement. # History of total right hip replacement (Z96.641) Previous right hip replacement with residual pain in the hip area. # H/O lumbar discectomy (Z98.890) Previous lumbar discectomy, potential contributor to current radiculopathy. # Polyneuropathy (G62.9) Chronic polyneuropathy with extensive nerve involvement in lower extremities. = = Alistair Mcnally MD Electronic signature This office note has been dictated and may contain minor typographic errors that escaped review. Parts of this note may have been input by my emergency medical technician, resident, fellow, nurse, or nurse practitioner and have been independently verified or corrected as indicated by myself. Relevant History from the Electronic Medical Record Possible Red Flag Ruth Smith has no red flag symptoms. Questionnaires: Descriptive Summary for PROMIS Physical Function T-score = 27 (Percentile 1) Unable - Do chores such as vacuuming or yard work. Much difficulty - Run errands and shop. Much difficulty - Walk about the house. Patient Entered Questionnaires PROMIS Score Percentiles 11/18/2024 01/13/2025 02/20/2025 Physical Health Physical Function Percentile 2 2 1 Pain Interference Percentile 1 1 1 11/18/2024 02/18/2025 PROMIS Global Health Scale Physical Health Percentile 1 0 Mental Health Percentile 1 2 Patient-reported Percentiles provide an indication of how the patient's score ranks in relation to the general population. Higher percentile rankings indicate better function/quality of life. 50th percentile is the average of the general population and indicates half of respondents had a worse score. Depression Screenin02/18/2025 PHQ-9 Score 19 02/18/2025 PHQ-9 Self Harm Question 9 Not at all PHQ-9 Self-Harm (Item 9) response options: 0 Not at all 1 Several days 2 More than half the days 3 Nearly every day PHQ-9 Levels: 0-4 Minimal depression 5-9 Mild depression 10-14 Moderate depression 15-19 Moderately severe depression 20-27 Severe depression PHQ-9 Score 02/18/2025 19 (0-4) minimal depression, (5-9) mild depression, (10-14) moderate depression, (15-19) moderately severe depression, (20-27) severe depression No data to display ALLERGIES Allergen Reactions Clindamycin Other: See Comments Insulin Glargine GI Upset basaglar Current Medications: DULoxetine (CYMBALTA) 30 mg capsule Take 2 capsules by mouth once daily. hyoscyamine (LEVSIN) 0.125 mg tablet Take 0.125 [...] Take 40 mg by mouth once daily. PAST MEDICAL HISTORY Diagnosis Date Bipolar 1 disorder (HCC) Cirrhosis (HCC) Colon cancer (HCC) Diabetes (HCC) Hypertension Splenomegaly PAST SURGICAL HISTORY Procedure Laterality Date BACK SURGERY HX Lumbar L5 COLONOSCOPY 02/22/2018 EGD 02/22/2018 PAST SURGICAL HISTORY OF left foot surgery PAST SURGICAL HISTORY OF back injections He reports that he quit smoking about 14 years ago. His smoking use included cigarettes. He has never used smokeless tobacco. He reports that he does not drink alcohol and does not use drugs. Medical Decision Making Notes and tests identified as copied and pasted above were directly placed into the frame of this note and are pertinent to my medical decision making. documented in this encounter [facility] 02-21-2025 Instructions Alistair Mcnally MD - 02/21/2025 2:35 PM EDT We discussed your ongoing lower back pain and associated symptoms: - Your pain starts in the lower back and radiates to the buttock, hip, knee, calf, and occasionally the outside of your ankle. You also experience numbness in your legs and feet due to neuropathy. - I recommend you complete the EMG (electromyography) test to evaluate whether nerve damage is contributing to your symptoms. I will send the order to [facility], as requested. - I increased your duloxetine dosage to 60 mg daily to help manage your pain. Please take this as prescribed. If it does not help, we will discontinue it. - We discussed avoiding opioids for pain management due to their long-term risks, including tolerance and worsening pain. Duloxetine is the preferred option at this time. - You have already scheduled the Back on Track and Empowered Relief courses. Please attend these as planned, as they may provide additional support for managing your pain. We discussed next steps for your care: - Once the EMG results are available, we may consider additional treatment options, such as a spinal cord stimulator, to help with your neuropathy and pain. - I recommend a follow-up appointment in 4 weeks to assess your progress. This can be done virtually if you prefer. We discussed your emotional well-being: - I understand the frustration and stress you are experiencing. I encourage you to meet with Beatrice Ramirez, who can help you manage the emotional challenges that come with chronic pain. Reducing stress may also help improve your pain levels. Please continue to monitor your symptoms and let me know if there are any changes or concerns. documented in this encounter [facility] 02-20-2025 Instructions Zac Crouch MD - 02/20/2025 3:01 PM EDT Blood work today F/u in 6 months documented in this encounter [facility] 02-20-2025 History of Presen t illness Narrative PATIENT NAME: Ruth Smith CLINIC NO.: [id number] ATTENDING PHYSICIAN: Zac Crouch MD DATE OF SERVICE: November 28, [address] Abrahan Rinaldi [id number] [facility] [address] thank you for referring Ruth Smith for an opinion regarding Thrombocytoopenia. Some of the elements of this note have been copied from my previous progress note dated 11/28/24 . All the information has been reviewed carefully. CHIEF COMPLAINT: Thrombocytopenia HPI: Ruth Smith is a 54 year old year old male with PMH of liver cirrhosis from Hep C (treated), colon cancer s/p surgery in 2018, chronic back pain, HTN, IBS, DM referred to us for thrombocytopenia. Smokes half pack daily Quit alcohol many yrs ago. On disability. C/o back pain. No other complaints. 02/20/25: - Doing well - No major complaints. - Had colonoscopy 1 month ago. Normal. - Had epidural steroid injection in December 2024 Current Outpatient Medications Medication Sig DULoxetine (CYMBALTA) 30 mg capsule Take 1 capsule by mouth once daily. hyoscyamine (LEVSIN) 0.125 mg tablet Take 0.125 [...] Take 50 mg by mouth once daily. traZODone (DESYREL) 50 mg tablet Take 50 mg by mouth daily at bedtime. linagliptin-metFORMIN (JENTADUETO) 2.5-1,000 mg tab Take by mouth. hydroCHLOROthiazide (HYDRODIURIL, ESIDRIX) 25 mg tablet Take 25 mg by mouth once daily. Fenofibrate (LOFIBRA) 160 mg tablet Take 160 mg by mouth once daily. citalopram (CELEXA) 40 mg tablet Take 40 mg by mouth once daily. tamsulosin ER (FLOMAX) 0.4 mg cap Take 1 capsule by mouth once daily. No current facility-administered medications for this visit. [...] Types: Cigarettes Quit date: 2010 Years since quittin.5 Smokeless tobacco: Never Substance Use Topics Alcohol [...] of hands/feet. No weakness. PHYSICAL EXAMINATION: BP 120/82 Pulse 91 Temp 36.4 C (97.6 F) (Temporal) Resp 16 Ht 185.4 cm (6' 0.99 ) Wt 108.2 kg (238 lb 8.6 oz) SpO2 100% BMI 31.48 kg/m There were no vitals taken for [...] : Deferred LABS: Glucose (mg/dL) Date Value 11/28/2024 150 08/27/2018 249 Potassium (mmol/L) Date Value 11/28/2024 4.2 08/27/2018 3.4 Sodium (mmol/L) Date Value 11/28/2024 138 08/27/2018 134 Chloride (mmol/L) Date Value 11/28/2024 101 08/27/2018 95 CO2 (mmol/L) Date Value 11/28/2024 23 08/27/2018 30 Creatinine (mg/dL) Date Value 11/28/2024 0.77 08/27/2018 0.74 BUN (mg/dL) Date Value 11/28/2024 10 08/27/2018 11 Anion Gap (mmol/L) Date Value 11/28/2024 14 08/27/2018 9 Calcium (mg/dL) Date Value 08/27/2018 9.5 Calcium, Total (mg/dL) Date Value 11/28/2024 10.3 Protein, Total (g/dL) Date Value 11/28/2024 7.6 06/05/2019 7.5 Albumin (g/dL) Date Value 11/28/2024 4.8 06/05/2019 4.4 Bilirubin, Total (mg/dL) Date Value 11/28/2024 0.6 06/05/2019 0.5 Alkaline Phosphatase (U/L) Date Value 11/28/2024 80 06/05/2019 62 AST (U/L) Date Value 11/28/2024 14 06/05/2019 17 ALT (U/L) Date Value 11/28/2024 7 06/05/2019 6 WBC Date Value Ref Range [...] Range Status 11/28/2024 6.0 % Final Abs [place] Date Value Ref Range Status 11/28/2024 0.52 [...] 2018, chronic back pain, HTN, IBS, DM He has chronic mild thrombocytopenia since 2018. - Thrombocytopenia likely secondary to liver cirrhosis. - Monitor the thrombocytopenia for now. CBC today showed platelets of 135k. - CT abdomen pelvis on 11/12/2024 showed morphological changes of the liver compatible with liver cirrhosis and splenomegaly with underlying portal hypertension. PLAN: 1. Thrombocytopenia - ICD9: 287.5, ICD10: D69.6 (primary diagnosis) 2. Malignant neoplasm of colon, unspecified part of colon (HCC) - ICD9: 153.9, ICD10: C18.9 3. Elevated carcinoembryonic antigen (CEA) - ICD9: 795.81, ICD10: R97.0 - Doing well. - CBC today showed normal blood counts. - Mildly elevated CEA levels. Had colonoscopy 1 month ago. Normal. - CT A/P on 11/12/24 showed no evidence of malignancy. - F/u with PCP, GI and other consultants. - All his questions answered in detail - Follow-up in [address] Abrahan Rinaldi [phone] [facility] [address] thank you for allowing me to participate in Ruth Smith care, if there are any questions or concerns please do not hesitate to contact me at the number below. I spent a total of 20 minutes on the date of the service which included preparing to see the patient, [id number] patient care, completing clinical documentation, obtaining and/or reviewing separately obtained history, performing a medically appropriate examination, counseling and educating the patient/family/caregiver, ordering medications, tests, or procedures, communicating with other HCPs (not separately reported), independently interpreting results (not separately reported), communicating results to the patient/family/caregiver, and care coordination (not separately reported). Zac Crouch MD. Hematology/Medical Oncology [facility] [phone] CC: documented in this encounter [facility] 02-20-2025 Note HNO ID: [id number] Author: ZAC CROUCH MD Service: ? Author Type: Physician Type: Progress Notes Filed: 02/20/2025 16:15 Note Text: PATIENT NAME: Ruth Smith CLINIC NO.: [id number] ATTENDING PHYSICIAN: Zac Crouch MD DATE OF SERVICE: November 28, [address] Abrahan Rinaldi [id number] [facility] [address] thank you for referring Ruth Smith for an opinion regarding Thrombocytoopenia. Some of the elements of this note have been copied from my previous progress note dated 11/28/24 . All the information has been reviewed carefully. CHIEF COMPLAINT: Thrombocytopenia HPI: Ruth Smith is a 54 year old year old male with PMH of liver cirrhosis from Hep C (treated), colon cancer s/p surgery in 2018, chronic back pain, HTN, IBS, DM referred to us for thrombocytopenia. Smokes half pack daily Quit alcohol many yrs ago. On disability. C/o back pain. No other complaints. 02/20/25: - Doing well - No major complaints. - Had colonoscopy 1 month ago. Normal. - Had epidural steroid injection in December 2024 Current Outpatient Medications Medication Sig DULoxetine (CYMBALTA) 30 mg capsule Take 1 capsule by mouth once daily. hyoscyamine (LEVSIN) 0.125 mg tablet Take 0.125 [...] Take 50 mg by mouth once daily. traZODone (DESYREL) 50 mg tablet Take 50 mg by mouth daily at bedtime. linagliptin-metFORMIN (JENTADUETO) 2.5-1,000 mg tab Take by mouth. hydroCHLOROthiazide (HYDRODIURIL, ESIDRIX) 25 mg tablet Take 25 mg by mouth once daily. Fenofibrate (LOFIBRA) 160 mg tablet Take 160 mg by mouth once daily. citalopram (CELEXA) 40 mg tablet Take 40 mg by mouth once daily. tamsulosin ER (FLOMAX) 0.4 mg cap Take 1 capsule by mouth once daily. No current facility-administered medications for this visit. [...] Types: Cigarettes Quit date: 2010 Years since quittin.5 Smokeless tobacco: Never Substance Use Topics Alcohol [...] of hands/feet. No weakness. PHYSICAL EXAMINATION: BP 120/82 Pulse 91 Temp 36.4 ?C (97.6 ?F) (Temporal) Resp 16 Ht 185.4 cm (6' 0.99 ) Wt 108.2 kg (238 lb 8.6 oz) SpO2 100% BMI 31.48 kg/m? There were no vitals taken for this visit. Last 3 Encounter Wt Readings: Date: Wt: 11/22/2024 102.1 kg (225 lb) 06/10/2019 114.3 kg (252 lb) 05/28/2018 120.7 kg (266 lb) General appearance:ECOG PERFORMANCE STATUS: 1- Restricted in physically strenuous activity. Carries out light duty. Patient in NAD. Skin: Skin color, texture, turgor normal. No rashes or lesions. Eyes: Anicteric s (more content not included)... [facility] 01-29-2025 Miscellaneous Notes Return the office 4-6 weeks documented in this encounter [employer] 01-29-2025 Telephone encounter Note Return the office 4-6 weeks [employer] Work Phone: 01-15-2025 Instructions Ne Vega RN - 01/15/2025 1:30 PM EDT Preoperative Education Checklist- General Surgery date: 01/29/25 Surgery time: 830a Arrival time: 630a 1. Bring a photo ID and your insurance card with you the day of surgery. You will check in at the main lobby of the [facility]- registration desk is straight ahead as soon as you walk in. Tell them you are here for surgery. 2. If you have a Living Will/Durable Power of Establishment Guide for Health Care that is not on file here, please bring a copy the day of surgery. 3. Please shower/bathe the night before surgery with the provided soap or wipes. Do not shower the morning of surgery- you will do use wipes when you arrive here at the hospital before getting into your surgical gown. Do not shave the area of your procedure for 2 days prior to your surgery. 4. NO powder, lotion, perfume/cologne, aftershave, make-up, deodorant, or hair products after you have bathed. 5. NO nail colombian/acrylic on at least one finger. If you are having a hand, wrist or foot surgery then all nail colombian and artificial/acrylic nails must be removed from that hand or foot. 6. Avoid ALL Aspirin and non-steroidal anti-inflammatory drugs and certain vitamins (Ibuprofen, Advil, Aleve, Excedrin, Meloxicam, Celebrex, fish/krill oil, etc.) for 7 days prior to surgery as instructed by your surgeon and/or your prescribing doctor. Tylenol IS ALLOWED. If you are on Ticlid, Xarelto, Eliquis, Pradaxa, Plavix or Coumadin, please check with your prescribing doctor for instructions for when to stop them. 7. If you use an inhaler, continue to use it routinely. 8. Nothing to eat or drink (not even water, gum, mints, or hard candy!) AFTER midnight prior to your surgery. 9. Take only medications that you are instructed to on the morning of surgery with a TINY SIP OF WATER. 10. Choose a responsible adult that will be able to drive you home when you are discharged from your hospital stay for your surgery and can stay with you in your home for 24 hours after your procedure. You must NOT drive any vehicle or operate any machinery for 24 hours after surgery. 11. When you dress for your appointment, please wear loose fitting clothing that is appropriate to accommodate your surgical area procedure. BRING WITH YOU ANY DEVICES YOU MAY NEED: JOSELUIS hose, ice machine, sling/swath, brace or special shoe, oversized zip-up or button up shirt, CPAP machine if staying overnight. 12. Do NOT wear jewelry, watches, or any piercings or metal for surgery- leave these valuables and money at home. 13. Do NOT wear contact lenses for surgery- glasses are okay if needed. 14. The anesthesiologist will talk with you the day of surgery and will ask you to sign a Consent Form. 15. Refrain from smoking or any type of tobacco use for at least 8 hours and marijuana for 24 hours prior to arrival for your surgery. 16. Notify your surgeon if you develop any illness before your surgery. 17. If you are staying overnight, please DO NOT BRING your home medications with you. 18. If you have any questions prior to surgery, please call the Preadmission Testing office at [phone], Mon.-Fri. 7 a.m.-3 p.m. Leave a voicemail if needed. Pre-Surgery Instructions: Medication Instructions albuterol (PROVENTIL HFA;VENTOLIN HFA) 90 mcg/actuation inhaler Take morning of procedure, as needed carvediloL (COREG) 3.125 mg tablet Continue as prescribed, take morning of procedure citalopram (CeleXA) 20 mg tablet Continue as prescribed, DO NOT take morning of procedure colestipoL (COLESTID) 1 g tablet Continue as prescribed, DO NOT take morning of procedure cyclobenzaprine (FLEXERIL) 10 mg tablet Continue as prescribed, DO NOT take morning of procedure DEXCOM G7 SENSOR device Continue as prescribed, take morning of procedure fenofibrate (LOFIBRA) 160 mg tablet Continue as prescribed, DO NOT take morning of procedure FIASP FLEXTOUCH U-100 INSULIN 100 unit/mL (3 mL) insulin pen Take half dose evening before surgery gabapentin (NEURONTIN) 300 mg capsule Continue as prescribed, DO NOT take morning of procedure hydroCHLOROthiazide (HYDRODIURIL) 25 mg tablet Continue as prescribed, DO NOT take morning of procedure hyoscyamine (ANASPAZ,LEVSIN) 0.125 mg tablet Continue as prescribed, DO NOT take morning of procedure linagliptin-metFORMIN 2.5-1,000 mg tablet Continue as prescribed, DO NOT take morning of procedure losartan (COZAAR) 50 mg tablet Continue as prescribed, take morning of procedure magnesium oxide (MAGOX) 400 mg tablet Continue as prescribed, DO NOT take morning of procedure omeprazole (PriLOSEC) 40 mg capsule Continue as prescribed, take morning of procedure ondansetron ODT (ZOFRAN ODT) 4 mg disintegrating tablet Continue as prescribed, DO NOT take morning of procedure OZEMPIC 0.25 mg or 0.5 mg (2 mg/3 mL) pen injector Stop taking 1 week prior to procedure sucralfate (CARAFATE) 1 gram tablet Continue as prescribed, DO NOT take morning of procedure tamsulosin (FLOMAX) 0.4 mg capsule Continue as prescribed, DO NOT take morning of procedure traZODone (DESYREL) 50 mg tablet Continue as prescribed, DO NOT take morning of procedure UNIFINE PENTIPS PLUS 31 gauge x 1/4 needle Continue as prescribed, take morning of procedure VIBERZI 100 mg tablet Continue as prescribed, DO NOT take morning of procedure XIFAXAN 550 mg tablet Continue as prescribed, DO NOT take morning of procedure How to Avoid an Infection after Your Surgery Your doctor will give you specific instructions, but remember: -ALWAYS wash hands before caring for your catheter and/or after using the restroom. -ALWAYS wipe from front to back. -No make creams, lotion, powder, rubbing alcohol or hydrogen peroxide on surgical area (can harm the tissue and slow healing). -Your doctor will give you specific instructions for what type of dressing or equipment you will need and how often it will need changed for infection purposes. -Do not allow anyone to touch your surgical area unless they are cleaning, checking, or redressing it (be sure they wash their hands first). -No contact of your surgical area with pets or pet hair; avoid sleeping with pets. -Take full course of antibiotic if prescribed for you after surgery- do not stop unless directed to by your physician. You may also be given an antibiotic prior to your surgery to help prevent surgical site infections. -Eat a healthy and varied diet including proteins, fruits, and vegetables to help promote wound healing and keep blood sugars under control if you are diabetic. -Smoking slows the healing process by decreasing the amount of oxygen in your blood that is needed for tissue healing. Try to avoid or stop smoking if possible. CALL your doctor if you notice any of the following: -Increased redness or hardening around the surgical area. -Increased pain or increased blood in your urine. -If urine becomes increasingly cloudy, you notice sediment or particles in your urine, or you notice a foul odor or yellow or green discharge. -Fever higher than 101 degrees Fahrenheit for more than 4 hours. If you have a question, call your doctor s office. Go to the follow-up appointment with your doctor. documented [facility] 01-13-2025 Instructions Alistair Mcnally MD - 01/13/2025 9:10 PM EDT We discussed your chronic back and leg pain: - I recommend trying another epidural steroid injection to help manage your pain. I will perform this procedure at the [facility] ([address] Please call [phone] (option 2) to schedule this. - I prescribed Duloxetine 30 mg, to be taken once daily. This medication may help alleviate nerve pain. The prescription has been sent to your pharmacy. - You may consider director long term care or massage therapy if you find it helpful. These are safe options, but ensure they are affordable and sustainable for you. We discussed additional pain management options: - I recommend enrolling in the Empowered Relief course, a two-hour virtual program that focuses on managing chronic pain through a biopsychological approach. You will receive a scheduling ticket through [employer] to sign up. - I have added you to the waitlist for ketamine infusions, which may help with your refractory neuropathic pain and mood. This is a five-day treatment (one hour per day). You will be contacted when you reach the top of the waitlist. We discussed your mental health and coping strategies: - I recommend working with a pain psychologist to address the emotional and psychological aspects of chronic pain. This can be done virtually. You will receive a scheduling ticket through [employer] to set this up. Next steps: - Schedule your epidural steroid injection. - Enroll in the Empowered Relief course and consider scheduling a session with the pain psychologist. - Continue taking Duloxetine as prescribed. Let us know if you experience any side effects or if your symptoms do not improve. - Someone will contact you when it is time to schedule your ketamine infusions. Please reach out if you have any questions or concerns. documented in this encounter [facility] 01-13-2025 History of Presen t illness Narrative Images from the original note were not included. [facility] Comprehensive Pain Recovery [facility] [place] January 13, 2025 I have communicated my name and active licensure. The patient's identity and physical location were verified at the time of this visit. Either the patient or their legal field representative has been informed of the risks and benefits of -- and alternatives to -- treatment through a remote evaluation and consents to proceed with the evaluation remotely. The patient consented to the use of ambient AI software for draft documentation of the visit consistent with [facility]'s Notice of Privacy Practices. = Ruth Smith is a 54 year old single disabled x since 2012 (spine surg 2000 + nerve damage) years who lives with self in [place], [place]. He was referred by No referring provider defined for this encounter. Chief complaint: No chief complaint on file. SUBJECTIVE: Carlo is a 54-year-old male with a history of chronic back pain, presenting for evaluation of worsening pain and neuropathy. Carlo reports a significant increase in lower back pain radiating to the buttocks, right leg, calf, and occasionally the ankle, with intermittent pain in the left buttock and leg, not extending beyond the knee. This pain has been present since a hip fracture in January of the previous year, followed by a fall during rehabilitation that resulted in a femur fracture in three places. Carlo suspects the pain may be related to the lower lumbar region rather than the fractures. He has a history of neuropathy, confirmed by testing several years ago, and now experiences pain in the right leg. He also reports bilateral leg numbness when using the toilet, making it difficult to stand up. He denies bowel incontinence but has difficulty urinating, requiring a urology consultation and a planned cystoscopy. He denies any known issues with anesthesia, schizophrenia, heart failure, arrhythmias, atrial fibrillation, elevated intracranial pressure, or hyperthyroidism. Carlo has tried various treatments, including a facet joint injection, which worsened leg pain, and an epidural steroid injection by Dr. Pisano, which provided temporary relief for 1-2 days before the pain returned and worsened. He also reports increased pain after the injections. He has not tried director long term care, massage, or acupuncture. He spends more than 10 hours a day recumbent due to pain, with limited mobility around the house. He has a reduced appetite, eating only cereal for breakfast and lunch, and reports significant sleep disturbances, averaging 4 hours of sleep per night over the past 2 months. He experiences depression, frustration, irritability, low energy, and difficulty focusing, but denies suicidal ideation. He has a history of depression but has never seen a counselor or psychiatrist. He denies current use of recreational drugs, with past use of marijuana in college. Carlo has a history of a microdiscectomy at L5 in 1999, which resulted in nerve damage. He has been on disability since 2013 due to back issues. He also has a bulging disc in his neck, causing intermittent pain and electrical sensations down his spine. He was diagnosed with shoulder impingement by a neurologist and received an injection in his arm, which improved arm pain but not neck pain. He has a history of cirrhosis secondary to hepatitis C, for which he completed a 6-month course of treatment. He recently underwent a colonoscopy and endoscopy, and his platelet count was noted to be decreasing over the past year, with a recent count of 135. He also has uncontrolled hypertension, which he attributes to his pain. He denies a history of aortic stenosis or liver failure. Carlo is single, living alone, and has a part-time foster winder and friend for support. He is on a fixed income with disability and reports financial stress due to medical bills. He has a strong support system from his kash aviles's family. 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 R L5 TFESI on 12/16/24, no follow up with dept since Spine Red Flag Ruth Smith has no red flag symptoms. Anesthesia: No Schizophrenia: No : NA CHF: No Uncontrolled HTN: No Recent RI: Yes - started with pain Arrythmias: No Afib: No Hyperthyroid: No Aortic Stenosis: No Liver Failure: cirrhosis related to HCV (denies EtOH) Increased ICP: No Average pain over the last 7 days: 8/10 Previous pain treatments: physical therapy, medications, surgery, injections Functional Limitations: The patient has been unable to work since 1999. Time spent reclining is >10 hours/day (includes time in bed, recliner, sofa, ottoman, etc.). Tries to move and walk around, some days tougher than others Wellness: How would you describe your diet: right now eating cereal for breakfast/lunch then something later if I feel like it How many days a week do you exercise: trying, doing some walking around the house How many hours do you sleep a night: the most I've gotten is about 4 hours, at best I get a few naps Emotional Symptoms: include depression, frustration, and irritability The patient has loss of interest, energy, appetite, and sleep The patient denies suicidal ideation. Non-medical stresses: Include relationship conflicts, loss of job, financial problems, legal problems, and medical problems Family involvement: is neighbor, best friend daughter takes care of him and is supportive Financial Status: receives monthly disability income Allergies: Reviewed in the EMR Current Medications: Reviewed in the EMR Medical History: Reviewed in the EMR Surgical History: Reviewed in the EMR Psychiatric History: Depression Social History Tobacco Use Smoking status: Former Current packs/day: 0.00 Types: Cigarettes Quit date: 2010 Years since quittin.4 Smokeless tobacco: Never Substance Use Topics Alcohol use: No Drug use: No Substance use: Tobacco: Reviewed in the EMR @caphe@ has not consumed alcohol since 1999 Drug use: There is a history of experimentation with marijuana. Family History: Reviewed in the EMR ROS was positive for: Fatigue Difficulty walking Pain in the legs when walking Difficulty urinating Back pain All of the other systems reviewed were negative. OBJECTIVE: PHYSICAL EXAM: General: alert and appropriate, in no distress, well-hydrated, well nourished, and happy, smiling, interactive Skin: no rash noted Head: normocephalic, no abnormality or lesion noted Eyes: no injection Ears: hearing grossly normal Nose: external nose normal without rhinorrhea Neck: no self-reported cervical adenopathy Respiratory: breathing non-labored Chest: equal chest rise with normal respiratory effort Neurologic: no facial droop, speech is clear and fluent and no obvious deficit IMAGIN11/12/24 CT LUMBAR IMPRESSION: * No evidence of acute fracture or traumatic malalignment. * Degenerative changes with prominent height loss at L3 and degenerative endplate changes most significant at L2-L3, L4-L5 and L5-S1. * Moderate bony neuroforaminal stenosis at L3-L4 and to a lesser extent L4-L5, L5-S1, better assessed on the prior MR dated 08/26/2024. 11/03/24 XR LUMBAR IMPRESSION: Oqob-vo-nngulahl degenerative changes and slight retrolisthesis L3 on L4. MRI LUMBAR 08/05/24 EMG BUE: ASSESSMENT: The primary encounter diagnosis was Radiculopathy, lumbar region. Diagnoses of Diabetic peripheral neuropathy (HCC), Thrombocytopenia, History of total right hip replacement, H/O lumbar discectomy, and Chronic pain syndrome were also pertinent to this visit. Chronic Pain Syndrome # Radiculopathy, lumbar region (M54.16) Chronic lower back pain radiating to the right buttock, leg, calf, and ankle. Previous microdiscectomy at L5. Recent MRI shows some narrowing, but not severe. Previous epidural provided temporary relief. - Scheduled repeat epidural at [facility], and [place]. - Initiated duloxetine 30 mg PO daily. # Diabetic peripheral neuropathy (HCC) (E11.42) Neuropathic pain in the right leg. Previous EMG confirmed neuropathy. - Continue gabapentin 400 mg PO TID. - Added to waitlist for ketamine infusions. # Thrombocytopenia (D69.6) Platelet count at 135 x 10^9/L. Under hematology/oncology care; likely secondary to liver cirrhosis. # History of total right hip replacement (Z96.641) Previous right hip fracture and femur fracture with surgical intervention. No current issues reported. # H/O lumbar discectomy (Z98.890) Previous microdiscectomy at L5. Chronic back pain persists. # Chronic pain syndrome (G89.4) Severe chronic pain with significant impact on daily activities and quality of life. Associated with depression, anxiety, and sleep disturbances. Multiple interventions tried with limited success. - Referred to Back on [facility] program focusing on biopsychosocial model of pain management. - Scheduled for Empowered Relief course. - Referred to pain psychologist for virtual sessions. - Discussed potential benefits of chiropractic and massage therapy. PLAN: Further evaluation: None Nutrition: in future Therapies: Back on TREK/empowered relief Sleep: in future Worklessness: Yes Medications: Duloxetine 30mg daily Interventions: R L5 TFESI ordered today Infusions: ketamine 9. Pain Psychology: Yes Review, Ask, Review: Yes Follow-up: 4-6 wks after injection I spent a total of 41 minutes on the date of the service which included preparing to see the patient, [id number] patient care, completing clinical documentation, and counseling and educating the patient/family/caregiver. Alistair Mcnally MD Important Patient Information: 1. To schedule Pain Recovery appointments or post-injection office visits, please call: [phone] 2. The nursing staff and medical assistants are an integral part of your pain recovery team and will be handling your phone calls and inquiries. 3. Your study results and treatment plan will be discussed during a follow-up appointment. If you do not have a follow-up appointment and wish to discuss any issues directly with me, please call: [phone] to set-up an appointment. 4. MyChart is best used for refill requests or yes or no questions. Anything more complicated will likely require a follow-up appointment that you can schedule by [phone]. 5. If you are scheduled for a ketamine infusion, you will be contacted regarding specific scheduling instructions in the future by our department. There is no need to contact our department regarding the scheduling process or your estimated wait; you will be contacted once there is an opening. documented in this encounter [facility] 01-13-2025 Note HNO ID: [id number] Author: ALISTAIR MCNALLY MD Service: ? Author Type: Physician Type: Progress Notes Filed: 01/13/2025 21:15 Note Text: THE [facility] Comprehensive Pain Recovery [facility] [place] January 13, 2025 I have communicated my name and active licensure. The patient's identity and physical location were verified at the time of this visit. Either the patient or their legal field representative has been informed of the risks and benefits of -- and alternatives to -- treatment through a remote evaluation and consents to proceed with the evaluation remotely. The patient consented to the use of [employer] software for draft documentation of the visit consistent with [facility]'s Notice of Privacy Practices. = Ruth Smith is a 54 year old single disabled x since 2012 (spine surg 1999 + nerve damage) years who lives with self in [place], [place]. He was referred by No referring provider defined for this encounter. Chief complaint: No chief complaint on file. SUBJECTIVE: Carlo is a 54-year-old male with a history of chronic back pain, presenting for evaluation of worsening pain and neuropathy. Carlo reports a significant increase in lower back pain radiating to the buttocks, right leg, calf, and occasionally the ankle, with intermittent pain in the left buttock and leg, not extending beyond the knee. This pain has been present since a hip fracture in January of the previous year, followed by a fall during rehabilitation that resulted in a femur fracture in three places. Carlo suspects the pain may be related to the lower lumbar region rather than the fractures. He has a history of neuropathy, confirmed by testing several years ago, and now experiences pain in the right leg. He also reports bilateral leg numbness when using the toilet, making it difficult to stand up. He denies bowel incontinence but has difficulty urinating, requiring a urology consultation and a planned cystoscopy. He denies any known issues with anesthesia, schizophrenia,heart failure, arrhythmias, atrial fibrillation, elevated intracranial pressure, or hyperthyroidism. Carlo has tried various treatments, including a facet joint injection, which worsened leg pain, and an epidural steroid injection by Dr. Pisano, which provided temporary relief for 1-2 days before the pain returned and worsened. He also reports increased pain after the injections. He has not tried director long term care, massage, or acupuncture. He spends more than 10 hours a day recumbent due to pain, with limited mobility around the house. He has a reduced appetite, eating only cereal for breakfast and lunch, and reports significant sleep disturbances, averaging 4 hours of sleep per night over the past 2 months. He experiences depression, frustration, irritability, low energy, and difficulty focusing, but denies suicidal ideation. He has a history of depression but has never seen a counselor or psychiatrist. He denies current use of recreational drugs, with past use of marijuana in college. Carlo has a history of a microdiscectomy at L5 in 1999, which resulted in nerve damage. He has been on disability since 2013 due to back issues. He also has a bulging disc in his neck, causing intermittent pain and electrical sensations down his spine. He was diagnosed with shoulder impingement by a neurologist and received an injection in his arm, which improved arm pain but not neck pain. He has a history of cirrhosis secondary to hepatitis C, for which he completed a 6-month course of treatment. He recently underwent a colonoscopy and endoscopy, and his platelet count was noted to be decreasing over the past year, with a recent count of 135. He also has uncontrolled hypertension, which he attributes to his pain. He denies a history of aortic stenosis or liver failure. Carlo is single, living alone, and has a part-time foster winder and friend for support. He is on a fixed income with disability and reports financial stress due to medical bills. He has a strong support system from his frie, kash's family. 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 R L5 TFESI on 12/16/24, no follow up with dept since Spine Red Flag Ruth Smith has no red flag symptoms. Anesthesia: No Schizophrenia: No : NA CHF: No Uncontrolled HTN: No Recent RI: Yes - started with pain Arrythmias: No Afib: No Hyperthyroid: No Aortic Stenosis: No Liver Failure: cirrhosis related to HCV (denies EtOH) Increased ICP: No Average pain over the last 7 days: 8/10 Previous pain treatments: physical therapy, medications, surgery, injections Functional Limitations: The patient has been unable to work since 1999. Time spent reclining is >10 hours/day (includes time in bed, recliner, sofa, ottoman, etc.) (more content not included)... [facility] 12-19-2024 Telephone encounter Note Patient calling back reporting 50% pain relief- mostly in the lower back. Unable to give a percentage of functional improvement. States he has been sick for the last coupe days and has not been out of bed much. He has VV with Komal Hernadez on 01/03. Will schedule 4-6 week follow up at that visit per patient. [facility] 12-19-2024 Miscellaneous Notes Patient calling back reporting 50% pain relief- [...] for follow up. documented in this encounter [facility] 12-18-2024 Telephone encounter Note Message left for patient to call in with an update. Please document the % (40%, 50%,etc) of improvement and any functional improvement since his procedure with Dr. Rinaldi on 12/16/24. Right L5-S1 Transforaminal Epidural Steroid injection # 1 Pre pain: 8 Post pain: 7 Plan: Return to clinic in 4-6 weeks for follow up. [facility] 12-12-2024 Radiology Diagnostic study note [facility] [address] [place] [address] Ultrasound Report Signed Patient: Ruth Smith MR #: [id number] : 1970 Acct:[id number] Age/Sex: 54 / M ADM Date: 5 Loc: Room: Type: [facility] Attending Dr: Guillermo Thornton MD Ordering [...] Kuo M.D. 12/12/2024 7:59 PM Dictation Location: [place] [address] Tech: Keren Hope Transcribed By: YAZ 12/12/241958 Dictated By: Thierry Kuo MD 12/12/241954 Signed By: 12/12/241958 [facility] Work Phone: 12-05-2024 Evaluation note Diagnosis Onset Date Resolution Cirrhosis acute December 05 1:16pm Esophageal varices acute December 05, 2024 1:16pm GERD (gastroesophageal reflux disease) acute December 05, 2024 1:16pm Hepatic encephalopathy acute Ap 2024 1:16pm Irritable bowel syndrome with diarrhea acute December 05, 2024 1:16pm Personal history of colon cancer acute December 05, 2024 1:16pm [facility] Work Phone: [phone]) 241-823504-23-2025 Evaluation + Plan note* Assessment & Plan Note - HUBERT Wright - 12/04/2024 4:15 PM EDTAssociated Problem(s): Difficulty urinating We discussed that he may need urodynamics as well. [employer]04-23-2025 Miscellaneous Notes* Assessment & Plan Note - HUBERT Wright - 12/04/2024 4:15 PM EDTAssociated Problem(s): Difficulty urinating We discussed that he may need urodynamics as well. [facility] History of Present illness Narrative* HUBERT Wright - 12/04/2024 3:30 PM EDT Images from the original note were not included. [address] [place] [address] [facility] [id number] Patient: Ruth Smith Date of : 1970 Encounter Date: 12/04/2024 History of Present Illness: The patient is a 54 y.o. male, a new patient, and is here for difficulty urinating. He saw his PCP 10/10/2024. At that appointment he mentioned that he was having difficulty urinatingand straining to void. He was also having some right-sided back pain. He was already taking Flomax since 2018 and was referred to Urology for further [...] No prior urologic history. He is seeing [facility] for the back pain and is scheduled [...] from lisinopril Chronic pain disorder Colon cancer [place] 2018 COPD (chronic obstructive pulmonary disease) ([facility] Depression Diabetes mellitus type 2, controlled ([facility] Fibromyalgia, primary Fracture of right hip, closed, initial encounter ([facility] 01/17/2024 GERD (gastroesophageal reflux disease) Hyperlipidemia Hypertension Infectious viral hepatitis 2018 Inflammatory bowel disease 2018 Insulin-treated type 2 diabetes mellitus ([facility] Joint pain Kidney stones Liver disease Low back pain Neck pain Obesity Osteoarthritis Peptic ulceration 1994 Peripheral neuropathy 2016 Visual impairment Past Surgical History: Procedure Laterality Date BACK SURGERY 1999 Dr. Veto [facility] L5 ruptured disc per patient COLON SURGERY resection, 2017, [facility] COLONOSCOPY 2021 [facility] REPAIR HERNIA VENTRAL N/A 10/27/2021 Performed by Ridge Cedillo MD at [facility] DENTAL SURGERY pt had all teeth removed FRACTURE SURGERY 2023 Hip,and femur HERNIA REPAIR x's 2 INGUINAL HERNIA REPAIR 2019 INSERTION INTRAMEDULLARY NAIL FEMUR Right 01/30/2024 Performed by Ang Figueroa MD at [facility] INSERTION INTRAMEDULLARY NAIL FEMUR-TFNA HIP FX Right 01/18/2024 Performed by Ang Figueroa MD at [facility] ORTHOPEDIC SURGERY 2008 foot, infected foot REMOVAL HARDWARE INTRAMEDULLARY NAIL/KATERYNA FEMUR Right 01/30/2024 Performed by Ang Figueroa MD at [facility] SMALL INTESTINE SURGERY 2018 SPINE SURGERY 2000 [...] total) by mouth once daily at bedtime. DEXCOM G7 SENSOR device fenofibrate (LOFIBRA) 160 mg [...] urinating - [facility] [place] - Measure post void residual Problem List [...] what sounds to be an ablation with [facility], he will call and cancel. At [...] HUBERT Wright 12/04/24 1616 documented in this encounterRiverview Health Institute04-21-2025 Telephone encounter Note* Telephone Encounter - Brennen Agrawal - 12/02/2024 9:15 AM EDT Right L5-S1 RUTH ESPOSITO [id number] BERENGER 5/5 -THINNERS +DM Patient was made aware that the ASC will call the day prior to scheduled procedure between the hours of 12 and 4 pm to advise patient of arrival time the day of procedure. 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 on the day of their procedure, and procedure will be cancelled if they arrive without a responsible adult to transport them home from the procedure. Patient advised that all medication management instructions prior to procedure will need addressed by clinical staff. Patient expresses understanding with no further questions or concerns at this time. [facility]04-21-2025 Miscellaneous Notes* Telephone Encounter - Brennen Agrawal - 12/02/2024 9:15 AM EDT Right L5-S1 RUTH ESPOSITO [id number] BERENGER 5/5 -THINNERS +DM Patient was made aware that the ASC will call the day prior to scheduled procedure between the hours of 12 and 4 pm to advise patient of arrival time the day of procedure. 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 on the day of their procedure, and procedure will be cancelled if they arrive without a responsible adult to transport them home from the procedure. Patient advised that all medication management instructions prior to procedure will need addressed by clinical staff. Patient expresses understanding with no further questions or concerns at this time. documented in this encounterAvita Health System [facility] Hospital04-17-2025 Instructions* Patient Instructions* Zac Crouch MD - 11/28/2024 4:02 PM EDT Labs today Start OTC MVT supplements 1 tab daily F/u in 3 months documented in this encounterAvita Health System [facility] Hospital04-17-2025 History of Present illness Narrative* Zac Crouch MD - 11/28/2024 4:00 PM EDT PATIENT NAME: Ruth Smith [facility] NO.: [id number] ATTENDING PHYSICIAN: Zac Crouch MD DATE OF SERVICE: November 28, [address] Abrahan Rinaldi [address] [facility] [address] thank you for referring Ruth Smith for [...] Other: See Comments Insulin Glargine GI Upset madeline PAST MEDICAL HISTORY Diagnosis Date Bipolar 1 [...] Wt 105 kg (231 lb 7.7 oz) WlB349% BMI 30.54 kg/m There were no vitals [...] Range Status 11/28/2024 6.0 % Final Abs [place] Date Value Ref Range Status 11/28/2024 0.52 [...] in [address] Abrahan Rinaldi [address] [facility] [address] thank you for allowing me to participate in Ruth Smith care, if there are any questions or concerns please do not hesitate to contact me at the number below. I spent a total of 45 minutes on the date of the service which included preparing to see the patient, lzpe-io-pgvp patient care, completing clinical documentation, obtaining and/or reviewing separately obtained history, performing a medically appropriate examination, counseling and educating the pat ient/family/caregiver, ordering medications, tests, or procedures, communicating with other HCPs (not separately reported), independently interpreting results (not separately reported), communicatingresults to the patient/family/caregiver, and care coordination (not separately reported). Zac Crouch MD. Hematology/Medical Oncology [facility] [phone] CC: documented in this encounterAvita Health System [facility]04-17-2025 NoteHNO ID: [id number] Author: ZAC CROUCH MD Service: ? Author Type: Physician Type: Progress Notes Filed: 11/29/2024 08:20 Note Text: PATIENT NAME: Ruth Smith [facility] NO.: [id number] ATTENDING PHYSICIAN: Zac Crouch MD DATE OF SERVICE: November 28, [address] Abrahan Rinaldi [address] [facility] [address] thank you for referring Ruth Smith for [...] axillary or inguinal a (more content not included)...[facility]04-14-2025 Telephone encounter Note* Telephone Encounter - Zac Crouch MD - 11/25/2024 1:30 PM EDT Thank you. [facility] Work Phone: [phone] Miscellaneous Notes* Telephone Encounter - Zac Crouch [...] or Monday? Thank you. documented in this encounterAvita Health System [facility] Hospital04-14-2025 Telephone encounter Note * Telephone Encounter - Donavon De La Garza - 11/25/2024 1:04 PM EDT Spoke to patient & rescheduled him on 11/28/2024 at 1 pm. BEN Holyl [facility]04-14-2025 Telephone encounter Note* Telephone Encounter - Zac Crouch MD - 11/25/2024 10:26 AM EDT Can you please reschedule him to some other time on Monday, or Monday? Thank you. [facility]04-11-2025 History of Present illness Narrative* Abrahan Rinaldi MD - 11/22/2024 2:00 PM EDT SUBJECTIVE: Mr. 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 Bench Tool Maker: No Passive conservative therapy lasting 6 weeks in the last six months (see below) 1. Medical devises: No 2. Acupuncture: No 3. Tens unit: No 4. Prescription pain medication: Yes 5. NSAIDS: Yes OCCUPATIONAL HISTORY: [employer] HISTORY OF TRAUMA/OVERUSE OF AREA: No [...] PAST SURGICAL HISTORY OF back injections EXAMINATION: PGBAUGLB-KRFIDGX-[id number]: Scoliosis: No Pelvic Tilt: No Leg Length [...] intact. Colonic stool burden is moderate. IMPRESSION: Sjgk-dc-kklmcgsf degenerative changes and slight retrolisthesis L3 on [...] ORIF . He then fell at the skilled nursing and fracture below his arthroplasty ([facility], Cleaning). [...] which included preparing to see the patient, jvbd-mf-fpmm patient care, completing clinical documentation, obtaining and/or reviewing separately obtained history, performing a medically appropriate examination, counseling and educating the pat ient/family/caregiver, ordering medications, tests, or procedures, communicating with other HCPs (not separately reported), independently interpreting results (not separately reported), and communicating results to the patient/family/caregiver. Abrahan Rinaldi MD documented in this encounterAvita Health System [facility]04-11-2025 NoteHNO ID: [id number] Author: ABRAHAN RINALDI MD Service: ? Author Type: Physician Type: Progress Notes Filed: 11/25/2024 08:23 Note Text: SUBJECTIVE: Mr. 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 Bench Tool Maker: No Passive conservative therapy lasting 6 weeks in the last six months (see below) 1. Medical devises: No 2. Acupuncture: No 3. Tens unit: No 4. Prescription pain medication: Yes 5. NSAIDS: Yes OCCUPATIONAL HISTORY: [employer] HISTORY OF TRAUMA/OVERUSE OF AREA: No REVIEW [...] PAST SURGICAL HISTORY OF back injections EXAMINATION: OOOTYKIT-HEFJSDI-HDFIFQSMO: Scoliosis: No Pelvic Tilt: No Leg Length [...] masses, organomegaly EXTREMITIES: Extremitie (more content not included)...[facility] 11-08-2024 Instructions* Patient Instructions* Martha Faulkner APRN.DYNAMICS AX SOLUTION ARCHITECT - 11/08/2024 4:32 PM EDT Images from the original note were not included. - Contact the Spine Center at [phone] to schedule an appointment. Ask for the location closestto [place]. - Obtain copies of your recent ER x-ray images and the MRI from August on a disc to bring to your Spine Center appointment. - [facility] [...] Bodyw Mov Ther. 2012;16(2):236-43. Accessed 12/26/2012 . [place] [employer]. Low Back Pain Exercise Guide. Accessed 12/26/2012. ?Copyright 9583-8126 [facility]. All rights reserved documented in this encounterAvita Health System [facility]03-28-2025 NoteHNO ID: [id number] Author: MARTHA FAULKNER APRN.ELIANE Service: ? Author Type: Nurse Practitioner Type: Progress Notes Filed: 11/08/2024 16:33 Note Text: Telemedicine Visit - Distance Health Virtual Visit Note Patient seen on [employer] Video Visit platform. Location of patient: [place] I have communicated my name and active licensure. The patient's identity and physical location were verified at the time of this visit. Either the patient or their legal field representative has been informed of the risks [...] further evaluation and management; provided contact number [phone] for scheduling. - Advised patient to obtain copies of recent MRI and X-ray images to bring to the Spine Center appointment. - Also referred to Pain Management for comprehensive pain control. - Discussed potential treatment options including surgical and non-surgical interventions. Orders Placed This Encounter CONSULT TO SPINE MEDICAL CENTER Standing Status: Future Expiration Date: 11/08/2025 Scheduling Instructions: please call [phone] for scheduling Does consulting provider have [facility] Introhive access?: Yes CONSULT PAIN MGMT Order Comments: PLEASE CALL:[phone] FOR AN APPOINTMENT Standing Status: Future Scheduling Instructions: Please select the clinical reason(s) for this consult to Pain Management: Evaluate and treat. Transfer pain medication prescribing to referring provider when patient on stable medication plan. Location[facility] [place]: [address] [place] [address] [address] [place], Does consulting provider have [facility] Introhive access?: Yes Attestation The patient consented to the use of [employer] software for draft documentation of the visit consistent with [facility]?s Notice of Privacy Practices. - Red flags discussed for need for in person care - All questions answered Martha Faulkner, MSN, SENIOR MANAGING DIRECTOR-DYNAMICS AX SOLUTION ARCHITECT, CUNP [facility] [place] [facility] [place] MDM CODING:[facility]03-28-2025 History of Present illness Narrative * Martha Faulkner APRN.DYNAMICS AX SOLUTION ARCHITECT - 11/08/2024 4:21 PM EDT Telemedicine Visit - Distance Health Virtual Visit Note Patient seen on [employer] Video Visit platform. Location of patient: [place] I have communicated my name and active licensure. The patient's identity and physical location wereverified at the time of this visit. Either the patient or their legal field representative has been informed of the risks [...] further evaluation and management; provided contact number [phone] for scheduling. - Advised patient to obtain copies of recent MRI and X-ray images to bring to the Spine Center appointment. - Also referred to Pain Management for comprehensive pain control. - Discussed potential treatment options including surgical and non-surgical interventions. Orders Placed This Encounter CONSULT TO SPINE MEDICAL CENTER Standing Status: Future Expiration Date: 11/08/2025 Scheduling Instructions: please call [phone] for scheduling Does consulting provider have [facility] Epic access?: Yes CONSULT PAIN MGMT Order Comments: PLEASE CALL:[phone] FOR AN APPOINTMENT Standing Status: Future Scheduling Instructions: Please select the clinical reason(s) for this consult to Pain Management: Evaluate and treat. Transfer pain medication prescribing to referring provider when patient on stable medication plan. Location: [facility]: [address] [place] [address] [address] [place], Does consulting provider have [facility] Epic access?: Yes Attestation The patient consented to the use of [employer] software for draft documentation of the visit consistent with [facility] s Notice of Privacy Practices. - Red flags discussed for need for in person care - All questions answered Martha Faulkner, MSN, JOHN-ELIANE, CUNP [facility] [place] MDM CODING: documented in this encounterAvita Health [facility]02-04-2025 Miscellaneous Notes* Telephone Encounter - Hannah Moreno - 09/17/2024 3:58 PM EST Patient called asking if he could have the Pain management referral placed to [facility] instead of [facility]. Advised patient that I would message Marcell to let her know and once the referral is placed we will send the information over to them. Patient verbalized understanding. documented in this encounterRiverview Health Institute02-04-2025 Telephone encounter Note* Telephone Encounter - Hannah Moreno - 09/17/2024 3:58 PM EST Patient called asking if he could have the Pain management referral placed to [facility] instead of [facility]. Advised patient that I would message Marcell to let her know and once the referral is placed we will send the information over to them. Patient verbalized understanding. [facility]01-15-2025 Miscellaneous Notes* Telephone Encounter - DAGO High - 08/28/2024 7:36 AM EST Refill sent. Patient's MRI was scheduled 08/27/2024 through [facility], awaiting result. documented in this encounterRiverview Health Institute01-15-2025 Telephone encounter Note* Telephone Encounter - DAGO High - 08/28/2024 7:36 AM EST Refill sent. Patient's MRI was scheduled 08/27/2024 through [facility], awaiting result. [facility]12-23-2024 History of Present illness Narrative* Komal Slade MA - 08/05/2024 2:00 PM EST Images from the original note were not included. Reason for Appointment: EMG Patient: Ruth Smith : 1970 EMG Computer: UNATION Referring Physician: Marcell Badillo CNP EMG: PRETTY stock repairer: Komal Slade [facility] Office Location: [place] Reason for EMG: c/o neck pain that radiates down the left arm. Weakness in the hands L>R. Paresthesia. Hx of DM, not taking blood thinners. Comments: Procedure explained to the patient who expressed understanding. documented in this encounterTenet St. [id number] Miscellaneous Notes* Telephone Encounter - DAGO Clay - 08/05/2024 10:34 AM EST For you * Telephone Encounter - DAGO High - 08/05/2024 10:34 AM EST See telephone note. documented in this encounterRiverview Health Institute12-23-2024 Telephone encounter Note* Telephone Encounter - DAGO Clay - 08/05/2024 10:34 AM EST For you [employer] Work Phone: [phone] Telephone encounter Note* Telephone Encounter - DAGO High - 08/05/2024 10:34 AM EST See telephone note. [facility] [id number] History of Present illness Narrative* Marcell Kraft [...] from lisinopril Chronic pain disorder Colon cancer ([facility] 2018 COPD (chronic obstructive pulmonary disease) ([facility]) Depression Diabetes mellitus type 2, controlled ([facility]) Fibromyalgia, primary Fracture of right hip, closed, initial encounter ([facility]) 01/17/2024 GERD (gastroesophageal reflux disease) Hyperlipidemia Hypertension Insulin-treated type 2 diabetes mellitus (CMS-HCC) Joint pain Kidney stones Liver disease Low back pain Neck pain Obesity Osteoarthritis Visual impairment Past Surgical History: Procedure Laterality Date BACK SURGERY 1999 Dr. Veto [facility] L5 ruptured disc per patient COLON SURGERY resection, 2018, [facility] DAVINCI REPAIR HERNIA VENTRAL N/A 10/27/2021 Performed by Ridge Cedillo MD at [facility] DENTAL SURGERY pt had all teeth removed HERNIA REPAIR x's 2 INSERTION INTRAMEDULLARY NAIL FEMUR Right 01/30/2024 Performed by Ang Figueroa MD at [facility] INSERTION INTRAMEDULLARY NAIL FEMUR-TFNA HIP FX Right 01/18/2024 Performed by Ang Figueroa MD at [facility] ORTHOPEDIC SURGERY 2008 foot, infected foot REMOVAL HARDWARE INTRAMEDULLARY NAIL/KATERYNA FEMUR Right 01/30/2024 Performed by Ang Figueroa MD at [facility] Social History Tobacco Use Smoking status: Every [...] mg/mL) ANG FIGUEROA MD documented in this encounterRiverview Health Institute12-11-2024 Miscellaneous Notes* Telephone Encounter - CARINE Apodaca - 07/24/2024 11:47 AM EST [facility] Patient called today stating that his EMG is scheduled on 08/05/24 and he hasn't heard from anyone about scheduling the MRI. I advised patient he should call central scheduling to schedule the MRI. Patient stated he will do that when we hang up. Patient also stated that his steroid and pain medicine will run out tomorrow and has to come to [place] tomorrow to see ortho. Patient stated his [...] seeing orthofor tomorrow. He will try calling [facility] to schedule MRI. documented in this encounterFirelands Regional Medical CenterGlobalLogic Asc[facility] Borgess-Pipp [id number] Telephone encounter Note* Telephone Encounter - CARINE Apodaca - 07/24/2024 11:47 AM EST [facility] Patient called today stating that his EMG is scheduled on 08/05/24 and he hasn't heard from anyone about scheduling the MRI. I advised patient he should call central scheduling to schedule the MRI. Patient stated he will do that when we hang up. Patient also stated that his steroid and pain medicine will run out tomorrow and has to come to [place] tomorrow to see ortho. Patient stated his doctor is worried about him traveling all the way up here and recommended that he call for a refill of the percocet and prednisone. Patient stated that his PCP will not refill these medications since he was referred to our office. [facility] Paomianba.[id number] Telephone encounter Note* Telephone Encounter - DAGO High - 07/24/2024 11:47 AM EST Refills sent. He denies constipation. The highest his glucose has been is 220. Will decrease prednisone to once daily. He reports he has some swelling at his hip surgical site that he is seeing orthofor tomorrow. He will try calling [facility] to schedule MRI. [facility]12-05-[facility] History of Present illness Narrative* DAGO High - 07/18/2024 11:00 AM EST Images from the original note were not included. [facility] [address] [facility] [address] [facility] [id number] Subjective Patient ID: Ruth Smith is a [...] x 1 week 01/2024 then home PT til Mar -home health care respiratory therapist: none -Pain management: [place] [facility] 04/02/2024 consult-SIJ injection discussed but patient did not return due to being there for 3.5 hours Prior lumbar injections at [facility] a couple years ago-remembers one helping his left side Had injections after surgery in 1999 -Pertinent spine surgeries/previous consults: 1999 L5 [address]. Veto [facility] 01/18/2024 right intramedullary nail femur placed by [...] by overlying soft tissue.. MRI cervical 11/13/2023 [facility] Comparison: CT cervical spine 11/01/2023 Motion artifact degrades imaging. Bony alignment: Straightening Bony lesion: None Cervical cord: No significant demyelination Skull base: Unremarkable Prevertebral soft tissues: Unremarkable Vertebral arteries: Unremarkable Cervical soft tissues: Unremarkable C1-C4: Unremarkable C4-5: Mild spondylosis with patent central canal and neural foramen. C5-6: Moderate spondylosis. Moderate diffuse disc bulge. Patent central canal. Rrub-vv-hqgeouum bilateral neural foraminal narrowing. C6-T1: Unremarkable Impression: Moderate C5-6 spondylosis with diffuse disc bulge and imxn-az-yrbdcdto bilateral neuralforaminal narrowing. MRI lumbar 04/15/2022 [facility] Findings: The bones of the lumbar spine [...] disc bulge with facet hypertrophy. There is vyht-jf-yjdeqtpf right andmild left neural foraminal narrowing with mild spinal canal. L3-4: There is facet hypertrophy bilaterally. There is broad-based disc bulge. There is wubc-nf-fyzhgpbw bilateral neural foraminal narrowing with mild spinal canal narrowing. L4-5: There is a central disc bulge with facet. There is mild spinal canal narrowing. There is mildbilateral neural foraminal narrowing. L5-S1: There is a circumferential disc bulge with endplate osteophyte formation and facet hypertrophy. There is hgrv-qm-pxicybtk bilateral neural foraminal narrowing with mild spinal canal narrowing. Impression: At L2-3 there is a broad-based disc bulge with facet hypertrophy. There is fyle-rg-wlgzilvi right and mild left neural foraminal narrowing with mild spinal canal. This is unchanged. At L3-4 There is broad-based disc bulge. There is ougq-re-zgewqkem bilateral neural foraminal narrowing with mild spinal canal narrowing. This is unchanged. At L4-5 there is a central disc bulge with facet. There is mild spinal canal narrowing. There is mild bilateral neural foraminal narrowing. This is unchanged. At L5-S1 there is a circumferential disc bulge with endplate osteophyte formation and facet hypertrophy. There is dlvg-hz-pquoyywg bilateral neural foraminal narrowing with mild spinal [...] view. IMPRESSION: Stable right knee. EMG 2021 [facility] Conclusion: Extensively EMG of the lower [...] once daily at bedtime., Disp: , Rfl: DEXCOM G7 SENSOR device, USE DIRECTED AND CHANGE [...] from lisinopril Chronic pain disorder Colon cancer ([facility] 2018 COPD (chronic obstructive pulmonary disease) ([facility]) Depression Diabetes mellitus type 2, controlled ([facility]) Fibromyalgia, primary Fracture of right hip, closed, initial encounter ([facility]) 01/17/2024 GERD (gastroesophageal reflux disease) Hyperlipidemia Hypertension Insulin-treated type 2 diabetes mellitus ([facility]) Joint pain Kidney stones Liver disease Low [...] stretches. He does not wantto return to [place] pain management. Can see if he would like to return to [facility] once we confirm no surgical findings. 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 I discussed potential benefits and side effects of medication and the serious risk of overdose or even . Patient understands to not drive or operate/engage in heavy or endangering machinery/activities while taking the medication. Patient advised to avoid alcohol, benzodiazepines, opioids or another PEER EDUCATOR depressant/sedating medications while taking. Concomitant use of [...] is completed. Thank you for the referral. ROBERT Coon (Cryan)P-C [facility] All questions were answered during [...] DAGO High 07/18/24 1342 documented in this encounterRockingham Memorial HospitalNaseeb Networks12-05-2024 Instructions* Patient Instructions* DAGO High - 07/18/2024 [...] before switching to the other temperature. Take tqxv-ylh-pnthxsa medicines. The use of sxei-xcw-nastjlu anti-inflammatory medications, creams,ointments and patches can help [...] conditions listed above. When to notify your rail specialist: If your neck pain or back [...] through Care Everywhere. * Quitting Smoking ED (Ukrainian) documented in this encounterRiverview Health Institute11-07-2024 History of Present illness Narrative* Ang Figueroa [...] from lisinopril Chronic pain disorder Colon cancer ([facility]) COPD (chronic obstructive pulmonary disease) ([facility]) Depression Diabetes mellitus type 2, controlled ([facility]) Fibromyalgia, primary Fracture of right hip, closed, initial encounter ([facility]) 01/17/2024 GERD (gastroesophageal reflux disease) Hyperlipidemia Hypertension Insulin-treated type 2 diabetes mellitus ([facility] Joint pain Kidney stones Liver disease Low back pain Neck pain Obesity Osteoarthritis Visual impairment Past Surgical History: Procedure Laterality Date BACK SURGERY COLON SURGERY resection, 2018, [facility] DAVINCI REPAIR HERNIA VENTRAL N/A 10/27/2021 Performed by Ridge Cedillo MD at [facility] DENTAL SURGERY pt had all teeth removed HERNIA REPAIR x's 2 INSERTION INTRAMEDULLARY NAIL FEMUR Right 01/30/2024 Performed by Ang Figueroa MD at [facility] INSERTION INTRAMEDULLARY NAIL FEMUR-TFNA HIP FX Right 01/18/2024 Performed by Ang Figueroa MD at [facility] ORTHOPEDIC SURGERY 2007 foot, infected foot REMOVAL HARDWARE INTRAMEDULLARY NAIL/KATERYNA FEMUR Right 01/30/2024 Performed by Ang Figueroa MD at [facility] Social History Tobacco Use Smoking status: Every [...] Palpation: Non-tender to palpation over lateral joint commercial lines insurance agent to palpation over medial joint line Stability [...] the medial and lateral joint lines ASSESSMENT: Ruth Smith is a 53 y.o. male osteoarthritis [...] completeness of the aforementioned history prepared bythe vandergrift practice provider, and I personally performed the [...] mg/mL) Ang Figueroa MD documented in this encounterFirelands Regional Medical CenterGlobalLogic Ascension Borg[facility]-Pipp [id number] Evaluation note* Diagnosis Onset Date Resolution Status Admit Date Cirrhosis acute June 05, 2024 1:27pm GERD (gastroesophageal reflu x disease) acute June 05 1:27pm Irritable bowel syndrome wit h diarrhea acute June 05 1:27pm [facility] Work Phone: 1(927) 178-674609-05-2024 History of Present illness Narrative* Ang Figueroa [...] completeness of the aforementioned history prepared bythe vandergrift practice provider, and I personally performed the [...] months Ang Figueroa MD documented in this encounterRiverview Health Institute08-22-2024 Miscellaneous Notes* Telephone Encounter - Lorena Red RN - 04/04/2024 7:34 AM EDT Received orthopedic clearance for pt to proceed with Right SI joint inj with MAC sedation. Needs scheduled Needs insurance auth * Telephone Encounter - Nikia Gannon CNA - 04/04/2024 7:34 AM EDT Attempted to schedule. Carlo will call when he is able to schedule documented in this encounterRiverview Health Institute08-22-2024 Telephone encounter Note* Telephone Encounter - Lorena Red RN - 04/04/2024 7:34 AM EDT Received orthopedic clearance for pt to proceed with Right SI joint inj with MAC sedation. Needs scheduled Needs insurance auth [facility]08-22-2024 Telephone encounter Note* Telephone Encounter - Nikia Gannon CNA - 04/04/2024 7:34 AM EDT Attempted to schedule. Carlo will call when he is able to schedule [facility]08-20-2024 History of Present illness Narrative* Eddie Torre, JOHN-DYNAMICS AX SOLUTION ARCHITECT - 04/02/2024 12:15 PM EDT [facility] [address] [place] [address] Patient: Ruth Smith Sex: male : 1970 Age: 53 y.o. PCP: DIANE MCGRATH APRN-CLINICAL DOCUMENTATION IMPROVEMENT SPECIALIST 04/02/2024 Ruth Smith is here for a [...] from lisinopril Chronic pain disorder Colon cancer ([facility]) COPD (chronic obstructive pulmonary disease) ([facility]) Depression Diabetes mellitus type 2, controlled ([facility]) Fibromyalgia, primary Fracture of right hip, closed, initial encounter ([facility]) 01/17/2024 GERD (gastroesophageal reflux disease) Hyperlipidemia Hypertension Insulin-treated type 2 diabetes mellitus ([facility]) Joint pain Kidney stones Liver disease Low back pain Neck pain Obesity Osteoarthritis Visual impairment Past Surgical History: Procedure Laterality Date BACK SURGERY COLON SURGERY resection, 2018, [facility] DAVINCI REPAIR HERNIA VENTRAL N/A 10/27/2021 Performed by Ridge Cedillo MD at [facility] SURGERY pt had all teeth removed HERNIA REPAIR x's 2 INSERTION INTRAMEDULLARY NAIL FEMUR Right 01/30/2024 Performed by Ang Figueroa MD at [facility] INSERTION INTRAMEDULLARY NAIL FEMUR-TFNA HIP FX Right 01/18/2024 Performed by Ang Figueroa MD at [facility] ORTHOPEDIC SURGERY 2008 foot, infected foot REMOVAL HARDWARE INTRAMEDULLARY NAIL/KATERYNA FEMUR Right 01/30/2024 Performed by Ang Figueroa MD at [facility] Allergies Allergen Reactions Insulin Glargine Nausea And [...] 20 min Stress: Stress Concern Present (02/03/2024) [employer] [place] [employer] - Occupational Stress Questionnaire Feeling of Stress : To some extent Social Connections: Socially Isolated (02/03/2024) Social Connection and Isolation Panel [NHANES] Frequency of Communication with Friends and Family: Twice a week Frequency of Social Gatherings with Friends and Family: Twice a week Attends Congregation Services: Never Active Member of Clubs or [...] CÁRDENAS by Lorena Red RN. Provider Statement: EDDIE Alvarado APRN-CNP, personally performed the services described in the documentation,as scribed by Lorena Red RN in my presence, and it is both accurate and complete. Lorena Red RN 04/02/24 6342 DAGO Cárdenas 04/02/24 1625 documented in this encounterFirelands Regional Medical CenterBeijing capital online science and technology [id number] Instructions* Patient Instructions* Lorena Red RN - [...] the nearest emergency room. documented in this encounterRiverview Health Institute08-05-2024 History of Present illness Narrative* Tom Marquez [...] Marquez PA-C 03/18/24 1432 documented in this encounterRiverview Health Institute08-01-2024 History of Present illness Narrative* Rehana Retana [...] Retana PA-C 03/14/24 1410 documented in this encounterRiverview Health Institute08-01-2024 Instructions* Patient Instructions* Rehana Retana PA-C - 03/14/2024 1:00 PM EDT Patient Education Calcium and Vitamin D (JAGDISH see um & CHIVO wadsworth) Brand Names: US Evert-Citrate Plus Vitamin D [OTC]; Calcet Petites [OTC]; Calcitrate [OTC] [DSC]; Calcium 500/D [OTC] [DSC]; Calcium 600+D [OTC]; Calcium 600-D [OTC] [DSC]; Calcium Citrate + D3 Maximum[OTC]; Calcium High Potency/Vitamin D [OTC]; Calcium Plus Vitamin D [OTC]; Calcium+D3 [OTC]; Caltrat e 600+D3 Soft [OTC]; Caltrate 600+D3 [OTC]; Caltrate Gummy Bites [OTC]; Miner Calcium +D [OTC] [DSC]; Liquid Calcium with D3 [OTC]; Liquid Calcium/Vitamin D [OTC]; Os-Evert Calcium + D3 [OTC]; Os-Evert Extra D3 [OTC]; Os-Evert [OTC]; Oysco 500+D [OTC]; Oyster Calcium + D [OTC] [DSC]; Oyster Shell Calcium + D [OTC]; Oyster Shell Calcium + D3 [OTC]; Oyster Shell Calcium 250+D [OTC]; Oyster Shell [id number] + D [OTC]; Oyster Shell Calcium 500+D [...] or approved for treating a specific patient. [employer]. and its affiliatesdisclaim any warranty or liability relating to this information or the use thereof. The use of thisinformation is governed by the Terms of Use, available at https://www.wolterskluwer.com/en/know/ufrdhopr-xuecigrqbahlu-gejkz. Last Reviewed Date 2021-01-06 Copyright 2021 [employer] and its affiliates and/or licensors. All rights reserved. documented in this encounterRiverview Health Institute07-15-2024 History of Present illness Narrative* Tom Marquez PA-C - 02/26/2024 11:25 AM EDT Pharmacy called stating they only had 25 tablets available. Patient had a partial fill performed. OARRS report reviewed and acceptable. Prescription for remaining 7 tablets sent to pharmacy. Tom Marquez PA-C 02/26/24 1128 documented in this encounterRiverview Health Institute07-12-2024 History of Present illness Narrative* Tom Marquez [...] Marquez PA-C 02/23/24 1259 documented in this encounterRiverview Health Institute07-11-2024 History of Present illness Narrative* Ang Figueroa [...] from lisinopril Chronic pain disorder Colon cancer ([facility]) COPD (chronic obstructive pulmonary disease) ([facility]) Depression Diabetes mellitus type 2, controlled ([facility]) Fibromyalgia, primary Fracture of right hip, closed, initial encounter ([facility]) 01/17/2024 GERD (gastroesophageal reflux disease) Hyperlipidemia Hypertension Insulin-treated type 2 diabetes mellitus ([facility]) Joint pain Kidney stones Liver disease Low back pain Neck pain Obesity Osteoarthritis Visual impairment Past Surgical History: Procedure Laterality Date BACK SURGERY COLON SURGERY resection, 2018, [facility] DAVINCI REPAIR HERNIA VENTRAL N/A 10/27/2021 Performed by Ridge Cedillo MD at [facility] SURGERY pt had all teeth removed HERNIA REPAIR x's 2 INSERTION INTRAMEDULLARY NAIL FEMUR Right 01/30/2024 Performed by Ang Figueroa MD at [facility] INSERTION INTRAMEDULLARY NAIL FEMUR-TFNA HIP FX Right 01/18/2024 Performed by Ang Figueroa MD at [facility] ORTHOPEDIC SURGERY 2008 foot, infected foot REMOVAL HARDWARE INTRAMEDULLARY NAIL/KATERYNA FEMUR Right 01/30/2024 Performed by Ang Figueroa MD at [facility] Social History Tobacco Use Smoking status: Every [...] with x-ray right femur Tom Marquez PA-C I, JASON TANK, MD, personally performed the face to face evaluation on this patient. I discussed with the patient and confirmed the accuracy and completeness of the aforementioned history prepared bythe vandergrift practice provider, and I personally performed the clinical examination of the patient. I discussed the treatment plan with the patient. Returned to follow up today after after revision hip fracture surgical intervention. He has but 3 weeks out from this. Esmer removed Steri-Strips were placed. He is on [...] MD. Ang Figueroa MD documented in this encounterRiverview Health Institute07-08-2024 History of Present illness Narrative* Tom Marquez [...] Marquez PA-C 02/19/24 1355 documented in this encounterRiverview Health Institute07-01-2024 Miscellaneous Notes* Telephone Encounter - HUBERT Sylvester [...] be refilled on 02/16/2024. documented in this encounterRiverview Health Institute07-01-2024 Telephone encounter Note* Telephone Encounter - HUBERT [...] This medication can be refilled on 02/16/2024. [employer]06-22-2024 History of Present illness Narrative* HUBERT Faustin-Venu - 02/03/2024 1:57 PM EDT Orthopedic Progress [...] at bedside. Discharge Plan:inpatient rehab today LUIS FAUSTIN PA-C 02/03/24 1400 * Lian Lambert RN - 02/02/2024 2:46 PM EDT Initial Rehab Facility Preadmission Screening Sending facility: [facility] Room number: A729/01 Date of admission to hospital: 01/29/2024 PCP: Jd Du PA-C Primary insurance: Payor: MEDICARE / Plan: MEDICARE PART A & B / Product Type: *No Product type* / Policy #: [id number] - (Medicare) Secondary insurance: N/A Address: [address] [place] [address] [place] [address] (home) : 1970 Age: 53 y.o. Race: White or [1] Emergency contact: Extended Emergency Contact Information Primary Emergency Contact: Yvonne Martinez Mobile Relation: Mother Preferred language: Ukrainian Electrical Design Engineer needed? No Secondary Emergency Contact: Rakel Lira Mobile Relation: Relative Marital status: Single [1] Rehab Diagnosis/Primary condition that led to the patient's admission (IGC): Ruth Smith is a 53 y.o. male whose primary indication for inpatient rehabilitation is: Orthopedic Disorders: 03.24 Status Post Unilateral Hip Fracture Etiologic Diagnosis: Right periprosthetic subtrochanteric fx Patient presented to [facility] on 01/17/2024 with Right hip pain, reports he tripped over a dog & landed on his R knee. Imaging revealed a right IT nondisplaced fx. 01/18/2024 s/p IM nailing with dr Figueroa 01/22/2024 transferred to [facility] 01/29/2024 Patient was doing well postoperatively but [...] & f/u with ortho recommending transfer to [facility] 01/30/2024 s/p IM nailing & removal of right femur hardware with Dr Figueroa 02/01/2024 concern of right thigh swelling- ortho evaluated & noted Right leg edematous, but allcompartments soft and compressible 02/02/2024 continues to have increased pain to the RLE- dopplers pending Comorbidities/Medical issues requiring further interdisciplinary management at [facility]: Right IT nondisplaced fx WBAT Right periprosthetic [...] Closed displaced intertrochanteric fracture of right femur ([facility]) Closed fracture of right hip, initial encounter ([facility]) Hip fx ([facility]) Difficulty in walking Type 2 diabetes mellitus with circulatory disorder, with long-term current use of insulin ([facility]) Primary hypertension Class 1 obesity due to excess calories with serious comorbidity and body mass index (BMI) of 31.0 to 31.9 in adult BPH (benign prostatic hyperplasia) Myah-prosthetic fracture around prosthetic hip Past Medical History: Diagnosis Date Asthma Back pain Chronic cough from lisinopril Chronic pain disorder Colon cancer ([facility]) COPD (chronic obstructive pulmonary disease) ([facility]) Depression Diabetes mellitus type 2, controlled ([facility]) Fibromyalgia, primary Fracture of right hip, closed, initial encounter ([facility]) 01/17/2024 GERD (gastroesophageal reflux disease) Hyperlipidemia Hypertension Insulin-treated type 2 diabetes mellitus ([facility]) Joint pain Kidney stones Liver disease Low back pain Neck pain Obesity Osteoarthritis Visual impairment Past Surgical History: Procedure Laterality Date BACK SURGERY COLON SURGERY resection, 2018, [facility] DAVINCI REPAIR HERNIA VENTRAL N/A 10/27/2021 Performed by Ridge Cedillo MD at [facility] SURGERY pt had all teeth removed HERNIA REPAIR x's 2 INSERTION INTRAMEDULLARY NAIL FEMUR Right 01/30/2024 Performed by Ang Figueroa MD at [facility] INSERTION INTRAMEDULLARY NAIL FEMUR-TFNA HIP FX Right 01/18/2024 Performed by Ang Figueroa MD at [facility] ORTHOPEDIC SURGERY 2008 foot, infected foot REMOVAL HARDWARE INTRAMEDULLARY NAIL/KATERYNA FEMUR Right 01/30/2024 Performed by Ang Figueroa MD at [facility] Ongoing Medical Management Needs: Patient risk factors [...] Daily Demond Frazier MD 20 mg at 02/02/24 0839 cyanocobalamin tablet 1,000 mcg 1,000 mcg oral Daily Marsha Flores APRN-DYNAMICS AX SOLUTION ARCHITECT 1,000 mcg at 02/02/24 0839 cyclobenzaprine (FLEXERIL) [...] mg 1 mg oral Daily Marsha Flores APRN-DYNAMICS AX SOLUTION ARCHITECT 1 mg at 02/02/24 0841 gabapentin (NEURONTIN) [...] Nightly Demond Frazier MD 4 Units at 01/31/242137 ipratropium-albuteroL (DUONEB) 0.5 mg-3 mg(2.5 mg base)/3 [...] 1300) Pain Type: Acute pain, Surgical pain (02/02/24836) Pain Location: Hip, Leg (02/02/24836) Pain Orientation: Right (02/02/24836) Pain Radiating Towards: to knee (02/02/24436) Pain Descriptors: Sharp, Shooting (02/02/24436) Pain Frequency: Constant/continuous (02/02/24436) Pain Onset: Ongoing [...] chair, active wound: yes Dialysis? No Language/Cognition: Ukrainian [22] Hearing / Speech / Vision Hearing: [...] precautions: Precautions: Fall (02/02/24799) Cultural considerations: N/A Electrical Design Engineer needed? No [2] BP 123/73 Pulse 88 [...] Large (02/01/24 0031) Bowel Incontinence: No (02/02/24 0400) Unmeasured Stool Occurrence: 0 (01/31/24 1600) Last [...] independent without devices. He had been at [facility] just prior to this adm and amb short distances on his own with rw per his report. (01/31/24904) Speech Therapy: No Speech/Language Impressions: Swallowing Impressions: Current Level of Function - Physical Therapy: Mobility/transfers: Supine to Sit: Mod assist (of 2) (02/01/241002) Sit to Supine: Unable to assess (02/01/241002) Transfers Sit to Stand: Min assist, Verbal cues, Tactile cues (x2) (02/02/24836) Stand to Sit: Min assist, Verbal cues, Tactile cues (x2) (02/02/24836) Bed to Chair: Min assist (of 2) (02/01/241002) Other: Patient cued for hand placement/technique for [...] attempted d/t safety concerns (02/02/24836) Other: Patient demos major difficulties lifting and [...] chair (01/31/24904) Home Equipment: Rolling walker, Cane, Stitch Bonding Machine Drawer In (01/31/24904) Other : No AE/DME needs prior to initial injury (01/31/24903) Lives with: Lives With: Alone (01/31/24904) Additional support system: Receives Help From: Neighbor (01/31/24 0905) Therapy Plan: The patient requires the active [...] preadmission screening. Erick Sharp DO * Leatha Saldivar MD - 02/02/2024 10:18 AM EDT 02/02/2024 Patient Name: Ruth Smith : 1970 Code status: Problem List: Principal Problem: Closed fracture of right hip, initial encounter ([facility]) Active Problems: Myah-prosthetic fracture around prosthetic hip [...] duplex of right lower extremity * Leatha Saldivar MD - 02/01/2024 10:18 AM EDT 02/01/2024 Patient Name: Ruth Smith : 1970 Code status: Problem List: Principal Problem: Closed fracture of right hip, initial encounter ([facility]) Active Problems: Myah-prosthetic fracture around prosthetic hip [...] Initial Rehab Facility Preadmission Screening Sending facility: [facility] Room number: A729/01 Date of admission to hospital: 01/29/2024 PCP: Jd Du PA-C Primary insurance: Payor: MEDICARE / Plan: MEDICARE PART A & B / Product Type: *No Product type* / Policy #: [id number] - (Medicare) Secondary insurance: N/A Address: [address] [place] [id number] (home) : 1970 Age: 53 y.o. Race: White or [1] Emergency contact: Extended Emergency Contact Information Primary Emergency Contact: Yvonne Martinez Mobile Relation: Mother Preferred language: Ukrainian Electrical Design Engineer needed? No Secondary Emergency Contact: Rakel Lira Mobile Relation: Relative Marital status: Single [1] Rehab Diagnosis/Primary condition that led to the patient's admission (IGC): Ruth Smith is a 53 y.o. male whose primary indication for inpatient rehabilitation is: Orthopedic Disorders: 03.24 Status Post Unilateral Hip Fracture Etiologic Diagnosis: Right periprosthetic subtrochanteric fx Patient presented to [facility] on 01/17/2024 with Right hip pain, reports he tripped over a dog & landed on his R knee. Imaging revealed a right IT nondisplaced fx. 01/18/2024 s/p IM nailing with dr Figueroa 01/22/2024 transferred to [facility] 01/29/2024 Patient was doing well postoperatively but [...] & f/u with ortho recommending transfer to [facility] 01/30/2024 s/p IM nailing & removal of right femur hardware with Dr Figueroa Comorbidities/Medical issues requiring further interdisciplinary management at [facility]: Right IT nondisplaced fx WBAT Right periprosthetic [...] Closed displaced intertrochanteric fracture of right femur ([facility]) Closed fracture of right hip, initial encounter ([facility] Hip fx ([facility]) Difficulty in walking Type 2 diabetes mellitus with circulatory disorder, with long-term current use of insulin ([facility]) Primary hypertension Class 1 obesity due to excess calories with serious comorbidity and body mass index (BMI) of 31.0 to 31.9 in adult BPH (benign prostatic hyperplasia) Myah-prosthetic fracture around prosthetic hip Past Medical History: Diagnosis Date Asthma Back pain Chronic cough from lisinopril Chronic pain disorder Colon cancer ([facility]) COPD (chronic obstructive pulmonary disease) ([facility]) Depression Diabetes mellitus type 2, controlled ([facility]) Fibromyalgia, primary Fracture of right hip, closed, initial encounter ([facility]) 01/17/2024 GERD (gastroesophageal reflux disease) Hyperlipidemia Hypertension Insulin-treated type 2 diabetes mellitus ([facility]) Joint pain Kidney stones Liver disease Low back pain Neck pain Obesity Osteoarthritis Visual impairment Past Surgical History: Procedure Laterality Date BACK SURGERY COLON SURGERY resection, 2018, [facility] DAVINC REPAIR HERNIA VENTRAL N/A 10/27/2021 Performed by Ridge Cedillo MD at [facility] DENTAL SURGERY pt had all teeth removed HERNIA REPAIR x's 2 INSERTION INTRAMEDULLARY NAIL FEMUR Right 01/30/2024 Performed by Ang Figueroa MD at [facility] INSERTION INTRAMEDULLARY NAIL FEMUR-TFNA HIP FX Right 01/18/2024 Performed by Ang Figueroa MD at [facility] ORTHOPEDIC SURGERY 2008 foot, infected foot REMOVAL HARDWARE INTRAMEDULLARY NAIL/KATERYNA FEMUR Right 01/30/2024 Performed by Ang Figueroa MD at [facility] Ongoing Medical Management Needs: Patient risk factors [...] Daily Demond Frazier MD 2,000 Units at 02/01/24803 citalopram (CeleXA) tablet 20 mg 20 mg oral Daily Demond Frazier MD 20 mg at 02/01/24 0804 cyanocobalamin tablet 1,000 mcg 1,000 mcg oral Daily DAGO Medrano 1,000 mcg at 02/01/24803 cyclobenzaprine (FLEXERIL) tablet 10 mg 10 mg [...] Daily Demond Frazier MD 40 mg at 02/01/24616 ergocalciferol (DRISDOL) capsule 50,000 Units 50,000 Units oral Weekly Demond Frazier MD 50,000 Units at 01/29/24 131 folic acid (FOLVITE) tablet 1 mg 1 mg oral Daily DAGO Medrano 1 mg at 02/01/24 08 gabapentin (NEURONTIN) tablet 800 mg 800 mg oral TID Demond Frazier MD 800 mg at 02/01/24 06 glucagon HCL injection 1 mg 1 mg [...] oral Nightly Demond Frazier MD 2tablet at 01/30/242119 sodium chloride 0.9 % flush 3 mL 3 mL intravenous PRN Jalen Gan MD 3 mL at 01/31/24 1503 sucralfate (CARAFATE) tablet 1 g 1 g oral 4x Daily Demond Frazier MD 1 g at 02/01/24 0802 tamsulosin (FLOMAX) 24 hr capsule 0.4 mg 0.4 mg oral Nightly Demond Frazier MD 0.4 mg at 01/31/24 2126 traZODone (DESYREL) tablet 50 mg 50 mg oral Nightly Demond Frazier MD 50 mg at 02/01/24 0037 O2 Level SpO2: 90 % (02/01/24809) O2 Device: None (Room air) (02/01/24809) O2 Flow Rate (L/min): 0 L/min (02/01/24809) Pain Assessment: 0-10 (02/01/24910) Pain Score: 10 [...] chair, active wound: yes Dialysis? No Language/Cognition: Ukrainian [22] Hearing / Speech / Vision Hearing: [...] precautions: Precautions: Fall (01/31/241939) Cultural considerations: N/A Electrical Design Engineer needed? No [2] BP 121/73 Pulse 75 [...] glargine Tube Feed: Elimination: Urine Amount: Large (02/01/2430) Bowel Incontinence: No (01/29/241999) Unmeasured Stool Occurrence: [...] independent without devices. He had been at [facility] just prior to this adm and amb [...] chair (01/31/24904) Home Equipment: Rolling walker, Cane, Stitch Bonding Machine Drawer In (01/31/24904) Other : No AE/DME needs prior [...] appropriate arrangements made ANG FIGUEROA MD * Leatha Saldivar MD - 01/31/2024 7:40 AM EDT 01/31/2024 Patient Name: Ruth Smith : 1970 Code status: Problem List: Principal Problem: Closed fracture of right hip, initial encounter ([facility] Active Problems: Myah-prosthetic fracture around prosthetic hip [...] MD - 01/31/2024 12:36 PM EDT ATTESTATION: IANG MD, had a [id number] encounter with this patient and completed sharma [...] when arranged. ANG FIGUEROA MD * Leatha Saldivar MD - 01/30/2024 10:23 AM EDT 01/30/2024 Patient Name: Ruth Smith : 1970 Code status: Problem List: Principal Problem: Closed fracture of right hip, initial [place] [place] Active Problems: Myah-prosthetic fracture around prosthetic hip [...] %, 50 mL/hr, Last Rate: 50 mL/hr (01/29/24 991) PRN medications [Transfer Hold] cyclobenzaprine, 10 mg, [...] prophylaxis Monitor patient closely. [facility]* Discharge Planning Note - Sisi Morse RN - 02/03/2024 11:03 AM EDT DISCHARGE PLANNING NOTE Case discussed in daily transition rounds and chart reviewed by CN. Barriers to discharge include none. Discharge Plan remains: Patient to transport to [facility] at 2pm today. CRF sent. CN will continue to follow and is available should any further needs arise. - Sisi Morse RN 02/03/24 11:03 AM [facility]06[facility] Miscellaneous Notes* Discharge Planning Note - Sisi Morse RN - 02/03/2024 11:03 AM EDT DISCHARGE PLANNING NOTE Case discussed in daily transition rounds and chart reviewed by CN. Barriers to discharge include none. Discharge Plan remains: Patient to transport to [facility] at 2pm today. CRF sent. CN will continue to follow and is available should any further needs arise. - Sisi Morse RN 02/03/24 11:03 AM * PT/OT/BAR WAITER/WAITRESS - NALLELY Meneses - 02/03/2024 9:51 AM [...] belt, RW Weight Bearing Status: WBAT RLE Telemetry/Process Tech: Yes Other: fall risk Pain Assessment Pain [...] Goins, SERVIN/L Progressing 02/02/24 0953 Ludy Ireland OTR/Lanie Not Progressing 02/01/24 1548 Azulvanessa Medrano, SERVIN/L Progressing 02/01/24 1328 Azul Mitchell, SERVIN/L Not Progressing 01/31/24 1609 Azul Mitchell, SERVIN/L Progressing Goal Note filed on 02/02/24 0953 by Ludy Ireland OTR/Lanie Evaluation of progress towards goal: Problem: Bed Mobility Dates: Start: 01/31/24 Disciplines: OT Goal: Patient will perform bed mobility with Modified [place] Dates: Start: 01/31/24 Expected End: 02/28/24 Description: Goal Description: Disciplines: OT Outcomes Date/Time User Outcome 02/01/24 1328 Azul Medrano, SERVIN/L Progressing Goal Note filed on 02/01/24 1328 by CHARU NielsenA/Lanie Evaluation of progress towards goal: Problem: Functional Mobility Dates: Start: 01/31/24 Disciplines: OT Goal: Patient will perform functional mobility with Modified [place] Dates: Start: 01/31/24 Expected End: 02/28/24 Description: [...] Goins, SERVIN/L Progressing 02/02/24 0953 Ludy Ireland OTR/Lanie Progressing 02/01/24 [...] Katlin Goins, SERVIN/L Progressing 02/01/24 1548 Azul Medrano, SERVIN/L Progressing 01/31/24 1609 Azul Mitchell, SERVIN/L Not Progressing Goal Note filed on 02/01/24 1548 by CHARU NielsenA/Lanie Evaluation of progress towards goal: Problem: Transfers Dates: Start: 01/31/24 Disciplines: OT Goal: Patient will perform transfers with Modified [place] Dates: Start: 01/31/24 Expected End: 02/28/24 Description: Goal Description: Disciplines: OT Outcomes Date/Time User Outcome 02/03/24 0944 Katlin Goins SERVIN/L Progressing 02/02/24 0953 Ludy Ireland OTR/Lanie Progressing 02/01/24 1548 Azul Mitchell, SERVIN/L Progressing 02/01/24 1328 Azul Mitchell, SERVIN/L Not Progressing 01/31/24 1609 Azul Mitchell, SERVIN/L Progressing Goal Note filed on 02/02/24 0953 by Ludy Ireland OTR/Lanie Evaluation of progress towards goal: Occupational Therapy Care Plan (Resolved) There are no resolved problems. Principal Problem: Closed fracture of right hip, initial encounter ([facility] Active Problems: Myah-prosthetic fracture around prosthetic hip [...] Description: INTERVENTIONS: 1. Encourage patient or legal field representative to report early pain and ask [...] per policy 9. Teach patient or legal field representative interventions for comforting Outcome: Progressing Note: [...] Score of =/> 25 or indicated by [facility] Assessment Goal: Patient should be free from fall Description: Interventions: 1. [place] to environment 2. Hourly rounds addressing the [...] non-skid footwear 11. Teach patient and patient field representative to maintain environment for safety and [...] (cane, walker) within reach 19. Request patient field representative bring adaptive equipment/mobility aids from home or obtain and provide as needed 20. Consult pharmacy regarding effects of med's affecting mobility, cognition, and alternatives 21. Obtain physician order for PT if risk factors associated with mobility are present 22. Obtain physician order for OT as appropriate 23. Utilize diversional activities 24. Educate patient and patient field representative how to maintain a safe environment during visitationtimes (notify nurse prior to leaving bedside) 25. Consider appropriateness of medical or non-medical reception specialist 26. Set up voiding schedule as appropriate [...] hygiene technique 7. Identify and instruct patient/patient field representative in use of appropriate isolation precautionsfor identified infection/symptoms 8. Provide and discuss with patient/patient field representative on educational MDRO sheet 9. Encourage and monitor nutritional status daily and consult heat treater if indicated 10. Implement neutropenic guidelines as [...] this time. Problem: Knowledge Deficit Goal: Patient/patient field representative demonstrates understanding of disease process, treatment [...] transport via PTN confirmed in [facility] to [facility] 6.22.24 at 2:00pm. * PT/OT/BAR WAITER/WAITRESS - WILLARD Banda/Lanie - 02/02/2024 2:02 PM EDT Occupational Therapy CANCEL - Deferred Pt currently off floor for RLE dopplers. Will continue POC as able. * PT/OT/BAR WAITER/WAITRESS - Nas Lima PTA - 02/02/2024 2:00 PM EDT Physical Therapy (P) CANCEL - Deferred (pt. off floor for dopplers-Cont per POC when available) Associated attestation - Carlos Brar PT - [...] Description: INTERVENTIONS: 1. Encourage patient or legal field representative to report early pain and ask [...] per policy 9. Teach patient or legal field representative interventions for comforting Outcome: Progressing Note: [...] at the bedside 7. Instruct patient/ patient field representative about use of safety devices 8. Include patient/ patient field representative in decisions related to safety Outcome: [...] hygiene technique 7. Identify and instruct patient/patient field representative in use of appropriate isolation precautionsfor identified infection/symptoms 8. Provide and discuss with patient/patient field representative on educational MDRO sheet 9. Encourage and monitor nutritional status daily and consult heat treater if indicated 10. Implement neutropenic guidelines as needed 11. Review exposure to history of communicable disease and recent travel history on admission 12. Encourage annual influenza vaccine 13. Encourage pneumonia vaccine Outcome: Progressing Note: Evaluation of progress towards goal: Skin integrity remains in stable condition; remains w/o ss of infection, fever, pain, or increased discomfort. Problem: Knowledge Deficit Goal: Patient/patient field representative demonstrates understanding of disease process, treatment [...] supplement as ordered 13. Collaborate with clinical heat treater 14. Include patient/ patient's field representative in decisions related to nutrition Outcome: [...] discharge planning process 5. Communicate referral to personal development educator as appropriate 6. Communicate referral to heat treater as appropriate 7. Collaborate with case management/social media coordinator for discharge needs Outcome: Progressing Note: Evaluation of progress towards goal: Discharge planning in process; will continue to monitor for discharge needs. Problem: Moderate - High Risk Fall Score Description: [place] Fall Score of =/> 25 or indicated by [facility] Assessment Goal: Patient should be free from fall Description: Interventions: 1. [place] to environment 2. Hourly rounds addressing the [...] non-skid footwear 11. Teach patient and patient field representative to maintain environment for safety and [...] (cane, walker) within reach 19. Request patient field representative bring adaptive equipment/mobility aids from home or obtain and provide as needed 20. Consult pharmacy regarding effects of med's affecting mobility, cognition, and alternatives 21. Obtain physician order for PT if risk factors associated with mobility are present 22. Obtain physician order for OT as appropriate 23. Utilize diversional activities 24. Educate patient and patient field representative how to maintain a safe environment during visitationtimes (notify nurse prior to leaving bedside) 25. Consider appropriateness of medical or non-medical reception specialist 26. Set up voiding schedule as appropriate (every 2 hours) Outcome: Progressing Note: Evaluation of progress towards goal: Call light within reach. Remains free of fall or injury.Environment free of clutter. * Discharge Planning Note - JEWEL Harrington - 02/02/2024 12:06 PM EDT DISCHARGE PLANNING NOTE Patient discussed today in daily transition rounds. Current Discharge Plan; [facility]- [place]. Current Barriers: pain control. SW requested transport for 2pm tomorrow for DC. - JEWEL HARRINGTON 02/02/24 12:06 PM * PT/OT/BAR WAITER/WAITRESS - Nas Lima PTA - 02/02/2024 8:13 [...] belt, RW Weight Bearing Status: WBAT RLE Telemetry/Process Tech: Yes Other: fall risk Pain Assessment Pain [...] for safety and standing support during ambulation-Pt. demenoch major difficulties completing short range distance due [...] Date/Time User Outcome 02/02/24 0937 Nas Lima, COAGULATING BATH MIXER Progressing 02/01/24 1525 Nick Fernandez PTA Progressing [...] Outcomes Date/Time User Outcome 02/02/24 0937 Nas Clarence, COAGULATING BATH MIXER Not Progressing 02/01/24 1525 Nick Fernandez PTA [...] Date/Time User Outcome 02/02/24 0937 Nas Lima, COAGULATING BATH MIXER Not Progressing 02/01/24 1525 Nick Fernandez, SHERYL Progressing 02/01/24 1140 Nick Fernandez PTA Not [...] Date/Time User Outcome 02/02/24 0937 Nas Lima, COAGULATING BATH MIXER Progressing 02/01/24 1525 Nick Fernandez PTA Progressing [...] Date/Time User Outcome 02/02/24 0937 Nas Lima, COAGULATING BATH MIXER Progressing 02/01/24 1525 Nick Fernandez PTA Progressing 02/01/24 1140 Nick Fernandez PTA Not Progressing 01/31/24 1545 Nick Fernandez PTA Progressing Goal Note filed on 02/01/24 1525 by Nick Fernandez PTA Evaluation of progress towards goal: Physical Therapy Care Plan (Resolved) There are no resolved problems. Principal Problem: Closed fracture of right hip, initial encounter ([facility]) Active Problems: Myah-prosthetic fracture around prosthetic hip Associated attestation - Carlos Brar PT - 02/02/2024 3:00 PM EDT I have reviewed and agree with this note and education documentation for this visit. * PT/OT/BAR WAITER/WAITRESS - Ludy Ireland OTR/Lanie - 02/02/2024 8:13 [...] belt Weight Bearing Status: WBAT Rt LE Telemetry/Process Tech: Yes Oxygen Used: room air Other: fall [...] Patient will perform bed mobility with Modified [place] Dates: Start: 01/31/24 Expected End: 02/28/24 Description: Goal Description: Disciplines: OT Outcomes Date/Time User Outcome 02/01/24 1328 Azul Mitchell, SERVIN/L Progressing Goal Note filed on 02/01/24 1328 by Azul Medrano SERVIN/L Evaluation of progress towards goal: Problem: Functional Mobility Dates: Start: 01/31/24 Disciplines: OT Goal: Patient will perform functional mobility with Modified [place] Dates: Start: 01/31/24 Expected End: 02/28/24 Description: [...] Date/Time User Outcome 02/02/24 0953 Ludy Ireland OTR/L Not Progressing [...] Goal: Patient will perform transfers with Modified [place] Dates: Start: 01/31/24 Expected End: 02/28/24 Description: Goal Description: Disciplines: OT Outcomes Date/Time User Outcome 02/02/24 0953 WILLARD Banda/Lanie Progressing 02/01/24 1548 Azul Medrano SERVIN/L Progressing 02/01/24 1328 Azul Mitchell, SERVIN/L Not Progressing 01/31/24 1609 Azulvanessa Medrano, SERVIN/L Progressing Goal Note filed on 02/02/24 0953 by WILLARD Banda/Lanie Evaluation of progress towards goal: Occupational Therapy Care Plan (Resolved) There are no resolved problems. Principal Problem: Closed fracture of right hip, initial encounter ([facility]) Active Problems: Myah-prosthetic fracture around prosthetic hip * Plan of Care - Lacey Singer RN - 02/01/2024 10:15 PM EDT Problem: Pain Goal: Patient goal is pain score less than 4, able to rest, and participant in treatment plan as appropriate Description: INTERVENTIONS: 1. Encourage patient or legal field representative to report early pain and ask [...] per policy 9. Teach patient or legal field representative interventions for comforting Outcome: Progressing Note: [...] at the bedside 7. Instruct patient/ patient field representative about use of safety devices 8. Include patient/ patient field representative in decisions related to safety Outcome: Progressing Note: Evaluation of progress towards goal: Assessed patient's risk for falls and implemented fall prevention plan of care per policy. Provided and maintained a safe environment. Pt remains free from falls and injury during this stay. * PT/OT/BAR WAITER/WAITRESS - MALATHI Nielsen/Lanie - 02/01/2024 3:49 PM EDT Occupational Therapy [...] RW Weight Bearing Status: WBAT Rt LE Telemetry/Process Tech: Yes Oxygen Used: room air Other: fall [...] OT Outcomes Date/Time User Outcome 02/01/24 1548 Azulvanessa Medrano, SERVIN/L Progressing 02/01/24 1328 Azul Mitchell, SERVIN/L Not Progressing 01/31/24 1609 Azulgin Medrano, SERVIN/L Progressing Goal Note filed on 02/01/24 1548 by CHARU NielsenA/Lanie Evaluation of progress towards goal: Problem: Bed Mobility Dates: Start: 01/31/24 Disciplines: OT Goal: Patient will perform bed mobility with Modified [place] Dates: Start: 01/31/24 Expected End: 02/28/24 Description: Goal Description: Disciplines: OT Outcomes Date/Time User Outcome 02/01/24 1328 Azul Medrano, SERVIN/L Progressing Goal Note filed on 02/01/24 1328 by Azul Medrano SERVIN/Lanie Evaluation of progress towards goal: Problem: Functional Mobility Dates: Start: 01/31/24 Disciplines: OT Goal: Patient will perform functional mobility with Modified [place] Dates: Start: 01/31/24 Expected End: 02/28/24 Description: Goal Description: Disciplines: OT Outcomes Date/Time User Outcome 02/01/24 1548 Azul Mitchell, SERVIN/L Progressing 02/01/24 1328 Azul Mitchell, SERVIN/L Not Progressing 01/31/24 1609 Azul Mitchell, SERVIN/L Progressing Goal Note filed on 02/01/24 1548 by CHARU NielsenA/Lanie Evaluation of progress towards goal: Problem: Other [...] Goal: Patient will perform transfers with Modified [place] Dates: Start: 01/31/24 Expected End: 02/28/24 Description: Goal Description: Disciplines: OT Outcomes Date/Time User Outcome 02/01/24 1548 NALLELY Nielsen Progressing 02/01/24 1328 NALLELY Nielsen Not Progressing 01/31/24 1609 NALLELY Nielsen Progressing Goal Note filed on 02/01/24 1548 by NALLELY Nielsen Evaluation of progress towards goal: Occupational Therapy Care Plan (Resolved) There are no resolved problems. Principal Problem: Closed fracture of right hip, initial encounter ([facility]) Active Problems: Myah-prosthetic fracture around prosthetic hip Associated attestation - Ludy Ireland OTR/L - 02/02/2024 7:41 AM EDT I have reviewed and agree with this note and education documentation for this visit. * PT/OT/BAR WAITER/WAITRESS - Nick Fernandez PTA - 02/01/2024 3:39 [...] 6 Clicks: Basic Mobility Raw Score: 11 [facility] G Code Modifier: CL Patient Response to [...] RW Weight Bearing Status: WBAT Rt LE Telemetry/Process Tech: Yes Oxygen Used: room air Other: fall [...] PT Outcomes Date/Time User Outcome 02/01/24 1525 Nikc Fernandez PTA Progressing 02/01/24 1140 Nick Fernandez PTA Not Progressing 01/31/24 1545 Nick Fernandez PTA Progressing Goal Note filed on 02/01/24 1525 by Nick Fernandez PTA Evaluation of progress towards goal: Physical Therapy Care Plan (Resolved) There are no resolved problems. Principal Problem: Closed fracture of right hip, initial encounter ([facility]) Active Problems: Myah-prosthetic fracture around prosthetic hip Associated attestation - Lindsay Infante, PT - 02/01/2024 3:54 PM EDT I have reviewed and agree with this note and education documentation for this visit. * PT/OT/BAR WAITER/WAITRESS - MALATHI Nielsen/Lanie - 02/01/2024 1:29 PM [...] None Scoring Daily Activity Raw Score: 17 [facility] G Code Modifier: CK OT Treatment/Interventions: ADL [...] RW Weight Bearing Status: WBAT Rt LE Telemetry/Process Tech: Yes Oxygen Used: room air Other: fall [...] Outcomes Date/Time User Outcome 02/01/24 1328 CHARU NielsenA/L Not Progressing 01/31/24 1609 Azul Medrano SERVIN/L Progressing Goal Note filed on 02/01/24 1328 by MALATHI Nielsen/Lanie Evaluation of progress towards goal: Problem: Bed Mobility Dates: Start: 01/31/24 Disciplines: OT Goal: Patient will perform bed mobility with Modified [place] Dates: Start: 01/31/24 Expected End: 02/28/24 Description: Goal Description: Disciplines: OT Outcomes Date/Time User Outcome 02/01/24 1328 CHARU NielsenA/Lanie Progressing Goal Note filed on 02/01/24 1328 by MALATHI Nielsen/Lanie Evaluation of progress towards goal: Problem: Functional Mobility Dates: Start: 01/31/24 Disciplines: OT Goal: Patient will perform functional mobility with Modified [place] Dates: Start: 01/31/24 Expected End: 02/28/24 Description: [...] 1328 MALATHI Nielsen/Lanie Not Progressing 01/31/24 1609 CHARU NielsenA/Lanie Progressing Goal Note filed on 02/01/24 1328 by MALATHI Nielsen/Lanie Evaluation of progress towards goal: Problem: Standing Balance Dates: Start: 01/31/24 Disciplines: OT Goal: Improve balance to good Dates: Start: 01/31/24 Expected End: 02/28/24 Description: Static Dynamic Disciplines: OT Outcomes Date/Time User Outcome 02/01/24 1328 MALATHI Nielsen/Lanie Not Progressing 01/31/24 1609 MALATHI Nielsen/Lanie Progressing Goal Note filed on 02/01/24 1328 by MALATHI Nielsen/Lanie Evaluation of progress towards goal: Problem: Strength Dates: Start: 01/31/24 Disciplines: OT Goal: Improve strength Dates: Start: 01/31/24 Expected End: 02/28/24 Description: Of extremity/ location: Tolerate bilat UE exercises to increase strength and endurancefor self care tasks To facilitate: Disciplines: OT Outcomes Date/Time User Outcome 01/31/24 1609 MALATHI Nielsen/Lanie Not Progressing Goal Note filed on 01/31/24 1609 by MALATHI Nielsen/Lanie Evaluation of progress towards goal: Problem: Transfers Dates: Start: 01/31/24 Disciplines: OT Goal: Patient will perform transfers with Modified [place] Dates: Start: 01/31/24 Expected End: 02/28/24 Description: Goal Description: Disciplines: OT Outcomes Date/Time User Outcome 02/01/24 1328 MALATHI Nielsen/Lanie Not Progressing 01/31/24 1609 MALATHI Nielsen/Lanie Progressing Goal Note filed on 02/01/24 1328 by NALLELY Nielsen Evaluation of progress towards goal: Occupational Therapy Care Plan (Resolved) There are no resolved problems. Principal Problem: Closed fracture of right hip, initial encounter ([facility]) Active Problems: Myah-prosthetic fracture around prosthetic hip Associated attestation - Ludy Ireland OTR/L - 02/01/2024 2:58 PM EDT I have reviewed and agree with this note and education documentation for this visit. * PT/OT/BAR WAITER/WAITRESS - Nick Fernandez PTA - 02/01/2024 11:57 [...] Weight Bearing Status: (P) WBAT Rt LE Telemetry/Process Tech: (P) Yes Oxygen Used: (P) room air [...] 1140 Nick Fernandez PTA Not Progressing 01/31/24 4746 Nick Fernandez PTA Progressing Goal Note filed on 02/01/24 1140 by Nick Fernandez PTA Evaluation of progress towards goal: Physical Therapy Care Plan (Resolved) There are no resolved problems. Principal Problem: Closed fracture of right hip, initial encounter ([facility]) Active Problems: Myah-prosthetic fracture around prosthetic hip [...] Description: INTERVENTIONS: 1. Encourage patient or legal field representative to report early pain and ask [...] per policy 9. Teach patient or legal field representative interventions for comforting Outcome: Progressing Note: [...] at the bedside 7. Instruct patient/ patient field representative about use of safety devices 8. Include patient/ patient field representative in decisions related to safety Outcome: [...] Description: INTERVENTIONS: 1. Encourage patient or legal field representative to report early pain and ask [...] per policy 9. Teach patient or legal field representative interventions for comforting Outcome: Progressing Note: [...] at the bedside 7. Instruct patient/ patient field representative about use of safety devices 8. Include patient/ patient field representative in decisions related to safety Outcome: [...] hygiene technique 7. Identify and instruct patient/patient field representative in use of appropriate isolation precautionsfor identified infection/symptoms 8. Provide and discuss with patient/patient field representative on educational MDRO sheet 9. Encourage and monitor nutritional status daily and consult heat treater if indicated 10. Implement neutropenic guidelines as needed 11. Review exposure to history of communicable disease and recent travel history on admission 12. Encourage annual influenza vaccine 13. Encourage pneumonia vaccine Outcome: Progressing Note: Evaluation of progress towards goal: Pt afebrile at this time, continue to monitor for signs infection Problem: Knowledge Deficit Goal: Patient/patient field representative demonstrates understanding of disease process, treatment plan,medications, and discharge instructions Description: INTERVENTIONS 1. Complete learning assessment and assess knowledge base 2. Provide teaching at level of understanding 3. Provide teaching via preferred learning method(s) Outcome: Progressing Note: Evaluation of progress towards goal: POC discussed with patient. Questions answered PRN. * PT/OT/BAR WAITER/WAITRESS - NALLELY Nielsen 01/31/2024 4:10 PM EDT Occupational Therapy Treatment [...] RW Weight Bearing Status: WBAT Rt LE Telemetry/Process Tech: Yes Oxygen Used: room air Other: fall [...] Disciplines: OT Outcomes Date/Time User Outcome 01/31/24 4619 NALLELY Nielsen Progressing Goal Note filed on 01/31/24 1603 by NALLELY Nielsen Evaluation of progress towards goal: Problem: Bed Mobility Dates: Start: 01/31/24 Disciplines: OT Goal: Patient will perform bed mobility with Modified [place] Dates: Start: 01/31/24 Expected End: 02/28/24 Description: Goal Description: Disciplines: OT Problem: Functional Mobility Dates: Start: 01/31/24 Disciplines: OT Goal: Patient will perform functional mobility with Modified [place] Dates: Start: 01/31/24 Expected End: 02/28/24 Description: [...] Goal: Patient will perform transfers with Modified [place] Dates: Start: 01/31/24 Expected End: 02/28/24 Description: Goal Description: Disciplines: OT Outcomes Date/Time User Outcome 01/31/24 1609 NALLELY Nielsen Progressing Goal Note filed on 01/31/24 1609 by NALLELY Nielsen Evaluation of progress towards goal: Occupational Therapy Care Plan (Resolved) There are no resolved problems. Principal Problem: Closed fracture of right hip, initial encounter ([facility]) Active Problems: Myah-prosthetic fracture around prosthetic hip Associated attestation - Ludy Ireland OTR/L - 02/01/2024 7:28 AM EDT I have reviewed and agree with this note and education documentation for this visit. * PT/OT/BAR WAITER/WAITRESS - Nick Fernandez PTA - 01/31/2024 3:56 [...] 6 Clicks: Basic Mobility Raw Score: 13 [facility] G Code Modifier: CK Patient Response to Treatment: Slow progress, decreased activity tolerance Assessment Patient Assessment Patient Response to Treatment: Slow progress, decreased activity tolerance Visit RN Communication: Yes Medical Record Reviewed: Yes PT Type of Visit: Treatment Precautions Activity: Up to chair TID and ambulate BID Equipment: gait belt, RW Weight Bearing Status: WBAT Rt LE Telemetry/Process Tech: Yes Oxygen Used: room air Other: fall [...] Disciplines: PT Outcomes Date/Time User Outcome 01/31/24 4032 Nick Fernandez PTA Progressing Goal Note filed [...] Closed fracture of right hip, initial encounter ([facility]) Active Problems: Myah-prosthetic fracture around prosthetic hip Associated attestation - Lindsay Infante, PT - 01/31/2024 4:14 PM EDT I have reviewed and agree with this note and education documentation for this visit. * Discharge Planning Note - Alexandra Eric - 01/31/2024 3:48 PM EDT DISCHARGE PLANNING NOTE Referral sent to [facility], a division of [facility] P# [phone] [calling report];/[facility] (P# [calling report]; F# ) * Discharge Planning Note - JEWEL Crenshaw - 01/31/2024 3:13 PM EDT Images from the original note were not included. DISCHARGE PLANNING NOTE SW met with patient introduce self & role. [facility]. Pt underwent IM nail on 01/18/24 and pt discharged to IP rehab on 01/22/24. Pt was transferred back to [facility] on 01/28 after fall at rehab [...] and pt would like to return to [place] IP rehab. Referral was sent, await confirmation they can accept pt back. Services Requested: Services Requested Acute Rehab Name: [facility] . Patient choice offered: Other (comment) (pt current with provider) List Provided: Other (comment) Initial DC Assessment Completed: Yes Patient Goals: Goals: Goals <enter goal here> (pt-stated) Evaluation of progress towards goal: pt plans to return [facility] [place] to [place] mobility and get home (pt-stated) Evaluation of progress towards goal: Participating in therapy - JEWEL Crenshaw 01/31/24 3:18 PM * PT/OT/BAR WAITER/WAITRESS - Lindsay Infante, PT - 01/31/2024 1:02 [...] from lisinopril Chronic pain disorder Colon cancer ([facility] COPD (chronic obstructive pulmonary disease) ([facility] Depression Diabetes mellitus type 2, controlled ([facility]) Fibromyalgia, primary Fracture of right hip, closed, initial encounter ([facility]) 01/17/2024 GERD (gastroesophageal reflux disease) Hyperlipidemia Hypertension Insulin-treated type 2 diabetes mellitus ([facility]) Joint pain Kidney stones Liver disease Low back pain Neck pain Obesity Osteoarthritis Visual impairment Past Surgical History: Procedure Laterality Date BACK SURGERY COLON SURGERY resection, 2018, [facility] DAVINCI REPAIR HERNIA VENTRAL N/A 10/27/2021 Performed by Ridge Cedillo MD at [facility] DENTAL SURGERY pt had all teeth removed HERNIA REPAIR x's 2 INSERTION INTRAMEDULLARY NAIL FEMUR Right 01/30/2024 Performed by Ang Figueroa MD at [facility] INSERTION INTRAMEDULLARY NAIL FEMUR-TFNA HIP FX Right 01/18/2024 Performed by Ang Figueroa MD at [facility]THOPEDIC SURGERY 2008 foot, infected foot REMOVAL HARDWARE INTRAMEDULLARY NAIL/KATERYNA FEMUR Right 01/30/2024 Performed by Ang Figueroa MD at [facility] 6 Clicks: Basic Mobility Turning from your [...] RW Weight Bearing Status: WBAT Rt LE Telemetry/Process Tech: Yes Other: fall risk Pain Assessment Pain [...] Shower chair Home Equipment: Rolling walker, Cane, Stitch Bonding Machine Drawer In Prior Function Lives With: Alone Receives Help From: Neighbor Level of Mobility: Independent with ADLs and functional transfers or gait Homemaking Assistance: Independent (Except for driving) Other: Prior to injury pt completely independent without devices. He had been at [facility] just prior to this adm and amb [...] Closed fracture of right hip, initial encounter ([facility]) Active Problems: Myah-prosthetic fracture around prosthetic hip * PT/OT/BAR WAITER/WAITRESS - Thalia Han OTR/L - 01/31/2024 11:28 AM EDT Occupational Therapy [...] from lisinopril Chronic pain disorder Colon cancer ([facility]) COPD (chronic obstructive pulmonary disease) ([facility]) Depression Diabetes mellitus type 2, controlled ([facility]) Fibromyalgia, primary Fracture of right hip, closed, initial encounter ([facility]) 01/17/2024 GERD (gastroesophageal reflux disease) Hyperlipidemia Hypertension Insulin-treated type 2 diabetes mellitus ([facility]) Joint pain Kidney stones Liver disease Low back pain Neck pain Obesity Osteoarthritis Visual impairment Past Surgical History: Procedure Laterality Date BACK SURGERY COLON SURGERY resection, 2018, [facility] DAVINCI REPAIR HERNIA VENTRAL N/A 10/27/2021 Performed by Ridge Cedillo MD at [facility] DENTAL SURGERY pt had all teeth removed HERNIA REPAIR x's 2 INSERTION INTRAMEDULLARY NAIL FEMUR Right 01/30/2024 Performed by Ang Figueroa MD at [facility] INSERTION INTRAMEDULLARY NAIL FEMUR-TFNA HIP FX Right 01/18/2024 Performed by Ang Figueroa MD at [facility]TH[facility]EDIC SURGERY 2008 foot, infected foot REMOVAL HARDWARE INTRAMEDULLARY NAIL/KATERYNA FEMUR Right 01/30/2024 Performed by Ang Figueroa MD at [facility] Chief Complaint Patient presents with Fall Evaluation [...] RW Weight Bearing Status: WBAT Rt LE Telemetry/Process Tech: Yes Oxygen Used: room air Other: fall [...] Shower chair Home Equipment: Rolling walker, Cane, Stitch Bonding Machine Drawer In Other : No AE/DME needs prior to [...] Patient will perform bed mobility with Modified [place] Dates: Start: 01/31/24 Expected End: 02/28/24 Description: Goal Description: Disciplines: OT Problem: Functional Mobility Dates: Start: 01/31/24 Disciplines: OT Goal: Patient will perform functional mobility with Modified [place] Dates: Start: 01/31/24 Expected End: 02/28/24 Description: [...] Goal: Patient will perform transfers with Modified [place] Dates: Start: 01/31/24 Expected End: 02/28/24 Description: Goal Description: Disciplines: OT Occupational Therapy Care Plan (Resolved) There are no resolved problems. Principal Problem: Closed fracture of right hip, initial encounter ([facility]) Active Problems: Myah-prosthetic fracture around prosthetic hip * Plan of Care - Mia Goddard RN - 01/31/2024 9:06 AM EDT Problem: Pain Goal: Patient goal is pain score less than 4, able to rest, and participant in treatment plan as appropriate Description: INTERVENTIONS: 1. Encourage patient or legal field representative to report early pain and ask [...] per policy 9. Teach patient or legal field representative interventions for comforting Outcome: Progressing Note: [...] Description: INTERVENTIONS: 1. Encourage patient or legal field representative to report early pain and ask [...] per policy 9. Teach patient or legal field representative interventions for comforting Outcome: Progressing Note: [...] at the bedside 7. Instruct patient/ patient field representative about use of safety devices 8. Include patient/ patient field representative in decisions related to safety Outcome: [...] hygiene technique 7. Identify and instruct patient/patient field representative in use of appropriate isolation precautionsfor identified infection/symptoms 8. Provide and discuss with patient/patient field representative on educational MDRO sheet 9. Encourage and monitor nutritional status daily and consult heat treater if indicated 10. Implement neutropenic guidelines as needed 11. Review exposure to history of communicable disease and recent travel history on admission 12. Encourage annual influenza vaccine 13. Encourage pneumonia vaccine Outcome: Progressing Note: Evaluation of progress towards goal: Pt afebrile at this time, continue to monitor for signs infection Problem: Knowledge Deficit Goal: Patient/patient field representative demonstrates understanding of disease process, treatment [...] Description: INTERVENTIONS: 1. Encourage patient or legal field representative to report early pain and ask [...] per policy 9. Teach patient or legal field representative interventions for comforting Outcome: Progressing Note: Evaluation of progress towards goal: Encourage patient or legal field representative to report early pain and ask [...] at the bedside 7. Instruct patient/ patient field representative about use of safety devices 8. Include patient/ patient field representative in decisions related to safety Outcome: [...] hygiene technique 7. Identify and instruct patient/patient field representative in use of appropriate isolation precautionsfor identified infection/symptoms 8. Provide and discuss with patient/patient field representative on educational MDRO sheet 9. Encourage and monitor nutritional status daily and consult heat treater if indicated 10. Implement neutropenic guidelines as [...] and monitor nutritional status daily and consult heat treater if indicated. Encourage annual influenza vaccine and pneumonia vaccine. * Op Note - Ang Figueroa MD - 01/30/2024 9:23 AM EDT DATE OF OPERATION: January 30, 2024 PREOPERATIVE DIAGNOSIS: 1. right intertrochanteric hip fracture with new periprosthetic subtrochanteric fracture after a second fall at rehab POSTOPERATIVE DIAGNOSIS: 1. Same OPERATION: 1. IM nail right intertrochanteric/subtrochanteric hip fracture.- 25533 2. Removal hardware Right femur - SURGEON: Ang Figueroa MD PRINTING WORKER SUPERVISOR: Jalen Gan MD ANESTHESIA: General. MEDICATIONS: vanc [...] , damage to normal structure, PE, DVT, RI, stroke, nonunion, malunion, chronic pain, arthrosis, arthritis, [...] was then placed by using a perfect [place] technique with fluoroscopy. The drill bit was [...] time of surgery. ANG FIGUEROA MD * PT/OT/BAR WAITER/WAITRESS - WILLARD Chavira/Lanie - 01/30/2024 8:43 AM EDT Occupational Therapy CANCEL - Deferred OT attempted. Pt off floor at surgery. Will check back as able. * PT/OT/BAR WAITER/WAITRESS - Lindsay Infante PT - 01/30/2024 8:41 [...] Description: INTERVENTIONS: 1. Encourage patient or legal field representative to report early pain and ask [...] per policy 9. Teach patient or legal field representative interventions for comforting Outcome: Progressing Note: [...] at the bedside 7. Instruct patient/ patient field representative about use of safety devices 8. Include patient/ patient field representative in decisions related to safety Outcome: [...] hygiene technique 7. Identify and instruct patient/patient field representative in use of appropriate isolation precautionsfor identified infection/symptoms 8. Provide and discuss with patient/patient field representative on educational MDRO sheet 9. Encourage and monitor nutritional status daily and consult heat treater if indicated 10. Implement neutropenic guidelines as needed 11. Review exposure to history of communicable disease and recent travel history on admission 12. Encourage annual influenza vaccine 13. Encourage pneumonia vaccine Outcome: Progressing Note: Evaluation of progress towards goal: Pt afebrile at this time, continue to monitor for signs infection Problem: Knowledge Deficit Goal: Patient/patient field representative demonstrates understanding of disease process, treatment plan,medications, and discharge instructions Description: INTERVENTIONS 1. Complete learning assessment and assess knowledge base 2. Provide teaching at level of understanding 3. Provide teaching via preferred learning method(s) Outcome: Progressing Note: Evaluation of progress towards goal: POC discussed with patient. Questions answered PRN. documented in this [facility]06[facility] Progress note* PT/OT/BAR WAITER/WAITRESS - MALATHI Meneses/Lanie - 02/03/2024 9:51 AM [...] belt, RW Weight Bearing Status: WBAT RLE Telemetry/Process Tech: Yes Other: fall risk Pain Assessment Pain [...] OT Outcomes Date/Time User Outcome 02/03/24 0944 MALATHI Meneses/Lanie Progressing 02/02/24 0953 Ludy Beka, OTR/L Not Progressing 02/01/24 1548 Azul Mitchell, SERVIN/L Progressing 02/01/24 1328 Azul Mitchell, SERVIN/L Not Progressing 01/31/24 1609 Azul Imtchell, SERVIN/L Progressing Goal Note filed on 02/02/24 0953 by Ludy Ireland OTR/Lanie Evaluation of progress towards goal: Problem: Bed Mobility Dates: Start: 01/31/24 Disciplines: OT Goal: Patient will perform bed mobility with Modified [place] Dates: Start: 01/31/24 Expected End: 02/28/24 Description: Goal Description: Disciplines: OT Outcomes Date/Time User Outcome 02/01/24 1328 Azul Mitchell, SERVIN/L Progressing Goal Note filed on 02/01/24 1328 by Azul Medrano SERVIN/L Evaluation of progress towards goal: Problem: Functional Mobility Dates: Start: 01/31/24 Disciplines: OT Goal: Patient will perform functional mobility with Modified [place] Dates: Start: 01/31/24 Expected End: 02/28/24 Description: Goal Description: Disciplines: OT Outcomes Date/Time User Outcome 02/03/24 0944 Katlin Goins SERVIN/L Progressing 02/01/24 1548 Azul Medrano SERVIN/L Progressing 02/01/24 1328 Azul Mitchell, SERVIN/L [...] 0944 Katlin Goins SERVIN/L Progressing 02/02/24 0953 Ludy Ireland OTR/L Progressing 02/01/24 1548 Azul Mitchell, SERVIN/L Progressing 02/01/24 1328 Azul Mitchell, SERIVN/L Not Progressing 01/31/24 1609 Azul Mitchell, SERVIN/L Progressing Goal Note filed on 02/02/24 0953 by Ludy Ireland OTR/Lanie Evaluation of progress towards goal: Problem: Standing Balance Dates: Start: 01/31/24 Disciplines: OT Goal: Improve balance to good Dates: Start: 01/31/24 Expected End: 02/28/24 Description: Static Dynamic Disciplines: OT Outcomes Date/Time User Outcome 02/03/24 0944 Katlin Goins, SERVIN/L Progressing 02/02/24 0953 Ludy Ireland OTR/Lanie Not Progressing 02/01/24 1548 Azul Mitchell, SERVIN/L Progressing 02/01/24 1328 Azul Mitchell, SERVIN/L Not Progressing 01/31/24 1609 Azul Mitchell, ESRVIN/L Progressing Goal Note filed on 02/02/24 0953 [...] Note filed on 02/01/24 1548 by Azul Medrano, SERVIN/L Evaluation of progress towards goal: Problem: Transfers Dates: Start: 01/31/24 Disciplines: OT Goal: Patient will perform transfers with Modified [place] Dates: Start: 01/31/24 Expected End: 02/28/24 Description: Goal Description: Disciplines: OT Outcomes Date/Time User Outcome 02/03/24 0944 Katlin Goins, SERVIN/L Progressing 02/02/24 0953 Ludy Ireland OTR/Lanie Progressing 02/01/24 1548 CHARU NielsenA/L Progressing 02/01/24 1328 CHARU NielsenA/L Not Progressing 01/31/24 1609 CHARU NielsenA/L Progressing Goal Note filed on 02/02/24 0953 by WILLARD Banda/Lanie Evaluation of progress towards goal: Occupational Therapy Care Plan (Resolved) There are no resolved problems. Principal Problem: Closed fracture of right hip, initial encounter ([facility]) Active Problems: Myah-prosthetic fracture around prosthetic hip Associated attestation - Ludy Dey OTR/L - 02/03/2024 11:43 AM EDT I have reviewed and agree with this note and education documentation for this visit. [facility] Plan of care note* Plan of Care - Lian Silva RN - 02/03/2024 8:45 AM EDT Problem: Pain Goal: Patient goal is pain score less than 4, able to rest, and participant in treatment plan as appropriate Description: INTERVENTIONS: 1. Encourage patient or legal field representative to report early pain and ask [...] per policy 9. Teach patient or legal field representative interventions for comforting Outcome: Progressing Note: [...] be free from fall Description: Interventions: 1. [place] to environment 2. Hourly rounds addressing the [...] non-skid footwear 11. Teach patient and patient field representative to maintain environment for safety and [...] (cane, walker) within reach 19. Request patient field representative bring adaptive equipment/mobility aids from home or obtain and provide as needed 20. Consult pharmacy regarding effects of med's affecting mobility, cognition, and alternatives 21. Obtain physician order for PT if risk factors associated with mobility are present 22. Obtain physician order for OT as appropriate 23. Utilize diversional activities 24. Educate patient and patient field representative how to maintain a safe environment during visitationtimes (notify nurse prior to leaving bedside) 25. Consider appropriateness of medical or non-medical reception specialist 26. Set up voiding schedule as appropriate (every 2 hours) Outcome: Progressing Note: Evaluation of progress towards goal: Call light within reach. Remains free of fall or injury.Environment free of clutter. [facility]06-22-2024 Hospital course Narrative* Leatha Saldivar MD - 02/03/2024 8:30 AM EDT Images [...] Closed fracture of right hip, initial encounter ([facility] Active Problems: Myah-prosthetic fracture around prosthetic hip CONSULTANTS: Consulting Providers Provider Service Specialty [facility] -- Hematology MD Rubén Puri Physical Medicine and Rehabilitation Physical Medicine and Rehabilitation PCP: Patient Care Team: Jd Du PA-C as PCP - General (Physician Supervisor [employer]) PROCEDURES PERFORMED: right intertrochanteric/subtrochanteric hip fracture and [...] alignment. No evidence of immediate hardware complication. Workstation:[id number] by Marc Paredes MD on 01/30/2024 1:43 [...] the proximal femoral fracture. Finalized by Jun rOtega MD on 01/30/2024 1:28 PM X-ray femur [...] 1500 mL Follow up: Jd Du PA-C [address] [place] [address] Please arrange follow-up with primary care 1 [...] pressure medications if systolic blood pressure greater [id number] or less than 110 or heart rate [...] at 8:15 a.m. regarding recent surgery. Telephone number:[phone] 9. No driving and no operating heavy machinery For most accurate medication list, please review the discharge medication summary. 34 minutes were spent on discharging this patient. Electronically signed by: Leatha Saldivar MD documented in this encounterRiver[facility] Institute06-22-2024 Plan of care note * Plan of [...] hygiene technique 7. Identify and instruct patient/patient field representative in use of appropriate isolation precautionsfor identified infection/symptoms 8. Provide and discuss with patient/patient field representative on educational MDRO sheet 9. Encourage and monitor nutritional status daily and consult heat treater if indicated 10. Implement neutropenic guidelines as [...] this time. Problem: Knowledge Deficit Goal: Patient/patient field representative demonstrates understanding of disease process, treatment plan,medications, and discharge instructions Description: INTERVENTIONS 1. Complete learning assessment and assess knowledge base 2. Provide teaching at level of understanding 3. Provide teaching via preferred learning method(s) Outcome: Progressing Note: Evaluation of progress towards goal: Patient agrees with treatment plan at this time. [facility] Progress note* Discharge Planning Note - Araceli Motta - 02/02/2024 3:32 PM EDT DISCHARGE PLANNING NOTE [facility] transport via PTN confirmed in [facility] to [place] 6. at 2:00pm. [facility] Progress note* PT/OT/BAR WAITER/WAITRESS - WILLARD Banda/Lanie - 02/02/2024 2:02 PM EDT Occupational Therapy CANCEL - Deferred Pt currently off floor for RLE dopplers. Will continue POC as able. [facility] Progress note* PT/OT/BAR WAITER/WAITRESS - Nas Lima, COAGULATING BATH MIXER - 02/02/2024 2:00 PM EDT Physical Therapy (P) CANCEL - Deferred (pt. off floor for dopplers-Cont per POC when available) Associated attestation - Carlso Brar, PT - 02/02/2024 3:00 PM EDT I have reviewed and agree with this note and education documentation for this visit. [facility] Nurse Note* Gurjit Drummond RN - 02/02/2024 1:50 PM EDT Pt here for Vascular. No needs voiced at present time. [facility] Nurse Note* Gurjti Drummond RN - 02/02/2024 1:50 PM EDT [...] gauge, 1.75 inch catheter. Thank you, Alistair Richards, RN Rapid Response: [facility] documented in this encounterRiverview [facility] Institute06-21-2024 Plan of care note * Plan of Care - Lian Silva RN - 02/02/2024 1:10 PM EDT Problem: Pain Goal: Patient goal is pain score less than 4, able to rest, and participant in treatment plan as appropriate Description: INTERVENTIONS: 1. Encourage patient or legal field representative to report early pain and ask [...] per policy 9. Teach patient or legal field representative interventions for comforting Outcome: Progressing Note: [...] at the bedside 7. Instruct patient/ patient field representative about use of safety devices 8. Include patient/ patient field representative in decisions related to safety Outcome: [...] hygiene technique 7. Identify and instruct patient/patient field representative in use of appropriate isolation precautionsfor identified infection/symptoms 8. Provide and discuss with patient/patient field representative on educational MDRO sheet 9. Encourage and monitor nutritional status daily and consult heat treater if indicated 10. Implement neutropenic guidelines as needed 11. Review exposure to history of communicable disease and recent travel history on admission 12. Encourage annual influenza vaccine 13. Encourage pneumonia vaccine Outcome: Progressing Note: Evaluation of progress towards goal: Skin integrity remains in stable condition; remains w/o ss of infection, fever, pain, or increased discomfort. Problem: Knowledge Deficit Goal: Patient/patient field representative demonstrates understanding of disease process, treatment [...] supplement as ordered 13. Collaborate with clinical heat treater 14. Include patient/ patient's field representative in decisions related to nutrition Outcome: [...] discharge planning process 5. Communicate referral to personal development educator as appropriate 6. Communicate referral to heat treater as appropriate 7. Collaborate with case management/social media coordinator for discharge needs Outcome: Progressing Note: Evaluation of progress towards goal: Discharge planning in process; will continue to monitor for discharge needs. Problem: Moderate - High Risk Fall Score Description: [place]red[place] Fall Score of =/> 25 or indicated by [facility] Assessment Goal: Patient should be free from fall Description: Interventions: 1. [place] to environment 2. Hourly rounds addressing the [...] non-skid footwear 11. Teach patient and patient field representative to maintain environment for safety and [...] (cane, walker) within reach 19. Request patient field representative bring adaptive equipment/mobility aids from home or obtain and provide as needed 20. Consult pharmacy regarding effects of med's affecting mobility, cognition, and alternatives 21. Obtain physician order for PT if risk factors associated with mobility are present 22. Obtain physician order for OT as appropriate 23. Utilize diversional activities 24. Educate patient and patient field representative how to maintain a safe environment during visitationtimes (notify nurse prior to leaving bedside) 25. Consider appropriateness of medical or non-medical reception specialist 26. Set up voiding schedule as appropriate (every 2 hours) Outcome: Progressing Note: Evaluation of progress towards goal: Call light within reach. Remains free of fall or injury.Environment free of clutter. [facility] [facility] Progress note* Discharge Planning Note - JEWEL Harrington - 02/02/2024 12:06 PM EDT DISCHARGE PLANNING NOTE Patient discussed today in daily transition rounds. Current Discharge Plan; IPR- [facility]. Current Barriers: pain control. SW requested transport for 2pm tomorrow for DC. - JEWEL HARRINGTON 02/02/24 12:06 PM [facility]06-21-2024 Progress note* PT/OT/BAR WAITER/WAITRESS - Nas Lima PTA - 02/02/2024 8:13 [...] belt, RW Weight Bearing Status: WBAT RLE Telemetry/Process Tech: Yes Other: fall risk Pain Assessment Pain [...] Outcomes Date/Time User Outcome 02/02/24 0937 Nas Clarence, COAGULATING BATH MIXER Not Progressing 02/01/24 1525 Nick Fernandez PTA [...] Nas Lima, SHERYL Progressing 02/01/24 1525 Nick Fernandez, COAGULATING BATH MIXER Progressing 02/01/24 1140 Nick Fernandez PTA Not Progressing 01/31/24 1545 Nick Fernandez PTA Progressing Goal Note filed on 02/01/24 1525 by Nick Fernandez PTA Evaluation of progress towards goal: Physical Therapy Care Plan (Resolved) There are no resolved problems. Principal Problem: Closed fracture of right hip, initial encounter ([facility]) Active Problems: Myah-prosthetic fracture around prosthetic hip Associated attestation - Carlos Brar, PT - 02/02/2024 3:00 PM EDT I have reviewed and agree with this note and education documentation for this visit. [employer]06-21-2024 Progress note* PT/OT/BAR WAITER/WAITRESS - Ludy Ireland OTR/Lanie - 02/02/2024 8:13 [...] None Scoring Daily Activity Raw Score: 18 [facility] G Code Modifier: CK OT Treatment/Interventions: ADL [...] belt Weight Bearing Status: WBAT Rt LE Telemetry/Process Tech: Yes Oxygen Used: room air Other: fall [...] Date/Time User Outcome 02/02/24 0953 Ludy Ireland OTR/L Not Progressing 02/01/24 1548 Azul Mitchell, SERVIN/L Progressing 02/01/24 1328 Azul Mitchell, SERVIN/L Not Progressing 01/31/24 1609 Azul Mitchell, SERVIN/L Progressing Goal Note filed on 02/02/24 0953 by Ludy Ireland OTR/Lanie Evaluation of progress towards goal: Problem: Bed Mobility Dates: Start: 01/31/24 Disciplines: OT Goal: Patient will perform bed mobility with Modified [place] Dates: Start: 01/31/24 Expected End: 02/28/24 Description: Goal Description: Disciplines: OT Outcomes Date/Time User Outcome 02/01/24 1328 Azul Mitchell, SERVIN/L Progressing Goal Note filed on 02/01/24 1328 by Azul Medrano SERVIN/L Evaluation of progress towards goal: Problem: Functional Mobility Dates: Start: 01/31/24 Disciplines: OT Goal: Patient will perform functional mobility with Modified [place] Dates: Start: 01/31/24 Expected End: 02/28/24 Description: [...] Date/Time User Outcome 02/02/24 0953 Ludy Ireland OTR/L Progressing 02/01/24 [...] Date/Time User Outcome 02/02/24 0953 Ludy Ireland OTR/L Not Progressing [...] filed on 02/01/24 1548 by Azul Medrano SERVNI/L Evaluation of progress towards goal: Problem: Transfers Dates: Start: 01/31/24 Disciplines: OT Goal: Patient will perform transfers with Modified [place] Dates: Start: 01/31/24 Expected End: 02/28/24 Description: [...] Closed fracture of right hip, initial encounter ([facility]) Active Problems: Myah-prosthetic fracture around prosthetic hip [facility] [employer] Kate [id number] Plan of care note* Plan of Care - Lacey Singer RN - 02/01/2024 10:15 PM EDT Problem: Pain Goal: Patient goal is pain score less than 4, able to rest, and participant in treatment plan as appropriate Description: INTERVENTIONS: 1. Encourage patient or legal field representative to report early pain and ask [...] per policy 9. Teach patient or legal field representative interventions for comforting Outcome: Progressing Note: [...] at the bedside 7. Instruct patient/ patient field representative about use of safety devices 8. Include patient/ patient field representative in decisions related to safety Outcome: Progressing Note: Evaluation of progress towards goal: Assessed patient's risk for falls and implemented fall prevention plan of care per policy. Provided and maintained a safe environment. Pt remains free from falls and injury during this stay. [facility] Kate [id number] Nurse Note* Alistair Richards RN - 02/01/2024 [...] Thank you, Alistair Richards RN Rapid Response: [facility]06-20-2024 Progress note* PT/OT/BAR WAITER/WAITRESS - NALLELY Nielsen - 02/01/2024 3:49 PM [...] RW Weight Bearing Status: WBAT Rt LE Telemetry/Process Tech: Yes Oxygen Used: room air Other: fall [...] Azul Mitchell, SERVIN/L Not Progressing 01/31/24 1609 Azulvanessa Medrano, SERVIN/L Progressing Goal Note filed on 02/01/24 1548 by CHARU NielsenA/Lanie Evaluation of progress towards goal: Problem: Bed Mobility Dates: Start: 01/31/24 Disciplines: OT Goal: Patient will perform bed mobility with Modified [place] Dates: Start: 01/31/24 Expected End: 02/28/24 Description: Goal Description: Disciplines: OT Outcomes Date/Time User Outcome 02/01/24 1328 Azul Medrano SERVIN/L Progressing Goal Note filed on 02/01/24 1328 by CHARU NielsenA/Lanie Evaluation of progress towards goal: Problem: Functional Mobility Dates: Start: 01/31/24 Disciplines: OT Goal: Patient will perform functional mobility with Modified [place] Dates: Start: 01/31/24 Expected End: 02/28/24 Description: Goal Description: Disciplines: OT Outcomes Date/Time User Outcome 02/01/24 1548 Azul Medrano, SERVIN/L Progressing 02/01/24 1328 Azul Medrano SERVIN/L Not Progressing 01/31/24 1609 Azul Medrano, SERVIN/L Progressing Goal Note filed on 02/01/24 1548 by CHARU NielsenA/Lanie Evaluation of progress towards goal: Problem: Other [...] Goal: Patient will perform transfers with Modified [place] Dates: Start: 01/31/24 Expected End: 02/28/24 Description: [...] Closed fracture of right hip, initial encounter ([facility]) Active Problems: Myah-prosthetic fracture around prosthetic hip Associated attestation - Ludy Ireland OTR/L - 02/02/2024 7:41 AM EDT I have reviewed and agree with this note and education documentation for this visit. [employer] [id number] Progress note* PT/OT/BAR WAITER/WAITRESS - Nick Fernandez PTA - 02/01/2024 3:39 [...] 6 Clicks: Basic Mobility Raw Score: 11 [facility] G Code Modifier: CL Patient Response to [...] RW Weight Bearing Status: WBAT Rt LE Telemetry/Process Tech: Yes Oxygen Used: room air Other: fall [...] Closed fracture of right hip, initial encounter ([facility]) Active Problems: Myah-prosthetic fracture around prosthetic hip Associated attestation - Lindsay Infante, PT - 02/01/2024 3:54 PM EDT I have reviewed and agree with this note and education documentation for this visit. [employer]06-20-2024 Progress note* PT/OT/BAR WAITER/WAITRESS - NALLELY Nielsen - 02/01/2024 1:29 PM EDT Occupational Therapy [...] None Scoring Daily Activity Raw Score: 17 [facility] G Code Modifier: CK OT Treatment/Interventions: ADL [...] RW Weight Bearing Status: WBAT Rt LE Telemetry/Process Tech: Yes Oxygen Used: room air Other: fall [...] 1328 CHARU NielsenA/Lanie Not Progressing 01/31/24 1609 Azul Medrano SERVIN/L Progressing Goal Note filed on 02/01/24 1328 by NALLELY Nielsen Evaluation of progress towards goal: Problem: Bed Mobility Dates: Start: 01/31/24 Disciplines: OT Goal: Patient will perform bed mobility with Modified [place] Dates: Start: 01/31/24 Expected End: 02/28/24 Description: Goal Description: Disciplines: OT Outcomes Date/Time User Outcome 02/01/24 1328 CHARU NielsenA/Lanie Progressing Goal Note filed on 02/01/24 1328 by NALLELY Nielsen Evaluation of progress towards goal: Problem: Functional Mobility Dates: Start: 01/31/24 Disciplines: OT Goal: Patient will perform functional mobility with Modified [place] Dates: Start: 01/31/24 Expected End: 02/28/24 Description: Goal Description: Disciplines: OT Outcomes Date/Time User Outcome 02/01/24 1328 CHARU NielsenA/Lanie Not Progressing 01/31/24 1609 MALATHI Nielsen/Lanie Progressing Goal Note filed on 02/01/24 1328 [...] 1328 CHARU NielsenA/Lanie Not Progressing 01/31/24 1609 MALATHI Nielsen/Lanie Progressing Goal Note filed on 02/01/24 1328 [...] Goal: Patient will perform transfers with Modified [place] Dates: Start: 01/31/24 Expected End: 02/28/24 Description: Goal Description: Disciplines: OT Outcomes Date/Time User Outcome 02/01/24 1328 NALLELY Nielsen Not Progressing 01/31/24 1609 NALLELY Nielsen Progressing Goal Note filed on 02/01/24 1328 by NALLELY Nielsen Evaluation of progress towards goal: Occupational Therapy Care Plan (Resolved) There are no resolved problems. Principal Problem: Closed fracture of right hip, initial encounter ([facility]) Active Problems: Myah-prosthetic fracture around prosthetic hip Associated attestation - Ludy Ireland OTR/L - 02/01/2024 2:58 PM EDT I have reviewed and agree with this note and education documentation for this visit. [facility] Kate [id number] Progress note* PT/OT/BAR WAITER/WAITRESS - Nick Costawin, COAGULATING BATH MIXER - 02/01/2024 11:57 AM EDT Physical Therapy [...] Weight Bearing Status: (P) WBAT Rt LE Telemetry/Process Tech: (P) Yes Oxygen Used: (P) room air [...] Outcomes Date/Time User Outcome 02/01/24 1140 Nick Fernadnez PTA Progressing Goal Note filed on 02/01/24 [...] Closed fracture of right hip, initial encounter ([facility]) Active Problems: Myah-prosthetic fracture around prosthetic hip Associated attestation - Lindsay Infante, PT - 02/01/2024 3:54 PM EDT I have reviewed and agree with this note and education documentation for this visit. [facility] Progress note* Discharge Planning Note - JEWEL Crenshaw - 02/01/2024 11:36 AM EDT DISCHARGE PLANNING NOTE DC plan I[facility]: [facility] can accept pt back. No auth needed. W/C tx cert in dc packet. Barriers: pain control on IV pain meds, Rt leg swollen - JEWEL Crenshaw 02/01/24 11:37 AM [facility] Progress note* Significant Event - HUBERT Paul [...] this time. HUBERT Patel PA-C 02/01/24 1055 [employer] Work Phone: 1(546) 886-203006-20-2024 Plan of care note* Plan of Care - Antionette Smith RN - 02/01/2024 10:19 AM EDT Problem: Pain Goal: Patient goal is pain score less than 4, able to rest, and participant in treatment plan as appropriate Description: INTERVENTIONS: 1. Encourage patient or legal field representative to report early pain and ask [...] per policy 9. Teach patient or legal field representative interventions for comforting Outcome: Progressing Note: [...] at the bedside 7. Instruct patient/ patient field representative about use of safety devices 8. Include patient/ patient field representative in decisions related to safety Outcome: Progressing Note: Evaluation of progress towards goal: free from falls Problem: Glucose Imbalance Goal: Clinical indication of glucose balance is achieved Description: Patient's goal is: INTERVENTIONS 1. Monitor blood glucose levels as ordered 2. Administer medications as ordered 3. Notify physician of ineffective treatment plan Outcome: Progressing Note: Evaluation of progress towards goal: blood glucose stable [employer]06-20-2024 Hospital Discharge instructions* Discharge Instructions* Leatha Saldivar MD - 02/01/2024 7:26 AM EDT 1. [...] pressure medications if systolic blood pressure greater [id number] or less than 110 or heart rate [...] at 8:15 a.m. regarding recent surgery. Telephone number:[phone] 9. No driving and no operating heavy [...] Center 02/12/2024 8:15 AM Ang Figueroa MD [facility] Office Location: [facility] [address] [place] [address] Call 911 immediately if you experience: Chest [...] Care Everywhere. * Femur Fracture Discharge Instructions (Ukrainian) [facility] Plan of care note * Plan of Care - Santi Parks RN - 01/31/2024 7:30 PM EDT Problem: Pain Goal: Patient goal is pain score less than 4, able to rest, and participant in treatment plan as appropriate Description: INTERVENTIONS: 1. Encourage patient or legal field representative to report early pain and ask [...] per policy 9. Teach patient or legal field representative interventions for comforting Outcome: Progressing Note: [...] at the bedside 7. Instruct patient/ patient field representative about use of safety devices 8. Include patient/ patient field representative in decisions related to safety Outcome: [...] hygiene technique 7. Identify and instruct patient/patient field representative in use of appropriate isolation precautionsfor identified infection/symptoms 8. Provide and discuss with patient/patient field representative on educational MDRO sheet 9. Encourage and monitor nutritional status daily and consult heat treater if indicated 10. Implement neutropenic guidelines as needed 11. Review exposure to history of communicable disease and recent travel history on admission 12. Encourage annual influenza vaccine 13. Encourage pneumonia vaccine Outcome: Progressing Note: Evaluation of progress towards goal: Pt afebrile at this time, continue to monitor for signs infection Problem: Knowledge Deficit Goal: Patient/patient field representative demonstrates understanding of disease process, treatment plan,medications, and discharge instructions Description: INTERVENTIONS 1. Complete learning assessment and assess knowledge base 2. Provide teaching at level of understanding 3. Provide teaching via preferred learning method(s) Outcome: Progressing Note: Evaluation of progress towards goal: POC discussed with patient. Questions answered PRN. [facility]06-19-2024 Progress note* PT/OT/BAR WAITER/WAITRESS - MALATHI Nielsen/Lanie - 01/31/2024 4:10 PM EDT Occupational Therapy [...] RW Weight Bearing Status: WBAT Rt LE Telemetry/Process Tech: Yes Oxygen Used: room air Other: fall [...] Disciplines: OT Outcomes Date/Time User Outcome 01/31/24 1608 NALLELY Nielsen Progressing Goal Note filed on 01/31/24 1609 by NALLELY Nielsen Evaluation of progress towards goal: Problem: Bed Mobility Dates: Start: 01/31/24 Disciplines: OT Goal: Patient will perform bed mobility with Modified [place] Dates: Start: 01/31/24 Expected End: 02/28/24 Description: Goal Description: Disciplines: OT Problem: Functional Mobility Dates: Start: 01/31/24 Disciplines: OT Goal: Patient will perform functional mobility with Modified [place] Dates: Start: 01/31/24 Expected End: 02/28/24 Description: [...] Goal: Patient will perform transfers with Modified [place] Dates: Start: 01/31/24 Expected End: 02/28/24 Description: Goal Description: Disciplines: OT Outcomes Date/Time User Outcome 01/31/24 1609 NALLELY Nielsen Progressing Goal Note filed on 01/31/24 1609 by NALLELY Nielsne Evaluation of progress towards goal: Occupational Therapy Care Plan (Resolved) There are no resolved problems. Principal Problem: Closed fracture of right hip, initial encounter ([facility]) Active Problems: Myah-prosthetic fracture around prosthetic hip Associated attestation - Ludy Ireland OTR/L - 02/01/2024 7:28 AM EDT I have reviewed and agree with this note and education documentation for this visit. [employer] [id number] Progress note* PT/OT/BAR WAITER/WAITRESS - Nick Fernandez PTA - 01/31/2024 3:56 [...] 6 Clicks: Basic Mobility Raw Score: 13 [facility] G Code Modifier: CK Patient Response to Treatment: Slow progress, decreased activity tolerance Assessment Patient Assessment Patient Response to Treatment: Slow progress, decreased activity tolerance Visit RN Communication: Yes Medical Record Reviewed: Yes PT Type of Visit: Treatment Precautions Activity: Up to chair TID and ambulate BID Equipment: gait belt, RW Weight Bearing Status: WBAT Rt LE Telemetry/Process Tech: Yes Oxygen Used: room air Other: fall [...] Closed fracture of right hip, initial encounter ([facility]) Active Problems: Myah-prosthetic fracture around prosthetic hip Associated attestation - Lindsay Infante, PT - 01/31/2024 4:14 PM EDT I have reviewed and agree with this note and education documentation for this visit. [facility]06-19-2024 Progress note* Discharge Planning Note - Alexandra Eric - 01/31/2024 3:48 PM EDT DISCHARGE PLANNING NOTE Referral sent to [facility], a division of [facility] P# [phone] [calling report];/[facility] (P# [calling report]; F# ) [facility]06-19-2024 Progress note* Discharge Planning Note - JEWEL Crenshaw - 01/31/2024 3:13 PM EDT Images from the original note were not included. DISCHARGE PLANNING NOTE SW met with patient introduce self & role. [facility]. Pt underwent [facility] on 01/18/24 and pt discharged to IP rehab on 01/22/24. Pt was transferred back to [facility] on 01/28 after fall at rehab [...] and pt would like to return to [facility] rehab. Referral was sent, await confirmation they can accept pt back. Services Requested: Services Requested Acute Rehab Name: [facility] . Patient choice offered: Other (comment) (pt current with provider) List Provided: Other (comment) Initial DC Assessment Completed: Yes Patient Goals: Goals: Goals (pt-stated) Evaluation of progress towards goal: pt plans to return to [facility]hab [place] to improve mobility and get home (pt-stated) Evaluation of progress towards goal: Participating in therapy - JEWEL Crenshaw 01/31/24 3:18 PM [facility] Kate [id number] Progress note* PT/OT/BAR WAITER/WAITRESS - Lindsay Infante, PT - 01/31/2024 1:02 [...] from lisinopril Chronic pain disorder [facility] cancer [place] COPD (chronic obstructive pulmonary disease) ([facility] Depression Diabetes mellitus type 2, controlled ([facility]) Fibromyalgia, primary Fracture of right hip, closed, initial encounter ([facility]) 01/17/2024 GERD (gastroesophageal reflux disease) Hyperlipidemia Hypertension Insulin-treated type 2 diabetes mellitus ([facility]) Joint pain Kidney stones Liver disease Low back pain Neck pain Obesity Osteoarthritis Visual impairment Past Surgical History: Procedure Laterality Date BACK SURGERY COLON SURGERY resection, 2018, [facility] DAVINCI REPAIR HERNIA VENTRAL N/A 10/27/2021 Performed by Ridge Cedillo MD at [facility] DENTAL SURGERY pt had all teeth removed HERNIA REPAIR x's 2 INSERTION INTRAMEDULLARY NAIL FEMUR Right 01/30/2024 Performed by Ang Figueroa MD at [facility] INSERTION INTRAMEDULLARY NAIL FEMUR-TFNA HIP FX Right 01/18/2024 Performed by Ang Figueroa MD at [facility] [place] ORTHOPEDIC SURGERY 2008 foot, infected foot REMOVAL HARDWARE INTRAMEDULLARY NAIL/KATERYNA FEMUR Right 01/30/2024 Performed by Ang Figueroa MD at [facility] 6 Clicks: Basic Mobility Turning from your [...] RW Weight Bearing Status: WBAT Rt LE Telemetry/Process Tech: Yes Other: fall risk Pain Assessment Pain [...] Shower chair Home Equipment: Rolling walker, Cane, Stitch Bonding Machine Drawer In Prior Function Lives With: Alone Receives Help From: Neighbor Level of Mobility: Independent with ADLs and functional transfers or gait Homemaking Assistance: Independent (Except for driving) Other: Prior to injury pt completely independent without devices. He had been at [facility] just prior to this adm and amb [...] Closed fracture of right hip, initial encounter ([facility]) Active Problems: Myah-prosthetic fracture around prosthetic hip [employer] [id number] Progress note* PT/OT/BAR WAITER/WAITRESS - WILLARD Chavira/Lanie - 01/31/2024 11:28 AM [...] from lisinopril Chronic pain disorder Colon cancer ([facility] COPD (chronic obstructive pulmonary disease) ([facility]) Depression Diabetes mellitus type 2, controlled ([facility]) Fibromyalgia, primary Fracture of right hip, closed, initial encounter ([facility]) 01/17/2024 GERD (gastroesophageal reflux disease) Hyperlipidemia Hypertension Insulin-treated type 2 diabetes mellitus ([facility]) Joint pain Kidney stones Liver disease Low back pain Neck pain Obesity Osteoarthritis Visual impairment Past Surgical History: Procedure Laterality Date BACK SURGERY COLON SURGERY resection, 2018, [facility] DAVINCI REPAIR HERNIA VENTRAL N/A 10/27/2021 Performed by Ridge Cedillo MD at [facility] DENTAL SURGERY pt had all teeth removed HERNIA REPAIR x's 2 INSERTION INTRAMEDULLARY NAIL FEMUR Right 01/30/2024 Performed by Ang Figueroa MD at [facility] [place] INSERTION INTRAMEDULLARY NAIL FEMUR-TFNA HIP FX Right 01/18/2024 Performed by Ang Figueroa MD at [facility] [place] ORTHOPEDIC SURGERY 2008 foot, infected foot REMOVAL HARDWARE INTRAMEDULLARY NAIL/KATERYNA FEMUR Right 01/30/2024 Performed by Ang Figueroa MD at [facility] Chief Complaint Patient presents with Fall Evaluation [...] RW Weight Bearing Status: WBAT Rt LE Telemetry/Process Tech: Yes Oxygen Used: room air Other: fall [...] Shower chair Home Equipment: Rolling walker, Cane, Stitch Bonding Machine Drawer In Other : No AE/DME needs prior to [...] Patient will perform bed mobility with Modified [place] Dates: Start: 01/31/24 Expected End: 02/28/24 Description: Goal Description: Disciplines: OT Problem: Functional Mobility Dates: Start: 01/31/24 Disciplines: OT Goal: Patient will perform functional mobility with Modified [place] Dates: Start: 01/31/24 Expected End: 02/28/24 Description: [...] Goal: Patient will perform transfers with Modified [place] Dates: Start: 01/31/24 Expected End: 02/28/24 Description: Goal Description: Disciplines: OT Occupational Therapy Care Plan (Resolved) There are no resolved problems. Principal Problem: Closed fracture of right hip, initial encounter ([facility]) Active Problems: Myah-prosthetic fracture around prosthetic hip [employer]06-19-2024 Consult note* Anne Ventura MD - 01/31/2024 [...] from lisinopril Chronic pain disorder Colon cancer ([facility] COPD (chronic obstructive pulmonary disease) ([facility]) Depression Diabetes mellitus type 2, controlled ([facility]) Fibromyalgia, primary Fracture of right hip, closed, initial encounter ([facility]) 01/17/2024 GERD (gastroesophageal reflux disease) Hyperlipidemia Hypertension Insulin-treated type 2 diabetes mellitus ([facility]) Joint pain Kidney stones Liver disease Low back pain Neck pain Obesity Osteoarthritis Visual impairment PSH: Past Surgical History: Procedure Laterality Date BACK SURGERY COLON SURGERY resection, 2018, [facility] DAVINCI REPAIR HERNIA VENTRAL N/A 10/27/2021 Performed by Ridge Cedillo MD at [facility] DENTAL SURGERY pt had all teeth removed HERNIA REPAIR x's 2 INSERTION INTRAMEDULLARY NAIL FEMUR Right 01/30/2024 Performed by Ang Figueroa MD at [facility] [place] INSERTION INTRAMEDULLARY NAIL FEMUR-TFNA HIP FX Right 01/18/2024 Performed by Ang Figueroa MD at [facility] 2008 foot, infected foot REMOVAL HARDWARE INTRAMEDULLARY NAIL/KATERYNA FEMUR Right 01/30/2024 Performed by Ang Figueroa MD at [facility] Allergies Allergen Reactions Insulin Glargine Nausea And [...] tablet 1,000 mcg, 1,000 mcg, oral, Daily, DAGO Medrano, 1,000 mcg at 01/31/24 0748 cyclobenzaprine (FLEXERIL) [...] tablet 1 mg, 1 mg, oral, Daily, DAGO Medrano, 1 mg at 01/31/24 0748 gabapentin (NEURONTIN) [...] min Stress: No Stress Concern Present (01/22/2024) [place] [place] [facility] - Occupational Stress Questionnaire Feeling of Stress : Not at all Social Connections: Socially Isolated (01/22/2024) Social Connection and Isolation Panel [NHANES] Frequency of Communication with Friends and Family: More than three times a week Frequency of Social Gatherings with Friends and Family: More than three times a week Attends Congregation Services: Never Active Member of Clubs or [...] you for the consultation Anne Ventura MD [employer] Work Phone: 1(675) 603-130306-19-2024 Consult note* Anne Ventura MD - 01/31/2024 [...] from lisinopril Chronic pain disorder Colon cancer ([facility] COPD (chronic obstructive pulmonary disease) ([facility] Depression Diabetes mellitus type 2, controlled ([facility]) Fibromyalgia, primary Fracture of right hip, closed, initial encounter ([facility]) 01/17/2024 GERD (gastroesophageal reflux disease) Hyperlipidemia Hypertension Insulin-treated type 2 diabetes mellitus ([facility]) Joint pain Kidney stones Liver disease Low back pain Neck pain Obesity Osteoarthritis Visual impairment PSH: Past Surgical History: Procedure Laterality Date BACK SURGERY COLON SURGERY resection, 2018, [facility] DAVINCI REPAIR HERNIA VENTRAL N/A 10/27/2021 Performed by Ridge Cedillo MD at [facility] pt had all teeth removed HERNIA REPAIR x's 2 INSERTION INTRAMEDULLARY NAIL FEMUR Right 01/30/2024 Performed by Ang Figueroa MD at [facility] INSERTION INTRAMEDULLARY NAIL FEMUR-TFNA HIP FX Right 01/18/2024 Performed by Ang Fiugeroa MD at [facility] 2008 foot, infected foot REMOVAL HARDWARE INTRAMEDULLARY NAIL/KATERYNA FEMUR Right 01/30/2024 Performed by Ang Figueroa MD at [facility] Allergies Allergen Reactions Insulin Glargine Nausea And [...] tablet 1,000 mcg, 1,000 mcg, oral, Daily, DAGO Medrano, 1,000 mcg at 01/31/24 0748 cyclobenzaprine (FLEXERIL) [...] mg, 1 mg, oral, Daily, Marsha Flores, SENIOR MANAGING DIRECTOR-DYNAMICS AX SOLUTION ARCHITECT, 1 mg at 01/31/24 0748 gabapentin (NEURONTIN) [...] tablet 40 mg, 40 mg, oral, Daily, Deomnd Frazier MD, 40 mg at 01/31/24 0522 [...] min Stress: No Stress Concern Present (01/22/2024) [place] [place] [facility] - Occupational Stress Questionnaire Feeling of Stress : Not at all Social Connections: Socially Isolated (01/22/2024) Social Connection and Isolation Panel [NHANES] Frequency of Communication with Friends and Family: More than three times a week Frequency of Social Gatherings with Friends and Family: More than three times a week Attends Congregation Services: Never Active Member of Clubs or [...] consultation Anne Ventura MD * Marsha Flores APRN-DYNAMICS AX SOLUTION ARCHITECT - 01/29/2024 12:43 PM EDTAssociated Order(s): CONSULT BENIGN HEMATOLOGY AND BLOOD MANAGEMENT Benign Hematology/ Patient Blood Management Consultation: Dr. Paul GASPAR Patient ID: Ruth Smith, 53 y.o. [...] from lisinopril Chronic pain disorder Colon cancer ([facility]) COPD (chronic obstructive pulmonary disease) ([facility]) Depression Diabetes mellitus type 2, controlled ([facility]) Fibromyalgia, primary Fracture of right hip, closed, initial encounter ([facility]) 01/17/2024 GERD (gastroesophageal reflux disease) Hyperlipidemia Hypertension Insulin-treated type 2 diabetes mellitus ([facility]) Joint pain Kidney stones Liver disease Low back pain Neck pain Obesity Osteoarthritis Visual impairment PAST SURGICAL HISTORY: Past Surgical History: Procedure Laterality Date BACK SURGERY COLON SURGERY resection, 2018, [facility] DAVINCI REPAIR HERNIA VENTRAL N/A 10/27/2021 Performed by Ridge Cedillo MD at [facility] pt had all teeth removed HERNIA REPAIR x's 2 INSERTION INTRAMEDULLARY NAIL FEMUR-TFNA HIP FX Right 01/18/2024 Performed by Ang Figueroa MD at [facility] 2008 foot, infected foot PAST [...] min Stress: No Stress Concern Present (01/22/2024) [place] [place] [facility] - Occupational Stress Questionnaire Feeling of Stress : Not at all Social Connections: Socially Isolated (01/22/2024) Social Connection and Isolation Panel [NHANES] Frequency of Communication with Friends and Family: More than three times a week Frequency of Social Gatherings with Friends and Family: More than three times a week Attends Congregation Services: Never Active Member of Clubs or [...] 1,000 mg 1,000 mg intravenous Q6H Zabrina Sibley APRN-ELIANE Stopped at 01/28/24 2494 Current Outpatient Medications on File Prior to [...] 5 (L) 01/29/2024 IRONSAT 16 (L) 01/17/2024 [id number] 01/29/2024 [id number] 242 01/17/2024 FOLATE 8.4 01/29/2024 FOLATE 9.3 [...] Flores NP Patient Blood Management/Bloodless Medicine Office [phone] DAGO Medrano 01/29/24 1342 documented in this encounterFirelands Regional Medical CenterBeijing capital online science and technology [id number] Plan of care note * Plan of Care - Mia Goddard RN - 01/31/2024 9:06 AM EDT Problem: Pain Goal: Patient goal is pain score less than 4, able to rest, and participant in treatment plan as appropriate Description: INTERVENTIONS: 1. Encourage patient or legal field representative to report early pain and ask [...] per policy 9. Teach patient or legal field representative interventions for comforting Outcome: Progressing Note: Evaluation of progress towards goal: Patinet rates pain level between 6 to 10 is medicated asordered, states has acceptable pain relief. Will continue to moniter CentervilleUndo [id number] Plan of care note* Plan of Care - Santi Parks RN - 01/30/2024 7:35 PM EDT Problem: Pain Goal: Patient goal is pain score less than 4, able to rest, and participant in treatment plan as appropriate Description: INTERVENTIONS: 1. Encourage patient or legal field representative to report early pain and ask [...] per policy 9. Teach patient or legal field representative interventions for comforting Outcome: Progressing Note: [...] at the bedside 7. Instruct patient/ patient field representative about use of safety devices 8. Include patient/ patient field representative in decisions related to safety Outcome: [...] hygiene technique 7. Identify and instruct patient/patient field representative in use of appropriate isolation precautionsfor identified infection/symptoms 8. Provide and discuss with patient/patient field representative on educational MDRO sheet 9. Encourage and monitor nutritional status daily and consult heat treater if indicated 10. Implement neutropenic guidelines as needed 11. Review exposure to history of communicable disease and recent travel history on admission 12. Encourage annual influenza vaccine 13. Encourage pneumonia vaccine Outcome: Progressing Note: Evaluation of progress towards goal: Pt afebrile at this time, continue to monitor for signs infection Problem: Knowledge Deficit Goal: Patient/patient field representative demonstrates understanding of disease process, treatment plan,medications, and discharge instructions Description: INTERVENTIONS 1. Complete learning assessment and assess knowledge base 2. Provide teaching at level of understanding 3. Provide teaching via preferred learning method(s) Outcome: Progressing Note: Evaluation of progress towards goal: POC discussed with patient. Questions answered PRN. [facility]06-18-2024 Plan of care note* Plan of Care - Rachel Almanzar RN - 01/30/2024 6:16 PM EDT Problem: Pain Goal: Patient goal is pain score less than 4, able to rest, and participant in treatment plan as appropriate Description: INTERVENTIONS: 1. Encourage patient or legal field representative to report early pain and ask [...] per policy 9. Teach patient or legal field representative interventions for comforting Outcome: Progressing Note: Evaluation of progress towards goal: Encourage patient or legal field representative to report early pain and ask [...] at the bedside 7. Instruct patient/ patient field representative about use of safety devices 8. Include patient/ patient field representative in decisions related to safety Outcome: [...] hygiene technique 7. Identify and instruct patient/patient field representative in use of appropriate isolation precautionsfor identified infection/symptoms 8. Provide and discuss with patient/patient field representative on educational MDRO sheet 9. Encourage and monitor nutritional status daily and consult heat treater if indicated 10. Implement neutropenic guidelines as [...] and monitor nutritional status daily and consult heat treater if indicated. Encourage annual influenza vaccine and pneumonia vaccine. [facility] [employer] [id number] NoteXR FEMUR RT 2+ VIEWS Clinical history: [...] by Jun Ortega MD on 01/30/2024 1:28 [facility] 01-30-2024 NoteClinical history: Postop hardware evaluation Right [...] by Jun Ortega MD on 01/30/2024 1:28 [id number] Procedure note* Op Note - Ang Figueroa MD - 01/30/2024 9:23 AM EDT DATE OF OPERATION: January 30, 2024 PREOPERATIVE DIAGNOSIS: 1. right intertrochanteric hip fracture with new periprosthetic subtrochanteric fracture after a second fall at rehab POSTOPERATIVE DIAGNOSIS: 1. Same OPERATION: 1. IM nail right intertrochanteric/subtrochanteric hip fracture.- 72049 2. Removal hardware Right femur - SURGEON: Ang Figueroa MD PRINTING WORKER SUPERVISOR: Jalen Gan MD ANESTHESIA: General. MEDICATIONS: vanc [...] , damage to normal structure, PE, DVT, RI, stroke, nonunion, malunion, chronic pain, arthrosis, arthritis, [...] was then placed by using a perfect [place] technique with fluoroscopy. The drill bit was [...] at time of surgery. ANG FIGUEROA MD [facility]06-18-2024 Attending History and physical note* Ang Figueroa [...] based on above criteria. Ang Figueroa MD. [employer] Work Phone: 1(161) 345-408806-18-2024 History and physical note* Ang Figueroa MD [...] Frazier MD - 01/29/2024 10:52 AM EDT [facility] Patient's [...] right intertrochanteric hip fracture, was transfer from [facility] for evaluation of severe pain. Patient was recently discharged to [facility] after right intertrochanteric hip fracture surgery. Two days ago, on Monday, patient failed and landed on his right hip causing worsening pain.Initial hip x-ray at that time was unremarkable without evidence of fracture. However, pain did notimprove and progressively worsen. CT brain hip demonstrated periprosthetic right hip fracture. Therefore, he was transferred to [facility] for surgical intervention. Patient was seen [...] from lisinopril Chronic pain disorder Colon cancer ([facility]) COPD (chronic obstructive pulmonary disease) ([facility] Depression Diabetes mellitus type 2, controlled ([facility]) Fibromyalgia, primary Fracture of right hip, closed, initial encounter ([facility]) 01/17/2024 GERD (gastroesophageal reflux disease) Hyperlipidemia Hypertension Insulin-treated type 2 diabetes mellitus ([facility]) Joint pain Kidney stones Liver disease Low back pain Neck pain Obesity Osteoarthritis Visual impairment PAST SURGICAL HISTORY: Past Surgical History: Procedure Laterality Date BACK SURGERY COLON SURGERY resection, 2018, [facility] DAVINCI REPAIR HERNIA VENTRAL N/A 10/27/2021 Performed by Ridge Cedillo MD at [facility]ERY pt had all teeth removed HERNIA REPAIR x's 2 INSERTION INTRAMEDULLARY NAIL FEMUR-TFNA HIP FX Right 01/18/2024 Performed by Ang Figueroa MD at [facility] 2008 foot, infected foot PAST TRAVEL HISTORY: Travel [...] min Stress: No Stress Concern Present (01/22/2024) [place] [place] [facility] - Occupational Stress Questionnaire Feeling of Stress : Not at all Social Connections: Socially Isolated (01/22/2024) Social Connection and Isolation Panel [NHANES] Frequency of Communication with Friends and Family: More than three times a week Frequency of Social Gatherings with Friends and Family: More than three times a week Attends Congregation Services: Never Active Member of Clubs or [...] and corrected by editing. documented in this encounterR[facility]06[facility] Progress note* PT/OT/BAR WAITER/WAITRESS - Thalia Han OTR/L - 01/30/2024 8:43 AM EDT Occupational Therapy CANCEL - Deferred OT attempted. Pt off floor at surgery. Will check back as able. [facility]06-18-2024 Progress note* PT/OT/BAR WAITER/WAITRESS - Lindsay Infante, NICOLE - 01/30/2024 8:41 AM EDT Physical Therapy CANCEL - Deferred (Pt currently off the unit in surgery. Will complete PT eval post-op as able.) [facility]06-17-2024 Plan of care note* Plan of Care - Santi Parks RN - 01/29/2024 8:51 PM EDT Problem: Pain Goal: Patient goal is pain score less than 4, able to rest, and participant in treatment plan as appropriate Description: INTERVENTIONS: 1. Encourage patient or legal field representative to report early pain and ask [...] per policy 9. Teach patient or legal field representative interventions for comforting Outcome: Progressing Note: [...] at the bedside 7. Instruct patient/ patient field representative about use of safety devices 8. Include patient/ patient field representative in decisions related to safety Outcome: [...] hygiene technique 7. Identify and instruct patient/patient field representative in use of appropriate isolation precautionsfor identified infection/symptoms 8. Provide and discuss with patient/patient field representative on educational MDRO sheet 9. Encourage and monitor nutritional status daily and consult heat treater if indicated 10. Implement neutropenic guidelines as needed 11. Review exposure to history of communicable disease and recent travel history on admission 12. Encourage annual influenza vaccine 13. Encourage pneumonia vaccine Outcome: Progressing Note: Evaluation of progress towards goal: Pt afebrile at this time, continue to monitor for signs infection Problem: Knowledge Deficit Goal: Patient/patient field representative demonstrates understanding of disease process, treatment plan,medications, and discharge instructions Description: INTERVENTIONS 1. Complete learning assessment and assess knowledge base 2. Provide teaching at level of understanding 3. Provide teaching via preferred learning method(s) Outcome: Progressing Note: Evaluation of progress towards goal: POC discussed with patient. Questions answered PRN. [facility]06-17-2024 Consult note* Marsha Flores APRN-ELIANE - 01/29/2024 12:43 PM EDTAssociated Order(s): CONSULT BENIGN HEMATOLOGY AND BLOOD MANAGEMENT Benign Hematology/ Patient Blood Management Consultation: Dr. 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 Laura GASPAR Patient ID: Ruth Smith, 53 [...] from lisinopril Chronic pain disorder Colon cancer ([facility]) COPD (chronic obstructive pulmonary disease) ([facility] Depression Diabetes mellitus type 2, controlled ([facility]) Fibromyalgia, primary Fracture of right hip, closed, initial encounter ([facility]) 01/17/2024 GERD (gastroesophageal reflux disease) Hyperlipidemia Hypertension Insulin-treated type 2 diabetes mellitus ([facility]) Joint pain Kidney stones Liver disease Low back pain Neck pain Obesity Osteoarthritis Visual impairment PAST SURGICAL HISTORY: Past Surgical History: Procedure Laterality Date BACK SURGERY COLON SURGERY resection, 2018, [facility] DAVINCI REPAIR HERNIA VENTRAL N/A 10/27/2021 Performed by Ridge Cedillo MD at [facility]ERY pt had all teeth removed HERNIA REPAIR x's 2 INSERTION INTRAMEDULLARY NAIL FEMUR-TFNA HIP FX Right 01/18/2024 Performed by Ang Figueroa MD at [facility] 2008 foot, infected foot PAST [...] min Stress: No Stress Concern Present (01/22/2024) [place] [place] [facility] - Occupational Stress Questionnaire Feeling of Stress : Not at all Social Connections: Socially Isolated (01/22/2024) Social Connection and Isolation Panel [NHANES] Frequency of Communication with Friends and Family: More than three times a week Frequency of Social Gatherings with Friends and Family: More than three times a week Attends Congregation Services: Never Active Member of Clubs or [...] intravenous Q6H DAGO Quezada Stopped at 01/28/24 2646 Current Outpatient Medications on File Prior to [...] 5 (L) 01/29/2024 IRONSAT 16 (L) 01/17/2024 [id number] 01/29/2024 [id number] 01/17/2024 FOLATE 8.4 01/29/2024 FOLATE 9.3 [...] Flores NP Patient Blood Management/Bloodless Medicine Office [phone] DAGO Medrano 01/29/24 1342 [employer] Work Phone: 1(171) 447-966606-17-2024 History and physical note* Demond Frazier MD - 01/29/2024 10:52 AM EDT [facility] Patient's [...] right intertrochanteric hip fracture, was transfer from [facility] for evaluation of severe pain. Patient was recently discharged to [facility] after right intertrochanteric hip fracture surgery. Two days ago, on Monday, patient failed and landed on his right hip causing worsening pain.Initial hip x-ray at that time was unremarkable without evidence of fracture. However, pain did notimprove and progressively worsen. CT brain hip demonstrated periprosthetic right hip fracture. Therefore, he was transferred to [facility] for surgical intervention. Patient was seen [...] from lisinopril Chronic pain disorder Colon cancer ([facility]) COPD (chronic obstructive pulmonary disease) ([facility]) Depression Diabetes mellitus type 2, controlled ([facility]) Fibromyalgia, primary Fracture of right hip, closed, initial encounter ([facility]) 01/17/2024 GERD (gastroesophageal reflux disease) Hyperlipidemia Hypertension Insulin-treated type 2 diabetes mellitus ([facility]) Joint pain Kidney stones Liver disease Low back pain Neck pain Obesity Osteoarthritis Visual impairment PAST SURGICAL HISTORY: Past Surgical History: Procedure Laterality Date BACK SURGERY COLON SURGERY resection, 2018, [facility] DAVINCI REPAIR HERNIA VENTRAL N/A 10/27/2021 Performed by Ridge Cedillo MD at [facility]ERY pt had all teeth removed HERNIA REPAIR x's 2 INSERTION INTRAMEDULLARY NAIL FEMUR-TFNA HIP FX Right 01/18/2024 Performed by Ang Figueroa MD at [facility] 2008 foot, infected foot PAST TRAVEL HISTORY: Travel [...] min Stress: No Stress Concern Present (01/22/2024) [place] [place] [facility] - Occupational Stress Questionnaire Feeling of Stress : Not at all Social Connections: Socially Isolated (01/22/2024) Social Connection and Isolation Panel [NHANES] Frequency of Communication with Friends and Family: More than three times a week Frequency of Social Gatherings with Friends and Family: More than three times a week Attends Congregation Services: Never Active Member of Clubs or [...] has been identified and corrected by editing. T [facility] [employer] [facility] Work Phone: 1(451) 983-526306-17-2024 Emergency department Triage note* Scarlett Yang RN - 01/29/2024 10:35 AM EDT Pt arrives to ED from Dr. Figueroa's office. Pt had a right hip replacement per Dr. Figueroa on 01/17 and hasbeen recovering at inpatient rehab at [place] since then. Pt had a fall on 01/26 and imaging confirmed that he had a new right femur fx around the recently placed kateryna. Pt was seen for the first time this morning by Dr. Figueroa who wanted pt sent to [facility] for admission to go to OR and have surgery. Ptis alert and oriented during triage appearing to be in severe pain after movement to stretcher. [facility]06-17-2024 Emergency department Note* Scarlett Yang RN - 01/29/2024 10:35 AM EDT Pt arrives to ED from Dr. Figueroa's office. Pt had a right hip replacement per Dr. Figueroa on 01/17 and hasbeen recovering at inpatient rehab at [place] since then. Pt had a fall on 01/26 and imaging confirmed that he had a new right femur fx around the recently placed kateryna. Pt was seen for the first time this morning by Dr. Figueroa who wanted pt sent to [facility] for admission to go to OR [...] hospitalist - OR tomorrow documented in this encounterRiver[facility]06-[facility] Emergency department Note* Zuly Liu RN - 01/29/2024 10:26 AM EDT Bed: 16 Expected date: Expected time: Means of arrival: Comments: Dr. Figueroa office call ahead Ruth Gray Fell post of hip fracture - broke around nail from recent hip fracture -needs admitted to hospitalist - OR tomorrow [facility]06-17-2024 History of Present illness Narrative* Jalen Gan [...] subtrochanteric fracture of right femur, initial encounter ([facility]) PLAN: Nonweightbearing to the right lower extremity [...] criteria. Ang Figueroa MD. documented in this encounterRiver[facility]06-10-2024 Miscellaneous Notes* Discharge Planning Note - Mendoza Pritchett - 01/22/2024 4:03 PM EDT [facility]GE PL[facility]ING [facility] * Discharge Planning Note - JEWEL Crenshaw - 01/22/2024 3:40 PM EDT Images from the original note were not included. DISCHARGE PLANNING NOTE [facility] Pt is agreeable to [facility]. No auth needed. Pt will discharge today. Transport arranged for 5pm. Patient, RN, facility all aware. CRF sent. W/C tx cert in dc packet Services Requested: Services Requested Discharge Disposition: Acute rehab Acute Rehab Name: [facility] Acute Rehab Does the patient need discharge transportation arranged?: Yes Patient choice offered: Yes List Provided: Yes [facility] List Provided: [facility] Facility Initial DC Assessment Completed: Yes Patient Goals: Goals: Goals <enter goal here> (pt-stated) Evaluation of progress towards goal: possible rehab placement vs home pending progress, recommendations and pt decision - JEWEL Crenshaw 01/22/24 3:44 PM * Discharge Planning Note - Cata Maravilla - 01/22/2024 3:00 PM EDT DISCHARGE PLANNING NOTE Confirmed WC from PTN via [employer] for 5:00pm case picker from , transport to [facility] They are subbing with BLS * Discharge Planning Note - Mendoza Pritchett - 01/22/2024 2:06 PM EDT DISCHARGE PLANNING NOTE Referral sent to [facility] Centers, a division of [facility] P# [phone] [calling report];/[facility] (P# [calling report]; F# ) * Discharge Planning Note - JEWEL Crenshaw - 01/22/2024 2:01 PM EDT DISCHARGE PLANNING NOTE SW informed that [facility] IP rehab does not currently have a bed available. GABRIEL discussed with pt and reviewed other IPR options. Pt is agreeable to [facility]. Referral sent, await acceptance. - JEWEL Crenshaw 01/22/24 2:01 PM * Plan of Care - Miranda Dudley RN - 01/22/2024 12:56 PM EDT Problem: Pain Goal: Patient goal is pain score less than 4, able to rest, and participant in treatment plan as appropriate Description: INTERVENTIONS: 1. Encourage patient or legal field representative to report early pain and ask [...] per policy 9. Teach patient or legal field representative interventions for comforting Outcome: Adequate for [...] at the bedside 7. Instruct patient/ patient field representative about use of safety devices 8. Include patient/ patient field representative in decisions related to safety Outcome: [...] hygiene technique 7. Identify and instruct patient/patient field representative in use of appropriate isolation precautionsfor identified infection/symptoms 8. Provide and discuss with patient/patient field representative on educational MDRO sheet 9. Encourage and monitor nutritional status daily and consult heat treater if indicated 10. Implement neutropenic guidelines as [...] any changes. Problem: Knowledge Deficit Goal: Patient/patient field representative demonstrates understanding of disease process, treatment [...] Moderate - High Risk Fall Score Description: [place] Fall Score of =/> 25 or indicated by [facility] Assessment Goal: Patient should be free from fall Description: Interventions: 1. [place] to environment 2. Hourly rounds addressing the [...] non-skid footwear 11. Teach patient and patient field representative to maintain environment for safety and [...] (cane, walker) within reach 19. Request patient field representative bring adaptive equipment/mobility aids from home or obtain and provide as needed 20. Consult pharmacy regarding effects of med's affecting mobility, cognition, and alternatives 21. Obtain physician order for PT if risk factors associated with mobility are present 22. Obtain physician order for OT as appropriate 23. Utilize diversional activities 24. Educate patient and patient field representative how to maintain a safe environment during visitationtimes (notify nurse prior to leaving bedside) 25. Consider appropriateness of medical or non-medical reception specialist 26. Set up voiding schedule as appropriate [...] shift. ;; * Discharge Planning Note - JEEWL Crenshaw - 01/22/2024 11:17 AM EDT DISCHARGE PLANNING NOTE DC plan now will be IP rehab, GABRIEL notified that pt is now requesting to go to IP rehab, pt does not feel like he is ready to go home yet. SW discussed IP rehab with pt and pt is now agreeable. SW reviewed IPR options with pt and pt would like to try [facility] IP rehab. Referral sent. Awaiting acceptance. W/C tx cert in dc packet. - JEWEL Crenshaw 01/22/24 11:19 AM * Discharge Planning Note - Jackie Caal - 01/22/2024 11:13 AM EDT DISCHARGE PLANNING NOTE Referral to [facility] in [place] (P# ; F# ) * PT/OT/BAR WAITER/WAITRESS - ALICIA Banda - 01/22/2024 8:31 AM [...] belt, RW Weight Bearing Status: WBAT RLE Telemetry/Process Tech: No Oxygen Used: room air Other: fall [...] and was able to exchange L sock. Flight Operations Coordinator assisted with R foot. Pt then donned [...] and was able to exchange L sock. Flight Operations Coordinator assisted with R foot. Pt then donned [...] 1610 Katlin Goins, SERVIN/L Progressing 01/20/24 0945 Katlinyaneth Goins, SERVIN/L Progressing 01/19/24 1531 Nano Maher, SERVIN/L Progressing Goal Note filed on 01/22/24 1054 by Ludy Ireland OTR/Lanie Evaluation of progress towards goal: Problem: Bed Mobility Dates: Start: 01/19/24 Disciplines: OT Goal: Patient will perform bed mobility with Modified [place] Dates: Start: 01/19/24 Expected End: 02/09/24 Description: [...] Patient will perform functional mobility with Modified [place] Dates: Start: 01/19/24 Expected End: 02/09/24 Description: [...] Ludy Ireland OTR/L Progressing 01/21/24 1650 Ludy Vogt SERVIN/L Progressing [...] OTR/Lanie Evaluation of progress towards goal: Problem: Transfers Dates: Start: 01/19/24 Disciplines: OT Goal: Patient will perform transfers with Modified [place] Dates: Start: 01/19/24 Expected End: 02/09/24 Description: Goal Description: Disciplines: OT Outcomes Date/Time User Outcome 01/22/24 1054 Ludy Ireland OTR/L Progressing 01/21/24 1650 Lduy Vogt, SERVIN/L Progressing 01/21/24 1053 Ludy Vogt, SERVIN/L Not Progressing 01/20/24 1610 Katlin Goins, SERVIN/L Progressing 01/20/24 0945 Katlin Goins, SERVIN/L Progressing 01/19/24 1531 Nano Maher, SERVIN/L Progressing Goal Note filed on 01/22/24 1054 by Ludy Ireland OTR/L Evaluation of progress towards goal: Occupational Therapy Care Plan (Resolved) There are no resolved problems. Principal Problem: Closed fracture of right hip, [place] Active Problems: Closed displaced intertrochanteric fracture of right femur ([facility] * PT/OT/BAR WAITER/WAITRESS - Shahrzad Garcias PTA - 01/22/2024 8:30 [...] 6 Clicks: Basic Mobility Raw Score: 14 [facility] G Code Modifier: CK Therapy Plan PT [...] RW Weight Bearing Status: WBAT R LE Telemetry/Process Tech: No Oxygen Used: room air Other: fall [...] complete. Pt used gait belt as leg textile screen maker to assist RLE OOB. Pt tends to hold his breath with transitions and displays difficulty foloring direction for breathing technique from instructional writer. Pt reporting dizziness intially upon sitting [...] Date/Time User Outcome 01/22/24 1051 Shahrzad Garcias, COAGULATING BATH MIXER Progressing 01/21/24 1741 Shahrzad Garcias, COAGULATING BATH MIXER Progressing 01/21/24 1309 Shahrzad Garcias, COAGULATING BATH MIXER Progressing 01/20/24 1607 Shahrzad Garcias, COAGULATING BATH MIXER Progressing 01/20/24 1036 Shahrzad Garcias, COAGULATING BATH MIXER Progressing 01/19/24 1721 Shahrzad Garcias PTA Progressing Goal Note filed on 01/22/24 1051 by Shahrzad Garcias PTA Evaluation of progress towards goal: Problem: Bed Mobility Dates: Start: 01/19/24 Disciplines: PT Goal: Patient will perform bed mobility with Minimum Assist Dates: Start: 01/19/24 Expected End: 02/02/24 Description: Goal Description: Disciplines: PT Outcomes Date/Time User Outcome 01/22/24 1051 Shahrzad Garcias COAGULATING BATH MIXER Progressing 01/21/24 1741 Shahrzad Garcias, COAGULATING BATH MIXER Progressing 01/21/24 1309 Shahrzad Garcias, COAGULATING BATH MIXER Progressing 01/20/24 1607 Shahrzad Garcias, COAGULATING BATH MIXER Progressing 01/20/24 1036 Shahrzad Garcias, COAGULATING BATH MIXER Progressing 01/19/24 1721 Shahrzad Garcias PTA Progressing Goal Note filed on 01/22/24 1051 by Shahrzad Garcias PTA Evaluation of progress towards goal: Problem: Gait Dates: Start: 01/19/24 Disciplines: PT Goal: Patient will perform gait with Contact Guard Dates: Start: 01/19/24 Expected End: 02/02/24 Description: With_rw___,__150__feet Goal Description: Disciplines: PT Outcomes Date/Time User Outcome 01/22/24 1051 Shahrzad Garcias PTA Progressing 01/21/24 1741 Shahrzad Garcias, COAGULATING BATH MIXER Progressing 01/21/24 1309 Shahrzad Garcias, COAGULATING BATH MIXER Progressing 01/20/24 1607 Shahrzad Garcias, COAGULATING BATH MIXER Progressing 01/20/24 1036 Shahrzad Garcias, COAGULATING BATH MIXER Progressing 01/19/24 1721 Shahrzad Garcias PTA Progressing [...] Garcias, SHERYL Progressing 01/21/24 1309 Shahrzad Garcias, COAGULATING BATH MIXER Not Progressing 01/20/24 1036 Shahrzad Garcias, COAGULATING BATH MIXER Progressing 01/19/24 1721 Shahrzad Garcias PTA Progressing [...] Garcias, SHERYL Progressing 01/21/24 1309 Shahrzad Garcias, COAGULATING BATH MIXER Progressing 01/20/24 1607 Shahrzad Garcias, COAGULATING BATH MIXER Progressing 01/20/24 1036 Shahrzad Garcias, COAGULATING BATH MIXER Progressing 01/19/24 1721 Shahrzad Garcias PTA Progressing Goal Note filed on 01/22/24 1051 by Shahrzad Garcias PTA Evaluation of progress towards goal: Problem: Transfers Dates: Start: 01/19/24 Disciplines: PT Goal: Patient will perform transfers with Contact Guard Dates: Start: 01/19/24 Expected End: 02/02/24 Description: Goal Description: Disciplines: PT Outcomes Date/Time User Outcome 01/22/24 1051 Shahrzad Garcias, COAGULATING BATH MIXER Progressing 01/21/24 1741 Shahrzad Garcias, COAGULATING BATH MIXER Progressing 01/21/24 1309 Shahrzad Garcias, COAGULATING BATH MIXER Not Progressing 01/20/24 1607 Shahrzad Garcias, COAGULATING BATH MIXER Progressing 01/20/24 1036 Shahrzad Garcias, COAGULATING BATH MIXER Progressing 01/19/24 1721 Shahrzad Garcias PTA Progressing Goal Note filed on 01/22/24 1051 by Shahrzad Garcias PTA Evaluation of progress towards goal: Physical Therapy Care Plan (Resolved) There are no resolved problems. Principal Problem: Closed fracture of right hip, initial encounter ([facility]) Active Problems: Closed displaced intertrochanteric fracture of right femur ([facility]) Associated attestation - Brady Jauregui, PT - 01/22/2024 4:19 PM EDT I have reviewed and agree with this note and education documentation for this visit. * Plan of Care - Santi Parks RN - 01/21/2024 9:31 PM EDT Problem: Pain Goal: Patient goal is pain score less than 4, able to rest, and participant in treatment plan as appropriate Description: INTERVENTIONS: 1. Encourage patient or legal field representative to report early pain and ask [...] per policy 9. Teach patient or legal field representative interventions for comforting Outcome: Progressing Note: [...] at the bedside 7. Instruct patient/ patient field representative about use of safety devices 8. Include patient/ patient field representative in decisions related to safety Outcome: [...] hygiene technique 7. Identify and instruct patient/patient field representative in use of appropriate isolation precautionsfor identified infection/symptoms 8. Provide and discuss with patient/patient field representative on educational MDRO sheet 9. Encourage and monitor nutritional status daily and consult heat treater if indicated 10. Implement neutropenic guidelines as needed 11. Review exposure to history of communicable disease and recent travel history on admission 12. Encourage annual influenza vaccine 13. Encourage pneumonia vaccine Outcome: Progressing Note: Evaluation of progress towards goal: Pt afebrile at this time, continue to monitor for signs infection Problem: Knowledge Deficit Goal: Patient/patient field representative demonstrates understanding of disease process, treatment plan,medications, and discharge instructions Description: INTERVENTIONS 1. Complete learning assessment and assess knowledge base 2. Provide teaching at level of understanding 3. Provide teaching via preferred learning method(s) Outcome: Progressing Note: Evaluation of progress towards goal: POC discussed with patient. Questions answered PRN. * PT/OT/BAR WAITER/WAITRESS - Ludy Hullinger, SERVIN/Lanie - 01/21/2024 5:01 PM EDT Occupational Therapy [...] RW Weight Bearing Status: WBAT Rt LE Telemetry/Process Tech: No Oxygen Used: room air Other: fall [...] Outcomes Date/Time User Outcome 01/21/24 1650 Ludy Sin, SERVIN/L Progressing 01/21/24 1053 Ludymadison Vogt, SERVIN/L Progressing 01/20/24 1610 Katlin Goins, SERVIN/L Progressing 01/20/24 0945 Katlin Goins, SERVIN/L Progressing 01/19/24 1531 Nano Maher, SERVIN/L Progressing Problem: Bed Mobility Dates: Start: 01/19/24 Disciplines: OT Goal: Patient will perform bed mobility with Modified [place] Dates: Start: 01/19/24 Expected End: 02/09/24 Description: Goal Description: Disciplines: OT Outcomes Date/Time User Outcome 01/21/24 1053 Ludy Vogt, SERVIN/L Progressing 01/20/24 1610 Katlin Goins, SERVIN/L Progressing 01/20/24 0945 Katlin Goins, SERVIN/L Progressing 01/19/24 1531 Nano Maher, SERVIN/L Progressing Problem: Functional Mobility Dates: Start: 01/19/24 Disciplines: OT Goal: Patient will perform functional mobility with Modified [place] Dates: Start: 01/19/24 Expected End: 02/09/24 Description: [...] Progressing 01/19/24 1531 Nano Gunnar, SERVIN/L Progressing Problem: Standing Balance Dates: Start: 01/19/24 Disciplines: OT Goal: Improve balance to good Dates: Start: 01/19/24 Expected End: 02/09/24 Description: Static Dynamic Disciplines: OT Outcomes Date/Time User Outcome 01/21/24 1650 Ludy Vogt, SERVIN/L Progressing 01/21/24 1053 Ludy Vogt, SERVIN/L Progressing 01/20/24 1610 Katlin Goins, SERVIN/L Progressing 01/20/24 0945 Katlin Goins, SERVIN/L Progressing 01/19/24 1531 Nano Gunnar, SERVIN/L Progressing Problem: Strength Dates: Start: 01/19/24 Disciplines: OT Goal: Improve strength Dates: Start: 01/19/24 Expected End: 02/09/24 Description: Of extremity/ location: Tolerate bilat UE exercises to increase strength and endurancefor self care tasks. To facilitate: Disciplines: OT Outcomes Date/Time User Outcome 01/21/24 1650 Ludy Vogt, SERVIN/L Progressing 01/21/24 1053 Ludy Vogt, SERVIN/L Progressing 01/19/24 1531 Nano Maher, SERVIN/L Progressing Problem: Transfers Dates: Start: 01/19/24 Disciplines: OT Goal: Patient will perform transfers with Modified [place] Dates: Start: 01/19/24 Expected End: 02/09/24 Description: Goal Description: Disciplines: OT Outcomes Date/Time User Outcome 01/21/24 1650 Ludy Vogt, SERVIN/L Progressing 01/21/24 1053 Ludy Vogt SERVIN/L Not Progressing 01/20/24 1610 Katlin Goins SERVIN/L Progressing 01/20/24 0945 Katlin Goins SERVIN/L Progressing 01/19/24 1531 CHARU HernandezA/L Progressing Occupational Therapy Care Plan (Resolved) There are no resolved problems. Principal Problem: Closed fracture of right hip, initial encounter ([facility]) Active Problems: Closed displaced intertrochanteric fracture of right femur ([facility]) Associated attestation - Ludy Ireland OTR/L - [...] Description: INTERVENTIONS: 1. Encourage patient or legal field representative to report early pain and ask [...] per policy 9. Teach patient or legal field representative interventions for comforting Outcome: Progressing Note: [...] at the bedside 7. Instruct patient/ patient field representative about use of safety devices 8. Include patient/ patient field representative in decisions related to safety Outcome: [...] hygiene technique 7. Identify and instruct patient/patient field representative in use of appropriate isolation precautionsfor identified infection/symptoms 8. Provide and discuss with patient/patient field representative on educational MDRO sheet 9. Encourage and monitor nutritional status daily and consult heat treater if indicated 10. Implement neutropenic guidelines as needed 11. Review exposure to history of communicable disease and recent travel history on admission 12. Encourage annual influenza vaccine 13. Encourage pneumonia vaccine Outcome: Progressing Problem: Knowledge Deficit Goal: Patient/patient field representative demonstrates understanding of disease process, treatment [...] discharge planning process 5. Communicate referral to personal development educator as appropriate 6. Communicate referral to heat treater as appropriate 7. Collaborate with case management/social media coordinator for discharge needs Outcome: Progressing Problem: Moderate - High Risk Fall Score Description: [place] Fall Score of =/> 25 or indicated by [facility] Assessment Goal: Patient should be free from fall Description: Interventions: 1. [place] to environment 2. Hourly rounds addressing the [...] non-skid footwear 11. Teach patient and patient field representative to maintain environment for safety and [...] (cane, walker) within reach 19. Request patient field representative bring adaptive equipment/mobility aids from home or obtain and provide as needed 20. Consult pharmacy regarding effects of med's affecting mobility, cognition, and alternatives 21. Obtain physician order for PT if risk factors associated with mobility are present 22. Obtain physician order for OT as appropriate 23. Utilize diversional activities 24. Educate patient and patient field representative how to maintain a safe environment during visitationtimes (notify nurse prior to leaving bedside) 25. Consider appropriateness of medical or non-medical reception specialist 26. Set up voiding schedule as appropriate (every 2 hours) Outcome: Progressing Note: Evaluation of progress towards goal: Fall precautions in place including bed locked and in lowest position, call light within reach and non skid socks on. Patient calls out appropriately for help. Hourly rounding in place. * PT/OT/BAR WAITER/WAITRESS - Shahrzad Garcias, COAGULATING BATH MIXER - 01/21/2024 3:32 PM EDT Physical Therapy [...] RW Weight Bearing Status: WBAT Rt LE Telemetry/Process Tech: No Oxygen Used: room air Other: fall [...] Garcias PTA Progressing 01/21/24 1309 Shahrzad Garcias, SHERYL Progressing 01/20/24 1607 Shahrzad Garcias, COAGULATING BATH MIXER Progressing 01/20/24 1036 Shahrzad Garcias, COAGULATING BATH MIXER Progressing 01/19/24 1721 Shahrzad Garcias PTA Progressing Goal Note filed on 01/21/24 174 by Shahrzad Garcias PTA Evaluation of progress towards goal: Problem: Bed Mobility Dates: Start: 01/19/24 Disciplines: PT Goal: Patient will perform bed mobility with Minimum Assist Dates: Start: 01/19/24 Expected End: 02/02/24 Description: Goal Description: Disciplines: PT Outcomes Date/Time User Outcome 01/21/24 1741 Shahrzad Garcias, COAGULATING BATH MIXER Progressing 01/21/24 1309 Shahrzad Garcias, COAGULATING BATH MIXER Progressing 01/20/24 1607 Shahrzad Garcias, COAGULATING BATH MIXER Progressing 01/20/24 1036 Shahrzad Garcias, COAGULATING BATH MIXER Progressing 01/19/24 1721 Shahrzad Garcias PTA Progressing Goal Note filed on 01/21/24 174 by Shahrzad Garcias PTA Evaluation of progress towards goal: Problem: Gait Dates: Start: 01/19/24 Disciplines: PT Goal: Patient will perform gait with Contact Guard Dates: Start: 01/19/24 Expected End: 02/02/24 Description: With_rw___,__150__feet Goal Description: Disciplines: PT Outcomes Date/Time User Outcome 01/21/24 174 Shahrzad Garcias PTA Progressing 01/21/24 1309 Shahrzad Garcias, COAGULATING BATH MIXER Progressing 01/20/24 1607 Shahrzad Garcias, COAGULATING BATH MIXER Progressing 01/20/24 1036 Shahrzad Garcias, COAGULATING BATH MIXER Progressing 01/19/24 1721 Shahrzad Garcias PTA Progressing [...] PTA Not Progressing 01/20/24 1036 Shahrzad Garcias, COAGULATING BATH MIXER Progressing 01/19/24 1721 Shahrzad Garcias PTA Progressing Goal Note filed on 01/21/24 174 by Shahrzad Garcias PTA Evaluation of progress towards goal: Problem: Strength Dates: Start: 01/19/24 Disciplines: PT Goal: Improve strength Dates: Start: 01/19/24 Expected End: 02/02/24 Description: Of extremity/ location:Complete 20 reps bilat UE/LE ex's To facilitate: Disciplines: PT Outcomes Date/Time User Outcome 01/21/24 174 Shahrzad Garcias COAGULATING BATH MIXER Progressing 01/21/24 1309 Shahrzad Garcias, COAGULATING BATH MIXER Progressing 01/20/24 1607 Shahrzad Garcias, COAGULATING BATH MIXER Progressing 01/20/24 1036 Shahrzad Garcias, COAGULATING BATH MIXER Progressing 01/19/24 1721 Shahrzad Garcias PTA Progressing [...] Closed fracture of right hip, initial encounter ([facility]) Active Problems: Closed displaced intertrochanteric fracture of right femur ([facility] Associated attestation - Brady Jauregui PT - 01/22/2024 4:19 PM EDT I have reviewed and agree with this note and education documentation for this visit. * PT/OT/BAR WAITER/WAITRESS - NALLELY Grey - 01/21/2024 11:13 AM [...] None Scoring Daily Activity Raw Score: 16 [facility] G Code Modifier: CK 01/21/24 1043 UE [...] pole Weight Bearing Status: WBAT Rt LE Telemetry/Process Tech: No Oxygen Used: room air Other: fall [...] pt utilizing looped gait belt as leg textile screen maker for RLE to advance toward EOB. Pt [...] Patient will perform bed mobility with Modified [place] Dates: Start: 01/19/24 Expected End: 02/09/24 Description: Goal Description: Disciplines: OT Outcomes Date/Time User Outcome 01/21/24 1053 Ludy Vogt, SERVIN/L Progressing 01/20/24 1610 Katlin Goins SERVIN/L Progressing 01/20/24 0945 Katlin Goins, SERVIN/L Progressing 01/19/24 1531 Nano Maher, SERVIN/L Progressing Problem: Functional Mobility Dates: Start: 01/19/24 Disciplines: OT Goal: Patient will perform functional mobility with Modified [place] Dates: Start: 01/19/24 Expected End: 02/09/24 Description: Goal Description: Disciplines: OT Outcomes Date/Time User Outcome 01/21/24 1053 Ludy Vogt, SERVIN/L Progressing 01/20/24 1610 Katlin Goins SERVIN/L Progressing 01/20/24 0945 Katlin Buster, SERVIN/L [...] Goal: Patient will perform transfers with Modified [place] Dates: Start: 01/19/24 Expected End: 02/09/24 Description: Goal Description: Disciplines: OT Outcomes Date/Time User Outcome 01/21/24 1053 Ludy Vogt SERVIN/L Not Progressing 01/20/24 1610 Katlin Goins, SERVIN/L Progressing 01/20/24 0945 Katlin Buster, SERVIN/L Progressing 01/19/24 1531 Nano Maher SERVIN/L Progressing Occupational Therapy Care Plan (Resolved) There are no resolved problems. Principal Problem: Closed fracture of right hip, initial encounter [place] Active Problems: Closed displaced intertrochanteric fracture of right femur ([facility] Associated attestation - Virgil Nunes OTR/Lanie - 01/21/2024 12:48 PM EDT I have reviewed and agree with this note and education documentation for this visit. * PT/OT/BAR WAITER/WAITRESS - Shahrzad Garcias PTA - 01/21/2024 9:49 [...] 6 Clicks: Basic Mobility Raw Score: 11 [facility] G Code Modifier: CL Therapy Plan PT [...] pole Weight Bearing Status: WBAT Rt LE Telemetry/Process Tech: No Oxygen Used: room air Other: fall [...] railing required to complete. Use of limb textile screen maker for RLE support OOB. Increased time and [...] Date/Time User Outcome 01/21/24 1309 Shahrzad Garcias COAGULATING BATH MIXER Progressing 01/20/24 1607 Shahrzad Garcias, SHERYL Progressing [...] Closed fracture of right hip, initial encounter ([facility]) Active Problems: Closed displaced intertrochanteric fracture of right femur ([facility] Associated attestation - Carlos Brar, PT - 01/21/2024 3:57 PM EDT I have reviewed and agree with this note and education documentation for this visit. * Plan of Care - Virgil Gonzalez RN - 01/21/2024 2:05 AM EDT Problem: Pain Goal: Patient goal is pain score less than 4, able to rest, and participant in treatment plan as appropriate Description: INTERVENTIONS: 1. Encourage patient or legal field representative to report early pain and ask [...] per policy 9. Teach patient or legal field representative interventions for comforting Outcome: Not Progressing [...] it will have on his body. * PT/OT/BAR WAITER/WAITRESS - NALLELY Meneses - 01/20/2024 4:21 PM [...] environment. Pt utilized gait belt as leg textile screen maker with cues for tech to A RLE [...] (-) Other: Pt completed standing marches with COAGULATING BATH MIXER with heavy BUE support on RW. Pt [...] Patient will perform bed mobility with Modified [place] Dates: Start: 01/19/24 Expected End: 02/09/24 Description: Goal Description: Disciplines: OT Outcomes Date/Time User Outcome 01/20/24 1610 Katlin Goins SERVIN/L Progressing 01/20/24 0945 Katlin Goins SERVIN/L Progressing 01/19/24 1531 Nano Maher SERVIN/L Progressing Problem: Functional Mobility Dates: Start: 01/19/24 Disciplines: OT Goal: Patient will perform functional mobility with Modified [place] Dates: Start: 01/19/24 Expected End: 02/09/24 Description: Goal Description: Disciplines: OT Outcomes Date/Time User Outcome 01/20/24 1610 Katlin Goins, SERVIN/L Progressing 01/20/24 0945 Katlin Goins SERVIN/L Progressing 01/19/24 1531 Nano Maher [...] Katlin Buster, SERVIN/L Progressing 01/20/24 0945 Katlin Goins, SERVIN/L Progressing 01/19/24 1531 CHARU HernandezA/Lanie Progressing [...] Goal: Patient will perform transfers with Modified [place] Dates: Start: 01/19/24 Expected End: 02/09/24 Description: Goal Description: Disciplines: OT Outcomes Date/Time User Outcome 01/20/24 1610 Katlin Goins, SERVIN/L Progressing 01/20/24 0945 Katlin Goins, SERVIN/L Progressing 01/19/24 1531 CHARU HernandezA/Lanie Progressing Occupational Therapy Care Plan (Resolved) There are no resolved problems. Principal Problem: Closed fracture of right hip, initial encounter ([facility]) Active Problems: Closed displaced intertrochanteric fracture of right femur ([facility]) Associated attestation - Virgil Nunes OTR/L - 01/21/2024 12:48 PM EDT I have reviewed and agree with this note and education documentation for this visit. * PT/OT/BAR WAITER/WAITRESS - Shahrzad Garcias PTA - 01/20/2024 3:15 [...] bed railing. Education provided on useof limb textile screen maker to assist RLE OOB. Pt able to [...] Closed fracture of right hip, initial encounter ([facility]) Active Problems: Closed displaced intertrochanteric fracture of right femur ([facility]) Associated attestation - Carlos Brar PT - 01/21/2024 3:57 PM EDT I have reviewed and agree with this note and education documentation for this visit. * PT/OT/BAR WAITER/WAITRESS - NALLELY Meneses - 01/20/2024 10:11 AM [...] Utilized gait belt to act as leg textile screen maker; instructed pt to lift R leg to [...] 09Elpidio Goins SERVIN/L Progressing 01/19/24 1531 CHARU HernandezA/L Progressing Problem: Bed Mobility Dates: Start: 01/19/24 Disciplines: OT Goal: Patient will perform bed mobility with Modified [place] Dates: Start: 01/19/24 Expected End: 02/09/24 Description: Goal Description: Disciplines: OT Outcomes Date/Time User Outcome 01/20/24 09Elpidio Goins SERVIN/L Progressing 01/19/24 1531 CHARU HernandezA/Lanie Progressing Problem: Functional Mobility Dates: Start: 01/19/24 Disciplines: OT Goal: Patient will perform functional mobility with Modified [place] Dates: Start: 01/19/24 Expected End: 02/09/24 Description: Goal Description: Disciplines: OT Outcomes Date/Time User Outcome 01/20/24 09Elpidio Goins SERVIN/L Progressing 01/19/24 1531 Nano Maher SERVIN/Lanie Progressing Problem: Other (Customize) Dates: Start: 01/19/24 Disciplines: OT Goal: Improve Dates: Start: 01/19/24 Expected End: 02/09/24 Description: Goal Description: Complete ADLs [place] with AE/DME Disciplines: OT Outcomes Date/Time User Outcome 01/20/24Elpidio Goins SERVIN/Lanie Progressing Problem: Sitting Balance Dates: Start: 01/19/24 Disciplines: OT Goal: Improve balance to good Dates: Start: 01/19/24 Expected End: 02/09/24 Description: Static Dynamic Disciplines: OT Outcomes Date/Time User Outcome 01/20/24 09Elpidio CHARU MenesesA/Lanie Progressing 01/19/24 1531 MALATHI Hernandez/Lanie Progressing Problem: Standing Balance Dates: Start: 01/19/24 Disciplines: OT Goal: Improve balance to good Dates: Start: 01/19/24 Expected End: 02/09/24 Description: Static Dynamic Disciplines: OT Outcomes Date/Time User Outcome 01/20/24 09Elpidio CHARU MenesesA/Lanie Progressing 01/19/24 1531 MALATHI Hernandez/Lanie Progressing Problem: Strength Dates: Start: 01/19/24 Disciplines: OT Goal: Improve strength Dates: Start: 01/19/24 Expected End: 02/09/24 Description: Of extremity/ location: Tolerate bilat UE exercises to increase strength and endurancefor self care tasks. To facilitate: Disciplines: OT Outcomes Date/Time User Outcome 01/19/24 1531 MALATHI Hernandez/Lanie Progressing Problem: Transfers Dates: Start: 01/19/24 Disciplines: OT Goal: Patient will perform transfers with Modified [place] Dates: Start: 01/19/24 Expected End: 02/09/24 Description: Goal Description: Disciplines: OT Outcomes Date/Time User Outcome 01/20/24Elpidio MALATHI Meneses/Lanie Progressing 01/19/24 1531 MALATHI Hernandez/Lanie Progressing Occupational Therapy Care Plan (Resolved) There are no resolved problems. Principal Problem: Closed fracture of right hip, initial encounter ([facility]) Active Problems: Closed displaced intertrochanteric fracture of right femur ([facility] Associated attestation - Virgil Nunes OTR/L - 01/20/2024 1:17 PM EDT I have reviewed and agree with this note and education documentation for this visit. * PT/OT/BAR WAITER/WAITRESS - Shahrzad Garcias PTA - 01/20/2024 8:17 [...] EOB. Use of gait belt as limb textile screen maker for RLE with fair- poor carryover. Pt displayed decreased ability to scoot hips to EOB d/t pain in R hip and required assistance from instructional writer to complete. Pt denied dizziness with [...] handles to complete. First attempt was unsuccessful. Flight Operations Coordinator educated pt on use of momentum and [...] Closed fracture of right hip, initial encounter ([facility]) Active Problems: Closed displaced intertrochanteric fracture of right femur ([facility]) Associated attestation - Brady Jauregui PT - 01/20/2024 3:30 PM EDT I have reviewed and agree with this note and education documentation for this visit. * Discharge Planning Note - Jackie Caal - 01/19/2024 3:48 PM EDT DISCHARGE PLANNING NOTE Referral to [address]- [place] (P# ; F# ); [facility] (P#[phone] ; F# [phone]) and [facility] ([place]- P# ; F# ) ([place], [place] P# ; F#) * PT/OT/BAR WAITER/WAITRESS - NALLELY Hernandez - 01/19/2024 3:32 PM [...] User Outcome 01/19/24 153Yohana MaherCHARUA/Lanie Progressing Problem: Bed Mobility Dates: Start: 01/19/24 Disciplines: OT Goal: Patient will perform bed mobility with Modified [place] Dates: Start: 01/19/24 Expected End: 02/09/24 Description: Goal Description: Disciplines: OT Outcomes Date/Time User Outcome 01/19/24 153Yohana AntonioCHARU fieldA/Lanie Progressing Problem: Functional Mobility Dates: Start: 01/19/24 Disciplines: OT Goal: Patient will perform functional mobility with Modified [place] Dates: Start: 01/19/24 Expected End: 02/09/24 Description: [...] User Outcome 01/19/24 153Yohana MaherCHARUA/Lanie Progressing Problem: Standing Balance Dates: Start: 01/19/24 Disciplines: OT Goal: Improve balance to good Dates: Start: 01/19/24 Expected End: 02/09/24 Description: Static Dynamic Disciplines: OT Outcomes Date/Time User Outcome 01/19/24 Shahnaz AntonioCHARU fieldA/Lanie Progressing Problem: Strength Dates: Start: 01/19/24 Disciplines: OT Goal: Improve strength Dates: Start: 01/19/24 Expected End: 02/09/24 Description: Of extremity/ location: Tolerate bilat UE exercises to increase strength and endurancefor self care tasks. To facilitate: Disciplines: OT Outcomes Date/Time User Outcome 01/19/241530 Nano CHARU MaherA/Lanie Progressing Problem: Transfers Dates: Start: 01/19/24 Disciplines: OT Goal: Patient will perform transfers with Modified [place] Dates: Start: 01/19/24 Expected End: 02/09/24 Description: Goal Description: Disciplines: OT Outcomes Date/Time User Outcome 01/19/24 6655 NALLELY Hernandez Progressing Occupational Therapy Care Plan (Resolved) There are no resolved problems. Principal Problem: Closed fracture of right hip, initial encounter ([facility] Active Problems: Closed displaced intertrochanteric fracture of right femur ([facility]) Associated attestation - Virgil Nunes OTR/Lanie - [...] home care arranged. Referral's were placed to [address] (1st choice) & [facility], await acceptance. - JEWEL Crenshaw 01/19/24 3:08 PM * PT/OT/BAR WAITER/WAITRESS - Shahrzad Garcias PTA - 01/19/2024 1:55 [...] transition. Pt had difficutly following direction/cueing from instructional writer. Visual demo and tactile cueing provided [...] Disciplines: PT Outcomes Date/Time User Outcome 01/19/241720 Sharhzad Garcias PTA Progressing Goal Note filed on [...] Disciplines: PT Outcomes Date/Time User Outcome 01/19/241720 Shharzad Garcias PTA Progressing Goal Note filed on 01/19/241720 by Shahrzad Garcias PTA Evaluation of progress towards goal: Problem: Transfers Dates: Start: 01/19/24 Disciplines: PT Goal: Patient will perform transfers with Contact Guard Dates: Start: 01/19/24 Expected End: 02/02/24 Description: Goal Description: Disciplines: PT Outcomes Date/Time User Outcome 01/19/24 172 Shahrzad Garcias PTA Progressing Goal Note filed on 01/19/24 172 by Shahrzad Garcias PTA Evaluation of progress towards goal: Physical Therapy Care Plan (Resolved) There are no resolved problems. Principal Problem: Closed fracture of right hip, initial encounter ([facility] Active Problems: Closed displaced intertrochanteric fracture of right femur ([facility]) Associated attestation - Brady Jauregui PT - 01/20/2024 3:30 PM EDT I have reviewed and agree with this note and education documentation for this visit. * PT/OT/BAR WAITER/WAITRESS - Lindsay Infante, PT - 01/19/2024 1:52 PM EDT Physical Therapy Evaluation Discharge Recommendations PT Recommendations: Inpatient Rehab Inpatient Rehab Criteria: All inpatient rehab criteria expected to be met Therapy Plan Need for skilled Physical Therapy to address deficits in functional mobility due to a status decline resulting from hospitalization. Pt to [facility] via EMS with Rt LE pain. [...] from lisinopril Chronic pain disorder Colon cancer ([facility]) COPD (chronic obstructive pulmonary disease) ([facility]) Depression Diabetes mellitus type 2, controlled ([facility]) Fibromyalgia, primary Fracture of right hip, closed, initial encounter ([facility]) 01/17/2024 GERD (gastroesophageal reflux disease) Hyperlipidemia Hypertension Insulin-treated type 2 diabetes mellitus ([facility]) Joint pain Kidney stones Liver disease Low back pain Neck pain Obesity Osteoarthritis Visual impairment Past Surgical History: Procedure Laterality Date BACK SURGERY COLON SURGERY resection, 2018, [facility] DAVINCI REPAIR HERNIA VENTRAL N/A 10/27/2021 Performed by Ridge Cedillo MD at [facility] pt had all teeth removed HERNIA REPAIR x's 2 INSERTION INTRAMEDULLARY NAIL FEMUR-TFNA HIP FX Right 01/18/2024 Performed by Ang Figueroa MD at [facility] 2008 foot, infected foot 6 Clicks: Basic Mobility [...] Closed fracture of right hip, initial encounter ([facility]) Active Problems: Closed displaced intertrochanteric fracture of right femur ([facility]) * PT/OT/BAR WAITER/WAITRESS - WILLARD Chavira/Lanie - 01/19/2024 1:03 PM EDT Occupational Therapy [...] None Scoring Daily Activity Raw Score: 16 [facility] G Code Modifier: CK Therapy Plan Need for skilled Occupational Therapy to address deficits in ADL independence and functional mobility due to a status decline resulting from hospitalization. Pt to [facility] via EMS with Rt LE pain. [...] from lisinopril Chronic pain disorder Colon cancer ([facility]) COPD (chronic obstructive pulmonary disease) ([facility]) Depression Diabetes mellitus type 2, controlled ([facility]) Fibromyalgia, primary Fracture of right hip, closed, initial encounter ([facility]) 01/17/2024 GERD (gastroesophageal reflux disease) Hyperlipidemia Hypertension Insulin-treated type 2 diabetes mellitus ([facility]) Joint pain Kidney stones Liver disease Low back pain Neck pain Obesity Osteoarthritis Visual impairment Past Surgical History: Procedure Laterality Date BACK SURGERY COLON SURGERY resection, 2017, [facility] DAVINCI REPAIR HERNIA VENTRAL N/A 10/27/2021 Performed by Ridge Cedillo MD at [facility] pt had all teeth removed HERNIA REPAIR x's 2 INSERTION INTRAMEDULLARY NAIL FEMUR-TFNA HIP FX Right 01/18/2024 Performed by Ang Figueroa MD at [facility] 2007 foot, infected foot Chief [...] shower chair) Other : No AE/DME needs COAGULATING BATH MIXER Prior Function Lives With: Alone Receives Help [...] (shoulder chronic pain. shoulder and elbow 4-/5. Glass Presser 3+/5) Activity Tolerance Endurance: Tolerates >30 minutes [...] Patient will perform bed mobility with Modified [place] Dates: Start: 01/19/24 Expected End: 02/09/24 Description: Goal Description: Disciplines: OT Problem: Functional Mobility Dates: Start: 01/19/24 Disciplines: OT Goal: Patient will perform functional mobility with Modified [place] Dates: Start: 01/19/24 Expected End: 02/09/24 Description: [...] Goal: Patient will perform transfers with Modified [place] Dates: Start: 01/19/24 Expected End: 02/09/24 Description: Goal Description: Disciplines: OT Occupational Therapy Care Plan (Resolved) There are no resolved problems. Principal Problem: Closed fracture of right hip, initial encounter ([facility]) Active Problems: Closed displaced intertrochanteric fracture of right femur ([facility]) * Plan of Care - Lian Silva RN - 01/19/2024 12:34 PM EDT Problem: Pain Goal: Patient goal is pain score less than 4, able to rest, and participant in treatment plan as appropriate Description: INTERVENTIONS: 1. Encourage patient or legal field representative to report early pain and ask [...] per policy 9. Teach patient or legal field representative interventions for comforting Outcome: Progressing Note: [...] at the bedside 7. Instruct patient/ patient field representative about use of safety devices 8. Include patient/ patient field representative in decisions related to safety Outcome: [...] be free from fall Description: Interventions: 1. [place] to environment 2. Hourly rounds addressing the [...] non-skid footwear 11. Teach patient and patient field representative to maintain environment for safety and [...] (cane, walker) within reach 19. Request patient field representative bring adaptive equipment/mobility aids from home or obtain and provide as needed 20. Consult pharmacy regarding effects of med's affecting mobility, cognition, and alternatives 21. Obtain physician order for PT if risk factors associated with mobility are present 22. Obtain physician order for OT as appropriate 23. Utilize diversional activities 24. Educate patient and patient field representative how to maintain a safe environment during visitationtimes (notify nurse prior to leaving bedside) 25. Consider appropriateness of medical or non-medical reception specialist 26. Set up voiding schedule as appropriate [...] hygiene technique 7. Identify and instruct patient/patient field representative in use of appropriate isolation precautionsfor identified infection/symptoms 8. Provide and discuss with patient/patient field representative on educational MDRO sheet 9. Encourage and monitor nutritional status daily and consult heat treater if indicated 10. Implement neutropenic guidelines as [...] Score of =/> 25 or indicated by [facility] Assessment Goal: Patient should be free from fall Description: Interventions: 1. [place] to environment 2. Hourly rounds addressing the [...] non-skid footwear 11. Teach patient and patient field representative to maintain environment for safety and [...] (cane, walker) within reach 19. Request patient field representative bring adaptive equipment/mobility aids from home or obtain and provide as needed 20. Consult pharmacy regarding effects of med's affecting mobility, cognition, and alternatives 21. Obtain physician order for PT if risk factors associated with mobility are present 22. Obtain physician order for OT as appropriate 23. Utilize diversional activities 24. Educate patient and patient field representative how to maintain a safe environment during visitationtimes (notify nurse prior to leaving bedside) 25. Consider appropriateness of medical or non-medical reception specialist 26. Set up voiding schedule as appropriate [...] 1. IM nail right intertrochanteric hip fracture.- 20533 SURGEON: Ang Figueroa MD PRINTING WORKER SUPERVISOR: none ANESTHESIA: General. MEDICATIONS: ancef IV preop. [...] , damage to normal structure, PE, DVT, RI, stroke, nonunion, malunion, chronicpain, arthrosis, arthritis, limited [...] oriented during assessment. Pt was transferred to [facility] from [facility] where pt presented with leg and hip [...] Yes List Provided: Yes CarePort List Provided: [facility] Facility Initial DC Assessment Completed: Yes Patient [...] Description: INTERVENTIONS: 1. Encourage patient or legal field representative to report early pain and ask [...] per policy 9. Teach patient or legal field representative interventions for comforting Outcome: Progressing Note: [...] at the bedside 7. Instruct patient/ patient field representative about use of safety devices 8. Include patient/ patient field representative in decisions related to safety Outcome: [...] hygiene technique 7. Identify and instruct patient/patient field representative in use of appropriate isolation precautionsfor identified infection/symptoms 8. Provide and discuss with patient/patient field representative on educational MDRO sheet 9. Encourage and monitor nutritional status daily and consult heat treater if indicated 10. Implement neutropenic guidelines as needed 11. Review exposure to history of communicable disease and recent travel history on admission 12. Encourage annual influenza vaccine 13. Encourage pneumonia vaccine Outcome: Progressing Note: Evaluation of progress towards goal: Skin integrity remains in stable condition; remains w/o ss of infection, fever, pain, or increased discomfort. Problem: Knowledge Deficit Goal: Patient/patient field representative demonstrates understanding of disease process, treatment [...] discharge planning process 5. Communicate referral to personal development educator as appropriate 6. Communicate referral to heat treater as appropriate 7. Collaborate with case management/social media coordinator for discharge needs Outcome: Progressing Note: Evaluation of progress towards goal: Discharge planning in process; will continue to monitor for discharge needs. Problem: Moderate - High Risk Fall Score Description: [place] Fall Score of =/> 25 or indicated by [facility] Assessment Goal: Patient should be free from fall Description: Interventions: 1. [place] to environment 2. Hourly rounds addressing the [...] non-skid footwear 11. Teach patient and patient field representative to maintain environment for safety and [...] (cane, walker) within reach 19. Request patient field representative bring adaptive equipment/mobility aids from home or obtain and provide as needed 20. Consult pharmacy regarding effects of med's affecting mobility, cognition, and alternatives 21. Obtain physician order for PT if risk factors associated with mobility are present 22. Obtain physician order for OT as appropriate 23. Utilize diversional activities 24. Educate patient and patient field representative how to maintain a safe environment during visitationtimes (notify nurse prior to leaving bedside) 25. Consider appropriateness of medical or non-medical reception specialist 26. Set up voiding schedule as appropriate (every 2 hours) Outcome: Progressing Note: Evaluation of progress towards goal: Call light within reach. Remains free of fall or injury.Environment free of clutter. * PT/OT/BAR WAITER/WAITRESS - ALICIA Chavira - 01/18/2024 7:39 AM [...] be free from fall Description: Interventions: 1. [place] to environment 2. Hourly rounds addressing the [...] non-skid footwear 11. Teach patient and patient field representative to maintain environment for safety and [...] (cane, walker) within reach 19. Request patient field representative bring adaptive equipment/mobility aids from home or obtain and provide as needed 20. Consult pharmacy regarding effects of med's affecting mobility, cognition, and alternatives 21. Obtain physician order for PT if risk factors associated with mobility are present 22. Obtain physician order for OT as appropriate 23. Utilize diversional activities 24. Educate patient and patient field representative how to maintain a safe environment during visitationtimes (notify nurse prior to leaving bedside) 25. Consider appropriateness of medical or non-medical reception specialist 26. Set up voiding schedule as appropriate (every 2 hours) Outcome: Progressing Note: Evaluation of progress towards goal: Patient remains fall free at this time. Fall precautionsin place. * Situational Awareness - Jeff Martin MD - 01/17/2024 10:57 AM EDT ED called Report to [facility] for Admission Pt transferred to for Ortho, morbid obesity, fall with hip fracture requiring OR, plan for tomorrow. Background HLD, IDDM2. No h/o CAD. Reported no other hemodynamic or acute medical concerns at this time. JEFF MARTIN MD [facility]* Discharge Planning Note - Mendoza Pritchett - 01/22/2024 4:03 PM EDT DISCHARGE PLANNING NOTE CRF sent to [facility] Progress note* Discharge Planning Note - JEWEL Crenshaw - 01/22/2024 3:40 PM EDT Images from the original note were not included. DISCHARGE PLANNING NOTE DC plan will be IPR: [facility] has accepted pt. Pt is agreeable to [facility]. No auth needed. Pt will discharge today. Transport arranged for 5pm. Patient, RN, facility all aware. CRF sent. W/C tx cert in dc packet Services Requested: Services Requested Discharge Disposition: Acute rehab Acute Rehab Name: [facility] Acute Rehab Does the patient need discharge transportation arranged?: Yes Patient choice offered: Yes List Provided: Yes CarePort List Provided: [facility] Facility Initial DC Assessment Completed: Yes Patient Goals: Goals: Goals (pt-stated) Evaluation of progress towards goal: possible rehab placement vs home pending progress, recommendations and pt decision - JEWEL Crenshaw 01/22/24 3:44 PM [facility]06[facility] Hospital course Narrative* Abad Dialol DO - 01/22/2024 3:21 PM EDT Images from the original note were not included. DISCHARGE NOTE Demographics: Patient Name: Ruth Smith : 1970 DATE OF ADMISSION: 01/17/2024 DATE OF DISCHARGE: 01/22/2024 DISCHARGE DIAGNOSES: Principal Problem: Closed fracture of right hip, initial encounter ([facility]) Active Problems: Closed displaced intertrochanteric fracture of right femur ([facility] CONSULTANTS: Consulting Providers Provider Service Specialty MD Rubén Puri Physical Medicine and Rehabilitation [...] fall and right hip pain initially to [facility] and transferred to [facility]. Patient awake oriented x3 does not [...] Pending Labs: DISCHARGE INSTRUCTIONS: Disposition: Discharge to [facility] Condition:Stable Activity: activity as tolerated Diet: Adult nutrition supplements Adult diet Regular Texture; Consistent Carb 210 grams (1800 kcal) Follow up: Jd Du PA-C [address] [address] For most accurate medication list, please review [...] Your Medications These medications were sent to THE [id number] - [address] [address] calcium citrate 200 mg (950 mg) tablet cholecalciferol (vitamin D3) 2,000 units tablet ergocalciferol 1,250 mcg (50,000 unit) capsule sennosides-docusate sodium 8.6-50 mg Information about where to get these medications is not yet available Ask your nurse or doctor about these medications enoxaparin 40 mg/0.4 mL syringe 45 minutes were spent on discharging this patient. documented in this [facility]24 Progress note* Discharge Planning Note - Cata Maravilla - 01/22/2024 3:00 PM EDT DISCHARGE PLANNING NOTE Confirmed WC from PTN via [employer] for 5:00pm case picker from , transport to [place] [facility] They are subbing with BLS [facility]06[facility]10[facility] History of Present illness Narrative* Juliana Perales RN - 01/22/2024 2:22 PM EDT Initial Rehab Facility Preadmission Screening Sending facility: [facility] Room number: A724/[id number] Date of admission to hospital: 01/17/2024 PCP: Jd Du PA-C Primary insurance: Payor: MEDICARE / Plan: MEDICARE PART A & B / Product Type: *No Product type* / Policy #: [id number] - (Medicare) Secondary insurance: N/A Address: [address] [place] [phone] (home) : 1970 Age: 53 y.o. Race: White or [1] Emergency contact: Extended Emergency Contact Information Primary Emergency Contact: Yvonne Martinez [employer] Relation: Mother Preferred language: Ukrainian Electrical Design Engineer needed? No Marital status: Single [1] Rehab [...] Comorbidities/Medical issues requiring further interdisciplinary management at [facility]: Right Hip Fracture s/p IMN 01/17 -WBAT [...] Closed displaced intertrochanteric fracture of right femur ([facility]) Closed fracture of right hip, initial encounter [place] Past Medical History: Diagnosis Date Asthma Back pain Chronic cough from lisinopril Chronic pain disorder Colon cancer ([facility]) COPD (chronic obstructive pulmonary disease) ([facility]) Depression Diabetes mellitus type 2, controlled ([facility]) Fibromyalgia, primary Fracture of right hip, closed, initial encounter ([facility]) 01/17/2024 GERD (gastroesophageal reflux disease) Hyperlipidemia Hypertension Insulin-treated type 2 diabetes mellitus ([facility]) Joint pain Kidney stones Liver disease Low back pain Neck pain Obesity Osteoarthritis Visual impairment Past Surgical History: Procedure Laterality Date BACK SURGERY COLON SURGERY resection, 2018, [facility] DAVINCI REPAIR HERNIA VENTRAL N/A 10/27/2021 Performed by Ridge Cedillo MD at [facility] SURGERY pt had all teeth removed HERNIA REPAIR x's 2 INSERTION INTRAMEDULLARY NAIL FEMUR-TFNA HIP FX Right 01/18/2024 Performed by Ang Figueroa MD at [facility] 2007 foot, infected foot Ongoing Medical Management Needs: [...] SADA Stephen Hannah MD 1,000 mg at 01/22/24 1135 albuterol (PROVENTIL,VENTOLIN) nebulizer solution 2.5 mg 2.5 mg nebulization Q6H PRN Stephen Hannah MD calcium citrate (CALCITRATE) tablet 400 mg 400 mg oral TID with meals Vilma Beckwith PA-C 400 mg at 01/22/24 1134 carvediloL (COREG) tablet 6.25 mg 6.25 mg oral BID with meals Abad Diallo DO 6.25 mg at 01/22/24 0835 cholecalciferol [...] mg 800 mg oral 4x Daily Stephen S Brielle, MD 800 mg at 355 glucagon HCL [...] tablet 100 mg 100 mg oral Daily Yvrosed Imani, DO 100 mg at 01/22/24 0836 magnesium [...] 40 mg 40 mg oral Daily Abad Diallo, DO 40 mg at 01/22/24 0539 polyethylene [...] 550 mg 550 mg oral Q12H SADA Abad Diallo, DO 550 mg at 01/22/24 0836 sennosides-docusate [...] Frequency: Constant/continuous (01/22/24 1134) Pain Onset: Ongoing (01/22/241133) Clinical Progression: Gradually worsening (01/22/241133) Effect of Pain on Daily Activities: comfort (01/21/24 0514) Patient's Stated Pain Goal: No pain (01/21/242219) Pain Intervention(s): Medication (See MAR) (01/22/241133) Response to Interventions: Pain unchanged, Quiet (01/22/24 0922) Wound Assessment: Skin: Skin Color: Price, Pale (01/22/241131) Skin Temp: Cool, Dry (01/22/24 0400) Skin Integrity: Bruising (01/22/241131) risk: turn and position every 2 hours, lotion to bk prominences, moisture barrier, and pressure relief every 20 minutes while up in chair Dialysis? No Language/Cognition: Ukrainian [22] Hearing / Speech / Vision Hearing: [...] Precautions: Fall (01/22/24 1023) Cultural considerations: N/A Electrical Design Engineer needed? No [2] BP 134/90 Pulse 90 [...] Weight: 118.5 kg (261 lb 3.9 oz) (06/05/07 2328) Diet: Dietary Orders (From admission, onward) Start [...] glargine Tube Feed: Elimination: Bowel Incontinence: No (01/21/24 1600) Unmeasured Stool Occurrence: 2 (01/21/24 1600) Stool Amount: Large (01/21/24 1615) Last BM [...] Weakness, Pain (01/22/24830) 2 Turns: Yes (01/21/24 153) Other: pt completedf functional mobility to and [...] and was able to exchange L sock. Flight Operations Coordinator assisted with R foot. Pt then donned [...] chair) (01/19/24923) Other : No AE/DME needs COAGULATING BATH MIXER (01/19/24922) Lives with: Lives With: Alone (01/19/24923) Additional support system: Receives Help From: (pt states his neighbor could assist some) ([id number]) Therapy Plan: The patient requires the active [...] supplementation Ice/elevation Pain control DVT Proph: Lovenox LUIS Cole PA-C 01/22/24 1323 * Abad Diallo DO - 01/21/2024 10:01 AM EDT Images from the original note were not included. [facility] Hospitalists Progress Note 01/21/2024 Patient [...] medicine rehab consultation for possible inpatient rehab radiation control worker/live in caregiver for discharge planning On chemical DVT prophylaxis with SQ Lovenox-discussed with ortho Continue with vitamin-D supplementation, 01644 units weekly x4 weeks Continue sliding scale [...] DIALLO DO 01/21/24 10:01 AM [facility], [facility] Please note that portions of this note were generated using voice recognition M*Modal dictation software. Although every effort was made to ensure the accuracy of this automated welt stitch cleaner, some errors in welt stitch cleaner may have occurred. This should not affect the overall integrity of the document. * Anne Ventura MD - 01/21/2024 9:34 AM EDT Physical Medicine and Rehabilitation Daily Progress Note Today's Date and Time: 01/21/2024, 9:34 AM Subjective/Chief complaint: Closed fracture of right hip, initial encounter ([facility]) Principal Problem: Closed fracture of right hip, initial encounter ([facility]) Active Problems: Closed displaced intertrochanteric fracture of right femur ([facility]) SUBJECTIVE Resting in bed, denies chest pains [...] Closed displaced intertrochanteric fracture of right femur ([facility]) Closed fracture of right hip, initial encounter ([facility]) Recommendations/Plan: Continue PT, OT Min assist x2 with gait Max assist x2 with transfers Lovenox subQ for DVT prophylaxis Continue Neurontin for neuropathic pains Cozaar for hypertension Pain Management Family education Will benefit from inpatient rehab Will follow up with you for rehab needs Anne Ventura MD * Abad Diallo DO - 01/20/2024 11:05 AM EDT Images from the original note were not included. [facility] Note 01/20/2024 Patient Name: [...] Lovenox-discussed with ortho Continue with vitamin-D supplementation, 53449 units weekly x4 weeks Continue sliding scale [...] by: ABAD DIALLO DO 01/20/24 11:05 AM [facility] Please note that portions of this note were generated using voice recognition [employer] dictation software. Although every effort was made to ensure the accuracy of this automated welt stitch cleaner, some errors in welt stitch cleaner may have occurred. This should not affect the overall integrity of the document. * Vilma eBckwith PA-C - 01/20/2024 9:34 AM EDT Orthopedic [...] from the original note were not included. [facility] Progress Note 01/19/2024 Patient [...] Lovenox-discussed with ortho Continue with vitamin-D supplementation, 70933 units weekly x4 weeks Continue sliding scale insulin/Accuchecks Continue other home medications the diet following reconciliation Social work for discharge planning DVT prophylaxis: SQ Lovenox Code status: Full code Discharge planning: Status post surgery on 01/18/2024. Await PT/OT Electronically signed by: ABAD DIALLO DO 01/19/24 10:33 AM [facility] Please note that portions of this note were generated using voice recognition M*Modal dictation software. Although every effort was made to ensure the accuracy of this automated welt stitch cleaner, some errors in welt stitch cleaner may have occurred. This should not affect [...] 16 Ht 185.4 cm (6' 0.99 ) Wt115.7 kg (255 lb) SpO2 95% BMI 33.65 [...] LUIS BANUELOS PA-C 01/19/24 1028 * Mara Padilla [facility] - 01/18/2024 4:43 PM EDT [facility] Department of Pharmacy Pharmacist to Physician Communication The dose of cefazolin for surgical prophylaxis has been changed to 2 grams every 8 hours for 2 doses per the [place] approved renal dosing guidelines, based on an estimated creatinine clearance is 134.8 mL/min (by C-G formula based on SCr of 0.7 mg/dL). Actual body weight <120kg. Thank you, Mara Padilla [facility], PharmD Ext [phone] * Abad Diallo DO - 01/18/2024 10:50 AM EDT Images from the original note were not included. [facility] Progress Note 01/18/2024 Patient [...] once okay with ortho Start vitamin-D supplementation, 13602 units weekly x4 weeks Continue sliding scale insulin/Accuchecks Continue other home medications the diet following reconciliation DVT prophylaxis: SCDs. Start chemical DVT PPX once okay with ortho Code status: Full code Discharge planning: Pending clinical course. Surgery planned for today. Will need PT/OT evaluation thereafter Electronically signed by: ABAD DIALLO DO 01/18/24 10:50 AM [facility] Please note that portions of this note were generated using voice recognition [employer] dictation software. Although every effort was made to ensure the accuracy of this automated welt stitch cleaner, some errors in welt stitch cleaner may have occurred. This should not affect the overall integrity of the document. documented in this encounterR[facility] Institute06-10-2024 Progress note* Discharge Planning Note - Mendoza Pritchett - 01/22/2024 2:06 PM EDT DISCHARGE PLANNING NOTE Referral sent to [facility], a division of [facility] P# [phone] [calling report];/[facility] (P# [calling report]; F# ) [facility]06-10[facility] Progress note* Discharge Planning Note - JEWEL Crenshaw - 01/22/2024 2:01 PM EDT DISCHARGE PLANNING NOTE GABRIEL informed that [facility] IP rehab does not currently have a bed available. GABRIEL discussed with pt and reviewed other IPR options. Pt is agreeable to [facility] rehab. Referral sent, await acceptance. - JEWEL Crenshaw 01/22/24 2:01 PM [facility]06-10[facility] Plan of care note* Plan of Care - Miranda Dudley RN - 01/22/2024 12:56 PM EDT Problem: Pain Goal: Patient goal is pain score less than 4, able to rest, and participant in treatment plan as appropriate Description: INTERVENTIONS: 1. Encourage patient or legal field representative to report early pain and ask [...] per policy 9. Teach patient or legal field representative interventions for comforting Outcome: Adequate for [...] at the bedside 7. Instruct patient/ patient field representative about use of safety devices 8. Include patient/ patient field representative in decisions related to safety Outcome: [...] hygiene technique 7. Identify and instruct patient/patient field representative in use of appropriate isolation precautionsfor identified infection/symptoms 8. Provide and discuss with patient/patient field representative on educational MDRO sheet 9. Encourage and monitor nutritional status daily and consult heat treater if indicated 10. Implement neutropenic guidelines as [...] any changes. Problem: Knowledge Deficit Goal: Patient/patient field representative demonstrates understanding of disease process, treatment [...] Score of =/> 25 or indicated by [facility] Assessment Goal: Patient should be free from fall Description: Interventions: 1. [place] to environment 2. Hourly rounds addressing the [...] non-skid footwear 11. Teach patient and patient field representative to maintain environment for safety and [...] (cane, walker) within reach 19. Request patient field representative bring adaptive equipment/mobility aids from home or obtain and provide as needed 20. Consult pharmacy regarding effects of med's affecting mobility, cognition, and alternatives 21. Obtain physician order for PT if risk factors associated with mobility are present 22. Obtain physician order for OT as appropriate 23. Utilize diversional activities 24. Educate patient and patient field representative how to maintain a safe environment during visitationtimes (notify nurse prior to leaving bedside) 25. Consider appropriateness of medical or non-medical reception specialist 26. Set up voiding schedule as appropriate [...] Will continue to monitor during shift. ;; [facility] Progress note* Discharge Planning Note - JEWEL Crenshaw - 01/22/2024 11:17 AM EDT DISCHARGE PLANNING NOTE DC plan now will be IP rehab, SW notified that pt is now requesting to go to IP rehab, pt does not feel like he is ready to go home yet. GABRIEL discussed IP rehab with pt and pt is now agreeable. GABRIEL reviewed IPR options with pt and pt would like to try [facility] rehab. Referral sent. Awaiting acceptance. W/C tx cert in dc packet. - JEWEL Crenshaw 01/22/24 11:19 AM [facility] Progress note* Discharge Planning Note - Jackie Caal - 01/22/2024 11:13 AM EDT DISCHARGE PLANNING NOTE Referral to [facility] in [place] (P# ; F# ) [facility]06-10-[facility] Progress note* PT/OT/BAR WAITER/WAITRESS - Ludy Ireland, OTR/Lanie - 01/22/2024 8:31 AM EDT Occupational Therapy [...] belt, RW Weight Bearing Status: WBAT RLE Telemetry/Process Tech: No Oxygen Used: room air Other: fall [...] and was able to exchange L sock. Flight Operations Coordinator assisted with R foot. Pt then donned [...] and was able to exchange L sock. Flight Operations Coordinator assisted with R foot. Pt then donned [...] Patient will perform bed mobility with Modified [place] Dates: Start: 01/19/24 Expected End: 02/09/24 Description: Goal Description: Disciplines: OT Outcomes Date/Time User Outcome 01/22/24 1054 Ludy Ireland OTR/L Progressing 01/21/24 1053 Ludy Vogt SERVIN/L Progressing 01/20/24 1610 Katlin Goins, SERVIN/L Progressing 01/20/24 0945 Katlinyaneth Goins, SERVIN/L Progressing 01/19/24 1531 Nano Maher, SERVIN/L Progressing Goal Note filed on 01/22/24 1054 by Ludy Ireland OTR/L Evaluation of progress towards goal: Problem: Functional Mobility Dates: Start: 01/19/24 Disciplines: OT Goal: Patient will perform functional mobility with Modified [place] Dates: Start: 01/19/24 Expected End: 02/09/24 Description: Goal Description: Disciplines: OT Outcomes Date/Time User Outcome 01/22/24 1054 Ludy Ireland, OTR/L Progressing 01/21/24 1650 Ludy Vogt, SERVIN/L Progressing 01/21/24 1053 Ludy Vogt SERVIN/L Progressing [...] Ludy Ireland OTR/L Progressing 01/21/24 1650 Ludy Vogt SERVIN/L Progressing [...] OTR/Lanie Evaluation of progress towards goal: Problem: Transfers Dates: Start: 01/19/24 Disciplines: OT Goal: Patient will perform transfers with Modified [place] Dates: Start: 01/19/24 Expected End: 02/09/24 Description: Goal Description: Disciplines: OT Outcomes Date/Time User Outcome 01/22/24 1054 Ludy Ireland OTR/L Progressing 01/21/24 1650 Ludy oVgt, SERVIN/L Progressing 01/21/24 1053 Ludy Vogt SERVIN/L Not Progressing 01/20/24 1610 Katlin Goins SERVIN/L Progressing 01/20/24 0945 NALLELY Meneses Progressing 01/19/24 1531 NALLELY Hernandez Progressing Goal Note filed on 01/22/24 1054 by ALICIA Banda Evaluation of progress towards goal: Occupational Therapy Care Plan (Resolved) There are no resolved problems. Principal Problem: Closed fracture of right hip, initial encounter ([facility] Active Problems: Closed displaced intertrochanteric fracture of right femur ([facility]) [employer] [id number] Progress note* PT/OT/BAR WAITER/WAITRESS - Shahrzad Garcias, COAGULATING BATH MIXER - 01/22/2024 8:30 AM EDT Physical Therapy [...] 6 Clicks: Basic Mobility Raw Score: 14 [facility] G Code Modifier: CK Therapy Plan PT [...] RW Weight Bearing Status: WBAT R LE Telemetry/Process Tech: No Oxygen Used: room air Other: fall [...] complete. Pt used gait belt as leg textile screen maker to assist RLE OOB. Pt tends to hold his breath with transitions and displays difficulty foloring direction for breathing technique from instructional writer. Pt reporting dizziness intially upon sitting [...] Garcias PTA Progressing 01/21/24 1741 Shahrzad Garcias, COAGULATING BATH MIXER Progressing 01/21/24 1309 Shahrzad Garcias, COAGULATING BATH MIXER Progressing 01/20/24 1607 Shahrzad Garcias, COAGULATING BATH MIXER Progressing 01/20/24 1036 Sahhrzad Garcias, COAGULATING BATH MIXER Progressing 01/19/24 1721 Shahrzad Garcias, COAGULATING BATH MIXER Progressing Goal Note filed on 01/22/24 1051 by Shahrzad Garcias PTA Evaluation of progress towards goal: Problem: Gait Dates: Start: 01/19/24 Disciplines: PT Goal: Patient will perform gait with Contact Guard Dates: Start: 01/19/24 Expected End: 02/02/24 Description: With_rw___,__150__feet Goal Description: Disciplines: PT Outcomes Date/Time User Outcome 01/22/24 1051 Shahrzad Garcias, COAGULATING BATH MIXER Progressing 01/21/24 1741 Shahrzad Garcias, COAGULATING BATH MIXER Progressing 01/21/24 1309 Shahrzad Garcias, COAGULATING BATH MIXER Progressing 01/20/24 1607 Shahrzad Garcias, COAGULATING BATH MIXER Progressing 01/20/24 1036 Shahrzad Garcias, COAGULATING BATH MIXER Progressing 01/19/24 1721 Shahrzad Garcias, SHERYL Progressing Goal Note filed on 01/22/24 1051 by Shahrzad Garcias PTA Evaluation of progress towards goal: Problem: Standing Balance Dates: Start: 01/19/24 Disciplines: PT Goal: Improve balance to good Dates: Start: 01/19/24 Expected End: 02/02/24 Description: Static Dynamic- good (-) with support of rw Disciplines: PT Outcomes Date/Time User Outcome 01/22/24 1051 Shahrzad Garcias, COAGULATING BATH MIXER Progressing 01/21/24 1741 Shahrzad Garcias, COAGULATING BATH MIXER Progressing 01/21/24 1309 Shahrzad Garcias, COAGULATING BATH MIXER Not Progressing 01/20/24 1036 Shahrzad Garcias, COAGULATING BATH MIXER Progressing 01/19/24 1721 Shahrzad Garcias, SHERYL Progressing Goal Note filed on 01/22/24 1051 by Shahrzad Garcias PTA Evaluation of progress towards goal: Problem: Strength Dates: Start: 01/19/24 Disciplines: PT Goal: Improve strength Dates: Start: 01/19/24 Expected End: 02/02/24 Description: Of extremity/ location:Complete 20 reps bilat UE/LE ex's To facilitate: Disciplines: PT Outcomes Date/Time User Outcome 01/22/24 1051 Shahrzad Garcias, COAGULATING BATH MIXER Progressing 01/21/24 1741 Shahrzad Garcias, COAGULATING BATH MIXER Progressing 01/21/24 1309 Shahrzad Garcias, COAGULATING BATH MIXER Progressing 01/20/24 1607 Shahrzad Garcias, COAGULATING BATH MIXER Progressing 01/20/24 1036 Shahrzad Garcias, COAGULATING BATH MIXER Progressing 01/19/24 1721 Shahrzad Garcias, COAGULATING BATH MIXER Progressing Goal Note filed on 01/22/24 1051 by Shahrzad Garcias PTA Evaluation of progress towards goal: Problem: Transfers Dates: Start: 01/19/24 Disciplines: PT Goal: Patient will perform transfers with Contact Guard Dates: Start: 01/19/24 Expected End: 02/02/24 Description: Goal Description: Disciplines: PT Outcomes Date/Time User Outcome 01/22/24 1051 Shahrzad Garcias, COAGULATING BATH MIXER Progressing 01/21/24 1741 Shahrzad Garcias, COAGULATING BATH MIXER Progressing 01/21/24 1309 Shahrzad Garcias, COAGULATING BATH MIXER Not Progressing 01/20/24 1607 Shahrzad Garcias, COAGULATING BATH MIXER Progressing 01/20/24 1036 Shahrzad Garcias, COAGULATING BATH MIXER Progressing 01/19/24 1721 Shahrzad Garcias, SHERYL Progressing Goal Note filed on 01/22/24 1051 by Shahrzad Garcias PTA Evaluation of progress towards goal: Physical Therapy Care Plan (Resolved) There are no resolved problems. Principal Problem: Closed fracture of right hip, initial encounter ([facility]) Active Problems: Closed displaced intertrochanteric fracture of right femur ([facility]) Associated attestation - Brady Jauregui PT - 01/22/2024 4:19 PM EDT I have reviewed and agree with this note and education documentation for this visit. [facility]06-09-2024 Plan of care note* Plan of Care - Santi Parks RN - 01/21/2024 9:31 PM EDT Problem: Pain Goal: Patient goal is pain score less than 4, able to rest, and participant in treatment plan as appropriate Description: INTERVENTIONS: 1. Encourage patient or legal field representative to report early pain and ask [...] per policy 9. Teach patient or legal field representative interventions for comforting Outcome: Progressing Note: [...] at the bedside 7. Instruct patient/ patient field representative about use of safety devices 8. Include patient/ patient field representative in decisions related to safety Outcome: [...] hygiene technique 7. Identify and instruct patient/patient field representative in use of appropriate isolation precautionsfor identified infection/symptoms 8. Provide and discuss with patient/patient field representative on educational MDRO sheet 9. Encourage and monitor nutritional status daily and consult heat treater if indicated 10. Implement neutropenic guidelines as needed 11. Review exposure to history of communicable disease and recent travel history on admission 12. Encourage annual influenza vaccine 13. Encourage pneumonia vaccine Outcome: Progressing Note: Evaluation of progress towards goal: Pt afebrile at this time, continue to monitor for signs infection Problem: Knowledge Deficit Goal: Patient/patient field representative demonstrates understanding of disease process, treatment plan,medications, and discharge instructions Description: INTERVENTIONS 1. Complete learning assessment and assess knowledge base 2. Provide teaching at level of understanding 3. Provide teaching via preferred learning method(s) Outcome: Progressing Note: Evaluation of progress towards goal: POC discussed with patient. Questions answered PRN. [facility]06-09-2024 Progress note* PT/OT/BAR WAITER/WAITRESS - NALLELY Grey - 01/21/2024 5:01 PM [...] RW Weight Bearing Status: WBAT Rt LE Telemetry/Process Tech: No Oxygen Used: room air Other: fall [...] Patient will perform bed mobility with Modified [place] Dates: Start: 01/19/24 Expected End: 02/09/24 Description: Goal Description: Disciplines: OT Outcomes Date/Time User Outcome 01/21/24 1053 Ludy Vogt, SERVIN/L Progressing 01/20/24 1610 Katlin Goins, SERVIN/L Progressing 01/20/24 0945 Katlin Buster, SERVIN/L Progressing 01/19/24 1531 Nano Maher, SERVIN/L Progressing Problem: Functional Mobility Dates: Start: 01/19/24 Disciplines: OT Goal: Patient will perform functional mobility with Modified [place] Dates: Start: 01/19/24 Expected End: 02/09/24 Description: Goal Description: Disciplines: OT Outcomes Date/Time User Outcome 01/21/24 1650 Ludy Vogt, SERVIN/L Progressing 01/21/24 1053 Ludymadison Vogt, SERVIN/L Progressing 01/20/24 1610 Katlin Goins, ESRVIN/L Progressing 01/20/24 0945 Katlin Goins, SERVIN/L Progressing [...] 01/19/24 1531 Nano Maher, SERVIN/L Progressing Problem: Strength Dates: Start: 01/19/24 [...] Goal: Patient will perform transfers with Modified [place] Dates: Start: 01/19/24 Expected End: 02/09/24 Description: [...] Closed fracture of right hip, initial encounter ([facility]) Active Problems: Closed displaced intertrochanteric fracture of right femur ([facility] Associated attestation - Ludy Ireland OTR/L - 01/22/2024 7:38 AM EDT I have reviewed and agree with this note and education documentation for this visit. [facility]06-09-2024 Plan of care note* Plan of Care - Chloe Vela RN - 01/21/2024 4:13 PM EDT Problem: Pain Goal: Patient goal is pain score less than 4, able to rest, and participant in treatment plan as appropriate Description: INTERVENTIONS: 1. Encourage patient or legal field representative to report early pain and ask [...] per policy 9. Teach patient or legal field representative interventions for comforting Outcome: Progressing Note: [...] at the bedside 7. Instruct patient/ patient field representative about use of safety devices 8. Include patient/ patient field representative in decisions related to safety Outcome: [...] hygiene technique 7. Identify and instruct patient/patient field representative in use of appropriate isolation precautionsfor identified infection/symptoms 8. Provide and discuss with patient/patient field representative on educational MDRO sheet 9. Encourage and monitor nutritional status daily and consult heat treater if indicated 10. Implement neutropenic guidelines as needed 11. Review exposure to history of communicable disease and recent travel history on admission 12. Encourage annual influenza vaccine 13. Encourage pneumonia vaccine Outcome: Progressing Problem: Knowledge Deficit Goal: Patient/patient field representative demonstrates understanding of disease process, treatment [...] discharge planning process 5. Communicate referral to personal development educator as appropriate 6. Communicate referral to heat treater as appropriate 7. Collaborate with case management/social media coordinator for discharge needs Outcome: Progressing Problem: Moderate - High Risk Fall Score Description: Arredondo Fall Score of =/> 25 or indicated by [facility] Assessment Goal: Patient should be free from fall Description: Interventions: 1. [place] to environment 2. Hourly rounds addressing the [...] non-skid footwear 11. Teach patient and patient field representative to maintain environment for safety and [...] (cane, walker) within reach 19. Request patient field representative bring adaptive equipment/mobility aids from home or obtain and provide as needed 20. Consult pharmacy regarding effects of med's affecting mobility, cognition, and alternatives 21. Obtain physician order for PT if risk factors associated with mobility are present 22. Obtain physician order for OT as appropriate 23. Utilize diversional activities 24. Educate patient and patient field representative how to maintain a safe environment during visitationtimes (notify nurse prior to leaving bedside) 25. Consider appropriateness of medical or non-medical reception specialist 26. Set up voiding schedule as appropriate (every 2 hours) Outcome: Progressing Note: Evaluation of progress towards goal: Fall precautions in place including bed locked and in lowest position, call light within reach and non skid socks on. Patient calls out appropriately for help. Hourly rounding in place. [email or web address] Kate [id number] Progress note* PT/OT/BAR WAITER/WAITRESS - Shahrzad Garcias PTA - 01/21/2024 3:32 PM EDT Physical Therapy [...] RW Weight Bearing Status: WBAT Rt LE Telemetry/Process Tech: No Oxygen Used: room air Other: fall [...] Date/Time User Outcome 01/21/24 1741 Shahrzad Garcias, COAGULATING BATH MIXER Progressing 01/21/24 1309 Shahrzad Garcias, COAGULATING BATH MIXER Progressing 01/20/24 1607 Shahrzad Garcias, COAGULATING BATH MIXER Progressing 01/20/24 1036 Shahrzad Garcias, COAGULATING BATH MIXER Progressing 01/19/24 1721 Shahrzad Garcias, COAGULATING BATH MIXER Progressing Goal Note filed on 01/21/24 174 by Shahrzad Garcias PTA Evaluation of progress towards goal: Problem: Gait Dates: Start: 01/19/24 Disciplines: PT Goal: Patient will perform gait with Contact Guard Dates: Start: 01/19/24 Expected End: 02/02/24 Description: With_rw___,__150__feet Goal Description: Disciplines: PT Outcomes Date/Time User Outcome 01/21/24 174 Shahrzad Garcias, COAGULATING BATH MIXER Progressing 01/21/24 1309 Shahrzad Garcias, COAGULATING BATH MIXER Progressing 01/20/24 1607 Shahrzad Garcias, COAGULATING BATH MIXER Progressing 01/20/24 1036 Shahrzad Garcias, COAGULATING BATH MIXER Progressing 01/19/24 1721 Shahrzad Garcias PTA Progressing [...] Garcias PTA Progressing 01/21/24 1309 Shahrzad Garcias, SHERYL Not Progressing 01/20/24 1036 Shahrzad Garcias, COAGULATING BATH MIXER Progressing 01/19/24 1721 Shahrzad Garcias PTA Progressing Goal Note filed on 01/21/24 174 by Shahrzad Gacrias PTA Evaluation of progress towards goal: Problem: Strength Dates: Start: 01/19/24 Disciplines: PT Goal: Improve strength Dates: Start: 01/19/24 Expected End: 02/02/24 Description: Of extremity/ location:Complete 20 reps bilat UE/LE ex's To facilitate: Disciplines: PT Outcomes Date/Time User Outcome 01/21/24 1741 Shahrzad Garcias, SHERYL Progressing 01/21/24 1309 Shahrzad Garcias, COAGULATING BATH MIXER Progressing 01/20/24 1607 Shahrzad Garcias, COAGULATING BATH MIXER Progressing 01/20/24 1036 Shahrzad Garcias, COAGULATING BATH MIXER Progressing 01/19/24 1721 Shahrzad Garcias PTA Progressing Goal Note filed on 01/21/24 174 by Shahrzad Garcias PTA Evaluation of progress towards goal: Problem: Transfers Dates: Start: 01/19/24 Disciplines: PT Goal: Patient will perform transfers with Contact Guard Dates: Start: 01/19/24 Expected End: 02/02/24 Description: Goal Description: Disciplines: PT Outcomes Date/Time User Outcome 01/21/24 1741 Shahrzad Garcias, COAGULATING BATH MIXER Progressing 01/21/24 1309 Shahrzad Garcias, COAGULATING BATH MIXER Not Progressing 01/20/24 1607 Shahrzad Garcias, COAGULATING BATH MIXER Progressing 01/20/24 1036 Shahrzad Garcias, COAGULATING BATH MIXER Progressing 01/19/24 1721 Shahrzad Garcias PTA Progressing Goal Note filed on 01/21/24 174 by Shahrzad Garcias PTA Evaluation of progress towards goal: Physical Therapy Care Plan (Resolved) There are no resolved problems. Principal Problem: Closed fracture of right hip, initial encounter ([facility]) Active Problems: Closed displaced intertrochanteric fracture of right femur ([facility] Associated attestation - Brady Jauregui PT - 01/22/2024 4:19 PM EDT I have reviewed and agree with this note and education documentation for this visit. [facility]06-09-2024 Progress note* PT/OT/BAR WAITER/WAITRESS - NALLELY Grey - 01/21/2024 11:13 AM [...] 16 CMS G Code Modifier: CK 01/21/24 1043 UE [...] pole Weight Bearing Status: WBAT Rt LE Telemetry/Process Tech: No Oxygen Used: room air Other: fall [...] pt utilizing looped gait belt as leg textile screen maker for RLE to advance toward EOB. Pt [...] Patient will perform bed mobility with Modified [place] Dates: Start: 01/19/24 Expected End: 02/09/24 Description: Goal Description: Disciplines: OT Outcomes Date/Time User Outcome 01/21/24 1053 Ludy Vogt SERVIN/L Progressing 01/20/24 1610 Katlin Goins SERVIN/L Progressing 01/20/24 0945 Katlin Goins, SERVIN/L Progressing 01/19/24 1531 Nano Maher SERVIN/L Progressing Problem: Functional Mobility Dates: Start: 01/19/24 Disciplines: OT Goal: Patient will perform functional mobility with Modified [place] Dates: Start: 01/19/24 Expected End: 02/09/24 Description: [...] Ludy Vogt SERVIN/L Not Progressing 01/20/24 0945 Katlinyaneth Goins, SERVIN/L Progressing Problem: Sitting Balance Dates: [...] Ludy Vogt SERVIN/L Progressing 01/19/24 1531 Nano Gunnar, SERVIN/L Progressing Problem: Transfers Dates: Start: 01/19/24 Disciplines: OT Goal: Patient will perform transfers with Modified [place] Dates: Start: 01/19/24 Expected End: 02/09/24 Description: Goal Description: Disciplines: OT Outcomes Date/Time User Outcome 01/21/24 1053 Ludy Sin SERVIN/L Not Progressing 01/20/24 1610 CHARU MenesesA/L Progressing 01/20/24 0945 Katlin Goins SERVIN/L Progressing 01/19/24 1531 Nano Maher SERVIN/L Progressing Occupational Therapy Care Plan (Resolved) There are no resolved problems. Principal Problem: Closed fracture of right hip, initial encounter ([facility]) Active Problems: Closed displaced intertrochanteric fracture of right femur ([facility] Associated attestation - Virgil Nunes OTR/L - 01/21/2024 12:48 PM EDT I have reviewed and agree with this note and education documentation for this visit. [facility]06-09-2024 Progress note* PT/OT/BAR WAITER/WAITRESS - Shahrzad Garcias PTA - 01/21/2024 9:49 [...] pole Weight Bearing Status: WBAT Rt LE Telemetry/Process Tech: No Oxygen Used: room air Other: fall [...] railing required to complete. Use of limb textile screen maker for RLE support OOB. Increased time and [...] Date/Time User Outcome 01/21/24 1309 Shahrzad Garcias, COAGULATING BATH MIXER Progressing 01/20/24 1607 Shahrzad Garcias, COAGULATING BATH MIXER Progressing 01/20/24 1036 Shahrzad Garcias, COAGULATING BATH MIXER Progressing 01/19/24 1721 Shahrzad Garcias, COAGULATING BATH MIXER Progressing Goal Note filed on 01/21/24 1309 by Shahrzad Garcias PTA Evaluation of progress towards goal: Problem: Bed Mobility Dates: Start: 01/19/24 Disciplines: PT Goal: Patient will perform bed mobility with Minimum Assist Dates: Start: 01/19/24 Expected End: 02/02/24 Description: Goal Description: Disciplines: PT Outcomes Date/Time User Outcome 01/21/24 1309 Shahrzad Garcias, COAGULATING BATH MIXER Progressing 01/20/24 1607 Shahrzad Garcias, COAGULATING BATH MIXER Progressing 01/20/24 1036 Shahrzad Garcias, COAGULATING BATH MIXER Progressing 01/19/24 1721 Shahrzad Garcias, COAGULATING BATH MIXER Progressing Goal Note filed on 01/21/24 1309 by Shahrzad Garcias PTA Evaluation of progress towards goal: Problem: Gait Dates: Start: 01/19/24 Disciplines: PT Goal: Patient will perform gait with Contact Guard Dates: Start: 01/19/24 Expected End: 02/02/24 Description: With_rw___,__150__feet Goal Description: Disciplines: PT Outcomes Date/Time User Outcome 01/21/24 1309 Shahrzad Garcias, COAGULATING BATH MIXER Progressing 01/20/24 1607 Shahrzad Garcias, COAGULATING BATH MIXER Progressing 01/20/24 1036 Shahrzad Garcias, COAGULATING BATH MIXER Progressing 01/19/24 1721 Shahrzad Garcias COAGULATING BATH MIXER Progressing Goal Note filed on 01/21/24 1309 by Shahrzad Garcias PTA Evaluation of progress towards goal: Problem: Standing Balance Dates: Start: 01/19/24 Disciplines: PT Goal: Improve balance to good Dates: Start: 01/19/24 Expected End: 02/02/24 Description: Static Dynamic- good (-) with support of rw Disciplines: PT Outcomes Date/Time User Outcome 01/21/24 1309 Shahrzad Garcias PTA Not Progressing 01/20/24 1036 Shahrzad Garcias, COAGULATING BATH MIXER Progressing 01/19/24 1721 Shahrzad Garcias PTA Progressing Goal Note filed on 01/21/24 1309 by Shahrzad Garcias PTA Evaluation of progress towards goal: Problem: Strength Dates: Start: 01/19/24 Disciplines: PT Goal: Improve strength Dates: Start: 01/19/24 Expected End: 02/02/24 Description: Of extremity/ location:Complete 20 reps bilat UE/LE ex's To facilitate: Disciplines: PT Outcomes Date/Time User Outcome 01/21/24 1309 Shahrzad Garcias, SHERYL Progressing 01/20/24 [...] Closed fracture of right hip, initial encounter ([facility]) Active Problems: Closed displaced intertrochanteric fracture of right femur ([facility]) Associated attestation - Carlos Brar PT - 01/21/2024 3:57 PM EDT I have reviewed and agree with this note and education documentation for this visit. [facility]06-09-2024 Plan of care note* Plan of Care - Virgil Gonzalez RN - 01/21/2024 2:05 AM EDT Problem: Pain Goal: Patient goal is pain score less than 4, able to rest, and participant in treatment plan as appropriate Description: INTERVENTIONS: 1. Encourage patient or legal field representative to report early pain and ask [...] per policy 9. Teach patient or legal field representative interventions for comforting Outcome: Not Progressing [...] impact it will have on his body. [email or web address] Kate [id number] Progress note* PT/OT/BAR WAITER/WAITRESS - NALLELY Meneses - 01/20/2024 4:21 PM [...] environment. Pt utilized gait belt as leg textile screen maker with cues for tech to A RLE [...] (-) Other: Pt completed standing marches with COAGULATING BATH MIXER with heavy BUE support on RW. Pt [...] 0945 Katlin Goins SERVIN/L Progressing 01/19/24 1531 MALATHI Hernandez/Lanie Progressing Problem: Bed Mobility Dates: Start: 01/19/24 Disciplines: OT Goal: Patient will perform bed mobility with Modified [place] Dates: Start: 01/19/24 Expected End: 02/09/24 Description: Goal Description: Disciplines: OT Outcomes Date/Time User Outcome 01/20/24 1610 Katlin Goins SERVIN/L Progressing 01/20/24 0945 Katlin Goins SERVIN/L Progressing 01/19/24 1531 MALATHI Hernanedz/Lanie Progressing Problem: Functional Mobility Dates: Start: 01/19/24 Disciplines: OT Goal: Patient will perform functional mobility with Modified [place] Dates: Start: 01/19/24 Expected End: 02/09/24 Description: [...] Goal: Patient will perform transfers with Modified [place] Dates: Start: 01/19/24 Expected End: 02/09/24 Description: Goal Description: Disciplines: OT Outcomes Date/Time User Outcome 01/20/24 1610 Katlin Goins SERVIN/L Progressing 01/20/24 0945 MALATHI Meneses/Lanie Progressing 01/19/24 1531 MALATHI Hernandez/Lanie Progressing Occupational Therapy Care Plan (Resolved) There are no resolved problems. Principal Problem: Closed fracture of right hip, initial encounter ([facility]) Active Problems: Closed displaced intertrochanteric fracture of right femur ([facility] Associated attestation - Virgil Nunes OTR/Lanie - 01/21/2024 12:48 PM EDT I have reviewed and agree with this note and education documentation for this visit. [employer] [id number] Progress note* PT/OT/BAR WAITER/WAITRESS - Shahrzad Garcias PTA - 01/20/2024 3:15 [...] 6 Clicks: Basic Mobility Raw Score: 11 [facility] G Code Modifier: CL Therapy Plan PT [...] bed railing. Education provided on useof limb textile screen maker to assist RLE OOB. Pt able to [...] Goal Note filed on 01/20/24 1607 by Sharhzad Garcias PTA Evaluation of progress towards goal: Problem: Bed Mobility Dates: Start: 01/19/24 Disciplines: PT Goal: Patient will perform bed mobility with Minimum Assist Dates: Start: 01/19/24 Expected End: 02/02/24 Description: Goal Description: Disciplines: PT Outcomes Date/Time User Outcome 01/20/24 160 Shahrzad Garcias PTA Progressing 01/20/24 1036 Shahrzad [...] 01/20/24 1607 Shahrzad Garcias PTA Progressing 01/20/24 103 Shahrzad Garcias PTA Progressing 01/19/24 [...] Disciplines: PT Outcomes Date/Time User Outcome 01/20/24 160 Shahrzad Garcias PTA Progressing 01/20/24 103 Shahrzad Garcias PTA Progressing 01/19/24 [...] Closed fracture of right hip, initial encounter ([facility] Active Problems: Closed displaced intertrochanteric fracture of right femur ([facility] Associated attestation - Carlos Brar PT - 01/21/2024 3:57 PM EDT I have reviewed and agree with this note and education documentation for this visit. [facility]06-08-2024 Consult note* Anne Ventura MD - 01/20/2024 [...] from lisinopril Chronic pain disorder Colon cancer ([facility]) COPD (chronic obstructive pulmonary disease) ([facility]) Depression Diabetes mellitus type 2, controlled ([facility]) Fibromyalgia, primary Fracture of right hip, closed, initial encounter ([facility]) 01/17/2024 GERD (gastroesophageal reflux disease) Hyperlipidemia Hypertension Insulin-treated type 2 diabetes mellitus ([facility]) Joint pain Kidney stones Liver disease Low back pain Neck pain Obesity Osteoarthritis Visual impairment PSH: Past Surgical History: Procedure Laterality Date BACK SURGERY COLON SURGERY resection, 2018, [facility] DAVINCI REPAIR HERNIA VENTRAL N/A 10/27/2021 Performed by Ridge Cedillo MD at [facility] DENTAL SURGERY pt had all teeth removed HERNIA REPAIR x's 2 INSERTION INTRAMEDULLARY NAIL FEMUR-TFNA HIP FX Right 01/18/2024 Performed by Ang Figueroa MD at [facility] [place]OP[facility]IC SURGERY 2007 foot, infected foot Allergies [...] Daily, Vilma Beckwith PA-C, 2,000 Units at 01/20/24903 citalopram (CeleXA) tablet 20 mg, 20 mg, [...] PRN, Vilma Beckwith PA-C, 1 mg at 01/20/24812 ibuprofen (MOTRIN) tablet 800 mg, 800 mg, oral, Q6H PRN, Stephen Hannah MD, 800 mg at 01/17/242013 insulin lispro (HumaLOG) injection 1-4 Units, 1-4 Units, subcutaneous, Nightly, Vilma Beckwith PA-C, 1 Units at 01/19/242135 insulin lispro (HumaLOG) injection 1-5 Units, 1-5 Units, subcutaneous, TID with meals, Vilma Beckiwth PA-C, 2 Units at 01/19/241811 lidocaine (LIDODERM) 5 % 1 patch, 1 patch, transdermal, Daily, Stephen Hannah MD, 1 patch at 01/19/242131 losartan (COZAAR) tablet 100 mg, 100 mg, oral, Daily, Abad Daillo DO, 100 mg at 01/20/24 0905 magnesium [...] you for the consultation Anne Ventura MD [facility]06-08-2024 Consult note* Anne Ventura MD - 01/20/2024 [...] from lisinopril Chronic pain disorder Colon cancer ([facility]) COPD (chronic obstructive pulmonary disease) ([facility]) Depression Diabetes mellitus type 2, controlled ([facility]) Fibromyalgia, primary Fracture of right hip, closed, initial encounter ([facility]) 01/17/2024 GERD (gastroesophageal reflux disease) Hyperlipidemia Hypertension Insulin-treated type 2 diabetes mellitus ([facility]) Joint pain Kidney stones Liver disease Low back pain Neck pain Obesity Osteoarthritis Visual impairment PSH: Past Surgical History: Procedure Laterality Date BACK SURGERY COLON SURGERY resection, 2018, [facility] DAVINCI REPAIR HERNIA VENTRAL N/A 10/27/2021 Performed by Ridge Cedillo MD at [facility] DENT[facility] SURGERY pt had all teeth removed HERNIA REPAIR x's 2 INSERTION INTRAMEDULLARY NAIL FEMUR-TFNA HIP FX Right 01/18/2024 Performed by Ang Figueroa MD at [facility] [place] [facility] 2007 foot, infected foot Allergies [...] with meals, Vilma Beckwith PA-C, 400mg at 01/20/24903 carvediloL (COREG) tablet 6.25 mg, 6.25 mg, oral, BID with meals, Abad Diallo DO, 6.25 mg at 01/20/24903 cholecalciferol (vitamin D3) tablet 2,000 Units, 2,000 Units, oral, Daily, Vilma Beckwith PA-C, 2,000 Units at 01/20/24903 citalopram (CeleXA) tablet 20 mg, 20 mg, oral, Daily, Stephen Hannah MD, 20 mg at 01/20/24903 cyclobenzaprine (FLEXERIL) tablet 10 mg, 10 mg, oral, BID PRN, Stephen Hannah MD, 10 mg at 01/18/24 2356 dextrose (GLUTOSE) 40 % gel 15 g, [...] capsule 50,000 Units, 50,000 Units, oral, Weekly, Vlima Beckwith PA-C, 50,000 Units at 01/18/24 1630 [...] Daily, Stephen Hannah MD, 1 patch at 01/19/24 2132 losartan (COZAAR) tablet 100 mg, 100 mg, [...] 550 mg, 550 mg, oral, Q12H SADA, Yvroseveronica Diallo, DO, 550 mg at 01/20/24 0907 [...] for the consultation Anne Ventura MD * AARTI Roach - 01/18/2024 2:17 PM EDTAssociated Order(s): IP CONSULT TO NUTRITION SERVICES NUTRITION ADULT INITIAL EVALUATION NUTRITION ASSESSMENT: Reason to be seen: Consult for assessment Patient History: Admit Diagnosis: Patient Active Problem List Diagnosis Facial infection Abdominal pain Closed displaced intertrochanteric fracture of right femur ([facility]) Closed fracture of right hip, initial encounter ([facility] Past Medical History: Past Medical History: Diagnosis Date Asthma Back pain Chronic cough from lisinopril Chronic pain disorder Colon cancer ([facility]) COPD (chronic obstructive pulmonary disease) ([facility]) Depression Diabetes mellitus type 2, controlled ([facility]) Fibromyalgia, primary Fracture of right hip, closed, initial encounter ([facility]) 01/17/2024 GERD (gastroesophageal reflux disease) Hyperlipidemia Hypertension Insulin-treated type 2 diabetes mellitus ([facility]) Joint pain Kidney stones Liver disease Low back pain Neck pain Obesity Osteoarthritis Visual impairment Past Surgical History: Past Surgical History: Procedure Laterality Date BACK SURGERY COLON SURGERY resection, 2018, [facility] DAVINCI REPAIR HERNIA VENTRAL N/A 10/27/2021 Performed by Ridge Cedillo MD at [facility] DENTAL SURGERY pt had all teeth removed HERNIA REPAIR x's 2 ORTHOPEDIC SURGERY 2007 foot, infected foot Brief Clinical Summary: Patient [facility] d/t right hip pain s/p fall. [facility] with right hip fracture. PMHx includes IDDM2, [...] (L) 01/17/2024 Lab Results Component Value Date [id number] 242 01/17/2024 Lab Results Component Value Date [...] Stephen Hannah MD 0.4 mg at 01/17/24 4473 Nutrition Focused Physical Findings Last BM 01/14 Extremities, Muscles, and Bones A. Muscle Loss-EMILY not on floor B. Loss of Subcutaneous Fat-EMILY not on floor Skin (per nursing flow sheets): Skin Color: Price (01/18/24 133) Skin Temp: Dry; Warm (01/18/241334) Wound (per nursing flow sheets): Wound 01/18/24 Incision Leg Right-Site Assessment: Unable to assess (01/18/241334) Gastrointestinal (per nursing flow sheets): Abdomen Assessment: Rounded; Obese (01/18/24 133) Last BM Date: 01/15/24 (01/18/24 0800) Passing Flatus: No (01/18/241334) RUQ Bowel Sounds: Hypoactive (01/18/24 133) LUQ Bowel Sounds: Hypoactive (01/18/24 133) RLQ Bowel Sounds: Hypoactive (01/18/241334) LLQ Bowel Sounds: Hypoactive (01/18/24 133) GI Symptoms: None (01/18/241334) Edema (per nursing [...] floor.Patient did not trigger for decreased PO COAGULATING BATH MIXER per nursing screen. Allergies: Allergies Allergen Reactions [...] from 08/19/22) Usual Body Weight: 113.4kg (08/19/22) [place] Body Weight: 83.6kg Percent [place] Body Weight: 139 Weight Changes: Need new weight, bed scale vs standing scale. Body Mass Index: Body mass index is 33.65 kg/m . BMI Category: Obese class 1 (30.00- 34.99) Comparative Standards: Estimated Energy Needs: 9931-3760 kcals daily. Method and weight used: 25-32 kcal/kg IBW (83.6kg) Estimated Protein Needs: 100-165 grams daily. Method and weight used: 1.2-2g protein/kg IBW Estimated Fluid Needs: 4709-0954 ml daily. Method weight used: 1ml/kcal Comments: [...] Nails RD, AARTI Clinical Dietitian Direct Line: * Ang Figueroa MD - 01/17/2024 10:58 AM EDT Images from the original note were not included. Chief complaint: right hip pain HPI: Ruth Smith is a 53 y.o. male presents to [facility] c/o right hip pain after a [...] at outside hospital and was [facility]. Patient has no other [...] pain disorder Colon cancer (CMS-HCC) Colon cancer ([facility]) Depression Diabetes mellitus type 2, controlled ([facility]) Fibromyalgia, primary GERD (gastroesophageal reflux disease) Hyperlipidemia Hypertension Insulin-treated type 2 diabetes mellitus ([facility]-HCC) Joint pain Kidney stones Liver disease Low back pain Neck pain Obesity Osteoarthritis Visual impairment Past Surgical History: Procedure Laterality Date BACK SURGERY COLON SURGERY resection, 2018, [facility] DAVINCI REPAIR HERNIA VENTRAL N/A 10/27/2021 Performed by Ridge Cedillo MD at [facility]ENTAL SURGERY pt had all teeth removed [...] contact ortho hot pager for any questions/concerns [phone] LUIS FAUSTIN PA-C 01/17/24 1112 I, ANG FIGUEROA MD, personally performed the face to face diagnostic evaluation on this patient. My findings are as follows: Patient seen evaluated in the emergency department. He was transferred from [place] for orthopedic care to [place]. He had a mechanical fall resulting in [...] standpoint. Ang Figueroa MD. documented in this encounterFirelands Regional Medical CenterGlobalLogic [facility]ipp [id number] Progress note* PT/OT/BAR WAITER/WAITRESS - NALLELY Meneses - 01/20/2024 10:11 AM [...] Utilized gait belt to act as leg textile screen maker; instructed pt to lift R leg to [...] OT Outcomes Date/Time User Outcome 01/20/24 09Elpidio Goins, SERIVN/L Progressing 01/19/24 1531 Nano Maher SERVIN/L Progressing Problem: Bed Mobility Dates: Start: 01/19/24 Disciplines: OT Goal: Patient will perform bed mobility with Modified [place] Dates: Start: 01/19/24 Expected End: 02/09/24 Description: Goal Description: Disciplines: OT Outcomes Date/Time User Outcome 01/20/24 0945 Katlin Goins, SERVIN/L Progressing 01/19/24 1531 CHARU HernandezA/Lanie Progressing Problem: Functional Mobility Dates: Start: 01/19/24 Disciplines: OT Goal: Patient will perform functional mobility with Modified [place] Dates: Start: 01/19/24 Expected End: 02/09/24 Description: [...] OT Outcomes Date/Time User Outcome 01/20/24 09Elpidio Goins, SERVIN/L Progressing 01/19/24 1531 NALLELY Hernandez Progressing Problem: Strength Dates: Start: 01/19/24 Disciplines: OT Goal: Improve strength Dates: Start: 01/19/24 Expected End: 02/09/24 Description: Of extremity/ location: Tolerate bilat UE exercises to increase strength and endurancefor self care tasks. To facilitate: Disciplines: OT Outcomes Date/Time User Outcome 01/19/24 1531 NALLELY Hernandez Progressing Problem: Transfers Dates: Start: 01/19/24 Disciplines: OT Goal: Patient will perform transfers with Modified [place] Dates: Start: 01/19/24 Expected End: 02/09/24 Description: Goal Description: Disciplines: OT Outcomes Date/Time User Outcome 01/20/24 0945 NALLELY Meneses Progressing 01/19/24 1531 NALLELY Hernandez Progressing Occupational Therapy Care Plan (Resolved) There are no resolved problems. Principal Problem: Closed fracture of right hip, initial encounter ([facility]) Active Problems: Closed displaced intertrochanteric fracture of right femur ([facility] Associated attestation - Virgil Nunes OTR/L - 01/20/2024 1:17 PM EDT I have reviewed and agree with this note and education documentation for this visit. [facility]06-08-2024 Progress note* PT/OT/BAR WAITER/WAITRESS - Shahrzad Garcias PTA - 01/20/2024 8:17 [...] EOB. Use of gait belt as limb textile screen maker for RLE with fair- poor carryover. Pt displayed decreased ability to scoot hips to EOB d/t pain in R hip and required assistance from instructional writer to complete. Pt denied dizziness with [...] handles to complete. First attempt was unsuccessful. Flight Operations Coordinator educated pt on use of momentum and [...] Closed fracture of right hip, initial encounter ([facility]) Active Problems: Closed displaced intertrochanteric fracture of right femur ([facility]) Associated attestation - Brady Jauregui PT - 01/20/2024 3:30 PM EDT I have reviewed and agree with this note and education documentation for this visit. [facility]06-07-2024 Progress note* Discharge Planning Note - Jackie Caal - 01/19/2024 3:48 PM EDT DISCHARGE PLANNING NOTE Referral to [address]- [place] (P# ; F# ); [place] (P#[phone] ; F# [phone]) and [facility] ([place]- P# ; F# ) ([place], [place] P# ; F#) [employer]06-07-2024 Progress note* PT/OT/BAR WAITER/WAITRESS - MALATHI Hernandez/Lanie - 01/19/2024 3:32 PM [...] Patient will perform bed mobility with Modified [place] Dates: Start: 01/19/24 Expected End: 02/09/24 Description: Goal Description: Disciplines: OT Outcomes Date/Time User Outcome 01/19/24 153MALATHI Sunshine/Lanie Progressing Problem: Functional Mobility Dates: Start: 01/19/24 Disciplines: OT Goal: Patient will perform functional mobility with Modified [place] Dates: Start: 01/19/24 Expected End: 02/09/24 Description: Goal Description: Disciplines: OT Outcomes Date/Time User Outcome 01/19/24 MALATHI Campuzano/Lanie Progressing Problem: Other (Customize) Dates: Start: 01/19/24 Disciplines: OT Goal: Improve Dates: Start: 01/19/24 Expected End: 02/09/24 Description: Goal Description: Complete ADLs [place] with AE/DME Disciplines: OT Problem: Sitting Balance Dates: Start: 01/19/24 Disciplines: OT Goal: Improve balance to good Dates: Start: 01/19/24 Expected End: 02/09/24 Description: Static Dynamic Disciplines: OT Outcomes Date/Time User Outcome 01/19/24 MALATHI Campuzano/Lanie Progressing Problem: Standing Balance Dates: Start: 01/19/24 Disciplines: OT Goal: Improve balance to good Dates: Start: 01/19/24 Expected End: 02/09/24 Description: Static Dynamic Disciplines: OT Outcomes Date/Time User Outcome 01/19/24 153MALATHI Sunshine/Lanie Progressing Problem: Strength Dates: Start: 01/19/24 Disciplines: OT Goal: Improve strength Dates: Start: 01/19/24 Expected End: 02/09/24 Description: Of extremity/ location: Tolerate bilat UE exercises to increase strength and endurancefor self care tasks. To facilitate: Disciplines: OT Outcomes Date/Time User Outcome 01/19/24 MALATHI Campuzano/Lanie Progressing Problem: Transfers Dates: Start: 01/19/24 Disciplines: OT Goal: Patient will perform transfers with Modified [place] Dates: Start: 01/19/24 Expected End: 02/09/24 Description: Goal Description: Disciplines: OT Outcomes Date/Time User Outcome 01/19/24 MALATHI Campuzano/Lanie Progressing Occupational Therapy Care Plan (Resolved) There are no resolved problems. Principal Problem: Closed fracture of right hip, initial encounter ([facility]) Active Problems: Closed displaced intertrochanteric fracture of right femur ([facility]) Associated attestation - Virgil Nunes OTR/L - 01/20/2024 1:17 PM EDT I have reviewed and agree with this note and education documentation for this visit. [facility]06-07-2024 Progress note* Discharge Planning Note - JEWEL [...] home care arranged. Referral's were placed to [address] (1st choice) & [facility], await acceptance. - JEWEL Crenshaw 01/19/24 3:08 PM [facility]06-07-2024 Progress note* PT/OT/BAR WAITER/WAITRESS - Shahrzad Garcias PTA - 01/19/2024 1:55 [...] transition. Pt had difficutly following direction/cueing from instructional writer. Visual demo and tactile cueing provided [...] Closed fracture of right hip, initial encounter ([facility] Active Problems: Closed displaced intertrochanteric fracture of right femur ([facility]) Associated attestation - Brady Jauregui, PT - 01/20/2024 3:30 PM EDT I have reviewed and agree with this note and education documentation for this visit. [employer]06-07-2024 Progress note* PT/OT/BAR WAITER/WAITRESS - Lindsay Infante, PT - 01/19/2024 1:52 PM EDT Physical Therapy Evaluation Discharge Recommendations PT Recommendations: Inpatient Rehab Inpatient Rehab Criteria: All inpatient rehab criteria expected to be met Therapy Plan Need for skilled Physical Therapy to address deficits in functional mobility due to a status decline resulting from hospitalization. Pt to [facility] via EMS with Rt LE pain. [...] from lisinopril Chronic pain disorder Colon cancer ([facility]) COPD (chronic obstructive pulmonary disease) ([facility]) Depression Diabetes mellitus type 2, controlled ([facility]) Fibromyalgia, primary Fracture of right hip, closed, initial encounter ([facility]) 01/17/2024 GERD (gastroesophageal reflux disease) Hyperlipidemia Hypertension Insulin-treated type 2 diabetes mellitus ([facility]) Joint pain Kidney stones Liver disease Low back pain Neck pain Obesity Osteoarthritis Visual impairment Past Surgical History: Procedure Laterality Date BACK SURGERY COLON SURGERY resection, 2018, [facility] DAVINCI REPAIR HERNIA VENTRAL N/A 10/27/2021 Performed by Ridge Cedillo MD at [facility]GERY pt had all teeth removed HERNIA REPAIR x's 2 INSERTION INTRAMEDULLARY NAIL FEMUR-TFNA HIP FX Right 01/18/2024 Performed by Ang Figueroa MD at [facility] SURGERY 2008 foot, infected foot 6 Clicks: Basic Mobility [...] Closed fracture of right hip, initial encounter ([facility]) Active Problems: Closed displaced intertrochanteric fracture of right femur ([facility]) [employer] [id number] Progress note* PT/OT/BAR WAITER/WAITRESS - Thalia Han OTR/Lanie - 01/19/2024 1:03 [...] None Scoring Daily Activity Raw Score: 16 [facility] G Code Modifier: CK Therapy Plan Need for skilled Occupational Therapy to address deficits in ADL independence and functional mobility due to a status decline resulting from hospitalization. Pt to [facility] via EMS with Rt LE pain. Pt reported that he had tripped over a dog and landed on Rt knee. Pt found to have a Rt IT nondisplaced fx 01/17 pt underwent IM nailing Rt IT hip fx Pt is WBAT Rt LE Scoring Daily Activity Raw Score: 16 [facility] G Code Modifier: CK Past Medical History: Diagnosis Date Asthma Back pain Chronic cough from lisinopril Chronic pain disorder Colon cancer ([facility]) COPD (chronic obstructive pulmonary disease) ([facility]) Depression Diabetes mellitus type 2, controlled ([facility]) Fibromyalgia, primary Fracture of right hip, closed, initial encounter ([facility]) 01/17/2024 GERD (gastroesophageal reflux disease) Hyperlipidemia Hypertension Insulin-treated type 2 diabetes mellitus ([facility]) Joint pain Kidney stones Liver disease Low back pain Neck pain Obesity Osteoarthritis Visual impairment Past Surgical History: Procedure Laterality Date BACK SURGERY COLON SURGERY resection, 2018, [facility] DAVINCI REPAIR HERNIA VENTRAL N/A 10/27/2021 Performed by Ridge Cedillo MD at [facility] pt had all teeth removed HERNIA REPAIR x's 2 INSERTION INTRAMEDULLARY NAIL FEMUR-TFNA HIP FX Right 01/18/2024 Performed by Ang Figueroa MD at [facility] 2007 foot, infected foot Chief [...] shower chair) Other : No AE/DME needs COAGULATING BATH MIXER Prior Function Lives With: Alone Receives Help [...] (shoulder chronic pain. shoulder and elbow 4-/5. Glass Presser 3+/5) Activity Tolerance Endurance: Tolerates >30 minutes [...] Patient will perform bed mobility with Modified [place] Dates: Start: 01/19/24 Expected End: 02/09/24 Description: Goal Description: Disciplines: OT Problem: Functional Mobility Dates: Start: 01/19/24 Disciplines: OT Goal: Patient will perform functional mobility with Modified [place] Dates: Start: 01/19/24 Expected End: 02/09/24 Description: [...] Goal: Patient will perform transfers with Modified [place] Dates: Start: 01/19/24 Expected End: 02/09/24 Description: Goal Description: Disciplines: OT Occupational Therapy Care Plan (Resolved) There are no resolved problems. Principal Problem: Closed fracture of right hip, initial encounter ([facility]) Active Problems: Closed displaced intertrochanteric fracture of right femur ([facility]) [employer] Kate [id number] Plan of care note* Plan of Care - Lian Silva RN - 01/19/2024 12:34 PM EDT Problem: Pain Goal: Patient goal is pain score less than 4, able to rest, and participant in treatment plan as appropriate Description: INTERVENTIONS: 1. Encourage patient or legal field representative to report early pain and ask [...] per policy 9. Teach patient or legal field representative interventions for comforting Outcome: Progressing Note: [...] at the bedside 7. Instruct patient/ patient field representative about use of safety devices 8. Include patient/ patient field representative in decisions related to safety Outcome: [...] Score of =/> 25 or indicated by [facility] Assessment Goal: Patient should be free from fall Description: Interventions: 1. [place] to environment 2. Hourly rounds addressing the [...] non-skid footwear 11. Teach patient and patient field representative to maintain environment for safety and [...] (cane, walker) within reach 19. Request patient field representative bring adaptive equipment/mobility aids from home or obtain and provide as needed 20. Consult pharmacy regarding effects of med's affecting mobility, cognition, and alternatives 21. Obtain physician order for PT if risk factors associated with mobility are present 22. Obtain physician order for OT as appropriate 23. Utilize diversional activities 24. Educate patient and patient field representative how to maintain a safe environment during visitationtimes (notify nurse prior to leaving bedside) 25. Consider appropriateness of medical or non-medical reception specialist 26. Set up voiding schedule as appropriate (every 2 hours) Outcome: Progressing Note: Evaluation of progress towards goal: Call light within reach. Remains free of fall or injury.Environment free of clutter. [employer] [id number] Plan of care note* Plan of Care [...] hygiene technique 7. Identify and instruct patient/patient field representative in use of appropriate isolation precautionsfor identified infection/symptoms 8. Provide and discuss with patient/patient field representative on educational MDRO sheet 9. Encourage and monitor nutritional status daily and consult heat treater if indicated 10. Implement neutropenic guidelines as [...] Score of =/> 25 or indicated by [facility] Assessment Goal: Patient should be free from fall Description: Interventions: 1. [place] to environment 2. Hourly rounds addressing the [...] non-skid footwear 11. Teach patient and patient field representative to maintain environment for safety and [...] (cane, walker) within reach 19. Request patient field representative bring adaptive equipment/mobility aids from home or obtain and provide as needed 20. Consult pharmacy regarding effects of med's affecting mobility, cognition, and alternatives 21. Obtain physician order for PT if risk factors associated with mobility are present 22. Obtain physician order for OT as appropriate 23. Utilize diversional activities 24. Educate patient and patient field representative how to maintain a safe environment during visitationtimes (notify nurse prior to leaving bedside) 25. Consider appropriateness of medical or non-medical reception specialist 26. Set up voiding schedule as appropriate (every 2 hours) Outcome: Progressing Note: Evaluation of progress towards goal: Patient remains fall free at this time, fall precautionsin place. [facility]06-06-2024 Nurse Note* Gurjit Drummond RN - 01/18/2024 3:27 PM EDT Pt here in Rad Holding from Xray. Pt. C/o right hip surgery site pain. 9. MALCOLM RN put 2 bags of ice to the surgery site . [facility]06-06-2024 Nurse Note* Gurjit Drummond RN - 01/18/2024 3:27 PM EDT Pt here in Rad Holding from Xray. Pt. C/o right hip surgery site pain. 910. MALCOLM RN put 2 bags of ice to the surgery site . * Gin Palm RN - 01/18/2024 7:49 AM EDT Patient arrived in rad holding from XRAY, awaiting transport. Patient denies any needs at this time. documented in this [facility] Consult note* AARTI Roach - 01/18/2024 2:17 PM EDTAssociated Order(s): IP CONSULT TO NUTRITION SERVICES NUTRITION ADULT INITIAL EVALUATION NUTRITION ASSESSMENT: Reason to be seen: Consult for assessment Patient History: Admit Diagnosis: Patient Active Problem List Diagnosis Facial infection Abdominal pain Closed displaced intertrochanteric fracture of right femur ([facility]) Closed fracture of right hip, initial encounter ([facility] Past Medical History: Past Medical History: Diagnosis Date Asthma Back pain Chronic cough from lisinopril Chronic pain disorder Colon cancer ([facility]) COPD (chronic obstructive pulmonary disease) ([facility]) Depression Diabetes mellitus type 2, controlled ([facility]) Fibromyalgia, primary Fracture of right hip, closed, initial encounter ([facility]) 01/17/2024 GERD (gastroesophageal reflux disease) Hyperlipidemia Hypertension Insulin-treated type 2 diabetes mellitus ([facility]) Joint pain Kidney stones Liver disease Low back pain Neck pain Obesity Osteoarthritis Visual impairment Past Surgical History: Past Surgical History: Procedure Laterality Date BACK SURGERY COLON SURGERY resection, 2018, [facility] DAVINCI REPAIR HERNIA VENTRAL N/A 10/27/2021 Performed by Ridge Cedillo MD at [facility]ERY pt had all teeth removed HERNIA REPAIR x's 2 ORTHOPEDIC SURGERY 2007 foot, infected foot Brief Clinical Summary: Patient initially presented to [facility] d/t right hip pain s/p fall. [facility] with right hip fracture. PMHx includes IDDM2, [...] (L) 01/17/2024 Lab Results Component Value Date [id number] 242 01/17/2024 Lab Results Component Value Date [...] tablet 1,000 mg 1,000 mg oral Q6H [facility] Stephen Hannah MD 1,000 mg at 01/18/24523 [Transfer Hold] albuterol (PROVENTIL,VENTOLIN) nebulizer solution 2.5 [...] Daily Stephen Hannah MD 20 mg at 01/18/24844 [Transfer Hold] cyclobenzaprine (FLEXERIL) tablet 10 mg [...] Geoffrey Mckee DO 1 mg at 01/18/24 08 [Transfer Hold] ibuprofen (MOTRIN) tablet 800 mg [...] Nightly Stephen Hannah MD 0.4 mg at 01/17/242147 Nutrition Focused Physical Findings Last BM 01/14 Extremities, Muscles, and Bones A. Muscle Loss-EMILY not on floor B. Loss of Subcutaneous Fat-EMILY not on floor Skin (per nursing flow sheets): Skin Color: Price (01/18/241334) Skin Temp: Dry; Warm (01/18/241334) Wound (per nursing flow sheets): Wound 01/18/24 Incision Leg Right-Site Assessment: Unable to assess (01/18/241334) Gastrointestinal (per nursing flow sheets): Abdomen Assessment: Rounded; Obese (01/18/241334) Last BM Date: 01/15/24 (01/18/24 0800) Passing Flatus: No (01/18/241334) RUQ Bowel Sounds: Hypoactive (01/18/24 133) LUQ Bowel Sounds: Hypoactive (01/18/24 133) RLQ Bowel Sounds: Hypoactive (01/18/241334) LLQ Bowel [...] floor.Patient did not trigger for decreased PO COAGULATING BATH MIXER per nursing screen. Allergies: Allergies Allergen Reactions [...] from 08/19/22) Usual Body Weight: 113.4kg (08/19/22) [place] Body Weight: 83.6kg Percent [place] Body Weight: 139 Weight Changes: Need new weight, bed scale vs standing scale. Body Mass Index: Body mass index is 33.65 kg/m . BMI Category: Obese class 1 (30.00- 34.99) Comparative Standards: Estimated Energy Needs: 5552-9801 kcals daily. Method and weight used: 25-32 kcal/kg IBW (83.6kg) Estimated Protein Needs: 100-165 grams daily. Method and weight used: 1.2-2g protein/kg IBW Estimated Fluid Needs: 7170-1213 ml daily. Method weight used: 1ml/kcal Comments: [...] Nails RD, AARTI Clinical Dietitian Direct Line: [facility]06-06-2024 Procedure note* Op Note - Ang Figueroa MD - 01/18/2024 12:24 PM EDT DATE OF OPERATION: January 18, 2024 PREOPERATIVE DIAGNOSIS: 1. right intertrochanteric hip fracture. POSTOPERATIVE DIAGNOSIS: 1. Same OPERATION: 1. IM nail right intertrochanteric hip fracture.- 07423 SURGEON: Ang Figueroa MD PRINTING WORKER SUPERVISOR: none ANESTHESIA: General. MEDICATIONS: ancef IV preop. [...] , damage to normal structure, PE, DVT, RI, stroke, nonunion, malunion, chronicpain, arthrosis, arthritis, limited [...] at time of surgery. ANG FIGUEROA MD [facility]06-06-2024 Attending History and physical note* Ang Figueroa [...] is a 53 y.o. male presents to [facility] c/o right hip pain after a [...] at outside hospital and was transferred to [facility] for[facility]. Patient has no other [...] Date BACK SURGERY COLON SURGERY resection, 2018, [facility] DAVINCI REPAIR HERNIA VENTRAL N/A 10/27/2021 Performed by Ridge Cedillo MD at [facility]ERY pt had all teeth removed [...] contact ortho hot pager for any questions/concerns [phone] LUIS FAUSTIN PA-C 01/17/24 1112 I, ANG FIGUEROA MD, personally performed the face to face diagnostic evaluation on this patient. My findings are as follows: Patient seen evaluated in the emergency department. He was transferred from [place] for orthopedic care to [place]. He had a mechanical fall resulting in [...] for the medical standpoint. Ang Figueroa MD. [employer] Work Phone: [phone]) 855-667806-06-2024 History and physical note* Ang Figueroa MD [...] is a 53 y.o. male presents to [facility] c/o right hip pain after a [...] at outside hospital and was transferred to [facility] forfurther management. Patient has no other [...] Chronic cough Chronic pain disorder Colon cancer ([facility]) Colon cancer ([facility]) Depression Diabetes mellitus type 2, controlled ([facility]) Fibromyalgia, primary GERD (gastroesophageal reflux disease) Hyperlipidemia Hypertension Insulin-treated type 2 diabetes mellitus ([facility]) Joint pain Kidney stones Liver disease Low back pain Neck pain Obesity Osteoarthritis Visual impairment Past Surgical History: Procedure Laterality Date BACK SURGERY COLON SURGERY resection, 2018, [facility] DAVINCI REPAIR HERNIA VENTRAL N/A 10/27/2021 Performed by Ridge Cedillo MD at [facility] pt had all teeth [...] contact ortho hot pager for any questions/concerns [phone] LUIS FAUSTIN, PA-C 01/17/24 1112 I, ANG FIGUEROA MD, personally performed the face to face diagnostic evaluation on this patient. My findings are as follows: Patient seen evaluated in the emergency department. He was transferred from [place] for orthopedic care to [place]. He had a mechanical fall resulting in [...] Closed fracture of right hip, initial encounter ([facility] CHIEF COMPLAINT: Right hip pain SUBJECTIVE: Patient is a 53-year-old male with known Hx/o DM2, HTN, HLD, COPD, Chronic pain disorder, Fibromyalgia, GERD/Esophagitis, Colon cancer s/p sigmoid colectomy, Liver cirrhosis secondary to hepatitis C,Chronic thrombocytopenia, cervical radiculopathy related to C5-C7 herniated disc presents with mechanical fall and right hip pain initially to [facility] and transferred to [facility]. Patient awake oriented x3 does not [...] Date BACK SURGERY COLON SURGERY resection, 2018, [facility] DAVINCI REPAIR HERNIA VENTRAL N/A 10/27/2021 Performed by Ridge Cedillo MD at [facility] DENTAL SURGERY pt had all teeth removed [...] fall and right hip pain initially to [facility] and transferred to [facility]. 1. Acute nondisplaced intertrochanteric right hip fracture due to mechanical fall. Orthopedic surgery consulted with likely plans for surgery tomorrow. Per RCRI cardiac risk index scores 1 point for insulin dependent diabetes, is class 2 risk with 6% 30 day risk of , RI or cardiac arrest, non prohibitive can proceed with surgery. In settings of liver cirrhosis is CTP class A, MELD score 7, per Vocal-Spenser score has only 0.6%30 day mortality risk, [...] This note was completed using a voice welt stitch cleaner system. Every effort was made to ensure accuracy. However, inadvertent computerized welt stitch cleaner errors may be present. [facility] [id number] Progress note* Discharge Planning Note - JEWEL Crenshaw - 01/18/2024 10:29 AM EDT Images from the original note were not included. DISCHARGE PLANNING NOTE SW met with patient introduced self & role. Pt was alert, oriented during assessment. Pt was transferred to [facility] from [facility] where pt presented with leg and hip [...] Yes List Provided: Yes CarePort List Provided: [facility] Facility Initial DC Assessment Completed: Yes Patient Goals: Goals: Goals (pt-stated) Evaluation of progress towards goal: possible rehab placement vs home pending progress, recommendations and pt decision - JEWEL Crenshaw 01/18/24 10:33 AM [facility]06-06-2024 Hospital Discharge instructions* Discharge Instructions* Tom Marquez PA-C - 01/18/2024 10:29 AM EDT ORTHOPAEDIC DISCHARGE INSTRUCTIONS Diagnosis: right IT hip fracture Procedure: short IMN right hip Follow-Up Appointment: Dr. Figueroa on 02/01/24 @ 9:30AM Office Location: [facility] [address] [place], [place] [address] Call 911 immediately if you experience: Chest [...] and is not recommended. documented in this [facility] Plan of care note * Plan of Care - Lian Silva RN - 01/18/2024 9:02 AM EDT Problem: Pain Goal: Patient goal is pain score less than 4, able to rest, and participant in treatment plan as appropriate Description: INTERVENTIONS: 1. Encourage patient or legal field representative to report early pain and ask [...] per policy 9. Teach patient or legal field representative interventions for comforting Outcome: Progressing Note: [...] at the bedside 7. Instruct patient/ patient field representative about use of safety devices 8. Include patient/ patient field representative in decisions related to safety Outcome: [...] hygiene technique 7. Identify and instruct patient/patient field representative in use of appropriate isolation precautionsfor identified infection/symptoms 8. Provide and discuss with patient/patient field representative on educational MDRO sheet 9. Encourage and monitor nutritional status daily and consult heat treater if indicated 10. Implement neutropenic guidelines as needed 11. Review exposure to history of communicable disease and recent travel history on admission 12. Encourage annual influenza vaccine 13. Encourage pneumonia vaccine Outcome: Progressing Note: Evaluation of progress towards goal: Skin integrity remains in stable condition; remains w/o ss of infection, fever, pain, or increased discomfort. Problem: Knowledge Deficit Goal: Patient/patient field representative demonstrates understanding of disease process, treatment [...] discharge planning process 5. Communicate referral to personal development educator as appropriate 6. Communicate referral to heat treater as appropriate 7. Collaborate with case management/social media coordinator for discharge needs Outcome: Progressing Note: Evaluation of progress towards goal: Discharge planning in process; will continue to monitor for discharge needs. Problem: Moderate - High Risk Fall Score Description: Arredondo Fall Score of =/> 25 or indicated by [facility] Assessment Goal: Patient should be free from fall Description: Interventions: 1. [place] to environment 2. Hourly rounds addressing the [...] non-skid footwear 11. Teach patient and patient field representative to maintain environment for safety and [...] (cane, walker) within reach 19. Request patient field representative bring adaptive equipment/mobility aids from home or obtain and provide as needed 20. Consult pharmacy regarding effects of med's affecting mobility, cognition, and alternatives 21. Obtain physician order for PT if risk factors associated with mobility are present 22. Obtain physician order for OT as appropriate 23. Utilize diversional activities 24. Educate patient and patient field representative how to maintain a safe environment during visitationtimes (notify nurse prior to leaving bedside) 25. Consider appropriateness of medical or non-medical reception specialist 26. Set up voiding schedule as appropriate (every 2 hours) Outcome: Progressing Note: Evaluation of progress towards goal: Call light within reach. Remains free of fall or injury.Environment free of clutter. [facility] [employer] [id number] Nurse Note* Gin Palm RN - 01/18/2024 7:49 AM EDT [facility], awaiting transport. Patient denies any needs at this time. 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 Pt scheduled for hip fracture repair this date. Will check back post op [facility]-06[facility]2024 Plan of care note* Plan of Care - Carin Contreras RN - 01/18/2024 5:30 AM EDT Problem: Moderate - High Risk Fall Score Description: Arredondo Fall Score of =/> 25 or indicated by [facility] Assessment Goal: Patient should be free from fall Description: Interventions: 1. [place] to environment 2. Hourly rounds addressing the [...] non-skid footwear 11. Teach patient and patient field representative to maintain environment for safety and [...] (cane, walker) within reach 19. Request patient field representative bring adaptive equipment/mobility aids from home or obtain and provide as needed 20. Consult pharmacy regarding effects of med's affecting mobility, cognition, and alternatives 21. Obtain physician order for PT if risk factors associated with mobility are present 22. Obtain physician order for OT as appropriate 23. Utilize diversional activities 24. Educate patient and patient field representative how to maintain a safe environment during visitationtimes (notify nurse prior to leaving bedside) 25. Consider appropriateness of medical or non-medical reception specialist 26. Set up voiding schedule as appropriate (every 2 hours) Outcome: Progressing Note: Evaluation of progress towards goal: Patient remains fall free at this time. Fall precautionsin place. [facility]06-05-2024 Emergency department Note* Michelle De La O RN - 01/17/2024 3:02 PM EDT Bed: 34 Expected date: Expected time: Means of arrival: Comments: B1 Bonner-- pt still in room, should be headed up shortly [facility]06-05-2024 Emergency department Note* Vivek Harrison RN - 01/17/2024 3:02 PM EDT Bed: 33 Expected date: Expected time: Means of arrival: Comments: T4 [facility]06-05-2024 Emergency department Note* Michelle De La O [...] - 01/17/2024 10:38 AM EDT Per manav Redding, pt will go to surgery 01/17. * Vivek Harrison RN - 01/17/2024 10:01 AM EDT Bed: B1 Expected date: Expected time: Means of arrival: [facility] EMS Comments: 53 YO M [place] transfer Ruth Smith 53 yrs M (1970) [place] [facility] tripped over dog has non displaced hip fracture Dr Jenkins wants to plan surgery today, Dr Wahl ED med control updated on patient also Palacios placed with 2L output Dilaudid given 121/91 80 HR 99%RA RR 16 EMS 82 HR 96%RA 127/87 ETA 15 min documented in this encounterRiverview Health Institute06-05-2024 History and physical note* Stehpen Hannah MD - 01/17/2024 11:03 AM EDT Principal Problem: Closed fracture of right hip, initial encounter ([facility]) CHIEF COMPLAINT: Right hip pain SUBJECTIVE: Patient is a 53-year-old male with known Hx/o DM2, HTN, HLD, COPD, Chronic pain disorder, Fibromyalgia, GERD/Esophagitis, Colon cancer s/p sigmoid colectomy, Liver cirrhosis secondary to hepatitis C,Chronic thrombocytopenia, cervical radiculopathy related to C5-C7 herniated disc presents with mechanical fall and right hip pain initially to [facility] and transferred to [facility]. Patient awake oriented x3 does not be [...] Date BACK SURGERY COLON SURGERY resection, 2018, [facility] DAVINCI REPAIR HERNIA VENTRAL N/A 10/27/2021 Performed by Ridge Cedillo MD at [facility] DENTAL SURGERY pt had all teeth removed HERNIA REPAIR x's 2 ORTHOPEDIC SURGERY 2008 foot, infected foot HOME MEDICATIONS: Home medications [...] fall and right hip pain initially to [facility] and transferred to [facility]. 1. Acute nondisplaced intertrochanteric right hip fracture due to mechanical fall. Orthopedic surgery consulted with likely plans for surgery tomorrow. Per RCRI cardiac risk index scores 1 point for insulin dependent diabetes, is class 2 risk with 6% 30 day risk of , RI or cardiac arrest, non prohibitive can proceed with surgery. In settings of liver cirrhosis is CTP class A, MELD score 7, per Vocal-Spenser score has only 0.6%30 day mortality risk, [...] This note was completed using a voice welt stitch cleaner system. Every effort was made to ensure accuracy. However, inadvertent computerized welt stitch cleaner errors may be present. [employer] Work Phone: [phone]) 354-476006-05-2024 Consult note* Ang Figueroa MD - 01/17/2024 10:58 AM EDT Images from the original note were not included. Chief complaint: right hip pain HPI: Ruth Smith is a 53 y.o. male presents to [facility] c/o right hip pain after a [...] at outside hospital and was transferred to [facility] management. Patient has no other [...] Chronic cough Chronic pain disorder Colon cancer ([facility]) Colon cancer ([facility]) Depression Diabetes mellitus type 2, controlled ([facility]) Fibromyalgia, primary GERD (gastroesophageal reflux disease) Hyperlipidemia Hypertension Insulin-treated type 2 diabetes mellitus ([facility]) Joint pain Kidney stones Liver disease Low back pain Neck pain Obesity Osteoarthritis Visual impairment Past Surgical History: Procedure Laterality Date BACK SURGERY COLON SURGERY resection, 2018, [facility] DAVINCI REPAIR HERNIA VENTRAL N/A 10/27/2021 Performed by Ridge Cedillo MD at [facility] D[facility]ERY pt had all teeth [...] with and/or edited the report Finalized by Syvlester Collins MD on 01/17/2024 3:54 AM X-ray [...] contact ortho hot pager for any questions/concerns [phone] LUIS FAUSTIN PA-C 01/17/24 1112 I, ANG FIGUEROA MD, personally performed the face to face diagnostic evaluation on this patient. My findings are as follows: Patient seen evaluated in the emergency department. He was transferred from [place] for orthopedic care to [place]. He had a mechanical fall resulting in [...] for the medical standpoint. Ang Figueroa MD. [employer] [id number] Progress note* Situational Awareness - Jeff Martin MD - 01/17/2024 10:57 AM EDT ED called Report to [facility] for Admission Pt transferred to for Ortho, morbid obesity, fall with hip fracture requiring OR, plan for tomorrow. Background HLD, IDDM2. No h/o CAD. Reported no other hemodynamic or acute medical concerns at this time. JEFF MARTIN MD [employer] Work Phone: [phone] Emergency department Note* Coral Sanford RN - 01/17/2024 10:38 AM EDT Per manav Redding PA, pt will go to surgery 01/17. [employer]06-05-2024 Emergency department Note* Vivek Harrison RN - 01/17/2024 10:01 AM EDT Bed: B1 Expected date: Expected time: [facility]: 53 Y[facility] M [place] [facility] Ruth Smith Carlo 53 yrs M (1970) [place] [facility] tripped over dog has non displaced hip fracture Dr Jenkins wants to plan surgery today, Dr Wahl ED med control updated on patient also Palacios placed with 2L output Dilaudid given 121/91 80 HR 99%RA RR 16 EMS 82 HR 96%RA 127/87 ETA 15 min [employer]01-16-2024 Evaluation note* Encounter Date Diagnosis Assessment Notes Treatment Notes Treatment Clinical Notes Aug, Irritable bowel syndrome with diarrhea (ICD-10 - K58.0) [employer] Other 12-28-2023 Evaluation note* Encounter Date Diagnosis Assessment Notes Treatment Notes Treatment Clinical Notes Jul, GERD (gastroesophageal reflux disease) (ICD-10 - K21.9) [employer] Other 10-30-2023 Evaluation note* Encounter Date Diagnosis Assessment Notes Treatment Notes Treatment Clinical Notes May, Irritable bowel syndrome with diarrhea (ICD-10 - K58.0) [employer] Other 09-19-2023 Evaluation note* Encounter Date Diagnosis Assessment Notes Treatment Notes Treatment Clinical Notes Apr, GERD (gastroesophageal reflux disease) (ICD-10 - K21.9) [employer] Other 08-08-2023 [facility]* Encounter Date Diagnosis Assessment Notes [...] Records release for blood work from PCP. [employer] Other 01-11-2023 Evaluation note* Encounter Date Diagnosis [...] educated on the risks and benefits of retirement opioid use. Percocet was refilled today, opioid [...] future. Aug, Other UDS performe d through [email or web address] lab today, will await confirmatory results. [employer] Other 01-06-2023 Evaluation note* Encounter Date Diagnosis [...] (ICD-10 - G89.29) Continue medications as prescribed [employer] Other [id number] [facility]Hol[facility]12-[facility]-20[facility] Evaluation note* Encounter Date Diagnosis Assessment [...] educated on the risks and benefits of retirement opioid use. Percocet was refilled today, opioid risk assessment was done as well as pill count. Patient is compliant with opioid medication. The patient denies any opioid related side effects. 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 Percocet was refilled today, opioid risk assessment was done as well as pill count. Patient is compliant with opioid medication. The patient denies any opioid related side effects. [employer] Other 09-14-2022 Evaluation note* Encounter Date Diagnosis [...] a RFA if applicable under fluoroscopic guidance. Apr, Chronic pain (ICD-10 - G89.29) I recommend patient increase Gabapentin to [employer] Other 08-18-2022 Evaluation note* Encounter Date Diagnosis [...] negative findings were considered in medical decision-making. [employer] Other 05-09-2022 Evaluation note* Encounter Date Diagnosis [...] December, Degenerative lumbar disc (ICD-10 - M51.36) [employer] Other 01-10-2022 Evaluation note* Encounter Date Diagnosis Assessment Notes Treatment Notes Treatment Clinical Notes Aug, Idiopathic peripheral neuropathy (ICD-10 - G60.9) Patient symptoms seem out of proportion to the amount of disease that we see in particular since has been no manager change the last 3 years. As such I [...] (degenerative disc disease), lumbosacral (ICD-10 - M51.37) [facility] [employer] Other evaluation noteNo InformationNortPennsylvania Hospital [employer] Other Evaluation noteN[facility]Pennsylvania Hospital [employer] Other Evaluation noteNo assessment information available [facility] Work Phone: Evaluation note* Diagnosis Onset Date Resolution Status Disorder of intervertebral disc at C5-C6 level acute [facility] Work Phone: Evaluation note* Diagnosis Onset Date Resolution Status Arthropathy of both shoulders acute Disorder of intervertebral disc at C5-C6 level acute Cirrhosis acute Diarrhea acute GERD (gastroesophageal reflux disease) acute IBS (irritable bowel syndrome) acute [facility] Work Phone: Evaluation note* Diagnosis Onset Date Resolution Status Cirrhosis acute GERD (gastroesophageal reflux disease) acute Irritable bowel syndrome with diarrhea acute [facility] Work Phone: Evaluation note* Diagnosis Paresthesia- Primary Disturbance of skin sensation [facility] Diagnosis Lumbar radiculopathy, chronic [facility] Diagnosis Lumbar radiculopathy, chronic [facility]* Diagnosis Lumbar radiculopathy, chronic [facility]* Diagnosis Lumbar radiculopathy, chronic- Primary History of lumbar surgery Lumbar spondylosis Lumbosacral spondylosis without myelopathy Bilateral hand pain [facility] this [facility]* Diagnosis Closed displaced intertrochanteric fracture of right femur ([facility])- Primary Closed displaced intertrochanteric fracture of right femur with routine healing, subsequent encounter- Primary Closed displaced intertrochanteric fracture of right femur, initial encounter ([facility]) documented [facility] this [facility]* Diagnosis Closed fracture of right hip, initial encounter ([facility])- Primary Closed fracture of right hip, initial encounter ([facility]) Closed displaced intertrochanteric fracture of right femur ([facility]) [facility]* Diagnosis Closed displaced intertrochanteric fracture of right femur, sequela- Primary Closed displaced subtrochanteric fracture of right femur, initial encounter ([facility]) [facility] Diagnosis Closed fracture of right hip, initial encounter ([facility])- Primary Closed fracture of right hip, initial encounter ([facility]) Periprosthetic fracture of hip, sequela Periprosthetic fracture of hip, subsequent encounter Myah-prosthetic fracture around prosthetic hip Myah-prosthetic fracture around prosthetic joint [facility]* Diagnosis Closed fracture of right hip, initial encounter ([facility]) [facility] encounter [facility] Diagnosis Closed fracture of right hip, initial encounter ([facility]) documented [facility] encounter [facility]* Diagnosis Localized swelling of right lower extremity- Primary Periprosthetic fracture of hip, subsequent encounter [facility] encounter [facility]* Diagnosis Periprosthetic fracture of hip, subsequent encounter- Primary documented [facility] encounter [facility]* Diagnosis Closed displaced intertrochanteric fracture of right femur with routine healing, subsequent encounter- Primary Trochanteric bursitis of right hip documented [facility] encounter [facility]* Diagnosis Closed fracture of right hip, initial encounter ([facility]) documented [facility] encounter [facility]* Diagnosis Closed fracture of right hip, initial encounter ([facility]) documented [facility] encounter [facility]* Diagnosis Disorder of sacrum- Primary Disorders of sacrum documented [facility] encounter [facility]* Diagnosis Closed displaced intertrochanteric fracture of right femur with routine healing, subsequent encounter- Primary documented [facility] encounter [facility]* Diagnosis Right knee pain, unspecified chronicity- Primary documented [facility] encounter [facility]* Diagnosis Right knee pain, unspecified chronicity- Primary documented [facility] encounter [facility]* Diagnosis Back pain, unspecified back location, unspecified back pain laterality, unspecified chronicity- Primary [facility]* Diagnosis Closed displaced intertrochanteric fracture of right femur with routine healing, subsequent encounter- Primary [facility] Diagnosis Lumbar radiculopathy, chronic- Primary Left cervical radiculopathy Bilateral hand pain Bilateral hand numbness Disturbance of skin sensation Lumbar spondylosis Lumbosacral spondylosis without myelopathy Cervical spondylosis Cervical spondylosis without myelopathy Chronic midline low back pain without sciatica History of lumbar surgery Anxiety Anxiety state, unspecified [facility]* Diagnosis Lumbar radiculopathy, chronic [facility]* Diagnosis Trochanteric bursitis of right hip- Primary [facility]* Diagnosis Acute right-sided low back pain with right-sided sciatica- Primary documented in this encounter [facility] note* Diagnosis Radicular syndrome of right leg- Primary Thoracic or lumbosacral neuritis or radiculitis, unspecified History of lumbar laminectomy Diabetic peripheral neuropathy (HCC) Type II or unspecified type diabetes mellitus with neurological manifestations, not stated as uncontrolled History of total right hip replacement Thrombocytopenia Thrombocytopenia, unspecified [facility]* Diagnosis Malignant neoplasm of colon, unspecified part of colon (HCC)- Primary Thrombocytopenia Thrombocytopenia, unspecified documented in this encounter [facility] note* Diagnosis Radicular syndrome of [...] stated as uncontrolled documented in this encounter [facility] note* Diagnosis Benign prostatic hyperplasia, unspecified whether lower urinary tract symptoms present- Primary Difficulty urinating Other symptoms involving urinary system [facility]* Diagnosis Onset Date Resolution Status Admit Date Cirrhosis acute December 05 1:16pm Esophageal varices acute December 05, 2024 1:16pm GERD (gastroesophageal reflu x disease) acute December 05, 2024 1:16pm Hepatic encephalopathy acute Ap 2024 1:16pm Irritable bowel syndrome wit h diarrhea acute December 05, 2024 1:16pm Personal history of colon cancer acu te December 05, 2024 1:16pm [facility] Work Phone: Evaluation note* Diagnosis Radiculopathy, lumbar region- Primary Thoracic or lumbosacral neuritis or radiculitis, unspecified Diabetic peripheral neuropathy (HCC) Type II or unspecified type diabetes mellitus with neurological manifestations, not stated as uncontrolled Thrombocytopenia Thrombocytopenia, unspecified History of total right hip replacement H/O lumbar discectomy Personal history of surgery to other organs Chronic pain syndrome [facility] Diagnosis Benign prostatic hyperplasia, unspecified whether lower urinary tract symptoms present- Primary Difficulty urinating Other symptoms involving urinary system Difficulty urinating- Primary Other symptoms involving urinary system Preop examination- Primary Unspecified pre-operative examination Hypertension, unspecified type Type 2 diabetes mellitus with other circulatory complication, with long-term current use of insulin ([facility]) Preop examination Unspecified pre-operative examination Hypertension, unspecified type Type 2 diabetes mellitus with other circulatory complication, with long-term current use of insulin ([facility]) Difficulty urinating Other symptoms involving urinary system [facility] Diagnosis Thrombocytopenia- Primary Thrombocytopenia, unspecified Malignant neoplasm of colon, unspecified part of colon (HCC) Elevated carcinoembryonic antigen (CEA) Elevated carcinoembryonic antigen [CEA] documented in this [facility]* Diagnosis Radiculopathy, lumbar region Thoracic or lumbosacral neuritis or radiculitis, unspecified Diabetic peripheral neuropathy (HCC) Type II or unspecified type diabetes mellitus with neurological manifestations, not stated as uncontrolled Thrombocytopenia Thrombocytopenia, unspecified History of total right hip replacement H/O lumbar discectomy Personal history of surgery to other organs Polyneuropathy Unspecified hereditary and idiopathic peripheral neuropathy documented in this encounter [facility] general Narrative - Reported* Type Description Date [...] Morrison 06/14/19 Hospitalization History See Sx Hx [employer] Other [facility] general Narrative - [employer]orted[employer] Other Hisjdld general Narrative - Reported* Type Description Date [...] hernia repair Hospitalization History See Sx Hx [employer] Other Hospital Discharge instructions Additional Instructions DISCHARGE [...] problems. -Follow up with PCP. -Office number [phone].[facility] Work Phone: Hospital Discharge instructionsAmbulatory Orders* Referral to Orthopedic Surgery Location: None Selected [facility] Work Phone: InstructionsNot on filedocumented in this [...] be sent through Care Everywhere. * Cystoscopy (Ukrainian) [facility] for visit NarrativeONE WEEK FOLLOW UP AFTER PROCEDURE, Patient consents to be evaluated and treated via telemedicine, risks benefits and alternatives explained., Patient at home virtually seen from office.[employer] Other Reason for visit Narrative* Other Medical (Routine) - Closed Specialty Diagnoses / Procedures Referred By Contac t Referred To Contact Neurology Diagnoses Radiculopathy, cervical region Pain in right hand Pain in left hand Anesthesia of skin Spondylosis without myelopathy or radiculopathy, cervical region Procedures ME NEEDLE EMG EA EXTREMTY W/PARASPINL AREA COMPLETE ME NERVE CONDUCTION STUDIES 9-10 STUDIES Marcell Badillo MD [address] [place] [address] Phone: tel: fax: Virgil Ashford MD [address] [place] [address] Phone: tel: fax: Referral ID Status Reason Start Date Expiration Date V isits Requested Visits Authorized [id number] Closed Perform Procedure 07/19/2024 01/15/2025 1 1 [facility] Healthcare Summary Purpose Family History No Family [...] Time Advance Directives Yes November 30, 024 10:37am Date Activated Date Inactivated Comments [...] Documents on File Type Date Recorded Patient Program Manager Slp Expl anation Advance Directive(s) 04/06/2018 2:06 PM Documents on File Type Date Recorded Patient Program Manager Slp Expl anation Advance Directive(s) 04/06/2018 2:06 PM [...] 1:16pm Irritable bowel syndrome with diarrhea A pril 2024 1:16pm Personal history of colon cancer [...] at C5-C6 level Chief Complaint Ref diane mcgrath, C5 -C6 dics disorder w myelopathy 6 [...] INJECTION BLOCK SACROILIAC JOINT RIGHT Eddie Torre, SENIOR MANAGING DIRECTOR-DYNAMICS AX SOLUTION ARCHITECT [address] [place] [address] Referral ID Status Reason Start Date Expiration Date V isits Requested Visits Authorized [id number] Pending Review 04/02/2024 04/02/2025 1 1 Specialty Diagnoses / Procedures Referred By Contac t Referred To Contact Rehabilitation Diagnoses Closed displaced intertrochanteric fracture of right femur with routine healing, subsequent encounter Rehana Retana PA-C [address] [place] [address] Referral ID Status Reason Start Date Expiration Date Visits Requested Visits Authorized [id number] Pending Review Specialty Services Required 03/14/2024 09/14/2024 1 1 Specialty Diagnoses / Procedures Referred By Contac t Referred To Contact Diagnoses Localized swelling of right lower extremity Procedures Vas venous duplex lwr single right Tom Marquez PA-C [address] [place] [address] Referral ID Status Reason Start Date Expiration Date V isits Requested Visits Authorized [id number] Pending Review 02/22/2024 02/21/2025 1 1 Specialty Diagnoses / Procedures Referred By Contac t Referred To Contact Procedures Discharge Follow-Up Leatha Saldivar MD [address] [place] [address] Referral ID Status Reason Start Date Expiration Date V isits Requested Visits Authorized [id number] Pending Review 02/03/2024 02/02/2025 1 1 Specialty Diagnoses / Procedures Referred By Contac t Referred To Contact Procedures Adult diet Leatha Saldivar MD [address] [place] [address] Referral ID Status Reason Start Date Expiration Date V isits Requested Visits Authorized [id number] Pending Review 02/03/2024 02/02/2025 1 1 Specialty Diagnoses / Procedures Referred By Contac t Referred To Contact Diagnoses Periprosthetic fracture of hip, subsequent encounter Procedures Follow-up with primary care provider Leatha Saldivar MD [address] [place] [address] Referral ID Status Reason Start Date Expiration Date V isits Requested Visits Authorized [id number] Pending Review 02/03/2024 02/02/2025 1 1 Specialty Diagnoses / Procedures Referred By Contac t Referred To Contact Behavioral Health Diagnoses Periprosthetic fracture of hip, subsequent encounter Leatha Saldivar MD [address] [place] [address] Referral ID Status Reason Start Date Expiration Date Visits Requested Visits Authorized [id number] Pending Review Specialty Services Required 02/03/2024 02/02/2025 1 1 Specialty Diagnoses / Procedures Referred By Contac t Referred To Contact Occupational Therapy Diagnoses Periprosthetic fracture of hip, subsequent encounter Leatha Saldivar MD [address] [place] [address] Referral ID Status Reason Start Date Expiration Date Visits Requested Visits Authorized [id number] Pending Review Specialty Services Required 02/03/2024 08/04/2024 12 12 Specialty Diagnoses / Procedures Referred By Contac t Referred To Contact Rehabilitation Diagnoses Periprosthetic fracture of hip, subsequent encounter Leatha Saldivar MD [address] [place] [address] Referral ID Status Reason Start Date Expiration Date Visits Requested Visits Authorized [id number] Pending Review Specialty Services Required 02/03/2024 08/04/2024 12 12 Specialty Diagnoses / Procedures Referred By Contac t Referred To Contact Diagnoses Closed fracture of right hip, initial encounter ([facility]) Periprosthetic fracture of hip, sequela Procedures Follow-up with primary care provider Leatha Saldivar MD [address] [place] [address] Referral ID Status Reason Start Date Expiration Date V isits Requested Visits Authorized [id number] Pending Review 02/02/2024 02/01/2025 1 1 Specialty Diagnoses / Procedures Referred By Contac t Referred To Contact Procedures Discharge Follow-Up Abad Diallo DO [address] [place] [address] Referral ID Status Reason Start Date Expiration Date V isits Requested Visits Authorized [id number] Pending Review 01/22/2024 01/21/2025 1 1 Specialty Diagnoses / Procedures Referred By Contac t Referred To Contact Diagnoses Closed fracture of right hip, initial encounter ([facility]) Procedures Follow-up with primary care provider Abad Diallo DO [address] [place] [address] Referral ID Status Reason Start Date Expiration Date V isits Requested Visits Authorized [id number] Pending Review 01/22/2024 01/21/2025 1 1 Reason Evaluate and Treat Diagnosis 1 Idiopathic periphera l neuropathy (G60.9) Referral Organization [facility] uros[facility]gery Referring Provider First Name Bird Referring Provider Last Name Yany Referring Provider Specialty Neurosurger y Referred Organization [facility] Referred Provider Erick Naylor Referred Address [address] [place] [id number] Referred Provider Specialty Neurology Referral Priority Routine Reason BLE EMG Diagnosis 1 Idiopathic periphera l neuropathy (G60.9) Referral Organization [facility] Referring Provider First Name Bird Referring Provider Last Name Yany Referring Provider Specialty Neurosurger y Referred Organization [facility] Referred Provider Virgil Ashford Referred Address [address] [address] [place],[address] Referred Provider Specialty Neurology Referral Priority Routine General Notes GutierrezMonica mishra 01:13:32 PM >received today, made attachments, waiting [...] section and content) DATE CREATED AUTHOR 03/14/2018 [facility] DATE CREATED AUTHOR AUTHOR'S ORGANIZ ATION 05/29/2018 [facility] DATE CREATED AUTHOR AUTHOR'S ORGANIZ ATION 05/20/2020 [facility] DATE CREATED AUTHOR AUTHOR'S ORGANIZ ATION 02/05/2021 [facility] DATE CREATED AUTHOR AUTHOR'S ORGANIZ ATION 07/28/2024 [facility] DATE CREATED AUTHOR AUTHOR'S ORGANIZ ATION 08/07/2024 [facility] DATE CREATED AUTHOR AUTHOR'S ORGANIZ ATION 11/09/2024 [facility] DATE CREATED AUTHOR AUTHOR'S ORGANIZ ATION 12/05/2024 [facility] DATE CREATED AUTHOR AUTHOR'S ORGANIZ ATION 01/11/2025 [facility] DATE CREATED AUTHOR AUTHOR'S ORGANIZ ATION 02/01/2025 [facility] DATE CREATED AUTHOR AUTHOR'S ORGANIZ ATION 02/24/2025 [facility] DATE CREATED AUTHOR AUTHOR'S ORGANIZ ATION 02/26/2025 [facility] REASON FOR VISIT (unrecogniz ed section and [...] Closed fracture of right hip, initial encounter ([facility]) Jeff Martin MD [address] [facility] [place] [address] Referral ID Status Reason Start Date Expiration Date Visits Re quested Visits Authorized [id number] 1 1 Reason Comments Post-op S/p TFNA Right IT Hi p Fx,S/p fall has new fx around nail, r femur fall Post-op Reason Comments Fall Evaluation of Abnormal Diagnostic Test Specialty Diagnoses / Procedures Referred By Contac t Referred To Contact Diagnoses Closed fracture of right hip, initial encounter ([facility]) Leatha Saldivar MD [address] [place] [address] Referral ID Status Reason Start Date Expiration Date Visits Re quested Visits Authorized [id number] 1 1 Reason Comments Med Refill Reason [...] NEW HIGH MDM 60 MINUTES Martha Faulkner, JOHN.DYNAMICS AX SOLUTION ARCHITECT [address] [place] [address] Phone: tel: fax: Referral ID Status Reason Start Date Expiration Date V isits Requested Visits Authorized [id number] Closed PCP Requested Referral 11/08/2024 02/06/2025 1 1 Reason Comments Colon Cancer Specialty Diagnoses / Procedures Referred By Contac t Referred To Contact Hematology Diagnoses Thrombocytopenia Procedures CONSULT TO HEMATOLOGY OFFICE/OUTPATIENT [facility] 60 MINUTES Abrahan Rinaldi MD [address] [place] [address] Phone: tel: fax: Referral ID Status Reason Start Date Expiration Date V isits Requested Visits Authorized [id number] Closed PCP Requested Referral 11/22/2024 11/22/2025 1 1 Reason Comments Schedule Injection Reason Comments Difficulty Urinating Specialty Diagnoses / Procedures Referred By Contac t Referred To Contact Urology Diagnoses Difficulty urinating Francisca Wade MD [address] [place] [address] Phone: tel: fax: [facility] [address] [place] [address] Phone: tel: fax: Referral ID Status Reason Start Date Expiration Date Visits Requested Visits Authorized [id number] Pending Review Specialty Services Required 10/11/2024 10/11/2025 1 1 Reason Comments Pain Procedure Response & follow up Righ t L5-S1 Transforaminal Epidural Steroid injection # 1 Reason Comments Back Pain Down right leg Reason Comments Pain Low back Care Teams (unrecognized sec tion and content) [...] Team Status: Inactive Member Role Status Dates LISA HealyC Primary Care Provider Activ e Start: June 05, 2024 End: June 05, 2024 Guillermo Thornton MD Attending Provider Active S tart: June 05, 2024 End: June 05, 2024 Maintenance Worker House Trailer Relationship Specialty Start Date End Date Unallocated, Diana Matos MD [address] [place] [address] PCP - General Family Medicine 12/12/23 Diane Mcgrath NP [address] [place] [address] Referring Physician Family Medicine 12/12/23 Marcell Badillo MD [address] [place] [address] Referring Physician Family Medicine 07/19/24 Maintenance Worker House Trailer Relationship Specialty Start Date End Date Unallocated, Diana Matos MD [address] [place] [address] PCP - General Family Medicine 12/12/23 Diane Mcgrath NP [address] [place] [address] Referring Physician Family Medicine 12/12/23 Marcell Badillo MD [address] [place] [address] Referring Physician Family Medicine 07/19/24 Maintenance Worker House Trailer Relationship Specialty Start Date End Date Francisca Wade MD [address] [place] [address] PCP - General Internal Medicine 07/18/24 Maintenance Worker House Trailer Relationship Specialty Start Date End Date Francisca Wade MD [address] [place] [address] PCP - General Internal Medicine 07/18/24 Team Status: Active Member Role Status Dates Francisca Wade MD Primary Care Provider Active Team Status: Inactive Member Role Status Dates Marcell Badillo NP-C Attending Provider Active S tart: August 27, 2024 End: August 27, 2024 Francisca Wade MD Primary Care Provider Active S tart: August 27, 2024 End: August 27, 2024 Maintenance Worker House Trailer Relationship Specialty Start Date End Date Francisca Wade MD [address] [place] [address] PCP - General Internal Medicine 07/18/24 Maintenance Worker House Trailer Relationship Specialty Start Date End Date Francisca Wade MD [address] [place] [address] PCP - General Internal Medicine 07/18/24 Maintenance Worker House Trailer Relationship Specialty Start Date End Date Francisca Wade MD [address] [place] [address] PCP - General Internal Medicine 07/18/24 Maintenance Worker House Trailer Relationship Specialty Start Date End Date Jd Du PA-C [address] [place] [address] PCP - General Physician Supervisor Mold Construction 07/31/17 Maintenance Worker House Trailer Relationship Specialty Start Date End Date Jd Du PA-C [address] [place] [address] PCP - General Physician Supervisor [employer] 07/31/17 Maintenance Worker House Trailer Relationship Specialty Start Date End Date Jd Du PA-C [address] [place] [address] PCP - General Physician Supervisor [employer] 07/31/17 Maintenance Worker House Trailer Relationship Specialty Start Date End Date Jd Du PA-C [address] [place] [address] PCP - General Physician Supervisor [employer] 07/31/17 Maintenance Worker House Trailer Relationship Specialty Start Date End Date Jd Du PA-C [address] [place], [place] [address] PCP - General Physician Supervisor [employer] 07/31/17 Maintenance Worker House Trailer Relationship Specialty Start Date End Date Jd Du PA-C [address] [place], [place] [id number] PCP - General Physician Supervisor [employer] 07/31/17 Maintenance Worker House Trailer Relationship Specialty Start Date End Date Jd Du PA-C [address] [place] [address] PCP - General Physician Supervisor [employer] 07/31/17 Maintenance Worker House Trailer Relationship Specialty Start Date End Date Jd Du PA-C [address] [place] [address] PCP - General Physician Supervisor [employer] 07/31/17 Maintenance Worker House Trailer Relationship Specialty Start Date End Date Jd Du PA-C [address] [place] [address] PCP - General Physician Supervisor [employer] 07/31/17 Maintenance Worker House Trailer Relationship Specialty Start Date End Date Diane Mcgrath APRN-CLINICAL DOCUMENTATION IMPROVEMENT SPECIALIST [address] [place] [address] PCP - General 03/14/24 Maintenance Worker House Trailer Relationship Specialty Start Date End Date Diane Mcgrath APRN-CLINICAL DOCUMENTATION IMPROVEMENT SPECIALIST [address] [place] [address] PCP - General 03/14/24 Maintenance Worker House Trailer Relationship Specialty Start Date End Date Diane Mcgrath APRN-CLINICAL DOCUMENTATION IMPROVEMENT SPECIALIST [address] [place] [address] PCP - General 03/14/24 Maintenance Worker House Trailer Relationship Specialty Start Date End Date Diane Mcgrath APRN-CLINICAL DOCUMENTATION IMPROVEMENT SPECIALIST [address] [place] [address] PCP - General 03/14/24 Maintenance Worker House Trailer Relationship Specialty Start Date End Date Diaen Mcgrath APRN-CLINICAL DOCUMENTATION IMPROVEMENT SPECIALIST [address] [place] [address] PCP - General 03/14/24 Maintenance Worker House Trailer Relationship Specialty Start Date End Date Diane Mcgrath SENIOR MANAGING DIRECTOR-[facility] [address] [place] [place] [address] PCP - General Family Medicine 06/07/24 Maintenance Worker House Trailer Relationship Specialty Start Date End Date Diane Mcgrath SENIOR MANAGING DIRECTOR-[facility] [address] [place] [place] [address] PCP - General Family Medicine 06/07/24 Maintenance Worker House Trailer Relationship Specialty Start Date End Date Francisca Wade MD [address] [place] [place] [address] PCP - General Internal Medicine 07/18/24 Maintenance Worker House Trailer Relationship Specialty Start Date End Date Francisca Wade MD [address] [place] [place] [address] PCP - General Internal Medicine 07/18/24 Maintenance Worker House Trailer Relationship Specialty Start Date End Date Francisca Wade MD [address] [place] [address] PCP - General Internal Medicine 07/18/24 Maintenance Worker House Trailer Relationship Specialty Start Date End Date Jd Du PA-C [address] [place] [address] [place] [address] PCP - General Internal Medicine 04/09/18 Jun Arriola DO Physician Hematology 03/26/18 Lorie Ozuna, ELIAS [address] [place] [address] Career Guidance Counselor 03/26/18 Gianna Hodge, JOHN.DYNAMICS AX SOLUTION ARCHITECT [address] [facility] [place] [address] Nurse Practitioner Hematology/Oncology 03/26/18 Maintenance Worker House Trailer Relationship Specialty Start Date End Date Jd Du PA-C [address] [facility] [place] [address] PCP - General Internal Medicine 04/09/18 Jun Arriola DO Physician Hematology 03/26/18 Lorie Ozuna RN [address] [place] [address] Career Guidance Counselor 03/26/18 Gianna Hodge, SENIOR MANAGING DIRECTOR.DYNAMICS AX SOLUTION ARCHITECT [address] [place] [address] Nurse Practitioner Hematology/Oncology 03/26/18 Maintenance Worker House Trailer Relationship Specialty Start Date End Date Jd Du PA-C [address] [facility] [place] [address] PCP - General Internal Medicine 04/09/18 Jun Arriola DO Physician Hematology 03/26/18 Lorie Ozuna, ELIAS [address] [place] [address] Career Guidance Counselor 03/26/18 Gianna Hodge, JOHN.DYNAMICS AX SOLUTION ARCHITECT [address] [place] [address] Nurse Practitioner Hematology/Oncology 03/26/18 Maintenance Worker House Trailer Relationship Specialty Start Date End Date Jd Du PA-C [address] [place] [address] PCP - General Internal Medicine 04/09/18 Jun Arriola DO Physician Hematology 03/26/18 Lorie Ozuna RN [address] [place] [address] Career Guidance Counselor 03/26/18 Gianna Hodge, JOHN.DYNAMICS AX SOLUTION ARCHITECT [address] [facility] [place] [address] Nurse Practitioner Hematology/Oncology 03/26/18 Maintenance Worker House Trailer Relationship Specialty Start Date End Date Jd Du PA-C [address] [place] [address] PCP - General Internal Medicine 04/09/18 Jun Arriola DO Physician Hematology 03/26/18 Lorie Ozuna RN [address] [facility] [place] [address] Career Guidance Counselor 03/26/18 Gianna Hodge, SENIOR MANAGING DIRECTOR.DYNAMICS AX SOLUTION ARCHITECT [address] [place] [address] Nurse Practitioner Hematology/Oncology 03/26/18 Maintenance Worker House Trailer Relationship Specialty Start Date End Date Jd Du PA-C [address] [place] [address] PCP - General Internal Medicine 04/09/18 Jun Arriola DO Physician Hematology 03/26/18 Lorie Ozuna, ELIAS [address] [place] [address] [place] [address] Career Guidance Counselor 03/26/18 Gianna Hodge APRN.DYNAMICS AX SOLUTION ARCHITECT [address] [place] [address] [place] [address] Nurse Practitioner Hematology/Oncology 03/26/18 Maintenance Worker House Trailer Relationship Specialty Start Date End Date Francisca Wade MD [address] [place] [place] [address] PCP - General Internal Medicine 07/18/24 Team [...] December 12, 2024 End: December 12, 2024 Maintenance Worker House Trailer Relationship Specialty Start Date End Date Francisca Wade MD [address] [place] [place], [place] [address] PCP - General Internal Medicine 12/16/24 Jun Arriola DO Physician Hematology 03/26/18 Lorie Ozuna RN [address] [facility] [place] [address] Career Guidance Counselor 03/26/18 Gianna Hodge, JOHN.DYNAMICS AX SOLUTION ARCHITECT [address] [facility] [place] [address] Nurse Practitioner Hematology/Oncology 03/26/18 Maintenance Worker House Trailer Relationship Specialty Start Date End Date Francisca Wade MD [address] [place] [address] PCP - General Internal Medicine 12/16/24 Jun Arriola DO Physician Hematology 03/26/18 Lorie Ozuna RN [address] [facility] [place] [address] Career Guidance Counselor 03/26/18 Gianna Hodge, SENIOR MANAGING DIRECTOR.DYNAMICS AX SOLUTION ARCHITECT [address] [facility] [place] [address] Nurse Practitioner Hematology/Oncology 03/26/18 Maintenance Worker House Trailer Relationship Specialty Start Date End Date Francisca Wade MD [address] [place] [address] PCP - General Internal Medicine 12/16/24 Jun Arriola DO Physician Hematology 03/26/18 Lorie Ozuna, ELIAS [address] [facility] [place] [address] Career Guidance Counselor 03/26/18 Gianna Hodge, SENIOR MANAGING DIRECTOR.DYNAMICS AX SOLUTION ARCHITECT [address] [place] [address] Nurse Practitioner Hematology/Oncology 03/26/18 Maintenance Worker House Trailer Relationship Specialty Start Date End Date Francisca Wade MD [address] [place] [address] PCP - General Internal Medicine 07/18/24 Maintenance Worker House Trailer Relationship Specialty Start Date End Date Francisca Wade MD [address] [place] [place] [address] PCP - General Internal Medicine 07/18/24 Maintenance Worker House Trailer Relationship Specialty Start Date End Date Francisca Wade MD [address] [place], [place] [id number] PCP - General Internal Medicine 12/16/24 Jun Arriola DO Physician Hematology 03/26/18 Lorie Ozuna RN [address] [place] [address] Career Guidance Counselor 03/26/18 Gianna Hodge APRN.DYNAMICS AX SOLUTION ARCHITECT [address] [place] [address] Nurse Practitioner Hematology/Oncology 03/26/18 Maintenance Worker House Trailer Relationship Specialty Start Date End Date Francisca Wade MD [address] [place] [place] [address] PCP - General Internal Medicine 12/16/24 Jun Arriola DO Physician Hematology 03/26/18 Lorie Ozuna RN [address] [place] [address] Career Guidance Counselor 03/26/18 Gianna Hodge APRN.DYNAMICS AX SOLUTION ARCHITECT [address] [place] [address] Nurse Practitioner Hematology/Oncology 03/26/18 Maintenance Worker House Trailer Relationship Specialty Start Date End Date Francisca Wade MD [address] [place] [place] [address] PCP - General Internal Medicine 12/16/24 Jun Arriola DO Physician Hematology 03/26/18 Lorie Ozuna RN [address] [place] [address] Career Guidance Counselor 03/26/18 Gianna Hodge, JOHN.DYNAMICS AX SOLUTION ARCHITECT [address] [place] [address] Nurse Practitioner Hematology/Oncology 03/26/18 Goals (unrecognized section [...] Santi Parks RN)1135 (Given - Provider: Miranda Dudley RN)1740 (Given - Provider: Miranda Dudley RN) calcium citrate (CALCITRATE) tablet 400 mg 400 mg, oral, 3 times daily with meals, First dose on Mon01/18/24 at 1345 0904 (Given - Provider: George Ha RN)1135 (Given - Provider: George Ha RN)1604 (Given - Provider: George Ha RN) 0924 (Given - Provider: Chloe Vela RN)1205 (Given - Provider: Chloe Vela RN)1757 (Given - Provider: Chloe Vela RN) 0835 (Given - Provider: Miranda Dudley, ELIAS)1134 (Given - Provider: Miranda Dudley RN)1717 (Given [...] RN)2155 (Given - Provider: Virgil Gonzalez RN) 0925 (Given - Provider: Chloe Vela, ELIAS)1205 (Given - Provider: Chloe Vela, ELIAS)1757 (Given - Provider: Chloe Vela, ELIAS)2215 (Given - Provider: Santi Parks RN) 0836 (Given - Provider: Miranda Dudley, ELIAS)1355 (Given - Provider: Miranda Dudley, ELIAS)1717 (Given - Provider: Miranda Dudley RN) insulin [...] parameters not met)1250 (Given - Provider: George Ha RN)1700 (Not Given - Provider: George Ha RN - Reason: Order parameters not met) 0800 (Not Given - Provider: Chloe Vela RN - Reason: Order parameters not met)1207 (Given - Provider: Chloe Vela RN)1757 (Given - Provider: Chloe Vela RN) 0800 (Not Given - Provider: Miranda Dudley RN - Reason: Order parameters not met - Comment: [id number])1321 (Not Given - Provider: Miranda Dudley RN - Reason: Order parameters not met - Comment: [id number])1700 (Not Given - Provider: Miranda Dudley RN - Reason: Order parameters not met - Comment: FN=[phone]) lidocaine (LIDODERM) 5 % 1 patch 1 patch, transdermal, Administer over 12 Hours, Daily, First dose on Mon01/17/24 at 2000, Apply to intact skin at site of low back pain. Patch(es) may remain in place for up to 12 hours in any 24-hour period. Remove previous patch, if present, before applying new. 0932 (Medication Removed - Provider: George Ha RN)2000 (Hold - Provider: Virgil Gonzalez RN - [...] applying new. 0829 (Medication Removed - Provider: George Ha RN)0906 (Medication Applied - Provider: George [...] Provider: Chloe Vela RN)2108 (Given - Provider: Santi Parks RN) 0836 (Given - Provider: Miranda uDdley, ELIAS) sennosides-docusate sodium (SENOKOT-S) 8.6-50 mg 2 tablet 2 tablet, oral, 2 times daily, First dose on Mon01/17/24 at 2100 0905 (Given - Provider: George Ha RN)2099 (Not Given - Provider: Virgil Gonzalez RN - Reason: Patient/family refused) 0900 (Not Given - Provider: Chloe Vela RN - Reason: Patient/family refused)2099 (Not Given - Provider: Santi Parks RN - Reason: Patient/family refused) 09[facility] ([facility] Provider: Miranda Dudley RN) tamsulosin (FLOMAX) [...] Look-alike/sound-alike medication - verify indication for use. 0338 (Given - Provider: Virgil Gonzalez RN)0813 (Given - Provider: George Ha RN)1133 (Given - Provider: George Ha RN)1408 (Given - Provider: George Ha RN)1731 (Given - Provider: George Ha RN)2124 (Given - Provider: Virgil Gonzalez RN) 0028 (Given - Provider: Virgil Gonzalez RN)0354 (Given - Provider: Virgil Gonzalez RN)0750 (Given - Provider: Chloe Vela RN)1008 (Given - Provider: Chloe Vela RN)1418 (Given - Provider: Chloe Vela RN)1805 (Given - Provider: Chloe Vela RN)2101 (Given - Provider: Santi Parks RN) 0050 (Given - Provider: Santi Parks, ELIAS)0539 (Given - Provider: Santi Parks RN) ibuprofen [...] Virgil Gonzalez RN)2221 (Paused - Provider: Chloe Vela RN)2225 (Restarted - Provider: Chloe Vela RN) [...] Virgil Gonzalez RN)0923 (Given - Provider: Chloe Vela RN)1204 (Given - Provider: Chloe Vela, ELIAS)1534 (Given - Provider: Chloe Vela, ELIAS)2220 (Given - Provider: Santi Parks RN) 0232 (Given - Provider: Santi Parks RN)0752 (Given - Provider: Miranda Dudley, RN)1135 (Given - Provider: Miranda Dudley, RN)1447 (Given - Provider: Miranda Dudley, RN)1740 (Given - Provider: Miranda Dudley, ELIAS) oxyCODONE (ROXICODONE) immediate release tablet 5 mg [...] if patient unable to take medications orally. 1752 (Given - Provider: Santi Parks RN)1140 (Given - Provider: Antionette Smith RN)2014 (Given - Provider: Lacey Singer, ELIAS) 0222 (Given - Provider: Lacey Singer RN)0400 (Not Given - Provider: Lacey [...] Smith RN) 0839 (Given - Provider: Lian Silva, ELIAS) 0821 (Given - Provider: Lian Silva, ELIAS) citalopram (CeleXA) tablet 20 mg 20 mg, [...] Singer RN) 0520 (Given - Provider: Lacey Singer, ELIAS)1444 (Given - Provider: Lian Silva RN)2122 (Given - Provider: Carin Contreras RN) 0516 (Given - Provider: Carin Contreras RN)1357 [...] Antionette Smith RN)1309 (Given - Provider: Antionette Smith RN)1612 (Given - Provider: Antionette Smith RN)2016 (Given - Provider: Lacey Singer RN) 0841 (Given - Provider: Lian Silva RN)1224 (Given - Provider: Lian Silva RN)1615 (Given - Provider: Lian Silva RN)2122 (Given - Provider: Carin Contreras RN) 0820 (Given - Provider: Lian Silva RN)1231 (Given - Provider: Lian Silva [...] times daily with meals, First dose on 02/03/24 at 1200, Daytime hyperglycemia dosing. For blood [...] Smith RN) 0800 (Not Given - Provider: Lian Silva RN - Reason: Order parameters not met)1226 (Given - Provider: Lian Silva RN)1700 (Not Given - Provider: Lian iSlva RN - Reason: Order parameters not met) [...] RN) 2300 (Not Given - Provider: Carin Contreras RN - Reason: Patient/family refused) 2300 (Due - Provider: Bertha Avalos [facility]) magnesium oxide (MAGOX) tablet 400 mg 400 mg, oral, Daily, First dose on Mon01/29/24 at 1200 0805 (Given - Provider: Antionette Smith RN) 0841 (Given - Provider: Lian Silva, ELIAS) 0822 (Given - Provider: Lian Silva RN) pantoprazole [...] Antionette Smith RN)2015 (Given - Provider: Lacey Singer, ELIAS) 0900 (Hold - Provider: Lian Silva, ELIAS - Reason: Medication not available)1219 (Given - Provider: Lian Silva, ELIAS)2121 (Given - Provider: Carin Contreras, ELIAS) 08 (Given - Provider: Lian Silva, ELIAS)2100 (Due) sennosides-docusate sodium (SENOKOT-S) 8.6-50 mg 2 [...] Antionette Smith RN)1309 (Given - Provider: Antionette Smith RN)161 (Given - Provider: Antionette Smith RN)2014 [...] use. 0037 (Given - Provider: Santi Parks RN - Comment: Per pt request)2015 (Given - Provider: Lacey Singer RN) 103 (Given - Provider: Carin Contreras RN - Comment: per patient)2199 (Due) PRN Medication Order 02/01/2024 02/02/2024 02/03/2024 cyclobenzaprine (FLEXERIL) tablet 10 mg 10 mg, oral, 2 times daily PRN, muscle spasms, Starting on Mon01/29/24 at 1151 0037 (Given - Provider: Santi Parks RN) 0836 (Given - Provider: Lian Silva RN)2122 (Given - Provider: Carin Contreras RN) 1228 [facility]: Lian Silva RN - Comment: [...] or prosecute any alcohol or drug abuse patient.[facility] the event this information is protected by the Federal Confidentiality of Alcohol and Drug Abuse Patient Records regulations: The Federal rules restrict any use of the information to criminally investigate or prosecute any alcohol or drug abuse patient.[facility] Hospital[facility] the event this information is protected by the Federal Confidentiality of Alcohol and Drug Abuse Patient Records regulations: The Federal rules restrict any use of the information to criminally investigate or prosecute any alcohol or drug abuse patient.[facility] Hospital[facility] the event this information is protected by the Federal Confidentiality of Alcohol and Drug Abuse Patient Records regulations: The Federal rules restrict any use of the information to criminally investigate or prosecute any alcohol or drug abuse patient.[facility] Hospital[facility] the event this information is protected by the Federal Confidentiality of Alcohol and Drug Abuse Patient Records regulations: The Federal rules restrict any use of the information to criminally investigate or prosecute any alcohol or drug abuse patient.[facility] Hospital[facility] the event this information is protected by the Federal Confidentiality of Alcohol and Drug Abuse Patient Records regulations: The Federal rules restrict any use of the information to criminally investigate or prosecute any alcohol or drug abuse patient.[facility] Hospital[facility] the event this information is protected by the Federal Confidentiality of Alcohol and Drug Abuse Patient Records regulations: The Federal rules restrict any use of the information to criminally investigate or prosecute any alcohol or drug abuse patient.[facility] HospitalIn the event this information is protected by the Federal Confidentiality of Alcohol and Drug Abuse Patient Records regulations: The Federal rules restrict any use of the information to criminally investigate or prosecute any alcohol or drug abuse patient.[facility] Hospital[facility] the event this information is protected by the Federal Confidentiality of Alcohol and Drug Abuse Patient Records regulations: The Federal rules restrict any use of the information to criminally investigate or prosecute any alcohol or drug abuse patient.[facility] Hospital[facility] the event this information is protected by the Federal Confidentiality of Alcohol and Drug Abuse Patient Records regulations: The Federal rules restrict any use of the information to criminally investigate or prosecute any alcohol or drug abuse patient.[facility] Hospital[facility] the event this information is protected by the Federal Confidentiality of Alcohol and Drug Abuse Patient Records regulations: The Federal rules restrict any use of the information to criminally investigate or prosecute any alcohol or drug abuse patient.[facility] HospitalIn the event this information is protected by the Federal Confidentiality of Alcohol and Drug Abuse Patient Records regulations: The Federal rules restrict any use of the information to criminally investigate or prosecute any alcohol or drug abuse patient.[facility] FOR RECORDS PERTAINING TO PATIENTS WHO [...] BE BASED ON THE PRIMARY CLINICAL RECORDS. [facility] [facility]. provides no warranty or guarantee of the accuracy or completeness of information in this document.
--- NOTE | 2025-03-08 13:29 | XR_ITS ---
The [address] [address] Patient Name: RUTH SMITH MRN: [id number] date: 1970 Sex: M Assigned Patient Location: ER Current Patient Location: ER Accession/Order Number: [id number] Exam Date: 03/08/2025 13:57 Report Date: 03/08/2025 13:57 At the request of: RUTH RUSSELL MD Procedure: XR chest 1V Single view chest: CLINICAL HISTORY: cough COMPARISON: Chest 05/13/2020 FINDINGS: The heart is normal in size. The lungs are clear. The pulmonary vasculature is normal. Mediastinum and hilar regions are unremarkable. No pleural effusions are seen. Visualized bones are intact. XR/XR chest 1V IMPRESSION: NEGATIVE CHEST. Impression dictated by: James Knowles Jr. DKelvinOKelvin 03/08/2025 1:57 PM Dictation Location: [place] [address] Electronically authenticated by: [id number] Y Date: 03/08/2025 13:57
--- NOTE | 2025-03-08 13:30 | ED.GENADUL1 ---
HPI HPI - General Adult General Chief complaint: Fall Stated complaint: FALL 03/04/2025; BACK AND R LEG PAIN Time Seen by Provider: 03/08/25 13:16 Source: patient and family Mode of arrival: walk-in Limitations: physical limitation History of Present Illness HPI narrative: 54-year-old male presents for right lower back pain that goes into his buttock. It started on Monday after he was trying to get up from the toilet and he slipped and went forward to his knees. He did not injure his knees and did not hit his head and he does not believe he hit his back. He is in chronic pain management at the [facility] for these back issues. No weakness or numbness in his leg Related Data Home Medications ?Medication ?Instructions ?Recorded ?Confirmed albuterol sulfate 90 mcg/actuation 2 inh inhalation Q6H PRN shortness 10/08/24 12/27/24 aerosol inhaler (Ventolin HFA) of breath or wheezing carvedilol 3.125 mg tablet 6.25 mg PO Q12H 10/08/24 12/27/24 citalopram 20 mg tablet 40 mg PO DAILY 10/08/24 12/27/24 colestipol 1 gram tablet 1 g PO DAILY 10/08/24 12/27/24 cyclobenzaprine 10 mg tablet 10 mg PO Q12H PRN spasms 10/08/24 12/27/24 eluxadoline 100 mg tablet (Viberzi) 100 mg PO BID 10/08/24 12/27/24 fenofibrate 160 mg tablet 160 mg PO DAILY 10/08/24 12/27/24 hydrochlorothiazide 25 mg tablet 25 mg PO DAILY 10/08/24 12/27/24 hyoscyamine sulfate 0.125 mg tablet 0.125 mg PO Q6H 10/08/24 12/27/24 insulin aspart 1 sliding scale dose subcut 10/08/24 12/27/24 (niacinamide)(U-100) 100 unit/mL(3 USEASDIRECTD mL) subcutaneous pen (Fiasp FlexTouch U-100 Insulin) insulin degludec 100 unit/mL (3 20 unit subcut DAILY 10/08/24 12/27/24 mL) subcutaneous pen (Tresiba FlexTouch U-100 insulin) linagliptin 2.5 mg-metformin 1,000 1 tab PO BID 10/08/24 12/27/24 mg tablet (Jentadueto) losartan 50 mg tablet 50 mg PO DAILY 10/08/24 12/27/24 magnesium oxide 400 mg (241.3 mg 400 mg PO DAILY 10/08/24 12/27/24 magnesium) tablet omeprazole 40 mg capsule,delayed 40 mg PO DAILY 10/08/24 12/27/24 release ondansetron 4 mg disintegrating 4 mg translingual Q8H PRN nausea 10/08/24 12/27/24 tablet and vomiting rifaximin 550 mg tablet (Xifaxan) 550 mg PO BID 10/08/24 12/27/24 semaglutide 0.25 mg or 0.5 mg (2 0.5 mg subcut QWEEK 10/08/24 12/27/24 mg/3 mL) subcutaneous pen injector (Ozempic) sucralfate 1 gram tablet 1 g PO Q6H 10/08/24 12/27/24 tamsulosin 0.4 mg capsule 0.4 mg PO Q24H 10/08/24 12/27/24 trazodone 50 mg tablet 50 mg PO DAILY 10/08/24 12/27/24 gabapentin 300 mg capsule 400 mg PO TID 12/27/24 12/27/24 Previous Rx's ?Medication ?Instructions ?Recorded oxycodone-acetaminophen 5 mg-325 1 tab PO Q6H PRN pain #20 tabs 03/08/25 mg tablet (Percocet) prednisone 10 mg tablet See Rx Instructions .Route 03/08/25 .COMPLEX #18 tabs Allergies Allergy/AdvReac Type Severity Reaction Status Date / Time clindamycin Allergy Nausea Verified 12/27/24 21:04 insulin glargine (From Allergy Nausea Verified 12/27/24 21:04 Basaglar KwikPen U-100 Insulin) Opioid HPI Opioid Management Most Recent Opioid Data: Last Pain Scale 9 12/27/24, 21:10 Review of Systems ROS Narrative A ten point review of systems is negative except as noted above. [facility] Medical History (Updated 03/08/25 @ 15:07 by Marcelino Díaz MD) Cirrhosis of liver ?K74.60 - Unspecified cirrhosis of liver (ICD-10) Pelvis fracture ?S32.9XXA - Fracture of unspecified parts of lumbosacral spine and pelvis, initial encounter for closed fracture (ICD-10) Femur fracture, right ?S72.91XA - Unspecified fracture of right femur, initial encounter for closed fracture (ICD-10) Diabetes ?E11.9 - Type 2 diabetes mellitus without complications (ICD-10) Social History Little interest or pleasure in doing things: not at all Feeling down, depressed, or hopeless: not at all Exam Narrative Exam Narrative: Nurses note and vital signs reviewed and patient is not hypoxic. General: The patient appears uncomfortable Skin: Warm, dry, no pallor noted. There is no rash noted. Head: Normocephalic, atraumatic Eye: Normal conjunctiva, no drainage Ears, Nose, Mouth, and Throat: oral mucosa is moist. Nares patent. Cardiovascular: Regular Rate and Rhythm Respiratory: Patient is in no distress, no accessory muscle use, lungs are clear to auscultation, no wheezing, rales or rhonchi Back: There is no bruise or rash or focal area of tenderness to palpation. Right hip has good range of motion. No swelling in his leg GI: Obese and nontender Musculoskeletal: The patient has no evidence of calf tenderness, no pitting edema, symmetrical pulses noted bilaterally Neurological: A&O, normal speech; motor strength intact in his lower extremities. Psychiatric: Cooperative Constitutional Vital Signs, click to edit/add: Last Vital Signs Temp 98 F 03/08/25 13:22 Pulse 82 03/08/25 14:34 Resp 20 03/08/25 14:34 BP 130/84 03/08/25 14:34 Pulse Ox 95 03/08/25 14:34 O2 Del Method Room Air 03/08/25 13:17 Course Vital Signs Vital signs: Vital Signs Pulse Rate 96 H 03/08/25 13:17 Respiratory Rate 22 H 03/08/25 13:17 Blood Pressure 161/100 H 03/08/25 13:17 Pulse Oximetry 99 03/08/25 13:17 Oxygen Delivery Method Room Air 03/08/25 13:17 Temperature 98 F 03/08/25 13:22 Pulse Rate 82 03/08/25 14:34 Respiratory Rate 20 03/08/25 14:34 Blood Pressure 130/84 03/08/25 14:34 Pulse Oximetry 95 03/08/25 14:34 Oxygen Delivery Method Room Air 03/08/25 13:17 Medical Decision Making MDM Narrative Medical decision making narrative: X-rays show no acute findings. He was given IM Toradol and then morphine and is now feeling much improved and is able to be discharged home. He is prescribed Percocet and prednisone and will keep a close eye on his blood sugars. He already has a muscle relaxer at home. He has a physician in [place] with whom he can follow-up. Treatment diagnosis and follow-up were discussed with the patient. Differential Diagnosis Differential Diagnosis: Chronic back pain, acute exacerbation of chronic back pain, compression fra Lab Data Lab results reviewed: Yes I reviewed the patient's lab results Labs: Lab Results 03/08/25 Range/Units 13:52 SARS-CoV-2 Ag (CV2AG) Negative (NEGATIVE) Imaging Data Chest x-ray: Radiologist's impression: ITS Impressions Chest X-Ray 03/08/25 13:29 IMPRESSION: NEGATIVE CHEST. Impression dictated by: James Knowles Jr., D.O. 03/08/2025 1:57 PM Dictation Location: [facility] Electronically authenticated by: [id number] Y Date: 03/08/2025 13:57 Lumbar Spine X-Ray 03/08/25 13:35 IMPRESSION: DEGENERATIVE CHANGES INVOLVING LUMBAR SPINE WITH MODERATE DISC SPACE NARROWING L2-L3 AND L5-S1. Impression dictated by: James Knowles Jr., D.O. 03/08/2025 2:16 PM Dictation Location: [facility] Electronically authenticated by: [id number] Y Date: 03/08/2025 14:16 Discharge Plan Discharge Chief Complaint: Fall Clinical Impression: Acute exacerbation of chronic low back pain Patient Disposition: Home, Self-Care Time of Disposition Decision: 15:06 Condition: Good Mode of Transportation: Private Vehicle Prescriptions / Home Meds: New prednisone 10 mg tablet See Rx Instructions .ROUTE .COMPLEX Qty: 18 0RF Rx Instructions: 3 by mouth daily for three days then 2 by mouth daily for three days then 1 by mouth daily for three days oxycodone-acetaminophen [Percocet] 5-325 mg tablet 1 tab PO Q6H PRN (Reason: pain) Qty: 20 0RF No Action gabapentin 300 mg capsule 400 mg PO TID albuterol sulfate [Ventolin HFA] 90 mcg/actuation HFA aerosol inhaler 2 inh inhalation Q6H PRN (Reason: shortness of breath or wheezing) carvedilol 3.125 mg tablet 6.25 mg PO Q12H citalopram 20 mg tablet 40 mg PO DAILY colestipol 1 gram tablet 1 g PO DAILY cyclobenzaprine 10 mg tablet 10 mg PO Q12H PRN (Reason: spasms) fenofibrate 160 mg tablet 160 mg PO DAILY Fiasp FlexTouch U-100 Insulin 100 unit/mL (3 mL) insulin pen 1 sliding scale dose subcut USEASDIRECTD hydrochlorothiazide 25 mg tablet 25 mg PO DAILY hyoscyamine sulfate 0.125 mg tablet 0.125 mg PO Q6H Jentadueto 2.5-1,000 mg tablet 1 tab PO BID losartan 50 mg tablet 50 mg PO DAILY magnesium oxide 400 mg (241.3 mg magnesium) tablet 400 mg PO DAILY omeprazole 40 mg capsule,delayed release(DR/EC) 40 mg PO DAILY ondansetron 4 mg tablet,disintegrating 4 mg translingual Q8H PRN (Reason: nausea and vomiting) Ozempic 0.25 mg or 0.5 mg (2 mg/3 mL) pen injector 0.5 mg SUBCUT QWEEK sucralfate 1 gram tablet 1 g PO Q6H tamsulosin 0.4 mg capsule 0.4 mg PO Q24H trazodone 50 mg tablet 50 mg PO DAILY insulin degludec [Tresiba FlexTouch U-100] 100 unit/mL (3 mL) insulin pen 20 unit subcut DAILY Viberzi 100 mg tablet 100 mg PO BID Rx Instructions: must administer with a meal/food Xifaxan 550 mg tablet 550 mg PO BID Print Language: Libyan Instructions: Acute Low Back Pain (ED) Referrals: Francisca Wade MD [Primary Care Provider] - 1 week
--- NOTE | 2025-03-08 13:32 | PC.NURSE ---
pt presents to be in a significant amount of pain. daughter is accompanying him. he's able to slowly walk back to room. states he fell in his bathroom on monday - legs gave out d/t getting numb. states he always has R lower back pain that goes down R leg for a long time. recently started seeing a [facility] pain management dr but does not have anything filled.
--- NOTE | 2025-03-08 13:35 | XR_ITS ---
The [place] [id number] Patient Name: RUTH SMITH MRN: [id number] date: 1970 Sex: M Assigned Patient Location: ER Current Patient Location: ER Accession/Order Number: [id number] Exam Date: 03/08/2025 14:16 Report Date: 03/08/2025 14:16 At the request of: RUTH RUSSELL MD Procedure: XR lumbar spine 2-3V LUMBAR SPINE - 3 views CLINICAL HISTORY: pain, slipped COMPARISON: None FINDINGS: Vertebral body heights appear maintained. Moderate disc space narrowing L2-L3 and L5-S1 with endplate and diffuse facet joint degenerative change. SI joints also demonstrate degenerative change. XR/XR lumbar spine 2-3V IMPRESSION: DEGENERATIVE CHANGES INVOLVING LUMBAR SPINE WITH MODERATE DISC SPACE NARROWING L2-L3 AND L5-S1. Impression dictated by: James Knowles Jr., DKelvinOKelvin 03/08/2025 2:16 PM Dictation Location: [employer] Electronically authenticated by: [id number] Y Date: 03/08/2025 14:16
[2025-03-08] MEDS: KETOROLAC TROMETHAMINE 60 MG/2 ML VIAL IM (13:44)
[2025-03-08] MEDS: ORPHENADRINE 60 MG/2 ML VIAL IM (13:45)
[2025-03-08 14:12] LABS: SARS-CoV-2 Ag NEGATIVE (NEGATIVE)
[2025-03-08 14:34] VITALS: BP 130/84; PULSE 82; O2SAT 95
[2025-03-08] MEDS: MORPHINE SULFATE 4 MG/ML VIAL 10 MG IM (14:45)
== END 2025-03-08 15:19 | disposition home or self-care (01) ==
PROVIDERS: Emergency Provider Emergency Medicine; PCP Internal Medicine
DX: M54.50 Low back pain, unspecified (principal); G89.29 Other chronic pain
CPT/HCPCS: 71045; 72100; 87811; 96372; 99284; J1885; J2270; J2360

== ENCOUNTER 2025-04-23 19:27 | Emergency (ER) | payer MEDICARE, MEDICAID, SELFPAY ==
--- OUTSIDE RECORDS SUMMARY | 2025-04-23 19:44 | XMS_ITS | CCD ---
Author Organization [facility] Care Team Providers Care Sack Lifter Name Role Phone DES FLORES Unavailable Unavailab le DES FLORES Unavailable Unavailab [facility] Admitting Unavailable [facility] Attending Unavailable ANSELMO GARCÍA Consulting Unavailable [facility] Consulting Unavailable Jd Du Primary Care Provider Jeff Mandel Attending Provider Jeff Mandel Unavailable Bird Slade Unavailable Asa Moeller Unavailable LUIS Du Primary Care Provider MD Asa Moeller Attending Provider [phone] Yung Figueroa Unavailable Sugar Knight Unavailable Guillermo Thornton Unavailable LUIS Du Primary Care Provider MD Asa Moeller Attending Provider Angelo Grande Unavailable LUIS Du Primary Care Provider MD Guillermo Thornton Attending Provider MD Jayleen Guaman Attending Provider LUIS Du Primary Care Provider MD Guillermo Thornton Attending Provider LUIS Du Primary Care Provider MD Guillermo Thornton Attending Provider [phone] JOHN Morel Jun Emergency Provider LUIS Du [...] Care Unavailable ANG FIGUEROA Referring Unavailable EUGENIO, TALLAPOOSA Primary Care Unavailable ANG FIGUEROA Attending Unavailable AYANNA, JD A Referring Unavailable EUGENIO, TALLAPOOSA Primary Care Unavailable REHANA RETANA Referring Unavailable EUGENIO, TALLAPOOSA Primary Care Unavailable TANK, ANG Attending Unavailable EUGENIO, DIANE Referring Unavailable EUGENIO, DIANE Primary Care Unavailable MARQUEZTOM N Referring Unavailable EUGENIO, DIANE Primary Care Unavailable TANK, ANG Referring Unavailable EUGENIO, DIANE Primary Care Unavailable TANK, ANG Attending Unavailable EUGENIO, DIANE Referring Unavailable EUGENIO, DIANE Primary Care Unavailable TANK, ANG Referring Unavailable MAURO, FRANCISCA Primary Care Unavailable TANK, ANG Attending Unavailable EUGENIO, DIANE Referring Unavailable MAURO, FRANCISCA Primary Care Unavailable Eugenio [employer], [place] Unavailable Novalocatpedro WILSON, Jorge As Provider Primary Care Provi miko Marcell Badillo MD Unavailable DIONTE FREEMAN Attending Unavailable DIONTE FREEMAN Referring Unavailable CHEY ROMANO Attending Unavailable DIONTE FREEMAN Referring Unavailable DIONTE FREEMAN Attending Unavailable ERICK NAYLOR Attending Unavailable MARCELL BADILLO Referring Unavailable Mauro WILSON, [facility] Primary Care Provider Aby WAGNERCMarcell Attending Provider Mauro WILOSN, [facility] Primary Care Provider Jd Du PA-C Primary Care Provider Eugenio [employer], [place] Primary Care Provider Eugenio [employer] [place] Primary Care Provider Jun Arriola DO Unavailable [phone] Sulma AGUERO, Lorie Unavailable [phone] Gianna Hodge APRN.CNP Unavailable Jd Du PA-C Primary Care Provider Roman WILSON, Winston Glass Attending Unavailable Roman WILSON, Winston Glass Attending Unavailable Mauro WILSON, [facility] Primary Care Provider [phone] Mauro WILSON, [facility] Primary Care Provider Guillermo Thornton MD Attending Provider [phone] Mauro WILSON, [facility] Primary Care Provider Mauro, Francisca Primary Care Unavailable Guillermo Thornton Admitting Unavailable Guillermo Thornton Attending Unavailable Marcell Badillo Attending Unavailable Mauro, Francisca Primary Care Unavailable Marcell Badillo Admitting Unavailable Mauro, Francisca Primary Care Unavailable Guillermo Thornton Admitting Unavailable Guillermo Thornton Attending Unavailable Zeinab POTTSJun Artem Unavailable EDDIE TORRE Attending Unavailable EUGENIO, DIANE Referring Unavailable EUGENIO, DIANE Primary Care Unavailable EUGENIO, DIANE Primary Care Unavailable BRENNEN MICHELLE Attending Unavailable BRENNEN MICHELLE Referring Unavailable EUGENIO, DIANE Primary Care Unavailable BRENNEN MICHELLE Attending Unavailable BRENNEN MICHELLE Referring Unavailable EUGENIO, DIANE Primary Care Unavailable MAURO, FRANCISCA Referring [...] Referring Unavailable MAURO, FRANCISCA Primary Care Unavailable VIVEK GILLIS I Referring Unavailable MAURO, FRANCISCA Primary Care Unavailable GLADISUREDSCAR, ZAC Attending Unavailable ABRAHAN RINALDI Referring Unavailable JD DU Primary Care Unavailable ABRAHAN RINALDI Attending Unavailable MARTHA FAULKNER Referring Unavailable JD DU Primary Care Unavailable JD DU Primary Care Unavailable NOHEMY RAMIREZ Attending Unavailable ALISTAIR MCNALLY Referring Unavailable MAURO, FRANCISCA Primary Care Unavailable ABRAHAN RINALDI Admitting Unavailable ABRAHAN RINALDI Attending Unavailable ABRAHAN RINALDI Referring Unavailable MAURO, FRANCISCA Primary Care Unavailable ESTEFANIA, ZAC Attending Unavailable MAURO, FRANCISCA Primary Care Unavailable MAURO, FRANCISCA Primary Care Unavailable ALISTAIR MCNALLY Attending Unavailable MAURO, FRANCISCA Primary Care Unavailable ABRAHAN RINALDI Referring Unavailable JD DU Primary Care Unavailable AYANNA, JD Mendez Referring Unavailable JD DU Primary Care Unavailable MARCELL BADILLO Attending Unavailable DIANE MCGRATH Referring Unavailable MAURO, FRANCISCA Primary Care Unavailable MAURO, FRANCISCA Referring Unavailable MAURO, FRANCISCA Primary Care Unavailable VIVEK GILLIS I Attending Unavailable MAURO, FRANCISCA Referring Unavailable MAURO, FRANCISCA Primary Care Unavailable MARC ALVES Attending Unavailable MAURO, FRANCISCA Referring Unavailable MAURO, FRANCISCA Primary Care Unavailable ALISTAIR MCNALLY Attending Unavailable MAURO, FRANCISCA Primary Care Unavailable ALISTAIR MCNALLY Attending Unavailable MAURO, FRANCISCA Primary Care Unavailable Unavailable Unavailable Unavailable Allergies Allergy Classification Reported Allergen(s) Allergy Type Date of Onset Reaction(s) Facility (20 sources) Insulin Glargine; Translations: [INSULIN GLARGINE] Drug Allergy 03-21-2023 GI intolerance, Nausea And Vomiting, GI Disturbance, GI Upset [facility] (18 sources) Clindamycin; Translations: [CLINDAMYCIN] Drug Allergy 11-28-2024 Other: See Comments, Other (See Comments) [facility] Medications Current Medications Medication Drug Class(es) Dates Sig (Normalized) Sig (Original) acetaminophen 500 mg oral tablet (16 sources) Start: 02-12-2024 End: 02-22-2024 take 1 tablet by mouth every four hours as needed for pain acetaminophen (TYLENOL EXTRA STRENGTH) 500 mg tablet Indications: Closed fracture of right hip, initial encounter ([facility]) Take 1 tablet (500 mg [...] 2018 11:00pm atorvastatin 40 mg oral tablet (14 sources) HMG-CoA Reductase Inhibitor take 1 tablet [...] Active docusate sodium 50 mg / sennosides, alf 8.6 mg oral tablet (10 sources) Start: 01-29-2024 take 2 tablets by mouth once daily 2 tablet, oral, Nightly, First dose on Mon01/29/24 at 2200 Start: 01-22-2024 take 2 tablets by mo [facility] in the morning sennosides-docusate sodium (SENOKOT-S) 8.6-50 [...] DULoxetine 30 mg delayed release oral capsule (10 sources) Serotonin and Norepinephrine Reuptake Inhibitor Start: [...] End: 04-13-2025 take 1 capsule by mouth in the morning DULoxetine (CYMBALTA) 30 mg capsule Take 1 capsule (30 mg total) by mouth in the morning. 01/13/2025 04/13/2025 Active enteric contrast (will be provided with radiology [...] D2 Compound Start: 01-25-2024 End: 02-09-2024 take 65316 [IU] by mouth every week 50,000 Units, oral, Weekly, First dose on Mon01/29/24 at 1200 Start: 01-18-2024 End: 01-22-2024 take 25025 [IU] by mouth every week 50,000 Units, [...] 05-02-2024 hydroCHLOROthiazide (HYDRODIURIL) 25 mg tablet 03/10/2024 Active Start: 08-03-2022 End: 03-21-2023 take 1 tablet [...] Closed fracture of right hip, initial encounter ([facility]) Take 1 tablet (800 mg [...] the skin Daily before evening meal. 01/23/2024 Active Start: 01-23-2024 inject 18 [IU] [...] Status: Taking; Refills: 0; Provider: Yany Pang losartan potassium 50 mg oral tablet (20 [...] total) by mouth in the morning. 10/24/2023 Active take 1 capsule by mouth once alejandra ly magnesium oxide 400 mg magnesium cap Take 400 mg by mouth once daily. Active multivitamin tablet (3 sources) End: 11-25-2024 [...] Take 40 mg by mouth. 12/01/2023 Active ondansetron 4 mg disintegrating oral tablet (20 [...] mg total) on tongue as needed. 02/14/2024 Active Start: 11-12-2018 End: 05-02-2019 Ondansetron 4 mg Tablet,Disintegrating Discontinued 4 MG PO every 6 to 8 hours as needed for Nausea November 12, 2018 12:00am May 02, 2019 3:22pm OZEMPIC 0.25 mg or 0.5 mg (2 [...] mg/0.5 mL (0.5 mg/mL) subcutaneous compounded injection (13 sources) semaglutide 0.25 mg/0.5 mL (0.5 mg/mL) [...] hydrochloride 0.4 mg oral capsule (20 sources) alpha-Adrene rgic Trung Start: 03-24-2025 take 2 capsules by mouth once daily tamsulosin (FLOMAX) 0.4 mg capsule Take 2 capsules (0.8 mg total) by mouth nightly. 180 capsule 3 03/24/2025 Active Start: 04-28-2018 End: 03-24-2025 take 1 capsule by mouth once daily [...] Discontinued Start: 01-29-2024 take 2000 [IU] by [facility] once daily 2,000 Units, oral, Daily, First [...] (20 sources) take 1 capsule by mo [facility] once daily Cholecalciferol 1000 UNIT 1 capsule [...] Start: 11-02-2023 take 2 tablets by mo ut once daily Colestipol Active 2 GM PO [...] Start: 05-02-2019 take 2 tablets by mo [facility] every twenty-four hours Colestipol HCl 1 GM 2 tablets Orally Once a day for 30 days Sep, Active take 1 tablet by [facility] twice daily colestipol (COLESTID) 1 gram tablet [...] pain - pain scale 4-6, Starting on 01/17/24 at 1008, If IV push, administer over over 2 to 3 minutes. Look-alike/sound-alike medication - verify indication for use. hyoscyamine sulfate 0.125 mg oral tablet (20 sources) Start: 01-29-2024 take 125 ug by mouth four times daily 125 mcg, oral, 4 times daily, First dose on 01/29/24 at 1300 Start: 08-24-2023 End: 06-05-2024 hyoscyamine [...] Closed fracture of right hip, initial encounter ([facility]) Place 1 patch on the [...] for anxiety 2 tablet 07/18/2024 01/15/2025 Discontinued 50 ml magnesium sulfate 40 mg/ml injection [...] previous patch, if present, before applying new. 12 hr orphenadrine citrate 100 mg extended [...] Closed fracture of right hip, initial encounter ([facility]) Take 1 tablet (5 mg [...] Closed fracture of right hip, initial encounter ([facility]) Take 1 tablet (5 mg total) by mouth every 8 (eight) hours as needed for pain. Take 1 tablet (5mg) oxycodone every 5-6 hours PRN pain Max Daily Amount: 15 mg 21 tablet 03/11/2024 03/18/2024 Discontinued (Reorder) Start: 02-25-2024 End: 02-26-2024 oxyCODONE (ROXICODONE) 5 mg immediate release tablet Indications: Closed fracture of right hip, initial encounter ([facility]) Take 1 tablet (5mg) oxycodone every 5-6 hours PRN pain 7 tablet 02/26/2024 Active Start: 02-25-2024 oxyCODONE (ROSALINDA ICODONE) 5 mg immediate release tablet Indications: Closed fracture of right hip, initial encounter ([facility]) Take 1 tablet (5mg) oxycodone every 5-6 hours PRN pain 32 tablet 02/25/2024 Active Start: 02-09-2024 End: 02-26-2024 take 1 tablet by mouth every six hours as needed for pain oxyCODONE (ROXICODONE) 5 mg immediate release tablet Indications: Closed fracture of right hip, initial encounter ([facility]) Take 1 tablet (5 mg [...] Peptic Ulcer Disease (PUD) polyethylene glycol 3350 46621 mg powder for oral solution (3 sources) [...] mg, intra-articular, One- Time Injection, Starting on Whitney 06/20/24 at 1443, For 1 dose vancomycin (VANCOCIN) [...] Onset: 0 Episodic Coagulation and hemorrhagic disorders (20 sources) Thrombocytopenic disorder; Translations: [Thrombocytopenia, unspecified] Onset: 5 11-25-2024 Chronic Diabetes mellitus with complications (20 sources) Polyneuropathy due to diabetes mellitus; Translations: [Type 2 diabetes mellitus with diabetic polyneuropathy] Onset: 4 02-03-2024 Chronic Diabetes mellitus without complication (16 sources) Diabetes mellitus; Translations: [Type 2 diabetes [...] 02-03-2024 Chronic Genitourinary symptoms and ill-defined conditions (9 sources) Difficulty passing urine; Translations: [Other difficulties [...] Onset: 4 Chronic Other connective tissue disease (17 sources) History of total replacement of right hip joint; Translations: [Presence of right artificial hip joint] Onset: 5 11-25-2024 Chronic Other connective tissue disease (2 sources) Presence of right artificial hip joint; Translations: [...] 2 Resolved: 2 Chronic Other liver diseases (7 sources) Unspecified cirrhosis of liver; Translations: [Cirrhosis of liver without mention of alcohol] Onset: 5 Chronic Other liver diseases (4 sources) Hepatic [...] [Polyneuropathy, unspecified] Chronic Other nervous system disorders (4 sources) Polyneuropathy, unspecified; Translations: [Polyneuropathy] Onset: 2 Resolved: 2 Chronic Other nervous [...] syndrome] 01-13-2025 Chronic Other nervous system disorders (2 sources) Polyneuropathy; Translations: [Polyneuropathy, unspecified] 02-21-2025 Chronic Other [...] 09-04-2024 Episodic Residual codes; unclassified (3 sources) History of lumbar discectomy; Translations: [Other specified postprocedural states] 01-13-2025 Episodic Residual codes; unclassified (4 sources) Other specified postprocedural states; Translations: [H/O lumbar discectomy] Onset: 4 Episodic Spondylosis; intervertebral disc disorders; [...] M (1970) Onset: 4 Unclassified (1 source) Hip Pain, Leg Pain Onset: 4 Unclassified (1 source) Difficulty Urinating [...] Resolved: 02-03-2024 02-03-2024 Other aftercare (2 sources) 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; Translations: [jail (current) use of insulin] Onset: 02-03-2024 Episodic [...] Onset: 04-23-2018 04-26-2018 Episodic Residual codes; unclassified (15 sources) History of lumbar laminectomy; Translations: [Other specified postprocedural states] Onset: 04-23-2018 11-25-2024 Episodic Residual codes; unclassified (1 source) Localized edema; Translations: [Localized edema] Onset: 06-07-2024 Episodic Residual codes; unclassified (1 source) Pain, unspecified; Translations: [Pain, unspecified] Onset: 07-02-2024 Episodic Skin and subcutaneous tissue infections (20 sources) Infected face; Translations: [Local infection of the skin and subcutaneous tissue, unspecified] Onset: 04-04-2021 04-04-2021 Episodic Unclassified (14 sources) Onset: 07-18-2024 07-18-2024 Unclassified (1 source) History of total replacement of right hip joint 01-13-2025 Unclassified (1 source) History of lumbar discectomy 01-13-2025 Unclassified (1 source) Preprocedural examination done 01-16-2025 Results Test Name Value Interpretation Reference Range Facility [facility] 03-24-2025 [facility] Telephone ([facility]) -------- RUTH SMITH ([id number]) 1970 M Date Time Provider Department 03/24/25 ALISTAIR MCNALLY [facility] During your visit today, we recorded the following information about you: Ruby Wagner 03/24/2025 2:36 PM Signed Patient is inquiring if Dr Mcnally will prescribe Gabapentin which he is in need of from a previous Provider. Patient is stating that his pain has increased and is inquiring if Dr Mcnally will prescribe any pain med or Prednisone. Patient is inquiring if he still needs his upcoming appointment with Dr Mcnally. Charles Dudley, RN 03/24/2025 4:[address] Mcnally's 02/21/25 plan. Pt's appt. Virtual is scheduled 04/01/25.Message sent to Dr. Mcnally and LUIS Li Jeanne M, RN 03/25/2025 11:21 AM Signed Patient notified and verbalizes understanding Allergies As of Date: 03/24/2025 Noted Allergy Reaction CLINDAMYCIN 11/28/2024 14 - Other: See Comments INSULIN GLARGINE 12/01/2023 8 - GI Upset Comments: basaglar Date Reviewed: 02/21/2025 Reviewed by: Alistair Mcnally MD - Fully Assessed Prescriptions as of 03/25/2025 - DULoxetine (CYMBALTA) 30 mg capsule Take 2 capsules by mouth once daily. - hyoscyamine (LEVSIN) 0.125 mg tablet Take [...] 50 mg by mouth once daily. - tamsulosin ER (FLOMAX) 0.4 mg cap [...] once daily. 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 PROSTATIC SPECIFIC ANTIGEN, DIAGNOSTICon 03-20-2025 PROSTATIC SPEC ANT 0.44 ng/mL Normal 0.00-4.00 [facility] Comment on above: Result Comment: The method used for this test is Kati Yves DXI chemiluminescent immunoassay. Values obtained by different assay methods cannot be used interchangeably. Performed By: #### P ####[facility] ([facility])[address] [address] ODIN Albright 02-21-2025 CNOV Office Visit (PN) -------- RUTH SMITH ([id number]) 1970 M Date Time Provider Department 02/21/25 2:15 PM ALISTAIR MCNALLY [facility] During your visit today, we recorded the [...] symptoms. I will send the order to [facility], as requested. - I increased your duloxetine [...] Alistair Mcnally MD 02/21/2025 4:10 PM Signed [facility] Pain Management Department Follow-Up Evaluation Chief [...] a facility closer to his residence in [place]. Carlo is currently on duloxetine 30 mg [...] Gabapentin Tra (more content not included)... Normal [facility] CBC W Auto Differential pane l (Bld)on 02-20-2025 Basophils (Bld) [#/Vol] 0.06 10*3/uL [facility] Basophils/100 WBC (Bld) 0.6 % [facility] Differential cell count method Nom (Bld) Auto [facility] Eosinophils (Bld) [#/Vol] 0.03 10*3/uL [facility] Eosinophils/100 WBC (Bld) 0.3 % [facility] Erythrocyte distribution width (RBC) [Ratio] 14.7 % 11.5 - 15.0 % [facility] Hematocrit (Bld) [Volume fraction] 48 % 39.0 - 51.0 % [facility] Hemoglobin (Bld) [Mass/Vol] 15.7 g/dL 13.0 - 17.0 g/dL [facility] Immature granulocytes (Bld) [#/Vol] 0.03 10*3/uL [facility] Immature granulocytes/100 WBC (Bld) 0.3 % [facility] Lymphocytes (Bld) [#/Vol] 2.45 10*3/uL [facility] Lymphocytes/100 WBC (Bld) 25.6 % [facility] MCH (RBC) [Entitic mass] 28 pg 26.0 - 34.0 pg [facility] MCHC (RBC) [Mass/Vol] 32.7 g/dL 30.5 - 36.0 g/dL [facility] MCV (RBC) [Entitic vol] 85.7 fL 80.0 - 100.0 fL [facility] Monocytes (Bld) [#/Vol] 0.72 10*3/uL [facility] Monocytes/100 WBC (Bld) 7.5 % [facility] Neutrophils (Bld) [#/Vol] 6.29 10*3/uL [facility] Neutrophils/100 WBC (Bld) 65.7 % [facility] Nucleated RBC (Bld) [#/Vol] NINF [facility] Nucleated RBC/100 WBC (Bld) [Ratio] 0 % /100 WBC [facility] Platelet mean volume (Bld) [Entitic vol] 12.3 fL 9.0 - 12.7 fL [facility] Platelets (Bld) [#/Vol] 164 10*3/uL [facility] RBC (Bld) [#/Vol] 5.6 10*6/uL 4.20 - 6.00 m/uL [facility] WBC (Bld) [#/Vol] 9.58 10*3/uL [facility] Basophils (Bld) [#/Vol] 0.06 10*3/uL Normal <0.11 [facility] Comment on above: Order Comment: Speci men Type: BLOOD SPECIMENOrdering Facility: [facility] Address: [address] [place] [address] Performed By: #### 5 7021-8 ####[facility] [id number] [place] [address] Basophils/100 WBC (Bld) 0.6 % Normal [facility] Comment on above: Order Comment: Speci men Type: BLOOD SPECIMENOrdering Facility: [facility] Address: [address] [place] [address] Performed By: #### 5 7021-8 ####[facility] [id number] [place] [address] Differential cell count method Nom (Bld) Auto Normal [facility] Comment on above: Order Comment: Speci men Type: BLOOD SPECIMENOrdering Facility: [facility] Address: [address] [place] [address] Performed By: #### 5 7021-8 ####[facility] [id number] [place] [address] Eosinophils (Bld) [#/Vol] 0.03 10*3/uL Normal <0.46 [facility] Comment on above: Order Comment: Speci men Type: BLOOD SPECIMENOrdering Facility: [facility] Address: [address] [place] [address] Performed By: #### 5 7021-8 ####[facility] [id number] [place] [address] Eosinophils/100 WBC (Bld) 0.3 % Normal [facility] Comment on above: Order Comment: Speci men Type: BLOOD SPECIMENOrdering Facility: [facility] Address: [address] [place] [address] Performed By: #### 5 7021-8 ####[facility] [id number] [place] [address] Erythrocyte distribution width (RBC) [Ratio] 14.7 % Normal 11.5-15.0 [facility] Comment on above: Order Comment: Speci men Type: BLOOD SPECIMENOrdering Facility: [facility] Address: [address] [place] [address] Performed By: #### 5 7021-8 ####[facility] [id number] [place] [address] Hematocrit (Bld) [Volume fraction] 48.0 % Normal 39.0-51.0 [facility] Comment on above: Order Comment: Speci men Type: BLOOD SPECIMENOrdering Facility: [facility] Address: [address] [place] [address] Performed By: #### 5 7021-8 ####[facility] [id number] [place] [address] Hemoglobin (Bld) [Mass/Vol] 15.7 g/dL Normal 13.0-17.0 [facility] Comment on above: Order Comment: Speci men Type: BLOOD SPECIMENOrdering Facility: [facility] Address: [address] [place] [address] Performed By: #### 5 7021-8 ####[facility] [id number] [place] [address] Immature granulocytes (Bld) [#/Vol] 0.03 10*3/uL Normal <0.10 [facility] Comment on above: Order Comment: Speci men Type: BLOOD SPECIMENOrdering Facility: [facility] Address: [address] [place] [address] Performed By: #### 5 7021-8 ####[facility] [id number] [place] [address] Immature granulocytes/100 WBC (Bld) 0.3 % Normal [facility] Comment on above: Order Comment: Speci men Type: BLOOD SPECIMENOrdering Facility: [facility] Address: [address] [place] [address] Performed By: #### 5 7021-8 ####[facility] [id number] [place] [address] Lymphocytes (Bld) [#/Vol] 2.45 10*3/uL Normal 1.00-4.00 [facility] Comment on above: Order Comment: Speci men Type: BLOOD SPECIMENOrdering Facility: [facility] Address: [address] [place] [address] Performed By: #### 5 7021-8 ####[facility] [id number] [place] [address] Lymphocytes/100 WBC (Bld) 25.6 % Normal [facility] Comment on above: Order Comment: Speci men Type: BLOOD SPECIMENOrdering Facility: [facility] Address: [address] [place] [address] Performed By: #### 5 7021-8 ####[facility] [id number] [place] [address] MCH (RBC) [Entitic mass] 28.0 pg Normal 26.0-34.0 [facility] Comment on above: Order Comment: Speci men Type: BLOOD SPECIMENOrdering Facility: [facility] Address: [address] [place] [address] Performed By: #### 5 7021-8 ####[facility] LABCLIA [id number] [place] [address] MCHC (RBC) [Mass/Vol] 32.7 g/dL Normal 30.5-36.0 [facility] Comment on above: Order Comment: Speci men Type: BLOOD SPECIMENOrdering Facility: [facility] Address: [address] [place] [address] Performed By: #### 5 7021-8 ####[facility] LABCLIA [id number] [place] [address] MCV (RBC) [Entitic vol] 85.7 fL Normal 80.0-100.0 [facility] Comment on above: Order Comment: Speci men Type: BLOOD SPECIMENOrdering Facility: [facility] Address: [address] [place] [address] Performed By: #### 5 7021-8 ####[facility] LABCLIA [id number] [place] [address] Monocytes (Bld) [#/Vol] 0.72 10*3/uL Normal <0.87 [facility] Comment on above: Order Comment: Speci men Type: BLOOD SPECIMENOrdering Facility: [facility] Address: [address] [place] [address] Performed By: #### 5 7021-8 ####[facility] LABCLIA [id number] [place] [address] Monocytes/100 WBC (Bld) 7.5 % Normal [facility] Comment on above: Order Comment: Speci men Type: BLOOD SPECIMENOrdering Facility: [facility] Address: [address] [place] [address] Performed By: #### 5 7021-8 ####[facility] LABCLIA [id number] [place] [address] Neutrophils (Bld) [#/Vol] 6.29 10*3/uL Normal 1.45-7.50 [facility] Comment on above: Order Comment: Speci men Type: BLOOD SPECIMENOrdering Facility: [facility] Address: [address] [place] [address] Performed By: #### 5 7021-8 ####[facility] LABCLIA [id number] [place] [address] Neutrophils/100 WBC (Bld) 65.7 % Normal [facility] Comment on above: Order Comment: Speci men Type: BLOOD SPECIMENOrdering Facility: [facility] Address: [address] [place] [address] Performed By: #### 5 7021-8 ####[facility] LABCLIA [id number] [place] [address] Nucleated RBC (Bld) [#/Vol] 10*3/uL Normal <0.01 [facility] Comment on above: Order Comment: Speci men Type: BLOOD SPECIMENOrdering Facility: [facility] Address: [address] [place] [address] Performed By: #### 5 7021-8 ####[facility] LABCLIA [id number] [place] [address] Nucleated RBC/100 WBC (Bld) [Ratio] 0.0 /100 WBC Normal [facility] Comment on above: Order Comment: Speci men Type: BLOOD SPECIMENOrdering Facility: [facility] Address: [address] [place] [address] Performed By: #### 5 7021-8 ####[facility] LABCLIA [id number] [place] [address] Platelet mean volume (Bld) [Entitic vol] 12.3 fL Normal 9.0-12.7 [facility] Comment on above: Order Comment: Speci men Type: BLOOD SPECIMENOrdering Facility: [facility] Address: [address] [place] [address] Performed By: #### 5 7021-8 ####[facility] LABIA [id number] [place] [address] Platelets (Bld) [#/Vol] 164 10*3/uL Normal 150-400 [facility] Comment on above: Order Comment: Speci men Type: BLOOD SPECIMENOrdering Facility: [facility] Address: [address] [place] [address] Performed By: #### 5 7021-8 ####[facility] LABIA [id number] [place] [address] RBC (Bld) [#/Vol] 5.60 10*6/uL Normal 4.20-6.00 [facility] Comment on above: Order Comment: Speci men Type: BLOOD SPECIMENOrdering Facility: [facility] Address: [address] [place] [address] Performed By: #### 5 7021-8 ####[facility] LABIA [id number] [place] [address] WBC (Bld) [#/Vol] 9.58 10*3/uL Normal 3.70-11.00 [facility] Comment on above: Order Comment: Speci men Type: BLOOD SPECIMENOrdering Facility: [facility] Address: [address] [place] [address] Performed By: #### 5 7021-8 ####[facility] LABIA [id number] [place] [address] CEA SerPl-ncon 02-20-2025 Carcinoembryonic Ag [Mass/Vol] 3.4 ng/mL High <=2.9 [facility] Comment on above: Order Comment: Speci men Type: BLOOD SPECIMENOrdering Facility: [facility] Address: [address] [place] [address] Result Comment: Carc inoembryonic antigen test is used as an aid in monitoring response to treatment or recurrence in patients with established colorectal, breast, lung, prostatic, pancreatic, and ovarian carcinomas. Clinical correlation is required. The Carcinoembryonic antigen test was performed using the [employer] DXI paramagnetic particle chemiluminescent immunoassay method. Results obtained with different assay methods or kits cannot be used interchangeably. Performed By: #### 2 039-6 ####[facility] LABCLIA [id number] [place] HEALTHEmanuel [address] [place] CNOVSPon 02-20-2025 CNOVSP Visit (SP) Office (HEMASA) -------- RUTH SMITH ([id number]) 1970 M Date Time Provider Department 02/20/25 2:20 PM ZAC CROUCH During your visit today, we recorded the following information about you: Temperature Pulse Respiration Blood pressure 97.6 degrees 91/minute 16/minute 120/82 Weight Height 108.2 kg 1.854 m Zac Crouch MD 02/20/2025 4:15 PM Signed PATIENT NAME: Ruth Smith CLINIC NO.: [id number] ATTENDING PHYSICIAN: Zac Crouch MD DATE OF SERVICE: November 28, [address] Abrahan Rinaldi [address] [facility] [address] thank you for referring Ruth Smith for [...] Other: See Comments Insulin Glargine GI Upset agnieszkaaglar PAST MEDICAL HISTORY Diagnosis Date Bipolar 1 [...] Wt Reading (more content not included)... Normal [facility] metabolic 2000 panelOrdered By: Prashant Mishra on 02-20-2025 Albumin [Mass/Vol] 4.9 g/dL 3.9 - 4.9 g/dL [facility] ALP [Catalytic activity/Vol] 69 U/L 38 - 113 U/L [facility] ALT [Catalytic activity/Vol] 8 U/L Low 10 - 54 U/L [facility] Anion gap [Moles/Vol] 12 mmol/L 8 - 15 mmol/L [facility] AST [Catalytic activity/Vol] 16 U/L 14 - 40 U/L [facility] Bilirubin [Mass/Vol] 0.4 mg/dL 0.2 - 1 .3 mg/dL [facility] Calcium [Mass/Vol] 10.4 mg/dL High 8.5 - 10. 2 mg/dL [facility] Chloride [Moles/Vol] 100 mmol/L 98 - 10 7 mmol/L [facility] CO2 [Moles/Vol] 26 mmol/L 22 - 30 mmol/L [facility] Creatinine [Mass/Vol] 0.97 mg/dL 0.73 - 1.22 mg/dL [facility] GFR/1.73 sq M.predicted among non-blacks MDRD (S/P/Bld) [Vol rate/Area] 92 mL/min/{1.73_m2} - PINF [facility] Comment on above: Estimated Glomerular [...] 145 mg/dL High 74 - 99 mg/dL [facility] Comment on above: The [place] Diabete s Association (ADA) provides guidance for [...] Standards of Medical Care in Diabetes 2016, [place] Diabetes Association. Diabetes Care. 2016.39(Suppl 1). Interpretation and review of laboratory results Abnormal [facility] Potassium [Moles/Vol] 4.1 mmol/L 3.7 - 5.1 mmol/L [facility] Protein [Mass/Vol] 8 g/dL 6.3 - 8.0 g/dL [facility] Sodium [Moles/Vol] 138 mmol/L 136 - 144 mmol/L [facility] Urea nitrogen [Mass/Vol] 14 mg/dL 9 - 24 mg/dL [facility] Comprehensive metabolic 2000 panelon 02-20-2025 Albumin [Mass/Vol] 4.9 g/dL Normal 3.9-4.9 [facility] Comment on above: Order Comment: Speci men Type: BLOOD SPECIMENOrdering Facility: [facility] Address: [address] [place] [address] Performed By: #### 2 4323-8 ####[facility] LABCLIA [id number] [place] [address] ALP [Catalytic activity/Vol] 69 U/L Normal 38-113 [facility] Comment on above: Order Comment: Speci men Type: BLOOD SPECIMENOrdering Facility: [facility] Address: [address] [place] [address] Performed By: #### 2 4323-8 ####[facility] LABCLIA [id number] [place] [address] ALT [Catalytic activity/Vol] 8 U/L Low 10-54 [facility] Comment on above: Order Comment: Speci men Type: BLOOD SPECIMENOrdering Facility: [facility] Address: [address] [place] [address] Performed By: #### 2 4323-8 ####[facility] LABCLIA [id number] [place] [address] Anion gap [Moles/Vol] 12 mmol/L Normal 8-15 [facility] Comment on above: Order Comment: Speci men Type: BLOOD SPECIMENOrdering Facility: [facility] Address: [address] [place] [address] Performed By: #### 2 4323-8 ####[facility] LABCLIA [id number] [place] [address] AST [Catalytic activity/Vol] 16 U/L Normal 14-40 [facility] Comment on above: Order Comment: Speci men Type: BLOOD SPECIMENOrdering Facility: [facility] Address: [address] [place] [address] Performed By: #### 2 4323-8 ####[facility] LABCLIA [id number] [place] [address] Bilirubin [Mass/Vol] 0.4 mg/dL Normal 0.2-1.3 [facility] Comment on above: Order Comment: Speci men Type: BLOOD SPECIMENOrdering Facility: [facility] Address: [address] [place] [address] Performed By: #### 2 4323-8 ####[facility] LABCLIA [id number] [place] [address] Calcium [Mass/Vol] 10.4 mg/dL High 8.5-10.2 [facility] Comment on above: Order Comment: Speci men Type: BLOOD SPECIMENOrdering Facility: [facility] Address: [address] [place] [address] Performed By: #### 2 4323-8 ####[facility] LABCLIA [id number] [place] [address] Chloride [Moles/Vol] 100 mmol/L Normal 98-107 [facility] Comment on above: Order Comment: Speci men Type: BLOOD SPECIMENOrdering Facility: [facility] Address: [address] [place] [address] Performed By: #### 2 4323-8 ####[facility] LABCLIA [id number] [place] [address] CO2 [Moles/Vol] 26 mmol/L Normal 22-30 [facility] Comment on above: Order Comment: Speci men Type: BLOOD SPECIMENOrdering Facility: [facility] Address: [address] [id number] Performed By: #### 2 4323-8 ####[facility] LABCLIA [id number] [place] [address] Creatinine [Mass/Vol] 0.97 mg/dL Normal 0.73-1.22 [facility] Comment on above: Order Comment: Speci men Type: BLOOD SPECIMENOrdering Facility: [facility] Address: [address] [place] [address] Performed By: #### 2 4323-8 ####[facility] LABCLIA [id number] [place] [address] Creatinine and Glomerular filtration rate.predicted panel (S/P/Bld) 92 mL/min/1.73m??? Normal >=60 [facility] Comment on above: Order Comment: Speci men Type: BLOOD SPECIMENOrdering Facility: [facility] Address: [address] [place] [address] Result Comment: Lou mated Glomerular Filtration Rate [...] actual GFR. Performed By: #### 2 4323-8 ####[facility] LABCLIA [id number] [place] [address] Glucose [Mass/Vol] 145 mg/dL High 74-99 [facility] Comment on above: Order Comment: Speci men Type: BLOOD SPECIMENOrdering Facility: [facility] Address: [address] [id number] Result Comment: The [place] Diabetes Association (ADA) provides guidance for cutoff [...] Standards of Medical Care in Diabetes 2016, [place] Diabetes Association. Diabetes Care. 2016.39(Suppl 1). Performed By: #### 2 4323-8 ####[facility] LABCLIA [id number] [place] [address] Potassium [Moles/Vol] 4.1 mmol/L Normal 3.7-5.1 [facility] Comment on above: Order Comment: Speci men Type: BLOOD SPECIMENOrdering Facility: [facility] Address: [address] [place] [address] Performed By: #### 2 4323-8 ####[facility] LABCLIA [id number] [place] [address] Protein [Mass/Vol] 8.0 g/dL Normal 6.3-8.0 [facility] Comment on above: Order Comment: Speci men Type: BLOOD SPECIMENOrdering Facility: [facility] Address: [address] [place] [address] Performed By: #### 2 4323-8 ####[facility] LABCLIA [id number] [place] [address] Sodium [Moles/Vol] 138 mmol/L Normal 136-144 [facility] Comment on above: Order Comment: Speci men Type: BLOOD SPECIMENOrdering Facility: [facility] Address: [address] [place] [address] Performed By: #### 2 4323-8 ####[facility] LABCLIA [id number] [place] [address] Urea nitrogen [Mass/Vol] 14 mg/dL Normal 9-24 [facility] Comment on above: Order Comment: Speci men Type: BLOOD SPECIMENOrdering Facility: [facility] Address: [facility] [place] [address] Performed By: #### 2 4323-8 ####[facility] LABCLIA [id number] [place] [address] ECG 12 leadon 01-16-2025 TRACEMASTERVUE [facility] URINALYSISon 01-15-2025 Bilirubin Ql (U) Negative Normal Negative [facility] Comment on above: Order Comment: Clean catch, midstreamif symptomatic. Urine culture if positive for bacteria, blood, protein, white blood count over 5, nitrates or leukocyte esterase positive Performed By: #### U A ####[facility] ([facility])[address] [address] VIR BLOOD/HGB Negative Normal Negative [facility] Comment on above: Order Comment: Clean catch, midstreamif symptomatic. Urine culture if positive for bacteria, blood, protein, white blood count over 5, nitrates or leukocyte esterase positive Performed By: #### U A ####[facility] ([facility])[address] [facility] [address], [place] [address] VIR Color (U) Yellow Normal Yellow, Colorless [facility] Comment on above: Order Comment: Clean catch, midstreamif symptomatic. Urine culture if positive for bacteria, blood, protein, white blood count over 5, nitrates or leukocyte esterase positive Performed By: #### U A ####[facility] ([facility])[address] [address] VIR Glucose Ql (U) Negative Normal Negative [facility] Comment on above: Order Comment: Clean catch, midstreamif symptomatic. Urine culture if positive for bacteria, blood, protein, white blood count over 5, nitrates or leukocyte esterase positive Performed By: #### U A ####[facility] ([facility])[address] [facility] [address], [place] [address] VIR Ketones Ql (U) Negative Normal Negative [facility] Comment on above: Order Comment: Clean catch, midstreamif symptomatic. Urine culture if positive for bacteria, blood, protein, white blood count over 5, nitrates or leukocyte esterase positive Performed By: #### U A ####[facility] ([facility])[address] [address] VIR Leukocyte esterase Test strip Ql (U) Negative Normal Negative [facility] Comment on above: Order Comment: Clean catch, midstreamif symptomatic. Urine culture if positive for bacteria, blood, protein, white blood count over 5, nitrates or leukocyte esterase positive Performed By: #### U A ####[facility] ([facility])[address] [address] VIR Nitrite Ql (U) Negative Normal Negative [facility] Comment on above: Order Comment: Clean catch, midstreamif symptomatic. Urine culture if positive for bacteria, blood, protein, white blood count over 5, nitrates or leukocyte esterase positive Performed By: #### U A ####[facility] ([facility])[address] [address] VIR PH,URINE 7.0 Normal 5.0-8.5 [facility] Comment on above: Order Comment: Clean catch, midstreamif symptomatic. Urine culture if positive for bacteria, blood, protein, white blood count over 5, nitrates or leukocyte esterase positive Performed By: #### U A ####[facility] ([facility])[address] [address] VIR Protein Ql (U) Negative Normal Negative [facility] Comment on above: Order Comment: Clean catch, midstreamif symptomatic. Urine culture if positive for bacteria, blood, protein, white blood count over 5, nitrates or leukocyte esterase positive Performed By: #### U A ####[facility] ([facility])[address] [address] VIR Specific gravity (U) [Rel density] 1.020 Normal 1.003-1.03 5 [facility] Comment on above: Order Comment: Clean catch, midstreamif symptomatic. Urine culture if positive for bacteria, blood, protein, white blood count over 5, nitrates or leukocyte esterase positive Performed By: #### U A ####[facility] ([facility])[address] [facility] [address] [address] VIR TURBIDITY Clear Normal Clear [facility] Comment on above: Order Comment: Clean catch, midstreamif symptomatic. Urine culture if positive for bacteria, blood, protein, white blood count over 5, nitrates or leukocyte esterase positive Performed By: #### U A ####[facility] ([facility])[address] [facility] [address], [place] [address] VIR UROBILINOGEN 2 eu/dL Abnormal <1.1 eu/dL [facility] Comment on above: Order Comment: Clean catch, midstreamif symptomatic. Urine culture if positive for bacteria, blood, protein, white blood count over 5, nitrates or leukocyte esterase positive Performed By: #### U A ####[facility] ([facility])[address] [address] VIR URINE CULTUREon 01-15-2025 Bacteria identified Cx Nom (U) CULTURE RESULTS <10,000 ORGANISMS/mL NORMAL URO GENITAL KIMBERLEY Normal [facility] Comment on above: Performed By: #### U C ####[facility] ([facility])[address] [place] [address] VIR Glucose Poct Glucometerson 0 12-30-2024 Commemt1 Glu2: Cleaned Meter Normal [facility] Comment on above: Result Comment: PERF ORMED BY: [facility] [address] [place] [address] PATHOLOGIST SIGNAL CONSTRUCTOR YVONNE RODRIGUEZ M.D. Performed By: #### G LULS #### Point of Care testing , Glucose [Mass/Vol] 106 mg/dL Normal [facility] Comment on above: Result Comment: [place] Glucose Reference Range is dependent on time and content of last meal. Glucose of more than 200 mg/dL in a nonstressed, ambulatory subject supports the diagnosis of Diabetes Mellitus. Performed By: #### G LULS #### Point of Care testing , ELIANENon 12-18-2024 CNPN Telephone (PAINLN) -------- RUTH SMITH ([id number]) 1970 M Date Time Provider Department 12/18/24 ABRAHAN RINALDI PAINLN During your visit today, [...] up at that visit per patient. Ellen Palm, RN 12/23/2024 11:30 AM Signed Pt is identified by name and birthdate: Yes Patient calls C/O right hip AND leg pain. Has a lot pressure whenever he applies pressure when walking Still has numbness going down both legs whenever he is sitting on toilet Also C/O neck pain Requesting something for the pain until his 01/03 appt Please advise Komal Hernadez APRN.[employer] 12/24/2024 9:25 AM Signed Can we call [...] Spoke with pt, reviewed below message from [facility]. Patient denies the following red flag [...] for clarification, [facility] Per Komal Hernadez MANAGER [employer], Patient should see Chronic pain clinic first [...] (PRILOSEC) 40 (more content not included)... Normal [facility] HISTORY PHYSICALon HISTORY PHYSICAL HNO ID: [id number] Author: ABRAHAN RINALDI MD Service: Pain Management [...] December 16, 2024 TIME: 8:12 AM Normal [facility] HISTORY PHYSICAL HNO ID: [id number] Author: MARC NULL APRN.[employer] Service: ? Author Type: Nurse Practitioner Type: [...] See Comments Insulin Glargine GI Upset isabellaar Objective PHYSICAL EXAM: The remainder of the [...] GUIDANCE FLUORO OR CT SIGNATURE: Marc Null APRN.ELIANE PATIENT NAME: Ruth Smith DATE: December 16, 2024 TIME: 7:50 AM Normal [facility] OPERATIVE NOon 12-16-2024 OPERATIVE NO HNO ID: [id number] Author: ABRAHAN RINALDI MD Service: Pain Management Author Type: Physician Type: Operative Report Filed: 12/16/2024 08:27 Note Text: Patient Name Medical Record # Ruth Smith [id number] Date of : 1970 Admit Date: December 16, 2024 Sex / Age: male/54 year old Discharge Date: December 16, 2024 Attending Physician: Abrahan Rinaldi MD Date: December 16, 2024 Service: OPERATIVE REPORT LOG ID: [id number] Surgery/Procedure Date: 12/16/2024 Incision/Procedure Start Time: 8:16 AM Incision Close/Procedure End Time: 8:20 AM Surgeon(s)/Proceduralist (s) and Agricultural Extension Agent(s): Surgeons and Role: * Abrahan Rinaldi MD - Primary No Additional Staff PREOPERATIVE DIAGNOSIS: Right Lumbosacral Radiculopathy and Lumbar Postlaminectomy Syndrome POSTOPERATIVE DIAGNOSIS: Same NAME OF OPERATION: Right L5-S1 Transforaminal Epidural Steroid injection # 1 under fluoroscopic guidance. SURGEON: Abrahan Rinaldi MD CONDUCTOR PULLMAN: None ANESTHESIA: Moderate sedation and local anesthesia [...] MD Pain Management December 16, 2024 Normal [facility] US abdomen limitedon 025 US abdomen limited [facility] Main [place] [address] [place] [address] Ultrasound Report Signed Patient: Ruth Smith MR#: [id number] : 1970 Acct:[id number] Age/Sex: 54 / M ADM Date: 12/12/24 Loc: Room: Type: [facility] Attending Dr: Guillermo Thornton MD Ordering [...] Kuo M.D. 12/12/2024 7:59 PM Dictation Location: [facility] Tech: Keren Hope Transcribed By: YAZ 12/12/241958 Dictated By: Thierry Kuo MD 12/12/241954 Signed By: 12/12/241958 Normal [facility] Physician [facility] Measure post void residualon 12-04-2024 Volume 83 mL eblizz System eblizz System CNPNon 12-02-2024 CNPN Telephone (ORLORA) -------- RUTH SMITH ([id number]) 1970 M Date Time Provider Department 12/02/24 ABRAHAN RINALDI During your visit today, we recorded the following information about you: Brennen Agrawal 12/02/2024 9:22 AM Signed Right L5-S1 TFESI RUTH SMITH [id number] NIMCO 12/16 -THINNERS +DM Patient was made aware that the [facility] will call the day prior to scheduled procedure between the hours of 12 and 4 pm to advise patient of arrival time the day of procedure. 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 CARCINOEMBRYONIC ANTIGENon 0 11-29-2024 Carcinoembryonic Ag [Mass/Vol] 4.1 ng/mL High NINF - 2.9 ng/mL [facility] Comment on above: Carcinoembryonic ant igen test is used as an aid in monitoring response to treatment or recurrence in patients with established colorectal, breast, lung, prostatic, pancreatic, and ovarian carcinomas. Clinical correlation is required. The Carcinoembryonic antigen test was performed using the [employer] Un[employer] DXI paramagnetic particle chemiluminescent immunoassay method. Results obtained with different assay methods or kits cannot be used interchangeably. CBC W Auto Differential pane l (Bld)on 11-29-2024 Basophils (Bld) [#/Vol] 0.05 10*3/uL NINF [facility] Basophils/100 WBC (Bld) 0.6 % [facility] Differential cell count method Nom (Bld) Auto [facility] Eosinophils (Bld) [#/Vol] 0.03 10*3/uL [facility] Eosinophils/100 WBC (Bld) 0.3 % [facility] Erythrocyte distribution width (RBC) [Ratio] 15.2 % High 11.5 - 15.0 % [facility] Hematocrit (Bld) [Volume fraction] 46.3 % 39.0 - 51.0 % [facility] Hemoglobin (Bld) [Mass/Vol] 15.3 g/dL 13.0 - 17.0 g/dL [facility] Immature granulocytes (Bld) [#/Vol] 0.04 10*3/uL [facility] Immature granulocytes/100 WBC (Bld) 0.5 % [facility] Interpretation and review of laboratory results Abnormal [facility] Lymphocytes (Bld) [#/Vol] 2.06 10*3/uL [facility] Lymphocytes/100 WBC (Bld) 23.7 % [facility] MCH (RBC) [Entitic mass] 27.5 pg 26.0 - 34.0 pg [facility] MCHC (RBC) [Mass/Vol] 33 g/dL 30.5 - 36.0 g/dL [facility] MCV (RBC) [Entitic vol] 83.1 fL 80.0 - 100.0 fL [facility] Monocytes (Bld) [#/Vol] 0.52 10*3/uL [facility] Monocytes/100 WBC (Bld) 6 % [facility] Neutrophils (Bld) [#/Vol] 5.99 10*3/uL [facility] Neutrophils/100 WBC (Bld) 68.9 % [facility] Nucleated RBC (Bld) [#/Vol] [facility] Nucleated RBC/100 WBC (Bld) [Ratio] 0 % /100 WBC [facility] Platelet mean volume (Bld) [Entitic vol] 12.9 fL High 9.0 - 12.7 fL [facility] Platelets (Bld) [#/Vol] 135 10*3/uL Low [facility] RBC (Bld) [#/Vol] 5.57 10*6/uL 4.20 - 6.00 m/uL [facility] WBC (Bld) [#/Vol] 8.69 10*3/uL [facility] Carcinoembryonic Ag [Mass/Vo l]on 11-29-2024 Interpretation and review of laboratory results Abnormal [facility] Comprehensive metabolic 2000 panelOrdered By: Malou Mckee on 11-29-2024 Albumin [Mass/Vol] 4.8 g/dL 3.9 - 4.9 g/dL [facility] ALP [Catalytic activity/Vol] 80 U/L 38 - 113 U/L [facility] ALT [Catalytic activity/Vol] 7 U/L Low 10 - 54 U/L [facility] Anion gap [Moles/Vol] 14 mmol/L 8 - 15 mmol/L [facility] AST [Catalytic activity/Vol] 14 U/L 14 - 40 U/L [facility] Bilirubin [Mass/Vol] 0.6 mg/dL 0.2 - 1 .3 mg/dL [facility] Calcium [Mass/Vol] 10.3 mg/dL High 8.5 - 10. 2 mg/dL [facility] Chloride [Moles/Vol] 101 mmol/L 98 - 10 7 mmol/L [facility] CO2 [Moles/Vol] 23 mmol/L 22 - 30 mmol/L [facility] Creatinine [Mass/Vol] 0.77 mg/dL 0.73 - 1.22 mg/dL [facility] GFR/1.73 sq M.predicted among non-blacks MDRD (S/P/Bld) [Vol rate/Area] 105 mL/min/{1.73_m2} - PINF [facility] Comment on above: Estimated Glomerular [...] 150 mg/dL High 74 - 99 mg/dL [facility] Comment on above: The [place] Diab[employer] s Association (ADA) provides guidance for [...] Standards of Medical Care in Diabetes 2016, [place] Diabetes [employer]. Diabetes Care. 2016.39(Suppl 1). Potassium [Moles/Vol] 4.2 mmol/L 3.7 - 5.1 mmol/L [facility] Protein [Mass/Vol] 7.6 g/dL 6.3 - 8.0 g/dL [facility] Sodium [Moles/Vol] 138 mmol/L 136 - 144 mmol/L [facility] Urea nitrogen [Mass/Vol] 10 mg/dL 9 - 24 mg/dL [facility] FOLATE, SERUMon 11-29-2024 Folate [Mass/Vol] 11.6 ng/mL 4.7 - PINF ng/mL [facility] LACTATE DEHYDROGENASEon 11-12 LDH [Catalytic activity/Vol] 130 U/L Low 135 - 225 U/L [facility] Comment on above: Hemolysis present. [...] Interpretation and review of laboratory results Abnormal [facility] No Panel Informationon 11-29 Interpretation and review of laboratory results Normal [facility] Nuclear Ab IA Ql (S)on 11-29 LEATHA Scr Qual Negative Negative [facility] Comment on above: The qualitative anti nuclear antibody screen test performed using the following antigens: dsDNA, Chromatin, Ribosomal P, SS-A 60, SS-A 52, SS-B, Sm, SmRNP, CLINIC DIRECTOR A, CLINIC DIRECTOR 68, Scl-70, Deidra-1, and Centromere B. Methodology: Multiplex flow immunoassay. Interpretation and review of laboratory results Normal [facility] VITAMIN B12on 11-29-2024 Cobalamin (Vitamin B12) [Mass/Vol] 306 pg/mL 232 - 1245 pg/mL [facility] CBC W Auto Differential pane l (Bld)on 11-28-2024 Basophils (Bld) [#/Vol] 0.05 10*3/uL Normal <0.11 [facility] Comment on above: Order Comment: Speci men Type: BLOOD SPECIMENOrdering Facility: [facility] Address: [address] [place] [address] Performed By: #### 5 7021-8 ####[facility] LABCLIA [id number] [place] [address] Basophils/100 WBC (Bld) 0.6 % Normal [facility] Comment on above: Order Comment: Speci men Type: BLOOD SPECIMENOrdering Facility: [facility] Address: [address] [place] [address] Performed By: #### 5 7021-8 ####[facility] LABCLIA [id number] [place] [address] Differential cell count method Nom (Bld) Auto Normal [facility] Comment on above: Order Comment: Speci men Type: BLOOD SPECIMENOrdering Facility: [facility] Address: [address] [place] [address] Performed By: #### 5 7021-8 ####[facility] LABCLIA [id number] [place] [address] Eosinophils (Bld) [#/Vol] 0.03 10*3/uL Normal <0.46 [facility] Comment on above: Order Comment: Speci men Type: BLOOD SPECIMENOrdering Facility: [facility] Address: [address] [place] [address] Performed By: #### 5 7021-8 ####[facility] LABCLIA [id number] [place] [address] Eosinophils/100 WBC (Bld) 0.3 % Normal [facility] Comment on above: Order Comment: Speci men Type: BLOOD SPECIMENOrdering Facility: [facility] Address: [address] [place] [address] Performed By: #### 5 7021-8 ####[facility] LABCLIA [id number] [place] [address] Erythrocyte distribution width (RBC) [Ratio] 15.2 % High 11.5-15.0 [facility] Comment on above: Order Comment: Speci men Type: BLOOD SPECIMENOrdering Facility: [facility] Address: [address] [place] [address] Performed By: #### 5 7021-8 ####[facility] LABCLIA [id number] [place] [address] Hematocrit (Bld) [Volume fraction] 46.3 % Normal 39.0-51.0 [facility] Comment on above: Order Comment: Speci men Type: BLOOD SPECIMENOrdering Facility: [facility] Address: [address] [place] [address] Performed By: #### 5 7021-8 ####[facility] LABCLIA [id number] [place] [address] Hemoglobin (Bld) [Mass/Vol] 15.3 g/dL Normal 13.0-17.0 [facility] Comment on above: Order Comment: Speci men Type: BLOOD SPECIMENOrdering Facility: [facility] Address: [address] [place] [address] Performed By: #### 5 7021-8 ####[facility] LABCLIA [id number] [place] [address] Immature granulocytes (Bld) [#/Vol] 0.04 10*3/uL Normal <0.10 [facility] Comment on above: Order Comment: Speci men Type: BLOOD SPECIMENOrdering Facility: [facility] Address: [address] [place] [address] Performed By: #### 5 7021-8 ####[facility] LABCLIA [id number] [place] [address] Immature granulocytes/100 WBC (Bld) 0.5 % Normal [facility] Comment on above: Order Comment: Speci men Type: BLOOD SPECIMENOrdering Facility: [facility] Address: [address] [place] [address] Performed By: #### 5 7021-8 ####[facility] LABCLIA [id number] [place] [address] Lymphocytes (Bld) [#/Vol] 2.06 10*3/uL Normal 1.00-4.00 [facility] Comment on above: Order Comment: Speci men Type: BLOOD SPECIMENOrdering Facility: [facility] Address: [address] [place] [address] Performed By: #### 5 7021-8 ####[facility] LABCLIA [id number] [place] [address] Lymphocytes/100 WBC (Bld) 23.7 % Normal [facility] Comment on above: Order Comment: Speci men Type: BLOOD SPECIMENOrdering Facility: [facility] Address: [address] [place] [address] Performed By: #### 5 7021-8 ####[facility] LABCLIA [id number] [place] [address] MCH (RBC) [Entitic mass] 27.5 pg Normal 26.0-34.0 [facility] Comment on above: Order Comment: Speci men Type: BLOOD SPECIMENOrdering Facility: [facility] Address: [address] [place] [address] Performed By: #### 5 7021-8 ####[facility] LABCLIA [id number] [place] [address] MCHC (RBC) [Mass/Vol] 33.0 g/dL Normal 30.5-36.0 [facility] Comment on above: Order Comment: Speci men Type: BLOOD SPECIMENOrdering Facility: [facility] Address: [address] [place] [address] Performed By: #### 5 7021-8 ####[facility] LABCLIA [id number] [place] [address] MCV (RBC) [Entitic vol] 83.1 fL Normal 80.0-100.0 [facility] Comment on above: Order Comment: Speci men Type: BLOOD SPECIMENOrdering Facility: [facility] Address: [address] [place] [address] Performed By: #### 5 7021-8 ####[facility] LABCLIA [id number] [place] [address] Monocytes (Bld) [#/Vol] 0.52 10*3/uL Normal <0.87 [facility] Comment on above: Order Comment: Speci men Type: BLOOD SPECIMENOrdering Facility: [facility] Address: [address] [place] [address] Performed By: #### 5 7021-8 ####[facility] LABCLIA [id number] [place] [address] Monocytes/100 WBC (Bld) 6.0 % Normal [facility] Comment on above: Order Comment: Speci men Type: BLOOD SPECIMENOrdering Facility: [facility] Address: [address] [place] [address] Performed By: #### 5 7021-8 ####[facility] LABCLIA [id number] [place] [address] Neutrophils (Bld) [#/Vol] 5.99 10*3/uL Normal 1.45-7.50 [facility] Comment on above: Order Comment: Speci men Type: BLOOD SPECIMENOrdering Facility: [facility] Address: [address] [place] [address] Performed By: #### 5 7021-8 ####[facility] LABCLIA [id number] [place] [address] Neutrophils/100 WBC (Bld) 68.9 % Normal [facility] Comment on above: Order Comment: Speci men Type: BLOOD SPECIMENOrdering Facility: [facility] Address: [address] [place] [address] Performed By: #### 5 7021-8 ####[facility] LABCLIA [id number] [place] [address] Nucleated RBC (Bld) [#/Vol] 10*3/uL Normal <0.01 [facility] Comment on above: Order Comment: Speci men Type: BLOOD SPECIMENOrdering Facility: [facility] Address: [address] [place] [address] Performed By: #### 5 7021-8 ####[facility] LABCLIA [id number] [place] [address] Nucleated RBC/100 WBC (Bld) [Ratio] 0.0 /100 WBC Normal [facility] Comment on above: Order Comment: Speci men Type: BLOOD SPECIMENOrdering Facility: [facility] Address: [address] [place] [address] Performed By: #### 5 7021-8 ####[facility] LABCLIA [id number] [place] [address] Platelet mean volume (Bld) [Entitic vol] 12.9 fL High 9.0-12.7 [facility] Comment on above: Order Comment: Speci men Type: BLOOD SPECIMENOrdering Facility: [facility] Address: [address] [place] [address] Performed By: #### 5 7021-8 ####[facility] LABCLIA [id number] [place] [address] Platelets (Bld) [#/Vol] 135 10*3/uL Low 150-400 [facility] Comment on above: Order Comment: Speci men Type: BLOOD SPECIMENOrdering Facility: [facility] Address: [address] [place] [address] Performed By: #### 5 7021-8 ####[facility] LABCLIA [id number] [place] [address] RBC (Bld) [#/Vol] 5.57 10*6/uL Normal 4.20-6.00 [facility] Comment on above: Order Comment: Speci men Type: BLOOD SPECIMENOrdering Facility: [facility] Address: [address] [place] [address] Performed By: #### 5 7021-8 ####[facility] LABCLIA [id number] [place] [address] WBC (Bld) [#/Vol] 8.69 10*3/uL Normal 3.70-11.00 [facility] Comment on above: Order Comment: Speci men Type: BLOOD SPECIMENOrdering Facility: [facility] Address: [address] [place] [address] Performed By: #### 5 7021-8 ####[facility] LABCLIA [id number] [place] [address] CEA SerPl-ncon 11-28-2024 Carcinoembryonic Ag [Mass/Vol] 4.1 ng/mL High <=2.9 [facility] Comment on above: Order Comment: Speci men Type: BLOOD SPECIMENOrdering Facility: [facility] Address: [address] [place] [address] Result Comment: Carc inoembryonic antigen test is used as an aid in monitoring response to treatment or recurrence in patients with established colorectal, breast, lung, prostatic, pancreatic, and ovarian carcinomas. Clinical correlation is required. The Carcinoembryonic antigen test was performed using the [employer] Unicel DXI paramagnetic particle chemiluminescent immunoassay method. Results obtained with different assay methods or kits cannot be used interchangeably. Performed By: #### 2 039-6 ####[facility] LABCLIA [id number] [address] [facility] CNOVSPon 11-28-2024 CNOVSP Visit (SP) Office (HEMASA) -------- RUTH SMITH ([id number]) 1970 M Date Time Provider Department 11/28/24 4:00 PM ZAC CROUCH During your visit today, we recorded the following information about you: Temperature Pulse Respiration Blood pressure 97.9 degrees 91/minute 18/minute 143/83 Weight 105 kg Zac Crouch MD 11/29/2024 8:20 AM Signed PATIENT NAME: Ruth Smith CLINIC NO.: [id number] ATTENDING PHYSICIAN: Zac Crouch MD DATE OF SERVICE: November 28, [address] Abrahan Rinaldi [address] [facility] [address] thank you for referring Ruth Smith for [...] in NA (more content not included)... Normal [facility] COPPER BLOODon 11-28-2024 Copper [Mass/Vol] 83 ug/dL Normal 70-140 [facility] Comment on above: Order Comment: Speci men Type: BLOOD SPECIMENOrdering Facility: [facility] Address: [address] [place] [address] Result Comment: This test was developed, and its performance characteristics determined by the [facility] Department of Pathology and Laboratory Medicine. It has not been cleared or approved by the FDA. The [facility] Department of Pathology and Laboratory Medicine is regulated under CLIA as qualified to perform high-complexity testing. This test is used for clinical purposes. It should not be regarded as investigational or for research. Performed By: #### C ABUNDIO, 5763-8 ####[facility] LABCLIA [id number] [place] [address] [place] Comprehensive metabolic 2000 panelon 11-28-2024 Albumin [Mass/Vol] 4.8 g/dL Normal 3.9-4.9 [facility] Comment on above: Order Comment: Speci men Type: BLOOD SPECIMENOrdering Facility: [facility] Address: [address] [place] [address] Performed By: #### 2 4323-8, 2531-0 ####[facility] LABCLIA [id number] [place] [address] ALP [Catalytic activity/Vol] 80 U/L Normal 38-113 [facility] Comment on above: Order Comment: Speci men Type: BLOOD SPECIMENOrdering Facility: [facility] Address: [address] [place] [address] Performed By: #### 2 4323-8, 253-0 ####[facility] LABCLIA [id number] [place] [address] ALT [Catalytic activity/Vol] 7 U/L Low 10-54 [facility] Comment on above: Order Comment: Speci men Type: BLOOD SPECIMENOrdering Facility: [facility] Address: [address] [place] [address] Performed By: #### 2 4323-8, 2531-0 ####[facility] LABCLIA [id number] [place] [address] Anion gap [Moles/Vol] 14 mmol/L Normal 8-15 [facility] Comment on above: Order Comment: Speci men Type: BLOOD SPECIMENOrdering Facility: [facility] Address: [address] [place] [address] Performed By: #### 2 432-8, 2531-0 ####[facility] LABCLIA [id number] [place] [address] AST [Catalytic activity/Vol] 14 U/L Normal 14-40 [facility] Comment on above: Order Comment: Speci men Type: BLOOD SPECIMENOrdering Facility: [facility] Address: [address] [place] [address] Performed By: #### 2 4323-8, 2532-0 ####[facility] LABCLIA [id number] [place] [address] Bilirubin [Mass/Vol] 0.6 mg/dL Normal 0.2-1.3 [facility] Comment on above: Order Comment: Speci men Type: BLOOD SPECIMENOrdering Facility: [facility] Address: [address] [place] [address] Performed By: #### 2 4323-8, 2531-0 ####[facility] LABCLIA [id number] [place] [address] Calcium [Mass/Vol] 10.3 mg/dL High 8.5-10.2 [facility] Comment on above: Order Comment: Speci men Type: BLOOD SPECIMENOrdering Facility: [facility] Address: [address] [place] [address] Performed By: #### 2 432-8, 2531-0 ####[facility] LABCLIA [id number] [place] [address] Chloride [Moles/Vol] 101 mmol/L Normal 98-107 [facility] Comment on above: Order Comment: Speci men Type: BLOOD SPECIMENOrdering Facility: [facility] Address: [address] [place] [address] Performed By: #### 2 4323-8, 2531-0 ####[facility] LABCLIA [id number] [place] [address] CO2 [Moles/Vol] 23 mmol/L Normal 22-30 [facility] Comment on above: Order Comment: Speci men Type: BLOOD SPECIMENOrdering Facility: [facility] Address: [address] [place] [address] Performed By: #### 2 4323-8, 2531-0 ####[facility] LABCLIA [id number] [place] [address] Creatinine [Mass/Vol] 0.77 mg/dL Normal 0.73-1.22 [facility] Comment on above: Order Comment: Speci men Type: BLOOD SPECIMENOrdering Facility: [facility] Address: [address] [place] [address] Performed By: #### 2 4323-8, 2532-0 ####[facility] LABCLIA [id number] [place] [address] Creatinine and Glomerular filtration rate.predicted panel (S/P/Bld) 105 mL/min/1.73m??? Normal >=60 [facility] Comment on above: Order Comment: Speci men Type: BLOOD SPECIMENOrdering Facility: [facility] Address: [address] [place] [address] Result Comment: Lou mated Glomerular Filtration Rate [...] GFR. Performed By: #### 2 4323-8, 0 ####[facility] LABIA [id number] [place] [address] Glucose [Mass/Vol] 150 mg/dL High 74-99 [facility] Comment on above: Order Comment: Speci galo Type: BLOOD SPECIMENOrdering Facility: [facility] Address: [address] [place] [address] Result Comment: The [place] Diabetes Association (ADA) provides guidance for cutoff [...] Standards of Medical Care in Diabetes 2016, [place] Diabetes Association. Diabetes Care. 2016.39(Suppl 1). Performed By: #### 2 4323-8, 0 ####[facility] LABIA [id number] [place] [address] Potassium [Moles/Vol] 4.2 mmol/L Normal 3.7-5.1 [facility] Comment on above: Order Comment: Speci men Type: BLOOD SPECIMENOrdering Facility: [facility] Address: [address] [place] [address] Performed By: #### 2 4323-8, 2532-0 ####[facility] LABCLIA [id number] [place] [address] Protein [Mass/Vol] 7.6 g/dL Normal 6.3-8.0 [facility] Comment on above: Order Comment: Speci men Type: BLOOD SPECIMENOrdering Facility: [facility] Address: [address] [place], [place] [address] Performed By: #### 2 4323-8, 2531-0 ####[facility] LABIA [id number] [place] [address] Sodium [Moles/Vol] 138 mmol/L Normal 136-144 [facility] Comment on above: Order Comment: Speci men Type: BLOOD SPECIMENOrdering Facility: [facility] Address: [address] [place] [address] Performed By: #### 2 4323-8, 2531-0 ####[facility] LABIA [id number] [place] [address] Urea nitrogen [Mass/Vol] 10 mg/dL Normal 9-24 [facility] Comment on above: Order Comment: Speci men Type: BLOOD SPECIMENOrdering Facility: [facility] Address: [address] [place] [address] Performed By: #### 2 4323-8, 2531-0 ####[facility] LABIA [id number] [place] [address] Folate SerPl-ncon 11-29-19 25 Folate [Mass/Vol] 11.6 ng/mL Normal >4.7 [facility] Comment on above: Order Comment: Speci men Type: BLOOD SPECIMENOrdering Facility: [facility] Address: [address] [place] [address] Performed By: #### 2 132-9, 2284-8 ####[facility] LABCLIA [id number] [place] [address] [place] LDH SerPl-cCncon 11-28-2024 LDH [Catalytic activity/Vol] 130 U/L Low 135-225 [facility] Comment on above: Order Comment: Speci men Type: BLOOD SPECIMENOrdering Facility: [facility] Address: [address] [place] [address] Result Comment: Hemo lysis present. The origin [...] indicated. Performed By: #### 2 4323-8, 2532-0 ####[facility] LABCLIA [id number] [place] [address] Nuclear Ab IA Ql (S)on 11-28 LEATHA SCR QUAL Negative Normal Negative [facility] Comment on above: Order Comment: Speci men Type: BLOOD SPECIMENOrdering Facility: [facility] Address: [address] [place] [address] Result Comment: The qualitative antinuclear antibody screen test performed using the following antigens: dsDNA, Chromatin, Ribosomal P, SS-A 60, SS-A 52, SS-B, Sm, SmRNP, CLINIC DIRECTOR A, CLINIC DIRECTOR 68, Scl-70, Deidra-1, and Centromere B. Methodology: Multiplex flow immunoassay. Performed By: #### 4 7383-5 ####[facility] LABCLIA [id number] [place] [address] [place] Vit B12 SerPl-mCncon 025 Cobalamin (Vitamin B12) [Mass/Vol] 306 pg/mL Normal 232-1245 [facility] Comment on above: Order Comment: Speci men Type: BLOOD SPECIMENOrdering Facility: [facility] Address: [address] [place] [address] Performed By: #### 2 132-9, 2284-8 ####[facility] LABIA [id number] [place] [address] [place] Zinc SerPl-mCncon 11-28-2024 Zinc [Mass/Vol] 76 ug/dL Normal 60-120 [facility] Comment on above: Order Comment: Speci men Type: BLOOD SPECIMENOrdering Facility: [facility] Address: [address] [place] [address] Result Comment: This test was developed, and its performance characteristics determined by the [facility] Department of Pathology and Laboratory Medicine. It has not been cleared or approved by the FDA. The [facility] Department of Pathology and Laboratory Medicine is regulated under CLIA as qualified to perform high-complexity testing. This test is used for clinical purposes. It should not be regarded as investigational or for research. Performed By: #### C ABUNDIO, 5763-8 ####[facility] LABCLIA [id number] [place] [address] [place] Bonita 11-25-2024 CNPN Telephone (HEMASA) -------- RUTH SMITH ([id number]) 1970 M Date Time Provider Department 11/25/24 ZAC CROUCH HEMASA During your visit today, we recorded the following information about you: Zac Crouch MD 11/25/2024 10:27 AM Signed Can you please reschedule him to some other time on Monday, or Monday? Thank you. Donavon De La Garza 11/25/2024 1:05 PM Signed Spoke to patient AND rescheduled him on 11/28/2024 at 1 pm. Donavon De La Garza, Zac Sethi MD 11/25/2024 1:30 PM Signed Thank you. [...] by DONAVON DE LA GARZA on 11/25/24 [facility] CNOVon 11-22-2024 CNOV Office Visit (PAINLN ) -------- RUTH SMITH ([id number]) 1970 M Date Time Provider Department 11/22/24 2:00 PM ABRAHAN RINALDI PAINLN During your visit today, we recorded the following information about you: Pulse Weight Height 110/minute 102.1 kg 1.854 m Abrahan Rinaldi MD 11/25/2024 8:23 AM Signed SUBJECTIVE: Mr. Smith a 54 year old male referred by Martha Faulkner APRN.MANAGER [employer] presents with the complaint of low back [...] supervised home exercise program (HEP): No 5. Explosive Technician: No Passive conservative therapy lasting 6 weeks in the last six months (see below) 1. Medical devises: No 2. Acupuncture: No 3. Tens unit: No 4. Prescription pain medication: Yes 5. NSAIDS: Yes OCCUPATIONAL HISTORY: [employer] HISTORY OF TRAUMA/OVERUSE OF AREA: No [...] PAST SURGICAL HISTORY OF back injections EXAMINATION: [id number] OR: Scoliosis: No Pelvic Tilt: No Leg [...] symmetric, nor (more content not included)... Normal [facility] CBC AND AUTO DIFFon 11-13-19 25 ABSOLUTE BASOPHIL 0.0 X10E9/L Normal 0.0-0.2 [facility] Comment on above: Performed By: #### C BCA, CMP #### [facility] ([id number]) [address] [place] [address], [place] [address] ABSOLUTE NEUTROPHIL 5.8 X10E9/L Normal 1.5-6.6 [facility] Comment on above: Performed By: #### C BCA, CMP #### [facility] ([id number]) [address] [place] [address] 87664 Basophils/100 WBC (Bld) 0.5 % Normal [facility] Comment on above: Performed By: #### C BCA, CMP #### [facility] ([id number]) [address] [place] [address] 13071 Eosinophils (Bld) [#/Vol] 0.0 10*3/uL Normal 0.0-0.4 [facility] Comment on above: Performed By: #### C BCA, CMP #### [facility] ([id number]) [address] [place] [address] 55102 Eosinophils/100 WBC (Bld) 0.3 % Normal [facility] Comment on above: Performed By: #### C BCA, CMP #### [facility] ([id number]) [address] [place] [address] 66309 Erythrocyte distribution width (RBC) [Ratio] 15.9 % High 11.5-15.0 [facility] Comment on above: Performed By: #### C BCA, CMP #### [facility] ([id number]) [address] [place] [address] 74837 Hematocrit (Bld) [Volume fraction] 45.0 % Normal 39-49 [facility] Comment on above: Performed By: #### C BCA, CMP #### [facility] ([id number]) [address] [place] [address] 75642 Hemoglobin (Bld) [Mass/Vol] 15.2 g/dL Normal 13.0-17.0 [facility] Comment on above: Performed By: #### C BCA, CMP #### [facility] ([id number]) [address] [place] [address] 13181 Lymphocytes (Bld) [#/Vol] 1.7 10*3/uL Normal 1.0-3.5 [facility] Comment on above: Performed By: #### C BCA, CMP #### [facility] ([id number]) [address] [place] [address] 23664 Lymphocytes/100 WBC (Bld) 20.7 % Normal [facility] Comment on above: Performed By: #### C BCA, CMP #### [facility] ([id number]) [address] [place] [address] 14889 MCH (RBC) [Entitic mass] 27.7 pg Normal 27-34 [facility] Comment on above: Performed By: #### C BCA, CMP #### [facility] ([id number]) [address] [place] [address] 15767 MCHC (RBC) [Mass/Vol] 33.8 g/dL Normal 32-36 [facility] Comment on above: Performed By: #### C BCA, CMP #### [facility] ([id number]) [address] [place] [address] 45049 MCV (RBC) [Entitic vol] 82 fL Normal 80-100 [facility] Comment on above: Performed By: #### C BCA, CMP #### [facility] ([id number]) [address] [place] [address] 60015 Monocytes (Bld) [#/Vol] 0.6 10*3/uL Normal 0-0.9 [facility] Comment on above: Performed By: #### C BCA, CMP #### [facility] ([id number]) [address] [place] [address] 86952 Monocytes/100 WBC (Bld) 7.6 % Normal [facility] Comment on above: Performed By: #### C BCA, CMP #### [facility] ([id number]) [address] [place] [address] 55602 Neutrophils/100 WBC (Bld) 70.9 % Normal [facility] Comment on above: Performed By: #### C BCA, CMP #### [facility] ([id number]) [address] [place] [address] 98520 Platelet mean volume (Bld) [Entitic vol] 11.0 fL Normal 7-12 [facility] Comment on above: Performed By: #### C BCA, CMP #### [facility] ([id number]) [address] [place] [address] 67949 Platelets (Bld) [#/Vol] 101 10*3/uL Low 150-450 [facility] Comment on above: Performed By: #### C LAUREN, CMP #### [facility] ([id number]) [address] [place] [address] 87731 RBC COUNT 5.48 X10E12/L Normal 4.10-5.70 [facility] Comment on above: Performed By: #### C LAUREN, CMP #### [facility] ([id number]) [address] [place] [address] 82246 WBC (Bld) [#/Vol] 8.2 10*3/uL Normal 4.0-11.0 [facility] Comment on above: Performed By: #### C BCA, CMP #### [facility] ([id number]) [address] [place] [address] 64824 COMPREHENSIVE METABOLIC PANE Benito 11-12-2024 Albumin [Mass/Vol] 4.2 g/dL Normal 3.2-5.3 [facility] Comment on above: Performed By: #### C BCA, CMP #### [facility] ([id number]) [address] [place] [address] 80351 ALP [Catalytic activity/Vol] 63 U/L Normal 39-130 [facility] Comment on above: Performed By: #### C BCA, CMP #### [facility] ([id number]) [address] [place] [address] 08290 ALT [Catalytic activity/Vol] 11 U/L Normal 0-40 [facility] Comment on above: Performed By: #### C BCA, CMP #### [facility] ([id number]) [address] [place] [address] 22567 Anion gap [Moles/Vol] 11 mmol/L Normal 5-15 [facility] Comment on above: Performed By: #### C BCA, CMP #### [facility] ([id number]) [address] [place] [address] 32483 AST [Catalytic activity/Vol] 19 U/L Normal 0-41 [facility] Comment on above: Performed By: #### C BCA, CMP #### [facility] ([id number]) [address] [place] [address] 30902 Bilirubin [Mass/Vol] 0.8 mg/dL Normal 0.3-1.2 [facility] Comment on above: Performed By: #### C BCA, CMP #### [facility] ([id number]) [address] [place] [address] 37970 Calcium [Mass/Vol] 9.3 mg/dL Normal 8.5-10.5 [facility] Comment on above: Performed By: #### C BCA, CMP #### [facility] ([id number]) [address] [place] [address] 97163 Chloride [Moles/Vol] 101 mmol/L Normal 98-109 [facility] Comment on above: Performed By: #### C BCA, CMP #### [facility] ([id number]) [address] [place] [address] 92062 CO2 [Moles/Vol] 26 mmol/L Normal 22-32 [facility] Comment on above: Performed By: #### C BCA, CMP #### [facility] ([id number]) [address] [place] [address] 65375 Creatinine [Mass/Vol] 0.86 mg/dL Normal 0.70-1.20 [facility] Comment on above: Result Comment: METH OD TRACEABLE TO IDMS STANDARD Performed By: #### C BCA, CMP #### [facility] ([id number]) [address] [place] [address] 73863 eGFR (CKD-EPI) NON-RACE DEPENDENT >90 Normal >59 [facility] Comment on above: Result Comment: Reported eGFR is based on the CKD-EPI 2020 equation that does not use a race coefficient. Performed By: #### C BCA, CMP #### [facility] ([id number]) [address] [place] [address] 64300 Glucose [Mass/Vol] 147 mg/dL High 65-99 [facility] Comment on above: Performed By: #### C BCA, CMP #### [facility] ([id number]) [address] [place] [address] 89551 Potassium [Moles/Vol] 4.0 mmol/L Normal 3.5-5.0 [facility] Comment on above: Performed By: #### C BCA, CMP #### [facility] ([id number]) [address] [place] [address] 13473 Protein [Mass/Vol] 7.5 g/dL Normal 6.0-8.0 [facility] Comment on above: Performed By: #### C BCA, CMP #### [facility] ([id number]) [address] [place] [address] 13747 Sodium [Moles/Vol] 138 mmol/L Normal 134-146 [facility] Comment on above: Performed By: #### C BCA, CMP #### [facility] ([id number]) [address] [place] [address] Urea nitrogen [Mass/Vol] 15 mg/dL Normal 5-23 [facility] Comment on above: Performed By: #### C LAUREN, [facility] #### [facility] ([id number]) [address] [place] [address] CT ABDOMEN AND PELVIS WO CON Ton [...] Tellez MD on 11/12/2024 4:42 PM Normal [facility] CT LUMBAR RECONSTRUCTIONon 0 11-12-2024 CT LUMBAR [...] Octavio Bagley on 11/12/2024 4:48 PM Normal [facility] URN MACROSCOPIC NURon 2024 BILIRUBIN MANNIE Negative Normal NEG [facility] Comment on above: Performed By: #### N UM ####[facility] ([id number])[address] [place] [address] 69706 BLOOD/HGB MANNIE Negative Normal NEG [facility] Comment on above: Performed By: #### N UM ####[facility] ([id number])[address] [place] [address] 43345 GLUCOSE MANNIE Negative Normal NEG [facility] Comment on above: Performed By: #### N UM ####[facility] ([id number])[address] [place] [address] [place] [address] KETONES MANNIE Negative Normal NEG [facility] Comment on above: Performed By: #### N UM ####[facility] ([id number])[address] [place] [address] [place] [address] LEUKOCYTE ESTERASE MANNIE Negative Normal NEG [facility] Comment on above: Performed By: #### N UM ####[facility] ([id number])[address] [place] [address] 20200 NITRITE MANNIE Negative Normal NEG [facility] Comment on above: Performed By: #### N UM ####[facility] ([id number])[address] [place] [address] 72675 PH MANNIE 7.5 Normal 5.0-8.5 [facility] Comment on above: Performed By: #### N UM ####[facility] ([id number])[address] [place] [address] 16203 PROTEIN MANNIE Negative Normal NEG [facility] Comment on above: Performed By: #### N UM ####[facility] ([id number])[address] [place] [address] 84046 SPECIFIC GRAVITY MANNIE 1.015 Normal 1.003-[address] [place] [address] Comment on above: Performed By: #### N UM ####[facility] ([id number])[address] [place] [address] 10014 UROBILINOGEN MANNIE 1.0 eu/dL Normal <1.1 [facility] Comment on above: Performed By: #### N UM ####[facility] ([id number])[address] [place] [address] [place] [address] XR SPINE LUMBAR 2 OR 3 VWSon [...] intact. Colonic stool burden is moderate. IMPRESSION: Dblk-wg-bwynsbep degenerative changes and slight retrolisthesis L3 on L4. Finalized by Aaron Wright MD on 11/03/2024 1:06 PM Normal [facility] Magnetic resonance imaging r eportOrdered By: Thierry Kuo on 08-27-2024 Study report [facility] [place] [address] MRI Report Signed Patient: Ruth Smith MR #: [id number] : 1970 Acct:[id number] Age/Sex: 54 / M ADM Date: 5 Loc: MR Room: Type: [facility] Attending Dr: Marcell DORMAN Copies to: DANDY Coon~ Ordering Provider: DANDY Coon Date of Service: 08/27/24 MR/MR lumbar spine wo/w con: M54.16,M47.816,M54.50,G8 9.29,Z98.898 ([id number]) XR/XR pre/post mri xray: M54.16,M47.816,M54.50,G8 9.29,Z98.890 MR lumbar spine wo/w con, XR pre/post mri xray 08/27/2024 1:49 PM SIGNS AND SYMPTOMS: ^M54.16,M47.816,M54.50,G 89.29,Z98.898 low back pain COMPARISON: MRI 04/15/2022 Contrast: 20 cc of ProHance was administered for the postcontrast imaging. FINDINGS: X-rays lumbar spine, 2 views: Multilevel degenerative changes throughout the lumbar spine with moderate severe disc space narrowing L4-S1 and L2-3. Nilf-ks-prvzkrwc disc space narrowing elsewhere. Facet of the [...] Thierry Kuo M.D.08/27/2024 3:33 PM Dictation Location: [place] [address] Transcribed By: YZA 08/27/24 1530 Dictated By: Thierry Kuo MD 08/27/24 1519 Signed By: 08/27/24 1533 [facility] Work Phone: XR pre/post mri xrayon 08-27 XR pre/post mri xray [facility] [place] [address] [place], [place] [address] MRI Report Signed Patient: Ruth Smith MR#: [id number] : 1970 Acct:[id number] Age/Sex: 54 / M ADM Date: 08/27/24 Loc: MR Room: Type: [facility] Attending Dr: Marcell DORMAN Copies to: DANDY Coon Ordering Provider: DANDY Coon Date of Service: 08/27/24 MR/MR lumbar spine wo/w con: M54.16,M47.816,M54.50,G8 9.29,Z98.898 ([id number]) XR/XR pre/post mri xray: M54.16,M47.816,M54.50,G8 9.29,Z98.890 MR lumbar spine wo/w con, XR pre/post mri xray 08/27/2024 1:49 PM SIGNS AND SYMPTOMS: M54.16,M47.816,M54.50,G8 9.29,Z98.898 low back pain COMPARISON: MRI 04/15/2022 Contrast: 20 cc of ProHance was administered for the postcontrast imaging. FINDINGS: X-rays lumbar spine, 2 views: Multilevel degenerative changes throughout the lumbar spine with moderate severe disc space narrowing L4-S1 and L2-3. Qqvm-er-sxepetcz disc space narrowing elsewhere. Facet of the [...] Thierry Kuo M.D.08/27/2024 3:33 PM Dictation Location: [place] [address] Transcribed By: [facility] 08/27/24 1533 Dictated By: Thierry Kuo MD 08/27/24 1519 Signed By: 08/27/24 1533 Normal [facility] EMG 2 Extremitieson 08-05-20 24 Normal EMG of the bilateral upper extremities [facility] [place] -12 Nerveson Normal EMG of the bilateral upper extremities [facility] Zhui Xin [facility] $ Large Joint Injection: R g reater trochanteric bursaon 07-25-2024 Ang Figueroa MD 07/25/2024 2:13 PM $ Large Joint Injection: R greater trochanteric bursa on 07/25/2024 2:12 PM Indications: pain Details: 21 G needle, lateral approach Medications: 40 mg triamcinolone acetonide 40 mg/mL; 5 mL BUPivacaine HCl 0.25 % (2.5 mg/mL) MANUALLY TRANSCRIBED RESULTS [facility] XR HIP RT 2-3 VIEWS [...] Tellez MD on 07/25/2024 2:52 PM Normal [facility] XR SPINE LUMB BENDING ONLY 2 -3 [...] Tellez MD on 07/16/2024 4:38 PM Normal [facility] XR KNEE RT 1 OR 2 VWSon [...] Womack MD on 06/21/2024 10:10 AM Normal [facility] $ Large Joint Injection: R k daleeon 06-20-2024 Ang Figueroa MD 2023 2:44 PM $ Large Joint Injection: R knee on 06/20/2024 2:43 PM Indications: pain Details: 21 G needle, anterolateral approach Medications: 40 mg triamcinolone acetonide 40 mg/mL; 5 mL BUPivacaine HCl 0.25 % (2.5 mg/mL) MANUALLY TRANSCRIBED RESULTS [facility] Fibrin D-dimer DDU (PPP) [Ma ss/Vol]on 06-07-2024 D DIMER 309 ng/mL DDU High <255 [facility] Comment on above: Result Comment: Results >=255ng/mL [...] level. Performed By: #### 4 8066-5 #### [facility] ([id number]) [address] [place] [address] XR KNEE RT 1 OR 2 VWSon [...] Womack MD on 06/03/2024 3:54 PM Normal [facility] Fibrin D-dimer DDU (PPP) [Ma ss/Vol]on 05-07-2024 D DIMER 260 ng/mL DDU High <255 [facility] Comment on above: Result Comment: Results >=255ng/mL [...] level. Performed By: #### 4 8066-5 #### [facility] ([id number]) [address] [place] [address] XR HIP RT 2-3 VIEWS W OR [...] Trivedi DO on 05/07/2024 12:38 PM Normal [facility] XR FEMUR RT 2+ VIEWSon 04-18 XR FEMUR RT 2+ VIEWS XR FEMUR RT 2+ VIEW S Comparison March 14 XR FEMUR RT 2+ VIEWS Periprosthetic fracture of hip, subsequent encounter Impression: 1. Stable appearance of fracture morphology and transfixing hardware. Stable positioning and alignment. Finalized by Leonel Ferguson MD on 04/18/2024 5:45 PM Normal [facility] XR PELVIS 1 OR 2 VWSon 04-18 [...] Ferguson MD on 04/18/2024 5:53 PM Normal [facility] XR FEMUR RT 2+ VIEWSon 03-15 XR [...] Ortega MD on 03/15/2024 6:12 PM Normal [facility] XR FEMUR RT 2+ VIEWSon 02-22 XR FEMUR RT 2+ VIEWS XR FEMUR RT 2+ VIEW S Comparison February 08 XR FEMUR RT 2+ VIEWS Closed displaced intertrochanteric fracture of right femur with routine healing, subsequent encounter Impression: 1. Stable appearance of fracture morphology and transfixing hardware. Stable positioning and alignment. Finalized by Leonel Ferguson MD on 02/23/2024 12:36 PM Normal [facility] Glucose Glucometer (BldC) [M ass/Vol]on 02-09-2024 Glucose [Mass/Vol] 139 mg/dL High 65-99 [facility] Glucose [Mass/Vol] 112 mg/dL High 65-99 [facility] XR FEMUR RT 2+ VIEWSon 02-08 XR FEMUR RT 2+ VIEWS XR FEMUR RT 2+ VIEW S XR FEMUR RT 2+ VIEWS CLINICAL INFORMATION: Recent surgery for fracture. Pain. COMPARISON: 01/30/24. IMPRESSION: * Intramedullary nail stabilizing proximal femur fracture, anatomic alignment. Postoperative changes in the soft tissues. Finalized by Dionte Ocampo MD on 02/09/2024 10:30 AM Normal [facility] BASIC METABOLIC PANLon 06-27 -2024 Anion gap [Moles/Vol] 10 mmol/L Normal 5-[address] [facility] Comment on above: Performed By: #### P INR, 73829-4, 4679-7, FEPR, 6793-4, 2132- 9, 2276-4, 2284-8, 2731-8, 20924-6 #### [facility] ([id number]) [address], [address] [place] [address] Calcium [Mass/Vol] 8.7 mg/dL Normal 8.5-10.5 [facility] Comment on above: Performed By: #### P INR, 18108-2, 4679-7, FEPR, 6793-4, 2132- 9, 2276-4, 2284-8, 2731-8, 88416-0 #### [facility] ([id number]) [address], [address] [place] [address] Chloride [Moles/Vol] 103 mmol/L Normal 98-109 [facility] Comment on above: Performed By: #### P INR, 21647-5, 4679-7, FEPR, 6793-4, 2132- 9, 2276-4, 2284-8, 2731-8, 13934-7 #### [facility] ([id number]) [address], [address] [place] [address] CO2 [Moles/Vol] 25 mmol/L Normal 22-32 [facility] Comment on above: Performed By: #### P INR, 39553-5, 4679-7, FEPR, 6793-4, 2132- 9, 2276-4, 2284-8, 2731-8, 77735-6 #### [facility] ([id number]) [address] [place] [address] Creatinine [Mass/Vol] 0.63 mg/dL Normal 0.60-1.[address] [facility] Comment on above: Result Comment: METH OD TRACEABLE TO IDMS STANDARD Performed By: #### P INR, 29593-4, 4679-7, FEPR, 6793-4, 2132-9, 2276-4, 2284-8, 2731-8, 64596-1 #### [facility] ([id number]) [address], [address] [place] [address] eGFR (CKD-EPI) NON-RACE DEPENDENT >90 Normal >59 [facility] Comment on above: Result Comment: Reported eGFR is based on the CKD-EPI 2020 equation that does not use a race coefficient. Performed By: #### P INR, 01522-3, 4679-7, FEPR, 6793-4, 2132-9, 2276-4, 2284-8, 2731-8, 36642-1 #### [facility] ([id number]) [address], [address] [place] [address] Glucose [Mass/Vol] 122 mg/dL High 65-99 [facility] Comment on above: Performed By: #### P INR, 21772-5, 4679-7, FEPR, 6793-4, 2132- 9, 2276-4, 2284-8, 2731-8, 93707-6 #### [facility] ([id number]) [address], [address] [place] [address] Potassium [Moles/Vol] 3.8 mmol/L Normal 3.5-5.[address] [facility] Comment on above: Performed By: #### P INR, 08924-3, 4679-7, FEPR, 6793-4, 2132- 9, 2276-4, 2284-8, 2731-8, 84978-6 #### [facility] ([id number]) [address], [address] [place] [address] Sodium [Moles/Vol] 138 mmol/L Normal 134-146 [facility] Comment on above: Performed By: #### P INR, 10885-0, 4679-7, FEPR, 6793-4, 2132- 9, 2276-4, 2284-8, 2731-8, 01203-5 #### [facility] ([id number]) [address], [address] [place] [address] Urea nitrogen [Mass/Vol] 5 mg/dL Normal 5-23 [facility] Comment on above: Performed By: #### P INR, 92478-9, 4679-7, FEPR, 6793-4, 2132- 9, 2276-4, 2284-8, 2731-8, 85479-5 #### [facility] ([id number]) [address], [address] [place] [address] COMPLETE BLOOD COUNTon 02-07 Erythrocyte distribution width (RBC) [Ratio] 16.1 % High 11.5-15.0 [facility] Comment on above: Performed By: #### P INR, 80865-7, 4679-7, FEPR, 6793-4, 2132- 9, 2276-4, 2284-8, 2731-8, 16001-2 #### [facility] ([id number]) [address], [address] [place] [address] Hematocrit (Bld) [Volume fraction] 26.6 % Low 39-49 [facility] Comment on above: Performed By: #### P INR, 34077-1, 4679-7, FEPR, 6793-4, 2132- 9, 2276-4, 2284-8, 2731-8, 93269-6 #### [facility] ([id number]) [address], [address] [place] [address] Hemoglobin (Bld) [Mass/Vol] 8.9 g/dL Low 13.0-17.0 [facility] Comment on above: Performed By: #### P INR, 98171-5, 4679-7, FEPR, 6793-4, 2132- 9, 2276-4, 2284-8, 2731-8, 73403-2 #### [facility] ([id number]) [address], [address] [place] [address] MCH (RBC) [Entitic mass] 28.6 pg Normal 27-34 [facility] Comment on above: Performed By: #### P INR, 20691-5, 4679-7, FEPR, 6793-4, 2132- 9, 2276-4, 2284-8, 2731-8, 87979-6 #### [facility] ([id number]) [address], [address] [place] [address] MCHC (RBC) [Mass/Vol] 33.3 g/dL Normal 32-[address] [facility] Comment on above: Performed By: #### P INR, 70118-3, 4679-7, FEPR, 6793-4, 2132- 9, 2276-4, 2284-8, 2731-8, 35924-0 #### [facility] ([id number]) [address], [address] [place] [address] MCV (RBC) [Entitic vol] 86 fL Normal 80-100 [facility] Comment on above: Performed By: #### P INR, 36455-7, 4679-7, FEPR, 6793-4, 2132- 9, 2276-4, 2284-8, 2731-8, 50687-9 #### [facility] ([id number]) [address], [address] [place] [address] Platelet mean volume (Bld) [Entitic vol] 9.4 fL Normal 7-12 [facility] Comment on above: Performed By: #### P INR, 17978-0, 4679-7, FEPR, 6793-4, 2132- 9, 2276-4, 2284-8, 2731-8, 75557-2 #### [facility] ([id number]) [address], [address] [place] [address] Platelets (Bld) [#/Vol] 202 10*3/uL Normal 150-450 [facility] Comment on above: Performed By: #### P INR, 38837-0, 4679-7, FEPR, 6793-4, 2132- 9, 2276-4, 2284-8, 2731-8, 27424-2 #### [facility] ([id number]) [address], [address] [place] [address] RBC COUNT 3.10 X10E12/L Low 4.10-5.70 [facility] Comment on above: Performed By: #### P INR, 06248-0, 4679-7, FEPR, 6793-4, 2132- 9, 2276-4, 2284-8, 2731-8, 08911-5 #### [facility] ([id number]) [address], [address] [place] [address] WBC (Bld) [#/Vol] 3.8 10*3/uL Low 4.0-11.0 [facility] Comment on above: Performed By: #### P INR, 46017-0, 4679-7, FEPR, 6793-4, 2132- 9, 2276-4, 2284-8, 2731-8, 40837-2 #### [facility] ([id number]) [address], [address] [place] [address] Glucose Glucometer (BldC) [M ass/Vol]on 02-08-2024 Glucose [Mass/Vol] 117 mg/dL High 65- [facility] Glucose [Mass/Vol] 121 mg/dL High 65- [facility] Glucose [Mass/Vol] 137 mg/dL High 65- [facility] Glucose [Mass/Vol] 134 mg/dL High 65-99 [facility] Glucose Glucometer (BldC) [M ass/Vol]on 02-07-2024 Glucose [Mass/Vol] 144 mg/dL High 65-99 [facility] Glucose [Mass/Vol] 154 mg/dL High - [facility] Glucose [Mass/Vol] 121 mg/dL High 65-99 [facility] Glucose [Mass/Vol] 176 mg/dL High 65-99 [facility] Glucose Glucometer (BldC) [M ass/Vol]on 02-06-2024 Glucose [Mass/Vol] 116 mg/dL High 65-99 [facility] Glucose [Mass/Vol] 100 mg/dL High 65-99 [facility] Glucose [Mass/Vol] 112 mg/dL High 65-99 [facility] Glucose [Mass/Vol] 118 mg/dL High 65-99 [facility] BASIC METABOLIC PANLon 02-04 Anion gap [Moles/Vol] 8 mmol/L Normal 5-[address] [facility] Comment on above: Performed By: #### P INR, 64728-6, 4679-7, FEPR, 6793-4, 2132- 9, 2276-4, 2284-8, 2731-8, 40560-6 #### [facility] ([id number]) [address], [address] [place] [address] Calcium [Mass/Vol] 8.5 mg/dL Normal 8.5-10.5 [facility] Comment on above: Performed By: #### P INR, 00083-3, 4679-7, FEPR, 6793-4, 2132- 9, 2276-4, 2284-8, 2731-8, 64973-1 #### [facility] ([id number]) [address], [address] [place] [address] Chloride [Moles/Vol] 101 mmol/L Normal 98-109 [facility] Comment on above: Performed By: #### P INR, 57501-6, 4679-7, FEPR, 6793-4, 2132- 9, 2276-4, 2284-8, 2731-8, 81891-7 #### [facility] ([id number]) [address], [address] [place] [address] CO2 [Moles/Vol] 28 mmol/L Normal 22-32 [facility] Comment on above: Performed By: #### P INR, 87768-8, 4679-7, FEPR, 6793-4, 2132- 9, 2276-4, 2284-8, 2731-8, 10539-9 #### [facility] ([id number]) [address], [address] [place] [address] Creatinine [Mass/Vol] 0.60 mg/dL Normal 0.60-1.[address] [facility] Comment on above: Result Comment: METH OD TRACEABLE TO IDMS STANDARD Performed By: #### P INR, 01264-4, 4679-7, FEPR, 6793-4, 2132-9, 2276-4, 2284-8, 2731-8, 27353-2 #### [facility] ([id number]) [address], [address] [place] [address] eGFR (CKD-EPI) NON-RACE DEPENDENT >90 Normal >59 [facility] Comment on above: Result Comment: Reported eGFR is based on the CKD-EPI 2020 equation that does not use a race coefficient. Performed By: #### P INR, 32488-0, 4679-7, FEPR, 6793-4, 2132-9, 2276-4, 2284-8, 2731-8, 41274-5 #### [facility] ([id number]) [address], [address] [place] [address] Glucose [Mass/Vol] 130 mg/dL High 65-99 [facility] Comment on above: Performed By: #### P INR, 39935-9, 4679-7, FEPR, 6793-4, 2132- 9, 2276-4, 2284-8, 2731-8, 01098-0 #### [facility] ([id number]) [address], [address] [place] [address] Potassium [Moles/Vol] 3.5 mmol/L Normal 3.5-5.[address] [facility] Comment on above: Performed By: #### P INR, 51996-0, 4679-7, FEPR, 6793-4, 2132- 9, 2276-4, 2284-8, 2731-8, 15852-8 #### [facility] ([id number]) [address], [address] [place] [address] Sodium [Moles/Vol] 137 mmol/L Normal 134-146 [facility] Comment on above: Performed By: #### P INR, 23671-9, 4679-7, FEPR, 6793-4, 2132- 9, 2276-4, 2284-8, 2731-8, 70595-6 #### [facility] ([id number]) [address], [address] [place] [address] Urea nitrogen [Mass/Vol] 6 mg/dL Normal 5-23 [facility] Comment on above: Performed By: #### P INR, 23766-0, 4679-7, FEPR, 6793-4, 2132- 9, 2276-4, 2284-8, 2731-8, 82559-5 #### [facility] ([id number]) [address], [address] [place] [address] COMPLETE BLOOD COUNTon 02-04 Erythrocyte distribution width (RBC) [Ratio] 15.9 % High 11.5-15.0 [facility] Comment on above: Performed By: #### P INR, 21156-7, 4679-7, FEPR, 6793-4, 2132- 9, 2276-4, 2284-8, 2731-8, 38484-7 #### [facility] ([id number]) [address], [address] [place] [address] Hematocrit (Bld) [Volume fraction] 27.6 % Low 39-49 [facility] Comment on above: Performed By: #### P INR, 59428-2, 4679-7, FEPR, 6793-4, 2132- 9, 2276-4, 2284-8, 2731-8, 62788-4 #### [facility] ([id number]) [address], [address] [place] [address] Hemoglobin (Bld) [Mass/Vol] 9.2 g/dL Low 13.0-17.0 [facility] Comment on above: Performed By: #### P INR, 45935-1, 4679-7, FEPR, 6793-4, 2132- 9, 2276-4, 2284-8, 2731-8, 61788-7 #### [facility] ([id number]) [address], [address] [place] [address] MCH (RBC) [Entitic mass] 28.5 pg Normal 27-34 [facility] Comment on above: Performed By: #### P INR, 31935-1, 4679-7, FEPR, 6793-4, 2132- 9, 2276-4, 2284-8, 2731-8, 00690-5 #### [facility] ([id number]) [address], [address] [place] [address] MCHC (RBC) [Mass/Vol] 33.5 g/dL Normal 32-[address] [facility] Comment on above: Performed By: #### P INR, 86079-6, 4679-7, FEPR, 6793-4, 2132- 9, 2276-4, 2284-8, 2731-8, 98264-1 #### [facility] ([id number]) [address], [address] [place] [address] MCV (RBC) [Entitic vol] 85 fL Normal 80-100 [facility] Comment on above: Performed By: #### P INR, 65435-8, 4679-7, FEPR, 6793-4, 2132- 9, 2276-4, 2284-8, 2731-8, 48648-1 #### [facility] ([id number]) [address], [address] [place] [address] Platelet mean volume (Bld) [Entitic vol] 9.5 fL Normal 7-12 [facility] Comment on above: Performed By: #### P INR, 89540-5, 4679-7, FEPR, 6793-4, 2132- 9, 2276-4, 2284-8, 2731-8, 18919-2 #### [facility] ([id number]) [address], [address] [place] [address] Platelets (Bld) [#/Vol] 215 10*3/uL Normal 150-450 [facility] Comment on above: Performed By: #### P INR, 63909-9, 4679-7, FEPR, 6793-4, 2132- 9, 2276-4, 2284-8, 2731-8, 43033-9 #### [facility] ([id number]) [address], [address] [place] [address] RBC COUNT 3.25 X10E12/L Low 4.10-5.70 [facility] Comment on above: Performed By: #### P INR, 58338-0, 4679-7, FEPR, 6793-4, 2132- 9, 2276-4, 2284-8, 2731-8, 75626-8 #### [facility] ([id number]) [address], [address] [place] [address] WBC (Bld) [#/Vol] 4.9 10*3/uL Normal 4.0-11.0 [facility] Comment on above: Performed By: #### P INR, 50425-9, 4679-7, FEPR, 6793-4, 2132- 9, 2276-4, 2284-8, 2731-8, 73659-6 #### [facility] ([id number]) [address], [address] [place] [address] Glucose Glucometer (BldC) [M ass/Vol]on 02-05-2024 Glucose [Mass/Vol] 95 mg/dL Normal 65-99 [facility] Glucose [Mass/Vol] 102 mg/dL High 65-99 [facility] Glucose [Mass/Vol] 143 mg/dL High 65-99 [facility] Glucose [Mass/Vol] 156 mg/dL High 65-99 [facility] COMPLETE BLOOD COUNTon 02-03 Erythrocyte distribution width (RBC) [Ratio] 15.8 % High 11.5-15.0 [facility] Comment on above: Performed By: #### P INR, 34930-5, 4679-7, FEPR, 6793-4, 2132- 9, 2276-4, 2284-8, 2731-8, 30274-3 #### [facility] ([id number]) [address], [address] [place] [address] Hematocrit (Bld) [Volume fraction] 31.7 % Low 39-49 [facility] Comment on above: Performed By: #### P INR, 12672-2, 4679-7, FEPR, 6793-4, 2132- 9, 2276-4, 2284-8, 2731-8, 18823-9 #### [facility] ([id number]) [address], [address] [place] [address] Hemoglobin (Bld) [Mass/Vol] 10.6 g/dL Low 13.0-17.0 [facility] Comment on above: Performed By: #### P INR, 13048-9, 4679-7, FEPR, 6793-4, 2132- 9, 2276-4, 2284-8, 2731-8, 29186-0 #### [facility] ([id number]) [address], [address] [place] [address] MCH (RBC) [Entitic mass] 28.2 pg Normal 27-34 [facility] Comment on above: Performed By: #### P INR, 99263-5, 4679-7, FEPR, 6793-4, 2132- 9, 2276-4, 2284-8, 2731-8, 99591-9 #### [facility] ([id number]) [address], [address] [place] [address] MCHC (RBC) [Mass/Vol] 33.4 g/dL Normal 32-[address] [facility] Comment on above: Performed By: #### P INR, 49922-8, 4679-7, FEPR, 6793-4, 2132- 9, 2276-4, 2284-8, 2731-8, 22778-9 #### [facility] ([id number]) [address], [address] [place] [address] MCV (RBC) [Entitic vol] 85 fL Normal 80-100 [facility] Comment on above: Performed By: #### P INR, 31666-6, 4679-7, FEPR, 6793-4, 2132- 9, 2276-4, 2284-8, 2731-8, 93687-7 #### [facility] ([id number]) [address], [address] [place] [address] Platelet mean volume (Bld) [Entitic vol] 9.6 fL Normal 7-12 [facility] Comment on above: Performed By: #### P INR, 22585-3, 4679-7, FEPR, 6793-4, 2132- 9, 2276-4, 2284-8, 2731-8, 16538-1 #### [facility] ([id number]) [address], [address] [place] [address] Platelets (Bld) [#/Vol] 314 10*3/uL Normal 150-450 [facility] Comment on above: Performed By: #### P INR, 75032-0, 4679-7, FEPR, 6793-4, 2132- 9, 2276-4, 2284-8, 2731-8, 41996-6 #### [facility] ([id number]) [address], [address] [place] [address] RBC COUNT 3.74 X10E12/L Low 4.10-5.70 [facility] Comment on above: Performed By: #### P INR, 86798-9, 4679-7, FEPR, 6793-4, 2132- 9, 2276-4, 2284-8, 2731-8, 97699-5 #### [facility] ([id number]) [address], [address] [place] [address] WBC (Bld) [#/Vol] 6.6 10*3/uL Normal 4.0-11.0 [facility] Comment on above: Performed By: #### P INR, 03137-6, 4679-7, FEPR, 6793-4, 2132- 9, 2276-4, 2284-8, 2731-8, 26760-1 #### [facility] ([id number]) [facility] [place] [address] COMPREHENSIVE METABOLIC PANE [facility] 02-04-2024 Albumin [Mass/Vol] 3.4 g/dL Normal 3.2-5.3 [facility] Comment on above: Performed By: #### P INR, 91081-9, 4679-7, FEPR, 6793-4, 2132- 9, 2276-4, 2284-8, 2731-8, 22577-8 #### [facility] ([id number]) [address], [address] [place] [address] ALP [Catalytic activity/Vol] 88 U/L Normal 39-130 [facility] Comment on above: Performed By: #### P INR, 89050-2, 4679-7, FEPR, 6793-4, 2132- 9, 2276-4, 2284-8, 2731-8, 47704-6 #### [facility] ([id number]) [address], [address] [place] [address] ALT [Catalytic activity/Vol] 11 U/L Normal 0-40 [facility] Comment on above: Performed By: #### P INR, 18842-9, 4679-7, FEPR, 6793-4, 2132- 9, 2276-4, 2284-8, 2731-8, 45860-9 #### [facility] ([id number]) [address], [address] [place] [address] Anion gap [Moles/Vol] 12 mmol/L Normal 5-[address] [facility] Comment on above: Performed By: #### P INR, 51703-2, 4679-7, FEPR, 6793-4, 2132- 9, 2276-4, 2284-8, 2731-8, 11221-8 #### [facility] ([id number]) [address], [address] [place] [address] AST [Catalytic activity/Vol] 17 U/L Normal 0-41 [facility] Comment on above: Performed By: #### P INR, 71329-8, 4679-7, FEPR, 6793-4, 2132- 9, 2276-4, 2284-8, 2731-8, 14142-8 #### [facility] ([id number]) [address], [address] [place] [address] Bilirubin [Mass/Vol] 1.5 mg/dL High 0.3-1.2 [facility] Comment on above: Performed By: #### P INR, 92155-0, 4679-7, FEPR, 6793-4, 2132- 9, 2276-4, 2284-8, 2731-8, 66183-4 #### [facility] ([id number]) [address], [address] [place] [address] Calcium [Mass/Vol] 9.1 mg/dL Normal 8.5-10.5 [facility] Comment on above: Performed By: #### P INR, 37677-3, 4679-7, FEPR, 6793-4, 2132- 9, 2276-4, 2284-8, 2731-8, 97517-2 #### [facility] ([id number]) [address], [address] [place] [address] Chloride [Moles/Vol] 98 mmol/L Normal 98-109 [facility] Comment on above: Performed By: #### P INR, 25971-8, 4679-7, FEPR, 6793-4, 2132- 9, 2276-4, 2284-8, 2731-8, 71874-2 #### [facility] ([id number]) [address], [address] [place] [address] CO2 [Moles/Vol] 27 mmol/L Normal 22-32 [facility] Comment on above: Performed By: #### P INR, 88348-6, 4679-7, FEPR, 6793-4, 2132- 9, 2276-4, 2284-8, 2731-8, 99799-3 #### [facility] ([id number]) [address], [address] [place] [address] Creatinine [Mass/Vol] 0.65 mg/dL Normal 0.60-1.[address] [facility] Comment on above: Result Comment: METH OD TRACEABLE TO IDMS STANDARD Performed By: #### P INR, 26835-3, 4679-7, FEPR, 6793-4, 2132-9, 2276-4, 2284-8, 2731-8, 33851-7 #### [facility] ([id number]) [address], [address] [place] [address] eGFR (CKD-EPI) NON-RACE DEPENDENT >90 Normal >59 [facility] Comment on above: Result Comment: Reported eGFR is based on the CKD-EPI 2020 equation that does not use a race coefficient. Performed By: #### P INR, 04790-3, 4679-7, FEPR, 6793-4, 2132-9, 2276-4, 2284-8, 2731-8, 22353-6 #### [facility] ([id number]) [address], [address] [place] [address] Glucose [Mass/Vol] 151 mg/dL High 65-99 [facility] Comment on above: Performed By: #### P INR, 77129-2, 4679-7, FEPR, 6793-4, 2132- 9, 2276-4, 2284-8, 2731-8, 50869-9 #### [facility] ([id number]) [address], [address] [place] [address] Potassium [Moles/Vol] 3.6 mmol/L Normal 3.5-5.[address] [facility] Comment on above: Performed By: #### P INR, 56988-6, 4679-7, FEPR, 6793-4, 2132- 9, 2276-4, 2284-8, 2731-8, 53374-7 #### [facility] ([id number]) [address], [address] [place] [address] Protein [Mass/Vol] 6.5 g/dL Normal 6.0-8.0 [facility] Comment on above: Performed By: #### P INR, 64388-8, 4679-7, FEPR, 6793-4, 2132- 9, 2276-4, 2284-8, 2731-8, 46942-8 #### [facility] ([id number]) [address], [address] [place] [address] Sodium [Moles/Vol] 137 mmol/L Normal 134-146 [facility] Comment on above: Performed By: #### P INR, 89954-3, 4679-7, FEPR, 6793-4, 2132- 9, 2276-4, 2284-8, 2731-8, 10777-5 #### [facility] ([id number]) [address], [address] [place] [address] Urea nitrogen [Mass/Vol] 10 mg/dL Normal 5-23 [facility] Comment on above: Performed By: #### P INR, 53938-3, 4679-7, FEPR, 6793-4, 2131- 9, 2276-4, 2284-8, 2731-8, 97113-0 #### [facility] ([id number]) [address], [address] [place] [address] Glucose Glucometer (BldC) [M ass/Vol]on 02-04-2024 Glucose [Mass/Vol] 104 mg/dL High 65-99 [facility] Glucose [Mass/Vol] 240 mg/dL High 65-99 [facility] Glucose [Mass/Vol] 157 mg/dL High 65-99 [facility] Glucose [Mass/Vol] 163 mg/dL High 65-99 [facility] Lipid 1996 panelon Cholesterol [Mass/Vol] 148 mg/dL Low 150-200 [facility] Comment on above: Performed By: #### P INR, 15159-3, 4679-7, FEPR, 6793-4, 2- 9, 2276-4, 2284-8, 2731-8, 86328-1 #### [facility] ([id number]) [address], [address] [place] [address] Cholesterol in HDL [Mass/Vol] 19 mg/dL Low >39 [facility] Comment on above: Result Comment: HDL <40 mg/dL - High Risk HDL > or = 40mg/dL- Desirable HDL >60 mg/dL - Negative Risk Performed By: #### P INR, 25306-8, 4679-7, FEPR, 6793-4, 2132-9, 2276-4, 2284-8, 2731-8, 28792-5 #### [facility] ([id number]) [address], [address] [place] [address] Cholesterol in LDL [Mass/Vol] 80 mg/dL Normal <130 [facility] Comment on above: Result Comment: LDL <100 mg/dL - Desirable LDL >160 mg/dL - High Risk Performed By: #### P INR, 22393-1, 4679-7, FEPR, 6793-4, 2132-9, 2276-4, 2284-8, 2731-8, 38937-0 #### [facility] ([id number]) [address], [address] [place] [address] Cholesterol in VLDL [Mass/Vol] 49 mg/dL High 0-30 [facility] Comment on above: Performed By: #### P INR, 49025-6, 4679-7, FEPR, 6793-4, 2132- 9, 2276-4, 2284-8, 2731-8, 14309-8 #### [facility] ([id number]) [address], [address] [place] [address] CHOLESTEROL:HDL 7.8 High 1.0-5.0 [facility] Comment on above: Performed By: #### P INR, 93356-3, 4679-7, FEPR, 6793-4, 2132- 9, 2276-4, 2284-8, 2731-8, 01413-0 #### [facility] ([id number]) [address], [address] [place] [address] Triglyceride [Mass/Vol] 244 mg/dL High 27-150 [facility] Comment on above: Performed By: #### P INR, 64651-3, 4679-7, FEPR, 6793-4, 2132- 9, 2276-4, 2284-8, 2731-8, 19913-6 #### [facility] ([id number]) [address], [address] [place] [address] MAGNESIUMon 02-04-2024 Magnesium [Mass/Vol] 1.5 mg/dL Low 1.8-2.6 [facility] Comment on above: Performed By: #### P INR, 46877-1, 4679-7, FEPR, 6793-4, 2132- 9, 2276-4, 2284-8, 2731-8, 57501-1 #### [facility] ([id number]) [address], [address] [place] [address] BASIC METABOLIC PANLon 02-02 Anion gap [Moles/Vol] 10 mmol/L Normal 5-[address] [facility] Comment on above: Performed By: #### P INR, 76259-2, 4679-7, FEPR, 6793-4, 2132- 9, 2276-4, 2284-8, 2731-8, 96394-2 #### [facility] ([id number]) [address], [address] [place] [address] Calcium [Mass/Vol] 8.8 mg/dL Normal 8.5-10.5 [facility] Comment on above: Performed By: #### P INR, 06121-2, 4679-7, FEPR, 6793-4, 2132- 9, 2276-4, 2284-8, 2731-8, 24104-8 #### [facility] ([id number]) [address], [address] [place] [address] Chloride [Moles/Vol] 98 mmol/L Normal 98-109 [facility] Comment on above: Performed By: #### P INR, 39420-9, 4679-7, FEPR, 6793-4, 2132- 9, 2276-4, 2284-8, 2731-8, 23529-5 #### [facility] ([id number]) [address], [address] [place] [address] CO2 [Moles/Vol] 26 mmol/L Normal 22-32 [facility] Comment on above: Performed By: #### P INR, 52513-9, 4679-7, FEPR, 6793-4, 2132- 9, 2276-4, 2284-8, 2731-8, 82957-3 #### [facility] ([id number]) [address], [address] [place] [address] Creatinine [Mass/Vol] 0.59 mg/dL Low 0.60-1.[address] [facility] Comment on above: Result Comment: METH OD TRACEABLE TO IDMS STANDARD Performed By: #### P INR, 44377-6, 4679-7, FEPR, 6793-4, 2132-9, 2276-4, 2284-8, 2731-8, 12641-0 #### [facility] ([id number]) [address], [address] [place] [address] eGFR (CKD-EPI) NON-RACE DEPENDENT >90 Normal >59 [facility] Comment on above: Result Comment: Reported eGFR is based on the CKD-EPI 2020 equation that does not use a race coefficient. Performed By: #### P INR, 57805-1, 4679-7, FEPR, 6793-4, 2132-9, 2276-4, 2284-8, 2731-8, 28527-9 #### [facility] ([id number]) [address], [address] [place] [address] Glucose [Mass/Vol] 156 mg/dL High 65-99 [facility] Comment on above: Performed By: #### P INR, 45296-5, 4679-7, FEPR, 6793-4, 2132- 9, 2276-4, 2284-8, 2731-8, 44887-2 #### [facility] ([id number]) [address], [address] [place] [address] Potassium [Moles/Vol] 3.7 mmol/L Normal 3.5-5.[address] [facility] Comment on above: Performed By: #### P INR, 39951-9, 4679-7, FEPR, 6793-4, 2132- 9, 2276-4, 2284-8, 2731-8, 91283-5 #### [facility] ([id number]) [address], [address] [place] [address] Sodium [Moles/Vol] 134 mmol/L Normal 134-146 [facility] Comment on above: Performed By: #### P INR, 98282-0, 4679-7, FEPR, 6793-4, 2- 9, 2276-4, 2284-8, 2731-8, 08368-1 #### [facility] ([id number]) [address], [address] [place] [address] Urea nitrogen [Mass/Vol] 11 mg/dL Normal 5-23 [facility] Comment on above: Performed By: #### P INR, 47096-9, 4679-7, FEPR, 6793-4, 2132- 9, 2276-4, 2284-8, 2731-8, 61651-4 #### [facility] ([id number]) [address], [address] [place] [address] Basic Metabolic Panelon 06-2 Anion gap [Moles/Vol] 10 mmol/L 5 - 15 mmol/L [facility] Calcium [Mass/Vol] 8.8 mg/dL 8.5 - 10. 5 mg/dL [facility] Chloride [Moles/Vol] 98 mmol/L 98 - 10 9 mmol/L [facility] CO2 [Moles/Vol] 26 mmol/L 22 - 32 mmol/L [facility] Creatinine [Mass/Vol] 0.59 mg/dL Low 0.60 - 1.30 mg/dL [facility] Comment on above: METHOD TRACEABLE TO IDWA STANDARD eGFR (CKD-EPI)non-race dependent - PINF [facility] Comment on above: Reported eGFR is based on the CKD-EPI 2020 equation that does not use a race coefficient. Glucose [Mass/Vol] 156 mg/dL High 65 - 99 mg/dL [facility] Interpretation and review of laboratory results Abnormal [facility] Potassium [Moles/Vol] 3.7 mmol/L 3.5 - 5.0 mmol/L [facility] Sodium [Moles/Vol] 134 mmol/L 134 - 146 mmol/L [facility] Urea nitrogen [Mass/Vol] 11 mg/dL 5 - 23 mg/dL [facility] CBC AND AUTO DIFFon 02-03-20 ABSOLUTE BASOPHIL 0.1 X10E9/L Normal 0.0-0.2 [facility] Comment on above: Performed By: #### P INR, 60616-9, 4679-7, FEPR, 6793-4, 2132- 9, 2276-4, 2284-8, 2731-8, 53841-4 #### [facility] ([id number]) [address], [address] [place] [address] ABSOLUTE NEUTROPHIL 4.5 X10E9/L Normal 1.5-6.6 [facility] Comment on above: Performed By: #### P INR, 75376-7, 4679-7, FEPR, 6793-4, 2132- 9, 2276-4, 2284-8, 2731-8, 20211-6 #### [facility] ([id number]) [address], [address] [place] [address] Basophils/100 WBC (Bld) 0.9 % Normal [facility] Comment on above: Performed By: #### P INR, 54394-2, 4679-7, FEPR, 6793-4, 2132- 9, 2276-4, 2284-8, 2731-8, 92582-3 #### [facility] ([id number]) [address], [address] [place] [address] Eosinophils (Bld) [#/Vol] 0.1 10*3/uL Normal 0.0-0.4 [facility] Comment on above: Performed By: #### P INR, 78921-4, 4679-7, FEPR, 6793-4, 2132- 9, 2276-4, 2284-8, 2731-8, 21936-1 #### [facility] ([id number]) [address], [address] [place] [address] Eosinophils/100 WBC (Bld) 0.8 % Normal [facility] Comment on above: Performed By: #### P INR, 28693-3, 4679-7, FEPR, 6793-4, 2132- 9, 2276-4, 2284-8, 2731-8, 40134-9 #### [facility] ([id number]) [address], [address] [place] [address] Erythrocyte distribution width (RBC) [Ratio] 15.8 % High 11.5-15.0 [facility] Comment on above: Performed By: #### P INR, 11463-8, 4679-7, FEPR, 6793-4, 2132- 9, 2276-4, 2284-8, 2731-8, 83676-4 #### [facility] ([id number]) [address], [address] [place] [address] Hematocrit (Bld) [Volume fraction] 29.1 % Low 39-49 [facility] Comment on above: Performed By: #### P INR, 21578-0, 4679-7, FEPR, 6793-4, 2132- 9, 2276-4, 2284-8, 2731-8, 34975-7 #### [facility] ([id number]) [address], [address] [place] [address] Hemoglobin (Bld) [Mass/Vol] 9.9 g/dL Low 13.0-17.0 [facility] Comment on above: Performed By: #### P INR, 40783-6, 4679-7, FEPR, 6793-4, 2132- 9, 2276-4, 2284-8, 2731-8, 03348-6 #### [facility] ([id number]) [address], [address] [place] [address] Lymphocytes (Bld) [#/Vol] 1.2 10*3/uL Normal 1.0-3.5 [facility] Comment on above: Performed By: #### P INR, 23243-4, 4679-7, FEPR, 6793-4, 2132- 9, 2276-4, 2284-8, 2731-8, 40086-7 #### [facility] ([id number]) [address], [address] [place] [address] Lymphocytes/100 WBC (Bld) 18.3 % Normal [facility] Comment on above: Performed By: #### P INR, 86302-4, 4679-7, FEPR, 6793-4, 2132- 9, 2276-4, 2284-8, 2731-8, 25415-6 #### [facility] ([id number]) [address], [address] [place] [address] MCH (RBC) [Entitic mass] 28.5 pg Normal 27-34 [facility] Comment on above: Performed By: #### P INR, 90887-6, 4679-7, FEPR, 6793-4, 2132- 9, 2276-4, 2284-8, 2731-8, 16889-2 #### [facility] ([id number]) [address], [address] [place] [address] MCHC (RBC) [Mass/Vol] 33.9 g/dL Normal 32-36 [facility] Comment on above: Performed By: #### P INR, 05484-8, 4679-7, FEPR, 6793-4, 2132- 9, 2276-4, 2284-8, 2731-8, 98716-4 #### [facility] ([id number]) [address], [address] [place] [address] MCV (RBC) [Entitic vol] 84 fL Normal 80-100 [facility] Comment on above: Performed By: #### P INR, 74663-8, 4679-7, FEPR, 6793-4, 2132- 9, 2276-4, 2284-8, 2731-8, 18558-0 #### [facility] ([id number]) [address], [address] [place] [address] Monocytes (Bld) [#/Vol] 0.7 10*3/uL Normal 0-0.9 [facility] Comment on above: Performed By: #### P INR, 32156-0, 4679-7, FEPR, 6793-4, 2132- 9, 2276-4, 2284-8, 2731-8, 23737-6 #### [facility] ([id number]) [address], [address] [place] [address] Monocytes/100 WBC (Bld) 10.2 % Normal [facility] Comment on above: Performed By: #### P INR, 81598-5, 4679-7, FEPR, 6793-4, 2132- 9, 2276-4, 2284-8, 2731-8, 70500-0 #### [facility] ([id number]) [address], [address] [place] [address] Neutrophils/100 WBC (Bld) 69.8 % Normal [facility] Comment on above: Performed By: #### P INR, 07513-4, 4679-7, FEPR, 6793-4, 2132- 9, 2276-4, 2284-8, 2731-8, 85708-4 #### [facility] ([id number]) [address], [address] [place] [address] Platelet mean volume (Bld) [Entitic vol] 9.8 fL Normal 7-12 [facility] Comment on above: Performed By: #### P INR, 22035-9, 4679-7, FEPR, 6793-4, 2132- 9, 2276-4, 2284-8, 2731-8, 99524-5 #### [facility] ([id number]) [address], [address] [place] [address] Platelets (Bld) [#/Vol] 238 10*3/uL Normal 150-450 [facility] Comment on above: Performed By: #### P INR, 49503-5, 4679-7, FEPR, 6793-4, 2132- 9, 2276-4, 2284-8, 2731-8, 97471-0 #### [facility] ([id number]) [address], [address] [place] [address] RBC COUNT 3.46 X10E12/L Low 4.10-5.70 [facility] Comment on above: Performed By: #### P INR, 89029-0, 4679-7, FEPR, 6793-4, 2132- 9, 2276-4, 2284-8, 2731-8, 80553-7 #### [facility] ([id number]) [address], [address] [place] [address] WBC (Bld) [#/Vol] 6.4 10*3/uL Normal 4.0-11.0 [facility] Comment on above: Performed By: #### P INR, 22031-0, 4679-7, FEPR, 6793-4, 2132- 9, 2276-4, 2284-8, 2731-8, 91259-0 #### [facility] ([id number]) [address], [address] [place] [address] CBC auto differentialon 01-13 Basophils (Bld) [#/Vol] [...] 9.9 g/dL Low 13.0 - 17.0 g/dL [facility] Interpretation and review of laboratory results Abnormal [facility] Lymphocytes (Bld) [#/Vol] 1.2 10*3/uL [...] System RBC (Bld) [#/Vol] 3.46 10*6/uL [facility] WBC corrected for nucl RBC Auto (Bld) [#/Vol] 6.4 [facility] Glucose Glucometer (BldC) [M ass/Vol]on 02-03-2024 Glucose [Mass/Vol] 137 mg/dL High 65-99 [facility] Glucose [Mass/Vol] 133 mg/dL High 65-99 [facility] Glucose [Mass/Vol] 168 mg/dL High 65 - 99 mg/dL [facility] Interpretation and review of laboratory results Abnormal [facility] Glucose [Mass/Vol] 168 mg/dL High 65-99 [facility] BASIC METABOLIC PANLon 02-01 Anion gap [Moles/Vol] 11 mmol/L Normal 5-15 [facility] Comment on above: Performed By: #### P INR, 11901-0, 4679-7, FEPR, 6793-4, 2132- 9, 2276-4, 2284-8, 2731-8, 99411-2 #### [facility] ([id number]) [address], [address] [place] [address] Calcium [Mass/Vol] 9.3 mg/dL Normal 8.5-10.5 [facility] Comment on above: Performed By: #### P INR, 21776-9, 4679-7, FEPR, 6793-4, 2132- 9, 2276-4, 2284-8, 2731-8, 78986-1 #### [facility] ([id number]) [address], [address] [place] [address] Chloride [Moles/Vol] 98 mmol/L Normal 98-109 [facility] Comment on above: Performed By: #### P INR, 98907-1, 4679-7, FEPR, 6793-4, 2132- 9, 2276-4, 2284-8, 2731-8, 61293-0 #### [facility] ([id number]) [address], [address] [place] [address] CO2 [Moles/Vol] 27 mmol/L Normal 22-32 [facility] Comment on above: Performed By: #### P INR, 83784-4, 4679-7, FEPR, 6793-4, 2132- 9, 2276-4, 2284-8, 2731-8, 27345-9 #### [facility] ([id number]) [address], [address] [place] [address] Creatinine [Mass/Vol] 0.63 mg/dL Normal 0.60-1.30 [facility] Comment on above: Result Comment: METH OD TRACEABLE TO IDMS STANDARD Performed By: #### P INR, 21184-8, 4679-7, FEPR, 6793-4, 2132-9, 2276-4, 2284-8, 2731-8, 04427-6 #### [facility] ([id number]) [address] [place] [address] METHOD TRACEABLE TO IDMS STANDARD Glucose [Mass/Vol] 143 mg/dL High 65-99 [facility] Comment on above: Performed By: #### P INR, 97592-2, 4679-7, FEPR, 6793-4, 2132- 9, 2276-4, 2284-8, 2731-8, 61986-5 #### [facility] ([id number]) [address], [address] [place] [address] Potassium [Moles/Vol] 3.9 mmol/L Normal 3.5-5.0 [facility] Comment on above: Performed By: #### P INR, 09870-9, 4679-7, FEPR, 6793-4, 2132- 9, 2276-4, 2284-8, 2731-8, 69729-7 #### [facility] ([id number]) [address], [address] [place] [address] Sodium [Moles/Vol] 136 mmol/L Normal 134-146 [facility] Comment on above: Performed By: #### P INR, 03970-6, 4679-7, FEPR, 6793-4, 2132- 9, 2276-4, 2284-8, 2731-8, 16148-0 #### [facility] ([id number]) [address], [address] [place] [address] Urea nitrogen [Mass/Vol] 14 mg/dL Normal 5-23 [facility] Comment on above: Performed By: #### P INR, 75517-9, 4679-7, FEPR, 6793-4, 2132- 9, 2276-4, 2284-8, 2731-8, 83530-4 #### [facility] ([id number]) [address], [address] [place] [address] eGFR (CKD-EPI) NON-RACE DEPENDENT >90 Normal >59 [facility] Comment on above: Result Comment: Reported eGFR is based on the CKD-EPI 2020 equation that does not use a race coefficient. Performed By: #### P INR, 77070-2, 4679-7, FEPR, 6793-4, 2132-9, 2276-4, 2284-8, 2731-8, 17214-7 #### [facility] ([id number]) [address], [address] [address] Basic Metabolic Panelon - eGFR (CKD-EPI)non-race dependent - PINF [facility] Comment on above: Reported eGFR is based on the CKD-EPI 2020 equation that does not use a race coefficient. Interpretation and review of laboratory results Abnormal [facility] CBC AND AUTO DIFFon 02-02-20 24 Basophils/100 WBC (Bld) 1.0 % Normal [facility] Comment on above: Performed By: #### P INR, 73463-2, 4679-7, FEPR, 6793-4, 2132- 9, 2276-4, 2284-8, 2731-8, 00518-6 #### [facility] ([id number]) [address], [address] [place] [address] Eosinophils (Bld) [#/Vol] 0.1 10*3/uL Normal 0.0-0.4 [facility] Comment on above: Performed By: #### P INR, 66041-8, 4679-7, FEPR, 6793-4, 2132- 9, 2276-4, 2284-8, 2731-8, 18494-3 #### [facility] ([id number]) [address], [address] [place] [address] Eosinophils/100 WBC (Bld) 1.2 % Normal [facility] Comment on above: Performed By: #### P INR, 36528-0, 4679-7, FEPR, 6793-4, 2132- 9, 2276-4, 2284-8, 2731-8, 93480-2 #### [facility] ([id number]) [address], [address] [place] [address] Erythrocyte distribution width (RBC) [Ratio] 15.9 % High 11.5-15.0 [facility] Comment on above: Performed By: #### P INR, 30404-0, 4679-7, FEPR, 6793-4, 2132- 9, 2276-4, 2284-8, 2731-8, 80083-7 #### [facility] ([id number]) [address], [address] [place] [address] Hematocrit (Bld) [Volume fraction] 30.3 % Low 39-49 [facility] Comment on above: Performed By: #### P INR, 21874-8, 4679-7, FEPR, 6793-4, 2132- 9, 2276-4, 2284-8, 2731-8, 37982-8 #### [facility] ([id number]) [address], [address] [place] [address] Hemoglobin (Bld) [Mass/Vol] 10.3 g/dL Low 13.0-17.0 [facility] Comment on above: Performed By: #### P INR, 62165-7, 4679-7, FEPR, 6793-4, 2132- 9, 2276-4, 2284-8, 2731-8, 30175-0 #### [facility] ([id number]) [address], [address] [place] [address] Lymphocytes (Bld) [#/Vol] 1.4 10*3/uL Normal 1.0-3.5 [facility] Comment on above: Performed By: #### P INR, 07484-5, 4679-7, FEPR, 6793-4, 2132- 9, 2276-4, 2284-8, 2731-8, 54309-7 #### [facility] ([id number]) [address], [address] [place] [address] Lymphocytes/100 WBC (Bld) 21.4 % Normal [facility] Comment on above: Performed By: #### P INR, 31222-5, 4679-7, FEPR, 6793-4, 2132- 9, 2276-4, 2284-8, 2731-8, 63919-1 #### [facility] ([id number]) [address], [address] [place] [address] MCH (RBC) [Entitic mass] 28.9 pg Normal 27-34 [facility] Comment on above: Performed By: #### P INR, 61290-8, 4679-7, FEPR, 6793-4, 2132- 9, 2276-4, 2284-8, 2731-8, 19962-9 #### [facility] ([id number]) [address], [address] [place] [address] MCHC (RBC) [Mass/Vol] 34.1 g/dL Normal 32-36 [facility] Comment on above: Performed By: #### P INR, 54883-5, 4679-7, FEPR, 6793-4, 2132- 9, 2276-4, 2284-8, 2731-8, 42831-0 #### [facility] ([id number]) [address], [address] [place] [address] MCV (RBC) [Entitic vol] 85 fL Normal 80-100 [facility] Comment on above: Performed By: #### P INR, 14787-2, 4679-7, FEPR, 6793-4, 2132- 9, 2276-4, 2284-8, 2731-8, 06642-7 #### [facility] ([id number]) [address], [address] [place] [address] Monocytes (Bld) [#/Vol] 0.6 10*3/uL Normal 0-0.9 [facility] Comment on above: Performed By: #### P INR, 48323-7, 4679-7, FEPR, 6793-4, 2132- 9, 2276-4, 2284-8, 2731-8, 14108-8 #### [facility] ([id number]) [address], [address] [place] [address] Monocytes/100 WBC (Bld) 9.4 % Normal [facility] Comment on above: Performed By: #### P INR, 60014-0, 4679-7, FEPR, 6793-4, 2132- 9, 2276-4, 2284-8, 2731-8, 11591-6 #### [facility] ([id number]) [address], [address] [place] [address] Neutrophils/100 WBC (Bld) 67.0 % Normal [facility] Comment on above: Performed By: #### P INR, 86360-2, 4679-7, FEPR, 6793-4, 2132- 9, 2276-4, 2284-8, 2731-8, 89509-6 #### [facility] ([id number]) [address], [address] [place] [address] Platelet mean volume (Bld) [Entitic vol] 10.0 fL Normal 7-12 [facility] Comment on above: Performed By: #### P INR, 01490-4, 4679-7, FEPR, 6793-4, 2132- 9, 2276-4, 2284-8, 2731-8, 52749-4 #### [facility] ([id number]) [address], [address] [place] [address] Platelets (Bld) [#/Vol] 235 10*3/uL Normal 150-450 [facility] Comment on above: Performed By: #### P INR, 50052-1, 4679-7, FEPR, 6793-4, 2132- 9, 2276-4, 2284-8, 2731-8, 90063-4 #### [facility] ([id number]) [address], [address] [place] [address] ABSOLUTE BASOPHIL 0.1 X10E9/L Normal 0.0-0.2 [facility] Comment on above: Performed By: #### P INR, 18154-0, 4679-7, FEPR, 6793-4, 2132- 9, 2276-4, 2284-8, 2731-8, 04798-9 #### [facility] ([id number]) [address], [address] [place] [address] ABSOLUTE NEUTROPHIL 4.3 X10E9/L Normal 1.5-6.6 [facility] Comment on above: Performed By: #### P INR, 67358-5, 4679-7, FEPR, 6793-4, 2132- 9, 2276-4, 2284-8, 2731-8, 17455-7 #### [facility] ([id number]) [address], [address] [place] [address] RBC COUNT 3.58 X10E12/L Low 4.10-5.70 [facility] Comment on above: Performed By: #### P INR, 98904-9, 4679-7, FEPR, 6793-4, 2132- 9, 2276-4, 2284-8, 2731-8, 23417-6 #### [facility] ([id number]) [address], [address] [place] [address] WBC (Bld) [#/Vol] 6.4 10*3/uL Normal 4.0-11.0 [facility] Comment on above: Performed By: #### P INR, 03038-8, 4679-7, FEPR, 6793-4, 2132- 9, 2276-4, 2284-8, 2731-8, 52395-8 #### [facility] ([id number]) [address], [address] [place] [address] CBC auto differentialon 01-13 Basophils (Bld) [#/Vol] 0.1 10*3/uL [facility] Interpretation and review of laboratory results Abnormal [facility] Neutrophils (Bld) [#/Vol] 4.3 10*3/uL [facility] RBC (Bld) [#/Vol] 3.58 10*6/uL Low [facility] WBC corrected for nucl RBC Auto (Bld) [#/Vol] 6.4 [facility] Glucose Glucometer (dC) [M ass/Vol]on 02-02-2024 Glucose [Mass/Vol] 182 mg/dL High 65 - 99 mg/dL [facility] Interpretation and review of laboratory results Abnormal [facility] Glucose [Mass/Vol] 182 mg/dL High 65-99 [facility] Glucose [Mass/Vol] 131 mg/dL High 65 - 99 mg/dL [facility] Interpretation and review of laboratory results Abnormal [facility] Glucose [Mass/Vol] 131 mg/dL High 65-99 [facility] Glucose [Mass/Vol] 167 mg/dL High 65 - 99 mg/dL [facility] Interpretation and review of laboratory results Abnormal [facility] Glucose [Mass/Vol] 167 mg/dL High 65-99 [facility] Glucose [Mass/Vol] 146 mg/dL High 65 - 99 mg/dL [facility] Interpretation and review of laboratory results Abnormal [facility] Glucose [Mass/Vol] 146 mg/dL High 65-99 [facility].doppler Lower extremity v ein - righton [...] the phone number beside their name. PM Rox Shah DO - 02/02/2024 Right: Lower extremity deep [...] at the phone number beside their name. [facility] Radiology Study observation (narrative) [facility] US.doppler Lower extremity v ein - rightOrdered By: Rox Miller on 02-02-2024 [facility] Work Phone: BASIC METABOLIC PANLon 01-31 Anion gap [Moles/Vol] 13 mmol/L Normal 5-[address] [facility] Comment on above: Performed By: #### P INR, 91676-2, 4679-7, FEPR, 6793-4, 2132- 9, 2276-4, 2284-8, 2731-8, 76605-6 #### [facility] ([id number]) [address], [address] [place] [address] Calcium [Mass/Vol] 9.0 mg/dL Normal 8.5-10.5 [facility] Comment on above: Performed By: #### P INR, 38781-5, 4679-7, FEPR, 6793-4, 2132- 9, 2276-4, 2284-8, 2731-8, 54585-6 #### [facility] ([id number]) [address], [address] [place] [address] Chloride [Moles/Vol] 98 mmol/L Normal 98-109 [facility] Comment on above: Performed By: #### P INR, 27259-1, 4679-7, FEPR, 6793-4, 2132- 9, 2276-4, 2284-8, 2731-8, 51260-6 #### [facility] ([id number]) [address], [address] [place] [address] CO2 [Moles/Vol] 23 mmol/L Normal 22-32 [facility] Comment on above: Performed By: #### P INR, 80185-4, 4679-7, FEPR, 6793-4, 2132- 9, 2276-4, 2284-8, 2731-8, 73186-5 #### [facility] ([id number]) [address], [address] [place] [address] Creatinine [Mass/Vol] 0.66 mg/dL Normal 0.60-1.[address] [facility] Comment on above: Result Comment: METH OD TRACEABLE TO IDMS STANDARD Performed By: #### P INR, 43927-3, 4679-7, FEPR, 6793-4, 2132-9, 2276-4, 2284-8, 2731-8, 52692-1 #### [facility] ([id number]) [address], [address] [place] [address] eGFR (CKD-EPI) NON-RACE DEPENDENT >90 Normal >59 [facility] Comment on above: Result Comment: Reported eGFR is based on the CKD-EPI 2020 equation that does not use a race coefficient. Performed By: #### P INR, 72629-0, 4679-7, FEPR, 6793-4, 2132-9, 2276-4, 2284-8, 2731-8, 33756-7 #### [facility] ([id number]) [address], [address] [place] [address] Glucose [Mass/Vol] 130 mg/dL High 65-99 [facility] Comment on above: Performed By: #### P INR, 06890-6, 4679-7, FEPR, 6793-4, 2132- 9, 2276-4, 2284-8, 2731-8, 01046-8 #### [facility] ([id number]) [address], [address] [place] [address] Potassium [Moles/Vol] 3.8 mmol/L Normal 3.5-5.[address] [facility] Comment on above: Performed By: #### P INR, 18889-2, 4679-7, FEPR, 6793-4, 2132- 9, 2276-4, 2284-8, 2731-8, 51507-4 #### [facility] ([id number]) [address], [address] [place] [address] Sodium [Moles/Vol] 134 mmol/L Normal 134-146 [facility] Comment on above: Performed By: #### P INR, 59926-6, 4679-7, FEPR, 6793-4, 2132- 9, 2276-4, 2284-8, 2731-8, 83576-9 #### [facility] ([id number]) [address], [address] [place] [address] Urea nitrogen [Mass/Vol] 15 mg/dL Normal 5-23 [facility] Comment on above: Performed By: #### P INR, 19969-0, 4679-7, FEPR, 6793-4, 2132- 9, 2276-4, 2284-8, 2731-8, 18487-2 #### [facility] ([id number]) [address], [address] [place] [address] Basic Metabolic Panelon - Anion gap [Moles/Vol] 13 mmol/L 5 - 15 mmol/L [facility] Calcium [Mass/Vol] 9.0 mg/dL 8.5 - 10. 5 mg/dL [facility] Chloride [Moles/Vol] 98 mmol/L 98 - 10 9 mmol/L [facility] CO2 [Moles/Vol] 23 mmol/L 22 - 32 mmol/L [facility] Creatinine [Mass/Vol] 0.66 mg/dL 0.60 - 1.30 mg/dL [facility] Comment on above: METHOD TRACEABLE TO IDWA STANDARD eGFR (CKD-EPI)non-race dependent - PINF [facility] Comment on above: Reported eGFR is based on the CKD-EPI 2020 equation that does not use a race coefficient. Glucose [Mass/Vol] 130 mg/dL High 65 - 99 mg/dL [facility] Interpretation and review of laboratory results Abnormal [facility] Potassium [Moles/Vol] 3.8 mmol/L 3.5 - 5.0 mmol/L [facility] Sodium [Moles/Vol] 134 mmol/L 134 - 146 mmol/L [facility] Urea nitrogen [Mass/Vol] 15 mg/dL 5 - 23 mg/dL [facility] CBC AND AUTO DIFFon 01-31- ABSOLUTE BASOPHIL 0.1 X10E9/L Normal 0.0-0.2 [facility] Comment on above: Performed By: #### P INR, 77493-1, 4679-7, FEPR, 6793-4, 2132- 9, 2276-4, 2284-8, 2731-8, 57181-4 #### [facility] ([id number]) [address] [place] [address] ABSOLUTE NEUTROPHIL 4.5 X10E9/L Normal 1.5-6.6 [facility] Comment on above: Performed By: #### P INR, 16459-0, 4679-7, FEPR, 6793-4, 2132- 9, 2276-4, 2284-8, 2731-8, 54583-1 #### [facility] ([id number]) [address], [address] [place] [address] Basophils/100 WBC (Bld) 0.9 % Normal [facility] [facility] Comment on above: Performed By: #### P INR, 27088-2, 4679-7, FEPR, 6793-4, 2132- 9, 2276-4, 2284-8, 2731-8, 35325-1 #### [facility] ([id number]) [address], [address] [place] [address] Eosinophils (Bld) [#/Vol] 0.1 10*3/uL Normal 0.0-0.4 [facility] Comment on above: Performed By: #### P INR, 40436-7, 4679-7, FEPR, 6793-4, 2132- 9, 2276-4, 2284-8, 2731-8, 47260-0 #### [facility] ([id number]) [address], [address] [place] [address] Eosinophils/100 WBC (Bld) 1.0 % Normal [facility] Comment on above: Performed By: #### P INR, 80196-1, 4679-7, FEPR, 6793-4, 2132- 9, 2276-4, 2284-8, 2731-8, 52165-4 #### [facility] ([id number]) [address], [address] [place] [address] Erythrocyte distribution width (RBC) [Ratio] 15.5 % High 11.5-15.0 [facility] Comment on above: Performed By: #### P INR, 35935-2, 4679-7, FEPR, 6793-4, 2132- 9, 2276-4, 2284-8, 2731-8, 58431-2 #### [facility] ([id number]) [address], [address] [place] [address] Hematocrit (Bld) [Volume fraction] 31.0 % Low 39-49 [facility] Comment on above: Performed By: #### P INR, 57966-4, 4679-7, FEPR, 6793-4, 2132- 9, 2276-4, 2284-8, 2731-8, 86498-9 #### [facility] ([id number]) [address], [address] [place] [address] Hemoglobin (Bld) [Mass/Vol] 10.8 g/dL Low 13.0-17.0 [facility] Comment on above: Performed By: #### P INR, 86967-2, 4679-7, FEPR, 6793-4, 2132- 9, 2276-4, 2284-8, 2731-8, 88164-1 #### [facility] ([id number]) [address], [address] [place] [address] Lymphocytes (Bld) [#/Vol] 1.3 10*3/uL Normal 1.0-3.5 [facility] Comment on above: Performed By: #### P INR, 30083-8, 4679-7, FEPR, 6793-4, 2132- 9, 2276-4, 2284-8, 2731-8, 94028-7 #### [facility] ([id number]) [address], [address] [place] [address] Lymphocytes/100 WBC (Bld) 20.0 % Normal [facility] Comment on above: Performed By: #### P INR, 25205-3, 4679-7, FEPR, 6793-4, 2132- 9, 2276-4, 2284-8, 2731-8, 46701-8 #### [facility] ([id number]) [address], [address] [place] [address] MCH (RBC) [Entitic mass] 29.2 pg Normal 27-34 [facility] Comment on above: Performed By: #### P INR, 69999-7, 4679-7, FEPR, 6793-4, 2132- 9, 2276-4, 2284-8, 2731-8, 52174-8 #### [facility] ([id number]) [address], [address] [place] [address] MCHC (RBC) [Mass/Vol] 34.7 g/dL Normal 32-[address] [facility] Comment on above: Performed By: #### P INR, 35194-3, 4679-7, FEPR, 6793-4, 2132- 9, 2276-4, 2284-8, 2731-8, 83586-8 #### [facility] ([id number]) [address], [address] [place] [address] MCV (RBC) [Entitic vol] 84 fL Normal 80-100 [facility] Comment on above: Performed By: #### P INR, 55512-1, 4679-7, FEPR, 6793-4, 2132- 9, 2276-4, 2284-8, 2731-8, 72900-7 #### [facility] ([id number]) [address], [address] [place] [address] Monocytes (Bld) [#/Vol] 0.6 10*3/uL Normal 0-0.9 [facility] Comment on above: Performed By: #### P INR, 45418-0, 4679-7, FEPR, 6793-4, 2132- 9, 2276-4, 2284-8, 2731-8, 33373-0 #### [facility] ([id number]) [address], [address] [place] [address] Monocytes/100 WBC (Bld) 8.5 % Normal [facility] Comment on above: Performed By: #### P INR, 10157-9, 4679-7, FEPR, 6793-4, 2132- 9, 2276-4, 2284-8, 2731-8, 96980-2 #### [facility] ([id number]) [address], [address] [place] [address] Neutrophils/100 WBC (Bld) 69.6 % Normal [facility] Comment on above: Performed By: #### P INR, 19273-1, 4679-7, FEPR, 6793-4, 2132- 9, 2276-4, 2284-8, 2731-8, 06162-7 #### [facility] ([id number]) [address], [address] [place] [address] Platelet mean volume (Bld) [Entitic vol] 10.4 fL Normal 7-12 [facility] Comment on above: Performed By: #### P INR, 53730-3, 4679-7, FEPR, 6793-4, 2132- 9, 2276-4, 2284-8, 2731-8, 15753-2 #### [facility] ([id number]) [address], [address] [place] [address] Platelets (Bld) [#/Vol] 273 10*3/uL Normal 150-450 [facility] Comment on above: Performed By: #### P INR, 85474-2, 4679-7, FEPR, 6793-4, 2132- 9, 2276-4, 2284-8, 2731-8, 58817-2 #### [facility] ([id number]) [address], [address] [place] [address] RBC COUNT 3.69 X10E12/L Low 4.10-5.70 [facility] Comment on above: Performed By: #### P INR, 80902-6, 4679-7, FEPR, 6793-4, 2132- 9, 2276-4, 2284-8, 2731-8, 14553-9 #### [facility] ([id number]) [address] [place] [address] WBC (Bld) [#/Vol] 6.5 10*3/uL Normal 4.0-11.0 [facility] Comment on above: Performed By: #### P INR, 25842-1, 4679-7, FEPR, 6793-4, 2132- 9, 2276-4, 2284-8, 2731-8, 00266-4 #### [facility] ([id number]) [address] [place] [address] CBC auto differentialon 01-13-2023 Basophils (Bld) [#/Vol] 0.1 10*3/uL [facility] Basophils/100 WBC (Bld) 0.9 % [facility] Eosinophils (Bld) [#/Vol] 0.1 10*3/uL [facility] Eosinophils/100 WBC (Bld) 1.0 % [facility] Erythrocyte distribution width (RBC) [Ratio] 15.5 % High 11.5 - 15.0 % [facility] Hematocrit (Bld) [Volume fraction] 31.0 % Low 39 - 49 % [facility] Hemoglobin (Bld) [Mass/Vol] 10.8 g/dL Low 13.0 - 17.0 g/dL [facility] Interpretation and review of laboratory results Abnormal [facility] Lymphocytes (Bld) [#/Vol] 1.3 10*3/uL [facility] Lymphocytes/100 WBC (Bld) 20.0 % [facility] MCH (RBC) [Entitic mass] 29.2 pg 27 - 34 pg [facility] MCHC (RBC) [Mass/Vol] 34.7 g/dL 32 - 3 6 g/dL [facility] MCV (RBC) [Entitic vol] 84 fL 80 - 100 fL [facility] Monocytes (Bld) [#/Vol] 0.6 10*3/uL [facility] Monocytes/100 WBC (Bld) 8.5 % [facility] Neutrophils (Bld) [#/Vol] 4.5 10*3/uL [facility] Neutrophils/100 WBC (Bld) 69.6 % [facility] Platelet mean volume (Bld) [Entitic vol] 10.4 fL 7 - 12 fL [facility] Platelets (Bld) [#/Vol] 273 10*3/uL [facility] RBC (Bld) [#/Vol] 3.69 10*6/uL Low [facility] WBC corrected for nucl RBC Auto (Bld) [#/Vol] 6.[address] [facility] Glucose Glucometer (BldC) [M ass/Vol]on 02-01-2024 Glucose [Mass/Vol] 135 mg/dL High 65 - 99 mg/dL [facility] Interpretation and review of laboratory results Abnormal [facility] Glucose [Mass/Vol] 135 mg/dL High 65-99 [facility] Glucose [Mass/Vol] 232 mg/dL High 65 - 99 mg/dL [facility] Interpretation and review of laboratory results Abnormal [facility] Glucose [Mass/Vol] 232 mg/dL High 65-99 [facility] Glucose [Mass/Vol] 132 mg/dL High 65 - 99 mg/dL [facility] Interpretation and review of laboratory results Abnormal [facility] Glucose [Mass/Vol] 132 mg/dL High 65-99 [facility] Glucose [Mass/Vol] 125 mg/dL High 65 - 99 mg/dL [facility] Interpretation and review of laboratory results Abnormal [facility] Glucose [Mass/Vol] 125 mg/dL High 65-99 [facility] BASIC METABOLIC PANLon 01-30 Anion gap [Moles/Vol] 12 mmol/L Normal 5-[address] [facility] Comment on above: Performed By: #### P INR, 10184-5, 4679-7, FEPR, 6793-4, 2132- 9, 2276-4, 2284-8, 2731-8, 86030-6 #### [facility] ([id number]) [address], [address] [place] [address] Calcium [Mass/Vol] 9.0 mg/dL Normal 8.5-10.5 [facility] Comment on above: Performed By: #### P INR, 34031-5, 4679-7, FEPR, 6793-4, 2132- 9, 2276-4, 2284-8, 2731-8, 47635-3 #### [facility] ([id number]) [address], [address] [place] [address] Chloride [Moles/Vol] 95 mmol/L Low 98-109 [facility] Comment on above: Performed By: #### P INR, 46620-3, 4679-7, FEPR, 6793-4, 2132- 9, 2276-4, 2284-8, 2731-8, 92431-0 #### [facility] ([id number]) [address], [address] [place] [address] CO2 [Moles/Vol] 24 mmol/L Normal 22-32 [facility] Comment on above: Performed By: #### P INR, 17350-4, 4679-7, FEPR, 6793-4, 2132- 9, 2276-4, 2284-8, 2731-8, 58622-4 #### [facility] ([id number]) [address], [address] [place] [address] Creatinine [Mass/Vol] 0.64 mg/dL Normal 0.60-1.[address] [facility] Comment on above: Result Comment: METH OD TRACEABLE TO IDMS STANDARD Performed By: #### P INR, 80246-3, 4679-7, FEPR, 6793-4, 2132-9, 2276-4, 2284-8, 2731-8, 19252-6 #### [facility] ([id number]) [address], [address] [place] [address] eGFR (CKD-EPI) NON-RACE DEPENDENT >90 Normal >59 [facility] Comment on above: Result Comment: Reported eGFR is based on the CKD-EPI 2020 equation that does not use a race coefficient. Performed By: #### P INR, 35648-6, 4679-7, FEPR, 6793-4, 2132-9, 2276-4, 2284-8, 2731-8, 44923-8 #### [facility] ([id number]) [address], [address] [place] [address] Glucose [Mass/Vol] 205 mg/dL High 65-99 [facility] Comment on above: Performed By: #### P INR, 34008-3, 4679-7, FEPR, 6793-4, 2132- 9, 2276-4, 2284-8, 2731-8, 83476-2 #### [facility] ([id number]) [address], [address] [place] [address] Potassium [Moles/Vol] 4.1 mmol/L Normal 3.5-5.[address] [facility] Comment on above: Performed By: #### P INR, 33331-7, 4679-7, FEPR, 6793-4, 2132- 9, 2276-4, 2284-8, 2731-8, 70886-1 #### [facility] ([id number]) [address], [address] [place] [address] Sodium [Moles/Vol] 131 mmol/L Low 134-146 [facility] Comment on above: Performed By: #### P INR, 48091-3, 4679-7, FEPR, 6793-4, 2132- 9, 2276-4, 2284-8, 2731-8, 91704-5 #### [facility] ([id number]) [address], [address] [place] [address] Urea nitrogen [Mass/Vol] 13 mg/dL Normal 5-23 [facility] Comment on above: Performed By: #### P INR, 80948-1, 4679-7, FEPR, 6793-4, 2132- 9, 2276-4, 2284-8, 2731-8, 37681-1 #### [facility] ([id number]) [address], [address] [place] [address] Basic Metabolic Panelon 01-12 Anion gap [Moles/Vol] 12 mmol/L 5 - 15 mmol/L [facility] Calcium [Mass/Vol] 9.0 mg/dL 8.5 - 10. 5 mg/dL [facility] Chloride [Moles/Vol] 95 mmol/L Low 98 - 10 9 mmol/L [facility] CO2 [Moles/Vol] 24 mmol/L 22 - 32 mmol/L [facility] Creatinine [Mass/Vol] 0.64 mg/dL 0.60 - 1.30 mg/dL [facility] Comment on above: METHOD TRACEABLE TO IDWA STANDARD eGFR (CKD-EPI)non-race dependent - PINF [facility] Comment on above: Reported eGFR is based on the CKD-EPI 2020 equation that does not use a race coefficient. Glucose [Mass/Vol] 205 mg/dL High 65 - 99 mg/dL [facility] Interpretation and review of laboratory results Abnormal [facility] Potassium [Moles/Vol] 4.1 mmol/L 3.5 - 5.0 mmol/L [facility] Sodium [Moles/Vol] 131 mmol/L Low 134 - 146 mmol/L [facility] Urea nitrogen [Mass/Vol] 13 mg/dL 5 - 23 mg/dL [facility] CBC without diffon Erythrocyte distribution width (RBC) [Ratio] 15.7 % High 11.5 - 15.0 % [facility] Hematocrit (Bld) [Volume fraction] 27.1 % Low 39 - 49 % [facility] Hemoglobin (Bld) [Mass/Vol] 9.4 g/dL Low 13.0 - 17.0 g/dL [facility] Interpretation and review of laboratory results Abnormal [facility] MCH (RBC) [Entitic mass] 28.8 pg 27 - 34 pg [facility] MCHC (RBC) [Mass/Vol] 34.7 g/dL 32 - 3 6 g/dL [facility] MCV (RBC) [Entitic vol] 83 fL 80 - 100 fL [facility] Platelet mean volume (Bld) [Entitic vol] 10.4 fL 7 - 12 fL [facility] Platelets (Bld) [#/Vol] 230 10*3/uL [facility] RBC (Bld) [#/Vol] 3.26 10*6/uL Low [facility] WBC corrected for nucl RBC Auto (Bld) [#/Vol] 11.2 High [facility] COMPLETE BLOOD COUNTon 01-30 Erythrocyte distribution width (RBC) [Ratio] 15.7 % High 11.5-15.0 [facility] Comment on above: Performed By: #### P INR, 93664-5, 4679-7, FEPR, 6793-4, 2132- 9, 2276-4, 2284-8, 2731-8, 86873-0 #### [facility] ([id number]) [address], [address] [place] [address] Hematocrit (Bld) [Volume fraction] 27.1 % Low 39-49 [facility] Comment on above: Performed By: #### P INR, 96378-7, 4679-7, FEPR, 6793-4, 2132- 9, 2276-4, 2284-8, 2731-8, 31709-7 #### [facility] ([id number]) [address], [address] [place] [address] Hemoglobin (Bld) [Mass/Vol] 9.4 g/dL Low 13.0-17.0 [facility] Comment on above: Performed By: #### P INR, 43279-9, 4679-7, FEPR, 6793-4, 2132- 9, 2276-4, 2284-8, 2731-8, 54878-4 #### [facility] ([id number]) [address], [address] [place] [address] MCH (RBC) [Entitic mass] 28.8 pg Normal 27-34 [facility] Comment on above: Performed By: #### P INR, 69610-9, 4679-7, FEPR, 6793-4, 2132- 9, 2276-4, 2284-8, 2731-8, 33004-3 #### [facility] ([id number]) [address], [address] [place] [address] MCHC (RBC) [Mass/Vol] 34.7 g/dL Normal 32-[address] [facility] Comment on above: Performed By: #### P INR, 92373-7, 4679-7, FEPR, 6793-4, 2132- 9, 2276-4, 2284-8, 2731-8, 82465-8 #### [facility] ([id number]) [address], [address] [place] [address] MCV (RBC) [Entitic vol] 83 fL Normal 80-100 [facility] Comment on above: Performed By: #### P INR, 53458-7, 4679-7, FEPR, 6793-4, 2132- 9, 2276-4, 2284-8, 2731-8, 17148-0 #### [facility] ([id number]) [address], [address] [place] [address] Platelet mean volume (Bld) [Entitic vol] 10.4 fL Normal 7-12 [facility] Comment on above: Performed By: #### P INR, 59091-1, 4679-7, FEPR, 6793-4, 2132- 9, 2276-4, 2284-8, 2731-8, 04193-4 #### [facility] ([id number]) [address], [address] [place] [address] Platelets (Bld) [#/Vol] 230 10*3/uL Normal 150-450 [facility] Comment on above: Performed By: #### P INR, 16356-7, 4679-7, FEPR, 6793-4, 2132- 9, 2276-4, 2284-8, 2731-8, 23084-4 #### [facility] ([id number]) [address] [place] [address] RBC COUNT 3.26 X10E12/L Low 4.10-5.70 [facility] Comment on above: Performed By: #### P INR, 54960-7, 4679-7, FEPR, 6793-4, 2132- 9, 2276-4, 2284-8, 2731-8, 91845-9 #### [facility] ([id number]) [address], [address] [place] [address] WBC (Bld) [#/Vol] 11.2 10*3/uL High 4.0-11.0 [facility] Comment on above: Performed By: #### P INR, 93347-1, 4679-7, FEPR, 6793-4, 2132- 9, 2276-4, 2284-8, 2731-8, 23898-6 #### [facility] ([id number]) [address] [place] [address] Glucose Glucometer (BldC) [M ass/Vol]on 01-31-2024 Glucose [Mass/Vol] 260 mg/dL High 65 - 99 mg/dL [facility] Interpretation and review of laboratory results Abnormal [facility] Glucose [Mass/Vol] 260 mg/dL High 65-99 [facility] Glucose [Mass/Vol] 145 mg/dL High 65 - 99 mg/dL [facility] Interpretation and review of laboratory results Abnormal [facility] Glucose [Mass/Vol] 145 mg/dL High 65-99 [facility] Glucose [Mass/Vol] 185 mg/dL High 65 - 99 mg/dL [facility] Interpretation and review of laboratory results Abnormal [facility] Glucose [Mass/Vol] 185 mg/dL High 65-99 [facility] Glucose [Mass/Vol] 198 mg/dL High 65 - 99 mg/dL [facility] Interpretation and review of laboratory results Abnormal [facility] Glucose [Mass/Vol] 198 mg/dL High 65-99 [facility] Osmolalityon 01-31-2024 Osmolality [Osmolality] 279 mosm/kg Low [facility] Osmolality (U) [Osmolality]o n 01-31-2024 [facility] URINE OSMOLALITY 521 mOsm/kg H2 Normal 300-1300 [facility] Comment on above: Performed By: #### P INR, 28740-5, 4679-7, FEPR, 6793-4, 2132- 9, 2276-4, 2284-8, 2731-8, 50432-3 #### [facility] ([id number]) [address], [address] [place] [address] Osmolality [Osmolality]on Interpretation and review of laboratory results Abnormal [facility] OSMOLALITY 279 mOsm/kg H2 Low 280-300 [facility] Comment on above: Performed By: #### P INR, 61568-4, 4679-7, FEPR, 6793-4, 2132- 9, 2276-4, 2284-8, 2731-8, 16145-6 #### [facility] ([id number]) [address], [address] [place] [address] Osmolality, urineon 01-31-20 Osmolality (U) [Osmolality] 521 mosm/kg [facility] Sodium (U) [Moles/Vol]on [facility] Sodium, urine, randomon 01-12 Sodium (U) [Moles/Vol] 10 mmol/L [facility] URINE SODIUM,RANDOMon 2023 Sodium (U) [Moles/Vol] 10 mmol/L Normal [facility] Comment on above: Performed By: #### P INR, 87193-3, 4679-7, FEPR, 6793-4, 2132- 9, 2276-4, 2284-8, 2731-8, 08432-8 #### [facility] ([id number]) [address], [address] [place] [address] BASIC METABOLIC PANLon 01-29 Anion gap [Moles/Vol] 9 mmol/L Normal 5-[address] [facility] Comment on above: Performed By: #### P INR, 69764-6, 4679-7, FEPR, 6793-4, 2132- 9, 2276-4, 2284-8, 2731-8, 94900-8 #### [facility] ([id number]) [address], [address] [place] [address] Calcium [Mass/Vol] 9.6 mg/dL Normal 8.5-10.5 [facility] Comment on above: Performed By: #### P INR, 69359-1, 4679-7, FEPR, 6793-4, 2132- 9, 2276-4, 2284-8, 2731-8, 95158-5 #### [facility] ([id number]) [address], [address] [place] [address] Chloride [Moles/Vol] 97 mmol/L Low 98-109 [facility] Comment on above: Performed By: #### P INR, 23792-0, 4679-7, FEPR, 6793-4, 2132- 9, 2276-4, 2284-8, 2731-8, 33258-0 #### [facility] ([id number]) [address], [address] [place] [address] CO2 [Moles/Vol] 29 mmol/L Normal 22-32 [facility] Comment on above: Performed By: #### P INR, 27084-2, 4679-7, FEPR, 6793-4, 2132- 9, 2276-4, 2284-8, 2731-8, 34104-0 #### [facility] ([id number]) [address], [address] [place] [address] Creatinine [Mass/Vol] 0.65 mg/dL Normal 0.60-1.[address] [facility] Comment on above: Result Comment: METH OD TRACEABLE TO IDMS STANDARD Performed By: #### P INR, 73159-4, 4679-7, FEPR, 6793-4, 2132-9, 2276-4, 2284-8, 2731-8, 44459-5 #### [facility] ([id number]) [address], [address] [place] [address] eGFR (CKD-EPI) NON-RACE DEPENDENT >90 Normal >59 [facility] Comment on above: Result Comment: Reported eGFR is based on the CKD-EPI 2020 equation that does not use a race coefficient. Performed By: #### P INR, 36240-3, 4679-7, FEPR, 6793-4, 2132-9, 2276-4, 2284-8, 2731-8, 33344-7 #### [facility] ([id number]) [address], [address] [place] [address] Glucose [Mass/Vol] 159 mg/dL High 65-99 [facility] Comment on above: Performed By: #### P INR, 97038-6, 4679-7, FEPR, 6793-4, 2132- 9, 2276-4, 2284-8, 2731-8, 10325-5 #### [facility] ([id number]) [address] [place] [address] Potassium [Moles/Vol] 4.6 mmol/L Normal 3.5-5.[address] [facility] Comment on above: Performed By: #### P INR, 38100-6, 4679-7, FEPR, 6793-4, 2132- 9, 2276-4, 2284-8, 2731-8, 53257-7 #### [facility] ([id number]) [address], [address] [place] [address] Sodium [Moles/Vol] 135 mmol/L Normal 134-146 [facility] Comment on above: Performed By: #### P INR, 43908-3, 4679-7, FEPR, 6793-4, 2132- 9, 2276-4, 2284-8, 2731-8, 82416-9 #### [facility] ([id number]) [address], [address] [place] [address] Urea nitrogen [Mass/Vol] 13 mg/dL Normal 5-23 [facility] Comment on above: Performed By: #### P INR, 26755-0, 4679-7, FEPR, 6793-4, 2132- 9, 2276-4, 2284-8, 2731-8, 08058-4 #### [facility] ([id number]) [address], [address] [place] [address] Basic Metabolic Panelon 06- Anion gap [Moles/Vol] 9 mmol/L 5 - 15 mmol/L [facility] Calcium [Mass/Vol] 9.6 mg/dL 8.5 - 10. 5 mg/dL [facility] Chloride [Moles/Vol] 97 mmol/L Low 98 - 10 9 mmol/L [facility] CO2 [Moles/Vol] 29 mmol/L 22 - 32 mmol/L [facility] Creatinine [Mass/Vol] 0.65 mg/dL 0.60 - 1.30 mg/dL [facility] Comment on above: METHOD TRACEABLE TO IDWA STANDARD eGFR (CKD-EPI)non-race dependent - PINF [facility] Comment on above: Reported eGFR is based on the CKD-EPI 2020 equation that does not use a race coefficient. Glucose [Mass/Vol] 159 mg/dL High 65 - 99 mg/dL [facility] Interpretation and review of laboratory results Abnormal [facility] Potassium [Moles/Vol] 4.6 mmol/L 3.5 - 5.0 mmol/L [facility] Sodium [Moles/Vol] 135 mmol/L 134 - 146 mmol/L [facility] Urea nitrogen [Mass/Vol] 13 mg/dL 5 - 23 mg/dL [facility] CBC without diffon Erythrocyte distribution width (RBC) [Ratio] 15.9 % High 11.5 - 15.0 % [facility] Hematocrit (Bld) [Volume fraction] 34.6 % Low 39 - 49 % [facility] Hemoglobin (Bld) [Mass/Vol] 11.4 g/dL Low 13.0 - 17.0 g/dL [facility] Interpretation and review of laboratory results Abnormal [facility] MCH (RBC) [Entitic mass] 27.6 pg 27 - 34 pg [facility] MCHC (RBC) [Mass/Vol] 33.0 g/dL 32 - 3 6 g/dL [facility] MCV (RBC) [Entitic vol] 84 fL 80 - 100 fL [facility] Platelet mean volume (Bld) [Entitic vol] 10.2 fL 7 - 12 fL [facility] Platelets (Bld) [#/Vol] 180 10*3/uL [facility] RBC (Bld) [#/Vol] 4.13 10*6/uL [facility] WBC corrected for nucl RBC Auto (Bld) [#/Vol] 7.8 [facility] COMPLETE BLOOD COUNTon 01-29 Erythrocyte distribution width (RBC) [Ratio] 15.9 % High 11.5-15.0 [facility] Comment on above: Performed By: #### P INR, 32532-9, 4679-7, FEPR, 6793-4, 2132- 9, 2276-4, 2284-8, 2731-8, 84766-4 #### [facility] ([id number]) [address], [address] [place] [address] Hematocrit (Bld) [Volume fraction] 34.6 % Low 39-49 [facility] Comment on above: Performed By: #### P INR, 26268-5, 4679-7, FEPR, 6793-4, 2132- 9, 2276-4, 2284-8, 2731-8, 81839-7 #### [facility] ([id number]) [address], [address] [place] [address] Hemoglobin (Bld) [Mass/Vol] 11.4 g/dL Low 13.0-17.0 [facility] Comment on above: Performed By: #### P INR, 02016-3, 4679-7, FEPR, 6793-4, 2132- 9, 2276-4, 2284-8, 2731-8, 23872-8 #### [facility] ([id number]) [address], [address] [place] [address] MCH (RBC) [Entitic mass] 27.6 pg Normal 27-34 [facility] Comment on above: Performed By: #### P INR, 32799-4, 4679-7, FEPR, 6793-4, 2132- 9, 2276-4, 2284-8, 2731-8, 36018-4 #### [facility] ([id number]) [address], [address] [place] [address] MCHC (RBC) [Mass/Vol] 33.0 g/dL Normal 32-[address] [facility] Comment on above: Performed By: #### P INR, 73394-6, 4679-7, FEPR, 6793-4, 2132- 9, 2276-4, 2284-8, 2731-8, 17292-3 #### [facility] ([id number]) [address], [address] [place] [address] MCV (RBC) [Entitic vol] 84 fL Normal 80-100 [facility] Comment on above: Performed By: #### P INR, 00723-3, 4679-7, FEPR, 6793-4, 2132- 9, 2276-4, 2284-8, 2731-8, 63618-7 #### [facility] ([id number]) [address], [address] [place] [address] Platelet mean volume (Bld) [Entitic vol] 10.2 fL Normal 7-12 [facility] Comment on above: Performed By: #### P INR, 49475-4, 4679-7, FEPR, 6793-4, 2132- 9, 2276-4, 2284-8, 2731-8, 29520-6 #### [facility] ([id number]) [address], [address] [place] [address] Platelets (Bld) [#/Vol] 180 10*3/uL Normal 150-450 [facility] Comment on above: Performed By: #### P INR, 43011-5, 4679-7, FEPR, 6793-4, 2132- 9, 2276-4, 2284-8, 2731-8, 61326-7 #### [facility] ([id number]) [address], [address] [place] [address] RBC COUNT 4.13 X10E12/L Normal 4.10-5.70 [facility] Comment on above: Performed By: #### P INR, 43740-7, 4679-7, FEPR, 6793-4, 2132- 9, 2276-4, 2284-8, 2731-8, 98304-0 #### [facility] ([id number]) [address], [address] [place] [address] WBC (Bld) [#/Vol] 7.8 10*3/uL Normal 4.0-11.0 [facility] Comment on above: Performed By: #### P INR, 37672-3, 4679-7, FEPR, 6793-4, 2132- 9, 2276-4, 2284-8, 2731-8, 15595-0 #### [facility] ([id number]) [address], [address] [place] [address] Glucose Glucometer (BldC) [M ass/Vol]on 01-30-2024 Glucose [Mass/Vol] 279 mg/dL High 65 - 99 mg/dL [facility] Interpretation and review of laboratory results Abnormal [facility] Glucose [Mass/Vol] 279 mg/dL High 65-99 [facility] Glucose [Mass/Vol] 276 mg/dL High 65 - 99 mg/dL [facility] Interpretation and review of laboratory results Abnormal [facility] Glucose [Mass/Vol] 276 mg/dL High 65-99 [facility] Glucose [Mass/Vol] 161 mg/dL High 65 - 99 mg/dL [facility] Interpretation and review of laboratory results Abnormal [facility] Glucose [Mass/Vol] 161 mg/dL High 65-99 [facility] XR FEMUR RT 2+ VIEWSon 01-29 XR FEMUR RT 2+ VIEWS XR FEMUR RT 2+ VIEW S XR FEMUR RT 2+ VIEWS Clinical history:REMOVAL HARDWARE INTRAMEDULLARY NAIL/KATERYNA FEMUR right hip pain Comparison: 01/29/2024 Impression: Postoperative changes with new intramedullary kateryna placement. Near anatomic alignment. No evidence of immediate hardware complication. Finalized by Marc Paredes MD on 01/30/2024 1:43 PM Normal [facility] XR FEMUR RT 2+ VIEWS XR FEMUR [...] Ortega MD on 01/30/2024 6:37 AM Normal [facility] XR Femur - right 2 Viewson 0 01-30-2024 XR FEMUR RT 2+ VIEWS Clinical history:REMOVAL HARDWARE INTRAMEDULLARY NAIL/KATERYNA FEMUR right hip pain Comparison: 01/29/2024 Impression: Postoperative changes with new intramedullary kateryna placement. Near anatomic alignment. No evidence of immediate hardware complication. Finalized by Marc Paredes MD on 01/30/2024 1:43 PM [facility]ared[facility] - 01/30/2024 XR FEMUR RT 2+ VIEWS Clinical history:REMOVAL HARDWARE INTRAMEDULLARY NAIL/KATERYNA FEMUR right hip pain Comparison: 01/29/2024 Impression: Postoperative changes with new intramedullary kateryna placement. Near anatomic alignment. No evidence of immediate hardware complication. Finalized by Marc Paredes MD on 01/30/2024 1:43 PM [facility] Jun Ortega MD - 01/30/2024 Clinical history: [...] Jun Ortega MD on 01/30/2024 1:28 PM [facility] Radiology Study observation (narrative) [facility] Radiology Study observation (narrative) [facility] XR Femur - right 2 ViewsOrde red By: Marc Paredes on 01-30-2024 [facility] Work Phone: XR Femur - right 2 ViewsOrde red By: Jun Ortega on 01-30-2024 [facility] Work Phone: APTTon 01-29-2024 aPTT Coag (PPP) [Time] 29 s [facility] BASIC METABOLIC PANLon 01-28 Anion gap [Moles/Vol] 14 mmol/L Normal 5-[address] [facility] Comment on above: Performed By: #### P INR, 41837-0, 4679-7, FEPR, 6793-4, 2132- 9, 2276-4, 2284-8, 2731-8, 70405-4 #### [facility] ([id number]) [address], [address] [place] [address] Calcium [Mass/Vol] 9.5 mg/dL Normal 8.5-10.5 [facility] Comment on above: Performed By: #### P INR, 49219-6, 4679-7, FEPR, 6793-4, 2132- 9, 2276-4, 2284-8, 2731-8, 74719-0 #### [facility] ([id number]) [address], [address] [place] [address] Chloride [Moles/Vol] 95 mmol/L Low 98-109 [facility] Comment on above: Performed By: #### P INR, 06492-6, 4679-7, FEPR, 6793-4, 2132- 9, 2276-4, 2284-8, 2731-8, 76151-7 #### [facility] ([id number]) [address], [address] [place] [address] CO2 [Moles/Vol] 22 mmol/L Normal 22-32 [facility] Comment on above: Performed By: #### P INR, 35320-1, 4679-7, FEPR, 6793-4, 2132- 9, 2276-4, 2284-8, 2731-8, 71572-8 #### [facility] ([id number]) [address], [address] [place] [address] Creatinine [Mass/Vol] 0.54 mg/dL Low 0.60-1.[address] [facility] Comment on above: Result Comment: METH OD TRACEABLE TO IDMS STANDARD Performed By: #### P INR, 09320-4, 4679-7, FEPR, 6793-4, 2132-9, 2276-4, 2284-8, 2731-8, 30215-8 #### [facility] ([id number]) [address], [address] [place] [address] eGFR (CKD-EPI) NON-RACE DEPENDENT >90 Normal >59 [facility] Comment on above: Result Comment: Reported eGFR is based on the CKD-EPI 2020 equation that does not use a race coefficient. Performed By: #### P INR, 40523-5, 4679-7, FEPR, 6793-4, 2132-9, 2276-4, 2284-8, 2731-8, 82932-1 #### [facility] ([id number]) [address], [address] [place] [address] Glucose [Mass/Vol] 193 mg/dL High 65-99 [facility] Comment on above: Performed By: #### P INR, 24675-8, 4679-7, FEPR, 6793-4, 2132- 9, 2276-4, 2284-8, 2731-8, 01069-1 #### [facility] ([id number]) [address], [address] [place] [address] Potassium [Moles/Vol] 3.7 mmol/L Normal 3.5-5.[address] [facility] Comment on above: Performed By: #### P INR, 99788-8, 4679-7, FEPR, 6793-4, 2132- 9, 2276-4, 2284-8, 2731-8, 82135-7 #### [facility] ([id number]) [address], [address] [place] [address] Sodium [Moles/Vol] 131 mmol/L Low 134-146 [facility] Comment on above: Performed By: #### P INR, 86022-6, 4679-7, FEPR, 6793-4, 2132- 9, 2276-4, 2284-8, 2731-8, 04578-0 #### [facility] ([id number]) [address], [address] [place] [address] Urea nitrogen [Mass/Vol] 9 mg/dL Normal 5-23 [facility] Comment on above: Performed By: #### P INR, 19649-8, 4679-7, FEPR, 6793-4, 2132- 9, 2276-4, 2284-8, 2731-8, 26285-1 #### [facility] ([id number]) [address], [address] [place] [address] Anion gap [Moles/Vol] 12 mmol/L Normal 5-[address] [facility] Comment on above: Performed By: #### P INR, 77192-9, 4679-7, FEPR, 6793-4, 2132- 9, 2276-4, 2284-8, 2731-8, 32321-4 #### [facility] ([id number]) [address], [address] [place] [address] Calcium [Mass/Vol] 9.4 mg/dL Normal 8.5-10.5 [facility] Comment on above: Performed By: #### P INR, 43095-9, 4679-7, FEPR, 6793-4, 2132- 9, 2276-4, 2284-8, 2731-8, 14144-2 #### [facility] ([id number]) [address], [address] [place] [address] Chloride [Moles/Vol] 95 mmol/L Low 98-109 [facility] Comment on above: Performed By: #### P INR, 02486-7, 4679-7, FEPR, 6793-4, 2132- 9, 2276-4, 2284-8, 2731-8, 66086-0 #### [facility] ([id number]) [address], [address] [place] [address] CO2 [Moles/Vol] 24 mmol/L Normal 22-32 [facility] Comment on above: Performed By: #### P INR, 42835-5, 4679-7, FEPR, 6793-4, 2132- 9, 2276-4, 2284-8, 2731-8, 00285-4 #### [facility] ([id number]) [address] [place] [address] Creatinine [Mass/Vol] 0.51 mg/dL Low 0.60-1.[address] [facility] Comment on above: Result Comment: METH OD TRACEABLE TO IDMS STANDARD Performed By: #### P INR, 99263-6, 4679-7, FEPR, 6793-4, 2132-9, 2276-4, 2284-8, 2731-8, 33394-3 #### [facility] ([id number]) [address], [address] [place] [address] eGFR (CKD-EPI) NON-RACE DEPENDENT >90 Normal >59 [facility] Comment on above: Result Comment: Reported eGFR is based on the CKD-EPI 2020 equation that does not use a race coefficient. Performed By: #### P INR, 89096-2, 4679-7, FEPR, 6793-4, 2132-9, 2276-4, 2284-8, 2731-8, 47741-7 #### [facility] ([id number]) [address] [place] [address] Glucose [Mass/Vol] 212 mg/dL High 65-99 [facility] Comment on above: Performed By: #### P INR, 35631-9, 4679-7, FEPR, 6793-4, 2132- 9, 2276-4, 2284-8, 2731-8, 93412-3 #### [facility] ([id number]) [address], [address] [place] [address] Potassium [Moles/Vol] 3.7 mmol/L Normal 3.5-5.[address] [facility] Comment on above: Performed By: #### P INR, 91665-3, 4679-7, FEPR, 6793-4, 2132- 9, 2276-4, 2284-8, 2731-8, 34440-4 #### [facility] ([id number]) [address], [address] [place] [address] Sodium [Moles/Vol] 131 mmol/L Low 134-146 [facility] Comment on above: Performed By: #### P INR, 41174-9, 4679-7, FEPR, 6793-4, 2132- 9, 2276-4, 2284-8, 2731-8, 19832-7 #### [facility] ([id number]) [address], [address] [place] [address] Urea nitrogen [Mass/Vol] 9 mg/dL Normal 5-23 [facility] Comment on above: Performed By: #### P INR, 65027-0, 4679-7, FEPR, 6793-4, 2132- 9, 2276-4, 2284-8, 2731-8, 36716-3 #### [facility] ([id number]) [address], [address] [place] [address] Basic Metabolic Panelon 06- Anion gap [Moles/Vol] 14 mmol/L 5 - 15 mmol/L [facility] Calcium [Mass/Vol] 9.5 mg/dL 8.5 - 10. 5 mg/dL [facility] Chloride [Moles/Vol] 95 mmol/L Low 98 - 10 9 mmol/L [facility] CO2 [Moles/Vol] 22 mmol/L 22 - 32 mmol/L [facility] Creatinine [Mass/Vol] 0.54 mg/dL Low 0.60 - 1.30 mg/dL [facility] Comment on above: METHOD TRACEABLE TO IDMS STANDARD eGFR (CKD-EPI)non-race dependent - PINF [facility] Comment on above: Reported eGFR is based on the CKD-EPI 2020 equation that does not use a race coefficient. Glucose [Mass/Vol] 193 mg/dL High 65 - 99 mg/dL [facility] Interpretation and review of laboratory results Abnormal [facility] Potassium [Moles/Vol] 3.7 mmol/L 3.5 - 5.0 mmol/L [facility] Sodium [Moles/Vol] 131 mmol/L Low 134 - 146 mmol/L [facility] Urea nitrogen [Mass/Vol] 9 mg/dL 5 - 23 mg/dL [facility] CBC AND AUTO DIFFon 01-29-20 24 ABSOLUTE BASOPHIL 0.1 X10E9/L Normal 0.0-0.2 [facility] Comment on above: Performed By: #### P INR, 71398-7, 4679-7, FEPR, 6793-4, 2132- 9, 2276-4, 2284-8, 2731-8, 75554-7 #### [facility] ([id number]) [address], [address] [place] [address] ABSOLUTE NEUTROPHIL 7.4 X10E9/L High 1.5-6.6 [facility] Comment on above: Performed By: #### P INR, 65921-7, 4679-7, FEPR, 6793-4, 2132- 9, 2276-4, 2284-8, 2731-8, 30181-6 #### [facility] ([id number]) [address] [place] [address] Basophils/100 WBC (Bld) 0.6 % Normal [facility] Comment on above: Performed By: #### P INR, 65885-1, 4679-7, FEPR, 6793-4, 2132- 9, 2276-4, 2284-8, 2731-8, 94524-8 #### [facility] ([id number]) [address] [place] [address] Eosinophils (Bld) [#/Vol] 0.0 10*3/uL Normal 0.0-0.4 [facility] Comment on above: Performed By: #### P INR, 44779-8, 4679-7, FEPR, 6793-4, 2132- 9, 2276-4, 2284-8, 2731-8, 81780-1 #### [facility] ([id number]) [address], [address] [place] [address] Eosinophils/100 WBC (Bld) 0.2 % Normal [facility] Comment on above: Performed By: #### P INR, 81677-3, 4679-7, FEPR, 6793-4, 2132- 9, 2276-4, 2284-8, 2731-8, 58730-6 #### [facility] ([id number]) [address], [address] [place] [address] Erythrocyte distribution width (RBC) [Ratio] 15.6 % High 11.5-15.0 [facility] Comment on above: Performed By: #### P INR, 68863-4, 4679-7, FEPR, 6793-4, 2132- 9, 2276-4, 2284-8, 2731-8, 63949-0 #### [facility] ([id number]) [address], [address] [place] [address] Hematocrit (Bld) [Volume fraction] 33.6 % Low 39-49 [facility] Comment on above: Performed By: #### P INR, 53740-0, 4679-7, FEPR, 6793-4, 2132- 9, 2276-4, 2284-8, 2731-8, 09508-0 #### [facility] ([id number]) [address], [address] [place] [address] Hemoglobin (Bld) [Mass/Vol] 11.9 g/dL Low 13.0-17.0 [facility] Comment on above: Performed By: #### P INR, 36570-7, 4679-7, FEPR, 6793-4, 2132- 9, 2276-4, 2284-8, 2731-8, 77298-3 #### [facility] ([id number]) [address], [address] [place] [address] Lymphocytes (Bld) [#/Vol] 1.4 10*3/uL Normal 1.0-3.5 [facility] Comment on above: Performed By: #### P INR, 49810-3, 4679-7, FEPR, 6793-4, 2132- 9, 2276-4, 2284-8, 2731-8, 99849-5 #### [facility] ([id number]) [address], [facility] [address] [place] [address] Lymphocytes/100 WBC (Bld) 14.6 % Normal [facility] Comment on above: Performed By: #### P INR, 76909-4, 4679-7, FEPR, 6793-4, 2132- 9, 2276-4, 2284-8, 2731-8, 95493-1 #### [facility] ([id number]) [address], [address] [place] [address] MCH (RBC) [Entitic mass] 29.0 pg Normal 27-34 [facility] Comment on above: Performed By: #### P INR, 30513-3, 4679-7, FEPR, 6793-4, 2132- 9, 2276-4, 2284-8, 2731-8, 93473-9 #### [facility] ([id number]) [address], [address] [place] [address] MCHC (RBC) [Mass/Vol] 35.5 g/dL Normal 32-[address] [facility] Comment on above: Performed By: #### P INR, 82047-9, 4679-7, FEPR, 6793-4, 2132- 9, 2276-4, 2284-8, 2731-8, 06266-5 #### [facility] ([id number]) [address] [place] [address] MCV (RBC) [Entitic vol] 82 fL Normal 80-100 [facility] Comment on above: Performed By: #### P INR, 11636-2, 4679-7, FEPR, 6793-4, 2132- 9, 2276-4, 2284-8, 2731-8, 53275-0 #### [facility] ([id number]) [address], [address] [place] [address] Monocytes (Bld) [#/Vol] 0.6 10*3/uL Normal 0-0.9 [facility] Comment on above: Performed By: #### P INR, 61745-0, 4679-7, FEPR, 6793-4, 2132- 9, 2276-4, 2284-8, 2731-8, 04965-3 #### [facility] ([id number]) [address], [address] [place] [address] Monocytes/100 WBC (Bld) 6.6 % Normal [facility] Comment on above: Performed By: #### P INR, 04387-2, 4679-7, FEPR, 6793-4, 2132- 9, 2276-4, 2284-8, 2731-8, 22073-0 #### [facility] ([id number]) [address], [address] [place] [address] Neutrophils/100 WBC (Bld) 78.0 % Normal [facility] Comment on above: Performed By: #### P INR, 45022-8, 4679-7, FEPR, 6793-4, 2132- 9, 2276-4, 2284-8, 2731-8, 71510-7 #### [facility] ([id number]) [address], [address] [place] [address] Platelet mean volume (Bld) [Entitic vol] 10.1 fL Normal 7-12 [facility] Comment on above: Performed By: #### P INR, 75737-0, 4679-7, FEPR, 6793-4, 2132- 9, 2276-4, 2284-8, 2731-8, 00475-2 #### [facility] ([id number]) [address], [address] [place] [address] Platelets (Bld) [#/Vol] 192 10*3/uL Normal 150-450 [facility] Comment on above: Performed By: #### P INR, 71373-5, 4679-7, FEPR, 6793-4, 2132- 9, 2276-4, 2284-8, 2731-8, 23348-1 #### [facility] ([id number]) [address] [place] [address] RBC COUNT 4.11 X10E12/L Normal 4.10-5.70 [facility] Comment on above: Performed By: #### P INR, 71001-0, 4679-7, FEPR, 6793-4, 2132- 9, 2276-4, 2284-8, 2731-8, 96111-2 #### [facility] ([id number]) [address], [address] [place] [address] WBC (Bld) [#/Vol] 9.5 10*3/uL Normal 4.0-11.0 [facility] Comment on above: Performed By: #### P INR, 81699-4, 4679-7, FEPR, 6793-4, 2132- 9, 2276-4, 2284-8, 2731-8, 06222-8 #### [facility] ([id number]) [address], [address] [place] [address] CBC auto differentialon 01-12 Basophils (Bld) [#/Vol] 0.1 10*3/uL [facility] Basophils/100 WBC (Bld) 0.6 % [facility] Eosinophils (Bld) [#/Vol] 0.0 10*3/uL [facility] Eosinophils/100 WBC (Bld) 0.2 % [facility] Erythrocyte distribution width (RBC) [Ratio] 15.6 % High 11.5 - 15.0 % [facility] Hematocrit (Bld) [Volume fraction] 33.6 % Low 39 - 49 % [facility] Hemoglobin (Bld) [Mass/Vol] 11.9 g/dL Low 13.0 - 17.0 g/dL [facility] Interpretation and review of laboratory results Abnormal [facility] Lymphocytes (Bld) [#/Vol] 1.4 10*3/uL [facility] Lymphocytes/100 WBC (Bld) 14.6 % [facility] MCH (RBC) [Entitic mass] 29.0 pg 27 - 34 pg [facility] MCHC (RBC) [Mass/Vol] 35.5 g/dL 32 - 3 6 g/dL [facility] MCV (RBC) [Entitic vol] 82 fL 80 - 100 fL [facility] Monocytes (Bld) [#/Vol] 0.6 10*3/uL [facility] Monocytes/100 WBC (Bld) 6.6 % [facility] Neutrophils (Bld) [#/Vol] 7.4 10*3/uL High [facility] Neutrophils/100 WBC (Bld) 78.0 % [facility] Platelet mean volume (Bld) [Entitic vol] 10.1 fL 7 - 12 fL [facility] Platelets (Bld) [#/Vol] 192 10*3/uL [facility] RBC (Bld) [#/Vol] 4.11 10*6/uL [facility] WBC corrected for nucl RBC Auto (Bld) [#/Vol] 9.5 [facility] COMPLETE BLOOD COUNTon 01-28 Erythrocyte distribution width (RBC) [Ratio] 15.9 % High 11.5-15.0 [facility] Comment on above: Performed By: #### P INR, 50726-5, 4679-7, FEPR, 6793-4, 2132- 9, 2276-4, 2284-8, 2731-8, 03486-2 #### [facility] ([id number]) [address], [address] [place] [address] Hematocrit (Bld) [Volume fraction] 33.1 % Low 39-49 [facility] Comment on above: Performed By: #### P INR, 12442-1, 4679-7, FEPR, 6793-4, 2132- 9, 2276-4, 2284-8, 2731-8, 47793-2 #### [facility] ([id number]) [address], [address] [place] [address] Hemoglobin (Bld) [Mass/Vol] 11.4 g/dL Low 13.0-17.0 [facility] Comment on above: Performed By: #### P INR, 49353-9, 4679-7, FEPR, 6793-4, 2132- 9, 2276-4, 2284-8, 2731-8, 24667-6 #### [facility] ([id number]) [address], [address] [place] [address] MCH (RBC) [Entitic mass] 28.7 pg Normal 27-34 [facility] Comment on above: Performed By: #### P INR, 70596-1, 4679-7, FEPR, 6793-4, 2132- 9, 2276-4, 2284-8, 2731-8, 89749-9 #### [facility] ([id number]) [address], [address] [place] [address] MCHC (RBC) [Mass/Vol] 34.4 g/dL Normal 32-[address] [facility] Comment on above: Performed By: #### P INR, 53591-2, 4679-7, FEPR, 6793-4, 2132- 9, 2276-4, 2284-8, 2731-8, 48978-9 #### [facility] ([id number]) [address], [address] [place] [address] MCV (RBC) [Entitic vol] 83 fL Normal 80-100 [facility] Comment on above: Performed By: #### P INR, 36284-0, 4679-7, FEPR, 6793-4, 2132- 9, 2276-4, 2284-8, 2731-8, 13260-3 #### [facility] ([id number]) [address], [address] [place] [address] Platelet mean volume (Bld) [Entitic vol] 10.8 fL Normal 7-12 [facility] Comment on above: Performed By: #### P INR, 45415-9, 4679-7, FEPR, 6793-4, 2132- 9, 2276-4, 2284-8, 2731-8, 25551-3 #### [facility] ([id number]) [address], [address] [place] [address] Platelets (Bld) [#/Vol] 185 10*3/uL Normal 150-450 [facility] Comment on above: Performed By: #### P INR, 22362-6, 4679-7, FEPR, 6793-4, 2132- 9, 2276-4, 2284-8, 2731-8, 60544-2 #### [facility] ([id number]) [address], [address] [place] [address] RBC COUNT 3.97 X10E12/L Low 4.10-5.70 [facility] Comment on above: Performed By: #### P INR, 83712-8, 4679-7, FEPR, 6793-4, 2132- 9, 2276-4, 2284-8, 2731-8, 25520-8 #### [facility] ([id number]) [address], [address] [place] [address] WBC (Bld) [#/Vol] 10.2 10*3/uL Normal 4.0-11.0 [facility] Comment on above: Performed By: #### P INR, 29464-1, 4679-7, FEPR, 6793-4, 2132- 9, 2276-4, 2284-8, 2731-8, 35546-1 #### [facility] ([id number]) [address], [address] [place] [address] Cobalamin (Vitamin B12) [Mas s/Vol]on 01-29-2024 [facility] FERRITINon 01-29-2024 Ferritin [Mass/Vol] 220 ng/mL Normal 24-336 [facility] Comment on above: Performed By: #### P INR, 85795-4, 4679-7, FEPR, 6793-4, 2- 9, 2276-4, 2284-8, 2731-8, 03658-3 #### [facility] ([id number]) [address], [address] [place] [address] Ferritinon 01-29-2024 Ferritin [Mass/Vol] 220 ng/mL 24 - 336 ng/mL [facility] Ferritin [Mass/Vol]on 2023 [facility] Folateon 01-29-2024 Folate [Mass/Vol] 8.4 ng/mL 5.8 - PINF ng/mL [facility] Comment on above: NEW REFERENCE RANGE Folate [Mass/Vol]on 01-29-20 24 [facility] FOLIC ACID 8.4 ng/mL Normal >5.8 [facility] Comment on above: Result Comment: NEW REFERENCE RANGE Performed By: #### P INR, 08094-1, 4679-7, FEPR, 6793-4, 2-9, 2276-4, 2284-8, 2731-8, 95294-2 #### [facility] ([id number]) [address], [address] [place] [address] Glucose Glucometer (BldC) [M ass/Vol]on 01-29-2024 Glucose [Mass/Vol] 170 mg/dL High 65 - 99 mg/dL [facility] Interpretation and review of laboratory results Abnormal [facility] Glucose [Mass/Vol] 170 mg/dL High 65-99 [facility] Glucose [Mass/Vol] 185 mg/dL High 65 - 99 mg/dL [facility] Interpretation and review of laboratory results Abnormal [facility] Glucose [Mass/Vol] 185 mg/dL High 65-99 [facility] Glucose [Mass/Vol] 204 mg/dL High 65 - 99 mg/dL [facility] Interpretation and review of laboratory results Abnormal [facility] Glucose [Mass/Vol] 204 mg/dL High 65-99 [facility] Glucose [Mass/Vol] 199 mg/dL High 65-99 [facility] IRON PROFILEon 01-29-2024 Iron [Mass/Vol] 17 ug/dL Low 50-212 [facility] Comment on above: Performed By: #### P INR, 29469-0, 4679-7, FEPR, 6793-4, 2132- 9, 2276-4, 2284-8, 2731-8, 01290-5 #### [facility] ([id number]) [address], [address] [place] [address] IRON BINDING 357 ug/dL Normal 250-425 [facility] Comment on above: Performed By: #### P INR, 12077-3, 4679-7, FEPR, 6793-4, 2132- 9, 2276-4, 2284-8, 2731-8, 02412-4 #### [facility] ([id number]) [address], [address] [place] [address] IRON SATURATION 5 % SATURATION Low 20-50 [facility] Comment on above: Performed By: #### P INR, 84128-5, 4679-7, FEPR, 6793-4, 2132- 9, 2276-4, 2284-8, 2731-8, 39916-2 #### [facility] ([id number]) [address], [address] [place] [address] Iron and TIBCon 01-29-2024 Iron [Mass/Vol] 17 ug/dL Low 50 - 212 ug/dL [facility] Iron binding capacity [Mass/Vol] 357 ug/dL 250 - 425 ug/dL [facility] Iron saturation [Mass fraction] 5 Low [facility] No Panel Informationon 01-28 Interpretation and review of laboratory results Abnormal [facility] PROTIME AND INRon 01-29-2024 INR Coag (PPP) [Relative time] 1.4 {INR} High 0.8-1.1 [facility] Comment on above: Performed By: #### P INR, 76804-0, 4679-7, FEPR, 6793-4, 2132- 9, 2276-4, 2284-8, 2731-8, 64268-3 #### [facility] ([id number]) [address], [address] [place] [address] PT Coag (PPP) [Time] 15.6 s High 9.8-13.2 [facility] Comment on above: Performed By: #### P INR, 45717-1, 4679-7, FEPR, 6793-4, 2132- 9, 2276-4, 2284-8, 2731-8, 43591-9 #### [facility] ([id number]) [address], [address] [place] [address] Prealbuminon 01-29-2024 Prealbumin IA [Mass/Vol] 9 mg/dL Low 18 - 45 mg/dL [facility] Prealbumin IA [Mass/Vol]on 0 01-29-2024 Prealbumin [Mass/Vol] 9 mg/dL Low 18-[address] [facility] Comment on above: Performed By: #### P INR, 35406-7, 4679-7, FEPR, 6793-4, 2132- 9, 2276-4, 2284-8, 2731-8, 85306-7 #### [facility] ([id number]) [address], [address] [place] [address] Protime & INRon 01-29-2024 INR Coag (PPP) [Relative time] 1.4 {INR} High [facility] Interpretation and review of laboratory results Abnormal [facility] PT Coag (PPP) [Time] 15.6 s High [facility] Reticulocyteson 01-29-2024 Reticulocytes/100 RBC (Bld) 3.9 % High 0.4 - 2.2 % [facility] Reticulocytes/100 RBC (Bld)o n 01-29-2024 Interpretation and review of laboratory results Abnormal [facility] RETICULOCYTE COUNT 3.9 % High 0.4-2.2 [facility] Comment on above: Performed By: #### P INR, 30765-5, 4679-7, FEPR, 6793-4, 2132- 9, 2276-4, 2284-8, 2731-8, 40183-0 #### [facility] ([id number]) [address], [address] [place] [address] Type and screen(includes ind irect yolanda)on 01-29-2024 ABO O [facility] Rh Nom (Bld) Positive [facility] URINALYSISon 01-29-2024 Bilirubin Ql (U) Negative Normal NEG [facility] Comment on above: Performed By: #### P INR, 27566-9, 4679-7, FEPR, 6793-4, 2132- 9, 2276-4, 2284-8, 2731-8, 18286-4 #### [facility] ([id number]) [address], [address] [place] [address] BLOOD/HGB Negative Normal NEG [facility] Comment on above: Performed By: #### P INR, 81956-7, 4679-7, FEPR, 6793-4, 2132- 9, 2276-4, 2284-8, 2731-8, 50554-3 #### [facility] ([id number]) [address], [address] [place] [address] Color (U) YELLOW Normal YELLOW [facility] Comment on above: Performed By: #### P INR, 73554-2, 4679-7, FEPR, 6793-4, 2132- 9, 2276-4, 2284-8, 2731-8, 69131-9 #### [facility] ([id number]) [address], [address] [place] [address] Glucose Ql (U) Negative Normal NEG [facility] Comment on above: Performed By: #### P INR, 58950-1, 4679-7, FEPR, 6793-4, 2132- 9, 2276-4, 2284-8, 2731-8, 21875-0 #### [facility] ([id number]) [address], [address] [place] [address] Ketones Ql (U) Negative Normal NEG [facility] Comment on above: Performed By: #### P INR, 18287-8, 4679-7, FEPR, 6793-4, 2132- 9, 2276-4, 2284-8, 2731-8, 06471-9 #### [facility] ([id number]) [address], [address] [place] [address] Leukocyte esterase Test strip Ql (U) Negative Normal NEG [facility] Comment on above: Performed By: #### P INR, 93672-7, 4679-7, FEPR, 6793-4, 2132- 9, 2276-4, 2284-8, 2731-8, 64856-5 #### [facility] ([id number]) [address], [address] [place] [address] Nitrite Ql (U) Negative Normal NEG [facility] Comment on above: Performed By: #### P INR, 41516-7, 4679-7, FEPR, 6793-4, 2132- 9, 2276-4, 2284-8, 2731-8, 65583-5 #### [facility] ([id number]) [address], [address] [place] [address] pH (U) 6.5 [pH] Normal 5.0-8.5 [facility] Comment on above: Performed By: #### P INR, 93579-7, 4679-7, FEPR, 6793-4, 2132- 9, 2276-4, 2284-8, 2731-8, 35817-1 #### [facility] ([id number]) [address], [address] [place] [address] Protein Ql (U) Negative Normal NEG [facility] Comment on above: Performed By: #### P INR, 87356-5, 4679-7, FEPR, 6793-4, 2132- 9, 2276-4, 2284-8, 2731-8, 40274-9 #### [facility] ([id number]) [address], [address] [place] [address] Specific gravity (U) [Rel density] 1.018 Normal 1.003-1.03 5 [facility] Comment on above: Performed By: #### P INR, 15882-5, 4679-7, FEPR, 6793-4, 2132- 9, 2276-4, 2284-8, 2731-8, 24330-4 #### [facility] ([id number]) [address], [address] [place] [address] TURBIDITY CLEAR Normal CLEAR [facility] Comment on above: Performed By: #### P INR, 72525-4, 4679-7, FEPR, 6793-4, 2132- 9, 2276-4, 2284-8, 2731-8, 03506-3 #### [facility] ([id number]) [address], [address] [place] [address] Urobilinogen Qn (U) 4 {Caroline'U}/dL High <1.1 [facility] Comment on above: Performed By: #### P INR, 87253-0, 4679-7, FEPR, 6793-4, 2132- 9, 2276-4, 2284-8, 2731-8, 50661-1 #### [facility] ([id number]) [address] [place] [address] Urinalysison 01-29-2024 Bilirubin Ql (U) Negative Negative^N egative [facility] Color (U) YELLOW YELLOW^YEL LOW [facility] Glucose (U) [Mass/Vol] Negative Negative^N egative mg/dL [facility] Hemoglobin Auto test strip Ql (U) Negative Negative^N egative [facility] Interpretation and review of laboratory results Abnormal [facility] Ketones (U) [Mass/Vol] Negative Negative^N egative mg/dL [facility] Leukocyte esterase Auto test strip Ql (U) Negative Negative^N egative [facility] Nitrite Auto test strip Ql (U) Negative Negative^N egative [facility] pH (U) 6.5 [pH] 5.0 - 8.5 [facility] Protein (U) [Mass/Vol] Negative Negative^N egative mg/dL [facility] Specific gravity Refractometry automated (U) [Rel density] 1.018 1.003 - 1.035 [facility] Turbidity Ql (U) CLEAR CLEAR^LEANDRA R [facility] Urobilinogen Qn (U) 4 High NINF [facility] VITAMIN B12on 01-29-2024 Cobalamin (Vitamin B12) [Mass/Vol] 307 pg/mL Normal 180-914 [facility] Comment on above: Performed By: #### P INR, 52989-9, 4679-7, FEPR, 6793-4, 2132- 9, 2276-4, 2284-8, 2731-8, 70418-0 #### [facility] ([id number]) [address], [address] [place] [address] Vitamin B12on 01-29-2024 Cobalamin (Vitamin B12) [Mass/Vol] 307 pg/mL 180 - 914 pg/mL [facility] Vitamin D 25 hydroxyon 01-28 Vitamin D+Metabolites [Mass/Vol] 31.7 ng/mL 30 - 100 ng/mL [facility] Comment on above: Vitamin D status 25 [place] Vitamin D Deficiency <20 ng/mL Insufficiency 20-29 ng/mL Sufficiency 30-100 ng/mL Toxicity >100 ng/mL NOTE: A pediatric reference range has not been established by the switching clerk of this kit. The [place] [employer] recommends a Vitamin D level of = or >20ng/mL in infants and children. Vitamin D+Metabolites [Mass/ Vol]on 01-29-2024 [facility] VITAMIN D 25 HYD TOT 31.7 ng/mL Normal 30-100 [facility] Comment on above: Result Comment: Vitamin D status 25 [place] Vitamin D Deficiency <20 ng/mL Insufficiency 20-29 ng/mL Sufficiency 30-100 ng/mL Toxicity >100 ng/mL NOTE: A pediatric reference range has not been established by the switching clerk of this kit. The [place] [employer] recommends a Vitamin D level of = or >20ng/mL in infants and children. Performed By: #### P INR, 05580-9, 4679-7, FEPR, 6793-4, 2131-9, 6-4, 2284-8, 2731-8, 80331-8 #### [facility] ([id number]) [address] [place] [address], [address] [place] [address] aPTT Coag (PPP) [Time]on aPTT Coag (Bld) [Time] 29 s Normal 26-37 [facility] Comment on above: Performed By: #### P INR, 19270-5, 4679-7, FEPR, 6793-4, 2131- 9, 6-4, 2284-8, 2731-8, 95107-1 #### [facility] ([id number]) [address], [address] [place] [address] Glucose Glucometer (BldC) [M ass/Vol]on 01-28-2024 Glucose [Mass/Vol] 194 mg/dL High 65-99 [facility] Glucose [Mass/Vol] 244 mg/dL High 65-99 [facility] Glucose [Mass/Vol] 203 mg/dL High 65-99 [facility] CBC AND AUTO DIFFon 01-27-20 ABSOLUTE BASOPHIL 0.0 X10E9/L Normal 0.0-0.2 [facility] Comment on above: Performed By: #### P INR, 77659-8, 4679-7, FEPR, 6793-4, 2132- 9, 2276-4, 2284-8, 2731-8, 05433-3 #### [facility] ([id number]) [address], [address] [place] [address] ABSOLUTE NEUTROPHIL 6.2 X10E9/L Normal 1.5-6.6 [facility] Comment on above: Performed By: #### P INR, 27118-3, 4679-7, FEPR, 6793-4, 2132- 9, 2276-4, 2284-8, 2731-8, 08866-0 #### [facility] ([id number]) [address], [address] [place] [address] Basophils/100 WBC (Bld) 0.5 % Normal [facility] Comment on above: Performed By: #### P INR, 33994-5, 4679-7, FEPR, 6793-4, 2132- 9, 2276-4, 2284-8, 2731-8, 50979-5 #### [facility] ([id number]) [address], [address] [place] [address] Eosinophils (Bld) [#/Vol] 0.0 10*3/uL Normal 0.0-0.4 [facility] Comment on above: Performed By: #### P INR, 76524-0, 4679-7, FEPR, 6793-4, 2132- 9, 2276-4, 2284-8, 2731-8, 34305-9 #### [facility] ([id number]) [address], [address] [place] [address] Eosinophils/100 WBC (Bld) 0.2 % Normal [facility] Comment on above: Performed By: #### P INR, 15596-5, 4679-7, FEPR, 6793-4, 2132- 9, 2276-4, 2284-8, 2731-8, 68293-7 #### [facility] ([id number]) [address], [address] [place] [address] Erythrocyte distribution width (RBC) [Ratio] 16.0 % High 11.5-15.0 [facility] Comment on above: Performed By: #### P INR, 67675-8, 4679-7, FEPR, 6793-4, 2132- 9, 2276-4, 2284-8, 2731-8, 50766-0 #### [facility] ([id number]) [address], [address] [place] [address] Hematocrit (Bld) [Volume fraction] 30.5 % Low 39-49 [facility] Comment on above: Performed By: #### P INR, 81940-5, 4679-7, FEPR, 6793-4, 2132- 9, 2276-4, 2284-8, 2731-8, 12376-1 #### [facility] ([id number]) [address], [address] [place] [address] Hemoglobin (Bld) [Mass/Vol] 10.5 g/dL Low 13.0-17.0 [facility] Comment on above: Performed By: #### P INR, 71888-2, 4679-7, FEPR, 6793-4, 2132- 9, 2276-4, 2284-8, 2731-8, 66190-2 #### [facility] ([id number]) [address], [address] [place] [address] Lymphocytes (Bld) [#/Vol] 1.7 10*3/uL Normal 1.0-3.5 [facility] Comment on above: Performed By: #### P INR, 34405-8, 4679-7, FEPR, 6793-4, 2132- 9, 2276-4, 2284-8, 2731-8, 18918-1 #### [facility] ([id number]) [address], [address] [place] [address] Lymphocytes/100 WBC (Bld) 19.8 % Normal [facility] Comment on above: Performed By: #### P INR, 98094-5, 4679-7, FEPR, 6793-4, 2132- 9, 2276-4, 2284-8, 2731-8, 76042-5 #### [facility] ([id number]) [address], [address] [place] [address] MCH (RBC) [Entitic mass] 28.6 pg Normal 27-34 [facility] Comment on above: Performed By: #### P INR, 43887-0, 4679-7, FEPR, 6793-4, 2132- 9, 2276-4, 2284-8, 2731-8, 93227-1 #### [facility] ([id number]) [address], [address] [place] [address] MCHC (RBC) [Mass/Vol] 34.3 g/dL Normal 32-[address] [facility] Comment on above: Performed By: #### P INR, 65391-3, 4679-7, FEPR, 6793-4, 2132- 9, 2276-4, 2284-8, 2731-8, 84322-0 #### [facility] ([id number]) [address], [address] [place] [address] MCV (RBC) [Entitic vol] 83 fL Normal 80-100 [facility] Comment on above: Performed By: #### P INR, 90569-8, 4679-7, FEPR, 6793-4, 2132- 9, 2276-4, 2284-8, 2731-8, 40703-9 #### [facility] ([id number]) [address], [address] [place] [address] Monocytes (Bld) [#/Vol] 0.6 10*3/uL Normal 0-0.9 [facility] Comment on above: Performed By: #### P INR, 14696-4, 4679-7, FEPR, 6793-4, 2132- 9, 2276-4, 2284-8, 2731-8, 22600-5 #### [facility] ([id number]) [address], [address] [place] [address] Monocytes/100 WBC (Bld) 7.2 % Normal [facility] Comment on above: Performed By: #### P INR, 42073-4, 4679-7, FEPR, 6793-4, 2132- 9, 2276-4, 2284-8, 2731-8, 76226-0 #### [facility] ([id number]) [address], [address] [place] [address] Neutrophils/100 WBC (Bld) 72.3 % Normal [facility] Comment on above: Performed By: #### P INR, 45833-6, 4679-7, FEPR, 6793-4, 2132- 9, 2276-4, 2284-8, 2731-8, 21143-9 #### [facility] ([id number]) [address], [address] [place] [address] Platelet mean volume (Bld) [Entitic vol] 10.8 fL Normal 7-12 [facility] Comment on above: Performed By: #### P INR, 54714-6, 4679-7, FEPR, 6793-4, 2132- 9, 2276-4, 2284-8, 2731-8, 55587-4 #### [facility] ([id number]) [address], [address] [place] [address] Platelets (Bld) [#/Vol] 172 10*3/uL Normal 150-450 [facility] Comment on above: Performed By: #### P INR, 55204-0, 4679-7, FEPR, 6793-4, 2132- 9, 2276-4, 2284-8, 2731-8, 33936-3 #### [facility] ([id number]) [address], [address] [place] [address] RBC COUNT 3.66 X10E12/L Low 4.10-5.70 [facility] Comment on above: Performed By: #### P INR, 52399-1, 4679-7, FEPR, 6793-4, 2132- 9, 2276-4, 2284-8, 2731-8, 88469-3 #### [facility] ([id number]) [address], [address] [place] [address] WBC (Bld) [#/Vol] 8.6 10*3/uL Normal 4.0-11.0 [facility] Comment on above: Performed By: #### P INR, 67271-6, 4679-7, FEPR, 6793-4, 2132- 9, 2276-4, 2284-8, 2731-8, 57990-9 #### [facility] ([id number]) [address] [place] [address] CT HIP RT WO CONTon 01-27-20 24 [...] Paredes MD on 01/27/2024 10:58 AM Normal [facility] Glucose Glucometer (dC) [M ass/Vol]on 01-27-2024 Glucose [Mass/Vol] 170 mg/dL High 65-99 [facility] Glucose [Mass/Vol] 195 mg/dL High 65-99 [facility] Glucose [Mass/Vol] 225 mg/dL High 65-99 [facility] Glucose [Mass/Vol] 217 mg/dL High 65-99 [facility] XR HIP RT 2-3 VIEWS [...] Porras MD on 01/27/2024 6:44 AM Normal [facility] Glucose Glucometer (BldC) [M ass/Vol]on 01-26-2024 Glucose [Mass/Vol] 310 mg/dL High 65-99 [facility] Glucose [Mass/Vol] 267 mg/dL High 65-99 [facility] Glucose [Mass/Vol] 190 mg/dL High 65-99 [facility] Glucose [Mass/Vol] 221 mg/dL High 65-99 [facility] Glucose [Mass/Vol] 206 mg/dL High 65-99 [facility] BASIC METABOLIC PANLon 01-24 Anion gap [Moles/Vol] 9 mmol/L Normal 5-[address] [facility] Comment on above: Performed By: #### P INR, 60127-0, 4679-7, FEPR, 6793-4, 2132- 9, 2276-4, 2284-8, 2731-8, 76131-3 #### [facility] ([id number]) [address], [address] [place] [address] Calcium [Mass/Vol] 9.7 mg/dL Normal 8.5-10.5 [facility] Comment on above: Performed By: #### P INR, 71296-2, 4679-7, FEPR, 6793-4, 2132- 9, 2276-4, 2284-8, 2731-8, 36387-0 #### [facility] ([id number]) [address], [address] [place] [address] Chloride [Moles/Vol] 96 mmol/L Low 98-109 [facility] Comment on above: Performed By: #### P INR, 97874-8, 4679-7, FEPR, 6793-4, 2132- 9, 2276-4, 2284-8, 2731-8, 75514-4 #### [facility] ([id number]) [address] [place] [address] CO2 [Moles/Vol] 29 mmol/L Normal 22-32 [facility] [facility] Comment on above: Performed By: #### P INR, 38531-1, 4679-7, FEPR, 6793-4, 2132- 9, 2276-4, 2284-8, 2731-8, 96219-3 #### [facility] ([id number]) [address], [address] [place] [address] Creatinine [Mass/Vol] 0.95 mg/dL Normal 0.60-1.[address] [facility] Comment on above: Result Comment: METH OD TRACEABLE TO IDMS STANDARD Performed By: #### P INR, 89482-8, 4679-7, FEPR, 6793-4, 2132-9, 2276-4, 2284-8, 2731-8, 52171-6 #### [facility] ([id number]) [address], [address] [place] [address] eGFR (CKD-EPI) NON-RACE DEPENDENT >90 Normal >59 [facility] Comment on above: Result Comment: Reported eGFR is based on the CKD-EPI 2020 equation that does not use a race coefficient. Performed By: #### P INR, 56277-5, 4679-7, FEPR, 6793-4, 2132-9, 2276-4, 2284-8, 2731-8, 88534-5 #### [facility] ([id number]) [address], [address] [place] [address] Glucose [Mass/Vol] 149 mg/dL High 65-99 [facility] Comment on above: Performed By: #### P INR, 29984-1, 4679-7, FEPR, 6793-4, 2132- 9, 2276-4, 2284-8, 2731-8, 41951-9 #### [facility] ([id number]) [address], [address] [place] [address] Potassium [Moles/Vol] 3.8 mmol/L Normal 3.5-5.[address] [facility] Comment on above: Performed By: #### P INR, 03602-8, 4679-7, FEPR, 6793-4, 2132- 9, 2276-4, 2284-8, 2731-8, 12909-8 #### [facility] ([id number]) [address], [address] [place] [address] Sodium [Moles/Vol] 134 mmol/L Normal 134-146 [facility] Comment on above: Performed By: #### P INR, 41918-5, 4679-7, FEPR, 6793-4, 2132- 9, 2276-4, 2284-8, 2731-8, 53847-8 #### [facility] ([id number]) [address], [address] [place] [address] Urea nitrogen [Mass/Vol] 20 mg/dL Normal 5-23 [facility] Comment on above: Performed By: #### P INR, 25264-6, 4679-7, FEPR, 6793-4, 2132- 9, 2276-4, 2284-8, 2731-8, 35220-1 #### [facility] ([id number]) [address], [address] [place] [address] COMPLETE BLOOD COUNTon 01-24 Erythrocyte distribution width (RBC) [Ratio] 16.5 % High 11.5-15.0 [facility] Comment on above: Performed By: #### P INR, 01301-2, 4679-7, FEPR, 6793-4, 2132- 9, 2276-4, 2284-8, 2731-8, 23927-3 #### [facility] ([id number]) [address], [address] [place] [address] Hematocrit (Bld) [Volume fraction] 37.9 % Low 39-49 [facility] Comment on above: Performed By: #### P INR, 32105-9, 4679-7, FEPR, 6793-4, 2132- 9, 2276-4, 2284-8, 2731-8, 88755-6 #### [facility] ([id number]) [address], [address] [place] [address] Hemoglobin (Bld) [Mass/Vol] 13.0 g/dL Normal 13.0-17.0 [facility] Comment on above: Performed By: #### P INR, 98169-3, 4679-7, FEPR, 6793-4, 2132- 9, 2276-4, 2284-8, 2731-8, 51189-9 #### [facility] ([id number]) [address], [address] [place] [address] MCH (RBC) [Entitic mass] 29.0 pg Normal 27-34 [facility] Comment on above: Performed By: #### P INR, 19359-4, 4679-7, FEPR, 6793-4, 2132- 9, 2276-4, 2284-8, 2731-8, 46733-0 #### [facility] ([id number]) [address], [address] [place] [address] MCHC (RBC) [Mass/Vol] 34.2 g/dL Normal 32-[address] [facility] Comment on above: Performed By: #### P INR, 94359-6, 4679-7, FEPR, 6793-4, 2132- 9, 2276-4, 2284-8, 2731-8, 44891-8 #### [facility] ([id number]) [address], [address] [place] [address] MCV (RBC) [Entitic vol] 85 fL Normal 80-100 [facility] Comment on above: Performed By: #### P INR, 23354-0, 4679-7, FEPR, 6793-4, 2132- 9, 2276-4, 2284-8, 2731-8, 85431-9 #### [facility] ([id number]) [address], [address] [place] [address] Platelet mean volume (Bld) [Entitic vol] 10.4 fL Normal 7-12 [facility] Comment on above: Performed By: #### P INR, 36013-8, 4679-7, FEPR, 6793-4, 2132- 9, 2276-4, 2284-8, 2731-8, 01692-8 #### [facility] ([id number]) [address], [address] [place] [address] Platelets (Bld) [#/Vol] 135 10*3/uL Low 150-450 [facility] Comment on above: Performed By: #### P INR, 60664-9, 4679-7, FEPR, 6793-4, 2132- 9, 2276-4, 2284-8, 2731-8, 98053-5 #### [facility] ([id number]) [address], [address] [place] [address] RBC COUNT 4.47 X10E12/L Normal 4.10-5.70 [facility] Comment on above: Performed By: #### P INR, 71711-6, 4679-7, FEPR, 6793-4, 2132- 9, 2276-4, 2284-8, 2731-8, 24038-3 #### [facility] ([id number]) [address], [address] [place] [address] WBC (Bld) [#/Vol] 9.4 10*3/uL Normal 4.0-11.0 [facility] Comment on above: Performed By: #### P INR, 43025-8, 4679-7, FEPR, 6793-4, 2132- 9, 2276-4, 2284-8, 2731-8, 83665-0 #### [facility] ([id number]) [address], [address] [place] [address] Glucose Glucometer (BldC) [M ass/Vol]on 01-25-2024 Glucose [Mass/Vol] 155 mg/dL High 65-99 [facility] Glucose [Mass/Vol] 246 mg/dL High 65-99 [facility] Glucose [Mass/Vol] 162 mg/dL High 65-99 [facility] Glucose [Mass/Vol] 163 mg/dL High 65-99 [facility] Glucose Glucometer (BldC) [M ass/Vol]on 01-24-2024 Glucose [Mass/Vol] 113 mg/dL High 65-99 [facility] Glucose [Mass/Vol] 187 mg/dL High 65-99 [facility] Glucose [Mass/Vol] 161 mg/dL High 65-99 [facility] Glucose [Mass/Vol] 152 mg/dL High 65-99 [facility] COMPLETE BLOOD COUNTon 01-22 Erythrocyte distribution width (RBC) [Ratio] 15.9 % High 11.5-15.0 [facility] Comment on above: Performed By: #### P INR, 28558-5, 4679-7, FEPR, 6793-4, 2- 9, 2276-4, 2284-8, 2731-8, 09773-4 #### [facility] ([id number]) [address], [address] [place] [address] Hematocrit (Bld) [Volume fraction] 36.3 % Low 39-49 [facility] Comment on above: Performed By: #### P INR, 36405-5, 4679-7, FEPR, 6793-4, 2- 9, 2276-4, 2284-8, 2731-8, 13840-8 #### [facility] ([id number]) [address], [address] [place] [address] Hemoglobin (Bld) [Mass/Vol] 12.5 g/dL Low 13.0-17.0 [facility] Comment on above: Performed By: #### P INR, 46273-0, 4679-7, FEPR, 6793-4, 2132- 9, 2276-4, 2284-8, 2731-8, 01205-5 #### [facility] ([id number]) [address], [address] [place] [address] MCH (RBC) [Entitic mass] 28.9 pg Normal 27-34 [facility] Comment on above: Performed By: #### P INR, 52331-0, 4679-7, FEPR, 6793-4, 2132- 9, 2276-4, 2284-8, 2731-8, 60238-4 #### [facility] ([id number]) [address], [address] [place] [address] MCHC (RBC) [Mass/Vol] 34.4 g/dL Normal 32-[address] [facility] Comment on above: Performed By: #### P INR, 91520-9, 4679-7, FEPR, 6793-4, 2132- 9, 2276-4, 2284-8, 2731-8, 95978-3 #### [facility] ([id number]) [address], [address] [place] [address] MCV (RBC) [Entitic vol] 84 fL Normal 80-100 [facility] Comment on above: Performed By: #### P INR, 71562-5, 4679-7, FEPR, 6793-4, 2132- 9, 2276-4, 2284-8, 2731-8, 23578-8 #### [facility] ([id number]) [address], [address] [place] [address] Platelet mean volume (Bld) [Entitic vol] 11.5 fL Normal 7-12 [facility] Comment on above: Performed By: #### P INR, 77021-9, 4679-7, FEPR, 6793-4, 2132- 9, 2276-4, 2284-8, 2731-8, 80992-6 #### [facility] ([id number]) [address], [address] [place] [address] Platelets (Bld) [#/Vol] 135 10*3/uL Low 150-450 [facility] Comment on above: Performed By: #### P INR, 04452-8, 4679-7, FEPR, 6793-4, 2132- 9, 2276-4, 2284-8, 2731-8, 17860-2 #### [facility] ([id number]) [address] [place] [address] RBC COUNT 4.34 X10E12/L Normal 4.10-5.70 [facility] Comment on above: Performed By: #### P INR, 20862-1, 4679-7, FEPR, 6793-4, 2132- 9, 2276-4, 2284-8, 2731-8, 60203-3 #### [facility] ([id number]) [address], [address] [place] [address] WBC (Bld) [#/Vol] 7.8 10*3/uL Normal 4.0-11.0 [facility] Comment on above: Performed By: #### P INR, 84715-9, 4679-7, FEPR, 6793-4, 2132- 9, 2276-4, 2284-8, 2731-8, 56737-0 #### [facility] ([id number]) [address], [address] [place] [address] COMPREHENSIVE METABOLIC PANE Benito 01-23-2024 Albumin [Mass/Vol] 4.0 g/dL Normal 3.2-5.3 [facility] Comment on above: Performed By: #### P INR, 16306-6, 4679-7, FEPR, 6793-4, 2132- 9, 2276-4, 2284-8, 2731-8, 59958-8 #### [facility] ([id number]) [address], [address] [place] [address] ALP [Catalytic activity/Vol] 47 U/L Normal 39-130 [facility] Comment on above: Performed By: #### P INR, 31665-1, 4679-7, FEPR, 6793-4, 2132- 9, 2276-4, 2284-8, 2731-8, 93176-6 #### [facility] ([id number]) [address] [place] [address] ALT [Catalytic activity/Vol] 9 U/L Normal 0-40 [facility] Comment on above: Performed By: #### P INR, 45878-3, 4679-7, FEPR, 6793-4, 2132- 9, 2276-4, 2284-8, 2731-8, 99046-8 #### [facility] ([id number]) [address] [place] [address] Anion gap [Moles/Vol] 12 mmol/L Normal 5-[address] [facility] Comment on above: Performed By: #### P INR, 72707-5, 4679-7, FEPR, 6793-4, 2132- 9, 2276-4, 2284-8, 2731-8, 86946-7 #### [facility] ([id number]) [address], [address] [place] [address] AST [Catalytic activity/Vol] 21 U/L Normal 0-41 [facility] Comment on above: Performed By: #### P INR, 54152-2, 4679-7, FEPR, 6793-4, 2132- 9, 2276-4, 2284-8, 2731-8, 51519-5 #### [facility] ([id number]) [address], [address] [place] [address] Bilirubin [Mass/Vol] 0.9 mg/dL Normal 0.3-1.2 [facility] Comment on above: Performed By: #### P INR, 33767-8, 4679-7, FEPR, 6793-4, 2132- 9, 2276-4, 2284-8, 2731-8, 37170-6 #### [facility] ([id number]) [address], [address] [place] [address] Calcium [Mass/Vol] 9.3 mg/dL Normal 8.5-10.5 [facility] Comment on above: Performed By: #### P INR, 19802-4, 4679-7, FEPR, 6793-4, 2132- 9, 2276-4, 2284-8, 2731-8, 13458-1 #### [facility] ([id number]) [address], [address] [place] [address] Chloride [Moles/Vol] 99 mmol/L Normal 98-109 [facility] Comment on above: Performed By: #### P INR, 50779-4, 4679-7, FEPR, 6793-4, 2132- 9, 2276-4, 2284-8, 2731-8, 74696-3 #### [facility] ([id number]) [address], [address] [place] [address] CO2 [Moles/Vol] 22 mmol/L Normal 22-32 [facility] Comment on above: Performed By: #### P INR, 63342-4, 4679-7, FEPR, 6793-4, 2132- 9, 2276-4, 2284-8, 2731-8, 05632-0 #### [facility] ([id number]) [address], [address] [place] [address] Creatinine [Mass/Vol] 0.66 mg/dL Normal 0.60-1.[address] [facility] Comment on above: Result Comment: METH OD TRACEABLE TO IDMS STANDARD Performed By: #### P INR, 24793-2, 4679-7, FEPR, 6793-4, 2132-9, 2276-4, 2284-8, 2731-8, 06617-2 #### [facility] ([id number]) [address], [address] [place] [address] eGFR (CKD-EPI) NON-RACE DEPENDENT >90 Normal >59 [facility] Comment on above: Result Comment: Reported eGFR is based on the CKD-EPI 2020 equation that does not use a race coefficient. Performed By: #### P INR, 95881-8, 4679-7, FEPR, 6793-4, 2132-9, 2276-4, 2284-8, 2731-8, 44430-7 #### [facility] ([id number]) [address], [address] [place] [address] Glucose [Mass/Vol] 164 mg/dL High 65-99 [facility] Comment on above: Performed By: #### P INR, 43215-6, 4679-7, FEPR, 6793-4, 2132- 9, 2276-4, 2284-8, 2731-8, 21733-3 #### [facility] ([id number]) [address], [address] [place] [address] Potassium [Moles/Vol] 4.0 mmol/L Normal 3.5-5.[address] [facility] Comment on above: Performed By: #### P INR, 13265-8, 4679-7, FEPR, 6793-4, 2132- 9, 2276-4, 2284-8, 2731-8, 89237-5 #### [facility] ([id number]) [address], [address] [place] [address] Protein [Mass/Vol] 7.1 g/dL Normal 6.0-8.0 [facility] Comment on above: Performed By: #### P INR, 95997-9, 4679-7, FEPR, 6793-4, 2132- 9, 2276-4, 2284-8, 2731-8, 75002-8 #### [facility] ([id number]) [address], [address] [place] [address] Sodium [Moles/Vol] 133 mmol/L Low 134-146 [facility] Comment on above: Performed By: #### P INR, 00013-5, 4679-7, FEPR, 6793-4, 2132- 9, 2276-4, 2284-8, 2731-8, 81364-4 #### [facility] ([id number]) [address], [address] [place] [address] Urea nitrogen [Mass/Vol] 11 mg/dL Normal 5-23 [facility] Comment on above: Performed By: #### P INR, 14143-5, 4679-7, FEPR, 6793-4, 2- 9, 2276-4, 2284-8, 2731-8, 68969-2 #### [facility] ([id number]) [address], [address] [place] [address] Glucose Glucometer (BldC) [M ass/Vol]on 01-23-2024 Glucose [Mass/Vol] 171 mg/dL High 65-99 [facility] Glucose [Mass/Vol] 143 mg/dL High 65-99 [facility] Glucose [Mass/Vol] 175 mg/dL High 65-99 [facility] Glucose [Mass/Vol] 169 mg/dL High 65-99 [facility] Glucose [Mass/Vol] 157 mg/dL High 65-99 [facility] BASIC METABOLIC PANLon 01-21 Anion gap [Moles/Vol] 11 mmol/L Normal 5-15 [facility] Comment on above: Performed By: #### P INR, 63106-9, 4679-7, FEPR, 6793-4, 2132- 9, 2276-4, 2284-8, 2731-8, 96952-0 #### [facility] ([id number]) [address], [address] [place] [address] Calcium [Mass/Vol] 9.3 mg/dL Normal 8.5-10.5 [facility] Comment on above: Performed By: #### P INR, 58787-4, 4679-7, FEPR, 6793-4, 2132- 9, 2276-4, 2284-8, 2731-8, 25508-2 #### [facility] ([id number]) [address], [address] [place] [address] Chloride [Moles/Vol] 101 mmol/L Normal 98-109 [facility] Comment on above: Performed By: #### P INR, 53654-1, 4679-7, FEPR, 6793-4, 2132- 9, 2276-4, 2284-8, 2731-8, 67929-3 #### [facility] ([id number]) [address], [address] [place] [address] CO2 [Moles/Vol] 26 mmol/L Normal 22-32 [facility] Comment on above: Performed By: #### P INR, 78674-5, 4679-7, FEPR, 6793-4, 2132- 9, 2276-4, 2284-8, 2731-8, 45932-4 #### [facility] ([id number]) [address], [address] [place] [address] Creatinine [Mass/Vol] 0.62 mg/dL Normal 0.60-1.[address] [facility] Comment on above: Result Comment: METH OD TRACEABLE TO IDMS STANDARD Performed By: #### P INR, 53115-8, 4679-7, FEPR, 6793-4, 2132-9, 2276-4, 2284-8, 2731-8, 08090-7 #### [facility] ([id number]) [address], [address] [place] [address] eGFR (CKD-EPI) NON-RACE DEPENDENT >90 Normal >59 [facility] Comment on above: Result Comment: Reported eGFR is based on the CKD-EPI 2020 equation that does not use a race coefficient. Performed By: #### P INR, 37069-3, 4679-7, FEPR, 6793-4, 2132-9, 2276-4, 2284-8, 2731-8, 38651-3 #### [facility] ([id number]) [address], [address] [place] [address] Glucose [Mass/Vol] 150 mg/dL High 65-99 [facility] Comment on above: Performed By: #### P INR, 54477-9, 4679-7, FEPR, 6793-4, 2132- 9, 2276-4, 2284-8, 2731-8, 43842-3 #### [facility] ([id number]) [address], [address] [place] [address] Potassium [Moles/Vol] 4.0 mmol/L Normal 3.5-5.[address] [facility] Comment on above: Performed By: #### P INR, 95874-0, 4679-7, FEPR, 6793-4, 2132- 9, 2276-4, 2284-8, 2731-8, 94034-4 #### [facility] ([id number]) [address], [address] [place] [address] Sodium [Moles/Vol] 138 mmol/L Normal 134-146 [facility] Comment on above: Performed By: #### P INR, 34073-5, 4679-7, FEPR, 6793-4, 2132- 9, 2276-4, 2284-8, 2731-8, 19608-0 #### [facility] ([id number]) [address], [address] [place] [address] Urea nitrogen [Mass/Vol] 12 mg/dL Normal 5-23 [facility] Comment on above: Performed By: #### P INR, 75217-4, 4679-7, FEPR, 6793-4, 2132- 9, 2276-4, 2284-8, 2731-8, 85162-8 #### [facility] ([id number]) [address], [address] [place] [address] Basic Metabolic Panelon 01-12 Anion gap [Moles/Vol] 11 mmol/L 5 - 15 mmol/L [facility] Calcium [Mass/Vol] 9.3 mg/dL 8.5 - 10. 5 mg/dL [facility] Chloride [Moles/Vol] 101 mmol/L 98 - 10 9 mmol/L [facility] CO2 [Moles/Vol] 26 mmol/L 22 - 32 mmol/L [facility] Creatinine [Mass/Vol] 0.62 mg/dL 0.60 - 1.30 mg/dL [facility] Comment on above: METHOD TRACEABLE TO IDWA STANDARD eGFR (CKD-EPI)non-race dependent - PINF [facility] Comment on above: Reported eGFR is based on the CKD-EPI 2020 equation that does not use a race coefficient. Glucose [Mass/Vol] 150 mg/dL High 65 - 99 mg/dL [facility] Interpretation and review of laboratory results Abnormal [facility] Potassium [Moles/Vol] 4.0 mmol/L 3.5 - 5.0 mmol/L [facility] Sodium [Moles/Vol] 138 mmol/L 134 - 146 mmol/L [facility] Urea nitrogen [Mass/Vol] 12 mg/dL 5 - 23 mg/dL [facility] CBC AND AUTO DIFFon 01-22-20 24 ABSOLUTE BASOPHIL 0.0 X10E9/L Normal 0.0-0.2 [facility] Comment on above: Performed By: #### P INR, 62255-5, 4679-7, FEPR, 6793-4, 2132- 9, 2276-4, 2284-8, 2731-8, 38158-2 #### [facility] ([id number]) [address], [address] [place] [address] ABSOLUTE NEUTROPHIL 4.1 X10E9/L Normal 1.5-6.6 [facility] Comment on above: Performed By: #### P INR, 87027-8, 4679-7, FEPR, 6793-4, 2132- 9, 2276-4, 2284-8, 2731-8, 58078-6 #### [facility] ([id number]) [address], [address] [place] [address] Basophils/100 WBC (Bld) 0.7 % Normal [facility] Comment on above: Performed By: #### P INR, 41549-2, 4679-7, FEPR, 6793-4, 2132- 9, 2276-4, 2284-8, 2731-8, 33865-8 #### [facility] ([id number]) [address], [address] [place] [address] Eosinophils (Bld) [#/Vol] 0.0 10*3/uL Normal 0.0-0.4 [facility] Comment on above: Performed By: #### P INR, 48196-7, 4679-7, FEPR, 6793-4, 2132- 9, 2276-4, 2284-8, 2731-8, 70001-9 #### [facility] ([id number]) [address], [address] [place] [address] Eosinophils/100 WBC (Bld) 0.7 % Normal [facility] Comment on above: Performed By: #### P INR, 43789-4, 4679-7, FEPR, 6793-4, 2132- 9, 2276-4, 2284-8, 2731-8, 59635-3 #### [facility] ([id number]) [address], [address] [place] [address] Erythrocyte distribution width (RBC) [Ratio] 16.3 % High 11.5-15.0 [facility] Comment on above: Performed By: #### P INR, 52327-2, 4679-7, FEPR, 6793-4, 2132- 9, 2276-4, 2284-8, 2731-8, 05800-6 #### [facility] ([id number]) [address], [address] [place] [address] Hematocrit (Bld) [Volume fraction] 33.7 % Low 39-49 [facility] Comment on above: Performed By: #### P INR, 87927-9, 4679-7, FEPR, 6793-4, 2132- 9, 2276-4, 2284-8, 2731-8, 42480-6 #### [facility] ([id number]) [address], [address] [place] [address] Hemoglobin (Bld) [Mass/Vol] 11.8 g/dL Low 13.0-17.0 [facility] Comment on above: Performed By: #### P INR, 25474-0, 4679-7, FEPR, 6793-4, 2132- 9, 2276-4, 2284-8, 2731-8, 99167-0 #### [facility] ([id number]) [address], [address] [place] [address] Lymphocytes (Bld) [#/Vol] 1.4 10*3/uL Normal 1.0-3.5 [facility] Comment on above: Performed By: #### P INR, 60393-2, 4679-7, FEPR, 6793-4, 2132- 9, 2276-4, 2284-8, 2731-8, 48882-9 #### [facility] ([id number]) [address], [address] [place] [address] Lymphocytes/100 WBC (Bld) 23.1 % Normal [facility] Comment on above: Performed By: #### P INR, 66484-3, 4679-7, FEPR, 6793-4, 2132- 9, 2276-4, 2284-8, 2731-8, 53106-8 #### [facility] ([id number]) [address], [address] [place] [address] MCH (RBC) [Entitic mass] 29.5 pg Normal 27-34 [facility] Comment on above: Performed By: #### P INR, 10284-6, 4679-7, FEPR, 6793-4, 2132- 9, 2276-4, 2284-8, 2731-8, 85679-3 #### [facility] ([id number]) [address], [address] [place] [address] MCHC (RBC) [Mass/Vol] 34.9 g/dL Normal 32-[address] [facility] Comment on above: Performed By: #### P INR, 08258-0, 4679-7, FEPR, 6793-4, 2132- 9, 2276-4, 2284-8, 2731-8, 05033-1 #### [facility] ([id number]) [address], [address] [place] [address] MCV (RBC) [Entitic vol] 85 fL Normal 80-100 [facility] Comment on above: Performed By: #### P INR, 73822-0, 4679-7, FEPR, 6793-4, 2132- 9, 2276-4, 2284-8, 2731-8, 86360-1 #### [facility] ([id number]) [address], [address] [place] [address] Monocytes (Bld) [#/Vol] 0.6 10*3/uL Normal 0-0.9 [facility] Comment on above: Performed By: #### P INR, 86833-7, 4679-7, FEPR, 6793-4, 2132- 9, 2276-4, 2284-8, 2731-8, 70474-0 #### [facility] ([id number]) [address], [address] [place] [address] Monocytes/100 WBC (Bld) 10.1 % Normal [facility] Comment on above: Performed By: #### P INR, 03569-5, 4679-7, FEPR, 6793-4, 2132- 9, 2276-4, 2284-8, 2731-8, 25269-1 #### [facility] ([id number]) [address], [address] [place] [address] Neutrophils/100 WBC (Bld) 65.4 % Normal [facility] Comment on above: Performed By: #### P INR, 63453-2, 4679-7, FEPR, 6793-4, 2132- 9, 2276-4, 2284-8, 2731-8, 66148-6 #### [facility] ([id number]) [address], [address] [place] [address] Platelet mean volume (Bld) [Entitic vol] 10.7 fL Normal 7-12 [facility] Comment on above: Performed By: #### P INR, 94563-0, 4679-7, FEPR, 6793-4, 2132- 9, 2276-4, 2284-8, 2731-8, 96168-4 #### [facility] ([id number]) [address], [address] [place] [address] Platelets (Bld) [#/Vol] 113 10*3/uL Low 150-450 [facility] Comment on above: Performed By: #### P INR, 50594-9, 4679-7, FEPR, 6793-4, 2132- 9, 2276-4, 2284-8, 2731-8, 06505-5 #### [facility] ([id number]) [address], [address] [place] [address] RBC COUNT 3.99 X10E12/L Low 4.10-5.70 [facility] Comment on above: Performed By: #### P INR, 65486-8, 4679-7, FEPR, 6793-4, 2132- 9, 2276-4, 2284-8, 2731-8, 65790-1 #### [facility] ([id number]) [address] [place] [address] WBC (Bld) [#/Vol] 6.2 10*3/uL Normal 4.0-11.0 [facility] Comment on above: Performed By: #### P INR, 95196-6, 4679-7, FEPR, 6793-4, 2132- 9, 2276-4, 2284-8, 2731-8, 35098-5 #### [facility] ([id number]) [address] [place] [address] CBC auto differentialon 01-12 Basophils (Bld) [#/Vol] 0.0 10*3/uL [facility] Basophils/100 WBC (Bld) 0.7 % [facility] Eosinophils (Bld) [#/Vol] 0.0 10*3/uL [facility] Eosinophils/100 WBC (Bld) 0.7 % [facility] Erythrocyte distribution width (RBC) [Ratio] 16.3 % High 11.5 - 15.0 % [facility] Hematocrit (Bld) [Volume fraction] 33.7 % Low 39 - 49 % [facility] Hemoglobin (Bld) [Mass/Vol] 11.8 g/dL Low 13.0 - 17.0 g/dL [facility] Interpretation and review of laboratory results Abnormal [facility] Lymphocytes (Bld) [#/Vol] 1.4 10*3/uL [facility] Lymphocytes/100 WBC (Bld) 23.1 % [facility] MCH (RBC) [Entitic mass] 29.5 pg 27 - 34 pg [facility] MCHC (RBC) [Mass/Vol] 34.9 g/dL 32 - 3 6 g/dL [facility] MCV (RBC) [Entitic vol] 85 fL 80 - 100 fL [facility] Monocytes (Bld) [#/Vol] 0.6 10*3/uL [facility] Monocytes/100 WBC (Bld) 10.1 % [facility] Neutrophils (Bld) [#/Vol] 4.1 10*3/uL [facility] Neutrophils/100 WBC (Bld) 65.4 % [facility] Platelet mean volume (Bld) [Entitic vol] 10.7 fL 7 - 12 fL [facility] Platelets (Bld) [#/Vol] 113 10*3/uL Low [facility] RBC (Bld) [#/Vol] 3.99 10*6/uL Low [facility] WBC corrected for nucl RBC Auto (Bld) [#/Vol] 6.[address] [facility] Glucose Glucometer (dC) [M ass/Vol]on 01-22-2024 Glucose [Mass/Vol] 139 mg/dL High 65-99 [facility] Glucose [Mass/Vol] 139 mg/dL High 65 - 99 mg/dL [facility] Interpretation and review of laboratory results Abnormal [facility] Glucose [Mass/Vol] 139 mg/dL High 65-99 [facility] Glucose [Mass/Vol] 138 mg/dL High 65 - 99 mg/dL [facility] Interpretation and review of laboratory results Abnormal [facility] Glucose [Mass/Vol] 138 mg/dL High 65-99 [facility] Glucose [Mass/Vol] 135 mg/dL High 65 - 99 mg/dL [facility] Interpretation and review of laboratory results Abnormal [facility] Glucose [Mass/Vol] 135 mg/dL High 65-99 [facility] MAGNESIUMon 01-22-2024 Magnesium [Mass/Vol] 1.4 mg/dL Low 1.8-2.6 [facility] Comment on above: Performed By: #### P INR, 91505-0, 4679-7, FEPR, 6793-4, 2132- 9, 2276-4, 2284-8, 2731-8, 08038-5 #### [facility] ([id number]) [address], [address] [place] [address] Magnesiumon 01-22-2024 Magnesium [Mass/Vol] 1.4 mg/dL Low 1.8 - 2 .6 mg/dL [facility] Magnesium [Mass/Vol]on 01-21 Interpretation and review of laboratory results Abnormal [facility] BASIC METABOLIC PANLon 01-20 Anion gap [Moles/Vol] 12 mmol/L Normal 5-15 [facility] Comment on above: Performed By: #### P INR, 00370-2, 4679-7, FEPR, 6793-4, 2132- 9, 2276-4, 2284-8, 2731-8, 22299-0 #### [facility] ([id number]) [address], [address] [place] [address] Calcium [Mass/Vol] 9.4 mg/dL Normal 8.5-10.5 [facility] Comment on above: Performed By: #### P INR, 92221-1, 4679-7, FEPR, 6793-4, 2132- 9, 2276-4, 2284-8, 2731-8, 90447-2 #### [facility] ([id number]) [address], [address] [place] [address] Chloride [Moles/Vol] 99 mmol/L Normal 98-109 [facility] Comment on above: Performed By: #### P INR, 83065-9, 4679-7, FEPR, 6793-4, 2132- 9, 2276-4, 2284-8, 2731-8, 03722-9 #### [facility] ([id number]) [address], [address] [place] [address] CO2 [Moles/Vol] 26 mmol/L Normal 22-32 [facility] Comment on above: Performed By: #### P INR, 53093-4, 4679-7, FEPR, 6793-4, 2132- 9, 2276-4, 2284-8, 2731-8, 35898-5 #### [facility] ([id number]) [address], [address] [place] [address] Creatinine [Mass/Vol] 0.71 mg/dL Normal 0.60-1.[address] [facility] Comment on above: Result Comment: METH OD TRACEABLE TO IDMS STANDARD Performed By: #### P INR, 12573-9, 4679-7, FEPR, 6793-4, 2132-9, 2276-4, 2284-8, 2731-8, 05940-8 #### [facility] ([id number]) [address], [address] [place] [address] eGFR (CKD-EPI) NON-RACE DEPENDENT >90 Normal >59 [facility] Comment on above: Result Comment: Reported eGFR is based on the CKD-EPI 2020 equation that does not use a race coefficient. Performed By: #### P INR, 82203-0, 4679-7, FEPR, 6793-4, 2132-9, 2276-4, 2284-8, 2731-8, 91258-2 #### [facility] ([id number]) [address], [address] [place] [address] Glucose [Mass/Vol] 153 mg/dL High 65-99 [facility] Comment on above: Performed By: #### P INR, 88212-4, 4679-7, FEPR, 6793-4, 2132- 9, 2276-4, 2284-8, 2731-8, 00585-7 #### [facility] ([id number]) [address], [address] [place] [address] Potassium [Moles/Vol] 4.7 mmol/L Normal 3.5-5.[address] [facility] Comment on above: Result Comment: SPEC IMEN HEMOLYZED, RESULTS INCREASED MARKEDLY HEMOLYZED Performed By: #### P INR, 71264-2, 4679-7, FEPR, 6793-4, 2132-9, 2276-4, 2284-8, 2731-8, 96305-3 #### [facility] ([id number]) [address], [address] [place] [address] Sodium [Moles/Vol] 137 mmol/L Normal 134-146 [facility] Comment on above: Result Comment: RESU LTS QUESTIONABLE DUE TO HEMOLYSIS MARKEDLY HEMOLYZED Performed By: #### P INR, 13810-4, 4679-7, FEPR, 6793-4, 2132-9, 2276-4, 2284-8, 2731-8, 25206-2 #### [facility] ([id number]) [address], [address] [place] [address] Urea nitrogen [Mass/Vol] 13 mg/dL Normal 5-23 [facility] Comment on above: Performed By: #### P INR, 41855-8, 4679-7, FEPR, 6793-4, 2132- 9, 2276-4, 2284-8, 2731-8, 23527-7 #### [facility] ([id number]) [address], [address] [place] [address] Basic Metabolic Panelon 06-0 Anion gap [Moles/Vol] 12 mmol/L 5 - 15 mmol/L [facility] Calcium [Mass/Vol] 9.4 mg/dL 8.5 - 10. 5 mg/dL [facility] Chloride [Moles/Vol] 99 mmol/L 98 - 10 9 mmol/L [facility] CO2 [Moles/Vol] 26 mmol/L 22 - 32 mmol/L [facility] Creatinine [Mass/Vol] 0.71 mg/dL 0.60 - 1.30 mg/dL [facility] Comment on above: METHOD TRACEABLE TO IDMS STANDARD eGFR (CKD-EPI)non-race dependent - PINF [facility] Comment on above: Reported eGFR is based on the CKD-EPI 2020 equation that does not use a race coefficient. Glucose [Mass/Vol] 153 mg/dL High 65 - 99 mg/dL [facility] Interpretation and review of laboratory results Abnormal [facility] Potassium [Moles/Vol] 4.7 mmol/L 3.5 - 5.0 mmol/L [facility] Comment on above: SPECIMEN HEMOLYZED, RESULTS INCREASED MARKEDLY HEMOLYZED Sodium [Moles/Vol] 137 mmol/L 134 - 146 mmol/L [facility] Comment on above: RESULTS QUESTIONABLE DUE TO HEMOLYSIS MARKEDLY HEMOLYZED Urea nitrogen [Mass/Vol] 13 mg/dL 5 - 23 mg/dL [facility] CBC AND AUTO DIFFon 01-21-20 24 ABSOLUTE BASOPHIL 0.0 X10E9/L Normal 0.0-0.2 [facility] Comment on above: Performed By: #### P INR, 23028-4, 4679-7, FEPR, 6793-4, 2132- 9, 2276-4, 2284-8, 2731-8, 02716-3 #### [facility] ([id number]) [address], [address] [place] [address] ABSOLUTE NEUTROPHIL 4.9 X10E9/L Normal 1.5-6.6 [facility] Comment on above: Performed By: #### P INR, 87150-7, 4679-7, FEPR, 6793-4, 2132- 9, 2276-4, 2284-8, 2731-8, 58574-8 #### [facility] ([id number]) [address], [address] [place] [address] Basophils/100 WBC (Bld) 0.7 % Normal [facility] Comment on above: Performed By: #### P INR, 02693-1, 4679-7, FEPR, 6793-4, 2132- 9, 2276-4, 2284-8, 2731-8, 01915-6 #### [facility] ([id number]) [address], [address] [place] [address] Eosinophils (Bld) [#/Vol] 0.1 10*3/uL Normal 0.0-0.4 [facility] Comment on above: Performed By: #### P INR, 61297-1, 4679-7, FEPR, 6793-4, 2132- 9, 2276-4, 2284-8, 2731-8, 55169-6 #### [facility] ([id number]) [address], [address] [place] [address] Eosinophils/100 WBC (Bld) 1.1 % Normal [facility] Comment on above: Performed By: #### P INR, 12250-1, 4679-7, FEPR, 6793-4, 2132- 9, 2276-4, 2284-8, 2731-8, 05155-8 #### [facility] ([id number]) [address], [address] [place] [address] Erythrocyte distribution width (RBC) [Ratio] 16.6 % High 11.5-15.0 [facility] Comment on above: Performed By: #### P INR, 99206-9, 4679-7, FEPR, 6793-4, 2132- 9, 2276-4, 2284-8, 2731-8, 70349-7 #### [facility] ([id number]) [address], [address] [place] [address] Hematocrit (Bld) [Volume fraction] 34.9 % Low 39-49 [facility] Comment on above: Performed By: #### P INR, 53740-6, 4679-7, FEPR, 6793-4, 2132- 9, 2276-4, 2284-8, 2731-8, 39246-5 #### [facility] ([id number]) [address], [address] [place] [address] Hemoglobin (Bld) [Mass/Vol] 11.8 g/dL Low 13.0-17.0 [facility] Comment on above: Performed By: #### P INR, 97838-2, 4679-7, FEPR, 6793-4, 2132- 9, 2276-4, 2284-8, 2731-8, 62612-8 #### [facility] ([id number]) [address], [address] [place] [address] Lymphocytes (Bld) [#/Vol] 1.3 10*3/uL Normal 1.0-3.5 [facility] Comment on above: Performed By: #### P INR, 36610-2, 4679-7, FEPR, 6793-4, 2132- 9, 2276-4, 2284-8, 2731-8, 05800-6 #### [facility] ([id number]) [address], [address] [place] [address] Lymphocytes/100 WBC (Bld) 18.8 % Normal [facility] Comment on above: Performed By: #### P INR, 21488-7, 4679-7, FEPR, 6793-4, 2132- 9, 2276-4, 2284-8, 2731-8, 10538-7 #### [facility] ([id number]) [address], [address] [place] [address] MCH (RBC) [Entitic mass] 29.0 pg Normal 27-34 [facility] Comment on above: Performed By: #### P INR, 69355-4, 4679-7, FEPR, 6793-4, 2132- 9, 2276-4, 2284-8, 2731-8, 85288-1 #### [facility] ([id number]) [address], [address] [place] [address] MCHC (RBC) [Mass/Vol] 33.8 g/dL Normal 32-[address] [facility] Comment on above: Performed By: #### P INR, 38801-9, 4679-7, FEPR, 6793-4, 2132- 9, 2276-4, 2284-8, 2731-8, 78715-1 #### [facility] ([id number]) [address], [address] [place] [address] MCV (RBC) [Entitic vol] 86 fL Normal 80-100 [facility] Comment on above: Performed By: #### P INR, 49453-2, 4679-7, FEPR, 6793-4, 2132- 9, 2276-4, 2284-8, 2731-8, 16238-6 #### [facility] ([id number]) [address], [address] [place] [address] Monocytes (Bld) [#/Vol] 0.6 10*3/uL Normal 0-0.9 [facility] Comment on above: Performed By: #### P INR, 68112-3, 4679-7, FEPR, 6793-4, 2132- 9, 2276-4, 2284-8, 2731-8, 86322-3 #### [facility] ([id number]) [address], [address] [place] [address] Monocytes/100 WBC (Bld) 8.4 % Normal [facility] Comment on above: Performed By: #### P INR, 19218-5, 4679-7, FEPR, 6793-4, 2132- 9, 2276-4, 2284-8, 2731-8, 82269-2 #### [facility] ([id number]) [address], [address] [place] [address] Neutrophils/100 WBC (Bld) 71.0 % Normal [facility] Comment on above: Performed By: #### P INR, 70215-3, 4679-7, FEPR, 6793-4, 2132- 9, 2276-4, 2284-8, 2731-8, 69951-2 #### [facility] ([id number]) [address], [address] [place] [address] Platelet mean volume (Bld) [Entitic vol] 11.4 fL Normal 7-12 [facility] Comment on above: Performed By: #### P INR, 17179-8, 4679-7, FEPR, 6793-4, 2132- 9, 2276-4, 2284-8, 2731-8, 73097-2 #### [facility] ([id number]) [address], [address] [place] [address] Platelets (Bld) [#/Vol] 129 10*3/uL Low 150-450 [facility] Comment on above: Performed By: #### P INR, 78288-9, 4679-7, FEPR, 6793-4, 2132- 9, 2276-4, 2284-8, 2731-8, 56488-4 #### [facility] ([id number]) [address], [address] [place] [address] RBC COUNT 4.07 X10E12/L Low 4.10-5.70 [facility] Comment on above: Performed By: #### P INR, 95592-9, 4679-7, FEPR, 6793-4, 2132- 9, 2276-4, 2284-8, 2731-8, 77393-5 #### [facility] ([id number]) [address], [address] [place] [address] WBC (Bld) [#/Vol] 6.9 10*3/uL Normal 4.0-11.0 [facility] Comment on above: Performed By: #### P INR, 71621-2, 4679-7, FEPR, 6793-4, 2132- 9, 2276-4, 2284-8, 2731-8, 54148-2 #### [facility] ([id number]) [address], [address] [place] [address] CBC auto differentialon 06-0 9-2024 Basophils (Bld) [#/Vol] 0.0 10*3/uL [facility] Basophils/100 WBC (Bld) 0.7 % [facility] Eosinophils (Bld) [#/Vol] 0.1 10*3/uL [facility] Eosinophils/100 WBC (Bld) 1.1 % [facility] Erythrocyte distribution width (RBC) [Ratio] 16.6 % High 11.5 - 15.0 % [facility] Hematocrit (Bld) [Volume fraction] 34.9 % Low 39 - 49 % [facility] Hemoglobin (Bld) [Mass/Vol] 11.8 g/dL Low 13.0 - 17.0 g/dL [facility] Interpretation and review of laboratory results Abnormal [facility] Lymphocytes (Bld) [#/Vol] 1.3 10*3/uL [facility] Lymphocytes/100 WBC (Bld) 18.8 % [facility] MCH (RBC) [Entitic mass] 29.0 pg 27 - 34 pg [facility] MCHC (RBC) [Mass/Vol] 33.8 g/dL 32 - 3 6 g/dL [facility] MCV (RBC) [Entitic vol] 86 fL 80 - 100 fL [facility] Monocytes (Bld) [#/Vol] 0.6 10*3/uL [facility] Monocytes/100 WBC (Bld) 8.4 % [facility] Neutrophils (Bld) [#/Vol] 4.9 10*3/uL [facility] Neutrophils/100 WBC (Bld) 71.0 % [facility] Platelet mean volume (Bld) [Entitic vol] 11.4 fL 7 - 12 fL [facility] Platelets (Bld) [#/Vol] 129 10*3/uL Low [facility] RBC (Bld) [#/Vol] 4.07 10*6/uL Low [facility] WBC corrected for nucl RBC Auto (Bld) [#/Vol] 6.9 [facility] Glucose Glucometer (BldC) [M ass/Vol]on 01-21-2024 Glucose [Mass/Vol] 223 mg/dL High 65 - 99 mg/dL [facility] Interpretation and review of laboratory results Abnormal [facility] Glucose [Mass/Vol] 223 mg/dL High 65-99 [facility] Glucose [Mass/Vol] 169 mg/dL High 65 - 99 mg/dL [facility] Interpretation and review of laboratory results Abnormal [facility] Glucose [Mass/Vol] 169 mg/dL High 65-99 [facility] Glucose [Mass/Vol] 151 mg/dL High 65 - 99 mg/dL [facility] Interpretation and review of laboratory results Abnormal [facility] Glucose [Mass/Vol] 151 mg/dL High 65-99 [facility] Glucose [Mass/Vol] 147 mg/dL High 65 - 99 mg/dL [facility] Interpretation and review of laboratory results Abnormal [facility] Glucose [Mass/Vol] 147 mg/dL High 65-99 [facility] MAGNESIUMon 01-21-2024 Magnesium [Mass/Vol] 1.7 mg/dL Low 1.8-2.6 [facility] Comment on above: Result Comment: SPEC IMEN HEMOLYZED, RESULTS INCREASED MARKEDLY HEMOLYZED Performed By: #### P INR, 54324-8, 4679-7, FEPR, 6793-4, 2132-9, 2276-4, 2284-8, 2731-8, 51522-2 #### [facility] ([id number]) [address] [place] [address] Magnesiumon 01-21-2024 Magnesium [Mass/Vol] 1.7 mg/dL Low 1.8 - 2 .6 mg/dL [facility] Comment on above: SPECIMEN HEMOLYZED, RESULTS INCREASED MARKEDLY HEMOLYZED Magnesium [Mass/Vol]on 01-20 Interpretation and review of laboratory results Abnormal [facility] XR HIP RT 2-3 VIEWS W [...] Paredes MD on 01/21/2024 3:06 PM Normal [facility] XR Pelvis and Hip - right 2 [...] Marc Paredes MD on 01/21/2024 3:06 PM [facility] Radiology Study observation (narrative) [facility] XR Pelvis and Hip - right 2 ViewsOrdered By: Marc Paredes on 01-21-2024 [facility] Work Phone: BASIC METABOLIC PANLon 01-19 Anion gap [Moles/Vol] 10 mmol/L Normal 5-[address] [facility] Comment on above: Performed By: #### P INR, 72422-8, 4679-7, FEPR, 6793-4, 2132- 9, 2276-4, 2284-8, 2731-8, 61557-3 #### [facility] ([id number]) [address], [address] [place] [address] Calcium [Mass/Vol] 8.8 mg/dL Normal 8.5-10.5 [facility] Comment on above: Performed By: #### P INR, 12002-3, 4679-7, FEPR, 6793-4, 2132- 9, 2276-4, 2284-8, 2731-8, 55562-7 #### [facility] ([id number]) [address], [address] [place] [address] Chloride [Moles/Vol] 102 mmol/L Normal 98-109 [facility] Comment on above: Performed By: #### P INR, 41760-5, 4679-7, FEPR, 6793-4, 2132- 9, 2276-4, 2284-8, 2731-8, 90064-1 #### [facility] ([id number]) [address], [address] [place] [address] CO2 [Moles/Vol] 24 mmol/L Normal 22-32 [facility] Comment on above: Performed By: #### P INR, 27890-7, 4679-7, FEPR, 6793-4, 2132- 9, 2276-4, 2284-8, 2731-8, 35387-3 #### [facility] ([id number]) [address], [address] [place] [address] Creatinine [Mass/Vol] 0.64 mg/dL Normal 0.60-1.[address] [facility] Comment on above: Result Comment: METH OD TRACEABLE TO IDMS STANDARD Performed By: #### P INR, 95456-2, 4679-7, FEPR, 6793-4, 2132-9, 2276-4, 2284-8, 2731-8, 81201-9 #### [facility] ([id number]) [address], [address] [place] [address] eGFR (CKD-EPI) NON-RACE DEPENDENT >90 Normal >59 [facility] Comment on above: Result Comment: Reported eGFR is based on the CKD-EPI 2020 equation that does not use a race coefficient. Performed By: #### P INR, 58803-2, 4679-7, FEPR, 6793-4, 2132-9, 2276-4, 2284-8, 2731-8, 72615-6 #### [facility] ([id number]) [address] [place] [address] Glucose [Mass/Vol] 119 mg/dL High 65-99 [facility] Comment on above: Performed By: #### P INR, 01814-7, 4679-7, FEPR, 6793-4, 2132- 9, 2276-4, 2284-8, 2731-8, 79883-9 #### [facility] ([id number]) [address], [address] [place] [address] Potassium [Moles/Vol] 4.3 mmol/L Normal 3.5-5.[address] [facility] Comment on above: Performed By: #### P INR, 12348-9, 4679-7, FEPR, 6793-4, 2132- 9, 2276-4, 2284-8, 2731-8, 82391-0 #### [facility] ([id number]) [address], [address] [place] [address] Sodium [Moles/Vol] 136 mmol/L Normal 134-146 [facility] Comment on above: Performed By: #### P INR, 09195-4, 4679-7, FEPR, 6793-4, 2132- 9, 2276-4, 2284-8, 2731-8, 55549-8 #### [facility] ([id number]) [address], [address] [place] [address] Urea nitrogen [Mass/Vol] 14 mg/dL Normal 5-23 [facility] Comment on above: Performed By: #### P INR, 73739-1, 4679-7, FEPR, 6793-4, 2132- 9, 2276-4, 2284-8, 2731-8, 31047-0 #### [facility] ([id number]) [address], [address] [place] [address] Basic Metabolic Panelon Anion gap [Moles/Vol] 10 mmol/L 5 - 15 mmol/L [facility] Calcium [Mass/Vol] 8.8 mg/dL 8.5 - 10. 5 mg/dL [facility] Chloride [Moles/Vol] 102 mmol/L 98 - 10 9 mmol/L [facility] CO2 [Moles/Vol] 24 mmol/L 22 - 32 mmol/L [facility] Creatinine [Mass/Vol] 0.64 mg/dL 0.60 - 1.30 mg/dL [facility] Comment on above: METHOD TRACEABLE TO IDWA STANDARD eGFR (CKD-EPI)non-race dependent - PINF [facility] Comment on above: Reported eGFR is based on the CKD-EPI 2020 equation that does not use a race coefficient. Glucose [Mass/Vol] 119 mg/dL High 65 - 99 mg/dL [facility] Potassium [Moles/Vol] 4.3 mmol/L 3.5 - 5.0 mmol/L [facility] Sodium [Moles/Vol] 136 mmol/L 134 - 146 mmol/L [facility] Urea nitrogen [Mass/Vol] 14 mg/dL 5 - 23 mg/dL [facility] CBC without diffon Erythrocyte distribution width (RBC) [Ratio] 16.4 % High 11.5 - 15.0 % [facility] Hematocrit (Bld) [Volume fraction] 34.9 % Low 39 - 49 % [facility] Hemoglobin (Bld) [Mass/Vol] 11.8 g/dL Low 13.0 - 17.0 g/dL [facility] Interpretation and review of laboratory results Abnormal [facility] MCH (RBC) [Entitic mass] 28.7 pg 27 - 34 pg [facility] MCHC (RBC) [Mass/Vol] 33.7 g/dL 32 - 3 6 g/dL [facility] MCV (RBC) [Entitic vol] 85 fL 80 - 100 fL [facility] Platelet mean volume (Bld) [Entitic vol] 11.0 fL 7 - 12 fL [facility] Platelets (Bld) [#/Vol] 71 10*3/uL Low [facility] RBC (Bld) [#/Vol] 4.09 10*6/uL Low [facility] WBC corrected for nucl RBC Auto (Bld) [#/Vol] 6.7 [facility] COMPLETE BLOOD COUNTon 01-19 Erythrocyte distribution width (RBC) [Ratio] 16.4 % High 11.5-15.0 [facility] Comment on above: Performed By: #### P INR, 32772-3, 4679-7, FEPR, 6793-4, 2132- 9, 2276-4, 2284-8, 2731-8, 07964-1 #### [facility] ([id number]) [address], [address] [place] [address] Hematocrit (Bld) [Volume fraction] 34.9 % Low 39-49 [facility] Comment on above: Performed By: #### P INR, 20420-4, 4679-7, FEPR, 6793-4, 2132- 9, 2276-4, 2284-8, 2731-8, 56112-7 #### [facility] ([id number]) [address] [place] [address] Hemoglobin (Bld) [Mass/Vol] 11.8 g/dL Low 13.0-17.0 [facility] Comment on above: Performed By: #### P INR, 35324-5, 4679-7, FEPR, 6793-4, 2132- 9, 2276-4, 2284-8, 2731-8, 29074-2 #### [facility] ([id number]) [address], [address] [place] [address] MCH (RBC) [Entitic mass] 28.7 pg Normal 27-34 [facility] Comment on above: Performed By: #### P INR, 79162-2, 4679-7, FEPR, 6793-4, 2132- 9, 2276-4, 2284-8, 2731-8, 90641-5 #### [facility] ([id number]) [address], [address] [place] [address] MCHC (RBC) [Mass/Vol] 33.7 g/dL Normal 32-[address] [facility] Comment on above: Performed By: #### P INR, 89668-1, 4679-7, FEPR, 6793-4, 2132- 9, 2276-4, 2284-8, 2731-8, 92789-4 #### [facility] ([id number]) [address], [address] [place] [address] MCV (RBC) [Entitic vol] 85 fL Normal 80-100 [facility] Comment on above: Performed By: #### P INR, 67894-5, 4679-7, FEPR, 6793-4, 2132- 9, 2276-4, 2284-8, 2731-8, 96296-7 #### [facility] ([id number]) [address], [address] [place] [address] Platelet mean volume (Bld) [Entitic vol] 11.0 fL Normal 7-12 [facility] Comment on above: Performed By: #### P INR, 63637-0, 4679-7, FEPR, 6793-4, 2132- 9, 2276-4, 2284-8, 2731-8, 31788-5 #### [facility] ([id number]) [address], [address] [place] [address] Platelets (Bld) [#/Vol] 71 10*3/uL Low 150-450 [facility] Comment on above: Performed By: #### P INR, 10008-0, 4679-7, FEPR, 6793-4, 2132- 9, 2276-4, 2284-8, 2731-8, 33611-1 #### [facility] ([id number]) [address] [place] [address] RBC COUNT 4.09 X10E12/L Low 4.10-5.70 [facility] Comment on above: Performed By: #### P INR, 03722-0, 4679-7, FEPR, 6793-4, 2132- 9, 2276-4, 2284-8, 2731-8, 53037-3 #### [facility] ([id number]) [address], [address] [place] [address] WBC (Bld) [#/Vol] 6.7 10*3/uL Normal 4.0-11.0 [facility] Comment on above: Performed By: #### P INR, 81766-5, 4679-7, FEPR, 6793-4, 2132- 9, 2276-4, 2284-8, 2731-8, 35940-1 #### [facility] ([id number]) [address], [address] [place] [address] Glucose Glucometer (BldC) [M ass/Vol]on 01-20-2024 Glucose [Mass/Vol] 205 mg/dL High 65 - 99 mg/dL [facility] Interpretation and review of laboratory results Abnormal [facility] Glucose [Mass/Vol] 205 mg/dL High 65-99 [facility] Glucose [Mass/Vol] 131 mg/dL High 65 - 99 mg/dL [facility] Interpretation and review of laboratory results Abnormal [facility] Glucose [Mass/Vol] 131 mg/dL High 65-99 [facility] Glucose [Mass/Vol] 173 mg/dL High 65 - 99 mg/dL [facility] Interpretation and review of laboratory results Abnormal [facility] Glucose [Mass/Vol] 173 mg/dL High 65-99 [facility] Glucose [Mass/Vol] 120 mg/dL High 65 - 99 mg/dL [facility] Interpretation and review of laboratory results Abnormal [facility] Glucose [Mass/Vol] 120 mg/dL High 65-99 [facility] MAGNESIUMon 01-20-2024 Magnesium [Mass/Vol] 1.6 mg/dL Low 1.8-2.6 [facility] Comment on above: Performed By: #### P INR, 41193-9, 4679-7, FEPR, 6793-4, 2132- 9, 2276-4, 2284-8, 2731-8, 53558-1 #### [facility] ([id number]) [address], [address] [place] [address] Magnesiumon 01-20-2024 Magnesium [Mass/Vol] 1.6 mg/dL Low 1.8 - 2 .6 mg/dL [facility] No Panel Informationon 01-19 Interpretation and review of laboratory results Abnormal [facility] BASIC METABOLIC PANLon 01-18 Anion gap [Moles/Vol] 11 mmol/L Normal 5-[address] [facility] Comment on above: Performed By: #### P INR, 48663-4, 4679-7, FEPR, 6793-4, 2132- 9, 2276-4, 2284-8, 2731-8, 36113-0 #### [facility] ([id number]) [address], [address] [place] [address] Calcium [Mass/Vol] 9.0 mg/dL Normal 8.5-10.5 [facility] Comment on above: Performed By: #### P INR, 91763-1, 4679-7, FEPR, 6793-4, 2132- 9, 2276-4, 2284-8, 2731-8, 99247-9 #### [facility] ([id number]) [address], [address] [place] [address] Chloride [Moles/Vol] 102 mmol/L Normal 98-109 [facility] Comment on above: Performed By: #### P INR, 88296-7, 4679-7, FEPR, 6793-4, 2132- 9, 2276-4, 2284-8, 2731-8, 64414-4 #### [facility] ([id number]) [address], [address] [place] [address] CO2 [Moles/Vol] 23 mmol/L Normal 22-32 [facility] Comment on above: Performed By: #### P INR, 40521-0, 4679-7, FEPR, 6793-4, 2132- 9, 2276-4, 2284-8, 2731-8, 69077-6 #### [facility] ([id number]) [address], [address] [place] [address] Creatinine [Mass/Vol] 0.57 mg/dL Low 0.60-1.[address] [facility] Comment on above: Result Comment: METH OD TRACEABLE TO IDMS STANDARD Performed By: #### P INR, 59214-5, 4679-7, FEPR, 6793-4, 2132-9, 2276-4, 2284-8, 2731-8, 67878-2 #### [facility] ([id number]) [address], [address] [place] [address] eGFR (CKD-EPI) NON-RACE DEPENDENT >90 Normal >59 [facility] Comment on above: Result Comment: Reported eGFR is based on the CKD-EPI 2020 equation that does not use a race coefficient. Performed By: #### P INR, 47693-6, 4679-7, FEPR, 6793-4, 2132-9, 2276-4, 2284-8, 2731-8, 67780-3 #### [facility] ([id number]) [address], [address] [place] [address] Glucose [Mass/Vol] 150 mg/dL High 65-99 [facility] Comment on above: Performed By: #### P INR, 24883-5, 4679-7, FEPR, 6793-4, 2132- 9, 2276-4, 2284-8, 2731-8, 28009-9 #### [facility] ([id number]) [address], [address] [place] [address] Potassium [Moles/Vol] 4.5 mmol/L Normal 3.5-5.[address] [facility] Comment on above: Performed By: #### P INR, 86302-8, 4679-7, FEPR, 6793-4, 2132- 9, 2276-4, 2284-8, 2731-8, 56220-9 #### [facility] ([id number]) [address], [address] [place] [address] Sodium [Moles/Vol] 136 mmol/L Normal 134-146 [facility] Comment on above: Performed By: #### P INR, 67544-2, 4679-7, FEPR, 6793-4, 2132- 9, 2276-4, 2284-8, 2731-8, 95934-0 #### [facility] ([id number]) [address], [address] [place] [address] Urea nitrogen [Mass/Vol] 13 mg/dL Normal 5-23 [facility] Comment on above: Performed By: #### P INR, 89881-9, 4679-7, FEPR, 6793-4, 2132- 9, 2276-4, 2284-8, 2731-8, 73593-7 #### [facility] ([id number]) [address], [address] [place] [address] Basic Metabolic Panelon 06-0 -2023 Anion gap [Moles/Vol] 11 mmol/L 5 - 15 mmol/L [facility] Calcium [Mass/Vol] 9.0 mg/dL 8.5 - 10. 5 mg/dL [facility] Chloride [Moles/Vol] 102 mmol/L 98 - 10 9 mmol/L [facility] CO2 [Moles/Vol] 23 mmol/L 22 - 32 mmol/L [facility] Creatinine [Mass/Vol] 0.57 mg/dL Low 0.60 - 1.30 mg/dL [facility] Comment on above: METHOD TRACEABLE TO [facility] STANDARD eGFR (CKD-EPI)non-race dependent - PINF [facility] Comment on above: Reported eGFR is based on the CKD-EPI 2020 equation that does not use a race coefficient. Glucose [Mass/Vol] 150 mg/dL High 65 - 99 mg/dL [facility] Interpretation and review of laboratory results Abnormal [facility] Potassium [Moles/Vol] 4.5 mmol/L 3.5 - 5.0 mmol/L [facility] Sodium [Moles/Vol] 136 mmol/L 134 - 146 mmol/L [facility] Urea nitrogen [Mass/Vol] 13 mg/dL 5 - 23 mg/dL [facility] CBC without diffon Erythrocyte distribution width (RBC) [Ratio] 16.5 % High 11.5 - 15.0 % [facility] Hematocrit (Bld) [Volume fraction] 38.9 % Low 39 - 49 % [facility] Hemoglobin (Bld) [Mass/Vol] 13.4 g/dL 13.0 - 17.0 g/dL [facility] Interpretation and review of laboratory results Abnormal [facility] MCH (RBC) [Entitic mass] 29.1 pg 27 - 34 pg [facility] MCHC (RBC) [Mass/Vol] 34.4 g/dL 32 - 3 6 g/dL [facility] MCV (RBC) [Entitic vol] 85 fL 80 - 100 fL [facility] Platelet mean volume (Bld) [Entitic vol] 11.0 fL 7 - 12 fL [facility] Platelets (Bld) [#/Vol] 96 10*3/uL Low [facility] RBC (Bld) [#/Vol] 4.60 10*6/uL [facility] WBC corrected for nucl RBC Auto (Bld) [#/Vol] 9.8 [facility] COMPLETE BLOOD COUNTon 01-18 Erythrocyte distribution width (RBC) [Ratio] 16.5 % High 11.5-15.0 [facility] Comment on above: Performed By: #### P INR, 12185-8, 4679-7, FEPR, 6793-4, 2132- 9, 2276-4, 2284-8, 2731-8, 29735-6 #### [facility] ([id number]) [address], [address] [place] [address] Hematocrit (Bld) [Volume fraction] 38.9 % Low 39-49 [facility] Comment on above: Performed By: #### P INR, 83438-7, 4679-7, FEPR, 6793-4, 2132- 9, 2276-4, 2284-8, 2731-8, 51115-2 #### [facility] ([id number]) [address], [address] [place] [address] Hemoglobin (Bld) [Mass/Vol] 13.4 g/dL Normal 13.0-17.0 [facility] Comment on above: Performed By: #### P INR, 74614-6, 4679-7, FEPR, 6793-4, 2132- 9, 2276-4, 2284-8, 2731-8, 38503-2 #### [facility] ([id number]) [address], [address] [place] [address] MCH (RBC) [Entitic mass] 29.1 pg Normal 27-34 [facility] Comment on above: Performed By: #### P INR, 45010-7, 4679-7, FEPR, 6793-4, 2132- 9, 2276-4, 2284-8, 2731-8, 53943-7 #### [facility] ([id number]) [address], [address] [place] [address] MCHC (RBC) [Mass/Vol] 34.4 g/dL Normal 32-[address] [facility] Comment on above: Performed By: #### P INR, 86649-9, 4679-7, FEPR, 6793-4, 2132- 9, 2276-4, 2284-8, 2731-8, 92484-8 #### [facility] ([id number]) [address], [address] [place] [address] MCV (RBC) [Entitic vol] 85 fL Normal 80-100 [facility] Comment on above: Performed By: #### P INR, 68145-3, 4679-7, FEPR, 6793-4, 2132- 9, 2276-4, 2284-8, 2731-8, 09184-5 #### [facility] ([id number]) [address], [address] [place] [address] Platelet mean volume (Bld) [Entitic vol] 11.0 fL Normal 7-12 [facility] Comment on above: Performed By: #### P INR, 27107-6, 4679-7, FEPR, 6793-4, 2132- 9, 2276-4, 2284-8, 2731-8, 52324-5 #### [facility] ([id number]) [address], [address] [place] [address] Platelets (Bld) [#/Vol] 96 10*3/uL Low 150-450 [facility] Comment on above: Performed By: #### P INR, 74312-2, 4679-7, FEPR, 6793-4, 2132- 9, 2276-4, 2284-8, 2731-8, 06460-9 #### [facility] ([id number]) [address], [address] [place] [address] RBC COUNT 4.60 X10E12/L Normal 4.10-5.70 [facility] Comment on above: Performed By: #### P INR, 46732-7, 4679-7, FEPR, 6793-4, 2132- 9, 2276-4, 2284-8, 2731-8, 84417-2 #### [facility] ([id number]) [address], [address] [place] [address] WBC (Bld) [#/Vol] 9.8 10*3/uL Normal 4.0-11.0 [facility] Comment on above: Performed By: #### P INR, 61334-0, 4679-7, FEPR, 6793-4, 2132- 9, 2276-4, 2284-8, 2731-8, 54530-7 #### [facility] ([id number]) [address], [address] [place] [address] Glucose Glucometer (BldC) [M ass/Vol]on 01-19-2024 Glucose [Mass/Vol] 201 mg/dL High 65 - 99 mg/dL [facility] Interpretation and review of laboratory results Abnormal [facility] Glucose [Mass/Vol] 201 mg/dL High 65-99 [facility] Glucose [Mass/Vol] 223 mg/dL High 65 - 99 mg/dL [facility] Interpretation and review of laboratory results Abnormal [facility] Glucose [Mass/Vol] 223 mg/dL High 65-99 [facility] Glucose [Mass/Vol] 139 mg/dL High 65 - 99 mg/dL [facility] Interpretation and review of laboratory results Abnormal [facility] Glucose [Mass/Vol] 139 mg/dL High 65-99 [facility] Glucose [Mass/Vol] 243 mg/dL High 65 - 99 mg/dL [facility] Interpretation and review of laboratory results Abnormal [facility] Glucose [Mass/Vol] 243 mg/dL High 65-99 [facility] Glucose [Mass/Vol] 141 mg/dL High 65 - 99 mg/dL [facility] Interpretation and review of laboratory results Abnormal [facility] Glucose [Mass/Vol] 141 mg/dL High 65-99 [facility] MAGNESIUMon 01-19-2024 Magnesium [Mass/Vol] 1.4 mg/dL Low 1.8-2.6 [facility] Comment on above: Performed By: #### P INR, 94654-6, 4679-7, FEPR, 6793-4, 2132- 9, 2276-4, 2284-8, 2731-8, 73656-3 #### [facility] ([id number]) [address], [address] [place] [address] Magnesiumon 01-19-2024 Magnesium [Mass/Vol] 1.4 mg/dL Low 1.8 - 2 .6 mg/dL [facility] Magnesium [Mass/Vol]on 01-18 Interpretation and review of laboratory results Abnormal [facility] BASIC METABOLIC PANLon 01-17 Anion gap [Moles/Vol] 9 mmol/L Normal 5-[address] [facility] Comment on above: Performed By: #### P INR, 43951-8, 4679-7, FEPR, 6793-4, 2132- 9, 2276-4, 2284-8, 2731-8, 92147-0 #### [facility] ([id number]) [address], [address] [place] [address] Calcium [Mass/Vol] 9.4 mg/dL Normal 8.5-10.5 [facility] Comment on above: Performed By: #### P INR, 17499-9, 4679-7, FEPR, 6793-4, 2132- 9, 2276-4, 2284-8, 2731-8, 88137-4 #### [facility] ([id number]) [address], [address] [place] [address] Chloride [Moles/Vol] 101 mmol/L Normal 98-109 [facility] Comment on above: Performed By: #### P INR, 78346-3, 4679-7, FEPR, 6793-4, 2132- 9, 2276-4, 2284-8, 2731-8, 09097-2 #### [facility] ([id number]) [address], [address] [place] [address] CO2 [Moles/Vol] 28 mmol/L Normal 22-32 [facility] Comment on above: Performed By: #### P INR, 23905-0, 4679-7, FEPR, 6793-4, 2132- 9, 2276-4, 2284-8, 2731-8, 05656-9 #### [facility] ([id number]) [address], [address] [address] Creatinine [Mass/Vol] 0.70 mg/dL Normal 0.60-1.[address] [facility] Comment on above: Result Comment: METH OD TRACEABLE TO IDMS STANDARD Performed By: #### P INR, 95010-4, 4679-7, FEPR, 6793-4, 2132-9, 2276-4, 2284-8, 2731-8, 91650-7 #### [facility] ([id number]) [address], [address] [address] eGFR (CKD-EPI) NON-RACE DEPENDENT >90 Normal >59 [facility] Comment on above: Result Comment: Reported eGFR is based on the CKD-EPI 2020 equation that does not use a race coefficient. Performed By: #### P INR, 42974-4, 4679-7, FEPR, 6793-4, 2132-9, 2276-4, 2284-8, 2731-8, 14612-2 #### [facility] ([id number]) [address], [facility] [address] [place] [address] Glucose [Mass/Vol] 123 mg/dL High 65-99 [facility] Comment on above: Performed By: #### P INR, 36619-5, 4679-7, FEPR, 6793-4, 2132- 9, 2276-4, 2284-8, 2731-8, 56569-9 #### [facility] ([id number]) [address], [address] [place] [address] Potassium [Moles/Vol] 3.9 mmol/L Normal 3.5-5.[address] [facility] Comment on above: Performed By: #### P INR, 32683-2, 4679-7, FEPR, 6793-4, 2132- 9, 2276-4, 2284-8, 2731-8, 03943-2 #### [facility] ([id number]) [address], [address] [place] [address] Sodium [Moles/Vol] 138 mmol/L Normal 134-146 [facility] Comment on above: Performed By: #### P INR, 36101-7, 4679-7, FEPR, 6793-4, 2132- 9, 2276-4, 2284-8, 2731-8, 42640-0 #### [facility] ([id number]) [address], [address] [place] [address] Urea nitrogen [Mass/Vol] 8 mg/dL Normal 5-23 [facility] Comment on above: Performed By: #### P INR, 60094-2, 4679-7, FEPR, 6793-4, 2132- 9, 2276-4, 2284-8, 2731-8, 12761-2 #### [facility] ([id number]) [address], [address] [place] [address] Basic Metabolic Panelon 06-0 Anion gap [Moles/Vol] 9 mmol/L 5 - 15 mmol/L [facility] Calcium [Mass/Vol] 9.4 mg/dL 8.5 - 10. 5 mg/dL [facility] Chloride [Moles/Vol] 101 mmol/L 98 - 10 9 mmol/L [facility] CO2 [Moles/Vol] 28 mmol/L 22 - 32 mmol/L [facility] Creatinine [Mass/Vol] 0.70 mg/dL 0.60 - 1.30 mg/dL [facility] Comment on above: METHOD TRACEABLE TO IDMS STANDARD eGFR (CKD-EPI)non-race dependent - PINF [facility] Comment on above: Reported eGFR is based on the CKD-EPI 2020 equation that does not use a race coefficient. Glucose [Mass/Vol] 123 mg/dL High 65 - 99 mg/dL [facility] Interpretation and review of laboratory results Abnormal [facility] Potassium [Moles/Vol] 3.9 mmol/L 3.5 - 5.0 mmol/L [facility] Sodium [Moles/Vol] 138 mmol/L 134 - 146 mmol/L [facility] Urea nitrogen [Mass/Vol] 8 mg/dL 5 - 23 mg/dL [facility] CBC without diffon Erythrocyte distribution width (RBC) [Ratio] 17.0 % High 11.5 - 15.0 % [facility] Hematocrit (Bld) [Volume fraction] 44.5 % 39 - 49 % [facility] Hemoglobin (Bld) [Mass/Vol] 15.2 g/dL 13.0 - 17.0 g/dL [facility] Interpretation and review of laboratory results Abnormal [facility] MCH (RBC) [Entitic mass] 29.2 pg 27 - 34 pg [facility] MCHC (RBC) [Mass/Vol] 34.2 g/dL 32 - 3 6 g/dL [facility] MCV (RBC) [Entitic vol] 86 fL 80 - 100 fL [facility] Platelet mean volume (Bld) [Entitic vol] 10.8 fL 7 - 12 fL [facility] Platelets (Bld) [#/Vol] 80 10*3/uL Low [facility] RBC (Bld) [#/Vol] 5.21 10*6/uL [facility] WBC corrected for nucl RBC Auto (Bld) [#/Vol] 6.2 [facility] COMPLETE BLOOD COUNTon 01-17 Erythrocyte distribution width (RBC) [Ratio] 17.0 % High 11.5-15.0 [facility] Comment on above: Performed By: #### P INR, 38166-9, 4679-7, FEPR, 6793-4, 2132- 9, 2276-4, 2284-8, 2731-8, 48392-0 #### [facility] ([id number]) [address], [address] [place] [address] Hematocrit (Bld) [Volume fraction] 44.5 % Normal 39-49 [facility] Comment on above: Performed By: #### P INR, 57773-1, 4679-7, FEPR, 6793-4, 2132- 9, 2276-4, 2284-8, 2731-8, 22118-2 #### [facility] ([id number]) [address], [address] [place] [address] Hemoglobin (Bld) [Mass/Vol] 15.2 g/dL Normal 13.0-17.0 [facility] Comment on above: Performed By: #### P INR, 34908-0, 4679-7, FEPR, 6793-4, 2132- 9, 2276-4, 2284-8, 2731-8, 90876-1 #### [facility] ([id number]) [address], [address] [place] [address] MCH (RBC) [Entitic mass] 29.2 pg Normal 27-34 [facility] Comment on above: Performed By: #### P INR, 80597-8, 4679-7, FEPR, 6793-4, 2132- 9, 2276-4, 2284-8, 2731-8, 61161-9 #### [facility] ([id number]) [address], [address] [place] [address] MCHC (RBC) [Mass/Vol] 34.2 g/dL Normal 32-[address] [facility] Comment on above: Performed By: #### P INR, 64115-4, 4679-7, FEPR, 6793-4, 2132- 9, 2276-4, 2284-8, 2731-8, 28323-7 #### [facility] ([id number]) [address], [address] [place] [address] MCV (RBC) [Entitic vol] 86 fL Normal 80-100 [facility] Comment on above: Performed By: #### P INR, 91234-3, 4679-7, FEPR, 6793-4, 2132- 9, 2276-4, 2284-8, 2731-8, 93547-0 #### [facility] ([id number]) [address], [address] [place] [address] Platelet mean volume (Bld) [Entitic vol] 10.8 fL Normal 7-12 [facility] Comment on above: Performed By: #### P INR, 02461-0, 4679-7, FEPR, 6793-4, 2132- 9, 2276-4, 2284-8, 2731-8, 19809-5 #### [facility] ([id number]) [address], [address] [place] [address] Platelets (Bld) [#/Vol] 80 10*3/uL Low 150-450 [facility] Comment on above: Performed By: #### P INR, 09358-4, 4679-7, FEPR, 6793-4, 2132- 9, 2276-4, 2284-8, 2731-8, 58416-4 #### [facility] ([id number]) [address], [address] [place] [address] RBC COUNT 5.21 X10E12/L Normal 4.10-5.70 [facility] Comment on above: Performed By: #### P INR, 57848-3, 4679-7, FEPR, 6793-4, 2132- 9, 2276-4, 2284-8, 2731-8, 07445-2 #### [facility] ([id number]) [address], [address] [place] [address] WBC (Bld) [#/Vol] 6.2 10*3/uL Normal 4.0-11.0 [facility] Comment on above: Performed By: #### P INR, 39009-6, 4679-7, FEPR, 6793-4, 2131- 9, 6-4, 2283-8, 2730-8, 31407-8 #### [facility] ([id number]) [address] [place] [address], [address] [place] [address] Glucose Glucometer (BldC) [M ass/Vol]on 01-18-2024 Glucose [Mass/Vol] 238 mg/dL High 65 - 99 mg/dL [facility] Interpretation and review of laboratory results Abnormal [facility] Glucose [Mass/Vol] 238 mg/dL High 65-99 [facility] Glucose [Mass/Vol] 197 mg/dL High 65 - 99 mg/dL [facility] Interpretation and review of laboratory results Abnormal [facility] Glucose [Mass/Vol] 197 mg/dL High 65-99 [facility] Glucose [Mass/Vol] 188 mg/dL High 65 - 99 mg/dL [facility] Interpretation and review of laboratory results Abnormal [facility] Glucose [Mass/Vol] 188 mg/dL High 65-99 [facility] Glucose [Mass/Vol] 143 mg/dL High 65 - 99 mg/dL [facility] Interpretation and review of laboratory results Abnormal [facility] Glucose [Mass/Vol] 143 mg/dL High 65-99 [facility] Glucose [Mass/Vol] 119 mg/dL High 65 - 99 mg/dL [facility] Interpretation and review of laboratory results Abnormal [facility] Glucose [Mass/Vol] 119 mg/dL High 65-99 [facility] HGB A1C (GLYCO-HGB)on 2023 Glucose [Mass/Vol] 143 mg/dL Normal [facility] Comment on above: Performed By: #### P INR, 10536-6, 4679-7, FEPR, 6793-4, 2131- 9, 2276-4, 2284-8, 1-8, 49185-3 #### [facility] ([id number]) [address] [place] [address], [address] [place] [address] HbA1c (Bld) [Mass fraction] 6.6 % High 4.4-5.6 [facility] Comment on above: Result Comment: NOTE ADA Guidelines Result HgbA1c Normal : less than 5.7 % Prediabetes : 5.7 % to 6.4 % Diabetes : > 6.4 % Use with caution in patients with abnormal hemoglobin variants as the half-life of red blood cells and in vivo glycation rates are affected. Performed By: #### P INR, 74101-5, 4679-7, FEPR, 6793-4, 2132-9, 2276-4, 2284-8, 2731-8, 02757-4 #### [facility] ([id number]) [address] [place] [address], [address] [place] [address] Hemoglobin A1con 01-18-2024 Average glucose Estimated from glycated hemoglobin (Bld) [Mass/Vol] 143 mg/dL [facility] HbA1c (Bld) [Mass fraction] 6.6 % High 4.4 - 5.6 % [facility] Comment on above: NOTE ADA Guidelines Result HgbA1c Normal : less than 5.7 % Prediabetes : 5.7 % to 6.4 % Diabetes : > 6.4 % Use with caution in patients with abnormal hemoglobin variants as the half-life of red blood cells and in vivo glycation rates are affected. Interpretation and review of laboratory results Abnormal [facility] MAGNESIUMon 01-18-2024 Magnesium [Mass/Vol] 1.7 mg/dL Low 1.8-2.6 [facility] Comment on above: Performed By: #### P INR, 75416-5, 4679-7, FEPR, 6793-4, 2132- 9, 2276-4, 2284-8, 2731-8, 00270-1 #### [facility] ([id number]) [address], [address] [place] [address] Magnesium [Mass/Vol]on 01-17 Interpretation and review of laboratory results Abnormal [facility] XR HIP RT 2-3 VIEWS W [...] Nathan Skinner on 01/18/2024 3:43 PM Normal [facility] XR HIP RT 2-3 VIEWS W OR [...] Gonzalez MD on 01/18/2024 3:40 PM Normal [facility] XR Lumbar spine 2 or 3 Views [...] Clifford Jauregui MD on 01/18/2024 8:[address] [facility] Radiology Study observation (narrative) [facility] XR Lumbar spine 2 or 3 Views Ordered By: Clifford Jauregui on 01-18-[address] [facility] Work Phone: XR Pelvis and Hip - [...] by Nathan Skinner on 01/18/2024 3:43 PM [facility] Radiology Study observation (narrative) [facility] XR HIP RT 2-3 VIEWS W PELVIS [...] Valdo Gonzalez MD on 01/18/2024 3:40 PM [facility] Radiology Study observation (narrative) [facility] XR Pelvis and Hip - right 2 ViewsOrdered By: Nathan Skinner on 01-18-2024 [facility] Work Phone: XR Pelvis and Hip - right 2 ViewsOrdered By: Valdo Gonzalez on 01-18-2024 [facility] Work Phone: XR SPINE LUMBAR 2 OR [...] Jauregui MD on 01/18/2024 8:31 AM Normal [facility] APTTon 01-17-2024 aPTT Coag (PPP) [Time] 30 s [facility] ECG 12 leadon 01-17-2024 TRACEMASTERVUE [facility] FERRITINon 01-17-2024 Ferritin [Mass/Vol] 42 ng/mL Normal 24-336 [facility] Comment on above: Performed By: #### P INR, 04385-8, 4679-7, FEPR, 6793-4, 2132- 9, 2276-4, 2284-8, 2731-8, 03432-4 #### [facility] ([id number]) [address], [address] [place] [address] Ferritinon 01-17-2024 Ferritin [Mass/Vol] 42 ng/mL 24 - 336 ng/mL [facility] Folateon 01-17-2024 Folate [Mass/Vol] 9.3 ng/mL 5.8 - PINF ng/mL [facility] Comment on above: NEW REFERENCE RANGE Folate [Mass/Vol]on 01-17-20 24 FOLIC ACID 9.3 ng/mL Normal >5.8 [facility] Comment on above: Result Comment: NEW REFERENCE RANGE Performed By: #### P INR, 15266-7, 4679-7, FEPR, 6793-4, 2132-9, 2276-4, 2284-8, 2731-8, 58559-6 #### [facility] ([id number]) [address], [address] [place] [address] Glucose Glucometer (BldC) [M ass/Vol]on 01-17-2024 Glucose [Mass/Vol] 94 mg/dL 65 - 99 mg/dL [facility] Glucose [Mass/Vol] 94 mg/dL Normal 65-99 [facility] IRON PROFILEon 01-17-2024 Iron [Mass/Vol] 74 ug/dL Normal 50-212 [facility] Comment on above: Result Comment: SPEC IMEN HEMOLYZED, RESULTS INCREASED SLIGHTLY HEMOLYZED Performed By: #### P INR, 86981-3, 4679-7, FEPR, 6793-4, 2132-9, 2276-4, 2284-8, 2731-8, 03441-1 #### [facility] ([id number]) [address], [address] [place] [address] IRON BINDING 449 ug/dL High 250-425 [facility] Comment on above: Performed By: #### P INR, 66408-6, 4679-7, FEPR, 6793-4, 2132- 9, 2276-4, 2284-8, 2731-8, 53079-2 #### [facility] ([id number]) [address], [address] [place] [address] IRON SATURATION 16 % SATURATION Low 20-50 [facility] Comment on above: Performed By: #### P INR, 90568-8, 4679-7, FEPR, 6793-4, 2132- 9, 2276-4, 2284-8, 2731-8, 89009-4 #### [facility] ([id number]) [address], [address] [place] [address] Iron and TIBCon 01-17-2024 Interpretation and review of laboratory results Abnormal [facility] Iron [Mass/Vol] 74 ug/dL 50 - 212 ug/dL [facility] Comment on above: SPECIMEN HEMOLYZED, RESULTS INCREASED SLIGHTLY HEMOLYZED Iron binding capacity [Mass/Vol] 449 ug/dL High 250 - 425 ug/dL [facility] Iron saturation [Mass fraction] 16 Low [facility] No Panel Informationon 01-16 [facility] PROTIME AND INRon 01-17-2024 INR Coag (PPP) [Relative time] 1.0 {INR} Normal 0.8-1.1 [facility] Comment on above: Performed By: #### P INR, 79853-1, 4679-7, FEPR, 6793-4, 2132- 9, 2276-4, 2284-8, 2731-8, 05505-7 #### [facility] ([id number]) [address], [address] [place] [address] PT Coag (PPP) [Time] 12.2 s Normal 9.8-13.2 [facility] Comment on above: Performed By: #### P INR, 90563-7, 4679-7, FEPR, 6793-4, 2132- 9, 2276-4, 2284-8, 2731-8, 30954-0 #### [facility] ([id number]) [address], [address] [place] [address] Parathyrin.intact [Mass/Vol] on 01-17-2024 PTH INTACT 27 pg/mL Normal 12- [facility] Comment on above: Performed By: #### P INR, 88934-9, 4679-7, FEPR, 6793-4, 2132- 9, 2276-4, 2284-8, 2731-8, 70601-4 #### [facility] ([id number]) [address], [address] [place] [address] Parathyroid Hormone, intacto n 01-17-2024 Parathyrin.intact [Mass/Vol] 27 pg/mL 12 - 88 pg/mL [facility] Prealbuminon 01-17-2024 Prealbumin IA [Mass/Vol] 21 mg/dL 18 - 45 mg/dL [facility] Prealbumin IA [Mass/Vol]on 0 01-17-2024 Prealbumin [Mass/Vol] 21 mg/dL Normal 18-[address] [facility] Comment on above: Performed By: #### P INR, 78781-5, 4679-7, FEPR, 6793-4, 2132- 9, 2276-4, 2284-8, 2731-8, 41547-3 #### [facility] ([id number]) [address], [address] [place] [address] Protime & INRon 01-17-2024 INR Coag (PPP) [Relative time] 1.0 {INR} [facility] PT Coag (PPP) [Time] 12.2 s [facility] Reticulocyteson 01-17-2024 Reticulocytes/100 RBC (Bld) 1.1 % 0.4 - 2.2 % [facility] Reticulocytes/100 RBC (Bld)o n 01-17-2024 [facility] RETICULOCYTE COUNT 1.1 % Normal 0.4-2.2 [facility] Comment on above: Performed By: #### P INR, 60510-7, 4679-7, FEPR, 6793-4, 2132- 9, 2276-4, 2284-8, 2731-8, 70675-7 #### [facility] ([id number]) [address] [place] [address], [address] [place] [address] Troponin I, High Sensitivity on 01-17-2024 Troponin I.cardiac High sensitivity method [Mass/Vol] 5 ng/L NINF - 21 ng/L [facility] Troponin I, High Sensitivity 1 Houron 01-17-2024 Troponin I.cardiac High sensitivity method [Mass/Vol] 5 ng/L NINF - 21 ng/L [facility] Troponin I.cardiac High sens itivity method [Mass/Vol]on 01-17-2024 [facility] 1 HOUR TROP I, HIGH SENSITIVITY 5 ng/L Normal <21 [facility] Comment on above: Performed By: #### P INR, 25554-0, 4679-7, FEPR, 6793-4, 2132- 9, 2276-4, 2284-8, 2731-8, 15308-2 #### [facility] ([id number]) [address], [address] [place] [address] [facility] TROPONIN I, HIGH SENSITIVITY 5 ng/L Normal <21 [facility] Comment on above: Performed By: #### P INR, 86547-7, 4679-7, FEPR, 6793-4, 2132- 9, 2276-4, 2284-8, 2731-8, 55597-0 #### [facility] ([id number]) [address], [address] [place] [address] Type and screen(includes ind irect yolanda)on 01-17-2024 ABO O [facility] Rh Nom (Bld) Positive [facility] URINALYSISon 01-17-2024 Bilirubin Ql (U) Negative Normal NEG [facility] Comment on above: Performed By: #### P INR, 87342-9, 4679-7, FEPR, 6793-4, 2132- 9, 2276-4, 2284-8, 2731-8, 54817-2 #### [facility] ([id number]) [address], [address] [place] [address] BLOOD/HGB Trace Abnormal NEG [facility] Comment on above: Performed By: #### P INR, 44200-4, 4679-7, FEPR, 6793-4, 2132- 9, 2276-4, 2284-8, 2731-8, 73556-6 #### [facility] ([id number]) [address], [address] [place] [address] Color (U) YELLOW Normal YELLOW [facility] Comment on above: Performed By: #### P INR, 27088-6, 4679-7, FEPR, 6793-4, 2132- 9, 2276-4, 2284-8, 2731-8, 18206-2 #### [facility] ([id number]) [address], [address] [place] [address] Glucose Ql (U) Negative Normal NEG [facility] Comment on above: Performed By: #### P INR, 32532-8, 4679-7, FEPR, 6793-4, 2132- 9, 2276-4, 2284-8, 2731-8, 57873-6 #### [facility] ([id number]) [address], [address] [place] [address] Ketones Ql (U) Negative Normal NEG [facility] Comment on above: Performed By: #### P INR, 01740-6, 4679-7, FEPR, 6793-4, 2132- 9, 2276-4, 2284-8, 2731-8, 79218-3 #### [facility] ([id number]) [address], [address] [place] [address] Leukocyte esterase Test strip Ql (U) Negative Normal NEG [facility] Comment on above: Performed By: #### P INR, 11288-0, 4679-7, FEPR, 6793-4, 2132- 9, 2276-4, 2284-8, 2731-8, 73944-3 #### [facility] ([id number]) [address], [address] [place] [address] MUCOUS PRESENT Abnormal NONE [facility] Comment on above: Performed By: #### P INR, 65588-8, 4679-7, FEPR, 6793-4, 2132- 9, 2276-4, 2284-8, 2731-8, 08233-1 #### [facility] ([id number]) [address], [address] [place] [address] Nitrite Ql (U) Negative Normal NEG [facility] Comment on above: Performed By: #### P INR, 57630-3, 4679-7, FEPR, 6793-4, 2132- 9, 2276-4, 2284-8, 2731-8, 47809-3 #### [facility] ([id number]) [address], [address] [place] [address] pH (U) 8.5 [pH] Normal 5.0-8.5 [facility] Comment on above: Performed By: #### P INR, 03852-6, 4679-7, FEPR, 6793-4, 2132- 9, 2276-4, 2284-8, 2731-8, 87881-2 #### [facility] ([id number]) [address], [address] [place] [address] Protein Ql (U) Trace Abnormal NEG [facility] Comment on above: Result Comment: Not confirmed. Interpret positive result with caution due to alkaline pH. Suggest quantitative Urine Protein be tested. Performed By: #### P INR, 84055-0, 4679-7, FEPR, 6793-4, 2132-9, 2276-4, 2284-8, 2731-8, 19165-0 #### [facility] ([id number]) [address], [address] [place] [address] R.B.CELLS 7 /hpf High 0-5 [facility] Comment on above: Performed By: #### P INR, 77806-3, 4679-7, FEPR, 6793-4, 2132- 9, 2276-4, 2284-8, 2731-8, 17945-9 #### [facility] ([id number]) [address], [address] [place] [address] Specific gravity (U) [Rel density] 1.018 Normal 1.003-1.03 5 [facility] Comment on above: Performed By: #### P INR, 51425-2, 4679-7, FEPR, 6793-4, 2132- 9, 2276-4, 2284-8, 2731-8, 57352-5 #### [facility] ([id number]) [address], [address] [place] [address] TURBIDITY CLEAR Normal CLEAR [facility] Comment on above: Performed By: #### P INR, 46516-8, 4679-7, FEPR, 6793-4, 2132- 9, 2276-4, 2284-8, 2731-8, 90968-1 #### [facility] ([id number]) [address] [place] [address] Urobilinogen (U) [Mass/Vol] mg/dL Normal <1.1 [facility] Comment on above: Performed By: #### P INR, 91045-8, 4679-7, FEPR, 6793-4, 2132- 9, 2276-4, 2284-8, 2731-8, 30500-4 #### [facility] ([id number]) [address], [address] [place] [address] W.B.CELLS 2 /hpf Normal 0-5 [facility] Comment on above: Performed By: #### P INR, 12159-0, 4679-7, FEPR, 6793-4, 2132- 9, 2276-4, 2284-8, 2731-8, 64188-8 #### [facility] ([id number]) [address], [address] [place] [address] Urinalysison 01-17-2024 Bilirubin Ql (U) Negative Negative^N egative [facility] Color (U) YELLOW YELLOW^YEL LOW [facility] Glucose (U) [Mass/Vol] Negative Negative^N egative mg/dL [facility] Hemoglobin Auto test strip Ql (U) Trace Abnormal Negative^N egative [facility] Interpretation and review of laboratory results Abnormal [facility] Ketones (U) [Mass/Vol] Negative Negative^N egative mg/dL [facility] Leukocyte esterase Auto test strip Ql (U) Negative Negative^N egative [facility] Mucus Ql (Urine sed) PRESENT Abnormal NONE^NONE [facility] Nitrite Auto test strip Ql (U) Negative Negative^N egative [facility] pH (U) 8.5 [pH] 5.0 - 8.5 [facility] Protein (U) [Mass/Vol] Trace Abnormal Negative^N egative mg/dL [facility] Comment on above: Not confirmed. Inter pret positive result with caution due to alkaline pH. Suggest quantitative Urine Protein be tested. RBC Auto (Urine sed) [#/Area] 7 High [facility] Specific gravity Refractometry automated (U) [Rel density] 1.018 1.003 - 1.035 [facility] Turbidity Ql (U) CLEAR CLEAR^LEANDRA R [facility] Urobilinogen Qn (U) NINF [facility] WBC Auto (Urine sed) [#/Area] 2 [facility] VITAMIN B12on 01-17-2024 Cobalamin (Vitamin B12) [Mass/Vol] 242 pg/mL Normal 180-914 [facility] Comment on above: Performed By: #### P INR, 66333-7, 4679-7, FEPR, 6793-4, 2132- 9, 2276-4, 2284-8, 2731-8, 40634-3 #### [facility] ([id number]) [address] [place] [address], [address] [place] [address] Vitamin B12on 01-17-2024 Cobalamin (Vitamin B12) [Mass/Vol] 242 pg/mL 180 - 914 pg/mL [facility] Vitamin D 25 hydroxyon 01-16 Vitamin D+Metabolites [Mass/Vol] 20.4 ng/mL Low 30 - 100 ng/mL [facility] Comment on above: Vitamin D status 25 [place] Vitamin D Deficiency <20 ng/mL Insufficiency 20-29 ng/mL Sufficiency 30-100 ng/mL Toxicity >100 ng/mL NOTE: A pediatric reference range has not been established by the switching clerk of this kit. The [place] [employer] recommends a Vitamin D level of = or >20ng/mL in infants and children. Vitamin D+Metabolites [Mass/ Vol]on 01-17-2024 Interpretation and review of laboratory results Abnormal [facility] VITAMIN D 25 HYD TOT 20.4 ng/mL Low 30-100 [facility] Comment on above: Result Comment: Vitamin D status 25 [place] Vitamin D Deficiency <20 ng/mL Insufficiency 20-29 ng/mL Sufficiency 30-100 ng/mL Toxicity >100 ng/mL NOTE: A pediatric reference range has not been established by the switching clerk of this kit. The [place] [employer] recommends a Vitamin D level of = or >20ng/mL in infants and children. Performed By: #### P INR, 71367-4, 4679-7, FEPR, 6793-4, 2132-9, 2276-4, 2284-8, 2731-8, 92304-0 #### [facility] ([id number]) [address], [address] [place] [address] XR CHEST 1 VWon 01-17-2024 XR CHEST 1 VW XR CHEST 1 VW CHEST 1 VIEW HISTORY: Preop COMPARISON: 10/31/2021 FINDINGS: No focal airspace disease, pulmonary edema, pleural effusions, or pneumothorax. Normal cardiomediastinal silhouette. IMPRESSION: No acute cardiopulmonary disease. Finalized by Sylvester Collins MD on 01/17/2024 10:48 PM Normal [facility] XR Chest Single viewon 01-16 CHEST 1 [...] Sylvester Collins MD on 01/17/2024 10:48 PM [facility] Radiology Study observation (narrative) [facility] XR Chest Single viewOrdered By: Sylvester Collins on 01-17-2024 [facility] Work Phone: XR FEMUR RT 2+ VIEWSon [...] Donavon Chen MD on 01/17/2024 11:42 AM Normal [facility] XR Femur - right 2 Viewson 0 [...] Donavon Chen MD on 01/17/2024 11:42 AM [facility] Radiology Study observation (narrative) [facility] XR Femur - right 2 ViewsOrde red By: Donavon Chen on 01-17-2024 [facility] Work Phone: aPTT Coag (PPP) [Time]on aPTT Coag (Bld) [Time] 30 s Normal 26-37 [facility] Comment on above: Performed By: #### P INR, 17203-4, 4679-7, FEPR, 6793-4, 2132- 9, 2276-4, 2284-8, 2731-8, 28386-6 #### [facility] ([id number]) [address] [place] [address] Creatinine (Bld) [Mass/Vol]O rdered By: Guillermo Thornton on 08-21-2023 Creatinine [Mass/Vol] 0.8 mg/dL 0.6-1.3 [facility] Comment on above: ER/ESD physician is notified/shown all ISTAT results.Critical values may be confirmed by laboratory testing ifdeemed necessary by ER attending doctor. No Panel InformationOrdered By: Guillermo Thornton on 08-21-2023 Bedside Estimated GFR (eGFR) > 60.0 [facility] Alanine aminotransferase [En zymatic activity/volume] in Serum or PlasmaOrdered By: Guillermo Thornton on 04-24-2023 ALT [Catalytic activity/Vol] 9 U/L 7-52 [facility] Albumin [Mass/volume] in Ser um or Plasma by Bromocresol green (BCG) dye binding methoOrdered By: Guillermo Thornton on 04-24-2023 Albumin BCG dye [Mass/Vol] 4.5 g/dL 3.5-5.7 [facility] Alkaline phosphatase [Enzyma tic activity/volume] in Serum or PlasmaOrdered By: Guillermo Thornton on 04-24-2023 ALP [Catalytic activity/Vol] 46 U/L 34-104 [facility] Aspartate aminotransferase [ Enzymatic activity/volume] in Serum or PlasmaOrdered By: Guillermo Thornton on 04-24-2023 AST [Catalytic activity/Vol] 18 U/L 13-39 [facility] Bilirubin.direct [Mass/volum e] in Serum or PlasmaOrdered By: Guillermo Thornton on 04-24-2023 Bilirubin.direct [Mass/Vol] 0.10 mg/dL 0.03-0.18 [facility] Bilirubin.total [Mass/volume ] in Serum or PlasmaOrdered By: Guillermo Thornton on 04-24-2023 Bilirubin [Mass/Vol] 0.5 mg/dL 0.3-1.0 [facility] Diagnostic impression [Inter pretation] in Specimen NarrativeOrdered By: Guillermo Thornton on 04-24-2023 Diagnostic impression Molgen Jf (Unsp spec) [Interp] See comment . [facility] Comment on above: Positive HCV antibod y screen without the presence of HCVRNA is consistent with a resolved past infection or a falsepositive HCV antibody. Consider repeat testing after onemonth.Performed at: - [facility] [id number] Director: Aaron Amin PhD, Phone: [phone] at: - [facility] [id number] Director: Hazel Rivera MD, Phone: [phone] Globulin Calc (S) [Mass/Vol] Ordered By: Guillermo Thornton on 04-24-2023 Globulin (S) [Mass/Vol] 2.5 g/dL [facility] Hepatitis C virus IgG Ab [Pr esence] in Serum or Plasma by ImmunoassayOrdered By: Guillermo Thornton on 04-24-2023 HCV IgG IA Ql Reactive Non Reactive [facility] No Panel InformationOrdered By: Guillermo Thornton on 04-24-2023 Hepatitis C RNA Qnt (PCR) Test Info See comment . [facility] Comment on above: The quantitative ran ge of this assay is 15 IU/mL to 100million IU/mL. Hepatitis C RNA Quantitative See comment [facility] Comment on above: HCV Not Detected Protein [Mass/volume] in Ser um or PlasmaOrdered By: Guillermo Thornton on 04-24-2023 Protein [Mass/Vol] 7.0 g/dL 6.4-8.[address] [facility] Serum or plasma albumin/glob ulin mass ratioOrdered By: Guillemro Thornton on 04-24-2023 Albumin/Globulin [Mass ratio] 1.8 {ratio} [facility] Serum or plasma non-glucuron idated bilirubin measurement (mass/volume)Ordered By: Guillermo Thornton on 04-24-2023 Bilirubin.indirect [Mass/Vol] 0.4 mg/dL [facility] Alanine aminotransferase [En zymatic activity/volume] in Serum or PlasmaOrdered By: Guillermo Thornton on 03-21-2023 ALT [Catalytic activity/Vol] 10 U/L 7-52 [facility] Albumin [Mass/volume] in Ser um or Plasma by Bromocresol green (BCG) dye binding methoOrdered By: Guillermo Thornton on 03-21-2023 Albumin BCG dye [Mass/Vol] See comment 3.5-5.7 [facility] Comment on above: Specimen hemolyzed, redraw requested Alkaline phosphatase [Enzyma tic activity/volume] in Serum or PlasmaOrdered By: Guillermo Thornton on 03-21-2023 ALP [Catalytic activity/Vol] 44 U/L 34-104 [facility] Anisocytosis LM Ql (Bld)Orde red By: Guillermo Thornton on 03-21-2023 Anisocytosis Ql (Bld) Moderate [facility] Aspartate aminotransferase [ Enzymatic activity/volume] in Serum or PlasmaOrdered By: Guillermo Thornton on 03-21-2023 AST [Catalytic activity/Vol] See comment 1339 [facility] Comment on above: Specimen hemolyzed, redraw requested Basophils Auto (Bld) [#/Vol] Ordered By: Guillermo Thornton on 03-21-2023 Basophils (Bld) [#/Vol] 0.0 10*3/uL 0.0-0.2 [facility] Basophils/100 WBC Auto (Bld) Ordered By: Guillermo Thornton on 03-21-2023 Basophils/100 WBC (Bld) 0.8 % . [facility] Bilirubin.total [Mass/volume ] in Serum or PlasmaOrdered By: Guillermo Thornton on 03-21-2023 Bilirubin [Mass/Vol] 0.5 mg/dL 0.3-1.0 [facility] Calcium [Mass/volume] in Ser um or PlasmaOrdered By: Guillermo Thornton on 03-21-2023 Calcium [Mass/Vol] 9.5 mg/dL 8.6-10.[address] [facility] Carbon dioxide, total [Moles /volume] in Serum or PlasmaOrdered By: Guillermo Thornton on 03-21-2023 CO2 [Moles/Vol] 25.0 mmol/L 21.0-31.0 [facility] Chloride [Moles/volume] in S lillian or PlasmaOrdered By: Guillermo Thornton on 03-21-2023 Chloride [Moles/Vol] 103 mmol/L 98-107 [facility] Creatinine [Mass/volume] in Serum or PlasmaOrdered By: Guillermo Thornton on 03-21-2023 Creatinine [Mass/Vol] 0.84 mg/dL 0.70-1.30 [facility] Eosinophils Auto (Bld) [#/Vo l]Ordered By: Guillermo Thornton on 03-21-2023 Eosinophils (Bld) [#/Vol] 0.0 10*3/uL 0.0-0.45 [facility] Eosinophils/100 WBC Auto (Bl d)Ordered By: Guillermo Thornton on 03-21-2023 Eosinophils/100 WBC (Bld) 0.1 % . [facility] Erythrocyte distribution wid th Auto (RBC) [Ratio]Ordered By: Guillermo Thornton on 03-21-2023 Erythrocyte distribution width (RBC) [Ratio] 16.2 % 12.0-14.8 [facility] Globulin Calc (S) [Mass/Vol] Ordered By: Guillermo Thornton on 03-21-2023 Globulin (S) [Mass/Vol] TNP [facility] Comment on above: Test not performed Glucose Glucometer (BldC) [M ass/Vol]Ordered By: Guillermo Thornton on 03-21-2023 Glucose [Mass/Vol] 142 mg/dL [facility] Comment on above: Random Glucose Refer ence Range is dependent on time and content of last meal. Glucose of more than 200 mg/dL in a nonstressed, ambulatory subject supports the diagnosis of Diabetes Mellitus. Glucose [Mass/volume] in Ser um or PlasmaOrdered By: Guillermo Thornton on 03-21-2023 Glucose [Mass/Vol] 127 mg/dL 70-[address] [facility] Comment on above: ADA recommended refe rence rangeRandom Glucose Reference Range is dependent on time and content of last meal. Glucose of more than 200 mg/dL in a nonstressed, ambulatory subject supports the diagnosis of Diabetes Mellitus. Hematocrit Auto (Bld) [Volum e fraction]Ordered By: Guillermo Thornton on 03-21-2023 Hematocrit (Bld) [Volume fraction] 43.2 % 38.8-50.0 [facility] Hemoglobin [Mass/volume] in BloodOrdered By: Guillermo Thornton on 03-21-2023 Hemoglobin (Bld) [Mass/Vol] 14.4 g/dL 13.0-17.0 [facility] Hepatitis C virus RNA [log u nits/volume] (viral load) in Serum or Plasma by HAI withOrdered By: Guillermo Thornton on 03-21-2023 HCV RNA HAI+probe [Log units/Vol] Not detected . [facility] INR in Platelet poor plasma by Coagulation assayOrdered By: Guillermo Thornton on 03-21-2023 INR Coag (PPP) [Relative time] 1.0 {INR} [facility] Comment on above: INR Therapeutic Rang [...] s 9.0-12.9 [facility] Leukocytes [#/volume] correc joseluis for nucleated erythrocytes in Blood by Automated counOrdered By: Guillermo Thornton on 03-21-2023 WBC corrected for nucl RBC Auto (Bld) [#/Vol] 5.9 10*3/uL 4.1-10.5 [facility] Lymphocytes Auto (Bld) [#/Vo l]Ordered By: Guillermo Thornton on 03-21-2023 Lymphocytes (Bld) [#/Vol] 1.6 10*3/uL 1.00-4.8 [facility] Lymphocytes/100 WBC Auto (Bl d)Ordered By: Guillermo Thornton on 03-21-2023 Lymphocytes/100 WBC (Bld) 27.3 % . [facility] MCH Auto (RBC) [Entitic mass ]Ordered By: Guillermo Thornton on 03-21-2023 MCH (RBC) [Entitic mass] 27.8 pg 27.5-35.2 [facility] MCHC Auto (RBC) [Mass/Vol]Or dered By: Guillermo Thornton on 03-21-2023 MCHC (RBC) [Mass/Vol] 33.2 g/dL 32.5-35.6 [facility] MCV Auto (RBC) [Entitic vol] Ordered By: Guillermo Thornton on 03-21-2023 MCV (RBC) [Entitic vol] 83.8 fL 83.5-101 [facility] Microcytes LM Ql (Bld)Ordere d By: Guillermo Thornton on 03-21-2023 Microcytes Ql (Bld) Moderate [facility] Monocytes Auto (Bld) [#/Vol] Ordered By: Guillermo Thornton on 03-21-2023 Monocytes (Bld) [#/Vol] 0.5 10*3/uL 0.0-0.8 [facility] Monocytes/100 WBC Auto (Bld) Ordered By: Guillermo Thornton on 03-21-2023 Monocytes/100 WBC (Bld) 7.9 % . [facility] Neutrophils Auto (Bld) [#/Vo l]Ordered By: Guillermo Thornton on 03-21-2023 Neutrophils (Bld) [#/Vol] 3.8 10*3/uL 1.8-7.7 [facility] Neutrophils/100 WBC Auto (Bl d)Ordered By: Guillermo Thornton on 03-21-2023 Neutrophils/100 WBC (Bld) 63.9 % . [facility] No Panel InformationOrdered By: Guillermo Thornton on 03-21-2023 Estimated GFR (CKD-EPI) > 60.0 mL/Min [facility] Hepatitis C RNA (PCR) Interpret See comment . [facility] Comment on above: The quantitative ran ge of this assay is 15 IU/mL to 100million IU/mL.Performed at: [facility] [id number] Director: Hazel Rivera MD, Phone: [phone] Pharmacy Creatinine Clearance (Chem 133.96 [facility] Bedside Glucose Comment Glu2: cleaned meter [facility] Nucleated erythrocytes [Pres ence] in Blood by Automated countOrdered By: Guillermo Thornton on 03-21-2023 Nucleated RBC Auto Ql (Bld) 0.2 /100{WBC} 0-0.5 [facility] Platelet adequacy [Presence] in Blood by Light microscopyOrdered By: Guillermo Thornton on 03-21-2023 Platelets LM Ql (Bld) Decreased Normal [facility] Platelet mean volume Auto (B ld) [Entitic vol]Ordered By: Guillermo Thornton on 03-21-2023 Platelet mean volume (Bld) [Entitic vol] 11.0 fL 6.6-10.1 [facility] Platelet morphology finding [Identifier] in BloodOrdered By: Guillermo Thornton on 03-21-2023 Platelet morphology finding Nom (Bld) N/A [facility] Platelets Auto (Bld) [#/Vol] Ordered By: Guillermo Thornton on 03-21-2023 Platelets (Bld) [#/Vol] 94 10*3/uL 150-450 [facility] Platelets Large [Presence] i n Blood by Light microscopyOrdered By: Guillermo Thornton on 03-21-2023 Platelets Large LM Ql (Bld) Slight [facility] Potassium [Moles/volume] in Serum or PlasmaOrdered By: Guillermo Thornton on 03-21-2023 Potassium [Moles/Vol] See comment 3.5-5.1 [facility] Comment on above: Specimen hemolyzed, redraw requested Protein [Mass/volume] in Ser um or PlasmaOrdered By: Guillermo Thornton on 03-21-2023 Protein [Mass/Vol] See comment 6.4-8.[address] [facility] Comment on above: Specimen hemolyzed, redraw requested RBC Auto (Bld) [#/Vol]Ordere d By: Guillermo Thornton on 03-21-2023 RBC (Bld) [#/Vol] 5.16 10*6/uL 3.90-5.[address] [facility] RBC morphologyOrdered By: Diana Thornton on 03-21-2023 RBC morphology finding Nom (Bld) N/A [facility] Serum or plasma albumin/glob ulin mass ratioOrdered By: Guillermo Thornton on 03-21-2023 Albumin/Globulin [Mass ratio] [facility] Comment on above: Test not performed Serum or plasma ddhdd-2-cnut protein tumor marker measurement (mass/volume)Ordered By: Guillermo Thornton on 03-21-2023 AFP.tumor marker [Mass/Vol] 5.2 ng/mL 0.0-8.4 [facility] Comment on above: [facility] El ectrochemiluminescence Immunoassay(ECLIA)Values obtained with different assay methods or kits cannotbe used interchangeably. Results cannot be interpreted asabsolute evidence of the presence or absence of malignantdisease.This test is not interpretable in females.Performed at: [facility] [id number] Director: Aaron Amin PhD, Phone: [phone] Serum or plasma anion gap de terminationOrdered By: Guillermo Thornton on 03-21-2023 Anion gap [Moles/Vol] [facility] Comment on above: Test not performed Sodium [Moles/volume] in Ser um or PlasmaOrdered By: Guillermo Thornton on 03-21-2023 Sodium [Moles/Vol] See comment 136-[address] [facility] Comment on above: Specimen hemolyzed, redraw requested Urea nitrogen [Mass/volume] in Serum or PlasmaOrdered By: Guillermo Thornton on 03-21-2023 Urea nitrogen [Mass/Vol] 14 mg/dL 03-07 [facility] WBC Auto (Bld) [#/Vol]Ordere d By: Guillermo Thornton on 03-21-2023 WBC (Bld) [#/Vol] 5.9 10*3/uL 4.1-10.[address] [facility] Lab - Reference Lab Resultso n 02-05-2021 Lab - Reference Lab Results [id number]#1.00OTG TIFF [facility] Patient Handouton 02-04-2021 Patient Handout Custom [facility] [address] [place] [address], [facility], [place], [place] CERTIFIED February 04, [address] Smith [address] [place] [address]. [id number] Dear Ruth, A physician-patient relationship is established when the physician provides service to a person to address medical needs. Once a physician-patient relationship is established, a person remains a patient until the relationship is terminated. Individuals receiving Pain Management Service may be involuntarily terminated for an inability or unwillingness to comply with their plan of treatment or other policies of the [facility] Department. This Letter is [...] records to them. Sincerely, Stefan Nash MD [facility] Progress Note - Nurseon - Progress Note - Nurse patient is dischar ged from Pain Mgmt per Dr. Nash on 02/04/2021 d/t UDS results. Please see chart [Electronically Signed on: 02/04/2021 09:38 EDT] Mabel Treviño [Verified on: 02/04/2021 09:38 EDT] Mabel Treviño [facility] Coding Summaryon 01-29-2021 Coding Summary HTMLBase 64 PpdfsvpfORy6pOz+PGhlYWQ+ LW1YZNXkC92wnKNokG0JS5tM LE3USVGGXISKME3JML8djYI1 YHsgY5DdsdUk PogfiBZpTR03FKz6MCD3aMmi DSxwsU9arKCqK6w8ZqXtZE31 xU85GBgfUVYgPbI8VnEqvlar bWFy Z0mgDaVkfUSdYch+PHRhYmxl IHdpZHRoPScxMDAlJyBzdHls SF2eCa5zDIJsSTAacBqxbJJu OiBj j2jwFCNyMUgqOV2xnFhhD0Ib zKK9VZZfm4d7Mb07hKE+PHRk MDX9tBraUYgjo797VoBgr6cj IDM3 gDIrDLhdHPD9E63jk0S2CLHa ASKgVSH8fJK9jT9hqNsoaegd L6KizLJaYxV1OZG5oFFkoS8p bGln dtubkE7sRmv+T83XCC6CNNXD DY7GUtz4P6AaEramtNB+PC90 RCYcXY22yUBeyTHhc9iujUz9 JzEw SXLzNVL8dEiiYElwz5VmZZEd Z76qjNOnn0N1QGPhkYtliQCg WeQogYQ4xC6iAOvvhjeil9qz dzsn Pjrps1lsyt88wS86K59dYZmq PQElMUJ7UAQdYIKzbFecka8w cC9fIr8+AVvvg4uda2gioFx1 IjIw ONKdaaUnhFgjGIG0q8TcMm73 N8YjaQqiz3CeSzo1ne51zUXt x5R6wIM8PWseSRPmuN5yZMxw ZnQ6 SZVzJiOblN38dPHsRMyeTx7z xEiylDikUX8kJKRgbpwxQUQi sJ8oBJYppQOfrWvnSZ1qEBTg bjtm j880StYgZZA5QZExpUJtT0Mp iV6gLpOoDMVqTOViM0OuxZEp CVlzT343SZetTfY3VUTkyhUa Y2Fs OFNlqNniRcA9o5H0Kg9Pl5Ie plwpFRZ8CYntGAU0EoS0BgNd ZrT7W4OlIgy1QLKdmJnzXM3x J3Bh TQQjlnkhacpwcFP4OOBcYALs uN42hXNuDBbsFp5iw5Q5v818 TGGcIXIfrN57Lq0idXvkUGSv dCBU mR4jlcmcz6hzqnkzRtWsFIWj NAj2UTz7AWOqeGlaBmPwRFO1 YxP1ITL9bIYuzC5bfOkyvcjl dG9w Oyc+J95qmL8jTCY7MCI1lzqj WZQhxwXsEX99RR79Z5EvZuwa dGFibGU+UQHzekSboWpdUP0p YmFj j0tgg4AiMHdiZ9PeFABwVPrz Eme3CBEnVDU8bAP2kL7vJGPv ZGspm2M4nDC4A7MljmGbxu7z b2xs VKTySUxuB98fsSUtc8C4IFSl eVE5AVCsdDhjVpRugK69Spw+ IEObkDibv6RxBvayi9rxl1bo dGg9 YeYiTAOzgfKbxJjvQDB4w5Gk Gp55L67oXJbjGEHvTVQqZEJp BLDcxPmxfr7hsT1nFw0+PGNv bCB3 oNS2tO5uTWCfXwU7RUibP213 HoQmjBKtCjzgy4dio6aqpLj4 FzXcATCvemWeeZtrLCU6z5Ok Lz48 R26vRVcaGRBmBSXaNZKuZMMt mMtrik1itF7mVx8+YW8dq6lk jr96aF48sXE+SEExEKY6rOqr PSdw UBHnuZ4tRXbxPeU1UYYcOsTv uP21lLUmJCboHq9pcMyppTuw YU7xDDAfkvvdm194YsGhf6vd IDEw fEDnDGnzRIM1A03qi3N7AAPt PPEzETY2sNH1nN7znReczsat bGVmdDsgdmVydGljYWwtYWxp Z246 IHRvcDsnPlBhdGllbnQgTmFt YUw5Y9ZdInv6EOFfbQdnWP0r oUDrTSpjOy3elPudfZmsWU2t NTBp yyytz756RxQtl4ssPSSmhXXe SFymXRJ7G29ez4A7XVUsZKUb RNU0qDP8kA2gkUyjytshjNXm dDsg zsRpdTsfROcvKSrnA133MSRk qUsdYkEjraHcZDTliYW5NY93 SU03iKLea5V4bIE9F6FjHSZn bmct tsydvCB0CCEwOBVjwF18Uh7m zIvrRp9kXCCfGGP6JIHddJAf B9GgqD5yWjMoOBLiQEChZ8Ug eHQt DEbxQ960PLskEzP4SFPfnzCt L7ZzLOQnfVioCzK8v9Q9Ux5G B8G7DJ14XC23uHUht8M8tHC9 J3Bh GJDybrnubehanCE1ZBQyHGVu pC00Pf3rhRqkUu8nOMPnNNB6 XFVhbNCqY0PcnK1gCoRfRCXm MDAw Y8KksNWzXGiqG706HPdaAmV3 RBRaypGaW5RqLEQpzLnvCtK4 n6M4Ed9SQSw0HO23DQ53kHIc c3R5 yHO0Y0WwJTLcxifsfrgrpZD7 CVZwEFEknZ05Ii2erDkdCv4d KWFiUSQ2SPCdqVIgA4AfqT3f OiAj PUDtOXUiN6NwuPJeUIpdU785 WAzqYvA6ECDugyKbY0FcBGTg pLrlRzJ2v7P6Fh5FVIZkRW17 IFR5 tRB3XN79VS02Z8YsMebvlNCd bGU+PHRhYmxlIHdpZHRoPScx LKSbLhUfhLhxNN3eCs9yTXVp LWNv iFmgvIScDwPam0ulFEFvEYki EV3jkQfvG3QmmKY7EKBbb8g6 Ry28L13rL7NwbON+PGNvbCB3 aWR0 qS7fNpLgRcG9XNbmX341VgMa lRSbVnpqx2zxe8fsdXg6KvO7 INKgmqMkjQodDYV7d3QeTh73 Y29s IHdpZHRoPSIxNSUiIHZhbGln xh0kyI8vLb6+YQNadEE2oTN5 wF7hAvJpCmB4OVjzX730OvGl cCIv Uihtt8cnf9wcuJk9QyYpCOBx reQcmJlcXCQ1f1QqDe26X6Hd iQspc1AkEvo6yp68jFQux3T2 bGU9 E8IgEFPkidovzGVcvHkaEU9c INZwclsfMVUywC6oXLCqQ5o6 CmKkMyE7AZrjE4WaajK8TXBc cHQg FZilDJV8S63gs5U8WIPkVKVd TLF8nER4cY5uqDihrnczhDXs oQrwgzMuiCswMVcjFIgxL084 IHRv xYsdQPNikX6pVPMmsNQshRpg HY8tNEMgtktyKnmRDeOTCLFT Q53OKUTWNFLWJDBZIQi7G9Kr Pjx0 WNBzuPckWD4syPXrJYtjHi4x xZsamXrzXL5pMZYjdrkuEANb fW7bQFDrcKSamBmwSG9oFZHb bjtm x473HkNeWSI8VHQdxCAuT0Im dR3rLsZeXEEuEGBiO2PqbPUz HVjuE335AUtrShK3WHVnhpSz Y2Fs KRUppYsmLkV6w7K5Uc1sDO3j Lm6dINH4WT47JL82aGOzf2J1 oUJ3L1LqNICuolczjdjslZZ1 IDAu GQQnkF87iFBdRQxuUw5jc3W7 v467BKJyTADqfJ87Xf9igCjj FRXipXSXpD9qubmah8hfqqky IzAw NZGuMQu0OWd2LYHhbXlgCnLw FFR5NmI4KZD9wZQhrS4qrUsm otudaQ4rDpi+NTIgWWVhcnM8 L3Rk Mue5OJHekOucSX0puKZfOLon La0jdFxmyTuuQH3lDRCfvjab VYVkoM1hWMMbhIKezSwjSG4o NTBp gdhdo271CqDbEBQ6XEZnfNVp D5KkwN6nIiTqYYLpCEKoY1Fs lWIkVDnvI253HRrmLzX6PQMj cnRp L6XgKOJliCgdSxB5h2F3An6J HTwKVV55NZ29sWWdi8C6nHO9 B6KrXACqnxtcvptysYO9ZFIi MDUw dC35lMXuAXedUi7ac0O8h938 ZDWdRFRreY79Xd5zqPwiWEWl iCPCjR4owarjy9rwfagiCxZq MDAw YYo1ADm5EGDcgAzvJfFjWQH9 QtT3UND4eQKlnJ9abUxkzgfy bL9dPxw+N2E9K9GjKuxxlMD+ PC90 NGZiIV74qHEavAGdn6yywCh6 BiPtNVQiQXG0tEptHJxhh7Zx FEYdI87ynQKib3S1TECtaTcz cHNl IwCnbMK7cN4xWWtaleitd1ru rfwkIajwl0ybaj41tF00K66u IHdpZHRoPSIzMCUiIHZhbGln bj0i fD7pEw1+SLIfzLH8qCB2lS8q ShXoXlK7RCjuL907OsPeiFPz Jmdtx2tia3mfnZz9CfGhQXZu dmFs eWcgGEM4k4WrUg48R00iLLyc KYWcEIXkADPyLBSreKsfbz6g tU0pLo4+SZ7rz0qwzs20uL99 dHI+ LZXnWSQ1tPjfIDdvIJZomP3h DRceVpS5MBGaAyReeX55vDMj CJizUi0fcIjojZlsSS0zXMDh bjtm m038BbClb0utSQTknNZkCCpu KEC6Q37qy6R1SZYxULFgCON7 rEJ1aS1diKsnqxzulKTtxKxv dmVy vEkyLExuPYwhG739XGZynTvt LvQcxFEwL5szyzZKGH0nGydq dGQ+HOHkBIR2qNoxUNzsKRYa aW5n QPPnJ9m5CpCaIpK1SOtaX8Jh nyE6XYRimUKbXBPrbKUFdS4e vizpq3nlisalTvBiOVDrUUw5 ZXh0 KNJabBlhXaEzNOC8PaX8VAM6 fYLzbK9wlJwdcgtmeG7pOzs+ RklOOjwvdGQ+TZOeFKR9tWuy PSdw ZEXsdC4rRCRiZ7y2TjAkGzU3 USuzB6AprmN7KTEwcIHfFSTq aRTVxY6aefkwy3clywoeHsKn MDAw NUx2IQo0UUVdzErmAuMjBYI7 RyS6GYM9cLUlxG1gtZjshfdb gO6bOqk+TVJOOjwvdGQ+PHRk IHN0 fCamMOycTJEulB4dENJpK0g1 VqMrZsW5PMsqT9JsqpO7ITId eRFqQEBzdBBKtE3zlftbi2ic cjog YkNqBFCnZSo7HYp3SJMfhTxp GlVpQWU4DhL8PLX8zMAmwB9s eOaeanighZ1tNsa+TZB3EAY9 PC90 VZ22Y4FvMddofFGjxMU+PHRh YmxlIHdpZHRoPScxMDAlJyBz cOwcJP9zOg8sTCDlOZZafBpy cHNl OiB (more content not included)... [facility] Progress Note - Provideron 0 01-29-2021 Progress Note - Provider [id number]#1.00OTG TIFF [facility] Progress Note - Nurseon 12-12 Progress Note - Nurse Patient called in today for refill of oxycodone. Refill sent to [facility]. Oarrs reviewed [Electronically Signed on: 12/22/2020 10:17 EDT] Azul Espitia [Verified on: 12/22/2020 10:17 EDT] Azul Espitia [facility] Progress Note - Nurseon 11-12 Progress Note - Nurse PATIENT CALLED IN REFILL REQUEST. OARRS WAS REVIEWED. PATIENT IS COMPLIANT. REFILL REQUEST WAS SENT TO NANCY JOHNSON FOR HER APPROVAL. FOLLOW UP IS IN PROGRESS. [Electronically Signed on: 11/24/2020 08:47 EDT] Karolina Walker [Verified on: 11/24/2020 08:47 EDT] Aaron Karolina [facility] Lab - Reference Lab Resultso n 11-19-2020 Lab - Reference Lab Results [id number]#1.00OTG TIFF [facility] COVID-19 SOFIAon 10-28-2020 COVID-19 ROMA Negative Negative [facility] Comment on above: This is a duplicate Roma SARS Antigen (SHANELL) result to be used for statistical tracking purpose only. Otheron 10-28-2020 SARS Antigen (LFIA) [facility] Progress Note - Nurseon 10-12 Progress Note - Nurse PATIENT CALLED IN REFILL REQUEST. OARRS WAS REVIEWED. PATIENT IS COMPLIANT. REFILL REQUEST WAS SENT TO NANCY JOHNSON FOR HER APPROVAL. FOLLOW UP IS IN PROGRESS. [Electronically Signed on: 10/27/2020 11:51 EDT] Karolina Walker [Verified on: 10/27/2020 11:51 EDT] Karolina Walker [facility] Coding Summaryon 10-22-2020 Coding Summary HTMLBase 64 HunsikdyXYo2lSf+PGhlYWQ+ YC3UBXNnZ98odNNdxF4DV0aJ FL5UYHGIEKYJMR8MKQ0odLN8 PRneC9SlsnWd UkszwBYfFP43MPj0DRO7qWwt MLrauX2lvNPwX1j2UsZhLI13 tN99KKuhXBGuQvE4GuNrhdjv bWFy A5coPsWejWQnSwm+PHRhYmxl IHdpZHRoPScxMDAlJyBzdHls EU6bNo9wGNHdERWnvAhxqLCn OiBj b9bnGXQxIAbySC5pjWqvL6Ra nKL6FRWmu0n9Pi64rYV+PHRk XRT3uFkfHMmhw939CtEnd3oy IDM3 iENuDShtYUX4U36ek5L8SCCa HFZsUMS3wWX9iA4uxBuhhotd H0ZyzCVmAbT9FLP4cUZgoJ2a bGln eajylV9vSbp+J48FBM8DESFG JJ3HVdc8M2BbHjlkkXP+PC90 AQLoOZ77tBAezQTxq6zmhQz5 JzEw YUHpHIZ0fXteRMdyv0UvEMIn H79xkDBcb7H3YLHguZculPRd XxQqtWA4yX5wZVrieduds5th dzsn Mhftk6earb77fM13P41qICxb UXPtJLV5FQYhOQDdgKnhok3u rI9pZt3+GRwrg8kip2xddKk5 IjIw JDTeopQolSyyOEN9x1DlHr91 M4EqaNnmn3XjKbx6dp82jGAm i6I5hNV3ABzuHTIftG4lDZcw ZnQ6 DNTpYiLhqM69nQFaHFlsCc9c pSnfyXjkXW9oLUCvcqapPBZn dV0fRZGcqRIliGwkPC0jZQGs bjtm s054RmMuZMB1WMPcsLRuT6Oh rV5kXmCxWJLhUPEtD3NfbIHy YUuoS589XDwyIhG4BRGbixQm Y2Fs JWUxiRjiBvA2t3L9Rb6Rm8Fa dyhqAWA2GGejNMWmNtJoCwKv WaF7N3RoXah3SMSysJswKL7d J3Bh TTIgkoqcpmzmeDA2FBXeABAe wV32fZRzLEfjSu5sl2I4h965 JRNhDTOoiX39Bb1akZndTRGm dCBU dU9hocefd9mlpbwbGvOvFQGh GNd6BBb0HNWdgQzvCgIlAQH0 KeH6AEM9tEDprL3riNhahtwe dG9w Oyc+T69dyT8dYAI6FKH0alrh HOAyelWdFO56OQ47Z3OaMtyn dGFibGU+PPAmssPneYgsLX4v YmFj o9lmn8IkJJvyN3PaJVXfNDfm Dqf9KIEdFBT7hVU8kE2kYBGx ZYgju8E7bVX1L8KjtmWzxv3q b2xs EMDsQHqeR34saSLrn3D3UCPr vQN4MHExwIekWbPiqH45Xzc+ MWUgxKrsw9PwSgxbv2ikj1sp dGg9 RyHaREYdzgHkzJxjGAJ2d5Xt Vy39K78qZSsuAOQaEVXmQEGk ZGOkvJeidh0zmN2rPv9+PGNv bCB3 eUZ0nC2uXDQfVuY3OQudK753 RqTzdRRcZwwrv2hjk3zpfFs3 EbUaFBUwoeCofWiuYFA4r1Cu Lz48 I91sXCevALKpCAGhWSFsACLt qDkdpq5qjF3aRy6+QC2ko9yj kb20zU83zVP+UCBsICN8pZol PSdw BPYkaB5oBNecVxG9VJTmBkLu qO53bMAgCWrrEe7zjXiqiNqz DB5kRSMrvcfrc008WkQvc2no IDEw sWZtNCgaDYA1Z67jf9N4YISy QTJfNRP0yGE6uG4zqVgxukcb bGVmdDsgdmVydGljYWwtYWxp Z246 IHRvcDsnPlBhdGllbnQgTmFt MSy7D6KtYdj3APAmpCwlEA9c jFLyKFcpNi7gbWsgpRgzPZ2v NTBp ekbsp663KtNbs7haSLFmrYGk LFygISA7K30hv3C2IMMlJSRk YEM9jSV1nQ9dcBljrgdomFGz dDsg swTebWzsLKhnJYknP374UGQe oNxuAyGhplVwNAVnnSF2QS01 CS05eLGqi5R2tAY1P2BxNALe bmct qawjpKQ4ZWNqXIAitB68Rq0q zRfaSv4pHGHfOYQ7UANcwCIt C4NqcM9gMkWeLWVqAHWiF9Rr eHQt HSaxC031HXnyFkU9OVRhsfIl M3AdSOIsyVonKoY9p6K4Lr5O M0L4ZD16ND82dHSrc6Y7bGT5 J3Bh MHNdfynrjlagpYO5IWXsSHJk kI30Qb9rpKqsBi2yUYKfQQD7 KETkeMNtM0PrpM6aXhVkYDIh MDAw N0ThbLVtTQjgZ709RJnnGeV1 RLBiorLpX4ZtCVEpzTqjNxS7 s3V4Dk8EAYp3LT00DZ16iQWo c3R5 lYS5B7XhWBUbktzbfvscqOR8 SKLwCGRwhG38Pg8exHwhZm3z UOIvDOZ1GFTiiHLqE5SexO5o OiAj SCSuCZSzJ3JjlAVgLAsuN348 SNxtJlT4AZLzyuQjI9SrJIFs nPvvJzU7x6M4Wo5JOKTrHR93 IFR5 pYF2ZJ67YJ21H1RtUzrwkXIo bGU+PHRhYmxlIHdpZHRoPScx LRVxIoBslXobMO5wRs7mZABq LWNv aAkvdKRkPaAvv7voTXGbIYzh DF4vnOupD5DbpIZ7YWXic1y7 Lh27J35iK1SxdRJ+PGNvbCB3 aWR0 nE2vIyKwDoT3BIytS505AnJa yAUyRgobd3cqv4ahaGi8GgL4 QPXtjiCwpXhiGIR6x0SzOm45 Y29s IHdpZHRoPSIxNSUiIHZhbGln yd2phR0oCh0+GIBbmDF1oZP5 lM2oXhNtFzC7CIrgP558VqDk cCIv Klvjx3dkd2fueFx4PhOlUXYk shHmbFlrHYP6t1ZwMc53R6Xm rZxyw2QfMiq4kz09cXXqs7E8 bGU9 Y6ZuIPSxsikpeDWtsLipLR5s CFEzrbbsKWLgkW2mQNYlU7v5 EwEyCiT6VEznS2MnmdI8WRTa cHQg REgiVJN3I55vl5X0FPUkJPUs SCK1fJN5zN3meJsrsmharCLw zUvhkgErlZhrDStjOZhcC451 IHRv wSdcNXPdiC3sXGGizQYthLrp BO8hGAGctzsuUfhMCxPRTPKV G15SVEPBJKFGGEVRSRl9R2Gz Pjx0 CHFwiPjwEM7hfXKfTJdaLh2t bAwheZvwLE5iKLNijrcjGJJa sE5zKINvfEKliTnsKF8kWUGy bjtm u961DdMyHTA3HEPaiHCiT3Pu kF6mDrNhPHXcEKNsJ0XwuZWu UCnuL447FGgjBlQ9MROyuyHc Y2Fs SZLpeHtdTeV0u3N4Gb0sRQ9u Fy9lJLU5WX26AL72dLMxx0M2 rUB4N8LwZWVorokrmtmujYX5 IDAu ITWveX45cXHhPGofNm1ud4Z9 h093NSZkIJBbrO57Ht6ziUmk UDIudMANiE2okwper5ryvllh IzAw WSWpHQh1PEa5XTDxzXllUbXm YTU7NnI5TFG6sYKsvP3eaRrj nqgxuA2aIdx+NTIgWWVhcnM8 L3Rk Cwg7GNWweNgiMS5fcBGkKYtn Eo3jpLqewOniNQ6cRJFzagys VWYzoD2qAFXfhNLruWxqDA4g NTBp aljgu285KwRoETB2YVQmmBDi M3XnfF8xXxYiHHDbFCTrK2Fc mOEaKMarU102VGslAfO8VHQp cnRp T1YwJICnzMqqFgT4z9L1Dk3T EEsWRC39OU73zVGlg6L7pTZ1 D0KhTHAoyjvbnukjpPH5IPSb MDUw eX83eUSgQRqiXh0wr6Z6p118 BQPuQLHhfW12Ts5ioRfmEWOd zEUIpM8bcvduz7gyefcuVzJm MDAw WWu7BNs8VQDfyWdqLoWuXEE0 BjL9PZD9kMDndX3uoHgcuzlk gS3dAwp+C7N1Y2BqKuennEF+ PC90 UQBvGB39tZCdoCGco7bkmWf5 JlBdUKVqQCC2qSrmVSzjq4Bm PSFoM70zrBXnb1K9VJRejSvf cHNl RsHkfLU5fI7tNUktfxcmx8ef ggqdYsnwq5qgbq23fY21S76c IHdpZHRoPSIzMCUiIHZhbGln bj0i mM4jFj4+PVVnuDP5rAW3gW8t YfGpRmM3OPlcF715QjZnbSTm Expgo5hvb3yhaXa5YaNlFHIf dmFs hNkiXQS5u0PfCg95C33fPLcx XFLtMFQhTWSlVNQzwAidbk3b iN1dZs0+ES2tt7hzbr20pV84 dHI+ IUIqNLG2iZrpPUlcDKJcnC0g HQqhAfT8MNRhFaEwaR18cNEf ABmcYx1bjUuueFkhQN1oQUTy bjtm j797TgMyr8meNYVzfYIoKMrg DVZ4T10ly6V9IKVtUUPvJPZ8 wTM8bN8qpIourcoiyKHcmQgo dmVy hVjhNQejNNrrX778IENcfTuy SlEaxSMcS1dldzKJSO7qOpql dGQ+IHUaUCY2eDojIWppQKDs aW5n OGCyO1m9UpNqHhO2MAfdE0Ow bjG3IIOesUYiMKRcaKDIwF8y lrhqp0cxlutjKfInCRNwIIk6 ZXh0 SYCkvAovUaYsLMJ7QrT9KME0 tNIfmC8gfDuevvbgvT5tBeq+ RklOOjwvdGQ+CJWiTPS7tFeg PSdw USClnS6vFBJiQ8w6IbKyJuY6 QSpvP4FkdtC6MSJevFPtROTc dUMVeP2fjtzmc4hdyujlZjAb MDAw MFj4FZa6DSUkpHheLaDnBRC3 MqP7MCH8hNIeqK0oqChkgjzy dF3oGat+TVJOOjwvdGQ+PHRk IHN0 sFfrIZzeECOcjX2uGOHcZ5b0 UzDuZtV5VAluN6BvbxI0ZMHi kMTvEBYanDTTyB5pgwplc1ib cjog UxGfDRLzAWg9LAd4TJOpiJak LbZoFRS5RrR9TQT0dWOotO6p xUrvzmkbpT6hQto+WQB9KOF2 PC90 NC31R2JtHxbhvEQfuYE+PHRh YmxlIHdpZHRoPScxMDAlJyBz vGztTS3qBi2rMLEhVPJdaAfe cHNl OiB (more content not included)... Normal [facility] Controlled Substances Agreem entson 10-22-2020 Controlled Substances Agreements [id number]#1.00OTG TIFF [facility] Controlled Substances Agreements [id number]#1.00OTG TIFF [facility] Progress Note - Provideron 0 10-22-2020 Progress Note - Provider [id number]#1.00OTG TIFF [facility] Progress Note - Nurseon 02- Progress Note - Nurse Patient called requesting a refill on Percocet. OARRS is reviewed. Patient is compliant. Next appointment is scheduled. Order is sent to Nancy Johnson NP for approval and signature. [Electronically Signed on: 09/29/2020 14:18 EST] Mabel Treviño [Verified on: 09/29/2020 14:18 EST] Mabel Treviño [facility] Progress Note - Nurseon 12-0 Progress Note - Nurse patient called in refill request for oxycodone and trazodone. OARRS was reviewed. Patient is compliant. Refill request has been sent to Nancy Johnson for her approval. Follow up is in progress. [Electronically Signed on: 07/21/2020 13:41 EST] Karolina Walker [Verified on: 07/21/2020 13:41 EST] Karolina Walker [facility] Coding Summaryon 06-30-2020 Coding Summary CODING DATE: 020 [facility] STATUS: Home PAYOR: Medicare ADMIT DX: REASON [...] Chanelle Gillis Date Saved: 06/30/2020 12:44 pm [facility] Progress Note - Provideron 1 08-26-2019 Progress Note - Provider [id number]#1.00OTG TIFF [facility] Progress Note - Nurseon 05-15 Progress Note - Nurse pt calls for a ref ill on oxycodone. oarrs is reviewed and patient is complaint. order is sent to nancy johnson NP for approval. [Electronically Signed on: 06/02/2020 10:26 EDT] Mabel Treviño [Verified on: 06/02/2020 10:26 EDT] Mabel Treviño [facility] COVID-19 PCRon 05-15-2020 SARS-CoV-2, HAI Not Detected Normal Not Detected [facility] Comment on above: Result Comment: This nucleic acid amplification test was developed and its performance characteristics determined by [employer]. Nucleic acid amplification tests include PCR and [...] assay. Performed By: #### C VDPCR #### [facility] [address] [place] [address] Paige Rider XR CHEST 2 Von 05-14-2020 [...] by: ANSELMO GARCÍA Date: 2020-05-14 03:55 Normal [facility] Progress Note - Nurseon - Progress Note - Nurse Called for refill of oxycodone. Oarrs reviewed and patient is compliant. Follow up in place. Order proposed to Millie Johnson CNP for review. [Electronically Signed on: 04/28/2020 09:41 EDT] Uzma Arriola RN [Verified on: 04/28/2020 09:41 EDT] Uzma Arriola RN [facility] Progress Note - Nurseon 08-3 Progress Note - Nurse Called for refill of gabapentin. Oarrs reviewed and patient is compliant. Follow up in place. Order proposed to Millie Johnson CNP for review. [Electronically Signed on: 04/13/2020 10:11 EDT] Uzma Arriola RN [Verified on: 04/13/2020 10:11 EDT] Uzma Arriola RN [facility] Progress Note - Nurseon 03-14 Progress Note - Nurse Called for refill of oxycodone. Oarrs reviewed and patient is compliant. Follow up in place. Order proposed to Millie Johnson CNP for review. [Electronically Signed on: 03/31/2020 11:24 EDT] Uzma Arriola RN [Verified on: 03/31/2020 11:24 EDT] Uzma Arriola RN [facility] Progress Note - Provideron 0 03-16-2020 Progress Note - Provider [id number]#1.00OTG TIFF [facility] Coding Summaryon 03-12-2020 Coding Summary CODING DATE: 020 [facility] STATUS: Home PAYOR: Medicare ADMIT DX: REASON FOR VISIT DX: M54.5 Low back pain FINAL DX: PRINCIPAL: M54.5 Low back pain SECONDARY: M47.816 Spondylosis without myelopathy or radiculopathy, lumbar region G89.4 Chronic pain syndrome Z79.891 jail (current) use of opiate analgesic PYMT PROC APC STAT DESCRIPTION DOCTOR NAME DATE NOTE: The code number assigned matches the documented diagnosis and / or procedure in the patient's chart. However, the narrative phrase printed from the coding software may appear abbreviated, or result in slightly different terminology. Coded By: Chanelle Gillis Date Saved: 03/12/2020 01:20 pm [facility] Progress Note - Nurseon - Progress Note - Nurse pt calls states he needs a refill on oxycodone. oarrs is reviewed and pt is complaint. order is sent to nancy johnson Np for approval and signature, [Electronically Signed on: 03/03/2020 13:17 EDT] Mabel Treviño [Verified on: 03/03/2020 13:17 EDT] Mabel Treviño [facility] Basic Metabolic Panlon 04-27 Anion gap 3 molar conc 10 mmol/L Normal 9-18 [facility] Comment on above: Performed By: #### C BCDIF, BMP, MG1, PHOS ####[address] [phone] Calcium mass conc 8.1 mg/dL Low 8.5-10.5 [facility] Comment on above: Performed By: #### C BCDIF, BMP, MG1, PHOS ####[address] [phone] Chloride molar conc 102 mmol/L Normal 98-110 [facility] Comment on above: Performed By: #### C BCDIF, BMP, MG1, PHOS ####[address] [phone] CO2 molar conc 25 mmol/L Normal 23-32 [facility] Comment on above: Performed By: #### C BCDIF, BMP, MG1, PHOS ####[place] [phone] Creatinine mass conc 0.69 mg/dL Low 0.70-1.40 [facility] Comment on above: Performed By: #### C BCDIF, BMP, MG1, PHOS ####[place] [phone] eGFR- Amer. >60 Normal >60 [facility] Comment on above: Performed By: #### C BCDIF, BMP, MG1, PHOS ####[place] [phone] GFR/1.73 sq M predicted among non-blacks MDRD vol rate/area (S/P/Bld) mL/min/{1.73_m2} Normal >60 [facility] Comment on above: Performed By: #### C BCDIF, BMP, MG1, PHOS ####[place] [phone] Glucose mass conc 161 mg/dL High 65-100 [facility] Comment on above: Performed By: #### C BCDIF, BMP, MG1, PHOS ####[place] [phone] Potassium molar conc 3.9 mmol/L Normal 3.5-5.0 [facility] Comment on above: Performed By: #### C BCDIF, BMP, MG1, PHOS ####[place] [phone] Sodium molar conc 137 mmol/L Normal 135-146 [facility] Comment on above: Performed By: #### C BCDIF, BMP, MG1, PHOS ####[place] [phone] Urea nitrogen mass conc 6 mg/dL Low 10-25 [facility] Comment on above: Performed By: #### C BCDIF, BMP, MG1, PHOS ####[place] [phone] CASE MANAGEMon 04-27-2018 CASE MANAGEM HNO ID: [id number]: Tamra (Rn) Fei, RNService: Care ManagementAuthor Type: [...] 27, 2018 : 2:53 PM PAGER/CONTACT #: [phone] Normal [facility] CBC and Differentialon 04-27 Abs Baso <0.03 Normal <0.11 [facility] Comment on above: Performed By: #### C BCDIF, BMP, MG1, PHOS ####[place] [phone] Abs Isabella 0.52 k/uL Normal <0.87 [facility] Comment on above: Performed By: #### C BCDIF, BMP, MG1, PHOS ####[place] [phone] Abs Neut 3.90 k/uL Normal 1.45-7.50 [facility] Comment on above: Performed By: #### C BCDIF, BMP, MG1, PHOS ####[place] [phone] Basophils/100 WBC Auto (Bld) 0.2 % Normal [facility] Comment on above: Performed By: #### C BCDIF, BMP, MG1, PHOS ####[place] [phone] DTYPE Auto Diff Normal [facility] Comment on above: Performed By: #### C BCDIF, BMP, MG1, PHOS ####[place] [address] Eosinophils Auto #/vol (Bld) 10*3/uL Normal <0.46 [facility] Comment on above: Performed By: #### C BCDIF, BMP, MG1, PHOS ####[place] [address] Eosinophils/100 WBC Auto (Bld) 0.0 % Normal [facility] Comment on above: Performed By: #### C BCDIF, BMP, MG1, PHOS ####[place] [address] Erythrocyte distribution width Auto Ratio (RBC) 14.7 % Normal 11.5-15.0 [facility] Comment on above: Performed By: #### C BCDIF, BMP, MG1, PHOS ####[place] [address] Hematocrit Auto Volume Fraction (Bld) 34.6 % Low 39.0-51.0 [facility] Comment on above: Performed By: #### C BCDIF, BMP, MG1, PHOS ####[place] [address] Hemoglobin mass conc (Bld) 11.4 g/dL Low 13.0-17.0 [facility] Comment on above: Performed By: #### C BCDIF, BMP, MG1, PHOS ####[place] [address] Lymphocytes Auto #/vol (Bld) 1.57 10*3/uL Normal 1.00-4.00 [facility] Comment on above: Performed By: #### C BCDIF, BMP, MG1, PHOS ####[place] [phone] Lymphocytes/100 WBC Auto (Bld) 26.2 % Normal [facility] Comment on above: Performed By: #### C BCDIF, BMP, MG1, PHOS ####[place] [phone] MCH Auto Entitic mass (RBC) 28.9 pG Normal 26.0-34.0 [facility] Comment on above: Performed By: #### C BCDIF, BMP, MG1, PHOS ####[place] [phone] MCHC Auto mass conc (RBC) 32.9 g/dL Normal 30.5-36.0 [facility] Comment on above: Performed By: #### C BCDIF, BMP, MG1, PHOS ####[place] [phone] MCV Auto Entitic volume (RBC) 87.8 fL Normal 80.0-100.0 [facility] Comment on above: Performed By: #### C BCDIF, BMP, MG1, PHOS ####[place] [phone] Monocytes/100 WBC Auto (Bld) 8.7 % Normal [facility] Comment on above: Performed By: #### C BCDIF, BMP, MG1, PHOS ####[place] [phone] Neutrophils/100 WBC Auto (Bld) 64.9 % Normal [facility] Comment on above: Performed By: #### C BCDIF, BMP, MG1, PHOS ####[place] [phone] Platelet mean volume Auto Entitic volume (Bld) 12.5 fL Normal 9.0-12.7 [facility] Comment on above: Performed By: #### C BCDIF, BMP, MG1, PHOS ####[place] [phone] Platelets Auto #/vol (Bld) 77 10*3/uL Low 150-400 [facility] Comment on above: Result Comment: No c lot detected.Sample checked for a clot. Performed By: #### C BCDIF, BMP, MG1, PHOS ####[place] [phone] RBC Auto #/vol (Bld) 3.94 10*6/uL Low 4.20-6.00 [facility] Comment on above: Performed By: #### C BCDIF, BMP, MG1, PHOS ####[facility] [place], [place] [phone] WBC Auto #/vol (Bld) 6.00 10*3/uL Normal 3.70-11.00 [facility] Comment on above: Performed By: #### C BCDIF, BMP, MG1, PHOS ####[facility] [place], [place] [phone] CNDSon 04-27-2018 CNDS HNO ID: [id number]: Stoney (Res) HarlanirService: ColorectalAuthor Type: ResidentType: Discharge SummariesFiled: 04/27/2018 5:08 PMNote Text:DISCHARGE SUMMARYPATIENT NAME: Ruth Smith ADMISSION DATE: 04/23/2018MRN: [id number] DISCHARGE DATE: 04/27/2018Attending: Des Whittingtoneason for Hospitalization: [...] for cancer and a flat polyp and [id number] is segmental resection. Patient has a history of diabetes andsignificant history of myocardial infarction in his family. Cardiologyclearance was obtained.Hospital Course:The patient was admitted to the hospital with the above history. Thepatient was transferred to the OR and a laparoscopic hand assisted sigmoidcolectomy, with side to side stapled colorectal anastomosis was performed.Patient tolerated the procedure well and was transferred to the regularnursing floor. During the post op course patient [...] 27, 2018 : 5:01 PM PAGER/CONTACT #: [phone] Normal [facility] Magnesiumon 04-27-2018 Magnesium mass conc 1.6 mg/dL Low 1.7-2.6 [facility] Comment on above: Performed By: #### C BCDIF, BMP, MG1, PHOS ####[facility] [place], [place] [phone] PROGRESSon 04-27-2018 Protein mass conc HNO ID: [id number]: Stoney (Res) MubashirService: ColorectalAuthor Type: ResidentType: Progress NotesFiled: 04/27/2018 9:12 AMNote Text:Colorectal Surgery Progress NoteName: Ruth SmithMRN: [id number] al update:Overall, patient is doing well. Overnight, reports being uncomfortable,and sore. 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-Denies fevers, chills, chest pain, shortness of breath-No [...] 04/27/18 0659 04/27/18 0700 - 04/28/18 0659Shift 3035-2981 9624-2974 4277-2715 24 Hour Total 1502-2625 8505-10190115-1270 24 Hour TotalINTAKE PO 2810 660 7202 PO 9668 802 0286 IV 204 383 627 8645 NS 0.9% 204 947 506 9983 Shift Total 1404 814 518 2736OUTPUT Urine 2800 249 865 9045 750 750 Tube Output ([REMOVED] Indwelling Urinary Catheter 04/25/18 1019Assessment Coude 04/27/18 0735) 2800 305 409 8827 750 750 Shift Total 2800 697 239 6237 750 750Weight (kg) 120 120 120 120 [...] doing well.PLAN:-diet: continue GIS-palacios to be discontinued-takedown BANANA RIPENING ROOM SUPERVISOR today-PT/OT- Encourage incentive spirometry and ambulation- SCD's and SQH for DVT prophylaxis- Dispo: continue care on RNFSIGNATURE: Stoney Crawford MD PATIENT NAME: Ruth SmithDATE: April 27, 2018 : 9:08 AM PAGER/CONTACT #: [phone] Normal [facility] Phosphoruson 04-27-2018 Phosphate mass conc 2.9 mg/dL Normal 2.5-4.5 [facility] Comment on above: Performed By: #### C BCDIF, BMP, MG1, PHOS ####[place] [phone] [place], [place] [phone] THERAPY NTon 04-27-2018 THERAPY NT HNO ID: [id number]: Yady HallPtEric ManriqueeService: Physical TherapyAuthor Type: Physical TherapistType: Therapy (PT/OT/Speech/Resp)Filed : 04/27/2018 11:02 AMNote Text:PHYSICAL THERAPY MISSED VISITSERVICE DATE: 04/27/2018SERVICE TIME: 1030 to 1030ROOM: [id number] Treatment. Patient not seen due to Other: See Comment. Patientobserved walking independently in the halls.SIGNATURE: Yady Cloud PT PATIENT NAME: Ruth FernandezTE: April 27, 2018 : 11:00 AM Normal [facility] Basic Metabolic Panlon 04-26 Anion gap 3 molar conc 10 mmol/L Normal 05-01 [facility] Comment on above: Performed By: #### B MP, MG1, PHOS, CBCDIF ####[facility] [place], [place] [phone] Calcium mass conc 8.4 mg/dL Low 8.5-10.5 [facility] Comment on above: Performed By: #### B MP, MG1, PHOS, CBCDIF ####[address] Chloride molar conc 102 mmol/L Normal 98-110 [facility] Comment on above: Performed By: #### B MP, MG1, PHOS, CBCDIF ####[place] [address] CO2 molar conc 24 mmol/L Normal 23-32 [facility] Comment on above: Performed By: #### B MP, MG1, PHOS, CBCDIF ####[place] [address] Creatinine mass conc 0.62 mg/dL Low 0.70-1.40 [facility] Comment on above: Performed By: #### B MP, MG1, PHOS, CBCDIF ####[address] eGFR- Amer. >60 Normal >60 [facility] Comment on above: Performed By: #### B MP, MG1, PHOS, CBCDIF ####[address] GFR/1.73 sq M predicted among non-blacks MDRD vol rate/area (S/P/Bld) mL/min/{1.73_m2} Normal >60 [facility] Comment on above: Performed By: #### B MP, MG1, PHOS, CBCDIF ####[place] [phone] Glucose mass conc 113 mg/dL High 65-100 [facility] Comment on above: Performed By: #### B MP, MG1, PHOS, CBCDIF ####[place] [phone] Potassium molar conc 4.3 mmol/L Normal 3.5-5.0 [facility] Comment on above: Result Comment: Revi ewed Performed By: #### B MP, MG1, PHOS, CBCDIF ####[place] [phone] Sodium molar conc 136 mmol/L Normal 135-146 [facility] Comment on above: Performed By: #### B MP, MG1, PHOS, CBCDIF ####[place] [phone] Urea nitrogen mass conc 5 mg/dL Low 10-25 [facility] Comment on above: Performed By: #### B MP, MG1, PHOS, CBCDIF ####[place] [phone] CBC and Differentialon 04-26 Abs Baso <0.03 Normal <0.11 [facility] Comment on above: Performed By: #### B MP, MG1, PHOS, CBCDIF ####[place] [phone] Abs Isabella 0.66 k/uL Normal <0.87 [facility] Comment on above: Performed By: #### B MP, MG1, PHOS, CBCDIF ####[place] [phone] Abs Neut 4.86 k/uL Normal 1.45-7.50 [facility] Comment on above: Performed By: #### B MP, MG1, PHOS, CBCDIF ####[place] [phone] Basophils/100 WBC Auto (Bld) 0.1 % Normal [facility] Comment on above: Performed By: #### B MP, MG1, PHOS, CBCDIF ####[place] [phone] DTYPE Auto Diff Normal [facility] Comment on above: Performed By: #### B MP, MG1, PHOS, CBCDIF ####[place] [phone] Eosinophils Auto #/vol (Bld) 10*3/uL Normal <0.46 [facility] Comment on above: Performed By: #### B MP, MG1, PHOS, CBCDIF ####[place] [address] Eosinophils/100 WBC Auto (Bld) 0.0 % Normal [facility] Comment on above: Performed By: #### B MP, MG1, PHOS, CBCDIF ####[place] [address] Erythrocyte distribution width Auto Ratio (RBC) 14.9 % Normal 11.5-15.0 [facility] Comment on above: Performed By: #### B MP, MG1, PHOS, CBCDIF ####[place] [address] Hematocrit Auto Volume Fraction (Bld) 37.1 % Low 39.0-51.0 [facility] Comment on above: Performed By: #### B MP, MG1, PHOS, CBCDIF ####[place] [address] Hemoglobin mass conc (Bld) 12.0 g/dL Low 13.0-17.0 [facility] Comment on above: Performed By: #### B MP, MG1, PHOS, CBCDIF ####[place] [address] Lymphocytes Auto #/vol (Bld) 1.40 10*3/uL Normal 1.00-4.00 [facility] Comment on above: Performed By: #### B MP, MG1, PHOS, CBCDIF ####[address] Lymphocytes/100 WBC Auto (Bld) 20.2 % Normal [facility] Comment on above: Performed By: #### B MP, MG1, PHOS, CBCDIF ####[place] [phone] MCH Auto Entitic mass (RBC) 28.9 pG Normal 26.0-34.0 [facility] Comment on above: Performed By: #### B MP, MG1, PHOS, CBCDIF ####[place] [phone] MCHC Auto mass conc (RBC) 32.3 g/dL Normal 30.5-36.0 [facility] Comment on above: Performed By: #### B MP, MG1, PHOS, CBCDIF ####[place] [phone] MCV Auto Entitic volume (RBC) 89.4 fL Normal 80.0-100.0 [facility] Comment on above: Performed By: #### B MP, MG1, PHOS, CBCDIF ####[place] [address] Monocytes/100 WBC Auto (Bld) 9.5 % Normal [facility] Comment on above: Performed By: #### B MP, MG1, PHOS, CBCDIF ####[address] Neutrophils/100 WBC Auto (Bld) 70.2 % Normal [facility] Comment on above: Performed By: #### B MP, MG1, PHOS, CBCDIF ####[place] [phone] Platelet mean volume Auto Entitic volume (Bld) 13.7 fL High 9.0-12.7 [facility] Comment on above: Performed By: #### B MP, MG1, PHOS, CBCDIF ####[place] [address] Platelets Auto #/vol (Bld) 83 10*3/uL Low 150-400 [facility] Comment on above: Result Comment: Revi ewedSample checked for a clot. Performed By: #### B MP, MG1, PHOS, CBCDIF ####[place] [phone] RBC Auto #/vol (Bld) 4.15 10*6/uL Low 4.20-6.00 [facility] Comment on above: Performed By: #### B MP, MG1, PHOS, CBCDIF ####[place] [address] WBC Auto #/vol (Bld) 6.93 10*3/uL Normal 3.70-11.00 [facility] Comment on above: Performed By: #### B MP, MG1, PHOS, CBCDIF ####[place] [phone] Magnesiumon 04-26-2018 Magnesium mass conc 1.7 mg/dL Normal 1.7-2.6 [facility] Comment on above: Performed By: #### B MP, MG1, PHOS, CBCDIF ####[phone] NURSING PROGon 04-26-2018 Protein mass conc HNO ID: [id number]: Pilar (Elias) Brisa Daveyice: (none)Author Type: Registered NurseType: Nursing Progress NoteFiled: 04/27/2018 1:14 AMNote Text: Nursing Progress NotePatient Name: Ruth SmithMRN: [id number] Location: [place] [address]____ Daily Note:tolerating gi soft diet without n/v. ambulated pod with 1assist and walker. several times. abdomemn is distended and tender,sites look [id number] up in room, pas on when not ambulatingThis note was completed by: Pilar Davey RN [facility] Protein mass conc HNO ID: [id number]: Liz HallRn) Brisa Chuice: (none)Author Type: Registered NurseType: Nursing Progress NoteFiled: 04/26/2018 2:44 AMNote Text: Nursing Progress NotePatient Name: Ruth SmithMRN: [id number] [id number]____ Daily note: Pt ambulated the POD several times tonight, has had multipleBM's, still taking oxy for pain as well as using the BANANA RIPENING ROOM SUPERVISOR pump but says heis trying to hit the pump less. Will continue to monitor and check withpatient.This note was completed by: Liz Chu RN [facility] PROGRESSon 04-26-2018 Protein mass conc HNO ID: [id number]: Stoney (Res) MubashirService: ColorectalAuthor Type: ResidentType: Progress NotesFiled: 04/26/2018 7:43 AMNote Text:Colorectal Surgery Progress NoteName: Ruth SmithMRN: [id number] al update:Overall, patient is doing well. Overnight, reports being uncomfortable,and sore. 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-Denies fevers, chills, chest pain, shortness of breath-No [...] respirations.Date 04/25/18 07 - 04/26/18 0659 04/26/18 07 - 04/27/18 0659Shift 6845-5061 0718-4132 7779-4131 24 Hour Total 0831-2790 1884-59695736-2545 24 Hour TotalINTAKE PO 610 096 5514 2405 PO 633 947 1662 2405 IV 890 7699 680 3682 NS 0.9% 640 2785 173 7145 Potassium Phosphate 250 250 Shift Total 1130 2025 1675 4830OUTPUT Urine 845 1625 3875 6371 Void (ml) 0 0 Tube Output ( Indwelling Urinary Catheter 04/25/18 1019 AssessmentCoude) 845 1625 3875 6301 # of BMs Number of BMs 1 x 1 x Shift Total 845 1625 3875 6347Weight (kg) 120 120 120 120 120 120 [...] 5-10 mg ORAL q 4 H PRNHYDROmorphone BANANA RIPENING ROOM SUPERVISOR 0.5 mg/mL in NaCl 0.9% 100 mL [...] doing well.PLAN:-diet: continue clear liquids-PT/OT-keep palacios in-decrease BANANA RIPENING ROOM SUPERVISOR settings- Encourage incentive spirometry and ambulation- SCD's and H for DVT prophylaxis- Dispo: continue care on RNF?SIGNATURE: Stoney Crawford MD PATIENT NAME: Ruth SmithDATE: April 26, 2018 : 7:42 AM PAGER/CONTACT #: [phone] Normal [facility] Phosphoruson 04-26-2018 Phosphate mass conc 2.1 mg/dL Low 2.5-4.5 [facility] Comment on above: Performed By: #### B MP, MG1, PHOS, CBCDIF ####[facility] [place], [place] [phone] Basic Metabolic Panlon 04-25 Anion gap 3 molar conc 10 mmol/L Normal 9-18 [facility] Comment on above: Performed By: #### C BCDIF, BMP, MG1, PHOS ####[place] [address] Calcium mass conc 7.8 mg/dL Low 8.5-10.5 [facility] Comment on above: Performed By: #### C BCDIF, BMP, MG1, PHOS ####[place] [phone] Chloride molar conc 99 mmol/L Normal 98-110 [facility] Comment on above: Performed By: #### C BCDIF, BMP, MG1, PHOS ####[place] [address] CO2 molar conc 27 mmol/L Normal 23-32 [facility] Comment on above: Performed By: #### C BCDIF, BMP, MG1, PHOS ####[place] [address] Creatinine mass conc 0.70 mg/dL Normal 0.70-1.40 [facility] Comment on above: Performed By: #### C BCDIF, BMP, MG1, PHOS ####[place] [phone] eGFR- Amer. >60 Normal >60 [facility] Comment on above: Performed By: #### C BCDIF, BMP, MG1, PHOS ####[place] [phone] GFR/1.73 sq M predicted among non-blacks MDRD vol rate/area (S/P/Bld) mL/min/{1.73_m2} Normal >60 [facility] Comment on above: Performed By: #### C BCDIF, BMP, MG1, PHOS ####[place] [id number] Glucose mass conc 98 mg/dL Normal 65-100 [facility] Comment on above: Performed By: #### C BCDIF, BMP, MG1, PHOS ####[address] Potassium molar conc 3.3 mmol/L Low 3.5-5.0 [facility] Comment on above: Performed By: #### C BCDIF, BMP, MG1, PHOS ####[place] [address] Sodium molar conc 136 mmol/L Normal 135-146 [facility] Comment on above: Performed By: #### C BCDIF, BMP, MG1, PHOS ####[place] [address] Urea nitrogen mass conc 12 mg/dL Normal 10-25 [facility] Comment on above: Performed By: #### C BCDIF, BMP, MG1, PHOS ####[place] [address] CBC and Differentialon 04-25 Abs Baso <0.03 Normal <0.11 [facility] Comment on above: Performed By: #### C BCDIF, BMP, MG1, PHOS ####[place] [address] Abs Isabella 0.59 k/uL Normal <0.87 [facility] Comment on above: Performed By: #### C BCDIF, BMP, MG1, PHOS ####[place] [phone] Abs Neut 4.45 k/uL Normal 1.45-7.50 [facility] Comment on above: Performed By: #### C BCDIF, BMP, MG1, PHOS ####[address] Basophils/100 WBC Auto (Bld) 0.2 % Normal [facility] Comment on above: Performed By: #### C BCDIF, BMP, MG1, PHOS ####[address] DTYPE Auto Diff Normal [facility] Comment on above: Performed By: #### C BCDIF, BMP, MG1, PHOS ####[place] [phone] Eosinophils Auto #/vol (Bld) 10*3/uL Normal <0.46 [facility] Comment on above: Performed By: #### C BCDIF, BMP, MG1, PHOS ####[address] Eosinophils/100 WBC Auto (Bld) 0.0 % Normal [facility] Comment on above: Performed By: #### C BCDIF, BMP, MG1, PHOS ####[place] [address] Erythrocyte distribution width Auto Ratio (RBC) 15.2 % High 11.5-15.0 [facility] Comment on above: Performed By: #### C BCDIF, BMP, MG1, PHOS ####[address] Hematocrit Auto Volume Fraction (Bld) 34.7 % Low 39.0-51.0 [facility] Comment on above: Performed By: #### C BCDIF, BMP, MG1, PHOS ####[place] [phone] Hemoglobin mass conc (Bld) 11.2 g/dL Low 13.0-17.0 [facility] Comment on above: Performed By: #### C BCDIF, BMP, MG1, PHOS ####[place] [phone] Lymphocytes Auto #/vol (Bld) 1.31 10*3/uL Normal 1.00-4.00 [facility] Comment on above: Performed By: #### C BCDIF, BMP, MG1, PHOS ####[place] [phone] Lymphocytes/100 WBC Auto (Bld) 20.6 % Normal [facility] Comment on above: Performed By: #### C BCDIF, BMP, MG1, PHOS ####[place] [phone] MCH Auto Entitic mass (RBC) 28.6 pG Normal 26.0-34.0 [facility] Comment on above: Performed By: #### C BCDIF, BMP, MG1, PHOS ####[place] [phone] MCHC Auto mass conc (RBC) 32.3 g/dL Normal 30.5-36.0 [facility] Comment on above: Performed By: #### C BCDIF, BMP, MG1, PHOS ####[place] [phone] MCV Auto Entitic volume (RBC) 88.5 fL Normal 80.0-100.0 [facility] Comment on above: Performed By: #### C BCDIF, BMP, MG1, PHOS ####[place] [phone] Monocytes/100 WBC Auto (Bld) 9.3 % Normal [facility] Comment on above: Performed By: #### C BCDIF, BMP, MG1, PHOS ####[place] [phone] Neutrophils/100 WBC Auto (Bld) 69.9 % Normal [facility] Comment on above: Performed By: #### C BCDIF, BMP, MG1, PHOS ####[place] [phone] Platelet mean volume Auto Entitic volume (Bld) 12.7 fL Normal 9.0-12.7 [facility] Comment on above: Performed By: #### C BCDIF, BMP, MG1, PHOS ####[place] [phone] Platelets Auto #/vol (Bld) 67 10*3/uL Low 150-400 [facility] Comment on above: Result Comment: Resu lt checked and verifiedSample checked for a clot. Performed By: #### C BCDIF, BMP, MG1, PHOS ####[place] [phone] RBC Auto #/vol (Bld) 3.92 10*6/uL Low 4.20-6.00 [facility] Comment on above: Performed By: #### C BCDIF, BMP, MG1, PHOS ####[place] [phone] WBC Auto #/vol (Bld) 6.36 10*3/uL Normal 3.70-11.00 [facility] Comment on above: Performed By: #### C BCDIF, BMP, MG1, PHOS ####[place] [phone] Magnesiumon 04-25-2018 Magnesium mass conc 1.8 mg/dL Normal 1.7-2.6 [facility] Comment on above: Performed By: #### C BCDIF, BMP, MG1, PHOS ####[place] [phone] NURSING PROGon 04-25-2018 Protein mass conc HNO ID: [id number]: Samaria Lea (Rn) DANIA Hernandezervice: (none)Author Type: Registered NurseType: Nursing Progress NoteFiled: 04/25/2018 11:37 AMNote Text: Nursing Progress NotePatient Name: Ruth SmithMRN: [id number] [facility]____ Daily Note: Patient was unable to void and kept trying but Dr ordered toreplace palacios catheter and initially 500ml out; he has been walking theentire pod already a few times today tolerates well, had a liquid bm, +flatus, started a clear liquid diet, tolerating, still has some abdominaldistention, uses detonator maker for pain control and prn oxy pain score 7 to 8,receiving KPhos bolus and po K+, stable, continue to monitor.This note was completed by: Samaria Hernandez RN [facility] Protein mass conc HNO ID: [id number]: Azul (Elias) DANIA Tobarervice: (none)Author Type: Registered NurseType: Nursing Progress NoteFiled: 04/25/2018 6:48 AMNote Text: Nursing Progress NotePatient Name: Ruth SmithMRN: [id number] Location: [place] [address]/LI-JW3X-17____ Daily Note: 1944 (late entry): Pt unable to void since palacios removal thisafternoon. Pt bladder scanned for 168 mL. Safety maintained [facility]. Will continue to monitor.0019 (late entry): [...] 305 mL. Text page sent to surgical residentDrKelvin Crawford to make aware. Will await further orders.This note was completed by: Azul Tobar RN [facility] PROGRESSon 04-25-2018 Protein mass conc HNO ID: [id number]: Stoney (Alexis) Shruthiervice: ColorectalAuthor Type: ResidentType: Progress NotesFiled: 04/25/2018 1:35 PMNote Text:Colorectal Surgery Progress NoteName: Ruth SmithMRN: [id number] al update:Overall, patient is doing well. Overnight, pt unable to void since foleyremoval yesterday afternoon. Pt bladder scanned for 168 mL. Pt straightcathed for 650 mL of dark lita urine, tolerated well. Unable to voidagain several hours later, palacios replaced.-Pain controlled with BANANA RIPENING ROOM SUPERVISOR, feels uncomfortable-Denies fevers, chills, chest pain, shortness [...] 04/25/18 0659 04/25/18 07 - 04/26/18 0659Shift 4221-0069 9452-8716 9904-8788 24 Hour Total 2363-4283 7080-34404293-3033 24 Hour TotalINTAKE PO 200 280 120 600 120 120 PO 200 280 120 600 120 120 IV 591 451 855 4201 NS 0.9% 767 383 7369 LR 591 591 Shift Total 791 5845 824 5956 120 120OUTPUT Urine 225 650 875 845 [...] 5-10 mg ORAL q 4 H PRNHYDROmorphone BANANA RIPENING ROOM SUPERVISOR 0.5 mg/mL in NaCl 0.9% 100 mL [...] 140* 242*CA 7.8* 8.2* 8.1* 8.6LFT'sRecent Labs 159212WSZCM 7.9ALB 4.5ALT 29AST 58*ALKPHOS 60TBILI 1.2Assessment/Plan49 M, POD 2 s/p laparoscopic hand assisted sigmoid colectomy, with side toside stapled colorectal anastomosis. Clinically doing well.PLAN:-diet: clear liquids-PT/OT- Encourage incentive spirometry and ambulation- SCD's and SQH for DVT prophylaxis- Dispo: continue care on RNF?SIGNATURE: Stoney Crawford MD PATIENT NAME: Ruth SmithDATE: April 25, 2018 : 1:35 PM PAGER/CONTACT #: [phone] [facility] PT EDon 04-25-2018 PT ED HNO ID: [id number]: [place] (Diet-T) AdrianService: Nutrition TherapyAuthor Type: Dietetic TechnicianType: Patient EducationFiled: 04/25/2018 1:58 PMNote Text:NUTRITION PATIENT EDUCATIONTOPIC: Survival Skills: DietPATIENT NAME: Ruth SmithMRN: [id number] DATE: April 25, 2018Diagnosis: ADULT: Colon CancerREADINESS [...] Routine Care/15 min 3 Mg GUAJARDO, diet-tPager: [id number] 20171:57 PM Normal [facility] Phosphoruson 04-25-2018 Phosphate mass conc 2.4 mg/dL Low 2.5-4.5 [facility] Comment on above: Performed By: #### C BCDIF, BMP, MG1, PHOS ####[place] [phone] Basic Metabolic Panlon 04-24 Anion gap 3 molar conc 14 mmol/L Normal 9-18 [facility] Comment on above: Performed By: #### B MP ####[place] [phone] Calcium mass conc 8.2 mg/dL Low 8.5-10.5 [facility] Comment on above: Performed By: #### B MP ####[place] [phone] Chloride molar conc 96 mmol/L Low 98-110 [facility] Comment on above: Performed By: #### B MP ####[place] [phone] CO2 molar conc 25 mmol/L Normal 23-32 [facility] Comment on above: Performed By: #### B MP ####[place] [phone] Creatinine mass conc 0.69 mg/dL Low 0.70-1.40 [facility] Comment on above: Performed By: #### B MP ####[place] [phone] eGFR- Amer. >60 Normal >60 [facility] Comment on above: Performed By: #### B MP ####[place] [phone] GFR/1.73 sq M predicted among non-blacks MDRD vol rate/area (S/P/Bld) mL/min/{1.73_m2} Normal >60 [facility] Comment on above: Performed By: #### B MP ####[place] [phone] Glucose mass conc 161 mg/dL High 65-100 [facility] Comment on above: Performed By: #### B MP ####[place] [phone] Potassium molar conc 3.8 mmol/L Normal 3.5-5.0 [facility] Comment on above: Result Comment: Revi maguied Performed By: #### B MP ####[place] [phone] Sodium molar conc 135 mmol/L Normal 135-146 [facility] Comment on above: Performed By: #### B MP ####[place] [phone] Urea nitrogen mass conc 15 mg/dL Normal 10-25 [facility] Comment on above: Performed By: #### B MP ####[place] [phone] Anion gap 3 molar conc 12 mmol/L Normal 9-18 [facility] Comment on above: Performed By: #### T SCR30 ####[place] [phone] Calcium mass conc 8.1 mg/dL Low 8.5-10.5 [facility] Comment on above: Performed By: #### T SCR30 ####[place] [phone] Chloride molar conc 96 mmol/L Low 98-110 [facility] Comment on above: Performed By: #### T SCR30 ####[place] [phone] CO2 molar conc 28 mmol/L Normal 23-32 [facility] Comment on above: Performed By: #### T SCR30 ####[place] [phone] Creatinine mass conc 0.77 mg/dL Normal 0.70-1.40 [facility] Comment on above: Performed By: #### T SCR30 ####[place] [phone] eGFR- Amer. >60 Normal >60 [facility] Comment on above: Performed By: #### T SCR30 ####[place] [phone] GFR/1.73 sq M predicted among non-blacks MDRD vol rate/area (S/P/Bld) mL/min/{1.73_m2} Normal >60 [facility] Comment on above: Performed By: #### T SCR30 ####[place] [phone] Glucose mass conc 140 mg/dL High 65-100 [facility] Comment on above: Performed By: #### T SCR30 ####[place] [phone] Potassium molar conc 3.1 mmol/L Low 3.5-5.0 [facility] Comment on above: Performed By: #### T SCR30 ####[place] [phone] Sodium molar conc 136 mmol/L Normal 135-146 [facility] Comment on above: Performed By: #### T SCR30 ####[place] [phone] Urea nitrogen mass conc 14 mg/dL Normal 10-25 [facility] Comment on above: Performed By: #### T SCR30 ####[place] [phone] CASE MGT INIT ASSESon 2017 CASE MGT INIT ASSDECLAN HNO ID: [id number]: Myah (Rn) DANIA Espitiaervice: Care ManagementAuthor Type: Registered NurseType: Care Mgt Initial AssessmentFiled: 04/24/2018 3:07 PMNote Text:CARE MANAGEMENT: ASSESSMENT AND DISCHARGE PLANSERVICE DATE: 04/24/2018SERVICE TIME: 3:[address] 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 NoAdvance Directive:Current Advance Directive: Health Care Power of AttorneyIn Chart: NoCare Peripatologist Attempted to Assist with AD Completion: YesAction: [...] - StraightHas the Patient Been in a Penitentiary Facility in the Past 30 days? NoSOCIAL:Living Arrangement: HomeLives With: grandma and grandpaFinancial Resources: DisabledPrimary Contact: Extended Emergency Contact InformationPrimary Emergency Contact: Matt Mahan Yovmoa Ikegdvpu: GrandparentSupportive: YesOther Important Patient Contacts: NoneCaregiver Assessment:Caregiver [...] - 0I feel financially burdened by my mwm-rd-bdhaer expenses for myprescription medication: Disagree mostly -0Patient [...] Needs: NoneFREEDOM OF CHOICE EXPLAINED:N/APOTENTIAL TRANSITION PLANSHomeThis nurse case management met with the patient at bedside. Patient [...] 2018 : 3:01 PM PAGER/CONTACT #: Normal [facility] CBC and Differentialon 04-24 Abs Baso <0.03 Normal <0.11 [facility] Comment on above: Performed By: #### B ANA MARIA PHOOzzy, CBCDIF, MG1 ####[facility] [place], [place] [phone] Abs Isabella 0.65 k/uL Normal <0.87 [facility] Comment on above: Performed By: #### B RAFI RODGERS, IKERDIF, MG1 ####[facility] [place], [place] [phone] Abs Neut 3.98 k/uL Normal 1.45-7.50 [facility] Comment on above: Performed By: #### B RAFI RODGERS, CBCDIF, MG1 ####[address] [phone] Basophils/100 WBC Auto (Bld) 0.2 % Normal [facility] Comment on above: Performed By: #### B MP, PHOS, CBCDIF, MG1 ####[place] [address] DTYPE Auto Diff Normal [facility] Comment on above: Performed By: #### B MP, PHOS, CBCDIF, MG1 ####[place] [address] Eosinophils Auto #/vol (Bld) 10*3/uL Normal <0.46 [facility] Comment on above: Performed By: #### B MP, PHOS, CBCDIF, MG1 ####[place] [address] Eosinophils/100 WBC Auto (Bld) 0.3 % Normal [facility] Comment on above: Performed By: #### B MP, PHOS, CBCDIF, MG1 ####[place] [address] Erythrocyte distribution width Auto Ratio (RBC) 15.2 % High 11.5-15.0 [facility] Comment on above: Performed By: #### B MP, PHOS, CBCDIF, MG1 ####[address] Hematocrit Auto Volume Fraction (Bld) 36.4 % Low 39.0-51.0 [facility] Comment on above: Performed By: #### B MP, PHOS, CBCDIF, MG1 ####[place] [phone] Hemoglobin mass conc (Bld) 11.9 g/dL Low 13.0-17.0 [facility] Comment on above: Performed By: #### B MP, PHOS, CBCDIF, MG1 ####[place] [phone] Lymphocytes Auto #/vol (Bld) 1.16 10*3/uL Normal 1.00-4.00 [facility] Comment on above: Performed By: #### B MP, PHOS, CBCDIF, MG1 ####[place] [phone] Lymphocytes/100 WBC Auto (Bld) 19.9 % Normal [facility] Comment on above: Performed By: #### B MP, PHOS, CBCDIF, MG1 ####[place] [phone] MCH Auto Entitic mass (RBC) 28.3 pG Normal 26.0-34.0 [facility] Comment on above: Performed By: #### B MP, PHOS, CBCDIF, MG1 ####[place] [phone] MCHC Auto mass conc (RBC) 32.7 g/dL Normal 30.5-36.0 [facility] Comment on above: Performed By: #### B MP, PHOS, CBCDIF, MG1 ####[place] [phone] MCV Auto Entitic volume (RBC) 86.7 fL Normal 80.0-100.0 [facility] Comment on above: Performed By: #### B MP, PHOS, CBCDIF, MG1 ####[place] [phone] Monocytes/100 WBC Auto (Bld) 11.2 % Normal [facility] Comment on above: Performed By: #### B MP, PHOS, CBCDIF, MG1 ####[place] [phone] Neutrophils/100 WBC Auto (Bld) 68.4 % Normal [facility] Comment on above: Performed By: #### B MP, PHOS, CBCDIF, MG1 ####[place] [phone] Platelet mean volume Auto Entitic volume (Bld) 13.3 fL High 9.0-12.7 [facility] Comment on above: Performed By: #### B MP, PHOS, CBCDIF, MG1 ####[place] [phone] Platelets Auto #/vol (Bld) 68 10*3/uL Low 150-400 [facility] Comment on above: Result Comment: Revi ewedSample checked for a clot. Performed By: #### B MP, PHOS, CBCDIF, MG1 ####[place] [phone] RBC Auto #/vol (Bld) 4.20 10*6/uL Normal 4.20-6.00 [facility] Comment on above: Performed By: #### B MP, PHOS, CBCDIF, MG1 ####[place] [phone] WBC Auto #/vol (Bld) 5.82 10*3/uL Normal 3.70-11.00 [facility] Comment on above: Performed By: #### B MP, PHOS, CBCDIF, MG1 ####[place] [phone] Magnesiumon 04-24-2018 Magnesium mass conc 1.9 mg/dL Normal 1.7-2.6 [facility] Comment on above: Performed By: #### B MP, PHOS, CBCDIF, MG1 ####[place] [phone] NURSING PROGon 04-24-2018 Protein mass conc HNO ID: [id number]: Bentley (Rn) DANIA Thompsonervice: (none)Author Type: Registered NurseType: Nursing Progress NoteFiled: 04/24/2018 5:47 PMNote Text: Nursing Progress NotePatient Name: Ruth SmithMRN: [id number] Location: [facility]3A03/KG-QJ7D-31____ Daily Note:04/24/18 0744- Sent page to Dr. Webb to clarify K+ order.0845- Spoke with Dr. Webb, she clarified the patient should [id number] of IV K+.0930- Patient was assisted to the chair with two person assist and awalker. Patient tolerated the movement well. Patient is alert andoriented times three, calm and cooperative. Vitals are stable, oxygensaturation is adequate on room air. Changed fluids to normal saline perorders; BANANA RIPENING ROOM SUPERVISOR settings verified against orders. Pain controlled with BANANA RIPENING ROOM SUPERVISOR,scheduled tylenol and toradol. Hand grasps and push/pulls [...] note was completed by: Bentley Thompson RN [facility] PROGRESSon 04-24-2018 Protein mass conc HNO ID: [id number]: Stoney (Res) MubashirService: ColorectalAuthor Type: ResidentType: Progress NotesFiled: 04/24/2018 8:46 AMNote Text:Colorectal Surgery Progress NoteName: Ruth SmithMRN: [id number] al update:Overall, patient is doing well. No significant overnight issues noted.-Pain present, controlled with BANANA RIPENING ROOM SUPERVISOR-Denies fevers, chills, chest pain, shortness of breath-No [...] 04/24/18 0659 04/24/18 07 - 04/25/18 0659Shift 2457-1003 9974-1376 7233-1894 24 Hour Total 8007-6350 0155-56975872-4534 24 Hour TotalINTAKE PO 40 60 100 PO 40 60 100 IV 1800 50 1031 2881 Magnesium IVPB 50 50 LR 1031 1031 OR Crystalloid intake (mL) 1800 1800 Other 400 400 PACU ([facility] Only) 400 400 Shift Total 4563 075 6041 3381OUTPUT Urine 350 378 318 5583 75 75 OR Urine Output 350 350 Tube Output ( Indwelling Urinary Catheter 04/23/18 1118 Pal[place]ios 16Fr) 700 100 800 75 75 # of BMs Number of BMs 0 x 0 x Blood 50 50 Estimated Blood loss 50 50 Shift Total 400 422 826 7933 75 75Weight (kg) 120 120 120 120 [...] 5-10 mg ORAL q 4 H PRNHYDROmorphone BANANA RIPENING ROOM SUPERVISOR 0.5 mg/mL in NaCl 0.9% 100 mL [...] 36.4* 38.1* 51.6*PLT 68* 77* 123*BMPRecent Labs 7 2 NA 136 135 141K 3.1* 3.5 4.5CHLOR 96* [...] 24, 2018 : 8:42 AM PAGER/CONTACT #: [phone] Normal [facility] Phosphoruson 04-24-2018 Phosphate mass conc 3.3 mg/dL Normal 2.5-4.5 [facility] Comment on above: Performed By: #### T SCR30 ####[facility] [place], [place] [phone] THERAPY NTon 04-24-2018 THERAPY NT HNO ID: [id number]: Ruby (Ot) GarnekService: Occupational TherapyAuthor Type: Occupational TherapistType: Therapy (PT/OT/Speech/Resp)Filed : 04/24/2018 2:20 PMNote Text:Occupational Therapy EvaluationSERVICE DATE: 04/24/2018SERVICE TIME: 1300 to 1325ROOM: [id number] CA, S/P Laparoscopic Left Duncan-Colectomy 04/23/18Recommended Discharge Disposition: HomeAnticipated Discharge Needs: Physical Assist at HomePhysical Assist at Home for: Laundry;Cleaning;Shoppin g;TransportationRecommen ded Discharge Equipment: Elastic Shoe Laces;Grab Bars-Shower;HandHeld Shower;Long Handled Shoe Horn;Long Handled Sponge;WheeledWalker;Ramona fly;Sock Aide;Shower ChairOT Recommendations to Nursing: Transfer [...] For Complete PastMedical History Please [facility]. Pt presents with decreased abilityto complete [...] Pt has grandparents for support. Pt resides [place], [place], and plans to return home.Patient Disposition [...] (ADL);Muscle Weakness (generalized)Interventio ns Provided: Evaluation;Therapeutic Activity (75402)$ Evaluation-Low (94446) Billed Units: 1 unitTherapeutic Activity (14003) Treatment Minutes: 101 unitSkilled Intervention(s): Instruction in [...] April 24, 2018 : 2:15 PM Normal [facility] THERAPY NT HNO ID: [id number]: Yady (Pt) BurtoneService: Physical TherapyAuthomattie Type: Physical TherapistType: Therapy (PT/OT/Speech/Resp)Filed : 04/24/2018 2:15 PMNote Text:Physical Therapy EvaluationSERVICE DATE: 04/24/2018SERVICE TIME: 1320 to 1345ROOM: [id number] Discharge Disposition: HomeAnticipated Discharge Needs: Physical Assist [...] neral symptoms and signs-otherInterventions Provided: Evaluation;Gait Training (64130)$ Evaluation-Low (67090) Billed Units: 1 unitGait Training (34314) Treatment Minutes: 101 unitSkilled Intervention(s): Instruction in [...] Walking and Moving Around Current Status (G8978): ()Mobility: Walking and Moving Around Goal Status [...] details for this therapy evaluation/treatment.SIG NATURE: Yady Kilbane, PT PATIENT NAME: Ruth FernandezTE: April 24, 2018 : 2:13 PM [facility] ANES Callum 04-23-2018 ANES POST HNO ID: [id number]: Jason Finkervice: AnesthesiologyAuthor Type: AnesthesiologistType: Anesthesia PostOpFiled: [...] Remarks:SIGNATURE: Jason Kimble MD PATIENT NAME: Ruth FernandezTE: April 23, 2018 : 4:47 PM PAGER/CONTACT #: [facility] ANES PREOPon 04-23-2018 ANES PREOP HNO ID: [id number]: Jason Zuñigaice: AnesthesiologyAuthomattie Type: AnesthesiologistType: Anesthesia PreOpFiled: 04/23/2018 11:36 AMNote Text:REGIONAL ANESTHESIOLOGY DAY OF SURGERY NOTEPATIENT NAME: Ruth ManciniN: [id number]: 1970Procedure(s) (LRB):LAPAROSCOPIC HAND ASSISTED COLECTOMY SIGMOID (Left)Surgeon(s):Des [...] mouth four times daily.Inpatient medications reviewed in EPIC.I have interviewed and examined the patient. I have reviewed the medicalrecord and/or the pre-anesthesia evaluation, pertinent labs, and testresults.Significant changes in the patient's condition since the History andPhysical, not otherwise documented in primary service progress notes: NoThis contains updated information obtained within 48 hours ofSurgery/Procedure.SIGN ATURE: Jason Kimble MD PATIENT NAME: Ruth FernandezTE: April 23, 2018 : 11:35 AM PAGER/CONTACT #: [facility] BRIEF OP NOTon 04-23-2018 BRIEF OP NOT HNO ID: [id number]: Jason GarciaService: ColorectalAuthor Type: ResidentType: Brief Op NoteFiled: 04/23/2018 2:23 PMNote Text:BRIEF OPERATIVE NOTE - COLORECTAL SURGERYLog ID: [id number]/Procedure Date: 04/23/2018Incision/Proced ure Start Time: 11:21 AMIncision Close/Procedure End Time: 2:15 PMSurgeon(s) and Agricultural Extension Agent(s):Surgeon(s) and Role: * Des Flores - Primary * Jason Garcia - FellowNo Additional StaffProcedures and Anesthesia:Procedure(s) and Anesthesia Type: * LAPAROSCOPIC HAND ASSISTED COLECTOMY SIGMOID - General * SIGMOIDOSCOPY FLEXIBLE - GeneralStoma Type: N/AFindings: laparoscopic hand assisted splenic flexure Resection leftbranch of the middle colic with the left branch of the MRAGO, side to sidecolonic stapled anastomosisEstimated Blood Loss: 50 mlSpecimens: colonDiagnosis Code(s): Pre-Op Diagnosis Codes: * Colon cancer (HCC) [C18.9]Postop Diagnosis: colon polypDrains: NoneWound Classification: Class 2, operative wound clean-contaminated,gastr ointestinal tract entered without significant spillageComplications: NoneSIGNATURE: Jason Garcia MD PATIENT NAME: Ruth SmithDATE: April 23, 2018 : 2:22 PM PAGER/CONTACT #: [phone] [facility] Basic Metabolic Panlon 04-23 Anion gap 3 molar conc 19 mmol/L High 05-01 [facility] Comment on above: Performed By: #### T SCR30 ####[facility] [place], [place] [phone] Calcium mass conc 8.6 mg/dL Normal 8.5-10.5 [facility] Comment on above: Performed By: #### T SCR30 ####[place] [phone] Chloride molar conc 93 mmol/L Low 98-110 [facility] Comment on above: Performed By: #### T SCR30 ####[place] [phone] CO2 molar conc 23 mmol/L Normal 23-32 [facility] Comment on above: Performed By: #### T SCR30 ####[place] [phone] Creatinine mass conc 0.75 mg/dL Normal 0.70-1.40 [facility] Comment on above: Performed By: #### T SCR30 ####[place] [phone] eGFR- Amer. >60 Normal >60 [facility] Comment on above: Performed By: #### T SCR30 ####[place] [phone] GFR/1.73 sq M predicted among non-blacks MDRD vol rate/area (S/P/Bld) mL/min/{1.73_m2} Normal >60 [facility] Comment on above: Performed By: #### T SCR30 ####[phone] Glucose mass conc 242 mg/dL High 65-100 [facility] Comment on above: Performed By: #### T SCR30 ####[place] [phone] Potassium molar conc 3.5 mmol/L Normal 3.5-5.0 [facility] Comment on above: Performed By: #### T SCR30 ####[place] [phone] Sodium molar conc 135 mmol/L Normal 135-146 [facility] Comment on above: Performed By: #### T SCR30 ####[place] [phone] Urea nitrogen mass conc 12 mg/dL Normal 10-25 [facility] Comment on above: Performed By: #### T SCR30 ####[place] [phone] CBC and Differentialon 04-23 Abs Baso <0.03 Normal <0.11 [facility] Comment on above: Performed By: #### T SCR30 ####[place] [phone] Abs Isabella 0.69 k/uL Normal <0.87 [facility] Comment on above: Performed By: #### T SCR30 ####[place] [phone] Abs Neut 8.24 k/uL High 1.45-7.50 [facility] Comment on above: Performed By: #### T SCR30 ####[place] [phone] Basophils/100 WBC Auto (Bld) 0.1 % Normal [facility] Comment on above: Performed By: #### T SCR30 ####[place] [phone] DTYPE Auto Diff Normal [facility] Comment on above: Performed By: #### T SCR30 ####[place] [phone] Eosinophils Auto #/vol (Bld) 10*3/uL Normal <0.46 [facility] Comment on above: Performed By: #### T SCR30 ####[place] [phone] Eosinophils/100 WBC Auto (Bld) 0.0 % Normal [facility] Comment on above: Performed By: #### T SCR30 ####[place] [phone] Erythrocyte distribution width Auto Ratio (RBC) 15.0 % Normal 11.5-15.0 [facility] Comment on above: Performed By: #### T SCR30 ####[place] [phone] Hematocrit Auto Volume Fraction (Bld) 38.1 % Low 39.0-51.0 [facility] Comment on above: Performed By: #### T SCR30 ####[place] [phone] Hemoglobin mass conc (Bld) 12.7 g/dL Low 13.0-17.0 [facility] Comment on above: Performed By: #### T SCR30 ####[place] [phone] Lymphocytes Auto #/vol (Bld) 0.61 10*3/uL Low 1.00-4.00 [facility] Comment on above: Performed By: #### T SCR30 ####[phone] Lymphocytes/100 WBC Auto (Bld) 6.4 % Normal [facility] Comment on above: Performed By: #### T SCR30 ####[phone] MCH Auto Entitic mass (RBC) 28.8 pG Normal 26.0-34.0 [facility] Comment on above: Performed By: #### T SCR30 ####[place] [phone] MCHC Auto mass conc (RBC) 33.3 g/dL Normal 30.5-36.0 [facility] Comment on above: Performed By: #### T SCR30 ####[place] [phone] MCV Auto Entitic volume (RBC) 86.4 fL Normal 80.0-100.0 [facility] Comment on above: Performed By: #### T SCR30 ####[place] [phone] Monocytes/100 WBC Auto (Bld) 7.2 % Normal [facility] Comment on above: Performed By: #### T SCR30 ####[address] [phone] Neutrophils/100 WBC Auto (Bld) 86.3 % Normal [facility] Comment on above: Performed By: #### T SCR30 ####[address] [phone] Platelet mean volume Auto Entitic volume (Bld) <> Normal 9.0-12.7 [facility] Comment on above: Performed By: #### T SCR30 ####[address] [phone] Platelets Auto #/vol (Bld) 77 10*3/uL Low 150-400 [facility] Comment on above: Result Comment: Revtrevor ewedSample checked for a clot. Performed By: #### T SCR30 ####[place] [phone] RBC Auto #/vol (Bld) 4.41 10*6/uL Normal 4.20-6.00 [facility] Comment on above: Performed By: #### T SCR30 ####[address] [phone] WBC Auto #/vol (Bld) 9.55 10*3/uL Normal 3.70-11.00 [facility] Comment on above: Performed By: #### T SCR30 ####[address] [phone] HISTORY PHYSICALon 8 HISTORY PHYSICAL HNO ID: [id number]: Jason Galvez (Res) AbbassService: ColorectalAuthor Type: ResidentType: [...] changes.[facility].SIGNATURE: Jason Garcia MD PATIENT NAME: Ruth SmithDATE: April 23, 2018 : 10:09 AM PAGER: [facility] Magnesiumon 04-23-2018 Magnesium mass conc 1.4 mg/dL Low 1.7-2.6 [facility] Comment on above: Performed By: #### T SCR30 ####[facility] [place], [place] [phone] NURSING PROGon 04-23-2018 Protein mass conc HNO ID: [id number]: Azul HallRn) Eusebio Tobar: (none)Author Type: Registered NurseType: Nursing Progress NoteFiled: 04/23/2018 9:43 PMNote Text: Nursing Progress NotePatient Name: Ruth SmithMRN: [id number] Location: [address] Daily Note: Text page sent to [facility] regarding pt Mg level of 1.4 thisevening. Will await further orders. Safety maintained and call [facility] reach. Will continue to monitor.This note was completed by: Azul Tobar RN [facility] Protein mass conc HNO ID: [id number]: Bentley Salgado) Eusebio Thompson: (none)Author Type: Registered NurseType: Nursing Progress NoteFiled: 04/23/2018 7:17 PMNote Text: Nursing Progress NotePatient Name: Ruth SmithMRN: [id number] [id number]____ Daily Note:04/23/181814- Patient arrived to room 303 from PACU atapproximately 1814, his grandparents are at bedside. Patient is alert andoriented times three, complaining of 10/10 pain and grunting. BANANA RIPENING ROOM SUPERVISOR hasbeen ordered but not started. Called for a BANANA RIPENING ROOM SUPERVISOR pump. Started fluids perorders. Hand grasps and [...] note was completed by: Bentley Thompson RN [facility] Protein mass conc HNO ID: [id number]: Brennen (Rn) Sotero, RNService: NursingAuthor Type: Registered NurseType: Nursing Progress NoteFiled: 04/23/2018 12:13 PMNote Text: Nursing Progress NotePatient Name: Ruth SmithMRN: [id number] Location: [facility] OR POOL/FV OR POOL Daily Note:Patient's family updated at 11:42 am about status of procedureper Dr. Higgins note was completed by: Brennen Bey RN [facility] OPERATIVE NOon 04-23-2018 OPERATIVE NO HNO ID: [id number]: Des Canalesrvice: ColorectalAuthor Type: PhysicianType: Operative ReportFiled: 04/24/2018 9:26 PMNote Text:[facility] - Operative ReportMALIKRUTH HERNANDEZDOB: 1970 AGE: 47 SEX: MMRN: [id number] CSN: [id number] SVC: GENS LOCATION: [id number] PHYSICIAN: Des Flores M.D.DATE OF PROCEDURE: 04/23/2018PREOPERATIVE DIAGNOSIS: T1 colon cancer.POSTOPERATIVE DIAGNOSIS: Same.NAME OF OPERATION: Laparoscopic left hemicolectomy.SURGEON: Des Flores M.D.CONDUCTOR PULLMAN: Vonda Fleming.ANESTHESIA:EBL: 10.IV FLUIDS: Per Anesthesia.INDICATIONS: The [...] colonic ends in close proximityand did a pryw-ht-xsxt anastomosis with the aid of a blue stapler andclosed the common enterotomy with a TA 90 stapler. 0 Vicryl was used atthe crotch of the anastomosis to oversew the TA line.He was then transferred to Recovery in good condition.Des Flores M.D.SurgeryBC:[id number]: 04/23/2018 18:49:02T: 04/24/2018 04:56:25Job #: [id number] [facility] PROGRESSon 04-23-2018 Protein mass conc HNO ID: [id number]: Stoney (Res) Shruthiervice: ColorectalAuthor Type: ResidentType: Progress NotesFiled: 04/23/2018 8:12 PMNote Text: Surgery Post-Op CheckName: Ruth SmithMRN: [id number] 0 s/p laparoscopic hand assisted sigmoid colectomy, with side to sidestapled colorectal anastomosisSUBJECTIVE:-P atient doing well-Pain present, advised on BANANA RIPENING ROOM SUPERVISOR use-Denies fevers, chills, chest pain, shortness of [...] on current regimen.-Continue routine post-op care Stoney Crawford MDPGY-1 General SurgeryPager [phone], Pcqcwtyct 2017, 7:36 PM 6pm to 6 am, and on weekends, please page general surgery on-call [phone] [facility] PT EDon 04-23-2018 PT ED HNO ID: [id number]: Padmini (Rn) DANIA Freitaservice: NursingAuthor Type: Registered NurseType: Patient EducationFiled: 04/23/2018 8:42 AMNote Text:PATIENT EDUCATION TOPIC: PROCEDURE / SURGERY: Pre-op Teaching:ProtocolsPATIEN T NAME: Ruth SmithMRN: [id number] LOCATION: [facility] OR POOL/FV OR POOLREADINESS TO [...] NoneREFERRAL (RECOMMENDATION): NoneElectronically Signed By: Padmini Freitas, [id number]} Normal [facility] Phosphoruson 04-23-2018 Phosphate mass conc 2.5 mg/dL Normal 2.5-4.5 [facility] Comment on above: Performed By: #### T SCR30 ####[facility] [place], [place] [phone] SURGICAL PATHOLOGYon 018 SURGICAL PATHOLOGY [facility] #: [id number] Physician: DES FLORES MD ____FINAL DIAGNOSIS1. Omentum, omentectomy (A) - Benign fibroadipose tissue.2. Left colon, resection (B) - Tattoo ink and focal foreign body giant cellreaction consistent with previous biopsy site, negative for residualinvasive adenocarcinoma (see synoptic report).- One tubular adenoma (see comment).- Thirteen lymph nodes, negative for malignancy (0/13).TRINIDAD/lelo 04/26/20186747VGKMZLI3. The margins are negative for dysplasia.SYNOPTIC REPORT [...] palpated. No masses or nodules are grosslyidentified. Broadcast Systems Engineer sections are submitted in two cassettes.B. Received [...] measuring up to 0.6 cm in greatestdimension. Broadcast Systems Engineer sections are submitted as follows: N0cdjjisgtxttey blue margin first segment of bowel, B2 [...] submitted in relation to perpendicular red margin, M40xdcyavotnafno green margin second segment of bowel, B21 4 cm from bothmargins second segment of bowel, B22 rare adhesions serosal aspect secondsegment of bowel.BF/shabana 04/24/2018 Gross examination performed at [place] [address] of Report: 04/26/2018Date of Procedure: 04/23/2018Date of Receipt: 04/24/2018Submitted by: DES FLORES MDLocation: [id number] interpretation performed at [facility], [address] [place] [address]. Normal [facility] Comment on above: Performed By: #### P ATHS ####[place] [address] Troponin Ton 04-23-2018 Troponin T.cardiac mass conc ug/L Normal 0.000-0.[address] [place] [address] Comment on above: Performed By: #### T SCR30 ####[address] [phone] NURSING PROGon 04-12-2018 Protein mass conc HNO ID: [id number]: Adry (Rn) DANIA Orrervice: NeurosurgeryAuthor Type: Registered NurseType: Nursing Progress NoteFiled: 04/12/2018 2:07 PMNote Text:PACC Nurse Progress NoteHistory AND Physical:PACC Visit Date: 2-18-76Cuiuysyf HANDP Date: N/AED visit Date: N/AOutside HANDP Scanned Date: N/ALabs Within Last 6 Months:BMP/CMP: Date 04-05 scannedImaging Within Last 12 Months:N/ACardiac Testing:EKG in last 12 Months: Yes: Date: 04-06-18, Comment: epicBMI Percentile (PEDS):N/Blakesk Assessment:N/AAnesthesia Review:N/ANarrative:N/AP re-op Considerations:diabeticC knight Check:Stefano Melvin 2017 2:06 PM Normal [facility] Confirm Blood Typeon 018 ABO/RH(D) Positive [facility] Comment on above: Performed By: #### C ONABO ####[address] [phone] Performed By: #### T SCR30 ####[address] [phone] Type and SCR (30D)on 018 Antibody Screen Negative [facility] Comment on above: Performed By: #### T SCR30 ####[address] [phone] HOSPon 03-21-2018 HOSP Patient:Carlo Smith: Height:6' 0 [...] 3.7HEMA* 51.6 % 04/06/2018 51.0 39.0Progress Notes ([facility]):Hannah Zaragoza Psr 04/19/2018 9:08 AM SignedPatient called with pre-operative questions [phone] Garcia, RN, RN 04/19/2018 2:23 PM SignedCall returned. Reviewed prep questions and recovery question with patient.Patient verbalized understanding and will call office with any additionalquestions or concerns.Progress Notes ([facility]):Jun Arriola DO 03/31/2018 5:29 PM SignedPATIENT NAME: Ruth SmithMRN: [id number] PHYSICIAN: Jeff Mandel Jr, DO[address] [address]CEPVLRQ CARE PHYSICIAN: No primary care provider on [...] PNL-ABS GRAN CT + CBC (FOR REMOTE [facility] USE)-HEPATIC FUNCTION PNL-CEA BLD Return in about [...] I answered all questionssatisfactorily. .Ander Arriola D.O.Medical OncologistTrios Health Cancer CarePomerene Hospital SURGICAL PATHOLOGYon 03-13- 018 SURGICAL PATHOLOGY Specimen #: [id number] Physician: MOIRA ELIZONDO M.D. [facility], [place], [place]; [phone] (02/22/2018)1. Cecum, polyp, polypectomy (A) - Tubular [...] hesitate tocontact the GI Consultation Service at [phone] with questions or ifadditional follow up information becomes available. This case was reviewedin conjunction with the GI pathology fellow, Yvonne Santiago M.D., MSc.JRG/CF/lh/03-14-2018Deidra Sterling M.D.(Electronic Signature) SPECIMEN SUBMITTEDA: 6 SLIDES [id number] (A, B) CLINICAL DATAAbdominal pain.Patient ID #: Date of Report: 03/14/2018Date of Procedure: 03/13/2018Date of Receipt: 03/13/2018Submitted by: MOIRA ELIZONDO M.D.Location: Diagnostic interpretation performed at [facility], [address] [place] [address]. Normal [facility] Comment on above: Performed By: #### S ####See report for performing lab information. Vital Signs Date Time Vital Sign Value Performing Clinician Shruthi james 03-24-2025 12:25-0400 Body height 185.4 cm Marc Alves MD Work Phone: [facility] 03-24-2025 12:25-0400 Body mass index (BMI) [Ratio] 30.34 kg/m2 Marc Alves MD Work Phone: [facility] 03-24-2025 12:25-0400 Body weight 104.33 kg Marc Alves MD Work Phone: [facility] 03-24-2025 12:25-0400 Diastolic blood pressure 84 mm[Hg] Marc Alves MD Work Phone: [facility] 03-24-2025 12:25-0400 Heart rate 90 /min Marc Alves MD Work Phone: [facility] 03-24-2025 12:25-0400 Systolic blood pressure 142 mm[Hg] Marc Alves MD Work Phone: [facility] 02-21-2025 14:35-0400 Diastolic blood pressure 91 mm[Hg] Alistair Mcnally MD Work Phone: [facility] 02-21-2025 14:35-0400 Heart rate 98 /min Alistair Mcnally MD Work Phone: [facility] 02-21-2025 14:35-0400 Respiratory rate 16 /min Alistair Mcnally MD Work Phone: [facility] 02-21-2025 14:35-0400 Systolic blood pressure 146 mm[Hg] Alistair Mcnally MD Work Phone: [facility] 02-20-2025 14:40-0400 Body height 185.4 cm Zac Crouch MD Work Phone: [facility] 02-20-2025 14:40-0400 Body mass index (BMI) [Ratio] 31.48 kg/m2 Zac Crouch MD Work Phone: [facility] 02-20-2025 14:40-0400 Body temperature 97.59 [degF] Zac Crouch MD Work Phone: [facility] 02-20-2025 14:40-0400 Body weight 108.2 kg Zac Crouch MD Work Phone: [facility] 02-20-2025 14:40-0400 Diastolic blood pressure 82 mm[Hg] Zac Crouch MD Work Phone: [facility] 02-20-2025 14:40-0400 Heart rate 91 /min Zac Crouch MD Work Phone: [facility] 02-20-2025 14:40-0400 Respiratory rate 16 /min Zac Crouch MD Work Phone: [facility] 02-20-2025 14:40-0400 SaO2% (BldA) [Mass fraction] 100 % Zac Crouch MD Work Phone: [facility] 02-20-2025 14:40-0400 Systolic blood pressure 120 mm[Hg] Zac Crouch MD Work Phone: [facility] 01-15-2025 13:30-0400 Body height 185.4 cm Pm 2 [facility] 01-15-2025 13:30-0400 Body mass index (BMI) [Ratio] 30.34 kg/m2 Pmh 2 [facility] 01-15-2025 13:30-0400 Body weight 104.33 kg Pm 2 [facility] 12-05-2024 13:33-0400 Body height 185.42 cm [facility] 12-05-2024 13:33-0400 Body mass index (BMI) [Ratio] 32.3 kg/m2 [facility] 12-05-2024 13:33-0400 Body weight 111 kg [facility] 12-05-2024 13:33-0400 Diastolic blood pressure 113 mm[Hg] [facility] 12-05-2024 13:33-0400 Heart rate 95 /min [facility] 12-05-2024 13:33-0400 Systolic blood pressure 183 mm[Hg] [facility] 12-04-2024 15:30-0400 Body height 185.4 cm Vivek GASPAR Work Phone: [facility] 12-04-2024 15:30-0400 Body mass index (BMI) [Ratio] 29.42 kg/m2 Vivek GASPAR Work Phone: [facility] 12-04-2024 15:30-0400 Body weight 101.15 kg Vivek GASPAR Work Phone: [facility] 12-04-2024 15:30-0400 Diastolic blood pressure 81 mm[Hg] Vivek GASPAR Work Phone: [facility] 12-04-2024 15:30-0400 Heart rate 108 /min Vivek GASPAR Work Phone: [facility] 12-04-2024 15:30-0400 Systolic blood pressure 131 mm[Hg] Vivek GASPAR Work Phone: [facility] 11-28-2024 15:42-0400 Body mass index (BMI) [Ratio] 30.54 kg/m2 Zac Crouch MD Work Phone: [facility] 11-28-2024 15:42-0400 Body temperature 97.9 [degF] Zac Crouch MD Work Phone: [facility] 11-28-2024 15:42-0400 Body weight 105 kg Zac Crouch MD Work Phone: [facility] 11-28-2024 15:42-0400 Diastolic blood pressure 83 mm[Hg] Zac Crouch MD Work Phone: [facility] 11-28-2024 15:42-0400 Heart rate 91 /min Zac Crouch MD Work Phone: [facility] 11-28-2024 15:42-0400 Respiratory rate 18 /min Zac Crouch MD Work Phone: [facility] 11-28-2024 15:42-0400 SaO2% (BldA) [Mass fraction] 99 % Zac Crouch MD Work Phone: [facility] 11-28-2024 15:42-0400 Systolic blood pressure 143 mm[Hg] Zac Crouch MD Work Phone: [facility] 11-22-2024 13:45-0400 Body height 185.4 cm Abrahan Rinaldi MD Work Phone: [facility] 11-22-2024 13:45-0400 Body mass index (BMI) [Ratio] 29.69 kg/m2 Abrahan Rinaldi MD Work Phone: [facility] 11-22-2024 13:45-0400 Body weight 102.06 kg Abrahan Rinaldi MD Work Phone: [facility] 11-22-2024 13:45-0400 Heart rate 110 /min Abrahan Rinaldi MD Work Phone: [facility] 11-22-2024 13:45-0400 SaO2% (BldA) [Mass fraction] 98 % Abrahan Rinaldi MD Work Phone: [facility] 08-27-2024 06:41-0500 Body height 185.42 cm Francisca Wade MD Work Phone: [facility] 08-27-2024 06:41-0500 Body weight 111.13 kg Francisca Wade MD Work Phone: [facility] 07-25-2024 13:42-0500 Body height 185.4 cm Marcell Kraft MD Work Phone: [facility] 07-25-2024 13:42-0500 Body mass index (BMI) [Ratio] 33.65 kg/m2 Marcell Kraft MD Work Phone: [facility] 07-25-2024 13:42-0500 Body temperature 98.01 [degF] Marcell Kraft MD Work Phone: [facility] 07-25-2024 13:42-0500 Body weight 115.7 kg Marcell Kraft MD Work Phone: [facility] 07-18-2024 10:53-0500 Body height 185.4 cm Marcell Badillo [employer] Work Phone: [facility] 07-18-2024 10:53-0500 Body mass index (BMI) [Ratio] 33.64 kg/m2 Marcell Badillo [employer] Work Phone: [facility] 07-18-2024 10:53-0500 Body weight 115.67 kg Marcell Daviser [employer] Work Phone: [facility] 07-18-2024 10:53-0500 Diastolic blood pressure 98 mm[Hg] Marcell Badillo [employer] Work Phone: [facility] 07-18-2024 10:53-0500 Heart rate 99 /min Marcell Badillo [employer] Work Phone: [facility] 07-18-2024 10:53-0500 Systolic blood pressure 172 mm[Hg] Marcell Badillo [employer] Work Phone: [facility] 06-20-2024 14:22-0500 Body height 185.4 cm Ang Figueroa MD Work Phone: [facility] 06-20-2024 14:22-0500 Body mass index (BMI) [Ratio] 32.98 kg/m2 Ang Figueroa MD Work Phone: [facility] 06-20-2024 14:22-0500 Body temperature 96.8 [degF] Ang Figueroa MD Work Phone: [facility] 06-20-2024 14:22-0500 Body weight 113.4 kg Ang Figueroa MD Work Phone: [facility] 06-05-2024 13:28-0400 Body height 185.42 cm [facility] 06-05-2024 13:28-0400 Body mass index (BMI) [Ratio] 33 kg/m2 [facility] 06-05-2024 13:28-0400 Body weight 113.39 kg [facility] 06-05-2024 13:28-0400 Diastolic blood pressure 94 mm[Hg] [facility] 06-05-2024 13:28-0400 Heart rate 90 /min [facility] 06-05-2024 13:28-0400 Systolic blood pressure 140 mm[Hg] [facility] 04-18-2024 13:24-0400 Body height 185.4 cm Ang Figueroa MD Work Phone: [facility] 04-18-2024 13:24-0400 Body mass index (BMI) [Ratio] 33.39 kg/m2 Ang Figueroa MD Work Phone: [facility] [facility] 04-18-2024 13:24-0400 Body temperature 96.91 [degF] Ang Figueroa MD Work Phone: [facility] 04-18-2024 13:24-0400 Body weight 114.8 kg Ang Figueroa MD Work Phone: [facility] 04-02-2024 12:58-0400 Body height 185.4 cm Eddie Torre [employer] Work Phone: [facility] 04-02-2024 12:58-0400 Body mass index (BMI) [Ratio] 33.38 kg/m2 Eddie Nienberg [employer] Work Phone: [facility] 04-02-2024 12:58-0400 Body weight 114.76 kg Eddie Gustafsonenberg [employer] Work Phone: [facility] 04-02-2024 12:58-0400 Diastolic blood pressure 83 mm[Hg] Eddie Nienberg [employer] Work Phone: [facility] 04-02-2024 12:58-0400 Heart rate 100 /min Eddie Janayenberg [employer] Work Phone: [facility] 04-02-2024 12:58-0400 Respiratory rate 18 /min Eddie Janayenberg [employer] Work Phone: [facility] 04-02-2024 12:58-0400 SaO2% (BldA) [Mass fraction] 98 % Eddie Janayenberg [employer] Work Phone: [facility] 04-02-2024 12:58-0400 Systolic blood pressure 157 mm[Hg] Eddie Gustafsonenberg [employer] Work Phone: [facility] 03-14-2024 13:08-0400 Body height 185.4 cm Rehana Retana PA-C Work Phone: [facility] 03-14-2024 13:08-0400 Body mass index (BMI) [Ratio] 33.25 kg/m2 Rehana Blueo PA-C Work Phone: [facility] 03-14-2024 13:08-0400 Body temperature 97.7 [degF] Rehana Blueo PA-C Work Phone: [facility] 03-14-2024 13:08-0400 Body weight 114.31 kg Rehana Blueo PA-C Work Phone: [facility] 02-28-2024 13:01-0400 Body height 185.42 cm [facility] 02-28-2024 13:01-0400 Body mass index (BMI) [Ratio] 32.5 kg/m2 [facility] 02-28-2024 13:01-0400 Body weight 112.03 kg [facility] 02-22-2024 13:03-0400 Body height 185.4 cm Ang Figueroa MD Work Phone: [facility] 02-22-2024 13:03-0400 Body mass index (BMI) [Ratio] 33.31 kg/m2 Ang Figueroa MD Work Phone: [facility] 02-22-2024 13:03-0400 Body temperature 98.4 [degF] Ang Figueroa MD Work Phone: [facility] 02-22-2024 13:03-0400 Body weight 114.5 kg Ang Figueroa MD Work Phone: [facility] 02-03-2024 08:17-0400 Body temperature 98.29 [degF] Leatha Mcguire MD Work Phone: [facility] 02-03-2024 08:17-0400 Diastolic blood pressure 69 mm[Hg] Leatha Mcguire MD Work Phone: [facility] 02-03-2024 08:17-0400 Heart rate 79 /min Leatha Mcguire MD Work Phone: [facility] 02-03-2024 08:17-0400 Respiratory rate 14 /min Leatha Mcguire MD Work Phone: [facility] 02-03-2024 08:17-0400 SaO2% (BldA) [Mass fraction] 98 % Leatha Mcguire MD Work Phone: [facility] [facility] 02-03-2024 08:17-0400 Systolic blood pressure 127 mm[Hg] Leatha Mcguire MD Work Phone: [facility] [facility] 02-01-2024 00:31-0400 Body mass index (BMI) [Ratio] 32.61 kg/m2 Leatha Mcguire MD Work Phone: [facility] [place] [facility] 02-01-2024 00:31-0400 Body weight 112.1 kg Leatha Mcguire MD Work Phone: [facility] [place] [facility] 01-29-2024 11:12-0400 Body height 185.4 cm Leatha Mcguire MD Work Phone: [facility] [place] [facility] 01-22-2024 15:16-0400 Body temperature 97.7 [degF] Mahammad Imani DO Work Phone: [facility] [place] [facility] 01-22-2024 15:16-0400 Diastolic blood pressure 88 mm[Hg] Mahammad Imani DO Work Phone: [facility] [place] [facility] 01-22-2024 15:16-0400 Heart rate 87 /min Mahammad Imani DO Work Phone: [facility] [place] [facility] 01-22-2024 15:16-0400 Respiratory rate 18 /min Mahammad Imani DO Work Phone: [facility] [place] [facility] 01-22-2024 15:16-0400 SaO2% (BldA) [Mass fraction] 94 % Mahammad Imani DO Work Phone: [facility] [place] [facility] 01-22-2024 15:16-0400 Systolic blood pressure 126 mm[Hg] Yvrosed Imani DO Work Phone: [facility] [facility] 01-21-2024 23:28-0400 Body mass index (BMI) [Ratio] 34.47 kg/m2 Mahammad Imani DO Work Phone: [facility] [place] [facility] 01-21-2024 23:28-0400 Body weight 118.5 kg Mahherrerad Imani DO Work Phone: [facility] 01-18-2024 10:49-0400 Body height 185.4 cm Yvrosed Imani DO Work Phone: [facility] 12-01-2023 10:41-0400 Body height 185.42 cm LUIS Du Work Phone: [facility] 12-01-2023 10:41-0400 Body mass index (BMI) [Ratio] 33.7 kg/m2 LUIS Du Work Phone: [facility] 12-01-2023 10:41-0400 Body weight 116.11 kg LUIS Du Work Phone: [facility] 11-13-2023 09:22-0400 Diastolic blood pressure 101 mm[Hg] LUIS Du Work Phone: [facility] 11-13-2023 09:22-0400 Heart rate 88 /min LUIS Du Work Phone: [facility] 11-13-2023 09:22-0400 Respiratory rate 16 /min LUIS Du Work Phone: [facility] 11-13-2023 09:22-0400 SaO2% (BldA) [Mass fraction] 97 % LUIS Du Work Phone: [facility] 11-13-2023 09:22-0400 Systolic blood pressure 178 mm[Hg] LUIS Du Work Phone: [facility] 11-13-2023 09:16-0400 Body height 185.42 cm PA-C Jd Du Work Phone: [facility] 11-13-2023 09:16-0400 Body weight 117.93 kg PA-C Jd Du Work Phone: [facility] 11-01-2023 14:35-0400 Body temperature 97.8 [degF] PA-C Jd Du Work Phone: [facility] 11-01-2023 14:35-0400 Diastolic blood pressure 88 mm[Hg] PA-C Jd Du Work Phone: [facility] 11-01-2023 14:35-0400 Heart rate 100 /min PA-C Jd Du Work Phone: [facility] 11-01-2023 14:35-0400 Respiratory rate 16 /min PA-C Jd Du Work Phone: [facility] 11-01-2023 14:35-0400 SaO2% (BldA) [Mass fraction] 96 % PA-C Jd Du Work Phone: [facility] 11-01-2023 14:35-0400 Systolic blood pressure 170 mm[Hg] PA-C Jd Du Work Phone: [facility] 11-01-2023 11:29-0400 Body height 185.42 cm PA-C Jd Du Work Phone: [facility] 11-01-2023 11:29-0400 Body weight 118 kg PA-C Jd Du Work Phone: [facility] 08-10-2023 14:45-0500 Body height 185.42 cm PA-C Jd Du Work Phone: [facility] 08-10-2023 14:45-0500 Body weight 117.93 kg PA-C Jd Du Work Phone: [facility] 08-10-2023 14:45-0500 Diastolic blood pressure 96 mm[Hg] PA-C Jd Du Work Phone: [facility] 08-10-2023 14:45-0500 Systolic blood pressure 149 mm[Hg] PA-C Jd Du Work Phone: [facility] 04-24-2023 11:02-0400 Diastolic blood pressure 98 mm[Hg] PA-C Jd Du Work Phone: [facility] 04-24-2023 11:02-0400 Heart rate 78 /min PA-C Jd Du Work Phone: [facility] 04-24-2023 11:02-0400 Respiratory rate 18 /min PA-C Jd Du Work Phone: [facility] 04-24-2023 11:02-0400 SaO2% (BldA) [Mass fraction] 98 % PA-C Jd Du Work Phone: [facility] 04-24-2023 11:02-0400 Systolic blood pressure 141 mm[Hg] PA-C Jd Du Work Phone: [facility] 04-24-2023 10:55-0400 Body height 185.42 cm PA-C Jd Du Work Phone: [facility] 04-24-2023 10:55-0400 Body weight 114.3 kg PA-C Jd Du Work Phone: [facility] 03-21-2023 13:56-0400 Diastolic blood pressure 89 mm[Hg] PA-C Jd Du Work Phone: [facility] 03-21-2023 13:56-0400 Heart rate 82 /min PA-C Jd Du Work Phone: [facility] 03-21-2023 13:56-0400 Respiratory rate 14 /min PA-C Jd Du Work Phone: [facility] 03-21-2023 13:56-0400 SaO2% (BldA) [Mass fraction] 95 % PA-C Jd Du Work Phone: [facility] 03-21-2023 13:56-0400 Systolic blood pressure 129 mm[Hg] LUIS Du Work Phone: [facility] 03-21-2023 12:23-0400 Body height 185.42 cm LUIS Du Work Phone: [facility] 03-21-2023 12:23-0400 Body temperature 98.2 [degF] LUIS Du Work Phone: [facility] 03-21-2023 12:23-0400 Body weight 115.66 kg LUIS Du Work Phone: [facility] 03-01-2023 15:15-0400 Body height Guillermo Thornton Other [employer] Other 03-01-2023 15:15-0400 Body mass index (BMI) [Ratio] 32.98 kg/m2 Guillermo Thornton Other [employer] Other 03-01-2023 15:15-0400 Body weight 113.4 kg Guillermo Thornton Other [employer] Other 03-01-2023 15:15-0400 Diastolic blood pressure 107 mm[Hg] Guillermo Thornton Other [employer] Other 03-01-2023 15:15-0400 Systolic blood pressure 145 mm[Hg] Guillermo Thornton Other [employer] Other 08-24-2022 12:00-0500 Body height Sugar Knight Other [employer] Other 08-24-2022 12:00-0500 Body mass index (BMI) [Ratio] 33.69 kg/m2 Sugar Knight Other [employer] Other 08-24-2022 12:00-0500 Body weight 115.85 kg Sugar Knight Other [employer] Other 08-24-2022 12:00-0500 Diastolic blood pressure 108 mm[Hg] Sugar Knight Other [employer] Other 08-24-2022 12:00-0500 Respiratory rate 20 /min Sugar Knight Other [employer] Other 08-24-2022 12:00-0500 SaO2% (BldA) [Mass fraction] 98 % Sugar Knight Other [employer] Other 08-24-2022 12:00-0500 Systolic blood pressure 176 mm[Hg] Sugar Knight Other [employer] Other 08-03-2022 12:34-0500 Diastolic blood pressure 86 mm[Hg] LUIS Du Work Phone: [facility] 08-03-2022 12:34-0500 Heart rate 81 /min LUIS Du Work Phone: [facility] 08-03-2022 12:34-0500 Respiratory rate 20 /min LUIS Du Work Phone: [facility] 08-03-2022 12:34-0500 SaO2% (BldA) [Mass fraction] 95 % LUIS Du Work Phone: [facility] 08-03-2022 12:34-0500 Systolic blood pressure 134 mm[Hg] LUIS Du Work Phone: [facility] 08-03-2022 11:51-0500 Inhaled oxygen flow rate 3 L/min LUIS Du Work Phone: [facility] 08-03-2022 10:54-0500 Body height 185.42 cm LUIS Du Work Phone: [facility] 08-03-2022 10:54-0500 Body weight 117.93 kg LUIS Du Work Phone: [facility] 07-28-2022 10:30-0500 Body height Sugar Knight Other [employer] Other 07-28-2022 10:30-0500 Body mass index (BMI) [Ratio] 34.96 kg/m2 Sugar Knight Other [employer] Other 07-28-2022 10:30-0500 Body weight 120.2 kg Sugar Knight Other [employer] Other 07-28-2022 10:30-0500 Diastolic blood pressure 100 mm[Hg] Sugar Knight Other [employer] Other 07-28-2022 10:30-0500 Systolic blood pressure 150 mm[Hg] Sugar Knight Other [employer] Other 06-01-2022 12:42-0400 Diastolic blood pressure 93 mm[Hg] LUIS Du Work Phone: [facility] 06-01-2022 12:42-0400 Heart rate 93 /min LUIS Du Work Phone: [facility] 06-01-2022 12:42-0400 Respiratory rate 20 /min LUIS Du Work Phone: [facility] 06-01-2022 12:42-0400 SaO2% (BldA) [Mass fraction] 94 % LUIS Du Work Phone: [facility] 06-01-2022 12:42-0400 Systolic blood pressure 156 mm[Hg] LUIS Du Work Phone: [facility] 06-01-2022 12:07-0400 Inhaled oxygen flow rate 3 L/min LUIS Du Work Phone: [facility] 06-01-2022 11:17-0400 Body height 185.42 cm LUIS Du Work Phone: [facility] 06-01-2022 11:17-0400 Body weight 117.93 kg LUIS Du Work Phone: [facility] 04-27-2022 17:45-0400 Body height Asa Moeller Other [employer] [facility] [employer] Other 04-27-2022 17:45-0400 Body mass index (BMI) [Ratio] 34.72 kg/m2 Asa Moeller Other [employer] Other 04-27-2022 17:45-0400 Body weight 119.39 kg Asa Moeller Other [employer] Other 04-27-2022 17:45-0400 SaO2% (BldA) [Mass fraction] 96 % Asa Moeller Other [employer] Other 04-15-2022 14:08-0400 Diastolic blood pressure 99 mm[Hg] LUIS Du Work Phone: [facility] 04-15-2022 14:08-0400 Heart rate 82 /min LUIS Du Work Phone: [facility] 04-15-2022 14:08-0400 Respiratory rate 20 /min LUIS Du Work Phone: [facility] 04-15-2022 14:08-0400 SaO2% (BldA) [Mass fraction] 96 % LUIS Du Work Phone: [facility] 04-15-2022 14:08-0400 Systolic blood pressure 170 mm[Hg] LUIS Du Work Phone: [facility] 04-15-2022 14:06-0400 Body height 185.42 cm LUIS Du Work Phone: [facility] 04-15-2022 14:06-0400 Body weight 117.02 kg LUIS Du Work Phone: [facility] 03-31-2022 16:00-0400 Body height Asa Moeller Other [employer] [facility] [employer] Other 03-31-2022 16:00-0400 Body mass index (BMI) [Ratio] 34.43 kg/m2 Asa Moeller Other [employer] Other 03-31-2022 16:00-0400 Body weight 118.39 kg Asa Moeller Other [employer] Other 03-31-2022 16:00-0400 SaO2% (BldA) [Mass fraction] 98 % Asa Moeller Other [employer] Other 12-20-2021 16:15-0400 Body height Bird Slade Other [employer] Other 12-20-2021 16:15-0400 Body mass index (BMI) [Ratio] 34.56 kg/m2 Bird Slade Other [employer] Other 12-20-2021 16:15-0400 Body weight 118.84 kg Bird Slade Other [employer] Other 08-25-2021 16:15-0500 Body height Jeff Mandel Other [employer] Other 08-25-2021 16:15-0500 Body mass index (BMI) [Ratio] 34.56 kg/m2 Jeff Mandel Other [employer] Other 08-25-2021 16:15-0500 Body weight 118.84 kg Jeff Mandel Other [employer] Other 08-23-2021 16:30-0500 Body height Bird Slade Other [employer] Other 08-23-2021 16:30-0500 Body mass index (BMI) [Ratio] 34.56 kg/m2 Bird Slade Other [employer] Other 08-23-2021 16:30-0500 Body weight 118.84 kg Bird Slade Other [employer] Other Encounters Encounter Date Encounter Type Care Provider Facility Start: 04-01-2025 End: 04-01-2025 Telemedicine consultation with patient Alistair Mcnally MD Work Phone: Pain Management Start: 04-01-2025 End: 04-01-2025 ambulatory Alistair Mcnally MD Work Phone: Pain Management Comment on above: Radiculopathy, lumba r region (Primary Dx); Diabetic peripheral neuropathy (HCC); History of total right hip replacement; H/O lumbar discectomy; Polyneuropathy Start: 03-24-2025 End: 03-24-2025 Office outpatient visit 15 minutes Marc Alves MD Work Phone: [facility] Comment on above: Difficulty urinating (Primary Dx) Start: 03-24-2025 End: 03-24-2025 Social Work Ashley Lema [facility] Hematology/Oncology Start: 03-20-2025 ambulatory VIVEK GILLIS [facility] Start: 03-19-2025 End: 03-19-2025 ambulatory NOHEMY RAMIREZ Facility:[facility] Start: 02-21-2025 End: 02-21-2025 Office outpatient visit 25 minutes Alistair Mcnally MD Work Phone: Pain Management Comment on above: Radiculopathy, lumba r region; Diabetic peripheral neuropathy (HCC); Thrombocytopenia; History of total right hip replacement; H/O lumbar discectomy; Polyneuropathy Start: 02-21-2025 End: 02-21-2025 Social Work Ashley Lema [employer] Hematology/Oncology Start: 02-20-2025 End: 02-20-2025 ambulatory FRANCISCA JACKSONEEL Facility:[facility] Start: 02-20-2025 End: 02-20-2025 Office outpatient visit 15 minutes Zac Crouch MD Work Phone: Hematology/Oncology Comment on above: Thrombocytopenia (Pr imary Dx); Malignant neoplasm of colon, unspecified part of colon (HCC); Elevated carcinoembryonic antigen (CEA) Start: 01-29-2025 End: 01-29-2025 Telephone encounter Marc Alves MD Work Phone: [facility] Start: 01-29-2025 End: 01-29-2025 Evaluation and management of inpatient MARC ALVES [facility] Start: 01-15-2025 End: 01-15-2025 Patient encounter procedure [facility] Pre-Admission Testing 2 [facility] - Pre Admit Comment on above: Preop examination (P rimary Dx); Hypertension, unspecified type; Type 2 diabetes mellitus with other circulatory complication, with long-term current use of insulin ([facility]) Start: 01-15-2025 End: 01-15-2025 Preprocedural examination done [facility] 2 [facility] Start: 01-15-2025 End: 01-15-2025 ambulatory JEFF BARRETT [facility] Start: 01-15-2025 Encounter for other preprocedural examination EDDIE TORRE [facility] Start: 01-13-2025 End: 01-13-2025 Telemedicine consultation with patient Alistair Mcnally MD Work Phone: Pain Management Start: 01-13-2025 End: 01-13-2025 ambulatory Alistair Mcnally MD Work Phone: Pain Management Comment on above: Radiculopathy, lumba r region (Primary Dx); Diabetic peripheral neuropathy (HCC); Thrombocytopenia; History of total right hip replacement; H/O lumbar discectomy; Chronic pain syndrome Start: 12-30-2024 End: 12-30-2024 ambulatory Francisca Mauro Facility:[facility] Start: 12-26-2024 End: 12-26-2024 ambulatory Komal Hernadez APRN.[employer] Work Phone: Pain Management Comment on above: Questionnaire Submis deejay Start: 12-26-2024 End: 12-26-2024 E-mail encounter from caregiver Komal Hernadez APRN.[employer] Work Phone: Pain Management Start: 12-18-2024 End: 12-20-2024 Telephone encounter Abrahan Rinaldi MD Work Phone: Pain Management Comment on above: Pain Procedure Respo nse & follow up (Right L5-S1 Transforaminal Epidural Steroid injection # 1) Start: 12-16-2024 End: 12-16-2024 ambulatory ABRAHAN RINALDI Facility:[facility] Start: 12-12-2024 End: 12-12-2024 Patient encounter procedure Francisca Wade MD Work Phone: [facility] Work Phone: Start: 12-12-2024 End: 12-12-2024 ambulatory Francisca Wade MD Work Phone: [facility] Work Phone: Start: 12-05-2024 End: 12-05-2024 ambulatory [facility] Work Phone: Start: 12-05-2024 End: 12-05-2024 Patient encounter procedure [facility] Work Phone: Start: 12-04-2024 End: 12-04-2024 Office outpatient new 45 minutes Vivek GASPAR Work Phone: [facility] Comment on above: Benign prostatic hyp erplasia, unspecified whether lower urinary tract symptoms present (Primary Dx); Difficulty urinating Start: 12-04-2024 End: 12-04-2024 [facility] VIVEK GILLIS [facility] Start: 12-02-2024 End: 12-02-2024 Telephone encounter Abrahan Rinaldi MD Work Phone: Ambulatory Surgery Comment on above: Schedule Injection Start: 11-28-2024 End: 11-28-2024 Office outpatient new 45 minutes Zac Crouch MD Work Phone: Hematology/Oncology Comment on above: Malignant neoplasm o f colon, unspecified part of colon (HCC) (Primary Dx); Thrombocytopenia Start: 11-28-2024 End: 11-28-2024 ambulatory ABRAHAN RINALDI Facility:[facility] Start: 11-25-2024 End: 11-25-2024 Telephone encounter Zac Crouch MD Work Phone: Hematology/Oncology Start: 11-22-2024 End: 11-22-2024 ambulatory ABRAHAN RINALDI Facility:[facility] Start: 11-22-2024 End: 11-22-2024 Patient encounter procedure [...] 11-12-2024 End: 11-12-2024 Emergency department patient visit [facility] Start: 11-08-2024 End: 11-08-2024 ambulatory JD DU Facility:[facility] Start: 11-08-2024 End: 11-08-2024 Telemedicine consultation with patient Martha Faulkner [employer] Work Phone: Telemedicine Comment on above: Acute right-sided lo w back pain with right-sided sciatica (Primary Dx) Start: 11-04-2024 End: 11-04-2024 ambulatory Winston Owens MD Facility:[facility] Start: 11-03-2024 End: 11-03-2024 Emergency department patient visit [facility] Start: 09-23-2024 End: 09-23-2024 ambulatory Winston Owens MD Facility:[facility] Start: 09-17-2024 End: 09-17-2024 Telephone encounter Hannah Gantai [facility] Start: 09-04-2024 End: 09-04-2024 Refill Marcell Badillo APRN-[employer]NAGER [employer] [facility] Comment on above: Lumbar radiculopathy , chronic Lumbar radiculopathy , chronic (Primary Dx); History of lumbar surgery; Lumbar spondylosis; Bilateral hand pain Start: 08-28-2024 End: 08-28-2024 Refill Marcell Badillo [employer] Work [facility] Comment on above: Lumbar radiculopathy , chronic Start: 08-27-2024 End: 08-27-2024 Patient encounter procedure Francisca Wade MD Work Phone: [facility] Work Phone: Start: 08-27-2024 End: 08-27-2024 ambulatory Francisca Wade MD Work Phone: [facility] Work Phone: Start: 08-21-2024 End: 08-21-2024 Refill Marcell Badillo [employer] Work Phone: [facility] Comment on above: Lumbar radiculopathy , chronic Start: 08-13-2024 End: 08-15-2024 Refill Marcell Badillo [employer] Work Phone: [facility] Comment on above: Lumbar radiculopathy , chronic Start: 08-05-2024 End: 08-05-2024 Bamboo flowsheet Erick Naylor DO Work Phone: [facility] Start: 08-05-2024 End: 08-05-2024 Bamboo flowsheet Erick Naylor DO Work Phone: [facility] Start: 08-05-2024 End: 08-08-2024 Patient encounter procedure Erick Naylor DO Work Phone: [facility] Comment on above: Paresthesia (Primary Dx) Lumbar radiculopathy , chronic Start: 08-05-2024 End: 08-05-2024 ambulatory ERICK NAYLOR Not Available Start: 07-25-2024 End: 07-25-2024 Office outpatient visit 25 minutes Marcell Kraft MD Work Phone: [facility] Comment on above: Trochanteric bursiti s of right hip (Primary Dx) Start: 07-25-2024 End: 07-25-2024 ambulatory [facility] Start: 07-24-2024 End: 07-24-2024 Refill Laura HAWK [facility] Comment on above: Lumbar radiculopathy , chronic Start: 07-18-2024 End: 07-18-2024 Office outpatient new 60 minutes Marcell Badillo [employer] Work Phone: [facility] Comment on above: Lumbar radiculopathy , chronic (Primary Dx); Left cervical radiculopathy; Bilateral hand pain; Bilateral hand numbness; Lumbar spondylosis; Cervical spondylosis; Chronic midline low back pain without sciatica; History of lumbar surgery; Anxiety Start: 07-18-2024 End: 07-18-2024 ambulatory [facility] Start: 07-16-2024 End: 07-16-2024 ambulatory [facility] Start: 07-09-2024 End: 07-09-2024 Orders Only Connie Corbin RN [facility] Comment on above: Closed displaced int ertrochanteric fracture of right femur with routine healing, subsequent encounter (Primary Dx) Start: 07-02-2024 End: 07-02-2024 [facility] Comment on above: Back pain, unspecifi ed back location, unspecified back pain laterality, unspecified chronicity (Primary Dx) Start: 06-20-2024 End: 06-20-2024 Office outpatient visit 25 minutes Ang Figueroa MD Work [facility] Comment on above: Right knee pain, uns pecified chronicity (Primary Dx) Start: 06-20-2024 End: 06-20-2024 ambulatory ANG [facility] Start: 06-17-2024 End: 06-17-2024 Orders Only Connie Corbin [facility] Comment on above: Right knee pain, uns pecified chronicity (Primary Dx) Start: 06-07-2024 End: 06-07-2024 Emergency department patient visit [facility] Start: 06-05-2024 End: 06-05-2024 ambulatory [facility] Work Phone: Start: 06-05-2024 End: 06-05-2024 Patient encounter procedure [facility] Work Phone: Start: 06-03-2024 End: 06-03-2024 ambulatory [facility] Start: 05-07-2024 End: 05-08-2024 Emergency department patient visit BRENNEN MICHELLE [facility] Start: 05-07-2024 End: 05-07-2024 Emergency department patient visit DIANE MCGRATH [facility] Start: 04-18-2024 End: 04-18-2024 Postop follow up visit related to original px Ang Figueroa MD Work Phone: [facility] Comment on above: Closed displaced int ertrochanteric fracture of right femur with routine healing, subsequent encounter (Primary Dx) Start: 04-18-2024 End: 04-18-2024 ambulatory TOM Raymond [facility] Start: 04-04-2024 End: 04-09-2024 Telephone encounter Lorena Red RN [facility] Start: 04-02-2024 End: 04-02-2024 Office outpatient visit 25 minutes [facility] [employer] Work Phone: [facility] Comment on above: Disorder of sacrum ( Primary Dx) Start: 04-02-2024 End: 04-02-2024 ambulatory EDDIE [facility] Start: 03-18-2024 End: 03-18-2024 Orders Only Tom Marquez PA-C Work Phone: [facility]Trauma [facility] Adult Reconstruction Comment on above: Closed fracture of r ight hip, initial encounter ([facility] Start: 03-14-2024 End: 03-14-2024 Postop follow up visit related to original px Rehana GASPAR-C [facility] Phone: [facility] Comment on above: Closed displaced int ertrochanteric fracture of right femur with routine healing, subsequent encounter (Primary Dx); Trochanteric bursitis of right hip Start: 03-14-2024 End: 03-14-2024 ambulatory ANG FIGUEROA [facility] Start: 03-07-2024 End: 03-07-2024 Megha Davis MD Work Phone: [facility] Start: 02-28-2024 End: 02-28-2024 ambulatory [facility] Work Phone: Start: 02-28-2024 End: 02-28-2024 Patient encounter procedure [facility] Work Phone: Start: 02-26-2024 End: 02-26-2024 Orders Only Tom Marquez PA-C Work Phone: [facility]/Trauma and Adult Reconstruction Comment on above: Closed fracture of r ight hip, initial encounter ([facility]) Start: 02-23-2024 End: 02-23-2024 Orders Only Tom Marquez PA-C Work Phone: [facility]/Trauma and Adult Reconstruction Comment on above: Closed fracture of r ight hip, initial encounter ([facility]) Start: 02-22-2024 End: 02-22-2024 ambulatory TOM N [facility] Start: 02-22-2024 End: 02-22-2024 ambulatory [facility] Comment on above: Periprosthetic fract ure of hip, subsequent encounter (Primary Dx) Start: 02-22-2024 End: 02-22-2024 Postop follow up visit related to original px Ang Figueroa MD Work Phone: [facility]/Trauma and Adult Reconstruction Comment on above: Localized swelling o f right lower extremity (Primary Dx); Periprosthetic fracture of hip, subsequent encounter Start: 02-19-2024 End: 02-19-2024 Orders Only Tom Marquez PA-C Work Phone: [facility]/Trauma and Adult Reconstruction Comment on above: Closed fracture of r ight hip, initial encounter ([facility]) Start: 02-12-2024 End: 02-12-2024 Orders Only Any GASPAR [facility] Start: 02-09-2024 End: 02-09-2024 Megha Davis MD Work Phone: [facility] Start: 02-09-2024 End: 02-10-2024 Evaluation and management of inpatient TOM MARQUEZ [facility] Start: 02-06-2024 End: 02-06-2024 ambulatory LEATHA MCGUIRE [facility] Start: 02-03-2024 End: 02-09-2024 Evaluation and management of inpatient [facility] Start: 01-30-2024 End: 01-30-2024 ambulatory [facility] Start: 01-29-2024 End: 02-03-2024 Evaluation and management of inpatient [place] [facility] Comment on above: Closed fracture of r ight hip, initial encounter ([facility]) (Primary Dx); Periprosthetic fracture of hip, sequela; Periprosthetic fracture of hip, subsequent encounter Start: 01-29-2024 End: 01-29-2024 Office outpatient visit 40 minutes Jalen Gan MD Work Phone: [facility]/Trauma and Adult Reconstruction Comment on above: Closed displaced int ertrochanteric fracture of right femur, sequela (Primary Dx); Closed displaced subtrochanteric fracture of right femur, initial encounter ([facility]) Start: 01-29-2024 End: 02-09-2024 ambulatory JD Mendez [facility] Start: 01-27-2024 End: 01-30-2024 Evaluation and management of inpatient CORTES Kilo SANDOVAL [facility] Start: 01-27-2024 End: 01-30-2024 Evaluation and management of inpatient TONG HARDING [facility] Start: 01-23-2024 End: 01-23-2024 ambulatory JD Mendez [facility] Start: 01-22-2024 End: 01-29-2024 Evaluation and management of inpatient [facility] Start: 01-18-2024 End: 01-18-2024 ambulatory MÓNICA PORTILLO [facility] Start: 01-17-2024 End: 01-17-2024 Orders Only Connie Corbin RN [facility]/Trauma and Adult Reconstruction Comment on above: Closed displaced int ertrochanteric fracture of right femur with routine healing, subsequent encounter (Primary Dx) Start: 01-17-2024 End: 01-23-2024 Emergency department patient visit EDIE ARREOLA [facility] Start: 01-17-2024 Encounter for other preprocedural examination GEOFFREY MCKEE [facility] Start: 01-17-2024 End: 01-22-2024 Evaluation and management of inpatient JD DU [facility] Comment on above: Closed fracture of r ight hip, initial encounter ([facility]) (Primary Dx) Start: 01-09-2024 End: 01-09-2024 ambulatory DIONTE FREEMAN Not Available Start: 01-02-2024 End: 01-02-2024 ambulatory CHEY ROMANO Not Available Start: 12-12-2023 End: 12-12-2023 ambulatory DIONTE FREEMAN Not Available Start: 12-01-2023 End: 12-01-2023 ambulatory LUIS Du Work Phone: [facility] Work Phone: Start: 12-01-2023 End: 12-01-2023 Patient encounter procedure LUIS Du Work Phone: [facility] Work Phone: Start: 11-13-2023 End: 11-13-2023 ambulatory LUIS Du Work Phone: [facility] Work Phone: Start: 11-13-2023 End: 11-13-2023 Patient encounter procedure LUIS Du Work Phone: [facility] [place] Work Phone: Start: 11-01-2023 End: 11-01-2023 Emergency department patient visit LUIS Du Work Phone: [facility] Work Phone: Start: 09-13-2023 End: 09-13-2023 ambulatory Guillermo Thornton Other [employer] Other Start: 09-13-2023 Telephone encounter [facility]ill[facility] Start: 08-29-2023 End: 08-29-2023 ambulatory Guillermo Thornton Other [employer] Other Start: 08-29-2023 Telephone encounter [facility] Start: 08-21-2023 End: 08-21-2023 ambulatory LUIS Du Work Phone: [facility] Work Phone: Start: 08-21-2023 End: 08-21-2023 Patient encounter procedure LUIS Du Work Phone: [facility] [place] Work Phone: Start: 08-10-2023 End: 08-10-2023 ambulatory Guillermo Thornton Other [facility] [employer] Other Start: 08-10-2023 Telephone encounter Guillermo [facility] Start: 08-10-2023 End: 08-10-2023 Patient encounter procedure LUIS Du Work Phone: [facility] Work Phone: Start: 06-23-2023 End: 06-23-2023 Patient encounter procedure LUIS Du Work Phone: [facility] [place] Work Phone: Start: 06-12-2023 End: 06-12-2023 ambulatory Guillermo Thornton Other [employer] Other Start: 06-12-2023 Telephone encounter [facility]illermo [facility] Start: 05-16-2023 End: 05-16-2023 ambulatory LUIS Du Work Phone: [facility] Work Phone: Start: 05-16-2023 End: 05-16-2023 Patient encounter procedure LUIS Du Work Phone: [facility] Work Phone: Start: 05-02-2023 End: 05-02-2023 ambulatory Guillermo Thornton Other [employer] Other Start: 05-02-2023 Telephone encounter Guillermo Sampson [facility] Start: 04-24-2023 End: 04-24-2023 ambulatory LUIS Du Work Phone: [facility] Work Phone: Start: 04-24-2023 End: 04-24-2023 Patient encounter procedure LUIS Du Work Phone: [facility] [place] Work Phone: Start: 03-28-2023 End: 03-28-2023 ambulatory Guillermo Thornton Other [employer] Other Start: 03-28-2023 Telephone encounter Guillermo [facility]pson [facility] Start: 03-21-2023 End: 03-21-2023 Admission to same day surgery center LUIS Du Work Phone: [facility] Work Phone: Start: 03-21-2023 End: 03-21-2023 ambulatory LUIS Du Work Phone: [facility] Work Phone: Start: 03-01-2023 End: 03-01-2023 ambulatory Guillermo Thornton Other [employer] Other Start: 03-01-2023 Patient encounter procedure Guillermo Thornton [facility] Start: 02-08-2023 End: 02-08-2023 ambulatory Guillermo Thornton Other [employer] Other Start: 02-08-2023 Telephone encounter Guillermo ASENCIO [facility] Start: 11-30-2022 End: 11-30-2022 ambulatory Angelo Grande Other [employer] Other Start: 11-30-2022 Telephone encounter Angelo Grande [facility] Start: 10-20-2022 End: 10-20-2022 ambulatory Guillermo Thornton Other [employer] Other Start: 10-20-2022 Telephone encounter Guillermo ASENCIO [facility] Start: 09-01-2022 End: 09-01-2022 ambulatory Guillermo Thornton Other [employer] Other Start: 09-01-2022 Telephone encounter Guillermo ASENCIO [facility] Start: 08-31-2022 End: 08-31-2022 ambulatory Asa Moeller Other [employer] Other Start: 08-31-2022 Telephone encounter Asa Moeller [facility] Start: 08-24-2022 End: 08-24-2022 ambulatory Sugar Knight Other [employer] Other Start: 08-24-2022 Office outpatient vi sit 25 minutes Sugar Knight [facility] Start: 08-19-2022 End: 08-19-2022 ambulatory Asa Moeller Other [employer] Other Start: 08-19-2022 Office outpatient vi sit 15 minutes Asa Sajan [facility] Start: 08-16-2022 End: 08-16-2022 ambulatory Asa Sajan Other [employer] Other Start: 08-16-2022 Telephone encounter Asa Moeller [facility] Start: 08-11-2022 End: 08-11-2022 ambulatory Guillermo Thornton Other [employer] Other Start: 08-11-2022 Telephone encounter Guillermo [facility] Start: 08-03-2022 (Procedure) Sierra Moeller [facility] Start: 08-03-2022 End: 08-03-2022 Admission to same day surgery center LUIS Du Work Phone: [facility] Start: 08-03-2022 End: 08-03-2022 ambulatory LUIS Du Work Phone: [facility] Work Phone: Start: 07-28-2022 End: 07-28-2022 ambulatory Sugar Knight Other [employer] [facility] [employer] Other Start: 07-28-2022 Office outpatient vi sit 25 minutes Sugar Knight [facility] Start: 07-19-2022 End: 07-19-2022 ambulatory Guillermo Thornton Other [employer] Other Start: 07-19-2022 Telephone encounter Guillermo [facility] Start: 06-28-2022 End: 06-28-2022 ambulatory Sugar Knight Other [employer] Other Start: 06-28-2022 Office outpatient vi sit 25 minutes Sugar Knight [facility] Start: 06-01-2022 (Procedure) Sierra Moeller [facility] Start: 06-01-2022 End: 06-01-2022 Admission to same day surgery center LUIS Du [facility] Start: 06-01-2022 End: 06-01-2022 ambulatory LUIS Du Work Phone: [facility] Work Phone: Start: 05-24-2022 End: 05-24-2022 ambulatory Asa Moeller Other [employer] Other Start: 05-24-2022 Office outpatient vi sit 15 minutes Asa Sajan [facility] Start: 05-17-2022 End: 05-17-2022 ambulatory Yung Figueroa Other [employer] Other Start: 05-17-2022 Telephone encounter Yung Butts [facility] Start: 04-27-2022 End: 04-27-2022 ambulatory Asasachin Moeller Other [employer] Other Start: 04-27-2022 Office outpatient vi sit 25 minutes Asa Sajan [facility] Start: 04-15-2022 End: 04-15-2022 Patient encounter procedure LUIS Du Work Phone: [facility] [place] Start: 03-31-2022 End: 03-31-2022 ambulatory Asa Moeller Other [employer] Other Start: 03-31-2022 Office outpatient ne w 45 minutes Asa Sajan [facility] Start: 03-01-2022 End: 03-01-2022 ambulatory Jeff Mandel Other [employer] Other Start: 03-01-2022 Telephone encounter Jeff Mandel [facility] Start: 02-17-2022 End: 02-17-2022 ambulatory Jeff Mandel Other [employer] Other Start: 02-17-2022 Telephone encounter Jeff Mandel [facility] Start: 12-23-2021 End: 12-23-2021 ambulatory Jeff Mandel Other [facility] Other Start: 12-23-2021 Telephone encounter Jeff Mandel [facility] Start: 12-20-2021 End: 12-20-2021 ambulatory Bird Slade Other [facility] [employer] Other Start: 12-20-2021 Office outpatient vi sit 15 minutes Bird Slade [facility] Start: 12-15-2021 End: 12-15-2021 ambulatory Jeff Mandel Other [facility] [employer] Other Start: 12-15-2021 Telephone encounter Jeff Mandel [facility] Start: 09-30-2021 End: 09-30-2021 ambulatory Jfef Mandel Other [facility] Other Start: 09-30-2021 Telephone encounter Jeff Mandel [facility] Start: 09-20-2021 End: 09-20-2021 ambulatory Jeff Mandel Other [facility] Other Start: 09-20-2021 Telephone encounter Jeff Mandel [facility] Start: 09-17-2021 End: 09-17-2021 ambulatory Jeff Mandel Other [facility] Other Start: 09-17-2021 Telephone encounter Jeff Mandel [facility] Start: 09-01-2021 End: 09-01-2021 ambulatory Bird Slade Other [facility] Other Start: 09-01-2021 Telephone encounter Bird Slade [facility] Neuro[facility] Start: 08-25-2021 End: 08-25-2021 ambulatory Jeff Ministerio Other [facility] [employer] Other Start: 08-25-2021 Office outpatient vi sit 25 minutes Jeff Jonykes [facility] Start: 08-23-2021 End: 08-23-2021 ambulatory Jeff Mandel Other [facility] [employer] Other Start: 08-23-2021 Office outpatient ne w 30 minutes Bird Slade [facility] Neurosurgery Start: 08-23-2021 Telephone encounter Jeff Mandel [facility] Gastroenter[facility] Start: 10-28-2020 End: 10-28-2020 Patient encounter procedure Jd Du -Pre-Surgical Testing Start: 05-13-2020 End: 05-14-2020 Patient encounter procedure [facility] Facility: Start: 04-23-2018 End: 04-27-2018 Evaluation and management of inpatient DES ARNOLDO [facility] Procedures Date Procedure Procedure Detail Performing Clinician Start: 03-24-2025 Follow-up visit Follow-up MARC ALVES Start: 12-12-2024 Ultrasonography of abdomen Francisca Wade MD Work Phone: Start: 12-04-2024 MEASURE POST VOID RESIDUAL Vivek Mcduffie rphy PA Work Phone: Start: 08-27-2024 MRI of [...] metabolic panel calcium total Albe rt Q Frazier MD Work Phone: Start: 01-30-2024 Gluc [...] use Jeff Martin MD Work Phone: Start: 06-08-2024 Basic metabolic panel calcium total Sand eep [...] eep S Brielle WILSON Work Phone: Start: 01-18-2024 Gluc [...] in Work Phone: Start: 03-21-2023 Esophagogastroduodenoscopy LUIS villarin Work Phone: Start: 08-03-2022 Injection of local [...] Treatment Date Care Activity Detail Author Start: 03-20-2030 Prostate specific antigen measurement Prostate Cancer Screening Discussion [facility] Start: 03-24-2026 Adult BMI Screening Adult BMI Screening [facility] Start: 03-24-2026 Tobacco Screening Tobacco Screening [facility] Start: 01-29-2026 Adult BMI Screening Adult BMI Screening [facility] Start: 01-29-2026 Tobacco Screening Tobacco Screening [facility] Start: 01-15-2026 Adult BMI Screening Adult BMI Screening [facility] Start: 01-15-2026 Tobacco Screening Tobacco Screening [facility] Start: 12-04-2025 Adult BMI Screening Adult BMI Screening [facility] Start: 12-04-2025 Tobacco Screening Tobacco Screening [facility] Start: 08-02-2025 Tobacco Counseling Tobacco Counseling [facility] Start: 07-25-2025 Adult BMI Screening Adult BMI Screening [facility] Start: 07-25-2025 Tobacco Screening Tobacco Screening [facility] Start: 07-18-2025 Adult BMI Follow Up Plan Adult BMI Follow Up Plan [facility] Start: 07-18-2025 Adult BMI Screening Adult BMI Screening [facility] Start: 07-18-2025 Tobacco Screening Tobacco Screening [facility] Start: 06-20-2025 Adult BMI Screening Adult BMI Screening [facility] Start: 06-20-2025 Tobacco Screening Tobacco Screening [facility] Start: 06-07-2025 Adult BMI Screening Adult BMI Screening [facility] Start: 06-07-2025 Tobacco Screening Tobacco Screening [facility] Start: 05-26-2025 End: 05-26-2025 Patient encounter procedure 05/26/2025 3:15 PM EDT Office Visit [facility] [address] [place] [id number] [place] [address] [place] [address] [facility] Start: 05-02-2025 End: 05-02-2025 ambulatory 05/02/2025 1:00 PM EDT [facility] [address] [place], [place] [id number] Nohemy Ramirez, PRISCILLA [address] [place] [address] No comment Pain Recovery Comment on above: No comment Start: 04-28-2025 End: 04-28-2025 Patient encounter procedure 04/28/2025 2:45 PM EDT Appointment [facility] [address] [phone] [facility] Start: 04-18-2025 Adult BMI Screening Adult BMI Screening [facility] Start: 04-18-2025 Tobacco Screening Tobacco Screening [facility] Start: 04-14-2025 Influenza vaccination [facility] Start: 04-02-2025 Adult BMI Screening Adult BMI Screening [facility] Start: 04-02-2025 Tobacco Screening Tobacco Screening [facility] Start: 04-01-2025 End: 04-01-2025 ambulatory 04/01/2025 4:00 PM EDT [facility] [address] [place] [address] Alistair Mcnally MD [address] [place] [address] [facility] Comment on above: [facility] Start: 03-19-2025 End: 03-19-2025 ambulatory 03/19/2025 10:00 AM EDT [facility] [address] [place] [address] Nohemy Ramirez PSYD [address] [place] [address] Back,leg,and neck pain Pain Recovery Comment on above: Back,leg,and neck pain Start: 03-14-2025 Adult BMI Screening Adult BMI Screening [facility] Start: 03-14-2025 Tobacco Screening Tobacco Screening [facility] Start: 03-13-2025 End: 03-13-2025 Patient encounter procedure 03/13/2025 1:00 PM EDT Office Visit [facility] Recovery [address] [place] [address] Nohemy Ramirez PSYD [address] [place] [place] [address] Pain in back,legs, and neck. Pain Recovery Comment on above: Pain in back,legs, and neck. Start: 02-21-2025 End: 02-21-2025 Patient encounter procedure 02/21/2025 2:15 PM EDT Office Visit Pain Management [address] [place] [address] Alistair Mcnally MD [address] [place] [address] Office Pain Management Comment on above: Office Start: 02-21-2025 Adult BMI Screening Adult BMI Screening [facility] Start: 02-20-2025 End: 02-20-2025 Follow-up encounter 02/20/2025 2:30 PM EDT Visit (SP) Office Hematology/Oncology [address] [place] [address] Zac Crouch MD [address] [place] [address] 3 month follow up Hematology/Oncology Comment on above: 3 month follow up Start: 02-20-2025 End: 02-20-2025 Patient encounter procedure 02/20/2025 2:15 PM EDT Office Visit [facility] [address] [place] [address] [place] [address] 3 month follow up [facility] Comment on above: 3 month follow up Start: 02-20-2025 End: 05-22-2025 Carcinoembryonic Ag [Mass/volume] in Serum or Plasma [facility] Work Phone: Comment on above: Expected: 02/20/2025, Expires: Start: 02-08-2025 Adult BMI Screening Adult BMI Screening [facility] Start: 02-02-2025 Depression Screening Depression Screening [facility] Start: 02-02-2025 Tobacco Screening Tobacco Screening [facility] Start: 01-29-2025 End: 01-29-2025 Admission to same day surgery center 01/29/2025 8:30 AM EDT - 01/29/2025 9:15 AM EDT Surgery [facility] [address] [place] [address] Marc Alves MD [address] [place] [id number] CYSTOSCOPY [80844 (CPT )] [facility] Comment on above: CYSTOSCOPY [13083 (CPT )] Start: 01-29-2025 End: 01-29-2025 Anesthesia consultation 01/29/2025 8:30 AM EDT Anesthesia Event [facility] [address] [id number] Jamal Chambers, DO [address] [facility] [place] [facility] [place] [address] [facility] Start: 01-29-2025 End: 01-29-2025 Cystourethroscopy [facility] Start: 01-29-2025 Subsequent hospital visit by physician 01/29/2025 8:30 AM EDT Hospital Encounter [facility] [address] [place] [id number] Marc Alves MD [address] [place] [address] [facility] Start: 01-28-2025 Adult BMI Screening Adult BMI Screening [facility] Start: 01-21-2025 Depression Screening Depression Screening [facility] Start: 01-21-2025 Tobacco Screening Tobacco Screening [facility] Start: 01-16-2025 Adult BMI Screening Adult BMI Screening [facility] Start: 01-16-2025 Tobacco Screening Tobacco Screening [facility] Start: 01-03-2025 End: 01-03-2025 ambulatory 01/03/2025 2:00 PM EDT [facility] [address] [place] [address] Komal Hernadez, [employer] [address] [place] [address] RTC aftre CELINA/ONC appt Pain Management Comment on above: RTC aftre CELINA/ONC appt Start: 01-03-2025 End: 01-03-2025 Patient encounter procedure 01/03/2025 2:00 PM EDT Office Visit Pain Management [address] [place] [address] Komal Hernadez, [employer] [address] [facility] [address] RTC aftre CELINA/ONC appt Pain Management Comment on above: RTC aftre CELINA/ONC appt Start: 12-16-2024 End: 12-16-2024 Admission to same day surgery center 12/16/2024 9:43 AM EDT - 12/16/2024 10:11 AM EDT Surgery Ambulatory Surgery [address] [place] [address] Abrahan Rinaldi MD [address] [facility] [place] [address] INJECTION(S) STEROID TRANSFORAMINAL EPIDURAL LUMBAR W/IMAGE GUIDANCE [...] peripheral neuropathy (HCC) 12/16/2024 9:43 AM EDT [facility] Start: 12-16-2024 Subsequent hospital visit by physician 12/16/2024 9:43 AM EDT Hospital Encounter Ambulatory Surgery [address] [facility] [place] [address] Abrahan Rinaldi MD [address] [facility] [place] [address] Radicular syndrome of right leg [M54.10], History of lumbar laminectomy [Z98.890], Diabetic peripheral neuropathy (HCC) [E11.42] Ambulatory Surgery Comment on above: Radicular syndrome of right leg [M54.10] , History of lumbar laminectomy [Z98.890], Diabetic peripheral neuropathy (HCC) [E11.42] Start: 11-28-2024 End: 11-28-2024 ambulatory 11/28/2024 4:00 PM EDT Visit (SP) Office Hematology/Oncology [address] [place] [address] [place] [address] Zac Crouch MD [address] [facility] [place] [address] Abrahan Rinaldi DX: Thrombocytopenia [D69.6] Hematology/Oncology Comment on above: Ref by Dr Abrahan Rinaldi DX: Thromboc ytopenia [D69.6] Start: 11-28-2024 End: 02-27-2025 COPPER BLOOD [facility] Work Phone: Comment on above: Expected: 11/28/2024, Expires: Start: 11-28-2024 End: 02-27-2025 Zinc [Mass/volume] in Serum or Plasma [facility] Comment on above: Expected: 11/28/2024, Expires: Start: 11-26-2024 End: 11-26-2024 ambulatory 11/26/2024 4:00 PM EDT Visit (SP) Office Hematology/Oncology [address] [place] [address] [place] [address] Zac Crouch MD [address] [place] [address] [place] [address] Abrahan Rinaldi DX: Thrombocytopenia [D69.6] Hematology/Oncology Comment on above: Ref by Dr Abrahan Rinaldi DX: Thromboc ytopenia [D69.6] Start: 11-22-2024 End: 11-22-2024 Patient encounter procedure 11/22/2024 2:00 PM EDT Office Visit Pain Management [address] [place], [place] [id number] Abrahan Rinaldi MD [address] [place] [address] Acute right-sided low back pain with right-sided sciatica [M54.41] Pain Management Comment on above: Acute right-sided low back pain with rig ht-sided sciatica [M54.41] Start: 09-19-2024 End: 09-19-2024 Patient encounter procedure 09/19/2024 12:00 PM EST Office Visit [facility] [address] [place] [phone] Dionte Torre PA [address] [place] [address] [facility] Start: 08-05-2024 End: 08-05-2024 Patient encounter procedure 08/05/2024 2:00 PM EST Procedure Visit [facility] [address] [phone] Erick Naylor DO [address] [place] [address] [facility] Comment on above: Arrived Start: 07-25-2024 End: 07-25-2024 Patient encounter procedure [facility] Start: 07-19-2024 Hemoglobin A1c measurement HbA1C [facility] Start: 07-18-2024 End: 07-18-2025 MR [...] Phone: Comment on above: Expected: 07/02/2024, Expires: 5 Start: 06-20-2024 End: 06-20-2024 Patient encounter procedure 06/20/2024 2:15 PM EST Office Visit [facility] [address] [place] [phone] Ang Figueroa MD [facility] [address] [place], [place] [phone] [facility] Start: [...] [facility] [address] [place] [phone] Ang Figueroa MD [facility] [address] [place], [place] [phone] [facility] Start: 04-14-2024 COVID-19 Vaccine ( season) COVID-19 Vaccine ( season) [facility] Start: 04-14-2024 COVID-19 Vaccine ( season) COVID-19 Vaccine () [facility] Start: 04-14-[address] [facility] Start: 03-14-2024 End: 03-14-2025 XR Pelvis and [...] [facility] [address] [place] [phone] Ang Figueroa MD [address] [place] [address] [facility] Start: 02-22-2024 End: 02-21-2025 XR Femur - right 2 Views [facility] Work Phone: Comment on above: Ordered: 02/22/2024 Expected: 02/22/2024 , Expires: 02/21/2025 Start: 02-22-2024 End: 02-22-2024 Patient encounter procedure [facility] Start: 02-12-2024 End: 02-12-2024 Patient encounter procedure 02/12/2024 8:15 AM EDT Office Visit [facility] [address] [place] [phone] Ang Figueroa MD [email or web address] [place], [place] [phone] [facility] Start: 02-01-2024 End: 02-01-2024 Patient encounter procedure 02/01/2024 9:30 AM EDT Office Visit [facility] [address] [place] [phone] Agn Figueroa MD [address] [place] [address] [facility] Start: 01-31-2024 End: 01-31-2024 Patient encounter procedure 01/31/2024 9:45 AM EDT Office Visit [facility] [address] [place] [phone] Chey Lanza MD [address] [place] [address] [facility] Start: 01-29-2024 End: 01-29-2024 Evaluation and management of inpatient [facility] IP Rehab Occupational Therapy Comment on above: Arrived Start: 01-29-2024 End: 01-29-2024 Evaluation and management of inpatient [facility] - Inpatient Rehab Physical Therapy Comment on above: Arrived Start: 01-18-2024 End: 01-18-2024 Admission to same day surgery center 01/18/2024 12:45 PM EDT - 01/18/2024 2:45 PM EDT Surgery [facility] Surgery [address] [place] [phone] Chey Lanza MD [address] [place] [address] INSERTION INTRAMEDULLARY NAIL FEMUR-TFNA HIP FX [facility] Surgery Comment on above: INSERTION INTRAMEDULLARY NAIL FEMUR-TFNA HIP FX Start: 01-18-2024 End: 01-18-2024 INSERTION INTRAMEDULLARY NAIL FEMUR INSERTION INTRAMEDULLARY NAIL FEMUR Closed displaced intertrochanteric fracture of right femur, initial encounter ([facility] 01/18/2024 12:45 PM EDT [facility] Start: 01-18-2024 Subsequent hospital visit by physician 01/18/2024 12:45 PM EDT Hospital Encounter [facility] [address] [place] [place] [phone] Chey Lanza MD [address] [place] [address] [facility] Start: 01-17-2024 End: 01-16-2025 XR Pelvis and Hip - right 2 Views X-ray hip right 2-3 views with or without pelvis Imaging Routine Closed displaced intertrochanteric fracture of right femur with routine healing, subsequent encounter Expected: 01/17/2024, Expires: 01/16/2025 [facility] Work Phone: Comment on above: Expected: 01/17/2024, Expires: Start: 12-01-2023 Patient referral [facility] Work Phone: Start: 2023 Prostate specific antigen measurement Prostate Cancer Screening Discussion [facility] Start: 05-16-2023 [facility] Start: 04-14-2023 COVID-19 Vaccine ( season) COVID-19 Vaccine ( season) [facility] Start: 03-21-2023 End: 03-21-2023 [facility] Start: 08-03-2022 [facility] Start: 06-01-2022 [facility] Start: 2018 Administration of varicella zoster vaccine Zoster (Shingles) Vaccine (1 of 2) [facility] Start: 2018 Shingrix Vaccine (1 of 2) Shingrix Vaccine (1 of 2) [facility] Start: 2013 Prostate specific antigen measurement Prostate Cancer Screening Discussion [facility] Start: 2013 Screening for malignant neoplasm of colon [facility] Start: 11-12-2012 Medicare Annual Wellness Visit Medicare Annual Wellness Visit [facility] Start: 1987 DTaP,Tdap and Td Vaccines (1 - Tdap) DTaP,Tdap and Td Vaccines (1 - Tdap) [facility] Start: 1987 Hepatitis B Vaccine (1 of 3 - 19+ 3-dose series) Hepatitis B Vaccine (1 of 3 - 19+ 3-dose series) [facility] Start: 1987 Pneumococcal Vaccine: 50+ (1 of 2 - PCV) Pneumococcal Vaccine: 50+ (1 of 2 - PCV) [facility] Start: 1987 Urine microalbumin profile DTaP,Tdap,Td Vaccine (1 - Tdap) [facility] Start: 1986 Adult BMI Follow Up Plan Adult BMI Follow Up Plan [facility] Start: 1986 Annual PCP Team Chronic Disease Visit Annual PCP Team Chronic Disease Visit [facility] Start: 1986 Anxiety Screening Anxiety Screening [facility] Start: 1986 BP Controlled (<130/80) BP Controlled (<130/80) [facility] Start: 1986 Depression Screening Depression Screening [facility] Start: 1986 Diabetic foot examination Diabetic Foot Exam [facility] Start: 1986 Hepatitis B surface antibody level LDL Cholesterol [facility] Start: 1986 HIV screening HIV Screening [facility] Start: 1980 Depression Screening Depression Screening [facility] Start: 1978 Diabetic foot examination Diabetic Foot Exam [facility] Start: 1978 Glaucoma screening Dilated Retinal Exam [facility] Start: 1978 Hepatitis B screening Urine Albumin:Creatinine Ratio [facility] Start: 1968 Glaucoma screening Diabetic Ophthalmology Exam [facility] Start: 1968 Medicare Annual Wellness (AWV) Medicare Annual Wellness (AWV) [facility] Start: 1968 Screening for malignant neoplasm of colon [facility] Start: 1968 Tobacco Counseling Tobacco Counseling [facility] Start: 1968 Urine screening for protein Urine Microalbumin [facility] End: 02-04-2024 Basic metabolic 2000 panel - Serum or Plasma Basic Metabolic Panel Lab Routine Lab max of 3 days, Daily, for lab use only for 3 Days starting 02/02/2024 until 02/04/2024, 2 completed [facility] Comment on above: Lab max of 3 days, Daily, for lab use on ly for 3 Days starting 02/02/2024 until 02/04/2024, 2 completed Bedside Glucose *Place/Obtain serum glucose if >500(>600 MRH) per glucometer. Bedside Glucose *Place/Obtain serum glucose if >500(>600 MRH) per glucometer. Point of Care Testing Routine 4X Daily (AC and at bedtime) until discontinued starting 01/29/2024, 15 completed [facility] Comment on above: 4X Daily (AC and at bedtime) until disco ntinued starting 01/29/2024, 15 completed Bedside Glucose *Place/Obtain serum glucose if >500(>600 MRH) per glucometer. Bedside Glucose *Place/Obtain serum glucose if >500(>600 MRH) per glucometer. Point of Care Testing Routine 4X Daily (AC and at bedtime) until discontinued starting 02/03/2024 [facility] Comment on above: 4X Daily (AC and at bedtime) until disco ntinued starting 02/03/2024 End: 02-04-2024 CBC W Auto Differential panel - Blood CBC auto differential Lab Routine Lab max of 3 days, Daily, for lab use only for 3 Days starting 02/02/2024 until 02/04/2024, 2 completed [facility] Work Phone: Comment on above: Lab max of 3 days, Daily, for lab use on ly for 3 Days starting 02/02/2024 until 02/04/2024, 2 completed Comprehensive metabo lic 2000 panel - Serum or Plasma [facility] End: 07-18-2025 EMG With NCV EMG With NCV Neurology Routine Left cervical radiculopathy Bilateral hand pain Bilateral hand numbness Cervical spondylosis 1 Occurrences starting 07/18/2024 until 07/18/2025 [facility] Comment on above: 1 Occurrences starting 07/18/2024 until 07/18/2025 End: 01-13-2026 EMG(NEURO/NI) EMG(NEURO/NI) EMG Routine Radiculopathy, lumbar region History of total right hip replacement H/O lumbar discectomy 1 Occurrences starting 01/13/2025 until 01/13/2026 [facility] Work Phone: Comment on above: 1 Occurrences starting 01/13/2025 until 01/13/2026 Hepatitis C virus Ig G Ab [Presence] in Serum or Plasma by Immunoassay [facility] Inject si joint arthrgrphy&/anes/steroid w/margo INJECTION BLOCK SACROILIAC JOINT Disorder of sacrum [facility] [facility] Njx anes&/strd w/img tfrml edrl lmbr/sac 1 lvl INJECTION(S) STEROID TRANSFORAMINAL EPIDURAL LUMBAR W/IMAGE GUIDANCE FLUORO OR CT Radiculopathy, lumbar region [facility] Oxygen Therapy - Maintain SpO2: 90%; *[facility] REMOVER Guidelines for O2: Yes; Document: [email or web address]\epi c\EPIC_Reference\Orders\ Respiratory Care Guidelines\CPG Oxygen 2022.pdf Oxygen Therapy - Maintain SpO2: 90%; *VARNISH REMOVER Guidelines for O2: Yes; Document: \[email or web address]\epi c\EPIC_Reference\Orders\ Respiratory Care Guidelines\CPG Oxygen 3.pdf Respiratory Care Routine As Needed until discontinued starting 01/29/2024 [facility] Work Phone: Comment on above: As Needed until discontinued starting Oxygen Therapy - Maintain SpO2: 90%; *VARNISH REMOVER Guidelines for O2: Yes; Document: \[email or web address]\epi c\EPIC_Reference\Orders\ Respiratory Care Guidelines\CPG Oxygen 3.pdf Oxygen Therapy - Maintain SpO2: 90%; *VARNISH REMOVER Guidelines for O2: Yes; Document: \[email or web address]\epi c\EPIC_Reference\Orders\ Respiratory Care Guidelines\CPG Oxygen 3.pdf Respiratory Care Routine As Needed until discontinued starting 01/30/2024 [facility] Work Phone: Comment on above: As Needed until discontinued starting Patient Education [facility] Work Phone: Patient referral [facility] Work Phone: End: 12-04-2025 Prostatic specific antigen, diagnostic Prostatic specific antigen, diagnostic Lab Routine Benign prostatic hyperplasia, unspecified whether lower urinary tract symptoms present 1 Occurrences starting 12/04/2024 until 12/04/2025 [facility] Work Phone: Comment on above: 1 Occurrences starting 12/04/2024 until 12/04/2025 End: 01-29-2024 Type and screen(includes indirect yolanda) Type and screen(includes indirect yolanda) Blood Bank Routine Once for 1 Occurrences starting 01/29/2024 until 01/29/[address] [facility] on above: Once for 1 Occurrences starting 01/29/20 24 until 01/29/2024 US Abdomen limited [facility] US.doppler Lower extremity vein - right Vas venous duplex lwr single right Vascular Ultrasound STAT Localized swelling of right lower extremity 02/22/2024 2:[address] [facility] Immunizations Immunization Date Immunization Notes Care Provider Fa cility NEGATED: Highlighted row has not occurred!04-25-2018 influenza, injectable, quadrivalent, preservative free Martha Faulkner APRN.[employer] Work Phone: [facility] Comment on above: Deferred: Patient Re fused - wants to wait Payers Date Payer Category Payer Self-pay [id number] 2017 Medicaid [id number] 2017 Unknown [id number] 2012 Medicare [id number] 2012 Medicare [id number] 1968 Unknown [id number] 2.16.84 0.1.000247.3.579.2.593 1968 Unknown [id number] 2.16.8 40.1.391557.3.579.2.1286 1968 Unknown [id number] 2.16.8 40.1.627364.3.579.2.1285 1968 Unknown [id number] 2.16.8 40.1.047777.3.579.2.1285 1968 Unknown [id number] 2.16.8 40.1.060692.3.579.2.1285 1968 Unknown [id number] 2.16.8 40.1.956579.3.579.2.1285 1968 Unknown [id number] .16.8 40.1.718884.3.579.2.1285 1968 Unknown [id number] .16.8 40.1.429570.3.579.2.1285 1968 Unknown [id number] .16.8 40.1.087169.3.579.2.1285 1968 Unknown [id number] .16.8 40.1.117978.3.579.2.1285 1968 Unknown [id number] 2.16.8 40.1.358266.3.579.2.1285 1968 Unknown [id number] .16.8 40.1.166915.3.579.2.1285 1968 Unknown [id number] .16.8 40.1.941452.3.579.2.1285 1968 Unknown [id number] .16.8 40.1.451934.3.579.2.1285 1968 Unknown [id number] .16.8 40.1.048634.3.579.2.1285 1968 Unknown [id number] .16.8 40.1.717971.3.579.2.1285 1968 Unknown [id number] .16.8 40.1.538929.3.579.2.1285 1968 Unknown [id number] .16.8 40.1.187915.3.579.2.1285 1968 Unknown [id number] 2.16.8 40.1.349273.3.579.2.1285 1968 Unknown [id number] 2.16.8 40.1.995225.3.579.2.1285 1968 Unknown [id number] 2.16.8 40.1.628906.3.579.2.1285 1968 Unknown [id number] 2.16.8 40.1.894587.3.579.2.1285 1968 Unknown [id number] 2.16.8 40.1.653562.3.579.2.1285 1968 Unknown [id number] 2.16.8 40.1.322893.3.579.2.1285 1968 Unknown [id number] 2.16.8 40.1.528635.3.579.2.1285 1968 Unknown [id number] 2.16.8 40.1.318546.3.579.2.1285 1968 Unknown [id number] 2.16.8 40.1.595977.3.579.2.1285 1968 Unknown [id number] 2.16.84 0.1.711930.3.579.2.1258 1968 Unknown [id number] 2.16.84 0.1.955156.3.579.2.1258 1968 Unknown [id number] 2.16.84 0.1.401950.3.579.2.9 1968 Unknown [id number] 2.16.84 0.1.823414.3.579.2.9 1968 Unknown [id number] 2.16.84 0.1.351423.3.579.2.1258 1968 Unknown [id number] 2.16. 840.1.388965.3.579.2.196 1968 Unknown [id number] 2.16. 840.1.892037.3.579.2.196 1968 Unknown [id number] 2.16. 840.1.878389.3.579.2.1285 1968 Unknown [id number] 2.16. 840.1.004772.3.579.2.1285 1968 Unknown [id number] 2.16. 840.1.642174.3.579.2.1285 1968 Unknown [id number] 2.16. 840.1.063927.3.579.2.1285 1968 Unknown [id number] 2.16. 840.1.053775.3.579.2.1285 1968 Unknown [id number] 2.16. 840.1.370088.3.579.2.1285 1968 Unknown [id number] 2.16. 840.1.258718.3.579.2.1285 1968 Unknown [id number] 2.16.8 40.1.046555.3.579.2.1285 1968 Unknown [id number] 2.16.8 40.1.828000.3.579.2.1285 1968 Unknown [id number] 2.16.8 40.1.078749.3.579.2.1285 1968 Unknown [id number] 2.16.8 40.1.984005.3.579.2.1285 1968 Unknown [id number] 2.16.8 40.1.681963.3.579.2.1285 1968 Unknown [id number] 2.16.8 40.1.624215.3.579.2.1285 1968 Unknown [id number] 2.16.8 40.1.732803.3.579.2.1285 1968 Unknown [id number] 2.16. 840.1.548198.3.579.2.1285 1968 Unknown [id number] 2.16. 840.1.096805.3.579.2.1286 1968 Unknown [id number] 2.16. 840.1.460869.3.579.2.1286 1968 Unknown [id number] 2.16.8 40.1.305928.3.579.2.1286 1968 Unknown [id number] 2.16.8 40.1.502394.3.579.2.1286 1959 Medicare [id number] Unknown [id number] Unknown [id number] 2.16.8 40.1.001507.3.579.2.531 Unknown [id number] 2.16.8 40.1.463161.3.579.2.531 Unknown [id number] 2.16.8 40.1.283130.3.579.2.531 Social History Date Type Detail Facility Start: 10-14-2020 End: 02-21-2025 Tobacco smoking status MOIS Ex-smoker (finding) [facility] Start: 1970 Sex Assigned At Male [facility] Start: 01-09-2024 End: 11-22-2024 Sex Assigned At [facility] Start: 10-30-2020 End: 03-21-2023 Tobacco smoking status MOIS Current some day smoker [facility] Start: 11-01-2023 End: 02-28-2024 Tobacco smoking status NHIS Smoker (finding) [facility] Start: 12-06-1989 End: 01-15-2025 Tobacco smoking status MOIS Smokes tobacco daily [facility] Start: 12-06-1989 End: 08-21-2014 History of tobacco use Cigarette Smoker [facility] Start: 12-12-2023 End: 02-21-2025 Tobacco use and exposure Smokeless tobacco non-user [facility] Start: 01-09-2024 End: 03-24-2025 Alcoholic beverage intake Ex-drinker (finding) [facility] Start: 01-09-2024 End: 11-22-2024 History of Social function [facility] Start: 08-11-2021 Gender identity Identifies as male gender (finding) [facility] Start: 08-11-2021 Sexual orientation Heterosexual (cecille lewis) [facility] Has the [employer], or [employer] threatened to shut off services in your home in past 12Mo No [facility] Are you now , , , , never or living with a partner? Never [facility] How often to you hav e a drink containing alcohol? Never [facility] Start: 03-06-2018 How many standard drinks containing alcohol do you have on a typical day? Patient does not drink [facility] Do you feel stress - tense, restless, nervous, or anxious, or unable to sleep at night because your mind is troubled all the time - these days [OSQ] To some extent [facility] Start: 08-09-2016 End: 12-13-2024 Sex Male (finding) [facility] Start: 01-17-2024 End: 02-21-2025 Alcoholic beverage intake Current non-drinker of alcohol (finding) [facility] Are you now , , , , never or living with a partner? [facility] Do you feel stress - tense, restless, nervous, or anxious, or unable to sleep at night because your mind is troubled all the time - these days [OSQ] Not at all [facility] Medical Equipment Procedure Code Equipment Code Equipment Origin al Text Equipment Identifier Dates Repair, hernia, inguinal, with mesh FDA Start: 06-14-2019 Repair, hernia, inguinal, with mesh [id number] FDA Start: 06-14-2019 Repair, hernia, inguinal, with mesh [id number] FDA Start: 06-14-2019 Repair, hernia, inguinal, with mesh [id number] FDA Start: 06-14-2019 Repair, hernia, inguinal, with mesh [id number] FDA Start: 06-14-2019 Repair, hernia, inguinal, with mesh [id number] FDA Start: 06-14-2019 Repair, hernia, inguinal, with mesh [id number] FDA Start: 06-14-2019 Repair, hernia, inguinal, with mesh [id number] FDA Start: 06-14-2019 Repair, hernia, inguinal, with mesh [id number] FDA Start: 06-14-2019 Repair, hernia, inguinal, with mesh [id number] FDA Start: 06-14-2019 Repair, hernia, inguinal, with mesh [id number] FDA Start: 06-14-2019 Repair, hernia, inguinal, with mesh [id number] FDA Start: 06-14-2019 Repair, hernia, inguinal, with mesh [id number] FDA Start: 06-14-2019 Repair, hernia, inguinal, with mesh [id number] FDA Start: 06-14-2019 Repair, hernia, inguinal, with mesh [id number] FDA Start: 06-14-2019 Repair, hernia, inguinal, with mesh [id number] FDA Start: 06-14-2019 Abdominal hernia surgical mesh, composite-polymer [id number] FDA Start: 05-13-2019 [id number] Start: 09-14-2018 Cable Orth Lcp 7 50mm Ss 1.7mm Crmp Ns - [id number] Start: 01-30-2024 Mesh [id number] Pp Pcl Macroporous Parietene Ds 2.4mm Comp Abs Rpl [id number] - [id number] - [id number] Start: 10-27-2021 Nail Im 170mm 12 mm 125d Cnn Tfn-Adv Lat Rlf Cut Ti Niobium - [id number] Start: 01-18-2024 Nail Im 440mm 12 mm 125d Cnn Tfn-Adv Lat Rlf Cut Ti Niobium - [id number] Start: 01-30-2024 Screw Bn 95mm 10 .35mm Cnn Ti Al Niobium Tfn-Adv 3.5mm Strl - [id number] Start: 01-18-2024 Screw Bn 38mm 5m m Lck X25 Im Nl - [id number] Start: 01-18-2024 Screw Bn 95mm 10 .35mm Cnn Ti Al Niobium Tfn-Adv 3.5mm Strl - [id number] Start: 01-30-2024 Screw Bn 58mm 5m m Lck X25 Im Nl - [id number] Start: 01-30-2024 Screw Bn 44mm 5m m Lck X25 Nl - [id number] Start: 01-30-2024 Goals Date Patient Goal Desired Activity /State Personal health goal Comment on above: Formatting of this n ote might be different from the original. Evaluation of progress towards goal: Participating in therapy Personal health goal Comment on above: Formatting of this n ote might be different from the original. Evaluation of progress towards goal: pt plans to return to [facility] Personal health goal Comment on above: Formatting [...] 04/27/2018 4:56 PM Brennen Tucker RN No [facility] 04-27-2018 Are you blind, or do you have serious difficulty seeing, even when wearing glasses No 04/27/2018 4:56 PM Brennen Tucker RN No [facility] 04-27-2018 Do you have serious difficulty walking or climbing stairs No 04/27/2018 4:56 PM Brennen Tucker RN No [facility] 04-27-2018 Do you have difficul ty dressing or bathing No 04/27/2018 4:56 PM Brennen Tucker RN No [facility] 04-27-2018 Because of a physica l, mental, or emotional condition, do you have difficulty doing errands alone such as visiting a physician's office or shopping No 04/27/2018 4:56 PM Brennen Tucker RN No [facility] Mental Status Date Assessment Result Facility 04-27-2018 Because of a physica l, mental, or emotional condition, do you have serious difficulty concentrating, remembering, or making decisions No 04/27/2018 4:56 PM EDT Brennen Ramsey RN No [facility] Clinical Notes 08-23-2021 to 04-01-2025 Alistair Mcnally MD - 04/01/2025 4:00 PM EDTTelephone Encounter - Charles Dudley RN - 03/24/2025 4:17 PM EDTTelephone Encounter - Charles Dudley RN - 03/24/2025 4:17 PM EDTPatient Instructions Note Date & Type Note Facility 04-01-2025 History of Presen t illness Narrative Images from the original note were not included. [facility] Virtual Encounter Evaluation Patient consented to the encounter being held via virtual media Alistair Mcnally and Ruth Smith are present during telemedicine encounter I have communicated my name and active licensure. The patient's identity and physical location were verified at the time of this visit. Either the patient or their legal provider relations representative has been informed of the risks and benefits of -- and alternatives to -- treatment through a remote evaluation and consents to proceed with the evaluation remotely. SUBJECTIVE Ruth Smith with PAST MEDICAL HISTORY Diagnosis Date Bipolar 1 disorder (HCC) Cirrhosis (HCC) Colon cancer (HCC) Diabetes (HCC) Hypertension Splenomegaly presents to [facility] Pain Management Department for a follow-up appointment for back pain. Since the last visit, Ruth Smith states the pain has been persistent. Current pain intensity is 8 on a scale of 0 -10. Are you having pain associated with this visit? Yes What is your Pain Level? 8 Pain Location Leg-Right Pain Description Aching Burning Dull Numbness Radiating Sharp Shooting Sore Stabbing Tenderness Tingling Pain Duration Amount of Time 7 Duration Units Months Pain Frequency Continuous Intervention/Comfort measure Relaxation Aromatherapy to promote a healing environment Cold Education Heat Imagery Music Pillow support Positioning Carlo Smith is a 54-year-old male with a history of chronic pain, presenting for follow-up. Carlo reports a significant increase in pain over the past two weeks, localized to the lower back and radiating down the right leg, extending from the hip to the foot. He denies any recent falls or injuries that could have precipitated this exacerbation. The pain intensifies with internal and external rotation of the leg, particularly when turning the toe outward, which elicits severe lower back pain. He is currently using a pillow under his leg for support. Carlo is on multiple medications for pain management, including duloxetine, which was recently increased, but he reports no noticeable improvement. He also takes Flexeril at night but notes it is ineffective, as evidenced by only one hour of sleep this morning. Additionally, he is on gabapentin, taking one pill in the morning, one in the afternoon, and two at night (totaling 800 mg at night). He mentions a recent increase in gabapentin dosage by Dr. Pisano but did not receive a new prescription, leading to a lapse in medication last week. His family doctor, whom he has not consulted since January, unexpectedly provided a new prescription. He denies using any other medications for pain. Carlo is also using ketamine wax squares, obtained online through a friend's mother, primarily for depression rather than pain management. He has a follow-up appointment with a pain psychologist and is scheduled for an EMG on April 28 in [place], although he expresses concern about his ability to make the trip due to his current pain level. Additionally, Carlo is experiencing difficulty with ambulation and reports that tamsulosin, prescribed by his urologist, is prolonging his time in the bathroom. He has a follow-up appointment with his urologist in May to discuss a potential procedure involving a flap. Pain Procedures: L5 TFESI by [facility] Physical Therapy/Home Exercise: Yes Pain medications reviewed: No Pain Medications: Duloxetine Gabapentin Cyclobenzaprine Gabapentin Trazodone OARRS Report: Reviewed: The patient's OARRS report was reviewed and is consistent with the reported medication use. Information copied and pasted from last visit to Pain Management 02/21/2025 Diagnoses of Radiculopathy, lumbar region, Diabetic [...] 60 mg daily. - Obtain EMG at [facility]. - Follow-up in 4 weeks, virtual appointment [...] with extensive nerve involvement in lower extremities. New or Pertinent Imaging Objective April 01, 2025 11/12/24 CT LUMBAR Comparison is made to MR lumbar spine [...] assessed on the prior MR dated 08/26/2024. Past imaging reviewed includes: February 21, 2025 Past imaging reviewed includes: Reports listed here were copy and pasted directly into the note by myself after review of the complete report and/or the images. Those areas highlighted in red are significant and to today's encounter. OBJECTIVE Physical Exam General: Well appearing, alert, in no acute distress, well-hydrated, well nourished. Recumbent. Mental Status: Alert and Oriented x3. Speech is normal. Affect: depressed HEENT: Pupils equal, round, reactive to light. Not pinpoint. Pulmonary: Breathing easily without tachypnea or bradypnea. ASSESSMENT & PLAN Assessment & Plan 04/01/2025 The primary encounter diagnosis was Radiculopathy, lumbar region. Diagnoses of Diabetic peripheral neuropathy (HCC), History of total right hip replacement, H/O lumbar discectomy, and Polyneuropathy were also pertinent to this visit. # Radiculopathy, lumbar region (M54.16) # Polyneuropathy (G62.9) Chronic lumbar radiculopathy with worsening lower back pain radiating into the right leg; pain exacerbated by internal and external rotation of the leg. - Continue duloxetine as previously prescribed. - Continue Flexeril at night. - Continue gabapentin 1 pill in the morning, 1 pill in the afternoon, and 2 pills (800 mg) at night. - EMG scheduled for April 28 in [place]. - Advised patient to go to the ER if pain becomes severe, if unable to walk due to leg weakness, or if experiencing incontinence. - Follow-up after EMG to review results and determine next steps. # Diabetic peripheral neuropathy (HCC) (E11.42) # History of total right hip replacement (Z96.641) # H/O lumbar discectomy (Z98.890) Using oral ketamine at home - did not disclose when asked about meds using. States he is using it for depression. I will proceed with caution in light of this information out of concern for additional sedating medications. Alistair Mcnally MD Electronic signature The above plan and management options were discussed with patient. The patient is in agreement with the above and verbalized understanding. We discussed options for additional treatment including but not limited to: health promotion/lifestyle modifications, medication management, and additional pain management interventions as appropriate. Alistair Mcnally MD Electronic signature 1. This office note has been dictated and may contain minor typographic errors that escaped review. Relevant History from the Electronic Medical Record ALLERGIES Allergen Reactions Clindamycin Other: See Comments [...] Father at 59. Multiple CABG, defib Social History: Alcohol Use: No Tobacco Use: Types: Cigarettes Drug Use: No Employer And Job Title: None on file Years Of Education Completed: Not specified Marital Status: Single Medical Decision Making Notes and tests identified as copied and pasted above were directly placed into the frame of this note by myself and are pertinent to my medical decision making. documented in this encounter [facility] 04-01-2025 Note HNO ID: [id number] Author: ALISTAIR MCNALLY MD Service: ? Author Type: Physician Type: Progress Notes Filed: 04/01/2025 16:14 Note Text: [facility] Virtual Encounter Evaluation Patient consented to the encounter being held via virtual media Alistair Mcnally and Ruth Smith are present during telemedicine encounter I have communicated my name and active licensure. The patient's identity and physical location were verified at the time of this visit. Either the patient or their legal provider relations representative has been informed of the risks and benefits of -- and alternatives to -- treatment through a remote evaluation and consents to proceed with the evaluation remotely. SUBJECTIVE Ruth Smith with PAST MEDICAL HISTORY Diagnosis Date Bipolar 1 disorder (HCC) Cirrhosis (HCC) Colon cancer (HCC) Diabetes (HCC) Hypertension Splenomegaly presents to [facility] Pain Management Department for a follow-up appointment for back pain. Since the last visit, Ruth Smith states the pain has been persistent. Current pain intensity is 8 on a scale of 0 -10. Are you having pain associated with this visit? Yes What is your Pain Level? 8 Pain Location Leg-Right Pain Description Aching Burning Dull Numbness Radiating Sharp Shooting Sore Stabbing Tenderness Tingling Pain Duration Amount of Time 7 Duration Units Months Pain Frequency Continuous Intervention/Comfort measure Relaxation Aromatherapy to promote a healing environment Cold Education Heat Imagery Music Pillow support Positioning Carlo Smith is a 54-year-old male with a history of chronic pain, presenting for follow-up. Carlo reports a significant increase in pain over the past two weeks, localized to the lower back and radiating down the right leg, extending from the hip to the foot. He denies any recent falls or injuries that could have precipitated this exacerbation. The pain intensifies with internal and external rotation of the leg, particularly when turning the toe outward, which elicits severe lower back pain. He is currently using a pillow under his leg for support. Carlo is on multiple medications for pain management, including duloxetine, which was recently increased, but he reports no noticeable improvement. He also takes Flexeril at night but notes it is ineffective, as evidenced by only one hour of sleep this morning. Additionally, he is on gabapentin, taking one pill in the morning, one in the afternoon, and two at night (totaling 800 mg at night). He mentions a recent increase in gabapentin dosage by Dr. Pisano but did not receive a new prescription, leading to a lapse in medication last week. His family doctor, whom he has not consulted since January, unexpectedly provided a new prescription. He denies using any other medications for pain. Carlo is also using ketamine wax squares, obtained online through a friend's mother, primarily for depression rather than pain management. He has a follow-up appointment with a pain psychologist and is scheduled for an EMG on April 28 in [place], although he expresses concern about his ability to make the trip due to his current pain level. Additionally, Carlo is experiencing difficulty with ambulation and reports that tamsulosin, prescribed by his urologist, is prolonging his time in the bathroom. He has a follow-up appointment with his urologist in May to discuss a potential procedure involving a flap. Pain Procedures: L5 TFESI by [facility] Physical Therapy/Home Exercise: Yes Pain medications reviewed: No Pain Medications: Duloxetine Gabapentin Cyclobenzaprine Gabapentin Trazodone OARRS Report: Reviewed: The patient's OARRS report was reviewed and is consistent with the reported medication use. Information copied and pasted from last visit to Pain Management 02/21/2025 Diagnoses of Radiculopathy, lumbar region, Diabetic [...] 60 mg daily. - Obtain EMG at [facility]. - Follow-up in 4 weeks, virtual appointment [...] right hip replacement (Z96.641) Previous right hip replacemen (more content not included)... [facility] 03-24-2025 Telephone encounter Note Noted Dr. Mcnally's 02/21/25 plan. Pt's appt. Virtual is scheduled 04/01/25.Message sent to Dr. Mcnally and LUIS Li [facility] 03-24-[address] Mcnally's 02/21/25 plan. Pt's appt. Virtual is scheduled 04/01/25.Message sent to Dr. Mcnally and LUIS Li Patient is inquiring if Dr Mcnally will prescribe Gabapentin which he is in need of from a previous Provider. Patient is stating that his pain has increased and is inquiring if Dr Mcnally will prescribe any pain med or Prednisone. Patient is inquiring if he still needs his upcoming appointment with Dr Mcnally. documented in this encounter [facility] 03-24-2025 Telephone encounter Note Patient is inquiring if Dr Mcnally will prescribe Gabapentin which he is in need of from a previous Provider. Patient is stating that his pain has increased and is inquiring if Dr Mcnally will prescribe any pain med or Prednisone. Patient is inquiring if he still needs his upcoming appointment with Dr Mcnally. [facility] 03-24-2025 History of Presen t illness Narrative Images from the original note were not included. [address] [place] [address] [address] [facility] [id number] Patient: Ruth Smith Date of : 1970 Encounter Date: 03/24/2025 History of Present Illness: The patient is a 54 y.o. male, an established patient, and is here for Chief Complaint Patient presents with Follow-up . History BPH lower urinary tract symptoms. Status post cystoscopy. Did have temporary improvement in urination after cystoscopy. Does have return of his lower urinary tract symptoms as detailed previous notes. Does tolerate tamsulosin. One tablet. Urinalysis today: No results for input(s): EXTPOCURCO , EXTPOCURCH , EXTPOCAPP , EXTPOCURBS , EXTPOCURBIL , EXTPOCUKET , EXTPOCUSPG , EXTPOCUHGB , EXTPOCUPRO , EXTPOCUURO , EXTPOCULEU , EXTPOCUNIT , EXTPOCUWBC , EXTPOCUBLD , EXTPOCURBC , EXTPOCUCRY , EXTPOCUBAC , EXTPOCUTREP , EXTPOCUPH , EXTPOCULEE in the last 72 hours. Last BUN and creatinine: Lab Results Component Value Date BUN 15 11/12/2024 Lab Results Component Value Date CREATININE 0.86 11/12/2024 Last PSA: Lab Results Component Value Date PSA 0.44 03/20/2025 No results found for: PROSTATICSP Past Medical, Family, and Social History Update: The following portions of the patient's history were reviewed and updated as appropriate: allergies, current medications, past family history, past medical history, past social history, past surgical history and problem list. Past Medical History: Diagnosis Date Allergic 2010 Anxiety 2016 Asthma Back pain Chronic cough from lisinopril Chronic pain disorder Cirrhosis ([facility]) Colon cancer ([facility] [place]) 2018 COPD (chronic obstructive pulmonary disease) ([facility] [place]) Depression Diabetes mellitus type 2, controlled ([facility] [place]) Fibromyalgia, primary Fracture of right hip, closed, initial encounter ([facility]) 01/17/2024 GERD (gastroesophageal reflux disease) Hyperlipidemia Hypertension Infectious viral hepatitis 2018 Inflammatory bowel disease 2018 Insulin-treated type 2 diabetes mellitus ([facility] [place]) Joint pain Kidney stones Liver disease Low back pain Neck pain Obesity Osteoarthritis Peptic ulceration 1994 Peripheral neuropathy 2017 Visual impairment Past Surgical History: Procedure Laterality Date BACK SURGERY 1999 Dr. Veto [facility] L5 ruptured disc per patient COLON SURGERY resection, 2018, [facility] COLONOSCOPY 2021 CYSTOSCOPY N/A 01/29/2025 Performed by Marc Alves MD at [facility] DAVINCI REPAIR HERNIA VENTRAL N/A 10/27/2021 Performed by Ridge Cedillo MD at [facility] DENTAL SURGERY pt had all teeth removed FRACTURE SURGERY 2023 Hip,and femur INGUINAL HERNIA REPAIR 2019 INSERTION INTRAMEDULLARY NAIL FEMUR Right 01/30/2024 Performed by Ang Figueroa MD at [facility] INSERTION INTRAMEDULLARY NAIL FEMUR-TFNA HIP FX Right 01/18/2024 Performed by Ang Figueroa MD at [facility] ORTHOPEDIC SURGERY 2007 foot, infected foot REMOVAL HARDWARE INTRAMEDULLARY NAIL/KATERYNA FEMUR Right 01/30/2024 Performed by Ang Figueroa MD at [facility] SMALL INTESTINE SURGERY 2018 UMBILICAL HERNIA REPAIR Family History Problem Relation [...] total) by mouth once daily at bedtime. [employer]EX[employer] G7 SENSOR device DULoxetine (CYMBALTA) 30 mg capsule Take 1 capsule (30 mg total) by mouth in the morning. fenofibrate (LOFIBRA) 160 mg tablet Take 1 tablet (160 mg total) by mouth in the morning. FIASP FLEXTOUCH U-100 INSULIN 100 unit/mL (3 mL) insulin pen Inject 15 Units under the skin Daily before evening meal. gabapentin (NEURONTIN) 300 mg capsule Take 1 [...] (4 mg total) on tongue as needed. OZEMPIC 0.25 mg or 0.5 mg (2 mg/3 mL) pen injector Inject 0.5 mg under the skin once a week. Monday sucralfate (CARAFATE) 1 gram tablet Take 1 tablet (1 g total) by mouth in the morning and 1 tablet (1 g total) at noon and 1 tablet (1 g total) in the evening and 1 tablet (1 g total) before bedtime. traZODone (DESYREL) 50 mg tablet Take 1 [...] mouth in the morning and at bedtime. atorvastatin (LIPITOR) 40 mg tablet Take 1 tablet (40 mg total) by mouth in the morning. tamsulosin (FLOMAX) 0.4 mg capsule Take 2 capsules (0.8 mg total) by mouth nightly. 180 capsule 3 No current facility-administered medications for this visit. (All medications reviewed and updated by provider since last office visit or hospitalization) Allergies: Clindamycin and Insulin glargine Tobacco History: Social History Tobacco Use Smoking Status Every Day Current packs/day: 0.50 Average packs/day: 0.5 packs/day for 55.3 years (27.6 ttl pk-yrs) Types: Cigarettes Start date: 12/06/1989 Smokeless Tobacco Never (If patient a smoker, smoking cessation counseling offered) Social History: Social History Substance and Sexual Activity Alcohol Use Not Currently Review of Systems: General: Negative for chills and fever. Cardiovascular: Negative for chest pain and shortness of breath. Gastrointestinal: Negative for constipation, diarrhea, nausea, and vomitting. -per HPI Physical Exam: BP 142/84 Pulse 90 Ht 185.4 cm (6' 1 ) Wt 104.3 kg (230 lb) BMI 30.34 kg/m General Alert., Cooperative. Not in acute distress. Non-toxic. Orientation - Oriented X3. Head and Neck Normocephalic, atraumatic with no lesions. No abnormal movements. Trachea - midline. Integumentary Normal coloration of skin. Skin Moisture - normal skin moisture. Chest and Lung Exam Quiet, even and easy respiratory effort with no use of accessory muscles. Neurologic NON-focal Assessment and Plan: Carlo was seen today for follow-up. Diagnoses and all orders for this visit: Difficulty urinating Other orders - tamsulosin (FLOMAX) 0.4 mg capsule; Take 2 capsules (0.8 mg total) by mouth nightly. Problem List High Difficulty urinating - Primary Overview ==== 03/24/2025 ==== tolerates tamsulosin. Been on since roughly 2017. Still symptomatic. Had improvement albeit temporary after cystoscopy. Lateral lobe hypertrophy noted. Could be UroLift candidate. Plan: Increase tamsulosin 2 tablets. ====12/04/24==== hesitancy and weak stream. Symptoms began when he had worsening back pain. PVR 83. Recent UA negative. Recent CT negative. He agrees to cystoscopy under MAC anesthesia. If symptoms improve after what sounds to be an ablation with [facility], he will call and cancel. At his convenience, he will stop at the lab for a PSA. Follow-up: Return clinic 6-8 weeks Marc Alves MD Prescription drug management performed during today's office visit This note was created with the assistance of a speech recognition program. While intending to generate a timely document that accurately reflects the content of the visit, no guarantee can be provided that every grammatical or spelling mistake has been or will be identified or corrected. Thank you for your understanding. documented in this encounter [facility] 03-24-2025 Note HNO ID: [id number] Author: ASHLEY LEMA LSW Service: ? Author Type: Shared Services And Outsourcing Manager Type: Progress Notes Filed: 03/24/2025 08:13 Note Text: deferred Patient's name appears on the [facility] report for a PHQ-9 score of 13. Patient completed this questionnaire for Psychiatry appt on 03/19/25 with Nohemy Ramirez PSYD. PHQ-9 score was addressed during this appt. SW follow up not indicated. NEAL Chow [facility] 03-24-2025 History of Presen t illness Narrative deferred Patient's name appears on the [facility] report for a PHQ-9 score of 13. Patient completed this questionnaire for Psychiatry appt on 03/19/25 with Nohemy Ramirez PSYD. PHQ-9 score was addressed during this appt. SW follow up not indicated. NEAL Chow documented in this encounter [facility] 03-19-2025 Note HNO ID: [id number] Author: NOHEMY RAMIREZ PSYD Service: ? Author Type: Psychologist Type: Progress Notes Filed: 03/19/2025 11:58 Note Text: [facility] Psychological Evaluation March 19, 2025 Ruth Smith [facility]#: [id number] CPT Code: 63040 Psychiatric diagnostic evaluation Appointment Start: 10 AM I have communicated my name and active licensure. The patient's identity and physical location were verified at the time of this visit. Either the patient or their legal provider relations representative has been informed of the risks and benefits of -- and alternatives to -- treatment through virtual visit and consents to proceed with the session remotely. The patient e-signed the Informed Consent for Psychological Evaluation AND Care Form, and the [facility] health care insurance benefits, fees for service, emergency procedures, and the limits of confidentiality that may pertain with any given case were discussed with the patient. The patient was given a copy of the consent form on [employer]. The patient consented to a virtual visit and their location was confirmed. 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 He was referred by Jaycob Mcnally MD for psychological evaluation in the context of chronic pain. This consultation was shared with the referral source via the [facility] electronic medical record. Limits to confidentiality were discussed and agreed upon. Informed consent was provided verbally. Patient was informed that this evaluation is for consultation and not to be used for legal or forensic purposes. The goal of the following assessment is to identify the psychological, behavioral, cognitive, and social factors important to or directly affecting the patient?s physiological functioning, health and well-being, as it relates to his/her pain condition. Recommendations will be provided to improve the patient?s health and well-being via cognitive, behavioral, social and/or psychophysiological procedures designed to ameliorate pain related problems. Chief complaints: Carlo complains of low back pain radiating into the right LE. Sitting worsens pain. He also has chronic neck pain which radiates intermittently in the left UA. Patient Entered Questionnaires 03/17/2025 PROMIS CAT Fatigue PROMIS Fatigue T-Score 76 (severe) PROMIS Fatigue Percentile 0 12/26/2024 01/13/2025 02/20/2025 PROMIS CAT Pain Interference PROMIS Pain Interference T-Score (range: 10 - 90) 74 (severe) 74 (severe) 72 (severe) PROMIS Pain Interference Percentile 1 1 03/17/2025 PROMIS CAT Satisfaction with Social Roles PROMIS - Satisfaction with Participation in Social Roles T-Score 33 (Low) PROMIS Social Role Satisfaction Percentile 4 03/18/2025 PROMIS CAT Self-Efficacy Manage Symptoms PROMIS Self-Efficacy for Managing Symptoms T-Score 32 (Low) PROMIS Self-Efficacy Manage Symptoms Percentile 4 11/18/2024 02/18/2025 03/18/2025 PROMIS Global Health Scale Physical Health Percentile 1 0 0 Mental Health Percentile 1 2 3 Patient-reported 11/18/2024 02/18/2025 03/18/2025 PROMIS Global Health - (T-Scores - the mean of general population = 50. Five points is a clinically meaningful difference.) Physical T-Score 26.7 23.5 23.5 19.9 Mental T-Score 25.1 28.4 28.4 31.3 Multiple values from one day are sorted in reverse-chronological order Percentiles provide an indication of how the patient's score ranks in relation to the general population. Higher percentile rankings indicate better function/quality of life. 50th percentile is the average of the general population and indicates half of respondents had a worse score. > 31st percentile is within normal limits or better * < 31st percentile is at least ? SD worse than population, which may be clinically relevant < 16th percentile is at least 1 SD worse than population and warrants attention 03/18/2025 Pain Catastrophizing Scale (PCS) - Scores Rumination Subscore 10 Magnification Subscore 2 Helplessness Subscore 13 PCS Total Score 25 25 reflects moderate/average levels of pain catastrophizing scores above 30 considered high risk (associated with more pain, lessened treatment response, more depression) 02/18/2025 03/18/2025 PHQ-9 PHQ-2 Score 6 3 PHQ-9 Score 19 (Moderately Severe Depression) 13 (Moderate Depression) History of Pain Syndrome: The following history is from the patient's report and a review of the EMR independently confirmed with the patient in this visit. Hx of colon cancer Ruptured disc in 1999. Returned to work. Pain progressively continued to get worse but was manageable. In 2001 he had a compression fracture in the lumbar spine. Last year in January, Carlo unfortunately fell and fractured his right hip and right femur. He (more content not included)... [facility] 02-21-2025 Note HNO ID: [id number] Author: ASHLEY LEMA LSW Service: ? Author Type: Shared Services And Outsourcing Manager Type: Progress Notes Filed: 02/21/2025 15:13 Note Text: Unable To Reach Patient Patient's name appears on the PRO [facility] report for PHQ-9 score of 19. SW was unable to reach Patient for follow up. NEAL Chow [facility] 02-21-2025 History of Presen t illness Narrative Unable To Reach Patient Patient's name appears on the PRO [facility] report for PHQ-9 score of 19. SW was unable to reach Patient for follow up. NEAL Chow documented in this encounter [facility] 02-21-2025 Note HNO ID: [id number] Author: ALISTAIR MCNALLY MD Service: ? Author Type: Physician Type: Progress Notes Filed: 02/21/2025 16:10 Note Text: [facility] Pain Management Department Follow-Up Evaluation Chief [...] a facility closer to his residence in [place]. Carlo is currently on duloxetine 30 mg [...] temporary relief. - Scheduled repeat epidural at [facility], [address]. - Initiated duloxetine 30 mg PO daily. [...] to pain psych (more content not included)... [facility] 02-21-2025 History of Presen t illness Narrative Images from the original note were not included. [facility] Pain Management Department Follow-Up Evaluation Chief [...] commode, requiring 10-15 minutes to regain sensation. aCrlo underwent two surgeries last year, including a [...] a facility closer to his residence in [place]. Carlo is currently on duloxetine 30 mg [...] temporary relief. - Scheduled repeat epidural at [facility], and . - Initiated duloxetine 30 mg PO daily. [...] 60 mg daily. - Obtain EMG at [facility]. - Follow-up in 4 weeks, virtual appointment [...] note may have been input by my medical records technician, resident, fellow, nurse, or nurse practitioner [...] medical decision making. documented in this encounter [facility] 02-21-2025 Instructions Alistair Mcnally MD - [...] symptoms. I will send the order to [facility], as requested. - I increased your duloxetine [...] changes or concerns. documented in this encounter [facility] 02-20-2025 Instructions Zac Crouch MD - 02/20/2025 3:01 PM EDT Blood work today F/u in 6 months documented in this encounter [facility] 02-20-2025 History of Presen t illness Narrative PATIENT NAME: Ruth Smith CLINIC NO.: [id number] ATTENDING PHYSICIAN: Zac Crouch MD DATE OF SERVICE: November 28, [address] Abrahan Rinaldi [address] [facility] [address] thank you for referring Ruth Smith for [...] Range Status 11/28/2024 6.0 % Final Abs Isabella Date Value Ref Range Status 11/28/2024 0.52 [...] in [address] Abrahan Rinaldi [address] [facility] [address] thank you for allowing me to participate in Ruth Smith care, if there are any questions or concerns please do not hesitate to contact me at the number below. I spent a total of 20 minutes on the date of the service which included preparing to see the patient, [id number] patient care, completing clinical documentation, obtaining and/or reviewing separately obtained history, performing a medically appropriate examination, counseling and educating the patient/family/caregiver, ordering medications, tests, or procedures, communicating with other HCPs (not separately reported), independently interpreting results (not separately reported), communicating results to the patient/family/caregiver, and care coordination (not separately reported). Zac Crouch MD. Hematology/Medical Oncology [facility] [place] [phone] CC: documented in this encounter [facility] 02-20-2025 Note HNO ID: [id number] Author: ZAC CROUCH MD Service: ? Author Type: Physician Type: Progress Notes Filed: 02/20/2025 16:15 Note Text: PATIENT NAME: Ruth Smith [facility] [id number] ATTENDING PHYSICIAN: Zac Crouch MD DATE OF SERVICE: November 28, [address] Abrahan Rinaldi [address] [facility] [address] thank you for referring Ruth Smith for [...] Eyes: Anicteric s (more content not included)... [facility] 01-29-2025 Miscellaneous Notes Return the office 4-6 weeks documented in this encounter [facility] 01-29-2025 Telephone encounter Note Return the office 4-6 weeks [employer] Work Phone: 01-15-2025 Instructions Ne Vega RN - 01/15/2025 1:30 PM EDT Preoperative Education Checklist- General Surgery date: 01/29/25 Surgery time: 830a Arrival time: 630a 1. Bring a photo ID and your insurance card with you the day of surgery. You will check in at the main lobby of the [facility]- registration desk is straight ahead as soon as you walk in. Tell them you are here for surgery. 2. If you have a Living Will/Durable Power of Centrifugal Operator for Health Care that is not on [...] after you have bathed. 5. NO nail vatican citizen/acrylic on at least one finger. If you are having a hand, wrist or foot surgery then all nail vatican citizen and artificial/acrylic nails must be removed from [...] please call the Preadmission Testing office at [phone], Mon.-Fri. 7 a.m.-3 p.m. Leave a voicemail [...] with your doctor. [facility] Instructions Alistair Mcnally MD - 01/13/2025 9:10 PM EDT We discussed your chronic back and leg pain: - I recommend trying another epidural steroid injection to help manage your pain. I will perform this procedure at the [facility] ([address] Please call [phone] (option 2) to schedule this. - I prescribed Duloxetine 30 mg, to be taken once daily. This medication may help alleviate nerve pain. The prescription has been sent to your pharmacy. - You may consider resident care aide or massage therapy if you find it helpful. These are safe options, but ensure they are affordable and sustainable for you. We discussed additional pain management options: - I recommend enrolling in the Empowered Relief course, a two-hour virtual program that focuses on managing chronic pain through a biopsychological approach. You will receive a scheduling ticket through [employer] to sign up. - I have added [...] You will receive a scheduling ticket through [employer] to set this up. Next steps: - [...] questions or concerns. documented in this encounter [facility] 01-13-2025 History of Presen t illness Narrative Images from the original note were not included. THE [facility] Neurological [place] January 13, 2025 I have communicated my name and active licensure. The patient's identity and physical location were verified at the time of this visit. Either the patient or their legal provider relations representative has been informed of the risks and benefits of -- and alternatives to -- treatment through a remote evaluation and consents to proceed with the evaluation remotely. The patient consented to the use of ambient [employer] software for draft documentation of the visit consistent with [facility]'s Notice of Privacy Practices. = Ruth Smith is a 54 year old single disabled x since 2012 (spine surg 2000 + nerve damage) years who lives with self in [place], [place]. He was referred by No referring [...] after the injections. He has not tried resident care aide, massage, or acupuncture. He spends more than [...] single, living alone, and has a part-time edge blacker and friend for support. He is on a fixed income with disability and reports financial stress due to medical bills. He has a strong support system from his frie, nd's family. 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 R L5 TFESI on 12/16/24, no follow up with dept since Spine Red Flag Ruth Smith has no red flag symptoms. 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 11/03/24 XR LUMBAR IMPRESSION: Pgqe-lp-npeywrfi degenerative changes and slight retrolisthesis L3 on [...] temporary relief. - Scheduled repeat epidural at [facility], [address]. - Initiated duloxetine 30 mg PO daily. [...] which included preparing to see the patient, yzjd-xl-yktj patient care, completing clinical documentation, and counseling and educating the patient/family/caregiver. Alistair Mcnally MD Important Patient Information: 1. To schedule Pain Recovery appointments or post-injection office visits, please call: [phone] 2. The nursing staff and medical assistants are an integral part of your pain recovery team and will be handling your phone calls and inquiries. 3. Your study results and treatment plan will be discussed during a follow-up appointment. If you do not have a follow-up appointment and wish to discuss any issues directly with me, please call: [phone] to set-up an appointment. 4. MyChart is best used for refill requests or yes or no questions. Anything more complicated will likely require a follow-up appointment that you can schedule by [phone]. 5. If you are scheduled for a ketamine infusion, you will be contacted regarding specific scheduling instructions in the future by our department. There is no need to contact our department regarding the scheduling process or your estimated wait; you will be contacted once there is an opening. documented in this encounter [facility] 01-13-2025 Note HNO ID: [id number] Author: ALISTAIR MCNALLY MD Service: ? Author Type: Physician Type: Progress Notes Filed: 01/13/2025 21:15 Note Text: THE [facility] Neurological [place] January 13, 2025 I have communicated my name and active licensure. The patient's identity and physical location were verified at the time of this visit. Either the patient or their legal provider relations representative has been informed of the risks and benefits of -- and alternatives to -- treatment through a remote evaluation and consents to proceed with the evaluation remotely. The patient consented to the use of ambient AI software for draft documentation of the visit consistent with [facility]'s Notice of Privacy Practices. = Ruth Smith is a 54 year old single disabled x since 2012 (spine surg 2000 + nerve damage) years who lives with self in [place], [place]. He was referred by No referring [...] after the injections. He has not tried resident care aide, massage, or acupuncture. He spends more than [...] single, living alone, and has a part-time edge blacker and friend for support. He is on a fixed income with disability and reports financial stress due to medical bills. He has a strong support system from his kash aviles's family. 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 R L5 TFESI on 12/16/24, no follow up with dept since Spine Red Flag Ruth Smith has no red flag symptoms. Anesthesia: No Schizophrenia: No : NA CHF: No Uncontrolled HTN: No Recent VT: Yes - started with pain Arrythmias: No [...] sofa, ottoman, etc.) (more content not included)... [facility] 12-19-2024 Telephone encounter Note Patient calling back reporting 50% pain relief- mostly in the lower back. Unable to give a percentage of functional improvement. States he has been sick for the last coupe days and has not been out of bed much. He has VV with Komal Hernadez on 01/03. Will schedule 4-6 week follow up at that visit per patient. [facility] 12-19-2024 Miscellaneous Notes Patient calling back [...] for follow up. documented in this encounter [facility] 12-18-2024 Telephone encounter Note Message left for patient to call in with an update. Please document the % (40%, 50%,etc) of improvement and any functional improvement since his procedure with Dr. Rinaldi on 12/16/24. Right L5-S1 Transforaminal Epidural Steroid injection # 1 Pre pain: 8 Post pain: 7 Plan: Return to clinic in 4-6 weeks for follow up. [facility] 12-12-2024 Radiology Diagnostic study note [facility] [address] [place] [address] Ultrasound Report Signed Patient: Ruth Smith MR #: [id number] : 1970 Acct:[id number] Age/Sex: 54 / M ADM Date: 5 Loc: Room: Type: [facility] Attending Dr: Guillermo Thornton MD Ordering [...] Kuo M.D. 12/12/2024 7:59 PM Dictation Location: [place] [address] Tech: Keren Hope Transcribed By: YAZ 12/12/241958 Dictated By: Thierry Kuo MD 12/12/241954 Signed By: 12/12/241958 [facility] Work Phone: 12-05-2024 Evaluation note Diagnosis Onset Date Resolution Cirrhosis acute December 05 1:16pm Esophageal varices acute December 05, 2024 1:16pm GERD (gastroesophageal reflux disease) acute December 05, 2024 1:16pm Hepatic encephalopathy acute Ap ril 2024 1:16pm Irritable bowel syndrome with diarrhea acute December 05, 2024 1:16pm Personal history of colon cancer acute December 05, 2024 1:16pm [facility] Work Phone: 1(611) 365-666604-23-2025 Evaluation + Plan note* Assessment & Plan Note - HUBERT Wright - 12/04/2024 4:15 PM EDTAssociated Problem(s): Difficulty urinating We discussed that he may need urodynamics as well. [facility] Action [id number] Miscellaneous Notes* Assessment & Plan Note - HUBERT Wright - 12/04/2024 4:15 PM EDTAssociated Problem(s): Difficulty urinating We discussed that he may need urodynamics as well. [facility] Action [id number] History of Present illness Narrative* HUBERT Wright - 12/04/2024 3:30 PM EDT Images from the original note were not included. [address] [place] [address] [address] [facility] [id number] Patient: Ruth Smith Date of : 1970 [...] No prior urologic history. He is seeing [facility] for the back pain and is scheduled [...] from lisinopril Chronic pain disorder Colon cancer ([facility]) 2018 COPD (chronic obstructive pulmonary disease) ([facility]) Depression Diabetes mellitus type 2, controlled ([facility]) Fibromyalgia, primary Fracture of right hip, closed, initial encounter ([facility]) 01/17/2024 GERD (gastroesophageal reflux disease) Hyperlipidemia Hypertension Infectious viral hepatitis 2018 Inflammatory bowel disease 2018 Insulin-treated type 2 diabetes mellitus ([facility]) Joint pain Kidney stones Liver disease Low back pain Neck pain Obesity Osteoarthritis Peptic ulceration 1994 Peripheral neuropathy 2017 Visual impairment Past Surgical History: Procedure Laterality Date BACK SURGERY 1999 Dr. Veto [facility] L5 ruptured disc per patient COLON SURGERY resection, 2017, [facility] COLONOSCOPY 2021 DAVINCI REPAIR HERNIA VENTRAL N/A 10/27/2021 Performed by Ridge Cedillo MD at [facility] pt had all teeth removed FRACTURE SURGERY 2023 Hip,and femur HERNIA REPAIR x's 2 INGUINAL HERNIA REPAIR 2019 INSERTION INTRAMEDULLARY NAIL FEMUR Right 01/30/2024 Performed by Ang Figueroa MD at [facility] INSERTION INTRAMEDULLARY NAIL FEMUR-TFNA HIP FX Right 01/18/2024 Performed by Ang Figueroa MD at [facility] ORTHOPEDIC SURGERY 2007 foot, infected foot REMOVAL HARDWARE INTRAMEDULLARY NAIL/KATERYNA FEMUR Right 01/30/2024 Performed by Ang Figueroa MD at [facility] SMALL INTESTINE SURGERY 2018 SPINE SURGERY 2000 [...] urinating - [facility] - JULIA Cleaning - Measure post void residual Problem List [...] what sounds to be an ablation with [facility], he will call and cancel. [...] HUBERT Wright 12/04/24 1616 [facility] Telephone encounter Note* Telephone Encounter - Brennen Agrawal - 12/02/2024 9:15 AM EDT Right L5-S1 TFCATARINA JEFFERSSONRUTH [id number] ALIYAH RINALDI 12/16 -THINNERS +DM Patient was made aware that the ASC will call the day prior to scheduled procedure between the hours of 12 and 4 pm to advise patient of arrival time the day of procedure. Patient was advised that they will require a lumber stacker driver on the day of their procedure, and procedure will be cancelled if they arrive without a responsible adult to transport them home from the procedure. Patient advised that all medication management instructions prior to procedure will need addressed by clinical staff. Patient expresses understanding with no further questions or concerns at this time. [facility]04-21-2025 Miscellaneous Notes* Telephone Encounter - Brennen Agrawal - 12/02/2024 9:15 AM EDT Right L5-S1 RUTH ESPOSITO [id number] NIMCO 12/16 -THINNERS +DM Patient was made aware that the ASC will call the day prior to scheduled procedure between the hours of 12 and 4 pm to advise patient of arrival time the day of procedure. Patient was advised that they will require a lumber stacker driver on the day of their procedure, and procedure will be cancelled if they arrive without a responsible adult to transport them home from the procedure. Patient advised that all medication management instructions prior to procedure will need addressed by clinical staff. Patient expresses understanding with no further questions or concerns at this time. [facility] Instructions* Patient Instructions* Zac Crouch MD - 11/28/2024 4:02 PM EDT Labs today Start OTC MVT supplements 1 tab daily F/u in 3 months [facility] History of Present illness Narrative* Zac Crouch MD - 11/28/2024 4:00 PM EDT PATIENT NAME: Ruth Smith CLINIC NO.: [id number] ATTENDING PHYSICIAN: Zac Crouch MD DATE OF SERVICE: November 28, [address] Abrahan Rinaldi [address] [facility] [address] thank you for referring Ruth Smith for [...] Wt 105 kg (231 lb 7.7 oz) IxS401% BMI 30.54 kg/m There were no vitals [...] Range Status 11/28/2024 6.0 % Final Abs Isabella Date Value Ref Range Status 11/28/2024 0.52 [...] in [address] Abrahan Rinaldi [address] [facility] [address] thank you for allowing me to participate in Ruth Smith care, if there are any questions or concerns please do not hesitate to contact me at the number below. I spent a total of 45 minutes on the date of the service which included preparing to see the patient, qvfp-ti-ryju patient care, completing clinical documentation, obtaining and/or reviewing separately obtained history, performing a medically appropriate examination, counseling and educating the pat ient/family/caregiver, ordering medications, tests, or procedures, communicating with other HCPs (not separately reported), independently interpreting results (not separately reported), communicatingresults to the patient/family/caregiver, and care coordination (not separately reported). Zac Crouch MD. Hematology/Medical Oncology [place] [address] [phone] CC: documented in [facility]04-[facility]-2025 NoteHNO ID: [id number] Author: ZAC CROUCH MD Service: ? Author Type: Physician Type: Progress Notes Filed: 11/29/2024 08:20 Note Text: PATIENT NAME: Ruth Smith [facility] [id number] ATTENDING PHYSICIAN: Zac Crouch MD DATE OF SERVICE: November 28, [address] Abrahan Rinaldi [address] [facility] [address] thank you for referring Ruth Smith for [...] axillary or inguinal a (more content not included)...[facility]04-14-2025 Telephone encounter Note* Telephone Encounter - Vennepureddy, Zac, MD - 11/25/2024 1:30 PM EDT Thank you. [facility] Work Phone: 1(941) 107-447904-14-2025 Miscellaneous Notes* Telephone Encounter - Zac Crouch [...] or Monday? Thank you. documented in [facility] encounter[facility]04-[facility]-2025 Telephone encounter Note * Telephone Encounter - Donavon De La Garza - 11/25/2024 1:04 PM EDT Spoke to patient & rescheduled him on 11/28/2024 at 1 pm. BEN Holly [facility]04-14-2025 Telephone encounter Note* Telephone Encounter - Zac Crouch MD - 11/25/2024 10:26 AM EDT Can you please reschedule him to some other time on Monday, or Monday? Thank you. [facility]04-11-2025 History of Present illness Narrative* Abrahan Rinaldi MD - 11/22/2024 2:00 PM EDT SUBJECTIVE: Mr. Smith a 54 year old male referred by Martha Faulkner APRN.MANAGER UNIVERSAL presents with the complaint of low back [...] supervised home exercise program (HEP): No 5. Explosive Technician: No Passive conservative therapy lasting 6 weeks in the last six months (see below) 1. Medical devises: No 2. Acupuncture: No 3. Tens unit: No 4. Prescription pain medication: Yes 5. NSAIDS: Yes OCCUPATIONAL HISTORY: [employer] HISTORY OF TRAUMA/OVERUSE OF AREA: No [...] PAST SURGICAL HISTORY OF back injections EXAMINATION: [id number]-[id number]-[id number]: Scoliosis: No Pelvic Tilt: No Leg Length [...] intact. Colonic stool burden is moderate. IMPRESSION: Uham-dk-tamrssmc degenerative changes and slight retrolisthesis L3 on [...] replacement (D69.6) Thrombocytopenia He has been on SSD - 2012 (DM, spine). Has liver cirrhosis [...] 1/2 ppd Hx of colon Ca - 2016 (resection only) no known CAD Plts - [...] which included preparing to see the patient, mqct-ku-args patient care, completing clinical documentation, obtaining and/or reviewing separately obtained history, performing a medically appropriate examination, counseling and educating the pat ient/family/caregiver, ordering medications, tests, or procedures, communicating with other HCPs (not separately reported), independently interpreting results (not separately reported), and communicating results to the patient/family/caregiver. Abrahan Rinaldi MD documented in this encounterMagruder Memorial Hospital04-11-2025 NoteHNO ID: [id number] Author: ABRAHAN RINALDI MD Service: ? Author Type: Physician Type: Progress Notes Filed: 11/25/2024 08:23 Note Text: SUBJECTIVE: Mr. Smith a 54 year old male referred by Martha Faulkner APRN.MANAGER UNIVERSAL presents with the complaint of low back [...] supervised home exercise program (HEP): No 5. Explosive Technician: No Passive conservative therapy lasting 6 weeks in the last six months (see below) 1. Medical devises: No 2. Acupuncture: No 3. Tens unit: No 4. Prescription pain medication: Yes 5. NSAIDS: Yes OCCUPATIONAL HISTORY: [facility] Dist[facility] HISTORY OF TRAUMA/OVERUSE OF AREA: No [...] PAST SURGICAL HISTORY OF back injections EXAMINATION: [id number]-[id number]-[id number]: Scoliosis: No Pelvic Tilt: No Leg Length [...] masses, organomegaly EXTREMITIES: Extremitie (more content not included)...[facility] 11-08-2024 Instructions* Patient Instructions* Martha Faulkner APRN.MANAGER UNIVERSAL - 11/08/2024 4:32 PM EDT Images from the original note were not included. - Contact the Spine Center at [phone] to schedule an appointment. Ask for the [place]. - Obtain copies of your recent ER x-ray images and the MRI from August on a disc to bring to your [facility] appointment. - [facility] [...] pain exercises. Accessed 12/26/2012. Rasheed N, Tanvi Mendez, Joe S, Marvin P, Lidia P. Effect of flexibility exercise on lumbar angle: a study among non-specific low back pain patients. J Bodyw Mov Ther. 2012;16(2):236-43. Accessed 12/26/2012 . [employer] [employer]. Low Back Pain Exercise Guide. Accessed 12/26/2012. ?Copyright 1499-0582 The [facility]. All rights reserved documented in this encounterMagruder Memorial Hospital03-28-2025 NoteHNO ID: [id number] Author: MARTHA FAULKNER APRN.MANAGER UNIVERSAL Service: ? Author Type: Nurse Practitioner Type: Progress Notes Filed: 11/08/2024 16:33 Note Text: Telemedicine Visit - Distance Health Virtual Visit Note Patient seen on CogniTens Video Visit platform. Location of patient: [place]-C I have communicated my name and active licensure. The patient's identity and physical location were verified at the time of this visit. Either the patient or their legal provider relations representative has been informed of the risks [...] further evaluation and management; provided contact number [phone] for scheduling. - Advised patient to obtain copies of recent MRI and X-ray images to bring to the Spine Center appointment. - Also referred to Pain Management for comprehensive pain control. - Discussed potential treatment options including surgical and non-surgical interventions. Orders Placed This Encounter CONSULT TO [facility]INE [facility]ICAL [facility]ENTER Standing Status: Future Expiration Date: 11/08/2025 Scheduling Instructions: please call [phone] for scheduling Does consulting provider have [facility] Epic access?: Yes CONSULT PAIN MGMT Order Comments: PLEASE CALL:[phone] FOR AN APPOINTMENT Standing Status: Future Scheduling Instructions: Please select the clinical reason(s) for this consult to Pain Management: Evaluate and treat. Transfer pain medication prescribing to referring provider when patient on stable medication plan. Location: [facility]: [address] [place] [address] Vinicius., [place], Does consulting provider have [facility] Epic access?: Yes Attestation The patient consented to the use of ambient Rise[employer] software for draft documentation of the visit consistent with [facility]?s Notice of Privacy Practices. - Red flags discussed for need for in person care - All questions answered Martha Faulkner, MSN, BOATS RENTER-MANAGER UNIVERSAL, CUNP [facility] Care Online [facility] [place] [facility] CODING:[facility]03-28-2025 History of Present illness Narrative * Martha Faulkner APRN.ELIANE - 11/08/2024 4:21 PM EDT Telemedicine Visit - Distance Health Virtual Visit Note Patient seen on CogniTens Video Visit platform. Location of patient: [place] Du PA-C I have communicated my name and active licensure. The patient's identity and physical location wereverified at the time of this visit. Either the patient or their legal provider relations representative has been informed of the risks [...] further evaluation and management; provided contact number [phone] for scheduling. - Advised patient to obtain copies of recent MRI and X-ray images to bring to the Spine Center appointment. - Also referred to Pain Management for comprehensive pain control. - Discussed potential treatment options including surgical and non-surgical interventions. Orders Placed This Encounter CONSULT TO [facility]INE [facility]ENTER Standing Status: Future Expiration Date: 11/08/2025 Scheduling Instructions: please call [phone] for scheduling Does consulting provider have [facility] Epic access?: Yes CONSULT PAIN MGMT Order Comments: PLEASE CALL:[phone] FOR AN APPOINTMENT Standing Status: Future Scheduling Instructions: Please select the clinical reason(s) for this consult to Pain Management: Evaluate and treat. Transfer pain medication prescribing to referring provider when patient on stable medication plan. Location: [facility]: [address] [facility] Svetlana Power., [place], Does consulting provider have [facility] Epic access?: Yes Attestation The patient consented to the use of [employer] software for draft documentation of the visit consistent with [facility] s Notice of Privacy Practices. - Red flags discussed for need for in person care - All questions answered Martha Faulkner, MSN, BOATS RENTER-MANAGER UNIVERSAL, [facility] Emergency [facility] [place] MDM CODING: documented in this encounterMagruder Memorial Hospital02-04-2025 Miscellaneous Notes* Telephone Encounter - Hannah Moreno - 09/17/2024 3:58 PM EST Patient called asking if he could have the Pain management referral placed to [facility] instead of [facility]. Advised patient that I would message Marcell to let her know and once the referral is placed we will send the information over to them. Patient verbalized understanding. documented in this encounterFayette County [facility] Hospital02-04-2025 Telephone encounter Note* Telephone Encounter - Hannah Moreno - 09/17/2024 3:58 PM EST Patient called asking if he could have the Pain management referral placed to [facility] instead of [facility]. Advised patient that I would message Marcell to let her know and once the referral is placed we will send the information over to them. Patient verbalized understanding. [facility]01-15-2025 Miscellaneous Notes* Telephone Encounter - DAGO High - 08/28/2024 7:36 AM EST Refill sent. Patient's MRI was scheduled 08/27/2024 through [facility], awaiting result. documented in this encounterFayette County Memorial Hospital01-15-2025 Telephone encounter Note* Telephone Encounter - DAGO High - 08/28/2024 7:36 AM EST Refill sent. Patient's MRI was scheduled 08/27/2024 through [facility], awaiting result. [facility]12-23-2024 History of Present illness Narrative* Komal Slade MA - 08/05/2024 2:00 PM EST Images from the original note were not included. Reason for Appointment: EMG Patient: Ruth Smith : 1970 EMG Computer: Nitro Referring Physician: Marcell Badillo CNP EMG: PRETTY beach lifeguard: Komal Slade CMA Office Location: [place] Reason for EMG: c/o neck pain that radiates down the left arm. Weakness in the hands L>R. Paresthesia. Hx of DM, not taking blood thinners. Comments: Procedure explained to the patient who expressed understanding. documented in this encounterSt. Louis Behavioral Medicine [id number] Miscellaneous Notes* Telephone Encounter - DAGO Clay - 08/05/2024 10:34 AM EST For you * Telephone Encounter - DAGO High - 08/05/2024 10:34 AM EST See telephone note. documented in this encounterFayette County Memorial Hospital12-23-2024 Telephone encounter Note* Telephone Encounter - DAGO Clay - 08/05/2024 10:34 AM EST For you [facility] [employer] Work Phone: [phone]) 370-791712-23-2024 Telephone encounter Note* Telephone Encounter - DAGO High - 08/05/2024 10:34 AM EST See telephone note. [facility]12-12-2024 History of Present illness Narrative* Marcell Kraft [...] from lisinopril Chronic pain disorder Colon cancer ([facility]) 2018 COPD (chronic obstructive pulmonary disease) ([facility]) Depression Diabetes mellitus type 2, controlled ([facility]) Fibromyalgia, primary Fracture of right hip, closed, initial encounter ([facility]) 01/17/2024 GERD (gastroesophageal reflux disease) Hyperlipidemia Hypertension Insulin-treated type 2 diabetes mellitus ([facility]) Joint pain Kidney stones Liver disease Low back pain Neck pain Obesity Osteoarthritis Visual impairment Past Surgical History: Procedure Laterality Date BACK SURGERY 1999 Dr. Veto Priest[facility] L5 ruptured disc per patient COLON SURGERY resection, 2018[facility] DAVINCI REPAIR HERNIA VENTRAL N/A 10/27/2021 Performed by Ridge Cedillo MD at [facility] pt had all teeth removed HERNIA REPAIR x's 2 INSERTION INTRAMEDULLARY NAIL FEMUR Right 01/30/2024 Performed by Ang Figueroa MD at [facility] INSERTION INTRAMEDULLARY NAIL FEMUR-TFNA HIP FX Right 01/18/2024 Performed by Ang Figueroa MD at [facility] ORTHOPEDIC SURGERY 2008 foot, infected foot REMOVAL HARDWARE INTRAMEDULLARY NAIL/KATERYNA FEMUR Right 01/30/2024 Performed by Ang Figueroa MD at [facility] Social History Tobacco Use Smoking status: Every [...] mg/mL) ANG FIGUEROA MD documented in this encounterFayette County Memorial Hospital12-11-2024 Miscellaneous Notes* Telephone Encounter - CARINE Apodaca - 07/24/2024 11:47 AM EST [facility] Patient called today stating that his EMG is scheduled on 08/05/24 and he hasn't heard from anyone about scheduling the MRI. I advised patient he should call central scheduling to schedule the MRI. Patient stated he will do that when we hang up. Patient also stated that his steroid and pain medicine will run out tomorrow and has to come to [place] tomorrow to see ortho. Patient stated his [...] tomorrow. He will try calling [facility] to schedule MRI. documented in this encounterFayette County Memorial Hospital12-11-2024 Telephone encounter Note* Telephone Encounter - CARINE Apodaca - 07/24/2024 11:47 AM EST [facility] Patient called today stating that his EMG is scheduled on 08/05/24 and he hasn't heard from anyone about scheduling the MRI. I advised patient he should call central scheduling to schedule the MRI. Patient stated he will do that when we hang up. Patient also stated that his steroid and pain medicine will run out tomorrow and has to come to [place] tomorrow to see ortho. Patient stated his doctor is worried about him traveling all the way up here and recommended that he call for a refill of the percocet and prednisone. Patient stated that his PCP will not refill these medications since he was referred to our office. [facility]12-11-2024 Telephone encounter Note* Telephone Encounter - DAGO High - 07/24/2024 11:47 AM EST Refills sent. He denies constipation. The highest his glucose has been is 220. Will decrease prednisone to once daily. He reports he has some swelling at his hip surgical site that he is seeing orthofor tomorrow. He will try calling [facility] to schedule MRI. [facility]12-05-2024 History of Present illness Narrative* DAGO High - 07/18/2024 11:00 AM EST Images from the original note were not included. [facility] [address] [facility] [address] [facility] [address] Subjective Patient ID: Ruth Smith is [...] x 1 week 01/2024 then home PT [facility] Mar -career services assistant: none -Pain management: [facility] 04/02/2024 consult-SIJ injection discussed but patient did not return due to being there for 3.5 hours Prior lumbar injections at [facility] a couple years ago-remembers one helping his left side Had injections after surgery in 1999 -Pertinent spine surgeries/previous consults: [address] L[address] Veto Priest-[facility] 01/18/2024 right intramedullary nail femur placed by Dr Figueroa 01/30/2024 right hip hardware removal and ORIF by Dr Figueroa -Pertinent comorbid conditions: fibromyalgia, T2DM, obesity, iron deficiency anemia, tobacco use, history of colon CA 2018, moderate to severe BLE neuropathy emg 2021-radiculopathy [...] by overlying soft tissue.. MRI cervical 11/13/2023 [facility] Comparison: CT cervical spine 11/01/2023 Motion artifact degrades imaging. Bony alignment: Straightening Bony lesion: None Cervical cord: No significant demyelination Skull base: Unremarkable Prevertebral soft tissues: Unremarkable Vertebral arteries: Unremarkable Cervical soft tissues: Unremarkable C1-C4: Unremarkable C4-5: Mild spondylosis with patent central canal and neural foramen. C5-6: Moderate spondylosis. Moderate diffuse disc bulge. Patent central canal. Hbsh-js-hkekaygr bilateral neural foraminal narrowing. C6-T1: Unremarkable Impression: Moderate C5-6 spondylosis with diffuse disc bulge and rmsq-rs-ztllchiy bilateral neuralforaminal narrowing. MRI lumbar 04/15/2022 [facility] Findings: The bones of the lumbar spine [...] disc bulge with facet hypertrophy. There is cmao-zb-ydhzslcr right andmild left neural foraminal narrowing with mild spinal canal. L3-4: There is facet hypertrophy bilaterally. There is broad-based disc bulge. There is sikx-gg-qxipqvqv bilateral neural foraminal narrowing with mild spinal canal narrowing. L4-5: There is a central disc bulge with facet. There is mild spinal canal narrowing. There is mildbilateral neural foraminal narrowing. L5-S1: There is a circumferential disc bulge with endplate osteophyte formation and facet hypertrophy. There is zfwj-qe-hnmosngn bilateral neural foraminal narrowing with mild spinal canal narrowing. Impression: At L2-3 there is a broad-based disc bulge with facet hypertrophy. There is rztg-mg-uoaakrud right and mild left neural foraminal narrowing with mild spinal canal. This is unchanged. At L3-4 There is broad-based disc bulge. There is mday-of-jnjesqva bilateral neural foraminal narrowing with mild spinal canal narrowing. This is unchanged. At L4-5 there is a central disc bulge with facet. There is mild spinal canal narrowing. There is mild bilateral neural foraminal narrowing. This is unchanged. At L5-S1 there is a circumferential disc bulge with endplate osteophyte formation and facet hypertrophy. There is gpnn-di-hstjjbrs bilateral neural foraminal narrowing with mild spinal [...] view. IMPRESSION: Stable right knee. EMG 2021 [facility] Conclusion: Extensively EMG of the lower extremities [...] from lisinopril Chronic pain disorder Colon cancer ([facility]) 2018 COPD (chronic obstructive pulmonary disease) ([facility]) Depression Diabetes mellitus type 2, controlled ([facility]) Fibromyalgia, primary Fracture of right hip, closed, initial encounter ([facility]) 01/17/2024 GERD (gastroesophageal reflux disease) Hyperlipidemia Hypertension Insulin-treated type 2 diabetes mellitus ([facility]) Joint pain Kidney stones Liver disease Low [...] stretches. He does not wantto return to [place] [facility]. Can see if he would like to return to [facility] once we confirm no surgical findings. His [...] MRI w wo contrast due to prior surgery-[facility] and he will have lumber stacker driver EMG/NCV SHREYA in [place] Prednisone Percocet The patient has tried and failed non-controlled substance medications for managing their pain. I discussed potential benefits and side effects of medication and the serious risk of overdose or even . Patient understands to not drive or operate/engage in heavy or endangering machinery/activities while taking the medication. Patient advised to avoid alcohol, benzodiazepines, opioids or another COMPLIANCE EXAMINER depressant/sedating medications while taking. Concomitant use of [...] is completed. Thank you for the referral. TARYN Coon (Cryan)-C [facility] All questions were answered during the encounter [...] DAGO High 07/18/24 1342 documented in this encounterUniversity Hospitals Lake West Medical CenterRight On Interactive Forest View [id number] Instructions* Patient Instructions* DAGO High - 07/18/2024 [...] before switching to the other temperature. Take wvnh-sun-jciayqi medicines. The use of qqhe-uhl-knpffhm anti-inflammatory medications, creams,ointments and patches can help [...] conditions listed above. When to notify your air quality instrument specialist: If your neck pain or back [...] through Care Everywhere. * Quitting Smoking ED (Cook Islander) documented in this encounterUniversity Hospitals Lake West Medical CenterMission Research11-07-2024 History of Present illness Narrative* Ang Figueroa [...] from lisinopril Chronic pain disorder Colon cancer ([facility]) COPD (chronic obstructive pulmonary disease) ([facility]) Depression Diabetes mellitus type 2, controlled ([facility]) Fibromyalgia, primary Fracture of right hip, closed, initial encounter ([facility]) 01/17/2024 GERD (gastroesophageal reflux disease) Hyperlipidemia Hypertension Insulin-treated type 2 diabetes mellitus ([facility]) Joint pain Kidney stones Liver disease Low back pain Neck pain Obesity Osteoarthritis Visual impairment Past Surgical History: Procedure Laterality Date BACK SURGERY COLON SURGERY resection, 2018, [facility] DAVINCI REPAIR HERNIA VENTRAL N/A 10/27/2021 Performed by Ridge Cedillo MD at [facility] pt had all teeth removed HERNIA REPAIR x's 2 INSERTION INTRAMEDULLARY NAIL FEMUR Right 01/30/2024 Performed by Ang Figueroa MD at [facility] INSERTION INTRAMEDULLARY NAIL FEMUR-TFNA HIP FX Right 01/18/2024 Performed by Ang Figueroa MD at [facility] ORTHOPEDIC SURGERY 2008 foot, infected foot REMOVAL HARDWARE INTRAMEDULLARY NAIL/KATERYNA FEMUR Right 01/30/2024 Performed by Ang Figueroa MD at [facility] Social History Tobacco Use Smoking status: Every [...] Palpation: Non-tender to palpation over lateral joint power line lineman to palpation over medial joint line Stability [...] completeness of the aforementioned history prepared bythe velarde practice provider, and I personally performed the [...] mg/mL) Ang Figueroa MD documented in this encounterUniversity Hospitals Lake West Medical CenterRight On Interactive Forest View [id number] Evaluation note* Diagnosis Onset Date Resolution Status Admit Date Cirrhosis acute June 05, 2024 1:27pm GERD (gastroesophageal reflu x disease) acute June 05 1:27pm Irritable bowel syndrome wit h diarrhea acute June 05 1:27pm [facility] Work Phone: 1(222) 623-498109-05-2024 History of Present illness Narrative* Ang Figueroa [...] x-rays right femur Tom Marquez PA-C I, ANG FIGUEROA MD, personally performed the face to face evaluation on this patient. I discussed with the patient and confirmed the accuracy and completeness of the aforementioned history prepared bythe velarde practice provider, and I personally performed the [...] months Ang Figueroa MD documented in this encounterUniversity Hospitals Lake West Medical CenterFeidee [id number] Miscellaneous Notes* Telephone Encounter - Lorena Red RN - 04/04/2024 7:34 AM EDT Received orthopedic clearance for pt to proceed with Right SI joint inj with MAC sedation. Needs scheduled Needs insurance auth * Telephone Encounter - Nikia Gannon CNA - 04/04/2024 7:34 AM EDT Attempted to schedule. Carlo will call when he is able to schedule documented in this encounterFayette County Memorial Hospital08-22-2024 Telephone encounter Note* Telephone Encounter - Lorena Red RN - 04/04/2024 7:34 AM EDT Received orthopedic clearance for pt to proceed with Right SI joint inj with MAC sedation. Needs scheduled Needs insurance auth [facility]08-22-2024 Telephone encounter Note* Telephone Encounter - Nikia Gannon CNA - 04/04/2024 7:34 AM EDT Attempted to schedule. Carlo will call when he is able to schedule [facility]08-20-2024 History of Present illness Narrative* DAGO Cárdenas - 04/02/2024 12:15 PM EDT [facility] [address] [place] [address] Patient: Ruth Smith Sex: male : 1970 Age: 53 y.o. PCP: TARYN CROUCH 04/02/2024 Ruth Smith is here for a [...] from lisinopril Chronic pain disorder Colon cancer ([facility]) COPD (chronic obstructive pulmonary disease) ([facility]) Depression Diabetes mellitus type 2, controlled ([facility]) Fibromyalgia, primary Fracture of right hip, closed, initial encounter ([facility]) 01/17/2024 GERD (gastroesophageal reflux disease) Hyperlipidemia Hypertension Insulin-treated type 2 diabetes mellitus ([facility]) Joint pain Kidney stones Liver disease Low back pain Neck pain Obesity Osteoarthritis Visual impairment Past Surgical History: Procedure Laterality Date BACK SURGERY COLON SURGERY resection, 2018, [facility] DAVINCI REPAIR HERNIA VENTRAL N/A 10/27/2021 Performed by Ridge Cedillo MD at [facility] pt had all teeth removed HERNIA REPAIR x's 2 INSERTION INTRAMEDULLARY NAIL FEMUR Right 01/30/2024 Performed by Ang Figueroa MD at [facility] INSERTION INTRAMEDULLARY NAIL FEMUR-TFNA HIP FX Right 01/18/2024 Performed by Ang Figueroa MD at [facility] ORTHOPEDIC SURGERY 2008 foot, infected foot REMOVAL HARDWARE INTRAMEDULLARY NAIL/KATERYNA FEMUR Right 01/30/2024 Performed by Ang Figueroa MD at [facility] Allergies Allergen Reactions Insulin Glargine Nausea And [...] 20 min Stress: Stress Concern Present (02/03/2024) [employer] - Occupational Stress Questionnaire Feeling of Stress : To some extent Social Connections: Socially Isolated (02/03/2024) Social Connection and Isolation Panel [NHANES] Frequency of Communication with Friends and Family: Twice a week Frequency of Social Gatherings with Friends and Family: Twice a week Attends Yazidi Services: Never Active Member of Clubs or [...] Lorena Red RN. Provider Statement: I, DAGO CÁRDNEAS, personally performed the services described in the documentation,as scribed by Lorena Red RN in my presence, and it is both accurate and complete. Lorena Red RN 04/02/24 1601 DAGO Cárdenas 04/02/24 1625 documented in this encounterUniversity Hospitals Lake West Medical CenterRight On Interactive Forest View [id number] Instructions* Patient Instructions* Lorena Red RN - [...] the nearest emergency room. documented in this encounterFayette [facility]08-05-2024 History of Present illness Narrative* Tom Marquez [...] and paintreatment needs. Tom Marquez PA-C 03/18/24 4752 documented in this encounterFayette County Memorial Hospital08-01-2024 History of Present illness Narrative* Rehana Retana [...] Retana PA-C 03/14/24 1410 documented in this encounterFayette County Memorial Hospital08-01-2024 Instructions* Patient Instructions* Rehana Retana PA-C - [...] Caltrate 600+D3 [OTC]; Caltrate Gummy Bites [OTC]; [place] Calcium +D [OTC] [DSC]; Liquid Calcium with D3 [OTC]; Liquid Calcium/Vitamin D [OTC]; Os-Evert Calcium + D3 [OTC]; Os-Evert Extra D3 [OTC]; Os-Evert [OTC]; Oysco 500+D [OTC]; Oyster Calcium + D [OTC] [DSC]; Oyster Shell Calcium + D [OTC]; Oyster Shell Calcium + D3 [OTC]; Oyster Shell Calcium 250+D [OTC]; Oyster Shell [id number] + D [OTC]; Oyster Shell Calcium 500+D [...] or approved for treating a specific patient. [employer] and its affiliatesdisclaim any warranty or liability relating to this information or the use thereof. The use of thisinformation is governed by the Terms of Use, available at [email or web address]://[email or web address].[employer]ter[employer]/en/know/thoixtrv-gkwpaswbihxgn-otwrj. Last Reviewed Date 2021-01-06 Copyright 2021 [employer] and its affiliates and/or licensors. All rights reserved. documented in this encounterUniversity Hospitals Lake West Medical CenterFeidee [id number] History of Present illness Narrative* Tom Marquez PA-C - 02/26/2024 11:25 AM EDT Pharmacy called stating they only had 25 tablets available. Patient had a partial fill performed. OARRS report reviewed and acceptable. Prescription for remaining 7 tablets sent to pharmacy. Tom Marquez PA-C 02/26/24 1128 documented in this encounterUniversity Hospitals Lake West Medical CenterFeidee [id number] History of Present illness Narrative* Tom Marquez [...] Marquez PA-C 02/23/24 1259 documented in this encounterUniversity Hospitals Lake West Medical CenterFeidee [id number] History of Present illness Narrative* Ang Figueroa [...] from lisinopril Chronic pain disorder Colon cancer ([facility]) COPD (chronic obstructive pulmonary disease) ([facility]) Depression Diabetes mellitus type 2, controlled ([facility]) Fibromyalgia, primary Fracture of right hip, closed, initial encounter ([facility]) 01/17/2024 GERD (gastroesophageal reflux disease) Hyperlipidemia Hypertension Insulin-treated type 2 diabetes mellitus ([facility]) Joint pain Kidney stones Liver disease Low back pain Neck pain Obesity Osteoarthritis Visual impairment Past Surgical History: Procedure Laterality Date BACK SURGERY COLON SURGERY resection, 2018, [facility] DAVINCI REPAIR HERNIA VENTRAL N/A 10/27/2021 Performed by Ridge Cedillo MD at [facility] DENTAL SURGERY pt had all teeth removed HERNIA REPAIR x's 2 INSERTION INTRAMEDULLARY NAIL FEMUR Right 01/30/2024 Performed by Ang Figueroa MD at [facility] INSERTION INTRAMEDULLARY NAIL FEMUR-TFNA HIP FX Right 01/18/2024 Performed by Ang Figueroa MD at [facility] ORTHOPEDIC SURGERY 2008 foot, infected foot REMOVAL HARDWARE INTRAMEDULLARY NAIL/KATERYNA FEMUR Right 01/30/2024 Performed by Ang Figueroa MD at [facility] Social History Tobacco Use Smoking status: Every [...] completeness of the aforementioned history prepared bythe velarde practice provider, and I personally performed the clinical examination of the patient. I discussed the treatment plan with the patient. Returned to follow up today after after revision hip fracture surgical intervention. He has but 3 weeks out from this. Franklin removed Steri-Strips were placed. He is on [...] MD. Ang Figueroa MD documented in this encounterFayette County [facility] Hospital07-08-2024 History of Present illness Narrative* Tom Marquez [...] Marquez PA-C 02/19/24 1355 documented in this encounterFayette County Memorial Hospital07-01-2024 Miscellaneous Notes* Telephone Encounter - HUBERT Sylvester [...] be refilled on 02/16/2024. documented in this encounterUniversity Hospitals Lake West Medical CenterRight On Interactive Forest View [id number] Telephone encounter Note* Telephone Encounter - HUBERT [...] This medication can be refilled on 02/16/2024. [facility] HospitalPoly [id number] History of Present illness Narrative* Edie Arreola [...] Post-Op Status post- Procedure(s): REMOVAL HARDWARE INTRAMEDULLARY NAIL/AKTERYNA FEMUR (Right) - Wound Class: Clean Contaminated [...] Initial Rehab Facility Preadmission Screening Sending facility: [facility] Room number: A729/01 Date of admission to hospital: 01/29/2024 PCP: Jd Du PA-C Primary insurance: Payor: MEDICARE / Plan: MEDICARE PART A & B / Product Type: *No Product type* / Policy #: [id number] - (Medicare) Secondary insurance: N/A Address: [address] [place] [address] (home) : 1970 Age: 53 y.o. Race: White or [1] Emergency contact: Extended Emergency Contact Information Primary Emergency Contact: Yvonne Martinez Mobile Relation: Mother Preferred language: Cook Islander Director Digital Catalogue needed? No Secondary Emergency Contact: Rakel Lira Mobile Relation: Relative Marital status: Single [1] Rehab Diagnosis/Primary condition that led to the patient's admission (C): Ruth Smith is a 53 y.o. male whose primary indication for inpatient rehabilitation is: Orthopedic Disorders: 03.24 Status Post Unilateral Hip Fracture Etiologic Diagnosis: Right periprosthetic subtrochanteric fx Patient presented to [facility] on 01/17/2024 with Right hip pain, reports he tripped over a dog & landed on his R knee. Imaging revealed a right IT nondisplaced fx. 01/18/2024 s/p IM nailing with dr Figueroa 01/22/2024 transferred to [facility] 01/29/2024 Patient was doing well postoperatively but [...] & f/u with ortho recommending transfer to [facility] 01/30/2024 s/p IM nailing & removal of right femur hardware with Dr Figueroa 02/01/2024 concern of right thigh swelling- ortho evaluated & noted Right leg edematous, but allcompartments soft and compressible 02/02/2024 continues to have increased pain to the RLE- dopplers pending Comorbidities/Medical issues requiring further interdisciplinary management at [facility]: Right IT nondisplaced fx WBAT Right periprosthetic [...] Closed displaced intertrochanteric fracture of right femur ([facility] Closed fracture of right hip, initial encounter ([facility]) Hip fx ([facility]) Difficulty in walking Type 2 diabetes mellitus with circulatory disorder, with long-term current use of insulin ([facility]) Primary hypertension Class 1 obesity due to excess calories with serious comorbidity and body mass index (BMI) of 31.0 to 31.9 in adult BPH (benign prostatic hyperplasia) Myah-prosthetic fracture around prosthetic hip Past Medical History: Diagnosis Date Asthma Back pain Chronic cough from lisinopril Chronic pain disorder Colon cancer ([facility]) COPD (chronic obstructive pulmonary disease) ([facility]) Depression Diabetes mellitus type 2, controlled ([facility]) Fibromyalgia, primary Fracture of right hip, closed, initial encounter ([facility]) 01/17/2024 GERD (gastroesophageal reflux disease) Hyperlipidemia Hypertension Insulin-treated type 2 diabetes mellitus ([facility]) Joint pain Kidney stones Liver disease Low back pain Neck pain Obesity Osteoarthritis Visual impairment Past Surgical History: Procedure Laterality Date BACK SURGERY COLON SURGERY resection, 2018, [facility] DAVINCI REPAIR HERNIA VENTRAL N/A 10/27/2021 Performed by Ridge Cedillo MD at [facility] pt had all teeth removed HERNIA REPAIR x's 2 INSERTION INTRAMEDULLARY NAIL FEMUR Right 01/30/2024 Performed by Ang Figueroa MD at [facility] INSERTION INTRAMEDULLARY NAIL FEMUR-TFNA HIP FX Right 01/18/2024 Performed by Ang Figueroa MD at [facility] ORTHOPEDIC SURGERY 2008 foot, infected foot REMOVAL HARDWARE INTRAMEDULLARY NAIL/KATERYNA FEMUR Right 01/30/2024 Performed by Ang Figueroa MD at [facility] Ongoing Medical Management Needs: Patient risk factors [...] tablet 1,000 mcg 1,000 mcg oral Daily DOV MedranoMANAGER UNIVERSAL 1,000 mcg at 02/02/24 0839 cyclobenzaprine (FLEXERIL) [...] tablet 1 mg 1 mg oral Daily DOV MedranoMANAGER UNIVERSAL 1 mg at 02/02/24 0841 gabapentin (NEURONTIN) [...] Jalen Gan MD 1 mg at 02/01/24 211 hyoscyamine sulfate (LEVSIN) tablet 125 mcg 125 [...] 50 mg 50 mg oral Nightly Demond Fraizer MD 50 mg at 02/01/242015 O2 Level SpO2: 96 % (02/02/24 1152) O2 Device: None (Room air) (02/02/24 1152) O2 Flow Rate (L/min): 0 L/min (02/02/24 1152) Pain Assessment: 0-10 (02/02/24 08) Pain Score: 7 (02/02/24 1300) Pain Type: [...] Wound Assessment: Skin: Skin Color: Pale, Red (02/02/24 0800) Skin Temp: Warm, Dry (02/02/24 08) Skin Integrity: Bruising, Swelling (02/02/24 08) risk: turn and position every 2 hours and pressure relief every 20 minutes while up in chair, active wound: yes Dialysis? No Language/Cognition: Cook Islander [22] Hearing / Speech / Vision Hearing: [...] ability Score: 60 Additional precautions: Precautions: Fall (02/02/24 08) Cultural considerations: N/A Director Digital Catalogue needed? No [2] BP 123/73 Pulse 88 [...] 0 (01/31/24 1600) Last BM Date: 01/31/24 (02/02/24799) Level of function prior to event/condition leading to need for intensive rehabilitation therapy: Prior Function Lives With: Alone (01/31/24904) Receives Help From: Neighbor (01/31/24904) Level of Mobility: Independent with ADLs and functional transfers or gait (01/31/24904) Homemaking Assistance: Independent (Except for driving) (01/31/24904) Driving: Total assist (01/31/24903) Other: Prior to injury pt completely independent without devices. He had been at [facility] just prior to this adm and amb [...] to Chair: Min assist (of 2) (02/01/24 100) Other: Patient cued for hand placement/technique for [...] chair (01/31/24904) Home Equipment: Rolling walker, Cane, Information Technology Program Manager (01/31/24904) Other : No AE/DME needs prior [...] Closed fracture of right hip, initial encounter ([facility]) Active Problems: Myah-prosthetic fracture around prosthetic hip [...] Closed fracture of right hip, initial encounter ([facility]) Active Problems: Myah-prosthetic fracture around prosthetic hip [...] Initial Rehab Facility Preadmission Screening Sending facility: [facility] Room number: A729/01 Date of admission to hospital: 01/29/2024 PCP: Jd Du PA-C Primary insurance: Payor: MEDICARE / Plan: MEDICARE PART A & B / Product Type: *No Product type* / Policy #: [id number] - (Medicare) Secondary insurance: N/A Address: [facility] [place] [address] (home) : 1970 Age: 53 y.o. Race: White or [1] Emergency contact: Extended Emergency Contact Information Primary Emergency Contact: VickeytrinhYvonne Mobile Relation: Mother Preferred language: Cook Islander Director Digital Catalogue needed? No Secondary Emergency Contact: Rakel Lira Mobile Relation: Relative Marital status: Single [1] Rehab Diagnosis/Primary condition that led to the patient's admission (IGC): Ruth Smith is a 53 y.o. male whose primary indication for inpatient rehabilitation is: Orthopedic Disorders: 03.24 Status Post Unilateral Hip Fracture Etiologic Diagnosis: Right periprosthetic subtrochanteric fx Patient presented to [facility] on 01/17/2024 with Right hip pain, reports he tripped over a dog & landed on his R knee. Imaging revealed a right IT nondisplaced fx. 01/18/2024 s/p IM nailing with dr Figueroa 01/22/2024 transferred to [facility] 01/29/2024 Patient was doing well postoperatively but [...] & f/u with ortho recommending transfer to [facility] 01/30/2024 s/p IM nailing & removal of right femur hardware with Dr Figueroa Comorbidities/Medical issues requiring further interdisciplinary management at [facility]: Right IT nondisplaced fx WBAT Right periprosthetic [...] Closed displaced intertrochanteric fracture of right femur ([facility]) Closed fracture of right hip, initial encounter ([facility]) Hip fx ([facility]) Difficulty in walking Type 2 diabetes mellitus with circulatory disorder, with long-term current use of insulin ([facility]) Primary hypertension Class 1 obesity due to excess calories with serious comorbidity and body mass index (BMI) of 31.0 to 31.9 in adult BPH (benign prostatic hyperplasia) Myah-prosthetic fracture around prosthetic hip Past Medical History: Diagnosis Date Asthma Back pain Chronic cough from lisinopril Chronic pain disorder Colon cancer ([facility]) COPD (chronic obstructive pulmonary disease) ([facility]) Depression Diabetes mellitus type 2, controlled ([facility]) Fibromyalgia, primary Fracture of right hip, closed, initial encounter ([facility]) 01/17/2024 GERD (gastroesophageal reflux disease) Hyperlipidemia Hypertension Insulin-treated type 2 diabetes mellitus ([facility]) Joint pain Kidney stones Liver disease Low back pain Neck pain Obesity Osteoarthritis Visual impairment Past Surgical History: Procedure Laterality Date BACK SURGERY COLON SURGERY resection, 2018, [facility] DAVINCI REPAIR HERNIA VENTRAL N/A 10/27/2021 Performed by Ridge Cedillo MD at [facility] pt had all teeth removed HERNIA REPAIR x's 2 INSERTION INTRAMEDULLARY NAIL FEMUR Right 01/30/2024 Performed by Ang Figueroa MD at [facility] INSERTION INTRAMEDULLARY NAIL FEMUR-TFNA HIP FX Right 01/18/2024 Performed by Ang Figueroa MD at [facility] ORTHOPEDIC SURGERY 2008 foot, infected foot REMOVAL HARDWARE INTRAMEDULLARY NAIL/KATERYNA FEMUR Right 01/30/2024 Performed by Ang Figueroa MD at [facility] Ongoing Medical Management Needs: Patient risk factors [...] mcg 1,000 mcg oral Daily Marsha Flores APRN-MANAGER UNIVERSAL 1,000 mcg at 02/01/24 0804 cyclobenzaprine (FLEXERIL) [...] mg 1 mg oral Daily Marsha Flores APRN-MANAGER UNIVERSAL 1 mg at 02/01/24 0804 gabapentin (NEURONTIN) [...] Units 1-5 Units subcutaneous TID with meals Demodn Frazier MD 5 Units at 01/31/24 1823 [...] 02/01/24 0037 O2 Level SpO2: 90 % (02/01/24 0810) O2 Device: None (Room air) (02/01/24 0810) O2 Flow Rate (L/min): 0 L/min (02/01/24 0810) Pain Assessment: 0-10 (02/01/24 0911) Pain Score: 10 (02/01/24 0949) Pain Type: Acute pain, Surgical pain (02/01/24 08) Pain Location: Hip, Leg (02/01/24 08) Pain Orientation: Right (02/01/24 08) Pain Radiating Towards: to knee (02/01/24 08) Pain Descriptors: Sharp, Shooting (02/01/24 08) Pain Frequency: Constant/continuous (02/01/24810) Pain Onset: Ongoing [...] chair, active wound: yes Dialysis? No Language/Cognition: Cook Islander [22] Hearing / Speech / Vision Hearing: [...] precautions: Precautions: Fall (01/31/241939) Cultural considerations: N/A Director Digital Catalogue needed? No [2] BP 121/73 Pulse 75 [...] independent without devices. He had been at [facility] just prior to this adm and amb [...] chair (01/31/24904) Home Equipment: Rolling walker, Cane, Information Technology Program Manager (01/31/24904) Other : No AE/DME needs prior [...] arrangements made ANG FIGUEROA MD * Leatha Mcguire MD - 01/31/2024 7:40 AM EDT 01/31/2024 Patient Name: Ruth Smith : 1970 Code status: Problem List: Principal Problem: Closed fracture of right hip, initial encounter ([facility]) Active Problems: Myah-prosthetic fracture around [...] ATTESTATION: I, ANG FIGUEROA MD, had a [id number] encounter with this patient and completed sharma [...] Closed fracture of right hip, initial encounter ([facility]) Active Problems: Myah-prosthetic fracture around prosthetic hip [...] prophylaxis Monitor patient closely. documented in this encounterFayette County [facility] Hospital06-22-2024 Progress note* Discharge Planning Note - Sisi Morse RN - 02/03/2024 11:03 AM EDT DISCHARGE PLANNING NOTE Case discussed in daily transition rounds and chart reviewed by CN. Barriers to discharge include none. Discharge Plan remains: Patient to transport to [facility] at 2pm today. CRF sent. CN will continue to follow and is available should any further needs arise. - Sisi Morse RN 02/03/24 11:03 AM [facility]06-22-2024 Miscellaneous Notes* Discharge Planning Note - Sisi Morse RN - 02/03/2024 11:03 AM EDT DISCHARGE PLANNING NOTE Case discussed in daily transition rounds and chart reviewed by CN. Barriers to discharge include none. Discharge Plan remains: Patient to transport to [facility] at 2pm today. CRF sent. CN will continue to follow and is available should any further needs arise. - Sisi Morse RN 02/03/24 11:03 AM * PT/OT/MARKETING INFORMATION ANALYST - NALLELY Meneses - 02/03/2024 9:51 AM [...] belt, RW Weight Bearing Status: WBAT RLE Telemetry/Surgical Endoscopist: Yes Other: fall risk Pain Assessment Pain [...] Katlin Goins SERVIN/L Progressing 02/02/24 0953 WILLARD Banda/L Not Progressing 02/01/24 1548 Azul Mitchell, SERVIN/L Progressing 02/01/24 1328 Azul Mitchell, SERVIN/L Not Progressing 01/31/24 1609 Azul Mitchell, SERVIN/L Progressing Goal Note filed on 02/02/24 0953 by Ludy Ireland OTR/Lanie Evaluation of progress towards goal: Problem: Bed Mobility Dates: Start: 01/31/24 Disciplines: OT Goal: Patient will perform bed mobility with Modified Shoshone Dates: Start: 01/31/24 Expected End: 02/28/24 Description: Goal Description: Disciplines: OT Outcomes Date/Time User Outcome 02/01/24 1328 Azul Mitchell, SERVIN/L Progressing Goal Note filed on 02/01/24 1328 by Azul Medrano SERVIN/L Evaluation of progress towards goal: Problem: Functional Mobility Dates: Start: 01/31/24 Disciplines: OT Goal: Patient will perform functional mobility with Modified [place]one Dates: Start: 01/31/24 Expected End: 02/28/24 Description: [...] Katlin Goins, SERVIN/L Progressing 02/02/24 0953 WILLARD Banda/Lanei Progressing 02/01/24 1548 Azul Mitchell, SERVIN/L Progressing [...] SERVIN/L Not Progressing 01/31/24 1609 Azul Mitchell, SREVIN/L Progressing Goal Note filed on 02/02/24 0953 by Ludy Ireland OTR/Lanei Evaluation of progress towards goal: Problem: Strength Dates: Start: 01/31/24 Disciplines: OT Goal: Improve strength Dates: Start: 01/31/24 Expected End: 02/28/24 Description: Of extremity/ location: Tolerate bilat UE exercises to increase strength and endurancefor self care tasks To facilitate: Disciplines: OT Outcomes Date/Time User Outcome 02/03/24 0944 Katlin Goins, SERVIN/L Progressing 02/01/24 1548 Azul Medrano, SERVIN/L Progressing 01/31/24 1609 Azlu Mitchell, SERVIN/L Not Progressing Goal Note filed on 02/01/24 1548 by Azul Medrano SERVIN/L Evaluation of progress towards goal: Problem: Transfers Dates: Start: 01/31/24 Disciplines: OT Goal: Patient will perform transfers with Modified [place] Dates: Start: 01/31/24 Expected End: 02/28/24 Description: Goal Description: Disciplines: OT Outcomes Date/Time User Outcome 02/03/24 0944 Katlin Goins, SERVIN/L Progressing 02/02/24 0953 Ludy Ireland OTR/Lanie Progressing 02/01/24 1548 Azul Mitchell, SERVIN/L Progressing 02/01/24 1328 CHARU NielsenA/Lanie Not Progressing 01/31/24 1609 CHARU NielsenA/L Progressing Goal Note filed on 02/02/24 0953 by WILLARD Banda/Lanie Evaluation of progress towards goal: Occupational Therapy Care Plan (Resolved) There are no resolved problems. Principal Problem: Closed fracture of right hip, initial encounter ([facility]) Active Problems: Myah-prosthetic fracture around [...] Description: INTERVENTIONS: 1. Encourage patient or legal provider relations representative to report early pain and ask [...] per policy 9. Teach patient or legal provider relations representative interventions for comforting Outcome: Progressing Note: [...] Score of =/> 25 or indicated by [facility] Re[facility] Assessment Goal: Patient should be free from fall Description: Interventions: 1. [place] to environment 2. Hourly rounds addressing the [...] non-skid footwear 11. Teach patient and patient provider relations representative to maintain environment for safety and [...] (cane, walker) within reach 19. Request patient provider relations representative bring adaptive equipment/mobility aids from home or obtain and provide as needed 20. Consult pharmacy regarding effects of med's affecting mobility, cognition, and alternatives 21. Obtain physician order for PT if risk factors associated with mobility are present 22. Obtain physician order for OT as appropriate 23. Utilize diversional activities 24. Educate patient and patient provider relations representative how to maintain a safe environment during visitationtimes (notify nurse prior to leaving bedside) 25. Consider appropriateness of medical or non-biomedical engineering technician 26. Set up voiding schedule as appropriate [...] hygiene technique 7. Identify and instruct patient/patient provider relations representative in use of appropriate isolation precautionsfor identified infection/symptoms 8. Provide and discuss with patient/patient provider relations representative on educational MDRO sheet 9. Encourage and monitor nutritional status daily and consult validation manager if indicated 10. Implement neutropenic guidelines as [...] this time. Problem: Knowledge Deficit Goal: Patient/patient provider relations representative demonstrates understanding of disease process, treatment [...] transport via PTN confirmed in [facility] to [facility] 6.22.24 at 2:00pm. * PT/OT/MARKETING INFORMATION ANALYST - Ludy Ireland OTR/L - 02/02/2024 2:02 PM EDT Occupational Therapy CANCEL - Deferred Pt currently off floor for RLE dopplers. Will continue POC as able. * PT/OT/MARKETING INFORMATION ANALYST - Nas Lima PTA - 02/02/2024 2:00 [...] Description: INTERVENTIONS: 1. Encourage patient or legal provider relations representative to report early pain and ask [...] per policy 9. Teach patient or legal provider relations representative interventions for comforting Outcome: Progressing Note: [...] at the bedside 7. Instruct patient/ patient provider relations representative about use of safety devices 8. Include patient/ patient provider relations representative in decisions related to safety Outcome: [...] hygiene technique 7. Identify and instruct patient/patient provider relations representative in use of appropriate isolation precautionsfor identified infection/symptoms 8. Provide and discuss with patient/patient provider relations representative on educational MDRO sheet 9. Encourage and monitor nutritional status daily and consult validation manager if indicated 10. Implement neutropenic guidelines as needed 11. Review exposure to history of communicable disease and recent travel history on admission 12. Encourage annual influenza vaccine 13. Encourage pneumonia vaccine Outcome: Progressing Note: Evaluation of progress towards goal: Skin integrity remains in stable condition; remains w/o ss of infection, fever, pain, or increased discomfort. Problem: Knowledge Deficit Goal: Patient/patient provider relations representative demonstrates understanding of disease process, treatment [...] supplement as ordered 13. Collaborate with clinical validation manager 14. Include patient/ patient's provider relations representative in decisions related to nutrition Outcome: [...] discharge planning process 5. Communicate referral to natural resources extension educator as appropriate 6. Communicate referral to validation manager as appropriate 7. Collaborate with case management/social contact worker for discharge needs Outcome: Progressing Note: Evaluation of progress towards goal: Discharge planning in process; will continue to monitor for discharge needs. Problem: Moderate - High Risk Fall Score Description: Arredondo Fall Score of =/> 25 or indicated by [facility] Assessment Goal: Patient should be free from fall Description: Interventions: 1. [place] to environment 2. Hourly rounds addressing the [...] non-skid footwear 11. Teach patient and patient provider relations representative to maintain environment for safety and [...] (cane, walker) within reach 19. Request patient provider relations representative bring adaptive equipment/mobility aids from home or obtain and provide as needed 20. Consult pharmacy regarding effects of med's affecting mobility, cognition, and alternatives 21. Obtain physician order for PT if risk factors associated with mobility are present 22. Obtain physician order for OT as appropriate 23. Utilize diversional activities 24. Educate patient and patient provider relations representative how to maintain a safe environment during visitationtimes (notify nurse prior to leaving bedside) 25. Consider appropriateness of medical or non-biomedical engineering technician 26. Set up voiding schedule as appropriate [...] - JEWEL HARRINGTON 02/02/24 12:06 PM * PT/OT/MARKETING INFORMATION ANALYST - Nas Lima PTA - 02/02/2024 8:13 [...] belt, RW Weight Bearing Status: WBAT RLE Telemetry/Surgical Endoscopist: Yes Other: fall risk Pain Assessment Pain [...] Date/Time User Outcome 02/02/24 0937 Nas Lima, PROPERTY MANAGEMENT ASSISTANT Not Progressing 02/01/24 1525 Nick Fernandez PTA [...] Date/Time User Outcome 02/02/24 0937 Nas Lima, PROPERTY MANAGEMENT ASSISTANT Not Progressing 02/01/24 1525 Nick Fernandez, SHERYL [...] Date/Time User Outcome 02/02/24 0937 Nas Lima, PROPERTY MANAGEMENT ASSISTANT Progressing 02/01/24 1525 Nick Fernandez PTA Progressing [...] Closed fracture of right hip, initial encounter ([facility]) Active Problems: Myah-prosthetic fracture around prosthetic hip Associated attestation - Carlos Brar PT - 02/02/2024 3:00 PM EDT I have reviewed and agree with this note and education documentation for this visit. * PT/OT/MARKETING INFORMATION ANALYST - Ludy Ireland OTR/L - 02/02/2024 8:13 AM EDT Occupational Therapy [...] None Scoring Daily Activity Raw Score: 18 [facility] G Code Modifier: CK OT Treatment/Interventions: ADL [...] belt Weight Bearing Status: WBAT Rt LE Telemetry/Surgical Endoscopist: Yes Oxygen Used: room air Other: fall [...] Patient will perform bed mobility with Modified Shoshone Dates: Start: 01/31/24 Expected End: 02/28/24 Description: Goal Description: Disciplines: OT Outcomes Date/Time User Outcome 02/01/24 1328 Azul Mitchell, SERVIN/L Progressing Goal Note filed on 02/01/24 1328 by Azul Mitchell, SERVIN/L Evaluation of progress towards goal: Problem: Functional Mobility Dates: Start: 01/31/24 Disciplines: OT Goal: Patient will perform functional mobility with Modified Shosh[place] Dates: Start: 01/31/24 Expected End: 02/28/24 Description: [...] Outcomes Date/Time User Outcome 02/02/24 0953 WILLARD Banda/L Progressing 02/01/24 1548 Azul Mitchell, SERVIN/L Progressing [...] Goal: Patient will perform transfers with Modified [place]oshone Dates: Start: 01/31/24 Expected End: 02/28/24 Description: Goal Description: Disciplines: OT Outcomes Date/Time User Outcome 02/02/24 0953 Ludy Ireland OTR/L Progressing 02/01/24 1548 Azul Mitchell, SERVIN/L Progressing 02/01/24 1328 Azul Mitchell, SERVIN/L Not Progressing 01/31/24 1609 Azul Mitchell, SERIVN/L Progressing Goal Note filed on 02/02/24 0953 by Ludy Ireland OTR/Lanie Evaluation of progress towards goal: Occupational Therapy Care Plan (Resolved) There are no resolved problems. Principal Problem: Closed fracture of right hip, initial encounter ([facility]) Active Problems: Myah-prosthetic fracture around prosthetic hip * Plan of Care - Lacey Singer RN - 02/01/2024 10:15 PM EDT Problem: Pain Goal: Patient goal is pain score less than 4, able to rest, and participant in treatment plan as appropriate Description: INTERVENTIONS: 1. Encourage patient or legal provider relations representative to report early pain and ask [...] per policy 9. Teach patient or legal provider relations representative interventions for comforting Outcome: Progressing Note: [...] at the bedside 7. Instruct patient/ patient provider relations representative about use of safety devices 8. Include patient/ patient provider relations representative in decisions related to safety Outcome: Progressing Note: Evaluation of progress towards goal: Assessed patient's risk for falls and implemented fall prevention plan of care per policy. Provided and maintained a safe environment. Pt remains free from falls and injury during this stay. * PT/OT/MARKETING INFORMATION ANALYST - NALLELY Nielsen - 02/01/2024 3:49 PM [...] RW Weight Bearing Status: WBAT Rt LE Telemetry/Surgical Endoscopist: Yes Oxygen Used: room air Other: fall [...] Patient will perform bed mobility with Modified Shoshone Dates: Start: 01/31/24 Expected End: 02/28/24 Description: Goal Description: Disciplines: OT Outcomes Date/Time User Outcome 02/01/24 1328 Azul Mitchell, SERVIN/L Progressing Goal Note filed on 02/01/24 1328 by NALLELY Nielsen Evaluation of progress towards goal: Problem: Functional Mobility Dates: Start: 01/31/24 Disciplines: OT Goal: Patient will perform functional mobility with Modified [place]oshone Dates: Start: 01/31/24 Expected End: 02/28/24 Description: Goal Description: Disciplines: OT Outcomes Date/Time User Outcome 02/01/24 1548 Azul Mitchell, SERVIN/L Progressing 02/01/24 1328 Azul Mitchell, SERVNI/L Not Progressing 01/31/24 1609 Azul Mitchell, SERVIN/L [...] OT Outcomes Date/Time User Outcome 02/01/24 1548 MALATHI Nielsen/Lanie Progressing 01/31/24 1609 CHARU NielsenA/Lanie Not Progressing Goal Note filed on 02/01/24 1548 by MALATHI Nielsen/Lanie Evaluation of progress towards goal: Problem: Transfers Dates: Start: 01/31/24 Disciplines: OT Goal: Patient will perform transfers with Modified Shoshone Dates: Start: 01/31/24 Expected End: 02/28/24 Description: Goal Description: Disciplines: OT Outcomes Date/Time User Outcome 02/01/24 1548 MALATHI Nielsen/Lanie Progressing 02/01/24 1328 CHARU NielsenA/Lanie Not Progressing 01/31/24 1609 CHARU NielsenA/Lanie Progressing Goal Note filed on 02/01/24 1548 by MALATHI Nielsen/Lanie Evaluation of progress towards goal: Occupational Therapy Care Plan (Resolved) There are no resolved problems. Principal Problem: Closed fracture of right hip, initial encounter ([facility]) Active Problems: Myah-prosthetic fracture around prosthetic hip Associated attestation - Ludy Ireland OTR/L - 02/02/2024 7:41 AM EDT I have reviewed and agree with this note and education documentation for this visit. * PT/OT/MARKETING INFORMATION ANALYST - Nick Fernandez PTA - 02/01/2024 3:39 [...] RW Weight Bearing Status: WBAT Rt LE Telemetry/Surgical Endoscopist: Yes Oxygen Used: room air Other: fall [...] Closed fracture of right hip, initial encounter ([facility]) Active Problems: Myah-prosthetic fracture around prosthetic hip Associated attestation - Lindsay Infante, PT - 02/01/2024 3:54 PM EDT I have reviewed and agree with this note and education documentation for this visit. * PT/OT/MARKETING INFORMATION ANALYST - MALATHI Nielsen/Lanie - 02/01/2024 1:29 PM [...] None Scoring Daily Activity Raw Score: 17 [facility] G Code Modifier: CK OT Treatment/Interventions: [...] RW Weight Bearing Status: WBAT Rt LE Telemetry/Surgical Endoscopist: Yes Oxygen Used: room air Other: fall [...] Patient will perform bed mobility with Modified Shoshone Dates: Start: 01/31/24 Expected End: 02/28/24 Description: Goal Description: Disciplines: OT Outcomes Date/Time User Outcome 02/01/24 1328 MALATHI Nielsen/Lanie Progressing Goal Note filed on 02/01/24 1328 by MALATHI Nielsen/L Evaluation of progress towards goal: Problem: Functional Mobility Dates: Start: 01/31/24 Disciplines: OT Goal: Patient will perform functional mobility with Modified Shoshone Dates: Start: 01/31/24 Expected End: 02/28/24 Description: [...] Goal: Patient will perform transfers with Modified Shosh[place] Dates: Start: 01/31/24 Expected End: 02/28/24 Description: Goal Description: Disciplines: OT Outcomes Date/Time User Outcome 02/01/24 1328 NALLELY Nielsen Not Progressing 01/31/24 1609 NALLELY Nielsen Progressing Goal Note filed on 02/01/24 1328 by NALLELY Nielsen Evaluation of progress towards goal: Occupational Therapy Care Plan (Resolved) There are no resolved problems. Principal Problem: Closed fracture of right hip, initial encounter ([facility]) Active Problems: Myah-prosthetic fracture around prosthetic hip Associated attestation - Ludy Ireland OTR/L - 02/01/2024 2:58 PM EDT I have reviewed and agree with this note and education documentation for this visit. * PT/OT/MARKETING INFORMATION ANALYST - Nick Fernandez PTA - 02/01/2024 11:57 [...] 6 Clicks: Basic Mobility Raw Score: 11 [facility] G Code Modifier: CL Patient Response to [...] Weight Bearing Status: (P) WBAT Rt LE Telemetry/Surgical Endoscopist: (P) Yes Oxygen Used: (P) room air [...] Closed fracture of right hip, initial encounter ([facility]) Active Problems: Myah-prosthetic fracture around [...] Description: INTERVENTIONS: 1. Encourage patient or legal provider relations representative to report early pain and ask [...] per policy 9. Teach patient or legal provider relations representative interventions for comforting Outcome: Progressing Note: [...] at the bedside 7. Instruct patient/ patient provider relations representative about use of safety devices 8. Include patient/ patient provider relations representative in decisions related to safety Outcome: [...] Description: INTERVENTIONS: 1. Encourage patient or legal provider relations representative to report early pain and ask [...] per policy 9. Teach patient or legal provider relations representative interventions for comforting Outcome: Progressing Note: [...] at the bedside 7. Instruct patient/ patient provider relations representative about use of safety devices 8. Include patient/ patient provider relations representative in decisions related to safety Outcome: [...] hygiene technique 7. Identify and instruct patient/patient provider relations representative in use of appropriate isolation precautionsfor identified infection/symptoms 8. Provide and discuss with patient/patient provider relations representative on educational MDRO sheet 9. Encourage and monitor nutritional status daily and consult validation manager if indicated 10. Implement neutropenic guidelines as needed 11. Review exposure to history of communicable disease and recent travel history on admission 12. Encourage annual influenza vaccine 13. Encourage pneumonia vaccine Outcome: Progressing Note: Evaluation of progress towards goal: Pt afebrile at this time, continue to monitor for signs infection Problem: Knowledge Deficit Goal: Patient/patient provider relations representative demonstrates understanding of disease process, treatment plan,medications, and discharge instructions Description: INTERVENTIONS 1. Complete learning assessment and assess knowledge base 2. Provide teaching at level of understanding 3. Provide teaching via preferred learning method(s) Outcome: Progressing Note: Evaluation of progress towards goal: POC discussed with patient. Questions answered PRN. * PT/OT/MARKETING INFORMATION ANALYST - NALLELY Nielsen 01/31/2024 4:10 PM EDT [...] RW Weight Bearing Status: WBAT Rt LE Telemetry/Surgical Endoscopist: Yes Oxygen Used: room air Other: fall [...] Patient will perform bed mobility with Modified [place] Dates: Start: 01/31/24 Expected End: 02/28/24 Description: Goal Description: Disciplines: OT Problem: Functional Mobility Dates: Start: 01/31/24 Disciplines: OT Goal: Patient will perform functional mobility with Modified [place] Dates: Start: 01/31/24 Expected End: 02/28/24 Description: [...] Goal: Patient will perform transfers with Modified [place] Dates: Start: 01/31/24 Expected End: 02/28/24 Description: Goal Description: Disciplines: OT Outcomes Date/Time User Outcome 01/31/24 1609 NALLELY Nielsen Progressing Goal Note filed on 01/31/24 1609 by NALLELY Nielsen Evaluation of progress towards goal: Occupational Therapy Care Plan (Resolved) There are no resolved problems. Principal Problem: Closed fracture of right hip, initial encounter ([facility]) Active Problems: Myah-prosthetic fracture around prosthetic hip Associated attestation - Ludy Ireland OTR/L - 02/01/2024 7:28 AM EDT I have reviewed and agree with this note and education documentation for this visit. * PT/OT/MARKETING INFORMATION ANALYST - Nick Fernandez PTA - 01/31/2024 3:56 [...] RW Weight Bearing Status: WBAT Rt LE Telemetry/Surgical Endoscopist: Yes Oxygen Used: room air Other: fall [...] Closed fracture of right hip, initial encounter ([facility]) Active Problems: Myah-prosthetic fracture around prosthetic hip Associated attestation - Lindsay Infante, PT - 01/31/2024 4:14 PM EDT I have reviewed and agree with this note and education documentation for this visit. * Discharge Planning Note - Alexandra Eric - 01/31/2024 3:48 PM EDT DISCHARGE PLANNING NOTE Referral sent to [facility], a division of [facility] P# [phone] [calling report];/[facility] (P# [calling report]; F# ) * Discharge Planning Note - JEWEL Crenshaw - 01/31/2024 3:13 PM EDT Images from the original note were not included. DISCHARGE PLANNING NOTE SW met with patient introduce self & role. Pt [facility] to SW [facility] Pt underwent IM nail on 01/18/24 and pt discharged to IP rehab on 01/22/24. Pt was transferred back to [facility] on 01/28 after fall at rehab facility. [...] and pt would like to return to [facility] rehab. Referral was sent, await confirmation they can accept pt back. Services Requested: Services Requested Acute Rehab Name: [facility] . Patient choice offered: Other (comment) (pt current with provider) List Provided: Other (comment) Initial DC Assessment Completed: Yes Patient Goals: Goals: Goals <enter goal here> (pt-stated) Evaluation of progress towards goal: pt plans to return to [facility] rehab at [place] to improve mobility and get home (pt-stated) Evaluation of progress towards goal: Participating in therapy - JEWEL Crenshaw 01/31/24 3:18 PM * PT/OT/MARKETING INFORMATION ANALYST - Lindsay Infante, PT - 01/31/2024 1:02 [...] from lisinopril Chronic pain disorder Colon cancer ([facility]) COPD (chronic obstructive pulmonary disease) ([facility] [place]) Depression Diabetes mellitus type 2, controlled ([facility] [place]) Fibromyalgia, primary Fracture of right hip, closed, initial encounter ([facility]) 01/17/2024 GERD (gastroesophageal reflux disease) Hyperlipidemia Hypertension Insulin-treated type 2 diabetes mellitus ([facility] [place]) Joint pain Kidney stones Liver disease Low back pain Neck pain Obesity Osteoarthritis Visual impairment Past Surgical History: Procedure Laterality Date BACK SURGERY COLON SURGERY resection, 2018, [facility] DAVINCI REPAIR HERNIA VENTRAL N/A 10/27/2021 Performed by Ridge Cedillo MD at [facility] pt had all teeth removed HERNIA REPAIR x's 2 INSERTION INTRAMEDULLARY NAIL FEMUR Right 01/30/2024 Performed by Ang Figueroa MD at [facility] INSERTION INTRAMEDULLARY NAIL FEMUR-TFNA HIP FX Right 01/18/2024 Performed by Ang Figueroa MD at [facility] ORTHOPEDIC SURGERY 2008 foot, infected foot REMOVAL HARDWARE INTRAMEDULLARY NAIL/KATERYNA FEMUR Right 01/30/2024 Performed by Ang Figueroa MD at [facility] 6 Clicks: Basic Mobility Turning from your [...] 6 Clicks: Basic Mobility Raw Score: 13 [facility] G Code Modifier: CK Recommended Consults: PM&R [...] RW Weight Bearing Status: WBAT Rt LE Telemetry/Surgical Endoscopist: Yes Other: fall risk Pain Assessment Pain [...] Shower chair Home Equipment: Rolling walker, Cane, Information Technology Program Manager Prior Function Lives With: Alone Receives Help From: Neighbor Level of Mobility: Independent with ADLs and functional transfers or gait Homemaking Assistance: Independent (Except for driving) Other: Prior to injury pt completely independent without devices. He had been at [facility] just prior to this adm and amb [...] Closed fracture of right hip, initial encounter ([facility]) Active Problems: Myah-prosthetic fracture around prosthetic hip * PT/OT/MARKETING INFORMATION ANALYST - Nohemy Han OTR/L - 01/31/2024 11:28 AM EDT [...] from lisinopril Chronic pain disorder Colon cancer ([facility]) COPD (chronic obstructive pulmonary disease) ([facility] [place]) Depression Diabetes mellitus type 2, controlled ([facility] [place]) Fibromyalgia, primary Fracture of right hip, closed, initial encounter ([facility] [place]) 01/17/2024 GERD (gastroesophageal reflux disease) Hyperlipidemia Hypertension Insulin-treated type 2 diabetes mellitus ([facility] [place]) Joint pain Kidney stones Liver disease Low back pain Neck pain Obesity Osteoarthritis Visual impairment Past Surgical History: Procedure Laterality Date BACK SURGERY COLON SURGERY resection, 2018, [facility] DAVINCI REPAIR HERNIA VENTRAL N/A 10/27/2021 Performed by Ridge Cedillo MD at [facility] pt had all teeth removed HERNIA REPAIR x's 2 INSERTION INTRAMEDULLARY NAIL FEMUR Right 01/30/2024 Performed by Ang Figueroa MD at [facility] INSERTION INTRAMEDULLARY NAIL FEMUR-TFNA HIP FX Right 01/18/2024 Performed by Ang Figueroa MD at [facility] ORTHOPEDIC SURGERY 2008 foot, infected foot REMOVAL HARDWARE INTRAMEDULLARY NAIL/KATERYNA FEMUR Right 01/30/2024 Performed by Ang Figueroa MD at [facility] Chief Complaint Patient presents with Fall Evaluation [...] RW Weight Bearing Status: WBAT Rt LE Telemetry/Surgical Endoscopist: Yes Oxygen Used: room air Other: fall [...] Shower chair Home Equipment: Rolling walker, Cane, Information Technology Program Manager Other : No AE/DME needs prior to [...] Patient will perform bed mobility with Modified [place]osh[place] Dates: Start: 01/31/24 Expected End: 02/28/24 Description: Goal Description: Disciplines: OT Problem: Functional Mobility Dates: Start: 01/31/24 Disciplines: OT Goal: Patient will perform functional mobility with Modified [place] Dates: Start: 01/31/24 Expected End: 02/28/24 Description: [...] Goal: Patient will perform transfers with Modified [place]osh[place] Dates: Start: 01/31/24 Expected End: 02/28/24 Description: Goal Description: Disciplines: OT Occupational Therapy Care Plan (Resolved) There are no resolved problems. Principal Problem: Closed fracture of right hip, initial encounter ([facility]) Active Problems: Myah-prosthetic fracture around prosthetic hip * Plan of Care - Mia Goddard RN - 01/31/2024 9:06 AM EDT Problem: Pain Goal: Patient goal is pain score less than 4, able to rest, and participant in treatment plan as appropriate Description: INTERVENTIONS: 1. Encourage patient or legal provider relations representative to report early pain and ask [...] per policy 9. Teach patient or legal provider relations representative interventions for comforting Outcome: Progressing Note: [...] Description: INTERVENTIONS: 1. Encourage patient or legal provider relations representative to report early pain and ask [...] per policy 9. Teach patient or legal provider relations representative interventions for comforting Outcome: Progressing Note: [...] at the bedside 7. Instruct patient/ patient provider relations representative about use of safety devices 8. Include patient/ patient provider relations representative in decisions related to safety Outcome: [...] hygiene technique 7. Identify and instruct patient/patient provider relations representative in use of appropriate isolation precautionsfor identified infection/symptoms 8. Provide and discuss with patient/patient provider relations representative on educational MDRO sheet 9. Encourage and monitor nutritional status daily and consult validation manager if indicated 10. Implement neutropenic guidelines as needed 11. Review exposure to history of communicable disease and recent travel history on admission 12. Encourage annual influenza vaccine 13. Encourage pneumonia vaccine Outcome: Progressing Note: Evaluation of progress towards goal: Pt afebrile at this time, continue to monitor for signs infection Problem: Knowledge Deficit Goal: Patient/patient provider relations representative demonstrates understanding of disease process, treatment [...] Description: INTERVENTIONS: 1. Encourage patient or legal provider relations representative to report early pain and ask [...] per policy 9. Teach patient or legal provider relations representative interventions for comforting Outcome: Progressing Note: Evaluation of progress towards goal: Encourage patient or legal provider relations representative to report early pain and ask [...] at the bedside 7. Instruct patient/ patient provider relations representative about use of safety devices 8. Include patient/ patient provider relations representative in decisions related to safety Outcome: [...] hygiene technique 7. Identify and instruct patient/patient provider relations representative in use of appropriate isolation precautionsfor identified infection/symptoms 8. Provide and discuss with patient/patient provider relations representative on educational MDRO sheet 9. Encourage and monitor nutritional status daily and consult validation manager if indicated 10. Implement neutropenic guidelines as [...] and monitor nutritional status daily and consult validation manager if indicated. Encourage annual influenza vaccine and pneumonia vaccine. * Op Note - Ang Figueroa MD - 01/30/2024 9:23 AM EDT DATE OF OPERATION: January 30, 2024 PREOPERATIVE DIAGNOSIS: 1. right intertrochanteric hip fracture with new periprosthetic subtrochanteric fracture after a second fall at rehab POSTOPERATIVE DIAGNOSIS: 1. Same OPERATION: 1. IM nail right intertrochanteric/subtrochanteric hip fracture.- 53482 2. Removal hardware Right femur - 66925 SURGEON: Ang Figueroa MD CONDUCTOR PULLMAN: Jalen Gan MD ANESTHESIA: General. MEDICATIONS: vanc [...] was then placed by using a perfect [place] technique with fluoroscopy. The drill bit was [...] time of surgery. ANG FIGUEROA MD * PT/OT/MARKETING INFORMATION ANALYST - Nohemy Han OTR/L - 01/30/2024 8:43 AM EDT Occupational Therapy CANCEL - Deferred OT attempted. Pt off floor at surgery. Will check back as able. * PT/OT/MARKETING INFORMATION ANALYST - Lindsay Infante, PT - 01/30/2024 8:41 AM EDT Physical [...] Description: INTERVENTIONS: 1. Encourage patient or legal provider relations representative to report early pain and ask [...] per policy 9. Teach patient or legal provider relations representative interventions for comforting Outcome: Progressing Note: [...] at the bedside 7. Instruct patient/ patient provider relations representative about use of safety devices 8. Include patient/ patient provider relations representative in decisions related to safety Outcome: [...] hygiene technique 7. Identify and instruct patient/patient provider relations representative in use of appropriate isolation precautionsfor identified infection/symptoms 8. Provide and discuss with patient/patient provider relations representative on educational MDRO sheet 9. Encourage and monitor nutritional status daily and consult validation manager if indicated 10. Implement neutropenic guidelines as needed 11. Review exposure to history of communicable disease and recent travel history on admission 12. Encourage annual influenza vaccine 13. Encourage pneumonia vaccine Outcome: Progressing Note: Evaluation of progress towards goal: Pt afebrile at this time, continue to monitor for signs infection Problem: Knowledge Deficit Goal: Patient/patient provider relations representative demonstrates understanding of disease process, treatment plan,medications, and discharge instructions Description: INTERVENTIONS 1. Complete learning assessment and assess knowledge base 2. Provide teaching at level of understanding 3. Provide teaching via preferred learning method(s) Outcome: Progressing Note: Evaluation of progress towards goal: POC discussed with patient. Questions answered PRN. documented in this encounterUniversity Hospitals Lake West Medical CenterFeidee [id number] Progress note* PT/OT/MARKETING INFORMATION ANALYST - MALATHI Meneses/Lanie - 02/03/2024 9:51 AM [...] belt, RW Weight Bearing Status: WBAT RLE Telemetry/Surgical Endoscopist: Yes Other: fall risk Pain Assessment Pain [...] Ireland OTR/Lanie Not Progressing 02/01/24 1548 Azul Medrano, SERVIN/L Progressing 02/01/24 1328 Azulvanessa Medrano, SERVIN/L Not Progressing 01/31/24 1609 Azul Mitchell, SERVIN/L Progressing Goal Note filed on 02/02/24 0953 by Ludy Ireland OTR/Lanie Evaluation of progress towards goal: Problem: Bed Mobility Dates: Start: 01/31/24 Disciplines: OT Goal: Patient will perform bed mobility with Modified [place] Dates: Start: 01/31/24 Expected End: 02/28/24 Description: Goal Description: Disciplines: OT Outcomes Date/Time User Outcome 02/01/24 1328 Azulvanessa Medrano, SERVIN/L Progressing Goal Note filed on 02/01/24 1328 by Azul Medrano SERVIN/L Evaluation of progress towards goal: Problem: Functional Mobility Dates: Start: 01/31/24 Disciplines: OT Goal: Patient will perform functional mobility with Modified [place] Dates: Start: 01/31/24 Expected End: 02/28/24 Description: Goal Description: Disciplines: OT Outcomes Date/Time User Outcome 02/03/24 0944 Katlin Goins SERVIN/L Progressing 02/01/24 1548 Azul Medrano, SERVIN/L [...] Outcomes Date/Time User Outcome 02/03/24 0944 CHARU MenesesA/Lanie Progressing 02/01/24 1548 Azul Mitchell, SERVIN/L Progressing 01/31/24 1609 Azlu Mitchell, SERVIN/L Not Progressing Goal Note filed on 02/01/24 1548 by MALATHI Nielsen/Lanie Evaluation of progress towards goal: Problem: Transfers Dates: Start: 01/31/24 Disciplines: OT Goal: Patient will perform transfers with Modified [place] Dates: Start: 01/31/24 Expected End: 02/28/24 Description: Goal Description: Disciplines: OT Outcomes Date/Time User Outcome 02/03/24 0944 Katlin Goins SERVIN/L Progressing 02/02/24 0953 WILLARD Banda/Lanie Progressing 02/01/24 1548 Azul Medrano, SERVIN/L Progressing 02/01/24 1328 Azul Mitchell, SERVIN/L Not Progressing 01/31/24 1609 Azul Mitchell, SERVIN/L Progressing Goal Note filed on 02/02/24 0953 by Ludy Ireland OTR/Lanie Evaluation of progress towards goal: Occupational Therapy Care Plan (Resolved) There are no resolved problems. Principal Problem: Closed fracture of right hip, initial encounter ([facility] Active Problems: Myah-prosthetic fracture around prosthetic hip Associated attestation - Ludy Dey OTR/L - 02/03/2024 11:43 AM EDT I have reviewed and agree with this note and education documentation for this visit. [facility]06-22-2024 Plan of care note* Plan of Care - Lian Silva RN - 02/03/2024 8:45 AM EDT Problem: Pain Goal: Patient goal is pain score less than 4, able to rest, and participant in treatment plan as appropriate Description: INTERVENTIONS: 1. Encourage patient or legal provider relations representative to report early pain and ask [...] per policy 9. Teach patient or legal provider relations representative interventions for comforting Outcome: Progressing Note: [...] Score of =/> 25 or indicated by [facility] Assessment Goal: Patient should be free from fall Description: Interventions: 1. [place] to environment 2. Hourly rounds addressing the [...] non-skid footwear 11. Teach patient and patient provider relations representative to maintain environment for safety and [...] (cane, walker) within reach 19. Request patient provider relations representative bring adaptive equipment/mobility aids from home or obtain and provide as needed 20. Consult pharmacy regarding effects of med's affecting mobility, cognition, and alternatives 21. Obtain physician order for PT if risk factors associated with mobility are present 22. Obtain physician order for OT as appropriate 23. Utilize diversional activities 24. Educate patient and patient provider relations representative how to maintain a safe environment during visitationtimes (notify nurse prior to leaving bedside) 25. Consider appropriateness of medical or non-biomedical engineering technician 26. Set up voiding schedule as appropriate (every 2 hours) Outcome: Progressing Note: Evaluation of progress towards goal: Call light within reach. Remains free of fall or injury.Environment free of clutter. [facility]06-22-2024 Hospital course Narrative* Leatha Mcguire MD - [...] Closed fracture of right hip, initial encounter ([facility] [place]) Active Problems: Myah-prosthetic fracture around prosthetic hip CONSULTANTS: Consulting Providers Provider Service Specialty [facility] -- Hematology MD Rubén Puri Physical Medicine and Rehabilitation Physical Medicine and Rehabilitation PCP: Patient Care Team: Jd Du PA-C as PCP - General (Physician Agricultural Extension Agent) PROCEDURES PERFORMED: right intertrochanteric/subtrochanteric hip fracture and [...] alignment. No evidence of immediate hardware complication. Workstation:[id number] by Marc Paredes MD on 01/30/2024 1:43 [...] 1500 mL Follow up: Jd Du PA-C [facility] [address] Please arrange follow-up with primary care 1 [...] pressure medications if systolic blood pressure greater [id number] or less than 110 or heart rate [...] at 8:15 a.m. regarding recent surgery. Telephone number:[phone] 9. No driving and no operating heavy machinery For most accurate medication list, please review the discharge medication summary. 34 minutes were spent on discharging this patient. documented in this encounterFayette [facility]06[facility] Plan of care note * Plan of [...] hygiene technique 7. Identify and instruct patient/patient provider relations representative in use of appropriate isolation precautionsfor identified infection/symptoms 8. Provide and discuss with patient/patient provider relations representative on educational MDRO sheet 9. Encourage and monitor nutritional status daily and consult validation manager if indicated 10. Implement neutropenic guidelines as [...] this time. Problem: Knowledge Deficit Goal: Patient/patient provider relations representative demonstrates understanding of disease process, treatment plan,medications, and discharge instructions Description: INTERVENTIONS 1. Complete learning assessment and assess knowledge base 2. Provide teaching at level of understanding 3. Provide teaching via preferred learning method(s) Outcome: Progressing Note: Evaluation of progress towards goal: Patient agrees with treatment plan at this time. [facility]06-21-2024 Progress note* Discharge Planning Note - Araceli Motta - 02/02/2024 3:32 PM EDT DISCHARGE PLANNING NOTE [facility] transport via PTN confirmed in [facility] to [facility] 6.22.24 at 2:00pm. [facility]06-21-2024 Progress note* PT/OT/MARKETING INFORMATION ANALYST - WILLARD Banda/L - 02/02/2024 2:02 PM EDT Occupational Therapy CANCEL - Deferred Pt currently off floor for RLE dopplers. Will continue POC as able. [facility]06-21-2024 Progress note* PT/OT/MARKETING INFORMATION ANALYST - Nas Lima PTA - 02/02/2024 2:00 PM EDT Physical Therapy (P) CANCEL - Deferred (pt. off floor for dopplers-Cont per POC when available) Associated attestation - Carlos Brar PT - 02/02/2024 3:00 PM EDT I have reviewed and agree with this note and education documentation for this visit. [facility] [id number] Nurse Note* Gurjit Drummond RN - 02/02/2024 1:50 PM EDT Pt here for Vascular. No needs voiced at present time. [facility]06-21-2024 Nurse Note* Gurjit Drummond RN - 02/02/2024 [...] Thank you, Alistair Richards RN Rapid Response: [facility] documented in this encounterFayette [facility]06[facility] Plan of care note * Plan of Care - Lian Silva RN - 02/02/2024 1:10 PM EDT Problem: Pain Goal: Patient goal is pain score less than 4, able to rest, and participant in treatment plan as appropriate Description: INTERVENTIONS: 1. Encourage patient or legal provider relations representative to report early pain and ask [...] per policy 9. Teach patient or legal provider relations representative interventions for comforting Outcome: Progressing Note: [...] at the bedside 7. Instruct patient/ patient provider relations representative about use of safety devices 8. Include patient/ patient provider relations representative in decisions related to safety Outcome: [...] hygiene technique 7. Identify and instruct patient/patient provider relations representative in use of appropriate isolation precautionsfor identified infection/symptoms 8. Provide and discuss with patient/patient provider relations representative on educational MDRO sheet 9. Encourage and monitor nutritional status daily and consult validation manager if indicated 10. Implement neutropenic guidelines as needed 11. Review exposure to history of communicable disease and recent travel history on admission 12. Encourage annual influenza vaccine 13. Encourage pneumonia vaccine Outcome: Progressing Note: Evaluation of progress towards goal: Skin integrity remains in stable condition; remains w/o ss of infection, fever, pain, or increased discomfort. Problem: Knowledge Deficit Goal: Patient/patient provider relations representative demonstrates understanding of disease process, treatment [...] supplement as ordered 13. Collaborate with clinical validation manager 14. Include patient/ patient's provider relations representative in decisions related to nutrition Outcome: [...] discharge planning process 5. Communicate referral to natural resources extension educator as appropriate 6. Communicate referral to validation manager as appropriate 7. Collaborate with case management/social contact worker for discharge needs Outcome: Progressing Note: Evaluation of progress towards goal: Discharge planning in process; will continue to monitor for discharge needs. Problem: Moderate - High Risk Fall Score Description: Arredondo Fall Score of =/> 25 or indicated by [facility] Assessment Goal: Patient should be free from fall Description: Interventions: 1. Amidon to environment 2. Hourly rounds addressing the [...] non-skid footwear 11. Teach patient and patient provider relations representative to maintain environment for safety and [...] (cane, walker) within reach 19. Request patient provider relations representative bring adaptive equipment/mobility aids from home or obtain and provide as needed 20. Consult pharmacy regarding effects of med's affecting mobility, cognition, and alternatives 21. Obtain physician order for PT if risk factors associated with mobility are present 22. Obtain physician order for OT as appropriate 23. Utilize diversional activities 24. Educate patient and patient provider relations representative how to maintain a safe environment during visitationtimes (notify nurse prior to leaving bedside) 25. Consider appropriateness of medical or non-biomedical engineering technician 26. Set up voiding schedule as appropriate (every 2 hours) Outcome: Progressing Note: Evaluation of progress towards goal: Call light within reach. Remains free of fall or injury.Environment free of clutter. [facility]06-21-2024 Progress note* Discharge Planning Note - JEWEL Harrington - 02/02/2024 12:06 PM EDT DISCHARGE PLANNING NOTE Patient discussed today in daily transition rounds. Current Discharge Plan; [facility] [place]. Current Barriers: pain control. SW requested transport for 2pm tomorrow for DC. - JEWEL HARRINGTON 02/02/24 12:06 PM [facility]06-21-2024 Progress note* PT/OT/MARKETING INFORMATION ANALYST - Nas Lima PTA - 02/02/2024 8:13 [...] belt, RW Weight Bearing Status: WBAT RLE Telemetry/Surgical Endoscopist: Yes Other: fall risk Pain Assessment Pain [...] Nick Fernandez PTA Progressing 01/31/24 1545 Nick Fernandez, PROPERTY MANAGEMENT ASSISTANT Progressing Goal Note filed on 02/01/24 1525 [...] User Outcome 02/02/24 0937 Nas Lima, SHERYL Not Progressing 02/01/24 1525 Nick Fernandez PTA Progressing 02/01/24 114Neil Fernandez PTA Not Progressing 01/31/24 1545 Nick [...] User Outcome 02/02/24 0937 Nas Lima, SHERYL Not Progressing 02/01/24 1525 Nick Fernandez PTA [...] Date/Time User Outcome 02/02/24 0937 Nas Lima, PROPERTY MANAGEMENT ASSISTANT Progressing 02/01/24 1525 Nick Fernandez PTA Progressing [...] Date/Time User Outcome 02/02/24 0937 Nas Lima, PROPERTY MANAGEMENT ASSISTANT Progressing 02/01/24 1525 Nick Fernandez PTA Progressing 02/01/24 1140 Nick Fernandez PTA Not Progressing 01/31/24 1545 Nick Fernandez PTA Progressing Goal Note filed on 02/01/24 1525 by Nick Fernandez PTA Evaluation of progress towards goal: Physical Therapy Care Plan (Resolved) There are no resolved problems. Principal Problem: Closed fracture of right hip, initial encounter ([facility]) Active Problems: Myah-prosthetic fracture around prosthetic hip Associated attestation - Carlos Brar PT - 02/02/2024 3:00 PM EDT I have reviewed and agree with this note and education documentation for this visit. [employer] [id number] Progress note* PT/OT/MARKETING INFORMATION ANALYST - WILLARD Banda/Lanie - 02/02/2024 8:13 AM [...] belt Weight Bearing Status: WBAT Rt LE Telemetry/Surgical Endoscopist: Yes Oxygen Used: room air Other: fall [...] Azulvanessa Medrano, SERVIN/L Not Progressing 01/31/24 1609 Azulvanessa CelisMitchell, SERVIN/L Progressing Goal Note filed on 02/02/24 0953 by Ludy Ireland OTR/Lanie Evaluation of progress towards goal: Problem: Bed Mobility Dates: Start: 01/31/24 Disciplines: OT Goal: Patient will perform bed mobility with Modified [place] Dates: Start: 01/31/24 Expected End: 02/28/24 Description: Goal Description: Disciplines: OT Outcomes Date/Time User Outcome 02/01/24 1328 Azul Mitchell, SERVIN/L Progressing Goal Note filed on 02/01/24 1328 by CHARU NielsenA/Lanie Evaluation of progress towards goal: Problem: Functional Mobility Dates: Start: 01/31/24 Disciplines: OT Goal: Patient will perform functional mobility with Modified [place] Dates: Start: 01/31/24 Expected End: 02/28/24 Description: [...] Goal: Patient will perform transfers with Modified [place] Dates: Start: 01/31/24 Expected End: 02/28/24 Description: Goal Description: Disciplines: OT Outcomes Date/Time User Outcome 02/02/24 0953 WILLARD Banda/Lanie Progressing 02/01/24 1548 Azul Medrano SERVIN/L Progressing 02/01/24 1328 Azulvanessa Medrano, SERVIN/L Not Progressing 01/31/24 1609 Azul Mitchell, SERVIN/L Progressing Goal Note filed on 02/02/24 0953 by Ludy Ireland OTR/Lanie Evaluation of progress towards goal: Occupational Therapy Care Plan (Resolved) There are no resolved problems. Principal Problem: Closed fracture of right hip, initial encounter ([facility]) Active Problems: Myah-prosthetic fracture around prosthetic hip [facility]06-20-2024 Plan of care note* Plan of Care - Lacey Singer RN - 02/01/2024 10:15 PM EDT Problem: Pain Goal: Patient goal is pain score less than 4, able to rest, and participant in treatment plan as appropriate Description: INTERVENTIONS: 1. Encourage patient or legal provider relations representative to report early pain and ask [...] per policy 9. Teach patient or legal provider relations representative interventions for comforting Outcome: Progressing Note: [...] at the bedside 7. Instruct patient/ patient provider relations representative about use of safety devices 8. Include patient/ patient provider relations representative in decisions related to safety Outcome: Progressing Note: Evaluation of progress towards goal: Assessed patient's risk for falls and implemented fall prevention plan of care per policy. Provided and maintained a safe environment. Pt remains free from falls and injury during this stay. [facility]06-20-2024 Nurse Note* Alistair Richards RN - 02/01/2024 [...] Thank you, Alistair Richards RN Rapid Response: [facility]06-20-2024 Progress note* PT/OT/MARKETING INFORMATION ANALYST - NALLELY Nielsen - 02/01/2024 3:49 PM [...] RW Weight Bearing Status: WBAT Rt LE Telemetry/Surgical Endoscopist: Yes Oxygen Used: room air Other: fall [...] Patient will perform bed mobility with Modified [place] Dates: Start: 01/31/24 Expected End: 02/28/24 Description: Goal Description: Disciplines: OT Outcomes Date/Time User Outcome 02/01/24 1328 Azul Medrano, SERVIN/L Progressing Goal Note filed on 02/01/24 1328 by MALATHI Nielsen/Lanie Evaluation of progress towards goal: Problem: Functional Mobility Dates: Start: 01/31/24 Disciplines: OT Goal: Patient will perform functional mobility with Modified [place] Dates: Start: 01/31/24 Expected End: 02/28/24 Description: [...] NielsenA/Lanie Evaluation of progress towards goal: Problem: Standing [...] OT Outcomes Date/Time User Outcome 02/01/24 1548 MALATHI Nielsen/Lanie Progressing 01/31/24 1609 CHARU NielsenA/Lanie Not Progressing Goal Note filed on 02/01/24 1548 by NALLELY Nielsen Evaluation of progress towards goal: Problem: Transfers Dates: Start: 01/31/24 Disciplines: OT Goal: Patient will perform transfers with Modified [place] Dates: Start: 01/31/24 Expected End: 02/28/24 Description: Goal Description: Disciplines: OT Outcomes Date/Time User Outcome 02/01/24 1548 MALATHI Nielsen/Lanie Progressing 02/01/24 1328 CHARU NielsenA/L Not Progressing 01/31/24 1609 CHARU NielsenA/L Progressing Goal Note filed on 02/01/24 1548 by NALLELY Nielsen Evaluation of progress towards goal: Occupational Therapy Care Plan (Resolved) There are no resolved problems. Principal Problem: Closed fracture of right hip, initial encounter ([facility]) Active Problems: Myah-prosthetic fracture around prosthetic hip Associated attestation - Ludy Ireland OTR/L - 02/02/2024 7:41 AM EDT I have reviewed and agree with this note and education documentation for this visit. [facility]06-20-2024 Progress note* PT/OT/MARKETING INFORMATION ANALYST - Nick Fernandez, SHERYL - 02/01/2024 3:39 PM EDT Physical Therapy [...] RW Weight Bearing Status: WBAT Rt LE Telemetry/Surgical Endoscopist: Yes Oxygen Used: room air Other: fall [...] Date/Time User Outcome 02/01/24 1525 Nick Fernandez, SHERYL Progressing 02/01/24 1140 Nick Fernandez PTA Progressing [...] 02/01/24 1525 Nick Fernandez PTA Progressing 02/01/24 114Neil Fernandez PTA Not Progressing 01/31/24 1545 Nick [...] Closed fracture of right hip, initial encounter ([facility]) Active Problems: Myah-prosthetic fracture around prosthetic hip Associated attestation - Lindsay Infante, PT - 02/01/2024 3:54 PM EDT I have reviewed and agree with this note and education documentation for this visit. [employer]izz [id number] Progress note* PT/OT/MARKETING INFORMATION ANALYST - NALLELY Nielsen - 02/01/2024 1:29 PM [...] None Scoring Daily Activity Raw Score: 17 CMS G Code Modifier: CK OT Treatment/Interventions: [...] RW Weight Bearing Status: WBAT Rt LE Telemetry/Surgical Endoscopist: Yes Oxygen Used: room air Other: fall [...] User Outcome 02/01/24 1328 Azul Medrano, SERVIN/L Not Progressing 01/31/24 1609 Azul Medrano SERVIN/L Progressing Goal Note filed on 02/01/24 1328 by CHARU NielsenA/Lanie Evaluation of progress towards goal: Problem: Bed Mobility Dates: Start: 01/31/24 Disciplines: OT Goal: Patient will perform bed mobility with Modified [place] Dates: Start: 01/31/24 Expected End: 02/28/24 Description: Goal Description: Disciplines: OT Outcomes Date/Time User Outcome 02/01/24 1328 Azul Medrano SERVIN/L Progressing Goal Note filed on 02/01/24 1328 by MALATHI Nielsen/Lanie Evaluation of progress towards goal: Problem: Functional Mobility Dates: Start: 01/31/24 Disciplines: OT Goal: Patient will perform functional mobility with Modified [place] Dates: Start: 01/31/24 Expected End: 02/28/24 Description: Goal Description: Disciplines: OT Outcomes Date/Time User Outcome 02/01/24 1328 Azlu Medrano SERVIN/L Not Progressing 01/31/24 1609 NALLELY Nielsen Progressing Goal Note filed on 02/01/24 1328 by NALLELY Neilsen Evaluation of progress towards goal: Problem: Other [...] Goal: Patient will perform transfers with Modified [place] Dates: Start: 01/31/24 Expected End: 02/28/24 Description: Goal Description: Disciplines: OT Outcomes Date/Time User Outcome 02/01/24 1328 NALLELY Nielsen Not Progressing 01/31/24 1609 NALLELY Nielsen Progressing Goal Note filed on 02/01/24 1328 by NALLELY Nielsen Evaluation of progress towards goal: Occupational Therapy Care Plan (Resolved) There are no resolved problems. Principal Problem: Closed fracture of right hip, initial encounter ([facility]) Active Problems: Myah-prosthetic fracture around prosthetic hip Associated attestation - Ludy Ireland OTR/L - 02/01/2024 2:58 PM EDT I have reviewed and agree with this note and education documentation for this visit. [facility]06-20-2024 Progress note* PT/OT/MARKETING INFORMATION ANALYST - Nick Fernandez PTA - 02/01/2024 11:57 [...] 6 Clicks: Basic Mobility Raw Score: 11 [facility] G Code Modifier: CL Patient Response to [...] Weight Bearing Status: (P) WBAT Rt LE Telemetry/Surgical Endoscopist: (P) Yes Oxygen Used: (P) room air [...] 1140 Nick Fernandez PTA Not Progressing 01/31/24 154Fern Fernandez PTA Progressing Goal Note filed on [...] Note filed on 02/01/24 1140 by Nick Fernanedz PTA Evaluation of progress towards goal: Physical Therapy Care Plan (Resolved) There are no resolved problems. Principal Problem: Closed fracture of right hip, initial encounter ([facility] Active Problems: Myah-prosthetic fracture around prosthetic hip Associated attestation - Lindsay Infante PT - 02/01/2024 3:54 PM EDT I have reviewed and agree with this note and education documentation for this visit. [facility]06-20-2024 Progress note* Discharge Planning Note - JEWEL Crenshaw - 02/01/2024 11:36 AM EDT DISCHARGE PLANNING NOTE DC plan IPR: [facility] pt [facility]. No auth needed. W/C tx cert in dc packet. Barriers: pain control on IV pain meds, Rt leg swollen - JEWEL Crenshaw 02/01/24 11:37 AM [facility]06-20-2024 Progress note* Significant Event - HUBERT Paul [...] at this time. HUBERT Patel PA-C 02/01/24 1051 [facility] Work Phone: 1(548) 948-437106-20-2024 Plan of care note* Plan of Care - Antionette Smith RN - 02/01/2024 10:19 AM EDT Problem: Pain Goal: Patient goal is pain score less than 4, able to rest, and participant in treatment plan as appropriate Description: INTERVENTIONS: 1. Encourage patient or legal provider relations representative to report early pain and ask [...] per policy 9. Teach patient or legal provider relations representative interventions for comforting Outcome: Progressing Note: [...] at the bedside 7. Instruct patient/ patient provider relations representative about use of safety devices 8. Include patient/ patient provider relations representative in decisions related to safety Outcome: Progressing Note: Evaluation of progress towards goal: free from falls Problem: Glucose Imbalance Goal: Clinical indication of glucose balance is achieved Description: Patient's goal is: INTERVENTIONS 1. Monitor blood glucose levels as ordered 2. Administer medications as ordered 3. Notify physician of ineffective treatment plan Outcome: Progressing Note: Evaluation of progress towards goal: blood glucose stable [facility]06-20-2024 Hospital Discharge instructions* Discharge Instructions* Leatha Mcguire [...] pressure medications if systolic blood pressure greater [id number] or less than 110 or heart rate [...] at 8:15 a.m. regarding recent surgery. Telephone number:[phone] 9. No driving and no operating heavy [...] Center 02/12/2024 8:15 AM Ang Figueroa MD [facility] Office Location: [facility] [address] [place] [address] Call 911 immediately if you experience: Chest [...] Care Everywhere. * Femur Fracture Discharge Instructions (Cook Islander) [facility] Plan of care note * Plan of Care - Santi Parks RN - 01/31/2024 7:30 PM EDT Problem: Pain Goal: Patient goal is pain score less than 4, able to rest, and participant in treatment plan as appropriate Description: INTERVENTIONS: 1. Encourage patient or legal provider relations representative to report early pain and ask [...] per policy 9. Teach patient or legal provider relations representative interventions for comforting Outcome: Progressing Note: [...] at the bedside 7. Instruct patient/ patient provider relations representative about use of safety devices 8. Include patient/ patient provider relations representative in decisions related to safety Outcome: [...] hygiene technique 7. Identify and instruct patient/patient provider relations representative in use of appropriate isolation precautionsfor identified infection/symptoms 8. Provide and discuss with patient/patient provider relations representative on educational MDRO sheet 9. Encourage and monitor nutritional status daily and consult validation manager if indicated 10. Implement neutropenic guidelines as needed 11. Review exposure to history of communicable disease and recent travel history on admission 12. Encourage annual influenza vaccine 13. Encourage pneumonia vaccine Outcome: Progressing Note: Evaluation of progress towards goal: Pt afebrile at this time, continue to monitor for signs infection Problem: Knowledge Deficit Goal: Patient/patient provider relations representative demonstrates understanding of disease process, treatment plan,medications, and discharge instructions Description: INTERVENTIONS 1. Complete learning assessment and assess knowledge base 2. Provide teaching at level of understanding 3. Provide teaching via preferred learning method(s) Outcome: Progressing Note: Evaluation of progress towards goal: POC discussed with patient. Questions answered PRN. [facility]06-19-[facility] Progress note* PT/OT/MARKETING INFORMATION ANALYST - NALLELY Nielsen 01/31/2024 4:10 PM EDT [...] RW Weight Bearing Status: WBAT Rt LE Telemetry/Surgical Endoscopist: Yes Oxygen Used: room air Other: fall [...] Patient will perform bed mobility with Modified Shoshone Dates: Start: 01/31/24 Expected End: 02/28/24 Description: Goal Description: Disciplines: OT Problem: Functional Mobility Dates: Start: 01/31/24 Disciplines: OT Goal: Patient will perform functional mobility with Modified Shoshone Dates: Start: 01/31/24 Expected End: 02/28/24 Description: [...] Goal: Patient will perform transfers with Modified Shoshone Dates: Start: 01/31/24 Expected End: 02/28/24 Description: Goal Description: Disciplines: OT Outcomes Date/Time User Outcome 01/31/24 160 NALLELY Nielsen Progressing Goal Note filed on 01/31/24 1609 by NALLELY Nielsen Evaluation of progress towards goal: Occupational Therapy Care Plan (Resolved) There are no resolved problems. Principal Problem: Closed fracture of right hip, initial encounter ([facility]) Active Problems: Myah-prosthetic fracture around prosthetic hip Associated attestation - Ludy Ireland OTR/L - 02/01/2024 7:28 AM EDT I have reviewed and agree with this note and education documentation for this visit. [facility] [place] [id number] Progress note* PT/OT/MARKETING INFORMATION ANALYST - Nick Fernandez PTA - 01/31/2024 3:56 [...] RW Weight Bearing Status: WBAT Rt LE Telemetry/Surgical Endoscopist: Yes Oxygen Used: room air Other: fall [...] Note filed on 01/31/24 154 by Nick Fernnadez PTA Evaluation of progress towards goal: Problem: [...] Disciplines: PT Outcomes Date/Time User Outcome 01/31/24 1543 Nick Fernandez PTA Progressing Goal Note filed on 01/31/24 1545 by Nick Fernandez PTA Evaluation of progress towards goal: Physical Therapy Care Plan (Resolved) There are no resolved problems. Principal Problem: Closed fracture of right hip, initial encounter ([facility]) Active Problems: Myah-prosthetic fracture around prosthetic hip Associated attestation - Lindsay Infante PT - 01/31/2024 4:14 PM EDT I have reviewed and agree with this note and education documentation for this visit. [facility]06-19-[facility] Progress note* Discharge Planning Note - Alexandra Eric - 01/31/2024 3:48 PM EDT DISCHARGE PLANNING NOTE Referral sent to [facility], a division of [facility] P# [phone] [calling report];/[facility] (P# [calling report]; F# ) [facility]06-[facility] Progress note* Discharge Planning Note - JEWEL Crenshaw - 01/31/2024 3:13 PM EDT Images from the original note were not included. DISCHARGE PLANNING NOTE SW met with patient introduce self & role. [facility]. Pt underwent IM nail on 01/18/24 and pt discharged to [facility] rehab on 01/22/24. Pt was transferred back to [facility] on 01/28 after fall at rehab facility. [...] and pt would like to return to [facility] rehab. Referral was sent, await confirmation they can accept pt back. Services Requested: Services Requested Acute Rehab Name: [facility]. Acute Rehab . Patient choice offered: Other (comment) (pt current with provider) List Provided: Other (comment) Initial DC Assessment Completed: Yes Patient Goals: Goals: Goals (pt-stated) Evaluation of progress towards goal: pt plans to return to [facility] rehab at [place] to improve mobility and get home (pt-stated) Evaluation of progress towards goal: Participating in therapy - JEWEL Crenshaw 01/31/24 3:18 PM [facility] [place] [id number] Progress note* PT/OT/MARKETING INFORMATION ANALYST - Lindsay Infante, PT - 01/31/2024 1:02 [...] from lisinopril Chronic pain disorder Colon cancer ([facility]) COPD (chronic obstructive pulmonary disease) ([facility]) Depression Diabetes mellitus type 2, controlled ([facility]) Fibromyalgia, primary Fracture of right hip, closed, initial encounter ([facility]) 01/17/2024 GERD (gastroesophageal reflux disease) Hyperlipidemia Hypertension Insulin-treated type 2 diabetes mellitus ([facility]) Joint pain Kidney stones Liver disease Low back pain Neck pain Obesity Osteoarthritis Visual impairment Past Surgical History: Procedure Laterality Date BACK SURGERY COLON SURGERY resection, 2018, [facility] DAVINCI REPAIR HERNIA VENTRAL N/A 10/27/2021 Performed by Ridge Cedillo MD at [facility] pt had all teeth removed HERNIA REPAIR x's 2 INSERTION INTRAMEDULLARY NAIL FEMUR Right 01/30/2024 Performed by Ang Figueroa MD at [facility] INSERTION INTRAMEDULLARY NAIL FEMUR-TFNA HIP FX Right 01/18/2024 Performed by Ang Figueroa MD at [facility] ORTHOPEDIC SURGERY 2008 foot, infected foot REMOVAL HARDWARE INTRAMEDULLARY NAIL/KATERYNA FEMUR Right 01/30/2024 Performed by Ang Figueroa MD at [facility] 6 Clicks: Basic Mobility Turning from your [...] 6 Clicks: Basic Mobility Raw Score: 13 [facility] G Code Modifier: CK Recommended Consults: PM&R [...] RW Weight Bearing Status: WBAT Rt LE Telemetry/Surgical Endoscopist: Yes Other: fall risk Pain Assessment Pain [...] Shower chair Home Equipment: Rolling walker, Cane, Information Technology Program Manager Prior Function Lives With: Alone Receives Help From: Neighbor Level of Mobility: Independent with ADLs and functional transfers or gait Homemaking Assistance: Independent (Except for driving) Other: Prior to injury pt completely independent without devices. He had been at [facility] just prior to this adm and amb [...] Closed fracture of right hip, initial encounter ([facility]) Active Problems: Myah-prosthetic fracture around prosthetic hip [facility]06-19-2024 Progress note* PT/OT/MARKETING INFORMATION ANALYST - Nohemy Han OTR/Lanie - 01/31/2024 11:28 AM EDT [...] from lisinopril Chronic pain disorder Colon cancer ([facility]) COPD (chronic obstructive pulmonary disease) ([facility]) Depression Diabetes mellitus type 2, controlled ([facility]) Fibromyalgia, primary Fracture of right hip, closed, initial encounter ([facility]) 01/17/2024 GERD (gastroesophageal reflux disease) Hyperlipidemia Hypertension Insulin-treated type 2 diabetes mellitus ([facility]) Joint pain Kidney stones Liver disease Low back pain Neck pain Obesity Osteoarthritis Visual impairment Past Surgical History: Procedure Laterality Date BACK SURGERY COLON SURGERY resection, 2018, [facility] DAVINCI REPAIR HERNIA VENTRAL N/A 10/27/2021 Performed by Ridge Cedillo MD at [facility] pt had all teeth removed HERNIA REPAIR x's 2 INSERTION INTRAMEDULLARY NAIL FEMUR Right 01/30/2024 Performed by Ang Figueroa MD at [facility] INSERTION INTRAMEDULLARY NAIL FEMUR-TFNA HIP FX Right 01/18/2024 Performed by Ang Figueroa MD at [facility] ORTHOPEDIC SURGERY 2008 foot, infected foot REMOVAL HARDWARE INTRAMEDULLARY NAIL/KATERYNA FEMUR Right 01/30/2024 Performed by Ang Figueroa MD at [facility] Chief Complaint Patient presents with Fall Evaluation [...] RW Weight Bearing Status: WBAT Rt LE Telemetry/Surgical Endoscopist: Yes Oxygen Used: room air Other: fall [...] Shower chair Home Equipment: Rolling walker, Cane, Information Technology Program Manager Other : No AE/DME needs prior to [...] Patient will perform bed mobility with Modified Shoshone Dates: Start: 01/31/24 Expected End: 02/28/24 Description: Goal Description: Disciplines: OT Problem: Functional Mobility Dates: Start: 01/31/24 Disciplines: OT Goal: Patient will perform functional mobility with Modified Shoshone Dates: Start: 01/31/24 Expected End: 02/28/24 Description: [...] Goal: Patient will perform transfers with Modified Shoshone Dates: Start: 01/31/24 Expected End: 02/28/24 Description: Goal Description: Disciplines: OT Occupational Therapy Care Plan (Resolved) There are no resolved problems. Principal Problem: Closed fracture of right hip, initial encounter ([facility]) Active Problems: Myah-prosthetic fracture around prosthetic hip [employer] [id number] Consult note* Anne Ventura MD - 01/31/2024 [...] from lisinopril Chronic pain disorder Colon cancer ([facility]) COPD (chronic obstructive pulmonary disease) ([facility]) Depression Diabetes mellitus type 2, controlled ([facility]) Fibromyalgia, primary Fracture of right hip, closed, initial encounter ([facility]) 01/17/2024 GERD (gastroesophageal reflux disease) Hyperlipidemia Hypertension Insulin-treated type 2 diabetes mellitus ([facility]) Joint pain Kidney stones Liver disease Low back pain Neck pain Obesity Osteoarthritis Visual impairment PSH: Past Surgical History: Procedure Laterality Date BACK SURGERY COLON SURGERY resection, 2018, [facility] DAVINCI REPAIR HERNIA VENTRAL N/A 10/27/2021 Performed by Ridge Cedillo MD at [facility] pt had all teeth removed HERNIA REPAIR x's 2 INSERTION INTRAMEDULLARY NAIL FEMUR Right 01/30/2024 Performed by Ang Figueroa MD at [facility] INSERTION INTRAMEDULLARY NAIL FEMUR-TFNA HIP FX Right 01/18/2024 Performed by Ang Figueroa MD at [facility] ORTHOPEDIC SURGERY 2008 foot, infected foot REMOVAL HARDWARE INTRAMEDULLARY NAIL/KATERYNA FEMUR Right 01/30/2024 Performed by Ang Figueroa MD at [facility] Allergies Allergen Reactions Insulin Glargine Nausea And [...] mg, 1 mg, oral, Daily, Marsha Flores, BOATS RENTER-MANAGER [employer]IVERSAL, 1 mg at 01/31/24 0748 gabapentin (NEURONTIN) [...] 20 Units, 20 Units, subcutaneous, Daily, Demond rFazier MD, 20 Units at 01/31/24 0756 insulin [...] Demond Frazier MD, 50 mg at 01/30/24 5822 Social History Socioeconomic History Marital status: Single [...] min Stress: No Stress Concern Present (01/22/2024) Lao Holcomb of Occupational Health - Occupational Stress Questionnaire Feeling of Stress : Not at all Social Connections: Socially Isolated (01/22/2024) Social Connection and Isolation Panel [NHANES] Frequency of Communication with Friends and Family: More than three times a week Frequency of Social Gatherings with Friends and Family: More than three times a week Attends Yazidi Services: Never Active Member of Clubs or [...] you for the consultation Anne Ventura MD [employer] Work Phone: 1(483) 233-320406-19-2024 Consult note* Anne Ventura MD - 01/31/2024 [...] from lisinopril Chronic pain disorder Colon cancer ([facility]) COPD (chronic obstructive pulmonary disease) ([facility]) Depression Diabetes mellitus type 2, controlled ([facility]) Fibromyalgia, primary Fracture of right hip, closed, initial encounter ([facility]) 01/17/2024 GERD (gastroesophageal reflux disease) Hyperlipidemia Hypertension Insulin-treated type 2 diabetes mellitus ([facility]) Joint pain Kidney stones Liver disease Low back pain Neck pain Obesity Osteoarthritis Visual impairment PSH: Past Surgical History: Procedure Laterality Date BACK SURGERY COLON SURGERY resection, 2018, [facility] DAVINCI REPAIR HERNIA VENTRAL N/A 10/27/2021 Performed by Ridge Cedillo MD at [facility] pt had all teeth removed HERNIA REPAIR x's 2 INSERTION INTRAMEDULLARY NAIL FEMUR Right 01/30/2024 Performed by Ang Figueroa MD at [facility] INSERTION INTRAMEDULLARY NAIL FEMUR-TFNA HIP FX Right 01/18/2024 Performed by Ang Figueroa MD at [facility] ORTHOPEDIC SURGERY 2008 foot, infected foot REMOVAL HARDWARE INTRAMEDULLARY NAIL/KATERYNA FEMUR Right 01/30/2024 Performed by Ang Figueroa MD at [facility] Allergies Allergen Reactions Insulin Glargine Nausea And [...] oral, Daily, DAGO Medrano, 1,000 mcg at 01/31/2448 cyclobenzaprine (FLEXERIL) tablet 10 mg, 10 mg, [...] oral, Daily, DAGO Medrano, 1 mg at 01/31/2448 gabapentin (NEURONTIN) tablet 800 mg, 800 mg, [...] pen 20 Units, 20 Units, subcutaneous, Daily, Dmeond Frazier MD, 20 Units at 01/31/24 0756 [...] min Stress: No Stress Concern Present (01/22/2024) Lao Holcomb of Occupational Health - Occupational Stress Questionnaire Feeling of Stress : Not at all Social Connections: Socially Isolated (01/22/2024) Social Connection and Isolation Panel [NHANES] Frequency of Communication with Friends and Family: More than three times a week Frequency of Social Gatherings with Friends and Family: More than three times a week Attends Yazidi Services: Never Active Member of Clubs or [...] the consultation Anne Ventura MD * Marsha Flores, [employer]MANAGER [employer] - 01/29/2024 12:43 PM EDTAssociated Order(s): CONSULT BENIGN HEMATOLOGY AND BLOOD MANAGEMENT Benign Hematology/ Patient Blood Management Consultation: Dr. Paul Flores HANDBAG FRAMES INSPECTOR Laura GASPAR Patient ID: Ruth Smith, 53 [...] from lisinopril Chronic pain disorder Colon cancer ([facility]) COPD (chronic obstructive pulmonary disease) ([facility]) Depression Diabetes mellitus type 2, controlled ([facility]) Fibromyalgia, primary Fracture of right hip, closed, initial encounter ([facility]) 01/17/2024 GERD (gastroesophageal reflux disease) Hyperlipidemia Hypertension Insulin-treated type 2 diabetes mellitus ([facility]) Joint pain Kidney stones Liver disease Low back pain Neck pain Obesity Osteoarthritis Visual impairment PAST SURGICAL HISTORY: Past Surgical History: Procedure Laterality Date BACK SURGERY COLON SURGERY resection, 2018, [facility] DAVINCI REPAIR HERNIA VENTRAL N/A 10/27/2021 Performed by Ridge Cedillo MD at [facility] pt had all teeth removed HERNIA REPAIR x's 2 INSERTION INTRAMEDULLARY NAIL FEMUR-TFNA HIP FX Right 01/18/2024 Performed by Ang Figueroa MD at [facility] ORTHOPEDIC SURGERY 2008 foot, infected foot PAST [...] min Stress: No Stress Concern Present (01/22/2024) Lao Holcomb of Occupational Health - Occupational Stress Questionnaire Feeling of Stress : Not at all Social Connections: Socially Isolated (01/22/2024) Social Connection and Isolation Panel [NHANES] Frequency of Communication with Friends and Family: More than three times a week Frequency of Social Gatherings with Friends and Family: More than three times a week Attends Yazidi Services: Never Active Member of Clubs or [...] 1,000 mg 1,000 mg intravenous Q6H Zabrina ZunigaJOHN craft-ELIANE Stopped at 01/28/24 5924 Current Outpatient Medications on File Prior to [...] 5 (L) 01/29/2024 IRONSAT 16 (L) 01/17/2024 [id number] 01/29/2024 [id number] 01/17/2024 FOLATE 8.4 01/29/2024 FOLATE 9.3 [...] medical decision making only. Can use Secure [employer] messaging anytime during business hours Monday-Monday 8 am to 5 pm. Marsha Flores NP Patient Blood Management/Bloodless Medicine Office [phone] DAGO Medrano 01/29/24 1342 [facility] Plan of care note * Plan of Care - Mia Goddard RN - 01/31/2024 9:06 AM EDT Problem: Pain Goal: Patient goal is pain score less than 4, able to rest, and participant in treatment plan as appropriate Description: INTERVENTIONS: 1. Encourage patient or legal provider relations representative to report early pain and ask [...] per policy 9. Teach patient or legal provider relations representative interventions for comforting Outcome: Progressing Note: Evaluation of progress towards goal: Patinet rates pain level between 6 to 10 is medicated asordered, states has acceptable pain relief. Will continue to moniter [employer] [id number] Plan of care note* Plan of Care - Santi Parks RN - 01/30/2024 7:35 PM EDT Problem: Pain Goal: Patient goal is pain score less than 4, able to rest, and participant in treatment plan as appropriate Description: INTERVENTIONS: 1. Encourage patient or legal provider relations representative to report early pain and ask [...] per policy 9. Teach patient or legal provider relations representative interventions for comforting Outcome: Progressing Note: [...] at the bedside 7. Instruct patient/ patient provider relations representative about use of safety devices 8. Include patient/ patient provider relations representative in decisions related to safety Outcome: [...] hygiene technique 7. Identify and instruct patient/patient provider relations representative in use of appropriate isolation precautionsfor identified infection/symptoms 8. Provide and discuss with patient/patient provider relations representative on educational MDRO sheet 9. Encourage and monitor nutritional status daily and consult validation manager if indicated 10. Implement neutropenic guidelines as needed 11. Review exposure to history of communicable disease and recent travel history on admission 12. Encourage annual influenza vaccine 13. Encourage pneumonia vaccine Outcome: Progressing Note: Evaluation of progress towards goal: Pt afebrile at this time, continue to monitor for signs infection Problem: Knowledge Deficit Goal: Patient/patient provider relations representative demonstrates understanding of disease process, treatment plan,medications, and discharge instructions Description: INTERVENTIONS 1. Complete learning assessment and assess knowledge base 2. Provide teaching at level of understanding 3. Provide teaching via preferred learning method(s) Outcome: Progressing Note: Evaluation of progress towards goal: POC discussed with patient. Questions answered PRN. [facility]06-18-2024 Plan of care note* Plan of Care - Rachel Almanzar RN - 01/30/2024 6:16 PM EDT Problem: Pain Goal: Patient goal is pain score less than 4, able to rest, and participant in treatment plan as appropriate Description: INTERVENTIONS: 1. Encourage patient or legal provider relations representative to report early pain and ask [...] per policy 9. Teach patient or legal provider relations representative interventions for comforting Outcome: Progressing Note: Evaluation of progress towards goal: Encourage patient or legal provider relations representative to report early pain and ask [...] at the bedside 7. Instruct patient/ patient provider relations representative about use of safety devices 8. Include patient/ patient provider relations representative in decisions related to safety Outcome: [...] hygiene technique 7. Identify and instruct patient/patient provider relations representative in use of appropriate isolation precautionsfor identified infection/symptoms 8. Provide and discuss with patient/patient provider relations representative on educational MDRO sheet 9. Encourage and monitor nutritional status daily and consult validation manager if indicated 10. Implement neutropenic guidelines as [...] and monitor nutritional status daily and consult validation manager if indicated. Encourage annual influenza vaccine and pneumonia vaccine. [facility] NoteXR FEMUR RT 2+ VIEWS Clinical history: [...] by Jun Ortega MD on 01/30/2024 1:28 [facility] 01-30-2024 NoteClinical history: Postop hardware evaluation Right [...] by Jun Ortega MD on 01/30/2024 1:28 [id number] Procedure note* Op Note - Ang Figueroa MD - 01/30/2024 9:23 AM EDT DATE OF OPERATION: January 30, 2024 PREOPERATIVE DIAGNOSIS: 1. right intertrochanteric hip fracture with new periprosthetic subtrochanteric fracture after a second fall at rehab POSTOPERATIVE DIAGNOSIS: 1. Same OPERATION: 1. IM nail right intertrochanteric/subtrochanteric hip fracture.- 19812 2. Removal hardware Right femur - SURGEON: Ang Figueroa MD CONDUCTOR PULLMAN: Jalen Gan MD ANESTHESIA: General. MEDICATIONS: vanc [...] was then placed by using a perfect [place] technique with fluoroscopy. The drill bit was [...] at time of surgery. ANG FIGUEROA MD [facility]06-18-2024 Attending History and physical note* Ang Figueroa [...] based on above criteria. Ang Figueroa MD. [employer] Work Phone: 1(671) 991-244906-18-2024 History and physical note* Ang Figueroa MD [...] Frazier MD - 01/29/2024 10:52 AM EDT [facility] H[facility]ORY AND PHYSICAL EXAM Patient's [...] right intertrochanteric hip fracture, [facility]. Patient was recently discharged to [facility] after right intertrochanteric hip fracture surgery. Two days ago, on Monday, patient failed and landed on his right hip causing worsening pain.Initial hip x-ray at that time was unremarkable without evidence of fracture. However, pain did notimprove and progressively worsen. CT brain hip demonstrated periprosthetic right hip fracture. Therefore, he was transferred to [facility] for surgical intervention. Patient was seen and [...] from lisinopril Chronic pain disorder Colon cancer ([facility]) COPD (chronic obstructive pulmonary disease) ([facility]) Depression Diabetes mellitus type 2, controlled ([facility]) Fibromyalgia, primary Fracture of right hip, closed, initial encounter ([facility]) 01/17/2024 GERD (gastroesophageal reflux disease) Hyperlipidemia Hypertension Insulin-treated type 2 diabetes mellitus ([facility]) Joint pain Kidney stones Liver disease Low back pain Neck pain Obesity Osteoarthritis Visual impairment PAST SURGICAL HISTORY: Past Surgical History: Procedure Laterality Date BACK SURGERY COLON SURGERY resection, 2018, [facility] DAVINCI REPAIR HERNIA VENTRAL N/A 10/27/2021 Performed by Ridge Cedillo MD at [facility] DENTAL SURGERY pt had all teeth removed HERNIA REPAIR x's 2 INSERTION INTRAMEDULLARY NAIL FEMUR-TFNA HIP FX Right 01/18/2024 Performed by Ang Figueroa MD at [facility] ORTHOPEDIC SURGERY 2008 foot, infected foot PAST [...] min Stress: No Stress Concern Present (01/22/2024) [employer]o Holcomb of Occupational Health - Occupational Stress Questionnaire Feeling of Stress : Not at all Social Connections: Socially Isolated (01/22/2024) Social Connection and Isolation Panel [NHANES] Frequency of Communication with Friends and Family: More than three times a week Frequency of Social Gatherings with Friends and Family: More than three times a week Attends Yazidi Services: Never Active Member of Clubs or [...] Singh Cervantes DO on 01/17/2024 3:49 AM I, Sylvester [...] and corrected by editing. [facility] Progress note* PT/OT/MARKETING INFORMATION ANALYST - Nohemy Han OTR/Lanie - 01/30/2024 8:43 AM EDT Occupational Therapy CANCEL - Deferred OT attempted. Pt off floor at surgery. Will check back as able. eblizz [id number] Progress note* PT/OT/MARKETING INFORMATION ANALYST - Lindsay Ifnante, PT - 01/30/2024 8:41 AM EDT Physical Therapy CANCEL - Deferred (Pt currently off the unit in surgery. Will complete PT eval post-op as able.) eblizz [id number] Plan of care note* Plan of Care - Santi Parks RN - 01/29/2024 8:51 PM EDT Problem: Pain Goal: Patient goal is pain score less than 4, able to rest, and participant in treatment plan as appropriate Description: INTERVENTIONS: 1. Encourage patient or legal provider relations representative to report early pain and ask [...] per policy 9. Teach patient or legal provider relations representative interventions for comforting Outcome: Progressing Note: [...] at the bedside 7. Instruct patient/ patient provider relations representative about use of safety devices 8. Include patient/ patient provider relations representative in decisions related to safety Outcome: [...] hygiene technique 7. Identify and instruct patient/patient provider relations representative in use of appropriate isolation precautionsfor identified infection/symptoms 8. Provide and discuss with patient/patient provider relations representative on educational MDRO sheet 9. Encourage and monitor nutritional status daily and consult validation manager if indicated 10. Implement neutropenic guidelines as needed 11. Review exposure to history of communicable disease and recent travel history on admission 12. Encourage annual influenza vaccine 13. Encourage pneumonia vaccine Outcome: Progressing Note: Evaluation of progress towards goal: Pt afebrile at this time, continue to monitor for signs infection Problem: Knowledge Deficit Goal: Patient/patient provider relations representative demonstrates understanding of disease process, treatment plan,medications, and discharge instructions Description: INTERVENTIONS 1. Complete learning assessment and assess knowledge base 2. Provide teaching at level of understanding 3. Provide teaching via preferred learning method(s) Outcome: Progressing Note: Evaluation of progress towards goal: POC discussed with patient. Questions answered PRN. [facility]06-17-2024 Consult note* Marsha Flores APRN-MANAGER UNIVERSAL - 01/29/2024 12:43 PM EDTAssociated Order(s): CONSULT [...] from lisinopril Chronic pain disorder Colon cancer ([facility]) COPD (chronic obstructive pulmonary disease) ([facility]) Depression Diabetes mellitus type 2, controlled ([facility]) Fibromyalgia, primary Fracture of right hip, closed, initial encounter ([facility]) 01/17/2024 GERD (gastroesophageal reflux disease) Hyperlipidemia Hypertension Insulin-treated type 2 diabetes mellitus ([facility]) Joint pain Kidney stones Liver disease Low back pain Neck pain Obesity Osteoarthritis Visual impairment PAST SURGICAL HISTORY: Past Surgical History: Procedure Laterality Date BACK SURGERY COLON SURGERY resection, 2018, [facility] DAVINCI REPAIR HERNIA VENTRAL N/A 10/27/2021 Performed by Ridge Cedillo MD at [facility] D[facility]ERY pt had all teeth removed HERNIA REPAIR x's 2 INSERTION INTRAMEDULLARY NAIL FEMUR-TFNA HIP FX Right 01/18/2024 Performed by Ang Figueroa MD at [facility] ORTHOPEDIC SURGERY 2008 foot, infected foot PAST [...] min Stress: No Stress Concern Present (01/22/2024) Lao Holcomb of Occupational Health - Occupational Stress Questionnaire Feeling of Stress : Not at all Social Connections: Socially Isolated (01/22/2024) Social Connection and Isolation Panel [NHANES] Frequency of Communication with Friends and Family: More than three times a week Frequency of Social Gatherings with Friends and Family: More than three times a week Attends Yazidi Services: Never Active Member of Clubs or [...] intravenous Q6H DAGO Quezada Stopped at 01/28/24 4339 Current Outpatient Medications on File Prior to [...] 5 (L) 01/29/2024 IRONSAT 16 (L) 01/17/2024 [id number] 01/29/2024 [id number] 01/17/2024 FOLATE 8.4 01/29/2024 FOLATE 9.3 [...] Flores NP Patient Blood Management/Bloodless Medicine Office [phone] DAGO Medrano 01/29/24 1342 [employer] Work Phone: 1(770) 219-804706-17-2024 History and physical note* Demond Frazier MD - 01/29/2024 10:52 AM EDT [facility] H[facility] AND PHYSICAL EXAM Patient's [...] right intertrochanteric hip fracture, was [facility]. Patient was recently discharged to [facility] after right intertrochanteric hip fracture surgery. Two days ago, on Monday, patient failed and landed on his right hip causing worsening pain.Initial hip x-ray at that time was unremarkable without evidence of fracture. However, pain did notimprove and progressively worsen. CT brain hip demonstrated periprosthetic right hip fracture. Therefore, he was transferred to [facility] for surgical intervention. Patient was seen and [...] from lisinopril Chronic pain disorder Colon cancer ([facility]) COPD (chronic obstructive pulmonary disease) ([facility]) Depression Diabetes mellitus type 2, controlled ([facility]) Fibromyalgia, primary Fracture of right hip, closed, initial encounter ([facility]) 01/17/2024 GERD (gastroesophageal reflux disease) Hyperlipidemia Hypertension Insulin-treated type 2 diabetes mellitus ([facility]) Joint pain Kidney stones Liver disease Low back pain Neck pain Obesity Osteoarthritis Visual impairment PAST SURGICAL HISTORY: Past Surgical History: Procedure Laterality Date BACK SURGERY COLON SURGERY resection, 2018, [facility] DAVINCI REPAIR HERNIA VENTRAL N/A 10/27/2021 Performed by Ridge Cedillo MD at [facility] pt had all teeth removed HERNIA REPAIR x's 2 INSERTION INTRAMEDULLARY NAIL FEMUR-TFNA HIP FX Right 01/18/2024 Performed by Ang Figueroa MD at [facility] ORTHOP[facility]IC SURGERY 2008 foot, infected foot PAST [...] min Stress: No Stress Concern Present (01/22/2024) Lao Holcomb of Occupational Health - Occupational Stress Questionnaire Feeling of Stress : Not at all Social Connections: Socially Isolated (01/22/2024) Social Connection and Isolation Panel [NHANES] Frequency of Communication with Friends and Family: More than three times a week Frequency of Social Gatherings with Friends and Family: More than three times a week Attends Yazidi Services: Never Active Member of Clubs or [...] has been identified and corrected by editing. [facility] Work Phone: 1(451) 925-714206-17-2024 Emergency department Triage note* Scarlett Yang RN - 01/29/2024 10:35 AM EDT Pt arrives to ED from Dr. Figueroa's office. Pt had a right hip replacement per Dr. Figueroa on 01/17 and hasbeen recovering at inpatient rehab at [facility] since then. Pt had a fall on 01/26 and imaging confirmed that he had a new right femur fx around the recently placed kateryna. Pt was seen for the first time this morning by Dr. Figueroa who wanted pt sent to [facility] ER for admission to go to OR and have surgery. Ptis alert and oriented during triage appearing to be in severe pain after movement to stretcher. [facility]06-17-2024 Emergency department Note* Scarlett Yang RN - 01/29/2024 10:35 AM EDT Pt arrives to ED from Dr. Figueroa's office. Pt had a right hip replacement per Dr. Figueroa on 01/17 and hasbeen recovering at inpatient rehab at [facility] since then. Pt had a fall on [...] hospitalist - OR tomorrow documented in this encounterF[facility]06[facility] Emergency department Note* Zuly Liu RN - 01/29/2024 10:26 AM EDT Bed: 16 Expected date: Expected time: Means of arrival: Comments: Dr. Figueroa office call ahead Ruth Gray Fell post of hip fracture - broke around nail from recent hip fracture -needs admitted to hospitalist - OR tomorrow [facility] [employer] [id number] History of Present illness Narrative* Jalen Gan [...] subtrochanteric fracture of right femur, initial encounter ([facility]) PLAN: Nonweightbearing to the right [...] criteria. Ang Figueroa MD. documented in this encounterF[facility]06[facility] Miscellaneous Notes* Discharge Planning Note - Mendoza Pritchett - 01/22/2024 4:03 PM EDT DISCHARGE PLANNING NOTE CRF sent to [facility] * Discharge Planning Note - JEWEL Crenshaw - 01/22/2024 3:40 PM EDT Images from the original note were not included. DISCHARGE PLANNING NOTE DC plan will be IPR: [facility] rehab has accepted pt. Pt is agreeable to [facility]. No auth needed. Pt will discharge today. Transport arranged for 5pm. Patient, RN, facility all aware. CRF sent. W/C tx cert in dc packet Services Requested: Services Requested Discharge Disposition: Acute rehab Acute Rehab Name: [facility] Acute Rehab Does the patient need discharge transportation arranged?: Yes Patient choice offered: Yes List Provided: Yes [facility] List Provided: [facility] Initial DC Assessment Completed: Yes Patient Goals: Goals: Goals <enter goal here> (pt-stated) Evaluation of progress towards goal: possible rehab placement vs home pending progress, recommendations and pt decision - JEWEL Crenshaw 01/22/24 3:44 PM * Discharge Planning Note - Cata Maravilla - 01/22/2024 3:00 PM EDT DISCHARGE PLANNING NOTE Confirmed WC from PTN via [employer] for 5:00pm shrimp picker from [facility], transport to [facility] They are subbing with BLS * Discharge Planning Note - Mendoza Pritchett - 01/22/2024 2:06 PM EDT DISCHARGE PLANNING NOTE Referral sent to [facility] of [facility] P# [phone] [calling report];/[facility] (P# [calling report]; F# ) * Discharge Planning Note - JEWEL Crenshaw - 01/22/2024 2:01 PM EDT DISCHARGE PLANNING NOTE [facility] [...] Description: INTERVENTIONS: 1. Encourage patient or legal provider relations representative to report early pain and ask [...] per policy 9. Teach patient or legal provider relations representative interventions for comforting Outcome: Adequate for [...] at the bedside 7. Instruct patient/ patient provider relations representative about use of safety devices 8. Include patient/ patient provider relations representative in decisions related to safety Outcome: [...] hygiene technique 7. Identify and instruct patient/patient provider relations representative in use of appropriate isolation precautionsfor identified infection/symptoms 8. Provide and discuss with patient/patient provider relations representative on educational MDRO sheet 9. Encourage and monitor nutritional status daily and consult validation manager if indicated 10. Implement neutropenic guidelines as [...] any changes. Problem: Knowledge Deficit Goal: Patient/patient provider relations representative demonstrates understanding of disease process, treatment [...] be free from fall Description: Interventions: 1. [place] to environment 2. Hourly rounds addressing the [...] non-skid footwear 11. Teach patient and patient provider relations representative to maintain environment for safety and [...] (cane, walker) within reach 19. Request patient provider relations representative bring adaptive equipment/mobility aids from home or obtain and provide as needed 20. Consult pharmacy regarding effects of med's affecting mobility, cognition, and alternatives 21. Obtain physician order for PT if risk factors associated with mobility are present 22. Obtain physician order for OT as appropriate 23. Utilize diversional activities 24. Educate patient and patient provider relations representative how to maintain a safe environment during visitationtimes (notify nurse prior to leaving bedside) 25. Consider appropriateness of medical or non-biomedical engineering technician 26. Set up voiding schedule as appropriate [...] pt and pt would like to try [facility]. Referral sent. Awaiting acceptance. W/C tx cert in dc packet. - JEWEL Crenshaw 01/22/24 11:19 AM * Discharge Planning Note - Jackie Caal - 01/22/2024 11:13 AM EDT DISCHARGE PLANNING NOTE [facility] [place] (P# ; F# ) * PT/OT/MARKETING INFORMATION ANALYST - ALICIA Banda - 01/22/2024 8:31 AM [...] belt, RW Weight Bearing Status: WBAT RLE Telemetry/Surgical Endoscopist: No Oxygen Used: room air Other: fall [...] and was able to exchange L sock. Door Trimmer assisted with R foot. Pt then donned [...] and was able to exchange L sock. Door Trimmer assisted with R foot. Pt then donned [...] OT Outcomes Date/Time User Outcome 01/22/24 1054 WILLARD Banda/Lanie Progressing 01/21/24 1650 MALATHI Grey/Lanie Progressing 01/21/24 1053 MALATHI Grey/Lanie Progressing 01/20/24 1610 CHARU MenesesA/Lanie Progressing 01/20/24 0945 CHARU MenesesA/Lanie Progressing 01/19/24 1531 CHARU HernandezA/Lanie Progressing Goal Note filed on 01/22/24 1054 by WILLARD Banda/Lanie Evaluation of progress towards goal: Problem: Bed Mobility Dates: Start: 01/19/24 Disciplines: OT Goal: Patient will perform bed mobility with Modified [place] Dates: Start: 01/19/24 Expected End: 02/09/24 Description: [...] Patient will perform functional mobility with Modified [place] Dates: Start: 01/19/24 Expected End: 02/09/24 Description: [...] OT Outcomes Date/Time User Outcome 01/22/24 1054 Lduy Ireland OTR/L Progressing 01/21/24 1650 Ludy Vogt, [...] Goal: Patient will perform transfers with Modified [place] Dates: Start: 01/19/24 Expected End: 02/09/24 Description: Goal Description: Disciplines: OT Outcomes Date/Time User Outcome 01/22/24 1054 WILLARD Banda/Lanie Progressing 01/21/24 1650 Ludy Vogt SERVIN/L Progressing 01/21/24 1053 Ludy Vogt SERVIN/L Not Progressing 01/20/24 1610 Katlin Goins SERVIN/L Progressing 01/20/24 0945 Katlin Goins, SERVIN/L Progressing 01/19/24 1531 Nano Maher, SERVIN/L Progressing Goal Note filed on 01/22/24 1054 by ALICIA Banda Evaluation of progress towards goal: Occupational Therapy Care Plan (Resolved) There are no resolved problems. Principal Problem: Closed fracture of right hip, initial encounter ([facility]) Active Problems: Closed displaced intertrochanteric fracture of right femur ([facility]) * PT/OT/MARKETING INFORMATION ANALYST - Shahrzad Garcias PTA - 01/22/2024 8:30 [...] 6 Clicks: Basic Mobility Raw Score: 14 [facility] G Code Modifier: CK Therapy Plan PT [...] RW Weight Bearing Status: WBAT R LE Telemetry/Surgical Endoscopist: No Oxygen Used: room air Other: fall [...] complete. Pt used gait belt as leg rough carpenter to assist RLE OOB. Pt tends to hold his breath with transitions and displays difficulty foloring direction for breathing technique from song writer. Pt reporting dizziness intially upon sitting [...] Shahrzad Garcias PTA Progressing 01/19/24 1721 Shahrzad Garcias, SHERYL Progressing Goal Note filed on 01/22/24 1051 by Shahrzad Garcias PTA Evaluation of progress towards goal: Problem: Bed Mobility Dates: Start: 01/19/24 Disciplines: PT Goal: Patient will perform bed mobility with Minimum Assist Dates: Start: 01/19/24 Expected End: 02/02/24 Description: Goal Description: Disciplines: PT Outcomes Date/Time User Outcome 01/22/24 1051 Shahrzad Garcias, PROPERTY MANAGEMENT ASSISTANT Progressing 01/21/24 1741 Shahrzad Garcias, PROPERTY MANAGEMENT ASSISTANT Progressing 01/21/24 1309 Shahrzad Garcias, PROPERTY MANAGEMENT ASSISTANT Progressing 01/20/24 1607 Shahrzad Garcias, PROPERTY MANAGEMENT ASSISTANT Progressing 01/20/24 1036 Shahrzad Garcias, PROPERTY MANAGEMENT ASSISTANT Progressing 01/19/24 1721 Shahrzad Garcias, PROPERTY MANAGEMENT ASSISTANT Progressing Goal Note filed on 01/22/24 1051 by Shahrzad Garcias PTA Evaluation of progress towards goal: Problem: Gait Dates: Start: 01/19/24 Disciplines: PT Goal: Patient will perform gait with Contact Guard Dates: Start: 01/19/24 Expected End: 02/02/24 Description: With_rw___,__150__feet Goal Description: Disciplines: PT Outcomes Date/Time User Outcome 01/22/24 1051 Shahrzad Garcias, PROPERTY MANAGEMENT ASSISTANT Progressing 01/21/24 1741 Shahrzad Garcias, PROPERTY MANAGEMENT ASSISTANT Progressing 01/21/24 1309 Shahrzad Garcias, PROPERTY MANAGEMENT ASSISTANT Progressing 01/20/24 1607 Shahrzad Garcias, PROPERTY MANAGEMENT ASSISTANT Progressing 01/20/24 1036 Shahrzad Garcias, PROPERTY MANAGEMENT ASSISTANT Progressing 01/19/24 1721 Shahrzad Garcias, SHERYL Progressing Goal Note filed on 01/22/24 1051 by Shahrzad Garcias PTA Evaluation of progress towards goal: Problem: Standing Balance Dates: Start: 01/19/24 Disciplines: PT Goal: Improve balance to good Dates: Start: 01/19/24 Expected End: 02/02/24 Description: Static Dynamic- good (-) with support of rw Disciplines: PT Outcomes Date/Time User Outcome 01/22/24 1051 Shahrzad Garcias, PROPERTY MANAGEMENT ASSISTANT Progressing 01/21/24 1741 Shahrzad Garcias, PROPERTY MANAGEMENT ASSISTANT Progressing 01/21/24 1309 Shahrzad Garcias, PROPERTY MANAGEMENT ASSISTANT Not Progressing 01/20/24 1036 Shahrzad Garcias, PROPERTY MANAGEMENT ASSISTANT Progressing 01/19/24 1721 Shahrzad Garcias, SHERYL Progressing Goal Note filed on 01/22/24 1051 by Shahrzad Garcias PTA Evaluation of progress towards goal: Problem: Strength Dates: Start: 01/19/24 Disciplines: PT Goal: Improve strength Dates: Start: 01/19/24 Expected End: 02/02/24 Description: Of extremity/ location:Complete 20 reps bilat UE/LE ex's To facilitate: Disciplines: PT Outcomes Date/Time User Outcome 01/22/24 1051 Shahrzad Garcias, PROPERTY MANAGEMENT ASSISTANT Progressing 01/21/24 1741 Shahrzad Garcias, PROPERTY MANAGEMENT ASSISTANT Progressing 01/21/24 1309 Shahrzad Garcias, PROPERTY MANAGEMENT ASSISTANT Progressing 01/20/24 1607 Shahrzad Garcias, PROPERTY MANAGEMENT ASSISTANT Progressing 01/20/24 1036 Shahrzad Garcias, PROPERTY MANAGEMENT ASSISTANT Progressing 01/19/24 1721 Shahrzad Garcias PTA Progressing [...] Garcias, SHERYL Progressing 01/21/24 1309 Shahrzad Garcias, PROPERTY MANAGEMENT ASSISTANT Not Progressing 01/20/24 1607 Shahrzad Garcias, PROPERTY MANAGEMENT ASSISTANT Progressing 01/20/24 1036 Shahrzad Garcias, PROPERTY MANAGEMENT ASSISTANT Progressing 01/19/24 1721 Shahrzad Garcias PTA Progressing Goal Note filed on 01/22/24 1051 by Shahrzad Garcias PTA Evaluation of progress towards goal: Physical Therapy Care Plan (Resolved) There are no resolved problems. Principal Problem: Closed fracture of right hip, initial encounter ([facility] [place] Active Problems: Closed displaced intertrochanteric fracture of right femur (CMS-HCC) Associated attestation - Brady Jauregui PT - [...] Description: INTERVENTIONS: 1. Encourage patient or legal provider relations representative to report early pain and ask [...] per policy 9. Teach patient or legal provider relations representative interventions for comforting Outcome: Progressing Note: [...] at the bedside 7. Instruct patient/ patient provider relations representative about use of safety devices 8. Include patient/ patient provider relations representative in decisions related to safety Outcome: [...] hygiene technique 7. Identify and instruct patient/patient provider relations representative in use of appropriate isolation precautionsfor identified infection/symptoms 8. Provide and discuss with patient/patient provider relations representative on educational MDRO sheet 9. Encourage and monitor nutritional status daily and consult validation manager if indicated 10. Implement neutropenic guidelines as needed 11. Review exposure to history of communicable disease and recent travel history on admission 12. Encourage annual influenza vaccine 13. Encourage pneumonia vaccine Outcome: Progressing Note: Evaluation of progress towards goal: Pt afebrile at this time, continue to monitor for signs infection Problem: Knowledge Deficit Goal: Patient/patient provider relations representative demonstrates understanding of disease process, treatment plan,medications, and discharge instructions Description: INTERVENTIONS 1. Complete learning assessment and assess knowledge base 2. Provide teaching at level of understanding 3. Provide teaching via preferred learning method(s) Outcome: Progressing Note: Evaluation of progress towards goal: POC discussed with patient. Questions answered PRN. * PT/OT/MARKETING INFORMATION ANALYST - NALLELY Grey 01/21/2024 5:01 PM EDT Occupational Therapy Treatment [...] RW Weight Bearing Status: WBAT Rt LE Telemetry/Surgical Endoscopist: No Oxygen Used: room air Other: fall [...] Patient will perform bed mobility with Modified Shoshone Dates: Start: 01/19/24 Expected End: 02/09/24 Description: Goal Description: Disciplines: OT Outcomes Date/Time User Outcome 01/21/24 1053 Ludy Vogt, SERVIN/L Progressing 01/20/24 1610 Katlin Goins, SERVIN/L Progressing 01/20/24 0945 Katlin Goins, SERVIN/L Progressing 01/19/24 1531 Nano Maher, SERVIN/L Progressing Problem: Functional Mobility Dates: Start: 01/19/24 Disciplines: OT Goal: Patient will perform functional mobility with Modified Shoshone Dates: Start: 01/19/24 Expected End: 02/09/24 Description: [...] Vogt, SERVIN/L Progressing 01/19/24 1531 Nano Maher, ESRVIN/L Progressing Problem: Transfers Dates: Start: 01/19/24 Disciplines: OT Goal: Patient will perform transfers with Modified Shoshone Dates: Start: 01/19/24 Expected End: 02/09/24 Description: [...] Closed fracture of right hip, initial encounter ([facility]) Active Problems: Closed displaced intertrochanteric fracture of right femur ([facility] [place]) Associated attestation - Ludy Ireland OTR/L - [...] Description: INTERVENTIONS: 1. Encourage patient or legal provider relations representative to report early pain and ask [...] per policy 9. Teach patient or legal provider relations representative interventions for comforting Outcome: Progressing Note: [...] at the bedside 7. Instruct patient/ patient provider relations representative about use of safety devices 8. Include patient/ patient provider relations representative in decisions related to safety Outcome: [...] hygiene technique 7. Identify and instruct patient/patient provider relations representative in use of appropriate isolation precautionsfor identified infection/symptoms 8. Provide and discuss with patient/patient provider relations representative on educational MDRO sheet 9. Encourage and monitor nutritional status daily and consult validation manager if indicated 10. Implement neutropenic guidelines as needed 11. Review exposure to history of communicable disease and recent travel history on admission 12. Encourage annual influenza vaccine 13. Encourage pneumonia vaccine Outcome: Progressing Problem: Knowledge Deficit Goal: Patient/patient provider relations representative demonstrates understanding of disease process, treatment [...] discharge planning process 5. Communicate referral to natural resources extension educator as appropriate 6. Communicate referral to validation manager as appropriate 7. Collaborate with case management/social contact worker for discharge needs Outcome: Progressing Problem: Moderate - High Risk Fall Score Description: Arredondo Fall Score of =/> 25 or indicated by [facility] Assessment Goal: Patient should be free from fall Description: Interventions: 1. [place] to environment 2. Hourly rounds addressing the [...] non-skid footwear 11. Teach patient and patient provider relations representative to maintain environment for safety and [...] (cane, walker) within reach 19. Request patient provider relations representative bring adaptive equipment/mobility aids from home or obtain and provide as needed 20. Consult pharmacy regarding effects of med's affecting mobility, cognition, and alternatives 21. Obtain physician order for PT if risk factors associated with mobility are present 22. Obtain physician order for OT as appropriate 23. Utilize diversional activities 24. Educate patient and patient provider relations representative how to maintain a safe environment during visitationtimes (notify nurse prior to leaving bedside) 25. Consider appropriateness of medical or non-biomedical engineering technician 26. Set up voiding schedule as appropriate (every 2 hours) Outcome: Progressing Note: Evaluation of progress towards goal: Fall precautions in place including bed locked and in lowest position, call light within reach and non skid socks on. Patient calls out appropriately for help. Hourly rounding in place. * PT/OT/MARKETING INFORMATION ANALYST - Shahrzad Garcias PTA - 01/21/2024 3:32 [...] RW Weight Bearing Status: WBAT Rt LE Telemetry/Surgical Endoscopist: No Oxygen Used: room air Other: fall [...] Date/Time User Outcome 01/21/24 1741 Shahrzad Garcias, PROPERTY MANAGEMENT ASSISTANT Progressing 01/21/24 1309 Shahrzad Garcias, PROPERTY MANAGEMENT ASSISTANT Progressing 01/20/24 1607 Shahrzad Garcias, PROPERTY MANAGEMENT ASSISTANT Progressing 01/20/24 1036 Shahrzad aGrcias, PROPERTY MANAGEMENT ASSISTANT Progressing 01/19/24 1721 Shahrzad Garcias, SHERYL Progressing Goal Note filed on 01/21/24 174 by Shahrzad Garcias PTA Evaluation of progress towards goal: Problem: Gait Dates: Start: 01/19/24 Disciplines: PT Goal: Patient will perform gait with Contact Guard Dates: Start: 01/19/24 Expected End: 02/02/24 Description: With_rw___,__150__feet Goal Description: Disciplines: PT Outcomes Date/Time User Outcome 01/21/24 174 Shahrzad Garcias, PROPERTY MANAGEMENT ASSISTANT Progressing 01/21/24 1309 Shahrzad Garcias, PROPERTY MANAGEMENT ASSISTANT Progressing 01/20/24 1607 Shahrzad Garcias, PROPERTY MANAGEMENT ASSISTANT Progressing 01/20/24 1036 Shahrzad Garcais, PROPERTY MANAGEMENT ASSISTANT Progressing 01/19/24 1721 Shahrzad Garcias, SHERYL Progressing Goal Note filed on 01/21/24 174 by Shahrzad Garcias PTA Evaluation of progress towards goal: Problem: Standing Balance Dates: Start: 01/19/24 Disciplines: PT Goal: Improve balance to good Dates: Start: 01/19/24 Expected End: 02/02/24 Description: Static Dynamic- good (-) with support of rw Disciplines: PT Outcomes Date/Time User Outcome 01/21/24 1741 Shahrzad Garcias, PROPERTY MANAGEMENT ASSISTANT Progressing 01/21/24 1309 Shahrzad Garcias, PROPERTY MANAGEMENT ASSISTANT Not Progressing 01/20/24 1036 Shahrzad Garcias, PROPERTY MANAGEMENT ASSISTANT Progressing 01/19/24 1721 Shahrzad Garcias, SHERYL Progressing Goal Note filed on 01/21/24 174 by Shahrzad Garcias PTA Evaluation of progress towards goal: Problem: Strength Dates: Start: 01/19/24 Disciplines: PT Goal: Improve strength Dates: Start: 01/19/24 Expected End: 02/02/24 Description: Of extremity/ location:Complete 20 reps bilat UE/LE ex's To facilitate: Disciplines: PT Outcomes Date/Time User Outcome 01/21/24 1741 Shahrzad Garcias, PROPERTY MANAGEMENT ASSISTANT Progressing 01/21/24 1309 Shahrzad Garcias, PROPERTY MANAGEMENT ASSISTANT Progressing 01/20/24 1607 Shahrzad Garcias, PROPERTY MANAGEMENT ASSISTANT Progressing 01/20/24 1036 Shahrzad Garcias, PROPERTY MANAGEMENT ASSISTANT Progressing 01/19/24 1721 Shahrzad Garcias, PROPERTY MANAGEMENT ASSISTANT Progressing Goal Note filed on 01/21/24 174 by Shahrzad Garcias PTA Evaluation of progress towards goal: Problem: Transfers Dates: Start: 01/19/24 Disciplines: PT Goal: Patient will perform transfers with Contact Guard Dates: Start: 01/19/24 Expected End: 02/02/24 Description: Goal Description: Disciplines: PT Outcomes Date/Time User Outcome 01/21/24 1741 Shahrzad Garcias, PROPERTY MANAGEMENT ASSISTANT Progressing 01/21/24 1309 Shahrzad Garcias, PROPERTY MANAGEMENT ASSISTANT Not Progressing 01/20/24 1607 Shahrzad Garcias, PROPERTY MANAGEMENT ASSISTANT Progressing 01/20/24 1036 Shahrzad Garcias, PROPERTY MANAGEMENT ASSISTANT Progressing 01/19/24 1721 Shahrzad Garcias, PROPERTY MANAGEMENT ASSISTANT Progressing Goal Note filed on 01/21/24 174 by Shahrzad Garcias PTA Evaluation of progress towards goal: Physical Therapy Care Plan (Resolved) There are no resolved problems. Principal Problem: Closed fracture of right hip, initial encounter ([facility]) Active Problems: Closed displaced intertrochanteric fracture of right femur ([facility]) Associated attestation - Brady Jauregui PT - 01/22/2024 4:19 PM EDT I have reviewed and agree with this note and education documentation for this visit. * PT/OT/MARKETING INFORMATION ANALYST - NALLELY Grey - 01/21/2024 11:13 AM [...] pole Weight Bearing Status: WBAT Rt LE Telemetry/Surgical Endoscopist: No Oxygen Used: room air Other: fall [...] pt utilizing looped gait belt as leg rough carpenter for RLE to advance toward EOB. Pt [...] Patient will perform bed mobility with Modified Shoshone Dates: Start: 01/19/24 Expected End: 02/09/24 Description: Goal Description: Disciplines: OT Outcomes Date/Time User Outcome 01/21/24 1053 Ludy Vogt, SERVIN/L Progressing 01/20/24 1610 Katlin Goins, SERVIN/L Progressing 01/20/24 0945 Katlin Goins, SERVIN/L Progressing 01/19/24 1531 Nano Maher SERVIN/L Progressing Problem: Functional Mobility Dates: Start: 01/19/24 Disciplines: OT Goal: Patient will perform functional mobility with Modified Shoshone Dates: Start: 01/19/24 Expected End: 02/09/24 Description: [...] Goal: Patient will perform transfers with Modified Shoshone Dates: Start: 01/19/24 Expected End: 02/09/24 Description: Goal Description: Disciplines: OT Outcomes Date/Time User Outcome 01/21/24 1053 Ludy Vogt, SERVIN/L Not Progressing 01/20/24 1610 Katlin Goins SERVIN/L Progressing 01/20/24 0945 Katlin Goins, SERVIN/L Progressing 01/19/24 1531 Nano Maher, SERVIN/L Progressing Occupational Therapy Care Plan (Resolved) There are no resolved problems. Principal Problem: Closed fracture of right hip, initial encounter ([facility]) Active Problems: Closed displaced intertrochanteric fracture of right femur ([facility] [place] Associated attestation - Virgil Nunes OTR/L - 01/21/2024 12:48 PM EDT I have reviewed and agree with this note and education documentation for this visit. * PT/OT/MARKETING INFORMATION ANALYST - Shahrzad Garcias PTA - 01/21/2024 9:49 [...] pole Weight Bearing Status: WBAT Rt LE Telemetry/Surgical Endoscopist: No Oxygen Used: room air Other: fall [...] railing required to complete. Use of limb rough carpenter for RLE support OOB. Increased time and [...] Date/Time User Outcome 01/21/24 1309 Shahrzad Garcias, PROPERTY MANAGEMENT ASSISTANT Progressing 01/20/24 1607 Shahrzad Garcias, PROPERTY MANAGEMENT ASSISTANT Progressing 01/20/24 1036 Shahrzad Garcias, PROPERTY MANAGEMENT ASSISTANT Progressing 01/19/24 1721 Shahrzad Garcias PTA Progressing Goal Note filed on 01/21/24 1309 by Shahrzad Garcias PTA Evaluation of progress towards goal: Problem: Bed Mobility Dates: Start: 01/19/24 Disciplines: PT Goal: Patient will perform bed mobility with Minimum Assist Dates: Start: 01/19/24 Expected End: 02/02/24 Description: Goal Description: Disciplines: PT Outcomes Date/Time User Outcome 01/21/24 1309 Shahrzad Garcias PROPERTY MANAGEMENT ASSISTANT Progressing 01/20/24 1607 Shahrzad Garcias, PROPERTY MANAGEMENT ASSISTANT Progressing 01/20/24 1036 Shahrzad Garcias, PROPERTY MANAGEMENT ASSISTANT Progressing 01/19/24 1721 Shahrzad Garcias PTA Progressing Goal Note filed on 01/21/24 1309 by Shahrzad Garcias PTA Evaluation of progress towards goal: Problem: Gait Dates: Start: 01/19/24 Disciplines: PT Goal: Patient will perform gait with Contact Guard Dates: Start: 01/19/24 Expected End: 02/02/24 Description: With_rw___,__150__feet Goal Description: Disciplines: PT Outcomes Date/Time User Outcome 01/21/24 1309 Shahrzad Garcias, PROPERTY MANAGEMENT ASSISTANT Progressing 01/20/24 1607 Shahrzad Garcias, PROPERTY MANAGEMENT ASSISTANT Progressing 01/20/24 1036 Shahrzad Garcias, PROPERTY MANAGEMENT ASSISTANT Progressing 01/19/24 1721 Shahrzad Garcias PTA Progressing Goal Note filed on 01/21/24 1309 by Shahrzad Garcias PTA Evaluation of progress towards goal: Problem: Standing Balance Dates: Start: 01/19/24 Disciplines: PT Goal: Improve balance to good Dates: Start: 01/19/24 Expected End: 02/02/24 Description: Static Dynamic- good (-) with support of rw Disciplines: PT Outcomes Date/Time User Outcome 01/21/24 1309 Shahrzad Garcias, PROPERTY MANAGEMENT ASSISTANT Not Progressing 01/20/24 1036 Shahrzad Garcias, PROPERTY MANAGEMENT ASSISTANT Progressing 01/19/24 1721 Shahrzad Garcias PTA Progressing Goal Note filed on 01/21/24 1309 by Shahrzad Garcias PTA Evaluation of progress towards goal: Problem: Strength Dates: Start: 01/19/24 Disciplines: PT Goal: Improve strength Dates: Start: 01/19/24 Expected End: 02/02/24 Description: Of extremity/ location:Complete 20 reps bilat UE/LE ex's To facilitate: Disciplines: PT Outcomes Date/Time User Outcome 01/21/24 1309 Shahrzad Garcias, PROPERTY MANAGEMENT ASSISTANT Progressing 01/20/24 1607 Shahrzad Garcias, PROPERTY MANAGEMENT ASSISTANT Progressing 01/20/24 1036 Shahrzad Garcias, PROPERTY MANAGEMENT ASSISTANT Progressing 01/19/24 1721 Shahrzad Gacrias PTA Progressing Goal Note filed on 01/21/24 1309 by Shahrzad Garcias PTA Evaluation of progress towards goal: Problem: Transfers Dates: Start: 01/19/24 Disciplines: PT Goal: Patient will perform transfers with Contact Guard Dates: Start: 01/19/24 Expected End: 02/02/24 Description: Goal Description: Disciplines: PT Outcomes Date/Time User Outcome 01/21/24 1309 Shahrzad Garcias, PROPERTY MANAGEMENT ASSISTANT Not Progressing 01/20/24 1607 Shahrzad Garcias, PROPERTY MANAGEMENT ASSISTANT Progressing 01/20/24 1036 Shahrzad Garcias, SHERYL Progressing 01/19/24 1721 Shahrzad Garcias PTA Progressing Goal Note filed on 01/21/24 1309 by Shahrzad Garcias PTA Evaluation of progress towards goal: Physical Therapy Care Plan (Resolved) There are no resolved problems. Principal Problem: Closed fracture of right hip, initial encounter ([facility]) Active Problems: Closed displaced intertrochanteric fracture of right femur ([facility]) Associated attestation - Carlos Brar, PT - [...] Description: INTERVENTIONS: 1. Encourage patient or legal provider relations representative to report early pain and ask [...] per policy 9. Teach patient or legal provider relations representative interventions for comforting Outcome: Not Progressing [...] it will have on his body. * PT/OT/MARKETING INFORMATION ANALYST - NALLELY Meneses - 01/20/2024 4:21 PM [...] environment. Pt utilized gait belt as leg rough carpenter with cues for tech to A RLE [...] (-) Other: Pt completed standing marches with PROPERTY MANAGEMENT ASSISTANT with heavy BUE support on RW. Pt [...] Patient will perform bed mobility with Modified Shoshone Dates: Start: 01/19/24 Expected End: 02/09/24 Description: Goal Description: Disciplines: OT Outcomes Date/Time User Outcome 01/20/24 1610 Katlin Goins, SERVIN/L Progressing 01/20/24 0945 Katlin Goins, SERVIN/L Progressing 01/19/24 1531 MALATHI Hernandez/Lanie Progressing Problem: Functional Mobility Dates: Start: 01/19/24 Disciplines: OT Goal: Patient will perform functional mobility with Modified [place]oshone Dates: Start: 01/19/24 Expected End: 02/09/24 Description: [...] Goal: Patient will perform transfers with Modified Shoshone Dates: Start: 01/19/24 Expected End: 02/09/24 Description: Goal Description: Disciplines: OT Outcomes Date/Time User Outcome 01/20/24 1610 MALATHI Meneses/Lanie Progressing 01/20/24 0945 MALATHI Meneses/Lanie Progressing 01/19/24 1531 MALATHI Hernandez/Lanie Progressing Occupational Therapy Care Plan (Resolved) There are no resolved problems. Principal Problem: Closed fracture of right hip, initial encounter ([facility] [place] Active Problems: Closed displaced intertrochanteric fracture of right femur ([facility] [place]) Associated attestation - Virgil Nunes OTR/L - 01/21/2024 12:48 PM EDT I have reviewed and agree with this note and education documentation for this visit. * PT/OT/MARKETING INFORMATION ANALYST - Shahrzad Garcias PTA - 01/20/2024 3:15 [...] 6 Clicks: Basic Mobility Raw Score: 11 [facility] G Code Modifier: CL Therapy Plan PT [...] bed railing. Education provided on useof limb rough carpenter to assist RLE OOB. Pt able to [...] Closed fracture of right hip, initial encounter ([facility]) Active Problems: Closed displaced intertrochanteric fracture of right femur ([facility] [place]) Associated attestation - Carlos Brar PT - 01/21/2024 3:57 PM EDT I have reviewed and agree with this note and education documentation for this visit. * PT/OT/MARKETING INFORMATION ANALYST - NALLELY Meneses - 01/20/2024 10:11 AM [...] Utilized gait belt to act as leg rough carpenter; instructed pt to lift R leg to [...] Description: Disciplines: OT Outcomes Date/Time User Outcome 01/20/2445 CHARU MenesesA/L Progressing 01/19/24 1531 NALLELY Hernandez Progressing Problem: Bed Mobility Dates: Start: 01/19/24 Disciplines: OT Goal: Patient will perform bed mobility with Modified [place]oshone Dates: Start: 01/19/24 Expected End: 02/09/24 Description: Goal Description: Disciplines: OT Outcomes Date/Time User Outcome 01/20/2445 CHARU MenesesA/L Progressing 01/19/24 1531 Nano Gunnar, SERVIN/L Progressing Problem: Functional Mobility Dates: Start: 01/19/24 Disciplines: OT Goal: Patient will perform functional mobility with Modified [place] Dates: Start: 01/19/24 Expected End: 02/09/24 Description: Goal Description: Disciplines: OT Outcomes Date/Time User Outcome 01/20/24 09Elpidio Goins SERVIN/L Progressing 01/19/24 1531 Nano Maher SERVIN/L Progressing Problem: Other (Customize) Dates: Start: 01/19/24 Disciplines: OT Goal: Improve Dates: Start: 01/19/24 Expected End: 02/09/24 Description: Goal Description: Complete ADLs [place] with AE/DME Disciplines: OT Outcomes Date/Time User Outcome 01/20/24 09CHARU ReidA/Lanie Progressing Problem: Sitting Balance Dates: Start: 01/19/24 [...] 01/19/24 1531 Nano Maher SERVIN/Lanie Progressing Problem: Strength Dates: Start: 01/19/24 Disciplines: OT Goal: Improve strength Dates: Start: 01/19/24 Expected End: 02/09/24 Description: Of extremity/ location: Tolerate bilat UE exercises to increase strength and endurancefor self care tasks. To facilitate: Disciplines: OT Outcomes Date/Time User Outcome 01/19/24 1531 CHARU HernandezA/Lanie Progressing Problem: Transfers Dates: Start: 01/19/24 Disciplines: OT Goal: Patient will perform transfers with Modified [place] Dates: Start: 01/19/24 Expected End: 02/09/24 Description: Goal Description: Disciplines: OT Outcomes Date/Time User Outcome 01/20/24 0945 MALATHI Meneses/Lanie Progressing 01/19/24 1531 MALATHI Hernandez/Lanie Progressing Occupational Therapy Care Plan (Resolved) There are no resolved problems. Principal Problem: Closed fracture of right hip, initial encounter ([facility]) Active Problems: Closed displaced intertrochanteric fracture of right femur ([facility] [place] Associated attestation - Virgil Nunes OTR/Lanie - 01/20/2024 1:17 PM EDT I have reviewed and agree with this note and education documentation for this visit. * PT/OT/MARKETING INFORMATION ANALYST - Shahrzad Garcias PTA - 01/20/2024 8:17 [...] 6 Clicks: Basic Mobility Raw Score: 11 [facility] G Code Modifier: CL Therapy Plan PT [...] see per RN Equipment: gait belt, RW, plaacios Weight Bearing Status: WBAT Rt LE Oxygen [...] EOB. Use of gait belt as limb rough carpenter for RLE with fair- poor carryover. Pt displayed decreased ability to scoot hips to EOB d/t pain in R hip and required assistance from song writer to complete. Pt denied dizziness with [...] handles to complete. First attempt was unsuccessful. Door Trimmer educated pt on use of momentum and [...] Outcomes Date/Time User Outcome 01/20/24 1036 Shahrzad Gacrias PTA Progressing 01/19/24 1721 Shahrzad Garcias PTA [...] 1036 Shahrzad Garcias PTA Progressing 01/19/24 1721 Shahzrad Garcias PTA Progressing Goal Note filed on 01/20/24 1036 by Shahrzad Garcias PTA Evaluation of progress towards goal: Physical Therapy Care Plan (Resolved) There are no resolved problems. Principal Problem: Closed fracture of right hip, initial encounter ([facility]) Active Problems: Closed displaced intertrochanteric fracture of right femur ([facility] [place]) Associated attestation - Brady Jauregui PT - 01/20/2024 3:30 PM EDT I have reviewed and agree with this note and education documentation for this visit. * Discharge Planning Note - Jackie Caal - 01/19/2024 3:48 PM EDT DISCHARGE PLANNING NOTE Referral to [address]- [place] (P# ; F# ); [place] (P#[phone] ; F# [phone]) and [facility] ([place]- P# ; F# ) ([place], [place] P# ; F#) * PT/OT/MARKETING INFORMATION ANALYST - NALLELY Hernandez - 01/19/2024 3:32 PM [...] OT Outcomes Date/Time User Outcome 01/19/24 153Yohana MALATHI Hernandez/Lanie Progressing Problem: Bed Mobility Dates: Start: 01/19/24 Disciplines: OT Goal: Patient will perform bed mobility with Modified [place] Dates: Start: 01/19/24 Expected End: 02/09/24 Description: Goal Description: Disciplines: OT Outcomes Date/Time User Outcome 01/19/24 153Yohana MALATHI Hernandez/Lanie Progressing Problem: Functional Mobility Dates: Start: 01/19/24 Disciplines: OT Goal: Patient will perform functional mobility with Modified [place] Dates: Start: 01/19/24 Expected End: 02/09/24 Description: Goal Description: Disciplines: OT Outcomes Date/Time User Outcome 01/19/24 153Yohana MALATHI Hernandez/Lanie Progressing Problem: Other (Customize) Dates: Start: 01/19/24 Disciplines: OT Goal: Improve Dates: Start: 01/19/24 Expected End: 02/09/24 Description: Goal Description: Complete ADLs [place] with AE/DME Disciplines: OT Problem: Sitting Balance Dates: Start: 01/19/24 Disciplines: OT Goal: Improve balance to good Dates: Start: 01/19/24 Expected End: 02/09/24 Description: Static Dynamic Disciplines: OT Outcomes Date/Time User Outcome 01/19/24 1531 NALLELY Hernandez Progressing Problem: Standing Balance Dates: Start: 01/19/24 Disciplines: OT Goal: Improve balance to good Dates: Start: 01/19/24 Expected End: 02/09/24 Description: Static Dynamic Disciplines: OT Outcomes Date/Time User Outcome 01/19/24 1531 Nano Maher NALLELY Progressing Problem: Strength Dates: Start: 01/19/24 Disciplines: OT Goal: Improve strength Dates: Start: 01/19/24 Expected End: 02/09/24 Description: Of extremity/ location: Tolerate bilat UE exercises to increase strength and endurancefor self care tasks. To facilitate: Disciplines: OT Outcomes Date/Time User Outcome 01/19/24 1531 Nano MALATHI MaherLaurent Progressing Problem: Transfers Dates: Start: 01/19/24 Disciplines: OT Goal: Patient will perform transfers with Modified Shoshone Dates: Start: 01/19/24 Expected End: 02/09/24 Description: Goal Description: Disciplines: OT Outcomes Date/Time User Outcome 01/19/24 Shahnaz Mcgill GunnarMALATHI/Lanie Progressing Occupational Therapy Care Plan (Resolved) There are no resolved problems. Principal Problem: Closed fracture of right hip, initial encounter ([facility]) Active Problems: Closed displaced intertrochanteric fracture of right femur ([facility]) Associated attestation - Virgil Nunes OTR/L - [...] home care arranged. Referral's were placed to [address] (1st choice) & [facility], await acceptance. - JEWEL Crenshaw 01/19/24 3:08 PM * PT/OT/MARKETING INFORMATION ANALYST - Shahrzad Garcias PTA - 01/19/2024 1:55 [...] transition. Pt had difficutly following direction/cueing from song writer. Visual demo and tactile cueing provided [...] Closed fracture of right hip, initial encounter ([facility]) Active Problems: Closed displaced intertrochanteric fracture of right femur ([facility]) Associated attestation - Brady Jauregui, NICOLE - 01/20/2024 3:30 PM EDT I have reviewed and agree with this note and education documentation for this visit. * PT/OT/MARKETING INFORMATION ANALYST - Lindsay Infante, PT - 01/19/2024 1:52 PM EDT Physical Therapy Evaluation Discharge Recommendations PT Recommendations: Inpatient Rehab Inpatient Rehab Criteria: All inpatient rehab criteria expected to be met Therapy Plan Need for skilled Physical Therapy to address deficits in functional mobility due to a status decline resulting from hospitalization. Pt to [facility] via EMS with Rt LE pain. [...] from lisinopril Chronic pain disorder Colon cancer ([facility]) COPD (chronic obstructive pulmonary disease) ([facility]) Depression Diabetes mellitus type 2, controlled ([facility]) Fibromyalgia, primary Fracture of right hip, closed, initial encounter ([facility]) 01/17/2024 GERD (gastroesophageal reflux disease) Hyperlipidemia Hypertension Insulin-treated type 2 diabetes mellitus ([facility]) Joint pain Kidney stones Liver disease Low back pain Neck pain Obesity Osteoarthritis Visual impairment Past Surgical History: Procedure Laterality Date BACK SURGERY COLON SURGERY resection, 2018, [facility] DAVINCI REPAIR HERNIA VENTRAL N/A 10/27/2021 Performed by Ridge Cedillo MD at [facility] DENTAL SURGERY pt had all teeth removed HERNIA REPAIR x's 2 INSERTION INTRAMEDULLARY NAIL FEMUR-TFNA HIP FX Right 01/18/2024 Performed by Ang Figueroa MD at [facility] ORTHOPEDIC SURGERY 2008 foot, infected foot 6 [...] 6 Clicks: Basic Mobility Raw Score: 11 [facility] G Code Modifier: CL Recommended Consults: PM&R [...] Closed fracture of right hip, initial encounter ([facility]) Active Problems: Closed displaced intertrochanteric fracture of right femur ([facility]) * PT/OT/MARKETING INFORMATION ANALYST - Nohemy Guille, OTR/L - 01/19/2024 1:03 PM EDT Occupational Therapy [...] status decline resulting from hospitalization. Pt to [facility] via EMS with Rt LE pain. [...] from lisinopril Chronic pain disorder Colon cancer ([facility]) COPD (chronic obstructive pulmonary disease) ([facility]) Depression Diabetes mellitus type 2, controlled ([facility]) Fibromyalgia, primary Fracture of right hip, closed, initial encounter ([facility]) 01/17/2024 GERD (gastroesophageal reflux disease) Hyperlipidemia Hypertension Insulin-treated type 2 diabetes mellitus ([facility]) Joint pain Kidney stones Liver disease Low back pain Neck pain Obesity Osteoarthritis Visual impairment Past Surgical History: Procedure Laterality Date BACK SURGERY COLON SURGERY resection, 2018, [facility] DAVINCI REPAIR HERNIA VENTRAL N/A 10/27/2021 Performed by Ridge Cedillo MD at [facility] D[facility] SURGERY pt had all teeth removed HERNIA REPAIR x's 2 INSERTION INTRAMEDULLARY NAIL FEMUR-TFNA HIP FX Right 01/18/2024 Performed by Ang Figueroa MD at [facility] ORTHOP[facility]IC SURGERY 2007 foot, infected foot Chief [...] shower chair) Other : No AE/DME needs 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 shoulder and elbow 4-/5. Instant Powder Supervisor 3+/5) Activity Tolerance Endurance: Tolerates >30 minutes [...] Patient will perform bed mobility with Modified [place] Dates: Start: 01/19/24 Expected End: 02/09/24 Description: Goal Description: Disciplines: OT Problem: Functional Mobility Dates: Start: 01/19/24 Disciplines: OT Goal: Patient will perform functional mobility with Modified [place] Dates: Start: 01/19/24 Expected End: 02/09/24 Description: [...] Goal: Patient will perform transfers with Modified [place] Dates: Start: 01/19/24 Expected End: 02/09/24 Description: Goal Description: Disciplines: OT Occupational Therapy Care Plan (Resolved) There are no resolved problems. Principal Problem: Closed fracture of right hip, initial encounter ([facility]) Active Problems: Closed displaced intertrochanteric fracture of right femur ([facility]) * Plan of Care - Lian Silva RN - 01/19/2024 12:34 PM EDT Problem: Pain Goal: Patient goal is pain score less than 4, able to rest, and participant in treatment plan as appropriate Description: INTERVENTIONS: 1. Encourage patient or legal provider relations representative to report early pain and ask [...] per policy 9. Teach patient or legal provider relations representative interventions for comforting Outcome: Progressing Note: [...] at the bedside 7. Instruct patient/ patient provider relations representative about use of safety devices 8. Include patient/ patient provider relations representative in decisions related to safety Outcome: [...] Score of =/> 25 or indicated by [facility] Assessment Goal: Patient should be free from fall Description: Interventions: 1. Amidon to environment 2. Hourly rounds addressing the [...] non-skid footwear 11. Teach patient and patient provider relations representative to maintain environment for safety and [...] (cane, walker) within reach 19. Request patient provider relations representative bring adaptive equipment/mobility aids from home or obtain and provide as needed 20. Consult pharmacy regarding effects of med's affecting mobility, cognition, and alternatives 21. Obtain physician order for PT if risk factors associated with mobility are present 22. Obtain physician order for OT as appropriate 23. Utilize diversional activities 24. Educate patient and patient provider relations representative how to maintain a safe environment during visitationtimes (notify nurse prior to leaving bedside) 25. Consider appropriateness of medical or non-biomedical engineering technician 26. Set up voiding schedule as appropriate [...] hygiene technique 7. Identify and instruct patient/patient provider relations representative in use of appropriate isolation precautionsfor identified infection/symptoms 8. Provide and discuss with patient/patient provider relations representative on educational MDRO sheet 9. Encourage and monitor nutritional status daily and consult validation manager if indicated 10. Implement neutropenic guidelines as [...] Score of =/> 25 or indicated by [facility] Assessment Goal: Patient should be free from fall Description: Interventions: 1. Amidon to environment 2. Hourly rounds addressing the [...] non-skid footwear 11. Teach patient and patient provider relations representative to maintain environment for safety and [...] (cane, walker) within reach 19. Request patient provider relations representative bring adaptive equipment/mobility aids from home or obtain and provide as needed 20. Consult pharmacy regarding effects of med's affecting mobility, cognition, and alternatives 21. Obtain physician order for PT if risk factors associated with mobility are present 22. Obtain physician order for OT as appropriate 23. Utilize diversional activities 24. Educate patient and patient provider relations representative how to maintain a safe environment during visitationtimes (notify nurse prior to leaving bedside) 25. Consider appropriateness of medical or non-biomedical engineering technician 26. Set up voiding schedule as appropriate [...] 1. IM nail right intertrochanteric hip fracture.- 10720 SURGEON: Ang Figueroa MD CONDUCTOR PULLMAN: none ANESTHESIA: General. MEDICATIONS: ancef IV preop. [...] oriented during assessment. Pt was transferred to [facility] from [facility] where pt presented with leg and [...] live alone, may need SNF vs IPR. GABRIEL did discuss possible SNF placement with pt and provided SNF list to pt. Will need transport at dc even if goes home. SW will continue to follow for dc needs. Services Requested: Services Requested Discharge Disposition: (TBD) Does the patient need discharge transportation arranged?: Yes Patient choice offered: Yes List Provided: Yes [facility]Port List Provided: [facility] Initial DC Assessment Completed: Yes Patient [...] Description: INTERVENTIONS: 1. Encourage patient or legal provider relations representative to report early pain and ask [...] per policy 9. Teach patient or legal provider relations representative interventions for comforting Outcome: Progressing Note: [...] at the bedside 7. Instruct patient/ patient provider relations representative about use of safety devices 8. Include patient/ patient provider relations representative in decisions related to safety Outcome: [...] hygiene technique 7. Identify and instruct patient/patient provider relations representative in use of appropriate isolation precautionsfor identified infection/symptoms 8. Provide and discuss with patient/patient provider relations representative on educational MDRO sheet 9. Encourage and monitor nutritional status daily and consult validation manager if indicated 10. Implement neutropenic guidelines as needed 11. Review exposure to history of communicable disease and recent travel history on admission 12. Encourage annual influenza vaccine 13. Encourage pneumonia vaccine Outcome: Progressing Note: Evaluation of progress towards goal: Skin integrity remains in stable condition; remains w/o ss of infection, fever, pain, or increased discomfort. Problem: Knowledge Deficit Goal: Patient/patient provider relations representative demonstrates understanding of disease process, treatment [...] discharge planning process 5. Communicate referral to natural resources extension educator as appropriate 6. Communicate referral to validation manager as appropriate 7. Collaborate with case management/social contact worker for discharge needs Outcome: Progressing Note: Evaluation of progress towards goal: Discharge planning in process; will continue to monitor for discharge needs. Problem: Moderate - High Risk Fall Score Description: Arredondo Fall Score of =/> 25 or indicated by [facility] Assessment Goal: Patient should be free from fall Description: Interventions: 1. Amidon to environment 2. Hourly rounds addressing the [...] non-skid footwear 11. Teach patient and patient provider relations representative to maintain environment for safety and [...] (cane, walker) within reach 19. Request patient provider relations representative bring adaptive equipment/mobility aids from home or obtain and provide as needed 20. Consult pharmacy regarding effects of med's affecting mobility, cognition, and alternatives 21. Obtain physician order for PT if risk factors associated with mobility are present 22. Obtain physician order for OT as appropriate 23. Utilize diversional activities 24. Educate patient and patient provider relations representative how to maintain a safe environment during visitationtimes (notify nurse prior to leaving bedside) 25. Consider appropriateness of medical or non-biomedical engineering technician 26. Set up voiding schedule as appropriate (every 2 hours) Outcome: Progressing Note: Evaluation of progress towards goal: Call light within reach. Remains free of fall or injury.Environment free of clutter. * PT/OT/MARKETING INFORMATION ANALYST - WILLARD Chavira/Lanie - 01/18/2024 7:39 AM EDT Occupational Therapy CANCEL - Deferred Orders received for OT evaluation. Pt scheduled for hip fracture repair this date. Will check back post op * Plan of Care - Carin Contreras RN - 01/18/2024 5:30 AM EDT Problem: Moderate - High Risk Fall Score Description: Arredondo Fall Score of =/> 25 or indicated by [facility] Assessment Goal: Patient should be free from fall Description: Interventions: 1. Amidon to environment 2. Hourly rounds addressing the [...] non-skid footwear 11. Teach patient and patient provider relations representative to maintain environment for safety and [...] (cane, walker) within reach 19. Request patient provider relations representative bring adaptive equipment/mobility aids from home or obtain and provide as needed 20. Consult pharmacy regarding effects of med's affecting mobility, cognition, and alternatives 21. Obtain physician order for PT if risk factors associated with mobility are present 22. Obtain physician order for OT as appropriate 23. Utilize diversional activities 24. Educate patient and patient provider relations representative how to maintain a safe environment during visitationtimes (notify nurse prior to leaving bedside) 25. Consider appropriateness of medical or non-biomedical engineering technician 26. Set up voiding schedule as appropriate (every 2 hours) Outcome: Progressing Note: Evaluation of progress towards goal: Patient remains fall free at this time. Fall precautionsin place. * Situational Awareness - Jeff Martin MD - 01/17/2024 10:57 AM EDT ED called Report to [facility] for Admission Pt transferred to for Ortho, morbid obesity, fall with hip fracture requiring OR, plan for tomorrow. Background HLD, IDDM2. No h/o CAD. Reported no other hemodynamic or acute medical concerns at this time. JEFF MARTIN MD [facility] Progress note* Discharge Planning Note - Mendoza Pritchett - 01/22/2024 4:03 PM EDT DISCHARGE PLANNING NOTE CRF sent to [facility] Progress note* Discharge Planning Note - JEWEL Crenshaw - 01/22/2024 3:40 PM EDT Images from the original note were not included. DISCHARGE PLANNING NOTE DC plan will be IPR: [facility] rehab has accepted pt. Pt is agreeable to [facility]. No auth needed. Pt will discharge today. Transport arranged for 5pm. Patient, RN, facility all aware. CRF sent. W/C tx cert in dc packet Services Requested: Services Requested Discharge Disposition: Acute rehab Acute Rehab Name: [facility] re[facility] Acute Rehab Does the patient need discharge transportation arranged?: Yes Patient choice offered: Yes List Provided: Yes [facility]Port List Provided: [facility] Initial DC Assessment Completed: Yes Patient Goals: Goals: Goals (pt-stated) Evaluation of progress towards goal: possible rehab placement vs home pending progress, recommendations and pt decision - JEWEL Crenshaw 01/22/24 3:44 PM [facility]06-10[facility] Hospital course Narrative* Abad Diallo, DO - 01/22/2024 3:21 PM EDT Images from the original note were not included. DISCHARGE NOTE Demographics: Patient Name: Ruth Smith : 1970 DATE OF ADMISSION: 01/17/2024 DATE OF DISCHARGE: 01/22/2024 DISCHARGE DIAGNOSES: Principal Problem: Closed fracture of right hip, initial encounter ([facility]) Active Problems: Closed displaced intertrochanteric fracture of right femur ([facility]) CONSULTANTS: Consulting Providers Provider Service Specialty MD [...] fall and right hip pain initially to [facility] and transferred to [facility]. Patient awake oriented x3 does not be [...] Pending Labs: DISCHARGE INSTRUCTIONS: Disposition: [facility] Condition:Stable Activity: activity as tolerated Diet: Adult nutrition supplements Adult diet Regular Texture; Consistent Carb 210 grams (1800 kcal) Follow up: Jd Du PA-C [address] [id number] For most accurate medication list, please review [...] Your Medications [id number] [id number] calcium citrate 200 mg (950 mg) tablet cholecalciferol (vitamin D3) 2,000 units tablet ergocalciferol 1,250 mcg (50,000 unit) capsule sennosides-docusate sodium 8.6-50 mg Information about where to get these medications is not yet available Ask your nurse or doctor about these medications enoxaparin 40 mg/0.4 mL syringe 45 minutes were spent on discharging this patient. 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 Race: White or [1] Emergency contact: Extended Emergency Contact Information Primary Emergency Contact: Yvonne Martinez Mobile Relation: Mother Preferred language: Cook Islander Director Digital Catalogue needed? No Marital status: Single [1] Rehab [...] Comorbidities/Medical issues requiring further interdisciplinary management at [facility]: Right Hip Fracture s/p IMN 01/17 -WBAT [...] Closed displaced intertrochanteric fracture of right femur ([facility]) Closed fracture of right hip, initial encounter ([facility]) Past Medical History: Diagnosis Date Asthma Back pain Chronic cough from lisinopril Chronic pain disorder Colon cancer ([facility]) COPD (chronic obstructive pulmonary disease) ([facility]) Depression Diabetes mellitus type 2, controlled ([facility]) Fibromyalgia, primary Fracture of right hip, closed, initial encounter ([facility]) 01/17/2024 GERD (gastroesophageal reflux disease) Hyperlipidemia Hypertension Insulin-treated type 2 diabetes mellitus ([facility]) Joint pain Kidney stones Liver disease Low back pain Neck pain Obesity Osteoarthritis Visual impairment Past Surgical History: Procedure Laterality Date BACK SURGERY COLON SURGERY resection, 2018, [facility] DAVINCI REPAIR HERNIA VENTRAL N/A 10/27/2021 Performed by Ridge Cedillo MD at [facility]ERY pt had all teeth removed HERNIA REPAIR x's 2 INSERTION INTRAMEDULLARY NAIL FEMUR-TFNA HIP FX Right 01/18/2024 Performed by Ang Figueroa MD at [facility] ORTHOP[facility]IC SURGERY 2007 foot, infected foot Ongoing [...] tablet 2,000 Units 2,000 Units oral Daily iVlma Beckwith PA-C 2,000 Units at 01/22/24 0836 [...] 100 mg 100 mg oral Daily Abad Diallo DO 100 mg at 01/22/24 0836 magnesium [...] tablet 550 mg 550 mg oral Q12H [facility] Abad Diallo, DO 550 mg at 01/22/24 0836 sennosides-docusate sodium (SENOKOT-S) 8.6-50 mg 2 tablet 2 tablet oral BID Stephen Hannah MD 2tablet at 01/20/24 0905 tamsulosin (FLOMAX) 24 hr capsule 0.4 mg 0.4 mg oral Nightly Stephen Hannah MD 0.4 mg at 01/21/242107 O2 Level SpO2: 94 % (01/22/24 0714) O2 Device: None (Room air) (01/22/24 1313) O2 Flow Rate (L/min): 0 L/min (01/22/24 1313) Pain Assessment: 0-10 (01/22/24 1134) Pain Score: 10 (01/22/24 113) Pain Type: Surgical pain (01/22/24 1134) Pain Location: Hip, Back, Leg (01/22/24 1134) Pain Orientation: Right, Lower (01/22/24 113) Pain Radiating Towards: Leg and lower back (01/22/24 113) Pain Descriptors: Sharp (01/22/24 1134) Pain Frequency: Constant/continuous (01/22/24 113) Pain Onset: Ongoing (01/22/24 113) Clinical Progression: Gradually worsening (01/22/24 113) Effect of Pain on Daily Activities: comfort (01/21/24 0514) Patient's Stated Pain Goal: No pain (01/21/24 2220) Pain Intervention(s): Medication (See MAR) (01/22/24 113) Response to Interventions: Pain unchanged, Quiet (01/22/24 0922) Wound Assessment: Skin: Skin Color: [place], Pale (01/22/24 1132) Skin Temp: Cool, Dry (01/22/24 0400) Skin Integrity: Bruising (01/22/24 1132) risk: turn and position every 2 hours, lotion to bk prominences, moisture barrier, and pressure relief every 20 minutes while up in chair Dialysis? No Language/Cognition: [place] Islander [22] Hearing / Speech / Vision Hearing: [...] Precautions: Fall (01/22/24 1023) Cultural considerations: N/A Director Digital Catalogue needed? No [2] BP 134/90 Pulse 90 [...] 118.5 kg (261 lb 3.9 oz) (01/21/24 2328) Diet: Dietary Orders (From admission, onward) [...] Large (01/21/24 1615) Last BM Date: 01/22/24 (01/22/24 1132) Level of function prior to event/condition leading [...] and was able to exchange L sock. Door Trimmer assisted with R foot. Pt then donned [...] chair) (01/19/24923) Other : No AE/DME needs PROPERTY MANAGEMENT ASSISTANT (01/19/24922) Lives with: Lives With: Alone (01/19/24923) Additional support system: Receives Help From: (pt states his neighbor could assist some) ([id number]) Therapy Plan: The patient requires the active [...] from the original note were not included. 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 Although every effort was made to ensure the accuracy of this automated manager emergency department, some errors in manager emergency department may have occurred. This should not affect the overall integrity of the document. * Anne Ventura MD - 01/21/2024 9:34 AM EDT Physical Medicine and Rehabilitation Daily Progress Note Today's Date and Time: 01/21/2024, 9:34 AM Subjective/Chief complaint: Closed fracture of right hip, initial encounter ([facility]) Principal Problem: Closed fracture of right hip, initial encounter ([facility]) Active Problems: Closed displaced intertrochanteric fracture of right femur ([facility]) SUBJECTIVE Resting in bed, denies [...] No results found for: ALB , PROT @LABRCNT([facility]:3)@ Lab Results Component Value Date CRP 1.1 [...] Closed displaced intertrochanteric fracture of right femur ([facility]) Closed fracture of right hip, initial encounter ([facility]) Recommendations/Plan: Continue PT, OT Min assist x2 [...] from the original note were not included. [facility] 01/20/2024 Patient [...] Lovenox-discussed with ortho Continue with vitamin-D supplementation, 39520 units weekly x4 weeks Continue sliding scale [...] DIALLO DO 01/20/24 11:05 AM [facility], [facility] Please note that portions of this note were generated using voice recognition [employer] dictation software. Although every effort was made to ensure the accuracy of this automated manager emergency department, some errors in manager emergency department may have occurred. This should not affect [...] from the original note were not included. [facility] 01/19/2024 Patient [...] Lovenox-discussed with ortho Continue with vitamin-D supplementation, 29811 units weekly x4 weeks Continue sliding scale insulin/Accuchecks Continue other home medications the diet following reconciliation Social work for discharge planning DVT prophylaxis: SQ Lovenox Code status: Full code Discharge planning: Status post surgery on 01/18/2024. Await PT/OT Electronically signed by: ABAD DIALLO DO 01/19/24 10:[address] [facility] Please note that portions of this note were generated using voice recognition [employer] dictation software. Although every effort was made to ensure the accuracy of this automated manager emergency department, some errors in manager emergency department may have occurred. This should not affect [...] BANUELOS PA-C 01/19/24 1028 * Mara Padilla RPH - 01/18/2024 4:43 PM EDT [facility] Department of Pharmacy Pharmacist to Physician Communication The dose of cefazolin for surgical prophylaxis has been changed to 2 grams every 8 hours for 2 doses per the [place] approved renal dosing guidelines, based on an estimated creatinine clearance is 134.8 mL/min (by C-G formula based on SCr of 0.7 mg/dL). Actual body weight <120kg. Thank you, Mara Padilla [facility], PharmD Ext [phone] * Abad Diallo DO - 01/18/2024 10:50 AM EDT Images from the original note were not included. [facility] Hospitalists Progress Note 01/18/2024 Patient Name: [...] once okay with ortho Start vitamin-D supplementation, 64236 units weekly x4 weeks Continue sliding scale insulin/Accuchecks Continue other home medications the diet following reconciliation DVT prophylaxis: SCDs. Start chemical DVT PPX once okay with ortho Code status: Full code Discharge planning: Pending clinical course. Surgery planned for today. Will need PT/OT evaluation thereafter Electronically signed by: ABAD DIALLO DO 01/18/24 10:50 AM [facility], [facility] Medicine Please note that portions of this note were generated using voice recognition [email or web address] dictation software. Although every effort was made to ensure the accuracy of this automated manager emergency department, some errors in manager emergency department may have occurred. This should not affect the overall integrity of the document. documented in this encounterUniversity Hospitals Lake West Medical CenterRight On Interactive Forest View [id number] Progress note* Discharge Planning Note - Mendoza Pritchett - 01/22/2024 2:06 PM EDT DISCHARGE PLANNING NOTE Referral sent to [facility] a division of [facility] P# [phone] [calling report];/[facility] (P# [calling report]; F# ) eblizz [id number] Progress note* Discharge Planning Note - JEWEL Crenshaw - 01/22/2024 2:01 PM EDT DISCHARGE PLANNING NOTE [facility]. GABRIEL discussed with pt and reviewed other IPR options. Pt is agreeable to [facility]. Referral sent, await acceptance. - JEWEL Crenshaw 01/22/24 2:01 PM [facility]06-10-2024 Plan of care note* Plan of Care - Miranda Dudley RN - 01/22/2024 12:56 PM EDT Problem: Pain Goal: Patient goal is pain score less than 4, able to rest, and participant in treatment plan as appropriate Description: INTERVENTIONS: 1. Encourage patient or legal provider relations representative to report early pain and ask [...] per policy 9. Teach patient or legal provider relations representative interventions for comforting Outcome: Adequate for [...] at the bedside 7. Instruct patient/ patient provider relations representative about use of safety devices 8. Include patient/ patient provider relations representative in decisions related to safety Outcome: [...] hygiene technique 7. Identify and instruct patient/patient provider relations representative in use of appropriate isolation precautionsfor identified infection/symptoms 8. Provide and discuss with patient/patient provider relations representative on educational MDRO sheet 9. Encourage and monitor nutritional status daily and consult validation manager if indicated 10. Implement neutropenic guidelines as [...] any changes. Problem: Knowledge Deficit Goal: Patient/patient provider relations representative demonstrates understanding of disease process, treatment [...] Score of =/> 25 or indicated by [facility] Assessment Goal: Patient should be free from fall Description: Interventions: 1. [place] to environment 2. Hourly rounds addressing the [...] non-skid footwear 11. Teach patient and patient provider relations representative to maintain environment for safety and [...] (cane, walker) within reach 19. Request patient provider relations representative bring adaptive equipment/mobility aids from home or obtain and provide as needed 20. Consult pharmacy regarding effects of med's affecting mobility, cognition, and alternatives 21. Obtain physician order for PT if risk factors associated with mobility are present 22. Obtain physician order for OT as appropriate 23. Utilize diversional activities 24. Educate patient and patient provider relations representative how to maintain a safe environment during visitationtimes (notify nurse prior to leaving bedside) 25. Consider appropriateness of medical or non-biomedical engineering technician 26. Set up voiding schedule as appropriate [...] Will continue to monitor during shift. ;; eblizz [id number] Progress note* Discharge Planning Note - JEWEL [...] pt and pt would like to try [facility] IP rehab. Referral sent. Awaiting acceptance. W/C tx cert in dc packet. - JEWEL Crenshaw 01/22/24 11:19 AM [facility]06-10-2024 Progress note* Discharge Planning Note - Jackie Caal - 01/22/2024 11:13 AM EDT DISCHARGE PLANNING NOTE [facility] [place] (P# ; F# ) [facility]06-10-2024 Progress note* PT/OT/MARKETING INFORMATION ANALYST - ALICIA Banda - 01/22/2024 8:31 AM [...] belt, RW Weight Bearing Status: WBAT RLE Telemetry/Surgical Endoscopist: No Oxygen Used: room air Other: fall [...] and was able to exchange L sock. Door Trimmer assisted with R foot. Pt then donned [...] and was able to exchange L sock. Door Trimmer assisted with R foot. Pt then donned [...] Ludy Vogt SERVIN/L Progressing 01/21/24 1053 Ludy Vogt SERVIN/L Progressing 01/20/24 1610 Katlin Goins SERVIN/L Progressing 01/20/24 0945 Katlin Goins SERVIN/L Progressing 01/19/24 1531 Nano Maher SERVIN/L Progressing Goal Note filed on 01/22/24 1054 by Ludy Ireland OTR/Lanie Evaluation of progress towards goal: Problem: Bed Mobility Dates: Start: 01/19/24 Disciplines: OT Goal: Patient will perform bed mobility with Modified Shoshone Dates: Start: 01/19/24 Expected End: 02/09/24 Description: [...] Patient will perform functional mobility with Modified Shoshone Dates: Start: 01/19/24 Expected End: 02/09/24 Description: [...] Goal: Patient will perform transfers with Modified Shoshone Dates: Start: 01/19/24 Expected End: 02/09/24 Description: Goal Description: Disciplines: OT Outcomes Date/Time User Outcome 01/22/24 1054 WILLARD Banda/Lanie Progressing 01/21/24 1650 Ludy Vogt, SERVIN/L Progressing 01/21/24 1053 Ludy Vogt, SERVIN/L Not Progressing 01/20/24 1610 Katlin Goins SERVIN/L Progressing 01/20/24 0945 Katlin Goins, SERVIN/L Progressing 01/19/24 1531 Nano Maher SERVIN/L Progressing Goal Note filed on 01/22/24 1054 by WILLARD Banda/Lanie Evaluation of progress towards goal: Occupational Therapy Care Plan (Resolved) There are no resolved problems. Principal Problem: Closed fracture of right hip, initial encounter ([facility]) Active Problems: Closed displaced intertrochanteric fracture of right femur ([facility]) [facility]06-10-2024 Progress note* PT/OT/MARKETING INFORMATION ANALYST - Shahrzad Garcias PTA - 01/22/2024 8:30 [...] RW Weight Bearing Status: WBAT R LE Telemetry/Surgical Endoscopist: No Oxygen Used: room air Other: fall [...] complete. Pt used gait belt as leg rough carpenter to assist RLE OOB. Pt tends to hold his breath with transitions and displays difficulty foloring direction for breathing technique from song writer. Pt reporting dizziness intially upon sitting [...] Date/Time User Outcome 01/22/24 1051 Shahrzad Garcias, PROPERTY MANAGEMENT ASSISTANT Progressing 01/21/24 1741 Shahrzad Garcias, PROPERTY MANAGEMENT ASSISTANT Progressing 01/21/24 1309 Shahrzad Garcias, PROPERTY MANAGEMENT ASSISTANT Progressing 01/20/24 1607 Shahrzad Garcias, PROPERTY MANAGEMENT ASSISTANT Progressing 01/20/24 1036 Shahrzad Garcias, PROPERTY MANAGEMENT ASSISTANT Progressing 01/19/24 1721 Shahrzad Garcias, PROPERTY MANAGEMENT ASSISTANT Progressing Goal Note filed on 01/22/24 1051 by Shahrzad Garcias PTA Evaluation of progress towards goal: Problem: Bed Mobility Dates: Start: 01/19/24 Disciplines: PT Goal: Patient will perform bed mobility with Minimum Assist Dates: Start: 01/19/24 Expected End: 02/02/24 Description: Goal Description: Disciplines: PT Outcomes Date/Time User Outcome 01/22/24 1051 Shahrzad Garcias, PROPERTY MANAGEMENT ASSISTANT Progressing 01/21/24 1741 Shahrzad Garcias, PROPERTY MANAGEMENT ASSISTANT Progressing 01/21/24 1309 Shahrzad Garcias, PROPERTY MANAGEMENT ASSISTANT Progressing 01/20/24 1607 Shahrzad Garcias, PROPERTY MANAGEMENT ASSISTANT Progressing 01/20/24 1036 Shahrzad Garcias, PROPERTY MANAGEMENT ASSISTANT Progressing 01/19/24 1721 Shahrzad Garcias PTA Progressing Goal Note filed on 01/22/24 1051 by Shahrzad Garcias PTA Evaluation of progress towards goal: Problem: Gait Dates: Start: 01/19/24 Disciplines: PT Goal: Patient will perform gait with Contact Guard Dates: Start: 01/19/24 Expected End: 02/02/24 Description: With_rw___,__150__feet Goal Description: Disciplines: PT Outcomes Date/Time User Outcome 01/22/24 1051 Shahrzad Garcias, PROPERTY MANAGEMENT ASSISTANT Progressing 01/21/24 1741 Shahrzad Garcias, PROPERTY MANAGEMENT ASSISTANT Progressing 01/21/24 1309 Shahrzad Garcias, PROPERTY MANAGEMENT ASSISTANT Progressing 01/20/24 1607 Shahrzad Garcias, PROPERTY MANAGEMENT ASSISTANT Progressing 01/20/24 1036 Shahrzad Garcias, PROPERTY MANAGEMENT ASSISTANT Progressing 01/19/24 1721 Shahrzad Garcias PTA Progressing Goal Note filed on 01/22/24 1051 by Shahrzad Lampkowski, PROPERTY MANAGEMENT ASSISTANT Evaluation of progress towards goal: Problem: Standing Balance Dates: Start: 01/19/24 Disciplines: PT Goal: Improve balance to good Dates: Start: 01/19/24 Expected End: 02/02/24 Description: Static Dynamic- good (-) with support of rw Disciplines: PT Outcomes Date/Time User Outcome 01/22/24 1051 Shahrzad Garcias, PROPERTY MANAGEMENT ASSISTANT Progressing 01/21/24 1741 Shahrzad Garcias, PROPERTY MANAGEMENT ASSISTANT Progressing 01/21/24 1309 Shahrzad Garcias, PROPERTY MANAGEMENT ASSISTANT Not Progressing 01/20/24 1036 Shahrzad Garcias, PROPERTY MANAGEMENT ASSISTANT Progressing 01/19/24 1721 Shahrzad Garcias, PROPERTY MANAGEMENT ASSISTANT Progressing Goal Note filed on 01/22/24 1051 by Shahrzad Garcias PTA Evaluation of progress towards goal: Problem: Strength Dates: Start: 01/19/24 Disciplines: PT Goal: Improve strength Dates: Start: 01/19/24 Expected End: 02/02/24 Description: Of extremity/ location:Complete 20 reps bilat UE/LE ex's To facilitate: Disciplines: PT Outcomes Date/Time User Outcome 01/22/24 1051 Shahrzad Garcias, PROPERTY MANAGEMENT ASSISTANT Progressing 01/21/24 1741 Shahrzad Garcias, PROPERTY MANAGEMENT ASSISTANT Progressing 01/21/24 1309 Shahrzad Garcias, PROPERTY MANAGEMENT ASSISTANT Progressing 01/20/24 1607 Shahrzad Garcias, PROPERTY MANAGEMENT ASSISTANT Progressing 01/20/24 1036 Shahrzad Garcias, PROPERTY MANAGEMENT ASSISTANT Progressing 01/19/24 1721 Shahrzad Garcias PROPERTY MANAGEMENT ASSISTANT Progressing Goal Note filed on 01/22/24 1051 by Shahrzad Garcias PTA Evaluation of progress towards goal: Problem: Transfers Dates: Start: 01/19/24 Disciplines: PT Goal: Patient will perform transfers with Contact Guard Dates: Start: 01/19/24 Expected End: 02/02/24 Description: Goal Description: Disciplines: PT Outcomes Date/Time User Outcome 01/22/24 1051 Shahrzad Garcias, PROPERTY MANAGEMENT ASSISTANT Progressing 01/21/24 1741 Shahrzad Garcias, PROPERTY MANAGEMENT ASSISTANT Progressing 01/21/24 1309 Shahrzad Garcias, PROPERTY MANAGEMENT ASSISTANT Not Progressing 01/20/24 1607 Shahrzad Garcias, PROPERTY MANAGEMENT ASSISTANT Progressing 01/20/24 1036 Shahrzad Garcias, PROPERTY MANAGEMENT ASSISTANT Progressing 01/19/24 1721 Shahrzad Garcias PTA Progressing Goal Note filed on 01/22/24 1051 by Shahrzad Garcias PTA Evaluation of progress towards goal: Physical Therapy Care Plan (Resolved) There are no resolved problems. Principal Problem: Closed fracture of right hip, initial encounter ([facility]) Active Problems: Closed displaced intertrochanteric fracture of right femur ([facility]) Associated attestation - Brady Jauregui PT - 01/22/2024 4:19 PM EDT I have reviewed and agree with this note and education documentation for this visit. [facility]06-09-2024 Plan of care note* Plan of Care - Santi Parks RN - 01/21/2024 9:31 PM EDT Problem: Pain Goal: Patient goal is pain score less than 4, able to rest, and participant in treatment plan as appropriate Description: INTERVENTIONS: 1. Encourage patient or legal provider relations representative to report early pain and ask [...] per policy 9. Teach patient or legal provider relations representative interventions for comforting Outcome: Progressing Note: [...] at the bedside 7. Instruct patient/ patient provider relations representative about use of safety devices 8. Include patient/ patient provider relations representative in decisions related to safety Outcome: [...] hygiene technique 7. Identify and instruct patient/patient provider relations representative in use of appropriate isolation precautionsfor identified infection/symptoms 8. Provide and discuss with patient/patient provider relations representative on educational MDRO sheet 9. Encourage and monitor nutritional status daily and consult validation manager if indicated 10. Implement neutropenic guidelines as needed 11. Review exposure to history of communicable disease and recent travel history on admission 12. Encourage annual influenza vaccine 13. Encourage pneumonia vaccine Outcome: Progressing Note: Evaluation of progress towards goal: Pt afebrile at this time, continue to monitor for signs infection Problem: Knowledge Deficit Goal: Patient/patient provider relations representative demonstrates understanding of disease process, treatment plan,medications, and discharge instructions Description: INTERVENTIONS 1. Complete learning assessment and assess knowledge base 2. Provide teaching at level of understanding 3. Provide teaching via preferred learning method(s) Outcome: Progressing Note: Evaluation of progress towards goal: POC discussed with patient. Questions answered PRN. [facility]06-09-2024 Progress note* PT/OT/MARKETING INFORMATION ANALYST - MALATHI Grey/Lanie - 01/21/2024 5:01 PM [...] RW Weight Bearing Status: WBAT Rt LE Telemetry/Surgical Endoscopist: No Oxygen Used: room air Other: fall [...] Katlin Goins SERVIN/L Progressing 01/19/24 1531 Nano Maher, SERVIN/L Progressing Problem: Bed Mobility Dates: Start: 01/19/24 Disciplines: OT Goal: Patient will perform bed mobility with Modified [place]oshone Dates: Start: 01/19/24 Expected End: 02/09/24 Description: Goal Description: Disciplines: OT Outcomes Date/Time User Outcome 01/21/24 1053 Ludy Vogt, SERVIN/L Progressing 01/20/24 1610 Katlin Goins, SERVIN/L Progressing 01/20/24 0945 Katlin Goins, SERVIN/L Progressing 01/19/24 1531 Nano Maher, SERVIN/L Progressing Problem: Functional Mobility Dates: Start: 01/19/24 Disciplines: OT Goal: Patient will perform functional mobility with Modified Shoshone Dates: Start: 01/19/24 Expected End: 02/09/24 Description: [...] Goal: Patient will perform transfers with Modified Shoshone Dates: Start: 01/19/24 Expected End: 02/09/24 Description: [...] Closed fracture of right hip, initial encounter ([facility]) Active Problems: Closed displaced intertrochanteric fracture of right femur ([facility]) Associated attestation - Ludy Ireland OTR/L - 01/22/2024 7:38 AM EDT I have reviewed and agree with this note and education documentation for this visit. [facility]06-09-2024 Plan of care note* Plan of Care - Chloe Vela RN - 01/21/2024 4:13 PM EDT Problem: Pain Goal: Patient goal is pain score less than 4, able to rest, and participant in treatment plan as appropriate Description: INTERVENTIONS: 1. Encourage patient or legal provider relations representative to report early pain and ask [...] per policy 9. Teach patient or legal provider relations representative interventions for comforting Outcome: Progressing Note: [...] at the bedside 7. Instruct patient/ patient provider relations representative about use of safety devices 8. Include patient/ patient provider relations representative in decisions related to safety Outcome: [...] hygiene technique 7. Identify and instruct patient/patient provider relations representative in use of appropriate isolation precautionsfor identified infection/symptoms 8. Provide and discuss with patient/patient provider relations representative on educational MDRO sheet 9. Encourage and monitor nutritional status daily and consult validation manager if indicated 10. Implement neutropenic guidelines as needed 11. Review exposure to history of communicable disease and recent travel history on admission 12. Encourage annual influenza vaccine 13. Encourage pneumonia vaccine Outcome: Progressing Problem: Knowledge Deficit Goal: Patient/patient provider relations representative demonstrates understanding of disease process, treatment [...] discharge planning process 5. Communicate referral to natural resources extension educator as appropriate 6. Communicate referral to validation manager as appropriate 7. Collaborate with case management/social contact worker for discharge needs Outcome: Progressing Problem: Moderate - High Risk Fall Score Description: Arredondo Fall Score of =/> 25 or indicated by [facility] Assessment Goal: Patient should be free from fall Description: Interventions: 1. [place]idon to environment 2. Hourly rounds addressing the [...] non-skid footwear 11. Teach patient and patient provider relations representative to maintain environment for safety and [...] (cane, walker) within reach 19. Request patient provider relations representative bring adaptive equipment/mobility aids from home or obtain and provide as needed 20. Consult pharmacy regarding effects of med's affecting mobility, cognition, and alternatives 21. Obtain physician order for PT if risk factors associated with mobility are present 22. Obtain physician order for OT as appropriate 23. Utilize diversional activities 24. Educate patient and patient provider relations representative how to maintain a safe environment during visitationtimes (notify nurse prior to leaving bedside) 25. Consider appropriateness of medical or non-biomedical engineering technician 26. Set up voiding schedule as appropriate (every 2 hours) Outcome: Progressing Note: Evaluation of progress towards goal: Fall precautions in place including bed locked and in lowest position, call light within reach and non skid socks on. Patient calls out appropriately for help. Hourly rounding in place. eblizz [id number] Progress note* PT/OT/MARKETING INFORMATION ANALYST - Shahrzad Garcias, PROPERTY MANAGEMENT ASSISTANT - 01/21/2024 3:32 PM EDT Physical Therapy [...] RW Weight Bearing Status: WBAT Rt LE Telemetry/Surgical Endoscopist: No Oxygen Used: room air Other: fall [...] Date/Time User Outcome 01/21/24 1741 Shahrzad Garcias, PROPERTY MANAGEMENT ASSISTANT Progressing 01/21/24 1309 Shahrzad Garcias, PROPERTY MANAGEMENT ASSISTANT Progressing 01/20/24 1607 Shahrzad Garcias, PROPERTY MANAGEMENT ASSISTANT Progressing 01/20/24 1036 Shahrzad Garcias, PROPERTY MANAGEMENT ASSISTANT Progressing 01/19/24 1721 Shahrzad Garcias, SHERYL Progressing Goal Note filed on 01/21/24 174 by Shahrzad Garcias PTA Evaluation of progress towards goal: Problem: Bed Mobility Dates: Start: 01/19/24 Disciplines: PT Goal: Patient will perform bed mobility with Minimum Assist Dates: Start: 01/19/24 Expected End: 02/02/24 Description: Goal Description: Disciplines: PT Outcomes Date/Time User Outcome 01/21/24 1741 Shahrzad Garcias, PROPERTY MANAGEMENT ASSISTANT Progressing 01/21/24 1309 Shahrzad Garcias, PROPERTY MANAGEMENT ASSISTANT Progressing 01/20/24 1607 Shahrzad Garcias, PROPERTY MANAGEMENT ASSISTANT Progressing 01/20/24 1036 Shahrzad Garcias, PROPERTY MANAGEMENT ASSISTANT Progressing 01/19/24 1721 Shahrzad Garcias PTA Progressing Goal Note filed on 01/21/24 174 by Shahrzad Garcias PTA Evaluation of progress towards goal: Problem: Gait Dates: Start: 01/19/24 Disciplines: PT Goal: Patient will perform gait with Contact Guard Dates: Start: 01/19/24 Expected End: 02/02/24 Description: With_rw___,__150__feet Goal Description: Disciplines: PT Outcomes Date/Time User Outcome 01/21/24 1741 Shahrzad Garcias, PROPERTY MANAGEMENT ASSISTANT Progressing 01/21/24 1309 Shahrzad Garcias, PROPERTY MANAGEMENT ASSISTANT Progressing 01/20/24 1607 Shahrzad Garcias, PROPERTY MANAGEMENT ASSISTANT Progressing 01/20/24 1036 Shahrzad Garcias, PROPERTY MANAGEMENT ASSISTANT Progressing 01/19/24 1721 Shahrzad Garcias, PROPERTY MANAGEMENT ASSISTANT Progressing Goal Note filed on 01/21/24 174 by Shahrzad Garcias PTA Evaluation of progress towards goal: Problem: Standing Balance Dates: Start: 01/19/24 Disciplines: PT Goal: Improve balance to good Dates: Start: 01/19/24 Expected End: 02/02/24 Description: Static Dynamic- good (-) with support of rw Disciplines: PT Outcomes Date/Time User Outcome 01/21/24 1741 Shahrzad Garcias, PROPERTY MANAGEMENT ASSISTANT Progressing 01/21/24 1309 Shahrzad Garcias, PROPERTY MANAGEMENT ASSISTANT Not Progressing 01/20/24 1036 Shahrzad Garcias, SHERYL [...] Garcias PTA Progressing 01/21/24 1309 Shahrzad Garcias, PROPERTY MANAGEMENT ASSISTANT Progressing 01/20/24 1607 Shahzrad Garcias, PROPERTY MANAGEMENT ASSISTANT Progressing 01/20/24 1036 Shahrzad Garcias, PROPERTY MANAGEMENT ASSISTANT Progressing 01/19/24 1721 Shahrzad Garcias PTA Progressing Goal Note filed on 01/21/24 174 by Shahrzad Garcias PTA Evaluation of progress towards goal: Problem: Transfers Dates: Start: 01/19/24 Disciplines: PT Goal: Patient will perform transfers with Contact Guard Dates: Start: 01/19/24 Expected End: 02/02/24 Description: Goal Description: Disciplines: PT Outcomes Date/Time User Outcome 01/21/24 1741 Shahrzad Garcias PTA Progressing 01/21/24 1309 Shahrzad Garcias, PROPERTY MANAGEMENT ASSISTANT Not Progressing 01/20/24 1607 Shahrzad Garcias, PROPERTY MANAGEMENT ASSISTANT Progressing 01/20/24 1036 Shahrzad Garcias, PROPERTY MANAGEMENT ASSISTANT Progressing 01/19/24 1721 Shahrzad Garcias PTA Progressing Goal Note filed on 01/21/24 174 by Shahrzad Garcias PTA Evaluation of progress towards goal: Physical Therapy Care Plan (Resolved) There are no resolved problems. Principal Problem: Closed fracture of right hip, initial encounter ([facility]) Active Problems: Closed displaced intertrochanteric fracture of right femur ([facility] [place]) Associated attestation - Brady Jauregui, PT - 01/22/2024 4:19 PM EDT I have reviewed and agree with this note and education documentation for this visit. [facility]06-09-2024 Progress note* PT/OT/MARKETING INFORMATION ANALYST - NALLELY Grey - 01/21/2024 11:13 AM [...] None Scoring Daily Activity Raw Score: 16 [facility] G Code Modifier: CK 01/21/24 1043 UE [...] pole Weight Bearing Status: WBAT Rt LE Telemetry/Surgical Endoscopist: No Oxygen Used: room air Other: fall [...] pt utilizing looped gait belt as leg rough carpenter for RLE to advance toward EOB. Pt [...] 1053 Ludy Vogt SERVIN/L Progressing 01/20/24 1610 CHARU MenesesA/Lanie Progressing 01/20/24 0945 Katlin Goins SERVIN/L Progressing 01/19/24 1531 Nano Maher SERVIN/L Progressing Problem: Bed Mobility Dates: Start: 01/19/24 Disciplines: OT Goal: Patient will perform bed mobility with Modified [place] Dates: Start: 01/19/24 Expected End: 02/09/24 Description: Goal Description: Disciplines: OT Outcomes Date/Time User Outcome 01/21/24 1053 Ludy Vogt, SERVIN/L Progressing 01/20/24 1610 Katlin Goins SERVIN/L Progressing 01/20/24 0945 Katlin Goins, SERVIN/L Progressing 01/19/24 1531 Nano Maher SERVIN/L Progressing Problem: Functional Mobility Dates: Start: 01/19/24 Disciplines: OT Goal: Patient will perform functional mobility with Modified [place] Dates: Start: 01/19/24 Expected End: 02/09/24 Description: [...] Outcomes Date/Time User Outcome 01/21/24 1053 Ludy oVgt SERVIN/L Progressing 01/20/24 1610 Katlin Goins, SERVIN/L [...] Ludy Vogt SERVIN/L Progressing 01/19/24 1531 Nano Maher, SERVIN/L Progressing Problem: Transfers Dates: Start: 01/19/24 Disciplines: OT Goal: Patient will perform transfers with Modified [place] Dates: Start: 01/19/24 Expected End: 02/09/24 Description: Goal Description: Disciplines: OT Outcomes Date/Time User Outcome 01/21/24 1053 Ludy Vogt SERVIN/L Not Progressing 01/20/24 1610 Katlin Goins, SERVIN/L Progressing 01/20/24 0945 Katlin Buster, SERVIN/L Progressing 01/19/24 1531 Nano Maher, SERVIN/L Progressing Occupational Therapy Care Plan (Resolved) There are no resolved problems. Principal Problem: Closed fracture of right hip, initial encounter ([facility]) Active Problems: Closed displaced intertrochanteric fracture of right femur ([facility]) Associated attestation - Virgil Nunes OTR/L - 01/21/2024 12:48 PM EDT I have reviewed and agree with this note and education documentation for this visit. [facility]06-09-2024 Progress note* PT/OT/MARKETING INFORMATION ANALYST - Shahrzad Garcias, PROPERTY MANAGEMENT ASSISTANT - 01/21/2024 9:49 AM EDT Physical Therapy [...] pole Weight Bearing Status: WBAT Rt LE Telemetry/Surgical Endoscopist: No Oxygen Used: room air Other: fall [...] railing required to complete. Use of limb rough carpenter for RLE support OOB. Increased time and [...] Date/Time User Outcome 01/21/24 1309 Shahrzad Garcias, PROPERTY MANAGEMENT ASSISTANT Progressing 01/20/24 1607 Shahrzad Garcias PTA Progressing [...] Garcias PTA Progressing 01/20/24 1036 Shahrzad Garcias, PROPERTY MANAGEMENT ASSISTANT Progressing 01/19/24 1721 Shahrzad Garcias PTA Progressing [...] Garcias PTA Progressing 01/20/24 1036 Shahrzad Garcias, PROPERTY MANAGEMENT ASSISTANT Progressing 01/19/24 1721 Shahrzad Garcias PTA Progressing [...] Closed fracture of right hip, initial encounter ([facility]) Active Problems: Closed displaced intertrochanteric fracture of right femur ([facility]) Associated attestation - Carlos Brar PT - 01/21/2024 3:57 PM EDT I have reviewed and agree with this note and education documentation for this visit. [facility]06-09-2024 Plan of care note* Plan of Care - Virgil Gonzalez RN - 01/21/2024 2:05 AM EDT Problem: Pain Goal: Patient goal is pain score less than 4, able to rest, and participant in treatment plan as appropriate Description: INTERVENTIONS: 1. Encourage patient or legal provider relations representative to report early pain and ask [...] per policy 9. Teach patient or legal provider relations representative interventions for comforting Outcome: Not Progressing [...] impact it will have on his body. [facility]* PT/OT/MARKETING INFORMATION ANALYST - NALLELY Meneses - 01/20/2024 4:21 PM [...] environment. Pt utilized gait belt as leg rough carpenter with cues for tech to A RLE [...] (-) Other: Pt completed standing marches with PROPERTY MANAGEMENT ASSISTANT with heavy BUE support on RW. Pt [...] OT Outcomes Date/Time User Outcome 01/20/24 1610 NALLELY Meneses 01/20/24 0945 Katlin Goins SERVIN/L Progressing 01/19/24 1531 Nano Maher SERVIN/L Progressing Problem: Bed Mobility Dates: Start: 01/19/24 Disciplines: OT Goal: Patient will perform bed mobility with Modified [place] Dates: Start: 01/19/24 Expected End: 02/09/24 Description: Goal Description: Disciplines: OT Outcomes Date/Time User Outcome 01/20/24 1610 Katlin Goins, SERVIN/L Progressing 01/20/24 0945 Katlin Goins SERVIN/L Progressing 01/19/24 1531 Nano Maher SERVIN/L Progressing Problem: Functional Mobility Dates: Start: 01/19/24 Disciplines: OT Goal: Patient will perform functional mobility with Modified [place] Dates: Start: 01/19/24 Expected End: 02/09/24 Description: [...] Goins SERVIN/L Progressing 01/19/24 1531 Nano Maher ESRVIN/L Progressing Problem: Standing Balance Dates: Start: 01/19/24 [...] Goal: Patient will perform transfers with Modified [place] Dates: Start: 01/19/24 Expected End: 02/09/24 Description: Goal Description: Disciplines: OT Outcomes Date/Time User Outcome 01/20/24 1610 MALATHI Meneses/Lanie Progressing 01/20/2445 CHARU MenesesA/L Progressing 01/19/24 1531 MALATHI Hernandez/Lanie Progressing Occupational Therapy Care Plan (Resolved) There are no resolved problems. Principal Problem: Closed fracture of right hip, initial encounter ([facility]) Active Problems: Closed displaced intertrochanteric fracture of right femur ([facility]) Associated attestation - Virgil Nunes OTR/L - 01/21/2024 12:48 PM EDT I have reviewed and agree with this note and education documentation for this visit. [facility]06-08-2024 Progress note* PT/OT/MARKETING INFORMATION ANALYST - Shahrzad Garcias PTA - 01/20/2024 3:15 [...] bed railing. Education provided on useof limb rough carpenter to assist RLE OOB. Pt able to [...] PTA Progressing Goal Note filed on 01/20/24 160 by Shahrzad Garcias PTA Evaluation of progress [...] Closed fracture of right hip, initial encounter ([facility]) Active Problems: Closed displaced intertrochanteric fracture of right femur ([facility]) Associated attestation - Carlos Brar PT - 01/21/2024 3:57 PM EDT I have reviewed and agree with this note and education documentation for this visit. [facility]06-08-2024 Consult note* Anne Ventura MD - 01/20/2024 [...] from lisinopril Chronic pain disorder Colon cancer ([facility] [place]) COPD (chronic obstructive pulmonary disease) ([facility] [place]) Depression Diabetes mellitus type 2, controlled ([facility] [place] [place]) Fibromyalgia, primary Fracture of right hip, closed, initial encounter ([facility] [place]) 01/17/2024 GERD (gastroesophageal reflux disease) Hyperlipidemia Hypertension Insulin-treated type 2 diabetes mellitus ([facility] [place]) Joint pain Kidney stones Liver disease Low back pain Neck pain Obesity Osteoarthritis Visual impairment PSH: Past Surgical History: Procedure Laterality Date BACK SURGERY COLON SURGERY resection, 2018, [facility] DAVINCI REPAIR HERNIA VENTRAL N/A 10/27/2021 Performed by Ridge Cedillo MD at [facility] DENTAL SURGERY pt had all teeth removed HERNIA REPAIR x's 2 INSERTION INTRAMEDULLARY NAIL FEMUR-TFNA HIP FX Right 01/18/2024 Performed by Ang Figueroa MD at [facility] ORTHOPEDIC SURGERY 2008 foot, infected foot Allergies Allergen Reactions Insulin Glargine Nausea And Vomiting and GI Disturbance Current Facility-Administered Medications: acetaminophen (TYLENOL EXTRA STRENGTH) tablet 1,000 mg, 1,000 mg, oral, Q6H SADA, Stephen Hannah MD, 1,000 mg at 01/20/24 0615 albuterol (PROVENTIL,VENTOLIN) nebulizer solution 2.5 mg, 2.5 mg, nebulization, Q6H PRN, Stephen Hannah MD calcium citrate (CALCITRATE) tablet 400 mg, 400 mg, oral, TID with meals, Vilma Beckwith PA-C, 400mg at 01/20/24 0904 carvediloL (COREG) tablet 6.25 mg, 6.25 mg, oral, BID with meals, Abad Diallo DO, 6.25 mg at 01/20/24 0904 cholecalciferol (vitamin D3) tablet 2,000 Units, 2,000 [...] Vilma Beckwith PA-C, 1 mg at 01/20/24 0813 ibuprofen (MOTRIN) tablet 800 mg, 800 mg, oral, Q6H PRN, Stephen Hannah MD, 800 mg at 01/17/242013 insulin lispro (HumaLOG) injection 1-4 Units, 1-4 Units, subcutaneous, Nightly, Vilma Beckwith PA-C, 1 Units at 01/19/242135 insulin lispro (HumaLOG) injection 1-5 Units, 1-5 Units, subcutaneous, TID with meals, Vilma Beckwith PA-C, 2 Units at 01/19/24 181 lidocaine (LIDODERM) 5 % 1 patch, 1 [...] you for the consultation Anne Ventura MD [facility]06-08-2024 Consult note* Anne Ventura MD - 01/20/2024 [...] from lisinopril Chronic pain disorder Colon cancer ([facility] [place]) COPD (chronic obstructive pulmonary disease) ([facility] [place]) Depression Diabetes mellitus type 2, controlled ([facility] [place] [place]) Fibromyalgia, primary Fracture of right hip, closed, initial encounter ([facility] [place]) 01/17/2024 GERD (gastroesophageal reflux disease) Hyperlipidemia Hypertension Insulin-treated type 2 diabetes mellitus ([facility] [place]) Joint pain Kidney stones Liver disease Low back pain Neck pain Obesity Osteoarthritis Visual impairment PSH: Past Surgical History: Procedure Laterality Date BACK SURGERY COLON SURGERY resection, 2018, [facility] DAVINCI REPAIR HERNIA VENTRAL N/A 10/27/2021 Performed by Ridge Cedillo MD at [facility] DENTAL SURGERY pt had all teeth removed HERNIA REPAIR x's 2 INSERTION INTRAMEDULLARY NAIL FEMUR-TFNA HIP FX Right 01/18/2024 Performed by Ang Figueroa MD at [facility] ORTHOPEDIC SURGERY 2007 foot, infected foot Allergies Allergen Reactions Insulin Glargine Nausea And Vomiting and GI Disturbance Current Facility-Administered Medications: acetaminophen (TYLENOL EXTRA STRENGTH) tablet 1,000 mg, 1,000 mg, oral, Q6H SADA, Stephen Hannah MD, 1,000 mg at 01/20/24 0615 albuterol (PROVENTIL,VENTOLIN) nebulizer solution 2.5 mg, 2.5 [...] breakfast, Stephen Hannah MD, 134 mg at 01/20/2404 gabapentin (NEURONTIN) capsule 800 mg, 800 mg, oral, 4x Daily, Stephen Hannah MD, 800 mg at 01/20/24 09 glucagon HCL injection 1 mg, 1 mg, [...] Abad Diallo, DO, 40 mg at 01/20/24 0617 polyethylene [...] 550 mg, 550 mg, oral, Q12H SADA, Mahherrerad Imani, DO, 550 mg at 01/20/24 0907 sennosides-docusate sodium (SENOKOT-S) 8.6-50 mg 2 tablet, 2 tablet, oral, BID, Stephen Hannah MD, 2 tablet at 01/20/24 0905 tamsulosin (FLOMAX) 24 hr capsule 0.4 mg, 0.4 mg, oral, Nightly, Stephen Hannah MD, 0.4 mg at 01/19/249 Social History Socioeconomic History Marital status: Single [...] consultation Anne Ventura MD * Hannah Nails, LD - 01/18/2024 2:17 PM EDTAssociated Order(s): IP CONSULT TO NUTRITION SERVICES NUTRITION ADULT INITIAL EVALUATION NUTRITION ASSESSMENT: Reason to be seen: Consult for assessment Patient History: Admit Diagnosis: Patient Active Problem List Diagnosis Facial infection Abdominal pain Closed displaced intertrochanteric fracture of right femur ([facility]) Closed fracture of right hip, initial encounter ([facility] [place]) Past Medical History: Past Medical History: Diagnosis Date Asthma Back pain Chronic cough from lisinopril Chronic pain disorder Colon cancer ([facility] [place]) COPD (chronic obstructive pulmonary disease) ([facility] [place]) Depression Diabetes mellitus type 2, controlled ([facility] [place]) Fibromyalgia, primary Fracture of right hip, closed, initial encounter ([facility] [place]) 01/17/2024 GERD (gastroesophageal reflux disease) Hyperlipidemia Hypertension Insulin-treated type 2 diabetes mellitus ([facility] [place]) Joint pain Kidney stones Liver disease Low back pain Neck pain Obesity Osteoarthritis Visual impairment Past Surgical History: Past Surgical History: Procedure Laterality Date BACK SURGERY COLON SURGERY resection, 2017, [facility] DAVINCI REPAIR HERNIA VENTRAL N/A 10/27/2021 Performed by Ridge Cedillo MD at [facility] D[facility] pt had all teeth removed HERNIA REPAIR x's 2 ORTHOPEDIC SURGERY 2007 foot, infected foot Brief Clinical Summary: Patient initially presented to [facility] d/t right hip pain s/p fall. [facility] with right hip fracture. PMHx includes IDDM2, [...] (L) 01/17/2024 Lab Results Component Value Date [id number] 01/17/2024 Lab Results Component Value Date [...] tablet 1,000 mg 1,000 mg oral Q6H [facility] Stephen Hannah MD 1,000 mg at 01/18/24 [...] Skin (per nursing flow sheets): Skin Color: [place] (01/18/241334) Skin Temp: Dry; Warm (01/18/241334) Wound (per nursing flow sheets): Wound 01/18/24 Incision Leg Right-Site Assessment: Unable to assess (01/18/241334) Gastrointestinal (per nursing flow sheets): Abdomen Assessment: Rounded; Obese (01/18/241334) Last BM Date: 01/15/24 (01/18/24 0800) Passing Flatus: No (01/18/241334) RUQ Bowel Sounds: Hypoactive (01/18/241334) LUQ Bowel Sounds: Hypoactive (01/18/241334) RLQ Bowel Sounds: Hypoactive (01/18/24 1335) LLQ Bowel Sounds: Hypoactive (01/18/24 1335) GI Symptoms: None (01/18/24 1335) Edema (per nursing flow sheets): --- Intake/ Output Last 24 hrs: Intake/Output Summary (Last 24 hours) at 01/18/2024 1417 Last data filed at 01/18/2024 1315 Gross per 24 hour Intake 800 ml Output 2200 ml Net -1400 ml Food/Nutrition Related History: Diet History: Unable to obtain diet/weight history at this time as patient currently off the floor.Patient did not trigger for 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 Allergies: Allergies Allergen Reactions [...] from 08/19/22) Usual Body Weight: 113.4kg (08/19/22) [place] Body Weight: 83.6kg Percent [place] Body Weight: 139 Weight Changes: Need new weight, bed scale vs standing scale. Body Mass Index: Body mass index is 33.65 kg/m . BMI Category: Obese class 1 (30.00- 34.99) Comparative Standards: Estimated Energy Needs: 6144-0686 kcals daily. Method and weight used: 25-32 kcal/kg IBW (83.6kg) Estimated Protein Needs: 100-165 grams daily. Method and weight used: 1.2-2g protein/kg IBW Estimated Fluid Needs: 8990-4435 ml daily. Method weight used: 1ml/kcal Comments: [...] is a 53 y.o. male presents to [facility] c/o right hip pain after a fall. [...] at outside hospital and was transferred to [facility] for[facility] management. Patient has no other complaints [...] Chronic cough Chronic pain disorder Colon cancer ([facility]) Colon cancer ([facility]) Depression Diabetes mellitus type 2, controlled ([facility]) Fibromyalgia, primary GERD (gastroesophageal reflux disease) Hyperlipidemia Hypertension Insulin-treated type 2 diabetes mellitus ([facility]) Joint pain Kidney stones Liver disease Low back pain Neck pain Obesity Osteoarthritis Visual impairment Past Surgical History: Procedure Laterality Date BACK SURGERY COLON SURGERY resection, 2018, [facility] DAVINCI REPAIR HERNIA VENTRAL N/A 10/27/2021 Performed by Ridge Cedillo MD at [facility] D[facility] SUR[facility] pt had all teeth [...] contact ortho hot pager for any questions/concerns [phone] LUIS MCCARTHY PA-C 01/17/24 1112 IANG MD, personally performed the face to face diagnostic evaluation on this patient. My findings are as follows: Patient seen evaluated in the emergency department. He was transferred from [place] for orthopedic care to [place]. He had a mechanical fall resulting in [...] standpoint. Ang Figueroa MD. [facility] Progress note* PT/OT/MARKETING INFORMATION ANALYST - NALLELY Meneses - 01/20/2024 10:11 AM [...] Utilized gait belt to act as leg rough carpenter; instructed pt to lift R leg to [...] 01/20/24 09Elpidio Goins, SERVIN/L Progressing 01/19/24 1531 MALATHI Hernandez/Lanie Progressing Problem: Bed Mobility Dates: Start: 01/19/24 Disciplines: OT Goal: Patient will perform bed mobility with Modified [place] Dates: Start: 01/19/24 Expected End: 02/09/24 Description: Goal Description: Disciplines: OT Outcomes Date/Time User Outcome 01/20/24 09Elpidio Goins SERVIN/L Progressing 01/19/24 1531 MALATHI Hernandez/Lanie Progressing Problem: Functional Mobility Dates: Start: 01/19/24 Disciplines: OT Goal: Patient will perform functional mobility with Modified [place] Dates: Start: 01/19/24 Expected End: 02/09/24 Description: Goal Description: Disciplines: OT Outcomes Date/Time User Outcome 01/20/24 09Elpidio Goins, SERVIN/L Progressing 01/19/24 1531 MALATHI Hernandez/Lanie Progressing Problem: Other (Customize) Dates: Start: 01/19/24 Disciplines: OT Goal: Improve Dates: Start: 01/19/24 Expected End: 02/09/24 Description: Goal Description: Complete ADLs [place] with AE/DME Disciplines: OT Outcomes Date/Time User Outcome 01/20/24 09CHARU ReidA/Lanie Progressing Problem: Sitting Balance Dates: Start: 01/19/24 Disciplines: OT Goal: Improve balance to good Dates: Start: 01/19/24 Expected End: 02/09/24 Description: Static Dynamic Disciplines: OT Outcomes Date/Time User Outcome 01/20/24 09CHARU ReidA/L Progressing 01/19/24 1531 CHARU HernandezA/Lanie Progressing Problem: [...] Goal: Patient will perform transfers with Modified [place] Dates: Start: 01/19/24 Expected End: 02/09/24 Description: Goal Description: Disciplines: OT Outcomes Date/Time User Outcome 01/20/24 09Elpidio Goins SERVIN/L Progressing 01/19/24 1531 CHARU HernandezA/Lanie Progressing Occupational Therapy Care Plan (Resolved) There are no resolved problems. Principal Problem: Closed fracture of right hip, initial encounter ([facility]) Active Problems: Closed displaced intertrochanteric fracture of right femur ([facility]) Associated attestation - Virgil Nunes OTR/L - 01/20/2024 1:17 PM EDT I have reviewed and agree with this note and education documentation for this visit. [facility] [place] [phone] Progress note* PT/OT/MARKETING INFORMATION ANALYST - Shahrzad Garcias, PROPERTY MANAGEMENT ASSISTANT - 01/20/2024 8:17 AM EDT Physical Therapy [...] EOB. Use of gait belt as limb rough carpenter for RLE with fair- poor carryover. Pt displayed decreased ability to scoot hips to EOB d/t pain in R hip and required assistance from song writer to complete. Pt denied dizziness with [...] handles to complete. First attempt was unsuccessful. Door Trimmer educated pt on use of momentum and [...] Closed fracture of right hip, initial encounter ([facility]) Active Problems: Closed displaced intertrochanteric fracture of right femur ([facility]) Associated attestation - Brady Jauregui PT - 01/20/2024 3:30 PM EDT I have reviewed and agree with this note and education documentation for this visit. [facility]06-07-2024 Progress note* Discharge Planning Note - Jackie Caal - 01/19/2024 3:48 PM EDT DISCHARGE PLANNING NOTE Referral to [address]- [place] (P# ; F# ); [place] (P#[phone] ; F# [phone]) and [facility] ([place]- P# ; F# ) ([place], [place] P# ; F#) [facility]06-07-2024 Progress note* PT/OT/MARKETING INFORMATION ANALYST - NALLELY Hernandez - 01/19/2024 3:32 PM [...] User Outcome 01/19/24 Shahnaz NALLELY Hernandez Progressing Problem: Bed Mobility Dates: Start: 01/19/24 Disciplines: OT Goal: Patient will perform bed mobility with Modified [place] Dates: Start: 01/19/24 Expected End: 02/09/24 Description: Goal Description: Disciplines: OT Outcomes Date/Time User Outcome 01/19/24 153Yohana NALLELY Hernandez Progressing Problem: Functional Mobility Dates: Start: 01/19/24 Disciplines: OT Goal: Patient will perform functional mobility with Modified [place] Dates: Start: 01/19/24 Expected End: 02/09/24 Description: Goal Description: Disciplines: OT Outcomes Date/Time User Outcome 01/19/24 Shahnaz NALLELY Hernandez Progressing Problem: Other (Customize) Dates: Start: 01/19/24 Disciplines: OT Goal: Improve Dates: Start: 01/19/24 Expected End: 02/09/24 Description: Goal Description: Complete ADLs [place] with AE/DME Disciplines: OT Problem: Sitting Balance Dates: Start: 01/19/24 Disciplines: OT Goal: Improve balance to good Dates: Start: 01/19/24 Expected End: 02/09/24 Description: Static Dynamic Disciplines: OT Outcomes Date/Time User Outcome 01/19/24 EldaNALLELY Sunshine Progressing Problem: Standing Balance Dates: Start: 01/19/24 Disciplines: OT Goal: Improve balance to good Dates: Start: 01/19/24 Expected End: 02/09/24 Description: Static Dynamic Disciplines: OT Outcomes Date/Time User Outcome 01/19/24 EldaNALLELY Sunshine Progressing Problem: Strength Dates: Start: 01/19/24 Disciplines: OT Goal: Improve strength Dates: Start: 01/19/24 Expected End: 02/09/24 Description: Of extremity/ location: Tolerate bilat UE exercises to increase strength and endurancefor self care tasks. To facilitate: Disciplines: OT Outcomes Date/Time User Outcome 01/19/24 1531 Nano MaherCHARUA/Lanie Progressing Problem: Transfers Dates: Start: 01/19/24 Disciplines: OT Goal: Patient will perform transfers with Modified [place] Dates: Start: 01/19/24 Expected End: 02/09/24 Description: Goal Description: Disciplines: OT Outcomes Date/Time User Outcome 01/19/24 1531 Nano Maher SERVIN/Lanie Progressing Occupational Therapy Care Plan (Resolved) There are no resolved problems. Principal Problem: Closed fracture of right hip, initial encounter ([facility]) Active Problems: Closed displaced intertrochanteric fracture of right femur ([facility]) Associated attestation - Virgil Nunes OTR/L - 01/20/2024 1:17 PM EDT I have reviewed and agree with this note and education documentation for this visit. [facility]06-07-2024 Progress note* Discharge Planning Note - JEWEL [...] home care arranged. Referral's were placed to [facility] ([facility]st choice) & [facility], await acceptance. - JEWEL Crenshaw 01/19/24 3:08 PM [facility]06-07-2024 Progress note* PT/OT/MARKETING INFORMATION ANALYST - Shahrzad Garcias, PROPERTY MANAGEMENT ASSISTANT - 01/19/2024 1:55 PM EDT Physical Therapy [...] transition. Pt had difficutly following direction/cueing from song writer. Visual demo and tactile cueing provided [...] Goal Note filed on 01/19/241720 by Shahrzad aGrcias PTA Evaluation of progress towards goal: Problem: [...] Closed fracture of right hip, initial encounter ([facility]) Active Problems: Closed displaced intertrochanteric fracture of right femur ([facility]) Associated attestation - Brady Jauregui, PT - 01/20/2024 3:30 PM EDT I have reviewed and agree with this note and education documentation for this visit. [facility]06-07-2024 Progress note* PT/OT/MARKETING INFORMATION ANALYST - Lindsay Infante, PT - 01/19/2024 1:52 PM EDT Physical Therapy Evaluation Discharge Recommendations PT Recommendations: Inpatient Rehab Inpatient Rehab Criteria: All inpatient rehab criteria expected to be met Therapy Plan Need for skilled Physical Therapy to address deficits in functional mobility due to a status decline resulting from hospitalization. Pt to [facility] via EMS with Rt LE pain. [...] from lisinopril Chronic pain disorder Colon cancer ([facility]) COPD (chronic obstructive pulmonary disease) ([facility]) Depression Diabetes mellitus type 2, controlled ([facility]) Fibromyalgia, primary Fracture of right hip, closed, initial encounter ([facility]) 01/17/2024 GERD (gastroesophageal reflux disease) Hyperlipidemia Hypertension Insulin-treated type 2 diabetes mellitus ([facility]) Joint pain Kidney stones Liver disease Low back pain Neck pain Obesity Osteoarthritis Visual impairment Past Surgical History: Procedure Laterality Date BACK SURGERY COLON SURGERY resection, 2018, [facility] DAVINCI REPAIR HERNIA VENTRAL N/A 10/27/2021 Performed by Ridge Cedillo MD at [facility] DENTAL SURGERY pt had all teeth removed HERNIA REPAIR x's 2 INSERTION INTRAMEDULLARY NAIL FEMUR-TFNA HIP FX Right 01/18/2024 Performed by Ang Figueroa MD at [facility] ORTHOPEDIC SURGERY 2008 foot, infected foot 6 [...] 6 Clicks: Basic Mobility Raw Score: 11 [facility] G Code Modifier: CL Recommended Consults: PM&R [...] Closed fracture of right hip, initial encounter ([facility]) Active Problems: Closed displaced intertrochanteric fracture of right femur ([facility]) eblizz [id number] Progress note* PT/OT/MARKETING INFORMATION ANALYST - WILLARD Chavira/Lanie - 01/19/2024 1:03 PM [...] status decline resulting from hospitalization. Pt to [facility] via EMS with Rt LE pain. [...] from lisinopril Chronic pain disorder Colon cancer ([facility]) COPD (chronic obstructive pulmonary disease) ([facility]) Depression Diabetes mellitus type 2, controlled ([facility]) Fibromyalgia, primary Fracture of right hip, closed, initial encounter ([facility]) 01/17/2024 GERD (gastroesophageal reflux disease) Hyperlipidemia Hypertension Insulin-treated type 2 diabetes mellitus ([facility]) Joint pain Kidney stones Liver disease Low back pain Neck pain Obesity Osteoarthritis Visual impairment Past Surgical History: Procedure Laterality Date BACK SURGERY COLON SURGERY resection, 2018, [facility] DAVINCI REPAIR HERNIA VENTRAL N/A 10/27/2021 Performed by Ridge Cedillo MD at [facility] DENT[facility] SURGERY pt had all teeth removed HERNIA REPAIR x's 2 INSERTION INTRAMEDULLARY NAIL FEMUR-TFNA HIP FX Right 01/18/2024 Performed by Ang Figueroa MD at [facility] ORTHOPEDIC SURGERY 2007 foot, infected foot Chief [...] shower chair) Other : No AE/DME needs 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 shoulder and elbow 4-/5. Instant Powder Supervisor 3+/5) Activity Tolerance Endurance: Tolerates >30 minutes [...] Patient will perform bed mobility with Modified [place] Dates: Start: 01/19/24 Expected End: 02/09/24 Description: Goal Description: Disciplines: OT Problem: Functional Mobility Dates: Start: 01/19/24 Disciplines: OT Goal: Patient will perform functional mobility with Modified [place] Dates: Start: 01/19/24 Expected End: 02/09/24 Description: [...] Goal: Patient will perform transfers with Modified [place] Dates: Start: 01/19/24 Expected End: 02/09/24 Description: Goal Description: Disciplines: OT Occupational Therapy Care Plan (Resolved) There are no resolved problems. Principal Problem: Closed fracture of right hip, initial encounter ([facility]) Active Problems: Closed displaced intertrochanteric fracture of right femur ([facility]) [facility] [place] [id number] Plan of care note* Plan of Care - Lian Silva RN - 01/19/2024 12:34 PM EDT Problem: Pain Goal: Patient goal is pain score less than 4, able to rest, and participant in treatment plan as appropriate Description: INTERVENTIONS: 1. Encourage patient or legal provider relations representative to report early pain and ask [...] per policy 9. Teach patient or legal provider relations representative interventions for comforting Outcome: Progressing Note: [...] at the bedside 7. Instruct patient/ patient provider relations representative about use of safety devices 8. Include patient/ patient provider relations representative in decisions related to safety Outcome: [...] Score of =/> 25 or indicated by [facility] Assessment Goal: Patient should be free from fall Description: Interventions: 1. [place] to environment 2. Hourly rounds addressing the [...] non-skid footwear 11. Teach patient and patient provider relations representative to maintain environment for safety and [...] (cane, walker) within reach 19. Request patient provider relations representative bring adaptive equipment/mobility aids from home or obtain and provide as needed 20. Consult pharmacy regarding effects of med's affecting mobility, cognition, and alternatives 21. Obtain physician order for PT if risk factors associated with mobility are present 22. Obtain physician order for OT as appropriate 23. Utilize diversional activities 24. Educate patient and patient provider relations representative how to maintain a safe environment during visitationtimes (notify nurse prior to leaving bedside) 25. Consider appropriateness of medical or non-biomedical engineering technician 26. Set up voiding schedule as appropriate (every 2 hours) Outcome: Progressing Note: Evaluation of progress towards goal: Call light within reach. Remains free of fall or injury.Environment free of clutter. [facility]06-06-2024 Plan of care note* Plan of Care [...] hygiene technique 7. Identify and instruct patient/patient provider relations representative in use of appropriate isolation precautionsfor identified infection/symptoms 8. Provide and discuss with patient/patient provider relations representative on educational MDRO sheet 9. Encourage and monitor nutritional status daily and consult validation manager if indicated 10. Implement neutropenic guidelines as [...] be free from fall Description: Interventions: 1. Amidon to environment 2. Hourly rounds addressing the [...] non-skid footwear 11. Teach patient and patient provider relations representative to maintain environment for safety and [...] (cane, walker) within reach 19. Request patient provider relations representative bring adaptive equipment/mobility aids from home or obtain and provide as needed 20. Consult pharmacy regarding effects of med's affecting mobility, cognition, and alternatives 21. Obtain physician order for PT if risk factors associated with mobility are present 22. Obtain physician order for OT as appropriate 23. Utilize diversional activities 24. Educate patient and patient provider relations representative how to maintain a safe environment during visitationtimes (notify nurse prior to leaving bedside) 25. Consider appropriateness of medical or non-biomedical engineering technician 26. Set up voiding schedule as appropriate (every 2 hours) Outcome: Progressing Note: Evaluation of progress towards goal: Patient remains fall free at this time, fall precautionsin place. [facility]06-06-2024 Nurse Note* Gurjit Drummond RN - 01/18/2024 3:27 PM EDT Pt here in [facility] from Xray. Pt. C/o right hip surgery site pain. 9/10. SWAT RN put 2 bags of ice to the surgery site . [facility]06-06-2024 Nurse Note* Gurjit Drummond RN - 01/18/2024 [...] needs at this time. [facility] Consult note* HannahAARTI Crawford - 01/18/2024 2:17 PM EDTAssociated Order(s): IP CONSULT TO NUTRITION SERVICES NUTRITION ADULT INITIAL EVALUATION NUTRITION ASSESSMENT: Reason to be seen: Consult for assessment Patient History: Admit Diagnosis: Patient Active Problem List Diagnosis Facial infection Abdominal pain Closed displaced intertrochanteric fracture of right femur ([facility]) Closed fracture of right hip, initial encounter ([facility]) Past Medical History: Past Medical History: Diagnosis Date Asthma Back pain Chronic cough from lisinopril Chronic pain disorder Colon cancer ([facility]) COPD (chronic obstructive pulmonary disease) ([facility]) Depression Diabetes mellitus type 2, controlled ([facility]) Fibromyalgia, primary Fracture of right hip, closed, initial encounter ([facility]) 01/17/2024 GERD (gastroesophageal reflux disease) Hyperlipidemia Hypertension Insulin-treated type 2 diabetes mellitus ([facility]) Joint pain Kidney stones Liver disease Low back pain Neck pain Obesity Osteoarthritis Visual impairment Past Surgical History: Past Surgical History: Procedure Laterality Date BACK SURGERY COLON SURGERY resection, 2018, [facility] DAVINCI REPAIR HERNIA VENTRAL N/A 10/27/2021 Performed by Ridge Cedillo MD at [facility] DENTAL SURGERY pt had all teeth removed HERNIA REPAIR x's 2 ORTHOPEDIC SURGERY 2007 foot, infected foot Brief Clinical Summary: Patient initially presented to OSH d/t right hip pain s/p fall. [facility] with right hip fracture. PMHx includes IDDM2, [...] 7 days Lab Units 01/18/24 0724 01/18/24 02501/17/24 1754 01/17/24 0535 BEDSIDE GLUCOSE mg/dL 119* [...] (L) 01/17/2024 Lab Results Component Value Date [id number] 242 01/17/2024 Lab Results Component Value Date [...] tablet 1,000 mg 1,000 mg oral Q6H [facility] Stephen Hannah MD 1,000 mg at 01/18/24 [...] Stephen Hannah MD 0.4 mg at 01/17/24 2148 Nutrition Focused Physical Findings Last BM 01/14 Extremities, Muscles, and Bones A. Muscle Loss-EMILY not on floor B. Loss of Subcutaneous Fat-EMILY not on floor Skin (per nursing flow sheets): Skin Color: [place] (01/18/24 1335) Skin Temp: Dry; Warm (01/18/24 1335) Wound (per nursing flow sheets): Wound 01/18/24 Incision Leg Right-Site Assessment: Unable to assess (01/18/24 1335) Gastrointestinal (per nursing flow sheets): Abdomen Assessment: Rounded; Obese (01/18/24 1335) Last BM Date: 01/15/24 (01/18/24 0800) Passing Flatus: No (01/18/24 1335) RUQ Bowel Sounds: Hypoactive (01/18/24 1335) LUQ Bowel Sounds: Hypoactive (01/18/24 1335) RLQ Bowel Sounds: Hypoactive (01/18/24 1335) LLQ Bowel Sounds: Hypoactive (01/18/24 1335) GI [...] floor.Patient did not trigger for 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 Allergies: Allergies Allergen Reactions [...] from 08/19/22) Usual Body Weight: 113.4kg (08/19/22) [place] Body Weight: 83.6kg Percent [place] Body Weight: 139 Weight Changes: Need new weight, bed scale vs standing scale. Body Mass Index: Body mass index is 33.65 kg/m . BMI Category: Obese class 1 (30.00- 34.99) Comparative Standards: Estimated Energy Needs: 7226-4631 kcals daily. Method and weight used: 25-32 kcal/kg IBW (83.6kg) Estimated Protein Needs: 100-165 grams daily. Method and weight used: 1.2-2g protein/kg IBW Estimated Fluid Needs: 3010-4104 ml daily. Method weight used: 1ml/kcal Comments: [...] Nails RD, LD Clinical Dietitian Direct Line: [facility] [place] [id number] Procedure note* Op Note - Ang Figueroa MD - 01/18/2024 12:24 PM EDT DATE OF OPERATION: January 18, 2024 PREOPERATIVE DIAGNOSIS: 1. right intertrochanteric hip fracture. POSTOPERATIVE DIAGNOSIS: 1. Same OPERATION: 1. IM nail right intertrochanteric hip fracture.- [id number] SURGEON: Ang Figueroa MD CONDUCTOR PULLMAN: none ANESTHESIA: General. MEDICATIONS: ancef IV preop. [...] at time of surgery. ANG FIGUEROA MD [facility]06-06-2024 Attending History and physical note* Ang Figueroa [...] is a 53 y.o. male presents to [facility] c/o right hip pain after a fall. [...] at outside hospital and was transferred to [facility] forfurther management. Patient has no other complaints [...] Chronic cough Chronic pain disorder Colon cancer ([facility]) Colon cancer ([facility]) Depression Diabetes mellitus type 2, controlled ([facility]) Fibromyalgia, primary GERD (gastroesophageal reflux disease) Hyperlipidemia Hypertension Insulin-treated type 2 diabetes mellitus ([facility]) Joint pain Kidney stones Liver disease Low back pain Neck pain Obesity Osteoarthritis Visual impairment Past Surgical History: Procedure Laterality Date BACK SURGERY COLON SURGERY resection, 2018, [facility] DAVINCI REPAIR HERNIA VENTRAL N/A 10/27/2021 Performed by Ridge Cedillo MD at [facility] DENTAL SURGERY pt had all teeth removed [...] contact ortho hot pager for any questions/concerns [phone] LUIS MCCARTHY PA-C 01/17/24 1114 I, ANG FIGUEROA MD, personally performed the face to face diagnostic evaluation on this patient. My findings are as follows: Patient seen evaluated in the emergency department. He was transferred from [place] for orthopedic care to [place]. He had a mechanical fall resulting in [...] for the medical standpoint. Ang Figueroa MD. [employer] Work Phone: 1(795) 540-297106-06-2024 History and physical note* Ang Figueroa MD [...] is a 53 y.o. male presents to [facility] c/o right hip pain after a fall. [...] at outside hospital and was transferred to [facility] forfurther management. Patient has no other complaints [...] pain disorder Colon cancer (CMS-HCC) Colon cancer ([facility]) Depression Diabetes mellitus type 2, controlled ([facility]) Fibromyalgia, primary GERD (gastroesophageal reflux disease) Hyperlipidemia Hypertension Insulin-treated type 2 diabetes mellitus ([facility]) Joint pain Kidney stones Liver disease Low back pain Neck pain Obesity Osteoarthritis Visual impairment Past Surgical History: Procedure Laterality Date BACK SURGERY COLON SURGERY resection, 2018, [facility] DAVINCI REPAIR HERNIA VENTRAL N/A 10/27/2021 Performed by Ridge Cedillo MD at [facility] DENTAL SURGERY pt had all teeth removed [...] contact ortho hot pager for any questions/concerns [phone] LUIS MCCARTHY PA-C 01/17/24 1112 I, ANG FIGUEROA MD, personally performed the face to face diagnostic evaluation on this patient. My findings are as follows: Patient seen evaluated in the emergency department. He was transferred from [place] for orthopedic care to [place]. He had a mechanical fall resulting in [...] Closed fracture of right hip, initial encounter ([facility]) CHIEF COMPLAINT: Right hip pain SUBJECTIVE: Patient is a 53-year-old male with known Hx/o DM2, HTN, HLD, COPD, Chronic pain disorder, Fibromyalgia, GERD/Esophagitis, Colon cancer s/p sigmoid colectomy, Liver cirrhosis secondary to hepatitis C,Chronic thrombocytopenia, cervical radiculopathy related to C5-C7 herniated disc presents with mechanical fall and right hip pain initially to [facility] and transferred to [facility]. Patient awake oriented x3 does not be [...] pain disorder Colon cancer (CMS-HCC) Colon cancer ([facility]) Depression Diabetes mellitus type 2, controlled (CMS-HCC) [...] Date BACK SURGERY COLON SURGERY resection, 2018, [facility] DAVINCI REPAIR HERNIA VENTRAL N/A 10/27/2021 Performed by Ridge Cedillo MD at [facility] D[facility] pt had all teeth [...] fall and right hip pain initially to [facility] and transferred to [facility]. 1. Acute nondisplaced intertrochanteric right hip fracture [...] CTP class A, MELD score 7, per [place] score has only 0.6%30 day mortality risk, [...] This note was completed using a voice manager emergency department system. Every effort was made to ensure accuracy. However, inadvertent computerized manager emergency department errors may be present. documented in this encounterBrattleboro Memorial HospitalInertia Beverage Group [id number] Progress note* Discharge Planning Note - JEWEL Crenshaw - 01/18/2024 10:29 AM EDT Images from the original note were not included. DISCHARGE PLANNING NOTE SW met with patient introduced self & role. Pt was alert, oriented during assessment. Pt was transferred to [facility] from [facility] where pt presented with leg and [...] Yes List Provided: Yes [facility] List Provided: [facility] Facility Initial DC Assessment Completed: Yes Patient Goals: Goals: Goals (pt-stated) Evaluation of progress towards goal: possible rehab placement vs home pending progress, recommendations and pt decision - JEWEL Crenshaw 01/18/24 10:33 AM [facility]06-06-2024 Hospital Discharge instructions* Discharge Instructions* Tom Marquez PA-C - 01/18/2024 10:29 AM EDT ORTHOPAEDIC DISCHARGE INSTRUCTIONS Diagnosis: right IT hip fracture Procedure: short IMN right hip Follow-Up Appointment: Dr. Figueroa on 02/01/24 @ 9:30AM Office Location: [facility] [address] [place] [address] Call 911 immediately if you experience: Chest [...] and is not recommended. documented in this encounterFayette [facility]06-[facility] Plan of care note * Plan of Care - Lian Silva RN - 01/18/2024 9:02 AM EDT Problem: Pain Goal: Patient goal is pain score less than 4, able to rest, and participant in treatment plan as appropriate Description: INTERVENTIONS: 1. Encourage patient or legal provider relations representative to report early pain and ask [...] per policy 9. Teach patient or legal provider relations representative interventions for comforting Outcome: Progressing Note: [...] at the bedside 7. Instruct patient/ patient provider relations representative about use of safety devices 8. Include patient/ patient provider relations representative in decisions related to safety Outcome: [...] hygiene technique 7. Identify and instruct patient/patient provider relations representative in use of appropriate isolation precautionsfor identified infection/symptoms 8. Provide and discuss with patient/patient provider relations representative on educational MDRO sheet 9. Encourage and monitor nutritional status daily and consult validation manager if indicated 10. Implement neutropenic guidelines as needed 11. Review exposure to history of communicable disease and recent travel history on admission 12. Encourage annual influenza vaccine 13. Encourage pneumonia vaccine Outcome: Progressing Note: Evaluation of progress towards goal: Skin integrity remains in stable condition; remains w/o ss of infection, fever, pain, or increased discomfort. Problem: Knowledge Deficit Goal: Patient/patient provider relations representative demonstrates understanding of disease process, treatment [...] discharge planning process 5. Communicate referral to natural resources extension educator as appropriate 6. Communicate referral to validation manager as appropriate 7. Collaborate with case management/social contact worker for discharge needs Outcome: Progressing Note: Evaluation of progress towards goal: Discharge planning in process; will continue to monitor for discharge needs. Problem: Moderate - High Risk Fall Score Description: [place] Fall Score of =/> 25 or indicated by [facility] Assessment Goal: Patient should be free from fall Description: Interventions: 1. Amidon to environment 2. Hourly rounds addressing the [...] non-skid footwear 11. Teach patient and patient provider relations representative to maintain environment for safety and [...] (cane, walker) within reach 19. Request patient provider relations representative bring adaptive equipment/mobility aids from home or obtain and provide as needed 20. Consult pharmacy regarding effects of med's affecting mobility, cognition, and alternatives 21. Obtain physician order for PT if risk factors associated with mobility are present 22. Obtain physician order for OT as appropriate 23. Utilize diversional activities 24. Educate patient and patient provider relations representative how to maintain a safe environment during visitationtimes (notify nurse prior to leaving bedside) 25. Consider appropriateness of medical or non-biomedical engineering technician 26. Set up voiding schedule as appropriate (every 2 hours) Outcome: Progressing Note: Evaluation of progress towards goal: Call light within reach. Remains free of fall or injury.Environment free of clutter. [facility]06-06-2024 Nurse Note* Gin Palm RN - 01/18/2024 7:49 AM EDT [facility], awaiting transport. Patient denies any needs at this time. [facility]06-06-2024 Progress note* PT/OT/MARKETING INFORMATION ANALYST - ALICIA Chavira - 01/18/2024 7:39 AM EDT Occupational Therapy CANCEL - Deferred Orders received for OT evaluation. Pt scheduled for hip fracture repair this date. Will check back post op [facility]06-06-2024 Plan of care note* Plan of Care - Carin Contreras RN - 01/18/2024 5:30 AM EDT Problem: Moderate - High Risk Fall Score Description: Arredondo Fall Score of =/> 25 or indicated by [facility] Assessment Goal: Patient should be free from fall Description: Interventions: 1. [place] to environment 2. Hourly rounds addressing the [...] non-skid footwear 11. Teach patient and patient provider relations representative to maintain environment for safety and [...] (cane, walker) within reach 19. Request patient provider relations representative bring adaptive equipment/mobility aids from home or obtain and provide as needed 20. Consult pharmacy regarding effects of med's affecting mobility, cognition, and alternatives 21. Obtain physician order for PT if risk factors associated with mobility are present 22. Obtain physician order for OT as appropriate 23. Utilize diversional activities 24. Educate patient and patient provider relations representative how to maintain a safe environment during visitationtimes (notify nurse prior to leaving bedside) 25. Consider appropriateness of medical or non-biomedical engineering technician 26. Set up voiding schedule as appropriate (every 2 hours) Outcome: Progressing Note: Evaluation of progress towards goal: Patient remains fall free at this time. Fall precautionsin place. [id number] Emergency department Note* Michelle De La O RN - 01/17/2024 3:02 PM EDT Bed: 34 Expected date: Expected time: Means of arrival: Comments: B1 [place]-- pt still in room, should be headed up shortly [facility]06-05-2024 Emergency department Note* Vivek Harrison RN - 01/17/2024 3:02 PM EDT Bed: 33 Expected date: Expected time: Means of arrival: Comments: T4 [facility]06-05-2024 Emergency department Note* Michelle De La O [...] Expected date: Expected time: Means of arrival: [facility] Comments: 53 YO M [place] transfer Luis Ruth Eric Carlo 53 yrs M (1970) [place] [facility] tripped over dog has non displaced hip fracture Dr Jenkins wants to plan surgery today, Dr Wahl ED med control updated on patient also Palacios placed with 2L output Dilaudid given 121/91 80 HR 99%RA RR 16 EMS 82 HR 96%RA 127/87 ETA 15 min documented in this encounterBrattleboro Memorial HospitalInertia Beverage Group [id number] History and physical note* Stephen Hannah MD - 01/17/2024 11:03 AM EDT Principal Problem: Closed fracture of right hip, initial encounter ([facility]) CHIEF COMPLAINT: Right hip pain SUBJECTIVE: Patient is a 53-year-old male with known Hx/o DM2, HTN, HLD, COPD, Chronic pain disorder, Fibromyalgia, GERD/Esophagitis, Colon cancer s/p sigmoid colectomy, Liver cirrhosis secondary to hepatitis C,Chronic thrombocytopenia, cervical radiculopathy related to C5-C7 herniated disc presents with mechanical fall and right hip pain initially to [facility] and transferred to [facility]. Patient awake oriented x3 does not be [...] Chronic cough Chronic pain disorder Colon cancer ([facility]) Colon cancer ([facility]) Depression Diabetes mellitus type 2, controlled ([facility]) Fibromyalgia, primary GERD (gastroesophageal reflux disease) Hyperlipidemia Hypertension Insulin-treated type 2 diabetes mellitus ([facility]) Joint pain Kidney stones Liver disease Low back pain Neck pain Obesity Osteoarthritis Visual impairment Hx/o Hepatitis-C previously treated in 2017. Cervical radiculopathy related to herniated disc C5-7. PAST SURGICAL HISTORY: Past Surgical History: Procedure Laterality Date BACK SURGERY COLON SURGERY resection, 2018, [facility]IN[facility] REPAIR HERNIA VENTRAL N/A 10/27/2021 Performed by Ridge Cedillo MD at [facility] DENT[facility] SURGERY pt had all teeth removed [...] fall and right hip pain initially to [facility] and transferred to [facility]. 1. Acute nondisplaced intertrochanteric right hip fracture [...] CTP class A, MELD score 7, per [place] score has only 0.6%30 day mortality risk, [...] This note was completed using a voice manager emergency department system. Every effort was made to ensure accuracy. However, inadvertent computerized manager emergency department errors may be present. [employer] Work Phone: [phone]) 789-805206-05-2024 Consult note* Ang Figueroa MD - 01/17/2024 10:58 AM EDT Images from the original note were not included. Chief complaint: right hip pain HPI: Ruth Smith is a 53 y.o. male presents to [facility] c/o right hip pain after a fall. [...] at outside hospital and [facility]. Patient has no other complaints [...] Chronic cough Chronic pain disorder Colon cancer ([facility]) Colon cancer ([facility]) Depression Diabetes mellitus type 2, controlled ([facility]) Fibromyalgia, primary GERD (gastroesophageal reflux disease) Hyperlipidemia Hypertension Insulin-treated type 2 diabetes mellitus ([facility]) Joint pain Kidney stones Liver disease Low back pain Neck pain Obesity Osteoarthritis Visual impairment Past Surgical History: Procedure Laterality Date BACK SURGERY COLON SURGERY resection, 2018, [facility] DAVINCI REPAIR HERNIA VENTRAL N/A 10/27/2021 Performed by Ridge Cedillo MD at [facility] pt had all teeth [...] contact ortho hot pager for any questions/concerns [phone] LUIS MCCARTHY PA-C 01/17/24 1112 I, ANG FIGUEROA MD, personally performed the face to face diagnostic evaluation on this patient. My findings are as follows: Patient seen evaluated in the emergency department. He was transferred from [place] for orthopedic care to [place]. He had a mechanical fall resulting in [...] for the medical standpoint. Ang Figueroa MD. [facility]06-05-2024 Progress note* Situational Awareness - Jeff Martin MD - 01/17/2024 10:57 AM EDT ED called Report to [facility] for Admission Pt transferred to for Ortho, morbid obesity, fall with hip fracture requiring OR, plan for tomorrow. Background HLD, IDDM2. No h/o CAD. Reported no other hemodynamic or acute medical concerns at this time. JEFF MARTIN MD [employer] Work Phone: [phone] Emergency department Note* Coral Sanford RN - 01/17/2024 10:38 AM EDT Per manav [place], pt will go to surgery 01/17. [facility]06-05-2024 Emergency department Note* Vivek Harrison RN - 01/17/2024 10:01 AM EDT Bed: B1 Expected date: Expected time: [facility] Comments: 53 YO M [place] [facility] Ruth Smith 53 yrs M (1970) [place] [facility] tripped over dog has non displaced hip fracture Dr Jenkins wants to plan surgery today, Dr Wahl ED med control updated on patient also Palacios placed with 2L output Dilaudid given 121/91 80 HR 99%RA RR 16 EMS 82 HR 96%RA 127/87 ETA 15 min eblizz [id number] Evaluation note* Encounter Date Diagnosis Assessment Notes Treatment Notes Treatment Clinical Notes Aug, Irritable bowel syndrome with diarrhea (ICD-10 - K58.0) [facility] Other 12-28-2023 Evaluation note* Encounter Date Diagnosis Assessment Notes Treatment Notes Treatment Clinical Notes Jul, GERD (gastroesophageal reflux disease) (ICD-10 - K21.9) [facility] Other 10-30-2023 Evaluation note* Encounter Date Diagnosis Assessment Notes Treatment Notes Treatment Clinical Notes May, Irritable bowel syndrome with diarrhea (ICD-10 - K58.0) [facility] Other 09-19-2023 Evaluation note* Encounter Date Diagnosis Assessment Notes Treatment Notes Treatment Clinical Notes Apr, GERD (gastroesophageal reflux disease) (ICD-10 - K21.9) [facility] Other 08-08-2023 Procedure [facility]07-19-2023 Evaluation note* Encounter Date Diagnosis Assessment [...] Records release for blood work from PCP. [facility] Other 01-11-2023 Evaluation note* Encounter Date Diagnosis [...] educated on the risks and benefits of jail opioid use. Percocet was refilled today, opioid [...] future. Aug, Other UDS performe d through [facility] today, will await confirmatory results. [facility] Other 01-06-2023 Evaluation note* Encounter Date Diagnosis [...] (ICD-10 - G89.29) Continue medications as prescribed [facility] Other 12-[facility]* Encounter Date Diagnosis Assessment [...] educated on the risks and benefits of jail opioid use. Percocet was refilled today, opioid risk assessment was done as well as pill count. Patient is compliant with opioid medication. The patient denies any opioid related side effects. [facility] Other 11-15-2022 Evaluation note* Encounter Date Diagnosis [...] a RFA if applicable under fluoroscopic guidance. 15 Jun, 2022 Neuropathy (ICD-10 - G62.9) Continue taking Gabapentin as prescribed. Jun, Chronic pain (ICD-10 - G89.29) Continue medications as prescribed [facility] Other 10-19-2022 [facility] Evaluation note* Encounter Date Diagnosis Assessment [...] educated on the risks and benefits of jail opioid use. Percocet was refilled today, opioid risk assessment was done as well as pill count. Patient is compliant with opioid medication. The patient denies any opioid related side effects. [facility] Other 09-14-2022 Evaluation note* Encounter Date Diagnosis [...] G89.29) I recommend patient increase Gabapentin to [facility] Other 08-18-2022 Evaluation note* Encounter Date Diagnosis [...] negative findings were considered in medical decision-making. 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 As such I [...] (degenerative disc disease), lumbosacral (ICD-10 - M51.37) [facility] Other evaluation noteNo InformationNortSelect Specialty Hospital [facility] PinoyTravel Other Evaluation noteNort CAL - [employer] Other Evaluation noteNo assessment information available [facility] Work Phone: Evaluation note* Diagnosis Onset Date Resolution Status Disorder of intervertebral disc at C5-C6 level acute [facility] Work Phone: Evaluation note* Diagnosis Onset Date Resolution Status Arthropathy of both shoulders acute Disorder of intervertebral disc at C5-C6 level acute Cirrhosis acute Diarrhea acute GERD (gastroesophageal reflux disease) acute IBS (irritable bowel syndrome) acute [facility] Work Phone: Evaluation note* Diagnosis Onset Date Resolution Status Cirrhosis acute GERD (gastroesophageal reflux disease) acute Irritable bowel syndrome with diarrhea acute [facility] Work Phone: Evaluation note* Diagnosis Paresthesia- Primary Disturbance of skin sensation [facility] Diagnosis Lumbar radiculopathy, chronic [facility] Diagnosis Lumbar radiculopathy, chronic [facility] Diagnosis Lumbar radiculopathy, chronic [facility]* Diagnosis Lumbar radiculopathy, chronic- Primary History of lumbar surgery Lumbar spondylosis Lumbosacral spondylosis without myelopathy Bilateral hand pain [facility]* Diagnosis Closed displaced intertrochanteric fracture of right femur ([facility])- Primary Closed displaced intertrochanteric fracture of right femur with routine healing, subsequent encounter- Primary Closed displaced intertrochanteric fracture of right femur, initial encounter ([facility]) [facility]* Diagnosis Closed fracture of right hip, initial encounter ([facility])- Primary Closed fracture of right hip, initial encounter ([facility]) Closed displaced intertrochanteric fracture of right femur ([facility]) [facility]* Diagnosis Closed displaced intertrochanteric fracture of right femur, sequela- Primary Closed displaced subtrochanteric fracture of right femur, initial encounter ([facility]) [facility]* Diagnosis Closed fracture of right hip, initial encounter ([facility])- Primary Closed fracture of right hip, initial encounter ([facility]) Periprosthetic fracture of hip, sequela Periprosthetic fracture of hip, subsequent encounter Myah-prosthetic fracture around prosthetic hip Myah-prosthetic fracture around prosthetic joint [facility]* Diagnosis Closed fracture of right hip, initial encounter ([facility]) [facility]* Diagnosis Closed fracture of right hip, initial encounter ([facility]) [facility]* Diagnosis Localized swelling of right lower extremity- Primary Periprosthetic fracture of hip, subsequent encounter [facility]* Diagnosis Periprosthetic fracture of hip, subsequent encounter- Primary [facility]* Diagnosis Closed displaced intertrochanteric fracture of right femur with routine healing, subsequent encounter- Primary Trochanteric bursitis of right hip [facility]* Diagnosis Closed fracture of right hip, initial encounter ([facility]) [facility] Diagnosis Closed fracture of right hip, initial encounter ([facility]) [facility] Diagnosis Disorder of sacrum- Primary Disorders of sacrum [facility] Diagnosis Closed displaced intertrochanteric fracture of right femur with routine healing, subsequent encounter- Primary [facility]* Diagnosis Right knee pain, unspecified chronicity- Primary documented [facility]* Diagnosis Right knee pain, unspecified chronicity- Primary documented [facility]* Diagnosis Back pain, unspecified back location, unspecified back pain laterality, unspecified chronicity- Primary [facility]* Diagnosis Closed displaced intertrochanteric fracture of right femur with routine healing, subsequent encounter- Primary documented [facility] this [facility]* Diagnosis Lumbar radiculopathy, chronic- Primary Left cervical radiculopathy Bilateral hand pain Bilateral hand numbness Disturbance of skin sensation Lumbar spondylosis Lumbosacral spondylosis without myelopathy Cervical spondylosis Cervical spondylosis without myelopathy Chronic midline low back pain without sciatica History of lumbar surgery Anxiety Anxiety state, unspecified documented [facility] this [facility]* Diagnosis Lumbar radiculopathy, chronic [facility]* Diagnosis Trochanteric bursitis of right hip- Primary [facility]* Diagnosis Acute right-sided low back pain with right-sided sciatica- Primary [facility]* Diagnosis Radicular syndrome of right leg- Primary Thoracic or lumbosacral neuritis or radiculitis, unspecified History of lumbar laminectomy Diabetic peripheral neuropathy (HCC) Type II or unspecified type diabetes mellitus with neurological manifestations, not stated as uncontrolled History of total right hip replacement Thrombocytopenia Thrombocytopenia, unspecified [facility]* Diagnosis Malignant neoplasm of colon, unspecified part of colon (HCC)- Primary Thrombocytopenia Thrombocytopenia, unspecified [facility]* Diagnosis Radicular syndrome of right leg- [...] stated as uncontrolled [facility]* Diagnosis Benign prostatic hyperplasia, unspecified whether lower urinary tract symptoms present- Primary Difficulty urinating Other symptoms involving urinary system [facility]* Diagnosis Onset Date Resolution Status Admit Date Cirrhosis acute December 05 1:16pm Esophageal varices acute December 05, 2024 1:16pm GERD (gastroesophageal reflu x disease) acute December 05, 2024 1:16pm Hepatic encephalopathy acute Ap 2024 1:16pm Irritable bowel syndrome wit h diarrhea acute December 05, 2024 1:16pm Personal history of colon cancer acu te December 05, 2024 1:16pm [facility] Work Phone: Evaluation note* Diagnosis Radiculopathy, lumbar region- Primary Thoracic or lumbosacral neuritis or radiculitis, unspecified Diabetic peripheral neuropathy (HCC) Type II or unspecified type diabetes mellitus with neurological manifestations, not stated as uncontrolled Thrombocytopenia Thrombocytopenia, unspecified History of total right hip replacement H/O lumbar discectomy Personal history of surgery to other organs Chronic pain syndrome [facility]* Diagnosis Benign prostatic hyperplasia, unspecified whether lower urinary tract symptoms present- Primary Difficulty urinating Other symptoms involving urinary system Difficulty urinating- Primary Other symptoms involving urinary system Preop examination- Primary Unspecified pre-operative examination Hypertension, unspecified type Type 2 diabetes mellitus with other circulatory complication, with long-term current use of insulin ([facility]) Preop examination Unspecified pre-operative examination Hypertension, unspecified type Type 2 diabetes mellitus with other circulatory complication, with long-term current use of insulin ([facility]) Difficulty urinating Other symptoms involving urinary system [facility]* Diagnosis Thrombocytopenia- Primary Thrombocytopenia, unspecified Malignant neoplasm of colon, unspecified part of colon (HCC) Elevated carcinoembryonic antigen (CEA) Elevated carcinoembryonic antigen [CEA] documented in this encounter [facility]* Diagnosis Radiculopathy, lumbar region Thoracic or lumbosacral neuritis or radiculitis, unspecified Diabetic peripheral neuropathy (HCC) Type II or unspecified type diabetes mellitus with neurological manifestations, not stated as uncontrolled Thrombocytopenia Thrombocytopenia, unspecified History of total right hip replacement H/O lumbar discectomy Personal history of surgery to other organs Polyneuropathy Unspecified hereditary and idiopathic peripheral neuropathy documented [facility]* Diagnosis Benign prostatic hyperplasia, unspecified whether lower urinary tract symptoms present- Primary Difficulty urinating Other symptoms involving urinary system Difficulty urinating- Primary Other symptoms involving urinary system [facility]* Diagnosis Radiculopathy, lumbar region- Primary Thoracic or lumbosacral neuritis or radiculitis, unspecified Diabetic peripheral neuropathy (HCC) Type II or unspecified type diabetes mellitus with neurological manifestations, not stated as uncontrolled History of total right hip replacement H/O lumbar discectomy Personal history of surgery to other organs Polyneuropathy Unspecified hereditary and idiopathic peripheral neuropathy documented in this encounter [facility] general Narrative - Reported* Type Description Date [...] colectomy Surgical History Incisionall hernia repair w/ KEERTHI Morrison 05/13/2019 Surgical History Rt. inguinal hernia repair w/Dr Kelvin Morrison 06/14/19 Hospitalization History See Sx Hx [facility] Other History general Narrative - ReportedNort CAL - [employer] Other History general Narrative - Reported* Type Description [...] colectomy Surgical History Incisionall hernia repair w/ KEERTHI Morrison 05/13/2019 Surgical History Rt. inguinal hernia repair w/Dr Kelvin Morrison 06/14/19 Surgical History hernia repair Hospitalization History See Sdaniella Hx [facility] Other Hospital Discharge instructions Additional Instructions DISCHARGE [...] problems. -Follow up with PCP. -Office number [phone].[facility] Work Phone: Hospital Discharge instructionsAmbulatory Orders* Referral to Orthopedic Surgery Location: None Selected [facility] Work Phone: InstructionsNot on filedocumented in this [...] be sent through Care Everywhere. * Cystoscopy (Cook Islander) documented in this encounterProMediFeidee SystemReason for visit NarrativeONE WEEK FOLLOW UP AFTER PROCEDURE, Patient consents to be evaluated and treated via telemedicine, risks benefits and alternatives explained., Patient at home virtually seen from office.Network Chemistry Other Reason for visit Narrative* Other Medical (Routine) - Closed Specialty Diagnoses / Procedures Referred By Pamela t Referred To Contact Neurology Diagnoses Radiculopathy, cervical region Pain in right hand Pain in left hand Anesthesia of skin Spondylosis without myelopathy or radiculopathy, cervical region Procedures AR NEEDLE EMG EA EXTREMTY W/PARASPINL AREA COMPLETE AR NERVE CONDUCTION STUDIES 9-10 STUDIES Marcell Badillo MD [address] [place] [address] Phone: tel: fax: Virgil Ashford MD [address] [place] [address] Phone: tel: fax: Referral ID Status Reason Start Date Expiration Date V isits Requested Visits Authorized [id number] Closed Perform Procedure 07/19/2024 01/15/2025 1 1 [...] Recorded Date/ Time Advance Directives Yes November 30 024 10:37am Date Activated Date Inactivated Comments 02/03/2024 3:30 PM 02/09/2024 3:10 PM Advance Directive Response Recorded Date/ Time Advance Directives Yes November 30 9:37am Date Activated Date Inactivated Comments 02/03/2024 [...] Documents on File Type Date Recorded 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 Advance Directive(s) 04/06/2018 2:06 PM Documents on File Type Date Recorded 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 Advance Directive(s) 04/06/2018 2:06 PM Chief Complaint and Reason for Visit Chief Complaint Admit Date 6 month f/u-cirrhosis/ibs December 05 1:16pm k74.60 December 12, 2024 5:30pm Reason for Visit Admit Date Cirrhosis December 05, 2024 1:1 6pm Esophageal varices December 05, 2024 1:1 6pm GERD (gastroesophageal reflux disease) A pri 2024 1:16pm Hepatic encephalopathy December 05, 2024 1:16pm Irritable bowel syndrome with diarrhea A [facility] 2024 1:16pm Personal history of colon cancer [...] :27pm M54.16 M47.816 M54.50 G89.29 Z98.890 Dario coates 2024 1:46pm Reason for Visit Admit Date [...] room: INJECTION BLOCK SACROILIAC JOINT RIGHT Eddie Torre Raymond, BOATS RENTER-MANAGER [employer] [address] [place] [address] Referral ID Status Reason Start Date Expiration Date V isits Requested Visits Authorized [id number] Pending Review 04/02/2024 04/02/2025 1 1 Specialty Diagnoses / Procedures Referred By Contac t Referred To Contact Rehabilitation Diagnoses Closed displaced intertrochanteric fracture of right femur with routine healing, subsequent encounter Rehana Retana PA-C [address] [place] [address] Referral ID Status Reason Start Date Expiration Date Visits Requested Visits Authorized [id number] Pending Review Specialty Services Required 03/14/2024 09/14/2024 1 1 Specialty Diagnoses / Procedures Referred By Contac t Referred To Contact Diagnoses Localized swelling of right lower extremity Procedures Vas venous duplex lwr single right Tom Marquez PA-C [address] [place] [address] Referral ID Status Reason Start Date Expiration Date V isits Requested Visits Authorized [id number] Pending Review 02/22/2024 02/21/2025 1 1 Specialty Diagnoses / Procedures Referred By Contac t Referred To Contact Procedures Discharge Follow-Up Leatha Mcguire MD [address] [place] [address] Referral ID Status Reason Start Date Expiration Date V isits Requested Visits Authorized [id number] Pending Review 02/03/2024 02/02/2025 1 1 Specialty Diagnoses / Procedures Referred By Contac t Referred To Contact Procedures Adult diet Leatha Mcguire MD [address] [place] [address] Referral ID Status Reason Start Date Expiration Date V isits Requested Visits Authorized [id number] Pending Review 02/03/2024 02/02/2025 1 1 Specialty Diagnoses / Procedures Referred By Contac t Referred To Contact Diagnoses Periprosthetic fracture of hip, subsequent encounter Procedures Follow-up with primary care provider Leatha Mcguire MD [address] [place] [address] Referral ID Status Reason Start Date Expiration Date V isits Requested Visits Authorized [id number] Pending Review 02/03/2024 02/02/2025 1 1 Specialty Diagnoses / Procedures Referred By Contac t Referred To Contact Behavioral Health Diagnoses Periprosthetic fracture of hip, subsequent encounter Leatha Mcguire MD [address] [place] [address] Referral ID Status Reason Start Date Expiration Date Visits Requested Visits Authorized [id number] Pending Review Specialty Services Required 02/03/2024 02/02/2025 1 1 Specialty Diagnoses / Procedures Referred By Contac t Referred To Contact Occupational Therapy Diagnoses Periprosthetic fracture of hip, subsequent encounter Leatha Mcguire MD [address] [place] [address] Referral ID Status Reason Start Date Expiration Date Visits Requested Visits Authorized [id number] Pending Review Specialty Services Required 02/03/2024 08/04/2024 12 12 Specialty Diagnoses / Procedures Referred By Contac t Referred To Contact Rehabilitation Diagnoses Periprosthetic fracture of hip, subsequent encounter Leatha Mcguire MD [address] [place] [address] Referral ID Status Reason Start Date Expiration Date Visits Requested Visits Authorized [id number] Pending Review Specialty Services Required 02/03/2024 08/04/2024 12 12 Specialty Diagnoses / Procedures Referred By Contac t Referred To Contact Diagnoses Closed fracture of right hip, initial encounter ([facility]) Periprosthetic fracture of hip, sequela Procedures Follow-up with primary care provider Leatha Mcguire MD [address] [place] [address] Referral ID Status Reason Start Date Expiration Date V isits Requested Visits Authorized [id number] Pending Review 02/02/2024 02/01/2025 1 1 Specialty Diagnoses / Procedures Referred By Contac t Referred To Contact Procedures Discharge Follow-Up Abad Diallo DO [address] [place] [address] Referral ID Status Reason Start Date Expiration Date V isits Requested Visits Authorized [id number] Pending Review 01/22/2024 01/21/2025 1 1 Specialty Diagnoses / Procedures Referred By Contac t Referred To Contact Diagnoses Closed fracture of right hip, initial encounter ([facility]) Procedures Follow-up with primary care provider Abad Diallo DO [address] [place] [address] Referral ID Status Reason Start Date Expiration Date V isits Requested Visits Authorized [id number] Pending Review 01/22/2024 01/21/2025 1 1 Reason Evaluate and Treat Diagnosis 1 Idiopathic periphera l neuropathy (G60.9) Referral Organization [facility] Referring Provider First Name Bird Referring Provider Last Name Yany Referring Provider Specialty Neurosurger y Referred Organization [facility] Referred Provider Erick Naylor Referred Address [address] [place], [place],[address] Referred Provider Specialty Neurology Referral Priority Routine Reason BLE EMG Diagnosis 1 Idiopathic periphera l neuropathy (G60.9) Referral Organization [facility] Referring Provider First Name Bird Referring Provider Last Name Yany Referring Provider Specialty Neurosurger y Referred Organization [facility] Referred Provider Virgil Ashford Referred Address [address] [place], [place],[address] Referred Provider Specialty Neurology Referral Priority Routine [...] section and content) DATE CREATED AUTHOR 03/14/2018 [facility] DATE CREATED AUTHOR AUTHOR'S ORGANIZ ATION 05/29/2018 [facility] DATE CREATED AUTHOR AUTHOR'S ORGANIZ ATION 05/20/2020 [facility] DATE CREATED AUTHOR AUTHOR'S ORGANIZ ATION 02/05/2021 [facility] DATE CREATED AUTHOR AUTHOR'S ORGANIZ ATION 07/28/2024 [facility] DATE CREATED AUTHOR AUTHOR'S ORGANIZ ATION 08/07/2024 [facility] DATE CREATED AUTHOR AUTHOR'S ORGANIZ ATION 11/09/2024 [facility] DATE CREATED AUTHOR AUTHOR'S ORGANIZ ATION 01/11/2025 [facility] DATE CREATED AUTHOR AUTHOR'S ORGANIZ ATION 03/23/2025 [facility] DATE CREATED AUTHOR AUTHOR'S ORGANIZ ATION 03/24/2025 [facility] DATE CREATED AUTHOR AUTHOR'S ORGANIZ ATION 03/25/2025 [facility] DATE CREATED AUTHOR AUTHOR'S ORGANIZ ATION 04/03/2025 [facility] REASON FOR VISIT (unrecogniz ed [...] Closed fracture of right hip, initial encounter ([facility]) Jeff Martin MD [address] [place] [address] Referral ID Status Reason Start Date Expiration Date Visits Re quested Visits Authorized [id number] 1 1 Reason Comments Post-op S/p TFNA Right IT Hi p Fx,S/p fall has new fx around nail, r femur fall Post-op Reason Comments Fall Evaluation of Abnormal Diagnostic Test Specialty Diagnoses / Procedures Referred By Contac t Referred To Contact Diagnoses Closed fracture of right hip, initial encounter ([facility]) Leatha Mcguire MD [address] [place] [address] Referral ID Status Reason Start Date Expiration Date Visits Re quested Visits Authorized [id number] 1 1 Reason Comments Med Refill Reason [...] sciatica Procedures CONSULT TO PAIN MGT OFFICE/OUTPATIENT [facility] MDM 60 MINUTES Martha Faulkner APRN.MANAGER [employer] [address] [place] [address] Phone: tel: fax: Referral ID Status Reason Start Date Expiration Date V isits Requested Visits Authorized [id number] Closed PCP Requested Referral 11/08/2024 02/06/2025 1 1 Reason Comments Colon Cancer Specialty Diagnoses / Procedures Referred By Contac t Referred To Contact Hematology Diagnoses Thrombocytopenia Procedures CONSULT TO HEMATOLOGY OFFICE/OUTPATIENT [facility] MDM 60 MINUTES Abrahan Rinaldi MD [address] [place] [address] Phone: tel: fax: Referral ID Status Reason Start Date Expiration Date V isits Requested Visits Authorized [id number] Closed PCP Requested Referral 11/22/2024 11/22/2025 1 1 Reason Comments Schedule Injection Reason Comments Difficulty Urinating Specialty Diagnoses / Procedures Referred By Contac t Referred To Contact Urology Diagnoses Difficulty urinating Francisca Wade MD [address] [facility] [place] [place] [address] Phone: tel: fax: [facility] [address] [place] [address] Phone: tel: fax: Referral ID Status Reason Start Date Expiration Date Visits Requested Visits Authorized [id number] Pending Review Specialty Services Required 10/11/2024 10/11/2025 1 1 Reason Comments Pain Procedure Response & follow up Righ t L5-S1 Transforaminal Epidural Steroid injection # 1 Reason Comments Back Pain Down right leg Reason Comments Pain Low back Reason Comments Follow-up Reason Comments Back Pain Lower Extremity Pain Care Teams (unrecognized sec tion and content) [...] June 05, 2024 End: June 05, 2024 Sack Lifter Relationship Specialty Start Date End Date Unallocated, Diana Matos MD [address] [place] [address] PCP - General Family Medicine 12/12/23 Diane Mcgrath NP [address] [place] [address] Referring Physician Family Medicine 12/12/23 Marcell Badillo MD [facility] [place] [address] Referring Physician Family Medicine 07/19/24 Sack Lifter Relationship Specialty Start Date End Date Unallocated, Diana Matos MD [address] [place] [address] PCP - General Family Medicine 12/12/23 Diane Mcgrath NP [address] [place] [address] Referring Physician Family Medicine 12/12/23 Marcell Badillo MD [address] [place] [address] Referring Physician Family Medicine 07/19/24 Sack Lifter Relationship Specialty Start Date End Date Francisca Wade MD [address] [place] [address] PCP - General Internal Medicine 07/18/24 Sack Lifter Relationship Specialty Start Date End Date Francisca Wade MD [address] [place] [address] PCP - General Internal Medicine 07/18/24 Team Status: Active Member Role Status Dates Francisca Wade MD Primary Care Provider Active Team Status: Inactive Member Role Status Dates Marcell Badillo , HANDBAG FRAMES INSPECTOR-C Attending Provider Active S tart: August 27, 2024 End: August 27, 2024 Francisca Wade MD Primary Care Provider Active S tart: August 27, 2024 End: August 27, 2024 Sack Lifter Relationship Specialty Start Date End Date Francisca Wade MD [address] [place] [address] PCP - General Internal Medicine 07/18/24 Sack Lifter Relationship Specialty Start Date End Date Francisca Wade MD [address] [place] [address] PCP - General Internal Medicine 07/18/24 Sack Lifter Relationship Specialty Start Date End Date Francisca Wade MD [address] [place] [address] PCP - General Internal Medicine 07/18/24 Sack Lifter Relationship Specialty Start Date End Date Jd Du PA-C [address] [place] [address] PCP - General Physician Agricultural Extension Agent 07/31/17 Sack Lifter Relationship Specialty Start Date End Date Jd Du PA-C [address] [place] [address] PCP - General Physician Agricultural Extension Agent 07/31/17 Sack Lifter Relationship Specialty Start Date End Date Jd Du PA-C [address] [place] [address] PCP - General Physician Agricultural Extension Agent 07/31/17 Sack Lifter Relationship Specialty Start Date End Date Jd Du PA-C [address] [place] [address] PCP - General Physician Agricultural Extension Agent 07/31/17 Sack Lifter Relationship Specialty Start Date End Date Jd Du PA-C [address] [place] [address] PCP - General Physician Agricultural Extension Agent 07/31/17 Sack Lifter Relationship Specialty Start Date End Date Jd Du PA-C [address] [place] [address] PCP - General Physician Agricultural Extension Agent 07/31/17 Sack Lifter Relationship Specialty Start Date End Date Jd Du PA-C [address] [place] [address] PCP - General Physician Agricultural Extension Agent 07/31/17 Sack Lifter Relationship Specialty Start Date End Date Jd Du PA-C [address] [place] [address] PCP - General Physician Agricultural Extension Agent 07/31/17 Sack Lifter Relationship Specialty Start Date End Date Jd Du PA-C [address] [place], [place] [address] PCP - General Physician Agricultural Extension Agent 07/31/17 Sack Lifter Relationship Specialty Start Date End Date Eugenio Diane, BOATS RENTER-MANAGEMENT CONSULTING [address] [place] [address] PCP - General 03/14/24 Sack Lifter Relationship Specialty Start Date End Date Diane Mcgrath, BOATS RENTER-MANAGEMENT CONSULTING [address] [place] [address] PCP - General 03/14/24 Sack Lifter Relationship Specialty Start Date End Date Diane Mcgrath, BOATS RENTER-MANAGEMENT CONSULTING [address] [place] [address] PCP - General 03/14/24 Sack Lifter Relationship Specialty Start Date End Date Diane Mcgrath, BOATS RENTER-MANAGEMENT CONSULTING [address] [place] [address] PCP - General 03/14/24 Sack Lifter Relationship Specialty Start Date End Date Diane Mcgrath, BOATS RENTER-MANAGEMENT CONSULTING [address] [place] [address] PCP - General 03/14/24 Sack Lifter Relationship Specialty Start Date End Date Diane Mcgrath, BOATS RENTER-MANAGEMENT CONSULTING [address] [place], [place] [address] PCP - General Family Medicine 06/07/24 Sack Lifter Relationship Specialty Start Date End Date Diane Mcgrath, BOATS RENTER-MANAGEMENT CONSULTING [address] [place], [place] [address] PCP - General Family Medicine 06/07/24 Sack Lifter Relationship Specialty Start Date End Date Francisca Wade MD [address] [place] [address] PCP - General Internal Medicine 07/18/24 Sack Lifter Relationship Specialty Start Date End Date Francisca Wade MD [address], [place] [address] PCP - General Internal Medicine 07/18/24 Sack Lifter Relationship Specialty Start Date End Date Francisca Wade MD [address], [place] [address] PCP - General Internal Medicine 07/18/24 Sack Lifter Relationship Specialty Start Date End Date Jd Du PA-C [address] [facility] [place] [address] PCP - General Internal Medicine 04/09/18 Jun Arriola DO Physician Hematology 03/26/18 Lorie Ozuna, ELIAS [address] [facility] [place] [address] Outside Plant Field Engineer 03/26/18 Gianna Hodge APRN.MANAGER [employer] [address] [facility] [place] [address] Nurse Practitioner Hematology/Oncology 03/26/18 Sack Lifter Relationship Specialty Start Date End Date Jd Du PA-C [address] [facility] [place] [address] PCP - General Internal Medicine 04/09/18 Jun Arriola DO Physician Hematology 03/26/18 Lorie Ozuna RN [address] [facility] [place] [address] Outside Plant Field Engineer 03/26/18 Gianna Hodge, BOATS RENTER.MANAGER [employer] [address] [facility] [place] [address] Nurse Practitioner Hematology/Oncology 03/26/18 Sack Lifter Relationship Specialty Start Date End Date Jd Du PA-C [address] [facility] [place] [place] [address] PCP - General Internal Medicine 04/09/18 Jun Arriola DO Physician Hematology 03/26/18 Lorie Ozuna RN [address] [facility] [place] [address] Outside Plant Field Engineer 03/26/18 Gianna Hodge, BOATS RENTER.MANAGER [employer] [address] [facility] [place] [address] Nurse Practitioner Hematology/Oncology 03/26/18 Sack Lifter Relationship Specialty Start Date End Date Jd Du PA-C [address] [facility] [place] [address] PCP - General Internal Medicine 04/09/18 Jun Arriola DO Physician Hematology 03/26/18 Lorie Ozuna RN [address] [facility] [place] [address] Outside Plant Field Engineer 03/26/18 Gianna Hodge, BOATS RENTER.MANAGER [employer] [address] [facility] [place] [place] [address] Nurse Practitioner Hematology/Oncology 03/26/18 Sack Lifter Relationship Specialty Start Date End Date Jd Du PA-C [address] [facility] [place] [address] PCP - General Internal Medicine 04/09/18 Jun Arriola DO Physician Hematology 03/26/18 Lorie Ozuna RN [address] [facility] [place] [address] Outside Plant Field Engineer 03/26/18 Gianna Hodge, BOATS RENTER.MANAGER [employer] [address] [place] [address] [place] [address] Nurse Practitioner Hematology/Oncology 03/26/18 Sack Lifter Relationship Specialty Start Date End Date Jd Du PA-C [address] [place] [address] [place] [address] PCP - General Internal Medicine 04/09/18 Jun Arriola DO Physician Hematology 03/26/18 Lorie Ozuna RN [address] [facility] [place] [place] [address] Outside Plant Field Engineer 03/26/18 Gianna Hodge, BOATS RENTER.MANAGER [employer] [address] [facility] [place] [address] Nurse Practitioner Hematology/Oncology 03/26/18 Sack Lifter Relationship Specialty Start Date End Date Francisca Wade MD [address] [place] [address] PCP - General Internal Medicine 07/18/24 Team [...] December 12, 2024 End: December 12, 2024 Sack Lifter Relationship Specialty Start Date End Date Francisca Wade MD [address] [place] [address] PCP - General Internal Medicine 12/16/24 Jun Arriola DO Physician Hematology 03/26/18 Lorie Ozuna RN [address] [facility] [facility] [place] [address] Outside Plant Field Engineer 03/26/18 Gianna Hodge APRN.CNP [address] [place] [address] Nurse Practitioner Hematology/Oncology 03/26/18 Sack Lifter Relationship Specialty Start Date End Date Francisca Wade MD [address] [place] [address] PCP - General Internal Medicine 12/16/24 Jun Arriola DO Physician Hematology 03/26/18 Lorie Ozuna RN [address] [facility] [place] [place] [address] Outside Plant Field Engineer 03/26/18 Gianna Hodge, JOHN.MANAGER [employer] [address] [place] [address] [place] [address] Nurse Practitioner Hematology/Oncology 03/26/18 Sack Lifter Relationship Specialty Start Date End Date Francisca Wade MD [address] [place] [address] PCP - General Internal Medicine 12/16/24 Jun Arriola DO Physician Hematology 03/26/18 Lorie Ozuna RN [address] [facility] [place] [address] Outside Plant Field Engineer 03/26/18 Gianna Hodge, BOATS RENTER.MANAGER [employer] [address] [place] [address] [place] [address] Nurse Practitioner Hematology/Oncology 03/26/18 Sack Lifter Relationship Specialty Start Date End Date Francisca Wade MD [address] [place] [address] PCP - General Internal Medicine 07/18/24 Sack Lifter Relationship Specialty Start Date End Date Francisca Wade MD [address] [place] [address] PCP - General Internal Medicine 07/18/24 Sack Lifter Relationship Specialty Start Date End Date Francisca Wade MD [address] [place] [address] PCP - General Internal Medicine 12/16/24 Jun Arriola DO Physician Hematology 03/26/18 Lorie Ozuna, ELIAS [address] [place] [address] Outside Plant Field Engineer 03/26/18 Gianna Hodge, JOHN.MANAGER [employer] [address] [facility] [place] [place] [address] Nurse Practitioner Hematology/Oncology 03/26/18 Sack Lifter Relationship Specialty Start Date End Date Francisca Wade MD [address] [place] [address] PCP - General Internal Medicine 12/16/24 Jun Arriola DO Physician Hematology 03/26/18 Lorie Ozuna RN [address] [place] [address] Outside Plant Field Engineer 03/26/18 Gianna Hodge, BOATS RENTER.MANAGER [employer] [address] [facility] [place] [address] Nurse Practitioner Hematology/Oncology 03/26/18 Sack Lifter Relationship Specialty Start Date End Date Francisca Wade MD [address], [place] [address] PCP - General Internal Medicine 12/16/24 Jun Arriola DO Physician Hematology 03/26/18 Lorie Ozuna, RN [address] [facility] [place] [address] Outside Plant Field Engineer 03/26/18 Gianna Hodge, BOATS RENTER.MANAGER [employer] [address] [facility] [place] [address] Nurse Practitioner Hematology/Oncology 03/26/18 Sack Lifter Relationship Specialty Start Date End Date Francisca Wade MD [address] [place] [address] PCP - General Internal Medicine 12/16/24 Jun Arriola DO Physician Hematology 03/26/18 Lorie Ozuna RN [address] [facility] [place] [address] Outside Plant Field Engineer 03/26/18 Gianna Hodge, BOATS RENTER.MANAGER [employer] [address] [place] [address] [place] [address] Nurse Practitioner Hematology/Oncology 03/26/18 Sack Lifter Relationship Specialty Start Date End Date Francisca Wade MD [address] [place] [address] PCP - General Internal Medicine 12/16/24 Jun Arriola DO Physician Hematology 03/26/18 Lorie Ozuna RN [address] [facility] [place] [address] Outside Plant Field Engineer 03/26/18 Gianna Hodge APRN.MANAGER [employer] [address] [facility] [place] [address] Nurse Practitioner Hematology/Oncology 03/26/18 Sack Lifter Relationship Specialty Start Date End Date Francisca Wade MD [address] [place] [address] PCP - General Internal Medicine 12/16/24 Jun Arriola DO Physician Hematology 03/26/18 Lorie Ozuna RN [address] [facility] [place] [address] Outside Plant Field Engineer 03/26/18 Gianna Hodge, JOHN.MANAGER [employer] [address] [facility] [place] [address] Nurse Practitioner Hematology/Oncology 03/26/18 Goals (unrecognized section [...] RN) 0836 (Given - Provider: Miranda Dudley, RN) enoxaparin (LOVENOX) syringe 40 mg 40 [...] 0836 (Given - Provider: Miranda Dudley, ELIAS) gabapentin (NEURONTIN) capsule 800 mg 800 mg, [...] Chloe Vela RN)1757 (Given - Provider: Chloe Vela, ELIAS)2215 (Given - Provider: Santi Parks, RN) 0836 (Given - Provider: Miranda Dudley, [...] Reason: Order parameters not met - Comment: [phone] (Not Given - Provider: Miranda Dudley RN - Reason: Order parameters not met - Comment: [phone] (Not Given - Provider: Miranda Dudley RN - Reason: Order parameters not met - Comment: [id number]) lidocaine (LIDODERM) 5 % 1 patch 1 [...] refused - Comment: Patient wants it later) 210 (Medication Applied - Provider: Santi Parks RN - Comment: upper back) 0905 (Medication Removed - Provider: Miranda Dudley, ELIAS) losartan (COZAAR) tablet 100 mg 100 mg, oral, Daily, First dose on Mon01/19/24 at 0900, Look-alike/sound-alike medication - verify indication for use. 0905 (Given - Provider: George Ha RN) 0925 (Given - Provider: Chloe Vela, ELIAS) 0836 (Given - Provider: Miranda Dudley, ELIAS) nicotine (NICODERM CQ) 14 mg/24 hr 1 patch 1 patch, transdermal, Administer over 24 Hours, Daily, First dose on Mon01/17/24 at 1225, Remove patch prior to MRI procedure as serious coleman may occur- patch may be reapplied. Remove previous patch, if present, before applying new. 0829 (Medication Removed - Provider: George Ha RN)09 (Medication Applied - Provider: George Ha RN) [...] Gonzalez RN) 0539 (Given - Provider: Santi Parks RN) polyethylene glycol (GLYCOLAX) packet 17 g 17 [...] 0836 (Given - Provider: Miranda Dudley, ELIAS) sennosides-docusate sodium (SENOKOT-S) 8.6-50 mg 2 [...] - Reason: Patient/family refused) 0900 (Return to [facility] - Provider: Miranda Dudley RN) tamsulosin (FLOMAX) [...] Look-alike/sound-alike medication - verify indication for use. 2198 (Given - Provider: Virgil Gonzalez RN)7920 (Given - Provider: George Ha RN)1133 (Given - Provider: George Ha RN)1408 (Given - Provider: George Ha RN)1731 (Given - Provider: George Ha RN)2124 (Given - Provider: Virgil Gonzalez, RN) 0028 (Given - Provider: Virgil Gonzalez, RN)0354 (Given - Provider: Virgil Gonzalez, RN)0750 (Given - Provider: Chloe Vela RN)1008 (Given - Provider: Chloe Vela RN)1418 (Given - Provider: Chloe Vela RN)1805 (Given - Provider: Chloe Vela RN)2101 (Given - Provider: Santi Parks RN) 0050 (Given - Provider: Santi Parks RN)0539 [...] Dudley, ELIAS)1420 (Stop Bag - Provider: Miranda Dudley, RN) melatonin (CIRCADIN) tablet 3 mg 3 [...] Chloe Vela, ELIAS)1534 (Given - Provider: Chloe Vela RN)2220 (Given - Provider: Santi Parks RN) 0232 (Given - Provider: Santi Parks RN)0717 (Given - Provider: Miranda Dudley, RN)1135 (Given - Provider: Miranda Dudley, RN)1447 (Given - Provider: Miranda Dudley, RN)1740 (Given - Provider: Miranda Dudley, RN) oxyCODONE [...] Silva, ELIAS) 0821 (Given - Provider: Lian Silva RN) citalopram (CeleXA) tablet 20 mg 20 mg, oral, Daily, First dose on Mon01/29/24 at 1200, Look-alike/sound-alike medication - verify indication for use., Indications: major depressive disorder 0804 (Given - Provider: Antionette Smith, ELIAS) 0839 (Given - Provider: Lian Silva RN) [...] Parks RN) 0521 (Given - Provider: Lacey Singer, ELIAS) 0516 (Given - Provider: Carin Contreras, ELIAS) ergocalciferol (DRISDOL) capsule 50,000 Units 50,000 [...] Antionette Smith RN)2016 (Given - Provider: Lacey Singer, ELIAS) 0520 (Given - Provider: Lacey Singer RN)1444 (Given - Provider: Lian Silva RN)2122 (Given - Provider: Carin Contreras, ELIAS) 0516 (Given - Provider: Carin Contreras, ELIAS)1357 (Given - Provider: Lian Silva RN)2200 (Due) [...] meals, First dose on Mon01/29/24 at 1200, Daytime hyperglycemia dosing. For blood [...] 2300 (Not Given - Provider: Carin Contreras, RN - Reason: Patient/family refused) 230 (Due - Provider: Bertha Avalos [facility]) magnesium oxide (MAGOX) tablet 400 mg [...] for use. 0805 (Given - Provider: Antionette Smith, ELIAS)2015 (Given - Provider: Lacey Singer, ELIAS) 0900 (Hold - Provider: Lian Silva RN - Reason: Medication not available)1219 (Given - Provider: Lian Silva RN)2121 (Given - Provider: Carin Contreras, ELIAS) 08 [...] Carin Contreras RN) 0821 (Given - Provider: Lina Silva RN)1232 (Given - Provider: Lian Silva RN)1700 (Due)0 (Due) tamsulosin (FLOMAX) 24 hr capsule 0.4 mg 0.4 mg, oral, Nightly, First dose on Mon01/29/24 at 2200, Do not crush or chew. 2015 (Given - Provider: Lacey Singer RN) 2121 (Given - Provider: Carin Contreras RN) 2199 (Due) traZODone (DESYREL) tablet 50 mg 50 mg, oral, Nightly, First dose on Mon01/29/24 at 2200, Look-alike/sound-alike medication - verify indication for use. 003 (Given - Provider: Santi Parks RN - Comment: Per pt request)2015 (Given - Provider: Lacey Singer RN) 103 (Given - Provider: Carin Contreras RN - Comment: per patient)2200 (Due) PRN Medication Order 02/01/2024 02/02/2024 02/03/2024 cyclobenzaprine (FLEXERIL) tablet 10 mg 10 mg, oral, 2 times daily PRN, muscle spasms, Starting on 01/29/24 at 1151 0037 (Given - Provider: Santi Parks RN) 0836 (Given - Provider: Lian Silva, ELIAS)2122 (Given - Provider: Carin Contreras RN) 1228 (Return to [facility] - Provider: Lian Silva, ELIAS - Comment: pt refused) dextrose (GLUTOSE) 40 [...] or prosecute any alcohol or drug abuse patient.[facility] the event this information is protected by the Federal Confidentiality of Alcohol and Drug Abuse Patient Records regulations: The Federal rules restrict any use of the information to criminally investigate or prosecute any alcohol or drug abuse patient.[facility] the event this information is protected by the Federal Confidentiality of Alcohol and Drug Abuse Patient Records regulations: The Federal rules restrict any use of the information to criminally investigate or prosecute any alcohol or drug abuse patient.[facility] the event this information is protected by the Federal Confidentiality of Alcohol and Drug Abuse Patient Records regulations: The Federal rules restrict any use of the information to criminally investigate or prosecute any alcohol or drug abuse patient.[facility] the event this information is protected by the Federal Confidentiality of Alcohol and Drug Abuse Patient Records regulations: The Federal rules restrict any use of the information to criminally investigate or prosecute any alcohol or drug abuse patient.[facility] Hospital[facility] the event this information is protected by the Federal Confidentiality of Alcohol and Drug Abuse Patient Records regulations: The Federal rules restrict any use of the information to criminally investigate or prosecute any alcohol or drug abuse patient.[facility] Hospital[facility] the event this information is protected by the Federal Confidentiality of Alcohol and Drug Abuse Patient Records regulations: The Federal rules restrict any use of the information to criminally investigate or prosecute any alcohol or drug abuse patient.[facility] the event this information is protected by the Federal Confidentiality of Alcohol and Drug Abuse Patient Records regulations: The Federal rules restrict any use of the information to criminally investigate or prosecute any alcohol or drug abuse patient.[facility] Hospital[facility] the event this information is protected by the Federal Confidentiality of Alcohol and Drug Abuse Patient Records regulations: The Federal rules restrict any use of the information to criminally investigate or prosecute any alcohol or drug abuse patient.[facility] HospitalIn the event this information is protected by the Federal Confidentiality of Alcohol and Drug Abuse Patient Records regulations: The Federal rules restrict any use of the information to criminally investigate or prosecute any alcohol or drug abuse patient.[facility] the event this information is protected by the Federal Confidentiality of Alcohol and Drug Abuse Patient Records regulations: The Federal rules restrict any use of the information to criminally investigate or prosecute any alcohol or drug abuse patient.[facility] Hospital[facility] the event this information is protected by the Federal Confidentiality of Alcohol and Drug Abuse Patient Records regulations: The Federal rules restrict any use of the information to criminally investigate or prosecute any alcohol or drug abuse patient.[facility] HospitalIn the event this information is protected by the Federal Confidentiality of Alcohol and Drug Abuse Patient Records regulations: The Federal rules restrict any use of the information to criminally investigate or prosecute any alcohol or drug abuse patient.[facility] HospitalIn the event this information is protected by the Federal Confidentiality of Alcohol and Drug Abuse Patient Records regulations: The Federal rules restrict any use of the information to criminally investigate or prosecute any alcohol or drug abuse patient.[facility] HospitalIn the event this information is protected by the Federal Confidentiality of Alcohol and Drug Abuse Patient Records regulations: The Federal rules restrict any use of the information to criminally investigate or prosecute any alcohol or drug abuse patient.[facility] FOR RECORDS PERTAINING TO PATIENTS [...] BE BASED ON THE PRIMARY CLINICAL RECORDS. [facility] [employer] [facility]. provides no warranty or guarantee of the accuracy or completeness of information in this document.
[2025-04-23 19:46] VITALS: BP 121/90; PULSE 104; TEMP 36.6; O2SAT 99; BMI 31.0
--- NOTE | 2025-04-23 20:06 | CT_ITS ---
The [address] [address] Patient Name: RUTH SMITH MRN: [id number] date: 1970 Sex: M Assigned Patient Location: ER Current Patient Location: ER Accession/Order Number: [id number] Exam Date: 04/23/2025 20:49 Report Date: 04/23/2025 21:31 At the request of: AYO GASPAR Procedure: CT abdomen pelvis w con CT ABDOMEN AND PELVIS WITH INTRAVENOUS CONTRAST: CLINICAL HISTORY: low ab pain, hx colon cancer ; RLQ COMPARISON: None TECHNIQUE: Spiral images were obtained through the abdomen and pelvis following the administration of intravenous contrast. This CT exam was performed using one or more following dose reduction techniques: Automated exposure control, adjustment of the mA and/or kV according to patient size, or use of iterative reconstruction technique. FINDINGS: Lung Bases: [Lingular atelectasis or scarring. Lungs otherwise grossly clear.] Organs:Lobular/nodular contour liver worrisome for hepatocellular disease. Trace gallstones versus sludge. Otherwise the gallbladder, spleen, adrenals, kidneys, and pancreas are unremarkable.[ GI: Postsurgical changes left colon splenic flexure with anastomotic suture line. Deim-sk-ekaohhxp stool burden. No definite bowel obstruction.[Unremarkable appendix Pelvis:[Bladder unremarkable. Prostate unremarkable.] Peritoneum/Retroperitoneum:No free air or free fluid. No suspicious adenopathy.[ Abd wall/Bones:Degenerative changes greatest about impression L3. Likely chronic. Facet arthropathy lumbosacral junction. No suspicious osseous lesion.[ CT/CT abdomen pelvis w con IMPRESSION: Negative for acute inflammatory process or bowel obstruction Nodular contour of the liver worrisome for underlying hepatocellular disease. Impression dictated by: Thierry Kuo M.D. 04/23/2025 9:31 PM Dictation Location: [place] [address] Electronically authenticated by: [id number] Y Date: 04/23/2025 21:31
--- NOTE | 2025-04-23 20:10 | ED.ABDPAIN1 ---
Documented by User: HUBERT CASTREJON 04/23/25 22:10 HPI - Abdominal Pain General Chief Complaint: Abdominal Pain Stated Complaint: LOWER BACK AND ABDOMAN PAIN GOING INTO LEGS Time Seen by Provider: 04/23/25 19:59 Source: patient Mode of arrival: walk-in Limitations: no limitations History of Present Illness HPI narrative: 54-year-old male presents to the ED with severe abdominal pain that began last night and has progressively worsened through the day. Initially localized to the right lower quadrant, the pain has now spread to both lower quadrants. He reports nausea but no vomiting, and had diarrheal episodes 2 days ago without blood or black stools. He has experienced chills and sweats but did not check his temperature. Denies chest pain, shortness of breath, lightheadedness, or dizziness. Pain is distinct from his known sciatica and lumbar radiculopathy, as it radiates into the abdomen. Past medical history includes colon cancer in 2017, treated with colectomy, with a recent colonoscopy in October showing no recurrence. No other abdominal surgeries. Related Data Home Medications ?Medication ?Instructions ?Recorded ?Confirmed albuterol sulfate 90 mcg/actuation 2 inh inhalation Q6H PRN shortness 10/08/24 12/27/24 aerosol inhaler (Ventolin HFA) of breath or wheezing carvedilol 3.125 mg tablet 6.25 mg PO Q12H 10/08/24 12/27/24 citalopram 20 mg tablet 40 mg PO DAILY 10/08/24 12/27/24 colestipol 1 gram tablet 1 g PO DAILY 10/08/24 12/27/24 cyclobenzaprine 10 mg tablet 10 mg PO Q12H PRN spasms 10/08/24 12/27/24 eluxadoline 100 mg tablet (Viberzi) 100 mg PO BID 10/08/24 12/27/24 fenofibrate 160 mg tablet 160 mg PO DAILY 10/08/24 12/27/24 hydrochlorothiazide 25 mg tablet 25 mg PO DAILY 10/08/24 12/27/24 hyoscyamine sulfate 0.125 mg tablet 0.125 mg PO Q6H 10/08/24 12/27/24 insulin aspart 1 sliding scale dose subcut 10/08/24 12/27/24 (niacinamide)(U-100) 100 unit/mL(3 USEASDIRECTD mL) subcutaneous pen (Fiasp FlexTouch U-100 Insulin) insulin degludec 100 unit/mL (3 20 unit subcut DAILY 10/08/24 12/27/24 mL) subcutaneous pen (Tresiba FlexTouch U-100 insulin) linagliptin 2.5 mg-metformin 1,000 1 tab PO BID 10/08/24 12/27/24 mg tablet (Jentadueto) losartan 50 mg tablet 50 mg PO DAILY 10/08/24 12/27/24 magnesium oxide 400 mg (241.3 mg 400 mg PO DAILY 10/08/24 12/27/24 magnesium) tablet omeprazole 40 mg capsule,delayed 40 mg PO DAILY 10/08/24 12/27/24 release ondansetron 4 mg disintegrating 4 mg translingual Q8H PRN nausea 10/08/24 12/27/24 tablet and vomiting rifaximin 550 mg tablet (Xifaxan) 550 mg PO BID 10/08/24 12/27/24 semaglutide 0.25 mg or 0.5 mg (2 0.5 mg subcut QWEEK 10/08/24 12/27/24 mg/3 mL) subcutaneous pen injector (Ozempic) sucralfate 1 gram tablet 1 g PO Q6H 10/08/24 12/27/24 tamsulosin 0.4 mg capsule 0.4 mg PO Q24H 10/08/24 12/27/24 trazodone 50 mg tablet 50 mg PO DAILY 10/08/24 12/27/24 gabapentin 300 mg capsule 400 mg PO TID 12/27/24 12/27/24 Previous Rx's ?Medication ?Instructions ?Recorded oxycodone-acetaminophen 5 mg-325 1 tab PO Q6H PRN pain #20 tabs 03/08/25 mg tablet (Percocet) prednisone 10 mg tablet See Rx Instructions .Route 03/08/25 .COMPLEX #18 tabs Allergies Allergy/AdvReac Type Severity Reaction Status Date / Time clindamycin Allergy Nausea Verified 04/23/25 19:46 insulin glargine (From Allergy Nausea Verified 04/23/25 19:46 Basaglar KwikPen U-100 Insulin) [facility] Medical History (Updated 04/23/25 @ 23:56 by Kale Hay) Cirrhosis of liver ?K74.60 - Unspecified cirrhosis of liver (ICD-10) Pelvis fracture ?S32.9XXA - Fracture of unspecified parts of lumbosacral spine and pelvis, initial encounter for closed fracture (ICD-10) Femur fracture, right ?S72.91XA - Unspecified fracture of right femur, initial encounter for closed fracture (ICD-10) Diabetes ?E11.9 - Type 2 diabetes mellitus without complications (ICD-10) Social History Little interest or pleasure in doing things: not at all Feeling down, depressed, or hopeless: not at all Exam Narrative Exam Narrative: General: Patient appears very uncomfortable due to abdominal pain. Vital Signs: BP 121/90, HR 104, RR 18, Temp 98?F, SpO 99% on room air. HEENT: Normal. Cardiac: Heart sounds regular, no murmurs. Pulmonary: Lungs clear to auscultation, no wheezes or rales. Abdomen: Soft, tender in the right and left lower quadrants. Mild guarding, no rebound. well-healed scarring. Bowel sounds present. No distention or hernias. Extremities: No pedal edema. Pulses equal in all four extremities. Full range of motion Neuro / Mental Status: Alert and oriented ?3. Constitutional Vital Signs, click to edit/add: Last Vital Signs Temp 98 F 04/23/25 19:46 Pulse 87 04/23/25 21:18 Resp 20 04/23/25 21:18 BP 126/90 04/23/25 21:18 Pulse Ox 99 04/23/25 21:18 O2 Del Method Room Air 04/23/25 21:18 Course Vital Signs Vital signs: Vital Signs Temperature 98 F 04/23/25 19:46 Pulse Rate 104 H 04/23/25 19:46 Respiratory Rate 18 04/23/25 19:46 Blood Pressure 121/90 04/23/25 19:46 Pulse Oximetry 99 04/23/25 19:46 Oxygen Delivery Method Room Air 04/23/25 19:46 Temperature 98 F 04/23/25 19:46 Pulse Rate 87 04/23/25 21:18 Respiratory Rate 20 04/23/25 21:18 Blood Pressure 126/90 04/23/25 21:18 Pulse Oximetry 99 04/23/25 21:18 Oxygen Delivery Method Room Air 04/23/25 21:18 MDM - Abdominal Pain MDM Narrative Medical decision making narrative: 54-year-old male presents with acute lower abdominal pain initially localized to the right lower quadrant and now involving both lower quadrants. He has nausea, recent diarrhea, and mild chills, but is hemodynamically stable. Exam reveals bilateral lower quadrant tenderness with mild guarding, no rebound, and a well-healed surgical scar. Laboratory studies (CBC, CMP, urinalysis, lactate) and CT abdomen/pelvis with contrast are normal, showing no evidence of diverticulitis, obstruction, or other acute intra-abdominal pathology. Pain was difficult to control in patient but he is not narcotic naive, after last dose he does seem more comfortable Given the normal workup and stable clinical status, serious intra-abdominal pathology is unlikely. Patient's urinalysis is still pending. I discussed other labs and imaging with the patient. Appears much more comfortable after the last dose of pain medication and Toradol. I discussed with him discharge and he was comfortable with this pain level at this time. Patient is going to drink some water and provide a urine and then revisit disposition at that time. Patient info was disussed with Dr. Harding, ED attending. Dr. Harding will continue evaluation and provide final disposition on this patient. at 2200 . Lab Data Labs: Lab Results 04/23/25 04/23/25 Range/Units 20:08 22:51 WBC 8.7 (4.0-11.0) 10^3/uL RBC 5.46 (4.70-6.10) 10^6/uL Hgb 15.6 (14.0-18.0) g/dL Hct 45.9 (42.0-54.0) % MCV 84.1 (80.0-94.0) fL MCH 28.6 (25.9-34.0) pg MCHC 34.0 (29.9-35.2) g/dL RDW 14.3 (11.0-15.0) % Plt Count 136 L (150-450) 10^3/uL MPV 13.0 (9.5-13.5) fL Neut % (Auto) 62.9 (43.0-75.0) % Lymph % (Auto) 26.1 (20.5-60.0) % [place] % (Auto) 8.9 (1.7-12.0) % Eos % (Auto) 0.5 L (0.9-7.0) % Baso % (Auto) 0.9 (0.2-2.0) % Neut # (Auto) 5.5 (1.4-6.5) 10^3/uL Lymph # (Auto) 2.3 (1.2-3.8) 10^3/uL [place] # (Auto) 0.8 (0.3-0.8) 10^3/uL Eos # (Auto) 0.0 (0.0-0.7) 10^3/uL Baso # (Auto) 0.1 (0.0-0.1) 10^3/uL Abs Immat Gran (auto) 0.06 H (0.00-0.03) 10^3/uL Imm/Tot Granulo (auto) 0.7 H (0.0-0.5) % Sodium 143 (136-145) mmol/L Potassium 4.0 (3.5-5.1) mmol/L Chloride 103 (98-107) mmol/L Carbon Dioxide 27.7 (21.0-32.0) mmol/L Anion Gap 16.3 BUN 11.0 (7.0-18.0) mg/dL Creatinine 0.94 (0.70-1.30) mg/dL Est GFR ( Amer) >60 (>=60 mL/min/1.73m^2) Est GFR (Non-Af Amer) >60 (>=60 mL/min/1.73m^2) BUN/Creatinine Ratio 11.7 Glucose 106 (74-106) mg/dL Lactate 1.9 (0.4-2.0) mmol/L Calcium 9.5 (8.5-10.1) mg/dL Total Bilirubin 0.5 (0.2-1.0) mg/dL AST 20 (15-37) U/L ALT 17 (16-63) U/L Alkaline Phosphatase 72 (46-116) U/L Total Protein 8.2 (6.4-8.2) g/dL Albumin 4.6 (3.4-5.0) g/dL Globulin 3.6 g/dL Albumin/Globulin Ratio 1.3 Lipase 36.0 (16.0-77.0) U/L Urine Color Yellow (YELLOW) Urine Clarity Clear (CLEAR) Urine pH 6.0 (5.0-9.0) Ur Specific [place] <=1.005 A (1.005-1.025) Urine Protein Negative (NEG/TRACE) mg/dL Urine Glucose (UA) Negative (NEGATIVE) mg/dL Urine Ketones Trace A (NEGATIVE) mg/dL Urine Occult Blood Negative (NEGATIVE) Urine Nitrite Negative (NEGATIVE) Urine Bilirubin Negative (NEGATIVE) Urine Urobilinogen 1.0 (0.2-1.0) EU/dL Ur Leukocyte Esterase Negative (NEGATIVE) Urine RBC None seen (0-2) #/HPF Urine WBC None seen (NONE SEEN) #/HPF Ur Squamous Epith Cells None seen (NONE/RARE) #/LPF Urine Crystals None seen (None Seen) #/HPF Urine Bacteria None seen (NONE SEEN) #/HPF Urine Casts None seen (NONE SEEN) #/LPF Urine Mucus None seen (NONE SEEN) Ur Culture Indicated? No Imaging Data CT scan - abdomen: Radiologist's impression: ITS Impressions Abdomen/Pelvis CT 04/23/25 20:06 IMPRESSION: Negative for acute inflammatory process or bowel obstruction Nodular contour of the liver worrisome for underlying hepatocellular disease. Impression dictated by: Thierry Kuo M.D. 04/23/2025 9:31 PM Dictation Location: [place] [id number] Electronically authenticated by: [id number] Y Date: 04/23/2025 21:31 Discharge Plan Discharge Chief Complaint: Abdominal Pain Clinical Impression: Abdominal pain, Acute on chronic urinary retention Patient Disposition: Home, Self-Care Time of Disposition Decision: 23:55 Prescriptions / Home Meds: No Action gabapentin 300 mg capsule 400 mg PO TID prednisone 10 mg tablet See Rx Instructions .ROUTE .COMPLEX Qty: 18 0RF Rx Instructions: 3 by mouth daily for three days then 2 by mouth daily for three days then 1 by mouth daily for three days oxycodone-acetaminophen [Percocet] 5-325 mg tablet 1 tab PO Q6H PRN (Reason: pain) Qty: 20 0RF albuterol sulfate [Ventolin HFA] 90 mcg/actuation HFA aerosol inhaler 2 inh inhalation Q6H PRN (Reason: shortness of breath or wheezing) carvedilol 3.125 mg tablet 6.25 mg PO Q12H citalopram 20 mg tablet 40 mg PO DAILY colestipol 1 gram tablet 1 g PO DAILY cyclobenzaprine 10 mg tablet 10 mg PO Q12H PRN (Reason: spasms) fenofibrate 160 mg tablet 160 mg PO DAILY Fiasp FlexTouch U-100 Insulin 100 unit/mL (3 mL) insulin pen 1 sliding scale dose subcut USEASDIRECTD hydrochlorothiazide 25 mg tablet 25 mg PO DAILY hyoscyamine sulfate 0.125 mg tablet 0.125 mg PO Q6H Jentadueto 2.5-1,000 mg tablet 1 tab PO BID losartan 50 mg tablet 50 mg PO DAILY magnesium oxide 400 mg (241.3 mg magnesium) tablet 400 mg PO DAILY omeprazole 40 mg capsule,delayed release(DR/EC) 40 mg PO DAILY ondansetron 4 mg tablet,disintegrating 4 mg translingual Q8H PRN (Reason: nausea and vomiting) Ozempic 0.25 mg or 0.5 mg (2 mg/3 mL) pen injector 0.5 mg SUBCUT QWEEK sucralfate 1 gram tablet 1 g PO Q6H tamsulosin 0.4 mg capsule 0.4 mg PO Q24H trazodone 50 mg tablet 50 mg PO DAILY insulin degludec [Tresiba FlexTouch U-100] 100 unit/mL (3 mL) insulin pen 20 unit subcut DAILY Viberzi 100 mg tablet 100 mg PO BID Rx Instructions: must administer with a meal/food Xifaxan 550 mg tablet 550 mg PO BID Print Language: Palauan Instructions: Urinary Retention in Men (ED), Abdominal Pain (ED) Referrals: Francisca Wade MD [Primary Care Provider] - 1 week Documented by User: Kale Harding 04/23/25 23:56 HPI - Abdominal Pain General Chief Complaint: Abdominal Pain Stated Complaint: LOWER BACK AND ABDOMAN PAIN GOING INTO LEGS Time Seen by Provider: 04/23/25 19:59 Related Data Home Medications ?Medication ?Instructions ?Recorded ?Confirmed albuterol sulfate 90 mcg/actuation 2 inh inhalation Q6H PRN shortness 10/08/24 12/27/24 aerosol inhaler (Ventolin HFA) of breath or wheezing carvedilol 3.125 mg tablet 6.25 mg PO Q12H 10/08/24 12/27/24 citalopram 20 mg tablet 40 mg PO DAILY 10/08/24 12/27/24 colestipol 1 gram tablet 1 g PO DAILY 10/08/24 12/27/24 cyclobenzaprine 10 mg tablet 10 mg PO Q12H PRN spasms 10/08/24 12/27/24 eluxadoline 100 mg tablet (Viberzi) 100 mg PO BID 10/08/24 12/27/24 fenofibrate 160 mg tablet 160 mg PO DAILY 10/08/24 12/27/24 hydrochlorothiazide 25 mg tablet 25 mg PO DAILY 10/08/24 12/27/24 hyoscyamine sulfate 0.125 mg tablet 0.125 mg PO Q6H 10/08/24 12/27/24 insulin aspart 1 sliding scale dose subcut 10/08/24 12/27/24 (niacinamide)(U-100) 100 unit/mL(3 USEASDIRECTD mL) subcutaneous pen (Fiasp FlexTouch U-100 Insulin) insulin degludec 100 unit/mL (3 20 unit subcut DAILY 10/08/24 12/27/24 mL) subcutaneous pen (Tresiba FlexTouch U-100 insulin) linagliptin 2.5 mg-metformin 1,000 1 tab PO BID 10/08/24 12/27/24 mg tablet (Jentadueto) losartan 50 mg tablet 50 mg PO DAILY 10/08/24 12/27/24 magnesium oxide 400 mg (241.3 mg 400 mg PO DAILY 10/08/24 12/27/24 magnesium) tablet omeprazole 40 mg capsule,delayed 40 mg PO DAILY 10/08/24 12/27/24 release ondansetron 4 mg disintegrating 4 mg translingual Q8H PRN nausea 10/08/24 12/27/24 tablet and vomiting rifaximin 550 mg tablet (Xifaxan) 550 mg PO BID 10/08/24 12/27/24 semaglutide 0.25 mg or 0.5 mg (2 0.5 mg subcut QWEEK 10/08/24 12/27/24 mg/3 mL) subcutaneous pen injector (Ozempic) sucralfate 1 gram tablet 1 g PO Q6H 10/08/24 12/27/24 tamsulosin 0.4 mg capsule 0.4 mg PO Q24H 10/08/24 12/27/24 trazodone 50 mg tablet 50 mg PO DAILY 10/08/24 12/27/24 gabapentin 300 mg capsule 400 mg PO TID 12/27/24 12/27/24 Previous Rx's ?Medication ?Instructions ?Recorded oxycodone-acetaminophen 5 mg-325 1 tab PO Q6H PRN pain #20 tabs 03/08/25 mg tablet (Percocet) prednisone 10 mg tablet See Rx Instructions .Route 03/08/25 .COMPLEX #18 tabs Allergies Allergy/AdvReac Type Severity Reaction Status Date / Time clindamycin Allergy Nausea Verified 04/23/25 19:46 insulin glargine (From Allergy Nausea Verified 04/23/25 19:46 Basaglar KwikPen U-100 Insulin) [facility] Medical History (Updated 04/23/25 @ 23:56 by Kale Harding) Cirrhosis of liver ?K74.60 - Unspecified cirrhosis of liver (ICD-10) Pelvis fracture ?S32.9XXA - Fracture of unspecified parts of lumbosacral spine and pelvis, initial encounter for closed fracture (ICD-10) Femur fracture, right ?S72.91XA - Unspecified fracture of right femur, initial encounter for closed fracture (ICD-10) Diabetes ?E11.9 - Type 2 diabetes mellitus without complications (ICD-10) Social History Little interest or pleasure in doing things: not at all Feeling down, depressed, or hopeless: not at all Exam Constitutional Vital Signs, click to edit/add: Last Vital Signs Temp 98 F 04/23/25 19:46 Pulse 87 04/23/25 21:18 Resp 20 04/23/25 21:18 BP 126/90 04/23/25 21:18 Pulse Ox 99 04/23/25 21:18 O2 Del Method Room Air 04/23/25 21:18 Course Vital Signs Vital signs: Vital Signs Temperature 98 F 04/23/25 19:46 Pulse Rate 104 H 04/23/25 19:46 Respiratory Rate 18 04/23/25 19:46 Blood Pressure 121/90 04/23/25 19:46 Pulse Oximetry 99 04/23/25 19:46 Oxygen Delivery Method Room Air 04/23/25 19:46 Temperature 98 F 04/23/25 19:46 Pulse Rate 87 04/23/25 21:18 Respiratory Rate 20 04/23/25 21:18 Blood Pressure 126/90 04/23/25 21:18 Pulse Oximetry 99 04/23/25 21:18 Oxygen Delivery Method Room Air 04/23/25 21:18 MDM - Abdominal Pain MDM Narrative Medical decision making narrative: 54-year-old male presents with acute lower abdominal pain initially localized to the right lower quadrant and now involving both lower quadrants. He has nausea, recent diarrhea, and mild chills, but is hemodynamically stable. Exam reveals bilateral lower quadrant tenderness with mild guarding, no rebound, and a well-healed surgical scar. Laboratory studies (CBC, CMP, urinalysis, lactate) and CT abdomen/pelvis with contrast are normal, showing no evidence of diverticulitis, obstruction, or other acute intra-abdominal pathology. Pain was difficult to control in patient but he is not narcotic naive, after last dose he does seem more comfortable Given the normal workup and stable clinical status, serious intra-abdominal pathology is unlikely. Patient's urinalysis is still pending. I discussed other labs and imaging with the patient. Appears much more comfortable after the last dose of pain medication and Toradol. I discussed with him discharge and he was comfortable with this pain level at this time. Patient is going to drink some water and provide a urine and then revisit disposition at that time. Patient info was disussed with Dr. Harding, ED attending. Dr. Harding will continue evaluation and provide final disposition on this patient. at 2200 . Attending physician note -this patient's case discussed with the physician assistant public defender. He can see her detailed note for her impression of this patient and her findings. CT scanning of the abdomen pelvis along with blood testing were unremarkable. We asked patient give us a urine sample but he said he could not pass urine. We ended up doing a straight catheterization for urine and got about 375 to 400 mL of urine out. Urinalysis was negative. Once this was done, the patient's pain subsided. I went and talked with him and reexamined him and he told me that he has a history of difficulty passing urine and is currently seeing a urologist. He has had meds adjusted and they are considering doing a procedure. None of this information was given to the physician assistant public defender or to the nurse taking care of him -it was until I went and saw the patient that he divulge this information. 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 He previously had colon cancer and had a colon resection in 2018. He says that he intermittently will get pain in his lower abdomen, typically associated with colonic etiology. He sometimes has diarrhea but did not have any in this instance. We discussed the negative results, his improvement with our intervention and he was discharged home with recommendation to call his urologist in the morning to discuss potential changes to his medications or to help with his history of urinary retention. We also discussed clear liquid diet with advancement to soft bland diet as long as he does not have recurrence of abdominal pain. - DO Bhakti Lab Data Attestation: I reviewed the patient's lab results. Labs: Lab Results 04/23/25 04/23/25 Range/Units 20:08 22:51 WBC 8.7 (4.0-11.0) 10^3/uL RBC 5.46 (4.70-6.10) 10^6/uL Hgb 15.6 (14.0-18.0) g/dL Hct 45.9 (42.0-54.0) % MCV 84.1 (80.0-94.0) fL MCH 28.6 (25.9-34.0) pg MCHC 34.0 (29.9-35.2) g/dL RDW 14.3 (11.0-15.0) % Plt Count 136 L (150-450) 10^3/uL MPV 13.0 (9.5-13.5) fL Neut % (Auto) 62.9 (43.0-75.0) % Lymph % (Auto) 26.1 (20.5-60.0) % [place] % (Auto) 8.9 (1.7-12.0) % Eos % (Auto) 0.5 L (0.9-7.0) % Baso % (Auto) 0.9 (0.2-2.0) % Neut # (Auto) 5.5 (1.4-6.5) 10^3/uL Lymph # (Auto) 2.3 (1.2-3.8) 10^3/uL [place] # (Auto) 0.8 (0.3-0.8) 10^3/uL Eos # (Auto) 0.0 (0.0-0.7) 10^3/uL Baso # (Auto) 0.1 (0.0-0.1) 10^3/uL Abs Immat Gran (auto) 0.06 H (0.00-0.03) 10^3/uL Imm/Tot Granulo (auto) 0.7 H (0.0-0.5) % Sodium 143 (136-145) mmol/L Potassium 4.0 (3.5-5.1) mmol/L Chloride 103 (98-107) mmol/L Carbon Dioxide 27.7 (21.0-32.0) mmol/L Anion Gap 16.3 BUN 11.0 (7.0-18.0) mg/dL Creatinine 0.94 (0.70-1.30) mg/dL Est GFR ( Amer) >60 (>=60 mL/min/1.73m^2) Est GFR (Non-Af Amer) >60 (>=60 mL/min/1.73m^2) BUN/Creatinine Ratio 11.7 Glucose 106 (74-106) mg/dL Lactate 1.9 (0.4-2.0) mmol/L Calcium 9.5 (8.5-10.1) mg/dL Total Bilirubin 0.5 (0.2-1.0) mg/dL AST 20 (15-37) U/L ALT 17 (16-63) U/L Alkaline Phosphatase 72 (46-116) U/L Total Protein 8.2 (6.4-8.2) g/dL Albumin 4.6 (3.4-5.0) g/dL Globulin 3.6 g/dL Albumin/Globulin Ratio 1.3 Lipase 36.0 (16.0-77.0) U/L Urine Color Yellow (YELLOW) Urine Clarity Clear (CLEAR) Urine pH 6.0 (5.0-9.0) Ur Specific [place] <=1.005 A (1.005-1.025) Urine Protein Negative (NEG/TRACE) mg/dL Urine Glucose (UA) Negative (NEGATIVE) mg/dL Urine Ketones Trace A (NEGATIVE) mg/dL Urine Occult Blood Negative (NEGATIVE) Urine Nitrite Negative (NEGATIVE) Urine Bilirubin Negative (NEGATIVE) Urine Urobilinogen 1.0 (0.2-1.0) EU/dL Ur Leukocyte Esterase Negative (NEGATIVE) Urine RBC None seen (0-2) #/HPF Urine WBC None seen (NONE SEEN) #/HPF Ur Squamous Epith Cells None seen (NONE/RARE) #/LPF Urine Crystals None seen (None Seen) #/HPF Urine Bacteria None seen (NONE SEEN) #/HPF Urine Casts None seen (NONE SEEN) #/LPF Urine Mucus None seen (NONE SEEN) Ur Culture Indicated? No Imaging Data CT scan - abdomen: Radiologist's impression: ITS Impressions Abdomen/Pelvis CT 04/23/25 20:06 IMPRESSION: Negative for acute inflammatory process or bowel obstruction Nodular contour of the liver worrisome for underlying hepatocellular disease. Impression dictated by: Thierry Kuo M.D. 04/23/2025 9:31 PM Dictation Location: [place] Electronically authenticated by: [id number] Y Date: 04/23/2025 21:31 Discharge Plan Discharge Chief Complaint: Abdominal Pain Clinical Impression: Abdominal pain, Acute on chronic urinary retention Patient Disposition: Home, Self-Care Time of Disposition Decision: 23:55 Prescriptions / Home Meds: No Action gabapentin 300 mg capsule 400 mg PO TID prednisone 10 mg tablet See Rx Instructions .ROUTE .COMPLEX Qty: 18 0RF Rx Instructions: 3 by mouth daily for three days then 2 by mouth daily for three days then 1 by mouth daily for three days oxycodone-acetaminophen [Percocet] 5-325 mg tablet 1 tab PO Q6H PRN (Reason: pain) Qty: 20 0RF albuterol sulfate [Ventolin HFA] 90 mcg/actuation HFA aerosol inhaler 2 inh inhalation Q6H PRN (Reason: shortness of breath or wheezing) carvedilol 3.125 mg tablet 6.25 mg PO Q12H citalopram 20 mg tablet 40 mg PO DAILY colestipol 1 gram tablet 1 g PO DAILY cyclobenzaprine 10 mg tablet 10 mg PO Q12H PRN (Reason: spasms) fenofibrate 160 mg tablet 160 mg PO DAILY Fiasp FlexTouch U-100 Insulin 100 unit/mL (3 mL) insulin pen 1 sliding scale dose subcut USEASDIRECTD hydrochlorothiazide 25 mg tablet 25 mg PO DAILY hyoscyamine sulfate 0.125 mg tablet 0.125 mg PO Q6H Jentadueto 2.5-1,000 mg tablet 1 tab PO BID losartan 50 mg tablet 50 mg PO DAILY magnesium oxide 400 mg (241.3 mg magnesium) tablet 400 mg PO DAILY omeprazole 40 mg capsule,delayed release(DR/EC) 40 mg PO DAILY ondansetron 4 mg tablet,disintegrating 4 mg translingual Q8H PRN (Reason: nausea and vomiting) Ozempic 0.25 mg or 0.5 mg (2 mg/3 mL) pen injector 0.5 mg SUBCUT QWEEK sucralfate 1 gram tablet 1 g PO Q6H tamsulosin 0.4 mg capsule 0.4 mg PO Q24H trazodone 50 mg tablet 50 mg PO DAILY insulin degludec [Tresiba FlexTouch U-100] 100 unit/mL (3 mL) insulin pen 20 unit subcut DAILY Viberzi 100 mg tablet 100 mg PO BID Rx Instructions: must administer with a meal/food Xifaxan 550 mg tablet 550 mg PO BID Print Language: [place] Instructions: Urinary Retention in Men (ED), Abdominal Pain (ED) Referrals: Francisca Wade MD [Primary Care Provider] - 1 week
[2025-04-23] MEDS: MORPHINE SULFATE 2 MG/ML SYRINGE IV (20:20)
[2025-04-23] MEDS: 0.9 % SODIUM CHLORIDE 1,000 ML 999 ML IV (20:20)
[2025-04-23 20:21] LABS: Hematocrit 45.9 % (42.0-54.0); Hemoglobin 15.6 g/dL (14.0-18.0); Immature Granulocytes Abs Auto 0.06 10^3/uL (0.00-0.03); Immature Granulocytes Pct Auto 0.7 % (0.0-0.5); Lymphocytes Absolute Auto 2.3 10^3/uL (1.2-3.8); Mean Corpuscular HGB Conc 34.0 g/dL (29.9-35.2); Mean Corpuscular Hemoglobin 28.6 pg (25.9-34.0); Mean Corpuscular Volume 84.1 fL (80.0-94.0); Platelet Count 136 10^3/uL (150-450); Red Blood Count 5.46 10^6/uL (4.70-6.10); White Blood Count 8.7 10^3/uL (4.0-11.0)
[2025-04-23] MEDS: HYDROMORPHONE HCL 1 MG/ML CARTRIDGE IV (20:32)
[2025-04-23 20:39] LABS: Alanine Aminotransferase 17 U/L (16-63); Albumin Globulin Ratio 1.3; Albumin Level 4.6 g/dL (3.4-5.0); Alkaline Phosphatase 72 U/L (46-116); Anion Gap 16.3; Aspartate Amino Transferase 20 U/L (15-37); Blood Urea Nitrogen 11.0 mg/dL (7.0-18.0); Calcium 9.5 mg/dL (8.5-10.1); Carbon Dioxide 27.7 mmol/L (21.0-32.0); Chloride 103 mmol/L (98-107); Estimated GFR (African America >60 (>=60 mL/min/1.73m^2); Estimated GFR (Non-African Ame >60 (>=60 mL/min/1.73m^2); Globulin 3.6 g/dL; Glucose 106 mg/dL (74-106); Lipase 36.0 U/L (16.0-77.0); Potassium 4.0 mmol/L (3.5-5.1); Sodium 143 mmol/L (136-145); Total Protein 8.2 g/dL (6.4-8.2)
[2025-04-23 20:41] LABS: Lactate/Lactic Acid 1.9 mmol/L (0.4-2.0)
[2025-04-23 21:18] VITALS: BP 126/90; PULSE 87; O2SAT 99
[2025-04-23] MEDS: HYDROMORPHONE HCL 1 MG/ML CARTRIDGE 0.5 MG IVP (21:26)
[2025-04-23] MEDS: KETOROLAC TROMETHAMINE 30 MG/ML VIAL 15 MG IVP (21:41)
[2025-04-23 22:56] LABS: Glucose Urine UA NEGATIVE (NEGATIVE)
[2025-04-23 23:02] LABS: Cast Seen? NONE SEEN #/LPF (NONE SEEN); Crystals Seen? None Seen #/HPF (None Seen); Urine Culture Indicated NO
== END 2025-04-23 23:50 | disposition home or self-care (01) ==
PROVIDERS: Physician Assistant; Emergency Provider Emergency Medicine; PCP Internal Medicine
DX: R10.31 Right lower quadrant pain (principal); R10.32 Left lower quadrant pain; M54.16 Radiculopathy, lumbar region; M54.30 Sciatica, unspecified side; Z85.038 Personal history of other malignant neoplasm of large intestine; Z90.49 Acquired absence of other specified parts of digestive tract; R33.9 Retention of urine, unspecified
CPT/HCPCS: 36415; 74177; 80053; 81001; 83605; 83690; 85025; 96361; 96374; 96375; 96376; 99285; J1171; J1885; J2270; J2405; Q9967

== ENCOUNTER 2025-05-20 17:20 | Emergency (ER) | payer MEDICARE, MEDICAID, SELFPAY ==
--- OUTSIDE RECORDS SUMMARY | 2025-01-01 08:45 | XMS_ITS ---
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 Name Role Phone Francisca Wade Primary Care Provider REASON FOR VISIT ER Rugby 12/27 pain, back & leg pain Social History Sex Assigned At : Social History Observation Description Sex Assigned At Male Encounters Encounter Location Date Provider Diagnosis Main [address] [place] [id number] 01/01/2025 Francisca Wade Plan Of Treatment Next Appt Details Provider Name:Francisca Wade, 06/17/2025 02:00:00 PM, [address] [place] [place], [id number], Provider Name:Francisca Wade, 07/29/2025 03:00:00 PM, [address] [place], [place], [id number], Progress Notes * Marcelino SMITH KDOB: (54 yo M)Acc No.[id number]:01/01/2025 Medical Note Patient: Jasvir GARCIAMarcelino BRAVO Provider: Jacob Wade MD :[id number] A ge:54 Y S ex:Male Date:01/01/2025 Address:[facility] [address], [place], [id number] Subjective: * Chief Complaints: * 1 . ER Artem 12/27 pain, back & leg pain. * Medical History: Objective: * Vitals: Assessment: Plan: * Treatment: * Billing Information: * Visit Code: * Procedure Codes: * Electronic signature of Atul Wade MD on 05/20/2025 at 02:39 PM EDT Sign off status: Pending * Provider: Jacob Wade MD Date: 0 01/01/2025 Generated for Barrington torres/Vasile/Randall on: 1 02:39 PM EDT
--- OUTSIDE RECORDS SUMMARY | 2025-05-12 10:30 | XMS_ITS | Encounter Summary ---
Author Organization [facility] Address [address] [place] [address] Care Team Providers Care Cra Officer Name Role Phone Jun Arriola DO Unavailable [phone] Lorie Ozuna RN Unavailable [phone] Gianna Hodge APRN.DECISION UNIT RN Unavailable [phone] Francisca Wade MD Primary Care Provider [phone] Source Comments In the event this information is protected by the Federal Confidentiality of Alcohol and Drug AbusePatient Records regulations: The Federal rules restrict any use of the information to criminally investigate or prosecute any alcohol or drug abuse patient.[facility] Reason for Referral * Consult, Test, Treat (Routine) - Authorized Specialty Diagnoses / Procedures Referred By Contles t Referred To Contact Neurology Diagnoses Polyneuropathy Procedures OFFICE/OUTPATIENT [facility] 60 MINUTES Guillermo Hooks PA-C [address] [place] [address] Phone: tel: fax: Referral ID Status Reason Start Date Expiration Date Visits Requested Visits Authorized [id number] Authorized PCP Requested Referral 05/20/2025 05/20/2026 1 1 Reason for Visit * Reason Comments Pain Encounter Details Date Type Department Care Team (Latest Contact Info) Description 05/12/2025 10:30 AM EDT [facility] [address] [place] [address] Guillermo Hooks PA-C [address] [phone] Polyneuropathy (Primary Dx); Radiculopathy, lumbar region; History of lumbar laminectomy; Chronic pain syndrome Social History Tobacco Use Types Packs/Day Years Used Date Smoking Tobacco: Former Cigarettes Q uit: 2010 Smokeless Tobacco: Never Alcohol Use Standard Drinks/Week Comments No 0 (1 standard drink = 0.6 oz pur e alcohol) PHQ-2 Answer Date Recorded PHQ-2 score 3 03/18/2025 Area Deprivation Index Answer Date Justyn rded National Score (1-100), lower number is lower ri sk 71 11/22/2024 State Score (1-10), lower number is lower risk 5 11/22/2024 Data from: https://www.neighborhoodatlas.medicine.[facility].edu/. Last address used for calculation [address] [place] [address] 11/22/2024 Sex and Gender Information Value Date Recorded Sex Assigned at Male 11/08/2024 4:06 PM EDT Legal Sex Male 8:44 AM EDT Gender Identity Male 11/08/2024 4:06 PM EDT Sexual Orientation Straight 11/08/2024 4: 06 PM EDT documented as of this encounter Functional Status * Are you deaf or do you have serious difficulty hearing? Answer Date of Assessment Author No 04/27/2018 4:56 PM EDT Ra patricia Ramsey RN * Are you blind or do you have serious difficulty seeing, even when wearing glasses? Answer Date of Assessment Author No 04/27/2018 4:56 PM EDT Ra patricia Ramsey RN * Do you have serious difficulty walking or climbing stairs? Answer Date of Assessment Author No 04/27/2018 4:56 PM EDT Ra patricia Ramsey RN * Do you have difficulty dressing or bathing? Answer Date of Assessment Author No 04/27/2018 4:56 PM EDRa patricia Yip RN * Because of a physical, mental, or emotional condition, do you have difficulty doing errands alone such as visiting a doctor's office or shopping? Answer Date of Assessment Author No 04/27/2018 4:56 PM Ra patricia Tucker RN documented as of this encounter Mental Status * Because of a physical, mental, or emotional condition, do you have serious difficulty concentrating, remembering, or making decisions? Answer Entry Date Author No 04/27/2018 4:56 PM Ra patricia Tucker RN documented in this encounter Progress Notes * Guillermo Hooks PA-C - 05/12/2025 10:30 AM EDT [facility] virtual encounter Evaluation Marcelino Tracye consented to the encounter being held via Zoom Guillermo Hooks PA-C and Marcelino Kyung present during telemedicine encounter Confirmed you are in [place] today, and check in to confirm your consent to be seen virtually. I have communicated my name and active licensure. The patient???s identity and physical location were verified at the time of this visit. The patient has been informed of the risks and benefits of --and alternatives to -- treatment through a remote evaluation and consents to proceed with the evaluation remotely. Date: May 12, 2025 - 8:04 AM Chief Complaint: Lower back pain and lower extremity pain SUBJECTIVE: Marcelino Tracey is a 54 year old who presents to [facility] Department for a follow up appointment via Zoom. Prior encounter: 04/01/2025 Carlo Tracey is a 54-year-old male with a history [...] for an EMG on April 28 in [place], although he expresses concern about his ability to make the trip due to his current pain level. Additionally, Carlo is experiencing difficulty with ambulation and reports that tamsulosin, prescribed by his urologist, is prolonging his time in the bathroom. He has a follow-up appointment with hisurologist in May to discuss a potential procedure involving a flap. The plan from the last visit on 04/01/2025 was: 04/01/2025 The primary encounter diagnosis was Radiculopathy, [...] - EMG scheduled for April 28 in [place]. - Advised patient to go to the ER if pain becomes severe, if unable to walk due to leg weakness, orif experiencing incontinence. - Follow-up after EMG to [...] out of concern for additional sedating medications. Since the last visit, Mr. Larkin reports persistent bilateral lower back pain with radiating pain into the lower extremities. The pain tends to involve the medial aspect of the proximal right lower extremity, lateral aspect of the proximal left lower extremity and lateral aspect of the distal right leg. With activity, the pain can radiate into the right foot. The pain is intensified with movement and alleviated to some degree with rest. He reports persistent numbness in the lower extremitiesand feet. He denies overt weakness in the lower extremities but states when the pain is intense hislegs feel unsteady. This has contributed to falls in the past. - He denies interval fall or injury. - He denies current constitutional complaints. - He denies bowel or bladder incontinence. He states he has been following with urology for slow bladder emptying. He states he has another follow-up pending with his urologist on May 21. - He states he had a follow-up visit with his primary care physician since last encounter. He was advised to follow-up in the emergency department for an exacerbation of his chronic back and lower extremity pain. Patient states he was treated with steroids which provided some pain reduction. - He completed EMG nerve conduction studies which we reviewed today. Pain Procedures: L5 TFESI by [employer] Physical Therapy/Home Exercise: Yes Pain medications reviewed: No Pain Medications: Duloxetine Gabapentin Cyclobenzaprine Trazodone OARRS: Reviewed: The patient's OARRS report was reviewed and is consistent with the reported medication use. Current Outpatient Medications: Current Outpatient Medications Medication Sig DULoxetine DR (CYMBALTA) 30 mg capsule TAKE 2 CAPSULES BY MOUTH DAILY hyoscyamine (LEVSIN) 0.125 mg tablet Take 0.125 [...] Take 40 mg by mouth once daily. No current facility-administered medications for this visit. Physical exam: General: Alert oriented no acute distress HEENT: Normocephalic atraumatic Pulmonary: Nonlabored respirations on room air Skin: No visible rash or lesion on exposed skin New Imaging and Diagnostic Studies: Yes, -(04/28/2025) EMG nerve conduction studies. Conclusion: This is an abnormal study. There is electrophysiologic evidence for a sensorimotor neuropathy affecting the lower extremities. There is no evidence for a lumbosacral radiculopathy. ASSESSMENT: Marcelino Tracey is a 54 year old male with (G62.9) Polyneuropathy (primary encounter diagnosis) (M54.16) Radiculopathy, lumbar region (Z98.890) History of lumbar laminectomy (G89.4) Chronic pain syndrome Plan: We reviewed the patient's EMG and nerve conduction studies. I also discussed the results with Dr. Mckeon 2. Given the findings of a sensorimotor neuropathy, we are recommending the patient consult with neurology for further evaluation. If it is determined the patient's neuropathy is most consistent withdiabetic peripheral neuropathy, spinal cord stimulation could be considered as a treatment option. Consultation request placed. 3. Continue current medication regiment including Cymbalta,, gabapentin and Flexeril. 4. Follow-up after completing evaluation with neurology to discuss the next steps. The above plan and management options were discussed at length with patient. The patient is in agreement with the above and verbalized understanding. Total time spent on Zoom discussion: 20 minutes Guillermo Hooks PA-C May 12, 2025 documented in this encounter Plan of Treatment Upcoming Encounters Date Type Department Care Team (Late st Contact Info) Description 08/26/2025 3:30 PM EST Office Visit [facility] [address] [place] [address] [place] [address] 6 Month Follow Up 08/26/2025 3:40 PM EST Visit (SP) Office Hematology/Oncology [address] [place] [address] [place] [address] Alfonzo Crouch MD [address] [place] [address] [place] [address] 6 Month Follow Up Scheduled Referrals Name Type Priority Associated Diagnoses Orde r Schedule CONSULT TO NEUROLOGY Referral Routine Polyneuropathy 1 Occurrences starting 05/20/2025 until 05/20/2026 documented as of this encounter Visit Diagnoses Diagnosis Polyneuropathy- Primary Unspecified hereditary and idiopathic peripheral neuropathy Radiculopathy, lumbar region Thoracic or lumbosacral neuritis or radiculitis, unspecified History of lumbar laminectomy Chronic pain syndrome documented in this encounter Care Teams Cra Officer Relationship Specialty Start Date End Date Francisca Wade MD [address] [place] [address] PCP - General Internal Medicine 12/16/24 Jun Arriola DO Physician Hematology 03/26/18 Lorie Ozuna, MORE [address] [place] [address] [employer] 03/26/18 Gianna Hdoge APRN.DECISION UNIT RN [facility] [place] [address] Nurse Practitioner Hematology/Oncology 03/26/18 documented as of this encounter
--- OUTSIDE RECORDS SUMMARY | 2025-05-20 14:35 | XMS_ITS | Encounter Summary ---
Author Organization [facility] Address [id number] [address] [place] [address] Care Team Providers Care Assistant Producer Name Role Phone Francisca Wade MD Primary Care Provider [phone] Encounter Details Date Type Department Care Team (Latest Contact Info) Description 05/20/2025 2:35 PM EDT Hospital Encounter [facility] - Radiology [address] [place] [address] Lower abdominal pain, unspecified Social History Tobacco Use Types Packs/Day Years Used Date Smoking Tobacco: Every Day Cigarettes 0.5 55.5 Started: 12/06/1989 Smokeless Tobacco: Never Alcohol Use Standard Drinks/Week Comments Not Currently 0 (1 standard drink = 0.6 oz pur e alcohol) [facility] Utilities Answer Date Recorded In the past 12 months has [employer] electric, gas, oil, or water company threatened to shut off services in your home? No 02/03/2024 Social Connection and Isolation Panel [NHANES] A nswer Date Recorded In a typical week, how many times do you talk on the phone with family, friends, or neighbors? Twice a week 02/03/2024 How often do you get together with friends or re latives? Twice a week 02/03/2024 How often do you attend advent or nondenominational serv ices? Never 02/03/2024 Do you belong to any clubs o r organizations such as advent groups, unions, fraternal or athletic groups, or school groups? No 02/03/2024 How often do you attend meet ings of the clubs or organizations you belong to? Never 02/03/2024 Are you , , di vorced, , never , or living with a partner? Never 02/03/2024 AUDIT-C Answer Date Recorded Q1: How often do you have a drink containing alcohol? Never 02/03/2024 Q2: How many drinks containi ng alcohol do you have on a typical day when you are drinking? Patient does not drink Q3: How often do you have si x or more drinks on one occasion? Never 02/03/2024 Overall Financial Resource Strain (CARDIA) Answe r Date Recorded How hard is it for you to pa y for the very basics like food, housing, medical care, and heating? Not hard at all 02/03/2024 PHQ-2 Answer Date Recorded Total Score 2 02/03/2024 [facility] - Occupational Stress Questionnaire Answer Date Recorded Do you feel stress - tense, restless, nervous, or anxious, or unable to sleep at night because your mind is troubled all the time - these days? To some extent 02/03/2024 Exercise Vital Sign Answer Date Recorde d On average, how many days pe r week do you engage in moderate to strenuous exercise (like a brisk walk)? 2 days 02/03/2024 On average, how many minutes do you engage in exercise at this level? 20 min 02/03/2024 PRAPARE - Transportation Answer Date Re corded In the past 12 months, has l ack of transportation kept you from medical appointments or from getting medications? No 01/13 In the past 12 months, has l ack of transportation kept you from meetings, work, or from getting things needed for daily living? No 02/07/2024 Housing Instability Answer Date Recorde d Are you worried or concerned that in the next two months you may not have stable housing that you own, rent or stay in as a part of a household? No 02/03/2024 Childcare Answer Date Recorded Do problems getting child ca re make it difficult for you to work or study? No 02/03/2024 Employment Answer Date Recorded Do you need help finding a [facility] career center and/or a training program? No 02/03/2024 Hunger Screening Answer Date Recorded Within the past 12 months we worried whether our food would run out before we got money to buy more. Never True 05/05/2025 Within the past 12 months th e food we bought just didn't last and we didn't have money to get more. Never True 05/05/2025 Purpose - Life Answer Date Recorded I have a purpose and direction in my life. Stron gly Agree 02/03/2024 Sex and Gender Information Value Date Recorded Sex Assigned at Male 08/11/2021 6:01 PM EST Legal Sex Male 10:25 AM EST Gender Identity Male 08/11/2021 6:01 PM EST Sexual Orientation Straight 08/11/2021 6: 01 PM EST documented as of this encounter Plan of Treatment Upcoming Encounters Date Type Department Care Team (Late st Contact Info) Description 05/21/2025 9:45 AM EDT Office Visit [facility] [address] [place] [address] [place] [phone] Jeni Gillis PA [address] [place] [address] 05/26/2025 3:15 PM EDT Office Visit [facility] [address] [place] [phone] Sid Alves MD [address] [place] [id number] documented as of this encounter Goals Goal Patient Goal Type Associated Problems Recent Progress Patient-Stated? Author to improve mobility and get home General Yes Citlalli Goode, RN Note: Evaluation of progress towards goal: Participating in therapy <enter goal here> General Yes Chika Ramsey LSW Note: Evaluation of progress towards goal: pt plans to return to [facility] [place] to go home General Yes Connie Ramirez RN Note: Evaluation of progress towards goal: participating in therapy documented as of this encounter Procedures Procedure Name Priority Date/Time Associated Diagnosis Comments XR ABDOMEN AP 1 VW Routine 05/20/2025 2: 59 PM EDT Lower abdominal pain, unspecified documented in this encounter Results * X-ray abdomen ap 1 view (05/20/2025 2:59 PM EDT) Anatomical Region Laterality Modality Body, Abdomen N/A Computed Radiogr aphy 05/20/2025 3:06 PM EDT Narrative 05/20/2025 3:09 PM EDT HISTORY AND/OR TECH NOTES Lower abdominal pain, unspecified History: Cancer Pain and difficulty voiding PROCEDURE AP supine abdomen COMPARISON March 2018 November 12 FINDINGS There is a right gamma nail in place Pelvic ring grossly intact Moderate DJD bilaterally Degenerative changes of the spine Decreased sensitivity for detecting free air on supine imaging No visible basilar consolidation Nonobstructive bowel pattern with moderate gas and stool No suspicious calcifications visible Calcific density in the right upper quadrant probably corresponding to some liver calcifications seen on prior CT IMPRESSION: No acute findings. Finalized by Bartolo Ruiz MD on 05/20/2025 3:09 PM Procedure Note Bartolo Ruiz MD - 05/20/2025 HISTORY AND/OR TECH NOTES Lower abdominal pain, unspecified History: Cancer Pain and difficulty voiding PROCEDURE AP supine abdomen COMPARISON March 2018 November 12 FINDINGS There is a right gamma nail in place Pelvic ring grossly intact Moderate DJD bilaterally Degenerative changes of the spine Decreased sensitivity for detecting free air on supine imaging No visible basilar consolidation Nonobstructive bowel pattern with moderate gas and stool No suspicious calcifications visible Calcific density in the right upper quadrant probably corresponding tosome liver calcifications seen on prior CT IMPRESSION: No acute findings. Finalized by Bartolo Ruiz MD on 05/20/2025 3:09 PM us Guillermo Thornton MD IMG DIAGNOSTIC IMAGING ORDERABL ES Final Result documented in this encounter Visit Diagnoses Diagnosis Lower abdominal pain, unspecified documented in this encounter Additional Health Concerns Assessment Noted Time PHQ-9 Depression Total Score: 2 02/03/20 3:58 PM EDT A Body Mass Index follow-up plan has been documented for the patient 07/18/2024 1:42 PM EST documented as of this encounter Care Teams Assistant Producer Relationship Specialty Start Date End Date Francisca Wade MD [address] [place] [address] PCP - General Internal Medicine 07/18/24 documented as of this encounter
[2025-05-20 17:32] VITALS: BP 169/99; PULSE 102; TEMP 36.8; O2SAT 100; BMI 31.4
--- OUTSIDE RECORDS SUMMARY | 2025-05-20 17:45 | XMS_ITS | Encounter Summary ---
Author Organization [facility] Address [address] [place] [address] Care Team Providers Care Pipe Production Worker Name Role Phone Jun Arriola DO Unavailable [phone] Lorie Ozuna RN Unavailable [phone] Gianna Hodge APRN.BIOLOGY SPECIMEN TECHNICIAN Unavailable [phone] Francisca Wade MD Primary Care Provider [phone] Source Comments In the event this information is protected by the Federal Confidentiality of Alcohol and Drug AbusePatient Records regulations: The Federal rules restrict any use of the information to criminally investigate or prosecute any alcohol or drug abuse patient.[facility] Encounter Details Date Type Department Care Team (Late st Contact Info) Description 02/10/2025 Patient Msg Neurology [address] [place] [address] Provider, David EMG Order Social History Tobacco Use Types Packs/Day Years Used Date Smoking Tobacco: Former Cigarettes Q uit: 2010 Smokeless Tobacco: Never Alcohol Use Standard Drinks/Week Comments No 0 (1 standard drink = 0.6 oz pur e alcohol) PHQ-2 Answer Date Recorded PHQ-2 score 0 05/28/2018 Area Deprivation Index Answer Date Justyn rded National Score (1-100), lower number is lower ri sk 71 11/22/2024 State Score (1-10), lower number is lower risk 5 11/22/2024 Data from: https://www.neighborhoodatlas.medicine.[facility]/. Last address used for calculation [address] 11/22/2024 Sex and Gender Information Value Date [...] 04/27/2018 4:56 PM Ra patricia Tucker RN * Because of a physical, mental, [...] patricia Tucker RN documented in this encounter Plan of Treatment Upcoming Encounters Date Type Department Care Team (Late st Contact Info) Description 08/26/2025 3:30 PM EST Office Visit [facility] [address] [place] [address] 6 Month Follow Up 08/26/2025 3:40 PM EST Visit (SP) Office Hematology/Oncology [address] [place] [address] Alfonzo Crouch MD [address] [place] [address] 6 Month Follow Up documented as of this encounter Visit Diagnoses Not on filedocumented in this encounter Care Teams Pipe Production Worker Relationship Specialty Start Date End Date Francisca Wade MD [address] [place] [address] PCP - General Internal Medicine 12/16/24 Jun Arriola DO Physician Hematology 03/26/18 Lorie Ozuna RN [address] [place] [address] [place] [address] High School Academic Coach 03/26/18 Gianna Hodge APRN.ELIANE [address] [place] [address] [place] [address] Nurse Practitioner Hematology/Oncology 03/26/18 documented as of this encounter
--- OUTSIDE RECORDS SUMMARY | 2025-05-20 17:45 | XMS_ITS | Encounter Summary ---
Author Organization [facility] Address [address] [place] [address] Care Team Providers Care Oracle Apex Developer Name Role Phone Jun Arriola DO Unavailable [phone] Lorie Ozuna RN Unavailable [phone] Gianna Hodge APRN.ELECTROTYPER Unavailable [phone] Francisca Wade MD Primary Care Provider [phone] Source Comments In the event this information is protected by the Federal Confidentiality of Alcohol and Drug AbusePatient Records regulations: The Federal rules restrict any use of the information to criminally investigate or prosecute any alcohol or drug abuse patient.[facility] Encounter Details Date Type Department Care Team (Late st Contact Info) Description 01/28/2025 Patient Msg Neurology [address] [place] [address] Provider, David EMG Order Social [...] is lower risk 5 11/22/2024 Data from: https://www.neighborhoodatlas.medicine.[facility]/. Last address used for calculation [...] Description 08/26/2025 3:30 PM EST Office Visit [facility] [address] [place] [address] 6 Month Follow Up 08/26/2025 3:40 PM EST Visit (SP) Office Hematology/Oncology [address] [place] [address] Alfonzo Crouch MD [address] [place] [address] 6 Month Follow Up documented as of this encounter Visit Diagnoses Not on filedocumented in this encounter Care Teams Oracle Apex Developer Relationship Specialty Start Date End Date Francisca Wade MD [address] [place] [address] PCP - General Internal Medicine 12/16/24 Jun Arriola DO Physician Hematology 03/26/18 Lorie Ozuna RN [address] [place] [address] [place] [address] Mobile Paramedical Examiner 03/26/18 Gianna Hodge APRN.ELIANE [address] [place] [address] [place] [address] Nurse Practitioner Hematology/Oncology 03/26/18 documented as of this encounter
--- OUTSIDE RECORDS SUMMARY | 2025-05-20 17:45 | XMS_ITS | Encounter Summary ---
Author Organization [facility] Address [address] [place] [address] Care Team Providers Care Sawmill Manager Name Role Phone Jun Arriola DO Unavailable [phone] Lorie Ozuna RN Unavailable [phone] Gianna Hodge APRN.MACHINE WEDGER Unavailable [phone] Francisca Wade MD Primary Care Provider [phone] Source Comments In the event this information is protected by the Federal Confidentiality of Alcohol and Drug AbusePatient Records regulations: The Federal rules restrict any use of the information to criminally investigate or prosecute any alcohol or drug abuse patient.[facility] Encounter Details Date Type Department Care Team (Late st Contact Info) Description 02/03/2025 Patient Msg Neurology [address] [place] [address] Provider, David EMG Order Social [...] is lower risk 5 11/22/2024 Data from: https://www.neighborhoodatlas.medicine.[facility]/. Last address used for calculation [address] [...] Description 08/26/2025 3:30 PM EST Office Visit [facility] [address] [place] [address] 6 Month Follow Up 08/26/2025 3:40 PM EST Visit (SP) Office Hematology/Oncology [address] [address] Alfonzo Crouch MD [address] [address] 6 Month Follow Up documented as of this encounter Visit Diagnoses Not on filedocumented in this encounter Care Teams Sawmill Manager Relationship Specialty Start Date End Date Francisca Wade MD [address] [place] [address] PCP - General Internal Medicine 12/16/24 Jun Arriola DO Physician Hematology 03/26/18 Lorie Ozuna RN [address] [place] [address] [place] [address] Hazardous Waste Technician 03/26/18 Gianna Hodge APRN.ELIANE [address] [place] [address] [place] [address] Nurse Practitioner Hematology/Oncology 03/26/18 documented as of this encounter
--- OUTSIDE RECORDS SUMMARY | 2025-05-20 17:46 | XMS_ITS | Encounter Summary ---
Author Organization [facility] Address [address] [place] [address] Care Team Providers Care Tile Finisher Name Role Phone Jun Arriola DO Unavailable [phone] Lorie Ozuna RN Unavailable [phone] Gianna Hodge APRN.CLINICAL NURSE SPECIALIST Unavailable [phone] Francisca Wade MD Primary Care Provider [phone] Source Comments In the event this information is protected by the Federal Confidentiality of Alcohol and Drug AbusePatient Records regulations: The Federal rules restrict any use of the information to criminally investigate or prosecute any alcohol or drug abuse patient.[facility] Encounter Details Date Type Department Care Team (Late st Contact Info) Description 01/20/2025 Patient Msg Neurology [address] [place] [address] Provider, David EMG Requested Appointment Social History Tobacco Use Types Packs/Day Years [...] is lower risk 5 11/22/2024 Data from: https://www.neighborhoodatlas.medicine.[facility]/. Last address used for calculation [address] [...] of Assessment Author No 04/27/2018 4:56 PM JELANIT Ra patricia Ramsey RN * Because of a physical, mental, [...] Description 08/26/2025 3:30 PM EST Office Visit [facility] [address] [place] [address] [place] [address] 6 Month Follow Up 08/26/2025 3:40 PM EST Visit (SP) Office Hematology/Oncology [address] [place] [address] Alfonzo Crouch MD [address] [place] [address] 6 Month Follow Up documented as of this encounter Visit Diagnoses Not on filedocumented in this encounter Care Teams Tile Finisher Relationship Specialty Start Date End Date Francisca Wade MD [address] [place] [address] PCP - General Internal Medicine 12/16/24 Jun Arriola DO Physician Hematology 03/26/18 Lorie Ozuna RN [address] [place] [address] Orthopaedic Nurse 03/26/18 Gianna Hodge APRN.CNP [address] [place] [address] Nurse Practitioner Hematology/Oncology 03/26/18 documented as of this encounter
--- OUTSIDE RECORDS SUMMARY | 2025-05-20 17:46 | XMS_ITS | Encounter Summary ---
Author Organization [employer] Address [id number] [address] [place] [address] Care Team Providers Care Call Center Receptionist Name Role Phone Francisca Wade MD Primary Care Provider [phone] Encounter Details Date Type Department Care Team (Late st Contact Info) Description 02/26/2024 Telephone [facility] [address] [place] [address] Ang Garibay MD [address] [place] [address] Social History Tobacco Use Types Packs/Day Years Used Date Smoking Tobacco: Every Day Cigarettes 0.5 20 Smokeless Tobacco: Never Alcohol Use Standard Drinks/Week Comments Not Currently 0 (1 standard drink = 0.6 oz pur e alcohol) [facility] Utilities Answer Date Recorded In the past 12 months has [employer], gas, oil, or water [employer] threatened to shut off services in your home? No 02/03/2024 Social Connection and Isolation Panel [NHANES] A nswer Date Recorded In a typical week, how many times do you talk on the phone with family, friends, or neighbors? Twice a week 02/03/2024 How often do you get together with friends or re latives? Twice a week 02/03/2024 How often do you attend pentecostal or jew serv ices? Never 02/03/2024 Do you belong to any clubs o r organizations such as pentecostal groups, unions, fraternal or athletic groups, or [...] Answer Date Recorded Total Score 2 02/03/2024 [facility] of Occupat ional [facility] - Occupational Stress Questionnaire Answer Date Recorded [...] Recorded Do you need help finding a [facility] career center and/or a training program? No 02/03/2024 Hunger Screening Answer Date Recorded Within the past 12 months we worried whether our food would run out before we got money to buy more. Never True 02/03/2024 Within the past 12 months th e food we bought just didn't last and we didn't have money to get more. Never True 02/03/2024 Purpose - Life Answer Date Recorded I have a purpose and direction in my life. Stron gly Agree 02/03/2024 Sex and Gender Information Value Date Recorded Sex Assigned at Male 08/11/2021 6:01 PM EST Legal Sex Male 10:25 AM EST Gender Identity Male 08/11/2021 6:01 PM EST Sexual Orientation Straight 08/11/2021 6: 01 PM EST documented as of this encounter Miscellaneous Notes * Telephone Encounter - Spencer Coe - 02/26/2024 10:53 AM EDT [facility] the oxycodone script written for the patient was supposedto be dispensed at 32 tabs but the pharmacy only had 25 tabs in stock. They should replenish their stock this afternoon per Tasneem. Patient picked up 25 tabs yesterday 02/24. They need an additional script for the remaining 7 tabs or patient will need another script when he runs out of the original 25 tabs. Tasneem can be reached at [phone] if needed. documented in this encounter Plan of Treatment Upcoming Encounters Date Type Department Care Team (Late st Contact Info) Description 05/21/2025 9:45 AM EDT Office Visit [facility] [address] [place] [address] [place] [address] [address] Jeni Gillis I PA [address] [place] [address] 05/26/2025 3:15 PM EDT Office Visit [facility] [address] [place] [address] [place] [address] [place] [address] Sid Alves MD [address] [place] [address] documented as of this encounter Goals Goal Patient Goal Type Associated Problems Recent Progress Patient-Stated? Author to improve mobility and get home General Yes Citlalli Goode, RN Note: Evaluation of progress towards goal: Participating in therapy <enter goal here> General Yes Chika Ramsey LSW Note: Evaluation of progress towards goal: pt plans to return to [facility] [place] to go home General Yes Connie Ramirez, MORE Note: Evaluation of progress towards goal: participating in therapy documented as of this encounter Visit Diagnoses Not on filedocumented in this encounter Additional Health Concerns Infection Onset Date Last Indicated Resolved Time Respiratory Rule-Out 05/05/2025 05/05/2025 025 6:05 PM EDT Assessment Noted Time PHQ-9 Depression Total Score: 2 02/03/20 24 3:58 PM EDT documented as of this encounter Care Teams Call Center Receptionist Relationship Specialty Start Date End Date Francisca Wade MD [address] [place] [address] PCP - General Internal Medicine 07/18/24 documented as of this encounter
--- OUTSIDE RECORDS SUMMARY | 2025-05-20 17:46 | XMS_ITS | Encounter Summary ---
Author Organization [employer] Address [id number] [address] [place] [address] Care Team Providers Care Caption Writer Name Role Phone Francisca Wade MD Primary Care Provider [phone] Encounter Details Date Type Department Care Team (Late st Contact Info) Description 03/20/2024 Orders Only [facility]/Trauma [facility] Adult Reconstruction [address] [place] [address] Connie Corbin RN Social History Tobacco Use Types Packs/Day Years Used Date Smoking Tobacco: Every Day Cigarettes 0.5 20 Smokeless Tobacco: Never Alcohol Use Standard Drinks/Week Comments Not Currently 0 (1 standard drink = 0.6 oz pur e alcohol) [facility] Utilities Answer Date Recorded In the past 12 months has [employer] electric, gas, oil, or water company threatened [...] week 02/03/2024 How often do you attend hoahaoism or anglican serv ices? Never 02/03/2024 Do you belong to any clubs o r organizations such as hoahaoism groups, unions, fraternal or athletic groups, or [...] Answer Date Recorded Total Score 2 02/03/2024 [facility] [place] of Occupat ional Health - Occupational Stress [...] Recorded Do you need help finding a [facility] career center and/or a training program? No 02/03/2024 Hunger Screening Answer Date Recorded Within the past 12 months we worried whether our food would run out before we got money to buy more. Never True 03/14/2024 Within the past 12 months th e food we bought just didn't last and we didn't have money to get more. Never True 03/14/2024 Purpose - Life Answer Date Recorded I have a purpose and direction in my life. Jereln gly Agree 02/03/2024 Sex and Gender Information [...] Office Visit [facility] [address] [place] [phone] Jeni Gillis PA [address] [place] [address] 05/26/2025 3:15 PM EDT Office Visit [facility] [address] [place] [address] [place] [address] Sid Alves MD [address] [place] [address] documented as of this encounter Goals Goal Patient Goal Type Associated Problems Recent Progress Patient-Stated? Author to improve mobility and get home General Yes Citlalli Goode, RN Note: Evaluation of progress towards goal: Participating in therapy <enter goal here> General Yes Chika Ramsey LSW Note: Evaluation of progress towards goal: pt plans to return to [facility] [place] to [place] General Yes Connie Ramirez, [...] documented as of this encounter Care Teams Caption Writer Relationship Specialty Start Date End Date Francisca Wade MD [address] [place] [address] PCP - General Internal Medicine 07/18/24 documented as of this encounter
--- OUTSIDE RECORDS SUMMARY | 2025-05-20 17:46 | XMS_ITS | Encounter Summary ---
Author Organization [employer] Address [id number] [address] [place] [address] Care Team Providers Care Assistant Program Manager Name Role Phone Francisca Wade MD Primary Care Provider [phone] Encounter Details Date Type Department Care Team (Late st Contact Info) Description 02/23/2024 Telephone [facility]/Trauma and Adult Reconstruction [address] [place] [address] Ang Garibay MD [address] [place] [address] Social History Tobacco Use Types Packs/Day Years Used Date Smoking Tobacco: Every Day Cigarettes 0.5 20 Smokeless Tobacco: Never Alcohol Use Standard Drinks/Week Comments Not Currently 0 (1 standard drink = 0.6 oz pur e alcohol) [facility] Utilities Answer Date Recorded In the past 12 months has [employer], gas, oil, or water [employer] threatened to shut off services in your home? No 02/03/2024 Social Connection and Isolation Panel [NHANES] A nswer Date Recorded In a typical week, how many times do you talk on the phone with family, friends, or neighbors? Twice a week 02/03/2024 How often do you get together with friends or re latives? Twice a week 02/03/2024 How often do you attend bahai or hindu serv ices? Never 02/03/2024 Do you belong to any clubs o r organizations such as bahai groups, unions, fraternal or athletic groups, or [...] Answer Date Recorded Total Score 2 02/03/2024 [facility] of Occupat ional [facility] - Occupational Stress Questionnaire Answer Date Recorded [...] Recorded Do you need help finding a [facility] career center and/or a training program? [...] * Telephone Encounter - Spencer Coe - 02/23/2024 12:19 PM EDT Patient called to go over stat doppler results ordered by Jimmy. Per Jimmy, test was negative, so allis well. Notified patient. Patient still had concerns about his leg swelling. Advised that leg swelling is common with ortho injuries and to give us a call next week if it doesn't get any better. Patient reports conversation with Selma about increasing pain meds from q6hr to q5hr and he said that has been helpful. However he will be out of meds Monday morning. Please send refill for pickup Saturday 02/24 to [facility] in [place] at [address] (only pharmacy on file). * Telephone Encounter - Annmarie Marquez PA-C - 02/23/2024 12:19 PM EDT Doppler negative. Continue to ice and elevate. Refill for oxycodone sent to be filled on Monday02/25/2024. documented in this encounter Plan of Treatment Upcoming Encounters Date Type Department Care Team ([facility] Contact Info) Description 05/21/2025 9:45 AM EDT Office Visit [facility] [address] [place] [address] [address] [facility] [place] [address] Jeni Gillis PA [address] [place] [address] 05/26/2025 3:15 PM EDT Office Visit [facility] [address] [place] [address] [place] [address] Sid Alves MD [address] [place] [address] documented as of this encounter Goals Goal Patient Goal Type Associated Problems Recent Progress Patient-Stated? Author to improve mobility and get home General Yes Citlalli Goode, RN Note: Evaluation of progress towards goal: Participating in therapy <enter goal here> General Yes Chika Ramsey LSW Note: Evaluation of progress towards goal: pt plans to return to [facility]hab [place] to go home General Yes Connie Ramirez, [...] as of this encounter Care Teams Assistant Program Manager Relationship Specialty Start Date End Date Francisca Wade MD [address] [place], [place] [address] PCP - General Internal Medicine 07/18/24 documented as of this encounter
--- OUTSIDE RECORDS SUMMARY | 2025-05-20 17:46 | XMS_ITS | Encounter Summary ---
Author Organization [facility] Address [facility] [place] [address] Care Team Providers Care Production Expediter Name Role Phone Ander Arriolaothy Artem DO Unavailable [phone] Lorie Ozuna RN Unavailable [phone] Gianna Hodge APRN.GREASE BUFFER Unavailable [phone] Francisca Wade MD Primary Care Provider [phone] Source Comments In the event this information is protected by the Federal Confidentiality of Alcohol and Drug AbusePatient Records regulations: The Federal rules restrict any use of the information to criminally investigate or prosecute any alcohol or drug abuse patient.[facility] Encounter Details Date Type Department Care Team (Late st Contact Info) Description 01/13/2025 Patient Msg Pain Management [address] [place] [address] Alistair Mckeon MD [address] [place] [address] EMG Social History Tobacco Use Types Packs/Day Years [...] is lower risk 5 11/22/2024 Data from: https://www.neighborhoodatlas.[facility]/. Last address used for calculation [address] 11/22/2024 Sex and Gender Information Value [...] PM JELANIT Ra patricia Ramsey RN * Do you [...] 4:56 PM EDT Ra patricia Ramsey RN documented as of this encounter Mental [...] Description 08/26/2025 3:30 PM EST Office Visit [facility] [address] [place] [address] [place] [address] 6 Month Follow Up 08/26/2025 3:40 PM EST Visit (SP) Office Hematology/Oncology [address] [facility] [place] [address] Alfonzo Crouch MD [address] [facility] [place] [address] 6 Month Follow Up documented as of this encounter Visit Diagnoses Not on filedocumented in this encounter Care Teams Production Expediter Relationship Specialty Start Date End Date Francisca Wade MD [address] [place] [address] PCP - General Internal Medicine 12/16/24 Jun Arriola DO Physician Hematology 03/26/18 Lorie Ozuna RN [address] [facility] [place] [address] Stenographer 03/26/18 Gianna Hodge APRN.GREASE BUFFER [address] [facility] [place] [address] Nurse Practitioner Hematology/Oncology 03/26/18 documented as of this encounter
--- OUTSIDE RECORDS SUMMARY | 2025-05-20 17:46 | XMS_ITS | Encounter Summary ---
Author Organization [employer] Address [id number] [address] [place] [address] Care Team Providers Care Russian Language Instructor Name Role Phone Francisca Wade MD Primary Care Provider [phone] Encounter Details Date Type Department Care Team (Late st Contact Info) Description 02/19/2024 Telephone [facility] [address] [place] [address] Connie Corbin, MORE Social History Tobacco Use Types Packs/Day Years Used Date Smoking Tobacco: Every Day Cigarettes 0.5 20 Smokeless Tobacco: Never Alcohol Use Standard Drinks/Week Comments Not Currently 0 (1 standard drink = 0.6 oz pur e alcohol) [facility] Utilities Answer Date Recorded In the past 12 months has [employer] electric, gas, oil, or water company threatened [...] How often do you attend bahai or mandaen serv ices? Never 02/03/2024 Do you belong [...] Answer Date Recorded Total Score 2 02/03/2024 [facility] of Occupat ional Health - Occupational Stress [...] encounter Miscellaneous Notes * Telephone Encounter - Connie Corbin RN - 02/19/2024 10:47 AM EDT Requesting refill on his Oxycodone. Please send to [facility] in [place] (on file) * Telephone Encounter - Annmarie Marquez PA-C - 02/19/2024 10:47 AM EDT Refill for oxycodone 5 mg q.6 hours and the patient's pharmacy documented in this encounter Plan of Treatment Upcoming Encounters Date Type Department Care Team (Late st Contact Info) Description 05/21/2025 9:45 AM EDT Office Visit [facility] [address] [place] [address] [place] [phone] Jeni Gillis I PA [address] [place] [address] 05/26/2025 3:15 PM EDT Office Visit [facility] [address] [place] [address] [place] [phone] Sid Alves MD [address] [place] [address] documented as of this encounter Goals Goal Patient Goal Type Associated Problems Recent Progress Patient-Stated? Author to improve mobility and get home General Yes Citlalli Goode, RN Note: Evaluation of progress towards goal: Participating in therapy <enter goal here> General Yes Chika Ramsey LSW Note: Evaluation of progress towards goal: pt plans to return to [facility] [place] [place] to go [place] General Yes Connie Ramirez, [...] documented as of this encounter Care Teams Russian Language Instructor Relationship Specialty Start Date End Date Francisca Wade MD [address] [place] [address] PCP - General Internal Medicine 07/18/24 documented as of this encounter
--- OUTSIDE RECORDS SUMMARY | 2025-05-20 17:46 | XMS_ITS | Encounter Summary ---
Author Organization [facility] tem Address [id number] [address] [place] [address] Care Team Providers Care Chuck Boner Name Role Phone Francisca Wade MD Primary Care Provider [phone] Encounter Details Date Type Department Care Team (Late st Contact Info) Description 03/21/2025 Results Follow-Up [facility] [address] [place] [address] [place] [address] [place] [address] Jeni Gillis I PA [address] [place] [address] Prostatic specific antigen, diagnostic Social History Tobacco Use Types Packs/Day Years Used Date Smoking Tobacco: Every Day Cigarettes 0.5 55.5 Started: 12/06/1989 Smokeless Tobacco: Never Alcohol Use Standard Drinks/Week Comments Not Currently 0 (1 standard drink = 0.6 oz pur e alcohol) [facility] Utilities Answer Date Recorded In the past 12 months has [employer], gas, oil, or water [employer] threatened to shut off services in your home? No 02/03/2024 Social Connection and Isolation Panel [NHANES] A nswer Date Recorded In a typical week, how many times do you talk on the phone with family, friends, or neighbors? Twice a week 02/03/2024 How often do you get together with friends or re latives? Twice a week 02/03/2024 How often do you attend zoroastrian or jehovah's witness serv ices? Never 02/03/2024 Do you belong to any clubs o r organizations such as zoroastrian groups, unions, fraternal or athletic groups, or [...] Answer Date Recorded Total Score 2 02/03/2024 [facility] Occupat ional Health - Occupational Stress [...] Recorded Do you need help finding a [facility] career center and/or a training program? No 02/03/2024 Hunger Screening Answer Date Recorded Within the past 12 months we worried whether our food would run out before we got money to buy more. Never True 03/24/2025 Within the past 12 months th e food we bought just didn't last and we didn't have money to get more. Never True 03/24/2025 Purpose - Life Answer Date Recorded I [...] EDT Office Visit [facility] [address] [place], [place] [phone] Jeni Gillis PA [address] [place] [phone] 05/26/2025 3:15 PM EDT Office Visit [facility] [address] [place] [phone] Sid Alves MD [address] [place] [phone] documented as of this encounter Goals Goal Patient Goal Type Associated Problems Recent Progress Patient-Stated? Author to improve mobility and get home General Yes Citlalli Goode, RN Note: Evaluation of progress towards goal: Participating in therapy <enter goal here> General Yes Chika Ramsey LSW Note: Evaluation of progress towards goal: pt plans to return to [facility] [place] [place] General Yes Connie Ramirez, RN Note: Evaluation of progress towards goal: [...] documented as of this encounter Care Teams Chuck Boner Relationship Specialty [place] [address] [place] [id number] PCP - General Internal Medicine 07/18/24 documented as of this encounter
--- OUTSIDE RECORDS SUMMARY | 2025-05-20 17:46 | XMS_ITS | Encounter Summary ---
Author Organization [employer] tem Address [id number] [address] [place] [address] Care Team Providers Care Maintainer Central Office Name Role Phone Francisca Wade MD Primary Care Provider [phone] Encounter Details Date Type Department Care Team (Late st Contact Info) Description 04/24/2025 [facility] [address] [place] [address] Adama Yadav CMA Social History Tobacco Use Types Packs/Day Years Used Date Smoking Tobacco: Every Day Cigarettes 0.5 55.5 Started: 12/06/1989 Smokeless Tobacco: Never Alcohol Use Standard Drinks/Week Comments Not Currently 0 (1 standard drink = 0.6 oz pur e alcohol) [facility] Utilities Answer Date Recorded In the past 12 months has [employer], gas, oil, or water [employer] threatened to shut off services in your home? No 02/03/2024 Social Connection and Isolation Panel [NHANES] A nswer Date Recorded In a typical week, how many times do you talk on the phone with family, friends, or neighbors? Twice a week 02/03/2024 How often do you get together with friends or re latives? Twice a week 02/03/2024 How often do you attend confucianist or rastafarian serv ices? Never 02/03/2024 Do you belong to any clubs o r organizations such as confucianist groups, unions, fraternal or athletic groups, or [...] Answer Date Recorded Total Score 2 02/03/2024 [facility] Occupat ional Health - Occupational Stress [...] Recorded Do you need help finding a [facility] career center and/or a training program? No [...] encounter Miscellaneous Notes * Telephone Encounter - Adama Yadav CMA - 04/24/2025 2:02 PM EDT Patient called stating he was in the Er last night and they placed a catheter in but it was removedbefore he left. He was checked for kidney stones and that came back negative. He said he is having the horrible pain again that made him got to the ER last night and he has not be able to urinate, hesaid he had a small void this morning. I advised patient if he is not urinating and in that much pain he should go back to ER and that we dont have any providers at the [place] office today documented in this encounter Plan of Treatment Upcoming Encounters Date Type Department Care Team (Late st Contact Info) Description 05/21/2025 9:45 AM EDT Office Visit [facility] [address] [place] [address] [place] [address] Jeni Gillis PA [address] [place] [id number] 05/26/2025 3:15 PM EDT Office Visit [facility] [address] [place] [address] [place] [address] Sid Alves MD [address] [place] [address] documented as of this encounter Goals Goal Patient Goal Type Associated Problems Recent Progress Patient-Stated? Author to improve mobility and get home General Yes Citlalli Goode, RN Note: Evaluation of progress towards goal: Participating in therapy <enter goal here> General Yes Chika Ramsey LSW Note: Evaluation of progress towards goal: pt plans to return to [facility] [place] to [place] General Yes Connie Ramirez RN Note: Evaluation of progress towards goal: participating in therapy documented as of this encounter Visit Diagnoses Not on filedocumented in this encounter Additional Health Concerns Infection Onset Date Last Indicated Resolved Time Respiratory Rule-Out 05/05/2025 05/05/2025 025 6:05 PM EDT Assessment Noted Time PHQ-9 Depression Total Score: 2 02/03/20 24 3:58 PM EDT A Body Mass Index follow-up plan has been documented for the patient 07/18/2024 1:42 PM EST documented as of this encounter Care Teams Maintainer Central Office Relationship Specialty Start Date End Date Francisca Wade MD [address] [place] [address] PCP - General Internal Medicine 07/18/24 documented as of this encounter
--- OUTSIDE RECORDS SUMMARY | 2025-05-20 17:46 | XMS_ITS | Encounter Summary ---
Author Organization [employer] tem Address [id number] [address] [place] [address] Care Team Providers Care Screen Printing Machine Operator Helper Name Role Phone Francisca Wade MD Primary Care Provider [phone] Encounter Details Date Type Department Care Team (Late st Contact Info) Description 03/18/2024 Telephone [facility] [address] [place] [address] Ang Garibay MD [address] [place] [address] Social History Tobacco Use Types Packs/Day Years Used Date Smoking Tobacco: Every Day Cigarettes 0.5 20 Smokeless Tobacco: Never Alcohol Use Standard Drinks/Week Comments Not Currently 0 (1 standard drink = 0.6 oz pur e alcohol) [facility] Utilities Answer Date Recorded In the past 12 months has [employer] gas, oil, or water [employer] threatened to shut off services in your home? No 02/03/2024 Social Connection and Isolation Panel [NHANES] A nswer Date Recorded In a typical week, how many times do you talk on the phone with family, friends, or neighbors? Twice a week 02/03/2024 How often do you get together with friends or re latives? Twice a week 02/03/2024 How often do you attend worship or methodist serv ices? Never 02/03/2024 Do you belong to any clubs o r organizations such as worship groups, unions, fraternal or athletic groups, or [...] Answer Date Recorded Total Score 2 02/03/2024 [facility] - Occupational Stress Questionnaire Answer Date Recorded [...] Recorded Do you need help finding a [facility] career center and/or a training [...] encounter Miscellaneous Notes * Telephone Encounter - Gianna Aden - 03/18/2024 8:41 AM EDT Pt calling for refill of oxycodone. Using [facility] in [place] * Telephone Encounter - Annmarie Marquez PA-C - 03/18/2024 8:41 AM EDT Prescription sent to pharmacy. documented in this encounter Plan of Treatment Upcoming Encounters Date Type Department Care Team (Late st Contact Info) Description 05/21/2025 9:45 AM EDT Office Visit [facility] [address] [place] [address] [place] [address] [address] Jeni Gillis PA [address] [place] [phone] 05/26/2025 3:15 PM EDT Office Visit [facility] [address] [place] [address] [place] [address] [address] [place] [address] Sid Alves MD [address] [place] [phone] documented as of this encounter Goals Goal Patient Goal Type Associated Problems Recent Progress Patient-Stated? Author to improve mobility and get home General Yes Citlalli Goode, RN Note: Evaluation of progress towards goal: Participating in therapy <enter goal here> General Yes Chika Ramsey LSW Note: Evaluation of progress towards goal: pt plans to return to [facility] [place] General Yes Connie Ramirez, [...] documented as of this encounter Care Teams Screen Printing Machine Operator Helper Relationship Specialty Start Date End Date Francisca Wade MD [address] [place] [address] PCP - General Internal Medicine 07/18/24 documented as of this encounter
--- OUTSIDE RECORDS SUMMARY | 2025-05-20 17:46 | XMS_ITS | Encounter Summary ---
Author Organization [employer] tem Address [id number] [address] [place] [address] Care Team Providers Care Police [employer] Program Coordinator Name Role Phone Francisca Wade MD Primary Care Provider [phone] Encounter Details Date Type Department Care Team (Late st Contact Info) Description 12/04/2024 [facility]phone [facility] [address] [place] [address] [place] [address] Jeni Gillis PA [address] [place] [address] Social History Tobacco Use Types Packs/Day Years Used Date Smoking Tobacco: Every Day Cigarettes 0.5 44.7 Started: 12/06/1989; Last attempted to quit: 08/21/2014 Smokeless Tobacco: Never Alcohol Use Standard Drinks/Week Comments Not Currently 0 (1 standard drink = 0.6 oz pur e alcohol) [facility] Utilities Answer Date Recorded In the past 12 months has [employer], gas, oil, or water [employer] threatened to shut off services in your home? No 02/03/2024 Social Connection and Isolation Panel [NHANES] A nswer Date Recorded In a typical week, how many times do you talk on the phone with family, friends, or neighbors? Twice a week 02/03/2024 How often do you get together with friends or re latives? Twice a week 02/03/2024 How often do you attend adventism or catholic serv ices? Never 02/03/2024 Do you belong to any clubs o r organizations such as adventism groups, unions, fraternal or athletic groups, or [...] Answer Date Recorded Total Score 2 02/03/2024 [facility] of Occupat ional Health - Occupational [...] Recorded Do you need help finding a [facility] career center and/or a training program? No 02/03/2024 Hunger Screening Answer Date Recorded Within the past 12 months we worried whether our food would run out before we got money to buy more. Never True 12/04/2024 Within the past 12 months th e food we bought just didn't last and we didn't have money to get more. Never True 12/04/2024 Purpose - Life Answer Date Recorded I [...] encounter Miscellaneous Notes * Telephone Encounter - HUBERT Wright - 12/04/2024 4:10 PM EDT Please schedule him for a cystoscopy under MAC anesthesia with Dr. Alves in [place]. Diagnosis: Difficulty urinating * Please schedule no sooner than 2 months * Telephone Encounter - Juliana Gottlieb - 12/04/2024 4:10 PM EDT Spoke to pt 12/19/2024 Pat macon 01/15/2025 @ 130pm (PFC) [place] 01/29/2025 @ 830am arrive @ 630am Pt aware info sent to [facility] and mailed 12/19/2024 Dr Alves please review pt is scheduled with you documented in this encounter Plan of Treatment Upcoming Encounters Date Type Department Care Team (Late st Contact Info) Description 05/21/2025 9:45 AM EDT Office Visit [facility] [address] [place] [address] [place] [address] Jeni Gillis PA [address] [place] [address] 05/26/2025 3:15 PM EDT Office Visit [facility] [address] [place] [address] [place] [phone] Sid Alves MD [address] [place] [address] documented as of this encounter Goals Goal Patient Goal Type Associated Problems Recent Progress Patient-Stated? Author to improve mobility and get home General Yes Citlalli Goode, RN Note: Evaluation of progress towards goal: Participating in therapy <enter goal here> General Yes Chika Ramsey LSW Note: Evaluation of progress towards goal: pt plans to return [place] [facility] [place] General Yes Connie Ramirez, [...] documented as of this encounter Care Teams Police [employer] Program Coordinator Relationship Specialty Start Date End Date Francisca Wade MD [address] [place] [address] PCP - General Internal Medicine 07/18/24 documented as of this encounter
--- OUTSIDE RECORDS SUMMARY | 2025-05-20 17:46 | XMS_ITS | Patient Health Record ---
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 Name Role Phone Francisca Wade Primary Care Provider Savanah Becker Unavailable [phone] Allergies Allergen (clinical drug ingredient) Drug/Non Drug Allergy documented on EMR Reaction Allergy Type Onset Date Status insulin glargine Basaglar KwikPen nausea and vomiting Drug Allergy Active Results Component Value Reference Range Notes POCT A1C Reviewed date:10/29/2024 02:47:15 PM Interpretation: Performing Lab: Notes/Report: LIPID PANEL WITH REFLEX TO D IRECT LDL Reviewed date:01/28/2025 08:28:07 AM Interpretation: Performing Lab: Notes/Report: CHOLESTEROL 149 100-199 mg/dL TRIGLYCERIDES 157 20-149 mg/dL VLDL-CHOL, CALCULATED 31 <30 mg/dL HDL-CHOL 38 >=40 mg/dL LDL-CHOL, CALCULATED 80 <130 mg/dL ADULT LDL CHOLESTEROL CLASSIFICATION <100mg/dL Optimal 100-129mg/dL Near/Ab ove Optimal 130-159mg/dL Borderl ine High >160mg/dL High Risk Desirable range <100 mg/dL for patients with CHD or diabetes and <70 mg/dL for diabetic patients with known heart disease. Direct LDL is recommended for patients with triglycerides >400. LDL/HDL 2.1 <5.0 LDL/HDL RATIO MALE FEMALE below average risk <2.3 <2.3 average risk <5.0 <4.1 moderate risk <7.1 <5.6 high risk >7.1 >5.6 CHOL/HDL 3.9 2.0-4.5 UNLESS OTHERWISE INDICATED, ALL TESTING PERFORMED AT: [facility] [employer]. [address] [place] [address] DIRECTOR OF DIAGNOSTIC IMAGING: PAULINE ODONNELL M.D. CLIA NUMBER [id number] CAP ACCREDITATION AUID [id number] URINE CULTURE Reviewed date:10/24/2024 09:52:29 AM Interpretation: Performing Lab: Notes/Report: URINE CULTURE CULTURE/SENS,URINE REPORT STATUS: FINAL SOURCE: URINE CULTURE: NO GROWTH POCT A1C Reviewed date:01/27/2025 03:41:53 PM Interpretation: Performing Lab: Notes/Report: XR chest 1V Reviewed date:03/10/2025 07:33:19 AM Interpretation: Performing Lab: Notes/Report: Source Facility: [place] [address] XRay Report Signed Patient: RUTH TRACEY MR#: [id number] : 1970 Acct:[id number] Age/Sex: 54 / M ADM Date: 03/08/25 Loc: ER Attending Dr: Ordering Physician: Ruth Russell M.D. Date of Service: 03/08/25 Procedure(s): XR chest 1V Accession Number(s): [id number] cc: Francisca Wade M.D.; Ruth Russell M.D. [place] [address] Patient Name: RUTH TRACEY MRN: [id number] date: 1970 Sex: M Assigned Patient Location: ER Current Patient Location: ER Accession/Order Number: [id number] Exam Date: 03/08/2025 13:57 Report Date: 03/08/2025 13:57 At the request of: RUTH RUSSELL MD Procedure: XR chest 1V Single view chest: CLINICAL HISTORY: cough COMPARISON: Chest 05/13/2020 FINDINGS: The heart is normal in size. The lungs are clear. The pulmonary vasculature is normal. Mediastinum and hilar regions are unremarkable. No pleural effusions are seen. Visualized bones are intact. XR/XR chest 1V IMPRESSION: NEGATIVE CHEST. Impression dictated by: James Knowles Jr., D.O. 03/08/2025 1:57 PM Dictation Location: [place] [address] Electronically authenticated by: [id number] Y Date: 03/08/2025 13:57 Dictated By: James Knowles M.D. Signed By: 03/08/25 1400 DD/ 1357 TD/TT: Critical Care Nurse: XR lumbar spine 2-3V Reviewed date:03/10/2025 07:33:05 AM Interpretation: Performing Lab: Notes/Report: Source Facility: [place] [address] XRay Report Signed Patient: RUTH TRACEY MR#: [id number] : 1970 Acct:[id number] Age/Sex: 54 / M ADM Date: 03/08/25 Loc: ER Attending Dr: Ordering Physician: Ruth Russell M.D. Date of Service: 03/08/25 Procedure(s): XR lumbar spine 2-3V Accession Number(s): [id number] cc: Francisca Wade M.D.; Ruth Russell M.D. [place] [address] Patient Name: RUTH TRACEY MRN: [id number] date: 1970 Sex: M Assigned Patient Location: ER Current Patient Location: ER Accession/Order Number: [id number] Exam Date: 03/08/2025 14:16 Report Date: 03/08/2025 14:16 At the request of: RUTH RUSSELL MD Procedure: XR lumbar spine 2-3V LUMBAR SPINE - 3 views CLINICAL HISTORY: pain, slipped COMPARISON: None FINDINGS: Vertebral body heights appear maintained. Moderate disc space narrowing L2-L3 and L5-S1 with endplate and diffuse facet joint degenerative change. SI joints also demonstrate degenerative change. XR/XR lumbar spine 2-3V IMPRESSION: DEGENERATIVE CHANGES INVOLVING LUMBAR SPINE WITH MODERATE DISC SPACE NARROWING L2-L3 AND L5-S1. Impression dictated by: James Knowles Jr., D.O. 03/08/2025 2:16 PM Dictation Location: [place] [address] Electronically authenticated by: [id number] Y Date: 03/08/2025 14:16 Dictated By: James Knowles M.D. Signed By: 03/08/25 1419 DD/ 1416 TD/TT: Critical Care Nurse: CT abdomen pelvis w con Reviewed date:04/24/2025 10:29:23 AM Interpretation: Performing Lab: Notes/Report: Source Facility: [place] [address] CT Scan Report Signed Patient: RUTH TRACEY MR#: [id number] : 1970 Acct:[id number] Age/Sex: 54 / M ADM Date: 04/23/25 Loc: ER Attending Dr: Ordering Physician: Adama Nicholas Date of Service: 04/23/25 Procedure(s): CT abdomen pelvis w con Accession Number(s): [id number] cc: Francisca Wade M.D. [place] [address] Patient Name: RUTH TRACEY MRN: [id number] date: 1970 Sex: M Assigned Patient Location: ER Current Patient Location: ER Accession/Order Number: [id number] Exam Date: 04/23/2025 20:49 Report Date: 04/23/2025 21:31 At the request of: ADAMA GASPAR Procedure: CT abdomen pelvis w con CT ABDOMEN AND PELVIS WITH INTRAVENOUS CONTRAST: CLINICAL HISTORY: low ab pain, hx colon cancer ; RLQ COMPARISON: None TECHNIQUE: Spiral images were obtained through the abdomen and pelvis following the administration of intravenous contrast. This CT exam was performed using one or more following dose reduction techniques: Automated exposure control, adjustment of the mA and/or kV according to patient size, or use of iterative reconstruction technique. FINDINGS: Lung Bases: [Lingular atelectasis or scarring. Lungs otherwise grossly clear.] Organs:Lobular/nodular contour liver worrisome for hepatocellular disease. Trace gallstones versus sludge. Otherwise the gallbladder, spleen, adrenals, kidneys, and pancreas are unremarkable.[ GI: Postsurgical changes left colon splenic flexure with anastomotic suture line. [id number] stool burden. No definite bowel obstruction.[Unremarkable appendix Pelvis:[Bladder unremarkable. Prostate unremarkable.] Peritoneum/Retroperitoneum:No free air or free fluid. No suspicious adenopathy.[ Abd wall/Bones:Degenerative changes greatest about impression L3. Likely chronic. Facet arthropathy lumbosacral junction. No suspicious osseous lesion.[ CT/CT abdomen pelvis w con IMPRESSION: Negative for acute inflammatory process or bowel obstruction Nodular contour of the liver worrisome for underlying hepatocellular disease. Impression dictated by: Thierry Kuo M.D. 04/23/2025 9:31 PM Dictation Location: [place] [address] Electronically authenticated by: [id number] Y Date: 04/23/2025 21:31 Dictated By: Thierry Kuo M.D. Signed By: 04/23/252132 DD/ 30 TD/TT: Critical Care Nurse: URINALYSIS - REFLEX CULTURE/ SENS Reviewed date:10/24/2024 09:52:48 AM Interpretation: Performing Lab: Notes/Report: PH 6.0 5.0-8.0 SP GRAVITY 1.024 1.005-1.030 APPEARANCE CLEAR CLEAR COLOR Dark Yellow YELLOW PROTEIN TRACE NEGATIVE GLUCOSE NEGATIVE NEGATIVE KETONES TRACE NEGATIVE BILIRUBIN NEGATIVE NEGATIVE OCCULT BLOOD NEGATIVE NEGATIVE LEUKO JULIANA TRACE NEGATIVE NITRITE NEGATIVE NEGATIVE UROBILINOGEN <2 <2 mg/dL PSA, TOTAL, 3RD GENERATION Reviewed date:10/24/2024 09:52:53 AM Interpretation: Performing Lab: Notes/Report: PSA, TOTAL 0.236 0-4.00 ng/mL Method: Ce Ra ECLIA PSA levels should not be interpreted as absolute evidence of disease, however it is widely accepted as an adjunctive test in the management of prostate cancer patients. Values obtained with different assay methods or kits can not be used interchangeably. A detectable PSA following radical prostatectomy is associated with eventual clinical disease recurrence in some, but not all patients. It may also be due to the presence of benign glands. The AUA defines biochemical recurrence as an initial PSA value >=0.2 ng/ml followed by a subsequent confirmatory PSA value >=0.2 ng/ml. UNLESS OTHERWISE INDICATED, ALL TESTING PERFORMED AT: [facility] [address] [place] [address] DIRECTOR OF DIAGNOSTIC IMAGING: PAULINE ODONNELL M.D. [place] NUMBER [id number] CAP ACCREDITATION AUID [id number] COMPREHENSIVE METABOLIC PANE L WITH GFR Reviewed date:10/24/2024 09:52:37 AM Interpretation: Performing Lab: Notes/Report: GLUCOSE 143 65-125 mg/dL BUN 13 6-20 mg/dL CALCIUM 9.6 8.6-10.5 mg/dL CREATININE, BLOOD 1.02 0.67-1.30 mg/dL eGFR (2020 CKD-EPI) 86 >59 mL/min/1.73m2 SODIUM 143 135-148 mmol/L POTASSIUM 4.1 3.5-5.4 mmol/L CHLORIDE 100 96-107 mmol/L CO2 22 18-32 mmol/L ANION GAP 21 7-16 mmol/L T. BILIRUBIN 0.5 <1.3 mg/dL ALK PHOS 81 39-118 U/L AST-SGOT 16 9-50 U/L ALT-SGPT <5 5-41 U/L T. PROTEIN 7.6 6.0-8.3 g/dL ALBUMIN 5.0 3.5-5.2 g/dL UDS Colonoscopy Reviewed date:12/30/2024 05:27:09 PM Interpretation: Performing Lab: Notes/Report: DRUGS OF ABUSE 7 PANEL URINE - SCREEN REFLEX TO CONFIRMATION Reviewed date:06/11/2024 09:45:28 AM Interpretation: Performing Lab: Notes/Report: Oxidant <=200 mg/L Creatinine,Urinary >=20 mg/dL Phencyclidine 25 ng/mL Oxycodone 100 ng/mL Opiates 300 ng/mL THC(Marijuana) 20 ng/mL Cocaine 150 ng/mL Benzodiazepines 100 ng/mL Barbiturates 200 ng/mL Amphetamines 300 ng/mL CUTOFFS FOR DRUG SCREEN TESTING: AMPHETAMINES See Note Confirmation to follow. BARBITURATES See Note Confirmation to follow. BENZODIAZEPINE NEGATIVE COCAINE NEGATIVE THC (CANNABIS) See Note Confirmation to follow. OPIATES NEGATIVE PHENCYCLIDINE NEGATIVE OXYCODONE NEGATIVE CREATININE,URINARY 250.7 OXIDANT 94 AMPHETAMINES,QUANTITATIVE,UR INE Reviewed date:06/11/2024 09:43:42 AM Interpretation: Performing Lab: Notes/Report: Amphetamine Negative 100 ng/mL Methamphetamine Negative 100 ng/mL Testing Performed By: [facility] CLIA: [id number], [address] [place] [address] BETSY FIERRO, Ph.D. - DIRECTOR OF DIAGNOSTIC IMAGING CAP: [id number] AUI-ID: [id number] THC CONF Reviewed date:06/11/2024 09:43:29 AM Interpretation: Performing Lab: Notes/Report: THC 68.5 10 ng/mL Testing Performed By: [facility] CLIA: [id number] [address], [address] [place] [address] BETSY FIERRO, Ph.D. - DIRECTOR OF DIAGNOSTIC IMAGING CAP: [id number] AUI-ID: [id number] UNLESS OTHERWISE INDICATED, ALL TESTING PERFORMED AT: [facility] [address] [place] [address] DIRECTOR OF DIAGNOSTIC IMAGING: PAULINE ODONNELL M.D. CLIA NUMBER [id number] CAP ACCREDITATION AUID [id number] Changes in testing location may be associated with reference range changes for a number of analytes. Please review reference intervals carefully. BARBITURATES,QUANTITATIVE,UR INE Reviewed date:06/11/2024 09:43:52 AM Interpretation: Performing Lab: Notes/Report: Amobarbital Negative 100 ng/mL Butalbital Negative 100 ng/mL Phenobarbital Negative 100 ng/mL Secobarbital Negative 100 ng/mL Testing Performed By: [facility] CLIA: [id number] [address], [address] [place] [address] BETSY FIERRO, Ph.D. - DIRECTOR OF DIAGNOSTIC IMAGING CAP: [id number] AUI-ID: [id number] KNEE RT 1 OR 2 VWS Reviewed date:06/03/2024 04:03:13 PM Interpretation: Performing Lab: Notes/Report: RESULTS BELOW History: Pain LIPID PANEL WITH REFLEX TO D IRECT LDL Reviewed date:08/27/2024 02:15:52 PM Interpretation: Performing Lab: Notes/Report: CHOLESTEROL 213 100-199 mg/dL TRIGLYCERIDES 245 20-149 mg/dL VLDL-CHOL, CALCULATED 49 <30 mg/dL HDL-CHOL 33 >=40 mg/dL LDL-CHOL, CALCULATED 131 <130 mg/dL ADULT LDL CHOLESTEROL CLASSIFICATION <100mg/dL Optimal 100-129 Near/Ab ove Optimal 130-159mg/dL Borderl ine High >160mg/dL High Risk Desirable range <100 mg/dL for patients with CHD or diabetes and <70 mg/dL for diabetic patients with known heart disease. Direct LDL is recommended for patients with triglycerides >400. LDL/HDL 4.0 <5.0 LDL/HDL RATIO MALE FEMALE below average risk <2.3 <2.3 average risk <5.0 <4.1 moderate risk <7.1 <5.6 high risk >7.1 >5.6 CHOL/HDL 6.5 2.0-4.5 MICROALBUMIN RANDOM SPEC Reviewed date:08/27/2024 01:43:50 PM Interpretation: Performing Lab: Notes/Report: INTERPRETATIVE GUIDE NORMAL........................ 0-29 MODERATELY INCREASED.......... 30-300 SEVERELY INCREASED............ >300 UNLESS OTHERWISE INDICATED, ALL TESTING PERFORMED AT: [facility] [address] [place] [address] DIRECTOR OF DIAGNOSTIC IMAGING: PAULINE ODONNELL M.D. CLIA NUMBER [id number] CAP ACCREDITATION AUID [id number] CREATININE,UR 76.4 NOT ESTAB mg/dL Reference interval for random urine samples has not been established. MICROALBUMIN 3.8 Note: Test name is changed to Urine Albumin from Microalbumin in accordance with ADA and NFK Guidelines, and Albumin/Creatinine ratio reference interval reflects those Guidelines. Analytic methodology is unchanged. No reference interval for Random Urine Albumin is available. MICROALB/CREAT RATIO 5 <30 mG/G COMPREHENSIVE METABOLIC PANE L WITH GFR Reviewed date:08/27/2024 01:43:40 PM Interpretation: Performing Lab: Notes/Report: GLUCOSE 117 70-100 mg/dL BUN 8 6-20 mg/dL CALCIUM 9.8 8.6-10.5 mg/dL CREATININE, BLOOD 0.79 0.67-1.30 mg/dL eGFR (2020 CKD-EPI) 104 >59 mL/min/1.73m2 SODIUM 139 135-148 mmol/L POTASSIUM 4.3 3.5-5.4 mmol/L CHLORIDE 98 96-107 mmol/L CO2 26 18-32 mmol/L ANION GAP 15 7-16 mmol/L T. BILIRUBIN 0.4 <1.3 mg/dL ALK PHOS 77 39-118 U/L AST-SGOT 16 9-50 U/L ALT-SGPT 9 5-41 U/L T. PROTEIN 7.3 6.0-8.3 g/dL ALBUMIN 4.6 3.5-5.2 g/dL POCT A1C Reviewed date:08/01/2024 02:58:15 PM Interpretation: Performing Lab: Notes/Report: Reason For Referral Reason chronic back pain wi th new worsening, right sided radiculopathy Diagnosis 1 Low back pain (M54.5 0) Referral Organization Main Referring Provider First Name [facility] Referring Provider Last Name [facility] Referring Provider Speciality Internal edicine Referred Provider [facility] Referred Provider Specialty Spine Specia list General Notes Gaby Hare 09:49:57 AM >Per [facility] pt is scheduled for 08/07/24. Referral Priority Routine Referral Appointment Date 07/18/2024 Reason already on flomax bu t hard to urinate Diagnosis 1 Difficulty urinating (R39.198) Referral Organization Main Referring Provider First Name [facility] Referring Provider Last Name [facility] Referring Provider Speciality Internal edicine Referred Provider [facility] Referred Provider Specialty Urology General Notes Cherry Caal 09:06:13 AM >{ {TOFIRSTNAME}} This is [facility] following up on an outstanding referral that was ordered by your provider. Please call our office at , so we can _update our records.Man Aurora 10/24/2024 11:22:27 AM >Patient is scheduled for 12/04/2024 @3:15pm., Liz Mead 12/24/2024 01:34:22 PM >note in chart Referral Priority Routine Referral Appointment Date 12/04/2024 Medications Medication SIG (Take, Route, Frequency, Duration) Notes Start Date End Date Status Blood Glucose Test - 1 Strip Used Twice daily to check sugar; Duration: 90 days -whatever brand insurance covers -increase in number of tests per day 08/31/2022 Active Ventolin HFA 108 (90 Base) MCG/ACT 2 puff as needed Inhalation every 4 hrs; Duration: 30 days Active Fiasp FlexTouch 100 UNIT/ML INJECT 18 UNITS UNDER THE SKIN WITH MEALS; Duration: 30 Active predniSONE 50 MG 1 tablet with food or milk Orally Once a day; Duration: 5 day(s) 05/16/2025 Active Percocet 5-325 MG 1 tablet as needed Orally every 12 hrs; Duration: 3 days 12/11/2024 Active Losartan Potassium 50 MG TAKE 1 TABLET B Y MOUTH DAILY; Duration: 90 Active Citalopram Hydrobromide 40 MG 1 tablet Orally Once a day; Duration: 90 days Active Ozempic (0.25 or 0.5 MG/DOSE) 2 MG/3ML INJECT 0.5 MG UNDER THE SKIN ONCE A WEEK DIRECTED; Duration: 28 Active Ibuprofen 800 MG Oral; Duration: 30 Days Active Dexcom G7 Sensor - as directed once every 10 days; Duration: 90 10/28/2024 Active Tamsulosin HCl 0.4 MG TAKE 1 CAPSULE BY MOUTH EVERY DAY; Duration: 90 Active Tresiba FlexTouch 100 UNIT/ML 40 units injected Subcutaneous Once a day; Duration: 37 days as needed Active DULoxetine HCl 30 MG Oral; Duration: 30 Days Active Fenofibrate 160 MG TAKE 1 TABLET BY MOUTH EVERY DAY; Duration: 90 Active Jentadueto 2.5-1000 MG TAKE 1 TABLET BY MOUTH TWICE DAILY WITH MEALS; Duration: 90 Active Atorvastatin Calcium 40 MG TAKE 1 TABLET BY MOUTH DAILY; Duration: 90 Active Sucralfate 1 GM 1 tablet on an empty stomach Orally three times daily Active hydroCHLOROthiazide 25 MG TAKE 1 TABLET BY MOUTH DAILY IN THE MORNING; Duration: 90 Active Blood Glucose Meter 1 Meter Given One time. Used to check blood sugar daily; Duration: 30 days -whatever brand insurance covers 08/31/2022 Active traZODone HCl 50 MG 1 tablet at bedtime as needed Orally Once a day; Duration: 90 days Active Lancets - 1 Lancet Used Once daily to check blood sugar; Duration: 90 days -whatever brand insurance covers 08/31/2022 Active Pen Hunker 30G X 8 MM 1 Pen Needle Used Four times a day with insulin Used Once a day with insulin; Duration: 30 days -whatever brand insurance covers 12/13/2022 Active Cyclobenzaprine HCl 10 MG 1 tablet as ne eded Orally Twice a day; Duration: 90 days Active Viberzi 100 MG 1 tablet with food Orally Twice a day; Duration: 30 Active Magnesium Oxide -Mg Supplement 400 (240 Mg) MG TAKE 1 TABLET BY MOUTH DAILY; Duration: 90 Active Ondansetron HCl 4 MG TAKE 1 TABLET BY MOUTH EVERY DAY NEEDED Orally Once a day; Duration: 60 days Active Carvedilol 6.25 MG TAKE 1 TABLET BY MOUTH TWICE DAILY WITH FOOD; Duration: 90 Active Colestipol HCl 1 GM TAKE 2 TABLETS BY MOUTH EVERY DAY Diagnosis Unavailable Orally Once a day; Duration: 90 Active Gabapentin 400 MG 1 capsule in morning and afternoon, 2 capsules at night time Orally three times daily; Duration: 90 days Active Social History Tobacco Use: Social History Observation Description Date Details (start date - stop date) Current Smoker NA - NA Sex Assigned At : Social History Observation Description Sex Assigned At Male Household Question Answer Notes Number of adults in household: 1 Tobacco Use/Smoking Question Answer Notes Tobacco use: current smoker patient enter ed data Are you interested in quitting? Thinking about q uitting patient entered data How many cigarettes a day do you smoke? 6-10 patient entered data How soon after you wake up d o you smoke your first cigarette? 31-60 minutes patient entered data How often do you smoke cigarettes? every day patient entered data When did you start smoking? 1970 p atient entered data CAGE-AID Questionnaire (2018 Edition) Question Answer Notes Have you ever felt that you ought to cut down on your drinking or drug use? No patient entered data Have people annoyed you by c riticizing your drinking or drug use? No patient entered data Have you ever felt bad or gu ilty about your drinking or drug use? No patient entered data Have you ever had a drink or used drugs first thing in the morning to steady your nerves or to get rid of a hangover? No patient entered data CAGE-AID Score 0 Interpretation Negative PRAPARE Question Answer Notes Date Completed/Updated: 08/28/2024 ann nt entered data What is your current housing situation? I have housing patient entered data Are you worried about losing your housing? No patient entered data What is the highest level of school that you have finished? More than high school patient entered data What is your current work situation? Otherwise unemployed but not seeking work (ex. 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 Check all that apply I choose not to answer this question Has lack of transportation k ept you from medical appointments, meetings, work or from getting things needed for daily living? Yes, it has kept me from medical appointments or from getting my medications How often do you see or talk to people that you care about and feel close to? (For example: talking to friends on the phone, visiting friends or family, going to gnosticism or club meetings) More than 5 times a week patient entered data How stressed are you? Stress is when someone feels tense, nervous, anxious, or can't sleep at night because their mind is troubled Quite a bit patient entered data In the past year have you sp ent more than 2 nights in a row in a fpc, fdc, nursing home center, or juvenile correctional facility? No patient entered data Are you a refugee? No patient en tered data What country are you from? [place] aleyda [place] entered data Do you feel physically and emotionally safe where you currently live? Yes patient entered data In the past year, have you b een afraid of your partner or ex-partner? I have not had a partner in the past year patient entered data PRAPARE Score: 6 Tobacco Control (Standard) Question Answer Notes Tobacco use: Current smoker Problems Problem Type SNOMED Code ICD Code Onset Dates Problem Status W/U Status Risk Notes Problem Polyneuropathy due to type 2 diabetes mellitus (975103619) Type 2 diabetes mellitus with diabetic polyneuropathy (E11.42) Active confirmed Problem Type II diabetes mellitus without complication (810114008) Type 2 diabetes mellitus without complications (E11.9) Active confirmed Problem Mixed hyperlipidemia (639915139) Mixed hyperlipidemia (E78.2) Active confirmed Problem Chronic pain (50794966) Other chronic pain (G89.29) Active confirmed Problem Long-term current use of insulin (199235178) 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 (Z79.4) Active confirmed Problem Type II diabetes mellitus without complication (823990584) Type 2 diabetes mellitus without complication, unspecified whether buttermaker continuous churn insulin use (E11.9) Active confirmed Problem Intervertebral disc disorder of cervical region with myelopathy (27203230) Cervical disc disorder at C5-C6 level with myelopathy (M50.022) Active confirmed Problem Tobacco user (788954166) Cigarette nicotine dependence without complication (F17.210) Active confirmed Problem Moderate major depression (105771) Moderate major depression (F32.1) Active confirmed Problem Nephrolithiasis (39209670) Nephrolithiasis (N20.0) Active confirmed Problem Type II diabetes mellitus without complication (238597804) Type 2 diabetes mellitus treated with insulin (E11.9) Active confirmed Problem Obesity (684617771) Obesity (BMI 30-39.9) (E66.9) Active confirmed Problem Essential hypertension (26631950) Hypertension, unspecified type (I10) Active confirmed Problem Allergic rhinitis (72262410) Allergic rhinitis, unspecified seasonality, unspecified trigger (J30.9) Active confirmed Problem Hypomagnesemia (653167299) Hypomagnesemia (E83.42) Active confirmed Comment:-pt had low magnesium in ER -they think that is why he was having muscle spasms -want to recheck now that he is out and had IV magnesium that day -will start on small supplement and have pt get labs -f/u as scheduled next week, Problem Depression screening positive (036373798877615) Positive depression screening (Z13.31) Active confirmed Problem Depression screening (947264203) Screening for depression (Z13.31) Active confirmed Description:De pression screening Problem Insomnia (707928418) Insomnia (G47.00) Active confirmed Comment:-pt has hx of insomnia -has been taking trazodone 50mg for years -does help him fall asleep -will c/w med at this time -f/u as needed, Problem Urinary hesitancy (8090921) Urinary hesitancy (R39.11) Active confirmed Comment:-pt complains that it sometimes takes him awhile to get his stream going. As long as 10 minutes at times -pt was on Flomax at one point after GI surgery - but then never got medication refilled -restarted on flomax at last visit. Has been helping to initiate stream lately -pt thinks that part of his issues is his current abdominal issues - was in ED early this morning the abdominal pain -will also get PSA on pt to make sure there is no concern for cancer -f/u in 6 weeks, Problem Influenza ([id number]) Influenza (J11.1) Active confirmed Comment:-pt comes in after illness for 1 week -thinking this illness is influenza -strep test negative -he has had body achse and felt bad the whole last week -could not get injection yesterday due to sx -cough is the worse - although lungs are CTAB -will give cough suppressant at this time -told to take ibuprofen or cough drops for throat pain -f/u in 1 week if not feeling better, Problem Diarrhea (06922389) Diarrhea (R19.7) Active confirmed Comment: -pt requests refill on medication, Problem Mixed anxiety and depressive disorder ([id number]) Anxiety and depression (F41.9) Active confirmed Comment:-pt has a hx of anxiety -currently taking Celexa 20mg -has been on the same medication for years now -thinks it has been helping - knows that it did when he first started taking ti -will c/w current medication at this time - pt not interested in increasing the dose right now -pt not interested in counseling at this time -denies suicidal thoughts or ideations -f/u in 3 months, Problem COPD - Chronic obstructive pulmonary disease ([id number]) COPD (chronic obstructive pulmonary disease) (J44.9) Active confirmed Comment:-pt has had ongoing issue with cough -repeated bronchitis infections as well -has never been on daily inhaler- but will start now -will also get PFTs -but pretty sure pt will have COPD -f/u in 2 weeks, Problem Allergic rhinitis (47696503) Allergic rhinitis (J30.9) Active confirmed Comment:-think ing that allergies are playing a role in the pt's sx -will give antihistamine -take daily and f/u in 1 week if cough has not resolved, Problem Hypertension (34788694) HTN (hypertension) (I10) Active confirmed BP normally elevated due to pain. Reports normal readings at home. Advise to keep a record and bring on next visit Problem Abdominal pain (53835790) Abdominal pain (R10.9) Active confirmed Comment:-RLQ abd pain. still not sure of the cause -CT did not show any new findings -it has been quite a bit better the last couple weeks with Bentyl -still constantly there though -suggested a referral to GI and most likely a scope in the future - but pt does not wish to do that at this time. since it is improving, he just wants to monitor it for now -will continue Bentyl -will check to see how pain is at pt's next appt, Problem Swelling of head (540505974) Jaw swelling (R22.0) Active confirmed Comment:-pt comes in with swelling of jaw on left side -poor dentition -wondering if it started as a dental abscess and has progressed as pt has had sx for 2 weeks -could also be mumps -no fever is a good sign -but definitely seems like infection at this time -will send to ED for imaging and possible IV antibiotics -f/u with me after ED visit, Problem Diabetes mellitus (78287884) Diabetes mellitus (E11.9) Active confirmed Comment:-A1C from 12/2018 was 8.9% (that is most recent blood tests for us). In 09/2018 was 8.4%. In 03/2018 was 7.5%. -Currently taking Jentadueto 2.5-1000mg BID, Lanuts 45u nightly, and Humalog 18u before meals (usually only taking about 1 time daily currently). compliant with medication. tolerating well -has not been checking sugar much. was 250 last time he did check. no recent hypoglycemia. but was having it in the past -c/w current medications - PT NEEDS TO GET LABS!!!!! STRESSED THIS DURING APPT -Does have numbness and tingling in feet, but has back issues that are likely contributing as well. Has been taking gabapentin 300mg TID - which I will fill at this time -Needs appts with eye doctor. -lipids from 12/2018 was pretty well controlled -NEEDS UPDATED. GET LABS!!!! -Counseled pt on lifestyle modifications including diet and physical activity -NEEDS TO GET LABS -f/u in 2 weeks or sooner if needed, Problem Lumbar spinal stenosis (19810416) Spinal stenosis, lumbar (M48.061) Active confirmed Problem Leg pain (80941926) Leg pain (M79.606) Active confirmed Comment:-pt having lower leg pain -also states that legs are turning a black color and having hard, palpable veins in legs -VERY concerned for blood clot in the legs -pt also having quite a bit of pain -told pt to get to ED for evaluation as soon as he can to rule out clot or blood flow issue - PVU but states that it probably won't be until tomorrow -but says he will go -f/u in 2 weeks - after ED visit, Problem MRI of lumbar spine abnormal ([id number]) Abnormal MRI, lumbar spine (R93.7) Active confirmed Comment:-order ing another MRI because the report I got back from [facility] recommended that the follow his pervious MRI up with MRI with and without contrast. previous was only without contrast -will do so while referring to neurosurgery., Problem Upper respiratory infection (41307595) Upper respiratory infection (J06.9) Active confirmed Comment:-pt has URI -sx only for a couple days -and COVID negative in office -so likely just another virus -c/w symptomatic relief - vitamin C, Claritin, Mucinex, cough drops, and honey as needed for sx relief. Increase clear fluids and rest. -f/u next week if not doing better, Problem Dental abscess (088036437) Dental abscess (K04.7) Active confirmed Comment:-pt complains of dental abscess on left side -had lots of swelling and pain as well -was admitted for 3 days due to this -could not tolerate the clindamycin that they sent in for pt -so will now send Augmentin BID for 7 days to be safe -f/u with oral surgeon at this time -f/u with me as needed, Problem Kidney stone (03205684) Kidney stone on left side (N20.0) Active confirmed Comment:-pt has hx of kidney stones -thinks he has another one on the left side right now -he is drinking plenty of fluids -already on flomax -he is under pain contract from pain clinic - so can only give pt ibuprofen 800mg TID at this time for pain -pt wants to hold off on CT scan at this time - see if passes on its own -f/u as needed if stone not passing, Problem Anxiety (38761000) Situational anxiety (F41.8) Active confirmed Comment:-pt states that he has quite a bit of anxiety when getting MRI. does not like the inclosed space -will give him a couple valium to get him through experience - OARRS reviwed today. has one new provider that says her address is in [place]. will inquire about this at pt's next visit. does not seem overy suspicious. looked her up online and states she is now with [facility]. it is the same dose of medication he has been getting previously of chronic pain meds, Problem Acute bronchitis (86849647) Bronchitis, acute (J20.9) Active confirmed Comment:-pt has acute bronchitis.- likely viral -wheezes heard in lungs. -pt has been having recurrent issues with cough recently -quit smoking 4 years ago, but smoked for 20 years -will give antibioitc and prednisone at this time -will also give cough suppressant. OARRS reviewed today and consistenet with pt's story - Can also take vitamin C, Claritin, Mucinex, cough drops, and honey as needed for sx relief -stress pt to follow up if not feeling better after medcation is completed -f/u as needed, Problem Bronchitis (04606354) Bronchitis (J40) Active confirmed Comment:-pt currently has URI -likely bronchitis -since pt has COPD and is a smoker - will send in z-matthew and prednisone -will also give cough syrup -Can also take vitamin C, Claritin, Mucinex, cough drops, and honey as needed for sx relief. Increase clear fluids and rest. -hold off on CXR and COVID test -if pt is not feeling better a little by the weekend - suggest that he go to ED. PVU -f/u in 1 week if not feeling better, Problem Sinusitis (11927775) Sinusitis (J32.9) Active confirmed Comment:-pt states that he currently has sinus congestion and has for a few days -but also reports that the right side of his face is swollen -has had facial swelling in the past - but due to an infected tooth at that time -this time - pt thinks it is sinus related -will send in Augmentin for him at this time -but also suggested that he go to ED for evaluation - especially if not getting better in the next day or two - PVU -f/u with me as needed if not improving, Problem Lower abdominal pain (17296902) Lower abdominal pain (R10.30) Active confirmed Comment:-pt is having lower abdominal pain that has gotten worse over the past month -pain started in RLQ - now extends acorss the entire lower abdomen -he has been taking bentyl for the pain - at first it was helping, but no longer is -had a CT of abdomen/pelvis in 04/2017 and 07/2017. Both showed cirrhosis of the liver, but no acute process in the lower abdomen -will send to GI for evaluation and treatment. get in as soon as possible due to pain pt is currently in -told to go to ED for evaluation if sx worsen -f/u as needed before getting into GI, Problem Chronic cough (75567300) Chronic cough (R05.3) Active confirmed Comment:-pt has had a cough sicne getting home from surgery -bringing more stuff up now -could be allergic in nature -mild wheezing in lungs -c/w inhaler -will give z-matthew as well -will also order PFTs bc cough has been going on so long -f/u in about 1 week if not feeling better -otherwise f/u in 6 weeks, Problem Disease caused by Severe acute respiratory syndrome coronavirus 2 (disorder) (809949192) COVID (U07.1) Active confirmed Comment:-pt dx with COVID on 07/02/2021 -doing better at this time -but still coughing pretty bad at night -will send rehana whittaker at this time -f/u as needed if do not continue to improve, Problem Chronic low back pain (400658437) Chronic low back pain (M54.50) Active confirmed Comment:-pt has chronic lumbar back pain -has degenerative changes on CT -MRI from 04/2017 showed degenerative changes with disc bulging at a couple different levels -currently having acute on chronic pain -no longer seeing pain management at [facility] -argued with them and did not go back -mid and right low back has been hurting. traveling down the leg as well at times -c/w oxycodone and flexeril at this time -got MRI - no central canal stenosis. but did have a little foraminal narrowing -has been referred to neurosurgery and pt has been contacted by them but no appt yet -has seen [facility] one time - will wait to see what neurosurgery has to say before going back -f/u in 4 weeks, Vital Signs Heart Rate 122 /min 05/05/2025 Marco Antonio Nikia 05/05/2025 01:36:17 PM EDT > Temperature 97.2 degrees Fahrenheit 05/05/2025 Jay bledsoe Nikia 05/05/2025 01:36:17 PM EDT > Respiratory Rate 22 /min 05/05/2025 Marco Antonio Jamelross marin 05/05/2025 01:36:17 PM EDT > Blood pressure diastolic 87 mm Hg 05/05/2025 Nikia Win 05/05/2025 01:36:17 PM EDT > Height-cm 182.88 cm 05/05/2025 Marco Antonio Nikia 05/05/2025 01:36:17 PM EDT > Oximetry 98 % 05/05/2025 Marco Antonio Nikia 05/05/2025 01:36:17 PM EDT > Weight-kg 108.68 kg 01/27/2025 Marco Antonio Nikia 01/27/2025 03:34:58 PM EDT > Height 72 in 05/05/2025 Marco Antonio Nikia 05/05/2025 01:36:17 PM EDT > Blood pressure systolic 145 mm Hg 05/05/2025 Jay bledsoe Nikia 05/05/2025 01:36:17 PM EDT > Weight 239.6 lbs 01/27/2025 Nikia Bernard 01/27/2025 03:34:58 PM EDT > BMI 32.49 kg/m2 01/27/2025 Nikia Bernard 01/27/2025 03:34:58 PM EDT > Encounters Encounter Location Date Provider Diagnosis [address] [facility] [place] [id number] 06/03/2024 Francisca Mauro Pain, joint, knee, r ight M25.561 ; Controlled substance agreement signed Z79.899 and HTN (hypertension) I10 [address] [facility], [place] [id number] 06/21/2024 Francisca Mauro HTN (hypertension) I 10 and Low back pain M54.50 [address] [facility], [place] [id number] 07/23/2024 Francisca Mauro HTN (hypertension) I 10 ; Chronic low back pain M54.50 and Lump R22.9 [address] [facility], [place] [id number] 08/01/2024 Francisca Mauro penitentiary (current) use of insulin Z79.4 ; Type 2 diabetes mellitus with diabetic polyneuropathy E11.42 ; Hypertension, unspecified type I10 ; Dietary counseling Z71.3 ; Exercise counseling Z71.82 and Obesity (BMI 30-39.9) E66.9 [address] [facility], [place] [id number] 08/28/2024 Francisca Mauro HTN (hypertension) I 10 ; Chronic low back pain M54.50 ; Hypomagnesemia E83.42 ; Moderate major depression F32.1 ; Mixed hyperlipidemia E78.2 ; Cigarette nicotine dependence without complication F17.210 ; Obesity (BMI 30-39.9) E66.9 ; Dietary counseling Z71.3 and Exercise counseling Z71.82 [address] [facility] [place] [id number] 09/11/2024 Francisca Mauro Chronic low back dora n M54.50 and HTN (hypertension) I10 [address] [facility], [place] [id number] 10/10/2024 Francisca Mauro Moderate major depre ssion F32.1 and Difficulty urinating R39.198 [address] [facility], [place] [id number] 10/28/2024 Francisca Mauro Type 2 diabetes yordan itus without complication, unspecified whether retirement insulin use E11.9 ; Hypertension, unspecified type I10 ; Mixed hyperlipidemia E78.2 and Chronic low back pain M54.50 [address] [facility], [place] [id number] 11/13/2024 Francisca Mauro Moderate major depre ssion F32.1 ; Difficulty urinating R39.198 and Chronic low back pain M54.[address] [place], [place] [id number] 12/11/2024 Francisca Mauro Moderate major depre ssion F32.1 ; Chronic low back pain M54.50 and HTN (hypertension) I10 [address] [place], [place] [id number] 01/27/2025 Francisca Mauro Type 2 diabetes yordan itus with diabetic polyneuropathy E11.42 and Mixed hyperlipidemia E78.[address] [place], [place] [id number] 05/05/2025 Francisca Mauro Lower abdominal pain R10.30 ; Urinary retention R33.9 and Low back pain M54.[address] [place], [place] [id number] 05/24/2024 Savanah Eugenio [address] [place], [place] [id number] 06/06/2024 Francisca Mauro [address] [place], [place] [id number] 07/09/2024 Francisca Mauro Chronic low back dora n M54.[address] [place], [place] [id number] 07/22/2024 Francisca Mauro [address] [place], [place] [id number] 07/24/2024 Francisca Mauro [address] [place], [place] [id number] 08/05/2024 Francisca Mauro Pain, joint, knee, r ight M25.[address] [place], [place] [id number] 08/26/2024 Francisca Mauro [address] [place], [place] [id number] 08/26/2024 Francisca Mauro [address] [place], [place] [id number] 08/26/2024 Francisca Mauro [address] [place], [place] [id number] 10/22/2024 Francisca Mauro Chronic low back dora n M54.[address] [place], [place] [id number] 10/24/2024 Francisca Mauro Chronic low back dora n M54.[address] [place], [place] [id number] 10/29/2024 Francisca Mauro [address] [place], [place] [id number] 10/29/2024 Francisca Mauro Moderate major depre ssion F32.[address] [place], [place] [id number] 10/30/2024 Francisca Mauro [address] [place], [place] [id number] 11/04/2024 Francisca Mauro [address] [place], [place] [id number] 11/06/2024 Francisca Mauro [address] [place], [place] [id number] 11/06/2024 Francisca Mauro [address] [place], [place] [id number] 11/18/2024 Francisca Mauro [address] [place], [place] [id number] 01/28/2025 Francisca Mauro [address] [place], [place] [id number] 03/03/2025 Francisca Mauro HTN (hypertension) I 10 and Hypomagnesemia E83.[address] [place], [place] [id number] 05/16/2025 Francisca Mauro [address] [place], [place] [id number] 09/25/2024 Francisca Mauro Moderate major depre ssion F32.[address] [place], [place] [id number] 04/15/2025 Francisca Mauro Assessments Encounter Date Diagnosis (ICD Code) Assessment Notes Treatment Notes Treatment Clinical Notes Section Notes 10/10/2024 Moderate major depression (ICD-10 - F32.1) currently without sleep due to situational stress. I will give him more time and advise if no improvement then establish with counselor to help with the situational stress 12/11/2024 Moderate major depression (ICD-10 - F32.1) Mainly worse due to just pain. Will continue current medications for now and advise to continue to follow with media reconciliation specialist for pain optimization. No suicidal thought today. If having suicidal ideations or homicidal call 911 or go to ER. 05/05/2025 Lower abdominal pain (ICD-10 - R10.30) improving 03/03/2025 HTN (hypertension) (ICD-10 - I10) 05/05/2025 Urinary retention (ICD-10 - R33.9) Reports passing urine. Has appt with urologist on May 17 12/11/2024 Chronic low back pain (ICD-10 - M54.50) Pt now following with pain management from [facility]. Will refill percocet to bridge until he sees pain management as needed with transportation and sleep issues 01/27/2025 Type 2 diabetes mellitus with diabetic polyneuropathy (ICD-10 - E11.42) A1c 6.6 stable. Patient has controlled Diabetes Mellitus Type 2. I will continue the same regimen I recommend home blood sugar readings to be monitored frequently (daily fasting along with random (2 hours after meals). Pt was advised to log the reading with timings and to bring it on the next visit so we can adjust the dose of medications as needed. Pt was advised to inspect the feet daily. Patient was reminded to have yearly eye exam to look for diabetic retinopathy and yearly destaticizer feeder visit and PVU Pt will f/up with repeat labs in 6 months. 08/28/2024 HTN (hypertension) (ICD-10 - I10) Bp well controlled. Continue current medications 10/28/2024 Type 2 diabetes mellitus without complication, unspecified whether retirement insulin use (ICD-10 - E11.9) A1c 6.5 improved significantly. Advise to stop insulin and continue all other medications. I recommend home blood sugar readings to be monitored frequently (daily fasting along with random (2 hours after meals). Pt was advised to log the reading with timings and to bring it on the next visit so we can adjust the dose of medications as needed. Pt was advised to inspect the feet daily. Patient was reminded to have yearly eye exam to look for diabetic retinopathy and yearly destaticizer feeder visit and PVU Pt will f/up with repeat labs in 3 months. 10/29/2024 Moderate major depression (ICD-10 - F32.1) 11/13/2024 Difficulty urinating (ICD-10 - R39.198) Concerns for nerve compression related urinary retention but pt reports he was able to urinate better now. Already has appt with Urologist. Discussed reassuring vs non reassuring symptoms and when to call the office or go to ER. PVU 11/13/2024 Moderate major depression (ICD-10 - F32.1) For now will continue Sertraline as rightnow he is already frustrated with his back pain. Will re evaluate once is back pain is better 10/22/2024 Chronic low back pain (ICD-10 - M54.50) 10/24/2024 Chronic low back pain (ICD-10 - M54.50) 08/28/2024 Chronic low back pain (ICD-10 - M54.50) Managed by media reconciliation specialist. 09/11/2024 HTN (hypertension) (ICD-10 - I10) BP normally elevated due to pain. Reports normal readings at home. Advise to keep a record and bring on next visit 09/11/2024 Chronic low back pain (ICD-10 - M54.50) Continues to have back pain. Seeing media reconciliation specialist who referred him to pain management. Appt on 09/19/24. Pt needs refill on Percocet. I will refill for 8 days to last until his appt. Defer further management to pain management. OARS reviewed, CSA signed on last visit. Urine drug also done recently. 09/25/2024 Moderate major depression (ICD-10 - F32.1) 10/10/2024 Difficulty urinating (ICD-10 - R39.198) Pt already on tamsulosin and still no help. I will do basic tests and ultrasound. Also referring to urologist for further evaluation 08/05/2024 Pain, joint, knee, right (ICD-10 - M25.561) 06/03/2024 Pain, joint, knee, right (ICD-10 - M25.561) Patient was noted to be in severe pain. I ordered Xray knee. Advised to call his orthopedic surgeon to schedule an appoitnment as soon as possible for further evalaution and possible knee tap. I will do Prednisone course as this a new flareup. Patient was advised to go to ER if pain not improving. PVU Percocet was ordered for knee pain. I will start controlled substance protocol today. The pain contract will be reassessed every 3 months and renewed every 6 months as per [facility] policy. OARRS was reviewed and no suspicious activity related to controlled substances was noted today. I will be ordering urine tox 06/03/2024 Controlled substance agreement signed (ICD-10 - Z79.899) 06/21/2024 HTN (hypertension) (ICD-10 - I10) BP noted to be elevated. But currently pt in pain. Does have hx of low bp previously. I will not change any medication at this point and will try to manage pain. Advised to check BP at home and keep a record of it to bring on next visit in 4 weeks. 06/21/2024 Low back pain (ICD-10 - M54.50) acute on chronic low back pain with right sided radiculopathy. Exam limited as pt unable to move. Unable to check power but pt denies any weakness. Pt did showed back MRI from 2022 which showed bulging disc. I discussed giving toradol injection but pt refuse stating he has hx of cirrhosis. He does take percocet previously. I dont feel comfortable prescribing percocet with his cirrhosis hx. I will do Prednisone course 50 mg daily for 5 days. Pt alreading using flexeril and lidocaine patch, advised to continue. Patient was advised to use ice and moist heat as needed. Also prescribing gabapentin. Referral to media reconciliation specialist placed for further evaluation Reassuring vs non reassuring symtpoms were discussed as well as when to go to ER. I will start controlled substance protocol today for gabapentin. The pain contract will be reassessed every 3 months and renewed every 6 months as per [facility] policy. OARRS was reviewed and no suspicious activity related to controlled substances was noted today. I will be ordering urine tox 07/09/2024 Chronic low back pain (ICD-10 - M54.50) 07/23/2024 HTN (hypertension) (ICD-10 - I10) BP noted to be elevated initially but improved on repeat. Advised to check BP at home and keep a record of it to bring on next visit Discussed having diet low in salt 07/23/2024 Chronic low back pain (ICD-10 - M54.50) Pt not improved. Following with media reconciliation specialist. Will refill gabapentin today. CSA signed on last appt. Advised to get urine drug screen. Discussed reassuring vs non reassuring symptoms and when to call the office or go to ER. PVU 08/01/2024 Type 2 diabetes mellitus with diabetic polyneuropathy (ICD-10 - E11.42) A1c worse 7.8 from 7.3 (07/2023). But pt was not taking his meds in between and recently restarted. I discussed importance of taking medicines consistently. Will continue current medications: Ozempic 0.5 mg, Jentadueto and short acting insulin as needed. Will f/u in 3 months. Discussed diet and exercise. Refilling Dexcom. Pt was advised to inspect the feet daily. Unable to do foot exam on today's visit as pt has back pain and unable to sit properly, currently being evaluated by media reconciliation specialist. Patient was reminded to have yearly eye exam to look for diabetic retinopathy and PVU Pt will f/up with repeat labs in 3 months. 08/01/2024 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 (ICD-10 - Z79.4) 07/23/2024 Lump (ICD-10 - R22.9) Pt noted to have a soft lump on right thigh I will get an ultraosund for further evaluation and rule out any abscess. PT reports this lump is different from his back pain though. He does have an upcoming MRI ordered by specialist. 06/03/2024 HTN (hypertension) (ICD-10 - I10) BP noted to be elevated. But since pt is in severe pain changing bp meds is not appropriate at this point since his readings were normal before the flare. Advised to check BP at home and keep a record of it to bring on next visit in 2 weeks. Discussed having diet low in salt and exercise. Discussed If BP greater than 200 or any other new associated symptoms Please go to ER. PVU 08/28/2024 Hypomagnesemia (ICD-10 - E83.42) 08/01/2024 Hypertension, unspecified type (ICD-10 - I10) BP noted to be elevated but pt currently in pain. Will not change any medications Advised to check BP at home and keep a record of it to bring on next visit Discussed having diet low in salt and exercise. 10/28/2024 Mixed hyperlipidemia (ICD-10 - E78.2) Due for labs before next appt. 11/13/2024 Chronic low back pain (ICD-10 - M54.50) Chronic pain. Pt now scheduled with a different pain specialist. I will increase his gabapentin to 400 mg TID to help his pain further. Also giving percocet as needed for breakthrough pain until seen by pain specialist. 10/28/2024 Hypertension, unspecified type (ICD-10 - I10) BP noted to be elevated likely secondary to severe pain. Will not do any chnages at this point given his hx of low bp in the past. Advised to check BP at home and keep a record of it to bring on next visit in 2 weeks. Discussed having diet low in salt and exercise. 01/27/2025 Mixed hyperlipidemia (ICD-10 - E78.2) Due for repeat labs 03/03/2025 Hypomagnesemia (ICD-10 - E83.42) 12/11/2024 HTN (hypertension) (ICD-10 - I10) Blood pressure better but pt doing extra carvedilol as needed. I will increase the coreg to 6.25 mg BID. Advise to not do as needed and take fixed doses. Advised to check BP at home and keep a record of it to bring on next visit Discussed having diet low in salt and exercise. 05/05/2025 Low back pain (ICD-10 - M54.50) Reports acute worsening and pt visibly look uncomfortable. I strongly recommend to go to ER and pt agrees. PT states he will drive himself to ER and refuse EMS. [facility] and report given to ER provider. 08/28/2024 Moderate major depression (ICD-10 - F32.1) Depression screening positive despite on Citalopram 20 mg daily. Disucssed about increasing the dose pt agrees with the plan. Citalopram increased to 40 mg. SI discussed. f/u in 6 weeks 10/28/2024 Chronic low back pain (ICD-10 - M54.50) severe pain, appt with pain reschedules to next monday. Will refill his percocet until Monday. Discussed reassuring vs non reassuring symptoms and when to call the office or go to ER. PVU 08/01/2024 Dietary counseling (ICD-10 - Z71.3) 08/01/2024 Exercise counseling (ICD-10 - Z71.82) 08/28/2024 Mixed hyperlipidemia (ICD-10 - E78.2) Reviewed recent labs which showed elevated cholesterol. PT also has hx of DM but not on statin. I will start Atorvastatin 40 mg daily. SI discussed. I discussed that food choices impact the cholesterol level and gave information of food that will help bring the cholesterol level down. Pt was advised to start doing exercise - atleast for 30 min 5 days a week. Pt was advised to stop smoking. I will repeat the lipid profile in 3 months 08/28/2024 Cigarette nicotine dependence without complication (ICD-10 - F17.210) Adverse effects of smoking were discussed with the patient today. Pt was advised smoking cessation. Pt is agreeable to start meds to stop smoking today. Starting Nicotine patch 08/01/2024 Obesity (BMI 30-39.9) (ICD-10 - E66.9) 08/28/2024 Obesity (BMI 30-39.9) (ICD-10 - E66.9) 08/28/2024 Dietary counseling (ICD-10 - Z71.3) 08/28/2024 Exercise counseling (ICD-10 - Z71.82) 08/01/2024 Other Plan Of Treatment Pending Test Test Name Order Date COVID19 (SARS-CoV-2, NA) ([id number] Next Appt Details Provider Name:Franciscacarlos Wade, 06/17/2025 02:00:00 PM, [address] [place], [place], [id number], Provider Name:Francisca Mauro, 07/29/2025 03:00:00 PM, [address] [place], [place], [id number], Insurance Providers Payer Name Payer Address Payer Phone Subscriber Number Group Number Insured Name Patient Relationship to Insured Coverage Start Date Coverage End Date Medicare NGS PPS [address] [place], [place] [id number] [phone] [id number] Percy sonRuth Self - patient is the insured 3 Medical (General) History Medical History History ICD Code Anxiety and depression Cirrhosis, COMMENTS: Noted on 04/16/17 CT of abdomen DDD (degenerative disc disease) Diabetes Mellitus, Type II HTN (hypertension) Inguinal Hernia, COMMENTS: Left- noted o n 04/16/17 CT of abd Surgical History Surgery Date(Month/Year) Colon Removal - Partial Discectomy, COMMENTS: L5 1999 Hernia repair 10-27-21 pins and rods- right femur 01/18/24 plates and screws- right femur 01/30/24 Hospitalization History Reason Date(Month/Year) see surgical hx hernia surgery observation 10-27-21
--- OUTSIDE RECORDS SUMMARY | 2025-05-20 17:46 | XMS_ITS | Clinical Summary ---
Author Organization [facility] Address [id number] [address] [place] [address] Care Team Providers Care Dental Appliance Fixer Name Role Phone Francisca Wade MD Primary Care Provider [phone] Allergies Active Allergy Reactions Criticality Noted Date Comments Clindamycin Other (See Comments) 11/28/2024 I was really sick Insulin Glargine Nausea And Vomiting, GI Disturbance Low 12/01/2023 basaglar Medications fenofibrate (LOFIBRA) 160 mg tablet Take 1 tablet (160 mg total) by mouth in the morning. Active traZODone (DESYREL) 50 mg tablet Take 1 tablet (50 mg total) by mouth nightly. Active UNIFINE PENTIPS PLUS 31 gauge x 1/4 needle 0 09/14/19 19 Active linagliptin-metFOR MIN 2.5-1,000 mg tablet Take 1 tablet by mouth 2 (two) times daily at 0800 and 1500. Active albuterol (PROVENTIL HFA;VENTOLIN HFA) 90 mcg/actuation inhaler Inhale 2 puffs every 6 (six) hours as needed for wheezing. Active citalopram (CeleXA) 20 mg tabletIndications: major depressive disorder Take 1 tablet (20 mg total) by mouth in the morning. Indications: major depressive disorder. Active sucralfate (CARAFATE) 1 gram tablet Take 1 tablet (1 g total) by mouth in the morning and 1 tablet (1 g total) at noon and 1 tablet (1 g total) in the evening and 1 tablet (1 g total) before bedtime. Active hyoscyamine (ANASPAZ,LEVSIN) 0.125 mg tablet Take 1 tablet (0.125 mg total) by mouth in the morning and 1 tablet (0.125 mg total) at noon and 1 tablet (0.125 mg total) in the evening and 1 tablet (0.125 mg total) before bedtime. Active magnesium oxide (MAGOX) 400 mg tablet Take 1 tablet (400 mg total) by mouth in the morning. 10/24/19 24 Active XIFAXAN 550 mg tablet Take 1 tablet (550 mg total) by mouth in the morning and at bedtime. Active OZEMPIC 0.25 mg or 0.5 mg (2 mg/3 mL) pen injector Inject 0.5 mg under the skin once a week. Monday03/21/20 23 Active omeprazole (PriLOSEC) 40 mg capsule Take 1 capsule (40 mg total) by mouth in the morning and at bedtime. 12/01/19 24 Active colestipoL (COLESTID) 1 g tablet Take 1 tablet (1 g total) by mouth in the morning. 11/02/19 24 Active losartan (COZAAR) 50 mg tablet Take 1 tablet (50 mg total) by mouth nightly. 30 tablet 02/09/20 24 Active ondansetron ODT (ZOFRAN ODT) 4 mg disintegrating tablet Dissolve 1 tablet (4 mg total) on tongue as needed. 02/14/20 24 Active FIASP FLEXTOUCH U-100 INSULIN 100 unit/mL (3 mL) insulin pen Inject 15 Units under the skin Daily before evening meal. 01/23/20 24 Active DEXCOM G7 SENSOR device 02/11/20 24 Active cyclobenzaprine (FLEXERIL) 10 mg tablet Take 1 tablet (10 mg total) by mouth once daily at bedtime. Active hydroCHLOROthiazid e (HYDRODIURIL) 25 mg tablet 03/10/20 24 Active VIBERZI 100 mg tablet Take 1 tablet (100 mg total) by mouth in the morning and 1 tablet (100 mg total) in the evening. Take with meals. Active carvediloL (COREG) 3.125 mg tablet Take 1 tablet (3.125 mg total) by mouth in the morning and 1 tablet (3.125 mg total) in the evening. Take with meals. Active gabapentin (NEURONTIN) 300 mg capsule Take 1 capsule (300 mg total) by mouth in the morning and 1 capsule (300 mg total) before bedtime. 06/21/20 24 Active atorvastatin (LIPITOR) 40 mg tablet Take 1 tablet (40 mg total) by mouth in the morning. Active tamsulosin (FLOMAX) 0.4 mg capsule Take 2 capsules (0.8 mg total) by mouth nightly. 180 capsule 3 03/24/20 25 Active tiZANidine (ZANAFLEX) 4 mg tablet Take 1 tablet (4 mg total) by mouth every 6 (six) hours as needed for muscle spasms. 30 tablet 05/05/20 25 Active lidocaine (SALONPAS) 4 % Place 1 patch on the skin daily. 30 patch 05/05/20 25 Active ibuprofen (MOTRIN) 600 mg tablet Take 1 tablet (600 mg total) by mouth every 6 (six) hours as needed for pain. 30 tablet 05/05/20 25 Active predniSONE (DELTASONE) 10 mg tablet Take 4 tablets (40 mg total) by mouth in the morning for 5 days. 20 tablet 05/05/20 25 025 Active Problems Problem Noted Date Diagnosed Date Difficulty urinating 12/04/2024 Overview (03/24/2025): ==== 03/24/2025 ==== tolerates tamsulosin. Been on [...] what sounds to be an ablation with [facility], he will call and cancel. At his convenience, he will stop at the lab for a PSA. Assessment & Plan (12/04/2024 4:15 PM EDT): We discussed that he may need urodynamics as well. Trochanteric bursitis of right hip 03/14/2024 S/P right hip fracture 02/03/2024 Iron deficiency anemia 02/03/2024 Depression 02/03/2024 Gastroesophageal reflux disease without esophagi tis 02/03/2024 Irritable bowel syndrome with diarrhea Hypomagnesemia 02/03/2024 Mixed hyperlipidemia 02/03/2024 Tobacco dependence due to cigarettes 02/03/2024 BPH (benign prostatic hyperplasia) 01/29/2024 Myah-prosthetic fracture around prosthetic hip 0 01/29/2024 Difficulty in walking 01/23/2024 Type 2 diabetes mellitus wit h circulatory disorder, with long-term current use of insulin 01/23/2024 Primary hypertension 01/23/2024 Class 1 obesity due to exces s calories with serious comorbidity and body mass index (BMI) of 31.0 to 31.9 in adult 01/23/2024 Hip fx 01/22/2024 Closed displaced intertrochanteric fracture of r ight femur 01/17/2024 Closed fracture of right hip, initial encounter 01/17/2024 Abdominal pain 10/31/2021 Facial infection 04/04/2021 Encounters Date Type Department Care Team Description 05/20/2025 2:35 PM EDT Hospital Encounter [facility] - Radiology [address] [place] [id number] Lower abdominal pain, unspecified 05/20/2025 Travel 05/05/2025 3:27 PM EDT - 05/05/2025 6:20 PM EDT Emergency [facility] - Emergency [address] [facility] [place] [phone] Chronic right-sided low back pain with right-sided sciatica (Primary Dx) Discharge Disposition: Home 05/05/2025 Travel 04/28/2025 2:20 PM EDT - 04/28/2025 11:59 PM EDT Hospital Encounter [facility] - Neurophysiology [address] [phone] Lumbar radiculopathy; History of total right hip replacement; History of lumbar discectomy Discharge Disposition: Home 04/28/2025 Travel 04/24/2025 Telephone [facility] [address] [phone] VicentaAdamaMIRA 03/24/2025 12:00 PM EDT Office Visit [facility] [address] [place] [address] [place] [address] Sid Alves MD Difficulty urinating (Primary Dx) 03/23/2025 Travel 03/21/2025 Results Follow-Up [facility] [address] [place] [address] [place] [address] Jeni Gillis PA Prostatic specific antigen, diagnostic 03/20/2025 Travel from Last 3 Months Immunizations No known immunizations Family History Medical History Relation Name Comments Early Father Jaya jr. Heart disease Father Jaya jr. Hypertension Father Jaya jr. Diabetes Maternal Aunt Liliana Arthritis Maternal Grandfather Jaya Arthritis Maternal Grandmother Yamile Heart disease Maternal Grandmother Yamile Hypertension Maternal Grandmother Yamile Stroke Maternal Grandmother Yamile Depression Mother Sweta Colon cancer Paternal Aunt 1 K Depression Paternal Aunt 1 K Audra Arthritis Paternal Aunt 2 Audra Colon cancer Paternal Aunt 3 Massiel Arthritis Paternal Grandfather Ankit COPD Paternal Grandfather Ankit Heart disease Paternal Grandfather Ankit Lung cancer Paternal Grandfather Ankit Stroke Paternal Grandfather Ankit Arthritis Paternal Grandmother Mossie Heart disease Paternal Grandmother Mossie Stroke Paternal Grandmother Mossie COPD Paternal Uncle Don Relation Name Status Comments Father Jaya jr. Maternal Aunt Liliana Alive Maternal Grandfather Jaya Alive Maternal Grandmother Yamile Mother Sweta Alive Paternal Aunt 1 K Paternal Aunt 2 Audra Alive Paternal Aunt 3 Massiel Alive Paternal Grandfather Ankit Paternal Grandmother Mossie Paternal Uncle Don Alive Social History Tobacco Use Types Packs/Day Years Used Date Smoking Tobacco: Every Day Cigarettes 0.5 55.5 Started: 12/06/1989 Smokeless Tobacco: Never Tobacco Cessation:Ready to Q uit: Not Asked; Counseling Given: Not Answered Alcohol Use Standard Drinks/Week Comments Not Currently 0 (1 standard drink = 0.6 oz pur e alcohol) [facility] Utilities Answer Date Recorded In the past 12 months has [employer], gas, oil, or water company threatened to [...] week 02/03/2024 How often do you attend druze or judaism serv ices? Never 02/03/2024 Do you belong to any clubs o r organizations such as druze groups, unions, fraternal or athletic groups, or [...] Answer Date Recorded Total Score 2 02/03/2024 [facility] [...] Recorded Do you need help finding a [facility] and/or a training program? No 02/03/2024 [...] Orientation Straight 08/11/2021 6: 01 PM EST Last Filed Vital Signs Vital Sign Reading Time Taken Comments Blood Pressure 143/98 05/05/2025 6:08 PM EDT Pulse 93 05/05/2025 6:08 PM EDT Temperature 36.9 C (98.5 F) 05/05/2025 3:24 PM EDT Respiratory Rate 18 05/05/2025 6:08 PM EDT Oxygen Saturation 98% 05/05/2025 6:08 PM EDT Inhaled Oxygen Concentration - - Weight 104.3 kg (230 lb) 05/05/2025 3:24 PM EDT Height 185.4 cm (6' 1 ) 05/05/2025 3:24 PM EDT Body Mass Index 30.34 05/05/2025 3:24 PM EDT Plan of Treatment Upcoming Encounters Date Type Department Care Team (Late st Contact Info) Description 05/21/2025 9:45 AM EDT Office Visit [facility] [address] [place] [address] [place] [address] Jeni Gillis PA [address] [place] [address] 05/26/2025 3:15 PM EDT Office Visit [facility] [address] [place] [address] [place] [address] Sid Alves MD [address] [place] [id number] Health Maintenance Due Date Last Done Comments Diabetic Ophthalmology Exam 1968 Diabetic Foot Exam 1986 DTaP,Tdap and Td Vaccines (1 - Tdap) 1987 Zoster (Shingles) Vaccine (1 of 2) 2018 Depression Screening 02/02/2025 02/03/2024 COVID-19 Vaccine ( season) 04/14/202508/2020, 03/24/2021 Influenza Vaccine 04/14/2025 Adult BMI Follow Up Plan 07/18/2025 07/18/2024 Tobacco Counseling 08/02/2025 02/01/2024 Statin Use: Diabetic 03/24/2026 03/24/2025 Adult BMI Screening 05/05/2026 05/05/2025 Tobacco Screening 05/05/2026 05/05/2025 Goals Goal Patient Goal Type Associated Problems Recent Progress Patient-Stated? Author to improve mobility and get home General Yes Citlalli Goode, RN Note: Evaluation of progress towards goal: Participating in therapy <enter goal here> General Yes Chika Ramsey LSW Note: Evaluation of progress towards goal: pt plans to return to [facility] rehab at [place] to go home General Yes Connie Ramirez, RN Note: Evaluation of progress towards goal: participating in therapy Medical Devices Implanted Type Area Sweatband Maker Device Identifier Shelf Expiration Date Model / Serial / Lot Cable Orth Lcp 750mm Ss 1.7mm Crmp Ns - [id number] Implanted:Qty: 2 on 01/30/2024 by Ang Garibay MD at [facility] Implant Cable Right: Femur DEPClearKarma 09/13/2028 298.801.0 1S / / [id number] Mesh [id number] Pp Pcl Macroporous Parietene Ds 2.4mm Comp Abs Rpl [id number] - [id number] - [id number] Implanted:Qty: 1 on 10/27/2021 by Ridge Cedillo MD at [facility] Mesh N/A: Abdomen Social Growth Technologies[facility]IC [facility] 05/13/2023 [id number] / [id number] / [id number] Nail Im 170mm 12mm 125d Cnn Tfn-Adv Lat Rlf Cut Ti Niobium - [id number] Implanted:Qty: 1 on 01/18/2024 by Ang Garibay MD at [facility] Nail Right: Leg DEPClearKarma 07/13/2033 04.037.21 2S / / [id number] Nail Im 440mm 12mm 125d Cnn Tfn-Adv Lat Rlf Cut Ti Niobium - [id number] Implanted:Qty: 1 on 01/30/2024 by Ang Garibay MD at [facility] Nail Right: Femur DE[employer]learKarma 04/13/2025 04.037.23 4S / / [id number] Screw Bn 95mm 10.35mm Cnn Ti Al Niobium Tfn-Adv 3.5mm Strl - [id number] Implanted:Qty: 1 on 01/18/2024 by Ang Garibay MD at [facility] Screw Right: Leg DEPClearKarma 12/11/2033 04.038.19 5S / / [id number] Screw Bn 38mm 5mm Lck X25 Im Nl - [id number] Implanted:Qty: 1 on 01/18/2024 by Ang Garibay MD at [facility] Screw Right: Leg DEPClearKarma 04/13/2032 04.045.03 8S / / [id number] Screw Bn 95mm 10.35mm Cnn Ti Al Niobium Tfn-Adv 3.5mm Strl - [id number] Implanted:Qty: 1 on 01/30/2024 by Ang Garibay MD at [facility] Screw Right: Femur DEPUY [employer] 09/13/2033 04.038.19 5S / / [id number] Screw Bn 58mm 5mm Lck X25 Im Nl - [id number] Implanted:Qty: 1 on 01/30/2024 by Ang Garibay MD at [facility] Screw Right: Femur DEPU[employer] 02/10/2033 04.045.05 8S / / [id number] Screw Bn 44mm 5mm Lck X25 Im Nl - [id number] Implanted:Qty: 1 on 01/30/2024 by Ang Garibay MD at [facility] Screw Right: Femur [employer]PU[employer] 07/13/2033 04.045.04 4S / / [id number] Procedures Procedure Name Priority Date/Time Associated Diagnosis Comments XR ABDOMEN AP 1 VW Routine 05/20/2025 2: 59 PM EDT Lower abdominal pain, unspecified EMG WITH NCV Routine 04/28/2025 3:49 PM EDT Lumbar radiculopathy History of total right hip replacement History of lumbar discectomy PROSTATIC SPECIFIC ANTIGEN, DIAGNOSTIC Routine 03/20/2025 2:10 PM EDT Benign prostatic hyperplasia, unspecified whether lower urinary tract symptoms present from Last 3 Months Results * X-ray abdomen ap 1 view [...] Bartolo Ruiz MD on 05/20/2025 3:09 PM Guillermo Thornton MD IMG DIAGNOSTIC IMAGING ORDERABL ES Final Result * EMG WITH NCV (04/28/2025 3:49 PM EDT) Narrative MANUALLY TRANSCRIBED RESULTS - 04/29/2025 2:19 PM EDT History: This is a 54-year-old male complaining of pain in the back and paresthesias in the lower extremities. He has history of right hip replacement in January 2024. He has history of diabetes mellitus for the last 12 years. Reason for referral: Rule out neuropathy and lumbosacral radiculopathy. Summary: The right ulnar motor nerve revealed prolonged F-wave latency. Bilateral tibial motor nerves showed decreased conduction velocity and prolonged F-wave latency. Right tibial motor nerve revealed prolonged F-wave latency.. Left tibial motor nerve revealed decreased conduction velocity and prolonged F-wave latency. Right radial sensory nerve was normal. Right sural sensory response was not obtained. The left sural sensory response showed diminished amplitude. Right superficial peroneal sensory response showed diminished amplitude. Left superficial peroneal sensory response was not obtained. Needle EMG was performed of selected muscles of the right leg and the right lumbosacral paraspinal muscles and was within normal. Conclusion: This is an abnormal study. There is electrophysiologic evidence for a sensorimotor neuropathy affecting the lower extremities. There is no evidence for a lumbosacral radiculopathy. Procedure Note Oswald Santana MD - 04/29/2025 History: This is a 54-year-old male complaining of pain in the back andparesthesias in the lower extremities. He has history of right hipreplacement in January 2024. He has history of diabetes mellitus for thelast 12 years. Reason for referral: Rule out neuropathy and lumbosacral radiculopathy. Summary: The right ulnar motor nerve revealed prolonged F-wave latency.Bilateral tibial motor nerves showed decreased conduction velocity andprolonged F-wave latency. Right tibial motor nerve revealed prolongedF-wave latency.. Left tibial motor nerve revealed decreased conductionvelocity and prolonged F-wave latency. Right radial sensory nerve wasnormal. Right sural sensory response was not obtained. The left suralsensory response showed diminished amplitude. Right superficial peronealsensory response showed diminished amplitude. Left superficial peronealsensory response was not obtained. Needle EMG was performed of selectedmuscles of the right leg and the right lumbosacral paraspinal muscles andwas within normal. Conclusion: This is an abnormal study. There is electrophysiologicevidence for a sensorimotor neuropathy affecting the lower extremities.There is no evidence for a lumbosacral radiculopathy. us Alistair Mckeon MD NEUROLOGY ORDERABLES Final Resu lt MANUALLY TRANSCRIBED RESULTS * Prostatic specific antigen, diagnostic (03/20/2025 2:10 PM EDT) PROSTATIC SPEC ANT 0.44 0.00 - 4.00 ng/mL 03/20/2025 10:32 PM EDT [facility] Comment: The method used for this test is Kati Immaculata DXI chemiluminescent immunoassay. Values obtained by different assay methods cannot be used interchangeably. Blood Venipuncture / Unknown 03/20/2025 2:10 PM EDT 03/20/2025 2:10 PM EDT us [facility] BLOOD ORDERABLES Final Result [facility] [address] [place] [address], from Last 3 Months Insurance MEDICARE Advance Directives * Full Code (Latest Code Status on File) Date Activated Date Inactivated Comments 02/03/2024 3:30 PM 02/09/2024 3:10 PM * Full Code Date Activated Date Inactivated Comments 01/29/2024 11:23 AM 02/03/2024 3:24 PM * Full Code Date Activated Date Inactivated Comments 01/22/2024 6:39 PM 01/29/2024 10:03 AM * Full Code Date Activated Date Inactivated Comments 01/17/2024 11:19 AM 01/22/2024 6:23 PM * Full Code Date Activated Date Inactivated Comments 10/31/2021 8:57 PM 11/03/2021 8:13 PM Care Teams Dental Appliance Fixer Relationship Specialty Start Date End Date Francisca Wade MD [address] [place] [address] PCP - General Internal Medicine 07/18/24
--- OUTSIDE RECORDS SUMMARY | 2025-05-20 17:46 | XMS_ITS | Encounter Summary ---
Author Organization [facility] Address [address] [place] [address] Care Team Providers Care Design Engineer Name Role Phone NathanJun fish Artem DO Unavailable [phone] Lorie Ozuna RN Unavailable [phone] Gianna Hodge APRN.[employer]S SALES REPRESENTATIVE Unavailable [phone] Francisca Wade MD Primary Care Provider [phone] Source Comments In the event this information is protected by the Federal Confidentiality of Alcohol and Drug AbusePatient Records regulations: The Federal rules restrict any use of the information to criminally investigate or prosecute any alcohol or drug abuse patient.[facility] Reason for Visit * Reason Comments Refill Request Encounter Details Date Type Department Care Team (Late st Contact Info) Description 04/26/2025 Refill Pain Management [address] [facility] 1 [address] [place] [address] Alistair Mckeon MD [address] [place] [address] Refill Request Social History Tobacco Use Types Packs/Day Years [...] is lower risk 5 11/22/2024 Data from: https://www.neighborhoodatlas.medicine.[facility]/. Last address used for calculation [address] [...] PM EDT Ra patricia Ramsey RN * Because of a physical, mental, or emotional condition, do you have difficulty doing errands alone such as visiting a doctor's office or shopping? Answer Date of Assessment Author No 04/27/2018 4:56 PM JELANIT Ra patricia Ramsey RN documented as of this encounter Mental Status * Because of a physical, mental, or emotional condition, do you have serious difficulty concentrating, remembering, or making decisions? Answer Entry Date Author No 04/27/2018 4:56 PM Ra patricia Tucker RN documented in this encounter Miscellaneous Notes * Telephone Encounter - Guillermo Hooks PA-C - 04/28/2025 4:36 PM EDT Chart Reviewed PDMP Reviewed Patient last seen 04/01/2025. Patient has an appointment scheduled for to be determined. The following approved medication requests have been transmitted electronically. Requested Prescriptions Signed Prescriptions Disp Refills DULoxetine DR (CYMBALTA) 30 mg capsule 60 capsule 2 Sig: TAKE 2 CAPSULES BY MOUTH DAILY Authorizing Provider: GUILLERMO HOOKS PA-C documented in this encounter Plan of Treatment Upcoming Encounters Date Type Department Care Team (Late st Contact Info) Description 08/26/2025 3:30 PM EST Office Visit [facility] [address] [place] [address] [place] [address] 6 Month Follow Up 08/26/2025 3:40 PM EST Visit (SP) Office Hematology/Oncology [address] [place] [address] [place] [address] Alfonzo Crouch MD [address] [place] [address] [place] [address] 6 Month Follow Up documented as of this encounter Visit Diagnoses Diagnosis Radiculopathy, lumbar region Thoracic or lumbosacral neuritis or radiculitis, unspecified Diabetic peripheral neuropathy (HCC) Type II or unspecified type diabetes mellitus with neurological manifestations, not stated as uncontrolled Thrombocytopenia Thrombocytopenia, unspecified History of total right hip replacement H/O lumbar discectomy Personal history of surgery to other organs documented in this encounter Care Teams Design Engineer Relationship Specialty Start Date End Date Francisca Wade MD [address] [place] [address] PCP - General Internal Medicine 12/16/24 Jun Arriola DO Physician Hematology 03/26/18 Lorie Ozuna RN [address] [place] [address] Mat Tester 03/26/18 Gianna Hodge APRN.[facility] [address] [place] [address] [place] [address] Nurse Practitioner Hematology/Oncology 03/26/18 documented as of this encounter
--- OUTSIDE RECORDS SUMMARY | 2025-05-20 17:46 | XMS_ITS | Encounter Summary ---
Author Organization [facility] Address [address] [place] [address] Care Team Providers Care Irrigator Sprinkling System Name Role Phone Ander Arriolaothy Artem DO Unavailable [phone] Lorie Ozuna RN Unavailable [phone] Gianna Hodge APRN.WINDOW/DISTRIBUTION CLERK Unavailable [phone] Francisca Wade MD Primary Care Provider [phone] Source Comments In the event this information is protected by the Federal Confidentiality of Alcohol and Drug AbusePatient Records regulations: The Federal rules restrict any use of the information to criminally investigate or prosecute any alcohol or drug abuse patient.[facility] Encounter Details Date Type Department Care Team (Late st Contact Info) Description 05/02/2025 Patient Msg Pain Recovery [address] [place] [address] Thalia Ramirez PSYD [address] [place] [address] TREK/Empowered [employer] Materials Social History Tobacco Use Types Packs/Day Years [...] is lower risk 5 11/22/2024 Data from: https://www.neighborhoodatlas.medicine.[facility]/. Last address used for calculation [...] Visit [facility] [address] [place] [address] [place] [address] 6 Month Follow Up 08/26/2025 3:40 PM EST Visit (SP) Office Hematology/Oncology [address] [place] [address] Alfonzo Crouch MD [address] [place] [address] 6 Month Follow Up documented as of this encounter Visit Diagnoses Not on filedocumented in this encounter Care Teams Irrigator Sprinkling System Relationship Specialty Start Date End Date Francisca Wade MD [address] [place] [address] PCP - General Internal Medicine 12/16/24 Jun Arriola DO Physician Hematology 03/26/18 Lorie Ozuna, MORE [address] [place] [address] Cardiology Coordinator 03/26/18 Gianna Hodge APRN.WINDOW/DISTRIBUTION CLERK [address] [place] [address] Nurse Practitioner Hematology/Oncology 03/26/18 documented as of this encounter"
--- OUTSIDE RECORDS SUMMARY | 2025-05-20 17:46 | XMS_ITS | Clinical Summary ---
Author Organization [facility] Address [address] [place] [address] Care Team Providers Care Dental Assistant Name Role Phone Savanah Becker NP Unavailable Unallocated, [facility] Provider Primary Care Provi miko Miladis Badillo MD Unavailable [phone] Allergies Active Allergy Reactions Criticality Noted Date Comments Insulin Glargine GI intolerance 12/01/2023 Medications albuterol HFA 90 mcg/act inhaler Inhale 2 puffs every 4 (four) hours if needed Active carvedilol (Coreg) 6.25 MG tablet Twice daily 3 Active cetirizine (ZyrTEC) 10 MG tablet 4 Active citalopram (CeleXA) 20 MG tablet Take 20 mg by mouth in the morning. Active colestipol (Colestid) 1 g tablet Daily 4 Active cyclobenzaprine (Flexeril) 10 MG tablet Take 10 mg by mouth 2 (two) times a day as needed Active Eluxadoline 100 MG tablet 4 Active fenofibrate (Triglide) 160 MG tablet Take 160 mg by mouth in the morning. Active gabapentin (Neurontin) 800 MG tablet 4 Active OneTouch Verio test strip USE TO TEST BLOOD SUGAR TWICE DAILY DIRECTED 4 Active hydroCHLOROthiazid e (HYDRODiuril) 25 MG tablet Daily 3 Active hyoscyamine (Anaspaz,Levsin) 0.125 MG tablet Four times daily 4 Active Fiasp FlexTouch 100 UNIT/ML injection 4 Active Tresiba FlexTouch 100 UNIT/ML injection ADMINISTER 40 UNITS UNDER THE SKIN EVERY DAY 4 Active B-D ULTRAFINE III SHORT PEN 31G X 8 MM misc USE DIRECTED FOUR TIMES DAILY 4 Active Lancets (OneTouch Delica Plus Vasnmy38O) misc USE DIRECTED ONCE DAILY 3 Active linaGLIPtin-metFOR MIN (Jentadueto) 2.5-1000 MG tablet 1 tablet 4 Active losartan (Cozaar) 100 MG tablet Take 100 mg by mouth Daily 4 Active omeprazole (PriLOSEC) [address] capsule TAKE 1 CAPSULE BY MOUTH TWICE DAILY 30 MINUTES BEFORE BREAKFAST AND EVENING MEAL Active ondansetron ODT (Zofran-ODT) 4 MG disintegrating tablet Twice daily 4 Active Xifaxan 550 MG tablet Take 550 mg by mouth in the morning and 550 mg before bedtime. Active Ozempic, 0.25 or 0.5 MG/DOSE, 2 MG/3ML solution pen-injector Inject 0.5 mg under the skin 1 (one) time per week Active sucralfate (Carafate) 1 g tablet TAKE 1 TABLET BY MOUTH THREE TIMES DAILY ON AN EMPTY STOMACH Active tamsulosin (Flomax) 0.4 MG 24 hr capsule Take 0.4 mg by mouth Daily Active traZODone (Desyrel) 50 MG tablet Take 50 mg by mouth at bedtime Active Active Problems Problem Noted Date Diagnosed Date Acute pain of left shoulder 01/03/2024 Cervical radiculopathy 01/03/2024 Family History Medical History Relation Name Comments Heart attack Father Relation Name Status Comments Father Mother Alive Social History Tobacco Use Types Packs/Day Years Used Date Smoking Tobacco: Every Day Cigarettes Smokeless Tobacco: Never Tobacco Cessation:Ready to Q uit: Not Asked; Counseling Given: Not Answered Alcohol Use Standard Drinks/Week Comments Not Currently 0 (1 standard drink = 0.6 oz pur e alcohol) Sex and Gender Information Value Date Recorded Sex Assigned at Male 12/05/2023 11:54 PM EDT Legal Sex Male 8:05 PM EDT Gender Identity Male 12/05/2023 11:54 PM EDT Sexual Orientation Straight 12/05/2023 11 :54 PM EDT Last Filed Vital Signs Vital Sign Reading Time Taken Comments Blood Pressure 142/84 04/30/2019 12:00 PM EDT Pulse - - Temperature - - Respiratory Rate - - Oxygen Saturation - - Inhaled Oxygen Concentration - - Weight 116 kg (255 lb) 12/12/2023 10:54 AM EDT Height 185.4 cm (6' 1 ) 12/12/2023 10:54 AM EDT Body Mass Index 33.64 12/12/2023 10:54 AM EDT Plan of Treatment Health Maintenance Due Date Last Done Comments CT Colonography 1968 Colonoscopy 1968 Colorectal Cancer Screening 1968 FIT-DNA 1968 FIT 1968 FOBT 1968 Medicare Annual Wellness (AWV) 1968 Sigmoidoscopy 1968 Influenza Vaccine (#1) 2025 Insurance MEDICARE Care Teams Dental Assistant Relationship Specialty Start Date End Date Unallocated, Diana Matos MD [address] [place], [place] [id number] PCP - General Family Medicine 12/12/23 Savanah Becker NP [address] [place] [address] Referring Physician Family Medicine 12/12/23 Miladis Badillo MD On license of [facility] [place] [address] Referring Physician Family Medicine 07/19/24
--- OUTSIDE RECORDS SUMMARY | 2025-05-20 17:46 | XMS_ITS | Encounter Summary ---
Author Organization [facility] Address [place] [address] Care Team Providers Care Professor Of Education Name Role Phone Jun Arriola DO Unavailable [phone] Lorie Ozuna RN Unavailable [phone] Gianna Hodge APRN.TOLL BRIDGE OPERATOR Unavailable [phone] Guy Du PA-C Primary Care Provider Francisca Wade MD Primary Care Provider [phone] Source Comments In the event this information is protected by the Federal Confidentiality of Alcohol and Drug AbusePatient Records regulations: The Federal rules restrict any use of the information to criminally investigate or prosecute any alcohol or drug abuse patient.[facility] Reason for Visit * Reason Comments Patient Question Encounter Details Date Type Department Care Team (Late st Contact Info) Description 12/03/2024 Telephone Anesthesia [place] [address] [place] [address] Abrahan Rinaldi MD [address] [place], [place] [id number] Patient Question Social History Tobacco Use Types Packs/Day Years [...] is lower risk 5 11/22/2024 Data from: https://www.neighborhoodatlas.[facility]/. Last address used for calculation [address] [...] Entry Date Author No 04/27/2018 4:56 PM JELANIT Ra patricia Ramsey RN documented in this encounter Miscellaneous Notes * Telephone Encounter - Citlalli Layton LPN - 12/03/2024 1:57 PM EDT Called spoke with patient, made aware of provider's message below. Explained that ASC will call himwith his arrival time the day before his procedure. * Telephone Encounter - Tete Saucedo PA-C - 12/03/2024 12:34 PM EDT No call from Tete Saucedo PA-C. It appears he spoke with Tawanna Mahoney, yesterday to schedule transforaminal Epidural steroid injection. Tete Saucedo PA-C December 03, 2024 * Telephone Encounter - Deepa Fragoso - 12/03/2024 12:21 PM EDT Carlo is calling Abrahan Rinaldi MD today with concern regarding Patient Question. Patient states he received a call to around Noon and got an automated message and the the call dropped. Patient insistent that the message came from the office of Dr. Rinaldi. Unable to locate any messages in epic from the patient. Consulted with Juan José in office clerical to confirm- patient was not called from the clerical team. Patient asking for a message to be sent Did in office clinical staff call the patient? Patient has been identified by name and birthdate. Duration of symptoms: N/A Person calling: self Call patient at: at home and on cell [phone] (home) [phone] (cell) Was an appointment scheduled: No Closing statement: Results or non-symptom based questions: Thank you for calling [facility], your call will be returned within the next business day. Deepa Fragoso documented in this encounter Plan of Treatment Upcoming Encounters Date Type Department Care Team (Late st Contact Info) Description 08/26/2025 3:30 PM EST Office Visit [facility] [address] [place] [address] [place] [address] 6 Month Follow Up 08/26/2025 3:40 PM EST Visit (SP) Office Hematology/Oncology [facility] [place] [address] Alfonzo Crouch MD [address] [place] [address] [place] [address] 6 Month Follow Up documented as of this encounter Visit Diagnoses Not on filedocumented in this encounter Care Teams Professor Of Education Relationship Specialty Start Date End Date Guy Du PA-C [address] [place] [address] [place] [address] PCP - General Internal Medicine 04/09/18 12/15/24 Francisca Wade MD [address] [place] [address] PCP - General Internal Medicine 12/16/24 Jun Arriola DO Physician Hematology 03/26/18 Lorie Ozuna, MORE [facility] [place] [address] Gleason Gear Generator 03/26/18 Gianna Hodge APRN.CNP [address] [place] [address] [place] [address] Nurse Practitioner Hematology/Oncology 03/26/18 documented as of this encounter
--- OUTSIDE RECORDS SUMMARY | 2025-05-20 17:46 | XMS_ITS | Encounter Summary ---
Author Organization [employer] Address [id number] [address] [place] [address] Care Team Providers Care Accounts Receivable Executive Name Role Phone Francisca Wade MD Primary Care Provider [phone] Encounter Details Date Type Department Care Team (Latest Contact Info) Description 01/29/2024 Orders Only [facility] [address] [place] [address] Connie Corbin RN Closed displaced intertrochanteric fracture of right femur with routine healing, subsequent encounter (Primary Dx) Social History Tobacco Use Types Packs/Day Years Used Date Smoking Tobacco: Every Day Cigarettes 0.5 20 Smokeless Tobacco: Never Alcohol Use Standard Drinks/Week Comments Not Currently 0 (1 standard drink = 0.6 oz pur e alcohol) [facility] Utilities Answer Date Recorded In the past 12 months has [employer], gas, oil, or water [employer] threatened to shut off services in your home? No 01/29/2024 Social Connection and Isolat ion Panel [NHANES] Answer Date Recorded In a typical week, how many times do you talk on the phone with family, friends, or neighbors? More than three times a week 01/22/2024 How often do you get togethe r with friends or relatives? More than three times a week 01/22/2024 How often do you attend chur ch or methodist services? Never 01/22/2024 Do you belong to any clubs o r organizations such as yazidism groups, unions, fraternal or athletic groups, or school groups? No 01/22/2024 How often do you attend meet ings of the clubs or organizations you belong to? Never 01/22/2024 Are you , , di vorced, , never , or living with a partner? 01/22/2024 AUDIT-C Answer Date Recorded Q1: How often do you have a drink containing alcohol? Never 01/22/2024 Q2: How many drinks containi ng alcohol do you have on a typical day when you are drinking? Patient does not drink Q3: How often do you have si x or more drinks on one occasion? Never 01/22/2024 Overall Financial Resource Strain (CARDIA) Answe r Date Recorded How hard is it for you to pa y for the very basics like food, housing, medical care, and heating? Not hard at all 01/22/2024 PHQ-2 Answer Date Recorded Total Score 2 01/22/2024 [facility] - Occupational Stress Questionnaire Answer Date Recorded Do you feel stress - tense, restless, nervous, or anxious, or unable to sleep at night because your mind is troubled all the time - these days? Not at all 01/22/2024 Exercise Vital Sign Answer Date Recorde d On average, how many days pe r week do you engage in moderate to strenuous exercise (like a brisk walk)? 0 days 01/22/2024 On average, how many minutes do you engage in exercise at this level? 0 min 01/22/2024 PRAPARE - Transportation Answer Date Re corded In the past 12 months, has l ack of transportation kept you from medical appointments or from getting medications? No 01/12 In the past 12 months, has l ack of transportation kept you from meetings, work, or from getting things needed for daily living? No 01/29/2024 Housing Instability Answer Date Recorde d Are you worried or concerned that in the next two months you may not have stable housing that you own, rent or stay in as a part of a household? No 01/29/2024 Childcare Answer Date Recorded Do problems getting child ca re make it difficult for you to work or study? No 01/22/2024 Employment Answer Date Recorded Do you need help finding a the [facility] career center and/or a training program? No 01/22/2024 Hunger Screening Answer Date Recorded Within the past 12 months we worried whether our food would run out before we got money to buy more. Never True 01/29/2024 Within the past 12 months th e food we bought just didn't last and we didn't have money to get more. Never True 01/29/2024 Purpose - Life Answer Date Recorded I have a purpose and direction in my life. Agree 01/22/2024 Sex and Gender Information Value Date Recorded Sex Assigned at Male 08/11/2021 6:01 PM EST Legal Sex Male 10:25 AM EST Gender Identity Male 08/11/2021 6:01 PM EST Sexual Orientation Straight 08/11/2021 6: 01 PM EST documented as of this encounter Functional Status documented as of this encounter Mental Status * Question Answer Entry Date Author Overall Cognitive Status X 01/29/2024 2:37 PM EDT Breana Mariee OTR/L documented in this encounter Plan of Treatment Upcoming Encounters Date Type Department Care Team (Late st Contact Info) Description 05/21/2025 9:45 AM EDT Office Visit [facility] [address] [place] [address] [address] [facility] [place] [address] Jeni Gillis PA [address] [place] [id number] 05/26/2025 3:15 PM EDT Office Visit [facility] [address] [place] [address] [address] [facility] [place] [id number] Sid Alves MD [address] [place] [address] documented as of this encounter Goals Goal Patient Goal Type Associated Problems Recent Progress Patient-Stated? Author to improve mobility and get home General Yes Citlalli Goode, RN Note: Evaluation of progress towards goal: Participating in therapy <enter goal here> General Yes Chika Ramsey LSW Note: Evaluation of progress towards goal: pt plans to return [facility] [place] documented as of this encounter Results * X-ray femur right 2+ views (01/29/2024 9:29 AM EDT) Anatomical Region Laterality Modality Femur Right Computed Radiogr aphy 01/30/2024 6:36 AM EDT Narrative 01/30/2024 6:37 AM EDT Clinical history: Fracture. Right femur: 01/29/2024 COMPARISON: 01/17/2024 FINDINGS: Patient status post internal fixation of a proximal femoral fracture. No hardware complication is evident. Fracture alignment appears near-anatomic, characterization is difficult. There is no focal osseous abnormality in the distal femur. IMPRESSION: Status post internal fixation of the proximal femoral fracture. Finalized by Jun Ortega MD on 01/30/2024 6:37 AM Procedure Note Jun Ortega MD - 01/30/2024 Clinical history: Fracture. Right femur: 01/29/2024 COMPARISON: 01/17/2024 FINDINGS: Patient status post internal fixation of a proximal femoral fracture. Nohardware complication is evident. Fracture alignment appearsnear-anatomic, characterization is difficult. There is no focal osseousabnormality in the distal femur. IMPRESSION: Status post internal fixation of the proximal femoral fracture. Finalized by Jun Ortega MD on 01/30/2024 6:37 AM Ang Garibay MD IMG DIAGNOSTIC IMAGING ORDERABLE S Final Result documented in this encounter Visit Diagnoses Diagnosis Closed displaced intertrochanteric fracture of right femur with routine healing, subsequent encounter- Primary Closed displaced intertrochanteric fracture of right femur with routine healing, subsequent encounter documented in this encounter Additional Health Concerns Infection Onset Date Last Indicated Resolved Time Respiratory Rule-Out 05/05/2025 05/05/2025 025 6:05 PM EDT Assessment Noted Time PHQ-9 Depression Total Score: 2 01/22/20 24 7:50 PM EDT documented as of this encounter Care Teams Accounts Receivable Executive Relationship Specialty Start Date End Date Francisca Wade MD [address] [place] [address] PCP - General Internal Medicine 07/18/24 documented as of this encounter
--- OUTSIDE RECORDS SUMMARY | 2025-05-20 17:46 | XMS_ITS | Encounter Summary ---
Author Organization [facility] Address [facility] [place] [address] Care Team Providers Care Generator Mechanic Name Role Phone Nathanradhaargelia Jun Artem DO Unavailable [phone] Lorie Ozuna RN Unavailable [phone] Gianna Hodge APRN.CHIEF DEPUTY COURT CLERK Unavailable [phone] Francisca Wade MD Primary Care Provider [phone] Source Comments In the event this information is protected by the Federal Confidentiality of Alcohol and Drug AbusePatient Records regulations: The Federal rules restrict any use of the information to criminally investigate or prosecute any alcohol or drug abuse patient.[facility] Encounter Details Date Type Department Care Team (Late st Contact Info) Description 01/16/2025 Patient Msg Pain Management [address] [place] [address] Alistair Mckeon MD [address] [place] [address] Appointment Request Social History Tobacco Use Types Packs/Day [...] is lower risk 5 11/22/2024 Data from: https://www.neighborhoodatlas.[facility]/. Last address used for calculation [address] [...] patricia Ramsey RN documented in this encounter Plan of Treatment Upcoming Encounters Date Type Department Care Team (Late st Contact Info) Description 08/26/2025 3:30 PM EST Office Visit [facility] [address] [place] [address] [place] [address] 6 Month Follow Up 08/26/2025 3:40 PM EST Visit (SP) Office Hematology/Oncology [address] [place] [address] [place] [address] Alfonzo Crouch MD [address] [place] [address] 6 Month Follow Up documented as of this encounter Visit Diagnoses Not on filedocumented in this encounter Care Teams Generator Mechanic Relationship Specialty Start Date End Date Francisca Wade MD [address] [place] [address] PCP - General Internal Medicine 12/16/24 Jun Arriola DO Physician Hematology 03/26/18 Lorie Ozuna, MORE [address] [place] [address] [place] [address] Hospice Superintendent 03/26/18 Gianna Hodge APRN.CHIEF DEPUTY COURT CLERK [address] [place] [address] Nurse Practitioner Hematology/Oncology 03/26/18 documented as of this encounter
--- OUTSIDE RECORDS SUMMARY | 2025-05-20 17:46 | XMS_ITS | Clinical Summary ---
Author Organization [facility] Address [address] [place] [address] Care Team Providers Care Enroute Controller Name Role Phone NathanJun fish Artem DO Unavailable [phone] Lorie Ozuna RN Unavailable [phone] Gianna Hodge APRN.COMMUNITY RELATIONS SPECIALIST Unavailable [phone] Francisca Wade MD Primary Care Provider [phone] Allergies Active Allergy Reactions Criticality Noted Date Comments Clindamycin Other: See Comments 11/28/2024 Insulin Glargine GI Upset Low 12/01/2023 basaglar Medications traZODone (DESYREL) 50 mg tabletIndicatio ns:Malignant neoplasm of descending colon (HCC) Take 50 mg by mouth daily at bedtime. Active linagliptin-met FORMIN (JENTADUETO) 2.5-1,000 mg tabIndications: Malignant neoplasm of descending colon (HCC) Take by mouth. Act remington hydroCHLOROthia zide (HYDRODIURIL, ESIDRIX) 25 mg tabletIndicatio ns:Malignant neoplasm of descending colon (HCC) Take 25 mg by mouth once daily. Active Fenofibrate (LOFIBRA) 160 mg tabletIndicatio ns:Malignant neoplasm of descending colon (HCC) Take 160 mg by mouth once daily. Active citalopram (CELEXA) 40 mg tabletIndicatio ns:Malignant neoplasm of descending colon (HCC) Take 40 mg by mouth once daily. Active tamsulosin ER (FLOMAX) 0.4 mg cap Take 1 capsule by mouth once daily. 30 capsule 018 Active colestipol (COLESTID) 1 gram tablet Take 1 g by mouth two times a day. Active sucralfate (CARAFATE) 1 gram tablet Take 1 g by mouth three times a day. Active eluxadoline (VIBERZI) 100 mg tab Take 100 mg by mouth two times a day. Active albuterol HFA (PROVENTIL HFA, VENTOLIN HFA) 90 mcg/actuation inhaler Inhale 2 puffs as instructed. Active semaglutide 0.25 mg/0.5 mL (0.5 mg/mL) subcutaneous compounded injection Inject subcutaneously one time a week. Active atorvastatin (LIPITOR) 40 mg tablet Take 40 mg by mouth once daily. Active magnesium oxide 400 mg magnesium cap Take 400 mg by mouth once daily. Active cyclobenzaprine (FLEXERIL) 10 mg tablet Take 10 mg by mouth three times a day. Active losartan (COZAAR) 50 mg tablet Take 50 mg by mouth once daily. Active hyoscyamine (LEVSIN) 0.125 mg tablet Take 0.125 mg by mouth. 024 Active omeprazole (PRILOSEC) 40 mg capsule Take 40 mg by mouth. 024 Active XIFAXAN 550 mg tablet Take 550 mg by mouth. Active gabapentin (NEURONTIN) 400 mg capsule Take 400 mg by mouth three times a day. Active carvedilol (COREG) 3.125 mg tablet Take 3.125 mg by mouth two times a day with meals. Active DULoxetine DR (CYMBALTA) 30 mg capsuleIndicati ons:Radiculopat hy, lumbar region,Diabetic peripheral neuropathy (HCC),Thrombocy topenia,History of total right hip replacement,H/O lumbar discectomy TAKE 2 CAPSULES BY MOUTH DAILY 60 capsule 2 025 Active DULoxetine (CYMBALTA) 30 mg capsuleIndicati ons:Radiculopat hy, lumbar region,Diabetic peripheral neuropathy (HCC),Thrombocy topenia,History of total right hip replacement,H/O lumbar discectomy Take 2 capsules by mouth once daily. 60 capsule 2 025 2024 Discontinued Active Problems Problem Noted Date Diagnosed Date Acute right-sided low back pain with right-sided sciatica 11/25/2024 Thrombocytopenia 11/25/2024 History of total right hip replacement Diabetic peripheral neuropathy 11/25/2024 Radicular syndrome of right leg 11/25/2024 History of lumbar laminectomy 04/23/2018 Colon cancer 03/21/2018 Overview (03/21/2018): Added automatically from request for surgery [id number] Diabetes Hypertension Encounters Date Type Department Care Team Description 05/12/2025 10:30 AM EDT [facility] [address] [place] [address] Guillermo Hooks PA-C Polyneuropathy (Primary Dx); Radiculopathy, lumbar region; History of lumbar laminectomy; Chronic pain syndrome 05/02/2025 1:00 PM EDT [facility] [address] [id number] Thalia Ramirez PSYD Current moderate episode of major depressive disorder without prior episode (HCC) (Primary Dx); Radiculopathy, lumbar region; Diabetic peripheral neuropathy (HCC); Thrombocytopenia; History of total right hip replacement; H/O lumbar discectomy 05/02/2025 Patient Msg Pain Recovery [address] [place] [address] Thalia Ramirez PSYD [employer] 05/02/2025 Telephone Pain Management [address] [place] [address] Alistair Mckeon MD Patient Question (EMG results) 04/30/2025 Travel 04/26/2025 Refill Pain Management [address] [place] [address] Alistair Mckeon MD Refill Request 04/01/2025 4:00 PM EDT [facility] [address] [place] [address] Alistair Mckeon MD Radiculopathy, lumbar region (Primary Dx); Diabetic peripheral neuropathy (HCC); History of total right hip replacement; H/O lumbar discectomy; Polyneuropathy 03/24/2025 Telephone Pain Management [address] [place] [address] Alistair Mckeon MD 03/24/2025 Social Work Hematology/Oncolog y [address] [place] [address] Ashley Cagle LSW 03/19/2025 10:00 AM EDT [facility] [address] [place] [address] Thalia Ramirez, PSYD Current moderate episode of major depressive disorder without prior episode (HCC) (Primary Dx); Radiculopathy, lumbar region; Diabetic peripheral neuropathy (HCC); Thrombocytopenia; History of total right hip replacement; H/O lumbar discectomy 02/21/2025 2:15 PM EDT Office Visit Pain Management [address] [place] [address] Alistair Mckeon MD Radiculopathy, lumbar region; Diabetic peripheral neuropathy (HCC); Thrombocytopenia; History of total right hip replacement; H/O lumbar discectomy; Polyneuropathy 02/21/2025 Social Work Hematology/Oncolog y [address] [place] [address] Ashley Cagle LSW 02/20/2025 2:20 PM EDT Visit (SP) Office Hematology/Oncolog y [address] [place] [address] Alfonzo Crouch MD Thrombocytopenia (Primary Dx); Malignant neoplasm of colon, unspecified part of colon (HCC); Elevated carcinoembryonic antigen (CEA) 02/18/2025 Travel from Last 3 Months Immunizations Immunization Administration Dates Next Due influenza (IIV4) vaccine, ag e 6 mo - 64 yr, quadrivalent, PF (AFLURIA, FLUARIX, FLULAVAL, FLUZONE) 04/25/2018(Deferred: Patient Refused - wants to wait) Family History Medical History Relation Comments Heart Attack Father at 59. Mult iple CABG, defib Relation Status Comments Father Mother Alive Social History Tobacco Use Types Packs/Day Years Used Date Smoking Tobacco: Former Cigarettes Q uit: 2010 Smokeless Tobacco: Never Tobacco Cessation:Counseling Given: Not Answered Alcohol Use Standard Drinks/Week Comments No 0 (1 standard drink = 0.6 oz pur e alcohol) PHQ-2 Answer Date Recorded PHQ-2 score 3 03/18/2025 Area Deprivation Index Answer Date Justyn rded National Score (1-100), lower number is lower ri sk 71 11/22/2024 State Score (1-10), lower number is lower risk 5 11/22/2024 Data from: https://www.neighborhoodatlas.medicine.[facility]/. Last address used for calculation [address] 11/22/2024 Sex and Gender Information Value Date Recorded Sex Assigned at Male 11/08/2024 4:06 PM EDT Legal Sex Male 8:44 AM EDT Gender Identity Male 11/08/2024 4:06 PM EDT Sexual Orientation Straight 11/08/2024 4: 06 PM EDT Last Filed Vital Signs Vital Sign Reading Time Taken Comments Blood Pressure 146/91 02/21/2025 2:35 PM EDT Pulse 98 02/21/2025 2:35 PM EDT Temperature 36.4 C (97.6 F) 02/20/2025 2:40 PM EDT Respiratory Rate 16 02/21/2025 2:35 PM EDT Oxygen Saturation 100% 02/20/2025 2:40 PM EDT Inhaled Oxygen Concentration - - Weight 108.2 kg (238 lb 8.6 oz) 02/20/2025 2:40 PM EDT Height 185.4 cm (6' 0.99 ) 02/20/2025 2:40 PM ED T Body Mass Index 31.48 02/20/2025 2:40 PM EDT Plan of Treatment Upcoming Encounters Date Type Department Care Team (Late st Contact Info) Description 08/26/2025 3:30 PM EST Office Visit [facility] [address] [place] [address] [place] [address] 6 Month Follow Up 08/26/2025 3:40 PM EST Visit (SP) Office Hematology/Oncology [address] [place] [address] Alfonzo Crouch MD [address] [place] [address] 6 Month Follow Up Health Maintenance Due Date Last Done Comments Diabetic Foot Exam 1978 Dilated Retinal Exam 1978 Urine Albumin:Creatinine Ratio 1978 Annual PCP Team Chronic Disease Visit 1986 Anxiety Screening 1986 Depression Screening 1986 HIV Screening 1986 LDL Cholesterol 1986 DTaP,Tdap,Td Vaccine (1 - Tdap) 1987 Hepatitis B Vaccine (1 of 3 - 19+ 3-dose series) 1987 Pneumococcal Vaccine: 50+ (1 of 2 - PCV) 1987 Medicare Annual Wellness Visit 11/12/2012 CT Colonography 2013 Cologuard (FIT-DNA) 2013 Colonoscopy 2013 Colorectal Cancer Screening 2013 Fecal Occult Blood 2013 Sigmoidoscopy 2013 Shingrix Vaccine (1 of 2) 2018 HbA1C 07/19/2024 01/18/2024 Covid-19 Vaccine (3 - season) 04/14/202508/2020, 03/24/2021 Influenza Vaccine (#1) 2025 Prostate Cancer Screening Discussion 03/20/203002/2025 Hepatitis C Screening Completed 05/28/2018, 018 Procedures Procedure Name Priority Date/Time Associated Diagnosis Comments CEA BLD Routine 02/20/2025 3:10 PM EDT Thrombocytopenia Elevated carcinoembryonic antigen (CEA) COMPREHENSIVE METABOLIC PANEL Routine 02/20/2025 3:10 PM EDT Thrombocytopenia CBC + DIFF Routine 02/20/2025 3:10 PM EDT Thrombocytopenia HEP REMOTE PANEL BL Routine 05/28/2018 3 :01 PM EDT Malignant neoplasm of colon, unspecified part of colon (HCC) from Last 3 Months or Most Recently Relevant to Health Maintenance Results * (ABNORMAL) COMPREHENSIVE METABOLIC PANEL (02/20/2025 3:10 PM EDT) Protein, Total 8.0 6.3 - 8.0 g/dL 02/20/2025 3:36 PM EDT [facility] Albumin 4.9 3.9 - 4.9 g/dL 02/20/2025 3:36 PM EDT [facility] Calcium, Total 10.4(H) 8.5 - 10.2 mg/dL 02/20/2025 3:36 PM EDT [facility] Bilirubin, Total 0.4 0.2 - 1.3 mg/dL 02/20/2025 3:36 PM EDT [facility] Alkaline Phosphatase 69 38 - 113 U/L 02/20/2025 3:36 PM EDT [facility] AST 16 14 - 40 U/L 02/20/2025 3:36 PM EDT [facility] ALT 8(L) 10 - 54 U/L 02/20/2025 3:36 PM EDT [facility] Glucose 145(H) 74 - 99 mg/dL 02/20/2025 3:36 PM EDT [facility] Comment: The [place] Diabetes Association (ADA) provides guidance for cutoff [...] Standards of Medical Care in Diabetes 2016, [place] Diabetes Association. Diabetes Care. 2016.39(Suppl 1). BUN 14 9 - 24 mg/dL 02/20/2025 3:36 PM EDT [facility] Creatinine 0.97 0.73 - 1.22 mg/dL 02/20/2025 3:36 PM EDT [facility] Sodium 138 136 - 144 mmol/L 02/20/2025 3:36 PM EDT [facility] Potassium 4.1 3.7 - 5.1 mmol/L 02/20/2025 3:36 PM EDT [facility] Chloride 100 98 - 107 mmol/L 02/20/2025 3:36 PM EDT [facility] CO2 26 22 - 30 mmol/L 02/20/2025 3:36 PM EDT [facility] Anion Gap 12 8 - 15 mmol/L 02/20/2025 3:36 PM EDT [facility] Estimated Glomerular Filtration Rate 92 >=60 mL/min/1. 73m 02/20/2025 3:36 PM EDT [facility] Comment:Estimated Glomerular Filtration Rate (eGFR) is calculated using the 2020 CKD-EPI creatinine equation. This equation utilizes serum creatinine, sex, and age as parameters. The creatinine assay has traceable calibration to isotope dilution- mass spectrometry. Refer to KDIGO guidelines for clinical interpretation. In patients with unstable renal function, e.g. those with acute kidney injury, the eGFR may not accurately reflect actual GFR. Blood BLOOD SPECIMEN / Unknown Venipuncture / Unknown 02/20/2025 3:10 PM EDT 02/20/2025 3:10 PM EDT us Alfonzo Crouch MD LABORATORY Final Res ult [facility] [address] [place] [address] * (ABNORMAL) CARCINOEMBRYONIC ANTIGEN (02/20/2025 3:10 PM EDT) CEA 3.4(H) <=2.9 ng/mL 02/21/2025 12:02 PM EDT [facility] Comment: Carcinoembryonic antigen test is used as an aid in monitoring response to treatment or recurrence in patients with established colorectal, breast, lung, prostatic, pancreatic, and ovarian carcinomas. Clinical correlation is required. The Carcinoembryonic antigen test was performed using the Kati Gendel Unicel DXI paramagnetic particle chemiluminescent immunoassay method. Results obtained with different assay methods or kits cannot be used interchangeably. Blood BLOOD SPECIMEN / Unknown Venipuncture / Unknown 02/20/2025 3:10 PM EDT 02/20/2025 3:10 PM EDT us Alfonzo Crouch MD LABORATORY Final Res ult [facility] [address] [facility] [address] [address], [place] * COMPLETE BLOOD COUNT AND DIFFERENTIAL (02/20/2025 3:10 PM EDT) WBC 9.58 3.70 - 11.00 k/uL 02/20/2025 3:13 PM EDT [facility] RBC 5.60 4.20 - 6.00 m/uL 02/20/2025 3:13 PM EDT [facility] Hemoglobin 15.7 13.0 - 17.0 g/dL 02/20/2025 3:13 PM EDT [facility] Hematocrit 48.0 39.0 - 51.0 % 02/20/2025 3:13 PM EDT [facility] MCV 85.7 80.0 - 100.0 fL 02/20/2025 3:13 PM EDT [facility] MCH 28.0 26.0 - 34.0 pg 02/20/2025 3:13 PM EDT [facility] MCHC 32.7 30.5 - 36.0 g/dL 02/20/2025 3:13 PM EDT [facility] RDW-CV 14.7 11.5 - 15.0 % 02/20/2025 3:13 PM EDT [facility] Platelet Count 164 150 - 400 k/uL 02/20/2025 3:13 PM EDT [facility] MPV 12.3 9.0 - 12.7 fL 02/20/2025 3:13 PM EDT [facility] Neutrophils % 65.7 % 02/20/2025 3:13 PM EDT [facility] Abs Neut 6.29 1.45 - 7.50 k/uL 02/20/2025 3:13 PM EDT [facility] Lymphocytes % 25.6 % 02/20/2025 3:13 PM EDT [facility] Abs Lymph 2.45 1.00 - 4.00 k/uL 02/20/2025 3:13 PM EDT [facility] Monocytes % 7.5 % 02/20/2025 3:13 PM EDT [facility] Abs [place] 0.72 <0.87 k/uL 02/20/2025 3:13 PM EDT [facility] Eosinophils % 0.3 % 02/20/2025 3:13 PM EDT [facility] Abs Eosin 0.03 <0.46 k/uL 02/20/2025 3:13 PM EDT [facility] Basophils % 0.6 % 02/20/2025 3:13 PM EDT [facility] Abs Baso 0.06 <0.11 k/uL 02/20/2025 3:13 PM EDT [facility] Immature Granulocytes % 0.3 % 02/20/2025 3:13 PM EDT [facility] Abs Immature Gran 0.03 <0.10 k/uL 025 3:13 PM EDT [facility] NRBC 0.0 /100 WBC 02/20/2025 3:13 PM EDT [facility] Absolute nRBC <0.01 <0.01 k/uL 02/20/2025 3:13 PM EDT [facility] Diff Type Auto 02/20/2025 3:13 PM EDT [facility] Blood BLOOD SPECIMEN / Unknown Venipuncture / Unknown 02/20/2025 3:10 PM EDT 02/20/2025 3:10 PM EDT us Alfonzo Crouch MD LABORATORY Final Res ult [facility] [address] [place] [address] * (ABNORMAL) HEP REMOTE PANEL BL (05/28/2018 3:01 PM EDT) Hep B Core Ab, Total Negative Negative 05/29/2018 11:56 AM EDT [facility] Hep C Antibody IA Positive(A) Negative 05/29/2018 11:57 AM EDT [facility] Comment:Confirmation with He gabbie Lea RNA has been ordered and charged. HBsAg Negative Negative 05/29/2018 11:56 AM EDT [facility] Hep B Surface Ab, Qual Negative Negative 05/29/2018 11:57 AM EDT [facility] Comment:NEGATIVE Blood specimen (specimen) BLOOD SPECIMEN / Unknown 05/28/2018 3:01 PM EDT 05/28/2018 3:04 PM EDT Jun Arriola DO LABORATORY Edited Re sult - Final [facility] [address] [place] [address] from Last 3 Months or Most Recently Relevant to Health Maintenance Insurance MEDICARE Advance Directives Documents on File Type Date Recorded Patient Pre Sales Network Engineer Expl anation Advance Directive(s) 04/06/2018 2:06 PM Care Teams Enroute Controller Relationship Specialty Start Date End Date Francisca Wade MD [address] [place] [address] PCP - General Internal Medicine 12/16/24 Jun Arriola DO Physician Hematology 03/26/18 Lorie Ozuna RN [address] [place] [address] Loan Operations Manager 03/26/18 Gianna Hodge APRN.COMMUNITY RELATIONS SPECIALIST [address] [place] [address] Nurse Practitioner Hematology/Oncology 03/26/18
--- OUTSIDE RECORDS SUMMARY | 2025-05-20 17:46 | XMS_ITS | Encounter Summary ---
Author Organization [facility] tem Address [id number] [address] [place] [address] Care Team Providers Care Tool Machine Setup Operator Name Role Phone Francisca Wade MD Primary Care Provider [phone] Encounter Details Date Type Department Care Team (Late st Contact Info) Description 04/07/2021 Orders Only [facility] - Acute Care [address] [place] [phone] Marguerite Singer Social History Tobacco Use Types Packs/Day Years Used Date Smoking Tobacco: Every Day Cigarettes Smokeless Tobacco: Never Alcohol Use Standard Drinks/Week Comments No 0 (1 standard drink = 0.6 oz pur e alcohol) Childcare Answer Date Recorded Childcare Unknown 01/23/2019 Employment Answer Date Recorded Employment Unknown 01/23/2019 Purpose - Life Answer Date Recorded Purpose and direction in life Unknown Sex and Gender Information Value Date Recorded Sex Assigned at Male 08/11/2021 6:01 PM EST Legal Sex Male 10:25 AM EST Gender Identity Male 08/11/2021 6:01 PM EST Sexual Orientation Straight 08/11/2021 6: 01 PM EST COVID-19 Exposure Response Date Recorded In the last month, have you been in contact with someone who was confirmed or suspected to have Coronavirus / COVID-19? No / Unsure 04/06/2021 11:35 AM EDT documented as of this encounter Plan of Treatment Upcoming Encounters Date Type Department Care Team (Late st Contact Info) Description 05/21/2025 9:45 AM EDT Office Visit [facility] [address] [place] [address] [place] [address] Jeni Gillis PA [address] [place] [address] 05/26/2025 3:15 PM EDT Office Visit [facility] [address] [place] [address] [place] [address] Sid Alves MD [address] [place] [address] documented as of this encounter Visit Diagnoses Not on filedocumented in this encounter Additional Health Concerns Infection Onset Date Last Indicated Resolved Time COVID-19 Rule-Out 07/02/2021 07/02/2021 07/02/2021 5:21 PM EST COVID-19 Positive 07/02/2021 07/02/2021 07/23/2021 11:13 PM EST Respiratory Rule-Out 05/05/2025 05/05/2025 025 6:05 PM EDT documented as of this encounter Care Teams Tool Machine Setup Operator Relationship Specialty Start Date End Date Francisca Wade MD [address] [place], [place] [phone] PCP - General Internal Medicine 07/18/24 documented as of this encounter
--- OUTSIDE RECORDS SUMMARY | 2025-05-20 17:46 | XMS_ITS | Encounter Summary ---
Author Organization [facility] Address [address] [place] [address] Care Team Providers Care Starch Cooker Name Role Phone Jun Arriola DO Unavailable [phone] Lorie Ozuna RN Unavailable [phone] Gianna Hodge APRN.ADMINISTRATIVE JUDGE Unavailable [phone] Francisca Wade MD Primary Care Provider [phone] Source Comments In the event this information is protected by the Federal Confidentiality of Alcohol and Drug AbusePatient Records regulations: The Federal rules restrict any use of the information to criminally investigate or prosecute any alcohol or drug abuse patient.[facility] Encounter Details Date Type Department Care Team (Late st Contact Info) Description 01/17/2025 Patient Msg Pain Management [address] [place] [address] Provider, David Virtual Visit Social History Tobacco Use Types Packs/Day Years [...] is lower risk 5 11/22/2024 Data from: https://www.neighborhoodatlas.medicine.[facility]/. Last address used for calculation [address] 11/22/2024 Sex and Gender Information Value [...] Office Visit [facility] [address] [place] [address] [place] [address] 6 Month Follow Up 08/26/2025 3:40 PM EST Visit (SP) Office Hematology/Oncology [address] [address] [place] [address] Alfonzo Crouch MD [address] [place] [address] 6 Month Follow Up documented as of this encounter Visit Diagnoses Not on filedocumented in this encounter Care Teams Starch Cooker Relationship Specialty Start Date End Date Francisca Wade MD [address] [place] [address] PCP - General Internal Medicine 12/16/24 Jun Arriola DO Physician Hematology 03/26/18 Lorie Ozuna RN [address] [facility] [address] [place] [address] Elastic Tape Inserter 03/26/18 Gianna Hodge APRN.CNP [address] [place] [address] Nurse Practitioner Hematology/Oncology 03/26/18 documented as of this encounter
--- OUTSIDE RECORDS SUMMARY | 2025-05-20 17:46 | XMS_ITS | Encounter Summary ---
Author Organization [facility] tem Address [id number] [address] [place] [address] Care Team Providers Care String Studies Director Name Role Phone Francisca Wade MD Primary Care Provider [phone] Encounter Details Date Type Department Care Team (Latest Contact Info) Description 05/20/2025 Travel Social History Tobacco Use Types Packs/Day Years Used Date Smoking Tobacco: Every Day Cigarettes 0.5 55.5 Started: 12/06/1989 Smokeless Tobacco: Never Alcohol Use Standard Drinks/Week Comments Not Currently 0 (1 standard drink = 0.6 oz pur e alcohol) [facility] Utilities Answer Date Recorded In the past 12 months has [employer] electric, gas, oil, or water company threatened [...] How often do you attend hoahaoism or latter day serv ices? Never 02/03/2024 Do you belong [...] Date Recorded Total Score 2 02/03/2024 [facility] Occupat [facility] - Occupational Stress Questionnaire Answer Date [...] Recorded Do you need help finding a steward health care system career center and/or a training program? No [...] EDT Office Visit [facility] [address] [place] [phone] Jeni Gillis PA [address] [place] [address] 05/26/2025 3:15 PM EDT Office Visit [facility] [address] [place] [phone] Sid Alves MD [address] [place] [address] documented as of this encounter Goals Goal Patient Goal Type Associated Problems Recent Progress Patient-Stated? Author to improve mobility and get home General Yes Citlalli Goode, RN Note: Evaluation of progress towards goal: Participating in therapy <enter goal here> General Yes Chika Ramsey LSW Note: Evaluation of progress towards goal: pt plans to return to [facility] to go home General Yes Connie Ramirez, RN Note: Evaluation of progress towards goal: participating in therapy documented as of this encounter Visit Diagnoses Not on filedocumented in this encounter Additional Health Concerns Assessment Noted Time PHQ-9 Depression Total Score: 2 02/03/20 24 3:58 PM EDT A Body Mass Index follow-up plan has been documented for the patient 07/18/2024 1:42 PM EST documented as of this encounter Care Teams String Studies Director Relationship Specialty Start Date End Date Francisca Wade MD [address] [place] [address] PCP - General Internal Medicine 07/18/24 documented as of this encounter
--- OUTSIDE RECORDS SUMMARY | 2025-05-20 17:47 | XMS_ITS | Encounter Summary ---
Author Organization [facility] Address [address] [place] [address] Care Team Providers Care Mangle Tender Cloth Name Role Phone Jun Arriola DO Unavailable [phone] Lorie Ozuna RN Unavailable [phone] Gianna Hodge APRN.FILM NUMBERER Unavailable [phone] Francisca Wade MD Primary Care Provider [phone] Source Comments In the event this information is protected by the Federal Confidentiality of Alcohol and Drug AbusePatient Records regulations: The Federal rules restrict any use of the information to criminally investigate or prosecute any alcohol or drug abuse patient.[facility] Encounter Details Date Type Department Care Team (Late st Contact Info) Description 01/20/2025 Patient Msg Neurology [address] [place] [address] Provider, David EMG Orders Social History Tobacco Use Types Packs/Day Years [...] is lower risk 5 11/22/2024 Data from: https://www.neighborhoodatlas.medicine.[facility]/. Last address used for calculation [address] [...] Description 08/26/2025 3:30 PM EST Office Visit [facility] [address] [place] [address] 6 Month Follow Up 08/26/2025 3:40 PM EST Visit (SP) Office Hematology/Oncology [address] [place] [address] Alfonzo Crouch MD [address] [place] [address] 6 Month Follow Up documented as of this encounter Visit Diagnoses Not on filedocumented in this encounter Care Teams Mangle Tender Cloth Relationship Specialty Start Date End Date Francisca Wade MD [address] [place] [address] PCP - General Internal Medicine 12/16/24 Jun Arriola DO Physician Hematology 03/26/18 Lorie Ozuna RN [address] [place] [address] [place] [address] Armature Winder 03/26/18 Gianna Hodge APRN.FILM NUMBERER [address] [place] [address] [place] [address] Nurse Practitioner Hematology/Oncology 03/26/18 documented as of this encounter
--- OUTSIDE RECORDS SUMMARY | 2025-05-20 17:47 | XMS_ITS | Encounter Summary ---
Author Organization [email or web address] Address [id number] [address] [place] [address] Care Team Providers Care Math Interventionist Name Role Phone Francisca Wade MD Primary Care Provider [phone] Encounter Details Date Type Department Care Team (Late st Contact Info) Description 07/09/2024 Orders Only [facility] [address] [place] [address] Connie Corbin RN Social History Tobacco Use Types Packs/Day Years Used Date Smoking Tobacco: Every Day Cigarettes 0.5 20 Smokeless Tobacco: Never Alcohol Use Standard Drinks/Week Comments Not Currently 0 (1 standard drink = 0.6 oz pur e alcohol) [facility] Utilities Answer Date Recorded In the past 12 months has [employer] electric, gas, oil, or water company threatened [...] week 02/03/2024 How often do you attend scientology or episcopalian serv ices? Never 02/03/2024 Do you belong to any clubs o r organizations such as scientology groups, unions, fraternal or athletic groups, or [...] Answer Date Recorded Total Score 2 02/03/2024 [facility] [place] of Occupat ional Health - Occupational Stress [...] Recorded Do you need help finding a [facility] career center and/or a training program? No 02/03/2024 Hunger Screening Answer Date Recorded Within the past 12 months we worried whether our food would run out before we got money to buy more. Never True 06/20/2024 Within the past 12 months th e food we bought just didn't last and we didn't have money to get more. Never True 06/20/2024 Purpose - Life Answer Date Recorded I have a purpose and direction in my life. Javon gly Agree 02/03/2024 Sex and Gender Information [...] Office Visit [facility] [address] [place] [address] [place] [id number] Jeni Gillis PA [address] [place] [id number] 05/26/2025 3:15 PM EDT Office Visit [facility] [address] [place] [address] [place] [address] Sid Alves MD [address] [place] [id number] documented as of this encounter Goals Goal Patient Goal Type Associated Problems Recent Progress Patient-Stated? Author to improve mobility and get home General Yes Citlalli Goode, MORE Note: Evaluation of progress towards goal: Participating in therapy <enter goal here> General Yes Chika Ramsey LSW Note: Evaluation of progress towards goal: pt plans to return to [facility] [place] [place] to go home General Yes Connie Ramirez, [...] documented as of this encounter Care Teams Math Interventionist Relationship Specialty Start Date End Date Francisca Wade MD [address] [place] [address] PCP - General Internal Medicine 07/18/24 documented as of this encounter
--- OUTSIDE RECORDS SUMMARY | 2025-05-20 17:58 | XMS_ITS | CCD ---
Author Organization [facility] Inform ion [facility] Care Team Providers Care Sales And Marketing Executive Name Role Phone DES FLORES Unavailable Unavailab le DES FLORES Unavailable Unavailab [facility], HEALTH SERVICES Admitting Unavailable [facility], [facility] SERVICES Attending Unavailable ANSELMO GARCÍA Consulting Unavailable [facility] Consulting Unavailable Jd Du Primary Care Provider Jeff Mandel Attending Provider Jeff Mandel Unavailable Bird Slade Unavailable Asa Moeller Unavailable LUIS Du Primary Care Provider MD Asa Moeller Attending Provider Yung Figueroa Unavailable Sugar Knight Unavailable Guillermo Thornton Unavailable LUIS Du Primary Care Provider MD Asa Moeller Attending Provider [phone] [place] Unavailable LUIS Du Primary Care Provider MD Guillermo Thornton Attending Provider MD Jayleen Guaman Attending Provider [phone] LUIS Du Primary Care Provider MD Guillermo Thornton Attending Provider LUIS Du Primary Care Provider MD Guillermo Thornton Attending Provider JOHN Morel Emergency Provider LUIS Du Attending Provider [phone] LUIS Du Primary Care Provider Eugenio ENGINEERING PROJECT MANAGER, [place] Unavailable Unallocated MD, [place] Provider Primary Care [facility] miko Aby WILSON, Marcell Unavailable DIONTE FREEMAN Attending Unavailable DIONTE FREEMAN Referring Unavailable CHEY ROMANO Attending Unavailable DIONTE FREEMAN Referring Unavailable DIONTE FREEMAN Attending Unavailable ERICK NAYLOR Attending Unavailable MARCELL BADILLO Referring Unavailable Mauro WILSON, [facility] Primary Care Provider Aby CADENA-CMarcell Attending Provider Mauro WILSON, [facility] Primary Care Provider [phone] Jd Du PA-C Primary Care Provider Eugenio PEDIATRIC ONCOLOGY NURSE-COMMUNITY RELATIONS ADVISOR, [place] Primary Care Provider Eugenio PEDIATRIC ONCOLOGY NURSE-COMMUNITY RELATIONS ADVISOR, [place] Primary Care Provider [phone] Jun Arriola DO Unavailable Sulma AGUERO, Lorie Unavailable Gianna Hodge APRN.CNP Unavailable Jd Du PA-C Primary Care Provider Roman WILSON, Winston Glass Attending Unavailable Roman WILSON, Winston Glass Attending Unavailable Mauro WILSON, [facility] Primary Care Provider [phone] Mauro WILSON, [facility] Primary Care Provider Guillermo Thornton MD Attending Provider [phone] Mauro WILSON, [facility] Primary Care Provider Jun Arriola DO Unavailable [phone] JD DU Referring Unavailable JD DU Vanessa Primary Care Unavailable MARCELL BADILLO Attending Unavailable EUGENIO, DIANE Referring Unavailable MAURO, FRANCISCA Primary Care Unavailable MAURO, FRANCISCA Referring Unavailable MAURO, FRANCISCA Primary Care Unavailable VIVEK GILLIS I Attending Unavailable MAURO, FRANCISCA Referring Unavailable MAURO, FRANCISCA Primary Care Unavailable MARC ALVES Attending Unavailable MAURO, FRANCISCA Referring Unavailable MAURO, FRANCISCA Primary Care Unavailable ANG FIGUEROA Referring Unavailable EUGENIO, DIANE Primary Care Unavailable ANG FIGUEROA Attending Unavailable EUGENIO, DIANE Referring Unavailable EUGENIO, DIANE Primary Care Unavailable CHRISTY FIGUEROASON Referring Unavailable MAURO, FRANCISCA Primary Care Unavailable ANG FIGUEROA Attending Unavailable EUGENIO, DIANE Referring Unavailable MAURO, FRANCISCA Primary Care Unavailable ALISTAIR MCNALLY Referring Unavailable MAURO, FRANCISCA Primary Care Unavailable ANCA RINALDIE G Admitting Unavailable ABRAHAN RINALDI G Attending Unavailable GRUPOENGER, ABRAHAN G Referring Unavailable MAURO, FRANCISCA Primary Care Unavailable VENNEPUREDSCAR, ZAC Attending Unavailable BERENGER, ABRAHAN G Referring Unavailable JD DU Primary Care Unavailable BERENGERABRAHAN G Attending Unavailable DIGENNARO, MARTHA Referring Unavailable JD DU Primary Care Unavailable JD DU Primary Care Unavailable MEAGHAN, NOHEMY Attending Unavailable MEAGHAN, NOHEMY Referring Unavailable MAURO, FRANCISCA Primary Care Unavailable MEAGHAN NOHEMY Attending Unavailable ALISTAIR MCNALLY Referring Unavailable MAURO, FRANCISCA Primary Care Unavailable WENDIEPRAMSEY PATTONH Attending Unavailable MAURO, FRANCISCA Primary Care Unavailable MAURO, FRANCISCA Primary Care Unavailable ALISTAIR MCNALLY Attending Unavailable MAURO, FRANCISCA Primary Care Unavailable BERENGER, ABRAHAN G Referring Unavailable JD DU Primary Care Unavailable EUGENIO, DIANE Primary Care [...] Care Unavailable MAURO, FRANCISCA Primary Care Unavailable Mauro, Francisca Primary Care Unavailable Guillermo Thornton Attending Unavailable Guillermo Thornton Admitting Unavailable Marcell Badillo Attending Unavailable Marcell Badillo Admitting Unavailable Mauro, Francisca Primary Care Unavailable Mauro, Francisca Primary Care Unavailable Guillermo Thornton Attending Unavailable Guillermo Thornton Admitting Unavailable ALISTAIR MCNALLY Attending Unavailable MAURO, FRANCISCA Primary Care Unavailable ALISTAIR MCNALLY Attending Unavailable MAURO, FRANCISCA Primary Care Unavailable JESSY MTZ Attending Unavailable MAURO, FRANCISCA Primary Care Unavailable Unavailable Unavailable Unavailable Allergies Allergy Classification Reported Allergen(s) Allergy Type Date of Onset Reaction(s) Facility (20 sources) Insulin Glargine; Translations: [INSULIN GLARGINE] Drug Allergy 03-21-2023 GI intolerance, Nausea And Vomiting, GI Disturbance, GI Upset [facility] (19 sources) Clindamycin; Translations: [CLINDAMYCIN] Drug Allergy 11-28-2024 Other: See Comments, Other (See Comments) [facility] Medications Current Medications Medication Drug Class(es) Dates Sig (Normalized) Sig (Original) acetaminophen 500 mg oral tablet (16 sources) Start: 02-12-2024 End: 02-22-2024 take 1 tablet by mouth every four hours as needed for pain acetaminophen (TYLENOL EXTRA STRENGTH) 500 mg tablet Indications: Closed fracture of right hip, initial encounter ([facility]) Take 1 tablet (500 mg total) by [...] Start: 03-21-2023 take 1 tablet by afua th once daily as needed for muscle spasms Cyclobenzaprine 10 mg tablet Active 10 MG PO Daily as needed for Muscle Spasm March 21, 2023 12:00am Start: 06-09-2020 End: 01-22-2024 take 10 mg by mouth twice daily as needed for muscle spasms 10 mg, oral, 2 times daily PRN, muscle spasms, Starting on Mon01/17/24 at 1714 take 1 tablet by afua th three times daily cyclobenzaprine (FLEXERIL) 10 mg [...] Active docusate sodium 50 mg / sennosides, nursing home 8.6 mg oral tablet (10 sources) Start: 01-29-2024 take 2 tablets by mouth once daily 2 tablet, oral, Nightly, First dose on Mon01/29/24 at 2200 Start: 01-22-2024 take 2 tablets by [facility] in the morning sennosides-docusate sodium (SENOKOT-S) 8.6-50 [...] D2 Compound Start: 01-25-2024 End: 02-09-2024 take 57355 [IU] by mouth every week 50,000 Units, oral, Weekly, First dose on Mon01/29/24 at 1200 Start: 01-18-2024 End: 01-22-2024 take 15024 [IU] by mouth every week 50,000 Units, [...] Closed fracture of right hip, initial encounter ([facility]) Take 1 tablet (800 mg total) by [...] mcg, oral, Miah y, First dose on 01/29/24 at 1345 Completed/Discontinued Medications Medication Drug Class(es) [...] Discontinued Start: 01-29-2024 take 2000 [IU] by [facility] once daily 2,000 Units, oral, Daily, First dose on 01/29/24 at 1200 Start: 01-23-2024 End: 02-22-2024 take [...] Start: 11-02-2023 take 2 tablets by mo uth once daily Colestipol Active 2 GM PO Daily 60 30 November 014 2:12pm take 2 tablets orally once a [...] Sep, Active take 1 tablet by afua th twice daily colestipol (COLESTID) 1 gram tablet [...] 0800 Start: 02-22-2018 take 1 tablet by [facility] once daily Fenofibrate 160 mg Tablet Active [...] Closed fracture of right hip, initial encounter ([facility]) Place 1 patch on the skin in [...] Closed fracture of right hip, initial encounter ([facility]) Take 1 tablet (5 mg total) by [...] Closed fracture of right hip, initial encounter ([facility]) Take 1 tablet (5 mg total) by mouth every 8 (eight) hours as needed for pain. Take 1 tablet (5mg) oxycodone every 5-6 hours PRN pain Max Daily Amount: 15 mg 21 tablet 03/11/2024 03/18/2024 Discontinued (Reorder) Start: 02-25-2024 End: 02-26-2024 oxyCODONE (ROXICODONE) 5 mg immediate release tablet Indications: Closed fracture of right hip, initial encounter ([facility]) Take 1 tablet (5mg) oxycodone every 5-6 hours PRN pain 7 tablet 02/26/2024 Active Start: 02-25-2024 oxyCODONE (ROSALINDA ICODONE) 5 mg immediate release tablet Indications: Closed fracture of right hip, initial encounter ([facility]) Take 1 tablet (5mg) oxycodone every 5-6 hours PRN pain 32 tablet 02/25/2024 Active Start: 02-09-2024 End: 02-26-2024 take 1 tablet by mouth every six hours as needed for pain oxyCODONE (ROXICODONE) 5 mg immediate release tablet Indications: Closed fracture of right hip, initial encounter ([facility]) Take 1 tablet (5 mg total) by [...] Peptic Ulcer Disease (PUD) polyethylene glycol 3350 49538 mg powder for oral solution (3 sources) [...] Translations: [Mixed hyperlipidemia] Onset: 4 02-03-2024 Chronic Esophageal disorders (20 sources) Gastroesophageal reflux disease; Translations: [Gastro-esophageal reflux disease without esophagitis] Onset: 4 Chronic Essential hypertension (20 sources) Essential hypertension; Translations: [Essential (primary) hypertension] Onset: 4 02-03-2024 Chronic Hepatitis (20 sources) Chronic hepatitis C; Translations: [Chronic viral hepatitis C] Chronic Hepatitis (20 sources) Viral hepatitis C; Translations: [Unspecified viral hepatitis C without hepatic coma] Episodic Hyperplasia of prostate (20 sources) Benign prostatic hyperplasia; Translations: [Benign prostatic hyperplasia without lower urinary tract symptoms] Onset: 4 02-03-2024 Chronic Immunizations and screening [...] shoulder] 12-01-2023 Chronic Other connective tissue disease (17 sources) History of total replacement of right hip joint; Translations: [Presence of right artificial hip joint] Onset: 5 11-25-2024 Chronic Other connective tissue disease (3 sources) Presence of right artificial hip joint; Translations: [Presence of right artificial hip joint] Onset: 5 Chronic Other connective tissue disease [...] Onset: 4 06-05-2024 Chronic Other gastrointestinal disorders (8 sources) Irritable bowel syndrome with diarrhea; Translations: [...] [Polyneuropathy, unspecified] Chronic Other nervous system disorders (20 sources) [...] Hypomagnesemia; Translations: [Hypomagnesemia] Onset: 4 02-03-2024 Chronic Residual codes; unclassified (16 sources) Family [...] postprocedural states] 01-13-2025 Episodic Residual codes; unclassified (5 sources) Other specified postprocedural states; Translations: [Other [...] Onset: 4 02-03-2024 Chronic Unclassified (1 source) Difficulty Urinating Onset: 5 Unclassified (1 source) Low back pain, unspecified; Translations: [Low back pain, unspecified] Onset: 4 Unclassified (1 source) Consult Onset: 4 Unclassified (1 source) Establish Care Onset: 4 Unclassified (1 source) Hip Pain, Leg Pain Onset: 4 Past or Other Problems Problem Classification Problem Date Documented Date Episodic/Chronic Abdominal pain (20 sources) Abdominal pain; Translations: [Unspecified abdominal pain] Onset: 08-25-2021 Resolved: 08-25-2021 Episodic Comment on above: Problem List clean-u p per request of Phys. EHR Cmte Complications of surgical procedures or medical care (20 sources) Periprosthetic fracture; Translations: [Periprosthetic fracture around other internal prosthetic joint, initial encounter] Onset: 01-29-2024 01-30-2024 Episodic Deficiency and other anemia (20 sources) Iron deficiency anemia; Translations: [Iron deficiency anemia, unspecified] Onset: 02-03-2024 02-03-2024 Episodic Fracture of neck of femur (hip) (20 sources) Closed intertrochanteric fracture; Translations: [Displaced intertrochanteric fracture of right femur, initial encounter for closed fracture] Onset: 01-17-2024 01-23-2024 Episodic Genitourinary symptoms and ill-defined conditions (9 sources) Difficulty passing urine; Translations: [Other difficulties with micturition] Onset: 12-04-2024 12-04-2024 Episodic Mood disorders (20 sources) Mood disorders Onset: 01-22-2024 Resolved: 02-03-2024 02-03-2024 Other aftercare (1 source) 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; Translations: [USP (current) use of insulin] Onset: 02-03-2024 Episodic [...] Onset: 07-18-2024 Episodic Other non-traumatic joint disorders (2 sources) Pain in left shoulder; Translations: [Pain in joint, shoulder region] Onset: 01-03-2024 01-03-2024 Episodic Other non-traumatic joint disorders (4 sources) Pain in right knee; Translations: [Pain in joint, lower leg] Onset: 06-03-2024 06-17-2024 Episodic Other non-traumatic joint disorders (1 source) Knee pain Onset: 06-07-2024 Episodic Other non-traumatic joint disorders (1 source) Pain in right hip; Translations: [Pain in right hip] Onset: 05-07-2024 Episodic Other screening for suspected conditions (not mental disorders or infectious disease) (3 sources) High carcinoembryonic antigen level; Translations: [Elevated carcinoembryonic antigen [CEA]] Onset: 12-30-2024 02-20-2025 Episodic Other skin disorders (1 source) Localized [...] unspecified; Translations: [Pain, unspecified] Onset: 07-02-2024 Episodic Residual codes; unclassified (1 source) Localized [...] Test Name Value Interpretation Reference Range Facility [facility] 05-02-2025 [facility] Telephone ([facility]) -------- RUTH SMITH ([id number]) 1970 M Date Time Provider Department 05/02/25 ALISTAIR MCNALLY [facility] During your visit today, we recorded the following information about you: Chema De Leon, RN 05/02/2025 2:21 PM Signed Ava called requesting results of his EMG. Result are under scanned documents but shared with Ava that this RN is unable to interpret/share them and per 04/01/25 office visit notes, Dr Mcnally stated he would follow up with him after the EMG to discuss results and determine next steps. Offered virtual visit since he lives near [place], which he agreed to. Transferred to material scheduler. Allergies As of Date: 05/02/2025 Noted Allergy Reaction CLINDAMYCIN 11/28/2024 14 - Other: See Comments INSULIN GLARGINE 12/01/2023 8 - GI Upset Comments: basaglar Date Reviewed: 04/01/2025 Reviewed by: Alistair Mcnally MD - Fully Assessed Reason for Visit: Patient Question [1479] Cmt: EMG results Prescriptions as of 05/02/2025 - DULoxetine DR (CYMBALTA) 30 mg capsule TAKE 2 CAPSULES BY MOUTH DAILY - hyoscyamine (LEVSIN) 0.125 mg tablet Take [...] once daily. 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 Mcnally and LUIS Li Jeanne M RN 03/25/2025 11:21 AM Signed Patient notified [...] Encounter Status:Closed by CHARLES DUDLEY on 03/24/25 [facility] PROSTATIC SPECIFIC ANTIGEN, DIAGNOSTICon 03-20-2025 PROSTATIC SPEC ANT 0.44 ng/mL Normal 0.00-4.00 [facility] Comment on above: Result Comment: The method used for this test is K[employer] [place] DXI chemiluminescent immunoassay. Values obtained by different assay methods cannot be used interchangeably. Performed By: #### P SA ####[facility] ([facility])[address] [address] [facility]25 [facility] Office Visit ([facility]) -------- RUTH SMITH ([id number]) 1970 M Date Time Provider Department 02/21/25 2:15 PM ALISTAIR MCNALLY [facility] During your visit today, we recorded [...] will send the order to [facility], as requested. - I increased your duloxetine [...] Alistair Mcnally MD 02/21/2025 4:10 PM Signed [facility] Pain Management Department Follow-Up Evaluation Chief Complaint: [...] is worse. Pain score today: 8/10 ========= Ava Smith is a 54-year-old male with a history of chronic lower back pain and neuropathy, presenting for worsening pain and neuropathy. Ava reports persistent lower back pain radiating to the buttocks, right leg, calf, and occasionally the ankle. The pain has intensified, now described as an electric sensation shooting up the core with each step. He also experiences pain in the hip, knee, and calf, with severe episodes extending to the ankle. Ava has a history of neuropathy in the lower extremities for over 7-8 years, initially starting in the outer toes and progressively affecting all toes and feet. He reports numbness in the legs when sitting, particularly on the commode, requiring 10-15 minutes to regain sensation. Ava underwent two surgeries last year, including a [...] a facility closer to his residence in [place]. Ava is currently on duloxetine 30 mg daily [...] Gabapentin Tra (more content not included)... Normal [facility] CBC W Auto Differential pane l (Bld)on 02-20-2025 Basophils (Bld) [#/Vol] 0.06 10*3/uL [facility] Basophils/100 WBC (Bld) 0.6 % [facility] Differential cell count method Nom (Bld) Auto [facility] Eosinophils (Bld) [#/Vol] 0.03 10*3/uL [facility] Eosinophils/100 WBC (Bld) 0.3 % [facility] Erythrocyte distribution width (RBC) [Ratio] 14.7 % 11.5 - 15.0 % [facility] Hematocrit (Bld) [Volume fraction] 48 % 39.0 - 51.0 % [facility] Hemoglobin (Bld) [Mass/Vol] 15.7 g/dL 13.0 - 17.0 g/dL [facility] Immature granulocytes (Bld) [#/Vol] 0.03 10*3/uL [facility] Immature granulocytes/100 WBC (Bld) 0.3 % [facility] Lymphocytes (Bld) [#/Vol] 2.45 10*3/uL [facility] Lymphocytes/100 WBC (Bld) 25.6 % [facility] MCH (RBC) [Entitic mass] 28 pg 26.0 - 34.0 pg [facility] MCHC (RBC) [Mass/Vol] 32.7 g/dL 30.5 - 36.0 g/dL [facility] MCV (RBC) [Entitic vol] 85.7 fL 80.0 - 100.0 fL [facility] Monocytes (Bld) [#/Vol] 0.72 10*3/uL [facility] Monocytes/100 WBC (Bld) 7.5 % [facility] Neutrophils (Bld) [#/Vol] 6.29 10*3/uL [facility] Neutrophils/100 WBC (Bld) 65.7 % [facility] Nucleated RBC (Bld) [#/Vol] [facility] Nucleated RBC/100 WBC (Bld) [Ratio] 0 % /100 WBC [facility] Platelet mean volume (Bld) [Entitic vol] 12.3 fL 9.0 - 12.7 fL [facility] Platelets (Bld) [#/Vol] 164 10*3/uL [facility] RBC (Bld) [#/Vol] 5.6 10*6/uL 4.20 - 6.00 m/uL [facility] WBC (Bld) [#/Vol] 9.58 10*3/uL [facility] Basophils (Bld) [#/Vol] 0.06 10*3/uL Normal <0.11 [facility] Comment on above: Order Comment: Speci men Type: BLOOD SPECIMENOrdering Facility: [facility] Address: [address] [place] [address] Performed By: #### 5 7021-8 ####[facility] [id number] [place] [address] Basophils/100 WBC (Bld) 0.6 % Normal [facility] Comment on above: Order Comment: Speci men Type: BLOOD SPECIMENOrdering Facility: [facility] Address: [address] [place] [address] Performed By: #### 5 7021-8 ####[facility] [id number] [place] [address] Differential cell count method Nom (Bld) Auto Normal [facility] Comment on above: Order Comment: Speci men Type: BLOOD SPECIMENOrdering Facility: [facility] Address: [address] [place] [address] Performed By: #### 5 7021-8 ####[facility] [id number] [place] [address] Eosinophils (Bld) [#/Vol] 0.03 10*3/uL Normal <0.46 [facility] Comment on above: Order Comment: Speci men Type: BLOOD SPECIMENOrdering Facility: [facility] Address: [address] [place] [address] Performed By: #### 5 7021-8 ####[facility] [id number] [place] [address] Eosinophils/100 WBC (Bld) 0.3 % Normal [facility] Comment on above: Order Comment: Speci men Type: BLOOD SPECIMENOrdering Facility: [facility] Address: [address] [place] [address] Performed By: #### 5 7021-8 ####[facility] [id number] [place] [address] Erythrocyte distribution width (RBC) [Ratio] 14.7 % Normal 11.5-15.0 [facility] Comment on above: Order Comment: Speci men Type: BLOOD SPECIMENOrdering Facility: [facility] Address: [address] [place] [address] Performed By: #### 5 7021-8 ####[facility] [id number] [place] [address] Hematocrit (Bld) [Volume fraction] 48.0 % Normal 39.0-51.0 [facility] Comment on above: Order Comment: Speci men Type: BLOOD SPECIMENOrdering Facility: [facility] Address: [address] [place] [address] Performed By: #### 5 7021-8 ####[facility] [id number] [place] [address] Hemoglobin (Bld) [Mass/Vol] 15.7 g/dL Normal 13.0-17.0 [facility] Comment on above: Order Comment: Speci men Type: BLOOD SPECIMENOrdering Facility: [facility] Address: [address] [place] [address] Performed By: #### 5 7021-8 ####[facility] [id number] [place] [address] Immature granulocytes (Bld) [#/Vol] 0.03 10*3/uL Normal <0.10 [facility] Comment on above: Order Comment: Speci men Type: BLOOD SPECIMENOrdering Facility: [facility] Address: [address] [place] [address] Performed By: #### 5 7021-8 ####[facility] [id number] [place] [address] Immature granulocytes/100 WBC (Bld) 0.3 % Normal [facility] Comment on above: Order Comment: Speci men Type: BLOOD SPECIMENOrdering Facility: [facility] Address: [address] [place] [address] Performed By: #### 5 7021-8 ####[facility]CL[facility] [id number] [place] [address] Lymphocytes (Bld) [#/Vol] 2.45 10*3/uL Normal 1.00-4.00 [facility] Comment on above: Order Comment: Speci men Type: BLOOD SPECIMENOrdering Facility: [facility] Address: [address] [place] [address] Performed By: #### 5 7021-8 ####[facility] LABIA [id number] [place] [address] Lymphocytes/100 WBC (Bld) 25.6 % Normal [facility] Comment on above: Order Comment: Speci men Type: BLOOD SPECIMENOrdering Facility: [facility] Address: [address] [place] [address] Performed By: #### 5 7021-8 ####[facility]CL[facility] [id number] [place] [address] MCH (RBC) [Entitic mass] 28.0 pg Normal 26.0-34.0 [facility] Comment on above: Order Comment: Speci men Type: BLOOD SPECIMENOrdering Facility: [facility] Address: [address] [place] [address] Performed By: #### 5 7021-8 ####[facility] LABIA [id number] [place] [address] MCHC (RBC) [Mass/Vol] 32.7 g/dL Normal 30.5-36.0 [facility] Comment on above: Order Comment: Speci men Type: BLOOD SPECIMENOrdering Facility: [facility] Address: [address] [place] [address] Performed By: #### 5 7021-8 ####[facility] LABCLIA [id number] [place] [address] MCV (RBC) [Entitic vol] 85.7 fL Normal 80.0-100.0 [facility] Comment on above: Order Comment: Speci men Type: BLOOD SPECIMENOrdering Facility: [facility] Address: [address] [place] [address] Performed By: #### 5 7021-8 ####[facility] LABCLIA [id number] [place] [address] Monocytes (Bld) [#/Vol] 0.72 10*3/uL Normal <0.87 [facility] Comment on above: Order Comment: Speci men Type: BLOOD SPECIMENOrdering Facility: [facility] Address: [address] [place] [address] Performed By: #### 5 7021-8 ####[facility] LABCLIA [id number] [place] [address] Monocytes/100 WBC (Bld) 7.5 % Normal [facility] Comment on above: Order Comment: Speci men Type: BLOOD SPECIMENOrdering Facility: [facility] Address: [address] [place] [address] Performed By: #### 5 7021-8 ####[facility] LABCLIA [id number] [place] [address] Neutrophils (Bld) [#/Vol] 6.29 10*3/uL Normal 1.45-7.50 [facility] Comment on above: Order Comment: Speci men Type: BLOOD SPECIMENOrdering Facility: [facility] Address: [address] [place] [address] Performed By: #### 5 7021-8 ####[facility] LABCLIA [id number] [place] [address] Neutrophils/100 WBC (Bld) 65.7 % Normal [facility] Comment on above: Order Comment: Speci men Type: BLOOD SPECIMENOrdering Facility: [facility] Address: [address] [place] [address] Performed By: #### 5 7021-8 ####[facility] LABCLIA [id number] [place] [address] Nucleated RBC (Bld) [#/Vol] 10*3/uL Normal <0.01 [facility] Comment on above: Order Comment: Speci men Type: BLOOD SPECIMENOrdering Facility: [facility] Address: [address] [place] [address] Performed By: #### 5 7021-8 ####[facility] LABCLIA [id number] [place] [address] Nucleated RBC/100 WBC (Bld) [Ratio] 0.0 /100 WBC Normal [facility] Comment on above: Order Comment: Speci men Type: BLOOD SPECIMENOrdering Facility: [facility] Address: [address] [place] [address] Performed By: #### 5 7021-8 ####[facility] LABCLIA [id number] [place] [address] Platelet mean volume (Bld) [Entitic vol] 12.3 fL Normal 9.0-12.7 [facility] Comment on above: Order Comment: Speci men Type: BLOOD SPECIMENOrdering Facility: [facility] Address: [address] [place] [address] Performed By: #### 5 7021-8 ####[facility] LABCLIA [id number] [place] [address] Platelets (Bld) [#/Vol] 164 10*3/uL Normal 150-400 [facility] Comment on above: Order Comment: Speci men Type: BLOOD SPECIMENOrdering Facility: [facility] Address: [address] [place] [address] Performed By: #### 5 7021-8 ####[facility] LABCLIA [id number] [place] [address] RBC (Bld) [#/Vol] 5.60 10*6/uL Normal 4.20-6.00 [facility] Comment on above: Order Comment: Speci men Type: BLOOD SPECIMENOrdering Facility: [facility] Address: [address] [place] [address] Performed By: #### 5 7021-8 ####[facility] LABCLIA [id number] [place] [address] WBC (Bld) [#/Vol] 9.58 10*3/uL Normal 3.70-11.00 [facility] Comment on above: Order Comment: Speci men Type: BLOOD SPECIMENOrdering Facility: [facility] Address: [address] [place] [address] Performed By: #### 5 7021-8 ####[facility] LABCLIA [id number] [place] [address] [facility] Carcinoembryonic Ag [Mass/Vol] 3.4 ng/mL High <=2.9 [facility] Comment on above: Order Comment: Speci men Type: BLOOD SPECIMENOrdering Facility: [facility] Address: [address] [place] [address] Result Comment: Carc inoembryonic antigen test is used as an aid in monitoring response to treatment or recurrence in patients with established colorectal, breast, lung, prostatic, pancreatic, and ovarian carcinomas. Clinical correlation is required. The Carcinoembryonic antigen test was performed using the [employer] [place] [employer] DXI paramagnetic particle chemiluminescent immunoassay method. Results obtained with different assay methods or kits cannot be used interchangeably. Performed By: #### 2 039-6 ####[facility] LABCLIA [id number] [address] OF [facility] CNOVSPon 02-20-2025 CNOVSP Visit (SP) Office ([place]) -------- RUTH SMITH ([id number]) 1970 M Date Time Provider Department 02/20/25 2:20 PM ZAC CROUCH During your visit today, we recorded the following information about you: Temperature Pulse Respiration Blood pressure 97.6 degrees 91/minute 16/minute 120/82 Weight Height 108.2 kg 1.854 m Zac Crouch MD 02/20/2025 4:15 PM Signed PATIENT NAME: Ruth Smith CLINIC NO.: [id number] ATTENDING PHYSICIAN: Zac Crouch MD DATE OF SERVICE: November 28, [address] Abrahan Rinaldi [address] [facility] [address] thank you for referring Ruth Smith for [...] Wt Reading (more content not included)... Normal [facility] Comprehensive metabolic 2000 panelOrdered By: Prashant Mishra on 02-20-2025 Albumin [Mass/Vol] 4.9 g/dL 3.9 - 4.9 g/dL [facility] ALP [Catalytic activity/Vol] 69 U/L 38 - 113 U/L [facility] ALT [Catalytic activity/Vol] 8 U/L Low 10 - 54 U/L [facility] Anion gap [Moles/Vol] 12 mmol/L 8 - 15 mmol/L [facility] AST [Catalytic activity/Vol] 16 U/L 14 - 40 U/L [facility] Bilirubin [Mass/Vol] 0.4 mg/dL 0.2 - 1 .3 mg/dL [facility] Calcium [Mass/Vol] 10.4 mg/dL High 8.5 - 10. 2 mg/dL [facility] Chloride [Moles/Vol] 100 mmol/L 98 - 10 7 mmol/L [facility] CO2 [Moles/Vol] 26 mmol/L 22 - 30 mmol/L [facility] Creatinine [Mass/Vol] 0.97 mg/dL 0.73 - 1.22 mg/dL [facility] GFR/1.73 sq M.predicted among non-blacks MDRD (S/P/Bld) [Vol rate/Area] 92 mL/min/{1.73_m2} - PINF [facility] Comment on above: Estimated Glomerular Filtration Rate [...] 145 mg/dL High 74 - 99 mg/dL [facility] Comment on above: The [place] Diabete s Association (ADA) provides guidance for [...] Standards of Medical Care in Diabetes 2016, [place] Diabetes Association. Diabetes Care. 2016.39(Suppl 1). Interpretation and review of laboratory results Abnormal [facility] Potassium [Moles/Vol] 4.1 mmol/L 3.7 - 5.1 mmol/L [facility] Protein [Mass/Vol] 8 g/dL 6.3 - 8.0 g/dL [facility] Sodium [Moles/Vol] 138 mmol/L 136 - 144 mmol/L [facility] Urea nitrogen [Mass/Vol] 14 mg/dL 9 - 24 mg/dL [facility] Comprehensive metabolic 2000 panelon 02-20-2025 Albumin [Mass/Vol] 4.9 g/dL Normal 3.9-4.9 [facility] Comment on above: Order Comment: Speci men Type: BLOOD SPECIMENOrdering Facility: [facility] Address: [facility] [place] [address] Performed By: #### 2 4323-8 ####[facility] LABCLIA [id number] [place] [address] ALP [Catalytic activity/Vol] 69 U/L Normal 38-113 [facility] Comment on above: Order Comment: Speci men Type: BLOOD SPECIMENOrdering Facility: [facility] Address: [address] [place] [address] Performed By: #### 2 4323-8 ####[facility] LABCLIA [id number] [place] [address] ALT [Catalytic activity/Vol] 8 U/L Low 10-54 [facility] Comment on above: Order Comment: Speci men Type: BLOOD SPECIMENOrdering Facility: [facility] Address: [address] [place] [address] Performed By: #### 2 4323-8 ####[facility] LABCLIA [id number] [place] [address] Anion gap [Moles/Vol] 12 mmol/L Normal 8-15 [facility] Comment on above: Order Comment: Speci men Type: BLOOD SPECIMENOrdering Facility: [facility] Address: [address] [place] [address] Performed By: #### 2 4323-8 ####[facility] LABCLIA [id number] [place] [address] AST [Catalytic activity/Vol] 16 U/L Normal 14-40 [facility] Comment on above: Order Comment: Speci men Type: BLOOD SPECIMENOrdering Facility: [facility] Address: [address] [place] [address] Performed By: #### 2 4323-8 ####[facility] LABCLIA [id number] [place] [address] Bilirubin [Mass/Vol] 0.4 mg/dL Normal 0.2-1.3 [facility] Comment on above: Order Comment: Speci men Type: BLOOD SPECIMENOrdering Facility: [facility] Address: [address] [place] [address] Performed By: #### 2 4323-8 ####[facility] LABCLIA [id number] [place] [address] Calcium [Mass/Vol] 10.4 mg/dL High 8.5-10.2 [facility] Comment on above: Order Comment: Speci men Type: BLOOD SPECIMENOrdering Facility: [facility] Address: [address] [place] [address] Performed By: #### 2 4323-8 ####[facility] LABCLIA [id number] [place] [address] Chloride [Moles/Vol] 100 mmol/L Normal 98-107 [facility] Comment on above: Order Comment: Speci men Type: BLOOD SPECIMENOrdering Facility: [facility] Address: [address] [place] [address] Performed By: #### 2 4323-8 ####[facility] LABCLIA [id number] [place] [address] CO2 [Moles/Vol] 26 mmol/L Normal 22-30 [facility] Comment on above: Order Comment: Speci men Type: BLOOD SPECIMENOrdering Facility: [facility] Address: [address] [place] [address] Performed By: #### 2 4323-8 ####[facility] LABCLIA [id number] [place] [address] Creatinine [Mass/Vol] 0.97 mg/dL Normal 0.73-1.22 [facility] Comment on above: Order Comment: Speci men Type: BLOOD SPECIMENOrdering Facility: [facility] Address: [address] [place] [address] Performed By: #### 2 4323-8 ####[facility] LABCLIA [id number] [place] [address] Creatinine and Glomerular filtration rate.predicted panel (S/P/Bld) 92 mL/min/1.73m??? Normal >=60 [facility] Comment on above: Order Comment: Spectrevor rosenthal Type: BLOOD SPECIMENOrdering Facility: [facility] Address: [address] [place] [address] Result Comment: Lou mated Glomerular Filtration Rate [...] actual GFR. Performed By: #### 2 4323-8 ####[facility] LABCLIA [id number] [place] [address] Glucose [Mass/Vol] 145 mg/dL High 74-99 [facility] Comment on above: Order Comment: Ricky rosenthal Type: BLOOD SPECIMENOrdering Facility: [facility] Address: [address] [place] [address] Result Comment: The [place] Diabetes Association (ADA) provides guidance for cutoff [...] Standards of Medical Care in Diabetes 2016, [place] Diabetes Association. Diabetes Care. 2016.39(Suppl 1). Performed By: #### 2 4323-8 ####[facility] LABCLIA [id number] [place] [address] Potassium [Moles/Vol] 4.1 mmol/L Normal 3.7-5.1 [facility] Comment on above: Order Comment: Ricky rosenthal Type: BLOOD SPECIMENOrdering Facility: [facility] Address: [address] [place] [address] Performed By: #### 2 4323-8 ####[facility] LABCLIA [id number] [place] [address] Protein [Mass/Vol] 8.0 g/dL Normal 6.3-8.0 [facility] Comment on above: Order Comment: Speci men Type: BLOOD SPECIMENOrdering Facility: [facility] Address: [address] [place] [address] Performed By: #### 2 4323-8 ####[facility] LABCLIA [id number] [place] [address] Sodium [Moles/Vol] 138 mmol/L Normal 136-144 [facility] Comment on above: Order Comment: Speci men Type: BLOOD SPECIMENOrdering Facility: [facility] Address: [address] [place] [address] Performed By: #### 2 4323-8 ####[facility] LABCLIA [id number] [place] [address] Urea nitrogen [Mass/Vol] 14 mg/dL Normal 9-24 [facility] Comment on above: Order Comment: Speci men Type: BLOOD SPECIMENOrdering Facility: [facility] Address: [address] [place] [address] Performed By: #### 2 4323-8 ####[facility] LABCLIA [id number] [place] [address] ECG 12 leadon 01-16-2025 TRACEMASTERVUE [facility] URINALYSISon 01-15-2025 Bilirubin Ql (U) Negative Normal Negative [facility] Comment on above: Order Comment: Clean catch, midstreamif symptomatic. Urine culture if positive for bacteria, blood, protein, white blood count over 5, nitrates or leukocyte esterase positive Performed By: #### U A ####[facility] ([facility])[address] [address] [address] VIR BLOOD/HGB Negative Normal Negative [facility] Comment on above: Order Comment: Clean catch, midstreamif symptomatic. Urine culture if positive for bacteria, blood, protein, white blood count over 5, nitrates or leukocyte esterase positive Performed By: #### U A ####[facility] ([facility])[address], [place] [address] VIR Color (U) Yellow Normal Yellow, Colorless [facility] Comment on above: Order Comment: Clean catch, midstreamif symptomatic. Urine culture if positive for bacteria, blood, protein, white blood count over 5, nitrates or leukocyte esterase positive Performed By: #### U A ####[facility] ([facility])[address] [place] [address] VIR Glucose Ql (U) Negative Normal Negative [facility] Comment on above: Order Comment: Clean catch, midstreamif symptomatic. Urine culture if positive for bacteria, blood, protein, white blood count over 5, nitrates or leukocyte esterase positive Performed By: #### U A ####[facility] ([facility])[address] [place] [address] VIR Ketones Ql (U) Negative Normal Negative [facility] Comment on above: Order Comment: Clean catch, midstreamif symptomatic. Urine culture if positive for bacteria, blood, protein, white blood count over 5, nitrates or leukocyte esterase positive Performed By: #### U A ####[facility] ([facility])[address] [facility] [address], [place] [address] VIR Leukocyte esterase Test strip Ql (U) Negative Normal Negative [facility] Comment on above: Order Comment: Clean catch, midstreamif symptomatic. Urine culture if positive for bacteria, blood, protein, white blood count over 5, nitrates or leukocyte esterase positive Performed By: #### U A ####[facility] ([facility])[address] [facility], [place] [address] VIR Nitrite Ql (U) Negative Normal Negative [facility] Comment on above: Order Comment: Clean catch, midstreamif symptomatic. Urine culture if positive for bacteria, blood, protein, white blood count over 5, nitrates or leukocyte esterase positive Performed By: #### U A ####[facility] ([facility])[address] [facility] [address], [place] [address] VIR PH,URINE 7.0 Normal 5.0-8.5 [facility] Comment on above: Order Comment: Clean catch, midstreamif symptomatic. Urine culture if positive for bacteria, blood, protein, white blood count over 5, nitrates or leukocyte esterase positive Performed By: #### U A ####[facility] ([facility])[address] [facility] [address], [place] [address] VIR Protein Ql (U) Negative Normal Negative [facility] Comment on above: Order Comment: Clean catch, midstreamif symptomatic. Urine culture if positive for bacteria, blood, protein, white blood count over 5, nitrates or leukocyte esterase positive Performed By: #### U A ####[facility] ([facility])[address] [address] VIR Specific gravity (U) [Rel density] 1.020 Normal 1.003-1.03 5 [facility] Comment on above: Order Comment: Clean catch, midstreamif symptomatic. Urine culture if positive for bacteria, blood, protein, white blood count over 5, nitrates or leukocyte esterase positive Performed By: #### U A ####[facility] ([facility])[address] [address] VIR TURBIDITY Clear Normal Clear [facility] Comment on above: Order Comment: Clean catch, midstreamif symptomatic. Urine culture if positive for bacteria, blood, protein, white blood count over 5, nitrates or leukocyte esterase positive Performed By: #### U A ####[facility] ([facility])[address] [address] VIR UROBILINOGEN 2 eu/dL Abnormal <1.1 eu/dL [facility] Comment on above: Order Comment: Clean catch, midstreamif symptomatic. Urine culture if positive for bacteria, blood, protein, white blood count over 5, nitrates or leukocyte esterase positive Performed By: #### U A ####[facility] ([facility])[address] [facility] [address], [place] [address] VIR URINE CULTUREon 01-15-2025 Bacteria identified Cx Nom (U) CULTURE RESULTS <10,000 ORGANISMS/mL NORMAL URO GENITAL [place] Normal [facility] Comment on above: Performed By: #### U C ####[facility] ([facility])[address] [facility] [address], [place] [address] VIR Glucose Poct Glucometerson 0 12-30-2024 Commemt1 Glu2: Cleaned Meter Normal [facility] Comment on above: Result Comment: PERF ORMED BY: [facility] [address] [place] [address] PATHOLOGIST SLITTING MACHINE OPERATOR YVONNE RODRIGUEZ M.D. Performed By: #### G LULS #### Point of Care testing , Glucose [Mass/Vol] 106 mg/dL Normal [facility] Comment on above: Result Comment: [place] Glucose Reference Range is dependent on time and content of last meal. Glucose of more than 200 mg/dL in a nonstressed, ambulatory subject supports the diagnosis of Diabetes Mellitus. Performed By: #### G LULS #### Point of Care testing , [place] 12-18-2024 JEOVANY Telephone ([place]) -------- RUTH SMITH ([id number]) 1970 M Date Time Provider Department 12/18/24 [...] Spoke with pt, reviewed below message from [facility]. Patient denies the following red flag [...] UGI and lower GI scopes on Monday. Jessica Frya 12/26/2024 11:17 AM Signed Pt calling to ask if something could be called in for pain? He states this is neck and leg pain. He is not sleeping well or eating much because of this. Please advise Pharm: Stephani Hernadez, Komal Valdes APRN.OPTICAL ENGINEER 12/26/2024 1:56 PM Signed Office visit reviewed with Dr. Rinaldi who recommended consult to [facility] Continue Gabapentin 400/400/800 Komal Hernadez APRN.OPTICAL ENGINEER Karen Lopez LPN 12/27/2024 2:06 PM Signed Spoke with pt, reviewed below message, pt verbalized understanding. [facility] verified home address. Deepa Fragoso 01/03/2025 2:07 PM Signed Pt called for clarification on appt. Pt scheduled for today 01/03/25 for follow up visit and asked if the visit should be done with today with Komal Hernadez, or should the patient see Chronic pain. Attempted to reach in office for clarification, [facility] out to provider [facility]. Per Komal Hernadez OPTICAL ENGINEER, Patient should see Chronic pain clinic first [...] (PRILOSEC) 40 (more content not included)... Normal [facility] HISTORY PHYSICALon HISTORY PHYSICAL HNO ID: [id number] Author: ABRAHAN RINALDI MD Service: Pain Management [...] December 16, 2024 TIME: 8:12 AM Normal [facility] HISTORY PHYSICAL HNO ID: [id number] Author: MARC NULL APRN.OPTICAL ENGINEER Service: ? Author Type: Nurse Practitioner Type: [...] December 16, 2024 TIME: 7:50 AM Normal [facility] OPERATIVE NOon 12-16-2024 OPERATIVE NO HNO ID: [id number] Author: ABRAHAN RINALDI MD Service: Pain Management Author Type: Physician Type: Operative Report Filed: 12/16/2024 08:27 Note Text: Patient Name Medical Record # Ruth Smith [id number] Date of : 1970 Admit Date: December 16, 2024 Sex / Age: male/54 year old Discharge Date: December 16, 2024 Attending Physician: Abrahan Rinaldi MD Date: December 16, 2024 Service: OPERATIVE REPORT LOG ID: [id number] Surgery/Procedure Date: 12/16/2024 Incision/Procedure Start Time: 8:16 AM Incision Close/Procedure End Time: 8:20 AM Surgeon(s)/Proceduralist (s) and Loan Processor(s): Surgeons and Role: * Abrahan Rinaldi MD - Primary No Additional Staff PREOPERATIVE DIAGNOSIS: Right Lumbosacral Radiculopathy and Lumbar Postlaminectomy Syndrome POSTOPERATIVE DIAGNOSIS: Same NAME OF OPERATION: Right L5-S1 Transforaminal Epidural Steroid injection # 1 under fluoroscopic guidance. SURGEON: Abrahan Rinaldi MD PHOTOGRAPHER: None ANESTHESIA: Moderate sedation and local anesthesia [...] Drains: None. Implantable Device: None. Specimen: None. Abrahan Alvarado MD performed the entire procedure. ASSESSMENT AND [...] MD Pain Management December 16, 2024 Normal [facility] US abdomen limitedon 025 US abdomen limited [facility] [address] [place], [place] [id number] Ultrasound Report Signed Patient: Ruth Smith MR#: [id number] : 1970 Acct:[id number] Age/Sex: 54 / M ADM Date: 12/12/24 Loc: Room: Type: [facility] Attending Dr: Guillermo Thornton MD Ordering [...] Kuo M.D. 12/12/2024 7:59 PM Dictation Location: [facility]- Tech: Keren Hope Transcribed By: YAZ 12/12/241958 Dictated By: Thierry Kuo MD 12/12/241954 Signed By: 12/12/241958 [facility] Measure post void residualon 12-04-2024 Volume 83 [facility] CNPNon 12-02-2024 CNPN Telephone ([place]OR[place]) -------- RUTH SMITH ([id number]) 1970 M Date Time Provider Department 12/02/24 ABRAHAN RINALDI During your visit today, we recorded the following information about you: Brennen Agrawal 12/02/2024 9:22 AM Signed Right L5-S1 TFESI AVA SMITHERY [id number] NIMCO 12/16 -THINNERS +DM Patient was made aware that the [facility] will call the day prior to scheduled procedure between the hours of 12 and 4 pm to advise patient of arrival time the day of procedure. 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 on the day of their [...] (HCC) [E11.42] Order(s):SURGICAL REQUEST - ELECTIVE (03/2020) [[id number]] Order #: [id number]: 1 Prescriptions as of 12/02/2024 - hyoscyamine [...] leg [M54.10] 11/25/2024 Encounter Status:Closed by BRENNEN ARGAWAL on 12/02/24 Normal [facility] CARCINOEMBRYONIC ANTIGENon 0 11-29-2024 Carcinoembryonic Ag [Mass/Vol] 4.1 ng/mL High [facility] - 2.9 ng/mL [facility] Comment on above: Carcinoembryonic ant igen test is used as an aid in monitoring response to treatment or recurrence in patients with established colorectal, breast, lung, prostatic, pancreatic, and ovarian carcinomas. Clinical correlation is required. The Carcinoembryonic antigen test was performed using the [employer] DXI paramagnetic particle chemiluminescent immunoassay method. Results obtained with different assay methods or kits cannot be used interchangeably. CBC W Auto Differential pane l (Bld)on 11-29-2024 Basophils (Bld) [#/Vol] 0.05 10*3/uL [facility] Basophils/100 WBC (Bld) 0.6 % [facility] Differential cell count method Nom (Bld) Auto [facility] Eosinophils (Bld) [#/Vol] 0.03 10*3/uL [facility] Eosinophils/100 WBC (Bld) 0.3 % [facility] Erythrocyte distribution width (RBC) [Ratio] 15.2 % High 11.5 - 15.0 % [facility] Hematocrit (Bld) [Volume fraction] 46.3 % 39.0 - 51.0 % [facility] Hemoglobin (Bld) [Mass/Vol] 15.3 g/dL 13.0 - 17.0 g/dL [facility] Immature granulocytes (Bld) [#/Vol] 0.04 10*3/uL [facility] Immature granulocytes/100 WBC (Bld) 0.5 % [facility] Interpretation and review of laboratory results Abnormal [facility] Lymphocytes (Bld) [#/Vol] 2.06 10*3/uL [facility] Lymphocytes/100 WBC (Bld) 23.7 % [facility] MCH (RBC) [Entitic mass] 27.5 pg 26.0 - 34.0 pg [facility] MCHC (RBC) [Mass/Vol] 33 g/dL 30.5 - 36.0 g/dL [facility] MCV (RBC) [Entitic vol] 83.1 fL 80.0 - 100.0 fL [facility] Monocytes (Bld) [#/Vol] 0.52 10*3/uL NINF [facility] Monocytes/100 WBC (Bld) 6 % [facility] Neutrophils (Bld) [#/Vol] 5.99 10*3/uL [facility] Neutrophils/100 WBC (Bld) 68.9 % [facility] Nucleated RBC (Bld) [#/Vol] NINF [facility] Nucleated RBC/100 WBC (Bld) [Ratio] 0 % /100 WBC [facility] Platelet mean volume (Bld) [Entitic vol] 12.9 fL High 9.0 - 12.7 fL [facility] Platelets (Bld) [#/Vol] 135 10*3/uL Low [facility] RBC (Bld) [#/Vol] 5.57 10*6/uL 4.20 - 6.00 m/uL [facility] WBC (Bld) [#/Vol] 8.69 10*3/uL [facility] Carcinoembryonic Ag [Mass/Vo l]on 11-29-2024 Interpretation and review of laboratory results Abnormal [facility] Comprehensive metabolic 2000 panelOrdered By: Malou Webber on 11-29-2024 Albumin [Mass/Vol] 4.8 g/dL 3.9 - 4.9 g/dL [facility] ALP [Catalytic activity/Vol] 80 U/L 38 - 113 U/L [facility] ALT [Catalytic activity/Vol] 7 U/L Low 10 - 54 U/L [facility] Anion gap [Moles/Vol] 14 mmol/L 8 - 15 mmol/L [facility] AST [Catalytic activity/Vol] 14 U/L 14 - 40 U/L [facility] Bilirubin [Mass/Vol] 0.6 mg/dL 0.2 - 1 .3 mg/dL [facility] Calcium [Mass/Vol] 10.3 mg/dL High 8.5 - 10. 2 mg/dL [facility] Chloride [Moles/Vol] 101 mmol/L 98 - 10 7 mmol/L [facility] CO2 [Moles/Vol] 23 mmol/L 22 - 30 mmol/L [facility] Creatinine [Mass/Vol] 0.77 mg/dL 0.73 - 1.22 mg/dL [facility] GFR/1.73 sq M.predicted among non-blacks MDRD (S/P/Bld) [Vol rate/Area] 105 mL/min/{1.73_m2} - PINF [facility] Comment on above: Estimated Glomerular Filtration Rate [...] 150 mg/dL High 74 - 99 mg/dL [facility] Comment on above: The [place] Diab[employer] Association (ADA) provides guidance for [...] Standards of Medical Care in Diabetes 2016, [place] Diabetes Association. Diabetes Care. 2016.39(Suppl 1). Potassium [Moles/Vol] 4.2 mmol/L 3.7 - 5.1 mmol/L [facility] Protein [Mass/Vol] 7.6 g/dL 6.3 - 8.0 g/dL [facility] Sodium [Moles/Vol] 138 mmol/L 136 - 144 mmol/L [facility] Urea nitrogen [Mass/Vol] 10 mg/dL 9 - 24 mg/dL [facility] FOLATE, SERUMon 11-29-2024 Folate [Mass/Vol] 11.6 ng/mL 4.7 - PINF ng/mL [facility] LACTATE DEHYDROGENASEon 11-12 LDH [Catalytic activity/Vol] 130 U/L Low 135 - 225 U/L [facility] Comment on above: Hemolysis present. T he [...] clinically indicated. No Panel InformationOrdered By: Malou Webber on 11-29-2024 Interpretation and review of laboratory results Abnormal [facility] No Panel Informationon 11-29 Interpretation and review of laboratory results Normal [facility] Nuclear Ab IA Ql (S)on 11-29 LEATHA Scr Qual Negative Negative [facility] Comment on above: The qualitative anti nuclear antibody screen test performed using the following antigens: dsDNA, Chromatin, Ribosomal P, SS-A 60, SS-A 52, SS-B, Sm, SmRNP, DISTRIBUTION CLERK A, DISTRIBUTION CLERK 68, Scl-70, Deidra-1, and Centromere B. Methodology: Multiplex flow immunoassay. Interpretation and review of laboratory results Normal [facility] VITAMIN B12on 11-29-2024 Cobalamin (Vitamin B12) [Mass/Vol] 306 pg/mL 232 - 1245 pg/mL [facility] CBC W Auto Differential pane l (Bld)on 11-28-2024 Basophils (Bld) [#/Vol] 0.05 10*3/uL Normal <0.11 [facility] Comment on above: Order Comment: Speci men Type: BLOOD SPECIMENOrdering Facility: [facility] Address: [address] [place] [address] Performed By: #### 5 7021-8 ####[facility] LABCLIA [id number] [place] [address] Basophils/100 WBC (Bld) 0.6 % Normal [facility] Comment on above: Order Comment: Speci men Type: BLOOD SPECIMENOrdering Facility: [facility] Address: [address] [place] [address] Performed By: #### 5 7021-8 ####[facility] LABCLIA [id number] [place] [address] Differential cell count method Nom (Bld) Auto Normal [facility] Comment on above: Order Comment: Speci men Type: BLOOD SPECIMENOrdering Facility: [facility] Address: [address] [place] [address] Performed By: #### 5 7021-8 ####[facility] LABCLIA [id number] [place] [address] Eosinophils (Bld) [#/Vol] 0.03 10*3/uL Normal <0.46 [facility] Comment on above: Order Comment: Speci men Type: BLOOD SPECIMENOrdering Facility: [facility] Address: [address] [place] [address] Performed By: #### 5 7021-8 ####[facility] LABCLIA [id number] [place] [address] Eosinophils/100 WBC (Bld) 0.3 % Normal [facility] Comment on above: Order Comment: Speci men Type: BLOOD SPECIMENOrdering Facility: [facility] Address: [address] [place] [address] Performed By: #### 5 7021-8 ####[facility] LABCLIA [id number] [place] [address] Erythrocyte distribution width (RBC) [Ratio] 15.2 % High 11.5-15.0 [facility] Comment on above: Order Comment: Speci men Type: BLOOD SPECIMENOrdering Facility: [facility] Address: [address] [place] [address] Performed By: #### 5 7021-8 ####[facility] LABCLIA [id number] [place] [address] Hematocrit (Bld) [Volume fraction] 46.3 % Normal 39.0-51.0 [facility] Comment on above: Order Comment: Speci men Type: BLOOD SPECIMENOrdering Facility: [facility] Address: [address] [place] [address] Performed By: #### 5 7021-8 ####[facility] LABCLIA [id number] [place] [address] Hemoglobin (Bld) [Mass/Vol] 15.3 g/dL Normal 13.0-17.0 [facility] Comment on above: Order Comment: Speci men Type: BLOOD SPECIMENOrdering Facility: [facility] Address: [address] [place] [address] Performed By: #### 5 7021-8 ####[facility] LABCLIA [id number] [place] [address] Immature granulocytes (Bld) [#/Vol] 0.04 10*3/uL Normal <0.10 [facility] Comment on above: Order Comment: Speci men Type: BLOOD SPECIMENOrdering Facility: [facility] Address: [address] [place] [address] Performed By: #### 5 7021-8 ####[facility] LABCLIA [id number] [place] [address] Immature granulocytes/100 WBC (Bld) 0.5 % Normal [facility] Comment on above: Order Comment: Speci men Type: BLOOD SPECIMENOrdering Facility: [facility] Address: [address] [place] [address] Performed By: #### 5 7021-8 ####[facility] LABCLIA [id number] [place] [address] Lymphocytes (Bld) [#/Vol] 2.06 10*3/uL Normal 1.00-4.00 [facility] Comment on above: Order Comment: Speci men Type: BLOOD SPECIMENOrdering Facility: [facility] Address: [address] [place] [address] Performed By: #### 5 7021-8 ####[facility] LABCLIA [id number] [place] [address] Lymphocytes/100 WBC (Bld) 23.7 % Normal [facility] Comment on above: Order Comment: Speci men Type: BLOOD SPECIMENOrdering Facility: [facility] Address: [address] [place] [address] Performed By: #### 5 7021-8 ####[facility] LABCLIA [id number] [place] [address] MCH (RBC) [Entitic mass] 27.5 pg Normal 26.0-34.0 [facility] Comment on above: Order Comment: Speci men Type: BLOOD SPECIMENOrdering Facility: [facility] Address: [address] [place] [address] Performed By: #### 5 7021-8 ####[facility] LABCLIA [id number] [place] [address] MCHC (RBC) [Mass/Vol] 33.0 g/dL Normal 30.5-36.0 [facility] Comment on above: Order Comment: Speci men Type: BLOOD SPECIMENOrdering Facility: [facility] Address: [address] [place] [address] Performed By: #### 5 7021-8 ####[facility] LABCLIA [id number] [place] [address] MCV (RBC) [Entitic vol] 83.1 fL Normal 80.0-100.0 [facility] Comment on above: Order Comment: Speci men Type: BLOOD SPECIMENOrdering Facility: [facility] Address: [address] [place] [address] Performed By: #### 5 7021-8 ####[facility] LABCLIA [id number] [place] [address] Monocytes (Bld) [#/Vol] 0.52 10*3/uL Normal <0.87 [facility] Comment on above: Order Comment: Speci men Type: BLOOD SPECIMENOrdering Facility: [facility] Address: [address] [place] [address] Performed By: #### 5 7021-8 ####[facility] LABCLIA [id number] [place] [address] Monocytes/100 WBC (Bld) 6.0 % Normal [facility] Comment on above: Order Comment: Speci men Type: BLOOD SPECIMENOrdering Facility: [facility] Address: [address] [place] [address] Performed By: #### 5 7021-8 ####[facility] LABCLIA [id number] [place] [address] Neutrophils (Bld) [#/Vol] 5.99 10*3/uL Normal 1.45-7.50 [facility] Comment on above: Order Comment: Speci men Type: BLOOD SPECIMENOrdering Facility: [facility] Address: [address] [place] [address] Performed By: #### 5 7021-8 ####[facility] LABCLIA [id number] [place] [address] Neutrophils/100 WBC (Bld) 68.9 % Normal [facility] Comment on above: Order Comment: Speci men Type: BLOOD SPECIMENOrdering Facility: [facility] Address: [address] [place] [address] Performed By: #### 5 7021-8 ####[facility] LABCLIA [id number] [place] [address] Nucleated RBC (Bld) [#/Vol] 10*3/uL Normal <0.01 [facility] Comment on above: Order Comment: Speci men Type: BLOOD SPECIMENOrdering Facility: [facility] Address: [address] [place] [address] Performed By: #### 5 7021-8 ####[facility] LABIA [id number] [place] [address] Nucleated RBC/100 WBC (Bld) [Ratio] 0.0 /100 WBC Normal [facility] Comment on above: Order Comment: Speci men Type: BLOOD SPECIMENOrdering Facility: [facility] Address: [address] [place] [address] Performed By: #### 5 7021-8 ####[facility] LABCLIA [id number] [place] [address] Platelet mean volume (Bld) [Entitic vol] 12.9 fL High 9.0-12.7 [facility] Comment on above: Order Comment: Speci men Type: BLOOD SPECIMENOrdering Facility: [facility] Address: [address] [place] [address] Performed By: #### 5 7021-8 ####[facility] LABCLIA [id number] [place] [address] Platelets (Bld) [#/Vol] 135 10*3/uL Low 150-400 [facility] Comment on above: Order Comment: Speci men Type: BLOOD SPECIMENOrdering Facility: [facility] Address: [address] [place] [address] Performed By: #### 5 7021-8 ####[facility] LABCLIA [id number] [place] [address] RBC (Bld) [#/Vol] 5.57 10*6/uL Normal 4.20-6.00 [facility] Comment on above: Order Comment: Speci men Type: BLOOD SPECIMENOrdering Facility: [facility] Address: [address] [place] [address] Performed By: #### 5 7021-8 ####[facility] LABCLIA [id number] [place] [address] WBC (Bld) [#/Vol] 8.69 10*3/uL Normal 3.70-11.00 [facility] Comment on above: Order Comment: Speci men Type: BLOOD SPECIMENOrdering Facility: [facility] Address: [address] [place] [address] Performed By: #### 5 7021-8 ####[facility] LABCLIA [id number] [place] [address] CEA SerPl-mCncon 11-28-2024 Carcinoembryonic Ag [Mass/Vol] 4.1 ng/mL High <=2.9 [facility] Comment on above: Order Comment: Speci men Type: BLOOD SPECIMENOrdering Facility: [facility] Address: [address] [place] [address] [place] [address] Result Comment: Carc inoembryonic antigen test is used as an aid in monitoring response to treatment or recurrence in patients with established colorectal, breast, lung, prostatic, pancreatic, and ovarian carcinomas. Clinical correlation is required. The Carcinoembryonic antigen test was performed using the [employer] DXI paramagnetic particle chemiluminescent immunoassay method. Results obtained with different assay methods or kits cannot be used interchangeably. Performed By: #### 2 039-6 ####[facility] LABCLIA [id number] [address] STATES OF [facility] CNOVSPon 11-28-2024 CNOVSP Visit (SP) Office ([place]) -------- RUTH SMITH ([id number]) 1970 M Date Time Provider Department 11/28/24 4:00 PM ZAC CROUCH During your visit today, we recorded the following information about you: Temperature Pulse Respiration Blood pressure 97.9 degrees 91/minute 18/minute 143/83 Weight 105 kg Zac Crouch MD 11/29/2024 8:20 AM Signed PATIENT NAME: Ruth Smith CLINIC NO.: [id number] ATTENDING PHYSICIAN: Zac Crouch MD DATE OF SERVICE: November 28, [address] Abrahan Rinaldi [address] [facility] [address] thank you for referring Ruth Smith for [...] in NA (more content not included)... Normal [facility] 11-28-2024 Copper [Mass/Vol] 83 ug/dL Normal 70-140 [facility] Comment on above: Order Comment: Speci men Type: BLOOD SPECIMENOrdering Facility: [facility] Address: [address] [place] [address] Result Comment: This test was developed, and its performance characteristics determined by the [facility] Department of Pathology and Laboratory Medicine. It has not been cleared or approved by the FDA. The [facility] Department of Pathology and Laboratory Medicine is regulated under CLIA as qualified to perform high-complexity testing. This test is used for clinical purposes. It should not be regarded as investigational or for research. Performed By: #### C ABUNDIO, 5763-8 ####[facility] LABCLIA [id number] [place] [address] [facility] Comprehensive metabolic 2000 panelon 11-28-2024 Albumin [Mass/Vol] 4.8 g/dL Normal 3.9-4.9 [facility] Comment on above: Order Comment: Speci men Type: BLOOD SPECIMENOrdering Facility: [facility] Address: [address] [place] [address] Performed By: #### 2 532-0, 97107-0 ####[facility] LABCLIA [id number] [place] [address] ALP [Catalytic activity/Vol] 80 U/L Normal 38-113 [facility] Comment on above: Order Comment: Speci men Type: BLOOD SPECIMENOrdering Facility: [facility] Address: [address] [place] [address] Performed By: #### 2 532-0, 91368-4 ####[facility] LABCLIA [id number] [place] [address] ALT [Catalytic activity/Vol] 7 U/L Low 10-54 [facility] Comment on above: Order Comment: Speci men Type: BLOOD SPECIMENOrdering Facility: [facility] Address: [address] [place] [address] Performed By: #### 2 532-0, ####[facility] LABCLIA [id number] [place] [address] Anion gap [Moles/Vol] 14 mmol/L Normal 8-15 [facility] Comment on above: Order Comment: Speci men Type: BLOOD SPECIMENOrdering Facility: [facility] Address: [address] [place] [address] Performed By: #### 2 532-0, ####[facility] LABCLIA [id number] [place] [address] AST [Catalytic activity/Vol] 14 U/L Normal 14-40 [facility] Comment on above: Order Comment: Speci men Type: BLOOD SPECIMENOrdering Facility: [facility] Address: [address] [place] [address] Performed By: #### 2 532-0, ####[facility] LABCLIA [id number] [place] [address] Bilirubin [Mass/Vol] 0.6 mg/dL Normal 0.2-1.3 [facility] Comment on above: Order Comment: Speci men Type: BLOOD SPECIMENOrdering Facility: [facility] Address: [address] [place] [address] Performed By: #### 2 532-0, ####[facility] LABCLIA [id number] [place] [address] Calcium [Mass/Vol] 10.3 mg/dL High 8.5-10.2 [facility] Comment on above: Order Comment: Speci men Type: BLOOD SPECIMENOrdering Facility: [facility] Address: [address] [place] [address] Performed By: #### 2 532-0, 41544-0 ####[facility] LABCLIA [id number] [place] [address] Chloride [Moles/Vol] 101 mmol/L Normal 98-107 [facility] Comment on above: Order Comment: Speci men Type: BLOOD SPECIMENOrdering Facility: [facility] Address: [address] [place] [address] Performed By: #### 2 532-0, 87735-1 ####[facility] LABCLIA [id number] [place] [address] CO2 [Moles/Vol] 23 mmol/L Normal 22-30 [facility] Comment on above: Order Comment: Speci men Type: BLOOD SPECIMENOrdering Facility: [facility] Address: [address] [place] [address] Performed By: #### 2 532-0, 79311-2 ####[facility] LABCLIA [id number] [place] [address] Creatinine [Mass/Vol] 0.77 mg/dL Normal 0.73-1.22 [facility] Comment on above: Order Comment: Speci men Type: BLOOD SPECIMENOrdering Facility: [facility] Address: [address] [place] [address] Performed By: #### 2 532-0, 81264-8 ####[facility] LABCLIA [id number] [place] [address] Creatinine and Glomerular filtration rate.predicted panel (S/P/Bld) 105 mL/min/1.73m??? Normal >=60 [facility] Comment on above: Order Comment: Speci men Type: BLOOD SPECIMENOrdering Facility: [facility] Address: [address] [place] [address] Result Comment: Lou mated Glomerular Filtration Rate [...] reflect actual GFR. Performed By: #### 2 532-0, 53545-2 ####[facility] LABCLIA [id number] [place] [address] Glucose [Mass/Vol] 150 mg/dL High 74-99 [facility] Comment on above: Order Comment: Speci men Type: BLOOD SPECIMENOrdering Facility: [facility] Address: [address] [place] [address] Result Comment: The [place] Diabetes Association (ADA) provides guidance for cutoff [...] Standards of Medical Care in Diabetes 2016, [place] [employer] Association. Diabetes Care. 2016.39(Suppl 1). Performed By: #### 2 532-0, 30090-2 ####[facility] LABCLIA [id number] [place] [address] Potassium [Moles/Vol] 4.2 mmol/L Normal 3.7-5.1 [facility] Comment on above: Order Comment: Speci men Type: BLOOD SPECIMENOrdering Facility: [facility] Address: [address] [place] [address] Performed By: #### 2 532-0, 01169-0 ####[facility] LABCLIA [id number] [place] [address] Protein [Mass/Vol] 7.6 g/dL Normal 6.3-8.0 [facility] Comment on above: Order Comment: Speci men Type: BLOOD SPECIMENOrdering Facility: [facility] Address: [address] [place] [address] Performed By: #### 2 532-0, 50551-1 ####[facility] LABCLIA [id number] [place] [address] Sodium [Moles/Vol] 138 mmol/L Normal 136-144 [facility] Comment on above: Order Comment: Speci men Type: BLOOD SPECIMENOrdering Facility: [facility] Address: [address] [place] [address] Performed By: #### 2 532-0, 34120-1 ####[facility] LABCLIA [id number] [place] [address] Urea nitrogen [Mass/Vol] 10 mg/dL Normal 9-24 [facility] Comment on above: Order Comment: Speci men Type: BLOOD SPECIMENOrdering Facility: [facility] Address: [address] [place] [address] Performed By: #### 2 532-0, 93104-0 ####[facility] LABCLIA [id number] [place] [address] Folate SerPl-mCncon 11-29-19 25 Folate [Mass/Vol] 11.6 ng/mL Normal >4.7 [facility] Comment on above: Order Comment: Speci men Type: BLOOD SPECIMENOrdering Facility: [facility] Address: [address] [place] [address] Performed By: #### 2 132-9, 2284-8 ####[facility] LABCLIA [id number] [place] [address] [place] LDH SerPl-cCncon 11-28-2024 LDH [Catalytic activity/Vol] 130 U/L Low 135-225 [facility] Comment on above: Order Comment: Speci men Type: BLOOD SPECIMENOrdering Facility: [facility] Address: [address] [place] [address] Result Comment: Hemo lysis present. The origin of the hemolysis, in vitro versus an in vivo hemolytic process, cannot be distinguished via this assay alone. In vitro hemolysis may lead to non-physiological (spurious) elevation in lactate dehydrogenase (LDH) results. The result should be interpreted in context of the clinical setting and other test results. Suggest reorder as clinically indicated. Performed By: #### 2 532-0, 01333-0 ####[facility] LABCLIA [id number] [place] [id number] Nuclear Ab IA Ql (S)on 11-28 LEATHA SCR QUAL Negative Normal Negative [facility] Comment on above: Order Comment: Speci men Type: BLOOD SPECIMENOrdering Facility: [facility] Address: [address] [place] [address] Result Comment: The qualitative antinuclear antibody screen test performed using the following antigens: dsDNA, Chromatin, Ribosomal P, SS-A 60, SS-A 52, SS-B, Sm, SmRNP, DISTRIBUTION CLERK A, DISTRIBUTION CLERK 68, Scl-70, Deidra-1, and Centromere B. Methodology: Multiplex flow immunoassay. Performed By: #### 4 7383-5 ####[facility] LABIA [id number] [place] [address] [place] Vit B12 [facility] Cobalamin (Vitamin B12) [Mass/Vol] 306 pg/mL Normal 232-1245 [facility] Comment on above: Order Comment: Speci men Type: BLOOD SPECIMENOrdering Facility: [facility] Address: [address] [place] [address] Performed By: #### 2 132-9, 2284-8 ####[facility] LABIA [id number] [place] [address] [place] Zinc [facility]2024 Zinc [Mass/Vol] 76 ug/dL Normal 60-120 [facility] Comment on above: Order Comment: Speci men Type: BLOOD SPECIMENOrdering Facility: [facility] Address: [address] [place] [address] Result Comment: This test was developed, and its performance characteristics determined by the [facility] Department of Pathology and Laboratory Medicine. It has not been cleared or approved by the FDA. The [facility] Department of Pathology and Laboratory Medicine is regulated under CLIA as qualified to perform high-complexity testing. This test is used for clinical purposes. It should not be regarded as investigational or for research. Performed By: #### C ABUNDIO, 5763-8 ####[facility] GERARD [id number] ZBIGNIEWVeronica GALLE[place] [id number] [place] 11-25-2024 CNPN Telephone (HEMASA) -------- RUTH SMITH ([id number]) 1970 M Date Time Provider Department 11/25/24 [...] by DONAVON DE LA GARZA on 11/25/24 Normal [facility] CNOVon 11-22-2024 CNOV Office Visit (PAINLN ) -------- RUTH SMITH ([id number]) 1970 M Date Time Provider Department 11/22/24 2:00 PM ABRAHAN RINALDI PAINLN During your visit today, we recorded the following information about you: Pulse Weight Height 110/minute 102.1 kg 1.854 m Abrahan Rinaldi MD 11/25/2024 8:23 AM Signed SUBJECTIVE: Mr. 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 Grid Trimmer: No Passive conservative therapy lasting 6 weeks in the last six months (see below) 1. Medical devises: No 2. Acupuncture: No 3. Tens unit: No 4. Prescription pain medication: Yes 5. NSAIDS: Yes OCCUPATIONAL HISTORY: [employer] HISTORY OF TRAUMA/OVERUSE OF AREA: No [...] PAST SURGICAL HISTORY OF back injections EXAMINATION: YZZXBSAR-PACZEWH-MWWZJUT OR: Scoliosis: No Pelvic Tilt: No Leg [...] symmetric, nor (more content not included)... Normal [facility] CBC AND AUTO DIFFon 11-13-19 25 ABSOLUTE BASOPHIL 0.0 X10E9/L Normal 0.0-0.2 [facility] Comment on above: Performed By: #### C LAUREN, CMP #### [facility] ([id number]) [address] [place] [address] 18697 ABSOLUTE NEUTROPHIL 5.8 X10E9/L Normal 1.5-6.6 [facility] Comment on above: Performed By: #### Venu AGUILAR, CMP #### [facility] ([id number]) [address] [place] [address] 96875 Basophils/100 WBC (Bld) 0.5 % Normal [facility] Comment on above: Performed By: #### Venu AGUILAR, CMP #### [facility] ([id number]) [address] [place] [address] 93767 Eosinophils (Bld) [#/Vol] 0.0 10*3/uL Normal 0.0-0.4 [facility] Comment on above: Performed By: #### Venu AGUILAR, CMP #### [facility] ([id number]) [address] [place] [address] 98169 Eosinophils/100 WBC (Bld) 0.3 % Normal [facility] Comment on above: Performed By: #### C LAUREN, CMP #### [facility] ([id number]) [address] [place] [address] 18140 Erythrocyte distribution width (RBC) [Ratio] 15.9 % High 11.5-15.0 [facility] Comment on above: Performed By: #### C LAUREN, CMP #### [facility] ([id number]) [address] [place] [address] 59185 Hematocrit (Bld) [Volume fraction] 45.0 % Normal 39-49 [facility] Comment on above: Performed By: #### C LAUREN, CMP #### [facility] ([id number]) [address] [place] [address] 74379 Hemoglobin (Bld) [Mass/Vol] 15.2 g/dL Normal 13.0-17.0 [facility] Comment on above: Performed By: #### C LAUREN, CMP #### [facility] ([id number]) [address] [place] [address] 02134 Lymphocytes (Bld) [#/Vol] 1.7 10*3/uL Normal 1.0-3.5 [facility] Comment on above: Performed By: #### C LAUREN, CMP #### [facility] ([id number]) [address] [place] [address] 17017 Lymphocytes/100 WBC (Bld) 20.7 % Normal [facility] Comment on above: Performed By: #### C BCA, CMP #### [facility] ([id number]) [address] [place] [address] 20797 MCH (RBC) [Entitic mass] 27.7 pg Normal 27-34 [facility] Comment on above: Performed By: #### C BCA, CMP #### [facility] ([id number]) [address] [place] [address] 49997 MCHC (RBC) [Mass/Vol] 33.8 g/dL Normal 32-36 [facility] Comment on above: Performed By: #### C LAUREN, CMP #### [facility] ([id number]) [address] [place] [address] 12294 MCV (RBC) [Entitic vol] 82 fL Normal 80-100 [facility] Comment on above: Performed By: #### C LAUREN, CMP #### [facility] ([id number]) [address] [place] [address] 56985 Monocytes (Bld) [#/Vol] 0.6 10*3/uL Normal 0-0.9 [facility] Comment on above: Performed By: #### C LAUREN, CMP #### [facility] ([id number]) [address] [place] [address] 65706 Monocytes/100 WBC (Bld) 7.6 % Normal [facility] Comment on above: Performed By: #### C LAUREN, CMP #### [facility] ([id number]) [address] [place] [address] 87169 Neutrophils/100 WBC (Bld) 70.9 % Normal [facility] Comment on above: Performed By: #### C LAUREN, CMP #### [facility] ([id number]) [address] [place] [address] 93708 Platelet mean volume (Bld) [Entitic vol] 11.0 fL Normal 7-12 [facility] Comment on above: Performed By: #### C LAUREN, CMP #### [facility] ([id number]) [address] [place] [address] 00616 Platelets (Bld) [#/Vol] 101 10*3/uL Low 150-450 [facility] Comment on above: Performed By: #### C LAUREN, CMP #### [facility] ([id number]) [address] [place] [address] 34272 RBC COUNT 5.48 X10E12/L Normal 4.10-5.70 [facility] Comment on above: Performed By: #### C BCA, CMP #### [facility] ([id number]) [address] [place] [address] 10612 WBC (Bld) [#/Vol] 8.2 10*3/uL Normal 4.0-11.0 [facility] Comment on above: Performed By: #### C BCA, CMP #### [facility] ([id number]) [address] [place] [address] 27150 COMPREHENSIVE METABOLIC PANE [place] 11-12-2024 Albumin [Mass/Vol] 4.2 g/dL Normal 3.2-5.3 [facility] Comment on above: Performed By: #### C BCA, CMP #### [facility] ([id number]) [address] [place] [address] 40083 ALP [Catalytic activity/Vol] 63 U/L Normal 39-130 [facility] Comment on above: Performed By: #### C BCA, CMP #### [facility] ([id number]) [address] [place] [address] 31126 ALT [Catalytic activity/Vol] 11 U/L Normal 0-40 [facility] Comment on above: Performed By: #### C BCA, CMP #### [facility] ([id number]) [address] [place] [address] 47915 Anion gap [Moles/Vol] 11 mmol/L Normal 5-15 [facility] Comment on above: Performed By: #### C BCA, CMP #### [facility] ([id number]) [address] [place] [address] 90765 AST [Catalytic activity/Vol] 19 U/L Normal 0-41 [facility] Comment on above: Performed By: #### C BCA, CMP #### [facility] ([id number]) [address] [place] [address] 73431 Bilirubin [Mass/Vol] 0.8 mg/dL Normal 0.3-1.2 [facility] Comment on above: Performed By: #### C BCA, CMP #### [facility] ([id number]) [address] [place] [address] 46255 Calcium [Mass/Vol] 9.3 mg/dL Normal 8.5-10.5 [facility] Comment on above: Performed By: #### C BCA, CMP #### [facility] ([id number]) [address] [place] [address] 51189 Chloride [Moles/Vol] 101 mmol/L Normal 98-109 [facility] Comment on above: Performed By: #### C BCA, CMP #### [facility] ([id number]) [address] [place] [address] 46030 CO2 [Moles/Vol] 26 mmol/L Normal 22-32 [facility] Comment on above: Performed By: #### C BCA, CMP #### [facility] ([id number]) [address] [place] [address] 44309 Creatinine [Mass/Vol] 0.86 mg/dL Normal 0.70-1.20 [facility] Comment on above: Result Comment: METH OD TRACEABLE TO IDMS STANDARD Performed By: #### C BCA, CMP #### [facility] ([id number]) [address] [place] [address] 23446 eGFR (CKD-EPI) NON-RACE DEPENDENT >90 Normal >59 [facility] Comment on above: Result Comment: Reported eGFR is based on the CKD-EPI 2020 equation that does not use a race coefficient. Performed By: #### C BCA, CMP #### [facility] ([id number]) [address] [place] [address] 23244 Glucose [Mass/Vol] 147 mg/dL High 65-99 [facility] Comment on above: Performed By: #### C BCA, CMP #### [facility] ([id number]) [address] [place] [address] 00655 Potassium [Moles/Vol] 4.0 mmol/L Normal 3.5-5.0 [facility] Comment on above: Performed By: #### C BCA, CMP #### [facility] ([id number]) [address] [place] [address] 38499 Protein [Mass/Vol] 7.5 g/dL Normal 6.0-8.0 [facility] Comment on above: Performed By: #### C BCA, CMP #### [facility] ([id number]) [address] [place] [address] 14483 Sodium [Moles/Vol] 138 mmol/L Normal 134-146 [facility] Comment on above: Performed By: #### C BCA, CMP #### [facility] ([id number]) [address] [place] [address] 87667 Urea nitrogen [Mass/Vol] 15 mg/dL Normal 5-23 [facility] Comment on above: Performed By: #### C BCA, CMP #### [facility] ([id number]) [address] [place] [address] ABDOMEN AND PELVIS WO CON Ton [...] low as reasonably achievable. Finalized by Alex Telelz MD on 11/12/2024 4:42 PM Normal [facility] CT LUMBAR RECONSTRUCTIONon 0 11-12-2024 CT LUMBAR [...] Octavio Bagley on 11/12/2024 4:48 PM Normal [facility] URN MACROSCOPIC NURon 2024 BILIRUBIN MANNIE Negative Normal NEG [facility] Comment on above: Performed By: #### N UM ####[facility] ([id number])[address] [place] [address] 60838 BLOOD/HGB MANNIE Negative Normal NEG [facility] Comment on above: Performed By: #### N UM ####[facility] ([id number])[address] [place] [address] [place] [address] GLUCOSE MANNIE Negative Normal [facility] Comment on above: Performed By: #### N UM ####[facility] ([id number])[address] [place] [address] [place] [address] KETONES MANNIE Negative Normal NEG [facility] Comment on above: Performed By: #### N UM ####[facility] ([id number])[address] [place] [address] [place] [address] LEUKOCYTE ESTERASE MANNIE Negative Normal NEG [facility] Comment on above: Performed By: #### N UM ####[facility] ([id number])[address] [place] [address] [place] [address] NITRITE MANNIE Negative Normal NEG [facility] Comment on above: Performed By: #### N UM ####[facility] ([id number])[address] [place] [address] 75642 PH MANNIE 7.5 Normal 5.0-8.5 [facility] Comment on above: Performed By: #### N UM ####[facility] ([id number])[address] [place] [address] 41401 PROTEIN MANNIE Negative Normal NEG [facility] Comment on above: Performed By: #### N UM ####[facility] ([id number])[address] [place] [address] 39255 SPECIFIC GRAVITY MANNIE 1.015 Normal 1.003-1 .03 5 [facility] Comment on above: Performed By: #### N UM ####[facility] ([id number])[address] [place] [address] 01087 UROBILINOGEN MANNIE 1.0 eu/dL Normal <1.1 [facility] Comment on above: Performed By: #### N UM ####[facility] ([id number])[address] [place] [address] 08453 XR SPINE LUMBAR 2 OR 3 VWSon [...] intact. Colonic stool burden is moderate. IMPRESSION: Emsu-cy-lburnppl degenerative changes and slight retrolisthesis L3 on L4. Finalized by Aaron Wright MD on 11/03/2024 1:06 PM Normal [facility] Magnetic resonance imaging r eportOrdered By: Thierry Kuo on 08-27-2024 Study report [facility] [place] [address] [place] [address]35 MRI Report Signed Patient: Ruth Smith MR #: [id number] : 1970 Acct:[id number] Age/Sex: 54 / M ADM Date: 5 Loc: MR Room: Type: [facility] Attending Dr: Marcell DORMAN Copies to: DANDY Coon~ Ordering Provider: DANDY Coon Date of Service: 08/27/24 MR/MR lumbar spine wo/w con: M54.16,M47.816,M54.50,G8 9.29,Z98.898 ([id number]) XR/XR pre/post mri xray: M54.16,M47.816,M54.50,G8 9.29,Z98.890 MR lumbar spine wo/w con, XR pre/post mri xray 08/27/2024 1:49 PM SIGNS AND SYMPTOMS: ^M54.16,M47.816,M54.50,G 89.29,Z98.898 low back pain COMPARISON: MRI 04/15/2022 Contrast: 20 cc of ProHance was administered for the postcontrast imaging. FINDINGS: X-rays lumbar spine, 2 views: Multilevel degenerative changes throughout the lumbar spine with moderate severe disc space narrowing L4-S1 and L2-3. Anbi-jy-urbpajec disc space narrowing elsewhere. Facet of the [...] Thierry Kuo M.D.08/27/2024 3:33 PM Dictation Location: [place] [address] Transcribed By: [facility] 08/27/24 1533 Dictated By: Thierry Kuo MD 08/27/24 1519 Signed By: 08/27/24 1533 [facility] Work Phone: XR pre/post mri xrayon 08-27 XR pre/post mri xray [facility] [place] [address] MRI Report Signed Patient: Ruth Smith MR#: [id number] : 1970 Acct:[id number] Age/Sex: 54 / M ADM Date: 08/27/24 Loc: MR Room: Type: [facility] Attending Dr: Marcell DORMAN Copies to: DANDY Coon Ordering Provider: DANDY Coon Date of Service: 08/27/24 MR/MR lumbar spine wo/w con: M54.16,M47.816,M54.50,G8 9.29,Z98.898 ([id number]) XR/XR pre/post mri xray: M54.16,M47.816,M54.50,G8 9.29,Z98.890 MR lumbar spine wo/w con, XR pre/post mri xray 08/27/2024 1:49 PM SIGNS AND SYMPTOMS: M54.16,M47.816,M54.50,G8 9.29,Z98.898 low back pain COMPARISON: MRI 04/15/2022 Contrast: 20 cc of ProHance was administered for the postcontrast imaging. FINDINGS: X-rays lumbar spine, 2 views: Multilevel degenerative changes throughout the lumbar spine with moderate severe disc space narrowing L4-S1 and L2-3. Angz-cf-ygulqkrm disc space narrowing elsewhere. Facet of the [...] Thierry Kuo M.D.08/27/2024 3:33 PM Dictation Location: [facility]23 Transcribed By: [facility] 08/27/24 1533 Dictated By: Thierry Kuo MD 08/27/24 1519 Signed By: 08/27/24 1533 Normal [facility] EMG 2 Extremitieson 08-05-20 24 Normal EMG of the bilateral upper extremities [facility] [employer] NVC -12 Nerveson Normal [facility] the bilateral [facility] $ Large Joint Injection: R g reater trochanteric bursaon 07-25-2024 Ang Figueroa MD 07/25/2024 2:13 PM $ Large Joint Injection: R greater trochanteric bursa on 07/25/2024 2:12 PM Indications: pain Details: 21 G needle, lateral approach Medications: 40 mg triamcinolone acetonide 40 mg/mL; 5 mL BUPivacaine HCl 0.25 % (2.5 mg/mL) MANUALLY TRANSCRIBED RESULTS [facility] [employer] [facility] XR HIP RT 2-3 VIEWS W [...] Tellez MD on 07/25/2024 2:52 PM Normal [facility] XR SPINE LUMB BENDING ONLY 2 [...] Tellez MD on 07/16/2024 4:38 PM Normal [facility] XR KNEE RT 1 OR 2 VWSon [...] Womack MD on 06/21/2024 10:10 AM Normal [facility] $ Large Joint Injection: R k nathanon 06-20-2024 Ang Figueroa MD 2023 2:44 PM $ Large Joint Injection: R knee on 06/20/2024 2:43 PM Indications: pain Details: 21 G needle, anterolateral approach Medications: 40 mg triamcinolone acetonide 40 mg/mL; 5 mL BUPivacaine HCl 0.25 % (2.5 mg/mL) MANUALLY TRANSCRIBED RESULTS [facility] Fibrin D-dimer DDU (PPP) [Ma ss/Vol]on 06-07-2024 D DIMER 309 ng/mL DDU High <255 [facility] Comment on above: Result Comment: Results >=255ng/mL [...] level. Performed By: #### 4 8066-5 #### [facility] ([id number]) [address] [place] [address] XR KNEE RT 1 OR 2 VWSon [...] Womack MD on 06/03/2024 3:54 PM Normal [facility] Fibrin D-dimer DDU (PPP) [Ma ss/Vol]on 05-07-2024 D DIMER 260 ng/mL DDU High <255 [facility] Comment on above: Result Comment: Results >=255ng/mL [...] level. Performed By: #### 4 8066-5 #### [facility] ([id number]) [address] [place] [address] XR HIP RT 2-3 VIEWS W OR [...] Trivedi DO on 05/07/2024 12:38 PM Normal [facility] Basic Metabolic Panelon 01-13 Anion gap [Moles/Vol] 10 mmol/L 5 - 15 mmol/L [facility] Calcium [Mass/Vol] 8.8 mg/dL 8.5 - 10. 5 mg/dL [facility] Chloride [Moles/Vol] 98 mmol/L 98 - 10 9 mmol/L [facility] CO2 [Moles/Vol] 26 mmol/L 22 - 32 mmol/L [facility] Creatinine [Mass/Vol] 0.59 mg/dL Low 0.60 - 1.30 mg/dL [facility] Comment on above: METHOD TRACEABLE TO [facility] STANDARD eGFR (CKD-EPI)non-race dependent - PINF [facility] Comment on above: Reported eGFR is based on the CKD-EPI 2020 equation that does not use a race coefficient. Glucose [Mass/Vol] 156 mg/dL High 65 - 99 mg/dL [facility] Interpretation and review of laboratory results Abnormal [facility] Potassium [Moles/Vol] 3.7 mmol/L 3.5 - 5.0 mmol/L [facility] Sodium [Moles/Vol] 134 mmol/L 134 - 146 mmol/L [facility] Urea nitrogen [Mass/Vol] 11 mg/dL 5 - 23 mg/dL [facility] CBC auto differentialon 01-13 Basophils (Bld) [#/Vol] 0.1 10*3/uL [facility] Basophils/100 WBC (Bld) 0.9 % [facility] Eosinophils (Bld) [#/Vol] 0.1 10*3/uL [facility] Eosinophils/100 WBC (Bld) 0.8 % [facility] Erythrocyte distribution width (RBC) [Ratio] 15.8 % High 11.5 - 15.0 % [facility] Hematocrit (Bld) [Volume fraction] 29.1 % Low 39 - 49 % [facility] Hemoglobin (Bld) [Mass/Vol] 9.9 g/dL Low 13.0 - 17.0 g/dL [facility] Interpretation and review of laboratory results Abnormal [facility] Lymphocytes (Bld) [#/Vol] 1.2 10*3/uL [facility] Lymphocytes/100 WBC (Bld) 18.3 % [facility] MCH (RBC) [Entitic mass] 28.5 pg 27 - 34 pg [facility] MCHC (RBC) [Mass/Vol] 33.9 g/dL 32 - 3 6 g/dL [facility] MCV (RBC) [Entitic vol] 84 fL 80 - 100 fL [facility] Monocytes (Bld) [#/Vol] 0.7 10*3/uL [facility] Monocytes/100 WBC (Bld) 10.2 % [facility] Neutrophils (Bld) [#/Vol] 4.5 10*3/uL [facility] Neutrophils/100 WBC (Bld) 69.8 % [facility] Platelet mean volume (Bld) [Entitic vol] 9.8 fL 7 - 12 fL [facility] Platelets (Bld) [#/Vol] 238 10*3/uL [facility] RBC (Bld) [#/Vol] 3.46 10*6/uL Low [facility] WBC corrected for nucl RBC Auto (Bld) [#/Vol] 6.4 [facility] Glucose Glucometer (BldC) [M ass/Vol]on 02-03-2024 Glucose [Mass/Vol] 168 mg/dL High 65 - 99 mg/dL [facility] Interpretation and review of laboratory results Abnormal [facility] Basic Metabolic Panelon 01-13 Anion gap [Moles/Vol] 11 mmol/L 5 - 15 mmol/L [facility] Calcium [Mass/Vol] 9.3 mg/dL 8.5 - 10. 5 mg/dL [facility] Chloride [Moles/Vol] 98 mmol/L 98 - 10 9 mmol/L [facility] CO2 [Moles/Vol] 27 mmol/L 22 - 32 mmol/L [facility] Creatinine [Mass/Vol] 0.63 mg/dL 0.60 - 1.30 mg/dL [facility] Comment on above: METHOD TRACEABLE TO [facility] STANDARD eGFR (CKD-EPI)non-race dependent - PINF [facility] Comment on above: Reported eGFR is based on the CKD-EPI 2020 equation that does not use a race coefficient. Glucose [Mass/Vol] 143 mg/dL High 65 - 99 mg/dL [facility] Interpretation and review of laboratory results Abnormal [facility] Potassium [Moles/Vol] 3.9 mmol/L 3.5 - 5.0 mmol/L [facility] Sodium [Moles/Vol] 136 mmol/L 134 - 146 mmol/L [facility] Urea nitrogen [Mass/Vol] 14 mg/dL 5 - 23 mg/dL [facility] CBC auto differentialon -2 Basophils (Bld) [#/Vol] 0.1 10*3/uL [facility] Basophils/100 WBC (Bld) 1.0 % [facility] Eosinophils (Bld) [#/Vol] 0.1 10*3/uL [facility] Eosinophils/100 WBC (Bld) 1.2 % [facility] Erythrocyte distribution width (RBC) [Ratio] 15.9 % High 11.5 - 15.0 % [facility] Hematocrit (Bld) [Volume fraction] 30.3 % Low 39 - 49 % [facility] Hemoglobin (Bld) [Mass/Vol] 10.3 g/dL Low 13.0 - 17.0 g/dL [facility] Interpretation and review of laboratory results Abnormal [facility] Lymphocytes (Bld) [#/Vol] 1.4 10*3/uL [facility] Lymphocytes/100 WBC (Bld) 21.4 % [facility] MCH (RBC) [Entitic mass] 28.9 pg 27 - 34 pg [facility] MCHC (RBC) [Mass/Vol] 34.1 g/dL 32 - 3 6 g/dL [facility] MCV (RBC) [Entitic vol] 85 fL 80 - 100 fL [facility] Monocytes (Bld) [#/Vol] 0.6 10*3/uL [facility] Monocytes/100 WBC (Bld) 9.4 % [facility] Neutrophils (Bld) [#/Vol] 4.3 10*3/uL [facility] Neutrophils/100 WBC (Bld) 67.0 % [facility] Platelet mean volume (Bld) [Entitic vol] 10.0 fL 7 - 12 fL [facility] Platelets (Bld) [#/Vol] 235 10*3/uL [facility] RBC (Bld) [#/Vol] 3.58 10*6/uL Low [facility] WBC corrected for nucl RBC Auto (Bld) [#/Vol] 6.4 [facility] Glucose Glucometer (BldC) [M ass/Vol]on 02-02-2024 Glucose [Mass/Vol] 182 mg/dL High 65 - 99 mg/dL [facility] Interpretation and review of laboratory results Abnormal [facility] Glucose [Mass/Vol] 131 mg/dL High 65 - 99 mg/dL [facility] Interpretation and review of laboratory results Abnormal [facility] Glucose [Mass/Vol] 167 mg/dL High 65 - 99 mg/dL [facility] Interpretation and review of laboratory results Abnormal [facility] Glucose [Mass/Vol] 146 mg/dL High 65 - 99 mg/dL [facility] Interpretation and review of laboratory results Abnormal [facility] US.doppler Lower extremity v ein - righton [...] at the phone number beside their name. [facility] [employer] [facility] Radiology Study observation (narrative) [facility] [employer] [facility] US.doppler Lower extremity v ein - rightOrdered By: Rox Miller on 02-02-2024 [facility] Work Phone: Basic Metabolic Panelon 01-13 Anion gap [Moles/Vol] 13 mmol/L 5 - 15 mmol/L [facility] Calcium [Mass/Vol] 9.0 mg/dL 8.5 - 10. 5 mg/dL [facility] Chloride [Moles/Vol] 98 mmol/L 98 - 10 9 mmol/L [facility] CO2 [Moles/Vol] 23 mmol/L 22 - 32 mmol/L [facility] Creatinine [Mass/Vol] 0.66 mg/dL 0.60 - 1.30 mg/dL [facility] Comment on above: METHOD TRACEABLE TO IDMS STANDARD eGFR (CKD-EPI)non-race dependent - PINF [facility] Comment on above: Reported eGFR is based on the CKD-EPI 2020 equation that does not use a race coefficient. Glucose [Mass/Vol] 130 mg/dL High 65 - 99 mg/dL [facility] Interpretation and review of laboratory results Abnormal [facility] Potassium [Moles/Vol] 3.8 mmol/L 3.5 - 5.0 mmol/L [facility] Sodium [Moles/Vol] 134 mmol/L 134 - 146 mmol/L [facility] Urea nitrogen [Mass/Vol] 15 mg/dL 5 - 23 mg/dL [facility] CBC auto differentialon 01-13 Basophils (Bld) [#/Vol] 0.1 10*3/uL [facility] Basophils/100 WBC (Bld) 0.9 % [facility] Eosinophils (Bld) [#/Vol] 0.1 10*3/uL [facility] Eosinophils/100 WBC (Bld) 1.0 % [facility] Erythrocyte distribution width (RBC) [Ratio] 15.5 % High 11.5 - 15.0 % [facility] Hematocrit (Bld) [Volume fraction] 31.0 % Low 39 - 49 % [facility] Hemoglobin (Bld) [Mass/Vol] 10.8 g/dL Low 13.0 - 17.0 g/dL [facility] Interpretation and review of laboratory results Abnormal [facility] Lymphocytes (Bld) [#/Vol] 1.3 10*3/uL [facility] Lymphocytes/100 WBC (Bld) 20.0 % [facility] MCH (RBC) [Entitic mass] 29.2 pg 27 - 34 pg [facility] MCHC (RBC) [Mass/Vol] 34.7 g/dL 32 - 3 6 g/dL [facility] MCV (RBC) [Entitic vol] 84 fL 80 - 100 fL [facility] Monocytes (Bld) [#/Vol] 0.6 10*3/uL [facility] Monocytes/100 WBC (Bld) 8.5 % [facility] Neutrophils (Bld) [#/Vol] 4.5 10*3/uL [facility] Neutrophils/100 WBC (Bld) 69.6 % [facility] Platelet mean volume (Bld) [Entitic vol] 10.4 fL 7 - 12 fL [facility] Platelets (Bld) [#/Vol] 273 10*3/uL [facility] RBC (Bld) [#/Vol] 3.69 10*6/uL Low [facility] WBC corrected for nucl RBC Auto (Bld) [#/Vol] 6.5 [facility] Glucose Glucometer (BldC) [M ass/Vol]on 02-01-2024 Glucose [Mass/Vol] 135 mg/dL High 65 - 99 mg/dL [facility] Interpretation and review of laboratory results Abnormal [facility] Glucose [Mass/Vol] 232 mg/dL High 65 - 99 mg/dL [facility] Interpretation and review of laboratory results Abnormal [facility] Glucose [Mass/Vol] 132 mg/dL High 65 - 99 mg/dL [facility] Interpretation and review of laboratory results Abnormal [facility] Glucose [Mass/Vol] 125 mg/dL High 65 - 99 mg/dL [facility] Interpretation and review of laboratory results Abnormal [facility] Basic Metabolic Panelon 01-12 Anion gap [Moles/Vol] 12 mmol/L 5 - 15 mmol/L [facility] Calcium [Mass/Vol] 9.0 mg/dL 8.5 - 10. 5 mg/dL [facility] Chloride [Moles/Vol] 95 mmol/L Low 98 - 10 9 mmol/L [facility] CO2 [Moles/Vol] 24 mmol/L 22 - 32 mmol/L [facility] Creatinine [Mass/Vol] 0.64 mg/dL 0.60 - 1.30 mg/dL [facility] Comment on above: METHOD TRACEABLE TO IDMI STANDARD eGFR (CKD-EPI)non-race dependent - PINF [facility] Comment on above: Reported eGFR is based on the CKD-EPI 2020 equation that does not use a race coefficient. Glucose [Mass/Vol] 205 mg/dL High 65 - 99 mg/dL [facility] Interpretation and review of laboratory results Abnormal [facility] Potassium [Moles/Vol] 4.1 mmol/L 3.5 - 5.0 mmol/L [facility] Sodium [Moles/Vol] 131 mmol/L Low 134 - 146 mmol/L [facility] Urea nitrogen [Mass/Vol] 13 mg/dL 5 - 23 mg/dL [facility] CBC without diffon Erythrocyte distribution width (RBC) [Ratio] 15.7 % High 11.5 - 15.0 % [facility] Hematocrit (Bld) [Volume fraction] 27.1 % Low 39 - 49 % [facility] Hemoglobin (Bld) [Mass/Vol] 9.4 g/dL Low 13.0 - 17.0 g/dL [facility] Interpretation and review of laboratory results Abnormal [facility] MCH (RBC) [Entitic mass] 28.8 pg 27 - 34 pg [facility] MCHC (RBC) [Mass/Vol] 34.7 g/dL 32 - 3 6 g/dL [facility] MCV (RBC) [Entitic vol] 83 fL 80 - 100 fL [facility] Platelet mean volume (Bld) [Entitic vol] 10.4 fL 7 - 12 fL [facility] Platelets (Bld) [#/Vol] 230 10*3/uL [facility] RBC (Bld) [#/Vol] 3.26 10*6/uL Low [facility] WBC corrected for nucl RBC Auto (Bld) [#/Vol] 11.2 High [facility] Glucose Glucometer (BldC) [M ass/Vol]on 01-31-2024 Glucose [Mass/Vol] 260 mg/dL High 65 - 99 mg/dL [facility] Interpretation and review of laboratory results Abnormal [facility] Glucose [Mass/Vol] 145 mg/dL High 65 - 99 mg/dL [facility] Interpretation and review of laboratory results Abnormal [facility] Glucose [Mass/Vol] 185 mg/dL High 65 - 99 mg/dL [facility] Interpretation and review of laboratory results Abnormal [facility] Glucose [Mass/Vol] 198 mg/dL High 65 - 99 mg/dL [facility] Interpretation and review of laboratory results Abnormal [facility] Osmolalityon 01-31-2024 Osmolality [Osmolality] 279 mosm/kg Low [facility] Osmolality (U) [Osmolality]o n 01-31-2024 [facility] Osmolality [Osmolality]on Interpretation and review of laboratory results Abnormal [facility] Osmolality, urineon 01-31-20 Osmolality (U) [Osmolality] 521 mosm/kg [facility] Sodium (U) [Moles/Vol]on [facility] Sodium, urine, randomon 01-12 Sodium (U) [Moles/Vol] 10 mmol/L [facility] Basic Metabolic Panelon 01-12 Anion gap [Moles/Vol] 9 mmol/L 5 - 15 mmol/L [facility] Calcium [Mass/Vol] 9.6 mg/dL 8.5 - 10. 5 mg/dL [facility] Chloride [Moles/Vol] 97 mmol/L Low 98 - 10 9 mmol/L [facility] CO2 [Moles/Vol] 29 mmol/L 22 - 32 mmol/L [facility] Creatinine [Mass/Vol] 0.65 mg/dL 0.60 - 1.30 mg/dL [facility] Comment on above: METHOD TRACEABLE TO [facility] STANDARD eGFR (CKD-EPI)non-race dependent - PINF [facility] Comment on above: Reported eGFR is based on the CKD-EPI 2020 equation that does not use a race coefficient. Glucose [Mass/Vol] 159 mg/dL High 65 - 99 mg/dL [facility] Interpretation and review of laboratory results Abnormal [facility] Potassium [Moles/Vol] 4.6 mmol/L 3.5 - 5.0 mmol/L [facility] Sodium [Moles/Vol] 135 mmol/L 134 - 146 mmol/L [facility] Urea nitrogen [Mass/Vol] 13 mg/dL 5 - 23 mg/dL [facility] CBC without diffon Erythrocyte distribution width (RBC) [Ratio] 15.9 % High 11.5 - 15.0 % [facility] Hematocrit (Bld) [Volume fraction] 34.6 % Low 39 - 49 % [facility] Hemoglobin (Bld) [Mass/Vol] 11.4 g/dL Low 13.0 - 17.0 g/dL [facility] Interpretation and review of laboratory results Abnormal [facility] MCH (RBC) [Entitic mass] 27.6 pg 27 - 34 pg [facility] MCHC (RBC) [Mass/Vol] 33.0 g/dL 32 - 3 6 g/dL [facility] MCV (RBC) [Entitic vol] 84 fL 80 - 100 fL [facility] Platelet mean volume (Bld) [Entitic vol] 10.2 fL 7 - 12 fL [facility] Platelets (Bld) [#/Vol] 180 10*3/uL [facility] RBC (Bld) [#/Vol] 4.13 10*6/uL [facility] WBC corrected for nucl RBC Auto (Bld) [#/Vol] 7.8 [facility] Glucose Glucometer (BldC) [M ass/Vol]on 01-30-2024 Glucose [Mass/Vol] 279 mg/dL High 65 - 99 mg/dL [facility] Interpretation and review of laboratory results Abnormal [facility] Glucose [Mass/Vol] 276 mg/dL High 65 - 99 mg/dL [facility] Interpretation and review of laboratory results Abnormal [facility] Glucose [Mass/Vol] 161 mg/dL High 65 - 99 mg/dL [facility] Interpretation and review of laboratory results Abnormal [facility] XR Femur - right 2 Viewson 0 01-30-2024 XR FEMUR RT 2+ VIEWS Clinical history:REMOVAL HARDWARE INTRAMEDULLARY NAIL/KATERYNA FEMUR right hip pain Comparison: 01/29/2024 Impression: Postoperative changes with new intramedullary kateryna placement. Near anatomic alignment. No evidence of immediate hardware complication. Finalized by Marc Paredes MD on 01/30/2024 1:43 PM [facility] Marc Paredes MD - 01/30/2024 XR FEMUR RT 2+ VIEWS Clinical history:REMOVAL HARDWARE INTRAMEDULLARY NAIL/KATERYNA FEMUR right hip pain Comparison: 01/29/2024 Impression: Postoperative changes with new intramedullary kateryna placement. Near anatomic alignment. No evidence of immediate hardware complication. Finalized by Marc Paredes MD on 01/30/2024 1:43 PM [facility] Jun Ortega MD - 01/30/2024 Clinical history: [...] Jun Ortega MD on 01/30/2024 1:28 PM [facility] Radiology Study observation (narrative) [facility] Radiology Study observation (narrative) [facility] XR Femur - right 2 ViewsOrde red By: Marc Paredes on 01-30-2024 [facility] Work Phone: XR Femur - right 2 ViewsOrde red By: Jun Ortega on 01-30-2024 [facility] Work Phone: APTTon 01-29-2024 aPTT Coag (PPP) [Time] 29 s [facility] Basic Metabolic Panelon 01-12 Anion gap [Moles/Vol] 14 mmol/L 5 - 15 mmol/L [facility] Calcium [Mass/Vol] 9.5 mg/dL 8.5 - 10. 5 mg/dL [facility] Chloride [Moles/Vol] 95 mmol/L Low 98 - 10 9 mmol/L [facility] CO2 [Moles/Vol] 22 mmol/L 22 - 32 mmol/L [facility] Creatinine [Mass/Vol] 0.54 mg/dL Low 0.60 - 1.30 mg/dL [facility] Comment on above: METHOD TRACEABLE TO IDMS STANDARD eGFR (CKD-EPI)non-race dependent - PINF [facility] Comment on above: Reported eGFR is based on the CKD-EPI 2020 equation that does not use a race coefficient. Glucose [Mass/Vol] 193 mg/dL High 65 - 99 mg/dL [facility] Interpretation and review of laboratory results Abnormal [facility] Potassium [Moles/Vol] 3.7 mmol/L 3.5 - 5.0 mmol/L [facility] Sodium [Moles/Vol] 131 mmol/L Low 134 - 146 mmol/L [facility] Urea nitrogen [Mass/Vol] 9 mg/dL 5 - 23 mg/dL [facility] CBC auto differentialon 01-12 Basophils (Bld) [#/Vol] 0.1 10*3/uL [facility] Basophils/100 WBC (Bld) 0.6 % [facility] Eosinophils (Bld) [#/Vol] 0.0 10*3/uL [facility] Eosinophils/100 WBC (Bld) 0.2 % [facility] Erythrocyte distribution width (RBC) [Ratio] 15.6 % High 11.5 - 15.0 % [facility] Hematocrit (Bld) [Volume fraction] 33.6 % Low 39 - 49 % [facility] Hemoglobin (Bld) [Mass/Vol] 11.9 g/dL Low 13.0 - 17.0 g/dL [facility] Interpretation and review of laboratory results Abnormal [facility] Lymphocytes (Bld) [#/Vol] 1.4 10*3/uL [facility] Lymphocytes/100 WBC (Bld) 14.6 % [facility] MCH (RBC) [Entitic mass] 29.0 pg 27 - 34 pg [facility] MCHC (RBC) [Mass/Vol] 35.5 g/dL 32 - 3 6 g/dL [facility] MCV (RBC) [Entitic vol] 82 fL 80 - 100 fL [facility] Monocytes (Bld) [#/Vol] 0.6 10*3/uL [facility] Monocytes/100 WBC (Bld) 6.6 % [facility] Neutrophils (Bld) [#/Vol] 7.4 10*3/uL High [facility] Neutrophils/100 WBC (Bld) 78.0 % [facility] Platelet mean volume (Bld) [Entitic vol] 10.1 fL 7 - 12 fL [facility] Platelets (Bld) [#/Vol] 192 10*3/uL [facility] RBC (Bld) [#/Vol] 4.11 10*6/uL [facility] WBC corrected for nucl RBC Auto (Bld) [#/Vol] 9.5 [facility] Cobalamin (Vitamin B12) [Mas s/Vol]on 01-29-2024 [facility] Ferritinon 01-29-2024 Ferritin [Mass/Vol] 220 ng/mL 24 - 336 ng/mL [facility] Ferritin [Mass/Vol]on 2023 [facility] Folateon 01-29-2024 Folate [Mass/Vol] 8.4 ng/mL 5.8 - PINF ng/mL [facility] Comment on above: NEW REFERENCE RANGE Folate [Mass/Vol]on 01-29-20 [facility] Glucose Glucometer (BldC) [M ass/Vol]on 01-29-2024 Glucose [Mass/Vol] 170 mg/dL High 65 - 99 mg/dL [facility] Interpretation and review of laboratory results Abnormal [facility] Glucose [Mass/Vol] 185 mg/dL High 65 - 99 mg/dL [facility] Interpretation and review of laboratory results Abnormal [facility] Glucose [Mass/Vol] 204 mg/dL High 65 - 99 mg/dL [facility] Interpretation and review of laboratory results Abnormal [facility] Iron and TIBCon 01-29-2024 Iron [Mass/Vol] 17 ug/dL Low 50 - 212 ug/dL [facility] Iron binding capacity [Mass/Vol] 357 ug/dL 250 - 425 ug/dL [facility] Iron saturation [Mass fraction] 5 Low [facility] No Panel Informationon 01-28 Interpretation and review of laboratory results Abnormal [facility] Prealbuminon 01-29-2024 Prealbumin IA [Mass/Vol] 9 mg/dL Low 18 - 45 mg/dL [facility] Protime & INRon 01-29-2024 INR Coag (PPP) [Relative time] 1.4 {INR} High [facility] Interpretation and review of laboratory results Abnormal [facility] PT Coag (PPP) [Time] 15.6 s High [facility] Reticulocyteson 01-29-2024 Reticulocytes/100 RBC (Bld) 3.9 % High 0.4 - 2.2 % [facility] Reticulocytes/100 RBC (Bld)o n 01-29-2024 Interpretation and review of laboratory results Abnormal [facility] Type and screen(includes ind irect yolanda)on 01-29-2024 ABO O [facility] Rh Nom (Bld) Positive [facility] Urinalysison 01-29-2024 Bilirubin Ql (U) Negative Negative^N egative [facility] Color (U) YELLOW YELLOW^YEL LOW [facility] Glucose (U) [Mass/Vol] Negative Negative^N egative mg/dL [facility] Hemoglobin Auto test strip Ql (U) Negative Negative^N egative [facility] Interpretation and review of laboratory results Abnormal [facility] Ketones (U) [Mass/Vol] Negative Negative^N egative mg/dL [facility] Leukocyte esterase Auto test strip Ql (U) Negative Negative^N egative [facility] Nitrite Auto test strip Ql (U) Negative Negative^N egative [facility] pH (U) 6.5 [pH] 5.0 - 8.5 [facility] Protein (U) [Mass/Vol] Negative Negative^N egative mg/dL [facility] Specific gravity Refractometry automated (U) [Rel density] 1.018 1.003 - 1.035 [facility] Turbidity Ql (U) CLEAR CLEAR^LEANDRA R [facility] Urobilinogen Qn (U) 4 High NINF [facility] Vitamin B12on 01-29-2024 Cobalamin (Vitamin B12) [Mass/Vol] 307 pg/mL 180 - 914 pg/mL [facility] Vitamin D 25 hydroxyon 01-28 Vitamin D+Metabolites [Mass/Vol] 31.7 ng/mL 30 - 100 ng/mL [facility] Comment on above: Vitamin D status 25 [place] Vitamin D Deficiency <20 ng/mL Insufficiency 20-29 ng/mL Sufficiency 30-100 ng/mL Toxicity >100 ng/mL NOTE: A pediatric reference range has not been established by the production welder of this kit. The [place] [employer] recommends a Vitamin D level of = or >20ng/mL in infants and children. Vitamin D+Metabolites [Mass/ Vol]on 01-29-2024 [facility] Basic Metabolic Panelon 01-12 Anion gap [Moles/Vol] 11 mmol/L 5 - 15 mmol/L [facility] Calcium [Mass/Vol] 9.3 mg/dL 8.5 - 10. 5 mg/dL [facility] Chloride [Moles/Vol] 101 mmol/L 98 - 10 9 mmol/L [facility] CO2 [Moles/Vol] 26 mmol/L 22 - 32 mmol/L [facility] Creatinine [Mass/Vol] 0.62 mg/dL 0.60 - 1.30 mg/dL [facility] Comment on above: METHOD TRACEABLE TO [facility] STANDARD eGFR (CKD-EPI)non-race dependent - PINF [facility] Comment on above: Reported eGFR is based on the CKD-EPI 2020 equation that does not use a race coefficient. Glucose [Mass/Vol] 150 mg/dL High 65 - 99 mg/dL [facility] Interpretation and review of laboratory results Abnormal [facility] Potassium [Moles/Vol] 4.0 mmol/L 3.5 - 5.0 mmol/L [facility] Sodium [Moles/Vol] 138 mmol/L 134 - 146 mmol/L [facility] Urea nitrogen [Mass/Vol] 12 mg/dL 5 - 23 mg/dL [facility] CBC auto differentialon 01-12 Basophils (Bld) [#/Vol] 0.0 10*3/uL [facility] Basophils/100 WBC (Bld) 0.7 % [facility] Eosinophils (Bld) [#/Vol] 0.0 10*3/uL [facility] Eosinophils/100 WBC (Bld) 0.7 % [facility] Erythrocyte distribution width (RBC) [Ratio] 16.3 % High 11.5 - 15.0 % [facility] Hematocrit (Bld) [Volume fraction] 33.7 % Low 39 - 49 % [facility] Hemoglobin (Bld) [Mass/Vol] 11.8 g/dL Low 13.0 - 17.0 g/dL [facility] Interpretation and review of laboratory results Abnormal [facility] Lymphocytes (Bld) [#/Vol] 1.4 10*3/uL [facility] Lymphocytes/100 WBC (Bld) 23.1 % [facility] MCH (RBC) [Entitic mass] 29.5 pg 27 - 34 pg [facility] MCHC (RBC) [Mass/Vol] 34.9 g/dL 32 - 3 6 g/dL [facility] MCV (RBC) [Entitic vol] 85 fL 80 - 100 fL [facility] Monocytes (Bld) [#/Vol] 0.6 10*3/uL [facility] Monocytes/100 WBC (Bld) 10.1 % [facility] Neutrophils (Bld) [#/Vol] 4.1 10*3/uL [facility] Neutrophils/100 WBC (Bld) 65.4 % [facility] Platelet mean volume (Bld) [Entitic vol] 10.7 fL 7 - 12 fL [facility] Platelets (Bld) [#/Vol] 113 10*3/uL Low [facility] RBC (Bld) [#/Vol] 3.99 10*6/uL Low [facility] WBC corrected for nucl RBC Auto (Bld) [#/Vol] 6.2 [facility] Glucose Glucometer (BldC) [M ass/Vol]on 01-22-2024 Glucose [Mass/Vol] 139 mg/dL High 65 - 99 mg/dL [facility] Interpretation and review of laboratory results Abnormal [facility] Glucose [Mass/Vol] 138 mg/dL High 65 - 99 mg/dL [facility] Interpretation and review of laboratory results Abnormal [facility] Glucose [Mass/Vol] 135 mg/dL High 65 - 99 mg/dL [facility] Interpretation and review of laboratory results Abnormal [facility] Magnesiumon 01-22-2024 Magnesium [Mass/Vol] 1.4 mg/dL Low 1.8 - 2 .6 mg/dL [facility] Magnesium [Mass/Vol]on 01-21 Interpretation and review of laboratory results Abnormal [facility] Basic Metabolic Panelon Anion gap [Moles/Vol] 12 mmol/L 5 - 15 mmol/L [facility] Calcium [Mass/Vol] 9.4 mg/dL 8.5 - 10. 5 mg/dL [facility] Chloride [Moles/Vol] 99 mmol/L 98 - 10 9 mmol/L [facility] CO2 [Moles/Vol] 26 mmol/L 22 - 32 mmol/L [facility] Creatinine [Mass/Vol] 0.71 mg/dL 0.60 - 1.30 mg/dL [facility] Comment on above: METHOD TRACEABLE TO [facility] STANDARD eGFR (CKD-EPI)non-race dependent - PINF [facility] Comment on above: Reported eGFR is based on the CKD-EPI 2020 equation that does not use a race coefficient. Glucose [Mass/Vol] 153 mg/dL High 65 - 99 mg/dL [facility] Interpretation and review of laboratory results Abnormal [facility] Potassium [Moles/Vol] 4.7 mmol/L 3.5 - 5.0 mmol/L [facility] Comment on above: SPECIMEN HEMOLYZED, RESULTS INCREASED [facility] HEMOLYZED Sodium [Moles/Vol] 137 mmol/L 134 - 146 mmol/L [facility] Comment on above: RESULTS QUESTIONABLE DUE TO HEMOLYSIS [facility] HEMOLYZED Urea nitrogen [Mass/Vol] 13 mg/dL 5 - 23 mg/dL [facility] CBC auto differentialon Basophils (Bld) [#/Vol] 0.0 10*3/uL [facility] Basophils/100 WBC (Bld) 0.7 % [facility] Eosinophils (Bld) [#/Vol] 0.1 10*3/uL [facility] Eosinophils/100 WBC (Bld) 1.1 % [facility] Erythrocyte distribution width (RBC) [Ratio] 16.6 % High 11.5 - 15.0 % [facility] Hematocrit (Bld) [Volume fraction] 34.9 % Low 39 - 49 % [facility] [facility] Hemoglobin (Bld) [Mass/Vol] 11.8 g/dL Low 13.0 - 17.0 g/dL [facility] Interpretation and review of laboratory results Abnormal [facility] Lymphocytes (Bld) [#/Vol] 1.3 10*3/uL [facility] Lymphocytes/100 WBC (Bld) 18.8 % [facility] MCH (RBC) [Entitic mass] 29.0 pg 27 - 34 pg [facility] MCHC (RBC) [Mass/Vol] 33.8 g/dL 32 - 3 6 g/dL [facility] MCV (RBC) [Entitic vol] 86 fL 80 - 100 fL [facility] Monocytes (Bld) [#/Vol] 0.6 10*3/uL [facility] Monocytes/100 WBC (Bld) 8.4 % [facility] Neutrophils (Bld) [#/Vol] 4.9 10*3/uL [facility] Neutrophils/100 WBC (Bld) 71.0 % [facility] Platelet mean volume (Bld) [Entitic vol] 11.4 fL 7 - 12 fL [facility] Platelets (Bld) [#/Vol] 129 10*3/uL Low [facility] RBC (Bld) [#/Vol] 4.07 10*6/uL Low [facility] WBC corrected for nucl RBC Auto (Bld) [#/Vol] 6.9 [facility] Glucose Glucometer (dC) [M ass/Vol]on 01-21-2024 Glucose [Mass/Vol] 223 mg/dL High 65 - 99 mg/dL [facility] Interpretation and review of laboratory results Abnormal [facility] Glucose [Mass/Vol] 169 mg/dL High 65 - 99 mg/dL [facility] Interpretation and review of laboratory results Abnormal [facility] Glucose [Mass/Vol] 151 mg/dL High 65 - 99 mg/dL [facility] Interpretation and review of laboratory results Abnormal [facility] Glucose [Mass/Vol] 147 mg/dL High 65 - 99 mg/dL [facility] Interpretation and review of laboratory results Abnormal [facility] Magnesiumon 01-21-2024 Magnesium [Mass/Vol] 1.7 mg/dL Low 1.8 - 2 .6 mg/dL [facility] Comment on above: SPECIMEN HEMOLYZED, RESULTS INCREASED MARKEDLY HEMOLYZED Magnesium [Mass/Vol]on 01-20 Interpretation and review of laboratory results Abnormal [facility] XR Pelvis and Hip - right 2 Viewson 01-21-2024 XR HIP RT 2-3 VIEWS W OR WO PELVIS Clinical history:increasing pain - recent IMN right hip right hip pain Comparison: 01/18/2024 Impression: Stable postoperative changes and alignment with right proximal femoral intramedullary kateryna. No new or acute process. Finalized by Marc Paredes MD on 01/21/2024 3:06 PM CHRISTIANRAMarc Whipple MD - 01/21/2024 XR HIP RT 2-3 VIEWS W OR WO PELVIS Clinical history:increasing pain - recent IMN right hip right hip pain Comparison: 01/18/2024 Impression: Stable postoperative changes and alignment with right proximal femoral intramedullary kateryna. No new or acute process. Finalized by Marc Paredes MD on 01/21/2024 3:06 PM [facility] Radiology Study observation (narrative) [facility] XR Pelvis and Hip - right 2 ViewsOrdered By: Marc Paredes on 01-21-2024 [facility] Work Phone: Basic Metabolic Panelon Anion gap [Moles/Vol] 10 mmol/L 5 - 15 mmol/L [facility] Calcium [Mass/Vol] 8.8 mg/dL 8.5 - 10. 5 mg/dL [facility] Chloride [Moles/Vol] 102 mmol/L 98 - 10 9 mmol/L [facility] CO2 [Moles/Vol] 24 mmol/L 22 - 32 mmol/L [facility] Creatinine [Mass/Vol] 0.64 mg/dL 0.60 - 1.30 mg/dL [facility] Comment on above: METHOD TRACEABLE TO IDMS STANDARD eGFR (CKD-EPI)non-race dependent - PINF [facility] Comment on above: Reported eGFR is based on the CKD-EPI 2020 equation that does not use a race coefficient. Glucose [Mass/Vol] 119 mg/dL High 65 - 99 mg/dL [facility] Potassium [Moles/Vol] 4.3 mmol/L 3.5 - 5.0 mmol/L [facility] Sodium [Moles/Vol] 136 mmol/L 134 - 146 mmol/L [facility] Urea nitrogen [Mass/Vol] 14 mg/dL 5 - 23 mg/dL [facility] CBC without diffon Erythrocyte distribution width (RBC) [Ratio] 16.4 % High 11.5 - 15.0 % [facility] Hematocrit (Bld) [Volume fraction] 34.9 % Low 39 - 49 % [facility] Hemoglobin (Bld) [Mass/Vol] 11.8 g/dL Low 13.0 - 17.0 g/dL [facility] Interpretation and review of laboratory results Abnormal [facility] MCH (RBC) [Entitic mass] 28.7 pg 27 - 34 pg [facility] MCHC (RBC) [Mass/Vol] 33.7 g/dL 32 - 3 6 g/dL [facility] MCV (RBC) [Entitic vol] 85 fL 80 - 100 fL [facility] Platelet mean volume (Bld) [Entitic vol] 11.0 fL 7 - 12 fL [facility] Platelets (Bld) [#/Vol] 71 10*3/uL Low [facility] RBC (Bld) [#/Vol] 4.09 10*6/uL Low [facility] WBC corrected for nucl RBC Auto (Bld) [#/Vol] 6.7 [facility] Glucose Glucometer (BldC) [M ass/Vol]on 01-20-2024 Glucose [Mass/Vol] 205 mg/dL High 65 - 99 mg/dL [facility] Interpretation and review of laboratory results Abnormal [facility] Glucose [Mass/Vol] 131 mg/dL High 65 - 99 mg/dL [facility] Interpretation and review of laboratory results Abnormal [facility] Glucose [Mass/Vol] 173 mg/dL High 65 - 99 mg/dL [facility] Interpretation and review of laboratory results Abnormal [facility] Glucose [Mass/Vol] 120 mg/dL High 65 - 99 mg/dL [facility] Interpretation and review of laboratory results Abnormal [facility] Magnesiumon 01-20-2024 Magnesium [Mass/Vol] 1.6 mg/dL Low 1.8 - 2 .6 mg/dL [facility] No Panel Informationon 01-19 Interpretation and review of laboratory results Abnormal [facility] Basic Metabolic Panelon Anion gap [Moles/Vol] 11 mmol/L 5 - 15 mmol/L [facility] Calcium [Mass/Vol] 9.0 mg/dL 8.5 - 10. 5 mg/dL [facility] Chloride [Moles/Vol] 102 mmol/L 98 - 10 9 mmol/L [facility] CO2 [Moles/Vol] 23 mmol/L 22 - 32 mmol/L [facility] Creatinine [Mass/Vol] 0.57 mg/dL Low 0.60 - 1.30 mg/dL [facility] Comment on above: METHOD TRACEABLE TO IDMI STANDARD eGFR (CKD-EPI)non-race dependent - PINF [facility] Comment on above: Reported eGFR is based on the CKD-EPI 2020 equation that does not use a race coefficient. Glucose [Mass/Vol] 150 mg/dL High 65 - 99 mg/dL [facility] Interpretation and review of laboratory results Abnormal [facility] Potassium [Moles/Vol] 4.5 mmol/L 3.5 - 5.0 mmol/L [facility] Sodium [Moles/Vol] 136 mmol/L 134 - 146 mmol/L [facility] Urea nitrogen [Mass/Vol] 13 mg/dL 5 - 23 mg/dL [facility] CBC without diffon Erythrocyte distribution width (RBC) [Ratio] 16.5 % High 11.5 - 15.0 % [facility] Hematocrit (Bld) [Volume fraction] 38.9 % Low 39 - 49 % [facility] Hemoglobin (Bld) [Mass/Vol] 13.4 g/dL 13.0 - 17.0 g/dL [facility] Interpretation and review of laboratory results Abnormal [facility] MCH (RBC) [Entitic mass] 29.1 pg 27 - 34 pg [facility] MCHC (RBC) [Mass/Vol] 34.4 g/dL 32 - 3 6 g/dL [facility] MCV (RBC) [Entitic vol] 85 fL 80 - 100 fL [facility] Platelet mean volume (Bld) [Entitic vol] 11.0 fL 7 - 12 fL [facility] Platelets (Bld) [#/Vol] 96 10*3/uL Low [facility] RBC (Bld) [#/Vol] 4.60 10*6/uL [facility] WBC corrected for nucl RBC Auto (Bld) [#/Vol] 9.8 [facility] Glucose Glucometer (BldC) [M ass/Vol]on 01-19-2024 Glucose [Mass/Vol] 201 mg/dL High 65 - 99 mg/dL [facility] Interpretation and review of laboratory results Abnormal [facility] Glucose [Mass/Vol] 223 mg/dL High 65 - 99 mg/dL [facility] Interpretation and review of laboratory results Abnormal [facility] Glucose [Mass/Vol] 139 mg/dL High 65 - 99 mg/dL [facility] Interpretation and review of laboratory results Abnormal [facility] Glucose [Mass/Vol] 243 mg/dL High 65 - 99 mg/dL [facility] Interpretation and review of laboratory results Abnormal [facility] Glucose [Mass/Vol] 141 mg/dL High 65 - 99 mg/dL [facility] Interpretation and review of laboratory results Abnormal [facility] Magnesiumon 01-19-2024 Magnesium [Mass/Vol] 1.4 mg/dL Low 1.8 - 2 .6 mg/dL [facility] Magnesium [Mass/Vol]on 01-18 Interpretation and review of laboratory results Abnormal [facility] Basic Metabolic Panelon 06- Anion gap [Moles/Vol] 9 mmol/L 5 - 15 mmol/L [facility] Calcium [Mass/Vol] 9.4 mg/dL 8.5 - 10. 5 mg/dL [facility] Chloride [Moles/Vol] 101 mmol/L 98 - 10 9 mmol/L [facility] CO2 [Moles/Vol] 28 mmol/L 22 - 32 mmol/L [facility] Creatinine [Mass/Vol] 0.70 mg/dL 0.60 - 1.30 mg/dL [facility] Comment on above: METHOD TRACEABLE TO [facility] STANDARD eGFR (CKD-EPI)non-race dependent - PINF [facility] Comment on above: Reported eGFR is based on the CKD-EPI 2020 equation that does not use a race coefficient. Glucose [Mass/Vol] 123 mg/dL High 65 - 99 mg/dL [facility] Interpretation and review of laboratory results Abnormal [facility] Potassium [Moles/Vol] 3.9 mmol/L 3.5 - 5.0 mmol/L [facility] Sodium [Moles/Vol] 138 mmol/L 134 - 146 mmol/L [facility] Urea nitrogen [Mass/Vol] 8 mg/dL 5 - 23 mg/dL [facility] CBC without diffon Erythrocyte distribution width (RBC) [Ratio] 17.0 % High 11.5 - 15.0 % [facility] Hematocrit (Bld) [Volume fraction] 44.5 % 39 - 49 % [facility] Hemoglobin (Bld) [Mass/Vol] 15.2 g/dL 13.0 - 17.0 g/dL [facility] Interpretation and review of laboratory results Abnormal [facility] MCH (RBC) [Entitic mass] 29.2 pg 27 - 34 pg [facility] MCHC (RBC) [Mass/Vol] 34.2 g/dL 32 - 3 6 g/dL [facility] MCV (RBC) [Entitic vol] 86 fL 80 - 100 fL [facility] Platelet mean volume (Bld) [Entitic vol] 10.8 fL 7 - 12 fL [facility] Platelets (Bld) [#/Vol] 80 10*3/uL Low [facility] RBC (Bld) [#/Vol] 5.21 10*6/uL [facility] WBC corrected for nucl RBC Auto (Bld) [#/Vol] 6.2 [facility] Glucose Glucometer (BldC) [M ass/Vol]on 01-18-2024 Glucose [Mass/Vol] 238 mg/dL High 65 - 99 mg/dL [facility] Interpretation and review of laboratory results Abnormal [facility] Glucose [Mass/Vol] 197 mg/dL High 65 - 99 mg/dL [facility] Interpretation and review of laboratory results Abnormal [facility] Glucose [Mass/Vol] 188 mg/dL High 65 - 99 mg/dL [facility] Interpretation and review of laboratory results Abnormal [facility] Glucose [Mass/Vol] 143 mg/dL High 65 - 99 mg/dL [facility] Interpretation and review of laboratory results Abnormal [facility] Glucose [Mass/Vol] 119 mg/dL High 65 - 99 mg/dL [facility] Interpretation and review of laboratory results Abnormal [facility] Hemoglobin A1con 01-18-2024 Average glucose Estimated from glycated hemoglobin (Bld) [Mass/Vol] 143 mg/dL [facility] HbA1c (Bld) [Mass fraction] 6.6 % High 4.4 - 5.6 % [facility] Comment on above: NOTE ADA Guidelines Result HgbA1c Normal : less than 5.7 % Prediabetes : 5.7 % to 6.4 % Diabetes : > 6.4 % Use with caution in patients with abnormal hemoglobin variants as the half-life of red blood cells and in vivo glycation rates are affected. Interpretation and review of laboratory results Abnormal [facility] Magnesiumon 01-18-2024 Magnesium [Mass/Vol] 1.7 mg/dL Low 1.8 - 2 .6 mg/dL [facility] Magnesium [Mass/Vol]on 01-17 Interpretation and review of laboratory results Abnormal [facility] XR Lumbar spine 2 or 3 [...] Clifford Jauregui MD on 01/18/2024 8:31 AM [facility] Clifford Jauregui MD - 01/18/2024 HISTORY: A [...] Clifford Jauregui MD on 01/18/2024 8:31 AM [facility] Radiology Study observation (narrative) [facility] XR Lumbar spine 2 or 3 Views Ordered By: Clifford Jauregui on 01-18-2024 [facility] Work Phone: XR Pelvis and Hip [...] by Nathan Skinner on 01/18/2024 3:43 PM [facility] Radiology Study observation (narrative) [facility] XR HIP RT 2-3 VIEWS W PELVIS [...] Valdo Gonzalez MD on 01/18/2024 3:40 PM [facility] Radiology Study observation (narrative) [facility] XR Pelvis and Hip - right 2 ViewsOrdered By: Nathan Skinner on 01-18-2024 [facility] Work Phone: XR Pelvis and Hip - right 2 ViewsOrdered By: Valdo Gonzalez on 01-18-2024 [facility] Work Phone: APTTon 01-17-2024 aPTT Coag (PPP) [Time] 30 s [facility] ECG 12 leadon 01-17-2024 TRACEMASTERVUE [facility] Ferritinon 01-17-2024 Ferritin [Mass/Vol] 42 ng/mL 24 - 336 ng/mL [facility] Folateon 01-17-2024 Folate [Mass/Vol] 9.3 ng/mL 5.8 - PINF ng/mL [facility] Comment on above: NEW REFERENCE RANGE Glucose Glucometer (BldC) [M ass/Vol]on 01-17-2024 Glucose [Mass/Vol] 94 mg/dL 65 - 99 mg/dL [facility] Iron and TIBCon 01-17-2024 Interpretation and review of laboratory results Abnormal [facility] Iron [Mass/Vol] 74 ug/dL 50 - 212 ug/dL [facility] Comment on above: SPECIMEN HEMOLYZED, RESULTS INCREASED SLIGHTLY HEMOLYZED Iron binding capacity [Mass/Vol] 449 ug/dL High 250 - 425 ug/dL [facility] Iron saturation [Mass fraction] 16 Low [facility] No Panel Informationon 01-16 [facility] Parathyroid Hormone, intacto n 01-17-2024 Parathyrin.intact [Mass/Vol] 27 pg/mL 12 - 88 pg/mL [facility] Prealbuminon 01-17-2024 Prealbumin IA [Mass/Vol] 21 mg/dL 18 - 45 mg/dL [facility] Protime & INRon 01-17-2024 INR Coag (PPP) [Relative time] 1.0 {INR} [facility] PT Coag (PPP) [Time] 12.2 s [facility] Reticulocyteson 01-17-2024 Reticulocytes/100 RBC (Bld) 1.1 % 0.4 - 2.2 % [facility] Reticulocytes/100 RBC (Bld)o n 01-17-2024 [facility] Troponin I, High Sensitivity on 01-17-2024 Troponin I.cardiac High sensitivity method [Mass/Vol] 5 ng/L NINF - 21 ng/L [facility] Troponin I, High Sensitivity 1 Houron 01-17-2024 Troponin I.cardiac High sensitivity method [Mass/Vol] 5 ng/L [facility]L [facility] Troponin I.cardiac High sens itivity method [Mass/Vol]on 01-17-2024 [facility] Type and screen(includes ind irect yolanda)on 01-17-2024 ABO O [facility] Rh Nom (Bld) Positive [facility] Urinalysison 01-17-2024 Bilirubin Ql (U) Negative Negative^N egative [facility] Color (U) YELLOW YELLOW^YEL LOW [facility] Glucose (U) [Mass/Vol] Negative Negative^N egative mg/dL [facility] Hemoglobin Auto test strip Ql (U) Trace Abnormal Negative^N egative [facility] Interpretation and review of laboratory results Abnormal [facility] Ketones (U) [Mass/Vol] Negative Negative^N egative mg/dL [facility] Leukocyte esterase Auto test strip Ql (U) Negative Negative^N egative [facility] Mucus Ql (Urine sed) PRESENT Abnormal NONE^NONE [facility] Nitrite Auto test strip Ql (U) Negative Negative^N egative [facility] pH (U) 8.5 [pH] 5.0 - 8.5 [facility] Protein (U) [Mass/Vol] Trace Abnormal Negative^N egative mg/dL [facility] Comment on above: Not confirmed. Inter pret positive result with caution due to alkaline pH. Suggest quantitative Urine Protein be tested. RBC Auto (Urine sed) [#/Area] 7 High [facility] Specific gravity Refractometry automated (U) [Rel density] 1.018 1.003 - 1.035 [facility] Turbidity Ql (U) CLEAR CLEAR^LEANDRA R [facility] Urobilinogen Qn (U) NINF [facility] WBC Auto (Urine sed) [#/Area] 2 [facility] Vitamin B12on 01-17-2024 Cobalamin (Vitamin B12) [Mass/Vol] 242 pg/mL 180 - 914 pg/mL [facility] Vitamin D 25 hydroxyon 01-16 Vitamin D+Metabolites [Mass/Vol] 20.4 ng/mL Low 30 - 100 ng/mL [facility] Comment on above: Vitamin D status 25 [place] Vitamin D Deficiency <20 ng/mL Insufficiency 20-29 ng/mL Sufficiency 30-100 ng/mL Toxicity >100 ng/mL NOTE: A pediatric reference range has not been established by the production welder of this kit. The [place] [employer] recommends a Vitamin D level of = or >20ng/mL in infants and children. Vitamin D+Metabolites [Mass/ Vol]on 01-17-2024 Interpretation and review of laboratory results Abnormal [facility] XR Chest Single viewon 01-16 CHEST [...] Sylvester Collins MD on 01/17/2024 10:48 PM [facility] observation (narrative) [employer] XR Chest Single viewOrdered By: Sylvester Collins on 01-17-2024 [facility] Work Phone: XR Femur - right 2 Viewson 0 [...] Donavon Chen MD on 01/17/2024 11:42 AM [facility] Donavon Chen MD - 01/17/2024 History: Pain. [...] Donavon Chen MD on 01/17/2024 11:42 AM [facility] Study observation (narrative) [employer] XR Femur - right 2 ViewsOrde red By: Donavon Chen on 01-17-2024 [facility] Work Phone: Creatinine (Bld) [Mass/Vol]O rdered By: Guillermo Thornton on 08-21-2023 Creatinine [Mass/Vol] 0.8 mg/dL 0.6-1.3 [facility] Comment on above: ER/ESD physician is notified/shown all ISTAT results.Critical values may be confirmed by laboratory testing ifdeemed necessary by ER attending doctor. No Panel InformationOrdered By: Guillermo Thornton on 08-21-2023 Bedside Estimated GFR (eGFR) > 60.0 [facility] Alanine aminotransferase [En zymatic activity/volume] in Serum or PlasmaOrdered By: Guillermo Thornton on 04-24-2023 ALT [Catalytic activity/Vol] 9 U/L 7-52 [facility] Albumin [Mass/volume] in Ser um or Plasma by Bromocresol green (BCG) dye binding methoOrdered By: Guillermo Thornton on 04-24-2023 Albumin BCG dye [Mass/Vol] 4.5 g/dL 3.5-5.7 [facility] Alkaline phosphatase [Enzyma tic activity/volume] in Serum or PlasmaOrdered By: Guillermo Thornton on 04-24-2023 ALP [Catalytic activity/Vol] 46 U/L 34-104 [facility] Aspartate aminotransferase [ Enzymatic activity/volume] in Serum or PlasmaOrdered By: Guillermo Thornton on 04-24-2023 AST [Catalytic activity/Vol] 18 U/L 13-39 [facility] Bilirubin.direct [Mass/volum e] in Serum or PlasmaOrdered By: Guillermo Thornton on 04-24-2023 Bilirubin.direct [Mass/Vol] 0.10 mg/dL 0.03-0.18 [facility] Bilirubin.total [Mass/volume ] in Serum or PlasmaOrdered By: Guillermo Thornton on 04-24-2023 Bilirubin [Mass/Vol] 0.5 mg/dL 0.3-1.0 [facility] Diagnostic impression [Inter pretation] in Specimen NarrativeOrdered By: Guillermo Thornton on 04-24-2023 Diagnostic impression Mol[employer] Jf (Unsp spec) [Interp] See comment . [facility] Comment on above: Positive HCV antibod y screen without the presence of HCVRNA is consistent with a resolved past infection or a falsepositive HCV antibody. Consider repeat testing after onemonth.Performed at: - [facility] [address] [id number] Director: Aaron Amin PhD, Phone: [phone] at: - [facility] [address] [id number] Director: Hazel Rivera MD, Phone: [phone] Globulin Calc (S) [Mass/Vol] Ordered By: Guillermo Thornton on 04-24-2023 Globulin (S) [Mass/Vol] 2.5 g/dL [facility] Hepatitis C virus IgG Ab [Pr esence] in Serum or Plasma by ImmunoassayOrdered By: Guillermo Thornton on 04-24-2023 HCV IgG IA Ql Reactive Non Reactive [facility] No Panel InformationOrdered By: Guillermo Thornton on 04-24-2023 Hepatitis C RNA Qnt (PCR) Test Info See comment . [facility] Comment on above: The quantitative ran ge of this assay is 15 IU/mL to 100million IU/mL. Hepatitis C RNA Quantitative See comment [facility] Comment on above: HCV Not Detected Protein [Mass/volume] in Ser um or PlasmaOrdered By: Guillermo Thornton on 04-24-2023 Protein [Mass/Vol] 7.0 g/dL 6.4-8.9 [facility] Serum or plasma albumin/glob ulin mass ratioOrdered By: Guillremo Thornton on 04-24-2023 Albumin/Globulin [Mass ratio] 1.8 {ratio} [facility] Serum or plasma non-glucuron idated bilirubin measurement (mass/volume)Ordered By: Guillermo Thornton on 04-24-2023 Bilirubin.indirect [Mass/Vol] 0.4 mg/dL [facility] Alanine aminotransferase [En zymatic activity/volume] in Serum or PlasmaOrdered By: Guillermo Thornton on 03-21-2023 ALT [Catalytic activity/Vol] 10 U/L 7-52 [facility] Albumin [Mass/volume] in Ser um or Plasma by Bromocresol green (BCG) dye binding methoOrdered By: Guillermo Thornton on 03-21-2023 Albumin BCG dye [Mass/Vol] See comment 3.5-5.7 [facility] Comment on above: Specimen hemolyzed, redraw requested Alkaline phosphatase [Enzyma tic activity/volume] in Serum or PlasmaOrdered By: Guillermo Thornton on 03-21-2023 ALP [Catalytic activity/Vol] 44 U/L 34-104 [facility] Anisocytosis LM Ql (Bld)Orde red By: Guillermo Thornton on 03-21-2023 Anisocytosis Ql (Bld) Moderate Fir [facility] Aspartate aminotransferase [ Enzymatic activity/volume] in Serum or PlasmaOrdered By: Guillermo Thornton on 03-21-2023 AST [Catalytic activity/Vol] See comment 13-39 [facility] Comment on above: Specimen hemolyzed, redraw requested Basophils Auto (Bld) [#/Vol] Ordered By: Guillermo Thornton on 03-21-2023 Basophils (Bld) [#/Vol] 0.0 10*3/uL 0.0-0.2 [facility] Basophils/100 WBC Auto (Bld) Ordered By: Guillermo Thornton on 03-21-2023 Basophils/100 WBC (Bld) 0.8 % . [facility] Bilirubin.total [Mass/volume ] in Serum or PlasmaOrdered By: Guillermo Thornton on 03-21-2023 Bilirubin [Mass/Vol] 0.5 mg/dL 0.3-1.0 [facility] Calcium [Mass/volume] in Ser um or PlasmaOrdered By: Guillermo Thornton on 03-21-2023 Calcium [Mass/Vol] 9.5 mg/dL 8.6-10.3 [facility] Carbon dioxide, total [Moles /volume] in Serum or PlasmaOrdered By: Guillermo Thornton on 03-21-2023 CO2 [Moles/Vol] 25.0 mmol/L 21.0-31.0 [facility] Chloride [Moles/volume] in S lillian or PlasmaOrdered By: Guillermo Thornton on 03-21-2023 Chloride [Moles/Vol] 103 mmol/L 98-107 [facility] Creatinine [Mass/volume] in Serum or PlasmaOrdered By: Guillermo Thornton on 03-21-2023 Creatinine [Mass/Vol] 0.84 mg/dL 0.70-1.30 [facility] Eosinophils Auto (Bld) [#/Vo l]Ordered By: Guillermo Thornton on 03-21-2023 Eosinophils (Bld) [#/Vol] 0.0 10*3/uL 0.0-0.45 [facility] Eosinophils/100 WBC Auto (Bl d)Ordered By: Guillermo Thornton on 03-21-2023 Eosinophils/100 WBC (Bld) 0.1 % . [facility] Erythrocyte distribution wid th Auto (RBC) [Ratio]Ordered By: uGillermo Thornton on 03-21-2023 Erythrocyte distribution width (RBC) [Ratio] 16.2 % 12.0-14.8 [facility] Globulin Calc (S) [Mass/Vol] Ordered By: Guillermo Thornton on 03-21-2023 Globulin (S) [Mass/Vol] TNP [facility] Comment on above: Test not performed Glucose Glucometer (BldC) [M ass/Vol]Ordered By: Guillermo Thornton on 03-21-2023 Glucose [Mass/Vol] 142 mg/dL [facility] Comment on above: Random Glucose Refer ence Range is dependent on time and content of last meal. Glucose of more than 200 mg/dL in a nonstressed, ambulatory subject supports the diagnosis of Diabetes Mellitus. Glucose [Mass/volume] in Ser um or PlasmaOrdered By: Guillermo Thornton on 03-21-2023 Glucose [Mass/Vol] 127 mg/dL 70-100 [facility] Comment on above: ADA recommended refe rence rangeRandom Glucose Reference Range is dependent on time and content of last meal. Glucose of more than 200 mg/dL in a nonstressed, ambulatory subject supports the diagnosis of Diabetes Mellitus. Hematocrit Auto (Bld) [Volum e fraction]Ordered By: Guillermo Thornton on 03-21-2023 Hematocrit (Bld) [Volume fraction] 43.2 % 38.8-50.0 [facility] Hemoglobin [Mass/volume] in BloodOrdered By: Guillermo Thornton on 03-21-2023 Hemoglobin (Bld) [Mass/Vol] 14.4 g/dL 13.0-17.0 [facility] Hepatitis C virus RNA [log u nits/volume] (viral load) in Serum or Plasma by HAI withOrdered By: Guillermo Thornton on 03-21-2023 HCV RNA HAI+probe [Log units/Vol] Not detected . [facility] INR in Platelet poor plasma by Coagulation assayOrdered By: Guillermo Thornton on 03-21-2023 INR Coag (PPP) [Relative time] 1.0 {INR} [facility] Comment on above: INR Therapeutic Rang [...] PT Coag (PPP) [Time] 11.8 s 9.0-12.9 [facility] Leukocytes [#/volume] correc joseluis for nucleated erythrocytes in Blood by Automated counOrdered By: Guillermo Thornton on 03-21-2023 WBC corrected for nucl RBC Auto (Bld) [#/Vol] 5.9 10*3/uL 4.1-10.5 [facility] Lymphocytes Auto (Bld) [#/Vo l]Ordered By: Guillermo Thornton on 03-21-2023 Lymphocytes (Bld) [#/Vol] 1.6 10*3/uL 1.00-4.8 [facility] Lymphocytes/100 WBC Auto (Bl d)Ordered By: Guillermo Thornton on 03-21-2023 Lymphocytes/100 WBC (Bld) 27.3 % . [facility] MCH Auto (RBC) [Entitic mass ]Ordered By: Guillermo Thornton on 03-21-2023 MCH (RBC) [Entitic mass] 27.8 pg 27.5-35.2 [facility] MCHC Auto (RBC) [Mass/Vol]Or dered By: Guillermo Thornton on 03-21-2023 MCHC (RBC) [Mass/Vol] 33.2 g/dL 32.5-35.6 [facility] MCV Auto (RBC) [Entitic vol] Ordered By: Guillermo Thornton on 03-21-2023 MCV (RBC) [Entitic vol] 83.8 fL 83.5-101 [facility] Microcytes LM Ql (Bld)Ordere d By: Guillermo Thornton on 03-21-2023 Microcytes Ql (Bld) Moderate [facility] Monocytes Auto (Bld) [#/Vol] Ordered By: Guillermo Thornton on 03-21-2023 Monocytes (Bld) [#/Vol] 0.5 10*3/uL 0.0-0.8 [facility] Monocytes/100 WBC Auto (Bld) Ordered By: Guillermo Thornton on 03-21-2023 Monocytes/100 WBC (Bld) 7.9 % . [facility] Neutrophils Auto (Bld) [#/Vo l]Ordered By: Guillermo Thornton on 03-21-2023 Neutrophils (Bld) [#/Vol] 3.8 10*3/uL 1.8-7.7 [facility] Neutrophils/100 WBC Auto (Bl d)Ordered By: Guillermo Thornton on 03-21-2023 Neutrophils/100 WBC (Bld) 63.9 % . [facility] No Panel InformationOrdered By: Guillermo Thornton on 03-21-2023 Estimated GFR (CKD-EPI) > 60.0 mL/Min [facility] Hepatitis C RNA (PCR) Interpret See comment . [facility] Comment on above: The quantitative ran ge of this assay is 15 IU/mL to 100million IU/mL.Performed at: [facility] [id number] Director: Hazel Rivera MD, Phone: [phone] Pharmacy Creatinine Clearance (Chem 133.96 [facility] Bedside Glucose Comment Glu2: cleaned meter [facility] Nucleated erythrocytes [Pres ence] in Blood by Automated countOrdered By: Guillermo Thornton on 03-21-2023 Nucleated RBC Auto Ql (Bld) 0.2 /100{WBC} 0-0.5 [facility] Platelet adequacy [Presence] in Blood by Light microscopyOrdered By: Guillermo Thornton on 03-21-2023 Platelets LM Ql (Bld) Decreased Normal [facility] Platelet mean volume Auto (B ld) [Entitic vol]Ordered By: Guillermo Thornton on 03-21-2023 Platelet mean volume (Bld) [Entitic vol] 11.0 fL 6.6-10.1 [facility] Platelet morphology finding [Identifier] in BloodOrdered By: Guillermo Thornton on 03-21-2023 Platelet morphology finding Nom (Bld) N/A [facility] Platelets Auto (Bld) [#/Vol] Ordered By: Guillermo Thornton on 03-21-2023 Platelets (Bld) [#/Vol] 94 10*3/uL 150-450 [facility] Platelets Large [Presence] i n Blood by Light microscopyOrdered By: Guillermo Thornton on 03-21-2023 Platelets Large LM Ql (Bld) Slight [facility] Potassium [Moles/volume] in Serum or PlasmaOrdered By: Guillermo Thornton on 03-21-2023 Potassium [Moles/Vol] See comment 3.5-5.1 [facility] Comment on above: Specimen hemolyzed, redraw requested Protein [Mass/volume] in Ser um or PlasmaOrdered By: Guillermo Thornton on 03-21-2023 Protein [Mass/Vol] See comment 6.4-8.9 [facility] Comment on above: Specimen hemolyzed, redraw requested RBC Auto (Bld) [#/Vol]Ordere d By: Guillermo Thornton on 03-21-2023 RBC (Bld) [#/Vol] 5.16 10*6/uL 3.90-5.60 [facility] RBC morphologyOrdered By: Diana Thornton on 03-21-2023 RBC morphology finding Nom (Bld) N/A [facility] Serum or plasma albumin/glob ulin mass ratioOrdered By: Guillermo Thornton on 03-21-2023 Albumin/Globulin [Mass ratio] TNP [facility] Comment on above: Test not performed Serum or plasma [id number] protein tumor marker measurement (mass/volume)Ordered By: Guillermo Thornton on 03-21-2023 AFP.tumor marker [Mass/Vol] 5.2 ng/mL 0.0-8.4 [facility] Comment on above: [facility] [employer] El ectrochemiluminescence Immunoassay(ECLIA)Values obtained with different assay methods or kits cannotbe used interchangeably. Results cannot be interpreted asabsolute evidence of the presence or absence of malignantdisease.This test is not interpretable in females.Performed at: [facility] [id number] [place], [place] [id number] Director: Aaron Amin PhD, Phone: [phone] Serum or plasma anion gap de terminationOrdered By: Guillermo Thornton on 03-21-2023 Anion gap [Moles/Vol] TNP [facility] Comment on above: Test not performed Sodium [Moles/volume] in Ser um or PlasmaOrdered By: Guillermo Thornton on 03-21-2023 Sodium [Moles/Vol] See comment 136-145 [facility] Comment on above: Specimen hemolyzed, redraw requested Urea nitrogen [Mass/volume] in Serum or PlasmaOrdered By: Guillermo Thornton on 03-21-2023 Urea nitrogen [Mass/Vol] 14 mg/dL 03-07 [facility] WBC Auto (Bld) [#/Vol]Ordere d By: Guillermo Thornton on 03-21-2023 WBC (Bld) [#/Vol] 5.9 10*3/uL 4.1-10.5 [facility] Lab - Reference Lab Resultso n 02-05-2021 Lab - Reference Lab Results [id number] TIFF Normal [facility] Patient Handouton 02-04-2021 Patient Handout Custom [facility] [address] [place] [address], [address], [place], [place] CERTIFIED February 04, 2021 Ruth Smith [address] [place]. [address] Dear Ruth, A physician-patient relationship is established when the physician provides service to a person to address medical needs. Once a physician-patient relationship is established, a person remains a patient until the relationship is terminated. Individuals receiving Pain Management Service may be involuntarily terminated for an inability or unwillingness to comply with their plan of treatment or other policies of the [facility] Department. This Letter is [...] records to them. Sincerely, Stefan Nash MD [facility] Progress Note - Nurseon 01-13 Progress Note - Nurse patient is dischar ged from Pain Mgmt per Dr. Nash on 02/04/2021 d/t UDS results. Please see chart [Electronically Signed on: 02/04/2021 09:38 EDT] Mabel Treviño [Verified on: 02/04/2021 09:38 EDT] Mabel Treviño [facility] Coding Summaryon 01-29-2021 Coding Summary HTMLBase 64 AmkxxlnjONk5xEj+PGhlYWQ+ BE5FZOIyZ51eqMDhrY8DR8rN JU8ADDTGHTAINA8PLQ9wiNS3 VIguH1YyjpBg VocxnEXkYG44ZSz8XFU2iZvh NYycoD0xdQTtU8r4ZvJhOH02 aL63ZWsmDOJyOqC6JdRnkjwp bWFy N9crHyZkaJUyGvp+PHRhYmxl IHdpZHRoPScxMDAlJyBzdHls FI9wLo6wLOBcKGRfkCnulUQj OiBj j1ysMMWzWRieID2zcPisI9Cw qQM4NRLhm5q9Co34uUN+PHRk SRX5lFloFUpow657IsAvi2by IDM3 rXKbDGzbHIN6S26py1J7TVIy NRVvOYW4vLV3zW6ivZmqkwqu I7GjvJMiOlJ5FFJ8uKQjyQ1x bGln ryinxZ0fAlw+B41BVZ4HEOOY JX6UCqj6P4EmJvcdjEV+PC90 BADkFK30iHMzeTQps2aqzKx3 JzEw OEYtLHN3rJfoCEfml4QzZKKg U38ewEOgf2F7JXXlnCkmcPXb MtLwsPI3iR1yARjdebsuy5vf dzsn Wjuaj1oknx26cW15E93oHByw DUNeZBO9VRTkFJCqnEuhoh8s cC5rBy9+ROhka5pbc8grlXi7 IjIw IUHmznLgaFveNXY6h9ErVj41 B4XvcOqtc3GaNvy6tm99iYPn k1J5kFR4ADxhCJNglD3hCPmu ZnQ6 XVPcXtExnX60uNOyFPwqCz2n xXblaAxcLE4hWIDohulkMKPt cW5yEUYtcBKzkAwnYF8dWCQo bjtm q669NyErKWA9PBKkzIVcL2Wn nS7fHyKgCJSoNZKwM1WxiGTi ZBvrZ906BSfmNrK9RKXxfcSu Y2Fs KKDyvMcoQzD6d2I1Jm4If9Kc dspsFXZ4LNraRCP7XzX7DeZg AiD4V5AiZqv5ZPRjlNsvRA2t J3Bh JTVguadnnplpeCV3DOMuJEPa aL72qLLeHJxkXx5lz2M3w539 LMFfQBFedM17Ta8jxWqqNLGz dCBU uN0glbhbr5itoqcoIjFnRVDq GAh8HSa1JCCnnEnxXlKzUCH1 ZzX5LJZ6pGVpoD0liEtpegvh dG9w Oyc+B30rmD9yDDF7GGI4bhhd JNLqhwViPZ60PT19X4QeOkkd dGFibGU+FYHltqOdlQzyRM8k YmFj s4tbq7ZkCNubM9KyOCIlLQme Xsj8EDYcIMU1tFE0mY6aFIHo YYujm7C5sDH1F3SlmyNqbf9u b2xs ETIySFpwJ86rnZVfv6S8AVMx aTQ0BSDfhLlcVcLhpC47Pso+ IQJsjOear6DfScpup6urh8tr dGg9 LmHyWVNzlyUcrWhoQIE4y0Eu Fj65D89eIPvxZXQzZNEaXSIy REShiNgmuj5baM2sJj0+PGNv bCB3 kTD0xK8yHNPyDtZ6ERoaM392 DcRgzKTaBovuv6odd3ycwTh6 HoVyLPJhliQfcMqaVUC1f6Hu Lz48 N70fMVrfRFEqUUTwFUDpNJVg oNswed8aeI5uYc1+TX8rq2jw mu95cK74sOR+EELgEJI7qTme PSdw RLIwrX8lRJozGrW6WLOcKkEp xL39yQMbRDwnHi2toGnxbDlz HC8uRAKmszens962PzXro6pe IDEw sRQxDDdjOVR8M36ir0C0GJNx MIDjRAK0jDH5mW9wcQkatgea bGVmdDsgdmVydGljYWwtYWxp Z246 IHRvcDsnPlBhdGllbnQgTmFt FCw6G4NnLfv6ZFMbiPrhDF2t qSSgQMneLa3azKfgpQsbKY6b NTBp yozzl444ZbBap7sfJQVmxVKg HLpzFFZ1V98jk3V8DTQdKUJd MRQ6pSH5aM0yyJswwrnkvLAe dDsg zxGvgMqxDOraRZpfR887RIYz rMvnYlNwxoCbBNFqqSN5VQ70 BT00nDFby6W0gEB4Z0CgBAPh bmct pfylzHY9GYMfQZEdiI82Ci5a kFgcMw6fUJXyPVI3IGIrkIAo M0HphF0cDuJcCZXfKFQlR3Et eHQt JWwpD286YGvwBfV1JENlzsFh F9ZmCHJkxSfjKlJ2s3I6Sr5B K0K7NO45KM72dIWsf7D3hDT5 J3Bh FUWirwwmfbypkRN8TSSuNGEl eW51Bv3cvEipPk3uORNsZQL3 YHBqkWAzR3ZfnB5lRaFhNQTd MDAw K9VnlWPmYOezJ605TFolJoQ7 INIjblZqB2LbTYSbgKfiMzE0 c6O6Hl1UNMl0PE75JK46zDNa c3R5 kNY2N1TdWHPpenpbymjbgOT9 OAAwQGWzgF20Ok4tcDtjOz7k IHBnPEV5AKPtmWPlU6IjdG5f OiAj LPGjZIXfF7WyuSJhSHujV499 AVamLyG6QDSrmeHgB1XgLRXy nPhgDyH1t2S8La2BDQPqQE24 IFR5 jMO5KD73DX93Q2EmBrhzdZKn bGU+PHRhYmxlIHdpZHRoPScx ZSFiHiSsjXoeAK8eQy2xQPAd LWNv aZfmzQXeDqTsr8jqBZYqXYce RM5ktZmdE7QbqLT3EYVvx5y2 Kq33N05uL2RsuEL+PGNvbCB3 aWR0 qK7zGxCwVjR4NWsaD625YeNt cSUjDdnve8led4jwhJl6KbU0 VIHgxeRdiHooHCK3m4QnDe07 Y29s IHdpZHRoPSIxNSUiIHZhbGln pz6zdE1tBc5+NBSqvTQ8sBW3 hX7uBlRiPdG9XGbtB213YaCu cCIv Igquf1unv6awiUp9GuXcXMNl trSrnMsaPJS9p9SzPz60M2Xj xPfvl0UyErz2yp08vJCkr2D3 bGU9 V0OcVEKrjgwrlAIsxHmnCS2w XISvmhqlYKWazC5yZSCgO6s8 ZeVzEeG6GQikU1GnkhZ6HJXe cHQg QPynHRJ7K98wa0C3XLKfIBMg CLQ7gOZ9dH3laWflklpweVXa uOgwltDjdFxvPVvyPVtlN479 IHRv wXeeMBOxiU1uTRJewWRlhHej ES7vXHMwhnkqTxzSDwDSWNUM I26QFFZAECGKNIYDFTy7J6Fm Pjx0 KELcrFzrVA7qlBMdQMznNi0o nQjlbUwlWG5dSZXdjnrgOYGu cW8uVJIpdAIezDiaHF9rSNMz bjtm i655UrEuVJH3GZNdxKAkA5Tg bL2iHhVlRLXmPSNtB1SviLVs SDkcB935XQoiFrC7MYIeusOc Y2Fs KRCumGphDnK2o6Q4Ko3xNE2y Xn9rSGQ0TU02KJ13gTGxm8H9 yVI8I5AuWRJakigyszcobST9 IDAu JUYvzP55cCZnTVdwTj6tq7K2 a072NUKmZCFucO26Is6tnVtf OSFzyNPGtS3aqweku6emknhl IzAw GIVkWPd2BVj7RAXheEmzUtKv CMW2BsE9ZKG6qIEsjU4srLfn giucdO9qGac+NTIgWWVhcnM8 L3Rk Tmm4TRMmcYieHH2adPUyWNfo Pl6adCnukKgwVW0jBQQdbrdw FDUunC7dDSShyEEnzDjrDB0d NTBp qffiu638ZwEmYLJ9DPKxmCUr K7XkpC5hJnPwSUNsOWGiT3Zn sTZdNPhxS928IEetVnW1ANAc cnRp R8WcERTcqNynYkR6h7N2Vs8R SYkUVN11VT50eTSst4R8cIW2 D9CdIHMhhctctogopBV0HJCe MDUw eE25lPLlFFcfEx1mv0U0c100 YXEgDXKimG07Sv9iaCnoDCKg mORQyV9rmnsth9ucalppKiAe MDAw MNw6GFa4EQEvaIkkWbMjDIZ7 AbT0ZYS8eEVuuZ8dzHchchht xK1yBdu+R6H3I6NdHovqkNE+ PC90 YFBbFM64pXBeuVTrz6tztTp1 VjGvHDZlIXV2bTweLIerb5Wg TGLtS44zaSUbq7Z8DSKanQey cHNl RjJfnED2iQ3nKHpyfaisx9bv gsqeLtoxw2dyrt58zT51T52a IHdpZHRoPSIzMCUiIHZhbGln bj0i iX2uGh2+PULngSB8mBB7sT4h LrGkAfQ7HZbqQ990TdGbcYTc Qlwfw6cxh2okuMt7ViYqKVRo dmFs oAsnWTT3r2XbAj08B87iPRwo PNKtFTLdNJDjHRRsaNajli2b mD9uNa0+OZ6uz8wfjy93bY77 dHI+ IREsXSA9oVdyIMazJZLcwI9n KExxHiJ5WPVjWmLjsD25rXQr GUgxUw3noQladFraKH1iVKIz bjtm o336ZvOti9zxSNHigPKjXIng FKG2T17ft9D9ONRySTUuQHU7 fXB4oI5xcVzlpkrphPBybSlp dmVy yVntLVsbBYciW687JOYuiSqb OiOqdATiG5ktjaOAJK5cHezm dGQ+PEQyFKB7eUliDRgdKKNq aW5n SQKvK4i1XdHyOwZ3TVdpB7Jh ivD7QTRrhJPhQJRntXJLmF9h zdppp8mdvcfwBgJzMXIyQKg7 ZXh0 ZZLllYzhFxVaLWG9ZkR4FUO4 cJZduC1yeZjhckfjlP8cDzz+ RklOOjwvdGQ+UENjJUG7cTdu PSdw NICaaB2qPWPsN5h8EzKrQgP2 PHbmF6GkxnA3BKHegMCgHNGl eWCWsE3fopkyx4eeagkaWjYb MDAw MVk5LJi5HUEkiUhwJhOuTIZ2 HdY7NNM3vUOdnG2rpLjmciml vK0rPbt+TVJOOjwvdGQ+PHRk IHN0 bNyyUQolKGWviV9ePSWcV1i4 BfKbRgJ0GMwpU0BehwD2LVZq xADfBXXgwSYVbB1rgtnan6tt cjog HpYzJXWsBFc4ZCm1MOGkyEer BrTxOYQ4TaN9RAI1tJJkeK7b dLlhbxrmkO1aLcc+QCV7DGQ4 PC90 PS45Q0RjWviptIUcxAE+PHRh YmxlIHdpZHRoPScxMDAlJyBz hJakVO7yMz3dLPRqGAQooVpg cHNl OiB (more content not included)... [facility] Progress Note - Provideron 0 01-29-2021 Progress Note - Provider [id number]#1.00OTG TIFF [facility] Progress Note - Nurseon - Progress Note - Nurse Patient called in today for refill of oxycodone. Refill sent to Nancy Johnson. Hardik reviewed [Electronically Signed on: 12/22/2020 10:17 EDT] Azul Espitia [Verified on: 12/22/2020 10:17 EDT] Nupur Azul M [facility] Progress Note - Nurseon - Progress Note - Nurse PATIENT CALLED IN REFILL REQUEST. OARRS WAS REVIEWED. PATIENT IS COMPLIANT. REFILL REQUEST WAS SENT TO NANCY JOHNSON FOR HER APPROVAL. FOLLOW UP IS IN PROGRESS. [Electronically Signed on: 11/24/2020 08:47 EDT] Karolina Walker [Verified on: 11/24/2020 08:47 EDT] Karolina Walker [facility] Lab - Reference Lab Resultso n 11-19-2020 Lab - Reference Lab Results [id number] TIFF [facility] COVID-19 SOFIAon 10-28-2020 COVID-19 ROMA Negative Negative [facility] Comment on above: This is a duplicate Roma SARS Antigen (SHANELL) result to be used for statistical tracking purpose only. Otheron 10-28-2020 SARS Antigen (LFIA) [facility] Progress Note - Nurseon 10-12 Progress Note - Nurse PATIENT CALLED IN REFILL REQUEST. OARRS WAS REVIEWED. PATIENT IS COMPLIANT. REFILL REQUEST WAS SENT TO NANCY JOHNSON FOR HER APPROVAL. FOLLOW UP IS IN PROGRESS. [Electronically Signed on: 10/27/2020 11:51 EDT] Karolina Walker [Verified on: 10/27/2020 11:51 EDT] [facility] Summary[facility] 10-22-2020 Coding Summary HTMLBase 64 PdzrtazlTKc3iJl+PGhlYWQ+ CI4ILPDxD28xpXPkxY2NL8vM FC2IMOLQAQJOBC5IRR6yuHB7 GClpT5PipyZo WgpmxNTaKT84SQk0HGM5sXcg TKodmJ0urOFuW8i0BjUeYG63 hE98IThqYVMuMxL8AyOcsxod bWFy Y0rsEcLcyDVnLmn+PHRhYmxl IHdpZHRoPScxMDAlJyBzdHls JR4rHn5zAIBkPRNpeSefuWLd OiBj r9bmHEVzHBbyXV4ifPeaP7Rx pCZ9WLFjo0o1Zn84uZI+PHRk OAN5nThkAAoos571CnUyp8rg IDM3 mQYiGMxuHPI7V65ut3U6EOQr ZHBnWJP3aCM8tJ0oyEvdxjtv U5RfxEBuZgG1NAL4oNLjuX1h bGln xknmoL2xSfx+M42PPY9XSWUP ML7RTpn5U6ZyOghhuUG+PC90 PRQyEC24uTTtgMDih0amrQa4 JzEw YKClQTN8rSkqVUeks7BxYPUj F62axEYpi1S1LZWlgRwgcWSl IsQtmZW4dD7dYAwmhbcyr6ko dzsn Deoma6abdv71iW59B88lAKei HTHtMOE3RMJuNOYuiBlirj3q eC4fAm5+GKyqu9ace6lluZk2 IjIw YJAfqxSpjXxvVSU9w7QnXl71 P3SikNlgh1VsUzw5bw11fNUf a0I9wZM8WYgnXNXzqY2cTOkr ZnQ6 RJSmPkOgjI03aEQrNIfiMb6o aYwpvVmyUP1sFBAifbqtBQGc kY1aJHNywSCvsWlnTI1qNPFm bjtm d729QqCuEFV2BXVooMFbP6Sw gC8pSxOlGGMfRGYmD5OkaCSv CJruE172RQmpQjD5VWHdrtRq Y2Fs UAClzLzuHvT9w4R7Us2Ub6Ax tjbbIEJ3SLxyBSCzUvOmSuKu TwK6V0LaGlh8SAChoMapBI6j J3Bh LBAzhnuchezltBB8HMAfXNEs iR39mETaDSotRk7ih3L1v671 BFMxGGHhsY54Bl3epIifZHFp dCBU gR7ugoujl5bywwlfNzOqBKAd KRy0WYt6GGYoeMaqHoDaZXE5 RuA2UKN3gGPmdT8kdGbczqmt dG9w Oyc+C25etO3cEEA1UXM6sinh WZEkefDsWY56TY82N2HmElyj dGFibGU+KARlqyJmmKeeMI8m YmFj a5ytv6EpUOycR5EtONTuAKlh Dcq1VIFpJJM3cCU7iO5jEPQm KDulg3G2aGB4P6CwefUofw7o b2xs ACQwLDptH47yyHRws9I3GOOo bTD5LBVrgOktKbCxeF97Ihk+ PJNuiEiht4SlXamto0nsr9tc dGg9 ZeTzVFSnadPtdWnrGIG1f0Dg Vt17I97iUYnsTSDhMSJtZELy YPDmdJhjjp1opM9sMf0+PGNv bCB3 vBH2xD5rMVUmMcK2EKuyN214 KvOajQLiZlqdo3vdg2lrfKl1 BnYbSWRecjOjvWptZLP0s6Ao Lz48 B25lPDjlUVDqLRUdAERfTBYa eLpoqm8xbD2hPb0+RK6xt5vv rb99eA17bCM+ULFpTOE3xVfz PSdw XTInmO2xQAgfYeF5ZRLoNlJt fP15iGCfQYzdQh7hwHqwsHmg CA9lADIsmivyp250PyZlq9fv IDEw eMAjSRzrXJY0W69vd9B7WPMj OUZqUQN0lPU5fB4teFdxlpnz bGVmdDsgdmVydGljYWwtYWxp Z246 IHRvcDsnPlBhdGllbnQgTmFt XZo5P2HyYwy9YQGisCxoGC5c vAIeBCsvWx0rqAutgSsjLD9w NTBp napko749JtHxr8fpMENwyKCd ROifTXN3U24ei0X6QUAbSXYw LXL9xJG4iA0iaKfazmndtKMo dDsg fxTsxJeoDFboYJtzW051NKFw lRshCvKrloMdLLAemAA6XQ58 YL03aIXpr2M4sSB8L4WjZRQd bmct cptnjBU9ECIfQKNypH94Hb0g gOieHu6xEIIcMVU2HFKdxTRa G3KkwL3bCxZyBIImWYZeB8Bj eHQt KOoiV772AIjbNeQ3IAWabuNv V7HmBELgdNdpFpP6x3Y4Np4H V5H5XT27SW76yVJuy7G4tKV8 J3Bh JRJtdmwkmanaeDX5UWOrZNHm vG23Ox7avFdbBx0wITYaCNE3 PGXkgEDbI3SboX8aBqLnWYLe MDAw S1LstIBkUHwhF181FEdwNaX5 WRPsasHjS4AcUWWcoSudBaA7 s4D5By8FXFd5EK51RH81vTWd c3R5 dOF9G8PeIKQzofoowgthrMZ6 TNScJSUfsD53Cq9jfXobDv4w TCRfPCC1AHPsfEOlN3YhqL8b OiAj CIPjLRKiF7VpjBUgLYjwP884 MBprGbK1TNHckmRfF6GyVHTo eTfoJfU1d4D4Xk4ZXNTxNZ17 IFR5 aWC7EK70IM16Z1AnKmblpNXq bGU+PHRhYmxlIHdpZHRoPScx JVUpYyMrkCccVN4eFe0nDRGr LWNv rFyrjSGaOjJxd4qbMAXdGBno HX8kdOarZ3TvdRH9FXAsf2c6 Mc07Y22bQ1YwlAA+PGNvbCB3 aWR0 zL8kTpBaJcK8REzzQ625FqEb uOVwPikxz4gbn1vsmXq1FyS5 BSOiotUqyBplQFX2u9JnQb90 Y29s IHdpZHRoPSIxNSUiIHZhbGln qr0flU7sEl8+OLZzrYX1dDP4 oD2oLxGbWjG4RDmsK246TbBw cCIv Xcrmc9ukz2jvtFv1GfRwHXVe zjEasRjrIWH3t5AiHn96G2Zg pLzja8YzAro2lo13wAUrk3F7 bGU9 K2KoQYDrzbuvfYBklScfDJ6g NEUlhxxbZQZorM8jGGIuL2x0 EdUmEtF5DCzwM7YtitF9EMTb cHQg AHqcHIX9O81ff1A2YFGoRRXc TRO0rNO4sF9gmNngldfxrDJl yBdttsIxbGinFEayQWcdD456 IHRv yQtbMIFjfG5aGTQkoLXihIbx YQ4fODYmxcanDsvLRsQBBFNF H27ZNAKLSMOUMEHRAVx8L8Ux Pjx0 IBYaaOpoBO7fgFAlWKtmYe1y aRvfnAyxCD0dSFWcpgpzOHQt hF9eRMHkrPFgrUumVK7tXUZh bjtm o763RtQiIGG3AFBaoEUbM6Cw vR7iNcMsXPJlCREcP7ImeZQz TYqjL011RRqgCpS4TXFrhaRk Y2Fs MEEydQhaObZ4w8J7Ns7aGX9x Gl3qGLU4MJ53LP38iFGko8I5 gKN2F5DjOPGpylyqwbukdMC6 IDAu UWDteA43eCSvZCmaHa9ou3I7 b616WMNvNMFewD35Ef0ouNaj KKSzbONAkN6xghoay7noehll IzAw LNLoTRn9GZv9IIVwqXpeAuIe HPL4UxA1BXT4uCHlvI2ctBgp pbynkQ9oJdk+NTIgWWVhcnM8 L3Rk Xoe5VMMoaQzfGO2hgMPqLGdw Tg6lgDnpzGpzOW1wMVTspdtp XLZtaD5tYQQznYSonYsxKM3w NTBp elooj396NvMwHGL0SXAiePOm I6LmsP3lJzAhFJXsYUVvN5Cu gXFcLCpuL528SHhdEaI6TWKl cnRp G8AgPOAxrWttMpL0w8V2Gu7O TLkBZN25QD42cWVty7K7gRZ1 U8WvQHVzewfqyqtfqJL8VKVa MDUw mU55fDOjXChhLl6iy9H4b985 XNLhVRPosI81Gn9zmKpaJXHj jZGNrC8jvjzyd1bdcmylZsDc MDAw HJj8OIw0SYVrgHzrHgYiXFU9 ZvM1SSD2gNOziZ3lgEnewjul eD6vRnk+T7G5H6NbMjdjdAB+ PC90 SQIkHZ17lGOymNGeb6uooMa3 InGeOJFcAXQ6qSijPBvhi4Nw YHOeU11xfXEkr8X0JUShgGsb cHNl FcOmwUZ0rA2kUXvuksoqp9vg mbjbYmmsx7bhay25jC91T40n IHdpZHRoPSIzMCUiIHZhbGln bj0i iP9eHc1+WZViuIF4bKJ8zT3m KsYxWaE1SPpzV405KaXvpONg Ukehh2suz1ebjSw9RuPcZVDl dmFs bLdfAIT2m8ZzXq05G95gSCxl SXFaTXIiHFJmHQWveVkulz4l mG4uKk3+CT7xo9pcpu18jR14 dHI+ NGLtBLW7rSszLYebHHDttO3e RGxnQwV1KENtPtHrsS01aJUm KFzbQl1ghFnusPyoOZ4kPOYf bjtm u942PjNvs4teBHNumKArOPco GQP2T64gg8B8LOHjSYMsXUQ2 rDU4zS2xaCborqmlnURcmYij dmVy qOggZVnzKUyrR156LDSaeQxy IkSkfVXzM8cdxvOYHX2yUyys dGQ+IWKlXYN9dPmmCCkxITNy aW5n BNBtV9c1QmKtRlT6DPcyA4Ax xwK0GASdmPGeFJLgiFTOaR4s mstiy5jwqgvmEfDqNGScAGu0 ZXh0 WAHejRjcCqXkHZR6EhK6OZV5 pDYsbE1ehOorkcfagT7yQmf+ RklOOjwvdGQ+RREmVOA8bQnc PSdw XOGdrS7bEPSpA1f8UsRhAyA7 CRdrW8CjxfO7XYAuaLTeYYFo fSONmA7wbssnn6odcqglErYe MDAw BTr0YWu9UILqmXrlCwViLWI6 IlT1YZL0mLFkxQ4rvTqgimcz tN0cLxs+TVJOOjwvdGQ+PHRk IHN0 kIxhTMxqSYNreH1fBMZaY8e6 ZbBlGkB0QCcsE9LwpmW6BNCy lKVuPSDgrVQIuI3txbfaa5to cjog HjFkALPeNPs1CPy3DYZwdOgz HxErAMU5SuL6TJZ2zBJchS6f fEhcnpcemB2kQmp+NCY2NLF8 PC90 UQ77O1GpUoljdIJieQN+PHRh YmxlIHdpZHRoPScxMDAlJyBz oHgcUN3lQg3fBUIbUORfiOss cHNl OiB (more content not included)... [facility] Controlled Substances Agreem entson 10-22-2020 Controlled Substances Agreements [id number]#1.00OTG TIFF [facility] Controlled Substances Agreements [id number]#1.00OTG TIFF [facility] Progress Note - Provideron 0 10-22-2020 Progress Note - Provider [id number]#1.00OTG TIFF [facility] Progress Note - Nurseon 02- Progress Note - Nurse Patient called requesting a refill on Percocet. OARRS is reviewed. Patient is compliant. Next appointment is scheduled. Order is sent to Nancy Johnson ENGINEERING PROJECT MANAGER for approval and signature. [Electronically Signed on: 09/29/2020 14:18 EST] Mabel Treviño [Verified on: 09/29/2020 14:18 EST] Mabel Treviño [facility] Progress Note - Nurseon 12-0 Progress Note - Nurse patient called in refill request for oxycodone and trazodone. OARRS was reviewed. Patient is compliant. Refill request has been sent to Nancy Johnson for her approval. Follow up is in progress. [Electronically Signed on: 07/21/2020 13:41 EST] Karolina Walker [Verified on: 07/21/2020 13:41 EST] Karolina Walker [facility] Coding Summaryon 06-30-2020 Coding Summary CODING DATE: 020 [facility] STATUS: Home PAYOR: Medicare ADMIT DX: [...] Chanelle Gillis Date Saved: 06/30/2020 12:44 pm [facility] Progress Note - Provideron 1 08-26-2019 Progress Note - Provider [id number]#1.00OTG TIFF [facility] Progress Note - Nurseon 05-15 Progress Note - Nurse pt calls for a ref ill on oxycodone. oarrs is reviewed and patient is complaint. order is sent to nancy johnson NP for approval. [Electronically Signed on: 06/02/2020 10:26 EDT] Mabel Treviño [Verified on: 06/02/2020 10:26 EDT] Mabel Treviño Normal [facility] COVID-19 PCRon 05-15-2020 SARS-CoV-2, HAI Not Detected Normal Not Detected [facility] Comment on above: Result Comment: This nucleic acid amplification test was developed and its performance characteristics determined by [employer]. Nucleic acid amplification tests include PCR and [...] assay. Performed By: #### C VDPCR #### [facility] [address] [place] [address] Paige Rider XR CHEST 2 Von 05-14-2020 [...] by: ANSELMO GARCÍA Date: 2020-05-14 03:55 Normal [facility] Progress Note - Nurseon 04-14 Progress Note - Nurse Called for refill of oxycodone. Oarrs reviewed and patient is compliant. Follow up in place. Order proposed to Millie Johnson CNP for review. [Electronically Signed on: 04/28/2020 09:41 EDT] Uzma Arriola RN [Verified on: 04/28/2020 09:41 EDT] Uzma Arriola RN [facility] Progress Note - Nurseon 08-3 Progress Note - Nurse Called for refill of gabapentin. Oarrs reviewed and patient is compliant. Follow up in place. Order proposed to Millie Johnson CNP for review. [Electronically Signed on: 04/13/2020 10:11 EDT] Uzma Arriola RN [Verified on: 04/13/2020 10:11 EDT] Uzma Arriola RN [facility] Progress Note - Nurseon - Progress Note - Nurse Called for refill of oxycodone. Oarrs reviewed and patient is compliant. Follow up in place. Order proposed to Millie Johnson CNP for review. 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 However, the narrative phrase printed from the coding software may appear abbreviated, or result in slightly different terminology. Coded By: Chanelle Gillis Date Saved: 03/12/2020 01:20 pm [facility] Progress Note - Nurseon 02-12 Progress Note - Nurse pt calls states he needs a refill on oxycodone. oarrs is reviewed and pt is complaint. order is sent to nancy johnson Np for approval and signature, [Electronically Signed on: 03/03/2020 13:17 EDT] Mabel Treviño [Verified on: 03/03/2020 13:17 EDT] Mabel Treviño [facility] Basic Metabolic Panlon 04-27 Anion gap 3 molar conc 10 mmol/L Normal 05-01 [facility] Comment on above: Performed By: #### C BCDIF, BMP, MG1, PHOS ####[facility] [place], [place] [phone] Calcium mass conc 8.1 mg/dL Low 8.5-10.5 [facility] Comment on above: Performed By: #### C BCDIF, BMP, MG1, PHOS ####[place] [phone] Chloride molar conc 102 mmol/L Normal 98-110 [facility] Comment on above: Performed By: #### C BCDIF, BMP, MG1, PHOS ####[place] [phone] CO2 molar conc 25 mmol/L Normal 23-32 [facility] Comment on above: Performed By: #### C BCDIF, BMP, MG1, PHOS ####[place] [phone] Creatinine mass conc 0.69 mg/dL Low 0.70-1.40 [facility] Comment on above: Performed By: #### C BCDIF, BMP, MG1, PHOS ####[place] [phone] eGFR- Amer. >60 Normal >60 [facility] Comment on above: Performed By: #### C BCDIF, BMP, MG1, PHOS ####[place] [phone] GFR/1.73 sq M predicted among non-blacks MDRD vol rate/area (S/P/Bld) mL/min/{1.73_m2} Normal >60 [facility] Comment on above: Performed By: #### C BCDIF, BMP, MG1, PHOS ####[place] [phone] Glucose mass conc 161 mg/dL High 65-100 [facility] Comment on above: Performed By: #### C BCDIF, BMP, MG1, PHOS ####[place] [phone] Potassium molar conc 3.9 mmol/L Normal 3.5-5.0 [facility] Comment on above: Performed By: #### C BCDIF, BMP, MG1, PHOS ####[place] [phone] Sodium molar conc 137 mmol/L Normal 135-146 [facility] Comment on above: Performed By: #### C BCDIF, BMP, MG1, PHOS ####[place] [id number] [place], [place] [phone] Urea nitrogen mass conc 6 mg/dL Low 10-25 [facility] Comment on above: Performed By: #### C BCDIF, BMP, MG1, PHOS ####[place] [id number] [place], [place] [phone] CASE MANAGEMon 04-27-2018 CASE MANAGEM HNO ID: [id number]: Tamra (Rn) Fei, RNService: Care ManagementAuthor Type: Registered NurseType: Care Mgt Progress NoteFiled: 04/27/2018 2:58 PMNote Text:CARE MANAGEMENT PROGRESS NOTESERVICE DATE: 04/27/2018SERVICE TIME: 2:53 PM LOS: 4 daysPt is post op Colectomy.Pt resides with his grandparents.Pt noted ambulating in the [place] with no difficulty.No skilled dc needs are identified.SIGNATURE: Tamra Enamorado RN,BSN PATIENT NAME: Ruth SmithDATE: April 27, 2018 : 2:53 PM PAGER/CONTACT #: [phone] Normal [facility] CBC and Differentialon 04-27 Abs Baso <0.03 Normal <0.11 [facility] Comment on above: Performed By: #### C BCDIF, BMP, MG1, PHOS ####[place] [id number] [place], [place] [phone] Abs Mathews 0.52 k/uL Normal <0.87 [facility] Comment on above: Performed By: #### C BCDIF, BMP, MG1, PHOS ####[place] [id number] [place], [place] [phone] Abs Neut 3.90 k/uL Normal 1.45-7.50 [facility] Comment on above: Performed By: #### C BCDIF, BMP, MG1, PHOS ####[place] [id number] [place] [address] Basophils/100 WBC Auto (Bld) 0.2 % Normal [facility] Comment on above: Performed By: #### C BCDIF, BMP, MG1, PHOS ####[place] [address] DTYPE Auto Diff Normal [facility] Comment on above: Performed By: #### C BCDIF, BMP, MG1, PHOS ####[place] [address] Eosinophils Auto #/vol (Bld) 10*3/uL Normal <0.46 [facility] Comment on above: Performed By: #### C BCDIF, BMP, MG1, PHOS ####[place] [address] Eosinophils/100 WBC Auto (Bld) 0.0 % Normal [facility] Comment on above: Performed By: #### C BCDIF, BMP, MG1, PHOS ####[place] [address] Erythrocyte distribution width Auto Ratio (RBC) 14.7 % Normal 11.5-15.0 [facility] Comment on above: Performed By: #### C BCDIF, BMP, MG1, PHOS ####[place] [address] Hematocrit Auto Volume Fraction (Bld) 34.6 % Low 39.0-51.0 [facility] Comment on above: Performed By: #### C BCDIF, BMP, MG1, PHOS ####[place] [phone] Hemoglobin mass conc (Bld) 11.4 g/dL Low 13.0-17.0 [facility] Comment on above: Performed By: #### C BCDIF, BMP, MG1, PHOS ####[place] [phone] Lymphocytes Auto #/vol (Bld) 1.57 10*3/uL Normal 1.00-4.00 [facility] Comment on above: Performed By: #### C BCDIF, BMP, MG1, PHOS ####[place] [phone] Lymphocytes/100 WBC Auto (Bld) 26.2 % Normal [facility] Comment on above: Performed By: #### C BCDIF, BMP, MG1, PHOS ####[place] [phone] MCH Auto Entitic mass (RBC) 28.9 pG Normal 26.0-34.0 [facility] Comment on above: Performed By: #### C BCDIF, BMP, MG1, PHOS ####[place] [phone] MCHC Auto mass conc (RBC) 32.9 g/dL Normal 30.5-36.0 [facility] Comment on above: Performed By: #### C BCDIF, BMP, MG1, PHOS ####[place] [phone] MCV Auto Entitic volume (RBC) 87.8 fL Normal 80.0-100.0 [facility] Comment on above: Performed By: #### C BCDIF, BMP, MG1, PHOS ####[place] [phone] Monocytes/100 WBC Auto (Bld) 8.7 % Normal [facility] Comment on above: Performed By: #### C BCDIF, BMP, MG1, PHOS ####[place] [phone] Neutrophils/100 WBC Auto (Bld) 64.9 % Normal [facility] Comment on above: Performed By: #### C BCDIF, BMP, MG1, PHOS ####[place] [phone] Platelet mean volume Auto Entitic volume (Bld) 12.5 fL Normal 9.0-12.7 [facility] Comment on above: Performed By: #### C BCDIF, BMP, MG1, PHOS ####[phone] Platelets Auto #/vol (Bld) 77 10*3/uL Low 150-400 [facility] Comment on above: Result Comment: No c lot detected.Sample checked for a clot. Performed By: #### C BCDIF, BMP, MG1, PHOS ####[place] [phone] RBC Auto #/vol (Bld) 3.94 10*6/uL Low 4.20-6.00 [facility] Comment on above: Performed By: #### C BCDIF, BMP, MG1, PHOS ####[place] [phone] WBC Auto #/vol (Bld) 6.00 10*3/uL Normal 3.70-11.00 [facility] Comment on above: Performed By: #### C BCDIF, BMP, MG1, PHOS ####[place] [phone] CNDSon 04-27-2018 CN HNO ID: [id number]: Stoney (Alexis) BaljindershirService: ColorectalAuthor Type: ResidentType: Discharge SummariesFiled: 04/27/2018 5:08 PMNote Text:DISCHARGE SUMMARYPATIENT NAME: Ruth Smith ADMISSION DATE: 04/23/2018MRN: [id number] DISCHARGE DATE: 04/27/2018Attending: Des Pyle [facility] for Hospitalization: elective sigmoid colectomyPrincipal Problem: Colon [...] for cancer and a flat polyp and [id number] is segmental resection. Patient has a history of diabetes andsignificant history of myocardial infarction in his family. Cardiologyclearance was obtained.Hospital Course:The patient was admitted to the hospital with the above history. Thepatient was transferred to the OR and a laparoscopic hand assisted sigmoidcolectomy, with side to side stapled colorectal anastomosis was performed.Patient tolerated the procedure well and was [facility] floor. During the post op course [...] 27, 2018 : 5:01 PM PAGER/CONTACT #: [phone] Normal [facility] Magnesiumon 04-27-2018 Magnesium mass conc 1.6 mg/dL Low 1.7-2.6 [facility] Comment on above: Performed By: #### C BCDIF, BMP, MG1, PHOS ####[facility] [place], [place] [phone] PROGRESSon 04-27-2018 Protein mass conc HNO ID: [id number]: Stoney (Res) MubashirService: ColorectalAuthor Type: ResidentType: Progress NotesFiled: 04/27/2018 9:12 AMNote Text:Colorectal Surgery Progress NoteName: Ruth SmithMRN: [id number] al update:Overall, patient is doing well. Overnight, reports being uncomfortable,and sore. Reports feeling bloated-Pain controlled with SCARFING MACHINE OPERATOR-Denies fevers, chills, chest pain, shortness of breath-No [...] No erythema noted.- Chest: Non-labored, symmetrical respirations.Date 04/26/18699 - 04/27/1865804/27/18699 - 04/28/18 0659Shift 6759-3225 0684-6165 5507-9173 24 Hour Total 9117-0888 0961-28302590-2988 24 Hour TotalINTAKE PO 1476 051 8343 PO 8518 479 8029 IV 204 940 888 2250 NS 0.9% 204 355 556 7270 Shift Total 1404 814 518 2736OUTPUT Urine 2800 735 825 0920 750 750 Tube Output ([REMOVED] Indwelling Urinary Catheter 04/25/18 1019Assessment Coude 04/27/18 0735) 2800 910 465 7317 750 750 Shift Total 2800 608 742 7557 750 750Weight (kg) 120 120 120 120 [...] doing well.PLAN:-diet: continue GIS-palacios to be discontinued-takedown SCARFING MACHINE OPERATOR today-PT/OT- Encourage incentive spirometry and ambulation- SCD's and SQH for DVT prophylaxis- Dispo: continue care on RNFSIGNATURE: Stoney Crawford MD PATIENT NAME: Ruth FernandezTE: April 27, 2018 : 9:08 AM PAGER/CONTACT #: [phone] Normal [facility] Phosphoruson 04-27-2018 Phosphate mass conc 2.9 mg/dL Normal 2.5-4.5 [facility] Comment on above: Performed By: #### C BCDIF, BMP, MG1, PHOS ####[facility] [place], [place] [phone] THERAPY NTon 04-27-2018 THERAPY NT HNO ID: [id number]: Yady ManriqueeService: Physical TherapyAuthor Type: Physical TherapistType: Therapy (PT/OT/Speech/Resp)Filed : 04/27/2018 11:02 AMNote Text:PHYSICAL THERAPY MISSED VISITSERVICE DATE: 04/27/2018SERVICE TIME: 1030 to 1030ROOM: [id number] Treatment. Patient not seen due to Other: See Comment. Patientobserved walking independently in the halls.SIGNATURE: Yady Cloud PT PATIENT NAME: Ruth SmithDATE: April 27, 2018 : 11:00 AM Normal [facility] Basic Metabolic Panlon 04-26 Anion gap 3 molar conc 10 mmol/L Normal 9-18 [facility] Comment on above: Performed By: #### B MP, MG1, PHOS, CBCDIF ####[place] [phone] Calcium mass conc 8.4 mg/dL Low 8.5-10.5 [facility] Comment on above: Performed By: #### B MP, MG1, PHOS, CBCDIF ####[place] [phone] Chloride molar conc 102 mmol/L Normal 98-110 [facility] Comment on above: Performed By: #### B MP, MG1, PHOS, CBCDIF ####[place] [phone] CO2 molar conc 24 mmol/L Normal 23-32 [facility] Comment on above: Performed By: #### B MP, MG1, PHOS, CBCDIF ####[place] [phone] Creatinine mass conc 0.62 mg/dL Low 0.70-1.40 [facility] Comment on above: Performed By: #### B MP, MG1, PHOS, CBCDIF ####[place] [phone] eGFR- Amer. >60 Normal >60 [facility] Comment on above: Performed By: #### B MP, MG1, PHOS, CBCDIF ####[place] [phone] GFR/1.73 sq M predicted among non-blacks MDRD vol rate/area (S/P/Bld) mL/min/{1.73_m2} Normal >60 [facility] Comment on above: Performed By: #### B MP, MG1, PHOS, CBCDIF ####[place] [phone] Glucose mass conc 113 mg/dL High 65-100 [facility] Comment on above: Performed By: #### B MP, MG1, PHOS, CBCDIF ####[place] [phone] Potassium molar conc 4.3 mmol/L Normal 3.5-5.0 [facility] Comment on above: Result Comment: Revi ewed Performed By: #### B MP, MG1, PHOS, CBCDIF ####[place] [phone] Sodium molar conc 136 mmol/L Normal 135-146 [facility] Comment on above: Performed By: #### B MP, MG1, PHOS, CBCDIF ####[place] [phone] Urea nitrogen mass conc 5 mg/dL Low 10-25 [facility] Comment on above: Performed By: #### B MP, MG1, PHOS, CBCDIF ####[place] [phone] CBC and Differentialon 04-26 Abs Baso <0.03 Normal <0.11 [facility] Comment on above: Performed By: #### B MP, MG1, PHOS, CBCDIF ####[place] [phone] Abs Mathews 0.66 k/uL Normal <0.87 [facility] Comment on above: Performed By: #### B MP, MG1, PHOS, CBCDIF ####[place] [phone] Abs Neut 4.86 k/uL Normal 1.45-7.50 [facility] Comment on above: Performed By: #### B MP, MG1, PHOS, CBCDIF ####[place] [phone] Basophils/100 WBC Auto (Bld) 0.1 % Normal [facility] Comment on above: Performed By: #### B MP, MG1, PHOS, CBCDIF ####[place] [address] DTYPE Auto Diff Normal [facility] Comment on above: Performed By: #### B MP, MG1, PHOS, CBCDIF ####[place] [address] Eosinophils Auto #/vol (Bld) 10*3/uL Normal <0.46 [facility] Comment on above: Performed By: #### B MP, MG1, PHOS, CBCDIF ####[place] [address] Eosinophils/100 WBC Auto (Bld) 0.0 % Normal [facility] Comment on above: Performed By: #### B MP, MG1, PHOS, CBCDIF ####[place] [address] Erythrocyte distribution width Auto Ratio (RBC) 14.9 % Normal 11.5-15.0 [facility] Comment on above: Performed By: #### B MP, MG1, PHOS, CBCDIF ####[place] [address] Hematocrit Auto Volume Fraction (Bld) 37.1 % Low 39.0-51.0 [facility] Comment on above: Performed By: #### B MP, MG1, PHOS, CBCDIF ####[place] [address] Hemoglobin mass conc (Bld) 12.0 g/dL Low 13.0-17.0 [facility] Comment on above: Performed By: #### B MP, MG1, PHOS, CBCDIF ####[place] [address] Lymphocytes Auto #/vol (Bld) 1.40 10*3/uL Normal 1.00-4.00 [facility] Comment on above: Performed By: #### B MP, MG1, PHOS, CBCDIF ####[place] [phone] Lymphocytes/100 WBC Auto (Bld) 20.2 % Normal [facility] Comment on above: Performed By: #### B MP, MG1, PHOS, CBCDIF ####[place] [phone] MCH Auto Entitic mass (RBC) 28.9 pG Normal 26.0-34.0 [facility] Comment on above: Performed By: #### B MP, MG1, PHOS, CBCDIF ####[place] [phone] MCHC Auto mass conc (RBC) 32.3 g/dL Normal 30.5-36.0 [facility] Comment on above: Performed By: #### B MP, MG1, PHOS, CBCDIF ####[place] [phone] MCV Auto Entitic volume (RBC) 89.4 fL Normal 80.0-100.0 [facility] Comment on above: Performed By: #### B MP, MG1, PHOS, CBCDIF ####[place] [phone] Monocytes/100 WBC Auto (Bld) 9.5 % Normal [facility] Comment on above: Performed By: #### B MP, MG1, PHOS, CBCDIF ####[place] [phone] Neutrophils/100 WBC Auto (Bld) 70.2 % Normal [facility] Comment on above: Performed By: #### B MP, MG1, PHOS, CBCDIF ####[place] [phone] Platelet mean volume Auto Entitic volume (Bld) 13.7 fL High 9.0-12.7 [facility] Comment on above: Performed By: #### B MP, MG1, PHOS, CBCDIF ####[phone] Platelets Auto #/vol (Bld) 83 10*3/uL Low 150-400 [facility] Comment on above: Result Comment: Revi ewedSample checked for a clot. Performed By: #### B MP, MG1, PHOS, CBCDIF ####[place] [phone] RBC Auto #/vol (Bld) 4.15 10*6/uL Low 4.20-6.00 [facility] Comment on above: Performed By: #### B MP, MG1, PHOS, CBCDIF ####[place] [phone] WBC Auto #/vol (Bld) 6.93 10*3/uL Normal 3.70-11.00 [facility] Comment on above: Performed By: #### B MP, MG1, PHOS, CBCDIF ####[place] [address] Magnesiumon 04-26-2018 Magnesium mass conc 1.7 mg/dL Normal 1.7-2.6 [facility] Comment on above: Performed By: #### B MP, MG1, PHOS, CBCDIF ####[place] [phone] NURSING PROGon 04-26-2018 Protein mass conc HNO ID: [id number]: Pilar (Rn) DANIA Daveyervice: (none)Author Type: Registered NurseType: Nursing Progress NoteFiled: 04/27/2018 1:14 AMNote Text: Nursing Progress NotePatient Name: Ruth SmithMRN: [id number] Location: [facility]3A03/[id number]____ Daily Note:tolerating gi soft diet without n/v. ambulated pod with 1assist and walker. several times. abdomemn is distended and tender,sites look [id number] up in room, pas on when not ambulatingThis note was completed by: Pilar Davey RN [facility] Protein mass conc HNO ID: [id number]: Liz (Elias) Kimberley, RNService: (none)Author Type: Registered NurseType: Nursing Progress NoteFiled: 04/26/2018 2:44 AMNote Text: Nursing Progress NotePatient Name: Ruth SmithMRN: [id number] Location: [place] [address]/[id number]____ Daily note: Pt ambulated the POD several times tonight, has had multipleBM's, still taking oxy for pain as well as using the SCARFING MACHINE OPERATOR pump but says heis trying to hit the pump less. Will continue to monitor and check withpatient.This note was completed by: Liz Chu RN [facility] PROGRESSon 04-26-2018 Protein mass conc HNO ID: [id number]: Stoney (Res) MudashairService: ColorectalAuthor Type: ResidentType: Progress NotesFiled: 04/26/2018 7:43 AMNote Text:Colorectal Surgery Progress NoteName: Ruth SmithMRN: [id number] al update:Overall, patient is doing well. Overnight, reports being uncomfortable,and sore. Reports feeling bloated-Pain controlled with SCARFING MACHINE OPERATOR-Denies fevers, chills, chest pain, shortness of breath-No [...] 04/26/18 0659 04/26/18 07 - 04/27/18 0659Shift 3460-2455 9724-1600 3052-2146 24 Hour Total 8154-5232 8564-00394256-5977 24 Hour TotalINTAKE PO 675 181 5771 2405 PO 043 477 8758 2405 IV 890 1635 388 6381 NS 0.9% 640 9467 735 1725 Potassium Phosphate 250 250 Shift Total 1130 [...] 5-10 mg ORAL q 4 H PRNHYDROmorphone SCARFING MACHINE OPERATOR 0.5 mg/mL in NaCl 0.9% 100 mL [...] 161* 140*CA 8.4* 7.8* 8.2* 8.1*LFT'sRecent Labs [id number] 7.9ALB 4.5ALT 29AST 58*ALKPHOS 60TBILI 1.2Assessment/Plan49 M, POD 3 s/p laparoscopic hand assisted sigmoid colectomy, with side toside stapled colorectal anastomosis. Clinically doing well.PLAN:-diet: continue clear liquids-PT/OT-keep palacios in-decrease SCARFING MACHINE OPERATOR settings- Encourage incentive spirometry and ambulation- SCD's and SQH for DVT prophylaxis- Dispo: continue care on RNF?SIGNATURE: Stoney Crawford MD PATIENT NAME: Ruth SmithDATE: April 26, 2018 : 7:42 AM PAGER/CONTACT #: [phone] Normal [facility] Phosphoruson 04-26-2018 Phosphate mass conc 2.1 mg/dL Low 2.5-4.5 [facility] Comment on above: Performed By: #### B MP, MG1, PHOS, CBCDIF ####[place] [phone] Basic Metabolic Panlon 04-25 Anion gap 3 molar conc 10 mmol/L Normal 9-18 [facility] Comment on above: Performed By: #### C BCDIF, BMP, MG1, PHOS ####[place] [phone] Calcium mass conc 7.8 mg/dL Low 8.5-10.5 [facility] Comment on above: Performed By: #### C BCDIF, BMP, MG1, PHOS ####[place] [phone] Chloride molar conc 99 mmol/L Normal 98-110 [facility] Comment on above: Performed By: #### C BCDIF, BMP, MG1, PHOS ####[place] [phone] CO2 molar conc 27 mmol/L Normal 23-32 [facility] Comment on above: Performed By: #### C BCDIF, BMP, MG1, PHOS ####[place] [phone] Creatinine mass conc 0.70 mg/dL Normal 0.70-1.40 [facility] Comment on above: Performed By: #### C BCDIF, BMP, MG1, PHOS ####[place] [phone] eGFR- Amer. >60 Normal >60 [facility] Comment on above: Performed By: #### C BCDIF, BMP, MG1, PHOS ####[place] [phone] GFR/1.73 sq M predicted among non-blacks MDRD vol rate/area (S/P/Bld) mL/min/{1.73_m2} Normal >60 [facility] Comment on above: Performed By: #### C BCDIF, BMP, MG1, PHOS ####[place] [phone] Glucose mass conc 98 mg/dL Normal 65-100 [facility] Comment on above: Performed By: #### C BCDIF, BMP, MG1, PHOS ####[place] [phone] Potassium molar conc 3.3 mmol/L Low 3.5-5.0 [facility] Comment on above: Performed By: #### C BCDIF, BMP, MG1, PHOS ####[place] [phone] Sodium molar conc 136 mmol/L Normal 135-146 [facility] Comment on above: Performed By: #### C BCDIF, BMP, MG1, PHOS ####[place] [phone] Urea nitrogen mass conc 12 mg/dL Normal 10-25 [facility] Comment on above: Performed By: #### C BCDIF, BMP, MG1, PHOS ####[place] [phone] CBC and Differentialon 04-25 Abs Baso <0.03 Normal <0.11 [facility] Comment on above: Performed By: #### C BCDIF, BMP, MG1, PHOS ####[place] [phone] Abs Mathews 0.59 k/uL Normal <0.87 [facility] Comment on above: Performed By: #### C BCDIF, BMP, MG1, PHOS ####[place] [phone] Abs Neut 4.45 k/uL Normal 1.45-7.50 [facility] Comment on above: Performed By: #### C BCDIF, BMP, MG1, PHOS ####[place] [address] Basophils/100 WBC Auto (Bld) 0.2 % Normal [facility] Comment on above: Performed By: #### C BCDIF, BMP, MG1, PHOS ####[place] [address] DTYPE Auto Diff Normal [facility] Comment on above: Performed By: #### C BCDIF, BMP, MG1, PHOS ####[place] [address] Eosinophils Auto #/vol (Bld) 10*3/uL Normal <0.46 [facility] Comment on above: Performed By: #### C BCDIF, BMP, MG1, PHOS ####[place] [address] Eosinophils/100 WBC Auto (Bld) 0.0 % Normal [facility] Comment on above: Performed By: #### C BCDIF, BMP, MG1, PHOS ####[place] [address] Erythrocyte distribution width Auto Ratio (RBC) 15.2 % High 11.5-15.0 [facility] Comment on above: Performed By: #### C BCDIF, BMP, MG1, PHOS ####[place] [address] Hematocrit Auto Volume Fraction (Bld) 34.7 % Low 39.0-51.0 [facility] Comment on above: Performed By: #### C BCDIF, BMP, MG1, PHOS ####[place] [address] Hemoglobin mass conc (Bld) 11.2 g/dL Low 13.0-17.0 [facility] Comment on above: Performed By: #### C BCDIF, BMP, MG1, PHOS ####[place] [phone] Lymphocytes Auto #/vol (Bld) 1.31 10*3/uL Normal 1.00-4.00 [facility] Comment on above: Performed By: #### C BCDIF, BMP, MG1, PHOS ####[place] [phone] Lymphocytes/100 WBC Auto (Bld) 20.6 % Normal [facility] Comment on above: Performed By: #### C BCDIF, BMP, MG1, PHOS ####[place] [phone] MCH Auto Entitic mass (RBC) 28.6 pG Normal 26.0-34.0 [facility] Comment on above: Performed By: #### C BCDIF, BMP, MG1, PHOS ####[place] [phone] MCHC Auto mass conc (RBC) 32.3 g/dL Normal 30.5-36.0 [facility] Comment on above: Performed By: #### C BCDIF, BMP, MG1, PHOS ####[place] [phone] MCV Auto Entitic volume (RBC) 88.5 fL Normal 80.0-100.0 [facility] Comment on above: Performed By: #### C BCDIF, BMP, MG1, PHOS ####[place] [phone] Monocytes/100 WBC Auto (Bld) 9.3 % Normal [facility] Comment on above: Performed By: #### C BCDIF, BMP, MG1, PHOS ####[place] [phone] Neutrophils/100 WBC Auto (Bld) 69.9 % Normal [facility] Comment on above: Performed By: #### C BCDIF, BMP, MG1, PHOS ####[phone] Platelet mean volume Auto Entitic volume (Bld) 12.7 fL Normal 9.0-12.7 [facility] Comment on above: Performed By: #### C BCDIF, BMP, MG1, PHOS ####[place] [phone] Platelets Auto #/vol (Bld) 67 10*3/uL Low 150-400 [facility] Comment on above: Result Comment: Resu lt checked and verifiedSample checked for a clot. Performed By: #### C BCDIF, BMP, MG1, PHOS ####[place] [phone] RBC Auto #/vol (Bld) 3.92 10*6/uL Low 4.20-6.00 [facility] Comment on above: Performed By: #### C BCDIF, BMP, MG1, PHOS ####[place] [phone] WBC Auto #/vol (Bld) 6.36 10*3/uL Normal 3.70-11.00 [facility] Comment on above: Performed By: #### C BCDIF, BMP, MG1, PHOS ####[place] [phone] Magnesiumon 04-25-2018 Magnesium mass conc 1.8 mg/dL Normal 1.7-2.6 [facility] Comment on above: Performed By: #### C BCDIF, BMP, MG1, PHOS ####[place] [phone] NURSING PROGon 04-25-2018 Protein mass conc HNO ID: [id number]: Samaria Lea (Rn) DANIA Hernandezervice: (none)Author Type: Registered NurseType: Nursing Progress NoteFiled: 04/25/2018 11:37 AMNote Text: Nursing Progress NotePatient Name: Ruth SmithMRN: [id number] Location: [place] [address]/KL-[id number]____ Daily Note: Patient was unable to void and kept trying but Dr ordered toreplace palacios catheter and initially 500ml out; he has been walking theentire pod already a few times today tolerates well, had a liquid bm, +flatus, started a clear liquid diet, tolerating, still has some abdominaldistention, uses roast master for pain control and prn oxy pain score 7 to 8,receiving KPhos bolus and po K+, stable, continue to monitor.This note was completed by: Samaria Hernandez RN [facility] Protein mass conc HNO ID: [id number]: Azul (Rn) DANIA Tobarervice: (none)Author Type: Registered NurseType: Nursing Progress NoteFiled: 04/25/2018 6:48 AMNote Text: Nursing Progress NotePatient Name: Ruth SmithMRN: [id number] Location[facility]3A03/MS-VO8A-32____ Daily Note: 194 (late entry): Pt unable to void since palacios removal thisafternoon. Pt bladder scanned for 168 mL. Safety maintained and [facility]. Will continue to monitor.0019 (late entry): Pt [...] note was completed by: Azul Tobar RN [facility] PROGRESSon 04-25-2018 Protein mass conc HNO ID: [id number]: Stoney (Cesar Hawkinservice: ColorectalAuthor Type: ResidentType: Progress NotesFiled: 04/25/2018 1:35 PMNote Text:Colorectal Surgery Progress NoteName: Ruth SmithMRN: [id number] al update:Overall, patient is doing well. Overnight, pt unable to void since foleyremoval yesterday afternoon. Pt bladder scanned for 168 mL. Pt straightcathed for 650 mL of dark lita urine, tolerated well. Unable to voidagain several hours later, palacios replaced.-Pain controlled with SCARFING MACHINE OPERATOR, feels uncomfortable-Denies fevers, chills, chest pain, shortness [...] No erythema noted.- Chest: Non-labored, symmetrical respirations.Date 04/24/18699 - 04/25/18 0604/25/18699 - 04/26/18 0659Shift 8270-1231 7537-1501 1460-4923 24 Hour Total 1402-3519 3535-30836776-1326 24 Hour TotalINTAKE PO 200 280 120 600 120 120 PO 200 280 120 600 120 120 IV 591 666 804 0944 NS 0.9% 996 261 5611 LR 591 591 Shift Total 791 3697 670 5449 120 120OUTPUT Urine 225 650 875 845 [...] 5-10 mg ORAL q 4 H PRNHYDROmorphone SCARFING MACHINE OPERATOR 0.5 mg/mL in NaCl 0.9% 100 mL [...] Encourage incentive spirometry and ambulation- SCD's and [facility] for DVT prophylaxis- Dispo: continue care on RNF?SIGNATURE: Stoney Crawford MD PATIENT NAME: Ruth SmithDATE: April 25, 2018 : 1:35 PM PAGER/CONTACT #: [phone] [facility] PT EDon 04-25-2018 PT ED HNO ID: [id number]: [place] (Diet-T) OlindaanService: Nutrition TherapyAuthor Type: Dietetic TechnicianType: Patient EducationFiled: 04/25/2018 1:58 PMNote Text:NUTRITION PATIENT EDUCATIONTOPIC: Survival Skills: DietPATIENT NAME: Ruth SmithMRN: [id number] DATE: April 25, 2018Diagnosis: ADULT: Colon CancerREADINESS [...] OutpatientMNT Billing Type: Routine Care/15 min 3 blanche Vang-tPager: [phone] [phone] PM Normal [facility] Phosphoruson 04-25-2018 Phosphate mass conc 2.4 mg/dL Low 2.5-4.5 [facility] Comment on above: Performed By: #### C BCDIF, BMP, MG1, PHOS ####[place] [phone] Basic Metabolic Panlon 04-24 Anion gap 3 molar conc 14 mmol/L Normal 9-18 [facility] Comment on above: Performed By: #### B MP ####[place] [phone] Calcium mass conc 8.2 mg/dL Low 8.5-10.5 [facility] Comment on above: Performed By: #### B MP ####[place] [phone] Chloride molar conc 96 mmol/L Low 98-110 [facility] Comment on above: Performed By: #### B MP ####[place] [phone] CO2 molar conc 25 mmol/L Normal 23-32 [facility] Comment on above: Performed By: #### B MP ####[place] [phone] Creatinine mass conc 0.69 mg/dL Low 0.70-1.40 [facility] Comment on above: Performed By: #### B MP ####[place] [phone] eGFR- Amer. >60 Normal >60 [facility] Comment on above: Performed By: #### B MP ####[place] [phone] GFR/1.73 sq M predicted among non-blacks MDRD vol rate/area (S/P/Bld) mL/min/{1.73_m2} Normal >60 [facility] Comment on above: Performed By: #### B MP ####[place] [phone] Glucose mass conc 161 mg/dL High 65-100 [facility] Comment on above: Performed By: #### B MP ####[place] [phone] Potassium molar conc 3.8 mmol/L Normal 3.5-5.0 [facility] Comment on above: Result Comment: Revi ewed Performed By: #### B MP ####[place] [phone] Sodium molar conc 135 mmol/L Normal 135-146 [facility] Comment on above: Performed By: #### B MP ####[place] [phone] Urea nitrogen mass conc 15 mg/dL Normal 10-25 [facility] Comment on above: Performed By: #### B MP ####[place] [phone] Anion gap 3 molar conc 12 mmol/L Normal 9-18 [facility] Comment on above: Performed By: #### T SCR30 ####[place] [phone] Calcium mass conc 8.1 mg/dL Low 8.5-10.5 [facility] Comment on above: Performed By: #### T SCR30 ####[place] [phone] Chloride molar conc 96 mmol/L Low 98-110 [facility] Comment on above: Performed By: #### T SCR30 ####[place] [phone] CO2 molar conc 28 mmol/L Normal 23-32 [facility] Comment on above: Performed By: #### T SCR30 ####[phone] Creatinine mass conc 0.77 mg/dL Normal 0.70-1.40 [facility] Comment on above: Performed By: #### T SCR30 ####[place] [phone] eGFR- Amer. >60 Normal >60 [facility] Comment on above: Performed By: #### T SCR30 ####[place] [phone] GFR/1.73 sq M predicted among non-blacks MDRD vol rate/area (S/P/Bld) mL/min/{1.73_m2} Normal >60 [facility] Comment on above: Performed By: #### T SCR30 ####[place] [phone] Glucose mass conc 140 mg/dL High 65-100 [facility] Comment on above: Performed By: #### T SCR30 ####[place] [phone] Potassium molar conc 3.1 mmol/L Low 3.5-5.0 [facility] Comment on above: Performed By: #### T SCR30 ####[place] [phone] Sodium molar conc 136 mmol/L Normal 135-146 [facility] Comment on above: Performed By: #### T SCR30 ####[place] [phone] Urea nitrogen mass conc 14 mg/dL Normal 10-25 [facility] Comment on above: Performed By: #### T SCR30 ####[facility] [place], [place] [phone] CASE MGT INIT Santos 2017 CASE MGT INIT BECCA HNO ID: [id number]: Myah (Rn) Omkar RNService: Care ManagementAuthor Type: Registered NurseType: Care Mgt Initial AssessmentFiled: 04/24/2018 3:07 PMNote Text:CARE MANAGEMENT: ASSESSMENT AND DISCHARGE PLANSERVICE DATE: 04/24/2018SERVICE TIME: 3:01 PMPRIBANNERY CARE PHYSICIAN:León Tubbs: [phone] STATUS: InpatientMEDICAL:Patient /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 NoAdvance Directive:Current Advance Directive: Health Care Power of AttorneyIn Chart: NoCare Costumed Character Entertainer Attempted to Assist with AD Completion: YesAction: [...] - StraightHas the Patient Been in a Chcf Facility in the Past 30 days? NoSOCIAL:Living Arrangement: HomeLives With: grandma and grandpaFinancial Resources: DisabledPrimary Contact: Extended Emergency Contact InformationPrimary Emergency Contact: Matt Mahan Krkepp Ruzbmjsz: GrandparentSupportive: YesOther Important Patient Contacts: NoneCaregiver Assessment:Caregiver [...] - 0I feel financially burdened by my iiy-qa-ktdzan expenses for myprescription medication: Disagree mostly -0Patient [...] Needs: NoneFREEDOM OF CHOICE EXPLAINED:N/APOTENTIAL TRANSITION PLANSHomeThis case maker met with the patient at bedside. Patient [...] 2018 : 3:01 PM PAGER/CONTACT #: Normal [facility] CBC and Differentialon 04-24 Abs Baso <0.03 Normal <0.11 [facility] Comment on above: Performed By: #### B MP, PHOS, CBCDIF, MG1 ####[facility] [place], [place] [phone] Abs Mathews 0.65 k/uL Normal <0.87 [facility] Comment on above: Performed By: #### B MP, PHOS, CBCDIF, MG1 ####[place] [address] Abs Neut 3.98 k/uL Normal 1.45-7.50 [facility] Comment on above: Performed By: #### B MP, PHOS, CBCDIF, MG1 ####[place] [address] Basophils/100 WBC Auto (Bld) 0.2 % Normal [facility] Comment on above: Performed By: #### B MP, PHOS, CBCDIF, MG1 ####[place] [address] DTYPE Auto Diff Normal [facility] Comment on above: Performed By: #### B MP, PHOS, CBCDIF, MG1 ####[place] [address] Eosinophils Auto #/vol (Bld) 10*3/uL Normal <0.46 [facility] Comment on above: Performed By: #### B MP, PHOS, CBCDIF, MG1 ####[place] [address] Eosinophils/100 WBC Auto (Bld) 0.3 % Normal [facility] Comment on above: Performed By: #### B MP, PHOS, CBCDIF, MG1 ####[place] [address] Erythrocyte distribution width Auto Ratio (RBC) 15.2 % High 11.5-15.0 [facility] Comment on above: Performed By: #### B MP, PHOS, CBCDIF, MG1 ####[place] [address] Hematocrit Auto Volume Fraction (Bld) 36.4 % Low 39.0-51.0 [facility] Comment on above: Performed By: #### B MP, PHOS, CBCDIF, MG1 ####[place] [phone] Hemoglobin mass conc (Bld) 11.9 g/dL Low 13.0-17.0 [facility] Comment on above: Performed By: #### B MP, PHOS, CBCDIF, MG1 ####[place] [phone] Lymphocytes Auto #/vol (Bld) 1.16 10*3/uL Normal 1.00-4.00 [facility] Comment on above: Performed By: #### B MP, PHOS, CBCDIF, MG1 ####[place] [phone] Lymphocytes/100 WBC Auto (Bld) 19.9 % Normal [facility] Comment on above: Performed By: #### B MP, PHOS, CBCDIF, MG1 ####[place] [phone] MCH Auto Entitic mass (RBC) 28.3 pG Normal 26.0-34.0 [facility] Comment on above: Performed By: #### B MP, PHOS, CBCDIF, MG1 ####[place] [phone] MCHC Auto mass conc (RBC) 32.7 g/dL Normal 30.5-36.0 [facility] Comment on above: Performed By: #### B MP, PHOS, CBCDIF, MG1 ####[place] [phone] MCV Auto Entitic volume (RBC) 86.7 fL Normal 80.0-100.0 [facility] Comment on above: Performed By: #### B MP, PHOS, CBCDIF, MG1 ####[place] [phone] Monocytes/100 WBC Auto (Bld) 11.2 % Normal [facility] Comment on above: Performed By: #### B MP, PHOS, CBCDIF, MG1 ####[place] [phone] Neutrophils/100 WBC Auto (Bld) 68.4 % Normal [facility] Comment on above: Performed By: #### B MP, PHOS, CBCDIF, MG1 ####[place] [phone] Platelet mean volume Auto Entitic volume (Bld) 13.3 fL High 9.0-12.7 [facility] Comment on above: Performed By: #### B MP, PHOS, CBCDIF, MG1 ####[place] [phone] Platelets Auto #/vol (Bld) 68 10*3/uL Low 150-400 [facility] Comment on above: Result Comment: Revi ewedSample checked for a clot. Performed By: #### B MP, PHOS, CBCDIF, MG1 ####[place] [phone] RBC Auto #/vol (Bld) 4.20 10*6/uL Normal 4.20-6.00 [facility] Comment on above: Performed By: #### B MP, PHOS, CBCDIF, MG1 ####[place] [phone] WBC Auto #/vol (Bld) 5.82 10*3/uL Normal 3.70-11.00 [facility] Comment on above: Performed By: #### B MP, PHOS, CBCDIF, MG1 ####[place] [phone] Magnesiumon 04-24-2018 Magnesium mass conc 1.9 mg/dL Normal 1.7-2.6 [facility] Comment on above: Performed By: #### B MP, PHOS, CBCDIF, MG1 ####[place] [phone] NURSING PROGon 04-24-2018 Protein mass conc HNO ID: [id number]: Bentely (Rn) DANIA Thompsonervice: (none)Author Type: Registered NurseType: Nursing Progress NoteFiled: 04/24/2018 5:47 PMNote Text: Nursing Progress NotePatient Name: Ruth SmithMRN: [id number] Location: [facility]3A03/RY-IO8G-71____ Daily Note:04/24/18 0744- Sent page to Dr. Webb to clarify K+ order.0845- Spoke with Dr. Webb, she clarified the patient should [id number] of IV K+.0930- Patient was assisted to the chair with two person assist and awalker. Patient tolerated the movement well. Patient is alert andoriented times three, calm and cooperative. Vitals are stable, oxygensaturation is adequate on room air. Changed fluids to normal saline perorders; SCARFING MACHINE OPERATOR settings verified against orders. Pain controlled with SCARFING MACHINE OPERATOR,scheduled tylenol and toradol. Hand grasps and push/pulls [...] note was completed by: Bentley Thompson RN [facility] PROGRESSon 04-24-2018 Protein mass conc HNO ID: [id number]: Stoney (Res) MubashirService: ColorectalAuthor Type: ResidentType: Progress NotesFiled: 04/24/2018 8:46 AMNote Text:Colorectal Surgery Progress NoteName: Ruth SmithMRN: [id number] al update:Overall, patient is doing well. No significant overnight issues noted.-Pain present, controlled with SCARFING MACHINE OPERATOR-Denies fevers, chills, chest pain, shortness of breath-No [...] noted.- Chest: Non-labored, symmetrical respirations.Date 04/23/18699 - 04/24/18 0604/24/18699 - 04/25/18 0659Shift 9487-1184 5369-9851 9069-8657 24 Hour Total 5822-1139 5552-31620085-6743 24 Hour TotalINTAKE PO 40 60 100 PO 40 60 100 IV 1800 50 1031 2881 Magnesium IVPB 50 50 LR 1031 1031 OR Crystalloid intake (mL) 1800 1800 Other 400 400 PACU ([facility] Only) 400 400 Shift Total 1425 586 8111 3381OUTPUT Urine 350 461 520 8992 75 75 OR Urine Output 350 350 Tube Output ( Indwelling Urinary Catheter 04/23/18 1118 Palacios 16Fr) 700 100 800 75 75 # of BMs Number of BMs 0 x 0 x Blood 50 50 Estimated Blood loss 50 50 Shift Total 400 071 952 8672 75 75Weight (kg) 120 120 120 120 [...] 5-10 mg ORAL q 4 H PRNHYDROmorphone SCARFING MACHINE OPERATOR 0.5 mg/mL in NaCl 0.9% 100 mL [...] 24, 2018 : 8:42 AM PAGER/CONTACT #: [phone] Normal [facility] Phosphoruson 04-24-2018 Phosphate mass conc 3.3 mg/dL Normal 2.5-4.5 [facility] Comment on above: Performed By: #### T SCR30 ####[facility] [place], [place] [phone] THERAPY NTon 04-24-2018 THERAPY NT HNO ID: [id number]: Ruby (Ot) GarnekService: Occupational TherapyAuthor Type: Occupational TherapistType: Therapy (PT/OT/Speech/Resp)Filed : 04/24/2018 2:20 PMNote Text:Occupational Therapy EvaluationSERVICE DATE: 04/24/2018SERVICE TIME: 1300 to 1325ROOM: [id number] CA, S/P Laparoscopic Left Duncan-Colectomy 04/23/18Recommended Discharge Disposition: HomeAnticipated Discharge Needs: Physical Assist at HomePhysical Assist at Home for: Laundry;Cleaning;Shoppin g;TransportationRecommen ded Discharge Equipment: Elastic Shoe Laces;Grab Bars-Shower;HandHeld Shower;Long Handled Shoe Horn;Long Handled Sponge;WheeledWalker;Correll fly;Sock Aide;Shower ChairOT Recommendations to Nursing: Transfer [...] For Complete PastMedical History Please Ref[facility] to [facility]. Pt presents with decreased abilityto complete [...] Pt has grandparents for support. Pt resides [place], [place], and plans to return home.Patient Disposition [...] (ADL);Muscle Weakness (generalized)Interventio ns Provided: Evaluation;Therapeutic Activity (42043)$ Evaluation-Low (75358) Billed Units: 1 unitTherapeutic Activity (86648) Treatment Minutes: 101 unitSkilled Intervention(s): Instruction in [...] April 24, 2018 : 2:15 PM Normal [facility] THERAPY NT HNO ID: [id number]: Yady (Pt) BurtoneService: Physical TherapyAuthor Type: Physical TherapistType: Therapy (PT/OT/Speech/Resp)Filed : 04/24/2018 2:15 PMNote Text:Physical Therapy EvaluationSERVICE DATE: 04/24/2018SERVICE TIME: 1320 to 1345ROOM: [id number] Discharge Disposition: HomeAnticipated Discharge Needs: Physical Assist [...] neral symptoms and signs-otherInterventions Provided: Evaluation;Gait Training (89343)$ Evaluation-Low (84250) Billed Units: 1 unitGait Training (74857) Treatment Minutes: 101 unitSkilled Intervention(s): Instruction in [...] SmithDATE: April 24, 2018 : 2:13 PM [facility] ANES Callum 04-23-2018 ANES POST HNO ID: [id number]: Jason Finkervice: AnesthesiologyAuthor Type: AnesthesiologistType: Anesthesia PostOpFiled: [...] 23, 2018 : 4:47 PM PAGER/CONTACT #: [facility] ANEOzzy PREOPon 04-23-2018 ANES PREOP HNO ID: [id number]: Jason Finkervice: AnesthesiologyAuthor Type: AnesthesiologistType: Anesthesia PreOpFiled: 04/23/2018 11:36 AMNote Text:REGIONAL ANESTHESIOLOGY DAY OF SURGERY NOTEPATIENT NAME: Ruth SmithMRN: [id number]: 1970Procedure(s) (LRB):LAPAROSCOPIC HAND ASSISTED COLECTOMY SIGMOID (Left)Surgeon(s):Des [...] mouth four times daily.Inpatient medications reviewed in [facility].I have interviewed and examined the patient. I have reviewed the medicalrecord and/or the pre-anesthesia evaluation, pertinent labs, and testresults.Significant changes in the patient's condition since the History andPhysical, not otherwise documented in primary service progress notes: NoThis contains updated information obtained within 48 hours ofSurgery/Procedure.SIGN ATURE: Jason Kimble MD PATIENT NAME: Ruth SmithDATE: April 23, 2018 : 11:35 AM PAGER/CONTACT #: [facility] BRIEF OP NOTon 04-23-2018 BRIEF OP NOT HNO ID: [id number]: Jason GarciaService: ColorectalAuthor Type: ResidentType: Brief Op NoteFiled: 04/23/2018 2:23 PMNote Text:BRIEF OPERATIVE NOTE - COLORECTAL SURGERYLog ID: [id number]/Procedure Date: 04/23/2018Incision/Proced ure Start Time: 11:21 AMIncision Close/Procedure End Time: 2:15 PMSurgeon(s) and Loan Processor(s):Surgeon(s) and Role: * Des Flores - Primary * Jason Gacria - FellowNo Additional StaffProcedures and Anesthesia:Procedure(s) and [...] 23, 2018 : 2:22 PM PAGER/CONTACT #: [phone] Normal [facility] Basic Metabolic Panlon 04-23 Anion gap 3 molar conc 19 mmol/L High 9-18 [facility] Comment on above: Performed By: #### T SCR30 ####[place] [phone] Calcium mass conc 8.6 mg/dL Normal 8.5-10.5 [facility] Comment on above: Performed By: #### T SCR30 ####[place] [phone] Chloride molar conc 93 mmol/L Low 98-110 [facility] Comment on above: Performed By: #### T SCR30 ####[place] [phone] CO2 molar conc 23 mmol/L Normal 23-32 [facility] Comment on above: Performed By: #### T SCR30 ####[place] [phone] Creatinine mass conc 0.75 mg/dL Normal 0.70-1.40 [facility] Comment on above: Performed By: #### T SCR30 ####[place] [phone] eGFR- Amer. >60 Normal >60 [facility] Comment on above: Performed By: #### T SCR30 ####[place] [phone] GFR/1.73 sq M predicted among non-blacks MDRD vol rate/area (S/P/Bld) mL/min/{1.73_m2} Normal >60 [facility] Comment on above: Performed By: #### T SCR30 ####[place] [phone] Glucose mass conc 242 mg/dL High 65-100 [facility] Comment on above: Performed By: #### T SCR30 ####[place] [phone] Potassium molar conc 3.5 mmol/L Normal 3.5-5.0 [facility] Comment on above: Performed By: #### T SCR30 ####[place] [phone] Sodium molar conc 135 mmol/L Normal 135-146 [facility] Comment on above: Performed By: #### T SCR30 ####[phone] Urea nitrogen mass conc 12 mg/dL Normal 10-25 [facility] Comment on above: Performed By: #### T SCR30 ####[place] [phone] CBC and Differentialon 04-23 Abs Baso <0.03 Normal <0.11 [facility] Comment on above: Performed By: #### T SCR30 ####[place] [phone] Abs Mathews 0.69 k/uL Normal <0.87 [facility] Comment on above: Performed By: #### T SCR30 ####[place] [phone] Abs Neut 8.24 k/uL High 1.45-7.50 [facility] Comment on above: Performed By: #### T SCR30 ####[place] [phone] Basophils/100 WBC Auto (Bld) 0.1 % Normal [facility] Comment on above: Performed By: #### T SCR30 ####[place] [phone] DTYPE Auto Diff Normal [facility] Comment on above: Performed By: #### T SCR30 ####[phone] Eosinophils Auto #/vol (Bld) 10*3/uL Normal <0.46 [facility] Comment on above: Performed By: #### T SCR30 ####[place] [phone] Eosinophils/100 WBC Auto (Bld) 0.0 % Normal [facility] Comment on above: Performed By: #### T SCR30 ####[place] [phone] Erythrocyte distribution width Auto Ratio (RBC) 15.0 % Normal 11.5-15.0 [facility] Comment on above: Performed By: #### T SCR30 ####[place] [phone] Hematocrit Auto Volume Fraction (Bld) 38.1 % Low 39.0-51.0 [facility] Comment on above: Performed By: #### T SCR30 ####[place] [phone] Hemoglobin mass conc (Bld) 12.7 g/dL Low 13.0-17.0 [facility] Comment on above: Performed By: #### T SCR30 ####[place] [phone] Lymphocytes Auto #/vol (Bld) 0.61 10*3/uL Low 1.00-4.00 [facility] Comment on above: Performed By: #### T SCR30 ####[phone] Lymphocytes/100 WBC Auto (Bld) 6.4 % Normal [facility] Comment on above: Performed By: #### T SCR30 ####[place] [phone] MCH Auto Entitic mass (RBC) 28.8 pG Normal 26.0-34.0 [facility] Comment on above: Performed By: #### T SCR30 ####[place] [phone] MCHC Auto mass conc (RBC) 33.3 g/dL Normal 30.5-36.0 [facility] Comment on above: Performed By: #### T SCR30 ####[place] [phone] MCV Auto Entitic volume (RBC) 86.4 fL Normal 80.0-100.0 [facility] Comment on above: Performed By: #### T SCR30 ####[place] [phone] Monocytes/100 WBC Auto (Bld) 7.2 % Normal [facility] Comment on above: Performed By: #### T SCR30 ####[place] [phone] Neutrophils/100 WBC Auto (Bld) 86.3 % Normal [facility] Comment on above: Performed By: #### T SCR30 ####[place] [phone] Platelet mean volume Auto Entitic volume (Bld) <> Normal 9.0-12.7 [facility] Comment on above: Performed By: #### T SCR30 ####[place] [phone] Platelets Auto #/vol (Bld) 77 10*3/uL Low 150-400 [facility] Comment on above: Result Comment: Revi ewedSample checked for a clot. Performed By: #### T SCR30 ####[place] [phone] RBC Auto #/vol (Bld) 4.41 10*6/uL Normal 4.20-6.00 [facility] Comment on above: Performed By: #### T SCR30 ####[place] [phone] WBC Auto #/vol (Bld) 9.55 10*3/uL Normal 3.70-11.00 [facility] Comment on above: Performed By: #### T SCR30 ####[place] [phone] HISTORY PHYSICALon 8 HISTORY PHYSICAL HNO ID: [id number]: Jason Galvez (Res) JoseService: ColorectalAuthor Type: ResidentType: [...] changes.This HANDP can be found in the [facility] L5 discectomy.SIGNATURE: Jason Garcia MD PATIENT NAME: Ruth SmithDATE: April 23, 2018 : 10:09 AM PAGER: [facility] Magnesiumon 04-23-2018 Magnesium mass conc 1.4 mg/dL Low 1.7-2.6 [facility] Comment on above: Performed By: #### T SCR30 ####[facility] [place], [place] [phone] NURSING PROGon 04-23-2018 Protein mass conc HNO ID: [id number]: Azul Salgado) Brisa Tobarice: (none)Author Type: Registered NurseType: Nursing Progress NoteFiled: 04/23/2018 9:43 PMNote Text: Nursing Progress NotePatient Name: Ruth SmithMRN: [id number] Location: [place] [address]/[id number]____ Daily Note: Text page sent to [facility] regarding pt Mg level of 1.4 thisevening. Will await further orders. Safety maintained and call lightwithin reach. Will continue to monitor.This note was completed by: Azul Tobar RN [facility] Protein mass conc HNO ID: [id number]: Bentley SalgadoBrisa Ortizice: (none)Author Type: Registered NurseType: Nursing Progress NoteFiled: 04/23/2018 7:17 PMNote Text: Nursing Progress NotePatient Name: Ruth SmithMRN: [id number] Location: /[id number]____ Daily Note:04/23/181814- Patient arrived to room 303 from PACU atapproximately 1814, his grandparents are at bedside. Patient is alert andoriented times three, complaining of 10/10 pain and grunting. SCARFING MACHINE OPERATOR hasbeen ordered but not started. Called for a SCARFING MACHINE OPERATOR pump. Started fluids perorders. Hand grasps and [...] within reach.This note was completed by: Bentley Tohmpson RN [facility] Protein mass conc HNO ID: [id number]: Brennen (Rn) Brisa Beyice: NursingAuthor Type: Registered NurseType: Nursing Progress NoteFiled: 04/23/2018 12:13 PMNote Text: Nursing Progress NotePatient Name: Ruth SmithMRN: [id number] Location: [facility] OR POOL/FV OR POOL Daily Note:Patient's family updated at 11:42 am about status of procedureper Dr. Higgins note was completed by: Brennen Bey RN Normal [facility] OPERATIVE NOon 04-23-2018 OPERATIVE NO HNO ID: [id number]: Des Pyle Allyrvice: ColorectalAuthor Type: PhysicianType: Operative ReportFiled: 04/24/2018 9:26 PMNote Text:[facility] - Operative ReportHENMEJIA HERNANDEZB: 1970 AGE: 47 SEX: MMRN: [id number] CSN: [id number] SVC: GENS LOCATION: [id number] PHYSICIAN: Des Flores M.D.DATE OF PROCEDURE: 04/23/2018PREOPERATIVE DIAGNOSIS: T1 colon cancer.POSTOPERATIVE DIAGNOSIS: Same.NAME OF OPERATION: Laparoscopic left hemicolectomy.SURGEON: Des Flores M.D.PHOTOGRAPHER: Vonda Fleming.ANESTHESIA:EBL: 10.IV FLUIDS: Per Anesthesia.INDICATIONS: The [...] colonic ends in close proximityand did a qfey-zq-tcgd anastomosis with the aid of a blue stapler andclosed the common enterotomy with a TA 90 stapler. 0 Vicryl was used atthe crotch of the anastomosis to oversew the TA line.He was then transferred to Recovery in good condition.Des Flores M.D.SurgeryBC:[id number]: 04/23/2018 18:49:02T: 04/24/2018 04:56:25Job #: [id number] [facility] PROGRESSon 04-23-2018 Protein mass conc HNO ID: [id number]: Stoney (Res) HarlanirService: ColorectalAuthor Type: ResidentType: Progress NotesFiled: 04/23/2018 8:12 PMNote Text: Surgery Post-Op CheckName: Ruth SmithMRN: [id number] 0 s/p laparoscopic hand assisted sigmoid colectomy, with side to sidestapled colorectal anastomosisSUBJECTIVE:-P atient doing well-Pain present, advised on SCARFING MACHINE OPERATOR use-Denies fevers, chills, chest pain, shortness of [...] managed on current regimen.-Continue routine post-op care EVELINE Storm-1 General SurgeryPager [phone], Oowefbbcs 2017, 7:36 PM 6pm to 6 am, and on weekends, please page general surgery on-call [phone] [facility] PT EDon 04-23-2018 PT ED HNO ID: [id number]: Padmini (Rn) Fortino RNService: NursingAuthor Type: Registered NurseType: Patient EducationFiled: 04/23/2018 8:42 AMNote Text:PATIENT EDUCATION TOPIC: PROCEDURE / SURGERY: Pre-op Teaching:ProtocolsPATIEN T NAME: Ruth SmithMRN: [id number] LOCATION: [facility] OR POOL/FV OR POOLREADINESS TO [...] NoneREFERRAL (RECOMMENDATION): NoneElectronically Signed By: Padmini Freitas, [id number]} [facility] Phosphoruson 04-23-2018 Phosphate mass conc 2.5 mg/dL Normal 2.5-4.5 [facility] Comment on above: Performed By: #### T SCR30 ####[facility] [place], [place] [phone] SURGICAL PATHOLOGYon 018 SURGICAL PATHOLOGY [facility]: [id number] Physician: DES FLORES MD ____FINAL DIAGNOSIS1. Omentum, omentectomy (A) - Benign fibroadipose tissue.2. Left colon, resection (B) - Tattoo ink and focal foreign body giant cellreaction consistent with previous biopsy site, negative for residualinvasive adenocarcinoma (see synoptic report).- One tubular adenoma (see comment).- Thirteen lymph nodes, negative for malignancy (0/13).TRINIDAD/lelo 04/26/20186368XJAIEXW2. The margins are negative for dysplasia.SYNOPTIC REPORT [...] palpated. No masses or nodules are grosslyidentified. [employer] Mechan[employer] sections are submitted in two cassettes.B. Received [...] measuring up to 0.6 cm in greatestdimension. [employer] sections are submitted as follows: M3fpplucfmpfpwk blue margin first segment of bowel, B2 [...] submitted in relation to perpendicular red margin, C64ekvwbjskajvnz green margin second segment of bowel, B21 4 cm from bothmargins second segment of bowel, B22 rare adhesions serosal aspect secondsegment of bowel.NELIA/shabana 04/24/2018 Gross examination performed at [facility], [address] [place] [address] of Report: 04/26/2018Date of Procedure: 04/23/2018Date of Receipt: 04/24/2018Submitted by: DES FLROES MDLocation: [id number] interpretation performed at [facility], [address] [place] [address]. Normal [facility] Comment on above: Performed By: #### P ATHS ####[place] [address] Troponin Ton 04-23-2018 Troponin T.cardiac mass conc ug/L Normal 0.000-0.02 9 [facility] Comment on above: Performed By: #### T SCR30 ####[address] [place] [phone] NURSING PROGon 04-12-2018 Protein mass conc HNO ID: [id number]: Adry (Rn) DANIA Orrervice: NeurosurgeryAuthor Type: Registered NurseType: Nursing Progress NoteFiled: 04/12/2018 2:07 PMNote Text:PACC Nurse Progress NoteHistory AND Physical:PACC Visit Date: 9-06-62Wkbrnhit HANDP Date: N/AED visit Date: N/AOutside HANDP Scanned Date: N/ALabs Within Last 6 Months:BMP/CMP: Date 04-05 scannedImaging Within Last 12 Months:N/ACardiac Testing:EKG in last 12 Months: Yes: Date: 04-06-18, Comment: epicBMI Percentile (PEDS):N/ARisk Assessment:N/AAnesthesia Review:N/ANarrative:N/AP re-op Considerations:diabeticC knight Check:[facility] 2:06 PM Normal [facility] Confirm Blood Typeon 018 ABO/RH(D) Positive [facility] Comment on above: Performed By: #### C ONABO ####[address] [phone] Performed By: #### T SCR30 ####[address] [phone] Type and SCR (30D)on 018 Antibody Screen Negative [facility] Comment on above: Performed By: #### T SCR30 ####[address] [phone] HOSPon 03-21-2018 HOSP Patient:Ava Smith: Height:6' 0 (1.829 m)Weight:259 lb (117.482 [...] 51.6 % 04/06/2018 51.0 39.0Progress Notes ([facility]):Hannah Zaragoza Psr 04/19/2018 9:08 AM SignedPatient called with pre-operative questions [phone] Garcia, RN, RN 04/19/2018 2:23 PM SignedCall returned. Reviewed prep questions and recovery question with patient.Patient verbalized understanding and will call office with any additionalquestions or concerns.Progress Notes ([facility]Jun Arriola DO 03/31/2018 5:29 PM SignedPATIENT NAME: Ruth SmithMRN: [id number] PHYSICIAN: Jeff Mandel Jr, DO[address] [address]YTMHRJI CARE PHYSICIAN: No primary care provider on [...] PNL-ABS GRAN CT + CBC (FOR REMOTE [facility] USE)-HEPATIC FUNCTION PNL-CEA BLD Return in [...] I answered all questionssatisfactorily. .Ander Arriola D.O.Medical OncologistDayton Children[facility] Hospital SURGICAL PATHOLOGYon 018 SURGICAL PATHOLOGY Specimen #: [id number] Physician: MOIRA ELIZONDO M.D. FINAL DIAGNOSISHume, [place]; [phone] (02/22/2018)1. Cecum, polyp, polypectomy (A) - Tubular [...] hesitate tocontact the GI Consultation Service at [phone] with questions or ifadditional follow up information becomes available. This case was reviewedin conjunction with the GI pathology fellow, Yvonne Santiago M.D., MSc.JRG/CF/lh/03-14-2018Jo anyi Sterling M.D.(Electronic Signature) SPECIMEN SUBMITTEDA: 6 SLIDES [id number] (A, B) CLINICAL DATAAbdominal pain.Patient ID #: Date of Report: 03/14/2018Date of Procedure: 03/13/2018Date of Receipt: 03/13/2018Submitted by: MOIRA ELIZONDO M.D.Location: Diagnostic interpretation performed at [facility], [address] [place] [address]. Normal [facility] Comment on above: Performed By: #### S ####See report for performing lab information. Vital Signs Date Time Vital Sign Value Performing Clinician Faci lity 03-24-2025 12:25-040 Body height 185.4 cm Marc Alves MD Work Phone: [facility] 03-24-2025 12:25-0400 Body mass index (BMI) [Ratio] 30.34 kg/m2 Marc Alves MD Work Phone: [facility] 03-24-2025 12:25-0400 Body weight 104.33 kg Marc Alves MD Work Phone: [facility] 03-24-2025 12:25-0400 Diastolic blood pressure 84 mm[Hg] Marc Alves MD Work Phone: [facility] 03-24-2025 12:25-0400 Heart rate 90 /min Marc Alves MD Work Phone: [facility] 03-24-2025 12:25-0400 Systolic blood pressure 142 mm[Hg] Marc Avles MD Work Phone: [facility] 02-21-2025 14:35-0400 Diastolic blood pressure 91 mm[Hg] Alistair Mcnally MD Work Phone: [facility] 02-21-2025 14:35-0400 Heart rate 98 /min Alistair Mcnally MD Work Phone: [facility] 02-21-2025 14:35-0400 Respiratory rate 16 /min Alistair Mcnally MD Work Phone: [facility] 02-21-2025 14:35-0400 Systolic blood pressure 146 mm[Hg] Alistair Mcnally MD Work Phone: [facility] 02-20-2025 14:40-0400 Body height 185.4 cm Zac Crouch MD Work Phone: [facility] 02-20-2025 14:40-0400 Body mass index (BMI) [Ratio] 31.48 kg/m2 Zac Crouch MD Work Phone: [facility] 02-20-2025 14:40-0400 Body temperature 97.59 [degF] Zac Crouch MD Work Phone: [facility] 02-20-2025 14:40-0400 Body weight 108.2 kg Zac Crouch MD Work Phone: [facility] 02-20-2025 14:40-0400 Diastolic blood pressure 82 mm[Hg] Zac Crouch MD Work Phone: [facility] 02-20-2025 14:40-0400 Heart rate 91 /min Zac Crouch MD Work Phone: [facility] 02-20-2025 14:40-0400 Respiratory rate 16 /min Zac Crouch MD Work Phone: [facility] 02-20-2025 14:40-0400 SaO2% (BldA) [Mass fraction] 100 % Zac Crouch MD Work Phone: [facility] 02-20-2025 14:40-0400 Systolic blood pressure 120 mm[Hg] Zac Crouch MD Work Phone: [facility] 01-15-2025 13:30-0400 Body height 185.4 cm [facility] 01-15-2025 13:30-0400 Body mass index (BMI) [Ratio] 30.34 kg/m2 [facility] 01-15-2025 13:30-0400 Body weight 104.33 kg [facility] 12-05-2024 13:33-0400 Body height 185.42 cm [facility] 12-05-2024 13:33-0400 Body mass index (BMI) [Ratio] 32.3 kg/m2 [facility] 12-05-2024 13:33-0400 Body weight 111 kg [facility] 12-05-2024 13:33-0400 Diastolic blood pressure 113 mm[Hg] [facility] 12-05-2024 13:33-0400 Heart rate 95 /min [facility] 12-05-2024 13:33-0400 Systolic blood pressure 183 mm[Hg] [facility] 12-04-2024 15:30-0400 Body height 185.4 cm Vivek GASPAR Work Phone: [facility] 12-04-2024 15:30-0400 Body mass index (BMI) [Ratio] 29.42 kg/m2 Vivek GASPAR Work Phone: [facility] 12-04-2024 15:30-0400 Body weight 101.15 kg Vivek Gillis PA Work Phone: [facility] 12-04-2024 15:30-0400 Diastolic blood pressure 81 mm[Hg] Vivek Gillis PA Work Phone: [facility] 12-04-2024 15:30-0400 Heart rate 108 /min Vivek Gillis PA Work Phone: [facility] 12-04-2024 15:30-0400 Systolic blood pressure 131 mm[Hg] Vivek Gillis PA Work Phone: [facility] 11-28-2024 15:42-0400 Body mass index (BMI) [Ratio] 30.54 kg/m2 Zac Crouch MD Work Phone: [facility] 11-28-2024 15:42-0400 Body temperature 97.9 [degF] Zac Crouch MD Work Phone: [facility] 11-28-2024 15:42-0400 Body weight 105 kg Zac Crouch MD Work Phone: [facility] 11-28-2024 15:42-0400 Diastolic blood pressure 83 mm[Hg] Zac Crouch MD Work Phone: [facility] 11-28-2024 15:42-0400 Heart rate 91 /min Zac Crouch MD Work Phone: [facility] 11-28-2024 15:42-0400 Respiratory rate 18 /min Zac Crouch MD Work Phone: [facility] 11-28-2024 15:42-0400 SaO2% (BldA) [Mass fraction] 99 % Zac Crouch MD Work Phone: [facility] 11-28-2024 15:42-0400 Systolic blood pressure 143 mm[Hg] Zac Crouch MD Work Phone: [facility] 11-22-2024 13:45-0400 Body height 185.4 cm Abrahan Rinaldi MD Work Phone: [facility] 11-22-2024 13:45-0400 Body mass index (BMI) [Ratio] 29.69 kg/m2 Abrahan Rinaldi MD Work Phone: [facility] 11-22-2024 13:45-0400 Body weight 102.06 kg Abrahan Rinaldi MD Work Phone: [facility] 11-22-2024 13:45-0400 Heart rate 110 /min Abrahan Rinaldi MD Work Phone: [facility] 11-22-2024 13:45-0400 SaO2% (BldA) [Mass fraction] 98 % Abrahan Rinaldi MD Work Phone: [facility] 08-27-2024 06:41-0500 Body height 185.42 cm Francisca Wade MD Work Phone: [facility] 08-27-2024 06:41-0500 Body weight 111.13 kg Francisca Wade MD Work Phone: [facility] 07-25-2024 13:42-0500 Body height 185.4 cm Marcell Kraft MD Work Phone: [facility] 07-25-2024 13:42-0500 Body mass index (BMI) [Ratio] 33.65 kg/m2 Marcell Kraft MD Work Phone: [facility] 07-25-2024 13:42-0500 Body temperature 98.01 [degF] Marcell Kraft MD Work Phone: [facility] 07-25-2024 13:42-0500 Body weight 115.7 kg Marcell Kraft MD Work Phone: [facility] 07-18-2024 10:53-0500 Body height 185.4 cm Marcell LOZA Work Phone: [facility] 07-18-2024 10:53-0500 Body mass index (BMI) [Ratio] 33.64 kg/m2 Marcell Guevaragler PEDIATRIC ONCOLOGY NURSE-OPTICAL ENGINEER Work Phone: [facility] 07-18-2024 10:53-0500 Body weight 115.67 kg Marcell Shahzadrgler PEDIATRIC ONCOLOGY NURSE-OPTICAL ENGINEER Work Phone: [facility] 07-18-2024 10:53-0500 Diastolic blood pressure 98 mm[Hg] Marcell Ismaelgler PEDIATRIC ONCOLOGY NURSE-OPTICAL ENGINEER Work Phone: [facility] 07-18-2024 10:53-0500 Heart rate 99 /min Marcell Shahzadrgler PEDIATRIC ONCOLOGY NURSE-OPTICAL ENGINEER Work Phone: [facility] 07-18-2024 10:53-0500 Systolic blood pressure 172 mm[Hg] Marcell Ismaelgler PEDIATRIC ONCOLOGY NURSE-OPTICAL ENGINEER Work Phone: [facility] 06-20-2024 14:22-0500 Body height 185.4 cm Ang Figueroa MD Work Phone: [facility] 06-20-2024 14:22-0500 Body mass index (BMI) [Ratio] 32.98 kg/m2 Ang Figueroa MD Work Phone: [facility] 06-20-2024 14:22-0500 Body temperature 96.8 [degF] Ang Figueroa MD Work Phone: [facility] 06-20-2024 14:22-0500 Body weight 113.4 kg Ang Figueroa MD Work Phone: [facility] 06-05-2024 13:28-0400 Body height 185.42 cm [facility] 06-05-2024 13:28-0400 Body mass index (BMI) [Ratio] 33 kg/m2 [facility] 06-05-2024 13:28-0400 Body weight 113.39 kg [facility] 06-05-2024 13:28-0400 Diastolic blood pressure 94 mm[Hg] [facility] 06-05-2024 13:28-0400 Heart rate 90 /min [facility] 06-05-2024 13:28-0400 Systolic blood pressure 140 mm[Hg] [facility] 04-18-2024 13:24-0400 Body height 185.4 cm Ang Figueroa MD Work Phone: [facility] 04-18-2024 13:24-0400 Body mass index (BMI) [Ratio] 33.39 kg/m2 Ang Figueroa MD Work Phone: [facility] 04-18-2024 13:24-0400 Body temperature 96.91 [degF] Ang Figueroa MD Work Phone: [facility] 04-18-2024 13:24-0400 Body weight 114.8 kg Ang Figueroa MD Work Phone: [facility] 04-02-2024 12:58-0400 Body height 185.4 cm Kaye Nienberg PEDIATRIC ONCOLOGY NURSE-OPTICAL ENGINEER Work Phone: [facility] 04-02-2024 12:58-0400 Body mass index (BMI) [Ratio] 33.38 kg/m2 Kaye Nienberg PEDIATRIC ONCOLOGY NURSE-OPTICAL ENGINEER Work Phone: [facility] 04-02-2024 12:58-0400 Body weight 114.76 kg Kaye Nienberg PEDIATRIC ONCOLOGY NURSE-OPTICAL ENGINEER Work Phone: [facility] 04-02-2024 12:58-0400 Diastolic blood pressure 83 mm[Hg] Kaye Nienberg PEDIATRIC ONCOLOGY NURSE-OPTICAL ENGINEER Work Phone: [facility] 04-02-2024 12:58-0400 Heart rate 100 /min Kaye Nienberg PEDIATRIC ONCOLOGY NURSE-OPTICAL ENGINEER Work Phone: [facility] 04-02-2024 12:58-0400 Respiratory rate 18 /min Kaye Nienberg PEDIATRIC ONCOLOGY NURSE-OPTICAL ENGINEER Work Phone: [facility] 04-02-2024 12:58-0400 SaO2% (BldA) [Mass fraction] 98 % Kaye Sauceda PEDIATRIC ONCOLOGY NURSE-OPTICAL ENGINEER Work Phone: [facility] 04-02-2024 12:58-0400 Systolic blood pressure 157 mm[Hg] Kaye Sauceda PEDIATRIC ONCOLOGY NURSE-OPTICAL ENGINEER Work Phone: [facility] 03-14-2024 13:08-0400 Body height 185.4 cm Rehana Poslaiko PA-C Work Phone: [facility] 03-14-2024 13:08-0400 Body mass index (BMI) [Ratio] 33.25 kg/m2 Rehana Poslaiko PA-C Work Phone: [facility] 03-14-2024 13:08-0400 Body temperature 97.7 [degF] Rehana Poslaiko PA-C Work Phone: [facility] 03-14-2024 13:08-0400 Body weight 114.31 kg Rehana Poslaiko PA-C Work Phone: [facility] 02-28-2024 13:01-0400 Body height 185.42 cm [facility] 02-28-2024 13:01-0400 Body mass index (BMI) [Ratio] 32.5 kg/m2 [facility] 02-28-2024 13:01-0400 Body weight 112.03 kg [facility] 02-22-2024 13:03-0400 Body height 185.4 cm Ang Figueroa MD Work Phone: [facility] 02-22-2024 13:03-0400 Body mass index (BMI) [Ratio] 33.31 kg/m2 Ang Figueroa MD Work Phone: [facility] 02-22-2024 13:03-0400 Body temperature 98.4 [degF] Ang Figueroa MD Work Phone: [facility] 02-22-2024 13:03-0400 Body weight 114.5 kg Ang Figueroa MD Work Phone: [facility] [employer] [facility] 02-03-2024 08:17-0400 Body temperature 98.29 [degF] Leatha Saldivar MD Work Phone: [facility] 02-03-2024 08:17-0400 Diastolic blood pressure 69 mm[Hg] Leatha Saldivar MD Work Phone: [facility] 02-03-2024 08:17-0400 Heart rate 79 /min Leatha Saldivar MD Work Phone: [facility] 02-03-2024 08:17-0400 Respiratory rate 14 /min Leatha Saldivar MD Work Phone: [facility] 02-03-2024 08:17-0400 SaO2% (BldA) [Mass fraction] 98 % Leatha Saldivar MD Work Phone: [facility] 02-03-2024 08:17-0400 Systolic blood pressure 127 mm[Hg] Leatha Saldivar MD Work Phone: [facility] 02-01-2024 00:31-0400 Body mass index (BMI) [Ratio] 32.61 kg/m2 Leatha Saldivar MD Work Phone: [facility] 02-01-2024 00:31-0400 Body weight 112.1 kg Leatha Saldivar MD Work Phone: [facility] 01-29-2024 11:12-0400 Body height 185.4 cm Leatha Saldivar MD Work Phone: [facility] 01-22-2024 15:16-0400 Body temperature 97.7 [degF] Abad Diallo DO Work Phone: [facility] [employer] [facility] 01-22-2024 15:16-0400 Diastolic blood pressure 88 mm[Hg] Abad Diallo DO Work Phone: [facility] [employer] [facility] 01-22-2024 15:16-0400 Heart rate 87 /min Mahammad Imain DO Work Phone: [facility] [employer] [facility] 01-22-2024 15:16-0400 Respiratory rate 18 /min Mahammad Imani DO Work Phone: [facility] [employer] [facility] 01-22-2024 15:16-0400 SaO2% (BldA) [Mass fraction] 94 % Mahammad Imani DO Work Phone: [facility] 01-22-2024 15:16-0400 Systolic blood pressure 126 mm[Hg] Mahammad Imani DO Work Phone: [facility] [employer] [facility] 01-21-2024 23:28-0400 Body mass index (BMI) [Ratio] 34.47 kg/m2 Mahammad Imani DO Work Phone: [facility] 01-21-2024 23:28-0400 Body weight 118.5 kg Mahammad Imani DO Work Phone: [facility] 01-18-2024 10:49-0400 Body height 185.4 cm Mahammad Imani DO Work Phone: [facility] [employer] [facility] 12-01-2023 10:41-0400 Body height 185.42 cm LUIS Du Work Phone: [facility] 12-01-2023 10:41-0400 Body mass index (BMI) [Ratio] 33.7 kg/m2 LUIS Du Work Phone: [facility] 12-01-2023 10:41-0400 Body weight 116.11 kg LUIS Du Work Phone: [facility] 11-13-2023 09:22-0400 Diastolic blood pressure 101 mm[Hg] LUIS Du Work Phone: [facility] 11-13-2023 09:22-0400 Heart rate 88 /min LUIS Du Work Phone: [facility] 11-13-2023 09:22-0400 Respiratory rate 16 /min PA-C Jd Du Work Phone: [facility] 11-13-2023 09:22-0400 SaO2% (BldA) [Mass fraction] 97 % PA-C Jd Du Work Phone: [facility] 11-13-2023 09:22-0400 Systolic blood pressure 178 mm[Hg] PA-C Jd Du Work Phone: [facility] 11-13-2023 09:16-0400 Body height 185.42 cm PA-C Jd Du Work Phone: [facility] 11-13-2023 09:16-0400 Body weight 117.93 kg PA-C Jd Du Work Phone: [facility] 11-01-2023 14:35-0400 Body temperature 97.8 [degF] PA-C Jd Du Work Phone: [facility] 11-01-2023 14:35-0400 Diastolic blood pressure 88 mm[Hg] PA-C Jd Du Work Phone: [facility] 11-01-2023 14:35-0400 Heart rate 100 /min HUBERT-C Jd Du Work Phone: [facility] 11-01-2023 14:35-0400 Respiratory rate 16 /min PAKatherin Du Work Phone: [facility] 11-01-2023 14:35-0400 SaO2% (BldA) [Mass fraction] 96 % PA-C Jd Du Work Phone: [facility] 11-01-2023 14:35-0400 Systolic blood pressure 170 mm[Hg] PA-C Jd Du Work Phone: [facility] 11-01-2023 11:29-0400 Body height 185.42 cm PA-Venu Du Work Phone: [facility] 11-01-2023 11:29-0400 Body weight 118 kg PA-C Jd Du Work Phone: [facility] 08-10-2023 14:45-0500 Body height 185.42 cm PA-C Jd Du Work Phone: [facility] 08-10-2023 14:45-0500 Body weight 117.93 kg PA-C Jd Du Work Phone: [facility] 08-10-2023 14:45-0500 Diastolic blood pressure 96 mm[Hg] PA-C Jd Du Work Phone: [facility] 08-10-2023 14:45-0500 Systolic blood pressure 149 mm[Hg] PA-C Jd Du Work Phone: [facility] 04-24-2023 11:02-0400 Diastolic blood pressure 98 mm[Hg] PA-Venu Du Work Phone: [facility] 04-24-2023 11:02-0400 Heart rate 78 /min HUBERT-Venu Du Work Phone: [facility] 04-24-2023 11:02-0400 Respiratory rate 18 /min PA-Venu Du Work Phone: [facility] 04-24-2023 11:02-0400 SaO2% (BldA) [Mass fraction] 98 % LUIS Du Work Phone: [facility] 04-24-2023 11:02-0400 Systolic blood pressure 141 mm[Hg] PA-Venu Du Work Phone: [facility] 04-24-2023 10:55-0400 Body height 185.42 cm PA-C Jd Du Work Phone: [facility] 04-24-2023 10:55-0400 Body weight 114.3 kg HUBERT-Venu Du Work Phone: [facility] 03-21-2023 13:56-0400 Diastolic blood pressure 89 mm[Hg] HUBERT-Venu Du Work Phone: [facility] 03-21-2023 13:56-0400 Heart rate 82 /min LUIS Du Work Phone: [facility] 03-21-2023 13:56-0400 Respiratory rate 14 /min LUIS Du Work Phone: [facility] 03-21-2023 13:56-0400 SaO2% (BldA) [Mass fraction] 95 % LUIS Du Work Phone: [facility] 03-21-2023 13:56-0400 Systolic blood pressure 129 mm[Hg] LUIS Du Work Phone: [facility] 03-21-2023 12:23-0400 Body height 185.42 cm LUIS Du Work Phone: [facility] 03-21-2023 12:23-0400 Body temperature 98.2 [degF] LUIS Du Work Phone: [facility] 03-21-2023 12:23-0400 Body weight 115.66 kg LUIS Du Work Phone: [facility] 03-01-2023 15:15-0400 Body height Guillermo Thornton Other [employer] [facility] [employer] Other 03-01-2023 15:15-0400 Body mass index (BMI) [Ratio] 32.98 kg/m2 Guillermo Thornton Other [employer] Other 03-01-2023 15:15-0400 Body weight 113.4 kg Guillermo Thornton Other [employer] Other 03-01-2023 15:15-0400 Diastolic blood pressure 107 mm[Hg] Guillermo Thornton Other [employer] Other 03-01-2023 15:15-0400 Systolic blood pressure 145 mm[Hg] Guillermo Thornton Other [employer] Other 08-24-2022 12:00-0500 Body height Sugar Knight Other [employer] Other 08-24-2022 12:00-0500 Body mass index (BMI) [Ratio] 33.69 kg/m2 Sugar Knight Other [employer] Other 08-24-2022 12:00-0500 Body weight 115.85 kg Sugar Knight Other [employer] Other 08-24-2022 12:00-0500 Diastolic blood pressure 108 mm[Hg] Sugar Knight Other [employer] Other 08-24-2022 12:00-0500 Respiratory rate 20 /min Sugar Knight Other [employer] Other 08-24-2022 12:00-0500 SaO2% (BldA) [Mass fraction] 98 % Sugar Knight Other [employer] Other 08-24-2022 12:00-0500 Systolic blood pressure 176 mm[Hg] Sugar Knight Other [employer] Other 08-03-2022 12:34-0500 Diastolic blood pressure 86 mm[Hg] ULIS Du Work Phone: [facility] 08-03-2022 12:34-0500 Heart rate 81 /min LUIS Du Work Phone: [facility] 08-03-2022 12:34-0500 Respiratory rate 20 /min LUIS Du Work Phone: [facility] 08-03-2022 12:34-0500 SaO2% (BldA) [Mass fraction] 95 % LUIS Du Work Phone: [facility] 08-03-2022 12:34-0500 Systolic blood pressure 134 mm[Hg] LUIS Du Work Phone: [facility] 08-03-2022 11:51-0500 Inhaled oxygen flow rate 3 L/min LUIS Du Work Phone: [facility] 08-03-2022 10:54-0500 Body height 185.42 cm LUIS Du Work Phone: [facility] 08-03-2022 10:54-0500 Body weight 117.93 kg LUIS Du Work Phone: [facility] 07-28-2022 10:30-0500 Body height Sugar Knight Other [employer] Other 07-28-2022 10:30-0500 Body mass index (BMI) [Ratio] 34.96 kg/m2 Sugar Knight Other [employer] Other 07-28-2022 10:30-0500 Body weight 120.2 kg Sugar Knight Other [employer] Other 07-28-2022 10:30-0500 Diastolic blood pressure 100 mm[Hg] Sugar Knight Other [employer] Other 07-28-2022 10:30-0500 Systolic blood pressure 150 mm[Hg] Sugar Knight Other [employer] Other 06-01-2022 12:42-0400 Diastolic blood pressure 93 mm[Hg] LUIS Du Work Phone: [facility] 06-01-2022 12:42-0400 Heart rate 93 /min LUIS Du Work Phone: [facility] 06-01-2022 12:42-0400 Respiratory rate 20 /min LUIS Du Work Phone: [facility] 06-01-2022 12:42-0400 SaO2% (BldA) [Mass fraction] 94 % LUIS Du Work Phone: [facility] 06-01-2022 12:42-0400 Systolic blood pressure 156 mm[Hg] LUIS Du Work Phone: [facility] 06-01-2022 12:07-0400 Inhaled oxygen flow rate 3 L/min LUIS Du Work Phone: [facility] 06-01-2022 11:17-0400 Body height 185.42 cm LUIS Du Work Phone: [facility] 06-01-2022 11:17-0400 Body weight 117.93 kg LUIS Du Work Phone: [facility] 04-27-2022 17:45-0400 Body height Asa Moeller Other [employer] [facility] [employer] Other 04-27-2022 17:45-0400 Body mass index (BMI) [Ratio] 34.72 kg/m2 Asa Moeller Other [employer] Other 04-27-2022 17:45-0400 Body weight 119.39 kg Asa Moeller Other [employer] Other 04-27-2022 17:45-0400 SaO2% (BldA) [Mass fraction] 96 % Asa Moeller Other [employer] Other 04-15-2022 14:08-0400 Diastolic blood pressure 99 mm[Hg] LUIS Du Work Phone: [facility] 04-15-2022 14:08-0400 Heart rate 82 /min PA-C Jd Du Work Phone: [facility] 04-15-2022 14:08-0400 Respiratory rate 20 /min PA-C Jd Du Work Phone: [facility] 04-15-2022 14:08-0400 SaO2% (BldA) [Mass fraction] 96 % PA-C Jd Du Work Phone: [facility] 04-15-2022 14:08-0400 Systolic blood pressure 170 mm[Hg] PA-C Jd Du Work Phone: [facility] 04-15-2022 14:06-0400 Body height 185.42 cm PA-C Jd Du Work Phone: [facility] 04-15-2022 14:06-0400 Body weight 117.02 kg PA-C Jd Du Work Phone: [facility] 03-31-2022 16:00-0400 Body height Asa Sajan Other [employer] [facility] [employer] Other 03-31-2022 16:00-0400 Body mass index (BMI) [Ratio] 34.43 kg/m2 Asa Moeller Other [employer] Other 03-31-2022 16:00-0400 Body weight 118.39 kg Asa Moeller Other [employer] Other 03-31-2022 16:00-0400 SaO2% (BldA) [Mass fraction] 98 % Asa Moeller Other [employer] Other 12-20-2021 16:15-0400 Body height Bird Slade Other [employer] Other 12-20-2021 16:15-0400 Body mass index (BMI) [Ratio] 34.56 kg/m2 Bird Slade Other [employer] Other 12-20-2021 16:15-0400 Body weight 118.84 kg Bird Yany Other [employer] Other 08-25-2021 16:15-0500 Body height Jeff Mandel Other [employer] Other 08-25-2021 16:15-0500 Body mass index (BMI) [Ratio] 34.56 kg/m2 Jeff Borgesflora Other [employer] Other 08-25-2021 16:15-0500 Body weight 118.84 kg Jeff Mandel Other [employer] Other 08-23-2021 16:30-0500 Body height Bird Elskacy Other [employer] Other 08-23-2021 16:30-0500 Body mass index (BMI) [Ratio] 34.56 kg/m2 Bird Slade Other [employer] Other 08-23-2021 16:30-0500 Body weight 118.84 kg Bird Slade Other [employer] Other Encounters Encounter Date Encounter Type Care Provider Facility Start: 05-12-2025 End: 05-12-2025 ambulatory JESSY MTZ Facility:[facility] Start: 05-05-2025 End: 05-05-2025 [facility] Start: 05-02-2025 End: 05-02-2025 ambulatory NOHEMY RAMIREZ Facility:[facility] Start: 04-28-2025 End: 04-28-2025 ambulatory ALISTAIR MCNALLY [facility] Start: 04-01-2025 End: 04-01-2025 Telemedicine consultation with [...] 15 minutes Marc Alves MD Work Phone: [facility] Comment on above: Difficulty urinating (Primary Dx) Start: 03-24-2025 End: 03-24-2025 Social Work Ashley Lema [facility] Hematology/Oncology Start: 03-20-2025 ambulatory VIVEK Trevor GILLIS [facility] Start: 03-19-2025 End: 03-19-2025 ambulatory NOHEMY MEAGHAN Facility:[facility] Start: 02-21-2025 End: 02-21-2025 Office outpatient visit 25 minutes Alistair Mcnally MD Work Phone: Pain Management Comment on above: Radiculopathy, lumba r region; Diabetic peripheral neuropathy (HCC); Thrombocytopenia; History of total right hip replacement; H/O lumbar discectomy; Polyneuropathy Start: 02-21-2025 End: 02-21-2025 Social Work Ashley Lema [facility] Hematology/Oncology Start: 02-20-2025 End: 02-20-2025 ambulatory FRANCISCA MAURO Facility:[facility] Start: 02-20-2025 End: 02-20-2025 Office outpatient visit 15 minutes Zac Crouch MD Work Phone: Hematology/Oncology Comment on above: Thrombocytopenia (Pr imary Dx); Malignant neoplasm of colon, unspecified part of colon (HCC); Elevated carcinoembryonic antigen (CEA) Start: 01-29-2025 End: 01-29-2025 Telephone encounter Marc Alves MD Work Phone: [facility] Start: 01-29-2025 End: 01-29-2025 Evaluation and management of inpatient MARC ALVES [facility] Start: 01-15-2025 End: 01-15-2025 Patient encounter procedure [facility] Pre-Admission Testing 2 [facility] - Pre Admit Comment on above: Preop examination (P rimary Dx); Hypertension, unspecified type; Type 2 diabetes mellitus with other circulatory complication, with long-term current use of insulin ([facility]-HCC) Start: 01-15-2025 End: 01-15-2025 Preprocedural examination done Pm 2 [facility] Start: 01-15-2025 End: 01-15-2025 ambulatory JEFF Andrade ARNOLD [facility] Start: 01-15-2025 Encounter for other preprocedural examination DIANE MCGRATH [facility] Start: 01-13-2025 End: 01-13-2025 Telemedicine consultation with patient Alistair Mcnally MD Work Phone: Pain Management Start: 01-13-2025 End: 01-13-2025 ambulatory Alistair Mcnally MD Work Phone: Pain Management Comment on above: Radiculopathy, lumba r region (Primary Dx); Diabetic peripheral neuropathy (HCC); Thrombocytopenia; History of total right hip replacement; H/O lumbar discectomy; Chronic pain syndrome Start: 12-30-2024 End: 12-30-2024 ambulatory Francisca Mauro Facility:[facility] Start: 12-26-2024 End: 12-26-2024 ambulatory Komal Hernadez APRN.OPTICAL ENGINEER Work Phone: Pain Management Comment on above: Questionnaire Karunais deejay Start: 12-26-2024 End: 12-26-2024 E-mail encounter from caregiver Komal Hernadez APRN.CNP Work Phone: Pain Management Start: 12-18-2024 End: 12-20-2024 Telephone encounter Abrahan Rinaldi MD Work Phone: Pain Management Comment on above: Pain Procedure Respo nse & follow up (Right L5-S1 Transforaminal Epidural Steroid injection # 1) Start: 12-16-2024 End: 12-16-2024 ambulatory ABRAHAN RINALDI Facility:[facility] Start: 12-12-2024 End: 12-12-2024 Patient encounter procedure Francisca Wade MD Work Phone: [facility] Work Phone: Start: 12-12-2024 End: 12-12-2024 ambulatory Francisca Wade MD Work Phone: [facility] Work Phone: Start: 12-05-2024 End: 12-05-2024 ambulatory [facility] Work Phone: Start: 12-05-2024 End: 12-05-2024 Patient encounter procedure [facility] Work Phone: Start: 12-04-2024 End: 12-04-2024 Office outpatient new 45 minutes Vivek GASPAR Work Phone: [facility] Comment on above: Benign prostatic hyp erplasia, unspecified whether lower urinary tract symptoms present (Primary Dx); Difficulty urinating Start: 12-04-2024 End: 12-04-2024 ambulatory VIVEK GILLIS [facility] Start: 12-02-2024 End: 12-02-2024 Telephone encounter Abrahan Rinaldi MD Work Phone: Ambulatory Surgery Comment on above: Schedule Injection Start: 11-28-2024 End: 11-28-2024 Office outpatient new 45 minutes Zac Crouch MD Work Phone: Hematology/Oncology Comment on above: Malignant neoplasm o f colon, unspecified part of colon (HCC) (Primary Dx); Thrombocytopenia Start: 11-28-2024 End: 11-28-2024 ambulatory ABRAHAN RINALDI Facility:[facility] Start: 11-25-2024 End: 11-25-2024 Telephone encounter Zac Crouch MD Work Phone: Hematology/Oncology Start: 11-22-2024 End: 11-22-2024 ambulatory ABRAHAN RINALDI Facility:[facility] Start: 11-22-2024 End: 11-22-2024 Patient encounter procedure [...] 11-12-2024 End: 11-12-2024 Emergency department patient visit [facility] Start: 11-08-2024 End: 11-08-2024 ambulatory JD DU Facility:[facility] Start: 11-08-2024 End: 11-08-2024 Telemedicine consultation with patient Martharafael Montoyaluzma MONTENEGROOPTICAL ENGINEER Work Phone: Telemedicine Comment on above: Acute right-sided lo w back pain with right-sided sciatica (Primary Dx) Start: 11-04-2024 End: 11-04-2024 ambulatory Winston Owens MD Facility:[facility] Start: 11-03-2024 End: 11-03-2024 Emergency department patient visit [facility] Start: 09-23-2024 End: 09-23-2024 ambulatory Winston Owens MD Facility:[facility] Start: 09-17-2024 End: 09-17-2024 Telephone encounter Hannah Josh [facility] Start: 09-04-2024 End: 09-04-2024 Refill Marcell Badillo APRN-OPTICAL ENGINEER Work Phone: [facility] Comment on above: Lumbar radiculopathy , chronic Lumbar radiculopathy , chronic (Primary Dx); History of lumbar surgery; Lumbar spondylosis; Bilateral hand pain Start: 08-28-2024 End: 08-28-2024 Refill Marcell Badillo PEDIATRIC ONCOLOGY NURSE-OPTICAL ENGINEER Work Phone: [facility] Comment on above: Lumbar radiculopathy , chronic Start: 08-27-2024 End: 08-27-2024 Patient encounter procedure Francisca Wade MD Work Phone: [facility] Work Phone: Start: 08-27-2024 End: 08-27-2024 ambulatory Francisca Wade MD Work Phone: [facility] Work Phone: Start: 08-21-2024 End: 08-21-2024 Refill Marcell Pikergler PEDIATRIC ONCOLOGY NURSE-OPTICAL ENGINEER Work Phone: [facility] Comment on above: Lumbar radiculopathy , chronic Start: 08-13-2024 End: 08-15-2024 Refill Marcell Guevaragler PEDIATRIC ONCOLOGY NURSE-OPTICAL ENGINEER Work Phone: [facility] Comment on above: Lumbar radiculopathy , chronic Start: 08-05-2024 End: 08-05-2024 Bamboo flowsheet Erick Naylor DO Work Phone: [facility] Start: 08-05-2024 End: 08-05-2024 Bamboo flowsheet Erick Naylor DO Work Phone: [facility] Start: 08-05-2024 End: 08-08-2024 Patient encounter procedure Erick Naylor DO Work Phone: [facility] Comment on above: Paresthesia (Primary Dx) Lumbar radiculopathy , chronic Start: 08-05-2024 End: 08-05-2024 ambulatory ERICK NAYLOR Not Available Start: 07-25-2024 End: 07-25-2024 Office outpatient visit 25 minutes Marcell Kraft MD Work Phone: [facility] Comment on above: Trochanteric bursiti s of right hip (Primary Dx) Start: 07-25-2024 End: 07-25-2024 ambulatory ANG FIGUEROA [facility] Start: 07-24-2024 End: 07-24-2024 Refill Laura Mcgregor [facility] Comment on above: Lumbar radiculopathy , chronic Start: 07-18-2024 End: 07-18-2024 Office outpatient new 60 minutes Marcell LOZA Work Phone: [facility] Comment on above: Lumbar radiculopathy , chronic (Primary Dx); Left cervical radiculopathy; Bilateral hand pain; Bilateral hand numbness; Lumbar spondylosis; Cervical spondylosis; Chronic midline low back pain without sciatica; History of lumbar surgery; Anxiety Start: 07-18-2024 End: 07-18-2024 ambulatory [facility] Start: 07-16-2024 End: 07-16-2024 ambulatory [facility] Start: 07-09-2024 End: 07-09-2024 Orders Only [facility] Comment on above: Closed displaced int ertrochanteric fracture of right femur with routine healing, subsequent encounter (Primary Dx) Start: 07-02-2024 End: 07-02-2024 Orders Only Laura Mcgregor [facility] Comment on above: Back pain, unspecifi ed back location, unspecified back pain laterality, unspecified chronicity (Primary Dx) Start: 06-20-2024 End: 06-20-2024 Office outpatient visit 25 minutes Ang Figueroa MD Work Phone: [facility] Comment on above: Right knee pain, uns pecified chronicity (Primary Dx) Start: 06-20-2024 End: 06-20-2024 ambulatory ANG FIGUEROA [facility] Start: 06-17-2024 End: 06-17-2024 Orders Only Connie Corbin RN [facility]/Trauma [facility] Adult Reconstruction Comment on above: Right knee pain, uns pecified chronicity (Primary Dx) Start: 06-07-2024 End: 06-07-2024 Emergency department patient visit [facility] Start: 06-05-2024 End: 06-05-2024 ambulatory [facility] Work Phone: Start: 06-05-2024 End: 06-05-2024 Patient encounter procedure [facility] Gastroenterology Work Phone: Start: 06-03-2024 End: 06-03-2024 ambulatory [facility] Start: 05-07-2024 End: 05-08-2024 Emergency department patient visit BRENNEN MICHELLE [facility] Start: 05-07-2024 End: 05-07-2024 Emergency department patient visit [facility] Start: 04-18-2024 End: 04-18-2024 Postop follow up visit related to original px Ang Figueroa MD Work Phone: [facility]Trauma [facility] Adult Reconstruction Comment on above: Closed displaced int ertrochanteric fracture of right femur with routine healing, subsequent encounter (Primary Dx) Start: 04-04-2024 End: 04-09-2024 Telephone encounter Lorena Red RN [facility] Start: 04-02-2024 End: 04-02-2024 Office outpatient visit 25 minutes Kaye Sauceda PEDIATRIC ONCOLOGY NURSE-OPTICAL ENGINEER Work Phone: [facility] Comment on above: Disorder of sacrum ( Primary Dx) Start: 03-18-2024 End: 03-18-2024 Orders Only Annmarie Marquez PA-C Work Phone: [facility]/Trauma and Adult Reconstruction Comment on above: Closed fracture of r ight hip, initial encounter ([facility]) Start: 03-14-2024 End: 03-14-2024 Postop follow up visit related to original px Rehana Gibbs PA-C Work Phone: [facility] Comment on above: Closed displaced int ertrochanteric fracture of right femur with routine healing, subsequent encounter (Primary Dx); Trochanteric bursitis of right hip Start: 03-07-2024 End: 03-07-2024 Megha Davis MD Work Phone: [facility] Start: 02-28-2024 End: 02-28-2024 ambulatory [facility] Work Phone: Start: 02-28-2024 End: 02-28-2024 Patient encounter procedure [facility] Gastroenterology Work Phone: Start: 02-26-2024 End: 02-26-2024 Orders Only Annmarie Marquez PA-C Work Phone: [facility] Adult [facility] Comment on above: Closed fracture of r ight hip, initial encounter ([facility]) Start: 02-23-2024 End: 02-23-2024 Orders Only Annmarie Marquez PA-C Work Phone: [facility] Comment on above: Closed fracture of r ight hip, initial encounter ([facility]) Start: 02-22-2024 End: 02-22-2024 Orders Only Connie Corbin RN [facility] Comment on above: Periprosthetic fract ure of hip, subsequent encounter (Primary Dx) Start: 02-22-2024 End: 02-22-2024 Postop follow up visit related to original px Ang Figueroa MD Work Phone: [facility] Adult [facility] Comment on above: Localized swelling o f right lower extremity (Primary Dx); Periprosthetic fracture of hip, subsequent encounter Start: 02-19-2024 End: 02-19-2024 Orders Only Annmarie Marquez PA-C Work Phone: [facility] Adult [facility] Comment on above: Closed fracture of r ight hip, initial encounter ([facility]) Start: 02-12-2024 End: 02-12-2024 Orders Only Any GASPAR Work Phone: [facility] Start: 02-09-2024 End: 02-09-2024 Megha Davis MD Work Phone: [facility] Internal [facility] Start: 01-29-2024 End: 02-03-2024 Evaluation and management of inpatient Marc Keys MD Work Phone: [facility] - GEN 7 Acute Comment on above: Closed fracture of r ight hip, initial encounter ([facility]) (Primary Dx); Periprosthetic fracture of hip, sequela; Periprosthetic fracture of hip, subsequent encounter Start: 01-29-2024 End: 01-29-2024 Office outpatient visit 40 minutes Jalen Zhou MD [facility] Comment on above: Closed displaced int ertrochanteric fracture of right femur, sequela (Primary Dx); Closed displaced subtrochanteric fracture of right femur, initial encounter ([facility]) Start: 01-17-2024 End: 01-17-2024 Orders Only Connie Cobrin RN [facility] Comment on above: Closed displaced int ertrochanteric fracture of right femur with routine healing, subsequent encounter (Primary Dx) Start: 01-17-2024 End: 01-22-2024 Evaluation and management of inpatient Geoffrey Webber DO Work Phone: [facility] Acute Comment on above: Closed fracture of r ight hip, initial encounter ([facility]) (Primary Dx) Start: 01-09-2024 End: 01-09-2024 ambulatory DIONTE FREEMAN Not Available Start: 01-02-2024 End: 01-02-2024 ambulatory CHEY ROMANO Not Available Start: 12-12-2023 End: 12-12-2023 ambulatory DIONTE FREEMAN Not Available Start: 12-01-2023 End: 12-01-2023 ambulatory LUIS Du Work Phone: [facility] Work Phone: Start: 12-01-2023 End: 12-01-2023 Patient encounter procedure LUIS Du Work Phone: [facility] Work Phone: Start: 11-13-2023 End: 11-13-2023 ambulatory LUIS Du Work Phone: [facility] Work Phone: Start: 11-13-2023 End: 11-13-2023 Patient encounter procedure LUIS Du Work Phone: [facility] Work Phone: Start: 11-01-2023 End: 11-01-2023 Emergency department patient visit LUIS Du Work Phone: [facility]Emergency Room Work Phone: Start: 09-13-2023 End: 09-13-2023 ambulatory Guillermo Thornton Other [employer] Other Start: 09-13-2023 Telephone encounter Guillermo Sampson Gastroenterology Start: 08-29-2023 End: 08-29-2023 ambulatory Guillermo Thornton Other [employer] Other Start: 08-29-2023 Telephone encounter Guillermo Sampson Gastroenterology Start: 08-21-2023 End: 08-21-2023 ambulatory LUIS Du Work Phone: [facility] Work Phone: Start: 08-21-2023 End: 08-21-2023 Patient encounter procedure LUIS Du Work Phone: [facility] Work Phone: Start: 08-10-2023 End: 08-10-2023 ambulatory Guillermo Thornton Other [employer] Other Start: 08-10-2023 Telephone encounter Guillermo Sampson Gastroenterology Start: 08-10-2023 End: 08-10-2023 Patient encounter procedure LUIS Du Work Phone: [facility] Work Phone: Start: 06-23-2023 End: 06-23-2023 Patient encounter procedure LUIS Du Work Phone: [facility] Work Phone: Start: 06-12-2023 End: 06-12-2023 ambulatory Guillermo Thornton Other [employer] Other Start: 06-12-2023 Telephone encounter Guillermo Sampson Gastroenterology Start: 05-16-2023 End: 05-16-2023 ambulatory LUIS Du Work Phone: [facility] [facility] Work Phone: Start: 05-16-2023 End: 05-16-2023 Patient encounter procedure LUIS Du Work Phone: [facility] Work Phone: Start: 05-02-2023 End: 05-02-2023 ambulatory Guillermo Thornton Other [employer] Other Start: 05-02-2023 Telephone encounter Guillermo Sampson [facility] Start: 04-24-2023 End: 04-24-2023 ambulatory LUIS Du Work Phone: [facility] Work Phone: Start: 04-24-2023 End: 04-24-2023 Patient encounter procedure LUIS Du Work Phone: [facility] Work Phone: Start: 03-28-2023 End: 03-28-2023 ambulatory Guillermo Thornton Other [employer] Other Start: 03-28-2023 Telephone encounter Guillermo ASENCIO [facility] Start: 03-21-2023 End: 03-21-2023 Admission to same day surgery center LUIS Du Work Phone: [facility] Work Phone: Start: 03-21-2023 End: 03-21-2023 ambulatory LUIS Du Work Phone: [facility] Work Phone: Start: 03-01-2023 End: 03-01-2023 ambulatory Guillermo Thornton Other [employer] Other Start: 03-01-2023 Patient encounter procedure Guillermo MEJIA [facility] Start: 02-08-2023 End: 02-08-2023 ambulatory Guillermo Thornton Other [employer] Other Start: 02-08-2023 Telephone encounter Guillermo ASENCIO G [facility] Start: 11-30-2022 End: 11-30-2022 ambulatory Angelo Grande Other [employer] Other Start: 11-30-2022 Telephone encounter Angelo Dubon [facility] Start: 10-20-2022 End: 10-20-2022 ambulatory Guillermo Thornton Other [employer] Other Start: 10-20-2022 Telephone encounter Guillermo ASENCIO [facility] Start: 09-01-2022 End: 09-01-2022 ambulatory Guillermo Thornton Other [employer] Other Start: 09-01-2022 Telephone encounter Guillermo ASENCIO [facility] Start: 08-31-2022 End: 08-31-2022 ambulatory Asa Moeller Other [employer] Other Start: 08-31-2022 Telephone encounter Asa Moeller [facility] Start: 08-24-2022 End: 08-24-2022 ambulatory Sugar Knight Other [employer] Other Start: 08-24-2022 Office outpatient vi sit 25 minutes Sugar Knight [facility] Start: 08-19-2022 End: 08-19-2022 ambulatory Asa Moeller Other [employer] Other Start: 08-19-2022 Office outpatient vi sit 15 minutes Asa Sajan [facility] Start: 08-16-2022 End: 08-16-2022 ambulatory Asasachin Moeller Other [employer] Other Start: 08-16-2022 Telephone encounter Asa Moeller [facility] Start: 08-11-2022 End: 08-11-2022 ambulatory Guillermo Thornton Other [employer] Other Start: 08-11-2022 Telephone encounter Guillermo ASENCIO [facility] Start: 08-03-2022 (Procedure) Short Asa Moeller [facility] Start: 08-03-2022 End: 08-03-2022 Admission to same day surgery center LUIS Du Work Phone: [facility] Start: 08-03-2022 End: 08-03-2022 ambulatory LUIS Du Work Phone: [facility] Work Phone: Start: 07-28-2022 End: 07-28-2022 ambulatory Sugar Knight Other [employer] Other Start: 07-28-2022 Office outpatient vi sit 25 minutes Sugar Knight [facility] Start: 07-19-2022 End: 07-19-2022 ambulatory Guillermo Thornton Other [employer] Other Start: 07-19-2022 Telephone encounter Guillermo ASENCIO [facility] Start: 06-28-2022 End: 06-28-2022 ambulatory Sugar Knight Other [employer] Other Start: 06-28-2022 Office outpatient vi sit 25 minutes Sugar Knight [facility] Start: 06-01-2022 (Procedure) Short Asa Moeller [facility] Start: 06-01-2022 End: 06-01-2022 Admission to same day surgery center LUIS Du Work Phone: [facility] Start: 06-01-2022 End: 06-01-2022 ambulatory LUIS Du Work Phone: [facility] Work Phone: Start: 05-24-2022 End: 05-24-2022 ambulatory Asa Moeller Other [employer] Other Start: 05-24-2022 Office outpatient vi sit 15 minutes Aas Moeller [facility] Start: 05-17-2022 End: 05-17-2022 ambulatory Yung Figueroa Other [employer] Other Start: 05-17-2022 Telephone encounter Yung Butts ck [facility] Start: 04-27-2022 End: 04-27-2022 ambulatory Asa Moeller Other [employer] Other Start: 04-27-2022 Office outpatient vi sit 25 minutes Asasachin Moeller [facility] Start: 04-15-2022 End: 04-15-2022 Patient encounter procedure LUIS Du Work Phone: [facility] Start: 03-31-2022 End: 03-31-2022 ambulatory Asa Moeller Other [employer] Other Start: 03-31-2022 Office outpatient ne w 45 minutes Asa Sajan [facility] Start: 03-01-2022 End: 03-01-2022 ambulatory Jeff Ministerio Other [employer] Other Start: 03-01-2022 Telephone encounter Jeff Mandel [facility] Start: 02-17-2022 End: 02-17-2022 ambulatory Jeff Mandel Other [employer] Other Start: 02-17-2022 Telephone encounter Jeff Mandel [facility] Start: 12-23-2021 End: 12-23-2021 ambulatory Jeff Mandel Other [employer] Other Start: 12-23-2021 Telephone encounter Jeff Mandel [facility] Start: 12-20-2021 End: 12-20-2021 ambulatory Bird Slade Other [employer] Other Start: 12-20-2021 Office outpatient vi sit 15 minutes Bird Slade [facility] Start: 12-15-2021 End: 12-15-2021 ambulatory Jeff Mandel Other [employer] Other Start: 12-15-2021 Telephone encounter Jeff Mandel [facility] Start: 09-30-2021 End: 09-30-2021 ambulatory Jeff Mandel Other [employer] Other Start: 09-30-2021 Telephone encounter Jeff Jonyflora [facility] Gastroenterology Start: 09-20-2021 End: 09-20-2021 ambulatory Jeff Mandel Other [employer] Other Start: 09-20-2021 Telephone encounter Jeff Jonyflora [facility] Gastroenterology Start: 09-17-2021 End: 09-17-2021 ambulatory Jeff Mandel Other [employer] Other Start: 09-17-2021 Telephone encounter Jeff Jonyflora [facility] Gastroenterology Start: 09-01-2021 End: 09-01-2021 ambulatory Bird Slade Other [facility] [employer] Other Start: 09-01-2021 Telephone encounter Bird Dubon [facility] Neuro[facility] Start: 08-25-2021 End: 08-25-2021 ambulatory Jeff Mandel Other [facility] [employer] Other Start: 08-25-2021 Office outpatient vi sit 25 minutes Jeff Jonyflora [facility] Gastroenterology Start: 08-23-2021 End: 08-23-2021 ambulatory Jeff Mandel Other [facility] [employer] Other Start: 08-23-2021 Office outpatient ne w 30 minutes Bird Slade [facility] Neurosurgery Start: 08-23-2021 Telephone encounter Jeff Mandel [facility] Gastroenterology Start: 10-28-2020 End: 10-28-2020 Patient encounter procedure dJ Du -Pre-Surgical Testing Start: 05-13-2020 End: 05-14-2020 Patient encounter procedure [facility]:H[facility] Start: 04-23-2018 End: 04-27-2018 Evaluation and management of inpatient [facility] Procedures Date Procedure Procedure Detail Performing Clinician Start: 03-24-2025 Follow-up visit Follow-up MARC ALVES Start: 05-01-2025 Ultrasonography of abdomen Francisca Mauro MD Work Phone: Start: 12-04-2024 MEASURE POST VOID RESIDUAL Vivek Trevor eller PA Work Phone: Start: 08-27-2024 MRI [...] Ang Figueroa MD Work Phone: Start: 06-20-2024 Follow-up visit Follow-up ANG FIGUEROA Start: 02-03-2024 [...] mntr dev cleared fda spec home use Leatah Saldivar MD Work Phone: Start: 02-01-2024 Gluc [...] Radiologic examination femur minimum 2 views Jalen Zhou MD Work Phone: Start: 01-30-2024 Fluoroscopy up [...] Start: 01-22-2024 Adult depression screening assessment Jalen Zhou MD Work Phone: Start: 01-21-2024 Gluc bld [...] use Jeff Martin MD Work Phone: Start: 06-07-2024 Basic metabolic panel calcium total Sand eep S Brielle MD Work Phone: Start: 01-18-2024 Gluc bld [...] End: 01-18-2024 Basic metabolic panel calcium total Sand julianp Ozzy Hannah MD Work Phone: Start: 01-17-2024 Urnls dip stick/tablet rgnt auto w/o microscopy Stephen Hannah MD Work Phone: Start: 01-17-2024 Radiologic exam chest single view Ignacio Arreola PA-C Work Phone: Start: 01-17-2024 Gluc bld gluc mntr dev cleared fda spec home use Jeff Martin MD Work Phone: Start: 01-17-2024 PULSE OXIMETRY, SPOT Stephen Castellanos Work Phone: Start: 01-17-2024 Antibody screen Mahammad Imani DO Work Phone: Start: 01-17-2024 Assay of troponin quantitative Geoffrey Webber DO Work Phone: Start: 01-17-2024 Blood typing serologic abo Ignacio Arreola [facility] Work Phone: Start: 01-17-2024 Radiologic examination femur minimum 2 views Ignacio Minkristina LUIS Work Phone: Start: 01-17-2024 Ecg routine ecg w/least 12 lds trcg only w/o i&r Geoffrey Webber DO Work Phone: Start: 01-17-2024 Cyanocobalamin vitamin b-12 Geoffrey Dela Cruz Deidra ga DO Work Phone: Start: 11-13-2023 MRI [...] specific antigen measurement Prostate Cancer Screening Discussion [facility] Start: 03-24-2026 Adult BMI Screening Adult BMI Screening [facility] Start: 03-24-2026 Tobacco Screening Tobacco Screening [facility] Start: 01-29-2026 Adult BMI Screening Adult BMI Screening [facility] Start: 01-29-2026 Tobacco Screening Tobacco Screening [facility] Start: 01-15-2026 Adult BMI Screening Adult BMI Screening [facility] Start: 01-15-2026 Tobacco Screening Tobacco Screening [facility] Start: 12-04-2025 Adult BMI Screening Adult BMI Screening [facility] Start: 12-04-2025 Tobacco Screening Tobacco Screening [facility] Start: 08-02-2025 Tobacco Counseling Tobacco Counseling [facility] Start: 07-25-2025 Adult BMI Screening Adult BMI Screening [facility] Start: 07-25-2025 Tobacco Screening Tobacco Screening [facility] Start: 07-18-2025 Adult BMI Follow Up Plan Adult BMI Follow Up Plan [facility] Start: 07-18-2025 Adult BMI Screening Adult BMI Screening [facility] Start: 07-18-2025 Tobacco Screening Tobacco Screening [facility] Start: 06-20-2025 Adult BMI Screening Adult BMI Screening [facility] Start: 06-20-2025 Tobacco Screening Tobacco Screening [facility] Start: 06-07-2025 Adult BMI Screening Adult BMI Screening [facility] Start: 06-07-2025 Tobacco Screening Tobacco Screening [facility] Start: 05-26-2025 End: 05-26-2025 Patient encounter procedure 05/26/2025 3:15 PM EDT Office Visit [facility] [address] [facility] [place] [address] Marc Alves MD [address] [place] [address] [facility] Start: 05-02-2025 End: 05-02-2025 ambulatory 05/02/2025 1:00 PM EDT [facility] [address] [place], [place] [id number] Nohemy Ramirez PSYD [address] [place], [place] [id number] No comment Pain Recovery Comment on above: No comment Start: 04-28-2025 End: 04-28-2025 Patient encounter procedure 04/28/2025 2:45 PM EDT Appointment [facility] [address] [address] [facility] Start: 04-18-2025 Adult BMI Screening Adult BMI Screening [facility] Start: 04-18-2025 Tobacco Screening Tobacco Screening [facility] Start: 04-14-2025 Influenza vaccination [facility] Start: 04-02-2025 Adult BMI Screening Adult BMI Screening [facility] Start: 04-02-2025 Tobacco Screening Tobacco Screening [facility] Start: 04-01-2025 End: 04-01-2025 ambulatory 04/01/2025 4:00 PM EDT [facility] [address] [place] [id number] Alistair Mcnally MD [address] [place] [address] [facility] Comment on above: [facility] Start: 03-19-2025 End: 03-19-2025 ambulatory 03/19/2025 10:00 AM EDT [facility] [address] [place] [address] Nohemy Ramirez PSYD [address] [facility] [place], [place] [id number] Back,leg,and neck pain Pain Recovery Comment on above: Back,leg,and neck pain Start: 03-14-2025 Adult BMI Screening Adult BMI Screening [facility] Start: 03-14-2025 Tobacco Screening Tobacco Screening [facility] Start: 03-13-2025 End: 03-13-2025 Patient encounter procedure 03/13/2025 1:00 PM EDT Office Visit [facility] [address] [place] [address] Nohemy Ramirez PSYD [address] [place] [address] Pain in back,legs, and neck. Pain Recovery Comment on above: Pain in back,legs, and neck. Start: 02-21-2025 End: 02-21-2025 Patient encounter procedure 02/21/2025 2:15 PM EDT Office Visit Pain Management [address] [place] [address] Alistair Mcnally MD [address] [place] [address] Office Pain Management Comment on above: Office Start: 02-21-2025 Adult BMI Screening Adult BMI Screening [facility] Start: 02-20-2025 End: 02-20-2025 Follow-up encounter 02/20/2025 2:30 PM EDT Visit (SP) Office Hematology/Oncology [address] [facility] [place] [address] Zac Crouch MD [address] [place] [address] 3 month follow up Hematology/Oncology Comment on above: 3 month follow up Start: 02-20-2025 End: 02-20-2025 Patient encounter procedure 02/20/2025 2:15 PM EDT Office Visit [facility] [address] [facility] [place] [address] 3 month follow up [facility] Comment on above: 3 month follow up Start: 02-20-2025 End: 05-22-2025 Carcinoembryonic Ag [Mass/volume] in Serum or Plasma [facility] Work Phone: Comment on above: Expected: 02/20/2025, Expires: Start: 02-08-2025 Adult BMI Screening Adult BMI Screening [facility] Start: 02-02-2025 Depression Screening Depression Screening [facility] Start: 02-02-2025 Tobacco Screening Tobacco Screening [facility] Start: 01-29-2025 End: 01-29-2025 Admission to same day surgery center 01/29/2025 8:30 AM EDT - 01/29/2025 9:15 AM EDT Surgery [facility] Surgery [address] [place] [phone] Marc Alves MD [address] [place] [id number] CYSTOSCOPY [46488 (CPT )] [facility] Comment on above: CYSTOSCOPY [51976 (CPT )] Start: 01-29-2025 End: 01-29-2025 Anesthesia consultation 01/29/2025 8:30 AM EDT Anesthesia Event [facility] Surgery [address] [place] [phone] Jamal Chambers, DO [address] [place] [address] [facility] Start: 01-29-2025 End: 01-29-2025 Cystourethroscopy [place] [facility] Start: 01-29-2025 Subsequent hospital visit by physician 01/29/2025 8:30 AM EDT Hospital Encounter [facility] Surgery [address] [place] [phone] Marc Alves MD [address] [place] [id number] [facility] Surgery Start: 01-28-2025 Adult BMI Screening Adult BMI Screening [facility] Start: 01-21-2025 Depression Screening Depression Screening [facility] Start: 01-21-2025 Tobacco Screening Tobacco Screening [facility] Start: 01-16-2025 Adult BMI Screening Adult BMI Screening [facility] Start: 01-16-2025 Tobacco Screening Tobacco Screening [facility] Start: 01-03-2025 End: 01-03-2025 ambulatory 01/03/2025 2:00 PM EDT [facility] [address] [facility] [place] [address] Komal Hernadez, PEDIATRIC ONCOLOGY NURSE.OPTICAL ENGINEER [address] [place] [address] RTC aftre CELINA/ONC appt Pain Management Comment on above: RTC aftre CELINA/ONC appt Start: 01-03-2025 End: 01-03-2025 Patient encounter procedure 01/03/2025 2:00 PM EDT Office Visit Pain Management [address] [place] [address] Komal Hernadez, PEDIATRIC ONCOLOGY NURSE.OPTICAL ENGINEER [address] [facility] [place] [address] RTC aftre CELINA/ONC appt Pain Management Comment on above: RTC aftre CELINA/ONC appt Start: 12-16-2024 End: 12-16-2024 Admission to same day surgery center 12/16/2024 9:43 AM EDT - 12/16/2024 10:11 AM EDT Surgery Ambulatory Surgery [address] [facility] [place] [address] Abrahan Rinaldi MD [address] [facility] [place] [address] INJECTION(S) STEROID TRANSFORAMINAL EPIDURAL LUMBAR W/IMAGE GUIDANCE [...] AM EDT Hospital Encounter Ambulatory Surgery [address] [facility] [address] [place], [place] [phone] Abrahan Rinaldi MD [address] [facility] [place], [place] [phone] Radicular syndrome of right leg [M54.10], History of lumbar laminectomy [Z98.890], Diabetic peripheral neuropathy (HCC) [E11.42] Ambulatory Surgery Comment on above: Radicular syndrome of right leg [M54.10] , History of lumbar laminectomy [Z98.890], Diabetic peripheral neuropathy (HCC) [E11.42] Start: 11-28-2024 End: 11-28-2024 ambulatory 11/28/2024 4:00 PM EDT Visit (SP) Office Hematology/Oncology [address] [place] [address] [place] [address] Zac Crouch MD [address] [place] [address] [place] [address] Abrahan Rinaldi DX: Thrombocytopenia [D69.6] Hematology/Oncology Comment on above: Ref by Dr Abrahan Rinaldi DX: Thromboc ytopenia [D69.6] Start: 11-28-2024 End: 02-27-2025 COPPER BLOOD [facility] Work Phone: Comment on above: Expected: 11/28/2024, Expires: Start: 11-28-2024 End: 02-27-2025 Zinc [Mass/volume] in Serum or Plasma [facility] Comment on above: Expected: 11/28/2024, Expires: Start: 11-26-2024 End: 11-26-2024 ambulatory 11/26/2024 4:00 PM EDT Visit (SP) Office Hematology/Oncology [address] [place] [address] [place] [address] Zac Crouch MD [address] [facility] [place] [address] Abrahan Rinaldi DX: Thrombocytopenia [D69.6] Hematology/Oncology Comment on above: Ref by Dr Abrahan Rinaldi DX: Thromboc ytopenia [D69.6] Start: 11-22-2024 End: 11-22-2024 Patient encounter procedure 11/22/2024 2:00 PM EDT Office Visit Pain Management [address] [place] [address] Abrahan Rinaldi MD [address] [place] [address] Acute right-sided low back pain with right-sided sciatica [M54.41] Pain Management Comment on above: Acute right-sided low back pain with rig ht-sided sciatica [M54.41] Start: 09-19-2024 End: 09-19-2024 Patient encounter procedure 09/19/2024 12:00 PM EST Office Visit [facility] [address] [place] [phone] Dionte Sauceda PA [address] [place] [address] [facility] Start: 08-05-2024 End: 08-05-2024 Patient encounter procedure 08/05/2024 2:00 PM EST Procedure Visit [facility] [address] [place] [phone] Erick Naylor, [address] [place] [address] [facility] Comment on above: Arrived Start: 07-25-2024 End: 07-25-2024 Patient encounter procedure [facility] Start: 07-19-2024 Hemoglobin A1c measurement HbA1C [facility] Start: 07-18-2024 End: 07-18-2025 MR Lumbar spine [...] healing, subsequent encounter Expected: 07/09/2024, Expires: 07/09/2025 [facility] [employer] Work Phone: Comment on above: Expected: 07/09/2024, [...] Adult Reconstruction [address] [place] [address] Ang Figueroa MD [address] [place] [address], [address] [place] [address] [facility] Start: [...] Visit [facility] [address] [place] [address] [address] [place] [phone] Ang Figueroa MD [address] [place] [address], [address] [place] [address] [facility] Start: 04-14-2024 COVID-19 Vaccine ( season) COVID-19 Vaccine ( season) [facility] Start: 04-14-2024 COVID-19 Vaccine ( season) COVID-19 Vaccine ( season) [facility] Start: 04-14-2024 Influenza vaccination [facility] Start: 03-14-2024 End: 03-14-2025 XR Pelvis and [...] Adult Reconstruction [address] [place] [address] Ang Figueroa MD [facility] [address] [place] [address] [facility] Start: 02-22-2024 End: 02-21-2025 XR Femur - right 2 Views [facility] Work Phone: Comment on above: Ordered: 02/22/2024 Expected: 02/22/2024 , Expires: 02/21/2025 Start: 02-22-2024 End: 02-22-2024 Patient encounter procedure [facility] Start: 02-12-2024 End: 02-12-2024 Patient encounter procedure 02/12/2024 8:15 AM EDT Office Visit [facility] [address] [place] [address] Ang Figueroa MD [address] [place] [address] [facility] Start: 02-01-2024 End: 02-01-2024 Patient encounter procedure 02/01/2024 9:30 AM EDT Office Visit [facility] [address] [place] [address] Ang Figueroa MD [facility] [place] [address] [facility] Start: 01-31-2024 End: 01-31-2024 Patient encounter procedure 01/31/2024 9:45 AM EDT Office Visit [facility] [address] [place] [phone] Chey Lanza MD [address] [place] [address] [facility]Trauma [facility] Adult Reconstruction Start: 01-29-2024 End: 01-29-2024 Evaluation and management of inpatient [facility] IP Re[facility] Occupational Therapy Comment on above: Arrived Start: 01-29-2024 End: 01-29-2024 Evaluation and management of inpatient [facility] Inpatient Re[facility] Physical Therapy Comment on above: Arrived Start: 01-18-2024 End: 01-18-2024 Admission to same day surgery center 01/18/2024 12:45 PM EDT - 01/18/2024 2:45 PM EDT Surgery [address] [phone] Chey Lanza MD [address] [place] [address] INSERTION INTRAMEDULLARY NAIL FEMUR-TFNA HIP FX [facility] Comment on above: INSERTION INTRAMEDULLARY NAIL FEMUR-TFNA HIP FX Start: 01-18-2024 End: 01-18-2024 INSERTION INTRAMEDULLARY NAIL FEMUR INSERTION INTRAMEDULLARY NAIL FEMUR Closed displaced intertrochanteric fracture of right femur, initial encounter ([facility]) 01/18/2024 12:45 PM EDT [facility] Start: 01-18-2024 Subsequent hospital visit by physician 01/18/2024 12:45 PM EDT Hospital Encounter [address] [id number] Chey Lanza MD [address] [place] [address] [facility] Start: 01-17-2024 End: 01-16-2025 XR Pelvis and Hip - right 2 Views X-ray hip right 2-3 views with or without pelvis Imaging Routine Closed displaced intertrochanteric fracture of right femur with routine healing, subsequent encounter Expected: 01/17/2024, Expires: 01/16/2025 [facility] Work Phone: Comment on above: Expected: 01/17/2024, Expires: Start: 12-01-2023 Patient referral [facility] Work Phone: Start: 2023 Prostate specific antigen measurement Prostate Cancer Screening Discussion [facility] Start: 05-16-2023 [facility] Start: 04-14-2023 COVID-19 Vaccine ( season) COVID-19 Vaccine ( season) [facility] Start: 03-21-2023 End: 03-21-2023 [facility] Start: 08-03-2022 [facility] Start: 06-01-2022 [facility] Start: 2018 Administration of varicella zoster vaccine Zoster (Shingles) Vaccine (1 of 2) [facility] Start: 2018 Shingrix Vaccine (1 of 2) Shingrix Vaccine (1 of 2) [facility] Start: 2013 Prostate specific antigen measurement Prostate Cancer Screening Discussion [facility] Start: 2013 Screening for malignant neoplasm of colon [facility] Start: 11-12-2012 Medicare Annual Wellness Visit Medicare Annual Wellness Visit [facility] Start: 1987 DTaP,Tdap and Td Vaccines (1 - Tdap) DTaP,Tdap and Td Vaccines (1 - Tdap) [facility] Start: 1987 Hepatitis B Vaccine (1 of 3 - 19+ 3-dose series) Hepatitis B Vaccine (1 of 3 - 19+ 3-dose series) [facility] Start: 1987 Pneumococcal Vaccine: 50+ (1 of 2 - PCV) Pneumococcal Vaccine: 50+ (1 of 2 - PCV) [facility] Start: 1987 Urine microalbumin profile DTaP,Tdap,Td Vaccine (1 - Tdap) [facility] Start: 1986 Adult BMI Follow Up Plan Adult BMI Follow Up Plan [facility] Start: 1986 Annual PCP Team Chronic Disease Visit Annual PCP Team Chronic Disease Visit [facility] Start: 1986 Anxiety Screening Anxiety Screening [facility] Start: 1986 BP Controlled (<130/80) BP Controlled (<130/80) [facility] Start: 1986 Depression Screening Depression Screening [facility] Start: 1986 Diabetic foot examination Diabetic Foot Exam [facility] Start: 1986 Hepatitis B surface antibody level LDL Cholesterol [facility] Start: 1986 HIV screening HIV Screening [facility] Start: 1980 Depression Screening Depression Screening [facility] Start: 1978 Diabetic foot examination Diabetic Foot Exam [facility] Start: 1978 Glaucoma screening Dilated Retinal Exam [facility] Start: 1978 Hepatitis B screening Urine Albumin:Creatinine Ratio [facility] Start: 1968 Glaucoma screening Diabetic Ophthalmology Exam [facility] Start: 1968 Medicare Annual Wellness (AWV) Medicare Annual Wellness (AWV) [facility] Start: 1968 Screening for malignant neoplasm of colon [facility] Start: 1968 Tobacco Counseling Tobacco Counseling [facility] Start: 1968 Urine screening for protein Urine Microalbumin [facility] End: 02-04-2024 Basic metabolic 2000 panel - Serum or Plasma Basic Metabolic Panel Lab Routine Lab max of 3 days, Daily, for lab use only for 3 Days starting 02/02/2024 until 02/04/2024, 2 completed [employer] Comment on above: Lab max of 3 days, Daily, for lab use on ly for 3 Days starting 02/02/2024 until 02/04/2024, 2 completed Bedside Glucose *Place/Obtain serum glucose if >500(>600 [facility]) per glucometer. Bedside Glucose *Place/Obtain serum glucose if >500(>600 [facility]) per glucometer. Point of Care Testing Routine 4X Daily (AC and at bedtime) until discontinued starting 01/29/2024, 15 completed [employer] Comment on above: 4X Daily (AC and at bedtime) until disco ntinued starting 01/29/2024, 15 completed Bedside Glucose *Place/Obtain serum glucose if >500(>600 [facility]) per glucometer. Bedside Glucose *Place/Obtain serum glucose if >500(>600 [facility]) per glucometer. Point of Care Testing Routine 4X Daily (AC and at bedtime) until discontinued starting 02/03/2024 [employer] Comment on above: 4X Daily (AC and at bedtime) until disco ntinued starting 02/03/2024 End: 02-04-2024 CBC W Auto Differential panel - Blood CBC auto differential Lab Routine Lab max of 3 days, Daily, for lab use only for 3 Days starting 02/02/2024 until 02/04/2024, 2 completed [employer] Work Phone: Comment on above: Lab max of 3 days, Daily, for lab use on ly for 3 Days starting 02/02/2024 until 02/04/2024, 2 completed Comprehensive metabo lic 2000 panel - Serum or Plasma [facility] End: 07-18-2025 EMG With NCV EMG With NCV Neurology Routine Left cervical radiculopathy Bilateral hand pain Bilateral hand numbness Cervical spondylosis 1 Occurrences starting 07/18/2024 until 07/18/2025 [facility] Comment on above: 1 Occurrences starting 07/18/2024 until 07/18/2025 End: 01-13-2026 EMG(NEURO/NI) EMG(NEURO/NI) EMG Routine Radiculopathy, lumbar region History of total right hip replacement H/O lumbar discectomy 1 Occurrences starting 01/13/2025 until 01/13/2026 [facility] Work Phone: Comment on above: 1 Occurrences starting 01/13/2025 until 01/13/2026 Hepatitis C virus Ig G Ab [Presence] in Serum or Plasma by Immunoassay [facility] Inject si joint arthrgrphy&/anes/steroid w/margo INJECTION BLOCK SACROILIAC JOINT Disorder of sacrum [place] [facility] Njx anes&/strd w/img tfrml edrl lmbr/sac 1 lvl INJECTION(S) STEROID TRANSFORAMINAL EPIDURAL LUMBAR W/IMAGE GUIDANCE FLUORO OR CT Radiculopathy, lumbar region [facility] Oxygen Therapy - Maintain SpO2: 90%; *PATENT LAWYER Guidelines for O2: Yes; Document: [email or web address] c\EPIC_Reference\Orders\ Respiratory Care Guidelines\CPG Oxygen 2022.pdf Oxygen Therapy - Maintain SpO2: 90%; *PATENT LAWYER Guidelines for O2: Yes; Document: [email or web address] c\EPIC_Reference\Orders\ Respiratory Care Guidelines\CPG Oxygen 2022.pdf Respiratory Care Routine As Needed until discontinued starting 01/29/2024 [facility] Work Phone: Comment on above: As Needed until discontinued starting Oxygen Therapy - Maintain SpO2: 90%; *PATENT LAWYER Guidelines for O2: Yes; Document: [email or web address] c\EPIC_Reference\Orders\ Respiratory Care Guidelines\CPG Oxygen 2022.pdf Oxygen Therapy - Maintain SpO2: 90%; *PATENT LAWYER Guidelines for O2: Yes; Document: [email or web address] c\EPIC_Reference\Orders\ Respiratory Care Guidelines\CPG Oxygen 2022.pdf Respiratory Care Routine As Needed until discontinued starting 01/30/2024 [facility] Work Phone: Comment on above: As Needed until discontinued starting Patient Education [facility] Work Phone: Patient referral [facility] Work Phone: End: 12-04-2025 Prostatic specific antigen, diagnostic Prostatic specific antigen, diagnostic Lab Routine Benign prostatic hyperplasia, unspecified whether lower urinary tract symptoms present 1 Occurrences starting 12/04/2024 until 12/04/2025 [employer] Work Phone: Comment on above: 1 Occurrences starting 12/04/2024 until 12/04/2025 End: 01-29-2024 Type and screen(includes indirect yolanda) Type and screen(includes indirect yolanda) Blood Bank Routine Once for 1 Occurrences starting 01/29/2024 until 01/29/2024 [facility] Comment on above: Once for 1 Occurrences starting 01/29/20 until 01/29/2024 US Abdomen limited [facility] US.doppler Lower extremity vein - right Vas venous duplex lwr single right Vascular Ultrasound STAT Localized swelling of right lower extremity 02/22/2024 2:44 PM EDT [facility] Immunizations Immunization Date Immunization Notes Care Provider Fa cility NEGATED: Highlighted row has not occurred!04-25-2018 influenza, injectable, quadrivalent, preservative free Martha Faulkner APRN.OPTICAL ENGINEER Work Phone: [facility] Comment on above: Deferred: Patient Re fused - wants to wait Payers Date Payer Category Payer Unknown [id number] 2024 Self-pay [id number] 2024 Unknown [id number] 2017 Medicaid [id number] 2017 Unknown [id number] 2012 Medicare [id number]. [id number] 2012 Medicare [id number] 1968 Unknown [id number] 2.16.84 0.1.568732.3.579.2.593 1968 Unknown [id number] 2.16.84 0.1.646307.3.579.2.9 1968 Unknown [id number] 2.16.84 0.1.664487.3.579.2.9 1968 Unknown [id number] 2.16.84 0.1.064856.3.579.2.1259 1968 Unknown [id number] 2.16.84 0.1.398947.3.579.2.1259 1968 Unknown [id number] 2.16.84 0.1.437138.3.579.2.1259 1968 Unknown [id number] 2.16. 840.1.369959.3.579.2.196 1968 Unknown [id number] 2.16. 840.1.927517.3.579.2.196 1968 Unknown [id number] 2.16. 840.1.880294.3.579.2.1285 1968 Unknown [id number] 2.16. 840.1.809089.3.579.2.1285 1968 Unknown [id number] 2.16. 840.1.995580.3.579.2.1285 1968 Unknown [id number] 2.16.8 40.1.543038.3.579.2.1285 1968 Unknown [id number] 2.16.8 40.1.696417.3.579.2.1285 1968 Unknown [id number] 2.16. 840.1.598974.3.579.2.1285 1968 Unknown [id number] 2.16.8 40.1.583159.3.579.2.1285 1968 Unknown [id number] 2.16.8 40.1.823674.3.579.2.1285 1968 Unknown [id number] 2.16.8 40.1.873252.3.579.2.1285 1968 Unknown [id number] 2.16.8 40.1.896319.3.579.2.1285 1968 Unknown [id number] 2.16. 840.1.829852.3.579.2.1285 1968 Unknown [id number] 2.. 840.1.131060.3.579.2.1285 1968 Unknown [id number] 2.16. 840.1.661528.3.579.2.1285 1968 Unknown [id number] 2.16. 840.1.800735.3.579.2.1285 1968 Unknown [id number] 2.16. 840.1.068706.3.579.2.1285 1968 Unknown [id number] 2.16. 840.1.430923.3.579.2.1285 1968 Unknown [id number] 2.16. 840.1.790891.3.579.2.1285 1968 Unknown [id number] 2.16. 840.1.053953.3.579.2.1285 1968 Unknown [id number] 2.16.8 40.1.494779.3.579.2.1285 1968 Unknown [id number] 2.16.8 40.1.761324.3.579.2.1285 1968 Unknown [id number] 2.16.8 40.1.749001.3.579.2.1285 1968 Unknown [id number] 2.16.8 40.1.939529.3.579.2.1285 1968 Unknown [id number] 2.16.8 40.1.509656.3.579.2.1285 1968 Unknown [id number] 2.16.8 40.1.111737.3.579.2.1286 1959 Medicare [id number] Unknown [id number] Unknown [id number] 2.16.8 40.1.157985.3.579.2.531 Unknown [id number] 2.16.8 40.1.905106.3.579.2.531 Unknown [id number] 2.16.8 40.1.561583.3.579.2.531 Social History Date Type Detail Facility Start: 10-14-2020 End: 02-21-2025 Tobacco smoking status NHIS Ex-smoker (finding) [facility] Start: 1970 Sex Assigned At Male [facility] Start: 01-09-2024 End: 11-22-2024 Sex Assigned At [facility] Start: 10-30-2020 End: 03-21-2023 Tobacco smoking status PRIS Current some day smoker [facility] Start: 11-01-2023 End: 02-28-2024 Tobacco smoking status NHIS Smoker (finding) [facility] Start: 12-06-1989 End: 01-15-2025 Tobacco smoking status PRIS Smokes tobacco daily [facility] Start: 12-06-1989 End: 08-21-2014 History of tobacco use Cigarette Smoker [facility] Start: 12-12-2023 End: 02-21-2025 Tobacco use and exposure Smokeless tobacco non-user [facility] Start: 01-09-2024 End: 03-24-2025 Alcoholic beverage intake Ex-drinker (finding) [facility] Start: 01-09-2024 End: 11-22-2024 History of Social function [facility] Start: 08-11-2021 Gender identity Identifies as male gender (finding) [facility] Start: 08-11-2021 Sexual orientation Heterosexual (cecille lewis) [facility] Has the [employer], or water [employer] threatened to shut off services in your home in past 12Mo No [facility] Are you now , , , , never or living with a partner? Never [facility] How often to you hav e a drink containing alcohol? Never [facility] Start: 03-06-2018 How many standard drinks containing alcohol do you have on a typical day? Patient does not drink [facility] Do you feel stress - tense, restless, nervous, or anxious, or unable to sleep at night because your mind is troubled all the time - these days [OSQ] To some extent [facility] Start: 08-09-2016 End: 12-13-2024 Sex Male (finding) [facility] Start: 01-17-2024 End: 02-21-2025 Alcoholic beverage intake Current non-drinker of alcohol (finding) [facility] Are you now , , , , never or living with a partner? [facility] Do you feel stress - tense, restless, nervous, or anxious, or unable to sleep at night because your mind is troubled all the time - these days [OSQ] Not at all [facility] Medical Equipment Procedure Code Equipment Code Equipment Origin al Text Equipment Identifier Dates Repair, hernia, inguinal, with mesh FDA Start: 06-14-2019 Repair, hernia, inguinal, with mesh [id number] FDA Start: 06-14-2019 Repair, hernia, inguinal, with mesh [id number] FDA Start: 06-14-2019 Repair, hernia, inguinal, with mesh [id number] FDA Start: 06-14-2019 Repair, hernia, inguinal, with mesh [id number] FDA Start: 06-14-2019 Repair, hernia, inguinal, with mesh [id number] FDA Start: 06-14-2019 Repair, hernia, inguinal, with mesh [id number] FDA Start: 06-14-2019 Repair, hernia, inguinal, with mesh [id number] FDA Start: 06-14-2019 Repair, hernia, inguinal, with mesh [id number] FDA Start: 06-14-2019 Repair, hernia, inguinal, with mesh [id number] FDA Start: 06-14-2019 Repair, hernia, inguinal, with mesh [id number] FDA Start: 06-14-2019 Repair, hernia, inguinal, with mesh [id number] FDA Start: 06-14-2019 Repair, hernia, inguinal, with mesh [id number] FDA Start: 06-14-2019 Repair, hernia, inguinal, with mesh [id number] FDA Start: 06-14-2019 Repair, hernia, inguinal, with mesh [id number] FDA Start: 06-14-2019 Repair, hernia, inguinal, with mesh [id number] FDA Start: 06-14-2019 Abdominal hernia surgical mesh, composite-polymer [id number] FDA Start: 05-13-2019 [id number] Start: 09-14-2018 Cable Orth Lcp 7 50mm Ss 1.7mm Crmp Ns - [id number] Start: 01-30-2024 Mesh [id number] Pp Pcl Macroporous Parietene Ds 2.4mm Comp Abs Rpl [id number] - [id number] - [id number] Start: 10-27-2021 Nail Im 170mm 12 mm 125d Cnn Tfn-Adv Lat Rlf Cut Ti Niobium - [id number] Start: 01-18-2024 Nail Im 440mm 12 mm 125d Cnn Tfn-Adv Lat Rlf Cut Ti Niobium - [id number] Start: 01-30-2024 Screw Bn 95mm 10 .35mm Cnn Ti Al Niobium Tfn-Adv 3.5mm Strl - [id number] Start: 01-18-2024 Screw Bn 38mm 5m m Lck X25 Im Nl - [id number] Start: 01-18-2024 Screw Bn 95mm 10 .35mm Cnn Ti Al Niobium Tfn-Adv 3.5mm Strl - [id number] Start: 01-30-2024 Screw Bn 58mm 5m m Lck X25 Im Nl - [id number] Start: 01-30-2024 Screw Bn 44mm 5m m Lck X25 Im Nl - [id number] Start: 01-30-2024 Goals Date Patient Goal Desired Activity /State Personal health goal Comment on above: Formatting of this n ote might be different from the original. Evaluation of progress towards goal: Participating in therapy Personal health goal Comment on above: Formatting of this n ote might be different from the original. Evaluation of progress towards goal: pt [place] [facility] [place] [place] Personal health goal Comment on above: Formatting [...] 04/27/2018 4:56 PM Brennen Tucker RN No [facility] 04-27-2018 Are you blind, or do you have serious difficulty seeing, even when wearing glasses No 04/27/2018 4:56 PM EDBrennen Yip RN No [facility] 04-27-2018 Do you have serious difficulty walking or climbing stairs No 04/27/2018 4:56 PM Brennen Tucker RN No [facility] 04-27-2018 Do you have difficul ty dressing or bathing No 04/27/2018 4:56 PM Brennen Tucker RN No [facility] 04-27-2018 Because of a physica l, mental, or emotional condition, do you have difficulty doing errands alone such as visiting a physician's office or shopping No 04/27/2018 4:56 PM Brennen Tucker RN No [facility] Mental Status Date Assessment Result Facility 04-27-2018 Because of a physica l, mental, or emotional condition, do you have serious difficulty concentrating, remembering, or making decisions No 04/27/2018 4:56 PM Brennen Tucker RN No [facility] Clinical Notes 08-23-2021 to 05-02-2025 Alistair Mcnally MD - 04/01/2025 4:00 PM EDTTelephone Encounter - Charles Dudley RN - 03/24/2025 4:17 PM EDTTelephone Encounter - Charles Dudley RN - 03/24/2025 4:17 PM EDTPatient Instructions Note Date & Type Note Facility 05-02-2025 Note HNO ID: [id number] Author: NOHEMY RAMIREZ PSYD Service: ? Author Type: Psychologist Type: Progress Notes Filed: 05/05/2025 14:45 Note Text: [facility] Behavioral Medicine Group Session Patient Name: Ruth Smith CC#: [id number] Date of service: May 02, 2025 I have communicated my name and active licensure. The patient's identity and physical location were verified at the time of this visit. Either the patient or their legal auto claim representative has been informed of the risks and benefits of -- and alternatives to -- treatment through virtual visit and consents to proceed with the session remotely. The patient e-signed the Informed Consent for Psychological Evaluation AND Care Form, and the [facility] health care insurance benefits, fees for service, emergency procedures, and the limits of confidentiality that may pertain with any given case were discussed with the patient. The patient was given a copy of the consent form on [email or web address]. The patient consented to a virtual visit and their location was confirmed. Patient location: Ruth Smith [id number] [place] [id number] Subjective: Patient participated in a cognitive and behavioral group focused on coping with chronic pain. The goal of the following treatment is to improve the patient's health and well-being via cognitive, behavioral, social and/or psychophysiological procedures designed to ameliorate pain related problems. Group members received an orientation to the group, including group rules, expectations and the limits of confidentiality. Patients were reminded of the limits of confidentiality in the group setting and agreed to hold in confidence all matters discussed in the group. Group materials were distributed including an assessment form to evaluate Pain Catastrophizing and to target negative thought patterns related to pain. Additional materials included a personalized relapse prevention plan and goal setting sheet. Group session included psychoeducation related to the pain and stress response, experiential practice/learning of relaxation technique of deep breathing, orientation to the cognitive and behavioral model of pain and skill building (reframing negative thoughts, de-escalating negative emotions and identifying soothing actions). Objective: Affect is appropriate. The patient paid good attention during the group and did verbalize understanding of the material presented. Medications: Current Outpatient Medications Medication Sig DULoxetine [...] No current facility-administered medications for this visit. A: (F32.1) Current moderate episode of major depressive disorder without prior episode (HCC) (primary encounter diagnosis) (M54.16) Radiculopathy, lumbar region (E11.42) Diabetic peripheral neuropathy (HCC) (D69.6) Thrombocytopenia (Z96.641) History of total right hip replacement (Z98.890) H/O lumbar discectomy P: Class materials sent by My Chart Nohemy Ramirez PSYD Start time 1p Stop time 2:30p [facility] 04-01-2025 History of Presen t illness Narrative [...] visit. Either the patient or their legal auto claim representative has been informed of the risks and benefits of -- and alternatives to -- treatment through a remote evaluation and consents to proceed with the evaluation remotely. SUBJECTIVE Ruth Smith with PAST MEDICAL HISTORY Diagnosis Date Bipolar 1 disorder (HCC) Cirrhosis (HCC) Colon cancer (HCC) Diabetes (HCC) Hypertension Splenomegaly presents to [facility] Pain Management Department for a follow-up appointment [...] Education Heat Imagery Music Pillow support Positioning Ava Smith is a 54-year-old male with a history of chronic pain, presenting for follow-up. Ava reports a significant increase in pain over [...] a pillow under his leg for support. Ava is on multiple medications for pain management, [...] denies using any other medications for pain. Ava is also using ketamine wax squares, obtained online through a friend's mother, primarily for depression rather than pain management. He has a follow-up appointment with a pain psychologist and is scheduled for an EMG on April 28 in [place], although he expresses concern about his ability to make the trip due to his current pain level. Additionally, Ava is experiencing difficulty with ambulation and reports [...] 60 mg daily. - Obtain EMG at [facility]. - Follow-up in 4 weeks, virtual [...] - EMG scheduled for April 28 in [place]. - Advised patient to go to the [...] medical decision making. documented in this encounter [facility] 04-01-2025 Note HNO ID: [id number] Author: ALISTAIR MCNALLY MD Service: ? Author Type: Physician Type: Progress Notes Filed: 04/01/2025 16:14 Note Text: [facility] Virtual Encounter Evaluation Patient consented to the encounter being held via [employer] Alistair Mcnally and Ruth Smith are present during telemedicine encounter I have communicated my name and active licensure. The patient's identity and physical location were verified at the time of this visit. Either the patient or their legal auto claim representative has been informed of the risks and benefits of -- and alternatives to -- treatment through a remote evaluation and consents to proceed with the evaluation remotely. SUBJECTIVE Ruth Smith with PAST MEDICAL HISTORY Diagnosis Date Bipolar 1 disorder (HCC) Cirrhosis (HCC) Colon cancer (HCC) Diabetes (HCC) Hypertension Splenomegaly presents to [facility] Pain Management Department for a follow-up appointment [...] Education Heat Imagery Music Pillow support Positioning Ava Smith is a 54-year-old male with a history of chronic pain, presenting for follow-up. Ava reports a significant increase in pain over [...] a pillow under his leg for support. Ava is on multiple medications for pain management, [...] denies using any other medications for pain. Ava is also using ketamine wax squares, obtained online through a friend's mother, primarily for depression rather than pain management. He has a follow-up appointment with a pain psychologist and is scheduled for an EMG on April 28 in [place], although he expresses concern about his ability to make the trip due to his current pain level. Additionally, Ava is experiencing difficulty with ambulation and reports [...] 60 mg daily. - Obtain EMG at [facility]. - Follow-up in 4 weeks, virtual [...] right hip replacemen (more content not included)... [facility] 03-24-2025 Telephone encounter Note Noted Dr. Mcnally's 02/21/25 plan. Pt's appt. Virtual is scheduled 04/01/25.Message sent to Dr. Mcnally and LUIS Li [facility] 03-24-[address] Mcnally's 02/21/25 [...] with Dr Mcnally. documented in this encounter [facility] 03-24-2025 Telephone encounter Note Patient is inquiring if Dr Mcnally will prescribe Gabapentin which he is in need of from a previous Provider. Patient is stating that his pain has increased and is inquiring if Dr Mcnally will prescribe any pain med or Prednisone. Patient is inquiring if he still needs his upcoming appointment with Dr Mcnally. [facility] 03-24-2025 History of Presen t illness Narrative Images from the original note were not included. [address] [place] [id number] Patient: Ruth Smith Date of : 1970 [...] cough from lisinopril Chronic pain disorder Cirrhosis ([facility]) Colon cancer ([facility]) 2018 COPD (chronic obstructive pulmonary disease) ([facility]) Depression Diabetes mellitus type 2, controlled ([facility]) Fibromyalgia, primary Fracture of right hip, closed, initial encounter ([facility]) 01/17/2024 GERD (gastroesophageal reflux disease) Hyperlipidemia Hypertension Infectious viral hepatitis 2018 Inflammatory bowel disease 2018 Insulin-treated type 2 diabetes mellitus ([facility]) Joint pain Kidney stones Liver disease Low back pain Neck pain Obesity Osteoarthritis Peptic ulceration 1994 Peripheral neuropathy 2016 Visual impairment Past Surgical History: Procedure Laterality Date BACK SURGERY 1999 Dr. Veto [facility] L5 ruptured disc per patient COLON SURGERY resection, 2017, [facility] COLONOSCOPY 2021 CYSTOSCOPY N/A 01/29/2025 Performed by Marc Alves MD at [facility] DAVINCI REPAIR HERNIA VENTRAL N/A 10/27/2021 Performed by Ridge Cedillo MD at [facility] DENTAL SURGERY pt had all teeth removed FRACTURE SURGERY 2023 Hip,and femur INGUINAL HERNIA REPAIR 2019 INSERTION INTRAMEDULLARY NAIL FEMUR Right 01/30/2024 Performed by Ang Figueroa MD at [facility] INSERTION INTRAMEDULLARY NAIL FEMUR-TFNA HIP FX Right 01/18/2024 Performed by Ang Figueroa MD at [facility] ORTHOPEDIC SURGERY 2008 foot, infected foot REMOVAL HARDWARE INTRAMEDULLARY NAIL/KATERYNA FEMUR Right 01/30/2024 Performed by Ang Figueroa MD at [facility] SMALL INTESTINE SURGERY 2018 UMBILICAL HERNIA REPAIR [...] total) by mouth once daily at bedtime. Surveying And Mapping (SAM) G7 SENSOR device DULoxetine (CYMBALTA) 30 mg [...] accessory muscles. Neurologic NON-focal Assessment and Plan: Ava was seen today for follow-up. Diagnoses and [...] what sounds to be an ablation with [facility], he will call and cancel. At his [...] for your understanding. documented in this encounter [facility] 03-24-2025 Note HNO ID: [id number] Author: ASHLEY LEMA LSW Service: ? Author Type: Mortgage Loan Closer Type: Progress Notes Filed: 03/24/2025 08:13 Note Text: deferred Patient's name appears on the PRO [facility]ig report for a PHQ-9 score of 13. Patient completed this questionnaire for Psychiatry appt on 03/19/25 with Nohemy Ramirez PSYD. PHQ-9 score was addressed during this appt. SW follow up not indicated. NEAL Chow [facility] 03-24-2025 History of Presen t illness Narrative deferred Patient's name appears on the PRO Taussig report for a PHQ-9 score of 13. Patient completed this questionnaire for Psychiatry appt on 03/19/25 with Nohemy Ramirez PSYD. PHQ-9 score was addressed during this appt. SW follow up not indicated. NEAL Chow documented in this encounter [facility] 03-19-2025 Note HNO ID: [id number] Author: NOHEMY RAMIREZ PSYD Service: ? Author Type: Psychologist Type: Progress Notes Filed: 03/19/2025 11:58 Note Text: THE [facility] for Comprehensive Pain Recovery Psychological Evaluation March 19, 2025 Ruth Smith [facility]#: [id number] CPT Code: 60903 Psychiatric diagnostic evaluation Appointment Start: 10 AM I have communicated my name and active licensure. The patient's identity and physical location were verified at the time of this visit. Either the patient or their legal auto claim representative has been informed of the risks and benefits of -- and alternatives to -- treatment through virtual visit and consents to proceed with the session remotely. The patient e-signed the Informed Consent for Psychological Evaluation AND Care Form, and the [facility] health care insurance benefits, fees for service, emergency procedures, and the limits of confidentiality that may pertain with any given case were discussed with the patient. The patient was given a copy of the consent form on enGreett. The patient consented to a virtual visit and their location was confirmed. 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 He was referred by Jaycob Mcnally MD for psychological evaluation in the context of chronic pain. This consultation was shared with the referral source via the [facility] electronic medical record. Limits to confidentiality were [...] to ameliorate pain related problems. Chief complaints: Ava complains of low back pain radiating into [...] the lumbar spine. Last year in January, Ava santamaria fell and fractured his right hip and right femur. He (more content not included)... [facility] 02-21-2025 Note HNO ID: [id number] Author: ASHLEY LEMA LSW Service: ? Author Type: Mortgage Loan Closer Type: Progress Notes Filed: 02/21/2025 15:13 Note Text: Unable To Reach Patient Patient's name appears on the PRO Taussig report for PHQ-9 score of 19. SW was unable to reach Patient for follow up. NEAL Chow [facility] 02-21-2025 History of Presen t illness Narrative Unable To Reach Patient Patient's name appears on the PRO Taussig report for PHQ-9 score of 19. SW was unable to reach Patient for follow up. NEAL Chow documented in this encounter [facility] 02-21-2025 Note HNO ID: [id number] Author: ALISTAIR MCNALLY MD Service: ? Author Type: Physician Type: Progress Notes Filed: 02/21/2025 16:10 Note Text: [facility] Pain Management Department Follow-Up Evaluation Chief Complaint: [...] is worse. Pain score today: 8/10 = Ava Smith is a 54-year-old male with a history of chronic lower back pain and neuropathy, presenting for worsening pain and neuropathy. Ava reports persistent lower back pain radiating to the buttocks, right leg, calf, and occasionally the ankle. The pain has intensified, now described as an electric sensation shooting up the core with each step. He also experiences pain in the hip, knee, and calf, with severe episodes extending to the ankle. Ava has a history of neuropathy in the lower extremities for over 7-8 years, initially starting in the outer toes and progressively affecting all toes and feet. He reports numbness in the legs when sitting, particularly on the commode, requiring 10-15 minutes to regain sensation. Ava underwent two surgeries last year, including a [...] a facility closer to his residence in [place]. Ava is currently on duloxetine 30 mg daily [...] temporary relief. - Scheduled repeat epidural at [facility], [address]. - Initiated duloxetine 30 mg PO daily. [...] to pain psych (more content not included)... [facility] 02-21-2025 History of Presen t illness Narrative Images from the original note were not included. [facility] Pain Management Department Follow-Up Evaluation Chief Complaint: [...] is worse. Pain score today: 8/10 = Ava Smith is a 54-year-old male with a history of chronic lower back pain and neuropathy, presenting for worsening pain and neuropathy. Ava reports persistent lower back pain radiating to the buttocks, right leg, calf, and occasionally the ankle. The pain has intensified, now described as an electric sensation shooting up the core with each step. He also experiences pain in the hip, knee, and calf, with severe episodes extending to the ankle. Ava has a history of neuropathy in the lower extremities for over 7-8 years, initially starting in the outer toes and progressively affecting all toes and feet. He reports numbness in the legs when sitting, particularly on the commode, requiring 10-15 minutes to regain sensation. Ava underwent two surgeries last year, including a [...] a facility closer to his residence in [place]. Ava is currently on duloxetine 30 mg daily [...] temporary relief. - Scheduled repeat epidural at [facility], [address]. - Initiated duloxetine 30 mg PO daily. [...] 60 mg daily. - Obtain EMG at [facility]. - Follow-up in 4 weeks, virtual appointment [...] have been input by my medical records administrator, resident, fellow, nurse, or nurse practitioner and [...] See Comments Insulin Glargine GI Upset agnieszkaaglar Current Medications: DULoxetine (CYMBALTA) 30 mg capsule [...] medical decision making. documented in this encounter [facility] 02-21-2025 Instructions Alistair Mcnally MD - 02/21/2025 [...] will send the order to [facility], as requested. - I increased your duloxetine [...] changes or concerns. documented in this encounter [facility] 02-20-2025 Instructions Zac Crouch MD - 02/20/2025 3:01 PM EDT Blood work today F/u in 6 months documented in this encounter [facility] 02-20-2025 History of Presen t illness Narrative PATIENT NAME: Ruth Smith CLINIC NO.: [id number] ATTENDING PHYSICIAN: Zac Crouch MD DATE OF SERVICE: November 28, [address] Abrahan Rinaldi [address] [facility] [address] thank you for referring Ruth Smith for [...] Range Status 11/28/2024 6.0 % Final Abs Mathews Date Value Ref Range Status 11/28/2024 0.52 [...] in [address] Abrahan Rinaldi [address] [place] [address] thank you for allowing me to participate in Ruthmae Smith [facility], if there are any questions or concerns please do not hesitate to contact me at the number below. I spent a total of 20 minutes on the date of the service which included preparing to see the patient, [id number] patient care, completing clinical documentation, obtaining and/or reviewing separately obtained history, performing a medically appropriate examination, counseling and educating the patient/family/caregiver, ordering medications, tests, or procedures, communicating with other HCPs (not separately reported), independently interpreting results (not separately reported), communicating results to the patient/family/caregiver, and care coordination (not separately reported). Zac Crouch MD. Hematology/Medical Oncology [place] [address] [phone] CC: documented in this encounter [facility] 02-20-2025 Note HNO ID: [id number] Author: ZAC CROUCH MD Service: ? Author Type: Physician Type: Progress Notes Filed: 02/20/2025 16:15 Note Text: PATIENT NAME: Ruth [facility] NO.: [id number] ATTENDING PHYSICIAN: Zac Crouch MD DATE OF SERVICE: November 28, [address] Abrahan Rinaldi [address] [place] [address] thank you for referring Ruth Smith for [...] Eyes: Anicteric s (more content not included)... [facility] 01-29-2025 Miscellaneous Notes Return the office 4-6 weeks documented in this encounter [facility] 01-29-2025 Telephone encounter Note Return the office 4-6 weeks [facility] Work Phone: 01-15-2025 Instructions Ne Vega RN - 01/15/2025 1:30 PM EDT Preoperative Education Checklist- General Surgery date: 01/29/25 Surgery time: 830a Arrival time: 630a 1. Bring a photo ID and your insurance card with you the day of surgery. You will check in at the main lobby of the [facility]- registration desk is straight ahead as soon as you walk in. Tell them you are here for surgery. 2. If you have a Living Will/Durable Power of Plating Foreman for Health Care that is not on [...] after you have bathed. 5. NO nail georgian/acrylic on at least one finger. If you are having a hand, wrist or foot surgery then all nail georgian and artificial/acrylic nails must be removed from [...] please call the Preadmission Testing office at [phone], Mon.-Fri. 7 a.m.-3 p.m. Leave a voicemail [...] with your doctor. documented in this encounter [facility] 01-13-2025 Instructions Alistair Mcnally MD - 01/13/2025 9:10 PM EDT We discussed your chronic back and leg pain: - I recommend trying another epidural steroid injection to help manage your pain. I will perform this procedure at the [facility] [address] Please call [phone] (option 2) to schedule this. - I prescribed Duloxetine 30 mg, to be taken once daily. This medication may help alleviate nerve pain. The prescription has been sent to your pharmacy. - You may consider care management coordinator or massage therapy if you find it helpful. These are safe options, but ensure they are affordable and sustainable for you. We discussed additional pain management options: - I recommend enrolling in the Empowered Relief course, a two-hour virtual program that focuses on managing chronic pain through a biopsychological approach. You will receive a scheduling ticket through [employer] to sign up. - I have added [...] You will receive a scheduling ticket through [employer] to set this up. Next steps: - [...] questions or concerns. documented in this encounter [facility] 01-13-2025 History of Presen t illness Narrative Images from the original note were not included. [facility] for Comprehensive Pain Recovery [facility] [place] January 13, 2025 I have communicated my name and active licensure. The patient's identity and physical location were verified at the time of this visit. Either the patient or their legal auto claim representative has been informed of the risks and benefits of -- and alternatives to -- treatment through a remote evaluation and consents to proceed with the evaluation remotely. The patient consented to the use of ModaMi software for draft documentation of the visit consistent with [facility]'s Notice of Privacy Practices. = Ruth Smith is a 54 year old single disabled x since 2012 (spine surg 2000 + nerve damage) years who lives with self in [place], [place]. He was referred by No referring provider defined for this encounter. Chief complaint: No chief complaint on file. SUBJECTIVE: Ava is a 54-year-old male with a history of chronic back pain, presenting for evaluation of worsening pain and neuropathy. Ava reports a significant increase in lower back pain radiating to the buttocks, right leg, calf, and occasionally the ankle, with intermittent pain in the left buttock and leg, not extending beyond the knee. This pain has been present since a hip fracture in January of the previous year, followed by a fall during rehabilitation that resulted in a femur fracture in three places. Ava suspects the pain may be related to [...] atrial fibrillation, elevated intracranial pressure, or hyperthyroidism. Ava has tried various treatments, including a facet joint injection, which worsened leg pain, and an epidural steroid injection by Dr. Pisano, which provided temporary relief for 1-2 days before the pain returned and worsened. He also reports increased pain after the injections. He has not tried care management coordinator, massage, or acupuncture. He spends more than [...] with past use of marijuana in college. Ava has a history of a microdiscectomy at [...] history of aortic stenosis or liver failure. 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 He is on a fixed income with disability and reports financial stress due to medical bills. He has a strong support system from his kash aviles's family. 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 R L5 TFESI on 12/16/24, no follow up with dept since Spine Red Flag Ruth Smith has no red flag symptoms. Anesthesia: No Schizophrenia: No : NA CHF: No Uncontrolled HTN: No Recent [place]: Yes - started with pain Arrythmias: No [...] MR dated 08/26/2024. 11/03/24 XR LUMBAR IMPRESSION: Goqj-ep-zkvufmeq degenerative changes and slight retrolisthesis L3 on [...] temporary relief. - Scheduled repeat epidural at [facility], and [place]. - Initiated duloxetine 30 mg PO daily. [...] which included preparing to see the patient, aynf-nf-xfxq patient care, completing clinical documentation, and counseling and educating the patient/family/caregiver. Alistair Mcnally MD Important Patient Information: 1. To schedule Pain Recovery appointments or post-injection office visits, please call: [phone] 2. The nursing staff and medical assistants are an integral part of your pain recovery team and will be handling your phone calls and inquiries. 3. Your study results and treatment plan will be discussed during a follow-up appointment. If you do not have a follow-up appointment and wish to discuss any issues directly with me, please call: [phone] to set-up an appointment. 4. [email or web address] is best used for refill requests or yes or no questions. Anything more complicated will likely require a follow-up appointment that you can schedule by [phone]. 5. If you are scheduled for a ketamine infusion, you will be contacted regarding specific scheduling instructions in the future by our department. There is no need to contact our department regarding the scheduling process or your estimated wait; you will be contacted once there is an opening. documented in this encounter [facility] 01-13-2025 Note HNO ID: [id number] Author: ALISTAIR MCNALLY MD Service: ? Author Type: Physician Type: Progress Notes Filed: 01/13/2025 21:15 Note Text: THE [facility] for Comprehensive Pain Recovery [facility] [place] January 13, 2025 I have communicated my name and active licensure. The patient's identity and physical location were verified at the time of this visit. Either the patient or their legal auto claim representative has been informed of the risks and benefits of -- and alternatives to -- treatment through a remote evaluation and consents to proceed with the evaluation remotely. The patient consented to the use of ambient TRSB Groupe software for draft documentation of the visit consistent with [facility]'s Notice of Privacy Practices. = Ruth Smith is a 54 year old single disabled x since 2012 (spine surg 2000 + nerve damage) years who lives with self in [place], [place]. He was referred by No referring provider defined for this encounter. Chief complaint: No chief complaint on file. SUBJECTIVE: Ava is a 54-year-old male with a history of chronic back pain, presenting for evaluation of worsening pain and neuropathy. Ava reports a significant increase in lower back pain radiating to the buttocks, right leg, calf, and occasionally the ankle, with intermittent pain in the left buttock and leg, not extending beyond the knee. This pain has been present since a hip fracture in January of the previous year, followed by a fall during rehabilitation that resulted in a femur fracture in three places. Ava suspects the pain may be related to [...] atrial fibrillation, elevated intracranial pressure, or hyperthyroidism. Ava has tried various treatments, including a facet joint injection, which worsened leg pain, and an epidural steroid injection by Dr. Pisano, which provided temporary relief for 1-2 days before the pain returned and worsened. He also reports increased pain after the injections. He has not tried care management coordinator, massage, or acupuncture. He spends more than [...] with past use of marijuana in college. Ava has a history of a microdiscectomy at [...] history of aortic stenosis or liver failure. 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 He is on a fixed income with disability and reports financial stress due to medical bills. He has a strong support system from his frie, nd's family. 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 R L5 TFESI on 12/16/24, no follow up with dept since Spine Red Flag Ruth Smith has no red flag symptoms. Anesthesia: No Schizophrenia: No : NA CHF: No Uncontrolled HTN: No Recent [place]: Yes - started with pain Arrythmias: No [...] sofa, ottoman, etc.) (more content not included)... [facility] 12-19-2024 Telephone encounter Note Patient calling back reporting 50% pain relief- mostly in the lower back. Unable to give a percentage of functional improvement. States he has been sick for the last coupe days and has not been out of bed much. He has VV with Komal Hernadez on 01/03. Will schedule 4-6 week follow up at that visit per patient. [facility] 12-19-2024 Miscellaneous Notes Patient calling back reporting [...] for follow up. documented in this encounter [facility] 12-18-2024 Telephone encounter Note Message left for patient to call in with an update. Please document the % (40%, 50%,etc) of improvement and any functional improvement since his procedure with Dr. Rinaldi on 12/16/24. Right L5-S1 Transforaminal Epidural Steroid injection # 1 Pre pain: 8 Post pain: 7 Plan: Return to clinic in 4-6 weeks for follow up. [facility] 12-12-2024 Radiology Diagnostic study note [facility] [address] [place] [address] Ultrasound Report Signed Patient: Ruth Smith MR #: [id number] : 1970 Acct:[id number] Age/Sex: 54 / M ADM Date: 5 Loc: Room: Type: [facility] Attending Dr: Guillermo Thornton MD Ordering [...] Kuo M.D. 12/12/2024 7:59 PM Dictation Location: [place] [address] Tech: Keren Hope Transcribed By: YAZ 12/12/241958 Dictated By: Thierry Kuo MD 12/12/241954 Signed By: 12/12/241958 [facility] Work Phone: 12-05-2024 Evaluation note Diagnosis Onset Date Resolution Cirrhosis acute December 05 1:16pm Esophageal varices acute December 05, 2024 1:16pm GERD (gastroesophageal reflux disease) acute December 05, 2024 1:16pm Hepatic encephalopathy acute Ap 2024 1:16pm Irritable bowel syndrome with diarrhea acute December 05, 2024 1:16pm Personal history of colon cancer acute December 05, 2024 1:16pm [facility] Work Phone: [phone]) 712-853704-23-2025 Evaluation + Plan note* Assessment & Plan Note - HUBERT Wright - 12/04/2024 4:15 PM EDTAssociated Problem(s): Difficulty urinating We discussed that he may need urodynamics as well. [facility] [id number] Miscellaneous Notes* Assessment & Plan Note - HUBERT Wright - 12/04/2024 4:15 PM EDTAssociated Problem(s): Difficulty urinating We discussed that he may need urodynamics as well. [facility] History of Present illness Narrative* HUBERT Wright - 12/04/2024 3:30 PM EDT Images from the original note were not included. [address] [facility] [address] [facility] [id number] Patient: Ruth Smith Date of : 1970 [...] No prior urologic history. He is seeing [facility] for the back pain and is [...] from lisinopril Chronic pain disorder Colon cancer ([facility]) 2018 COPD (chronic obstructive pulmonary disease) ([facility]) Depression Diabetes mellitus type 2, controlled ([facility]) Fibromyalgia, primary Fracture of right hip, closed, initial encounter ([facility]) 01/17/2024 GERD (gastroesophageal reflux disease) Hyperlipidemia Hypertension Infectious viral hepatitis 2017 Inflammatory bowel disease 2018 Insulin-treated type 2 diabetes mellitus ([facility]) Joint pain Kidney stones Liver disease Low back pain Neck pain Obesity Osteoarthritis Peptic ulceration 1995 Peripheral neuropathy 2016 Visual impairment Past Surgical History: Procedure Laterality Date BACK SURGERY 1999 Dr. Veto Priest-[facility] L5 ruptured disc per patient COLON SURGERY resection, 2017, [facility] COLONOSCOPY 2021 DAVINCI REPAIR HERNIA VENTRAL N/A 10/27/2021 Performed by Ridge Cedillo MD at [facility] DENTAL SURGERY pt had all teeth removed FRACTURE SURGERY 2023 Hip,and femur HERNIA REPAIR x's 2 INGUINAL HERNIA REPAIR 2019 INSERTION INTRAMEDULLARY NAIL FEMUR Right 01/30/2024 Performed by Ang Figueroa MD at [facility] INSERTION INTRAMEDULLARY NAIL FEMUR-TFNA HIP FX Right 01/18/2024 Performed by Ang Figueroa MD at [facility] ORTHOPEDIC SURGERY 2007 foot, infected foot REMOVAL HARDWARE INTRAMEDULLARY NAIL/KATERYNA FEMUR Right 01/30/2024 Performed by Ang Figueroa MD at [facility] SMALL INTESTINE SURGERY 2018 SPINE SURGERY [...] note and vitals reviewed. Assessment and Plan: Ava was seen today for difficulty urinating. Diagnoses and all orders for this visit: Benign prostatic hyperplasia, unspecified whether lower urinary tract symptoms present - Measure post void residual - Prostatic specific antigen, diagnostic; Future Difficulty urinating - [facility] - [place], [place] - Measure post void residual Problem [...] what sounds to be an ablation with [facility], he will call and cancel. At his [...] you for your understanding. HUBERT Wright 12/04/24 1165 documented in this encounterFisher-[facility]04-21-2025 Telephone encounter Note* Telephone Encounter - Brennen Agrawal - 12/02/2024 9:15 AM EDT Right L5-S1 RUTH ESPOSITO [id number] ALIYAH BERENGER 5/5 -THINNERS +DM Patient was made aware that the ASC will call the day prior to scheduled procedure between the hours of 12 and 4 pm to advise patient of arrival time the day of procedure. 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 on the day of their procedure, and procedure will be cancelled if they arrive without a responsible adult to transport them home from the procedure. Patient advised that all medication management instructions prior to procedure will need addressed by clinical staff. Patient expresses understanding with no further questions or concerns at this time. [facility]04-21-2025 Miscellaneous Notes* Telephone Encounter - Brennen Agrawal - 12/02/2024 9:15 AM EDT Right L5-S1 AVA ESPOSITOERY [id number] ALIYAH BERENGER 5/5 -THINNERS +DM Patient was made aware that the ASC will call the day prior to scheduled procedure between the hours of 12 and 4 pm to advise patient of arrival time the day of procedure. 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 on the day of their procedure, and procedure will be cancelled if they arrive without a responsible adult to transport them home from the procedure. Patient advised that all medication management instructions prior to procedure will need addressed by clinical staff. Patient expresses understanding with no further questions or concerns at this time. documented in this encounterMarietta Osteopathic Clinic04-17-2025 Instructions* Patient Instructions* Zac Crouch MD - 11/28/2024 4:02 PM EDT Labs today Start OTC MVT supplements 1 tab daily F/u in 3 months documented in this encounterMarietta Osteopathic Clinic04-17-2025 History of Present illness Narrative* Zac Crouch MD - 11/28/2024 4:00 PM EDT PATIENT NAME: Ruth Smith CLINIC NO.: [id number] ATTENDING PHYSICIAN: Zac Crouch MD DATE OF SERVICE: November 28, [address] Abrahan Rinaldi [address] [facility] [address] thank you for referring Rtuh Smith for an opinion regarding Thrombocytoopenia. CHIEF [...] Wt 105 kg (231 lb 7.7 oz) FgE715% BMI 30.54 kg/m There were no vitals [...] Range Status 11/28/2024 6.0 % Final Abs Mathews Date Value Ref Range Status 11/28/2024 0.52 [...] in [address] Abrahan Rinaldi [address] [facility] [address] thank you for allowing me to participate in Ruth Smith care, if there are any questions or concerns please do not hesitate to contact me at the number below. I spent a total of 45 minutes on the date of the service which included preparing to see the patient, fbiu-no-brsu patient care, completing clinical documentation, obtaining and/or reviewing separately obtained history, performing a medically appropriate examination, counseling and educating the pat ient/family/caregiver, ordering medications, tests, or procedures, communicating with other HCPs (not separately reported), independently interpreting results (not separately reported), communicatingresults to the patient/family/caregiver, and care coordination (not separately reported). Zac Crouch MD. Hematology/Medical Oncology [place] [address] [phone] CC: documented in this encounterMarietta Osteopathic Clinic04-17-2025 NoteHNO ID: [id number] Author: ZAC CROUCH MD Service: ? Author Type: Physician Type: Progress Notes Filed: 11/29/2024 08:20 Note Text: PATIENT NAME: Ruth Smith CLINIC NO.: [id number] ATTENDING PHYSICIAN: Zac Crouch MD DATE OF SERVICE: November 28, [address] Abrahan Rinaldi [address] [facility] [address] thank you for referring Ruth Smith for [...] axillary or inguinal a (more content not included)...[facility]04-14-2025 Telephone encounter Note* Telephone Encounter - Zac Crouch MD - 11/25/2024 1:30 PM EDT Thank you. [facility] Work Phone: 1(957) 667-784304-14-2025 Miscellaneous Notes* Telephone Encounter - Zac Crouch [...] or Monday? Thank you. documented in this encounterMarietta Osteopathic Clinic04-14-2025 Telephone encounter Note * Telephone Encounter - Donavon De La Garza - 11/25/2024 1:04 PM EDT Spoke to patient & rescheduled him on 11/28/2024 at 1 pm. BEN Holly [facility]04-14-2025 Telephone encounter Note* Telephone Encounter - Zac Crouch MD - 11/25/2024 10:26 AM EDT Can you please reschedule him to some other time on Monday, or Monday? Thank you. [facility]04-11-2025 History of Present illness Narrative* Abrahan Rinaldi MD - 11/22/2024 2:00 PM EDT SUBJECTIVE: Mr. 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 Grid Trimmer: No Passive conservative therapy lasting 6 weeks in the last six months (see below) 1. Medical devises: No 2. Acupuncture: No 3. Tens unit: No 4. Prescription pain medication: Yes 5. 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 Colonic stool burden is moderate. IMPRESSION: Rsen-hp-qdhogbwe degenerative changes and slight retrolisthesis L3 on [...] ORIF . He then fell at the long-term and fracture below his arthroplasty ([facility], Cleaning). [...] which included preparing to see the patient, mhrx-tr-bocq patient care, completing clinical documentation, obtaining and/or reviewing separately obtained history, performing a medically appropriate examination, counseling and educating the pat ient/family/caregiver, ordering medications, tests, or procedures, communicating with other HCPs (not separately reported), independently interpreting results (not separately reported), and communicating results to the patient/family/caregiver. Abrahan Rinaldi MD documented in this encounterMarietta Osteopathic Clinic04-11-2025 NoteHNO ID: [id number] Author: ABRAHAN RINALDI MD Service: ? Author Type: Physician Type: Progress Notes Filed: 11/25/2024 08:23 Note Text: SUBJECTIVE: Mr. 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 Grid Trimmer: No Passive conservative therapy lasting 6 weeks in the last six months (see below) 1. Medical devises: No 2. Acupuncture: No 3. Tens unit: No 4. Prescription pain medication: Yes 5. NSAIDS: Yes OCCUPATIONAL HISTORY: [employer] HISTORY OF TRAUMA/OVERUSE OF AREA: No REVIEW [...] PAST SURGICAL HISTORY OF back injections EXAMINATION: JBYDRTOL-VUNXOEE-DWIFETBGZ: Scoliosis: No Pelvic Tilt: No Leg Length [...] masses, organomegaly EXTREMITIES: Extremitie (more content not included)...[facility] 11-08-2024 Instructions* Patient Instructions* Martha Faulkner APRN.ELIANE - 11/08/2024 4:32 PM EDT Images from the original note were not included. - Contact the Spine Center at [phone] to schedule an appointment. Ask for the location closestto [place]. - Obtain copies of your recent ER x-ray images and the MRI from August on a disc to bring to your Spine Center appointment. - [facility] get a [facility] of [facility] [...] Bodyw Mov Ther. 2012;16(2):236-43. Accessed 12/26/2012 . [employer]. Low Back Pain Exercise Guide. Accessed 12/26/2012. ?Copyright 2476-4464 [employer]. All rights reserved documented in this encounterMarietta Osteopathic Clinic03-28-2025 NoteHNO ID: [id number] Author: MARTHA FAULKNER APRN.CNP Service: ? Author Type: Nurse Practitioner Type: Progress Notes Filed: 11/08/2024 16:33 Note Text: Telemedicine Visit - Distance Health Virtual Visit Note Patient seen on [employer] Video Visit platform. Location of patient: [place] I have communicated my name and active licensure. The patient's identity and physical location were verified at the time of this visit. Either the patient or their legal auto claim representative has been informed of the risks [...] further evaluation and management; provided contact number [phone] for scheduling. - Advised patient to obtain copies of recent MRI and X-ray images to bring to the Spine Center appointment. - Also referred to Pain Management for comprehensive pain control. - Discussed potential treatment options including surgical and non-surgical interventions. Orders Placed This Encounter CONSULT TO [facility]INE MEDICAL CENTER Standing Status: Future Expiration Date: 11/08/2025 Scheduling Instructions: please call [phone] for scheduling Does consulting provider have [facility] Epic access?: Yes CONSULT PAIN MGMT Order Comments: PLEASE CALL:[phone] FOR AN APPOINTMENT Standing Status: Future Scheduling Instructions: Please select the clinical reason(s) for this consult to Pain Management: Evaluate and treat. Transfer pain medication prescribing to referring provider when patient on stable medication plan. Location: [facility]: [address] [place] [address] [place] [place], Does consulting provider have [facility] [employer] access?: Yes Attestation The patient consented to the use of ambient AI software for draft documentation of the visit consistent with [facility]? Notice of Privacy Practices. - Red flags discussed for need for in person care - All questions answered Martha Faulkner, MSN, PEDIATRIC ONCOLOGY NURSE-OPTICAL ENGINEER, CUNP [facility] [facility] [place] [facility] CODING:[facility]03-28-2025 History of Present illness Narrative * Martha Faulkner APRN.OPTICAL ENGINEER - 11/08/2024 4:21 PM EDT Telemedicine Visit - Distance Health Virtual Visit Note Patient seen on [employer] Video Visit platform. Location of patient: [place] I have communicated my name and active licensure. The patient's identity and physical location wereverified at the time of this visit. Either the patient or their legal auto claim representative has been informed of the risks [...] further evaluation and management; provided contact number [phone] for scheduling. - Advised patient to obtain copies of recent MRI and X-ray images to bring to the Spine Center appointment. - Also referred to Pain Management for comprehensive pain control. - Discussed potential treatment options including surgical and non-surgical interventions. Orders Placed This Encounter CONSULT TO [facility]INE [facility] Standing Status: Future Expiration Date: 11/08/2025 Scheduling Instructions: please call [phone] for scheduling Does consulting provider have [facility] [employer] access?: Yes CONSULT PAIN MGMT Order Comments: PLEASE CALL:[phone] FOR AN APPOINTMENT Standing Status: Future Scheduling Instructions: Please select the clinical reason(s) for this consult to Pain Management: Evaluate and treat. Transfer pain medication prescribing to referring provider when patient on stable medication plan. Location: [facility]: [address] [place] [address] Rd[address] [place], Does consulting provider have [facility] [employer] access?: Yes Attestation The patient consented to the use of [employer] software for draft documentation of the visit consistent with [facility] s Notice of Privacy Practices. - Red flags discussed for need for in person care - All questions answered Martha Faulkner, MSN, PEDIATRIC ONCOLOGY NURSE-OPTICAL ENGINEER, CUNP [facility] [place] MDM CODING: documented in this encounterMarietta [facility] Clinic02-04-2025 Miscellaneous Notes* Telephone Encounter - Hannah Josh - 09/17/2024 3:58 PM EST Patient called asking if he could have the Pain management referral placed to [facility] instead of [facility]. Advised patient that I would message Marcell to let her know and once the referral is placed we will send the information over to them. Patient verbalized understanding. documented in this encounterFisher-Titus [facility] Center02-04-2025 Telephone encounter Note* Telephone Encounter - Hannah Moreno - 09/17/2024 3:58 PM EST Patient called asking if he could have the Pain management referral placed to [facility] instead of [facility]. Advised patient that I would message Marcell to let her know and once the referral is placed we will send the information over to them. Patient verbalized understanding. [facility]01-15-2025 Miscellaneous Notes* Telephone Encounter - DAGO High - 08/28/2024 7:36 AM EST Refill sent. Patient's MRI was scheduled 08/27/2024 through [facility], awaiting result. documented in this encounterFisher-Titus Medical Center01-15-2025 Telephone encounter Note* Telephone Encounter - DAGO High - 08/28/2024 7:36 AM EST Refill sent. Patient's MRI was scheduled 08/27/2024 through [facility], awaiting result. [facility] [id number] History of Present illness Narrative* Komal Slade MA - 08/05/2024 2:00 PM EST Images from the original note were not included. Reason for Appointment: EMG Patient: Ruth Smith : 1970 EMG Computer: [employer] Referring Physician: Marcell Badillo CNP EMG: PRETTY chicken fancier: Komal Slade CMA Office Location: [place] Reason for EMG: c/o neck pain that radiates down the left arm. Weakness in the hands L>R. Paresthesia. Hx of DM, not taking blood thinners. Comments: Procedure explained to the patient who expressed understanding. documented in this encounterCarondelet [id number] Miscellaneous Notes* Telephone Encounter - DAGO Clay - 08/05/2024 10:34 AM EST For you * Telephone Encounter - DAGO High - 08/05/2024 10:34 AM EST See telephone note. documented in this encounterFisher-Titus Medical Center12-23-2024 Telephone encounter Note* Telephone Encounter - DAGO Clay - 08/05/2024 10:34 AM EST For you [facility] Work Phone: [phone]) 926-645212-23-2024 Telephone encounter Note* Telephone Encounter - DAGO High - 08/05/2024 10:34 AM EST See telephone note. [employer]12-12-2024 History of Present illness Narrative* Marcell Kraft [...] from lisinopril Chronic pain disorder Colon cancer ([facility]) 2018 COPD (chronic obstructive pulmonary disease) ([facility]) Depression Diabetes mellitus type 2, controlled ([facility]) Fibromyalgia, primary Fracture of right hip, closed, initial encounter ([facility]) 01/17/2024 GERD (gastroesophageal reflux disease) Hyperlipidemia Hypertension Insulin-treated type 2 diabetes mellitus ([facility]) Joint pain Kidney stones Liver disease Low back pain Neck pain Obesity Osteoarthritis Visual impairment Past Surgical History: Procedure Laterality Date BACK SURGERY 1999 Dr. Veto Priest-[facility] L5 ruptured disc per patient COLON SURGERY resection, 2018, [facility] DAVINCI REPAIR HERNIA VENTRAL N/A 10/27/2021 Performed by Ridge Cedillo MD at [facility] DENTAL SURGERY pt had all teeth removed HERNIA REPAIR x's 2 INSERTION INTRAMEDULLARY NAIL FEMUR Right 01/30/2024 Performed by Ang Figueroa MD at [facility] INSERTION INTRAMEDULLARY NAIL FEMUR-TFNA HIP FX Right 01/18/2024 Performed by Ang Figueroa MD at [facility] ORTHOPEDIC SURGERY 2008 foot, infected foot REMOVAL HARDWARE INTRAMEDULLARY NAIL/KATERYNA FEMUR Right 01/30/2024 Performed by Ang Figueroa MD at [facility] Social History Tobacco Use Smoking status: [...] mg/mL) ANG FIGUEROA MD documented in this encounterFisher-Titus Medical Center12-11-2024 Miscellaneous Notes* Telephone Encounter - CARINE Apodaca - 07/24/2024 11:47 AM EST [facility] Patient called today stating that his EMG is scheduled on 08/05/24 and he hasn't heard from anyone about scheduling the MRI. I advised patient he should call central scheduling to schedule the MRI. Patient stated he will do that when we hang up. Patient also stated that his steroid and pain medicine will run out tomorrow and has to come to [place] tomorrow to see ortho. Patient stated his [...] tomorrow. [facility] documented in this encounterCopley HospitalPopdust [id number] Telephone encounter Note* Telephone Encounter - CARINE Apodaca - 07/24/2024 11:47 AM EST [facility] Patient called today stating that his EMG is scheduled on 08/05/24 and he hasn't heard from anyone about scheduling the MRI. I advised patient he should call central scheduling to schedule the MRI. Patient stated he will do that when we hang up. Patient also stated that his steroid and pain medicine will run out tomorrow and has to come to [place] tomorrow to see ortho. Patient stated his doctor is worried about him traveling all the way up here and recommended that he call for a refill of the percocet and prednisone. Patient stated that his PCP will not refill these medications since he was referred to our office. [facility] Telephone encounter Note* Telephone Encounter - DAGO High - 07/24/2024 11:47 AM EST Refills sent. He denies constipation. The highest his glucose has been is 220. Will decrease prednisone to once daily. He reports he has some swelling at his hip surgical site that he is seeing orthofor tomorrow. He will try calling [facility] to schedule MRI. [facility]12-05-20[facility] History of Present illness Narrative* DAGO High - 07/18/2024 11:00 AM EST Images from the original note were not included. [facility] Spine [facility] [address] [facility] [id number] Subjective Patient ID: Ruth Smith is a [...] week 01/2024 then home PT cadence Mar -client care specialist: none -Pain management: [facility] 04/02/2024 consult-SIJ injection discussed but patient did not return due to being there for 3.5 hours Prior lumbar injections at [facility] a couple years ago-remembers one helping his [...] soft tissue.. MRI cervical 11/13/2023 [facility] Comparison: CT cervical spine 11/01/2023 Motion artifact degrades imaging. Bony alignment: Straightening Bony lesion: None Cervical cord: No significant demyelination Skull base: Unremarkable Prevertebral soft tissues: Unremarkable Vertebral arteries: Unremarkable Cervical soft tissues: Unremarkable C1-C4: Unremarkable C4-5: Mild spondylosis with patent central canal and neural foramen. C5-6: Moderate spondylosis. Moderate diffuse disc bulge. Patent central canal. Jvqh-gj-ioocydzz bilateral neural foraminal narrowing. C6-T1: Unremarkable Impression: Moderate C5-6 spondylosis with diffuse disc bulge and mzok-nj-acugltxt bilateral neuralforaminal narrowing. MRI lumbar 04/15/2022 [facility] Findings: The bones of the lumbar spine [...] disc bulge with facet hypertrophy. There is zoqo-hh-ctuzlhhu right andmild left neural foraminal narrowing with mild spinal canal. L3-4: There is facet hypertrophy bilaterally. There is broad-based disc bulge. There is gzic-zi-ymgcsxha bilateral neural foraminal narrowing with mild spinal canal narrowing. L4-5: There is a central disc bulge with facet. There is mild spinal canal narrowing. There is mildbilateral neural foraminal narrowing. L5-S1: There is a circumferential disc bulge with endplate osteophyte formation and facet hypertrophy. There is jpld-ec-coxaxmvu bilateral neural foraminal narrowing with mild spinal canal narrowing. Impression: At L2-3 there is a broad-based disc bulge with facet hypertrophy. There is xopv-gu-bjgspena right and mild left neural foraminal narrowing with mild spinal canal. This is unchanged. At L3-4 There is broad-based disc bulge. There is zawm-ga-njvbrxfn bilateral neural foraminal narrowing with mild spinal canal narrowing. This is unchanged. At L4-5 there is a central disc bulge with facet. There is mild spinal canal narrowing. There is mild bilateral neural foraminal narrowing. This is unchanged. At L5-S1 there is a circumferential disc bulge with endplate osteophyte formation and facet hypertrophy. There is lcoc-tq-gccroxdg bilateral neural foraminal narrowing with mild spinal [...] once daily at bedtime., Disp: , Rfl: Surveying And Mapping (SAM) G7 SENSOR device, USE DIRECTED AND CHANGE [...] from lisinopril Chronic pain disorder Colon cancer ([facility]) 2018 COPD (chronic obstructive pulmonary disease) ([facility]) Depression Diabetes mellitus type 2, controlled ([facility]) Fibromyalgia, primary Fracture of right hip, closed, initial encounter ([facility]) 01/17/2024 GERD (gastroesophageal reflux disease) Hyperlipidemia Hypertension Insulin-treated type 2 diabetes mellitus ([facility]) Joint pain Kidney stones Liver disease Low [...] stretches. He does not wantto return to [facility]. Can see if he would like to return to [facility] once we confirm no surgical findings. 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 I discussed potential benefits and side effects of medication and the serious risk of overdose or even . Patient understands to not drive or operate/engage in heavy or endangering machinery/activities while taking the medication. Patient advised to avoid alcohol, benzodiazepines, opioids or another ADMINISTRATIVE ASSISTANT depressant/sedating medications while taking. Concomitant use of [...] completed. Thank you for the referral. Marcell Badillo APRN ([place]ryan)-COMMUNITY RELATIONS ADVISOR-C [facility] All questions were answered [...] DAGO High 07/18/24 1342 documented in this encounterCopley HospitaliMOSPHERE12-05-2024 Instructions* Patient Instructions* DAGO High - 07/18/2024 [...] before switching to the other temperature. Take oslv-hnu-prxegfy medicines. The use of rgxx-sks-nydualk anti-inflammatory medications, creams,ointments and patches can help [...] conditions listed above. When to notify your him specialists: If your neck pain or back pain [...] through Care Everywhere. * Quitting Smoking ED ([place]) documented in this encounterFisher[facility]11-07-[facility]24 History of Present illness Narrative* Ang Figueroa [...] from lisinopril Chronic pain disorder Colon cancer ([facility]) COPD (chronic obstructive pulmonary disease) ([facility]) Depression Diabetes mellitus type 2, controlled ([facility]) Fibromyalgia, primary Fracture of right hip, closed, initial encounter ([facility]) 01/17/2024 GERD (gastroesophageal reflux disease) Hyperlipidemia Hypertension Insulin-treated type 2 diabetes mellitus ([facility]) Joint pain Kidney stones Liver disease Low back pain Neck pain Obesity Osteoarthritis Visual impairment Past Surgical History: Procedure Laterality Date BACK SURGERY COLON SURGERY resection, 2018, [facility] DAVINCI REPAIR HERNIA VENTRAL N/A 10/27/2021 Performed by Ridge Cedillo MD at [facility] DENTAL SURGERY pt had all teeth removed HERNIA REPAIR x's 2 INSERTION INTRAMEDULLARY NAIL FEMUR Right 01/30/2024 Performed by Ang Figueroa MD at [facility] INSERTION INTRAMEDULLARY NAIL FEMUR-TFNA HIP FX Right 01/18/2024 Performed by Ang Figueroa MD at [facility] ORTHOPEDIC SURGERY 2008 foot, infected foot REMOVAL HARDWARE INTRAMEDULLARY NAIL/KATERYNA FEMUR Right 01/30/2024 Performed by Ang Figueroa MD at [facility] Social History Tobacco Use Smoking status: [...] Palpation: Non-tender to palpation over lateral joint dimethylaniline sulfator operator to palpation over medial joint line [...] completeness of the aforementioned history prepared bythe aurelia practice provider, and I personally performed the [...] mg/mL) Ang Figueroa MD documented in this encounterFisher[facility]10-23-2024 Evaluation note* Diagnosis Onset Date Resolution Status Admit Date Cirrhosis acute June 05, 2024 1:27pm GERD (gastroesophageal reflu x disease) acute June 05 1:27pm Irritable bowel syndrome wit h diarrhea acute June 05 1:27pm [facility] Work Phone: [phone]) 524-266809-05-2024 History of Present illness Narrative* Ang Figueroa [...] Follow-up 3 months with x-rays right femur Annmarie Marquez PA-C I, ANG FIGUEROA MD, personally performed the face to face evaluation on this patient. I discussed with the patient and confirmed the accuracy and completeness of the aforementioned history prepared bythe advance practice provider, and I personally performed the [...] months Ang Figueroa MD documented in this encounterFisher-[facility] Center08-22-2024 Miscellaneous Notes* Telephone Encounter - Lorena Red RN - 04/04/2024 7:34 AM EDT Received orthopedic clearance for pt to proceed with Right SI joint inj with MAC sedation. Needs scheduled Needs insurance auth * Telephone Encounter - Nikia Gannon CNA - 04/04/2024 7:34 AM EDT Attempted to schedule. Ava will call when he is able to schedule documented in this encounterFisher-Titus Medical Center08-22-2024 Telephone encounter Note* Telephone Encounter - Lorena Red RN - 04/04/2024 7:34 AM EDT Received orthopedic clearance for pt to proceed with Right SI joint inj with MAC sedation. Needs scheduled Needs insurance auth [facility]08-22-[facility] Telephone encounter Note* Telephone Encounter - Nikia Gannon CNA - 04/04/2024 7:34 AM EDT Attempted to schedule. Ava will call when he is able to schedule [facility] History of Present illness Narrative* Kaye Sauceda APRN-ELIANE - 04/02/2024 12:15 PM EDT [facility] [address] [place] [address] Patient: Ruth Smith Sex: male : 1970 [...] from lisinopril Chronic pain disorder Colon cancer ([facility]) COPD (chronic obstructive pulmonary disease) ([facility]) Depression Diabetes mellitus type 2, controlled ([facility]) Fibromyalgia, primary Fracture of right hip, closed, initial encounter ([facility]) 01/17/2024 GERD (gastroesophageal reflux disease) Hyperlipidemia Hypertension Insulin-treated type 2 diabetes mellitus ([facility]) Joint pain Kidney stones Liver disease Low back pain Neck pain Obesity Osteoarthritis Visual impairment Past Surgical History: Procedure Laterality Date BACK SURGERY COLON SURGERY resection, 2018, [facility] DAVINCI REPAIR HERNIA VENTRAL N/A 10/27/2021 Performed by Ridge Cedillo MD at [facility] DENTAL SURGERY pt had all teeth removed HERNIA REPAIR x's 2 INSERTION INTRAMEDULLARY NAIL FEMUR Right 01/30/2024 Performed by Ang Figueroa MD at [facility] INSERTION INTRAMEDULLARY NAIL FEMUR-TFNA HIP FX Right 01/18/2024 Performed by Ang Figueroa MD at [facility] ORTHOPEDIC SURGERY 2008 foot, infected foot REMOVAL HARDWARE INTRAMEDULLARY NAIL/KATERYNA FEMUR Right 01/30/2024 Performed by Ang Figueroa MD at [facility] Allergies Allergen Reactions Insulin Glargine Nausea And Vomiting and GI Disturbance madeline Family History Problem Relation Age of Onset [...] 20 min Stress: Stress Concern Present (02/03/2024) [employer] [place] [employer] - Occupational Stress Questionnaire Feeling of Stress : To some extent Social Connections: Socially Isolated (02/03/2024) Social Connection and Isolation Panel [NHANES] Frequency of Communication with Friends and Family: Twice a week Frequency of Social Gatherings with Friends and Family: Twice a week Attends Nondenominational Services: Never Active Member of Clubs or [...] of the patient's normal pain. Assessment/Treatment Plan: Ava was seen today for back pain and [...] DAGO Cárdenas 04/02/24 1625 documented in this encounterFisher-[facility]08-20-2024 Instructions* Patient Instructions* Lorena Red RN - [...] the nearest emergency room. documented in this encounterFisher-[facility]08-05-2024 History of Present illness Narrative* Annmarie Marquez PA-C - 03/18/2024 2:29 PM EDT [...] based on the injury and paintreatment needs. Annmarie Marquez PA-C 03/18/24 1432 documented in this encounterFisher-[facility] Center08-01-2024 History of Present illness Narrative* Rehana Gibbs PA-C - 03/14/2024 1:00 PM EDT CC: [...] repeat imaging of the right hip. Rehana Gibbs PA-C [employer] Rehana Gibbs PA-C 03/14/24 1410 documented in this encounterFisher-[facility]08-01-2024 Instructions* Patient Instructions* Rehana Gibbs PA-C - 03/14/2024 1:00 PM EDT Patient [...] Caltrate 600+D3 [OTC]; Caltrate Gummy Bites [OTC]; Overlea Calcium +D [OTC] [DSC]; Liquid Calcium with D3 [OTC]; Liquid Calcium/Vitamin D [OTC]; Os-Evert Calcium + D3 [OTC]; Os-Evert Extra D3 [OTC]; Os-Evert [OTC]; Oysco 500+D [OTC]; Oyster Calcium + D [OTC] [DSC]; Oyster Shell Calcium + D [OTC]; Oyster Shell Calcium + D3 [OTC]; Oyster Shell Calcium 250+D [OTC]; Oyster Shell Renxstx157 + D [OTC]; Oyster Shell Calcium 500+D [...] or approved for treating a specific patient. [employer] and its affiliatesdisclaim any warranty or liability relating to this information or the use thereof. The use of thisinformation is governed by the Terms of Use, available at https://www.woltersKlypperuwer.com/en/know/nejtqjcm-abkchunyavrkg-bpzpg. Last Reviewed Date 2021-01-06 Copyright 2021 [employer]. and its affiliates and/or licensors. All rights reserved. documented in this encounterFisher-[facility] Center07-15-2024 History of Present illness Narrative* Annmarie Marquez PA-C - 02/26/2024 11:25 AM EDT Pharmacy called stating they only had 25 tablets available. Patient had a partial fill performed. OARRS report reviewed and acceptable. Prescription for remaining 7 tablets sent to pharmacy. Annmarie Marquez PA-C 02/26/24 1128 documented in this encounterFisher-[facility]itus [facility] Center07-12-2024 History of Present illness Narrative* Annmarie Marquez PA-C - 02/23/2024 12:55 PM EDT [...] based on the injury and paintreatment needs. Annmarie Marquez PA-C 02/23/24 1259 documented in this encounterFisher-[facility] Center07-11-2024 History of Present illness Narrative* Ang Figueroa [...] from lisinopril Chronic pain disorder Colon cancer ([facility]) COPD (chronic obstructive pulmonary disease) ([facility]) Depression Diabetes mellitus type 2, controlled ([facility]) Fibromyalgia, primary Fracture of right hip, closed, initial encounter ([facility]) 01/17/2024 GERD (gastroesophageal reflux disease) Hyperlipidemia Hypertension Insulin-treated type 2 diabetes mellitus ([facility]) Joint pain Kidney stones Liver disease Low back pain Neck pain Obesity Osteoarthritis Visual impairment Past Surgical History: Procedure Laterality Date BACK SURGERY COLON SURGERY resection, 2018, [facility] DAVINCI REPAIR HERNIA VENTRAL N/A 10/27/2021 Performed by Ridge Cedillo MD at [facility] DENTAL SURGERY pt had all teeth removed HERNIA REPAIR x's 2 INSERTION INTRAMEDULLARY NAIL FEMUR Right 01/30/2024 Performed by Ang Figueroa MD at [facility] INSERTION INTRAMEDULLARY NAIL FEMUR-TFNA HIP FX Right 01/18/2024 Performed by Ang Figueroa MD at [facility] ORTHOPEDIC SURGERY 2008 foot, infected foot REMOVAL HARDWARE INTRAMEDULLARY NAIL/KATERYNA FEMUR Right 01/30/2024 Performed by Ang Figueroa MD at [facility] Social History Tobacco Use Smoking status: [...] Follow-up 3 weeks with x-ray right femur Annmarie Marquez PA-C I, ANG FIGUEROA MD, personally performed the face to face evaluation on this patient. I discussed with the patient and confirmed the accuracy and completeness of the aforementioned history prepared bythe aurelia practice provider, and I personally performed the clinical examination of the patient. I discussed the treatment plan with the patient. Returned to follow up today after after revision hip fracture surgical intervention. He has but 3 weeks out from this. [place] removed Steri-Strips were placed. He is on [...] MD. Ang Figueroa MD documented in this encounterFisher-[facility]07-08-2024 History of Present illness Narrative* Annmarie Marquez PA-C - 02/19/2024 1:54 PM EDT He was provided a narcotic prescription and provided an education sheet regarding narcotic risks, benefits and addictive potential. An OARRS report was reviewed and was acceptable. In my clinical judgement, his requires >7 days of narcotic duration based on the injury and paintreatment needs. Annmarie Marquez PA-C 02/19/24 1355 documented in this encounterFisher-T[facility] Center07-01-2024 Miscellaneous Notes* Telephone Encounter - HUBERT Sylvester [...] be refilled on 02/16/2024. documented in this encounterFisher-Titus [facility] Center07-01-2024 Telephone encounter Note* Telephone Encounter - HUBERT [...] This medication can be refilled on 02/16/2024. [facility] [employer] [id number] History of Present illness Narrative* Ignacio Arreola PA-C - 02/03/2024 1:57 PM EDT [...] Initial Rehab Facility Preadmission Screening Sending facility: [facility] Room number: A729/01 Date of admission to hospital: 01/29/2024 PCP: Jd Du PA-C Primary insurance: Payor: MEDICARE / Plan: MEDICARE PART A & B / Product Type: *No Product type* / Policy #: [id number] - (Medicare) Secondary insurance: N/A Address: [address] [place] [phone] (home) : 1970 Age: 53 y.o. Race: White or [1] Emergency contact: Extended Emergency Contact Information Primary Emergency Contact: Yvonne Martinez Mobile Relation: Mother Preferred language: Citizen [place] Pilates Coordinator needed? No Secondary Emergency Contact: Chema Lira Mobile Relation: Relative Marital status: Single [1] Rehab Diagnosis/Primary condition that led to the patient's admission ([facility]): Ruth Smith is a 53 y.o. male whose primary indication for inpatient rehabilitation is: Orthopedic Disorders: 03.24 Status Post Unilateral Hip Fracture Etiologic Diagnosis: Right periprosthetic subtrochanteric fx Patient presented to [facility] on 01/17/2024 with Right hip pain, reports he tripped over a dog & landed on his R knee. Imaging revealed a right IT nondisplaced fx. 01/18/2024 s/p IM nailing with dr Figueroa 01/22/2024 transferred to [facility] 01/29/2024 Patient was doing well postoperatively but [...] & f/u with ortho recommending transfer to [facility] 01/30/2024 s/p IM nailing & removal of right femur hardware with Dr Figueroa 02/01/2024 concern of right thigh swelling- ortho evaluated & noted Right leg edematous, but allcompartments soft and compressible 02/02/2024 continues to have increased pain to the RLE- dopplers pending Comorbidities/Medical issues requiring further interdisciplinary management at [facility]: Right IT nondisplaced fx WBAT Right [...] Closed displaced intertrochanteric fracture of right femur ([facility]) Closed fracture of right hip, initial encounter ([facility]) Hip fx ([facility]) Difficulty in walking Type 2 diabetes mellitus with circulatory disorder, with long-term current use of insulin ([facility]) Primary hypertension Class 1 obesity due to excess calories with serious comorbidity and body mass index (BMI) of 31.0 to 31.9 in adult BPH (benign prostatic hyperplasia) Myah-prosthetic fracture around prosthetic hip Past Medical History: Diagnosis Date Asthma Back pain Chronic cough from lisinopril Chronic pain disorder Colon cancer ([facility]) COPD (chronic obstructive pulmonary disease) ([facility]) Depression Diabetes mellitus type 2, controlled ([facility]) Fibromyalgia, primary Fracture of right hip, closed, initial encounter ([facility]) 01/17/2024 GERD (gastroesophageal reflux disease) Hyperlipidemia Hypertension Insulin-treated type 2 diabetes mellitus ([facility]) Joint pain Kidney stones Liver disease Low back pain Neck pain Obesity Osteoarthritis Visual impairment Past Surgical History: Procedure Laterality Date BACK SURGERY COLON SURGERY resection, 2018, [facility] DAVINCI REPAIR HERNIA VENTRAL N/A 10/27/2021 Performed by Ridge Cedillo MD at [facility] DENTAL SURGERY pt had all teeth removed HERNIA REPAIR x's 2 INSERTION INTRAMEDULLARY NAIL FEMUR Right 01/30/2024 Performed by Ang Figueroa MD at [facility] INSERTION INTRAMEDULLARY NAIL FEMUR-TFNA HIP FX Right 01/18/2024 Performed by Ang Figueroa MD at [facility]TH[facility]IC SURG[facility] 2008 foot, infected foot REMOVAL HARDWARE INTRAMEDULLARY NAIL/KATERYNA FEMUR Right 01/30/2024 Performed by Ang Figueroa MD at [facility] Ongoing Medical Management Needs: Patient risk [...] mcg 1,000 mcg oral Daily Marsha Flores APRN-OPTICAL ENGINEER 1,000 mcg at 02/02/24 0839 cyclobenzaprine (FLEXERIL) [...] 1 mg 1 mg oral Daily Marsha Flores, JOHN-OPTICAL ENGINEER 1 mg at 02/02/24 0841 gabapentin (NEURONTIN) tablet 800 mg 800 mg oral TID Demond Frazier MD 800 mg at 02/02/24 1444 glucagon HCL injection 1 mg 1 mg intramuscular PRN Demond Frazier MD hydrALAZINE (APRESOLINE) injection 10 mg 10 mg intravenous Q6H PRN Demond Frazier MD HYDROmorphone (PF) (DILAUDID) injection 1 mg 1 mg intravenous Q3H PRN Jalen Zhou MD 1 mg at 02/01/24 2117 hyoscyamine [...] 3 mL 3 mL intravenous PRN Jalen Zhou MD 3 mL at 02/01/24 1209 sucralfate [...] Pain Type: Acute pain, Surgical pain (02/02/24 08) Pain Location: Hip, Leg (02/02/24836) Pain Orientation: [...] chair, active wound: yes Dialysis? No Language/Cognition: Citizen [place] [22] Hearing / Speech / Vision Hearing: [...] precautions: Precautions: Fall (02/02/24799) Cultural considerations: N/A Pilates Coordinator needed? No [2] BP 123/73 Pulse 88 [...] independent without devices. He had been at [facility] just prior to this adm and amb short distances on his own with rw per his report. (01/31/249[address]) Speech Therapy: No Speech/Language Impressions: Swallowing Impressions: Current Level of Function - Physical Therapy: Mobility/transfers: Supine to Sit: Mod assist (of 2) (02/01/24 100) Sit to Supine: Unable to assess (02/01/241002) [...] chair (01/31/24904) Home Equipment: Rolling walker, Cane, Panel Edge Painter (01/31/24904) Other : No AE/DME needs prior [...] and Orthopedic Surgeon Associated attestation - Erick Alvarez DO - 02/02/2024 3:48 PM EDT By signing this document, I have reviewed and concur with the findings and results of the preadmission screening. Erick Alvarez DO * Leatha Saldivar MD - 02/02/2024 10:18 AM EDT 02/02/2024 Patient Name: Ruth Smith : 1970 Code status: Problem List: Principal Problem: Closed fracture of right hip, initial encounter ([facility]) Active Problems: Myah-prosthetic fracture around prosthetic hip [...] Closed fracture of right hip, initial encounter ([facility]) Active Problems: Myah-prosthetic fracture around prosthetic hip [...] Initial Rehab Facility Preadmission Screening Sending facility: [facility] Room number: A729/01 Date of admission to hospital: 01/29/2024 PCP: Jd Du PA-C Primary insurance: Payor: MEDICARE / Plan: MEDICARE PART A & B / Product Type: *No Product type* / Policy #: [id number] - (Medicare) Secondary insurance: N/A Address: [address] [place] [address] (home) : 1970 Age: 53 y.o. Race: White or [1] Emergency contact: Extended Emergency Contact Information Primary Emergency Contact: Yvonne Martinez Mobile Relation: Mother Preferred language: Citizen [place] Pilates Coordinator needed? No Secondary Emergency Contact: Chema Lira Mobile Relation: Relative Marital status: Single [1] Rehab Diagnosis/Primary condition that led to the patient's admission ([facility]): Ruth Smith is a 53 y.o. male whose primary indication for inpatient rehabilitation is: Orthopedic Disorders: 03.24 Status Post Unilateral Hip Fracture Etiologic Diagnosis: Right periprosthetic subtrochanteric fx Patient presented to [facility] on 01/17/2024 with Right hip pain, reports he tripped over a dog & landed on his R knee. Imaging revealed a right IT nondisplaced fx. 01/18/2024 s/p IM nailing with dr Figueroa 01/22/2024 transferred to [facility] 01/29/2024 Patient was doing well postoperatively but [...] & f/u with ortho recommending transfer to [facility] 01/30/2024 s/p IM nailing & removal of right femur hardware with Dr Figueroa Comorbidities/Medical issues requiring further interdisciplinary management at [facility]: Right IT nondisplaced fx WBAT Right [...] Closed displaced intertrochanteric fracture of right femur ([facility]) Closed fracture of right hip, initial encounter ([facility]) Hip fx ([facility]) Difficulty in walking Type 2 diabetes mellitus with circulatory disorder, with long-term current use of insulin ([facility]) Primary hypertension Class 1 obesity due to excess calories with serious comorbidity and body mass index (BMI) of 31.0 to 31.9 in adult BPH (benign prostatic hyperplasia) Myah-prosthetic fracture around prosthetic hip Past Medical History: Diagnosis Date Asthma Back pain Chronic cough from lisinopril Chronic pain disorder Colon cancer ([facility]) COPD (chronic obstructive pulmonary disease) ([facility]) Depression Diabetes mellitus type 2, controlled ([facility]) Fibromyalgia, primary Fracture of right hip, closed, initial encounter ([facility]) 01/17/2024 GERD (gastroesophageal reflux disease) Hyperlipidemia Hypertension Insulin-treated type 2 diabetes mellitus ([facility]) Joint pain Kidney stones Liver disease Low back pain Neck pain Obesity Osteoarthritis Visual impairment Past Surgical History: Procedure Laterality Date BACK SURGERY COLON SURGERY resection, 2018, [facility] DAVINCI REPAIR HERNIA VENTRAL N/A 10/27/2021 Performed by Ridge Cedillo MD at [facility] DENTAL SURGERY pt had all teeth removed HERNIA REPAIR x's 2 INSERTION INTRAMEDULLARY NAIL FEMUR Right 01/30/2024 Performed by Ang Figueroa MD at [facility] INSERTION INTRAMEDULLARY NAIL FEMUR-TFNA HIP FX Right 01/18/2024 Performed by Ang Figueroa MD at [facility] ORTHOPEDIC SURGERY 2008 foot, infected foot REMOVAL HARDWARE INTRAMEDULLARY NAIL/KATERYNA FEMUR Right 01/30/2024 Performed by Ang Figueroa MD at [facility] Ongoing Medical Management Needs: Patient risk [...] Q8H Demond Frazier MD 1,000 mgat 02/01/24 041 calcium citrate (CALCITRATE) tablet 400 mg 400 [...] mcg 1,000 mcg oral Daily Marsha Flores APRN-OPTICAL ENGINEER 1,000 mcg at 02/01/24 0804 cyclobenzaprine (FLEXERIL) [...] mg 1 mg intravenous Q3H PRN Jalen Zhou MD 1 mg at 02/01/24 0949 hyoscyamine [...] tablet 50 mg 50 mg oral Daily Maluo Bergeron MD 50 mg at 02/01/24 0037 [...] 3 mL 3 mL intravenous PRN Jalen Zhou MD 3 mL at 01/31/24 1503 sucralfate (CARAFATE) tablet 1 g 1 g oral 4x Daily Demond Frazier MD 1 g at 02/01/24 0802 tamsulosin (FLOMAX) 24 hr capsule 0.4 mg 0.4 mg oral Nightly Demond Frazier MD 0.4 mg at 06/19/24 2126 traZODone (DESYREL) tablet 50 mg 50 [...] chair, active wound: yes Dialysis? No Language/Cognition: Citizen [place] [22] Hearing / Speech / Vision Hearing: [...] precautions: Precautions: Fall (01/31/241939) Cultural considerations: N/A Pilates Coordinator needed? No [2] BP 121/73 Pulse 75 [...] independent without devices. He had been at [facility] just prior to this adm and [...] chair (01/31/24904) Home Equipment: Rolling walker, Cane, Panel Edge Painter (01/31/24904) Other : No AE/DME needs prior [...] and Orthopedic Surgeon Associated attestation - Erick Alvarez DO - 02/01/2024 10:20 AM EDT By signing this document, I have reviewed and concur with the findings and results of the preadmission screening. Erick Alvarez DO * Jalen Zhou MD - 02/01/2024 6:16 AM EDT Orthopedic [...] bearing: As tolerated right lower extremity Jalen Zhou MD Orthopaedic Surgery Resident, PGY-4 Associated attestation [...] Closed fracture of right hip, initial encounter ([facility]) Active Problems: Myah-prosthetic fracture around prosthetic hip [...] 10. Enoxaparin for DVT prophylaxis * Jalen Zhou MD - 01/31/2024 6:21 AM EDT Orthopedic [...] bearing: As tolerated right lower extremity Jalen Zhou MD Orthopaedic Surgery Resident, PGY-4 Associated attestation - Ang Figueroa MD - 01/31/2024 12:36 PM EDT ATTESTATION: I, ANG FIGUEROA MD, had a iibi-my-xlmo encounter with this patient and completed sharma [...] Closed fracture of right hip, initial encounter ([facility]) Active Problems: Myah-prosthetic fracture around prosthetic hip [...] prophylaxis Monitor patient closely. documented in this encounterFisher-[facility]06-22-2024 Progress note* Discharge Planning Note - Sisi Morse RN - 02/03/2024 11:03 AM EDT DISCHARGE PLANNING NOTE Case discussed in daily transition rounds and chart reviewed by CN. Barriers to discharge include none. Discharge Plan remains: Patient to transport to [facility] at 2pm today. CRF sent. CN will continue to follow and is available should any further needs arise. - Sisi Morse RN 02/03/24 11:03 AM [facility]06-22-2024 Miscellaneous Notes* Discharge Planning Note - Sisi Morse RN - 02/03/2024 11:03 AM EDT DISCHARGE PLANNING NOTE Case discussed in daily transition rounds and chart reviewed by CN. Barriers to discharge include none. Discharge Plan remains: Patient to transport to [facility] at 2pm today. CRF sent. CN will continue to follow and is available should any further needs arise. - Sisi Morse RN 02/03/24 11:03 AM * PT/OT/FIELD IDENTIFICATION SPECIALIST - NALLELY Meneses - 02/03/2024 9:51 AM [...] belt, RW Weight Bearing Status: WBAT RLE Telemetry/Horse Race Starter: Yes Other: fall risk Pain Assessment Pain [...] Patient will perform bed mobility with Modified [place] Dates: Start: 01/31/24 Expected End: 02/28/24 Description: Goal Description: Disciplines: OT Outcomes Date/Time User Outcome 02/01/24 1328 Azul Mitchell, SERVIN/L Progressing Goal Note filed on 02/01/24 1328 by Azul Medrano SERVIN/Lanie Evaluation of progress towards goal: Problem: Functional Mobility Dates: Start: 01/31/24 Disciplines: OT Goal: Patient will perform functional mobility with Modified [place] Dates: Start: 01/31/24 Expected End: 02/28/24 Description: [...] Mitchell, SERVIN/L Progressing 02/01/24 1328 Azul Mitchell, SEVRIN/L Not Progressing 01/31/24 1609 Azul Mitchell, SERVIN/L [...] Goal: Patient will perform transfers with Modified [place] Dates: Start: 01/31/24 Expected End: 02/28/24 Description: [...] Closed fracture of right hip, initial encounter ([facility]) Active Problems: Myah-prosthetic fracture around prosthetic hip [...] Description: INTERVENTIONS: 1. Encourage patient or legal auto claim representative to report early pain and ask [...] per policy 9. Teach patient or legal auto claim representative interventions for comforting Outcome: Progressing Note: [...] Score of =/> 25 or indicated by [facility] Assessment Goal: Patient should be free from fall Description: Interventions: 1. [place] to environment 2. Hourly rounds addressing the [...] non-skid footwear 11. Teach patient and patient auto claim representative to maintain environment for safety and [...] (cane, walker) within reach 19. Request patient auto claim representative bring adaptive equipment/mobility aids from home or obtain and provide as needed 20. Consult pharmacy regarding effects of med's affecting mobility, cognition, and alternatives 21. Obtain physician order for PT if risk factors associated with mobility are present 22. Obtain physician order for OT as appropriate 23. Utilize diversional activities 24. Educate patient and patient auto claim representative how to maintain a safe environment during visitationtimes (notify nurse prior to leaving bedside) 25. Consider appropriateness of medical or non-medical collector 26. Set up voiding schedule as appropriate [...] hygiene technique 7. Identify and instruct patient/patient auto claim representative in use of appropriate isolation precautionsfor identified infection/symptoms 8. Provide and discuss with patient/patient auto claim representative on educational MDRO sheet 9. Encourage and monitor nutritional status daily and consult clinical appeals specialist if indicated 10. Implement neutropenic guidelines as [...] this time. Problem: Knowledge Deficit Goal: Patient/patient auto claim representative demonstrates understanding of disease process, treatment [...] transport via PTN confirmed in [facility] to [facility] 6.22.24 at 2:00pm. * PT/OT/FIELD IDENTIFICATION SPECIALIST - Ludy Ireland, OTR/L - 02/02/2024 2:02 PM EDT Occupational Therapy CANCEL - Deferred Pt currently off floor for RLE dopplers. Will continue POC as able. * PT/OT/FIELD IDENTIFICATION SPECIALIST - Nas Lima PTA - 02/02/2024 2:00 [...] Description: INTERVENTIONS: 1. Encourage patient or legal auto claim representative to report early pain and ask [...] per policy 9. Teach patient or legal auto claim representative interventions for comforting Outcome: Progressing Note: [...] at the bedside 7. Instruct patient/ patient auto claim representative about use of safety devices 8. Include patient/ patient auto claim representative in decisions related to safety Outcome: [...] hygiene technique 7. Identify and instruct patient/patient auto claim representative in use of appropriate isolation precautionsfor identified infection/symptoms 8. Provide and discuss with patient/patient auto claim representative on educational MDRO sheet 9. Encourage and monitor nutritional status daily and consult clinical appeals specialist if indicated 10. Implement neutropenic guidelines as needed 11. Review exposure to history of communicable disease and recent travel history on admission 12. Encourage annual influenza vaccine 13. Encourage pneumonia vaccine Outcome: Progressing Note: Evaluation of progress towards goal: Skin integrity remains in stable condition; remains w/o ss of infection, fever, pain, or increased discomfort. Problem: Knowledge Deficit Goal: Patient/patient auto claim representative demonstrates understanding of disease process, treatment [...] supplement as ordered 13. Collaborate with clinical clinical appeals specialist 14. Include patient/ patient's auto claim representative in decisions related to nutrition Outcome: [...] discharge planning process 5. Communicate referral to clinical trial educator as appropriate 6. Communicate referral to clinical appeals specialist as appropriate 7. Collaborate with case management/long term care social worker for discharge needs Outcome: Progressing Note: Evaluation of progress towards goal: Discharge planning in process; will continue to monitor for discharge needs. Problem: Moderate - High Risk Fall Score Description: Arredondo Fall Score of =/> 25 or indicated by [facility] Assessment Goal: Patient should be free from fall Description: Interventions: 1. [place] to environment 2. Hourly rounds addressing the [...] non-skid footwear 11. Teach patient and patient auto claim representative to maintain environment for safety and [...] (cane, walker) within reach 19. Request patient auto claim representative bring adaptive equipment/mobility aids from home or obtain and provide as needed 20. Consult pharmacy regarding effects of med's affecting mobility, cognition, and alternatives 21. Obtain physician order for PT if risk factors associated with mobility are present 22. Obtain physician order for OT as appropriate 23. Utilize diversional activities 24. Educate patient and patient auto claim representative how to maintain a safe environment during visitationtimes (notify nurse prior to leaving bedside) 25. Consider appropriateness of medical or non-medical collector 26. Set up voiding schedule as appropriate (every 2 hours) Outcome: Progressing Note: Evaluation of progress towards goal: Call light within reach. Remains free of fall or injury.Environment free of clutter. * Discharge Planning Note - JEWEL Harrington - 02/02/2024 12:06 PM EDT DISCHARGE PLANNING NOTE Patient discussed today in daily transition rounds. Current Discharge Plan; [facility]. Current Barriers: pain control. SW requested transport for 2pm tomorrow for DC. - JEWEL HARRINGTON 02/02/24 12:06 PM * PT/OT/FIELD IDENTIFICATION SPECIALIST - Nas Lima PTA - 02/02/2024 8:13 [...] belt, RW Weight Bearing Status: WBAT RLE Telemetry/Horse Race Starter: Yes Other: fall risk Pain Assessment Pain [...] Lima, SHERYL Progressing 02/01/24 1525 Nick Fernandez, SHERYL Progressing 02/01/24 1140 Nick Fernandez, CLASSIFIED ADVERTISING CLERK Progressing 01/31/24 1545 Nick Fernandez PTA Progressing Goal Note filed on 02/01/24 1525 by Nick Fernandez PTA Evaluation of progress towards goal: Problem: Bed Mobility Dates: Start: 01/31/24 Disciplines: PT Goal: Patient will perform bed mobility with Minimum Assist Dates: Start: 01/31/24 Expected End: 02/14/24 Description: Goal Description: Disciplines: PT Outcomes Date/Time User Outcome 02/01/24 1525 Nick Fernandez, CLASSIFIED ADVERTISING CLERK Progressing 02/01/24 1140 Nick Fernandez PTA Progressing Goal Note filed on 02/01/24 1525 by Nick Fernandez PTA Evaluation of progress towards goal: Problem: Gait Dates: Start: 01/31/24 Disciplines: PT Goal: Patient will perform gait with Contact Guard Dates: Start: 01/31/24 Expected End: 02/14/24 Description: With__rw__,__150__feet Goal Description: Disciplines: PT Outcomes Date/Time User Outcome 02/02/24 0937 Nas Lima, CLASSIFIED ADVERTISING CLERK Not Progressing 02/01/24 1525 Nick Fernandez PTA [...] Date/Time User Outcome 02/02/24 0937 Nas Lima, CLASSIFIED ADVERTISING CLERK Not Progressing 02/01/24 1525 Nick Fernandez, CLASSIFIED ADVERTISING CLERK Progressing 02/01/24 1140 Nick Fernandez PTA Not [...] Date/Time User Outcome 02/02/24 0937 Nas Lima, CLASSIFIED ADVERTISING CLERK Progressing 02/01/24 1525 Nick Fernandez PTA Progressing [...] Closed fracture of right hip, initial encounter ([facility]) Active Problems: Myah-prosthetic fracture around prosthetic hip Associated attestation - Carlos Brar PT - 02/02/2024 3:00 PM EDT I have reviewed and agree with this note and education documentation for this visit. * PT/OT/FIELD IDENTIFICATION SPECIALIST - WILLARD Banda/Lanie - 02/02/2024 8:13 AM [...] belt Weight Bearing Status: WBAT Rt LE Telemetry/Horse Race Starter: Yes Oxygen Used: room air Other: fall [...] Ireland OTR/L Not Progressing 02/01/24 1548 Azul Medrano SERVIN/L Progressing 02/01/24 1328 Azulvanessa Medrano, SERVIN/L Not Progressing 01/31/24 1609 Azul Mitchell, SERVIN/L Progressing Goal Note filed on 02/02/24 0953 by Ludy Ireland OTR/Lanie Evaluation of progress towards goal: Problem: Bed Mobility Dates: Start: 01/31/24 Disciplines: OT Goal: Patient will perform bed mobility with Modified [place] Dates: Start: 01/31/24 Expected End: 02/28/24 Description: Goal Description: Disciplines: OT Outcomes Date/Time User Outcome 02/01/24 1328 Azul Mitchell, SERVIN/L Progressing Goal Note filed on 02/01/24 1328 by CHARU NielsenA/Lanie Evaluation of progress towards goal: Problem: Functional Mobility Dates: Start: 01/31/24 Disciplines: OT Goal: Patient will perform functional mobility with Modified [place] Dates: Start: 01/31/24 Expected End: 02/28/24 Description: [...] Azul Mitchell, SERVIN/L Progressing 02/01/24 1328 Azul Mithcell, SERVIN/L Not Progressing 01/31/24 1609 Azul Mitchell, [...] Goal: Patient will perform transfers with Modified [place] Dates: Start: 01/31/24 Expected End: 02/28/24 Description: Goal Description: Disciplines: OT Outcomes Date/Time User Outcome 02/02/24 0953 WILLARD Banda/Lanie Progressing 02/01/24 1548 CHARU NielsenA/L Progressing 02/01/24 1328 Azul Mitchell, SERVIN/L Not Progressing 01/31/24 1609 Azul Mitchell, SERVIN/L Progressing Goal Note filed on 02/02/24 0953 by WILLARD Banda/Lanie Evaluation of progress towards goal: Occupational Therapy Care Plan (Resolved) There are no resolved problems. Principal Problem: Closed fracture of right hip, initial encounter ([facility]) Active Problems: Myah-prosthetic fracture around prosthetic hip * Plan of Care - Lacey Singer RN - 02/01/2024 10:15 PM EDT Problem: Pain Goal: Patient goal is pain score less than 4, able to rest, and participant in treatment plan as appropriate Description: INTERVENTIONS: 1. Encourage patient or legal auto claim representative to report early pain and ask [...] per policy 9. Teach patient or legal auto claim representative interventions for comforting Outcome: Progressing Note: [...] at the bedside 7. Instruct patient/ patient auto claim representative about use of safety devices 8. Include patient/ patient auto claim representative in decisions related to safety Outcome: Progressing Note: Evaluation of progress towards goal: Assessed patient's risk for falls and implemented fall prevention plan of care per policy. Provided and maintained a safe environment. Pt remains free from falls and injury during this stay. * PT/OT/FIELD IDENTIFICATION SPECIALIST - NALLELY Nielsen 02/01/2024 3:49 PM EDT [...] RW Weight Bearing Status: WBAT Rt LE Telemetry/Horse Race Starter: Yes Oxygen Used: room air Other: fall [...] Patient will perform bed mobility with Modified [place] Dates: Start: 01/31/24 Expected End: 02/28/24 Description: Goal Description: Disciplines: OT Outcomes Date/Time User Outcome 02/01/24 1328 Azulvanessa Medrano, SERVIN/L Progressing Goal Note filed on 02/01/24 1328 by Azul Medrano SERVIN/Lanie Evaluation of progress towards goal: Problem: Functional Mobility Dates: Start: 01/31/24 Disciplines: OT Goal: Patient will perform functional mobility with Modified [place] Dates: Start: 01/31/24 Expected End: 02/28/24 Description: [...] Goal: Patient will perform transfers with Modified [place] Dates: Start: 01/31/24 Expected End: 02/28/24 Description: Goal Description: Disciplines: OT Outcomes Date/Time User Outcome 02/01/24 1548 Azul Medrano, SERVIN/L Progressing 02/01/24 1328 Azul Mitchell, SERVNI/L Not Progressing 01/31/24 1609 Azul Mitchell, SERVIN/L Progressing Goal Note filed on 02/01/24 1548 by MALATHI Nielsen/Lanie Evaluation of progress towards goal: Occupational Therapy Care Plan (Resolved) There are no resolved problems. Principal Problem: Closed fracture of right hip, initial encounter ([facility]) Active Problems: Myah-prosthetic fracture around prosthetic hip Associated attestation - Ludy Ireland OTR/Lanie - 02/02/2024 7:41 AM EDT I have reviewed and agree with this note and education documentation for this visit. * PT/OT/FIELD IDENTIFICATION SPECIALIST - Nick Fernandez PTA - 02/01/2024 3:39 [...] 6 Clicks: Basic Mobility Raw Score: 11 [facility] G Code Modifier: CL Patient Response [...] RW Weight Bearing Status: WBAT Rt LE Telemetry/Horse Race Starter: Yes Oxygen Used: room air Other: fall [...] 1525 Nick Fernandez PTA Progressing 02/01/24 1140 Ncik Fernandez PTA Not Progressing 01/31/24 1545 Nick [...] Closed fracture of right hip, initial encounter ([facility]) Active Problems: Myah-prosthetic fracture around prosthetic hip Associated attestation - Lindsay Infante, PT - 02/01/2024 3:54 PM EDT I have reviewed and agree with this note and education documentation for this visit. * PT/OT/FIELD IDENTIFICATION SPECIALIST - NALLELY Nielsen - 02/01/2024 1:29 PM [...] None Scoring Daily Activity Raw Score: 17 [facility] G Code Modifier: CK OT Treatment/Interventions: [...] RW Weight Bearing Status: WBAT Rt LE Telemetry/Horse Race Starter: Yes Oxygen Used: room air Other: fall [...] Patient will perform bed mobility with Modified [place] Dates: Start: 01/31/24 Expected End: 02/28/24 Description: Goal Description: Disciplines: OT Outcomes Date/Time User Outcome 02/01/24 1328 CHARU NielsenA/Lanie Progressing Goal Note filed on 02/01/24 1328 by NALLELY Nielsen Evaluation of progress towards goal: Problem: Functional Mobility Dates: Start: 01/31/24 Disciplines: OT Goal: Patient will perform functional mobility with Modified [place] Dates: Start: 01/31/24 Expected End: 02/28/24 Description: Goal Description: Disciplines: OT Outcomes Date/Time User Outcome 02/01/24 1328 Azul Medrano SERVIN/Lanie Not Progressing 01/31/24 1609 CHARU NielsenA/Lanie Progressing [...] Goal: Patient will perform transfers with Modified [place] Dates: Start: 01/31/24 Expected End: 02/28/24 Description: Goal Description: Disciplines: OT Outcomes Date/Time User Outcome 02/01/24 1328 MALATHI Nielsen/Lanie Not Progressing 01/31/24 1609 NALLELY Nielsen Progressing Goal Note filed on 02/01/24 1328 by NALLELY Nielsen Evaluation of progress towards goal: Occupational Therapy Care Plan (Resolved) There are no resolved problems. Principal Problem: Closed fracture of right hip, initial encounter ([facility]) Active Problems: Myah-prosthetic fracture around prosthetic hip Associated attestation - Ludy Ireland OTR/L - 02/01/2024 2:58 PM EDT I have reviewed and agree with this note and education documentation for this visit. * PT/OT/FIELD IDENTIFICATION SPECIALIST - Nick Fernandez PTA - 02/01/2024 11:57 [...] Weight Bearing Status: (P) WBAT Rt LE Telemetry/Horse Race Starter: (P) Yes Oxygen Used: (P) room air [...] Outcome 02/01/24 1140 Nick Fernadnez PTA Progressing 01/31/24 1545 Nick Fernandez PTA [...] Closed fracture of right hip, initial encounter ([facility]) Active Problems: Myah-prosthetic fracture around prosthetic hip [...] Description: INTERVENTIONS: 1. Encourage patient or legal auto claim representative to report early pain and ask [...] per policy 9. Teach patient or legal auto claim representative interventions for comforting Outcome: Progressing Note: [...] at the bedside 7. Instruct patient/ patient auto claim representative about use of safety devices 8. Include patient/ patient auto claim representative in decisions related to safety Outcome: [...] Description: INTERVENTIONS: 1. Encourage patient or legal auto claim representative to report early pain and ask [...] per policy 9. Teach patient or legal auto claim representative interventions for comforting Outcome: Progressing Note: [...] at the bedside 7. Instruct patient/ patient auto claim representative about use of safety devices 8. Include patient/ patient auto claim representative in decisions related to safety Outcome: [...] hygiene technique 7. Identify and instruct patient/patient auto claim representative in use of appropriate isolation precautionsfor identified infection/symptoms 8. Provide and discuss with patient/patient auto claim representative on educational MDRO sheet 9. Encourage and monitor nutritional status daily and consult clinical appeals specialist if indicated 10. Implement neutropenic guidelines as needed 11. Review exposure to history of communicable disease and recent travel history on admission 12. Encourage annual influenza vaccine 13. Encourage pneumonia vaccine Outcome: Progressing Note: Evaluation of progress towards goal: Pt afebrile at this time, continue to monitor for signs infection Problem: Knowledge Deficit Goal: Patient/patient auto claim representative demonstrates understanding of disease process, treatment plan,medications, and discharge instructions Description: INTERVENTIONS 1. Complete learning assessment and assess knowledge base 2. Provide teaching at level of understanding 3. Provide teaching via preferred learning method(s) Outcome: Progressing Note: Evaluation of progress towards goal: POC discussed with patient. Questions answered PRN. * PT/OT/FIELD IDENTIFICATION SPECIALIST - NALLELY Nielsen - 01/31/2024 4:10 PM [...] RW Weight Bearing Status: WBAT Rt LE Telemetry/Horse Race Starter: Yes Oxygen Used: room air Other: fall [...] Patient will perform bed mobility with Modified [place] Dates: Start: 01/31/24 Expected End: 02/28/24 Description: Goal Description: Disciplines: OT Problem: Functional Mobility Dates: Start: 01/31/24 Disciplines: OT Goal: Patient will perform functional mobility with Modified [place] Dates: Start: 01/31/24 Expected End: 02/28/24 Description: [...] Goal: Patient will perform transfers with Modified [place] Dates: Start: 01/31/24 Expected End: 02/28/24 Description: Goal Description: Disciplines: OT Outcomes Date/Time User Outcome 01/31/24 1609 NALLELY Nielsen Progressing Goal Note filed on 01/31/24 1609 by NALLELY Nielsen Evaluation of progress towards goal: Occupational Therapy Care Plan (Resolved) There are no resolved problems. Principal Problem: Closed fracture of right hip, initial encounter ([facility]) Active Problems: Myah-prosthetic fracture around prosthetic hip Associated attestation - Ludy Ireland OTR/L - 02/01/2024 7:28 AM EDT I have reviewed and agree with this note and education documentation for this visit. * PT/OT/FIELD IDENTIFICATION SPECIALIST - Nick Fernandez PTA - 01/31/2024 3:56 [...] 6 Clicks: Basic Mobility Raw Score: 13 [facility] G Code Modifier: CK Patient Response to Treatment: Slow progress, decreased activity tolerance Assessment Patient Assessment Patient Response to Treatment: Slow progress, decreased activity tolerance Visit RN Communication: Yes Medical Record Reviewed: Yes PT Type of Visit: Treatment Precautions Activity: Up to chair TID and ambulate BID Equipment: gait belt, RW Weight Bearing Status: WBAT Rt LE Telemetry/Horse Race Starter: Yes Oxygen Used: room air Other: fall [...] Closed fracture of right hip, initial encounter ([facility]) Active Problems: Myah-prosthetic fracture around prosthetic hip Associated attestation - Lindsay Infante, PT - 01/31/2024 4:14 PM EDT I have reviewed and agree with this note and education documentation for this visit. * Discharge Planning Note - Alexandra Eric - 01/31/2024 3:48 PM EDT DISCHARGE PLANNING NOTE Referral sent to [facility], a division of [facility] P# [phone] [calling report];/[facility] (P# [calling report]; F# ) * Discharge Planning Note - JEWEL Crenshaw - 01/31/2024 3:13 PM EDT Images from the original note were not included. DISCHARGE PLANNING NOTE SW met with patient introduce self & role. [facility]. Pt underwent IM nail on 01/18/24 and pt discharged to IP rehab on 01/22/24. Pt was transferred back to [facility] on 01/28 after fall at rehab facility. [...] and pt would like to return to [facility] rehab. Referral was sent, await confirmation they can accept pt back. Services Requested: Services Requested Acute Rehab Name: [facility] . Patient choice offered: Other (comment) (pt current with provider) List Provided: Other (comment) Initial DC Assessment Completed: Yes Patient Goals: Goals: Goals <enter goal here> (pt-stated) Evaluation of progress towards goal: pt plans to [place] [facility] [place] improve mobility and get home (pt-stated) Evaluation of progress towards goal: Participating in therapy - JEWEL Crenshaw 01/31/24 3:18 PM * PT/OT/FIELD IDENTIFICATION SPECIALIST - Lindsay Infante, PT - 01/31/2024 1:02 [...] from lisinopril Chronic pain disorder Colon cancer ([facility]) COPD (chronic obstructive pulmonary disease) ([facility]) Depression Diabetes mellitus type 2, controlled ([facility]) Fibromyalgia, primary Fracture of right hip, closed, initial encounter ([facility]) 01/17/2024 GERD (gastroesophageal reflux disease) Hyperlipidemia Hypertension Insulin-treated type 2 diabetes mellitus ([facility]) Joint pain Kidney stones Liver disease Low back pain Neck pain Obesity Osteoarthritis Visual impairment Past Surgical History: Procedure Laterality Date BACK SURGERY COLON SURGERY resection, 2018, [facility] DAVINCI REPAIR HERNIA VENTRAL N/A 10/27/2021 Performed by Ridge Cedillo MD at [facility] DENTAL SURGERY pt had all teeth removed HERNIA REPAIR x's 2 INSERTION INTRAMEDULLARY NAIL FEMUR Right 01/30/2024 Performed by Ang Figueroa MD at [facility] INSERTION INTRAMEDULLARY NAIL FEMUR-TFNA HIP FX Right 01/18/2024 Performed by Ang Figueroa MD at [facility] ORTHOPEDIC SURGERY 2008 foot, infected foot REMOVAL HARDWARE INTRAMEDULLARY NAIL/KATERYNA FEMUR Right 01/30/2024 Performed by Ang Figueroa MD at [facility] 6 Clicks: Basic Mobility Turning from [...] RW Weight Bearing Status: WBAT Rt LE Telemetry/Horse Race Starter: Yes Other: fall risk Pain Assessment Pain [...] Shower chair Home Equipment: Rolling walker, Cane, Panel Edge Painter Prior Function Lives With: Alone Receives Help From: Neighbor Level of Mobility: Independent with ADLs and functional transfers or gait Homemaking Assistance: Independent (Except for driving) Other: Prior to injury pt completely independent without devices. He had been at [facility] just prior to this adm and [...] Closed fracture of right hip, initial encounter ([facility]) Active Problems: Myah-prosthetic fracture around prosthetic hip * PT/OT/FIELD IDENTIFICATION SPECIALIST - Nohemy Han OTR/Lanie - 01/31/2024 11:28 [...] from lisinopril Chronic pain disorder Colon cancer ([facility]) COPD (chronic obstructive pulmonary disease) ([facility]) Depression Diabetes mellitus type 2, controlled ([facility]) Fibromyalgia, primary Fracture of right hip, closed, initial encounter ([facility]) 01/17/2024 GERD (gastroesophageal reflux disease) Hyperlipidemia Hypertension Insulin-treated type 2 diabetes mellitus ([facility]) Joint pain Kidney stones Liver disease Low back pain Neck pain Obesity Osteoarthritis Visual impairment Past Surgical History: Procedure Laterality Date BACK SURGERY COLON SURGERY resection, 2018, [facility] DAVINCI REPAIR HERNIA VENTRAL N/A 10/27/2021 Performed by Ridge Cedillo MD at [facility] DENTAL SURGERY pt had all teeth removed HERNIA REPAIR x's 2 INSERTION INTRAMEDULLARY NAIL FEMUR Right 01/30/2024 Performed by Ang Figueroa MD at [facility] INSERTION INTRAMEDULLARY NAIL FEMUR-TFNA HIP FX Right 01/18/2024 Performed by Ang Figueroa MD at [facility] ORTHOPEDIC SURGERY 2008 foot, infected foot REMOVAL HARDWARE INTRAMEDULLARY NAIL/KATERYNA FEMUR Right 01/30/2024 Performed by Ang Figueroa MD at [facility] Chief Complaint Patient presents with Fall [...] RW Weight Bearing Status: WBAT Rt LE Telemetry/Horse Race Starter: Yes Oxygen Used: room air Other: fall [...] Shower chair Home Equipment: Rolling walker, Cane, Panel Edge Painter Other : No AE/DME needs prior to [...] Patient will perform bed mobility with Modified [place] Dates: Start: 01/31/24 Expected End: 02/28/24 Description: Goal Description: Disciplines: OT Problem: Functional Mobility Dates: Start: 01/31/24 Disciplines: OT Goal: Patient will perform functional mobility with Modified [place] Dates: Start: 01/31/24 Expected End: 02/28/24 Description: [...] Goal: Patient will perform transfers with Modified [place] Dates: Start: 01/31/24 Expected End: 02/28/24 Description: Goal Description: Disciplines: OT Occupational Therapy Care Plan (Resolved) There are no resolved problems. Principal Problem: Closed fracture of right hip, initial encounter ([facility]) Active Problems: Myah-prosthetic fracture around prosthetic hip * Plan of Care - Mia Goddard RN - 01/31/2024 9:06 AM EDT Problem: Pain Goal: Patient goal is pain score less than 4, able to rest, and participant in treatment plan as appropriate Description: INTERVENTIONS: 1. Encourage patient or legal auto claim representative to report early pain and ask [...] per policy 9. Teach patient or legal auto claim representative interventions for comforting Outcome: Progressing Note: [...] Description: INTERVENTIONS: 1. Encourage patient or legal auto claim representative to report early pain and ask [...] per policy 9. Teach patient or legal auto claim representative interventions for comforting Outcome: Progressing Note: [...] at the bedside 7. Instruct patient/ patient auto claim representative about use of safety devices 8. Include patient/ patient auto claim representative in decisions related to safety Outcome: [...] hygiene technique 7. Identify and instruct patient/patient auto claim representative in use of appropriate isolation precautionsfor identified infection/symptoms 8. Provide and discuss with patient/patient auto claim representative on educational MDRO sheet 9. Encourage and monitor nutritional status daily and consult clinical appeals specialist if indicated 10. Implement neutropenic guidelines as needed 11. Review exposure to history of communicable disease and recent travel history on admission 12. Encourage annual influenza vaccine 13. Encourage pneumonia vaccine Outcome: Progressing Note: Evaluation of progress towards goal: Pt afebrile at this time, continue to monitor for signs infection Problem: Knowledge Deficit Goal: Patient/patient auto claim representative demonstrates understanding of disease process, treatment [...] Description: INTERVENTIONS: 1. Encourage patient or legal auto claim representative to report early pain and ask [...] per policy 9. Teach patient or legal auto claim representative interventions for comforting Outcome: Progressing Note: Evaluation of progress towards goal: Encourage patient or legal auto claim representative to report early pain and ask [...] at the bedside 7. Instruct patient/ patient auto claim representative about use of safety devices 8. Include patient/ patient auto claim representative in decisions related to safety Outcome: [...] hygiene technique 7. Identify and instruct patient/patient auto claim representative in use of appropriate isolation precautionsfor identified infection/symptoms 8. Provide and discuss with patient/patient auto claim representative on educational MDRO sheet 9. Encourage and monitor nutritional status daily and consult clinical appeals specialist if indicated 10. Implement neutropenic guidelines as [...] and monitor nutritional status daily and consult clinical appeals specialist if indicated. Encourage annual influenza vaccine and pneumonia vaccine. * Op Note - Ang Figueroa MD - 01/30/2024 9:23 AM EDT DATE OF OPERATION: January 30, 2024 PREOPERATIVE DIAGNOSIS: 1. right intertrochanteric hip fracture with new periprosthetic subtrochanteric fracture after a second fall at rehab POSTOPERATIVE DIAGNOSIS: 1. Same OPERATION: 1. IM nail right intertrochanteric/subtrochanteric hip fracture.- 52001 2. Removal hardware Right femur - 33776 SURGEON: Ang Figueroa MD PHOTOGRAPHER: Jalen Zhou MD ANESTHESIA: General. MEDICATIONS: vanc IV preop. [...] , damage to normal structure, PE, DVT, [place], stroke, nonunion, malunion, chronic pain, arthrosis, arthritis, [...] was then placed by using a perfect hopi technique with fluoroscopy. The drill bit was [...] time of surgery. ANG FIGUEROA MD * PT/OT/FIELD IDENTIFICATION SPECIALIST - Nohemy Han OTR/L - 01/30/2024 8:43 AM EDT Occupational Therapy CANCEL - Deferred OT attempted. Pt off floor at surgery. Will check back as able. * PT/OT/FIELD IDENTIFICATION SPECIALIST - Lindsay Infante PT - 01/30/2024 8:41 [...] Description: INTERVENTIONS: 1. Encourage patient or legal auto claim representative to report early pain and ask [...] per policy 9. Teach patient or legal auto claim representative interventions for comforting Outcome: Progressing Note: [...] at the bedside 7. Instruct patient/ patient auto claim representative about use of safety devices 8. Include patient/ patient auto claim representative in decisions related to safety Outcome: [...] hygiene technique 7. Identify and instruct patient/patient auto claim representative in use of appropriate isolation precautionsfor identified infection/symptoms 8. Provide and discuss with patient/patient auto claim representative on educational MDRO sheet 9. Encourage and monitor nutritional status daily and consult clinical appeals specialist if indicated 10. Implement neutropenic guidelines as needed 11. Review exposure to history of communicable disease and recent travel history on admission 12. Encourage annual influenza vaccine 13. Encourage pneumonia vaccine Outcome: Progressing Note: Evaluation of progress towards goal: Pt afebrile at this time, continue to monitor for signs infection Problem: Knowledge Deficit Goal: Patient/patient auto claim representative demonstrates understanding of disease process, treatment plan,medications, and discharge instructions Description: INTERVENTIONS 1. Complete learning assessment and assess knowledge base 2. Provide teaching at level of understanding 3. Provide teaching via preferred learning method(s) Outcome: Progressing Note: Evaluation of progress towards goal: POC discussed with patient. Questions answered PRN. documented in this [facility] Progress [facility]* PT/OT/FIELD IDENTIFICATION SPECIALIST - MALATHI Meneses/Lanie - 02/03/2024 9:51 AM [...] belt, RW Weight Bearing Status: WBAT RLE Telemetry/Horse Race Starter: Yes Other: fall risk Pain Assessment Pain [...] Patient will perform bed mobility with Modified [place] Dates: Start: 01/31/24 Expected End: 02/28/24 Description: Goal Description: Disciplines: OT Outcomes Date/Time User Outcome 02/01/24 1328 Azul Mitchell, SERVIN/L Progressing Goal Note filed on 02/01/24 1328 by Azul Medrano, SERVIN/L Evaluation of progress towards goal: Problem: Functional Mobility Dates: Start: 01/31/24 Disciplines: OT Goal: Patient will perform functional mobility with Modified [place] Dates: Start: 01/31/24 Expected End: 02/28/24 Description: [...] Katlin Goins, SERVIN/L Progressing 02/02/24 0953 Ludy Ireland, OTR/L Not Progressing 02/01/24 1548 Azul Mitchell, SERVIN/L Progressing 02/01/24 1328 Azul Mitchell, SERVIN/L Not Progressing 01/31/24 1609 Azul Mitcehll, SERVIN/L Progressing Goal Note filed on 02/02/24 [...] Goal: Patient will perform transfers with Modified [place] Dates: Start: 01/31/24 Expected End: 02/28/24 Description: [...] Closed fracture of right hip, initial encounter ([facility]) Active Problems: Myah-prosthetic fracture around prosthetic hip Associated attestation - Ludy Dey OTR/Lanie - 02/03/2024 11:43 AM EDT I have reviewed and agree with this note and education documentation for this visit. [facility] Plan of care note* Plan of Care - Lian Silva RN - 02/03/2024 8:45 AM EDT Problem: Pain Goal: Patient goal is pain score less than 4, able to rest, and participant in treatment plan as appropriate Description: INTERVENTIONS: 1. Encourage patient or legal auto claim representative to report early pain and ask [...] per policy 9. Teach patient or legal auto claim representative interventions for comforting Outcome: Progressing Note: [...] be free from fall Description: Interventions: 1. [place] to environment 2. Hourly rounds addressing the [...] non-skid footwear 11. Teach patient and patient auto claim representative to maintain environment for safety and [...] (cane, walker) within reach 19. Request patient auto claim representative bring adaptive equipment/mobility aids from home or obtain and provide as needed 20. Consult pharmacy regarding effects of med's affecting mobility, cognition, and alternatives 21. Obtain physician order for PT if risk factors associated with mobility are present 22. Obtain physician order for OT as appropriate 23. Utilize diversional activities 24. Educate patient and patient auto claim representative how to maintain a safe environment during visitationtimes (notify nurse prior to leaving bedside) 25. Consider appropriateness of medical or non-medical collector 26. Set up voiding schedule as appropriate (every 2 hours) Outcome: Progressing Note: Evaluation of progress towards goal: Call light within reach. Remains free of fall or injury.Environment free of clutter. [facility] course Narrative* Leatha Saldivar MD - [...] Closed fracture of right hip, initial encounter ([facility]) Active Problems: Myah-prosthetic fracture around prosthetic hip CONSULTANTS: Consulting Providers Provider Service Specialty [facility] -- Hematology MD Rubén Puri Physical Medicine and Rehabilitation Physical Medicine and Rehabilitation PCP: Patient Care Team: Jd Du PA-C as PCP - General (Physician Loan Processor) PROCEDURES PERFORMED: right intertrochanteric/subtrochanteric hip fracture and [...] alignment. No evidence of immediate hardware complication. Workstation:[id number] by Marc Paredes MD on 01/30/2024 1:43 [...] 1500 mL Follow up: Jd Du PA-C [address] [address] Please arrange follow-up with primary care 1 [...] pressure medications if systolic blood pressure greater [id number] or less than 110 or heart rate [...] at 8:15 a.m. regarding recent surgery. Telephone number:[phone] 9. No driving and no operating heavy machinery For most accurate medication list, please review the discharge medication summary. 34 minutes were spent on discharging this patient. Electronically signed by: Leatha Saldivar MD documented in this encounterSelect [facility] [id number] Plan of care note * Plan of [...] hygiene technique 7. Identify and instruct patient/patient auto claim representative in use of appropriate isolation precautionsfor identified infection/symptoms 8. Provide and discuss with patient/patient auto claim representative on educational MDRO sheet 9. Encourage and monitor nutritional status daily and consult clinical appeals specialist if indicated 10. Implement neutropenic guidelines as [...] this time. Problem: Knowledge Deficit Goal: Patient/patient auto claim representative demonstrates understanding of disease process, treatment plan,medications, and discharge instructions Description: INTERVENTIONS 1. Complete learning assessment and assess knowledge base 2. Provide teaching at level of understanding 3. Provide teaching via preferred learning method(s) Outcome: Progressing Note: Evaluation of progress towards goal: Patient agrees with treatment plan at this time. [facility] note* Discharge Planning Note - Araceli Motta - 02/02/2024 3:32 PM EDT DISCHARGE PLANNING NOTE [facility] transport via PTN confirmed in [facility] to [facility] 6.22.24 at 2:00pm. [facility] note* PT/OT/FIELD IDENTIFICATION SPECIALIST - Ludy Ireland OTR/Lanie - 02/02/2024 2:02 PM EDT Occupational Therapy CANCEL - Deferred Pt currently off floor for RLE dopplers. Will continue POC as able. [facility] note* PT/OT/FIELD IDENTIFICATION SPECIALIST - Nas Lima PTA - 02/02/2024 2:00 PM EDT Physical Therapy (P) CANCEL - Deferred (pt. off floor for dopplers-Cont per POC when available) Associated attestation - Carlos Brar, PT - 02/02/2024 3:00 PM EDT I have reviewed and agree with this note and education documentation for this visit. [facility] Nurse Note* Gurjit Drummond RN - 02/02/2024 1:50 PM EDT Pt here for Vascular. No needs voiced at present time. [facility] Nurse Note* Gurjit Drummond RN - 02/02/2024 [...] Thank you, Alistair Richards RN Rapid Response: [facility] documented in this encounterFisher-[facility]06-21-2024 Plan of care note * Plan of Care - Lian Silva RN - 02/02/2024 1:10 PM EDT Problem: Pain Goal: Patient goal is pain score less than 4, able to rest, and participant in treatment plan as appropriate Description: INTERVENTIONS: 1. Encourage patient or legal auto claim representative to report early pain and ask [...] per policy 9. Teach patient or legal auto claim representative interventions for comforting Outcome: Progressing Note: [...] at the bedside 7. Instruct patient/ patient auto claim representative about use of safety devices 8. Include patient/ patient auto claim representative in decisions related to safety Outcome: [...] hygiene technique 7. Identify and instruct patient/patient auto claim representative in use of appropriate isolation precautionsfor identified infection/symptoms 8. Provide and discuss with patient/patient auto claim representative on educational MDRO sheet 9. Encourage and monitor nutritional status daily and consult clinical appeals specialist if indicated 10. Implement neutropenic guidelines as needed 11. Review exposure to history of communicable disease and recent travel history on admission 12. Encourage annual influenza vaccine 13. Encourage pneumonia vaccine Outcome: Progressing Note: Evaluation of progress towards goal: Skin integrity remains in stable condition; remains w/o ss of infection, fever, pain, or increased discomfort. Problem: Knowledge Deficit Goal: Patient/patient auto claim representative demonstrates understanding of disease process, treatment [...] supplement as ordered 13. Collaborate with clinical clinical appeals specialist 14. Include patient/ patient's auto claim representative in decisions related to nutrition Outcome: [...] discharge planning process 5. Communicate referral to clinical trial educator as appropriate 6. Communicate referral to clinical appeals specialist as appropriate 7. Collaborate with case management/long term care social worker for discharge needs Outcome: Progressing Note: Evaluation of progress towards goal: Discharge planning in process; will continue to monitor for discharge needs. Problem: Moderate - High Risk Fall Score Description: Arredondo Fall Score of =/> 25 or indicated by [facility] Assessment Goal: Patient should be free from fall Description: Interventions: 1. [place] to environment 2. Hourly rounds addressing the [...] non-skid footwear 11. Teach patient and patient auto claim representative to maintain environment for safety and [...] (cane, walker) within reach 19. Request patient auto claim representative bring adaptive equipment/mobility aids from home or obtain and provide as needed 20. Consult pharmacy regarding effects of med's affecting mobility, cognition, and alternatives 21. Obtain physician order for PT if risk factors associated with mobility are present 22. Obtain physician order for OT as appropriate 23. Utilize diversional activities 24. Educate patient and patient auto claim representative how to maintain a safe environment during visitationtimes (notify nurse prior to leaving bedside) 25. Consider appropriateness of medical or non-medical collector 26. Set up voiding schedule as appropriate (every 2 hours) Outcome: Progressing Note: Evaluation of progress towards goal: Call light within reach. Remains free of fall or injury.Environment free of clutter. [facility] [id number] Progress note* Discharge Planning Note - JEWEL Harrington - 02/02/2024 12:06 PM EDT DISCHARGE PLANNING NOTE Patient discussed today in daily transition rounds. Current Discharge Plan; DOMINGO Mccarthy. Current Barriers: pain control. SW requested transport for 2pm tomorrow for DC. - JEWEL HARRINGTON 02/02/24 12:06 PM [facility] Progress note* PT/OT/FIELD IDENTIFICATION SPECIALIST - Nas Lima PTA - 02/02/2024 8:13 [...] belt, RW Weight Bearing Status: WBAT RLE Telemetry/Horse Race Starter: Yes Other: fall risk Pain Assessment Pain [...] Date/Time User Outcome 02/02/24 0937 Nas Lima, CLASSIFIED ADVERTISING CLERK Not Progressing 02/01/24 1525 Nick Fernandez PTA Progressing 02/01/24 1140 Nick Fernandez PTA Not Progressing 01/31/24 1545 Nick Fernandez PTA Progressing Goal Note filed on 02/01/24 152 by Nick Fernandez PTA Evaluation of progress towards goal: Problem: Strength Dates: Start: 01/31/24 Disciplines: PT Goal: Improve strength Dates: Start: 01/31/24 Expected End: 02/14/24 Description: Of extremity/ location:Complete 20 reps bilat LE ex's To facilitate: Disciplines: PT Outcomes Date/Time User Outcome 02/02/24 0937 Nas Lima, CLASSIFIED ADVERTISING CLERK Progressing 02/01/24 1525 Nick Fernandez PTA Progressing [...] Date/Time User Outcome 02/02/24 0937 Nas Lima, CLASSIFIED ADVERTISING CLERK Progressing 02/01/24 1525 Nick Fernandez PTA Progressing 02/01/24 1140 Nick Fernandez PTA Not Progressing 01/31/24 1545 Nick Fernandez PTA Progressing Goal Note filed on 02/01/24 1525 by Nick Fernandez PTA Evaluation of progress towards goal: Physical Therapy Care Plan (Resolved) There are no resolved problems. Principal Problem: Closed fracture of right hip, initial encounter ([facility]) Active Problems: Myah-prosthetic fracture around prosthetic hip Associated attestation - Carlos Brar, PT - 02/02/2024 3:00 PM EDT I have reviewed and agree with this note and education documentation for this visit. [facility] CenterCom[facility] [id number] Progress note* PT/OT/FIELD IDENTIFICATION SPECIALIST - Ludy Ireland OTR/Lanie - 02/02/2024 8:13 [...] belt Weight Bearing Status: WBAT Rt LE Telemetry/Horse Race Starter: Yes Oxygen Used: room air Other: fall [...] Disciplines: OT Outcomes Date/Time User Outcome 02/02/24 1714 Ludy Ireland OTR/L Not Progressing 02/01/24 1548 Azul Mitchell, SERVIN/L Progressing 02/01/24 1328 Azul Mitchell, SERVIN/L Not Progressing 01/31/24 1609 Azul Mitchell, SERVIN/L Progressing Goal Note filed on 02/02/24952 by Ludy Vidalia, OTR/L Evaluation of progress towards goal: Problem: Bed Mobility Dates: Start: 01/31/24 Disciplines: OT Goal: Patient will perform bed mobility with Modified [place] Dates: Start: 01/31/24 Expected End: 02/28/24 Description: Goal Description: Disciplines: OT Outcomes Date/Time User Outcome 02/01/24 1328 Azul Mitchell, SERVIN/L Progressing Goal Note filed on 02/01/24 1328 by Azul Medrano SERVIN/L Evaluation of progress towards goal: Problem: Functional Mobility Dates: Start: 01/31/24 Disciplines: OT Goal: Patient will perform functional mobility with Modified [place] Dates: Start: 01/31/24 Expected End: 02/28/24 Description: [...] Goal: Patient will perform transfers with Modified [place] Dates: Start: 01/31/24 Expected End: 02/28/24 Description: [...] Closed fracture of right hip, initial encounter ([facility]) Active Problems: Myah-prosthetic fracture around prosthetic hip [facility]06-20-2024 Plan of care note* Plan of Care - Lacey Singer RN - 02/01/2024 10:15 PM EDT Problem: Pain Goal: Patient goal is pain score less than 4, able to rest, and participant in treatment plan as appropriate Description: INTERVENTIONS: 1. Encourage patient or legal auto claim representative to report early pain and ask [...] per policy 9. Teach patient or legal auto claim representative interventions for comforting Outcome: Progressing Note: [...] at the bedside 7. Instruct patient/ patient auto claim representative about use of safety devices 8. Include patient/ patient auto claim representative in decisions related to safety Outcome: Progressing Note: Evaluation of progress towards goal: Assessed patient's risk for falls and implemented fall prevention plan of care per policy. Provided and maintained a safe environment. Pt remains free from falls and injury during this stay. [facility] [id number] Nurse Note* Alistair Richards RN - 02/01/2024 [...] Thank you, Alistair Richards RN Rapid Response: [facility] Progress note* PT/OT/FIELD IDENTIFICATION SPECIALIST - Azul MedranoNALLELY - 02/01/2024 3:49 PM EDT Occupational Therapy [...] RW Weight Bearing Status: WBAT Rt LE Telemetry/Horse Race Starter: Yes Oxygen Used: room air Other: fall [...] Patient will perform bed mobility with Modified [place] Dates: Start: 01/31/24 Expected End: 02/28/24 Description: Goal Description: Disciplines: OT Outcomes Date/Time User Outcome 02/01/24 1328 Azul Medrano SERVIN/L Progressing Goal Note filed on 02/01/24 1328 by MALATHI Nielsen/Lanie Evaluation of progress towards goal: Problem: Functional Mobility Dates: Start: 01/31/24 Disciplines: OT Goal: Patient will perform functional mobility with Modified Elmore Dates: Start: 01/31/24 Expected End: 02/28/24 Description: Goal Description: Disciplines: OT Outcomes Date/Time User Outcome 02/01/24 1548 Azulgin Medrano, SERVIN/L Progressing 02/01/24 1328 Azul Medrano [...] Azul Mitchell, SERVIN/L Progressing 02/01/24 1328 Azul Medrano SERVIN/L [...] Outcome 02/01/24 1548 Azulgin Medrano, SERVIN/L Progressing 01/31/24 1609 Azul Mitchell, SERVIN/L Not Progressing Goal Note filed on 02/01/24 1548 by MALATHI Nielsen/Lanie Evaluation of progress towards goal: Problem: Transfers Dates: Start: 01/31/24 Disciplines: OT Goal: Patient will perform transfers with Modified Elmore Dates: Start: 01/31/24 Expected End: 02/28/24 Description: [...] Closed fracture of right hip, initial encounter ([facility]) Active Problems: Myah-prosthetic fracture around prosthetic hip Associated attestation - Ludy Ireland OTR/L - 02/02/2024 7:41 AM EDT I have reviewed and agree with this note and education documentation for this visit. [employer]06-20-2024 Progress note* PT/OT/FIELD IDENTIFICATION SPECIALIST - Nick Fernandez, CLASSIFIED ADVERTISING CLERK - 02/01/2024 3:39 PM EDT Physical Therapy [...] RW Weight Bearing Status: WBAT Rt LE Telemetry/Horse Race Starter: Yes Oxygen Used: room air Other: fall [...] Closed fracture of right hip, initial encounter ([facility]) Active Problems: Myah-prosthetic fracture around prosthetic hip Associated attestation - Lindsay Infante, PT - 02/01/2024 3:54 PM EDT I have reviewed and agree with this note and education documentation for this visit. [facility]06-20-2024 Progress note* PT/OT/FIELD IDENTIFICATION SPECIALIST - NALLELY Nielsen - 02/01/2024 1:29 PM [...] RW Weight Bearing Status: WBAT Rt LE Telemetry/Horse Race Starter: Yes Oxygen Used: room air Other: fall [...] SERVIN/L Evaluation of progress towards goal: Problem: Bed Mobility Dates: Start: 01/31/24 Disciplines: OT Goal: Patient will perform bed mobility with Modified Elmore Dates: Start: 01/31/24 Expected End: 02/28/24 Description: Goal Description: Disciplines: OT Outcomes Date/Time User Outcome 02/01/24 1328 Azul Medrano SERVIN/L Progressing Goal Note filed on 02/01/24 1328 by MALATHI Nielsen/Lanie Evaluation of progress towards goal: Problem: Functional Mobility Dates: Start: 01/31/24 Disciplines: OT Goal: Patient will perform functional mobility with Modified Elmore Dates: Start: 01/31/24 Expected End: 02/28/24 Description: [...] Goal: Patient will perform transfers with Modified Elmore Dates: Start: 01/31/24 Expected End: 02/28/24 Description: Goal Description: Disciplines: OT Outcomes Date/Time User Outcome 02/01/24 1328 NALLELY Nielsen Not Progressing 01/31/24 1609 NALLELY Nielsen Progressing Goal Note filed on 02/01/24 1328 by NALLELY Nielsen Evaluation of progress towards goal: Occupational Therapy Care Plan (Resolved) There are no resolved problems. Principal Problem: Closed fracture of right hip, initial encounter ([facility]) Active Problems: Myah-prosthetic fracture around prosthetic hip Associated attestation - Ludy Ireland OTR/L - 02/01/2024 2:58 PM EDT I have reviewed and agree with this note and education documentation for this visit. [facility] [id number] Progress note* PT/OT/FIELD IDENTIFICATION SPECIALIST - Nick Fernandez PTA - 02/01/2024 11:57 [...] Weight Bearing Status: (P) WBAT Rt LE Telemetry/Horse Race Starter: (P) Yes Oxygen Used: (P) room air [...] Nick Fernandez PTA Progressing 01/31/24 1545 Nick eFrnandez PTA Progressing Goal Note filed on 02/01/24 [...] Closed fracture of right hip, initial encounter ([facility]) Active Problems: Myah-prosthetic fracture around prosthetic hip Associated attestation - Lindsay Infante, PT - 02/01/2024 3:54 PM EDT I have reviewed and agree with this note and education documentation for this visit. [facility] [employer] [id number] Progress note* Discharge Planning Note - JEWEL Crenshaw - 02/01/2024 11:36 AM EDT DISCHARGE PLANNING NOTE DC plan IPR: [facility] pt back. No auth needed. W/C tx cert in dc packet. Barriers: pain control on IV pain meds, Rt leg swollen - JEWEL Crenshaw 02/01/24 11:37 AM [employer]06-20-2024 Progress note* Significant Event - HUBERT Paul [...] at this time. HUBERT Patel PA-C 02/01/24 1057 [employer] Work Phone: 1(259) 657-254706-20-2024 Plan of care note* Plan of Care - Antionette Smith RN - 02/01/2024 10:19 AM EDT Problem: Pain Goal: Patient goal is pain score less than 4, able to rest, and participant in treatment plan as appropriate Description: INTERVENTIONS: 1. Encourage patient or legal auto claim representative to report early pain and ask [...] per policy 9. Teach patient or legal auto claim representative interventions for comforting Outcome: Progressing Note: [...] at the bedside 7. Instruct patient/ patient auto claim representative about use of safety devices 8. Include patient/ patient auto claim representative in decisions related to safety Outcome: Progressing Note: Evaluation of progress towards goal: free from falls Problem: Glucose Imbalance Goal: Clinical indication of glucose balance is achieved Description: Patient's goal is: INTERVENTIONS 1. Monitor blood glucose levels as ordered 2. Administer medications as ordered 3. Notify physician of ineffective treatment plan Outcome: Progressing Note: Evaluation of progress towards goal: blood glucose stable [facility]06-20-2024 Hospital Discharge instructions* Discharge Instructions* Leatha Saldivar [...] pressure medications if systolic blood pressure greater [id number] or less than 110 or heart rate [...] at 8:15 a.m. regarding recent surgery. Telephone number:[phone] 9. No driving and no operating heavy [...] Center 02/12/2024 8:15 AM Ang Figueroa MD [facility] Office Location: [place] [address] Call 911 immediately if you experience: Chest [...] Care Everywhere. * Femur Fracture Discharge Instructions ([place] [facility] Plan of care note * Plan of Care - Santi Parks RN - 01/31/2024 7:30 PM EDT Problem: Pain Goal: Patient goal is pain score less than 4, able to rest, and participant in treatment plan as appropriate Description: INTERVENTIONS: 1. Encourage patient or legal auto claim representative to report early pain and ask [...] per policy 9. Teach patient or legal auto claim representative interventions for comforting Outcome: Progressing Note: [...] at the bedside 7. Instruct patient/ patient auto claim representative about use of safety devices 8. Include patient/ patient auto claim representative in decisions related to safety Outcome: [...] hygiene technique 7. Identify and instruct patient/patient auto claim representative in use of appropriate isolation precautionsfor identified infection/symptoms 8. Provide and discuss with patient/patient auto claim representative on educational MDRO sheet 9. Encourage and monitor nutritional status daily and consult clinical appeals specialist if indicated 10. Implement neutropenic guidelines as needed 11. Review exposure to history of communicable disease and recent travel history on admission 12. Encourage annual influenza vaccine 13. Encourage pneumonia vaccine Outcome: Progressing Note: Evaluation of progress towards goal: Pt afebrile at this time, continue to monitor for signs infection Problem: Knowledge Deficit Goal: Patient/patient auto claim representative demonstrates understanding of disease process, treatment plan,medications, and discharge instructions Description: INTERVENTIONS 1. Complete learning assessment and assess knowledge base 2. Provide teaching at level of understanding 3. Provide teaching via preferred learning method(s) Outcome: Progressing Note: Evaluation of progress towards goal: POC discussed with patient. Questions answered PRN. [facility] [employer] [id number] Progress note* PT/OT/FIELD IDENTIFICATION SPECIALIST - NALLELY Nielsen - 01/31/2024 4:10 PM [...] RW Weight Bearing Status: WBAT Rt LE Telemetry/Horse Race Starter: Yes Oxygen Used: room air Other: fall [...] Goal Note filed on 01/31/24 160 by MALATHI Nielsen/Lanie Evaluation of progress towards goal: Problem: Bed Mobility Dates: Start: 01/31/24 Disciplines: OT Goal: Patient will perform bed mobility with Modified Elmore Dates: Start: 01/31/24 Expected End: 02/28/24 Description: Goal Description: Disciplines: OT Problem: Functional Mobility Dates: Start: 01/31/24 Disciplines: OT Goal: Patient will perform functional mobility with Modified Elmore Dates: Start: 01/31/24 Expected End: 02/28/24 Description: Goal Description: Disciplines: OT Outcomes Date/Time User Outcome 01/31/241608 NALLELY Nielsen Progressing Goal Note filed on 01/31/24 160 by MALATHI Nielsen/Lanie Evaluation of progress towards [...] Goal: Patient will perform transfers with Modified [place]more Dates: Start: 01/31/24 Expected End: 02/28/24 Description: Goal Description: Disciplines: OT Outcomes Date/Time User Outcome 01/31/24 1609 NALLELY Nielsen Progressing Goal Note filed on 01/31/24 1609 by NALLELY Nielsen Evaluation of progress towards goal: Occupational Therapy Care Plan (Resolved) There are no resolved problems. Principal Problem: Closed fracture of right hip, initial encounter ([facility]) Active Problems: Myah-prosthetic fracture around prosthetic hip Associated attestation - Ludy Ireland, OTR/L - 02/01/2024 7:28 AM EDT I have reviewed and agree with this note and education documentation for this visit. [employer] [id number] Progress note* PT/OT/FIELD IDENTIFICATION SPECIALIST - Nick Fernandez, SHERYL - 01/31/2024 3:56 PM EDT Physical Therapy [...] RW Weight Bearing Status: WBAT Rt LE Telemetry/Horse Race Starter: Yes Oxygen Used: room air Other: fall [...] Note filed on 01/31/24 154 by Nick eFrnandez PTA Evaluation of progress towards goal: Problem: [...] Closed fracture of right hip, initial encounter ([facility]) Active Problems: Myah-prosthetic fracture around prosthetic hip Associated attestation - Lindsay Infante, PT - 01/31/2024 4:14 PM EDT I have reviewed and agree with this note and education documentation for this visit. [facility]06-19-2024 Progress note* Discharge Planning Note - Alexandra Eric - 01/31/2024 3:48 PM EDT DISCHARGE PLANNING NOTE Referral sent to [facility], a division of [facility] P# [phone] [calling report];/[facility] (P# [calling report]; F# ) [facility]06-19-2024 Progress note* Discharge Planning Note - JEWEL Crenshaw - 01/31/2024 3:13 PM EDT Images from the original note were not included. DISCHARGE PLANNING NOTE SW met with patient introduce self & role. [facility]. Pt underwent IM nail on 01/18/24 and pt discharged to [facility]hab on 01/22/24. Pt was transferred back to [facility] on 01/28 after fall at rehab facility. [...] and pt would like to return to [facility] rehab. Referral was sent, await confirmation they can accept pt back. Services Requested: Services Requested Acute Rehab Name: [facility] . Patient choice offered: Other (comment) (pt current with provider) List Provided: Other (comment) Initial DC Assessment Completed: Yes Patient Goals: Goals: Goals (pt-stated) Evaluation of progress towards goal: pt plans to return to [facility]hab [place] to improve mobility and get home (pt-stated) Evaluation of progress towards goal: Participating in therapy - JEWEL Crenshaw 01/31/24 3:18 PM [facility]06-19-2024 Progress note* PT/OT/FIELD IDENTIFICATION SPECIALIST - Lindsay Infante, PT - 01/31/2024 1:02 [...] from lisinopril Chronic pain disorder Colon cancer ([facility]) COPD (chronic obstructive pulmonary disease) ([facility]) Depression Diabetes mellitus type 2, controlled ([facility]) Fibromyalgia, primary Fracture of right hip, closed, initial encounter ([facility]) 01/17/2024 GERD (gastroesophageal reflux disease) Hyperlipidemia Hypertension Insulin-treated type 2 diabetes mellitus ([facility]) Joint pain Kidney stones Liver disease Low back pain Neck pain Obesity Osteoarthritis Visual impairment Past Surgical History: Procedure Laterality Date BACK SURGERY COLON SURGERY resection, 2018, [facility] DAVINCI REPAIR HERNIA VENTRAL N/A 10/27/2021 Performed by Ridge Cedillo MD at [facility] DENTAL SURGERY pt had all teeth removed HERNIA REPAIR x's 2 INSERTION INTRAMEDULLARY NAIL FEMUR Right 01/30/2024 Performed by Ang Figueroa MD at [facility] INSERTION INTRAMEDULLARY NAIL FEMUR-TFNA HIP FX Right 01/18/2024 Performed by Ang Figueroa MD at [facility] ORTHOPEDIC SURGERY 2008 foot, infected foot REMOVAL HARDWARE INTRAMEDULLARY NAIL/KATERYNA FEMUR Right 01/30/2024 Performed by Ang Figueroa MD at [facility] 6 Clicks: Basic Mobility Turning from [...] RW Weight Bearing Status: WBAT Rt LE Telemetry/Horse Race Starter: Yes Other: fall risk Pain Assessment Pain [...] Shower chair Home Equipment: Rolling walker, Cane, Panel Edge Painter Prior Function Lives With: Alone Receives Help From: Neighbor Level of Mobility: Independent with ADLs and functional transfers or gait Homemaking Assistance: Independent (Except for driving) Other: Prior to injury pt completely independent without devices. He had been at [facility] just prior to this adm and [...] Closed fracture of right hip, initial encounter ([facility]) Active Problems: Myah-prosthetic fracture around prosthetic hip [facility]-19-2024 Progress note* PT/OT/FIELD IDENTIFICATION SPECIALIST - WILLARD Chavira/Lanie - 01/31/2024 11:28 AM [...] from lisinopril Chronic pain disorder Colon cancer ([facility]) COPD (chronic obstructive pulmonary disease) ([facility]) Depression Diabetes mellitus type 2, controlled ([facility]) Fibromyalgia, primary Fracture of right hip, closed, initial encounter ([facility]) 01/17/2024 GERD (gastroesophageal reflux disease) Hyperlipidemia Hypertension Insulin-treated type 2 diabetes mellitus ([facility]) Joint pain Kidney stones Liver disease Low back pain Neck pain Obesity Osteoarthritis Visual impairment Past Surgical History: Procedure Laterality Date BACK SURGERY COLON SURGERY resection, 2018, [facility] DAVINCI REPAIR HERNIA VENTRAL N/A 10/27/2021 Performed by Ridge Cedillo MD at [facility] D[facility] SURGERY pt had all teeth removed HERNIA REPAIR x's 2 INSERTION INTRAMEDULLARY NAIL FEMUR Right 01/30/2024 Performed by Ang Figueroa MD at [facility] INSERTION INTRAMEDULLARY NAIL FEMUR-TFNA HIP FX Right 01/18/2024 Performed by Ang Figueroa MD at [facility] ORTHOPEDIC SURGERY 2008 foot, infected foot REMOVAL HARDWARE INTRAMEDULLARY NAIL/KATERYNA FEMUR Right 01/30/2024 Performed by Ang Figueroa MD at [facility] Chief Complaint Patient presents with Fall [...] RW Weight Bearing Status: WBAT Rt LE Telemetry/Horse Race Starter: Yes Oxygen Used: room air Other: fall [...] Shower chair Home Equipment: Rolling walker, Cane, Panel Edge Painter Other : No AE/DME needs prior to [...] Patient will perform bed mobility with Modified Elmore Dates: Start: 01/31/24 Expected End: 02/28/24 Description: Goal Description: Disciplines: OT Problem: Functional Mobility Dates: Start: 01/31/24 Disciplines: OT Goal: Patient will perform functional mobility with Modified Elmore Dates: Start: 01/31/24 Expected End: 02/28/24 Description: [...] Goal: Patient will perform transfers with Modified Elmore Dates: Start: 01/31/24 Expected End: 02/28/24 Description: Goal Description: Disciplines: OT Occupational Therapy Care Plan (Resolved) There are no resolved problems. Principal Problem: Closed fracture of right hip, initial encounter ([facility]) Active Problems: Myah-prosthetic fracture around prosthetic hip [facility]06-19-2024 Consult note* Anne Ventura MD - 01/31/2024 [...] from lisinopril Chronic pain disorder Colon cancer ([facility]) COPD (chronic obstructive pulmonary disease) ([facility]) Depression Diabetes mellitus type 2, controlled ([facility]) Fibromyalgia, primary Fracture of right hip, closed, initial encounter ([facility]) 01/17/2024 GERD (gastroesophageal reflux disease) Hyperlipidemia Hypertension Insulin-treated type 2 diabetes mellitus ([facility]) Joint pain Kidney stones Liver disease Low back pain Neck pain Obesity Osteoarthritis Visual impairment PSH: Past Surgical History: Procedure Laterality Date BACK SURGERY COLON SURGERY resection, 2018, [facility] DAVINCI REPAIR HERNIA VENTRAL N/A 10/27/2021 Performed by Ridge Cedillo MD at [facility] DENTAL SURGERY pt had all teeth removed HERNIA REPAIR x's 2 INSERTION INTRAMEDULLARY NAIL FEMUR Right 01/30/2024 Performed by Ang Figueroa MD at [facility] INSERTION INTRAMEDULLARY NAIL FEMUR-TFNA HIP FX Right 01/18/2024 Performed by Ang Figueroa MD at [facility] ORTHOPEDIC SURGERY 2008 foot, infected foot REMOVAL HARDWARE INTRAMEDULLARY NAIL/KATERYNA FEMUR Right 01/30/2024 Performed by Ang Figueroa MD at [facility] Allergies Allergen Reactions Insulin Glargine Nausea [...] tablet 1,000 mcg, 1,000 mcg, oral, Daily, DOV MedranoOPTICAL ENGINEER, 1,000 mcg at 01/31/2448 cyclobenzaprine (FLEXERIL) tablet [...] mg, 1 mg, intravenous, Q3H PRN, Jalen Zhou MD, 1 mg at01/31/24 0755 hyoscyamine sulfate [...] Nightly, Demond Frazier MD, 2 tablet at 01/30/242119 sodium chloride 0.9 % flush 3 mL, 3 mL, intravenous, PRN, Jalen Zhou MD, 3 mL at 01/31/24 0746 sucralfate [...] min Stress: No Stress Concern Present (01/22/2024) [employer] [place] [employer] [facility] - Occupational Stress Questionnaire Feeling of Stress : Not at all Social Connections: Socially Isolated (01/22/2024) Social Connection and Isolation Panel [NHANES] Frequency of Communication with Friends and Family: More than three times a week Frequency of Social Gatherings with Friends and Family: More than three times a week Attends Nondenominational Services: Never Active Member of Clubs or [...] you for the consultation Anne Ventura MD [employer] Work Phone: 1(862) 137-631606-19-2024 Consult note* Anne Ventura MD - 01/31/2024 [...] from lisinopril Chronic pain disorder Colon cancer ([facility]) COPD (chronic obstructive pulmonary disease) ([facility]) Depression Diabetes mellitus type 2, controlled ([facility]) Fibromyalgia, primary Fracture of right hip, closed, initial encounter ([facility]) 01/17/2024 GERD (gastroesophageal reflux disease) Hyperlipidemia Hypertension Insulin-treated type 2 diabetes mellitus ([facility]) Joint pain Kidney stones Liver disease Low back pain Neck pain Obesity Osteoarthritis Visual impairment PSH: Past Surgical History: Procedure Laterality Date BACK SURGERY COLON SURGERY resection, 2018, [facility] DAVINCI REPAIR HERNIA VENTRAL N/A 10/27/2021 Performed by Ridge Cedillo MD at [facility] D[facility] SURGERY pt had all teeth removed HERNIA REPAIR x's 2 INSERTION INTRAMEDULLARY NAIL FEMUR Right 01/30/2024 Performed by Ang Figueroa MD at [facility] INSERTION INTRAMEDULLARY NAIL FEMUR-TFNA HIP FX Right 01/18/2024 Performed by Ang Figueroa MD at [facility] ORTHOPEDIC SURGERY 2008 foot, infected foot REMOVAL HARDWARE INTRAMEDULLARY NAIL/KATERYNA FEMUR Right 01/30/2024 Performed by Ang Figueroa MD at [facility] Allergies Allergen Reactions Insulin Glargine Nausea [...] mcg, 1,000 mcg, oral, Daily, Marsha Flores APRN-OPTICAL ENGINEER, 1,000 mcg at 01/31/2448 cyclobenzaprine (FLEXERIL) tablet [...] 1 mg, 1 mg, oral, Daily, Marsha Flores APRN-OPTICAL ENGINEER, 1 mg at 01/31/24 0748 gabapentin (NEURONTIN) tablet 800 mg, 800 mg, oral, TID, Demond Frazier MD, 800 mg at 01/31/24 0522 glucagon HCL injection 1 mg, 1 mg, intramuscular, PRN, Demond Frazier MD hydrALAZINE (APRESOLINE) injection 10 mg, 10 mg, intravenous, Q6H PRN, Demond Frazier MD HYDROmorphone (PF) (DILAUDID) injection 1 mg, 1 mg, intravenous, Q3H PRN, Jalen Zhou MD, 1 mg at01/31/24 0755 hyoscyamine sulfate [...] 3 mL, 3 mL, intravenous, PRN, Jalen Zhou MD, 3 mL at 01/31/24 0746 sucralfate [...] min Stress: No Stress Concern Present (01/22/2024) [employer] [place] [employer] - Occupational Stress Questionnaire Feeling of Stress : Not at all Social Connections: Socially Isolated (01/22/2024) Social Connection and Isolation Panel [NHANES] Frequency of Communication with Friends and Family: More than three times a week Frequency of Social Gatherings with Friends and Family: More than three times a week Attends Nondenominational Services: Never Active Member of Clubs or [...] consultation Anne Ventura MD * Marsha Flores APRN-OPTICAL ENGINEER - 01/29/2024 12:43 PM EDTAssociated Order(s): CONSULT BENIGN HEMATOLOGY AND BLOOD MANAGEMENT Benign Hematology/ Patient Blood Management Consultation: Dr. Paul Flores ENGINEERING PROJECT MANAGER Laura GASPAR Patient ID: Ruth Smith, [...] from lisinopril Chronic pain disorder Colon cancer ([facility]) COPD (chronic obstructive pulmonary disease) ([facility]) Depression Diabetes mellitus type 2, controlled ([facility]) Fibromyalgia, primary Fracture of right hip, closed, initial encounter ([facility]) 01/17/2024 GERD (gastroesophageal reflux disease) Hyperlipidemia Hypertension Insulin-treated type 2 diabetes mellitus ([facility]) Joint pain Kidney stones Liver disease Low back pain Neck pain Obesity Osteoarthritis Visual impairment PAST SURGICAL HISTORY: Past Surgical History: Procedure Laterality Date BACK SURGERY COLON SURGERY resection, 2018, [facility] DAVINCI REPAIR HERNIA VENTRAL N/A 10/27/2021 Performed by Ridge Cedillo MD at [facility] DENTAL SURGERY pt had all teeth removed HERNIA REPAIR x's 2 INSERTION INTRAMEDULLARY NAIL FEMUR-TFNA HIP FX Right 01/18/2024 Performed by Ang Figueroa MD at [facility] ORTHOPEDIC SURGERY 2008 foot, infected foot [...] min Stress: No Stress Concern Present (01/22/2024) [employer] [place] [employer] - Occupational Stress Questionnaire Feeling of Stress : Not at all Social Connections: Socially Isolated (01/22/2024) Social Connection and Isolation Panel [NHANES] Frequency of Communication with Friends and Family: More than three times a week Frequency of Social Gatherings with Friends and Family: More than three times a week Attends Nondenominational Services: Never Active Member of Clubs or [...] mg 1,000 mg intravenous Q6H Zabrina Sibley APRN-OPTICAL ENGINEER Stopped at 01/28/24 4494 Current Outpatient Medications on File Prior to [...] 5 (L) 01/29/2024 IRONSAT 16 (L) 01/17/2024 [id number] 307 01/29/2024 [id number] 242 01/17/2024 FOLATE 8.4 01/29/2024 FOLATE 9.3 [...] for medical decision making only. Can use studdex messaging anytime during business hours Monday-Monday 8 am to 5 pm. Marsha Flores ENGINEERING PROJECT MANAGER Patient Blood Management/Bloodless Medicine Office [phone] DAGO Medrano 01/29/24 1342 documented in this encounter[facility] Plan of care note * Plan of Care - Mia Goddard RN - 01/31/2024 9:06 AM EDT Problem: Pain Goal: Patient goal is pain score less than 4, able to rest, and participant in treatment plan as appropriate Description: INTERVENTIONS: 1. Encourage patient or legal auto claim representative to report early pain and ask [...] per policy 9. Teach patient or legal auto claim representative interventions for comforting Outcome: Progressing Note: Evaluation of progress towards goal: Patinet rates pain level between 6 to 10 is medicated asordered, states has acceptable pain relief. Will continue to moniter [facility]06[facility] Plan of care note* Plan of Care - Santi Parks RN - 01/30/2024 7:35 PM EDT Problem: Pain Goal: Patient goal is pain score less than 4, able to rest, and participant in treatment plan as appropriate Description: INTERVENTIONS: 1. Encourage patient or legal auto claim representative to report early pain and ask [...] per policy 9. Teach patient or legal auto claim representative interventions for comforting Outcome: Progressing Note: [...] at the bedside 7. Instruct patient/ patient auto claim representative about use of safety devices 8. Include patient/ patient auto claim representative in decisions related to safety Outcome: [...] hygiene technique 7. Identify and instruct patient/patient auto claim representative in use of appropriate isolation precautionsfor identified infection/symptoms 8. Provide and discuss with patient/patient auto claim representative on educational MDRO sheet 9. Encourage and monitor nutritional status daily and consult clinical appeals specialist if indicated 10. Implement neutropenic guidelines as needed 11. Review exposure to history of communicable disease and recent travel history on admission 12. Encourage annual influenza vaccine 13. Encourage pneumonia vaccine Outcome: Progressing Note: Evaluation of progress towards goal: Pt afebrile at this time, continue to monitor for signs infection Problem: Knowledge Deficit Goal: Patient/patient auto claim representative demonstrates understanding of disease process, treatment plan,medications, and discharge instructions Description: INTERVENTIONS 1. Complete learning assessment and assess knowledge base 2. Provide teaching at level of understanding 3. Provide teaching via preferred learning method(s) Outcome: Progressing Note: Evaluation of progress towards goal: POC discussed with patient. Questions answered PRN. [facility] Plan of care note* Plan of Care - Rachel Almanzar RN - 01/30/2024 6:16 PM EDT Problem: Pain Goal: Patient goal is pain score less than 4, able to rest, and participant in treatment plan as appropriate Description: INTERVENTIONS: 1. Encourage patient or legal auto claim representative to report early pain and ask [...] per policy 9. Teach patient or legal auto claim representative interventions for comforting Outcome: Progressing Note: Evaluation of progress towards goal: Encourage patient or legal auto claim representative to report early pain and ask [...] at the bedside 7. Instruct patient/ patient auto claim representative about use of safety devices 8. Include patient/ patient auto claim representative in decisions related to safety Outcome: [...] hygiene technique 7. Identify and instruct patient/patient auto claim representative in use of appropriate isolation precautionsfor identified infection/symptoms 8. Provide and discuss with patient/patient auto claim representative on educational MDRO sheet 9. Encourage and monitor nutritional status daily and consult clinical appeals specialist if indicated 10. Implement neutropenic guidelines as [...] and monitor nutritional status daily and consult clinical appeals specialist if indicated. Encourage annual influenza vaccine and pneumonia vaccine. [employer] [id number] NoteClinical history: Postop hardware evaluation Right femur: [...] by Jun Ortega MD on 01/30/2024 1:28 [id number] Procedure note* Op Note - Ang Figueroa MD - 01/30/2024 9:23 AM EDT DATE OF OPERATION: January 30, 2024 PREOPERATIVE DIAGNOSIS: 1. right intertrochanteric hip fracture with new periprosthetic subtrochanteric fracture after a second fall at rehab POSTOPERATIVE DIAGNOSIS: 1. Same OPERATION: 1. IM nail right intertrochanteric/subtrochanteric hip fracture.- 04844 2. Removal hardware Right femur - SURGEON: Ang Figueroa MD PHOTOGRAPHER: Jalen Zhou MD ANESTHESIA: General. MEDICATIONS: vanc IV preop. [...] , damage to normal structure, PE, DVT, [place], stroke, nonunion, malunion, chronic pain, arthrosis, arthritis, [...] was then placed by using a perfect hopi technique with fluoroscopy. The drill bit was [...] at time of surgery. ANG FIGUEROA MD [employer] [id number] Attending History and physical note* Ang Figueroa MD - 01/30/2024 9:19 AM EDT Images from the original note were not included. I have seen and evaluated the patient. The above documentation in accurate and he is optimized for the planned intervention. ANG FIGUEROA MD Source Note - nAg Figueroa MD - 01/29/2024 9:00 AM EDT [...] based on above criteria. Ang Figueroa MD. [employer] Work Phone: 1(126) 813-482406-18-2024 History and physical note* Ang Figueroa MD [...] Frazier MD - 01/29/2024 10:52 AM EDT [facility] PHYSICAL EXAM Patient's [...] intertrochanteric hip fracture, [facility]. Patient was recently discharged to [facility] after right intertrochanteric hip fracture surgery. Two days ago, on Monday, patient failed and landed on his right hip causing worsening pain.Initial hip x-ray at that time was unremarkable without evidence of fracture. However, pain did notimprove and progressively worsen. CT brain hip demonstrated periprosthetic right hip fracture. Therefore, he was transferred to [facility] for surgical intervention. Patient was seen [...] from lisinopril Chronic pain disorder Colon cancer ([facility]) COPD (chronic obstructive pulmonary disease) ([facility]) Depression Diabetes mellitus type 2, controlled ([facility]) Fibromyalgia, primary Fracture of right hip, closed, initial encounter ([facility]) 01/17/2024 GERD (gastroesophageal reflux disease) Hyperlipidemia Hypertension Insulin-treated type 2 diabetes mellitus ([facility]) Joint pain Kidney stones Liver disease Low back pain Neck pain Obesity Osteoarthritis Visual impairment PAST SURGICAL HISTORY: Past Surgical History: Procedure Laterality Date BACK SURGERY COLON SURGERY resection, 2018, [facility] DAVINCI REPAIR HERNIA VENTRAL N/A 10/27/2021 Performed by Ridge Cedillo MD at [facility] DENT[facility] SUR[facility]ERY pt had all teeth removed HERNIA REPAIR x's 2 INSERTION INTRAMEDULLARY NAIL FEMUR-TFNA HIP FX Right 01/18/2024 Performed by Ang Figueroa MD at [facility]GERY 2008 foot, infected foot [...] min Stress: No Stress Concern Present (01/22/2024) [employer] [place] [employer] - Occupational Stress Questionnaire Feeling of Stress : Not at all Social Connections: Socially Isolated (01/22/2024) Social Connection and Isolation Panel [NHANES] Frequency of Communication with Friends and Family: More than three times a week Frequency of Social Gatherings with Friends and Family: More than three times a week Attends Nondenominational Services: Never Active Member of Clubs or [...] and corrected by editing. documented in this encounter[facility]24 Progress note* PT/OT/FIELD IDENTIFICATION SPECIALIST - Nohemy Han OTR/L - 01/30/2024 8:43 AM EDT Occupational Therapy CANCEL - Deferred OT attempted. Pt off floor at surgery. Will check back as able. [facility] Progress note* PT/OT/FIELD IDENTIFICATION SPECIALIST - Lindsay Infante, PT - 01/30/2024 8:41 AM EDT Physical Therapy CANCEL - Deferred (Pt currently off the unit in surgery. Will complete PT eval post-op as able.) [facility]06-[facility] Plan of care note* Plan of Care - Santi Parks RN - 01/29/2024 8:51 PM EDT Problem: Pain Goal: Patient goal is pain score less than 4, able to rest, and participant in treatment plan as appropriate Description: INTERVENTIONS: 1. Encourage patient or legal auto claim representative to report early pain and ask [...] per policy 9. Teach patient or legal auto claim representative interventions for comforting Outcome: Progressing Note: [...] at the bedside 7. Instruct patient/ patient auto claim representative about use of safety devices 8. Include patient/ patient auto claim representative in decisions related to safety Outcome: [...] hygiene technique 7. Identify and instruct patient/patient auto claim representative in use of appropriate isolation precautionsfor identified infection/symptoms 8. Provide and discuss with patient/patient auto claim representative on educational MDRO sheet 9. Encourage and monitor nutritional status daily and consult clinical appeals specialist if indicated 10. Implement neutropenic guidelines as needed 11. Review exposure to history of communicable disease and recent travel history on admission 12. Encourage annual influenza vaccine 13. Encourage pneumonia vaccine Outcome: Progressing Note: Evaluation of progress towards goal: Pt afebrile at this time, continue to monitor for signs infection Problem: Knowledge Deficit Goal: Patient/patient auto claim representative demonstrates understanding of disease process, treatment plan,medications, and discharge instructions Description: INTERVENTIONS 1. Complete learning assessment and assess knowledge base 2. Provide teaching at level of understanding 3. Provide teaching via preferred learning method(s) Outcome: Progressing Note: Evaluation of progress towards goal: POC discussed with patient. Questions answered PRN. [facility] Consult note* Marsha Flores APRN-OPTICAL ENGINEER - 01/29/2024 12:43 PM EDTAssociated Order(s): CONSULT [...] from lisinopril Chronic pain disorder Colon cancer ([facility]) COPD (chronic obstructive pulmonary disease) ([facility]) Depression Diabetes mellitus type 2, controlled ([facility]) Fibromyalgia, primary Fracture of right hip, closed, initial encounter ([facility]) 01/17/2024 GERD (gastroesophageal reflux disease) Hyperlipidemia Hypertension Insulin-treated type 2 diabetes mellitus ([facility]) Joint pain Kidney stones Liver disease Low back pain Neck pain Obesity Osteoarthritis Visual impairment PAST SURGICAL HISTORY: Past Surgical History: Procedure Laterality Date BACK SURGERY COLON SURGERY resection, 2018, [facility] DAVINCI REPAIR HERNIA VENTRAL N/A 10/27/2021 Performed by Ridge Cedillo MD at [facility] pt had all teeth removed HERNIA REPAIR x's 2 INSERTION INTRAMEDULLARY NAIL FEMUR-TFNA HIP FX Right 01/18/2024 Performed by Ang Figueroa MD at [facility]GERY 2008 foot, infected foot [...] min Stress: No Stress Concern Present (01/22/2024) [employer] [place] [employer] - Occupational Stress Questionnaire Feeling of Stress : Not at all Social Connections: Socially Isolated (01/22/2024) Social Connection and Isolation Panel [NHANES] Frequency of Communication with Friends and Family: More than three times a week Frequency of Social Gatherings with Friends and Family: More than three times a week Attends Nondenominational Services: Never Active Member of Clubs or [...] intravenous Q6H DAGO Quezada Stopped at 01/28/24 3721 Current Outpatient Medications on File Prior to [...] 5 (L) 01/29/2024 IRONSAT 16 (L) 01/17/2024 [id number] 307 01/29/2024 [id number] 242 01/17/2024 FOLATE 8.4 01/29/2024 FOLATE 9.3 [...] Flores NP Patient Blood Management/Bloodless Medicine Office [phone] DAGO Medrano 01/29/24 1342 [employer] Work Phone: 1(457) 766-291106-17-2024 History and physical note* Demond Frazier MD - 01/29/2024 10:52 AM EDT [facility] HISTORY AND PHYSICAL EXAM Patient's [...] intertrochanteric hip fracture, [facility]. Patient was recently discharged to [facility] after right intertrochanteric hip fracture surgery. Two days ago, on Monday, patient failed and landed on his right hip causing worsening pain.Initial hip x-ray at that time was unremarkable without evidence of fracture. However, pain did notimprove and progressively worsen. CT brain hip demonstrated periprosthetic right hip fracture. Therefore, he was transferred to [facility] for surgical intervention. Patient was seen [...] from lisinopril Chronic pain disorder Colon cancer ([facility]) COPD (chronic obstructive pulmonary disease) ([facility]) Depression Diabetes mellitus type 2, controlled ([facility]) Fibromyalgia, primary Fracture of right hip, closed, initial encounter ([facility]) 01/17/2024 GERD (gastroesophageal reflux disease) Hyperlipidemia Hypertension Insulin-treated type 2 diabetes mellitus ([facility]) Joint pain Kidney stones Liver disease Low back pain Neck pain Obesity Osteoarthritis Visual impairment PAST SURGICAL HISTORY: Past Surgical History: Procedure Laterality Date BACK SURGERY COLON SURGERY resection, 2018, [facility] DAVINCI REPAIR HERNIA VENTRAL N/A 10/27/2021 Performed by Ridge Cedillo MD at [facility] pt had all teeth removed HERNIA REPAIR x's 2 INSERTION INTRAMEDULLARY NAIL FEMUR-TFNA HIP FX Right 01/18/2024 Performed by Ang Figueroa MD at [facility]GERY 2008 foot, infected foot [...] min Stress: No Stress Concern Present (01/22/2024) [employer] [place] [employer] - Occupational Stress Questionnaire Feeling of Stress : Not at all Social Connections: Socially Isolated (01/22/2024) Social Connection and Isolation Panel [NHANES] Frequency of Communication with Friends and Family: More than three times a week Frequency of Social Gatherings with Friends and Family: More than three times a week Attends Nondenominational Services: Never Active Member of Clubs or [...] has been identified and corrected by editing. [facility] Work Phone: 1(181) 984-632406-17-2024 Emergency department Triage note* Scarlett Yang RN - 01/29/2024 10:35 AM EDT Pt arrives to ED from Dr. Figueroa's office. Pt had a right hip replacement per Dr. Figueroa on 01/17 and hasbeen recovering at inpatient rehab at [facility] since then. Pt had a fall on 01/26 and imaging confirmed that he had a new right femur fx around the recently placed kateryna. Pt was seen for the first time this morning by Dr. Figueroa who wanted pt sent to [facility] ER for admission to go to OR and have surgery. Ptis alert and oriented during triage appearing to be in severe pain after movement to stretcher. [facility] Emergency department Note* Scarlett Yang RN - 01/29/2024 10:35 AM EDT Pt arrives to ED from Dr. Figueroa's office. Pt had a right hip replacement per Dr. Figueroa on 01/17 and hasbeen recovering at inpatient rehab at [facility] since then. Pt had a fall on 01/26 and imaging confirmed that he had a new right femur fx around the recently placed kateryna. Pt was seen for the first time this morning by Dr. Figueroa who wanted pt sent to [facility] ER for admission to go to OR [...] hospitalist - OR tomorrow documented in this encounterFisher[facility]06-[facility] Emergency department Note* Zuly Liu RN - 01/29/2024 10:26 AM EDT Bed: 16 Expected date: Expected time: Means of arrival: Comments: Dr. Figueroa office call ahead Ruth Gray Fell post of hip fracture - broke around nail from recent hip fracture -needs admitted to hospitalist - OR tomorrow [facility] History of Present illness Narrative* Jalen Zhou MD - 01/29/2024 9:00 AM EDT INTERVAL [...] subtrochanteric fracture of right femur, initial encounter ([facility]) PLAN: Nonweightbearing to the right lower extremity We will send the patient to the emergency department to be admitted by the medicine team. He will need medical clearance. Pain control, ice Plan for removal of right hip shortness inflammation nail and revision open reduction internal fixation of right proximal femur with long cephalomedullary nail Hold Lovenox for surgery NPO midnight Jalen Zhou MD Resident Attestation: The patient was seen [...] criteria. Ang Figueroa MD. documented in this encounterFisher[facility]06-10-2024 Miscellaneous Notes* Discharge Planning Note - Mendoza Pritchett - 01/22/2024 4:03 PM EDT DISCHARGE PLANNING NOTE CRF sent to [facility] * Discharge Planning Note - JEWEL Crenshaw - 01/22/2024 3:40 PM EDT Images from the original note were not included. DISCHARGE PLANNING NOTE DC plan will be IPR: [facility] has accepted pt. Pt is agreeable to [facility]. No auth needed. Pt will discharge today. Transport arranged for 5pm. Patient, RN, facility all aware. CRF sent. W/C tx cert in dc packet Services Requested: Services Requested Discharge Disposition: Acute rehab [facility] Does the patient need discharge transportation arranged?: Yes Patient choice offered: Yes List Provided: Yes [facility] List Provided: [facility] Facility Initial DC Assessment Completed: Yes Patient Goals: Goals: Goals <enter goal here> (pt-stated) Evaluation of progress towards goal: possible rehab placement vs home pending progress, recommendations and pt decision - JEWEL Crenshaw 01/22/24 3:44 PM * Discharge Planning Note - Cata Maravilla - 01/22/2024 3:00 PM EDT DISCHARGE PLANNING NOTE Confirmed WC from PTN via [employer] for 5:00pm shredder picker from [facility], transport to [facility] They are subbing with BLS * Discharge Planning Note - Mendoza Pritchett - 01/22/2024 2:06 PM EDT DISCHARGE PLANNING NOTE Referral sent to [facility], a division of [facility] P# [phone] [calling report];/[facility] (P# [calling report]; F# ) * Discharge Planning Note - JEWEL Crenshaw - 01/22/2024 2:01 PM EDT DISCHARGE PLANNING NOTE SW informed that [facility] does not currently have [...] Description: INTERVENTIONS: 1. Encourage patient or legal auto claim representative to report early pain and ask [...] per policy 9. Teach patient or legal auto claim representative interventions for comforting Outcome: Adequate for [...] at the bedside 7. Instruct patient/ patient auto claim representative about use of safety devices 8. Include patient/ patient auto claim representative in decisions related to safety Outcome: [...] hygiene technique 7. Identify and instruct patient/patient auto claim representative in use of appropriate isolation precautionsfor identified infection/symptoms 8. Provide and discuss with patient/patient auto claim representative on educational MDRO sheet 9. Encourage and monitor nutritional status daily and consult clinical appeals specialist if indicated 10. Implement neutropenic guidelines as [...] any changes. Problem: Knowledge Deficit Goal: Patient/patient auto claim representative demonstrates understanding of disease process, treatment [...] be free from fall Description: Interventions: 1. [place] to environment 2. Hourly rounds addressing the [...] non-skid footwear 11. Teach patient and patient auto claim representative to maintain environment for safety and [...] (cane, walker) within reach 19. Request patient auto claim representative bring adaptive equipment/mobility aids from home or obtain and provide as needed 20. Consult pharmacy regarding effects of med's affecting mobility, cognition, and alternatives 21. Obtain physician order for PT if risk factors associated with mobility are present 22. Obtain physician order for OT as appropriate 23. Utilize diversional activities 24. Educate patient and patient auto claim representative how to maintain a safe environment during visitationtimes (notify nurse prior to leaving bedside) 25. Consider appropriateness of medical or non-medical collector 26. Set up voiding schedule as appropriate [...] pt and pt would like to try [facility]. Referral sent. Awaiting acceptance. W/C tx cert in dc packet. - JEWEL Crenshaw 01/22/24 11:19 AM * Discharge Planning Note - Jackie Caal - 01/22/2024 11:13 AM EDT DISCHARGE PLANNING NOTE Referral to [facility] in [place] (P# ; F# ) * PT/OT/FIELD IDENTIFICATION SPECIALIST - ALICIA Banda - 01/22/2024 8:31 AM [...] belt, RW Weight Bearing Status: WBAT RLE Telemetry/Horse Race Starter: No Oxygen Used: room air Other: fall [...] and was able to exchange L sock. Nuclear Spectroscopist assisted with R foot. Pt then donned [...] and was able to exchange L sock. Nuclear Spectroscopist assisted with R foot. Pt then donned [...] Patient will perform bed mobility with Modified [place] Dates: Start: 01/19/24 Expected End: 02/09/24 Description: [...] Patient will perform functional mobility with Modified [place] Dates: Start: 01/19/24 Expected End: 02/09/24 Description: [...] Vogt SERVIN/L Not Progressing 01/20/24 0945 Katlin Buster, SERVIN/L Progressing Goal Note filed on 01/22/24 1054 by Ludy Ireland OTR/L Evaluation of progress towards goal: Problem: Sitting [...] Progressing 01/21/24 1053 Ludy Vogt SERVIN/L Progressing 01/19/24 1531 Nano Maher SERVIN/L Progressing Goal Note filed on 01/22/24 1054 by WILLARD Banda/Lanie Evaluation of progress towards goal: Problem: Transfers Dates: Start: 01/19/24 Disciplines: OT Goal: Patient will perform transfers with Modified [place] Dates: Start: 01/19/24 Expected End: 02/09/24 Description: [...] Closed fracture of right hip, initial encounter ([facility]) Active Problems: Closed displaced intertrochanteric fracture of right femur ([facility]) * PT/OT/FIELD IDENTIFICATION SPECIALIST - Shahrzad Garcias PTA - 01/22/2024 8:30 [...] RW Weight Bearing Status: WBAT R LE Telemetry/Horse Race Starter: No Oxygen Used: room air Other: fall [...] complete. Pt used gait belt as leg software test technician to assist RLE OOB. Pt tends to hold his breath with transitions and displays difficulty foloring direction for breathing technique from database report writer. Pt reporting dizziness intially upon sitting [...] Date/Time User Outcome 01/22/24 1051 Shahrzad Garcias, CLASSIFIED ADVERTISING CLERK Progressing 01/21/24 1741 Shahrzad Garcias, CLASSIFIED ADVERTISING CLERK Progressing 01/21/24 1309 Shahrzad Garcias, CLASSIFIED ADVERTISING CLERK Progressing 01/20/24 1607 Shahrzad Garcias, CLASSIFIED ADVERTISING CLERK Progressing 01/20/24 1036 Shahrzad Garcias, CLASSIFIED ADVERTISING CLERK Progressing 01/19/24 1721 Shahrzad Garcias, CLASSIFIED ADVERTISING CLERK Progressing Goal Note filed on 01/22/24 1051 by Shahrzad Garcias PTA Evaluation of progress towards goal: Problem: Bed Mobility Dates: Start: 01/19/24 Disciplines: PT Goal: Patient will perform bed mobility with Minimum Assist Dates: Start: 01/19/24 Expected End: 02/02/24 Description: Goal Description: Disciplines: PT Outcomes Date/Time User Outcome 01/22/24 1051 Shahrzad Garcais, CLASSIFIED ADVERTISING CLERK Progressing 01/21/24 1741 Shahrzad Garcias, CLASSIFIED ADVERTISING CLERK Progressing 01/21/24 1309 Shahrzad Garcias, CLASSIFIED ADVERTISING CLERK Progressing 01/20/24 1607 Shahrzad Garcias, CLASSIFIED ADVERTISING CLERK Progressing 01/20/24 1036 Shahrzad Garcias, CLASSIFIED ADVERTISING CLERK Progressing 01/19/24 1721 Shahrzad Garcias, CLASSIFIED ADVERTISING CLERK Progressing Goal Note filed on 01/22/24 1051 by Shahrzad Garcias PTA Evaluation of progress towards goal: Problem: Gait Dates: Start: 01/19/24 Disciplines: PT Goal: Patient will perform gait with Contact Guard Dates: Start: 01/19/24 Expected End: 02/02/24 Description: With_rw___,__150__feet Goal Description: Disciplines: PT Outcomes Date/Time User Outcome 01/22/24 1051 Shahrzad Garcias, CLASSIFIED ADVERTISING CLERK Progressing 01/21/24 1741 Shahrzad Garcias, CLASSIFIED ADVERTISING CLERK Progressing 01/21/24 1309 Shahrzad Garcias, CLASSIFIED ADVERTISING CLERK Progressing 01/20/24 1607 Shahrzad Garcias, CLASSIFIED ADVERTISING CLERK Progressing 01/20/24 1036 Shahrzad Garcias, CLASSIFIED ADVERTISING CLERK Progressing 01/19/24 1721 Shahrzad Garcias, CLASSIFIED ADVERTISING CLERK Progressing Goal Note filed on 01/22/24 1051 by Shahrzad Garcias PTA Evaluation of progress towards goal: Problem: Standing Balance Dates: Start: 01/19/24 Disciplines: PT Goal: Improve balance to good Dates: Start: 01/19/24 Expected End: 02/02/24 Description: Static Dynamic- good (-) with support of rw Disciplines: PT Outcomes Date/Time User Outcome 01/22/24 1051 Shahrzad Garcias, CLASSIFIED ADVERTISING CLERK Progressing 01/21/24 1741 Shahrzad Garcias, CLASSIFIED ADVERTISING CLERK Progressing 01/21/24 1309 Shahrzad Garcias, CLASSIFIED ADVERTISING CLERK Not Progressing 01/20/24 1036 Shahrzad Garcias, CLASSIFIED ADVERTISING CLERK Progressing 01/19/24 1721 Shahrzad Garcias CLASSIFIED ADVERTISING CLERK Progressing Goal Note filed on 01/22/24 1051 by Shahrzad Garcias PTA Evaluation of progress towards goal: Problem: Strength Dates: Start: 01/19/24 Disciplines: PT Goal: Improve strength Dates: Start: 01/19/24 Expected End: 02/02/24 Description: Of extremity/ location:Complete 20 reps bilat UE/LE ex's To facilitate: Disciplines: PT Outcomes Date/Time User Outcome 01/22/24 1051 Shahrzad Garcias, CLASSIFIED ADVERTISING CLERK Progressing 01/21/24 1741 Shahrzad Garcias, CLASSIFIED ADVERTISING CLERK Progressing 01/21/24 1309 Shahrzad Garcias, CLASSIFIED ADVERTISING CLERK Progressing 01/20/24 1607 Shahrzad Garcias, CLASSIFIED ADVERTISING CLERK Progressing 01/20/24 1036 Shahrzad Garcias, CLASSIFIED ADVERTISING CLERK Progressing 01/19/24 1721 Shahrzad Garcias PTA Progressing Goal Note filed on 01/22/24 1051 by Shahrzad Garcias PTA Evaluation of progress towards goal: Problem: Transfers Dates: Start: 01/19/24 Disciplines: PT Goal: Patient will perform transfers with Contact Guard Dates: Start: 01/19/24 Expected End: 02/02/24 Description: Goal Description: Disciplines: PT Outcomes Date/Time User Outcome 01/22/24 1051 Shahrzad Garcias, CLASSIFIED ADVERTISING CLERK Progressing 01/21/24 1741 Shahrzad Garcias, CLASSIFIED ADVERTISING CLERK Progressing 01/21/24 1309 Shahrzad Garcias, CLASSIFIED ADVERTISING CLERK Not Progressing 01/20/24 1607 Shahrzad Garcias, CLASSIFIED ADVERTISING CLERK Progressing 01/20/24 1036 Shahrzad Garcias, CLASSIFIED ADVERTISING CLERK Progressing 01/19/24 1721 Shahrzad Garcias PTA Progressing Goal Note filed on 01/22/24 1051 by Shahrzad Garcias PTA Evaluation of progress towards goal: Physical Therapy Care Plan (Resolved) There are no resolved problems. Principal Problem: Closed fracture of right hip, initial encounter ([facility]) Active Problems: Closed displaced intertrochanteric fracture of right femur ([facility]) Associated attestation - Brady Jauregui PT - [...] Description: INTERVENTIONS: 1. Encourage patient or legal auto claim representative to report early pain and ask [...] per policy 9. Teach patient or legal auto claim representative interventions for comforting Outcome: Progressing Note: [...] at the bedside 7. Instruct patient/ patient auto claim representative about use of safety devices 8. Include patient/ patient auto claim representative in decisions related to safety Outcome: [...] hygiene technique 7. Identify and instruct patient/patient auto claim representative in use of appropriate isolation precautionsfor identified infection/symptoms 8. Provide and discuss with patient/patient auto claim representative on educational MDRO sheet 9. Encourage and monitor nutritional status daily and consult clinical appeals specialist if indicated 10. Implement neutropenic guidelines as needed 11. Review exposure to history of communicable disease and recent travel history on admission 12. Encourage annual influenza vaccine 13. Encourage pneumonia vaccine Outcome: Progressing Note: Evaluation of progress towards goal: Pt afebrile at this time, continue to monitor for signs infection Problem: Knowledge Deficit Goal: Patient/patient auto claim representative demonstrates understanding of disease process, treatment plan,medications, and discharge instructions Description: INTERVENTIONS 1. Complete learning assessment and assess knowledge base 2. Provide teaching at level of understanding 3. Provide teaching via preferred learning method(s) Outcome: Progressing Note: Evaluation of progress towards goal: POC discussed with patient. Questions answered PRN. * PT/OT/FIELD IDENTIFICATION SPECIALIST - NALLELY Grey 01/21/2024 5:01 PM EDT [...] RW Weight Bearing Status: WBAT Rt LE Telemetry/Horse Race Starter: No Oxygen Used: room air Other: fall [...] Distance: 40ft x2 Other: Pt ambulated within [place] this date with use of RW for [...] Patient will perform bed mobility with Modified [place] Dates: Start: 01/19/24 Expected End: 02/09/24 Description: Goal Description: Disciplines: OT Outcomes Date/Time User Outcome 01/21/24 1053 Ludy Vogt, SERVIN/L Progressing 01/20/24 1610 Katlin Goins SERVIN/L Progressing 01/20/24 0945 Katlin Goins, SERVIN/L Progressing 01/19/24 1531 Nano Maher, SERVIN/L Progressing Problem: Functional Mobility Dates: Start: 01/19/24 Disciplines: OT Goal: Patient will perform functional mobility with Modified [place] Dates: Start: 01/19/24 Expected End: 02/09/24 Description: [...] Ludy Vogt, SERVIN/L Progressing 01/20/24 1610 Katlin Buster, SERVIN/L Progressing 01/20/24 [...] Progressing 01/21/24 1053 Ludy Vogt SERVIN/L Progressing 01/19/24 1531 CHARU HernandezA/L Progressing Problem: Transfers Dates: Start: 01/19/24 Disciplines: OT Goal: Patient will perform transfers with Modified [place] Dates: Start: 01/19/24 Expected End: 02/09/24 Description: [...] Closed fracture of right hip, initial encounter ([facility]) Active Problems: Closed displaced intertrochanteric fracture of right femur ([facility]) Associated attestation - Ludy Ireland OTR/L - [...] Description: INTERVENTIONS: 1. Encourage patient or legal auto claim representative to report early pain and ask [...] per policy 9. Teach patient or legal auto claim representative interventions for comforting Outcome: Progressing Note: [...] at the bedside 7. Instruct patient/ patient auto claim representative about use of safety devices 8. Include patient/ patient auto claim representative in decisions related to safety Outcome: [...] hygiene technique 7. Identify and instruct patient/patient auto claim representative in use of appropriate isolation precautionsfor identified infection/symptoms 8. Provide and discuss with patient/patient auto claim representative on educational MDRO sheet 9. Encourage and monitor nutritional status daily and consult clinical appeals specialist if indicated 10. Implement neutropenic guidelines as needed 11. Review exposure to history of communicable disease and recent travel history on admission 12. Encourage annual influenza vaccine 13. Encourage pneumonia vaccine Outcome: Progressing Problem: Knowledge Deficit Goal: Patient/patient auto claim representative demonstrates understanding of disease process, treatment [...] discharge planning process 5. Communicate referral to clinical trial educator as appropriate 6. Communicate referral to clinical appeals specialist as appropriate 7. Collaborate with case management/long term care social worker for discharge needs Outcome: Progressing Problem: Moderate - High Risk Fall Score Description: Arredondo Fall Score of =/> 25 or indicated by [facility] Assessment Goal: Patient should be free from fall Description: Interventions: 1. [place] to environment 2. Hourly rounds addressing the [...] non-skid footwear 11. Teach patient and patient auto claim representative to maintain environment for safety and [...] (cane, walker) within reach 19. Request patient auto claim representative bring adaptive equipment/mobility aids from home or obtain and provide as needed 20. Consult pharmacy regarding effects of med's affecting mobility, cognition, and alternatives 21. Obtain physician order for PT if risk factors associated with mobility are present 22. Obtain physician order for OT as appropriate 23. Utilize diversional activities 24. Educate patient and patient auto claim representative how to maintain a safe environment during visitationtimes (notify nurse prior to leaving bedside) 25. Consider appropriateness of medical or non-medical collector 26. Set up voiding schedule as appropriate (every 2 hours) Outcome: Progressing Note: Evaluation of progress towards goal: Fall precautions in place including bed locked and in lowest position, call light within reach and non skid socks on. Patient calls out appropriately for help. Hourly rounding in place. * PT/OT/FIELD IDENTIFICATION SPECIALIST - Shahrzad Garcias PTA - 01/21/2024 3:32 [...] RW Weight Bearing Status: WBAT Rt LE Telemetry/Horse Race Starter: No Oxygen Used: room air Other: fall [...] Garcias PTA Progressing 01/20/24 1036 Shahrzad Garcias, CLASSIFIED ADVERTISING CLERK Progressing 01/19/24 1721 Shahrzad Garcias PTA Progressing Goal Note filed on 01/21/24 174 by Shahrzad Garcias PTA Evaluation of progress towards goal: Problem: Bed Mobility Dates: Start: 01/19/24 Disciplines: PT Goal: Patient will perform bed mobility with Minimum Assist Dates: Start: 01/19/24 Expected End: 02/02/24 Description: Goal Description: Disciplines: PT Outcomes Date/Time User Outcome 01/21/24 1741 Shahrzad Garcias, CLASSIFIED ADVERTISING CLERK Progressing 01/21/24 1309 Shahrzad Garcias, CLASSIFIED ADVERTISING CLERK Progressing 01/20/24 1607 Shahrzad Garcias, CLASSIFIED ADVERTISING CLERK Progressing 01/20/24 1036 Shahrzad Garcias, CLASSIFIED ADVERTISING CLERK Progressing 01/19/24 1721 Shahrzad Garcias, SHERYL Progressing Goal Note filed on 01/21/24 174 by Shahrzad Garcias PTA Evaluation of progress towards goal: Problem: Gait Dates: Start: 01/19/24 Disciplines: PT Goal: Patient will perform gait with Contact Guard Dates: Start: 01/19/24 Expected End: 02/02/24 Description: With_rw___,__150__feet Goal Description: Disciplines: PT Outcomes Date/Time User Outcome 01/21/24 1741 Shahrzad Garcias, CLASSIFIED ADVERTISING CLERK Progressing 01/21/24 1309 Shahrzad Garcias, CLASSIFIED ADVERTISING CLERK Progressing 01/20/24 1607 Shahrzad Garcias, CLASSIFIED ADVERTISING CLERK Progressing 01/20/24 1036 Shahrzad Garcias, CLASSIFIED ADVERTISING CLERK Progressing 01/19/24 1721 Shahrzad Garcias PTA Progressing Goal Note filed on 01/21/24 174 by Shahrzad Garcias PTA Evaluation of progress towards goal: Problem: Standing Balance Dates: Start: 01/19/24 Disciplines: PT Goal: Improve balance to good Dates: Start: 01/19/24 Expected End: 02/02/24 Description: Static Dynamic- good (-) with support of rw Disciplines: PT Outcomes Date/Time User Outcome 01/21/24 1741 Shahrzad Garcias CLASSIFIED ADVERTISING CLERK Progressing 01/21/24 1309 Shahrzad Garcias, CLASSIFIED ADVERTISING CLERK Not Progressing 01/20/24 1036 Shahrzad Garcias, CLASSIFIED ADVERTISING CLERK Progressing 01/19/24 1721 Shahrzad Garcias PTA Progressing Goal Note filed on 01/21/24 174 by Shahrzad Garcias PTA Evaluation of progress towards goal: Problem: Strength Dates: Start: 01/19/24 Disciplines: PT Goal: Improve strength Dates: Start: 01/19/24 Expected End: 02/02/24 Description: Of extremity/ location:Complete 20 reps bilat UE/LE ex's To facilitate: Disciplines: PT Outcomes Date/Time User Outcome 01/21/24 174 Shahrzad Garcias CLASSIFIED ADVERTISING CLERK Progressing 01/21/24 1309 Shahrzad Garcias, CLASSIFIED ADVERTISING CLERK Progressing 01/20/24 1607 Shahrzad Garcias, CLASSIFIED ADVERTISING CLERK Progressing 01/20/24 1036 Shahrzad Garcias, CLASSIFIED ADVERTISING CLERK Progressing 01/19/24 1721 Shahrzad Garcias PTA Progressing Goal Note filed on 01/21/24 174 by Shahrzad Garcias PTA Evaluation of progress towards goal: Problem: Transfers Dates: Start: 01/19/24 Disciplines: PT Goal: Patient will perform transfers with Contact Guard Dates: Start: 01/19/24 Expected End: 02/02/24 Description: Goal Description: Disciplines: PT Outcomes Date/Time User Outcome 01/21/24 174 Shahrzad Garcias CLASSIFIED ADVERTISING CLERK Progressing 01/21/24 1309 Shahrzad Garcias, CLASSIFIED ADVERTISING CLERK Not Progressing 01/20/24 1607 Shahrzad Garcias, CLASSIFIED ADVERTISING CLERK Progressing 01/20/24 1036 Shahrzad Garcias, CLASSIFIED ADVERTISING CLERK Progressing 01/19/24 1721 Shahrzad Garcias PTA Progressing Goal Note filed on 01/21/24 174 by Shahrzad Garcias PTA Evaluation of progress towards goal: Physical Therapy Care Plan (Resolved) There are no resolved problems. Principal Problem: Closed fracture of right hip, initial encounter ([facility]) Active Problems: Closed displaced intertrochanteric fracture of right femur ([facility]) Associated attestation - Brady Jauregui PT - 01/22/2024 4:19 PM EDT I have reviewed and agree with this note and education documentation for this visit. * PT/OT/FIELD IDENTIFICATION SPECIALIST - NALLELY Grey - 01/21/2024 11:13 AM [...] pole Weight Bearing Status: WBAT Rt LE Telemetry/Horse Race Starter: No Oxygen Used: room air Other: fall [...] pt utilizing looped gait belt as leg software test technician for RLE to advance toward EOB. Pt [...] OT Outcomes Date/Time User Outcome 01/21/24 1053 CHARU GreyA/Lanie Progressing 01/20/24 1610 CHARU MenesesA/Lanie Progressing 01/20/24 0945 Katlin Goins SERVIN/Lanie Progressing 01/19/24 1531 CHARU HernandezA/Lanie Progressing Problem: Bed Mobility Dates: Start: 01/19/24 Disciplines: OT Goal: Patient will perform bed mobility with Modified [place] Dates: Start: 01/19/24 Expected End: 02/09/24 Description: Goal Description: Disciplines: OT Outcomes Date/Time User Outcome 01/21/24 1053 CHARU GreyA/Lanie Progressing 01/20/24 1610 MALATHI Meneses/L Progressing 01/20/24 0945 Katlin Goins, SERVIN/L Progressing 01/19/24 1531 Nano Maher SERVIN/L Progressing Problem: Functional Mobility Dates: Start: 01/19/24 Disciplines: OT Goal: Patient will perform functional mobility with Modified [place] Dates: Start: 01/19/24 Expected End: 02/09/24 Description: Goal Description: Disciplines: OT Outcomes Date/Time User Outcome 01/21/24 1053 Ludy Vogt, SERVIN/L Progressing 01/20/24 1610 Katlin Goins, SERVIN/L Progressing 01/20/24 0945 Katlin Goins, SERVIN/L Progressing 01/19/24 1531 CHARU HernandezA/L Progressing Problem: Other (Customize) Dates: Start: 01/19/24 [...] Katlin Goins, SERVIN/L Progressing 01/20/24 0945 Katlin Butser, SERVIN/L Progressing 01/19/24 1531 Nano Maher SERVIN/L Progressing Problem: Standing Balance Dates: Start: 01/19/24 Disciplines: OT Goal: Improve balance to good Dates: Start: 01/19/24 Expected End: 02/09/24 Description: Static Dynamic Disciplines: OT Outcomes Date/Time User Outcome 01/21/24 1053 Ludy Vogt SERVIN/L Progressing 01/20/24 1610 Katlin Goins, SERVIN/L Progressing 01/20/24 0945 Katlin Buster, SERVIN/L Progressing 01/19/24 1531 CHARU HernandezA/L Progressing Problem: Strength Dates: Start: 01/19/24 Disciplines: OT Goal: Improve strength Dates: Start: 01/19/24 Expected End: 02/09/24 Description: Of extremity/ location: Tolerate bilat UE exercises to increase strength and endurancefor self care tasks. To facilitate: Disciplines: OT Outcomes Date/Time User Outcome 01/21/24 1053 CHARU GreyA/Lanie Progressing 01/19/24 1531 CHARU HernandezA/L Progressing Problem: Transfers Dates: Start: 01/19/24 Disciplines: OT Goal: Patient will perform transfers with Modified [place] Dates: Start: 01/19/24 Expected End: 02/09/24 Description: Goal Description: Disciplines: OT Outcomes Date/Time User Outcome 01/21/24 1053 Ludy Vogt SERVIN/L Not Progressing 01/20/24 1610 Katlin Goins SERVIN/L Progressing 01/20/24 0945 Katlin Goins SERVIN/L Progressing 01/19/24 1531 Nano Maher, SERVIN/L Progressing Occupational Therapy Care Plan (Resolved) There are no resolved problems. Principal Problem: Closed fracture of right hip, initial encounter ([facility]) Active Problems: Closed displaced intertrochanteric fracture of right femur ([facility]) Associated attestation - Virgil Nunes OTR/L - 01/21/2024 12:48 PM EDT I have reviewed and agree with this note and education documentation for this visit. * PT/OT/FIELD IDENTIFICATION SPECIALIST - Shahrzad Garcias PTA - 01/21/2024 9:49 [...] pole Weight Bearing Status: WBAT Rt LE Telemetry/Horse Race Starter: No Oxygen Used: room air Other: fall [...] railing required to complete. Use of limb software test technician for RLE support OOB. Increased time and [...] tasks. Much encouragement, education, and reassurance provided thorughout tx sesison. Frequent rest breaks required. Pt tends to [...] Date/Time User Outcome 01/21/24 1309 Shahrzad Garcias, CLASSIFIED ADVERTISING CLERK Progressing 01/20/24 1607 Shahrzad Garcias, CLASSIFIED ADVERTISING CLERK Progressing 01/20/24 1036 Shahrzad Garcias, CLASSIFIED ADVERTISING CLERK Progressing 01/19/24 1721 Shahrzad Garcias PTA Progressing Goal Note filed on 01/21/24 1309 by Shahrzad Garcias PTA Evaluation of progress towards goal: Problem: Bed Mobility Dates: Start: 01/19/24 Disciplines: PT Goal: Patient will perform bed mobility with Minimum Assist Dates: Start: 01/19/24 Expected End: 02/02/24 Description: Goal Description: Disciplines: PT Outcomes Date/Time User Outcome 01/21/24 1309 Shahrzad Garcias, CLASSIFIED ADVERTISING CLERK Progressing 01/20/24 1607 Shahrzad Garcias, CLASSIFIED ADVERTISING CLERK Progressing 01/20/24 1036 Shahrzad Garcias, CLASSIFIED ADVERTISING CLERK Progressing 01/19/24 1721 Shahrzad Garcias PTA Progressing Goal Note filed on 01/21/24 1309 by Shahrzad Garcias PTA Evaluation of progress towards goal: Problem: Gait Dates: Start: 01/19/24 Disciplines: PT Goal: Patient will perform gait with Contact Guard Dates: Start: 01/19/24 Expected End: 02/02/24 Description: With_rw___,__150__feet Goal Description: Disciplines: PT Outcomes Date/Time User Outcome 01/21/24 1309 Shahrzad Garcias, CLASSIFIED ADVERTISING CLERK Progressing 01/20/24 1607 Shahrzad Garcias, CLASSIFIED ADVERTISING CLERK Progressing 01/20/24 1036 Shahrzad Garcias, CLASSIFIED ADVERTISING CLERK Progressing 01/19/24 1721 Shahrzad Garcias PTA Progressing [...] Closed fracture of right hip, initial encounter ([facility]) Active Problems: Closed displaced intertrochanteric fracture of right femur ([facility]) Associated attestation - Carlos Brar PT - [...] Description: INTERVENTIONS: 1. Encourage patient or legal auto claim representative to report early pain and ask [...] per policy 9. Teach patient or legal auto claim representative interventions for comforting Outcome: Not Progressing [...] it will have on his body. * PT/OT/FIELD IDENTIFICATION SPECIALIST - NALLELY Meneses - 01/20/2024 4:21 PM [...] environment. Pt utilized gait belt as leg software test technician with cues for tech to A RLE [...] (-) Other: Pt completed standing marches with CLASSIFIED ADVERTISING CLERK with heavy BUE support on RW. Pt [...] 0945 Katlin Goins SERVIN/L Progressing 01/19/24 1531 NALLELY Hernandez Progressing Problem: Bed Mobility Dates: Start: 01/19/24 Disciplines: OT Goal: Patient will perform bed mobility with Modified [place] Dates: Start: 01/19/24 Expected End: 02/09/24 Description: Goal Description: Disciplines: OT Outcomes Date/Time User Outcome 01/20/24 1610 Katlin Goins, SERVIN/L Progressing 01/20/24 0945 Katlin Goins SERVIN/L Progressing 01/19/24 1531 CHARU HernandezA/Lanie Progressing Problem: Functional Mobility Dates: Start: 01/19/24 Disciplines: OT Goal: Patient will perform functional mobility with Modified [place] Dates: Start: 01/19/24 Expected End: 02/09/24 Description: [...] 0945 Katlin Buster, SERVIN/L Progressing 01/19/24 1531 CHARU HernandezA/Lanie Progressing [...] Outcomes Date/Time User Outcome 01/19/24 1531 MALATHI Hernandez/L Progressing Problem: Transfers Dates: Start: 01/19/24 Disciplines: OT Goal: Patient will perform transfers with Modified [place] Dates: Start: 01/19/24 Expected End: 02/09/24 Description: Goal Description: Disciplines: OT Outcomes Date/Time User Outcome 01/20/24 1610 MALATHI Meneses/Lanie Progressing 01/20/24 0945 CHARU MenesesA/L Progressing 01/19/24 1531 CHARU HernandezA/Lanie Progressing Occupational Therapy Care Plan (Resolved) There are no resolved problems. Principal Problem: Closed fracture of right hip, initial encounter ([facility]) Active Problems: Closed displaced intertrochanteric fracture of right femur ([facility]) Associated attestation - Virgil Nunes OTR/L - 01/21/2024 12:48 PM EDT I have reviewed and agree with this note and education documentation for this visit. * PT/OT/FIELD IDENTIFICATION SPECIALIST - Shahrzad Garcias PTA - 01/20/2024 3:15 [...] 6 Clicks: Basic Mobility Raw Score: 11 [facility] G Code Modifier: CL Therapy Plan [...] bed railing. Education provided on useof limb software test technician to assist RLE OOB. Pt able to [...] Closed fracture of right hip, initial encounter ([facility]) Active Problems: Closed displaced intertrochanteric fracture of right femur ([facility]) Associated attestation - Carlos Brar PT - 01/21/2024 3:57 PM EDT I have reviewed and agree with this note and education documentation for this visit. * PT/OT/FIELD IDENTIFICATION SPECIALIST - NALLELY Meneses - 01/20/2024 10:11 AM [...] Utilized gait belt to act as leg software test technician; instructed pt to lift R leg to [...] Patient will perform bed mobility with Modified [place] Dates: Start: 01/19/24 Expected End: 02/09/24 Description: Goal Description: Disciplines: OT Outcomes Date/Time User Outcome 01/20/24 09Elpidio Goins SERVIN/L Progressing 01/19/24 1531 Nano Maher SERVIN/L Progressing Problem: Functional Mobility Dates: Start: 01/19/24 Disciplines: OT Goal: Patient will perform functional mobility with Modified [place] Dates: Start: 01/19/24 Expected End: 02/09/24 Description: Goal Description: Disciplines: OT Outcomes Date/Time User Outcome 01/20/24 09Elpidio Goins, SERVIN/L Progressing 01/19/24 1531 Nano Maher [...] 01/20/24 09Elpidio Goins, SERVIN/L Progressing 01/19/24 1531 Nano Maher [...] Goal: Patient will perform transfers with Modified [place] Dates: Start: 01/19/24 Expected End: 02/09/24 Description: Goal Description: Disciplines: OT Outcomes Date/Time User Outcome 01/20/24 0945 NALLELY Meneses Progressing 01/19/24 1531 Nano MALATHI Maher/Lanie Progressing Occupational Therapy Care Plan (Resolved) There are no resolved problems. Principal Problem: Closed fracture of right hip, initial encounter ([facility]) Active Problems: Closed displaced intertrochanteric fracture of right femur ([facility]) Associated attestation - Virgil Nunes OTR/L - 01/20/2024 1:17 PM EDT I have reviewed and agree with this note and education documentation for this visit. * PT/OT/FIELD IDENTIFICATION SPECIALIST - Shahrzad Garcias PTA - 01/20/2024 8:17 [...] 6 Clicks: Basic Mobility Raw Score: 11 [facility] G Code Modifier: CL Therapy Plan [...] EOB. Use of gait belt as limb software test technician for RLE with fair- poor carryover. Pt displayed decreased ability to scoot hips to EOB d/t pain in R hip and required assistance from database report writer to complete. Pt denied dizziness with [...] handles to complete. First attempt was unsuccessful. Nuclear Spectroscopist educated pt on use of momentum and [...] 01/20/24 1036 Shahrzad Garcias PTA Progressing 01/19/24 0981 Shahrzad Garcias PTA Progressing Goal Note filed [...] Closed fracture of right hip, initial encounter ([facility]) Active Problems: Closed displaced intertrochanteric fracture of right femur ([facility]) Associated attestation - Brady Jauregui PT - 01/20/2024 3:30 PM EDT I have reviewed and agree with this note and education documentation for this visit. * Discharge Planning Note - Jackie Caal - 01/19/2024 3:48 PM EDT DISCHARGE PLANNING NOTE Referral to [address]- [place] (P# ; F# ); [place] (P#[phone] ; F# [phone]) and [facility] ([place]- P# ; F# ) ([place], [place] P# ; F#) * PT/OT/FIELD IDENTIFICATION SPECIALIST - NALLELY Hernandez - 01/19/2024 3:32 PM [...] Outcome 01/19/24 153Yohana NALLELY Hernandez Progressing Problem: Bed Mobility Dates: Start: 01/19/24 Disciplines: OT Goal: Patient will perform bed mobility with Modified [place] Dates: Start: 01/19/24 Expected End: 02/09/24 Description: Goal Description: Disciplines: OT Outcomes Date/Time User Outcome 01/19/24 153Yohana NALLELY Hernandez Progressing Problem: Functional Mobility Dates: Start: 01/19/24 Disciplines: OT Goal: Patient will perform functional mobility with Modified [place] Dates: Start: 01/19/24 Expected End: 02/09/24 Description: Goal Description: Disciplines: OT Outcomes Date/Time User Outcome 01/19/24 153Yohana NALLELY Hernandez Progressing Problem: Other (Customize) Dates: Start: 01/19/24 Disciplines: OT Goal: Improve Dates: Start: 01/19/24 Expected End: 02/09/24 Description: Goal Description: Complete ADLs [place] with AE/DME Disciplines: OT Problem: Sitting Balance Dates: Start: 01/19/24 Disciplines: OT Goal: Improve balance to good Dates: Start: 01/19/24 Expected End: 02/09/24 Description: Static Dynamic Disciplines: OT Outcomes Date/Time User Outcome 01/19/24 1531 Nano Maher SERVIN/Lanie Progressing Problem: Standing Balance Dates: Start: 01/19/24 Disciplines: OT Goal: Improve balance to good Dates: Start: 01/19/24 Expected End: 02/09/24 Description: Static Dynamic Disciplines: OT Outcomes Date/Time User Outcome 01/19/24 1531 Nano MaherMALATHI/Lanie Progressing Problem: Strength Dates: Start: 01/19/24 Disciplines: OT Goal: Improve strength Dates: Start: 01/19/24 Expected End: 02/09/24 Description: Of extremity/ location: Tolerate bilat UE exercises to increase strength and endurancefor self care tasks. To facilitate: Disciplines: OT Outcomes Date/Time User Outcome 01/19/24 1531 NanoMALATHI Banks/Lanie Progressing Problem: Transfers Dates: Start: 01/19/24 Disciplines: OT Goal: Patient will perform transfers with Modified [place] Dates: Start: 01/19/24 Expected End: 02/09/24 Description: Goal Description: Disciplines: OT Outcomes Date/Time User Outcome 01/19/24 153Yohana Mcgill MALATHI Maher/Lanie Progressing Occupational Therapy Care Plan (Resolved) There are no resolved problems. Principal Problem: Closed fracture of right hip, initial encounter ([facility]) Active Problems: Closed displaced intertrochanteric fracture of right femur ([facility]) Associated attestation - Virgil Nunes OTR/L - [...] home care arranged. Referral's were placed to [address] (1st choice) & [facility], await acceptance. - JEWEL Crenshaw 01/19/24 3:08 PM * PT/OT/FIELD IDENTIFICATION SPECIALIST - Shahrzad Garcias PTA - 01/19/2024 1:55 [...] transition. Pt had difficutly following direction/cueing from database report writer. Visual demo and tactile cueing provided [...] Closed fracture of right hip, initial encounter ([facility]) Active Problems: Closed displaced intertrochanteric fracture of right femur ([facility]) Associated attestation - Brady Jauregui PT - 01/20/2024 3:30 PM EDT I have reviewed and agree with this note and education documentation for this visit. * PT/OT/FIELD IDENTIFICATION SPECIALIST - Lindsay Infante, PT - 01/19/2024 1:52 PM EDT Physical Therapy Evaluation Discharge Recommendations PT Recommendations: Inpatient Rehab Inpatient Rehab Criteria: All inpatient rehab criteria expected to be met Therapy Plan Need for skilled Physical Therapy to address deficits in functional mobility due to a status decline resulting from hospitalization. Pt to [facility] via EMS with Rt LE pain. Pt [...] from lisinopril Chronic pain disorder Colon cancer ([facility]) COPD (chronic obstructive pulmonary disease) ([facility]) Depression Diabetes mellitus type 2, controlled ([facility]) Fibromyalgia, primary Fracture of right hip, closed, initial encounter ([facility]) 01/17/2024 GERD (gastroesophageal reflux disease) Hyperlipidemia Hypertension Insulin-treated type 2 diabetes mellitus ([facility]) Joint pain Kidney stones Liver disease Low back pain Neck pain Obesity Osteoarthritis Visual impairment Past Surgical History: Procedure Laterality Date BACK SURGERY COLON SURGERY resection, 2018, [facility] DAVINCI REPAIR HERNIA VENTRAL N/A 10/27/2021 Performed by Ridge Cedillo MD at [facility] DENTAL SURGERY pt had all teeth removed HERNIA REPAIR x's 2 INSERTION INTRAMEDULLARY NAIL FEMUR-TFNA HIP FX Right 01/18/2024 Performed by Ang Figueroa MD at [facility] ORTHOPEDIC SURGERY 2008 foot, infected foot 6 [...] 6 Clicks: Basic Mobility Raw Score: 11 [facility] G Code Modifier: CL Recommended Consults: PM&R [...] Closed fracture of right hip, initial encounter ([facility]) Active Problems: Closed displaced intertrochanteric fracture of right femur ([facility]) * PT/OT/FIELD IDENTIFICATION SPECIALIST - Nohemy Han, OTR/L - 01/19/2024 1:03 PM EDT Occupational [...] status decline resulting from hospitalization. Pt to [facility] via EMS with Rt LE pain. Pt [...] from lisinopril Chronic pain disorder Colon cancer ([facility]) COPD (chronic obstructive pulmonary disease) ([facility]) Depression Diabetes mellitus type 2, controlled ([facility]) Fibromyalgia, primary Fracture of right hip, closed, initial encounter ([facility]) 01/17/2024 GERD (gastroesophageal reflux disease) Hyperlipidemia Hypertension Insulin-treated type 2 diabetes mellitus ([facility]) Joint pain Kidney stones Liver disease Low back pain Neck pain Obesity Osteoarthritis Visual impairment Past Surgical History: Procedure Laterality Date BACK SURGERY COLON SURGERY resection, 2018, [facility] DAVINCI REPAIR HERNIA VENTRAL N/A 10/27/2021 Performed by Ridge Cedillo MD at [facility] D[facility]ERY pt had all teeth removed HERNIA REPAIR x's 2 INSERTION INTRAMEDULLARY NAIL FEMUR-TFNA HIP FX Right 01/18/2024 Performed by Ang Figueroa MD at [facility] OR[facility]OP[facility] SURGERY 2008 foot, infected foot Chief Complaint Patient presents [...] shower chair) Other : No AE/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 shoulder and elbow 4-/5. Lamp Decorator 3+/5) Activity Tolerance Endurance: Tolerates >30 minutes [...] Patient will perform bed mobility with Modified [place] Dates: Start: 01/19/24 Expected End: 02/09/24 Description: Goal Description: Disciplines: OT Problem: Functional Mobility Dates: Start: 01/19/24 Disciplines: OT Goal: Patient will perform functional mobility with Modified [place] Dates: Start: 01/19/24 Expected End: 02/09/24 Description: [...] Goal: Patient will perform transfers with Modified [place] Dates: Start: 01/19/24 Expected End: 02/09/24 Description: Goal Description: Disciplines: OT Occupational Therapy Care Plan (Resolved) There are no resolved problems. Principal Problem: Closed fracture of right hip, initial encounter ([facility]) Active Problems: Closed displaced intertrochanteric fracture of right femur ([facility]) * Plan of Care - Lian Silva RN - 01/19/2024 12:34 PM EDT Problem: Pain Goal: Patient goal is pain score less than 4, able to rest, and participant in treatment plan as appropriate Description: INTERVENTIONS: 1. Encourage patient or legal auto claim representative to report early pain and ask [...] per policy 9. Teach patient or legal auto claim representative interventions for comforting Outcome: Progressing Note: [...] at the bedside 7. Instruct patient/ patient auto claim representative about use of safety devices 8. Include patient/ patient auto claim representative in decisions related to safety Outcome: [...] be free from fall Description: Interventions: 1. [place] to environment 2. Hourly rounds addressing the [...] non-skid footwear 11. Teach patient and patient auto claim representative to maintain environment for safety and [...] (cane, walker) within reach 19. Request patient auto claim representative bring adaptive equipment/mobility aids from home or obtain and provide as needed 20. Consult pharmacy regarding effects of med's affecting mobility, cognition, and alternatives 21. Obtain physician order for PT if risk factors associated with mobility are present 22. Obtain physician order for OT as appropriate 23. Utilize diversional activities 24. Educate patient and patient auto claim representative how to maintain a safe environment during visitationtimes (notify nurse prior to leaving bedside) 25. Consider appropriateness of medical or non-medical collector 26. Set up voiding schedule as appropriate [...] hygiene technique 7. Identify and instruct patient/patient auto claim representative in use of appropriate isolation precautionsfor identified infection/symptoms 8. Provide and discuss with patient/patient auto claim representative on educational MDRO sheet 9. Encourage and monitor nutritional status daily and consult clinical appeals specialist if indicated 10. Implement neutropenic guidelines as [...] be free from fall Description: Interventions: 1. [place] to environment 2. Hourly rounds addressing the [...] non-skid footwear 11. Teach patient and patient auto claim representative to maintain environment for safety and [...] (cane, walker) within reach 19. Request patient auto claim representative bring adaptive equipment/mobility aids from home or obtain and provide as needed 20. Consult pharmacy regarding effects of med's affecting mobility, cognition, and alternatives 21. Obtain physician order for PT if risk factors associated with mobility are present 22. Obtain physician order for OT as appropriate 23. Utilize diversional activities 24. Educate patient and patient auto claim representative how to maintain a safe environment during visitationtimes (notify nurse prior to leaving bedside) 25. Consider appropriateness of medical or non-medical collector 26. Set up voiding schedule as appropriate [...] 1. IM nail right intertrochanteric hip fracture.- [id number] SURGEON: Ang Figueroa MD PHOTOGRAPHER: none ANESTHESIA: General. MEDICATIONS: ancef IV preop. [...] , damage to normal structure, PE, DVT, [place], stroke, nonunion, malunion, chronicpain, arthrosis, arthritis, limited [...] oriented during assessment. Pt was transferred to [facility] from [facility] where pt presented with leg and [...] Yes List Provided: Yes CarePort List Provided: [facility] Facility Initial DC Assessment Completed: Yes Patient [...] Description: INTERVENTIONS: 1. Encourage patient or legal auto claim representative to report early pain and ask [...] per policy 9. Teach patient or legal auto claim representative interventions for comforting Outcome: Progressing Note: [...] at the bedside 7. Instruct patient/ patient auto claim representative about use of safety devices 8. Include patient/ patient auto claim representative in decisions related to safety Outcome: [...] hygiene technique 7. Identify and instruct patient/patient auto claim representative in use of appropriate isolation precautionsfor identified infection/symptoms 8. Provide and discuss with patient/patient auto claim representative on educational MDRO sheet 9. Encourage and monitor nutritional status daily and consult clinical appeals specialist if indicated 10. Implement neutropenic guidelines as needed 11. Review exposure to history of communicable disease and recent travel history on admission 12. Encourage annual influenza vaccine 13. Encourage pneumonia vaccine Outcome: Progressing Note: Evaluation of progress towards goal: Skin integrity remains in stable condition; remains w/o ss of infection, fever, pain, or increased discomfort. Problem: Knowledge Deficit Goal: Patient/patient auto claim representative demonstrates understanding of disease process, treatment [...] discharge planning process 5. Communicate referral to clinical trial educator as appropriate 6. Communicate referral to clinical appeals specialist as appropriate 7. Collaborate with case management/long term care social worker for discharge needs Outcome: Progressing Note: Evaluation of progress towards goal: Discharge planning in process; will continue to monitor for discharge needs. Problem: Moderate - High Risk Fall Score Description: Arredondo Fall Score of =/> 25 or indicated by [facility] Assessment Goal: Patient should be free from fall Description: Interventions: 1. [place] to environment 2. Hourly rounds addressing the [...] non-skid footwear 11. Teach patient and patient auto claim representative to maintain environment for safety and [...] (cane, walker) within reach 19. Request patient auto claim representative bring adaptive equipment/mobility aids from home or obtain and provide as needed 20. Consult pharmacy regarding effects of med's affecting mobility, cognition, and alternatives 21. Obtain physician order for PT if risk factors associated with mobility are present 22. Obtain physician order for OT as appropriate 23. Utilize diversional activities 24. Educate patient and patient auto claim representative how to maintain a safe environment during visitationtimes (notify nurse prior to leaving bedside) 25. Consider appropriateness of medical or non-medical collector 26. Set up voiding schedule as appropriate (every 2 hours) Outcome: Progressing Note: Evaluation of progress towards goal: Call light within reach. Remains free of fall or injury.Environment free of clutter. * PT/OT/FIELD IDENTIFICATION SPECIALIST - ALICIA hCavira - 01/18/2024 7:39 AM EDT Occupational Therapy CANCEL - Deferred Orders received for OT evaluation. Pt scheduled for hip fracture repair this date. Will check back post op * Plan of Care - Carin Contreras RN - 01/18/2024 5:30 AM EDT Problem: Moderate - High Risk Fall Score Description: Arredondo Fall Score of =/> 25 or indicated by [facility] Assessment Goal: Patient should be free from fall Description: Interventions: 1. [place] to environment 2. Hourly rounds addressing the [...] non-skid footwear 11. Teach patient and patient auto claim representative to maintain environment for safety and [...] (cane, walker) within reach 19. Request patient auto claim representative bring adaptive equipment/mobility aids from home or obtain and provide as needed 20. Consult pharmacy regarding effects of med's affecting mobility, cognition, and alternatives 21. Obtain physician order for PT if risk factors associated with mobility are present 22. Obtain physician order for OT as appropriate 23. Utilize diversional activities 24. Educate patient and patient auto claim representative how to maintain a safe environment during visitationtimes (notify nurse prior to leaving bedside) 25. Consider appropriateness of medical or non-medical collector 26. Set up voiding schedule as appropriate (every 2 hours) Outcome: Progressing Note: Evaluation of progress towards goal: Patient remains fall free at this time. Fall precautionsin place. * Situational Awareness - Jeff Martin MD - 01/17/2024 10:57 AM EDT ED called Report to [facility] for Admission Pt transferred to for Ortho, morbid obesity, fall with hip fracture requiring OR, plan for tomorrow. Background HLD, IDDM2. No h/o CAD. Reported no other hemodynamic or acute medical concerns at this time. JEFF MARTIN MD [facility]* Discharge Planning Note - Mendoza Pritchett - 01/22/2024 4:03 PM EDT DISCHARGE PLANNING NOTE CRF sent to [facility] Progress note* Discharge Planning Note - JEWEL Crenshaw - 01/22/2024 3:40 PM EDT Images from the original note were not included. DISCHARGE PLANNING NOTE DC plan will be IPR: [facility] has accepted pt. Pt is agreeable to [facility]. No auth needed. Pt will discharge today. Transport arranged for 5pm. Patient, RN, facility all aware. CRF sent. W/C tx cert in dc packet Services Requested: Services Requested Discharge Disposition: Acute rehab Acute Rehab Name: [facility] Acute [facility]hab Does the patient need discharge transportation arranged?: Yes Patient choice offered: Yes List Provided: Yes CarePort List Provided: [facility] Facility Initial DC Assessment Completed: Yes Patient Goals: Goals: Goals (pt-stated) Evaluation of progress towards goal: possible rehab placement vs home pending progress, recommendations and pt decision - JEWEL Crenshaw 01/22/24 3:44 PM [facility] Hospital course Narrative* Valentinoherreraveronica Diallo, DO - 01/22/2024 3:21 PM EDT Images from the original note were not included. DISCHARGE NOTE Demographics: Patient Name: Ruth Smith : 1970 DATE OF ADMISSION: 01/17/2024 DATE OF DISCHARGE: 01/22/2024 DISCHARGE DIAGNOSES: Principal Problem: Closed fracture of right hip, initial encounter ([facility]) Active Problems: Closed displaced intertrochanteric fracture of right femur ([facility]) CONSULTANTS: Consulting Providers Provider Service Specialty Anne [...] fall and right hip pain initially to [facility] and transferred to [facility]. Patient awake oriented x3 does not be [...] Pending Labs: DISCHARGE INSTRUCTIONS: Disposition: Discharge to [facility] Condition:Stable Activity: activity as tolerated Diet: Adult nutrition supplements Adult diet Regular Texture; Consistent Carb 210 grams (1800 kcal) Follow up: Jd Du PA-C [address] [place] [address] For most accurate medication list, please review [...] Your Medications These medications were sent to [id number] [id number] calcium citrate 200 mg (950 mg) tablet cholecalciferol (vitamin D3) 2,000 units tablet ergocalciferol 1,250 mcg (50,000 unit) capsule sennosides-docusate sodium 8.6-50 mg Information about where to get these medications is not yet available Ask your nurse or doctor about these medications enoxaparin 40 mg/0.4 mL syringe 45 minutes were spent on discharging this patient. 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 picker from , transport to [facility] They [facility] [id number] History of Present illness Narrative* Juliana Perales RN - 01/22/2024 2:22 PM EDT Initial Rehab Facility Preadmission Screening Sending facility: [facility] Room number: A724/01 Date of admission to hospital: 01/17/2024 PCP: Jd Du PA-C Primary insurance: Payor: MEDICARE / Plan: MEDICARE PART A & B / Product Type: *No Product type* / Policy #: [id number] - (Medicare) Secondary insurance: N/A Address: [address] [place] [address] [address] [place] [address] (home) : 1970 Age: 53 y.o. Race: White or [1] Emergency contact: Extended Emergency Contact Information Primary Emergency Contact: Yvonne Martinez Mobile Relation: Mother Preferred language: Citizen Of [place] Pilates Coordinator needed? No Marital status: Single [1] Rehab [...] Comorbidities/Medical issues requiring further interdisciplinary management at [facility]: Right Hip Fracture s/p IMN 01/17 [...] displaced intertrochanteric fracture of right femur (CMS-HCC) Closed fracture of right hip, initial encounter ([facility]) Past Medical History: Diagnosis Date Asthma Back pain Chronic cough from lisinopril Chronic pain disorder Colon cancer ([facility]) COPD (chronic obstructive pulmonary disease) ([facility]) Depression Diabetes mellitus type 2, controlled ([facility]) Fibromyalgia, primary Fracture of right hip, closed, initial encounter ([facility]) 01/17/2024 GERD (gastroesophageal reflux disease) Hyperlipidemia Hypertension Insulin-treated type 2 diabetes mellitus ([facility]) Joint pain Kidney stones Liver disease Low back pain Neck pain Obesity Osteoarthritis Visual impairment Past Surgical History: Procedure Laterality Date BACK SURGERY COLON SURGERY resection, 2018, [facility] DAVINCI REPAIR HERNIA VENTRAL N/A 10/27/2021 Performed by Ridge Cedillo MD at [facility] D[facility] pt had all teeth removed HERNIA REPAIR x's 2 INSERTION INTRAMEDULLARY NAIL FEMUR-TFNA HIP FX Right 01/18/2024 Performed by Ang Figueroa MD at [facility]GERY 2007 foot, infected foot Ongoing [...] tablet 1,000 mg 1,000 mg oral Q6H [facility] Stephen Hannah MD 1,000 mg at 01/22/24 [...] Vilma Beckwith PA-C 1 Units at 01/21/24 175 lidocaine (LIDODERM) 5 % 1 patch 1 [...] mg 550 mg oral Q12H SADA Abad Reedvi, DO 550 mg at 01/22/24 0836 sennosides-docusate [...] (01/22/24 1134) Clinical Progression: Gradually worsening (01/22/24 113) Effect of Pain on Daily Activities: comfort (01/21/24 0514) Patient's Stated Pain Goal: No pain (01/21/24 2220) Pain Intervention(s): Medication (See MAR) (01/22/24 1134) Response to Interventions: Pain unchanged, Quiet (01/22/24 0922) Wound Assessment: Skin: Skin Color: Pyote, Pale (01/22/24 1132) Skin Temp: Cool, Dry (01/22/24 0400) Skin Integrity: Bruising (01/22/24 1132) risk: turn and position every 2 hours, lotion to bk prominences, moisture barrier, and pressure relief every 20 minutes while up in chair Dialysis? No Language/Cognition: Citizen Of [place] [22] Hearing / Speech / Vision Hearing: [...] Precautions: Fall (01/22/24 1023) Cultural considerations: N/A Pilates Coordinator needed? No [2] BP 134/90 Pulse 90 [...] Incontinence: No (01/21/241599) Unmeasured Stool Occurrence: 2 (01/21/24 1600) Stool Amount: Large (01/21/24 1615) Last BM Date: 01/22/24 (01/22/24 113) Level of function prior to event/condition leading [...] and was able to exchange L sock. Nuclear Spectroscopist assisted with R foot. 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 Anne Ventura MD * Annmarie Marquez PA-C - 01/22/2024 1:22 PM EDT [...] from the original note were not included. [facility] 01/21/2024 Patient Name: [...] medicine rehab consultation for possible inpatient rehab campaign worker/early breastfeeding care specialist for discharge planning On chemical DVT prophylaxis with SQ Lovenox-discussed with ortho Continue with vitamin-D supplementation, 74556 units weekly x4 weeks Continue sliding scale [...] DIALLO DO 01/21/24 10:01 AM [facility] Medicine Please note that portions of this note were generated using voice recognition Personal MedSystems*AdoTube dictation software. Although every effort was made to ensure the accuracy of this automated visitor services representative, some errors in visitor services representative may have occurred. This should not affect the overall integrity of the document. * Anne Ventura MD - 01/21/2024 9:34 AM EDT Physical Medicine and Rehabilitation Daily Progress Note Today's Date and Time: 01/21/2024, 9:34 AM Subjective/Chief complaint: Closed fracture of right hip, initial encounter ([facility]) Principal Problem: Closed fracture of right hip, initial encounter ([facility]) Active Problems: Closed displaced intertrochanteric fracture of right femur (CMS-HCC) SUBJECTIVE Resting in bed, denies chest pains [...] No results found for: ALB , PROT @[facility]@ Lab Results Component Value Date CRP 1.1 [...] Closed displaced intertrochanteric fracture of right femur ([facility]) Closed fracture of right hip, initial encounter ([facility]) Recommendations/Plan: Continue PT, OT Min assist x2 [...] from the original note were not included. [facility] Hospitalists Progress Note 01/20/2024 Patient Name: [...] Lovenox-discussed with ortho Continue with vitamin-D supplementation, 42909 units weekly x4 weeks Continue sliding scale [...] DIALLO DO 01/20/24 11:05 AM [facility] Medicine Please note that portions of this note were generated using voice recognition M*Modal dictation software. Although every effort was made to ensure the accuracy of this automated visitor services representative, some errors in visitor services representative may have occurred. This should not affect [...] from the original note were not included. [facility] Hospitalists Progress Note 01/19/2024 Patient Name: [...] Lovenox-discussed with ortho Continue with vitamin-D supplementation, 72197 units weekly x4 weeks Continue sliding scale insulin/Accuchecks Continue other home medications the diet following reconciliation Social work for discharge planning DVT prophylaxis: SQ Lovenox Code status: Full code Discharge planning: Status post surgery on 01/18/2024. Await PT/OT Electronically signed by: ABAD DIALLO DO 01/19/24 10:33 AM [facility] Medicine Please note that portions of this note were generated using voice recognition Personal Med[employer]*AdoTube dictation software. Although every effort was made to ensure the accuracy of this automated visitor services representative, some errors in visitor services representative may have occurred. This should not affect [...] Padilla RPH - 01/18/2024 4:43 PM EDT [facility] Department of Pharmacy Pharmacist to Physician Communication The dose of cefazolin for surgical prophylaxis has been changed to 2 grams every 8 hours for 2 doses per the [facility] approved renal dosing guidelines, based on an estimated creatinine clearance is 134.8 mL/min (by C-G formula based on SCr of 0.7 mg/dL). Actual body weight <120kg. Thank you, Mara Padilla RP, PharmD Ext [phone] * Abad Diallo DO - 01/18/2024 10:50 AM EDT Images from the original note were not included. [facility] Hospitalists Progress Note 01/18/2024 Patient [...] once okay with ortho Start vitamin-D supplementation, 00939 units weekly x4 weeks Continue sliding scale insulin/Accuchecks Continue other home medications the diet following reconciliation DVT prophylaxis: SCDs. Start chemical DVT PPX once okay with ortho Code status: Full code Discharge planning: Pending clinical course. Surgery planned for today. Will need PT/OT evaluation thereafter Electronically signed by: ABAD DIALLO DO 01/18/24 10:50 AM [facility] Please note that portions of this note were generated using voice recognition M*AdoTube dictation software. Although every effort was made to ensure the accuracy of this automated visitor services representative, some errors in visitor services representative may have occurred. This should not affect the overall integrity of the document. [facility]* Discharge Planning Note - Logen Sammymerritt - 01/22/2024 2:06 PM EDT DISCHARGE PLANNING NOTE Referral sent to [facility], a division of [facility] P# [phone] [calling report];/[facility] (P# [calling report]; F# ) [facility]06-10-2024 Progress note* Discharge Planning Note - JEWEL Crenshaw - 01/22/2024 2:01 PM EDT DISCHARGE PLANNING NOTE SW informed that [facility] IP rehab does not currently have a bed available. GABRIEL discussed with pt and reviewed other IPR options. Pt is agreeable to [facility] rehab. Referral sent, await acceptance. - JEWEL Crenshaw 01/22/24 2:01 PM [facility]10[facility] Plan of care note* Plan of Care - Miranda Dudley RN - 01/22/2024 12:56 PM EDT Problem: Pain Goal: Patient goal is pain score less than 4, able to rest, and participant in treatment plan as appropriate Description: INTERVENTIONS: 1. Encourage patient or legal auto claim representative to report early pain and ask [...] per policy 9. Teach patient or legal auto claim representative interventions for comforting Outcome: Adequate for [...] at the bedside 7. Instruct patient/ patient auto claim representative about use of safety devices 8. Include patient/ patient auto claim representative in decisions related to safety Outcome: [...] hygiene technique 7. Identify and instruct patient/patient auto claim representative in use of appropriate isolation precautionsfor identified infection/symptoms 8. Provide and discuss with patient/patient auto claim representative on educational MDRO sheet 9. Encourage and monitor nutritional status daily and consult clinical appeals specialist if indicated 10. Implement neutropenic guidelines as [...] any changes. Problem: Knowledge Deficit Goal: Patient/patient auto claim representative demonstrates understanding of disease process, treatment [...] Score of =/> 25 or indicated by [facility] Assessment Goal: Patient should be free from fall Description: Interventions: 1. [place] to environment 2. Hourly rounds addressing the [...] non-skid footwear 11. Teach patient and patient auto claim representative to maintain environment for safety and [...] (cane, walker) within reach 19. Request patient auto claim representative bring adaptive equipment/mobility aids from home or obtain and provide as needed 20. Consult pharmacy regarding effects of med's affecting mobility, cognition, and alternatives 21. Obtain physician order for PT if risk factors associated with mobility are present 22. Obtain physician order for OT as appropriate 23. Utilize diversional activities 24. Educate patient and patient auto claim representative how to maintain a safe environment during visitationtimes (notify nurse prior to leaving bedside) 25. Consider appropriateness of medical or non-medical collector 26. Set up voiding schedule as appropriate [...] Will continue to monitor during shift. ;; [facility] [employer] [id number] Progress note* Discharge Planning Note - JEWEL [...] pt and pt would like to try [facility]'s IP rehab. Referral sent. Awaiting acceptance. W/C tx cert in dc packet. - JEWEL Crenshaw 01/22/24 11:19 AM [facility] Progress note* Discharge Planning Note - Jackie Caal - 01/22/2024 11:13 AM EDT DISCHARGE PLANNING NOTE Referral to [facility] in [place] (P# ; F# ) [facility]06-10-[facility] Progress note* PT/OT/FIELD IDENTIFICATION SPECIALIST - ALICIA Banda - 01/22/2024 8:31 AM [...] belt, RW Weight Bearing Status: WBAT RLE Telemetry/Horse Race Starter: No Oxygen Used: room air Other: fall [...] and was able to exchange L sock. Nuclear Spectroscopist assisted with R foot. Pt then donned [...] and was able to exchange L sock. Nuclear Spectroscopist assisted with R foot. Pt then donned [...] 01/22/24 1054 WILLARD Banda/Lanie Progressing 01/21/24 1650 NALLELY Grey Progressing 01/21/24 1053 CHARU GreyA/L Progressing 01/20/24 1610 Katlin Goins, SERVIN/L Progressing 01/20/24 0945 Katlin Goins, SERVIN/L Progressing 01/19/24 1531 Nano Maher, SERVIN/L Progressing Goal Note filed on 01/22/24 1054 by Ludy Ireland OTR/L Evaluation of progress towards goal: Problem: Bed Mobility Dates: Start: 01/19/24 Disciplines: OT Goal: Patient will perform bed mobility with Modified [place] Dates: Start: 01/19/24 Expected End: 02/09/24 Description: [...] Patient will perform functional mobility with Modified [place] Dates: Start: 01/19/24 Expected End: 02/09/24 Description: [...] 0945 Katlin Goins, SERVIN/L Progressing 01/19/24 1531 Nanotrevor Maher, SERVIN/L Progressing Goal Note filed on [...] Goal: Patient will perform transfers with Modified [place] Dates: Start: 01/19/24 Expected End: 02/09/24 Description: Goal Description: Disciplines: OT Outcomes Date/Time User Outcome 01/22/24 1054 Ludy Ireland OTR/Lanie Progressing 01/21/24 1650 Ludy Vogt, SERVIN/L Progressing 01/21/24 1053 Ludy Vogt, SERVIN/L Not Progressing 01/20/24 1610 Katiln Goins, SERVIN/L Progressing 01/20/24 0945 Katlin Goins, SERVIN/L Progressing 01/19/24 1531 Nano Maher SERVIN/L Progressing Goal Note filed on 01/22/24 1054 by WILLARD Banda/Lanie Evaluation of progress towards goal: Occupational Therapy Care Plan (Resolved) There are no resolved problems. Principal Problem: Closed fracture of right hip, initial encounter ([facility]) Active Problems: Closed displaced intertrochanteric fracture of right femur ([facility]) [facility] [employer] [id number] Progress note* PT/OT/FIELD IDENTIFICATION SPECIALIST - Shahrzad Garcias PTA - 01/22/2024 8:30 [...] RW Weight Bearing Status: WBAT R LE Telemetry/Horse Race Starter: No Oxygen Used: room air Other: fall [...] complete. Pt used gait belt as leg software test technician to assist RLE OOB. Pt tends to hold his breath with transitions and displays difficulty foloring direction for breathing technique from database report writer. Pt reporting dizziness intially upon sitting [...] Date/Time User Outcome 01/22/24 1051 Shahrzad Garcias, CLASSIFIED ADVERTISING CLERK Progressing 01/21/24 1741 Shahrzad Garcias, CLASSIFIED ADVERTISING CLERK Progressing 01/21/24 1309 Shahrzad Garcias, CLASSIFIED ADVERTISING CLERK Progressing 01/20/24 1607 Shahrzad Garcias, CLASSIFIED ADVERTISING CLERK Progressing 01/20/24 1036 Shahrzad Garcias, CLASSIFIED ADVERTISING CLERK Progressing 01/19/24 1721 Shahrzad Garcias, CLASSIFIED ADVERTISING CLERK Progressing Goal Note filed on 01/22/24 1051 by Shahrzad Garcias PTA Evaluation of progress towards goal: Problem: Bed Mobility Dates: Start: 01/19/24 Disciplines: PT Goal: Patient will perform bed mobility with Minimum Assist Dates: Start: 01/19/24 Expected End: 02/02/24 Description: Goal Description: Disciplines: PT Outcomes Date/Time User Outcome 01/22/24 1051 Shahrzad Garcias, CLASSIFIED ADVERTISING CLERK Progressing 01/21/24 1741 Shahrzad Garcias, CLASSIFIED ADVERTISING CLERK Progressing 01/21/24 1309 Shahrzad Garcias, CLASSIFIED ADVERTISING CLERK Progressing 01/20/24 1607 Shahrzad Garcias, CLASSIFIED ADVERTISING CLERK Progressing 01/20/24 1036 Shahrzad Garcias, CLASSIFIED ADVERTISING CLERK Progressing 01/19/24 1721 Shahrzad Garcias, CLASSIFIED ADVERTISING CLERK Progressing Goal Note filed on 01/22/24 1051 by Shahrzad Garcias PTA Evaluation of progress towards goal: Problem: Gait Dates: Start: 01/19/24 Disciplines: PT Goal: Patient will perform gait with Contact Guard Dates: Start: 01/19/24 Expected End: 02/02/24 Description: With_rw___,__150__feet Goal Description: Disciplines: PT Outcomes Date/Time User Outcome 01/22/24 1051 Shahrzad Garcias, CLASSIFIED ADVERTISING CLERK Progressing 01/21/24 1741 Shahrzad Garcias, CLASSIFIED ADVERTISING CLERK Progressing 01/21/24 1309 Shahrzad Garcias, CLASSIFIED ADVERTISING CLERK Progressing 01/20/24 1607 Shahrzad Garcias, CLASSIFIED ADVERTISING CLERK Progressing 01/20/24 1036 Shahrzad Garcias, CLASSIFIED ADVERTISING CLERK Progressing 01/19/24 1721 Shahrzad Garcias PTA Progressing Goal Note filed on 01/22/24 1051 by Shahrzad Garcias PTA Evaluation of progress towards goal: Problem: Standing Balance Dates: Start: 01/19/24 Disciplines: PT Goal: Improve balance to good Dates: Start: 01/19/24 Expected End: 02/02/24 Description: Static Dynamic- good (-) with support of rw Disciplines: PT Outcomes Date/Time User Outcome 01/22/24 1051 Shahrzad Garicas, CLASSIFIED ADVERTISING CLERK Progressing 01/21/24 1741 Shahrzad Garcias, CLASSIFIED ADVERTISING CLERK Progressing 01/21/24 1309 Shahrzad Garcias PTA Not Progressing 01/20/24 1036 Shahrzad Garcias, CLASSIFIED ADVERTISING CLERK Progressing 01/19/24 1721 Shahrzad Garcias PTA Progressing [...] Garcias PTA Progressing 01/21/24 1309 Shahrzad Garcias, CLASSIFIED ADVERTISING CLERK Progressing 01/20/24 1607 Shahrzad Garcias, SHERYL Progressing 01/20/24 1036 Shahrzad Garcias, CLASSIFIED ADVERTISING CLERK Progressing 01/19/24 1721 Shahrzad Garcias PTA Progressing [...] Garcias PTA Progressing 01/21/24 1309 Shahrzad Garcias, CLASSIFIED ADVERTISING CLERK Not Progressing 01/20/24 1607 Shahrzad Garcias, SHERYL Progressing 01/20/24 1036 Shahrzad Garcias, CLASSIFIED ADVERTISING CLERK Progressing 01/19/24 1721 Shahrzad Garcias PTA Progressing Goal Note filed on 01/22/24 1051 by Shahrzad Garcias PTA Evaluation of progress towards goal: Physical Therapy Care Plan (Resolved) There are no resolved problems. Principal Problem: Closed fracture of right hip, initial encounter ([facility]) Active Problems: Closed displaced intertrochanteric fracture of right femur ([facility]) Associated attestation - Brady Jauregui PT - 01/22/2024 4:19 PM EDT I have reviewed and agree with this note and education documentation for this visit. [facility]06-09-2024 Plan of care note* Plan of Care - Santi Parks RN - 01/21/2024 9:31 PM EDT Problem: Pain Goal: Patient goal is pain score less than 4, able to rest, and participant in treatment plan as appropriate Description: INTERVENTIONS: 1. Encourage patient or legal auto claim representative to report early pain and ask [...] per policy 9. Teach patient or legal auto claim representative interventions for comforting Outcome: Progressing Note: [...] at the bedside 7. Instruct patient/ patient auto claim representative about use of safety devices 8. Include patient/ patient auto claim representative in decisions related to safety Outcome: [...] hygiene technique 7. Identify and instruct patient/patient auto claim representative in use of appropriate isolation precautionsfor identified infection/symptoms 8. Provide and discuss with patient/patient auto claim representative on educational MDRO sheet 9. Encourage and monitor nutritional status daily and consult clinical appeals specialist if indicated 10. Implement neutropenic guidelines as needed 11. Review exposure to history of communicable disease and recent travel history on admission 12. Encourage annual influenza vaccine 13. Encourage pneumonia vaccine Outcome: Progressing Note: Evaluation of progress towards goal: Pt afebrile at this time, continue to monitor for signs infection Problem: Knowledge Deficit Goal: Patient/patient auto claim representative demonstrates understanding of disease process, treatment plan,medications, and discharge instructions Description: INTERVENTIONS 1. Complete learning assessment and assess knowledge base 2. Provide teaching at level of understanding 3. Provide teaching via preferred learning method(s) Outcome: Progressing Note: Evaluation of progress towards goal: POC discussed with patient. Questions answered PRN. [facility]06-09-2024 Progress note* PT/OT/FIELD IDENTIFICATION SPECIALIST - NALLELY Grey - 01/21/2024 5:01 PM [...] RW Weight Bearing Status: WBAT Rt LE Telemetry/Horse Race Starter: No Oxygen Used: room air Other: fall [...] Distance: 40ft x2 Other: Pt ambulated within [place] this date with use of RW for [...] Patient will perform bed mobility with Modified [place] Dates: Start: 01/19/24 Expected End: 02/09/24 Description: Goal Description: Disciplines: OT Outcomes Date/Time User Outcome 01/21/24 1053 Ludy Vogt, SERVIN/L Progressing 01/20/24 1610 Katlin Goins, SERVIN/L Progressing 01/20/24 0945 Katlin Goins, SERVIN/L Progressing 01/19/24 1531 Nano Maher SERVIN/L Progressing Problem: Functional Mobility Dates: Start: 01/19/24 Disciplines: OT Goal: Patient will perform functional mobility with Modified [place] Dates: Start: 01/19/24 Expected End: 02/09/24 Description: [...] Katlin Buster, SERVIN/L Progressing 01/19/24 1531 Nano Gunnar, SERVIN/L Progressing Problem: Standing Balance Dates: Start: 01/19/24 Disciplines: OT Goal: Improve balance to good Dates: Start: 01/19/24 Expected End: 02/09/24 Description: Static Dynamic Disciplines: OT Outcomes Date/Time User Outcome 01/21/24 1650 Ludy Vgot, SERVIN/L Progressing 01/21/24 1053 Ludy Vogt SERVIN/L [...] Progressing 01/21/24 1053 Ludy Vogt SERVIN/L Progressing 01/19/24 1531 Nano Maher, SERVIN/L Progressing Problem: Transfers Dates: Start: 01/19/24 Disciplines: OT Goal: Patient will perform transfers with Modified [place] Dates: Start: 01/19/24 Expected End: 02/09/24 Description: [...] Closed fracture of right hip, initial encounter ([facility]) Active Problems: Closed displaced intertrochanteric fracture of right femur ([facility]) Associated attestation - Ludy Ireland OTR/L - 01/22/2024 7:38 AM EDT I have reviewed and agree with this note and education documentation for this visit. [facility]06-09-2024 Plan of care note* Plan of Care - Chloe Vela RN - 01/21/2024 4:13 PM EDT Problem: Pain Goal: Patient goal is pain score less than 4, able to rest, and participant in treatment plan as appropriate Description: INTERVENTIONS: 1. Encourage patient or legal auto claim representative to report early pain and ask [...] per policy 9. Teach patient or legal auto claim representative interventions for comforting Outcome: Progressing Note: [...] at the bedside 7. Instruct patient/ patient auto claim representative about use of safety devices 8. Include patient/ patient auto claim representative in decisions related to safety Outcome: [...] hygiene technique 7. Identify and instruct patient/patient auto claim representative in use of appropriate isolation precautionsfor identified infection/symptoms 8. Provide and discuss with patient/patient auto claim representative on educational MDRO sheet 9. Encourage and monitor nutritional status daily and consult clinical appeals specialist if indicated 10. Implement neutropenic guidelines as needed 11. Review exposure to history of communicable disease and recent travel history on admission 12. Encourage annual influenza vaccine 13. Encourage pneumonia vaccine Outcome: Progressing Problem: Knowledge Deficit Goal: Patient/patient auto claim representative demonstrates understanding of disease process, treatment [...] discharge planning process 5. Communicate referral to clinical trial educator as appropriate 6. Communicate referral to clinical appeals specialist as appropriate 7. Collaborate with case management/long term care social worker for discharge needs Outcome: Progressing Problem: Moderate - High Risk Fall Score Description: [place] Fall Score of =/> 25 or indicated by [facility] Assessment Goal: Patient should be free from fall Description: Interventions: 1. [place] to environment 2. Hourly rounds addressing the [...] non-skid footwear 11. Teach patient and patient auto claim representative to maintain environment for safety and [...] (cane, walker) within reach 19. Request patient auto claim representative bring adaptive equipment/mobility aids from home or obtain and provide as needed 20. Consult pharmacy regarding effects of med's affecting mobility, cognition, and alternatives 21. Obtain physician order for PT if risk factors associated with mobility are present 22. Obtain physician order for OT as appropriate 23. Utilize diversional activities 24. Educate patient and patient auto claim representative how to maintain a safe environment during visitationtimes (notify nurse prior to leaving bedside) 25. Consider appropriateness of medical or non-medical collector 26. Set up voiding schedule as appropriate (every 2 hours) Outcome: Progressing Note: Evaluation of progress towards goal: Fall precautions in place including bed locked and in lowest position, call light within reach and non skid socks on. Patient calls out appropriately for help. Hourly rounding in place. [facility] [employer] [id number] Progress note* PT/OT/FIELD IDENTIFICATION SPECIALIST - Shahrzad Garcias, CLASSIFIED ADVERTISING CLERK - 01/21/2024 3:32 PM EDT Physical Therapy [...] RW Weight Bearing Status: WBAT Rt LE Telemetry/Horse Race Starter: No Oxygen Used: room air Other: fall [...] Date/Time User Outcome 01/21/24 1741 Shahrzad Garcias, CLASSIFIED ADVERTISING CLERK Progressing 01/21/24 1309 Shahrzad Garcias, CLASSIFIED ADVERTISING CLERK Progressing 01/20/24 1607 Shahrzad Garcias, CLASSIFIED ADVERTISING CLERK Progressing 01/20/24 1036 Shahrzad Garcias, CLASSIFIED ADVERTISING CLERK Progressing 01/19/24 1721 Shahrzad Garcias PTA Progressing Goal Note filed on 01/21/24 174 by Shahrzad Garcias PTA Evaluation of progress towards goal: Problem: Bed Mobility Dates: Start: 01/19/24 Disciplines: PT Goal: Patient will perform bed mobility with Minimum Assist Dates: Start: 01/19/24 Expected End: 02/02/24 Description: Goal Description: Disciplines: PT Outcomes Date/Time User Outcome 01/21/24 1741 Shahrzad Garcias CLASSIFIED ADVERTISING CLERK Progressing 01/21/24 1309 Shahrzad Garcias, CLASSIFIED ADVERTISING CLERK Progressing 01/20/24 1607 Shahrzad Garcias, CLASSIFIED ADVERTISING CLERK Progressing 01/20/24 1036 Shahrzad Garcias, CLASSIFIED ADVERTISING CLERK Progressing 01/19/24 1721 Shahrzad Garcias PTA Progressing Goal Note filed on 01/21/24 174 by Shahrzad Garcias PTA Evaluation of progress towards goal: Problem: Gait Dates: Start: 01/19/24 Disciplines: PT Goal: Patient will perform gait with Contact Guard Dates: Start: 01/19/24 Expected End: 02/02/24 Description: With_rw___,__150__feet Goal Description: Disciplines: PT Outcomes Date/Time User Outcome 01/21/24 1741 Shahrzad Garcias, CLASSIFIED ADVERTISING CLERK Progressing 01/21/24 1309 Shahrzad Garcias, CLASSIFIED ADVERTISING CLERK Progressing 01/20/24 1607 Shahrzad Garcias, CLASSIFIED ADVERTISING CLERK Progressing 01/20/24 1036 Shahrzad Garcias, CLASSIFIED ADVERTISING CLERK Progressing 01/19/24 1721 Shahrzad Garcias PTA Progressing Goal Note filed on 01/21/24 174 by Shahrzad Garcias PTA Evaluation of progress towards goal: Problem: Standing Balance Dates: Start: 01/19/24 Disciplines: PT Goal: Improve balance to good Dates: Start: 01/19/24 Expected End: 02/02/24 Description: Static Dynamic- good (-) with support of rw Disciplines: PT Outcomes Date/Time User Outcome 01/21/24 1741 Shahrzad Garcias CLASSIFIED ADVERTISING CLERK Progressing 01/21/24 1309 Shahrzad Garcias, CLASSIFIED ADVERTISING CLERK Not Progressing 01/20/24 1036 Shahrzad Garcias, CLASSIFIED ADVERTISING CLERK Progressing 01/19/24 1721 Shahrzad Garcias PTA Progressing [...] Garcias PTA Progressing 01/21/24 1309 Shahrzad Garcias, CLASSIFIED ADVERTISING CLERK Progressing 01/20/24 1607 Shahrzad Garcias, CLASSIFIED ADVERTISING CLERK Progressing 01/20/24 1036 Shahrzad Garcias, SHERYL Progressing 01/19/24 1721 Shahrzad Garcias PTA Progressing Goal Note filed on 01/21/24 174 by Shahrzad Garcias PTA Evaluation of progress towards goal: Problem: Transfers Dates: Start: 01/19/24 Disciplines: PT Goal: Patient will perform transfers with Contact Guard Dates: Start: 01/19/24 Expected End: 02/02/24 Description: Goal Description: Disciplines: PT Outcomes Date/Time User Outcome 01/21/24 1741 Shahrzad Garcias CLASSIFIED ADVERTISING CLERK Progressing 01/21/24 1309 Shahrzad Garcias, CLASSIFIED ADVERTISING CLERK Not Progressing 01/20/24 1607 Shahrzad Garcias, CLASSIFIED ADVERTISING CLERK Progressing 01/20/24 1036 Shahrzad Garcias, SHERYL Progressing 01/19/24 1721 Shahrzad Garcias PTA Progressing Goal Note filed on 01/21/24 1741 by Shahrzad Garcias PTA Evaluation of progress towards goal: Physical Therapy Care Plan (Resolved) There are no resolved problems. Principal Problem: Closed fracture of right hip, initial encounter ([facility]) Active Problems: Closed displaced intertrochanteric fracture of right femur ([facility]) Associated attestation - Brady Jauregui PT - 01/22/2024 4:19 PM EDT I have reviewed and agree with this note and education documentation for this visit. [facility] [employer] [id number] Progress note* PT/OT/FIELD IDENTIFICATION SPECIALIST - NALLELY Grey - 01/21/2024 11:13 AM [...] None Scoring Daily Activity Raw Score: 16 [facility] G Code Modifier: CK 01/21/24 1043 [...] pole Weight Bearing Status: WBAT Rt LE Telemetry/Horse Race Starter: No Oxygen Used: room air Other: fall [...] pt utilizing looped gait belt as leg software test technician for RLE to advance toward EOB. Pt [...] Patient will perform bed mobility with Modified Elmore Dates: Start: 01/19/24 Expected End: 02/09/24 Description: Goal Description: Disciplines: OT Outcomes Date/Time User Outcome 01/21/24 1053 Ludy Vogt, SERVIN/L Progressing 01/20/24 1610 Katlin Goins SERVIN/L Progressing 01/20/24 0945 Katlin Goins, SERVIN/L Progressing 01/19/24 1531 Nano Maher, SERVIN/L Progressing Problem: Functional Mobility Dates: Start: 01/19/24 Disciplines: OT Goal: Patient will perform functional mobility with Modified Elmore Dates: Start: 01/19/24 Expected End: 02/09/24 Description: Goal Description: Disciplines: OT Outcomes Date/Time User Outcome 01/21/24 1053 Lduy Vogt, SERVIN/L Progressing 01/20/24 1610 Katlin Goins [...] Ludy Vogt SERVIN/L Progressing 01/20/24 1610 Katlin Buster, SERVIN/L Progressing 01/20/24 [...] Goal: Patient will perform transfers with Modified Elmore Dates: Start: 01/19/24 Expected End: 02/09/24 Description: Goal Description: Disciplines: OT Outcomes Date/Time User Outcome 01/21/24 1053 Ludy Vogt SERVIN/L Not Progressing 01/20/24 1610 Katlin Goins, SERVIN/L Progressing 01/20/24 0945 Katlin Buster, SERVIN/L Progressing 01/19/24 1531 Nano Maher SERVIN/L Progressing Occupational Therapy Care Plan (Resolved) There are no resolved problems. Principal Problem: Closed fracture of right hip, initial encounter ([facility]) Active Problems: Closed displaced intertrochanteric fracture of right femur ([facility]) Associated attestation - Virgil Nunes OTR/L - 01/21/2024 12:48 PM EDT I have reviewed and agree with this note and education documentation for this visit. [employer] [id number] Progress note* PT/OT/FIELD IDENTIFICATION SPECIALIST - Shahrzad Garcias, CLASSIFIED ADVERTISING CLERK - 01/21/2024 9:49 AM EDT Physical Therapy [...] pole Weight Bearing Status: WBAT Rt LE Telemetry/Horse Race Starter: No Oxygen Used: room air Other: fall [...] railing required to complete. Use of limb software test technician for RLE support OOB. Increased time and [...] Closed fracture of right hip, initial encounter ([facility]) Active Problems: Closed displaced intertrochanteric fracture of right femur ([facility]) Associated attestation - Carlos Brar PT - 01/21/2024 3:57 PM EDT I have reviewed and agree with this note and education documentation for this visit. [facility]06-09-2024 Plan of care note* Plan of Care - Virgil Gonzalez RN - 01/21/2024 2:05 AM EDT Problem: Pain Goal: Patient goal is pain score less than 4, able to rest, and participant in treatment plan as appropriate Description: INTERVENTIONS: 1. Encourage patient or legal auto claim representative to report early pain and ask [...] per policy 9. Teach patient or legal auto claim representative interventions for comforting Outcome: Not Progressing [...] impact it will have on his body. T [facility]06-08-2024 Progress note* PT/OT/FIELD IDENTIFICATION SPECIALIST - NALLELY Meneses - 01/20/2024 4:21 PM [...] environment. Pt utilized gait belt as leg software test technician with cues for tech to A RLE [...] (-) Other: Pt completed standing marches with CLASSIFIED ADVERTISING CLERK with heavy BUE support on RW. Pt [...] Patient will perform bed mobility with Modified Elmore Dates: Start: 01/19/24 Expected End: 02/09/24 Description: Goal Description: Disciplines: OT Outcomes Date/Time User Outcome 01/20/24 1610 Katlin Goins, SERVIN/L Progressing 01/20/24 0945 Kaltin Goins, SERVIN/L Progressing 01/19/24 1531 Nano Maher SERVIN/L Progressing Problem: Functional Mobility Dates: Start: 01/19/24 Disciplines: OT Goal: Patient will perform functional mobility with Modified Elmore Dates: Start: 01/19/24 Expected End: 02/09/24 Description: Goal Description: Disciplines: OT Outcomes Date/Time User Outcome 01/20/24 1610 Katlin Goins, SERVIN/L Progressing 01/20/24 0945 Katlin Goins, SERVIN/L Progressing 01/19/24 1531 Nano Maher SERVIN/Lanie [...] 0945 Katlin Goins SERVIN/L Progressing 01/19/24 1531 NALLELY Hernandez Progressing [...] Goal: Patient will perform transfers with Modified Elmore Dates: Start: 01/19/24 Expected End: 02/09/24 Description: Goal Description: Disciplines: OT Outcomes Date/Time User Outcome 01/20/24 1610 Katlin Goins SERVIN/L Progressing 01/20/2445 Katlin Goins SERVIN/L Progressing 01/19/24 1531 MALATHI Hernandez/Lanie Progressing Occupational Therapy Care Plan (Resolved) There are no resolved problems. Principal Problem: Closed fracture of right hip, initial encounter ([facility]) Active Problems: Closed displaced intertrochanteric fracture of right femur ([facility]) Associated attestation - Virgil Nunes OTR/L - 01/21/2024 12:48 PM EDT I have reviewed and agree with this note and education documentation for this visit. [employer] [id number] Progress note* PT/OT/FIELD IDENTIFICATION SPECIALIST - Shahrzad Garcias, CLASSIFIED ADVERTISING CLERK - 01/20/2024 3:15 PM EDT Physical Therapy [...] bed railing. Education provided on useof limb software test technician to assist RLE OOB. Pt able to [...] Note filed on 01/20/24 1607 by Shahrzad Garicas PTA Evaluation of progress towards goal: Problem: [...] Closed fracture of right hip, initial encounter ([facility]) Active Problems: Closed displaced intertrochanteric fracture of right femur ([facility]) Associated attestation - Carlos Brar PT - 01/21/2024 3:57 PM EDT I have reviewed and agree with this note and education documentation for this visit. [facility]06-08-2024 Consult note* Anne Ventura MD - 01/20/2024 [...] from lisinopril Chronic pain disorder Colon cancer ([facility]) COPD (chronic obstructive pulmonary disease) ([facility]) Depression Diabetes mellitus type 2, controlled ([facility]) Fibromyalgia, primary Fracture of right hip, closed, initial encounter ([facility]) 01/17/2024 GERD (gastroesophageal reflux disease) Hyperlipidemia Hypertension Insulin-treated type 2 diabetes mellitus ([facility]) Joint pain Kidney stones Liver disease Low back pain Neck pain Obesity Osteoarthritis Visual impairment PSH: Past Surgical History: Procedure Laterality Date BACK SURGERY COLON SURGERY resection, 2018, [facility] DAVINCI REPAIR HERNIA VENTRAL N/A 10/27/2021 Performed by Ridge Cedillo MD at [facility] DENTAL SURGERY pt had all teeth removed HERNIA REPAIR x's 2 INSERTION INTRAMEDULLARY NAIL FEMUR-TFNA HIP FX Right 01/18/2024 Performed by Ang Figueroa MD at [facility] ORTHOPEDIC SURGERY 2007 foot, infected foot [...] Stephen Hannah MD, 1 patch at 01/19/24 213 losartan (COZAAR) tablet 100 mg, 100 mg, [...] 40 mg, 40 mg, oral, Daily, Abad Reedvi, DO, 40 mg at 01/20/24 0617 polyethylene [...] 550 mg, 550 mg, oral, Q12H SADA, Mahammad Imani, DO, 550 mg at 01/20/24 0907 [...] you for the consultation Anne Ventura MD [facility]06-08-2024 Consult note* Anne Ventura MD - 01/20/2024 [...] from lisinopril Chronic pain disorder Colon cancer ([facility]) COPD (chronic obstructive pulmonary disease) ([facility]) Depression Diabetes mellitus type 2, controlled ([facility]) Fibromyalgia, primary Fracture of right hip, closed, initial encounter ([facility]) 01/17/2024 GERD (gastroesophageal reflux disease) Hyperlipidemia Hypertension Insulin-treated type 2 diabetes mellitus ([facility]) Joint pain Kidney stones Liver disease Low back pain Neck pain Obesity Osteoarthritis Visual impairment PSH: Past Surgical History: Procedure Laterality Date BACK SURGERY COLON SURGERY resection, 2018, [facility] DAVINCI REPAIR HERNIA VENTRAL N/A 10/27/2021 Performed by Ridge Cedillo MD at [facility] DENTAL SURGERY pt had all teeth removed HERNIA REPAIR x's 2 INSERTION INTRAMEDULLARY NAIL FEMUR-TFNA HIP FX Right 01/18/2024 Performed by Ang Figueroa MD at [facility] ORTHOPEDIC SURGERY 2007 foot, infected foot Allergies Allergen Reactions Insulin Glargine Nausea And Vomiting and GI Disturbance Current Facility-Administered Medications: acetaminophen (TYLENOL EXTRA STRENGTH) tablet 1,000 mg, 1,000 mg, oral, Q6H [facility], Stephen Hannah MD, 1,000 mg at 01/20/24614 [...] Vilma Beckwith PA-C, 40 mg at 01/20/24 06 ergocalciferol (DRISDOL) capsule 50,000 Units, 50,000 Units, [...] Closed displaced intertrochanteric fracture of right femur ([facility]) Closed fracture of right hip, initial encounter ([facility]) Past Medical History: Past Medical History: Diagnosis Date Asthma Back pain Chronic cough from lisinopril Chronic pain disorder Colon cancer ([facility]) COPD (chronic obstructive pulmonary disease) ([facility]) Depression Diabetes mellitus type 2, controlled ([facility]) Fibromyalgia, primary Fracture of right hip, closed, initial encounter ([facility]) 01/17/2024 GERD (gastroesophageal reflux disease) Hyperlipidemia Hypertension Insulin-treated type 2 diabetes mellitus ([facility]) Joint pain Kidney stones Liver disease Low back pain Neck pain Obesity Osteoarthritis Visual impairment Past Surgical History: Past Surgical History: Procedure Laterality Date BACK SURGERY COLON SURGERY resection, 2018, [facility] DAVINCI REPAIR HERNIA VENTRAL N/A 10/27/2021 Performed by Ridge Cedillo MD at [facility] DENT[facility] pt had all teeth removed HERNIA REPAIR x's 2 ORTHOPEDIC SURGERY 2007 foot, infected foot Brief Clinical Summary: Patient initially presented to OSH d/t right hip pain s/p fall. [facility]. PMHx includes IDDM2, [...] last 7 days Lab Units 01/18/24 0724 01/18/2425601/17/24 17501/17/24 0535 BEDSIDE GLUCOSE mg/dL 119* -- 94 -- GLUCOSE mg/dL -- 123* -- 102* Results from last 3 days Lab Units 01/18/24 02501/17/24 0535 WBC X10E9/L 6.2 8.1 HEMOGLOBIN g/dL [...] (L) 01/17/2024 Lab Results Component Value Date [id number] 242 01/17/2024 Lab Results Component Value Date [...] tablet 1,000 mg 1,000 mg oral Q6H [facility] Stephen Hannah MD 1,000 mg at 01/18/24 [...] Daily Stephen Hannah MD 800 mg at 01/17/242147 [Transfer Hold] glucagon HCL injection 1 mg 1 mg intramuscular PRN Stephen Hannah MD HYDROmorphone (DILAUDID) injection 0.2 mg 0.2 mg intravenous Q5 Min PRN Jonathan Malas, MD HYDROmorphone (DILAUDID) injection 0.4 mg 0.4 mg intravenous Q5 Min PRN Jonathan Reyes MD [Transfer Hold] HYDROmorphone (PF) (DILAUDID) injection 1 mg 1 mg intravenous Q2H PRN Geoffrey Webber DO 1 mg at 01/18/24 0827 [Transfer [...] (40 mg/mL premix) 2,000 mg intravenous PRN Stepehn Hannah MD Stopped at 01/18/24 0751 [Transfer [...] Skin (per nursing flow sheets): Skin Color: Pyote (01/18/24 1335) Skin Temp: Dry; Warm (01/18/24 133) Wound (per nursing flow sheets): Wound 01/18/24 [...] floor.Patient did not trigger for 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 Allergies: Allergies Allergen Reactions [...] from 08/19/22) Usual Body Weight: 113.4kg (08/19/22) Jackson Body Weight: 83.6kg Percent Jackson Body Weight: 139 Weight Changes: Need new weight, bed scale vs standing scale. Body Mass Index: Body mass index is 33.65 kg/m . BMI Category: Obese class 1 (30.00- 34.99) Comparative Standards: Estimated Energy Needs: 5596-1607 kcals daily. Method and weight used: 25-32 kcal/kg IBW (83.6kg) Estimated Protein Needs: 100-165 grams daily. Method and weight used: 1.2-2g protein/kg IBW Estimated Fluid Needs: 3271-9761 ml daily. Method weight used: 1ml/kcal Comments: [...] is a 53 y.o. male [facility] c/o right hip pain after a [...] at outside hospital and was transferred to [facility] for[facility] management. Patient has no other complaints [...] Chronic cough Chronic pain disorder Colon cancer ([facility]) Colon cancer ([facility]) Depression Diabetes mellitus type 2, controlled ([facility]) Fibromyalgia, primary GERD (gastroesophageal reflux disease) Hyperlipidemia Hypertension Insulin-treated type 2 diabetes mellitus ([facility]) Joint pain Kidney stones Liver disease Low back pain Neck pain Obesity Osteoarthritis Visual impairment Past Surgical History: Procedure Laterality Date BACK SURGERY COLON SURGERY resection, 2018, [facility] DAVINCI REPAIR HERNIA VENTRAL N/A 10/27/2021 Performed by Ridge Cedillo MD at [facility] D[facility] SURGERY pt had all teeth [...] mg, 1 mg, intravenous, Q2H PRN, Geoffrey Webber DO, 1 mg at 01/17/24 1023 sodium chloride 0.9 % infusion, 250 mL/hr, intravenous, Continuous, Geoffrey Webber DO, Last Rate: 250 mL/hr at 01/17/24 [...] contact ortho hot pager for any questions/concerns [phone] LUIS MCCARTHY PA-C [id number] I, ANG FIGUEROA MD, personally performed the face to face diagnostic evaluation on this patient. My findings are as follows: Patient seen evaluated in the emergency department. He was transferred from [place] for orthopedic care to [place]. He had a mechanical fall resulting in [...] standpoint. Ang Figueroa MD. [facility] Progress note* PT/OT/FIELD IDENTIFICATION SPECIALIST - NALLELY Meneses - 01/20/2024 10:11 AM [...] Utilized gait belt to act as leg software test technician; instructed pt to lift R leg to [...] Description: Disciplines: OT Outcomes Date/Time User Outcome 01/20/24MALATHI Reid/Lanie Progressing 01/19/24 1531 MALATHI Hernandez/Lanie Progressing Problem: Bed Mobility Dates: Start: 01/19/24 Disciplines: OT Goal: Patient will perform bed mobility with Modified Elmore Dates: Start: 01/19/24 Expected End: 02/09/24 Description: Goal Description: Disciplines: OT Outcomes Date/Time User Outcome 01/20/24MALATHI Reid/Lanie Progressing 01/19/24 1531 MALATHI Hernandez/Lanie Progressing Problem: Functional Mobility Dates: Start: 01/19/24 Disciplines: OT Goal: Patient will perform functional mobility with Modified Elmore Dates: Start: 01/19/24 Expected End: 02/09/24 Description: Goal Description: Disciplines: OT Outcomes Date/Time User Outcome 01/20/24MALATHI Reid/Lanie Progressing 01/19/24 1531 CHARU HernandezA/Lanie Progressing Problem: [...] Date/Time User Outcome 01/20/24 09CHARU ReidA/Lanie Progressing 01/19/24 1531 CHARU HernandezA/Lanie Progressing Problem: Standing Balance Dates: Start: 01/19/24 Disciplines: OT Goal: Improve balance to good Dates: Start: 01/19/24 Expected End: 02/09/24 Description: Static Dynamic Disciplines: OT Outcomes Date/Time User Outcome 01/20/24CHARU ReidA/Lanie Progressing 01/19/24 1531 MALATHI Hernandez/Lanie Progressing Problem: [...] Goal: Patient will perform transfers with Modified Elmore Dates: Start: 01/19/24 Expected End: 02/09/24 Description: Goal Description: Disciplines: OT Outcomes Date/Time User Outcome 01/20/24 09CHARU ReidA/Lanie Progressing 01/19/24 1531 MALATHI Hernandez/Lanie Progressing Occupational Therapy Care Plan (Resolved) There are no resolved problems. Principal Problem: Closed fracture of right hip, initial encounter ([facility]) Active Problems: Closed displaced intertrochanteric fracture of right femur ([facility]) Associated attestation - Virgil Nunes OTR/L - 01/20/2024 1:17 PM EDT I have reviewed and agree with this note and education documentation for this visit. [employer] [id number] Progress note* PT/OT/FIELD IDENTIFICATION SPECIALIST - Shahrzad Garcias PTA - 01/20/2024 8:17 [...] 6 Clicks: Basic Mobility Raw Score: 11 [facility] G Code Modifier: CL Therapy Plan [...] EOB. Use of gait belt as limb software test technician for RLE with fair- poor carryover. Pt displayed decreased ability to scoot hips to EOB d/t pain in R hip and required assistance from database report writer to complete. Pt denied dizziness with [...] handles to complete. First attempt was unsuccessful. Nuclear Spectroscopist educated pt on use of momentum and [...] PTA Progressing Goal Note filed on 01/20/24 103 by Shahrzad Garcias PTA Evaluation of progress [...] Closed fracture of right hip, initial encounter ([facility]) Active Problems: Closed displaced intertrochanteric fracture of right femur ([facility]) Associated attestation - Brady Jauregui, PT - 01/20/2024 3:30 PM EDT I have reviewed and agree with this note and education documentation for this visit. [facility]06-07-2024 Progress note* Discharge Planning Note - Jackie Caal - 01/19/2024 3:48 PM EDT DISCHARGE PLANNING NOTE Referral to [address]- [place] (P# ; F# ); [place] (P#[phone] ; F# [phone]) and [facility] ([place]- P# ; F# ) ([place], [place] P# ; F#) [facility]06-07-2024 Progress note* PT/OT/FIELD IDENTIFICATION SPECIALIST - NALLELY Hernandez - 01/19/2024 3:32 PM [...] None Scoring Daily Activity Raw Score: 15 [facility] G Code Modifier: CK OT Treatment/Interventions: [...] Patient will perform bed mobility with Modified Elmore Dates: Start: 01/19/24 Expected End: 02/09/24 Description: Goal Description: Disciplines: OT Outcomes Date/Time User Outcome 01/19/24 153Yohana MALATHI Hernandez/Lanie Progressing Problem: Functional Mobility Dates: Start: 01/19/24 Disciplines: OT Goal: Patient will perform functional mobility with Modified Elmore Dates: Start: 01/19/24 Expected End: 02/09/24 Description: Goal Description: Disciplines: OT Outcomes Date/Time User Outcome 01/19/24 153Yohana CHARU HernandezA/Lanie Progressing Problem: Other (Customize) Dates: Start: 01/19/24 Disciplines: OT Goal: Improve Dates: Start: 01/19/24 Expected End: 02/09/24 Description: Goal Description: Complete ADLs [place] with AE/DME Disciplines: OT Problem: Sitting Balance Dates: Start: 01/19/24 Disciplines: OT Goal: Improve balance to good Dates: Start: 01/19/24 Expected End: 02/09/24 Description: Static Dynamic Disciplines: OT Outcomes Date/Time User Outcome 01/19/24 153Yohana MALATHI Hernandez/Lanie Progressing Problem: Standing Balance Dates: Start: 01/19/24 Disciplines: OT Goal: Improve balance to good Dates: Start: 01/19/24 Expected End: 02/09/24 Description: Static Dynamic Disciplines: OT Outcomes Date/Time User Outcome 01/19/24 1531 NanoMALATHI Banks/Lanie Progressing Problem: Strength Dates: Start: 01/19/24 Disciplines: OT Goal: Improve strength Dates: Start: 01/19/24 Expected End: 02/09/24 Description: Of extremity/ location: Tolerate bilat UE exercises to increase strength and endurancefor self care tasks. To facilitate: Disciplines: OT Outcomes Date/Time User Outcome 01/19/24 1531 Nano MALATHI Maher/Lanie Progressing Problem: Transfers Dates: Start: 01/19/24 Disciplines: OT Goal: Patient will perform transfers with Modified Elmore Dates: Start: 01/19/24 Expected End: 02/09/24 Description: Goal Description: Disciplines: OT Outcomes Date/Time User Outcome 01/19/24 153Yohana VillanuevaMALATHI Banks/Lanie Progressing Occupational Therapy Care Plan (Resolved) There are no resolved problems. Principal Problem: Closed fracture of right hip, initial encounter ([facility]) Active Problems: Closed displaced intertrochanteric fracture of right femur ([facility]) Associated attestation - Virgil Nunes OTR/L - 01/20/2024 1:17 PM EDT I have reviewed and agree with this note and education documentation for this visit. [facility] Progress note* Discharge Planning Note - JEWLE Crenshaw - 01/19/2024 3:04 PM EDT DISCHARGE [...] home care arranged. Referral's were placed to [address] (1st choice) & [facility], await acceptance. - JEWEL Crenshaw 01/19/24 3:08 PM Loopster [id number] Progress note* PT/OT/FIELD IDENTIFICATION SPECIALIST - Shahrzad Garcias PTA - 01/19/2024 1:55 [...] transition. Pt had difficutly following direction/cueing from database report writer. Visual demo and tactile cueing provided [...] rw Disciplines: PT Outcomes Date/Time User Outcome 01/19/24 172 Shahrzad Garcias PTA Progressing Goal Note filed on 01/19/241720 by Shahrzad Garcias PTA Evaluation of progress towards goal: Problem: Strength Dates: Start: 01/19/24 Disciplines: PT Goal: Improve strength Dates: Start: 01/19/24 Expected End: 02/02/24 Description: Of extremity/ location:Complete 20 reps bilat UE/LE ex's To facilitate: Disciplines: PT Outcomes Date/Time User Outcome 01/19/24 [...] Closed fracture of right hip, initial encounter ([facility]) Active Problems: Closed displaced intertrochanteric fracture of right femur ([facility]) Associated attestation - Brady Jauregui PT - 01/20/2024 3:30 PM EDT I have reviewed and agree with this note and education documentation for this visit. Loopster [id number] Progress note* PT/OT/FIELD IDENTIFICATION SPECIALIST - Lindsay Infante, PT - 01/19/2024 1:52 PM EDT Physical Therapy Evaluation Discharge Recommendations PT Recommendations: Inpatient Rehab Inpatient Rehab Criteria: All inpatient rehab criteria expected to be met Therapy Plan Need for skilled Physical Therapy to address deficits in functional mobility due to a status decline resulting from hospitalization. Pt to [facility] via EMS with Rt LE pain. Pt [...] from lisinopril Chronic pain disorder Colon cancer ([facility]) COPD (chronic obstructive pulmonary disease) ([facility]) Depression Diabetes mellitus type 2, controlled ([facility]) Fibromyalgia, primary Fracture of right hip, closed, initial encounter ([facility]) 01/17/2024 GERD (gastroesophageal reflux disease) Hyperlipidemia Hypertension Insulin-treated type 2 diabetes mellitus ([facility]) Joint pain Kidney stones Liver disease Low back pain Neck pain Obesity Osteoarthritis Visual impairment Past Surgical History: Procedure Laterality Date BACK SURGERY COLON SURGERY resection, 2017, [facility] DAVINCI REPAIR HERNIA VENTRAL N/A 10/27/2021 Performed by Ridge Cedillo MD at [facility] DENTAL SURGERY pt had all teeth removed HERNIA REPAIR x's 2 INSERTION INTRAMEDULLARY NAIL FEMUR-TFNA HIP FX Right 01/18/2024 Performed by Ang Figueroa MD at [facility] ORTHOPEDIC SURGERY 2008 foot, infected foot 6 [...] 6 Clicks: Basic Mobility Raw Score: 11 [facility] G Code Modifier: CL Recommended Consults: PM&R [...] Closed fracture of right hip, initial encounter ([facility]) Active Problems: Closed displaced intertrochanteric fracture of right femur ([facility]) [facility] [id number] Progress note* PT/OT/FIELD IDENTIFICATION SPECIALIST - Nohemy Han OTR/L - 01/19/2024 1:03 PM EDT Occupational [...] status decline resulting from hospitalization. Pt to [facility] via EMS with Rt LE pain. Pt [...] from lisinopril Chronic pain disorder Colon cancer ([facility]) COPD (chronic obstructive pulmonary disease) ([facility]) Depression Diabetes mellitus type 2, controlled ([facility]) Fibromyalgia, primary Fracture of right hip, closed, initial encounter ([facility]) 01/17/2024 GERD (gastroesophageal reflux disease) Hyperlipidemia Hypertension Insulin-treated type 2 diabetes mellitus ([facility]) Joint pain Kidney stones Liver disease Low back pain Neck pain Obesity Osteoarthritis Visual impairment Past Surgical History: Procedure Laterality Date BACK SURGERY COLON SURGERY resection, 2018, [facility] DAVINCI REPAIR HERNIA VENTRAL N/A 10/27/2021 Performed by Ridge Cedillo MD at [facility] D[facility] pt had all teeth removed HERNIA REPAIR x's 2 INSERTION INTRAMEDULLARY NAIL FEMUR-TFNA HIP FX Right 01/18/2024 Performed by Ang Figueroa MD at [facility] ORTHOPEDIC SURGERY 2007 foot, infected foot [...] shower chair) Other : No AE/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 shoulder and elbow 4-/5. Lamp Decorator 3+/5) Activity Tolerance Endurance: Tolerates >30 minutes [...] Patient will perform bed mobility with Modified [place] Dates: Start: 01/19/24 Expected End: 02/09/24 Description: Goal Description: Disciplines: OT Problem: Functional Mobility Dates: Start: 01/19/24 Disciplines: OT Goal: Patient will perform functional mobility with Modified [place] Dates: Start: 01/19/24 Expected End: 02/09/24 Description: [...] Goal: Patient will perform transfers with Modified [place] Dates: Start: 01/19/24 Expected End: 02/09/24 Description: Goal Description: Disciplines: OT Occupational Therapy Care Plan (Resolved) There are no resolved problems. Principal Problem: Closed fracture of right hip, initial encounter ([facility]) Active Problems: Closed displaced intertrochanteric fracture of right femur ([facility]) [facility]06-07-2024 Plan of care note* Plan of Care - Lian Silva RN - 01/19/2024 12:34 PM EDT Problem: Pain Goal: Patient goal is pain score less than 4, able to rest, and participant in treatment plan as appropriate Description: INTERVENTIONS: 1. Encourage patient or legal auto claim representative to report early pain and ask [...] per policy 9. Teach patient or legal auto claim representative interventions for comforting Outcome: Progressing Note: [...] at the bedside 7. Instruct patient/ patient auto claim representative about use of safety devices 8. Include patient/ patient auto claim representative in decisions related to safety Outcome: [...] Score of =/> 25 or indicated by [facility] Assessment Goal: Patient should be free from fall Description: Interventions: 1. [place] to environment 2. Hourly rounds addressing the [...] non-skid footwear 11. Teach patient and patient auto claim representative to maintain environment for safety and [...] (cane, walker) within reach 19. Request patient auto claim representative bring adaptive equipment/mobility aids from home or obtain and provide as needed 20. Consult pharmacy regarding effects of med's affecting mobility, cognition, and alternatives 21. Obtain physician order for PT if risk factors associated with mobility are present 22. Obtain physician order for OT as appropriate 23. Utilize diversional activities 24. Educate patient and patient auto claim representative how to maintain a safe environment during visitationtimes (notify nurse prior to leaving bedside) 25. Consider appropriateness of medical or non-medical collector 26. Set up voiding schedule as appropriate (every 2 hours) Outcome: Progressing Note: Evaluation of progress towards goal: Call light within reach. Remains free of fall or injury.Environment free of clutter. [facility]06-06-2024 Plan of care note* Plan of Care [...] hygiene technique 7. Identify and instruct patient/patient auto claim representative in use of appropriate isolation precautionsfor identified infection/symptoms 8. Provide and discuss with patient/patient auto claim representative on educational MDRO sheet 9. Encourage and monitor nutritional status daily and consult clinical appeals specialist if indicated 10. Implement neutropenic guidelines as [...] Score of =/> 25 or indicated by [facility] Assessment Goal: Patient should be free from fall Description: Interventions: 1. [place] to environment 2. Hourly rounds addressing the [...] non-skid footwear 11. Teach patient and patient auto claim representative to maintain environment for safety and [...] (cane, walker) within reach 19. Request patient auto claim representative bring adaptive equipment/mobility aids from home or obtain and provide as needed 20. Consult pharmacy regarding effects of med's affecting mobility, cognition, and alternatives 21. Obtain physician order for PT if risk factors associated with mobility are present 22. Obtain physician order for OT as appropriate 23. Utilize diversional activities 24. Educate patient and patient auto claim representative how to maintain a safe environment during visitationtimes (notify nurse prior to leaving bedside) 25. Consider appropriateness of medical or non-medical collector 26. Set up voiding schedule as appropriate (every 2 hours) Outcome: Progressing Note: Evaluation of progress towards goal: Patient remains fall free at this time, fall precautionsin place. [employer]06-06-2024 Nurse Note* uGrjit Drummond RN - 01/18/2024 3:27 PM EDT Pt here in [facility] from [place]. Pt. C/o right hip surgery site pain. 04/23. MALCOLM RN put 2 bags of ice to the surgery site . [facility]06-06-2024 Nurse Note* Gurjit Drummond RN - 01/18/2024 [...] needs at this time. documented in this encounterFisher[facility] Consult note* AARTI Roach - 01/18/2024 2:17 PM EDTAssociated Order(s): IP CONSULT TO NUTRITION SERVICES NUTRITION ADULT INITIAL EVALUATION NUTRITION ASSESSMENT: Reason to be seen: Consult for assessment Patient History: Admit Diagnosis: Patient Active Problem List Diagnosis Facial infection Abdominal pain Closed displaced intertrochanteric fracture of right femur ([facility]) Closed fracture of right hip, initial encounter ([facility]) Past Medical History: Past Medical History: Diagnosis Date Asthma Back pain Chronic cough from lisinopril Chronic pain disorder Colon cancer ([facility]) COPD (chronic obstructive pulmonary disease) ([facility]) Depression Diabetes mellitus type 2, controlled ([facility]) Fibromyalgia, primary Fracture of right hip, closed, initial encounter ([facility]) 01/17/2024 GERD (gastroesophageal reflux disease) Hyperlipidemia Hypertension Insulin-treated type 2 diabetes mellitus ([facility]) Joint pain Kidney stones Liver disease Low back pain Neck pain Obesity Osteoarthritis Visual impairment Past Surgical History: Past Surgical History: Procedure Laterality Date BACK SURGERY COLON SURGERY resection, 2018, [facility] DAVINCI REPAIR HERNIA VENTRAL N/A 10/27/2021 Performed by Ridge Cedillo MD at [facility] DENTAL SURGERY pt had all teeth removed HERNIA REPAIR x's 2 ORTHOPEDIC SURGERY 2007 foot, infected foot Brief Clinical Summary: Patient initially presented to OSH d/t right hip pain s/p fall. [facility]. 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 Allergies: Allergies Allergen Reactions [...] from 08/19/22) Usual Body Weight: 113.4kg (08/19/22) Jackson Body Weight: 83.6kg Percent Jackson Body Weight: 139 Weight Changes: Need new weight, bed scale vs standing scale. Body Mass Index: Body mass index is 33.65 kg/m . BMI Category: Obese class 1 (30.00- 34.99) Comparative Standards: Estimated Energy Needs: 7807-9448 kcals daily. Method and weight used: 25-32 kcal/kg IBW (83.6kg) Estimated Protein Needs: 100-165 grams daily. Method and weight used: 1.2-2g protein/kg IBW Estimated Fluid Needs: 1227-0328 ml daily. Method weight used: 1ml/kcal Comments: [...] Nails RD, AARTI Clinical Dietitian Direct Line: Loopster [id number] Procedure note* Op Note - Ang Figueroa MD - 01/18/2024 12:24 PM EDT DATE OF OPERATION: January 18, 2024 PREOPERATIVE DIAGNOSIS: 1. right intertrochanteric hip fracture. POSTOPERATIVE DIAGNOSIS: 1. Same OPERATION: 1. IM nail right intertrochanteric hip fracture.- [id number] SURGEON: Ang Figueroa MD PHOTOGRAPHER: none ANESTHESIA: General. MEDICATIONS: ancef IV preop. [...] , damage to normal structure, PE, DVT, [place], stroke, nonunion, malunion, chronicpain, arthrosis, arthritis, limited [...] at time of surgery. ANG FIGUEROA MD [facility] CenterEnduring HydroMer[facility] Health St[facility] [id number] Attending History and physical note* Ang Figueroa [...] is a 53 y.o. male presents to [facility] c/o right hip pain after a [...] at outside hospital and was transferred to [facility] for[facility] management. Patient has no other complaints [...] Chronic cough Chronic pain disorder Colon cancer ([facility]) Colon cancer ([facility]) Depression Diabetes mellitus type 2, controlled ([facility]) Fibromyalgia, primary GERD (gastroesophageal reflux disease) Hyperlipidemia Hypertension Insulin-treated type 2 diabetes mellitus ([facility]) Joint pain Kidney stones Liver disease Low back pain Neck pain Obesity Osteoarthritis Visual impairment Past Surgical History: Procedure Laterality Date BACK SURGERY COLON SURGERY resection, 2018, [facility] DAVINCI REPAIR HERNIA VENTRAL N/A 10/27/2021 Performed by Ridge Cedillo MD at [facility] DENTAL SURGERY pt had all teeth [...] mg, 1 mg, intravenous, Q2H PRN, Geoffrey Webber DO, 1 mg at 01/17/24 1023 sodium chloride 0.9 % infusion, 250 mL/hr, intravenous, Continuous, Geoffrey Webber DO, Last Rate: 250 mL/hr at 01/17/24 [...] contact ortho hot pager for any questions/concerns [phone] LUIS MCCARTHY PA-C 01/17/24 1112 I, ANG FIGUEROA MD, personally performed the face to face diagnostic evaluation on this patient. My findings are as follows: Patient seen evaluated in the emergency department. He was transferred from [place] for orthopedic care to [place]. He had a mechanical fall resulting in [...] for the medical standpoint. Ang Figueroa MD. [employer] Work Phone: 1(316) 134-509806-06-2024 History and physical note* Ang Figueroa MD [...] is a 53 y.o. male presents to [facility] c/o right hip pain after a [...] at outside hospital and was transferred to [facility] for[facility] management. Patient has no other complaints [...] (CMS-HCC) Depression Diabetes mellitus type 2, controlled ([facility]) Fibromyalgia, primary GERD (gastroesophageal reflux disease) Hyperlipidemia Hypertension Insulin-treated type 2 diabetes mellitus ([facility]) Joint pain Kidney stones Liver disease Low back pain Neck pain Obesity Osteoarthritis Visual impairment Past Surgical History: Procedure Laterality Date BACK SURGERY COLON SURGERY resection, 2018, [facility] DAVINCI REPAIR HERNIA VENTRAL N/A 10/27/2021 Performed by Ridge Cedillo MD at [facility] DENTAL SURGERY pt had all teeth [...] mg, 1 mg, intravenous, Q2H PRN, Geoffrey Webber DO, 1 mg at 01/17/24 1023 sodium chloride 0.9 % infusion, 250 mL/hr, intravenous, Continuous, Geoffrey Webber DO, Last Rate: 250 mL/hr at 01/17/24 [...] abnormalities in the right knee. Finalized by Sylevster Collins MD on 01/17/2024 3:49 AM LABS: [...] contact ortho hot pager for any questions/concerns [phone] LUIS MCCARTHY PA-C 01/17/24 9882 I, ANG FIGUEROA MD, personally performed the face to face diagnostic evaluation on this patient. My findings are as follows: Patient seen evaluated in the emergency department. He was transferred from [place] for orthopedic care to [place]. He had a mechanical fall resulting in [...] Closed fracture of right hip, initial encounter ([facility]) CHIEF COMPLAINT: Right hip pain SUBJECTIVE: Patient is a 53-year-old male with known Hx/o DM2, HTN, HLD, COPD, Chronic pain disorder, Fibromyalgia, GERD/Esophagitis, Colon cancer s/p sigmoid colectomy, Liver cirrhosis secondary to hepatitis C,Chronic thrombocytopenia, cervical radiculopathy related to C5-C7 herniated disc presents with mechanical fall and right hip pain initially to [facility] and transferred to [facility]. Patient awake oriented x3 does not be [...] Chronic cough Chronic pain disorder Colon cancer ([facility]) Colon cancer ([facility]) Depression Diabetes mellitus type 2, controlled ([facility]) Fibromyalgia, primary GERD (gastroesophageal reflux disease) Hyperlipidemia Hypertension Insulin-treated type 2 diabetes mellitus ([facility]) Joint pain Kidney stones Liver disease Low back pain Neck pain Obesity Osteoarthritis Visual impairment Hx/o Hepatitis-C previously treated in 2017. Cervical radiculopathy related to herniated disc C5-7. PAST SURGICAL HISTORY: Past Surgical History: Procedure Laterality Date BACK SURGERY COLON SURGERY resection, 2017, [facility] DAVINCI REPAIR HERNIA VENTRAL N/A 10/27/2021 Performed by Ridge Cedillo MD at [facility] pt had all teeth [...] fall and right hip pain initially to [facility] and transferred to [facility]. 1. Acute nondisplaced intertrochanteric right hip fracture due to mechanical fall. Orthopedic surgery consulted with likely plans for surgery tomorrow. Per RCRI cardiac risk index scores 1 point for insulin dependent diabetes, is class 2 risk with 6% 30 day risk of , [place] or cardiac arrest, non prohibitive can proceed with surgery. In settings of liver cirrhosis is CTP class A, MELD score 7, per Vocal-Kermit score has only 0.6%30 day mortality risk, [...] This note was completed using a voice visitor services representative system. Every effort was made to ensure accuracy. However, inadvertent computerized visitor services representative errors may be present. [facility] Progress note* Discharge Planning Note - JEWEL Crenshaw - 01/18/2024 10:29 AM EDT Images from the original note were not included. DISCHARGE PLANNING NOTE SW met with patient introduced self & role. Pt was alert, oriented during assessment. Pt was transferred to [facility] from [facility] where pt presented with leg and [...] Yes List Provided: Yes [facility]Port List Provided: [facility] Facility Initial DC Assessment Completed: Yes Patient Goals: Goals: Goals (pt-stated) Evaluation of progress towards goal: possible rehab placement vs home pending progress, recommendations and pt decision - JEWEL Crenshaw 01/18/24 10:33 AM [facility]06-06-2024 Hospital Discharge instructions* Discharge Instructions* Annmarie Marquez PA-C - 01/18/2024 10:29 AM EDT ORTHOPAEDIC DISCHARGE INSTRUCTIONS Diagnosis: right IT hip fracture Procedure: short IMN right hip Follow-Up Appointment: Dr. Figueroa on 02/01/24 @ 9:30AM Office Location: [place] [address] Call 911 immediately if you experience: Chest [...] and is not recommended. documented in this encounter[facility] Plan of care note * Plan of Care - Lian Silva RN - 01/18/2024 9:02 AM EDT Problem: Pain Goal: Patient goal is pain score less than 4, able to rest, and participant in treatment plan as appropriate Description: INTERVENTIONS: 1. Encourage patient or legal auto claim representative to report early pain and ask [...] per policy 9. Teach patient or legal auto claim representative interventions for comforting Outcome: Progressing Note: [...] at the bedside 7. Instruct patient/ patient auto claim representative about use of safety devices 8. Include patient/ patient auto claim representative in decisions related to safety Outcome: [...] hygiene technique 7. Identify and instruct patient/patient auto claim representative in use of appropriate isolation precautionsfor identified infection/symptoms 8. Provide and discuss with patient/patient auto claim representative on educational MDRO sheet 9. Encourage and monitor nutritional status daily and consult clinical appeals specialist if indicated 10. Implement neutropenic guidelines as needed 11. Review exposure to history of communicable disease and recent travel history on admission 12. Encourage annual influenza vaccine 13. Encourage pneumonia vaccine Outcome: Progressing Note: Evaluation of progress towards goal: Skin integrity remains in stable condition; remains w/o ss of infection, fever, pain, or increased discomfort. Problem: Knowledge Deficit Goal: Patient/patient auto claim representative demonstrates understanding of disease process, treatment [...] discharge planning process 5. Communicate referral to clinical trial educator as appropriate 6. Communicate referral to clinical appeals specialist as appropriate 7. Collaborate with case management/long term care social worker for discharge needs Outcome: Progressing Note: Evaluation of progress towards goal: Discharge planning in process; will continue to monitor for discharge needs. Problem: Moderate - High Risk Fall Score Description: Arredondo Fall Score of =/> 25 or indicated by [facility] Assessment Goal: Patient should be free from fall Description: Interventions: 1. [place] to environment 2. Hourly rounds addressing the [...] non-skid footwear 11. Teach patient and patient auto claim representative to maintain environment for safety and [...] (cane, walker) within reach 19. Request patient auto claim representative bring adaptive equipment/mobility aids from home or obtain and provide as needed 20. Consult pharmacy regarding effects of med's affecting mobility, cognition, and alternatives 21. Obtain physician order for PT if risk factors associated with mobility are present 22. Obtain physician order for OT as appropriate 23. Utilize diversional activities 24. Educate patient and patient auto claim representative how to maintain a safe environment during visitationtimes (notify nurse prior to leaving bedside) 25. Consider appropriateness of medical or non-medical collector 26. Set up voiding schedule as appropriate (every 2 hours) Outcome: Progressing Note: Evaluation of progress towards goal: Call light within reach. Remains free of fall or injury.Environment free of clutter. [facility] Nurse Note* Gin Palm RN - 01/18/2024 7:49 AM EDT Patient arrived in [facility] from [facility], awaiting transport. Patient denies any needs at this time. [facility] Progress note* PT/OT/FIELD IDENTIFICATION SPECIALIST - ALICIA Chavira - 01/18/2024 7:39 AM EDT Occupational Therapy CANCEL - Deferred Orders received for OT evaluation. Pt scheduled for hip fracture repair this date. Will check back post op [facility] Plan of care note* Plan of Care - Carin Contreras RN - 01/18/2024 5:30 AM EDT Problem: Moderate - High Risk Fall Score Description: [place] Fall Score of =/> 25 or indicated by [facility] Assessment Goal: Patient should be free from fall Description: Interventions: 1. [place] to environment 2. Hourly rounds addressing the [...] non-skid footwear 11. Teach patient and patient auto claim representative to maintain environment for safety and [...] (cane, walker) within reach 19. Request patient auto claim representative bring adaptive equipment/mobility aids from home or obtain and provide as needed 20. Consult pharmacy regarding effects of med's affecting mobility, cognition, and alternatives 21. Obtain physician order for PT if risk factors associated with mobility are present 22. Obtain physician order for OT as appropriate 23. Utilize diversional activities 24. Educate patient and patient auto claim representative how to maintain a safe environment during visitationtimes (notify nurse prior to leaving bedside) 25. Consider appropriateness of medical or non-medical collector 26. Set up voiding schedule as appropriate (every 2 hours) Outcome: Progressing Note: Evaluation of progress towards goal: Patient remains fall free at this time. Fall precautionsin place. [facility]06-05-[facility]24 Emergency department Note* Michelle De La O RN - 01/17/2024 3:02 PM EDT Bed: 34 Expected date: Expected time: Means of arrival: Comments: B1 Ha-- pt still in room, should be headed up shortly [facility]06-05-2024 Emergency department Note* Vivek Harrison RN - 01/17/2024 3:02 PM EDT Bed: 33 Expected date: Expected time: Means of arrival: Comments: T4 [facility]06-05-2024 Emergency department Note* Michelle De La O RN - 01/17/2024 3:02 PM EDT Bed: 34 Expected date: Expected time: Means of arrival: Comments: B1 Ha-- pt still in room, should be headed [...] Expected date: Expected time: [facility]: 53 YO M [place] Ruth Dye 53 yrs M (1970) [place] [facility] tripped over dog has non displaced hip fracture Dr Jenkins wants to plan surgery today, Dr Wahl ED med control updated on patient also Palacios placed with 2L output Dilaudid given 121/91 80 HR 99%RA RR 16 EMS 82 HR 96%RA 127/87 ETA 15 min [facility] History and physical note* Stephen Hannah MD - 01/17/2024 11:03 AM EDT Principal Problem: Closed fracture of right hip, initial encounter ([facility]) CHIEF COMPLAINT: Right hip pain SUBJECTIVE: Patient is a 53-year-old male with known Hx/o DM2, HTN, HLD, COPD, Chronic pain disorder, Fibromyalgia, GERD/Esophagitis, Colon cancer s/p sigmoid colectomy, Liver cirrhosis secondary to hepatitis C,Chronic thrombocytopenia, cervical radiculopathy related to C5-C7 herniated disc presents with mechanical fall and right hip pain initially to [facility] and transferred to [facility]. Patient awake oriented x3 does not be [...] Chronic cough Chronic pain disorder Colon cancer ([facility]) Colon cancer ([facility]) Depression Diabetes mellitus type 2, controlled ([facility]) Fibromyalgia, primary GERD (gastroesophageal reflux disease) Hyperlipidemia Hypertension Insulin-treated type 2 diabetes mellitus (CMS-HCC) Joint pain Kidney stones Liver disease Low back pain Neck pain Obesity Osteoarthritis Visual impairment Hx/o Hepatitis-C previously treated in 2017. Cervical radiculopathy related to herniated disc C5-7. PAST SURGICAL HISTORY: Past Surgical History: Procedure Laterality Date BACK SURGERY COLON SURGERY resection, 2018, [facility] DAVINCI REPAIR HERNIA VENTRAL N/A 10/27/2021 Performed by Ridge Cedillo MD at [facility] pt had all teeth [...] fall and right hip pain initially to [facility] and transferred to [facility]. 1. Acute nondisplaced intertrochanteric right hip fracture due to mechanical fall. Orthopedic surgery consulted with likely plans for surgery tomorrow. Per RCRI cardiac risk index scores 1 point for insulin dependent diabetes, is class 2 risk with 6% 30 day risk of , [place] or cardiac arrest, non prohibitive can proceed with surgery. In settings of liver cirrhosis is CTP class A, MELD score 7, per Vocal-Kermit score has only 0.6%30 day mortality risk, [...] This note was completed using a voice visitor services representative system. Every effort was made to ensure accuracy. However, inadvertent computerized visitor services representative errors may be present. [employer] Work Phone: [phone]) 690-593506-05-2024 Consult note* Ang Figueroa MD - 01/17/2024 10:58 AM EDT Images from the original note were not included. Chief complaint: right hip pain HPI: Ruth Smith is a 53 y.o. male [facility] c/o right hip pain after a [...] at outside hospital and was [facility]. Patient has no other complaints [...] Chronic cough Chronic pain disorder Colon cancer ([facility]) Colon cancer ([facility]) Depression Diabetes mellitus type 2, controlled ([facility]) Fibromyalgia, primary GERD (gastroesophageal reflux disease) Hyperlipidemia Hypertension Insulin-treated type 2 diabetes mellitus ([facility]) Joint pain Kidney stones Liver disease Low back pain Neck pain Obesity Osteoarthritis Visual impairment Past Surgical History: Procedure Laterality Date BACK SURGERY COLON SURGERY resection, 2018, [facility] DAVINCI REPAIR HERNIA VENTRAL N/A 10/27/2021 Performed by Ridge Cedillo MD at [facility] pt had all teeth [...] mg, 1 mg, intravenous, Q2H PRN, Geoffrey Webber DO, 1 mg at 01/17/24 1023 sodium chloride 0.9 % infusion, 250 mL/hr, intravenous, Continuous, Geoffrey Webber DO, Last Rate: 250 mL/hr at 01/17/24 [...] contact ortho hot pager for any questions/concerns [phone] LUIS MCCARTHY PA-C 01/17/24 1112 I, ANG FIGUEROA MD, personally performed the face to face diagnostic evaluation on this patient. My findings are as follows: Patient seen evaluated in the emergency department. He was transferred [place] for orthopedic care to [place]. He had a mechanical fall resulting in [...] for the medical standpoint. Ang Figueroa MD. [facility] Center[facility] Preference [id number] Progress note* Situational Awareness - Jeff Martin MD - 01/17/2024 10:57 AM EDT ED called Report to [facility] for Admission Pt transferred to for Ortho, morbid obesity, fall with hip fracture requiring OR, plan for tomorrow. Background HLD, IDDM2. No h/o CAD. Reported no other hemodynamic or acute medical concerns at this time. JEFF MARTIN MD [facility] CenterJiangyin [employer] Work Phone: [phone] Emergency department Note* Coral Sanford RN - 01/17/2024 10:38 AM EDT Per manav [place], pt will go to surgery 01/17. [facility] CenterUnited Preference [id number] Emergency department Note* Vivek Harrison RN - 01/17/2024 10:01 AM EDT Bed: B1 Expected date: Expected time: [facility] Comments: 53 YO M Ruth Farmer 53 yrs M (1970) [facility] tripped over dog has non displaced hip fracture Dr Jenkins wants to plan surgery today, Dr Wahl ED med control updated on patient also Palacios placed with 2L output Dilaudid given 121/91 80 HR 99%RA RR 16 EMS 82 HR 96%RA 127/87 ETA 15 min [employer] [id number] Evaluation note* Encounter Date Diagnosis Assessment Notes Treatment Notes Treatment Clinical Notes Aug, Irritable bowel syndrome with diarrhea (ICD-10 - K58.0) [employer] Other 12-28-2023 Evaluation note* Encounter Date Diagnosis Assessment Notes Treatment Notes Treatment Clinical Notes Jul, GERD (gastroesophageal reflux disease) (ICD-10 - K21.9) [employer] Other 10-30-2023 Evaluation note* Encounter Date Diagnosis Assessment Notes Treatment Notes Treatment Clinical Notes May, Irritable bowel syndrome with diarrhea (ICD-10 - K58.0) [employer] Other 09-19-2023 Evaluation note* Encounter Date Diagnosis Assessment Notes Treatment Notes Treatment Clinical Notes Apr, GERD (gastroesophageal reflux disease) (ICD-10 - K21.9) [employer] Other 08-08-2023 [facility]* Encounter Date Diagnosis Assessment [...] Records release for blood work from PCP. [employer] Other 01-11-2023 Evaluation note* Encounter Date [...] educated on the risks and benefits of penitentiary opioid use. Percocet was refilled today, opioid [...] future. Aug, Other UDS performe d through [employer] today, will await confirmatory results. [employer] Other 01-06-2023 Evaluation note* Encounter Date [...] (ICD-10 - G89.29) Continue medications as prescribed [employer] Other [id number] [facility] Evaluation note* Encounter Date Diagnosis Assessment [...] educated on the risks and benefits of site engineer opioid use. Percocet was refilled today, opioid risk assessment was done as well as pill count. Patient is compliant with opioid medication. The patient denies any opioid related side effects. [employer] Other 11-15-2022 Evaluation note* Encounter Date [...] relief to lower extremities following caudal epidural. 15 Jun, 2022 Lumbosacral spondylosis (ICD-10 - M47.817) In the future if the pain persists, we can consider proceeding with a lumbar facet MBB followed by a RFA if applicable under fluoroscopic guidance. Jun, Neuropathy (ICD-10 - G62.9) Continue taking Gabapentin as prescribed. Jun, Chronic pain (ICD-10 - G89.29) Continue medications as prescribed [employer] Other 10-19-2022 [facility]10-[facility] Evaluation note* Encounter Date Diagnosis Assessment [...] educated on the risks and benefits of site engineer opioid use. Percocet was refilled today, opioid risk assessment was done as well as pill count. Patient is compliant with opioid medication. The patient denies any opioid related side effects. [employer] Other 09-14-2022 Evaluation note* Encounter Date [...] G89.29) I recommend patient increase Gabapentin to [employer] Other 08-18-2022 Evaluation note* Encounter Date [...] negative findings were considered in medical decision-making. 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 As such I [...] (degenerative disc disease), lumbosacral (ICD-10 - M51.37) [employer] Other evaluation noteNo InformationNort [facility]emat Other Evaluation noteNort [employer] Other Evaluation noteNo assessment information available [facility] Work Phone: Evaluation note* Diagnosis Onset Date Resolution Status Disorder of intervertebral disc at C5-C6 level acute [facility] Work Phone: Evaluation note* Diagnosis Onset Date Resolution Status Arthropathy of both shoulders acute Disorder of intervertebral disc at C5-C6 level acute Cirrhosis acute Diarrhea acute GERD (gastroesophageal reflux disease) acute IBS (irritable bowel syndrome) acute [facility] Work Phone: Evaluation note* Diagnosis Onset Date Resolution Status Cirrhosis acute GERD (gastroesophageal reflux disease) acute Irritable bowel syndrome with diarrhea acute [facility] Work Phone: Evaluation note* Diagnosis Paresthesia- Primary Disturbance of skin sensation [facility] Diagnosis Lumbar radiculopathy, chronic documented in this encounter [facility]* Diagnosis Lumbar radiculopathy, chronic documented in this encounter [facility]* Diagnosis Lumbar radiculopathy, chronic documented in this encounter [facility]* Diagnosis Lumbar radiculopathy, chronic- Primary History of lumbar surgery Lumbar spondylosis Lumbosacral spondylosis without myelopathy Bilateral hand pain documented in this encounter [facility]* Diagnosis Closed displaced intertrochanteric fracture of right femur ([facility])- Primary Closed displaced intertrochanteric fracture of right femur with routine healing, subsequent encounter- Primary Closed displaced intertrochanteric fracture of right femur, initial encounter ([facility]) documented in this encounter [facility]* Diagnosis Closed fracture of right hip, initial encounter ([facility])- Primary Closed fracture of right hip, initial encounter ([facility]) Closed displaced intertrochanteric fracture of right femur ([facility]) documented in this encounter [facility]* Diagnosis Closed displaced intertrochanteric fracture of right femur, sequela- Primary Closed displaced subtrochanteric fracture of right femur, initial encounter ([facility]) [facility] Diagnosis Closed fracture of right hip, initial encounter ([facility])- Primary Closed fracture of right hip, initial encounter ([facility]) Periprosthetic fracture of hip, sequela Periprosthetic fracture of hip, subsequent encounter Myah-prosthetic fracture around prosthetic hip Myah-prosthetic fracture around prosthetic joint documented in this encounter [facility]* Diagnosis Closed fracture of right hip, initial encounter ([facility]) documented in this encounter [facility]* Diagnosis Closed fracture of right hip, initial encounter ([facility]) [facility] Diagnosis Localized swelling of right lower extremity- Primary Periprosthetic fracture of hip, subsequent encounter documented in this encounter [facility]* Diagnosis Periprosthetic fracture of hip, subsequent encounter- Primary documented in this encounter [facility] note* Diagnosis Closed displaced intertrochanteric fracture of right femur with routine healing, subsequent encounter- Primary Trochanteric bursitis of right hip [facility] Diagnosis Closed fracture of right hip, initial encounter ([facility]) [facility] Diagnosis Closed fracture of right hip, initial encounter ([facility]) [facility] Diagnosis Disorder of sacrum- Primary Disorders of sacrum documented [facility] Diagnosis Closed displaced intertrochanteric fracture of right femur with routine healing, subsequent encounter- Primary [facility] Diagnosis Right knee pain, unspecified chronicity- Primary [facility] Diagnosis Right knee pain, unspecified chronicity- Primary [facility]* Diagnosis Back pain, unspecified back location, unspecified back pain laterality, unspecified chronicity- Primary [facility]* Diagnosis Closed displaced intertrochanteric fracture of right femur with routine healing, subsequent encounter- Primary [facility]* Diagnosis Lumbar radiculopathy, chronic- Primary Left cervical radiculopathy Bilateral hand pain Bilateral hand numbness Disturbance of skin sensation Lumbar spondylosis Lumbosacral spondylosis without myelopathy Cervical spondylosis Cervical spondylosis without myelopathy Chronic midline low back pain without sciatica History of lumbar surgery Anxiety Anxiety state, unspecified [facility]* Diagnosis Lumbar radiculopathy, chronic [facility]* Diagnosis Trochanteric bursitis of right hip- Primary documented in this encounter [facility]* Diagnosis Acute right-sided low back pain with right-sided sciatica- Primary [facility] this [facility]* Diagnosis Radicular syndrome of right leg- Primary Thoracic or lumbosacral neuritis or radiculitis, unspecified History of lumbar laminectomy Diabetic peripheral neuropathy (HCC) Type II or unspecified type diabetes mellitus with neurological manifestations, not stated as uncontrolled History of total right hip replacement Thrombocytopenia Thrombocytopenia, unspecified [facility]* Diagnosis Malignant neoplasm of colon, unspecified part of colon (HCC)- Primary Thrombocytopenia Thrombocytopenia, unspecified documented in this encounter [facility]* Diagnosis Radicular syndrome of right leg- [...] stated as uncontrolled documented in this encounter [facility]* Diagnosis Benign prostatic hyperplasia, unspecified whether lower urinary tract symptoms present- Primary Difficulty urinating Other symptoms involving urinary system documented in this encounter [facility]* Diagnosis Onset Date Resolution Status Admit Date Cirrhosis acute December 05 1:16pm Esophageal varices acute December 05, 2024 1:16pm GERD (gastroesophageal reflu x disease) acute December 05, 2024 1:16pm Hepatic encephalopathy acute Ap 2024 1:16pm Irritable bowel syndrome wit h diarrhea acute December 05, 2024 1:16pm Personal history of colon cancer acu te December 05, 2024 1:16pm [facility] Work Phone: Evaluation note* Diagnosis Radiculopathy, lumbar region- Primary Thoracic or lumbosacral neuritis or radiculitis, unspecified Diabetic peripheral neuropathy (HCC) Type II or unspecified type diabetes mellitus with neurological manifestations, not stated as uncontrolled Thrombocytopenia Thrombocytopenia, unspecified History of total right hip replacement H/O lumbar discectomy Personal history of surgery to other organs Chronic pain syndrome documented in this encounter [facility]* Diagnosis Benign prostatic hyperplasia, unspecified whether lower urinary tract symptoms present- Primary Difficulty urinating Other symptoms involving urinary system Difficulty urinating- Primary Other symptoms involving urinary system Preop examination- Primary Unspecified pre-operative examination Hypertension, unspecified type Type 2 diabetes mellitus with other circulatory complication, with long-term current use of insulin ([facility]) Preop examination Unspecified pre-operative examination Hypertension, unspecified type Type 2 diabetes mellitus with other circulatory complication, with long-term current use of insulin ([facility]) Difficulty urinating Other symptoms involving urinary system documented in this encounter [facility]* Diagnosis Thrombocytopenia- Primary Thrombocytopenia, unspecified Malignant neoplasm of colon, unspecified part of colon (HCC) Elevated carcinoembryonic antigen (CEA) Elevated carcinoembryonic antigen [CEA] documented in this encounter [facility] note* Diagnosis Radiculopathy, lumbar region Thoracic or lumbosacral neuritis or radiculitis, unspecified Diabetic peripheral neuropathy (HCC) Type II or unspecified type diabetes mellitus with neurological manifestations, not stated as uncontrolled Thrombocytopenia Thrombocytopenia, unspecified History of total right hip replacement H/O lumbar discectomy Personal history of surgery to other organs Polyneuropathy Unspecified hereditary and idiopathic peripheral neuropathy documented in this encounter [facility] note* Diagnosis Benign prostatic hyperplasia, unspecified whether lower urinary tract symptoms present- Primary Difficulty urinating Other symptoms involving urinary system Difficulty urinating- Primary Other symptoms involving urinary system documented in this encounter [facility]* Diagnosis Radiculopathy, lumbar region- Primary Thoracic or lumbosacral neuritis or radiculitis, unspecified Diabetic peripheral neuropathy (HCC) Type II or unspecified type diabetes mellitus with neurological manifestations, not stated as uncontrolled History of total right hip replacement H/O lumbar discectomy Personal history of surgery to other organs Polyneuropathy Unspecified hereditary and idiopathic peripheral neuropathy documented in this encounter [facility] general Narrative - Reported* Type Description Date [...] Morrison 06/14/19 Hospitalization History See Sx Hx [employer] Other History general Narrative - ReportedN[facility] Other History general Narrative - Reported* Type [...] hernia repair Hospitalization History See Sx Hx [employer] Other Hospital Discharge instructions Additional Instructions [...] problems. -Follow up with PCP. -Office number [phone].[facility] Work Phone: Hospital Discharge instructionsAmbulatory Orders* Referral to Orthopedic Surgery Location: None Selected [facility] Work Phone: InstructionsNot on filedocumented in [...] be sent through Care Everywhere. * Cystoscopy ([place]) documented in this encounterProMedisd Health SystemReason for visit NarrativeONE WEEK FOLLOW UP AFTER PROCEDURE, Patient consents to be evaluated and treated via telemedicine, risks benefits and alternatives explained., Patient at home virtually seen from office.[employer] Other Reason for visit Narrative* Other Medical (Routine) - Closed Specialty Diagnoses / Procedures Referred By Contac t Referred To Contact Neurology Diagnoses Radiculopathy, cervical region Pain in right hand Pain in left hand Anesthesia of skin Spondylosis without myelopathy or radiculopathy, cervical region Procedures [place] NEEDLE EMG EA EXTREMTY W/PARASPINL AREA COMPLETE [place] NERVE CONDUCTION STUDIES 9-10 STUDIES Marcell Badillo MD [address] [place] [address] Phone: tel: fax: Virgil Ashford MD [address] [place] [address] Phone: tel: fax: Referral ID Status Reason Start Date Expiration Date V isits Requested Visits Authorized [id number] Closed Perform Procedure 07/19/2024 01/15/2025 1 1 [facility] Healthcare Summary Purpose Family History No [...] Advance Directives Yes November 30, 2 024 9:37am Date Activated Date Inactivated Comments [...] Documents on File Type Date Recorded 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 Advance Directive(s) 04/06/2018 2:06 PM Documents on File Type Date Recorded 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 Advance Directive(s) 04/06/2018 2:06 PM [...] operating room: INJECTION BLOCK SACROILIAC JOINT RIGHT Kaye Sauceda, PEDIATRIC ONCOLOGY NURSE-OPTICAL ENGINEER [address] [place] [address] Referral ID Status Reason Start Date Expiration Date V isits Requested Visits Authorized [id number] Pending Review 04/02/2024 04/02/2025 1 1 Specialty Diagnoses / Procedures Referred By Contac t Referred To Contact Rehabilitation Diagnoses Closed displaced intertrochanteric fracture of right femur with routine healing, subsequent encounter Rehana Gibbs PA-C [address] [place] [address] Referral ID Status Reason Start Date Expiration Date Visits Requested Visits Authorized [id number] Pending Review Specialty Services Required 03/14/2024 09/14/2024 1 1 Specialty Diagnoses / Procedures Referred By Contac t Referred To Contact Diagnoses Localized swelling of right lower extremity Procedures Vas venous duplex lwr single right Annmarie Marquez, PATimC [address] [place] [address] Referral ID Status Reason Start Date Expiration Date V isits Requested Visits Authorized [id number] Pending Review 02/22/2024 02/21/2025 1 1 Specialty Diagnoses / Procedures Referred By Contac t Referred To Contact Procedures Discharge Follow-Up Leatha Saldivar MD [address] [place] [address] Referral ID Status Reason Start Date Expiration Date V isits Requested Visits Authorized [id number] Pending Review 02/03/2024 02/02/2025 1 1 Specialty Diagnoses / Procedures Referred By Contac t Referred To Contact Procedures Adult diet Leatha Saldivar MD [address] [place] [address] Referral ID Status Reason Start Date Expiration Date V isits Requested Visits Authorized [id number] Pending Review 02/03/2024 02/02/2025 1 1 Specialty Diagnoses / Procedures Referred By Contac t Referred To Contact Diagnoses Periprosthetic fracture of hip, subsequent encounter Procedures Follow-up with primary care provider Leatha Saldivar MD [address] [place] [address] Referral ID Status Reason Start Date Expiration Date V isits Requested Visits Authorized [id number] Pending Review 02/03/2024 02/02/2025 1 1 Specialty Diagnoses / Procedures Referred By Contac t Referred To Contact Behavioral Health Diagnoses Periprosthetic fracture of hip, subsequent encounter Leatha Saldivar MD [address] [place] [address] Referral ID Status Reason Start Date Expiration Date Visits Requested Visits Authorized [id number] Pending Review Specialty Services Required 02/03/2024 02/02/2025 1 1 Specialty Diagnoses / Procedures Referred By Contac t Referred To Contact Occupational Therapy Diagnoses Periprosthetic fracture of hip, subsequent encounter Leatha Saldivar MD [address] [place] [address] Referral ID Status Reason Start Date Expiration Date Visits Requested Visits Authorized [id number] Pending Review Specialty Services Required 02/03/2024 08/04/2024 12 12 Specialty Diagnoses / Procedures Referred By Contac t Referred To Contact Rehabilitation Diagnoses Periprosthetic fracture of hip, subsequent encounter Leatha Saldivar MD [address] [place] [address] Referral ID Status Reason Start Date Expiration Date Visits Requested Visits Authorized [id number] Pending Review Specialty Services Required 02/03/2024 08/04/2024 12 12 Specialty Diagnoses / Procedures Referred By Contac t Referred To Contact Diagnoses Closed fracture of right hip, initial encounter ([facility]) Periprosthetic fracture of hip, sequela Procedures Follow-up with primary care provider Leatha Saldivar MD [address] [place] [address] Referral ID Status Reason Start Date Expiration Date V isits Requested Visits Authorized [id number] Pending Review 02/02/2024 02/01/2025 1 1 Specialty Diagnoses / Procedures Referred By Contac t Referred To Contact Procedures Discharge Follow-Up Abad Diallo DO [address] [facility] [place] [address] Referral ID Status Reason Start Date Expiration Date V isits Requested Visits Authorized [id number] Pending Review 01/22/2024 01/21/2025 1 1 Specialty Diagnoses / Procedures Referred By Contac t Referred To Contact Diagnoses Closed fracture of right hip, initial encounter ([facility]) Procedures Follow-up with primary care provider Abad Diallo DO [address] [facility] [place] [address] Referral ID Status Reason Start Date Expiration Date V isits Requested Visits Authorized [id number] Pending Review 01/22/2024 01/21/2025 1 1 Reason Evaluate and Treat Diagnosis 1 Idiopathic periphera l neuropathy (G60.9) Referral Organization [facility] Referring Provider First Name Bird Referring Provider Last Name Yany Referring Provider Specialty Neurosurger y Referred Organization [facility] Referred Provider Erick Naylor Referred Address [address] [place], [place],[address] Referred Provider Specialty Neurology Referral Priority Routine Reason BLE EMG Diagnosis 1 Idiopathic periphera l neuropathy (G60.9) Referral Organization [facility] Referring Provider First Name Bird Referring Provider Last Name Yany Referring Provider Specialty Neurosurger y Referred Organization [facility] Referred Provider Virgil Ashford Referred Address [address] [place], [place],[address] Referred Provider Specialty Neurology Referral Priority Routine [...] section and content) DATE CREATED AUTHOR 03/14/2018 [facility] DATE CREATED AUTHOR AUTHOR'S ORGANIZ ATION 05/29/2018 [facility] DATE CREATED AUTHOR AUTHOR'S ORGANIZ ATION 05/20/2020 [facility] DATE CREATED AUTHOR AUTHOR'S ORGANIZ ATION 02/05/2021 [facility] DATE CREATED AUTHOR AUTHOR'S ORGANIZ ATION 08/07/2024 [facility] EPIC DATE CREATED AUTHOR AUTHOR'S ORGANIZ ATION 11/09/[address] [facility] DATE CREATED AUTHOR AUTHOR'S ORGANIZ ATION 03/25/2025 [facility] DATE CREATED AUTHOR AUTHOR'S ORGANIZ ATION 05/03/2025 [facility] DATE CREATED AUTHOR AUTHOR'S ORGANIZ ATION 05/06/2025 [facility] DATE CREATED AUTHOR AUTHOR'S ORGANIZ ATION 05/06/2025 [facility] DATE CREATED AUTHOR AUTHOR'S ORGANIZ ATION 05/09/2025 [facility] DATE CREATED AUTHOR AUTHOR'S ORGANIZ ATION 05/18/2025 [facility] REASON FOR VISIT (unrecogniz ed [...] Closed fracture of right hip, initial encounter ([facility] Jeff Martin MD [address] [place] [address] Referral ID Status Reason Start Date Expiration Date Visits Re quested Visits Authorized [id number] 1 1 Reason Comments Post-op S/p TFNA Right IT Hi p Fx,S/p fall has new fx around nail, r femur fall Post-op Reason Comments Fall Evaluation of Abnormal Diagnostic Test Specialty Diagnoses / Procedures Referred By Contac t Referred To Contact Diagnoses Closed fracture of right hip, initial encounter ([facility]) Leatha Saldivar MD [address] [place] [address] Referral ID Status Reason Start Date Expiration Date Visits Re quested Visits Authorized [id number] 1 1 Reason Comments Med Refill Reason [...] OFFICE/OUTPATIENT NEW HIGH MDM 60 MINUTES Martha Faulkner APRN.OPTICAL ENGINEER [address] [place] [address] Phone: tel: fax: Referral ID Status Reason Start Date Expiration Date V isits Requested Visits Authorized [id number] Closed PCP Requested Referral 11/08/2024 02/06/2025 1 1 Reason Comments Colon Cancer Specialty Diagnoses / Procedures Referred By Contac t Referred To Contact Hematology Diagnoses Thrombocytopenia Procedures CONSULT TO HEMATOLOGY OFFICE/OUTPATIENT NEW HIGH MDM 60 MINUTES Abrahan Rinaldi MD [address] [place] [address] Phone: tel: fax: Referral ID Status Reason Start Date Expiration Date V isits Requested Visits Authorized [id number] Closed PCP Requested Referral 11/22/2024 11/22/2025 1 1 Reason Comments Schedule Injection Reason Comments Difficulty Urinating Specialty Diagnoses / Procedures Referred By Contac t Referred To Contact Urology Diagnoses Difficulty urinating Francisca Wade MD [address] [place] [address] Phone: tel: fax: [facility] [address] [place] [address] Phone: tel: fax: Referral ID Status Reason Start Date Expiration Date Visits Requested Visits Authorized [id number] Pending Review Specialty Services Required 10/11/2024 10/11/2025 [...] 01, 2023 End: November 01, 2023 Jun Maria Teresa , JOHN Emergency Provider Active Start: November 01, 2023 [...] June 05, 2024 End: June 05, 2024 Sales And Marketing Executive Relationship Specialty Start Date End Date Unallocated, Diana Matos MD [address] [place], [place] [address] [address] PCP - General Family Medicine 12/12/23 Diane Mcgrath NP [address] [place] [address] Referring Physician Family Medicine 12/12/23 Marcell Badillo MD [address] [place] [address] Referring Physician Family Medicine 07/19/24 Sales And Marketing Executive Relationship Specialty Start Date End Date Unallocated, MD Tennille Alarcon[address] [place] [address] PCP - General Family Medicine 12/12/23 Diane Mcgrath NP [address] [place] [address] Referring Physician Family Medicine 12/12/23 Marcell Badillo MD [address] [place] [address] Referring Physician Family Medicine 07/19/24 Sales And Marketing Executive Relationship Specialty Start Date End Date Francisca Wade MD [address] [facility] [place] [address] PCP - General Internal Medicine 07/18/24 Sales And Marketing Executive Relationship Specialty Start Date End Date Francisca Wade MD [address] [facility] [place] [address] PCP - General Internal Medicine 07/18/24 Team Status: Active Member Role Status Dates Francisca Wade MD Primary Care Provider Active Team Status: Inactive Member Role Status Dates Marcell Badillo NP-C Attending Provider Active S tart: August 27, 2024 End: August 27, 2024 Francisca Wade MD Primary Care Provider Active S tart: August 27, 2024 End: August 27, 2024 Sales And Marketing Executive Relationship Specialty Start Date End Date Francisca Wade MD [address] [place] [address] PCP - General Internal Medicine 07/18/24 Sales And Marketing Executive Relationship Specialty Start Date End Date Francisca Wade MD [address] [place] [address] PCP - General Internal Medicine 07/18/24 Sales And Marketing Executive Relationship Specialty [place] [address] [place] [address] PCP - General Internal Medicine 07/18/24 Sales And Marketing Executive Relationship Specialty Start Date End Date Jd Du PA-C [address] [place] [address] PCP - General Physician Loan Processor 07/31/17 Sales And Marketing Executive Relationship Specialty Start Date End Date Jd Du PA-C [address] [place] [address] PCP - General Physician Loan Processor 07/31/17 Sales And Marketing Executive Relationship Specialty Start Date End Date Jd Du PA-C [address] [place] [address] PCP - General Physician Loan Processor 07/31/17 Sales And Marketing Executive Relationship Specialty Start Date End Date Jd Du PA-C [address] [place] [address] PCP - General Physician Loan Processor 07/31/17 Sales And Marketing Executive Relationship Specialty Start Date End Date Jd Du PA-C [address] [place] [address] PCP - General Physician Loan Processor 07/31/17 Sales And Marketing Executive Relationship Specialty Start Date End Date Jd Du PA-C [address] [place] [address] PCP - General Physician Loan Processor 07/31/17 Sales And Marketing Executive Relationship Specialty Start Date End Date Jd Du PA-C [address] [place] [address] PCP - General Physician Loan Processor 07/31/17 Sales And Marketing Executive Relationship Specialty Start Date End Date Jd Du PA-C [address] [place] [address] PCP - General Physician Loan Processor 07/31/17 Sales And Marketing Executive Relationship Specialty Start Date End Date Jd Du PA-C [address] [place] [address] PCP - General Physician Loan Processor 07/31/17 Sales And Marketing Executive Relationship Specialty Start Date End Date Diane Mcgrath, PEDIATRIC ONCOLOGY NURSE-COMMUNITY RELATIONS ADVISOR [address] [place] [address] PCP - General 03/14/24 Sales And Marketing Executive Relationship Specialty Start Date End Date Diane Mcgrath, PEDIATRIC ONCOLOGY NURSE-COMMUNITY RELATIONS ADVISOR [address] [place] [address] PCP - General 03/14/24 Sales And Marketing Executive Relationship Specialty Start Date End Date Diane Mcgrath, PEDIATRIC ONCOLOGY NURSE-COMMUNITY RELATIONS ADVISOR [address] [place] [address] PCP - General 03/14/24 Sales And Marketing Executive Relationship Specialty Start Date End Date Diane Mcgrath, PEDIATRIC ONCOLOGY NURSE-COMMUNITY RELATIONS ADVISOR [address] [place] [address] PCP - General 03/14/24 Sales And Marketing Executive Relationship Specialty Start Date End Date Diane Mcgrath, PEDIATRIC ONCOLOGY NURSE-COMMUNITY RELATIONS ADVISOR [address] [place] [address] PCP - General 03/14/24 Sales And Marketing Executive Relationship Specialty Start Date End Date Diane Mcgrath, PEDIATRIC ONCOLOGY NURSE-COMMUNITY RELATIONS ADVISOR [address] [place] [address] PCP - General Family Medicine 06/07/24 Sales And Marketing Executive Relationship Specialty Start Date End Date Diane Mcgrath, PEDIATRIC ONCOLOGY NURSE-COMMUNITY RELATIONS ADVISOR [address] [place], [place] [address] PCP - General Family Medicine 06/07/24 Sales And Marketing Executive Relationship Specialty Start Date End Date Francisca Wade MD [address] [place] [address] PCP - General Internal Medicine 07/18/24 Sales And Marketing Executive Relationship Specialty Start Date End Date Francisca Wade MD [address] [place] [address] PCP - General Internal Medicine 07/18/24 Sales And Marketing Executive Relationship Specialty Start Date End Date Francisca Wade MD [address] [place] [address] PCP - General Internal Medicine 07/18/24 Sales And Marketing Executive Relationship Specialty Start Date End Date Jd Du PA-C [address] [place], [place] [address] [facility] [place] [address] PCP - General Internal Medicine 04/09/18 Jun Arriola DO Physician Hematology 03/26/18 Lorie Ozuna, ELIAS [address] [facility] [place] [address] Cargo And Ramp Services Manager 03/26/18 Gianna Hodge APRN.OPTICAL ENGINEER [address] [place] [address] Nurse Practitioner Hematology/Oncology 03/26/18 Sales And Marketing Executive Relationship Specialty Start Date End Date Jd Du PA-C [address] [facility] [place] [address] PCP - General Internal Medicine 04/09/18 Jun Arriola DO Physician Hematology 03/26/18 Lorie Ozuna RN [address] [facility] [place] [address] Cargo And Ramp Services Manager 03/26/18 Gianna Hodge, JOHN.OPTICAL ENGINEER [address] [facility] [place] [address] Nurse Practitioner Hematology/Oncology 03/26/18 Sales And Marketing Executive Relationship Specialty Start Date End Date Jd Du PA-C [address] [facility] [place] [address] PCP - General Internal Medicine 04/09/18 Jun Arriola DO Physician Hematology 03/26/18 Lorie Ozuna RN [address] [facility] [place] [address] Cargo And Ramp Services Manager 03/26/18 Gianna Hodge, PEDIATRIC ONCOLOGY NURSE.OPTICAL ENGINEER [address] [facility] [place] [address] Nurse Practitioner Hematology/Oncology 03/26/18 Sales And Marketing Executive Relationship Specialty Start Date End Date Jd Du PA-C [address] [facility] [place] [address] PCP - General Internal Medicine 04/09/18 Jun Arriola DO Physician Hematology 03/26/18 Lorie Ozuna RN [address] [facility] [place] [address] Cargo And Ramp Services Manager 03/26/18 Gianna Hodge, PEDIATRIC ONCOLOGY NURSE.OPTICAL ENGINEER [address] [facility] [place] [address] Nurse Practitioner Hematology/Oncology 03/26/18 Sales And Marketing Executive Relationship Specialty Start Date End Date Jd Du PA-C [address] [place] [address] PCP - General Internal Medicine 04/09/18 Jun Arriola DO Physician Hematology 03/26/18 Lorie Ozuna RN [address] [place] [address] Cargo And Ramp Services Manager 03/26/18 Gianna Hodge, PEDIATRIC ONCOLOGY NURSE.OPTICAL ENGINEER [address] [place] [address] Nurse Practitioner Hematology/Oncology 03/26/18 Sales And Marketing Executive Relationship Specialty Start Date End Date Jd Du PA-C [address] [place] [address] PCP - General Internal Medicine 04/09/18 Jun Arriola DO Physician Hematology 03/26/18 Lorie Ozuna RN [address] [facility] [place] [address] Cargo And Ramp Services Manager 03/26/18 Gianna Hodge, PEDIATRIC ONCOLOGY NURSE.OPTICAL ENGINEER [address] [facility] [address] Nurse Practitioner Hematology/Oncology 03/26/18 Sales And Marketing Executive Relationship Specialty Start Date End Date Francisca Wade MD [address] [place] [address] PCP - General Internal Medicine 07/18/24 Team [...] December 12, 2024 End: December 12, 2024 Sales And Marketing Executive Relationship Specialty Start Date End Date Francisca Wade MD [address] [place] [address] PCP - General Internal Medicine 12/16/24 Jun Arriola DO Physician Hematology 03/26/18 Lorie Ozuna, ELIAS [address] [facility] [place] [address] Cargo And Ramp Services Manager 03/26/18 Gianna Hodge, JOHN.OPTICAL ENGINEER [address] [facility] [address] Nurse Practitioner Hematology/Oncology 03/26/18 Sales And Marketing Executive Relationship Specialty Start Date End Date Francisca Wade MD [address] [place] [address] PCP - General Internal Medicine 12/16/24 Jun Arriola DO Physician Hematology 03/26/18 Lorie Ozuna RN [address] [facility] [place] [address] Cargo And Ramp Services Manager 03/26/18 Gianna Hodge, PEDIATRIC ONCOLOGY NURSE.OPTICAL ENGINEER [address] [facility] [place] [address] Nurse Practitioner Hematology/Oncology 03/26/18 Sales And Marketing Executive Relationship Specialty Start Date End Date Francisca Wade MD [address] [place] [address] PCP - General Internal Medicine 12/16/24 Jun Arriola DO Physician Hematology 03/26/18 Lorie Ozuna RN [address] [facility] [place] [address] Cargo And Ramp Services Manager 03/26/18 Gianna Hodge, PEDIATRIC ONCOLOGY NURSE.OPTICAL ENGINEER [address] [facility] [address] Nurse Practitioner Hematology/Oncology 03/26/18 Sales And Marketing Executive Relationship Specialty Start Date End Date Francisca Wade MD [address] [place] [address] PCP - General Internal Medicine 07/18/24 Sales And Marketing Executive Relationship Specialty Start Date End Date Francisca Wade MD [address] [place] [address] PCP - General Internal Medicine 07/18/24 Sales And Marketing Executive Relationship Specialty Start Date End Date Francisca Wade MD [address] [place] [address] PCP - General Internal Medicine 12/16/24 Jun Arriola DO Physician Hematology 03/26/18 Lorie Ozuna RN [address] [facility] [place] [address] Cargo And Ramp Services Manager 03/26/18 Gianna Hodge, PEDIATRIC ONCOLOGY NURSE.OPTICAL ENGINEER [address] [facility] [place] [address] Nurse Practitioner Hematology/Oncology 03/26/18 Sales And Marketing Executive Relationship Specialty Start Date End Date Francisca Wade MD [address] [place] [address] PCP - General Internal Medicine 12/16/24 Jun Arriola DO Physician Hematology 03/26/18 Lorie Ozuna RN [address] [facility] [place] [address] Cargo And Ramp Services Manager 03/26/18 Gianna Hodge, JOHN.OPTICAL ENGINEER [address] [facility] [place] [address] Nurse Practitioner Hematology/Oncology 03/26/18 Sales And Marketing Executive Relationship Specialty Start Date End Date Francisca Wade MD [address] [place], [place] [address] PCP - General Internal Medicine 12/16/24 Jun Arriola DO Physician Hematology 03/26/18 Lorie Ozuna, ELIAS [address] [facility] [place] [address] Cargo And Ramp Services Manager 03/26/18 Gianna Hodge, JOHN.OPTICAL ENGINEER [address] [facility] [place] [address] Nurse Practitioner Hematology/Oncology 03/26/18 Sales And Marketing Executive Relationship Specialty Start Date End Date Francisca Wade MD [address] [place] [address] PCP - General Internal Medicine 12/16/24 Jun Arriola DO Physician Hematology 03/26/18 Lorie Ozuna RN [address] [facility] [place] [address] Cargo And Ramp Services Manager 03/26/18 Gianna Hodge, PEDIATRIC ONCOLOGY NURSE.OPTICAL ENGINEER [address] [facility] [place] [address] Nurse Practitioner Hematology/Oncology 03/26/18 Sales And Marketing Executive Relationship Specialty Start Date End Date Francisca Wade MD [address] [place] [place] [address] PCP - General Internal Medicine 12/16/24 Jun Arriola DO Physician Hematology 03/26/18 Lorie Ozuna RN [address] [facility] [place] [address] Cargo And Ramp Services Manager 03/26/18 Gianna Hodge APRN.OPTICAL ENGINEER [address] [place] [address] [place] [address] Nurse Practitioner Hematology/Oncology 03/26/18 Sales And Marketing Executive Relationship Specialty Start Date End Date Francisca Wade MD [address] [place] [address] PCP - General Internal Medicine 12/16/24 Jun Arriola DO Physician Hematology 03/26/18 Lorie Ozuna RN [address] [facility] [place] [address] Cargo And Ramp Services Manager 03/26/18 Gianna Hodge APRN.OPTICAL ENGINEER [address] [place] [address] [place] [address] Nurse Practitioner Hematology/Oncology 03/26/18 Goals (unrecognized section [...] Lacey Singer RN)1133 (Given - Provider: George Ha RN)1731 (Given - Provider: George Ha RN)2309 (Given - Provider: Virgil Gonzalez RN) 0600 (Not Given - Provider: Virgil Gonzalez RN - Reason: Contraindicated - Comment: Max dose in 24hrs reached)1205 (Given - Provider: Chloe Vela RN)1805 (Given - Provider: Chloe Vela RN)2355 (Given - Provider: Santi Parks RN) 0539 (Given - Provider: Santi Parks RN)1135 [...] Miranda Dudley RN)1134 (Given - Provider: Miranda [place], ELIAS)1717 (Given - Provider: Miranda [place]ley, ELIAS) carvediloL (COREG) tablet 6.25 mg 6.25 mg, [...] RN)1717 (Given - Provider: Miranda Dudley RN) cholecalciferol (vitamin D3) tablet 2,000 Units 2,000 Units, oral, Daily, First dose on Mon01/18/24 at 1600 0904 (Given - Provider: George Ha RN) 0925 (Given - Provider: Chloe Vela RN) 0836 (Given - Provider: Miranda [place], ELIAS) citalopram (CeleXA) tablet 20 mg 20 mg, oral, Daily, First dose on Mon01/17/24 at 1715, Look-alike/sound-alike medication - verify indication for use., Indications: major depressive disorder 0904 (Given - Provider: George Ha RN) 0925 (Given - Provider: Chloe Vela RN) 0836 (Given - Provider: Miranda Dudley RN) enoxaparin (LOVENOX) syringe 40 mg 40 mg, subcutaneous, Daily, First dose on Mon01/19/24 at 0600, When Creatinine Clearance 30 mL/min or greater Look-alike/sound-alike medication - verify indication for use. 0615 (Given - Provider: Lacey Singer RN) 0516 (Given - Provider: Virgil Gonzalez RN) 0539 (Given - Provider: Santi Parks RN) ergocalciferol (DRISDOL) capsule 50,000 Units 50,000 [...] Gonzalez RN) 0925 (Given - Provider: Chloe Vela RN)1205 (Given - Provider: Chloe Vela RN)1757 (Given - Provider: Chloe Vela, RN)2215 (Given - Provider: Santi Parks, ELIAS) 0836 (Given - Provider: Miranda Dudley, RN)1355 (Given - Provider: Miranda Dudley, RN)1717 (Given - Provider: Miranda Dudley, RN) insulin lispro (HumaLOG) injection 1-4 Units [...] 2154 (Given - Provider: Virgil Gonzalez RN) 210 (Not Given - Provider: Santi Parks, ELIAS - Reason: Patient/family refused - Comment: Patient [...] Reason: Order parameters not met - Comment: [phone] (Not Given - Provider: Miranda Dudley RN - Reason: Order parameters not met - Comment: [phone] (Not Given - Provider: Miranda Dudley RN - Reason: Order parameters not met - Comment: [id number]) lidocaine (LIDODERM) 5 % 1 patch 1 [...] Santi Parks RN - Comment: upper back) 09 (Medication Removed - Provider: Miranda Dudley, ELIAS) [...] Written (JAYESH) 0617 (Given - Provider: Lacey Signer, ELIAS) 0515 (Given - Provider: Virgil Gonzalez, ELIAS) 0539 [...] refused) 0900 (Not Given - Provider: Miranda Dudley, ELIAS - Reason: Patient/family refused) rifAXIMin (XIFAXAN) tablet 550 mg 550 mg, oral, Every 12 hours scheduled, First dose on Mon01/19/24 at 0900, Look-alike/sound-alike medication - verify indication for use. 0907 (Given - Provider: George Ha, RN)2154 (Given - Provider: Virgil Gonzalez, RN) 925 (Given - Provider: Chloe Vela, ELIAS)2107 (Given - Provider: Santi Parks, ELIAS) 0836 (Given - Provider: Miranda Dudley, RN) sennosides-docusate sodium (SENOKOT-S) 8.6-50 mg 2 tablet 2 tablet, oral, 2 times daily, First dose on Mon01/17/24 at 2100 0905 (Given - Provider: George Ha, RN)2099 (Not Given - Provider: Virgil Gonzalez RN - Reason: Patient/family refused) 0900 (Not Given - Provider: Chloe Vela RN - Reason: Patient/family refused)2100 (Not Given - Provider: Santi Parks RN - Reason: Patient/family refused) 0900 (Return to [facility] - Provider: Miranda Dudley, ELIAS) tamsulosin (FLOMAX) 24 hr capsule 0.4 mg 0.4 mg, oral, Nightly, First dose on Mon01/17/24 at 2200, Do not crush or chew. 2154 (Given - Provider: Virgil Gonzalez RN) 2107 (Given - Provider: Santi Parks, ELIAS) Continuous Medication Order 01/20/2024 01/21/2024 01/22/2024 sodium [...] \[email or web address]\epic \EPIC_Reference\Orders\Re spiratory Care Guidelines\CPG Bronchodilator 2020.pdf cyclobenzaprine (FLEXERIL) tablet 10 mg 10 mg, oral, 2 times daily PRN, muscle spasms, Starting on Mon01/17/24 at 1714 1030 (Given - Provider: Chloe Vela, ELIAS) 0717 (Given - Provider: Miranda Dudley RN) dextrose (GLUTOSE) 40 % gel 15 g [...] Virgil Gonzalez RN)0813 (Given - Provider: George Ha, RN)1133 (Given - Provider: George Ha RN)1408 (Given - Provider: George Ha, RN)1731 (Given - Provider: George Ha RN)2124 [...] Virgil Gonzalez RN)1248 (Given - Provider: George Ha RN)1604 (Given - Provider: George Ha RN)2308 (Given - Provider: Virgil Gonzalez RN) 0514 (Given - Provider: Virgil Gonzalez RN)0150 (Given - Provider: Chloe Vela RN)1204 (Given - Provider: Chloe Vela, RN)1534 (Given - Provider: Chloe Vela RN)2220 (Given - Provider: Santi Parks, ELIAS) 0232 (Given - Provider: Santi Parks, RN)0717 (Given - Provider: Miranda Dudley, RN)1135 (Given - Provider: Miranda Dudley, ELIAS)1447 (Given - Provider: Miranda Dudley RN)1740 (Given - Provider: Miranda Dudley RN) oxyCODONE (ROXICODONE) immediate release tablet 5 [...] medications orally. 0417 (Given - Provider: Santi aPrks RN)1140 (Given - Provider: Antionette Smith RN)2014 [...] mg (COMPLETED) 40 mg, intravenous, Once, On [place] 02/01/24 [...] RN - Reason: Order parameters not met) 2199 (Not Given - Provider: Carin Contreras RN - Reason: Order parameters not met) 2199 (Due) losartan (COZAAR) tablet 50 mg 50 mg, oral, Daily, First dose (after last modification) on Mon01/30/24 at 0900, Hold for sbp less 120 Look-alike/sound-alike medication - verify indication for use. 36 (Given - Provider: Santi Parks RN)2015 (Given - Provider: Lacey Singer RN) 2299 (Not Given - Provider: Carin Contreras RN - Reason: Patient/family refused) 2299 (Due - Provider: Bertha Avalos [facility]) magnesium oxide (MAGOX) tablet 400 mg 400 mg, oral, Daily, First dose on Mon01/29/24 at 1200 0805 (Given - Provider: Antionette Smith RN) 0841 (Given - Provider: Lian Silva RN) 0822 (Given - Provider: Lian Silva RN) [...] 0516 (Given - Provider: Carin Contreras RN) rifAXIMin (XIFAXAN) tablet 550 mg 550 mg, oral, Every 12 hours scheduled, First dose on Mon01/29/24 at 1200, Look-alike/sound-alike medication - verify indication for use. 08 (Given - Provider: Antionette Smith RN)2015 (Given - Provider: Lacey Singer RN) 0900 (Hold - Provider: Lian Silva RN - Reason: Medication not available)1219 (Given - Provider: Lian Silva RN)2122 (Given - Provider: Carin Contreras RN) 0821 (Given - Provider: Lian Silva RN)2100 (Due) [...] RN)1232 (Given - Provider: Lian Silva RN)1700 (Due)2200 (Due) tamsulosin (FLOMAX) 24 hr capsule 0.4 mg 0.4 mg, oral, Nightly, First dose on Mon01/29/24 at 2200, Do not crush or chew. 2015 (Given - Provider: Lacey Singer RN) 2121 (Given - Provider: Carin Contreras RN) 220 (Due) traZODone (DESYREL) tablet 50 mg 50 mg, oral, Nightly, First dose on Mon01/29/24 at 2200, Look-alike/sound-alike medication - verify indication for use. 0037 (Given - Provider: Santi Parks RN - Comment: Per pt request)2015 (Given - Provider: Lacey Singer, ELIAS) 010 (Given - Provider: Carin Contreras, ELIAS - Comment: per patient)2199 (Due) PRN Medication Order 02/01/2024 02/02/2024 02/03/2024 cyclobenzaprine (FLEXERIL) tablet 10 mg 10 mg, oral, 2 times daily PRN, muscle spasms, Starting on Mon01/29/24 at 1151 0037 (Given - Provider: Santi Parks RN) 0836 (Given - Provider: Lian Silva, ELIAS)2121 (Given - Provider: Carin Contreras, ELIAS) 1228 (Return to Cabinet - Provider: Lian Silva RN - Comment: [...] Antionette Smith, ELIAS)2117 (Given - Provider: Lacey Singer RN) 0221 (Not Given - Provider: Lacey Singer [...] Dionisio Ware RN)0811 (Given - Provider: Antionette Smith, ELIAS)1207 (Given - Provider: Antionette Smith, ELIAS)1611 (Given - Provider: Antionette Smith, ELIAS)2019 (Given - Provider: Lacey Singer, ELIAS)2351 (Given - Provider: Lacey Singer, ELIAS) 0521 (Given - Provider: Lacey Singer RN)0918 [...] or prosecute any alcohol or drug abuse patient.[facility] the event this information is protected by the Federal Confidentiality of Alcohol and Drug Abuse Patient Records regulations: The Federal rules restrict any use of the information to criminally investigate or prosecute any alcohol or drug abuse patient.[facility] ClinicIn the event this information is protected by the Federal Confidentiality of Alcohol and Drug Abuse Patient Records regulations: The Federal rules restrict any use of the information to criminally investigate or prosecute any alcohol or drug abuse patient.[facility] Clinic[facility] the event this information is protected by the Federal Confidentiality of Alcohol and Drug Abuse Patient Records regulations: The Federal rules restrict any use of the information to criminally investigate or prosecute any alcohol or drug abuse patient.[facility] Clinic[facility] the event this information is protected by the Federal Confidentiality of Alcohol and Drug Abuse Patient Records regulations: The Federal rules restrict any use of the information to criminally investigate or prosecute any alcohol or drug abuse patient.[facility] Clinic[facility] the event this information is protected by the Federal Confidentiality of Alcohol and Drug Abuse Patient Records regulations: The Federal rules restrict any use of the information to criminally investigate or prosecute any alcohol or drug abuse patient.[facility] Clinic[facility] the event this information is protected by the Federal Confidentiality of Alcohol and Drug Abuse Patient Records regulations: The Federal rules restrict any use of the information to criminally investigate or prosecute any alcohol or drug abuse patient.[facility] ClinicIn the event this information is protected by the Federal Confidentiality of Alcohol and Drug Abuse Patient Records regulations: The Federal rules restrict any use of the information to criminally investigate or prosecute any alcohol or drug abuse patient.[facility] ClinicIn the event this information is protected by the Federal Confidentiality of Alcohol and Drug Abuse Patient Records regulations: The Federal rules restrict any use of the information to criminally investigate or prosecute any alcohol or drug abuse patient.[facility] Clinic[facility] the event this information is protected by the Federal Confidentiality of Alcohol and Drug Abuse Patient Records regulations: The Federal rules restrict any use of the information to criminally investigate or prosecute any alcohol or drug abuse patient.[facility] ClinicIn the event this information is protected by the Federal Confidentiality of Alcohol and Drug Abuse Patient Records regulations: The Federal rules restrict any use of the information to criminally investigate or prosecute any alcohol or drug abuse patient.[facility] ClinicIn the event this information is protected by the Federal Confidentiality of Alcohol and Drug Abuse Patient Records regulations: The Federal rules restrict any use of the information to criminally investigate or prosecute any alcohol or drug abuse patient.[facility] ClinicIn the event this information is protected by the Federal Confidentiality of Alcohol and Drug Abuse Patient Records regulations: The Federal rules restrict any use of the information to criminally investigate or prosecute any alcohol or drug abuse patient.[facility] ClinicIn the event this information is protected by the Federal Confidentiality of Alcohol and Drug Abuse Patient Records regulations: The Federal rules restrict any use of the information to criminally investigate or prosecute any alcohol or drug abuse patient.[facility] ClinicIn the event this information is protected by the Federal Confidentiality of Alcohol and Drug Abuse Patient Records regulations: The Federal rules restrict any use of the information to criminally investigate or prosecute any alcohol or drug abuse patient.[facility] FOR RECORDS PERTAINING TO PATIENTS WHO ARE [...] BE BASED ON THE PRIMARY CLINICAL RECORDS. [facility] [employer] [facility]. provides no warranty or guarantee of the accuracy or completeness of information in this document.
[2025-05-20] MEDS: OXYCODONE HCL/ACETAMINOPHEN 5MG/325MG 1 TAB PO (18:32)
[2025-05-20] MEDS: ORPHENADRINE 60 MG/2 ML VIAL IM (18:33)
[2025-05-20] MEDS: DEXAMETHASONE SOD PHOS 10 MG/ML VIAL IM (18:33)
--- NOTE | 2025-05-20 18:42 | ED.BACK1 ---
HPI HPI - Back Pain/Injury General Chief Complaint: Back Pain/Injury Stated Complaint: LOWER BACK AND HIP PAIN DOWN TO ANKLE Time Seen by Provider: 05/20/25 17:41 Source: patient Mode of arrival: walk-in Limitations: no limitations History of Present Illness HPI Narrative: The patient is a 54-year-old male presenting with back pain. He has a known history of spinal stenosis and is currently under the care of neurosurgery. He reports undergoing an EMG today and is being evaluated for possible surgery or spinal cord stimulator placement in the future. His pain is localized to the right lumbar region, radiating to the right hip, knee, and ankle, described as stinging in nature. He states this pain is chronic but has been exacerbated recently. He denies saddle anesthesia, urinary retention, or bowel incontinence. He is afebrile, denies abdominal pain, lightheadedness, or dizziness. He reports that his neurosurgeon advised him to come to the ED for pain management. He has follow-up appointments scheduled with other specialists for unrelated issues. Related Data Home Medications ?Medication ?Instructions ?Recorded ?Confirmed albuterol sulfate 90 mcg/actuation 2 inh inhalation Q6H PRN shortness 10/08/24 12/27/24 aerosol inhaler (Ventolin HFA) of breath or wheezing carvedilol 3.125 mg tablet 6.25 mg PO Q12H 10/08/24 12/27/24 citalopram 20 mg tablet 40 mg PO DAILY 10/08/24 12/27/24 colestipol 1 gram tablet 1 g PO DAILY 10/08/24 12/27/24 cyclobenzaprine 10 mg tablet 10 mg PO Q12H PRN spasms 10/08/24 12/27/24 eluxadoline 100 mg tablet (Viberzi) 100 mg PO BID 10/08/24 12/27/24 fenofibrate 160 mg tablet 160 mg PO DAILY 10/08/24 12/27/24 hydrochlorothiazide 25 mg tablet 25 mg PO DAILY 10/08/24 12/27/24 hyoscyamine sulfate 0.125 mg tablet 0.125 mg PO Q6H 10/08/24 12/27/24 insulin aspart 1 sliding scale dose subcut 10/08/24 12/27/24 (niacinamide)(U-100) 100 unit/mL(3 USEASDIRECTD mL) subcutaneous pen (Fiasp FlexTouch U-100 Insulin) insulin degludec 100 unit/mL (3 20 unit subcut DAILY 10/08/24 12/27/24 mL) subcutaneous pen (Tresiba FlexTouch U-100 insulin) linagliptin 2.5 mg-metformin 1,000 1 tab PO BID 10/08/24 12/27/24 mg tablet (Jentadueto) losartan 50 mg tablet 50 mg PO DAILY 10/08/24 12/27/24 magnesium oxide 400 mg (241.3 mg 400 mg PO DAILY 10/08/24 12/27/24 magnesium) tablet omeprazole 40 mg capsule,delayed 40 mg PO DAILY 10/08/24 12/27/24 release ondansetron 4 mg disintegrating 4 mg translingual Q8H PRN nausea 10/08/24 12/27/24 tablet and vomiting rifaximin 550 mg tablet (Xifaxan) 550 mg PO BID 10/08/24 12/27/24 semaglutide 0.25 mg or 0.5 mg (2 0.5 mg subcut QWEEK 10/08/24 12/27/24 mg/3 mL) subcutaneous pen injector (Ozempic) sucralfate 1 gram tablet 1 g PO Q6H 10/08/24 12/27/24 tamsulosin 0.4 mg capsule 0.4 mg PO Q24H 10/08/24 12/27/24 trazodone 50 mg tablet 50 mg PO DAILY 10/08/24 12/27/24 gabapentin 300 mg capsule 400 mg PO TID 12/27/24 12/27/24 Previous Rx's ?Medication ?Instructions ?Recorded oxycodone-acetaminophen 5 mg-325 1 tab PO Q6H PRN pain #20 tabs 03/08/25 mg tablet (Percocet) prednisone 10 mg tablet See Rx Instructions .Route 03/08/25 .COMPLEX #18 tabs methocarbamol 750 mg tablet 750 mg PO Q8H spasm #20 tabs 05/20/25 oxycodone-acetaminophen 5 mg-325 1 tab PO Q6H PRN pain #14 tabs 05/20/25 mg tablet (Percocet) Allergies Allergy/AdvReac Type Severity Reaction Status Date / Time clindamycin Allergy Nausea Verified 05/20/25 17:35 insulin glargine (From Allergy Nausea Verified 05/20/25 17:35 Basaglar KwikPen U-100 Insulin) Opioid HPI Opioid Management Most Recent Opioid Data: Last Pain Scale 10 Today, 18:23 [facility] Medical History (Updated 05/20/25 @ 18:49 by HUBERT CASTREJON) Cirrhosis of liver ?K74.60 - Unspecified cirrhosis of liver (ICD-10) Pelvis fracture ?S32.9XXA - Fracture of unspecified parts of lumbosacral spine and pelvis, initial encounter for closed fracture (ICD-10) Femur fracture, right ?S72.91XA - Unspecified fracture of right femur, initial encounter for closed fracture (ICD-10) Diabetes ?E11.9 - Type 2 diabetes mellitus without complications (ICD-10) Social History Little interest or pleasure in doing things: not at all Feeling down, depressed, or hopeless: not at all Exam Narrative Exam Narrative: General: Alert, in mild discomfort, finding it difficult to get comfortable (baseline for him). Back: Palpable tenderness in the right lumbar paraspinal region; no midline vertebral tenderness or step-off. Neuro: Positive straight leg raise on the right. No focal neurologic deficits. No evidence of cauda equina syndrome. Lower extremities: Noted bronzing of the skin. Posterior tibial pulses present. Heart/Lungs: Unremarkable. Abdomen: Soft, nontender Psych: no acute findings Skin: no rashes, he does have bronzing on lower extremities, which is chronic. No signs of cellulitis, no diaphoresis. Constitutional Vital Signs, click to edit/add: Last Vital Signs Temp 98.2 F 05/20/25 17:32 Pulse 70 05/20/25 19:12 Resp 18 05/20/25 19:12 BP 160/90 H 05/20/25 19:12 Pulse Ox 97 05/20/25 19:12 O2 Del Method Room Air 05/20/25 19:12 Course Vital Signs Vital signs: Vital Signs Temperature 98.2 F 05/20/25 17:32 Pulse Rate 102 H 05/20/25 17:32 Respiratory Rate 18 05/20/25 17:32 Blood Pressure 169/99 H 05/20/25 17:32 Pulse Oximetry 100 05/20/25 17:32 Oxygen Delivery Method Room Air 05/20/25 17:32 Temperature 98.2 F 05/20/25 17:32 Pulse Rate 70 05/20/25 19:12 Respiratory Rate 18 05/20/25 19:12 Blood Pressure 160/90 H 05/20/25 19:12 Pulse Oximetry 97 05/20/25 19:12 Oxygen Delivery Method Room Air 05/20/25 19:12 MDM - Back Pain/Injury MDM Narrative Medical decision making narrative: This is a 54-year-old male with chronic right-sided lumbar radiculopathy secondary to spinal stenosis, currently under neurosurgical care and being evaluated for surgical intervention or spinal cord stimulator. He was seen today and evaluated by EMG for his peripheral neuropathy. He was told to come to the ER for pain control.He has had this pain for over a week at this point. He always has baseline pain. He did ambulat in and out. He presents today for acute exacerbation of his baseline pain, without red flag symptoms (no saddle anesthesia, urinary retention, or bowel incontinence). He states he does have urinary trouble, but does not want to disclose other information regarding this issue. He states he is seeing urology tomorrow and GI for a stomach issue that he does not want addressed at this visit, which I offered. he is only here for pain control per his physician who recommended coming. His OARRS is not significant for recent narcotic fill. Exam is notable for right-sided paraspinal tenderness and positive straight leg raise, but no midline tenderness or neurologic deficits suggestive of cauda equina. He has tried Flexeril and tizanidine without significant relief. In the ED, he was offered and agreed to Decadron, Norflex, and Percocet for symptomatic relief. Muscle relaxant switched due to lack of efficacy with prior agents. He was discharged with Percocet and Robaxin. He is established with appropriate follow-up and has additional specialist appointments scheduled. He was advised to return for any worsening or concerning symptoms. Discharge instructions reviewed. Discussed with ED attending Dr. Fontana. I saw patient ambulate out of the ED. Medical Records Attestation: I reviewed the patient's medical records. Discharge Plan Discharge Chief Complaint: Back Pain/Injury Clinical Impression: Acute exacerbation of chronic low back pain Patient Disposition: Home, Self-Care Time of Disposition Decision: 18:48 Condition: Good Mode of Transportation: Private Vehicle Prescriptions / Home Meds: New methocarbamol 750 mg tablet 750 mg PO Q8H Qty: 20 0RF oxycodone-acetaminophen [Percocet] 5-325 mg tablet 1 tab PO Q6H PRN (Reason: pain) Qty: 14 0RF No Action gabapentin 300 mg capsule 400 mg PO TID prednisone 10 mg tablet See Rx Instructions .ROUTE .COMPLEX Qty: 18 0RF Rx Instructions: 3 by mouth daily for three days then 2 by mouth daily for three days then 1 by mouth daily for three days oxycodone-acetaminophen [Percocet] 5-325 mg tablet 1 tab PO Q6H PRN (Reason: pain) Qty: 20 0RF albuterol sulfate [Ventolin HFA] 90 mcg/actuation HFA aerosol inhaler 2 inh inhalation Q6H PRN (Reason: shortness of breath or wheezing) carvedilol 3.125 mg tablet 6.25 mg PO Q12H citalopram 20 mg tablet 40 mg PO DAILY colestipol 1 gram tablet 1 g PO DAILY cyclobenzaprine 10 mg tablet 10 mg PO Q12H PRN (Reason: spasms) fenofibrate 160 mg tablet 160 mg PO DAILY Fiasp FlexTouch U-100 Insulin 100 unit/mL (3 mL) insulin pen 1 sliding scale dose subcut USEASDIRECTD hydrochlorothiazide 25 mg tablet 25 mg PO DAILY hyoscyamine sulfate 0.125 mg tablet 0.125 mg PO Q6H Jentadueto 2.5-1,000 mg tablet 1 tab PO BID losartan 50 mg tablet 50 mg PO DAILY magnesium oxide 400 mg (241.3 mg magnesium) tablet 400 mg PO DAILY omeprazole 40 mg capsule,delayed release(DR/EC) 40 mg PO DAILY ondansetron 4 mg tablet,disintegrating 4 mg translingual Q8H PRN (Reason: nausea and vomiting) Ozempic 0.25 mg or 0.5 mg (2 mg/3 mL) pen injector 0.5 mg SUBCUT QWEEK sucralfate 1 gram tablet 1 g PO Q6H tamsulosin 0.4 mg capsule 0.4 mg PO Q24H trazodone 50 mg tablet 50 mg PO DAILY insulin degludec [Tresiba FlexTouch U-100] 100 unit/mL (3 mL) insulin pen 20 unit subcut DAILY Viberzi 100 mg tablet 100 mg PO BID Rx Instructions: must administer with a meal/food Xifaxan 550 mg tablet 550 mg PO BID Print Language: Persian Instructions: Pain Management (ED), Acute Low Back Pain (ED), Opioid Safety (ED) Referrals: Francisca Wade MD [Primary Care Provider] - 1 week Discharge Date/Time: 05/20/25 19:14
[2025-05-20 19:12] VITALS: BP 160/90; PULSE 70; O2SAT 97
== END 2025-05-20 19:14 | disposition home or self-care (01) ==
PROVIDERS: Emergency Provider Student in an Organized Health Care Education/Training Program; PCP Internal Medicine
DX: M54.50 Low back pain, unspecified (principal); G89.29 Other chronic pain
CPT/HCPCS: 96372; 99284; J1100; J2360